=== PATIENT | male | born 1955 | race Two or more races ===

== ENCOUNTER 2023-01-18 13:40 | Outpatient (OUT) | payer BC, MEDICARE, SELFPAY ==
[2023-01-18 13:54] LABS: Bilirubin Urine NEGATIVE (NEGATIVE); Blood Urine NEGATIVE (NEGATIVE); Clarity Urine CLEAR (CLEAR); Color Urine LT. YELLOW (YELLOW); Glucose Urine UA NEGATIVE (NEGATIVE); Ketones Urine NEGATIVE (NEGATIVE); Leukocyte Esterase Urine NEGATIVE (NEGATIVE); Nitrite Urine NEGATIVE (NEGATIVE); Protein Urine NEGATIVE (NEG/TRACE)
[2023-01-18 13:56] LABS: Hematocrit 40.8 % (42.0-54.0); Hemoglobin 13.3 g/dL (14.0-18.0)
[2023-01-18 15:17] LABS: Alanine Aminotransferase 58 U/L (16-63); Albumin Globulin Ratio 0.9; Albumin Level 3.8 g/dL (3.4-5.0); Alkaline Phosphatase 94 U/L (46-116); Anion Gap 13.5; Aspartate Amino Transferase 47 U/L (15-37); BUN Creatinine Ratio 14.6; Bilirubin Total 0.5 mg/dL (0.2-1.0); Calcium 9.4 mg/dL (8.5-10.1); Carbon Dioxide 25.9 mmol/L (21.0-32.0); Chloride 105 mmol/L (98-107); Estimated GFR (African America 46 (>=60); Estimated GFR (Non-African Ame 38 (>=60); Globulin 4.2 g/dL; Glucose 106 mg/dL (74-106); Magnesium 1.9 mg/dL (1.8-2.4); Phosphorus 3.9 mg/dL (2.6-4.7); Potassium 4.4 mmol/L (3.5-5.1); Sodium 140 mmol/L (136-145); Uric Acid 5.9 mg/dL (3.5-7.2)
[2023-01-18 15:30] LABS: Creatinine Urine Random 104.64 mg/dL (20.00-300.00); Protein Creatinine Ratio Urine 0.14; Total Protein Urine Random 14.3 mg/dL (<=11.9)
[2023-01-19 11:09] LABS: PTH, Intact 29 pg/mL (15-65)
== END 2023-01-18 13:41 | disposition home or self-care (01) ==
LOC: LAB 02-05 15:02
PROVIDERS: PCP Internal Medicine; Visit Provider Internal Medicine Nephrology
DX: I12.9 Hypertensive chronic kidney disease with stage 1 through stage 4 chronic kidney disease, or unspecified chronic kidney disease (principal); N18.32 Chronic kidney disease, stage 3b; N17.9 Acute kidney failure, unspecified; I25.810 Atherosclerosis of coronary artery bypass graft(s) without angina pectoris; E78.5 Hyperlipidemia, unspecified; E87.5 Hyperkalemia
CPT/HCPCS: 36415; 80053; 81003; 82306; 82570; 83735; 83970; 84100; 84156; 84550; 85014; 85018

== ENCOUNTER 2023-02-25 13:18 | Outpatient (OUT) | payer BC, MEDICARE, SELFPAY ==
--- NOTE | 2023-02-25 14:03 | CA_ITS ---
The [facility] Test Date: 2023-02-25 Pat Name: KEL CASTILLO Department: Room: - Gender: Male [employer] Insurance Claim Examiner: Sonali Paula : 1955 Requested By: [id number] Order Number: [id number] Reading MD: LINDA FAGAN Interpretive Statements Monophasic doppler waveforms PVR waveforms with normal upstroke, delayed amplitude and loss of dicrotic notch Right: - significant gradient between the brachial and thigh cuff - abnormal HUBER Left: - significant gradient between the brachial and thigh cuff - abnormal HUBER Impression: - significant right inflow (femoral artery or above) arterial disease with moderate hemodynamic impairment of the right lower extremity at rest (right HUBER 0.64) - significant left inflow (femoral artery or above) arterial disease with moderate hemodynamic impairment of the left lower extremity at rest (left HUBER 0.71) Electronically Signed On 02-26-2023 7:18:17 EDT by LINDA FAGAN
== END 2023-02-25 13:19 | disposition home or self-care (01) ==
LOC: CARD 13:18
PROVIDERS: PCP Internal Medicine; Visit Provider Internal Medicine
DX: I73.9 Peripheral vascular disease, unspecified (principal)
CPT/HCPCS: 93923

== ENCOUNTER 2023-03-18 10:31 | Outpatient (OUT) | payer BC, MEDICARE, SELFPAY ==
[2023-03-18 12:02] LABS: Estimated Average Glucose 111 mg/dL; Glycohemoglobin A1C 5.5 % (4.5-6.2)
[2023-03-18 12:09] LABS: Chol HDL Ratio 4.7; Cholesterol 166 mg/dL (<=200); HDL Cholesterol 35 mg/dL (40-60); Triglycerides 208 mg/dL (<=150); VLDL CHOLESTEROL 41.6 mg/dL
== END 2023-03-18 10:32 | disposition home or self-care (01) ==
PROVIDERS: PCP Internal Medicine; Visit Provider Internal Medicine
DX: E78.5 Hyperlipidemia, unspecified (principal); Z13.1 Encounter for screening for diabetes mellitus
CPT/HCPCS: 36415; 80061; 83036

== ENCOUNTER 2023-07-10 15:17 | Emergency (ER) | payer BC, MEDICARE, SELFPAY ==
[2023-07-10 15:20] VITALS: BP 151/77; PULSE 71; RESP 16; TEMP 36.6; O2SAT 94; BMI 31.2
--- NOTE | 2023-07-10 15:32 | XR_ITS ---
The [address] [address] Patient Name: KEL CASTILLO MRN: [id number] date: 1955 Sex: M Assigned Patient Location: ED.MAIN Current Patient Location: ER Accession/Order Number: [id number] Exam Date: 07/10/2023 15:48 Report Date: 07/10/2023 16:08 At the request of: AGUEDA CAPUTO Procedure: XR shoulder LT min 2V EXAM: XR shoulder LT min 2V HISTORY: Shoulder pain after fall COMPARISON: None. TECHNIQUE: 3 views FINDINGS: No osseous lesion, fracture, dislocation or subluxation. Moderate degenerative changes of the acromioclavicular joint. Glenohumeral joint is unremarkable.. No visualized effusion. No visualized soft tissue edema. XR/XR shoulder LT min 2V IMPRESSION: No visualized acute abnormality Electronically authenticated by: BILL VENTURA Date: 07/10/2023 16:08
--- NOTE | 2023-07-10 15:34 | PC.NURSE ---
fell onto L shoulder 1 week ago. pain not going away and getting somewhat worse. did not have LOC. no otc meds today
--- NOTE | 2023-07-10 15:35 | ED.UPPEXIN1 ---
HPI - Extremity Injury (Upper) General Chief Complaint: Extremity Injury, Upper Stated Complaint: UPPER EXTREMITY INJURY Time Seen by Provider: 07/10/23 15:26 Source: patient History of Present Illness HPI narrative: 68 year old male presents to the ED for left shoulder pain s/p fall on 07/03/23. The pain has been increasing. Reports decreased ROM due to the pain. Denies injury to other areas. He developed bruising to the lateral upper arm and posterior shoulder within the past 1-2 days. Rates his pain 5/10 at this time. Related Data Previous Rx's Medication Instructions Recorded hydrocodone 5 mg-acetaminophen 325 1 tab PO Q8H PRN pain 4 days #12 07/10/23 mg tablet tabs Allergies Allergy/AdvReac Type Severity Reaction Status Date / Time No Known Drug Allergies Allergy Verified 07/10/23 15:24 Review of Systems ROS Constitutional Denies: fever or chills Ears, nose, mouth, and throat Denies: neck pain Cardiovascular Denies: chest pain Respiratory Denies: shortness of breath Gastrointestinal Denies: abdominal pain Musculoskeletal Reports: extremity pain and joint pain; Denies: neck pain Integumentary/Breast Reports: changes in skin color Exam Constitutional Vital Signs, click to edit/add: Last Vital Signs Temp 97.8 F 07/10/23 15:20 Pulse 71 07/10/23 15:20 Resp 16 07/10/23 15:20 BP 151/77 H 07/10/23 15:20 Pulse Ox 94 L 07/10/23 15:20 O2 Del Method Room Air 07/10/23 15:20 Common normals: oriented x3 General appearance: cooperative Eye Common normals: conjunctivae normal and no scleral icterus Neck & C-Spine Common normals: supple Cervical spine: cervical ROM normal; no pain with cervical ROM, no cervical spine tenderness, no paracervical muscle tenderness and no paracervical muscle spasm Chest Chest: symmetrical chest wall rise Respiratory Common normals: normal respiratory effort Effort & inspection: able to speak in complete sentences and symmetric chest movement Cardio Common normals: regular rate and regular rhythm Peripheral pulses: radial pulses present Extremity Left upper extremity: shoulder joint (Tenderness to anterior and posterior shoulder. No deformity. ) Left shoulder joint: ROM (Decreased due to pain.), upper arm (Purplish-yellow bruising to upper lateral arm and posterior shoulder.) and elbow joint (Full ROM. No deformity or tenderness.) Course Vital Signs Vital signs: Vital Signs Temperature 97.8 F 07/10/23 15:20 Pulse Rate 71 07/10/23 15:20 Respiratory Rate 16 07/10/23 15:20 Blood Pressure 151/77 H 07/10/23 15:20 Pulse Oximetry 94 L 07/10/23 15:20 Oxygen Delivery Method Room Air 07/10/23 15:20 Temperature 97.8 F 07/10/23 15:20 Pulse Rate 71 07/10/23 15:20 Respiratory Rate 16 07/10/23 15:20 Blood Pressure 151/77 H 07/10/23 15:20 Pulse Oximetry 94 L 07/10/23 15:20 Oxygen Delivery Method Room Air 07/10/23 15:20 MDM - Extremity Injury (Upper) MDM Narrative Medical decision making narrative: Pt has decreased ROM to the left shoulder. There is concern for rotator cuff injury. Imaging was negative for acute findings. OARRS was reviewed. A prescription was provided for [employer]. He was setup with an appointment on Saturday07/15/[address] Mcgowan. Differential Diagnosis Differential diagnosis: Likely dislocation of shoulder and other (Rotator cuff injury, shoulder sprain/strain.) Medical Records Attestation: I reviewed the patient's medical records. Imaging Data Left shoulder x-ray: Attestation: I have reviewed the pertinent imaging results. Radiologist's impression: Procedure: XR shoulder LT min 2V EXAM: XR shoulder LT min 2V HISTORY: Shoulder pain after fall COMPARISON: None. TECHNIQUE: 3 views FINDINGS: No osseous lesion, fracture, dislocation or subluxation. Moderate degenerative changes of the acromioclavicular joint. Glenohumeral joint is unremarkable.. No visualized effusion. No visualized soft tissue edema. XR/XR shoulder LT min 2V IMPRESSION: No visualized acute abnormality Electronically authenticated by: BILL VENTURA Date: 07/10/2023 16:08 Discharge Plan Discharge Chief Complaint: Extremity Injury, Upper Clinical Impression: Injury of left rotator cuff Patient Disposition: Home, Self-Care Time of Disposition Decision: 16:22 Condition: Good Mode of Transportation: Private Vehicle Prescriptions / Home Meds: New hydrocodone-acetaminophen 5-325 mg tablet 1 tab PO Q8H PRN (Reason: pain) 4 Days Qty: 12 0RF Instructions: Rotator Cuff Injury (ED) Stand Alone Forms: Portal Instructions Referrals: Carlyle Mcgowan MD [Physician] - 07/15/23 10:00 am Shaikh Grimes MD [Primary Care Provider] - 1 week Discharge Date/Time: 07/10/23 16:33
[2023-07-10] MEDS: OXYCODONE HCL/ACETAMINOPHEN 5MG/325MG 1 TAB PO (15:44)
== END 2023-07-10 16:33 | disposition home or self-care (01) ==
PROVIDERS: Emergency Provider Emergency Medicine; PCP Internal Medicine
DX: S46.002A Unspecified injury of muscle(s) and tendon(s) of the rotator cuff of left shoulder, initial encounter (principal); W19.XXXA Unspecified fall, initial encounter
CPT/HCPCS: 73030; 99283

== ENCOUNTER 2023-07-29 11:11 | Outpatient (OUT) | payer BC, MEDICARE, SELFPAY ==
--- NOTE | 2023-07-29 11:14 | XR_ITS ---
The [address] [address] Patient Name: KEL CASTILLO MRN: [id number] date: 1955 Sex: M Assigned Patient Location: [facility] Current Patient Location: [facility] Accession/Order Number: [id number] Exam Date: 07/29/2023 11:20 Report Date: 07/29/2023 16:01 At the request of: BIMAL ZHANG Procedure: XR shoulder LT min 2V EXAM: XR shoulder LT min 2V HISTORY: Closed Nondisplaced Fracture Of Proximal Left Humerus S42.29. COMPARISON: Left shoulder study dated 07/10/2023. TECHNIQUE: 3 views of the left shoulder were obtained. FINDINGS: No convincing evidence of acute fracture or dislocation. Glenohumeral relationship appears grossly unremarkable. Bwes-op-hefekgos degenerative changes about the acromioclavicular joint. Soft tissues are grossly within normal limits. Postoperative sternotomy wires and clips are present. XR/XR shoulder LT min 2V IMPRESSION: Left shoulder study fails to demonstrate definite acute fracture or dislocation. Follow-up as needed. Electronically authenticated by: FABIAN JOSHUA Date: 07/29/2023 16:01
== END 2023-07-29 11:12 | disposition home or self-care (01) ==
LOC: RAD 11:11
PROVIDERS: PCP Internal Medicine; Visit Provider Orthopaedic Surgery
DX: S42.295A Other nondisplaced fracture of upper end of left humerus, initial encounter for closed fracture (principal)
CPT/HCPCS: 73030

== ENCOUNTER 2023-08-26 11:20 | Outpatient (OUT) | payer BC, MEDICARE, SELFPAY ==
--- NOTE | 2023-08-26 | XR_ITS ---
[address] [address] Patient Name: KEL CASTILLO MRN: [id number] date: 1955 Sex: M Assigned Patient Location: [facility] Current Patient Location: [facility] Accession/Order Number: [id number] Exam Date: 08/26/2023 11:50 Report Date: 08/26/2023 15:14 At the request of: BIMAL ZHANG Procedure: XR shoulder LT min 2V 3 views of the left shoulder INDICATION: Pain COMPARISON: 07/29/2023 XR/XR shoulder LT min 2V IMPRESSION: Mild degenerative changes of the left shoulder without evidence for acute fracture or dislocation. Soft tissues are grossly unremarkable. Electronically authenticated by: VIDYA DEL VALLE Date: 08/26/2023 15:14
--- OUTSIDE RECORDS SUMMARY | 2023-08-26 11:28 | XMS_ITS | CCD ---
Author Name Unknown Address [address] [place] [address] Organization [facility] Care Team Providers Care Basketball Coach Name Role Phone AMBURN, JOMAR Unavailable Unavailable AMBURN, JOMAR Unavailable Unavailable AMBURN, JOMAR Unavailable Unavailable AMBURN, JOMAR Unavailable Unavailable AMBURN, JOMAR Unavailable Unavailable AMBURN, JOMAR Unavailable Unavailable Genesis, Thomas Unavailable Reuben Triana Unavailable Susannah Nevarez Unavailable Cristo Suazo Unavailable Cristo Suazo Unavailable Genesis, Thomas Unavailable Corona Monroe Unavailable Genesis, Thomas Unavailable MD Corona Monroe Attending Provider DO Daria Cardoza Primary Care Provider Genesis, Thomas Unavailable Nadira Choi Unavailable Lisseth Toscano Unavailable EBONY KAUFMAN Attending Unavailable EBONY KAUFMAN Referring Unavailable EBONY KAUFMAN Attending Unavailable JESSIE LAY Referring Unavailable JESSIE LAY Attending Unavailable Genesis, Thomas Unavailable SHAIKH Randolph ROCKWELL Consulting Unavailable SHAIKH Randolph R[place]LL Primary Care Unavailable SHAIKH Randolph R[place] Admitting Unavailable SHAIKH Randolph [place] Attending Unavailable SHAIKH Randolph R[place]LL Primary Care Unavailable VALERIE, DR FLORES Attending Unavailable VALERIE, DR FLORES Consulting Unavailable VALERIE, DR FLORES Admitting Unavailable LISSETH TOSCANO Admitting Unavailable LISSETH TOSCANO Attending Unavailable LISSETH TOSCANO Consulting Unavailable NON STAFF Primary Care Unavailable Lucy Cope Admitting Unavailable Lucy Cope Attending Unavailable Corona Monroe Admitting Unavailable Corona Monroe Attending Unavailable Daria Cardoza Primary Care Unavailable Medications Current Medications Medication Drug Class(es) Dates Sig (Normalized) Sig (Original) amLODIPine 5 mg oral tablet (20 sources) Dihydropyridine Calcium Channel Kelsy Start: 10-22-2019 take 5 mg by mouth once daily Amlodipine Active 5 MG PO Daily October 22, 2019 12:00am take 1 tablet by matt th every twenty-four hours amLODIPine Besylate 10 MG 1 tablet Orall y Once a day for 90 day(s) Active take 1 tablet by mouth every twe lve hours amLODIPine Besylate 5 MG 1 tablet Orally twice a day for 90 day(s) Active Comment on above: amlodipine 5 mg tabl et TAKE 1 TABLET BY MOUTH EVERY DAY aspirin 81 mg delayed release oral tablet (20 sources) Platelet Aggregation Inhibitor, Nonsteroidal Anti-inflammatory Drug Start: 10-22-2019 take 81 mg by mouth once daily Aspirin Active 81 MG PO Daily October 22, 2019 12:00am aspirin, enteric coated (ASPIRIN, ENTERIC COATED) 81 mg EC tablet q 24 HR. 0 Active take 1 tablet by mouth once shonna y Aspirin Adult Low Dose 81 MG 1 tablet Orally Once a day Active Comment on above: q 24 HR. atorvastatin 80 mg oral tablet (20 sources) HMG-CoA Reductase Inhibitor Start: 0 take 80 mg by mouth once daily Atorvastatin Active 80 MG PO Daily October 22, 2019 12:00am Comment on above: atorvastatin 80 mg t ablet TAKE 1 TABLET BY MOUTH EVERY DAY busPIRone hydrochloride 15 mg oral tablet (20 sources) Start: 0 End: 1 take 15 mg by mouth twice daily Buspirone Active 15 MG PO Twice daily September 13, 2020 1:00am Comment on above: buspirone 15 mg tabl et TAKE 1 TABLET BY MOUTH TWICE DAILY Centrum Silver 50+Men - (20 sources) Centrum Silver 5 0+Men - as directed Orally Active clopidogrel 75 mg oral tablet (20 sources) P2Y12 Platelet Inhibitor Start: 10-22-2019 take 75 mg by mouth once daily Clopidogrel Active 75 MG PO Daily October 22, 2019 12:00am Comment on above: clopidogrel 75 mg ta blet TAKE 1 TABLET BY MOUTH AT BEDTIME Fish Oils (20 sources) take 1 capsule by mouth once daily take 1 capsule by mouth once vijaya ly Fish Oil 1000 MG 1 capsule Orally Once a day Active 120 actuat fluticasone propionate 0.115 mg/actuat / salmeterol 0.021 mg/actuat metered dose inhaler (9 sources) Corticosteroid, beta2-Adrenergic Agonist take 2 puff(s) by inhalation twice daily 30 actuat fluticasone furoate 0.1 mg/actuat / umeclidinium 0.0625 mg/actuat / vilanterol 0.025 mg/actuat dry powder inhaler (8 sources) Anticholinergic, Corticosteroid, beta2-Adrenergic Agonist Start: 022 take 1 puff(s) by inhalation once daily Trelegy Ellipta 100-62.5-25 MCG/INH 1 puff Inhalation Once a day for 30 days Feb, Active 30 actuat fluticasone furoate 0.1 mg/actuat / vilanterol 0.025 mg/actuat dry powder inhaler (14 sources) Corticosteroid, beta2-Adrenergic Agonist Start: 021 Fluticasone Furoate-Vilanterol (Breo Ellipta) 100-25 mcg/dose blister with device Active 1 INH INHALATION Daily September 13, 2020 1:00am Start: 08-01-2020 End: 02-09-2022 take 1 puff(s) by mouth once daily BREO ELLIPTA 100-25 mcg/dose inhaler INHALE 1 PUFF BY MOUTH EVERY DAY 0 11/05/2021 02/09/2022 Discontinued Start: 08-01-2020 Comment on above: INHALE 1 PUFF BY MATT TH EVERY DAY 24 hr isosorbide mononitrate 60 mg extended release oral tablet (20 sources) Nitrate Vasodilator Start: 0 take 60 mg by mouth once daily Isosorbide Mononitrate Active 60 MG PO Daily October 22, 2019 12:00am Comment on above: isosorbide mononitra te ER 60 mg tablet,extended release 24 hr TAKE 1 TABLET BY MOUTH EVERY MORNING 24 hr metoprolol succinate 50 mg extended release oral tablet (20 sources) beta-Adrenergic Kelsy Start: 0 take 50 mg by mouth once daily Metoprolol Succinate Active 50 MG PO Daily October 22, 2019 12:00am take 1 tablet by matt th every twelve hours Metoprolol Succinate ER 50 MG 1 tablet Orally twice a day for 90 days Active take 1 capsule by mouth twice da aníbal Metoprolol Succinate 50 MG 1 capsule Orally twice a day Active Comment on above: metoprolol succinate ER 50 mg tablet,extended release 24 hr TAKE 1 TABLET BY MOUTH TWICE DAILY Multivitamin preparation (1 source) Start: 09-13-19 21 take 1 tablet by mouth once daily Multivitamin Active 1 TAB PO Daily September 13, 2020 1:00am Nitro Sublingual 0.4 0.4mg (20 sources) Nitro Sublingual 0.4 0.4mg 1 Sublingual Every 5min x3 PRN Active nitroglycerin 0.4 mg sublingual tablet (10 sources) Nitrate Vasodilator Start: 10-22-2019 Nitroglyce rin Active 0.4 MG SUBLINGUAL every 5 to 15 minutes October 22, 2019 12:00am nitroglycerin toscano blingual (NITROQUICK) 0.4 mg SL tablet nitroglycerin 0.4 mg sublingual tablet 0 Active Comment on above: nitroglycerin 0.4 mg sublingual tablet OLANZapine 5 mg oral tablet (20 sources) Atypical Antipsychotic Start: 0 take 5 mg by mouth once daily at bedtime Olanzapine Active 5 MG PO Daily at bedtime October 22, 2019 12:00am take 1 tablet by matt th every twenty-four hours OLANZapine 7.5 MG 1 tablet Orally Once a day for 30 days Active Comment on above: olanzapine 5 mg tabl et TAKE 1 TABLET BY MOUTH EVERY DAY AT BEDTIME Adolphus-3 Fatty Acids (1 source) Start: 09-13-2020 take 1000 mg by mouth once daily Adolphus-3 Fatty Acids Active 1000 MG PO Daily September 13, 2020 1:00am Paxlovid 10 x 150 MG & 10 x 100MG (1 source) Start: 03-07-2022 Paxlovid 10 x 150 MG & 10 x 100MG as directed Orally Twice a day for 5 days Feb, Active sertraline 100 mg oral tablet (20 sources) Serotonin Reuptake Inhibitor Start: 10-22-2019 take 100 mg by mouth once daily Sertraline Active 100 MG PO Daily October 22, 2019 12:00am take 1.5 tablets by mouth once d aily Sertraline HCl 100 MG 1.5 tablet Orally Once a day for 30 days Active Comment on above: sertraline 100 mg ta blet TAKE 1 AND 1/2 TABLETS BY MOUTH EVERY DAY tiotropium 0.018 mg inhalation powder (13 sources) Anticholinergic take 1 capsule by inhalation once daily Spiriva HandiHaler 18 MCG 1 capsule by inhaling the contents of the capsule using the HandiHaler device Inhalation Once a day Active traMADol hydrochloride 50 mg oral tablet (1 source) Opioid Agonist Start: 09-30-2020 take 0.5-1 tablets by mouth every six hours as needed for pain Tramadol (Ultram) 50 mg tablet Active 50 MG PO Q6H 30 September 30, 2020 1:00am 1/2 - 1 tab po q 6 hours prn pain traZODone hydrochloride 100 mg oral tablet (20 sources) Serotonin Reuptake Inhibitor Start: 10-22-2019 take 1 tablet by mouth every twenty-four hours traZODone HCl 100 MG 1 tablet at bedtime Orally Once a day for 30 days Jan, Active Comment on above: Take 100 mg by mouth daily at bedtime. Trelegy Ellipta 100-62.5-25 MCG/INH (3 sources) Start: 02-27-2022 take 1 puff(s) by inhalation once daily Trelegy Ellipta 100-62.5-25 MCG/INH 1 puff Inhalation Once a day for 30 days Feb, Active Start: 02-27-2022 Start: 02-27-2022 take 1 puff(s) by in halation once daily Trelegy Ellipta 100-62.5-25 MCG/INH 1 puff Inhalation Once a day for 30 days Feb, Not-Taking zolpidem tartrate 10 mg oral tablet (13 sources) gamma-Aminobutyric Acid-ergic Agonist Start: 02-08-2022 take 1 tablet by mouth every twenty-four hours Ambien 10 MG 1 tablet at bedtime Orally Once a day for 30 days g47.0 Jan, Active {10 (nirmatrelvir 150 MG Oral Tablet) / 10 (ritonavir 100 MG Oral Tablet) } Pack [Paxlovid 150 MG /100 MG Dose Pack] (3 sources) Start: 03-07-2022 Start: 03-07-2022 Paxlovid 10 x 150 MG & 10 x 100MG as directed Orally Twice a day for 5 days Feb, Active Completed/Discontinued Medications Medication Drug Class(es) Dates Sig (Normalized) Sig (Original) [id number] 200 actuat albuterol 0.09 mg/actuat metered dose inhaler (20 sources) beta2-Adrenergic Agonist Start: 12-02-2021 take 1 puff(s) by mouth every four hours as needed albuterol HFA (PROVENTIL HFA, VENTOLIN HFA) 90 mcg/actuation inhaler INHALE 1 PUFF BY MOUTH EVERY 4 HOURS NEEDED 0 12/02/2021 Active Start: 09-13-2020 take 90 ug by inhala tion every four hours Albuterol Sulfate Active 90 MCG INHALATION Q4H September 13, 2020 1:00am Start: 08-01-2020 take 1 puff(s) by in halation every four hours as needed Ventolin HFA 108 (90 Base) MCG/ACT 1 puff as needed Inhalation every 4 hrs for 30 day(s) PRN Jul, Not-Taking Start: 08-01-2020 take 1 puff(s) by mo uth every four hours as needed Albuterol Sulfate HFA 108 (90 Base) MCG/ACT INHALE 1 PUFF BY MOUTH EVERY 4 HOURS NEEDED for 30 PRN Active Comment on above: albuterol sulfate HF A 90 mcg/actuation aerosol inhaler INHALE 1 PUFF BY MOUTH EVERY 4 HOURS NEEDED INHALE 1 PUFF BY MATT TH EVERY 4 HOURS NEEDED 24 hr buPROPion hydrochloride 150 mg extended release oral tablet (20 sources) Aminoketone Start: 12-05-19 End: 04-10-20 take 1 tablet by mouth once daily in the morning buPROPion XL (WELLBUTRIN XL) 150 mg 24 hr tablet TAKE 1 TABLET BY MOUTH EVERY DAY IN THE MORNING 0 12/04/2021 04/10/2022 Discontinued Start: 10-22-2019 take 100 mg by mouth once shonna y Bupropion Hcl Active 100 MG PO Daily October 22, 2019 12:00am Start: 10-22-2019 take 200 mg by mouth once shonna y Bupropion Hcl Active 200 MG PO Daily October 22, 2019 12:00am take 1 tablet by matt th every twenty-four hours buPROPion HCl ER (XL) 300 MG 1 tablet in the morning Orally Once a day for 30 days Active Comment on above: bupropion HCl XL 300 mg 24 hr tablet, extended release TAKE 1 TABLET BY MOUTH EVERY DAY IN THE MORNING TAKE 1 TABLET BY MATT TH EVERY DAY IN THE MORNING doxepin hydrochloride 50 mg oral capsule (18 sources) Tricyclic Antidepressant Start: take 1 capsule by mouth every twenty-four hours Doxepin HCl 100 MG 1 capsule at bedtime Orally Once a day for 30 days Nov, Active Start: 12-04-2021 take 1 capsule by mo ut every twenty-four hours Doxepin HCl 25 MG 1 capsule at bedtime Orally Once a day for 30 day(s) Nov, Active Start: 12-04-2021 End: 08-15-2022 doxepin capsule 50 mg famotidine 20 mg oral tablet (20 sources) Histamine-2 Receptor Antagonist Start: 10-22-2019 End: 09-13-2020 take 20 mg by mouth once daily at bedtime Famotidine Discontinued 20 MG PO Daily at bedtime October 22, 2019 12:00am September 13, 2020 4:47pm Comment on above: famotidine 20 mg tab let TAKE 1 TABLET BY MOUTH EVERY DAY AT BEDTIME NEEDED fenofibrate 43 mg oral capsule (20 sources) Peroxisome Proliferator Receptor alpha Agonist Start: 10-22-2019 take 1 capsule by mouth twice daily Fenofibrate Micronized 43 mg capsule Take 43 mg by mouth twice daily. 0 12/15/2021 Active Comment on above: Take 43 mg by mouth twice daily. lisinopril 10 mg oral tablet (9 sources) Angiotensin Converting Enzyme Inhibitor End: 08-15-2022 lisinopril (ZESTRIL, PRINIVIL) 10 mg tablet lisinopril 10 mg tablet 0 08/15/2022 Discontinued Comment on above: lisinopril 10 mg tab let methylPREDNISolone (9 sources) Corticosteroid Start: 12-22-2021 End: 08-15-2022 methylPREDNISolone (MEDROL, TEAGAN,) 4 mg Dose-Pack Take as instructed 1 Package 0 12/22/2021 08/15/2022 Discontinued Start: 12-22-2021 methylPREDNISo lone (MEDROL, TEAGAN,) 4 mg Dose-Pack Take as instructed 1 Package 0 12/22/2021 Active Comment on above: Take as instructed Multivitamins-Minerals -Lutein (MULTIVITAMIN 50 PLUS) tab (9 sources) End: 08-15-2022 Widkfswayobou-Urlmmzja-Jmjw in (MULTIVITAMIN 50 PLUS) tab Take 1 tablet by mouth once daily. 0 08/15/2022 Discontinued Multivitamins-Mi nerals-Lutein (MULTIVITAMIN 50 PLUS) tab Take 1 tablet by mouth once daily. 0 Active Comment on above: Take 1 tablet by matt th once daily. omega 0-eqr-eso-fish oil (FISH OIL) 100-160-1,000 mg cap (9 sources) omega 3-dha-epa- fish oil (FISH OIL) 100-160-1,000 mg cap Take by mouth. 0 Active Comment on above: Take by mouth. Problems Active Problems Problem Classification Problem Date Documented Date Episodic/Chronic Abdominal hernia (1 source) Hernia of anterior abdominal wall; Translations: [Ventral hernia without obstruction or gangrene] 09-30-2020 Episodic Abdominal pain (1 source) Unspecified abdominal pain; Translations: [Unspecified abdominal pain] Onset: 04-09-2023 Episodic Acute and unspecified renal failure (2 sources) Acute kidney failure, unspecified; Translations: [KELLIE (acute kidney injury) N17.9] Onset: 05-23-2021 Resolved: 05-23-2021 Episodic Anxiety disorders (20 sources) Generalized anxiety disorder; Translations: [Generalized anxiety disorder] Chronic Cancer of bronchus; lung (20 sources) History of malignant neoplasm of thoracic cavity structure; Translations: [Personal history of other malignant neoplasm of bronchus and lung] Onset: 02-27-2022 Resolved: 02-27-2022 Episodic Chronic kidney disease (20 sources) Chronic kidney disease stage 3; Translations: [Chronic kidney disease, stage 3 (moderate)] Chronic Chronic obstructive pulmonary disease and bronchiectasis (20 sources) Simple chronic bronchitis; Translations: [Simple chronic bronchitis] Onset: 01-05-2022 Resolved: 02-27-2022 Chronic Coma; stupor; and brain damage (15 sources) Daytime somnolence; Translations: [Somnolence] Onset: 01-29-2022 Resolved: 01-29-2022 Episodic Complication of device; implant or graft (20 sources) Arteriosclerosis of coronary artery bypass graft; Translations: [Atherosclerosis of coronary artery bypass graft(s) without angina pectoris] Onset: 05-23-2021 Resolved: 08-16-2021 Chronic Coronary atherosclerosis and other heart disease (4 sources) Atherosclerotic heart disease of [place] coronary artery without angina pectoris; Translations: [ASHD [place] W/O ANGINA PECTORIS] Onset: 07-27-2022 Chronic Delirium, dementia, and amnestic and other cognitive disorders (3 sources) Dementia associated with another disease; Translations: [Dementia in other diseases classified elsewhere with behavioral disturbance] Onset: 12-22-2021 Chronic Disorders of lipid metabolism (20 sources) Hyperlipidemia; Translations: [Hyperlipidemia, unspecified] Onset: 05-23-2021 Resolved: 05-23-2021 Chronic Essential hypertension (20 sources) Essential hypertension; Translations: [Essential (primary) hypertension] Onset: 12-26-2021 Resolved: 12-26-2021 Chronic Fluid and electrolyte disorders (3 sources) Hyperkalemia; Translations: [HYPERKALEMIA] Onset: 07-11-2022 Episodic Heart valve disorders (1 source) Nonrheumatic mitral (valve) insufficiency; Translations: [NONRHEUMATIC MITRAL INSUFFICIENCY] Onset: 02-22-2022 Chronic Hypertension with complications and secondary hypertension (20 sources) Malignant hypertensive chronic kidney disease; Translations: [Hypertensive chronic kidney disease with stage 1 through stage 4 chronic kidney disease, or unspecified chronic kidney disease] Onset: 05-23-2021 Resolved: 05-23-2021 Chronic Malaise and fatigue (20 sources) Fatigue; Translations: [Chronic fatigue, unspecified] Chronic Mood disorders (20 sources) Depressive disorder; Translations: [Depression, unspecified depression type] Onset: 12-18-2021 Resolved: 03-13-2022 Chronic Mood disorders (1 source) Mood disorders; Translations: [Depression, unspecified depression type] Onset: 12-22-2021 Other hereditary and degenerative nervous system conditions (8 sources) Impaired cognition; Translations: [Mild cognitive impairment, so stated] Onset: 04-12-2022 Chronic Other hereditary and degenerative nervous system conditions (1 source) Mild cognitive impairment, so stated; Translations: [Cognitive impairment, mild, so stated] Onset: 12-22-2021 Chronic Other lower respiratory disease (15 sources) Nodule of lung; Translations: [Solitary pulmonary nodule] Episodic Other lower respiratory disease (3 sources) Solitary pulmonary nodule Onset: 01-05-2022 Resolved: 02-27-2022 Episodic Residual codes; unclassified (11 sources) Sleep apnea; Translations: [Sleep apnea, unspecified] Chronic Residual codes; unclassified (1 source) Sleep apnea, unspecified Onset: 02-27-2022 Resolved: 02-27-2022 Chronic Residual codes; unclassified (5 sources) Obstructive sleep apnea syndrome; Translations: [Obstructive sleep apnea (adult) (pediatric)] Chronic Residual codes; unclassified (1 source) Obstructive sleep apnea (adult) (pediatric) Chronic Residual codes; unclassified (1 source) Obstructive sleep apnea (adult)(pediatric); Translations: [Obstructive sleep apnea (adult) (pediatric)] Onset: 07-03-2022 Chronic Residual codes; unclassified (11 sources) History of lung lobectomy; Translations: [Acquired absence of lung [part of]] Episodic Residual codes; unclassified (2 sources) Acquired absence of lung [part of] Onset: 02-27-2022 Resolved: 02-27-2022 Episodic Unclassified (1 source) Established Patient Onset: 08-15-2022 Past or Other Problems Problem Classification Problem Date Documented Da te Episodic/Chronic Chronic kidney disease (14 sources) Chronic kidney disease; Translations: [Chronic kidney disease, stage 3b] Onset: 05-23-2021 Resolved: 05-23-2021 Other lower respiratory disease (7 sources) Shortness of breath; Translations: [SHORTNESS OF BREATH] Onset: 12-26-2021 Resolved: 01-29-2022 Episodic Other lower respiratory disease (7 sources) Dyspnea; Translations: [Shortness of breath] Onset: 02-09-2022 Episodic Other lower respiratory disease (1 source) Other forms of dyspnea Onset: 02-27-2022 Resolved: 02-27-2022 Episodic Results Test Name Value Interpretation Reference Range Facility CT abdomen pelvis wo [place] [id number] 04-09-2023 CT abdomen pelvis wo [facility] [address] [place], [place] [id number] CT Scan Report Signed Patient: Kel Castillo Jr MR#: [id number] : 1955 Acct:[id number] Age/Sex: 67 / M ADM Date: 04/09/23 Loc: ER Room: Type: [facility] ER Attending Dr: Copies to: Lucy Cope APRN Ordering Provider: Lucy Cope APRN Date of Service: 04/09/23 CT/CT abdomen pelvis wo con: abdominal pain CT Abdomen and Pelvis withoutcontrast TECHNIQUE: Axial imaging with 2-D reconstruction. . The CT exam was performed using one or more the following dose reduction techniques: Automated exposure control, adjustment of the MA and/or Kv according to patient size, or use of the iterative reconstruction technique. COMPARISON: None History: Left flank pain. Hematuria. LIMITATIONS: None LOWER THORAX sternotomy wires. Basilar linear atelectasis/scarring. LIVER: Hepatic steatosis. GALLBLADDER: No gallbladder abnormality identified. BILE DUCTS: No dilatation SPLEEN: Mild splenomegaly. PANCREAS: Unremarkable ADRENAL GLANDS: Unremarkable KIDNEYS:Unremarkable AORTA: No abdominal aortic aneurysm identified. Extensive atherosclerosis. RETROPERITONEUM: No significant retroperitoneal abnormalities identified. MESENTERY:Unremarkable SMALL BOWEL: The small bowel loops are nondistended. APPENDIX: The appendix is normal. COLON: Proximal sigmoid colon wall thickening with peridiverticular inflammation consistent with acute diverticulitis. No extraluminal air. No abscess. Diffuse colonic diverticulosis. URINARY BLADDER: Urinary bladder is unremarkable. REPRODUCTIVE SYSTEM: Mildly enlarged prostate gland PNEUMOPERITONEUM: None PERITONEAL FLUID:None BONY STRUCTURES: Extensive lumbosacral degenerative change. ABDOMINAL WALL: Unremarkable CT/CT abdomen pelvis wo con IMPRESSION: Acute uncomplicated proximal sigmoid diverticulitis. No nephrolithiasis or obstructive uropathy. Mild splenomegaly. Hepatic steatosis. Impression dictated by: Damien Negrete M.D.04/09/2023 2:28 PM Dictation Location: [place] [address] Transcribed By: [facility] 04/09/23 1428 Dictated By: Damien Negrete DO 04/09/23 142 Signed By: 04/09/23 142 Normal [facility] Complete Blood Count Auto Di ffon 04-09-2023 Basophils (Bld) [#/Vol] 0.1 10*3/uL Normal 0.0-0.2 [facility] Comment on above: Result Comment: PERF ORMED BY: [place] [address] PATHOLOGIST MAPPING ENGINEER TROY SIGALA M.D. Performed By: #### C BC #### [address] Basophils/100 WBC (Bld) 1.0 % Normal . [facility] Comment on above: Performed By: #### C BC #### [address] Eosinophils (Bld) [#/Vol] 0.2 10*3/uL Normal 0.0-0.45 [facility] Comment on above: Performed By: #### C BC #### [address] Eosinophils/100 WBC (Bld) 2.8 % Normal . [facility] Comment on above: Performed By: #### C BC #### [address] Erythrocyte distribution width (RBC) [Ratio] 14.5 % Normal 12.0-14.8 [facility] Comment on above: Performed By: #### C BC #### [address] Hematocrit (Bld) [Volume fraction] 39.2 % Normal 38.8-50.0 [facility] Comment on above: Performed By: #### C BC #### [address] Hemoglobin (Bld) [Mass/Vol] 13.0 g/dL Normal 13.0-17.0 [facility] Comment on above: Performed By: #### C BC #### [address] Lymphocytes (Bld) [#/Vol] 1.1 10*3/uL Normal 1.00-4.8 [facility] Comment on above: Performed By: #### C BC #### [facility] [address] Lymphocytes/100 WBC (Bld) 14.1 % Normal . [facility] Comment on above: Performed By: #### C BC #### [facility] [address] MCH (RBC) [Entitic mass] 30.4 pg Normal 27.5-35.2 [facility] Comment on above: Performed By: #### C BC #### [facility] [address] MCV (RBC) [Entitic vol] 91.5 fL Normal 83.5-101 [facility] Comment on above: Performed By: #### C BC #### [address] Mean Corpuscular HGB Conc 33.2 g/dL Normal 32.5-35.6 [facility] Comment on above: Performed By: #### C BC #### [place] [address] [place] Monocytes (Bld) [#/Vol] 0.5 10*3/uL Normal 0.0-0.8 [facility] Comment on above: Performed By: #### C BC #### [address] Monocytes/100 WBC (Bld) 16.97 % Normal 0.00-20.00 [facility] Comment on above: Performed By: #### C BC #### [place] [address] [place] Monocytes/100 WBC (Bld) 6.6 % Normal . [facility] Comment on above: Performed By: #### C BC #### [place] [address] [place] Neutrophils (Bld) [#/Vol] 5.9 10*3/uL Normal 1.8-7.7 [facility] Comment on above: Performed By: #### C BC #### [place] [address] [place] Neutrophils/100 WBC (Bld) 75.5 % Normal . [facility] Comment on above: Performed By: #### C BC #### [address] NRBC% 0.0 /100{WBC} Normal 0-0.5 [facility] Comment on above: Performed By: #### C BC #### [address] Platelet mean volume (Bld) [Entitic vol] 7.5 fL Normal 6.6-10.1 [facility] Comment on above: Performed By: #### C BC #### [address] Platelets (Bld) [#/Vol] 180 10*3/uL Normal 150-450 [facility] Comment on above: Performed By: #### C BC #### [address] RBC (Bld) [#/Vol] 4.29 10*6/uL Normal 3.90-5.60 [facility] Comment on above: Performed By: #### C BC #### [address] WBC (Bld) [#/Vol] 7.8 10*3/uL Normal 4.1-10.5 [facility] Comment on above: Performed By: #### C BC #### [address] Comprehensive Metabolic Pane noe 04-09-2023 Albumin [Mass/Vol] 4.3 g/dL Normal 3.5-5.7 [facility] Comment on above: Performed By: #### P TT, LIPASE, PT, CMP #### [address] Albumin/Globulin [Mass ratio] 1.2 {ratio} Normal [facility] Comment on above: Performed By: #### P TT, LIPASE, PT, CMP #### [address] ALP [Catalytic activity/Vol] 105 U/L High 34-104 [facility] Comment on above: Performed By: #### P TT, LIPASE, PT, CMP #### [address] ALT [Catalytic activity/Vol] 61 U/L High 7-52 [facility] Comment on above: Performed By: #### P TT, LIPASE, PT, CMP #### [address] Anion gap [Moles/Vol] 12.5 mmol/L Normal 6.0-15.0 [facility] Comment on above: Performed By: #### P TT, LIPASE, PT, CMP #### [address] AST [Catalytic activity/Vol] 62 U/L High 13-39 [facility] Comment on above: Performed By: #### P TT, LIPASE, PT, CMP #### [address] Bilirubin [Mass/Vol] 0.8 mg/dL Normal 0.3-1.0 [facility] Comment on above: Performed By: #### P TT, LIPASE, PT, CMP #### [address] Calcium [Mass/Vol] 9.0 mg/dL Normal 8.6-10.3 [facility] Comment on above: Performed By: #### P TT, LIPASE, PT, CMP #### [address] Chloride [Moles/Vol] 107 mmol/L Normal 98-107 [facility] Comment on above: Performed By: #### P TT, LIPASE, PT, CMP #### [address] CO2 [Moles/Vol] 25.1 mmol/L Normal 21.0-31.0 [facility] Comment on above: Performed By: #### P TT, LIPASE, PT, CMP #### [address] [place] [address] [place] Creatinine [Mass/Vol] 1.76 mg/dL High 0.70-1.30 [facility] Comment on above: Performed By: #### P TT, LIPASE, PT, CMP #### [address] Creatinine Clr Calc Pharmacy 40.17 [facility] Comment on above: Performed By: #### P TT, LIPASE, PT, CMP #### [address] GFR/1.73 sq M.predicted MDRD (S/P/Bld) [Vol rate/Area] 41.342 mL/min/{1.73_m2} [facility] Comment on above: Performed By: #### P TT, LIPASE, PT, CMP #### [address] Globulin (S) [Mass/Vol] 3.7 g/dL Normal [facility] Comment on above: Performed By: #### P TT, LIPASE, PT, CMP #### [address] Glucose [Mass/Vol] 89 mg/dL Normal 70-100 [facility] Comment on above: Result Comment: [facility] Glucose Reference Range is dependent on time and content of last meal. Glucose of more than 200 mg/dL in a nonstressed, ambulatory subject supports the diagnosis of Diabetes Mellitus. ADA recommended reference range Performed By: #### P TT, LIPASE, PT, CMP #### [address] Potassium [Moles/Vol] 4.6 mmol/L Normal 3.5-5.1 [facility] Comment on above: Performed By: #### P TT, LIPASE, PT, CMP #### [address] Protein [Mass/Vol] 8.0 g/dL Normal 6.4-8.9 [facility] Comment on above: Performed By: #### P TT, LIPASE, PT, CMP #### [address] [place] [address] [place] Sodium [Moles/Vol] 140 mmol/L Normal 136-145 [facility] Comment on above: Performed By: #### P TT, LIPASE, PT, CMP #### [facility] [address] [place] [address] [place] Urea nitrogen [Mass/Vol] 25 mg/dL Normal 7-25 [facility] Comment on above: Performed By: #### P TT, LIPASE, PT, CMP #### [place] [address] [place] Dipstick and Microscopicon 0 04-09-2023 Appearance (U) Cloudy Critically abnormal Clear [facility] Comment on above: Order Comment: Name Collection Type:: Clean-Voided Midstream Performed By: #### A DDONUAPLUS #### [address] Bacteria,Urine None Seen Normal None Seen [facility] Comment on above: Order Comment: Name Collection Type:: Clean-Voided Midstream Performed By: #### A DDONUAPLUS #### [place] [address] [place] Bilirubin,Urine Negative Normal Negative [facility] Comment on above: Order Comment: Name Collection Type:: Clean-Voided Midstream Performed By: #### A DDONUAPLUS #### [place] [address] [place] Color (U) Yellow Normal Yellow [facility] Comment on above: Order Comment: Name Collection Type:: Clean-Voided Midstream Performed By: #### A DDONUAPLUS #### [place] [address] [place] Glucose Ql (U) Normal Normal Normal [facility] Comment on above: Order Comment: Name Collection Type:: Clean-Voided Midstream Performed By: #### A DDONUAPLUS #### [place] [address] [place] Hyaline Casts,Urine None Seen Normal 0-8 [facility] Comment on above: Order Comment: Name Collection Type:: Clean-Voided Midstream Result Comment: PERF ORMED BY: [place] [address] PATHOLOGIST MAPPING ENGINEER TROY SIGALA M.D. Performed By: #### A DDONUAPLUS #### [place] [address] [place] Ketones Ql (U) Negative Normal Negative [facility] Comment on above: Order Comment: Name Collection Type:: Clean-Voided Midstream Performed By: #### A DDONUAPLUS #### [address] Leukocyte esterase Test strip Ql (U) Negative Normal Negative [facility] Comment on above: Order Comment: Name Collection Type:: Clean-Voided Midstream Performed By: #### A DDONUAPLUS #### [place] [address] [place] Nitrite,Urine Negative Normal Negative [facility] Comment on above: Order Comment: Name Collection Type:: Clean-Voided Midstream Performed By: #### A DDONUAPLUS #### [place] [address] [place] Occult Blood,Urine Negative Normal Negative [facility] Comment on above: Order Comment: Name Collection Type:: Clean-Voided Midstream Result Comment: PERF ORMED BY: [place] [address] PATHOLOGIST MAPPING ENGINEER TROY SIGALA M.D. Performed By: #### A DDONUAPLUS #### [place] [address] [place] pH (U) 5.5 [pH] Normal 5.0-9.0 [facility] Comment on above: Order Comment: Name Collection Type:: Clean-Voided Midstream Performed By: #### A DDONUAPLUS #### [place] [address] [place] Protein,Urine Negative Normal Negative [facility] Comment on above: Order Comment: Name Collection Type:: Clean-Voided Midstream Performed By: #### A DDONUAPLUS #### [address] RBC LM.HPF (Urine sed) [#/Area] 0 /[HPF] Normal 0-4 [facility] Comment on above: Order Comment: Name Collection Type:: Clean-Voided Midstream Performed By: #### A DDONUAPLUS #### [address] Specificy [place],Urine 1.014 Normal 1.001-1.030 [facility] Comment on above: Order Comment: Name Collection Type:: Clean-Voided Midstream Performed By: #### A DDONUAPLUS #### [address] Squamous Epithelial Cell,Urine None Seen Normal 0-2 [facility] Comment on above: Order Comment: Name Collection Type:: Clean-Voided Midstream Performed By: #### A DDONUAPLUS #### [address] Urobilinogen,Urine Normal Normal Normal [facility] Comment on above: Order Comment: Name Collection Type:: Clean-Voided Midstream Performed By: #### A DDONUAPLUS #### [address] WBC LM.HPF (Urine sed) [#/Area] 0 /[HPF] Normal 0-4 [facility] Comment on above: Order Comment: Name Collection Type:: Clean-Voided Midstream Performed By: #### A DDONUAPLUS #### [address] Lipaseon 04-09-2023 Lipase [Catalytic activity/Vol] 92.0 U/L High 11.0-82.0 [facility] Comment on above: Result Comment: PERF ORMED BY: [place] [address] PATHOLOGIST MAPPING ENGINEER TROY SIGALA M.D. Performed By: #### P TT, LIPASE, PT, CMP #### [address] Partial Thromboplastin Timeo n 04-09-2023 aPTT Coag (Bld) [Time] 30.9 s Normal 25.1-36.5 [facility] Comment on above: Result Comment: PERF ORMED BY: [place] [address] PATHOLOGIST MAPPING ENGINEER TROY SIGALA M.D. Performed By: #### P TT, LIPASE, PT, CMP #### [facility] [address] [place], [place] [id number] [place] Prothrombin Time INRon 04-09 INR Coag (PPP) [Relative time] 1.0 {INR} Normal [facility] Comment on above: Result Comment: INR Therapeutic Range A) Pre- and Peroperative OAT started two weeks before surgery. NOT HIP SURGERY: 1.5 - 2.5 HIP SURGERY: 2 - 3 B) Primary and secondary prevention of venous THROMBOSIS: 2 - 3 C) Active venous thrombosis, pulmonary embolism and prevention of recurrent venous thrombosis: 2 - 3 D) Prevention of arterial thromboembolism including patients with mechanical heart valves: 3 - 4.5 Performed By: #### P TT, LIPASE, PT, CMP #### [facility] [address] [place] [address] PT Coag (PPP) [Time] 11.9 s Normal 9.0-12.9 [facility] Comment on above: Performed By: #### P TT, LIPASE, PT, CMP #### [facility] [address] [place] [address] CNOVon 08-15-2022 CNOV Office Visit (DARÍO ) SAMIR CASTILLO ([id number]) 1955 M Date Time Provider Department 08/15/22 4:00 PM EBONY KAUFMAN During your visit today, we recorded the following information about you: Pulse Blood pressure Weight Height 61/minute 148/78 89.8 kg 1.676 m Ebony Kaufman DO 08/15/2022 5:31 PM Signed [facility] General Neurology Follow up/ Established patient visit Individuals who were included in, or assisted with the encounter were: Samir Castillo Ebony Kaufman DO Chief Complaint/Issues: Samir Castillo is a 67 year old male seen in the [facility] for General Neurology for: Follow-up Most Recent Neurological Assessment and Plan: Last Filed Values Date of Most Recent Assessment and Plan 04/12/22 Specialty General Neurology Assessment Mr Castillo is a 66 year old man with MCI, likely related to depression and potential sleep apnea. He sees a psychiatrist, but not psychologist Plan He was told to let me know about sleep study results Psychology referral made Follow-up 4 months HPI/Interval History: Here for follow-up with his daughter. Memory about the same, maybe a bit worse around Samson given the anniversary of his daughter's was around that time also. Since last visit was diagnosed with sleep apnea. Just started CPAP, getting used to it, not using it all night yet. Denies SI, had to start seeing a new psychiatrist since his regular one went to inpatient consults only. General Examination: BP 148/78 Pulse 61 Ht 167.6 cm (5' 6 ) Wt 89.8 kg (198 lb) SpO2 100% BMI 31.96 kg/m? General: Awake, alert, interactive, no acute distress, good nutritional status, normal development, well-kept Skin: Rash: absent Pigmentation: absent HEENT: Head: normocephalic, no dysmorphism Eyes: normal Oropharynx: normal Extremities: Edema: absent Trophic change: absent Heart: RRR, no cyanosis Lungs: Chest rise symmetrical Neurological Exam Mental Status Alert, fully oriented, attentive, speech and affect. Trouble with serial 7's and abstraction Motor Examination and Coordination Motor examination with normal bulk, strength and tone. No drift. Normal rapid alternating movements and coordination. No adventitious movements or significant tremor. Reflexes Deep tendon reflexes graded by [facility] Gait Gait normal Assessment AND Plan 08/15/2022 - General Neurology, Ebony Kaufman DO ASSESSMENT Mr. Castillo is a 67 year old man with MCI, largely attributed to severe JITENDRA and depression. PLAN He was told work with his providers for the depression and JITENDRA. We will re-evaluate things in 6 months No diagnosis found. No follow-ups on file. Data Review Objective Current Outpatient Medications Medication Sig traZODone (DESYREL) 100 mg tablet Take 100 mg by mouth daily at bedtime. albuterol HFA (PROVENTIL HFA, VENTOLIN HFA) 90 mcg/actuation inhaler albuterol sulfate HFA 90 mcg/actuation aerosol inhaler INHALE 1 PUFF BY MOUTH EVERY 4 HOURS NEEDED albuterol HFA (PROVENTIL HFA, VENTOLIN HFA) 90 mcg/actuation inhaler INHALE 1 PUFF BY MOUTH EVERY 4 HOURS NEEDED amLODIPine (NORVASC) 5 mg tablet amlodipine 5 mg tablet TAKE 1 TABLET BY MOUTH EVERY DAY aspirin, enteric coated (ASPIRIN, ENTERIC COATED) 81 mg EC tablet q 24 HR. atorvastatin (LIPITOR) 80 mg tablet atorvastatin 80 mg tablet TAKE 1 TABLET BY MOUTH EVERY DAY buPROPion XL (WELLBUTRIN XL) 300 mg 24 hr tablet bupropion HCl XL 300 mg 24 hr tablet, extended release TAKE 1 TABLET BY MOUTH EVERY DAY IN THE MORNING busPIRone (BUSPAR) 15 mg tablet buspirone 15 mg tablet TAKE 1 TABLET BY MOUTH TWICE DAILY clopidogrel (PLAVIX) 75 mg tablet clopidogrel 75 mg tablet TAKE 1 TABLET BY MOUTH AT BEDTIME doxepin capsule 50 mg (Patient not taking: No sig reported) famotidine (PEPCID) 20 mg tablet famotidine 20 mg tablet TAKE 1 TABLET BY MOUTH EVERY DAY AT BEDTIME NEEDED Fenofibrate Micronized 43 mg capsule Take 43 mg by mouth twice daily. isosorbide mononitrate ER (IMDUR) 60 mg 24 hr tablet isosorbide mononitrate ER 60 mg tablet,extended release 24 hr TAKE 1 TABLET BY MOUTH EVERY MORNING lisinopril (ZESTRIL, PRINIVIL) 10 mg tablet lisinopril 10 mg tablet (Patient not taking: Reported on 04/10/2022) metoprolol succinate ER (TOPROL XL) 50 mg 24 hr tablet metoprolol succinate ER 50 mg tablet,extended release 24 hr TAKE 1 TABLET BY MOUTH TWICE DAILY nitroglycerin sublingual (NITROQUICK) 0.4 mg SL tablet nitroglycerin 0.4 mg sublingual tablet OLANZapine (ZYPREXA) 5 mg tablet olanzapine 5 mg tablet TAKE 1 TABLET BY MOUTH EVERY DAY AT BEDTIME sertraline (ZOLOFT) 100 mg tablet sertraline 100 mg tablet TAKE 1 AND 1/2 TABLETS BY MOUTH EVERY DAY Multivitamins-Minerals -Lutein (MULTIVITAMIN 50 PLUS) tab Take 1 tablet by (more content not included)... Normal [facility] CBC AUTO DIFFon 07-27-2022 BASO # 0.1 103/ul Normal 0.0-0.1 [facility] Comment on above: Performed By: #### C BC #### [facility] [address] [place] [address] Dr. Hattie Newsome Basophils/100 WBC (Bld) 0.8 % Normal 0.2-2.0 [facility] Comment on above: Performed By: #### C BC #### [facility] [address] [place] [address] Dr. Hattie Newsome EO # 0.3 103/ul Normal 0.0-0.7 [facility] Comment on above: Performed By: #### C BC #### [facility] [address] [place] [address] Dr. Hattie Newsome Eosinophils/100 WBC (Bld) 3.2 % Normal 0.9-7.0 [facility] Comment on above: Performed By: #### C BC #### [facility] [address] [place] [address] Dr. Hattie Newsome Erythrocyte distribution width (RBC) [Ratio] 14.3 % Normal 11.0-15.0 [facility] Comment on above: Performed By: #### C BC #### [facility] [address] [place] [address] Dr. Hattie Newsome Hematocrit (Bld) [Volume fraction] 39.7 % Critically low 42.0-54.0 [facility] Comment on above: Performed By: #### C BC #### [facility] [address] [place], [place] [id number] Dr. Hattie Newsome Hemoglobin (Bld) [Mass/Vol] 13.0 g/dL Critically low 14.0-18.0 [facility] Comment on above: Performed By: #### C BC #### [facility] [address] [place] [address] Dr. Hattie Newsome IG # 0.06 10e3/ul Critically high 0.00-0.03 [facility] Comment on above: Performed By: #### C BC #### [facility] [address] [place] [address] Dr. Hattie Newsome IG % 0.8 % Critically high 0.0-0.5 [facility] Comment on above: Performed By: #### C BC #### [facility] [address] [place] [address] Dr. Hattie Newsome LYMPH # 1.3 103/ul Normal 1.2-3.8 [facility] Comment on above: Performed By: #### C BC #### [facility] [address] [place] [address] Dr. Hattie Newsome Lymphocytes/100 WBC (Bld) 16.8 % Critically low 20.5-60.0 [facility] Comment on above: Performed By: #### C BC #### [facility] [address] [place] [address] Dr. Hattie Newsome MANUAL DIFF REQ NO Normal [facility] Comment on above: Performed By: #### C BC #### [facility] [address] [place] [address] Dr. Hattie Newsome MCH (RBC) [Entitic mass] 30.5 pg Normal 25.9-34.0 [facility] Comment on above: Performed By: #### C BC #### [facility] [address] [place] [address] Dr. Hattie Newsome MCHC (RBC) [Mass/Vol] 32.7 g/dL Normal 29.9-35.2 [facility] Comment on above: Performed By: #### C BC #### [facility] [address] [place] [address] Dr. Hattie Newsome MCV (RBC) [Entitic vol] 93.2 fL Normal 80.0-94.0 [facility] Comment on above: Performed By: #### C BC #### [facility] [address] [place] [address] Dr. Hattie Newsome MONO # 0.5 103/ul Normal 0.3-0.8 [facility] Comment on above: Performed By: #### C BC #### [facility] [address] [place] [address] Dr. Hattie Newsome Monocytes/100 WBC (Bld) 7.0 % Normal 1.7-12.0 [facility] Comment on above: Performed By: #### C BC #### [facility] [address] [place] [address] Dr. Hattie Newsome NEUT # 5.5 103/ul Normal 1.4-6.5 [facility] Comment on above: Performed By: #### C BC #### [facility] [address] [place] [address] Dr. Hattie Newsome Neutrophils/100 WBC (Bld) 71.4 % Normal 43.0-75.0 [facility] Comment on above: Performed By: #### C BC #### [facility] [address] [place] [address] Dr. Hattie Newsome Platelet mean volume (Bld) [Entitic vol] 9.4 fL Critically low 9.5-13.5 [facility] Comment on above: Performed By: #### C BC #### [facility] [address] [place] [address] Dr. Hattie Newsome PLT 169 103/ul Normal 150-450 [facility] Comment on above: Performed By: #### C BC #### [facility] [address] [place] [address] Dr. Hattie Newsome RBC 4.26 106/ul Critically low 4.70-6.10 [facility] Comment on above: Performed By: #### C BC #### [facility] [address] [place] [address] Dr. Hattie Newsome WBC 7.7 103/ul Normal 4.0-11.0 [facility] Comment on above: Performed By: #### C BC #### [facility] [address] [address] [address] Hattie Newsome LIPID PROFILEon 07-27-2022 CHOL-HDL RATIO NORM SEE BELOW Normal [facility] Comment on above: Result Comment: 3.3 - 4.4 LOW RISK 4.4 - 7.1 AVERAGE RISK 7.1 - 11.0 MODERATE RISK >11.0 HIGH RISK Performed By: #### L IPID #### [facility] [address] [address] [address] Hattie Newsome Cholesterol [Mass/Vol] 131 mg/dL Normal <=200 [facility] Comment on above: Performed By: #### L IPID #### [facility] [address] [address] [address] Hattie Newsome Cholesterol in HDL [Mass/Vol] 40 mg/dL Normal 40-60 [facility] Comment on above: Performed By: #### L IPID #### [facility] [address] [address] [address] Hattie Newsome Cholesterol in LDL [Mass/Vol] 64.6 mg/dL Normal [facility] Comment on above: Performed By: #### L IPID #### [facility] [address] [address] [address] Hattie Newsome Cholesterol.total/ Cholesterol in HDL [Mass ratio] 3.3 {ratio} Normal [facility] Comment on above: Performed By: #### L IPID #### [facility] [address] [address] [address] Hattie Newsome HDL NORMAL > or = 60 mg/dl - LO W CARDIOVASCULAR RISK <40 mg/dl - HIGH CARDIOVASCULAR RISK Normal [facility] Comment on above: Performed By: #### L IPID #### [facility] [address] [address] [address] Hattie Newsome LDL CALC NORMAL SEE BELOW Normal [facility] Comment on above: Result Comment: <100 mg/dl OPTIMAL 100 - 129 mg/dl NEAR OR ABOVE OPTIMAL 130 - 159 mg/dl BORDERLINE HIGH 160 - 189 mg/dl HIGH >190 mg/dl VERY HIGH Performed By: #### L IPID #### [facility] [address] [place] [address] Dr. Hattie Newsome Triglyceride [Mass/Vol] 132 mg/dL Normal <=150 [facility] Comment on above: Performed By: #### L IPID #### [facility] [address] [place] [address] Dr. Hattie Newsome VLDL CALC 26.4 mg/dL Normal [facility] Comment on above: Performed By: #### L IPID #### [facility] [address] [place] [address] Dr. Hattie Newsome PARATHYROID HORMONE- RELATED PEPTIDEon 07-15-2022 PTHrP (PTH-Related Peptide) <2.0 Normal [facility] Comment on above: Result Comment: This test was developed and its performance characteristics determined by [employer]. It has not been cleared or approved by the Food and Drug Administration. Reference Range: All Ages: <2.0 The PTHrP assay should not be used to exclude cancer or screen tumor patients for humoral hypercalcemia of malignancy (HHM). The results should always be assessed in conjunction with the patient's medical history, clinical examination, and other findings. If test results are clinically discordant, please contact the laboratory. Performed By: #### P THP #### [facility] [address] [place] [address] Dr. Hattie Newsome CBC AUTO DIFFon 07-07-2022 BASO # 0.1 103/ul Normal 0.0-0.1 [facility] Comment on above: Performed By: #### U BLANCA, CMP, MG #### [facility] [address] [place] [address] Dr. Hattie Newsome Basophils/100 WBC (Bld) 0.9 % Normal 0.2-2.0 [facility] Comment on above: Performed By: #### U BLANCA, CMP, MG #### [facility] [address] [place] [address] Dr. Hattie Newsome EO # 0.2 103/ul Normal 0.0-0.7 [facility] Comment on above: Performed By: #### U BLANCA, CMP, MG #### [facility] [address] [address] [address] Hattie Newsome Eosinophils/100 WBC (Bld) 3.4 % Normal 0.9-7.0 [facility] Comment on above: Performed By: #### U BLANCA, CMP, MG #### [facility] [address] [place] [address] Dr. Hattie Newsome Erythrocyte distribution width (RBC) [Ratio] 14.5 % Normal 11.0-15.0 [facility] Comment on above: Performed By: #### U BLANCA, CMP, MG #### [facility] [address] [place] [address] Dr. Hattie Newsome Hematocrit (Bld) [Volume fraction] 40.1 % Critically low 42.0-54.0 [facility] Comment on above: Performed By: #### U BLANCA, CMP, MG #### [facility] [address] [place] [address] Dr. Hattie Newsome Hemoglobin (Bld) [Mass/Vol] 13.6 g/dL Critically low 14.0-18.0 [facility] Comment on above: Performed By: #### U BLANCA, CMP, MG #### [facility] [address] [place] [address] Dr. Hattie Newsome IG # 0.04 10e3/ul Critically high 0.00-0.03 [facility] Comment on above: Performed By: #### U BLANCA, CMP, MG #### [facility] [address] [place] [address] Dr. Hattie Newsome IG % 0.6 % Critically high 0.0-0.5 [facility] Comment on above: Performed By: #### U BLANCA, CMP, MG #### [facility] [address] [place] [address] Dr. Hattie Newsome LYMPH # 0.9 103/ul Critically low 1.2-3.8 [facility] Comment on above: Performed By: #### U BLANCA, CMP, MG #### [facility] [address] [place] [address] Dr. Hattie Newsome Lymphocytes/100 WBC (Bld) 13.1 % Critically low 20.5-60.0 [facility] Comment on above: Performed By: #### U BLANCA, CMP, MG #### [facility] [address] [place] [address] Dr. Hattie Newsome MANUAL DIFF REQ NO Normal [facility] Comment on above: Performed By: #### U BLANCA, CMP, MG #### [facility] [address] [place] [address] Dr. Hattie Newsome MCH (RBC) [Entitic mass] 30.9 pg Normal 25.9-34.0 [facility] Comment on above: Performed By: #### U BLANCA, CMP, MG #### [facility] [address] [place] [address] Dr. Hattie Newsome MCHC (RBC) [Mass/Vol] 33.9 g/dL Normal 29.9-35.2 [facility] Comment on above: Performed By: #### U BLANCA, CMP, MG #### [facility] [address] [place] [address] Dr. Hattie Newsome MCV (RBC) [Entitic vol] 91.1 fL Normal 80.0-94.0 [facility] Comment on above: Performed By: #### U BLANCA, CMP, MG #### [facility] [address] [place] [address] Dr. Hattie Newsome MONO # 0.3 103/ul Normal 0.3-0.8 [facility] Comment on above: Performed By: #### U BLANCA, CMP, MG #### [facility] [address] [place] [address] Dr. Hattie Newsome Monocytes/100 WBC (Bld) 5.1 % Normal 1.7-12.0 [facility] Comment on above: Performed By: #### U BLANCA, CMP, MG #### [facility] [address] [place] [address] Dr. Hattie Newsome NEUT # 5.0 103/ul Normal 1.4-6.5 [facility] Comment on above: Performed By: #### U BLANCA, CMP, MG #### [facility] [address] [address] [address] Hattie Newsome Neutrophils/100 WBC (Bld) 76.9 % Critically high 43.0-75.0 [facility] Comment on above: Performed By: #### U BLANCA, CMP, MG #### [facility] [address] [address] [address] Hattie Newsome Platelet mean volume (Bld) [Entitic vol] 9.0 fL Critically low 9.5-13.5 [facility] Comment on above: Performed By: #### U BLANCA, CMP, MG #### [facility] [address] [address] [address] Hattie Newsome PLT 160 103/ul Normal 150-450 [facility] Comment on above: Performed By: #### U BLANCA, CMP, MG #### [facility] [address] [place] [address] Dr. Hattie Newsome RBC 4.40 106/ul Critically low 4.70-6.10 [facility] Comment on above: Performed By: #### U BLANCA, CMP, MG #### [facility] [address] [address] [address] Hattie Newsmoe WBC 6.5 103/ul Normal 4.0-11.0 [facility] Comment on above: Performed By: #### U BLANCA, CMP, MG #### [facility] [address] [place] [address] Dr. Hattie Newsome MAGNESIUMon 07-07-2022 Magnesium [Mass/Vol] 1.8 mg/dL Normal 1.8-2.4 [facility] Comment on above: Performed By: #### U BLANCA, CMP, MG #### [facility] [address] [address] [address] Hattie Newsome PROF 14(COMP METB)on 022 Albumin [Mass/Vol] 3.9 g/dL Normal 3.4-5.0 [facility] Comment on above: Performed By: #### U BLANCA, CMP, MG #### [facility] [address] [place] [address] Dr. Hattie Newsome Albumin/Globulin [Mass ratio] 1.0 {ratio} Normal [facility] Comment on above: Performed By: #### U BLANCA, CMP, MG #### [facility] [address] [address] [address] Hattie Newsome ALP [Catalytic activity/Vol] 136 U/L Critically high 46-116 [facility] Comment on above: Performed By: #### U BLANCA, CMP, MG #### [facility] [address] [address] [address] Hattie Newsome ALT [Catalytic activity/Vol] 122 U/L Critically high 16-63 [facility] Comment on above: Performed By: #### U BLANCA, CMP, MG #### [facility] [address] [place] [address] Dr. Hattie Newsome Anion gap [Moles/Vol] 12.4 mmol/L Normal [facility] Comment on above: Performed By: #### U BLANCA, CMP, MG #### [facility] [address] [address] [address] Hattie Newsome AST [Catalytic activity/Vol] 72 U/L Critically high 15-37 [facility] Comment on above: Performed By: #### U BLANCA, CMP, MG #### [facility] [address] [place] [address] Dr. Hattie Newsome Bilirubin [Mass/Vol] 0.5 mg/dL Normal 0.2-1.0 [facility] Comment on above: Performed By: #### U BLANCA, CMP, MG #### [facility] [address] [address] [address] Hattie Newsome Calcium [Mass/Vol] 9.1 mg/dL Normal 8.5-10.1 [facility] Comment on above: Performed By: #### U BLANCA, CMP, MG #### [facility] [address] [place] [address] Dr. Hattie Newsome Chloride [Moles/Vol] 106 mmol/L Normal 98-107 [facility] Comment on above: Performed By: #### U BLANCA, CMP, MG #### [facility] [address] [place] [address] Dr. Hattie Newsome CO2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 *Final Report* * * DATE OF EXAM: Feb 08 2022 4:45PM [facility] 0280 - MRI 3D POST PROCESSING / PROCEDURE REASON: Cognitive impairment, mild, so stated * * * * Physician Interpretation * * * * EXAMINATION: MRI BRAIN WO IVCON, MRI 3D POST PROCESSING CLINICAL HISTORY: TECHNIQUE: Axial JESSICA FLAIR, JESSICA T2, diffusion and susceptibility weighted imaging without contrast, using the ADNI dementia protocol and 3-D post-processing using the NeuroQuant software at an independent workstation with concurrent physician supervision and images were created, reviewed and archived. MQ: [id number] COMPARISON: None RESULT: QUALITATIVE: Acute Intracranial Process: None. Chronic Intracranial Process: None. Age related white matter changes (ARWMC) rating: White matter lesions: 1 Basal ganglia lesions: 0 Prior intracranial hemorrhage: Parenchymal microhemorrhages: 0 Other (siderosis/macrohemorr hages (>10mm): Not Applicable Amyloid Related Imaging Abnormalities: ARIA-E: N/A ARIA-H Microhemorrhage: N/A ARIA-H Siderosis: N/A Qualitative brain and hippocampal volume loss for age: Cortex: Severe and generalized White Matter: Severe and generalized Hippocampi: Mild and Symmetric Ventricles: Commensurate with volume loss. Brain Parenchymal Signal and Morphology: The brain parenchyma is otherwise within normal limits of signal and morphology. There is no evidence of an intracranial mass or extraaxial fluid collection. Other Significant Findings: None. QUANTITATIVE: Exam Quality: Good for volumetric analysis. Segmentation: Accurate segmentation by visual inspection Quantitative Data: Total Hippocampal Volume: Percentile for Age: 54 Asymmetry Index: -2.67 Inferior Lateral Vent Volume: Percentile for age: 81 Asymmetry Index: 25.40 Superior Lateral Vent Volume: Percentile for age: 64 Asymmetry Index: 2.88 Temporal Lobe Volume: Temporal Lobe Percentile for Age: 8 Temporal Lobe Asymmetry Index: -4.38 Frontal Lobe Volume: Frontal Lobe Percentile for Age: 20 Frontal Lobe Asymmetry Index: -6.50 Parietal Lobe Volume: Parietal Lobe Percentile for Age:42 Occipital Lobe Volume: Occipital Lobe Percentile for Age: 42 Whole Brain Volume Brain Percentile for Age: 10 Concordance between qualitative and quantitative hippocampal volume assessment: Concordant Change in brain volumes: No previous volumetric study for comparison Brain Volume Change: N/A Hippocampal Volume Change: N/A Superior Lateral Ventricle Volume Change: N/A Inferior Lateral Ventricle Volume Change: N/A Mean hippocampal volume loss among normal elderly: 0.7% per year, (-0.3 to 1.7; Roddy 2008; also Tomy 2010). IMPRESSION: * No evidence of an acute intracranial process or intracranial mass. * Severe generalized volume loss. * Hippocampal volumes at the 54th percentile when compared to age matched normal controls by quantitative analysis. * Mild white matter disease which is nonspecific but likely reflective of chronic microvascular ischemia. * No evidence of parenchymal microhemorrhages by MRI. REFERENCES: White Matter Lesions: 0 = No lesions, including symmetrical, well-defined caps or bands 1 = Focal Lesions 2 = Beginning of [place] 3 = Diffuse Involvement of Entire Region Basal Ganglia Lesions: 0 = No Lesions 1 = 1 Focal Lesion (>5mm) 2 = >1 Focal Lesion (>5mm) 3 = Confluent Lesions Tomy Nance et al. The clinical use of structural MRI in Alzheimer disease. Nature Reviews Neurology 6;67 (2010). Roddy et al. Validation of a fully automated 3D hippocampal segmentation method using subjects with Alzheimer's disease mild cognitive impairment, and elderly controls. Neuroimage 43;59 (2008). Duc et al. A New Rating Scale for Age-Related White Matter Changes Applicable to MRI and CT. Stroke. 32:1318 (2001). * Asymmetry index defined as difference between left and right volumes divided by mean or [(L-R/Mean) x 100] (%). Age-matched reference charts measure total hippocampal volume (% of intracranial volume). See results from the analysis charts for details. [employer] Miller: TERRENCE Transcribe Date/Time: Feb 08 2022 4:54P Dictated by : TINO AUGUSTE MD This examination was interpreted and the report reviewed and electronically signed by: TINO AUGUSTE MD on Feb 08 2022 5:41PM EST [id number] Normal [facility] MRI BRAIN WO IVCONon 022 MRI BRAIN WO IVCON * * *Final Report* * * DATE OF EXAM: Feb 08 2022 4:45PM [facility] 0294 - MRI BRAIN WO IVCON / PROCEDURE REASON: multiple diagnoses * * * * Physician Interpretation * * * * EXAMINATION: MRI BRAIN WO IVCON, MRI 3D POST PROCESSING CLINICAL HISTORY: TECHNIQUE: Axial JESSICA FLAIR, JESSICA T2, diffusion and susceptibility weighted imaging without contrast, using the ADNI dementia protocol and 3-D post-processing using the NeuroQuant software at an independent workstation with concurrent physician supervision and images were created, reviewed and archived. MQ: [id number] COMPARISON: None RESULT: QUALITATIVE: Acute Intracranial Process: None. Chronic Intracranial Process: None. Age related white matter changes (ARWMC) rating: White matter lesions: 1 Basal ganglia lesions: 0 Prior intracranial hemorrhage: Parenchymal microhemorrhages: 0 Other (siderosis/macrohemorr hages (>10mm): Not Applicable Amyloid Related Imaging Abnormalities: ARIA-E: N/A ARIA-H Microhemorrhage: N/A ARIA-H Siderosis: N/A Qualitative brain and hippocampal volume loss for age: Cortex: Severe and generalized White Matter: Severe and generalized Hippocampi: Mild and Symmetric Ventricles: Commensurate with volume loss. Brain Parenchymal Signal and Morphology: The brain parenchyma is otherwise within normal limits of signal and morphology. There is no evidence of an intracranial mass or extraaxial fluid collection. Other Significant Findings: None. QUANTITATIVE: Exam Quality: Good for volumetric analysis. Segmentation: Accurate segmentation by visual inspection Quantitative Data: Total Hippocampal Volume: Percentile for Age: 54 Asymmetry Index: -2.67 Inferior Lateral Vent Volume: Percentile for age: 81 Asymmetry Index: 25.40 Superior Lateral Vent Volume: Percentile for age: 64 Asymmetry Index: 2.88 Temporal Lobe Volume: Temporal Lobe Percentile for Age: 8 Temporal Lobe Asymmetry Index: -4.38 Frontal Lobe Volume: Frontal Lobe Percentile for Age: 20 Frontal Lobe Asymmetry Index: -6.50 Parietal Lobe Volume: Parietal Lobe Percentile for Age:42 Occipital Lobe Volume: Occipital Lobe Percentile for Age: 42 Whole Brain Volume Brain Percentile for Age: 10 Concordance between qualitative and quantitative hippocampal volume assessment: Concordant Change in brain volumes: No previous volumetric study for comparison Brain Volume Change: N/A Hippocampal Volume Change: N/A Superior Lateral Ventricle Volume Change: N/A Inferior Lateral Ventricle Volume Change: N/A Mean hippocampal volume loss among normal elderly: 0.7% per year, (-0.3 to 1.7; Roddy 2008; also Tomy 2010). IMPRESSION: * No evidence of an acute intracranial process or intracranial mass. * Severe generalized volume loss. * Hippocampal volumes at the 54th percentile when compared to age matched normal controls by quantitative analysis. * Mild white matter disease which is nonspecific but likely reflective of chronic microvascular ischemia. * No evidence of parenchymal microhemorrhages by MRI. REFERENCES: White Matter Lesions: 0 = No lesions, including symmetrical, well-defined caps or bands 1 = Focal Lesions 2 = Beginning of [place] 3 = Diffuse Involvement of Entire Region Basal Ganglia Lesions: 0 = No Lesions 1 = 1 Focal Lesion (>5mm) 2 = >1 Focal Lesion (>5mm) 3 = Confluent Lesions Tomy Nance et al. The clinical use of structural MRI in Alzheimer disease. Nature Reviews Neurology 6;67 (2010). Roddy et al. Validation of a fully automated 3D hippocampal segmentation method using subjects with Alzheimer's disease mild cognitive impairment, and elderly controls. Neuroimage 43;59 (2008). Duc et al. A New Rating Scale for Age-Related White Matter Changes Applicable to MRI and CT. Stroke. 32:1318 (2001). * Asymmetry index defined as difference between left and right volumes divided by mean or [(L-R/Mean) x 100] (%). Age-matched reference charts measure total hippocampal volume (% of intracranial volume). See results from the analysis charts for details. [employer] Miller: PSCB Transcribe Date/Time: Feb 08 2022 4:54P Dictated by : TINO AUGUSTE MD This examination was interpreted and the report reviewed and electronically signed by: TINO AUGUSTE MD on Feb 08 2022 5:41PM EST [id number] Normal [facility] Panel Informationon 02-08 [facility] CNOVon 12-22-2021 CNOV Office Visit (NEADFV ) SAMIR CASTILLO ([id number]) 1955 M Date Time Provider Department 12/22/21 9:00 AM JESSIE LAY During your visit today, we recorded the following information about you: Pulse Blood pressure Weight Height 59/minute 153/70 87.7 kg 1.651 m Jessie Lay MD 12/22/2021 10:51 AM Signed [facility] New Patient Evaluation Consulting Provider: SELF Individuals who were included in, or assisted with the encounter were: ? Samir Castillo ? Jessie Lay MD Chief Complaint/Issues: Samir Castillo is a 66 year old male seen in the [facility] for: 1. Memory loss. HPI: December 22, 2021 The patient is having problem with his memory. He started having issues about few years. Problems with judgment: Yes. Reduced interest in hobbies/activities: Yes, definitely Repeats questions, stories, or statements: No Trouble recalling people's names: Yes, getting worse Trouble learning how to use a tool or appliance: Yes Forgetting the correct month or year: yes Difficulty handling financial affairs (bill-paying, taxes): he is not doing any fiances, because he feels that he is not feel he is able to do it. Difficulty remembering appointments: Yes Getting lost while driving: He reports getting lost in a familiar places but not often. Difficulty with Cooking or using the oven/kitchen appliances: No, but he does not cook. Difficulty Managing own medication: yes, his daughter manages his medication Memory: notices problems with both short term and ocean transportation intermediary memory Language: yes, word finding problems. Knows what he wants to say and cannot find it Change in personality: yes, more isolated. Admits to sadness, depression, and anxiety. Loss of empathy: no Socially inappropriate behavior: no Perseverative behaviors: No Change in eating habits: Yes, no loss of weight. Physical changes: no Depressive symptoms: yes, Apathy:no Hallucinations/Delusio ns: no Sleep: No, but frequently waking. Prior work-up: none Prior treatments: none The patient is having daily headache, that is located a the front right side, and he feels tingling in the same area. He reports no light sensitivity or but he noise sensitivity, but he reports some dizziness with the headaches at times. General Examination: BP 153/70 Pulse (!) 59 Ht 165.1 cm (5' 5 ) Wt 87.7 kg (193 lb 4.8 oz) BMI 32.17 kg/m? General Exam Neurological Exam Mental Status Alert, fully oriented, attentive, with normal cognition, memory, speech and affect. Cranial Nerves Visual wilson intact. Pupils reactive. Extraocular movements conjugate and full. No ptosis. No nystagmus. Facial sensation intact. Face symmetric and strong. Palate and tongue normal. XI normal. Motor Examination and Coordination Motor examination with normal bulk, strength and tone. No drift. Normal rapid alternating movements and coordination. No adventitious movements or significant tremor. Reflexes Deep tendon reflexes graded by MRC Deep Tendon Reflexes Right Left Biceps 2+ 2+ Triceps 2+ 2+ Brachioradialis 2+ 2+ Patellar 2+ 2+ Achilles 2+ 2+ Plantar Downgoing Downgoing Sensation Sensation intact to light touch, pinprick, proprioception and vibration. Gait Casual gait normal. Assessment AND Plan 12/22/2021 - General Neurology, Samer Lay, MD ASSESSMENT 66-year-old with memory decline, today on neuro-exam no focal findings were found. His MOCA score was 16/30. Dissuces with family possible etiologies and recommended the following. Dx: dementia on the ddx depression PLAN _MRI brain with volumetric. _Labs:TSH, B12 and RPR. _Neuropsych eval. _Return to clinic once done with work up. No diagnosis found. No follow-ups on file. Data Review Objective Current Outpatient Medications Medication Sig - albuterol HFA (PROVENTIL HFA, VENTOLIN HFA) 90 mcg/actuation inhaler albuterol sulfate HFA 90 mcg/actuation aerosol inhaler INHALE 1 PUFF BY MOUTH EVERY 4 HOURS NEEDED - albuterol HFA (PROVENTIL HFA, VENTOLIN HFA) 90 mcg/actuation inhaler INHALE 1 PUFF BY MOUTH EVERY 4 HOURS NEEDED - amLODIPine (NORVASC) 5 mg tablet amlodipine 5 mg tablet TAKE 1 TABLET BY MOUTH EVERY DAY - aspirin, enteric coated (ASPIRIN, ENTERIC COATED) 81 mg EC tablet q 24 HR. - atorvastatin (LIPITOR) 80 mg tablet atorvastatin 80 mg tablet TAKE 1 TABLET BY MOUTH EVERY DAY - buPROPion XL (WELLBUTRIN XL) 300 mg 24 hr tablet bupropion HCl XL 300 mg 24 hr tablet, extended release TAKE 1 TABLET BY MOUTH EVERY DAY IN THE MORNING - buPROPion XL (WELLBUTRIN XL) 150 mg 24 hr tablet TAKE 1 TABLET BY MOUTH EVERY DAY IN THE MORNING - busPIRone (BUSPAR) 15 mg tablet buspirone 15 mg tablet TAKE 1 TABLET BY MOUTH (more content not included)... [facility] 12-21-2021 ITZEL Telephone (NIQ) SAMIR CASTILLO ([id number]) 1955 M Date Time Provider Department 12/21/21 UNKNOWN NIQ During your visit today, we recorded the following information about you: Luna Sandoval 12/21/2021 11:49 AM Signed [facility] NI referral from Dr. Milo Hurtado, [place], [place] DX: increasing amnesia not explained as part of depression and anxiety RFV: Evaluate and treat Scheduling: Patient accepted consult with Dr. Jessie Lay on 12/22/2021 External records will be uploaded to chart in Scanned Docs. Allergies As of Date: 12/21/2021 (Not on File) Date Reviewed: Never Reviewed Reason for Visit: Received Outside Medical Records [[id number]] Cmt: External referral to Brain Health Problem List As Of Date: 12/21/2021 (None) Encounter Status:Closed by LUNA SANDOVAL on 12/21/21 Normal [facility] BASIC METABOLIC PANELon - Calcium [Mass/Vol] 9.2 mg/dL Normal 8.6-10.[address] [facility] Comment on above: Order Comment: No: D o not add to previous draw Performed By: #### 0 0071, [id number] #### [facility] [address] [place] [address], [place] Chloride [Moles/Vol] 108 mmol/L High 98-[address] [facility] Comment on above: Order Comment: No: D o not add to previous draw Performed By: #### 0 0071, [id number] #### [facility] [address] [place] [address], [place] CO2 [Moles/Vol] 26 mmol/L Normal 21-31 [facility] Comment on above: Order Comment: No: D o not add to previous draw Performed By: #### 0 0071, [id number] #### [facility] [address] [place] [address], [place] Creatinine [Mass/Vol] 1.64 mg/dL High 0.70-1.30 [facility] Comment on above: Order Comment: No: D o not add to previous draw Performed By: #### 0 0071, [id number] #### [facility] [address] [place] [address], [place] GFR/1.73 sq M predicted among blacks MDRD (S/P/Bld) [Vol rate/Area] 51 ml/min/1.73sq m Abnormal >60 [facility] Comment on above: Order Comment: No: D o not add to previous draw Performed By: #### 0 0071, [id number] #### [facility] [address] [place] [address], [place] GFR/1.73 sq M predicted among non-blacks MDRD (S/P/Bld) [Vol rate/Area] 42 ml/min/1.73sq m Abnormal >60 [facility] Comment on above: Order Comment: No: D o not add to previous draw Performed By: #### 0 0071, [id number] #### [facility] [address] [place] [address], [place] Glucose [Mass/Vol] 100 mg/dL Normal 70-100 [facility] Comment on above: Order Comment: No: D o not add to previous draw Performed By: #### 0 0071, [id number] #### [facility] [address] [place] [address], [place] Potassium [Moles/Vol] 4.5 mmol/L Normal 3.5-5.1 [facility] Comment on above: Order Comment: No: D o not add to previous draw Performed By: #### 0 0071, [id number] #### [facility] [address] [place] [address], [place] Sodium [Moles/Vol] 139 mmol/L Normal 136-[address] [facility] Comment on above: Order Comment: No: D o not add to previous draw Performed By: #### 0 0071, [id number] #### [facility] [address] [facility] [address] Urea nitrogen [Mass/Vol] 15 mg/dL Normal 7-25 [facility] Comment on above: Order Comment: No: D o not add to previous draw Performed By: #### 0 0071, [id number] #### [facility] [address] [facility] [place] [address], [facility] CBC W/DIFFon 10-08-2019 ABS BASOPHILS 0.1 10*3/uL Normal 0.0-0.2 The [facility] Comment on above: Order Comment: No: D o not add to previous draw Performed By: #### 0 0071, [id number] #### [facility] [address] [facility]. [address] ABS IMM GRANS 0.1 10*3/uL Normal 0.0-0.2 [facility] Comment on above: Order Comment: No: D o not add to previous draw Performed By: #### 0 0071, [id number] #### [facility] [address] [facility]. [address] ABS NEUTROPHILS 5.1 10*3/uL Normal 1.6-7.6 The [facility] Comment on above: Order Comment: No: D o not add to previous draw Performed By: #### 0 0071, [id number] #### [facility] [address] [facility]. [address] Basophils/100 WBC (Bld) 0.8 % Normal 0.0-1.0 [facility] Comment on above: Order Comment: No: D o not add to previous draw Performed By: #### 0 0071, [id number] #### [facility] [address] [place] [address], [facility] Eosinophils (Bld) [#/Vol] 0.3 10*3/uL Normal 0.0-0.5 [facility] Comment on above: Order Comment: No: D o not add to previous draw Performed By: #### 0 0071, [id number] #### [facility] [address] [place] [address], [facility] Eosinophils/100 WBC (Bld) 3.9 % Normal 0.0-6.0 [facility] Comment on above: Order Comment: No: D o not add to previous draw Performed By: #### 0 0071, [id number] #### [facility] [address] [place], [place] [address], [facility] Erythrocyte distribution width (RBC) [Ratio] 14.3 % Normal 11.5-15.0 [facility] Comment on above: Order Comment: No: D o not add to previous draw Performed By: #### 0 0071, 75729 #### [facility] [address] [place] [id number], [facility] Hematocrit (Bld) [Volume fraction] 39.0 % Normal 39.0-50.0 [facility] Comment on above: Order Comment: No: D o not add to previous draw Performed By: #### 0 70, 15352 #### [facility] [address] [place] [address], [facility] Hemoglobin (Bld) [Mass/Vol] 12.3 g/dL Low 13.0-17.0 [facility] Comment on above: Order Comment: No: D o not add to previous draw Performed By: #### 0 0071, [id number] #### [facility] [address] [place] [address], [facility] IMMATURE GRANS 0.8 % Normal 0.0-1.0 [facility] Comment on above: Order Comment: No: D o not add to previous draw Performed By: #### 0 007, 51852 #### [facility] [address] [place] [address], [facility] Lymphocytes (Bld) [#/Vol] 1.2 10*3/uL Normal 1.2-4.0 [facility] Comment on above: Order Comment: No: D o not add to previous draw Performed By: #### 0 0071, 44662 #### [facility] [address] [facility] [place] [address], [facility] Lymphocytes/100 WBC (Bld) 16.1 % Low 20.0-45.0 [facility] Comment on above: Order Comment: No: D o not add to previous draw Performed By: #### 0 0071, 39610 #### [facility] [address] [facility] [place] [address], [facility] MCH (RBC) [Entitic mass] 29.9 pg Normal 27.0-33.0 [facility] Comment on above: Order Comment: No: D o not add to previous draw Performed By: #### 0 0071, 91612 #### [facility] [address] [facility] [place] [address], [facility] MCHC (RBC) [Mass/Vol] 31.5 g/dL Low 32.0-35.0 [facility] Comment on above: Order Comment: No: D o not add to previous draw Performed By: #### 0 0071, 83243 #### [facility] [address] [facility] [place] [address], [facility] MCV (RBC) [Entitic vol] 94.9 fL Normal 82.0-98.0 [facility] Comment on above: Order Comment: No: D o not add to previous draw Performed By: #### 0 0071, 41980 #### [facility] [address] [facility] [place] [address], [facility] Monocytes (Bld) [#/Vol] 0.5 10*3/uL Normal 0.1-1.0 [facility] Comment on above: Order Comment: No: D o not add to previous draw Performed By: #### 0 0071, 01278 #### [facility] [address] [place] [address], [facility] MONOS 6.3 % Normal 5.0-12.0 [facility] Comment on above: Order Comment: No: D o not add to previous draw Performed By: #### 0 0071, 56929 #### [facility] [address] [place] [id number], [facility] Neutrophils/100 WBC (Bld) 72.1 % High 40.0-72.0 [facility] Comment on above: Order Comment: No: D o not add to previous draw Performed By: #### 0 0071, 16353 #### [facility] [address] [place] [address], [place] Nucleated RBC/100 WBC (Bld) [Ratio] 0 % Normal 0-0 [facility] Comment on above: Order Comment: No: D o not add to previous draw Performed By: #### 0 0071, 07758 #### [facility] [address] [place] [address], [facility] PLAT CNT 168 10*3/uL Normal 150-400 [facility] Comment on above: Order Comment: No: D o not add to previous draw Performed By: #### 0 0071, 26626 #### [facility] [address] [facility]. [place] [id number], [facility] RBC (Bld) [#/Vol] 4.11 10*6/uL Low 4.20-5.70 [facility] Comment on above: Order Comment: No: D o not add to previous draw Performed By: #### 0 0071, 78209 #### [facility] [address] [place] [address], [place] WBC (Bld) [#/Vol] 7.13 10*3/uL Normal 4.00-10.60 [facility] Comment on above: Order Comment: No: D o not add to previous draw Performed By: #### 0 0071, 20958 #### [facility] [address] US ABDOMEN LIMITED 020 US ABDOMEN LIMITED [facility] Department of Radiology [address] [place] [address] ======== Patient Name: KEL CASTILLO : 1955 Sex: M Age: Race: White Pt. Location: [id number] Patient Status: I Ordered Date: 10/08/2019 9:30:00 AM Completed Date: 10/08/2019 10:00 AM Requesting Provider: ODALYS CUETO Attending Provider: DUKE RANGEL Report Copy To: Signs & Symptoms: Other History: See Comments Comments: Other, right groin to rule out hematoma and anuerysm Exam: US ABDOMEN LIMITED ======== US ABDOMEN LIMITED 10/08/2019 10:00 AM CLINICAL INDICATIONS: Other TECHNOLOGIST COMMENTS: s/p heart cath 2 days ago. bruising. Right groin to rule out hematoma and aneurysm QUESTION FOR THE RADIOLOGIST: Other, right groin to rule out hematoma and aneurysm TECHNIQUE: Limited abdominal ultrasound. COMPARISON: None is available. FINDINGS: There is no localized pocket of fluid collection at the area of clinical concern. However, there is diffuse soft tissue stranding and mild swelling possibly related to recent procedure. The visualized segment of the femoral vessels are unremarkable. IMPRESSION: At the area of clinical concern, there is no gross aneurysmal dilatation or localized pocket of fluid collection. Electronically signed: Brandy Wilson. Transcribed by: [email or web address], User Resident: BRANDY WILSON Electronically Signed by: BRANDY WILSON @ 10/08/2019 10:13 AM I personally read this/these film(s) with this resident Normal [facility] Comment on above: Order Comment: No: D o not add to previous draw BASIC METABOLIC PANELon 09-13 Calcium [Mass/Vol] 8.7 mg/dL Normal 8.6-10.[address] [facility] Comment on above: Order Comment: No: D o not add to previous draw Performed By: #### 0 0071, 48373 #### [facility] [address] [place] [address], [place] Chloride [Moles/Vol] 111 mmol/L High 98-107 [facility] Comment on above: Order Comment: No: D o not add to previous draw Performed By: #### 0 0071, 29746 #### [facility] [address] [place] [address], [place] CO2 [Moles/Vol] 28 mmol/L Normal 21-31 [facility] Comment on above: Order Comment: No: D o not add to previous draw Performed By: #### 0 0071, 01230 #### [facility] [address] [place] [address], [place] Creatinine [Mass/Vol] 1.59 mg/dL High 0.70-1.30 [facility] Comment on above: Order Comment: No: D o not add to previous draw Performed By: #### 0 0071, 48102 #### [facility] [address] [place] [address], [place] GFR/1.73 sq M predicted among blacks MDRD (S/P/Bld) [Vol rate/Area] 53 ml/min/1.73sq m Abnormal >60 [facility] Comment on above: Order Comment: No: D o not add to previous draw Performed By: #### 0 0071, 19444 #### [facility] [address] [place] [id number], [facility] GFR/1.73 sq M predicted among non-blacks MDRD (S/P/Bld) [Vol rate/Area] 44 ml/min/1.73sq m Abnormal >60 [facility] Comment on above: Order Comment: No: D o not add to previous draw Performed By: #### 0 0071, 80639 #### [facility] [address] [place] [address], [place] Glucose [Mass/Vol] 99 mg/dL Normal 70-100 [facility] Comment on above: Order Comment: No: D o not add to previous draw Performed By: #### 0 0071, 37165 #### [facility] [address] [place] [address], [place] Potassium [Moles/Vol] 4.2 mmol/L Normal 3.5-5.[address] [facility] Comment on above: Order Comment: No: D o not add to previous draw Performed By: #### 0 0071, 38511 #### [facility] [address] [place] [address], [place] Sodium [Moles/Vol] 142 mmol/L Normal 136-145 [facility] Comment on above: Order Comment: No: D o not add to previous draw Performed By: #### 0 0071, 46377 #### [facility] [address] [place] [address], [place] Urea nitrogen [Mass/Vol] 16 mg/dL Normal 7-25 [facility] Comment on above: Order Comment: No: D o not add to previous draw Performed By: #### 0 0071, 36408 #### [facility] [address] [place] [address], [facility] Cardiovascular Lab Reporton 10-07-2019 Cardiovascular Lab Report [facility] Patient Name: Jose [facility] Kel MR #: [id number] Department of Physician: Shaji Juarez M.D. Division of Service Date: 10/07/2019 Cardiology Birthdate: 1955 Adult Cardiovascular Room #: [id number] [facility] [address] [place] [address] Cardiovascular Laboratory Report FINAL IMPRESSIONS: 1. Severe 3-vessel [place] coronary artery disease. 2. A 2/3 bypass grafts patent; the radial artery graft to the posterior descending artery is occluded. 3. Severe, heavily calcific lesion of the right common femoral artery; this is a new angiographic finding. RECOMMENDATIONS: 1. Aggressive IV hydration given the risk for contrast induced nephropathy. 2. Repeat basic metabolic panel in 72 hours. 3. Aspirin 81 mg lifelong. 4. Aggressive cardiovascular risk factor modification. 5. Optimization of medical management; high intensity statin therapy, beta kelsy, plus or minus an angiotensin-converting enzyme inhibitor are indicated. 6. The patient may proceed to upcoming surgery with no further cardiovascular testing needed at this time; recommend strict heart rate and blood pressure control and avoidance of major fluid shifts. 7. Further investigations and management for peripheral arterial disease including segmental leg pressures, ankle-brachial indices and possible repeat lower extremity angiography. If he is found to have focal calcified common femoral artery disease, we will refer to vascular surgery for a probable surgical endarterectomy. 8. Follow up with Dr. Tolliver in the next 3 to 4 weeks. 9. Follow up with Dr. Hendrickson as scheduled. PROCEDURES: Limited femoral angiography, bilateral selective coronary angiography, saphenous vein graft angiography, angiography of the left internal mammary artery graft. METHODS: After risks, benefits, and alternatives were explained, written informed consent was obtained. The patient was prepped and draped in usual sterile fashion over both groins. Using 1% lidocaine solution, local infiltration anesthesia was achieved. Using a modified Seldinger technique and a micropuncture kit, access to the right common femoral artery was obtained on the anatomic and fluoroscopic landmarks. A 6-Georgian 11 cm sheath was inserted. Limited femoral arterial angiography was performed. Bilateral selective coronary angiography was performed using JL4 and JR4 catheters. Angiography of the saphenous vein graft and radial artery graft was performed using the JL4 and JR4. This was used to cannulate the left subclavian. It was exchanged out for an IM catheter. Angiography of internal mammary artery graft was performed. After reviewing the images, it was elected to conclude the procedure. All catheters were removed. The femoral sheath was removed and manual pressure was held for hemostasis. Overall, the patient tolerated the procedure well. Of note is that the patient's distal pulses were palpable pre and post procedure. FINDINGS: Hemodynamics. AO 129/62. LEFT VENTRICULOGRAPHY: This was not performed. CORONARY ARTERIES: Left main coronary artery. This arises from the left coronary cusp. It is occluded in the distal portion of the vessel prior to the bifurcation into the left anterior descending and left circumflex coronary arteries. There is heavy calcification. Left anterior descending coronary artery. This is occluded. Distal filling is seen via a patent left internal mammary artery graft to the left anterior descending. Retrograde filling is seen into the diagonal branches with dense septal to septal collaterals supplying the occluded right coronary artery. Left circumflex coronary artery. This is occluded at its ostium. Distal filling is seen via a patent saphenous vein graft to the 3rd obtuse marginal. There is excellent retrograde flow into the main left circumflex as well as the obtuse marginal branches. It appears to be a codominant vessel supplying posterolateral branches. Right coronary artery. This is a small codominant vessel supplying the posterior descending artery. It shows a 95% stenosis in the proximal to midportion of the vessel and is subtotally occluded distally. It is less than 2 mm in size. GRAFT ANGIOGRAPHY: Left internal mammary artery graft to the left anterior descending. This is widely patent. Saphenous vein graft to the obtuse marginal. This is widely patent. Radial artery graft to the posterior descending artery. This is stump occluded. Limited femoral angiography. This shows a 70% heavily calcific irregular stenosis in the midportion of the common femoral artery. The sheath appears to be reducing flow into the superficial femoral and profunda femoral arteries. Compared to prior angiography this is a significant worsening in this area. INDICATIONS: Abnormal stress test, preoperative evaluation. Electronically Signed by: Sarah Tolliver M.D. 10/14/2019 05:30 P Sarah Tolliver M.D. Date Dict: 10/07/2019/09:10 Man/Sarah Tolliver M.D. Date Trans: 10/07/2019 02:55 P/mmo [id number] cc: Priyank Hendrickson M.D. [address] [place] [address] Nayana Bledsoe D. [address] [place] [address] Normal [facility] MAGNESIUM BLOODon 10-07-2019 Magnesium [Mass/Vol] 2.1 mg/dL Normal 1.9-2.7 [facility] Comment on above: Order Comment: No: D o not add to previous draw Performed By: #### 0 0071, 16253 #### [facility] [address] [place] [address], [facility] BASIC METABOLIC PANELon 09-13 Calcium [Mass/Vol] 8.7 mg/dL Normal 8.6-10.[address] [facility] Comment on above: Order Comment: No: D o not add to previous draw Performed By: #### 0 0071, 57841 #### [facility] [address] [place] [address], [place] Chloride [Moles/Vol] 110 mmol/L High 98-107 [facility] Comment on above: Order Comment: No: D o not add to previous draw Performed By: #### 0 0071, 30051 #### [facility] [address] [place] [address], [place] CO2 [Moles/Vol] 26 mmol/L Normal 21-31 [facility] Comment on above: Order Comment: No: D o not add to previous draw Performed By: #### 0 0071, 79513 #### [facility] [address] [place] [address], [place] Creatinine [Mass/Vol] 1.92 mg/dL High 0.70-1.30 [facility] Comment on above: Order Comment: No: D o not add to previous draw Performed By: #### 0 0071, 92773 #### [facility] [address] [place] [address], [place] GFR/1.73 sq M predicted among blacks MDRD (S/P/Bld) [Vol rate/Area] 43 ml/min/1.73sq m Abnormal >60 [facility] Comment on above: Order Comment: No: D o not add to previous draw Performed By: #### 0 0071, 69453 #### [facility] [address] [place] [address], [place] GFR/1.73 sq M predicted among non-blacks MDRD (S/P/Bld) [Vol rate/Area] 35 ml/min/1.73sq m Abnormal >60 [facility] Comment on above: Order Comment: No: D o not add to previous draw Performed By: #### 0 0071, 34061 #### [facility] [address] [place] [address], [place] Glucose [Mass/Vol] 96 mg/dL Normal 70-100 [facility] Comment on above: Order Comment: No: D o not add to previous draw Performed By: #### 0 0071, 29939 #### [facility] [address] [place] [address], [place] Potassium [Moles/Vol] 4.4 mmol/L Normal 3.5-5.1 [facility] Comment on above: Order Comment: No: D o not add to previous draw Performed By: #### 0 0071, 35078 #### [facility] [address] [place] [address], [place] Sodium [Moles/Vol] 140 mmol/L Normal 136-145 [facility] Comment on above: Order Comment: No: D o not add to previous draw Performed By: #### 0 0071, 65286 #### [facility] [address] [place] [address], [place] Urea nitrogen [Mass/Vol] 25 mg/dL Normal 7-25 [facility] Comment on above: Order Comment: No: D o not add to previous draw Performed By: #### 0 0071, 54196 #### [facility] [address] [place] [address], [place] Calcium [Mass/Vol] 8.8 mg/dL Normal 8.6-10.[address] [facility] Comment on above: Order Comment: No: D o not add to previous draw Performed By: #### 0 0071 #### [facility] [address] [place] [address], [place] Chloride [Moles/Vol] 111 mmol/L High 98-107 [facility] Comment on above: Order Comment: No: D o not add to previous draw Performed By: #### 0 0071 #### [facility] [address] [place] [address], [place] CO2 [Moles/Vol] 25 mmol/L Normal 21-31 [facility] Comment on above: Order Comment: No: D o not add to previous draw Performed By: #### 0 0071 #### [facility] [address] [place] [address], [place] Creatinine [Mass/Vol] 1.94 mg/dL High 0.70-1.30 [facility] Comment on above: Order Comment: No: D o not add to previous draw Performed By: #### 0 0071 #### [facility] [address] [place] [address], [place] GFR/1.73 sq M predicted among blacks MDRD (S/P/Bld) [Vol rate/Area] 42 ml/min/1.73sq m Abnormal >60 [facility] Comment on above: Order Comment: No: D o not add to previous draw Performed By: #### 0 0071 #### [facility] [address] [place] [address], [place] GFR/1.73 sq M predicted among non-blacks MDRD (S/P/Bld) [Vol rate/Area] 35 ml/min/1.73sq m Abnormal >60 [facility] Comment on above: Order Comment: No: D o not add to previous draw Performed By: #### 0 0071 #### [facility] [address] [place] [address], [facility] Glucose [Mass/Vol] 102 mg/dL High 70-100 [facility] Comment on above: Order Comment: No: D o not add to previous draw Performed By: #### 0 0071 #### [facility] [address] [place] [address], [facility] Potassium [Moles/Vol] 4.5 mmol/L Normal 3.5-5.1 [facility] Comment on above: Order Comment: No: D o not add to previous draw Performed By: #### 0 0071 #### [facility] [address] [place] [id number], [facility] Sodium [Moles/Vol] 140 mmol/L Normal 136-145 [facility] Comment on above: Order Comment: No: D o not add to previous draw Performed By: #### 0 0071 #### [facility] [address] [place] [id number], [facility] Urea nitrogen [Mass/Vol] 27 mg/dL High 7-25 [facility] Comment on above: Order Comment: No: D o not add to previous draw Performed By: #### 0 0071 #### [facility] [address] [place] [address], [facility] CBC W/DIFFon 10-06-2019 ABS BASOPHILS 0.1 10*3/uL Normal 0.0-0.2 [facility] Comment on above: Order Comment: No: D o not add to previous draw Performed By: #### 5 0103 #### [facility] [address] [place] [address], [facility] ABS IMM GRANS 0.1 10*3/uL Normal 0.0-0.2 [facility] Comment on above: Order Comment: No: D o not add to previous draw Performed By: #### 5 0103 #### [facility] [address] [place] [address], [facility] ABS NEUTROPHILS 4.2 10*3/uL Normal 1.6-7.6 [facility] Comment on above: Order Comment: No: D o not add to previous draw Performed By: #### 5 0103 #### [facility] [address] [place] [address], [facility] Basophils/100 WBC (Bld) 0.9 % Normal 0.0-1.0 [facility] Comment on above: Order Comment: No: D o not add to previous draw Performed By: #### 5 0103 #### [facility] [address] [place] [address], [place] Eosinophils (Bld) [#/Vol] 0.3 10*3/uL Normal 0.0-0.5 [facility] Comment on above: Order Comment: No: D o not add to previous draw Performed By: #### 5 0103 #### [facility] [address] [place] [address], [facility] Eosinophils/100 WBC (Bld) 4.8 % Normal 0.0-6.0 [facility] Comment on above: Order Comment: No: D o not add to previous draw Performed By: #### 5 0103 #### [facility] [address] [place] [address], [place] Erythrocyte distribution width (RBC) [Ratio] 14.3 % Normal 11.5-15.0 [facility] Comment on above: Order Comment: No: D o not add to previous draw Performed By: #### 5 0103 #### [facility] [address] [place] [address], [place] Hematocrit (Bld) [Volume fraction] 37.3 % Low 39.0-50.0 [facility] Comment on above: Order Comment: No: D o not add to previous draw Performed By: #### 5 0103 #### [facility] [address] [place] [id number], [facility] Hemoglobin (Bld) [Mass/Vol] 11.7 g/dL Low 13.0-17.0 [facility] Comment on above: Order Comment: No: D o not add to previous draw Performed By: #### 5 0103 #### [facility] [address] [place] [id number], [facility] IMMATURE GRANS 1.3 % High 0.0-1.0 [facility] Comment on above: Order Comment: No: D o not add to previous draw Performed By: #### 5 3 #### [facility] [address] [place] [id number], [facility] Lymphocytes (Bld) [#/Vol] 1.5 10*3/uL Normal 1.2-4.0 [facility] Comment on above: Order Comment: No: D o not add to previous draw Performed By: #### 5 0103 #### [facility] [address] [place] [address], [facility] Lymphocytes/100 WBC (Bld) 21.8 % Normal 20.0-45.0 [facility] Comment on above: Order Comment: No: D o not add to previous draw Performed By: #### 5 0103 #### [facility] [address] [place] [address], [facility] MCH (RBC) [Entitic mass] 29.5 pg Normal 27.0-33.0 [facility] Comment on above: Order Comment: No: D o not add to previous draw Performed By: #### 5 0103 #### [facility] [address] [place] [id number], [facility] MCHC (RBC) [Mass/Vol] 31.4 g/dL Low 32.0-35.0 [facility] Comment on above: Order Comment: No: D o not add to previous draw Performed By: #### 5 0103 #### [facility] [address] [facility] [place] [address], [facility] MCV (RBC) [Entitic vol] 94.0 fL Normal 82.0-98.0 [facility] Comment on above: Order Comment: No: D o not add to previous draw Performed By: #### 5 0103 #### [facility] [address] [place] [address], [facility] Monocytes (Bld) [#/Vol] 0.6 10*3/uL Normal 0.1-1.0 [facility] Comment on above: Order Comment: No: D o not add to previous draw Performed By: #### 5 0103 #### [facility] [address] [facility] [place] [address], [facility] MONOS 8.2 % Normal 5.0-12.0 [facility] Comment on above: Order Comment: No: D o not add to previous draw Performed By: #### 5 0103 #### [facility] [address] [place] [address], [facility] Neutrophils/100 WBC (Bld) 63.0 % Normal 40.0-72.0 [facility] Comment on above: Order Comment: No: D o not add to previous draw Performed By: #### 5 0103 #### [facility] [address] [place] [address], [facility] Nucleated RBC/100 WBC (Bld) [Ratio] 0 % Normal 0-0 [facility] Comment on above: Order Comment: No: D o not add to previous draw Performed By: #### 5 0103 #### [facility] [address] [place] [address], [facility] PLAT CNT 162 10*3/uL Normal 150-400 The [facility] Comment on above: Order Comment: No: D o not add to previous draw Performed By: #### 5 0103 #### [facility] [address] [place] [address], [facility] RBC (Bld) [#/Vol] 3.97 10*6/uL Low 4.20-5.70 [facility] Comment on above: Order Comment: No: D o not add to previous draw Performed By: #### 5 0103 #### [facility] [address] [place] [address], [place] WBC (Bld) [#/Vol] 6.69 10*3/uL Normal 4.00-10.60 [facility] Comment on above: Order Comment: No: D o not add to previous draw Performed By: #### 5 3 #### [facility] [address] [place] [address], [facility] BASIC METABOLIC PANELon 09-13 Calcium [Mass/Vol] 9.7 mg/dL Normal 8.6-10.[address] [facility] Comment on above: Order Comment: No: D o not add to previous draw Performed By: #### 0 0071, [id number] #### [facility] [address] [place] [address], [place] Chloride [Moles/Vol] 105 mmol/L Normal 98-107 [facility] Comment on above: Order Comment: No: D o not add to previous draw Performed By: #### 0 0071, 81369 #### [facility] [address] [place] [address], [place] CO2 [Moles/Vol] 25 mmol/L Normal 21-31 [facility] Comment on above: Order Comment: No: D o not add to previous draw Performed By: #### 0 0071, 68711 #### [facility] [address] [place] [address], [place] Creatinine [Mass/Vol] 2.13 mg/dL High 0.70-1.30 [facility] Comment on above: Order Comment: No: D o not add to previous draw Performed By: #### 0 0071, 69538 #### [facility] [address] [place] [address], [place] GFR/1.73 sq M predicted among blacks MDRD (S/P/Bld) [Vol rate/Area] 38 ml/min/1.73sq m Abnormal >60 [facility] Comment on above: Order Comment: No: D o not add to previous draw Performed By: #### 0 0071, 63756 #### [facility] [address] [place] [address], [place] GFR/1.73 sq M predicted among non-blacks MDRD (S/P/Bld) [Vol rate/Area] 31 ml/min/1.73sq m Abnormal >60 [facility] Comment on above: Order Comment: No: D o not add to previous draw Performed By: #### 0 0071, 17118 #### [facility] [address] [place] [address], [place] Glucose [Mass/Vol] 114 mg/dL High 70-100 The [facility] Comment on above: Order Comment: No: D o not add to previous draw Performed By: #### 0 0071, 85496 #### [facility] [address] [place] [address], [place] Potassium [Moles/Vol] 4.7 mmol/L Normal 3.5-5.1 [facility] Comment on above: Order Comment: No: D o not add to previous draw Performed By: #### 0 0071, 17454 #### [facility] [address] [place] [address], [place] Sodium [Moles/Vol] 140 mmol/L Normal 136-[address] [facility] Comment on above: Order Comment: No: D o not add to previous draw Performed By: #### 0 0071, 72115 #### [facility] [address] Urea nitrogen [Mass/Vol] 32 mg/dL High 7-25 [facility] Comment on above: Order Comment: No: D o not add to previous draw Performed By: #### 0 0071, 92334 #### [facility] [address] [place] [address], [facility] CBC W/DIFFon 10-05-2019 ABS BASOPHILS 0.1 10*3/uL Normal 0.0-0.2 [facility] Comment on above: Performed By: #### 5 0103 #### [facility] [address] ABS IMM GRANS 0.1 10*3/uL Normal 0.0-0.2 [facility] Comment on above: Performed By: #### 5 0103 #### [facility] [address] ABS NEUTROPHILS 6.2 10*3/uL Normal 1.6-7.6 The [facility] Comment on above: Performed By: #### 5 0103 #### [facility] [address] [place] [address], [facility] Basophils/100 WBC (Bld) 0.7 % Normal 0.0-1.0 [facility] Comment on above: Performed By: #### 5 3 #### [facility] [address] [place] [address], [facility] Eosinophils (Bld) [#/Vol] 0.3 10*3/uL Normal 0.0-0.5 [facility] Comment on above: Performed By: #### 5 102 #### [facility] [address] [facility] [place] [address], [facility] Eosinophils/100 WBC (Bld) 4.0 % Normal 0.0-6.0 [facility] Comment on above: Performed By: #### 5 0103 #### [facility] [address] Erythrocyte distribution width (RBC) [Ratio] 14.4 % Normal 11.5-15.0 [facility] Comment on above: Performed By: #### 5 0103 #### [facility] [address] [facility] [place] [address], [facility] Hematocrit (Bld) [Volume fraction] 39.3 % Normal 39.0-50.0 [facility] Comment on above: Performed By: #### 5 0103 #### [facility] [address] [facility]. [address] Hemoglobin (Bld) [Mass/Vol] 12.7 g/dL Low 13.0-17.0 [facility] Comment on above: Performed By: #### 5 0103 #### [facility] [address] [facility]. [address] IMMATURE GRANS 0.8 % Normal 0.0-1.0 [facility] Comment on above: Performed By: #### 5 0103 #### [facility] [address] [facility]. [address] Lymphocytes (Bld) [#/Vol] 1.4 10*3/uL Normal 1.2-4.0 [facility] Comment on above: Performed By: #### 5 0103 #### [facility] [address] [facility]. [address] Lymphocytes/100 WBC (Bld) 16.6 % Low 20.0-45.0 [facility] Comment on above: Performed By: #### 5 3 #### [facility] [address] [place] [address], [facility] MCH (RBC) [Entitic mass] 30.3 pg Normal 27.0-33.0 [facility] Comment on above: Performed By: #### 5 0103 #### [facility] [address] [place] [address], [facility] MCHC (RBC) [Mass/Vol] 32.3 g/dL Normal 32.0-35.0 [facility] Comment on above: Performed By: #### 5 3 #### [facility] [address] [place] [address], [facility] MCV (RBC) [Entitic vol] 93.8 fL Normal 82.0-98.0 [facility] Comment on above: Performed By: #### 5 3 #### [facility] [address] [facility] [place] [address], [facility] Monocytes (Bld) [#/Vol] 0.4 10*3/uL Normal 0.1-1.0 [facility] Comment on above: Performed By: #### 5 102 #### [facility] [address] [facility] [place] [address], [facility] MONOS 4.9 % Low 5.0-12.0 [facility] Comment on above: Performed By: #### 5 3 #### [facility] [address] [facility] [place] [address], [facility] Neutrophils/100 WBC (Bld) 73.0 % High 40.0-72.0 [facility] Comment on above: Performed By: #### 5 3 #### [facility] [address] [facility] [place] [address], [facility] Nucleated RBC/100 WBC (Bld) [Ratio] 0 % Normal 0-0 [facility] Comment on above: Performed By: #### 5 3 #### [facility] [address] [place] [id number], [facility] PLAT CNT 205 10*3/uL Normal 150-400 [facility] Comment on above: Performed By: #### 5 3 #### [facility] [address] [place] [address], [facility] RBC (Bld) [#/Vol] 4.19 10*6/uL Low 4.20-5.70 [facility] Comment on above: Performed By: #### 5 0103 #### [facility] [address] [place] [address], [facility] WBC (Bld) [#/Vol] 8.53 10*3/uL Normal 4.00-10.60 [facility] Comment on above: Performed By: #### 5 0103 #### [facility] [address] [place] [address], [facility] CREATININE URINE RANDOMon Creatinine [Mass/Vol] 62.0 mg/dL Normal [facility] Comment on above: Order Comment: No: D o not add to previous draw Result Comment: Ther e are no established reference values for random urine specimens Performed By: #### 2 5706, 85138, 55387 #### [facility] [address] [place] [address], [facility] LIVER BATTERYon 10-05-2019 Albumin [Mass/Vol] 4.6 g/dL Normal 3.5-5.[address] [facility] Comment on above: Order Comment: Yes: Add to Previous draw if able Performed By: #### 0 0071, 38433 #### [facility] [address] [place] [address], [facility] ALKALINE PHOSPH 56 IU/L Normal 34-104 [facility] Comment on above: Order Comment: Yes: Add to Previous draw if able Performed By: #### 0 0071, 22427 #### [facility] [address] [place] [address], [facility] ALT [Catalytic activity/Vol] 26 U/L Normal 7-52 [facility] Comment on above: Order Comment: Yes: Add to Previous draw if able Performed By: #### 0 0071, 57882 #### [facility] [address] [place] [address], [place] AST [Catalytic activity/Vol] 25 U/L Normal 13-39 [facility] Comment on above: Order Comment: Yes: Add to Previous draw if able Performed By: #### 0 0071, 15559 #### [facility] [address] [place] [address], [place] Bilirubin [Mass/Vol] 0.5 mg/dL Normal 0.3-1.0 [facility] Comment on above: Order Comment: Yes: Add to Previous draw if able Performed By: #### 0 0071, 25728 #### [facility] [address] [place] [address], [place] Bilirubin.direct [Mass/Vol] 0.1 mg/dL Normal 0.0-0.2 [facility] Comment on above: Order Comment: Yes: Add to Previous draw if able Performed By: #### 0 0071, 24272 #### [facility] [address] [place] [address], [place] Protein [Mass/Vol] 7.6 g/dL Normal 6.0-8.[address] [facility] Comment on above: Order Comment: Yes: Add to Previous draw if able Performed By: #### 0 0071, 79988 #### [facility] [address] [place] [address], [place] SODIUM URINE RANDOMon 2019 Sodium (U) [Moles/Vol] 111 mmol/L Normal [facility] Comment on above: Order Comment: No: D o not add to previous draw Result Comment: Ther e are no established reference values for random urine specimens Performed By: #### 2 5706, 53258, 98666 #### [facility] [address] [place] [address], [place] UA,MICROSCOPIC REQUIREDon Appearance (U) CLEAR Normal CLEAR [facility] Comment on above: Order Comment: No: D o not add to previous draw Performed By: #### 9 0150 #### [facility] [address] [place] [address], [place] Bilirubin [Mass/Vol] Negative Normal NEGATIVE [facility] Comment on above: Order Comment: No: D o not add to previous draw Performed By: #### 9 0150 #### [facility] [address] [place] [address], [place] BLOOD Negative Normal NEGATIVE [facility] Comment on above: Order Comment: No: D o not add to previous draw Performed By: #### 9 0150 #### [facility] [address] [place] [address], [place] Color (U) YELLOW Normal YELLOW [facility] Comment on above: Order Comment: No: D o not add to previous draw Performed By: #### 9 0150 #### [facility] [address] [place] [address], [place] EPIS OCC Normal FEW,OCC,NONE SEEN [facility] Comment on above: Order Comment: No: D o not add to previous draw Performed By: #### 9 0150 #### [facility] [address] [place] [address], [place] Glucose [Mass/Vol] Negative Normal NEGATIVE The [facility] Comment on above: Order Comment: No: D o not add to previous draw Performed By: #### 9 0150 #### [facility] [address] [place] [address], [place] HYALINE CASTS 1 /LPF Abnormal NONE SEEN The [facility] Comment on above: Order Comment: No: D o not add to previous draw Performed By: #### 9 0150 #### [facility] [address] [place] [address], [place] KETONE Negative Normal NEGATIVE [facility] Comment on above: Order Comment: No: D o not add to previous draw Performed By: #### 9 0150 #### [facility] [address] [place] [address], [place] LEUK BURAK Negative Normal NEGATIVE [facility] Comment on above: Order Comment: No: D o not add to previous draw Performed By: #### 9 0150 #### [facility] [address] [place] [address], [place] Nitrite Ql (U) Negative Normal NEGATIVE [facility] Comment on above: Order Comment: No: D o not add to previous draw Performed By: #### 9 0150 #### [facility] [address] [place] [address], [place] pH (Bld) 6.0 Normal 5.0-8.0 [facility] Comment on above: Order Comment: No: D o not add to previous draw Performed By: #### 9 0150 #### [facility] [address] [place] [address], [place] Protein [Mass/Vol] Negative Normal NEGATIVE [facility] Comment on above: Order Comment: No: D o not add to previous draw Performed By: #### 9 0150 #### [facility] [address] [place] [address], [place] RBC (Bld) [#/Vol] 0-2 Abnormal NONE SEEN [facility] Comment on above: Order Comment: No: D o not add to previous draw Performed By: #### 9 0150 #### [facility] [address] [place] [address], [place] SPEC GRAV 1.012 Low 1.015-1.020 [facility] Comment on above: Order Comment: No: D o not add to previous draw Performed By: #### 9 0150 #### [facility] [address] [place] [address], [place] WBC UA 0-2 Abnormal NONE SEEN [facility] Comment on above: Order Comment: No: D o not add to previous draw Performed By: #### 9 0150 #### [facility] [address] [facility] [place] [address], [facility] UREA NITROGEN URon 0 Urea nitrogen [Mass/Vol] 566 mg/dL Normal [facility] Comment on above: Order Comment: No: D o not add to previous draw Result Comment: Ther e are no established reference values for random urine specimens Performed By: #### 2 5706, 21119, 38772 #### [facility] [address] [facility] [place] [address], [facility] US RENALon 10-05-2019 RENAL [facility] Department of Radiology [address] [place] [address] [id number] ======== Patient Name: KEL CASTILLO : 1955 Sex: M Age: Race: White Pt. Location: [id number] Patient Status: I Ordered Date: 10/05/2019 10:45:00 AM Completed Date: 10/05/2019 12:43 PM Requesting Provider: LIU KRUEGER Attending Provider: DUKE RANGEL Report Copy To: Signs & Symptoms: Increased Creatinine History: See Comments Comments: Hydronephrosis Exam: US RENAL ======== US RENAL 10/05/2019 12:43 PM CLINICAL INDICATIONS: Increased Creatinine QUESTION FOR THE RADIOLOGIST: Hydronephrosis TECHNIQUE: Sonography bladder and kidneys. COMPARISON: none FINDINGS: Both kidneys are normal in size and location measuring 10.8 cm on right 11.0 cm on left. The right kidney lower pole, 8 mm cyst is present. X line no hydronephrosis or shadowing stones. Bladder shows no wall thickening. Bladder volume is 114 cc with 20 cc post void residual. IMPRESSION: No hydronephrosis. Electronically signed: Robinson Castellanos. Transcribed by: [id number], User Resident: Electronically Signed by: ROBINSON CASTELLANOS @ 10/05/2019 03:41 PM Normal [facility] Comment on above: Order Comment: Dousman nephrosis Vital Signs Date Time Vital Sign Value Performing Clinician Facility 01-25-2023 10:00-0400 Body height 167.64 cm Lisseth Toscano Other [facility] [employer] [facility] Other 01-25-2023 10:00-0400 Body mass index (BMI) [Ratio] 31.57 kg/m2 Lisseth Toscano Other [employer] [facility] Other 01-25-2023 10:00-0400 Body temperature 96.2 [degF] Lisseth Toscano Other [facility] [employer] [facility] Other 01-25-2023 10:00-0400 Body weight 88.72 kg Lisseth Toscano Other [employer] Other 01-25-2023 10:00-0400 Diastolic blood pressure 76 mm[Hg] Lisseth Toscano Other [employer] Other 01-25-2023 10:00-0400 Respiratory rate 20 /min Lisseth Toscano Other [employer] Other 01-25-2023 10:00-0400 SaO2% (BldA) [Mass fraction] 98 % Lisseth Toscano Other [employer] Other 01-25-2023 10:00-0400 Systolic blood pressure 147 mm[Hg] Lisseth Toscano Other [employer] Other 08-15-2022 15:40-0500 Body height 167.6 cm Ebony Mandeep DO Work Phone: [facility] 08-15-2022 15:40-0500 Body weight 89.81 kg Ebony Mandeep DO Work Phone: [facility] 08-15-2022 15:40-0500 Diastolic blood pressure 78 mm[Hg] Ebony Mandeep DO Work Phone: [facility] 08-15-2022 15:40-0500 Heart rate 61 /min Ebony Mandeep DO Work Phone: [facility] 08-15-2022 15:40-0500 SaO2% (BldA) [Mass fraction] 100 % Ebony Mandeep DO Work Phone: [facility] 08-15-2022 15:40-0500 Systolic blood pressure 148 mm[Hg] Ebony Mandeep DO Work Phone: [facility] 07-10-2022 14:40-0500 Body height 167.64 cm Lisseth Toscano Other [employer] Other 07-10-2022 14:40-0500 Body mass index (BMI) [Ratio] 31.95 kg/m2 Lisseth Toscano Other [employer] Other 07-10-2022 14:40-0500 Body weight 89.81 kg Lisseth Toscano Other [employer] Other 07-10-2022 14:40-0500 Diastolic blood pressure 70 mm[Hg] Lisseth Toscano Other [employer] Other 07-10-2022 14:40-0500 SaO2% (BldA) [Mass fraction] 95 % Lisseth Toscano Other [employer] Other 07-10-2022 14:40-0500 Systolic blood pressure 128 mm[Hg] Lisseth Toscano Other [employer] Other 06-05-2022 16:30-0400 Body height 167.64 cm Corona Monroe Other [employer] Other 06-05-2022 16:30-0400 Body mass index (BMI) [Ratio] 32.12 kg/m2 Corona Caseban Other [employer] Other 06-05-2022 16:30-0400 Body temperature 96.5 [degF] Corona Casesoila Other [employer] Other 06-05-2022 16:30-0400 Body weight 90.27 kg Corona Caseban Other [employer] Other 06-05-2022 16:30-0400 Diastolic blood pressure 82 mm[Hg] Corona Caseban Other [employer] Other 06-05-2022 16:30-0400 Respiratory rate 20 /min Corona Caseban Other [employer] Other 06-05-2022 16:30-0400 SaO2% (BldA) [Mass fraction] 96 % Corona Caseban Other [employer] Other 06-05-2022 16:30-0400 Systolic blood pressure 140 mm[Hg] Corona Evieban Other [employer] Other 04-10-2022 09:44-0400 Body height 165.1 cm Ebony Mandeep DO Work Phone: [facility] 04-10-2022 09:44-0400 Body weight 89.68 kg Ebony Mandeep DO Work Phone: [facility] 04-10-2022 09:44-0400 Diastolic blood pressure 69 mm[Hg] Ebony Mandeep DO Work Phone: [facility] 04-10-2022 09:44-0400 Heart rate 57 /min Ebony Mandeep DO Work Phone: [facility] 04-10-2022 09:44-0400 Systolic blood pressure 146 mm[Hg] Ebony Mandeep DO Work Phone: [facility] 02-27-2022 15:30-0400 Body height 167.64 cm Kamkaren Monroe Other [employer] Other 02-27-2022 15:30-0400 Body mass index (BMI) [Ratio] 31.95 kg/m2 Kamkaren Caseban Other [employer] Other 02-27-2022 15:30-0400 Body temperature 96.9 [degF] Kamal Chaban Other [employer] Other 02-27-2022 15:30-0400 Body weight 89.81 kg Kamal Chaban Other [employer] Other 02-27-2022 15:30-0400 Diastolic blood pressure 76 mm[Hg] Kamal Chaban Other [employer] Other 02-27-2022 15:30-0400 Respiratory rate 20 /min Kamal Chaban Other [employer] Other 02-27-2022 15:30-0400 SaO2% (BldA) [Mass fraction] 97 % Corona Monroe Other [employer] Other 02-27-2022 15:30-0400 Systolic blood pressure 142 mm[Hg] Corona Monroe Other [employer] Other 01-29-2022 12:00-0400 Body height 167.64 cm Cristo Suazo Other [employer] Other 01-29-2022 12:00-0400 Body mass index (BMI) [Ratio] 32.84 kg/m2 Cristo Suazo Other [employer] Other 01-29-2022 12:00-0400 Body weight 92.31 kg Cristo Suazo Other [employer] Other 01-29-2022 12:00-0400 Diastolic blood pressure 78 mm[Hg] Cristo Suazo Other [employer] Other 01-29-2022 12:00-0400 Respiratory rate 18 /min Cristo Suazo Other [employer] Other 01-29-2022 12:00-0400 SaO2% (BldA) [Mass fraction] 98 % Cristo Suazo Other [employer] Other 01-29-2022 12:00-0400 Systolic blood pressure 142 mm[Hg] Cristo Suazo Other [employer] Other 12-26-2021 17:00-0400 Body height 167.64 cm Cristo Suazo Other [employer] Other 12-26-2021 17:00-0400 Body mass index (BMI) [Ratio] 31.15 kg/m2 Cristo Suazo Other [employer] Other 12-26-2021 17:00-0400 Body weight 87.54 kg Cristo Suazo Other [employer] Other 12-26-2021 17:00-0400 Diastolic blood pressure 79 mm[Hg] Cristo Suazo Other [employer] Other 12-26-2021 17:00-0400 Respiratory rate 18 /min Cristo Suazo Other [employer] Other 12-26-2021 17:00-0400 SaO2% (BldA) [Mass fraction] 95 % Cristo Suazo Other [employer] Other 12-26-2021 17:00-0400 Systolic blood pressure 161 mm[Hg] Cristo Suazo Other [employer] Other 12-22-2021 08:25-0400 Body height 165.1 cm Jessie Lay MD Work Phone: [facility] 12-22-2021 08:25-0400 Body weight 87.68 kg Jessie Lay MD Work Phone: [facility] 12-22-2021 08:25-0400 Diastolic blood pressure 70 mm[Hg] Jessie Lay MD Work Phone: [facility] 12-22-2021 08:25-0400 Heart rate 59 /min Jessie Lay MD Work Phone: [facility] 12-22-2021 08:25-0400 Systolic blood pressure 153 mm[Hg] Jessie Lay MD Work Phone: [facility] 05-23-2021 15:40-0400 Body height 167.64 cm Reuben Triana Other [employer] Other 05-23-2021 15:40-0400 Body mass index (BMI) [Ratio] 30.84 kg/m2 Reuben Triana Other [employer] Other 05-23-2021 15:40-0400 Body temperature 96.3 [degF] Reuben Triana Other [employer] Other 05-23-2021 15:40-0400 Body weight 86.68 kg Reuben Triana Other [employer] Other 05-23-2021 15:40-0400 Diastolic blood pressure 62 mm[Hg] Reuben Triana Other [employer] Other 05-23-2021 15:40-0400 Respiratory rate 18 /min Reuben Triana Other [employer] Other 05-23-2021 15:40-0400 SaO2% (BldA) [Mass fraction] 94 % Reuben Triana Other [employer] Other 05-23-2021 15:40-0400 Systolic blood pressure 140 mm[Hg] Reuben Triana Other [employer] Other Encounters Encounter Date Encounter Type Care Provider Facility Start: 04-09-2023 End: 04-09-2023 Emergency department patient visit NON STAFF Facility:[facility] Start: 04-09-2023 End: 04-09-2023 ambulatory Lisseth Toscano Other [employer] Other Start: 04-09-2023 Telephone encounter Azryan Bakhous [facility] Start: 01-25-2023 End: 01-25-2023 ambulatory Aziz Bakhous Other [employer] Other Start: 01-25-2023 Office outpatient visit 25 minutes Aziz Bakhous [facility] Start: 08-15-2022 End: 08-15-2022 ambulatory EBONY R MANDEEP Facility:[facility] Start: 08-15-2022 End: 08-15-2022 Patient encounter procedure Ebony Kaufman DO Work Phone: Neurology Comment on above: MCI (mild cognitive impairment) (Primary Dx) Start: 07-27-2022 End: 07-28-2022 ambulatory MEDINA Randolph MAZAEDWIN Facility: Start: 07-10-2022 End: 07-10-2022 ambulatory Aziz Bakhous Other [employer] Other Start: 07-10-2022 Office outpatient visit 15 minutes Aziz Bakhous [facility] [place] Start: 07-07-2022 End: 07-08-2022 ambulatory AZIZ BAKHOUS Facility: Start: 07-03-2022 End: 07-03-2022 ambulatory Kamal Chaban Facility:[facility] Start: 06-26-2022 End: 06-26-2022 ambulatory Nadira Choi Other [employer] Other Start: 06-26-2022 Telephone encounter Nadira Choi [facility] [place] Start: 06-05-2022 End: 06-05-2022 ambulatory Kamal Chaban Other [employer] Other Start: 06-05-2022 Office outpatient visit 25 minutes Kamal Chaban [facility] Start: 05-29-2022 End: 05-29-2022 ambulatory Thomas Genesis Other [employer] Other Start: 05-29-2022 Telephone encounter Thomas Genesis [facility] Start: 05-01-2022 Telephone encounter Malinda garcia [facility] Comment on above: Instructor Watch [employer] - O ther (In response to order placed in EPIC) Start: 04-11-2022 End: 04-11-2022 Patient encounter procedure MD Corona Monroe Work Phone: [facility] Start: 04-10-2022 End: 04-10-2022 ambulatory EBONY KAUFMAN Facility:[facility] Start: 04-10-2022 End: 04-10-2022 Patient encounter procedure Ebony Kaufman DO Work Phone: Neurology Comment on above: 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) (Primary Dx); MCI (mild cognitive impairment) Start: 03-13-2022 End: 03-13-2022 ambulatory Thomas Genesis Other [employer] Other Start: 03-13-2022 Telephone encounter Thomas Genesis [facility] Start: 03-05-2022 End: 03-05-2022 ambulatory Thomas Genesis Other [employer] Other Start: 03-05-2022 Telephone encounter Thomas Genesis [facility] Start: 02-28-2022 End: 02-28-2022 ambulatory Corona Monroe Other [employer] Other Start: 02-28-2022 Telephone encounter Corona Monroe [facility] Start: 02-27-2022 End: 02-27-2022 ambulatory Corona Monroe Other [employer] Other Start: 02-27-2022 Office outpatient ne w 45 minutes Corona Monroe [facility] Start: 02-21-2022 Telephone encounter Cristo Bender [facility] [place] Start: 02-21-2022 End: 02-22-2022 ambulatory SHAIKH Randolph [employer] Other Start: 02-09-2022 End: 02-09-2022 ambulatory Pulm [facility] 11 Other Phone: Pulmonary Medicine Comment on above: Spirometry Question regarding Rhiannon PATTON IVCON Start: 02-09-2022 End: 02-09-2022 Patient encounter procedure [facility] Other Phone: [facility] Start: 02-08-2022 End: 02-08-2022 Orders Only Driss Nur MD Work Phone: [facility] Comment on above: Cognitive impairment , mild, so stated (Primary Dx) Shortness of breath (Primary Dx) Cognitive impairment , mild, so stated [G31.84] Start: 02-08-2022 Telephone encounter Thomas Hurtado [facility] Psychiatry Start: 01-29-2022 End: 01-29-2022 ambulatory Cristo Suazo Other [employer] Other Start: 01-29-2022 Office outpatient visit 15 minutes Cristo Suazo [facility] Start: 01-05-2022 End: 01-05-2022 ambulatory Cristo Suazo Other [employer] Other Start: 01-05-2022 Telephone encounter Cristo Bender [facility] Start: 01-01-2022 End: 01-01-2022 ambulatory Cristo Suazo Other [employer] Other Start: 01-01-2022 Telephone encounter Cristo [facility] Start: 12-26-2021 End: 12-26-2021 ambulatory Cristo Suazo Other [employer] Other Start: 12-26-2021 Office outpatient visit 25 minutes Cristo Suazo [facility] Start: 12-22-2021 End: 12-22-2021 ambulatory JESSIE LAY Facility:[facility] Start: 12-22-2021 End: 12-22-2021 Patient encounter procedure Jessie Lay MD Work Phone: Neurology Comment on above: 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); Cognitive impairment, mild, so stated; Depression, unspecified depression type Start: 12-18-2021 End: 12-18-2021 ambulatory Thomas Genesis Other [employer] Other Start: 12-18-2021 Telephone encounter Thomas Genesis [facility] Start: 12-06-2021 End: 12-06-2021 ambulatory Thomas Genesis Other [employer] Other Start: 12-06-2021 Telephone encounter Thomas Genesis [facility] Start: 12-04-2021 End: 12-04-2021 ambulatory Cristo Suazo Other [employer] Other Start: 12-04-2021 Telephone encounter Cristo Bender [facility] Start: 09-13-2021 End: 09-13-2021 ambulatory Thomas Genesis Other [employer] Other Start: 09-13-2021 Telephone encounter Thomas Genesis [facility] Start: 08-16-2021 End: 08-16-2021 ambulatory Cristo Suazo Other [employer] Other Start: 08-16-2021 Telephone encounter Cristo [facility] Start: 05-30-2021 Telephone encounter Cristo Bender [facility] Start: 05-23-2021 Office outpatient visit 25 minutes Reuben Triana [facility] [place] Start: 05-23-2021 Telephone encounter Susannah cade [facility] [place] Start: 04-03-2018 End: 04-04-2018 Patient encounter [facility] Facility[facility] Start: 03-28-2018 End: 03-29-2018 Patient encounter [facility] Facility:[facility] Procedures Date Procedure Procedure Detail Performing Clinician Start: 02-09-2022 Brncdilat rspse spmt ry pre&post-brncdilat admn Igor Lao MD Work Phone: Start: 02-08-2022 MRI 3D POST PROCESSING Driss Nur MD Work Phone: Start: 02-08-2022 Mri brain brain stem w/o contrast material Jessie Lay MD Work Phone: Start: 12-22-2021 Adult depression screening assessment Jessie Lay MD Work Phone: Plan of Treatment Date Care Activity Detail Author Start: 12-22-2022 Adult depression screening assessment DEPRESSION SCREENING [facility] Start: 08-12-2022 ADVANCE DIRECTIVE DISCUSSION ADVANCE DIRECTIVE DISCUSSION [facility] Start: 04-12-2022 Influenza vaccination INFLUENZA (#1) [facility] Start: 02-09-2022 End: 03-10-2023 SPIROMETRY WITH DILATOR IF OBSTRUCTED [facility] Work Phone: Comment on above: Expected: 02/09/2022 , Expires: 03/10/2023 Start: 12-22-2021 End: 02-21-2022 SYPHILIS TOTAL W/REFLEX SYPHILIS TOTAL W/REFLEX Lab Routine Cognitive impairment, mild, so stated 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) Depression, unspecified depression type Expected: 12/22/2021, Expires: 02/21/2022 [facility] Work Phone: Comment on above: Expected: 12/22/2021 , Expires: 02/21/2022 Start: 12-22-2021 End: 02-21-2022 Thyrotropin [Units/volume] in Serum or Plasma TSH BLD Lab Routine Cognitive impairment, mild, so stated 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) Depression, unspecified depression type Expected: 12/22/2021, Expires: 02/21/2022 [facility] Work Phone: Comment on above: Expected: 12/22/2021 , Expires: 02/21/2022 Start: 12-22-2021 End: 02-21-2022 VITAMIN B12 BLOOD VITAMIN B12 BLOOD Lab Routine Cognitive impairment, mild, so stated 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) Depression, unspecified depression type Expected: 12/22/2021, Expires: 02/21/2022 [facility] Work Phone: Comment on above: Expected: 12/22/2021 , Expires: 02/21/2022 Start: 12-05-2021 COVID-19 VACCINE (4 - Booster for Pfizer series) COVID-19 VACCINE (4 - Booster for Pfizer series) [facility] Start: 10-01-2021 COVID-19 VACCINE (4 - Booster for Pfizer series) COVID-19 VACCINE (4 - Booster for Pfizer series) [facility] Start: 08-12-2021 ADVANCE DIRECTIVE DISCUSSION ADVANCE DIRECTIVE DISCUSSION [facility] Start: 2018 PNEUMOCOCCAL: 65+ (1 - PCV) PNEUMOCOCCAL: 65+ (1 - PCV) [facility] Start: 2018 PNEUMOVAX AGE 65 AND OVER WITH 5YR LOOKBACK (#1) PNEUMOVAX AGE 65 AND OVER WITH 5YR LOOKBACK (#1) [facility] Start: 2008 PROSTATE CANCER SCREENING DISCUSSION PROSTATE CANCER SCREENING DISCUSSION [facility] Start: 2003 SHINGRIX VACCINE (1 of 2) SHINGRIX VACCINE (1 of 2) [facility] Start: 1998 COLOGUARD (FIT-DNA) COLOGUARD (FIT-D NA) [facility] Start: 1998 Colonoscopy COLONOSCOPY [facility] Start: 1998 COLORECTAL CANCER SCREENING COLORECTAL CANCER SCREENING [facility] Start: [address] COLONOGRAPHY [facility] Start: 1998 DIABETES SCREEN DIABETES SCREEN [facility] Start: 1998 FECAL OCCULT BLOOD FECAL OCCULT BLOO D [facility] Start: 1998 SIGMOIDOSCOPY SIGMOIDOSCOPY [facility] Start: 1988 LIPID SCREEN LIPID SCREEN [facility] Start: 1972 Urine microalbumin profile DTAP,TDAP,TD (1 - Tdap) [facility] Start: 1971 HEPATITIS C SCREENING HEPATITIS C KRISTOPHER DIAMOND [facility] End: 01-21-2023 Mri brain brain stem w/o contrast material MRI BRAIN WO [facility] Radiology Routine Cognitive impairment, mild, so stated 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) Depression, unspecified depression type 1 Occurrences starting 12/22/2021 until 01/21/2023 [facility] Work Phone: Comment on above: 1 Occurrences starti ng 12/22/2021 until 01/[facility]/20[facility] Immunizations Immunization Date Immunization Notes Care Provider Marina quesada 08-06-2021 COVID-19 Vaccine Pfi zer - Documentation Purposes Only Corona Monroe Other [employer] Other 05-23-2021 influenza, high dose seasonal, preservative-free Susannah Nevarez Other [employer] Other 11-08-2020 COVID-19 Pfizer Susannah montano Other [employer] Other 10-19-2020 COVID-19 Vaccine Pfi zer - Documentation Purposes Only Susannah Nevarez Other [employer] Other 08-03-2020 influenza, high dose seasonal, preservative-free Susannah Nevarez Other [employer] Other 08-03-2020 pneumococcal polysaccharide vaccine, 23 valent Susannah Nevarez Other [employer] Other 08-27-2019 pneumococcal conjuga te vaccine, 13 valent Susannah Nevarez Other [employer] Other Payers Date Payer Category Payer Self-pay [id number] 2020 Unknown [employer]IJAH [employer] PPO [id number] 2020-Present [phone] [address] [place] [address] PPO [id number] 2018 Unknown 2015 Medicare MEDICARE MEDICAR E A AND B [id number] 2015-Present [phone] [place] [address] Medicare [id number] 2015 Medicare MEDICARE MEDICAR E A AND B [id number] 2015-Present [phone] [place] [address] Medicare [id number] 1959 Blue Cross Blue [facility] [id number] 1959 Medicare [id number] 1953 Unknown [id number] 1953 Unknown [id number] 1953 Unknown [id number] Unknown [facility] [id number] Unknown [id number] Unknown [id number] Social History Date Type Detail Facility Start: 12-22-2021 End: 08-15-2022 Tobacco smoking status NHIS Never smoked tobacco [facility] Start: 12-22-2021 End: 04-10-2022 Tobacco use and exposure User of smokeless tobacco [facility] End: 07-14-2022 History of tobacco use Chews Tobacco [facility] Start: 1955 Sex Assigned At Not on file C [facility] Start: 12-12-2021 End: 04-10-2022 Exposure to SARS-CoV-2 (event) Not sure [facility] Sex Assigned At Sex Assigned At Bir th [employer] Other Start: 09-30-2020 Tobacco smoking status NHIS Ex-smoker (finding) [facility] Start: 1955 Sex Assigned At Male F [facility] Start: 08-15-2022 Tobacco use and exposure Former smokeless tobacco user [facility] Medical Equipment Procedure Code Equipment Code Equipment Origin al Text Equipment Identifier Dates Repair, hernia, umbilical Abdominal hernia surgical mesh, composite-polymer [id number] FDA Start: 09-30-2020 Clinical Notes 05-23-2021 to 08-15-2022 Patient InstructionsEbony Kaufman DO - 08/15/2022 3:47 PM EST Note Date & Type Note Facility 08-15-2022 Note HNO ID: [id number] Author: Ebony Kaufman DO Service: ? Author Type: Physician Type: Progress Notes Filed: 08/15/2022 5:31 PM Note Text: [facility] Follow up/ Established patient visit Individuals who were included in, or assisted with the encounter were: Samir Castillo Ebony Kaufman DO Chief Complaint/Issues: Samir Castillo is a 67 year old male seen in the [facility] for: Follow-up Most Recent Neurological Assessment and Plan: Last Filed Values Date of Most Recent Assessment and Plan 04/12/22 Specialty General Neurology Assessment Mr Castillo is a 66 year old man with MCI, likely related to depression and potential sleep apnea. He sees a psychiatrist, but not psychologist Plan He was told to let me know about sleep study results Psychology referral made Follow-up 4 months HPI/Interval History: Here for follow-up with his daughter. Memory about the same, maybe a bit worse around [place] given the anniversary of his daughter's was around that time also. Since last visit was diagnosed with sleep apnea. Just started CPAP, getting used to it, not using it all night yet. Denies SI, had to start seeing a new psychiatrist since his regular one went to inpatient consults only. General Examination: BP 148/78 Pulse 61 Ht 167.6 cm (5' 6 ) Wt 89.8 kg (198 lb) SpO2 100% BMI 31.96 kg/m? General: Awake, alert, interactive, no acute distress, good nutritional status, normal development, well-kept Skin: Rash: absent Pigmentation: absent HEENT: Head: normocephalic, no dysmorphism Eyes: normal Oropharynx: normal Extremities: Edema: absent Trophic change: absent Heart: RRR, no cyanosis Lungs: Chest rise symmetrical Neurological Exam Mental Status Alert, fully oriented, attentive, speech and affect. Trouble with serial 7's and abstraction Motor Examination and Coordination Motor examination with normal bulk, strength and tone. No drift. Normal rapid alternating movements and coordination. No adventitious movements or significant tremor. Reflexes Deep tendon reflexes graded by [facility] Gait Gait normal Assessment AND Plan 08/15/2022 - General Neurology, Ebony Kaufman, DO ASSESSMENT Mr. Castillo is a 67 year old man with MCI, largely attributed to severe JITENDRA and depression. PLAN He was told work with his providers for the depression and JITNEDRA. We will re-evaluate things in 6 months No diagnosis found. No follow-ups on file. Data Review Objective Current Outpatient Medications Medication Sig traZODone (DESYREL) 100 mg tablet Take 100 mg by mouth daily at bedtime. albuterol HFA (PROVENTIL HFA, VENTOLIN HFA) 90 mcg/actuation inhaler albuterol sulfate HFA 90 mcg/actuation aerosol inhaler INHALE 1 PUFF BY MOUTH EVERY 4 HOURS NEEDED albuterol HFA (PROVENTIL HFA, VENTOLIN HFA) 90 mcg/actuation inhaler INHALE 1 PUFF BY MOUTH EVERY 4 HOURS NEEDED amLODIPine (NORVASC) 5 mg tablet amlodipine 5 mg tablet TAKE 1 TABLET BY MOUTH EVERY DAY aspirin, enteric coated (ASPIRIN, ENTERIC COATED) 81 mg EC tablet q 24 HR. atorvastatin (LIPITOR) 80 mg tablet atorvastatin 80 mg tablet TAKE 1 TABLET BY MOUTH EVERY DAY buPROPion XL (WELLBUTRIN XL) 300 mg 24 hr tablet bupropion HCl XL 300 mg 24 hr tablet, extended release TAKE 1 TABLET BY MOUTH EVERY DAY IN THE MORNING busPIRone (BUSPAR) 15 mg tablet buspirone 15 mg tablet TAKE 1 TABLET BY MOUTH TWICE DAILY clopidogrel (PLAVIX) 75 mg tablet clopidogrel 75 mg tablet TAKE 1 TABLET BY MOUTH AT BEDTIME doxepin capsule 50 mg (Patient not taking: No sig reported) famotidine (PEPCID) 20 mg tablet famotidine 20 mg tablet TAKE 1 TABLET BY MOUTH EVERY DAY AT BEDTIME NEEDED Fenofibrate Micronized 43 mg capsule Take 43 mg by mouth twice daily. isosorbide mononitrate ER (IMDUR) 60 mg 24 hr tablet isosorbide mononitrate ER 60 mg tablet,extended release 24 hr TAKE 1 TABLET BY MOUTH EVERY MORNING lisinopril (ZESTRIL, PRINIVIL) 10 mg tablet lisinopril 10 mg tablet (Patient not taking: Reported on 04/10/2022) metoprolol succinate ER (TOPROL XL) 50 mg 24 hr tablet metoprolol succinate ER 50 mg tablet,extended release 24 hr TAKE 1 TABLET BY MOUTH TWICE DAILY nitroglycerin sublingual (NITROQUICK) 0.4 mg SL tablet nitroglycerin 0.4 mg sublingual tablet OLANZapine (ZYPREXA) 5 mg tablet olanzapine 5 mg tablet TAKE 1 TABLET BY MOUTH EVERY DAY AT BEDTIME sertraline (ZOLOFT) 100 mg tablet sertraline 100 mg tablet TAKE 1 AND 1/2 TABLETS BY MOUTH EVERY DAY Umtwisjmuypee-Kjibtglo-Ahzvpm (MULTIVITAMIN 50 PLUS) tab Take 1 tablet by mouth once daily. omega 6-hya-str-fish oil (FISH OIL) 100-160-1,000 mg cap Take by mouth. methylPREDNISolone (MEDROL, TEAGAN,) 4 mg Dose-Pack Take as instructed (Patient not taking: No sig reported) No current facility-administered medications for this (more content not included)... [facility] 08-15-2022 Instructions Ebony Kaufman DO - 08/15/2022 4:17 PM EST Please work with your doctor on the sleep apnea and psychiatrist for depression. Follow-up in 6 months. documented in this encounter [facility] 08-15-2022 History of Presen t illness Narrative Images from the original note were not included. [facility] General Neurology Follow up/ Established patient visit Individuals who were included in, or assisted with the encounter were: Samir Castillo Ebony Kaufman DO Chief Complaint/Issues: Samir Castillo is a 67 year old male seen in the [facility] for: Follow-up Most Recent Neurological Assessment and Plan: Last Filed Values Date of Most Recent Assessment and Plan 04/12/22 Specialty General Neurology Assessment Mr Castillo is a 66 year old man with MCI, likely related to depression and potential sleep apnea. He sees a psychiatrist, but not psychologist Plan He was told to let me know about sleep study results Psychology referral made Follow-up 4 months HPI/Interval History: Here for follow-up with his daughter. Memory about the same, maybe a bit worse around [place] given the anniversary of his daughter's was around that time also. Since last visit was diagnosed with sleep apnea. Just started CPAP, getting used to it, not using it all night yet. Denies SI, had to start seeing a new psychiatrist since his regular one went to inpatient consults only. General Examination: BP 148/78 Pulse 61 Ht 167.6 cm (5' 6 ) Wt 89.8 kg (198 lb) SpO2 100% BMI 31.96 kg/m General: Awake, alert, interactive, no acute distress, good nutritional status, normal development, well-kept Skin: Rash: absent Pigmentation: absent HEENT: Head: normocephalic, no dysmorphism Eyes: normal Oropharynx: normal Extremities: Edema: absent Trophic change: absent Heart: RRR, no cyanosis Lungs: Chest rise symmetrical Neurological Exam Mental Status Alert, fully oriented, attentive, speech and affect. Trouble with serial 7's and abstraction Motor Examination and Coordination Motor examination with normal bulk, strength and tone. No drift. Normal rapid alternating movements and coordination. No adventitious movements or significant tremor. Reflexes Deep tendon reflexes graded by [facility] Gait Gait normal Assessment & Plan 08/15/2022 - General Neurology, Ebony Kaufman, DO ASSESSMENT Mr. Castillo is a 67 year old man with MCI, largely attributed to severe JITENDRA and depression. PLAN He was told work with his providers for the depression and JITENDRA. We will re-evaluate things in 6 months No diagnosis found. No follow-ups on file. Data Review Objective Current Outpatient Medications Medication Sig traZODone (DESYREL) 100 mg tablet Take 100 mg by mouth daily at bedtime. albuterol HFA (PROVENTIL HFA, VENTOLIN HFA) 90 mcg/actuation inhaler albuterol sulfate HFA 90 mcg/actuation aerosol inhaler INHALE 1 PUFF BY MOUTH EVERY 4 HOURS NEEDED albuterol HFA (PROVENTIL HFA, VENTOLIN HFA) 90 mcg/actuation inhaler INHALE 1 PUFF BY MOUTH EVERY 4 HOURS NEEDED amLODIPine (NORVASC) 5 mg tablet amlodipine 5 mg tablet TAKE 1 TABLET BY MOUTH EVERY DAY aspirin, enteric coated (ASPIRIN, ENTERIC COATED) 81 mg EC tablet q 24 HR. atorvastatin (LIPITOR) 80 mg tablet atorvastatin 80 mg tablet TAKE 1 TABLET BY MOUTH EVERY DAY buPROPion XL (WELLBUTRIN XL) 300 mg 24 hr tablet bupropion HCl XL 300 mg 24 hr tablet, extended release TAKE 1 TABLET BY MOUTH EVERY DAY IN THE MORNING busPIRone (BUSPAR) 15 mg tablet buspirone 15 mg tablet TAKE 1 TABLET BY MOUTH TWICE DAILY clopidogrel (PLAVIX) 75 mg tablet clopidogrel 75 mg tablet TAKE 1 TABLET BY MOUTH AT BEDTIME doxepin capsule 50 mg (Patient not taking: No sig reported) famotidine (PEPCID) 20 mg tablet famotidine 20 mg tablet TAKE 1 TABLET BY MOUTH EVERY DAY AT BEDTIME NEEDED Fenofibrate Micronized 43 mg capsule Take 43 mg by mouth twice daily. isosorbide mononitrate ER (IMDUR) 60 mg 24 hr tablet isosorbide mononitrate ER 60 mg tablet,extended release 24 hr TAKE 1 TABLET BY MOUTH EVERY MORNING lisinopril (ZESTRIL, PRINIVIL) 10 mg tablet lisinopril 10 mg tablet (Patient not taking: Reported on 04/10/2022) metoprolol succinate ER (TOPROL XL) 50 mg 24 hr tablet metoprolol succinate ER 50 mg tablet,extended release 24 hr TAKE 1 TABLET BY MOUTH TWICE DAILY nitroglycerin sublingual (NITROQUICK) 0.4 mg SL tablet nitroglycerin 0.4 mg sublingual tablet OLANZapine (ZYPREXA) 5 mg tablet olanzapine 5 mg tablet TAKE 1 TABLET BY MOUTH EVERY DAY AT BEDTIME sertraline (ZOLOFT) 100 mg tablet sertraline 100 mg tablet TAKE 1 AND 1/2 TABLETS BY MOUTH EVERY DAY Sifrfszcyukpz-Ekpofxwi-Onbuhu (MULTIVITAMIN 50 PLUS) tab Take 1 tablet by mouth once daily. omega 0-mtz-yer-fish oil (FISH OIL) 100-160-1,000 mg cap Take by mouth. methylPREDNISolone (MEDROL, TEAGAN,) 4 mg Dose-Pack Take as instructed (Patient not taking: No sig reported) No current facility-administered medications for this visit. ACTIVE PROBLEM LIST Dyspnea and Respiratory Abnormalities Recurrent Major Depression in Partial Remission (Hcc) Mci (Mild Cognitive Impairment) No past medical history on file. No past surgical history on file. Social History Tobacco Use Smoking status: Never Smokeless tobacco: Former Types: Chew Quit date: 07/14/2022 No family history on file. Review of Systems All other systems reviewed and are negative. Subjective Patient-Entered Data: 08/15/22 - PHQ-2 Score: 6 PHQ-9 Score: 20 GENERAL NEUROLOGY SCORES PROMIS 10 12/22/2021 04/10/2022 08/08/2022 In general, would you say your health is: Poor Fair Fair In general, would you say your quality of life is: Poor Poor Poor In general, how would you rate your physical health? Poor Poor Poor In general, how would you rate your mental health, including your mood and your ability to think? Poor Poor Poor In general, how would you rate your satisfaction with your social activities and relationships? Poor Poor Poor To what extent are you able to carry out your everyday physical activities such as walking, climbing stairs, carrying groceries, or moving a chair? A little A little A little In general, please rate how well you carry out your usual social activities and roles. (This includes activities at home, at work and in your community, and responsibilities as a parent, child, spouse, employee, friend, etc.) Poor Poor Poor How would you rate your pain on average? 7 7 5 How would you rate your fatigue on average? Very severe Severe Very severe How often have you been bothered by emotional problems such as feeling anxious, depressed or irritable? Always Often Always PROMIS Adult Short Form-Global Health Score (Physical) 23.5 (Poor) 26.7 (Poor) 26.7 (Poor) PROMIS Adult Short Form-Global Health Score (Mental) 21.2 (Poor) 25.1 (Poor) 21.2 (Poor) Depression Screening 04/10/2022 08/08/2022 08/14/2022 PHQ-2 Score 5 - 6 PHQ-9 Score 19 - 20 EDITH-2 Total Score - 5 - EDITH-7 Total Score - 16 - SLEEP APNEA SCORE 12/22/2021 08/08/2022 Probability of moderate-severe sleep apnea (%) SAPS V2 23.61 (Sleep study not recommended) 72 (Recommend sleep study) AVERAGE SLEEP 24 HOURS 04/10/2022 Average sleep last 24 hrs 9 PROMIS CAT Sleep Disturbance 12/21/2021 PROMIS Sleep Disturbance T-Score 78 (severe) I spent a total of 25 minutes on the date of the service which included preparing to see the patient, [id number] patient care, completing clinical documentation, obtaining and/or reviewing separately obtained history, performing a medically appropriate examination, counseling and educating the patient/family/caregiver, and ordering medications, tests, or procedures. Ebony Kaufman DO documented in this encounter [facility] 07-10-2022 Evaluation note Encounter Date Diagnosis Assessment Notes Jun, Chronic kidney disease, stage 3b (ICD-10 - N18.32) Patient now has CKD stage IIIb. kidney function is at baseline SCr 1.5 mg/dl and GFR 45 ml/min Patient has no proteinuria .. Patient is not on GABY inhibitor or ARB due to hyperkalemia. Blood pressures well controlled. PTH within normal limits. Calcium and phosphorus are within normal limit too. I instructed the patient to avoid all NSAIDs and to keep himself well-hydrated. I will follow up with the patient in 6 months . Lab as above prior to next visit Jun, KELLIE (acute kidney injury) (ICD-10 - N17.9) This has resolved. Patient could have worsening kidney function from fenofibrate which is known to cause worsening kidney function. Creatinine peaked at 2.1 mg/dL jin 2020. Serum creatinine last visit1.9 mg/dL UA is benign. Jun, Hypertensive chronic kidney disease w stg 1-4/unsp chr kdny (ICD-10 - I12.9) Blood pressure is well controlled.we will continue same dose of Norvasc, metoprolol and Imdur.continue low-salt diet and monitor blood pressure at home. Jun, CAD (coronary artery disease) of artery bypass graft (ICD-10 - I25.810) Patient has a remote history of CABG. He does see cardiology on an annual basis. He denies episodes of congestive heart failure or chest pain. He is not on any diuretics. Jun, Hyperlipemia (ICD-10 - E78.5) He follow-up with his PCP Dr. Arellano for lipid profile. Jun, Hyperkalemia (ICD-10 - E87.5) last visit potassium was slightly better at 5.4 mmol/L. 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 Author Type: Physician Type: Progress Notes Filed: 04/12/2022 12:26 AM Note Text: [facility] General Neurology New Patient Evaluation Consulting Provider: Jessie Lay [id number] [facility] [id number] Individuals who were included in, or assisted with the encounter were: Samir Castillo Ebony Kaufman DO Chief Complaint/Issues: Samir Castillo is a 66 year old male seen in the [facility] for General Neurology for: Memory HPI: Here for memory loss, previously seen by Dr. Lay. The following is an excerpt from his consult note: Problems with judgment: Yes. Reduced interest in hobbies/activities: Yes, definitely Repeats questions, stories, or statements: No Trouble recalling people's names: Yes, getting worse Trouble learning how to use a tool or appliance: Yes Forgetting the correct month or year: yes Difficulty handling financial affairs (bill-paying, taxes): he is not doing any fiances, because he feels that he is not feel he is able to do it. Difficulty remembering appointments: Yes Getting lost while driving: He reports getting lost in a familiar places but not often. Difficulty with Cooking or using the oven/kitchen appliances: No, but he does not cook. Difficulty Managing own medication: yes, his daughter manages his medication Memory: notices problems with both short term and mcc memory Language: yes, word finding problems. Knows what he wants to say and cannot find it Change in personality: yes, more isolated. Admits to sadness, depression, and anxiety. Loss of empathy: no Socially inappropriate behavior: no Perseverative behaviors: No Change in eating habits: Yes, no loss of weight. Physical changes: no Depressive symptoms: yes, Apathy:no Hallucinations/Delusions: no Sleep: No, but frequently waking. Prior work-up: none Prior treatments: none Forgets names of family members. Nobody in his family had has memory problems, Distant alcohol use. He denies shaking/tremors. No dysphagia. Has a lot of depression, no SI. Sometimes he wishes he was , though. Sleep Study tomorrow He exercises very little. RLE gives out. Recently did neuropsych, which showed MCI and signs of significant depression. General Examination: BP 146/69 Pulse (!) 57 Ht 165.1 cm (5' 5 ) Wt 89.7 kg (197 lb 11.2 oz) BMI 32.90 kg/m? General: Awake, alert, interactive, no acute distress, good nutritional status, normal development, well-kept Skin: Rash: absent Pigmentation: absent HEENT: Head: normocephalic, no dysmorphism Eyes: normal Oropharynx: normal Extremities: Edema: absent Trophic change: absent Heart: RRR, no cyanosis Lungs: Chest rise symmetrical Neurological Exam Mental Status Alert, fully oriented, attentive, with normal cognition, memory, speech and affect. Cranial Nerves Visual wilson intact. Fundi with normal discs and vasculature. Pupils reactive. Extraocular movements conjugate and full. No ptosis. No nystagmus. Facial sensation intact. Face symmetric and strong. Palate and tongue normal. XI normal. Motor Examination and Coordination Motor examination with normal bulk, strength and tone. No drift. Normal rapid alternating movements and coordination. No adventitious movements or significant tremor. Reflexes Deep tendon reflexes graded by [facility] Sensation LT intact Gait Clinical foot drop R side Assessment AND Plan 04/12/2022 - General Neurology, Ebony Kaufman, DO ASSESSMENT Mr Castillo is a 66 year old man with MCI, likely related to depression and potential sleep apnea. He sees a psychiatrist, but not psychologist PLAN He was told to let me know about sleep study results Psychology referral made Follow-up 4 months No diagnosis found. No follow-ups on file. Data Review Objective Current Outpatient Medications Medication Sig albuterol HFA (PROVENTIL HFA, VENTOLIN HFA) 90 mcg/actuation inhaler albuterol sulfate HFA 90 mcg/actuation aerosol inhaler INHALE 1 PUFF BY MOUTH EVERY 4 HOURS NEEDED albuterol HFA (PROVENTIL HFA, VENTOLIN HFA) 90 mcg/actuation inhaler INHALE 1 PUFF BY MOUTH EVERY 4 HOURS NEEDED amLODIPine (NORVASC) 5 mg tablet amlodipine 5 mg tablet TAKE 1 TABLET BY MOUTH EVERY DAY aspirin, enteric coated (ASPIRIN, ENTERIC COATED) 81 mg EC tablet q 24 HR. atorvastatin (LIPITOR) 80 mg tablet atorvastatin 80 mg tablet TAKE 1 TABLET BY MOUTH EVERY DAY buPROPion XL (WELLBUTRIN XL) 300 mg 24 hr tablet bupropion HCl XL 300 mg 24 hr tablet, extended release TAKE 1 TABLET BY MOUTH EVERY DAY IN THE MORNING busPIRone (BUSPAR) 15 mg tablet buspirone 15 mg tablet TAKE 1 TABLET BY MOUTH TWICE DAILY clopidogrel (PLAVIX) 75 mg tablet clopidogrel 75 mg tablet TAKE 1 TABLET BY MOUTH AT BEDTIME famotidine (PEPCID) 20 mg ta (more content not included)...[facility] 04-10-2022 Instructions* Patient Instructions* Ebony Kaufman DO - 04/10/2022 10:43 AM EDT You were seen by Dr. Kaufman. Your memory test showed mild cognitive impairment. No signs of Alzheimer's Disease at this time. Sleep apnea can cause memory loss and fatigue. We will see how the sleep study goes. Let me know if the foot drop gets worse and we can try the nerve test. Other things to help memory are adequate sleep, regular meals, exercise, brain stimulating activities such as crosswordpuzzles or reading. Please work with psychiatrist on depression. I will also refer you to the psychologist. Follow-up in four months. [facility] History of Present illness Narrative* Ebony Kaufman DO - 04/10/2022 10:11 AM EDT Images from the original note were not included. [facility] for General Neurology New Patient Evaluation Consulting Provider: Jessie Lay [id number] [facility] [id number] Individuals who were included in, or assisted with the encounter were: Samir Kaufman DO Chief Complaint/Issues: Samir Castillo is a 66 year old male seen in the [facility] for General Neurology for: Memory HPI: Here for memory loss, previously seen by Dr. Lay. The following is an excerpt from his consult note: Problems with judgment: Yes. Reduced interest in hobbies/activities: Yes, definitely Repeats questions, stories, or statements: No Trouble recalling people's names: Yes, getting worse Trouble learning how to use a tool or appliance: Yes Forgetting the correct month or year: yes Difficulty handling financial affairs (bill-paying, taxes): he is not doing any fiances, because hefeels that he is not feel he is able to do it. Difficulty remembering appointments: Yes Getting lost while driving: He reports getting lost in a familiar places but not often. Difficulty with Cooking or using the oven/kitchen appliances: No, but he does not cook. Difficulty Managing own medication: yes, his daughter manages his medication Memory: notices problems with both short term and ocean transportation intermediary memory Language: yes, word finding problems. Knows what he wants to say and cannot find it Change in personality: yes, more isolated. Admits to sadness, depression, and anxiety. Loss of empathy: no Socially inappropriate behavior: no Perseverative behaviors: No Change in eating habits: Yes, no loss of weight. Physical changes: no Depressive symptoms: yes, Apathy:no Hallucinations/Delusions: no Sleep: No, but frequently waking. Prior work-up: none Prior treatments: none Forgets names of family members. Nobody in his family had has memory problems, Distant alcohol use. He denies shaking/tremors. No dysphagia. Has a lot of depression, no SI. Sometimes he wishes he was , though. Sleep Study tomorrow He exercises very little. RLE gives out. Recently did neuropsych, which showed MCI and signs of significant depression. General Examination: BP 146/69 Pulse (!) 57 Ht 165.1 cm (5' 5 ) Wt 89.7 kg (197 lb 11.2 oz) BMI 32.90 kg/m General: Awake, alert, interactive, no acute distress, good nutritional status, normal development,well-kept Skin: Rash: absent Pigmentation: absent HEENT: Head: normocephalic, no dysmorphism Eyes: normal Oropharynx: normal Extremities: Edema: absent Trophic change: absent Heart: RRR, no cyanosis Lungs: Chest rise symmetrical Neurological Exam Mental Status Alert, fully oriented, attentive, with normal cognition, memory, speech and affect. Cranial Nerves Visual wilson intact. Fundi with normal discs and vasculature. Pupils reactive. Extraocular movements conjugate and full. No ptosis. No nystagmus. Facial sensation intact. Face symmetric and strong. Palate and tongue normal. XI normal. Motor Examination and Coordination Motor examination with normal bulk, strength and tone. No drift. Normal rapid alternating movementsand coordination. No adventitious movements or significant tremor. Reflexes Deep tendon reflexes graded by MRC Sensation LT intact Gait Clinical foot drop R side Assessment & Plan 04/12/2022 - General Neurology, Ebony Kaufman, DO ASSESSMENT Mr Castillo is a 66 year old man with MCI, likely related to depression and potential sleep apnea. Hesees a psychiatrist, but not psychologist PLAN He was told to let me know about sleep study results Psychology referral made Follow-up 4 months No diagnosis found. No follow-ups on file. Data Review Objective Current Outpatient Medications Medication Sig albuterol HFA (PROVENTIL HFA, VENTOLIN HFA) 90 mcg/actuation inhaler albuterol sulfate HFA 90 mcg/actuation aerosol inhaler INHALE 1 PUFF BY MOUTH EVERY 4 HOURS NEEDED albuterol HFA (PROVENTIL HFA, VENTOLIN HFA) 90 mcg/actuation inhaler INHALE 1 PUFF BY MOUTH EVERY 4HOURS NEEDED amLODIPine (NORVASC) 5 mg tablet amlodipine 5 mg tablet TAKE 1 TABLET BY MOUTH EVERY DAY aspirin, enteric coated (ASPIRIN, ENTERIC COATED) 81 mg EC tablet q 24 HR. atorvastatin (LIPITOR) 80 mg tablet atorvastatin 80 mg tablet TAKE 1 TABLET BY MOUTH EVERY DAY buPROPion XL (WELLBUTRIN XL) 300 mg 24 hr tablet bupropion HCl XL 300 mg 24 hr tablet, extended release TAKE 1 TABLET BY MOUTH EVERY DAY IN THE MORNING busPIRone (BUSPAR) 15 mg tablet buspirone 15 mg tablet TAKE 1 TABLET BY MOUTH TWICE DAILY clopidogrel (PLAVIX) 75 mg tablet clopidogrel 75 mg tablet TAKE 1 TABLET BY MOUTH AT BEDTIME famotidine (PEPCID) 20 mg tablet famotidine 20 mg tablet TAKE 1 TABLET BY MOUTH EVERY DAY AT BEDTIME NEEDED Fenofibrate Micronized 43 mg capsule Take 43 mg by mouth twice daily. isosorbide mononitrate ER (IMDUR) 60 mg 24 hr tablet isosorbide mononitrate ER 60 mg tablet,extended release 24 hr TAKE 1 TABLET BY MOUTH EVERY MORNING metoprolol succinate ER (TOPROL XL) 50 mg 24 hr tablet metoprolol succinate ER 50 mg tablet,extended release 24 hr TAKE 1 TABLET BY MOUTH TWICE DAILY OLANZapine (ZYPREXA) 5 mg tablet olanzapine 5 mg tablet TAKE 1 TABLET BY MOUTH EVERY DAY AT BEDTIME sertraline (ZOLOFT) 100 mg tablet sertraline 100 mg tablet TAKE 1 AND 1/2 TABLETS BY MOUTH EVERY DAY Igonxtjzhiqli-Vijxaibg-Jwsbnj (MULTIVITAMIN 50 PLUS) tab Take 1 tablet by mouth once daily. omega 7-pln-kxt-fish oil (FISH OIL) 100-160-1,000 mg cap Take by mouth. buPROPion XL (WELLBUTRIN XL) 150 mg 24 hr tablet TAKE 1 TABLET BY MOUTH EVERY DAY IN THE MORNING (Patient not taking: No sig reported) doxepin capsule 50 mg (Patient not taking: No sig reported) lisinopril (ZESTRIL, PRINIVIL) 10 mg tablet lisinopril 10 mg tablet (Patient not taking: Reported on 04/10/2022) nitroglycerin sublingual (NITROQUICK) 0.4 mg SL tablet nitroglycerin 0.4 mg sublingual tablet methylPREDNISolone (MEDROL, TEAGAN,) 4 mg Dose-Pack Take as instructed (Patient not taking: No sig reported) No current facility-administered medications for this visit. ACTIVE PROBLEM LIST Dyspnea and Respiratory Abnormalities No past medical history on file. No past surgical history on file. Social History Tobacco Use Smoking status: Never Smokeless tobacco: Current Types: Chew No family history on file. Review of Systems All other systems reviewed and are negative. Subjective Patient-Entered Data: 04/10/22 - PHQ-2 Score: 5 PHQ-9 Score: 19 GENERAL NEUROLOGY SCORES PROMIS 10 12/22/2021 04/10/2022 In general, would you say your health is: Poor Fair In general, would you say your quality of life is: Poor Poor In general, how would you rate your physical health? Poor Poor In general, how would you rate your mental health, including your mood and your ability to think? Poor Poor In general, how would you rate your satisfaction with your social activities and relationships? Poor Poor To what extent are you able to carry out your everyday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 Language: yes, word finding problems. Knows what he wants to say and cannot find it Change in personality: yes, more isolated. Admits to sadness, depression, and anxiety. Loss of empathy: no Socially inappropriate behavior: no Perseverative behaviors: No Change in eating habits: Yes, no loss of weight. Physical changes: no Depressive symptoms: yes, Apathy:no Hallucinations/Delusions: no Sleep: No, but frequently waking. Prior work-up: none Prior treatments: none The patient is having daily headache, that is located a the front right side, and he feels tinglingin the same area. He reports no light sensitivity or but he noise sensitivity, but he reports some dizziness with the headaches at times. General Examination: BP 153/70 Pulse (!) 59 Ht 165.1 cm (5' 5 ) Wt 87.7 kg (193 lb 4.8 oz) BMI 32.17 kg/m General Exam Neurological Exam Mental Status Alert, fully oriented, attentive, with normal cognition, memory, speech and affect. Cranial Nerves Visual wilson intact. Pupils reactive. Extraocular movements conjugate and full. No ptosis. No nystagmus. Facial sensation intact. Face symmetric and strong. Palate and tongue normal. XI normal. Motor Examination and Coordination Motor examination with normal bulk, strength and tone. No drift. Normal rapid alternating movementsand coordination. No adventitious movements or significant tremor. Reflexes Deep tendon reflexes graded by [facility] Deep Tendon Reflexes Right Left Biceps 2+ 2+ Triceps 2+ 2+ Brachioradialis 2+ 2+ Patellar 2+ 2+ Achilles 2+ 2+ Plantar Downgoing Downgoing Sensation Sensation intact to light touch, pinprick, proprioception and vibration. Gait Casual gait normal. Assessment & Plan 12/22/2021 - General Neurology, Jessie Lay MD ASSESSMENT 66-year-old with memory decline, today on neuro-exam no focal findings were found. His MOCA score was 16/30. Dissuces with family possible etiologies and recommended the following. Dx: dementia on the ddx depression PLAN _MRI brain with volumetric. _Labs:TSH, B12 and RPR. _Neuropsych eval. _Return to clinic once done with work up. No diagnosis found. No follow-ups on file. Data Review Objective Current Outpatient Medications Medication Sig albuterol HFA (PROVENTIL HFA, VENTOLIN HFA) 90 mcg/actuation inhaler albuterol sulfate HFA 90 mcg/actuation aerosol inhaler INHALE 1 PUFF BY MOUTH EVERY 4 HOURS NEEDED albuterol HFA (PROVENTIL HFA, VENTOLIN HFA) 90 mcg/actuation inhaler INHALE 1 PUFF BY MOUTH EVERY 4HOURS NEEDED amLODIPine (NORVASC) 5 mg tablet amlodipine 5 mg tablet TAKE 1 TABLET BY MOUTH EVERY DAY aspirin, enteric coated (ASPIRIN, ENTERIC COATED) 81 mg EC tablet q 24 HR. atorvastatin (LIPITOR) 80 mg tablet atorvastatin 80 mg tablet TAKE 1 TABLET BY MOUTH EVERY DAY buPROPion XL (WELLBUTRIN XL) 300 mg 24 hr tablet bupropion HCl XL 300 mg 24 hr tablet, extended release TAKE 1 TABLET BY MOUTH EVERY DAY IN THE MORNING buPROPion XL (WELLBUTRIN XL) 150 mg 24 hr tablet TAKE 1 TABLET BY MOUTH EVERY DAY IN THE MORNING busPIRone (BUSPAR) 15 mg tablet buspirone 15 mg tablet TAKE 1 TABLET BY MOUTH TWICE DAILY clopidogrel (PLAVIX) 75 mg tablet clopidogrel 75 mg tablet TAKE 1 TABLET BY MOUTH AT BEDTIME doxepin capsule 50 mg famotidine (PEPCID) 20 mg tablet famotidine 20 mg tablet TAKE 1 TABLET BY MOUTH EVERY DAY AT BEDTIME NEEDED Fenofibrate Micronized 43 mg capsule Take 43 mg by mouth twice daily. BREO ELLIPTA 100-25 mcg/dose inhaler INHALE 1 PUFF BY MOUTH EVERY DAY isosorbide mononitrate ER (IMDUR) 60 mg 24 hr tablet isosorbide mononitrate ER 60 mg tablet,extended release 24 hr TAKE 1 TABLET BY MOUTH EVERY MORNING metoprolol succinate ER (TOPROL XL) 50 mg 24 hr tablet metoprolol succinate ER 50 mg tablet,extended release 24 hr TAKE 1 TABLET BY MOUTH TWICE DAILY nitroglycerin sublingual (NITROQUICK) 0.4 mg SL tablet nitroglycerin 0.4 mg sublingual tablet OLANZapine (ZYPREXA) 5 mg tablet olanzapine 5 mg tablet TAKE 1 TABLET BY MOUTH EVERY DAY AT BEDTIME sertraline (ZOLOFT) 100 mg tablet sertraline 100 mg tablet TAKE 1 AND 1/2 TABLETS BY MOUTH EVERY DAY Yzrokrsnapiqj-Leaajler-Vkgfge (MULTIVITAMIN 50 PLUS) tab Take 1 tablet by mouth once daily. omega 1-euw-kns-fish oil (FISH OIL) 100-160-1,000 mg cap Take by mouth. lisinopril (ZESTRIL, PRINIVIL) 10 mg tablet lisinopril 10 mg tablet (Patient not taking: Reported on 12/22/2021) No current facility-administered medications for this visit. There is no problem list on file for this patient. No past medical history on file. No past surgical history on file. Social History Tobacco Use Smoking status: Never Smoker Smokeless tobacco: Current User Types: Chew Substance Use Topics Alcohol use: Not on file Drug use: Not on file No family history on file. Review of Systems Constitutional: Positive for recent weight gain. Negative for fatigue and fever. Skin: Negative for foot swelling, rash and ulceration. HENT: Negative for soreness of mouth/tongue, tinnitus and trouble swallowing. Musculoskeletal: Negative for muscle weakness, neck pain and neck stiffness. Eyes: Negative for visual disturbance. Respiratory: Negative for cough, shortness of breath and wheezing. Cardiovascular: Negative for chest pain. Gastrointestinal: Negative for abdominal pain, reflux and vomiting. Endocrine: Negative for diabetic symptoms and thyroid problem. Genitourinary: Negative for urinary urgency. Hematologic/Lymphatic: Negative for adenopathy and anemia. Allergic/Immunologic: Negative for autoimmune disease. Neurological: Positive for sleep disturbance. Psychiatric: Negative for agitation. Lab and Test Review: No results found for this or any previous visit. Outside Data/Labs: Subjective Patient-Entered Data: 12/22/21 - PHQ-2 Score: 6 PHQ-9 Score: 22 GENERAL NEUROLOGY SCORES PROMIS 10 12/22/2021 In general, would you say your health is: Poor In general, would you say your quality of life is: Poor In general, how would you rate your physical health? Poor In general, how would you rate your mental health, including your mood and your ability to think? Poor In general, how would you rate your satisfaction with your social activities and relationships? Poor To what extent are you able to carry out your everyday physical activities such as walking, climbing stairs, carrying groceries, or moving a chair? A little In general, please rate how well you carry out your usual social activities and roles. (This includes activities at home, at work and in your community, and responsibilities as a parent, child, spouse, employee, friend, etc.) Poor How would you rate your pain on average? 7 How would you rate your fatigue on average? Very severe How often have you been bothered by emotional problems such as feeling anxious, depressed or irritable? Always PROMIS Adult Short Form-Global Health Score (Physical) 23.5 (Poor) PROMIS Adult Short Form-Global Health Score (Mental) 21.2 (Poor) Depression Screening 12/22/2021 PHQ-2 Score 6 PHQ-9 Score 22 SLEEP APNEA SCORE 12/22/2021 Probability of moderate-severe sleep apnea (%) SAPS V2 23.61 (Sleep study not recommended) No flowsheet data found. PROMIS CAT Sleep Disturbance 12/21/2021 PROMIS Sleep Disturbance T-Score 78 (severe) I spent a total of 60 minutes on the date of the service which included preparing to see the patient, [id number] patient care, completing clinical documentation and performing a medically appropriate examination. Jessie Lay MD [facility]* Encounter Date Diagnosis Assessment Notes Treatment Notes Treatment Clinical Notes December, Depression, major, recurrent, moderate (ICD-10 - F33.1) [employer] Other 10-12-2021 Evaluation note* Encounter Date Diagnosis Assessment Notes Treatment Notes Treatment Clinical Notes May, Chronic kidney disease, stage 3b (ICD-10 - N18.32) Patient has a mild CKD stage III possibly related to atherosclerotic renovascular disease and hypertension. Serum creatinine was 1.6 mg/dL in 2019 currently up to 2.1 mg/dL. It is not clear if he has acute component of just progression of underlying CKD. As stated above, renal panel will be rechecked in 3 months with further work-up if indicated. Most likely he has progression of CKD. May, KELLIE (acute kidney injury) (ICD-10 - N17.9) Creatinine is up to 2.1 mg/dL that could be progression of CKD versus acute component for unclear reason. He does not take diuretics or GABY inhibitors. Bilateral kidney ultrasound in August 2019 showed no evidence of hydronephrosis. He stated that no medications was added. Spot urine showed minimal proteinuria 90 mg/g of creatinine Blood pressure is mildly elevated in my office in the 140s range. He stated that blood pressure at home also around 140s to 150s. He is on amlodipine and metoprolol. He follow-up with Dr. Rubio, his author's agent in [place]. He stated that his heart looks fine. He does not know the ejection fraction. He denies chest pain or CHF. With recheck renal panel in 2 to 3-month and if creatinine continues to increase, will obtain another ultrasound since the patient has a history of cancer lung. He does not take any chemotherapy and he stated that the cancer has been cured. May, Hypertensive chronic kidney disease w stg 1-4/unsp chr kdny (ICD-10 - I12.9) Blood pressure is mildly elevated. He stated that blood pressure at home also runs between 140-150 systolic. [place] systolic blood pressure at home should be below 130s. He was advised to increase amlodipine to 10 mg daily and continue monitor home blood pressure. He has no edema. Continue low-salt diet. May, CAD (coronary artery disease) of artery bypass graft (ICD-10 - I25.810) Patient has a remote history of CABG. He does see cardiology on an annual basis. He denies episodes of congestive heart failure or chest pain. He is not on any diuretics. May, Hyperlipemia (ICD-10 - E78.5) He follow-up with his PCP Dr. Arellano for lipid profile. 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)- Primary Other persistent mental disorders due to conditions classified elsewhere Cognitive impairment, mild, so stated Mild cognitive impairment, so stated Depression, unspecified depression type documented in this encounter [facility] noteNo InformationNort [employer] Other evalukraxm noteNort [employer] Other Evfthhkjxx note* Diagnosis Cognitive impairment, mild, so stated- Primary Mild cognitive impairment, so stated documented in this encounter [facility] note* Diagnosis Shortness of breath- Primary documented in this encounter [facility] note* Diagnosis Cognitive impairment, mild, so stated Mild cognitive impairment, so stated 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) Other persistent mental disorders due to conditions classified elsewhere Depression, unspecified depression type documented in this encounter [facility] note* Diagnosis Shortness of breath documented in this encounter [facility] note* Diagnosis Recurrent major 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)- Primary Major depressive disorder, recurrent episode, in partial or unspecified remission MCI (mild cognitive impairment) Mild cognitive impairment, so stated documented in this encounter [facility] noteNo assessment information availableKettering Health [facility] Work Phone: Evaluuafdr note* Diagnosis MCI (mild cognitive impairment)- Primary Mild cognitive impairment, so stated documented in this encounter [facility]Noje[facility] [employer] Other History general Narrative - Reported* Type Description Date Medical History hypertension Medical History hypercholesterolemia Medical History lung cancer Medical History heart disease Medical History A flutter Medical History Esophageal reflux Medical History DEPRESSION AND ANXIETY Surgical History CABG Surgical History hernia Surgical History lobectomy: lung Surgical History [facility]/Dr Joshi--hernia repair 2020 Hospitalization History see above [facility] [employer] Other History general Narrative - [facility]No[facility] [employer] Other History general Narrative - ReportedNojefferson memorial hospital [employer] Other Reason for referral (narrative)* Reason * Waiting for appt pulmonology, lung nodule, progressive SOB, hx. lung cancer Diagnosis 1 Pulmonary nodule (R9 1.1) Referral Organization [facility] Referring Provider First Name Cristo Referring Provider Last Name Gabriele Referring Provider Specialty Family Medi cine Referred Organization [facility] Referred Provider Gonsalo Hawley Referred Address [address] [place] [address],[place] [address],[place], [place],[address] Referred Provider Specialty Pulmonary Di seases Referral Priority Routine General Notes Mattie Carballo 01:40:04 PM >referral received and sent p2p successful per log [facility] [employer] Other Reason for referral (narrative)* Outpatient Procedure (Routine) - Pending Review Specialty Diagnoses / Procedures Referred By Lam chacko Referred To [facility] Diagnoses Shortness of breath Procedures SPIROMETRY WITH DILATOR IF OBSTRUCTED BRNCDILAT RSPSE SPMTRY PRE&POST-BRNCDILAT ADMN Marisol Davis MD [address] [place] [address] [facility] [address] [place] [address] Referral ID Status Reason Start Date Expiration Date Visits Requested Visits Authorized [id number] Pending Review Auto-Generat ed Referral 02/09/2022 03/10/2023 1 [facility] for visit NarrativeRef by Dr. Suazo for pulmonology, lung nodule, progressive SOB, hx. lung cancerNort [employer] Other Summary Purpose Family History No Family History Records Found Relationship Condition Age at Onset Recorded Date/T yanique Not Specified Hypertension Unknown Diabetes mellitus Unknown father Medical history unknown Unknown Advance Directives No Advanced Directives Records Found Advance Directive Response Recorded Date/ Time Advance Directives No July 6:23pm Hospital Course Note MR#: [id number] [facility] Pt. Name: Kel Castillo Admitted: 10/05/2019 Discharged: 10/08/2019 Date of : 1955 Physician: Odalys Cueto MD DISCHARGE SUMMARY PRIMARY DIAGNOSES: 1. Acute kidney injury on chronic kidney disease. 2. Ischemic cardiomyopathy with significant for coronary artery disease. 3. Status post heart catheterization. SECONDARY DIAGNOSES: 1. Coronary artery disease, status post coronary artery bypass graft. 2. Essential hypertension. 3. History of lung cancer, status post chemo and radiation 15 years ago. HOSPITAL COURSE: The patient is a 64-year-old male with past medical history significant as above, presented to the hospital for elective outpatient cardiac catheterization, but was found to have acute kidney injury and heart catheterization was on hold. The patient was admitted for further workup. Nephrology Service was consulted. Recommend to continue IV normal saline and was started on N- acetylcysteine 1200 mg 3 doses evenin (more content not included)... 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) Depression, unspecified depression type Procedures MRI BRAIN WO IVCON MRI BRAIN BRAIN STEM W/[place] [address] [place] [address] Mr Imaging Referral ID Status Reason Start Date Expiration Date Visits Requested Visits Authorized [id number] Authorized Auto-Generat ed Referral 12/22/2021 01/21/2023 1 1 Specialty Diagnoses / Procedures Referred By Lam t Referred To Contact [facility] IMAG[facility] Diagnoses Cognitive impairment, mild, so stated Procedures MRI 3D POST PROCESSING 3D RENDERING W/INTERP&POSTPROC DIFF WORK STATION Alonzo Cabrera MD, [address] [place] [address] Mr Imaging Referral ID Status Reason Start Date Expiration Date Visits Requested Visits Authorized [id number] Pending Review Auto-Generat ed Referral 02/08/2022 03/10/2023 1 1 Referral ID Status Reason Start Date Expiration Date V isits Requested Visits Authorized [id number] Closed Auto-Generate d Referral 12/22/2021 01/21/2023 1 1 Specialty Diagnoses / Procedures Referred By Lam t Referred To Contact Psychology Diagnoses Recurrent major 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) Procedures CONSULT TO PSYCHOLOGY OFFICE/OUTPATIENT [facility] 60-74 MINUTES Ebony Kaufman DO [address] [place] [address] Referral ID Status Reason Start Date Expiration Date Visits Requested Visits Authorized [id number] Pending Review PCP Requested Referral 04/10/2022 04/10/2023 1 1 Chief Complaint and Reason for Visit Chief Complaint g47.30 Additional Source Comments (unrecognized sect ion and content) No Status Records FoundNo Status Records FoundNo Status Records FoundNo Status Records FoundNo Status Records FoundNo Status Records Found INFORMATION SOURCE (unrecogn ized section and content) DATE CREATED AUTHOR [facility]05[facility] DATE CREATED AUTHOR AUTHOR'S ORGANIZ ATION 01/06/2020 [facility] DATE CREATED AUTHOR AUTHOR'S ORGANIZ ATION 03/25/2022 [facility] DATE CREATED AUTHOR AUTHOR'S ORGANIZ ATION 08/15/2022 [facility] DATE CREATED AUTHOR AUTHOR'S ORGANIZ ATION 12/19/2022 [facility] DATE CREATED AUTHOR AUTHOR'S ORGANIZ ATION 04/22/2023 [facility] Source Comments (unrecognize d section and content) In the event this informatio n is protected by the Federal Confidentiality of Alcohol and Drug Abuse Patient Records regulations: The Federal rules restrict any use of the information to criminally investigate or prosecute any alcohol or drug abuse patient.[facility] Hospital[facility] the event this information is protected by the Federal Confidentiality of Alcohol and Drug Abuse Patient Records regulations: The Federal rules restrict any use of the information to criminally investigate or prosecute any alcohol or drug abuse patient.[facility] HospitalIn the event this information is protected by the Federal Confidentiality of Alcohol and Drug Abuse Patient Records regulations: The Federal rules restrict any use of the information to criminally investigate or prosecute any alcohol or drug abuse patient.[facility] HospitalIn the event this information is protected by the Federal Confidentiality of Alcohol and Drug Abuse Patient Records regulations: The Federal rules restrict any use of the information to criminally investigate or prosecute any alcohol or drug abuse patient.[facility] HospitalIn the event this information is protected by the Federal Confidentiality of Alcohol and Drug Abuse Patient Records regulations: The Federal rules restrict any use of the information to criminally investigate or prosecute any alcohol or drug abuse patient.[facility] HospitalIn the event this information is protected by the Federal Confidentiality of Alcohol and Drug Abuse Patient Records regulations: The Federal rules restrict any use of the information to criminally investigate or prosecute any alcohol or drug abuse patient.[facility] HospitalIn the event this information is protected by the Federal Confidentiality of Alcohol and Drug Abuse Patient Records regulations: The Federal rules restrict any use of the information to criminally investigate or prosecute any alcohol or drug abuse patient.[facility] HospitalIn the event this information is protected by the Federal Confidentiality of Alcohol and Drug Abuse Patient Records regulations: The Federal rules restrict any use of the information to criminally investigate or prosecute any alcohol or drug abuse patient.[facility] HospitalIn the event this information is protected by the Federal Confidentiality of Alcohol and Drug Abuse Patient Records regulations: The Federal rules restrict any use of the information to criminally investigate or prosecute any alcohol or drug abuse patient.[facility] Reason for Visit (unrecogniz ed section and content) Reason Comments New Patient Memory loss Specialty Diagnoses / Procedures Referred By Contac t Referred To Contact MR IMAGING Diagnoses Cognitive impairment, mild, so stated 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) Depression, unspecified depression type Procedures MRI BRAIN WO IVCON MRI BRAIN BRAIN STEM W/[place] [address] [place] [address] Mr Imaging Referral ID Status Reason Start Date Expiration Date V isits Requested Visits Authorized [id number] Closed Auto-Generate d Referral 12/22/2021 01/21/2023 1 1 Reason Comments Spirometry Specialty Diagnoses / Procedures Referred By Contac t Referred To Contact [facility] Diagnoses Shortness of breath Procedures SPIROMETRY WITH DILATOR IF OBSTRUCTED BRNCDILAT RSPSE SPMTRY PRE&POST-BRNCDILAT ADMN Marisol Davis MD [address] [place] [address] [facility] [address] [place] [address] Referral ID Status Reason Start Date Expiration Date V isits Requested Visits Authorized [id number] Closed Auto-Generate d Referral 02/09/2022 03/10/2023 1 1 Reason Comments New Patient 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) 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[employer] - Other In response to order placed in EPIC Reason Comments Established Patient Care Teams (unrecognized sec tion and content) Basketball Coach Relationship Specialty Start Date End Date [facility], [place] [address] [place] [address] NI Referring Team Psychiatry 12/21/21 Basketball Coach Relationship Specialty Start Date End Date [facility], [place] [address] [place] [address] NI Referring Team Psychiatry 12/21/21 Basketball Coach Relationship Specialty Start Date End Date [facility], [place] [address] [place] [address] NI Referring Team Psychiatry 12/21/21 Basketball Coach Relationship Specialty Start Date End Date [facility], [place] [address] [place] [address] NI Referring Team Psychiatry 12/21/21 Basketball Coach Relationship Specialty Start Date End Date [facility], [place] [address] [place] [address] NI Referring Team Psychiatry 12/21/21 Basketball Coach Relationship Specialty Start Date End Date [facility], [place] [address] [place] [address] NI Referring Team Psychiatry 12/21/21 Basketball Coach Relationship Specialty Start Date End Date [facility], [place] [address] [place] [address] NI Referring Team Psychiatry 12/21/21 Team Status: Inactive Member Role Status Dates Corona Monroe MD Attending Provider Active Daria Cardoza DO Primary Care Provider Active Team Status: Active Member Role Status Dates Daria Cardoza DO Primary Care Provider Active Basketball Coach Relationship Specialty Start Date End Date [facility], [place] [address] [place] [address] NI Referring Team Psychiatry 12/21/21 Goals (unrecognized section and content) Goals may be documented in a n alternate section FOR RECORDS PERTAINING TO PATIENTS WHO ARE OR HAVE BEEN ENROLLED IN A CHEMICAL DEPENDENCY/SUBSTANCEABUSE PROGRAM, SOME INFORMATION MAY BE OMITTED. This clinical summary was aggregated from multiple sources. Caution should be exercised in using it in the provision of clinical care. This summary normalizes information from multiple sources, and as a consequence, information in this document may materially change the coding, format and clinical context of patient data. In addition, data may be omitted in some cases. CLINICAL DECISIONS SHOULD BE BASED ON THE PRIMARY CLINICAL RECORDS. [facility] [employer] provides no warranty or guarantee of the accuracy or completeness of information in this document.
== END 2023-08-26 11:21 | disposition home or self-care (01) ==
LOC: RAD 11:20
PROVIDERS: PCP Internal Medicine; Visit Provider Orthopaedic Surgery
DX: S42.295D Other nondisplaced fracture of upper end of left humerus, subsequent encounter for fracture with routine healing (principal)
CPT/HCPCS: 73030

== ENCOUNTER 2023-09-05 14:37 | Outpatient (OUT) | payer BC, MEDICARE, SELFPAY ==
--- NOTE | 2023-09-05 14:40 | MR_ITS ---
[facility] [place] [id number] Patient Name: KEL CASTILLO MRN: [id number] date: 1955 Sex: M Assigned Patient Location: MRI Current Patient Location: MRI Accession/Order Number: [id number] Exam Date: 09/05/2023 14:55 Report Date: 09/05/2023 16:15 At the request of: BIMAL ZHANG Procedure: MR shoulder LT wo con MR shoulder LT wo con, 09/05/2023 2:55 PM EST INDICATION: Nondisplaced Fracture Of Upper End Of Left Humerus S42.295D COMPARISON: Prior x-ray of left shoulder dated 08/26/2023 TECHNIQUE: Multiplanar and multisequential MR images of the left shoulder were obtained without contrast. FINDINGS: There are mild hypertrophic degenerative changes of AC joint. There is no os acromiale. No Hill-Sachs is noted. No acute fracture or dislocation is noted. The quadrilateral space and supraspinous notch are unremarkable. There is complete tear of the supraspinatus and infraspinatus with retraction of the supraspinatus tendon to the level of AC joint. T2 prolongation within the supraspinatus and infraspinatus muscle bulk suggesting of muscle tear predominantly in the infraspinatus. The long head of biceps and subscapularis and teres minor are unremarkable. Moderate to severe fatty muscle atrophy of supraspinatus and infraspinatus is noted. The labrum shows significant degenerative changes anteriorly. There is increased intra articular joint effusion with extension to the subacromial subdeltoid bursa. MR/MR shoulder LT wo con IMPRESSION: Complete tear of the supraspinatus and infraspinatus with moderate to severe fatty atrophy. No definite fracture is noted. Electronically authenticated by: BAO RIVERO Date: 09/05/2023 16:15
--- OUTSIDE RECORDS SUMMARY | 2023-09-05 14:40 | XMS_ITS | CCD ---
Author Name Unknown Address [address] [place] [address] Organization [facility] Care Team Providers Care Advertising Sales Consultant Name Role Phone AMBURN, JOMAR Unavailable Unavailable AMBURN, JOMAR Unavailable Unavailable AMBURN, JOMAR Unavailable Unavailable AMBURN, JOMAR Unavailable Unavailable AMBURN, JOMAR Unavailable Unavailable AMBURN, JOMAR Unavailable Unavailable Genesis, Thomas Unavailable Reuben Triana Unavailable Susannah Nevarez Unavailable Cristo Suazo Unavailable Cristo Suazo Unavailable Genesis, Thomas Unavailable Corona Monroe Unavailable Genesis, Thomas Unavailable MD Corona Monroe Attending Provider [phone] DO Daria Cardoza Primary Care Provider [phone] Genesis, Thomas Unavailable Nadira Choi Unavailable Lisseth [...] TABLET BY MOUTH EVERY DAY AT BEDTIME [place]-3 Fatty Acids (1 source) Start: 09-13-2020 take 1000 mg by mouth once daily [place]-3 Fatty Acids Active 1000 MG PO Daily [...] Drug Class(es) Dates Sig (Normalized) Sig (Original) [id number] 200 actuat albuterol 0.09 mg/actuat metered dose [...] 50 PLUS) tab (9 sources) End: 08-15-2022 Vgsvbjrjlhgiv-Yjksqlqd-Htbk in (MULTIVITAMIN 50 PLUS) tab Take 1 tablet by mouth once daily. 0 08/15/2022 Discontinued Multivitamins-Mi nerals-Lutein (MULTIVITAMIN 50 PLUS) tab Take 1 tablet by mouth once daily. 0 Active Comment on above: Take 1 tablet by matt th once daily. 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] Onset: 07-27-2022 Chronic [...] Reference Range Facility CT abdomen pelvis [place] [address] 04-09-2023 CT abdomen pelvis wo [facility] [address] [place], [place] [id number] CT Scan Report Signed Patient: Kel Castillo Jr MR#: [id number] : 1955 Acct:[id number] Age/Sex: 67 / M ADM Date: 04/09/23 Loc: ER Room: Type: [facility] ER Attending Dr: Copies to: Lucy Cope [...] Damien Negrete M.D.04/09/2023 2:28 PM Dictation Location: [place] [address] Transcribed By: [facility] 04/09/23 1428 Dictated By: Damien Negrete DO 04/09/23 142 Signed By: 04/09/23 142 Normal [facility] Complete Blood Count Auto Di ffon 04-09-2023 Basophils (Bld) [#/Vol] 0.1 10*3/uL Normal 0.0-0.2 [facility] Comment on above: Result Comment: PERF ORMED BY: [place] [address] PATHOLOGIST SUSTAINABILITY COMMUNICATOR TROY SIGALA M.D. Performed By: #### C BC #### [address] Basophils/100 WBC (Bld) 1.0 % Normal . [facility] Comment on above: Performed By: #### C BC #### [address] Eosinophils (Bld) [#/Vol] 0.2 10*3/uL Normal 0.0-0.45 [facility] Comment on above: Performed By: #### C BC #### [address] Eosinophils/100 WBC (Bld) 2.8 % Normal . [facility] Comment on above: Performed By: #### C BC #### [address] Erythrocyte distribution width (RBC) [Ratio] 14.5 % Normal 12.0-14.8 [facility] Comment on above: Performed By: #### C BC #### [address] Hematocrit (Bld) [Volume fraction] 39.2 % Normal 38.8-50.0 [facility] Comment on above: Performed By: #### C BC #### [address] Hemoglobin (Bld) [Mass/Vol] 13.0 g/dL Normal 13.0-17.0 [facility] Comment on above: Performed By: #### C BC #### [address] Lymphocytes (Bld) [#/Vol] 1.1 10*3/uL Normal 1.00-4.8 [facility] Comment on above: Performed By: #### C BC #### [facility] [address] Lymphocytes/100 WBC (Bld) 14.1 % Normal . [facility] Comment on above: Performed By: #### C BC #### [facility] [address] MCH (RBC) [Entitic mass] 30.4 pg Normal 27.5-35.2 [facility] Comment on above: Performed By: #### C BC #### [facility] [address] MCV (RBC) [Entitic vol] 91.5 fL Normal 83.5-101 [facility] Comment on above: Performed By: #### C BC #### [address] Mean Corpuscular HGB Conc 33.2 g/dL Normal 32.5-35.6 [facility] Comment on above: Performed By: #### C BC #### [place] [address] [place] Monocytes (Bld) [#/Vol] 0.5 10*3/uL Normal 0.0-0.8 [facility] Comment on above: Performed By: #### C BC #### [address] Monocytes/100 WBC (Bld) 16.97 % Normal 0.00-20.00 [facility] Comment on above: Performed By: #### C BC #### [place] [address] [place] Monocytes/100 WBC (Bld) 6.6 % Normal . [facility] Comment on above: Performed By: #### C BC #### [place] [address] [place] Neutrophils (Bld) [#/Vol] 5.9 10*3/uL Normal 1.8-7.7 [facility] Comment on above: Performed By: #### C BC #### [place] [address] [place] Neutrophils/100 WBC (Bld) 75.5 % Normal . [facility] Comment on above: Performed By: #### C BC #### [address] NRBC% 0.0 /100{WBC} Normal 0-0.5 [facility] Comment on above: Performed By: #### C BC #### [address] Platelet mean volume (Bld) [Entitic vol] 7.5 fL Normal 6.6-10.1 [facility] Comment on above: Performed By: #### C BC #### [address] Platelets (Bld) [#/Vol] 180 10*3/uL Normal 150-450 [facility] Comment on above: Performed By: #### C BC #### [address] RBC (Bld) [#/Vol] 4.29 10*6/uL Normal 3.90-5.60 [facility] Comment on above: Performed By: #### C BC #### [address] WBC (Bld) [#/Vol] 7.8 10*3/uL Normal 4.1-10.5 [facility] Comment on above: Performed By: #### C BC #### [address] Comprehensive Metabolic Pane noe 04-09-2023 Albumin [Mass/Vol] 4.3 g/dL Normal 3.5-5.7 [facility] Comment on above: Performed By: #### P TT, LIPASE, PT, CMP #### [address] Albumin/Globulin [Mass ratio] 1.2 {ratio} Normal [facility] Comment on above: Performed By: #### P TT, LIPASE, PT, CMP #### [address] ALP [Catalytic activity/Vol] 105 U/L High 34-104 [facility] Comment on above: Performed By: #### P TT, LIPASE, PT, CMP #### [address] ALT [Catalytic activity/Vol] 61 U/L High 7-52 [facility] Comment on above: Performed By: #### P TT, LIPASE, PT, CMP #### [address] Anion gap [Moles/Vol] 12.5 mmol/L Normal 6.0-15.0 [facility] Comment on above: Performed By: #### P TT, LIPASE, PT, CMP #### [address] AST [Catalytic activity/Vol] 62 U/L High 13-39 [facility] Comment on above: Performed By: #### P TT, LIPASE, PT, CMP #### [address] Bilirubin [Mass/Vol] 0.8 mg/dL Normal 0.3-1.0 [facility] Comment on above: Performed By: #### P TT, LIPASE, PT, CMP #### [address] Calcium [Mass/Vol] 9.0 mg/dL Normal 8.6-10.3 [facility] Comment on above: Performed By: #### P TT, LIPASE, PT, CMP #### [address] Chloride [Moles/Vol] 107 mmol/L Normal 98-107 [facility] Comment on above: Performed By: #### P TT, LIPASE, PT, CMP #### [address] CO2 [Moles/Vol] 25.1 mmol/L Normal 21.0-31.0 [facility] Comment on above: Performed By: #### P TT, LIPASE, PT, CMP #### [address] [place] [address] [place] Creatinine [Mass/Vol] 1.76 mg/dL High 0.70-1.30 [facility] Comment on above: Performed By: #### P TT, LIPASE, PT, CMP #### [address] Creatinine Clr Calc Pharmacy 40.17 [facility] Comment on above: Performed By: #### P TT, LIPASE, PT, CMP #### [address] GFR/1.73 sq M.predicted MDRD (S/P/Bld) [Vol rate/Area] 41.342 mL/min/{1.73_m2} [facility] Comment on above: Performed By: #### P TT, LIPASE, PT, CMP #### [address] Globulin (S) [Mass/Vol] 3.7 g/dL Normal [facility] Comment on above: Performed By: #### P TT, LIPASE, PT, CMP #### [address] Glucose [Mass/Vol] 89 mg/dL Normal 70-100 [facility] Comment on above: Result Comment: [place] Glucose Reference Range is dependent on time and content of last meal. Glucose of more than 200 mg/dL in a nonstressed, ambulatory subject supports the diagnosis of Diabetes Mellitus. ADA recommended reference range Performed By: #### P TT, LIPASE, PT, CMP #### [address] Potassium [Moles/Vol] 4.6 mmol/L Normal 3.5-5.1 [facility] Comment on above: Performed By: #### P TT, LIPASE, PT, CMP #### [address] Protein [Mass/Vol] 8.0 g/dL Normal 6.4-8.9 [facility] Comment on above: Performed By: #### P TT, LIPASE, PT, CMP #### [address] [place] [address] [place] Sodium [Moles/Vol] 140 mmol/L Normal 136-145 [facility] Comment on above: Performed By: #### P TT, LIPASE, PT, CMP #### [facility] [address] [place] [address] [place] Urea nitrogen [Mass/Vol] 25 mg/dL Normal 7-25 [facility] Comment on above: Performed By: #### P TT, LIPASE, PT, CMP #### [place] [address] [place] Dipstick and Microscopicon 0 04-09-2023 Appearance (U) Cloudy Critically abnormal Clear [facility] Comment on above: Order Comment: Name Collection Type:: Clean-Voided Midstream Performed By: #### A DDONUAPLUS #### [address] Bacteria,Urine None Seen Normal None Seen [facility] Comment on above: Order Comment: Name Collection Type:: Clean-Voided Midstream Performed By: #### A DDONUAPLUS #### [place] [address] [place] Bilirubin,Urine Negative Normal Negative [facility] Comment on above: Order Comment: Name Collection Type:: Clean-Voided Midstream Performed By: #### A DDONUAPLUS #### [place] [address] [place] Color (U) Yellow Normal Yellow [facility] Comment on above: Order Comment: Name Collection Type:: Clean-Voided Midstream Performed By: #### A DDONUAPLUS #### [place] [address] [place] Glucose Ql (U) Normal Normal Normal [facility] Comment on above: Order Comment: Name Collection Type:: Clean-Voided Midstream Performed By: #### A DDONUAPLUS #### [place] [address] [place] Hyaline Casts,Urine None Seen Normal 0-8 [facility] Comment on above: Order Comment: Name Collection Type:: Clean-Voided Midstream Result Comment: PERF ORMED BY: [place] [address] PATHOLOGIST SUSTAINABILITY COMMUNICATOR TROY SIGALA M.D. Performed By: #### A DDONUAPLUS #### [place] [address] [place] Ketones Ql (U) Negative Normal Negative [facility] Comment on above: Order Comment: Name Collection Type:: Clean-Voided Midstream Performed By: #### A DDONUAPLUS #### [address] Leukocyte esterase Test strip Ql (U) Negative Normal Negative [facility] Comment on above: Order Comment: Name Collection Type:: Clean-Voided Midstream Performed By: #### A DDONUAPLUS #### [place] [address] [place] Nitrite,Urine Negative Normal Negative [facility] Comment on above: Order Comment: Name Collection Type:: Clean-Voided Midstream Performed By: #### A DDONUAPLUS #### [place] [address] [place] Occult Blood,Urine Negative Normal Negative [facility] Comment on above: Order Comment: Name Collection Type:: Clean-Voided Midstream Result Comment: PERF ORMED BY: [place] [address] PATHOLOGIST SUSTAINABILITY COMMUNICATOR TROY SIGALA M.D. Performed By: #### A DDONUAPLUS #### [place] [address] [place] pH (U) 5.5 [pH] Normal 5.0-9.0 [facility] Comment on above: Order Comment: Name Collection Type:: Clean-Voided Midstream Performed By: #### A DDONUAPLUS #### [place] [address] [place] Protein,Urine Negative Normal Negative [facility] Comment on above: Order Comment: Name Collection Type:: Clean-Voided Midstream Performed By: #### A DDONUAPLUS #### [address] RBC LM.HPF (Urine sed) [#/Area] 0 /[HPF] Normal 0-4 [facility] Comment on above: Order Comment: Name Collection Type:: Clean-Voided Midstream Performed By: #### A DDONUAPLUS #### [address] Specificy [place],Urine 1.014 Normal 1.001-1.030 [facility] Comment on above: Order Comment: Name Collection Type:: Clean-Voided Midstream Performed By: #### A DDONUAPLUS #### [address] Squamous Epithelial Cell,Urine None Seen Normal 0-2 [facility] Comment on above: Order Comment: Name Collection Type:: Clean-Voided Midstream Performed By: #### A DDONUAPLUS #### [address] Urobilinogen,Urine Normal Normal Normal [facility] Comment on above: Order Comment: Name Collection Type:: Clean-Voided Midstream Performed By: #### A DDONUAPLUS #### [address] WBC LM.HPF (Urine sed) [#/Area] 0 /[HPF] Normal 0-4 [facility] Comment on above: Order Comment: Name Collection Type:: Clean-Voided Midstream Performed By: #### A DDONUAPLUS #### [address] Lipaseon 04-09-2023 Lipase [Catalytic activity/Vol] 92.0 U/L High 11.0-82.0 [facility] Comment on above: Result Comment: PERF ORMED BY: [place] [address] PATHOLOGIST SUSTAINABILITY COMMUNICATOR TROY SIGALA M.D. Performed By: #### P TT, LIPASE, PT, CMP #### [address] Partial Thromboplastin Timeo n 04-09-2023 aPTT Coag (Bld) [Time] 30.9 s Normal 25.1-36.5 [facility] Comment on above: Result Comment: PERF ORMED BY: [place] [address] PATHOLOGIST SUSTAINABILITY COMMUNICATOR TROY SIGALA M.D. Performed By: #### P TT, LIPASE, PT, CMP #### [facility] [address] [place], [place] [address] [place] Prothrombin Time INRon 04-09 INR Coag (PPP) [Relative time] 1.0 {INR} Normal [facility] Comment on above: Result Comment: INR Therapeutic [...] #### P TT, LIPASE, PT, CMP #### [facility] [address] [place] [address] PT Coag (PPP) [Time] 11.9 s Normal 9.0-12.9 [facility] Comment on above: Performed By: #### P TT, LIPASE, PT, CMP #### [facility] [address] [place] [address] CNOVon 08-15-2022 CNOV Office Visit (DARÍO ) SAMIR CASTILLO ([id number]) 1955 M Date Time Provider Department 08/15/22 4:00 PM EBONY KAUFMAN During your visit today, we recorded the following information about you: Pulse Blood pressure Weight Height 61/minute 148/78 89.8 kg 1.676 m Ebony Kaufman DO 08/15/2022 5:31 PM Signed [facility] General Neurology Follow up/ Established patient visit Individuals who were included in, or assisted with the encounter were: Samir Castillo Ebony Kaufman DO Chief Complaint/Issues: Samir Castillo is a 67 year old male seen in the [facility] for General Neurology for: Follow-up Most Recent [...] tablet by (more content not included)... Normal [facility] CBC AUTO DIFFon 07-27-2022 BASO # 0.1 103/ul Normal 0.0-0.1 [facility] Comment on above: Performed By: #### C BC #### [facility] [address] [place] [address] Dr. Hattie Newsome Basophils/100 WBC (Bld) 0.8 % Normal 0.2-2.0 [facility] Comment on above: Performed By: #### C BC #### [facility] [address] [place] [address] Dr. Hattie Newsome EO # 0.3 103/ul Normal 0.0-0.7 [facility] Comment on above: Performed By: #### C BC #### [facility] [address] [place] [address] Dr. Hattie Newsome Eosinophils/100 WBC (Bld) 3.2 % Normal 0.9-7.0 [facility] Comment on above: Performed By: #### C BC #### [facility] [address] [place] [address] Dr. Hattie Newsome Erythrocyte distribution width (RBC) [Ratio] 14.3 % Normal 11.0-15.0 [facility] Comment on above: Performed By: #### C BC #### [facility] [address] [place] [address] Dr. Hattie Newsome Hematocrit (Bld) [Volume fraction] 39.7 % Critically low 42.0-54.0 [facility] Comment on above: Performed By: #### C BC #### [facility] [address] [place], [place] [id number] Dr. Hattie Newsome Hemoglobin (Bld) [Mass/Vol] 13.0 g/dL Critically low 14.0-18.0 [facility] Comment on above: Performed By: #### C BC #### [facility] [address] [place] [address] Dr. Hattie Newsome IG # 0.06 10e3/ul Critically high 0.00-0.03 [facility] Comment on above: Performed By: #### C BC #### [facility] [address] [place] [address] Dr. Hattie Newsome IG % 0.8 % Critically high 0.0-0.5 [facility] Comment on above: Performed By: #### C BC #### [facility] [address] [place] [address] Dr. Hattie Newsome LYMPH # 1.3 103/ul Normal 1.2-3.8 [facility] Comment on above: Performed By: #### C BC #### [facility] [address] [place] [address] Dr. Hattie Newsome Lymphocytes/100 WBC (Bld) 16.8 % Critically low 20.5-60.0 [facility] Comment on above: Performed By: #### C BC #### [facility] [address] [place] [address] Dr. Hattie Newsome MANUAL DIFF REQ NO Normal [facility] Comment on above: Performed By: #### C BC #### [facility] [address] [place] [address] Dr. Hattie Newsome MCH (RBC) [Entitic mass] 30.5 pg Normal 25.9-34.0 [facility] Comment on above: Performed By: #### C BC #### [facility] [address] [place] [address] Dr. Hattie Newsome MCHC (RBC) [Mass/Vol] 32.7 g/dL Normal 29.9-35.2 [facility] Comment on above: Performed By: #### C BC #### [facility] [address] [place] [address] Dr. Hattie Newsome MCV (RBC) [Entitic vol] 93.2 fL Normal 80.0-94.0 [facility] Comment on above: Performed By: #### C BC #### [facility] [address] [place] [address] Dr. Hattie Newsome MONO # 0.5 103/ul Normal 0.3-0.8 [facility] Comment on above: Performed By: #### C BC #### [facility] [address] [place] [address] Dr. Hattie Newsome Monocytes/100 WBC (Bld) 7.0 % Normal 1.7-12.0 [facility] Comment on above: Performed By: #### C BC #### [facility] [address] [place] [address] Dr. Hattie Newsome NEUT # 5.5 103/ul Normal 1.4-6.5 [facility] Comment on above: Performed By: #### C BC #### [facility] [address] [place] [address] Dr. Hattie Newsome Neutrophils/100 WBC (Bld) 71.4 % Normal 43.0-75.0 [facility] Comment on above: Performed By: #### C BC #### [facility] [address] [place] [address] Dr. Hattie Newsome Platelet mean volume (Bld) [Entitic vol] 9.4 fL Critically low 9.5-13.5 [facility] Comment on above: Performed By: #### C BC #### [facility] [address] [place] [address] Dr. Hattie Newsome PLT 169 103/ul Normal 150-450 [facility] Comment on above: Performed By: #### C BC #### [facility] [address] [place] [address] Dr. Hattie Newsome RBC 4.26 106/ul Critically low 4.70-6.10 [facility] Comment on above: Performed By: #### C BC #### [facility] [address] [place] [address] Dr. Hattie Newsome WBC 7.7 103/ul Normal 4.0-11.0 [facility] Comment on above: Performed By: #### C BC #### [facility] [address] [place] [address] [address] Hattie Newsome LIPID PROFILEon 07-27-2022 CHOL-HDL RATIO NORM SEE BELOW Normal [facility] Comment on above: Result Comment: 3.3 - 4.4 LOW RISK 4.4 - 7.1 AVERAGE RISK 7.1 - 11.0 MODERATE RISK >11.0 HIGH RISK Performed By: #### L IPID #### [facility] [address] [place] [address] [address] Hattie Newsome Cholesterol [Mass/Vol] 131 mg/dL Normal <=200 [facility] Comment on above: Performed By: #### L IPID #### [facility] [address] [place] [address] [address] Hattie Newsome Cholesterol in HDL [Mass/Vol] 40 mg/dL Normal 40-60 [facility] Comment on above: Performed By: #### L IPID #### [facility] [address] [place] [address] [address] Hattie Newsome Cholesterol in LDL [Mass/Vol] 64.6 mg/dL Normal [facility] Comment on above: Performed By: #### L IPID #### [facility] [address] [place] [address] [address] Hattie Newsome Cholesterol.total/ Cholesterol in HDL [Mass ratio] 3.3 {ratio} Normal [facility] Comment on above: Performed By: #### L IPID #### [facility] [address] [place] [address] [address] Hattie Newsome HDL NORMAL > or = 60 mg/dl - LO W CARDIOVASCULAR RISK <40 mg/dl - HIGH CARDIOVASCULAR RISK Normal [facility] Comment on above: Performed By: #### L IPID #### [facility] [address] [place] [address] [address] Hattie Newsome LDL CALC NORMAL SEE BELOW Normal [facility] Comment on above: Result Comment: <100 mg/dl OPTIMAL 100 - 129 mg/dl NEAR OR ABOVE OPTIMAL 130 - 159 mg/dl BORDERLINE HIGH 160 - 189 mg/dl HIGH >190 mg/dl VERY HIGH Performed By: #### L IPID #### [facility] [address] [place] [address] Dr. Hattie Newsome Triglyceride [Mass/Vol] 132 mg/dL Normal <=150 [facility] Comment on above: Performed By: #### L IPID #### [facility] [address] [place] [address] Dr. Hattie Newsome VLDL CALC 26.4 mg/dL Normal [facility] Comment on above: Performed By: #### L IPID #### [facility] [address] [place] [address] Dr. Hattei Newsome PARATHYROID HORMONE- RELATED PEPTIDEon 07-15-2022 PTHrP (PTH-Related Peptide) <2.0 Normal [facility] Comment on above: Result Comment: This test was developed and its performance characteristics determined by [employer]. It has not been cleared or approved [...] laboratory. Performed By: #### P THP #### [facility] [address] [place] [address] Dr. Hattie Newsome CBC AUTO DIFFon 07-07-2022 BASO # 0.1 103/ul Normal 0.0-0.1 [facility] Comment on above: Performed By: #### U BLANCA, CMP, MG #### [facility] [address] [place] [address] Dr. Hattie Newsome Basophils/100 WBC (Bld) 0.9 % Normal 0.2-2.0 [facility] Comment on above: Performed By: #### U BLANCA, CMP, MG #### [facility] [address] [place] [address] Dr. Hattie Newsome EO # 0.2 103/ul Normal 0.0-0.7 [facility] Comment on above: Performed By: #### U BLANCA, CMP, MG #### [facility] [address] [place] [address] [address] Hattie Newsome Eosinophils/100 WBC (Bld) 3.4 % Normal 0.9-7.0 [facility] Comment on above: Performed By: #### U BLANCA, CMP, MG #### [facility] [address] [place] [address] Dr. Hattie Newsome Erythrocyte distribution width (RBC) [Ratio] 14.5 % Normal 11.0-15.0 [facility] Comment on above: Performed By: #### U BLANCA, CMP, MG #### [facility] [address] [place] [address] Dr. Hattie Newsome Hematocrit (Bld) [Volume fraction] 40.1 % Critically low 42.0-54.0 [facility] Comment on above: Performed By: #### U BLANCA, CMP, MG #### [facility] [address] [place] [address] Dr. Hattie Newsome Hemoglobin (Bld) [Mass/Vol] 13.6 g/dL Critically low 14.0-18.0 [facility] Comment on above: Performed By: #### U BLANCA, CMP, MG #### [facility] [address] [place] [address] Dr. Hattie Newsome IG # 0.04 10e3/ul Critically high 0.00-0.03 [facility] Comment on above: Performed By: #### U BLANCA, CMP, MG #### [facility] [address] [place] [address] Dr. Hattie Newsome IG % 0.6 % Critically high 0.0-0.5 [facility] Comment on above: Performed By: #### U BLANCA, CMP, MG #### [facility] [address] [place] [address] Dr. Hattie Newsome LYMPH # 0.9 103/ul Critically low 1.2-3.8 [facility] Comment on above: Performed By: #### U BLANCA, CMP, MG #### [facility] [address] [place] [address] Dr. Hattie Newsome Lymphocytes/100 WBC (Bld) 13.1 % Critically low 20.5-60.0 [facility] Comment on above: Performed By: #### U BLANCA, CMP, MG #### [facility] [address] [place] [address] Dr. Hattie Newsome MANUAL DIFF REQ NO Normal [facility] Comment on above: Performed By: #### U BLANCA, CMP, MG #### [facility] [address] [place] [address] Dr. Hattie Newsome MCH (RBC) [Entitic mass] 30.9 pg Normal 25.9-34.0 [facility] Comment on above: Performed By: #### U BLANCA, CMP, MG #### [facility] [address] [place] [address] Dr. Hattie Newsome MCHC (RBC) [Mass/Vol] 33.9 g/dL Normal 29.9-35.2 [facility] Comment on above: Performed By: #### U BLANCA, CMP, MG #### [facility] [address] [place] [address] Dr. Hattie Newsome MCV (RBC) [Entitic vol] 91.1 fL Normal 80.0-94.0 [facility] Comment on above: Performed By: #### U BLANCA, CMP, MG #### [facility] [address] [place] [address] Dr. Hattie Newsome MONO # 0.3 103/ul Normal 0.3-0.8 [facility] Comment on above: Performed By: #### U BLANCA, CMP, MG #### [facility] [address] [place] [address] Dr. Hattie Newsome Monocytes/100 WBC (Bld) 5.1 % Normal 1.7-12.0 [facility] Comment on above: Performed By: #### U BLANCA, CMP, MG #### [facility] [address] [place] [address] Dr. Hattie Newsome NEUT # 5.0 103/ul Normal 1.4-6.5 [facility] Comment on above: Performed By: #### U BLANCA, CMP, MG #### [facility] [address] [address] [address] Hattie Newsome Neutrophils/100 WBC (Bld) 76.9 % Critically high 43.0-75.0 [facility] Comment on above: Performed By: #### U BLANCA, CMP, MG #### [facility] [address] [address] [address] Hattie Newsome Platelet mean volume (Bld) [Entitic vol] 9.0 fL Critically low 9.5-13.5 [facility] Comment on above: Performed By: #### U BLANCA, CMP, MG #### [facility] [address] [address] [address] Hattie Newsome PLT 160 103/ul Normal 150-450 [facility] Comment on above: Performed By: #### U BLANCA, CMP, MG #### [facility] [address] [place] [address] Dr. Hattie Newsome RBC 4.40 106/ul Critically low 4.70-6.10 [facility] Comment on above: Performed By: #### U BLANCA, CMP, MG #### [facility] [address] [address] [address] Hattie Newsome WBC 6.5 103/ul Normal 4.0-11.0 [facility] Comment on above: Performed By: #### U BLANCA, CMP, MG #### [facility] [address] [place] [address] Dr. Hattie Newsome MAGNESIUMon 07-07-2022 Magnesium [Mass/Vol] 1.8 mg/dL Normal 1.8-2.4 [facility] Comment on above: Performed By: #### U BLANCA, CMP, MG #### [facility] [address] [address] [address] Hattie Newsome PROF 14(COMP METB)on 022 Albumin [Mass/Vol] 3.9 g/dL Normal 3.4-5.0 [facility] Comment on above: Performed By: #### U BLANCA, CMP, MG #### [facility] [address] [place] [address] Dr. Hattie Newsome Albumin/Globulin [Mass ratio] 1.0 {ratio} Normal [facility] Comment on above: Performed By: #### U BLANCA, CMP, MG #### [facility] [address] [address] [address] Hattie Newsome ALP [Catalytic activity/Vol] 136 U/L Critically high 46-116 [facility] Comment on above: Performed By: #### U BLANCA, CMP, MG #### [facility] [address] [address] [address] Hattie Newsome ALT [Catalytic activity/Vol] 122 U/L Critically high 16-63 [facility] Comment on above: Performed By: #### U BLANCA, CMP, MG #### [facility] [address] [place] [address] Dr. Hattie Newsome Anion gap [Moles/Vol] 12.4 mmol/L Normal [facility] Comment on above: Performed By: #### U BLANCA, CMP, MG #### [facility] [address] [address] [address] Hattie Newsome AST [Catalytic activity/Vol] 72 U/L Critically high 15-37 [facility] Comment on above: Performed By: #### U BLANCA, CMP, MG #### [facility] [address] [place] [address] Dr. Hattie Newsome Bilirubin [Mass/Vol] 0.5 mg/dL Normal 0.2-1.0 [facility] Comment on above: Performed By: #### U BLANCA, CMP, MG #### [facility] [address] [address] [address] Hattie Newsome Calcium [Mass/Vol] 9.1 mg/dL Normal 8.5-10.1 [facility] Comment on above: Performed By: #### U BLANCA, CMP, MG #### [facility] [address] [place] [address] Dr. Hattie Newsome Chloride [Moles/Vol] 106 mmol/L Normal 98-107 [facility] Comment on above: Performed By: #### U BLANCA, CMP, MG #### [facility] [address] [place] [address] Dr. Hattie Newsome CO2 [Moles/Vol] 25.9 mmol/L Normal 21.0-32.0 [facility] Comment on above: Performed By: #### U BLANCA, CMP, MG #### [facility] [address] [address] [address] Hattie Newsome Creatinine [Mass/Vol] 1.54 mg/dL Critically high 0.70-1.30 [facility] Comment on above: Performed By: #### U BLANCA, CMP, MG #### [facility] [address] [address] [address] Hattie Newsome EGFR-AF MARTINIQUAIS 55 mL/min/1.73m2 Critically low >=60 [facility] Comment on above: Performed By: #### U BLANCA, CMP, MG #### [facility] [address] [address] [address] Hattie Newsome EGFR-NON AF MARTINIQUAIS 45 mL/min/1.73m2 Critically low >=60 [facility] Comment on above: Performed By: #### U BLANCA, CMP, MG #### [facility] [address] [address] [address] Hattie Newsome Globulin (S) [Mass/Vol] 4.0 g/dL Normal [facility] Comment on above: Performed By: #### U BLANCA, CMP, MG #### [facility] [address] [address] [address] Hattie Newsome Glucose [Mass/Vol] 104 mg/dL Normal 74-106 [facility] Comment on above: Performed By: #### U BLANCA, CMP, MG #### [facility] [address] [address] [address] Hattie Newsome Potassium [Moles/Vol] 4.3 mmol/L Normal 3.5-5.1 [facility] Comment on above: Performed By: #### U BLANCA, CMP, MG #### [facility] [address] [address] [address] Hattie Newsome Protein [Mass/Vol] 7.9 g/dL Normal 6.4-8.2 [facility] Comment on above: Performed By: #### U BLANCA, CMP, MG #### [facility] [address] [address] [address] Hattie Newsome Sodium [Moles/Vol] 140 mmol/L Normal 136-145 [facility] Comment on above: Performed By: #### U BLANCA, CMP, MG #### [facility] [address] [place] [address] Dr. Hattie Newsome Urea nitrogen [Mass/Vol] 14.0 mg/dL Normal 7.0-18.0 [facility] Comment on above: Performed By: #### U BLANCA, CMP, MG #### [facility] [address] [place] [address] Dr. Hattie Newsome Urea nitrogen/Creatinin e [Mass ratio] 9.1 mg/mg Normal [facility] Comment on above: Performed By: #### U BLANCA, CMP, MG #### [facility] [address] [place] [address] Dr. Hattie Newsome UA RANDOMon 07-07-2022 Bilirubin Ql (U) Negative Normal NEGATIVE [facility] Comment on above: Performed By: #### U A #### [facility] [address] [place] [address] Dr. Hattie Newsome Clarity (U) CLEAR Normal CLEAR [facility] Comment on above: Performed By: #### U A #### [facility] [address] [place] [address] Dr. Hattie Newsome Color (U) YELLOW Normal YELLOW [facility] Comment on above: Performed By: #### U A #### [facility] [address] [place] [address] Dr. Hattie Newsome Glucose Ql (U) Negative Normal NEGATIVE [facility] Comment on above: Performed By: #### U A #### [facility] [address] [place] [address] Dr. Hattie Newsome Hemoglobin Ql (U) Negative Normal NEGATIVE [facility] Comment on above: Performed By: #### U A #### [facility] [address] [place] [address] Dr. Hattie Newsome Ketones Ql (U) Negative Normal NEGATIVE [facility] Comment on above: Performed By: #### U A #### [facility] [address] [address] [address] Hattie Newsome LEUKOCYTES Negative Normal NEGATIVE [facility] Comment on above: Performed By: #### U A #### [facility] [address] [place] [address] Dr. Hattie Newsome Nitrite Ql (U) Negative Normal NEGATIVE [facility] Comment on above: Performed By: #### U A #### [facility] [address] [place] [address] Dr. Hattie Newsome pH (U) 5.5 [pH] Normal 5-9 [facility] Comment on above: Performed By: #### U A #### [facility] [address] [place] [address] Dr. Hattie Newsome SPEC GRAVITY >=1.030 Abnormal 1.005-<=1.025 [facility] Comment on above: Performed By: #### U A #### [facility] [address] [place] [address] Dr. Hattie Newsome UA PROTEIN Negative Normal NEGATIVE/ TRACE [facility] Comment on above: Performed By: #### U A #### [facility] [address] [place] [address] Dr. Hattie Newsome Urobilinogen Qn (U) 1.0 {Xavier'U}/dL Normal 0.2 - 1.0 [facility] Comment on above: Performed By: #### U A #### [facility] [address] [place] [address] Dr. Hattie Newsome URIC ACID SERUMon 07-07-2022 Urate [Mass/Vol] 6.8 mg/dL Normal 3.5-7.2 [facility] Comment on above: Performed By: #### U BLANCA, CMP, MG #### [facility] [address] [place] [address] Dr. Hattie Newsome URINE T PROTEIN CREAT RATIOo n 07-07-2022 Protein (U) [Mass/Vol] 27.5 mg/dL Critically high <=12.0 [facility] Comment on above: Performed By: #### U RTPCR #### [facility] [address] [address] [address] Hattie Newsome UR PROT CREAT RAT 0.15 Normal [facility] Comment on above: Performed By: #### U RTPCR #### [facility] [address] [address] [address] Hattie Newsome URINE CREAT 187.29 mg/dL Normal 20.00-300.00 [facility] Comment on above: Performed By: #### U RTPCR #### [facility] [address] [place] [address] Dr. Hattie Newsome VITAMIN D 25 OHon 07-07-2022 VIT D 25-OH 81.5 ng/mL Normal [facility] Comment on above: Performed By: #### V ITAD #### [facility] [address] [place] [address] Dr. Hattie Newsome VIT D RANGES SEE BELOW Normal [facility] Comment on above: Result Comment: <20 ng/mL Vit D deficient 20 - <30 ng/mL Vit D insufficient 30 - 100 ng/mL Vit D sufficient >100 ng/mL Potential Toxicity Performed By: #### V ITAD #### [facility] [address] [place] [address] Dr. 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 - omega 9-gvl-sib-fish oil (FISH OIL) 100-160-1,000 mg cap Take by mouth. - methylPREDNISolone (MEDROL, TEAGAN,) 4 mg Dose-Pack Take as instructed Problem List As Of Date 05/01/2022 Noted Resolved Dyspnea and respiratory abnormalities [R06.00, *02/09/2022 Recurrent major depression in partial remission*04/12/2022 MCI (mild cognitive impairment) [G31.84] 04/12/2022 Encounter Status:Closed by MALINDA BARRAGAN on 05/01/22 [facility] CNOVon 04-10-2022 CNOV Office Visit (NEADFV ) CASTILLOSAMIR FISCHER ([id number]) 1955 M Date Time Provider Department 04/10/22 10:00 AM EBONY KAUFMAN During your visit today, we recorded the following information about you: Pulse Blood pressure Weight Height 57/minute 146/69 89.7 kg 1.651 m Ebony Kaufman DO 04/12/2022 12:26 AM Signed [facility] General Neurology New Patient Evaluation Consulting Provider: Jessie Lay [id number] [facility] [address] Individuals who were included in, or assisted with the encounter were: Samir Jose Kaufman DO Chief Complaint/Issues: Samir Castillo is a 66 year old male seen in the [facility] for General Neurology for: Memory HPI: Here [...] notices problems with both short term and intermodal customer service memory Language: yes, word finding problems. Knows [...] TAKE 1 TABLET (more content not included)... 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 Brain MRI (02/08/2022) noted severe generalized volume [...] interest in transferring his psychiatric care to [facility]. 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 CURRENT MEDICATIONS, PER RECORDS (MOWER SHARPENER-relevant medications in bold): Medication albuterol HFA (PROVENTIL [...] Multivitamins-Minerals -Lutein (MULTIVITAMIN 50 PLUS) tab omega 6-gno-lmi-fish oil (FISH OIL) 100-160-1,000 mg cap methylPREDNISolone (MEDROL, TEAGAN,) 4 mg Dose-Pack FAMILY HISTORY: patient reported (more content not included)... Normal [facility] ECHOCARDIO M/2D COMPLETEon 0 02-21-2022 ECHOCARDIO M/2D COMPLETE Patient: KEL CASTILLO Exam Date: 02/21/2022 : 1955 Gender:M Ordering : DR SARAH TOLLIVER M.D. Admission #: [id number] Family : Order #: [id number] CLICK HERE TO VIEW EXAM ECHOCARDIOGRAM REPORT [...] Yepez M.D. on 02/21/2022 at 16:31 Normal [facility] CNOVon 02-09-2022 CNOV Office Visit (PMNA11 ) SAMIR CASTILLO ([id number]) 1955 M Date Time Provider Department 02/09/22 11:15 AM PRINCE ABY PMNA11 During your visit today, we recorded the following information about you: Temperature Pulse Respiration Blood pressure 97.5 degrees 65/minute 18/minute 135/64 Weight Height 89.9 kg 1.651 m Marisol Davis MD 02/15/2022 1:05 PM Signed Mr. Castillo is a 66 year old male who presents to the [facility] Respiratory [place]. Consultation requested for an opinion regarding SOB. 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 omega 7-fqy-xqt-fish oil (FISH OIL) 100-160-1,000 mg cap Take by mouth. methylPREDNISolone (MEDROL, TEAGAN,) 4 mg Dose-Pack Take as instructed PHYSICAL EXAM: Physical Exam On room air, able to complete sentences, no LE extremity edema No cervical or axillary LAD Chest: Air entry reduced in the lung bases, no wheeze (more content not included)... Normal [facility] MRI 3D POST PROCESSINGon MRI 3D POST PROCESSING * * *Final Report* * * DATE OF EXAM: Feb 08 2022 4:45PM [facility] 0280 - MRI 3D POST PROCESSING / [...] = Focal Lesions 2 = Beginning of Carpio 3 = Diffuse Involvement of Entire Region [...] results from the analysis charts for details. Pickling Solution Maker: TERRENCE Transcribe Date/Time: Feb 08 2022 4:54P Dictated by : TINO AUGUSTE MD This examination was interpreted and the report reviewed and electronically signed by: TINO AUGUSTE MD on Feb 08 2022 5:41PM EST [id number] Normal [facility] MRI BRAIN WO IVCONon 022 MRI BRAIN [...] = Focal Lesions 2 = Beginning of Carpio 3 = Diffuse Involvement of Entire Region [...] results from the analysis charts for details. Pickling Solution Maker: PSCB Transcribe Date/Time: Feb 08 2022 4:54P Dictated by : TINO AUGUSTE MD This examination was interpreted and the report reviewed and electronically signed by: TINO AUGUSTE MD on Feb 08 2022 5:41PM EST [id number] Normal [facility] Panel Informationon 02-[address] [facility] CNOVon 12-22-2021 CNOV Office Visit (NEADFV ) SAMIR CASTILLO ([id number]) 1955 M Date Time Provider Department 12/22/21 9:00 AM JESSIE LAY During your visit today, we recorded the following information about you: Pulse Blood pressure Weight Height 59/minute 153/70 87.7 kg 1.651 m Jessie Lay MD 12/22/2021 10:51 AM Signed [facility] Neurology New Patient Evaluation Consulting Provider: SELF Individuals who were included in, or assisted with the encounter were: ? Samir Castillo ? Jessie Lay MD Chief Complaint/Issues: Samir Castillo is a 66 year old male seen in the [facility] for General Neurology for: 1. Memory loss. [...] notices problems with both short term and intermodal customer service memory Language: yes, word finding problems. Knows [...] TABLET BY MOUTH (more content not included)... [facility] Donnell 12-21-2021 ITZEL Telephone (NIQ) SAMIR CASTILLO ([id number]) 1955 M Date Time Provider Department 12/21/21 UNKNOWN NIQ During your visit today, we recorded the following information about you: Luna Sandoval 12/21/2021 11:49 AM Signed [facility] referral from Dr. Milo Hurtado, [place], [place] DX: increasing amnesia not explained as part of depression and anxiety RFV: Evaluate and treat Scheduling: Patient accepted consult with Dr. Jessie Lay on 12/22/2021 External records will be uploaded to chart in Scanned Docs. Allergies As of Date: 12/21/2021 (Not on File) Date Reviewed: Never Reviewed Reason for Visit: Received Outside Medical Records [0169] Cmt: External referral to Brain [facility] Problem List As Of Date: 12/21/2021 (None) Encounter Status:Closed by LUNA SANDOVAL on 12/21/21 Normal [facility] BASIC METABOLIC PANELon - Calcium [Mass/Vol] 9.2 mg/dL Normal 8.6-10.3 [facility] Comment on above: Order Comment: No: D o not add to previous draw Performed By: #### 0 0071, [id number] #### [facility] [address] [place] [address], [place] Chloride [Moles/Vol] 108 mmol/L High 98-107 [facility] Comment on above: Order Comment: No: D o not add to previous draw Performed By: #### 0 0071, [id number] #### [facility] [address] [place] [address], [place] CO2 [Moles/Vol] 26 mmol/L Normal 21-31 [facility] Comment on above: Order Comment: No: D o not add to previous draw Performed By: #### 0 0071, [id number] #### [facility] [address] [place] [address], [place] Creatinine [Mass/Vol] 1.64 mg/dL High 0.70-1.30 [facility] Comment on above: Order Comment: No: D o not add to previous draw Performed By: #### 0 0071, 74847 #### [facility] [address] [place] [address], [place] GFR/1.73 sq M predicted among blacks MDRD (S/P/Bld) [Vol rate/Area] 51 ml/min/1.73sq m Abnormal >60 [facility] Comment on above: Order Comment: No: D o not add to previous draw Performed By: #### 0 0071, [id number] #### [facility] [address] [place] [address], [place] GFR/1.73 sq M predicted among non-blacks MDRD (S/P/Bld) [Vol rate/Area] 42 ml/min/1.73sq m Abnormal >60 [facility] Comment on above: Order Comment: No: D o not add to previous draw Performed By: #### 0 0071, [id number] #### [facility] [address] [place] [address], [place] Glucose [Mass/Vol] 100 mg/dL Normal 70-100 [facility] Comment on above: Order Comment: No: D o not add to previous draw Performed By: #### 0 0071, [id number] #### [facility] [address] [place] [address], [place] Potassium [Moles/Vol] 4.5 mmol/L Normal 3.5-5.1 [facility] Comment on above: Order Comment: No: D o not add to previous draw Performed By: #### 0 0071, [id number] #### [facility] [address] [place] [address], [place] Sodium [Moles/Vol] 139 mmol/L Normal 136-145 [facility] Comment on above: Order Comment: No: D o not add to previous draw Performed By: #### 0 0071, 26105 #### [facility] [address] Urea nitrogen [Mass/Vol] 15 mg/dL Normal 7-25 [facility] Comment on above: Order Comment: No: D o not add to previous draw Performed By: #### 0 0071, 76572 #### [facility] [address] [place] [address], [facility] CBC W/DIFFon 10-08-2019 ABS BASOPHILS 0.1 10*3/uL Normal 0.0-0.2 The [facility] Comment on above: Order Comment: No: D o not add to previous draw Performed By: #### 0 0071, 06946 #### [facility] [address] ABS IMM GRANS 0.1 10*3/uL Normal 0.0-0.2 The [facility] Comment on above: Order Comment: No: D o not add to previous draw Performed By: #### 0 0071, 38498 #### [facility] [address] [facility]. [address] ABS NEUTROPHILS 5.1 10*3/uL Normal 1.6-7.[address] [facility] Comment on above: Order Comment: No: D o not add to previous draw Performed By: #### 0 0071, 82607 #### [facility] [address] [facility]. [address] Basophils/100 WBC (Bld) 0.8 % Normal 0.0-1.0 [facility] Comment on above: Order Comment: No: D o not add to previous draw Performed By: #### 0 0071, 64558 #### [facility] [address] [place] [address], [facility] Eosinophils (Bld) [#/Vol] 0.3 10*3/uL Normal 0.0-0.5 [facility] Comment on above: Order Comment: No: D o not add to previous draw Performed By: #### 0 0071, 02412 #### [facility] [address] [place] [address], [facility] Eosinophils/100 WBC (Bld) 3.9 % Normal 0.0-6.0 [facility] Comment on above: Order Comment: No: D o not add to previous draw Performed By: #### 0 0071, [id number] #### [facility] [address] [place] [address], [facility] Erythrocyte distribution width (RBC) [Ratio] 14.3 % Normal 11.5-15.0 [facility] Comment on above: Order Comment: No: D o not add to previous draw Performed By: #### 0 0071, 68878 #### [facility] [address] [place] [id number], [facility] Hematocrit (Bld) [Volume fraction] 39.0 % Normal 39.0-50.0 [facility] [place] [facility] Comment on above: Order Comment: No: D o not add to previous draw Performed By: #### 0 70, 09585 #### [facility] [address] [place] [address], [facility] Hemoglobin (Bld) [Mass/Vol] 12.3 g/dL Low 13.0-17.0 [facility] Comment on above: Order Comment: No: D o not add to previous draw Performed By: #### 0 0071, 66431 #### [facility] [address] [place] [address], [facility] IMMATURE GRANS 0.8 % Normal 0.0-1.0 The [facility] Comment on above: Order Comment: No: D o not add to previous draw Performed By: #### 0 007, 13440 #### [facility] [address] [place] [address], [facility] Lymphocytes (Bld) [#/Vol] 1.2 10*3/uL Normal 1.2-4.0 [facility] Comment on above: Order Comment: No: D o not add to previous draw Performed By: #### 0 0071, 19857 #### [facility] [address] [facility] [place] [address], [facility] Lymphocytes/100 WBC (Bld) 16.1 % Low 20.0-45.0 [facility] Comment on above: Order Comment: No: D o not add to previous draw Performed By: #### 0 0071, 14795 #### [facility] [address] [facility] [place] [address], [facility] MCH (RBC) [Entitic mass] 29.9 pg Normal 27.0-33.0 [facility] Comment on above: Order Comment: No: D o not add to previous draw Performed By: #### 0 0071, 04659 #### [facility] [address] [address], [facility] MCHC (RBC) [Mass/Vol] 31.5 g/dL Low 32.0-35.0 [facility] Comment on above: Order Comment: No: D o not add to previous draw Performed By: #### 0 0071, 87435 #### [facility] [address] [address], [facility] MCV (RBC) [Entitic vol] 94.9 fL Normal 82.0-98.0 [facility] Comment on above: Order Comment: No: D o not add to previous draw Performed By: #### 0 0071, 12225 #### [facility] [address] [address], [facility] Monocytes (Bld) [#/Vol] 0.5 10*3/uL Normal 0.1-1.0 [facility] Comment on above: Order Comment: No: D o not add to previous draw Performed By: #### 0 0071, 00839 #### [facility] [address] [place] [address], [facility] MONOS 6.3 % Normal 5.0-12.0 [facility] Comment on above: Order Comment: No: D o not add to previous draw Performed By: #### 0 0071, 81284 #### [facility] [address] [place] [address], [facility] Neutrophils/100 WBC (Bld) 72.1 % High 40.0-72.0 [facility] Comment on above: Order Comment: No: D o not add to previous draw Performed By: #### 0 0071, 72956 #### [facility] [address] [place] [address], [place] Nucleated RBC/100 WBC (Bld) [Ratio] 0 % Normal 0-0 [facility] Comment on above: Order Comment: No: D o not add to previous draw Performed By: #### 0 0071, 41930 #### [facility] [address] [place] [address], [facility] PLAT CNT 168 10*3/uL Normal 150-400 The [facility] Comment on above: Order Comment: No: D o not add to previous draw Performed By: #### 0 0071, 91742 #### [facility] [address] [place] [address], [facility] RBC (Bld) [#/Vol] 4.11 10*6/uL Low 4.20-5.70 [facility] Comment on above: Order Comment: No: D o not add to previous draw Performed By: #### 0 0071, 91668 #### [facility] [address] [place] [address], [place] WBC (Bld) [#/Vol] 7.13 10*3/uL Normal 4.00-10.60 [facility] Comment on above: Order Comment: No: D o not add to previous draw Performed By: #### 0 0071, 93579 #### [facility] [address] US ABDOMEN LIMITED 020 US ABDOMEN LIMITED [facility] Department of Radiology [address] [place] [address] ======== Patient Name: KEL CASTILLO : 1955 Sex: M Age: Race: White Pt. Location: [id number] Patient Status: I Ordered Date: 10/08/2019 9:30:00 [...] collection. Electronically signed: Brandy Wilson. Transcribed by: [email or web address], User Resident: BRANDY WILSON Electronically Signed by: BRANDY WILSON @ 10/08/2019 10:13 AM I personally read this/these film(s) with this resident Normal [facility] Comment on above: Order Comment: No: D o not add to previous draw BASIC METABOLIC PANELon 09-13 Calcium [Mass/Vol] 8.7 mg/dL Normal 8.6-10.3 [facility] Comment on above: Order Comment: No: D o not add to previous draw Performed By: #### 0 0071, 24155 #### [facility] [address] [place] [address], [place] Chloride [Moles/Vol] 111 mmol/L High 98-107 [facility] Comment on above: Order Comment: No: D o not add to previous draw Performed By: #### 0 0071, 85186 #### [facility] [address] [place] [address], [place] CO2 [Moles/Vol] 28 mmol/L Normal 21-31 [facility] Comment on above: Order Comment: No: D o not add to previous draw Performed By: #### 0 0071, 02468 #### [facility] [address] [place] [address], [place] Creatinine [Mass/Vol] 1.59 mg/dL High 0.70-1.30 [facility] Comment on above: Order Comment: No: D o not add to previous draw Performed By: #### 0 0071, 92929 #### [facility] [address] [place] [address], [place] GFR/1.73 sq M predicted among blacks MDRD (S/P/Bld) [Vol rate/Area] 53 ml/min/1.73sq m Abnormal >60 The [facility] Comment on above: Order Comment: No: D o not add to previous draw Performed By: #### 0 0071, 70290 #### [facility] [address] [place] [address], [facility] GFR/1.73 sq M predicted among non-blacks MDRD (S/P/Bld) [Vol rate/Area] 44 ml/min/1.73sq m Abnormal >60 The [facility] Comment on above: Order Comment: No: D o not add to previous draw Performed By: #### 0 0071, 51206 #### [facility] [address] [place] [address], [place] Glucose [Mass/Vol] 99 mg/dL Normal 70-100 The [facility] Comment on above: Order Comment: No: D o not add to previous draw Performed By: #### 0 0071, 87901 #### [facility] [address] [place] [address], [place] Potassium [Moles/Vol] 4.2 mmol/L Normal 3.5-5.1 [facility] Comment on above: Order Comment: No: D o not add to previous draw Performed By: #### 0 0071, 01716 #### [facility] [address] [place] [address], [place] Sodium [Moles/Vol] 142 mmol/L Normal 136-145 [facility] Comment on above: Order Comment: No: D o not add to previous draw Performed By: #### 0 0071, 10861 #### [facility] [address] [place] [address], [place] Urea nitrogen [Mass/Vol] 16 mg/dL Normal 7-25 [facility] Comment on above: Order Comment: No: D o not add to previous draw Performed By: #### 0 0071, 35769 #### [facility] [address] [place] [address], [facility] Cardiovascular Lab Reporton 10-07-2019 Cardiovascular Lab Report [facility] Patient Name: Jose [facility] Kel MR #: [id number] Department of Physician: Shaji Juarez M.D. Division of Service Date: 10/07/2019 Cardiology Birthdate: 1955 Adult Cardiovascular Room #: [id number] [facility] [address] [place] [address] Cardiovascular Laboratory Report FINAL IMPRESSIONS: 1. Severe 3-vessel [place] coronary artery disease. 2. A 2/3 bypass [...] on the anatomic and fluoroscopic landmarks. A 6-Sinhala 11 cm sheath was inserted. Limited femoral [...] Tolliver M.D. Date Trans: 10/07/2019 02:55 P/mmo [id number] cc: Priyank Hendrickson M.D. [address] [place] [id number] Nayana Bledsoe D. [address] [place] [address] Normal [facility] MAGNESIUM BLOODon 10-07-2019 Magnesium [Mass/Vol] 2.1 mg/dL Normal 1.9-2.7 [facility] Comment on above: Order Comment: No: D o not add to previous draw Performed By: #### 0 0071, 54327 #### [facility] [address] [place] [address], [facility] BASIC METABOLIC PANELon 09-13 Calcium [Mass/Vol] 8.7 mg/dL Normal 8.6-10.3 [facility] Comment on above: Order Comment: No: D o not add to previous draw Performed By: #### 0 0071, 10230 #### [facility] [address] [place] [address], [place] Chloride [Moles/Vol] 110 mmol/L High 98-107 [facility] Comment on above: Order Comment: No: D o not add to previous draw Performed By: #### 0 0071, 50987 #### [facility] [address] [place] [address], [place] CO2 [Moles/Vol] 26 mmol/L Normal 21-31 The [facility] Comment on above: Order Comment: No: D o not add to previous draw Performed By: #### 0 0071, 62814 #### [facility] [address] [place] [address], [place] Creatinine [Mass/Vol] 1.92 mg/dL High 0.70-1.30 [facility] Comment on above: Order Comment: No: D o not add to previous draw Performed By: #### 0 0071, 52700 #### [facility] [address] [place] [address], [place] GFR/1.73 sq M predicted among blacks MDRD (S/P/Bld) [Vol rate/Area] 43 ml/min/1.73sq m Abnormal >60 The [facility] Comment on above: Order Comment: No: D o not add to previous draw Performed By: #### 0 0071, 15737 #### [facility] [address] [place] [address], [place] GFR/1.73 sq M predicted among non-blacks MDRD (S/P/Bld) [Vol rate/Area] 35 ml/min/1.73sq m Abnormal >60 [facility] Comment on above: Order Comment: No: D o not add to previous draw Performed By: #### 0 0071, 26095 #### [facility] [address] [place] [address], [place] Glucose [Mass/Vol] 96 mg/dL Normal 70-100 The [facility] Comment on above: Order Comment: No: D o not add to previous draw Performed By: #### 0 0071, 61759 #### [facility] [address] [place] [address], [place] Potassium [Moles/Vol] 4.4 mmol/L Normal 3.5-5.1 [facility] Comment on above: Order Comment: No: D o not add to previous draw Performed By: #### 0 0071, 50052 #### [facility] [address] [place] [address], [place] Sodium [Moles/Vol] 140 mmol/L Normal 136-145 The [facility] Comment on above: Order Comment: No: D o not add to previous draw Performed By: #### 0 0071, 51703 #### [facility] [address] [place] [address], [place] Urea nitrogen [Mass/Vol] 25 mg/dL Normal 7-25 [facility] Comment on above: Order Comment: No: D o not add to previous draw Performed By: #### 0 0071, 42047 #### [facility] [address] [place] [address], [place] Calcium [Mass/Vol] 8.8 mg/dL Normal 8.6-10.3 [facility] Comment on above: Order Comment: No: D o not add to previous draw Performed By: #### 0 0071 #### [facility] [address] [place] [address], [place] Chloride [Moles/Vol] 111 mmol/L High 98-107 [facility] Comment on above: Order Comment: No: D o not add to previous draw Performed By: #### 0 0071 #### [facility] [address] [place] [address], [place] CO2 [Moles/Vol] 25 mmol/L Normal 21-31 [facility] Comment on above: Order Comment: No: D o not add to previous draw Performed By: #### 0 0071 #### [facility] [address] [place] [address], [place] Creatinine [Mass/Vol] 1.94 mg/dL High 0.70-1.30 [facility] Comment on above: Order Comment: No: D o not add to previous draw Performed By: #### 0 0071 #### [facility] [address] [place] [address], [place] GFR/1.73 sq M predicted among blacks MDRD (S/P/Bld) [Vol rate/Area] 42 ml/min/1.73sq m Abnormal >60 [facility] Comment on above: Order Comment: No: D o not add to previous draw Performed By: #### 0 0071 #### [facility] [address] [place] [address], [place] GFR/1.73 sq M predicted among non-blacks MDRD (S/P/Bld) [Vol rate/Area] 35 ml/min/1.73sq m Abnormal >60 [facility] Comment on above: Order Comment: No: D o not add to previous draw Performed By: #### 0 0071 #### [facility] [address] [place] [address], [facility] Glucose [Mass/Vol] 102 mg/dL High 70-100 The [facility] Comment on above: Order Comment: No: D o not add to previous draw Performed By: #### 0 0071 #### [facility] [address] [place] [address], [facility] Potassium [Moles/Vol] 4.5 mmol/L Normal 3.5-5.1 [facility] Comment on above: Order Comment: No: D o not add to previous draw Performed By: #### 0 0071 #### [facility] [address] [place] [address], [facility] Sodium [Moles/Vol] 140 mmol/L Normal 136-145 The [facility] Comment on above: Order Comment: No: D o not add to previous draw Performed By: #### 0 0071 #### [facility] [address] [place] [address], [facility] Urea nitrogen [Mass/Vol] 27 mg/dL High 7-25 [facility] Comment on above: Order Comment: No: D o not add to previous draw Performed By: #### 0 0071 #### [facility] [address] [place] [address], [facility] CBC W/DIFFon 10-06-2019 ABS BASOPHILS 0.1 10*3/uL Normal 0.0-0.2 The [facility] Comment on above: Order Comment: No: D o not add to previous draw Performed By: #### 5 0103 #### [facility] [address] [place] [address], [facility] ABS IMM GRANS 0.1 10*3/uL Normal 0.0-0.2 The [facility] Comment on above: Order Comment: No: D o not add to previous draw Performed By: #### 5 0103 #### [facility] [address] [place] [address], [facility] ABS NEUTROPHILS 4.2 10*3/uL Normal 1.6-7.[address] [facility] Comment on above: Order Comment: No: D o not add to previous draw Performed By: #### 5 0103 #### [facility] [address] [place] [address], [facility] Basophils/100 WBC (Bld) 0.9 % Normal 0.0-1.0 [facility] Comment on above: Order Comment: No: D o not add to previous draw Performed By: #### 5 0103 #### [facility] [address] [place] [address], [place] Eosinophils (Bld) [#/Vol] 0.3 10*3/uL Normal 0.0-0.5 [facility] Comment on above: Order Comment: No: D o not add to previous draw Performed By: #### 5 0103 #### [facility] [address] [place] [address], [facility] Eosinophils/100 WBC (Bld) 4.8 % Normal 0.0-6.0 [facility] Comment on above: Order Comment: No: D o not add to previous draw Performed By: #### 5 0103 #### [facility] [address] [place] [address], [place] Erythrocyte distribution width (RBC) [Ratio] 14.3 % Normal 11.5-15.0 [facility] Comment on above: Order Comment: No: D o not add to previous draw Performed By: #### 5 0103 #### [facility] [address] [place] [address], [place] Hematocrit (Bld) [Volume fraction] 37.3 % Low 39.0-50.0 [facility] Comment on above: Order Comment: No: D o not add to previous draw Performed By: #### 5 0103 #### [facility] [address] [place] [address], [facility] Hemoglobin (Bld) [Mass/Vol] 11.7 g/dL Low 13.0-17.0 [facility] Comment on above: Order Comment: No: D o not add to previous draw Performed By: #### 5 0103 #### [facility] [address] [place] [address], [facility] IMMATURE GRANS 1.3 % High 0.0-1.0 The [facility] Comment on above: Order Comment: No: D o not add to previous draw Performed By: #### 5 3 #### [facility] [address] [place] [address], [facility] Lymphocytes (Bld) [#/Vol] 1.5 10*3/uL Normal 1.2-4.0 [facility] Comment on above: Order Comment: No: D o not add to previous draw Performed By: #### 5 0103 #### [facility] [address] [place] [address], [facility] Lymphocytes/100 WBC (Bld) 21.8 % Normal 20.0-45.0 [facility] Comment on above: Order Comment: No: D o not add to previous draw Performed By: #### 5 0103 #### [facility] [address] [place] [address], [facility] MCH (RBC) [Entitic mass] 29.5 pg Normal 27.0-33.0 [facility] Comment on above: Order Comment: No: D o not add to previous draw Performed By: #### 5 0103 #### [facility] [address] [place] [address], [facility] MCHC (RBC) [Mass/Vol] 31.4 g/dL Low 32.0-35.0 [facility] Comment on above: Order Comment: No: D o not add to previous draw Performed By: #### 5 0103 #### [facility] [address] [address], [facility] MCV (RBC) [Entitic vol] 94.0 fL Normal 82.0-98.0 [facility] Comment on above: Order Comment: No: D o not add to previous draw Performed By: #### 5 0103 #### [facility] [address] [place] [address], [facility] Monocytes (Bld) [#/Vol] 0.6 10*3/uL Normal 0.1-1.0 [facility] Comment on above: Order Comment: No: D o not add to previous draw Performed By: #### 5 0103 #### [facility] [address] [facility] [place] [address], [facility] MONOS 8.2 % Normal 5.0-12.0 [facility] Comment on above: Order Comment: No: D o not add to previous draw Performed By: #### 5 0103 #### [facility] [address] [place] [address], [facility] Neutrophils/100 WBC (Bld) 63.0 % Normal 40.0-72.0 [facility] Comment on above: Order Comment: No: D o not add to previous draw Performed By: #### 5 0103 #### [facility] [address] [place] [address], [facility] Nucleated RBC/100 WBC (Bld) [Ratio] 0 % Normal 0-0 [facility] Comment on above: Order Comment: No: D o not add to previous draw Performed By: #### 5 0103 #### [facility] [address] [place] [address], [facility] PLAT CNT 162 10*3/uL Normal 150-400 The [facility] Comment on above: Order Comment: No: D o not add to previous draw Performed By: #### 5 0103 #### [facility] [address] [place] [address], [facility] RBC (Bld) [#/Vol] 3.97 10*6/uL Low 4.20-5.70 [facility] Comment on above: Order Comment: No: D o not add to previous draw Performed By: #### 5 0103 #### [facility] [address] [place] [address], [place] WBC (Bld) [#/Vol] 6.69 10*3/uL Normal 4.00-10.60 [facility] Comment on above: Order Comment: No: D o not add to previous draw Performed By: #### 5 3 #### [facility] [address] [place] [address], [facility] BASIC METABOLIC PANELon 09-13 Calcium [Mass/Vol] 9.7 mg/dL Normal 8.6-10.3 [facility] Comment on above: Order Comment: No: D o not add to previous draw Performed By: #### 0 0071, 68494 #### [facility] [address] [place] [address], [place] Chloride [Moles/Vol] 105 mmol/L Normal 98-107 [facility] Comment on above: Order Comment: No: D o not add to previous draw Performed By: #### 0 0071, 06916 #### [facility] [address] [place] [address], [place] CO2 [Moles/Vol] 25 mmol/L Normal 21-31 The [facility] Comment on above: Order Comment: No: D o not add to previous draw Performed By: #### 0 0071, 42691 #### [facility] [address] [place] [address], [place] Creatinine [Mass/Vol] 2.13 mg/dL High 0.70-1.30 [facility] Comment on above: Order Comment: No: D o not add to previous draw Performed By: #### 0 0071, 06761 #### [facility] [address] [place] [address], [place] GFR/1.73 sq M predicted among blacks MDRD (S/P/Bld) [Vol rate/Area] 38 ml/min/1.73sq m Abnormal >60 The [facility] Comment on above: Order Comment: No: D o not add to previous draw Performed By: #### 0 0071, 29621 #### [facility] [address] [place] [address], [place] GFR/1.73 sq M predicted among non-blacks MDRD (S/P/Bld) [Vol rate/Area] 31 ml/min/1.73sq m Abnormal >60 [facility] Comment on above: Order Comment: No: D o not add to previous draw Performed By: #### 0 0071, 04512 #### [facility] [address] [place] [address], [place] Glucose [Mass/Vol] 114 mg/dL High 70-100 The [facility] Comment on above: Order Comment: No: D o not add to previous draw Performed By: #### 0 0071, 71162 #### [facility] [address] [place] [address], [place] Potassium [Moles/Vol] 4.7 mmol/L Normal 3.5-5.1 [facility] Comment on above: Order Comment: No: D o not add to previous draw Performed By: #### 0 0071, 48121 #### [facility] [address] [place] [address], [place] Sodium [Moles/Vol] 140 mmol/L Normal 136-145 [facility] Comment on above: Order Comment: No: D o not add to previous draw Performed By: #### 0 0071, 57764 #### [facility] [address] Urea nitrogen [Mass/Vol] 32 mg/dL High 7-25 [facility] Comment on above: Order Comment: No: D o not add to previous draw Performed By: #### 0 0071, 40610 #### [facility] [address] [place] [address], [facility] CBC W/DIFFon 10-05-2019 ABS BASOPHILS 0.1 10*3/uL Normal 0.0-0.2 The [facility] Comment on above: Performed By: #### 5 0103 #### [facility] [address] ABS IMM GRANS 0.1 10*3/uL Normal 0.0-0.2 The [facility] Comment on above: Performed By: #### 5 0103 #### [facility] [address] ABS NEUTROPHILS 6.2 10*3/uL Normal 1.6-7.[address] [facility] Comment on above: Performed By: #### 5 0103 #### [facility] [address] [place] [address], [facility] Basophils/100 WBC (Bld) 0.7 % Normal 0.0-1.0 The [facility] Comment on above: Performed By: #### 5 3 #### [facility] [address] [place] [address], [facility] Eosinophils (Bld) [#/Vol] 0.3 10*3/uL Normal 0.0-0.5 The [facility] Comment on above: Performed By: #### 5 102 #### [facility] [address] [place] [address], [facility] Eosinophils/100 WBC (Bld) 4.0 % Normal 0.0-6.0 The [facility] Comment on above: Performed By: #### 5 0103 #### [facility] [address] Erythrocyte distribution width (RBC) [Ratio] 14.4 % Normal 11.5-15.0 The [facility] Comment on above: Performed By: #### 5 0103 #### [facility] [address] [facility] [address], [facility] Hematocrit (Bld) [Volume fraction] 39.3 % Normal 39.0-50.0 The [facility] Comment on above: Performed By: #### 5 0103 #### [facility] 3000 [facility] [address] Hemoglobin (Bld) [Mass/Vol] 12.7 g/dL Low 13.0-17.0 The [facility] Comment on above: Performed By: #### 5 0103 #### [facility] [address] [facility] IMMATURE GRANS 0.8 % Normal 0.0-1.0 The [facility] Comment on above: Performed By: #### 5 0103 #### [facility] [address] [facility] Lymphocytes (Bld) [#/Vol] 1.4 10*3/uL Normal 1.2-4.0 The [facility] Comment on above: Performed By: #### 5 0103 #### [facility] 3000 [facility]. [address] Lymphocytes/100 WBC (Bld) 16.6 % Low 20.0-45.0 The [facility] Comment on above: Performed By: #### 5 3 #### [facility] [address] [place] [address], [facility] MCH (RBC) [Entitic mass] 30.3 pg Normal 27.0-33.0 The [facility] Comment on above: Performed By: #### 5 0103 #### [facility] [address] [place] [address], [facility] MCHC (RBC) [Mass/Vol] 32.3 g/dL Normal 32.0-35.0 The [facility] Comment on above: Performed By: #### 5 3 #### [facility] [address] [place] [address], [facility] MCV (RBC) [Entitic vol] 93.8 fL Normal 82.0-98.0 The [facility] Comment on above: Performed By: #### 5 3 #### [facility] [address] [place] [address], [facility] Monocytes (Bld) [#/Vol] 0.4 10*3/uL Normal 0.1-1.0 The [facility] Comment on above: Performed By: #### 5 102 #### [facility] [address] [place] [address], [facility] MONOS 4.9 % Low 5.0-12.0 The [facility] Comment on above: Performed By: #### 5 3 #### [facility] [address] [place] [address], [facility] Neutrophils/100 WBC (Bld) 73.0 % High 40.0-72.0 The [facility] Comment on above: Performed By: #### 5 3 #### [facility] [address] [place] [address], [facility] Nucleated RBC/100 WBC (Bld) [Ratio] 0 % Normal 0-0 The [facility] Comment on above: Performed By: #### 5 3 #### [facility] [address] [place] [id number], [facility] PLAT CNT 205 10*3/uL Normal 150-400 The [facility] Comment on above: Performed By: #### 5 3 #### [facility] [address] [place] [address], [facility] RBC (Bld) [#/Vol] 4.19 10*6/uL Low 4.20-5.70 The [facility] Comment on above: Performed By: #### 5 0103 #### [facility] [address] [place] [address], [facility] WBC (Bld) [#/Vol] 8.53 10*3/uL Normal 4.00-10.60 The [facility] Comment on above: Performed By: #### 5 0103 #### [facility] [address] [place] [address], [facility] CREATININE URINE RANDOMon Creatinine [Mass/Vol] 62.0 mg/dL Normal The [facility] Comment on above: Order Comment: No: D o not add to previous draw Result Comment: Ther e are no established reference values for random urine specimens Performed By: #### 2 5706, 25210, [id number] #### [facility] [address] [place] [address], [facility] LIVER BATTERYon 10-05-2019 Albumin [Mass/Vol] 4.6 g/dL Normal 3.5-5.7 [facility] Comment on above: Order Comment: Yes: Add to Previous draw if able Performed By: #### 0 0071, [id number] #### [facility] [address] [place] [address], [facility] ALKALINE PHOSPH 56 IU/L Normal 34-104 The [facility] Comment on above: Order Comment: Yes: Add to Previous draw if able Performed By: #### 0 0071, [id number] #### [facility] [address] [place] [address], [facility] ALT [Catalytic activity/Vol] 26 U/L Normal 7-52 The [facility] Comment on above: Order Comment: Yes: Add to Previous draw if able Performed By: #### 0 0071, 00655 #### [facility] [address] [place] [address], [place] AST [Catalytic activity/Vol] 25 U/L Normal 13-39 The [facility] Comment on above: Order Comment: Yes: Add to Previous draw if able Performed By: #### 0 0071, 42972 #### [facility] [address] [place] [address], [place] Bilirubin [Mass/Vol] 0.5 mg/dL Normal 0.3-1.0 The [facility] Comment on above: Order Comment: Yes: Add to Previous draw if able Performed By: #### 0 0071, 68749 #### [facility] [address] [place] [address], [place] Bilirubin.direct [Mass/Vol] 0.1 mg/dL Normal 0.0-0.2 The [facility] Comment on above: Order Comment: Yes: Add to Previous draw if able Performed By: #### 0 0071, 36545 #### [facility] [address] [place] [address], [place] Protein [Mass/Vol] 7.6 g/dL Normal 6.0-8.3 [facility] Comment on above: Order Comment: Yes: Add to Previous draw if able Performed By: #### 0 0071, 97144 #### [facility] [address] [place] [address], [place] SODIUM URINE RANDOMon 2019 Sodium (U) [Moles/Vol] 111 mmol/L Normal The [facility] Comment on above: Order Comment: No: D o not add to previous draw Result Comment: Ther e are no established reference values for random urine specimens Performed By: #### 2 5706, 25015, 02097 #### [facility] [address] [place] [address], [place] UA,MICROSCOPIC REQUIREDon Appearance (U) CLEAR Normal CLEAR The [facility] Comment on above: Order Comment: No: D o not add to previous draw Performed By: #### 9 0150 #### [facility] [address] [place] [address], [place] Bilirubin [Mass/Vol] Negative Normal NEGATIVE The [facility] Comment on above: Order Comment: No: D o not add to previous draw Performed By: #### 9 0150 #### [facility] [address] [place] [address], [place] BLOOD Negative Normal NEGATIVE The [facility] Comment on above: Order Comment: No: D o not add to previous draw Performed By: #### 9 0150 #### [facility] [address] [place] [address], [place] Color (U) YELLOW Normal YELLOW The [facility] Comment on above: Order Comment: No: D o not add to previous draw Performed By: #### 9 0150 #### [facility] [address] [place] [address], [place] EPIS OCC Normal FEW,OCC,NONE SEEN The [facility] Comment on above: Order Comment: No: D o not add to previous draw Performed By: #### 9 0150 #### [facility] [address] [place] [address], [place] Glucose [Mass/Vol] Negative Normal NEGATIVE The [facility] Comment on above: Order Comment: No: D o not add to previous draw Performed By: #### 9 0150 #### [facility] [address] [place] [address], [place] HYALINE CASTS 1 /LPF Abnormal NONE SEEN The [facility] Comment on above: Order Comment: No: D o not add to previous draw Performed By: #### 9 0150 #### [facility] [address] [place] [address], [place] KETONE Negative Normal NEGATIVE The [facility] Comment on above: Order Comment: No: D o not add to previous draw Performed By: #### 9 0150 #### [facility] [address] [place] [address], [place] LEUK BURAK Negative Normal NEGATIVE The [facility] Comment on above: Order Comment: No: D o not add to previous draw Performed By: #### 9 0150 #### [facility] [address] [place] [address], [place] Nitrite Ql (U) Negative Normal NEGATIVE The [facility] Comment on above: Order Comment: No: D o not add to previous draw Performed By: #### 9 0150 #### [facility] [address] [place] [address], [place] pH (Bld) 6.0 Normal 5.0-8.0 The [facility] Comment on above: Order Comment: No: D o not add to previous draw Performed By: #### 9 0150 #### [facility] [address] [place] [address], [place] Protein [Mass/Vol] Negative Normal NEGATIVE The [facility] Comment on above: Order Comment: No: D o not add to previous draw Performed By: #### 9 0150 #### [facility] [address] [place] [address], [place] RBC (Bld) [#/Vol] 0-2 Abnormal NONE SEEN The [facility] Comment on above: Order Comment: No: D o not add to previous draw Performed By: #### 9 0150 #### [facility] [address] [place] [address], [place] SPEC GRAV 1.012 Low 1.015-1.020 The [facility] Comment on above: Order Comment: No: D o not add to previous draw Performed By: #### 9 0150 #### [facility] [address] [place] [address], [place] WBC UA 0-2 Abnormal NONE SEEN The [facility] Comment on above: Order Comment: No: D o not add to previous draw Performed By: #### 9 0150 #### [facility] [address] [facility] [place] [address], [facility] UREA NITROGEN URon 0 Urea nitrogen [Mass/Vol] 566 mg/dL Normal The [facility] Comment on above: Order Comment: No: D o not add to previous draw Result Comment: Ther e are no established reference values for random urine specimens Performed By: #### 2 5706, 51138, 52121 #### [facility] [address] [place] [address], [facility] US RENALon 10-05-2019 RENAL [facility] Department of Radiology [address] [place] [address] [id number] ======== Patient Name: KEL CASTILLO : 1955 Sex: M Age: Race: White Pt. Location: [id number] Patient Status: I Ordered Date: 10/05/2019 10:45:00 AM Completed Date: 10/05/2019 12:43 PM Requesting Provider: LIU KRUEGER Attending Provider: DUKE RNAGEL Report Copy To: Signs & Symptoms: Increased [...] hydronephrosis. Electronically signed: Robinson Castellanos. Transcribed by: [email or web address], User Resident: Electronically Signed by: ROBINSON CASTELLANOS @ 10/05/2019 03:41 PM Normal The [facility] Comment on above: Order Comment: [place] nephrosis Vital Signs Date Time Vital Sign Value Performing Clinician Facility 01-25-2023 10:00-0400 Body height 167.64 cm Lisseth Toscano Other [facility] Other 01-25-2023 10:00-0400 Body mass index (BMI) [Ratio] 31.57 kg/m2 Lisseth Toscano Other [facility] Other 01-25-2023 10:00-0400 Body temperature 96.2 [degF] Lisseth Toscano Other [facility] Other 01-25-2023 10:00-0400 Body weight 88.72 kg Lisseth Toscano Other [facility] Other 01-25-2023 10:00-0400 Diastolic blood pressure 76 mm[Hg] Lisseth Toscano Other [facility] Other 01-25-2023 10:00-0400 Respiratory rate 20 /min Lisseth Toscano Other [facility] Other 01-25-2023 10:00-0400 SaO2% (BldA) [Mass fraction] 98 % Lisseth Toscano Other [facility] Other 01-25-2023 10:00-0400 Systolic blood pressure 147 mm[Hg] Lisseth Toscano Other [facility] Other 08-15-2022 15:40-0500 Body height 167.6 cm Ebony Mandeep DO Work Phone: [facility] 08-15-2022 15:40-0500 Body weight 89.81 kg Ebony Mandeep DO Work Phone: [facility] 08-15-2022 15:40-0500 Diastolic blood pressure 78 mm[Hg] Ebony Mandeep DO Work Phone: [facility] 08-15-2022 15:40-0500 Heart rate 61 /min Ebony Mandeep DO Work Phone: [facility] 08-15-2022 15:40-0500 SaO2% (BldA) [Mass fraction] 100 % Ebony Mandeep DO Work Phone: [facility] 08-15-2022 15:40-0500 Systolic blood pressure 148 mm[Hg] Ebony Mandeep DO Work Phone: [facility] 07-10-2022 14:40-0500 Body height 167.64 cm Lisseth Toscano Other [facility] Other 07-10-2022 14:40-0500 Body mass index (BMI) [Ratio] 31.95 kg/m2 Lisseth Toscano Other [facility] Other 07-10-2022 14:40-0500 Body weight 89.81 kg Lisseth Toscano Other [facility] Other 07-10-2022 14:40-0500 Diastolic blood pressure 70 mm[Hg] Lisseth Toscano Other [facility] Other 07-10-2022 14:40-0500 SaO2% (BldA) [Mass fraction] 95 % Lisseth Toscano Other [facility] Other 07-10-2022 14:40-0500 Systolic blood pressure 128 mm[Hg] Lisseth Toscano Other [facility] Other 06-05-2022 16:30-0400 Body height 167.64 cm Corona Monroe Other [facility] Other 06-05-2022 16:30-0400 Body mass index (BMI) [Ratio] 32.12 kg/m2 Corona Caseban Other [facility] Other 06-05-2022 16:30-0400 Body temperature 96.5 [degF] Corona Casesoila Other [facility] Other 06-05-2022 16:30-0400 Body weight 90.27 kg Corona Caseban Other [facility] Other 06-05-2022 16:30-0400 Diastolic blood pressure 82 mm[Hg] Corona Caseban Other [facility] Other 06-05-2022 16:30-0400 Respiratory rate 20 /min Corona Caseban Other [facility] Other 06-05-2022 16:30-0400 SaO2% (BldA) [Mass fraction] 96 % Corona Caseban Other [facility] Other 06-05-2022 16:30-0400 Systolic blood pressure 140 mm[Hg] Corona Evieban Other [facility] Other 04-10-2022 09:44-0400 Body height 165.1 cm Ebony Mandeep DO Work Phone: [facility] 04-10-2022 09:44-0400 Body weight 89.68 kg Ebony Mandeep DO Work Phone: [facility] 04-10-2022 09:44-0400 Diastolic blood pressure 69 mm[Hg] Ebony Mandeep DO Work Phone: [facility] 04-10-2022 09:44-0400 Heart rate 57 /min Ebony Mandeep DO Work Phone: [facility] 04-10-2022 09:44-0400 Systolic blood pressure 146 mm[Hg] Ebony Mandeep DO Work Phone: [facility] 02-27-2022 15:30-0400 Body height 167.64 cm Kamkaren Monroe Other [facility] Other 02-27-2022 15:30-0400 Body mass index (BMI) [Ratio] 31.95 kg/m2 Kamkaren Caseban Other [facility] Other 02-27-2022 15:30-0400 Body temperature 96.9 [degF] Kamal Chaban Other [facility] Other 02-27-2022 15:30-0400 Body weight 89.81 kg Kamal Chaban Other [facility] Other 02-27-2022 15:30-0400 Diastolic blood pressure 76 mm[Hg] Kamal Chaban Other [facility] Other 02-27-2022 15:30-0400 Respiratory rate 20 /min Kamal Chaban Other [facility] Other 02-27-2022 15:30-0400 SaO2% (BldA) [Mass fraction] 97 % Corona Monroe Other [facility] Other 02-27-2022 15:30-0400 Systolic blood pressure 142 mm[Hg] Corona Monroe Other [facility] Other 01-29-2022 12:00-0400 Body height 167.64 cm Cristo Suazo Other [facility] Other 01-29-2022 12:00-0400 Body mass index (BMI) [Ratio] 32.84 kg/m2 Cristo Suazo Other [facility] Other 01-29-2022 12:00-0400 Body weight 92.31 kg Cristo Suazo Other [facility] Other 01-29-2022 12:00-0400 Diastolic blood pressure 78 mm[Hg] Cristo Suazo Other [facility] Other 01-29-2022 12:00-0400 Respiratory rate 18 /min Cristo Suazo Other [facility] Other 01-29-2022 12:00-0400 SaO2% (BldA) [Mass fraction] 98 % Cristo Suazo Other [facility] Other 01-29-2022 12:00-0400 Systolic blood pressure 142 mm[Hg] Cristo Suazo Other [facility] Other 12-26-2021 17:00-0400 Body height 167.64 cm Cristo Suazo Other [facility] Other 12-26-2021 17:00-0400 Body mass index (BMI) [Ratio] 31.15 kg/m2 Cristo Suazo Other [facility] Other 12-26-2021 17:00-0400 Body weight 87.54 kg Cristo Suazo Other [facility] Other 12-26-2021 17:00-0400 Diastolic blood pressure 79 mm[Hg] Cristo Suazo Other [facility] Other 12-26-2021 17:00-0400 Respiratory rate 18 /min Cristo Suazo Other [facility] Other 12-26-2021 17:00-0400 SaO2% (BldA) [Mass fraction] 95 % Cristo Suazo Other [facility] Other 12-26-2021 17:00-0400 Systolic blood pressure 161 mm[Hg] Cristo Suazo Other [facility] Other 12-22-2021 08:25-0400 Body height 165.1 cm Jessie Lay MD Work Phone: [facility] 12-22-2021 08:25-0400 Body weight 87.68 kg Jessie Lay MD Work Phone: [facility] 12-22-2021 08:25-0400 Diastolic blood pressure 70 mm[Hg] Jessie Lay MD Work Phone: [facility] 12-22-2021 08:25-0400 Heart rate 59 /min Jessie Lay MD Work Phone: [facility] 12-22-2021 08:25-0400 Systolic blood pressure 153 mm[Hg] Jessie Lay MD Work Phone: [facility] 05-23-2021 15:40-0400 Body height 167.64 cm Reuben Triana Other [facility] Other 05-23-2021 15:40-0400 Body mass index (BMI) [Ratio] 30.84 kg/m2 Reuben Triana Other [facility] Other 05-23-2021 15:40-0400 Body temperature 96.3 [degF] Reuben Triana Other [facility] Other 05-23-2021 15:40-0400 Body weight 86.68 kg Reuben Triana Other [facility] Other 05-23-2021 15:40-0400 Diastolic blood pressure 62 mm[Hg] Reuben Triana Other [facility] Other 05-23-2021 15:40-0400 Respiratory rate 18 /min Reuben Triana Other [facility] Other 05-23-2021 15:40-0400 SaO2% (BldA) [Mass fraction] 94 % Reuben Triana Other [facility] Other 05-23-2021 15:40-0400 Systolic blood pressure 140 mm[Hg] Reuben Triana Other [facility] Other Encounters Encounter Date Encounter Type Care Provider Facility Start: 04-09-2023 End: 04-09-2023 Emergency department patient visit NON STAFF Facility:[facility] Start: 04-09-2023 End: 04-09-2023 ambulatory Lisseth Toscano Other [facility] Other Start: 04-09-2023 Telephone encounter Azryan Bakhous [facility] Start: 01-25-2023 End: 01-25-2023 ambulatory Aziz Bakhous Other [facility] Other Start: 01-25-2023 Office outpatient visit 25 minutes Aziz Bakhous [facility] Start: 08-15-2022 End: 08-15-2022 ambulatory EBONY R MANDEEP Facility:[facility] Start: 08-15-2022 End: 08-15-2022 Patient encounter procedure Ebony Kaufman DO Work Phone: Neurology Comment on above: MCI (mild cognitive impairment) (Primary Dx) Start: 07-27-2022 End: 07-28-2022 ambulatory MEDINA Randolph MAZAEDWIN Facility: Start: 07-10-2022 End: 07-10-2022 ambulatory Aziz Bakhous Other [facility] Other Start: 07-10-2022 Office outpatient visit 15 minutes Aziz Bakhous [facility] [place] Start: 07-07-2022 End: 07-08-2022 ambulatory AZIZ BAKHOUS Facility: Start: 07-03-2022 End: 07-03-2022 ambulatory Kamal Chaban Facility:[facility] Start: 06-26-2022 End: 06-26-2022 ambulatory Nadira Choi Other [facility] Other Start: 06-26-2022 Telephone encounter Nadira Choi [facility] [place] Start: 06-05-2022 End: 06-05-2022 ambulatory Kamal Chaban Other [facility] Other Start: 06-05-2022 Office outpatient visit 25 minutes Kamal Chaban [facility] Start: 05-29-2022 End: 05-29-2022 ambulatory Thomas Genesis Other [facility] Other Start: 05-29-2022 Telephone encounter Thomas Genesis [facility] Start: 05-01-2022 Telephone encounter Malinda garcia Personnel Clerk Cardiop[facility] Re[facility] Comment on above: Biomathematician - O ther (In response to order placed in EPIC) Start: 04-11-2022 End: 04-11-2022 Patient encounter procedure MD Corona Monroe Work Phone: [facility] Start: 04-10-2022 End: 04-10-2022 ambulatory EBONY KAUFMAN Facility:[facility] Start: 04-10-2022 End: 04-10-2022 Patient encounter procedure Ebony Kaufman DO Work Phone: Neurology Comment on above: 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) (Primary Dx); MCI (mild cognitive impairment) Start: 03-13-2022 End: 03-13-2022 ambulatory Thomas Genesis Other [facility] Other Start: 03-13-2022 Telephone encounter Thomas Genesis [facility] Start: 03-05-2022 End: 03-05-2022 ambulatory Thomas Genesis Other [facility] Other Start: 03-05-2022 Telephone encounter Thomas Genesis [facility] Start: 02-28-2022 End: 02-28-2022 ambulatory Corona Monroe Other [facility] Other Start: 02-28-2022 Telephone encounter Corona Monroe [facility] Start: 02-27-2022 End: 02-27-2022 ambulatory Corona Monroe Other [facility] Other Start: 02-27-2022 Office outpatient ne w 45 minutes Corona Monroe [facility] Start: 02-21-2022 Telephone encounter Cristo Bender [facility] [place] Start: 02-21-2022 End: 02-22-2022 ambulatory [facility] Start: 02-09-2022 End: 02-09-2022 ambulatory [facility]m [facility] 11 Other Phone: Pulmonary Medicine Comment on above: Spirometry Question regarding Rhiannon PATTON IVCON Start: 02-09-2022 End: 02-09-2022 Patient encounter procedure [facility] 11 Other Phone: [facility] Start: 02-08-2022 End: 02-08-2022 Orders Only Driss Nur MD Work Phone: [facility] Comment on above: Cognitive impairment , mild, so stated (Primary Dx) Shortness of breath (Primary Dx) Cognitive impairment , mild, so stated [G31.84] Start: 02-08-2022 Telephone encounter Thomas Hurtado [facility] Psychiat[facility] Start: 01-29-2022 End: 01-29-2022 ambulatory Cristo Suazo Other [facility] Other Start: 01-29-2022 Office outpatient visit 15 minutes Cristo Suazo [facility] Start: 01-05-2022 End: 01-05-2022 ambulatory Cristo Suazo Other [facility] Other Start: 01-05-2022 Telephone encounter Cristo Bender [facility] Start: 01-01-2022 End: 01-01-2022 ambulatory Cristo Suazo Other [facility] Other Start: 01-01-2022 Telephone encounter Cristo Bender [facility] Start: 12-26-2021 End: 12-26-2021 ambulatory Cristo Suazo Other [facility] Other Start: 12-26-2021 Office outpatient visit 25 minutes Cristo Suazo [facility] Start: 12-22-2021 End: 12-22-2021 ambulatory JESSIE LAY Facility:[facility] Start: 12-22-2021 End: 12-22-2021 Patient encounter procedure Jessie Lay MD Work Phone: Neurology Comment on above: 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); Cognitive impairment, mild, so stated; Depression, unspecified depression type Start: 12-18-2021 End: 12-18-2021 ambulatory Thomas Genesis Other [facility] Other Start: 12-18-2021 Telephone encounter [facility] Start: 12-06-2021 End: 12-06-2021 ambulatory Thomas Genesis Other [facility] Other Start: 12-06-2021 Telephone encounter [facility] Start: 12-04-2021 End: 12-04-2021 ambulatory Cristo Suazo Other [facility] Other Start: 12-04-2021 Telephone encounter [facility] Start: 09-13-2021 End: 09-13-2021 ambulatory Thomas [facility] Other [facility] Other Start: 09-13-2021 Telephone encounter [facility] Start: 08-16-2021 End: 08-16-2021 ambulatory Cristo Suazo Other [facility] Other Start: 08-16-2021 Telephone encounter [facility] Start: 05-30-2021 Telephone encounter [facility] Start: 05-23-2021 Office outpatient visit 25 minutes Reuben Triana [facility] [place] Start: 05-23-2021 Telephone encounter Susannah cade [facility] [place] Start: 04-03-2018 End: 04-04-2018 Patient encounter [facility] [place] [place]: 03-28-2018 End: 03-29-2018 Patient encounter [facility] [place] Procedures Date Procedure Procedure Detail Performing Clinician [...] 12-22-2022 Adult depression screening assessment DEPRESSION SCREENING [facility] Start: 08-12-2022 ADVANCE DIRECTIVE DISCUSSION ADVANCE DIRECTIVE DISCUSSION [facility] Start: 04-12-2022 Influenza vaccination INFLUENZA (#1) [facility] Start: 02-09-2022 End: 03-10-2023 SPIROMETRY WITH DILATOR IF OBSTRUCTED [facility] [place] Work Phone: Comment on above: Expected: 02/09/2022 , Expires: 03/10/2023 Start: 12-22-2021 End: 02-21-2022 SYPHILIS TOTAL W/REFLEX SYPHILIS TOTAL W/REFLEX Lab Routine Cognitive impairment, mild, so stated 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) Depression, unspecified depression type Expected: 12/22/2021, Expires: 02/21/2022 [facility] Work Phone: Comment on above: Expected: 12/22/2021 , Expires: 02/21/2022 Start: 12-22-2021 End: 02-21-2022 Thyrotropin [Units/volume] in Serum or Plasma TSH BLD Lab Routine Cognitive impairment, mild, so stated 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) Depression, unspecified depression type Expected: 12/22/2021, Expires: 02/21/2022 [facility] Work Phone: Comment on above: Expected: 12/22/2021 , Expires: 02/21/2022 Start: 12-22-2021 End: 02-21-2022 VITAMIN B12 BLOOD VITAMIN B12 BLOOD Lab Routine Cognitive impairment, mild, so stated 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) Depression, unspecified depression type Expected: 12/22/2021, Expires: 02/21/2022 [facility] Work Phone: Comment on above: Expected: 12/22/2021 , Expires: 02/21/2022 Start: 12-05-2021 COVID-19 VACCINE (4 - Booster for Pfizer series) COVID-19 VACCINE (4 - Booster for Pfizer series) [facility] Start: 10-01-2021 COVID-19 VACCINE (4 - Booster for Pfizer series) COVID-19 VACCINE (4 - Booster for Pfizer series) [facility] Start: 08-12-2021 ADVANCE DIRECTIVE DISCUSSION ADVANCE DIRECTIVE DISCUSSION [facility] Start: 2018 PNEUMOCOCCAL: 65+ (1 - PCV) PNEUMOCOCCAL: 65+ (1 - PCV) [facility] Start: 2018 PNEUMOVAX AGE 65 AND OVER WITH 5YR LOOKBACK (#1) PNEUMOVAX AGE 65 AND OVER WITH 5YR LOOKBACK (#1) [facility] Start: 2008 PROSTATE CANCER SCREENING DISCUSSION PROSTATE CANCER SCREENING DISCUSSION [facility] Start: 2003 SHINGRIX VACCINE (1 of 2) SHINGRIX VACCINE (1 of 2) [facility] Start: 1998 COLOGUARD (FIT-DNA) COLOGUARD (FIT-D NA) [facility] Start: 1998 Colonoscopy COLONOSCOPY [facility] Start: 1998 COLORECTAL CANCER SCREENING COLORECTAL CANCER SCREENING [facility] Start: [address] COLONOGRAPHY [facility] Start: 1998 DIABETES SCREEN DIABETES SCREEN [facility] Start: 1998 FECAL OCCULT BLOOD FECAL OCCULT BLOO D [facility] Start: 1998 SIGMOIDOSCOPY SIGMOIDOSCOPY [facility] Start: 1988 LIPID SCREEN LIPID SCREEN [facility] Start: 1972 Urine microalbumin profile DTAP,TDAP,TD (1 - Tdap) [facility] Start: 1971 HEPATITIS C SCREENING HEPATITIS C KRISTOPHER DIAMOND [facility] End: 01-21-2023 Mri brain brain stem w/o contrast material MRI BRAIN WO IVCON Radiology Routine Cognitive impairment, mild, so stated 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) Depression, unspecified depression type 1 Occurrences starting 12/22/2021 until 01/21/2023 [facility] [place] Work Phone: Comment on above: 1 Occurrences starti ng 12/22/2021 until 01/21/2023 [facility] Immunizations Immunization Date Immunization Notes Care Provider Marina quesada 08-06-2021 COVID-19 Vaccine Pfi zer - Documentation Purposes Only Corona Monroe Other [facility] Other 05-23-2021 influenza, high dose seasonal, preservative-free Susannah Nevarez Other [facility] Other 11-08-2020 COVID-19 Pfizer Susannah montano Other [facility] Other 10-19-2020 COVID-19 Vaccine Pfi zer - Documentation Purposes Only Susannah Nevarez Other [facility] Other 08-03-2020 influenza, high dose seasonal, preservative-free Susannah Nevarez Other [facility] Other 08-03-2020 pneumococcal polysaccharide vaccine, 23 valent Susannah Nevarez Other [facility] Other 08-27-2019 pneumococcal conjuga te vaccine, 13 valent Susannah Nevarez Other [facility] Other Payers Date Payer Category Payer Self-pay [id number] 2020 Unknown [employer]IJAH [employer]CHEL[employer] PPO [id number] 2020-Present [phone] [address] [place] [address] PPO [id number] 2018 Unknown 2015 Medicare MEDICARE MEDICAR E A AND B [id number] 2015-Present [phone] [place] [address] Medicare [id number] 2015 Medicare MEDICARE MEDICAR E A AND B [id number] 2015-Present [phone] [place] [address] Medicare [id number] [facility] [id number] 1959 Medicare [id number] 1953 Unknown [id number] 1953 Unknown [id number] 1953 Unknown [id number] 93 Unknown [facility] [id number] Unknown [id number] 31 Unknown [id number] Social History Date Type Detail Facility Start: 12-22-2021 End: 08-15-2022 Tobacco smoking status NHIS Never smoked tobacco [facility] Start: 12-22-2021 End: 04-10-2022 Tobacco use and exposure User of smokeless tobacco [facility] End: 07-14-2022 History of tobacco use Chews Tobacco [facility] Start: 1955 Sex Assigned At Not on file [facility] Start: 12-12-2021 End: 04-10-2022 Exposure to SARS-CoV-2 (event) Not sure [facility] Sex Assigned At Sex Assigned At Bir th [facility] Other Start: 09-30-2020 Tobacco smoking status NHIS Ex-smoker (finding) [facility] Start: 1955 Sex Assigned At Male F [facility] Start: 08-15-2022 Tobacco use and exposure Former smokeless tobacco user [facility] Medical Equipment Procedure Code Equipment Code Equipment Origin al Text Equipment Identifier Dates Repair, hernia, umbilical Abdominal hernia surgical mesh, composite-polymer [id number] FDA Start: 09-30-2020 Clinical Notes 05-23-2021 to 08-15-2022 Patient InstructionsEbony Kaufman DO - 08/15/2022 3:47 PM EST Note Date & Type Note Facility 08-15-2022 Note HNO ID: [id number] Author: Ebony Kaufman DO Service: ? Author Type: Physician Type: Progress Notes Filed: 08/15/2022 5:31 PM Note Text: [facility] Follow up/ Established patient visit Individuals who were included in, or assisted with the encounter were: Samir Castillo Ebony Kaufman DO Chief Complaint/Issues: Samir Castillo is a 67 year old male seen in the [facility] for: Follow-up Most Recent [...] AND 1/2 TABLETS BY MOUTH EVERY DAY Xlnylrnlfduwc-Rszjzzyn-Dtyomv (MULTIVITAMIN 50 PLUS) tab Take 1 tablet by mouth once daily. omega 0-yzq-ekm-fish oil (FISH OIL) 100-160-1,000 mg cap Take by mouth. methylPREDNISolone (MEDROL, TEAGAN,) 4 mg Dose-Pack Take as instructed (Patient not taking: No sig reported) No current facility-administered medications for this (more content not included)... [facility] 08-15-2022 Instructions Ebony Kaufman DO - 08/15/2022 4:17 PM EST Please work with your doctor on the sleep apnea and psychiatrist for depression. Follow-up in 6 months. documented in this encounter [facility] 08-15-2022 History of Presen t illness Narrative Images from the original note were not included. [facility] Follow up/ Established patient visit Individuals who were included in, or assisted with the encounter were: Samir Castillo Ebony Kaufman DO Chief Complaint/Issues: Samir Castillo is a 67 year old male seen in the [facility] for: Follow-up Most Recent [...] the same, maybe a bit worse around [place] given the anniversary of his daughter's was [...] AND 1/2 TABLETS BY MOUTH EVERY DAY Qbdilgitmzbpa-Niqniugx-Rvoicd (MULTIVITAMIN 50 PLUS) tab Take 1 tablet by mouth once daily. omega 3-xaa-qak-fish oil (FISH OIL) 100-160-1,000 mg cap Take [...] which included preparing to see the patient, ubhw-se-fxir patient care, completing clinical documentation, obtaining and/or reviewing separately obtained history, performing a medically appropriate examination, counseling and educating the patient/family/caregiver, and ordering medications, tests, or procedures. Ebony Kaufman DO documented in this encounter [facility] 07-10-2022 Evaluation note Encounter Date Diagnosis Assessment [...] mmol/L. 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 Author Type: Physician Type: Progress Notes Filed: 04/12/2022 12:26 AM Note Text: [facility] New Patient Evaluation Consulting Provider: Jessie Lay [address] [facility] [address] Individuals who were included in, or assisted with the encounter were: Samir Castillo Ebony Kaufman DO Chief Complaint/Issues: Samir Castillo is a 66 year old male seen in the [facility] for: Memory HPI: Here [...] notices problems with both short term and alf memory Language: yes, word finding problems. Knows [...] (PEPCID) 20 mg ta (more content not included)...[facility] 04-10-2022 Instructions* Patient Instructions* Ebony Kaufman DO [...] Follow-up in four months. [facility] History of Present illness Narrative* Ebony Kaufman DO - 04/10/2022 10:11 AM EDT Images from the original note were not included. [facility] New Patient Evaluation Consulting Provider: Jessie Lay [address] [facility] [address] Individuals who were included in, or assisted with the encounter were: Samir Kaufman DO Chief Complaint/Issues: Samir Castillo is a 66 year old male seen in the [facility] for: Memory HPI: Here [...] notices problems with both short term and intermodal customer service memory Language: yes, word finding problems. Knows [...] AND 1/2 TABLETS BY MOUTH EVERY DAY Ohvbsllyigjfq-Uqqntgzi-Rvzkke (MULTIVITAMIN 50 PLUS) tab Take 1 tablet by mouth once daily. omega 1-xmi-efh-fish oil (FISH OIL) 100-160-1,000 mg cap Take [...] which included preparing to see the patient, ymju-oe-stys patient care, completing clinical documentation, obtaining and/or reviewing separately obtained history, performing a medically appropriate examination, and counseling and educating the patient/family/caregiver. Ebony Kaufman DO [facility] NoteHNO ID: [id number] Author: Janell Polanco, PhD Service: ? 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 Brain MRI (02/08/2022) noted severe generalized volume [...] interest in transferring his psychiatric care to [facility]. 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 CURRENT MEDICATIONS, PER RECORDS (MOWER SHARPENER-relevant medications in bold): Medication albuterol HFA (PROVENTIL [...] mg tablet sertraline (ZOLOFT) 100 mg tablet Syhtnrizwvbfn-Kgcbxbnu-Rkdcbi (MULTIVITAMIN 50 PLUS) tab omega 3-qwk-eay-fish oil (FISH OIL) 100-160-1,000 mg cap methylPREDNISolone (MEDROL, TEAGAN,) 4 mg Dose-Pack FAMILY HISTORY: patient reported depression (mother, daughter) and diabetes (mother); denied family history of neurodegenerative conditions. BEHAVIORAL OBSERVATIONS: The patient presented as a casual (more content not included)...[facility]08-02-2022 Evaluation note* Encounter Date Diagnosis Assessment Notes Treatment Notes Treatment Clinical Notes Mar, Depression, major, recurrent, moderate (ICD-10 - F33.1) [facility] 07-25-2022 Evaluation note* Encounter Date Diagnosis Assessment Notes Treatment Notes Treatment Clinical Notes Feb, Depression, major, recurrent, moderate (ICD-10 - F33.1) [facility] 07-19-2022 Evaluation note* Encounter Date Diagnosis [...] Sleep apnea, unspecified type (ICD-10 - G47.30) [facility] Other 07-01-2022 Miscellaneous Notes* Telephone Encounter - [...] Dr. Roche Message text [facility] NoteHNO ID: [id number] Author: Marisol Davis MD Service: ? Author Type: Physician Type: Progress Notes Filed: 02/15/2022 1:05 PM Note Text: Mr. Castillo is a 66 year old male who presents to the [facility] [place]. Consultation requested for an opinion regarding SOB. 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 omega 3-gcq-hdu-fish oil (FISH OIL) 100-160-1,000 mg cap Take by mouth. methylPREDNISolone (MEDROL, TEAGAN,) 4 mg Dose-Pack Take as instructed PHYSICAL EXAM: Physical Exam On room air, able to complete sentences, no LE extremity edema No cervical or axillary LAD Chest: Air entry reduced in the lung bases, no wheeze or rhonchi CVS HS1/2 no crackles Abd soft, non tender MOWER SHARPENER: No focal deficits Labs / Imaging / Diagnostic Studies: All radiography listed below personally reviewed by me Data Reviewed from [facility] (in addition to that noted in HPI, and Past histories above): CMP, CBC PFT: 02/09/2022 ? (more content not included)...[facility]07-01-2022 Note HNO ID: [id number] Author: Brayan Trent CRT Service: ? Author Type: Respiratory Therapist Type: Progress Notes Filed: 02/09/2022 10:57 AM Note Text: PULM FUNCTION SMARTBLOCK: Provider: Prince Aby MD Spirometry w/BD: 1 System: MC9 - [id number] History of Present illness Narrative* Brayan Trent CRT - 02/09/2022 10:41 AM EDT PULM FUNCTION SMARTBLOCK: Provider: Prince Aby MD Spirometry w/BD: 1 System: MC9 - [id number] documented [facility] NoteHNO ID: [id number] Author: RT Ed(R) Service: Radiology Author Type: [...] BY: RT Ed(R) February 08, 2022 4:21 [facility]06-30-2022 History of Present illness Narrative* NOVA [...] 08, 2022 4:21 PM documented in [facility] Evaluation note* Encounter Date Diagnosis Assessment Notes [...] relief. 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 He did have an appointment with [facility] but has since decided to see pulmonology in [place]. Given his PFT and CT results I [...] with Dr. Hurtado at their upcoming appointment. [facility] 05-27-2022 Evaluation note* Encounter Date Diagnosis Assessment Notes Treatment Notes Treatment Clinical Notes December, Obstructive lung disease (ICD-10 - J44.9) December, Pulmonary nodule (ICD-10 - R91.1) [facility] 05-23-2022 Evaluation note* Encounter Date Diagnosis Assessment Notes Treatment Notes Treatment Clinical Notes December, Shortness of breath (ICD-10 - R06.02) [facility] 05-17-2022 Evaluation note* Encounter Date Diagnosis [...] next month or so we will recheck. [facility] Other 05-13-2022 NoteHNO ID: [id number] Author: Jessie Lay MD Service: ? Author Type: Physician Type: Progress Notes Filed: 12/22/2021 10:51 AM Note Text: [facility] New Patient Evaluation Consulting Provider: SELF Individuals who were included in, or assisted with the encounter were: ? Samir Castillo ? Jessie Lay MD Chief Complaint/Issues: Samir Castillo is a 66 year old male seen in the [facility] for: 1. Memory loss. [...] notices problems with both short term and alf memory Language: yes, word finding problems. Knows [...] AT BEDTIME NE (more content not included)... [id number] History of Present illness Narrative* Jessie Lay MD - 12/22/2021 8:41 AM EDT Images from the original note were not included. [facility] New Patient Evaluation Consulting Provider: SELF Individuals who were included in, or assisted with the encounter were: Samir Jose Lay MD Chief Complaint/Issues: Samir Castillo is a 66 year old male seen in the [facility] for: 1. Memory loss. [...] notices problems with both short term and alf memory Language: yes, word finding problems. Knows [...] AND 1/2 TABLETS BY MOUTH EVERY DAY Babtrlghcthkw-Njuijope-Yutxno (MULTIVITAMIN 50 PLUS) tab Take 1 tablet by mouth once daily. omega 5-ect-gof-fish oil (FISH OIL) 100-160-1,000 mg cap Take [...] which included preparing to see the patient, qwlp-yf-dcvl patient care, completing clinical documentation and performing a medically appropriate examination. Jessie Lay MD [facility] note* Encounter Date Diagnosis Assessment Notes Treatment Notes Treatment Clinical Notes December, Depression, major, recurrent, moderate (ICD-10 - F33.1) [facility] 10-12-2021 Evaluation note* Encounter Date Diagnosis [...] metoprolol. 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 He stated that his heart looks fine. [...] at home also runs between 140-150 systolic. [place] systolic blood pressure at home should be [...] his PCP Dr. Arellano for lipid profile. 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)- Primary Other persistent mental disorders due to conditions classified elsewhere Cognitive impairment, mild, so stated Mild cognitive impairment, so stated Depression, unspecified depression type documented in this encounter [facility] noteNo InformationNort Predictry Other evalurespk noteNort Predictry Other Evnecwukvu note* Diagnosis Cognitive impairment, mild, so stated- Primary Mild cognitive impairment, so stated documented in this encounter [facility] note* Diagnosis Shortness of breath- Primary documented in this encounter [facility] note* Diagnosis Cognitive impairment, mild, so stated Mild cognitive impairment, so stated 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) Other persistent mental disorders due to conditions classified elsewhere Depression, unspecified depression type documented in this encounter [facility] note* Diagnosis Shortness of breath documented in this encounter [facility] note* Diagnosis Recurrent major 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)- Primary Major depressive disorder, recurrent episode, in partial or unspecified remission MCI (mild cognitive impairment) Mild cognitive impairment, so stated documented in this encounter [facility] noteNo assessment information availableWooster Community [facility] Work Phone: Evaluzbgii note* Diagnosis MCI (mild cognitive impairment)- Primary Mild cognitive impairment, so stated documented in this encounter [facility] Other History general Narrative - Reported* Type Description Date Medical History hypertension Medical History hypercholesterolemia Medical History lung cancer Medical History heart disease Medical History A flutter Medical History Esophageal reflux Medical History DEPRESSION AND ANXIETY Surgical History CABG Surgical History hernia Surgical History lobectomy: lung Surgical History [facility]/Dr Joshi--hernia repair 2020 Hospitalization History see above [facility] Other History general Narrative - ReportedNost. [facility] Other History general Narrative - ReportedNost. [facility] Other Reason for referral (narrative)* Reason * Waiting for appt pulmonology, lung nodule, progressive SOB, hx. lung cancer Diagnosis 1 Pulmonary nodule (R9 1.1) Referral Organization [facility] Referring Provider First Name Cristo Referring Provider Last Name Gabriele Referring Provider Specialty Family Medi cine Referred Organization [facility] Referred Provider Gonsalo Hawley Referred Address [address] [place] [address],[place] [address],[place], [place],[address] Referred Provider Specialty Pulmonary Di seases Referral Priority Routine General Notes Mattie Carballo 01:40:04 PM >referral received and sent p2p successful per log [facility] Other Reason for referral (narrative)* Outpatient Procedure (Routine) - Pending Review Specialty Diagnoses / Procedures Referred By Lam chacko [facility] Diagnoses Shortness of breath Procedures SPIROMETRY WITH DILATOR IF OBSTRUCTED BRNCDILAT RSPSE SPMTRY PRE&POST-BRNCDILAT ADMN Marisol Davis MD [address] [place] [address] [facility] [place] [address] [place] [id number] Referral ID Status Reason Start Date Expiration Date Visits Requested Visits Authorized [id number] Pending Review Auto-Generat ed Referral 02/09/2022 03/10/2023 1 1 [facility] for visit NarrativeRef by Dr. Suazo for pulmonology, lung nodule, progressive SOB, hx. lung cancerNort Predictry Other Summary Purpose Family History No Family History Records Found Relationship Condition Age at Onset Recorded Date/T yanique Not Specified Hypertension Unknown Diabetes mellitus Unknown father Medical history unknown Unknown Advance Directives No Advanced Directives Records Found Advance Directive Response Recorded Date/ Time Advance Directives No July 6:23pm Hospital Course Note MR#: [id number] [facility] Pt. Name: Kel Castillo Admitted: 10/05/2019 [...] STEM W/[place] [address] [place] [address] Mr Imaging Referral ID Status Reason Start Date Expiration Date Visits Requested Visits Authorized [id number] Authorized Auto-Generat ed Referral 12/22/2021 01/21/2023 1 1 Specialty Diagnoses / Procedures Referred By Lam t Referred To Contact MR IMAGING Diagnoses Cognitive impairment, mild, so stated Procedures MRI 3D POST PROCESSING 3D RENDERING W/INTERP&POSTPROC DIFF WORK STATION Alonzo Cabrera MD, [address] [place] [address] Mr Imaging Referral ID Status Reason Start Date Expiration Date Visits Requested Visits Authorized [id number] Pending Review Auto-Generat ed Referral 02/08/2022 03/10/2023 1 1 Referral ID Status Reason Start Date Expiration Date V isits Requested Visits Authorized [id number] Closed Auto-Generate d Referral 12/22/2021 01/21/2023 1 1 Specialty Diagnoses / Procedures Referred By Lam t Referred To Contact Psychology Diagnoses Recurrent major 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) Procedures CONSULT TO PSYCHOLOGY OFFICE/OUTPATIENT [facility] 60-74 MINUTES Ebony Kaufman DO [address] [place] [address] Referral ID Status Reason Start Date Expiration Date Visits Requested Visits Authorized [id number] Pending Review PCP Requested Referral 04/10/2022 04/10/2023 1 1 Chief Complaint and Reason for Visit Chief Complaint g47.30 Additional Source Comments (unrecognized sect ion and content) No Status Records FoundNo Status Records FoundNo Status Records FoundNo Status Records FoundNo Status Records FoundNo Status Records Found INFORMATION SOURCE (unrecogn ized section and content) DATE CREATED AUTHOR [facility]05/2018 [facility] DATE CREATED AUTHOR AUTHOR'S ORGANIZ ATION 01/06/2020 [facility] DATE CREATED AUTHOR AUTHOR'S ORGANIZ ATION 03/25/2022 [facility] DATE CREATED AUTHOR AUTHOR'S ORGANIZ ATION 08/15/2022 [facility] DATE CREATED AUTHOR AUTHOR'S ORGANIZ ATION 12/19/2022 [facility] DATE CREATED AUTHOR AUTHOR'S ORGANIZ ATION 04/22/2023 [facility] Source Comments (unrecognize d section and content) In the event this informatio n is protected by the Federal Confidentiality of Alcohol and Drug Abuse Patient Records regulations: The Federal rules restrict any use of the information to criminally investigate or prosecute any alcohol or drug abuse patient.[facility] Center[facility] the event this information is protected by the Federal Confidentiality of Alcohol and Drug Abuse Patient Records regulations: The Federal rules restrict any use of the information to criminally investigate or prosecute any alcohol or drug abuse patient.[facility] Center[facility] the event this information is protected by the Federal Confidentiality of Alcohol and Drug Abuse Patient Records regulations: The Federal rules restrict any use of the information to criminally investigate or prosecute any alcohol or drug abuse patient.[facility] CenterIn the event this information is protected by the Federal Confidentiality of Alcohol and Drug Abuse Patient Records regulations: The Federal rules restrict any use of the information to criminally investigate or prosecute any alcohol or drug abuse patient.[facility] CenterIn the event this information is protected by the Federal Confidentiality of Alcohol and Drug Abuse Patient Records regulations: The Federal rules restrict any use of the information to criminally investigate or prosecute any alcohol or drug abuse patient.[facility] CenterIn the event this information is protected by the Federal Confidentiality of Alcohol and Drug Abuse Patient Records regulations: The Federal rules restrict any use of the information to criminally investigate or prosecute any alcohol or drug abuse patient.[facility] CenterIn the event this information is protected by the Federal Confidentiality of Alcohol and Drug Abuse Patient Records regulations: The Federal rules restrict any use of the information to criminally investigate or prosecute any alcohol or drug abuse patient.[facility] CenterIn the event this information is protected by the Federal Confidentiality of Alcohol and Drug Abuse Patient Records regulations: The Federal rules restrict any use of the information to criminally investigate or prosecute any alcohol or drug abuse patient.[facility] CenterIn the event this information is protected by the Federal Confidentiality of Alcohol and Drug Abuse Patient Records regulations: The Federal rules restrict any use of the information to criminally investigate or prosecute any alcohol or drug abuse patient.[facility] Reason for Visit (unrecogniz ed section and content) Reason Comments New Patient Memory loss Specialty Diagnoses / Procedures Referred By Contac t Referred To Contact MR IMAGING Diagnoses Cognitive impairment, mild, so stated 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) Depression, unspecified depression type Procedures MRI BRAIN WO IVCON MRI BRAIN BRAIN STEM W/[place] [address] [place] [address] Mr Imaging Referral ID Status Reason Start Date Expiration Date V isits Requested Visits Authorized [id number] Closed Auto-Generate d Referral 12/22/2021 01/21/2023 1 1 Reason Comments Spirometry Specialty Diagnoses / Procedures Referred By Contac t Referred To Contact [facility] Diagnoses Shortness of breath Procedures SPIROMETRY WITH DILATOR IF OBSTRUCTED BRNCDILAT RSPSE SPMTRY PRE&POST-BRNCDILAT ADMN Marisol Davis MD [address] [place] [address] Respiratory [place] [address] [place] [address] Referral ID Status Reason Start Date Expiration Date V isits Requested Visits Authorized [id number] Closed Auto-Generate d Referral 02/09/2022 03/10/2023 1 1 Reason Comments New Patient 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) 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 - Other In response to order placed in EPIC Reason Comments Established Patient Care Teams (unrecognized sec tion and content) Advertising Sales Consultant Relationship Specialty Start Date End Date [facility], [place] [address] [place] [address] NI Referring Team Psychiatry 12/21/21 Advertising Sales Consultant Relationship Specialty Start Date End Date [facility], [place] [address] [place] [address] NI Referring Team Psychiatry 12/21/21 Advertising Sales Consultant Relationship Specialty Start Date End Date [facility], [place] [address] [place] [address] NI Referring Team Psychiatry 12/21/21 Advertising Sales Consultant Relationship Specialty Start Date End Date [facility], [place] [address] [place] [address] NI Referring Team Psychiatry 12/21/21 Advertising Sales Consultant Relationship Specialty Start Date End Date [facility], [place] [address] [place] [address] NI Referring Team Psychiatry 12/21/21 Advertising Sales Consultant Relationship Specialty Start Date End Date [facility], [place] [address] [place] [address] NI Referring Team Psychiatry 12/21/21 Advertising Sales Consultant Relationship Specialty Start Date End Date [facility], [place] [address] [place] [address] NI Referring Team Psychiatry 12/21/21 Team Status: Inactive Member Role Status Dates Corona Monroe MD Attending Provider Active Daria Cardoza DO Primary Care Provider Active Team Status: Active Member Role Status Dates Daria Cardoza DO Primary Care Provider Active Advertising Sales Consultant Relationship Specialty Start Date End Date [facility], [place] [address] [place] [address] NI Referring Team Psychiatry 12/21/21 Goals (unrecognized [...] BE BASED ON THE PRIMARY CLINICAL RECORDS. [facility] [employer] provides no warranty or guarantee of the accuracy or completeness of information in this document.
== END 2023-09-05 14:38 | disposition home or self-care (01) ==
LOC: MRI 14:37
PROVIDERS: PCP Internal Medicine; Visit Provider Orthopaedic Surgery
DX: S42.295D Other nondisplaced fracture of upper end of left humerus, subsequent encounter for fracture with routine healing (principal); M75.122 Complete rotator cuff tear or rupture of left shoulder, not specified as traumatic
CPT/HCPCS: 73221

== ENCOUNTER 2023-09-23 08:40 | Outpatient (OUT) | payer BC, MEDICARE, SELFPAY ==
--- OUTSIDE RECORDS SUMMARY | 2023-09-23 08:46 | XMS_ITS | CCD ---
Author Name Unknown Address [address] [place] [address] Organization [facility] Care Team Providers Care Lead Electrical Engineer Name Role Phone AMBURN, JOMAR Unavailable Unavailable AMBURN, JOMAR Unavailable Unavailable AMBURN, JOMAR Unavailable Unavailable AMBURN, JOMAR Unavailable Unavailable AMBURN, JOMAR Unavailable Unavailable AMBURN, JOMAR Unavailable Unavailable Genesis, Thomas Unavailable Reuben Triana Unavailable Susannah Nevarez Unavailable Cristo Suazo Unavailable Cristo Suazo Unavailable Genesis, Thomas Unavailable Corona Monroe Unavailable Genesis, Thomas Unavailable MD Corona Monroe Attending Provider [phone] DO Daria Cardoza Primary Care Provider Genesis, Thomas Unavailable Nadira Choi Unavailable Lisseth Toscano Unavailable EBONY KAUFMAN Attending Unavailable EBONY KAUFMAN Referring Unavailable EBONY KAUFMAN Attending Unavailable JESSIE LAY Referring Unavailable JESSIE LAY Attending Unavailable Genesis, Thomas Unavailable SHAIKH Randolph GRIMES Consulting Unavailable SHAIKH Randolph GRIMES Primary Care Unavailable SHAIKH Randolph GRIMES Admitting Unavailable SHAIKH Randolph GRIMES Attending Unavailable SHAIKH Randolph GRIMES Primary Care [facility] FL[facility] Attending Unavailable [facility] FLORES Consulting Unavailable VALERIE, DR FLORES Admitting Unavailable BAKHOUS, AZIZ Admitting Unavailable BAKUSAMAS AZIZ Attending Unavailable MANDO AZIZ Consulting Unavailable NON STAFF Primary Care Unavailable Lucy Cope N Admitting Unavailable Lucy Cope Attending Unavailable Chasoila, Kamal Admitting Unavailable Chaban Kamal Attending Unavailable Daria Cardoza Primary Care Unavailable SHAIKH GRIMES Attending Unavailable Shaikh Grimes MD Primary Care Provider Medications Current Medications Medication Drug Class(es) Dates Sig (Normalized) Sig (Original) amLODIPine 5 mg oral tablet (20 sources) Dihydropyridine Calcium Channel Kelsy Start: 10-22-2019 End: 12-18-2023 take 1 tablet by mouth in the morning amLODIPine (Norvasc) 5 MG tablet Indications: Primary hypertension (CMS/HCC) Take 1 tablet (5 mg) by mouth in the morning and 1 tablet (5 mg) before bedtime. 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 90 tablet 0 09/19/2023 12/18/2023 Active aspirin, enteric coated (ASPIRIN, ENTERIC COATED) 81 mg EC tablet q 24 HR. 0 Active take 1 tablet by mouth once shonna y Aspirin Adult Low Dose 81 MG 1 tablet Orally Once a day Active Comment on above: q 24 HR. atorvastatin 80 mg oral tablet (20 sources) HMG-CoA Reductase Inhibitor Start: 10-22-19 End: 12-18-19 take 1 tablet by mouth in the morning atorvastatin (Lipitor) 80 MG tablet Indications: Other hyperlipidemia (CMS/HCC) Take 1 tablet (80 mg) by mouth in the morning. 90 tablet 0 09/19/2023 12/18/2023 Active Comment on above: atorvastatin 80 mg t ablet TAKE 1 TABLET BY MOUTH EVERY DAY 24 hr buPROPion hydrochloride 300 mg extended release oral tablet (20 sources) Aminoketone Start: 09-19-19 End: 12-18-19 take 1 tablet by mouth every twenty-four hours in the morning buPROPion XL (Wellbutrin XL) 300 MG 24 hr tablet Indications: Recurrent major 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) (CMS/HCC) Take 1 tablet (300 mg) by mouth in the morning. Do not crush, chew, or split.. 90 tablet 0 09/19/2023 12/18/2023 Active Start: 12-04-2021 End: 04-10-2022 take 1 tablet by mouth once daily [...] MATT TH EVERY DAY IN THE MORNING busPIRone hydrochloride 15 mg oral tablet (20 sources) Start: 0 End: 4 take 1 tablet by mouth in the morning busPIRone (Buspar) 15 MG tablet Indications: Recurrent major 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) (CMS/HCC) Take 1 tablet (15 mg) by mouth in the morning and 1 tablet (15 mg) before bedtime. 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 180 tablet 0 09/19/2023 12/18/2023 Active Comment on above: famotidine 20 mg tab let TAKE 1 TABLET BY MOUTH EVERY DAY AT BEDTIME NEEDED fenofibrate 43 mg oral capsule (20 sources) Peroxisome Proliferator Receptor alpha Agonist Start: 10-22-2019 End: 12-18-2023 take 1 capsule by mouth at mealtime fenofibrate micronized (Antara) 43 MG capsule Indications: Other hyperlipidemia (CMS/HCC) Take 1 capsule (43 mg) by mouth in the morning. Take with meals. 90 capsule 0 09/19/2023 12/18/2023 Active Comment on above: Take 43 mg by mouth twice daily. Fish Oils (20 sources) take 1 capsule [...] / vilanterol 0.025 mg/actuat dry powder inhaler (12 sources) Anticholinergic, Corticosteroid, beta2-Adrenergic Agonist Start: End: take 1 puff(s) by inhalation in the morning Fluticasone-Umecli din-Vilant (Trelegy Ellipta) 100-62.5-25 MCG/ACT aerosol powder Indications: Chronic obstructive pulmonary disease, unspecified COPD type ([facility]) Inhale 1 puff in the morning. 90 each 0 09/19/2023 12/18/2023 Active Start: 02-27-2022 take 1 puff(s) by in halation once daily Trelegy Ellipta 100-62.5-25 MCG/INH 1 puff Inhalation Once a day for 30 days Feb, Active End: 09-19-2023 Oononveooai-Spvpifkzl-Xdddtr (Trelegy Ellipta) 100-62.5-25 MCG/ACT aerosol powder Inhale 0 09/19/2023 Discontinued (Reorder) 30 actuat fluticasone furoate 0.1 mg/actuat / vilanterol 0.025 mg/actuat dry powder inhaler (14 sources) Corticosteroid, beta2-Adrenergic Agonist Start: 09-13-2020 Fluticasone Furoate-Vilanterol (Breo Ellipta) 100-25 mcg/dose blister [...] oral tablet (20 sources) Nitrate Vasodilator Start: End: take 1 tablet by mouth every twenty-four hours in the morning isosorbide mononitrate ER (Imdur) 60 MG 24 hr tablet Indications: 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 Do not crush or chew.. 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 180 tablet 0 09/19/2023 12/18/2023 Active Start: 10-22-2019 take 50 mg by mouth once daily Metoprolol Succinate Active 50 MG PO Daily October 22, 2019 12:00am take 1 tablet by [facility] every twelve hours Metoprolol Succinate ER 50 MG 1 tablet Orally twice a day for 90 days Active take 1 capsule by mo [facility] twice daily Metoprolol Succinate 50 MG 1 capsule Orally [...] PRN Active nitroglycerin 0.4 mg sublingual tablet (12 sources) Nitrate Vasodilator Start: 10-22-2019 Nitroglyce rin Active 0.4 MG SUBLINGUAL every 5 to 15 minutes October 22, 2019 12:00am nitroglycerin toscano blingual (NITROQUICK) 0.4 mg SL tablet nitroglycerin 0.4 mg sublingual tablet 0 Active Comment on above: nitroglycerin 0.4 mg sublingual tablet OLANZapine 7.5 mg oral tablet (20 sources) Atypical Antipsychotic Start: 4 End: 4 take 1 tablet by mouth at bedtime OLANZapine (ZyPREXA) 7.5 MG tablet Indications: Recurrent major 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) (CMS/HCC) Take 1 tablet (7.5 mg) by mouth at bedtime 90 tablet 0 09/19/2023 12/18/2023 Active Start: 10-22-2019 take 5 mg by mouth o nce daily at bedtime Olanzapine Active 5 MG PO Daily at bedtime October 22, 2019 12:00am Comment on above: olanzapine 5 mg tabl et TAKE 1 TABLET BY MOUTH EVERY DAY AT BEDTIME [place]-3 Fatty Acids (1 source) Start: 09-13-2020 take 1000 mg by mouth once daily [place]-3 Fatty Acids Active 1000 MG PO Daily September 13, 2020 1:00am Paxlovid 10 x 150 MG & 10 x 100MG (1 source) Start: 03-07-2022 Paxlovid 10 x 150 MG & 10 x 100MG as directed Orally Twice a day for 5 days Feb, Active sertraline 100 mg oral tablet (20 sources) Serotonin Reuptake Inhibitor Start: 09-19-2023 End: 12-18-2023 take 2 tablets by mouth at bedtime sertraline (Zoloft) 100 MG tablet Indications: Major Depressive Disorder Take 2 tablets (200 mg) by mouth at bedtime 180 tablet 0 09/19/2023 12/18/2023 Active Start: 10-22-2019 take 100 mg by mouth once shonna y Sertraline Active 100 MG PO Daily October 22, 2019 12:00am take 1.5 tablets by mouth once daily Sertraline HCl 100 MG 1.5 tablet Orally [...] mg tablet Active 50 MG PO Q6H 10 03September 30, 2020 1:00am 1/2 - 1 tab po q 6 hours prn pain traZODone hydrochloride 100 mg oral tablet (20 sources) Serotonin Reuptake Inhibitor Start: 10-22-2019 End: 12-18-2023 take 1 tablet by mouth at bedtime traZODone (Desyrel) 100 MG tablet Indications: Recurrent major 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) (CMS/HCC) , EDITH (generalized anxiety disorder) (CMS/HCC) Take 1 tablet (100 mg) by mouth at bedtime 90 tablet 0 09/19/2023 12/18/2023 Active Comment on above: Take 100 mg [...] Drug Class(es) Dates Sig (Normalized) Sig (Original) [id number] 200 actuat albuterol 0.09 mg/actuat metered dose [...] day(s) PRN Jul, Not-Taking Start: 08-01-2020 take 2 puff(s) by in halation every four hours for wheezing albuterol HFA 90 mcg/act inhaler Inhale 2 puffs every 4 (four) hours if needed for wheezing 0 Active take 1 puff(s) by mo uth every four hours as needed Albuterol Sulfate HFA 108 (90 Base) MCG/ACT INHALE 1 PUFF BY MOUTH EVERY 4 HOURS NEEDED for 30 PRN Active Comment on above: albuterol sulfate HF A 90 mcg/actuation aerosol inhaler INHALE 1 PUFF BY MOUTH EVERY 4 HOURS NEEDED INHALE 1 PUFF BY MATT EVERY 4 HOURS NEEDED doxepin hydrochloride 50 mg oral capsule (18 sources) Tricyclic Antidepressant Start: take 1 capsule by mouth every twenty-four hours Doxepin HCl 100 MG 1 capsule at bedtime Orally Once a day for 30 days Nov, Active Start: 12-04-2021 take 1 capsule by mo uth every twenty-four hours Doxepin HCl 25 MG 1 capsule at bedtime Orally Once a day for 30 day(s) Nov, Active Start: 12-04-2021 End: 08-15-2022 doxepin capsule 50 mg lisinopril 10 mg oral tablet (9 sources) [...] 50 PLUS) tab (9 sources) End: 08-15-2022 Gpyqyrlijmgjz-Orvzkiyz-Wgww in (MULTIVITAMIN 50 PLUS) tab Take 1 tablet by mouth once daily. 0 08/15/2022 Discontinued Multivitamins-Mi nerals-Lutein (MULTIVITAMIN 50 PLUS) tab Take 1 tablet by mouth once daily. 0 Active Comment on above: Take 1 tablet by matt th once daily. omega 0-ddj-dqt-fish oil (FISH OIL) 100-160-1,000 mg cap (9 [...] Generalized anxiety disorder; Translations: [Generalized anxiety disorder] Onset: 09-19-2023 09-19-2023 Chronic Cancer of bronchus; lung (20 sources) History of malignant neoplasm of thoracic cavity structure; Translations: [Personal history of other malignant neoplasm of bronchus and lung] Onset: 02-27-2022 Resolved: 02-27-2022 Episodic Chronic kidney disease (20 sources) Chronic kidney disease stage 3; Translations: [Chronic kidney disease, stage 3 (moderate)] Onset: 09-19-2023 09-19-2023 Chronic Chronic obstructive pulmonary disease and bronchiectasis [...] Chronic Coronary atherosclerosis and other heart disease (8 sources) 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; Translations: [Coronary arteriosclerosis] Onset: 07-27-2022 Chronic Delirium, dementia, and amnestic and other cognitive disorders (3 sources) Dementia associated with another disease; Translations: [Dementia in other diseases classified elsewhere with behavioral disturbance] Onset: 12-22-2021 Chronic Disorders of lipid metabolism (20 sources) Hyperlipidemia; Translations: [Hyperlipidemia, unspecified] Onset: 05-23-2021 Resolved: 05-23-2021 Chronic Esophageal disorders (4 sources) Gastroesophageal reflux disease without esophagitis; Translations: [Gastro-esophageal reflux disease without esophagitis] Onset: 09-19-2023 09-19-2023 Chronic Essential hypertension (20 sources) Essential hypertension; Translations: [Essential (primary) hypertension] Onset: 12-26-2021 Resolved: 12-26-2021 Chronic Fluid and electrolyte disorders (3 sources) Hyperkalemia; Translations: [HYPERKALEMIA] Onset: 07-11-2022 Episodic Fracture of upper limb (2 sources) Closed fracture proximal humerus, greater tuberosity; Translations: [Nondisplaced fracture of greater tuberosity of left humerus, subsequent encounter for fracture with routine healing] Onset: 09-19-2023 09-19-2023 Episodic Heart valve disorders (1 source) Nonrheumatic [...] Other hereditary and degenerative nervous system conditions (10 sources) Impaired cognition; Translations: [Mild cognitive impairment, [...] [part of] Onset: 02-27-2022 Resolved: 02-27-2022 Episodic Sprains and strains (4 sources) Strain of muscle(s) and tendon(s) of the rotator cuff of left shoulder, subsequent encounter; Translations: [Other specified aftercare] Onset: 09-19-2023 09-19-2023 Episodic Unclassified (1 source) Established Patient Onset: [...] Reference Range Facility CT abdomen pelvis wo conon 0 04-09-2023 CT abdomen pelvis wo [facility] [place] [address] [place] [address] CT Scan Report Signed Patient: Kel Castillo Jr MR#: [id number] : 1955 Acct:[id number] Age/Sex: 67 / M ADM Date: 04/09/23 Loc: ER Room: Type: [facility] ER Attending Dr: Copies to: Lucy [...] Damien Negrete M.D.04/09/2023 2:28 PM Dictation Location: [place] [address] Transcribed By: [facility] 04/09/23 142 Dictated By: Damien Negrete DO 04/09/23 142 Signed By: 04/09/23 1428 Normal [facility] Complete Blood Count Auto Di ffon 04-09-2023 Basophils (Bld) [#/Vol] 0.1 10*3/uL Normal 0.0-0.2 [facility] Comment on above: Result Comment: PERF ORMED BY: [place] [address] PATHOLOGIST FEED ELEVATOR WORKER TROY SIGALA M.D. Performed By: #### C BC #### [address] Basophils/100 WBC (Bld) 1.0 % Normal . [facility] Comment on above: Performed By: #### C BC #### [place] [address] [place] Eosinophils (Bld) [#/Vol] 0.2 10*3/uL Normal 0.0-0.45 [facility] Comment on above: Performed By: #### C BC #### [address] Eosinophils/100 WBC (Bld) 2.8 % Normal . [facility] Comment on above: Performed By: #### C BC #### [address] Erythrocyte distribution width (RBC) [Ratio] 14.5 % Normal 12.0-14.8 [facility] Comment on above: Performed By: #### C BC #### [address] Hematocrit (Bld) [Volume fraction] 39.2 % Normal 38.8-50.0 [facility] Comment on above: Performed By: #### C BC #### [address] Hemoglobin (Bld) [Mass/Vol] 13.0 g/dL Normal 13.0-17.0 [facility] Comment on above: Performed By: #### C BC #### [address] Lymphocytes (Bld) [#/Vol] 1.1 10*3/uL Normal 1.00-4.8 [facility] Comment on above: Performed By: #### C BC #### [address] Lymphocytes/100 WBC (Bld) 14.1 % Normal . [facility] Comment on above: Performed By: #### C BC #### [address] MCH (RBC) [Entitic mass] 30.4 pg Normal 27.5-35.2 [facility] Comment on above: Performed By: #### C BC #### [address] MCV (RBC) [Entitic vol] 91.5 fL Normal 83.5-101 [facility] Comment on above: Performed By: #### C BC #### [address] Mean Corpuscular HGB Conc 33.2 g/dL Normal 32.5-35.6 [facility] Comment on above: Performed By: #### C BC #### [address] Monocytes (Bld) [#/Vol] 0.5 10*3/uL Normal 0.0-0.8 [facility] Comment on above: Performed By: #### C BC #### [facility] [address] [place] [address] [place] Monocytes/100 WBC (Bld) 16.97 % Normal 0.00-20.00 [facility] Comment on above: Performed By: #### C BC #### [facility] [address] Monocytes/100 WBC (Bld) 6.6 % Normal . [facility] Comment on above: Performed By: #### C BC #### [facility] [address] Neutrophils (Bld) [#/Vol] 5.9 10*3/uL Normal 1.8-7.7 [facility] Comment on above: Performed By: #### C BC #### [address] Neutrophils/100 WBC (Bld) 75.5 % Normal . [facility] Comment on above: Performed By: #### C BC #### [facility] [address] NRBC% 0.0 /100{WBC} Normal 0-0.5 [facility] Comment on above: Performed By: #### C BC #### [address] Platelet mean volume (Bld) [Entitic vol] 7.5 fL Normal 6.6-10.1 [facility] Comment on above: Performed By: #### C BC #### [place] [address] [place] Platelets (Bld) [#/Vol] 180 10*3/uL Normal 150-450 [facility] Comment on above: Performed By: #### C BC #### [place] [address] [place] RBC (Bld) [#/Vol] 4.29 10*6/uL Normal 3.90-5.60 [facility] Comment on above: Performed By: #### C BC #### [facility] [address] WBC (Bld) [#/Vol] 7.8 10*3/uL Normal 4.1-10.5 [facility] Comment on above: Performed By: #### C BC #### [address] Comprehensive Metabolic Pane noe 04-09-2023 Albumin [Mass/Vol] 4.3 g/dL Normal 3.5-5.7 [facility] Comment on above: Performed By: #### P TT, LIPASE, PT, CMP #### [address] Albumin/Globulin [Mass ratio] 1.2 {ratio} Normal [facility] Comment on above: Performed By: #### P TT, LIPASE, PT, CMP #### [address] ALP [Catalytic activity/Vol] 105 U/L High 34-104 [facility] Comment on above: Performed By: #### P TT, LIPASE, PT, CMP #### [address] ALT [Catalytic activity/Vol] 61 U/L High 7-52 [facility] Comment on above: Performed By: #### P TT, LIPASE, PT, CMP #### [address] Anion gap [Moles/Vol] 12.5 mmol/L Normal 6.0-15.0 [facility] Comment on above: Performed By: #### P TT, LIPASE, PT, CMP #### [address] AST [Catalytic activity/Vol] 62 U/L High 13-39 [facility] Comment on above: Performed By: #### P TT, LIPASE, PT, CMP #### [address] Bilirubin [Mass/Vol] 0.8 mg/dL Normal 0.3-1.0 [facility] Comment on above: Performed By: #### P TT, LIPASE, PT, CMP #### [facility] [address] Calcium [Mass/Vol] 9.0 mg/dL Normal 8.6-10.3 [facility] Comment on above: Performed By: #### P TT, LIPASE, PT, CMP #### [address] Chloride [Moles/Vol] 107 mmol/L Normal 98-107 [facility] Comment on above: Performed By: #### P TT, LIPASE, PT, CMP #### [address] CO2 [Moles/Vol] 25.1 mmol/L Normal 21.0-31.0 [facility] Comment on above: Performed By: #### P TT, LIPASE, PT, CMP #### [address] Creatinine [Mass/Vol] 1.76 mg/dL High 0.70-1.30 [facility] Comment on above: Performed By: #### P TT, LIPASE, PT, CMP #### [address] Creatinine Clr Calc Pharmacy 40.17 [facility] Comment on above: Performed By: #### P TT, LIPASE, PT, CMP #### [address] GFR/1.73 sq M.predicted MDRD (S/P/Bld) [Vol rate/Area] 41.342 mL/min/{1.73_m2} [facility] Comment on above: Performed By: #### P TT, LIPASE, PT, CMP #### [address] Globulin (S) [Mass/Vol] 3.7 g/dL [facility] Comment on above: Performed By: #### P TT, LIPASE, PT, CMP #### [address] Glucose [Mass/Vol] 89 mg/dL Normal 70-100 [facility] Comment on above: Result Comment: [facility] Glucose Reference Range is dependent on time and content of last meal. Glucose of more than 200 mg/dL in a nonstressed, ambulatory subject supports the diagnosis of Diabetes Mellitus. ADA recommended reference range Performed By: #### P TT, LIPASE, PT, CMP #### [address] Potassium [Moles/Vol] 4.6 mmol/L Normal 3.5-5.1 [facility] Comment on above: Performed By: #### P TT, LIPASE, PT, CMP #### [address] Protein [Mass/Vol] 8.0 g/dL Normal 6.4-8.9 [facility] Comment on above: Performed By: #### P TT, LIPASE, PT, CMP #### [place] [address] [place] Sodium [Moles/Vol] 140 mmol/L Normal 136-145 [facility] Comment on above: Performed By: #### P TT, LIPASE, PT, CMP #### [place] [address] [place] Urea nitrogen [Mass/Vol] 25 mg/dL Normal 7-25 [facility] Comment on above: Performed By: #### P TT, LIPASE, PT, CMP #### [place] [address] [place] Dipstick and Microscopicon 0 04-09-2023 Appearance (U) Cloudy Critically abnormal Clear [facility] Comment on above: Order Comment: Name Collection Type:: Clean-Voided Midstream Performed By: #### A DDONUAPLUS #### [place] [address] [place] Bacteria,Urine None Seen Normal None Seen [facility] Comment on above: Order Comment: Name Collection Type:: Clean-Voided Midstream Performed By: #### A DDONUAPLUS #### [place] [address] [place] Bilirubin,Urine Negative Normal Negative [facility] Comment on above: Order Comment: Name Collection Type:: Clean-Voided Midstream Performed By: #### A DDONUAPLUS #### [place] [address] [place] Color (U) Yellow Normal Yellow [facility] Comment on above: Order Comment: Name Collection Type:: Clean-Voided Midstream Performed By: #### A DDONUAPLUS #### [place] [address] [place] Glucose Ql (U) Normal Normal Normal [facility] Comment on above: Order Comment: Name Collection Type:: Clean-Voided Midstream Performed By: #### A DDONUAPLUS #### [address] Hyaline Casts,Urine None Seen Normal 0-8 [facility] Comment on above: Order Comment: Name Collection Type:: Clean-Voided Midstream Result Comment: PERF ORMED BY: [place] [address] PATHOLOGIST FEED ELEVATOR WORKER TROY SIGALA M.D. Performed By: #### A DDONUAPLUS #### [place] [address] [place] Ketones Ql (U) Negative Normal Negative [facility] Comment on above: Order Comment: Name Collection Type:: Clean-Voided Midstream Performed By: #### A DDONUAPLUS #### [place] [address] [place] Leukocyte esterase Test strip Ql (U) Negative Normal Negative [facility] Comment on above: Order Comment: Name Collection Type:: Clean-Voided Midstream Performed By: #### A DDONUAPLUS #### [place] [address] [place] Nitrite,Urine Negative Normal Negative [facility] [facility] Comment [facility]: Order Comment: Name Collection Type:: Clean-Voided Midstream Performed By: #### A DDONUAPLUS #### [place] [address] [place] Occult Blood,Urine Negative Normal Negative [facility] Comment on above: Order Comment: Name Collection Type:: Clean-Voided Midstream Result Comment: PERF ORMED BY: [place] [address] PATHOLOGIST FEED ELEVATOR WORKER TROY SIGALA M.D. Performed By: #### A DDONUAPLUS #### [address] pH (U) 5.5 [pH] Normal 5.0-9.0 [facility] Comment on above: Order Comment: Name Collection Type:: Clean-Voided Midstream Performed By: #### A DDONUAPLUS #### [address] Protein,Urine Negative Normal Negative [facility] Comment on above: Order Comment: Name Collection Type:: Clean-Voided Midstream Performed By: #### A DDONUAPLUS #### [address] RBC LM.HPF (Urine sed) [#/Area] 0 /[HPF] Normal 0-4 [facility] Comment on above: Order Comment: Name Collection Type:: Clean-Voided Midstream Performed By: #### A DDONUAPLUS #### [address] Specificy Petros,Urine 1.014 Normal 1.001-1.030 [facility] Comment on above: Order Comment: Name Collection Type:: Clean-Voided Midstream Performed By: #### A DDONUAPLUS #### [address] Squamous Epithelial Cell,Urine None Seen Normal 0-2 [facility] Comment on above: Order Comment: Name Collection Type:: Clean-Voided Midstream Performed By: #### A DDONUAPLUS #### [address] Urobilinogen,Urine Normal Normal Normal [facility] Comment on above: Order Comment: Name Collection Type:: Clean-Voided Midstream Performed By: #### A DDONUAPLUS #### [address] WBC LM.HPF (Urine sed) [#/Area] 0 /[HPF] Normal 0-4 [facility] Comment on above: Order Comment: Name Collection Type:: Clean-Voided Midstream Performed By: #### A DDONUAPLUS #### [address] Lipaseon 04-09-2023 Lipase [Catalytic activity/Vol] 92.0 U/L High 11.0-82.0 [facility] Comment on above: Result Comment: PERF ORMED BY: [place] [address] PATHOLOGIST FEED ELEVATOR WORKER TROY SIGALA M.D. Performed By: #### P TT, LIPASE, PT, CMP #### [address] Partial Thromboplastin Timeo n 04-09-2023 aPTT Coag (Bld) [Time] 30.9 s Normal 25.1-36.5 [facility] Comment on above: Result Comment: PERF ORMED BY: [place] [address] PATHOLOGIST FEED ELEVATOR WORKER TROY SIGALA M.D. Performed By: #### P TT, LIPASE, PT, CMP #### [address] Prothrombin Time INRon 04-09 INR Coag (PPP) [Relative time] 1.0 {INR} Normal [facility] Comment on above: Result Comment: INR [...] #### P TT, LIPASE, PT, CMP #### [address] PT Coag (PPP) [Time] 11.9 s Normal 9.0-12.9 [facility] Comment on above: Performed By: #### P TT, LIPASE, PT, CMP #### [facility] [address] [id number] [facility] CNOVon 08-15-2022 CNOV Office Visit (NEADFV ) SAMIR CASTILLO ([id number]) 1955 M Date Time Provider Department 08/15/22 4:00 PM EBONY KAUFMAN During your visit today, we recorded the following information about you: Pulse Blood pressure Weight Height 61/minute 148/78 89.8 kg 1.676 m Ebony Kaufman DO 08/15/2022 5:31 PM Signed [facility] Follow up/ Established patient visit Individuals who were included in, or assisted with the encounter were: Samir Castillo Ebony Kaufman DO Chief Complaint/Issues: Samir Castillo is a 67 year old male seen in the [facility] for: Follow-up Most [...] tablet by (more content not included)... Normal [facility] CBC AUTO DIFFon 07-27-2022 BASO # 0.1 103/ul Normal 0.0-0.1 [facility] Comment on above: Performed By: #### C BC #### [facility] [address] [address] [address] Hattie Newsome Basophils/100 WBC (Bld) 0.8 % Normal 0.2-2.0 [facility] Comment on above: Performed By: #### C BC #### [facility] [id number] Hattie Newsome EO # 0.3 103/ul Normal 0.0-0.7 [facility] Comment on above: Performed By: #### C BC #### [facility] [address] [address] [address] Hattie Newsome Eosinophils/100 WBC (Bld) 3.2 % Normal 0.9-7.0 [facility] Comment on above: Performed By: #### C BC #### [facility] [address] [place] [address] Dr. Hattie Newsome Erythrocyte distribution width (RBC) [Ratio] 14.3 % Normal 11.0-15.0 [facility] Comment on above: Performed By: #### C BC #### [facility] [address] [place] [address] Dr. Hattie Newsome Hematocrit (Bld) [Volume fraction] 39.7 % Critically low 42.0-54.0 [facility] Comment on above: Performed By: #### C BC #### [facility] [address] [place] [address] Dr. Hattie Newsome Hemoglobin (Bld) [Mass/Vol] 13.0 g/dL Critically low 14.0-18.0 [facility] Comment on above: Performed By: #### C BC #### [facility] [address] [place] [address] Dr. Hattie Newsome IG # 0.06 10e3/ul Critically high 0.00-0.03 [facility] Comment on above: Performed By: #### C BC #### [facility] [address] [place] [address] Dr. Hattie Newsome IG % 0.8 % Critically high 0.0-0.5 [facility] Comment on above: Performed By: #### C BC #### [facility] [address] [place] [address] Dr. Hattie Newsome LYMPH # 1.3 103/ul Normal 1.2-3.8 [facility] Comment on above: Performed By: #### C BC #### [facility] [address] [place] [address] Dr. Hattie Newsome Lymphocytes/100 WBC (Bld) 16.8 % Critically low 20.5-60.0 [facility] Comment on above: Performed By: #### C BC #### [facility] [address] [place] [address] Dr. Hattie Newsome MANUAL DIFF REQ NO Normal [facility] Comment on above: Performed By: #### C BC #### [facility] [address] [place] [address] Dr. Hattie Newsome MCH (RBC) [Entitic mass] 30.5 pg Normal 25.9-34.0 [facility] Comment on above: Performed By: #### C BC #### [facility] [address] [place] [address] Dr. Hattie Newsome MCHC (RBC) [Mass/Vol] 32.7 g/dL Normal 29.9-35.2 [facility] Comment on above: Performed By: #### C BC #### [facility] [address] [place] [address] Dr. Hattie Newsome MCV (RBC) [Entitic vol] 93.2 fL Normal 80.0-94.0 [facility] Comment on above: Performed By: #### C BC #### [facility] [address] [place] [address] Dr. Hattie Newsome MONO # 0.5 103/ul Normal 0.3-0.8 [facility] Comment on above: Performed By: #### C BC #### [facility] [address] [place] [address] Dr. Hattie Newsome Monocytes/100 WBC (Bld) 7.0 % Normal 1.7-12.0 [facility] Comment on above: Performed By: #### C BC #### [facility] [address] [place] [address] Dr. Hattie Newsome NEUT # 5.5 103/ul Normal 1.4-6.5 [facility] Comment on above: Performed By: #### C BC #### [facility] [address] [place] [address] Dr. Hattie Newsome Neutrophils/100 WBC (Bld) 71.4 % Normal 43.0-75.0 [facility] Comment on above: Performed By: #### C BC #### [facility] [address] [address] [address] Hattie Newsome Platelet mean volume (Bld) [Entitic vol] 9.4 fL Critically low 9.5-13.5 [facility] Comment on above: Performed By: #### C BC #### [facility] [address] [address] [address] Hattie Newsome PLT 169 103/ul Normal 150-450 [facility] Comment on above: Performed By: #### C BC #### [facility] [address] [address] [address] Hattie Newsome RBC 4.26 106/ul Critically low 4.70-6.10 [facility] Comment on above: Performed By: #### C BC #### [facility] [address] [place] [address] Dr. Hattie Newsome WBC 7.7 103/ul Normal 4.0-11.0 [facility] Comment on above: Performed By: #### C BC #### [facility] [address] [place] [address] Dr. Hattie Newsome LIPID PROFILEon 07-27-2022 CHOL-HDL RATIO NORM SEE BELOW Normal [facility] Comment on above: Result Comment: 3.3 - 4.4 LOW RISK 4.4 - 7.1 AVERAGE RISK 7.1 - 11.0 MODERATE RISK >11.0 HIGH RISK Performed By: #### L IPID #### [facility] [address] [place] [address] Dr. Hattie Newsome Cholesterol [Mass/Vol] 131 mg/dL Normal <=200 [facility] Comment on above: Performed By: #### L IPID #### [facility] [address] [address] [address] Hattie Newsome Cholesterol in HDL [Mass/Vol] 40 mg/dL Normal 40-60 [facility] Comment on above: Performed By: #### L IPID #### [facility] [address] [address] [address] Hattie Newsome Cholesterol in LDL [Mass/Vol] 64.6 mg/dL Normal [facility] Comment on above: Performed By: #### L IPID #### [facility] [address] [address] [address] Hattie Newsome Cholesterol.total/ Cholesterol in HDL [Mass ratio] 3.3 {ratio} Normal [facility] Comment on above: Performed By: #### L IPID #### [facility] [address] [address] [address] Hattie Newsome HDL NORMAL > or = 60 mg/dl - LO W CARDIOVASCULAR RISK <40 mg/dl - HIGH CARDIOVASCULAR RISK Normal [facility] Comment on above: Performed By: #### L IPID #### [facility] [address] [place] [address] Dr. Hattie Newsome LDL CALC NORMAL SEE BELOW Normal [facility] Comment on above: Result Comment: <100 mg/dl OPTIMAL 100 - 129 mg/dl NEAR OR ABOVE OPTIMAL 130 - 159 mg/dl BORDERLINE HIGH 160 - 189 mg/dl HIGH >190 mg/dl VERY HIGH Performed By: #### L IPID #### [facility] [address] [place] [address] Dr. Hattie Newsome Triglyceride [Mass/Vol] 132 mg/dL Normal <=150 [facility] Comment on above: Performed By: #### L IPID #### [facility] [address] [place] [address] Dr. Hattie Newsome VLDL CALC 26.4 mg/dL Normal [facility] Comment on above: Performed By: #### L IPID #### [facility] [address] [place] [address] Dr. Hattie Newsome PARATHYROID HORMONE- RELATED PEPTIDEon 07-15-2022 PTHrP (PTH-Related Peptide) <2.0 Normal [facility] Comment on above: Result Comment: This test was developed and its performance characteristics determined by [employer]. It has not been cleared or approved [...] laboratory. Performed By: #### P THP #### [facility] [address] [place] [address] Dr. Hattie Newsome CBC AUTO DIFFon 07-07-2022 BASO # 0.1 103/ul Normal 0.0-0.1 [facility] Comment on above: Performed By: #### U BLANCA, CMP, MG #### [facility] [address] [place] [address] Dr. Hattie Newsome Basophils/100 WBC (Bld) 0.9 % Normal 0.2-2.0 [facility] Comment on above: Performed By: #### U BLANCA, CMP, MG #### [facility] [address] [place] [address] Dr. Hattie Newsome EO # 0.2 103/ul Normal 0.0-0.7 [facility] Comment on above: Performed By: #### U BLANCA, CMP, MG #### [facility] [address] [place] [address] Dr. Hattie Newsome Eosinophils/100 WBC (Bld) 3.4 % Normal 0.9-7.0 [facility] Comment on above: Performed By: #### U BLANCA, CMP, MG #### [facility] [address] [place] [address] Dr. Hattie Newsome Erythrocyte distribution width (RBC) [Ratio] 14.5 % Normal 11.0-15.0 [facility] Comment on above: Performed By: #### U BLANCA, CMP, MG #### [facility] [address] [place] [address] Dr. Hattie Newsome Hematocrit (Bld) [Volume fraction] 40.1 % Critically low 42.0-54.0 [facility] Comment on above: Performed By: #### U BLANCA, CMP, MG #### [facility] [address] [place] [address] Dr. Hattie Newsome Hemoglobin (Bld) [Mass/Vol] 13.6 g/dL Critically low 14.0-18.0 [facility] Comment on above: Performed By: #### U BLANCA, CMP, MG #### [facility] [address] [address] [address] Hattie Newsome IG # 0.04 10e3/ul Critically high 0.00-0.03 [facility] Comment on above: Performed By: #### U BLANCA, CMP, MG #### [facility] [address] [address] [address] Hattie Newsome IG % 0.6 % Critically high 0.0-0.5 [facility] Comment on above: Performed By: #### U BLANCA, CMP, MG #### [facility] [address] [address] [address] Hattie Newsome LYMPH # 0.9 103/ul Critically low 1.2-3.8 [facility] Comment on above: Performed By: #### U BLANCA, CMP, MG #### [facility] [address] [place] [address] Dr. Hattie Newsome Lymphocytes/100 WBC (Bld) 13.1 % Critically low 20.5-60.0 [facility] Comment on above: Performed By: #### U BLANCA, CMP, MG #### [facility] [address] [address] [address] Hattie Newsome MANUAL DIFF REQ NO Normal [facility] Comment on above: Performed By: #### U BLANCA, CMP, MG #### [facility] [address] [place] [address] Dr. Hattie Newsome MCH (RBC) [Entitic mass] 30.9 pg Normal 25.9-34.0 [facility] Comment on above: Performed By: #### U BLANCA, CMP, MG #### [facility] [address] [address] [address] Hattie Newsome MCHC (RBC) [Mass/Vol] 33.9 g/dL Normal 29.9-35.2 [facility] Comment on above: Performed By: #### U BLANCA, CMP, MG #### [facility] [address] [address] [address] Hattie Newsome MCV (RBC) [Entitic vol] 91.1 fL Normal 80.0-94.0 [facility] Comment on above: Performed By: #### U BLANCA, CMP, MG #### [facility] [address] [address] [address] Hattie Newsome MONO # 0.3 103/ul Normal 0.3-0.8 [facility] Comment on above: Performed By: #### U BLANCA, CMP, MG #### [facility] [address] [address] [address] Hattie Newsome Monocytes/100 WBC (Bld) 5.1 % Normal 1.7-12.0 [facility] Comment on above: Performed By: #### U BLANCA, CMP, MG #### [facility] [address] [place] [address] Dr. Hattie Newsome NEUT # 5.0 103/ul Normal 1.4-6.5 [facility] Comment on above: Performed By: #### U BLANCA, CMP, MG #### [facility] [address] [place] [address] Dr. Hattie Newsome Neutrophils/100 WBC (Bld) 76.9 % Critically high 43.0-75.0 [facility] Comment on above: Performed By: #### U BLANCA, CMP, MG #### [facility] [address] [place] [address] Dr. Hattie Newsome Platelet mean volume (Bld) [Entitic vol] 9.0 fL Critically low 9.5-13.5 [facility] Comment on above: Performed By: #### U BLANCA, CMP, MG #### [facility] [address] [place] [address] Dr. Hattie Newsome PLT 160 103/ul Normal 150-450 [facility] Comment on above: Performed By: #### U BLANCA, CMP, MG #### [facility] [address] [place] [address] Dr. Hattie Newsome RBC 4.40 106/ul Critically low 4.70-6.[address] [facility] Comment on above: Performed By: #### U BLANCA, CMP, MG #### [facility] [address] [place] [address] Dr. Hattie Newsome WBC 6.5 103/ul Normal 4.0-11.0 [facility] Comment on above: Performed By: #### U BLANCA, CMP, MG #### [facility] [address] [address] [address] Hattie Newsome MAGNESIUMon 07-07-2022 Magnesium [Mass/Vol] 1.8 mg/dL Normal 1.8-2.4 [facility] Comment on above: Performed By: #### U BLANCA, CMP, MG #### [facility] [address] [address] [address] Hattie Newsome PROF 14(COMP METB)on 022 Albumin [Mass/Vol] 3.9 g/dL Normal 3.4-5.0 [facility] Comment on above: Performed By: #### U BLANCA, CMP, MG #### [facility] [address] [place] [address] Dr. Hattie Newsome Albumin/Globulin [Mass ratio] 1.0 {ratio} Normal [facility] Comment on above: Performed By: #### U BLANCA, CMP, MG #### [facility] [address] [address] [address] Hattie Newsome ALP [Catalytic activity/Vol] 136 U/L Critically high 46-116 [facility] Comment on above: Performed By: #### U BLANCA, CMP, MG #### [facility] [address] [address] [address] Hattie Newsome ALT [Catalytic activity/Vol] 122 U/L Critically high 16-63 [facility] Comment on above: Performed By: #### U BLANCA, CMP, MG #### [facility] [address] [address] [address] Hattie Newsome Anion gap [Moles/Vol] 12.4 mmol/L Normal [facility] Comment on above: Performed By: #### U BLANCA, CMP, MG #### [facility] [address] [address] [address] Hattie Newsome AST [Catalytic activity/Vol] 72 U/L Critically high 15-37 [facility] Comment on above: Performed By: #### U BLANCA, CMP, MG #### [facility] [address] [place] [address] Dr. Hattie Newsome Bilirubin [Mass/Vol] 0.5 mg/dL Normal 0.2-1.0 [facility] Comment on above: Performed By: #### U BLANCA, CMP, MG #### [facility] [address] [place] [address] Dr. Hattie Newsome Calcium [Mass/Vol] 9.1 mg/dL Normal 8.5-10.1 [facility] Comment on above: Performed By: #### U BLANCA, CMP, MG #### [facility] [address] [place] [address] Dr. Hattie Newsome Chloride [Moles/Vol] 106 mmol/L Normal 98-107 [facility] Comment on above: Performed By: #### U BLANCA, CMP, MG #### [facility] [address] [place] [address] Dr. Hattie Newsome CO2 [Moles/Vol] 25.9 mmol/L Normal 21.0-32.0 [facility] Comment on above: Performed By: #### U BLANCA, CMP, MG #### [facility] [address] [place] [address] Dr. Hattie Newsome Creatinine [Mass/Vol] 1.54 mg/dL Critically high 0.70-1.30 [facility] Comment on above: Performed By: #### U BLANCA, CMP, MG #### [facility] [address] [place] [address] Dr. Hattie Newsome EGFR-AF NIUEAN 55 mL/min/1.73m2 Critically low >=60 [facility] Comment on above: Performed By: #### U BLANCA, CMP, MG #### [facility] [address] [place] [address] Dr. Hattie Newsome EGFR-NON AF NIUEAN 45 mL/min/1.73m2 Critically low >=60 [facility] Comment on above: Performed By: #### U BLANCA, CMP, MG #### [facility] [address] [place] [address] Dr. Hattie Newsome Globulin (S) [Mass/Vol] 4.0 g/dL Normal [facility] Comment on above: Performed By: #### U BLANCA, CMP, MG #### [facility] [address] [place] [address] Dr. Hattie Newsome Glucose [Mass/Vol] 104 mg/dL Normal 74-106 [facility] Comment on above: Performed By: #### U BLANCA, CMP, MG #### [facility] [address] [place] [address] Dr. Hattie Newsome Potassium [Moles/Vol] 4.3 mmol/L Normal 3.5-5.1 [facility] Comment on above: Performed By: #### U BLANCA, CMP, MG #### [facility] [address] [place] [address] Dr. Hattie Newsome Protein [Mass/Vol] 7.9 g/dL Normal 6.4-8.2 [facility] Comment on above: Performed By: #### U BLANCA, CMP, MG #### [facility] [address] [place] [address] Dr. Hattie Newsome Sodium [Moles/Vol] 140 mmol/L Normal 136-145 [facility] Comment on above: Performed By: #### U BLANCA, CMP, MG #### [facility] [address] [place] [address] Dr. Hattie Newsome Urea nitrogen [Mass/Vol] 14.0 mg/dL Normal 7.0-18.0 [facility] Comment on above: Performed By: #### U BLANCA, CMP, MG #### [facility] [address] [place] [address] Dr. Hattie Newsome Urea nitrogen/Creatinin e [Mass ratio] 9.1 mg/mg Normal [facility] Comment on above: Performed By: #### U BLANCA, CMP, MG #### [facility] [address] [place] [address] Dr. Hattie Newsome UA RANDOMon 07-07-2022 Bilirubin Ql (U) Negative Normal NEGATIVE [facility] Comment on above: Performed By: #### U A #### [facility] [address] [place] [address] Dr. Hattie Newsome Clarity (U) CLEAR Normal CLEAR [facility] Comment on above: Performed By: #### U A #### [facility] [address] [place] [address] Dr. Hattie Newsome Color (U) YELLOW Normal YELLOW [facility] Comment on above: Performed By: #### U A #### [facility] [address] [place] [address] Dr. Hattie Newsome Glucose Ql (U) Negative Normal NEGATIVE [facility] Comment on above: Performed By: #### U A #### [facility] [address] [place] [address] Dr. Hattie Newsome Hemoglobin Ql (U) Negative Normal NEGATIVE [facility] Comment on above: Performed By: #### U A #### [facility] [address] [place] [address] Dr. Hattie Newsome Ketones Ql (U) Negative Normal NEGATIVE [facility] Comment on above: Performed By: #### U A #### [facility] [address] [place] [address] Dr. Hattie Newsome LEUKOCYTES Negative Normal NEGATIVE [facility] Comment on above: Performed By: #### U A #### [facility] [address] [place] [address] Dr. Hattie Newsome Nitrite Ql (U) Negative Normal NEGATIVE [facility] Comment on above: Performed By: #### U A #### [facility] [address] [place] [address] Dr. Hattie Newsome pH (U) 5.5 [pH] Normal 5-9 [facility] Comment on above: Performed By: #### U A #### [facility] [address] [place] [address] Dr. Hattie Newsome SPEC GRAVITY >=1.030 Abnormal 1.005-<=1.025 [facility] Comment on above: Performed By: #### U A #### [facility] [address] [place] [address] Dr. Hattie Newsome UA PROTEIN Negative Normal NEGATIVE/ TRACE [facility] Comment on above: Performed By: #### U A #### [facility] [address] [address] [address] Hattie Newsome Urobilinogen Qn (U) 1.0 {Xavier'U}/dL Normal 0.2 - 1.0 [facility] Comment on above: Performed By: #### U A #### [facility] [address] [place] [address] Dr. Hattie Newsome URIC ACID SERUMon 07-07-2022 Urate [Mass/Vol] 6.8 mg/dL Normal 3.5-7.2 The [facility] Comment on above: Performed By: #### U BLANCA, CMP, MG #### [facility] [address] [place] [address] Dr. Hattie Newsome URINE T PROTEIN CREAT RATIOo n 07-07-2022 Protein (U) [Mass/Vol] 27.5 mg/dL Critically high <=12.0 [facility] Comment on above: Performed By: #### U RTPCR #### [facility] [address] [place] [address] Dr. Hattie Newsome UR PROT CREAT RAT 0.15 Normal The [facility] Comment on above: Performed By: #### U RTPCR #### [facility] [address] [place] [address] Dr. Hattie Newsome URINE CREAT 187.29 mg/dL Normal 20.00-300.[address] [facility] Comment on above: Performed By: #### U RTPCR #### [facility] [address] [place] [address] Dr. Hattie Newsome VITAMIN D 25 OHon 07-07-2022 VIT D 25-OH 81.5 ng/mL Normal [facility] Comment on above: Performed By: #### V ITAD #### [facility] [address] [place] [address] Dr. Hattie Newsome VIT D RANGES SEE BELOW Normal [facility] Comment on above: Result Comment: <20 ng/mL Vit D deficient 20 - <30 ng/mL Vit D insufficient 30 - 100 ng/mL Vit D sufficient >100 ng/mL Potential Toxicity Performed By: #### V ITAD #### [facility] [address] [place] [address] Dr. Hattie Jacobo 05-01-2022 CNPN Telephone ([facility]) SAMIR CASTILLO ([id number]) 1955 M Date Time Provider Department 05/01/22 MALINDA BARRAGAN [facility] During your visit today, we recorded the following information about you: Allergies As of Date: 05/01/2022 (No Known Allergies) Date Reviewed: 04/12/2022 Reviewed by: Ebony Kaufman DO - Fully Assessed Reason for Visit: Sign Language Interpreter - Other [1294] Cmt: In response to order placed in [...] tablet by mouth once daily. - omega 7-phu-vvh-fish oil (FISH OIL) 100-160-1,000 mg cap Take by mouth. - methylPREDNISolone (MEDROL, TEAGAN,) 4 mg Dose-Pack Take as instructed Problem List As Of Date 05/01/2022 Noted Resolved Dyspnea and respiratory abnormalities [R06.00, *02/09/2022 Recurrent major depression in partial remission*04/12/2022 MCI (mild cognitive impairment) [G31.84] 04/12/2022 Encounter Status:Closed by MALINDA BARRAGAN on 05/01/22 [facility] CNOVon 04-10-2022 CNOV Office Visit (NEADFV ) SAMIR CASTILLO ([id number]) 1955 M Date Time Provider Department 04/10/22 10:00 AM EBONY KAUFMAN NEADFV During your visit today, we recorded the following information about you: Pulse Blood pressure Weight Height 57/minute 146/69 89.7 kg 1.651 m Ebony Kaufman DO 04/12/2022 12:26 AM Signed [facility] New Patient Evaluation Consulting Provider: Jessie Lay [address] [facility] [address] Individuals who were included in, or assisted with the encounter were: Samir Castillo Ebony Kaufman DO Chief Complaint/Issues: Samir Castillo is a 66 year old male seen in the [facility] for: Memory HPI: [...] notices problems with both short term and fci memory Language: yes, word finding problems. Knows [...] TAKE 1 TABLET (more content not included)... 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 Brain MRI (02/08/2022) noted severe generalized volume [...] interest in transferring his psychiatric care to [facility]. The patient reported being sober since [...] stroke, and seizure. CURRENT MEDICATIONS, PER RECORDS (SANITATION ENGINEER-relevant medications in bold): Medication albuterol HFA (PROVENTIL [...] Multivitamins-Minerals -Lutein (MULTIVITAMIN 50 PLUS) tab omega 1-csi-pvg-fish oil (FISH OIL) 100-160-1,000 mg cap methylPREDNISolone (MEDROL, TEAGAN,) 4 mg Dose-Pack FAMILY HISTORY: patient reported (more content not included)... Normal [facility] ECHOCARDIO M/2D COMPLETEon 0 02-21-2022 ECHOCARDIO M/2D COMPLETE Patient: KEL CASTILLO Exam Date: 02/21/2022 : 1955 Gender:M Ordering : DR SARAH TOLLIVER M.D. Admission #: [id number] Family : Order #: [id number] CLICK HERE TO VIEW EXAM ECHOCARDIOGRAM REPORT [...] Yepez M.D. on 02/21/2022 at 16:31 Normal [facility] CNOVon 02-09-2022 CNOV Office Visit (PMNA11 ) CASTILLOSAMIR FISCHER ([id number]) 1955 M Date Time Provider Department 02/09/22 11:15 AM PRINCE ABY PMNA11 During your visit today, we recorded the following information about you: Temperature Pulse Respiration Blood pressure 97.5 degrees 65/minute 18/minute 135/64 Weight Height 89.9 kg 1.651 m Marisol Davis MD 02/15/2022 1:05 PM Signed Mr. Castillo is a 66 year old male who presents to the [facility] Respiratory [facility]. Consultation requested for an opinion regarding SOB. 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 omega 9-fgw-roy-fish oil (FISH OIL) 100-160-1,000 mg cap Take by mouth. methylPREDNISolone (MEDROL, TEAGAN,) 4 mg Dose-Pack Take as instructed PHYSICAL EXAM: Physical Exam On room air, able to complete sentences, no LE extremity edema No cervical or axillary LAD Chest: Air entry reduced in the lung bases, no wheeze (more content not included)... Normal [facility] MRI 3D POST PROCESSINGon MRI 3D POST PROCESSING * * *Final Report* * * DATE OF EXAM: Feb 08 2022 4:45PM QBM 0280 - MRI 3D POST PROCESSING / PROCEDURE REASON: Cognitive impairment, mild, so stated * * * * Physician Interpretation * * * * EXAMINATION: MRI BRAIN WO IVCON, MRI 3D POST PROCESSING CLINICAL HISTORY: TECHNIQUE: Axial JESSICA FLAIR, JESSICA T2, diffusion and susceptibility weighted imaging without contrast, using the ADNI dementia protocol and 3-D post-processing using the [employer] software at an independent workstation with concurrent [...] = Focal Lesions 2 = Beginning of [place] 3 = Diffuse Involvement of Entire Region Basal Ganglia Lesions: 0 = No Lesions 1 = 1 Focal Lesion (>5mm) 2 = >1 Focal Lesion (>5mm) 3 = Confluent Lesions Tomy Nance, et al. The clinical use of structural [...] results from the analysis charts for details. Quality Assurance Coordinator: PSCB Transcribe Date/Time: Feb 08 2022 4:54P Dictated by : TINO AUGUSTE MD This examination was interpreted and the report reviewed and electronically signed by: TINO AUGUSTE MD on Feb 08 2022 5:41PM EST [id number] Normal [facility] MRI BRAIN WO IVCONon 022 MRI BRAIN [...] dementia protocol and 3-D post-processing using the [employer] software at an independent workstation with concurrent [...] = Focal Lesions 2 = Beginning of [place] 3 = Diffuse Involvement of Entire Region Basal Ganglia Lesions: 0 = No Lesions 1 = 1 Focal Lesion (>5mm) 2 = >1 Focal Lesion (>5mm) 3 = Confluent Lesions Tomy Nance, et al. The clinical use of structural [...] results from the analysis charts for details. Quality Assurance Coordinator: TERRENCE Transcribe Date/Time: Feb 08 2022 4:54P Dictated by : TINO AUGUSTE MD This examination was interpreted and the report reviewed and electronically signed by: TINO AUGUSTE MD on Feb 08 2022 5:41PM EST [id number] Normal [facility] No Panel Informationon 02-08 [facility] CNOVon 12-22-2021 CNOV Office Visit (NEADFV ) SAMIR CASTILLO ([id number]) 1955 M Date Time Provider Department 12/22/21 9:00 AM JESSIE LAY During your visit today, we recorded the following information about you: Pulse Blood pressure Weight Height 59/minute 153/70 87.7 kg 1.651 m Jessie Lay MD 12/22/2021 10:51 AM Signed [facility] New Patient Evaluation Consulting Provider: SELF Individuals who were included in, or assisted with the encounter were: ? Samir Castillo ? Jessie Lay MD Chief Complaint/Issues: Samir Castillo is a 66 year old male seen in the [facility] for: 1. Memory [...] notices problems with both short term and fci memory Language: yes, word finding problems. Knows [...] TABLET BY MOUTH (more content not included)... Normal [facility] 12-21-2021 [facility] Telephone (NIQ) SAMIR CASTILLO ([id number]) 1955 M Date Time Provider Department 12/21/21 UNKNOWN NIQ During your visit today, we recorded the following information about you: Luna Sandoval 12/21/2021 11:49 AM Signed [facility] NI referral from Dr. Milo Hurtado, [place], [place] DX: increasing amnesia not explained as part of depression and anxiety RFV: Evaluate and treat Scheduling: Patient accepted consult with Dr. Jessie Lay on 12/22/2021 External records will be uploaded to chart in Scanned Docs. Allergies As of Date: 12/21/2021 (Not on File) Date Reviewed: Never Reviewed Reason for Visit: Received Outside Medical Records [9495] Cmt: External referral to Brain Health Problem List As Of Date: 12/21/2021 (None) Encounter Status:Closed by LUNA SANDOVAL on 12/21/[address] [facility] BASIC METABOLIC PANELon 02-2 Calcium [Mass/Vol] 9.2 mg/dL Normal 8.6-10.3 The [facility] Comment on above: Order Comment: No: D o not add to previous draw Performed By: #### 0 0071, 95081 #### [facility] [address] [place] [address], [place] Chloride [Moles/Vol] 108 mmol/L High 98-107 The [facility] Comment on above: Order Comment: No: D o not add to previous draw Performed By: #### 0 0071, 94122 #### [facility] [address] [place] [address], [place] CO2 [Moles/Vol] 26 mmol/L Normal 21-31 The [facility] Comment on above: Order Comment: No: D o not add to previous draw Performed By: #### 0 0071, 49078 #### [facility] [address] [place] [address], [facility] Creatinine [Mass/Vol] 1.64 mg/dL High 0.70-1.30 [facility] Comment on above: Order Comment: No: D o not add to previous draw Performed By: #### 0 0071, 65140 #### [facility] [address] [place] [address], [place] GFR/1.73 sq M predicted among blacks MDRD (S/P/Bld) [Vol rate/Area] 51 ml/min/1.73sq m Abnormal >60 [facility] Comment on above: Order Comment: No: D o not add to previous draw Performed By: #### 0 0071, 25511 #### [facility] [address] [place] [address], [place] GFR/1.73 sq M predicted among non-blacks MDRD (S/P/Bld) [Vol rate/Area] 42 ml/min/1.73sq m Abnormal >60 [facility] Comment on above: Order Comment: No: D o not add to previous draw Performed By: #### 0 0071, 87646 #### [facility] [address] [place] [address], [facility] Glucose [Mass/Vol] 100 mg/dL Normal 70-100 The [facility] Comment on above: Order Comment: No: D o not add to previous draw Performed By: #### 0 0071, 68319 #### [facility] [address] [place] [address], [facility] Potassium [Moles/Vol] 4.5 mmol/L Normal 3.5-5.1 The [facility] Comment on above: Order Comment: No: D o not add to previous draw Performed By: #### 0 0071, 35636 #### [facility] [address] [place] [address], [facility] Sodium [Moles/Vol] 139 mmol/L Normal 136-145 [facility] Comment on above: Order Comment: No: D o not add to previous draw Performed By: #### 0 0071, 50906 #### [facility] [address] [facility] [place] [place] [address], [facility] Urea nitrogen [Mass/Vol] 15 mg/dL Normal 7-25 The [facility] Comment on above: Order Comment: No: D o not add to previous draw Performed By: #### 0 0071, 56237 #### [facility] [address] [id number], [facility] CBC W/DIFFon 10-08-2019 ABS BASOPHILS 0.1 10*3/uL Normal 0.0-0.2 The [facility] Comment on above: Order Comment: No: D o not add to previous draw Performed By: #### 0 0071, 00596 #### [facility] [address] [facility]. [address] [id number], [facility] ABS IMM GRANS 0.1 10*3/uL Normal 0.0-0.2 The [facility] Comment on above: Order Comment: No: D o not add to previous draw Performed By: #### 0 0071, 04754 #### [facility] [address] [place] [address], [facility] ABS NEUTROPHILS 5.1 10*3/uL Normal 1.6-7.6 The [facility] Comment on above: Order Comment: No: D o not add to previous draw Performed By: #### 0 0071, 42714 #### [facility] [address] [place] [address], [facility] Basophils/100 WBC (Bld) 0.8 % Normal 0.0-1.0 The [facility] Comment on above: Order Comment: No: D o not add to previous draw Performed By: #### 0 0071, 96524 #### [facility] [address] [place] [address], [facility] Eosinophils (Bld) [#/Vol] 0.3 10*3/uL Normal 0.0-0.5 The [facility] Comment on above: Order Comment: No: D o not add to previous draw Performed By: #### 0 0071, 75681 #### [facility] [address] [place] [address], [facility] Eosinophils/100 WBC (Bld) 3.9 % Normal 0.0-6.0 The [facility] Comment on above: Order Comment: No: D o not add to previous draw Performed By: #### 0 0071, 62588 #### [facility] [address] [id number], [facility] Erythrocyte distribution width (RBC) [Ratio] 14.3 % Normal 11.5-15.0 The [facility] Comment on above: Order Comment: No: D o not add to previous draw Performed By: #### 0 0071, 95240 #### [facility] [address] [place] [id number], [facility] Hematocrit (Bld) [Volume fraction] 39.0 % Normal 39.0-50.0 The [facility] Comment on above: Order Comment: No: D o not add to previous draw Performed By: #### 0 0071, 29220 #### [facility] [address] [place] [address], [facility] Hemoglobin (Bld) [Mass/Vol] 12.3 g/dL Low 13.0-17.0 The [facility] Comment on above: Order Comment: No: D o not add to previous draw Performed By: #### 0 0071, 44493 #### [facility] [address] [facility] [place] [address], [facility] IMMATURE GRANS 0.8 % Normal 0.0-1.0 The [facility] Comment on above: Order Comment: No: D o not add to previous draw Performed By: #### 0 0071, 99967 #### [facility] [address] [place] [address], [facility] Lymphocytes (Bld) [#/Vol] 1.2 10*3/uL Normal 1.2-4.0 The [facility] Comment on above: Order Comment: No: D o not add to previous draw Performed By: #### 0 0071, 74540 #### [facility] [address] [facility] [place] [address], [facility] Lymphocytes/100 WBC (Bld) 16.1 % Low 20.0-45.0 The [facility] Comment on above: Order Comment: No: D o not add to previous draw Performed By: #### 0 0071, 87007 #### [facility] [address] [facility] [place] [place] [address], [facility] MCH (RBC) [Entitic mass] 29.9 pg Normal 27.0-33.0 The [facility] Comment on above: Order Comment: No: D o not add to previous draw Performed By: #### 0 0071, 91888 #### [facility] [address] [place] [address], [facility] MCHC (RBC) [Mass/Vol] 31.5 g/dL Low 32.0-35.0 The [facility] Comment on above: Order Comment: No: D o not add to previous draw Performed By: #### 0 0071, 83102 #### [facility] [address] [facility] [place] [address], [facility] MCV (RBC) [Entitic vol] 94.9 fL Normal 82.0-98.0 The [facility] Comment on above: Order Comment: No: D o not add to previous draw Performed By: #### 0 0071, 68286 #### [facility] [address] [facility] [place] [place] [address], [facility] Monocytes (Bld) [#/Vol] 0.5 10*3/uL Normal 0.1-1.0 The [facility] Comment on above: Order Comment: No: D o not add to previous draw Performed By: #### 0 0071, 98458 #### [facility] [address] [facility] [address], [facility] MONOS 6.3 % Normal 5.0-12.0 The [facility] Comment on above: Order Comment: No: D o not add to previous draw Performed By: #### 0 0071, 36728 #### [facility] [address] [facility] [place] [place] [address], [facility] Neutrophils/100 WBC (Bld) 72.1 % High 40.0-72.0 The [facility] Comment on above: Order Comment: No: D o not add to previous draw Performed By: #### 0 0071, 21475 #### [facility] [address] [facility] [place] [address], [facility] Nucleated RBC/100 WBC (Bld) [Ratio] 0 % Normal 0-0 The [facility] Comment on above: Order Comment: No: D o not add to previous draw Performed By: #### 0 0071, 39616 #### [facility] [address] [place] [address], [facility] PLAT CNT 168 10*3/uL Normal 150-400 [facility] Comment on above: Order Comment: No: D o not add to previous draw Performed By: #### 0 0071, 82820 #### [facility] [address] [place] [address], [facility] RBC (Bld) [#/Vol] 4.11 10*6/uL Low 4.20-5.70 The [facility] Comment on above: Order Comment: No: D o not add to previous draw Performed By: #### 0 0071, 63463 #### [facility] [address] [place] [address], [facility] WBC (Bld) [#/Vol] 7.13 10*3/uL Normal 4.00-10.60 The [facility] Comment on above: Order Comment: No: D o not add to previous draw Performed By: #### 0 0071, 96988 #### [facility] [address] US ABDOMEN LIMITEDon 020 US ABDOMEN LIMITED [facility] Department of Radiology [address] [place] [id number] ======== Patient Name: KEL CASTILLO : 1955 Sex: M Age: Race: White Pt. Location: [id number] Patient Status: I Ordered Date: 10/08/2019 9:30:00 AM Completed Date: 10/08/2019 10:00 AM Requesting Provider: OADLYS CUETO Attending Provider: DUKE RANGEL Report Copy [...] collection. Electronically signed: Brandy Wilson. Transcribed by: [email or web address], User Resident: BRANDY WILSON Electronically Signed by: BRANDY WILSON @ 10/08/2019 10:13 AM I personally read this/these film(s) with this resident Normal The [facility] Comment on above: Order Comment: No: D o not add to previous draw BASIC METABOLIC PANELon 09-13 Calcium [Mass/Vol] 8.7 mg/dL Normal 8.6-10.3 [facility] Comment on above: Order Comment: No: D o not add to previous draw Performed By: #### 0 0071, 17465 #### [facility] [address] [place] [address], [place] Chloride [Moles/Vol] 111 mmol/L High 98-107 The [facility] Comment on above: Order Comment: No: D o not add to previous draw Performed By: #### 0 0071, 14481 #### [facility] [address] [place] [address], [place] CO2 [Moles/Vol] 28 mmol/L Normal 21-31 The [facility] Comment on above: Order Comment: No: D o not add to previous draw Performed By: #### 0 0071, 56512 #### [facility] [address] [place] [address], [facility] Creatinine [Mass/Vol] 1.59 mg/dL High 0.70-1.30 [facility] Comment on above: Order Comment: No: D o not add to previous draw Performed By: #### 0 0071, 03323 #### [facility] [address] [place] [address], [place] GFR/1.73 sq M predicted among blacks MDRD (S/P/Bld) [Vol rate/Area] 53 ml/min/1.73sq m Abnormal >60 [facility] Comment on above: Order Comment: No: D o not add to previous draw Performed By: #### 0 0071, 31464 #### [facility] [address] [place] [address], [place] GFR/1.73 sq M predicted among non-blacks MDRD (S/P/Bld) [Vol rate/Area] 44 ml/min/1.73sq m Abnormal >60 [facility] Comment on above: Order Comment: No: D o not add to previous draw Performed By: #### 0 0071, 12227 #### [facility] [address] [place] [address], [place] Glucose [Mass/Vol] 99 mg/dL Normal 70-100 [facility] Comment on above: Order Comment: No: D o not add to previous draw Performed By: #### 0 0071, 71516 #### [facility] [address] [place] [address], [place] Potassium [Moles/Vol] 4.2 mmol/L Normal 3.5-5.1 [facility] Comment on above: Order Comment: No: D o not add to previous draw Performed By: #### 0 0071, 34905 #### [facility] [address] [place] [address], [facility] Sodium [Moles/Vol] 142 mmol/L Normal 136-145 [facility] Comment on above: Order Comment: No: D o not add to previous draw Performed By: #### 0 0071, 20325 #### [facility] [address] [place] [address], [facility] Urea nitrogen [Mass/Vol] 16 mg/dL Normal 7-25 The [facility] Comment on above: Order Comment: No: D o not add to previous draw Performed By: #### 0 0071, 08616 #### [facility] [address] [place], [place] [id number] [place] [address] Cardiovascular Lab Reporton 10-07-2019 Cardiovascular Lab Report [facility] Patient Name: Jose [facility] Kel MR #: [id number] Department of Physician: Shaji Juarez M.D. Division of Service Date: 10/07/2019 Cardiology Birthdate: 1955 Adult Cardiovascular Room #: [id number] [facility] [address] [id number] Cardiovascular Laboratory Report FINAL IMPRESSIONS: 1. Severe 3-vessel quileute coronary artery disease. 2. A 2/3 bypass [...] on the anatomic and fluoroscopic landmarks. A 6-Trinidadian 11 cm sheath was inserted. Limited femoral [...] P Sarah Tolliver M.D. Date Dict: 10/07/2019/09:10 A/Sarah Tolliver M.D. Date Trans: 10/07/2019 02:55 P/mmo [id number] cc: Priyank Hendrickson M.D. [address] [place] [address] Nayana Bledsoe D. [address] [place] [id number] Normal [facility] MAGNESIUM BLOODon 10-07-2019 Magnesium [Mass/Vol] 2.1 mg/dL Normal 1.9-2.7 [facility] Comment on above: Order Comment: No: D o not add to previous draw Performed By: #### 0 9631, [id number] #### [facility] [address] [place] [address], [facility] BASIC METABOLIC PANELon 09-13 Calcium [Mass/Vol] 8.7 mg/dL Normal 8.6-10.3 [facility] Comment on above: Order Comment: No: D o not add to previous draw Performed By: #### 0 6501, [id number] #### [facility] [address] [place] [address], [place] Chloride [Moles/Vol] 110 mmol/L High 98-107 [facility] Comment on above: Order Comment: No: D o not add to previous draw Performed By: #### 0 0071, [id number] #### [facility] [address] [place] [address], [place] CO2 [Moles/Vol] 26 mmol/L Normal 21-31 [facility] Comment on above: Order Comment: No: D o not add to previous draw Performed By: #### 0 0071, [id number] #### [facility] [address] [place] [address], [place] Creatinine [Mass/Vol] 1.92 mg/dL High 0.70-1.30 [facility] Comment on above: Order Comment: No: D o not add to previous draw Performed By: #### 0 0071, [id number] #### [facility] [address] [place] [address], [place] GFR/1.73 sq M predicted among blacks MDRD (S/P/Bld) [Vol rate/Area] 43 ml/min/1.73sq m Abnormal >60 [facility] Comment on above: Order Comment: No: D o not add to previous draw Performed By: #### 0 0071, 80320 #### [facility] [address] [place] [address], [place] GFR/1.73 sq M predicted among non-blacks MDRD (S/P/Bld) [Vol rate/Area] 35 ml/min/1.73sq m Abnormal >60 [facility] Comment on above: Order Comment: No: D o not add to previous draw Performed By: #### 0 0071, 05951 #### [facility] [address] [place] [address], [place] Glucose [Mass/Vol] 96 mg/dL Normal 70-100 [facility] Comment on above: Order Comment: No: D o not add to previous draw Performed By: #### 0 0071, 57537 #### [facility] [address] [place] [address], [place] Potassium [Moles/Vol] 4.4 mmol/L Normal 3.5-5.1 [facility] Comment on above: Order Comment: No: D o not add to previous draw Performed By: #### 0 0071, 19258 #### [facility] [address] [place] [address], [place] Sodium [Moles/Vol] 140 mmol/L Normal 136-145 [facility] Comment on above: Order Comment: No: D o not add to previous draw Performed By: #### 0 0071, [id number] #### [facility] [address] [place] [address], [place] Urea nitrogen [Mass/Vol] 25 mg/dL Normal 7-25 [facility] Comment on above: Order Comment: No: D o not add to previous draw Performed By: #### 0 0071, 17393 #### [facility] [address] [place] [address], [place] Calcium [Mass/Vol] 8.8 mg/dL Normal 8.6-10.3 [facility] Comment on above: Order Comment: No: D o not add to previous draw Performed By: #### 0 0071 #### [facility] [address] [place] [address], [place] Chloride [Moles/Vol] 111 mmol/L High 98-107 [facility] Comment on above: Order Comment: No: D o not add to previous draw Performed By: #### 0 0071 #### [facility] [address] [place] [address], [place] CO2 [Moles/Vol] 25 mmol/L Normal 21-31 [facility] Comment on above: Order Comment: No: D o not add to previous draw Performed By: #### 0 0071 #### [facility] [address] [place] [address], [place] Creatinine [Mass/Vol] 1.94 mg/dL High 0.70-1.30 [facility] Comment on above: Order Comment: No: D o not add to previous draw Performed By: #### 0 0071 #### [facility] [address] [place] [address], [place] GFR/1.73 sq M predicted among blacks MDRD (S/P/Bld) [Vol rate/Area] 42 ml/min/1.73sq m Abnormal >60 [facility] Comment on above: Order Comment: No: D o not add to previous draw Performed By: #### 0 0071 #### [facility] [address] [place] [address], [place] GFR/1.73 sq M predicted among non-blacks MDRD (S/P/Bld) [Vol rate/Area] 35 ml/min/1.73sq m Abnormal >60 [facility] Comment on above: Order Comment: No: D o not add to previous draw Performed By: #### 0 0071 #### [facility] [address] [place] [address], [place] Glucose [Mass/Vol] 102 mg/dL High 70-100 [facility] Comment on above: Order Comment: No: D o not add to previous draw Performed By: #### 0 0071 #### [facility] [address] [place] [address], [place] Potassium [Moles/Vol] 4.5 mmol/L Normal 3.5-5.1 [facility] Comment on above: Order Comment: No: D o not add to previous draw Performed By: #### 0 0071 #### [facility] [address] [place] [address], [place] Sodium [Moles/Vol] 140 mmol/L Normal 136-145 [facility] Comment on above: Order Comment: No: D o not add to previous draw Performed By: #### 0 0071 #### [facility] [address] [facility] [place] [address], [facility] Urea nitrogen [Mass/Vol] 27 mg/dL High 7-25 [facility] Comment on above: Order Comment: No: D o not add to previous draw Performed By: #### 0 0071 #### [facility] [address] [facility] [place] [place] [address], [facility] CBC W/DIFFon 10-06-2019 ABS BASOPHILS 0.1 10*3/uL Normal 0.0-0.2 [facility] Comment on above: Order Comment: No: D o not add to previous draw Performed By: #### 5 0103 #### [facility] [address] ABS IMM GRANS 0.1 10*3/uL Normal 0.0-0.2 [facility] Comment on above: Order Comment: No: D o not add to previous draw Performed By: #### 5 3 #### [facility] [address] [place] [address], [facility] ABS NEUTROPHILS 4.2 10*3/uL Normal 1.6-7.6 The [facility] Comment on above: Order Comment: No: D o not add to previous draw Performed By: #### 5 0103 #### [facility] [address] [facility] [place] [address], [facility] Basophils/100 WBC (Bld) 0.9 % Normal 0.0-1.0 [facility] Comment on above: Order Comment: No: D o not add to previous draw Performed By: #### 5 0103 #### [facility] [address] [place] [address], [facility] Eosinophils (Bld) [#/Vol] 0.3 10*3/uL Normal 0.0-0.5 [facility] Comment on above: Order Comment: No: D o not add to previous draw Performed By: #### 5 0103 #### [facility] [address] [place] [address], [facility] Eosinophils/100 WBC (Bld) 4.8 % Normal 0.0-6.0 [facility] Comment on above: Order Comment: No: D o not add to previous draw Performed By: #### 5 0103 #### [facility] [address] [place] [address], [facility] Erythrocyte distribution width (RBC) [Ratio] 14.3 % Normal 11.5-15.0 [facility] Comment on above: Order Comment: No: D o not add to previous draw Performed By: #### 5 0103 #### [facility] [address] [place] [address], [facility] Hematocrit (Bld) [Volume fraction] 37.3 % Low 39.0-50.0 [facility] Comment on above: Order Comment: No: D o not add to previous draw Performed By: #### 5 0103 #### [facility] [address] [facility] [place] [address], [facility] Hemoglobin (Bld) [Mass/Vol] 11.7 g/dL Low 13.0-17.0 [facility] Comment on above: Order Comment: No: D o not add to previous draw Performed By: #### 5 0103 #### [facility] [address] [facility] [place] [address], [facility] IMMATURE GRANS 1.3 % High 0.0-1.0 [facility] Comment on above: Order Comment: No: D o not add to previous draw Performed By: #### 5 0103 #### [facility] [address] [place] [address], [facility] Lymphocytes (Bld) [#/Vol] 1.5 10*3/uL Normal 1.2-4.0 [facility] Comment on above: Order Comment: No: D o not add to previous draw Performed By: #### 5 0103 #### [facility] [address] [place] [address], [facility] Lymphocytes/100 WBC (Bld) 21.8 % Normal 20.0-45.0 [facility] Comment on above: Order Comment: No: D o not add to previous draw Performed By: #### 5 0103 #### [facility] [address] [place] [address], [facility] MCH (RBC) [Entitic mass] 29.5 pg Normal 27.0-33.0 [facility] Comment on above: Order Comment: No: D o not add to previous draw Performed By: #### 5 0103 #### [facility] [address] MCHC (RBC) [Mass/Vol] 31.4 g/dL Low 32.0-35.0 [facility] Comment on above: Order Comment: No: D o not add to previous draw Performed By: #### 5 0103 #### [facility] [address] [facility] [place] [address], [facility] MCV (RBC) [Entitic vol] 94.0 fL Normal 82.0-98.0 [facility] Comment on above: Order Comment: No: D o not add to previous draw Performed By: #### 5 0103 #### [facility] [address] [facility] [place] [address], [facility] Monocytes (Bld) [#/Vol] 0.6 10*3/uL Normal 0.1-1.0 [facility] Comment on above: Order Comment: No: D o not add to previous draw Performed By: #### 5 0103 #### [facility] [address] [place] [address], [facility] MONOS 8.2 % Normal 5.0-12.0 [facility] Comment on above: Order Comment: No: D o not add to previous draw Performed By: #### 5 0103 #### [facility] [address] [place] [address], [facility] Neutrophils/100 WBC (Bld) 63.0 % Normal 40.0-72.0 [facility] Comment on above: Order Comment: No: D o not add to previous draw Performed By: #### 5 0103 #### [facility] [address] [place] [address], [facility] Nucleated RBC/100 WBC (Bld) [Ratio] 0 % Normal 0-0 [facility] Comment on above: Order Comment: No: D o not add to previous draw Performed By: #### 5 0103 #### [facility] [address] [place] [id number], [facility] PLAT CNT 162 10*3/uL Normal 150-400 [facility] Comment on above: Order Comment: No: D o not add to previous draw Performed By: #### 5 0103 #### [facility] [address] [place] [id number], [facility] RBC (Bld) [#/Vol] 3.97 10*6/uL Low 4.20-5.70 [facility] Comment on above: Order Comment: No: D o not add to previous draw Performed By: #### 5 0103 #### [facility] [address] [place] [id number], [facility] WBC (Bld) [#/Vol] 6.69 10*3/uL Normal 4.00-10.60 [facility] Comment on above: Order Comment: No: D o not add to previous draw Performed By: #### 5 0103 #### [facility] [address] [place] [id number], [facility] BASIC METABOLIC PANELon 02-2 Calcium [Mass/Vol] 9.7 mg/dL Normal 8.6-10.3 The [facility] Comment on above: Order Comment: No: D o not add to previous draw Performed By: #### 0 0071, 69785 #### [facility] [address] [place] [address], [place] Chloride [Moles/Vol] 105 mmol/L Normal 98-107 [facility] Comment on above: Order Comment: No: D o not add to previous draw Performed By: #### 0 0071, 15651 #### [facility] [address] [place] [address], [place] CO2 [Moles/Vol] 25 mmol/L Normal 21-31 [facility] Comment on above: Order Comment: No: D o not add to previous draw Performed By: #### 0 0071, 99077 #### [facility] [address] [place] [address], [place] Creatinine [Mass/Vol] 2.13 mg/dL High 0.70-1.30 [facility] Comment on above: Order Comment: No: D o not add to previous draw Performed By: #### 0 0071, 37160 #### [facility] [address] [place] [address], [place] GFR/1.73 sq M predicted among blacks MDRD (S/P/Bld) [Vol rate/Area] 38 ml/min/1.73sq m Abnormal >60 [facility] Comment on above: Order Comment: No: D o not add to previous draw Performed By: #### 0 0071, 76212 #### [facility] [address] [place] [address], [place] GFR/1.73 sq M predicted among non-blacks MDRD (S/P/Bld) [Vol rate/Area] 31 ml/min/1.73sq m Abnormal >60 [facility] Comment on above: Order Comment: No: D o not add to previous draw Performed By: #### 0 0071, 65055 #### [facility] [address] [place] [address], [facility] Glucose [Mass/Vol] 114 mg/dL High 70-100 [facility] Comment on above: Order Comment: No: D o not add to previous draw Performed By: #### 0 0071, 75926 #### [facility] [address] [place] [id number], [facility] Potassium [Moles/Vol] 4.7 mmol/L Normal 3.5-5.1 [facility] Comment on above: Order Comment: No: D o not add to previous draw Performed By: #### 0 0071, 88004 #### [facility] [address] [facility] [place] [address], [facility] Sodium [Moles/Vol] 140 mmol/L Normal 136-145 The [facility] Comment on above: Order Comment: No: D o not add to previous draw Performed By: #### 0 0071, 72613 #### [facility] [address] [facility] [place] [address], [facility] Urea nitrogen [Mass/Vol] 32 mg/dL High 7-25 [facility] Comment on above: Order Comment: No: D o not add to previous draw Performed By: #### 0 0071, 86873 #### [facility] [address] [facility] [place] [address], [facility] CBC W/DIFFon 10-05-2019 ABS BASOPHILS 0.1 10*3/uL Normal 0.0-0.2 [facility] Comment on above: Performed By: #### 5 0103 #### [facility] [address] [place] [address], [facility] ABS IMM GRANS 0.1 10*3/uL Normal 0.0-0.2 [facility] Comment on above: Performed By: #### 5 0103 #### [facility] [address] [place] [address], [facility] ABS NEUTROPHILS 6.2 10*3/uL Normal 1.6-7.6 The [facility] Comment on above: Performed By: #### 5 0103 #### [facility] [address] [place] [address], [facility] Basophils/100 WBC (Bld) 0.7 % Normal 0.0-1.0 [facility] Comment on above: Performed By: #### 5 0103 #### [facility] [address] [place] [address], [facility] Eosinophils (Bld) [#/Vol] 0.3 10*3/uL Normal 0.0-0.5 [facility] Comment on above: Performed By: #### 5 0103 #### [facility] [address] [place] [address], [facility] Eosinophils/100 WBC (Bld) 4.0 % Normal 0.0-6.0 [facility] Comment on above: Performed By: #### 5 0103 #### [facility] [address] [facility] [place] [address], [facility] Erythrocyte distribution width (RBC) [Ratio] 14.4 % Normal 11.5-15.0 [facility] Comment on above: Performed By: #### 5 0103 #### [facility] [address] [facility] [place] [address], [facility] Hematocrit (Bld) [Volume fraction] 39.3 % Normal 39.0-50.0 [facility] Comment on above: Performed By: #### 5 0103 #### [facility] [address] [place] [address], [facility] Hemoglobin (Bld) [Mass/Vol] 12.7 g/dL Low 13.0-17.0 [facility] Comment on above: Performed By: #### 5 0103 #### [facility] [address] [place] [address], [facility] IMMATURE GRANS 0.8 % Normal 0.0-1.0 [facility] Comment on above: Performed By: #### 5 0103 #### [facility] [address] [facility] [place] [address], [facility] Lymphocytes (Bld) [#/Vol] 1.4 10*3/uL Normal 1.2-4.0 [facility] Comment on above: Performed By: #### 5 0103 #### [facility] [address] [facility] [place] [place] [address], [facility] Lymphocytes/100 WBC (Bld) 16.6 % Low 20.0-45.0 [facility] Comment on above: Performed By: #### 5 0103 #### [facility] [address] [place] [address], [facility] MCH (RBC) [Entitic mass] 30.3 pg Normal 27.0-33.0 [facility] Comment on above: Performed By: #### 5 3 #### [facility] [address] MCHC (RBC) [Mass/Vol] 32.3 g/dL Normal 32.0-35.0 [facility] Comment on above: Performed By: #### 5 3 #### [facility] [address] [place] [address], [facility] MCV (RBC) [Entitic vol] 93.8 fL Normal 82.0-98.0 [facility] Comment on above: Performed By: #### 5 3 #### [facility] [address] [place] [address], [facility] Monocytes (Bld) [#/Vol] 0.4 10*3/uL Normal 0.1-1.0 [facility] Comment on above: Performed By: #### 5 3 #### [facility] [address] [facility] [place] [address], [facility] MONOS 4.9 % Low 5.0-12.0 [facility] Comment on above: Performed By: #### 5 0103 #### [facility] [address] [place] [id number], [facility] Neutrophils/100 WBC (Bld) 73.0 % High 40.0-72.0 [facility] Comment on above: Performed By: #### 5 0103 #### [facility] [address] [place] [address], [facility] Nucleated RBC/100 WBC (Bld) [Ratio] 0 % Normal 0-0 [facility] Comment on above: Performed By: #### 5 0103 #### [facility] [address] [place] [id number], [facility] PLAT CNT 205 10*3/uL Normal 150-400 [facility] Comment on above: Performed By: #### 5 0103 #### [facility] [address] [place] [address], [facility] RBC (Bld) [#/Vol] 4.19 10*6/uL Low 4.20-5.70 [facility] Comment on above: Performed By: #### 5 0103 #### [facility] [address] [facility] [place] [id number], [facility] WBC (Bld) [#/Vol] 8.53 10*3/uL Normal 4.00-10.60 [facility] Comment on above: Performed By: #### 5 0103 #### [facility] [address] [place] [address], [facility] CREATININE URINE RANDOMon Creatinine [Mass/Vol] 62.0 mg/dL Normal [facility] Comment on above: Order Comment: No: D o not add to previous draw Result Comment: Ther e are no established reference values for random urine specimens Performed By: #### 2 5706, 82532, 69830 #### [facility] [address] [place] [id number], [facility] LIVER BATTERYon 10-05-2019 Albumin [Mass/Vol] 4.6 g/dL Normal 3.5-5.7 [facility] Comment on above: Order Comment: Yes: Add to Previous draw if able Performed By: #### 0 0071, 49543 #### [facility] [address] [place] [address], [place] ALKALINE PHOSPH 56 IU/L Normal 34-104 The [facility] Comment on above: Order Comment: Yes: Add to Previous draw if able Performed By: #### 0 0071, 46060 #### [facility] [address] [place] [address], [place] ALT [Catalytic activity/Vol] 26 U/L Normal 7-52 [facility] Comment on above: Order Comment: Yes: Add to Previous draw if able Performed By: #### 0 0071, 27007 #### [facility] [address] [place] [address], [place] AST [Catalytic activity/Vol] 25 U/L Normal 13-39 [facility] Comment on above: Order Comment: Yes: Add to Previous draw if able Performed By: #### 0 0071, 99359 #### [facility] [address] [place] [address], [place] Bilirubin [Mass/Vol] 0.5 mg/dL Normal 0.3-1.0 [facility] Comment on above: Order Comment: Yes: Add to Previous draw if able Performed By: #### 0 0071, 86970 #### [facility] [address] [place] [address], [place] Bilirubin.direct [Mass/Vol] 0.1 mg/dL Normal 0.0-0.2 [facility] Comment on above: Order Comment: Yes: Add to Previous draw if able Performed By: #### 0 0071, 64129 #### [facility] [address] [place] [address], [place] Protein [Mass/Vol] 7.6 g/dL Normal 6.0-8.3 The [facility] Comment on above: Order Comment: Yes: Add to Previous draw if able Performed By: #### 0 0071, 25113 #### [facility] [facility] [address] [place] [address], [place] SODIUM URINE RANDOMon 2019 Sodium (U) [Moles/Vol] 111 mmol/L Normal The [facility] Comment on above: Order Comment: No: D o not add to previous draw Result Comment: Ther e are no established reference values for random urine specimens Performed By: #### 2 [id number], [id number], [id number] #### [facility] [address] [place] [address], [place] UA,MICROSCOPIC REQUIREDon Appearance (U) CLEAR Normal CLEAR The [facility] Comment on above: Order Comment: No: D o not add to previous draw Performed By: #### 9 0150 #### [facility] [address] [place] [address], [place] Bilirubin [Mass/Vol] Negative Normal NEGATIVE [facility] Comment on above: Order Comment: No: D o not add to previous draw Performed By: #### 9 0150 #### [facility] [address] [place] [address], [place] BLOOD Negative Normal NEGATIVE [facility] Comment on above: Order Comment: No: D o not add to previous draw Performed By: #### 9 0150 #### [facility] [address] [place] [address], [place] Color (U) YELLOW Normal YELLOW [facility] Comment on above: Order Comment: No: D o not add to previous draw Performed By: #### 9 0150 #### [facility] [address] [place] [address], [place] EPIS OCC Normal FEW,OCC,NONE SEEN [facility] Comment on above: Order Comment: No: D o not add to previous draw Performed By: #### 9 0150 #### [facility] [address] [place] [address], [facility] Glucose [Mass/Vol] Negative Normal NEGATIVE The [facility] Comment on above: Order Comment: No: D o not add to previous draw Performed By: #### 9 0150 #### [facility] [address] [place] [address], [place] HYALINE CASTS 1 /LPF Abnormal NONE SEEN The [facility] Comment on above: Order Comment: No: D o not add to previous draw Performed By: #### 9 0150 #### [facility] [address] [place] [address], [facility] KETONE Negative Normal NEGATIVE [facility] Comment on above: Order Comment: No: D o not add to previous draw Performed By: #### 9 0150 #### [facility] [address] [place] [address], [facility] LEUK BURAK Negative Normal NEGATIVE [facility] Comment on above: Order Comment: No: D o not add to previous draw Performed By: #### 9 0150 #### [facility] [address] [place] [address], [place] Nitrite Ql (U) Negative Normal NEGATIVE The [facility] Comment on above: Order Comment: No: D o not add to previous draw Performed By: #### 9 0150 #### [facility] [address] [place] [address], [place] pH (Bld) 6.0 Normal 5.0-8.0 [facility] Comment on above: Order Comment: No: D o not add to previous draw Performed By: #### 9 0150 #### [facility] [address] [place] [address], [place] Protein [Mass/Vol] Negative Normal NEGATIVE The [facility] Comment on above: Order Comment: No: D o not add to previous draw Performed By: #### 9 0150 #### [facility] [address] [facility] [place] [address], [facility] RBC (Bld) [#/Vol] 0-2 Abnormal NONE SEEN The [facility] Comment on above: Order Comment: No: D o not add to previous draw Performed By: #### 9 0150 #### [facility] [address] [facility] [place] [address], [facility] SPEC GRAV 1.012 Low 1.015-1.020 [facility] Comment on above: Order Comment: No: D o not add to previous draw Performed By: #### 9 0150 #### [facility] [address] [facility] [place] [address], [facility] WBC UA 0-2 Abnormal NONE SEEN [facility] Comment on above: Order Comment: No: D o not add to previous draw Performed By: #### 9 0150 #### [facility] [address] [place] [address], [facility] UREA NITROGEN URon 0 Urea nitrogen [Mass/Vol] 566 mg/dL Normal [facility] Comment on above: Order Comment: No: D o not add to previous draw Result Comment: Ther e are no established reference values for random urine specimens Performed By: #### 2 5706, 49930, [address] #### [id number] [place] [address] [place] RENALon 10-05-2019 US RENAL [facility] Department of Radiology [address] [place] [id number] ======== Patient Name: KEL CASTILLO : 1955 Sex: M Age: Race: White Pt. Location: [id number] Patient Status: I Ordered Date: 10/05/2019 10:45:00 [...] hydronephrosis. Electronically signed: Robinson Castellanos. Transcribed by: [email or web address], User Resident: Electronically Signed by: ROBINSON CASTELLANOS @ 10/05/2019 03:41 PM Normal [facility] Comment on above: Order Comment: Cedar nephrosis Vital Signs Date Time Vital Sign Value Performing Clinician Facility 09-19-2023 13:53-0500 Body height 172.7 cm Shaikh Cornelio LEMON Work Phone: [facility] 09-19-2023 13:53-0500 Body mass index (BMI) [Ratio] 28.43 kg/m2 Shaikh Cornelio LEMON Work Phone: [facility] 09-19-2023 13:53-0500 Body temperature 97.5 [degF] Shaikh Cornelio LEMON Work Phone: [facility] 09-19-2023 13:53-0500 Body weight 84.82 kg Shaikh Cornelio LEMON Work Phone: [facility] 09-19-2023 13:53-0500 Diastolic blood pressure 60 mm[Hg] Shaikh Cornelio LEMON Work Phone: [facility] 09-19-2023 13:53-0500 Heart rate 59 /min Shaikh Cornelio LEMON Work Phone: [facility] 09-19-2023 13:53-0500 SaO2% (BldA) [Mass fraction] 95 % Shaikh Cornelio LEMON Work Phone: [facility] 09-19-2023 13:53-0500 Systolic blood pressure 118 mm[Hg] Shaikh Cornelio LEMON Work Phone: [facility] 01-25-2023 10:00-0400 Body height 167.64 cm Ichibabarbara [employer] Other [facility] Other 01-25-2023 10:00-0400 Body mass index (BMI) [Ratio] 31.57 kg/m2 Ichibabarbara [employer] Other [facility] Other 01-25-2023 10:00-0400 Body temperature 96.2 [degF] Ichibabarbara [employer] Other [facility] Other 01-25-2023 10:00-0400 Body weight 88.72 kg Ichibabarbara [employer] Other [facility] Other 01-25-2023 10:00-0400 Diastolic blood pressure 76 mm[Hg] Ichibabarbara [employer] Other [facility] Other 01-25-2023 10:00-0400 Respiratory rate 20 /min Ichibabarbara [employer] Other [facility] Other 01-25-2023 10:00-0400 SaO2% (BldA) [Mass fraction] 98 % Lisseth Edmondss Other [facility] Other 01-25-2023 10:00-0400 Systolic blood pressure 147 mm[Hg] Lisseth Edmondss Other [facility] Other 08-15-2022 15:40-0500 Body height 167.6 cm Ebony Mandeep DO Work Phone: [facility] 08-15-2022 15:40-0500 Body weight 89.81 kg Ebony Mandeep DO Work Phone: [facility] 08-15-2022 15:40-0500 Diastolic blood pressure 78 mm[Hg] Ebony Mandeep DO Work Phone: [facility] 08-15-2022 15:40-0500 Heart rate 61 /min Ebony Mandeep DO Work Phone: [facility] 08-15-2022 15:40-0500 SaO2% (BldA) [Mass fraction] 100 % Ebony Mandeep DO Work Phone: [facility] 08-15-2022 15:40-0500 Systolic blood pressure 148 mm[Hg] Ebony Mandeep DO Work Phone: [facility] 07-10-2022 14:40-0500 Body height 167.64 cm Lisseth Edmondss Other [employer] Other 07-10-2022 14:40-0500 Body mass index (BMI) [Ratio] 31.95 kg/m2 Lisseth Edmondss Other [employer] Other 07-10-2022 14:40-0500 Body weight 89.81 kg Lisseth Edmondss Other [employer] Other 07-10-2022 14:40-0500 Diastolic blood pressure 70 mm[Hg] Lisseth Toscano Other [employer] Other 07-10-2022 14:40-0500 SaO2% (BldA) [Mass fraction] 95 % Lisseth Toscano Other [employer] Other 07-10-2022 14:40-0500 Systolic blood pressure 128 mm[Hg] Lisseth Toscano Other [facility] Other 06-05-2022 16:30-0400 Body height 167.64 cm Corona Casesoila Other [employer] Other 06-05-2022 16:30-0400 Body mass index (BMI) [Ratio] 32.12 kg/m2 Corona Casesoila Other [facility] Other 06-05-2022 16:30-0400 Body temperature 96.5 [degF] Corona Casesoila Other [employer] Other 06-05-2022 16:30-0400 Body weight 90.27 kg Corona Casesoila Other [facility] Other 06-05-2022 16:30-0400 Diastolic blood pressure 82 mm[Hg] Corona Casesoila Other [employer] Other 06-05-2022 16:30-0400 Respiratory rate 20 /min Corona Casesoila Other [employer] Other 06-05-2022 16:30-0400 SaO2% (BldA) [Mass fraction] 96 % Wallacekaren Monroe Other [employer] Other 06-05-2022 16:30-0400 Systolic blood pressure 140 mm[Hg] Wallacekaren Monroe Other [employer] Other 04-10-2022 09:44-0400 Body height 165.1 cm Ebony Mandeep DO Work Phone: [facility] 04-10-2022 09:44-0400 Body weight 89.68 kg Ebony Mandeep DO Work Phone: [facility] 04-10-2022 09:44-0400 Diastolic blood pressure 69 mm[Hg] Ebony Mandeep DO Work Phone: [facility] 04-10-2022 09:44-0400 Heart rate 57 /min Ebony Mandeep DO Work Phone: [facility] 04-10-2022 09:44-0400 Systolic blood pressure 146 mm[Hg] Ebony Mandeep DO Work Phone: [facility] 02-27-2022 15:30-0400 Body height 167.64 cm Wallacekaren Monroe Other [facility] Other 02-27-2022 15:30-0400 Body mass index (BMI) [Ratio] 31.95 kg/m2 Wallacekaren Monroe Other [facility] Other 02-27-2022 15:30-0400 Body temperature 96.9 [degF] Corona Monroe Other [facility] Other 02-27-2022 15:30-0400 Body weight 89.81 kg Corona Monroe Other [facility] Other 02-27-2022 15:30-0400 Diastolic blood pressure 76 mm[Hg] Kamal Chaban Other [facility] Other 02-27-2022 15:30-0400 Respiratory rate 20 /min Corona Caseban Other [facility] Other 02-27-2022 15:30-0400 SaO2% (BldA) [Mass fraction] 97 % Corona Caseban Other [facility] Other 02-27-2022 15:30-0400 Systolic blood pressure 142 mm[Hg] Wallaceal Chaban Other [facility] Other 01-29-2022 12:00-0400 Body height 167.64 cm Cristo Suazo Other [facility] Other 01-29-2022 12:00-0400 Body mass index (BMI) [Ratio] 32.84 kg/m2 Cristo Suazo Other [facility] Other 01-29-2022 12:00-0400 Body weight 92.31 kg Cristo Suazo Other [facility] Other 01-29-2022 12:00-0400 Diastolic blood pressure 78 mm[Hg] Cristo Suazo Other [facility] Other 01-29-2022 12:00-0400 Respiratory rate 18 /min Cristo Lambahan Other [facility] Other 01-29-2022 12:00-0400 SaO2% (BldA) [Mass fraction] 98 % Cristo Lambahan Other [facility] Other 01-29-2022 12:00-0400 Systolic blood pressure 142 mm[Hg] Cristo Suazo Other [facility] Other 12-26-2021 17:00-0400 Body height 167.64 cm Cristo Suazo Other [facility] Other 12-26-2021 17:00-0400 Body mass index (BMI) [Ratio] 31.15 kg/m2 Cristo Suazo Other [facility] Other 12-26-2021 17:00-0400 Body weight 87.54 kg Cristo Suazo Other [facility] Other 12-26-2021 17:00-0400 Diastolic blood pressure 79 mm[Hg] Cristo Suazo Other [facility] Other 12-26-2021 17:00-0400 Respiratory rate 18 /min Cristo Suazo Other [facility] Other 12-26-2021 17:00-0400 SaO2% (BldA) [Mass fraction] 95 % Cristo Suazo Other [facility] Other 12-26-2021 17:00-0400 Systolic blood pressure 161 mm[Hg] Cristo Suazo Other [facility] Other 12-22-2021 08:25-0400 Body height 165.1 cm Jessie Lay MD Work Phone: [facility] 12-22-2021 08:25-0400 Body weight 87.68 kg Jessie Lay MD Work Phone: [facility] 12-22-2021 08:25-0400 Diastolic blood pressure 70 mm[Hg] Jessie Lay MD Work Phone: [facility] 12-22-2021 08:25-0400 Heart rate 59 /min Jessie Lay MD Work Phone: [facility] 12-22-2021 08:25-0400 Systolic blood pressure 153 mm[Hg] Jessie Lay MD Work Phone: [facility] 05-23-2021 15:40-0400 Body height 167.64 cm Reuben Mccrarymckenzie Other [facility] Other 05-23-2021 15:40-0400 Body mass index (BMI) [Ratio] 30.84 kg/m2 Reuben Triana Other [facility] Other 05-23-2021 15:40-0400 Body temperature 96.3 [degF] Reuben Mccrarymckenzie Other [facility] Other 05-23-2021 15:40-0400 Body weight 86.68 kg Reuben Triana Other [facility] Other 05-23-2021 15:40-0400 Diastolic blood pressure 62 mm[Hg] Reuben Triana Other [facility] Other 05-23-2021 15:40-0400 Respiratory rate 18 /min Reuben Mccrarymckenzie Other [facility] Other 05-23-2021 15:40-0400 SaO2% (BldA) [Mass fraction] 94 % Reuben Triana Other [facility] Other 05-23-2021 15:40-0400 Systolic blood pressure 140 mm[Hg] Reuben Mccrarymckenzie Other [facility] Other Encounters Encounter Date Encounter Type Care Provider Facility Start: 09-19-2023 End: 09-19-2023 ambulatory SHAIKH CORNELIO Not Available Start: 09-19-2023 End: 09-19-2023 Office outpatient visit 25 minutes Shaikh Cornelio LEMON Work Phone: [facility] Comment on above: 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, subsequent encounter (Primary Dx); Recurrent major 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) ([facility]); Other hyperlipidemia ([facility]); EDITH (generalized anxiety disorder) ([facility]); CKD (chronic kidney disease) stage 4, GFR 15-29 ml/min ([facility]); Gastroesophageal reflux disease without esophagitis; 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 ([facility]); Primary hypertension ([facility]); Chronic obstructive pulmonary disease, unspecified COPD type ([facility]) Start: 04-09-2023 End: 04-09-2023 Emergency department patient visit NON STAFF Facility:[facility] Start: 04-09-2023 End: 04-09-2023 ambulatory Aziz Bakhous Other [facility] Other Start: 04-09-2023 Telephone encounter Lisseth Bakusamas [facility] Start: 01-25-2023 End: 01-25-2023 ambulatory Aziz Bakhous Other [facility] Other Start: 01-25-2023 Office outpatient vi sit 25 minutes Aziz Bakhous [facility] Start: 08-15-2022 End: 08-15-2022 ambulatory EBONY KAUFMAN Facility:[facility] Start: 08-15-2022 End: 08-15-2022 Patient encounter procedure Ebony Kaufman DO Work Phone: Neurology Comment on above: MCI (mild cognitive impairment) (Primary Dx) Start: 07-27-2022 End: 07-28-2022 ambulatory SHAIKH [place] GRIMES Facility: Start: 07-10-2022 End: 07-10-2022 ambulatory Aziz Bakhous Other [facility] Other Start: 07-10-2022 Office outpatient vi sit 15 minutes Lisseth Toscano [facility] Start: 07-07-2022 End: 07-08-2022 ambulatory AZBARBARA EDMONDSS Facility:[facility] Start: 07-03-2022 End: 07-03-2022 ambulatory Corona Monroe Facility:[facility] Start: 06-26-2022 End: 06-26-2022 ambulatory Nadira Choi Other [facility] Other Start: 06-26-2022 Telephone encounter Nadira Choi [facility] Start: 06-05-2022 End: 06-05-2022 ambulatory Corona Monroe Other [facility] Other Start: 06-05-2022 Office outpatient vi sit 25 minutes Corona Monroe [facility] Start: 05-29-2022 End: 05-29-2022 ambulatory Thomas Hurtado Other [facility] Other Start: 05-29-2022 Telephone encounter Thomsa Hurtado [facility] Start: 05-01-2022 Telephone encounter Malinda garcia [facility] Comment on above: Sign Language Interpreter - O ther (In response to order placed in [facility]) Start: 04-11-2022 End: 04-11-2022 Patient encounter procedure MD Corona Monroe Work Phone: [facility] Start: 04-10-2022 End: 04-10-2022 ambulatory EBONY KAUFMAN Facility:[facility] Start: 04-10-2022 End: 04-10-2022 Patient encounter procedure Ebony Kaufman DO Work Phone: Neurology Comment on above: 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) (Primary Dx); MCI (mild cognitive impairment) Start: 03-13-2022 End: 03-13-2022 ambulatory Thomas Genesis Other [facility] Other Start: 03-13-2022 Telephone encounter Thomas Hurtado [facility] Start: 03-05-2022 End: 03-05-2022 ambulatory Thomas Hurtado Other [facility] Other Start: 03-05-2022 Telephone encounter Thomas Hurtado [facility] Start: 02-28-2022 End: 02-28-2022 ambulatory Corona Monroe Other [facility] Other Start: 02-28-2022 Telephone encounter Corona Monroe [facility] Start: 02-27-2022 End: 02-27-2022 ambulatory Corona Monroe Other [facility] Other Start: 02-27-2022 Office outpatient ne w 45 minutes Corona Monroe [facility] Start: 02-21-2022 Telephone encounter Cristo [facility] [place] Start: 02-21-2022 End: 02-22-2022 ambulatory MEDINA [place] CORNELIO [facility] Other Start: 02-09-2022 End: 02-09-2022 ambulatory [facility] Other Phone: Pulmonary Medicine Comment on above: Spirometry Question regarding M RI BRAIN WO IVCON Start: 02-09-2022 End: 02-09-2022 Patient encounter procedure [facility] Other Phone: [facility] Start: 02-08-2022 End: 02-08-2022 Orders Only Driss Nur MD Work Phone: [facility] Comment on above: Cognitive impairment , mild, so stated (Primary Dx) Shortness of breath (Primary Dx) Cognitive impairment , mild, so stated [G31.84] Start: 02-08-2022 Telephone encounter Thomas Hurtado [facility] Start: 01-29-2022 End: 01-29-2022 ambulatory Cristo Suazo Other [facility] Other Start: 01-29-2022 Office outpatient vi sit 15 minutes Cristo Suazo [facility] [place] Start: 01-05-2022 End: 01-05-2022 ambulatory Cristo Suazo Other [facility] Other Start: 01-05-2022 Telephone encounter Cristo [facility] [place] Start: 01-01-2022 End: 01-01-2022 ambulatory Cristo Suazo Other [facility] Other Start: 01-01-2022 Telephone encounter Cristo [facility]ender [facility] [place] Start: 12-26-2021 End: 12-26-2021 ambulatory Cristo Suazo Other [facility] Other Start: 12-26-2021 Office outpatient vi sit 25 minutes Cristo Suazo [facility] Start: 12-22-2021 End: 12-22-2021 ambulatory JESSIE LAY Facility:[facility] Start: 12-22-2021 End: 12-22-2021 Patient encounter procedure Jessie Lay MD Work Phone: Neurology Comment on above: 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); Cognitive impairment, mild, so stated; Depression, unspecified depression type Start: 12-18-2021 End: 12-18-2021 ambulatory Thomas Genesis Other [facility] Other Start: 12-18-2021 Telephone encounter Thomas Genesis [facility] Start: 12-06-2021 End: 12-06-2021 ambulatory Thomas Genesis Other [facility] Other Start: 12-06-2021 Telephone encounter Thomas Genesis [facility] Start: 12-04-2021 End: 12-04-2021 ambulatory Cristo Suazo Other [facility] Other Start: 12-04-2021 Telephone encounter Cristo [facility] Start: 09-13-2021 End: 09-13-2021 ambulatory Thomas Hurtado Other [facility] Other Start: 09-13-2021 Telephone encounter Thomas Jha [facility] Start: 08-16-2021 End: 08-16-2021 ambulatory Cristo Suazo Other [facility] Other Start: 08-16-2021 Telephone encounter Cristo [facility] Start: 05-30-2021 Telephone encounter Cristo [facility] Start: 05-23-2021 Office outpatient vi sit 25 minutes Reuben Triana [facility] [place] Start: 05-23-2021 Telephone encounter Susannah salazar [facility] Start: 04-03-2018 End: 04-04-[address] [facility] [place] Start: 03-28-2018 End: 03-29-[address] [facility] [place] Procedures Date Procedure Procedure Detail Performing Clinician Start: 02-09-2022 Brncdilat rspse spmt ry pre&post-brncdilat admn Igor Lao MD Work Phone: Start: 02-08-2022 MRI 3D POST PROCESSING Driss Nur MD Work Phone: Start: 02-08-2022 Mri brain brain stem w/o contrast material Jessie Lay MD Work Phone: Start: 12-22-2021 Adult depression scr eening assessment Jessie Lay MD Work Phone: Start: 06-21-2021 Colonoscopy Shaikh Shadia silva MD Work Phone: Plan of Treatment Date Care Activity Detail Author Start: 06-21-2031 Screening for malign ant neoplasm of colon [facility] Start: 12-24-2023 End: 12-24-2023 Patient encounter procedure 12/24/2023 1:15 PM EDT Office Visit [facility] [address] [place] [address] Shaikh Grimes MD [address] [place] [address] [facility] Start: 09-19-2023 End: 09-19-2024 CBC W Auto Differential panel - Blood CBC and differential Lab Routine Recurrent major 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) (CMS/HCC) CKD (chronic kidney disease) stage 4, GFR 15-29 ml/min (CMS/HCC) 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 (CMS/HCC) Primary hypertension (CMS/HCC) Expected: 09/19/2023 (Approximate), Expires: 09/19/2024 [facility] Work Phone: Comment on above: Expected: 09/19/2023 (Approximate), Expires: 09/19/2024 Start: 09-19-2023 End: 09-19-2024 Comprehensive metabolic 2000 panel - Serum or Plasma Comprehensive metabolic panel Lab Routine Recurrent major 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) (CMS/HCC) CKD (chronic kidney disease) stage 4, GFR 15-29 ml/min (CMS/HCC) 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 (CMS/HCC) Primary hypertension (CMS/HCC) Expected: 09/19/2023 (Approximate), Expires: 09/19/2024 [facility] Comment on above: Expected: 09/19/2023 (Approximate), Expires: 09/19/2024 Start: 09-19-2023 End: 09-19-2024 Creatinine [Mass/volume] in Urine Creatinine, urine, random Lab Routine CKD (chronic kidney disease) stage 4, GFR 15-29 ml/min (CMS/HCC) Expected: 09/19/2023 (Approximate), Expires: 09/19/2024 [facility] Comment on above: Expected: 09/19/2023 (Approximate), Expires: 09/19/2024 Start: 09-19-2023 End: 09-19-2024 Lipid 1996 panel - Serum or Plasma Lipid panel Lab Routine Other hyperlipidemia ([facility]) Expected: 09/19/2023 (Approximate), Expires: 09/19/2024 [facility] Comment on above: Expected: 09/19/2023 (Approximate), Expires: 09/19/2024 Start: 09-19-2023 End: 09-19-2024 Protein, urine, random Protein, urine, random Lab Routine CKD (chronic kidney disease) stage 4, GFR 15-29 ml/min ([facility]) Expected: 09/19/2023 (Approximate), Expires: 09/19/2024 [facility] Comment on above: Expected: 09/19/2023 (Approximate), Expires: 09/19/2024 Start: 04-12-2023 Influenza vaccination Influenza Vacc ine (#1) [facility] Start: 12-22-2022 Adult depression screening assessment DEPRESSION SCREENING [facility] Start: 08-12-2022 ADVANCE DIRECTIVE DISCUSSION ADVANCE DIRECTIVE DISCUSSION [facility] Start: 04-12-2022 Influenza vaccination INFLUENZA (#1) [facility] Start: 02-09-2022 End: 03-10-2023 SPIROMETRY WITH DILATOR IF OBSTRUCTED [facility] Work Phone: Comment on above: Expected: 02/09/2022 , Expires: 03/10/2023 Start: 12-22-2021 End: 02-21-2022 SYPHILIS TOTAL W/REFLEX SYPHILIS TOTAL W/REFLEX Lab Routine Cognitive impairment, mild, so stated 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) Depression, unspecified depression type Expected: 12/22/2021, Expires: 02/21/2022 [facility] [facility] Work Phone: Comment on above: Expected: 12/22/2021 , Expires: 02/21/2022 Start: 12-22-2021 End: 02-21-2022 Thyrotropin [Units/volume] in Serum or Plasma TSH BLD Lab Routine Cognitive impairment, mild, so stated 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) Depression, unspecified depression type Expected: 12/22/2021, Expires: 02/21/2022 [facility] Work Phone: Comment on above: Expected: 12/22/2021 , Expires: 02/21/2022 Start: 12-22-2021 End: 02-21-2022 VITAMIN B12 BLOOD VITAMIN B12 BLOOD Lab Routine Cognitive impairment, mild, so stated 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) Depression, unspecified depression type Expected: 12/22/2021, Expires: 02/21/2022 [facility] Work Phone: Comment on above: Expected: 12/22/2021 , Expires: 02/21/2022 Start: 12-05-2021 COVID-19 VACCINE (4 - Booster for Pfizer series) COVID-19 VACCINE (4 - Booster for Pfizer series) [facility] Start: 10-01-2021 COVID-19 VACCINE (4 - Booster for Pfizer series) COVID-19 VACCINE (4 - Booster for Pfizer series) [facility] Start: 08-12-2021 ADVANCE DIRECTIVE DISCUSSION ADVANCE DIRECTIVE DISCUSSION [facility] Start: 2018 PNEUMOCOCCAL: 65+ (1 - PCV) PNEUMOCOCCAL: 65+ (1 - PCV) [facility] Start: 2018 PNEUMOVAX AGE 65 AND OVER WITH 5YR LOOKBACK (#1) PNEUMOVAX AGE 65 AND OVER WITH 5YR LOOKBACK (#1) [facility] Start: 2008 PROSTATE CANCER SCREENING DISCUSSION PROSTATE CANCER SCREENING DISCUSSION [facility] Start: 2003 SHINGRIX VACCINE (1 of 2) SHINGRIX VACCINE (1 of 2) [facility] Start: 1998 COLOGUARD (FIT-DNA) COLOGUARD (FIT-D NA) [facility] Start: 1998 Colonoscopy COLONOSCOPY [facility] Start: 1998 COLORECTAL CANCER SCREENING COLORECTAL CANCER SCREENING [facility] Start: [address] COLONOGRAPHY [facility] Start: 1998 DIABETES SCREEN DIABETES SCREEN [facility] Start: 1998 FECAL OCCULT BLOOD FECAL OCCULT BLOO D [facility] Start: 1998 SIGMOIDOSCOPY SIGMOIDOSCOPY [facility] Start: 1988 LIPID SCREEN LIPID SCREEN [facility] Start: 1972 Urine microalbumin profile DTAP,TDAP,TD (1 - Tdap) [facility] Start: 1971 HEPATITIS C SCREENING HEPATITIS C SC DARA [facility] Start: 1955 Screening for malign ant neoplasm of colon [facility] End: 01-21-2023 Mri brain brain stem w/o contrast material MRI BRAIN WO IVCON Radiology Routine Cognitive impairment, mild, so stated 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) Depression, unspecified depression type 1 Occurrences starting 12/22/2021 until 01/21/2023 [facility] Work Phone: Comment on above: 1 Occurrences starti ng 12/22/2021 until 01/21/2023 [facility] Immunizations Immunization Date Immunization Notes Care Provider [facility] 08-06-2021 COVID-19 Vaccine Pfi zer - Documentation Purposes Only Corona Monroe Other [facility] Other 05-23-2021 influenza, high dose seasonal, preservative-free Susannah Nevarez Other [facility] Other 05-23-2021 Influenza, High-dose Seasonal, Quadrivalent, Preservative Free Shaikh Cornelio LEMON Work Phone: [facility] 05-23-2021 influenza virus vaccine, unspecified formulation Shaikh Cornelio LEMON Work Phone: [facility] 11-08-2020 COVID-19 Pfizer Susannah montano Other [facility] Other 10-19-2020 COVID-19 Vaccine Pfi zer - Documentation Purposes Only Susannah Nevarez Other [facility] Other 08-03-2020 influenza, high dose seasonal, preservative-free Susannah Nevarez Other [facility] Other 08-03-2020 pneumococcal polysaccharide vaccine, 23 valent Susannah Nevarez Other [facility] Other 08-03-2020 Influenza, High-dose Seasonal, Quadrivalent, Preservative Free Shaikh Cornelio LEMON Work Phone: [facility] 08-27-2019 pneumococcal conjuga te vaccine, 13 valent Susannah Nevarez Other [facility] Other Payers Date Payer Category Payer Self-pay [id number] 2020 Unknown [employer] PPO [id number] 2020-Present [phone] [address] [place] [address] PPO [id number] 2018 Unknown 2015 Medicare MEDICARE MEDICAR E A AND B [id number] 2015-Present [phone] [address] [address] [place] [address] Medicare [id number] 2015 Medicare [id number] 1959 [facility] [id number] 1959 Medicare [id number] 1953 Unknown [id number] 1953 Unknown [id number] 1953 Unknown [id number] 1953 Unknown [id number] Unknown [facility] [id number] Unknown [id number] 31 Unknown [id number] Social History Date Type Detail Facility Start: 12-22-2021 End: 08-15-2022 Tobacco smoking status IAIS Never smoked tobacco [facility] Start: 12-22-2021 End: 04-10-2022 Tobacco use and exposure User of smokeless tobacco [facility] End: 07-14-2022 History of tobacco use Chews Tobacco [facility] Start: 1955 Sex Assigned At Not on file C [facility] Start: 12-12-2021 End: 04-10-2022 Exposure to SARS-CoV-2 (event) Not sure [facility] Start: 07-22-2023 End: 09-19-2023 Sex Assigned At [facility] Start: 09-30-2020 End: 07-12-2023 Tobacco smoking status [facility] Ex-smoker (finding) [facility] Start: 1955 Sex Assigned At Male F [facility] Start: 08-15-2022 Tobacco use and exposure Former smokeless tobacco user [facility] History of tobacco use Current smoker [facility] History of tobacco use Cigarette Smoker [facility] Start: 07-12-2023 Tobacco use and exposure Smokeless tobacco non-user [facility] Start: 09-19-2023 Alcohol intake Lifetime non-d kevin (finding) [facility] Start: 07-22-2023 End: 09-19-2023 History of Social function [facility] Within the last year , have you been afraid of your partner or ex-partner? No [facility] Are you now , , , , never or living with a partner? [facility] How often to you hav e a drink containing alcohol? Never [facility] How many standard drinks containing alcohol do you have on a typical day? Patient does not drink [facility] How hard is it for y ou to pay for the very basics like food, housing, medical care, and heating Somewhat hard [facility] Do you feel stress - tense, restless, nervous, or anxious, or unable to sleep at night because your mind is troubled all the time - these days [OSQ] Very much [facility] (I/We) worried whelalitha er (my/our) food would run out before (I/we) got money to buy more. Never true [facility] Start: 07-12-2023 Alcohol Comment caffeine: 1-2 cups per day [facility] Medical Equipment Procedure Code Equipment Code Equipment Origin al Text Equipment Identifier Dates Repair, hernia, umbilical Abdominal hernia surgical mesh, composite-polymer [id number] [facility] Start: 09-30-2020 Clinical Notes 05-23-2021 to 09-19-2023 Shaikh Cornelio MD - 09/19/2023 5:35 PM Brian Grimes MD - 09/19/2023 5:35 PM Brian Grimes MD - 09/19/2023 5:35 PM Brian Grimes MD - 09/19/2023 5:34 PM ESTPatient Instructions Note Date & Type Note Facility 09-19-2023 History of Presen t illness Narrative Associated Problem(s): EDITH (generalized anxiety disorder) (CMS/HCC) Improved now. C/w current regimen. Associated Problem(s): Other hyperlipidemia (CMS/HCC) Check Lipid panel. Associated Problem(s): Recurrent major 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) (CMS/HCC) Symptoms improved and well controlled since Zoloft was increased to 200 mg. C.w wellbutrin, zoloft, buspirone, trazodone and olanzapine. No SI/HI. Associated Problem(s): Traumatic complete tear of left rotator cuff Noted on MRI - following Orthopedics. Patient has a follow up appointment next week and it appears that he will likely need surgery for it. Associated Problem(s): CKD (chronic kidney disease) stage 4, GFR 15-29 ml/min ([facility]) Has an appointment with Nephrology. Avoid NSAIDS. C/w current regimen. 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 On ASA, BB, Imdur, plavix, statin Denies CP, SOB, palpitations. Following [facility] cardiology. Subjective Patient ID: Kel Castillo Jr is a 68 y.o. male who presents for Follow-up (MEDS/SHOULDER). Doing well. No active complaints to offer except for left shoulder pain. He is tolerating his medications well. His mood is better with increased dose of Zoloft. Denies CP, SOB, palpitations. He will see Dr Mcgowan next week to discuss results of MRI Current Outpatient Medications on File Prior to Visit Medication Sig Dispense Refill albuterol HFA 90 mcg/act inhaler Inhale 2 puffs every 4 (four) hours if needed for wheezing nitroglycerin (Nitrostat) 0.[address] 0.4 mg under the tongue every 5 (five) minutes if needed for chest pain [DISCONTINUED] amLODIPine (Norvasc) 5 MG tablet Take 5 mg by mouth in the morning and 5 mg before bedtime. [DISCONTINUED] aspirin 81 MG EC tablet Take 81 mg by mouth in the morning. [DISCONTINUED] atorvastatin (Lipitor) 80 MG tablet Take 80 mg by mouth in the morning. [DISCONTINUED] buPROPion XL (Wellbutrin XL) 300 MG 24 hr tablet Take 300 mg by mouth in the morning. Do not crush, chew, or split.. [DISCONTINUED] busPIRone (Buspar) 15 MG tablet Take 15 mg by mouth in the morning and 15 mg before bedtime. [DISCONTINUED] clopidogrel (Plavix) 75 MG tablet Take 75 mg by mouth at bedtime [DISCONTINUED] famotidine (Pepcid) 20 MG tablet Take 20 mg by mouth in the morning and 20 mg before bedtime. [DISCONTINUED] fenofibrate micronized (Antara) 43 MG capsule Take 43 mg by mouth in the morning. Take with meals. [DISCONTINUED] Hjfnijqwzow-Sswfdyann-Ogxdcg (Trelegy Ellipta) 100-62.5-25 MCG/ACT aerosol powder Inhale [DISCONTINUED] isosorbide mononitrate ER (Imdur) 60 MG 24 hr tablet Take 60 mg by mouth in the morning. Do not crush or chew.. [DISCONTINUED] metoprolol tartrate (Lopressor) 50 MG tablet Take 50 mg by mouth in the morning and 50 mg before bedtime. [DISCONTINUED] OLANZapine (ZyPREXA) 7.5 MG tablet Take 7.5 mg by mouth at bedtime [DISCONTINUED] sertraline (Zoloft) 100 MG tablet Take 200 mg by mouth at bedtime [DISCONTINUED] traZODone (Desyrel) 100 MG tablet Take 100 mg by mouth at bedtime No current facility-administered medications on file prior to visit. No Known Allergies Review of System All systems negative except as mentioned in HPI. Visit Vitals BP 118/60 (BP Location: Left arm, Patient Position: Sitting, BP Cuff Size: Large adult) Pulse 59 Temp 97.5 F (Tympanic) Ht 5' 8 Wt 187 lb SpO2 95% BMI 28.43 kg/m Smoking Status Former BSA 2.02 m Patient Health Questionnaire-2 Score: 0 @LABRESULTS@ No images are attached to the encounter. Objective Reports left shoulder pain, restricted ROM due to pain. Physical Exam General: Comfortable, NAD HEENT: AT/NC. Resp: Normal RR, CTA b/l CVS: Normal HR, No mumur noted. Neuro: AAOX 3, moving all extremities. Psych: Calm, co operative, no HI/SI. Assessment/Plan Problem List Items Addressed This Visit Recurrent major 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) ([facility]) Symptoms improved and well controlled since Zoloft was increased to 200 mg. C.w wellbutrin, zoloft, buspirone, trazodone and olanzapine. No SI/HI. 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 On ASA, BB, Imdur, plavix, statin Denies CP, SOB, palpitations. Following [facility] cardiology. Relevant Medications aspirin 81 MG EC tablet isosorbide mononitrate ER (Imdur) 60 MG 24 hr tablet metoprolol tartrate (Lopressor) 50 MG tablet clopidogrel (Plavix) 75 MG tablet Other Relevant Orders CBC and differential Comprehensive metabolic panel Other hyperlipidemia ([facility]) Check Lipid panel. Relevant Medications atorvastatin (Lipitor) 80 MG tablet fenofibrate micronized (Antara) 43 MG capsule Other Relevant Orders Lipid panel CKD (chronic kidney disease) stage 4, GFR 15-29 ml/min ([facility]) Has an appointment with Nephrology. Avoid NSAIDS. C/w current regimen. Relevant Orders CBC and differential Comprehensive metabolic panel Protein, urine, random Creatinine, urine, random Gastroesophageal reflux disease without esophagitis Relevant Medications famotidine (Pepcid) 20 MG tablet EDITH (generalized anxiety disorder) ([facility]) Improved now. C/w current regimen. Relevant Medications sertraline (Zoloft) 100 MG tablet traZODone (Desyrel) 100 MG tablet Traumatic complete tear of left rotator cuff - Primary Noted on MRI - following Orthopedics. Patient has a follow up appointment next week and it appears that he will likely need surgery for it. Other Visit Diagnoses Primary hypertension (CMS/HCC) Relevant Medications amLODIPine (Norvasc) 5 MG tablet isosorbide mononitrate ER (Imdur) 60 MG 24 hr tablet metoprolol tartrate (Lopressor) 50 MG tablet Other Relevant Orders CBC and differential Comprehensive metabolic panel Chronic obstructive pulmonary disease, unspecified COPD type (CMS/HCC) Relevant Medications Tzkgwiawcqx-Gthfpstlv-Rykacc (Trelegy Ellipta) 100-62.5-25 MCG/ACT aerosol powder No follow-ups on file. documented in this encounter [facility] 08-15-2022 Note HNO ID: [id number] Author: Ebony Kaufman DO Service: ? Author Type: Physician Type: Progress Notes Filed: 08/15/2022 5:31 PM Note Text: [facility] General Neurology Follow up/ Established patient visit Individuals who were included in, or assisted with the encounter were: Samir Castillo Ebony Kaufman DO Chief Complaint/Issues: Samir Castillo is a 67 year old male seen in the [facility] for: Follow-up Most [...] AND 1/2 TABLETS BY MOUTH EVERY DAY Vvwxdbguvjxdy-Yeoxwmss-Xygjnx (MULTIVITAMIN 50 PLUS) tab Take 1 tablet by mouth once daily. omega 0-omy-ctn-fish oil (FISH OIL) 100-160-1,000 mg cap Take by mouth. methylPREDNISolone (MEDROL, TEAGAN,) 4 mg Dose-Pack Take as instructed (Patient not taking: No sig reported) No current facility-administered medications for this (more content not included)... [facility] 08-15-2022 Instructions Ebony Kaufman DO - 08/15/2022 4:17 PM EST Please work with your doctor on the sleep apnea and psychiatrist for depression. Follow-up in 6 months. documented in this encounter [facility] 08-15-2022 History of Presen t illness Narrative Images from the original note were not included. [facility] Follow up/ Established patient visit Individuals who were included in, or assisted with the encounter were: Samir Castillo Ebony Kuafman DO Chief Complaint/Issues: Samir Castillo is a 67 year old male seen in the [facility] for: Follow-up Most [...] Plan 08/15/2022 - General Neurology, Ebony Kaufman, ASSESSMENT Mr. Castillo is a 67 year [...] AND 1/2 TABLETS BY MOUTH EVERY DAY Xddebzlmktibd-Ymiseein-Uvsqrj (MULTIVITAMIN 50 PLUS) tab Take 1 tablet by mouth once daily. omega 9-yvu-vzi-fish oil (FISH OIL) 100-160-1,000 mg cap Take [...] which included preparing to see the patient, fqtz-zw-pczf patient care, completing clinical documentation, obtaining and/or reviewing separately obtained history, performing a medically appropriate examination, counseling and educating the patient/family/caregiver, and ordering medications, tests, or procedures. Ebony Kaufman DO documented in this encounter [facility] 07-10-2022 Evaluation note Encounter Date Diagnosis [...] mmol/L. 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 Other 10-18-2022 Evaluation note* Encounter Date Diagnosis Assessment Notes Treatment Notes Treatment Clinical Notes May, Depression, major, recurrent, moderate (ICD-10 - F33.1) [facility] [employer] [facility] Other 08-30-2022 NoteHNO ID: [id number] Author: Ebony Kaufman DO Service: ? Author Type: Physician Type: Progress Notes Filed: 04/12/2022 12:26 AM Note Text: [facility] New Patient Evaluation Consulting Provider: Jessie Lay [address] [facility] [address] Individuals who were included in, or assisted with the encounter were: Samir Castillo Ebony Kaufman DO Chief Complaint/Issues: Samir Castillo is a 66 year old male seen in the [facility] for: Memory HPI: [...] notices problems with both short term and fci memory Language: yes, word finding problems. Knows [...] (PEPCID) 20 mg ta (more content not included)...[facility] 04-10-2022 Instructions* Patient Instructions* Ebony Kaufman DO [...] Follow-up in four months. [facility] History of Present illness Narrative* Ebony Kaufman DO - 04/10/2022 10:11 AM EDT Images from the original note were not included. [facility] New Patient Evaluation Consulting Provider: Jessie Lay [address] [facility] [address] Individuals who were included in, or assisted with the encounter were: Samir Castillo Ebony Kaufman DO Chief Complaint/Issues: Samir Castillo is a 66 year old male seen in the [facility] for: Memory HPI: [...] notices problems with both short term and lobsterman memory Language: yes, word finding problems. Knows [...] AND 1/2 TABLETS BY MOUTH EVERY DAY Prsmunhwrtlsn-Mbideryz-Agzibi (MULTIVITAMIN 50 PLUS) tab Take 1 tablet by mouth once daily. omega 3-pvm-euo-fish oil (FISH OIL) 100-160-1,000 mg cap Take [...] which included preparing to see the patient, rrae-ko-cpvj patient care, completing clinical documentation, obtaining and/or reviewing separately obtained history, performing a medically appropriate examination, and counseling and educating the patient/family/caregiver. Ebony Kaufman DO [facility] NoteHNO ID: [id number] Author: Janell Polanco, PhD Service: ? Author Type: Psychologist Type: Progress Notes Filed: 03/25/2022 12:25 PM Note Text: [facility] Department of Neurology Section of Neuropsychology Neuropsychological Evaluation Report PATIENT NAME: Samir Castillo DATE OF : 1955 DATE OF SERVICE: 03/21/2022 REFERRAL SOURCE: Jessie Lay MD RELEVANT BACKGROUND: The details of the patient's medical history are contained in the medical record and will be summarized briefly here. MrBren Castillo is a 66 year old, right-handed man who completed 10 years of formal education and a GED. He reported history of childhood difficulties in reading, spelling, mathematics, and attention/concentration without educational intervention. The patient lives with his and nephew; his daughter accompanied him today. 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 Brain MRI (02/08/2022) noted severe generalized volume [...] interest in transferring his psychiatric care to [facility]. The patient reported being sober since [...] stroke, and seizure. CURRENT MEDICATIONS, PER RECORDS (SANITATION ENGINEER-relevant medications in bold): Medication albuterol HFA (PROVENTIL [...] mg tablet sertraline (ZOLOFT) 100 mg tablet Ukoieslsgyver-Grqyjvun-Mgthtm (MULTIVITAMIN 50 PLUS) tab omega 7-qfg-hkr-fish oil (FISH OIL) 100-160-1,000 mg cap methylPREDNISolone (MEDROL, TEAGAN,) 4 mg Dose-Pack FAMILY HISTORY: patient reported depression (mother, daughter) and diabetes (mother); denied family history of neurodegenerative conditions. BEHAVIORAL OBSERVATIONS: The patient presented as a casual (more content not included)...[facility]08-02-20[facility] Evaluation note* Encounter Date Diagnosis Assessment Notes Treatment Notes Treatment Clinical Notes Mar, Depression, major, recurrent, moderate (ICD-10 - F33.1) [facility] Other 07-25-2022 Evaluation note* Encounter Date Diagnosis Assessment Notes Treatment Notes Treatment Clinical Notes Feb, Depression, major, recurrent, moderate (ICD-10 - F33.1) [facility] Other 07-19-2022 Evaluation note* Encounter Date Diagnosis [...] Sleep apnea, unspecified type (ICD-10 - G47.30) [facility] Other 07-01-2022 Miscellaneous Notes* Telephone Encounter - [...] Dr. Roche Message text documented in this encounter[facility] NoteHNO ID: [id number] Author: Marisol Davis MD Service: ? Author Type: Physician Type: Progress Notes Filed: 02/15/2022 1:05 PM Note Text: Mr. Castillo is a 66 year old male who presents to the [facility] Respiratory [facility]. Consultation requested for an opinion regarding SOB. 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 omega 6-cdn-yni-fish oil (FISH OIL) 100-160-1,000 mg cap Take by mouth. methylPREDNISolone (MEDROL, TEAGAN,) 4 mg Dose-Pack Take as instructed PHYSICAL EXAM: Physical Exam On room air, able to complete sentences, no LE extremity edema No cervical or axillary LAD Chest: Air entry reduced in the lung bases, no wheeze or rhonchi CVS HS1/2 no crackles Abd soft, non tender SANITATION ENGINEER: No focal deficits Labs / Imaging / Diagnostic Studies: All radiography listed below personally reviewed by me Data Reviewed from [facility] (in addition to that noted in HPI, and Past histories above): CMP, CBC PFT: 02/09/2022 ? (more content not included)...[facility]07-01-2022 Note HNO ID: [id number] Author: Brayan Trent CRT Service: ? Author Type: Respiratory Therapist Type: Progress Notes Filed: 02/09/2022 10:57 AM Note Text: PULM FUNCTION SMARTBLOCK: Provider: Prince Aby MD Spirometry w/BD: 1 System: [id number] History of Present illness Narrative* Brayan Trent CRT - 02/09/2022 10:41 AM EDT PULM FUNCTION SMARTBLOCK: Provider: Prince Aby MD Spirometry w/BD: 1 System: MC9 - [id number] documented in this encounterTrihealth [facility]cc[facility]2022 NoteHNO ID: [id number] Author: RT Ed(Rayo) Service: Radiology Author Type: Technologist Type: Progress [...] IV DATA: Not applicable SIGNED BY: RT Ed(Rayo) February 08, 2022 4:21 [facility] History of Present illness Narrative* [facility] Ward) [...] 08, 2022 4:21 PM documented in this encounterTrihealth Mccull[facility]06-20-2022 Evaluation note* Encounter Date Diagnosis Assessment [...] relief. Also reports that he saw his nursing home director recently who does not think that his shortness of breath is related to his heart. He did have an appointment with [facility] but has since decided to see pulmonology in [place]. Given his PFT and CT results I [...] with Dr. Hurtado at their upcoming appointment. [facility] Other 05-27-2022 Evaluation note* Encounter Date Diagnosis Assessment Notes Treatment Notes Treatment Clinical Notes December, Obstructive lung disease (ICD-10 - J44.9) December, Pulmonary nodule (ICD-10 - R91.1) [facility] Other 05-23-2022 Evaluation note* Encounter Date Diagnosis Assessment Notes Treatment Notes Treatment Clinical Notes December, Shortness of breath (ICD-10 - R06.02) [facility] Other 05-17-2022 Evaluation note* Encounter Date Diagnosis [...] that it has not been reviewed yet. December, Essential hypertension (ICD-10 - I10) Blood pressure [...] next month or so we will recheck. [facility] Other 05-13-2022 NoteHNO ID: [id number] Author: Jessie Lay MD Service: ? Author Type: Physician Type: Progress Notes Filed: 12/22/2021 10:51 AM Note Text: [facility] General Neurology New Patient Evaluation Consulting Provider: SELF Individuals who were included in, or assisted with the encounter were: ? Samir Castillo ? Jessie Lay MD Chief Complaint/Issues: Samir Castillo is a 66 year old male seen in the [facility] for General Neurology for: 1. Memory [...] notices problems with both short term and fci memory Language: yes, word finding problems. Knows [...] AT BEDTIME NE (more content not included)... [id number] History of Present illness Narrative* Jessie Lay MD - 12/22/2021 8:41 AM EDT Images from the original note were not included. [facility] General Neurology New Patient Evaluation Consulting Provider: SELF Individuals who were included in, or assisted with the encounter were: Samir Olmedokaren Lay MD Chief Complaint/Issues: Samir Castillo is a 66 year old male seen in the [facility] for General Neurology for: 1. Memory [...] notices problems with both short term and fci memory Language: yes, word finding problems. Knows [...] AND 1/2 TABLETS BY MOUTH EVERY DAY Yflhxknmicylq-Dwzbaysk-Sotsri (MULTIVITAMIN 50 PLUS) tab Take 1 tablet by mouth once daily. omega 6-llf-fow-fish oil (FISH OIL) 100-160-1,000 mg cap Take [...] which included preparing to see the patient, nfcv-gc-raym patient care, completing clinical documentation and performing a medically appropriate examination. Jessie Lay MD documented in this encounterTrihealth Mccull[facility]05-09-2022 Evaluation note* Encounter Date Diagnosis Assessment Notes Treatment Notes Treatment Clinical Notes December, Depression, major, recurrent, moderate (ICD-10 - F33.1) [facility] Other 10-12-2021 Evaluation note* Encounter Date Diagnosis [...] metoprolol. He follow-up with Dr. Rubio, his nursing home director in [place]. He stated that his heart looks fine. He does not know the ejection fraction. He denies chest pain or CHF. With recheck renal panel in 2 to 3-month and if creatinine continues to increase, will obtain another ultrasound since the patient has a history of cancer lung. He does not take any chemotherapy and he stated that the cancer has been cured. 12 May, 2021 Hypertensive chronic kidney disease w stg 1-4/unsp chr kdny (ICD-10 - I12.9) Blood pressure is mildly elevated. He stated that blood pressure at home also runs between 140-150 systolic. [place] systolic blood pressure at home should be [...] his PCP Dr. Arellano for lipid profile. 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)- Primary Other persistent mental disorders due to conditions classified elsewhere Cognitive impairment, mild, so stated Mild cognitive impairment, so stated Depression, unspecified depression type documented in this encounter [facility] noteNo InformationNortEllwood Medical Center [facility] Other Evaluation noteNocass medical center [facility] Other Evaluation note* Diagnosis Cognitive impairment, mild, so stated- Primary Mild cognitive impairment, so stated documented in this encounter [facility] note* Diagnosis Shortness of breath- Primary documented in this encounter [facility] note* Diagnosis Cognitive impairment, mild, so stated Mild cognitive impairment, so stated 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) Other persistent mental disorders due to conditions classified elsewhere Depression, unspecified depression type documented in this encounter [facility] HospitalEvalubeebe healthcare note* Diagnosis Shortness of breath documented in this encounter [facility] note* Diagnosis Recurrent major 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)- Primary Major depressive disorder, recurrent episode, in partial or unspecified remission MCI (mild cognitive impairment) Mild cognitive impairment, so stated documented in this encounter [facility] noteNo assessment information availableSumma Health Work Phone: Evaluation note* Diagnosis MCI (mild cognitive impairment)- Primary Mild cognitive impairment, so stated documented in this encounter [facility] noteNort [employer] Other Evaluation note* Diagnosis Traumatic complete tear of left rotator cuff, subsequent encounter- Primary Recurrent major 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) (CMS/HCC) Major depressive disorder, recurrent episode, in partial or unspecified remission Other hyperlipidemia (CMS/HCC) EDITH (generalized anxiety disorder) (CMS/HCC) Generalized anxiety disorder CKD (chronic kidney disease) stage 4, GFR 15-29 ml/min (CMS/HCC) Chronic kidney disease, Stage IV (severe) Gastroesophageal reflux disease without esophagitis Esophageal reflux 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 (CMS/HCC) Primary hypertension (CMS/HCC) Unspecified essential hypertension Chronic obstructive pulmonary disease, unspecified COPD type (CMS/HCC) documented in this encounter [facility] general Narrative - Reported* Type Description Date Medical History hypertension Medical History hypercholesterolemia Medical History lung cancer Medical History heart disease Medical History A flutter Medical History Esophageal reflux Medical History DEPRESSION AND ANXIETY Surgical History CABG Surgical History hernia Surgical History lobectomy: lung Surgical History [facility] [place] [facility]/Dr Joshi--hernia repair 2020 Hospitalization History see above [facility] Other History general Narrative - ReportedNocass medical center [facility] Other History general Narrative - ReportedNocass medical center [facility] Other Reason for referral (narrative)* Reason * Waiting for appt pulmonology, lung nodule, progressive SOB, hx. lung cancer Diagnosis 1 Pulmonary nodule (R9 1.1) [facility] Referring Provider First Name Cristo Referring Provider Last Name Gabriele Referring Provider Specialty Family Medi cine Referred Organization [facility] Referred Provider Gonsalo Hawley Referred Address [address] [place] [address],[place] [address],[place],[address] Referred Provider Specialty Pulmonary Di finn Referral Priority Routine General Notes Mattie Carballo 01:40:04 PM >referral received and sent p2p successful per log [facility] [facility] Other Reason for referral (narrative)* Outpatient Procedure (Routine) - Pending Review Specialty Diagnoses / Procedures Referred By Contac t Referred To Contact [facility] Diagnoses Shortness of breath Procedures SPIROMETRY WITH DILATOR IF OBSTRUCTED BRNCDILAT RSPSE SPMTRY PRE&POST-BRNCDILAT ADMN Marisol Davis MD [address] [place] [address] [facility] [address] [place] [address] Referral ID Status Reason Start Date Expiration Date Visits Requested Visits Authorized [id number] Pending Review Auto-Generat ed Referral 02/09/2022 03/10/2023 1 1 [facility] for visit NarrativeRef by Dr. Suazo for pulmonology, lung nodule, progressive SOB, hx. lung cancerNortEllwood Medical Center [facility] Other Summary Purpose Family History Relationship Condition Age at Onset Recorded Date/T yanique Not Specified Hypertension Unknown Diabetes mellitus Unknown father Medical history unknown Unknown Advance Directives Advance Directive Response Recorded Date/ Time Advance Directives No July 6:23pm Hospital Course Note MR#: [id number] [facility] Pt. Name: Kel Castillo Admitted: 10/05/2019 [...] Referral Specialty Diagnoses / Procedures Referred By Contac t Referred To Contact MR IMAGING Diagnoses Cognitive impairment, mild, so stated 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) Depression, unspecified depression type Procedures MRI BRAIN WO IVCON MRI BRAIN BRAIN STEM W/[place] [address] [place] [id number] Mr Imaging Referral ID Status Reason Start Date Expiration Date Visits Requested Visits Authorized [id number] Authorized Auto-Generat ed Referral 12/22/2021 01/21/2023 1 1 Specialty Diagnoses / Procedures Referred By Contac t Referred To Contact MR IMAGING Diagnoses Cognitive impairment, mild, so stated Procedures MRI 3D POST PROCESSING 3D RENDERING W/INTERP&POSTPROC DIFF WORK STATION Alonzo Cabrera MD, [address] [place] [address] Mr Imaging Referral ID Status Reason Start Date Expiration Date Visits Requested Visits Authorized [id number] Pending Review Auto-Generat ed Referral 02/08/2022 03/10/2023 1 1 Referral ID Status Reason Start Date Expiration Date V isits Requested Visits Authorized [id number] Closed Auto-Generate d Referral 12/22/2021 01/21/2023 1 1 Specialty Diagnoses / Procedures Referred By Contac t Referred To Contact Psychology Diagnoses Recurrent major 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) Procedures CONSULT TO PSYCHOLOGY OFFICE/OUTPATIENT [facility] 60-74 MINUTES Ebony Kaufman DO [address] [place] [address] Referral ID Status Reason Start Date Expiration Date Visits Requested Visits Authorized [id number] Pending Review PCP Requested Referral 04/10/2022 04/10/2023 1 1 Chief Complaint and Reason for Visit Chief Complaint g47.30 Additional Source Comments (unrecognized sect ion and content) No Status Records FoundNo Status Records FoundNo Status Records FoundNo Status Records FoundNo Status Records FoundNo Status Records FoundNo Status Records Found INFORMATION SOURCE (unrecogn ized section and content) DATE CREATED AUTHOR 04/05/2018 [facility] DATE CREATED AUTHOR AUTHOR'S ORGANIZ ATION 01/06/2020 [facility] DATE CREATED AUTHOR AUTHOR'S ORGANIZ ATION 03/25/2022 [facility] DATE CREATED AUTHOR AUTHOR'S ORGANIZ ATION 08/15/2022 [facility] DATE CREATED AUTHOR AUTHOR'S ORGANIZ ATION 12/19/2022 [facility] DATE CREATED AUTHOR AUTHOR'S ORGANIZ ATION 04/22/2023 [facility] DATE CREATED AUTHOR AUTHOR'S ORGANIZ ATION 09/20/[address] [facility] EPIC Source Comments (unrecognize d section and content) In the event this informatio n is protected by the Federal Confidentiality of Alcohol and Drug Abuse Patient Records regulations: The Federal rules restrict any use of the information to criminally investigate or prosecute any alcohol or drug abuse patient.[facility] HospitalIn the event this information is protected by the Federal Confidentiality of Alcohol and Drug Abuse Patient Records regulations: The Federal rules restrict any use of the information to criminally investigate or prosecute any alcohol or drug abuse patient.[facility] HospitalIn the event this information is protected by the Federal Confidentiality of Alcohol and Drug Abuse Patient Records regulations: The Federal rules restrict any use of the information to criminally investigate or prosecute any alcohol or drug abuse patient.[facility] HospitalIn the event this information is protected by the Federal Confidentiality of Alcohol and Drug Abuse Patient Records regulations: The Federal rules restrict any use of the information to criminally investigate or prosecute any alcohol or drug abuse patient.[facility] HospitalIn the event this information is protected by the Federal Confidentiality of Alcohol and Drug Abuse Patient Records regulations: The Federal rules restrict any use of the information to criminally investigate or prosecute any alcohol or drug abuse patient.[facility] HospitalIn the event this information is protected by the Federal Confidentiality of Alcohol and Drug Abuse Patient Records regulations: The Federal rules restrict any use of the information to criminally investigate or prosecute any alcohol or drug abuse patient.[facility] HospitalIn the event this information is protected by the Federal Confidentiality of Alcohol and Drug Abuse Patient Records regulations: The Federal rules restrict any use of the information to criminally investigate or prosecute any alcohol or drug abuse patient.[facility] HospitalIn the event this information is protected by the Federal Confidentiality of Alcohol and Drug Abuse Patient Records regulations: The Federal rules restrict any use of the information to criminally investigate or prosecute any alcohol or drug abuse patient.[facility] HospitalIn the event this information is protected by the Federal Confidentiality of Alcohol and Drug Abuse Patient Records regulations: The Federal rules restrict any use of the information to criminally investigate or prosecute any alcohol or drug abuse patient.[facility] Reason for Visit (unrecogniz ed section and content) Reason Comments New Patient Memory loss Specialty Diagnoses / Procedures Referred By Contximena t Referred To Contact MR IMAGING Diagnoses Cognitive impairment, mild, so stated 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) Depression, unspecified depression type Procedures MRI BRAIN WO IVCON MRI BRAIN BRAIN STEM W/[place] [address] [place] [address] Mr Imaging Referral ID Status Reason Start Date Expiration Date V isits Requested Visits Authorized [id number] Closed Auto-Generate d Referral 12/22/2021 01/21/2023 1 1 Reason Comments Spirometry Specialty Diagnoses / Procedures Referred By Contac t Referred To Contact [facility] Diagnoses Shortness of breath Procedures SPIROMETRY WITH DILATOR IF OBSTRUCTED BRNCDILAT RSPSE SPMTRY PRE&POST-BRNCDILAT ADMN Marisol Davis MD [address] [place] [address] Res[facility] [address] [place] [address] Referral ID Status Reason Start Date Expiration Date V isits Requested Visits Authorized [id number] Closed Auto-Generate d Referral 02/09/2022 03/10/2023 1 1 Reason Comments New Patient 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) Reason Comments Sign Language Interpreter - Other In response to order placed in [email or web address] Reason Comments Established Patient Reason Comments Follow-up MEDS/SHOULDER Care Teams (unrecognized sec tion and content) Lead Electrical Engineer Relationship Specialty Start Date End Date [facility], [place] [address] [place] [address] [place] Referring Team Psychiatry 12/21/21 Lead Electrical Engineer Relationship Specialty Start Date End Date [facility], [place] [address] [place] [address] NI Referring Team Psychiatry 12/21/21 Lead Electrical Engineer Relationship Specialty Start Date End Date [facility], [place] [address] [place] [address] NI Referring Team Psychiatry 12/21/21 Lead Electrical Engineer Relationship Specialty Start Date End Date [facility], [place] [address] [place] [address] NI Referring Team Psychiatry 12/21/21 Lead Electrical Engineer Relationship Specialty Start Date End Date [facility], [place] [address] [place] [address] NI Referring Team Psychiatry 12/21/21 Lead Electrical Engineer Relationship Specialty Start Date End Date [facility], [place] [address] [place] [address] NI Referring Team Psychiatry 12/21/21 Lead Electrical Engineer Relationship Specialty Start Date End Date [facility], [place] [address] [place] [address] NI Referring Team Psychiatry 12/21/21 Team Status: Inactive Member Role Status Dates Corona Monroe MD Attending Provider Active Daria Cardoza DO Primary Care Provider Active Team Status: Active Member Role Status Dates Daria Cardoza DO Primary Care Provider Active Lead Electrical Engineer Relationship Specialty Start Date End Date [facility], [place] [address] [place] [address] NI Referring Team Psychiatry 12/21/21 Lead Electrical Engineer Relationship Specialty Start Date End Date Shaikh Grimes MD PCP - General Internal Medicine 08/12/22 Goals (unrecognized section and content) Goals may [...] BE BASED ON THE PRIMARY CLINICAL RECORDS. [facility]. provides no warranty or guarantee of the accuracy or completeness of information in this document.
[2023-09-23 08:59] LABS: Basophils Absolute Auto 0.1 10^3/uL (0.0-0.1); Basophils Percent Auto 0.7 % (0.2-2.0); Eosinophils Absolute Auto 0.3 10^3/uL (0.0-0.7); Eosinophils Percent Auto 3.2 % (0.9-7.0); Hematocrit 41.1 % (42.0-54.0); Hemoglobin 12.9 g/dL (14.0-18.0); Immature Granulocytes Abs Auto 0.05 10^3/uL (0.00-0.03); Immature Granulocytes Pct Auto 0.6 % (0.0-0.5); Lymphocytes Absolute Auto 1.1 10^3/uL (1.2-3.8); Lymphocytes Percent Auto 13.4 % (20.5-60.0); Mean Corpuscular HGB Conc 31.4 g/dL (29.9-35.2); Mean Corpuscular Hemoglobin 29.8 pg (25.9-34.0); Mean Corpuscular Volume 94.9 fL (80.0-94.0); Mean Platelet Volume 9.1 fL (9.5-13.5); Monocytes Absolute Auto 0.7 10^3/uL (0.3-0.8); Monocytes Percent Auto 7.8 % (1.7-12.0); Neutrophils Absolute Auto 6.2 10^3/uL (1.4-6.5); Neutrophils Percent Auto 74.3 % (43.0-75.0); Platelet Count 175 10^3/uL (150-450); Red Blood Count 4.33 10^6/uL (4.70-6.10); Red Cell Distribution Width 14.6 % (11.0-15.0); White Blood Count 8.3 10^3/uL (4.0-11.0)
[2023-09-23 09:20] LABS: Protein Creatinine Ratio Urine 0.17; Total Protein Urine Random 27.8 mg/dL (<=11.9)
[2023-09-23 09:43] LABS: Alanine Aminotransferase 67 U/L (16-63); Albumin Globulin Ratio 0.9; Albumin Level 3.7 g/dL (3.4-5.0); Alkaline Phosphatase 133 U/L (46-116); Anion Gap 16.2; Aspartate Amino Transferase 58 U/L (15-37); BUN Creatinine Ratio 15.5; Bilirubin Total 0.5 mg/dL (0.2-1.0); Carbon Dioxide 26.1 mmol/L (21.0-32.0); Chloride 108 mmol/L (98-107); Chol HDL Ratio 2.9; Cholesterol 124 mg/dL (<=200); Estimated GFR (African America 42 (>=60); Estimated GFR (Non-African Ame 34 (>=60); Globulin 4.3 g/dL; Glucose 99 mg/dL (74-106); HDL Cholesterol 43 mg/dL (40-60); LDL Cholesterol Calculated 55.2 mg/dL; Potassium 4.3 mmol/L (3.5-5.1); Sodium 146 mmol/L (136-145); Triglycerides 129 mg/dL (<=150); VLDL CHOLESTEROL 25.8 mg/dL
== END 2023-09-23 08:41 | disposition home or self-care (01) ==
LOC: LAB 08:41
PROVIDERS: PCP Internal Medicine; Visit Provider Internal Medicine
DX: F33.41 Major depressive disorder, recurrent, in partial remission (principal); N18.4 Chronic kidney disease, stage 4 (severe); I25.10 Atherosclerotic heart disease of native coronary artery without angina pectoris; E78.49 Other hyperlipidemia; I12.9 Hypertensive chronic kidney disease with stage 1 through stage 4 chronic kidney disease, or unspecified chronic kidney disease
CPT/HCPCS: 36415; 80053; 80061; 82570; 84156; 85025

== ENCOUNTER 2023-10-10 12:21 | Outpatient (OUT) | payer BC, MEDICARE, SELFPAY ==
--- OUTSIDE RECORDS SUMMARY | 2023-10-10 12:46 | XMS_ITS | CCD ---
Author Name Unknown Address [address] [place] [address] Organization [facility] Care Team Providers Care Communications Intern Name Role Phone AMBURN, JOMAR Unavailable Unavailable [...] Unavailable SHAIKH Randolph GRIMES Primary Care [facility] Attending Unavailable [facility] FLORES Consulting Unavailable VALERIE, DR FLORES Admitting Unavailable BAKHOUS, AZIZ Admitting Unavailable BAKUSAMAS AZIZ Attending Unavailable MANDO AZIZ Consulting Unavailable NON STAFF Primary Care Unavailable Lucy Cope N Admitting Unavailable Lucy Cope Attending Unavailable Chasoila, Kamal Admitting Unavailable Chaban Kamal Attending Unavailable Daria Cardoza Primary Care Unavailable SHAIKH GRIMES Attending Unavailable Shaikh Grimes MD Primary Care Provider [phone] Medications Current Medications Medication Drug Class(es) Dates [...] EC tablet Indications: 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 180 tablet 0 09/19/2023 12/18/2023 Active Start: 10-22-2019 take 50 mg by mouth once daily Metoprolol Succinate Active 50 MG PO Daily October 22, 2019 12:00am take 1 tablet by [facility] every twelve hours Metoprolol Succinate ER 50 MG 1 tablet Orally twice a day for 90 days Active take 1 capsule by mo [facility] twice daily Metoprolol Succinate [...] TABLET BY MOUTH EVERY DAY AT BEDTIME [place]-3 Fatty Acids (1 source) Start: 09-13-2020 take 1000 mg by mouth once daily [place]-3 Fatty Acids Active 1000 MG PO Daily [...] Drug Class(es) Dates Sig (Normalized) Sig (Original) [id number] 200 actuat albuterol 0.09 mg/actuat metered dose [...] 50 PLUS) tab (9 sources) End: 08-15-2022 Deemldmgbqxgu-Hhwwcczj-Kldf in (MULTIVITAMIN 50 PLUS) tab Take 1 tablet by mouth once daily. 0 08/15/2022 Discontinued Multivitamins-Mi nerals-Lutein (MULTIVITAMIN 50 PLUS) tab Take 1 tablet by mouth once daily. 0 Active Comment on above: Take 1 tablet by matt th once daily. 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; Translations: [Coronary [...] conon 0 04-09-2023 CT abdomen pelvis wo [facility] [address] [place] [address] CT Scan Report Signed Patient: Kel Castillo Jr MR#: [id number] : 1955 Acct:[id number] Age/Sex: 67 / M ADM Date: 04/09/23 Loc: ER Room: Type: [facility] ER Attending Dr: Copies to: Lucy Cope APRN Ordering Provider: Lcuy Cope APRN Date of Service: 04/09/23 CT/CT [...] Damien Negrete M.D.04/09/2023 2:28 PM Dictation Location: [place] [address] Transcribed By: [facility] 04/09/23 142 Dictated By: Damien Negrete DO 04/09/23 142 Signed By: 04/09/23 1428 Normal [facility] Complete Blood Count Auto Di ffon 04-09-2023 Basophils (Bld) [#/Vol] 0.1 10*3/uL Normal 0.0-0.2 [facility] Comment on above: Result Comment: PERF ORMED BY: [place] [id number] PATHOLOGIST [employer] TROY SIGALA M.D. Performed By: #### C BC #### [address] Basophils/100 WBC (Bld) 1.0 % Normal . [facility] Comment on above: Performed By: #### C BC #### [place] [address] [place] Eosinophils (Bld) [#/Vol] 0.2 10*3/uL Normal 0.0-0.45 [facility] Comment on above: Performed By: #### C BC #### [address] Eosinophils/100 WBC (Bld) 2.8 % Normal . [facility] Comment on above: Performed By: #### C BC #### [address] Erythrocyte distribution width (RBC) [Ratio] 14.5 % Normal 12.0-14.8 [facility] Comment on above: Performed By: #### C BC #### [address] Hematocrit (Bld) [Volume fraction] 39.2 % Normal 38.8-50.0 [facility] Comment on above: Performed By: #### C BC #### [address] Hemoglobin (Bld) [Mass/Vol] 13.0 g/dL Normal 13.0-17.0 [facility] Comment on above: Performed By: #### C BC #### [address] Lymphocytes (Bld) [#/Vol] 1.1 10*3/uL Normal 1.00-4.8 [facility] Comment on above: Performed By: #### C BC #### [address] Lymphocytes/100 WBC (Bld) 14.1 % Normal . [facility] Comment on above: Performed By: #### C BC #### [address] MCH (RBC) [Entitic mass] 30.4 pg Normal 27.5-35.2 [facility] Comment on above: Performed By: #### C BC #### [address] MCV (RBC) [Entitic vol] 91.5 fL Normal 83.5-101 [facility] Comment on above: Performed By: #### C BC #### [address] Mean Corpuscular HGB Conc 33.2 g/dL Normal 32.5-35.6 [facility] Comment on above: Performed By: #### C BC #### [address] Monocytes (Bld) [#/Vol] 0.5 10*3/uL Normal 0.0-0.8 [facility] Comment on above: Performed By: #### C BC #### [facility] [address] [place] [address] [place] Monocytes/100 WBC (Bld) 16.97 % Normal 0.00-20.00 [facility] Comment on above: Performed By: #### C BC #### [facility] [address] Monocytes/100 WBC (Bld) 6.6 % Normal . [facility] Comment on above: Performed By: #### C BC #### [facility] [address] Neutrophils (Bld) [#/Vol] 5.9 10*3/uL Normal 1.8-7.7 [facility] Comment on above: Performed By: #### C BC #### [address] Neutrophils/100 WBC (Bld) 75.5 % Normal . [facility] Comment on above: Performed By: #### C BC #### [facility] [address] NRBC% 0.0 /100{WBC} Normal 0-0.5 [facility] Comment on above: Performed By: #### C BC #### [address] Platelet mean volume (Bld) [Entitic vol] 7.5 fL Normal 6.6-10.1 [facility] Comment on above: Performed By: #### C BC #### [place] [address] [place] Platelets (Bld) [#/Vol] 180 10*3/uL Normal 150-450 [facility] Comment on above: Performed By: #### C BC #### [place] [address] [place] RBC (Bld) [#/Vol] 4.29 10*6/uL Normal 3.90-5.60 [facility] Comment on above: Performed By: #### C BC #### [facility] [address] WBC (Bld) [#/Vol] 7.8 10*3/uL Normal 4.1-10.5 [facility] Comment on above: Performed By: #### C BC #### [address] Comprehensive Metabolic Pane noe 04-09-2023 Albumin [Mass/Vol] 4.3 g/dL Normal 3.5-5.7 [facility] Comment on above: Performed By: #### P TT, LIPASE, PT, CMP #### [address] Albumin/Globulin [Mass ratio] 1.2 {ratio} Normal [facility] Comment on above: Performed By: #### P TT, LIPASE, PT, CMP #### [address] ALP [Catalytic activity/Vol] 105 U/L High 34-104 [facility] Comment on above: Performed By: #### P TT, LIPASE, PT, CMP #### [address] ALT [Catalytic activity/Vol] 61 U/L High 7-52 [facility] Comment on above: Performed By: #### P TT, LIPASE, PT, CMP #### [address] Anion gap [Moles/Vol] 12.5 mmol/L Normal 6.0-15.0 [facility] Comment on above: Performed By: #### P TT, LIPASE, PT, CMP #### [address] AST [Catalytic activity/Vol] 62 U/L High 13-39 [facility] Comment on above: Performed By: #### P TT, LIPASE, PT, CMP #### [address] Bilirubin [Mass/Vol] 0.8 mg/dL Normal 0.3-1.0 [facility] Comment on above: Performed By: #### P TT, LIPASE, PT, CMP #### [facility] [address] Calcium [Mass/Vol] 9.0 mg/dL Normal 8.6-10.3 [facility] Comment on above: Performed By: #### P TT, LIPASE, PT, CMP #### [address] Chloride [Moles/Vol] 107 mmol/L Normal 98-107 [facility] Comment on above: Performed By: #### P TT, LIPASE, PT, CMP #### [address] CO2 [Moles/Vol] 25.1 mmol/L Normal 21.0-31.0 [facility] Comment on above: Performed By: #### P TT, LIPASE, PT, CMP #### [address] Creatinine [Mass/Vol] 1.76 mg/dL High 0.70-1.30 [facility] Comment on above: Performed By: #### P TT, LIPASE, PT, CMP #### [address] Creatinine Clr Calc Pharmacy 40.17 [facility] Comment on above: Performed By: #### P TT, LIPASE, PT, CMP #### [address] GFR/1.73 sq M.predicted MDRD (S/P/Bld) [Vol rate/Area] 41.342 mL/min/{1.73_m2} [facility] Comment on above: Performed By: #### P TT, LIPASE, PT, CMP #### [address] Globulin (S) [Mass/Vol] 3.7 g/dL [facility] Comment on above: Performed By: #### P TT, LIPASE, PT, CMP #### [address] Glucose [Mass/Vol] 89 mg/dL Normal 70-100 [facility] Comment on above: Result Comment: Roy Glucose Reference Range is dependent on time and content of last meal. Glucose of more than 200 mg/dL in a nonstressed, ambulatory subject supports the diagnosis of Diabetes Mellitus. ADA recommended reference range Performed By: #### P TT, LIPASE, PT, CMP #### [address] Potassium [Moles/Vol] 4.6 mmol/L Normal 3.5-5.1 [facility] Comment on above: Performed By: #### P TT, LIPASE, PT, CMP #### [address] Protein [Mass/Vol] 8.0 g/dL Normal 6.4-8.9 [facility] Comment on above: Performed By: #### P TT, LIPASE, PT, CMP #### [place] [address] [place] Sodium [Moles/Vol] 140 mmol/L Normal 136-145 [facility] Comment on above: Performed By: #### P TT, LIPASE, PT, CMP #### [place] [address] [place] Urea nitrogen [Mass/Vol] 25 mg/dL Normal 7-25 [facility] Comment on above: Performed By: #### P TT, LIPASE, PT, CMP #### [place] [address] [place] Dipstick and Microscopicon 0 04-09-2023 Appearance (U) Cloudy Critically abnormal Clear [facility] Comment on above: Order Comment: Name Collection Type:: Clean-Voided Midstream Performed By: #### A DDONUAPLUS #### [place] [address] [place] Bacteria,Urine None Seen Normal None Seen [facility] Comment on above: Order Comment: Name Collection Type:: Clean-Voided Midstream Performed By: #### A DDONUAPLUS #### [place] [address] [place] Bilirubin,Urine Negative Normal Negative [facility] Comment on above: Order Comment: Name Collection Type:: Clean-Voided Midstream Performed By: #### A DDONUAPLUS #### [place] [address] [place] Color (U) Yellow Normal Yellow [facility] Comment on above: Order Comment: Name Collection Type:: Clean-Voided Midstream Performed By: #### A DDONUAPLUS #### [place] [address] [place] Glucose Ql (U) Normal Normal Normal [facility] Comment on above: Order Comment: Name Collection Type:: Clean-Voided Midstream Performed By: #### A DDONUAPLUS #### [address] Hyaline Casts,Urine None Seen Normal 0-8 [facility] Comment on above: Order Comment: Name Collection Type:: Clean-Voided Midstream Result Comment: PERF ORMED BY: [place] [id number] PATHOLOGIST [employer]IC TROY SIGALA M.D. Performed By: #### A DDONUAPLUS #### [place] [address] [place] Ketones Ql (U) Negative Normal Negative [facility] Comment on above: Order Comment: Name Collection Type:: Clean-Voided Midstream Performed By: #### A DDONUAPLUS #### [place] [address] [place] Leukocyte esterase Test strip Ql (U) Negative Normal Negative [facility] Comment on above: Order Comment: Name Collection Type:: Clean-Voided Midstream Performed By: #### A DDONUAPLUS #### [place] [address] [place] Nitrite,Urine Negative Normal Negative [facility] Comment on above: Order Comment: Name Collection Type:: Clean-Voided Midstream Performed By: #### A DDONUAPLUS #### [place] [address] [place] Occult Blood,Urine Negative Normal Negative [facility] Comment on above: Order Comment: Name Collection Type:: Clean-Voided Midstream Result Comment: PERF ORMED BY: [place] [id number] PATHOLOGIST [employer] TROY SIGALA M.D. Performed By: #### A DDONUAPLUS #### [address] pH (U) 5.5 [pH] Normal 5.0-9.0 [facility] Comment on above: Order Comment: Name Collection Type:: Clean-Voided Midstream Performed By: #### A DDONUAPLUS #### [address] Protein,Urine Negative Normal Negative [facility] Comment on above: Order Comment: Name Collection Type:: Clean-Voided Midstream Performed By: #### A DDONUAPLUS #### [address] RBC LM.HPF (Urine sed) [#/Area] 0 /[HPF] Normal 0-4 [facility] Comment on above: Order Comment: Name Collection Type:: Clean-Voided Midstream Performed By: #### A DDONUAPLUS #### [address] Specificy Denio,Urine 1.014 Normal 1.001-1.030 [facility] Comment on above: Order Comment: Name Collection Type:: Clean-Voided Midstream Performed By: #### A DDONUAPLUS #### [address] Squamous Epithelial Cell,Urine None Seen Normal 0-2 [facility] Comment on above: Order Comment: Name Collection Type:: Clean-Voided Midstream Performed By: #### A DDONUAPLUS #### [address] Urobilinogen,Urine Normal Normal Normal [facility] Comment on above: Order Comment: Name Collection Type:: Clean-Voided Midstream Performed By: #### A DDONUAPLUS #### [address] WBC LM.HPF (Urine sed) [#/Area] 0 /[HPF] Normal 0-4 [facility] Comment on above: Order Comment: Name Collection Type:: Clean-Voided Midstream Performed By: #### A DDONUAPLUS #### [address] Lipaseon 04-09-2023 Lipase [Catalytic activity/Vol] 92.0 U/L High 11.0-82.0 [facility] Comment on above: Result Comment: PERF ORMED BY: [place] [id number] PATHOLOGIST [employer] TROY SIGALA M.D. Performed By: #### P TT, LIPASE, PT, CMP #### [address] Partial Thromboplastin Timeo n 04-09-2023 aPTT Coag (Bld) [Time] 30.9 s Normal 25.1-36.5 [facility] Comment on above: Result Comment: PERF ORMED BY: [place] [id number] PATHOLOGIST [employer]IC TROY SIGALA M.D. Performed By: #### P TT, LIPASE, PT, CMP #### [address] Prothrombin Time INRon 04-09 INR Coag (PPP) [Relative time] 1.0 {INR} Normal [facility] Comment on above: Result Comment: INR Therapeutic [...] #### P TT, LIPASE, PT, CMP #### [address] PT Coag (PPP) [Time] 11.9 s Normal 9.0-12.9 [facility] Comment on above: Performed By: #### P TT, LIPASE, PT, CMP #### [facility] [address] [place] [id number] [facility] CNOVon 08-15-2022 CNOV Office Visit (NEADFV ) SAMIR CASTILLO ([id number]) 1955 M Date Time Provider Department 08/15/22 4:00 PM EBONY KAUFMAN During your visit today, we recorded the following information about you: Pulse Blood pressure Weight Height 61/minute 148/78 89.8 kg 1.676 m Ebony Kaufman DO 08/15/2022 5:31 PM Signed [facility] for General Neurology Follow up/ Established patient visit Individuals who were included in, or assisted with the encounter were: Samir Castillo Ebony Kaufman DO Chief Complaint/Issues: Samir Castillo is a 67 year old male seen in the [facility] for General Neurology for: Follow-up Most Recent [...] tablet by (more content not included)... Normal [facility] CBC AUTO DIFFon 07-27-2022 BASO # 0.1 103/ul Normal 0.0-0.1 [facility] Comment on above: Performed By: #### C BC #### [facility] [address] [place] [address] [address] Hattie Newsome Basophils/100 WBC (Bld) 0.8 % Normal 0.2-2.0 [facility] Comment on above: Performed By: #### C BC #### [facility] [address] [place] [id number] Hattie Newsome EO # 0.3 103/ul Normal 0.0-0.7 [facility] Comment on above: Performed By: #### C BC #### [facility] [address] [place] [address] [address] Hattie Newsome Eosinophils/100 WBC (Bld) 3.2 % Normal 0.9-7.0 [facility] Comment on above: Performed By: #### C BC #### [facility] [address] [place] [address] Dr. Hattie Newsome Erythrocyte distribution width (RBC) [Ratio] 14.3 % Normal 11.0-15.0 [facility] Comment on above: Performed By: #### C BC #### [facility] [address] [place] [address] Dr. Hattie Newsome Hematocrit (Bld) [Volume fraction] 39.7 % Critically low 42.0-54.0 [facility] Comment on above: Performed By: #### C BC #### [facility] [address] [place] [address] Dr. Hattie Newsome Hemoglobin (Bld) [Mass/Vol] 13.0 g/dL Critically low 14.0-18.0 [facility] Comment on above: Performed By: #### C BC #### [facility] [address] [place] [address] Dr. Hattie Newsome IG # 0.06 10e3/ul Critically high 0.00-0.03 [facility] Comment on above: Performed By: #### C BC #### [facility] [address] [place] [address] Dr. Hattie Newsome IG % 0.8 % Critically high 0.0-0.5 [facility] Comment on above: Performed By: #### C BC #### [facility] [address] [place] [address] Dr. Hattie Newsome LYMPH # 1.3 103/ul Normal 1.2-3.8 [facility] Comment on above: Performed By: #### C BC #### [facility] [address] [place] [address] Dr. Hattie Newsome Lymphocytes/100 WBC (Bld) 16.8 % Critically low 20.5-60.0 [facility] Comment on above: Performed By: #### C BC #### [facility] [address] [place] [address] Dr. Hattie Newsome MANUAL DIFF REQ NO Normal [facility] Comment on above: Performed By: #### C BC #### [facility] [address] [place] [address] Dr. Hattie Newsome MCH (RBC) [Entitic mass] 30.5 pg Normal 25.9-34.0 [facility] Comment on above: Performed By: #### C BC #### [facility] [address] [place] [address] Dr. Hattie Newsome MCHC (RBC) [Mass/Vol] 32.7 g/dL Normal 29.9-35.2 [facility] Comment on above: Performed By: #### C BC #### [facility] [address] [place] [address] Dr. Hattie Newsome MCV (RBC) [Entitic vol] 93.2 fL Normal 80.0-94.0 [facility] Comment on above: Performed By: #### C BC #### [facility] [address] [place] [address] Dr. Hattie Newsome MONO # 0.5 103/ul Normal 0.3-0.8 [facility] Comment on above: Performed By: #### C BC #### [facility] [address] [place] [address] Dr. Hattie Newsome Monocytes/100 WBC (Bld) 7.0 % Normal 1.7-12.0 [facility] Comment on above: Performed By: #### C BC #### [facility] [address] [place] [address] Dr. Hattie Newsome NEUT # 5.5 103/ul Normal 1.4-6.5 [facility] Comment on above: Performed By: #### C BC #### [facility] [address] [place] [address] Dr. Hattie Newsome Neutrophils/100 WBC (Bld) 71.4 % Normal 43.0-75.0 [facility] Comment on above: Performed By: #### C BC #### [facility] [address] [place] [address] [address] Hattie Newsome Platelet mean volume (Bld) [Entitic vol] 9.4 fL Critically low 9.5-13.5 [facility] Comment on above: Performed By: #### C BC #### [facility] [address] [place] [address] [address] Hattie Newsome PLT 169 103/ul Normal 150-450 [facility] Comment on above: Performed By: #### C BC #### [facility] [address] [place] [address] [address] Hattie Newsome RBC 4.26 106/ul Critically low 4.70-6.10 [facility] Comment on above: Performed By: #### C BC #### [facility] [address] [place] [address] Dr. Hattie Newsome WBC 7.7 103/ul Normal 4.0-11.0 [facility] Comment on above: Performed By: #### C BC #### [facility] [address] [place] [address] Dr. Hattie Newsome LIPID PROFILEon 07-27-2022 CHOL-HDL RATIO NORM SEE BELOW Normal [facility] Comment on above: Result Comment: 3.3 - 4.4 LOW RISK 4.4 - 7.1 AVERAGE RISK 7.1 - 11.0 MODERATE RISK >11.0 HIGH RISK Performed By: #### L IPID #### [facility] [address] [place] [address] Dr. Hattie Newsome Cholesterol [Mass/Vol] 131 mg/dL Normal <=200 [facility] Comment on above: Performed By: #### L IPID #### [facility] [address] [place] [address] [address] Hattie Newsome Cholesterol in HDL [Mass/Vol] 40 mg/dL Normal 40-60 [facility] Comment on above: Performed By: #### L IPID #### [facility] [address] [place] [address] [address] Hattie [place] Cholesterol in LDL [Mass/Vol] 64.6 mg/dL Normal [facility] [facility] Comment on above: Performed By: #### L IPID #### [facility] [address] [address] [address] Hattie Newsome Cholesterol.total/ Cholesterol in HDL [Mass ratio] 3.3 {ratio} Normal [facility] Comment on above: Performed By: #### L IPID #### [facility] [address] [address] [address] Hattie Newsome HDL NORMAL > or = 60 mg/dl - LO W CARDIOVASCULAR RISK <40 mg/dl - HIGH CARDIOVASCULAR RISK Normal [facility] Comment on above: Performed By: #### L IPID #### [facility] [address] [place] [address] Dr. Hattie Newsome LDL CALC NORMAL SEE BELOW Normal [facility] Comment on above: Result Comment: <100 mg/dl OPTIMAL 100 - 129 mg/dl NEAR OR ABOVE OPTIMAL 130 - 159 mg/dl BORDERLINE HIGH 160 - 189 mg/dl HIGH >190 mg/dl VERY HIGH Performed By: #### L IPID #### [facility] [address] [place] [address] Dr. Hattie Newsome Triglyceride [Mass/Vol] 132 mg/dL Normal <=150 [facility] Comment on above: Performed By: #### L IPID #### [facility] [address] [place] [address] Dr. Hattie Newsome VLDL CALC 26.4 mg/dL Normal [facility] Comment on above: Performed By: #### L IPID #### [facility] [address] [place] [address] Dr. Hattie Newsome PARATHYROID HORMONE- RELATED PEPTIDEon 07-15-2022 PTHrP (PTH-Related Peptide) <2.0 Normal [facility] Comment on above: Result Comment: This test was developed and its performance characteristics determined by [employer]. It has not been cleared or approved [...] By: #### P THP #### [facility] [address] [place] [address] Dr. Hattie Newsome CBC AUTO DIFFon 07-07-2022 BASO # 0.1 103/ul Normal 0.0-0.1 [facility] Comment on above: Performed By: #### U BLANCA, CMP, MG #### [facility] [address] [place] [address] Dr. Hattie Newsome Basophils/100 WBC (Bld) 0.9 % Normal 0.2-2.0 [facility] Comment on above: Performed By: #### U BLANCA, CMP, MG #### [facility] [address] [place] [address] Dr. Hattie Newsome EO # 0.2 103/ul Normal 0.0-0.7 [facility] Comment on above: Performed By: #### U BLANCA, CMP, MG #### [facility] [address] [place] [address] Dr. Hattie Newsome Eosinophils/100 WBC (Bld) 3.4 % Normal 0.9-7.0 [facility] Comment on above: Performed By: #### U BLANCA, CMP, MG #### [facility] [address] [place] [address] Dr. Hattie Newsome Erythrocyte distribution width (RBC) [Ratio] 14.5 % Normal 11.0-15.0 [facility] Comment on above: Performed By: #### U BLANCA, CMP, MG #### [facility] [address] [place] [address] Dr. Hattie Newsome Hematocrit (Bld) [Volume fraction] 40.1 % Critically low 42.0-54.0 [facility] Comment on above: Performed By: #### U BLANCA, CMP, MG #### [facility] [address] [place] [address] Dr. Hattie Newsome Hemoglobin (Bld) [Mass/Vol] 13.6 g/dL Critically low 14.0-18.0 [facility] Comment on above: Performed By: #### U BLANCA, CMP, MG #### [facility] [address] [address] [address] Hattie Newsome IG # 0.04 10e3/ul Critically high 0.00-0.03 [facility] Comment on above: Performed By: #### U BLANCA, CMP, MG #### [facility] [address] [address] [address] Hattie Newsome IG % 0.6 % Critically high 0.0-0.5 [facility] Comment on above: Performed By: #### U BLANCA, CMP, MG #### [facility] [address] [address] [address] Hattie Newsome LYMPH # 0.9 103/ul Critically low 1.2-3.8 [facility] Comment on above: Performed By: #### U BLANCA, CMP, MG #### [facility] [address] [place] [address] Dr. Hattie Newsome Lymphocytes/100 WBC (Bld) 13.1 % Critically low 20.5-60.0 [facility] Comment on above: Performed By: #### U BLANCA, CMP, MG #### [facility] [address] [address] [address] Hattie Newsome MANUAL DIFF REQ NO Normal [facility] Comment on above: Performed By: #### U BLANCA, CMP, MG #### [facility] [address] [place] [address] Dr. Hattie Newsome MCH (RBC) [Entitic mass] 30.9 pg Normal 25.9-34.0 [facility] Comment on above: Performed By: #### U BLANCA, CMP, MG #### [facility] [address] [address] [address] Hattie Newsome MCHC (RBC) [Mass/Vol] 33.9 g/dL Normal 29.9-35.2 [facility] Comment on above: Performed By: #### U BLANCA, CMP, MG #### [facility] [address] [address] [address] Hattie Newsome MCV (RBC) [Entitic vol] 91.1 fL Normal 80.0-94.0 [facility] Comment on above: Performed By: #### U BLANCA, CMP, MG #### [facility] [address] [address] [address] Hattie Newsome MONO # 0.3 103/ul Normal 0.3-0.8 [facility] Comment on above: Performed By: #### U BLANCA, CMP, MG #### [facility] [address] [address] [address] Hattie Newsome Monocytes/100 WBC (Bld) 5.1 % Normal 1.7-12.0 [facility] Comment on above: Performed By: #### U BLANCA, CMP, MG #### [facility] [address] [place] [address] Dr. Hattie Newsome NEUT # 5.0 103/ul Normal 1.4-6.5 [facility] Comment on above: Performed By: #### U BLANCA, CMP, MG #### [facility] [address] [place] [address] Dr. Hattie Newsome Neutrophils/100 WBC (Bld) 76.9 % Critically high 43.0-75.0 [facility] Comment on above: Performed By: #### U BLANCA, CMP, MG #### [facility] [address] [place] [address] Dr. Hattie Newsome Platelet mean volume (Bld) [Entitic vol] 9.0 fL Critically low 9.5-13.5 [facility] Comment on above: Performed By: #### U BLANCA, CMP, MG #### [facility] [address] [place] [address] Dr. Hattie Newsome PLT 160 103/ul Normal 150-450 [facility] Comment on above: Performed By: #### U BLANCA, CMP, MG #### [facility] [address] [place] [address] Dr. Hattie Newsome RBC 4.40 106/ul Critically low 4.70-6.10 [facility] Comment on above: Performed By: #### U BLANCA, CMP, MG #### [facility] [address] [place] [address] Dr. Hattie Newsome WBC 6.5 103/ul Normal 4.0-11.0 [facility] Comment on above: Performed By: #### U BLANCA, CMP, MG #### [facility] [address] [address] [address] Hattie Newsome MAGNESIUMon 07-07-2022 Magnesium [Mass/Vol] 1.8 mg/dL Normal 1.8-2.4 [facility] Comment on above: Performed By: #### U BLANCA, CMP, MG #### [facility] [address] [address] [address] Hattie Newsome PROF 14(COMP METB)on 022 Albumin [Mass/Vol] 3.9 g/dL Normal 3.4-5.0 [facility] Comment on above: Performed By: #### U BLANCA, CMP, MG #### [facility] [address] [place] [address] Dr. Hattie Newsome Albumin/Globulin [Mass ratio] 1.0 {ratio} Normal [facility] Comment on above: Performed By: #### U BLANCA, CMP, MG #### [facility] [address] [address] [address] Hattie Newsome ALP [Catalytic activity/Vol] 136 U/L Critically high 46-116 [facility] Comment on above: Performed By: #### U BLANCA, CMP, MG #### [facility] [address] [address] [address] Hattie Newsome ALT [Catalytic activity/Vol] 122 U/L Critically high 16-63 [facility] Comment on above: Performed By: #### U BLANCA, CMP, MG #### [facility] [address] [address] [address] Hattie Newsome Anion gap [Moles/Vol] 12.4 mmol/L Normal [facility] Comment on above: Performed By: #### U BLANCA, CMP, MG #### [facility] [address] [address] [address] Hattie Newsome AST [Catalytic activity/Vol] 72 U/L Critically high 15-37 [facility] Comment on above: Performed By: #### U BLANCA, CMP, MG #### [facility] [address] [place] [address] Dr. Hattie Newsome Bilirubin [Mass/Vol] 0.5 mg/dL Normal 0.2-1.0 [facility] Comment on above: Performed By: #### U BLANCA, CMP, MG #### [facility] [address] [place] [address] Dr. Hattie Newsome Calcium [Mass/Vol] 9.1 mg/dL Normal 8.5-10.1 [facility] Comment on above: Performed By: #### U BLANCA, CMP, MG #### [facility] [address] [place] [address] Dr. Hattie Newsome Chloride [Moles/Vol] 106 mmol/L Normal 98-107 [facility] Comment on above: Performed By: #### U BLANCA, CMP, MG #### [facility] [address] [place] [address] Dr. Hattie Newsome CO2 [Moles/Vol] 25.9 mmol/L Normal 21.0-32.0 [facility] Comment on above: Performed By: #### U BLANCA, CMP, MG #### [facility] [address] [place] [address] Dr. Hattie Newsome Creatinine [Mass/Vol] 1.54 mg/dL Critically high 0.70-1.30 [facility] Comment on above: Performed By: #### U BLANCA, CMP, MG #### [facility] [address] [place] [address] Dr. Hattie Newsome EGFR-AF TOGOLESE 55 mL/min/1.73m2 Critically low >=60 [facility] Comment on above: Performed By: #### U BLANCA, CMP, MG #### [facility] [address] [place] [address] Dr. Hattie Newsome EGFR-NON AF TOGOLESE 45 mL/min/1.73m2 Critically low >=60 [facility] Comment on above: Performed By: #### U BLANCA, CMP, MG #### [facility] [address] [place] [address] Dr. Hattie Newsome Globulin (S) [Mass/Vol] 4.0 g/dL Normal [facility] Comment on above: Performed By: #### U BLANCA, CMP, MG #### [facility] [address] [place] [address] Dr. Hattie Newsome Glucose [Mass/Vol] 104 mg/dL Normal 74-106 [facility] Comment on above: Performed By: #### U BLANCA, CMP, MG #### [facility] [address] [place] [address] Dr. Hattie Newsome Potassium [Moles/Vol] 4.3 mmol/L Normal 3.5-5.1 [facility] Comment on above: Performed By: #### U BLANCA, CMP, MG #### [facility] [address] [place] [address] Dr. Hattie Newsome Protein [Mass/Vol] 7.9 g/dL Normal 6.4-8.2 [facility] Comment on above: Performed By: #### U BLANCA, CMP, MG #### [facility] [address] [place] [address] Dr. Hattie Newsome Sodium [Moles/Vol] 140 mmol/L Normal 136-145 [facility] Comment on above: Performed By: #### U BLANCA, CMP, MG #### [facility] [address] [place] [address] Dr. Hattie Newsome Urea nitrogen [Mass/Vol] 14.0 mg/dL Normal 7.0-18.0 [facility] Comment on above: Performed By: #### U BLANCA, CMP, MG #### [facility] [address] [place] [address] Dr. Hattie Newsome Urea nitrogen/Creatinin e [Mass ratio] 9.1 mg/mg Normal [facility] Comment on above: Performed By: #### U BLANCA, CMP, MG #### [facility] [address] [place] [address] Dr. Hattie Newsome UA RANDOMon 07-07-2022 Bilirubin Ql (U) Negative Normal NEGATIVE [facility] Comment on above: Performed By: #### U A #### [facility] [address] [place] [address] Dr. Hattie Newsome Clarity (U) CLEAR Normal CLEAR [facility] Comment on above: Performed By: #### U A #### [facility] [address] [place] [address] Dr. Hattie Newsome Color (U) YELLOW Normal YELLOW [facility] Comment on above: Performed By: #### U A #### [facility] [address] [place] [address] Dr. Hattie Newsome Glucose Ql (U) Negative Normal NEGATIVE [facility] Comment on above: Performed By: #### U A #### [facility] [address] [place] [address] Dr. Hattie Newsome Hemoglobin Ql (U) Negative Normal NEGATIVE [facility] Comment on above: Performed By: #### U A #### [facility] [address] [place] [address] Dr. Hattie Newsome Ketones Ql (U) Negative Normal NEGATIVE [facility] Comment on above: Performed By: #### U A #### [facility] [address] [place] [address] Dr. Hattie Newsome LEUKOCYTES Negative Normal NEGATIVE [facility] Comment on above: Performed By: #### U A #### [facility] [address] [place] [address] Dr. Hattie Newsome Nitrite Ql (U) Negative Normal NEGATIVE [facility] Comment on above: Performed By: #### U A #### [facility] [address] [place] [address] Dr. Hattie Newsome pH (U) 5.5 [pH] Normal 5-9 [facility] Comment on above: Performed By: #### U A #### [facility] [address] [place] [address] Dr. Hattie Newsome SPEC GRAVITY >=1.030 Abnormal 1.005-<=1.025 [facility] Comment on above: Performed By: #### U A #### [facility] [address] [place] [address] Dr. Hattie Newsome UA PROTEIN Negative Normal NEGATIVE/ TRACE [facility] Comment on above: Performed By: #### U A #### [facility] [address] [address] [address] Hattie Newsome Urobilinogen Qn (U) 1.0 {Xavier'U}/dL Normal 0.2 - 1.0 [facility] Comment on above: Performed By: #### U A #### [facility] [address] [place] [address] Dr. Hattie Newsome URIC ACID SERUMon 07-07-2022 Urate [Mass/Vol] 6.8 mg/dL Normal 3.5-7.2 [facility] Comment on above: Performed By: #### U BLANCA, CMP, MG #### [facility] [address] [place] [address] Dr. Hattie Newsome URINE T PROTEIN CREAT RATIOo n 07-07-2022 Protein (U) [Mass/Vol] 27.5 mg/dL Critically high <=12.0 [facility] Comment on above: Performed By: #### U RTPCR #### [facility] [address] [place] [address] Dr. Hattie Newsome UR PROT CREAT RAT 0.15 Normal [facility] Comment on above: Performed By: #### U RTPCR #### [facility] [address] [place] [address] Dr. Hattie Newsome URINE CREAT 187.29 mg/dL Normal 20.00-300.00 [facility] Comment on above: Performed By: #### U RTPCR #### [facility] [address] [place] [address] Dr. Hattie Newsome VITAMIN D 25 OHon 07-07-2022 VIT D 25-OH 81.5 ng/mL Normal [facility] Comment on above: Performed By: #### V ITAD #### [facility] [address] [place] [address] Dr. Hattie Newsome VIT D RANGES SEE BELOW Normal [facility] Comment on above: Result Comment: <20 ng/mL Vit D deficient 20 - <30 ng/mL Vit D insufficient 30 - 100 ng/mL Vit D sufficient >100 ng/mL Potential Toxicity Performed By: #### V ITAD #### [facility] [address] [place] [address] Dr. 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 - omega 2-ajb-mvp-fish oil (FISH OIL) 100-160-1,000 mg cap Take by mouth. - methylPREDNISolone (MEDROL, TEAGAN,) 4 mg Dose-Pack Take as instructed Problem List As Of Date 05/01/2022 Noted Resolved Dyspnea and respiratory abnormalities [R06.00, *02/09/2022 Recurrent major depression in partial remission*04/12/2022 MCI (mild cognitive impairment) [G31.84] 04/12/2022 Encounter Status:Closed by MALINDA BARRAGAN on 05/01/22 [facility] CNOVon 04-10-2022 CNOV Office Visit (NEADFV ) SAMIR CASTILLO ([id number]) 1955 M Date Time Provider Department 04/10/22 10:00 AM EBONY KAUFMAN NEADFV During your visit today, we recorded the following information about you: Pulse Blood pressure Weight Height 57/minute 146/69 89.7 kg 1.651 m Ebony Kaufman DO 04/12/2022 12:26 AM Signed [facility] for General Neurology New Patient Evaluation Consulting Provider: Jessie Lay [id number] [facility] [address] Individuals who were included in, or assisted with the encounter were: Samir Castillo Ebony Kaufman DO Chief Complaint/Issues: Samir Castillo is a 66 year old male seen in the [facility] for General Neurology for: Memory HPI: Here [...] notices problems with both short term and usp memory Language: yes, word finding problems. Knows [...] 1 TABLET (more content not included)... 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 Brain MRI (02/08/2022) noted severe generalized volume [...] interest in transferring his psychiatric care to [facility]. The patient reported being sober since [...] stroke, and seizure. CURRENT MEDICATIONS, PER RECORDS (EC TEACHER-relevant medications in bold): Medication albuterol HFA (PROVENTIL [...] Multivitamins-Minerals -Lutein (MULTIVITAMIN 50 PLUS) tab omega 6-lwn-yro-fish oil (FISH OIL) 100-160-1,000 mg cap methylPREDNISolone (MEDROL, TEAGAN,) 4 mg Dose-Pack FAMILY HISTORY: patient reported (more content not included)... Normal [facility] ECHOCARDIO M/2D COMPLETEon 0 02-21-2022 ECHOCARDIO M/2D COMPLETE Patient: KEL CASTILLO Exam Date: 02/21/2022 : 1955 Gender:M Ordering : DR SARAH TOLLIVER M.D. Admission #: [id number] Family : Order #: [id number] CLICK HERE TO VIEW EXAM ECHOCARDIOGRAM REPORT [...] Yepez M.D. on 02/21/2022 at 16:31 Normal [facility] CNOVon 02-09-2022 CNOV Office Visit (PMNA11 ) CASTILLOSAMIR FISCHER ([id number]) 1955 M Date Time Provider Department 02/09/22 11:15 AM PRINCE ABY PMNA11 During your visit today, we recorded the following information about you: Temperature Pulse Respiration Blood pressure 97.5 degrees 65/minute 18/minute 135/64 Weight Height 89.9 kg 1.651 m Marisol Davis MD 02/15/2022 1:05 PM Signed Mr. Castillo is a 66 year old male who presents to the [facility] [place]. Consultation requested for an opinion regarding SOB. 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 omega 4-lqh-yil-fish oil (FISH OIL) 100-160-1,000 mg cap Take by mouth. methylPREDNISolone (MEDROL, TEAGAN,) 4 mg Dose-Pack Take as instructed PHYSICAL EXAM: Physical Exam On room air, able to complete sentences, no LE extremity edema No cervical or axillary LAD Chest: Air entry reduced in the lung bases, no wheeze (more content not included)... Normal [facility] MRI 3D POST PROCESSINGon MRI 3D [...] dementia protocol and 3-D post-processing using the R2G software at an independent workstation with concurrent [...] = Focal Lesions 2 = Beginning of [place] 3 = Diffuse Involvement of Entire Region [...] results from the analysis charts for details. Prepleater: PSCB Transcribe Date/Time: Feb 08 2022 4:54P Dictated by : TINO AUGUSTE MD This examination was interpreted and the report reviewed and electronically signed by: TINO AUGUSTE MD on Feb 08 2022 5:41PM EST [id number] Normal [facility] MRI BRAIN WO IVCONon 022 MRI [...] dementia protocol and 3-D post-processing using the R2G software at an independent workstation with concurrent [...] = Focal Lesions 2 = Beginning of [place] 3 = Diffuse Involvement of Entire Region [...] results from the analysis charts for details. Prepleater: TERRENCE Transcribe Date/Time: Feb 08 2022 4:54P Dictated by : TINO AUGUSTE MD This examination was interpreted and the report reviewed and electronically signed by: TINO AUGUSTE MD on Feb 08 2022 5:41PM EST [id number] Normal [facility] No Panel Informationon 02-08 [facility] CNOVon 12-22-2021 CNOV Office Visit (NEADFV ) SAMIR CASTILLO ([id number]) 1955 M Date Time Provider Department 12/22/21 9:00 AM JESSIE LAY During your visit today, we recorded the following information about you: Pulse Blood pressure Weight Height 59/minute 153/70 87.7 kg 1.651 m Jessie Lay MD 12/22/2021 10:51 AM Signed [facility] for General Neurology New Patient Evaluation Consulting Provider: SELF Individuals who were included in, or assisted with the encounter were: ? Samir Castillo ? Jessie Lay MD Chief Complaint/Issues: Samir Castillo is a 66 year old male seen in the [facility] for General Neurology for: 1. Memory loss. [...] notices problems with both short term and usp memory Language: yes, word finding problems. Knows [...] BY MOUTH (more content not included)... Normal [facility] 12-21-2021 [facility] Telephone (NIQ) SAMIR CASTILLO ([id number]) 1955 M Date Time Provider Department 12/21/21 UNKNOWN NIQ During your visit today, we recorded the following information about you: Luna Sandoval 12/21/2021 11:49 AM Signed [facility] referral from Dr. Milo Hurtado, [place], [place] DX: increasing amnesia not explained as part of depression and anxiety RFV: Evaluate and treat Scheduling: Patient accepted consult with Dr. Jessie Lay on 12/22/2021 External records will be uploaded to chart in Scanned Docs. Allergies As of Date: 12/21/2021 (Not on File) Date Reviewed: Never Reviewed Reason for Visit: Received Outside Medical Records [[id number]] Cmt: External referral to Brain Health Problem List As Of Date: 12/21/2021 (None) Encounter Status:Closed by LUNA SANDOVAL on 12/21/21 Normal [facility] BASIC METABOLIC PANELon 02-2 Calcium [Mass/Vol] 9.2 mg/dL Normal 8.6-10.3 [facility] Comment on above: Order Comment: No: D o not add to previous draw Performed By: #### 0 0071, 87570 #### [facility] [address] [place] [address], [place] Chloride [Moles/Vol] 108 mmol/L High 98-107 [facility] Comment on above: Order Comment: No: D o not add to previous draw Performed By: #### 0 0071, 49722 #### [facility] [address] [place] [address], [place] CO2 [Moles/Vol] 26 mmol/L Normal 21-31 [facility] Comment on above: Order Comment: No: D o not add to previous draw Performed By: #### 0 0071, 17570 #### [facility] [address] [place] [address], [facility] Creatinine [Mass/Vol] 1.64 mg/dL High 0.70-1.[address] [facility] Comment on above: Order Comment: No: D o not add to previous draw Performed By: #### 0 0071, 95592 #### [facility] [address] [place] [address], [place] GFR/1.73 sq M predicted among blacks MDRD (S/P/Bld) [Vol rate/Area] 51 ml/min/1.73sq m Abnormal >60 [facility] Comment on above: Order Comment: No: D o not add to previous draw Performed By: #### 0 0071, 93402 #### [facility] [address] [place] [address], [place] GFR/1.73 sq M predicted among non-blacks MDRD (S/P/Bld) [Vol rate/Area] 42 ml/min/1.73sq m Abnormal >60 [facility] Comment on above: Order Comment: No: D o not add to previous draw Performed By: #### 0 0071, 43304 #### [facility] [address] [place] [address], [facility] Glucose [Mass/Vol] 100 mg/dL Normal 70-100 [facility] Comment on above: Order Comment: No: D o not add to previous draw Performed By: #### 0 0071, 60123 #### [facility] [address] [place] [address], [facility] Potassium [Moles/Vol] 4.5 mmol/L Normal 3.5-5.1 [facility] Comment on above: Order Comment: No: D o not add to previous draw Performed By: #### 0 0071, 37943 #### [facility] [address] [place] [address], [facility] Sodium [Moles/Vol] 139 mmol/L Normal 136-145 [facility] Comment on above: Order Comment: No: D o not add to previous draw Performed By: #### 0 0071, 26925 #### [facility] [address] [place] [address], [facility] Urea nitrogen [Mass/Vol] 15 mg/dL Normal 7-25 [facility] Comment on above: Order Comment: No: D o not add to previous draw Performed By: #### 0 0071, 97490 #### [facility] [address] [place] [id number], [facility] CBC W/DIFFon 10-08-2019 ABS BASOPHILS 0.1 10*3/uL Normal 0.0-0.2 The [facility] Comment on above: Order Comment: No: D o not add to previous draw Performed By: #### 0 0071, 77525 #### [facility] [address] [address] [place] [id number], [facility] ABS IMM GRANS 0.1 10*3/uL Normal 0.0-0.2 The [facility] Comment on above: Order Comment: No: D o not add to previous draw Performed By: #### 0 0071, 81295 #### [facility] [address] [place] [address], [facility] ABS NEUTROPHILS 5.1 10*3/uL Normal 1.6-7.6 The [facility] Comment on above: Order Comment: No: D o not add to previous draw Performed By: #### 0 0071, 37844 #### [facility] [address] [place] [address], [facility] Basophils/100 WBC (Bld) 0.8 % Normal 0.0-1.0 [facility] Comment on above: Order Comment: No: D o not add to previous draw Performed By: #### 0 0071, 02780 #### [facility] [address] [place] [address], [facility] Eosinophils (Bld) [#/Vol] 0.3 10*3/uL Normal 0.0-0.5 [facility] Comment on above: Order Comment: No: D o not add to previous draw Performed By: #### 0 0071, 21708 #### [facility] [address] [place] [address], [facility] Eosinophils/100 WBC (Bld) 3.9 % Normal 0.0-6.0 [facility] Comment on above: Order Comment: No: D o not add to previous draw Performed By: #### 0 0071, 71708 #### [facility] [address] [place] [id number], [facility] Erythrocyte distribution width (RBC) [Ratio] 14.3 % Normal 11.5-15.0 [facility] Comment on above: Order Comment: No: D o not add to previous draw Performed By: #### 0 0071, 43485 #### [facility] [address] [place] [id number], [facility] Hematocrit (Bld) [Volume fraction] 39.0 % Normal 39.0-50.0 [facility] Comment on above: Order Comment: No: D o not add to previous draw Performed By: #### 0 0071, 52440 #### [facility] [address] [place] [address], [facility] Hemoglobin (Bld) [Mass/Vol] 12.3 g/dL Low 13.0-17.0 [facility] Comment on above: Order Comment: No: D o not add to previous draw Performed By: #### 0 0071, 79976 #### [facility] [address] [place] [address], [facility] IMMATURE GRANS 0.8 % Normal 0.0-1.0 The [facility] Comment on above: Order Comment: No: D o not add to previous draw Performed By: #### 0 0071, 62418 #### [facility] [address] [place] [address], [facility] Lymphocytes (Bld) [#/Vol] 1.2 10*3/uL Normal 1.2-4.0 [facility] Comment on above: Order Comment: No: D o not add to previous draw Performed By: #### 0 0071, 35741 #### [facility] [address] [place] [address], [facility] Lymphocytes/100 WBC (Bld) 16.1 % Low 20.0-45.0 [facility] Comment on above: Order Comment: No: D o not add to previous draw Performed By: #### 0 0071, 04120 #### [facility] [address] [place] [address], [facility] MCH (RBC) [Entitic mass] 29.9 pg Normal 27.0-33.0 [facility] Comment on above: Order Comment: No: D o not add to previous draw Performed By: #### 0 0071, 27038 #### [facility] [address] [place] [address], [facility] MCHC (RBC) [Mass/Vol] 31.5 g/dL Low 32.0-35.0 [facility] Comment on above: Order Comment: No: D o not add to previous draw Performed By: #### 0 0071, 95416 #### [facility] [address] [address], [facility] MCV (RBC) [Entitic vol] 94.9 fL Normal 82.0-98.0 [facility] Comment on above: Order Comment: No: D o not add to previous draw Performed By: #### 0 0071, 33689 #### [facility] [address] [place] [address], [facility] Monocytes (Bld) [#/Vol] 0.5 10*3/uL Normal 0.1-1.0 [facility] Comment on above: Order Comment: No: D o not add to previous draw Performed By: #### 0 0071, 28978 #### [facility] [address] [place] [address], [facility] MONOS 6.3 % Normal 5.0-12.0 [facility] Comment on above: Order Comment: No: D o not add to previous draw Performed By: #### 0 0071, 54593 #### [facility] [address] [place] [address], [facility] Neutrophils/100 WBC (Bld) 72.1 % High 40.0-72.0 [facility] Comment on above: Order Comment: No: D o not add to previous draw Performed By: #### 0 0071, 03449 #### [facility] [address] [place] [address], [facility] Nucleated RBC/100 WBC (Bld) [Ratio] 0 % Normal 0-0 [facility] Comment on above: Order Comment: No: D o not add to previous draw Performed By: #### 0 0071, 74589 #### [facility] [address] [place] [address], [facility] PLAT CNT 168 10*3/uL Normal 150-400 [facility] Comment on above: Order Comment: No: D o not add to previous draw Performed By: #### 0 0071, 36937 #### [facility] [address] [place] [address], [facility] RBC (Bld) [#/Vol] 4.11 10*6/uL Low 4.20-5.70 The [facility] Comment on above: Order Comment: No: D o not add to previous draw Performed By: #### 0 0071, 21984 #### [facility] [address] [place] [address], [facility] WBC (Bld) [#/Vol] 7.13 10*3/uL Normal 4.00-10.60 [facility] Comment on above: Order Comment: No: D o not add to previous draw Performed By: #### 0 0071, 95993 #### [facility] [address] US ABDOMEN LIMITEDon 020 US ABDOMEN LIMITED [facility] Department of Radiology [address] [place] [id number] ======== Patient Name: KEL CASTILLO : 1955 Sex: M Age: Race: White Pt. Location: [id number] Patient Status: I Ordered Date: 10/08/2019 9:30:00 [...] collection. Electronically signed: Brandy Wilson. Transcribed by: [email or web address], User Resident: BRANDY WILSON Electronically Signed by: BRANDY WILSON @ 10/08/2019 10:13 AM I personally read this/these film(s) with this resident Normal [facility] Comment on above: Order Comment: No: D o not add to previous draw BASIC METABOLIC PANELon 09-13 Calcium [Mass/Vol] 8.7 mg/dL Normal 8.6-10.3 [facility] Comment on above: Order Comment: No: D o not add to previous draw Performed By: #### 0 0071, 67940 #### [facility] [address] [place] [address], [place] Chloride [Moles/Vol] 111 mmol/L High 98-107 [facility] Comment on above: Order Comment: No: D o not add to previous draw Performed By: #### 0 0071, 65493 #### [facility] [address] [place] [address], [place] CO2 [Moles/Vol] 28 mmol/L Normal 21-31 [facility] Comment on above: Order Comment: No: D o not add to previous draw Performed By: #### 0 0071, 56388 #### [facility] [address] [place] [address], [facility] Creatinine [Mass/Vol] 1.59 mg/dL High 0.70-1.[address] [facility] Comment on above: Order Comment: No: D o not add to previous draw Performed By: #### 0 0071, 37514 #### [facility] [address] [place] [address], [place] GFR/1.73 sq M predicted among blacks MDRD (S/P/Bld) [Vol rate/Area] 53 ml/min/1.73sq m Abnormal >60 [facility] Comment on above: Order Comment: No: D o not add to previous draw Performed By: #### 0 0071, 83502 #### [facility] [address] [place] [address], [place] GFR/1.73 sq M predicted among non-blacks MDRD (S/P/Bld) [Vol rate/Area] 44 ml/min/1.73sq m Abnormal >60 [facility] Comment on above: Order Comment: No: D o not add to previous draw Performed By: #### 0 0071, 15223 #### [facility] [address] [place] [address], [place] Glucose [Mass/Vol] 99 mg/dL Normal 70-100 [facility] Comment on above: Order Comment: No: D o not add to previous draw Performed By: #### 0 0071, 57972 #### [facility] [address] [place] [address], [place] Potassium [Moles/Vol] 4.2 mmol/L Normal 3.5-5.[address] [facility] Comment on above: Order Comment: No: D o not add to previous draw Performed By: #### 0 0071, 69785 #### [facility] [address] [place] [address], [facility] Sodium [Moles/Vol] 142 mmol/L Normal 136-145 [facility] Comment on above: Order Comment: No: D o not add to previous draw Performed By: #### 0 0071, 61997 #### [facility] [address] [place] [address], [facility] Urea nitrogen [Mass/Vol] 16 mg/dL Normal 7-25 [facility] Comment on above: Order Comment: No: D o not add to previous draw Performed By: #### 0 0071, 01392 #### [facility] [address] [place], [place] [address] [place] [address] Cardiovascular Lab Reporton 10-07-2019 Cardiovascular Lab Report [facility] Patient Name: Jose [facility] Kel MR #: [id number] Department of Physician: Shaji Juarez M.D. Division of Service Date: 10/07/2019 Cardiology Birthdate: 1955 Adult Cardiovascular Room #: [id number] [facility] [address] [place] [address] Cardiovascular Laboratory Report FINAL IMPRESSIONS: 1. Severe 3-vessel choctaw coronary artery disease. 2. A 2/3 bypass [...] on the anatomic and fluoroscopic landmarks. A 6-Fijian 11 cm sheath was inserted. Limited femoral [...] Tolliver M.D. Date Trans: 10/07/2019 02:55 P/mmo [id number] cc: Priyank Hendrickson M.D. [address] [place] [address] Nayana Bledsoe D. [address] [place] [address] Normal [facility] MAGNESIUM BLOODon 10-07-2019 Magnesium [Mass/Vol] 2.1 mg/dL Normal 1.9-2.7 [facility] Comment on above: Order Comment: No: D o not add to previous draw Performed By: #### 0 2901, 99738 #### [facility] [address] [place] [address], [facility] BASIC METABOLIC PANELon 09-13 Calcium [Mass/Vol] 8.7 mg/dL Normal 8.6-10.3 [facility] Comment on above: Order Comment: No: D o not add to previous draw Performed By: #### 0 8181, 94672 #### [facility] [address] [place] [address], [place] Chloride [Moles/Vol] 110 mmol/L High 98-107 [facility] Comment on above: Order Comment: No: D o not add to previous draw Performed By: #### 0 0071, 96589 #### [facility] [address] [place] [address], [place] CO2 [Moles/Vol] 26 mmol/L Normal 21-31 [facility] Comment on above: Order Comment: No: D o not add to previous draw Performed By: #### 0 0071, 17511 #### [facility] [address] [place] [address], [place] Creatinine [Mass/Vol] 1.92 mg/dL High 0.70-1.[address] [facility] Comment on above: Order Comment: No: D o not add to previous draw Performed By: #### 0 0071, 48128 #### [facility] [address] [place] [address], [place] GFR/1.73 sq M predicted among blacks MDRD (S/P/Bld) [Vol rate/Area] 43 ml/min/1.73sq m Abnormal >60 [facility] Comment on above: Order Comment: No: D o not add to previous draw Performed By: #### 0 0071, 03072 #### [facility] [address] [place] [address], [place] GFR/1.73 sq M predicted among non-blacks MDRD (S/P/Bld) [Vol rate/Area] 35 ml/min/1.73sq m Abnormal >60 [facility] Comment on above: Order Comment: No: D o not add to previous draw Performed By: #### 0 0071, 78681 #### [facility] [address] [place] [address], [place] Glucose [Mass/Vol] 96 mg/dL Normal 70-100 [facility] Comment on above: Order Comment: No: D o not add to previous draw Performed By: #### 0 0071, 87693 #### [facility] [address] [place] [address], [place] Potassium [Moles/Vol] 4.4 mmol/L Normal 3.5-5.1 [facility] Comment on above: Order Comment: No: D o not add to previous draw Performed By: #### 0 0071, 91252 #### [facility] [address] [place] [address], [place] Sodium [Moles/Vol] 140 mmol/L Normal 136-145 [facility] Comment on above: Order Comment: No: D o not add to previous draw Performed By: #### 0 0071, 36141 #### [facility] [address] [place] [address], [place] Urea nitrogen [Mass/Vol] 25 mg/dL Normal 7-25 [facility] Comment on above: Order Comment: No: D o not add to previous draw Performed By: #### 0 0071, 42544 #### [facility] [address] [place] [address], [place] Calcium [Mass/Vol] 8.8 mg/dL Normal 8.6-10.3 [facility] Comment on above: Order Comment: No: D o not add to previous draw Performed By: #### 0 0071 #### [facility] [address] [place] [address], [place] Chloride [Moles/Vol] 111 mmol/L High 98-107 [facility] Comment on above: Order Comment: No: D o not add to previous draw Performed By: #### 0 0071 #### [facility] [address] [place] [address], [place] CO2 [Moles/Vol] 25 mmol/L Normal 21-31 [facility] Comment on above: Order Comment: No: D o not add to previous draw Performed By: #### 0 0071 #### [facility] [address] [place] [address], [place] Creatinine [Mass/Vol] 1.94 mg/dL High 0.70-1.30 [facility] Comment on above: Order Comment: No: D o not add to previous draw Performed By: #### 0 0071 #### [facility] [address] [place] [address], [place] GFR/1.73 sq M predicted among blacks MDRD (S/P/Bld) [Vol rate/Area] 42 ml/min/1.73sq m Abnormal >60 [facility] Comment on above: Order Comment: No: D o not add to previous draw Performed By: #### 0 0071 #### [facility] [address] [place] [address], [place] GFR/1.73 sq M predicted among non-blacks MDRD (S/P/Bld) [Vol rate/Area] 35 ml/min/1.73sq m Abnormal >60 [facility] Comment on above: Order Comment: No: D o not add to previous draw Performed By: #### 0 0071 #### [facility] [address] [place] [address], [place] Glucose [Mass/Vol] 102 mg/dL High 70-100 [facility] Comment on above: Order Comment: No: D o not add to previous draw Performed By: #### 0 0071 #### [facility] [address] [place] [address], [place] Potassium [Moles/Vol] 4.5 mmol/L Normal 3.5-5.1 [facility] Comment on above: Order Comment: No: D o not add to previous draw Performed By: #### 0 0071 #### [facility] [address] [place] [address], [place] Sodium [Moles/Vol] 140 mmol/L Normal 136-145 [facility] Comment on above: Order Comment: No: D o not add to previous draw Performed By: #### 0 0071 #### [facility] [address] [facility] [address], [facility] Urea nitrogen [Mass/Vol] 27 mg/dL High 7-25 [facility] Comment on above: Order Comment: No: D o not add to previous draw Performed By: #### 0 0071 #### [facility] [address] [place] [address], [facility] CBC W/DIFFon 10-06-2019 ABS BASOPHILS 0.1 10*3/uL Normal 0.0-0.2 The [facility] Comment on above: Order Comment: No: D o not add to previous draw Performed By: #### 5 0103 #### [facility] [address] ABS IMM GRANS 0.1 10*3/uL Normal 0.0-0.2 [facility] Comment on above: Order Comment: No: D o not add to previous draw Performed By: #### 5 3 #### [facility] [address] [place] [address], [facility] ABS NEUTROPHILS 4.2 10*3/uL Normal 1.6-7.6 [facility] Comment on above: Order Comment: No: D o not add to previous draw Performed By: #### 5 0103 #### [facility] [address] [place] [address], [facility] Basophils/100 WBC (Bld) 0.9 % Normal 0.0-1.0 [facility] Comment on above: Order Comment: No: D o not add to previous draw Performed By: #### 5 0103 #### [facility] [address] [place] [address], [facility] Eosinophils (Bld) [#/Vol] 0.3 10*3/uL Normal 0.0-0.5 [facility] Comment on above: Order Comment: No: D o not add to previous draw Performed By: #### 5 0103 #### [facility] [address] [place] [address], [facility] Eosinophils/100 WBC (Bld) 4.8 % Normal 0.0-6.0 [facility] Comment on above: Order Comment: No: D o not add to previous draw Performed By: #### 5 0103 #### [facility] [address] [place] [address], [facility] Erythrocyte distribution width (RBC) [Ratio] 14.3 % Normal 11.5-15.0 [facility] Comment on above: Order Comment: No: D o not add to previous draw Performed By: #### 5 0103 #### [facility] [address] [place] [address], [facility] Hematocrit (Bld) [Volume fraction] 37.3 % Low 39.0-50.0 [facility] Comment on above: Order Comment: No: D o not add to previous draw Performed By: #### 5 0103 #### [facility] [address] [place] [address], [facility] Hemoglobin (Bld) [Mass/Vol] 11.7 g/dL Low 13.0-17.0 [facility] Comment on above: Order Comment: No: D o not add to previous draw Performed By: #### 5 0103 #### [facility] [address] [place] [address], [facility] IMMATURE GRANS 1.3 % High 0.0-1.0 [facility] Comment on above: Order Comment: No: D o not add to previous draw Performed By: #### 5 0103 #### [facility] [address] [place] [address], [facility] Lymphocytes (Bld) [#/Vol] 1.5 10*3/uL Normal 1.2-4.0 [facility] Comment on above: Order Comment: No: D o not add to previous draw Performed By: #### 5 0103 #### [facility] [address] [place] [address], [facility] Lymphocytes/100 WBC (Bld) 21.8 % Normal 20.0-45.0 [facility] Comment on above: Order Comment: No: D o not add to previous draw Performed By: #### 5 0103 #### [facility] [address] [place] [address], [facility] MCH (RBC) [Entitic mass] 29.5 pg Normal 27.0-33.0 [facility] Comment on above: Order Comment: No: D o not add to previous draw Performed By: #### 5 0103 #### [facility] [address] MCHC (RBC) [Mass/Vol] 31.4 g/dL Low 32.0-35.0 The [facility] Comment on above: Order Comment: No: D o not add to previous draw Performed By: #### 5 0103 #### [facility] [address] [place] [address], [facility] MCV (RBC) [Entitic vol] 94.0 fL Normal 82.0-98.0 [facility] Comment on above: Order Comment: No: D o not add to previous draw Performed By: #### 5 0103 #### [facility] [address] [place] [address], [facility] Monocytes (Bld) [#/Vol] 0.6 10*3/uL Normal 0.1-1.0 [facility] Comment on above: Order Comment: No: D o not add to previous draw Performed By: #### 5 0103 #### [facility] [address] [place] [address], [facility] MONOS 8.2 % Normal 5.0-12.0 [facility] Comment on above: Order Comment: No: D o not add to previous draw Performed By: #### 5 0103 #### [facility] [address] [place] [address], [facility] Neutrophils/100 WBC (Bld) 63.0 % Normal 40.0-72.0 [facility] Comment on above: Order Comment: No: D o not add to previous draw Performed By: #### 5 0103 #### [facility] [address] [place] [address], [facility] Nucleated RBC/100 WBC (Bld) [Ratio] 0 % Normal 0-0 [facility] Comment on above: Order Comment: No: D o not add to previous draw Performed By: #### 5 0103 #### [facility] [address] [place] [id number], [facility] PLAT CNT 162 10*3/uL Normal 150-400 The [facility] Comment on above: Order Comment: No: D o not add to previous draw Performed By: #### 5 0103 #### [facility] [address] [place] [id number], [facility] RBC (Bld) [#/Vol] 3.97 10*6/uL Low 4.20-5.70 The [facility] Comment on above: Order Comment: No: D o not add to previous draw Performed By: #### 5 0103 #### [facility] [address] [place] [id number], [facility] WBC (Bld) [#/Vol] 6.69 10*3/uL Normal 4.00-10.60 The [facility] Comment on above: Order Comment: No: D o not add to previous draw Performed By: #### 5 0103 #### [facility] [address] [place] [id number], [facility] BASIC METABOLIC PANELon 02-2 Calcium [Mass/Vol] 9.7 mg/dL Normal 8.6-10.3 The [facility] Comment on above: Order Comment: No: D o not add to previous draw Performed By: #### 0 0071, 67220 #### [facility] [address] [place] [address], [place] Chloride [Moles/Vol] 105 mmol/L Normal 98-107 [facility] Comment on above: Order Comment: No: D o not add to previous draw Performed By: #### 0 0071, 52838 #### [facility] [address] [place] [address], [place] CO2 [Moles/Vol] 25 mmol/L Normal 21-31 The [facility] Comment on above: Order Comment: No: D o not add to previous draw Performed By: #### 0 0071, 16252 #### [facility] [address] [place] [address], [place] Creatinine [Mass/Vol] 2.13 mg/dL High 0.70-1.30 [facility] Comment on above: Order Comment: No: D o not add to previous draw Performed By: #### 0 0071, 05696 #### [facility] [address] [place] [address], [place] GFR/1.73 sq M predicted among blacks MDRD (S/P/Bld) [Vol rate/Area] 38 ml/min/1.73sq m Abnormal >60 The [facility] Comment on above: Order Comment: No: D o not add to previous draw Performed By: #### 0 0071, 45801 #### [facility] [address] [place] [address], [place] GFR/1.73 sq M predicted among non-blacks MDRD (S/P/Bld) [Vol rate/Area] 31 ml/min/1.73sq m Abnormal >60 The [facility] Comment on above: Order Comment: No: D o not add to previous draw Performed By: #### 0 0071, 07296 #### [facility] [address] [place] [address], [facility] Glucose [Mass/Vol] 114 mg/dL High 70-100 [facility] Comment on above: Order Comment: No: D o not add to previous draw Performed By: #### 0 0071, 64694 #### [facility] [address] [place] [id number], [facility] Potassium [Moles/Vol] 4.7 mmol/L Normal 3.5-5.1 The [facility] Comment on above: Order Comment: No: D o not add to previous draw Performed By: #### 0 0071, 49805 #### [facility] [address] [place] [address], [facility] Sodium [Moles/Vol] 140 mmol/L Normal 136-145 The [facility] Comment on above: Order Comment: No: D o not add to previous draw Performed By: #### 0 0071, 95119 #### [facility] [address] [place] [address], [facility] Urea nitrogen [Mass/Vol] 32 mg/dL High 7-25 [facility] Comment on above: Order Comment: No: D o not add to previous draw Performed By: #### 0 0071, 21572 #### [facility] [address] [place] [address], [facility] CBC W/DIFFon 10-05-2019 ABS BASOPHILS 0.1 10*3/uL Normal 0.0-0.2 The [facility] Comment on above: Performed By: #### 5 0103 #### [facility] [address] [place] [address], [facility] ABS IMM GRANS 0.1 10*3/uL Normal 0.0-0.2 The [facility] Comment on above: Performed By: #### 5 0103 #### [facility] [address] [place] [address], [facility] ABS NEUTROPHILS 6.2 10*3/uL Normal 1.6-7.6 The [facility] Comment on above: Performed By: #### 5 0103 #### [facility] [address] [place] [address], [facility] Basophils/100 WBC (Bld) 0.7 % Normal 0.0-1.0 The [facility] Comment on above: Performed By: #### 5 0103 #### [facility] [address] [place] [address], [facility] Eosinophils (Bld) [#/Vol] 0.3 10*3/uL Normal 0.0-0.5 [facility] Comment on above: Performed By: #### 5 0103 #### [facility] [address] [place] [address], [facility] Eosinophils/100 WBC (Bld) 4.0 % Normal 0.0-6.0 [facility] Comment on above: Performed By: #### 5 0103 #### [facility] [address] [place] [address], [facility] Erythrocyte distribution width (RBC) [Ratio] 14.4 % Normal 11.5-15.0 [facility] Comment on above: Performed By: #### 5 0103 #### [facility] [address] [place] [address], [facility] Hematocrit (Bld) [Volume fraction] 39.3 % Normal 39.0-50.0 [facility] Comment on above: Performed By: #### 5 0103 #### [facility] [address] [place] [address], [facility] Hemoglobin (Bld) [Mass/Vol] 12.7 g/dL Low 13.0-17.0 [facility] Comment on above: Performed By: #### 5 0103 #### [facility] [address] [place] [address], [facility] IMMATURE GRANS 0.8 % Normal 0.0-1.0 [facility] Comment on above: Performed By: #### 5 0103 #### [facility] [address] [address], [facility] Lymphocytes (Bld) [#/Vol] 1.4 10*3/uL Normal 1.2-4.0 [facility] Comment on above: Performed By: #### 5 0103 #### [facility] [address] [place] [address], [facility] Lymphocytes/100 WBC (Bld) 16.6 % Low 20.0-45.0 [facility] Comment on above: Performed By: #### 5 0103 #### [facility] [address] [place] [address], [facility] MCH (RBC) [Entitic mass] 30.3 pg Normal 27.0-33.0 [facility] Comment on above: Performed By: #### 5 3 #### [facility] [address] MCHC (RBC) [Mass/Vol] 32.3 g/dL Normal 32.0-35.0 [facility] Comment on above: Performed By: #### 5 3 #### [facility] [address] [place] [address], [facility] MCV (RBC) [Entitic vol] 93.8 fL Normal 82.0-98.0 [facility] Comment on above: Performed By: #### 5 3 #### [facility] [address] [place] [address], [facility] Monocytes (Bld) [#/Vol] 0.4 10*3/uL Normal 0.1-1.0 [facility] Comment on above: Performed By: #### 5 3 #### [facility] [address] [place] [address], [facility] MONOS 4.9 % Low 5.0-12.0 [facility] Comment on above: Performed By: #### 5 0103 #### [facility] [address] [place] [id number], [facility] Neutrophils/100 WBC (Bld) 73.0 % High 40.0-72.0 [facility] Comment on above: Performed By: #### 5 0103 #### [facility] [address] [place] [address], [facility] Nucleated RBC/100 WBC (Bld) [Ratio] 0 % Normal 0-0 [facility] Comment on above: Performed By: #### 5 0103 #### [facility] [address] [place] [id number], [facility] PLAT CNT 205 10*3/uL Normal 150-400 The [facility] Comment on above: Performed By: #### 5 0103 #### [facility] [address] [place] [address], [facility] RBC (Bld) [#/Vol] 4.19 10*6/uL Low 4.20-5.70 The [facility] Comment on above: Performed By: #### 5 0103 #### [facility] [address] [place] [id number], [facility] WBC (Bld) [#/Vol] 8.53 10*3/uL Normal 4.00-10.60 The [facility] Comment on above: Performed By: #### 5 0103 #### [facility] [address] [place] [address], [facility] CREATININE URINE RANDOMon Creatinine [Mass/Vol] 62.0 mg/dL Normal The [facility] Comment on above: Order Comment: No: D o not add to previous draw Result Comment: Ther e are no established reference values for random urine specimens Performed By: #### 2 5706, 97617, 84167 #### [facility] [address] [place] [id number], [facility] LIVER BATTERYon 10-05-2019 Albumin [Mass/Vol] 4.6 g/dL Normal 3.5-5.7 [facility] Comment on above: Order Comment: Yes: Add to Previous draw if able Performed By: #### 0 0071, 03886 #### [facility] [address] [place] [address], [place] ALKALINE PHOSPH 56 IU/L Normal 34-104 The [facility] Comment on above: Order Comment: Yes: Add to Previous draw if able Performed By: #### 0 0071, 07933 #### [facility] [address] [place] [address], [place] ALT [Catalytic activity/Vol] 26 U/L Normal 7-52 [facility] Comment on above: Order Comment: Yes: Add to Previous draw if able Performed By: #### 0 0071, 41453 #### [facility] [address] [place] [address], [place] AST [Catalytic activity/Vol] 25 U/L Normal 13-39 [facility] Comment on above: Order Comment: Yes: Add to Previous draw if able Performed By: #### 0 0071, 14985 #### [facility] [address] [place] [address], [place] Bilirubin [Mass/Vol] 0.5 mg/dL Normal 0.3-1.0 [facility] Comment on above: Order Comment: Yes: Add to Previous draw if able Performed By: #### 0 0071, 03032 #### [facility] [address] [place] [address], [place] Bilirubin.direct [Mass/Vol] 0.1 mg/dL Normal 0.0-0.2 [facility] Comment on above: Order Comment: Yes: Add to Previous draw if able Performed By: #### 0 0071, 09346 #### [facility] [address] [place] [address], [place] Protein [Mass/Vol] 7.6 g/dL Normal 6.0-8.3 The [facility] Comment on above: Order Comment: Yes: Add to Previous draw if able Performed By: #### 0 0071, 22293 #### [facility] [address] [place] [address], [place] SODIUM URINE RANDOMon 2019 Sodium (U) [Moles/Vol] 111 mmol/L Normal The [facility] Comment on above: Order Comment: No: D o not add to previous draw Result Comment: Ther e are no established reference values for random urine specimens Performed By: #### 2 5706, 03368, 06530 #### [facility] [address] [place] [address], [place] UA,MICROSCOPIC REQUIREDon Appearance (U) CLEAR Normal CLEAR The [facility] Comment on above: Order Comment: No: D o not add to previous draw Performed By: #### 9 0150 #### [facility] [address] [place] [address], [place] Bilirubin [Mass/Vol] Negative Normal NEGATIVE The [facility] Comment on above: Order Comment: No: D o not add to previous draw Performed By: #### 9 0150 #### [facility] [address] [place] [address], [place] BLOOD Negative Normal NEGATIVE The [facility] Comment on above: Order Comment: No: D o not add to previous draw Performed By: #### 9 0150 #### [facility] [address] [place] [address], [place] Color (U) YELLOW Normal YELLOW The [facility] Comment on above: Order Comment: No: D o not add to previous draw Performed By: #### 9 0150 #### [facility] [address] [place] [address], [place] EPIS OCC Normal FEW,OCC,NONE SEEN [facility] Comment on above: Order Comment: No: D o not add to previous draw Performed By: #### 9 0150 #### [facility] [address] [place] [address], [facility] Glucose [Mass/Vol] Negative Normal NEGATIVE The [facility] Comment on above: Order Comment: No: D o not add to previous draw Performed By: #### 9 0150 #### [facility] [address] [place] [address], [place] HYALINE CASTS 1 /LPF Abnormal NONE SEEN The [facility] Comment on above: Order Comment: No: D o not add to previous draw Performed By: #### 9 0150 #### [facility] [address] [place] [address], [facility] KETONE Negative Normal NEGATIVE [facility] Comment on above: Order Comment: No: D o not add to previous draw Performed By: #### 9 0150 #### [facility] [address] [place] [address], [facility] LEUK BURAK Negative Normal NEGATIVE [facility] Comment on above: Order Comment: No: D o not add to previous draw Performed By: #### 9 0150 #### [facility] [address] [place] [address], [place] Nitrite Ql (U) Negative Normal NEGATIVE The [facility] Comment on above: Order Comment: No: D o not add to previous draw Performed By: #### 9 0150 #### [facility] [address] [place] [address], [place] pH (Bld) 6.0 Normal 5.0-8.0 [facility] Comment on above: Order Comment: No: D o not add to previous draw Performed By: #### 9 0150 #### [facility] [address] [place] [address], [place] Protein [Mass/Vol] Negative Normal NEGATIVE The [facility] Comment on above: Order Comment: No: D o not add to previous draw Performed By: #### 9 0150 #### [facility] [address] [place] [address], [facility] RBC (Bld) [#/Vol] 0-2 Abnormal NONE SEEN The [facility] Comment on above: Order Comment: No: D o not add to previous draw Performed By: #### 9 0150 #### [facility] [address] [place] [address], [facility] SPEC GRAV 1.012 Low 1.015-1.020 The [facility] Comment on above: Order Comment: No: D o not add to previous draw Performed By: #### 9 0150 #### [facility] [address] [place] [address], [facility] WBC UA 0-2 Abnormal NONE SEEN [facility] Comment on above: Order Comment: No: D o not add to previous draw Performed By: #### 9 0150 #### [facility] [address] [place] [address], [facility] UREA NITROGEN URon 0 Urea nitrogen [Mass/Vol] 566 mg/dL Normal The [facility] Comment on above: Order Comment: No: D o not add to previous draw Result Comment: Ther e are no established reference values for random urine specimens Performed By: #### 2 5706, 73147, 03893 #### [id number] [place] [address] US RENALon 10-05-2019 US RENAL [facility] Department of Radiology [address] [place] [id number] ======== Patient Name: KEL CASTILLO : 1955 Sex: M Age: Race: White Pt. Location: [id number] Patient Status: I Ordered Date: 10/05/2019 10:45:00 [...] hydronephrosis. Electronically signed: Robinson Castellanos. Transcribed by: [id number], User Resident: Electronically Signed by: ROBINSON CASTELLANOS @ 10/05/2019 03:41 PM Normal [facility] Comment on above: Order Comment: [place] nephrosis Vital Signs Date Time Vital Sign Value Performing Clinician Facility 09-19-2023 13:53-0500 Body height 172.7 cm Shaikh Cornelio LEMON Work Phone: [facility] 09-19-2023 13:53-0500 Body mass index (BMI) [Ratio] 28.43 kg/m2 Shaikh Cornelio LEMON Work Phone: [facility] 09-19-2023 13:53-0500 Body temperature 97.5 [degF] Shaikh Cornelio LEMON Work Phone: [facility] 09-19-2023 13:53-0500 Body weight 84.82 kg Shaikh Cornelio LEMON Work Phone: [facility] 09-19-2023 13:53-0500 Diastolic blood pressure 60 mm[Hg] Shaikh Cornelio LEMON Work Phone: [facility] 09-19-2023 13:53-0500 Heart rate 59 /min Shaikh Cornelio LEMON Work Phone: [facility] 09-19-2023 13:53-0500 SaO2% (BldA) [Mass fraction] 95 % Shaikh Cornelio LEMON Work Phone: [facility] 09-19-2023 13:53-0500 Systolic blood pressure 118 mm[Hg] Shaikh Cornelio LEMON Work Phone: [facility] 01-25-2023 10:00-0400 Body height 167.64 cm Serusbarbara [employer] Other [employer] Other 01-25-2023 10:00-0400 Body mass index (BMI) [Ratio] 31.57 kg/m2 Serusbarbara [employer] Other [employer] Other 01-25-2023 10:00-0400 Body temperature 96.2 [degF] Serusbarbara [employer] Other [employer] Other 01-25-2023 10:00-0400 Body weight 88.72 kg Serusbarbara [employer] Other [employer] Other 01-25-2023 10:00-0400 Diastolic blood pressure 76 mm[Hg] Serusbarbara [employer] Other [employer] Other 01-25-2023 10:00-0400 Respiratory rate 20 /min Serusbarbara [employer] Other [employer] Other 01-25-2023 10:00-0400 SaO2% (BldA) [Mass fraction] 98 % Lisseth Edmondss Other [employer] Other 01-25-2023 10:00-0400 Systolic blood pressure 147 mm[Hg] Lisseth Edmondss Other [employer] Other 08-15-2022 15:40-0500 Body height 167.6 cm Ebony Mandeep DO Work Phone: [facility] 08-15-2022 15:40-0500 Body weight 89.81 kg Ebony Mandeep DO Work Phone: [facility] 08-15-2022 15:40-0500 Diastolic blood pressure 78 mm[Hg] Ebony Mandeep DO Work Phone: [facility] 08-15-2022 15:40-0500 Heart rate 61 /min Ebony Mandeep DO Work Phone: [facility] 08-15-2022 15:40-0500 SaO2% (BldA) [Mass fraction] 100 % Ebony Mandeep DO Work Phone: [facility] 08-15-2022 15:40-0500 Systolic blood pressure 148 mm[Hg] Ebony Mandeep DO Work Phone: [facility] 07-10-2022 14:40-0500 Body height 167.64 cm Lisseth Edmondss Other [employer] Other 07-10-2022 14:40-0500 Body mass index (BMI) [Ratio] 31.95 kg/m2 Lisseth Edmondss Other [employer] Other 07-10-2022 14:40-0500 Body weight 89.81 kg Lisseth Edmondss Other [employer] Other 07-10-2022 14:40-0500 Diastolic blood pressure 70 mm[Hg] Lisseth Toscano Other [employer] Other 07-10-2022 14:40-0500 SaO2% (BldA) [Mass fraction] 95 % Lisseth Toscano Other [employer] Other 07-10-2022 14:40-0500 Systolic blood pressure 128 mm[Hg] Lisseth Toscano Other [employer] Other 06-05-2022 16:30-0400 Body height 167.64 cm Corona Casesoila Other [employer] Other 06-05-2022 16:30-0400 Body mass index (BMI) [Ratio] 32.12 kg/m2 Corona Casesoila Other [employer] Other 06-05-2022 16:30-0400 Body temperature 96.5 [degF] Corona Casesoila Other [employer] Other 06-05-2022 16:30-0400 Body weight 90.27 kg Corona Casesoila Other [employer] Other 06-05-2022 16:30-0400 Diastolic blood pressure 82 mm[Hg] Corona Casesoila Other [employer] Other 06-05-2022 16:30-0400 Respiratory rate 20 /min Corona Casesoila Other [employer] Other 06-05-2022 16:30-0400 SaO2% (BldA) [Mass fraction] 96 % Wallacekaren Monroe Other [employer] Other 06-05-2022 16:30-0400 Systolic blood pressure 140 mm[Hg] Wallacekaren Monroe Other [employer] Other 04-10-2022 09:44-0400 Body height 165.1 cm Ebony Mandeep DO Work Phone: [facility] 04-10-2022 09:44-0400 Body weight 89.68 kg Ebony Mandeep DO Work Phone: [facility] 04-10-2022 09:44-0400 Diastolic blood pressure 69 mm[Hg] Ebony Mandeep DO Work Phone: [facility] 04-10-2022 09:44-0400 Heart rate 57 /min Ebony Mandeep DO Work Phone: [facility] 04-10-2022 09:44-0400 Systolic blood pressure 146 mm[Hg] Ebony Mandeep DO Work Phone: [facility] 02-27-2022 15:30-0400 Body height 167.64 cm Wallacekaren Monroe Other [employer] Other 02-27-2022 15:30-0400 Body mass index (BMI) [Ratio] 31.95 kg/m2 Wallacekaren Monroe Other [employer] Other 02-27-2022 15:30-0400 Body temperature 96.9 [degF] Corona Monroe Other [employer] Other 02-27-2022 15:30-0400 Body weight 89.81 kg Corona Monroe Other [employer] Other 02-27-2022 15:30-0400 Diastolic blood pressure 76 mm[Hg] Kamal Chaban Other [employer] Other 02-27-2022 15:30-0400 Respiratory rate 20 /min Corona Caseban Other [employer] Other 02-27-2022 15:30-0400 SaO2% (BldA) [Mass fraction] 97 % Corona Caseban Other [employer] Other 02-27-2022 15:30-0400 Systolic blood pressure 142 mm[Hg] Wallaceal Chaban Other [employer] Other 01-29-2022 12:00-0400 Body height 167.64 cm Cristo Suazo Other [employer] Other 01-29-2022 12:00-0400 Body mass index (BMI) [Ratio] 32.84 kg/m2 Cristo Suazo Other [employer] Other 01-29-2022 12:00-0400 Body weight 92.31 kg Cristo Suazo Other [employer] Other 01-29-2022 12:00-0400 Diastolic blood pressure 78 mm[Hg] Cristo Suazo Other [employer] Other 01-29-2022 12:00-0400 Respiratory rate 18 /min Cristo Lambahan Other [employer] Other 01-29-2022 12:00-0400 SaO2% (BldA) [Mass fraction] 98 % Cristo Lambahan Other [employer] Other 01-29-2022 12:00-0400 Systolic blood pressure 142 mm[Hg] Cristo Suazo Other [employer] Other 12-26-2021 17:00-0400 Body height 167.64 cm Cristo Suazo Other [employer] Other 12-26-2021 17:00-0400 Body mass index (BMI) [Ratio] 31.15 kg/m2 Cristo Suazo Other [employer] Other 12-26-2021 17:00-0400 Body weight 87.54 kg Cristo Suazo Other [employer] Other 12-26-2021 17:00-0400 Diastolic blood pressure 79 mm[Hg] Cristo Suazo Other [employer] Other 12-26-2021 17:00-0400 Respiratory rate 18 /min Cristo Suazo Other [employer] Other 12-26-2021 17:00-0400 SaO2% (BldA) [Mass fraction] 95 % Cristo Suazo Other [employer] Other 12-26-2021 17:00-0400 Systolic blood pressure 161 mm[Hg] Cristo Suazo Other [employer] Other 12-22-2021 08:25-0400 Body height 165.1 cm Jessie Lay MD Work Phone: [facility] 12-22-2021 08:25-0400 Body weight 87.68 kg Jessie Lay MD Work Phone: [facility] 12-22-2021 08:25-0400 Diastolic blood pressure 70 mm[Hg] Jessie Lay MD Work Phone: [facility] 12-22-2021 08:25-0400 Heart rate 59 /min Jessie Lay MD Work Phone: [facility] 12-22-2021 08:25-0400 Systolic blood pressure 153 mm[Hg] Jessie Lay MD Work Phone: [facility] 05-23-2021 15:40-0400 Body height 167.64 cm Reuben Mccrarymckenzie Other [employer] Other 05-23-2021 15:40-0400 Body mass index (BMI) [Ratio] 30.84 kg/m2 Reuben Triana Other [employer] Other 05-23-2021 15:40-0400 Body temperature 96.3 [degF] Reuben Mccrarymckenzie Other [employer] Other 05-23-2021 15:40-0400 Body weight 86.68 kg Reuben Triana Other [employer] Other 05-23-2021 15:40-0400 Diastolic blood pressure 62 mm[Hg] Reuben Triana Other [employer] Other 05-23-2021 15:40-0400 Respiratory rate 18 /min Reuben Mccrarymckenzie Other [employer] Other 05-23-2021 15:40-0400 SaO2% (BldA) [Mass fraction] 94 % Reuben Triana Other [employer] Other 05-23-2021 15:40-0400 Systolic blood pressure 140 mm[Hg] Reuben Mccrarymckenzie Other [employer] Other Encounters Encounter Date Encounter Type Care Provider Facility Start: 09-19-2023 End: 09-19-2023 ambulatory SHAIKH CORNELIO Not Available Start: 09-19-2023 End: 09-19-2023 Office outpatient visit 25 minutes Shaikh Cornelio LEMON Work Phone: [facility] Comment on above: 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, subsequent encounter (Primary Dx); Recurrent major 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) ([facility]); Other hyperlipidemia ([facility]); EDITH (generalized anxiety disorder) ([facility]); CKD (chronic kidney disease) stage 4, GFR 15-29 ml/min ([facility]); Gastroesophageal reflux disease without esophagitis; Coronary artery disease involving choctaw coronary artery 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 pectoris ([facility]); Primary hypertension ([facility]); Chronic obstructive pulmonary disease, unspecified COPD type ([facility]) Start: 04-09-2023 End: 04-09-2023 Emergency department patient visit NON STAFF Facility:[facility] Start: 04-09-2023 End: 04-09-2023 ambulatory Aziz Bakhous Other [employer] Other Start: 04-09-2023 Telephone encounter Lisseth Bakusamas [facility] Start: 01-25-2023 End: 01-25-2023 ambulatory Aziz Bakhous Other [employer] Other Start: 01-25-2023 Office outpatient vi sit 25 minutes Aziz Bakhous [facility] Start: 08-15-2022 End: 08-15-2022 ambulatory EBONY KAUFMAN Facility:[facility] Start: 08-15-2022 End: 08-15-2022 Patient encounter procedure Ebony Kaufman DO Work Phone: Neurology Comment on above: MCI (mild cognitive impairment) (Primary Dx) Start: 07-27-2022 End: 07-28-2022 ambulatory SHAIKH Randolph GRIMES Facility: Start: 07-10-2022 End: 07-10-2022 ambulatory Aziz Bakhous Other [employer] Other Start: 07-10-2022 Office outpatient vi sit 15 minutes Lisseth Toscano [facility] Start: 07-07-2022 End: 07-08-2022 ambulatory AZBARBARA EDMONDSS Facility:[facility] Start: 07-03-2022 End: 07-03-2022 ambulatory Corona Monroe Facility:[facility] Start: 06-26-2022 End: 06-26-2022 ambulatory Nadira Choi Other [employer] Other Start: 06-26-2022 Telephone encounter Nadira Choi [facility] Start: 06-05-2022 End: 06-05-2022 ambulatory Corona Monroe Other [employer] Other Start: 06-05-2022 Office outpatient vi sit 25 minutes Corona Monroe [facility] Start: 05-29-2022 End: 05-29-2022 ambulatory Thomas Hurtado Other [employer] Other Start: 05-29-2022 Telephone encounter Thomas Hurtado [facility] Start: 05-01-2022 Telephone encounter Malinda garcia [facility] Comment on above: Mercury Cell Cleaner - O ther (In response to order placed in [facility]) Start: 04-11-2022 End: 04-11-2022 Patient encounter procedure MD Corona Monroe Work Phone: [facility] Start: 04-10-2022 End: 04-10-2022 ambulatory EBONY KAUFMAN Facility:[facility] Start: 04-10-2022 End: 04-10-2022 Patient encounter procedure Ebony Kaufman DO Work Phone: Neurology Comment on above: 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) (Primary Dx); MCI (mild cognitive impairment) Start: 03-13-2022 End: 03-13-2022 ambulatory Thomas Genesis Other [employer] Other Start: 03-13-2022 Telephone encounter Thomas Hurtado [facility] Start: 03-05-2022 End: 03-05-2022 ambulatory Thomas Hurtado Other [employer] Other Start: 03-05-2022 Telephone encounter Thomas Hurtado [facility] Start: 02-28-2022 End: 02-28-2022 ambulatory Corona Monroe Other [employer] Other Start: 02-28-2022 Telephone encounter Corona Monroe [facility] Start: 02-27-2022 End: 02-27-2022 ambulatory Corona Monroe Other [employer] Other Start: 02-27-2022 Office outpatient ne w 45 minutes Corona Monroe [facility] Start: 02-21-2022 Telephone encounter Cristo [facility] [place] Start: 02-21-2022 End: 02-22-2022 ambulatory MEDINA Randolph CORNELIO [employer] Other Start: 02-09-2022 End: 02-09-2022 ambulatory [facility] Other Phone: Pulmonary Medicine Comment on above: Spirometry Question regarding M RI BRAIN WO IVCON Start: 02-09-2022 End: 02-09-2022 Patient encounter procedure [facility] Other Phone: [facility] Start: 02-08-2022 End: 02-08-2022 Orders Only Driss Nur MD Work Phone: [facility] Comment on above: Cognitive impairment , mild, so stated (Primary Dx) Shortness of breath (Primary Dx) Cognitive impairment , mild, so stated [G31.84] Start: 02-08-2022 Telephone encounter Thomas Hurtado [facility] Start: 01-29-2022 End: 01-29-2022 ambulatory Cristo Suazo Other [employer] Other Start: 01-29-2022 Office outpatient vi sit 15 minutes Cristo Suazo [facility] [place] Start: 01-05-2022 End: 01-05-2022 ambulatory Cristo Suazo Other [employer] Other Start: 01-05-2022 Telephone encounter Cristo [facility] [place] Start: 01-01-2022 End: 01-01-2022 ambulatory Cristo Suazo Other [employer] Other Start: 01-01-2022 Telephone encounter Cristo [facility]ender [facility] [place] Start: 12-26-2021 End: 12-26-2021 ambulatory Cristo Suazo Other [employer] Other Start: 12-26-2021 Office outpatient vi sit 25 minutes Cristo Suazo [facility] Start: 12-22-2021 End: 12-22-2021 ambulatory JESSIE LAY Facility:[facility] Start: 12-22-2021 End: 12-22-2021 Patient encounter procedure Jessie Lay MD Work Phone: Neurology Comment on above: 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); Cognitive impairment, mild, so stated; Depression, unspecified depression type Start: 12-18-2021 End: 12-18-2021 ambulatory Thomas Genesis Other [employer] Other Start: 12-18-2021 Telephone encounter Thomas Genesis [facility] Start: 12-06-2021 End: 12-06-2021 ambulatory Thomas Genesis Other [employer] Other Start: 12-06-2021 Telephone encounter Thomas Genesis [facility] Start: 12-04-2021 End: 12-04-2021 ambulatory Cristo Suazo Other [employer] Other Start: 12-04-2021 Telephone encounter Cristo [facility] Start: 09-13-2021 End: 09-13-2021 ambulatory Thomas Hurtado Other [employer] Other Start: 09-13-2021 Telephone encounter Thomas Jha [facility] Start: 08-16-2021 End: 08-16-2021 ambulatory Cristo Suazo Other [employer] Other Start: 08-16-2021 Telephone encounter Cristo [facility] Start: 05-30-2021 Telephone encounter Cristo [facility] Start: 05-23-2021 Office outpatient vi sit 25 minutes Reuben Triana [facility] Start: 05-23-2021 Telephone encounter Susannah salazar [facility] Start: 04-03-2018 End: 04-04-2018 Patient encounter [facility] [place] Start: 03-28-2018 End: 03-29-2018 Patient encounter [facility] [place] [place] Procedures Date Procedure Procedure Detail Performing [...] Screening for malign ant neoplasm of colon [facility] Start: 12-24-2023 End: 12-24-2023 Patient encounter procedure 12/24/2023 1:15 PM EDT Office Visit [facility] [address] [place] [address] Shaikh Grimes MD [address] [place] [address] [facility] Start: 09-19-2023 End: 09-19-2024 CBC W Auto Differential panel - Blood CBC and differential Lab Routine Recurrent major 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) (CMS/HCC) CKD (chronic kidney disease) stage 4, GFR 15-29 ml/min (CMS/HCC) Coronary artery disease involving choctaw coronary artery 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 pectoris (CMS/HCC) Primary hypertension (CMS/HCC) Expected: 09/19/2023 (Approximate), Expires: 09/19/2024 [facility] Work Phone: Comment on above: Expected: 09/19/2023 (Approximate), Expires: 09/19/2024 Start: 09-19-2023 End: 09-19-2024 Comprehensive metabolic 2000 panel - Serum or Plasma Comprehensive metabolic panel Lab Routine Recurrent major 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) (CMS/HCC) CKD (chronic kidney disease) stage 4, GFR 15-29 ml/min (CMS/HCC) Coronary artery disease involving choctaw coronary artery 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 pectoris (CMS/HCC) Primary hypertension (CMS/HCC) Expected: 09/19/2023 (Approximate), Expires: 09/19/2024 [facility] Comment on above: Expected: 09/19/2023 (Approximate), Expires: 09/19/2024 Start: 09-19-2023 End: 09-19-2024 Creatinine [Mass/volume] in Urine Creatinine, urine, random Lab Routine CKD (chronic kidney disease) stage 4, GFR 15-29 ml/min (CMS/HCC) Expected: 09/19/2023 (Approximate), Expires: 09/19/2024 [facility] Comment on above: Expected: 09/19/2023 (Approximate), Expires: 09/19/2024 Start: 09-19-2023 End: 09-19-2024 Lipid 1996 panel - Serum or Plasma Lipid panel Lab Routine Other hyperlipidemia ([facility]) Expected: 09/19/2023 (Approximate), Expires: 09/19/2024 [facility] Comment on above: Expected: 09/19/2023 (Approximate), Expires: 09/19/2024 Start: 09-19-2023 End: 09-19-2024 Protein, urine, random Protein, urine, random Lab Routine CKD (chronic kidney disease) stage 4, GFR 15-29 ml/min ([facility]) Expected: 09/19/2023 (Approximate), Expires: 09/19/2024 [facility] Comment on above: Expected: 09/19/2023 (Approximate), Expires: 09/19/2024 Start: 04-12-2023 Influenza vaccination Influenza Vacc ine (#1) [facility] Start: 12-22-2022 Adult depression screening assessment DEPRESSION SCREENING [facility] Start: 08-12-2022 ADVANCE DIRECTIVE DISCUSSION ADVANCE DIRECTIVE DISCUSSION [facility] Start: 04-12-2022 Influenza vaccination INFLUENZA (#1) [facility] Start: 02-09-2022 End: 03-10-2023 SPIROMETRY WITH DILATOR IF OBSTRUCTED [facility] Work Phone: Comment on above: Expected: 02/09/2022 , Expires: 03/10/2023 Start: 12-22-2021 End: 02-21-2022 SYPHILIS TOTAL W/REFLEX SYPHILIS TOTAL W/REFLEX Lab Routine Cognitive impairment, mild, so stated 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) Depression, unspecified depression type Expected: 12/22/2021, Expires: 02/21/2022 [facility] Work Phone: Comment on above: Expected: 12/22/2021 , Expires: 02/21/2022 Start: 12-22-2021 End: 02-21-2022 Thyrotropin [Units/volume] in Serum or Plasma TSH BLD Lab Routine Cognitive impairment, mild, so stated 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) Depression, unspecified depression type Expected: 12/22/2021, Expires: 02/21/2022 [facility] Work Phone: Comment on above: Expected: 12/22/2021 , Expires: 02/21/2022 Start: 12-22-2021 End: 02-21-2022 VITAMIN B12 BLOOD VITAMIN B12 BLOOD Lab Routine Cognitive impairment, mild, so stated 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) Depression, unspecified depression type Expected: 12/22/2021, Expires: 02/21/2022 [facility] Work Phone: Comment on above: Expected: 12/22/2021 , Expires: 02/21/2022 Start: 12-05-2021 COVID-19 VACCINE (4 - Booster for Pfizer series) COVID-19 VACCINE (4 - Booster for Pfizer series) [facility] Start: 10-01-2021 COVID-19 VACCINE (4 - Booster for Pfizer series) COVID-19 VACCINE (4 - Booster for Pfizer series) [facility] Start: 08-12-2021 ADVANCE DIRECTIVE DISCUSSION ADVANCE DIRECTIVE DISCUSSION [facility] Start: 2018 PNEUMOCOCCAL: 65+ (1 - PCV) PNEUMOCOCCAL: 65+ (1 - PCV) [facility] Start: 2018 PNEUMOVAX AGE 65 AND OVER WITH 5YR LOOKBACK (#1) PNEUMOVAX AGE 65 AND OVER WITH 5YR LOOKBACK (#1) [facility] Start: 2008 PROSTATE CANCER SCREENING DISCUSSION PROSTATE CANCER SCREENING DISCUSSION [facility] Start: 2003 SHINGRIX VACCINE (1 of 2) SHINGRIX VACCINE (1 of 2) [facility] Start: 1998 COLOGUARD (FIT-DNA) COLOGUARD (FIT-D NA) [facility] Start: 1998 Colonoscopy COLONOSCOPY [facility] Start: 1998 COLORECTAL CANCER SCREENING COLORECTAL CANCER SCREENING [facility] Start: [address] COLONOGRAPHY [facility] Start: 1998 DIABETES SCREEN DIABETES SCREEN [facility] Start: 1998 FECAL OCCULT BLOOD FECAL OCCULT BLOO D [facility] Start: 1998 SIGMOIDOSCOPY SIGMOIDOSCOPY [facility] Start: 1988 LIPID SCREEN LIPID SCREEN [facility] Start: 1972 Urine microalbumin profile DTAP,TDAP,TD (1 - Tdap) [facility] Start: 1971 HEPATITIS C SCREENING HEPATITIS C SC DARA [facility] Start: 1953 Screening for malign ant neoplasm of colon [facility] End: 01-21-2023 Mri brain brain stem w/o contrast material MRI BRAIN WO IVCON Radiology Routine Cognitive impairment, mild, so stated 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) Depression, unspecified depression type 1 Occurrences starting 12/22/2021 until 01/21/2023 [facility] Work Phone: Comment on above: 1 Occurrences starti ng 12/22/2021 until 01/21/2023 [facility] Immunizations Immunization Date Immunization Notes Care Provider [facility] 08-06-2021 COVID-19 Vaccine Pfi zer - Documentation Purposes Only Corona Monroe Other [employer] Other 05-23-2021 influenza, high dose seasonal, preservative-free Susannah Nevarez Other [employer] Other 05-23-2021 Influenza, High-dose Seasonal, Quadrivalent, Preservative Free Shaikh Cornelio LEMON Work Phone: [facility] 05-23-2021 influenza virus vaccine, unspecified formulation Shaikh Cornelio LEMON Work Phone: [facility] 11-08-2020 COVID-19 Pfizer Susannah montano Other [employer] Other 10-19-2020 COVID-19 Vaccine Pfi zer - Documentation Purposes Only Susannah Nevarez Other [employer] Other 08-03-2020 influenza, high dose seasonal, preservative-free Susannah Nevarez Other [employer] Other 08-03-2020 pneumococcal polysaccharide vaccine, 23 valent Susannah Nevarez Other [employer] Other 08-03-2020 Influenza, High-dose Seasonal, Quadrivalent, Preservative Free Shaikh Cornelio LEMON Work Phone: [facility] 08-27-2019 pneumococcal conjuga te vaccine, 13 valent Susannah Nevarez Other [employer] Other Payers Date Payer Category Payer Self-pay [id number] 2020 Unknown [employer] PPO [id number] 2020-Present [phone] [address] [place] [address] PPO [id number] 2018 Unknown 2015 Medicare MEDICARE MEDICAR E A AND B [id number] 2015-Present [phone] [address] [address] [place] [address] Medicare [id number] 2015 Medicare [id number] 1959 [facility] [id number] 1959 Medicare [id number] 1953 Unknown [id number] 1953 Unknown [id number] 1953 Unknown [id number] 1953 Unknown [id number] Unknown [facility] [id number] Unknown [id number] 31 Unknown [id number] Social History Date Type Detail Facility Start: 12-22-2021 End: 08-15-2022 Tobacco smoking status SDIS Never smoked tobacco [facility] Start: 12-22-2021 End: 04-10-2022 Tobacco use and exposure User of smokeless tobacco [facility] End: 07-14-2022 History of tobacco use Chews Tobacco [facility] Start: 1955 Sex Assigned At Not on file C [facility] Start: 12-12-2021 End: 04-10-2022 Exposure to SARS-CoV-2 (event) Not sure [facility] Start: 07-22-2023 End: 09-19-2023 Sex Assigned At [facility] Start: 09-30-2020 End: 07-12-2023 Tobacco smoking status [facility] Ex-smoker (finding) [facility] Start: 1955 Sex Assigned At Male F [facility] Start: 08-15-2022 Tobacco use and exposure Former smokeless tobacco user [facility] History of tobacco use Current smoker [facility] History of tobacco use Cigarette Smoker [facility] Start: 07-12-2023 Tobacco use and exposure Smokeless tobacco non-user [facility] Start: 09-19-2023 Alcohol intake Lifetime non-d kevin (finding) [facility] Start: 07-22-2023 End: 09-19-2023 History of [...] hernia, umbilical Abdominal hernia surgical mesh, composite-polymer [id number] [facility] Start: 09-30-2020 Clinical Notes 05-23-2021 [...] kidney disease) stage 4, GFR 15-29 ml/min ([facility]) Has an appointment with Nephrology. Avoid NSAIDS. C/w current regimen. Associated Problem(s): Coronary artery disease involving choctaw coronary artery 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 pectoris ([facility]) S/p CABG. On ASA, BB, Imdur, plavix, statin Denies CP, SOB, palpitations. Following [facility] cardiology. Subjective Patient ID: Kel Castillo Jr [...] in the morning. Take with meals. 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 On ASA, BB, Imdur, plavix, statin Denies CP, SOB, palpitations. Following [facility] cardiology. Relevant Medications aspirin 81 MG EC tablet isosorbide mononitrate ER (Imdur) 60 MG 24 hr tablet metoprolol tartrate (Lopressor) 50 MG tablet clopidogrel (Plavix) 75 MG tablet Other Relevant Orders CBC and differential Comprehensive metabolic panel Other hyperlipidemia ([facility]) Check Lipid panel. Relevant Medications atorvastatin (Lipitor) 80 MG tablet fenofibrate micronized (Antara) 43 MG capsule Other Relevant Orders Lipid panel CKD (chronic kidney disease) stage 4, GFR 15-29 ml/min ([facility]) Has an appointment with Nephrology. Avoid NSAIDS. C/w current regimen. Relevant Orders CBC and differential Comprehensive metabolic panel Protein, urine, random Creatinine, urine, random Gastroesophageal reflux disease without esophagitis Relevant Medications famotidine (Pepcid) 20 MG tablet EDITH (generalized anxiety disorder) ([facility]) Improved now. C/w current regimen. [...] disease, unspecified COPD type (CMS/HCC) Relevant Medications Luhiryxcgxy-Heywlocus-Riruem (Trelegy Ellipta) 100-62.5-25 MCG/ACT aerosol powder No follow-ups on file. documented in this encounter [facility] 08-15-2022 Note HNO ID: [id number] Author: Ebony Kaufman DO Service: ? Author Type: Physician Type: Progress Notes Filed: 08/15/2022 5:31 PM Note Text: [facility] General Neurology Follow up/ Established patient visit Individuals who were included in, or assisted with the encounter were: Samir Castillo Ebony Kaufman DO Chief Complaint/Issues: Samir Castillo is a 67 year old male seen in the [facility] for General Neurology for: Follow-up Most Recent [...] AND Plan 08/15/2022 - General Neurology, Ebony Kafuman, DO ASSESSMENT Mr. Castillo is a 67 [...] AND 1/2 TABLETS BY MOUTH EVERY DAY Zmfxgwxutqkvm-Ywdzhega-Yenfho (MULTIVITAMIN 50 PLUS) tab Take 1 tablet by mouth once daily. omega 3-qkl-bvn-fish oil (FISH OIL) 100-160-1,000 mg cap Take by mouth. methylPREDNISolone (MEDROL, TEAGAN,) 4 mg Dose-Pack Take as instructed (Patient not taking: No sig reported) No current facility-administered medications for this (more content not included)... [facility] 08-15-2022 Instructions Ebony Kaufman DO - 08/15/2022 4:17 PM EST Please work with your doctor on the sleep apnea and psychiatrist for depression. Follow-up in 6 months. documented in this encounter [facility] 08-15-2022 History of Presen t illness Narrative Images from the original note were not included. [facility] for General Neurology Follow up/ Established patient visit Individuals who were included in, or assisted with the encounter were: Samir Castillo Ebony Kaufman DO Chief Complaint/Issues: Samir Castillo is a 67 year old male seen in the [facility] for General Neurology for: Follow-up Most Recent [...] AND 1/2 TABLETS BY MOUTH EVERY DAY Piakulyzstnqr-Gdexjrom-Xkixsn (MULTIVITAMIN 50 PLUS) tab Take 1 tablet by mouth once daily. omega 4-irh-rno-fish oil (FISH OIL) 100-160-1,000 mg cap Take [...] which included preparing to see the patient, vuae-np-yhga patient care, completing clinical documentation, obtaining and/or reviewing separately obtained history, performing a medically appropriate examination, counseling and educating the patient/family/caregiver, and ordering medications, tests, or procedures. Ebony Kaufman DO documented in this encounter [facility] 07-10-2022 Evaluation note Encounter Date Diagnosis [...] mmol/L. 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 Author Type: Physician Type: Progress Notes Filed: 04/12/2022 12:26 AM Note Text: [facility] for General Neurology New Patient Evaluation Consulting Provider: Jessie Lay [address] [facility] [address] Individuals who were included in, or assisted with the encounter were: Samir Castillo Ebony Kaufman DO Chief Complaint/Issues: Samir Castillo is a 66 year old male seen in the [facility] for General Neurology for: Memory HPI: Here [...] notices problems with both short term and usp memory Language: yes, word finding problems. Knows [...] (PEPCID) 20 mg ta (more content not included)...[facility] 04-10-2022 Instructions* Patient Instructions* Ebony Kaufman [...] Follow-up in four months. [facility] History of Present illness Narrative* Ebony Kaufman DO - 04/10/2022 10:11 AM EDT Images from the original note were not included. [facility] for General Neurology New Patient Evaluation Consulting Provider: Jessie Lay [address] [facility] [address] Individuals who were included in, or assisted with the encounter were: Samir Castillo Ebony Kaufman DO Chief Complaint/Issues: Samir Castillo is a 66 year old male seen in the [facility] for General Neurology for: Memory HPI: Here [...] notices problems with both short term and patient service rep memory Language: yes, word finding problems. Knows [...] AND 1/2 TABLETS BY MOUTH EVERY DAY Swjynntuzhwwx-Rxmhxhqi-Zjrnms (MULTIVITAMIN 50 PLUS) tab Take 1 tablet by mouth once daily. omega 2-rfn-nqa-fish oil (FISH OIL) 100-160-1,000 mg cap Take [...] which included preparing to see the patient, cmql-qw-vwaz patient care, completing clinical documentation, obtaining and/or reviewing separately obtained history, performing a medically appropriate examination, and counseling and educating the patient/family/caregiver. Ebony Kaufman DO documented [facility] NoteHNO ID: [id number] Author: Janell Polanco, PhD Service: ? 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 Brain MRI (02/08/2022) noted severe generalized volume [...] interest in transferring his psychiatric care to [facility]. The patient reported being sober since [...] stroke, and seizure. CURRENT MEDICATIONS, PER RECORDS (EC TEACHER-relevant medications in bold): Medication albuterol HFA (PROVENTIL [...] mg tablet sertraline (ZOLOFT) 100 mg tablet Vaukdowsfbwlp-Cmtmffxn-Hnwjvx (MULTIVITAMIN 50 PLUS) tab omega 2-sro-ssx-fish oil (FISH OIL) 100-160-1,000 mg cap methylPREDNISolone (MEDROL, TEAGAN,) 4 mg Dose-Pack FAMILY HISTORY: patient reported depression (mother, daughter) and diabetes (mother); denied family history of neurodegenerative conditions. BEHAVIORAL OBSERVATIONS: The patient presented as a casual (more content not included)...[facility]08-02-2022 Evaluation note* Encounter Date Diagnosis Assessment Notes Treatment Notes Treatment Clinical Notes Mar, Depression, major, recurrent, moderate (ICD-10 - F33.1) [employer] Other 07-25-2022 Evaluation note* Encounter Date Diagnosis Assessment Notes Treatment Notes Treatment Clinical Notes Feb, Depression, major, recurrent, moderate (ICD-10 - F33.1) [employer] Other 07-19-2022 Evaluation note* Encounter Date Diagnosis [...] Sleep apnea, unspecified type (ICD-10 - G47.30) [employer] Other 07-01-2022 Miscellaneous Notes* Telephone Encounter - [...] Dr. Roche Message text documented in this encounterBar[facility] NoteHNO ID: [id number] Author: Marisol Davis MD Service: ? Author Type: Physician Type: Progress Notes Filed: 02/15/2022 1:05 PM Note Text: Mr. Castillo is a 66 year old male who presents to the [facility] [place]. Consultation requested for an opinion regarding SOB. 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 omega 8-ygl-xwj-fish oil (FISH OIL) 100-160-1,000 mg cap Take by mouth. methylPREDNISolone (MEDROL, TEAGAN,) 4 mg Dose-Pack Take as instructed PHYSICAL EXAM: Physical Exam On room air, able to complete sentences, no LE extremity edema No cervical or axillary LAD Chest: Air entry reduced in the lung bases, no wheeze or rhonchi CVS HS1/2 no crackles Abd soft, non tender EC TEACHER: No focal deficits Labs / Imaging / Diagnostic Studies: All radiography listed below personally reviewed by me Data Reviewed from [facility] (in addition to that noted in HPI, and Past histories above): CMP, CBC PFT: 02/09/2022 ? (more content not included)...[facility]07-01-2022 Note HNO ID: [id number] Author: Brayan Trent CRT Service: ? Author Type: Respiratory Therapist Type: Progress Notes Filed: 02/09/2022 10:57 AM Note Text: PULM FUNCTION SMARTBLOCK: Provider: Prince Aby MD Spirometry w/BD: 1 System: MC9 - [id number] History of Present illness Narrative* Brayan Trent CRT - 02/09/2022 10:41 AM EDT PULM FUNCTION SMARTBLOCK: Provider: Prince Aby MD Spirometry w/BD: 1 System: MC9 - [id number] documented in this encounterBar[facility]06-[facility]22 NoteHNO ID: [id number] Author: RT Ed(Rayo) Service: Radiology Author Type: [...] BY: RT Ed(Rayo) February 08, 2022 4:[address] [facility]06[facility] History of Present illness Narrative* NOVA [...] 08, 2022 4:21 PM documented in this encounterBar[facility]06[facility] Evaluation note* Encounter Date Diagnosis Assessment [...] relief. Also reports that he saw his rn bone marrow transplant recently who does not think that his shortness of breath is related to his heart. He did have an appointment with [facility] but has since decided to see pulmonology in [place]. Given his PFT and CT results I [...] with Dr. Hurtado at their upcoming appointment. [employer] Other 05-27-2022 Evaluation note* Encounter Date Diagnosis Assessment Notes Treatment Notes Treatment Clinical Notes December, Obstructive lung disease (ICD-10 - J44.9) December, Pulmonary nodule (ICD-10 - R91.1) [employer] Other 05-23-2022 Evaluation note* Encounter Date Diagnosis Assessment Notes Treatment Notes Treatment Clinical Notes December, Shortness of breath (ICD-10 - R06.02) [employer] Other 05-17-2022 Evaluation note* Encounter Date Diagnosis [...] next month or so we will recheck. [employer] Other 05-13-2022 NoteHNO ID: [id number] Author: Jessie Lay MD Service: ? Author Type: Physician Type: Progress Notes Filed: 12/22/2021 10:51 AM Note Text: [facility] General Neurology New Patient Evaluation Consulting Provider: SELF Individuals who were included in, or assisted with the encounter were: ? Samir Castillo ? Jessie Lay MD Chief Complaint/Issues: Samir Castillo is a 66 year old male seen in the [facility] for General Neurology for: 1. Memory loss. [...] notices problems with both short term and usp memory Language: yes, word finding problems. Knows [...] AT BEDTIME NE (more content not included)... [id number] History of Present illness Narrative* Jessie Lay MD - 12/22/2021 8:41 AM EDT Images from the original note were not included. [facility] General Neurology New Patient Evaluation Consulting Provider: SELF Individuals who were included in, or assisted with the encounter were: Samir Olmedokaren Lay MD Chief Complaint/Issues: Samir Castillo is a 66 year old male seen in the [facility] for General Neurology for: 1. Memory loss. [...] notices problems with both short term and usp memory Language: yes, word finding problems. Knows [...] AND 1/2 TABLETS BY MOUTH EVERY DAY Varzdujiipftl-Winluinv-Xznyti (MULTIVITAMIN 50 PLUS) tab Take 1 tablet by mouth once daily. omega 2-hxj-edg-fish oil (FISH OIL) 100-160-1,000 mg cap Take [...] which included preparing to see the patient, tcow-ji-tahn patient care, completing clinical documentation and performing a medically appropriate examination. Jessie Lay MD documented in this encounterBar[facility]05-[facility] Evaluation note* Encounter Date Diagnosis Assessment Notes Treatment Notes Treatment Clinical Notes December, Depression, major, recurrent, moderate (ICD-10 - F33.1) [employer] Other 10-12-2021 Evaluation note* Encounter Date Diagnosis [...] metoprolol. He follow-up with Dr. Rubio, his rn bone marrow transplant in [place]. He stated that his heart looks fine. [...] at home also runs between 140-150 systolic. [place] systolic blood pressure at home should be [...] his PCP Dr. Arellano for lipid profile. 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)- Primary Other persistent mental disorders due to conditions classified elsewhere Cognitive impairment, mild, so stated Mild cognitive impairment, so stated Depression, unspecified depression type documented in this encounter [facility] noteNo InformationNortClarion Psychiatric Center [employer] Other Evaluation noteNosainte genevieve county [facility] [employer] Other Evaluation note* Diagnosis Cognitive impairment, mild, so stated- Primary Mild cognitive impairment, so stated documented in this encounter [facility] note* Diagnosis Shortness of breath- Primary documented in this encounter [facility] note* Diagnosis Cognitive impairment, mild, so stated Mild cognitive impairment, so stated 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) Other persistent mental disorders due to conditions classified elsewhere Depression, unspecified depression type documented in this encounter [facility]* Diagnosis Shortness of breath documented in this encounter [facility] note* Diagnosis Recurrent major 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)- Primary Major depressive disorder, recurrent episode, in partial or unspecified remission MCI (mild cognitive impairment) Mild cognitive impairment, so stated documented in this encounter [facility] noteNo assessment information availableKing'S Daughters [facility] [place] Work Phone: Evaluation note* Diagnosis MCI (mild cognitive impairment)- Primary Mild cognitive impairment, so stated documented in this encounter [facility] noteNort [employer] Other Evaluation note* Diagnosis Traumatic complete tear [...] esophagitis Esophageal reflux Coronary artery 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 lung cancer Diagnosis 1 Pulmonary nodule (R9 1.1) [facility] Referring Provider First Name Cristo Referring Provider Last Name Gabriele Referring Provider Specialty Family Medi cine Referred Organization [facility] Referred Provider Gonsalo Hawley Referred Address [address] [place] [address],[place] [address],[place],[address] Referred Provider Specialty Pulmonary Di finn Referral Priority Routine General Notes Mattie Carballo 01:40:04 PM >referral received and sent p2p successful per log [facility] [employer] Other Reason for referral (narrative)* Outpatient Procedure (Routine) - Pending Review Specialty Diagnoses / Procedures Referred By Contac t Referred To Contact [facility] Diagnoses Shortness of breath Procedures SPIROMETRY WITH DILATOR IF OBSTRUCTED BRNCDILAT RSPSE SPMTRY PRE&POST-BRNCDILAT ADMN Marisol Davis MD [address] [place] [address] [facility] [place] HospitalThe Rowing Team [facility] [place] [address] Referral ID Status Reason Start Date Expiration Date Visits Requested Visits Authorized [id number] Pending Review Auto-Generat ed Referral 02/09/2022 03/10/2023 1 1 [facility] for visit NarrativeRef by Dr. Suazo for pulmonology, lung nodule, progressive SOB, hx. lung cancerNortClarion Psychiatric Center [employer] Other Summary Purpose Family History Relationship Condition Age at Onset Recorded Date/T yanique Not Specified Hypertension Unknown Diabetes mellitus Unknown father Medical history unknown Unknown Advance Directives Advance Directive Response Recorded Date/ Time Advance Directives No July 6:23pm Hospital Course Note MR#: [id number] [facility] Pt. Name: Kel Castillo Admitted: 10/05/2019 [...] STEM W/[place] [address] [place] [id number] Mr Imaging Referral ID Status Reason Start Date Expiration Date Visits Requested Visits Authorized [id number] Authorized Auto-Generat ed Referral 12/22/2021 01/21/2023 1 1 Specialty Diagnoses / Procedures Referred By Contac t Referred To Contact MR IMAGING Diagnoses Cognitive impairment, mild, so stated Procedures MRI 3D POST PROCESSING 3D RENDERING W/INTERP&POSTPROC DIFF WORK STATION Alonzo Cabrera MD, [address] [place] [address] Mr Imaging Referral ID Status Reason Start Date Expiration Date Visits Requested Visits Authorized [id number] Pending Review Auto-Generat ed Referral 02/08/2022 03/10/2023 1 1 Referral ID Status Reason Start Date Expiration Date V isits Requested Visits Authorized [id number] Closed Auto-Generate d Referral 12/22/2021 01/21/2023 1 1 Specialty Diagnoses / Procedures Referred By Contac t Referred To Contact Psychology Diagnoses Recurrent major 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) Procedures CONSULT TO PSYCHOLOGY OFFICE/OUTPATIENT [facility] 60-74 MINUTES Ebony Kaufman DO [address] [place] [address] Referral ID Status Reason Start Date Expiration Date Visits Requested Visits Authorized [id number] Pending Review PCP Requested Referral 04/10/2022 04/10/2023 1 1 Chief Complaint and Reason for Visit Chief Complaint g47.30 Additional Source Comments (unrecognized sect ion and content) No Status Records FoundNo Status Records FoundNo Status Records FoundNo Status Records FoundNo Status Records FoundNo Status Records FoundNo Status Records Found INFORMATION SOURCE (unrecogn ized section and content) DATE CREATED AUTHOR 04/05/2018 [facility] DATE CREATED AUTHOR AUTHOR'S ORGANIZ ATION 01/06/2020 [facility] DATE CREATED AUTHOR AUTHOR'S ORGANIZ ATION 03/25/2022 [facility] DATE CREATED AUTHOR AUTHOR'S ORGANIZ ATION 08/15/2022 [facility] DATE CREATED AUTHOR AUTHOR'S ORGANIZ ATION 12/19/2022 [facility] DATE CREATED AUTHOR AUTHOR'S ORGANIZ ATION 04/22/2023 [facility] DATE CREATED AUTHOR AUTHOR'S ORGANIZ ATION 09/20/2023 [facility] Specialists EPIC Source Comments (unrecognize d section and content) In the event this informatio n is protected by the Federal Confidentiality of Alcohol and Drug Abuse Patient Records regulations: The Federal rules restrict any use of the information to criminally investigate or prosecute any alcohol or drug abuse patient.[facility] HospitalIn the event this information is protected by the Federal Confidentiality of Alcohol and Drug Abuse Patient Records regulations: The Federal rules restrict any use of the information to criminally investigate or prosecute any alcohol or drug abuse patient.[facility] HospitalIn the event this information is protected by the Federal Confidentiality of Alcohol and Drug Abuse Patient Records regulations: The Federal rules restrict any use of the information to criminally investigate or prosecute any alcohol or drug abuse patient.[facility] HospitalIn the event this information is protected by the Federal Confidentiality of Alcohol and Drug Abuse Patient Records regulations: The Federal rules restrict any use of the information to criminally investigate or prosecute any alcohol or drug abuse patient.[facility] HospitalIn the event this information is protected by the Federal Confidentiality of Alcohol and Drug Abuse Patient Records regulations: The Federal rules restrict any use of the information to criminally investigate or prosecute any alcohol or drug abuse patient.[facility] HospitalIn the event this information is protected by the Federal Confidentiality of Alcohol and Drug Abuse Patient Records regulations: The Federal rules restrict any use of the information to criminally investigate or prosecute any alcohol or drug abuse patient.[facility] HospitalIn the event this information is protected by the Federal Confidentiality of Alcohol and Drug Abuse Patient Records regulations: The Federal rules restrict any use of the information to criminally investigate or prosecute any alcohol or drug abuse patient.[facility] HospitalIn the event this information is protected by the Federal Confidentiality of Alcohol and Drug Abuse Patient Records regulations: The Federal rules restrict any use of the information to criminally investigate or prosecute any alcohol or drug abuse patient.[facility] HospitalIn the event this information is protected by the Federal Confidentiality of Alcohol and Drug Abuse Patient Records regulations: The Federal rules restrict any use of the information to criminally investigate or prosecute any alcohol or drug abuse patient.[facility] Reason for Visit (unrecogniz ed section and content) Reason Comments New Patient Memory loss Specialty Diagnoses / Procedures Referred By Contximena t Referred To Contact MR IMAGING Diagnoses Cognitive impairment, mild, so stated 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) Depression, unspecified depression type Procedures MRI BRAIN WO IVCON MRI BRAIN BRAIN STEM W/[place] [address] [place] [address] Mr Imaging Referral ID Status Reason Start Date Expiration Date V isits Requested Visits Authorized [id number] Closed Auto-Generate d Referral 12/22/2021 01/21/2023 1 1 Reason Comments Spirometry Specialty Diagnoses / Procedures Referred By Contac t Referred To Contact [facility] Diagnoses Shortness of breath Procedures SPIROMETRY WITH DILATOR IF OBSTRUCTED BRNCDILAT RSPSE SPMTRY PRE&POST-BRNCDILAT ADMN Marisol Davis MD [address] [place] [address] [facility] [place] [address] [place] [address] Referral ID Status Reason Start Date Expiration Date V isits Requested Visits Authorized [id number] Closed Auto-Generate d Referral 02/09/2022 03/10/2023 1 1 Reason Comments New Patient 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) Reason Comments [employer] - Other In response to order placed in [email or web address] Reason Comments Established Patient Reason Comments Follow-up MEDS/SHOULDER Care Teams (unrecognized sec tion and content) Communications Intern Relationship Specialty Start Date End Date [facility], [place] [address] [place] [address] [place] Referring Team Psychiatry 12/21/21 Communications Intern Relationship Specialty Start Date End Date [facility] [place] [address] [place] [address] NI Referring Team Psychiatry 12/21/21 Communications Intern Relationship Specialty Start Date End Date [facility] [place] [address] [place] [address] NI Referring Team Psychiatry 12/21/21 Communications Intern Relationship Specialty Start Date End Date [facility] [place] [address] [place] [address] NI Referring Team Psychiatry 12/21/21 Communications Intern Relationship Specialty Start Date End Date [facility], [place] [address] [place] [address] NI Referring Team Psychiatry 12/21/21 Communications Intern Relationship Specialty Start Date End Date [facility], [place] [address] [place] [address] NI Referring Team Psychiatry 12/21/21 Communications Intern Relationship Specialty Start Date End Date [facility], [place] [address] [place] [address] NI Referring Team Psychiatry 12/21/21 Team Status: Inactive Member Role Status Dates Corona Monroe MD Attending Provider Active Daria Cardoza DO Primary Care Provider Active Team Status: Active Member Role Status Dates Daria Cardoza DO Primary Care Provider Active Communications Intern Relationship Specialty Start Date End Date [facility] [place] [address] [place] [address] NI Referring Team Psychiatry 12/21/21 Communications Intern Relationship Specialty Start Date End Date Shaikh [...] BE BASED ON THE PRIMARY CLINICAL RECORDS. [facility]. provides no warranty or guarantee of the accuracy or completeness of information in this document.
[2023-10-10 12:52] LABS: Bilirubin Urine NEGATIVE (NEGATIVE); Blood Urine NEGATIVE (NEGATIVE); Clarity Urine CLEAR (CLEAR); Color Urine LT. YELLOW (YELLOW); Glucose Urine UA NEGATIVE (NEGATIVE); Ketones Urine NEGATIVE (NEGATIVE); Leukocyte Esterase Urine NEGATIVE (NEGATIVE); Nitrite Urine NEGATIVE (NEGATIVE); Protein Urine NEGATIVE (NEG/TRACE); Urobilinogen Urine 0.2 EU/dL (0.2-1.0)
[2023-10-10 12:55] LABS: Hemoglobin 13.7 g/dL (14.0-18.0); Mean Corpuscular HGB Conc 30.4 g/dL (29.9-35.2); Mean Corpuscular Hemoglobin 30.2 pg (25.9-34.0); Mean Corpuscular Volume 99.3 fL (80.0-94.0); Mean Platelet Volume 9.8 fL (9.5-13.5); Platelet Count 173 10^3/uL (150-450); Red Blood Count 4.53 10^6/uL (4.70-6.10); Red Cell Distribution Width 14.5 % (11.0-15.0); White Blood Count 10.6 10^3/uL (4.0-11.0)
[2023-10-10 13:43] LABS: Alanine Aminotransferase 74 U/L (16-63); Albumin Globulin Ratio 0.9; Albumin Level 3.8 g/dL (3.4-5.0); Alkaline Phosphatase 112 U/L (46-116); Anion Gap 13.4; Aspartate Amino Transferase 51 U/L (15-37); BUN Creatinine Ratio 14.4; Bilirubin Total 0.4 mg/dL (0.2-1.0); Calcium 9.4 mg/dL (8.5-10.1); Carbon Dioxide 28.2 mmol/L (21.0-32.0); Chloride 107 mmol/L (98-107); Estimated GFR (African America 45 (>=60); Estimated GFR (Non-African Ame 37 (>=60); Globulin 4.2 g/dL; Glucose 90 mg/dL (74-106); Phosphorus 4.4 mg/dL (2.6-4.7); Potassium 4.6 mmol/L (3.5-5.1); Sodium 144 mmol/L (136-145); Uric Acid 5.7 mg/dL (3.5-7.2)
[2023-10-10 13:55] LABS: Creatinine Urine Random 26.91 mg/dL (20.00-300.00); Protein Creatinine Ratio Urine 0.22; Total Protein Urine Random <6.0 mg/dL (<=11.9)
[2023-10-11 12:11] LABS: PTH, Intact 25 pg/mL (15-65)
== END 2023-10-10 12:22 | disposition home or self-care (01) ==
LOC: LAB 12:25
PROVIDERS: PCP Internal Medicine; Visit Provider Internal Medicine Nephrology
DX: I12.9 Hypertensive chronic kidney disease with stage 1 through stage 4 chronic kidney disease, or unspecified chronic kidney disease (principal); N18.32 Chronic kidney disease, stage 3b; I25.810 Atherosclerosis of coronary artery bypass graft(s) without angina pectoris; E78.5 Hyperlipidemia, unspecified; E87.5 Hyperkalemia
CPT/HCPCS: 36415; 80053; 81003; 82306; 82570; 83970; 84100; 84156; 84550; 85027

== ENCOUNTER 2025-02-18 07:05 | Outpatient (OUT) | payer MEDICARE, SELFPAY ==
--- OUTSIDE RECORDS SUMMARY | 2023-10-21 04:40 | XMS_ITS ---
Author Organization [facility] Address [address] [place] [address] Care Team Providers Care Radiosonde Operator Name Role Phone Carlyle Mcgowan [facility] [phone] REASON FOR VISIT LEFT SHOULDER F/U Encounters Encounter Location Date Provider Diagnosis [facility] [address] [place] [address] [place] [address] 10/21/2023 Carlyle Mcgowan Plan Of Treatment No Information Progress Notes * ANNA KEL aikenDOB:1954 (69 yo M)Acc No.[id number]:10/21/2023 Patient: KEL CHOI Provider: Holden Mcgowan MD :1955 A ge:68 Y S ex:Male Date:10/21/2023 Address:[address] [place], [place] [id number] Subjective: * Chief Complaints: * 1 . LEFT SHOULDER F/U. * Medical History: Objective: * Vitals: Assessment: Plan: * Treatment: Forms: * Images: * Electronic signature of Frandy Mcgowan MD on 02/18/2025 at 07:10 AM EDT Sign off status: Pending * Provider: Holden Mcgowan MD Date: 10/21/2023 Generated for Milo ng/Milka/eTransmitting on: 0 02/18/2025 07:10 AM EDT
--- OUTSIDE RECORDS SUMMARY | 2025-02-18 07:11 | XMS_ITS | Encounter Summary ---
Author Organization [facility] Address [address] [place] [address] Care Team Providers Care Control Panel Operator Name Role Phone Shaikh ION Grimes Primary Care Provider [phone] Shaikh ION Grimes Unavailable [phone] Jose Beckford MD Primary Care Provider [phone] Cherelle Coronado NP Unavailable [phone] Vannessa Russell MA Unavailable [phone] Encounter Details Date Type Department Care Team (Late st Contact Info) Description 12/16/2023 [facility] [address] [place] [address] Shaikh Grimes MD [address] [place] [phone] Social History Tobacco Use Types Packs/Day Years Used Date Smoking Tobacco: Former Cigarettes Smokeless Tobacco: Never Alcohol Use Standard Drinks/Week Comments Never 0 (1 standard drink = 0.6 oz pur e alcohol) caffeine: 1-2 cups per day Humiliation, Afraid, Rape, and Kick questionnair e Answer Date Recorded Within the last year, have y ou been afraid of your partner or ex-partner? No 07/22/2023 Within the last year, have y ou been humiliated or emotionally abused in other ways by your partner or ex-partner? No Within the last year, have y ou been kicked, hit, slapped, or otherwise physically hurt by your partner or ex-partner? No 07/22/2023 Within the last year, have y ou been raped or forced to have any kind of sexual activity by your partner or ex-partner? No 07/22/2023 Social Connection and Isolat ion Panel [NHANES] Answer Date Recorded In a typical week, how many times do you talk on the phone with family, friends, or neighbors? More than three times a week 07/22/2023 How often do you get togethe r with friends or relatives? Twice a week 07/22/2023 How often do you attend chur or oriental orthodox services? Never 07/22/2023 Do you belong to any clubs o r organizations such as zoroastrianism groups, unions, fraternal or athletic groups, or school groups? No 07/22/2023 How often do you attend meet ings of the clubs or organizations you belong to? Never 07/22/2023 Are you , , di vorced, , never , or living with a partner? 07/22/2023 AUDIT-C Answer Date Recorded Q1: How often do you have a drink containing alcohol? Never 07/22/2023 Q2: How many drinks containi ng alcohol do you have on a typical day when you are drinking? Patient does not drink Q3: How often do you have si x or more drinks on one occasion? Never 07/22/2023 Overall Financial Resource Strain (CARDIA) Answe r Date Recorded How hard is it for you to pa y for the very basics like food, housing, medical care, and heating? Somewhat hard 07/22/2023 PHQ-2 Answer Date Recorded Patient Health Questionnaire-2 Score 0 09/19/2023 [facility] of Occupat ional Health - Occupational Stress Questionnaire Answer Date Recorded Do you feel stress - tense, restless, nervous, or anxious, or unable to sleep at night because your mind is troubled all the time - these days? Very much 07/22/2023 Exercise Vital Sign Answer Date Recorde d On average, how many days pe r week do you engage in moderate to strenuous exercise (like a brisk walk)? 0 days 07/22/2023 On average, how many minutes do you engage in exercise at this level? 0 min 07/22/2023 Hunger Vital Sign Answer Date Recorded Within the past 12 months, y ou worried that your food would run out before you got the money to buy more. Never true 07/22/20 Within the past 12 months, t he food you bought just didn't last and you didn't have money to get more. Never true 07/22/2023 PRAPARE - Transportation Answer Date Re corded In the past 12 months, has l ack of transportation kept you from medical appointments or from getting medications? No 07/12 In the past 12 months, has l ack of transportation kept you from meetings, work, or from getting things needed for daily living? No 07/22/2023 Housing Stability Vital Sign Answer Jassi e Recorded In the last 12 months, was t here a time when you were not able to pay the mortgage or rent on time? No 07/22/2023 In the last 12 months, how many places have you lived? 1 07/22/2023 In the last 12 months, was t here a time when you did not have a steady place to sleep or slept in a long-term (including now)? No 07/22/2023 Sex and Gender Information Value Date Recorded Sex Assigned at Not on file Legal Sex Male 10:05 PM EDT Gender Identity Not on file Sexual Orientation Not on file documented as of this encounter Plan of Treatment Upcoming Encounters Date Type Department Care Team (Late st Contact Info) Description 03/01/2025 1:40 PM EDT Office Visit [facility] [address] [address] Susan Watson NP [address] [place] [address] documented as of this encounter Visit Diagnoses Not on filedocumented in this encounter Care Teams Control Panel Operator Relationship Specialty Start Date End Date Shaikh Grimes MD [address] [place] [address] PCP - General Internal Medicine 08/12/22 06/08/24 Shaikh Grimes MD [address] [place] [address] PCP - [employer] 10/11/23 08/11/24 Jose Beckford MD [address] [place] [address] PCP - General Family Medicine 06/09/24 Cherelle Corondao NP [address] [place] [address] Nurse Practitioner Family Medicine 06/09/24 Vannessa Russell, MINESH [address] [place] [address] Family Medicine 06/17/24 06/18/24 documented as of this encounter
--- OUTSIDE RECORDS SUMMARY | 2025-02-18 07:11 | XMS_ITS | Encounter Summary ---
Author Organization [facility] Address [address] [place] [address] Care Team Providers Care Chiller Technician Name Role Phone Shaikh ION Grimes Primary Care Provider [phone] Shaikh ION Grimes Unavailable [phone] Jose Beckford MD Primary Care Provider [phone] Cherelle Coronado NP Unavailable [phone] Vannessa Russell MA Unavailable [phone] Encounter Details Date Type Department Care Team (Late st Contact Info) Description 08/26/2023 Clinisync Result Encounter [facility] External Department Unsolicited Provider, Generic External Data Social History Tobacco Use Types Packs/Day Years [...] 07/22/2023 How often do you attend chur ch or jehovah's witness services? Never 07/22/2023 Do you belong to any clubs o r organizations such as jainism groups, unions, fraternal or athletic groups, or [...] medical care, and heating? Somewhat hard 07/22/2023 [facility] of Occupat ional Health - Occupational Stress [...] money to buy more. Never true 07/22/20 23 Within the past 12 months, t he [...] place to sleep or slept in a fpc (including now)? No 07/22/2023 Sex and Gender Information Value Date Recorded Sex Assigned at Not on file Legal Sex Male 10:05 PM EDT Gender Identity Not on file Sexual Orientation Not on file documented as of this encounter Plan of Treatment Upcoming Encounters Date Type Department Care Team (Late st Contact Info) Description 03/01/2025 1:40 PM EDT Office Visit [facility] [address] [place] [address] Susan Watson NP [address] [facility] [place] [address] documented as of this encounter Procedures Procedure Name Priority Date/Time Associated Diagnosis Comments XR SHOULDER 2+ VIEWS LEFT 08/26/2023 3:14 PM EST documented in this encounter Results * XR shoulder 2+ views left (08/26/2023 3:14 PM EST) Anatomical Region Laterality Modality Upper Extremities, Shoulder Left Radi ographic Imaging 08/26/2023 3:14 PM EST Narrative 08/26/2023 3:17 PM EST The [address] [address] XRay Report Signed Patient: KEL CASTILLO Jr. MR#: [id number] : 1955 Acct:[id number] Age/Sex: 68 / M ADM Date: 08/26/23 Loc: RAD Attending Dr: Carlyle Zhang M.D. Ordering Physician: Carlyle Zhang M.D. Date of Service: 08/26/23 Procedure(s): XR shoulder LT min 2V Accession Number(s): [id number] cc: Carlyle Zhang M.D.; Shaikh Krish Grimes [facility] [place] [address] Patient Name: KEL CASTILLO MRN: [id number] date: 1955 Sex: M Assigned Patient Location: RAD Current Patient Location: RAD Accession/Order Number: [id number] Exam Date: 08/26/2023 11:50 Report Date: 08/26/2023 15:14 At the request of: CARLYLE ZHANG Procedure: XR shoulder LT min 2V 3 views of the left shoulder INDICATION: Pain COMPARISON: 07/29/2023 XR/XR shoulder LT min 2V IMPRESSION: Mild degenerative changes of the left shoulder without evidence for acute fracture or dislocation. Soft tissues are grossly unremarkable. Electronically authenticated by: JOSÉ MIGUEL GONZALEZ Date: 08/26/2023 15:14 Dictated By: José Miguel Gonzalez M.D. Signed By: 08/26/23 1517 DD/ TD/TT: Headend Technician: Procedure Note Radiology, Radiologist, MD - 10/16/2023 [place] [address] XRay Report Signed Patient: KEL CASTILLO Jr.MR#: [id number] : 1955cct:[id number] Age/Sex: 68 / MADM Date: 08/26/23 Loc: RAD Attending Dr: Carlyle Zhang M.D. Ordering Physician: Carlyle Zhang M.D. Date of Service: 08/26/23 Procedure(s): XR shoulder LT min 2V Accession Number(s): [id number] cc: Carlyle Zhang M.D.; Shaikh Krish Grimes [facility] [place] [id number] Patient Name: KEL CASTILLO MRN: [id number] date: 1955 Sex: M Assigned Patient Location: RAD Current Patient Location: RAD Accession/Order Number: [id number] Exam Date: 08/26/2023 11:50 Report Date: 08/26/2023 15:14 At the request of: CARLYLE ZHANG Procedure: XR shoulder LT min 2V 3 views of the left shoulder INDICATION: Pain COMPARISON: 07/29/2023 XR/XR shoulder LT min 2V IMPRESSION: Mild degenerative changes of the left shoulder without evidence for acute fracture or dislocation. Soft tissues are grossly unremarkable. Electronically authenticated by: JOSÉ MIGUEL GONZALEZ Date: 08/26/2023 15:14 Dictated By: José Miguel Gonzalez M.D. Signed By:08/26/237 DD/ TD/TT: Headend Technician: Generic External Data Provider IMG XR PROCEDURES Final Result documented in this encounter Visit Diagnoses Not on filedocumented in this encounter Care Teams Chiller Technician Relationship Specialty Start Date End Date Shaikh Grimes MD [address] [place] [address] PCP - General Internal Medicine 08/12/22 06/08/24 Shaikh Grimes MD [address] [place] [address] PCP - [employer] 10/11/23 08/11/24 Jose Beckfrod MD [address] [place] [address] PCP - General Family Medicine 06/09/24 Cherelle Coronado NP [address] [facility] [place] [address] Nurse Practitioner Family Medicine 06/09/24 Vannessa Russell MA [address] [place] [address] Family Medicine 06/17/24 06/18/24 documented as of this encounter
--- OUTSIDE RECORDS SUMMARY | 2025-02-18 07:11 | XMS_ITS | Encounter Summary ---
Author Organization [facility] Address [address] [place] [address] Care Team Providers Care Manager Reading Name Role Phone Shaikh ION Grimes Primary Care Provider [phone] Shaikh ION Grimes Unavailable [phone] Jose Beckford MD Primary Care Provider [phone] Cherelle Coronado NP Unavailable Vannessa Russell MA Unavailable [phone] Reason for Visit * Reason Comments Med Refill Encounter Details Date Type Department Care Team (Late st Contact Info) Description 03/22/2024 [facility] [address] [place] [address] Shaikh Grimes MD [address] [place] [address] Recurrent major depression in partial remission Social History Tobacco Use Types Packs/Day Years Used Date Smoking Tobacco: Former Cigarettes Passive Smoke Exposure: Never Smokeless Tobacco: Never Alcohol Use Standard Drinks/Week [...] How often do you attend chur or zoroastrian services? Never 07/22/2023 Do you belong to any clubs o r organizations such as islam groups, unions, fraternal or athletic groups, or [...] Date Recorded Patient Health Questionnaire-2 Score 0 03/11/2024 [facility] of Occupat ionwy Health - Occupational Stress Questionnaire Answer Date [...] EDT Office Visit [facility] [address] [place] [address] Susan Watson NP [address] [place] [address] documented as of this encounter Visit Diagnoses Diagnosis Recurrent major depression in partial remission Major depressive disorder, recurrent episode, in partial or unspecified remission documented in this encounter Care Teams Manager Reading Relationship Specialty Start Date End Date Shaikh Grimes MD [address] [place] [address] PCP - General Internal Medicine 08/12/22 06/08/24 Shaikh Grimes MD [address] [place] [address] PCP - [employer] 10/11/23 08/11/24 Jose Beckford MD [address] [place] [address] PCP - General Family Medicine 06/09/24 Cherelle Coronado NP [address] [place] [address] Nurse Practitioner Family Medicine 06/09/24 Vannessa Russell MA [address] [place] [address] Family Medicine 06/17/24 06/18/24 documented as of this encounter
--- OUTSIDE RECORDS SUMMARY | 2025-02-18 07:11 | XMS_ITS | Encounter Summary ---
Author Organization [facility] Address [address] [place] [address] Care Team Providers Care Pipeline Gang Supervisor Name Role Phone Thomas Hurtado MD Unavailable Source Comments In the event this information is protected by the Federal Confidentiality of Alcohol and Drug AbusePatient Records regulations: The Federal rules restrict any use of the information to criminally investigate or prosecute any alcohol or drug abuse patient.[facility] Reason for Visit * Reason Comments PSG Check In Encounter Details Date Type Department Care Team ([facility] st Contact Info) Description 02/15/2022 Abstract Neurology [address] [place] [address] [facility] [address] [place] [address] PSG Check In Social History Tobacco Use Types Packs/Day Years Used Date Smoking Tobacco: Never Smokeless Tobacco: Current Chew PHQ-2 Answer Date Recorded PHQ-2 score 6 12/22/2021 Area Deprivation Index Answer Date Brandon rded National Score (1-100), lower number is lower ri sk 87 01/02/2022 State Score (1-10), lower number is lower risk N ot on file 01/02/2022 Data from: https://www.neighborhoodatlas.medicine.[facility].edu/. Last address used for calculation [address] 01/02/2022 Sex and Gender Information Value Date Recorded Sex Assigned at Not on file Legal Sex Male 11:57 AM EDT Gender Identity Not on file Sexual Orientation Not on file COVID-19 Exposure Response Date Recorded In the last 10 days, have yo u been in contact with someone who was confirmed or suspected to have Coronavirus/COVID-19? No / Unsure 02/08/2022 3:47 PM EDT documented as of this encounter Plan of Treatment Upcoming Encounters Date Type Department Care Team (Late st Contact Info) Description 04/16/2025 11:00 AM EDT Office Visit Neurology [address] [place] [address] Ebony Henderson DO [address] [place] [address] 6 month follow up documented as of this encounter Visit Diagnoses Not on filedocumented in this encounter Care Teams Pipeline Gang Supervisor Relationship Specialty Start Date End Date Thomas Hurtado MD [address] [place] [address] NI Referring Team Psychiatry 12/21/21 documented as of this encounter
--- OUTSIDE RECORDS SUMMARY | 2025-02-18 07:11 | XMS_ITS | Clinical Summary ---
Author Organization [facility] Address [address] [facility] [place] [address] Phone Care Team Providers Care Ritual Circumciser Name Role Phone Unavailable Primary Care Provider Unavailabl e Social History Tobacco Use Types Packs/Day Years Used Date Smoking Tobacco: Never Assessed Sex and Gender Information Value Date Recorded Sex Assigned at Not on file Legal Sex Male 9:17 AM EST Gender Identity Not on file Sexual Orientation Not on file Plan of Treatment Not on file
--- OUTSIDE RECORDS SUMMARY | 2025-02-18 07:11 | XMS_ITS | Clinical Summary ---
Author Organization [employer] ([employer])s tem Address [facility] [id number] [address] [place] [address] Care Team Providers Care Scheduler Maintenance Name Role Phone Susan Watson APRN-DELIVERY AGENT Primary Care Provider Allergies No known active allergies Medications amLODIPine (NORVASC) 5 mg tablet Take 1 tablet (5 mg total) by mouth in the morning. Active isosorbide mononitrate (IMDUR) 60 mg 24 hr tablet Take 1 tablet (60 mg total) by mouth daily. Active atorvastatin (LIPITOR) 80 mg tablet Take 1 tablet (80 mg total) by mouth in the morning. Active clopidogreL (PLAVIX) 75 mg tablet Take 1 tablet (75 mg total) by mouth in the morning. Active famotidine (PEPCID) 20 mg tablet Take 1 tablet (20 mg total) by mouth in the morning and 1 tablet (20 mg total) before bedtime. Active fenofibrate micronized (ANTARA) 43 mg capsule Take 1 capsule (43 mg total) by mouth every morning before breakfast. Active metoprolol tartrate (LOPRESSOR) 50 mg tablet Take 1 tablet (50 mg total) by mouth in the morning and 1 tablet (50 mg total) before bedtime. Active sertraline (ZOLOFT) 100 mg tablet Take 1 tablet (100 mg total) by mouth in the morning. Active buPROPion XL (WELLBUTRIN XL) 300 mg 24 hr tablet Take 1 tablet (300 mg total) by mouth in the morning. Active OLANZapine (ZyPREXA) 5 mg tablet Take 1 tablet (5 mg total) by mouth nightly. Active traZODone (DESYREL) 100 mg tablet Take 1 tablet (100 mg total) by mouth nightly. Active busPIRone (BUSPAR) 15 mg tablet Take 1 tablet (15 mg total) by mouth in the morning and 1 tablet (15 mg total) at noon and 1 tablet (15 mg total) before bedtime. Active predniSONE (DELTASONE) 20 mg tablet 60mg x3d, 40mg x3d, 20mg x3d, 10mg x4d 20 tablet 4 Active Additional Information Patient not taking.Reported on 01/27/2025 albuterol (PROVENTIL HFA;VENTOLIN HFA) 90 mcg/actuation inhalerIndicatio ns:Acute bronchitis, unspecified organism Inhale 2 puffs every 4 (four) hours as needed for wheezing. 18 g 4 Active aspirin 81 mg Take 1 tablet (81 mg total) by mouth every morning. TAKE 1 TABLET (81 MG) BY MOUTH IN THE MORNING 5 03/24/20 25 Active baclofen (LIORESAL) 10 mg tablet Take 1 tablet (10 mg total) by mouth daily as needed. 5 Active fluticasone-umec lidin-vilanter (TRELEGY ELLIPTA) 100-62.5-25 mcg blister with device Inhale 1 puff in the morning. 4 03/24/20 25 Active lisinopriL (PRINIVIL,ZESTRI L) 10 mg tablet Take 1 tablet (10 mg total) by mouth in the morning. 5 03/24/20 25 Active nitroglycerin (NITROSTAT) 0.[address] 1 tablet (0.4 mg total) under the tongue every 5 (five) minutes as needed for chest pain. 4 Active Active Problems Problem Noted Date Diagnosed Date Cervical spondylosis 01/19/2025 Neck pain 11/19/2024 Frequent falls 06/17/2024 Functional gait abnormality 06/17/2024 Chronic obstructive pulmonary disease, unspecifi ed 03/11/2024 Chronic kidney disease, stage 4 (severe) 024 Closed nondisplaced fracture of greater tuberosity of left humerus with routine healing 09/19/2023 Coronary artery disease invo lving [place] coronary artery of [place] heart without angina pectoris 09/19/2023 EDITH (generalized anxiety disorder) 09/19/2023 Traumatic complete tear of left rotator cuff 03/2024 MCI (mild cognitive impairment) 04/12/2022 Recurrent major depression in partial remission 04/12/2022 Recurrent major depressive disorder, in full rem ission 04/12/2022 Primary hypertension 05/28/2014 Abnormal results of cardiovascular function stud ies 09/30/2013 Overview (01/27/2025): MILD INFERIOR AND ANTERIOR ISCHEMIA EF 52% Chest pain 09/18/2013 Dyspnea and respiratory abnormalities 09/18/2013 Overview (01/27/2025): 66 pk/yr history of smoking. Quit in 1994, when diagnosed with NSCLC and treated with RULobectomy and XRT. Also has extensive coronary disease, with CABG. Sees cardiology at [facility]. Anxiety, HTN, CKD IIIb. PCP started albuterol for SOB, which did not help. Then Breo elipta, then advair, none of which has worked. Now on Breo and Advair and albuterol. SOB is exertional. Can only walk about 20 feet. Feels like he cannot move air in or out. Cramping in legs. Fatigued. Rests for 20-30 minutes, then can continue. Daughters say this has been gradually worsening for 2-3 years at least. Has gained 30 pounds in last year. BMI 32. Snores at night. No cough or sputum. No allergies. Used to work in [employer], but minimal exposure. No other exposures. Lungs are clear on exam. No edema. CT in December 2021 at [facility] (no images available) - report says 5 mm nodule in RLL. Radiation changes. PFT's from OSH, report says mild obstruction with no BD response. Our spirometry suggests mild obstruction without BD response. Atherosclerosis of arteries of extremities 08/25 Intermittent claudication 08/25/2012 Gastroesophageal reflux disease without esophagi tis 07/18/2012 Migraine 07/18/2012 Mixed hyperlipidemia 07/18/2012 Weakness Depression Encounters Date Type Department Care Team Description 01/27/2025 10:00 AM EDT Office Visit [facility] [address] [place] [phone] Shi Sauer PA-C Cervical spondylosis (Primary Dx) 01/27/2025 Travel 01/11/2025 7:55 AM EDT - 01/11/2025 11:59 PM EDT Hospital Encounter [facility] - Radiology [address] [place] [phone] Neck pain Discharge Disposition: Home 01/11/2025 Travel from Last 3 Months Social History Tobacco Use Types Packs/Day Years Used Date Smoking Tobacco: Former Cigarettes Smokeless Tobacco: Current Chew Tobacco Cessation:Ready to Q uit: Not Asked; Counseling Given: Not Answered Alcohol Use Standard Drinks/Week Comments Never 0 (1 standard drink = 0.6 oz pur e alcohol) Childcare Answer Date Recorded Childcare Unknown 10/02/2019 Employment Answer Date Recorded Employment Unknown 10/02/2019 Hunger Screening Answer Date Recorded Within the past 12 months we worried whether our food would run out before we got money to buy more. Never True 01/27/2025 Within the past 12 months th e food we bought just didn't last and we didn't have money to get more. Never True 01/27/2025 Purpose - Life Answer Date Recorded Purpose and direction in life Unknown Sex and Gender Information Value Date Recorded Sex Assigned at Not on file Legal Sex Male 11:04 AM EST Gender Identity Not on file Sexual Orientation Not on file Last Filed Vital Signs Vital Sign Reading Time Taken Comments Blood Pressure 129/62 01/27/2025 10:22 AM EDT Pulse 57 01/27/2025 10:22 AM EDT Temperature 36.9 C (98.4 F) 02/26/2024 1:59 PM EDT Respiratory Rate 20 01/27/2025 10:22 AM EDT Oxygen Saturation 97% 02/26/2024 1:59 PM EDT Inhaled Oxygen Concentration - - Weight 75.3 kg (166 lb) 01/27/2025 10:22 AM EDT Height 167.6 cm (5' 6 ) 01/27/2025 10:22 AM EDT Body Mass Index 26.79 01/27/2025 10:22 AM EDT Plan of Treatment Upcoming Encounters Date Type Department Care Team (Latest Contact Info) Description 02/19/2025 8:30 AM EDT Appointment [facility] - Radiology [address] [place] [address] Abiodun Cherry MD [address] [place] [address] 02/19/2025 2:58 PM EDT Hospital Encounter [facility] - Pain Procedures [address] [place] [address] Abiodun Cherry MD [address] [place] [address] 02/19/2025 2:58 PM EDT - 02/19/2025 3:05 PM EDT Surgery [facility] [address] [place] [address] Abiodun Cherry MD [address] [place] [address] INJECTION BLOCK NERVE MEDIAL BRANCH Bilat C 5/6, 6/7 [02061 (CPT )] 03/10/2025 9:45 AM EDT Office Visit [facility] [address] [place] [phone] Shi Sauer PA-C [address] [facility] [address] [place] [address] Scheduled Procedures Name Priority Associated Diagnoses Date/Ti me INJECTION BLOCK NERVE MEDIAL BRANCH Cervical spondylosis 02/19/2025 2:58 PM EDT Health Maintenance Due Date Last Done Comments Tobacco Counseling 1953 Depression Screening 1965 Adult BMI Follow Up Plan 1971 DTaP,Tdap and Td Vaccines (1 - Tdap) 1972 Zoster (Shingles) Vaccine (1 of 2) 2003 Fall Risk Screening 2018 COVID-19 Vaccine (4 - 2023-2 5 season) 2024 08/06/2021, 11/08/2020, 10/19/2020 Influenza Vaccine 04/12/2025 05/23/2021, 08/03/2020 Adult BMI Screening 01/27/2026 01/27/2025 Tobacco Screening 01/27/2026 01/27/2025 Abdominal Aortic Aneurysm (A AA) Screen Completed 10/05/2019 Medical Devices Not on file Procedures Procedure Name Priority Date/Time Associated Diagnosis Comments PROTEIN ELECTROPHORESIS, URINE Routine 01/14/2025 11:52 AM EDT Hyperlipidemia, unspecified Anemia, unspecified Chronic kidney disease, stage 3b (CMS-HCC) Atherosclerosis of coronary artery bypass graft(s) without angina pectoris Hyperkalemia Low density lipoprotein (LDL) cholesterol greater than 129 mg/dL URINALYSIS Routine 01/12/2025 9:50 AM EDT Chronic kidney disease, stage 3b (CMS-HCC) MICROALBUMIN / CREATININE URINE RATIO Routine 01/12/2025 9:50 AM EDT Chronic kidney disease, stage 3b (CMS-HCC) MAGNESIUM Routine 01/12/2025 9:39 AM EDT Chronic kidney disease, stage 3b (CMS-HCC) CBC (NO DIFF) Routine 01/12/2025 9:39 AM EDT Chronic kidney disease, stage 3b (CMS-HCC) RENAL PANEL Routine 01/12/2025 9:39 AM EDT Chronic kidney disease, stage 3b (CMS-HCC) XR SPINE CERVICAL 3 VWS OR LESS Routine 01/11/2025 8:10 AM EDT Neck pain from Last 3 Months Results * Protein electrophoresis, urine (01/14/2025 11:52 AM EDT) Urine Protein Electrophoresis Interp Unremarkable protein distribution, no monoclonal bands 01/15/2025 1:04 PM EDT [facility] Urine Collection / Unknown 01/14/2025 11:52 AM EDT 01/14/2025 11:52 AM EDT us Lisseth Toscano MD URINE ORDERABLES Final Result [facility] [address] [place] [address], * Microalbumin - Albumin: Creatinine Urine Ratio (01/12/2025 9:50 AM EDT) URINE CREATININE,RDM 132.37 mg/dL 01/12/2025 2:38 PM EDT [facility] MALB/CREAT RATIO 6.8 0.0 - 30.0 mg/g 01/12/2025 2:38 PM EDT [facility] MICROALBUMIN, URINE 0.9 0.0 - 1.9 mg/dL 01/12/2025 2:38 PM EDT [facility] Urine Urine specimen collection, clean catch / Unknown 01/12/2025 9:50 AM EDT 01/12/2025 9:50 AM EDT us Lisseth Toscano MD URINE ORDERABLES Final Result [facility] [address] [place] [address], * Urinalysis (01/12/2025 9:50 AM EDT) COLOR Yellow Yellow, Colorless 01/12/2025 2:08 PM EDT [facility] TURBIDITY Clear Clear 01/12/2025 2:08 PM EDT [facility] SPECIFIC GRAVITY 1.018 1.003 - 1.035 01/12/2025 2:08 PM EDT [facility] NITRITE Negative Negative 01/12/2025 2:08 PM EDT [facility] PH,URINE 6.0 5.0 - 8.5 01/12/2025 2:08 PM EDT [facility] LEUKOCYTE ESTERASE Negative Negative 01/12/2025 2:08 PM EDT [facility] PROTEIN Negative Negative 01/12/2025 2:08 PM EDT [facility] KETONES (URINE) Negative Negative 2:08 PM EDT [facility] UROBILINOGEN <1.1 eu/dL <1.1 eu/dL 01/12/2025 2:08 PM EDT [facility] BILIRUBIN (URINE) Negative Negative 01/12/2025 2:08 PM EDT [facility] BLOOD/HGB Negative Negative 01/12/2025 2:08 PM EDT [facility] GLUCOSE (URINE) Negative Negative 2:08 PM EDT [facility] Urine 01/12/2025 9:50 AM EDT 01/12/2025 9:50 AM EDT Lisseth Toscano MD URINE ORDERABLES Final Result [facility] [address] [place] [address], * (ABNORMAL) Renal panel (01/12/2025 9:39 AM EDT) ALBUMIN 4.1 3.2 - 5.3 g/dL 01/12/2025 2:28 PM EDT [facility] CALCIUM 9.1 8.5 - 10.5 mg/dL 01/12/2025 2:28 PM EDT [facility] PHOSPHORUS 4.0 2.4 - 4.9 mg/dL 01/12/2025 2:28 PM EDT [facility] GLUCOSE 93 65 - 99 mg/dL 01/12/2025 2:28 PM EDT [facility] BLOOD UREA NITROGEN 30(H) 5 - 27 mg/dL 01/12/2025 2:28 PM EDT [facility] CREATININE 1.87(H) 0.60 - 1.30 mg/dL 01/12/2025 2:28 PM EDT [facility] Comment:METHOD TRACEABLE TO IDMS STANDARD SODIUM 145 134 - 146 mmol/L 01/12/2025 2:28 PM EDT [facility] POTASSIUM 4.3 3.5 - 5.0 mmol/L 01/12/2025 2:28 PM EDT [facility] CHLORIDE 110(H) 98 - 109 mmol/L 01/12/2025 2:28 PM EDT [facility] CARBON DIOXIDE 26 22 - 32 mmol/L 01/12/2025 2:28 PM EDT [facility] ANION GAP 9 5 - 15 mmol/L 01/12/2025 2:28 PM EDT [facility] EGFR Non-Race Dependent 38(L) >=60 ml/min/1.7 3sq.m 01/12/2025 2:28 PM EDT [facility] Comment: Reported eGFR is based on the CKD-EPI 2020 equation that does not use a race coefficient. Blood Venous blood / Unknown Venipuncture / Unknown 01/12/2025 9:39 AM EDT 01/12/2025 9:41 AM EDT Lisseth Toscano MD LAB BLOOD ORDERABLES Final Resul t [facility] [address] [place] [address], * (ABNORMAL) CBC without diff (01/12/2025 9:39 AM EDT) WBC 5.5 4 - 11 x10E9/L 01/12/2025 2:07 PM EDT [facility] RBC Count 3.75(L) 4.1 - 5.7 X10E12/L 01/12/2025 2:07 PM EDT [facility] Hemoglobin 11.5(L) 13 - 17 g/dL 01/12/2025 2:07 PM EDT [facility] Hematocrit 34.1(L) 39 - 50 % 01/12/2025 2:07 PM EDT [facility] MCV 91 80 - 100 fL 01/12/2025 2:07 PM EDT [facility] MCH 30.6 27 - 34 pg 01/12/2025 2:07 PM EDT [facility] MCHC 33.6 32 - 36 g/dL 01/12/2025 2:07 PM EDT [facility] RDW 14.9 11.5 - 15 % 01/12/2025 2:07 PM EDT [facility] Platelet Count 122(L) 150 - 450 X10E9/L 01/12/2025 2:07 PM EDT [facility] MPV 7.5 7 - 12 fL 01/12/2025 2:07 PM EDT [facility] Blood Venous blood / Unknown Venipuncture / Unknown 01/12/2025 9:39 AM EDT 01/12/2025 9:41 AM EDT us Lisseth Toscano MD LAB BLOOD ORDERABLES Final Resul t [facility] [address] [place] [address], [place] [phone] * Magnesium (01/12/2025 9:39 AM EDT) MAGNESIUM 2.0 1.8 - 2.6 mg/dL 01/12/2025 2:28 PM EDT [facility] Blood Venous blood / Unknown Venipuncture / Unknown 01/12/2025 9:39 AM EDT 01/12/2025 9:41 AM EDT us Lisseth Toscano MD LAB BLOOD ORDERABLES Final Resul t [facility] [address] [place] [address], [place] [phone] * X-ray spine cervical 3 views or less (01/11/2025 8:10 AM EDT) Anatomical Region Laterality Modality MSK, Neuro, Spine, C-spine N/A Compu dontae Radiography 01/12/2025 12:5 6 AM EDT Narrative 01/12/2025 12:57 AM EDT XR SPINE CERVICAL 3 VWS OR LESS INDICATION: Neck pain. FINDINGS: Straightening of the normal cervical spine lordotic curvature. The vertebral body heights are preserved. There are moderate to severe degenerative changes at C5-C6 and C6-C7 with intervertebral disc space height loss, endplate sclerosis, and osteophyte formation. The atlantoaxial space is intact. Posterior elements intact. IMPRESSION: 1. No acute findings. 2. Moderate to severe degenerative changes at C5-C6 and C6-C7 as above. Finalized by Oh Wild MD on 01/12/2025 12:57 AM Procedure Note Oh Wild MD - 01/12/2025 XR SPINE CERVICAL 3 VWS OR LESS INDICATION: Neck pain. FINDINGS: Straightening of the normal cervical spine lordotic curvature. The vertebral body heights are preserved. There are moderate to severe degenerative changes at C5-C6 and C6-C7 withintervertebral disc space height loss, endplate sclerosis, and osteophyteformation. The atlantoaxial space is intact. Posterior elements intact. IMPRESSION: 1. No acute findings. 2. Moderate to severe degenerative changes at C5-C6 and C6-C7 as above. Finalized by Oh Wild MD on 01/12/2025 12:57 AM Susan Watson ANKLE PATCH MOLDER-DELIVERY AGENT IMG DIAGNOSTIC IMAGING ORDERABLES Final Result from Last 3 Months Insurance [employer] Care Teams Scheduler Maintenance Relationship Specialty Start Date End Date Susan Watson, GERARDO-DELIVERY AGENT PCP - General Nurse Practitioner 01/11/25
--- OUTSIDE RECORDS SUMMARY | 2025-02-18 07:11 | XMS_ITS | Encounter Summary ---
Author Organization [facility] Address [facility] [place] [address] Care Team Providers Care Control Officer Name Role Phone Thomas Hurtado MD Unavailable Source Comments In the event this information is protected by the Federal Confidentiality of Alcohol and Drug AbusePatient Records regulations: The Federal rules restrict any use of the information to criminally investigate or prosecute any alcohol or drug abuse patient.[facility] Encounter Details Date Type Department Care Team ([facility] st Contact Info) Description 02/06/2022 [place] [address] Provider, Ccf Questionnaire Submission Social History Tobacco Use Types Packs/Day Years Used Date Smoking Tobacco: Never Smokeless Tobacco: Current Chew PHQ-2 Answer Date Recorded PHQ-2 score 6 12/22/2021 Area Deprivation Index Answer Date Brandon rded National Score (1-100), lower number is lower ri sk 87 01/02/2022 State Score (1-10), lower number is lower risk N ot on file 01/02/2022 Data from: https://www.neighborhoodatlas.medicine.[facility].edu/. Last address used for calculation [address] 01/02/2022 Sex and Gender Information Value Date [...] 11:00 AM EDT Office Visit Neurology [address] [place] [address] Ebony Henderson DO [address] [place] [address] 6 month follow up documented as of this encounter Visit Diagnoses Not on filedocumented in this encounter Care Teams Control Officer Relationship Specialty Start Date End Date Thomas Hurtado MD [address] [place] [address] NI Referring Team Psychiatry 12/21/21 documented as of this encounter
--- OUTSIDE RECORDS SUMMARY | 2025-02-18 07:11 | XMS_ITS | Encounter Summary ---
Author Organization [facility] Address [address] [place] [address] Care Team Providers Care Car Hiker Name Role Phone Shaikh ION Grimes Primary Care Provider [phone] Shaikh ION Grimes Unavailable [phone] Jose Beckford MD Primary Care Provider [phone] Cherelle Coronado NP Unavailable Vannessa Russell MA Unavailable [phone] Encounter Details Date Type Department Care Team (Late st Contact Info) Description 03/11/2024 Orders Only [facility] [address] [place] [address] Shaikh Grimes MD [address] [place] [address] Social History Tobacco Use Types Packs/Day Years [...] How often do you attend chur or buddhist services? Never 07/22/2023 Do you belong to any clubs o r organizations such as baptism groups, unions, fraternal or athletic groups, or [...] Recorded Patient Health Questionnaire-2 Score 0 03/11/2024 [facility] - Occupational Stress [...] place to sleep or slept in a nursing home (including now)? No 07/22/2023 Sex and Gender Information Value Date Recorded Sex Assigned at Not on file Legal Sex Male 10:05 PM EDT Gender Identity Not on file Sexual Orientation Not on file documented as of this encounter Functional Status * Over the past 2 weeks, how often have you been bothered by any of the following problems? Question Answer Date of Assessment Author Little interest or pleasure in doing things Not at all 03/11/2024 2:11 PM EDT Vannessa Russell M A Feeling down, depressed, or hopeless Not at all 03/11/2024 2:11 PM EDT Vannessa Russell M A Patient Health Questionnaire -2 Score 0 03/11/2024 2:11 PM EDT Vannessa Russell M A documented as of this encounter Plan of Treatment Upcoming Encounters Date Type Department Care Team (Late st Contact Info) Description 03/01/2025 1:40 PM EDT Office Visit [facility] [address] [place] [address] Susan Watson NP [address] [place] [address] documented as of this encounter Visit Diagnoses Not on filedocumented in this encounter Care Teams Car Hiker Relationship Specialty Start Date End Date Shaikh Grimes MD [address] [place] [phone] PCP - General Internal Medicine 08/12/22 06/08/24 Shaikh Grimes MD [address] [place] [phone] PCP - [employer] 10/11/23 08/11/24 Jose Beckford MD [address] [place] [phone] PCP - General Family Medicine 06/09/24 Cherelle Coronado NP [address] [place] [phone] Nurse Practitioner Family Medicine 06/09/24 Vannessa Russell, MINESH [address] [place] [address] Family Medicine 06/17/24 06/18/24 documented as of this encounter
--- OUTSIDE RECORDS SUMMARY | 2025-02-18 07:11 | XMS_ITS | Encounter Summary ---
Author Organization [facility] Address [address] [place] [address] Care Team Providers Care Sas Architect Name Role Phone Shaikh ION Grimes Primary Care Provider [phone] Shaikh ION Grimes Unavailable [phone] Jose Beckford MD Primary Care Provider [phone] Cherelle Coronado NP Unavailable [phone] Vannessa Russell MA Unavailable [phone] Encounter Details Date Type Department Care Team (Late st Contact Info) Description 07/29/2023 Clinisync Result Encounter [facility] Unsolicited [...] often do you attend chur ch or caodaism services? Never 07/22/2023 Do you belong to any clubs o r organizations such as baptist groups, unions, fraternal or athletic groups, or [...] medical care, and heating? Somewhat hard 07/22/2023 [facility] - [...] Office Visit [facility] [address] [place] [address] Susan Watson NP [address] [place] [address] documented as of this encounter Procedures Procedure Name Priority Date/Time Associated Diagnosis Comments XR SHOULDER 2+ VIEWS LEFT 07/29/2023 4:01 PM EST documented in this encounter Results * XR shoulder 2+ views left (07/29/2023 4:01 PM EST) Anatomical Region Laterality Modality Upper Extremities, Shoulder Left Radi ographic Imaging 07/29/2023 4:01 PM EST Narrative 07/29/2023 4:04 PM EST The [address] [address] XRay Report Signed Patient: KEL CASTILLO Jr. MR#: [id number] : 1955 Acct:[id number] Age/Sex: 68 / M ADM Date: 07/29/23 Loc: RAD Attending Dr: Carlyle Zhang M.D. Ordering Physician: Carlyle Zhang M.D. Date of Service: 07/29/23 Procedure(s): XR shoulder LT min 2V Accession Number(s): [id number] cc: Carlyle Zhang M.D.; Shaikh Krish Grimes The [address] [address] Patient Name: KEL CASTILLO MRN: [id number] date: 1955 Sex: M Assigned Patient Location: [facility] Current Patient Location: [facility] Accession/Order Number: [id number] Exam Date: 07/29/2023 11:20 Report Date: 07/29/2023 16:01 At the request of: CARLYLE ZHANG Procedure: XR shoulder LT min 2V EXAM: XR shoulder LT min 2V HISTORY: Closed Nondisplaced Fracture Of Proximal Left Humerus S42.29. COMPARISON: Left shoulder study dated 07/10/2023. TECHNIQUE: 3 views of the left shoulder were obtained. FINDINGS: No convincing evidence of acute fracture or dislocation. Glenohumeral relationship appears grossly unremarkable. Sjfg-gq-moymjbom degenerative changes about the acromioclavicular joint. Soft tissues are grossly within normal limits. Postoperative sternotomy wires and clips are present. XR/XR shoulder LT min 2V IMPRESSION: Left shoulder study fails to demonstrate definite acute fracture or dislocation. Follow-up as needed. Electronically authenticated by: FABIAN JOSHUA Date: 07/29/2023 16:01 Dictated By: Fabian Joshua M.D. 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 Ordering Physician: Carlyle Zhang M.D. Date of Service: 07/29/23 Procedure(s): XR shoulder LT min 2V Accession Number(s): [id number] cc: Carlyle Zhang M.D.; Shaikh Krish Grimes [place] [id number] Patient Name: KEL CASTILLO MRN: [id number] date: 1955 Sex: M Assigned Patient Location: RAD Current Patient Location: RAD Accession/Order Number: [id number] Exam Date: 07/29/2023 11:20 Report Date: 07/29/2023 16:01 At the request of: CARLYLE ZHANG Procedure: XR shoulder LT min 2V EXAM: XR shoulder LT min 2V HISTORY: Closed Nondisplaced Fracture Of Proximal Left Humerus S42.29. COMPARISON: Left shoulder study dated 07/10/2023. TECHNIQUE: 3 views of the left shoulder were obtained. FINDINGS: No convincing evidence of acute fracture or dislocation. Glenohumeral relationship appears grossly unremarkable. Pnkh-xm-feydudsi degenerative changes about the acromioclavicular joint. Soft tissues are grossly within normal limits. Postoperative sternotomy wires and clips are present. XR/XR shoulder LT min 2V IMPRESSION: Left shoulder study fails to demonstrate definite acute fracture or dislocation. Follow-up as needed. Electronically authenticated by: FABIAN JOSHUA Date: 07/29/2023 16:01 Dictated By: Fabian Joshua M.D. Signed By:07/29/23 1604 DD/ 1601 TD/TT: Mortgage Banker: us Generic External Data Provider IMG XR PROCEDURES Final Result documented in this encounter Visit Diagnoses Not on filedocumented in this encounter Care Teams Sas Architect Relationship Specialty Start Date End Date Shaikh Grimes MD [address] [place] [address] PCP - General Internal Medicine 08/12/22 06/08/24 Shaikh Grimes MD [address] [place] [address] PCP - [employer] 10/11/23 08/11/24 Jose Beckford MD [address] [place] [address] PCP - General Family Medicine 06/09/24 Cherelle Coronado NP [address] [place] [phone] Nurse Practitioner Family Medicine 06/09/24 Vannessa Russell, MINESH [address] [place] [address] Family Medicine 06/17/24 06/18/24 documented as of this encounter
--- OUTSIDE RECORDS SUMMARY | 2025-02-18 07:11 | XMS_ITS | CCD ---
Author Organization [facility]ini[facility] Care Team Providers Care Customizer Name Role Phone AMBURN, JOMAR Unavailable Unavailable [...] Unavailable Nadira Choi Unavailable Lisseth Toscano Unavailable Genesis, Thomas Unavailable MOSES GRIMESIKH H Consulting Unavailable LINKWALa, MEDINA H Primary Care Unavailable FAWWALa, MEDINA H Admitting Unavailable MOSES GRIMESIKH H Attending Unavailable CORNELIO, MEDINA H Primary Care Unavailable VALERIE, DR FLORES Attending Unavailable VALERIE, DR FLORES Consulting Unavailable VALERIE, DR FLORES Admitting Unavailable LISSETH TOSCANO Admitting Unavailable LISSETH TOSCANO Attending Unavailable LISSETH TOSCANO Consulting Unavailable NON STAFF Primary Care Unavailable Saffle, Lucy N Admitting Unavailable Lucy Cope Attending Unavailable Corona Monroe Admitting Unavailable Corona Monroe Attending Unavailable Daria Cardoza Primary Care Unavailable Cornelio [facility] Primary Care Provider [phone] Genesis LEMON, Thomas Unavailable EBONY KAUFMAN Referring Unavailable Cornelio [facility], [facility] Unavailable Analy LEMON, Jose Primary Care Provider Ivonne HANGERSMITH, Jayy Unavailable [phone] Vannessa Russell MA Unavailable Unavailable Cornelio [facility], [facility] Primary Care Provider Ivonne HANGERSMITH, Jayy Unavailable EBONY TRENT Attending Unavailable SELF Referring Unavailable MISTY POLO Attending Unavailable EBONY TRENT Referring Unavailable EBONY TRENT Attending Unavailable SELF Referring Unavailable ELTAHAWCinda, EHAB Attending Unavailable SUSAN WATSON Attending Unavailable SUSAN WATSON Attending Unavailable SUSAN WATSON Attending Unavailable [facility] Attending Unavailable JAYY CORONADO Attending Unavaileverardo e JAYY CORONADO Attending Unavailabl e Rigobertohmichael NATUROPATHIC DOCTOR-MÓNICA, Susan Xavi Primary Care Provider AMADOU MALDONADO Attending Unavailable [facility] Primary Care Unavailable AMADOU MALDONADO Attending Unavailable AMADOU MALDONADO Referring Unavailable [facility] Primary Care Unavailable BAKKATEYS, AZIZ Referring Unavailable [facility] Primary Care Unavailable JAYY CORONADO Referring Unavaila ble [facility] Primary Care Unavailable ELLARISA, EHAB A Referring Unavailable [facility] Primary Care Unavailable SUSAN WATSON J Referring Unavailable AICRUDDY, SUSAN J Primary Care Unavailable BAKHOUS, AZIZ Referring Unavailable AICHMICHAEL, SUSAN J Primary Care Unavailable BAKHOUS, AZIZ Referring Unavailable AICHHOLKarlie, SUSAN J Primary Care Unavailable DARRICK SAUER Attending Unavailable SUSAN WATSON Referring Unavailable SUSAN WATSON Primary Care Unavailable Medications Current Medications Medication Drug Class(es) Dates Sig (Normalized) Sig (Original) [id number] 200 actuat albuterol 0.09 mg/actuat metered dose inhaler (20 sources) beta2-Adrenergic Agonist Start: 02-26-2024 take 2 puff(s) by inhalation every four hours as needed for wheezing albuterol (PROVENTIL HFA;VENTOLIN HFA) 90 mcg/actuation inhaler Indications: Acute bronchitis, unspecified organism Inhale 2 puffs every 4 (four) hours as needed for wheezing. 18 g 02/26/2024 Active Start: 12-02-2021 End: 10-12-2024 take 1 puff(s) by mouth every four hours as needed albuterol HFA (PROVENTIL HFA, VENTOLIN HFA) 90 mcg/actuation inhaler INHALE 1 PUFF BY MOUTH EVERY 4 HOURS NEEDED 12/02/2021 Active Start: 09-13-2020 Albuterol Sulf ate 90 mcg/actuation HFA aerosol inhaler Active 90 MCG INHALATION Q4H as needed for Shortness Of Breath September 13, 2020 1:00am Start: 08-01-2020 take [...] 4 (four) hours if needed for wheezing Active take 1 puff(s) by mo uth every four hours as needed Albuterol Sulfate HFA 108 (90 Base) MCG/ACT INHALE 1 PUFF BY MOUTH EVERY 4 HOURS NEEDED for 30 PRN Active Comment on above: albuterol sulfate HF A 90 mcg/actuation aerosol inhaler INHALE 1 PUFF BY MOUTH EVERY 4 HOURS NEEDED INHALE 1 PUFF BY MATT TH EVERY 4 HOURS NEEDED amLODIPine 5 mg oral tablet (20 sources) Dihydropyridine Calcium Channel Kelsy Start: 03-11-20 End: 04-06-20 take 1 tablet by mouth once amLODIPine (Norvasc) 5 MG tablet Indications: Primary hypertension (CMS/HCC) Take 1 tablet (5 mg) by mouth every 12 (twelve) hours 180 tablet 1 12/24/2024 03/24/2025 Active Start: 10-15-2023 take 1 tablet by matt th twice daily Amlodipine 5 mg tablet Active 5 MG PO Twice daily October 15, 2023 4:56pm Start: 10-22-2019 End: 12-18-2023 take 1 tablet by mouth once daily Amlodipine 5 mg Tablet Discontinued 5 MG PO Daily October 22, 2019 12:00am October 15, 2023 5:03pm take 1 tablet by matt th every twenty-four hours amLODIPine Besylate 10 MG 1 tablet Orally Once a day for 90 day(s) Active Comment on above: amlodipine 5 mg tabl et TAKE 1 TABLET BY MOUTH EVERY DAY aspirin 81 mg delayed release oral tablet (20 sources) Platelet Aggregation Inhibitor, Nonsteroidal Anti-inflammatory Drug Start: 10-22-2019 End: 03-24-2025 take 1 tablet by mouth once daily in the morning aspirin 81 mg Take 1 tablet (81 mg total) by mouth every morning. TAKE 1 TABLET (81 MG) BY MOUTH IN THE MORNING 12/24/2024 03/24/2025 Active aspirin, enteric coated (ASPIRIN, ENTERIC COATED) 81 mg EC tablet q 24 HR. Active take 1 tablet by mouth once shonna y Aspirin Adult Low Dose 81 MG 1 tablet Orally Once a day Active Comment on above: q 24 HR. atorvastatin 80 mg oral tablet (20 sources) HMG-CoA Reductase Inhibitor Start: 0 End: take 1 tablet by mouth once daily Atorvastatin 80 mg Tablet Active 80 MG PO Daily October 22, 2019 12:00am Comment on above: atorvastatin 80 mg t ablet TAKE 1 TABLET BY MOUTH EVERY DAY baclofen 10 mg oral tablet (13 sources) gamma-Aminobutyric Acid-ergic Agonist Start: take 1 tablet by mouth once daily as needed baclofen (LIORESAL) 10 mg tablet Take 1 tablet (10 mg total) by mouth daily as needed. 12/24/2024 Active Start: 11-19-2024 End: 01-08-2025 baclofen (Lioresal) 10 MG ta blet Indications: Neck pain Take 1 tablet (10 mg) by mouth as needed at bedtime for muscle spasms for up to 15 days 15 tablet 12/24/2024 Active 24 hr buPROPion hydrochloride 300 mg extended release oral tablet (20 sources) Aminoketone Start: 03-11-2024 End: 04-06-2025 take 1 tablet by mouth every twenty-four hours in the morning buPROPion XL (Wellbutrin XL) 300 MG 24 hr tablet Indications: Recurrent major 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) (CMS/HCC) Take 1 tablet (300 mg) by mouth in the morning. Do not crush, chew, or split. 90 tablet 1 12/24/2024 03/24/2025 Active Start: 10-15-2023 take 1 tablet by matt th once daily in the morning Start: 09-19-2023 End: 12-18-2023 take 1 tablet by mouth every twenty-four [...] MORNING 0 12/04/2021 04/10/2022 Discontinued Start: 10-22-2019 End: 10-15-2023 take 1 tablet by mouth once daily Bupropion Hcl 100 mg Tablet Sustained-Release 12 Hr Discontinued 100 MG PO Daily October 22, 2019 12:00am October 15, 2023 4:57pm Start: 10-22-2019 End: 10-15-2023 take 1 tablet by mouth once daily Bupropion Hcl 200 mg Tablet Sustained-Release 12 Hr Discontinued 200 MG PO Daily October 22, 2019 12:00am October 15, 2023 4:57pm Comment on above: bupropion HCl XL 300 mg 24 hr tablet, extended release TAKE 1 TABLET BY MOUTH EVERY DAY IN THE MORNING TAKE 1 TABLET BY MATT TH EVERY DAY IN THE MORNING busPIRone hydrochloride 15 mg oral tablet (20 sources) Start: 10-22-2019 End: 03-24-2025 take 1 tablet by mouth twice daily Buspirone 15 mg tablet Active 15 MG PO Twice daily September 13, 2020 1:00am Comment on above: buspirone 15 mg tabl et TAKE 1 TABLET BY MOUTH TWICE DAILY Centrum Silver 50+Men - (20 sources) Centrum Silver 5 0+Men - as directed Orally Active famotidine 20 mg oral tablet (20 sources) Histamine-2 Receptor Antagonist Start: 10-22-2019 End: 03-24-2025 take 1 tablet by mouth once daily at bedtime as needed Comment on above: famotidine 20 mg tab let TAKE 1 TABLET BY MOUTH EVERY DAY AT BEDTIME NEEDED fenofibrate 43 mg oral capsule (20 sources) Peroxisome Proliferator Receptor alpha Agonist Start: 10-22-2019 End: 04-06-2025 take 1 capsule by mouth twice daily Fenofibrate Micronized 43 mg Capsule Active 43 MG PO Twice daily October 22, 2019 12:00am take 1 capsule by [facility] once daily before breakfast fenofibrate micronized (ANTARA) 43 mg capsule Take 1 capsule (43 mg total) by mouth every morning before breakfast. Active Comment on above: Take 43 mg by mouth twice daily. ferrous sulfate 325 mg oral tablet (1 source) Start: 01-19-2025 take 1 tablet by mouth once daily Ferrous Sulfate 325 mg (65 mg iron) tablet Active 325 MG PO daily 90 January 19, 2025 12:00am Fish Oils (20 sources) take 1 capsule [...] / vilanterol 0.025 mg/actuat dry powder inhaler (20 sources) Anticholinergic, Corticosteroid, beta2-Adrenergic Agonist Start: 02-18-20 End: 03-24-20 take 1 puff(s) by inhalation in the morning fluticasone-ume clidin-vilanter (TRELEGY ELLIPTA) 100-62.5-25 mcg blister with device Inhale 1 puff in the morning. 02/18/2024 03/24/2025 Active Start: 02-18-2024 End: 03-24-2025 take 1 puff(s) by mouth once daily, then take 1 puff(s) by mouth once daily Qlgrelxptvh-Fuamqvejc-Advkou (Trelegy Ellipta) 100-62.5-25 MCG/ACT aerosol powder Indications: Chronic obstructive pulmonary disease, unspecified COPD type (CMS/HCC) Inhale 1 puff Daily Rinse mouth after use. Inhale 1 puff Daily 180 each 1 12/24/2024 03/24/2025 Active Start: 10-15-2023 Fluticasone-Um eclidin-Vilanter (Trelegy Ellipta) 100-62.5-25 mcg blister with device Active 1 INH INHALATION Daily October 15, 2023 1:00am Start: 09-19-2023 End: 12-18-2023 take 1 puff(s) by inhalation in the morning Xqvowyseckb-Vafooynlx-Ngbbvx (Trelegy Ellipta) 100-62.5-25 MCG/ACT aerosol powder Indications: Chronic obstructive pulmonary disease, unspecified COPD type (CMS/HCC) Inhale 1 puff in the morning. 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 Do not crush or chew.. 90 tablet 0 09/19/2023 12/18/2023 Active Start: 10-22-2019 End: 04-06-2025 take 1 tablet by mouth once daily, then take 1 tablet by mouth every twenty-four hours Isosorbide Mononitrate 60 mg Tablet Extended Release 24 Hr Active 60 MG PO Daily October 22, 2019 12:00am Comment on above: isosorbide mononitra te ER 60 mg tablet,extended release 24 hr TAKE 1 TABLET BY MOUTH EVERY MORNING lisinopril 10 mg oral tablet (20 sources) Angiotensin Converting Enzyme Inhibitor Start: 12-25-19 End: 03-24-20 take 1 tablet by mouth in the morning lisinopriL (PRINIVIL,ZESTRIL) 10 mg tablet Take 1 tablet (10 mg total) by mouth in the morning. 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 180 tablet 0 09/19/2023 12/18/2023 Active Start: 10-22-2019 End: 10-15-2023 take 1 tablet by mouth once daily Metoprolol Succinate 50 mg tablet extended release 24 hr Active 50 MG PO Daily October 15, 2023 1:00am take 1 tablet by matt th twice daily metoprolol succinate ER (TOPROL XL) 50 mg 24 hr tablet metoprolol succinate ER 50 mg tablet,extended release 24 hr TAKE 1 TABLET BY MOUTH TWICE DAILY Active take 1 capsule by mo kyh twice daily Metoprolol Succinate 50 MG 1 capsule Orally twice a day Active Comment on above: metoprolol succinate ER 50 mg tablet,extended release 24 hr TAKE 1 TABLET BY MOUTH TWICE DAILY Multivitamin preparation (2 sources) Start: 09-13-19 take 1 tablet by mouth once daily Multivitamin Active 1 TAB PO Daily September 13, 2020 1:00am Multivitamin Tablet (2 sources) Start: 09-13-19 take 1 tablet by mouth once daily Multivitamin Tablet Active 1 TAB PO Daily September 13, 2020 1:00am Nitro Sublingual 0.4 0.4mg (20 sources) Nitro Sublingual 0.4 0.4mg 1 Sublingual Every 5min x3 PRN Active nitroglycerin 0.4 mg subling ual tablet (20 sources) Nitrate Vasodilator Start: 10-15-2023 End: 10-15-2023 Start: 10-22-2019 End: 06-17-2024 nitroglycerin (NITROSTAT) 0. [address] 1 tablet (0.4 mg total) under the tongue every 5 (five) minutes as needed for chest pain. 06/17/2024 Active nitroglycerin toscano blingual (NITROQUICK) 0.4 mg SL tablet nitroglycerin 0.4 mg sublingual tablet Active Comment on above: nitroglycerin 0.4 mg sublingual tablet OLANZapine 5 mg oral tablet (20 sources) Atypical Antipsychotic Start: End: take 1 tablet by mouth at bedtime OLANZapine (ZyPREXA) 5 MG tablet Indications: EDITH (generalized anxiety disorder) (CMS/HCC) Take 1 tablet (5 mg) by mouth at bedtime 30 tablet 1 01/19/2025 02/18/2025 Active Start: 12-01-2024 End: 03-24-2025 take 1 tablet by mouth at bedtime OLANZapine (ZyPREXA) 2.5 MG tablet Indications: EDITH (generalized anxiety disorder) (CMS/HCC) Take 1 tablet (2.5 mg) by mouth at bedtime 90 tablet 1 12/24/2024 01/19/2025 Discontinued (Ineffective) Start: 09-19-2023 End: 10-27-2024 take 1 tablet by mouth once daily Start: 10-22-2019 End: 10-12-2024 take 1 tablet by mouth once daily at bedtime Olanzapine 5 mg Tablet Discontinued 5 MG PO Daily at bedtime October 22, 2019 12:00am October 15, 2023 5:01pm Comment on above: olanzapine 5 mg tabl et TAKE 1 TABLET BY MOUTH EVERY DAY AT BEDTIME omega 8-eom-yjy-fish oil (FISH OIL) 100-160-1,000 mg cap (13 sources) omega 3-dha-epa- fish oil (FISH OIL) 100-160-1,000 mg cap Take by mouth. Active omega 3-dha-epa- fish oil (FISH OIL) 100-160-1,000 mg cap Take by mouth. 0 Active Comment on above: Take by mouth. [place]-3 Fatty Acids (2 sources) Start: 09-13-2020 take 1000 mg by mouth once daily [place]-3 Fatty Acids Active 1000 MG PO Daily September 13, 2020 1:00am [place]-3 Fatty Acids Capsule (2 sources) Start: 09-13-2020 take 1 capsule by mouth once daily [place]-3 Fatty Acids Capsule Active 1000 MG PO Daily September 13, 2020 1:00am Paxlovid 10 x 150 MG & 10 x 100MG (1 source) Start: 03-07-2022 Paxlovid 10 x 150 MG & 10 x 100MG as directed Orally Twice a day for 5 days Feb, Active predniSONE 20 mg oral tablet (3 sources) Start: 01-19-2025 predniSONE (Deltasone) 20 MG tablet Indications: Neck pain Twice a day for 3 days, then once a day for 3 days, take with food 9 tablet 01/19/2025 Active Start: 02-26-2024 predniSONE (DE LTASONE) 20 mg tablet 60mg x3d, 40mg x3d, 20mg x3d, 10mg x4d 20 tablet 02/26/2024 Active sertraline 100 mg oral tablet (20 sources) Serotonin Reuptake Inhibitor Start: 03-11-2024 End: 04-06-2025 take 2 tablets by mouth once daily sertraline (Zoloft) 100 MG tablet Indications: Recurrent major 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) (CMS/HCC) , EDITH (generalized anxiety disorder) (CMS/HCC) Take 2 tablets (200 mg) by mouth Daily 180 tablet 1 12/24/2024 03/24/2025 Active Start: 10-15-2023 take 1.5 tablets by mouth once daily Start: 10-15-2023 take 1.5 tablets by mouth once daily Start: 09-19-2023 End: 12-18-2023 take 2 tablets by mouth at bedtime sertraline (Zoloft) 100 MG tablet Indications: Major Depressive Disorder Take 2 tablets (200 mg) by mouth at bedtime 180 tablet 0 09/19/2023 12/18/2023 Active Start: 10-22-2019 End: 10-15-2023 take 1 tablet by mouth once daily Sertraline 100 mg Tablet Discontinued 100 MG PO Daily October 22, 2019 12:00am October 15, 2023 5:02pm take 1.5 tablets by mouth once daily [...] HandiHaler device Inhalation Once a day Active traZODone hydrochloride 100 mg oral tablet (20 sources) Serotonin Reuptake Inhibitor Start: 10-22-2019 End: 05-12-2025 take 1 tablet by mouth once daily at bedtime Trazodone 100 mg tablet Active 100 MG PO Daily at bedtime March 31, 2024 12:00am Comment on above: Take 100 mg by [...] Drug Class(es) Dates Sig (Normalized) Sig (Original) amoxicillin 875 mg / clavulanate 125 mg oral tablet (3 sources) Penicillin-class Antibacterial Start: 04-09-2023 End: 10-15-2023 take 1 tablet by mouth twice daily Amoxicillin-Pot Clavulanate 875-125 mg tablet Discontinued 1 TAB PO Twice daily April 09, 2023 12:00am October 15, 2023 4:56pm clopidogrel 75 mg oral tablet (20 sources) [id number] Platelet Inhibitor Start: 10-22-2019 End: 03-24-2025 take 1 tablet by mouth once daily Clopidogrel 75 mg Tablet Discontinued 75 MG PO Daily October 22, 2019 12:00am March 31, 2024 1:03pm Comment on above: clopidogrel 75 mg ta blet TAKE 1 TABLET BY MOUTH AT BEDTIME doxepin hydrochloride 50 mg oral capsule (18 sources) Tricyclic Antidepressant Start: 12-04-2021 take 1 capsule by mouth every twenty-four hours Doxepin HCl 100 MG 1 capsule at bedtime Orally Once a day for 30 days Nov, Active Start: 12-04-2021 take 1 capsule by [facility] every twenty-four hours Doxepin HCl 25 MG 1 capsule at bedtime Orally Once a day for 30 day(s) Nov, Active Start: 12-04-2021 End: 08-15-2022 doxepin capsule 50 mg 30 actuat fluticasone furoate 0.1 mg/actuat / vilanterol 0.025 mg/actuat dry powder inhaler (17 sources) Corticosteroid, beta2-Adrenergic Agonist Start: 09-13-2020 End: 10-15-2023 Fluticasone Furoate-Vilanterol (Breo Ellipta) 100-25 mcg/dose blister with device Discontinued 1 INH INHALATION Daily September 13, 2020 1:00am October 15, 2023 5:02pm Start: 08-01-2020 End: 02-09-2022 take 1 puff(s) by mouth once daily BREO ELLIPTA 100-25 mcg/dose inhaler INHALE 1 PUFF BY MOUTH EVERY DAY 0 11/05/2021 02/09/2022 Discontinued Start: 08-01-2020 Comment on above: INHALE 1 PUFF BY MATT EVERY DAY methylPREDNISolone (9 sources) Corticosteroid Start: 12-22-2021 End: 08-15-2022 methylPREDNISolone (MEDROL, TEAGAN,) 4 mg Dose-Pack Take as instructed 1 Package 0 12/22/2021 08/15/2022 Discontinued Start: 12-22-2021 methylPREDNISo lone (MEDROL, TEAGAN,) 4 mg Dose-Pack Take as instructed 1 Package 0 12/22/2021 Active Comment on above: Take as instructed Multivitamins-Minerals -Lutein (MULTIVITAMIN 50 PLUS) tab (9 sources) End: 08-15-2022 Hgozxxoaqttys-Ykuxgcqc-Mnre in (MULTIVITAMIN 50 PLUS) tab Take 1 tablet by mouth once daily. 0 08/15/2022 Discontinued Multivitamins-Mi nerals-Lutein (MULTIVITAMIN 50 PLUS) tab Take 1 tablet by mouth once daily. 0 Active Comment on above: Take 1 tablet by matt once daily. traMADol hydrochloride 50 mg oral tablet (4 sources) Opioid Agonist Start: End: take 0.5-1 tablets by mouth every six hours as needed for pain Tramadol (Ultram) 50 mg tablet Discontinued 50 MG PO Q6H as needed for pain 30 September 30, 2020 1:00am October 15, 2023 5:00pm 1/2 - 1 tab po q 6 hours prn pain Problems Active Problems Problem Classification Problem Date Documented Date Episodic/Chronic Abdominal hernia (4 sources) Hernia of anterior abdominal wall; Translations: [Ventral hernia without obstruction or gangrene] 09-30-2020 Episodic Comment on above: Problem List clean-u p per request of Phys. STU Cmte Abdominal pain (1 source) Unspecified abdominal pain; Translations: [Unspecified abdominal pain] Onset: 04-09-2023 Episodic Acute and unspecified renal failure (2 sources) Acute kidney failure, unspecified; Translations: [KELLIE (acute kidney injury) N17.9] Onset: 05-23-2021 Resolved: 05-23-2021 Episodic Anxiety disorders (20 sources) Generalized anxiety disorder; Translations: [Generalized anxiety disorder] Onset: 03-13-2023 09-19-2023 Chronic Cancer of bronchus; lung (20 sources) History of malignant neoplasm of thoracic cavity structure; Translations: [Personal history of other malignant neoplasm of bronchus and lung] Onset: 02-27-2022 Resolved: 02-27-2022 Episodic Chronic kidney disease (20 sources) Chronic kidney disease stage 3; Translations: [Chronic kidney disease, stage 3 (moderate)] Onset: 09-19-2023 09-19-2023 Chronic Chronic kidney disease (15 sources) Chronic kidney disease; Translations: [Chronic kidney disease, stage 3b] Onset: 05-23-2021 Resolved: 05-23-2021 Chronic obstructive pulmonary disease and bronchiectasis (20 [...] Chronic Coronary atherosclerosis and other heart disease (20 sources) Atherosclerotic heart disease of [place] coronary artery without angina pectoris; Translations: [Coronary arteriosclerosis] Onset: 07-27-2022 Chronic Deficiency and other anemia (3 sources) Anemia; Translations: [Anemia, unspecified] 10-15-2023 Episodic Delirium, dementia, and amnestic and other cognitive disorders (3 sources) Dementia associated with another disease; Translations: [Dementia in other diseases classified elsewhere with behavioral disturbance] Chronic Disorders of lipid metabolism (20 sources) Hyperlipidemia; Translations: [Hyperlipidemia, unspecified] Onset: 07-18-2012 Resolved: 05-23-2021 Chronic Diverticulosis and diverticulitis (3 sources) Diverticulitis of sigmoid colon; Translations: [Diverticulitis of large intestine without perforation or abscess without bleeding] 04-17-2023 Chronic Esophageal disorders (20 sources) Gastroesophageal reflux disease without esophagitis; Translations: [Gastro-esophageal reflux disease without esophagitis] Onset: 07-18-2012 09-19-2023 Chronic Essential hypertension (20 sources) Essential hypertension; Translations: [Essential (primary) hypertension] Onset: 05-28-2014 Resolved: 12-26-2021 Chronic Headache; including migraine (11 sources) Migraine; Translations: [Migraine, unspecified, not intractable, without status migrainosus] Onset: 07-18-2012 11-19-2024 Chronic Heart valve disorders (1 source) Nonrheumatic mitral [...] sources) Fatigue; Translations: [Chronic fatigue, unspecified] Chronic Malaise and fatigue (1 source) Asthenia; Translations: [Weakness] 01-27-2025 Episodic Mood disorders (20 sources) Depressive disorder; Translations: [Depression, unspecified depression type] Onset: 12-18-2021 Resolved: 11-19-2024 Chronic Other connective tissue disease (2 sources) Repeated falls; Translations: [Repeated falls] Onset: 10-13-2024 Episodic Other hereditary and degenerative nervous system conditions (20 sources) Impaired cognition; Translations: [Mild cognitive impairment, so stated] Onset: 04-12-2022 Chronic Other lower respiratory disease (15 sources) Nodule of lung; Translations: [Solitary pulmonary nodule] Episodic Other lower respiratory disease (3 sources) Solitary pulmonary nodule Onset: 01-05-2022 Resolved: 02-27-2022 Episodic Other lower respiratory disease (2 sources) Dyspnea, unspecified; Translations: [Dyspnea, unspecified] Onset: 10-13-2024 Episodic Other nervous system disorders (3 sources) Abnormal gait; Translations: [Unspecified abnormalities of gait and mobility] 05-04-2024 Episodic Other nervous system disorders (2 sources) Other abnormalities of gait and mobility; Translations: [Other abnormalities of gait and mobility] Onset: 10-13-2024 Episodic Other nervous system disorders (2 sources) Impaired cognition 11-19-2024 Episodic Peripheral and visceral atherosclerosis (20 sources) Unspecified atherosclerosis of [place] arteries of extremities, unspecified extremity; Translations: [Atherosclerosis of arteries of the extremities] Onset: 08-25-2012 Chronic Residual codes; unclassified (11 sources) Sleep apnea; Translations: [Sleep apnea, unspecified] Chronic Residual codes; unclassified (1 source) Sleep apnea, unspecified Onset: 02-27-2022 Resolved: 02-27-2022 Chronic Residual codes; unclassified (6 sources) Obstructive sleep apnea syndrome; Translations: [Obstructive sleep apnea (adult) (pediatric)] 09-10-2024 Chronic Residual codes; unclassified (1 source) Obstructive sleep apnea (adult) (pediatric) Chronic Residual codes; unclassified (1 source) Obstructive sleep apnea (adult)(pediatric); Translations: [Obstructive sleep apnea (adult) (pediatric)] Onset: 07-03-2022 Chronic Residual codes; unclassified (11 sources) History of lung lobectomy; Translations: [Acquired absence of lung [part of]] Episodic Residual codes; unclassified (2 sources) Acquired absence of lung [part of] Onset: 02-27-2022 Resolved: 02-27-2022 Episodic Residual codes; unclassified (4 sources) Amnesia; Translations: [Other amnesia] 05-04-2024 Episodic Residual codes; unclassified (1 source) Other amnesia; Translations: [Memory loss] Onset: 05-12-2024 Episodic Residual codes; unclassified (1 source) Memory impairment; Translations: [Other amnesia] 09-10-2024 Episodic Spondylosis; intervertebral disc disorders; other back problems (10 sources) Cervical spondylosis; Translations: [Spondylosis without myelopathy or radiculopathy, cervical region] Onset: 01-19-2025 01-19-2025 Chronic Spondylosis; intervertebral disc disorders; other back problems (20 sources) Neck pain; Translations: [Cervicalgia] Onset: 11-19-2024 10-12-2024 Episodic Unclassified (1 source) Cough, Congestion Onset: 02-26-2024 Past or Other Problems Problem Classification Problem Date Documented Date Episodic/Chronic Acute bronchitis (1 source) Acute bronchitis, unspecified; Translations: [Acute bronchitis, unspecified] Onset: 02-26-2024 Episodic Deficiency and other anemia (5 sources) Anemia, unspecified; Translations: [Anemia, unspecified] Onset: 03-25-2024 03-31-2024 Episodic Fluid and electrolyte disorders (11 sources) Hyperkalemia; Translations: [Hyperkalemia] Onset: 07-11-2022 Episodic Fracture of upper limb (20 sources) Closed fracture proximal humerus, greater tuberosity; Translations: [Nondisplaced fracture of greater tuberosity of left humerus, subsequent encounter for fracture with routine healing] Onset: 09-19-2023 09-19-2023 Episodic Nonspecific chest pain (1 source) Chest pain; Translations: [Chest pain, unspecified] Onset: 09-18-2013 01-27-2025 Episodic Other connective tissue disease (20 sources) Recurrent falls ; Translations: [Repeated falls] Onset: 06-17-2024 06-23-2024 Episodic Other lower respiratory disease (7 sources) Shortness of breath; Translations: [SHORTNESS OF BREATH] Onset: 12-26-2021 Resolved: 01-29-2022 Episodic Other lower respiratory disease (12 sources) Dyspnea; Translations: [Shortness of breath] Onset: 09-18-2013 Episodic Other lower respiratory disease (1 source) Other forms of dyspnea Onset: 02-27-2022 Resolved: 02-27-2022 Episodic Other lower respiratory disease (1 source) Cough Onset: 02-26-2024 Episodic Other nervous system disorders (20 sources) Functional gait abnormality; Translations: [Other abnormalities of gait and mobility] Onset: 06-17-2024 06-23-2024 Episodic Other screening for suspected conditions (not mental disorders or infectious disease) (1 source) Abnormal results of cardiovascular function studies; Translations: [Abnormal result of cardiovascular function study, unspecified] Onset: 09-30-2013 01-27-2025 Episodic Sprains and strains (20 sources) Strain of muscle(s) and tendon(s) of the rotator cuff of left shoulder, subsequent encounter; Translations: [Other specified aftercare] Onset: 09-19-2023 09-19-2023 Episodic Results Test Name Value Interpretation Reference Range Facility CBC (NO DIFF)on 01-12-2025 Erythrocyte distribution width (RBC) [Ratio] 14.9 % Normal 11.5-15 [facility] Comment on above: Performed By: #### Ben ALVARADO, 07232-0, 3083-1, UPCR, 2731-8, 40558-5 #### [facility] ([id number]) [address] [address] [place] [address] Hematocrit (Bld) [Volume fraction] 34.1 % Low 39-50 [facility] Comment on above: Performed By: #### Ben ALVARADO, 77401-9, 3083-, UPCR, 2731-8, 50872-0 #### [facility] ([id number]) [address], [facility] [address] [place] [address] Hemoglobin (Bld) [Mass/Vol] 11.5 g/dL Low 13-17 [facility] Comment on above: Performed By: #### Ben ALVARADO, , 3083-, UPCR, 2731-8, 21441-6 #### [facility] ([id number]) [address] [address] [place] [address] MCH (RBC) [Entitic mass] 30.6 pg Normal 27-34 [facility] Comment on above: Performed By: #### Ben ALVARADO, 55432-1, 4-1, UPCR, 2731-8, 72038-3 #### [facility] ([id number]) [address] [address] [place] [address] MCHC (RBC) [Mass/Vol] 33.6 g/dL Normal 32-36 [facility] Comment on above: Performed By: #### Ben ALVARADO, 58784-0, 3083-, UPCR, 2731-8, 27109-1 #### [facility] ([id number]) [address] [place] [address] MCV (RBC) [Entitic vol] 91 fL Normal 80-100 [facility] Comment on above: Performed By: #### Ben ALVARADO, 70689-9, 3083-1, UPCR, 2731-8, 02499-6 #### [facility] ([id number]) [address], [address] [place] [address] Platelet mean volume (Bld) [Entitic vol] 7.5 fL Normal 7-12 [facility] Comment on above: Performed By: #### Ben ALVARADO, 06378-5, 3083-, UPCR, 2730-8, 51865-9 #### [facility] ([id number]) [address], [address] [place] [address] Platelets (Bld) [#/Vol] 122 10*3/uL Low 150-450 [facility] Comment on above: Performed By: #### Ben ALVARADO, 84008-5, 3083-, UPCR, 2730-, 75631-3 #### [facility] ([id number]) [address] [place] [address] RBC COUNT 3.75 X10E12/L Low 4.1-5.7 [facility] Comment on above: Performed By: #### Ben ALVARADO, 07020-4, 3083-, UPCR, 2730-8, 87070-1 #### [facility] ([id number]) [address] [place] [address] WBC (Bld) [#/Vol] 5.5 10*3/uL Normal 4-11 [facility] Comment on above: Performed By: #### Ben ALVARADO, 77890-9, 3083-, UPCR, 2731-8, 54951-8 #### [facility] ([id number]) [address], [address] [place] [address] MAGNESIUMon 01-12-2025 Magnesium [Mass/Vol] 2.0 mg/dL Normal 1.8-2.6 [facility] Comment on above: Performed By: #### Ben ALVARADO, 37447-7, 3084-1, UPCR, 2731-8, 08645-1 #### [facility] ([id number]) [address], [address] [place] [address] MICROALBUMIN / CREATININE UR INE RATIOon 01-12-2025 Albumin DL <= 20 mg/L (U) [Mass/Vol] 0.9 mg/dL Normal 0.0-1.9 [facility] Comment on above: Performed By: #### Ben ALVARADO, 00093-5, 3083-1, UPCR, 2731-8, 78759-8 #### [facility] ([id number]) [address], [address] [place] [address] MALB/CREAT RATIO 6.8 mg/g Normal 0.0-30.0 [facility] Comment on above: Performed By: #### Ben ALVARADO, 05329-8, 3083-, UPCR, 273-8, 96069-0 #### [facility] ([id number]) [address], [address] [place] [address] URINE CREATININE,RDM 132.37 mg/dL Normal [facility] Comment on above: Performed By: #### [place], 96144-1, 4-1, UPCR, 2731-8, 35113-2 #### [facility] ([id number]) [address], [address] [place] [address] RENAL PANELon 01-12-2025 Albumin [Mass/Vol] 4.1 g/dL Normal 3.2-5.3 [facility] Comment on above: Performed By: #### Ben BC, 07070-0, 4-1, UPCR, 2731-8, 64087-2 #### [facility] ([id number]) [address] [place] [address] Anion gap [Moles/Vol] 9 mmol/L Normal 5-15 [facility] Comment on above: Performed By: #### Ben ALVARADO, 08998-5, 4-1, UPCR, 2731-8, 65553-7 #### [facility] ([id number]) [address], [address] [place] [address] Calcium [Mass/Vol] 9.1 mg/dL Normal 8.5-10.5 [facility] Comment on above: Performed By: #### Ben ALVARADO, 19919-5, 3083-, UPCR, 2730-8, 07557-1 #### [facility] ([id number]) [address] [place] [address] Chloride [Moles/Vol] 110 mmol/L High 98-109 [facility] Comment on above: Performed By: #### Ben ALVARADO, 71263-4, 3083-, UPCR, 2730-8, 16899-4 #### [facility] ([id number]) [address] [place] [address] CO2 [Moles/Vol] 26 mmol/L Normal 22-32 [facility] Comment on above: Performed By: #### Ben ALVARADO, , 3083-, UPCR, 2730-8, 13437-2 #### [facility] ([id number]) [address], [address] [place] [address] Creatinine [Mass/Vol] 1.87 mg/dL High 0.60-1.30 [facility] Comment on above: Result Comment: METH OD TRACEABLE TO IDMS STANDARD Performed By: #### Ben ALVARADO, 60984-8, 3083-1, UPCR, 2731-8, 09674-3 #### [facility] ([id number]) [address], [address] [place] [address] GFR/1.73 sq M.predicted among non-blacks MDRD (S/P/Bld) [Vol rate/Area] 38 mL/min/{1.73_m2} Low >=60 [facility] Comment on above: Result Comment: Repo rted eGFR is based on the CKD-EPI 2020 equation that does not use a race coefficient. Performed By: #### Ben ALVARADO, , 3083-08, UPCR, 2731-8, 61616-4 #### [facility] ([id number]) [address] [place] [address] Glucose [Mass/Vol] 93 mg/dL Normal 65-99 [facility] Comment on above: Performed By: #### Ben ALVARADO, , 3083-08, UPCR, 2730-8, 37192-8 #### [facility] ([id number]) [address], [address] [place] [address] Phosphate [Mass/Vol] 4.0 mg/dL Normal 2.4-4.9 [facility] Comment on above: Performed By: #### Ben ALVARADO, , 3083-08, UPCR, 2731-8, 32899-4 #### [facility] ([id number]) [address] [address] [place] [address] Potassium [Moles/Vol] 4.3 mmol/L Normal 3.5-5.0 [facility] Comment on above: Performed By: #### Ben BC, , 3083-, UPCR, 2731-8, 45461-4 #### [facility] ([id number]) [address] [place] [address] Sodium [Moles/Vol] 145 mmol/L Normal 134-146 [facility] Comment on above: Performed By: #### Ben BC, , 3084-1, UPCR, 2731-8, 48475-2 #### [facility] ([id number]) [address] [place] [address] Urea nitrogen [Mass/Vol] 30 mg/dL High 5-27 [facility] Comment on above: Performed By: #### Ben ALVARADO, 25764-4, 3083-1, UPCR, 2731-8, 02844-3 #### [facility] ([id number]) [address] [place] [address] URINALYSISon 01-12-2025 Bilirubin Ql (U) Negative Normal Negative [facility] Comment on above: Performed By: #### Ben ALVARADO, 80419-9, 3083-, UPCR, 2731-8, 68123-3 #### [facility] ([id number]) [address] [place] [address] BLOOD/HGB Negative Normal Negative [facility] Comment on above: Performed By: #### Ben ALVARADO, 27130-0, 3083-, UPCR, 2731-8, 04700-5 #### [facility] ([id number]) [address] [place] [address] Color (U) Yellow Normal Yellow, Colorless [facility] Comment on above: Performed By: #### Ben ALVARADO, 92668-4, 3083-, UPCR, 2731-8, 92706-8 #### [facility] ([id number]) [address] [place] [address] Glucose Ql (U) Negative Normal Negative [facility] Comment on above: Performed By: #### Ben ALVARADO, 87425-2, 3083-1, UPCR, 2731-8, 35807-6 #### [facility] ([id number]) [address] [place] [address] Ketones Ql (U) Negative Normal Negative [facility] Comment on above: Performed By: #### Ben ALVARADO, 37517-9, 3084-1, UPCR, 2731-8, 28294-6 #### [facility] ([id number]) [address] [place] [address] Leukocyte esterase Test strip Ql (U) Negative Normal Negative [facility] Comment on above: Performed By: #### Ben ALVARADO, 49216-8, 4-1, UP, 2731-8, 40256-1 #### [facility] ([id number]) [address] [place] [address] Nitrite Ql (U) Negative Normal Negative [facility] Comment on above: Performed By: #### Ben ALVARADO, 90505-9, 4-1, UP, 2731-8, 59903-2 #### [facility] ([id number]) [address] [place] [address] PH,URINE 6.0 Normal 5.0-8.5 [facility] Comment on above: Performed By: #### Ben ALVARADO, 12165-2, 4-1, UP, 2731-8, 38852-0 #### [facility] ([id number]) [address] [place] [address] Protein Ql (U) Negative Normal Negative [facility] Comment on above: Performed By: #### Ben ALVARADO, 22506-2, 4-1, UP, 2731-8, 94078-2 #### [facility] ([id number]) [address] [place] [address] Specific gravity (U) [Rel density] 1.018 Normal 1.003-1.035 [facility] Comment on above: Performed By: #### Ben ALVARADO, 40637-6, 4-1, UPCR, 2731-8, 54418-3 #### [facility] ([id number]) [address] [place] [address] TURBIDITY Clear Normal Clear [facility] Comment on above: Performed By: #### C JENNY, 89420-5, 3084-1, UP, 2731-8, 42087-3 #### [facility] ([id number]) [address] [place] [address] UROBILINOGEN <1.1 eu/dL Normal <1.1 eu/dL [facility] Comment on above: Performed By: #### C JENNY, 06439-4, 3084-1, [facility], 2731-8, 79558-9 #### [facility] ([id number]) [address] [place] [address] XR SPINE CERVICAL 3 VWS OR L ESSon 01-12-2025 XR SPINE CERVICAL 3 VWS OR LESS XR SPINE CERVICAL 3 VWS OR LESS XR SPINE CERVICAL 3 VWS OR LESS [...] Oh Wild MD on 01/12/2025 12:57 AM Normal [facility] COMPLETE BLOOD COUNTon 10-20 Erythrocyte distribution width (RBC) [Ratio] 15.0 % Normal 11.5-15.0 [facility] Comment on above: Performed By: #### C JENNY, 93157-3, 3084-1, UP, 2731-8, 12267-9 #### [facility] ([id number]) [address] [place] [address] Hematocrit (Bld) [Volume fraction] 36.4 % Low 39-49 [facility] Comment on above: Performed By: #### Ben ALVARADO, , 3083-, UPCR, 2731-8, 17523-8 #### [facility] ([id number]) [address] [place] [address] Hemoglobin (Bld) [Mass/Vol] 12.5 g/dL Low 13.0-17.0 [facility] Comment on above: Performed By: #### Ben ALVARADO, , 3083-, UP, 2731-8, 50100-9 #### [facility] ([id number]) [address] [place] [address] MCH (RBC) [Entitic mass] 30.8 pg Normal 27-34 [facility] Comment on above: Performed By: #### Ben ALVARADO, , 3083-08, UP, 2730-8, 76655-1 #### [facility] ([id number]) [address] [place] [address] MCHC (RBC) [Mass/Vol] 34.4 g/dL Normal 32-36 [facility] Comment on above: Performed By: #### Ben ALVARADO, , 3083-08, UPCR, 2730-8, 63067-8 #### [facility] ([id number]) [address] [place] [address] MCV (RBC) [Entitic vol] 89 fL Normal 80-100 [facility] Comment on above: Performed By: #### Ben ALVARADO, , 3083-, UPCR, 2731-8, 46394-8 #### [facility] ([id number]) [address] [place] [address] Platelet mean volume (Bld) [Entitic vol] 7.4 fL Normal 7-12 [facility] Comment on above: Performed By: #### Ben ALVARADO, , 3083-, UPCR, 1-8, 89351-5 #### [facility] ([id number]) [address] [place] [address] Platelets (Bld) [#/Vol] 145 10*3/uL Low 150-450 [facility] Comment on above: Performed By: #### Ben BC, , 3083-, UPCR, 2730-8, 24100-9 #### [facility] ([id number]) [address], [address] [place] [address] RBC COUNT 4.08 X10E12/L Low 4.10-5.70 [facility] Comment on above: Performed By: #### Ben ALVARADO, , 3083-08, UPCR, 2730-8, 79208-8 #### [facility] ([id number]) [address], [facility] [address] [place] [address] WBC (Bld) [#/Vol] 5.3 10*3/uL Normal 4.0-11.0 [facility] Comment on above: Performed By: #### Ben BC, , 3083-08, UPCR, 2730-8, 28035-2 #### [facility] ([id number]) [address], [address] [place] [address] FERRITINon 10-20-2024 Ferritin [Mass/Vol] 67 ng/mL Normal 24-336 [facility] Comment on above: Performed By: #### Ben BC, , 3083-, UPCR, 2731-8, 77292-8 #### [facility] ([id number]) [address] [place] [address] Folate [Mass/Vol]on 10-21-19 25 FOLIC ACID 24.5 ng/mL Normal >5.8 [facility] Comment on above: Result Comment: NEW REFERENCE RANGE Performed By: #### Ben BC, 01468-6, 3084-1, UPCR, 2731-8, 75245-0 #### [facility] ([id number]) [address] [place] [address] IRON PROFILEon 10-20-2024 Iron [Mass/Vol] 75 ug/dL Normal 50-212 [facility] Comment on above: Performed By: #### Ben BC, 69064-0, 3084-1, UPCR, 2731-8, 86072-6 #### [facility] ([id number]) [address] [place] [address] IRON BINDING 392 ug/dL Normal 250-425 [facility] Comment on above: Performed By: #### Ben ALVARADO, 00935-4, 4-1, UPCR, 2731-8, 07782-7 #### [facility] ([id number]) [address] [place] [address] IRON SATURATION 19 % SATURATION Low 20-50 [facility] Comment on above: Performed By: #### Ben ALVARADO, 99874-8, 3084-1, UPCR, 2731-8, 63655-5 #### [facility] ([id number]) [address] [place] [address] LIVER PANELon 10-20-2024 Albumin [Mass/Vol] 4.3 g/dL Normal 3.2-5.3 [facility] Comment on above: Performed By: #### [place], 56507-3, 308-1, UPCR, 2731-8, 54143-2 #### [facility] ([id number]) [address], [address] [place] [address] ALP [Catalytic activity/Vol] 48 U/L Normal 39-130 [facility] Comment on above: Performed By: #### Ben BC, 51340-2, 3084-1, UPCR, 2731-8, 91369-3 #### [facility] ([id number]) [address] [place] [address] ALT [Catalytic activity/Vol] 28 U/L Normal 0-40 [facility] Comment on above: Performed By: #### C BC, 41652-4, 3084-1, UPCR, 2731-8, 66959-9 #### [facility] ([id number]) [address] [place] [address] AST [Catalytic activity/Vol] 33 U/L Normal 0-41 [facility] Comment on above: Performed By: #### Ben ALVARADO, 13192-1, 4-1, UPCR, 2731-8, 77394-2 #### [facility] ([id number]) [address] [place] [address] Bilirubin [Mass/Vol] 0.6 mg/dL Normal 0.3-1.2 [facility] Comment on above: Performed By: #### Ben ALVARADO, 96510-7, 4-1, UPCR, 2731-8, 31747-0 #### [facility] ([id number]) [address] [place] [address] Bilirubin.direct [Mass/Vol] 0.2 mg/dL Normal 0.0-0.4 [facility] Comment on above: Performed By: #### Ben BC, 05527-1, 4-1, UPCR, 2731-8, 66670-2 #### [facility] ([id number]) [address] [place] [address] Protein [Mass/Vol] 6.7 g/dL Normal 6.0-8.0 [facility] Comment on above: Performed By: #### Ben BC, 46521-6, 4-1, UPCR, 2731-8, 47426-5 #### [facility] ([id number]) [address] [place] [address] Lipid 1996 panelon 5 Cholesterol [Mass/Vol] 119 mg/dL Low 150-200 [facility] Comment on above: Performed By: ###Lance ALVARADO, 61101-3, 3084-1, UPCR, 2731-8, 37043-6 #### [facility] ([id number]) [address] [place] [address] Cholesterol in HDL [Mass/Vol] 42 mg/dL Normal >39 [facility] Comment on above: Result Comment: HDL <40 mg/dL - High Risk HDL > or = 40mg/dL- Desirable HDL >60 mg/dL - Negative Risk Performed By: ###Lance ALVARADO, 31230-7, 3083-1, UPCR, 2731-8, 03702-7 #### [facility] ([id number]) [address] [place] [address] Cholesterol in LDL [Mass/Vol] 52 mg/dL Normal <130 [facility] Comment on above: Result Comment: LDL <100 mg/dL - Desirable LDL >160 mg/dL - High Risk Performed By: ###Lance ALVARADO, 48605-8, 4-1, UPCR, 2731-8, 61623-4 #### [facility] ([id number]) [address] [place] [address] Cholesterol in VLDL [Mass/Vol] 25 mg/dL Normal 0-30 [facility] Comment on above: Performed By: ###Lance ALVARADO, 89186-0, 3084-1, UPCR, 2731-8, 96410-4 #### [facility] ([id number]) [address] [place] [address] CHOLESTEROL:HDL 2.8 Normal 1.0-5.0 [facility] Comment on above: Performed By: #### C BC, 47719-6, 3084-1, UPCR, 2731-8, 10639-6 #### [facility] ([id number]) [address] [place] [address] Triglyceride [Mass/Vol] 125 mg/dL Normal 27-150 [facility] Comment on above: Performed By: #### C BC, 36684-5, 3084-1, UPCR, 2731-8, 07075-4 #### [facility] ([id number]) [address] [place] [address] MAGNESIUMon 10-20-2024 Magnesium [Mass/Vol] 2.0 mg/dL Normal 1.8-2.6 [facility] Comment on above: Performed By: #### Ben BC, 68933-9, 3084-1, UPCR, 2731-8, 37358-9 #### [facility] ([id number]) [address] [place] [address] PROTEIN CREAT RATIOon 2024 RANDOM URINE PROTEIN 170 mg/L High <120 [facility] Comment on above: Performed By: #### [place], 79787-3, 3084-1, UPCR, 2731-8, 98078-7 #### [facility] ([id number]) [address], [address] [place] [address] U/PRO/CUSTOMER SECURITY CLERK RATIO CALC 0.09 Normal <0.2 [facility] Comment on above: Result Comment: Neph rotic Syndrome is associated with ratios >3.5 Performed By: #### [place], [address]-7, 3084-1, UPCR, 2731-8, 80901-0 #### [facility] ([id number]) [address], [address] [place] [address] URINE CREATININE,RDM 199.09 mg/dL Normal [facility] Comment on above: Performed By: #### Ben ALVARADO, 24441-9, 3083-1, UPCR, 2731-8, 57142-7 #### [facility] ([id number]) [address], [address] [place] [address] Parathyrin.intact [Mass/Vol] on 10-20-2024 PTH INTACT 48 pg/mL Normal 12-88 [facility] Comment on above: Performed By: #### Ben ALVARADO, 62954-3, 3083-, UPCR, 2731-8, 22554-7 #### [facility] ([id number]) [address], [address] [place] [address] RENAL PANELon 10-20-2024 Anion gap [Moles/Vol] 13 mmol/L Normal 5-15 [facility] Comment on above: Performed By: #### Ben ALVARADO, 72991-1, 3083-, UPCR, 2731-8, 63693-7 #### [facility] ([id number]) [address], [address] [place] [address] Calcium [Mass/Vol] 9.2 mg/dL Normal 8.5-10.5 [facility] Comment on above: Performed By: #### [place], [address]-9, 3083-, UPCR, 2731-8, 51838-0 #### [facility] ([id number]) [address], [address] [place] [address] Chloride [Moles/Vol] 107 mmol/L Normal 98-109 [facility] Comment on above: Performed By: #### [place], [address]-7, 3083-1, UPCR, 2731-8, 90296-0 #### [facility] ([id number]) [address], [address] [place] [address] CO2 [Moles/Vol] 21 mmol/L Low 22-32 [facility] Comment on above: Performed By: #### C BC, 58077-3, 3083-, UPCR, 2731-8, 36290-2 #### [facility] ([id number]) [address], [address] [place] [address] Creatinine [Mass/Vol] 2.23 mg/dL High 0.60-1.30 [facility] Comment on above: Result Comment: METH OD TRACEABLE TO IDMS STANDARD Performed By: #### C BC, 08134-6, 3083-, UPCR, 2731-8, 87401-0 #### [facility] ([id number]) [address], [address] [place] [address] GFR/1.73 sq M.predicted among non-blacks MDRD (S/P/Bld) [Vol rate/Area] 31 mL/min/{1.73_m2} Low >59 [facility] Comment on above: Result Comment: Reported eGFR is based on the CKD-EPI 2020 equation that does not use a race coefficient. Performed By: #### Ben BC, , 3083-, UPCR, 2731-8, 18506-1 #### [facility] ([id number]) [address], [address] [place] [address] Glucose [Mass/Vol] 96 mg/dL Normal 65-99 [facility] Comment on above: Performed By: #### C BC, , 3083-, UPCR, 2731-8, 23770-2 #### [facility] ([id number]) [address], [address] [place] [address] Phosphate [Mass/Vol] 4.7 mg/dL Normal 2.4-4.9 [facility] Comment on above: Performed By: #### C BC, 91765-9, 3083-, UPCR, 2731-8, 93117-2 #### [facility] ([id number]) [address], [address] [place] [address] Potassium [Moles/Vol] 4.4 mmol/L Normal 3.5-5.0 [facility] Comment on above: Performed By: #### [place], 12201-2, 3084-1, UPCR, 2731-8, 34003-2 #### [facility] ([id number]) [address], [address] [place] [address] Sodium [Moles/Vol] 141 mmol/L Normal 134-146 [facility] Comment on above: Performed By: #### Ben ALVARADO, 74854-6, 3084-1, UPCR, 273-8, 58005-5 #### [facility] ([id number]) [address], [address] [place] [address] Urea nitrogen [Mass/Vol] 28 mg/dL High 5-27 [facility] Comment on above: Performed By: #### Ben ALVARADO, 56793-3, 3084-1, UPCR, 2731-8, 77128-9 #### [facility] ([id number]) [address], [address] [place] [address] URIC ACIDon 10-20-2024 Urate [Mass/Vol] 6.2 mg/dL Normal 2.6-7.2 [facility] Comment on above: Performed By: #### Ben ALVARADO, 67969-9, 3084-1, UPCR, 2731-8, 06989-4 #### [facility] ([id number]) [address], [address] [place] [address] URINALYSISon 10-20-2024 Bilirubin Ql (U) Negative Normal NEG [facility] Comment on above: Performed By: #### Ben BC, 66373-1, 3084-1, UPCR, 2731-8, 28695-2 #### [facility] ([id number]) [address], [address] [place] [address] BLOOD/HGB Negative Normal NEG [facility] Comment on above: Performed By: #### Ben ALVARADO, 51669-4, 3083-, UPCR, 2731-8, 84531-2 #### [facility] ([id number]) [address], [facility] [address] [place] [address] Color (U) YELLOW Normal YELLOW [facility] Comment on above: Performed By: #### Ben ALVARADO, 76962-6, 3083-, UPCR, 2731-8, 03043-9 #### [facility] ([id number]) [address], [facility] [address] [place] [address] Glucose Ql (U) Negative Normal NEG [facility] Comment on above: Performed By: #### Ben ALVARADO, 97271-1, 3083-, UPCR, 1-8, 78064-9 #### [facility] ([id number]) [address], [address] [place] [address] Hyaline casts LM Ql (Urine sed) 4 /lpf High 0-2 [facility] Comment on above: Performed By: #### Ben ALVARADO, 58699-2, 3083-, UPCR, 2731-8, 24201-4 #### [facility] ([id number]) [address], [address] [place] [address] Ketones Ql (U) Negative Normal NEG [facility] Comment on above: Performed By: #### Ben ALVARADO, 12676-7, 3083-, UPCR, 2731-8, 26015-4 #### [facility] ([id number]) [address], [address] [place] [address] Leukocyte esterase Test strip Ql (U) Negative Normal NEG [facility] Comment on above: Performed By: #### Ben ALVARADO, 23522-8, 3083-, UPCR, 2731-8, 25718-6 #### [facility] ([id number]) [address], [address] [place] [address] MUCOUS PRESENT Abnormal NONE [facility] Comment on above: Performed By: #### Ben ALVARADO, 49702-2, 3084-1, UP, 2731-8, 22872-3 #### [facility] ([id number]) [address], [address] [place] [address] Nitrite Ql (U) Negative Normal NEG [facility] Comment on above: Performed By: #### Ben ALVARADO, 19505-6, 4-1, [facility], 2730-8, 35335-6 #### [facility] ([id number]) [address], [address] [place] [address] pH (U) 6.0 [pH] Normal 5.0-8.5 [facility] Comment on above: Performed By: #### Ben ALVARADO, 39427-1, 3083-1, [facility], 1-8, 47250-2 #### [facility] ([id number]) [address], [address] [place] [address] Protein Ql (U) Trace Abnormal NEG [facility] Comment on above: Performed By: #### Ben ALVARADO, 30640-2, 4-1, [facility], 1-8, 94741-3 #### [facility] ([id number]) [address], [address] [place] [address] R.B.CELLS 0 /hpf Normal 0-5 [facility] Comment on above: Performed By: #### Ben ALVARADO, 96872-8, 4-1, UP, 2731-8, 32602-8 #### [facility] ([id number]) [address], [address] [place] [address] Specific gravity (U) [Rel density] 1.023 Normal 1.003-1.035 [facility] Comment on above: Performed By: #### Ben ALVARADO, 30888-6, 3084-1, UPCR, 2731-8, 04945-3 #### [facility] ([id number]) [address], [address] [place] [address] TURBIDITY CLEAR Normal CLEAR [facility] Comment on above: Performed By: #### eBn ALVARADO, 61648-4, 4-1, UP, 2731-8, 30180-3 #### [facility] ([id number]) [address], [address] [place] [address] Urobilinogen (U) [Mass/Vol] mg/dL Normal <1.1 [facility] Comment on above: Performed By: #### Ben ALVARADO, 66278-0, 4-1, UPCR, 2731-8, 13206-6 #### [facility] ([id number]) [address], [address] [place] [address] W.B.CELLS 2 /hpf Normal 0-5 [facility] Comment on above: Performed By: #### Ben ALVARADO, 54457-5, 4-1, UP, 2731-8, 10781-1 #### [facility] ([id number]) [address], [address] [place] [address] VITAMIN B12on 10-20-2024 Cobalamin (Vitamin B12) [Mass/Vol] 462 pg/mL Normal 180-914 [facility] Comment on above: Performed By: #### Ben ALVARADO, 20609-9, 4-1, UPCR, 2731-8, 79310-8 #### [facility] ([id number]) [address], [address] [place] [address] Vitamin D+Metabolites [Mass/ Vol]on 10-20-2024 VITAMIN D 25 HYD TOT 72.1 ng/mL Normal 30-100 [facility] Comment on above: Result Comment: Vitamin D status 25 [place] Vitamin D Deficiency <20 ng/mL Insufficiency 20-29 ng/mL Sufficiency 30-100 ng/mL Toxicity >100 ng/mL NOTE: A pediatric reference range has not been established by the farm management agent of this kit. The [place] [employer] recommends a Vitamin D level of = or >20ng/mL in infants and children. Performed By: #### C , 15967-8, 3084-1, [facility], 2731-8, 93515-8 #### [facility] ([id number]) [address] [facility], [address] [place] [address] Office Visiton 10-13-2024 Follow-up visit [id number] Kel Castillo 1955 M Date Provider Department Center 10/13/2024 271-SARAH TOLLIVER SAMI Rasmussen Family History Problem Relation Age of Onset Diabetes Mother Family Status - Relation Status Age at Mother Level of Service:00454 [place] OFFICE/OUTPATIENT ESTABLISHED MOD MDM 30 MIN Normal [facility] CNOVon 10-12-2024 CNOV Office Visit (NEIND4 ) SAMIR CASTILLO ([id number]) 1955 M Date Time Provider Department 10/12/24 11:30 AM EBONY TRENT NEIND4 During your visit today, we recorded the following information about you: Pulse Blood pressure Weight Height 58/minute 136/61 77.1 kg 1.651 Sandra Herrera MA 10/12/2024 2:47 PM Signed 10/12/2024 [employer] Physical Health Summary Physical health: Poor Everyday physical activity, ability: A little Fatigue: Severe Pain level: 8 General health: Fair Social activities/roles, ability: Poor Physical Health T-Score 26.7 (Poor) Physical Health Percentile 1 PROMIS Global Health Mental Health Summary Quality of life: Fair Mental health (mood,thinking): Poor Social satisfaction: Poor Emotional problems (anxious,depressed): Sometimes Mental Health T-Score 31.3 (Fair) Mental Health Percentile 3 PROMIS Physical Function T-Score 31(Moderate Dysfunction) PROMIS Physical Function Percentile 3 Percentiles provide an indication of how a patient's score ranks in relation to the [place] general population. > 31st percentile is within normal limits or better *< 31st percentile is at least ? SD worse than population, which may be clinically relevant < 16th percentile is at least 1 SD worse than population and warrants attention 10/11/2024 Sleep Apnea Probability Snores loudly: No Tired, fatigued or sleepy in daytime: Yes Stops breathing or choking/gasping during sleep: Yes High blood pressure: Yes Sleep Apnea Probability Score: 70 (Recommend sleep study) Ebony Trent DO 10/12/2024 2:47 PM Signed [facility] Follow up/ Established patient visit Individuals who were included in, or assisted with the encounter were: Samir Castillo Ebony Black DO Chief Complaint/Issues: Samir Castillo is a 69 year old male seen in the [facility] for: Memory loss Most Recent Neurological Assessment and Plan: Last Filed Values Date of Most Recent Assessment and Plan 05/04/24 Specialty General Neurology Assessment Mr. Castillo is a 69 year old man with prior MCI on neuropsych previously described as largely due to depression and untreated sleep apnea. Memory worse since the last two years since the test was last done. Also some new gait imbalance of unclear etiology. Plan CT brain PT Encouraged to talk to prescriber of CPAP for additional mask options Neuropsych re-referral Follow-up after neuropsych testing HPI/Interval History: Here for follow-up to go over neurpsych results. He is accompanied by two daughters. The following is the summary of his neuropsych test results: Taken together, at this time there are significant cognitive deficits present on the exam today which are deemed to be a change from his baseline, and these difficulties are interfering with independent daily functioning. Therefore, he meets criteria for Major Neurocognitive Disorder (i.e., dementia). However, the cognitive profile reveals largely globally depressed scores, perhaps with worse performances on measures of frontal-systems (most notably processing speed and language) and non-dominant parietal functions. At this time, the cause of this dysfunction is not fully clear. There is likely some contribution from cerebrovascular change and other medical factors such as suboptimal kidney function and untreated JITENDRA. It is also suspected that, to perhaps a lesser extent, possible medication side effects and emotional distress are also contributory. These factors are seen in the context of suspected baseline academic weaknesses based on his reported developmental history. While the possibility of a neurodegenerative disease cannot be ruled out, the improvement in list memory recognition could argue against a classic Alzheimer's disease. A more frontally-mediated neurodegenerative disease is also possible, but there are limited reported changes in behavior or personality, which may make this less likely. There are also some reported motor and sensory symptoms that are currently of unclear significance with respect to cognitive changes. Continued monitoring will be helpful to track changes across time and help clarify differential. He notes balance off somewhat. He has had some falls since he was here in April. Has Improved some lately. He had some lightheadedness when the sun hit him after 1[address] is here. He gets lightheaded lately frequently. He drinks 3 bottles of water daily. He does not drink alcohol. Denies hallucinations. He has some depression, on Wellbutrin, Zoloft, buspar, Trazodone. He is off olanzapine For the last three weeks he is more awake, less tremor. He still has not found a sleep apnea mask that he likes. He may have some tremors writing a list. Holding a coffee (more content not included)... Normal [facility] CNOVon 09-08-2024 CNOV Office Visit (NPTU10 ) SAMIR CASTILLO ([id number]) 1955 M Date Time Provider Department 09/08/24 8:00 AM MISTY POLO NPTU10 During your visit today, we recorded the following information about you: Misty Polo, PhD 09/10/2024 4:35 PM Signed [facility] Department of Neurology Section of Neuropsychology Neuropsychological Evaluation Report CONFIDENTIAL Patient: Samir Castillo Date of : 1955 Referred by: Ebony Black MD (Neurology) Education: 10 Handedness: R Language(s): Turkmen Date of Evaluation: 09/08/2024 Mr. Castillo is a 69 year old, /Multicultu ral man with 10 years of formal education who was referred for a neuropsychological re-evaluation due to concerns about cognition seen in the context of a history of JITENDRA and established Mild Neurocognitive Disorder. This evaluation was conducted to determine his current cognitive functioning and inform treatment planning. This evaluation included patient interview, collateral interview, medical record review, and formal neuropsychological testing. PRESENTING PROBLEM: Pt presents with daughter. Here today because he has been having a lot of problems with memory loss. Also feeling like his brain is scrambled and feeling a lot of nerves (anxiety). Daughter agrees with this and states that he is also having a lot of falls and that is concerning to her, and stands out to her. Review of systems further reveals: word-finding for peoples' names, including his grandchildren. Stuttering while speaking because he is trying to make a sentence come out right. Dtr adds that he has said that he knows what he wants to say but sometimes cannot get it out. Bumping into things at home but not sure why. Maybe some difficulty understanding others when they speak. More withdrawn, especially noticeable at family events like a holiday gathering; does not interact as much. Onset/course: insidiously in late 2019, gradually worsening over time in general but there are some better days Pending legal/disability proceedings: none per patient IADL / ADL: Lives alone. One daughter helps with organizing medications, the other takes him to medical appointments Finances: independent, no changes. Medications: daughter organizing them and he takes individual doses; has forgotten doses in the past but this seems better recently. There has been some mixing up of AM/PM in the past. Driving: no driving for about one year; stopped because he went on an errand and forgot where he was. Also bumped into some stationary objects. Technology: sometimes the TV is a little challenging, sometimes needs help getting on the right channel (but also has a different setup) Cooking: once left the stove on but not in a while Self Care: no changes or concerns. PHYSICAL FUNCTIONING: Motor: shaking in UE (R>L), balance difficulty, multiple falls. Feels like he lists to the R Sensory: had one incident where he thought he heard a person knocking on the window in the evening while watching TV, which spooked him. On another occasion he thought he heard his granddaughter calling him - however this was in the context of sleep. Autonomic: dizziness Sleep: average hours = 6-8, last night = 6-8 Onset: no difficulty with sleep onset. Sleep efficiency: consistent throughout the night. JITENDRA: yes Consistent CPAP Use: not using it, finds it hard to sleep with Dream Enactment: no Restfulness: often tired upon waking, will take a nap every day Pain: he does not report any chronic pain. MEDICAL HISTORY: Includes: JITENDRA, Mild Neurocognitive Disorder, migraine headaches, COPD, CKD, CAD (s/p triple bypass). He denied history of seizure, stroke, concussion. See record for a full list. Cancer: lung - resected part of his lung and then treated him with radiation - late CURRENT MEDICATIONS: Includes: bupropion, olanzapine, sertraline, trazodone. See record for a full list. Anticholinergic burden score: 6 DEVELOPMENTAL AND SOCIAL HISTORY: Problems meeting milestones: no Problems with mother's /delivery: no Early HATCH BOSS infection, high fever, significant childhood illness: no SCHOOL HISTORY: Years of education completed: 10; left school early because he did not like it. 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 One day will feel worried and next day will feel okay. Has been this way for a long time. Mental health treatment: He endorsed lo (more content not included)... Normal [facility] Lipid 1996 panelon 4 Cholesterol [Mass/Vol] 142 mg/dL Low 150 - 200 mg/dL [facility] Cholesterol in HDL [Mass/Vol] 43 mg/dL 39 - PINF mg/dL [facility] Comment on above: HDL <40 mg/dL - High Risk HDL > or = 40mg/dL- Desirable HDL >60 mg/dL - Negative Risk Cholesterol in HDL/Total Cholesterol [Mass ratio] 3.3 {ratio} 1.0 - 5.0 [facility] Comment on above: PERFORMED AT [place] [id number] [address]. [address],[place] [address] Cholesterol in LDL [Mass/Vol] 75 mg/dL NINF - 130 mg/dL [facility] Comment on above: LDL <100 mg/dL - Desirable LDL >160 mg/dL - High Risk Cholesterol in VLDL [Mass/Vol] 24 mg/dL 0 - 30 mg/dL [facility] Interpretation and review of laboratory results Abnormal [facility] Triglyceride [Mass/Vol] 118 mg/dL 27 - 150 mg/dL [facility] Cholesterol [Mass/Vol] 142 mg/dL Low 150-200 [facility] Comment on above: Performed By: #### 2 4331-1 #### [facility] ([id number]) [address] [place] [address], [address] [place] [address] Cholesterol in HDL [Mass/Vol] 43 mg/dL Normal >39 [facility] Comment on above: Result Comment: HDL <40 mg/dL - High Risk HDL > or = 40mg/dL- Desirable HDL >60 mg/dL - Negative Risk Performed By: #### 2 4331-1 #### [facility] ([id number]) [address] [place] [address] [address] [place] [address] Cholesterol in LDL [Mass/Vol] 75 mg/dL Normal <130 [facility] Comment on above: Result Comment: LDL <100 mg/dL - Desirable LDL >160 mg/dL - High Risk Performed By: #### 2 4331-1 #### [facility] ([id number]) [address], [address] [place] [address] Cholesterol in VLDL [Mass/Vol] 24 mg/dL Normal 0-30 [facility] Comment on above: Performed By: #### 2 4331-1 #### [facility] ([id number]) [address], [facility] [address] [place] [address] CHOLESTEROL:HDL 3.3 Normal 1.0-5.0 [facility] Comment on above: Performed By: #### 2 4331-1 #### [facility] ([id number]) [address], [facility] [address] [place] [address] Triglyceride [Mass/Vol] 118 mg/dL Normal 27-150 [facility] Comment on above: Performed By: #### 2 4331-1 #### [facility] ([id number]) [address], [address] [address] [address] BRAIN WO IVCONon 05-12-[address] BRAIN WO IVCON * * *Final Report* * * DATE OF EXAM: May 12 2024 8:30AM FVC 0504 - CT BRAIN WO IVCON / PROCEDURE REASON: Memory loss * * * * Physician Interpretation * * * * EXAMINATION: CT BRAIN WO IVCON CLINICAL HISTORY: Memory loss TECHNIQUE: Serial axial images without IV contrast were obtained from the vertex to the foramen magnum. MQ: CTBWO_3 CT Radiation dose: Integrated Dose-Length Product (DLP) for this visit = 748 mGy*cm CT Dose Reduction Employed: Automated exposure control (AEC) COMPARISON: Brain MRI dated 02/08/2022 RESULT: Post-operative change: None. Acute change: No evidence of an acute infarct or other acute parenchymal process. Hemorrhage: No evidence of acute intracranial hemorrhage. ECASS hemorrhagic transformation score: Not Applicable Mass Lesion / Mass Effect: There is no evidence of an intracranial mass or extraaxial fluid collection. No significant mass effect. Chronic change: Scattered patchy foci of low attenuation are present within supratentorial white matter which is a nonspecific finding but likely represents mild microvascular ischemia. Parenchyma: There is moderate generalized volume loss. Ventricles: Ventricular enlargement concordant with the degree of parenchymal volume loss. Paranasal sinuses and skull base: The visualized paranasal sinuses are grossly clear. The skull base and imaged soft tissues are unremarkable. Localizer images: No additional findings. IMPRESSION: NO CT EVIDENCE OF ACUTE INTRACRANIAL PROCESS. Parts Delivery Driver: TERRENCE Transcribe Date/Time: May 12 2024 3:59P Dictated by : FIDEL DAVIDSON MD This examination was interpreted and the report reviewed and electronically signed by: FIDEL DAVIDSON MD on May 12 2024 4:07PM EST [id number] Normal [facility] CT Head WO contraston 2023 IMPRESSION: NO CT EVIDENCE OF ACUTE INTRACRANIAL PROCESS. Parts Delivery Driver: [facility] Transcribe Date/Time: May 12 2024 3:59P Dictated by : FIDEL DAVIDSON MD This examination was interpreted and the report reviewed and electronically signed by: FIDEL DAVIDSON MD on May 12 2024 4:07PM EST [facility] * * *Final Report* * * DATE OF EXAM: May 12 2024 8:30AM FVC 0504 - CT BRAIN WO IVCON / PROCEDURE REASON: Memory loss * * * * Physician Interpretation * * * * EXAMINATION: CT BRAIN WO IVCON CLINICAL HISTORY: Memory loss TECHNIQUE: Serial axial images without IV contrast were obtained from the vertex to the foramen magnum. MQ: CTBWO_3 CT Radiation dose: Integrated Dose-Length Product (DLP) for this visit = 748 mGy*cm CT Dose Reduction Employed: Automated exposure control (AEC) COMPARISON: Brain MRI dated 02/08/2022 RESULT: Post-operative change: None. Acute change: No evidence of an acute infarct or other acute parenchymal process. Hemorrhage: No evidence of acute intracranial hemorrhage. ECASS hemorrhagic transformation score: Not Applicable Mass Lesion / Mass Effect: There is no evidence of an intracranial mass or extraaxial fluid collection. No significant mass effect. Chronic change: Scattered patchy foci of low attenuation are present within supratentorial white matter which is a nonspecific finding but likely represents mild microvascular ischemia. Parenchyma: There is moderate generalized volume loss. Ventricles: Ventricular enlargement concordant with the degree of parenchymal volume loss. Paranasal sinuses and skull base: The visualized paranasal sinuses are grossly clear. The skull base and imaged soft tissues are unremarkable. Localizer images: No additional findings. [facility] Provider, [facility]/12/2024 * * *Final Report* * * DATE OF EXAM: May 12 2024 8:30AM FVC 0504 - CT BRAIN WO IVCON / PROCEDURE REASON: Memory loss * * * * Physician Interpretation * * * * EXAMINATION: CT BRAIN WO IVCON CLINICAL HISTORY: Memory loss TECHNIQUE: Serial axial images without IV contrast were obtained from the vertex to the foramen magnum. MQ: CTBWO_3 CT Radiation dose: Integrated Dose-Length Product (DLP) for this visit = 748 mGy*cm CT Dose Reduction Employed: Automated exposure control (AEC) COMPARISON: Brain MRI dated 02/08/2022 RESULT: Post-operative change: None. Acute change: No evidence of an acute infarct or other acute parenchymal process. Hemorrhage: No evidence of acute intracranial hemorrhage. ECASS hemorrhagic transformation score: Not Applicable Mass Lesion / Mass Effect: There is no evidence of an intracranial mass or extraaxial fluid collection. No significant mass effect. Chronic change: Scattered patchy foci of low attenuation are present within supratentorial white matter which is a nonspecific finding but likely represents mild microvascular ischemia. Parenchyma: There is moderate generalized volume loss. Ventricles: Ventricular enlargement concordant with the degree of parenchymal volume loss. Paranasal sinuses and skull base: The visualized paranasal sinuses are grossly clear. The skull base and imaged soft tissues are unremarkable. Localizer images: No additional findings. IMPRESSION IMPRESSION: NO CT EVIDENCE OF ACUTE INTRACRANIAL PROCESS. Parts Delivery Driver: TERRENCE Transcribe Date/Time: May 12 2024 3:59P Dictated by : FIDEL DAVIDSON MD This examination was interpreted and the report reviewed and electronically signed by: FIDEL DAVIDSON MD on May 12 2024 4:07PM EST [facility] Radiology Study observation (narrative) [facility] CT Head WO contrastOrdered B y: [facility] Provider on 05-12-2024 [facility] CNOVon 05-04-2024 CNOV Office Visit (NEIND4 ) SAMIR CASTILLO ([id number]) 1955 M Date Time Provider Department 05/04/24 9:30 AM EBONY TRENT NEIND4 During your visit today, we recorded the following information about you: Pulse Blood pressure Weight Height 57/minute 138/63 80.5 kg 1.676 m Ebony Trent DO 05/04/2024 10:17 PM Signed [facility] Follow up/ Established patient visit Individuals who were included in, or assisted with the encounter were: Samir Castillo Ebony Black DO Chief Complaint/Issues: Samir Castillo is a 69 year old male seen in the [facility] for [facility] Neurology for: Memory loss Most Recent Neurological Assessment and Plan: Last Filed Values Date of Most Recent Assessment and Plan 08/15/22 Specialty General Neurology Assessment Mr. Castillo is a 67 year old man with MCI, largely attributed to severe JITENDRA and depression. Plan He was told work with his providers for the depression and JITENDRA. We will re-evaluate things in 6 months HPI/Interval History: Here for follow-up, last seen in August. He is accompanied by two daughters. At that time he had recently been diagnosed with sleep apnea. He admits to not using CPAP mask at all. It is difficult to tolerate. He has some balance issues, cannot walk far. Has fallen about a week ago. Locked himself out of the house, fell climbing back in. Tends to lean to the right while walking, which started a few months ago. Depression not well controlled, denies SI. PCP took over medications. No adjustment in 3 Has HANGERSMITH s He denies hallucinations. MOCA December 2021 was 16. He thought someone was knocking on the door, nobody was there. Appetite is good. He lives alone. Does not have social interaction much, lives by himself. Does not want to live with his daughtes. Fell in pond, could not get out. Has not done PT lately. One fall was resulted in fractured, torna rotator cuff on the left. General Examination: There were no vitals taken for this visit. General: Awake, alert, interactive, no acute distress, good nutritional status, normal development, well-kept Skin: Rash: absent Pigmentation: absent HEENT: Head: normocephalic, no dysmorphism Eyes: normal Oropharynx: normal Extremities: Edema: absent Trophic change: absent Heart: RRR, no cyanosis Lungs: Chest rise symmetrical Neurological Exam Mental Status Alert, fully oriented, attentive Cranial Nerves Visual wilson intact. Fundi with [...] Deep tendon reflexes graded by MRC Gait Leaning to the right when walking Assessment AND Plan 05/04/2024 - General Neurology, Ebony Black, DO ASSESSMENT Mr. Castillo is a 69 year old man with prior MCI on neuropsych previously described as largely due to depression and untreated sleep apnea. Memory worse since the last two years since the test was last done. Also some new gait imbalance of unclear etiology. PLAN CT brain PT Encouraged to talk to prescriber of CPAP for additional mask options Neuropsych re-referral Follow-up after neuropsych testing No diagnosis found. No follow-ups on file. [...] Take 43 mg by mouth twice daily. isos (more content not included)... Normal [facility] COMPLETE BLOOD COUNTon 03-25 Erythrocyte distribution width (RBC) [Ratio] 14.6 % Normal 11.5-15.0 [facility] Comment on above: Performed By: #### C , 04150-2, 3084-1, [facility], 2731-8, 30588-8 #### [facility] ([id number]) [address], [address] [place] [address] Hematocrit (Bld) [Volume fraction] 36.3 % Low 39-49 [facility] Comment on above: Performed By: #### C , 10451-1, 3084-1, [facility], 2731-8, 78234-4 #### [facility] ([id number]) [address] [place] [address] Hemoglobin (Bld) [Mass/Vol] 12.1 g/dL Low 13.0-17.0 [facility] Comment on above: Performed By: #### Ben ALVARADO, , 3083-08, [facility], 2730-8, 93330-5 #### [facility] ([id number]) [address], [address] [place] [address] MCH (RBC) [Entitic mass] 29.7 pg Normal 27-34 [facility] Comment on above: Performed By: #### Ben ALVARADO, , 3083-08, UP, 2730-8, 55340-0 #### [facility] ([id number]) [address], [address] [place] [address] MCHC (RBC) [Mass/Vol] 33.2 g/dL Normal 32-36 [facility] Comment on above: Performed By: #### Ben ALVARADO, , 3083-08, [facility], 2730-, 20772-0 #### [facility] ([id number]) [address], [address] [place] [address] MCV (RBC) [Entitic vol] 90 fL Normal 80-100 [facility] Comment on above: Performed By: #### Ben ALVARADO, , 3083-08, UP, 2730-, 00781-1 #### [facility] ([id number]) [address], [address] [place] [address] Platelet mean volume (Bld) [Entitic vol] 7.6 fL Normal 7-12 [facility] Comment on above: Performed By: #### Ben ALVARADO, , 3083-08, [facility], 2730-8, 34124-5 #### [facility] ([id number]) [address], [address] [place] [address] Platelets (Bld) [#/Vol] 176 10*3/uL Normal 150-450 [facility] Comment on above: Performed By: #### Ben ALVARADO, , 3083-08, [facility], 2731-8, 66320-1 #### [facility] ([id number]) [address], [address] [place] [address] RBC COUNT 4.06 X10E12/L Low 4.10-5.70 [facility] Comment on above: Performed By: #### [place], 18182-3, 3083-, [facility], 2731-8, 17315-5 #### [facility] ([id number]) [address], [address] [place] [address] WBC (Bld) [#/Vol] 7.3 10*3/uL Normal 4.0-11.0 [facility] Comment on above: Performed By: #### Ben ALVARADO, 43973-3, 3083-, [facility], 2730-8, 83398-1 #### [facility] ([id number]) [address], [address] [place] [address] MAGNESIUMon 03-25-2024 Magnesium [Mass/Vol] 1.9 mg/dL Normal 1.8-2.6 [facility] Comment on above: Performed By: #### Ben ALVARADO, , 3083-08, [facility], 2730-8, 72746-5 #### [facility] ([id number]) [address], [address] [place] [address] PROTEIN CREAT RATIOon 2023 RANDOM URINE PROTEIN 70 mg/L Normal <120 [facility] Comment on above: Performed By: #### [place], 01273-0, 3083-, [facility], 2731-8, 24553-3 #### [facility] ([id number]) [address], [address] [place] [address] U/PRO/CUSTOMER SECURITY CLERK RATIO CALC 0.07 Normal <0.2 [facility] Comment on above: Result Comment: Neph rotic Syndrome is associated with ratios >3.5 Performed By: #### Ben ALVARADO, 08425-1, 3084-1, [facility], 2731-8, 78340-5 #### [facility] ([id number]) [address], [address] [place] [address] URINE CREATININE,RDM 96.58 mg/dL Normal [facility] Comment on above: Performed By: #### C , 08917-2, 3084-1, [facility], 2731-8, 18787-6 #### [facility] ([id number]) [address], [address] [place] [address] Parathyrin.intact [Mass/Vol] on 03-25-2024 PTH INTACT 32 pg/mL Normal 12-88 [facility] Comment on above: Performed By: #### Ben , 66618-5, 3084-1, [facility], 2731-8, 43905-4 #### [facility] ([id number]) [address], [address] [place] [address] RENAL PANELon 03-25-2024 Albumin [Mass/Vol] 4.0 g/dL Normal 3.2-5.3 [facility] Comment on above: Performed By: #### R ENAL #### [facility] ([id number]) [address] [place] [address] Anion gap [Moles/Vol] 9 mmol/L Normal 5-15 [facility] Comment on above: Performed By: #### R ENAL #### [facility] ([id number]) [address], [address] [place] [address] Calcium [Mass/Vol] 9.5 mg/dL Normal 8.5-10.5 [facility] Comment on above: Performed By: #### R ENAL #### [facility] ([id number]) [address], [address] [place] [address] Chloride [Moles/Vol] 109 mmol/L Normal 98-109 [facility] Comment on above: Performed By: #### R ENAL #### [facility] ([id number]) [address], [address] [place] [address] CO2 [Moles/Vol] 24 mmol/L Normal 22-32 [facility] Comment on above: Performed By: #### R ENAL #### [facility] ([id number]) [address], [address] [place] [address] Creatinine [Mass/Vol] 1.79 mg/dL High 0.60-1.30 [facility] Comment on above: Result Comment: METH OD TRACEABLE TO IDMS STANDARD Performed By: #### R ENAL #### [facility] ([id number]) [address], [address] [place] [address] GFR/1.73 sq M.predicted among non-blacks MDRD (S/P/Bld) [Vol rate/Area] 40 mL/min/{1.73_m2} Low >59 [facility] Comment on above: Result Comment: Reported eGFR is based on the CKD-EPI 2020 equation that does not use a race coefficient. Performed By: #### R ENAL #### [facility] ([id number]) [address] [place] [address] Glucose [Mass/Vol] 79 mg/dL Normal 65-99 [facility] Comment on above: Performed By: #### R ENAL #### [facility] ([id number]) [address], [address] [place] [address] Phosphate [Mass/Vol] 4.0 mg/dL Normal 2.4-4.9 [facility] Comment on above: Performed By: #### R ENAL #### [facility] ([id number]) [address], [address] [place] [address] Potassium [Moles/Vol] 4.8 mmol/L Normal 3.5-5.0 [facility] Comment on above: Performed By: #### R ENAL #### [facility] ([id number]) [address], [address] [place] [address] Sodium [Moles/Vol] 142 mmol/L Normal 134-146 [facility] Comment on above: Performed By: #### R ENAL #### [facility] ([id number]) [address], [address] [place] [address] Urea nitrogen [Mass/Vol] 28 mg/dL High 5-27 [facility] Comment on above: Performed By: #### R ENAL #### [facility] ([id number]) [address], [address] [place] [address] URIC ACIDon 03-25-2024 Urate [Mass/Vol] 6.6 mg/dL Normal 2.6-7.2 [facility] Comment on above: Performed By: #### C BC, 71109-7, 3084-1, [facility], 2731-8, 27974-9 #### [facility] ([id number]) [address], [address] [place] [address] URINALYSISon 03-25-2024 Bilirubin Ql (U) Negative Normal NEG [facility] Comment on above: Performed By: #### U A #### [facility] ([id number]) [address], [address] [place] [address] BLOOD/HGB Negative Normal NEG [facility] Comment on above: Performed By: #### U A #### [facility] ([id number]) [address], [address] [place] [address] Color (U) YELLOW Normal YELLOW [facility] Comment on above: Performed By: #### U A #### [facility] ([id number]) [address], [address] [place] [address] Glucose Ql (U) Negative Normal NEG [facility] Comment on above: Performed By: #### U A #### [facility] ([id number]) [address], [address] [place] [address] Ketones Ql (U) Negative Normal NEG [facility] Comment on above: Performed By: #### U A #### [facility] ([id number]) [address] [place] [address] Leukocyte esterase Test strip Ql (U) Negative Normal NEG [facility] Comment on above: Performed By: #### U A #### [facility] ([id number]) [address] [facility], [address] [place] [address] Nitrite Ql (U) Negative Normal NEG [facility] Comment on above: Performed By: #### U A #### [facility] ([id number]) [address] [place] [address] pH (U) 5.5 [pH] Normal 5.0-8.5 [facility] Comment on above: Performed By: #### U A #### [facility] ([id number]) [facility] [place] [address] Protein Ql (U) Negative Normal NEG [facility] Comment on above: Performed By: #### U A #### [facility] ([id number]) [address], [address] [place] [address] Specific gravity (U) [Rel density] 1.018 Normal 1.003-1.035 [facility] Comment on above: Performed By: #### U A #### [facility] ([id number]) [address], [address] [place] [address] TURBIDITY CLEAR Normal CLEAR [facility] Comment on above: Performed By: #### U A #### [facility] ([id number]) [address] [facility] [place] [address] Urobilinogen (U) [Mass/Vol] mg/dL Normal <1.1 [facility] Comment on above: Performed By: #### U A #### [facility] ([id number]) [address] [place] [address] Vitamin D+Metabolites [Mass/ Vol]on 03-25-2024 VITAMIN D 25 HYD TOT 74.2 ng/mL Normal 30-100 [facility] Comment on above: Result Comment: Vitamin D status 25 [place] Vitamin D Deficiency <20 ng/mL Insufficiency 20-29 ng/mL Sufficiency 30-100 ng/mL Toxicity >100 ng/mL NOTE: A pediatric reference range has not been established by the farm management agent of this kit. The [place] [employer] recommends a Vitamin D level of = or >20ng/mL in infants and children. Performed By: #### C , 12714-4, 3084-1, [facility], 2731-8, 39349-7 #### [facility] ([id number]) [address], [address] [place] [address] XR CHEST 2 VWSon 02-26-2024 XR CHEST 2 VWS XR CHEST 2 VWS XR CHEST 2 VWS HISTORY: Cough COMPARISON: None FINDINGS: PA and lateral upright films obtained. The trachea is midline. Cardiomediastinal contour within normal limits. No focal consolidation. No pleural effusion or pneumothorax. Right apical pleural thickening. Right rib cage deformity from prior surgery with metallic clips in the right hilar region and postoperative diminished volume of the right lung with elevated right hemidiaphragm likely from prior lobectomy. Sternotomy wires appear intact and unchanged. Left lung and costophrenic recess are relatively clear with vascular calcification in the descending thoracic and abdominal aorta. IMPRESSION: * Diminished volume of the right hemithorax and shift of the mediastinum to the right side with metallic clips in the right hilum likely from prior lobectomy with right apical pleural thickening. Rib cage deformity from prior resection. * No other acute pulmonary pathology appreciated. Finalized by Harsh Andrade MD on 02/26/2024 2:27 PM Normal [facility] CT abdomen pelvis wo conon 0 04-09-2023 CT abdomen pelvis wo con [facility] [place] [address] [place] [address] CT Scan Report Signed Patient: Kel Castillo Jr MR#: [id number] : 1955 Acct:[id number] Age/Sex: 67 / M ADM Date: 04/09/23 Loc: ER Room: Type: [facility] ER Attending Dr: Copies to: Lucy Cope [...] Damien Negrete M.D.04/09/2023 2:28 PM Dictation Location: [place] [address] Transcribed By: [facility] 04/09/23 1428 Dictated By: Damien Negrete DO 04/09/23 1422 Signed By: 04/09/23 1428 Normal [facility] Complete Blood Count Auto Di ffon 04-09-2023 Basophils (Bld) [#/Vol] 0.1 10*3/uL Normal 0.0-0.2 [facility] Comment on above: Result Comment: PERF ORMED BY: [place] [address] PATHOLOGIST DATA CONTROL ASSISTANT TROY SIGALA M.D. Performed By: #### C BC #### [address] Basophils/100 WBC (Bld) 1.0 % Normal . [facility] Comment on above: Performed By: #### C BC #### [address] Eosinophils (Bld) [#/Vol] 0.2 10*3/uL Normal 0.0-0.45 [facility] Comment on above: Performed By: #### C BC #### [address] Eosinophils/100 WBC (Bld) 2.8 % Normal . [facility] Comment on above: Performed By: #### C BC #### [address] Erythrocyte distribution width (RBC) [Ratio] 14.5 % Normal 12.0-14.8 [facility] Comment on above: Performed By: #### C BC #### [address] Hematocrit (Bld) [Volume fraction] 39.2 % Normal 38.8-50.0 [facility] Comment on above: Performed By: #### C BC #### [address] Hemoglobin (Bld) [Mass/Vol] 13.0 g/dL Normal 13.0-17.0 [facility] Comment on above: Performed By: #### C BC #### [facility] [address] Lymphocytes (Bld) [#/Vol] 1.1 10*3/uL Normal 1.00-4.8 [facility] Comment on above: Performed By: #### C BC #### [address] Lymphocytes/100 WBC (Bld) 14.1 % Normal . [facility] Comment on above: Performed By: #### C BC #### [address] MCH (RBC) [Entitic mass] 30.4 pg Normal 27.5-35.2 [facility] Comment on above: Performed By: #### C BC #### [address] MCV (RBC) [Entitic vol] 91.5 fL Normal 83.5-101 [facility] Comment on above: Performed By: #### C BC #### [address] Mean Corpuscular HGB Conc 33.2 g/dL Normal 32.5-35.6 [facility] Comment on above: Performed By: #### C BC #### [address] Monocytes (Bld) [#/Vol] 0.5 10*3/uL Normal 0.0-0.8 [facility] Comment on above: Performed By: #### C BC #### [place] [address] [place] Monocytes/100 WBC (Bld) 16.97 % Normal 0.00-20.00 [facility] Comment on above: Performed By: #### C BC #### [address] Monocytes/100 WBC (Bld) 6.6 % Normal . [facility] Comment on above: Performed By: #### C BC #### [address] Neutrophils (Bld) [#/Vol] 5.9 10*3/uL Normal 1.8-7.7 [facility] Comment on above: Performed By: #### C BC #### [address] Neutrophils/100 WBC (Bld) 75.5 % Normal . [facility] Comment on above: Performed By: #### C BC #### [address] NRBC% 0.0 /100{WBC} Normal 0-0.5 [facility] Comment on above: Performed By: #### C BC #### [address] Platelet mean volume (Bld) [Entitic vol] 7.5 fL Normal 6.6-10.1 [facility] Comment on above: Performed By: #### C BC #### [address] Platelets (Bld) [#/Vol] 180 10*3/uL Normal 150-450 [facility] Comment on above: Performed By: #### C BC #### [address] RBC (Bld) [#/Vol] 4.29 10*6/uL Normal 3.90-5.60 [facility] Comment on above: Performed By: #### C BC #### [address] WBC (Bld) [#/Vol] 7.8 10*3/uL Normal 4.1-10.5 [facility] Comment on above: Performed By: #### C BC #### [address] Comprehensive Metabolic Pane noe 04-09-2023 Albumin [Mass/Vol] 4.3 g/dL Normal 3.5-5.7 [facility] Comment on above: Performed By: #### P TT, LIPASE, PT, CMP #### [address] [place] [address] [place] Albumin/Globulin [Mass ratio] 1.2 {ratio} Normal [facility] Comment on above: Performed By: #### P TT, LIPASE, PT, CMP #### [facility] [address] ALP [Catalytic activity/Vol] 105 U/L High 34-104 [facility] Comment on above: Performed By: #### P TT, LIPASE, PT, CMP #### [facility] [address] ALT [Catalytic activity/Vol] 61 U/L High 7-52 [facility] Comment on above: Performed By: #### P TT, LIPASE, PT, CMP #### [address] Anion gap [Moles/Vol] 12.5 mmol/L Normal 6.0-15.0 [facility] Comment on above: Performed By: #### P TT, LIPASE, PT, CMP #### [address] AST [Catalytic activity/Vol] 62 U/L High 13-39 [facility] Comment on above: Performed By: #### P TT, LIPASE, PT, CMP #### [address] Bilirubin [Mass/Vol] 0.8 mg/dL Normal 0.3-1.0 [facility] Comment on above: Performed By: #### P TT, LIPASE, PT, CMP #### [address] Calcium [Mass/Vol] 9.0 mg/dL Normal 8.6-10.3 [facility] Comment on above: Performed By: #### P TT, LIPASE, PT, CMP #### [address] Chloride [Moles/Vol] 107 mmol/L Normal 98-107 [facility] Comment on above: Performed By: #### P TT, LIPASE, PT, CMP #### [address] CO2 [Moles/Vol] 25.1 mmol/L Normal 21.0-31.0 [facility] Comment on above: Performed By: #### P TT, LIPASE, PT, CMP #### [address] Creatinine [Mass/Vol] 1.76 mg/dL High 0.70-1.30 [facility] Comment on above: Performed By: #### P TT, LIPASE, PT, CMP #### [place] [address] [place] Creatinine Clr Calc Pharmacy 40.17 [facility] Comment on above: Performed By: #### P TT, LIPASE, PT, CMP #### [place] [address] [place] GFR/1.73 sq M.predicted MDRD (S/P/Bld) [Vol rate/Area] 41.342 mL/min/{1.73_m2} [facility] Comment on above: Performed By: #### P TT, LIPASE, PT, CMP #### [address] Globulin (S) [Mass/Vol] 3.7 g/dL [facility] Comment on above: Performed By: #### P TT, LIPASE, PT, CMP #### [address] Glucose [Mass/Vol] 89 mg/dL Normal 70-100 [facility] Comment on above: Result Comment: [place] Glucose Reference Range is dependent on time and content of last meal. Glucose of more than 200 mg/dL in a nonstressed, ambulatory subject supports the diagnosis of Diabetes Mellitus. ADA recommended reference range Performed By: #### P TT, LIPASE, PT, CMP #### [address] Potassium [Moles/Vol] 4.6 mmol/L Normal 3.5-5.1 [facility] Comment on above: Performed By: #### P TT, LIPASE, PT, CMP #### [address] [place] [address] [place] Protein [Mass/Vol] 8.0 g/dL Normal 6.4-8.9 [facility] Comment on above: Performed By: #### P TT, LIPASE, PT, CMP #### [facility] [address] [place] [address] [place] Sodium [Moles/Vol] 140 mmol/L Normal 136-145 [facility] Comment on above: Performed By: #### P TT, LIPASE, PT, CMP #### [facility] [address] [place] [address] [place] Urea nitrogen [Mass/Vol] 25 mg/dL Normal 7-25 [facility] Comment on above: Performed By: #### P TT, LIPASE, PT, CMP #### [facility] [address] [place] [address] [place] Dipstick and Microscopicon 0 04-09-2023 Appearance (U) Cloudy Critically abnormal Clear [facility] Comment on above: Order Comment: Name Collection Type:: Clean-Voided Midstream Performed By: #### A DDONUAPLUS #### [facility] [address] [place] [address] [place] Bacteria,Urine None Seen Normal None Seen [facility] Comment on above: Order Comment: Name Collection Type:: Clean-Voided Midstream Performed By: #### A DDONUAPLUS #### [facility] [address] [place] [address] [place] Bilirubin,Urine Negative Normal Negative [facility] Comment on above: Order Comment: Name Collection Type:: Clean-Voided Midstream Performed By: #### A DDONUAPLUS #### [facility] [address] [place] [address] [place] Color (U) Yellow Normal Yellow [facility] Comment on above: Order Comment: Name Collection Type:: Clean-Voided Midstream Performed By: #### A DDONUAPLUS #### [facility] [address] [place] [address] [place] Glucose Ql (U) Normal Normal Normal [facility] Comment on above: Order Comment: Name Collection Type:: Clean-Voided Midstream Performed By: #### A DDONUAPLUS #### [facility] [address] [place] [address] [place] Hyaline Casts,Urine None Seen Normal 0-8 [facility] Comment on above: Order Comment: Name Collection Type:: Clean-Voided Midstream Result Comment: PERF ORMED BY: [place] [address] PATHOLOGIST DATA CONTROL ASSISTANT TROY SIGALA M.D. Performed By: #### A DDONUAPLUS #### [place] [address] [place] Ketones Ql (U) Negative Normal Negative [facility] Comment on above: Order Comment: Name Collection Type:: Clean-Voided Midstream Performed By: #### A DDONUAPLUS #### [place] [address] [place] Leukocyte esterase Test strip Ql (U) Negative Normal Negative [facility] Comment on above: Order Comment: Name Collection Type:: Clean-Voided Midstream Performed By: #### A DDONUAPLUS #### [place] [address] [place] Nitrite,Urine Negative Normal Negative [facility] Comment on above: Order Comment: Name Collection Type:: Clean-Voided Midstream Performed By: #### A DDONUAPLUS #### [place] [address] [place] Occult Blood,Urine Negative Normal Negative [facility] Comment on above: Order Comment: Name Collection Type:: Clean-Voided Midstream Result Comment: PERF ORMED BY: [place] [address] PATHOLOGIST DATA CONTROL ASSISTANT TROY SIGALA M.D. Performed By: #### A DDONUAPLUS #### [facility] [address] [place] [address] [place] pH (U) 5.5 [pH] Normal 5.0-9.0 [facility] Comment on above: Order Comment: Name Collection Type:: Clean-Voided Midstream Performed By: #### A DDONUAPLUS #### [facility] [address] [place] [address] Protein,Urine Negative Normal Negative [facility] Comment on above: Order Comment: Name Collection Type:: Clean-Voided Midstream Performed By: #### A DDONUAPLUS #### [facility] [address] [place] [address] RBC LM.HPF (Urine sed) [#/Area] 0 /[HPF] Normal 0-4 [facility] Comment on above: Order Comment: Name Collection Type:: Clean-Voided Midstream Performed By: #### A DDONUAPLUS #### [address] Specificy [place],Urine 1.014 Normal 1.001-1.030 [facility] Comment on above: Order Comment: Name Collection Type:: Clean-Voided Midstream Performed By: #### A DDONUAPLUS #### [address] Squamous Epithelial Cell,Urine None Seen Normal 0-2 [facility] Comment on above: Order Comment: Name Collection Type:: Clean-Voided Midstream Performed By: #### A DDONUAPLUS #### [address] Urobilinogen,Urine Normal Normal Normal [facility] Comment on above: Order Comment: Name Collection Type:: Clean-Voided Midstream Performed By: #### A DDONUAPLUS #### [facility] [address] [place] [address] WBC LM.HPF (Urine sed) [#/Area] 0 /[HPF] Normal 0-4 [facility] Comment on above: Order Comment: Name Collection Type:: Clean-Voided Midstream Performed By: #### A DDONUAPLUS #### [address] Lipaseon 04-09-2023 Lipase [Catalytic activity/Vol] 92.0 U/L High 11.0-82.0 [facility] Comment on above: Result Comment: PERF ORMED BY: [place] [address] PATHOLOGIST DATA CONTROL ASSISTANT TROY SIGALA M.D. Performed By: #### P TT, LIPASE, PT, CMP #### [address] Partial Thromboplastin Timeo n 04-09-2023 aPTT Coag (Bld) [Time] 30.9 s Normal 25.1-36.5 [facility] Comment on above: Result Comment: PERF ORMED BY: [place] [address] PATHOLOGIST DATA CONTROL ASSISTANT TROY SIGALA M.D. Performed By: #### P TT, LIPASE, PT, CMP #### [address] Prothrombin Time INRon 04-09 INR Coag (PPP) [Relative time] 1.0 {INR} Normal [facility] Comment on above: Result Comment: [...] #### P TT, LIPASE, PT, CMP #### [facility] [address] [place] [address] PT Coag (PPP) [Time] 11.9 s Normal 9.0-12.9 [facility] Comment on above: Performed By: #### P TT, LIPASE, PT, CMP #### [facility] [address] [place] [address] CBC AUTO DIFFon 07-27-2022 BASO # 0.1 103/ul Normal 0.0-0.1 [facility] Comment on above: Performed By: #### C BC #### [facility] [address] [address] [address] Hattie Newsome Basophils/100 WBC (Bld) 0.8 % Normal 0.2-2.0 [facility] Comment on above: Performed By: #### C BC #### [facility] [address] [place] [address] Dr. Hattie Newsome EO # 0.3 103/ul Normal 0.0-0.7 [facility] Comment on above: Performed By: #### C BC #### [facility] [address] [place] [address] Dr. Hattie Newsome Eosinophils/100 WBC (Bld) 3.2 % Normal 0.9-7.0 [facility] Comment on above: Performed By: #### C BC #### [facility] [address] [place] [address] Dr. Hattie Newsome Erythrocyte distribution width (RBC) [Ratio] 14.3 % Normal 11.0-15.0 [facility] Comment on above: Performed By: #### C BC #### [facility] [address] [place] [address] Dr. Hattie Newsome Hematocrit (Bld) [Volume fraction] 39.7 % Critically low 42.0-54.0 [facility] Comment on above: Performed By: #### C BC #### [facility] [address] [place] [address] Dr. Hattie Newsome Hemoglobin (Bld) [Mass/Vol] 13.0 g/dL Critically low 14.0-18.0 [facility] Comment on above: Performed By: #### C BC #### [facility] [address] [place] [address] Dr. Hattie Newsome IG # 0.06 10e3/ul Critically high 0.00-0.03 [facility] Comment on above: Performed By: #### C BC #### [facility] [address] [place] [address] Dr. Hattie Newsome IG % 0.8 % Critically high 0.0-0.5 [facility] Comment on above: Performed By: #### C BC #### [facility] [address] [place] [address] Dr. Hattie Newsome LYMPH # 1.3 103/ul Normal 1.2-3.8 [facility] Comment on above: Performed By: #### C BC #### [facility] [address] [place] [address] Dr. Hattie Newsome Lymphocytes/100 WBC (Bld) 16.8 % Critically low 20.5-60.0 [facility] Comment on above: Performed By: #### C BC #### [facility] [address] [place] [address] Dr. Hattie Newsome MANUAL DIFF REQ NO Normal [facility] Comment on above: Performed By: #### C BC #### [facility] [address] [place] [address] Dr. Hattie Newsome MCH (RBC) [Entitic mass] 30.5 pg Normal 25.9-34.0 [facility] Comment on above: Performed By: #### C BC #### [facility] [address] [place] [address] Dr. Hattie Newsome MCHC (RBC) [Mass/Vol] 32.7 g/dL Normal 29.9-35.2 [facility] Comment on above: Performed By: #### C BC #### [facility] [address] [place] [address] Dr. Hattie Newsome MCV (RBC) [Entitic vol] 93.2 fL Normal 80.0-94.0 [facility] Comment on above: Performed By: #### C BC #### [facility] [address] [place] [address] Dr. Hattie Newsome MONO # 0.5 103/ul Normal 0.3-0.8 [facility] Comment on above: Performed By: #### C BC #### [facility] [address] [place] [address] Dr. Hattie Newsome Monocytes/100 WBC (Bld) 7.0 % Normal 1.7-12.0 [facility] Comment on above: Performed By: #### C BC #### [facility] [address] [place] [address] Dr. Hattie Newsome NEUT # 5.5 103/ul Normal 1.4-6.5 [facility] Comment on above: Performed By: #### C BC #### [facility] [address] [address] [address] Hattie Newsome Neutrophils/100 WBC (Bld) 71.4 % Normal 43.0-75.0 [facility] Comment on above: Performed By: #### C BC #### [facility] [address] [address] [address] Hattie Newsome Platelet mean volume (Bld) [Entitic vol] 9.4 fL Critically low 9.5-13.5 [facility] Comment on above: Performed By: #### C BC #### [facility] [address] [address] [address] Hattie Newsome PLT 169 103/ul Normal 150-450 [facility] Comment on above: Performed By: #### C BC #### [facility] [address] [place] [address] Dr. Hattie Newsome RBC 4.26 106/ul Critically low 4.70-6.10 [facility] Comment on above: Performed By: #### C BC #### [facility] [address] [place] [address] Dr. Hattie Newsome WBC 7.7 103/ul Normal 4.0-11.0 [facility] Comment on above: Performed By: #### C BC #### [facility] [address] [place] [address] Dr. Hattie Newsome LIPID PROFILEon 07-27-2022 CHOL-HDL RATIO NORM SEE BELOW Normal [facility] Comment on above: Result Comment: 3.3 - 4.4 LOW RISK 4.4 - 7.1 AVERAGE RISK 7.1 - 11.0 MODERATE RISK >11.0 HIGH RISK Performed By: #### L IPID #### [facility] [address] [place] [address] Dr. Hattie Newsome Cholesterol [Mass/Vol] 131 mg/dL Normal <=200 [facility] Comment on above: Performed By: #### L IPID #### [facility] [address] [place] [address] Dr. Hattie Newsome Cholesterol in HDL [Mass/Vol] 40 mg/dL Normal 40-60 [facility] Comment on above: Performed By: #### L IPID #### [facility] [address] [place] [address] Dr. Hattie Newsome Cholesterol in LDL [Mass/Vol] 64.6 mg/dL Normal [facility] Comment on above: Performed By: #### L IPID #### [facility] [address] [address] [address] Hattie Newsome Cholesterol.total/C holesterol in HDL [Mass ratio] 3.3 {ratio} Normal [facility] Comment on above: Performed By: #### L IPID #### [facility] [address] [place] [address] Dr. Hattie Newsome HDL NORMAL > or = 60 mg/dl - LO W CARDIOVASCULAR RISK <40 mg/dl - HIGH CARDIOVASCULAR RISK Normal [facility] Comment on above: Performed By: #### L IPID #### [facility] [address] [place] [address] Dr. Hattie Newsome LDL CALC NORMAL SEE BELOW Normal [facility] Comment on above: Result Comment: <100 mg/dl OPTIMAL 100 - 129 mg/dl NEAR OR ABOVE OPTIMAL 130 - 159 mg/dl BORDERLINE HIGH 160 - 189 mg/dl HIGH >190 mg/dl VERY HIGH Performed By: #### L IPID #### [facility] [address] [place] [address] Dr. Hattie Newsome Triglyceride [Mass/Vol] 132 mg/dL Normal <=150 [facility] Comment on above: Performed By: #### L IPID #### [facility] [address] [place] [address] Dr. Hattie Newsome VLDL CALC 26.4 mg/dL Normal [facility] Comment on above: Performed By: #### L IPID #### [facility] [address] [place] [address] Dr. Hattie Newsome PARATHYROID HORMONE- RELATED PEPTIDEon 07-15-2022 PTHrP (PTH-Related Peptide) <2.0 Normal [facility] Comment on above: Result Comment: This test was developed and its performance characteristics determined by [facility]. It has not been cleared or approved [...] laboratory. Performed By: #### P THP #### [facility] [address] [place] [address] Dr. Hattie Newsome CBC AUTO DIFFon 07-07-2022 BASO # 0.1 103/ul Normal 0.0-0.1 [facility] Comment on above: Performed By: #### U BLANCA, CMP, MG #### [facility] [address] [place] [address] Dr. Hattie Newsome Basophils/100 WBC (Bld) 0.9 % Normal 0.2-2.0 [facility] Comment on above: Performed By: #### U BLANCA, CMP, MG #### [facility] [address] [place] [address] Dr. Hattie Newsome EO # 0.2 103/ul Normal 0.0-0.7 [facility] Comment on above: Performed By: #### U BLANCA, CMP, MG #### [facility] [address] [place] [address] Dr. Hattie Newsome Eosinophils/100 WBC (Bld) 3.4 % Normal 0.9-7.0 [facility] Comment on above: Performed By: #### U BLANCA, CMP, MG #### [facility] [address] [place] [address] Dr. Hattie Newsome Erythrocyte distribution width (RBC) [Ratio] 14.5 % Normal 11.0-15.0 [facility] Comment on above: Performed By: #### U BLANCA, CMP, MG #### [facility] [address] [place] [address] Dr. Hattie Newsome Hematocrit (Bld) [Volume fraction] 40.1 % Critically low 42.0-54.0 [facility] Comment on above: Performed By: #### U BLANCA, CMP, MG #### [facility] [address] [address] [address] Hattie Newsome Hemoglobin (Bld) [Mass/Vol] 13.6 g/dL Critically low 14.0-18.0 [facility] Comment on above: Performed By: #### U BLANCA, CMP, MG #### [facility] [address] [address] [address] Hattie Newsome IG # 0.04 10e3/ul Critically high 0.00-0.03 [facility] Comment on above: Performed By: #### U BLANCA, CMP, MG #### [facility] [address] [address] [address] Hattie Newsome IG % 0.6 % Critically high 0.0-0.5 [facility] Comment on above: Performed By: #### U BLANCA, CMP, MG #### [facility] [address] [place] [address] Dr. Hattie Newsome LYMPH # 0.9 103/ul Critically low 1.2-3.8 [facility] Comment on above: Performed By: #### U BLANCA, CMP, MG #### [facility] [address] [address] [address] Hattie Newsome Lymphocytes/100 WBC (Bld) 13.1 % Critically low 20.5-60.0 [facility] Comment on above: Performed By: #### U BLANCA, CMP, MG #### [facility] [address] [address] [address] Hattie Newsome MANUAL DIFF REQ NO Normal [facility] Comment on above: Performed By: #### U BLANCA, CMP, MG #### [facility] [address] [address] [address] Hattie Newsome MCH (RBC) [Entitic mass] 30.9 pg Normal 25.9-34.0 [facility] Comment on above: Performed By: #### U BLANCA, CMP, MG #### [facility] [address] [address] [address] Hattie Newsome MCHC (RBC) [Mass/Vol] 33.9 g/dL Normal 29.9-35.2 [facility] Comment on above: Performed By: #### U BLANCA, CMP, MG #### [facility] [address] [place] [address] Dr. Hattie Newsome MCV (RBC) [Entitic vol] 91.1 fL Normal 80.0-94.0 [facility] Comment on above: Performed By: #### U BLANCA, CMP, MG #### [facility] [address] [place] [address] Dr. Hattie Newsome MONO # 0.3 103/ul Normal 0.3-0.8 [facility] Comment on above: Performed By: #### U BLANCA, CMP, MG #### [facility] [address] [place] [address] Dr. Hattie Newsome Monocytes/100 WBC (Bld) 5.1 % Normal 1.7-12.0 [facility] Comment on above: Performed By: #### U BLANCA, CMP, MG #### [facility] [address] [place] [address] Dr. Hattie Newsome NEUT # 5.0 103/ul Normal 1.4-6.5 [facility] Comment on above: Performed By: #### U BLANCA, CMP, MG #### [facility] [address] [place] [address] Dr. Hattie Newsome Neutrophils/100 WBC (Bld) 76.9 % Critically high 43.0-75.0 [facility] Comment on above: Performed By: #### U BLANCA, CMP, MG #### [facility] [address] [place] [address] Dr. Hattie Newsome Platelet mean volume (Bld) [Entitic vol] 9.0 fL Critically low 9.5-13.5 [facility] Comment on above: Performed By: #### U BLANCA, CMP, MG #### [facility] [address] [place] [address] Dr. Hattie Newsome PLT 160 103/ul Normal 150-450 [facility] Comment on above: Performed By: #### U BLANCA, CMP, MG #### [facility] [address] [place] [address] Dr. Hattie Newsome RBC 4.40 106/ul Critically low 4.70-6.10 [facility] Comment on above: Performed By: #### U BLANCA, CMP, MG #### [facility] [address] [address] [address] Hattie Newsome WBC 6.5 103/ul Normal 4.0-11.0 [facility] Comment on above: Performed By: #### U BLANCA, CMP, MG #### [facility] [address] [address] [address] Hattie Newsome MAGNESIUMon 07-07-2022 Magnesium [Mass/Vol] 1.8 mg/dL Normal 1.8-2.4 [facility] Comment on above: Performed By: #### U BLANCA, CMP, MG #### [facility] [address] [address] [address] Hattie Newsome PROF 14(COMP METB)on 022 Albumin [Mass/Vol] 3.9 g/dL Normal 3.4-5.0 [facility] Comment on above: Performed By: #### U BLANCA, CMP, MG #### [facility] [address] [address] [address] Hattie Newsome Albumin/Globulin [Mass ratio] 1.0 {ratio} Normal [facility] Comment on above: Performed By: #### U BLANCA, CMP, MG #### [facility] [address] [address] [address] Hattie Newsome ALP [Catalytic activity/Vol] 136 U/L Critically high 46-116 [facility] Comment on above: Performed By: #### U BLANCA, CMP, MG #### [facility] [address] [address] [address] Hattie Newsome ALT [Catalytic activity/Vol] 122 U/L Critically high 16-63 [facility] Comment on above: Performed By: #### U BLANCA, CMP, MG #### [facility] [address] [address] [address] Hattie Newsome Anion gap [Moles/Vol] 12.4 mmol/L Normal [facility] Comment on above: Performed By: #### U BLANCA, CMP, MG #### [facility] [address] [address] [address] Hattie Newsome AST [Catalytic activity/Vol] 72 U/L Critically high 15-37 [facility] Comment on above: Performed By: #### U BLANCA, CMP, MG #### [facility] [address] [place] [address] Dr. Hattie Newsome Bilirubin [Mass/Vol] 0.5 mg/dL Normal 0.2-1.0 [facility] Comment on above: Performed By: #### U BLANCA, CMP, MG #### [facility] [address] [address] [address] Hattie Newsome Calcium [Mass/Vol] 9.1 mg/dL Normal 8.5-10.1 [facility] Comment on above: Performed By: #### U BLANCA, CMP, MG #### [facility] [address] [place] [address] Dr. Hattie Newsome Chloride [Moles/Vol] 106 mmol/L Normal 98-107 [facility] Comment on above: Performed By: #### U BLANCA, CMP, MG #### [facility] [address] [place] [address] Dr. Hattie Newsome CO2 [Moles/Vol] 25.9 mmol/L Normal 21.0-32.0 [facility] Comment on above: Performed By: #### U BLANCA, CMP, MG #### [facility] [address] [place] [address] Dr. Hattie Newsome Creatinine [Mass/Vol] 1.54 mg/dL Critically high 0.70-1.30 [facility] Comment on above: Performed By: #### U BLANCA, CMP, MG #### [facility] [address] [place] [address] Dr. Hattie Newsome EGFR-AF [place] 55 mL/min/1.73m2 Critically low >=60 [facility] Comment on above: Performed By: #### U BLANCA, CMP, MG #### [facility] [address] [place] [address] Dr. Hattie Newsome EGFR-NON AF [place] 45 mL/min/1.73m2 Critically low >=60 [facility] Comment on above: Performed By: #### U BLANCA, CMP, MG #### [facility] [address] [address] [address] Hattie Newsome Globulin (S) [Mass/Vol] 4.0 g/dL Normal [facility] Comment on above: Performed By: #### U BLANCA, CMP, MG #### [facility] [address] [address] [address] Hattie Newsome Glucose [Mass/Vol] 104 mg/dL Normal 74-106 [facility] Comment on above: Performed By: #### U BLANCA, CMP, MG #### [facility] [address] [address] [address] Hattie Newsome Potassium [Moles/Vol] 4.3 mmol/L Normal 3.5-5.1 [facility] Comment on above: Performed By: #### U BLANCA, CMP, MG #### [facility] [address] [address] [address] Hattie Newsome Protein [Mass/Vol] 7.9 g/dL Normal 6.4-8.2 [facility] Comment on above: Performed By: #### U BLANCA, CMP, MG #### [facility] [address] [address] [address] Hattie Newsome Sodium [Moles/Vol] 140 mmol/L Normal 136-145 [facility] Comment on above: Performed By: #### U BLANCA, CMP, MG #### [facility] [address] [address] [address] Hattie Newsome Urea nitrogen [Mass/Vol] 14.0 mg/dL Normal 7.0-18.0 [facility] Comment on above: Performed By: #### U BLANCA, CMP, MG #### [facility] [address] [address] [address] Hattie Newsome Urea nitrogen/Creatinine [Mass ratio] 9.1 mg/mg Normal [facility] Comment on above: Performed By: #### U BLANCA, CMP, MG #### [facility] [address] [place] [address] Dr. Hattie Newsome UA RANDOMon 07-07-2022 Bilirubin Ql (U) Negative Normal NEGATIVE [facility] Comment on above: Performed By: #### U A #### [facility] [address] [place] [address] Dr. Hattie Newsome Clarity (U) CLEAR Normal CLEAR [facility] Comment on above: Performed By: #### U A #### [facility] [address] [place] [address] Dr. Hattie Newsome Color (U) YELLOW Normal YELLOW [facility] Comment on above: Performed By: #### U A #### [facility] [address] [place] [address] Dr. Hattie Newsome Glucose Ql (U) Negative Normal NEGATIVE [facility] Comment on above: Performed By: #### U A #### [facility] [address] [place] [address] Dr. Hattie Newsome Hemoglobin Ql (U) Negative Normal NEGATIVE [facility] Comment on above: Performed By: #### U A #### [facility] [address] [place] [address] Dr. Hattie Newsome Ketones Ql (U) Negative Normal NEGATIVE [facility] Comment on above: Performed By: #### U A #### [facility] [address] [place] [address] Dr. Hattie Newsome LEUKOCYTES Negative Normal NEGATIVE [facility] Comment on above: Performed By: #### U A #### [facility] [address] [place] [address] Dr. Hattie Newsome Nitrite Ql (U) Negative Normal NEGATIVE [facility] Comment on above: Performed By: #### U A #### [facility] [address] [place] [address] Dr. Hattie Newsome pH (U) 5.5 [pH] Normal 5-9 [facility] Comment on above: Performed By: #### U A #### [facility] [address] [place] [address] Dr. Hattie Newsome SPEC GRAVITY >=1.030 Abnormal 1.005-<=1.025 [facility] Comment on above: Performed By: #### U A #### [facility] [address] [place] [address] Dr. Hattie Newsome UA PROTEIN Negative Normal NEGATIVE/ TRACE [facility] Comment on above: Performed By: #### U A #### [facility] [address] [place] [address] Dr. Hattie Newsome Urobilinogen Qn (U) 1.0 {Xavier'U}/dL Normal 0.2 - 1. 0 [facility] Comment on above: Performed By: #### U A #### [facility] [address] [place] [address] Dr. Hattie Newsome URIC ACID SERUMon 07-07-2022 Urate [Mass/Vol] 6.8 mg/dL Normal 3.5-7.2 [facility] Comment on above: Performed By: #### U BLANCA, CMP, MG #### [facility] [address] [place] [address] Dr. Hattie Newsome URINE T PROTEIN CREAT RATIOo n 07-07-2022 Protein (U) [Mass/Vol] 27.5 mg/dL Critically high <=12.0 [facility] Comment on above: Performed By: #### U RTPCR #### [facility] [address] [place] [address] Dr. Hattie Newsome UR PROT CREAT RAT 0.15 Normal [facility] Comment on above: Performed By: #### U RTPCR #### [facility] [address] [place] [address] Dr. Hattie Newsome URINE CREAT 187.29 mg/dL Normal 20.00-300.00 [facility] Comment on above: Performed By: #### U RTPCR #### [facility] [address] [place] [address] Dr. Hattie Newsome VITAMIN D 25 OHon 07-07-2022 VIT D 25-OH 81.5 ng/mL Normal [facility] Comment on above: Performed By: #### V ITAD #### [facility] [address] [address] [address] Hattie Newsome VIT D RANGES SEE BELOW Normal [facility] Comment on above: Result Comment: <20 ng/mL Vit D deficient 20 - <30 ng/mL Vit D insufficient 30 - 100 ng/mL Vit D sufficient >100 ng/mL Potential Toxicity Performed By: #### V ITAD #### [facility] [address] [address] [address] Hattie Newsome ECHOCARDIO M/2D COMPLETEon 0 02-21-2022 ECHOCARDIO M/2D COMPLETE Patient: KEL CASTILLO Exam Date: 02/21/2022 : 1955 Gender:M Ordering : DR SARAH TOLLIVER M.D. Admission #: [id number] Family : Order #: [id number] CLICK HERE TO VIEW EXAM ECHOCARDIOGRAM REPORT [...] Yepez M.D. on 02/21/2022 at 16:31 Normal [facility] No Panel Informationon 02-08 [facility] BASIC METABOLIC PANELon 02- Calcium [Mass/Vol] 9.2 mg/dL Normal 8.6-10.3 [facility] Comment on above: Order Comment: No: D o not add to previous draw Performed By: #### 0 0071, [id number] #### [facility] [address] [place] [address], [place] Chloride [Moles/Vol] 108 mmol/L High 98-107 [facility] Comment on above: Order Comment: No: D o not add to previous draw Performed By: #### 0 0071, 17384 #### [facility] [address] [place] [address], [place] CO2 [Moles/Vol] 26 mmol/L Normal 21-31 [facility] Comment on above: Order Comment: No: D o not add to previous draw Performed By: #### 0 0071, 10681 #### [facility] [address] [place] [address], [place] Creatinine [Mass/Vol] 1.64 mg/dL High 0.70-1.30 [facility] Comment on above: Order Comment: No: D o not add to previous draw Performed By: #### 0 0071, [id number] #### [facility] [address] [place] [address], [place] GFR/1.73 sq M predicted among blacks MDRD (S/P/Bld) [Vol rate/Area] 51 ml/min/1.73sq m Abnormal >60 [facility] Comment on above: Order Comment: No: D o not add to previous draw Performed By: #### 0 0071, 03353 #### [facility] [address] [place] [address], [facility] GFR/1.73 sq M predicted among non-blacks MDRD (S/P/Bld) [Vol rate/Area] 42 ml/min/1.73sq m Abnormal >60 [facility] Comment on above: Order Comment: No: D o not add to previous draw Performed By: #### 0 0071, 28898 #### [facility] [address] [place] [id number], [facility] Glucose [Mass/Vol] 100 mg/dL Normal 70-100 [facility] Comment on above: Order Comment: No: D o not add to previous draw Performed By: #### 0 0071, 13034 #### [facility] [address] [place] [id number], [facility] Potassium [Moles/Vol] 4.5 mmol/L Normal 3.5-5.1 [facility] Comment on above: Order Comment: No: D o not add to previous draw Performed By: #### 0 0071, 56641 #### [facility] [address] [place] [address], [facility] Sodium [Moles/Vol] 139 mmol/L Normal 136-145 [facility] Comment on above: Order Comment: No: D o not add to previous draw Performed By: #### 0 0071, 07032 #### [facility] [address] [facility] [place] [address], [facility] Urea nitrogen [Mass/Vol] 15 mg/dL Normal 7-25 [facility] Comment on above: Order Comment: No: D o not add to previous draw Performed By: #### 0 0071, 41323 #### [facility] [address] [place] [id number], [facility] CBC W/DIFFon 10-08-2019 ABS BASOPHILS 0.1 10*3/uL Normal 0.0-0.2 [facility] Comment on above: Order Comment: No: D o not add to previous draw Performed By: #### 0 0071, 90435 #### [facility] [address] [place] [address], [facility] ABS IMM GRANS 0.1 10*3/uL Normal 0.0-0.2 [facility] Comment on above: Order Comment: No: D o not add to previous draw Performed By: #### 0 0071, 81191 #### [facility] [address] [facility] [place] [address], [facility] ABS NEUTROPHILS 5.1 10*3/uL Normal 1.6-7.6 [facility] Comment on above: Order Comment: No: D o not add to previous draw Performed By: #### 0 0071, 14887 #### [facility] [address] [facility] [place] [address], [facility] Basophils/100 WBC (Bld) 0.8 % Normal 0.0-1.0 [facility] Comment on above: Order Comment: No: D o not add to previous draw Performed By: #### 0 0071, 88943 #### [facility] [address] [facility] [place] [address], [facility] Eosinophils (Bld) [#/Vol] 0.3 10*3/uL Normal 0.0-0.5 [facility] Comment on above: Order Comment: No: D o not add to previous draw Performed By: #### 0 0071, 42979 #### [facility] [address] [place] [place] [address], [facility] Eosinophils/100 WBC (Bld) 3.9 % Normal 0.0-6.0 [facility] Comment on above: Order Comment: No: D o not add to previous draw Performed By: #### 0 0071, 51019 #### [facility] [address] [facility] [place] [address], [facility] Erythrocyte distribution width (RBC) [Ratio] 14.3 % Normal 11.5-15.0 [facility] Comment on above: Order Comment: No: D o not add to previous draw Performed By: #### 0 0071, 77954 #### [facility] [address] [place] [address], [facility] Hematocrit (Bld) [Volume fraction] 39.0 % Normal 39.0-50.0 [facility] Comment on above: Order Comment: No: D o not add to previous draw Performed By: #### 0 0071, 27029 #### [facility] [address] [place] [address], [facility] Hemoglobin (Bld) [Mass/Vol] 12.3 g/dL Low 13.0-17.0 [facility] Comment on above: Order Comment: No: D o not add to previous draw Performed By: #### 0 0071, 93179 #### [facility] [address] [place] [address], [facility] IMMATURE GRANS 0.8 % Normal 0.0-1.0 [facility] Comment on above: Order Comment: No: D o not add to previous draw Performed By: #### 0 0071, 30944 #### [facility] [address] [place] [address], [facility] Lymphocytes (Bld) [#/Vol] 1.2 10*3/uL Normal 1.2-4.0 [facility] Comment on above: Order Comment: No: D o not add to previous draw Performed By: #### 0 0071, 24434 #### [facility] [address] [place] [address], [facility] Lymphocytes/100 WBC (Bld) 16.1 % Low 20.0-45.0 [facility] Comment on above: Order Comment: No: D o not add to previous draw Performed By: #### 0 0071, 71289 #### [facility] [address] [place] [address], [facility] MCH (RBC) [Entitic mass] 29.9 pg Normal 27.0-33.0 [facility] Comment on above: Order Comment: No: D o not add to previous draw Performed By: #### 0 0071, 59977 #### [facility] [address] [place] [address], [facility] MCHC (RBC) [Mass/Vol] 31.5 g/dL Low 32.0-35.0 [facility] Comment on above: Order Comment: No: D o not add to previous draw Performed By: #### 0 0071, 88856 #### [facility] [address] [facility] [place] [address], [facility] MCV (RBC) [Entitic vol] 94.9 fL Normal 82.0-98.0 [facility] Comment on above: Order Comment: No: D o not add to previous draw Performed By: #### 0 0071, 70963 #### [facility] [address] [place] [place] [address], [facility] Monocytes (Bld) [#/Vol] 0.5 10*3/uL Normal 0.1-1.0 [facility] Comment on above: Order Comment: No: D o not add to previous draw Performed By: #### 0 0071, 15867 #### [facility] [address] [place] [address], [facility] MONOS 6.3 % Normal 5.0-12.0 [facility] Comment on above: Order Comment: No: D o not add to previous draw Performed By: #### 0 0071, 29296 #### [facility] [address] [place] [place] [address], [facility] Neutrophils/100 WBC (Bld) 72.1 % High 40.0-72.0 [facility] Comment on above: Order Comment: No: D o not add to previous draw Performed By: #### 0 0071, 34557 #### [facility] [address] [place] [address], [facility] Nucleated RBC/100 WBC (Bld) [Ratio] 0 % Normal 0-0 [facility] Comment on above: Order Comment: No: D o not add to previous draw Performed By: #### 0 0071, 31844 #### [facility] [address] [facility] [place] [address], [facility] PLAT CNT 168 10*3/uL Normal 150-400 [facility] Comment on above: Order Comment: No: D o not add to previous draw Performed By: #### 0 0071, 67730 #### [facility] [address] [place] [address], [facility] RBC (Bld) [#/Vol] 4.11 10*6/uL Low 4.20-5.70 [facility] Comment on above: Order Comment: No: D o not add to previous draw Performed By: #### 0 0071, 65263 #### [facility] [address] [place] [address], [facility] WBC (Bld) [#/Vol] 7.13 10*3/uL Normal 4.00-10.60 [facility] Comment on above: Order Comment: No: D o not add to previous draw Performed By: #### 0 0071, 90703 #### [facility] Marylou [address] US ABDOMEN LIMITED 020 US ABDOMEN LIMITED [facility] Department of Radiology [address] [place] [id number] ======== Patient Name: KEL CASTILLO : 1955 Sex: M Age: Race: White Pt. Location: [address] [place] [address] Patient Status: I Ordered Date: 10/08/2019 9:30:00 [...] localized pocket of fluid collection. Electronically signed: Bradny Wilson. Transcribed by: [email or web address], User Resident: BRANDY WILSON Electronically Signed by: BRANDY WILSON @ 10/08/2019 10:13 AM I personally read this/these film(s) with this resident Normal [facility] Comment on above: Order Comment: No: D o not add to previous draw BASIC METABOLIC PANELon 09-13 Calcium [Mass/Vol] 8.7 mg/dL Normal 8.6-10.3 [facility] Comment on above: Order Comment: No: D o not add to previous draw Performed By: #### 0 0071, 59205 #### [facility] [address] [place] [address], [facility] Chloride [Moles/Vol] 111 mmol/L High 98-107 [facility] Comment on above: Order Comment: No: D o not add to previous draw Performed By: #### 0 0071, 13476 #### [facility] [address] [place] [address], [place] CO2 [Moles/Vol] 28 mmol/L Normal 21-31 [facility] Comment on above: Order Comment: No: D o not add to previous draw Performed By: #### 0 0071, 42055 #### [facility] [address] [place] [address], [place] Creatinine [Mass/Vol] 1.59 mg/dL High 0.70-1.30 [facility] Comment on above: Order Comment: No: D o not add to previous draw Performed By: #### 0 0071, 64750 #### [facility] [address] [place] [address], [place] GFR/1.73 sq M predicted among blacks MDRD (S/P/Bld) [Vol rate/Area] 53 ml/min/1.73sq m Abnormal >60 [facility] Comment on above: Order Comment: No: D o not add to previous draw Performed By: #### 0 0071, 91024 #### [facility] [address] [place] [address], [place] GFR/1.73 sq M predicted among non-blacks MDRD (S/P/Bld) [Vol rate/Area] 44 ml/min/1.73sq m Abnormal >60 [facility] Comment on above: Order Comment: No: D o not add to previous draw Performed By: #### 0 0071, 37116 #### [facility] [address] [place] [address], [place] Glucose [Mass/Vol] 99 mg/dL Normal 70-100 [facility] Comment on above: Order Comment: No: D o not add to previous draw Performed By: #### 0 0071, 97174 #### [facility] [address] [place] [address], [place] Potassium [Moles/Vol] 4.2 mmol/L Normal 3.5-5.1 [facility] Comment on above: Order Comment: No: D o not add to previous draw Performed By: #### 0 0071, 79340 #### [facility] [address] Sodium [Moles/Vol] 142 mmol/L Normal 136-145 [facility] Comment on above: Order Comment: No: D o not add to previous draw Performed By: #### 0 0071, 52366 #### [facility] [address] Urea nitrogen [Mass/Vol] 16 mg/dL Normal 7-25 [facility] Comment on above: Order Comment: No: D o not add to previous draw Performed By: #### 0 0071, 21849 #### [facility] [address] Cardiovascular Lab Reporton 10-07-2019 Cardiovascular Lab Report [facility] MR #: [id number] Department of Physician: Shaji Juarez M.D. Division of Service Date: 10/07/2019 Cardiology Birthdate: 1955 Adult Cardiovascular Room #: [id number] [facility] [address] [address] Cardiovascular Laboratory Report FINAL IMPRESSIONS: 1. Severe 3-vessel wales coronary artery disease. 2. A 2/3 bypass [...] on the anatomic and fluoroscopic landmarks. A 6-Malay 11 cm sheath was inserted. Limited femoral [...] stress test, preoperative evaluation. Electronically Signed by: Sraah Tolliver M.D. 10/14/2019 05:30 P Sarah Tolliver M.D. Date Dict: 10/07/2019/09:10 Man/Sarah Tolliver M.D. Date Trans: 10/07/2019 02:55 P/mmo [id number] cc: Priyank Hendrickson M.D. [address] [place] [address] Nayana Bledsoe D[address] [place] [address] Normal [facility] MAGNESIUM BLOODon 10-07-2019 Magnesium [Mass/Vol] 2.1 mg/dL Normal 1.9-2.7 [facility] Comment on above: Order Comment: No: D o not add to previous draw Performed By: #### 0 0071, 68281 #### [facility] [address] [place] [address], [facility] BASIC METABOLIC PANELon 09-13 Calcium [Mass/Vol] 8.7 mg/dL Normal 8.6-10.3 [facility] Comment on above: Order Comment: No: D o not add to previous draw Performed By: #### 0 0071, 48632 #### [facility] [address] [place] [address], [place] Chloride [Moles/Vol] 110 mmol/L High 98-107 [facility] Comment on above: Order Comment: No: D o not add to previous draw Performed By: #### 0 0071, 96158 #### [facility] [address] [place] [address], [place] CO2 [Moles/Vol] 26 mmol/L Normal 21-31 [facility] Comment on above: Order Comment: No: D o not add to previous draw Performed By: #### 0 0071, 49480 #### [facility] [address] [place] [address], [place] Creatinine [Mass/Vol] 1.92 mg/dL High 0.70-1.30 [facility] Comment on above: Order Comment: No: D o not add to previous draw Performed By: #### 0 0071, 60165 #### [facility] [address] [place] [address], [place] GFR/1.73 sq M predicted among blacks MDRD (S/P/Bld) [Vol rate/Area] 43 ml/min/1.73sq m Abnormal >60 [facility] Comment on above: Order Comment: No: D o not add to previous draw Performed By: #### 0 0071, 75746 #### [facility] [address] [place] [address], [place] GFR/1.73 sq M predicted among non-blacks MDRD (S/P/Bld) [Vol rate/Area] 35 ml/min/1.73sq m Abnormal >60 [facility] Comment on above: Order Comment: No: D o not add to previous draw Performed By: #### 0 0071, 56343 #### [facility] [address] [place] [address], [place] Glucose [Mass/Vol] 96 mg/dL Normal 70-100 [facility] Comment on above: Order Comment: No: D o not add to previous draw Performed By: #### 0 0071, 41006 #### [facility] [address] [place] [address], [place] Potassium [Moles/Vol] 4.4 mmol/L Normal 3.5-5.1 [facility] Comment on above: Order Comment: No: D o not add to previous draw Performed By: #### 0 0071, 15642 #### [facility] [address] [place] [address], [place] Sodium [Moles/Vol] 140 mmol/L Normal 136-145 [facility] Comment on above: Order Comment: No: D o not add to previous draw Performed By: #### 0 0071, 05769 #### [facility] [address] [place] [address], [place] Urea nitrogen [Mass/Vol] 25 mg/dL Normal 7-25 [facility] Comment on above: Order Comment: No: D o not add to previous draw Performed By: #### 0 0071, 38648 #### [facility] [address] [place] [address], [place] Calcium [Mass/Vol] 8.8 mg/dL Normal 8.6-10.3 [facility] Comment on above: Order Comment: No: D o not add to previous draw Performed By: #### 0 0071 #### [facility] [address] [place] [address], [place] Chloride [Moles/Vol] 111 mmol/L High 98-107 [facility] Comment on above: Order Comment: No: D o not add to previous draw Performed By: #### 0 0071 #### [facility] [address] [place] [address], [place] CO2 [Moles/Vol] 25 mmol/L Normal 21-31 [facility] Comment on above: Order Comment: No: D o not add to previous draw Performed By: #### 0 0071 #### [facility] [address] [place] [address], [place] Creatinine [Mass/Vol] 1.94 mg/dL High 0.70-1.30 [facility] Comment on above: Order Comment: No: D o not add to previous draw Performed By: #### 0 0071 #### [facility] [address] [place] [address], [place] GFR/1.73 sq M predicted among blacks MDRD (S/P/Bld) [Vol rate/Area] 42 ml/min/1.73sq m Abnormal >60 [facility] Comment on above: Order Comment: No: D o not add to previous draw Performed By: #### 0 0071 #### [facility] [address] [place] [address], [place] GFR/1.73 sq M predicted among non-blacks MDRD (S/P/Bld) [Vol rate/Area] 35 ml/min/1.73sq m Abnormal >60 [facility] Comment on above: Order Comment: No: D o not add to previous draw Performed By: #### 0 0071 #### [facility] [address] [place] [address], [place] Glucose [Mass/Vol] 102 mg/dL High 70-100 [facility] Comment on above: Order Comment: No: D o not add to previous draw Performed By: #### 0 0071 #### [facility] [address] [place] [address], [place] Potassium [Moles/Vol] 4.5 mmol/L Normal 3.5-5.1 [facility] Comment on above: Order Comment: No: D o not add to previous draw Performed By: #### 0 0071 #### [facility] [address] [place] [address], [place] Sodium [Moles/Vol] 140 mmol/L Normal 136-145 [facility] Comment on above: Order Comment: No: D o not add to previous draw Performed By: #### 0 0071 #### [facility] [address] [place] [address], [facility] Urea nitrogen [Mass/Vol] 27 mg/dL High 7-25 [facility] Comment on above: Order Comment: No: D o not add to previous draw Performed By: #### 0 0071 #### [facility] [address] [facility] [place] [address], [facility] CBC W/DIFFon 10-06-2019 ABS BASOPHILS 0.1 10*3/uL Normal 0.0-0.2 [facility] Comment on above: Order Comment: No: D o not add to previous draw Performed By: #### 5 0103 #### [facility] [address] [facility] [place] [address], [facility] ABS IMM GRANS 0.1 10*3/uL Normal 0.0-0.2 [facility] Comment on above: Order Comment: No: D o not add to previous draw Performed By: #### 5 3 #### [facility] [address] [facility] [place] [address], [facility] ABS NEUTROPHILS 4.2 10*3/uL Normal 1.6-7.6 [facility] Comment on above: Order Comment: No: D o not add to previous draw Performed By: #### 5 3 #### [facility] [address] [facility] [place] [address], [facility] Basophils/100 WBC (Bld) 0.9 % Normal 0.0-1.0 [facility] Comment on above: Order Comment: No: D o not add to previous draw Performed By: #### 5 3 #### [facility] [address] [place] [address], [facility] Eosinophils (Bld) [#/Vol] 0.3 10*3/uL Normal 0.0-0.5 [facility] Comment on above: Order Comment: No: D o not add to previous draw Performed By: #### 5 0103 #### [facility] [address] [place] [address], [facility] Eosinophils/100 WBC (Bld) 4.8 % Normal 0.0-6.0 [facility] Comment on above: Order Comment: No: D o not add to previous draw Performed By: #### 5 0103 #### [facility] [address] Erythrocyte distribution width (RBC) [Ratio] 14.3 % Normal 11.5-15.0 [facility] Comment on above: Order Comment: No: D o not add to previous draw Performed By: #### 5 0103 #### [facility] [address] [place] [address], [facility] Hematocrit (Bld) [Volume fraction] 37.3 % Low 39.0-50.0 [facility] Comment on above: Order Comment: No: D o not add to previous draw Performed By: #### 5 0103 #### [facility] [address] [facility] [place] [address], [facility] Hemoglobin (Bld) [Mass/Vol] 11.7 g/dL Low 13.0-17.0 [facility] Comment on above: Order Comment: No: D o not add to previous draw Performed By: #### 5 0103 #### [facility] [address] [facility] [address], [facility] IMMATURE GRANS 1.3 % High 0.0-1.0 [facility] Comment on above: Order Comment: No: D o not add to previous draw Performed By: #### 5 0103 #### [facility] [address] [place] [id number], [facility] Lymphocytes (Bld) [#/Vol] 1.5 10*3/uL Normal 1.2-4.0 [facility] Comment on above: Order Comment: No: D o not add to previous draw Performed By: #### 5 0103 #### [facility] [address] [place] [address], [facility] Lymphocytes/100 WBC (Bld) 21.8 % Normal 20.0-45.0 [facility] Comment on above: Order Comment: No: D o not add to previous draw Performed By: #### 5 0103 #### [facility] [address] [place] [address], [facility] MCH (RBC) [Entitic mass] 29.5 pg Normal 27.0-33.0 [facility] Comment on above: Order Comment: No: D o not add to previous draw Performed By: #### 5 0103 #### [facility] [address] [place] [address], [facility] MCHC (RBC) [Mass/Vol] 31.4 g/dL Low 32.0-35.0 [facility] Comment on above: Order Comment: No: D o not add to previous draw Performed By: #### 5 0103 #### [facility] [address] [place] [address], [facility] MCV (RBC) [Entitic vol] 94.0 fL Normal 82.0-98.0 [facility] Comment on above: Order Comment: No: D o not add to previous draw Performed By: #### 5 0103 #### [facility] [address] [place] [address], [facility] Monocytes (Bld) [#/Vol] 0.6 10*3/uL Normal 0.1-1.0 [facility] Comment on above: Order Comment: No: D o not add to previous draw Performed By: #### 5 0103 #### [facility] [address] [place] [id number], [facility] MONOS 8.2 % Normal 5.0-12.0 [facility] Comment on above: Order Comment: No: D o not add to previous draw Performed By: #### 5 0103 #### [facility] [address] [place] [id number], [facility] Neutrophils/100 WBC (Bld) 63.0 % Normal 40.0-72.0 [facility] Comment on above: Order Comment: No: D o not add to previous draw Performed By: #### 5 0103 #### [facility] [address] [place] [id number], [facility] Nucleated RBC/100 WBC (Bld) [Ratio] 0 % Normal 0-0 [facility] Comment on above: Order Comment: No: D o not add to previous draw Performed By: #### 5 0103 #### [facility] [address] [place] [id number], [facility] PLAT CNT 162 10*3/uL Normal 150-400 [facility] Comment on above: Order Comment: No: D o not add to previous draw Performed By: #### 5 0103 #### [facility] [address] [facility] [place] [address], [facility] RBC (Bld) [#/Vol] 3.97 10*6/uL Low 4.20-5.70 [facility] Comment on above: Order Comment: No: D o not add to previous draw Performed By: #### 5 0103 #### [facility] [address] [place] [id number], [facility] WBC (Bld) [#/Vol] 6.69 10*3/uL Normal 4.00-10.60 [facility] Comment on above: Order Comment: No: D o not add to previous draw Performed By: #### 5 0103 #### [facility] [address] [place] [id number], [facility] BASIC METABOLIC PANELon - Calcium [Mass/Vol] 9.7 mg/dL Normal 8.6-10.3 [facility] Comment on above: Order Comment: No: D o not add to previous draw Performed By: #### 0 0071, [id number] #### [facility] [address] [place] [address], [place] Chloride [Moles/Vol] 105 mmol/L Normal 98-107 [facility] Comment on above: Order Comment: No: D o not add to previous draw Performed By: #### 0 0071, 93444 #### [facility] [address] [place] [address], [place] CO2 [Moles/Vol] 25 mmol/L Normal 21-31 [facility] Comment on above: Order Comment: No: D o not add to previous draw Performed By: #### 0 0071, [id number] #### [facility] [address] [place] [address], [place] Creatinine [Mass/Vol] 2.13 mg/dL High 0.70-1.30 [facility] Comment on above: Order Comment: No: D o not add to previous draw Performed By: #### 0 0071, 83532 #### [facility] [address] [place] [address], [place] GFR/1.73 sq M predicted among blacks MDRD (S/P/Bld) [Vol rate/Area] 38 ml/min/1.73sq m Abnormal >60 [facility] Comment on above: Order Comment: No: D o not add to previous draw Performed By: #### 0 0071, 54930 #### [facility] [address] [place] [address], [place] GFR/1.73 sq M predicted among non-blacks MDRD (S/P/Bld) [Vol rate/Area] 31 ml/min/1.73sq m Abnormal >60 [facility] Comment on above: Order Comment: No: D o not add to previous draw Performed By: #### 0 0071, 83571 #### [facility] [address] Glucose [Mass/Vol] 114 mg/dL High 70-100 [facility] Comment on above: Order Comment: No: D o not add to previous draw Performed By: #### 0 0071, 76497 #### [facility] [address] [facility] [place] [address], [facility] Potassium [Moles/Vol] 4.7 mmol/L Normal 3.5-5.1 [facility] Comment on above: Order Comment: No: D o not add to previous draw Performed By: #### 0 0071, 02479 #### [facility] [address] Sodium [Moles/Vol] 140 mmol/L Normal 136-145 [facility] Comment on above: Order Comment: No: D o not add to previous draw Performed By: #### 0 0071, 99574 #### [facility] [address] Urea nitrogen [Mass/Vol] 32 mg/dL High 7-25 [facility] Comment on above: Order Comment: No: D o not add to previous draw Performed By: #### 0 0071, 22835 #### [facility] [address] CBC W/DIFFon 10-05-2019 ABS BASOPHILS 0.1 10*3/uL Normal 0.0-0.2 [facility] Comment on above: Performed By: #### 5 0103 #### [facility] [address] ABS IMM GRANS 0.1 10*3/uL Normal 0.0-0.2 [facility] Comment on above: Performed By: #### 5 0103 #### [facility] [address] ABS NEUTROPHILS 6.2 10*3/uL Normal 1.6-7.6 [facility] Comment on above: Performed By: #### 5 0103 #### [facility] [address] [place] [address], [facility] Basophils/100 WBC (Bld) 0.7 % Normal 0.0-1.0 [facility] Comment on above: Performed By: #### 5 0103 #### [facility] [address] [place] [address], [facility] Eosinophils (Bld) [#/Vol] 0.3 10*3/uL Normal 0.0-0.5 [facility] Comment on above: Performed By: #### 5 0103 #### [facility] [address] [place] [address], [facility] Eosinophils/100 WBC (Bld) 4.0 % Normal 0.0-6.0 [facility] Comment on above: Performed By: #### 5 0103 #### [facility] [address] Erythrocyte distribution width (RBC) [Ratio] 14.4 % Normal 11.5-15.0 [facility] Comment on above: Performed By: #### 5 3 #### [facility] [address] [place] [address], [facility] Hematocrit (Bld) [Volume fraction] 39.3 % Normal 39.0-50.0 [facility] Comment on above: Performed By: #### 5 0103 #### [facility] [address] [place] [address], [facility] Hemoglobin (Bld) [Mass/Vol] 12.7 g/dL Low 13.0-17.0 [facility] Comment on above: Performed By: #### 5 3 #### [facility] [address] [place] [address], [facility] IMMATURE GRANS 0.8 % Normal 0.0-1.0 [facility] Comment on above: Performed By: #### 5 3 #### [facility] [address] [facility] [place] [address], [facility] Lymphocytes (Bld) [#/Vol] 1.4 10*3/uL Normal 1.2-4.0 [facility] Comment on above: Performed By: #### 3 #### [facility] [address] [facility] [place] [address], [facility] Lymphocytes/100 WBC (Bld) 16.6 % Low 20.0-45.0 [facility] Comment on above: Performed By: #### 3 #### [facility] [address] [facility] [place] [address], [facility] MCH (RBC) [Entitic mass] 30.3 pg Normal 27.0-33.0 [facility] Comment on above: Performed By: #### 102 #### [facility] [address] [facility] MCHC (RBC) [Mass/Vol] 32.3 g/dL Normal 32.0-35.0 [facility] Comment on above: Performed By: #### 102 #### [facility] [address] [facility] [place] [address], [facility] MCV (RBC) [Entitic vol] 93.8 fL Normal 82.0-98.0 [facility] Comment on above: Performed By: #### 3 #### [facility] [address] [facility] [place] [place] [address], [facility] Monocytes (Bld) [#/Vol] 0.4 10*3/uL Normal 0.1-1.0 [facility] Comment on above: Performed By: #### 3 #### [facility] [address] [facility] [place] [address], [facility] MONOS 4.9 % Low 5.0-12.0 [facility] Comment on above: Performed By: #### 102 #### [facility] [address] [place] [address], [facility] Neutrophils/100 WBC (Bld) 73.0 % High 40.0-72.0 [facility] Comment on above: Performed By: #### 5 0103 #### [facility] [address] [place] [address], [facility] Nucleated RBC/100 WBC (Bld) [Ratio] 0 % Normal 0-0 [facility] Comment on above: Performed By: #### 5 0103 #### [facility] [address] [facility] [place] [address], [facility] PLAT CNT 205 10*3/uL Normal 150-400 [facility] Comment on above: Performed By: #### 5 0103 #### [facility] [address] [facility] [address], [facility] RBC (Bld) [#/Vol] 4.19 10*6/uL Low 4.20-5.70 [facility] Comment on above: Performed By: #### 5 0103 #### [facility] [address] [facility] [address], [facility] WBC (Bld) [#/Vol] 8.53 10*3/uL Normal 4.00-10.60 [facility] Comment on above: Performed By: #### 5 0103 #### [facility] [address] [facility] [place] [address], [facility] CREATININE URINE RANDOMon Creatinine [Mass/Vol] 62.0 mg/dL Normal [facility] Comment on above: Order Comment: No: D o not add to previous draw Result Comment: Ther e are no established reference values for random urine specimens Performed By: #### 2 5706, 64026, 15940 #### [facility] [address] [facility] [place] [address], [facility] LIVER BATTERYon 10-05-2019 Albumin [Mass/Vol] 4.6 g/dL Normal 3.5-5.7 [facility] Comment on above: Order Comment: Yes: Add to Previous draw if able Performed By: #### 0 0071, 03363 #### [facility] [address] [place] [address], [facility] ALKALINE PHOSPH 56 IU/L Normal 34-104 [facility] Comment on above: Order Comment: Yes: Add to Previous draw if able Performed By: #### 0 0071, 60998 #### [facility] [address] [place] [address], [place] ALT [Catalytic activity/Vol] 26 U/L Normal 7-52 [facility] Comment on above: Order Comment: Yes: Add to Previous draw if able Performed By: #### 0 0071, 20485 #### [facility] [address] [place] [address], [place] AST [Catalytic activity/Vol] 25 U/L Normal 13-39 [facility] Comment on above: Order Comment: Yes: Add to Previous draw if able Performed By: #### 0 0071, 23756 #### [facility] [address] [place] [address], [place] Bilirubin [Mass/Vol] 0.5 mg/dL Normal 0.3-1.0 [facility] Comment on above: Order Comment: Yes: Add to Previous draw if able Performed By: #### 0 0071, 20657 #### [facility] [address] [place] [address], [place] Bilirubin.direct [Mass/Vol] 0.1 mg/dL Normal 0.0-0.2 [facility] Comment on above: Order Comment: Yes: Add to Previous draw if able Performed By: #### 0 0071, 61832 #### [facility] [address] [place] [address], [place] Protein [Mass/Vol] 7.6 g/dL Normal 6.0-8.3 [facility] Comment on above: Order Comment: Yes: Add to Previous draw if able Performed By: #### 0 0071, 27568 #### [facility] [address] [place] [address], [place] SODIUM URINE RANDOMon 2019 Sodium (U) [Moles/Vol] 111 mmol/L Normal [facility] Comment on above: Order Comment: No: D o not add to previous draw Result Comment: Ther e are no established reference values for random urine specimens Performed By: #### 2 5706, 91857, 58433 #### [facility] [address] [place] [address], [place] UA,MICROSCOPIC REQUIREDon Appearance (U) CLEAR Normal CLEAR [facility] Comment on above: Order Comment: No: D o not add to previous draw Performed By: #### 9 0150 #### [facility] [address] [place] [address], [place] Bilirubin [Mass/Vol] Negative Normal NEGATIVE [facility] Comment on above: Order Comment: No: D o not add to previous draw Performed By: #### 9 0150 #### [facility] [address] [place] [address], [place] BLOOD Negative Normal NEGATIVE [facility] Comment on above: Order Comment: No: D o not add to previous draw Performed By: #### 9 0150 #### [facility] [address] [place] [address], [place] Color (U) YELLOW Normal YELLOW [facility] Comment on above: Order Comment: No: D o not add to previous draw Performed By: #### 9 0150 #### [facility] [address] [place] [address], [place] EPIS OCC Normal FEW,OCC,NONE SEEN [facility] Comment on above: Order Comment: No: D o not add to previous draw Performed By: #### 9 0150 #### [facility] [address] [place] [address], [place] Glucose [Mass/Vol] Negative Normal NEGATIVE [facility] Comment on above: Order Comment: No: D o not add to previous draw Performed By: #### 9 0150 #### [facility] [address] [place] [address], [place] HYALINE CASTS 1 /LPF Abnormal NONE SEEN [facility] Comment on above: Order Comment: No: D o not add to previous draw Performed By: #### 9 0150 #### [facility] [address] [place] [address], [place] KETONE Negative Normal NEGATIVE [facility] Comment on above: Order Comment: No: D o not add to previous draw Performed By: #### 9 0150 #### [facility] [address] [place] [address], [place] LEUK BURAK Negative Normal NEGATIVE [facility] Comment on above: Order Comment: No: D o not add to previous draw Performed By: #### 9 0150 #### [facility] [address] [place] [address], [place] Nitrite Ql (U) Negative Normal NEGATIVE [facility] Comment on above: Order Comment: No: D o not add to previous draw Performed By: #### 9 0150 #### [facility] [address] [place] [address], [place] pH (Bld) 6.0 Normal 5.0-8.0 [facility] Comment on above: Order Comment: No: D o not add to previous draw Performed By: #### 9 0150 #### [facility] [address] [place] [address], [place] Protein [Mass/Vol] Negative Normal NEGATIVE [facility] Comment on above: Order Comment: No: D o not add to previous draw Performed By: #### 9 0150 #### [facility] [address] [place] [address], [place] RBC (Bld) [#/Vol] 0-2 Abnormal NONE SEEN [facility] Comment on above: Order Comment: No: D o not add to previous draw Performed By: #### 9 0150 #### [facility] [address] [facility]. [address] SPEC GRAV 1.012 Low 1.015-1.020 [facility] Comment on above: Order Comment: No: D o not add to previous draw Performed By: #### 9 0150 #### [facility] [address] [place] [address], [facility] WBC UA 0-2 Abnormal NONE SEEN [facility] Comment on above: Order Comment: No: D o not add to previous draw Performed By: #### 9 0150 #### [facility] [address] UREA NITROGEN URon 0 Urea nitrogen [Mass/Vol] 566 mg/dL Normal [facility] Comment on above: Order Comment: No: D o not add to previous draw Result Comment: Ther e are no established reference values for random urine specimens Performed By: #### 2 5706, 99221, 73479 #### [address] US RENALon 10-05-2019 US RENAL [facility] Department of Radiology [address] [place] [id number] ======== Patient Name: KEL CASTILLO : 1955 Sex: M Age: Race: White Pt. Location: [id number] Patient Status: I Ordered Date: 10/05/2019 10:45:00 [...] hydronephrosis. Electronically signed: Robinson Castellanos. Transcribed by: [email or web address], User Resident: Electronically Signed by: ROBINSON CASTELLANOS @ 10/05/2019 03:41 PM Normal [facility] Comment on above: Order Comment: [place] nephrosis Vital Signs Date Time Vital Sign Value Performing Clinician Facility 01-27-2025 10: Body height 167.6 cm AdvanDxff [facility]-C [facility] 01-27-2025 10:22-040 Body mass index (BMI) [Ratio] 26.79 kg/m2 Darrick Verhoff PA-C [facility] 01-27-2025 10:040 Body weight 75.3 kg Darrick Verhoff PA-C [facility] 01-27-2025 10:22-040 Diastolic blood pressure 62 mm[Hg] Darrick S B Ehoff PA-C [facility] 01-27-2025 10:22-0400 Heart rate 57 /min Darrick Verhoff PA-C Work Phone: [facility] 01-27-2025 10:22-0400 Respiratory rate 20 /min Darrick Verhoff PA-C Work Phone: [facility] 01-27-2025 10:22-0400 Systolic blood pressure 129 mm[Hg] Darrick Verhoff PA-C Work Phone: [facility] 01-19-2025 16:26-0400 Body height 165.1 cm [facility] 01-19-2025 16:26-0400 Body mass index (BMI) [Ratio] 27.8 kg/m2 [facility] 01-19-2025 16:26-0400 Body weight 75.74 kg [facility] 01-19-2025 16:26-0400 Diastolic blood pressure 53 mm[Hg] [facility] 01-19-2025 16:26-0400 Heart rate 64 /min [facility] 01-19-2025 16:26-0400 Respiratory rate 16 /min [facility] 01-19-2025 16:26-0400 SaO2% (BldA) [Mass fraction] 96 % [facility] 01-19-2025 16:26-0400 Systolic blood pressure 125 mm[Hg] [facility] 01-19-2025 13:06-0400 Body mass index (BMI) [Ratio] 25.21 kg/m2 Susan Watson [employer] Work Phone: [facility] 01-19-2025 13:06-0400 Body temperature 98.49 [degF] Susan Watson [employer] Work Phone: [facility] 01-19-2025 13:06-0400 Body weight 75.21 kg Susan Watson [employer] Work Phone: [facility] 01-19-2025 13:06-0400 Diastolic blood pressure 70 mm[Hg] Susan Watson [employer] Work Phone: [facility] 01-19-2025 13:06-0400 Heart rate 66 /min Susan Aichholz [employer] Work Phone: [facility] 01-19-2025 13:06-0400 Respiratory rate 18 /min Susan Aichholz HANGERSMITH Work Phone: [facility] 01-19-2025 13:06-0400 SaO2% (BldA) [Mass fraction] 96 % Susan Aichholz HANGERSMITH Work Phone: [facility] 01-19-2025 13:06-0400 Systolic blood pressure 130 mm[Hg] Susan Aichholz HANGERSMITH Work Phone: [facility] 11-19-2024 13:03-0400 Body mass index (BMI) [Ratio] 25.21 kg/m2 Susan Aichholz HANGERSMITH Work Phone: [facility] 11-19-2024 13:03-0400 Body temperature 98.71 [degF] Susan Aichholz HANGERSMITH Work Phone: [facility] 11-19-2024 13:03-0400 Body weight 75.21 kg Susan Aichholz HANGERSMITH Work Phone: [facility] 11-19-2024 13:03-0400 Diastolic blood pressure 70 mm[Hg] Susan Aichholz HANGERSMITH Work Phone: [facility] 11-19-2024 13:03-0400 Heart rate 67 /min Susan Aichholz HANGERSMITH Work Phone: [facility] 11-19-2024 13:03-0400 Respiratory rate 18 /min Susan Aichholz HANGERSMITH Work Phone: [facility] 11-19-2024 13:03-0400 SaO2% (BldA) [Mass fraction] 96 % Susan Aichholz HANGERSMITH Work Phone: [facility] 11-19-2024 13:03-0400 Systolic blood pressure 130 mm[Hg] Susan Aichholz HANGERSMITH Work Phone: [facility] 10-27-2024 15:59-0400 Body height 165.1 cm [facility] 10-27-2024 15:59-0400 Body mass index (BMI) [Ratio] 27.8 kg/m2 [facility] 10-27-2024 15:59-0400 Body weight 75.8 kg [facility] 10-27-2024 15:59-0400 Diastolic blood pressure 73 mm[Hg] [facility] 10-27-2024 15:59-0400 Heart rate 56 /min [facility] 10-27-2024 15:59-0400 Respiratory rate 16 /min [facility] 10-27-2024 15:59-0400 SaO2% (BldA) [Mass fraction] 95 % [facility] 10-27-2024 15:59-0400 Systolic blood pressure 145 mm[Hg] [facility] 10-12-2024 11:22-0500 Body height 165.1 cm Ebony Mandeep Sofia DO Work Phone: [facility] 10-12-2024 11:22-0500 Body mass index (BMI) [Ratio] 28.29 kg/m2 Ebony Mandeep Sofia DO Work Phone: [facility] 10-12-2024 11:22-0500 Body weight 77.1 kg Ebony Mandeep Sofia DO Work Phone: [facility] 10-12-2024 11:22-0500 Diastolic blood pressure 61 mm[Hg] Ebony Mandeep Sofia DO Work Phone: [facility] 10-12-2024 11:22-0500 Heart rate 58 /min Ebony Mandeep Sofia DO Work Phone: [facility] 10-12-2024 11:22-0500 Systolic blood pressure 136 mm[Hg] Ebony Mandeep Sofia DO Work Phone: [facility] 10-08-2024 13:45-0500 Body mass index (BMI) [Ratio] 25.82 kg/m2 Susan Aichholz HANGERSMITH Work Phone: [facility] 10-08-2024 13:45-0500 Body temperature 98.1 [degF] Susan Watson HANGERSMITH Work Phone: [facility] 10-08-2024 13:45-0500 Body weight 77.02 kg Susan Watson HANGERSMITH Work Phone: [facility] 10-08-2024 13:45-0500 Diastolic blood pressure 72 mm[Hg] Susan Manzoz HANGERSMITH Work Phone: [facility] 10-08-2024 13:45-0500 Heart rate 51 /min Susan Manzoz HANGERSMITH Work Phone: [facility] 10-08-2024 13:45-0500 Respiratory rate 18 /min Susan Watson HANGERSMITH Work Phone: [facility] 10-08-2024 13:45-0500 SaO2% (BldA) [Mass fraction] 97 % Susan Watson HANGERSMITH Work Phone: [facility] 10-08-2024 13:45-0500 Systolic blood pressure 130 mm[Hg] Susan Manzoz HANGERSMITH Work Phone: [facility] 06-17-2024 13:13-0500 Body height 172.7 cm Jayy Moyerk HANGERSMITH Work Phone: [facility] 06-17-2024 13:13-0500 Body mass index (BMI) [Ratio] 27.55 kg/m2 Jayy Shayzpatrick HANGERSMITH Work Phone: [facility] 06-17-2024 13:13-0500 Body temperature 96.6 [degF] Jayy Padillapatrick HANGERSMITH Work Phone: [facility] 06-17-2024 13:13-0500 Body weight 82.19 kg Jayy Padillapatrick HANGERSMITH Work Phone: [facility] 06-17-2024 13:13-0500 Diastolic blood pressure 78 mm[Hg] Jayy Coronado HANGERSMITH Work Phone: [facility] 06-17-2024 13:13-0500 Heart rate 57 /min Jayy Coronado HANGERSMITH Work Phone: [facility] 06-17-2024 13:13-0500 Respiratory rate 16 /min Jayy Coronado HANGERSMITH Work Phone: [facility] 06-17-2024 13:13-0500 SaO2% (BldA) [Mass fraction] 94 % Jayy Coronado HANGERSMITH Work Phone: [facility] 06-17-2024 13:13-0500 Systolic blood pressure 122 mm[Hg] Jayy Coronado HANGERSMITH Work Phone: [facility] 05-04-2024 09:36-0400 Body height 167.6 cm Ebonysotero Kaufman Sofia DO Work Phone: [facility] 05-04-2024 09:36-0400 Body mass index (BMI) [Ratio] 28.64 kg/m2 Ebony Mandeep Sofia DO Work Phone: [facility] 05-04-2024 09:36-0400 Body weight 80.5 kg Ebony Mandeep Sofia DO Work Phone: [facility] 05-04-2024 09:36-0400 Diastolic blood pressure 63 mm[Hg] Ebony Mandeep Sofia DO Work Phone: [facility] 05-04-2024 09:36-0400 Heart rate 57 /min Ebony Mandeep Sofia DO Work Phone: [facility] 05-04-2024 09:36-0400 Systolic blood pressure 138 mm[Hg] Ebony Mandeep Sofia DO Work Phone: [facility] 03-31-2024 13:00-0400 Body height 167.64 cm [facility] 03-31-2024 13:00-0400 Body mass index (BMI) [Ratio] 29.4 kg/m2 [facility] 03-31-2024 13:00-0400 Body temperature 97 [degF] [facility] 03-31-2024 13:00-0400 Body weight 82.72 kg [facility] 03-31-2024 13:00-0400 Diastolic blood pressure 63 mm[Hg] [facility] 03-31-2024 13:00-0400 Heart rate 58 /min [facility] 03-31-2024 13:00-0400 Respiratory rate 18 /min [facility] 03-31-2024 13:00-0400 SaO2% (BldA) [Mass fraction] 97 % [facility] 03-31-2024 13:00-0400 Systolic blood pressure 143 mm[Hg] [facility] 09-19-2023 13:53-0500 Body height 172.7 cm Shaikh Cornelio LEMON Work Phone: [facility] 09-19-2023 13:53-0500 Body mass index (BMI) [Ratio] 28.43 kg/m2 Shaikh Cornelio LEMON Work Phone: [facility] 09-19-2023 13:53-0500 Body temperature 97.5 [degF] Shaikh Cornelio LEMON Work Phone: [facility] 09-19-2023 13:53-0500 Body weight 84.82 kg Shaikh Cornelio LEMON Work Phone: [facility] 09-19-2023 13:53-0500 Diastolic blood pressure 60 mm[Hg] Shaikh Cornelio LEMON Work Phone: [facility] 09-19-2023 13:53-0500 Heart rate 59 /min Shaikh Cornelio LEMON Work Phone: [facility] 09-19-2023 13:53-0500 SaO2% (BldA) [Mass fraction] 95 % Shaikh Cornelio LEMON Work Phone: [facility] 09-19-2023 13:53-0500 Systolic blood pressure 118 mm[Hg] Shaikh Cornelio LEMON Work Phone: [facility] 01-25-2023 10:00-0400 Body height 167.64 cm Lisseth Harveys Other [employer] Other 01-25-2023 10:00-0400 Body mass index (BMI) [Ratio] 31.57 kg/m2 Lisseth Harveys Other [employer] Other 01-25-2023 10:00-0400 Body temperature 96.2 [degF] Lisseth Harveys Other [employer] Other 01-25-2023 10:00-0400 Body weight 88.72 kg Lisseth Harveys Other [employer] Other 01-25-2023 10:00-0400 Diastolic blood pressure 76 mm[Hg] Lisseth Harveys Other [employer] Other 01-25-2023 10:00-0400 Respiratory rate 20 /min Lisseth Harveys Other [employer] Other 01-25-2023 10:00-0400 SaO2% (BldA) [Mass fraction] 98 % Lisseth Harveys Other [employer] Other 01-25-2023 10:00-0400 Systolic blood pressure 147 mm[Hg] Lisseth Harveys Other [employer] Other 08-15-2022 15:40-0500 Body height 167.6 cm Ebony Kaufman DO Work Phone: [facility] 08-15-2022 15:40-0500 Body weight 89.81 kg Ebony Kaufman DO Work Phone: [facility] 08-15-2022 15:40-0500 Diastolic blood pressure 78 mm[Hg] Ebonysotero Kaufman DO Work Phone: [facility] 08-15-2022 15:40-0500 Heart rate 61 /min Ebony Kaufman DO Work Phone: [facility] 08-15-2022 15:40-0500 SaO2% (BldA) [Mass fraction] 100 % Ebony Kaufman DO Work Phone: [facility] 08-15-2022 15:40-0500 Systolic blood pressure 148 mm[Hg] Ebonysotero Kaufman DO Work Phone: [facility] 07-10-2022 14:40-0500 Body height 167.64 cm Lisseth Harveydiego Other [employer] Other 07-10-2022 14:40-0500 Body mass index (BMI) [Ratio] 31.95 kg/m2 Lisseth Harveys Other [employer] Other 07-10-2022 14:40-0500 Body weight 89.81 kg Lisseth Harveys Other [employer] Other 07-10-2022 14:40-0500 Diastolic blood pressure 70 mm[Hg] Azryan Harveys Other [employer] Other 07-10-2022 14:40-0500 SaO2% (BldA) [Mass fraction] 95 % Azryan Harveys Other [employer] Other 07-10-2022 14:40-0500 Systolic blood pressure 128 mm[Hg] Aziz Bakhous Other [employer] Other 06-05-2022 16:30-0400 Body height 167.64 cm Corona Caseban Other [employer] Other 06-05-2022 16:30-0400 Body mass index (BMI) [Ratio] 32.12 kg/m2 Corona Caseban Other [employer] Other 06-05-2022 16:30-0400 Body temperature 96.5 [degF] Corona Caseban Other [employer] Other 06-05-2022 16:30-0400 Body weight 90.27 kg Corona Caseban Other [employer] Other 06-05-2022 16:30-0400 Diastolic blood pressure 82 mm[Hg] Corona Caseban Other [employer] Other 06-05-2022 16:30-0400 Respiratory rate 20 /min Corona Caseban Other [employer] Other 06-05-2022 16:30-0400 SaO2% (BldA) [Mass fraction] 96 % Corona Caseban Other [employer] Other 06-05-2022 16:30-0400 Systolic blood pressure 140 mm[Hg] Corona Caseban Other [employer] Other 04-10-2022 09:44-0400 Body height 165.1 cm Ebony Mandeep DO Work Phone: [facility] 04-10-2022 09:44-0400 Body weight 89.68 kg Ebony Mandeep DO Work Phone: [facility] 04-10-2022 09:44-0400 Diastolic blood pressure 69 mm[Hg] Ebony Kaufman DO Work Phone: [facility] 04-10-2022 09:44-0400 Heart rate 57 /min Ebony Kaufman DO Work Phone: [facility] 04-10-2022 09:44-0400 Systolic blood pressure 146 mm[Hg] Ebony Kaufman DO Work Phone: [facility] 02-27-2022 15:30-0400 Body height 167.64 cm Corona Casesoila Other [employer] Other 02-27-2022 15:30-0400 Body mass index (BMI) [Ratio] 31.95 kg/m2 Wallacekaren Caseban Other [employer] Other 02-27-2022 15:30-0400 Body temperature 96.9 [degF] Wallacekaren Monroe Other [employer] Other 02-27-2022 15:30-0400 Body weight 89.81 kg Corona Caseban Other [employer] Other 02-27-2022 15:30-0400 Diastolic blood pressure 76 mm[Hg] Corona Evieban Other [employer] Other 02-27-2022 15:30-0400 Respiratory rate 20 /min Corona Evieban Other [employer] Other 02-27-2022 15:30-0400 SaO2% (BldA) [Mass fraction] 97 % Wallacekaren Caseban Other [employer] Other 02-27-2022 15:30-0400 Systolic blood pressure 142 mm[Hg] Corona Caseban Other [employer] Other 01-29-2022 12:00-0400 Body height 167.64 cm Cristo Suazo Other [employer] Other 01-29-2022 12:00-0400 Body mass index (BMI) [Ratio] 32.84 kg/m2 Cristo Suazo Other [employer] Other 01-29-2022 12:00-0400 Body weight 92.31 kg Cristo Suazo Other [employer] Other 01-29-2022 12:00-0400 Diastolic blood pressure 78 mm[Hg] Cristo Suazo Other [employer] Other 01-29-2022 12:00-0400 Respiratory rate 18 /min Cristo Suazo Other [employer] Other 01-29-2022 12:00-0400 SaO2% (BldA) [Mass fraction] 98 % Cristo Suazo Other [employer] Other 01-29-2022 12:00-0400 Systolic blood pressure 142 mm[Hg] Cristo Suazo Other [employer] Other 12-26-2021 17:00-0400 Body height 167.64 cm Cristo Suzao Other [employer] Other 12-26-2021 17:00-0400 Body mass index (BMI) [Ratio] 31.15 kg/m2 Cristo Suazo Other [employer] Other 12-26-2021 17:00-0400 Body weight 87.54 kg Cristo Lambahan Other [employer] Other 12-26-2021 17:00-0400 Diastolic blood pressure 79 mm[Hg] Cristo Suazo Other [employer] Other 12-26-2021 17:00-0400 Respiratory rate 18 /min Cristo Suazo Other [employer] Other 12-26-2021 17:00-0400 SaO2% (BldA) [Mass fraction] 95 % Cristo Suazo Other [employer] Other 12-26-2021 17:00-0400 Systolic blood pressure 161 mm[Hg] Cristo Suazo Other [employer] Other 12-22-2021 08:25-0400 Body height 165.1 cm Jessie Bright MD Work Phone: [facility] 12-22-2021 08:25-0400 Body weight 87.68 kg Jessie Bright MD Work Phone: [facility] 12-22-2021 08:25-0400 Diastolic blood pressure 70 mm[Hg] Jessie Bright MD Work Phone: [facility] 12-22-2021 08:25-0400 Heart rate 59 /min Jessie Bright MD Work Phone: [facility] 12-22-2021 08:25-0400 Systolic blood pressure 153 mm[Hg] Jessie Bright MD Work Phone: [facility] 05-23-2021 15:40-0400 Body height 167.64 cm Reuben Triana Other [employer] Other 05-23-2021 15:40-0400 Body mass index (BMI) [Ratio] 30.84 kg/m2 Reuben Triana Other [employer] Other 05-23-2021 15:40-0400 Body temperature 96.3 [degF] Reuben Triana Other [employer] Other 05-23-2021 15:40-0400 Body weight 86.68 kg Reuben Triana Other [employer] Other 05-23-2021 15:40-0400 Diastolic blood pressure 62 mm[Hg] Reuben Triana Other [employer] Other 05-23-2021 15:40-0400 Respiratory rate 18 /min Reuben Triana Other [employer] Other 05-23-2021 15:40-0400 SaO2% (BldA) [Mass fraction] 94 % Reuben Triana Other [employer] Other 05-23-2021 15:40-0400 Systolic blood pressure 140 mm[Hg] Reuben Triana Other [employer] Other Encounters Encounter Date Encounter Type Care Provider Facility Start: 01-27-2025 End: 01-27-2025 Office outpatient new 45 minutes Darrick Sauer PA-C Work Phone: [facility] Comment on above: Cervical spondylosis (Primary Dx) Start: 01-27-2025 End: 01-27-2025 ambulatory DARRICK SAUER [facility] Start: 01-19-2025 End: 01-19-2025 Patient encounter procedure [facility] Nephrology Adilson Work Phone: Start: 01-19-2025 End: 01-19-2025 Bamboo flowsheet Susan Watson NP Work Phone: [facility] Start: 01-19-2025 End: 01-19-2025 Bamboo flowsheet Susan Watson HANGERSMITH Work Phone: [facility] Start: 01-19-2025 End: 01-19-2025 ambulatory SUSAN WATSON [facility] Work Phone: Start: 01-19-2025 End: 01-19-2025 Office outpatient visit 25 minutes Susan Watson HANGERSMITH Work Phone: [facility] Comment on above: Cervical spondylosis (Primary Dx); Neck pain; Primary hypertension (CMS/HCC); Chronic kidney disease, stage 4 (severe) (CMS/HCC); EDITH (generalized anxiety disorder) ([facility]/HCC); H/O: lung cancer; MCI (mild cognitive impairment) Start: 01-14-2025 [facility] Start: 01-12-2025 [facility] Start: 01-11-2025 End: 01-11-2025 ambulatory [facility] Start: 01-07-2025 End: 01-07-2025 Orders Only Susan Watson HANGERSMITH Work Phone: [facility] Comment on above: Neck pain (Primary D x) Start: 12-24-2024 End: 12-24-2024 Refill Susan Watson HANGERSMITH Work Phone: [facility] Comment on above: Primary hypertension (CMS/HCC); Other hyperlipidemia; Neck pain; Recurrent major 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) (CMS/HCC); 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); Gastroesophageal reflux disease without esophagitis; Chronic obstructive pulmonary disease, unspecified COPD type (CMS/HCC); EDITH (generalized anxiety disorder) (CMS/HCC) Start: 12-07-2024 End: 12-07-2024 Refill Susan Watson HANGERSMITH Work Phone: [facility] Comment on above: Other hyperlipidemia ; 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); Primary hypertension (CMS/HCC); Recurrent major 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) (CMS/HCC); EDITH (generalized anxiety disorder) (CMS/HCC) Start: 12-01-2024 End: 12-01-2024 Refill Susan Anaisz HANGERSMITH Work Phone: [facility] Comment on above: EDITH (generalized anx iety disorder) (CMS/HCC) (Primary Dx) Start: 11-19-2024 End: 11-19-2024 Bamboo flowsheet Susan Watson HANGERSMITH Work Phone: [facility] Start: 11-19-2024 End: 11-19-2024 Bamboo flowsheet Susanman Watson HANGERSMITH Work Phone: [facility] Start: 11-19-2024 End: 11-19-2024 Office outpatient visit 25 minutes Susan Watson HANGERSMITH Work Phone: [facility] Comment on above: Neck pain (Primary D x); Primary hypertension (CMS/HCC); Chronic kidney disease, stage 4 (severe) (CMS/HCC); EDITH (generalized anxiety disorder) (CMS/HCC); Functional gait abnormality; MCI (mild cognitive impairment) Start: 11-19-2024 End: 11-19-2024 ambulatory SUSAN SHIRLEY Not Available Start: 11-13-2024 End: 11-13-2024 Refill Susan Shirley HANGERSMITH Work Phone: [facility] Comment on above: Primary hypertension (CMS/HCC); Other hyperlipidemia; Recurrent major 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) (CMS/HCC); 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); Gastroesophageal reflux disease without esophagitis; EDITH (generalized anxiety disorder) (CMS/HCC) Start: 11-12-2024 End: 11-12-2024 Refill Susan Anaisz HANGERSMITH Work Phone: [facility] Comment on above: Primary hypertension (CMS/HCC); Other hyperlipidemia; Recurrent major 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) (CMS/HCC); 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); Gastroesophageal reflux disease without esophagitis; EDITH (generalized anxiety disorder) (CMS/HCC) Start: 11-09-2024 End: 11-09-2024 Refill Susan Watson HANGERSMITH Work Phone: [facility] Comment on above: Other hyperlipidemia (CMS/HCC); EDITH (generalized anxiety disorder) ([facility]/HCC); Recurrent major 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) ([facility]/HCC) Start: 10-27-2024 End: 10-27-2024 ambulatory [facility] Work Phone: Start: 10-27-2024 End: 10-27-2024 Patient encounter procedure [facility] Nephrology Adilson Work Phone: Start: 10-20-2024 End: 10-20-2024 ambulatory [facility] Start: 10-13-2024 End: 10-13-2024 ambulatory [facility] Start: 10-12-2024 End: 10-12-2024 ambulatory EBONY BLACK Facility:[facility] Start: 10-12-2024 End: 10-12-2024 Patient encounter procedure Ebony Black DO Work Phone: Neurology Comment on above: Gait abnormality (Pr imary Dx); Memory loss; Neck pain Start: 10-08-2024 End: 10-08-2024 Bamboo flowsheet Susan Watson HANGERSMITH Work Phone: [facility] Start: 10-08-2024 End: 10-08-2024 Bamboo flowsheet Susan Watson HANGERSMITH Work Phone: [facility] Start: 10-08-2024 End: 10-08-2024 ambulatory SUSAN WATSON Not Available Start: 10-08-2024 End: 10-08-2024 Office outpatient visit 25 minutes Susan Watson HANGERSMITH Work Phone: [facility] Comment on above: Primary hypertension (CMS/HCC) (Primary Dx); Chronic obstructive pulmonary disease, unspecified (CMS/HCC); Chronic kidney disease, stage 4 (severe) (CMS/HCC); 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); Gastroesophageal reflux disease without esophagitis; EDITH (generalized anxiety disorder) (CMS/HCC); Recurrent major depressive disorder, in full remission (CMS/HCC); Mixed hyperlipidemia (CMS/HCC); MCI (mild cognitive impairment); Other hyperlipidemia (CMS/HCC); Recurrent major 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) (CMS/HCC); Chronic obstructive pulmonary disease, unspecified COPD type (CMS/HCC) Start: 09-08-2024 End: 09-08-2024 ambulatory MISTY POLO Facility:[facility] Start: 09-08-2024 End: 09-08-2024 Patient encounter procedure Misty Polo PhD Work Phone: Neuropyschology Comment on above: Major neurocognitive disorder (HCC) (Primary Dx); JITENDRA (obstructive sleep apnea); Chronic kidney disease, unspecified CKD stage; Coronary artery disease, unspecified vessel or lesion type, unspecified whether angina present, unspecified whether wales or transplanted heart; Complaints of memory disturbance Start: 06-27-2024 End: 06-27-2024 Orders Only Jayy Coronado HANGERSMITH Work Phone: [facility] Comment on above: 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) (CMS/HCC) Start: 06-23-2024 End: 06-23-2024 External Result Encounter Jayy Coronado NP Work Phone: [facility] Unsolicited Start: 06-23-2024 End: 06-23-2024 External Result Encounter Jayy Coronado NP Work Phone: [facility] Unsolicited Start: 06-23-2024 End: 06-23-2024 ambulatory JAYY CORONADO [facility] Start: 06-17-2024 End: 06-17-2024 Bamboo flowsheet Jayy Coronado HANGERSMITH Work Phone: [facility] Start: 06-17-2024 End: 06-17-2024 Bamboo flowsheet Jayy Coronado HANGERSMITH Work Phone: [facility] Start: 06-17-2024 End: 06-17-2024 ambulatory JAYY CORONADO Not Available Start: 06-17-2024 End: 06-17-2024 Office outpatient visit 15 minutes Jayy Coronado HANGERSMITH Work Phone: [facility] Comment on above: Primary hypertension (CMS/HCC) (Primary Dx); Other hyperlipidemia (CMS/HCC); 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); Frequent falls; Functional gait abnormality; CKD (chronic kidney disease) stage 4, GFR 15-29 ml/min (CMS/HCC) Start: 06-10-2024 End: 06-10-2024 Bamboo flowsheet Jayy Coronado HANGERSMITH Work Phone: [facility] Start: 06-10-2024 End: 06-10-2024 Bamboo flowsheet Jayy Coronado HANGERSMITH Work Phone: [facility] Start: 06-10-2024 ambulatory JAYY SHAYZPATRICK No t Available Start: 05-12-2024 ambulatory EBONY KAUFMAN Facility: [facility] Start: 05-12-2024 End: 05-12-2024 Subsequent hospital visit by physician Ct [facility] Radiology Comment on above: Memory loss [R41.3] Start: 05-04-2024 End: 05-04-2024 ambulatory EBONY BLACK Facility:[facility] Start: 05-04-2024 End: 05-04-2024 Patient encounter procedure Ebony Black DO Work Phone: Neurology Comment on above: Memory loss (Primary Dx); Abnormality of gait Start: 03-31-2024 End: 03-31-2024 ambulatory [facility] Work Phone: Start: 03-31-2024 End: 03-31-2024 Patient encounter procedure [facility] Nephrology Adilson Work Phone: Start: 03-28-2024 End: 03-30-2024 Refill Shaikh Cornelio LEMON Work Phone: [facility] Comment on above: Gastroesophageal ref lux disease without esophagitis; Recurrent major 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) (CMS/HCC) Start: 03-25-2024 End: 03-25-2024 ambulatory [facility] Start: 03-11-2024 End: 03-11-2024 ambulatory SHAIKH CORNELIO Not Available Start: 02-26-2024 End: 02-27-2024 Emergency department patient visit AMADOU Hernandez [facility] Start: 09-19-2023 End: 09-19-2023 Office outpatient visit 25 minutes Shaikh Cornelio LEMON Work Phone: [facility] Comment on above: 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, subsequent encounter (Primary Dx); Recurrent major 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) (CMS/HCC); Other hyperlipidemia (CMS/HCC); EDITH (generalized anxiety disorder) (CMS/HCC); CKD (chronic kidney disease) stage 4, GFR 15-29 ml/min (CMS/HCC); Gastroesophageal reflux disease without esophagitis; 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); Primary hypertension (CMS/HCC); Chronic obstructive pulmonary disease, unspecified COPD type (CMS/HCC) Start: 04-09-2023 End: 04-09-2023 Emergency department patient visit NON STAFF Facility:[facility] Start: 04-09-2023 End: 04-09-2023 ambulatory Lisseth Toscaon Other [email or web address] Other Start: 04-09-2023 Telephone encounter Lisseth Toscano [facility] Nephrology Start: 03-13-2023 End: 10-01-2023 ambulatory B[place] Start: 01-25-2023 End: 01-25-2023 ambulatory Aziz Bakhous Other [email or web address] Other Start: 01-25-2023 Office outpatient vi sit 25 minutes Aziz Bakhous [facility] Start: 08-15-2022 End: 08-15-2022 Patient encounter procedure Ebony Kaufman DO Work Phone: Neurology Comment on above: MCI (mild cognitive impairment) (Primary Dx) Start: 07-27-2022 End: 07-28-2022 ambulatory SHAIKH Randolph GRIMES Facility:[facility] Start: 07-10-2022 End: 07-10-2022 ambulatory Aziz Bakhous Other [email or web address] Other Start: 07-10-2022 Office outpatient vi sit 15 minutes Aziz Bakhous [facility] [place] Start: 07-07-2022 End: 07-08-2022 ambulatory AZIZ BAKHOUS Facility:[facility] Start: 07-03-2022 End: 07-03-2022 ambulatory Kamal Chaban Facility:[facility] Start: 06-26-2022 End: 06-26-2022 ambulatory Nadira Choi Other [email or web address] Other Start: 06-26-2022 Telephone encounter Nadira Choi [facility] Family Medicine [place] Start: 06-05-2022 End: 06-05-2022 ambulatory Kamal Chaban Other [email or web address] Other Start: 06-05-2022 Office outpatient vi sit 25 minutes Kamal Chaban [facility] Start: 05-29-2022 End: 05-29-2022 ambulatory Thomas Hurtado Other [email or web address] Other Start: 05-29-2022 Telephone encounter Thomas Hurtado [facility] Start: 05-01-2022 Telephone encounter Elsa garcia [employer] [facility] [employer] [facility] Comment on above: Rug Clipper - O ther (In response to order placed in EPIC) Start: 04-11-2022 End: 04-11-2022 Patient encounter procedure MD Corona Monroe Work Phone: [facility] Start: 04-10-2022 End: 04-10-2022 Patient encounter procedure Ebony Kaufman DO Work Phone: Neurology Comment on above: 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) (Primary Dx); MCI (mild cognitive impairment) Start: 03-13-2022 End: 03-13-2022 ambulatory Thomas Genesis Other [email or web address] Other Start: 03-13-2022 Telephone encounter Thomas Genesis [facility] Start: 03-05-2022 End: 03-05-2022 ambulatory Thomas Genesis Other [email or web address] Other Start: 03-05-2022 Telephone encounter Thomas Genesis [facility] Start: 02-28-2022 End: 02-28-2022 ambulatory Corona Monroe Other [email or web address] Other Start: 02-28-2022 Telephone encounter Corona Monroe [facility] Area [facility] Start: 02-27-2022 End: 02-27-2022 ambulatory Corona Monroe Other [email or web address] Other Start: 02-27-2022 Office outpatient ne w 45 minutes Corona Monroe [facility] Start: 02-21-2022 Telephone encounter Cristo Bender [facility] [place] Start: 02-21-2022 End: 02-22-2022 ambulatory SHAIKH Randolph [email or web address] [email or web address] Other Start: 02-09-2022 End: 02-09-2022 ambulatory Pulm Fct Lab Main 11 Other Phone: Pulmonary Medicine Comment on above: Spirometry Question regarding M RI BRAIN WO IVCON Start: 02-09-2022 End: 02-09-2022 Patient encounter procedure Pulm Fct Lab Main 11 Other Phone: [facility] Start: 02-08-2022 End: 02-08-2022 Orders Only Driss Nur MD Work Phone: [facility] Comment on above: Cognitive impairment , mild, so stated (Primary Dx) Shortness of breath (Primary Dx) Cognitive impairment , mild, so stated [G31.84] Start: 02-08-2022 Telephone encounter Thomas Hurtado [facility] Psychiatry Start: 01-29-2022 End: 01-29-2022 ambulatory Cristo Suazo Other [email or web address] Other Start: 01-29-2022 Office outpatient vi sit 15 minutes Cristo Suazo [facility] Medicine [place] Start: 01-05-2022 End: 01-05-2022 ambulatory Cristo Suazo Other [email or web address] Other Start: 01-05-2022 Telephone encounter Cristo Bender [facility] Medicine [place] Start: 01-01-2022 End: 01-01-2022 ambulatory Cristo Suazo Other [email or web address] Other Start: 01-01-2022 Telephone encounter Cristo Bender [facility] [place] Start: 12-26-2021 End: 12-26-2021 ambulatory Cristo Suazo Other [email or web address] Other Start: 12-26-2021 Office outpatient vi sit 25 minutes [facility] [place] Start: 12-22-2021 End: 12-22-2021 Patient encounter procedure Jessie Bright MD Work Phone: Neurology Comment on above: 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); Cognitive impairment, mild, so stated; Depression, unspecified depression type Start: 12-18-2021 End: 12-18-2021 ambulatory Thomas Genesis Other [email or web address] Other Start: 12-18-2021 Telephone encounter Thomas Genesis [facility] Start: 12-06-2021 End: 12-06-2021 ambulatory Thomas Genesis Other [email or web address] Other Start: 12-06-2021 Telephone encounter Thomas Genesis [facility] Start: 12-04-2021 End: 12-04-2021 ambulatory Cristo Suazo Other [email or web address] Other Start: 12-04-2021 Telephone encounter Cristo Gabriele Napoleon [facility] [place] Start: 09-13-2021 End: 09-13-2021 ambulatory Thomas Genesis Other [email or web address] Other Start: 09-13-2021 Telephone encounter Thomas Genesis [facility] Start: 08-16-2021 End: 08-16-2021 ambulatory Cristo Suazo Other [email or web address] Other Start: 08-16-2021 Telephone encounter Cristojuvenal LambGabriele Napoleon [facility] [place] Start: 05-30-2021 Telephone encounter Cristo Bender [facility] [place] Start: 05-23-2021 Office outpatient vi sit 25 minutes Reuben Triana [facility] [place] Start: 05-23-2021 Telephone encounter Susannah salazar [facility] [place] Start: 04-03-2018 End: 04-04-2018 Patient encounter [facility] Start: 03-28-2018 End: 03-29-2018 Patient encounter [facility] Procedures Date Procedure Procedure Detail Performing Clinician Start: 06-23-2024 Lipid panel Jayy carranza [facility] Work Phone: Start: 06-23-2024 Lipid 1996 panel - S aram or Plasma Misty Polo PhD Work Phone: Start: 05-12-2024 Ct head/brain w/o contrast material Ebony Black DO Work Phone: Start: 02-09-2022 Brncdilat rspse spmt ry pre&post-brncdilat admn Igor Lao MD Work Phone: Start: 02-08-2022 MRI 3D POST PROCESSING Driss Nur MD Work Phone: Start: 02-08-2022 Mri brain brain stem w/o contrast material Jessie Bright MD Work Phone: Start: 12-22-2021 Adult depression screening assessment Jessie Bright MD Work Phone: Start: 06-21-2021 Colonoscopy Shaikh Link silva MD Work Phone: Plan of Treatment Date Care Activity Detail Author Start: 06-21-2031 Screening for malign ant neoplasm of colon [facility] Start: 06-23-2029 Lipid panel Lipid Screening [facility] Start: 2028 RSV Vaccine (1 - 1-d ose 75+ series) RSV Vaccine (1 - 1-dose 75+ series) [facility] Start: 01-27-2026 Adult BMI Screening Adult BMI Screen [facility] Start: 01-27-2026 Tobacco Screening Tobacco Screening [facility] Start: 04-16-2025 End: 04-16-2025 Patient encounter procedure 04/16/2025 11:00 AM EDT Office Visit Neurology [address] [place] [address] Ebony Trent DO [address] [place] [address] 6 month follow up Neurology Comment on above: 6 month follow up Start: 04-12-2025 Influenza vaccination [facility] Start: 03-10-2025 End: 03-10-2025 Patient encounter procedure 03/10/2025 9:45 AM EDT Office Visit [facility] [address] [place] [phone] Darrick Sauer PA-C [address] [place], [place] [id number] [facility] Start: 03-01-2025 End: 03-01-2025 Patient encounter procedure 03/01/2025 1:40 PM EDT Office Visit [facility] [address] [place] [phone] Susan Watson NP [address] [place] [phone] [facility] Start: 02-19-2025 End: 02-19-2025 Admission to same day surgery center 02/19/2025 2:58 PM EDT - 02/19/2025 3:07 PM EDT Surgery [facility] [address] [place] [phone] Abiodun Cherry MD [address] [facility] [place] [phone] INJECTION FACET JOINT Bilateral C 5/6,6/7 [79855 (CPT )] [facility] Comment on above: INJECTION FACET JOIN T Bilateral C 5/6,6/7 [69352 (CPT )] Start: 02-19-2025 End: 02-19-2025 Njx dx/ther agt pvrt facet jt crv/thrc 1 level INJECTION FACET JOINT Cervical spondylosis 02/19/2025 2:58 PM EDT [facility] Start: 02-19-2025 Subsequent hospital visit by physician 02/19/2025 2:58 PM EDT Hospital Encounter [facility] [address] [place] [phone] Abiodun Cherry MD [address] [place] [address] [facility] Start: 01-19-2025 End: 01-19-2025 Patient encounter procedure 01/19/2025 1:00 PM EDT Office Visit [facility] [address] [place] [phone] Susan Watson NP [address] [place] [phone] [facility] Start: 01-07-2025 End: 01-07-2026 XR Cervical spine 2 or 3 Views XR cervical spine 2 or 3 views Imaging Routine Neck pain Expected: 01/07/2025 (Approximate), Expires: 01/07/2026 [facility] Work Phone: Comment on above: Expected: 01/07/2025 (Approximate), Expires: 01/07/2026 Start: 11-19-2024 End: 11-19-2024 Patient encounter procedure [facility] Comment on above: Chronic obstructive pulmonary disease, unspecified COPD type (CMS/HCC) (Primary Dx); 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); Atherosclerosis of arteries of extremities (CMS/HCC); Primary hypertension (CMS/HCC); Gastroesophageal reflux disease without esophagitis; Chronic kidney disease, stage 4 (severe) (CMS/HCC); EDITH (generalized anxiety disorder) (CMS/HCC) Start: 09-16-2024 End: 09-16-2024 Patient encounter procedure 09/16/2024 1:00 PM EST Office Visit [facility] [address] [place] [phone] Jayy Coronado NP [address] [place] [phone] [facility] Start: 08-12-2024 Advance Directive Discussion Advance Directive Discussion [facility] Start: 06-30-2024 End: 06-30-2024 ambulatory 06/30/2024 11:30 AM EST Evaluation [facility] [address] [place] [address] Babak Aquino, PT [address] [place] [address] [facility] Start: 06-17-2024 End: 06-17-2025 Lipid 1996 panel - Serum or Plasma Lipid panel Lab Routine Primary hypertension (CMS/HCC) Expected: 06/17/2024 (Approximate), Expires: 06/17/2025 [facility] Comment on above: Expected: 06/17/2024 (Approximate), Expires: 06/17/2025 Start: 06-10-2024 End: 06-10-2024 Patient encounter procedure [facility] Comment on above: Arrived Start: 05-19-2024 Diabetes Screening Diabetes Screenin g [facility] Start: 05-12-2024 End: 05-12-2024 Patient encounter procedure 05/12/2024 7:45 AM EDT Appointment Radiology [address] [place] [address] ct wo contrast Radiology Comment on above: ct wo contrast Start: 04-12-2024 Covid-19 Vaccine ( season) Covid-19 Vaccine ( season) [facility] Start: 04-12-2024 Influenza vaccination Influenza Vacc ine (#1) [facility] Start: 12-24-2023 End: 12-24-2023 Patient encounter procedure 12/24/2023 1:15 PM EDT Office Visit [facility] [address] [place] [address] Shaikh Grimes MD [address] [place] [address] [facility] Start: 09-19-2023 End: 09-19-2024 CBC W Auto Differential panel - Blood CBC and differential Lab Routine Recurrent major 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) (CMS/HCC) CKD (chronic kidney disease) stage 4, GFR 15-29 ml/min ([facility]) 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 ([facility]) Primary hypertension ([facility]/HCC) Expected: 09/19/2023 (Approximate), Expires: 09/19/2024 [facility] Work Phone: Comment on above: Expected: 09/19/2023 (Approximate), Expires: 09/19/2024 Start: 09-19-2023 End: 09-19-2024 Comprehensive metabolic 2000 panel - Serum or Plasma Comprehensive metabolic panel Lab Routine Recurrent major 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) ([facility]) CKD (chronic kidney disease) stage 4, GFR 15-29 ml/min ([facility]/HCC) 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 ([facility]) Primary hypertension ([facility]) Expected: 09/19/2023 (Approximate), Expires: 09/19/2024 [facility] Comment on above: Expected: 09/19/2023 (Approximate), Expires: 09/19/2024 Start: 09-19-2023 End: 09-19-2024 Creatinine [Mass/volume] in Urine Creatinine, urine, random Lab Routine CKD (chronic kidney disease) stage 4, GFR 15-29 ml/min ([facility]/HCC) Expected: 09/19/2023 (Approximate), Expires: 09/19/2024 [facility] Comment on above: Expected: 09/19/2023 (Approximate), Expires: 09/19/2024 Start: 09-19-2023 End: 09-19-2024 Lipid 1996 panel - Serum or Plasma Lipid panel Lab Routine Other hyperlipidemia ([facility]) Expected: 09/19/2023 (Approximate), Expires: 09/19/2024 [facility] Comment on above: Expected: 09/19/2023 (Approximate), Expires: 09/19/2024 Start: 09-19-2023 End: 09-19-2024 Protein, urine, random Protein, urine, random Lab Routine CKD (chronic kidney disease) stage 4, GFR 15-29 ml/min ([facility]/HCC) Expected: 09/19/2023 (Approximate), Expires: 09/19/2024 [facility] Comment on above: Expected: 09/19/2023 (Approximate), Expires: 09/19/2024 Start: 08-12-2023 Advance Directive Discussion Advance Directive Discussion [facility] Start: 04-12-2023 Influenza vaccination Influenza Vacc ine (#1) [facility] Start: 12-22-2022 Adult depression screening assessment DEPRESSION SCREENING [facility] Start: 08-12-2022 ADVANCE DIRECTIVE DISCUSSION ADVANCE DIRECTIVE DISCUSSION [facility] Start: 04-12-2022 Influenza vaccination INFLUENZA (#1) [facility] Start: 02-09-2022 End: 03-10-2023 SPIROMETRY WITH DILATOR IF OBSTRUCTED [facility] Work Phone: Comment on above: Expected: 02/09/2022 , Expires: 03/10/2023 Start: 12-22-2021 End: 02-21-2022 SYPHILIS TOTAL W/REFLEX SYPHILIS TOTAL W/REFLEX Lab Routine Cognitive impairment, mild, so stated 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) Depression, unspecified depression type Expected: 12/22/2021, Expires: 02/21/2022 [facility] Work Phone: Comment on above: Expected: 12/22/2021 , Expires: 02/21/2022 Start: 12-22-2021 End: 02-21-2022 Thyrotropin [Units/volume] in Serum or Plasma TSH BLD Lab Routine Cognitive impairment, mild, so stated 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) Depression, unspecified depression type Expected: 12/22/2021, Expires: 02/21/2022 [facility] Work Phone: Comment on above: Expected: 12/22/2021 , Expires: 02/21/2022 Start: 12-22-2021 End: 02-21-2022 VITAMIN B12 BLOOD VITAMIN B12 BLOOD Lab Routine Cognitive impairment, mild, so stated 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) Depression, unspecified depression type Expected: 12/22/2021, Expires: 02/21/2022 [facility] Work Phone: Comment on above: Expected: 12/22/2021 , Expires: 02/21/2022 Start: 12-05-2021 COVID-19 VACCINE (4 - Booster for Pfizer series) COVID-19 VACCINE (4 - Booster for Pfizer series) [facility] Start: 10-01-2021 COVID-19 VACCINE (4 - Booster for Pfizer series) COVID-19 VACCINE (4 - Booster for Pfizer series) [facility] Start: 08-12-2021 ADVANCE DIRECTIVE DISCUSSION ADVANCE DIRECTIVE DISCUSSION [facility] Start: 2018 Fall Risk Screening Fall Risk Screen ing [facility] Start: 2018 PNEUMOCOCCAL: 65+ (1 - PCV) PNEUMOCOCCAL: 65+ (1 - PCV) [facility] Start: 2018 PNEUMOVAX AGE 65 AND OVER WITH 5YR LOOKBACK (#1) PNEUMOVAX AGE 65 AND OVER WITH 5YR LOOKBACK (#1) [facility] Start: 2008 PROSTATE CANCER SCREENING DISCUSSION PROSTATE CANCER SCREENING DISCUSSION [facility] Start: 2003 Administration of varicella zoster vaccine Zoster (Shingles) Vaccine (1 of 2) [facility] Start: 2003 SHINGRIX VACCINE (1 of 2) SHINGRIX VACCINE (1 of 2) [facility] Start: 1998 COLOGUARD (FIT-DNA) COLOGUARD (FIT-D NA) [facility] Start: 1998 Colonoscopy COLONOSCOPY [facility] Start: 1998 COLORECTAL CANCER SCREENING COLORECTAL CANCER SCREENING [facility] Start: [address] COLONOGRAPHY [facility] Start: 1998 DIABETES SCREEN DIABETES SCREEN [facility] Start: 1998 FECAL OCCULT BLOOD FECAL OCCULT BLOO D [facility] Start: 1998 Screening for malign ant neoplasm of colon [facility] Start: 1998 SIGMOIDOSCOPY SIGMOIDOSCOPY [facility] Start: 1988 Lipid panel Lipid Screening [facility] Start: 1988 LIPID SCREEN LIPID SCREEN [facility] Start: 1972 DTaP,Tdap and Td Vaccines (1 - Tdap) DTaP,Tdap and Td Vaccines (1 - Tdap) [facility] Start: 1972 Urine microalbumin profile [facility] Start: 1971 Adult BMI Follow Up Plan Adult BMI F ollow Up Plan [facility] Start: 1971 Anxiety Screening Anxiety Screening [facility] Start: 1971 HEPATITIS C SCREENING HEPATITIS C [facility] Start: 1971 Hepatitis C screening Hepatitis C [facility] Start: 1965 Depression Screening Depression Scre ening [facility] Start: 1953 Medicare Annual Well ness (AWV) Medicare Annual Wellness (AWV) [facility] Start: 1953 Screening for malign ant neoplasm of colon [facility] Start: 1953 Tobacco Counseling Tobacco Counselin g [facility] CBC W Auto Different ial panel - Blood CBC and differential Lab Routine Primary hypertension (CMS/HCC) Ordered: 06/17/2024 [facility] Work Phone: Comment on above: Ordered: 06/17/2024 Comprehensive metabo lic 1999 panel - Serum or Plasma Comprehensive metabolic panel Lab Routine Primary hypertension (CMS/HCC) Ordered: 06/17/2024 [facility] Comment on above: Ordered: 06/17/2024 End: 06-03-2025 CT Head WO contrast CT BRAIN WO IVCON Radiology Routine Memory loss 1 Occurrences starting 05/04/2024 until 06/03/2025 [facility] Work Phone: Comment on above: 1 Occurrences starti ng 05/04/2024 until 06/03/2025 End: 01-21-2023 Mri brain brain stem w/o contrast material MRI BRAIN WO IVCON Radiology Routine Cognitive impairment, mild, so stated 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) Depression, unspecified depression type 1 Occurrences starting 12/22/2021 until 01/21/2023 [facility] Work Phone: Comment on above: 1 Occurrences starti ng 12/22/2021 until 01/21/2023 Renal function 2000 panel - Serum or Plasma [facility] Renal function 1999 panel - Serum or Plasma [facility] Renal function 2000 panel - Serum or Plasma [facility] Immunizations Immunization Date Immunization Notes Care Provider Fa ciliarlette 08-06-2021 COVID-19 Vaccine Pfi zer - Documentation Purposes Only Corona Monroe Other [facility] [employer] Other 05-23-2021 influenza, high dose seasonal, preservative-free Susannah Geri Other [email or web address] Other 05-23-2021 Influenza, High-dose Seasonal, Quadrivalent, Preservative Free Shaikh Cornelio LEMON Work Phone: [facility] 05-23-2021 influenza virus vaccine, unspecified formulation Shaikh Cornelio LEMON Work Phone: [facility] 11-08-2020 COVID-19 Pfizer Susannah montano Other [email or web address] Other 10-19-2020 COVID-19 Vaccine Pfi zer - Documentation Purposes Only Susannahcarlo Nevarez Other [email or web address] Other 08-03-2020 influenza, high dose seasonal, preservative-free Susannah Juwarkar Other [email or web address] Other 08-03-2020 pneumococcal polysaccharide vaccine, 23 valent Susannah Juhannah Other [email or web address] Other 08-03-2020 influenza virus vaccine, unspecified formulation [facility] 08-03-2020 Influenza, High-dose Seasonal, Quadrivalent, Preservative Free Shaikh Cornelio LEMON Work Phone: [facility] 08-27-2019 pneumococcal conjuga te vaccine, 13 valent Susannah Juwarashok Other [email or web address] Other Payers Date Payer Category Payer Medicare (Managed Care) 1.2. [id number] 2024 Medicare O [employer] M EDICARE [id number] 2024 Unknown [id number] 2023 Medicaid [employer] MEDICARE A DVANTAGE [id number] 2023 Private Health Insurance [id number] 2022 [place] Blue [facility] [id number] 2022 Self-pay [id number] 2020 Unknown [employer]M BLUE ACCE SS PPO [id number] 2020-Present [phone] [address] [place] [address] PPO [id number] 2018 Unknown 2015 Medicare MEDICARE MEDICAR E A AND B [id number] 2015-Present [phone] [place] [address] Medicare [id number] 2015 Medicare [id number] 1959 Blue Cross Blue Shield [id number] 1959 Medicare [id number] 2.16.840.1.944355.19 1953 Unknown [id number] 2.16.840.1.392066.3.579.2. 593 1953 Unknown [id number] 2.16.840.1.701393.3.579.2. 593 1953 Unknown [id number] 2.16.840.1.119594.3.579.2. 593 1953 Unknown [id number] 2.16.840.1.984264.3.579.2. 1259 1953 Unknown [id number] 2.16.840.1.911678.3.579.2. 1259 1953 Unknown [id number] 2.16.840.1.900912.3.579.2. 1259 1953 Unknown [id number] 2.16.840.1.675779.3.579.2. 1259 1953 Unknown [id number] 2.16.840.1.325542.3.579.2. 1259 1953 Unknown [id number] 2.16.840.1.970515.3.579.2. 1259 1953 Unknown [id number] 2.16.840.1.853116.3.579.2. 1285 1953 Unknown [id number] 2.16.840.1.566012.3.579.2. 1285 1953 Unknown [id number] 2.16.840.1.034399.3.579.2. 128 1953 Unknown [id number] 2.16.840.1.406608.3.579.2. 1286 1953 Unknown [id number] 2.16.840.1.616961.3.579.2. 1285 1953 Unknown [id number] 2.16.840.1.077170.3.579.2. 1285 1953 Unknown [id number] 2.16.840.1.739565.3.579.2. 128 1953 Unknown [id number] 2.16.840.1.070248.3.579.2. 128 1953 Unknown [id number] 2.16.840.1.716073.3.579.2. 1286 Unknown [facility] [id number] Unknown [id number] 2.16.840.1.867690.3.579.2. 531 Unknown [id number] 2.16.840.1.127522.3.579.2. 531 Social History Date Type Detail Facility Start: 12-22-2021 End: 08-15-2022 Tobacco smoking status NYIS Never smoked tobacco [facility] Start: 12-22-2021 End: 01-27-2025 Tobacco use and exposure User of smokeless tobacco [facility] End: 07-14-2022 History of tobacco use Chews Tobacco [facility] Start: 1955 Sex Assigned At Not on file [facility] Start: 12-12-2021 End: 04-10-2022 Exposure to SARS-CoV-2 (event) Not sure [facility] Start: 09-22-2020 End: 07-22-2023 Sex Assigned At [facility] Start: 09-30-2020 End: 01-27-2025 Tobacco smoking status [facility] Ex-smoker (finding) [facility] Start: 1955 Sex Assigned At Male F [facility] Start: 08-15-2022 Tobacco use and exposure Former smokeless tobacco user [facility] Health History of tobacco use Current smoker [facility] History of tobacco use Cigarette Smoker [facility] Start: 07-12-2023 End: 03-11-2024 Tobacco use and exposure Smokeless tobacco non-user [facility] Start: 09-19-2023 End: 01-27-2025 Alcohol intake Lifetime non-drinker (finding) [facility] Start: 09-22-2020 End: 07-22-2023 History of Social function [facility] Within [...] [facility] How hard is it for you to pay for the very basics like food, housing, medical care, and heating Somewhat hard [facility] Do you feel stress - tense, restless, nervous, or anxious, or unable to sleep at night because your mind is troubled all the time - these days [OSQ] Very much [facility] (I/We) worried whether (my/our) food would run out before (I/we) got money to buy more. Never true [facility] Start: 07-12-2023 Alcohol Comment caffeine: 1-2 cups per day [facility] Start: 10-02-2019 End: 10-27-2024 Sex Male (finding) [facility] NEGATED: Highlighted rowStart: BERNIEF History of tobacco use Passive smoker [facility] Medical Equipment Procedure Code Equipment Code Equipment Origin al Text Equipment Identifier Dates Repair, hernia, umbilical Abdominal hernia surgical mesh, composite-polymer [id number] [facility] Start: 09-30-2020 Clinical Notes 05-23-2021 to 01-27-2025 Darrick Sauer PA-C - 01/27/2025 10:00 AM EDTPatient ALVARO Gann - 01/19/2025 1:00 PM Teresita Watson NP - 01/19/2025 1:00 PM Teresita Watson NP - 01/19/2025 6:48 AM EDT Note Date & Type Note Facility 01-27-2025 History of Presen t illness Narrative [facility] [address] [place] [address] Patient: Kel Castillo Jr. Sex: male : 1955 Age: 69 y.o. PCP: SUSAN WATSON, NATUROPATHIC DOCTOR-ANALYTICAL RESEARCH PROGRAM MANAGER 01/27/2025 Kel Castillo Jr. is here for a(n) initial consultation for neck pain. He He reports pain is 8/10 and increases with turning head. Chief Complaint Patient presents with Neck Pain HPI: NSAIDs contraindicated due to CKD and Plavix Neck Pain This is a new problem. Episode onset: November 2024. The problem occurs constantly. The problem has been gradually worsening. The pain is associated with nothing. The pain is present in the right side and midline. The quality of the pain is described as aching, stabbing, shooting, burning and cramping. The pain is at a severity of 8/10. The pain is severe. Exacerbated by: walking, stairs, bending, lifting, twisting, pushing/pulling, cough/sneeze, transitioning. The pain is Same all the time. Stiffness is present At night. Associated symptoms include headaches (about once a week). Pertinent negatives include no fever, numbness or tingling. Treatments tried: Baclofen, prednisone oral with no relief; tylenol, heat, ice, bengay topical with minimal relief; The effect of pain on patient's ADLS: Moderate Impairment. Past Medical History: Diagnosis Date Chronic kidney disease COPD (chronic obstructive pulmonary disease) [place] Coronary artery disease Hypertension Neck pain History reviewed. No pertinent surgical history. No Known Allergies History reviewed. No pertinent family history. Social History Socioeconomic History Marital status: Spouse name: Not on file Number of children: Not on file Years of education: Not on file Highest education level: Not on file Occupational History Not on file Tobacco Use Smoking status: Former Types: Cigarettes Smokeless tobacco: Current Types: Chew Vaping Use Vaping status: Never Used Substance and Sexual Activity Alcohol use: Never Drug use: Never Sexual activity: Not on file Other Topics Concern Not on file Social History Narrative Not on file Social Drivers of Health Financial Resource Strain: Medium Risk (07/22/2023) Received from [facility] Overall Financial Resource Strain (CARDIA) Difficulty of Paying Living Expenses: Somewhat hard Food Insecurity: No Food Insecurity (01/27/2025) Hunger Screening Food Insecurity - Worry: Never True Food Insecurity - Inability: Never True Transportation Needs: No Transportation Needs (07/22/2023) Received from [facility] PRAPARE - Transportation Lack of Transportation (Medical): No Lack of Transportation (Non-Medical): No Physical Activity: Inactive (07/22/2023) Received from [facility] Exercise Vital Sign Days of Exercise per Week: 0 days Minutes of Exercise per Session: 0 min Stress: Stress Concern Present (07/22/2023) Received from [facility] [place] [facility] [employer] - Occupational Stress Questionnaire Feeling of Stress : Very much Social Connections: Moderately Isolated (07/22/2023) Received from [facility] Social Connection and Isolation Panel [NHANES] Frequency of Communication with Friends and Family: More than three times a week Frequency of Social Gatherings with Friends and Family: Twice a week Attends [employer]ism Services: Never Active Member of Clubs or Organizations: No Attends Club or Organization Meetings: Never Marital Status: Interpersonal Safety: Unknown (10/03/2023) Received from [facility] Fear of Current or Ex-Partner: Not on file Emotionally Abused: Not on file Physically Abused: Not on file Sexually Abused: Not on file Physically or Sexually Abused: Not on file Housing Instability: Low Risk (07/22/2023) Received from [facility] Housing Stability Vital Sign Unable to Pay for Housing in the Last Year: No Number of Places Lived in the Last Year: 1 Unstable Housing in the Last Year: No Review of Systems Constitutional: Negative. Negative for chills, fatigue and fever. HENT: Negative. Eyes: Negative. Respiratory: Negative. Cardiovascular: Negative. Gastrointestinal: Negative. Endocrine: Negative. Genitourinary: Negative. Musculoskeletal: Positive for neck pain. Allergic/Immunologic: Negative. Neurological: Positive for headaches (about once a week). Negative for tingling and numbness. Hematological: Negative. Psychiatric/Behavioral: Negative. Vital Signs: BP 129/62 (BP Site: Left Arm, BP Postition: Sitting) Pulse 57 Resp 20 Ht 167.6 cm (5' 6 ) Wt 75.3 kg (166 lb) BMI 26.79 kg/m Physical Exam: GENERAL - Healthy patient that appears stated age. HEENT - Normocephalic / Atraumatic, Extraoccular movements intact, trachea midline, thyroid within normal limits. CV - pulse regular, Warm extremities with appropriate color of nailbeds. RESP - No obvious wheezing, No Shortness of Breath, No overexertion response to exam maneuvers. COORDINATION - remains intact. PSYCH - Alert and Oriented x4, Attentive and appropriate, constitutionally normal, displays normal mood and affect per situation, answered questions appropriately during examination, demonstrated appropriate attention during discussion, demonstrated appropriate cognitive reasoning and understanding of the medical condition by asking appropriate questions regarding the diagnosis and risks/benefits/alternatives of treatment modalities. No obvious deficits in memory, reasoning, or intellect. Cervical: SKIN - No rashes or bruising in the area of the patient s pain. LYMPH NODES - demonstrate no obvious enlargement. EXTREMITIES - Upper extremities are warm, with minimal edema and palpable pulses. Tenderness to palpation noted in the cervical spine and paraspinal musculature. Pain is elicited with flexion, extension, and lateral rotation of the cervical spine. Range of motion is diminished with these motions due to pain. Facet palpation is noted to be painful and concordant with the patient s normal pain complaints. STRENGTH - noted to be 5 out of 5 all muscle groups bilateral upper extremities including muscles involving shoulder flexion and abduction, elbow flexion and extension, as well as wrist flexion and extension and intrinsic muscles of the hand. No notable atrophy, fasciculations or spasm. SENSORY - No notable sensory deficits in the bilateral upper extremities to touch or pinprick in all dermatomal distributions. Spurlings sign is negative. Assessment/Treatment Plan: Kel was seen today for neck pain. Diagnoses and all orders for this visit: Cervical spondylosis - Case request operating room: INJECTION FACET JOINT Bilateral C 5/6,6/7 Bilateral C5/6, 6/7 Facet Injection/Medial Branch Block - under fluoroscopy It is hopeful that the described procedure will provide symptomatic pain relief. It is felt to be medically necessary noting that the patient has tried and failed more conservative modalities of therapy and this is the next most appropriate step. The procedure was described in detail to the patient as well as the potential benefits of pain reduction alongside risks of the procedure and alternatives. Risks were described as including, but not limited to bleeding, infection, nerve damage, spinal cord injury, paralysis, stroke, dural puncture headache, and medication reaction. The patient expressed understanding regarding the risks and benefits and wishes to proceed. Diagnostic facet injections and medial branch blocks should provide information to confirm that the noted facet arthropathy is the patient s most significant pain generator. If this provides significant but only temporary pain relief, the patient may in the future be a candidate for radiofrequency denervation of the facet joints to provide pain relief for approximately 1 year. Follow up 2 weeks after procedure The medications prescribed have been reviewed for medication interactions/contraindications and/or for upcoming procedures: continue current medication regimen without any changes. DISCUSSION: Treatment options discussed with patient and all questions answered to patient's satisfaction. Discussed the rules and regulations surrounding prescription of opioids and compliance at length. Failure to follow the rules and regulation will result in tapering and discontinuation of medications if applicable. Prescribed medication that requires intensive monitoring for toxicity We do not currently prescribe any controlled substance from this practice. The spine model was demonstrated and Xray was reviewed and used to explain the condition. Chronic conditions not treated during this visit that affected my overall medical decision making: Comorbidity- Anticoagulation therapy The patient is currently being treated with an anticoagulant. For this reason, we will need to confer with the patients other physicians to determine if it is safe to discontinue this therapy for any planned procedure. If it is determined that discontinuation would be a significant risk, we will have to weigh the potential benefits to the procedure. It may be necessary to delay or defer the procedure altogether. However, if the patient feels the potential benefit outweighs the risk and is willing to assume the responsibility, we may elect to proceed while anticoagulated despite the increased risks of bleeding, hematoma formation, and possible paralysis. Comorbidity- Coronary Artery disease The patient has a known history of heart disease and is currently under medical management for this condition. This must be considered due to the possible need for a pre-anesthetic medical evaluation prior to a procedure as well as the relative contraindication of the use of NSAID therapy detailed in recent literature. This approach was discussed with the patient along with the risks and benefits and the patient requests to proceed with this treatment plan. OARRS: Reviewed. Scribe Statement: ISusan CNA, scribed for and in the presence of DARRICK SAUER PA-C who performed the above service. Susan Anderson CNA 01/27/25 [id number] Darrick Sauer PA-C 01/27/25 [id number] documented in this encounter [facility] 01-27-2025 Instructions Susan Anderson CNA - 01/27/2025 10:00 AM EDT Facet Injection / Medial Branch Block (MBB) / Sacroiliac (SI) Joint Injection / Cluneal NB A facet injection and sacroiliac joint injection are injections of local anesthetic and steroid into a joint in the spine. A medial branch block is similar, but the medication is placed outside the joint space near the nerve that supplies the joint called the medial branch (steroid may or may not be used). You may require multiple injections depending upon how many joints are involved. How Long Will This Procedure Last? The extent and duration of pain relief may depend on the amount of inflammation and how many areas are involved. Other coexisting factors may be responsible for your pain. If your pain goes away for a short time, but then returns, you may be a candidate for radiofrequency ablation (RFA). Activity Be active. Attempt activities and movements that typically cause pain to see if it feels better while doing them. We will give you a pain diary. Please fill this out as directed by your nurse in pre-op. This will help your doctor determine the effectiveness of the injection, and how to proceed. Bring the pain diary with you to your follow-up appointment. Medications You should not take your pain medications for 4-6 hours before or after the injection in order to properly diagnose if the injection provides adequate relief. Resume your routine medications after your procedure. You may resume blood thinners per your regular schedule after the procedure. If you received sedation: If you received sedation for your procedure, you may feel sleepy or not yourself for several hours today. For the next 24 hours avoid activities that requires alertness or coordination. This includes: Driving or operating heavy machinery Using power tools Consuming alcohol Do not make important or complex decisions or sign legal documents in the next 24 hours. Other Instructions: If you feel severe pain at the injection site with swelling and redness, increased leg weakness, a fever of 101 or higher, headache (or worsening headache), changes in vision or urinary retention: Please call the office at , or have someone take you to the nearest emergency room. Tell the emergency room staff that you recently had a spine injection. A doctor must evaluate you for bleeding and injection complications. If you lose control over bowel, bladder, or legs: Go to the nearest emergency room. documented in this encounter [facility] [employer] 01-19-2025 History of Presen t illness Narrative Neck pain has gotten worse- pt perform ROM however with pain Pt is using ice and tylenol otc for pain Pt states that it does not do much for pain. Images from the original note were not included. Kel Castillo Jr is a 69 y.o. male presents with chief complaint of Follow-up HPI: Anxiety: started olanzapine since last office visit, helping some less anxious/fidgety but still present. No side effects of med Neck Pain This is a chronic problem. The current episode started more than 1 month ago. The problem occurs constantly. The problem has been gradually worsening. The pain is associated with nothing. The pain is present in the right side. The quality of the pain is described as aching and stabbing (sharp). The pain is at a severity of 8/10. The pain is moderate. The symptoms are aggravated by twisting, position and bending. The pain is Same all the time. Associated symptoms include weakness (bilat arms). Pertinent negatives include no chest pain, headaches, numbness, pain with swallowing, paresis, photophobia, tingling, trouble swallowing or visual change. He has tried acetaminophen, ice, heat and muscle relaxants for the symptoms. The treatment provided no relief. SUBJECTIVE: MEDICATIONS: Current Outpatient Medications Medication Instructions albuterol HFA 90 mcg/act inhaler 2 puffs, Every 4 hours PRN amLODIPine (NORVASC) 5 mg, Oral, Every 12 hours aspirin 81 mg, Oral, Every morning atorvastatin (LIPITOR) 80 mg, Oral, Nightly baclofen (LIORESAL) 10 mg, Oral, Nightly PRN buPROPion XL (WELLBUTRIN XL) 300 mg, Oral, Every morning, Do not crush, chew, or split. busPIRone (BUSPAR) 15 mg, Oral, 2 times daily clopidogrel (PLAVIX) 75 mg, Oral, Daily famotidine (PEPCID) 20 mg, Oral, 2 times daily fenofibrate micronized (ANTARA) 43 mg, Oral, Daily with breakfast Nsrhfiheocc-Laccrzxcm-Jvbtcr (Trelegy Ellipta) 100-62.5-25 MCG/ACT aerosol powder 1 puff, Inhalation, Daily, Rinse mouth after use. Inhale 1 puff Daily isosorbide mononitrate ER (IMDUR) 60 mg, Oral, Daily, Do not crush or chew. lisinopril 10 mg, Oral, Daily metoprolol tartrate (LOPRESSOR) 50 mg, Oral, 2 times daily nitroglycerin (NITROSTAT) 0.4 mg, Sublingual, Every 5 min PRN OLANZapine (ZYPREXA) 5 mg, Oral, Nightly predniSONE (Deltasone) 20 MG tablet Twice a day for 3 days, then once a day for 3 days, take with food sertraline (ZOLOFT) 200 mg, Oral, Daily traZODone (DESYREL) 100 mg, Oral, Nightly ALLERGIES: No Known Allergies REVIEW OF SYMPTOMS: Review of Systems Constitutional: Negative for activity change, appetite change and unexpected weight change. HENT: Negative for ear pain, nosebleeds, sneezing, trouble swallowing and voice change. Eyes: Negative for photophobia, pain, discharge and visual disturbance. Respiratory: Negative for apnea, chest tightness and wheezing. Cardiovascular: Negative for chest pain and leg swelling. Gastrointestinal: Negative for abdominal distention, blood in stool, constipation and diarrhea. Genitourinary: Negative for decreased urine volume, difficulty urinating, dysuria and hematuria. Musculoskeletal: Positive for neck pain. Skin: Negative for color change. Neurological: Positive for weakness (bilat arms). Negative for dizziness, tingling, tremors, seizures, numbness and headaches. Psychiatric/Behavioral: Negative for agitation, decreased concentration, hallucinations, self-injury and suicidal ideas. The patient is nervous/anxious. Hematological: Negative for adenopathy. Does not bruise/bleed easily. Endocrine: Negative for cold intolerance, heat intolerance, polydipsia and polyuria. Allergic/Immunologic: Negative for environmental allergies and food allergies. PAST MEDICAL HISTORY Past Medical History: Diagnosis Date Alcoholism ([facility]) ( quit drinking 25 years ago) Anxiety and depression ([facility]) Bronchitis Chicken pox CKD (chronic kidney disease), symptom management only, stage 4 (severe) ([facility]) Claudication of calf muscles ([facility]) COPD (chronic obstructive pulmonary disease) ([facility]) Coronary artery disease ([facility]) Depression with anxiety GERD (gastroesophageal reflux disease) Heart disease High blood pressure ([facility]) High cholesterol ([facility]) History of medical problems Hernia History of migraine headaches History of psychiatric care Kidney disease Lung cancer ([facility]) JITENDRA (obstructive sleep apnea) Peripheral vascular disease ([facility]) Umbilical hernia URTI (infection of the upper respiratory tract) Ventral hernia Past Surgical History: Procedure Laterality Date BYPASS GRAFT triple bypass COLONOSCOPY 07/20/2021 PCL HERNIA REPAIR 09/30/2020 Umbilical and Ventral hernia repair w/ PCLaffay LUNG REMOVAL, PARTIAL with radiation, right family history includes Diabetes in his mother and sister; Heart disease in his mother; Hypertension in his mother. OBJECTIVE: Visit Vitals BP 130/70 (BP Location: Left arm, Patient Position: Sitting, BP Cuff Size: Adult long) Pulse 66 Temp 98.5 F (Temporal) Resp 18 Wt 165 lb 12.8 oz SpO2 96% BMI 25.21 kg/m Smoking Status Former BSA 1.9 m Physical Exam Vitals and nursing note reviewed. Constitutional: Appearance: Normal appearance. HENT: Head: Normocephalic. Right Ear: Tympanic membrane, ear canal and external ear normal. Left Ear: Tympanic membrane, ear canal and external ear normal. Nose: Nose normal. Mouth/Throat: Mouth: Mucous membranes are moist. Pharynx: Oropharynx is clear. Eyes: Extraocular Movements: Extraocular movements intact. Conjunctiva/sclera: Conjunctivae normal. Neck: Vascular: No carotid bruit. Cardiovascular: Rate and Rhythm: Normal rate and regular rhythm. Pulses: Normal pulses. Heart sounds: Normal heart sounds. Pulmonary: Effort: Pulmonary effort is normal. Breath sounds: Normal breath sounds. Comments: Thorax posterior scar from lung cancer surgery, atrophy of muscle right side Abdominal: General: Bowel sounds are normal. Palpations: Abdomen is soft. There is no mass. Tenderness: There is no abdominal tenderness. Musculoskeletal: Cervical back: Neck supple. Right lower leg: No edema. Left lower leg: No edema. Comments: +tenderness right paracervcial region Hand grasps =bilat MMT 5/5 bilat UE and LE DTR's 1+ bilat UE Limited ROM cervical spine No atrophy of bilat UE Lymphadenopathy: Cervical: No cervical adenopathy. Skin: General: Skin is warm and dry. Capillary Refill: Capillary refill takes 2 to 3 seconds. Neurological: General: No focal deficit present. Mental Status: He is alert. Psychiatric: Mood and Affect: Mood normal. Behavior: Behavior normal. Thought Content: Thought content normal. Judgment: Judgment normal. ASSESSMENT AND PLAN: No follow-ups on file. Problem List Items Addressed This Visit MCI (mild cognitive impairment) Cont with neurology and neuropsych testing Chronic kidney disease, stage 4 (severe) ([facility]) Continue with Nephrology Check labs yearly and prn H/O: lung cancer EDITH (generalized anxiety disorder) ([facility]) Current meds: wellbutrin, buspar, sertraline and olanzapine Relevant Medications OLANZapine (ZyPREXA) 5 MG tablet Primary hypertension (CMS/HCC) Please check blood pressure daily and record DASH diet Limit caffeine Take medication as directed Contact office if chest pain, pressure, dizziness, shortness of breath, swelling legs Recommend slow position changes Current meds; raulito, b kelsy, calcium channel kelsy, imdur Neck pain - Primary Last appt: recommended Ice to affected area 4-5 times daily, Stretching exercises given, Trial baclofen at December try 1/2 pill, No NSAID d/t renal function Had plain film xray 01/11/2025 mod-severe deg changes C5-C6 and C6-C7 Refer to pain mgmt Trial prednisone taper Relevant Medications predniSONE (Deltasone) 20 MG tablet Other Relevant Orders Ambulatory referral to Pain Medicine Cervical spondylosis Relevant Orders Ambulatory referral to Pain Medicine Associated Problem(s): MCI (mild cognitive impairment) Cont with neurology and neuropsych testing Associated Problem(s): EDITH (generalized anxiety disorder) ([facility]) Current meds: wellbutrin, buspar, sertraline and olanzapine Associated Problem(s): Chronic kidney disease, stage 4 (severe) ([facility]) Continue with Nephrology Check labs yearly and prn Associated Problem(s): Primary hypertension (CMS/HCC) Please check blood pressure daily and record DASH diet Limit caffeine Take medication as directed Contact office if chest pain, pressure, dizziness, shortness of breath, swelling legs Recommend slow position changes Current meds; raulito, b kelsy, calcium channel kelsy, imdur Associated Problem(s): Neck pain Last appt: recommended Ice to affected area 4-5 times daily, Stretching exercises given, Trial baclofen at HS, may try 1/2 pill, No NSAID d/t renal function Had plain film xray 01/11/2025 mod-severe deg changes C5-C6 and C6-C7 Refer to pain mgmt Trial prednisone taper documented in this encounter [facility] 01-19-2025 Instructions Susan Watson NP - 01/19/2025 1:00 PM EDT Pain mgmt documented in this encounter [facility] 11-19-2024 History of Presen t illness Narrative Associated Problem(s): Neck pain Ice to affected area 4-5 times daily Stretching exercises given Trial baclofen at HS, may try 1/2 pill No NSAID d/t renal function Call office in 2 weeks if not better Seems more muscle relatated Pt is having issues with possible stiff neck on the right side for the last three weeks pt takes tylenol for pain Left eye cataract surgery two days ago and right eye in two weeks Images from the original note were not included. Kel Castillo Jr is a 69 y.o. male presents with chief complaint of Hypertension HPI: Here for a recheck, since last appt has been back to neuropsych, they do feel he does have dementia, however not believed to be alzhiemers From depression/anxiety standpoint he had good days and bad days. Was on olanzapine at 7.5mg weaned down to 5mg and then off. Less drowsiness noted However does have an increase in anxiety: biting nails, fidgety as well Also c.o right sided neck pain: x3 weeks, no known injury, stiffness, no NT or weakness to bilat UE SUBJECTIVE: MEDICATIONS: Current Outpatient Medications Medication Instructions albuterol HFA 90 mcg/act inhaler 2 puffs, Every 4 hours PRN amLODIPine (NORVASC) 5 mg, Oral, Every 12 hours aspirin 81 MG EC tablet 1 tablet, Every morning atorvastatin (LIPITOR) 80 mg, Oral, Nightly baclofen (LIORESAL) 10 mg, Oral, Nightly PRN buPROPion XL (WELLBUTRIN XL) 300 mg, Oral, Every morning, Do not crush, chew, or split. busPIRone (BUSPAR) 15 mg, Oral, 2 times daily clopidogrel (PLAVIX) 75 mg, Oral, Daily famotidine (PEPCID) 20 mg, Oral, 2 times daily fenofibrate micronized (ANTARA) 43 mg, Oral, Daily with breakfast Qocmyysaiyc-Djggtrnfa-Rqlswg (Trelegy Ellipta) 100-62.5-25 MCG/ACT aerosol powder 1 puff, Inhalation, Daily isosorbide mononitrate ER (IMDUR) 60 mg, Oral, Daily, Do not crush or chew. lisinopril 10 mg, Daily RT metoprolol tartrate (LOPRESSOR) 50 mg, Oral, 2 times daily nitroglycerin (NITROSTAT) 0.4 mg, Sublingual, Every 5 min PRN sertraline (ZOLOFT) 200 mg, Oral, Daily traZODone (DESYREL) 100 mg, Oral, Nightly ALLERGIES: No Known Allergies REVIEW OF SYMPTOMS: Review of Systems Constitutional: Negative for activity change, appetite change and unexpected weight change. HENT: Negative for ear pain, nosebleeds, sneezing, trouble swallowing and voice change. Eyes: Negative for pain, discharge and visual disturbance. Respiratory: Negative for apnea, chest tightness and wheezing. Cardiovascular: Negative for leg swelling. Gastrointestinal: Negative for abdominal distention, blood in stool, constipation and diarrhea. Genitourinary: Negative for decreased urine volume, difficulty urinating, dysuria and hematuria. Musculoskeletal: Positive for neck pain. Skin: Negative for color change. Neurological: Negative for dizziness, tremors and seizures. Psychiatric/Behavioral: Positive for confusion. Negative for agitation, decreased concentration, hallucinations, self-injury and suicidal ideas. The patient is nervous/anxious. Depresssion Hematological: Negative for adenopathy. Does not bruise/bleed easily. Endocrine: Negative for cold intolerance, heat intolerance, polydipsia and polyuria. Allergic/Immunologic: Negative for environmental allergies and food allergies. PAST MEDICAL HISTORY Past Medical History: Diagnosis Date Alcoholism ([facility]) ( quit drinking 25 years ago) Anxiety and depression ([facility]) Bronchitis Chicken pox CKD (chronic kidney disease), symptom management only, stage 4 (severe) ([facility]) Claudication of calf muscles ([facility]) COPD (chronic obstructive pulmonary disease) ([facility]) Coronary artery disease ([facility]) Depression with anxiety GERD (gastroesophageal reflux disease) Heart disease High blood pressure ([facility]) High cholesterol ([facility]) History of medical problems Hernia History of migraine headaches History of psychiatric care Kidney disease Lung cancer ([facility]) JITENDRA (obstructive sleep apnea) Peripheral vascular disease ([facility]) Umbilical hernia URTI (infection of the upper respiratory tract) Ventral hernia Past Surgical History: Procedure Laterality Date BYPASS GRAFT triple bypass COLONOSCOPY 07/20/2021 PCL HERNIA REPAIR 09/30/2020 Umbilical and Ventral hernia repair w/ PCLaffay LUNG REMOVAL, PARTIAL with radiation, right family history includes Diabetes in his mother and sister; Heart disease in his mother; Hypertension in his mother. OBJECTIVE: Visit Vitals BP 130/70 (BP Location: Left arm, Patient Position: Sitting, BP Cuff Size: Adult long) Pulse 67 Temp 98.7 F (Temporal) Resp 18 Wt 165 lb 12.8 oz SpO2 96% BMI 25.21 kg/m Smoking Status Former BSA 1.9 m Physical Exam Vitals and nursing note reviewed. Constitutional: Appearance: Normal appearance. HENT: Head: Normocephalic. Right Ear: Tympanic membrane, ear canal and external ear normal. Left Ear: Tympanic membrane, ear canal and external ear normal. Ears: Comments: Cerumen dry flaky left canal Nose: Nose normal. No congestion. Mouth/Throat: Mouth: Mucous membranes are moist. Pharynx: Oropharynx is clear. No oropharyngeal exudate or posterior oropharyngeal erythema. Eyes: Extraocular Movements: Extraocular movements intact. Conjunctiva/sclera: Conjunctivae normal. Cardiovascular: Rate and Rhythm: Normal rate and regular rhythm. Pulses: Normal pulses. Heart sounds: Normal heart sounds. Pulmonary: Effort: Pulmonary effort is normal. Breath sounds: Normal breath sounds. No wheezing or rhonchi. Abdominal: General: Bowel sounds are normal. There is no distension. Palpations: Abdomen is soft. Tenderness: There is no abdominal tenderness. Musculoskeletal: Cervical back: Neck supple. Right lower leg: No edema. Left lower leg: No edema. Comments: Tightness to para cervical region, tendernss to trap Limited flex/ext and rotation to neck d/t pain MMT 5/5 bilat UE, no rash to suggest zoster Lymphadenopathy: Cervical: No cervical adenopathy. Skin: General: Skin is warm and dry. Capillary Refill: Capillary refill takes 2 to 3 seconds. Neurological: General: No focal deficit present. Mental Status: He is alert. Psychiatric: Mood and Affect: Mood normal. Behavior: Behavior normal. Thought Content: Thought content normal. Judgment: Judgment normal. ASSESSMENT AND PLAN: Follow up in about 2 months (around 01/19/2025). Problem List Items Addressed This Visit MCI (mild cognitive impairment) Relevant Orders Ambulatory referral to Speech Therapy Chronic kidney disease, stage 4 (severe) ([facility]) Continue with Nephrology Check labs yearly and prn EDITH (generalized anxiety disorder) ([facility]) Current meds: wellbutrin, buspar, sertraline Pt's daughter is a tita HANGERSMITH, I have given daughter present today options for addressing anxiety: Buspar TID, olanzapine at 2.5mg or quetiapine She will talk with sister and go from there Primary hypertension ([facility]) Please check blood pressure daily and record DASH diet Limit caffeine Take medication as directed Contact office if chest pain, pressure, dizziness, shortness of breath, swelling legs Recommend slow position changes Current meds; raulito, b kelsy, calcium channel kelsy, imdur Functional gait abnormality Relevant Orders Ambulatory referral to Physical Therapy Neck pain - Primary Ice to affected area 4-5 times daily Stretching exercises given Trial baclofen at HS, may try 1/2 pill No NSAID d/t renal function Call office in 2 weeks if not better Seems more muscle relatated Relevant Medications baclofen (Lioresal) 10 MG tablet Associated Problem(s): EDITH (generalized anxiety disorder) ([facility]) Current meds: wellbutrin, buspar, sertraline Pt's daughter is a pysch HANGERSMITH, I have given daughter present today options for addressing anxiety: Buspar TID, olanzapine at 2.5mg or quetiapine She will talk with sister and go from there Associated Problem(s): Chronic kidney disease, stage 4 (severe) (CMS/HCC) Continue with Nephrology Check labs yearly and prn Associated Problem(s): Gastroesophageal reflux disease without esophagitis Recommendations: freq small meals, nothing to eat or drink at least 2 hours prior to bed, limit caffeine, alcohol, as well as spicy foods Meds to limit or avoid if possible: NSAIDS Elevate HOB if possible Current meds: famotidine Associated Problem(s): Primary hypertension (CMS/HCC) Please check blood pressure daily and record DASH diet Limit caffeine Take medication as directed Contact office if chest pain, pressure, dizziness, shortness of breath, swelling legs Recommend slow position changes Current meds; raulito, b kelsy, calcium channel kelsy, imdur Associated Problem(s): Atherosclerosis of arteries of extremities (CMS/HCC) Asa, plavix, statin Associated Problem(s): 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) Established with [facility] Cardiology Current meds: asa, amlodipine, statin, plavix, imdur, raulito, b kelsy, and prn nitro Associated Problem(s): Chronic obstructive pulmonary disease, unspecified Is prescribed trelegy inhaler documented in this encounter [facility] 11-19-2024 Instructions Susan Watson NP - 11/19/2024 1:00 PM EDT Anxiety; we could try increase buspirone to 15mg three times daily Or consider adding olanzapine at 2.5mg at bed time ??low dose of quetiapine like 25mg at bedtime I will order PT and speech therapy at [facility] Neck: try stretching exercises, baclofen 10mg pill at bedtime as needed for muscle spasms documented in this encounter [facility] 10-27-2024 Evaluation note Diagnosis Onset Date Resolution Anemia acute October 27 3:58pm CAD (coronary artery disease) of artery bypass graft acute October 27, 2024 3:58pm Chronic kidney disease, stage 3b acute October 27, 2024 3:58pm Hyperkalemia acute October 27, 2024 3:58pm Hyperlipemia acute October 27, 2024 3:58pm Hypertensive chronic kidney disease with stage 1 through stage 4 chronic ki acute October 27, 2024 3:58pm Anemia acute January 19 4:22pm CAD (coronary artery disease) of artery bypass graft acute January 19, 2025 4:22pm Chronic kidney disease, stage 3b acute January 19, 2025 4:22pm Hyperkalemia acute January 19, 025 4:22pm Hyperlipemia acute January 19 025 4:22pm Hypertensive chronic kidney disease with stage 1 through stage 4 chronic ki acute January 19, 2025 4:22pm [facility] Work Phone: [phone] 608-430303-04-[facility] Chief Complaint: Patient here for 2.5 year follow up CAD and hypertension. No recent cardiac testing. Had lipid panel in Jun 2024. Denies chest pain, and says his ROMAN remains stable. HPI: Kel Castillo is a 69 y.o. male with a history of coronary artery disease, prior coronary artery bypass graft surgery, peripheral arterial disease, COPD, dyslipidemia, movement disorder who has not been seen for 2-1/2 years For the most part, he has been doing well; he denies chest pain, his shortness of breath is stable, he denies palpitations. He does have occasional lightheadedness. He has worsening balance issues and he is being seen by neurology and is going to undergo therapy. No orthopnea, no paroxysmal tunnel dyspnea, no lower extremity edema. He continues to have lower extremity weakness when he walks for a certain period of time. He feels that both legs just give out . He denies actual pain, fatigue, or discomfort in the thighs or calves. He has no nocturnal pain. He has no skin breakdown. Past medical history: Coronary artery disease, history of coronary artery bypass graft surgery Peripheral vascular disease Chronic kidney disease, stage IV Chronic obstructive pulmonary disease Primary hypertension Generalized anxiety disorder Chronic obstructive pulmonary disease Gastroesophageal reflux disease Recurrent major depression Cardiology ROS: Review of Systems Cardiovascular: Positive for dyspnea on exertion. Neurological: Positive for light-headedness and loss of balance. All other systems reviewed and are negative. Past Medical History He has no past medical history on file. Surgical History He has no past surgical history on file. Social History He has no history on file for tobacco use, alcohol use, and drug use. Family History No family history on file. Allergies Patient has no allergy information on record. Medications No current outpatient medications on file. Last Recorded Vitals BP 130/74 (BP Location: Left arm, Patient Position: Sitting) Pulse 56 Ht 1.676 m (5' 6 ) Wt 77.1 kg (170 lb) SpO2 95% BMI 27.44 kg/m??? Physical Examination: GENERAL: alert and oriented x3, well developed, in no acute distress. HEAD: atraumatic, normocephalic. EYES: LAYNE, EOMI. NECK: trachea midline, no JVD present, no carotid bruits present. CARDIAC: S1, S2 present. RRR. No murmur, rubs, or gallops. RESPIRATORY: CTAB, no increased effort of breathing, no rales, rhonchi, or wheezing. ABDOMEN: soft, nontender, nondistended. EXTREMITIES: no lower extremity edema, peripheral pulses are 2+ bilaterally. No rash/skin discoloration present. NEURO: strength/sensation equal and symmetric in bilateral upper and lower extremities. PSYCH: appropriate mood, affect, and judgement. INVESTIGATIONS: LE Angiogram 2012 Final Impressions: 1. No significant stenosis or aneurysms of the infrarenal abdominal aorta. 2. Mild peripheral arterial disease of the lower extremities. 3. Three-vessel runoff bilaterally. 10/07/13 Cardiovascular Laboratory Report FINAL IMPRESSIONS: 1. Unsuccessful attempt at percutaneous revascularization of a chronic, subtotally occluded right coronary artery. 2. Severe 3-vessel wales coronary artery disease. 3. Patent left internal mammary artery graft to the left anterior descending. 4. Patent radial artery graft to the obtuse marginal. 5. Occluded saphenous vein graft to the posterior descending artery Echo 2013 The left ventricle is normal in size and septal wall thickness is mildly increased. 0060 Global left ventricular systolic function is at lower normal limits. Estimated ejection fraction is 50-55%. 0061 The anterior wall is mildly hypokinetic. 0062 The inferoseptal wall is abnormal in its motion. This is not an unusual finding in the post open heart patient. 0063 Mild diastolic dysfunction is seen by Doppler echo. 0064 The left atrium is mildly enlarged. 0065 The right atrium is normal in size. 0066 The right ventricle is normal in size and systolic function. Doppler studies suggest mildly elevated right-sided pressures. 0067 The tricuspid valve is normal in mobility and thickness, trivial regurgitation is noted. 0068 The mitral valve is normal in mobility and thickness, trivial regurgitation noted. 0069 The aortic valve is normal, no regurgitation is noted. 0070 The aortic root is normal in size. 0071 The pulmonic valve is normal, trivial regurgitation is noted. 0072 No pericardial effusion is seen. CVL report 10/07/2019 Cardiovascular Laboratory Report FINAL IMPRESSIONS: 1. Severe 3-vessel wales coronary artery disease. 2. A 2/3 bypass grafts patent; the radial artery graft to the posterior descending artery is occluded. 3. Severe, heavily calcific lesion of the right common femoral artery; this is a new angiographic finding. Assessment: Coronary a (more content not included)...[facility] 10-12-2024 Instructions* Patient Instructions* Ebony Trent, - 10/12/2024 11:31 AM EST Please do physical therapy and speech therapy. Please follow-up with your sleep apnea doctor about a better mask as this can help memory. Follow-up in six months. He and his family may benefit from the following community resources: [facility] Agencies on Aging -- , https://aging.[place].gov/about-us/who-we-are/jmed-ofxmdnwd-up-aging Visit your local Senior Center to participate in stimulating activities and socialize with others -https://www.care[place].org/zbmt65_kwdf_ltmjvo_hpqyqhw.htm He can use strategies to help optimize thinking and help him feel on top of things at home: Keep a notebook, smart phone, or small voice recorder for recording to-do items, important notes, upcoming appointments, etc. This should be kept readily accessible all of the time. Keep frequently used items together, and keep them in their own location at home (a memory place ) Repeat where you are placing something, remind yourself of something you need to do, someone's name, etc. Repeat the information at least 5 times to reinforce it. Avoid multi-tasking, such has watching TV and having a conversation at the same time. Multi-taskingwill make it more difficult to take in the information and encode it for later reference. Be mindful when doing tasks you tend to forget (such as saying, I am locking the front door now when leaving home) Set timers in the kitchen or around the house as needed (such as when you are doing chores) Place sticky notes in visible spots around the house may serve as useful reminders for various tasks, such as checking the calendar for appointments. Use a dry erase board to list daily tasks. Items should be checked off following completion. In order to help him maintain his skills, he is encouraged to remain as physically, mentally, and socially active as possible, as this may be protective of brain and cardiovascular health. Check out these books: Keep Your Wits About You: The Science of Brain Maintenance as You Age, by Dr. Yenni Mckeon Keep Sharp: Build a Better Brain at Any Age by Dr. Rodney Noe The 36-Hour Day: A Family Guide to Caring for People Who Have Alzheimer Disease and Other Dementiasby Mariela Starkey & Dr. Oscar Roberts Visit https://healthybrains.org/ to get more information about how to promote good brain health Get plenty of sleep on a regular basis Stay hydrated by drinking plenty of water Stop smoking (let your providers know if you need help to quit) With your primary care provider s permission, you are encouraged to engage in aerobic physical exercises such as biking, walking, or swimming for a minimum of 30-40 minutes at a time, at least 3 daysper week; the goal is to do at least 150 minutes per week. A strength-training component should also be included. Yoga or other mind-body techniques can also be helpful as exercise and stress relief. You should strive to have an intellectually and socially engaged life. Intellectual activities including reading, solving crossword puzzles, gardening, playing cards/board games are encouraged. You could also consider auditing courses at your local college/university ortaking classes to learn something new. Social activities include talking to friends and family, attending activities together, or engagingin community activities. A diet that includes regular intake of the high antioxidant foods, omega-3 fatty acids, quan (including cinnamon, turmeric, and grace), and more generally, the Mediterranean-DASH Intervention for Neurodegenerative Delay (MIND) diet, is recommended. 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 Re-evaluation in approximately 18-24 months (or as needed). [facility] NoteHNO ID: [id number] Author: EBONY TRENT DO Service: ? Author Type: Physician Type: Progress Notes Filed: 10/12/2024 14:47 Note Text: [facility] Follow up/ Established patient visit Individuals who were included in, or assisted with the encounter were: Samir Castillo Ebony Black DO Chief Complaint/Issues: Samir Castillo is a 69 year old male seen in the [facility] for: Memory loss Most Recent Neurological Assessment and Plan: Last Filed Values Date of Most Recent Assessment and Plan 05/04/24 Specialty General Neurology Assessment Mr. Castillo is a 69 year old man with prior MCI on neuropsych previously described as largely due to depression and untreated sleep apnea. Memory worse since the last two years since the test was last done. Also some new gait imbalance of unclear etiology. Plan CT brain PT Encouraged to talk to prescriber of CPAP for additional mask options Neuropsych re-referral Follow-up after neuropsych testing HPI/Interval History: Here for follow-up to go over neurpsych results. He is accompanied by two daughters. The following is the summary of his neuropsych test results: Taken together, at this time there are significant cognitive deficits present on the exam today which are deemed to be a change from his baseline, and these difficulties are interfering with independent daily functioning. Therefore, he meets criteria for Major Neurocognitive Disorder (i.e., dementia). However, the cognitive profile reveals largely globally depressed scores, perhaps with worse performances on measures of frontal-systems (most notably processing speed and language) and non-dominant parietal functions. At this time, the cause of this dysfunction is not fully clear. There is likely some contribution from cerebrovascular change and other medical factors such as suboptimal kidney function and untreated JITENDRA. It is also suspected that, to perhaps a lesser extent, possible medication side effects and emotional distress are also contributory. These factors are seen in the context of suspected baseline academic weaknesses based on his reported developmental history. While the possibility of a neurodegenerative disease cannot be ruled out, the improvement in list memory recognition could argue against a classic Alzheimer's disease. A more frontally-mediated neurodegenerative disease is also possible, but there are limited reported changes in behavior or personality, which may make this less likely. There are also some reported motor and sensory symptoms that are currently of unclear significance with respect to cognitive changes. Continued monitoring will be helpful to track changes across time and help clarify differential. He notes balance off somewhat. He has had some falls since he was here in April. Has Improved some lately. He had some lightheadedness when the sun hit him after 1.[address] is here. He gets lightheaded lately frequently. He drinks 3 bottles of water daily. He does not drink alcohol. Denies hallucinations. He has some depression, on Wellbutrin, Zoloft, buspar, Trazodone. He is off olanzapine For the last three weeks he is more awake, less tremor. He still has not found a sleep apnea mask that he likes. He may have some tremors writing a list. Holding a coffee cup can be an issues. Tremor is with rest also. He is not driving. He gets family members out of context. He may forget what he was talking about mid conversation. No current hallucinations. Cooking is fine. Headaches every other day Tylenol helps. Taking more than 3 a week. He thinks he had headaches when his CT brain was done before. NESBITT's more frequent now. General Examination: Wt 77.1 kg (169 lb 15.6 oz) BMI 27.43 kg/m? General: Awake, alert, interactive, no acute distress, good nutritional status, normal development, well-kept Skin: Rash: absent Pigmentation: absent HEENT: Head: normocephalic, no dysmorphism Eyes: normal Oropharynx: normal Extremities: Edema: absent Trophic change: absent Heart: RRR, no cyanosis Lungs: Chest rise symmetrical Neurological Exam Mental Status Alert, no dysarthria Cranial Nerves Visual wilson intact. Fundi with normal discs and vasculature. Pupils reactive. Extraocular movements conjugate and full. No ptosis. No nystagmus. Facial sensation intact. Face symmetric and strong. Palate and tongue normal. XI normal. Motor Examination and Coordination Motor examination with normal bulk, strength and tone. No drift. Normal rapid alternating movements and coordination. No adventitious movements or significant tremor. Gait Not tested, in wheelchair from lightheadedness Assessment AND Plan 10/12/2024 - General Neurology, Ebony Black DO ASSESSMENT Mr. Jaramillo, is a 69 year old man with untreated sleep apnea here for follow-up of (more content not included)...[facility]03-03-2025 History of Present illness Narrative* Ebony Trent DO - 10/12/2024 11:28 AM EST Images from the original note were not included. [facility] General Neurology Follow up/ Established patient visit Individuals who were included in, or assisted with the encounter were: Samir Castillo Ebony Black DO Chief Complaint/Issues: Samir Castillo is a 69 year old male seen in the [facility] for General Neurology for: Memory loss Most Recent Neurological Assessment and Plan: Last Filed Values Date of Most Recent Assessment and Plan 05/04/24 Specialty General Neurology Assessment Mr. Castillo is a 69 year old man with prior MCI on neuropsych previously described as largely due to depression and untreated sleep apnea. Memory worse since the last two years since the test was last done. Also some new gait imbalance of unclear etiology. Plan CT brain PT Encouraged to talk to prescriber of CPAP for additional mask options Neuropsych re-referral Follow-up after neuropsych testing HPI/Interval History: Here for follow-up to go over neurpsych results. He is accompanied by two daughters. The following is the summary of his neuropsych test results: Taken together, at this time there are significant cognitive deficits present on the exam today which are deemed to be a change from his baseline, and these difficulties are interfering with independent daily functioning. Therefore, he meets criteria for Major Neurocognitive Disorder (i.e., dementia). However, the cognitive profile reveals largely globally depressed scores, perhaps with worse performances on measures of frontal-systems (most notably processing speed and language) and non-dominant parietal functions. At this time, the cause of this dysfunction is not fully clear. There is likely some contribution from cerebrovascular change and other medical factors such as suboptimal kidney function and untreated JITENDRA. It is also suspected that, to perhaps a lesser extent, possible medication side effects and emotional distress are also contributory. These factors are seen in the context of suspected baseline academic weaknesses based on his reported developmental history. While the po ssibility of a neurodegenerative disease cannot be ruled out, the improvement in list memory recognition could argue against a classic Alzheimer's disease. A more frontally-mediated neurodegenerativedisease is also possible, but there are limited reported changes in behavior or personality, which may make this less likely. There are also some reported motor and sensory symptoms that are currently of unclear significance with respect to cognitive changes. Continued monitoring will be helpful totrack changes across time and help clarify differential. He notes balance off somewhat. He has had some falls since he was here in April. Has Improved some lately. He had some lightheadedness when the sun hit him after 1.[address] is here[address] He gets lightheaded lately frequently. He drinks 3 bottles of water daily. He does not drink alcohol. Denies hallucinations. He has some depression, on Wellbutrin, Zoloft, buspar, Trazodone. He is off olanzapine For the last three weeks he is more awake, less tremor. He still has not found a sleep apnea mask that he likes. He may have some tremors writing a list. Holding a coffee cup can be an issues. Tremor is with rest also. He is not driving. He gets family members out of context. He may forget what he was talking about mid conversation. No current hallucinations. Cooking is fine. Headaches every other day Tylenol helps. Taking more than 3 a week. He thinks he had headaches when his CT brain was done before. NESBITT's more frequent now. General Examination: Wt 77.1 kg (169 lb 15.6 oz) BMI 27.43 kg/m General: Awake, alert, interactive, no acute distress, good nutritional status, normal development,well-kept Skin: Rash: absent Pigmentation: absent HEENT: Head: normocephalic, no dysmorphism Eyes: normal Oropharynx: normal Extremities: Edema: absent Trophic change: absent Heart: RRR, no cyanosis Lungs: Chest rise symmetrical Neurological Exam Mental Status Alert, no dysarthria Cranial Nerves Visual wilson intact. Fundi with normal discs and vasculature. Pupils reactive. Extraocular movements conjugate and full. No ptosis. No nystagmus. Facial sensation intact. Face symmetric and strong. Palate and tongue normal. XI normal. Motor Examination and Coordination Motor examination with normal bulk, strength and tone. No drift. Normal rapid alternating movementsand coordination. No adventitious movements or significant tremor. Gait Not tested, in wheelchair from lightheadedness Assessment & Plan 10/12/2024 - General Neurology, Ebony Black, DO ASSESSMENT Mr. Jaramillo, is a 69 year old man with untreated sleep apnea here for follow-up of memory loss. This was worse on repeat neuropsych testing, dementia range but no clear pattern for type. Also sleep apnea is contributing factor. Also reports headaches, may be a component of tension NESBITT and rebound NESBITT from Tylenol overuse. PLAN Speech and physical therapy Told to let me know if neck PT does not help the headaches. Told to wean Tylenol. PT also for balance Follow-up in 6 months No diagnosis found. No follow-ups on file. Data Review Objective Current Outpatient Medications Medication Sig traZODone (DESYREL) 100 mg tablet Take 100 mg by mouth daily at bedtime. albuterol HFA (PROVENTIL HFA, VENTOLIN HFA) 90 mcg/actuation inhaler albuterol sulfate HFA 90 mcg/actuation aerosol inhaler INHALE 1 PUFF BY MOUTH EVERY 4 HOURS NEEDED (Patient not taking: Reported on 05/04/2024) albuterol HFA (PROVENTIL HFA, VENTOLIN HFA) 90 mcg/actuation inhaler INHALE 1 PUFF BY MOUTH EVERY 4HOURS NEEDED (Patient not taking: Reported on 05/04/2024) amLODIPine (NORVASC) 5 mg tablet amlodipine 5 [...] AND 1/2 TABLETS BY MOUTH EVERY DAY omega 2-xmz-cnv-fish oil (FISH OIL) 100-160-1,000 mg cap Take by mouth. No current facility-administered medications for this visit. [...] reviewed and are negative. Subjective Patient-Entered Data: 10/12/24 - GENERAL NEUROLOGY SCORES 02/18/2023 05/04/2024 10/12/2024 PROMIS 10 Health, in general Poor Fair Fair Quality of life, in general Fair Fair Fair Physical health, in general Poor Poor Poor Mental health, in general Poor Poor Poor Social activities satisfaction Poor Poor Poor Performing ADL's A little Not at all A little Social role satisfaction Fair Poor Poor Pain, on average 7 6 8 Fatigue, on average Very severe Very severe Severe Emotional problems Always Always Sometimes PHYSICAL Score 23.5 (Poor) 23.5 (Poor) 26.7 (Poor) MENTAL Score 25.1 (Poor) 25.1 (Poor) 31.3 (Fair) 05/04/2024 05/04/2024 10/12/2024 Depression Screening PHQ-2 Score 6 PHQ-9 Score 23 EDITH-2 Total Score 6 2 EDITH-7 Total Score 19 3 12/22/2021 08/08/2022 10/11/2024 SLEEP APNEA SCORE Probability of moderate-severe sleep apnea (%) SAPS V2 23.61 (Sleep study not recommended) 72 (Recommend sleep study) 70 (Recommend sleep study) 04/10/2022 AVERAGE SLEEP 24 HOURS Average sleep last 24 hrs 9 12/21/2021 PROMIS CAT Sleep Disturbance PROMIS Sleep Disturbance T-Score 78 (severe) I spent a total of 30 minutes on the date of the service which included preparing to see the patient, [id number] patient care, completing clinical documentation, obtaining and/or reviewing separately obtained history, performing a medically appropriate examination, counseling and educating the pat ient/family/caregiver, and ordering medications, tests, or procedures. Ebony Black DO 10/12/2024 PROMIS Global Health Physical Health Summary Physical health: Poor Everyday physical activity, ability: A little Fatigue: Severe Pain level: 8 General health: Fair Social activities/roles, ability: Poor Physical Health T-Score 26.7 (Poor) Physical Health Percentile 1 PROMIS Global Health Mental Health Summary Quality of life: Fair Mental health (mood,thinking): Poor Social satisfaction: Poor Emotional problems (anxious,depressed): Sometimes Mental Health T-Score 31.3 (Fair) Mental Health Percentile 3 EDITH-7 Score: 3(Minimal Anxiety) NEURO-QOL Cognitive Function T-Score 37(Moderate Dysfunction) PROMIS Physical Function T-Score 31(Moderate Dysfunction) PROMIS Physical Function Percentile 3 PROMIS Pain Interference T-Score 66(Moderate) PROMIS Pain Interference Percentile 5 Percentiles provide an indication of how a patient's score ranks in relation to the [place] general population. > 31st percentile is within normal limits or better *< 31st percentile is at least SD worse than population, which may be clinically relevant < 16th percentile is at least 1 SD worse than population and warrants attention 10/11/2024 Sleep Apnea Probability Snores loudly: No Tired, fatigued or sleepy in daytime: Yes Stops breathing or choking/gasping during sleep: Yes High blood pressure: Yes Sleep Apnea Probability Score: 70 (Recommend sleep study) * Sandra Jay MA - 10/12/2024 11:21 AM EST 10/12/2024 PROMIS Global Health Physical Health Summary Physical health: Poor Everyday physical activity, ability: A little Fatigue: Severe Pain level: 8 General health: Fair Social activities/roles, ability: Poor Physical Health T-Score 26.7 (Poor) Physical Health Percentile 1 PROMIS Global Health Mental Health Summary Quality of life: Fair Mental health (mood,thinking): Poor Social satisfaction: Poor Emotional problems (anxious,depressed): Sometimes Mental Health T-Score 31.3 (Fair) Mental Health Percentile 3 PROMIS Physical Function T-Score 31(Moderate Dysfunction) PROMIS Physical Function Percentile 3 Percentiles provide an indication of how a patient's score ranks in relation to the [place] general population. > 31st percentile is within normal limits or better *< 31st percentile is at least SD worse than population, which may be clinically relevant < 16th percentile is at least 1 SD worse than population and warrants attention 10/11/2024 Sleep Apnea Probability Snores loudly: No Tired, fatigued or sleepy in daytime: Yes Stops breathing or choking/gasping during sleep: Yes High blood pressure: Yes Sleep Apnea Probability Score: 70 (Recommend sleep study) [facility] NoteHNO ID: [id number] Author: SANDRA JAY MA Service: ? Author Type: Grinder Set Up Operator Centerless Type: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 bothfrontal-executive and mesial temporal dysfunction. The precise etiology is challenging to determinewith certainty, though multiple factors are suspected. It may be that his clinically significant depression and anxiety symptoms are severely negatively impacting his cognitive and functional abilities, as he appeared to give up somewhat easily throughout aspects of today's evaluation; chronic psych iatric concerns also increase the risk of neurologically-based neurocognitive dysfunction. Additionally, some aspects of these results may reflect longstanding weaknesses per his developmental and educational history. However, there remains possibility of a neurodegenerative process, given the severe generalized volume loss described on neuroimaging in addition to impairments in expressive language and memory and family report of a progressive course of symptoms. ACCURACY OF TEST RESULTS: Engagement: Objective measures of task engagement are within expectation. The patient appeared to put forth adequate motivation and persistence on all tasks. Validity: Profile accurately reflects current neurocognitive functioning. RESULTS: Objective Cognitive Measures: Premorbid Estimate Attention & Speed Executive Functions Language Visuospatial Memory: LearningMemory: Recall Memory: Recognition Exceptionally High Superior High Average Average X X W Low Average X* X X X X F F Below Average X X X S Exceptionally Low X X X X W, F, S W S This table should not be presented separate from the Neuropsychological Evaluation Report dated 09/08/2024. Note: -*obtained in prior evaluation -W = word list, S = stories, F = figures -Performances in the shaded region fall below expectation based on normative comparison for age andsex; some tests also provide comparison based on education. Face-Valid Self-Report Measures: Depression Anxiety WNL/ Minimal Mild X Moderate Severe X This table should not be presented separate from the Neuropsychological Evaluation Report dated 09/08/2024. Note: -WNL = within normal limits -Scores in the shaded areas are higher than expectation. SUMMARY AND IMPRESSIONS: Mr. Castillo is a 69 year old, /Multicultural man with 10 years of formal education who was referred for a neuropsychological re-evaluation due to concerns about cognition seen in the context of a history of JITENDRA and established Mild Neurocognitive Disorder. He presented today for evaluation of reported ongoing decline in cognition since the time of his last evaluation, approximately 1.5 years ago. Cognitively, results of the current evaluation revealed performance that fell below expectation on most cognitive tests administered today. Notable findings included performance on measuresof memory, where new learning was below expectation and with a shallow learning curve. Recall fell below expectation but was not in a consistent amnestic pattern. For instance, on a list memory test,new learning was shallow and recall was zero, but he benefited from cues on recognition testing. Tracie non-verbal memory test, new learning was similarly shallow but he retained all that he learned and also benefited from cues on recognition testing. The added structure on a story memory test did not yield a stronger performance overall. Processing speed was significantly slowed across multiple measures, suggesting that this weakness likely influenced his performance on other tests. Performance on naming and verbal fluency to both letters and categories all fell below expectation, but comprehension fell within expectation and he was able to fluently tell a story when prompted with a picture.There were also low performances on measures of visuospatial skill; his copy of a complex figure was piecemeal and disjointed, and additionally did not approximate the target figure. He also performed well below expectation on a measure of motor-free visual organization that was not timed. However,not all performances on tasks with a strong visual component fell below expectation; non-verbal reasoning (untimed) and angle estimation (also untimed) were intact. Emotionally, his responses on these measures were suggestive of clinically significant symptoms of depression (severe) and anxiety (mild). Additionally, during the clinical interview he described having good and bad days with respect to feeling down and anxious. Comparison to his 2021 evaluation revealed a few clear declines in combination with some mostly stable or even improved performances. The clear declines were observed on measures of processing speed,increased errors on an inhibition task, verbal fluency to letters, and copy of a complex figure. Onthe whole, performance on measures of memory was somewhat stable, but notably his benefit from cueson a list memory test significantly improved to within expected limits. Additional improvement was noted on a measure of confrontation naming and non- verbal reasoning. Report of emotional distress was similar across exams, with an improvement in anxiety in the current evaluation. Taken together, at this time there are significant cognitive deficits present on the exam today which are deemed to be a change from his baseline, and these difficulties are interfering with independent daily functioning. Therefore, he meets criteria for Major Neurocognitive Disorder (i.e., dementia). However, the cognitive profile reveals largely globally depressed scores, perhaps with worse performances on measures of frontal-systems (most notably processing speed and language) and non-dominant parietal functions. At this time, the cause of this dysfunction is not fully clear. There is likely some contribution from cerebrovascular change and other medical factors such as suboptimal kidney function and untreated JITENDRA. It is also suspected that, to perhaps a lesser extent, possible medication side effects and emotional distress are also contributory. These factors are seen in the contextof suspected baseline academic weaknesses based on his reported developmental history. While the pos sibility of a neurodegenerative disease cannot be ruled out, the improvement in list memory recognition could argue against a classic Alzheimer's disease. A more frontally-mediated neurodegenerative disease is also possible, but there are limited reported changes in behavior or personality, which may make this less likely. There are also some reported motor and sensory symptoms that are currentlyof unclear significance with respect to cognitive changes. Continued monitoring will be helpful to track changes across time and help clarify differential. RECOMMENDATIONS: If deemed medically appropriate, consider: Review of medications to determine if the risk for anticholinergic burden can be reduced Referral to Speech Therapy to develop compensatory strategies that will help him manage day-to-day cognitive symptoms. Referral to Occupational Therapy for an evaluation of day-to-day functional skills, to identify areas for possible intervention Given the severity of the difficulty with visual and speeded mental multitasking skills, I am concerned about his driving ability and he should continue to refrain from driving. He will benefit from continued treatment of his psychiatric symptoms. He is encouraged to continue working with his established providers and to follow their recommendations regarding treatment or treatment changes. Continued aggressive management of his cerebrovascular risk factors is recommended to help prevent a future stroke and minimize future cognitive decline. He is encouraged to follow his physician s recommendations for diet, exercise, managing his heart health, and medication administration. He and his family may benefit from the following community resources: [facility] Agencies on Aging -- , https://aging.[place].gov/about-us/who-we-are/nila-qnrmubru-rt-aging Visit your local [facility] to participate in stimulating activities and socialize with others -https://www.[employer].org/pdns17_eryv_lmlezi_vzrhpoz.htm He can use strategies to help optimize thinking and help him feel on top of things at home: Keep a notebook, smart phone, or small voice recorder for recording to-do items, important notes, upcoming appointments, etc. This should be kept readily accessible all of the time. Keep frequently used items together, and keep them in their own location at home (a memory place ) Repeat where you are placing something, remind yourself of something you need to do, someone's name, etc. Repeat the information at least 5 times to reinforce it. Avoid multi-tasking, such has watching TV and having a conversation at the same time. Multi-taskingwill make it more difficult to take in the information and encode it for later reference. Be mindful when doing tasks you tend to forget (such as saying, I am locking the front door now when leaving home) Set timers in the kitchen or around the house as needed (such as when you are doing chores) Place sticky notes in visible spots around the house may serve as useful reminders for various tasks, such as checking the calendar for appointments. Use a dry erase board to list daily tasks. Items should be checked off following completion. In order to help him maintain his skills, he is encouraged to remain as physically, mentally, and socially active as possible, as this may be protective of brain and cardiovascular health. Check out these books: Keep Your Wits About You: The Science of Brain Maintenance as You Age, by Dr. Yenni Mckeon Keep Sharp: Build a Better Brain at Any Age by Dr. Rodney Noe The 36-Hour Day: A Family Guide to Caring for People Who Have Alzheimer Disease and Other Dementiasby Mariela Starkey & Dr. Oscar Roberts Visit https://healthybrains.org/ to get more information about how to promote good brain health Get plenty of sleep on a regular basis Stay hydrated by drinking plenty of water Stop smoking (let your providers know if you need help to quit) With your primary care provider s permission, you are encouraged to engage in aerobic physical exercises such as biking, walking, or swimming for a minimum of 30-40 minutes at a time, at least 3 daysper week; the goal is to do at least 150 minutes per week. A strength-training component should also be included. Yoga or other mind-body techniques can also be helpful as exercise and stress relief. You should strive to have an intellectually and socially engaged life. Intellectual activities including reading, solving crossword puzzles, gardening, playing cards/board games are encouraged. You could also consider auditing courses at your local college/university ortaking classes to learn something new. Social activities include talking to friends and family, attending activities together, or engagingin community activities. A diet that includes regular intake of the high antioxidant foods, omega-3 fatty acids, quan (including cinnamon, turmeric, and grace), and more generally, the Mediterranean-DASH Intervention for Neurodegenerative Delay (MIND) diet, is recommended. 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 Re-evaluation in approximately 18-24 months (or as needed). These results have not been reviewed with the patient, but he will be provided access to this note via [employer]. It has been a pleasure to participate in his care. Please feel free to contact me if you have any questions regarding this report or my recommendations. Misty Polo, PhD, ABPP-CN Board Certified Clinical Neuropsychologist [facility] [place] The purpose of this evaluation was explained to the patient at the outset of the appointment, including use of information obtained, limits to confidentiality, and voluntary nature of this visit. Thepatient expressed understanding and provided verbal consent to proceed. This report shall not be official until it has been signed by the staff psychologist. The signature certifies that the staff psychologist has personally reviewed the medical records and designed a specific neuropsychological test battery to evaluate the patient's cognitive ability. The interpretation included in this report is derived from direct supervision of testing and a review of the test data. The current evaluation was performed in the context of medical care and a clinical referral question and not for the purposeof a forensic, disability, or workers' compensation evaluation. Given the targeted nature of the referral, details of the patient s history, which are already known to the referral source, are only briefly summarized. Please see patient medical records for more detailed information. Neurobehavioral status exam/clinical interview by neuropsychologist = 1 hour Neuropsychological evaluation services by neuropsychologist = 2 hours Neuropsychological test administration/scoring by repossession agent = 4 hours TESTS ADMINISTERED: Waite Anxiety Inventory, Waite Depression Inventory-2, Mas Judgment of Line Orientation (Form H), [place] Naming Test-2, Brief Visuospatial Memory Test- Revised (Form 2), Clinical Interview, Jessie Chowdhury Executive Function System (Color-Word Interference), Castro Verbal Learning Test-Revised (Form 2), Language Screen, Performance Validity Testing, Gregory Osterrieth Complex Figure Test (Miles System, copy), [place] Making Test (Parts A & B), Verbal Fluency (CFL, Animals/Fruits/Vegetables), Veena Adult Intelligence Scale-IV (Digit Span, Coding, Matrix Reasoning), Veena Memory Scale-IV (Logical Memory), [place] Card Sorting Test - 128 documented in this encounterMadison Health11-11-2024 History of Present illness Narrative* Jayy Coronado, HANGERSMITH - 06/22/2024 11:34 AM ESTAssociated Problem(s): Functional gait abnormality Dizziness/Lightheadedness with ambulation. Reports this does NOT occur at rest. Has had multiple falls this week; Reports he has hit head in the past but denies hitting head this past week. Denies loss of consciousness with falls. Has reported this to neurology- neurology recommended physical therapy; Does not believe it is a neurological issue, but more of a balance issue. CT scan head Negative. Recommended PT referral. Pt has had difficulty getting through to [facility]. Will send referral today. * Jayy Coronado NP - 06/22/2024 11:33 AM ESTAssociated Problem(s): CKD (chronic kidney disease) stage 4, GFR 15-29 ml/min (CMS/HCC) Following with Nephrology. Avoid nephrotoxic agents. Continue to monitor. * Jayy Coronado NP - 06/22/2024 11:33 AM ESTAssociated Problem(s): Other hyperlipidemia (CMS/HCC) Currently taking Atorvastatin 80mg Denies any myalgias. Continue current regimen. * Jayy Coronado NP - 06/22/2024 11:33 AM ESTAssociated Problem(s): Primary hypertension (CMS/HCC) Currently taking amlodipine Imdur Metoprolol Checks BP at home; Averages are 130's/70's. Denies orthostatic changes, dizziness, cough, shortness of breath, swelling in extremities. Continue current regimen. Given BP log, advised pt to record BP and bring log back with them to next visit. KAH * Jayy Coronado NP - 06/17/2024 1:00 PM EST Images from the original note were not included. Subjective Patient ID: Kel Castillo Jr is a 69 y.o. male who presents for No chief complaint on file.. HPI Specialists: Cardiology: Dr. Roque Nephrology- Dr. Toscano Neurology- Dr. Kaufman Used to see psychiatry- does not any longer. HTN: Currently taking amlodipine Imdur Metoprolol Checks BP at home; Averages are 130's/70's. Denies orthostatic changes, dizziness, cough, shortness of breath, swelling in extremities. Continue current regimen. Given BP log, advised pt to record BP and bring log back with them to next visit. HLD: Currently taking Atorvastatin 80mg Denies any myalgias. Continue current regimen. CKD: Following with Nephrology Dizziness/Lightheadedness with ambulation. Reports this does NOT occur at rest. Has had multiple falls this week; Reports he has hit head in the past but denies hitting head this past week. Denies loss of consciousness with falls. Has reported this to neurology- neurology recommended physical therapy; Does not believe it is a neurological issue, but more of a balance issue. CT scan head Negative. Recommended PT referral. Pt has had difficulty getting through to [facility]. Will send referral today. Ongoing confusion, tremors; Is concerned is related to medicaitons- specifically olanzapine. Is scheduled to see Neuropsych in August for formal evaluation. Review of Systems Constitutional: Negative for activity change, appetite change, chills, diaphoresis, fatigue, fever and unexpected weight change. HENT: Negative for congestion, ear pain, rhinorrhea, sinus pressure, sinus pain, sneezing, sore throat, trouble swallowing and voice change. Eyes: Negative for visual disturbance. Respiratory: Negative for cough, chest tightness, shortness of breath and wheezing. Cardiovascular: Negative for chest pain, palpitations and leg swelling. Gastrointestinal: Negative for abdominal distention, abdominal pain, blood in stool, constipation, diarrhea and vomiting. Genitourinary: Negative for decreased urine volume, dysuria, flank pain, frequency, hematuria and urgency. Musculoskeletal: Negative for arthralgias, gait problem, joint swelling and myalgias. Skin: Negative for rash. Neurological: Positive for tremors and light-headedness. Negative for dizziness, syncope, weakness and headaches. Psychiatric/Behavioral: Positive for confusion. Negative for decreased concentration and suicidal ideas. The patient is not nervous/anxious. Hematological: Does not bruise/bleed easily. Endocrine: Negative for cold intolerance, heat intolerance, polydipsia, polyphagia and polyuria. Objective Physical Exam Vitals reviewed. Constitutional: Appearance: Normal appearance. HENT: Head: Normocephalic and atraumatic. Right Ear: Tympanic membrane normal. Left Ear: Tympanic membrane normal. Nose: Nose normal. Mouth/Throat: Mouth: Mucous membranes are moist. Pharynx: Oropharynx is clear. Eyes: Pupils: Pupils are equal, round, and reactive to light. Cardiovascular: Rate and Rhythm: Normal rate and regular rhythm. Pulses: Normal pulses. Heart sounds: Normal heart sounds. Pulmonary: Effort: Pulmonary effort is normal. Breath sounds: Normal breath sounds. Abdominal: General: Abdomen is flat. Bowel sounds are normal. Palpations: Abdomen is soft. Musculoskeletal: General: Normal range of motion. Cervical back: Normal range of motion. Skin: General: Skin is warm and dry. Capillary Refill: Capillary refill takes less than 2 seconds. Neurological: General: No focal deficit present. Mental Status: He is alert and oriented to person, place, and time. Gait: Gait abnormal. Psychiatric: Mood and Affect: Mood normal. Behavior: Behavior normal. 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 Continue current regimen. CKD (chronic kidney disease) stage 4, GFR 15-29 ml/min ([facility]) Following with Nephrology. Avoid nephrotoxic agents. Continue to monitor. Primary hypertension (CMS/HCC) - Primary Currently taking amlodipine Imdur Metoprolol Checks BP at home; Averages are 130's/70's. Denies orthostatic changes, dizziness, cough, shortness of breath, swelling in extremities. Continue current regimen. Given BP log, advised pt to record BP and bring log back with them to next visit. Relevant Orders CBC and differential Lipid panel Comprehensive metabolic panel Frequent falls Relevant Orders Ambulatory referral to Physical Therapy Functional gait abnormality Dizziness/Lightheadedness with ambulation. Reports this does NOT occur at rest. Has had multiple falls this week; Reports he has hit head in the past but denies hitting head this past week. Denies loss of consciousness with falls. Has reported this to neurology- neurology recommended physical therapy; Does not believe it is a neurological issue, but more of a balance issue. CT scan head Negative. Recommended PT referral. Pt has had difficulty getting through to [facility]. Will send referral today. Relevant Orders Ambulatory referral to Physical Therapy documented in this [facility]11-06-2024 Instructions* Patient Instructions* Jayy Coronado NP - 06/17/2024 1:00 PM EST FASTING labs ordered. Nothing to eat or drink for 12 hours prior to blood draw. Water and black coffee ok. Referral sent to Physical therapy- they will call you. If you don't hear from them in 2 weeks, call my office! If you have a fall, Especially if you hit your head, YOU MUST GO TO THE EMERGENCY ROOM!!! documented in this [facility]10-01-2024 History of Present illness Narrative* Claire Vilchis CT - 05/12/2024 7:45 AM EDT Radiology Service Progress Note PATIENT NAME: Samir Castillo DATE OF SERVICE: May 12, 2024 TIME: 8:35 AM PATIENT IDENTITY VERIFICATION COMPLETED USING TWO (2) IDENTIFIERS: Name and Date of confirmedby patient verbally and Name and Date of confirmed by identification band. FALL SCREENING: Has the patient had 2 falls in the last year or 1 fall with injury or currently using an Ambulatory Assistive Device (Walker, Cane, Wheelchair, Crutches, etc.)? No PATIENT GENDER DATA: Male PATIENT RELEVANT IMPLANT DATA REVIEWED: Not Applicable PATIENT PRESENTS WITH AN IMPLANTABLE OR ATTACHED CORPORATE VP ADVERTISING & ONLINE: No RADIOLOGY DEPARTMENT: CT; Exam(s) Completed: Brain PERIPHERAL IV DATA: Not applicable SIGNED BY: KORY Bolivar May 12, 2024 8:35 AM documented in this encounterMadison Health10-01-2024 NoteHNO ID: [id number] Author: CLAIRE VILCHIS CT Service: ? Author Type: Financial Management Analyst Type: Progress Notes Filed: 05/12/2024 08:35 Note Text: Radiology Service Progress Note PATIENT NAME: Samir Casitllo DATE OF SERVICE: May 12, 2024 TIME: 8:35 AM PATIENT IDENTITY VERIFICATION COMPLETED USING TWO (2) IDENTIFIERS: Name and Date of confirmed by patient verbally and Name and Date of confirmed by identification band. FALL SCREENING: Has the patient had 2 falls in the last year or 1 fall with injury or currently using an Ambulatory Assistive Device (Walker, Cane, Wheelchair, Crutches, etc.)? No PATIENT GENDER DATA: Male PATIENT RELEVANT IMPLANT DATA REVIEWED: Not Applicable PATIENT PRESENTS WITH AN IMPLANTABLE OR ATTACHED CORPORATE VP ADVERTISING & ONLINE: No RADIOLOGY DEPARTMENT: CT; Exam(s) Completed: Brain PERIPHERAL IV DATA: Not applicable SIGNED BY: KORY Bolivar May 12, 2024 8:35 [facility]09-23-2024 Instructions* Patient Instructions* Ebony Trent DO - 05/04/2024 10:[address] scan of brain Physical therapy Follow-up after neuropsych Please do not climb ladders or do other activities for high fall risk. documented in this encounterMadison Health09-23-2024 History of Present illness Narrative* Ebony Trent DO - 05/04/2024 9:30 AM EDT Images from the original note were not included. [facility] General Neurology Follow up/ Established patient visit Individuals who were included in, or assisted with the encounter were: Samir Castillo Ebony Black DO Chief Complaint/Issues: Samir Castillo is a 69 year old male seen in the [facility] for General Neurology for: Memory loss Most Recent Neurological Assessment and Plan: Last Filed Values Date of Most Recent Assessment and Plan 08/15/22 Specialty General Neurology Assessment Mr. Castillo is a 67 year old man with MCI, largely attributed to severe JITENDRA and depression. Plan He was told work with his providers for the depression and JITENDRA. We will re- evaluate things in 6 months HPI/Interval History: Here for follow-up, last seen in August. He is accompanied by two daughters. At that time he had recently been diagnosed with sleep apnea. He admits to not using CPAP mask at all. It is difficult to tolerate. He has some balance issues, cannot walk far. Has fallen about a week ago. Locked himself out of thehouse, fell climbing back in. Tends to lean to the right while walking, which started a few months ago. Depression not well controlled, denies SI. PCP took over medications. No adjustment in 3 Has HANGERSMITH s He denies hallucinations. MOCA December 2021 was 16. He thought someone was knocking on the door, nobody was there. Appetite is good. He lives alone. Does not have social interaction much, lives by himself. Does not want to live with his daughtes. Fell in pond, could not get out. Has not done PT lately. One fall was resulted in fractured, torna rotator cuff on the left. General Examination: There were no vitals taken for this visit. General: Awake, alert, interactive, no acute distress, good nutritional status, normal development,well-kept Skin: Rash: absent Pigmentation: absent HEENT: Head: normocephalic, no dysmorphism Eyes: normal Oropharynx: normal Extremities: Edema: absent Trophic change: absent Heart: RRR, no cyanosis Lungs: Chest rise symmetrical Neurological Exam Mental Status Alert, fully oriented, attentive Cranial Nerves Visual wilson intact. Fundi with [...] Deep tendon reflexes graded by MR[facility] Gait Leaning to the right when walking Assessment & Plan 05/04/2024 - General Neurology, Ebony Black, DO ASSESSMENT Mr. Castillo is a 69 year old man with prior MCI on neuropsych previously described as largely due todepression and untreated sleep apnea. Memory worse since the last two years since the test was lastdone. Also some new gait imbalance of unclear etiology. PLAN CT brain PT Encouraged to talk to prescriber of CPAP for additional mask options Neuropsych re-referral Follow-up after neuropsych testing No diagnosis found. No follow-ups on file. [...] AND 1/2 TABLETS BY MOUTH EVERY DAY omega 8-nou-vmn-fish oil (FISH OIL) 100-160-1,000 mg cap Take by mouth. No current facility-administered medications for this visit. [...] reviewed and are negative. Subjective Patient-Entered Data: 05/04/24 - PHQ-2 Score: 6 PHQ-9 Score: 23 GENERAL NEUROLOGY SCORES 08/08/2022 02/18/2023 05/04/2024 PROMIS 10 Health, in general Fair Poor Fair Quality of life, in general Poor Fair Fair Physical health, in general Poor Poor Poor Mental health, in general Poor Poor Poor Social activities satisfaction Poor Poor Poor Performing ADL's A little A little Not at all Social role satisfaction Poor Fair Poor Pain, on average 5 7 6 Fatigue, on average Very severe Very severe Very severe Emotional problems Always Always Always PHYSICAL Score 26.7 (Poor) 23.5 (Poor) 23.5 (Poor) MENTAL Score 21.2 (Poor) 25.1 (Poor) 25.1 (Poor) 02/18/2023 05/04/2024 05/04/2024 Depression Screening PHQ-2 Score 6 6 6 PHQ-9 Score 16 16 23 EDITH-2 Total Score 6 EDITH-7 Total Score 19 12/22/2021 08/08/2022 SLEEP APNEA SCORE Probability of moderate-severe sleep apnea (%) SAPS V2 23.61 (Sleep study not recommended) 72 (Recommend sleep study) 04/10/2022 AVERAGE SLEEP 24 HOURS Average sleep last 24 hrs 9 12/21/2021 PROMIS CAT Sleep Disturbance PROMIS Sleep Disturbance T-Score 78 (severe) I spent a total of 30 minutes on the date of the service which included preparing to see the patient, [id number] patient care, completing clinical documentation, obtaining and/or reviewing separately obtained history, performing a medically appropriate examination, counseling and educating the pat ient/family/caregiver, and ordering medications, tests, or procedures. Ebony Black DO 05/04/2024 PROMIS Global Health Physical Health Summary Physical health: Poor Everyday physical activity, ability: Not at all Fatigue: Very severe Pain level: 6 General health: Fair Social activities/roles, ability: Poor Physical Health T-Score 23.5 (Poor) Physical Health Percentile 0 PROMIS Global Health Mental Health Summary Quality of life: Fair Mental health (mood,thinking): Poor Social satisfaction: Poor Emotional problems (anxious,depressed): Always Mental Health T-Score 25.1 (Poor) Mental Health Percentile 1 PHQ-9 Score: 23(Severe Depression) PHQ-9 Self-Harm: Not at all EDITH-7 Score: 19(Severe Anxiety) NEURO-QOL Cognitive Function T-Score 22(Severe Dysfunction) Neuro-Qol Cognitive Function Percentile 0 PROMIS Physical Function T-Score 34(Moderate Dysfunction) PROMIS Physical Function Percentile 5 PROMIS Pain Interference T-Score 76(Severe) PROMIS Pain Interference Percentile 0 Percentiles provide an indication of how a patient's score ranks in relation to the [place] general population. > 31st percentile is within normal limits or better *< 31st percentile is at least SD worse than population, which may be clinically relevant < 16th percentile is at least 1 SD worse than population and warrants attention documented in this encounterMadison Health09-23-2024 NoteHNO ID: [id number] Author: EBONY TRENT DO Service: ? Author Type: Physician Type: Progress Notes Filed: 05/04/2024 22:17 Note Text: [facility] General Neurology Follow up/ Established patient visit Individuals who were included in, or assisted with the encounter were: Samir Castillo Ebony Black DO Chief Complaint/Issues: Samir Castillo is a 69 year old male seen in the [facility] for General Neurology for: Memory loss Most Recent Neurological Assessment and Plan: Last Filed Values Date of Most Recent Assessment and Plan 08/15/22 Specialty General Neurology Assessment Mr. Castillo is a 67 year old man with MCI, largely attributed to severe JITENDRA and depression. Plan He was told work with his providers for the depression and JITENDRA. We will re-evaluate things in 6 months HPI/Interval History: Here for follow-up, last seen in August. He is accompanied by two daughters. At that time he had recently been diagnosed with sleep apnea. He admits to not using CPAP mask at all. It is difficult to tolerate. He has some balance issues, cannot walk far. Has fallen about a week ago. Locked himself out of the house, fell climbing back in. Tends to lean to the right while walking, which started a few months ago. Depression not well controlled, denies SI. PCP took over medications. No adjustment in 3 Has HANGERSMITH s He denies hallucinations. MOCA December 2021 was 16. He thought someone was knocking on the door, nobody was there. Appetite is good. He lives alone. Does not have social interaction much, lives by himself. Does not want to live with his daughtes. Fell in pond, could not get out. Has not done PT lately. One fall was resulted in fractured, torna rotator cuff on the left. General Examination: There were no vitals taken for this visit. General: Awake, alert, interactive, no acute distress, good nutritional status, normal development, well-kept Skin: Rash: absent Pigmentation: absent HEENT: Head: normocephalic, no dysmorphism Eyes: normal Oropharynx: normal Extremities: Edema: absent Trophic change: absent Heart: RRR, no cyanosis Lungs: Chest rise symmetrical Neurological Exam Mental Status Alert, fully oriented, attentive Cranial Nerves Visual wilson intact. Fundi with [...] Deep tendon reflexes graded by MRC Gait Leaning to the right when walking Assessment AND Plan 05/04/2024 - General Neurology, Ebony Black, DO ASSESSMENT Mr. Castillo is a 69 year old man with prior MCI on neuropsych previously described as largely due to depression and untreated sleep apnea. Memory worse since the last two years since the test was last done. Also some new gait imbalance of unclear etiology. PLAN CT brain PT Encouraged to talk to prescriber of CPAP for additional mask options Neuropsych re-referral Follow-up after neuropsych testing No diagnosis found. No follow-ups on file. [...] metoprolol succinate ER 50 mg tablet,extended release (more content not included)...[facility]02-08-2024 History of Present illness Narrative* Shaikh Cornelio MD - 09/19/2023 5:35 PM ESTAssociated Problem(s): EDITH (generalized anxiety disorder) ([facility]) Improved now. C/w current regimen. * Shaikh Cornelio MD - 09/19/2023 5:35 PM ESTAssociated Problem(s): Other hyperlipidemia (CMS/[facility]) Check Lipid panel. * Shaikh Cornelio MD - 09/19/2023 5:35 PM ESTAssociated Problem(s): Recurrent major 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) ([facility]) Symptoms improved and well controlled since Zoloft was increased to 200 mg. C.w wellbutrin, zoloft, buspirone, trazodone and olanzapine. No SI/HI. * Shaikh Cornelio MD - 09/19/2023 5:34 PM ESTAssociated Problem(s): Traumatic complete tear of left rotator cuff Noted on MRI - following Orthopedics. Patient has a follow up appointment next week and it appears that he will likely need surgery for it. * Shaikh Cornelio MD - 09/19/2023 5:33 PM ESTAssociated Problem(s): CKD (chronic kidney disease) stage 4, GFR 15-29 ml/min ([facility]) Has an appointment with Nephrology. Avoid NSAIDS. C/w current regimen. 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 On ASA, BB, Imdur, plavix, statin Denies CP, SOB, palpitations. Following [facility] cardiology. * Shaikh Cornelio MD - 09/19/2023 1:45 PM EST Subjective Patient ID: Kel Castillo Jr is a 68 y.o. male who presents for Follow-up ([facility]S/[facility]OULDER). Doing well. No active complaints to offer except for left shoulder pain. He is tolerating his medications well. His mood is better with increased dose of Zoloft. Denies CP, SOB, palpitations. He willsee Dr Mcgowan next week to discuss results [...] mouth in the morning and 20 mg beforebedtime. [DISCONTINUED] fenofibrate micronized (Antara) 43 MG capsule Take 43 mg by mouth in the morning. Take with meals. 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 On ASA, BB, Imdur, plavix, statin Denies CP, SOB, palpitations. Following [facility] cardiology. Relevant Medications aspirin 81 MG EC tablet isosorbide mononitrate ER (Imdur) 60 MG 24 hr tablet metoprolol tartrate (Lopressor) 50 MG tablet clopidogrel (Plavix) 75 MG tablet Other Relevant Orders CBC and differential Comprehensive metabolic panel Other hyperlipidemia ([facility]) Check Lipid panel. Relevant Medications atorvastatin (Lipitor) 80 MG tablet fenofibrate micronized (Antara) 43 MG capsule Other Relevant Orders Lipid panel CKD (chronic kidney disease) stage 4, GFR 15-29 ml/min ([facility]) Has an appointment with Nephrology. Avoid NSAIDS. C/w current regimen. Relevant Orders CBC and differential Comprehensive metabolic panel Protein, urine, random Creatinine, urine, random Gastroesophageal reflux disease without esophagitis Relevant Medications famotidine (Pepcid) 20 MG tablet EDITH (generalized anxiety disorder) ([facility]) Improved now. C/w current regimen. Relevant Medications sertraline (Zoloft) 100 MG tablet traZODone (Desyrel) 100 MG tablet Traumatic complete tear of left rotator cuff - Primary Noted on MRI - following Orthopedics. Patient has a follow up appointment next week and it appears that he will likely need surgery for it. Other Visit Diagnoses Primary hypertension ([facility]) Relevant Medications amLODIPine (Norvasc) 5 MG tablet isosorbide mononitrate ER (Imdur) 60 MG 24 hr tablet metoprolol tartrate (Lopressor) 50 MG tablet Other Relevant Orders CBC and differential Comprehensive metabolic panel Chronic obstructive pulmonary disease, unspecified COPD type ([facility]) Relevant Medications Bpfutzjkxvn-Zwztgodyu-Wywnxq (Trelegy Ellipta) 100-62.5-25 MCG/ACT aerosol powder No follow-ups on file. documented in this encounterSaint Louis University Health Science [id number] Instructions* Patient Instructions* Ebony Kaufman DO - 08/15/2022 4:17 PM EST Please work with your doctor on the sleep apnea and psychiatrist for depression. Follow-up in 6 months. documented in this encounterMadison Health01-04-2023 History of Present illness Narrative* Ebony Kaufman DO - 08/15/2022 3:47 PM EST Images from the original note were not included. [facility] Follow up/ Established patient visit Individuals who were included in, or assisted with the encounter were: Samir Castillo Ebony Kaufman DO Chief Complaint/Issues: Samir Castillo is a 67 year old male seen in the [facility] for: Follow-up [...] the same, maybe a bit worse around [place] given the anniversary of his daughter's was [...] for the depression and JITENDRA. We will re- evaluate things in 6 months No diagnosis found. [...] AND 1/2 TABLETS BY MOUTH EVERY DAY Nxufcjihgauim-Bgkvbprk-Quiifk (MULTIVITAMIN 50 PLUS) tab Take 1 tablet by mouth once daily. omega 8-aug-fpl-fish oil (FISH OIL) 100-160-1,000 mg cap Take [...] which included preparing to see the patient, jnrt-ll-bkfn patient care, completing clinical documentation, obtaining and/or reviewing separately obtained history, performing a medically appropriate examination, counseling and educating the pat ient/family/caregiver, and ordering medications, tests, or procedures. Ebony Kaufman DO documented in this encounterMad[facility]11-29-2022 Evaluation note* Encounter Date Diagnosis Assessment Notes Treatment Notes Treatment Clinical Notes Jun, Chronic kidney disease, stage 3b (ICD-10 - N18.32) Patient now has CKD stage IIIb. kidney function is at baseline SCr 1.5 mg/dl and GFR 45 ml/min Patient has no proteinuria .. Patient is not on RAULITO inhibitor or ARB due to hyperkalemia. Blood [...] mmol/L. 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 documented in this encounterMadison Health08-30-2022 History of Present illness Narrative* Ebony Kaufman DO - 04/10/2022 10:11 AM EDT Images from the original note were not included. [facility] New Patient Evaluation Consulting Provider: Jessie Bright [id number] [facility] [place] [address] Individuals who were included in, or assisted with the encounter were: Samir Castillo Ebony Kaufman DO Chief Complaint/Issues: Samir Castillo is a 66 year old male seen in the [facility] for: Memory HPI: Here for memory loss, previously seen by Dr. Bright. 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 Knows [...] AND 1/2 TABLETS BY MOUTH EVERY DAY Aeuioajnufddn-Nhegxdus-Tufkto (MULTIVITAMIN 50 PLUS) tab Take 1 tablet by mouth once daily. omega 1-lxd-qqg-fish oil (FISH OIL) 100-160-1,000 mg cap Take [...] which included preparing to see the patient, yrga-bx-ibfs patient care, completing clinical documentation, obtaining and/or reviewing separately obtained history, performing a medically appropriate examination, and counseling and educating the patient/family/caregiver. Ebony Kaufman DO documented in this encounterMadison Health08-02-2022 Evaluation note* Encounter Date Diagnosis Assessment Notes Treatment Notes Treatment Clinical Notes Mar, Depression, major, recurrent, moderate (ICD-10 - F33.1) [email or web address] Other 07-25-2022 Evaluation note* Encounter Date Diagnosis Assessment Notes Treatment Notes Treatment Clinical Notes Feb, Depression, major, recurrent, moderate (ICD-10 - F33.1) [email or web address] Other 07-19-2022 Evaluation note* Encounter Date Diagnosis [...] Sleep apnea, unspecified type (ICD-10 - G47.30) [email or web address] Other 07-01-2022 Miscellaneous Notes* Telephone Encounter - [...] Dr. Roche Message text documented in this encounterMadison Health07-01-2022 History of Present illness Narrative* Brayan Trent CRT - 02/09/2022 10:41 AM EDT PULM FUNCTION SMARTBLOCK: Provider: Prince Aby MD Spirometry w/BD: 1 System: MC9 - [id number] documented in this encounterMadison Health06-30-2022 History of Present illness Narrative* RT Ed(R) - 02/08/2022 4:00 PM EDT Radiology Service [...] 08, 2022 4:21 PM documented in this encounterMadison Health06-20-2022 Evaluation note* Encounter Date Diagnosis Assessment Notes [...] relief. Also reports that he saw his logistics system engineer recently who does not think that his shortness of breath is related to his heart. He did have an appointment with [place] [facility] but has since decided to see pulmonology in [place]. Given his PFT and CT results I [...] with Dr. Hurtado at their upcoming appointment. [email or web address] Other 05-27-2022 Evaluation note* Encounter Date Diagnosis Assessment Notes Treatment Notes Treatment Clinical Notes December, Obstructive lung disease (ICD-10 - J44.9) December, Pulmonary nodule (ICD-10 - R91.1) [email or web address] Other 05-23-2022 Evaluation note* Encounter Date Diagnosis Assessment Notes Treatment Notes Treatment Clinical Notes December, Shortness of breath (ICD-10 - R06.02) [email or web address] Other 05-17-2022 Evaluation note* Encounter Date Diagnosis [...] next month or so we will recheck. [email or web address] Other 05-13-2022 History of Present illness Narrative* Jessie Bright MD - 12/22/2021 8:41 AM EDT Images from the original note were not included. [facility] New Patient Evaluation Consulting Provider: SELF Individuals who were included in, or assisted with the encounter were: Samir Jose Bright MD Chief Complaint/Issues: Samir Castillo is a 66 year old male seen in the [facility] for: 1. 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 Knows [...] & Plan 12/22/2021 - General Neurology, Jessie Bright MD ASSESSMENT 66-year-old with memory decline, today [...] AND 1/2 TABLETS BY MOUTH EVERY DAY Umjjzilazgygf-Ruchujpn-Nezzql (MULTIVITAMIN 50 PLUS) tab Take 1 tablet by mouth once daily. omega 7-jrn-bqr-fish oil (FISH OIL) 100-160-1,000 mg cap Take [...] which included preparing to see the patient, dgbu-ph-zrpv patient care, completing clinical documentation and performing a medically appropriate examination. Jessie Bright MD documented in this encounterMadison Health05-09-2022 Evaluation note* Encounter Date Diagnosis Assessment Notes Treatment Notes Treatment Clinical Notes December, Depression, major, recurrent, moderate (ICD-10 - F33.1) [email or web address] Other 10-12-2021 Evaluation note* Encounter Date Diagnosis [...] reason. He does not take diuretics or RAULITO inhibitors. Bilateral kidney ultrasound in August 2019 [...] metoprolol. He follow-up with Dr. Rubio, his logistics system engineer in [place]. He stated that his heart looks fine. [...] at home also runs between 140-150 systolic. [place] systolic blood pressure at home should be [...] his PCP Dr. Arellano for lipid profile. 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)- Primary Other persistent mental disorders due to conditions classified elsewhere Cognitive impairment, mild, so stated Mild cognitive impairment, so stated Depression, unspecified depression type documented in this encounter [facility] noteNo InformationNortWar[facility] [employer] Other Evaluation noteNossm [facility] [employer] Other Evaluation note* Diagnosis Cognitive impairment, mild, so stated- Primary Mild cognitive impairment, so stated documented in this encounter [facility] note* Diagnosis Shortness of breath- Primary documented in this encounter [facility] note* Diagnosis Cognitive impairment, mild, so stated Mild cognitive impairment, so stated 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) Other persistent mental disorders due to conditions classified elsewhere Depression, unspecified depression type documented in this encounter [facility] note* Diagnosis Shortness of breath documented in this encounter [facility] note* Diagnosis Recurrent major 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)- Primary Major depressive disorder, recurrent episode, in partial or unspecified remission MCI (mild cognitive impairment) Mild cognitive impairment, so stated documented in this encounter [facility] noteNo assessment information [place] Work Phone: [employer] note* Diagnosis MCI (mild cognitive impairment)- Primary Mild cognitive impairment, so stated documented in this encounter [facility]NoWell[facility] [employer] Other Evaluation note* Diagnosis Traumatic complete tear of left rotator cuff, subsequent encounter- Primary Recurrent major 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) ([facility]) Major depressive disorder, recurrent episode, in partial or unspecified remission Other hyperlipidemia ([facility]) EDITH (generalized anxiety disorder) ([facility]) Generalized anxiety disorder CKD (chronic kidney disease) stage 4, GFR 15-29 ml/min ([facility]) Chronic kidney disease, Stage IV (severe) Gastroesophageal reflux disease without esophagitis Esophageal reflux 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 ([facility]) Primary hypertension ([facility]) Unspecified essential hypertension Chronic obstructive pulmonary disease, unspecified COPD type ([facility]/HCC) [facility]* Diagnosis Onset Date Resolution Status Anemia acute CAD (coronary artery disease) of artery bypass graft acute Chronic kidney disease, stage 3b acute Hyperkalemia acute Hyperlipemia acute [id number] acute [facility] Work Phone: Evaluation note* Diagnosis Dyspnea and respiratory abnormalities- Primary Other dyspnea and respiratory abnormality Centrilobular emphysema (HCC) Other emphysema Class 1 obesity due to excess calories with serious comorbidity and body mass index (BMI) of 32.0 to 32.9 in adult Sleep-disordered breathing Other sleep disturbances Memory loss- Primary Abnormality of gait documented in this encounter [facility]* Diagnosis Dyspnea and respiratory abnormalities- Primary Other dyspnea and respiratory abnormality Centrilobular emphysema (HCC) Other emphysema Class 1 obesity due to excess calories with serious comorbidity and body mass index (BMI) of 32.0 to 32.9 in adult Sleep-disordered breathing Other sleep disturbances Memory loss documented in this encounter [facility]* Diagnosis Traumatic complete tear of left rotator cuff, subsequent encounter- Primary Recurrent major 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) ([facility]) Major depressive disorder, recurrent episode, in partial or unspecified remission Other hyperlipidemia ([facility]) EDITH (generalized anxiety disorder) ([facility]) Generalized anxiety disorder CKD (chronic kidney disease) stage 4, GFR 15-29 ml/min ([facility]) Chronic kidney disease, Stage IV (severe) Gastroesophageal reflux disease without esophagitis Esophageal reflux 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 ([facility]) Primary hypertension ([facility]) Unspecified essential hypertension Chronic obstructive pulmonary disease, unspecified COPD type ([facility]) Chronic obstructive pulmonary disease, unspecified COPD type ([facility])- Primary 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 ([facility]) CKD (chronic kidney disease) stage 4, GFR 15-29 ml/min ([facility]) Chronic kidney disease, Stage IV (severe) Gastroesophageal reflux disease without esophagitis Esophageal reflux Recurrent major depressive disorder, in full remission ([facility]) Other hyperlipidemia ([facility]) EDITH (generalized anxiety disorder) ([facility]) Generalized anxiety disorder Recurrent major 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) ([facility]) Major depressive disorder, recurrent episode, in partial or unspecified remission Primary hypertension ([facility]/HCC) Unspecified essential hypertension Primary hypertension ([facility])- Primary Unspecified essential hypertension Other hyperlipidemia ([facility]) 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 ([facility]) Frequent falls Functional gait abnormality CKD (chronic kidney disease) stage 4, GFR 15-29 ml/min ([facility]/HCC) Chronic kidney disease, Stage IV (severe) documented in this encounter [facility] HealthcareEvaluation note* Diagnosis Traumatic complete tear of left rotator cuff, subsequent encounter- Primary Recurrent major 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) ([facility]) Major depressive disorder, recurrent episode, in partial or unspecified remission Other hyperlipidemia ([facility]) EDITH (generalized anxiety disorder) ([facility]) Generalized anxiety disorder CKD (chronic kidney disease) stage 4, GFR 15-29 ml/min ([facility]) Chronic kidney disease, Stage IV (severe) Gastroesophageal reflux disease without esophagitis Esophageal reflux 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 ([facility]) Primary hypertension ([facility]) Unspecified essential hypertension Chronic obstructive pulmonary disease, unspecified COPD type ([facility]) Chronic obstructive pulmonary disease, unspecified COPD type ([facility])- Primary 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 ([facility]) CKD (chronic kidney disease) stage 4, GFR 15-29 ml/min ([facility]) Chronic kidney disease, Stage IV (severe) Gastroesophageal reflux disease without esophagitis Esophageal reflux Recurrent major depressive disorder, in full remission ([facility]) Other hyperlipidemia ([facility]) EDITH (generalized anxiety disorder) ([facility]) Generalized anxiety disorder Recurrent major 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) ([facility]) Major depressive disorder, recurrent episode, in partial or unspecified remission Primary hypertension ([facility]) Unspecified essential hypertension Primary hypertension ([facility])- Primary Unspecified essential hypertension Other hyperlipidemia ([facility]) 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 ([facility]) Frequent falls Functional gait abnormality CKD (chronic kidney disease) stage 4, GFR 15-29 ml/min ([facility]/HCC) Chronic kidney disease, Stage IV (severe) Recurrent major 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) ([facility]) Major depressive disorder, recurrent episode, in partial or unspecified remission documented in this encounter [facility] HealthcareEvaluation note* Diagnosis Gastroesophageal reflux disease without esophagitis Esophageal reflux Recurrent major 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) ([facility]) Major depressive disorder, recurrent episode, in partial or unspecified remission [facility]* Diagnosis Dyspnea and respiratory abnormalities- Primary Other dyspnea and respiratory abnormality Centrilobular emphysema (HCC) Other emphysema Class 1 obesity due to excess calories with serious comorbidity and body mass index (BMI) of 32.0 to 32.9 in adult Sleep-disordered breathing Other sleep disturbances Major neurocognitive disorder (HCC)- Primary Unspecified persistent mental disorders due to conditions classified elsewhere JITENDRA (obstructive sleep apnea) Obstructive sleep apnea (adult) (pediatric) Chronic kidney disease, unspecified CKD stage Coronary artery disease, unspecified vessel or lesion type, unspecified whether angina present, unspecified whether wales or transplanted heart Complaints of memory disturbance Memory loss [facility] Diagnosis Traumatic complete tear of left rotator cuff, subsequent encounter- Primary Recurrent major 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) ([facility]) Major depressive disorder, recurrent episode, in partial or unspecified remission Other hyperlipidemia ([facility]) EDITH (generalized anxiety disorder) ([facility]) Generalized anxiety disorder CKD (chronic kidney disease) stage 4, GFR 15-29 ml/min ([facility]) Chronic kidney disease, Stage IV (severe) Gastroesophageal reflux disease without esophagitis Esophageal reflux 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 ([facility]) Primary hypertension ([facility]) Unspecified essential hypertension Chronic obstructive pulmonary disease, unspecified COPD type ([facility]) Chronic obstructive pulmonary disease, unspecified COPD type ([facility])- Primary 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 ([facility]) CKD (chronic kidney disease) stage 4, GFR 15-29 ml/min ([facility]) Chronic kidney disease, Stage IV (severe) Gastroesophageal reflux disease without esophagitis Esophageal reflux Recurrent major depressive disorder, in full remission ([facility]) Other hyperlipidemia ([facility]) EDITH (generalized anxiety disorder) ([facility]) Generalized anxiety disorder Recurrent major 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) ([facility]) Major depressive disorder, recurrent episode, in partial or unspecified remission Primary hypertension ([facility]) Unspecified essential hypertension Primary hypertension ([facility])- Primary Unspecified essential hypertension Other hyperlipidemia ([facility]) 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 ([facility]) Frequent falls Functional gait abnormality CKD (chronic kidney disease) stage 4, GFR 15-29 ml/min ([facility]) Chronic kidney disease, Stage IV (severe) Primary hypertension ([facility])- Primary Unspecified essential hypertension Chronic obstructive pulmonary disease, unspecified COPD type ([facility]) Chronic kidney disease, stage 4 (severe) ([facility]) 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 ([facility]) Gastroesophageal reflux disease without esophagitis Esophageal reflux EDITH (generalized anxiety disorder) ([facility]) Generalized anxiety disorder Recurrent major depressive disorder, in full remission ([facility]) Mixed hyperlipidemia ([facility]) Mixed hyperlipidemia MCI (mild cognitive impairment) Mild cognitive impairment, so stated Other hyperlipidemia ([facility]) Recurrent major 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) ([facility]) Major depressive disorder, recurrent episode, in partial or unspecified remission documented in this encounter [facility] HealthcareEvaluation note* Diagnosis Dyspnea and respiratory abnormalities- Primary Other dyspnea and respiratory abnormality Centrilobular emphysema ([facility]) Other emphysema Class 1 obesity due to excess calories with serious comorbidity and body mass index (BMI) of 32.0 to 32.9 in adult Sleep-disordered breathing Other sleep disturbances Gait abnormality- Primary Abnormality of gait Memory loss Neck pain Cervicalgia [facility] encounter [facility]* Diagnosis Onset Date Resolution Status Admit Date Anemia acute October 27 3:58pm CAD (coronary artery disease ) of artery bypass graft acute October 27, 2024 3:58pm Chronic kidney disease, stage 3b acu te October 27, 2024 3:58pm Hyperkalemia acute October 27, 2024 3:58pm Hyperlipemia acute October 27, 2024 3:58pm Hypertensive chronic kidney disease with stage 1 through stage 4 chronic ki acute October 27, 2 025 3:58pm [facility] Work Phone: Evaluation note* Diagnosis Traumatic complete tear of left rotator cuff, subsequent encounter- Primary Recurrent major 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) ([facility]) Major depressive disorder, recurrent episode, in partial or unspecified remission Other hyperlipidemia EDITH (generalized anxiety disorder) ([facility]) Generalized anxiety disorder CKD (chronic kidney disease) stage 4, GFR 15-29 ml/min ([facility]) Chronic kidney disease, Stage IV (severe) Gastroesophageal reflux disease without esophagitis Esophageal reflux 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 ([facility]) Primary hypertension ([facility]) Unspecified essential hypertension Chronic obstructive pulmonary disease, unspecified COPD type ([facility] [facility]) Chronic obstructive pulmonary disease, unspecified COPD type ([facility])- Primary 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 ([facility]) CKD (chronic kidney disease) stage 4, GFR 15-29 ml/min ([facility]) Chronic kidney disease, Stage IV (severe) Gastroesophageal reflux disease without esophagitis Esophageal reflux Recurrent major depressive disorder, in full remission ([facility]) Other hyperlipidemia EDITH (generalized anxiety disorder) ([facility]) Generalized anxiety disorder Recurrent major 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) ([facility]) Major depressive disorder, recurrent episode, in partial or unspecified remission Primary hypertension ([facility]) Unspecified essential hypertension Primary hypertension ([facility])- Primary Unspecified essential hypertension Other hyperlipidemia 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 ([facility]) Frequent falls Functional gait abnormality CKD (chronic kidney disease) stage 4, GFR 15-29 ml/min ([facility]) Chronic kidney disease, Stage IV (severe) Primary hypertension ([facility])- Primary Unspecified essential hypertension Chronic obstructive pulmonary disease, unspecified COPD type ([facility]) Chronic kidney disease, stage 4 (severe) ([facility]) 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 ([facility]) Gastroesophageal reflux disease without esophagitis Esophageal reflux EDITH (generalized anxiety disorder) ([facility]) Generalized anxiety disorder Recurrent major depressive disorder, in full remission ([facility]) Mixed hyperlipidemia ([facility]) Mixed hyperlipidemia MCI (mild cognitive impairment) Mild cognitive impairment, so stated Other hyperlipidemia Recurrent major 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) ([facility]) Major depressive disorder, recurrent episode, in partial or unspecified remission Other hyperlipidemia EDITH (generalized anxiety disorder) ([facility]) Generalized anxiety disorder Recurrent major 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) ([facility]) Major depressive disorder, recurrent episode, in partial or unspecified remission documented in this encounter [facility]* Diagnosis Traumatic complete tear of left rotator cuff, subsequent encounter- Primary Recurrent major 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) ([facility]) Major depressive disorder, recurrent episode, in partial or unspecified remission Other hyperlipidemia EDITH (generalized anxiety disorder) ([facility]) Generalized anxiety disorder CKD (chronic kidney disease) stage 4, GFR 15-29 ml/min ([facility]) Chronic kidney disease, Stage IV (severe) Gastroesophageal reflux disease without esophagitis Esophageal reflux 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 ([facility]) Primary hypertension ([facility]) Unspecified essential hypertension Chronic obstructive pulmonary disease, unspecified COPD type ([facility]) Chronic obstructive pulmonary disease, unspecified COPD type ([facility])- Primary 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 ([facility]) CKD (chronic kidney disease) stage 4, GFR 15-29 ml/min ([facility]) Chronic kidney disease, Stage IV (severe) Gastroesophageal reflux disease without esophagitis Esophageal reflux Recurrent major depressive disorder, in full remission ([facility]) Other hyperlipidemia EDITH (generalized anxiety disorder) [place] Generalized anxiety disorder Recurrent major 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) [place] Major depressive disorder, recurrent episode, in partial or unspecified remission Primary hypertension [place] Unspecified essential hypertension Primary hypertension [place] Primary Unspecified essential hypertension Other hyperlipidemia 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 ([facility]) Frequent falls Functional gait abnormality CKD (chronic kidney disease) stage 4, GFR 15-29 ml/min ([facility]) Chronic kidney disease, Stage IV (severe) Primary hypertension ([facility])- Primary Unspecified essential hypertension Chronic obstructive pulmonary disease, unspecified COPD type ([facility]) Chronic kidney disease, stage 4 (severe) [place] 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 [place] Gastroesophageal reflux disease without esophagitis Esophageal reflux EDITH (generalized anxiety disorder) [place] Generalized anxiety disorder Recurrent major depressive disorder, in full remission ([facility]) Mixed hyperlipidemia ([facility]) Mixed hyperlipidemia MCI (mild cognitive impairment) Mild cognitive impairment, so stated Other hyperlipidemia Recurrent major 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) [place] Major depressive disorder, recurrent episode, in partial or unspecified remission Primary hypertension ([facility]) Unspecified essential hypertension Other hyperlipidemia Recurrent major 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) [place] Major depressive disorder, recurrent episode, in partial or unspecified remission 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* Diagnosis Traumatic complete tear of left rotator cuff, subsequent encounter- Primary Recurrent major 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) ([facility]) Major depressive disorder, recurrent episode, in partial or unspecified remission Other hyperlipidemia EDITH (generalized anxiety disorder) ([facility]) Generalized anxiety disorder CKD (chronic kidney disease) stage 4, GFR 15-29 ml/min ([facility]) Chronic kidney disease, Stage IV (severe) Gastroesophageal reflux disease without esophagitis Esophageal reflux 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 ([facility]) Primary hypertension ([facility]) Unspecified essential hypertension Chronic obstructive pulmonary disease, unspecified COPD type ([facility]) Chronic obstructive pulmonary disease, unspecified COPD type ([facility])- Primary 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 ([facility]) CKD (chronic kidney disease) stage 4, GFR 15-29 ml/min ([facility]) Chronic kidney disease, Stage IV (severe) Gastroesophageal reflux disease without esophagitis Esophageal reflux Recurrent major depressive disorder, in full remission ([facility]) Other hyperlipidemia EDITH (generalized anxiety disorder) ([facility]) Generalized anxiety disorder Recurrent major 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) ([facility]) Major depressive disorder, recurrent episode, in partial or unspecified remission Primary hypertension ([facility]) Unspecified essential hypertension Primary hypertension ([facility])- Primary Unspecified essential hypertension Other hyperlipidemia 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 ([facility]) Frequent falls Functional gait abnormality CKD (chronic kidney disease) stage 4, GFR 15-29 ml/min ([facility]) Chronic kidney disease, Stage IV (severe) Primary hypertension ([facility])- Primary Unspecified essential hypertension Chronic obstructive pulmonary disease, unspecified COPD type ([facility]) Chronic kidney disease, stage 4 (severe) ([facility]) 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 ([facility]) Gastroesophageal reflux disease without esophagitis Esophageal reflux EDITH (generalized anxiety disorder) ([facility]) Generalized anxiety disorder Recurrent major depressive disorder, in full remission ([facility]) Mixed hyperlipidemia ([facility]) Mixed hyperlipidemia MCI (mild cognitive impairment) Mild cognitive impairment, so stated Other hyperlipidemia Recurrent major 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) ([facility]) Major depressive disorder, recurrent episode, in partial or unspecified remission Neck pain- Primary Cervicalgia Primary hypertension ([facility]) Unspecified essential hypertension Chronic kidney disease, stage 4 (severe) ([facility]) EDITH (generalized anxiety disorder) ([facility]) Generalized anxiety disorder Functional gait abnormality MCI (mild cognitive impairment) Mild cognitive impairment, so stated documented in this encounter [facility]* Diagnosis Traumatic complete tear of left rotator cuff, subsequent encounter- Primary Recurrent major 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) ([facility]) Major depressive disorder, recurrent episode, in partial or unspecified remission Other hyperlipidemia EDITH (generalized anxiety disorder) ([facility]) Generalized anxiety disorder CKD (chronic kidney disease) stage 4, GFR 15-29 ml/min ([facility]) Chronic kidney disease, Stage IV (severe) Gastroesophageal reflux disease without esophagitis Esophageal reflux 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 ([facility]) Primary hypertension ([facility]) Unspecified essential hypertension Chronic obstructive pulmonary disease, unspecified COPD type ([facility]) Chronic obstructive pulmonary disease, unspecified COPD type ([facility])- Primary 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 ([facility]) CKD (chronic kidney disease) stage 4, GFR 15-29 ml/min ([facility]) Chronic kidney disease, Stage IV (severe) Gastroesophageal reflux disease without esophagitis Esophageal reflux Recurrent major depressive disorder, in full remission ([facility]) Other hyperlipidemia EDITH (generalized anxiety disorder) ([facility]) Generalized anxiety disorder Recurrent major 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) ([facility]) Major depressive disorder, recurrent episode, in partial or unspecified remission Primary hypertension ([facility]) Unspecified essential hypertension Primary hypertension ([facility])- Primary Unspecified essential hypertension Other hyperlipidemia 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 ([facility]) Frequent falls Functional gait abnormality CKD (chronic kidney disease) stage 4, GFR 15-29 ml/min ([facility]) Chronic kidney disease, Stage IV (severe) Primary hypertension ([facility])- Primary Unspecified essential hypertension Chronic obstructive pulmonary disease, unspecified COPD type ([facility]) Chronic kidney disease, stage 4 (severe) ([facility]) 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 ([facility]) Gastroesophageal reflux disease without esophagitis Esophageal reflux EDITH (generalized anxiety disorder) ([facility]) Generalized anxiety disorder Recurrent major depressive disorder, in full remission ([facility]) Mixed hyperlipidemia ([facility]) Mixed hyperlipidemia MCI (mild cognitive impairment) Mild cognitive impairment, so stated Other hyperlipidemia Recurrent major 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) ([facility]) Major depressive disorder, recurrent episode, in partial or unspecified remission Neck pain- Primary Cervicalgia Primary hypertension ([facility]) Unspecified essential hypertension Chronic kidney disease, stage 4 (severe) ([facility]) EDITH (generalized anxiety disorder) ([facility]) Generalized anxiety disorder Functional gait abnormality MCI (mild cognitive impairment) Mild cognitive impairment, so stated EDITH (generalized anxiety disorder) ([facility])- Primary Generalized anxiety disorder documented in this encounter [facility]* Diagnosis Traumatic complete tear of left rotator cuff, subsequent encounter- Primary Recurrent major 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) ([facility]) Major depressive disorder, recurrent episode, in partial or unspecified remission Other hyperlipidemia EDITH (generalized anxiety disorder) ([facility]) Generalized anxiety disorder CKD (chronic kidney disease) stage 4, GFR 15-29 ml/min ([facility]) Chronic kidney disease, Stage IV (severe) Gastroesophageal reflux disease without esophagitis Esophageal reflux 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 ([facility]) Primary hypertension ([facility]) Unspecified essential hypertension Chronic obstructive pulmonary disease, unspecified COPD type ([facility]) Chronic obstructive pulmonary disease, unspecified COPD type ([facility])- Primary 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 ([facility]) CKD (chronic kidney disease) stage 4, GFR 15-29 ml/min ([facility]) Chronic kidney disease, Stage IV (severe) Gastroesophageal reflux disease without esophagitis Esophageal reflux Recurrent major depressive disorder, in full remission ([facility]) Other hyperlipidemia EDITH (generalized anxiety disorder) ([facility]) Generalized anxiety disorder Recurrent major 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) ([facility]) Major depressive disorder, recurrent episode, in partial or unspecified remission Primary hypertension ([facility]) Unspecified essential hypertension Primary hypertension ([facility])- Primary Unspecified essential hypertension Other hyperlipidemia 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 ([facility]) Frequent falls Functional gait abnormality CKD (chronic kidney disease) stage 4, GFR 15-29 ml/min ([facility]) Chronic kidney disease, Stage IV (severe) Primary hypertension ([facility])- Primary Unspecified essential hypertension Chronic obstructive pulmonary disease, unspecified COPD type ([facility]) Chronic kidney disease, stage 4 (severe) ([facility]) 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 ([facility]) Gastroesophageal reflux disease without esophagitis Esophageal reflux EDITH (generalized anxiety disorder) ([facility]) Generalized anxiety disorder Recurrent major depressive disorder, in full remission ([facility]) Mixed hyperlipidemia ([facility]) Mixed hyperlipidemia MCI (mild cognitive impairment) Mild cognitive impairment, so stated Other hyperlipidemia Recurrent major 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) ([facility]) Major depressive disorder, recurrent episode, in partial or unspecified remission Neck pain- Primary Cervicalgia Primary hypertension ([facility]) Unspecified essential hypertension Chronic kidney disease, stage 4 (severe) ([facility]) EDITH (generalized anxiety disorder) ([facility]) Generalized anxiety disorder Functional gait abnormality MCI (mild cognitive impairment) Mild cognitive impairment, so stated Other hyperlipidemia 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 ([facility]) Primary hypertension ([facility]) Unspecified essential hypertension Recurrent major 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) ([facility]) Major depressive disorder, recurrent episode, in partial or unspecified remission EDITH (generalized anxiety disorder) ([facility]) Generalized anxiety disorder documented in this encounter [facility]* Diagnosis Traumatic complete tear of left rotator cuff, subsequent encounter- Primary Recurrent major 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) ([facility]) Major depressive disorder, recurrent episode, in partial or unspecified remission Other hyperlipidemia EDITH (generalized anxiety disorder) ([facility]) Generalized anxiety disorder CKD (chronic kidney disease) stage 4, GFR 15-29 ml/min ([facility]) Chronic kidney disease, Stage IV (severe) Gastroesophageal reflux disease without esophagitis Esophageal reflux 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 ([facility]) Primary hypertension ([facility]) Unspecified essential hypertension Chronic obstructive pulmonary disease, unspecified COPD type ([facility]) Chronic obstructive pulmonary disease, unspecified COPD type ([facility])- Primary 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 ([facility]) CKD (chronic kidney disease) stage 4, GFR 15-29 ml/min ([facility]) Chronic kidney disease, Stage IV (severe) Gastroesophageal reflux disease without esophagitis Esophageal reflux Recurrent major depressive disorder, in full remission ([facility]) Other hyperlipidemia EDITH (generalized anxiety disorder) ([facility]) Generalized anxiety disorder Recurrent major 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) ([facility]) Major depressive disorder, recurrent episode, in partial or unspecified remission Primary hypertension ([facility]) Unspecified essential hypertension Primary hypertension ([facility])- Primary Unspecified essential hypertension Other hyperlipidemia 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 ([facility]) Frequent falls Functional gait abnormality CKD (chronic kidney disease) stage 4, GFR 15-29 ml/min ([facility]) Chronic kidney disease, Stage IV (severe) Primary hypertension ([facility])- Primary Unspecified essential hypertension Chronic obstructive pulmonary disease, unspecified COPD type ([facility]) Chronic kidney disease, stage 4 (severe) ([facility]) 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 ([facility]) Gastroesophageal reflux disease without esophagitis Esophageal reflux EDITH (generalized anxiety disorder) ([facility]) Generalized anxiety disorder Recurrent major depressive disorder, in full remission ([facility]) Mixed hyperlipidemia ([facility]) Mixed hyperlipidemia MCI (mild cognitive impairment) Mild cognitive impairment, so stated Other hyperlipidemia Recurrent major 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) ([facility]) Major depressive disorder, recurrent episode, in partial or unspecified remission Neck pain- Primary Cervicalgia Primary hypertension ([facility]) Unspecified essential hypertension Chronic kidney disease, stage 4 (severe) ([facility]) EDITH (generalized anxiety disorder) ([facility]) Generalized anxiety disorder Functional gait abnormality MCI (mild cognitive impairment) Mild cognitive impairment, so stated Primary hypertension ([facility]) Unspecified essential hypertension Other hyperlipidemia Neck pain Cervicalgia Recurrent major 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) ([facility]) Major depressive disorder, recurrent episode, in partial or unspecified remission 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 ([facility]) Gastroesophageal reflux disease without esophagitis Esophageal reflux Chronic obstructive pulmonary disease, unspecified COPD type ([facility]) EDITH (generalized anxiety disorder) ([facility]) Generalized anxiety disorder documented in this encounter [facility]* Diagnosis Traumatic complete tear of left rotator cuff, subsequent encounter- Primary Recurrent major 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) ([facility] Major depressive disorder, recurrent episode, in partial or unspecified remission Other hyperlipidemia EDITH (generalized anxiety disorder) ([facility]) Generalized anxiety disorder CKD (chronic kidney disease) stage 4, GFR 15-29 ml/min ([facility]) Chronic kidney disease, Stage IV (severe) Gastroesophageal reflux disease without esophagitis Esophageal reflux 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 ([facility]) Primary hypertension ([facility]) Unspecified essential hypertension Chronic obstructive pulmonary disease, unspecified COPD type ([facility]) Chronic obstructive pulmonary disease, unspecified COPD type ([facility] Primary 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 ([facility]) CKD (chronic kidney disease) stage 4, GFR 15-29 ml/min ([facility]) Chronic kidney disease, Stage IV (severe) Gastroesophageal reflux disease without esophagitis Esophageal reflux Recurrent major depressive disorder, in full remission ([facility]) Other hyperlipidemia EDITH (generalized anxiety disorder) ([facility]) Generalized anxiety disorder Recurrent major 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) ([facility]) Major depressive disorder, recurrent episode, in partial or unspecified remission Primary hypertension ([facility]) Unspecified essential hypertension Primary hypertension ([facility] Primary Unspecified essential hypertension Other hyperlipidemia 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 ([facility]) Frequent falls Functional gait abnormality CKD (chronic kidney disease) stage 4, GFR 15-29 ml/min ([facility]) Chronic kidney disease, Stage IV (severe) Primary hypertension ([facility] Primary Unspecified essential hypertension Chronic obstructive pulmonary disease, unspecified COPD type ([facility]) Chronic kidney disease, stage 4 (severe) ([facility]) 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 ([facility]) Gastroesophageal reflux disease without esophagitis Esophageal reflux EDITH (generalized anxiety disorder) ([facility]) Generalized anxiety disorder Recurrent major depressive disorder, in full remission ([facility]) Mixed hyperlipidemia ([facility]) Mixed hyperlipidemia MCI (mild cognitive impairment) Mild cognitive impairment, so stated Other hyperlipidemia Recurrent major 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) ([facility]) Major depressive disorder, recurrent episode, in partial or unspecified remission Neck pain- Primary Cervicalgia Primary hypertension ([facility]) Unspecified essential hypertension Chronic kidney disease, stage 4 (severe) ([facility]) EDITH (generalized anxiety disorder) ([facility]) Generalized anxiety disorder Functional gait abnormality MCI (mild cognitive impairment) Mild cognitive impairment, so stated Neck pain- Primary Cervicalgia documented in this encounter [facility]* Diagnosis Traumatic complete tear of left rotator cuff, subsequent encounter- Primary Recurrent major 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) ([facility]) Major depressive disorder, recurrent episode, in partial or unspecified remission Other hyperlipidemia EDITH (generalized anxiety disorder) ([facility]) Generalized anxiety disorder CKD (chronic kidney disease) stage 4, GFR 15-29 ml/min ([facility]) Chronic kidney disease, Stage IV (severe) Gastroesophageal reflux disease without esophagitis Esophageal reflux 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 ([facility]) Primary hypertension ([facility]) Unspecified essential hypertension Chronic obstructive pulmonary disease, unspecified COPD type ([facility]) Chronic obstructive pulmonary disease, unspecified COPD type ([facility])- Primary 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 ([facility]) CKD (chronic kidney disease) stage 4, GFR 15-29 ml/min ([facility]) Chronic kidney disease, Stage IV (severe) Gastroesophageal reflux disease without esophagitis Esophageal reflux Recurrent major depressive disorder, in full remission ([facility]) Other hyperlipidemia EDITH (generalized anxiety disorder) ([facility]) Generalized anxiety disorder Recurrent major 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) ([facility]) Major depressive disorder, recurrent episode, in partial or unspecified remission Primary hypertension ([facility]) Unspecified essential hypertension Primary hypertension ([facility])- Primary Unspecified essential hypertension Other hyperlipidemia 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 ([facility]) Frequent falls Functional gait abnormality CKD (chronic kidney disease) stage 4, GFR 15-29 ml/min ([facility]) Chronic kidney disease, Stage IV (severe) Primary hypertension ([facility])- Primary Unspecified essential hypertension Chronic obstructive pulmonary disease, unspecified COPD type ([facility]) Chronic kidney disease, stage 4 (severe) ([facility]) 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 ([facility]) Gastroesophageal reflux disease without esophagitis Esophageal reflux EDITH (generalized anxiety disorder) ([facility]) Generalized anxiety disorder Recurrent major depressive disorder, in full remission (CMS/HCC) Mixed hyperlipidemia ([facility]) Mixed hyperlipidemia MCI (mild cognitive impairment) Mild cognitive impairment, so stated Other hyperlipidemia Recurrent major 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) ([facility]) Major depressive disorder, recurrent episode, in partial or unspecified remission Neck pain- Primary Cervicalgia Primary hypertension ([facility]) Unspecified essential hypertension Chronic kidney disease, stage 4 (severe) ([facility]) EDITH (generalized anxiety disorder) ([facility]) Generalized anxiety disorder Functional gait abnormality MCI (mild cognitive impairment) Mild cognitive impairment, so stated Cervical spondylosis- Primary Cervical spondylosis without myelopathy Neck pain Cervicalgia Primary hypertension ([facility]) Unspecified essential hypertension Chronic kidney disease, stage 4 (severe) ([facility]) EDITH (generalized anxiety disorder) ([facility]) Generalized anxiety disorder H/O: lung cancer Personal history of malignant neoplasm of bronchus and lung MCI (mild cognitive impairment) Mild cognitive impairment, so stated documented in this encounter [facility]* Diagnosis Cervical spondylosis- Primary Cervical spondylosis without myelopathy Cervical spondylosis- Primary Cervical spondylosis without myelopathy Cervical spondylosis Cervical spondylosis without myelopathy [facility] - [facility]orted* Type Description Date Medical History hypertension Medical History hypercholesterolemia Medical History lung cancer Medical History heart disease Medical History A flutter Medical History Esophageal reflux Medical History DEPRESSION AND ANXIETY Surgical History CABG Surgical History hernia Surgical History lobectomy: lung Surgical History [facility] [place]/Dr Joshi--hernia repair 2020 Hospitalization History see above [email or web address] Other History general Narrative - ReportedNoBeebrite Other HisFlavourly general Narrative - ReportedNoBeebrite Other Reason for referral (narrative)* Reason * Waiting for appt pulmonology, lung nodule, progressive SOB, hx. lung cancer Diagnosis 1 Pulmonary nodule (R9 1.1) Referral Organization [facility] Referring Provider First Name Cristo Referring Provider Last Name Gabriele Referring Provider Specialty Family [facility] cine Referred Organization [facility] Referred Provider Gonsalo Hawley Referred Address [address] [place] [address],[place] [address],[place], [place],[address] Referred Provider Specialty Pulmonary Di finn Referral Priority Routine General Notes Mattie Carballo 01:40:04 PM >referral received and sent p2p successful per log [email or web address] Other Reason for referral (narrative)* Outpatient Procedure (Routine) - Pending Review Specialty Diagnoses / Procedures Referred By Contximena t Referred To Contact [facility] Diagnoses Shortness of breath Procedures SPIROMETRY WITH DILATOR IF OBSTRUCTED BRNCDILAT RSPSE SPMTRY PRE&POST-BRNCDILAT ADMN Marisol Davis MD [address] [place] [address] [facility] [place] [address] [place] [id number] Referral ID Status Reason Start Date Expiration Date Visits Requested Visits Authorized [id number] Pending Review Auto-Generat ed Referral 02/09/2022 03/10/2023 1 1 [facility] for visit NarrativeRef by Dr. Suazo for pulmonology, lung nodule, progressive SOB, hx. lung cancerNort RentMama Other Summary Purpose Family History No Family History Records Found Relationship Condition Age at Onset Recorded Date/T yanique Not Specified Hypertension Unknown Diabetes mellitus Unknown father Medical history unknown Unknown Relationship Condition Age at Onset Recorded Date/T yanique mother Hypertension Unknown Diabetes mellitus Unknown father Medical history unknown Unknown brother Heart disease Unknown daughter Family history of mental disorder Unknown father Unknown family member Unknown Family history of mental disorder Unknown Unknown sister Diabetes mellitus Unknown Advance Directives No Advanced Directives Records Found Advance Directive Response Recorded Date/ Time Advance Directives No July 6:23pm Hospital Course Note MR#: [id number] [facility] Pt. Name: Kel Castillo Admitted: 10/05/2019 [...] BRAIN BRAIN STEM W/[place] [address] [place] [address] Mr Imaging Referral ID Status Reason Start Date Expiration Date Visits Requested Visits Authorized [id number] Authorized Auto-Generat ed Referral 12/22/2021 01/21/2023 1 1 Specialty Diagnoses / Procedures Referred By Contac t Referred To Contact MR IMAGING Diagnoses Cognitive impairment, mild, so stated Procedures MRI 3D POST PROCESSING 3D RENDERING W/INTERP&POSTPROC DIFF WORK STATION Alonzo Cabrera MD, [address] [place] [address] Mr Imaging Referral ID Status Reason Start Date Expiration Date Visits Requested Visits Authorized [id number] Pending Review Auto-Generat ed Referral 02/08/2022 03/10/2023 1 1 Referral ID Status Reason Start Date Expiration Date V isits Requested Visits Authorized [id number] Closed Auto-Generate d Referral 12/22/2021 01/21/2023 1 1 Specialty Diagnoses / Procedures Referred By Contac t Referred To Contact Psychology Diagnoses Recurrent major 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) Procedures CONSULT TO PSYCHOLOGY OFFICE/OUTPATIENT [facility] 60-74 MINUTES Ebony Kaufman DO [address] [place] [address] Referral ID Status Reason Start Date Expiration Date Visits Requested Visits Authorized [id number] Pending Review PCP Requested Referral 04/10/2022 04/10/2023 1 1 Specialty Diagnoses / Procedures Referred By Lam chacko Referred To Contact [facility] Diagnoses Abnormality of gait Procedures CONSULT TO PHYSICAL THERAPY PHYSICAL THERAPY EVALUATION HIGH COMPLEX 45 MINS Ebony Trent, [address] [place] [id number] [facility] [place] [address] Referral ID Status Reason Start Date Expiration Date Visits Requested Visits Authorized [id number] Pending Review Auto-Generat ed Referral 05/04/2024 05/04/2025 1 1 Specialty Diagnoses / Procedures Referred By Lam chacko Referred To Contact CT IMAGING Diagnoses Memory loss Procedures CT BRAIN WO IVCON CT HEAD/BRAIN W/O CONTRAST MATERIAL Ebony Trent, [address] [place] [address] Ct Imaging [place] [address] Referral ID Status Reason Start Date Expiration Date Visits Requested Visits Authorized [id number] Authorized Auto-Generat ed Referral 05/04/2024 06/03/2025 1 1 Specialty Diagnoses / Procedures Referred By Lam chacko Referred To Contact Diagnoses Memory loss Procedures NEUROPSYCHOLOGICAL TESTING CONSULT NEUROBEHAVIORAL STATUS XM PHYS/QHP 1ST HOUR NEUROPSYCHOLOGICAL TST EVAL PHYS/QHP 1ST HOUR NEUROPSYCHOLOGICAL TST EVAL PHYS/QHP EA ADDL HR PSYCL/NRPSYCL TST TECH 2+ TST 1ST 30 MIN PSYCL/NRPSYCL TST TECH 2+ TST EA ADDL 30 MIN Ebony Trent, [address] [place] [id number] Referral ID Status Reason Start Date Expiration Date Visits Requested Visits Authorized [id number] Ref Not Required PCP Requested Referral 05/04/2024 05/04/2025 1 3 Referral ID Status Reason Start Date Expiration Date V isits Requested Visits Authorized [id number] Closed Auto-Generate d Referral 05/04/2024 06/03/2025 1 1 Chief Complaint and Reason for Visit Chief Complaint g47.30 Chief Complaint RENAL 6 MONTH F/U Reason for Visit Anemia CAD (coronary artery disease) of artery bypass graft Chronic kidney disease, stage 3b Hyperkalemia Hyperlipemia [id number] Chief Complaint Admit Date RENAL 6 MONTH F/U October 27, 2024 3:5 8pm Reason for Visit Admit Date Anemia October 27, 2024 3:5 8pm CAD (coronary artery disease) of artery bypass graft October 27, 2024 3:58pm Chronic kidney disease, stage 3b October 102024 3:58pm Hyperkalemia October 27, 2024 3:5 8pm Hyperlipemia October 27, 2024 3:5 8pm Hypertensive chronic kidney disease with stage 1 through stage 4 chronic ki October 27, 2024 3:58pm Chief Complaint Admit Date RENAL 6 MONTH F/U October 27, 2024 3:5 8pm renal 3 month f/u January 19, 2025 4:22 pm Reason for Visit Admit Date Anemia October 27, 2024 3:5 8pm CAD (coronary artery disease) of artery bypass graft October 27, 2024 3:58pm Chronic kidney disease, stage 3b October 102024 3:58pm Hyperkalemia October 27, 2024 3:5 8pm Hyperlipemia October 27, 2024 3:5 8pm Hypertensive chronic kidney disease with stage 1 through stage 4 chronic ki October 27, 2024 3:58pm Anemia January 19, 2025 4:22 pm CAD (coronary artery disease) of artery bypass graft January 19, 2025 4:22pm Chronic kidney disease, stage 3b January 192024 4:22pm Hyperkalemia January 19, 2025 4:22 pm Hyperlipemia January 19, 2025 4:22 pm Hypertensive chronic kidney disease with stage 1 through stage 4 chronic ki January 19, 2025 4:22pm Additional Source Comments (unrecognized sect ion and content) No Status Records FoundNo Status Records FoundNo Status Records FoundNo Status Records FoundNo Status Records FoundNo Status Records FoundNo Status Records FoundNo Status Records FoundNo Status Records FoundNo Status Records Found INFORMATION SOURCE (unrecogn ized section and content) DATE CREATED AUTHOR 04/05/2018 [facility] DATE CREATED AUTHOR AUTHOR'S ORGANIZ ATION 01/06/2020 [facility] DATE CREATED AUTHOR AUTHOR'S ORGANIZ ATION 12/19/2022 [facility] DATE CREATED AUTHOR AUTHOR'S ORGANIZ ATION 04/22/2023 [facility] DATE CREATED AUTHOR AUTHOR'S ORGANIZ ATION 03/04/2024 [facility] DATE CREATED AUTHOR AUTHOR'S ORGANIZ ATION 05/13/2024 [facility] DATE CREATED AUTHOR AUTHOR'S ORGANIZ ATION 10/13/2024 [facility] DATE CREATED AUTHOR AUTHOR'S ORGANIZ ATION 10/15/2024 [facility] DATE CREATED AUTHOR AUTHOR'S ORGANIZ ATION 01/21/2025 [facility] DATE CREATED AUTHOR AUTHOR'S ORGANIZ ATION 01/30/2025 [facility] Source Comments (unrecognize d section and content) In the event this informatio n is protected by the Federal Confidentiality of Alcohol and Drug Abuse Patient Records regulations: The Federal rules restrict any use of the information to criminally investigate or prosecute any alcohol or drug abuse patient.[facility] HealthIn the event this information is protected by the Federal Confidentiality of Alcohol and Drug Abuse Patient Records regulations: The Federal rules restrict any use of the information to criminally investigate or prosecute any alcohol or drug abuse patient.[facility] HealthIn the event this information is protected by the Federal Confidentiality of Alcohol and Drug Abuse Patient Records regulations: The Federal rules restrict any use of the information to criminally investigate or prosecute any alcohol or drug abuse patient.[facility] HealthIn the event this information is protected by the Federal Confidentiality of Alcohol and Drug Abuse Patient Records regulations: The Federal rules restrict any use of the information to criminally investigate or prosecute any alcohol or drug abuse patient.[facility] HealthIn the event this information is protected by the Federal Confidentiality of Alcohol and Drug Abuse Patient Records regulations: The Federal rules restrict any use of the information to criminally investigate or prosecute any alcohol or drug abuse patient.[facility] HealthIn the event this information is protected by the Federal Confidentiality of Alcohol and Drug Abuse Patient Records regulations: The Federal rules restrict any use of the information to criminally investigate or prosecute any alcohol or drug abuse patient.[facility] HealthIn the event this information is protected by the Federal Confidentiality of Alcohol and Drug Abuse Patient Records regulations: The Federal rules restrict any use of the information to criminally investigate or prosecute any alcohol or drug abuse patient.[facility] HealthIn the event this information is protected by the Federal Confidentiality of Alcohol and Drug Abuse Patient Records regulations: The Federal rules restrict any use of the information to criminally investigate or prosecute any alcohol or drug abuse patient.[facility] HealthIn the event this information is protected by the Federal Confidentiality of Alcohol and Drug Abuse Patient Records regulations: The Federal rules restrict any use of the information to criminally investigate or prosecute any alcohol or drug abuse patient.[facility] HealthIn the event this information is protected by the Federal Confidentiality of Alcohol and Drug Abuse Patient Records regulations: The Federal rules restrict any use of the information to criminally investigate or prosecute any alcohol or drug abuse patient.[facility] HealthIn the event this information is protected by the Federal Confidentiality of Alcohol and Drug Abuse Patient Records regulations: The Federal rules restrict any use of the information to criminally investigate or prosecute any alcohol or drug abuse patient.[facility] HealthIn the event this information is protected by the Federal Confidentiality of Alcohol and Drug Abuse Patient Records regulations: The Federal rules restrict any use of the information to criminally investigate or prosecute any alcohol or drug abuse patient.[facility] HealthIn the event this information is protected by the Federal Confidentiality of Alcohol and Drug Abuse Patient Records regulations: The Federal rules restrict any use of the information to criminally investigate or prosecute any alcohol or drug abuse patient.[facility] Reason for Visit (unrecogniz ed section and content) Reason Comments New Patient Memory loss Specialty Diagnoses / Procedures Referred By Contac t Referred To Contact MR IMAGING Diagnoses Cognitive impairment, mild, so stated 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) Depression, unspecified depression type Procedures MRI BRAIN WO IVCON MRI BRAIN BRAIN STEM W/[place] [address] [place] [address] Mr Imaging Referral ID Status Reason Start Date Expiration Date V isits Requested Visits Authorized [id number] Closed Auto-Generate d Referral 12/22/2021 01/21/2023 1 1 Reason Comments Spirometry Specialty Diagnoses / Procedures Referred By Contac t Referred To Contact [facility] Diagnoses Shortness of breath Procedures SPIROMETRY WITH DILATOR IF OBSTRUCTED BRNCDILAT RSPSE SPMTRY PRE&POST-BRNCDILAT Marisol Olivares MD [address] [place] [address] [facility] [place] [address] [place] [address] Referral ID Status Reason Start Date Expiration Date V isits Requested Visits Authorized [id number] Closed Auto-Generate d Referral 02/09/2022 03/10/2023 1 1 Reason Comments New Patient 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) Reason Comments 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 - Other In response to order placed in EPIC Reason Comments Established Patient Reason Comments Follow-up MEDS/SHOULDER Reason Comments Established Patient Follow Up Specialty Diagnoses / Procedures Referred By Contac t Referred To Contact Neurology / NEUROLOGY Diagnoses Follow-up exam Follow up Procedures OFFICE/OUTPATIENT ESTABLISHED HIGH MDM 40 MIN EST NI PATIENT Self Ebony Trent DO [address] [place] [address] Referral ID Status Reason Start Date Expiration Date Visits Requested Visits Authorized [id number] Authorized Financial Clearance Not Required Patient Cleared - INN Insurance Found 05/01/2024 08/11/2024 99 [phone] Specialty Diagnoses / Procedures Referred By Contac t Referred To Contact CT IMAGING Diagnoses Memory loss Procedures CT BRAIN WO IVCON CT HEAD/BRAIN W/O CONTRAST MATERIAL Ebony Trent DO [address] [place] [address] [facility] [place] [address] Referral ID Status Reason Start Date Expiration Date V isits Requested Visits Authorized [id number] Closed Auto-Generate d Referral 05/04/2024 06/03/2025 1 1 Reason Comments Med Refill Specialty Diagnoses / Procedures Referred By Contac t Referred To Contact Diagnoses Memory loss Procedures NEUROPSYCHOLOGICAL TESTING CONSULT NEUROBEHAVIORAL STATUS XM PHYS/QHP 1ST HOUR NEUROPSYCHOLOGICAL TST EVAL PHYS/QHP 1ST HOUR NEUROPSYCHOLOGICAL TST EVAL PHYS/QHP EA ADDL HR PSYCL/NRPSYCL TST TECH 2+ TST 1ST 30 MIN PSYCL/NRPSYCL TST TECH 2+ TST EA ADDL 30 MIN Mandeep Ebony Black, DO [address] [place] [address] Referral ID Status Reason Start Date Expiration Date Visits Requested Visits Authorized [id number] Authorized PCP Requested Referral 05/04/2024 05/04/2025 1 3 Reason Comments Hypertension Reason Comments Follow-up Reason Comments Neck Pain Care Teams (unrecognized sec tion and content) Customizer Relationship Specialty Start Date End Date [facility] [address] [place] [address] [place] Referring Team Psychiatry 12/21/21 Customizer Relationship Specialty Start Date End Date [facility] [address] [place] [address] NI Referring Team Psychiatry 12/21/21 Customizer Relationship Specialty Start Date End Date [facility] [address] [place] [address] NI Referring Team Psychiatry 12/21/21 Customizer Relationship Specialty Start Date End Date [facility] [address] [place] [address] NI Referring Team Psychiatry 12/21/21 Customizer Relationship Specialty Start Date End Date [facility] [address] [place] [address] NI Referring Team Psychiatry 12/21/21 Customizer Relationship Specialty Start Date End Date [facility] [address] [place] [address] NI Referring Team Psychiatry 12/21/21 Customizer Relationship Specialty Start Date End Date [facility] [address] [place] [address] [place] Referring Team Psychiatry 12/21/21 Team Status: Inactive Member Role Status Dates Corona Monroe MD Attending Provider Active Daria Cardoza , Primary Care Provider Active Team Status: Active Member Role Status Dates Daria Cardoza DO Primary Care Provider Active Customizer Relationship Specialty Start Date End Date Thomas Hurtado [address] [place] [address] [place] Referring Team Psychiatry 12/21/21 Customizer Relationship Specialty Start Date End Date Shaikh Grimes MD PCP - General Internal Medicine 08/12/22 Team Status: Active Member Role Status Dates NON STAFF Primary Care Provider Active Team Status: Inactive Member Role Status Dates NON STAFF Primary Care Provider Active Start: March 31, 2024 End: March 31, 2024 Lisseth Toscano MD Attending Provider Active Star t: March 31, 2024 End: March 31, 2024 Customizer Relationship Specialty Start Date End Date Thomas Hurtado MD [address] [place] [address] NI Referring Team Psychiatry 12/21/21 Customizer Relationship Specialty Start Date End Date Thomas Hurtado MD [address] [place] [address] NI Referring Team Psychiatry 12/21/21 Customizer Relationship Specialty Start Date End Date Shaikh Grimes MD [address] [place] [address] PCP - [employer] 10/11/23 Jose Beckford MD [address] [place] [address] PCP - General Family Medicine 06/09/24 Jayy Coronado NP [address] [place] [address] Nurse Practitioner Family Medicine 06/09/24 Customizer Relationship Specialty Start Date End Date Shaikh Grimes MD [address] [place] [address] PCP - [employer] 10/11/23 Jose Beckford MD [address] [place] [address] PCP - General Family Medicine 06/09/24 Jayy Coronado NP [address] [place] [address] Nurse Practitioner Family Medicine 06/09/24 Customizer Relationship Specialty Start Date End Date Shaikh Grimes MD [address] [place] [address] PCP - [employer] 10/11/23 Jose Beckford MD [address] [place] [address] PCP - General Family Medicine 06/09/24 Jayy Coronado NP [address] [place] [address] Nurse Practitioner Family Medicine 06/09/24 Vannessa Russell MA Family Medicine 06/17/24 06/18/24 Customizer Relationship Specialty Start Date End Date Shaikh Grimes MD [address] [place] [address] PCP - [employer] 10/11/23 Jose Beckfodr MD [address] [place] [address] PCP - General Family Medicine 06/09/24 Jayy Coronado NP [address] [place] [address] Nurse Practitioner Family Medicine 06/09/24 Customizer Relationship Specialty Start Date End Date Shaikh Grimes MD [address] [place] [address] PCP - [employer] 10/11/23 Jose Beckford MD [address] [place] [address] PCP - General Family Medicine 06/09/24 Jayy Coronado NP [address] [place] [address] Nurse Practitioner Family Medicine 06/09/24 Customizer Relationship Specialty Start Date End Date Shaikh Grimes MD [address] [place] [address] PCP - General Internal Medicine 08/12/22 Shaikh Grimes MD [address] [place] [address] PCP - [employer] 10/11/23 Customizer Relationship Specialty Start Date End Date Thomas Hurtado MD [address] [place] [address] NI Referring Team Psychiatry 12/21/21 Customizer Relationship Specialty Start Date End Date Jose Beckford MD [address] [place] [address] PCP - General Family Medicine 06/09/24 Jayy Coronado NP [address] [place] [address] Nurse Practitioner Family Medicine 06/09/24 Customizer Relationship Specialty Start Date End Date Jose Beckford MD [address] [place] [address] PCP - General Family Medicine 06/09/24 Jayy Coronado NP [address] [place] [address] Nurse Practitioner Family Medicine 06/09/24 Customizer Relationship Specialty Start Date End Date Thomas Hurtado MD [address] [place] [address] NI Referring Team Psychiatry 12/21/21 Team Status: Inactive Member Role Status Dates NON STAFF Primary Care Provider Active Start: October 27, 2024 End: October 27, 2024 Lisseth Toscano MD Attending Provider Active Star t: October 27, 2024 End: October 27, 2024 Customizer Relationship Specialty Start Date End Date Jose Beckford MD [address] [place] [address] PCP - General Family Medicine 06/09/24 Jayy Coronado NP [address] [place] [address] Nurse Practitioner Family Medicine 06/09/24 Customizer Relationship Specialty Start Date End Date Jose Beckford MD [address] [place] [address] PCP - General Family Medicine 06/09/24 Jayy Coronado NP [address] [place] [address] Nurse Practitioner Family Medicine 06/09/24 Customizer Relationship Specialty Start Date End Date Jose Beckford MD [address] [place] [address] PCP - General Family Medicine 06/09/24 Jayy Coronado NP [address] [place] [address] Nurse Practitioner Family Medicine 06/09/24 Customizer Relationship Specialty Start Date End Date Jose Beckford MD [address] [place] [address] PCP - General Family Medicine 06/09/24 Jayy Coronado NP [address] [place] [address] Nurse Practitioner Family Medicine 06/09/24 Customizer Relationship Specialty Start Date End Date Jose Beckford MD [address] [place] [address] PCP - General Family Medicine 06/09/24 Jayy Coronado NP [address] [place] [address] Nurse Practitioner Family Medicine 06/09/24 Customizer Relationship Specialty Start Date End Date Jose Beckford MD [address] [place] [address] PCP - General Family Medicine 06/09/24 Jayy Coronado NP [address] [place] [address] Nurse Practitioner Family Medicine 06/09/24 Customizer Relationship Specialty Start Date End Date Jose Beckford MD [address] [place] [address] PCP - General Family Medicine 06/09/24 Jayy Coronado NP [address] [place] [address] Nurse Practitioner Family Medicine 06/09/24 Customizer Relationship Specialty Start Date End Date Jose Beckford MD [address] [place] [address] PCP - General Family Medicine 06/09/24 Jayy Coronado NP [address] [place] [address] Nurse Practitioner Family Medicine 06/09/24 Customizer Relationship Specialty Start Date End Date Jose Beckford MD [address] [place] [address] PCP - General Family Medicine 06/09/24 Jayy Coronado NP [address] [place] [address] Nurse Practitioner Family Medicine 06/09/24 Customizer Relationship Specialty Start Date End Date Jose Beckford MD [address] [place] [address] PCP - General Family Medicine 06/09/24 Jayy Coronado NP [address] [place] [address] Nurse Practitioner Family Medicine 06/09/24 Customizer Relationship Specialty Start Date End Date Jose Beckford MD [address] [place] [address] PCP - General Family Medicine 06/09/24 Jayy Coronado NP [address] [place] [address] Nurse Practitioner Family Medicine 06/09/24 Team Status: Inactive Member Role Status Dates NON STAFF Primary Care Provider Active Start: January 19, 2025 End: January 19, 2025 Lisseth Toscano MD Attending Provider Active Star t: January 19, 2025 End: January 19, 2025 Customizer Relationship Specialty Start Date End Date Susan Watson, NATUROPATHIC DOCTOR-ANALYTICAL RESEARCH PROGRAM MANAGER [address] [place] [address] PCP - General Nurse Practitioner 01/11/25 Goals (unrecognized section and content) Goals may [...] BE BASED ON THE PRIMARY CLINICAL RECORDS. [facility]. provides no warranty or guarantee of the accuracy or completeness of information in this document.
--- OUTSIDE RECORDS SUMMARY | 2025-02-18 07:11 | XMS_ITS | Encounter Summary ---
Author Organization [facility] Address [address] [place] [address] Care Team Providers Care Shearing Shed Hand Name Role Phone Thomas Hurtado MD Unavailable Source Comments In the event this information is protected by the Federal Confidentiality of Alcohol and Drug AbusePatient Records regulations: The Federal rules restrict any use of the information to criminally investigate or prosecute any alcohol or drug abuse patient.[facility] Encounter Details Date Type Department Care Team ([facility] st Contact Info) Description 03/05/2022 Patient Msg Neurology [address] [id number] Provider, [facility] Sleep Study Confirmation Social History Tobacco Use Types Packs/Day Years Used Date Smoking Tobacco: Never Smokeless Tobacco: Current Chew PHQ-2 Answer Date Recorded PHQ-2 score 6 12/22/2021 Area Deprivation Index Answer Date Brandon rded National Score (1-100), lower number is lower ri sk 87 01/02/2022 State Score (1-10), lower number is lower risk N ot on file 01/02/2022 Data from: https://www.neighborhoodatlas.medicine.[facility].edu/. Last address used for calculation [address] 01/02/2022 Sex and Gender Information Value Date Recorded Sex Assigned at Not on file Legal Sex Male 11:57 AM EDT Gender Identity Not on file Sexual Orientation Not on file COVID-19 Exposure Response Date Recorded In the last 10 days, have yo u been in contact with someone who was confirmed or suspected to have Coronavirus/COVID-19? No / Unsure 02/21/2022 9:53 AM EDT documented as of this encounter Plan of Treatment Upcoming Encounters Date Type Department Care Team (Late st Contact Info) Description 04/16/2025 11:00 AM EDT Office Visit Neurology [address] [place] [address] Ebony Henderson DO [address] [place] [address] 6 month follow up documented as of this encounter Visit Diagnoses Not on filedocumented in this encounter Care Teams Shearing Shed Hand Relationship Specialty Start Date End Date Thomas Hurtado MD [address] [place] [address] NI Referring Team Psychiatry 12/21/21 documented as of this encounter
--- OUTSIDE RECORDS SUMMARY | 2025-02-18 07:11 | XMS_ITS | Clinical Summary ---
Author Organization [facility] Healthcare Address [address] [place] [address] Care Team Providers Care Inpatient Nursing Aide Name Role Phone Jose Beckford MD Primary Care Provider [phone] Cherelle Coronado NP Unavailable [phone] Allergies No known active allergies Medications albuterol HFA 90 mcg/act inhaler Inhale 2 puffs every 4 (four) hours if needed for wheezing Active nitroglycerin (Nitrostat) 0.4 MG SL tabletIndications:C oronary artery disease involving ewiiaapaayp coronary artery of ewiiaapaayp heart without angina pectoris Place 1 tablet (0.4 mg) under the tongue every 5 (five) minutes if needed for chest pain 30 tablet 4 Active amLODIPine (Norvasc) 5 MG tabletIndications:P rimary hypertension Take 1 tablet (5 mg) by mouth every 12 (twelve) hours 180 tablet 1 5 03/24/20 25 Active aspirin 81 MG EC tabletIndications:C oronary artery disease involving ewiiaapaayp coronary artery of ewiiaapaayp heart without angina pectoris Take 1 tablet (81 mg) by mouth in the morning. 90 tablet 1 5 03/24/20 25 Active atorvastatin (Lipitor) 80 MG tabletIndications:O ther hyperlipidemia Take 1 tablet (80 mg) by mouth at bedtime 90 tablet 1 5 03/24/20 25 Active baclofen (Lioresal) 10 MG tabletIndications:N juan alberto pain Take 1 tablet (10 mg) by mouth as needed at bedtime for muscle spasms for up to 15 days 15 tablet 5 Active buPROPion XL (Wellbutrin XL) 300 MG 24 hr tabletIndications:R ecurrent major depression in partial remission Take 1 tablet (300 mg) by mouth in the morning. Do not crush, chew, or split. 90 tablet 03/24/20 25 Active busPIRone (Buspar) 15 MG tabletIndications:R ecurrent major depression in partial remission Take 1 tablet (15 mg) by mouth in the morning and 1 tablet (15 mg) before bedtime. 180 tablet 03/24/20 25 Active clopidogrel (Plavix) 75 MG tabletIndications:C oronary artery disease involving ewiiaapaayp coronary artery of ewiiaapaayp heart without angina pectoris Take 1 tablet (75 mg) by mouth Daily 90 tablet 03/24/20 25 Active famotidine (Pepcid) 20 MG tabletIndications:G astroesophageal reflux disease without esophagitis Take 1 tablet (20 mg) by mouth in the morning and 1 tablet (20 mg) before bedtime. 180 tablet 03/24/20 25 Active fenofibrate micronized (Antara) 43 MG capsuleIndications: Other hyperlipidemia Take 1 capsule (43 mg) by mouth in the morning. Take with meals. 90 capsule 03/24/20 25 Active Fluticasone-Umeclid in-Vilant (Trelegy Ellipta) 100-62.5-25 MCG/ACT aerosol powderIndications:C hronic obstructive pulmonary disease, unspecified COPD type (HCC) Inhale 1 puff Daily Rinse mouth after use. Inhale 1 puff Daily 180 each 5 03/24/20 25 Active isosorbide mononitrate ER (Imdur) 60 MG 24 hr tabletIndications:P rimary hypertension,Celeste ry artery disease involving ewiiaapaayp coronary artery of ewiiaapaayp heart without angina pectoris Take 1 tablet (60 mg) by mouth Daily Do not crush or chew. 90 tablet 03/24/20 25 Active lisinopril 10 MG tabletIndications:P rimary hypertension Take 1 tablet (10 mg) by mouth Daily 90 tablet 5 03/24/20 25 Active metoprolol tartrate (Lopressor) 50 MG tabletIndications:P rimary hypertension,Celeste ry artery disease involving ewiiaapaayp coronary artery of ewiiaapaayp heart without angina pectoris Take 1 tablet (50 mg) by mouth in the morning and 1 tablet (50 mg) before bedtime. 180 tablet 1 5 03/24/20 25 Active sertraline (Zoloft) 100 MG tabletIndications:R ecurrent major depression in partial remission,EDITH (generalized anxiety disorder) Take 2 tablets (200 mg) by mouth Daily 180 tablet 1 5 03/24/20 25 Active traZODone (Desyrel) 100 MG tabletIndications:R ecurrent major depression in partial remission,EDITH (generalized anxiety disorder) Take 1 tablet (100 mg) by mouth at bedtime 90 tablet 1 5 03/24/20 25 Active OLANZapine (ZyPREXA) 5 MG tabletIndications:G AD (generalized anxiety disorder) Take 1 tablet (5 mg) by mouth at bedtime 30 tablet 1 5 Active predniSONE (Deltasone) 20 MG tabletIndications:N juan alberto pain Twice a day for 3 days, then once a day for 3 days, take with food 9 tablet 5 Active Active Problems Problem Noted Date Diagnosed Date Cervical spondylosis 01/19/2025 Neck pain 11/19/2024 Assessment & Plan (01/19/2025 2:29 PM EDT): Last appt: recommended Ice to affected area 4-5 times daily, Stretching exercises given, Trial baclofen at HS, may try 1/2 pill, No NSAID d/t renal function Had plain film xray 01/11/2025 mod-severe deg changes C5-C6 and C6-C7 Refer to pain mgmt Trial prednisone taper Assessment & Plan (11/19/2024 2:10 PM EDT): Ice to affected area 4-5 times daily Stretching exercises given Trial baclofen at HS, may try 1/2 pill No NSAID d/t renal function Call office in 2 weeks if not better Seems more muscle relatated Frequent falls 06/17/2024 Functional gait abnormality 06/17/2024 Assessment & Plan (06/22/2024 11:34 AM EST): Dizziness/Lightheadedness with ambulation. Reports this does NOT [...] through to [facility]. Will send referral today. Chronic obstructive pulmonary disease, unspecifi ed 03/11/2024 Assessment & Plan (11/19/2024 6:59 AM EDT): Is prescribed trelegy inhaler Assessment & Plan (10/08/2024 5:49 PM EST): Current meds: albuterol, trelegy Cannot afford trelegy, but does help breathing #2 samples trelegy: 100/25, XM5N, exp 01/04 Assessment & Plan (03/11/2024 2:27 PM EDT): Well controlled on Trelegy. No recent exacerbations. Uses albuterol as needed. Primary hypertension 03/11/2024 Assessment & Plan (01/19/2025 6:47 AM EDT): Please check blood pressure daily and record DASH diet Limit caffeine Take medication as directed Contact office if chest pain, pressure, dizziness, shortness of breath, swelling legs Recommend slow position changes Current meds; raulito, b kelsy, calcium channel kelsy, imdur Assessment & Plan (11/19/2024 7:00 AM EDT): Please check blood pressure daily and record DASH diet Limit caffeine Take medication as directed Contact office if chest pain, pressure, dizziness, shortness of breath, swelling legs Recommend slow position changes Current meds; raulito, b kelsy, calcium channel kelsy, imdur Assessment & Plan (10/08/2024 7:08 AM EST): Please check blood pressure daily and record DASH diet Limit caffeine Take medication as directed Contact office if chest pain, pressure, dizziness, shortness of breath, swelling legs Recommend slow position changes Current meds: amlodipine, imdur, b kelsy Assessment & Plan (06/22/2024 11:33 AM EST): Currently taking amlodipine Imdur Metoprolol Checks BP at home; Averages are 130's/70's. Denies orthostatic changes, dizziness, cough, shortness of breath, swelling in extremities. Continue current regimen. Given BP log, advised pt to record BP and bring log back with them to next visit. Assessment & Plan (03/11/2024 2:27 PM EDT): At goal. C/w home medications. No adverse effects Closed nondisplaced fracture of greater tuberosity of left humerus with routine healing 09/19/2023 Coronary artery disease invo lving ewiiaapaayp coronary artery of ewiiaapaayp heart without angina pectoris 09/19/2023 Assessment & Plan (11/19/2024 7:00 AM EDT): Established with [facility] Cardiology Current meds: asa, amlodipine, statin, plavix, imdur, raulito, b kelsy, and prn nitro Assessment & Plan (10/08/2024 5:49 PM EST): Current meds: plavix, amlodipine, statin, b kelsy, nitroglycerin prn No acute symptoms, cont with [facility] Cardiology Assessment & Plan (03/11/2024 2:27 PM EDT): S/p CABG. On ASA, BB, Imdur, plavix, statin Denies CP, SOB, palpitations. Following [facility] cardiology. Assessment & Plan (09/19/2023 5:32 PM EST): S/p CABG. On ASA, BB, Imdur, plavix, statin Denies CP, SOB, palpitations. Following [facility] cardiology. Mixed hyperlipidemia 09/19/2023 Assessment & Plan (10/08/2024 7:11 AM EST): On statin and fenofibrate Check labs yearly and prn dose changes Assessment & Plan (06/22/2024 11:33 AM EST): Currently taking Atorvastatin 80mg Denies any myalgias. Continue current regimen. Assessment & Plan (03/11/2024 2:28 PM EDT): Check Lipid panel. Assessment & Plan (09/19/2023 5:35 PM EST): Check Lipid panel. Chronic kidney disease, stage 4 (severe) 024 Assessment & Plan (01/19/2025 6:47 AM EDT): Continue with Nephrology Check labs yearly and prn Assessment & Plan (11/19/2024 7:05 AM EDT): Continue with Nephrology Check labs yearly and prn Assessment & Plan (10/08/2024 5:50 PM EST): Continue with Nephrology Assessment & Plan (06/22/2024 11:33 AM EST): Following with Nephrology. Avoid nephrotoxic agents. Continue to monitor. Assessment & Plan (03/11/2024 2:28 PM EDT): Following nephrology now. Renal function stable Assessment & Plan (09/19/2023 5:33 PM EST): Has an appointment with Nephrology. Avoid NSAIDS. C/w current regimen. H/O: lung cancer 09/19/2023 Gastroesophageal reflux disease without esophagi tis 09/19/2023 Assessment & Plan (11/19/2024 7:01 AM EDT): Recommendations: freq small meals, nothing to eat or drink at least 2 hours prior to bed, limit caffeine, alcohol, as well as spicy foods Meds to limit or avoid if possible: NSAIDS Elevate HOB if possible Current meds: famotidine Assessment & Plan (10/08/2024 7:09 AM EST): Recommendations: freq small meals, nothing to eat or drink at least 2 hours prior to bed, limit caffeine, alcohol, as well as spicy foods Meds to limit or avoid if possible: NSAIDS Elevate HOB if possible Current med: pepcid Assessment & Plan (03/11/2024 2:27 PM EDT): Symptoms controlled with pepcid EDITH (generalized anxiety disorder) 09/19/2023 Assessment & Plan (01/19/2025 6:49 AM EDT): Current meds: wellbutrin, buspar, sertraline and olanzapine Assessment & Plan (11/19/2024 2:12 PM EDT): Current meds: wellbutrin, buspar, sertraline Pt's daughter is a sch RN LPN LVN, I have given daughter present today options for addressing anxiety: Buspar TID, olanzapine at 2.5mg or quetiapine She will talk with sister and go from there Assessment & Plan (10/08/2024 5:50 PM EST): Current meds: wellbutrin XL, buspar, sertraline, and trazodone EDITH 7=4 Had recent neuropsych testing has fu appt in a few weeks Assessment & Plan (03/11/2024 2:28 PM EDT): Stable mood. C/w current regimen. Assessment & Plan (09/19/2023 5:35 PM EST): Improved now. C/w current regimen. Traumatic complete tear of left rotator cuff 03/2024 Assessment & Plan (09/19/2023 5:34 PM EST): Noted on MRI - following Orthopedics. Patient has a follow up appointment next week and it appears that he will likely need surgery for it. MCI (mild cognitive impairment) 04/12/2022 Assessment & Plan (01/19/2025 6:48 AM EDT): Cont with neurology and neuropsych testing Assessment & Plan (10/08/2024 5:51 PM EST): Cont with neurology and neuropsych testing Atherosclerosis of arteries of extremities 08/25 Assessment & Plan (11/19/2024 7:00 AM EDT): Asa, plavix, statin Intermittent claudication 08/25/2012 Migraine 07/18/2012 Resolved Problems Problem Noted Date Diagnosed Date Resolved Date Recurrent major depression i n partial remission 03/11/2024 03/11/2024 Recurrent major depressive d isorder, in full remission 04/12/2022 11/19/2024 Assessment & Plan (10/08/2024 5:51 PM EST): Current med: wellbutrin, sertralin, and trazodone PHQ 9=9 Assessment & Plan (03/11/2024 2:28 PM EDT): Symptoms improved and well controlled since Zoloft was increased to 200 mg. C.w wellbutrin, zoloft, buspirone, trazodone and olanzapine. No SI/HI. Assessment & Plan (03/11/2024 2:21 PM EDT): >>ASSESSMENT AND PLAN FOR RECURRENT MAJOR DEPRESSION IN PARTIAL REMISSION (HCC) ([facility]/HCC) WRITTEN ON 09/19/2023 5:35 PM BY SHAIKH MOIZ MD Symptoms improved and well controlled since Zoloft was increased to 200 mg. C.w wellbutrin, zoloft, buspirone, trazodone and olanzapine. No SI/HI. Encounters Date Type Department Care Team Description 01/19/2025 1:00 PM EDT Office Visit [facility] [address] [place] [address] Susan Watson NP Cervical spondylosis (Primary Dx); Neck pain; Primary hypertension ; Chronic kidney disease, stage 4 (severe) (HCC); EDITH (generalized anxiety disorder) ; H/O: lung cancer; MCI (mild cognitive impairment) 01/19/2025 Bamboo flowsheet [facility] [address] [place] [address] Susan Watson NP 01/12/2025 External Result Encounter [facility] [address] [place] [address] Susan Watson NP 01/07/2025 Orders Only [facility] [address] [place] [address] Susan Watson NP Neck pain (Primary Dx) 01/07/2025 Telephone [facility] [address] [place] [address] Susan Watson NP Lab Orders 12/24/2024 Refill [facility] [address] [place] [address] Susan Watson NP Primary hypertension ; Other hyperlipidemia ; Neck pain; Recurrent major depression in partial remission ; Coronary artery disease involving ewiiaapaayp coronary artery of ewiiaapaayp heart without angina pectoris ; Gastroesophageal reflux disease without esophagitis; Chronic obstructive pulmonary disease, unspecified COPD type (HCC); EDITH (generalized anxiety disorder) 12/24/2024 Telephone [facility] [address] [place] [address] Susan Watson NP 12/07/2024 Refill [facility] [address] [place] [address] Susan Watson NP Other hyperlipidemia ; Coronary artery disease involving ewiiaapaayp coronary artery of ewiiaapaayp heart without angina pectoris ; Primary hypertension ; Recurrent major depression in partial remission ; EDITH (generalized anxiety disorder) 12/07/2024 Telephone [facility] [address] [place] [address] Susan Watson NP 12/01/2024 Refill [facility] [address] [place] [address] Susan Watson NP EDITH (generalized anxiety disorder) (Primary Dx) 12/01/2024 Telephone [facility] [address] [place] [id number] Susan Watson NP 11/19/2024 1:00 PM EDT Office Visit [facility] [address] [place] [address] Susan Watson NP Neck pain (Primary Dx); Primary hypertension ; Chronic kidney disease, stage 4 (severe) (HCC); EDITH (generalized anxiety disorder) ; Functional gait abnormality; MCI (mild cognitive impairment) 11/19/2024 Bamboo flowsheet [facility] [address] [place] [id number] Susan Watson NP from Last 3 Months Immunizations Immunization Administration Dates Next Due Influenza, High-dose Seasona l, Quadrivalent, Preservative Free 05/23/2021,08/03/2020 Pfizer Purple Cap SARS-CoV-2 Vaccination 021,11/08/2020,10/19/2020 Pneumococcal Conjugate PCV 13 08/27/2019 Pneumococcal Polysaccharide PPSV23 08/03/2020 Family History Medical History Relation Name Comments Diabetes Mother Heart disease Mother Hypertension Mother Diabetes Sister Relation Name Status Comments Father Mother Sister x2 Social History Tobacco Use Types Packs/Day Years Used Date Smoking Tobacco: Former Cigarettes Passive Smoke Exposure: Never Smokeless Tobacco: Never Tobacco Cessation:Counseling Given: Not Answered Alcohol Use Standard Drinks/Week [...] How often do you attend chur or mosque services? Never 07/22/2023 Do you belong to any clubs o r organizations such as nondenominational groups, unions, fraternal or athletic groups, or [...] Recorded Patient Health Questionnaire-2 Score 0 03/11/2024 [facility] Answer Date Recorded [...] Sign Reading Time Taken Comments Blood Pressure 130/70 01/19/2025 1:06 PM EDT Pulse 66 01/19/2025 1:06 PM EDT Temperature 36.9 C (98.5 F) 01/19/2025 1:06 PM EDT Respiratory Rate 18 01/19/2025 1:06 PM EDT Oxygen Saturation 96% 01/19/2025 1:06 PM EDT Inhaled Oxygen Concentration - - Weight 75.2 kg (165 lb 12.8 oz) 01/19/2025 1:06 PM EDT Height 172.7 cm (5' 8 ) 06/17/2024 1:13 PM EST Body Mass Index 25.21 06/17/2024 1:13 PM EST Plan of Treatment Upcoming Encounters Date Type Department Care Team (Late st Contact Info) Description 03/01/2025 1:40 PM EDT Office Visit [facility] [address] [place] [address] Susan Watson NP [address] [place] [address] Health Maintenance Due Date Last Done Comments CT Colonography 1953 FIT-DNA 1953 FIT 1953 FOBT 1955 Sigmoidoscopy 1955 Influenza Vaccine (#1) 2025 05/23/2021, 2019 Colonoscopy 06/21/2031 06/21/2021 Colorectal Cancer Screening 06/21/2031 Pneumococcal Vaccine: 65+ Years Completed 0, 08/27/2019 Procedures Procedure Name Priority Date/Time Associated Diagnosis Comments XR CERVICAL SPINE 2-3 VIEWS 01/12/2025 12:58 AM EDT COLONOSCOPY Routine 06/21/2021 12:00 PM EST Encounter for screening for malignant neoplasm of colon from Last 3 Months or Most Recently Relevant to Health Maintenance Results * XR cervical spine 2 or 3 views (01/12/2025 12:58 AM EDT) Anatomical Region Laterality Modality Spine, C-spine Radiographic Devika ging 01/12/2025 12:5 8 AM EDT Narrative 01/12/2025 12:57 AM EDT THIS EXAM WAS PERFORMED AT [facility] XR SPINE CERVICAL 3 VWS OR LESS [...] MD on 01/12/2025 12:57 AM Procedure Note Radiology, Radiologist, - 01/12/2025 THIS EXAM WAS PERFORMED AT [facility] XR SPINE CERVICAL 3 VWS OR LESS [...] MD on 01/12/2025 12:57 AM Susan Watson RN LPN LVN IMG XR PROCEDURES Final Result * Colonoscopy (06/21/2021 12:00 PM EST) Anatomical Region Laterality Modality Endoscopy 06/21/2021 12:0 0 PM EST Narrative 06/21/2021 12:00 PM EST PERFORMED AT [facility] LOCATION:[id number] Procedure Note CONVERSION, GENERIC - 12/26/2022 PERFORMED AT [facility] LOCATION:[id number] Pop Borrego DO ENDOSCOPY PROCEDURE ORDERABLES Final Result from Last 3 Months or Most Recently Relevant to Health Maintenance Insurance MEDICARE [facility] MEDICARE Care Teams Inpatient Nursing Aide Relationship Specialty Start Date End Date Jose Beckford MD [address] [place] [phone] PCP - General Family Medicine 06/09/24 Cherelle Coronado NP [address] [place] [address] Nurse Practitioner Family Medicine 06/09/24
--- OUTSIDE RECORDS SUMMARY | 2025-02-18 07:11 | XMS_ITS | Encounter Summary ---
Author Organization [facility] Address [address] [place] [address] Care Team Providers Care Strategic Sourcing Consultant Name Role Phone Shaikh OIN Grimes Primary Care Provider [phone] Shaikh ION Grimes Unavailable [phone] Jose Beckford MD Primary Care Provider [phone] Cherelle Coronado NP Unavailable [phone] Vannessa Russell MA Unavailable [phone] Encounter Details Date Type Department Care Team (Late st Contact Info) Description 09/02/2023 Orders Only [facility] [address] [place] [address] Carlyle Mcgowan MD [address] [place] [address] [place] [address] Social History Tobacco Use Types Packs/Day Years [...] How often do you attend chur or anabaptism services? Never 07/22/2023 Do you belong to any clubs o r organizations such as restorationist groups, unions, fraternal or athletic groups, or [...] medical care, and heating? Somewhat hard 07/22/2023 [facility] - [...] place to sleep or slept in a mcc (including now)? No 07/22/2023 Sex and Gender [...] Office Visit [facility] [address] [place] [address] Susan Watson NP [address] [place] [address] documented as of this encounter Procedures Procedure Name Priority Date/Time Associated Diagnosis Comments XR SHOULDER 2+ VIEWS LEFT Routine 08/26/2023 3:11 PM EST documented in this encounter Results * XR shoulder 2+ views left (08/26/2023 3:11 PM EST) Anatomical Region Laterality Modality Upper Extremities, Shoulder Left Radi ographic Imaging us Carlyle Mcgowan MD IMG XR PROCEDURES Final Res ult documented in this encounter Visit Diagnoses Not on filedocumented in this encounter Care Teams Strategic Sourcing Consultant Relationship Specialty Start Date End Date Shaikh Grimes MD [address] [place] [phone] PCP - General Internal Medicine 08/12/22 06/08/24 Shaikh Grimes MD [address] [place] [address] PCP - [employer] 10/11/23 08/11/24 Jose Beckford MD [address] [place] [address] PCP - General Family Medicine 06/09/24 Cherelle Coronado NP [address] [place] [address] Nurse Practitioner Family Medicine 06/09/24 Vannessa Russell MA [address] [place] [address] Family Medicine 06/17/24 06/18/24 documented as of this encounter
--- OUTSIDE RECORDS SUMMARY | 2025-02-18 07:11 | XMS_ITS | Encounter Summary ---
Author Organization [facility] Address [address] [place] [address] Care Team Providers Care Director Of Valuation Name Role Phone Shaikh ION Grimes Primary Care Provider [phone] Shaikh ION Grimes Unavailable [phone] Jose Beckford MD Primary Care Provider [phone] Cherelle Coronado NP Unavailable Vannessa Russell MA Unavailable [phone] Reason for Visit * Reason Comments Med Refill Encounter Details Date Type Department Care Team (Late st Contact Info) Description 03/14/2024 [facility] [address] [place] [address] Shaikh Grimes MD [address] [place] [address] EDITH (generalized anxiety disorder) ; Recurrent major depression in partial remission Social [...] How often do you attend chur or anabaptist services? Never 07/22/2023 Do you belong to any clubs o r organizations such as roman catholic groups, unions, fraternal or athletic groups, or [...] Recorded Patient Health Questionnaire-2 Score 0 03/11/2024 [facility] Questionnaire Answer Date [...] place to sleep or slept in a half-way (including now)? No 07/22/2023 Sex and Gender [...] Office Visit [facility] [address] [place] [address] Susan Watson NP [address] [place] [phone] documented as of this encounter Visit Diagnoses Diagnosis EDITH (generalized anxiety disorder) Generalized anxiety disorder Recurrent major depression in partial remission Major depressive disorder, recurrent episode, in partial or unspecified remission documented in this encounter Care Teams Director Of Valuation Relationship Specialty Start Date End Date Shaikh Grimes MD [address] [place] [address] PCP - General Internal Medicine 08/12/22 06/08/24 Shaikh Grimes MD [address] [place] [address] PCP - [employer] 10/11/23 08/11/24 Jose Beckford MD [address] [place] [address] PCP - General Family Medicine 06/09/24 Cherelle Coronado NP [address] [place] [address] Nurse Practitioner Family Medicine 06/09/24 Vannessa Russell MA [address] [place] [address] Family Medicine 06/17/24 06/18/24 documented as of this encounter
--- OUTSIDE RECORDS SUMMARY | 2025-02-18 07:11 | XMS_ITS | Clinical Summary ---
Author Organization [facility] Address [address] [place] [address] Care Team Providers Care Grinder Mill Operator Name Role Phone Susan Watson MD Primary Care Provider [phone] Allergies No known active allergies Medications albuterol 90 mcg/actuation inhaler INHALE 1 PUFF BY MOUTH EVERY 4 HOURS NEEDED 2 Active amLODIPine (Norvasc) 5 mg tablet Take 1 tablet by mouth in the morning. Active aspirin 81 mg EC tablet Take 1 tablet by mouth in the morning. Active atorvastatin (Lipitor) 80 mg tablet Take 80 mg by mouth at bedtime. 5 04/06/20 25 Active buPROPion XL (Wellbutrin XL) 300 mg 24 hr tablet Use 1 tablet in the mouth or throat in the morning. Active busPIRone (Buspar) 15 mg tablet Take 1 tablet by mouth in the morning and at bedtime. Active famotidine (Pepcid) 20 mg tablet Take 20 mg by mouth twice a day. 5 Active fenofibrate micronized (Antara) 43 mg capsule Take 1 capsule by mouth in the morning and at bedtime. Active fluticasone-umec lidin-vilanter (Trelegy Ellipta) 100-62.5-25 mcg blister with device Inhale 1 puff in the morning. 4 Active isosorbide mononitrate ER (Imdur) 60 mg 24 hr tablet Take 1 tablet by mouth in the morning. Active lisinopril 10 mg tablet Take 10 mg by mouth in the morning. Active metoprolol succinate XL (Toprol-XL) 50 mg 24 hr tablet Take 1 tablet by mouth in the morning and at bedtime. Active nitroglycerin (Nitrostat) 0.[address] 1 tablet by sublingual route as needed. Active sertraline (Zoloft) 100 mg tablet Take 1.5 tablets by mouth in the morning. Active traZODone (Desyrel) 150 mg tablet Take 1 tablet by mouth at bedtime. Active Active Problems Problem Noted Date Diagnosed Date Frequent falls 06/17/2024 Functional gait abnormality 06/17/2024 Chronic obstructive pulmonary disease, unspecifi ed 03/11/2024 Chronic kidney disease, stage 4 (severe) 024 Closed nondisplaced fracture of greater tuberosity of left humerus with routine healing 09/19/2023 EDITH (generalized anxiety disorder) 09/19/2023 H/O: lung cancer 09/19/2023 Traumatic complete tear of left rotator cuff 03/2024 MCI (mild cognitive impairment) 04/12/2022 Recurrent major depression in partial remission 04/12/2022 Recurrent major depressive disorder, in full rem ission 04/12/2022 Hypertensive disorder 05/28/2014 Abnormal results of cardiovascular function stud ies 09/30/2013 Overview (10/13/2024): MILD INFERIOR AND ANTERIOR ISCHEMIA EF 52% Chest pain 09/18/2013 Dyspnea and respiratory abnormalities 09/18/2013 Overview (10/13/2024): 66 pk/yr history of smoking. Quit in 1994, when diagnosed with NSCLC and treated with RULobectomy and XRT. Also has extensive coronary disease, with CABG. Sees cardiology at [facility]. Anxiety, HTN, CKD IIIb. PCP started albuterol [...] tis 07/18/2012 Migraine 07/18/2012 Mixed hyperlipidemia 07/18/2012 Family History Medical History Relation Name Comments Diabetes Mother Relation Name Status Comments Mother Social History Tobacco Use Types Packs/Day Years Used Date Smoking Tobacco: Former Cigarettes Smokeless Tobacco: Never Tobacco Cessation:Counseling Given: Not Answered Alcohol Use Standard Drinks/Week Comments Not Currently 0 (1 standard drink = 0.6 oz pur e alcohol) [place] Safety & Environment Answer Date Rec orded Fear of Current or Ex-Partner Not on file Emotionally Abused Not on file 10/03/2023 Physically Abused Not on file 10/03/2023 Sexually Abused Not on file 10/03/2023 Physically or Sexually Abused Not on file Sex and Gender Information Value Date Recorded Sex Assigned at Not on file Legal Sex Male 10:15 PM EDT Gender Identity Not on file Sexual Orientation Not on file Last Filed Vital Signs Vital Sign Reading Time Taken Comments Blood Pressure 130/74 10/13/2024 1:38 PM EST Pulse 56 10/13/2024 1:38 PM EST Temperature - - Respiratory Rate - - Oxygen Saturation 95% 10/13/2024 1:38 PM EST Inhaled Oxygen Concentration - - Weight 77.1 kg (170 lb) 10/13/2024 1:38 PM EST Height 167.6 cm (5' 6 ) 10/13/2024 1:38 PM EST Body Mass Index 27.44 10/13/2024 1:38 PM EST Plan of Treatment Health Maintenance Due Date Last Done Comments CT Colonography 1955 FIT-DNA 1955 FIT 1955 FOBT 1955 Medicare Annual Wellness (AWV) 1955 Sigmoidoscopy 1955 Depression Screening 1965 Adult Tetanus 1975 Zoster Vaccines (1 of 2) 2003 Fall Risk Screening 2018 COVID-19 Vaccine (2023-2 5 season) 2024 08/06/2021, 11/08/2020, 10/19/2020 Influenza Vaccine (#1) 2025 , 08/03/2020 Colonoscopy 06/21/2031 06/21/2021 Colorectal Cancer Screening 06/21/2031 Pneumococcal Vaccine: 50+ Years Completed 08/03/2020, 08/27/2019 HIB Vaccines Aged Out No longer eligi ble based on patient's age to complete this topic HPV Vaccines Aged Out No longer eligi ble based on patient's age to complete this topic IPV Vaccines Aged Out No longer eligi ble based on patient's age to complete this topic Meningococcal B Vaccine Aged Out No l onger eligible based on patient's age to complete this topic Meningococcal Vaccine Aged Out No noe sierra eligible based on patient's age to complete this topic Rotavirus Vaccines Aged Out No longer eligible based on patient's age to complete this topic Insurance [employer] MEDICARE Care Teams Grinder Mill Operator Relationship Specialty Start Date End Date [facility] [place] [address] PCP - General Nurse Practitioner 10/13/24
--- OUTSIDE RECORDS SUMMARY | 2025-02-18 07:11 | XMS_ITS | Encounter Summary ---
Author Organization [facility] Address [address] [place] [address] Care Team Providers Care Senior Sql Server Developer Name Role Phone Jose Beckford MD Primary Care Provider [phone] Cherelle Coronado NP Unavailable Encounter Details Date Type Department Care Team ([facility] st Contact Info) Description 01/12/2025 External [facility] [address] [place] [address] Susan Watson NP [address] [place] [address] Social History Tobacco Use Types Packs/Day Years [...] often do you attend chur ch or mosque services? Never 07/22/2023 Do you belong to any clubs o r organizations such as samaritan groups, unions, fraternal or athletic groups, or [...] Recorded Patient Health Questionnaire-2 Score 0 03/11/2024 [facility] - Occupational Stress [...] Office Visit [facility] [address] [place] [address] Susan Watson NP [address] [place] [address] documented as of this encounter Procedures Procedure Name Priority Date/Time Associated Diagnosis Comments XR CERVICAL SPINE 2-3 VIEWS 01/12/2025 12:58 AM EDT documented in this encounter Results * XR cervical spine 2 or 3 views (01/12/2025 12:58 AM EDT) Anatomical Region Laterality Modality Spine, C-spine Radiographic Edvika ging 01/12/2025 12:5 8 AM EDT Narrative 01/12/2025 12:57 AM EDT THIS EXAM WAS PERFORMED AT [facility] XR SPINE CERVICAL 3 VWS OR LESS [...] 01/12/2025 12:57 AM Procedure Note Radiology, Radiologist, MD - 01/12/2025 THIS EXAM WAS PERFORMED AT [facility] SPINE CERVICAL 3 VWS OR LESS INDICATION: [...] MD on 01/12/2025 12:57 AM Susan Watson NP IMG XR PROCEDURES Final Result documented in this encounter Visit Diagnoses Not on filedocumented in this encounter Care Teams Senior Sql Server Developer Relationship Specialty Start Date End Date Jose Beckford MD [address] [place] [id number] PCP - General Family Medicine 06/09/24 Cherelle Coronado NP [address] [place] [address] Nurse Practitioner Family Medicine 06/09/24 documented as of this encounter
--- OUTSIDE RECORDS SUMMARY | 2025-02-18 07:11 | XMS_ITS | Patient Health Record ---
Author Organization [facility] Address [address] [place] [address] Support Name Relationship Address Phone LISETH GOLDSTEIN Emergency Contact [address] [place], [place] [address] KEL CASTILLO Guarantor Unknown [phone] Allergies No Known Allergies Reason For Referral No Information Social History Tobacco Use: Social History Observation Description Date Details (start date - stop date) Never Smoker NA - NA Smoking History Question Answer Notes Smoking Status NonSmoker Problems Problem Type SNOMED Code ICD Code Onset Dates Problem Status W/U Status Risk Notes Problem 074249432 Other nondisplaced fracture of upper end of left humerus, subsequent encounter for fracture with routine healing (S42.295D) Active confirmed Problem 480302750 Closed nondisplaced fracture of greater tuberosity of left humerus, initial encounter (S42.255A) Active confirmed Problem 237910556 Closed nondisplaced fracture of greater tuberosity of left humerus with routine healing (S42.255D) Active confirmed Problem [id number] Traumatic complete tear of left rotator cuff, initial encounter (S46.012A) Active confirmed Plan Of Treatment Pending Test Test Name Order Date MRI : Shoulder W/O Contrast Left - 99688 08/26/2023 DME - Arm Sling OTS 07/15/2023 Insurance Providers Payer Name Payer Address Payer Phone Subscriber Number Group Number Insured Name Patient Relationship to Insured Coverage Start Date Coverage End Date [facility] [address] [place] [address] [id number] KEL CASTILLO Self - patient is the insured [place] [address] [phone] [id number] KEL CASTILLO Self - patient is the insured Medical (General) History Medical History History ICD Code Asthma/COPD Lung Disease Lung cancer Heart problems: High Blood Pressure Depression Mental Illness: Anxiety Kidney trouble Sleep apnea CPAP Machine: Yes Surgical History Surgery Date(Month/Year) lung-right lower lobe 1996 Triple bypass 2006
--- OUTSIDE RECORDS SUMMARY | 2025-02-18 07:11 | XMS_ITS | Encounter Summary ---
Author Organization [facility] Address [address] [place] [address] Care Team Providers Care Starch Factory Laborer Name Role Phone Shaikh ION Grimes Primary Care Provider [phone] Shaikh ION Grimes Unavailable [phone] Jose Beckford MD Primary Care Provider [phone] Cherelle Coronado NP Unavailable [phone] Vannessa Russell MA Unavailable [phone] Encounter Details Date Type Department Care Team (Late st Contact Info) Description 09/05/2023 Clinisync Result Encounter [facility] External Department Unsolicited [...] often do you attend chur ch or uatsdin services? Never 07/22/2023 Do you belong to any clubs o r organizations such as worship groups, unions, fraternal or athletic groups, or [...] medical care, and heating? Somewhat hard 07/22/2023 [facility] - [...] place to sleep or slept in a group home (including now)? No 07/22/2023 Sex and [...] Visit [facility] [address] [place] [address] Susan Watson NP [address] [place] [address] documented as of this encounter Procedures Procedure Name Priority Date/Time Associated Diagnosis Comments MR SHOULDER LEFT W/O 09/05/2023 4:15 PM EST documented in this encounter Results * MR SHOULDER LEFT W/O (09/05/2023 4:15 PM EST) Anatomical Region Laterality Modality Radiographic Devika ging 09/05/2023 4:15 PM EST Narrative 09/05/2023 4:18 PM EST The [address] [address] Magnetic Resonance Report Signed Patient: KEL CASTILLO Jr. MR#: [id number] : 1955 Acct:[id number] Age/Sex: 68 / M ADM Date: 09/05/23 Loc: MRI Attending Dr: Carlyle Zhang M.D. Ordering Physician: Carlyle Zhang M.D. Date of Service: 09/05/23 Procedure(s): MR shoulder LT wo con Accession Number(s): [id number] cc: Carlyle Zhang M.D.; Shaikh Krish Grimes [place] [id number] Patient Name: KEL CASTILLO MRN: [facility]:[id number] date: 1955 Sex: M Assigned Patient Location: MRI Current Patient Location: MRI Accession/Order Number: [id number] Exam Date: 09/05/2023 14:55 Report Date: 09/05/2023 16:15 At the request of: CARLYLE ZHANG Procedure: MR shoulder LT wo con MR shoulder LT wo con, 09/05/2023 2:55 PM EST INDICATION: Nondisplaced Fracture Of Upper End Of Left Humerus S42.295D COMPARISON: Prior x-ray of left shoulder dated 08/26/2023 TECHNIQUE: Multiplanar and multisequential MR images of the left shoulder were obtained without contrast. FINDINGS: There are mild hypertrophic degenerative changes of AC joint. There is no os acromiale. No Hill-Sachs is noted. No acute fracture or dislocation is noted. The quadrilateral space and supraspinous notch are unremarkable. There is complete tear of the supraspinatus and infraspinatus with retraction of the supraspinatus tendon to the level of AC joint. T2 prolongation within the supraspinatus and infraspinatus muscle bulk suggesting of muscle tear predominantly in the infraspinatus. The long head of biceps and subscapularis and teres minor are unremarkable. Moderate to severe fatty muscle atrophy of supraspinatus and infraspinatus is noted. The labrum shows significant degenerative changes anteriorly. There is increased intra articular joint effusion with extension to the subacromial subdeltoid bursa. MR/MR shoulder LT wo con IMPRESSION: Complete tear of the supraspinatus and infraspinatus with moderate to severe fatty atrophy. No definite fracture is noted. Electronically authenticated by: BAO JUAN Date: 09/05/2023 16:15 Dictated By: Bao Juan M.D. Signed By: 09/05/23 1618 DD/ 1615 TD/TT: Weather Forcaster: Procedure Note Radiology, Radiologist, - 09/05/2023 [place] [address] Magnetic Resonance Report Signed Patient: KEL CASTILLO Jr.MR#: [id number] : 1955cct:[id number] Age/Sex: 68 / MADM Date: 09/05/23 Loc: MRI Attending Dr: Carlyle Zhang M.D. Ordering Physician: Carlyle Zhang M.D. Date of Service: 09/05/23 Procedure(s): MR shoulder LT wo con Accession Number(s): [id number] cc: Carlyle Zhang M.D.; Shaikh Krish Grimes The [place] [address] Patient Name: KEL CASTILLO MRN: [id number] date: 1955 Sex: M Assigned Patient Location: MRI Current Patient Location: MRI Accession/Order Number: [id number] Exam Date: 09/05/2023 14:55 Report Date: 09/05/2023 16:15 At the request of: CARLYLE ZHANG Procedure: MR shoulder LT wo con MR shoulder LT wo con, 09/05/2023 2:55 PM EST INDICATION: Nondisplaced Fracture Of Upper End Of Left Humerus S42.295D COMPARISON: Prior x-ray of left shoulder dated 08/26/2023 TECHNIQUE: Multiplanar and multisequential MR images of the left shoulder wereobtained without contrast. FINDINGS: There are mild hypertrophic degenerative changes of AC joint. There is no os acromiale. No Hill-Sachs is noted. No acute fracture or dislocation is noted. The quadrilateral space and supraspinous notch are unremarkable. There is complete tear of the supraspinatus and infraspinatus withretraction of the supraspinatus tendon to the level of AC joint. T2 prolongationwithin the supraspinatus and infraspinatus muscle bulk suggesting of muscle tear predominantly in the infraspinatus. The long head of biceps and subscapularis and teres minor areunremarkable. Moderate to severe fatty muscle atrophy of supraspinatus and infraspinatusis noted. The labrum shows significant degenerative changes anteriorly. There is increased intra articular joint effusion with extension to the subacromial subdeltoid bursa. MR/MR shoulder LT wo con IMPRESSION: Complete tear of the supraspinatus and infraspinatus with moderate tosevere fatty atrophy. No definite fracture is noted. Electronically authenticated by: BAO JUAN Date: 09/05/2023 16:15 Dictated By: Bao Juan M.D. Signed By:09/05/238 DD/ 14 TD/TT: Weather Forcaster: us Generic External Data Provider IMG XR PROCEDURES Final Result documented in this encounter Visit Diagnoses Not on filedocumented in this encounter Care Teams Starch Factory Laborer Relationship Specialty Start Date End Date Shaikh Grimes MD [address] [place] [address] PCP - General Internal Medicine 08/12/22 06/08/24 Shaikh Grimes MD [address] [place] [address] PCP - [employer] 10/11/23 08/11/24 Jose Beckford MD [address] [place] [address] PCP - General Family Medicine 06/09/24 Cherelle Coronado NP [address] [place] [address] Nurse Practitioner Family Medicine 06/09/24 Vannessa Russell MA [address] [place] [address] Family Medicine 06/17/24 06/18/24 documented as of this encounter
--- OUTSIDE RECORDS SUMMARY | 2025-02-18 07:11 | XMS_ITS | Encounter Summary ---
Author Organization [facility] Address [address] [place] [address] Care Team Providers Care Tub Puller Name Role Phone Thomas Hurtado MD Unavailable Source Comments In the event this information is protected by the Federal Confidentiality of Alcohol and Drug AbusePatient Records regulations: The Federal rules restrict any use of the information to criminally investigate or prosecute any alcohol or drug abuse patient.[facility] Encounter Details Date Type Department Care Team ([facility] st Contact Info) Description 02/14/2022 Patient Msg Neurology [address] [place] [id number] Provider, [facility] Confirming Your Sleep Study Social History Tobacco Use Types Packs/Day Years Used Date Smoking Tobacco: Never Smokeless Tobacco: Current Chew PHQ-2 Answer Date Recorded PHQ-2 score 6 12/22/2021 Area Deprivation Index Answer Date Brandon rded National Score (1-100), lower number is lower ri sk 87 01/02/2022 State Score (1-10), lower number is lower risk N ot on file 01/02/2022 Data from: https://www.neighborhoodatlas.medicine.[facility].edu/. Last address used for calculation [address] [...] 11:00 AM EDT Office Visit Neurology [address] [place] [address] Ebony Henderson DO [address] [place] [address] 6 month follow up documented as of this encounter Visit Diagnoses Not on filedocumented in this encounter Care Teams Tub Puller Relationship Specialty Start Date End Date Thomas Hurtado MD [address] [place] [address] NI Referring Team Psychiatry 12/21/21 documented as of this encounter
--- NOTE | 2025-02-18 07:30 | CA_ITS ---
Patient Name: KEL CASTILLO MR#: [id number] : 1955 Exam Date: 02/18/2025 Ordering Doctor: DR MARK PADILLA M.D. ECHOCARDIOGRAM REPOR PROCEDURE: CA ECHO DOPPLER COMPLETE INDICATIONS: Dyspnea on exertion, CABGx3, hypertension COMPARISON: None. DESCRIPTION: COMPLETE ECHOCARDIOGRAM Real-time transthoracic echocardiography with 2D, M-mode, spectral and color flow Doppler performed. QUALITY: Technical quality was good. LEFT VENTRICLE: Normal chamber size. Mild concentric left ventricular hypertrophy. Calculated left ventricular ejection fraction is 56%. LV EF: Normal left ventricular ejection fraction, (>55%). DIASTOLIC: Grade III diastolic dysfunction. ATRIAL SEPTUM: Visually appears intact. LEFT ATRIUM: Severe dilatation. RIGHT ATRIUM: Mild dilatation. RIGHT VENTRICLE: Normal chamber size. Normal right ventricular systolic function. TRICUSPID VALVE: Normal mobility and thickness. No stenosis with mild regurgitation. Doppler studies reveal mildly (35-45) elevated right sided pressures.RVSP 46 mmHg MITRAL VALVE: Normal mobility and thickness. No evidence of mitral valve stenosis. There is no mitral annular calcification. Moderate mitral regurgitation. AORTIC VALVE: Normal trileaflet appearance. Thickened aortic valve. Normal leaflet mobility. No evidence of aortic valve stenosis. No aortic regurgitation. AORTIC ROOT: Normal diameter and appearance. Ascending aorta is normal in size. PULMONIC VALVE: Normal thickness and mobility. No stenosis. Trivial regurgitation. PERICARDIUM: No evidence of pericardial effusion. IVC: Collapes with inspirations. IVC is normal in size. PLEURA: CONCLUSION: Mild concentric left ventricular hypertrophy Normal left ventricle systolic function without wall motion abnormalities, ejection fraction 56% Grade 3 diastolic dysfunction Severely dilated left atrium Normal right ventricular size and systolic function Moderate pulmonary hypertension, RVSP 46 mmHg Moderate mitral regurgitation Mild tricuspid regurgitation Adult Echocardiography Procedure Report Left Ventricle LVEDD (3.7 - 5.6 cm): 5.04 cm LVESD (2.2 - 4.0 cm): 3.74 cm LVIVS thickness (0.6 - 1.2 cm): 0.98 cm LVPW thickness (0.5 - 1.0 cm): 1.20 cm e': 0.07 m/s E - e': 15.82 LVOT Max Gradient: 2.23 mm[Hg] LVOT Area (cm2): 0.75 m/s Peak Velocity (LVOT): 0.75 m/s Mean Velocity (LVOT): 0.53 m/s LVOT Diameter 2.34 cm Left Ventricular Ejection Fraction: 56.16 % Left Atrium LA Volume Index (2D A2C): 59.58 ml/m2 Left Atrium Systolic Dimension: 4.87 cm Mitral Valve MV E to A Ratio: 2.05 MV Max Gradient: MV Mean Gradient: Mitral Valve A-Wave Peak Velocity: 0.51 m/s Mitral Valve E-Wave Peak Velocity: 1.04 m/s Cardiovascular Orifice Area: Right Ventricle RV Internal Diastolic Dimension: Aorta AO Root Diam: 3.25 cm Ascending Ao Diam: 2.79 cm Aortic Valve AoV Area (Peak Andre): 2.17 cm2, 2.17 cm2 AoV Area (VTI): 2.12 cm2, 2.12 cm2 Deceleration [place]ley: Pressure Half-Time: Peak Velocity(Antegrade Flow): 1.47 m/s Peak Gradient(Antegrade Flow): 8.67 mm[Hg] Mean Velocity(Antegrade Flow): 0.98 m/s Mean Gradient(Antegrade Flow): 4.49 mm[Hg] Velocity Time Integral: 37.64 cm Tricuspid Valve Peak Velocity (Regurgitant Flow): 2.39 m/s, 3.11 m/s, 3.28 m/s Peak Velocity: Pulmonic Valve Mean Gradient: Mean Velocity: Peak Velocity: Peak Gradient: 4.26 mm[Hg], 3.82 mm[Hg] Right Atrium Right Atrium Systolic Pressure: 49.58 ml, 49.58 ml Dictated by: Shana Cerrato MD on 02/19/2025 at 18:13 Approved by: Shana Cerrato MD on 02/19/2025 at 18:22
== END 2025-02-18 07:06 | disposition home or self-care (01) ==
LOC: CARD 07:08
PROVIDERS: PCP Nurse Practitioner; Visit Provider Internal Medicine Interventional Cardiology
DX: I73.9 Peripheral vascular disease, unspecified (principal); R06.09 Other forms of dyspnea
CPT/HCPCS: 93306; 93923

== ENCOUNTER 2025-03-11 09:07 | Outpatient (OUT) | payer MEDICARE, SELFPAY ==
[2025-03-11 09:25] LABS: Estimated GFR (African America 39 (>=60 mL/min/1.73m^2); Estimated GFR (Non-African Ame 32 (>=60 mL/min/1.73m^2)
== END 2025-03-11 09:08 | disposition home or self-care (01) ==
LOC: LAB 09:07
PROVIDERS: PCP Nurse Practitioner; Visit Provider Internal Medicine Interventional Cardiology
DX: I73.9 Peripheral vascular disease, unspecified (principal)
CPT/HCPCS: 36415; 82565

== ENCOUNTER 2025-04-17 09:03 | Outpatient (OUT) | payer MEDICARE, SELFPAY ==
--- OUTSIDE RECORDS SUMMARY | 2025-04-17 09:08 | XMS_ITS | CCD ---
Author Organization [facility] Care Team Providers Care Pharmacy Data Analyst Name Role Phone AMBURN, JOMAR Unavailable Unavailable AMBURN, JOMAR Unavailable Unavailable AMBURN, JOMAR Unavailable Unavailable AMBURN, JOMAR Unavailable Unavailable AMBURN, JOMAR Unavailable Unavailable AMBURN, JOMAR Unavailable Unavailable Genesis, Thomas Unavailable Reuben Triana Unavailable Susannah Nevarez Unavailable Cristo Suazo Unavailable Cristo Suazo Unavailable Genesis, Thomas Unavailable Corona Monroe Unavailable Genesis, Thomas Unavailable MD Corona Monroe Attending Provider [phone] DO Daria Cardoza Primary Care Provider Genesis, Thomas Unavailable Nadira Choi Unavailable Lisseth Toscano Unavailable Gneesis, Thomas Unavailable SHAIKH Randolph GRIMES Consulting Unavailable SHAIKH Randolph GRIMES Primary Care Unavailable SHAIKH Randolph GRIMES Admitting Unavailable SHAIKH Randolph GRIMES Attending Unavailable SHAIKH Randolph GRIMES Primary Care Unavailable VALERIE, DR FLORES Attending Unavailable VALERIE, DR FLORES Consulting Unavailable DR SARAH TOLLIVER Admitting Unavailable BAKHOUS, AZIZ Admitting Unavailable BAKHOUS, AZIZ Attending Unavailable BAKHOUS, AZIZ Consulting Unavailable NON STAFF Primary Care Unavailable Lucy Cope Admitting Unavailable Lucy Cope Attending Unavailable Corona Monroe Admitting Unavailable Corona Monroe Attending Unavailable Daria Cardoza Primary Care Unavailable Cornelio LEMON, Medina Primary Care Provider Genesis LEMON, Thomas Unavailable EBONY KAUFMAN Referring Unavailable Cornelio LEMON, Medina Unavailable Jose Beckford MD Primary Care Provider Ivonne DIRECT CARE STAFFER, Jayy Unavailable [phone] Vannessa Russell MA Unavailable Unavailable Cornelio LEMON, [facility] Primary Care Provider Ivonne DIRECT CARE STAFFER, Jayy Unavailable [phone] EBONY TRENT Attending Unavailable SELF Referring Unavailable MISTY POLO Attending Unavailable EBONY TRENT Referring Unavailable EBONY TRENT Attending Unavailable SELF Referring Unavailable Aichholobi [employer], Susan Hurley Primary Care Provider SUSAN WATSON Attending Unavailable SUSAN WATSON Attending Unavailable SHAIKH GRIMES Attending Unavailable JAYY CORONADO Attending Unavailabl e SUSAN WATSON Attending Unavailable SUSAN WATSON Attending Unavailable JAYY CORONADO Attending Unavailabl e Aichholz [employer], Susan J Primary Care Provider AichSusan oh CNP Primary Care Provider BILL GANT Referring Unavailable SUSAN WATSON Primary Care Unavailable BILL GANT Attending Unavailable SELF Referring Unavailable SUSAN WATSON Primary Care Unavailable JAYY CORONADO Referring Unavaila ble SHAIKH GRIMES Primary Care Unavailable ELTAHAWVaishali, EHAB A Referring Unavailable MOSES GRIMESIKH Primary Care Unavailable SUSAN WATSON Referring Unavailable AICHHOLZ, SUSAN J Primary Care Unavailable BAKHOUS, AZIZ Referring Unavailable AICHHOLZ, SUSAN J Primary Care Unavailable BAKHOUS, AZIZ Referring Unavailable AICHHOLZ, SUSAN J Primary Care Unavailable DARRICK SAUER Attending Unavailable AICHHOLZ, SUSAN J Referring Unavailable AICHHOLZ, SUSAN J Primary Care Unavailable ABIODUN CHERRY Admitting Unavailable ABIODUN CHERRY Attending Unavailable AICHHOLZ, SUSAN J Referring Unavailable AICHHOLZ, SUSAN J Primary Care Unavailable ABIODUN CHERRY Attending Unavailable ABIODUN CHERRY Referring Unavailable AICHHOLZ, SUSAN J Primary Care Unavailable DARRICK SAUER Attending Unavailable AICHHOLZ, SUSAN J Referring Unavailable AICHHOLZ, SUSAN J Primary Care Unavailable DARRICK ASUER Attending Unavailable DARRICK SAUER Referring Unavailable AICHHOLZ, SUSAN J Primary Care Unavailable BILL GANT Referring Unavailable AICHHOLZ, SUSAN J Primary Care Unavailable ELTAHAWY, EHAB Admitting Unavailable ELTAHAWY, EHAB Attending Unavailable ITALO LYLES Referring Unavailable ELTAHAWY, EHAB Attending Unavailable ELTAHAWY, EHAB Referring Unavailable Allergies Allergy Classification Reported Allergen(s) Allergy Type Date of Onset Reaction(s) Facility (1 source) Penicillins; Translations: [PENICILLINS] Propensity to adverse reactions to drug (disorder) 5 [facility] Medications Current Medications Medication Drug Class(es) Dates Sig (Normalized) Sig (Original) [id number] 200 actuat albuterol 0.09 mg/actuat metered dose [...] Dihydropyridine Calcium Channel Kelsy Start: 03-11-20 End: 05-30-20 take 1 tablet by mouth once amLODIPine (Norvasc) 5 MG tablet Indications: Primary hypertension Take 1 tablet (5 mg) by mouth every 12 (twelve) hours 180 tablet 1 03/01/2025 05/30/2025 Active Start: 10-15-2023 take 1 tablet by [...] Inhibitor, Nonsteroidal Anti-inflammatory Drug Start: 10-22-2019 End: 05-30-2025 take 1 tablet by mouth in the morning aspirin 81 MG EC tablet Indications: 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 artery of [place] heart without angina pectoris Take 1 tablet (81 mg) by mouth in the morning. 90 tablet 1 03/01/2025 05/30/2025 Active aspirin, enteric coated (ASPIRIN, ENTERIC COATED) 81 mg EC tablet q 24 HR. Active take 1 tablet by mouth once shonna y Aspirin Adult Low Dose 81 MG 1 tablet Orally Once a day Active Comment on above: q 24 HR. atorvastatin 80 mg oral tablet (20 sources) HMG-CoA Reductase Inhibitor Start: 10-22-19 End: 05-30-20 take 1 tablet by mouth at bedtime atorvastatin (Lipitor) 80 MG tablet Indications: Other hyperlipidemia Take 1 tablet (80 mg) by mouth at bedtime 90 tablet 1 03/01/2025 05/30/2025 Active Comment on above: atorvastatin 80 mg t ablet TAKE 1 TABLET BY MOUTH EVERY DAY baclofen 10 mg oral tablet (20 sources) gamma-Aminobutyric Acid-ergic Agonist Start: 12-25-19 take 1 tablet by mouth once daily [...] tablet (20 sources) Aminoketone Start: 03-11-2024 End: 05-30-2025 take 1 tablet by mouth every twenty-four hours in the morning buPROPion XL (Wellbutrin XL) 300 MG 24 hr tablet Indications: Recurrent major depression in partial remission Take 1 tablet (300 mg) by mouth in the morning. Do not crush, chew, or split. 90 tablet 1 03/01/2025 05/30/2025 Active Start: 10-15-2023 take 1 tablet by [...] 15 mg oral tablet (20 sources) Start: End: take 1 tablet by mouth in the morning busPIRone (Buspar) 15 MG tablet Indications: Recurrent major depression in partial remission Take 1 tablet (15 mg) by mouth in the morning and 1 tablet (15 mg) before bedtime. 180 tablet 1 03/01/2025 05/30/2025 Active Comment on above: buspirone 15 mg tabl et TAKE 1 TABLET BY MOUTH TWICE DAILY Centrum Silver 50+Men - (20 sources) Centrum Silver 5 0+Men - as directed Orally Active clopidogrel 75 mg oral tablet (20 sources) P2Y12 Platelet Inhibitor Start: 10-22-2019 End: 05-30-2025 take 1 tablet by mouth once daily clopidogrel (Plavix) 75 MG tablet Indications: 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 artery of [place] heart without angina pectoris Take 1 tablet (75 mg) by mouth Daily 90 tablet 1 03/01/2025 05/30/2025 Active Comment on above: clopidogrel 75 mg ta blet TAKE 1 TABLET BY MOUTH AT BEDTIME empagliflozin 10 mg oral tablet (2 sources) Sodium-Glucose Cotransporter 2 Inhibitor Start: 04-02-2025 take 1 tablet by mouth once daily at breakfast empagliflozin (JARDIANCE) 10 mg tablet Take 1 tablet by mouth daily with breakfast. 30 tablet 11 04/02/2025 Active famotidine 20 mg oral tablet (20 sources) Histamine-2 Receptor Antagonist Start: 10-22-2019 End: 05-30-2025 take 1 tablet by mouth in the morning famotidine (Pepcid) 20 MG tablet Indications: Gastroesophageal reflux disease without esophagitis Take 1 tablet (20 mg) by mouth in the morning and 1 tablet (20 mg) before bedtime. 180 tablet 1 03/01/2025 05/30/2025 Active Comment on above: famotidine 20 mg tab let TAKE 1 TABLET BY MOUTH EVERY DAY AT BEDTIME NEEDED fenofibrate 43 mg oral capsule (20 sources) Peroxisome Proliferator Receptor alpha Agonist Start: 10-22-2019 End: 05-30-2025 take 1 capsule by mouth twice daily Fenofibrate Micronized 43 mg capsule Take 43 mg by mouth twice daily. 12/15/2021 Active take 1 capsule by [facility] once daily before breakfast fenofibrate micronized (ANTARA) 43 mg capsule Take 1 capsule (43 mg total) by mouth every morning before breakfast. Active Comment on above: Take 43 mg by mouth twice daily. ferrous sulfate 325 mg oral tablet (8 sources) Start: 01-19-2025 End: 05-30-2025 take 1 tablet by mouth at mealtime ferrous sulfate (FeroSul) 325 (65 Fe) MG tablet Indications: Chronic kidney disease, stage 4 (severe) ([facility]) Take 1 tablet (325 mg) by mouth in the morning. Take with meals. 90 tablet 1 03/01/2025 05/30/2025 Active Fish Oils (20 sources) take 1 capsule [...] (20 sources) Anticholinergic, Corticosteroid, beta2-Adrenergic Agonist Start: End: take 1 puff(s) by mouth once daily, then take 1 puff(s) by mouth once daily Fluticasone-Umecli din-Vilant (Trelegy Ellipta) 100-62.5-25 MCG/ACT aerosol powder Indications: Chronic obstructive pulmonary disease, unspecified COPD type (HCC) Inhale 1 puff Daily Rinse mouth after use. Inhale 1 puff Daily 180 each 1 03/01/2025 05/30/2025 Active Start: 02-18-2024 End: 03-24-2025 take 1 puff(s) by inhalation in the morning ddybiitaidu-wudfgrohw-cyrqspjt (TRELEGY ELLIPTA) 100-62.5-25 mcg blister with device Inhale 1 puff in the morning. 02/18/2024 03/24/2025 Active Start: 10-15-2023 Fluticasone-Um eclidin-Vilanter (Trelegy Ellipta) 100-62.5-25 mcg blister with device Active 1 INH INHALATION Daily October 15, 2023 1:00am Start: 09-19-2023 End: 12-18-2023 take 1 puff(s) by inhalation in the morning Pdumrvtzegr-Natxcdvvn-Awzdjv (Trelegy Ellipta) 100-62.5-25 MCG/ACT aerosol powder Indications: Chronic obstructive pulmonary disease, unspecified COPD type (CMS/HCC) Inhale 1 puff in the morning. 90 each 0 09/19/2023 12/18/2023 Active Start: 02-27-2022 take 1 puff(s) by inhalation once daily Trelegy Ellipta 100-62.5-25 MCG/INH 1 pu ff Inhalation Once a day for 30 days Feb, Active End: 09-19-2023 Eedbjqvrbar-Weostxutv-Uzpbvz (Trelegy Ellipta) 100-62.5-25 MCG/ACT aerosol powder Inhale 0 09/19/2023 Discontinued (Reorder) furosemide 20 mg oral tablet (2 sources) Loop Diuretic Start: 04-02-2025 take 1 tablet by mouth once daily in the morning furosemide (LASIX) 20 mg tablet Take 1 tablet by mouth every morning. 30 tablet 11 04/02/2025 Active 24 hr isosorbide mononitrate 60 mg extended release oral tablet (20 sources) Nitrate Vasodilator Start: 09-19-2023 End: 12-18-2023 take 1 tablet by mouth every twenty-four hours in the morning isosorbide mononitrate ER (Imdur) 60 MG 24 hr tablet Indications: 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 artery of [place] heart without angina pectoris (CMS/HCC) , Primary hypertension (CMS/HCC) Take 1 tablet (60 mg) by mouth in the morning. Do not crush or chew.. 90 tablet 0 09/19/2023 12/18/2023 Active Start: 10-22-2019 End: 05-30-2025 take 1 tablet by mouth once daily isosorbide mononitrate ER (Imdur) 60 MG 24 hr tablet Indications: Primary hypertension , 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 artery of [place] heart without angina pectoris Take 1 tablet (60 mg) by mouth Daily Do not crush or chew. 90 tablet 1 03/01/2025 05/30/2025 Active Comment on above: isosorbide mononitra te ER 60 mg tablet,extended release 24 hr TAKE 1 TABLET BY MOUTH EVERY MORNING lisinopril 10 mg oral tablet (20 sources) Angiotensin Converting Enzyme Inhibitor Start: 12-25-19 End: 05-30-20 take 1 tablet by mouth once daily lisinopril 10 MG tablet Indications: Primary hypertension Take 1 tablet (10 mg) by mouth Daily 90 tablet 1 03/01/2025 05/30/2025 Active Comment on above: lisinopril 10 mg tab let metoprolol tartrate 50 mg oral tablet (20 sources) beta-Adrenergic Kelsy Start: 03-11-20 End: 06-05-20 take 1 tablet by mouth in the morning metoprolol tartrate (Lopressor) 50 MG tablet Indications: Primary hypertension , 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 artery of [place] heart without angina pectoris Take 1 tablet (50 mg) by mouth in the morning and 1 tablet (50 mg) before bedtime. 180 tablet 1 03/01/2025 05/30/2025 Active Start: 09-19-2023 End: 12-18-2023 take 1 tablet by mouth in the morning metoprolol tartrate (Lopressor) 50 MG tablet Indications: 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 artery of [place] heart without angina pectoris (CMS/HCC) , Primary [...] 2023 1:00am take 1 tablet by matt twice daily metoprolol succinate ER (TOPROL XL) 50 mg 24 hr tablet metoprolol succinate ER 50 mg tablet,extended release 24 hr TAKE 1 TABLET BY MOUTH TWICE DAILY Active take 1 capsule by mo [facility] twice daily Metoprolol Succinate 50 MG 1 capsule Orally twice a day Active Comment on above: metoprolol succinate ER 50 mg tablet,extended release 24 hr TAKE 1 TABLET BY MOUTH TWICE DAILY Multivitamin preparation (2 sources) Start: 09-13-19 take 1 tablet by mouth once daily Multivitamin Active 1 TAB PO Daily September 13, 2020 1:00am Multivitamin Tablet (2 sources) Start: 09-13-19 21 take 1 tablet by mouth once daily Multivitamin Tablet Active 1 TAB PO Daily September 13, 2020 1:00am Nitro Sublingual 0.4 0.4mg (20 sources) Nitro Sublingual 0.4 0.4mg 1 Sublingual Every 5min x3 PRN Active nitroglycerin 0.4 mg subling ual tablet (20 sources) Nitrate Vasodilator Start: 10-15-2023 End: 10-15-2023 Start: 10-22-2019 End: 06-17-2024 nitroglycerin (Nitrostat) 0. 4 MG SL tablet Indications: 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 artery of [place] heart without angina pectoris Place 1 tablet (0.4 mg) under the tongue every 5 (five) minutes if needed for chest pain 30 tablet 06/17/2024 Active nitroglycerin toscano blingual (NITROQUICK) 0.4 mg SL tablet nitroglycerin 0.4 mg sublingual tablet Active Comment on above: nitroglycerin 0.4 mg sublingual tablet OLANZapine 5 mg oral tablet (20 sources) Atypical Antipsychotic Start: End: take 1 tablet by mouth once daily at bedtime OLANZapine (ZYPREXA) 5 mg tablet Take 5 mg by mouth daily at bedtime. 03/01/2025 05/30/2025 Active Start: 12-01-2024 End: 03-24-2025 take 1 [...] BY MOUTH EVERY DAY AT BEDTIME omega 5-yrg-vjt-fish oil (FISH OIL) 100-160-1,000 mg cap (16 sources) omega 3-dha-epa- fish oil (FISH OIL) 100-160-1,000 mg cap Take by mouth. Active omega 3-dha-epa- fish oil (FISH OIL) 100-160-1,000 mg cap Take by mouth. 0 Active Comment on above: Take by mouth. [place]-3 Fatty Acids (2 sources) Start: 09-13-2020 take 1000 mg by mouth once daily [place]-3 Fatty Acids Active 1000 MG PO Daily September 13, 2020 1:00am [place]-3 Fatty Acids Capsule (2 sources) Start: 09-13-2020 take 1 capsule by mouth once daily [place]-3 Fatty Acids Capsule Active 1000 MG PO Daily September 13, 2020 1:00am Paxlovid 10 x 150 MG & 10 x 100MG (1 source) Start: 03-07-2022 Paxlovid 10 x 150 MG & 10 x 100MG as directed Orally Twice a day for 5 days Feb, Active sertraline 100 mg oral tablet (20 sources) Serotonin Reuptake Inhibitor Start: 03-11-2024 End: 05-30-2025 take 2 tablets by mouth once daily sertraline (Zoloft) 100 MG tablet Indications: EDITH (generalized anxiety disorder) , Recurrent major depression in partial remission Take 2 tablets (200 mg) by mouth Daily 180 tablet 1 03/01/2025 05/30/2025 Active Start: 10-15-2023 take 1.5 tablets by [...] sources) Serotonin Reuptake Inhibitor Start: 10-22-2019 End: 05-30-2025 take 1 tablet by mouth once daily at bedtime traZODone (DESYREL) 100 mg tablet Take 100 mg by mouth daily at bedtime. 08/10/2022 Active Comment on above: Take 100 mg [...] 09, 2023 12:00am October 15, 2023 4:56pm doxepin hydrochloride 50 mg oral capsule (18 sources) Tricyclic Antidepressant Start: 12-04-2021 take 1 capsule by mouth every twenty-four hours Doxepin HCl 100 MG 1 capsule at bedtime Orally Once a day for 30 days Nov, Active Start: 12-04-2021 take 1 capsule by [facility] every twenty-four hours Doxepin HCl 25 MG [...] 1 PUFF BY MATT TH EVERY DAY methylPREDNISolone (9 sources) Corticosteroid Start: 12-22-2021 End: 08-15-2022 methylPREDNISolone (MEDROL, TEAGAN,) 4 mg Dose-Pack Take as instructed 1 Package 0 12/22/2021 08/15/2022 Discontinued Start: 12-22-2021 methylPREDNISo lone (MEDROL, TEAGAN,) 4 mg Dose-Pack Take as instructed 1 Package 0 12/22/2021 Active Comment on above: Take as instructed Multivitamins-Minerals -Lutein (MULTIVITAMIN 50 PLUS) tab (9 sources) End: 08-15-2022 Buxshvohwkyih-Mddjntov-Ztmo in (MULTIVITAMIN 50 PLUS) tab Take 1 tablet by mouth once daily. 0 08/15/2022 Discontinued Multivitamins-Mi nerals-Lutein (MULTIVITAMIN 50 PLUS) tab Take 1 tablet by mouth once daily. 0 Active Comment on above: Take 1 tablet by matt once daily. predniSONE 20 mg oral tablet (9 sources) Start: 01-19-2025 End: 03-01-2025 predniSONE (Deltasone) 20 MG tablet Indications: Neck pain Twice a day for 3 days, then once a day for 3 days, take with food 9 tablet 01/19/2025 03/01/2025 Discontinued (Therapy completed) Start: 02-26-2024 predniSONE (DE LTASONE) 20 mg tablet 60mg x3d, 40mg x3d, 20mg x3d, 10mg x4d 20 tablet 02/26/2024 Active traMADol hydrochloride 50 mg oral tablet (4 sources) Opioid Agonist Start: 09-30-2020 End: 10-15-2023 take 0.5-1 tablets by mouth every six hours as needed for pain Tramadol (Ultram) 50 mg tablet Discontinued 50 MG PO Q6H as needed for pain 30 7 September 30, 2020 1:00am October 15, 2023 5:00pm 1/2 - 1 tab po q 6 hours prn pain Problems Active Problems Problem Classification Problem Date Documented Date Episodic/Chronic Abdominal hernia (4 sources) Hernia of anterior abdominal wall; Translations: [Ventral hernia without obstruction or gangrene] 09-30-2020 Episodic Comment on above: Problem List clean-u p per request of Phys. EHR Cmte Abdominal pain (1 source) Unspecified abdominal pain; Translations: [Unspecified abdominal pain] Onset: 04-09-2023 Episodic Acute and unspecified renal failure (2 sources) Acute kidney failure, unspecified; Translations: [KELLIE (acute kidney injury) N17.9] Onset: 05-23-2021 Resolved: 05-23-2021 Episodic Anxiety disorders (20 sources) Generalized anxiety disorder; Translations: [Generalized anxiety disorder] Onset: 03-13-2023 09-19-2023 Chronic Chronic kidney disease (20 sources) Chronic kidney [...] angina pectoris] Onset: 05-23-2021 Resolved: 08-16-2021 Chronic Congestive heart failure; nonhypertensive (8 sources) Chronic diastolic heart failure; Translations: [Chronic diastolic (congestive) heart failure] Onset: 03-01-2025 03-01-2025 Chronic Coronary atherosclerosis and other heart disease (20 sources) Atherosclerotic heart disease of [place] coronary artery without angina pectoris; Translations: [Coronary arteriosclerosis] Onset: 07-27-2022 Chronic Coronary atherosclerosis and other heart disease (1 source) Presence of aortocoronary bypass graft; Translations: [Hx of CABG] Onset: 04-01-2025 Episodic Deficiency and other anemia (3 sources) Anemia; [...] 05-28-2014 Resolved: 12-26-2021 Chronic Headache; including migraine (19 sources) Migraine; Translations: [Migraine, unspecified, not intractable, without status migrainosus] Onset: 07-18-2012 11-19-2024 Chronic Heart valve disorders (3 sources) Nonrheumatic mitral (valve) insufficiency; Translations: [Non-rheumatic mitral regurgitation ] Onset: 02-22-2022 03-31-2025 Chronic Hypertension with complications and secondary hypertension (20 sources) Malignant hypertensive chronic kidney disease; Translations: [Hypertensive chronic kidney disease with stage 1 through stage 4 chronic kidney disease, or unspecified chronic kidney disease] Onset: 05-23-2021 Resolved: 05-23-2021 Chronic Malaise and fatigue (20 sources) Fatigue; Translations: [Chronic fatigue, unspecified] Chronic Malaise and fatigue (2 sources) Asthenia; Translations: [Weakness] 01-27-2025 Episodic Mood disorders (20 sources) Depressive disorder; Translations: [Depression, unspecified depression type] Onset: 12-18-2021 Resolved: 11-19-2024 Chronic Other connective tissue disease (2 sources) Pain in right leg; Translations: [Pain in right leg] Onset: 03-16-2025 Episodic Other connective tissue disease (2 sources) Pain in left leg; Translations: [Pain in left leg] Onset: 03-16-2025 Episodic Other hereditary and degenerative nervous system conditions (20 sources) Impaired cognition; Translations: [Mild cognitive impairment, so stated] Onset: 04-12-2022 Chronic Other hereditary and degenerative nervous system conditions (1 source) Extrapyramidal and movement disorder, unspecified; Translations: [Movement disorder] Onset: 04-01-2025 Chronic Other lower respiratory disease (15 sources) Nodule of lung; Translations: [Solitary pulmonary nodule] Episodic Other lower respiratory disease (3 sources) Solitary pulmonary nodule Onset: 01-05-2022 Resolved: 02-27-2022 Episodic Other lower respiratory disease (2 sources) Other forms of dyspnea; Translations: [ROMAN (dyspnea on exertion)] Onset: 02-27-2022 Resolved: 02-27-2022 Episodic Other lower respiratory disease (2 sources) Dyspnea on exertion; Translations: [Other forms of dyspnea] 04-01-2025 Episodic Other nervous system disorders (3 sources) Abnormal gait; Translations: [Unspecified abnormalities of gait and mobility] 05-04-2024 Episodic Other nervous system disorders (2 sources) Impaired cognition 11-19-2024 Episodic Peripheral and visceral atherosclerosis (20 sources) Atherosclerosis of arteries of the extremities; Translations: [Unspecified atherosclerosis of [place] arteries of extremities, unspecified extremity] Onset: 08-25-2012 11-19-2024 Chronic Pulmonary heart disease (7 sources) Pulmonary hypertension; Translations: [Pulmonary hypertension, unspecified] Onset: 03-01-2025 03-01-2025 Chronic Residual codes; unclassified (11 sources) Sleep [...] disc disorders; other back problems (20 sources) Cervical spondylosis; Translations: [Spondylosis without myelopathy or radiculopathy, cervical region] Onset: 01-19-2025 01-19-2025 Chronic Spondylosis; intervertebral disc disorders; other back problems (20 sources) Neck pain; Translations: [Cervicalgia] Onset: 11-19-2024 10-12-2024 Episodic Past or Other Problems Problem Classification Problem Date Documented Date Episodic/Chronic Cancer of bronchus; lung (20 sources) History of malignant neoplasm of thoracic cavity structure; Translations: [Personal history of other malignant neoplasm of bronchus and lung] Onset: 02-27-2022 Resolved: 02-27-2022 Episodic Deficiency and other anemia (5 sources) Anemia, unspecified; Translations: [Anemia, unspecified] Onset: 10-20-2024 03-31-2024 Episodic Fluid and electrolyte disorders (11 sources) Hyperkalemia; Translations: [Hyperkalemia] Onset: 07-11-2022 Episodic Fracture of upper limb (20 sources) Closed fracture proximal humerus, greater tuberosity; Translations: [Nondisplaced fracture of greater tuberosity of left humerus, subsequent encounter for fracture with routine healing] Onset: 09-19-2023 09-19-2023 Episodic Nonspecific chest pain (2 sources) Chest pain; Translations: [Chest pain, unspecified] Onset: 09-18-2013 01-27-2025 Episodic Other connective tissue disease (20 sources) Recurrent falls ; Translations: [Repeated falls] Onset: 06-17-2024 06-23-2024 Episodic Other connective tissue disease (2 sources) Repeated falls; Translations: [Repeated falls] Onset: 10-13-2024 Episodic Other lower respiratory disease (7 sources) Shortness of breath; Translations: [SHORTNESS OF BREATH] Onset: 12-26-2021 Resolved: 01-29-2022 Episodic Other lower respiratory disease (16 sources) Dyspnea; Translations: [Shortness of breath] Onset: 09-18-2013 Episodic Other lower respiratory disease (2 sources) Dyspnea, unspecified; Translations: [Dyspnea, unspecified] Onset: 10-13-2024 Episodic Other nervous system disorders (20 sources) Functional gait abnormality; Translations: [Other abnormalities of gait and mobility] Onset: 06-17-2024 06-23-2024 Episodic Other nervous system disorders (2 sources) Other abnormalities of gait and mobility; Translations: [Other abnormalities of gait and mobility] Onset: 10-13-2024 Episodic Other screening for suspected conditions (not mental disorders or infectious disease) (2 sources) Abnormal results of cardiovascular function studies; Translations: [Abnormal result of cardiovascular function study, unspecified] Onset: 09-30-2013 01-27-2025 Episodic Sprains and strains (20 sources) Strain of muscle(s) and tendon(s) of the rotator cuff of left shoulder, subsequent encounter; Translations: [Other specified aftercare] Onset: 09-19-2023 09-19-2023 Episodic Results Test Name Value Interpretation Reference Range On license of [facility] 04-08-2025 CIARA -- Attestation signed by Sarah Tolliver MD at 04/08/2025 9:29 AM Sarah Tolliver MD, MPH, FACC, [facility], FS Interventional Cardiology Pager Email: [email or web address] Patient: Kel Castillo Procedure Information Date/Time: 04/08/25929 Procedures: Aortogram - PC APPROVED AO/ RUNOFFS Lower extremity angiogram (Bilateral) Location: [facility] BRIDGES SUPERVISOR 3 / [facility] (Cath) Providers: Sarah Tolliver MD Clinical information reviewed: [facility] Meds Physical Exam Airway Mallampati: III TM distance: >3 FB Neck ROM: limited Cardiovascular Rhythm: regular Rate: normal Pulse is weak. (-) murmur, carotid bruits, peripheral edema Dental Pulmonary Breath sounds clear to auscultation Neurological Abdominal Anesthesia Plan ASA 3 (Moderate sedation) Anesthetic plan and risks discussed with patient. Use of blood products discussed with patient who consented to blood products. Plan discussed with attending. Additional Equipment Requests Normal [facility] BASIC METABOLIC PANELon 03-13 Anion gap [Moles/Vol] 10 mmol/L Normal 7-20 [facility] Comment on above: Performed By: #### L [id number] #### [facility] (BEAKER) [address] [place] [address] Calcium [Mass/Vol] 9.3 mg/dL Normal 8.6-10.3 [facility] Comment on above: Performed By: #### L [id number] #### [facility] (BEAKER) [address] [facility] [place] [address] Chloride [Moles/Vol] 106 mmol/L Normal 98-107 [facility] Comment on above: Performed By: #### L [id number] #### [facility] (BEAKER) [address] [place] [address] CO2 [Moles/Vol] 28 mmol/L Normal 21-31 [facility] Comment on above: Performed By: #### L [id number] #### [facility] ([facility] [address] [place] [address] Creatinine [Mass/Vol] 2.18 mg/dL High 0.70-1.30 [facility] Comment on above: Performed By: #### L [id number] #### [facility] ([facility]) [address] [place] [address] GLOMERULAR FILTRATION RATE ML/MIN/1.73 SQ M.PREDICTED 31.6 mL/min/1.73m*2 Low >60.0 [facility] Comment on above: Result Comment: The [facility]???s estimated glomerular filtration rate (eGFR) will no longer include consideration of race in its calculation. The National Kidney Foundation???s eGFR Task Force developed new recommendations for the estimation of the glomerular filtration rate in the [place] They recommend immediate implementation of the new equation refit without the race variable in all laboratories because the calculation does not include race. In addition to not including race in the calculation and reporting, it included diversity in its development, and has acceptable performance characteristics and potential consequences that do not disproportionately affect any one group of individuals. Performed By: #### L AB15 #### [facility] ([facility]) [address] [place] [address] Glucose [Mass/Vol] 102 mg/dL High 70-100 [facility] Comment on above: Performed By: #### L [id number] #### [facility] ([facility]) [address] [place] [address] Potassium [Moles/Vol] 4.4 mmol/L Normal 3.5-5.1 [facility] Comment on above: Performed By: #### L [id number] #### [facility] ([facility]) [address] [place] [address] Sodium [Moles/Vol] 140 mmol/L Normal 136-145 [facility] Comment on above: Performed By: #### L [id number] #### [facility] ([facility]) [address] [place] [address] Urea nitrogen [Mass/Vol] 34 mg/dL High 7-25 [facility] Comment on above: Performed By: #### L [id number] #### [facility] ([facility]) [address] [place] [address] UREA NITROGEN/CREATININE (MASS RATIO) IN SER/PLAS 15.6 Normal [facility] Comment on above: Performed By: #### L [id number] #### [facility] ([facility]) [address] [place] [address] CBCon 04-08-2025 Erythrocyte distribution width (RBC) [Ratio] 14.6 % Normal 11.5-15.0 [facility] Comment on above: Performed By: #### L [id number] ####[facility] ([facility])[address] [place] [address] ERYTHROCYTE MEAN CORPUSCULAR HEMOGLOBIN CONCENTRATION (G/DL) BY AUTOMATED 33.1 g/dL Normal 32.0-35.0 [facility] Comment on above: Performed By: #### L [id number] ####[facility] ([facility])[address] [place] [address] Hematocrit (Bld) [Volume fraction] 34.1 % Low 39.0-50.0 [facility] Comment on above: Performed By: #### L [id number] ####[facility] ([facility] [place] [address] Hemoglobin (Bld) [Mass/Vol] 11.3 g/dL Low 13.0-17.0 [facility] Comment on above: Performed By: #### L [id number] ####[facility] ([facility] [place] [address] MCH (RBC) [Entitic mass] 30.6 pg Normal 27.0-33.0 [facility] Comment on above: Performed By: #### L [id number] ####[facility] (BEAKER)[address] [place] [address] MCV (RBC) [Entitic vol] 92.4 fL Normal 82.0-98.0 [facility] Comment on above: Performed By: #### L [id number] ####[facility] (BEAKER)[address] [place] [address] PLATELETS (10*3/UL) IN BLOOD AUTOMATED COUNT 173 10*3/uL Normal 150-400 [facility] Comment on above: Performed By: #### L [id number] ####[facility] ([facility] [place] [address] RBC (Bld) [#/Vol] 3.69 10*6/uL Low 4.20-5.70 [facility] Comment on above: Performed By: #### L [id number] ####[facility] ([facility])[address] [place] [address] WBC (Bld) [#/Vol] 6.07 10*3/uL Normal 4.00-10.60 [facility] Comment on above: Performed By: #### L [id number] ####[facility] ([facility])[address] [place] [address] HPon 04-08-2025 HP -- Attestation signed by Sarah Tolliver MD at 04/08/2025 9:30 AM By using the attestations below, the signing clinician agrees that I have read and verify that the documentation has been personally reviewed by me and ensure that the documentation accurately reflects the encounter. GC: I personally saw this patient on the day of the encounter, performed the tafoya portion(s) of the service and participated in the management and confirm the resident's documentation. Please note there may be an additional personal documentation from me. Additional Comments: Mr Castillo Has been complaining of lifestyle-limiting bilateral calf claudication at predictable distance that is resolved with rest. Segmental leg pressures and ABIs were abnormal bilaterally indicating inflow disease. Initial plans for an noninvasive abdominal aortography and bilateral lower extremity angiogram was canceled due to his serum creatinine. After discussion with the patient and the family, it was elected to proceed with invasive angiography plus or minus intervention. He understands the risks including a higher than normal risk of renal failure and the need for dialysis given his baseline creatinine. Sarah Tolliver MD, MPH, [facility], [facility], [facility] Interventional Cardiology Pager Email: [email or web address] History Of Present Illness Kel Castillo is a 69 y.o. male presenting initally in clinic with leg pain. He has an extensive PMH of CAD s/p 3V CABG in 2009, CKD 4, PAD, HTN, HLD, COPD. His last cath was in 2019 which showed severe [place] CAD, patent SPRAGUE-LAD and SVG-OM but occluded radial-PDA. Aortogram at that time showed new severely calcific right REPAIRER FINISHED METAL lesion. His last TTE in 02/19/25 notes mild concentric LVH, EF 56%, grade 3 diastolic dysfunction, severe LA dilation, moderate pulmonary HTN with RVSP 46, moderate mitral regurg. He was initially planned for CTA angiogram for progressive leg pain symptoms however due to elevated creatinine (Cr 2 1 month ago) and severe symptoms, this was deferred in favor of invasive angiography. Past Medical History He has a past medical history of Cancer ([facility]), Coronary artery disease, Hyperlipidemia, and Hypertension. Surgical History He has a past surgical history that includes Cardiac catheterization and Coronary artery bypass graft. Social History He reports that he has quit smoking. His smoking use included cigarettes. He has never used smokeless tobacco. He reports that he does not currently use alcohol. No history on file for drug use. Allergies Patient has no known allergies. Medications Prescriptions Prior to Admission[1] Review of Systems Respiratory: Positive for shortness of breath. Negative for chest tightness. Cardiovascular: Negative for chest pain, palpitations and leg swelling. Musculoskeletal: Leg pain b/l Physical Exam Cardiovascular: Rate and Rhythm: Normal rate and regular rhythm. Heart sounds: Normal heart sounds. No murmur heard. Pulmonary: Effort: Pulmonary effort is normal. Breath sounds: Normal breath sounds. Musculoskeletal: Right lower leg: No edema. Left lower leg: No edema. Neurological: Mental Status: He is alert. Last Recorded Vitals Blood pressure 126/58, pulse 54, resp. rate 16, SpO2 99%. Relevant Results 01/12/25: Hb 11.5, WBC 5.5, plt 122. Na 145, K 4.3, Cl 110, CO2 26, BUN 30, Cr 1.87. 03/11/25: Cr 2.07 Assessment/Plan Principal Problem: Lower extremity pain, bilateral Plan: - IV hydration with NS @ 75 ml/h x 4 h - will proceed with aortogram w/ bilateral angiography Evgeny Arceo MD Back Order Clerk, PGY-[address] [facility] 04/08/25 9:15 AM [1] Medications Prior to Admission Medication Sig Dispense Refill Last Dose/Taking albuterol 90 mcg/actuation inhaler INHALE 1 PUFF BY MOUTH EVERY 4 HOURS NEEDED 04/08/2025 Morning amLODIPine (Norvasc) 5 mg tablet Take 1 tablet by mouth in the morning. 04/08/2025 Morning aspirin 81 mg EC tablet Take 1 tablet by mouth in the morning. 04/08/2025 Morning atorvastatin (Lipitor) 80 mg tablet Take 80 mg by mouth at bedtime. 04/07/2025 buPROPion XL (Wellbutrin XL) 300 mg 24 hr tablet Use 1 tablet in the mouth or throat in the morning. 04/08/2025 Morning busPIRone (Buspar) 15 mg tablet Take 1 tablet by mouth in the morning and at bedtime. 04/08/2025 Morning clopidogrel (Plavix) 75 mg tablet Take 75 mg by mouth in the morning. 04/08/2025 Morning famotidine (Pepcid) 20 mg tablet Take 20 mg by mouth twice a day. 04/08/2025 fenofibrate micronized (Antara) 43 mg capsule Take 1 capsule by mouth in the morning and at bedtime. 04/08/2025 Morning ferrous sulfate 325 (65 Fe) MG tablet Take 325 mg by mouth in the morning. 04/08/2025 Morning fluticasone-umeclidin- vilanter (Huy (more content not included)... [facility] NURSNOTEperri 04-08-2025 NURSNOTE RN educated pt on d/ c instructions. This included: site care, limited physical activity, resume normal diet, future appointments, medications, and moderate sedation instructions. RN educated pt on when to notify physician and when to go to the hospital. RN educated pt on importance of not overusing stairs at this time and limited weight bearing of 5lbs. RN encouraged pt to voice any questions or concerns, and answered any questions or concerns if pt verbalized. Pt was wheeled off of unit with all of belongings. [facility] Orders Onlyon 04-08-2025 Orders Only [id number] Kel Castillo 1955 M Date Provider Department Center 04/08/2025 REGINA JONES [facility] V[facility] LAB UT HeartVAS Family History Problem Relation Age of Onset Diabetes Mother Family Status - Relation Status Age at Mother [facility] CNPEmperatriz 04-05-2025 CNPN Telephone (AGCARDPOB ) SAMIR CASTILLO ([id number]) 1955 M Date Time Provider Department 04/05/25 BILL GANT AGCARDPOB During your visit today, we recorded the following information about you: Mariana Wheeler LPN 04/05/2025 4:03 PM Signed Chest x-ray results received from [employer]. Scanned in for review. 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 - empagliflozin (JARDIANCE) 10 mg tablet Take 1 tablet by mouth daily with breakfast. - OLANZapine (ZYPREXA) 5 mg tablet Take 5 mg by mouth daily at bedtime. - traZODone (DESYREL) 100 mg tablet Take 100 mg by mouth daily at bedtime. - albuterol HFA (PROVENTIL HFA, VENTOLIN HFA) [...] 1 TABLET BY MOUTH AT BEDTIME - famotidine (PEPCID) 20 mg tablet famotidine 20 mg tablet TAKE 1 TABLET BY MOUTH EVERY DAY AT BEDTIME NEEDED - Fenofibrate Micronized 43 mg capsule Take 43 mg by mouth twice daily. - isosorbide mononitrate ER (IMDUR) 60 mg 24 hr tablet isosorbide mononitrate ER 60 mg tablet,extended release 24 hr TAKE 1 TABLET BY MOUTH EVERY MORNING - metoprolol succinate ER (TOPROL XL) 50 mg 24 hr tablet metoprolol succinate ER 50 mg tablet,extended release 24 hr TAKE 1 TABLET BY MOUTH TWICE DAILY - nitroglycerin sublingual (NITROQUICK) 0.4 mg SL tablet nitroglycerin 0.4 mg sublingual tablet - sertraline (ZOLOFT) 100 mg tablet sertraline 100 mg tablet TAKE 1 AND 1/2 TABLETS BY MOUTH EVERY DAY - omega 7-vow-qyy-fish oil (FISH OIL) 100-160-1,000 mg cap Take by mouth. Problem List As Of Date 04/05/2025 Noted Resolved Dyspnea and respiratory abnormalities [R06.00, *02/09/2022 Recurrent major depression in partial remission*04/12/2022 MCI (mild cognitive impairment) [G31.84] 04/12/2022 Encounter Status:Closed by MARIANA WHEELER on 04/05/25 Normal [facility] XR CHEST 2 VWSon 04-05-2025 XR CHEST 2 VWS XR CHEST 2 VWS HISTORY: Other emphysema (CMS-HCC) COMPARISON: 02/26/2024 TECHNIQUE: PA and lateral views of the chest. FINDINGS: Unchanged cardiopericardial silhouette. Streaky opacities right lower lung potentially atelectasis or scarring. Volume loss right lung. No dense consolidation. No pneumothorax. No pleural effusion. IMPRESSION: Chronic lung disease without definite acute pulmonary process. Finalized by Roc Valverde MD on 04/05/2025 2:41 PM Normal [facility] MR CERVICAL SPINE WO CONTon 04-03-2025 MR CERVICAL SPINE WO CONT MR CERVICAL SPINE WO CONT HISTORY: A 69-year-old male with a history of the chronic neck pain. TECHNIQUE: Multiplanar and multisequence MRI examination of the cervical spine is performed. COMPARISON: Comparison is made with the plain film radiographs of the cervical spine of 01/11/2025. FINDINGS: The vertebral heights are normal. There are severe disc degenerative changes at C5-C6 and C6-C7. There is a heterogeneous marrow signal from degenerative arthritis. No acute bony pathology seen. There is loss of normal cervical lordosis but no spondylolisthesis is identified. No significant prevertebral soft tissue abnormality seen. At C2-C3, C3-C4 and C4-C5, there is no evidence of disc herniation, spinal stenosis or narrowing of the neural foramina. At C5-C6 and C6-C7, there are severe disc degenerative changes. Associated disc bulging is seen.. Moderate degree of spinal stenosis and narrowing of the neural foramina are seen at these levels. Facet arthropathy seen at these levels. At C7-T1, there is no evidence of disc herniation, spinal stenosis or narrowing of the neural foramina. Cervical spinal cord is normal in morphology and signal intensity. No evidence of cord edema or myelomalacia. IMPRESSION: * Severe disc degenerative disease and facet arthropathy at C5-C6 and C6-C7 with moderate degree of spinal stenosis and narrowing of the neural foramina. Associated minimal disc bulging is seen at these levels. * No evidence of disc herniation or spinal stenosis at other levels in the cervical region. * No evidence of cord edema or myelomalacia. Finalized by Kana Swain MD on 04/03/2025 12:02 PM Normal [facility] NT-PROBNP SERPL-MCNCon 0 04-01-2025 Natriuretic peptide B (Bld) [Mass/Vol] 4813 pg/mL High NINF - 125 pg/mL [facility] Specimen Type: BLOOD SPECIMEN Ordering Facility: [facility] Address: [address] [place] [address] Original Ordering Provider: BILL GANT CLINISYMO CNOVon 04-01-2025 CNOV Office Visit (AGCARDPOB) SAMIR CASTILLO ([id number]) 1955 M Date Time Provider Department 04/01/25 2:20 PM BILL GANT AGCARDPOB During your visit today, we recorded the following information about you: Pulse Blood pressure Weight Height 59/minute 123/58 74.8 kg 1.676 m Bill Gant MD 04/01/2025 3:11 PM Signed Chief Complaint No chief complaint on file. History of Present Illness: Samir Castillo is a 69-year-old male with a history of CAD, status post-CABG, HTN, HLD, COPD, PAD, stage 4 CKD, and mild cognitive impairment, presenting for a new patient visit. He lives in [place] and gets most of his care in [place] at [facility] but just wants a second opinion on overall management. He underwent a heart catheterization 11 years ago, revealing a chronically occluded RCA that could not be opened, a patent SPRAGUE to the LAD, a patent radial graft to the obtuse marginal artery, and an occluded saphenous vein graft to the PDA. His LVEF was 50-55% at that time. A recent echocardiogram in February showed an LVEF of 55%, grade 3 diastolic dysfunction, mild to moderate pulmonary hypertension, and moderate mitral regurgitation. He has not had a stress test in the past few years. He denies experiencing angina, chest pain, palpitations, syncope, or severe dizziness. He reports dyspnea on exertion, particularly when walking short distances or climbing stairs. He denies any history of stroke, DVT, or PE. He has not had any recent chest X-rays or CT scans. He reports significant leg weakness and pain, particularly in the ankles and calves, leading to frequent falls. He denies any tingling sensations. He has not seen a neurologist or vascular surgeon for these symptoms. He uses furniture for support when walking at home and is currently in a wheelchair. He has a scheduled procedure next week to evaluate his leg arteries. He has a history of lung cancer with partial lobectomy performed 30 years ago. He denies any current use of supplemental oxygen. 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 He denies any history of diabetes, liver disease, or excessive alcohol use. He denies any internal bleeding or significant bruising. He denies any use of NSAIDs such as Advil or Aleve. He has a history of mild cognitive impairment and is no longer driving. He relies on his family for transportation. He worked at a [employer] before retiring. He quit smoking 40 years ago. He is currently taking aspirin and Plavix. Recent lab results include a creatinine of 1.9 mg/dL and potassium of 4.3 mmol/L in January, and HDL of 42 mg/dL and LDL of 52 mg/dL in October. No past medical history on file. No past surgical history on file. No family history on file. SOCIAL HISTORY[1] ALLERGIES No Known Allergies Medications: Current Outpatient Medications Medication Sig Dispense Refill traZODone (DESYREL) 100 mg tablet Take 100 [...] SL tablet nitroglycerin 0.4 mg sublingual tablet sertraline (ZOLOFT) 100 mg tablet sertraline 100 mg tablet TAKE 1 AND 1/2 TABLETS BY MOUTH EVERY DAY omega 3-svt-znx-fish oil (FISH OIL) 100-160-1,000 mg cap Take by mouth. No current facility-administered medications for this visit. ROS Physical Examination: Vitals: BP 123/58 (BP Site: Left Arm, BP Position: Sitting, BP Cuff Size: Regular Adult) Pulse (!) 59 Ht 5' 6 (1.676 m) Wt 165 lb (74.8 kg) SpO2 99% BMI 26.63 kg/m? Last 2 Encounter Wt Readings: Date: Wt: 10/12/2024 169 (more content not included)... Normal [facility] ECG B/O W INTERP (MED OFFICE )on 04-01-2025 Normal sinus rhythm nonspecific ST-T changes septal Q waves [facility] NT PRO BNPon 04-01-2025 Natriuretic peptide.B prohormone N-Terminal [Mass/Vol] 4813 pg/mL High NINF - 125 pg/mL [facility] NT-proBNP [facility] Natriuretic peptide.B prohormone N-Terminal [Mass/Vol] 4813 pg/mL High <125 [facility] Comment on above: Order Comment: Speci men Type: BLOOD SPECIMEN Ordering Facility: [facility] Address: [address] [place] [address] Performed By: #### 3 [id number] #### [facility] CLIA [id number] [address] [place] No Panel Informationon 04-01 Interpretation and review of laboratory results Abnormal [facility] 36on 03-11-2025 36 Spoke with daughter and informed her I would put orders in and [facility] would be contacting her to set this up. I advised her her father would need lab orders about 1 week prior to scheduled procedure. She verbalized understanding. Orders entered and faxed to [facility]. [facility] 36 Spoke with his daughter Nini. She says he's having extreme leg pain . You aren't here in [place] again for another 4 weeks. Daughter would like to proceed with LE angiogram if that's ok with you? [facility] 36 I received a call fr om radiology at [facility]. This patient is here now for CTA abdomen/pelvis. Due to elevated s. creatinine (2.07, GFR 32), the test was unable to be performed. Would you like him to try again? How long should he wait to get it rescheduled? Thanks. [facility] Orders Onlyon 03-11-2025 Orders Only [id number] Kel Castillo 1955 M Date Provider Department Center 03/11/2025 Ruben-MELODY OLIVA [facility] Family History Problem Relation Age of Onset Diabetes Mother Family Status - Relation Status Age at Mother [facility] CREATININEon 03-11-2025 Creatinine [Mass/Vol] 2.07 mg/dL High 0.70 - 1.30 mg/dL [facility] Healthcare GFR/1.73 sq M.predicted CKD-EPI (S/P/Bld) [Vol rate/Area] 39 Low >=60 mL/min/1.73m 2 [facility] Interpretation and review of laboratory results Abnormal [facility] EGFR-NON AF [place] 32 Low >=60 mL/min/1.73m 2 [facility] CLINISYNC [facility] 36on 02-25-2025 36 See telephone note o n 02/24/[address] Tolliver. [facility] 36on 02-24-2025 36 Regarding HUBER's performed on 02/18/2025: MD Melody Juarez MA If the patient is having leg pain, please order an abdominal CTA with run offs (bilateral lower extremity angiography) Thanks. Spoke with patient's daughter and she states he's having lots of leg pain. Told her Dr. Tolliver would like further testing and she agreed. Order faxed to [facility]. Daughter verbalized understanding. [facility] 34 Spoke to daughter advised her of Dr. Levi ECHO findings. Daughter verbalized understanding. Daughter is requesting results of HUBER'S advised daughter as soon as Reviews them we will call her with the results. Daughter states she is very concerned with what she read on [employer] about HUBER test results [facility] SEGMENTAL BLOOD PRESSUREon 0 02-23-2025 [place] [address] Cardiology Report Signed Patient: KEL CASTILLO Jr. MR#: [id number] : 1955 Acct:[id number] Age/Sex: 69 / M ADM Date: 02/18/25 Loc: CARD Attending Dr: Sarah Tolliver M.D. Ordering Physician: Sarah Tolliver M.D. Date of Service: 02/18/25 Procedure(s): CA segmental UE or LE LEENA Accession Number(s): [id number] cc: Susan Watsno NP; Sarah Tolliver M.D. [facility] Test Date: 2025-02-18 Pat Name: KEL CASTILLO Department: Room: - Gender: Male Animal Physiologist: : 1955 Requested By: SARAH TOLLIVER Order Number: [id number] Reading MD: SARAH TOLLIVER Interpretive Statements Bilateral, moderately reduced ankle-brachial indices. 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 Recommend further imaging with CT or invasive angiography. Electronically Signed On 02-23-2025 12:52:03 EDT by SARAH TOLLIVER Dictated By: Sarah Tolliver M.D. Signed By: 02/23/25 1252 02/23/25 125 DD/ TD/TT: Product Development Chemist: [facility] Radiology, Radiologist, MD - 02/23/2025 [place] [address] Cardiology Report Signed Patient: KEL CASTILLO Jr. MR#: [id number] : 1955 Acct:[id number] Age/Sex: 69 / M ADM Date: 02/18/25 Loc: CARD Attending Dr: Sarah Tolliver M.D. Ordering Physician: Sarah Tolliver M.D. Date of Service: 02/18/25 Procedure(s): CA segmental UE or LE LEENA Accession Number(s): [id number] cc: Susan Watson NP; Sarah Tolliver M.D. [facility] Test Date: 2025-02-18 Pat Name: KEL CASTILLO Department: Room: - Gender: Male Animal Physiologist: : 1955 Requested By: SARAH TOLLIVER Order Number: [id number] Reading MD: SARAH TOLLIVER Interpretive Statements Bilateral, moderately reduced ankle-brachial indices. 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 Recommend further imaging with CT or invasive angiography. Electronically Signed On 02-23-2025 12:52:03 EDT by SARAH TOLLIVER Dictated By: Sarah Tolliver M.D. Signed By: 02/23/25 1252 02/23/25 125 DD/ 0 TD/TT: Product Development Chemist: [employer] SEGMENTAL BLOOD PRESSUREOrde red By: Radiologist Radiology on 02-23-2025 [employer] Work Phone: 36on 02-22-2025 36 Patient's daughter called asking about result of echo. It was just scanned into you about 10 minutes ago. She saw the result from [facility] portal Saturday night and was concerned when she saw the word severe in the result. Daughter told me she called the [facility] physician special education director Saturday night. I told her it was fine to wait until you reviewed result and I would call her. Thanks. Normal [facility] Telephoneon 02-22-2025 Telephone [phone] Kel Castillo 1955 M Date Provider Department [facility] Family History Problem Relation Age of Onset Diabetes Mother Family Status - Relation Status Age at Mother [facility] CA ECHO DOPPLER COMPLETEon 0 02-19-2025 [place] [address] Cardiology Report Signed Patient: KEL CASTILLO Jr. MR#: [id number] : 1955 Acct:[id number] Age/Sex: 69 / M ADM Date: 02/18/25 Loc: CARD Attending Dr: Sarah Tolliver M.D. Ordering Physician: Sarah Tolliver M.D. Date of Service: 02/18/25 Procedure(s): CA echo doppler complete Accession Number(s): [id number] cc: Susan Watson DIRECT CARE STAFFER; Sarah Tolliver M.D. Patient Name: KEL CASTILLO MR#: [id number] : 1955 Exam Date: 02/18/2025 Ordering Doctor: DR SARAH TOLLIVER M.D. ECHOCARDIOGRAM REPOR PROCEDURE: CA ECHO DOPPLER COMPLETE INDICATIONS: Dyspnea on exertion, CABGx3, hypertension COMPARISON: None. DESCRIPTION: COMPLETE ECHOCARDIOGRAM Real-time transthoracic echocardiography with 2D, M-mode, spectral and color flow Doppler performed. QUALITY: Technical quality was good. LEFT VENTRICLE: Normal chamber size. Mild concentric left ventricular hypertrophy. Calculated left ventricular ejection fraction is 56%. LV EF: Normal left ventricular ejection fraction, (>55%). DIASTOLIC: Grade III diastolic dysfunction. ATRIAL SEPTUM: Visually appears intact. LEFT ATRIUM: Severe dilatation. RIGHT ATRIUM: Mild dilatation. RIGHT VENTRICLE: Normal chamber size. Normal right ventricular systolic function. TRICUSPID VALVE: Normal mobility and thickness. No stenosis with mild regurgitation. Doppler studies reveal mildly (35-45) elevated right sided pressures.RVSP 46 mmHg MITRAL VALVE: Normal mobility and thickness. No evidence of mitral valve stenosis. There is no mitral annular calcification. Moderate mitral regurgitation. AORTIC VALVE: Normal trileaflet appearance. Thickened aortic valve. Normal leaflet mobility. No evidence of aortic valve stenosis. No aortic regurgitation. AORTIC ROOT: Normal diameter and appearance. Ascending aorta is normal in size. PULMONIC VALVE: Normal thickness and mobility. No stenosis. Trivial regurgitation. PERICARDIUM: No evidence of pericardial effusion. IVC: Collapes with inspirations. IVC is normal in size. PLEURA: CONCLUSION: Mild concentric left ventricular hypertrophy Normal left ventricle systolic function without wall motion abnormalities, ejection fraction 56% Grade 3 diastolic dysfunction Severely dilated left atrium Normal right ventricular size and systolic function Moderate pulmonary hypertension, RVSP 46 mmHg Moderate mitral regurgitation Mild tricuspid regurgitation Adult Echocardiography Procedure Report Left Ventricle LVEDD (3.7 - 5.6 cm): 5.04 cm LVESD (2.2 - 4.0 cm): 3.74 cm LVIVS thickness (0.6 - 1.2 cm): 0.98 cm LVPW thickness (0.5 - 1.0 cm): 1.20 cm e': 0.07 m/s E - e': 15.82 LVOT Max Gradient: 2.23 mm[Hg] LVOT Area (cm2): 0.75 m/s Peak Velocity (LVOT): 0.75 m/s Mean Velocity (LVOT): 0.53 m/s LVOT Diameter 2.34 cm Left Ventricular Ejection Fraction: 56.16 % Left Atrium LA Volume Index (2D A2C): 59.58 ml/m2 Left Atrium Systolic Dimension: 4.87 cm Mitral Valve MV E to A Ratio: 2.05 MV Max Gradient: MV Mean Gradient: Mitral Valve A-Wave Peak Velocity: 0.51 m/s Mitral Valve E-Wave Peak Velocity: 1.04 m/s Cardiovascular Orifice Area: Right Ventricle RV Internal Diastolic Dimension: Aorta AO Root Diam: 3.25 cm Ascending Ao Diam: 2.79 cm Aortic Valve AoV Area (Peak Andre): 2.17 cm2, 2.17 cm2 AoV Area (VTI): 2.12 cm2, 2.12 cm2 Deceleration Platte: Pressure Half-Time: Peak Velocity(Antegrade Flow): 1.47 m/s Peak Gradient(Antegrade Flow): 8.67 mm[Hg] Mean Velocity(Antegrade Flow): 0.98 m/s Mean Gradient(Antegrade Flow): 4.49 mm[Hg] Velocity Time Integral: 37.64 cm Tricuspid Valve Peak Velocity (Regurgitant Flow): 2.39 m/s, 3.11 m/s, 3.28 m/s Peak Velocity: Pulmonic Valve Mean Gradient: Mean Velocity: (more content not included)... [facility] Radiology, Radiologist, MD - 02/19/2025 [place] [address] Cardiology Report Signed Patient: KEL CASTILLO Jr. MR#: [id number] : 1955 Acct:[id number] Age/Sex: 69 / M ADM Date: 02/18/25 Loc: CARD Attending Dr: Sarah Tolliver M.D. Ordering Physician: Sarah Tolliver M.D. Date of Service: 02/18/25 Procedure(s): CA echo doppler complete Accession Number(s): [id number] cc: Susan Watson DIRECT CARE STAFFER; Sarah Tolliver M.D. Patient Name: KEL CASTILLO MR#: [id number] : 1955 Exam Date: 02/18/2025 Ordering Doctor: DR SARAH TOLLIVER M.D. ECHOCARDIOGRAM REPOR PROCEDURE: CA ECHO DOPPLER COMPLETE INDICATIONS: Dyspnea on exertion, CABGx3, hypertension COMPARISON: None. DESCRIPTION: COMPLETE ECHOCARDIOGRAM Real-time transthoracic echocardiography with 2D, M-mode, spectral and color flow Doppler performed. QUALITY: Technical quality was good. LEFT VENTRICLE: Normal chamber size. Mild concentric left ventricular hypertrophy. Calculated left ventricular ejection fraction is 56%. LV EF: Normal left ventricular ejection fraction, (>55%). DIASTOLIC: Grade III diastolic dysfunction. ATRIAL SEPTUM: Visually appears intact. LEFT ATRIUM: Severe dilatation. RIGHT ATRIUM: Mild dilatation. RIGHT VENTRICLE: Normal chamber size. Normal right ventricular systolic function. TRICUSPID VALVE: Normal mobility and thickness. No stenosis with mild regurgitation. Doppler studies reveal mildly (35-45) elevated right sided pressures.RVSP 46 mmHg MITRAL VALVE: Normal mobility and thickness. No evidence of mitral valve stenosis. There is no mitral annular calcification. Moderate mitral regurgitation. AORTIC VALVE: Normal trileaflet appearance. Thickened aortic valve. Normal leaflet mobility. No evidence of aortic valve stenosis. No aortic regurgitation. AORTIC ROOT: Normal diameter and appearance. Ascending aorta is normal in size. PULMONIC VALVE: Normal thickness and mobility. No stenosis. Trivial regurgitation. PERICARDIUM: No evidence of pericardial effusion. IVC: Collapes with inspirations. IVC is normal in size. PLEURA: CONCLUSION: Mild concentric left ventricular hypertrophy Normal left ventricle systolic function without wall motion abnormalities, ejection fraction 56% Grade 3 diastolic dysfunction Severely dilated left atrium Normal right ventricular size and systolic function Moderate pulmonary hypertension, RVSP 46 mmHg Moderate mitral regurgitation Mild tricuspid regurgitation Adult Echocardiography Procedure Report Left Ventricle LVEDD (3.7 - 5.6 cm): 5.04 cm LVESD (2.2 - 4.0 cm): 3.74 cm LVIVS thickness (0.6 - 1.2 cm): 0.98 cm LVPW thickness (0.5 - 1.0 cm): 1.20 cm e': 0.07 m/s E - e': 15.82 LVOT Max Gradient: 2.23 mm[Hg] LVOT Area (cm2): 0.75 m/s Peak Velocity (LVOT): 0.75 m/s Mean Velocity (LVOT): 0.53 m/s LVOT Diameter 2.34 cm Left Ventricular Ejection Fraction: 56.16 % Left Atrium LA Volume Index (2D A2C): 59.58 ml/m2 Left Atrium Systolic Dimension: 4.87 cm Mitral Valve MV E to A Ratio: 2.05 MV Max Gradient: MV Mean Gradient: Mitral Valve A-Wave Peak Velocity: 0.51 m/s Mitral Valve E-Wave Peak Velocity: 1.04 m/s Cardiovascular Orifice Area: Right Ventricle RV Internal Diastolic Dimension: Aorta AO Root Diam: 3.25 cm Ascending Ao Diam: 2.79 cm Aortic Valve AoV Area (Peak Andre): 2.17 cm2, 2.17 cm2 AoV Area (VTI): 2.12 cm2, 2.12 cm2 Deceleration Platte: Pressure Half-Time: Peak Velocity(Antegrade Flow): 1.47 m/s Peak Gradient(Antegrade Flow): 8.67 mm[Hg] Mean Velocity(Antegrade Flow): 0.98 m/s Mean Gradient(Antegrade Flow): 4.49 mm[Hg] Velocity Time Integral: 37.64 cm Tricuspid Valve Peak Velocity (Regurgitant Flow): 2.39 m/s, 3.11 m/s, 3.28 m/s Peak Velocity: Pulmonic Valve Mean Gradient: Mean Velocity: Peak Velocity: Peak Gradient: 4.26 mm[Hg], 3.82 mm[Hg] Right Atrium Right Atrium Systolic Pressure: 49.58 ml, 49.58 ml Dictated by: Shana Cerrato MD on 02/19/2025 at 18:13 Approved by: Shana Cerrato MD on 02/19/2025 at 18:22 Dictated By: Shana Cerrato M.D. Signed By: 02/19/251822 DD/ 21 TD/TT: Product Development Chemist: [facility] Radiology Study observation (narrative) [facility] CA ECHO DOPPLER COMPLETEOrde red By: Radiologist Radiology on 02-19-2025 [facility] Work Phone: SEGMENTAL BLOOD PRESSUREon 0 02-18-2025 Radiology Study observation (narrative) [facility] CBC (NO DIFF)on 01-12-2025 Erythrocyte distribution width (RBC) [Ratio] 14.9 % Normal 11.5-15 [facility] Comment on above: Performed By: #### U A #### [facility] ([id number]) [address], [address] [place] [address] Hematocrit (Bld) [Volume fraction] 34.1 % Low 39-50 [facility] Comment on above: Performed By: #### U A #### [facility] ([id number]) [address], [address] [place] [address] Hemoglobin (Bld) [Mass/Vol] 11.5 g/dL Low 13-17 [facility] Comment on above: Performed By: #### U A #### [facility] ([id number]) [address], [address] [place] [address] MCH (RBC) [Entitic mass] 30.6 pg Normal 27-34 [facility] Comment on above: Performed By: #### U A #### [facility] ([id number]) [address], [address] [place] [address] MCHC (RBC) [Mass/Vol] 33.6 g/dL Normal 32-36 [facility] Comment on above: Performed By: #### U A #### [facility] ([id number]) [address], [address] [place] [address] MCV (RBC) [Entitic vol] 91 fL Normal 80-100 [facility] Comment on above: Performed By: #### U A #### [facility] ([id number]) [address], [address] [place] [address] Platelet mean volume (Bld) [Entitic vol] 7.5 fL Normal 7-12 [facility] Comment on above: Performed By: #### U A #### [facility] ([id number]) [address], [address] [place] [address] Platelets (Bld) [#/Vol] 122 10*3/uL Low 150-450 [facility] Comment on above: Performed By: #### U A #### [facility] ([id number]) [address], [address] [place] [address] RBC COUNT 3.75 X10E12/L Low 4.1-5.7 [facility] Comment on above: Performed By: #### U A #### [facility] ([id number]) [address], [address] [place] [address] WBC (Bld) [#/Vol] 5.5 10*3/uL Normal 4-11 [facility] Comment on above: Performed By: #### U A #### [facility] ([id number]) [address], [address] [place] [address] MAGNESIUMon 01-12-2025 Magnesium [Mass/Vol] 2.0 mg/dL Normal 1.8-2.6 [facility] Comment on above: Performed By: #### U A #### [facility] ([id number]) [address] [place] [address], [address] [place] [address] MICROALBUMIN / CREATININE UR INE RATIOon 01-12-2025 Albumin DL <= 20 mg/L (U) [Mass/Vol] 0.9 mg/dL Normal 0.0-1.9 [facility] Comment on above: Performed By: #### C BC, 6-4, 2730-8, 2131-9, 2283-8, 17806- 6, FEPR, 24512-8, LIVR, 35461-5, RENAL, 3084-1 #### [facility] ([id number]) [address], [address] [place] [address] MALB/CREAT RATIO 6.8 mg/g Normal 0.0-30.0 [facility] Comment on above: Performed By: #### C BC, 6-4, 2730-8, 2131-9, 2283-8, 68071- 6, FEPR, 56404-5, LIVR, 58715-0, RENAL, 3084-1 #### [facility] ([id number]) [address], [address] [place] [address] URINE CREATININE,RDM 132.37 mg/dL Normal [facility] Comment on above: Performed By: #### C BC, 6-4, 1-8, 2132-9, 2284-8, 66695- 6, FEPR, 77757-6, LIVR, 67493-4, RENAL, 3084-1 #### [facility] ([id number]) [address], [address] [place] [address] RENAL PANELon 01-12-2025 Albumin [Mass/Vol] 4.1 g/dL Normal 3.2-5.3 [facility] Comment on above: Performed By: #### U A #### [facility] ([id number]) [address], [address] [place] [address] Anion gap [Moles/Vol] 9 mmol/L Normal 5-15 [facility] Comment on above: Performed By: #### U A #### [facility] ([id number]) [address], [address] [place] [address] Calcium [Mass/Vol] 9.1 mg/dL Normal 8.5-10.5 [facility] Comment on above: Performed By: #### U A #### [facility] ([id number]) [address], [address] [place] [address] Chloride [Moles/Vol] 110 mmol/L High 98-109 [facility] Comment on above: Performed By: #### U A #### [facility] ([id number]) [address], [address] [place] [address] CO2 [Moles/Vol] 26 mmol/L Normal 22-32 [facility] Comment on above: Performed By: #### U A #### [facility] ([id number]) [address] [place] [address] Creatinine [Mass/Vol] 1.87 mg/dL High 0.60-1.30 [facility] Comment on above: Result Comment: METH OD TRACEABLE TO IDMS STANDARD Performed By: #### U A #### [facility] ([id number]) [address], [address] [place] [address] GFR/1.73 sq M.predicted among non-blacks MDRD (S/P/Bld) [Vol rate/Area] 38 mL/min/{1.73_m2} Low >=60 [facility] Comment on above: Result Comment: Repo rted eGFR is based on the CKD-EPI 2020 equation that does not use a race coefficient. Performed By: #### U A #### [facility] ([id number]) [address], [address] [place] [address] Glucose [Mass/Vol] 93 mg/dL Normal 65-99 [facility] Comment on above: Performed By: #### U A #### [facility] ([id number]) [address], [address] [place] [address] Phosphate [Mass/Vol] 4.0 mg/dL Normal 2.4-4.9 [facility] Comment on above: Performed By: #### U A #### [facility] ([id number]) [address], [address] [place] [address] Potassium [Moles/Vol] 4.3 mmol/L Normal 3.5-5.0 [facility] Comment on above: Performed By: #### U A #### [facility] ([id number]) [address], [address] [place] [address] Sodium [Moles/Vol] 145 mmol/L Normal 134-146 [facility] Comment on above: Performed By: #### U A #### [facility] ([id number]) [address], [address] [place] [address] Urea nitrogen [Mass/Vol] 30 mg/dL High 5-27 [facility] Comment on above: Performed By: #### U A #### [facility] ([id number]) [address], [address] [place] [address] URINALYSISon 01-12-2025 Bilirubin Ql (U) Negative Normal Negative [facility] Comment on above: Performed By: #### U A #### [facility] ([id number]) [address], [address] [place] [address] BLOOD/HGB Negative Normal Negative [facility] Comment on above: Performed By: #### U A #### [facility] ([id number]) [address], [address] [place] [address] Color (U) Yellow Normal Yellow, Colorless [facility] Comment on above: Performed By: #### U A #### [facility] ([id number]) [address], [address] [place] [address] Glucose Ql (U) Negative Normal Negative [facility] Comment on above: Performed By: #### U A #### [facility] ([id number]) [address] [place] [address] Ketones Ql (U) Negative Normal Negative [facility] Comment on above: Performed By: #### U A #### [facility] ([id number]) [address], [address] [place] [address] Leukocyte esterase Test strip Ql (U) Negative Normal Negative [facility] Comment on above: Performed By: #### U A #### [facility] ([id number]) [address] [place] [address] Nitrite Ql (U) Negative Normal Negative [facility] Comment on above: Performed By: #### U A #### [facility] ([id number]) [address], [address] [place] [address] PH,URINE 6.0 Normal 5.0-8.5 [facility] Comment on above: Performed By: #### U A #### [facility] ([id number]) [address], [address] [place] [address] Protein Ql (U) Negative Normal Negative [facility] Comment on above: Performed By: #### U A #### [facility] ([id number]) [address], [address] [place] [address] Specific gravity (U) [Rel density] 1.018 Normal 1.003-1.035 [facility] Comment on above: Performed By: #### U A #### [facility] ([id number]) [address], [address] [place] [address] TURBIDITY Clear Normal Clear [facility] Comment on above: Performed By: #### U A #### [facility] ([id number]) [address] [place] [address] UROBILINOGEN <1.1 eu/dL Normal <1.1 eu/dL [facility] Comment on above: Performed By: #### U A #### [facility] ([id number]) [address] [place] [address] XR SPINE CERVICAL 3 VWS OR L [...] Wild MD on 01/12/2025 12:57 AM Normal [facility] COMPLETE BLOOD COUNTon 10-20 Erythrocyte distribution width (RBC) [Ratio] 15.0 % Normal 11.5-15.0 [facility] Comment on above: Performed By: #### C BC, 2276-4, 2731-8, 2132-9, 2284-8, 08374- 6, FEPR, 26880-6, LIVR, 33641-2, RENAL, 3084-1 #### [facility] ([id number]) [address], [address] [place] [address] Hematocrit (Bld) [Volume fraction] 36.4 % Low 39-49 [facility] Comment on above: Performed By: #### C BC, 6-4, 1-8, 2131-9, 2283-8, 97410- 6, FEPR, 74756-2, LIVR, 70270-3, RENAL, 3084-1 #### [facility] ([id number]) [address], [address] [place] [address] Hemoglobin (Bld) [Mass/Vol] 12.5 g/dL Low 13.0-17.0 [facility] Comment on above: Performed By: #### C BC, 2275-4, 2730-8, 2131-9, 2283-8, 53371- 6, FEPR, 37364-3, LIVR, 25134-7, RENAL, 3084-1 #### [facility] ([id number]) [address], [address] [place] [address] MCH (RBC) [Entitic mass] 30.8 pg Normal 27-34 [facility] Comment on above: Performed By: #### C BC, 6-4, 2730-8, 2131-9, 2283-8, 38841- 6, FEPR, 04697-7, LIVR, 17444-7, RENAL, 3084-1 #### [facility] ([id number]) [address], [address] [place] [address] MCHC (RBC) [Mass/Vol] 34.4 g/dL Normal 32-36 [facility] Comment on above: Performed By: #### C BC, 6-4, 1-8, 2-9, 228-8, 11384- 6, FEPR, 32684-5, LIVR, 44203-5, RENAL, 3084-1 #### [facility] ([id number]) [address] [place] [address] MCV (RBC) [Entitic vol] 89 fL Normal 80-100 [facility] Comment on above: Performed By: #### C BC, 6-4, 1-8, 2132-9, 2284-8, 00594- 6, FEPR, 40324-7, LIVR, 56895-0, RENAL, 3084-1 #### [facility] ([id number]) [address] [place] [address] Platelet mean volume (Bld) [Entitic vol] 7.4 fL Normal 7-12 [facility] Comment on above: Performed By: #### C JENNY, 6-4, 1-8, 2-9, 4-8, 22130- 6, FEPR, 64504-2, LIVR, 13423-2, RENAL, 308-1 #### [facility] ([id number]) [address] [place] [address] Platelets (Bld) [#/Vol] 145 10*3/uL Low 150-450 [facility] Comment on above: Performed By: #### C JENNY, 6-4, 1-8, 2-9, 2284-8, 07863- 6, FEPR, 50381-1, LIVR, 20086-1, RENAL, 3083-1 #### [facility] ([id number]) [address] [place] [address] RBC COUNT 4.08 X10E12/L Low 4.10-5.70 [facility] Comment on above: Performed By: #### C BC, 6-4, 1-8, 2-9, 2284-8, 12185- 6, FEPR, 02895-7, LIVR, 38735-1, RENAL, 3084-1 #### [facility] ([id number]) [address] [address], [address] [place] [address] WBC (Bld) [#/Vol] 5.3 10*3/uL Normal 4.0-11.0 [facility] Comment on above: Performed By: #### C BC, 2276-4, 2731-8, 2132-9, 2284-8, 83072- 6, FEPR, 86441-2, LIVR, 76942-7, RENAL, 3084-1 #### [facility] ([id number]) [address] [address], [address] [place] [address] FERRITINon 10-20-2024 Ferritin [Mass/Vol] 67 ng/mL Normal 24-336 [facility] Comment on above: Performed By: #### C BC, 2276-4, 2731-8, 2132-9, 2284-8, 12954- 6, FEPR, 94380-1, LIVR, 98041-8, RENAL, 3084-1 #### [facility] ([id number]) [address], [address] [place] [address] Folate [Mass/Vol]on 10-21-19 25 FOLIC ACID 24.5 ng/mL Normal >5.8 [facility] Comment on above: Result Comment: NEW REFERENCE RANGE Performed By: #### C BC, 2276-4, 2731-8, 2132-9, 2284-8, 80428-8, FEPR, 59753-9, LIVR, 17912-8, RENAL, 3084-1 #### [facility] ([id number]) [address] [facility], [address] [place] [address] IRON PROFILEon 10-20-2024 Iron [Mass/Vol] 75 ug/dL Normal 50-212 [facility] Comment on above: Performed By: #### C BC, 2276-4, 2731-8, 2132-9, 2284-8, 55215- 6, FEPR, 05830-3, LIVR, 55287-7, RENAL, 3084-1 #### [facility] ([id number]) [address] [place] [address] IRON BINDING 392 ug/dL Normal 250-425 [facility] Comment on above: Performed By: #### C BC, 2276-4, 2731-8, 2132-9, 2284-8, 12148- 6, FEPR, 52358-0, LIVR, 92692-7, RENAL, 3084-1 #### [facility] ([id number]) [address], [address] [place] [address] IRON SATURATION 19 % SATURATION Low 20-50 [facility] Comment on above: Performed By: #### C BC, 2276-4, 2731-8, 2-9, 2284-8, 24222- 6, FEPR, 61269-1, LIVR, 09842-0, RENAL, 3084-1 #### [facility] ([id number]) [address] [place] [address] LIVER PANELon 10-20-2024 Albumin [Mass/Vol] 4.3 g/dL Normal 3.2-5.3 [facility] Comment on above: Performed By: #### U A #### [facility] ([id number]) [address], [address] [place] [address] ALP [Catalytic activity/Vol] 48 U/L Normal 39-130 [facility] Comment on above: Performed By: #### U A #### [facility] ([id number]) [address], [address] [place] [address] ALT [Catalytic activity/Vol] 28 U/L Normal 0-40 [facility] Comment on above: Performed By: #### U A #### [facility] ([id number]) [address], [address] [place] [address] AST [Catalytic activity/Vol] 33 U/L Normal 0-41 [facility] Comment on above: Performed By: #### U A #### [facility] ([id number]) [address], [address] [place] [address] Bilirubin [Mass/Vol] 0.6 mg/dL Normal 0.3-1.2 [facility] Comment on above: Performed By: #### U A #### [facility] ([id number]) [address], [address] [place] [address] Bilirubin.direct [Mass/Vol] 0.2 mg/dL Normal 0.0-0.4 [facility] Comment on above: Performed By: #### U A #### [facility] ([id number]) [address], [address] [place] [address] Protein [Mass/Vol] 6.7 g/dL Normal 6.0-8.0 [facility] Comment on above: Performed By: #### U A #### [facility] ([id number]) [address], [address] [place] [address] Lipid 1996 panelon 5 Cholesterol [Mass/Vol] 119 mg/dL Low 150-200 [facility] Comment on above: Performed By: #### C BC, 2276-4, 2731-8, 2132-9, 2284-8, 87098- 6, FEPR, 74877-3, LIVR, 68023-6, RENAL, 3084-1 #### [facility] ([id number]) [address], [address] [place] [address] Cholesterol in HDL [Mass/Vol] 42 mg/dL Normal >39 [facility] Comment on above: Result Comment: HDL <40 mg/dL - High Risk HDL > or = 40mg/dL- Desirable HDL >60 mg/dL - Negative Risk Performed By: #### Ben ALVARADO, 6-4, 1-8, 2-9, 2284-8, 22072-9, FEPR, 36163-0, LIVR, 11378-9, RENAL, 3084-1 #### [facility] ([id number]) [address] [place] [address] Cholesterol in LDL [Mass/Vol] 52 mg/dL Normal <130 [facility] Comment on above: Result Comment: LDL <100 mg/dL - Desirable LDL >160 mg/dL - High Risk Performed By: #### Ben ALVARADO, 6-4, 1-8, 2-9, 2284-8, 18161-2, FEPR, 28804-0, LIVR, 53785-4, RENAL, 3084-1 #### [facility] ([id number]) [address] [place] [address] Cholesterol in VLDL [Mass/Vol] 25 mg/dL Normal 0-30 [facility] Comment on above: Performed By: #### Ben ALVARADO, 6-4, 1-8, 2-9, 2284-8, 46789- 6, FEPR, 43867-7, LIVR, 44074-5, RENAL, 3084-1 #### [facility] ([id number]) [address] [place] [address] CHOLESTEROL:HDL 2.8 Normal 1.0-5.0 [facility] Comment on above: Performed By: #### Ben ALVARADO, 6-4, 1-8, 2-9, 2284-8, 73865- 6, FEPR, 86101-7, LIVR, 38366-0, RENAL, 3084-1 #### [facility] ([id number]) [address] [place] [address] Triglyceride [Mass/Vol] 125 mg/dL Normal 27-150 [facility] Comment on above: Performed By: #### C BC, 6-4, 2730-8, 2131-9, 2283-8, 41927- 6, FEPR, 01671-9, LIVR, 35747-9, RENAL, 3084-1 #### [facility] ([id number]) [address] [address] [place] [address] MAGNESIUMon 10-20-2024 Magnesium [Mass/Vol] 2.0 mg/dL Normal 1.8-2.6 [facility] Comment on above: Performed By: #### U A #### [facility] ([id number]) [address] [address] [place] [address] PROTEIN CREAT RATIOon 2024 RANDOM URINE PROTEIN 170 mg/L High <120 [facility] Comment on above: Performed By: #### U A #### [facility] ([id number]) [address] [address] [place] [address] U/PRO/SUPERVISOR HARVESTING RATIO CALC 0.09 Normal <0.2 [facility] Comment on above: Result Comment: Neph rotic Syndrome is associated with ratios >3.5 Performed By: #### U A #### [facility] ([id number]) [address] [address] [place] [address] URINE CREATININE,RDM 199.09 mg/dL Normal [facility] Comment on above: Performed By: #### U A #### [facility] ([id number]) [address] [address] [place] [address] Parathyrin.intact [Mass/Vol] on 10-20-2024 PTH INTACT 48 pg/mL Normal 12-88 [facility] Comment on above: Performed By: #### C BC, 6-4, 1-8, 9, 2283-8, 37294- 6, FEPR, 58588-5, LIVR, 78956-7, RENAL, 3084-1 #### [facility] ([id number]) [address] [address] [place] [address] RENAL PANELon 10-20-2024 Anion gap [Moles/Vol] 13 mmol/L Normal 5-15 [facility] Comment on above: Performed By: #### U A #### [facility] ([id number]) [address] [address] [place] [address] Calcium [Mass/Vol] 9.2 mg/dL Normal 8.5-10.5 [facility] Comment on above: Performed By: #### U A #### [facility] ([id number]) [address] [place] [address] Chloride [Moles/Vol] 107 mmol/L Normal 98-109 [facility] Comment on above: Performed By: #### U A #### [facility] ([id number]) [address] [address] CO2 [Moles/Vol] 21 mmol/L Low 22-32 [facility] Comment on above: Performed By: #### U A #### [facility] ([id number]) [address] [place] [address] Creatinine [Mass/Vol] 2.23 mg/dL High 0.60-1.30 [facility] Comment on above: Result Comment: METH OD TRACEABLE TO IDMS STANDARD Performed By: #### U A #### [facility] ([id number]) [address] [address] [place] [address] GFR/1.73 sq M.predicted among non-blacks MDRD (S/P/Bld) [Vol rate/Area] 31 mL/min/{1.73_m2} Low >59 [facility] Comment on above: Result Comment: Reported eGFR is based on the CKD-EPI 2020 equation that does not use a race coefficient. Performed By: #### U A #### [facility] ([id number]) [address] [place] [address] Glucose [Mass/Vol] 96 mg/dL Normal 65-99 [facility] Comment on above: Performed By: #### U A #### [facility] ([id number]) [address] [place] [address] Phosphate [Mass/Vol] 4.7 mg/dL Normal 2.4-4.9 [facility] Comment on above: Performed By: #### U A #### [facility] ([id number]) [address] [place] [address] Potassium [Moles/Vol] 4.4 mmol/L Normal 3.5-5.0 [facility] Comment on above: Performed By: #### U A #### [facility] ([id number]) [address] [place] [address] Sodium [Moles/Vol] 141 mmol/L Normal 134-146 [facility] Comment on above: Performed By: #### U A #### [facility] ([id number]) [address] [place] [address] Urea nitrogen [Mass/Vol] 28 mg/dL High 5-27 [facility] Comment on above: Performed By: #### U A #### [facility] ([id number]) [address] [address] [place] [address] URIC ACIDon 10-20-2024 Urate [Mass/Vol] 6.2 mg/dL Normal 2.6-7.2 [facility] Comment on above: Performed By: #### U A #### [facility] ([id number]) [address] [place] [address] URINALYSISon 10-20-2024 Bilirubin Ql (U) Negative Normal NEG [facility] Comment on above: Performed By: #### U A #### [facility] ([id number]) [address] [place] [address] BLOOD/HGB Negative Normal NEG [facility] Comment on above: Performed By: #### U A #### [facility] ([id number]) [address] [place] [address] Color (U) YELLOW Normal YELLOW [facility] Comment on above: Performed By: #### U A #### [facility] ([id number]) [address] [facility] [place] [address] Glucose Ql (U) Negative Normal NEG [facility] Comment on above: Performed By: #### U A #### [facility] ([id number]) [address] [place] [address] Hyaline casts LM Ql (Urine sed) 4 /lpf High 0-2 [facility] Comment on above: Performed By: #### U A #### [facility] ([id number]) [address] [place] [address] Ketones Ql (U) Negative Normal NEG [facility] Comment on above: Performed By: #### U A #### [facility] ([id number]) [address] [place] [address] Leukocyte esterase Test strip Ql (U) Negative Normal NEG [facility] Comment on above: Performed By: #### U A #### [facility] ([id number]) [address] [place] [address] MUCOUS PRESENT Abnormal NONE [facility] Comment on above: Performed By: #### U A #### [facility] ([id number]) [address] [place] [address] Nitrite Ql (U) Negative Normal NEG [facility] Comment on above: Performed By: #### U A #### [facility] ([id number]) [address] [place] [address] pH (U) 6.0 [pH] Normal 5.0-8.5 [facility] Comment on above: Performed By: #### U A #### [facility] ([id number]) [address] [address] [place] [address] Protein Ql (U) Trace Abnormal NEG [facility] Comment on above: Performed By: #### U A #### [facility] ([id number]) [address] [facility] [address] [place] [address] R.B.CELLS 0 /hpf Normal 0-5 [facility] Comment on above: Performed By: #### U A #### [facility] ([id number]) [address] [facility] [place] [address] Specific gravity (U) [Rel density] 1.023 Normal 1.003-1.035 [facility] Comment on above: Performed By: #### U A #### [facility] ([id number]) [address] [facility] [address] [place] [address] TURBIDITY CLEAR Normal CLEAR [facility] Comment on above: Performed By: #### U A #### [facility] ([id number]) [address] [address] [place] [address] Urobilinogen (U) [Mass/Vol] mg/dL Normal <1.1 [facility] Comment on above: Performed By: #### U A #### [facility] ([id number]) [address] [place] [address] W.B.CELLS 2 /hpf Normal 0-5 [facility] Comment on above: Performed By: #### U A #### [facility] ([id number]) [address] [facility], [address] [place] [address] VITAMIN B12on 10-20-2024 Cobalamin (Vitamin B12) [Mass/Vol] 462 pg/mL Normal 180-914 [facility] Comment on above: Performed By: #### C BC, 6-4, 1-8, 2132-9, 4-8, 33339- 6, FEPR, 71887-4, LIVR, 53780-0, RENAL, 3084-1 #### [facility] ([id number]) [address] [facility] [place] [address] Vitamin D+Metabolites [Mass/ Vol]on 10-20-2024 VITAMIN D 25 HYD TOT 72.1 ng/mL Normal 30-100 [facility] Comment on above: Result Comment: Vitamin D status 25 [place] Vitamin D Deficiency <20 ng/mL Insufficiency 20-29 ng/mL Sufficiency 30-100 ng/mL Toxicity >100 ng/mL NOTE: A pediatric reference range has not been established by the field reporter of this kit. The [place] [employer] recommends a Vitamin D level of = or >20ng/mL in infants and children. Performed By: #### C BC, 6-4, 1-8, 2131-9, 2283-8, 52749-7, FEPR, 97459-3, LIVR, 12635-0, RENAL, 3084-1 #### [facility] ([id number]) [address] [facility], [address] [place] [address] Office Visiton 10-13-2024 Follow-up visit [id number] JoseKel 1955 M Date Provider Department Center 10/13/2024 Katie-SARAH [facility] Family History Problem Relation Age of Onset Diabetes Mother Family Status - Relation Status Age at Mother Level of Service:22846 UT OFFICE/OUTPATIENT ESTABLISHED MOD MDM 30 MIN Normal [facility] CNOVon 10-12-2024 CNOV Office Visit (NEIND4 ) SAMIR CASTILLO ([id number]) 1955 M Date Time Provider Department 10/12/24 11:30 AM EBONY TRENT NEIND4 During your visit today, we recorded the following information about you: Pulse Blood pressure Weight Height 58/minute 136/61 77.1 kg 1.651 m Sandra Jay MA 10/12/2024 2:47 PM Signed 10/12/2024 PR[facility] Physical Health Summary [...] Ebony Trent DO 10/12/2024 2:47 PM Signed [facility] General Neurology Follow up/ Established patient visit Individuals who were included in, or assisted with the encounter were: Samir Castillo Ebony Black DO Chief Complaint/Issues: Samir Castillo is a 69 year old male seen in the [facility] for General Neurology for: Memory loss Most [...] a coffee (more content not included)... Normal [facility] CNOVon 09-08-2024 CNOV Office Visit (NPTU10 ) SAMIR CASTILLO ([id number]) 1955 M Date Time Provider Department 09/08/24 8:00 AM MISTY POLO NPTU10 During your visit today, we recorded the following information about you: Misty Polo, PhD 09/10/2024 4:35 PM Signed [facility] Department of Neurology Section of Neuropsychology Neuropsychological Evaluation Report CONFIDENTIAL Patient: Samir Castillo Date of : 1955 Referred by: Ebony Black MD (Neurology) Education: 10 Handedness: R Language(s): Citizen Of [place] Date of Evaluation: 09/08/2024 Mr. Castillo is [...] no Problems with mother's /delivery: no Early CHEESE WRAPPER infection, high fever, significant childhood illness: no SCHOOL HISTORY: Years of education completed: 10; left school early because he did not like it. 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 One day will feel worried and next day will feel okay. Has been this way for a long time. Mental health treatment: He endorsed lo (more content not included)... Normal [facility] Lipid 1996 panelon 4 Cholesterol [Mass/Vol] 142 mg/dL Low 150 - 200 mg/dL [facility] Cholesterol in HDL [Mass/Vol] 43 mg/dL 39 - PINF mg/dL [facility] Comment on above: HDL <40 mg/dL - High Risk HDL > or = 40mg/dL- Desirable HDL >60 mg/dL - Negative Risk Cholesterol in HDL/Total Cholesterol [Mass ratio] 3.3 {ratio} 1.0 - 5.0 [facility] Comment on above: PERFORMED AT [facility] [address],[place] [address] Cholesterol in LDL [Mass/Vol] 75 mg/dL NINF - 130 mg/dL [facility] Comment on above: LDL <100 mg/dL - Desirable LDL >160 mg/dL - High Risk Cholesterol in VLDL [Mass/Vol] 24 mg/dL 0 - 30 mg/dL [facility] Interpretation and review of laboratory results Abnormal [facility] Triglyceride [Mass/Vol] 118 mg/dL 27 - 150 mg/dL [facility] Cholesterol [Mass/Vol] 142 mg/dL Low 150-200 [facility] Comment on above: Performed By: #### 2 4331-1 #### [facility] ([id number]) [address] [place] [address] Cholesterol in HDL [Mass/Vol] 43 mg/dL Normal >39 [facility] Comment on above: Result Comment: HDL <40 mg/dL - High Risk HDL > or = 40mg/dL- Desirable HDL >60 mg/dL - Negative Risk Performed By: #### 2 4331-1 #### [facility] ([id number]) [address] [place] [address] Cholesterol in LDL [Mass/Vol] 75 mg/dL Normal <130 [facility] Comment on above: Result Comment: LDL <100 mg/dL - Desirable LDL >160 mg/dL - High Risk Performed By: #### 2 4331-1 #### [facility] ([id number]) [address] [place] [address] Cholesterol in VLDL [Mass/Vol] 24 mg/dL Normal 0-30 [facility] Comment on above: Performed By: #### 2 4331-1 #### [facility] ([id number]) [address] [place] [address] CHOLESTEROL:HDL 3.3 Normal 1.0-5.0 [facility] Comment on above: Performed By: #### 2 4331-1 #### [facility] ([id number]) [address] [place] [address] Triglyceride [Mass/Vol] 118 mg/dL Normal 27-150 [facility] Comment on above: Performed By: #### 2 4331-1 #### [facility] ([id number]) [address] [place] [address] CT BRAIN WO IVCONon 05-12-[address] [...] NO CT EVIDENCE OF ACUTE INTRACRANIAL PROCESS. Product Development Chemist: TERRENCE Transcribe Date/Time: May 12 2024 3:59P Dictated by : FIDEL DAVIDSON MD This examination was interpreted and the report reviewed and electronically signed by: FIDEL DAVIDSON MD on May 12 2024 4:07PM EST [id number] Normal [facility] CT Head WO contraston 2023 IMPRESSION: NO CT EVIDENCE OF ACUTE INTRACRANIAL PROCESS. Product Development Chemist: TERRENCE Transcribe Date/Time: May 12 2024 3:59P Dictated by : FIDEL DAVIDSON MD This examination was interpreted and the report reviewed and electronically signed by: FIDEL DAVIDSON MD on May 12 2024 4:07PM EST [facility] * * *Final Report* * * [...] are unremarkable. Localizer images: No additional findings. [facility] Provider, [facility] [place] [facility] [place] - 05/12/2024 * * *Final Report* * [...] NO CT EVIDENCE OF ACUTE INTRACRANIAL PROCESS. Product Development Chemist: PSCB Transcribe Date/Time: May 12 2024 3:59P Dictated by : FIDEL DAVIDSON MD This examination was interpreted and the report reviewed and electronically signed by: FIDEL DAVIDSON MD on May 12 2024 4:07PM EST [facility] Radiology Study observation (narrative) [facility] CT Head WO contrastOrdered B y: [facility] Provider on 05-12-2024 [facility] CNOVon 05-04-2024 CNOV Office Visit (NEIND4 ) SAMIR CASTILLO ([id number]) 1955 M Date Time Provider Department 05/04/24 9:30 AM EBONY TRENT NEIND4 During your visit today, we recorded the following information about you: Pulse Blood pressure Weight Height 57/minute 138/63 80.5 kg 1.676 m Ebony Trent DO 05/04/2024 10:17 PM Signed [facility] for General Neurology Follow up/ Established patient visit Individuals who were included in, or assisted with the encounter were: Samir Castillo Ebony Black DO Chief Complaint/Issues: Samir Castillo is a 69 year old male seen in the [facility] for General Neurology for: Memory loss Most [...] over medications. 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 isos (more content not included)... Normal [facility] CT abdomen pelvis wo conon 0 04-09-2023 CT abdomen pelvis wo con [facility] Main [place] [address] [place] [address] Scan Report Signed Patient: Kel Castillo Jr MR#: [id number] : 1955 Acct:[id number] Age/Sex: 67 / M ADM Date: 04/09/23 Loc: ER Room: Type: [facility] ER Attending Dr: Copies to: Lucy [...] Damien Negrete M.D.04/09/2023 2:28 PM Dictation Location: [place] [address] Transcribed By: CANDIE 04/09/23 1428 Dictated By: Damien Negrete DO 04/09/23 1422 Signed By: 04/09/23 1428 Normal [facility] Complete Blood Count Auto Di ffon 04-09-2023 Basophils (Bld) [#/Vol] 0.1 10*3/uL Normal 0.0-0.2 [facility] Comment on above: Result Comment: PERF ORMED BY: [place] [address] PATHOLOGIST FLIGHT DECK OFFICER TROY SIGALA M.D. Performed By: #### C BC #### [address] Basophils/100 WBC (Bld) 1.0 % Normal . [facility] Comment on above: Performed By: #### C BC #### [address] Eosinophils (Bld) [#/Vol] 0.2 10*3/uL Normal 0.0-0.45 [facility] Comment on above: Performed By: #### C BC #### [address] Eosinophils/100 WBC (Bld) 2.8 % Normal . [facility] Comment on above: Performed By: #### C BC #### [address] Erythrocyte distribution width (RBC) [Ratio] 14.5 % Normal 12.0-14.8 [facility] Comment on above: Performed By: #### C BC #### [address] Hematocrit (Bld) [Volume fraction] 39.2 % Normal 38.8-50.0 [facility] Comment on above: Performed By: #### C BC #### [address] Hemoglobin (Bld) [Mass/Vol] 13.0 g/dL Normal 13.0-17.0 [facility] Comment on above: Performed By: #### C BC #### [address] Lymphocytes (Bld) [#/Vol] 1.1 10*3/uL Normal 1.00-4.8 [facility] Comment on above: Performed By: #### C BC #### [address] Lymphocytes/100 WBC (Bld) 14.1 % Normal . [facility] Comment on above: Performed By: #### C BC #### [address] MCH (RBC) [Entitic mass] 30.4 pg Normal 27.5-35.2 [facility] Comment on above: Performed By: #### C BC #### [address] MCV (RBC) [Entitic vol] 91.5 fL Normal 83.5-101 [facility] Comment on above: Performed By: #### C BC #### [address] Mean Corpuscular HGB Conc 33.2 g/dL Normal 32.5-35.6 [facility] Comment on above: Performed By: #### C BC #### [address] Monocytes (Bld) [#/Vol] 0.5 10*3/uL Normal 0.0-0.8 [facility] Comment on above: Performed By: #### C BC #### [address] Monocytes/100 WBC (Bld) 16.97 % Normal 0.00-20.00 [facility] Comment on above: Performed By: #### C BC #### [address] Monocytes/100 WBC (Bld) 6.6 % Normal . [facility] Comment on above: Performed By: #### C BC #### [address] Neutrophils (Bld) [#/Vol] 5.9 10*3/uL Normal 1.8-7.7 [facility] Comment on above: Performed By: #### C BC #### [facility] [address] Neutrophils/100 WBC (Bld) 75.5 % Normal . [facility] Comment on above: Performed By: #### C BC #### [facility] [address] NRBC% 0.0 /100{WBC} Normal 0-0.5 [facility] Comment on above: Performed By: #### C BC #### [facility] [address] Platelet mean volume (Bld) [Entitic vol] 7.5 fL Normal 6.6-10.1 [facility] Comment on above: Performed By: #### C BC #### [address] Platelets (Bld) [#/Vol] 180 10*3/uL Normal 150-450 [facility] Comment on above: Performed By: #### C BC #### [facility] [address] RBC (Bld) [#/Vol] 4.29 10*6/uL Normal 3.90-5.60 [facility] Comment on above: Performed By: #### C BC #### [address] WBC (Bld) [#/Vol] 7.8 10*3/uL Normal 4.1-10.[address] [facility] Comment on above: Performed By: #### C BC #### [facility] [address] Comprehensive Metabolic Pane noe 04-09-2023 Albumin [Mass/Vol] 4.3 g/dL Normal 3.5-5.[address] [facility] Comment on above: Performed By: #### P TT, LIPASE, PT, CMP #### [address] Albumin/Globulin [Mass ratio] 1.2 {ratio} Normal [facility] Comment on above: Performed By: #### P TT, LIPASE, PT, CMP #### [facility] [address] ALP [Catalytic activity/Vol] 105 U/L High 34-104 [facility] Comment on above: Performed By: #### P TT, LIPASE, PT, CMP #### [facility] [address] ALT [Catalytic activity/Vol] 61 U/L High 7-52 [facility] Comment on above: Performed By: #### P TT, LIPASE, PT, CMP #### [address] Anion gap [Moles/Vol] 12.5 mmol/L Normal 6.0-15.0 [facility] Comment on above: Performed By: #### P TT, LIPASE, PT, CMP #### [address] AST [Catalytic activity/Vol] 62 U/L High 13-39 [facility] Comment on above: Performed By: #### P TT, LIPASE, PT, CMP #### [address] Bilirubin [Mass/Vol] 0.8 mg/dL Normal 0.3-1.0 [facility] Comment on above: Performed By: #### P TT, LIPASE, PT, CMP #### [facility] [address] [place] [address] Calcium [Mass/Vol] 9.0 mg/dL Normal 8.6-10.[address] [facility] Comment on above: Performed By: #### P TT, LIPASE, PT, CMP #### [place] [address] [place] Chloride [Moles/Vol] 107 mmol/L Normal 98-107 [facility] Comment on above: Performed By: #### P TT, LIPASE, PT, CMP #### [address] CO2 [Moles/Vol] 25.1 mmol/L Normal 21.0-31.0 [facility] Comment on above: Performed By: #### P TT, LIPASE, PT, CMP #### [address] Creatinine [Mass/Vol] 1.76 mg/dL High 0.70-1.30 [facility] Comment on above: Performed By: #### P TT, LIPASE, PT, CMP #### [place] [address] [place] Creatinine Clr Calc Pharmacy 40.17 [facility] Comment on above: Performed By: #### P TT, LIPASE, PT, CMP #### [place] [address] [place] GFR/1.73 sq M.predicted MDRD (S/P/Bld) [Vol rate/Area] 41.342 mL/min/{1.73_m2} [facility] Comment on above: Performed By: #### P TT, LIPASE, PT, CMP #### [address] Globulin (S) [Mass/Vol] 3.7 g/dL [facility] Comment on above: Performed By: #### P TT, LIPASE, PT, CMP #### [address] Glucose [Mass/Vol] 89 mg/dL Normal 70-[address] [facility] Comment on above: Result Comment: [place] Glucose Reference Range is dependent on time and content of last meal. Glucose of more than 200 mg/dL in a nonstressed, ambulatory subject supports the diagnosis of Diabetes Mellitus. ADA recommended reference range Performed By: #### P TT, LIPASE, PT, CMP #### [place] [address] [place] Potassium [Moles/Vol] 4.6 mmol/L Normal 3.5-5.1 [facility] Comment on above: Performed By: #### P TT, LIPASE, PT, CMP #### [address] Protein [Mass/Vol] 8.0 g/dL Normal 6.4-8.[address] [facility] Comment on above: Performed By: #### P TT, LIPASE, PT, CMP #### [facility] [address] [place] [address] Sodium [Moles/Vol] 140 mmol/L Normal 136-[address] [facility] Comment on above: Performed By: #### P TT, LIPASE, PT, CMP #### [facility] [address] [place] [address] Urea nitrogen [Mass/Vol] 25 mg/dL Normal 7-25 [facility] Comment on above: Performed By: #### P TT, LIPASE, PT, CMP #### [place] [address] [place] Dipstick and Microscopicon 0 04-09-2023 Appearance (U) Cloudy Critically abnormal Clear [facility] Comment on above: Order Comment: Name Collection Type:: Clean-Voided Midstream Performed By: #### A DDONUAPLUS #### [address] Bacteria,Urine None Seen Normal None Seen [facility] Comment on above: Order Comment: Name Collection Type:: Clean-Voided Midstream Performed By: #### A DDONUAPLUS #### [address] Bilirubin,Urine Negative Normal Negative [facility] Comment on above: Order Comment: Name Collection Type:: Clean-Voided Midstream Performed By: #### A DDONUAPLUS #### [place] [address] [place] Color (U) Yellow Normal Yellow [facility] Comment on above: Order Comment: Name Collection Type:: Clean-Voided Midstream Performed By: #### A DDONUAPLUS #### [place] [address] [place] Glucose Ql (U) Normal Normal Normal [facility] Comment on above: Order Comment: Name Collection Type:: Clean-Voided Midstream Performed By: #### A DDONUAPLUS #### [address] Hyaline Casts,Urine None Seen Normal 0-8 [facility] Comment on above: Order Comment: Name Collection Type:: Clean-Voided Midstream Result Comment: PERF ORMED BY: [place] [address] PATHOLOGIST [employer]ICER TROY SIGALA M.D. Performed By: #### A DDONUAPLUS #### [address] Ketones Ql (U) Negative Normal Negative [facility] Comment on above: Order Comment: Name Collection Type:: Clean-Voided Midstream Performed By: #### A DDONUAPLUS #### [address] Leukocyte esterase Test strip Ql (U) Negative Normal Negative [facility] Comment on above: Order Comment: Name Collection Type:: Clean-Voided Midstream Performed By: #### A DDONUAPLUS #### [place] [address] [place] Nitrite,Urine Negative Normal Negative [facility] Comment on above: Order Comment: Name Collection Type:: Clean-Voided Midstream Performed By: #### A DDONUAPLUS #### [address] Occult Blood,Urine Negative Normal Negative [facility] Comment on above: Order Comment: Name Collection Type:: Clean-Voided Midstream Result Comment: PERF ORMED BY: [place] [address] PATHOLOGIST [employer] OFFICER TROY SIGALA M.D. Performed By: #### A DDONUAPLUS #### [place] [address] [place] pH (U) 5.5 [pH] Normal 5.0-9.0 [facility] Comment on above: Order Comment: Name Collection Type:: Clean-Voided Midstream Performed By: #### A DDONUAPLUS #### [address] Protein,Urine Negative Normal Negative [facility] Comment on above: Order Comment: Name Collection Type:: Clean-Voided Midstream Performed By: #### A DDONUAPLUS #### [address] RBC LM.HPF (Urine sed) [#/Area] 0 /[HPF] Normal 0-4 [facility] Comment on above: Order Comment: Name Collection Type:: Clean-Voided Midstream Performed By: #### A DDONUAPLUS #### [address] Specificy [place],Urine 1.014 Normal 1.001-1.030 [facility] Comment on above: Order Comment: Name Collection Type:: Clean-Voided Midstream Performed By: #### A DDONUAPLUS #### [address] Squamous Epithelial Cell,Urine None Seen Normal 0-2 [facility] Comment on above: Order Comment: Name Collection Type:: Clean-Voided Midstream Performed By: #### A DDONUAPLUS #### [address] Urobilinogen,Urine Normal Normal Normal [facility] Comment on above: Order Comment: Name Collection Type:: Clean-Voided Midstream Performed By: #### A DDONUAPLUS #### [facility] [address] [place] [address] WBC LM.HPF (Urine sed) [#/Area] 0 /[HPF] Normal 0-4 [facility] Comment on above: Order Comment: Name Collection Type:: Clean-Voided Midstream Performed By: #### A DDONUAPLUS #### [address] Lipaseon 04-09-2023 Lipase [Catalytic activity/Vol] 92.0 U/L High 11.0-82.0 [facility] Comment on above: Result Comment: PERF ORMED BY: [place] [address] PATHOLOGIST [employer] OFFICER TROY SIGALA M.D. Performed By: #### P TT, LIPASE, PT, CMP #### [address] Partial Thromboplastin Timeo n 04-09-2023 aPTT Coag (Bld) [Time] 30.9 s Normal 25.1-36.5 [facility] Comment on above: Result Comment: PERF ORMED BY: [place] [address] PATHOLOGIST [employer] OFFICER TROY SIGALA M.D. Performed By: #### P TT, LIPASE, PT, CMP #### [address] Prothrombin Time INRon 04-09 INR Coag (PPP) [Relative time] 1.0 {INR} Normal [facility] Comment on above: Result Comment: INR [...] #### P TT, LIPASE, PT, CMP #### [address] PT Coag (PPP) [Time] 11.9 s Normal 9.0-12.9 [facility] Comment on above: Performed By: #### P TT, LIPASE, PT, CMP #### [address] CBC AUTO DIFFon 07-27-2022 BASO # 0.1 103/ul Normal 0.0-0.[address] [facility] Comment on above: Performed By: #### C BC #### [facility] [address] [address] [address] Hattie Newsome Basophils/100 WBC (Bld) 0.8 % Normal 0.2-2.[address] [facility] Comment on above: Performed By: #### C BC #### [facility] [address] [place] [address] Dr. Hattie Newsome EO # 0.3 103/ul Normal 0.0-0.[address] [facility] Comment on above: Performed By: #### C BC #### [facility] [address] [place] [address] Dr. Hattie Newsome Eosinophils/100 WBC (Bld) 3.2 % Normal 0.9-7.[address] [facility] Comment on above: Performed By: #### C BC #### [facility] [address] [place] [address] Dr. Hattie Newsome Erythrocyte distribution width (RBC) [Ratio] 14.3 % Normal 11.0-15.[address] [facility] Comment on above: Performed By: #### C BC #### [facility] [address] [place] [address] Dr. Hattie Newsome Hematocrit (Bld) [Volume fraction] 39.7 % Critically low 42.0-54.[address] [facility] Comment on above: Performed By: #### C BC #### [facility] [address] [place] [address] Dr. Hattie Newsome Hemoglobin (Bld) [Mass/Vol] 13.0 g/dL Critically low 14.0-18.[address] [facility] Comment on above: Performed By: #### C BC #### [facility] [address] [place] [address] Dr. Hattie Newsome IG # 0.06 10e3/ul Critically high 0.00-0.03 [facility] Comment on above: Performed By: #### C BC #### [facility] [address] [place] [address] Dr. Hattie Newsome IG % 0.8 % Critically high 0.0-0.5 [facility] Comment on above: Performed By: #### C BC #### [facility] [address] [place] [address] Dr. Hattie Newsome LYMPH # 1.3 103/ul Normal 1.2-3.8 [facility] Comment on above: Performed By: #### C BC #### [facility] [address] [address] [address] Hattie Newsome Lymphocytes/100 WBC (Bld) 16.8 % Critically low 20.5-60.[address] [facility] Comment on above: Performed By: #### C BC #### [facility] [address] [address] [address] Hattie Newsome MANUAL DIFF REQ NO Normal [facility] Comment on above: Performed By: #### C BC #### [facility] [address] [place] [address] Dr. Hattie Newsome MCH (RBC) [Entitic mass] 30.5 pg Normal 25.9-34.[address] [facility] Comment on above: Performed By: #### C BC #### [facility] [address] [place] [address] Dr. Hattie Newsome MCHC (RBC) [Mass/Vol] 32.7 g/dL Normal 29.9-35.2 [facility] Comment on above: Performed By: #### C BC #### [facility] [address] [place] [address] Dr. Hattie Newsome MCV (RBC) [Entitic vol] 93.2 fL Normal 80.0-94.[address] [facility] Comment on above: Performed By: #### C BC #### [facility] [address] [place] [address] Dr. Hattie Newsome MONO # 0.5 103/ul Normal 0.3-0.8 [facility] Comment on above: Performed By: #### C BC #### [facility] [address] [place] [address] Dr. Hattie Newsome Monocytes/100 WBC (Bld) 7.0 % Normal 1.7-12.0 [facility] Comment on above: Performed By: #### C BC #### [facility] [address] [place] [address] Dr. Hattie Newsome NEUT # 5.5 103/ul Normal 1.4-6.5 [facility] Comment on above: Performed By: #### C BC #### [facility] [address] [address] [address] Hattie Newsome Neutrophils/100 WBC (Bld) 71.4 % Normal 43.0-75.[address] [facility] Comment on above: Performed By: #### C BC #### [facility] [address] [address] [address] Hattie Newsome Platelet mean volume (Bld) [Entitic vol] 9.4 fL Critically low 9.5-13.[address] [facility] Comment on above: Performed By: #### C BC #### [facility] [address] [address] [address] Hattie Newsome PLT 169 103/ul Normal 150-[address] [facility] Comment on above: Performed By: #### C BC #### [facility] [address] [place] [address] Dr. Hattie Newsome RBC 4.26 106/ul Critically low 4.70-6.10 [facility] Comment on above: Performed By: #### C BC #### [facility] [address] [place] [address] Dr. Hattie Newsome WBC 7.7 103/ul Normal 4.0-11.[address] [facility] Comment on above: Performed By: #### C BC #### [facility] [address] [place] [address] Dr. Hattie Newsome LIPID PROFILEon 07-27-2022 CHOL-HDL RATIO NORM SEE BELOW Normal [facility] Comment on above: Result Comment: 3.3 - 4.4 LOW RISK 4.4 - 7.1 AVERAGE RISK 7.1 - 11.0 MODERATE RISK >11.0 HIGH RISK Performed By: #### L IPID #### [facility] [address] [address] [address] Hattie Newsome Cholesterol [Mass/Vol] 131 mg/dL Normal <=200 [facility] Comment on above: Performed By: #### L IPID #### [facility] [address] [place] [address] Dr. Hattie Newsome Cholesterol in HDL [Mass/Vol] 40 mg/dL Normal 40-[address] [facility] Comment on above: Performed By: #### L IPID #### [facility] [address] [address] [address] Hattie Newsome Cholesterol in LDL [Mass/Vol] 64.6 mg/dL Normal [facility] Comment on above: Performed By: #### L IPID #### [facility] [address] [address] [address] Hattie Newsome Cholesterol.total/C holesterol in HDL [Mass ratio] 3.3 {ratio} Normal [facility] Comment on above: Performed By: #### L IPID #### [facility] [address] [address] [address] Hattie Newsome HDL NORMAL > or = 60 mg/dl - LO W CARDIOVASCULAR RISK <40 mg/dl - HIGH CARDIOVASCULAR RISK Normal [facility] Comment on above: Performed By: #### L IPID #### [facility] [address] [place] [address] Dr. Hattie Newsome LDL CALC NORMAL SEE BELOW Normal [facility] Comment on above: Result Comment: <100 mg/dl OPTIMAL 100 - 129 mg/dl NEAR OR ABOVE OPTIMAL 130 - 159 mg/dl BORDERLINE HIGH 160 - 189 mg/dl HIGH >190 mg/dl VERY HIGH Performed By: #### L IPID #### [facility] [address] [place] [address] Dr. Hattie Newsome Triglyceride [Mass/Vol] 132 mg/dL Normal <=[address] [facility] Comment on above: Performed By: #### L IPID #### [facility] [address] [address] [address] Hattie Newsome VLDL CALC 26.4 mg/dL Normal [facility] Comment on above: Performed By: #### L IPID #### [facility] [address] [place] [address] Dr. Hattie Newsome PARATHYROID HORMONE- RELATED PEPTIDEon 07-15-2022 PTHrP (PTH-Related Peptide) <2.0 Normal [facility] Comment on above: Result Comment: This test was developed and its performance characteristics determined by [employer]. It has not been cleared or approved [...] laboratory. Performed By: #### P THP #### [facility] [address] [place] [address] Dr. Hattie Newsome CBC AUTO DIFFon 07-07-2022 BASO # 0.1 103/ul Normal 0.0-0.[address] [facility] Comment on above: Performed By: #### U BLANCA, CMP, MG #### [facility] [address] [place] [address] Dr. Hattie Newsome Basophils/100 WBC (Bld) 0.9 % Normal 0.2-2.[address] [facility] Comment on above: Performed By: #### U BLANCA, CMP, MG #### [facility] [address] [place] [address] Dr. Hattie Newsome EO # 0.2 103/ul Normal 0.0-0.[address] [facility] Comment on above: Performed By: #### U BLANCA, CMP, MG #### [facility] [address] [place] [address] Dr. Hattie Newsome Eosinophils/100 WBC (Bld) 3.4 % Normal 0.9-7.[address] [facility] Comment on above: Performed By: #### U BLANCA, CMP, MG #### [facility] [address] [place] [address] Dr. Hattie Newsome Erythrocyte distribution width (RBC) [Ratio] 14.5 % Normal 11.0-15.[address] [facility] Comment on above: Performed By: #### U BLANCA, CMP, MG #### [facility] [address] [place] [address] Dr. Hattie Newsome Hematocrit (Bld) [Volume fraction] 40.1 % Critically low 42.0-54.[address] [facility] Comment on above: Performed By: #### U BLANCA, CMP, MG #### [facility] [address] [place] [address] Dr. Hattie Newsome Hemoglobin (Bld) [Mass/Vol] 13.6 g/dL Critically low 14.0-18.[address] [facility] Comment on above: Performed By: #### U BLANCA, CMP, MG #### [facility] [address] [place] [address] Dr. Hattie Newsome IG # 0.04 10e3/ul Critically high 0.00-0.03 [facility] Comment on above: Performed By: #### U BLANCA, CMP, MG #### [facility] [address] [place] [address] Dr. Hattie Newsome IG % 0.6 % Critically high 0.0-0.5 [facility] Comment on above: Performed By: #### U BLANCA, CMP, MG #### [facility] [address] [place] [address] Dr. Hattie Newsome LYMPH # 0.9 103/ul Critically low 1.2-3.8 [facility] Comment on above: Performed By: #### U BLANCA, CMP, MG #### [facility] [address] [place] [address] Dr. Hattie Newsome Lymphocytes/100 WBC (Bld) 13.1 % Critically low 20.5-60.[address] [facility] Comment on above: Performed By: #### U BLANCA, CMP, MG #### [facility] [address] [place] [address] Dr. Hattie Newsome MANUAL DIFF REQ NO Normal [facility] Comment on above: Performed By: #### U BLANCA, CMP, MG #### [facility] [address] [place] [address] Dr. Hattie Newsome MCH (RBC) [Entitic mass] 30.9 pg Normal 25.9-34.0 [facility] Comment on above: Performed By: #### U BLANCA, CMP, MG #### [facility] [address] [place] [address] Dr. Hattie Newsome MCHC (RBC) [Mass/Vol] 33.9 g/dL Normal 29.9-35.2 [facility] Comment on above: Performed By: #### U BLNACA, CMP, MG #### [facility] [address] [address] [address] Hattie Newsome MCV (RBC) [Entitic vol] 91.1 fL Normal 80.0-94.[address] [facility] Comment on above: Performed By: #### U BLANCA, CMP, MG #### [facility] [address] [place] [address] Dr. Hattie Newsome MONO # 0.3 103/ul Normal 0.3-0.8 [facility] Comment on above: Performed By: #### U BLANCA, CMP, MG #### [facility] [address] [place] [address] Dr. Hattie Newsome Monocytes/100 WBC (Bld) 5.1 % Normal 1.7-12.[address] [facility] Comment on above: Performed By: #### U BLANCA, CMP, MG #### [facility] [address] [place] [address] Dr. Hattie Newsome NEUT # 5.0 103/ul Normal 1.4-6.[address] [facility] Comment on above: Performed By: #### U BLANCA, CMP, MG #### [facility] [address] [place] [address] Dr. Hattie Newsome Neutrophils/100 WBC (Bld) 76.9 % Critically high 43.0-75.0 [facility] Comment on above: Performed By: #### U BLANCA, CMP, MG #### [facility] [address] [place] [address] Dr. Hattie Newsome Platelet mean volume (Bld) [Entitic vol] 9.0 fL Critically low 9.5-13.[address] [facility] Comment on above: Performed By: #### U BLANCA, CMP, MG #### [facility] [address] [place] [address] Dr. Hattie Newsome PLT 160 103/ul Normal 150-450 [facility] Comment on above: Performed By: #### U BLANCA, CMP, MG #### [facility] [address] [place] [address] Dr. Hattie Newsome RBC 4.40 106/ul Critically low 4.70-6.10 [facility] Comment on above: Performed By: #### U BLANCA, CMP, MG #### [facility] [address] [address] [address] Hattie Newsome WBC 6.5 103/ul Normal 4.0-11.[address] [facility] Comment on above: Performed By: #### U BLANCA, CMP, MG #### [facility] [address] [address] [address] Hattie Newsome MAGNESIUMon 07-07-2022 Magnesium [Mass/Vol] 1.8 mg/dL Normal 1.8-2.[address] [facility] Comment on above: Performed By: #### U BLANCA, CMP, MG #### [facility] [address] [place] [address] Dr. Hattie Newsome PROF 14(COMP METB)on 022 Albumin [Mass/Vol] 3.9 g/dL Normal 3.4-5.0 [facility] Comment on above: Performed By: #### U BLANCA, CMP, MG #### [facility] [address] [place] [address] Dr. Hattie Newsome Albumin/Globulin [Mass ratio] 1.0 {ratio} Normal [facility] Comment on above: Performed By: #### U BLANCA, CMP, MG #### [facility] [address] [place] [address] Dr. Hattie Newsome ALP [Catalytic activity/Vol] 136 U/L Critically high 46-[address] [facility] Comment on above: Performed By: #### U BLANCA, CMP, MG #### [facility] [address] [place] [address] Dr. Hattie Newsome ALT [Catalytic activity/Vol] 122 U/L Critically high 16-[address] [facility] Comment on above: Performed By: #### U BLANCA, CMP, MG #### [facility] [address] [place] [address] Dr. Hattie Newsome Anion gap [Moles/Vol] 12.4 mmol/L Normal [facility] Comment on above: Performed By: #### U BLANCA, CMP, MG #### [facility] [address] [address] [address] Hattie Newsome AST [Catalytic activity/Vol] 72 U/L Critically high 15-[address] [facility] Comment on above: Performed By: #### U BLANCA, CMP, MG #### [facility] [address] [address] [address] Hattie Newsome Bilirubin [Mass/Vol] 0.5 mg/dL Normal 0.2-1.[address] [facility] Comment on above: Performed By: #### U BLANCA, CMP, MG #### [facility] [address] [address] [address] Hattie Newsome Calcium [Mass/Vol] 9.1 mg/dL Normal 8.5-10.1 [facility] Comment on above: Performed By: #### U BLANCA, CMP, MG #### [facility] [address] [address] [address] Hattie Newsome Chloride [Moles/Vol] 106 mmol/L Normal 98-[address] [facility] Comment on above: Performed By: #### U BLANCA, CMP, MG #### [facility] [address] [address] [address] Hattie Newsome CO2 [Moles/Vol] 25.9 mmol/L Normal 21.0-32.0 [facility] Comment on above: Performed By: #### U BLANCA, CMP, MG #### [facility] [address] [address] [address] Hattie Newsome Creatinine [Mass/Vol] 1.54 mg/dL Critically high 0.70-1.[address] [facility] Comment on above: Performed By: #### U BLANCA, CMP, MG #### [facility] [address] [address] [address] Hattie Newsome EGFR-AF [place] 55 mL/min/1.73m2 Critically low >=60 [facility] Comment on above: Performed By: #### U BLANCA, CMP, MG #### [facility] [address] [address] [address] Hattie Newsome EGFR-NON AF [place] 45 mL/min/1.73m2 Critically low >=60 [facility] Comment on above: Performed By: #### U BLANCA, CMP, MG #### [facility] [address] [address] [address] Hattie [place] Globulin (S) [Mass/Vol] 4.0 g/dL Normal [facility] Comment on above: Performed By: #### U BLANCA, CMP, MG #### [facility] [address] [address] [address] Hattie [place] Glucose [Mass/Vol] 104 mg/dL Normal 74-106 [facility] Comment on above: Performed By: #### U BLANCA, CMP, MG #### [facility] [address] [place] [address] Dr. Hattie [place] Potassium [Moles/Vol] 4.3 mmol/L Normal 3.5-5.[address] [facility] Comment on above: Performed By: #### U BLANCA, CMP, MG #### [facility] [address] [place] [address] Dr. Hattie [place] Protein [Mass/Vol] 7.9 g/dL Normal 6.4-8.2 [facility] Comment on above: Performed By: #### U BLANCA, CMP, MG #### [facility] [address] [place] [address] Dr. Hattie [place] Sodium [Moles/Vol] 140 mmol/L Normal 136-145 [facility] Comment on above: Performed By: #### U BLANCA, CMP, MG #### [facility] [address] [place] [address] Dr. Hattie Newsome Urea nitrogen [Mass/Vol] 14.0 mg/dL Normal 7.0-18.[address] [facility] Comment on above: Performed By: #### U BLANCA, CMP, MG #### [facility] [address] [place] [address] Dr. Hattie Newsome Urea nitrogen/Creatinine [Mass ratio] 9.1 mg/mg Normal [facility] Comment on above: Performed By: #### U BLANCA, CMP, MG #### [facility] [address] [place] [address] Dr. Hattie Newsome UA RANDOMon 11-26-2022 Bilirubin Ql (U) Negative Normal NEGATIVE [facility] Comment on above: Performed By: #### U A #### [facility] [address] [place] [address] Dr. Hattie Newsome Clarity (U) CLEAR Normal CLEAR [facility] Comment on above: Performed By: #### U A #### [facility] [address] [place] [address] Dr. Hattie Newsome Color (U) YELLOW Normal YELLOW [facility] Comment on above: Performed By: #### U A #### [facility] [address] [place] [address] Dr. Hattie Newsome Glucose Ql (U) Negative Normal NEGATIVE [facility] Comment on above: Performed By: #### U A #### [facility] [address] [place] [address] Dr. Hattie Newsome Hemoglobin Ql (U) Negative Normal NEGATIVE [facility] Comment on above: Performed By: #### U A #### [facility] [address] [place] [address] Dr. Hattie Newsome Ketones Ql (U) Negative Normal NEGATIVE [facility] Comment on above: Performed By: #### U A #### [facility] [address] [place] [address] Dr. Hattie Newsome LEUKOCYTES Negative Normal NEGATIVE [facility] Comment on above: Performed By: #### U A #### [facility] [address] [place] [address] Dr. Hattie Newsome Nitrite Ql (U) Negative Normal NEGATIVE [facility] Comment on above: Performed By: #### U A #### [facility] [address] [place] [address] Dr. Hattie Newsome pH (U) 5.5 [pH] Normal 5-[address] [facility] Comment on above: Performed By: #### U A #### [facility] [address] [place] [address] Dr. Hattie Newsome SPEC GRAVITY >=1.030 Abnormal 1.005-<=1.025 [facility] Comment on above: Performed By: #### U A #### [facility] [address] [place] [address] Dr. Hattie Newsome UA PROTEIN Negative Normal NEGATIVE/ TRACE [facility] Comment on above: Performed By: #### U A #### [facility] [address] [place] [address] Dr. Hattie Newsome Urobilinogen Qn (U) 1.0 {Xavier'U}/dL Normal 0.2 - 1. [address] [facility] Comment on above: Performed By: #### U A #### [facility] [address] [place] [address] Dr. Hattie Newsome URIC ACID SERUMon 07-07-2022 Urate [Mass/Vol] 6.8 mg/dL Normal 3.5-7.2 [facility] Comment on above: Performed By: #### U BLANCA, CMP, MG #### [facility] [address] [place] [address] Dr. Hattie Newsome URINE T PROTEIN CREAT RATIOo n 07-07-2022 Protein (U) [Mass/Vol] 27.5 mg/dL Critically high <=12.[address] [facility] Comment on above: Performed By: #### U RTPCR #### [facility] [address] [place] [address] Dr. Hattie Newsome UR PROT CREAT RAT 0.15 Normal [facility] Comment on above: Performed By: #### U RTPCR #### [facility] [address] [place] [address] Dr. Hattie Newsome URINE CREAT 187.29 mg/dL Normal 20.00-300.00 [facility] Comment on above: Performed By: #### U RTPCR #### [facility] [address] [place] [address] Dr. Hattie Newsome VITAMIN D 25 OHon 07-07-2022 VIT D 25-OH 81.5 ng/mL Normal [facility] Comment on above: Performed By: #### V ITAD #### [facility] [address] [place] [address] Dr. Hattie Newsome VIT D RANGES SEE BELOW Normal [facility] Comment on above: Result Comment: <20 ng/mL Vit D deficient 20 - <30 ng/mL Vit D insufficient 30 - 100 ng/mL Vit D sufficient >100 ng/mL Potential Toxicity Performed By: #### V ITAD #### [facility] [address] [address] [address] Hattie Newsome ECHOCARDIO M/2D COMPLETEon 0 02-21-2022 ECHOCARDIO M/2D COMPLETE Patient: KEL CASTILLO Exam Date: 02/21/2022 : 1955 Gender:M Ordering : DR SARAH TOLLIVER M.D. Admission #: [id number] Family : Order #: [id number] CLICK HERE TO VIEW EXAM ECHOCARDIOGRAM REPORT [...] Yepez M.D. on 02/21/2022 at 16:31 Normal [facility] No Panel Informationon 02-08 [facility] BASIC METABOLIC PANELon - Calcium [Mass/Vol] 9.2 mg/dL Normal 8.6-10.3 [facility] Comment on above: Order Comment: No: D o not add to previous draw Performed By: #### 0 0071, 05943 #### [facility] [address] [place] [address], [place] Chloride [Moles/Vol] 108 mmol/L High 98-107 [facility] Comment on above: Order Comment: No: D o not add to previous draw Performed By: #### 0 0071, 22999 #### [facility] [address] [place] [address], [place] CO2 [Moles/Vol] 26 mmol/L Normal 21-31 [facility] Comment on above: Order Comment: No: D o not add to previous draw Performed By: #### 0 0071, 17232 #### [facility] [address] [place] [address], [place] Creatinine [Mass/Vol] 1.64 mg/dL High 0.70-1.30 [facility] Comment on above: Order Comment: No: D o not add to previous draw Performed By: #### 0 0071, 28144 #### [facility] [address] [place] [address], [place] GFR/1.73 sq M predicted among blacks MDRD (S/P/Bld) [Vol rate/Area] 51 ml/min/1.73sq m Abnormal >60 [facility] Comment on above: Order Comment: No: D o not add to previous draw Performed By: #### 0 0071, 03239 #### [facility] [address] [place] [address], [place] GFR/1.73 sq M predicted among non-blacks MDRD (S/P/Bld) [Vol rate/Area] 42 ml/min/1.73sq m Abnormal >60 [facility] Comment on above: Order Comment: No: D o not add to previous draw Performed By: #### 0 0071, 10093 #### [facility] [address] [place] [address], [place] Glucose [Mass/Vol] 100 mg/dL Normal 70-100 [facility] Comment on above: Order Comment: No: D o not add to previous draw Performed By: #### 0 0071, 79600 #### [facility] [address] [place] [id number], [place] Potassium [Moles/Vol] 4.5 mmol/L Normal 3.5-5.1 [facility] Comment on above: Order Comment: No: D o not add to previous draw Performed By: #### 0 0071, 92527 #### [facility] [address] [place] [address], [place] Sodium [Moles/Vol] 139 mmol/L Normal 136-145 [facility] Comment on above: Order Comment: No: D o not add to previous draw Performed By: #### 0 0071, 87296 #### [facility] [address] [place] [address], [place] Urea nitrogen [Mass/Vol] 15 mg/dL Normal 7-25 [facility] Comment on above: Order Comment: No: D o not add to previous draw Performed By: #### 0 0071, 66415 #### [facility] [address] [place] [id number], [place] CBC W/DIFFon 10-08-2019 ABS BASOPHILS 0.1 10*3/uL Normal 0.0-0.2 [facility] Comment on above: Order Comment: No: D o not add to previous draw Performed By: #### 0 0071, 49111 #### [facility] [address] [place] [address], [place] ABS IMM GRANS 0.1 10*3/uL Normal 0.0-0.2 [facility] Comment on above: Order Comment: No: D o not add to previous draw Performed By: #### 0 0071, 44176 #### [facility] [address] [place] [address], [place] ABS NEUTROPHILS 5.1 10*3/uL Normal 1.6-7.6 [facility] Comment on above: Order Comment: No: D o not add to previous draw Performed By: #### 0 0071, 89002 #### [facility] [address] [place] [address], [place] Basophils/100 WBC (Bld) 0.8 % Normal 0.0-1.0 [facility] Comment on above: Order Comment: No: D o not add to previous draw Performed By: #### 0 0071, 01545 #### [facility] [address] [place] [address], [place] Eosinophils (Bld) [#/Vol] 0.3 10*3/uL Normal 0.0-0.5 [facility] Comment on above: Order Comment: No: D o not add to previous draw Performed By: #### 0 0071, 43333 #### [facility] [address] [place] [address], [place] Eosinophils/100 WBC (Bld) 3.9 % Normal 0.0-6.0 [facility] Comment on above: Order Comment: No: D o not add to previous draw Performed By: #### 0 0071, 29852 #### [facility] [address] [facility] [place] [id number], [place] Erythrocyte distribution width (RBC) [Ratio] 14.3 % Normal 11.5-15.0 [facility] Comment on above: Order Comment: No: D o not add to previous draw Performed By: #### 0 0071, 95963 #### [facility] [address] [facility] Hematocrit (Bld) [Volume fraction] 39.0 % Normal 39.0-50.0 [facility] Comment on above: Order Comment: No: D o not add to previous draw Performed By: #### 0 0071, 31961 #### [facility] [address] [facility] [address], [place] Hemoglobin (Bld) [Mass/Vol] 12.3 g/dL Low 13.0-17.0 [facility] Comment on above: Order Comment: No: D o not add to previous draw Performed By: #### 0 0071, 80576 #### [facility] [address] IMMATURE GRANS 0.8 % Normal 0.0-1.0 [facility] Comment on above: Order Comment: No: D o not add to previous draw Performed By: #### 0 0071, 97144 #### [facility] [address] Lymphocytes (Bld) [#/Vol] 1.2 10*3/uL Normal 1.2-4.0 [facility] Comment on above: Order Comment: No: D o not add to previous draw Performed By: #### 0 70, 42249 #### [facility] [address] [place] [address], [place] Lymphocytes/100 WBC (Bld) 16.1 % Low 20.0-45.0 [facility] Comment on above: Order Comment: No: D o not add to previous draw Performed By: #### 0 0071, 26011 #### [facility] [address] [place] [address], [place] MCH (RBC) [Entitic mass] 29.9 pg Normal 27.0-33.0 [facility] Comment on above: Order Comment: No: D o not add to previous draw Performed By: #### 0 0071, 00275 #### [facility] [address] [place] [address], [place] MCHC (RBC) [Mass/Vol] 31.5 g/dL Low 32.0-35.0 [facility] Comment on above: Order Comment: No: D o not add to previous draw Performed By: #### 0 0071, 98632 #### [facility] [address] [place] [address], [place] MCV (RBC) [Entitic vol] 94.9 fL Normal 82.0-98.0 [facility] Comment on above: Order Comment: No: D o not add to previous draw Performed By: #### 0 0071, 01172 #### [facility] [address] [facility] [address], [place] Monocytes (Bld) [#/Vol] 0.5 10*3/uL Normal 0.1-1.0 [facility] Comment on above: Order Comment: No: D o not add to previous draw Performed By: #### 0 0071, 27952 #### [facility] [address] [place] [address], [place] MONOS 6.3 % Normal 5.0-12.0 [facility] Comment on above: Order Comment: No: D o not add to previous draw Performed By: #### 0 0071, 67682 #### [facility] [address] [facility] [address], [place] Neutrophils/100 WBC (Bld) 72.1 % High 40.0-72.0 [facility] Comment on above: Order Comment: No: D o not add to previous draw Performed By: #### 0 0071, 40073 #### [facility] [address] [facility] [address], [place] Nucleated RBC/100 WBC (Bld) [Ratio] 0 % Normal 0-0 [facility] Comment on above: Order Comment: No: D o not add to previous draw Performed By: #### 0 0071, 35171 #### [facility] [address] [facility] [address], [place] PLAT CNT 168 10*3/uL Normal 150-400 [facility] Comment on above: Order Comment: No: D o not add to previous draw Performed By: #### 0 0071, 47097 #### [facility] [address] [place] [address], [place] RBC (Bld) [#/Vol] 4.11 10*6/uL Low 4.20-5.70 [facility] Comment on above: Order Comment: No: D o not add to previous draw Performed By: #### 0 0071, 56650 #### [facility] [address] [place] [address], [place] WBC (Bld) [#/Vol] 7.13 10*3/uL Normal 4.00-10.60 [facility] Comment on above: Order Comment: No: D o not add to previous draw Performed By: #### 0 0071, 46378 #### [facility] [address] US ABDOMEN LIMITED 020 US ABDOMEN LIMITED [facility] Department of Radiology [address] [place] [id number] ======== Patient Name: KEL CASTILLO : 1955 Sex: M Age: Race: White Pt. Location: [id number] Patient Status: I Ordered Date: 10/08/2019 9:30:00 [...] collection. Electronically signed: Brandy Wilson. Transcribed by: [email or web address], User Resident: BRANDY WILSON Electronically Signed by: BRANDY WILSON @ 10/08/2019 10:13 AM I personally read this/these film(s) with this resident Normal [facility] Comment on above: Order Comment: No: D o not add to previous draw BASIC METABOLIC PANELon 09-13 Calcium [Mass/Vol] 8.7 mg/dL Normal 8.6-10.3 [facility] Comment on above: Order Comment: No: D o not add to previous draw Performed By: #### 0 0071, 42617 #### [facility] [address] [place] [address], [place] Chloride [Moles/Vol] 111 mmol/L High 98-107 [facility] Comment on above: Order Comment: No: D o not add to previous draw Performed By: #### 0 0071, 38824 #### [facility] [address] [place] [address], [place] CO2 [Moles/Vol] 28 mmol/L Normal 21-31 [facility] Comment on above: Order Comment: No: D o not add to previous draw Performed By: #### 0 0071, 47077 #### [facility] [address] [place] [address], [place] Creatinine [Mass/Vol] 1.59 mg/dL High 0.70-1.30 [facility] Comment on above: Order Comment: No: D o not add to previous draw Performed By: #### 0 0071, 58597 #### [facility] [address] [place] [address], [place] GFR/1.73 sq M predicted among blacks MDRD (S/P/Bld) [Vol rate/Area] 53 ml/min/1.73sq m Abnormal >60 [facility] Comment on above: Order Comment: No: D o not add to previous draw Performed By: #### 0 0071, 33146 #### [facility] [address] [place] [address], [place] GFR/1.73 sq M predicted among non-blacks MDRD (S/P/Bld) [Vol rate/Area] 44 ml/min/1.73sq m Abnormal >60 [facility] Comment on above: Order Comment: No: D o not add to previous draw Performed By: #### 0 0071, 17372 #### [facility] [address] [place] [address], [place] Glucose [Mass/Vol] 99 mg/dL Normal 70-100 [facility] Comment on above: Order Comment: No: D o not add to previous draw Performed By: #### 0 0071, 13459 #### [facility] [address] [place] [address], [place] Potassium [Moles/Vol] 4.2 mmol/L Normal 3.5-5.1 [facility] Comment on above: Order Comment: No: D o not add to previous draw Performed By: #### 0 0071, 88006 #### [facility] [address] Sodium [Moles/Vol] 142 mmol/L Normal 136-145 [facility] Comment on above: Order Comment: No: D o not add to previous draw Performed By: #### 0 0071, 72343 #### [facility] [address] Urea nitrogen [Mass/Vol] 16 mg/dL Normal 7-25 [facility] Comment on above: Order Comment: No: D o not add to previous draw Performed By: #### 0 0071, 76746 #### [facility] [address] Cardiovascular Lab Reporton 10-07-2019 Cardiovascular Lab Report [facility] #: [id number] Department of Physician: Shaji Juarez M.D. Division of Service Date: 10/07/2019 Cardiology Birthdate: 1955 Adult Cardiovascular Room #: [id number] [place] [address] Cardiovascular Laboratory Report FINAL IMPRESSIONS: 1. Severe 3-vessel [place] coronary artery disease. 2. A 2/3 bypass [...] on the anatomic and fluoroscopic landmarks. A 6-[place] 11 cm sheath was inserted. Limited femoral [...] Man/Sarah Tolliver M.D. Date Trans: 10/07/2019 02:55 P/cesaro [id number] cc: Priyank Hendrickson M.D. [address] [place] [address] Nayana Bledsoe D. [address] [place] [address] Normal [facility] MAGNESIUM BLOODon 10-07-2019 Magnesium [Mass/Vol] 2.1 mg/dL Normal 1.9-2.7 [facility] Comment on above: Order Comment: No: D o not add to previous draw Performed By: #### 0 0071, 86418 #### [facility] [address] BASIC METABOLIC PANELon 09-13 Calcium [Mass/Vol] 8.7 mg/dL Normal 8.6-10.3 [facility] Comment on above: Order Comment: No: D o not add to previous draw Performed By: #### 0 0071, 19314 #### [facility] [address] [place] [address], [place] Chloride [Moles/Vol] 110 mmol/L High 98-107 [facility] Comment on above: Order Comment: No: D o not add to previous draw Performed By: #### 0 0071, 62510 #### [facility] [address] [place] [address], [place] CO2 [Moles/Vol] 26 mmol/L Normal 21-31 [facility] Comment on above: Order Comment: No: D o not add to previous draw Performed By: #### 0 0071, 74182 #### [facility] [address] [place] [address], [place] Creatinine [Mass/Vol] 1.92 mg/dL High 0.70-1.30 [facility] Comment on above: Order Comment: No: D o not add to previous draw Performed By: #### 0 0071, 32236 #### [facility] [address] [place] [address], [place] GFR/1.73 sq M predicted among blacks MDRD (S/P/Bld) [Vol rate/Area] 43 ml/min/1.73sq m Abnormal >60 [facility] Comment on above: Order Comment: No: D o not add to previous draw Performed By: #### 0 0071, 76319 #### [facility] [address] [place] [address], [place] GFR/1.73 sq M predicted among non-blacks MDRD (S/P/Bld) [Vol rate/Area] 35 ml/min/1.73sq m Abnormal >60 [facility] Comment on above: Order Comment: No: D o not add to previous draw Performed By: #### 0 0071, 10524 #### [facility] [address] [place] [address], [place] Glucose [Mass/Vol] 96 mg/dL Normal 70-100 [facility] Comment on above: Order Comment: No: D o not add to previous draw Performed By: #### 0 0071, 04981 #### [facility] [address] [place] [address], [place] Potassium [Moles/Vol] 4.4 mmol/L Normal 3.5-5.1 [facility] Comment on above: Order Comment: No: D o not add to previous draw Performed By: #### 0 0071, 44888 #### [facility] [address] [place] [address], [place] Sodium [Moles/Vol] 140 mmol/L Normal 136-145 [facility] Comment on above: Order Comment: No: D o not add to previous draw Performed By: #### 0 0071, 90302 #### [facility] [address] [place] [address], [place] Urea nitrogen [Mass/Vol] 25 mg/dL Normal 7-25 [facility] Comment on above: Order Comment: No: D o not add to previous draw Performed By: #### 0 0071, 59050 #### [facility] [address] [place] [address], [place] Calcium [Mass/Vol] 8.8 mg/dL Normal 8.6-10.3 [facility] Comment on above: Order Comment: No: D o not add to previous draw Performed By: #### 0 0071 #### [facility] [address] [place] [address], [place] Chloride [Moles/Vol] 111 mmol/L High 98-107 [facility] Comment on above: Order Comment: No: D o not add to previous draw Performed By: #### 0 0071 #### [facility] [address] [place] [address], [place] CO2 [Moles/Vol] 25 mmol/L Normal 21-31 [facility] Comment on above: Order Comment: No: D o not add to previous draw Performed By: #### 0 0071 #### [facility] [address] [place] [address], [place] Creatinine [Mass/Vol] 1.94 mg/dL High 0.70-1.30 [facility] Comment on above: Order Comment: No: D o not add to previous draw Performed By: #### 0 0071 #### [facility] [address] [place] [address], [place] GFR/1.73 sq M predicted among blacks MDRD (S/P/Bld) [Vol rate/Area] 42 ml/min/1.73sq m Abnormal >60 [facility] Comment on above: Order Comment: No: D o not add to previous draw Performed By: #### 0 0071 #### [facility] [address] [place] [address], [place] GFR/1.73 sq M predicted among non-blacks MDRD (S/P/Bld) [Vol rate/Area] 35 ml/min/1.73sq m Abnormal >60 [facility] Comment on above: Order Comment: No: D o not add to previous draw Performed By: #### 0 0071 #### [facility] [address] [place] [address], [place] Glucose [Mass/Vol] 102 mg/dL High 70-100 [facility] Comment on above: Order Comment: No: D o not add to previous draw Performed By: #### 0 0071 #### [facility] [address] [place] [address], [place] Potassium [Moles/Vol] 4.5 mmol/L Normal 3.5-5.1 [facility] Comment on above: Order Comment: No: D o not add to previous draw Performed By: #### 0 0071 #### [facility] [address] [place] [address], [place] Sodium [Moles/Vol] 140 mmol/L Normal 136-145 [facility] Comment on above: Order Comment: No: D o not add to previous draw Performed By: #### 0 0071 #### [facility] [address] Urea nitrogen [Mass/Vol] 27 mg/dL High 7-25 [facility] Comment on above: Order Comment: No: D o not add to previous draw Performed By: #### 0 0071 #### [facility] [address] CBC W/DIFFon 10-06-2019 ABS BASOPHILS 0.1 10*3/uL Normal 0.0-0.2 [facility] Comment on above: Order Comment: No: D o not add to previous draw Performed By: #### 5 0103 #### [facility] [address] ABS IMM GRANS 0.1 10*3/uL Normal 0.0-0.2 [facility] Comment on above: Order Comment: No: D o not add to previous draw Performed By: #### 5 3 #### [facility] [address] ABS NEUTROPHILS 4.2 10*3/uL Normal 1.6-7.6 [facility] Comment on above: Order Comment: No: D o not add to previous draw Performed By: #### 5 0103 #### [facility] [address] [place] [address], [place] Basophils/100 WBC (Bld) 0.9 % Normal 0.0-1.0 [facility] Comment on above: Order Comment: No: D o not add to previous draw Performed By: #### 5 0103 #### [facility] [address] [place] [address], [place] Eosinophils (Bld) [#/Vol] 0.3 10*3/uL Normal 0.0-0.5 [facility] Comment on above: Order Comment: No: D o not add to previous draw Performed By: #### 5 0103 #### [facility] [address] [facility] [place] [address], [place] Eosinophils/100 WBC (Bld) 4.8 % Normal 0.0-6.0 [facility] Comment on above: Order Comment: No: D o not add to previous draw Performed By: #### 5 0103 #### [facility] [address] Erythrocyte distribution width (RBC) [Ratio] 14.3 % Normal 11.5-15.0 [facility] Comment on above: Order Comment: No: D o not add to previous draw Performed By: #### 5 0103 #### [facility] [address] Hematocrit (Bld) [Volume fraction] 37.3 % Low 39.0-50.0 [facility] Comment on above: Order Comment: No: D o not add to previous draw Performed By: #### 5 0103 #### [facility] [address] Hemoglobin (Bld) [Mass/Vol] 11.7 g/dL Low 13.0-17.0 [facility] Comment on above: Order Comment: No: D o not add to previous draw Performed By: #### 5 0103 #### [facility] [address] [place] [address], [place] IMMATURE GRANS 1.3 % High 0.0-1.0 [facility] Comment on above: Order Comment: No: D o not add to previous draw Performed By: #### 5 0103 #### [facility] [address] [place] [address], [place] Lymphocytes (Bld) [#/Vol] 1.5 10*3/uL Normal 1.2-4.0 [facility] Comment on above: Order Comment: No: D o not add to previous draw Performed By: #### 5 0103 #### [facility] [address] [place] [address], [place] Lymphocytes/100 WBC (Bld) 21.8 % Normal 20.0-45.0 [facility] Comment on above: Order Comment: No: D o not add to previous draw Performed By: #### 5 0103 #### [facility] [address] [place] [address], [place] MCH (RBC) [Entitic mass] 29.5 pg Normal 27.0-33.0 [facility] Comment on above: Order Comment: No: D o not add to previous draw Performed By: #### 5 0103 #### [facility] [address] [place] [address], [place] MCHC (RBC) [Mass/Vol] 31.4 g/dL Low 32.0-35.0 [facility] Comment on above: Order Comment: No: D o not add to previous draw Performed By: #### 5 0103 #### [facility] [address] [place] [address], [place] MCV (RBC) [Entitic vol] 94.0 fL Normal 82.0-98.0 [facility] Comment on above: Order Comment: No: D o not add to previous draw Performed By: #### 5 0103 #### [facility] [address] [facility] [address], [place] Monocytes (Bld) [#/Vol] 0.6 10*3/uL Normal 0.1-1.0 [facility] Comment on above: Order Comment: No: D o not add to previous draw Performed By: #### 5 0103 #### [facility] [address] [place] [address], [place] MONOS 8.2 % Normal 5.0-12.0 [facility] Comment on above: Order Comment: No: D o not add to previous draw Performed By: #### 5 0103 #### [facility] [address] [place] [address], [place] Neutrophils/100 WBC (Bld) 63.0 % Normal 40.0-72.0 [facility] Comment on above: Order Comment: No: D o not add to previous draw Performed By: #### 5 3 #### [facility] [address] [place] [address], [place] Nucleated RBC/100 WBC (Bld) [Ratio] 0 % Normal 0-0 [facility] Comment on above: Order Comment: No: D o not add to previous draw Performed By: #### 5 3 #### [facility] [address] [place] [id number], [place] PLAT CNT 162 10*3/uL Normal 150-400 [facility] Comment on above: Order Comment: No: D o not add to previous draw Performed By: #### 5 3 #### [facility] [address] [place] [address], [place] RBC (Bld) [#/Vol] 3.97 10*6/uL Low 4.20-5.70 [facility] Comment on above: Order Comment: No: D o not add to previous draw Performed By: #### 5 3 #### [facility] [address] [place] [id number], [place] WBC (Bld) [#/Vol] 6.69 10*3/uL Normal 4.00-10.60 [facility] Comment on above: Order Comment: No: D o not add to previous draw Performed By: #### 5 3 #### [facility] [address] [place] [id number], [place] BASIC METABOLIC PANELon - Calcium [Mass/Vol] 9.7 mg/dL Normal 8.6-10.3 [facility] Comment on above: Order Comment: No: D o not add to previous draw Performed By: #### 0 0071, 75553 #### [facility] [address] [place] [address], [place] Chloride [Moles/Vol] 105 mmol/L Normal 98-107 [facility] Comment on above: Order Comment: No: D o not add to previous draw Performed By: #### 0 0071, [id number] #### [facility] [address] [place] [address], [place] CO2 [Moles/Vol] 25 mmol/L Normal 21-31 [facility] Comment on above: Order Comment: No: D o not add to previous draw Performed By: #### 0 0071, 79122 #### [facility] [address] [place] [address], [place] Creatinine [Mass/Vol] 2.13 mg/dL High 0.70-1.30 [facility] Comment on above: Order Comment: No: D o not add to previous draw Performed By: #### 0 0071, 81989 #### [facility] [address] [place] [address], [place] GFR/1.73 sq M predicted among blacks MDRD (S/P/Bld) [Vol rate/Area] 38 ml/min/1.73sq m Abnormal >60 [facility] Comment on above: Order Comment: No: D o not add to previous draw Performed By: #### 0 0071, 43526 #### [facility] [address] [place] [address], [place] GFR/1.73 sq M predicted among non-blacks MDRD (S/P/Bld) [Vol rate/Area] 31 ml/min/1.73sq m Abnormal >60 [facility] Comment on above: Order Comment: No: D o not add to previous draw Performed By: #### 0 0071, 12948 #### [facility] [address] [place] [address], [place] Glucose [Mass/Vol] 114 mg/dL High 70-100 [facility] Comment on above: Order Comment: No: D o not add to previous draw Performed By: #### 0 0071, 21789 #### [facility] [address] [facility] [address] Potassium [Moles/Vol] 4.7 mmol/L Normal 3.5-5.1 [facility] Comment on above: Order Comment: No: D o not add to previous draw Performed By: #### 0 0071, 48675 #### [facility] [address] Sodium [Moles/Vol] 140 mmol/L Normal 136-145 [facility] Comment on above: Order Comment: No: D o not add to previous draw Performed By: #### 0 0071, 50305 #### [facility] [address] Urea nitrogen [Mass/Vol] 32 mg/dL High 7-25 [facility] Comment on above: Order Comment: No: D o not add to previous draw Performed By: #### 0 0071, 27591 #### [facility] [address] CBC W/DIFFon 10-05-2019 ABS BASOPHILS 0.1 10*3/uL Normal 0.0-0.2 [facility] Comment on above: Performed By: #### 5 3 #### [facility] [address] ABS IMM GRANS 0.1 10*3/uL Normal 0.0-0.2 [facility] Comment on above: Performed By: #### 5 102 #### [facility] [address] ABS NEUTROPHILS 6.2 10*3/uL Normal 1.6-7.6 [facility] Comment on above: Performed By: #### 5 3 #### [facility] [address] [place] [address], [place] Basophils/100 WBC (Bld) 0.7 % Normal 0.0-1.0 [facility] Comment on above: Performed By: #### 5 0103 #### [facility] [address] [facility] [address], [place] Eosinophils (Bld) [#/Vol] 0.3 10*3/uL Normal 0.0-0.5 [facility] Comment on above: Performed By: #### 5 0103 #### [facility] [address] [place] [address], [place] Eosinophils/100 WBC (Bld) 4.0 % Normal 0.0-6.0 [facility] Comment on above: Performed By: #### 5 0103 #### [facility] [address] Erythrocyte distribution width (RBC) [Ratio] 14.4 % Normal 11.5-15.0 [facility] Comment on above: Performed By: #### 5 3 #### [facility] [address] Hematocrit (Bld) [Volume fraction] 39.3 % Normal 39.0-50.0 [facility] Comment on above: Performed By: #### 5 0103 #### [facility] [address] Hemoglobin (Bld) [Mass/Vol] 12.7 g/dL Low 13.0-17.0 [facility] Comment on above: Performed By: #### 5 0103 #### [facility] [address] [place] [address], [place] IMMATURE GRANS 0.8 % Normal 0.0-1.0 [facility] Comment on above: Performed By: #### 5 0103 #### [facility] [address] Lymphocytes (Bld) [#/Vol] 1.4 10*3/uL Normal 1.2-4.0 [facility] Comment on above: Performed By: #### 5 0103 #### [facility] [address] Lymphocytes/100 WBC (Bld) 16.6 % Low 20.0-45.0 [facility] Comment on above: Performed By: #### 3 #### [facility] [address] MCH (RBC) [Entitic mass] 30.3 pg Normal 27.0-33.0 [facility] Comment on above: Performed By: #### 102 #### [facility] [address] MCHC (RBC) [Mass/Vol] 32.3 g/dL Normal 32.0-35.0 [facility] Comment on above: Performed By: #### 102 #### [facility] [address] MCV (RBC) [Entitic vol] 93.8 fL Normal 82.0-98.0 [facility] Comment on above: Performed By: #### 5 3 #### [facility] [address] [place] [address], [place] Monocytes (Bld) [#/Vol] 0.4 10*3/uL Normal 0.1-1.0 [facility] Comment on above: Performed By: #### 5 3 #### [facility] [address] [place] [address], [place] MONOS 4.9 % Low 5.0-12.0 [facility] Comment on above: Performed By: #### 5 3 #### [facility] [address] [place] [address], [place] Neutrophils/100 WBC (Bld) 73.0 % High 40.0-72.0 [facility] Comment on above: Performed By: #### 5 0103 #### [facility] [address] [place] [address], [place] Nucleated RBC/100 WBC (Bld) [Ratio] 0 % Normal 0-0 [facility] Comment on above: Performed By: #### 5 0103 #### [facility] [address] [place] [address], [place] PLAT CNT 205 10*3/uL Normal 150-400 [facility] Comment on above: Performed By: #### 5 0103 #### [facility] [address] [place] [address], [place] RBC (Bld) [#/Vol] 4.19 10*6/uL Low 4.20-5.70 [facility] Comment on above: Performed By: #### 5 0103 #### [facility] [address] [place] [address], [place] WBC (Bld) [#/Vol] 8.53 10*3/uL Normal 4.00-10.60 [facility] Comment on above: Performed By: #### 5 0103 #### [facility] [address] [place] [address], [place] CREATININE URINE RANDOMon Creatinine [Mass/Vol] 62.0 mg/dL Normal [facility] Comment on above: Order Comment: No: D o not add to previous draw Result Comment: Ther e are no established reference values for random urine specimens Performed By: #### 2 5706, 12359, 31415 #### [facility] [address] [place] [address], [place] LIVER BATTERYon 10-05-2019 Albumin [Mass/Vol] 4.6 g/dL Normal 3.5-5.7 [facility] Comment on above: Order Comment: Yes: Add to Previous draw if able Performed By: #### 0 0071, 16262 #### [facility] [address] [place] [address], [place] ALKALINE PHOSPH 56 IU/L Normal 34-104 [facility] Comment on above: Order Comment: Yes: Add to Previous draw if able Performed By: #### 0 0071, 78564 #### [facility] [address] [place] [address], [place] ALT [Catalytic activity/Vol] 26 U/L Normal 7-52 [facility] Comment on above: Order Comment: Yes: Add to Previous draw if able Performed By: #### 0 0071, 31683 #### [facility] [address] [place] [address], [place] AST [Catalytic activity/Vol] 25 U/L Normal 13-39 [facility] Comment on above: Order Comment: Yes: Add to Previous draw if able Performed By: #### 0 0071, 14060 #### [facility] [address] [place] [address], [place] Bilirubin [Mass/Vol] 0.5 mg/dL Normal 0.3-1.0 [facility] Comment on above: Order Comment: Yes: Add to Previous draw if able Performed By: #### 0 0071, 23904 #### [facility] [address] [place] [address], [place] Bilirubin.direct [Mass/Vol] 0.1 mg/dL Normal 0.0-0.2 [facility] Comment on above: Order Comment: Yes: Add to Previous draw if able Performed By: #### 0 0071, 10260 #### [facility] [address] [place] [address], [place] Protein [Mass/Vol] 7.6 g/dL Normal 6.0-8.3 [facility] Comment on above: Order Comment: Yes: Add to Previous draw if able Performed By: #### 0 0071, 35680 #### [facility] [address] [place] [address], [place] SODIUM URINE RANDOMon 2019 Sodium (U) [Moles/Vol] 111 mmol/L Normal [facility] Comment on above: Order Comment: No: D o not add to previous draw Result Comment: Ther e are no established reference values for random urine specimens Performed By: #### 2 5706, 84107, 51001 #### [facility] [address] [place] [address], [place] UA,MICROSCOPIC REQUIREDon Appearance (U) CLEAR Normal CLEAR [facility] Comment on above: Order Comment: No: D o not add to previous draw Performed By: #### 9 0150 #### [facility] [address] [place] [address], [place] Bilirubin [Mass/Vol] Negative Normal NEGATIVE [facility] Comment on above: Order Comment: No: D o not add to previous draw Performed By: #### 9 0150 #### [facility] [address] [place] [address], [place] BLOOD Negative Normal NEGATIVE [facility] Comment on above: Order Comment: No: D o not add to previous draw Performed By: #### 9 0150 #### [facility] [address] [place] [address], [place] Color (U) YELLOW Normal YELLOW [facility] Comment on above: Order Comment: No: D o not add to previous draw Performed By: #### 9 0150 #### [facility] [address] [place] [address], [place] EPIS OCC Normal FEW,OCC,NONE SEEN [facility] Comment on above: Order Comment: No: D o not add to previous draw Performed By: #### 9 0150 #### [facility] [address] [place] [address], [place] Glucose [Mass/Vol] Negative Normal NEGATIVE [facility] Comment on above: Order Comment: No: D o not add to previous draw Performed By: #### 9 0150 #### [facility] [address] [place] [address], [place] HYALINE CASTS 1 /LPF Abnormal NONE SEEN [facility] Comment on above: Order Comment: No: D o not add to previous draw Performed By: #### 9 0150 #### [facility] [address] [place] [address], [place] KETONE Negative Normal NEGATIVE [facility] Comment on above: Order Comment: No: D o not add to previous draw Performed By: #### 9 0150 #### [facility] [address] [place] [address], [place] LEUK BURAK Negative Normal NEGATIVE [facility] Comment on above: Order Comment: No: D o not add to previous draw Performed By: #### 9 0150 #### [facility] [address] [place] [address], [place] Nitrite Ql (U) Negative Normal NEGATIVE [facility] Comment on above: Order Comment: No: D o not add to previous draw Performed By: #### 9 0150 #### [facility] [address] [place] [address], [place] pH (Bld) 6.0 Normal 5.0-8.0 [facility] Comment on above: Order Comment: No: D o not add to previous draw Performed By: #### 9 0150 #### [facility] [address] [place] [address], [place] Protein [Mass/Vol] Negative Normal NEGATIVE [facility] Comment on above: Order Comment: No: D o not add to previous draw Performed By: #### 9 0150 #### [facility] [address] [place] [address], [place] RBC (Bld) [#/Vol] 0-2 Abnormal NONE SEEN [facility] Comment on above: Order Comment: No: D o not add to previous draw Performed By: #### 9 0150 #### [address] SPEC GRAV 1.012 Low 1.015-1.020 [facility] Comment on above: Order Comment: No: D o not add to previous draw Performed By: #### 9 0150 #### [facility] [address] [place] [address], [place] WBC UA 0-2 Abnormal NONE SEEN [facility] Comment on above: Order Comment: No: D o not add to previous draw Performed By: #### 9 0150 #### [address] UREA NITROGEN URon 0 Urea nitrogen [Mass/Vol] 566 mg/dL Normal [facility] Comment on above: Order Comment: No: D o not add to previous draw Result Comment: Ther e are no established reference values for random urine specimens Performed By: #### 2 5706, 58982, 55134 #### [address] US RENALon 10-05-2019 US RENAL [facility] Department of Radiology [address] [place] [id number] ======== Patient Name: KEL CASTILLO : 1955 Sex: M Age: Race: White Pt. Location: [id number] Patient Status: I Ordered Date: 10/05/2019 10:45:00 [...] hydronephrosis. Electronically signed: Robinson Castellanos. Transcribed by: [email or web address], User Resident: Electronically Signed by: ROBINSON CASTELLANOS @ 10/05/2019 03:41 PM Normal [facility] Comment on above: Order Comment: [place] nephrosis Vital Signs Date Time Vital Sign Value Performing Clinician Facility 04-01-2025 14:14040 Body height 167.6 cm Bill Gant MD Work Phone: [facility] 04-01-2025 14:14-0400 Body mass index (BMI) [Ratio] 26.63 kg/m2 Bill Gant MD Work Phone: [facility] 04-01-2025 14:14040 Body weight 74.84 kg Bill Gant MD Work Phone: [facility] 04-01-2025 14:14-040 Diastolic blood pressure 58 mm[Hg] Bill Gant MD Work Phone: [facility] 04-01-2025 14:14-0400 Heart rate 59 /min Bill Gant MD Work Phone: [facility] 04-01-2025 14:14-0400 SaO2% (BldA) [Mass fraction] 99 % Bill Gant MD Work Phone: [facility] 04-01-2025 14:14-0400 Systolic blood pressure 123 mm[Hg] Bill Gant MD Work Phone: [facility] 03-10-2025 09:53-0400 Body height 165.1 cm Darrick Verhoff PA-C Work Phone: [facility] [employer] [facility] 03-10-2025 09:53-0400 Body mass index (BMI) [Ratio] 27.12 kg/m2 Darrick Verhoff PA-C Work Phone: [facility] [employer] [facility] 03-10-2025 09:53-0400 Body weight 73.94 kg Darrick Verhoff PA-C Work Phone: [facility] [employer] [facility] 03-10-2025 09:53-0400 Diastolic blood pressure 54 mm[Hg] Darrick Verhoff PA-C Work Phone: [facility] 03-10-2025 09:53-0400 Heart rate 51 /min Darrick Verhoff PA-C Work Phone: [facility] [employer] 03-10-2025 09:53-0400 Respiratory rate 18 /min Darrick Verhoff PA-C Work Phone: [facility] [employer] [facility] 03-10-2025 09:53-0400 SaO2% (BldA) [Mass fraction] 100 % Darrick Verhoff PA-C Work Phone: [facility] [employer] [facility] 03-10-2025 09:53-0400 Systolic blood pressure 123 mm[Hg] Darrick Verhoff PA-C Work Phone: [facility] [employer] 03-01-2025 13:45-0400 Body mass index (BMI) [Ratio] 25.33 kg/m2 Susan Watson DIRECT CARE STAFFER Work Phone: [facility] 03-01-2025 13:45-0400 Body temperature 97.3 [degF] Susan Watson DIRECT CARE STAFFER Work Phone: [facility] 03-01-2025 13:45-0400 Body weight 75.57 kg Susan Watson DIRECT CARE STAFFER Work Phone: [facility] 03-01-2025 13:45-0400 Diastolic blood pressure 64 mm[Hg] Susan Manzoz DIRECT CARE STAFFER Work Phone: [facility] 03-01-2025 13:45-0400 Heart rate 54 /min Susanman Manzoz DIRECT CARE STAFFER Work Phone: [facility] 03-01-2025 13:45-0400 Respiratory rate 18 /min Susanman Manzoz DIRECT CARE STAFFER Work Phone: [facility] 03-01-2025 13:45-0400 SaO2% (BldA) [Mass fraction] 97 % Susan Manzoz DIRECT CARE STAFFER Work Phone: [facility] 03-01-2025 13:45-0400 Systolic blood pressure 126 mm[Hg] Susan Manzoz DIRECT CARE STAFFER Work Phone: [facility] 01-27-2025 10:22-0400 Body height 167.6 cm Darrick Verhoff PA-C Work Phone: [facility] 01-27-2025 10:22-0400 Body mass index (BMI) [Ratio] 26.79 kg/m2 Darrick Verhoff PA-C Work Phone: [facility] 01-27-2025 10:22-0400 Body weight 75.3 kg Darrick Verhoff PA-C Work Phone: [facility] 01-27-2025 10:22-0400 Diastolic blood pressure 62 mm[Hg] Darrick Verhoff PA-C Work Phone: [facility] 01-27-2025 10:22-0400 Heart rate 57 /min Darrick Verhoff PA-C Work Phone: [facility] 01-27-2025 10:22-0400 Respiratory rate 20 /min Darrick Verhoff PA-C Work Phone: [facility] 01-27-2025 10:22-0400 Systolic blood pressure 129 mm[Hg] Darrick Sauer PA-C Work Phone: [facility] 01-19-2025 16:26-0400 Body height 165.1 cm [facility] 01-19-2025 16:26-0400 Body mass index (BMI) [Ratio] 27.8 kg/m2 [facility] 01-19-2025 16:26-0400 Body weight 75.74 kg [facility] 01-19-2025 16:26-0400 Diastolic blood pressure 53 mm[Hg] [facility] 01-19-2025 16:26-0400 Heart rate 64 /min [facility] 01-19-2025 16:26-0400 Respiratory rate 16 /min [facility] 01-19-2025 16:26-0400 SaO2% (BldA) [Mass fraction] 96 % [facility] 01-19-2025 16:26-0400 Systolic blood pressure 125 mm[Hg] [facility] 01-19-2025 13:06-0400 Body mass index (BMI) [Ratio] 25.21 kg/m2 Susan Watson DIRECT CARE STAFFER Work Phone: [facility] 01-19-2025 13:06-0400 Body temperature 98.49 [degF] Susan Watson DIRECT CARE STAFFER Work Phone: [facility] 01-19-2025 13:06-0400 Body weight 75.21 kg Susan Shirley DIRECT CARE STAFFER Work Phone: [facility] 01-19-2025 13:06-0400 Diastolic blood pressure 70 mm[Hg] Susan Shirley DIRECT CARE STAFFER Work Phone: [facility] 01-19-2025 13:06-0400 Heart rate 66 /min Susan Watson DIRECT CARE STAFFER Work Phone: [facility] 01-19-2025 13:06-0400 Respiratory rate 18 /min Susan Manzoz DIRECT CARE STAFFER Work Phone: [facility] 01-19-2025 13:06-0400 SaO2% (BldA) [Mass fraction] 96 % Susan Irisholz DIRECT CARE STAFFER Work Phone: [facility] 01-19-2025 13:06-0400 Systolic blood pressure 130 mm[Hg] Susan Aichholz DIRECT CARE STAFFER Work Phone: [facility] 11-19-2024 13:03-0400 Body mass index (BMI) [Ratio] 25.21 kg/m2 Susan Aichholz DIRECT CARE STAFFER Work Phone: [facility] 11-19-2024 13:03-0400 Body temperature 98.71 [degF] Susan Rigobertohholz DIRECT CARE STAFFER Work Phone: [facility] 11-19-2024 13:03-0400 Body weight 75.21 kg Susan Irisholz DIRECT CARE STAFFER Work Phone: [facility] 11-19-2024 13:03-0400 Diastolic blood pressure 70 mm[Hg] Susan Aichholz DIRECT CARE STAFFER Work Phone: [facility] 11-19-2024 13:03-0400 Heart rate 67 /min Susan Irisholz DIRECT CARE STAFFER Work Phone: [facility] 11-19-2024 13:03-0400 Respiratory rate 18 /min Susan Irisholz DIRECT CARE STAFFER Work Phone: [facility] 11-19-2024 13:03-0400 SaO2% (BldA) [Mass fraction] 96 % Susan Rigobertohholz DIRECT CARE STAFFER Work Phone: [facility] 11-19-2024 13:03-0400 Systolic blood pressure 130 mm[Hg] Susan Aichholz DIRECT CARE STAFFER Work Phone: [facility] 10-27-2024 15:59-0400 Body height 165.1 cm [facility] 10-27-2024 15:59-0400 Body mass index (BMI) [Ratio] 27.8 kg/m2 [facility] 10-27-2024 15:59-0400 Body weight 75.8 kg [facility] 10-27-2024 15:59-0400 Diastolic blood pressure 73 mm[Hg] [facility] 10-27-2024 15:59-0400 Heart rate 56 /min [facility] 10-27-2024 15:59-0400 Respiratory rate 16 /min [facility] 10-27-2024 15:59-0400 SaO2% (BldA) [Mass fraction] 95 % [facility] 10-27-2024 15:59-0400 Systolic blood pressure 145 mm[Hg] [facility] 10-12-2024 11:22-0500 Body height 165.1 cm Ebonysotero Kaufman Sofia DO Work Phone: [facility] 10-12-2024 11:22-0500 Body mass index (BMI) [Ratio] 28.29 kg/m2 Ebonysotero Kaufman Sofia DO Work Phone: [facility] 10-12-2024 11:22-0500 Body weight 77.1 kg Ebony Mandeep Sofia DO Work Phone: [facility] 10-12-2024 11:22-0500 Diastolic blood pressure 61 mm[Hg] Ebony Mandeep Sofia DO Work Phone: [facility] 10-12-2024 11:22-0500 Heart rate 58 /min Ebonysotero Kaufman Sofia DO Work Phone: [facility] 10-12-2024 11:22-0500 Systolic blood pressure 136 mm[Hg] Ebony Mandeep Sofia DO Work Phone: [facility] 10-08-2024 13:45-0500 Body mass index (BMI) [Ratio] 25.82 kg/m2 Susan Watson DIRECT CARE STAFFER Work Phone: [facility] 10-08-2024 13:45-0500 Body temperature 98.1 [degF] Susan Watson DIRECT CARE STAFFER Work Phone: [facility] 10-08-2024 13:45-0500 Body weight 77.02 kg Susanman Simmonsholz DIRECT CARE STAFFER Work Phone: [facility] 10-08-2024 13:45-0500 Diastolic blood pressure 72 mm[Hg] Susan Rigobertohholz DIRECT CARE STAFFER Work Phone: [facility] 10-08-2024 13:45-0500 Heart rate 51 /min Susanman Simmonsholz DIRECT CARE STAFFER Work Phone: [facility] 10-08-2024 13:45-0500 Respiratory rate 18 /min Susan Rigobertohholz DIRECT CARE STAFFER Work Phone: [facility] 10-08-2024 13:45-0500 SaO2% (BldA) [Mass fraction] 97 % Susan Simmonsholz DIRECT CARE STAFFER Work Phone: [facility] 10-08-2024 13:45-0500 Systolic blood pressure 130 mm[Hg] Susan Irisholz DIRECT CARE STAFFER Work Phone: [facility] 06-17-2024 13:13-0500 Body height 172.7 cm Jayy Coronado DIRECT CARE STAFFER Work Phone: [facility] 06-17-2024 13:13-0500 Body mass index (BMI) [Ratio] 27.55 kg/m2 Jayy Coronado DIRECT CARE STAFFER Work Phone: [facility] 06-17-2024 13:13-0500 Body temperature 96.6 [degF] Jayy Coronado DIRECT CARE STAFFER Work Phone: [facility] 06-17-2024 13:13-0500 Body weight 82.19 kg Jayy Coronado DIRECT CARE STAFFER Work Phone: [facility] 06-17-2024 13:13-0500 Diastolic blood pressure 78 mm[Hg] Jayy Coronado DIRECT CARE STAFFER Work Phone: [facility] 06-17-2024 13:13-0500 Heart rate 57 /min Jayy Coronado DIRECT CARE STAFFER Work Phone: [facility] 06-17-2024 13:13-0500 Respiratory rate 16 /min Jayy Moyerk DIRECT CARE STAFFER Work Phone: [facility] 06-17-2024 13:13-0500 SaO2% (BldA) [Mass fraction] 94 % Jayy Moyerk DIRECT CARE STAFFER Work Phone: [facility] 06-17-2024 13:13-0500 Systolic blood pressure 122 mm[Hg] Jayy Moyerk DIRECT CARE STAFFER Work Phone: [facility] 05-04-2024 09:36-0400 Body height 167.6 cm Ebonysotero Kaufman Sofia DO Work Phone: [facility] 05-04-2024 09:36-0400 Body mass index (BMI) [Ratio] 28.64 kg/m2 Ebonysotero Kaufman Sofia DO Work Phone: [facility] 05-04-2024 09:36-0400 Body weight 80.5 kg Ebonysotero Kaufman Sofia DO Work Phone: [facility] 05-04-2024 09:36-0400 Diastolic blood pressure 63 mm[Hg] Ebonysotero Kaufman Sofia DO Work Phone: [facility] 05-04-2024 09:36-0400 Heart rate 57 /min Ebonysotero Kaufman Sofia DO Work Phone: [facility] 05-04-2024 09:36-0400 Systolic blood pressure 138 mm[Hg] Ebonysotero Kaufman Sofia DO Work Phone: [facility] 03-31-2024 13:00-0400 Body height 167.64 cm [facility] 03-31-2024 13:00-0400 Body mass index (BMI) [Ratio] 29.4 kg/m2 [facility] 03-31-2024 13:00-0400 Body temperature 97 [degF] [facility] 03-31-2024 13:00-0400 Body weight 82.72 kg [facility] 03-31-2024 13:00-0400 Diastolic blood pressure 63 mm[Hg] [facility] 03-31-2024 13:00-0400 Heart rate 58 /min [facility] 03-31-2024 13:00-0400 Respiratory rate 18 /min [facility] 03-31-2024 13:00-0400 SaO2% (BldA) [Mass fraction] 97 % [facility] 03-31-2024 13:00-0400 Systolic blood pressure 143 mm[Hg] [facility] 09-19-2023 13:53-0500 Body height 172.7 cm Shaikh Cornelio LEMON Work Phone: [facility] 09-19-2023 13:53-0500 Body mass index (BMI) [Ratio] 28.43 kg/m2 Shaikh Cornelio LEMON Work Phone: [facility] 09-19-2023 13:53-0500 Body temperature 97.5 [degF] Shaikh Cornelio LEMON Work Phone: [facility] 09-19-2023 13:53-0500 Body weight 84.82 kg Shaikh Cornelio LEMON Work Phone: [facility] 09-19-2023 13:53-0500 Diastolic blood pressure 60 mm[Hg] Shaikh Cornelio LEMON Work Phone: [facility] 09-19-2023 13:53-0500 Heart rate 59 /min Shaikh Cornelio LEMON Work Phone: [facility] 09-19-2023 13:53-0500 SaO2% (BldA) [Mass fraction] 95 % Shaikh Cornelio LEMON Work Phone: [facility] 09-19-2023 13:53-0500 Systolic blood pressure 118 mm[Hg] Shaikh Cornelio LEMON Work Phone: [facility] 01-25-2023 10:00-0400 Body height 167.64 cm Aziz Bakhous Other [employer] Other 01-25-2023 10:00-0400 Body mass index (BMI) [Ratio] 31.57 kg/m2 Lisseth Harveys Other [employer] Other 01-25-2023 10:00-0400 Body temperature 96.2 [degF] Lisseth Toscano Other [employer] Other 01-25-2023 10:00-0400 Body weight 88.72 kg Lisseth Harveys Other [employer] Other 01-25-2023 10:00-0400 Diastolic blood pressure 76 mm[Hg] Lisseth Harveys Other [employer] Other 01-25-2023 10:00-0400 Respiratory rate 20 /min Lisseth Toscano Other [employer] Other 01-25-2023 10:00-0400 SaO2% (BldA) [Mass fraction] 98 % Lisseth Toscano Other [employer] Other 01-25-2023 10:00-0400 Systolic blood pressure 147 mm[Hg] Lisseth Harveys Other [employer] Other 08-15-2022 15:40-0500 Body height 167.6 cm Ebony Mandeep DO Work Phone: [facility] 08-15-2022 15:40-0500 Body weight 89.81 kg Ebony Mandeep DO Work Phone: [facility] 08-15-2022 15:40-0500 Diastolic blood pressure 78 mm[Hg] Ebony Mandeep DO Work Phone: [facility] 08-15-2022 15:40-0500 Heart rate 61 /min Ebony Kaufman DO Work Phone: [facility] 08-15-2022 15:40-0500 SaO2% (BldA) [Mass fraction] 100 % Ebony Kaufman DO Work Phone: [facility] 08-15-2022 15:40-0500 Systolic blood pressure 148 mm[Hg] Ebony Kaufman DO Work Phone: [facility] 07-10-2022 14:40-0500 Body height 167.64 cm Lisseth Harveys Other [employer] Other 07-10-2022 14:40-0500 Body mass index (BMI) [Ratio] 31.95 kg/m2 Azryan Harveys Other [employer] Other 07-10-2022 14:40-0500 Body weight 89.81 kg Azryan Harveys Other [employer] Other 07-10-2022 14:40-0500 Diastolic blood pressure 70 mm[Hg] Azryan Ortizhous Other [employer] Other 07-10-2022 14:40-0500 SaO2% (BldA) [Mass fraction] 95 % Azryan Ortizhous Other [employer] Other 07-10-2022 14:40-0500 Systolic blood pressure 128 mm[Hg] Aziz Bakhous Other [employer] Other 06-05-2022 16:30-0400 Body height 167.64 cm Corona Monroe Other [employer] Other 06-05-2022 16:30-0400 Body mass index (BMI) [Ratio] 32.12 kg/m2 Corona Monroe Other [employer] Other 06-05-2022 16:30-0400 Body temperature 96.5 [degF] Corona Caseban Other [employer] Other 06-05-2022 16:30-0400 Body weight 90.27 kg Corona Caseban Other [employer] Other 06-05-2022 16:30-0400 Diastolic blood pressure 82 mm[Hg] Corona Caseban Other [employer] Other 06-05-2022 16:30-0400 Respiratory rate 20 /min Corona Caseban Other [employer] Other 06-05-2022 16:30-0400 SaO2% (BldA) [Mass fraction] 96 % Corona Monroe Other [employer] Other 06-05-2022 16:30-0400 Systolic blood pressure 140 mm[Hg] Corona Caseban Other [employer] Other 04-10-2022 09:44-0400 Body height 165.1 cm Ebony Mandeep DO Work Phone: [facility] 04-10-2022 09:44-0400 Body weight 89.68 kg Ebony Mandeep DO Work Phone: [facility] 04-10-2022 09:44-0400 Diastolic blood pressure 69 mm[Hg] Ebony Mandeep DO Work Phone: [facility] 04-10-2022 09:44-0400 Heart rate 57 /min Ebony Mandeep DO Work Phone: [facility] 04-10-2022 09:44-0400 Systolic blood pressure 146 mm[Hg] Ebony Kaufman DO Work Phone: [facility] 02-27-2022 15:30-0400 Body height 167.64 cm Corona Monroe Other [employer] Other 02-27-2022 15:30-0400 Body mass index (BMI) [Ratio] 31.95 kg/m2 Corona Caseban Other [employer] Other 02-27-2022 15:30-0400 Body temperature 96.9 [degF] Corona Monroe Other [employer] Other 02-27-2022 15:30-0400 Body weight 89.81 kg Corona Monroe Other [employer] Other 02-27-2022 15:30-0400 Diastolic blood pressure 76 mm[Hg] Corona Monroe Other [facility] [facility] Other 02-27-2022 15:30-0400 Respiratory rate 20 /min Corona Caseban Other [employer] Other 02-27-2022 15:30-0400 SaO2% (BldA) [Mass fraction] 97 % Corona Monroe Other [employer] Other 02-27-2022 15:30-0400 Systolic blood pressure 142 mm[Hg] Corona Monroe Other [employer] Other 01-29-2022 12:00-0400 Body height 167.64 cm Cristo Suazo Other [employer] Other 01-29-2022 12:00-0400 Body mass index (BMI) [Ratio] 32.84 kg/m2 Cristo Suazo Other [employer] Other 01-29-2022 12:00-0400 Body weight 92.31 kg Cristo Suazo Other [employer] Other 01-29-2022 12:00-0400 Diastolic blood pressure 78 mm[Hg] Cristo Suazo Other [employer] Other 01-29-2022 12:00-0400 Respiratory rate 18 /min Cristo Suazo Other [employer] Other 01-29-2022 12:00-0400 SaO2% (BldA) [Mass fraction] 98 % Cristo Suazo Other [employer] Other 01-29-2022 12:00-0400 Systolic blood pressure 142 mm[Hg] Cristo Suazo Other [employer] Other 12-26-2021 17:00-0400 Body height 167.64 cm Cristo Suazo Other [facility] [facility] Other 12-26-2021 17:00-0400 Body mass index (BMI) [Ratio] 31.15 kg/m2 Cristo Suazo Other [facility] Other 12-26-2021 17:00-0400 Body weight 87.54 kg Cristo Suazo Other [employer] Other 12-26-2021 17:00-0400 Diastolic blood pressure 79 mm[Hg] Cristo Suazo Other [employer] Other 12-26-2021 17:00-0400 Respiratory rate 18 /min Cristo Suazo Other [employer] Other 12-26-2021 17:00-0400 SaO2% (BldA) [Mass fraction] 95 % Cristo Suazo Other [employer] Other 12-26-2021 17:00-0400 Systolic blood pressure 161 mm[Hg] Cristo Suazo Other [employer] Other 12-22-2021 08:25-0400 Body height 165.1 cm Jessie Bright MD Work Phone: [facility] 12-22-2021 08:25-0400 Body weight 87.68 kg Jessie Bright MD Work Phone: [facility] 12-22-2021 08:25-0400 Diastolic blood pressure 70 mm[Hg] Jessie Bright MD Work Phone: [facility] 12-22-2021 08:25-0400 Heart rate 59 /min Jessie Bright MD Work Phone: [facility] 12-22-2021 08:25-0400 Systolic blood pressure 153 mm[Hg] Jessie Bright MD Work Phone: [facility] 05-23-2021 15:40-0400 Body height 167.64 cm Reuben Triana Other [employer] Other 05-23-2021 15:40-0400 Body mass index (BMI) [Ratio] 30.84 kg/m2 Reuben Triana Other [employer] Other 05-23-2021 15:40-0400 Body temperature 96.3 [degF] Reuben Triana Other [employer] Other 05-23-2021 15:40-0400 Body weight 86.68 kg Reuben Triana Other [employer] Other 05-23-2021 15:40-0400 Diastolic blood pressure 62 mm[Hg] Reuben Triana Other [employer] Other 05-23-2021 15:40-0400 Respiratory rate 18 /min Reuben Triana Other [employer] Other 05-23-2021 15:40-0400 SaO2% (BldA) [Mass fraction] 94 % Reuben Triana Other [employer] Other 05-23-2021 15:40-0400 Systolic blood pressure 140 mm[Hg] Reuben Triana Other [employer] Other Encounters Encounter Date Encounter Type Care Provider Facility Start: 04-15-2025 End: 04-15-2025 ambulatory [facility] Start: 04-08-2025 End: 04-08-2025 ambulatory [facility] Start: 04-05-2025 End: 04-05-2025 Telephone encounter Bill Gant MD Work Phone: [facility] 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 Start: 04-05-2025 End: 04-05-2025 ambulatory BILL GANT [facility] Start: 04-02-2025 End: 04-02-2025 Follow-up encounter Bill Gant MD Work Phone: [facility] Comment on above: Results Start: 04-01-2025 End: 04-01-2025 ambulatory BILL GANT Facility:[facility] Start: 04-01-2025 End: 04-01-2025 Patient encounter procedure Bill Gant MD Work Phone: [facility] Comment on above: Coronary artery dise ase involving [place] coronary artery of [place] heart without angina pectoris (Primary Dx); Hx of CABG; Primary hypertension; Mixed hyperlipidemia; CRI (chronic renal insufficiency), stage 4 (severe) (HCC); PAD (peripheral artery disease); Other emphysema (HCC); Non-rheumatic mitral regurgitation; ROMAN (dyspnea on exertion); MCI (mild cognitive impairment) Start: 04-01-2025 End: 04-01-2025 ambulatory BILL GANT Facility:[facility] Start: 04-01-2025 End: 04-01-2025 Clinisync Result Encounter Generic External Data Provider [facility] External Department Unsolicited Start: 04-01-2025 End: 04-01-2025 Clinisync Result Encounter Generic External Data Provider [facility] External Department Unsolicited Start: 04-01-2025 End: 04-01-2025 ambulatory [facility] Start: 03-11-2025 End: 03-11-2025 Clinisync Result Encounter Generic External Data Provider [facility] External Department Unsolicited Start: 03-11-2025 End: 03-11-2025 Clinisync Result Encounter Generic External Data Provider [facility] External Department Unsolicited Start: 03-10-2025 End: 03-10-2025 Office outpatient visit 25 minutes Darrick Sauer PA-C Work Phone: [facility] Comment on above: Cervical spondylosis (Primary Dx) Start: 03-10-2025 End: 03-10-2025 ambulatory [facility] Start: 03-01-2025 End: 03-01-2025 Bamboo flowsheet Susan Watson DIRECT CARE STAFFER Work Phone: [facility] Start: 03-01-2025 End: 03-01-2025 Bamboo flowsheet Susan Watson DIRECT CARE STAFFER Work Phone: [facility] Start: 03-01-2025 End: 03-01-2025 ambulatory SUSAN WATSON Not Available Start: 03-01-2025 End: 03-01-2025 Office outpatient visit 25 minutes Susan Watson NP Work Phone: [facility] Comment on above: Cervical spondylosis (Primary Dx); Chronic diastolic heart failure (HCC); Primary hypertension ; 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 artery of [place] heart without angina pectoris ; Chronic kidney disease, stage 4 (severe) (HCC); Pulmonary hypertension (HCC); EDITH (generalized anxiety disorder) ; Other hyperlipidemia ; Neck pain; Recurrent major depression in partial remission ; Gastroesophageal reflux disease without esophagitis; Chronic obstructive pulmonary disease, unspecified COPD type (HCC) Start: 02-19-2025 End: 02-19-2025 Clinisync Result Encounter Generic External Data Provider [facility] External Department Unsolicited Start: 02-19-2025 End: 02-19-2025 Clinisync Result Encounter Generic External Data Provider [facility] External Department Unsolicited Start: 02-19-2025 End: 02-19-2025 ambulatory ABIODUN Gaffney [facility] Start: 02-18-2025 End: 02-23-2025 Clinisync Result Encounter Generic External Data Provider [facility] External Department Unsolicited Start: 02-18-2025 End: 02-23-2025 Clinisync Result Encounter Generic External Data Provider [facility] External Department Unsolicited Start: 01-27-2025 End: 01-27-2025 Office outpatient new 45 minutes Darrick Sauer PA-C Work Phone: [facility] Comment on above: Cervical spondylosis (Primary Dx) Start: 01-27-2025 End: 01-27-2025 ambulatory DARRICK SAUER [facility] Start: 01-19-2025 End: 01-19-2025 Patient encounter procedure Formerly [facility], [facility] Physician [facility] Nephrology Adil[facility] Work Phone: Start: 01-19-2025 End: 01-19-2025 Bamboo flowsheet Susan Watson NP Work Phone: [facility] Start: 01-19-2025 End: 01-19-2025 Bamboo flowsheet Susan Watson NP Work Phone: [facility] Start: 01-19-2025 End: 01-19-2025 ambulatory SUSAN WATSON [facility] Work Phone: Start: 01-19-2025 End: 01-19-2025 Office outpatient visit 25 minutes Susan Watson DIRECT CARE STAFFER Work Phone: [facility] Comment on above: Cervical spondylosis (Primary Dx); Neck pain; Primary hypertension (CMS/HCC); Chronic kidney disease, stage 4 (severe) (CMS/HCC); EDITH (generalized anxiety disorder) ([facility]/HCC); H/O: lung cancer; MCI (mild cognitive impairment) Start: 01-14-2025 [facility] Start: 01-12-2025 [facility] Start: 01-11-2025 End: 01-11-2025 ambulatory [facility] Start: 01-07-2025 End: 01-07-2025 Orders Only Susan Watson DIRECT CARE STAFFER Work Phone: [facility] Comment on above: Neck pain (Primary D x) Start: 12-24-2024 End: 12-24-2024 Refill Susan Watson DIRECT CARE STAFFER Work Phone: [facility] Comment on above: Primary hypertension (CMS/HCC); Other hyperlipidemia; Neck pain; Recurrent major 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) (CMS/HCC); 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 artery of [place] heart without angina pectoris (CMS/HCC); Gastroesophageal reflux disease without esophagitis; Chronic obstructive pulmonary disease, unspecified COPD type (CMS/HCC); EDITH (generalized anxiety disorder) (CMS/HCC) Start: 12-07-2024 End: 12-07-2024 Refill Susan Watson DIRECT CARE STAFFER Work Phone: [facility] Comment on above: Other hyperlipidemia ; 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 artery of [place] heart without angina pectoris (CMS/HCC); Primary hypertension (CMS/HCC); Recurrent major 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) ([facility]/HCC); EDITH (generalized anxiety disorder) ([facility]/HCC) Start: 12-01-2024 End: 12-01-2024 Refill Susan Shirley DIRECT CARE STAFFER Work Phone: [facility] Comment on above: EDITH (generalized anx iety disorder) ([facility]/HCC) (Primary Dx) Start: 11-19-2024 End: 11-19-2024 Bamboo flowsheet Susan Watson DIRECT CARE STAFFER Work Phone: [facility] Start: 11-19-2024 End: 11-19-2024 Bamboo flowsheet Susan Watson DIRECT CARE STAFFER Work Phone: [facility] Start: 11-19-2024 End: 11-19-2024 Office outpatient visit 25 minutes Susan Watson DIRECT CARE STAFFER Work Phone: [facility] Comment on above: Neck pain (Primary D x); Primary hypertension ([facility]); Chronic kidney disease, stage 4 (severe) ([facility]); EDITH (generalized anxiety disorder) ([facility]); Functional gait abnormality; MCI (mild cognitive impairment) Start: 11-19-2024 End: 11-19-2024 ambulatory SUSAN SHIRLEY Not Available Start: 11-13-2024 End: 11-13-2024 Refill Susan Shirley DIRECT CARE STAFFER Work Phone: [facility] Comment on above: Primary hypertension ([facility]/HCC); Other hyperlipidemia; Recurrent major 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) ([facility]/HCC); 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 artery of [place] heart without angina pectoris ([facility]/HCC); Gastroesophageal reflux disease without esophagitis; EDITH (generalized anxiety disorder) ([facility]/HCC) Start: 11-12-2024 End: 11-12-2024 Refill Susan Aicvishnuz DIRECT CARE STAFFER Work Phone: [facility] Comment on above: Primary hypertension (CMS/HCC); Other hyperlipidemia; Recurrent major 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) ([facility]/HCC); 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 artery of [place] heart without angina pectoris (CMS/HCC); Gastroesophageal reflux disease without esophagitis; EDITH (generalized anxiety disorder) (CMS/HCC) Start: 11-09-2024 End: 11-09-2024 Refill Susan Watson DIRECT CARE STAFFER Work Phone: [facility] Comment on above: Other hyperlipidemia (CMS/HCC); EDITH (generalized anxiety disorder) (CMS/HCC); Recurrent major 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) (CMS/HCC) Start: 10-27-2024 End: 10-27-2024 ambulatory [facility] Work Phone: Start: 10-27-2024 End: 10-27-2024 Patient encounter procedure Formerly [facility] Physician [facility] Nephrology [facility] Work Phone: Start: 10-20-2024 End: 10-20-2024 ambulatory [facility] Start: 10-13-2024 End: 10-13-2024 ambulatory [facility] Start: 10-12-2024 End: 10-12-2024 ambulatory EBONY BLACK Facility:[facility] Start: 10-12-2024 End: 10-12-2024 Patient encounter procedure Ebony Black DO Work Phone: Neurology Comment on above: Gait abnormality (Pr imary Dx); Memory loss; Neck pain Start: 10-08-2024 End: 10-08-2024 Bamboo flowsheet Susan Watson DIRECT CARE STAFFER Work Phone: [facility] Start: 10-08-2024 End: 10-08-2024 Bamboo flowsheet Susan Watson DIRECT CARE STAFFER Work Phone: [facility] Start: 10-08-2024 End: 10-08-2024 ambulatory SUSAN WATSON Not Available Start: 10-08-2024 End: 10-08-2024 Office outpatient visit 25 minutes Susan Watson DIRECT CARE STAFFER Work Phone: [facility] Comment on above: Primary hypertension (CMS/HCC) (Primary Dx); Chronic obstructive pulmonary disease, unspecified (CMS/HCC); Chronic kidney disease, stage 4 (severe) (CMS/HCC); 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 artery of [place] heart without angina pectoris (CMS/HCC); Gastroesophageal reflux disease without esophagitis; EDITH (generalized anxiety disorder) (CMS/HCC); Recurrent major depressive disorder, in full remission (CMS/HCC); Mixed hyperlipidemia (CMS/HCC); MCI (mild cognitive impairment); Other hyperlipidemia (CMS/HCC); Recurrent major 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) (CMS/HCC); Chronic obstructive pulmonary disease, unspecified COPD type (CMS/HCC) Start: 09-08-2024 End: 09-08-2024 ambulatory MISTY POLO Facility:[facility] Start: 09-08-2024 End: 09-08-2024 Patient encounter procedure Misty Polo PhD Work Phone: Neuropyschology Comment on above: Major neurocognitive disorder (HCC) (Primary Dx); JITENDRA (obstructive sleep apnea); Chronic kidney disease, unspecified CKD stage; Coronary artery disease, unspecified vessel or lesion type, unspecified whether angina present, unspecified whether port [place] or transplanted heart; Complaints of memory disturbance Start: 06-27-2024 End: 06-27-2024 Orders Only Jayy Coronado NP Work Phone: [facility] Comment on above: 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) (CMS/HCC) Start: 06-23-2024 End: 06-23-2024 External Result Encounter Jayy Coronado DIRECT CARE STAFFER Work Phone: [facility] External Department Unsolicited Start: 06-23-2024 End: 06-23-2024 External Result Encounter Jayy Coronado NP Work Phone: [facility] External Department Unsolicited Start: 06-23-2024 End: 06-23-2024 ambulatory JAYY CORONADO [facility] Start: 06-17-2024 End: 06-17-2024 Bamboo flowsheet Jayy Coronado DIRECT CARE STAFFER Work Phone: [facility] Start: 06-17-2024 End: 06-17-2024 Bamboo flowsheet Jayy Coronado DIRECT CARE STAFFER Work Phone: [facility] Start: 06-17-2024 End: 06-17-2024 ambulatory JAYY CORONADO Not Available Start: 06-17-2024 End: 06-17-2024 Office outpatient visit 15 minutes Jayy Coronado DIRECT CARE STAFFER Work Phone: [facility] Comment on above: Primary hypertension (CMS/HCC) (Primary Dx); Other hyperlipidemia (CMS/HCC); 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 artery of port graham heart without angina pectoris (CMS/HCC); Frequent falls; Functional gait abnormality; CKD (chronic kidney disease) stage 4, GFR 15-29 ml/min (CMS/HCC) Start: 06-10-2024 End: 06-10-2024 Bamboo flowsheet Jayy Coronado DIRECT CARE STAFFER Work Phone: [facility] Start: 06-10-2024 End: 06-10-2024 Bamboo flowsheet Jayy Coronado DIRECT CARE STAFFER Work Phone: [facility] Start: 06-10-2024 ambulatory JAYY SHAYZPATRICK No t Available Start: 05-12-2024 ambulatory EBONY KAUFMAN Facility: [facility] Start: 05-12-2024 End: 05-12-2024 Subsequent hospital visit by physician Ct [facility] Radiology Comment on above: Memory loss [R41.3] Start: 05-04-2024 End: 05-04-2024 ambulatory EBONY BLACK Facility:[facility] Start: 05-04-2024 End: 05-04-2024 Patient encounter procedure Ebony Black DO Work Phone: Neurology Comment on above: Memory loss (Primary Dx); Abnormality of gait Start: 03-31-2024 End: 03-31-2024 ambulatory [facility] Work Phone: Start: 03-31-2024 End: 03-31-2024 Patient encounter procedure [facility] Nephrology Adilson Work Phone: Start: 03-28-2024 End: 03-30-2024 Refill Shaikh Cornelio LEMON Work Phone: [facility] Comment on above: Gastroesophageal ref lux disease without esophagitis; Recurrent major 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) ([facility]) Start: 03-11-2024 End: 03-11-2024 ambulatory SHAIKH CORNELIO Not Available Start: 09-19-2023 End: 09-19-2023 Office outpatient visit 25 minutes Shaikh Cornelio LEMON Work Phone: [facility] Comment on above: 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, subsequent encounter (Primary Dx); Recurrent major 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) (CMS/HCC); Other hyperlipidemia ([facility]/HCC); EDITH (generalized anxiety disorder) ([facility]); CKD (chronic kidney disease) stage 4, GFR 15-29 ml/min ([facility]/HCC); Gastroesophageal reflux disease without esophagitis; 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 artery of port [place] heart without angina pectoris ([facility]); Primary hypertension ([facility]); Chronic obstructive pulmonary disease, unspecified COPD type ([facility]) Start: 04-09-2023 End: 04-09-2023 Emergency department patient visit NON STAFF Facility:[facility] Start: 04-09-2023 End: 04-09-2023 ambulatory Lisseth Bakusamas Other [employer] Other Start: 04-09-2023 Telephone encounter Lisseth Bakusamas [facility] Start: 03-13-2023 End: 10-01-2023 ambulatory Carmet Start: 01-25-2023 End: 01-25-2023 ambulatory Aziz Bakhous Other [employer] Other Start: 01-25-2023 Office outpatient vi sit 25 minutes Azryan Harveys [facility] Start: 08-15-2022 End: 08-15-2022 Patient encounter procedure Ebony R Mandeep DO Work Phone: Neurology Comment on above: MCI (mild cognitive impairment) (Primary Dx) Start: 07-27-2022 End: 07-28-2022 ambulatory SHAIKH Randolph GRIMES Facility:[facility] Start: 07-10-2022 End: 07-10-2022 ambulatory Azryan Bakusamas Other [employer] Other Start: 07-10-2022 Office outpatient vi sit 15 minutes Aziz Bakhous [facility] [place] Start: 07-07-2022 End: 07-08-2022 ambulatory AZIZ BAKHOUS Facility:[facility] Start: 07-03-2022 End: 07-03-2022 ambulatory Kamal Chaban Facility:[facility] Start: 06-26-2022 End: 06-26-2022 ambulatory Nadirajin Choi Other [employer] Other Start: 06-26-2022 Telephone encounter Nadira Choi [facility] [place] Start: 06-05-2022 End: 06-05-2022 ambulatory Corona Monroe Other [employer] Other Start: 06-05-2022 Office outpatient vi sit 25 minutes Kamal Mabel [facility] Start: 05-29-2022 End: 05-29-2022 ambulatory Thomas Genesis Other [employer] Other Start: 05-29-2022 Telephone encounter Thomas Genesis [facility] Start: 05-01-2022 Telephone encounter Elsa garcia [facility] 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 (In 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 to 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 placed in [facility]) Start: 04-11-2022 End: 04-11-2022 Patient encounter procedure MD Corona Monroe Work Phone: [facility] Start: 04-10-2022 End: 04-10-2022 Patient encounter procedure Ebony Kaufman DO Work Phone: Neurology Comment on above: 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) (Primary Dx); MCI (mild cognitive impairment) Start: 03-13-2022 End: 03-13-2022 ambulatory Thomas Burgosa Other [employer] Other Start: 03-13-2022 Telephone encounter Thomas Genesis [facility] Start: 03-05-2022 End: 03-05-2022 ambulatory Thomas Genesis Other [employer] Other Start: 03-05-2022 Telephone encounter Thomas Genesis [facility] Start: 02-28-2022 End: 02-28-2022 ambulatory Corona Caseban Other [employer] Other Start: 02-28-2022 Telephone encounter Corona Casesoila [facility] Start: 02-27-2022 End: 02-27-2022 ambulatory Kamal Chaban Other [employer] Other Start: 02-27-2022 Office outpatient ne w 45 minutes Corona Monroe [facility] Start: 02-21-2022 Telephone encounter Cristo Bender [facility] [place] Start: 02-21-2022 End: 02-22-2022 ambulatory SHAIKH Randolph GRIMES [employer] Other Start: 02-09-2022 End: 02-09-2022 ambulatory Pulm [facility] 11 Other Phone: Pulmonary Medicine Comment on above: Spirometry Question regarding M RI BRAIN WO IVCON Start: 02-09-2022 End: 02-09-2022 Patient encounter procedure [facility]m [facility] Other Phone: [facility] Start: 02-08-2022 End: 02-08-2022 Orders Only Driss Nur MD Work Phone: [facility] Comment on above: Cognitive impairment , mild, so stated (Primary Dx) Shortness of breath (Primary Dx) Cognitive impairment , mild, so stated [G31.84] Start: 02-08-2022 Telephone encounter Thomas Genesis [facility] Start: 01-29-2022 End: 01-29-2022 ambulatory Cristo Suazo Other [employer] Other Start: 01-29-2022 Office outpatient vi sit 15 minutes Cristo Suazo [facility] [place] Start: 01-05-2022 End: 01-05-2022 ambulatory Cristo Suazo Other [employer] Other Start: 01-05-2022 Telephone encounter Cristo Bender [facility] [place] Start: 01-01-2022 End: 01-01-2022 ambulatory Cristo Suazo Other [employer] Other Start: 01-01-2022 Telephone encounter Cristo Bender [facility] [place] Start: 12-26-2021 End: 12-26-2021 ambulatory Cristo Suazo Other [employer] Other Start: 12-26-2021 Office outpatient vi sit 25 minutes Cristo Suazo [facility] [place] Start: 12-22-2021 End: 12-22-2021 Patient encounter procedure Jessie Bright MD Work Phone: Neurology Comment on above: 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); Cognitive impairment, mild, so stated; Depression, unspecified depression type Start: 12-18-2021 End: 12-18-2021 ambulatory Thomas Genesis Other [employer] Other Start: 12-18-2021 Telephone encounter Thomas Genesis [facility] Start: 12-06-2021 End: 12-06-2021 ambulatory Thomas Genesis Other [employer] Other Start: 12-06-2021 Telephone encounter Thomas Burgosa [facility] Start: 12-04-2021 End: 12-04-2021 ambulatory Cristo Suazo Other [employer] Other Start: 12-04-2021 Telephone encounter Cristo Bender [facility] [place] Start: 09-13-2021 End: 09-13-2021 ambulatory Thomas Genesis Other [employer] Other Start: 09-13-2021 Telephone encounter Thomas Genesis [facility] Start: 08-16-2021 End: 08-16-2021 ambulatory Cristo Suazo Other [employer] Other Start: 08-16-2021 Telephone encounter Cristo Bender [facility] [place] Start: 05-30-2021 Telephone encounter Cristo Bender [facility] [place] Start: 05-23-2021 Office outpatient vi sit 25 minutes Reuben Triana [facility] [place] Start: 05-23-2021 Telephone encounter Susannah salazar [facility] [place] Start: 04-03-2018 End: 04-04-[address] [facility] Start: 03-28-2018 End: 03-29-2018 Patient encounter [facility] Facility:[facility] Procedures Date Procedure Procedure Detail Performing Clinician Start: 04-01-2025 [facility] NT-PROBNP [facility] Generic External Data Provider Start: 04-01-2025 Ecg routine ecg w/le ast 12 lds w/i&r Bill Gant MD Work Phone: Start: 03-11-2025 [facility] CREATININE Generic External Data Provider Start: 02-19-2025 CA ECHO DOPPLER COMPLETE Generic External Data Provider Start: 02-18-2025 SEGMENTAL BLOOD PRESSURE Generic External Data Provider Start: 10-20-2024 Lipid 1996 panel - S aram or Plasma Bill Gant MD Work Phone: Start: 06-23-2024 Lipid panel Jayy carranza NP Work Phone: Start: 06-23-2024 Lipid 1996 panel [...] Colonoscopy Shaikh Shadia silva MD Work Phone: History of coronary artery bypass grafting Hx of CABG Bill Gant MD Work Phone: History of coronary artery bypass grafting Hx of CABG Bill Gant MD Work Phone: Plan of Treatment Date Care Activity Detail Author Start: 06-21-2031 Screening for malign ant neoplasm of colon [facility] Start: 10-20-2029 Lipid panel Lipid Screening [facility] Start: 06-23-2029 Lipid panel Lipid Screening [facility] Start: 2028 RSV Vaccine (1 - 1-d ose 75+ series) RSV Vaccine (1 - 1-dose 75+ series) [facility] Start: 03-10-2026 Adult BMI Screening Adult BMI Screen ing [facility] Start: 03-10-2026 Tobacco Screening Tobacco Screening [facility] Start: 01-27-2026 Adult BMI Screening Adult BMI Screen ing [facility] Start: 01-27-2026 Tobacco Screening Tobacco Screening [facility] Start: 01-12-2026 Creatinine measurement Serum Creatin ine [facility] Start: 05-31-2025 End: 05-31-2025 Patient encounter procedure 05/31/2025 1:20 PM EDT Office Visit [facility] [address] [place] [address] Susan Watson NP [address] [place] [address] [facility] Start: 05-02-2025 End: 05-01-2026 NM Heart Perfusion W stress and W radionuclide IV NM CARDIAC PERF STRESS/PHARM Radiology Routine 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 artery of port [place] heart without angina pectoris Hx of CABG Other emphysema (HCC) ROMAN (dyspnea on exertion) Expected: 05/02/2025 (Approximate), Expires: 05/01/2026 [facility] Work Phone: Comment on above: Expected: 05/02/2025 (Approximate), Expires: 05/01/2026 Start: 04-16-2025 End: 07-16-2025 Basic metabolic 2000 panel - Serum or Plasma BASIC METABOLIC PANEL Lab Routine Chronic heart failure with preserved ejection fraction (HCC) Expected: 04/16/2025 (Approximate), Expires: 07/16/2025 [facility] Work Phone: Comment on above: Expected: 04/16/2025 (Approximate), Expires: 07/16/2025 Start: 04-16-2025 End: 04-16-2025 Patient encounter procedure 04/16/2025 11:00 AM EDT Office Visit Neurology [address] [place] [address] Ebony Trent, DO [address] [place] [address] 6 month follow up Neurology Comment on above: 6 month follow up Start: 04-15-2025 End: 05-01-2026 LUNG DIFFUSION CAPACITY (DLCO) LUNG DIFFUSION CAPACITY (DLCO) PFT Routine Other emphysema (HCC) Expected: 04/15/2025 (Approximate), Expires: 05/01/2026 [facility] Comment on above: Expected: 04/15/2025 (Approximate), Expires: 05/01/2026 Start: 04-15-2025 End: 05-01-2026 LUNG VOLUMES LUNG VOLUMES PFT Routine Other emphysema (HCC) Expected: 04/15/2025, Expires: 05/01/2026 [facility] Comment on above: Expected: 04/15/2025 , Expires: 05/01/2026 Start: 04-15-2025 End: 05-01-2026 SPIROMETRY BASELINE ONLY SPIROMETRY BASELINE ONLY PFT Routine Other emphysema (HCC) Expected: 04/15/2025 (Approximate), Expires: 05/01/2026 [facility] Comment on above: Expected: 04/15/2025 (Approximate), Expires: 05/01/2026 Start: 04-15-2025 End: 05-01-2026 XR Chest PA and Lateral XR CHEST 2V FRONTAL/LAT Radiology Routine Other emphysema (HCC) Expected: 04/15/2025 (Approximate), Expires: 05/01/2026 [facility] Comment on above: Expected: 04/15/2025 (Approximate), Expires: 05/01/2026 Start: 04-12-2025 Influenza vaccination [facility] Start: 03-10-2025 End: 03-10-2026 MR Cervical spine WO contrast MR cervical spine without contrast Imaging Routine Cervical spondylosis Expected: 03/10/2025, Expires: 03/10/2026 [facility] Work Phone: Comment on above: Expected: 03/10/2025 , Expires: 03/10/2026 Start: 03-10-2025 End: 03-10-2025 Patient encounter procedure 03/10/2025 9:45 AM EDT Office Visit [facility] [address] [place] [phone] Darrick Sauer PAKeaganC [address] [place] [address] [facility] Start: 03-01-2025 End: 03-01-2025 Patient encounter procedure 03/01/2025 1:40 PM EDT Office Visit [facility] [address] [place] [phone] Susan Watson NP [address] [place] [phone] [facility] Start: 02-19-2025 End: 02-19-2025 Admission to same day surgery center 02/19/2025 2:58 PM EDT - 02/19/2025 3:07 PM EDT Surgery [facility] [address] [place] [phone] Abiodun Cherry MD [address] [place], [place] [id number] INJECTION FACET JOINT Bilateral C 5/6,6/7 [71777 (CPT )] [facility] Comment on above: INJECTION FACET JOIN T Bilateral C 5/6,6/7 [86034 (CPT )] Start: 02-19-2025 End: 02-19-2025 Njx dx/ther agt pvrt facet jt crv/thrc 1 level INJECTION FACET JOINT Cervical spondylosis 02/19/2025 2:58 PM EDT [facility] Start: 02-19-2025 Subsequent hospital visit by physician 02/19/2025 2:58 PM EDT Hospital Encounter [facility] [address] [place] [phone] Abiodun Cherry MD [address] [place], [place] [phone] [facility] Start: 01-19-2025 End: 01-19-2025 Patient encounter procedure 01/19/2025 1:00 PM EDT Office Visit [facility] [address] [place] [phone] Susan Watson NP [address] [place] [phone] [facility] Start: 01-07-2025 End: 01-07-2026 XR Cervical spine 2 or 3 Views XR cervical spine 2 or 3 views Imaging Routine Neck pain Expected: 01/07/2025 (Approximate), Expires: 01/07/2026 [facility] Work Phone: Comment on above: Expected: 01/07/2025 (Approximate), Expires: 01/07/2026 Start: 11-19-2024 End: 11-19-2024 Patient encounter procedure [facility] Comment on above: Chronic obstructive pulmonary disease, unspecified COPD type (CMS/HCC) (Primary Dx); 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 artery of [place] heart without angina pectoris (CMS/HCC); Atherosclerosis of arteries of extremities (CMS/HCC); Primary hypertension (CMS/HCC); Gastroesophageal reflux disease without esophagitis; Chronic kidney disease, stage 4 (severe) (CMS/HCC); EDITH (generalized anxiety disorder) (CMS/HCC) Start: 09-16-2024 End: 09-16-2024 Patient encounter procedure 09/16/2024 1:00 PM EST Office Visit [facility] [address] [place] [phone] Jayy Coronado NP [address] [place] [address] [facility] Start: 08-12-2024 Advance Directive Discussion Advance Directive Discussion [facility] Start: 08-12-2024 Medicare Advantage Annual Wellness Visit Medicare Advantage Annual Wellness Visit [facility] Start: 06-30-2024 End: 06-30-2024 ambulatory 06/30/2024 11:30 AM EST Evaluation [facility] [address] [place] [phone] Babak Aquino, PT [address] [place], [place] [phone] [facility] Start: 06-17-2024 End: 06-17-2025 Lipid 1996 panel - Serum or Plasma Lipid panel Lab Routine Primary hypertension (CMS/HCC) Expected: 06/17/2024 (Approximate), Expires: 06/17/2025 [facility] Comment on above: Expected: 06/17/2024 (Approximate), Expires: 06/17/2025 Start: 06-10-2024 End: 06-10-2024 [facility] Comment on above: Arrived Start: 05-19-2024 Diabetes Screening Diabetes Screenin g [facility] Start: 05-12-2024 End: 05-12-2024 Patient encounter procedure 05/12/2024 7:45 AM EDT Appointment Radiology [address] [place] [address] ct wo contrast Radiology Comment on above: ct wo contrast Start: 04-12-2024 Covid-19 Vaccine ( season) Covid-19 Vaccine () [facility] Start: 04-12-2024 Influenza vaccination Influenza Vacc ine (#1) [facility] Start: 12-24-2023 End: 12-24-2023 Patient encounter procedure 12/24/2023 1:15 PM EDT Office Visit [facility] [address] [place] [address] Shaikh Grimes MD [address] [place] [address] [facility] Start: 09-19-2023 End: 09-19-2024 CBC W Auto Differential panel - Blood CBC and differential Lab Routine Recurrent major 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) (CMS/HCC) CKD (chronic kidney disease) stage 4, GFR 15-29 ml/min (CMS/HCC) 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 artery of port [place] heart without angina pectoris (CMS/HCC) Primary hypertension (CMS/HCC) Expected: 09/19/2023 (Approximate), Expires: 09/19/2024 [facility] Work Phone: Comment on above: Expected: 09/19/2023 (Approximate), Expires: 09/19/2024 Start: 09-19-2023 End: 09-19-2024 Comprehensive metabolic 2000 panel - Serum or Plasma Comprehensive metabolic panel Lab Routine Recurrent major 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) ([facility]) CKD (chronic kidney disease) stage 4, GFR 15-29 ml/min ([facility]) 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 artery of [place] heart without angina pectoris ([facility]) Primary hypertension ([facility]) Expected: 09/19/2023 (Approximate), Expires: 09/19/2024 [facility] Comment on above: Expected: 09/19/2023 (Approximate), Expires: 09/19/2024 Start: 09-19-2023 End: 09-19-2024 Creatinine [Mass/volume] in Urine Creatinine, urine, random Lab Routine CKD (chronic kidney disease) stage 4, GFR 15-29 ml/min ([facility]/HCC) Expected: 09/19/2023 (Approximate), Expires: 09/19/2024 [facility] Comment on above: Expected: 09/19/2023 (Approximate), Expires: 09/19/2024 Start: 09-19-2023 End: 09-19-2024 Lipid 1996 panel - Serum or Plasma Lipid panel Lab Routine Other hyperlipidemia ([facility]) Expected: 09/19/2023 (Approximate), Expires: 09/19/2024 [facility] Comment on above: Expected: 09/19/2023 (Approximate), Expires: 09/19/2024 Start: 09-19-2023 End: 09-19-2024 Protein, urine, random Protein, urine, random Lab Routine CKD (chronic kidney disease) stage 4, GFR 15-29 ml/min ([facility]/HCC) Expected: 09/19/2023 (Approximate), Expires: 09/19/2024 [facility] Comment on above: Expected: 09/19/2023 (Approximate), Expires: 09/19/2024 Start: 08-12-2023 Advance Directive Discussion Advance Directive Discussion [facility] Start: 04-12-2023 Influenza vaccination Influenza Vacc ine (#1) [facility] Start: 12-22-2022 Adult depression screening assessment DEPRESSION SCREENING [facility] Start: 08-12-2022 ADVANCE DIRECTIVE DISCUSSION ADVANCE DIRECTIVE DISCUSSION [facility] Start: 04-12-2022 Influenza vaccination INFLUENZA (#1) [facility] Start: 02-09-2022 End: 03-10-2023 SPIROMETRY WITH DILATOR IF OBSTRUCTED [facility] Work Phone: Comment on above: Expected: 02/09/2022 , Expires: 03/10/2023 Start: 12-22-2021 End: 02-21-2022 SYPHILIS TOTAL W/REFLEX SYPHILIS TOTAL W/REFLEX Lab Routine Cognitive impairment, mild, so stated 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) Depression, unspecified depression type Expected: 12/22/2021, Expires: 02/21/2022 [facility] Work Phone: Comment on above: Expected: 12/22/2021 , Expires: 02/21/2022 Start: 12-22-2021 End: 02-21-2022 Thyrotropin [Units/volume] in Serum or Plasma TSH BLD Lab Routine Cognitive impairment, mild, so stated 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) Depression, unspecified depression type Expected: 12/22/2021, Expires: 02/21/2022 [facility] Work Phone: Comment on above: Expected: 12/22/2021 , Expires: 02/21/2022 Start: 12-22-2021 End: 02-21-2022 VITAMIN B12 BLOOD VITAMIN B12 BLOOD Lab Routine Cognitive impairment, mild, so stated 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) Depression, unspecified depression type Expected: 12/22/2021, Expires: 02/21/2022 [facility] Work Phone: Comment on above: Expected: 12/22/2021 , Expires: 02/21/2022 Start: 12-05-2021 COVID-19 VACCINE (4 - Booster for Pfizer series) COVID-19 VACCINE (4 - Booster for Pfizer series) [facility] Start: 10-01-2021 COVID-19 VACCINE (4 - Booster for Pfizer series) COVID-19 VACCINE (4 - Booster for Pfizer series) [facility] Start: 08-12-2021 ADVANCE DIRECTIVE DISCUSSION ADVANCE DIRECTIVE DISCUSSION [facility] Start: 2018 Fall Risk Screening Fall Risk Screen ing [facility] Start: 2018 PNEUMOCOCCAL: 65+ (1 - PCV) PNEUMOCOCCAL: 65+ (1 - PCV) [facility] Start: 2018 PNEUMOVAX AGE 65 AND OVER WITH 5YR LOOKBACK (#1) PNEUMOVAX AGE 65 AND OVER WITH 5YR LOOKBACK (#1) [facility] Start: 2013 RSV Vaccine (1 - Ris k 60-74 years 1-dose series) RSV Vaccine (1 - Risk 60-74 years 1-dose series) [facility] Start: 2008 PROSTATE CANCER SCREENING DISCUSSION PROSTATE CANCER SCREENING DISCUSSION [facility] Start: 2003 Administration of varicella zoster vaccine Zoster (Shingles) Vaccine (1 of 2) [facility] Start: 2003 SHINGRIX VACCINE (1 of 2) SHINGRIX VACCINE (1 of 2) [facility] Start: 1998 COLOGUARD (FIT-DNA) COLOGUARD (FIT-D NA) [facility] Start: 1998 Colonoscopy COLONOSCOPY [facility] Start: 1998 COLORECTAL CANCER SCREENING COLORECTAL CANCER SCREENING [facility] Start: [address] COLONOGRAPHY [facility] Start: 1998 DIABETES SCREEN DIABETES SCREEN [facility] Start: 1998 FECAL OCCULT BLOOD FECAL OCCULT BLOO D [facility] Start: 1998 Screening for malign ant neoplasm of colon [facility] Start: 1998 SIGMOIDOSCOPY SIGMOIDOSCOPY [facility] Start: 1988 Lipid panel Lipid Screening [facility] Start: 1988 LIPID SCREEN LIPID SCREEN [facility] Start: 1972 DTaP,Tdap and Td Vaccines (1 - Tdap) DTaP,Tdap and Td Vaccines (1 - Tdap) [facility] Start: 1972 Urine microalbumin profile [facility] Start: 1971 Adult BMI Follow Up Plan Adult BMI F ollow Up Plan [facility] Start: 1971 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 Annual PCP Team Chronic Disease Visit [facility] Start: 1971 Anxiety Screening Anxiety Screening [facility] Start: 1971 Hepatitis B surface antibody level LDL Cholesterol [facility] Start: 1971 HEPATITIS C SCREENING HEPATITIS C [facility] Start: 1971 Hepatitis C screening Hepatitis C [facility] Start: 1965 Depression Screening Depression Scre [facility]ing [facility] Start: 1953 Medicare Annual Well ness (AWV) Medicare Annual Wellness (AWV) [facility] Start: 1953 Screening for malign ant neoplasm of colon [facility] Start: 1953 Tobacco Counseling Tobacco Counselin g [facility] CBC W Auto Different ial panel - Blood CBC and differential Lab Routine Primary hypertension (CMS/HCC) Ordered: 06/17/2024 [facility] Work Phone: Comment on above: Ordered: 06/17/2024 Comprehensive metabo lic 2000 panel - Serum or Plasma Comprehensive metabolic panel Lab Routine Primary hypertension (CMS/HCC) Ordered: 06/17/2024 [facility] Comment on above: Ordered: 06/17/2024 End: 06-03-2025 CT Head WO contrast CT BRAIN WO IVCON Radiology Routine Memory loss 1 Occurrences starting 05/04/2024 until 06/03/2025 [facility] Work Phone: Comment on above: 1 Occurrences starti ng 05/04/2024 until 06/03/2025 End: 01-21-2023 Mri brain brain stem w/o contrast material MRI BRAIN WO IVCON Radiology Routine Cognitive impairment, mild, so stated 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) Depression, unspecified depression type 1 Occurrences starting 12/22/2021 until 01/21/2023 [facility] Work Phone: Comment on above: 1 Occurrences starti ng 12/22/2021 until 01/21/2023 Renal function 2000 panel - Serum or Plasma [facility] Renal function 2000 panel - Serum or Plasma [facility] Renal function 2000 panel - Serum or Plasma [facility] Immunizations Immunization Date Immunization Notes Care Provider Fa cility 08-06-2021 COVID-19 Vaccine Pfi zer - Documentation Purposes Only Corona Monroe Other [facility] [employer] Other 05-23-2021 influenza, high dose seasonal, preservative-free Susannah Geri Other [facility] Other 05-23-2021 Influenza, High-dose Seasonal, Quadrivalent, Preservative Free Shaikh Cornelio LEMON Work Phone: [facility] 05-23-2021 influenza virus vaccine, unspecified formulation Shaikh Cornelio LEMON Work Phone: [facility] 11-08-2020 COVID-19 Pfizer Susannah montano Other [employer] Other 10-19-2020 COVID-19 Vaccine Pfi zer - Documentation Purposes Only Susannah Nevarez Other [employer] [facility] Other 08-03-2020 influenza, high dose seasonal, preservative-free Susannah Juhannah Other [facility] Other 08-03-2020 pneumococcal polysaccharide vaccine, 23 valent Susannah Geri Other [employer] Other 08-03-2020 influenza virus vaccine, unspecified formulation [facility] 08-03-2020 Influenza, High-dose Seasonal, Quadrivalent, Preservative Free Shaikh Cornelio LEMON Work Phone: [facility] 08-27-2019 pneumococcal conjuga te vaccine, 13 valent Susannah Juhannah Other [facility] [employer] Other Payers Date Payer Category Payer Medicare (Managed Care) 1.2. [id number] 2024 Medicare O [employer] EDICARE [id number] 2024 Unknown [id number] 2023 Medicaid [employer] MEDICARE A DVANTAGE [id number] 2022 [facility] er [id number]. [id number] 2022 Self-pay [id number] 2020 Unknown ELIJAH PAREDES PPO [id number] 2020-Present [phone] [address] [place] [address] PPO [id number] 2018 Unknown 2015 Medicare MEDICARE MEDICAR E A AND B [id number] 2015-Present [phone] [place] [address] Medicare [id number] 2015 Medicare [id number] [id number]. [id number] 1953 Unknown [id number] 2.16.840.1.779783.3.579.2. 593 1953 Unknown [id number] 2.16.840.1.618078.3.579.2. 593 1953 Unknown [id number] 2.16.840.1.750803.3.579.2. 593 1953 Unknown [id number] 2.16.840.1.801929.3.579.2. 1259 1953 Unknown [id number] 2.16.840.1.799422.3.579.2. 1259 1953 Unknown [id number] 2.16.840.1.193719.3.579.2. 1259 1953 Unknown [id number] 2.16.840.1.306838.3.579.2. 1259 1953 Unknown [id number] 2.16.840.1.769392.3.579.2. 1259 1953 Unknown [id number] 2.16.840.1.467158.3.579.2. 9 1953 Unknown [id number] 2.16.840.1.651521.3.579.2. 1259 1953 Unknown [id number] 2.16.840.1.922723.3.579.2. 1286 1953 Unknown [id number] 2.16.840.1.803142.3.579.2. 1285 1953 Unknown [id number] 2.16.840.1.740880.3.579.2. 1285 1953 Unknown [id number] 2.16.840.1.925371.3.579.2. 1285 1953 Unknown [id number] 2.16.840.1.841549.3.579.2. 128 1953 Unknown [id number] 2.16.840.1.195091.3.579.2. 1285 1953 Unknown [id number] 2.16.840.1.580324.3.579.2. 1285 1953 Unknown [id number] 2.16.840.1.169352.3.579.2. 1285 1953 Unknown [id number] 2.16.840.1.605636.3.579.2. 128 1953 Unknown [id number] 2.16.840.1.826698.3.579.2. 1285 1953 Unknown [id number] 2.16.840.1.489934.3.579.2. 1286 Blue Cross Blue Shield [id number] 2.16.840.1.835245.19 Medicare [id number] 2.16.840.1.978094.19 Private Health Insurance [id number] Unknown [employer] [id number] Unknown [id number] 2.16.840.1.855805.3.579.2. 531 Unknown [id number] 2.16.840.1.971981.3.579.2. 531 Social History Date Type Detail Facility Start: 12-22-2021 End: 08-15-2022 Tobacco smoking status WYIS Never smoked tobacco [facility] Start: 12-22-2021 End: 01-27-2025 Tobacco use and exposure User of smokeless tobacco [facility] End: 07-14-2022 History of tobacco use Chews Tobacco [facility] Start: 1955 Sex Assigned At Not on file [facility] Start: 12-12-2021 End: 04-10-2022 Exposure to SARS-CoV-2 (event) Not sure [facility] Start: 05-16-2023 End: 07-22-2023 Sex Assigned At [facility] Start: 09-30-2020 End: 03-11-2024 Tobacco smoking status WYIS Ex-smoker (finding) [facility] Start: 1955 Sex Assigned At Male [facility] Start: 08-15-2022 Tobacco use and exposure Former smokeless tobacco user [facility] History of tobacco use Current smoker [facility] History of tobacco use Cigarette Smoker [facility] Start: 07-12-2023 End: 03-11-2024 Tobacco use and exposure Smokeless tobacco non-user [facility] Start: 09-19-2023 End: 03-01-2025 Alcohol intake Lifetime non-drinker (finding) [facility] Start: 05-16-2023 End: 07-22-2023 History of Social function [facility] Within the last year , have you been afraid of your partner or ex-partner? No [facility] Are you now , , , , never or living with a partner? [facility] How often to you hav e a drink containing alcohol? Never [facility] Start: 12-05-2021 How many standard drinks containing alcohol do [...] [OSQ] Very much [facility] (I/We) worried whether (my/our) food would run out before (I/we) got money to buy more. Never true [facility] Start: 07-12-2023 Alcohol Comment caffeine: 1-2 cups per day [facility] Start: 10-02-2019 End: 10-27-2024 Sex Male (finding) [facility] How often do you nee d to have someone help you when you read instructions, pamphlets, or other written material from your doctor or pharmacy [SILS] Sometimes [facility] Are you now , , , , never or living with a partner? [facility] How hard is it for you to pay for the very basics like food, housing, medical care, and heating Not very hard [facility] Do you feel stress - tense, restless, nervous, or anxious, or unable to sleep at night because your mind is troubled all the time - these days [OSQ] To some extent [facility] Start: 04-01-2025 Alcoholic beverage intake Ex-drinker (finding) [facility] NEGATED: Highlighted rowStart: VIVIENNE History of tobacco use Passive smoker [facility] Medical Equipment Procedure Code Equipment Code Equipment Origin al Text Equipment Identifier Dates Repair, hernia, umbilical Abdominal hernia surgical mesh, composite-polymer [id number] Start: 09-30-2020 Goals Date Patient Goal Desired Activity /State Personal health goal Clinical Notes 05-23-2021 to 04-05-2025 Telephone Encounter - Mariana Wheeler LPN - 04/05/2025 4:02 PM EDTTelephone Encounter - Mariana Wheeler LPN - 04/05/2025 4:02 PM EDTAddendum Note - Bill Gant MD - 04/02/2025 8:18 AM EDT Note Date & Type Note Facility 04-05-2025 Telephone encounter Note Chest x-ray results received from [facility]. Scanned in for review. Mariana Wheeler LPN [facility] 04-05-2025 Miscellaneous Notes Chest x-ray results received from [facility]. Scanned in for review. Mariana Wheeler LPN documented in this encounter [facility] 04-02-2025 Telephone encounter Note I spoke to Nini and informed them of 's response and recommendations. She voiced understanding and will call back with fax number for lab of choice. Brianne Butt LPN [facility] 04-02-2025 Miscellaneous Notes I spoke to Nini and informed them of 's response and recommendations. She voiced understanding and will call back with fax number for lab of choice. Brianne Butt LPN Addended by: BILL GANT on: 04/02/2025 08:18 AM Modules accepted: Orders If the Jardiance is too expensive just have them cancel that particular prescription. I will order a BMP for about 2 weeks that can be done in [facility] I spoke to Nini and informed them of 's response to lab results and recommendations. She voiced understanding and wants to go ahead and start both medications. [facility] in [place] on file is pharmacy of choice. Brianne Butt LPN ----- Message from Bill Gant MD sent at 04/02/2025 7:58 AM EDT ----- Patient's BNP is quite high at 4800 suggesting he is having a fair amount of heart failure. This would be contributing to his shortness of breath. Might be worth trying a small dose of Lasix 20 mg every morning as well as Jardiance 10 mg daily. The Jardiance is not generic so uncertain what the cost would be but it is indicated to use in diastolic heart failure. It also increases risk of genitourinary infection. Having said that it is strongly recommended. If patient prefers to wait until he has all of his testing done as well as his upcoming angiogram that is absolutely fine and he can think about it and let us know in the next month or so. If he just wants to start the diuretic and not Jardiance we can do that and he would need a BMP repeated in a couple of weeks thanks Charanjit Contreras ----- Message ----- From: Lab, Background User Sent: 04/01/2025 5:02 PM EDT To: Bill Gant MD documented in this encounter [facility] 04-02-2025 Note Addended by: BILL GANT on: 04/02/2025 08:18 AM Modules accepted: Orders [facility] 04-02-2025 Telephone encounter Note If the Jardiance is too expensive just have them cancel that particular prescription. I will order a BMP for about 2 weeks that can be done in [facility] 04-02-2025 Telephone encounter Note I spoke to Nini and informed them of 's response to lab results and recommendations. She voiced understanding and wants to go ahead and start both medications. [facility] in [place] on file is pharmacy of choice. Brianne Butt LPN [facility] 04-02-2025 Telephone encounter Note ----- Message from Bill Gant MD sent at 04/02/2025 7:58 AM EDT ----- Patient's BNP is quite high at 4800 suggesting he is having a fair amount of heart failure. This would be contributing to his shortness of breath. Might be worth trying a small dose of Lasix 20 mg every morning as well as Jardiance 10 mg daily. The Jardiance is not generic so uncertain what the cost would be but it is indicated to use in diastolic heart failure. It also increases risk of genitourinary infection. Having said that it is strongly recommended. If patient prefers to wait until he has all of his testing done as well as his upcoming angiogram that is absolutely fine and he can think about it and let us know in the next month or so. If he just wants to start the diuretic and not Jardiance we can do that and he would need a BMP repeated in a couple of weeks thanks Charanjit Contreras ----- Message ----- From: Lab, Background User Sent: 04/01/2025 5:02 PM EDT To: Bill Gant MD [facility] 04-01-2025 Instructions iBll Gant MD - 04/01/2025 3:01 PM EDT Have blood work done today: BNP downstairs to assess for heart failure, we will call you with results I ordered a chest x-ray, pulmonary function test, and a chemical nuclear stress test to be done in the next 2 to 8 weeks: I will ask your family doctor to try to get these done locally where you live and to send results to us so I can review them and get back with you. Please ask your certified detention deputy to send results of the peripheral artery imaging that is planned to look at your legs in the next few weeks. documented in this encounter [facility] 04-01-2025 History of Present illness Narrative Chief Complaint No chief complaint on file. History of Present Illness: Samir Castillo is a 69-year-old male with a history of CAD, status post-CABG, HTN, HLD, COPD, PAD, stage 4 CKD, and mild cognitive impairment, presenting for a new patient visit. He lives in [place] and gets most of his care in [place] at [facility] but just wants a second opinion on overall management. He underwent a heart catheterization 11 years ago, revealing a chronically occluded RCA that could not be opened, a patent SPRAGUE to the LAD, a patent radial graft to the obtuse marginal artery, and an occluded saphenous vein graft to the PDA. His LVEF was 50-55% at that time. A recent echocardiogram in February showed an LVEF of 55%, grade 3 diastolic dysfunction, mild to moderate pulmonary hypertension, and moderate mitral regurgitation. He has not had a stress test in the past few years. He denies experiencing angina, chest pain, palpitations, syncope, or severe dizziness. He reports dyspnea on exertion, particularly when walking short distances or climbing stairs. He denies any history of stroke, DVT, or PE. He has not had any recent chest X-rays or CT scans. He reports significant leg weakness and pain, particularly in the ankles and calves, leading to frequent falls. He denies any tingling sensations. He has not seen a neurologist or vascular surgeon for these symptoms. He uses furniture for support when walking at home and is currently in a wheelchair. He has a scheduled procedure next week to evaluate his leg arteries. He has a history of lung cancer with partial lobectomy performed 30 years ago. He denies any current use of supplemental oxygen. 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 He denies any history of diabetes, liver disease, or excessive alcohol use. He denies any internal bleeding or significant bruising. He denies any use of NSAIDs such as Advil or Aleve. He has a history of mild cognitive impairment and is no longer driving. He relies on his family for transportation. 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 He quit smoking 40 years ago. He is currently taking aspirin and Plavix. Recent lab results include a creatinine of 1.9 mg/dL and potassium of 4.3 mmol/L in January, and HDL of 42 mg/dL and LDL of 52 mg/dL in October. No past medical history on file. No past surgical history on file. No family history on file. SOCIAL HISTORY[1] ALLERGIES No Known Allergies Medications: Current Outpatient Medications Medication Sig Dispense Refill traZODone (DESYREL) 100 mg tablet Take 100 [...] SL tablet nitroglycerin 0.4 mg sublingual tablet sertraline (ZOLOFT) 100 mg tablet sertraline 100 mg tablet TAKE 1 AND 1/2 TABLETS BY MOUTH EVERY DAY omega 0-hxc-sus-fish oil (FISH OIL) 100-160-1,000 mg cap Take by mouth. No current facility-administered medications for this visit. ROS Physical Examination: Vitals: BP 123/58 (BP Site: Left Arm, BP Position: Sitting, BP Cuff Size: Regular Adult) Pulse (!) 59 Ht 5' 6 (1.676 m) Wt 165 lb (74.8 kg) SpO2 99% BMI 26.63 kg/m Last 2 Encounter Wt Readings: Date: Wt: 10/12/2024 169 lb 15.6 oz (77.1 kg) 05/04/2024 177 lb 7.5 oz (80.5 kg) Physical Exam Vitals reviewed. Constitutional: Comments: Patient sitting in wheelchair elderly chronically ill-appearing very pleasant and answers most questions pretty accurately no resting tachypnea HENT: Head: Normocephalic. Eyes: Comments: Eyelids appear normal Neck: Thyroid: No thyromegaly. Vascular: No carotid bruit or JVD. Cardiovascular: Rate and Rhythm: Regular rhythm. Pulses: Carotid pulses are 2+ on the right side and 2+ on the left side. Radial pulses are 2+ on the right side. Heart sounds: Heart sounds are distant. No murmur heard. No friction rub. No gallop. Comments: Status post left radial harvest Diminished distal pulses in both feet chronic skin changes consistent with PAD trace ankle edema bilaterally no RV lift apex nonpalpable Pulmonary: Effort: Prolonged expiration present. No accessory muscle usage or respiratory distress. Breath sounds: Decreased air movement present. No stridor. No wheezing or rales. Comments: Somewhat diminished breath sounds healed sternotomy Abdominal: Palpations: Abdomen is soft. Tenderness: There is no abdominal tenderness. There is no guarding or rebound. Comments: No obvious pulsatility on limited exam Musculoskeletal: General: No deformity. Cervical back: Normal range of motion. Right lower le+ Edema present. Left lower le+ Edema present. Comments: Some muscle wasting distally Skin: General: Skin is warm and dry. Coloration: Skin is not cyanotic. Findings: Bruising present. Comments: Moderate bruising Neurological: Mental Status: He is alert. Coordination: Coordination normal. Comments: Did not do mental status testing pretty normal speech answers questions pretty accurately able to continue sentences and really able to cognitively understand questions and answer quickly Psychiatric: Mood and Affect: Mood and affect normal. Pertinent Labs: CBC: No results found for: HB , HCT , WBC , PLT BMP: No results found for: GLUC , K , NA , CHLOR , CO2 , CREAT , BUN , ANION , CA INR: TSH: No results found for: TSHREFL Lipid Profile: No results found for: CHOL , HDL , LDL , TG Hemoglobin A1C: No results found for: HGBA1C Most Recent Cardiac Testing Assessment and Plan: 1. 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 artery of [place] heart without angina pectoris (I25.10) 2. Hx of CABG (Z95.1) 3. ROMAN (dyspnea on exertion) (R06.09) 4. Non-rheumatic mitral regurgitation (I34.0) History of triple CABG with chronic RCA occlusion and patent SPRAGUE to LAD and radiograph to obtuse marginal; saphenous graft to PDA occluded. Recent echo (February) shows EF 55%, grade 3 diastolic dysfunction, mild-moderate pulmonary hypertension, and moderate mitral insufficiency. No current angina or chest pain. Dyspnea on exertion may be multifactorial, related to diastolic dysfunction, pulmonary hypertension, and/or COPD. - Order chemical stress test to assess myocardial perfusion and rule out ischemia as a contributor to dyspnea. - Order BNP to help differentiate cardiac vs. pulmonary etiology of dyspnea. - Educated patient and family on echo findings, emphasizing strong heart muscle function and the need for annual echo surveillance. - Follow-up in 1 year. If there is suggestion of a lot of diastolic heart failure can certainly adjust medical therapy. His volume status however looks pretty good SGLT2 antagonist would be an option 5. Primary hypertension (I10) reasonable control with target blood pressure 130/80 or lower 6. Mixed hyperlipidemia (E78.2) Blood pressure and lipid levels are well controlled; most recent lipids (October): HDL 42, LDL 52. On statin - Continue current management. 7. CRI (chronic renal insufficiency), stage 4 (severe) ([facility]) (N18.4) Stage 4 renal insufficiency; most recent creatinine 1.9 (January). Unclear etiology: No diabetes does not use nonsteroidals. Could be due to PAD. - Advised caution with contrast exposure during upcoming peripheral angiogram; patient and family understand the need for pre- and post-procedure hydration. 8. PAD (peripheral artery disease) (I73.9) Significant lower extremity claudication and weakness; segmental pressure testing confirms PAD. No prior vascular interventions. Certainly recent noninvasive studies suggest significant PAD and hopefully upcoming angio can find targets for percutaneous revascularization that might help his symptoms. May also be worth having primary physician make sure there is no musculoskeletal spinal stenosis cause but will obviously defer this to her - Continue aspirin and Plavix. - Support proceeding with planned peripheral angiogram by Dr. Tolliver at [facility]. - Discussed potential interventions (balloon angioplasty, stenting, surgery) depending on angiogram findings. - Advised patient and family to ensure results are sent to our office for review. 9. Other emphysema ([facility]) (J43.8) COPD with mild baseline symptoms; no current oxygen requirement. History of remote smoking cessation (~40 years ago) and prior lung cancer with lobectomy 30 years ago. - Order chest X-ray and pulmonary function tests to assess current pulmonary status. - Discussed that mild-moderate pulmonary hypertension on echo may be related to COPD and prior lung surgery. 10. Cognitive deficit: Per family has some diagnosis of dementia. As I told him in the office all things considered his neurologic status was pretty reasonable and answer questions pretty appropriately. I certainly did not do mental status testing and he does not drive I will asked that patient's primary physician if possible order the test that I have ordered to be done locally for the patient to avoid him having to come back to [place] or [place] for all this testing. If they are done locally in the [facility] or in [place] I would then asked that results be sent to our office when available. Thank you Electronically signed by Bill Gant MD on March 31, 2025, 7:13 AM [1] Social History Tobacco Use Smoking status: Never Smokeless tobacco: Former Types: Chew Quit date: 07/14/2022 documented in this encounter [facility] 04-01-2025 Note HNO ID: [id number] Author: BILL GANT MD Service: ? Author Type: Physician Type: Progress Notes Filed: 04/01/2025 15:11 Note Text: Chief Complaint No chief complaint on file. History of Present Illness: Samir Castillo is a 69-year-old male with a history of CAD, status post-CABG, HTN, HLD, COPD, PAD, stage 4 CKD, and mild cognitive impairment, presenting for a new patient visit. He lives in [place] and gets most of his care in [place] at [facility] but just wants a second opinion on overall management. He underwent a heart catheterization 11 years ago, revealing a chronically occluded RCA that could not be opened, a patent SPRAGUE to the LAD, a patent radial graft to the obtuse marginal artery, and an occluded saphenous vein graft to the PDA. His LVEF was 50-55% at that time. A recent echocardiogram in February showed an LVEF of 55%, grade 3 diastolic dysfunction, mild to moderate pulmonary hypertension, and moderate mitral regurgitation. He has not had a stress test in the past few years. He denies experiencing angina, chest pain, palpitations, syncope, or severe dizziness. He reports dyspnea on exertion, particularly when walking short distances or climbing stairs. He denies any history of stroke, DVT, or PE. He has not had any recent chest X-rays or CT scans. He reports significant leg weakness and pain, particularly in the ankles and calves, leading to frequent falls. He denies any tingling sensations. He has not seen a neurologist or vascular surgeon for these symptoms. He uses furniture for support when walking at home and is currently in a wheelchair. He has a scheduled procedure next week to evaluate his leg arteries. He has a history of lung cancer with partial lobectomy performed 30 years ago. He denies any current use of supplemental oxygen. 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 He denies any history of diabetes, liver disease, or excessive alcohol use. He denies any internal bleeding or significant bruising. He denies any use of NSAIDs such as Advil or Aleve. He has a history of mild cognitive impairment and is no longer driving. He relies on his family for transportation. He worked at a [employer] before retiring. He quit smoking 40 years ago. He is currently taking aspirin and Plavix. Recent lab results include a creatinine of 1.9 mg/dL and potassium of 4.3 mmol/L in January, and HDL of 42 mg/dL and LDL of 52 mg/dL in October. No past medical history on file. No past surgical history on file. No family history on file. SOCIAL HISTORY[1] ALLERGIES No Known Allergies Medications: Current Outpatient Medications Medication Sig Dispense Refill traZODone (DESYREL) 100 mg tablet Take 100 [...] SL tablet nitroglycerin 0.4 mg sublingual tablet sertraline (ZOLOFT) 100 mg tablet sertraline 100 mg tablet TAKE 1 AND 1/2 TABLETS BY MOUTH EVERY DAY omega 4-gyo-edg-fish oil (FISH OIL) 100-160-1,000 mg cap Take by mouth. No current facility-administered medications for this visit. ROS Physical Examination: Vitals: BP 123/58 (BP Site: Left Arm, BP Position: Sitting, BP Cuff Size: Regular Adult) Pulse (!) 59 Ht 5' 6 (1.676 m) Wt 165 lb (74.8 kg) SpO2 99% BMI 26.63 kg/m? Last 2 Encounter Wt Readings: Date: Wt: 10/12/2024 169 lb 15.6 oz (77.1 kg) 05/04/2024 177 lb 7.5 oz (80.5 kg) Physical Exam Vitals reviewed. Constitutional: Comments: Patient sitting in wheelchair elderly chronically ill-appearing very pleasant and answers most questions pretty accurately no resting tachypnea H (more content not included)... [facility] 03-10-2025 History of Present illness Narrative [facility] [address] [place] [address] Patient: Kel Castillo Jr. Sex: male : 1955 Age: 69 y.o. PCP: SUSAN WATSON APRN-[employer]MAK[employer] [facility] 03/10/2025 Kel Castillo JrBren is here for a(n) post procedure follow up 02-19-2025 Bilateral C 5/6, 6/7 Medial Branch Block with 20% relief x 1 day and 0% relief today. Date of onset of pain: 2024 , pain has lasted greater than 3 months. Pain scale before treatment: 8/10 Pre-op pain score: 8/10 Post-op pain score: 7/10 2 hour post-op pain score: 7/10 4 hour post-op pain score: 7/10 Percentage and duration of relief after treatment: 20% relief x 1 day Pain scale after treatment: 8/10 Chief Complaint Patient presents with Neck Pain HPI: NSAIDs contraindicated due to CKD and Plavix Neck Pain This is a new problem. Episode onset: November 2024. The problem occurs constantly. The problem has been unchanged. The pain is associated with nothing. The pain is present in the right side and midline (radiates into right shoulder). The quality of the pain is described as aching, stabbing, shooting, burning and cramping. The pain is at a severity of 8/10. The pain is severe. Exacerbated by: walking, stairs, bending, lifting, twisting, pushing/pulling, cough/sneeze, transitioning. The pain is Same all the time. Stiffness is present At night. Associated symptoms include headaches (worsening headaches on right side; daily) and weakness (generalized and BLE). Pertinent negatives include no fever, numbness or tingling. Treatments tried: Baclofen, prednisone oral with no relief; tylenol, heat, ice, bengay topical with minimal relief; The effect of pain on patient's ADLS: Moderate Impairment. Past Medical History: Diagnosis Date Abnormal results of cardiovascular function studies 09/30/2013 MILD INFERIOR AND ANTERIOR ISCHEMIA EF 52% Anemia Atherosclerosis of arteries of extremities 08/25/2012 Cervical spondylosis 01/19/2025 Chest pain 09/18/2013 Chronic kidney disease Chronic kidney disease, stage 4 (severe) ([facility]) 09/19/2023 Chronic obstructive pulmonary disease, unspecified ([facility]) 03/11/2024 CKD (chronic kidney disease) stage 3 Closed nondisplaced fracture of greater tuberosity of left humerus with routine healing 09/19/2023 COPD (chronic obstructive pulmonary disease) ([facility]) Coronary artery disease 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 artery of port graham heart without angina pectoris 09/19/2023 Depression Dyspnea and respiratory abnormalities 09/18/2013 66 pk/yr history of smoking. Quit in 1994, when diagnosed with NSCLC and treated with RULobectomy and XRT. Also has extensive coronary disease, with CABG. Sees cardiology at [place]. Anxiety, HTN, CKD IIIb. PCP started albuterol for SOB, which did not help. Then Breo elipta, then advair, none of which has worked. Now on Breo and Advair and albuterol. SOB is exertional. Can only walk abou Frequent falls 06/17/2024 Functional gait abnormality 06/17/2024 EDITH (generalized anxiety disorder) 09/19/2023 Gastroesophageal reflux disease without esophagitis 07/18/2012 History of cardiovascular stress test Hx of echocardiogram Hypertension Intermittent claudication 08/25/2012 Lung cancer ([facility]) MCI (mild cognitive impairment) 04/12/2022 Migraine 07/18/2012 Mixed hyperlipidemia 07/18/2012 Neck pain Numbness JITENDRA (obstructive sleep apnea) Primary hypertension 05/28/2014 Recurrent major depression in partial remission 04/12/2022 Recurrent major depressive disorder, in full remission 04/12/2022 Traumatic complete tear of left rotator cuff 09/19/2023 Weakness Past Surgical History: Procedure Laterality Date INJECTION BLOCK NERVE MEDIAL BRANCH Bilat C 12/15, 01/16 Bilateral 02/19/2025 Performed by Abiodun Cherry MD at [facility] No Known Allergies History reviewed. No pertinent [...] Social Drivers of Health Financial Resource Strain: Low Risk (02/28/2025) Received from [facility] Overall Financial Resource Strain (CARDIA) Difficulty of Paying Living Expenses: Not very hard Food Insecurity: No Food Insecurity (03/10/2025) Hunger Screening Food Insecurity - Worry: Never True Food Insecurity - Inability: Never True Transportation Needs: No Transportation Needs (02/28/2025) Received from [facility] PRAPARE - Transportation Lack of Transportation (Medical): No Lack of Transportation (Non-Medical): No Physical Activity: Inactive (02/28/2025) Received from [facility] Exercise Vital Sign Days of Exercise per Week: 0 days Minutes of Exercise per Session: 0 min Stress: Stress Concern Present (02/28/2025) Received from [facility] [place] [employer] Occupational Health - Occupational Stress Questionnaire Feeling of Stress : To some extent Social Connections: Socially Isolated (02/28/2025) Received from [facility] Social Connection and Isolation Panel [NHANES] Frequency of Communication with Friends and Family: More than three times a week Frequency of Social Gatherings with Friends and Family: Once a week Attends Anabaptist Services: Never Active Member of Clubs or Organizations: No Attends Club or Organization Meetings: Never Marital Status: Interpersonal Safety: Not At Risk (02/28/2025) Received from [facility] Humiliation, Afraid, Rape, and Kick questionnaire Fear of Current or Ex-Partner: No Emotionally Abused: No Physically Abused: No Sexually Abused: No Housing Instability: Low Risk (02/28/2025) Received from [facility] Housing Stability Vital Sign Unable to Pay for Housing in the Last Year: No Number of Times Moved in the Last Year: 0 Homeless in the Last Year: No Review of Systems Constitutional: Negative for fever. HENT: Negative. Eyes: Negative. Respiratory: Negative. Cardiovascular: Negative. Gastrointestinal: Negative. Endocrine: Negative. Genitourinary: Negative. Musculoskeletal: Positive for arthralgias and neck pain. Neurological: Positive for weakness (generalized and BLE) and headaches (worsening headaches on right side; daily). Negative for tingling and numbness. Vital Signs: BP 123/54 (BP Site: Left Arm, BP Postition: Sitting) Pulse 51 Resp 18 Ht 165.1 cm (5' 5 ) Wt 73.9 kg (163 lb) SpO2 100% BMI 27.12 kg/m Physical Exam: GENERAL - Healthy patient [...] all dermatomal distributions. Spurlings sign is negative. Cervical: SKIN - No rashes or bruising in the area of the patient s pain. LYMPH NODES - demonstrate no obvious enlargement. EXTREMITIES - Upper extremities are warm, with minimal edema and palpable pulses. Tenderness to palpation noted in the right cervical spine and paraspinal musculature. Pain is elicited with flexion, extension, and lateral rotation of the right cervical spine. Range of motion is diminished [...] orders for this visit: Cervical spondylosis - MR cervical spine without contrast; Future Cervical spine MRI - It is felt that additional diagnostic testing is necessary to further evaluate the patients current pain pathology. For this reason, we will order additional imaging noted above. It is hopeful that this study will identify a significant pain generator that will be amenable to therapy. It is felt that this modality is necessary due to the severity and chronicity of symptoms and physical exam findings combined with the lack of recent imaging of the area. An MRI is specifically felt to be necessary due to the physical exam findings noted above and the patient s description of refractory pain in a neuropathic distribution that is not relieved by change in body position and interferes with the patient s activities of daily living Follow up after testing The medications prescribed have been reviewed for [...] The spine model was demonstrated and Xray and MRI was reviewed and used to explain the condition. Chronic conditions not treated during this visit that affected my overall medical decision making: CAD, COPD, Sleep apnea. Depression OARRS: Reviewed. Scribe Statement: I, Susan Anderson CNA, scribed for and in the presence of DARRICK SAUER PA-C who performed the above service. Susan Anderson CNA 03/10/25 1033 Susan Anderson CNA 03/10/25 1040 Darrick Sauer PA-C 03/10/25 1049 documented in this encounter [facility] 03-01-2025 History of Present illness Narrative Associated Problem(s): Gastroesophageal reflux disease without esophagitis Recommendations: freq small meals, nothing to eat or drink at least 2 hours prior to bed, limit caffeine, alcohol, as well as spicy foods Meds to limit or avoid if possible: NSAIDS Elevate HOB if possible Current meds: famotidine Associated Problem(s): Chronic obstructive pulmonary disease, unspecified (HCC) Is prescribed trelegy inhaler Associated Problem(s): Neck pain Continue with Pain Mgmt Left eye-blood shot no pain, started about 7/4 started to lighten up some-daughter states that it became red again about 2 weeks again. No complaints of blurry vision, no pain, pt is having headaches on right side, no falls, no slurred speech Pt typically looses balance and stumbles a bit- he did before stepping onto the scale. Pt does often become dizzy Pt had vascular study and echo done- notes in chart Images from the original note were not included. Kel Castillo Jr is a 69 y.o. male presents with chief complaint of Hypertension HPI: Left eye-blood shot no pain, started about 7/4 started to lighten up some-daughter states that it became red again about 2 weeks again. No complaints of blurry vision, no pain, pt is having headaches on right side, no falls, no slurred speech Pt typically looses balance and stumbles a bit- he did before stepping onto the scale. Pt does often become dizzy Pt had vascular study and echo done- notes in chart Hypertension This is a chronic problem. The current episode started more than 1 year ago. The problem is unchanged. The problem is controlled. Associated symptoms include neck pain. Pertinent negatives include no headaches, peripheral edema or shortness of breath. SUBJECTIVE: MEDICATIONS: Current Outpatient Medications Medication Instructions [...] (ANTARA) 43 mg, Oral, Daily with breakfast FeroSul 325 (65 Fe) MG tablet 1 tablet, Daily Ofeopiyucgq-Ywtpzkvro-Fjlsmi (Trelegy Ellipta) 100-62.5-25 MCG/ACT aerosol powder 1 [...] sneezing, trouble swallowing and voice change. Eyes: Positive for redness. Negative for pain, discharge and visual disturbance. Respiratory: Negative for apnea, chest tightness, shortness of breath and wheezing. Cardiovascular: Negative for leg swelling. Gastrointestinal: Negative for abdominal distention, blood in stool, constipation and diarrhea. Genitourinary: Negative for decreased urine volume, difficulty urinating, dysuria and hematuria. Musculoskeletal: Positive for neck pain. Skin: Negative for color change. Neurological: Positive for dizziness. Negative for tremors, seizures and headaches. Psychiatric/Behavioral: Negative for agitation, decreased concentration, hallucinations, self-injury and suicidal ideas. The patient is nervous/anxious. Hematological: Negative for adenopathy. Does not bruise/bleed easily. Endocrine: Negative for cold intolerance, heat intolerance, polydipsia and polyuria. Allergic/Immunologic: Negative for environmental allergies and food allergies. PAST MEDICAL HISTORY Past Medical History: Diagnosis Date Alcoholism ([facility]) ( quit drinking 25 years ago) Anxiety and depression Bronchitis Chicken pox CKD (chronic kidney disease), symptom management only, stage 4 (severe) ([facility]) Claudication of calf muscles COPD (chronic obstructive pulmonary disease) ([facility]) Coronary artery disease Depression with anxiety GERD (gastroesophageal reflux disease) Heart disease High blood pressure High cholesterol History of medical problems Hernia History of migraine headaches History of psychiatric care Kidney disease Lung cancer (HCC) JITENDRA (obstructive sleep apnea) Peripheral vascular disease Umbilical hernia URTI (infection of the upper respiratory tract) Ventral hernia Past Surgical History: Procedure Laterality Date BYPASS GRAFT triple bypass COLONOSCOPY 07/20/2021 PCL HERNIA REPAIR 09/30/2020 Umbilical and Ventral hernia repair w/ PCLaffay LUNG REMOVAL, PARTIAL with radiation, right family history includes Diabetes in his mother and sister; Heart disease in his mother; Hypertension in his mother. OBJECTIVE: Visit Vitals BP 126/64 (BP Location: Left arm, Patient Position: Sitting, BP Cuff Size: Adult long) Pulse 54 Temp 97.3 F (Temporal) Resp 18 Wt 166 lb 9.6 oz SpO2 97% BMI 25.33 kg/m Smoking Status Former BSA 1.9 m Physical Exam Vitals and nursing note reviewed. Constitutional: Appearance: Normal appearance. HENT: Head: Normocephalic. Right Ear: External ear normal. Left Ear: External ear normal. Nose: Nose normal. Mouth/Throat: Mouth: Mucous membranes are moist. Pharynx: Oropharynx is clear. Eyes: Extraocular Movements: Extraocular movements intact. Pupils: Pupils are equal, round, and reactive to light. Comments: Left eye: conjunctival hemorrhage Neck: Vascular: No carotid bruit. Cardiovascular: Rate and Rhythm: Normal rate and regular rhythm. Pulses: Normal pulses. Heart sounds: Normal heart sounds. Pulmonary: Effort: Pulmonary effort is normal. Breath sounds: Normal breath sounds. No wheezing or rhonchi. Abdominal: General: Bowel sounds are normal. Palpations: Abdomen is soft. Musculoskeletal: Cervical back: Neck supple. Right lower leg: No edema. Left lower leg: No edema. Comments: Decreased ROM cervical spine Lymphadenopathy: Cervical: No cervical adenopathy. Skin: General: Skin is warm and dry. Capillary Refill: Capillary refill takes 2 to 3 seconds. Neurological: General: No focal deficit present. Mental Status: He is alert. Psychiatric: Mood and Affect: Mood normal. Behavior: Behavior normal. Thought Content: Thought content normal. Judgment: Judgment normal. ASSESSMENT AND PLAN: Follow up in about 3 months (around 06/01/2025) for Recheck. Problem List Items Addressed This Visit 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 artery of port graham heart without angina pectoris Established with [facility] Cardiology Current meds: asa, amlodipine, statin, plavix, imdur, raulito, b kelsy, and prn nitro Relevant Medications aspirin 81 MG EC tablet clopidogrel (Plavix) 75 MG tablet isosorbide mononitrate ER (Imdur) 60 MG 24 hr tablet metoprolol tartrate (Lopressor) 50 MG tablet Chronic kidney disease, stage 4 (severe) (HCC) Continue with Nephrology Check labs yearly and prn Relevant Medications ferrous sulfate (FeroSul) 325 (65 Fe) MG tablet Gastroesophageal reflux disease without esophagitis Recommendations: freq small meals, nothing to eat or drink at least 2 hours prior to bed, limit caffeine, alcohol, as well as spicy foods Meds to limit or avoid if possible: NSAIDS Elevate HOB if possible Current meds: famotidine Relevant Medications famotidine (Pepcid) 20 MG tablet EDITH (generalized anxiety disorder) Current meds: wellbutrin, buspar, sertraline and olanzapine Relevant Medications OLANZapine (ZyPREXA) 5 MG tablet sertraline (Zoloft) 100 MG tablet traZODone (Desyrel) 100 MG tablet Chronic obstructive pulmonary disease, unspecified (HCC) Is prescribed trelegy inhaler Relevant Medications Xcguihmwbuj-Mteugzgoz-Imlzzj (Trelegy Ellipta) 100-62.5-25 MCG/ACT aerosol powder Primary hypertension Please check blood pressure daily and record DASH diet Limit caffeine Take medication as directed Contact office if chest pain, pressure, dizziness, shortness of breath, swelling legs Recommend slow position changes Current meds; raulito, b kelsy, calcium channel kelsy, imdur Relevant Medications amLODIPine (Norvasc) 5 MG tablet isosorbide mononitrate ER (Imdur) 60 MG 24 hr tablet lisinopril 10 MG tablet metoprolol tartrate (Lopressor) 50 MG tablet Neck pain Continue with Pain Mgmt Cervical spondylosis Referred to Dr Cherry pain mgmt Xr 02/08/25 DDD mod, C5-C6 and C6 C7 Chronic diastolic heart failure (HCC) - Primary Noted on ECHO: 02/18/2525 grade 3 Current meds: plavix, norvasc, imdur, raulito, b kelsy, Pulmonary hypertension (HCC) Noted on ECHO from 02/18/25 pressure 46 Other Visit Diagnoses Other hyperlipidemia Relevant Medications atorvastatin (Lipitor) 80 MG tablet fenofibrate micronized (Antara) 43 MG capsule Recurrent major depression in partial remission Relevant Medications buPROPion XL (Wellbutrin XL) 300 MG 24 hr tablet busPIRone (Buspar) 15 MG tablet sertraline (Zoloft) 100 MG tablet traZODone (Desyrel) 100 MG tablet Associated Problem(s): EDITH (generalized anxiety disorder) Current meds: wellbutrin, buspar, sertraline and olanzapine Associated Problem(s): Cervical spondylosis Referred to Dr Dilip mack Xr 02/08/25 DDD mod, C5-C6 and C6 C7 Associated Problem(s): Pulmonary hypertension (HCC) Noted on ECHO from 02/18/25 pressure 46 Associated Problem(s): Chronic kidney disease, stage 4 (severe) (HCC) Continue with Nephrology Check labs yearly and prn Associated Problem(s): 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 artery of port gra[place] heart without angina pectoris Established with [facility] Cardiology Current meds: asa, amlodipine, statin, plavix, imdur, raulito, b kelsy, and prn nitro Associated Problem(s): Primary hypertension Please check blood pressure daily and record DASH diet Limit caffeine Take medication as directed Contact office if chest pain, pressure, dizziness, shortness of breath, swelling legs Recommend slow position changes Current meds; raulito, b kelsy, calcium channel kelsy, imdur Associated Problem(s): Chronic diastolic heart failure (HCC) Noted on ECHO: 02/18/2525 grade 3 Current meds: plavix, norvasc, imdur, raulito, b kelsy, documented in this encounter [facility] 03-01-2025 Instructions Susan Watson NP - 03/01/2025 1:40 PM EDT Please call dr amezcua's office to get an appt documented in this encounter [facility] 01-27-2025 History of Present illness Narrative [facility] [address] [place] [address] Patient: Kel Castillo Jr. Sex: male : 1955 Age: 69 y.o. PCP: SUSAN WATSON APRN-[employer] 01/27/2025 Kel Castillo Jr. is here for [...] kidney disease COPD (chronic obstructive pulmonary disease) ([facility]) Coronary artery disease Hypertension Neck pain History [...] Strain: Medium Risk (07/22/2023) Received from [facility] Overall Financial Resource Strain (CARDIA) Difficulty of Paying Living Expenses: Somewhat hard Food Insecurity: No Food Insecurity (01/27/2025) Hunger Screening Food Insecurity - Worry: Never True Food Insecurity - Inability: Never True Transportation Needs: No Transportation Needs (07/22/2023) Received from [facility] PRAPARE - Transportation Lack of Transportation (Medical): No Lack of Transportation (Non-Medical): No Physical Activity: Inactive (07/22/2023) Received from [facility] Exercise Vital Sign Days of Exercise per Week: 0 days Minutes of Exercise per Session: 0 min Stress: Stress Concern Present (07/22/2023) Received from [facility] [place] of Occupational Health - Occupational Stress Questionnaire Feeling of Stress : Very much Social Connections: Moderately Isolated (07/22/2023) Received from [facility] Social Connection and Isolation Panel [NHANES] Frequency of Communication with Friends and Family: More than three times a week Frequency of Social Gatherings with Friends and Family: Twice a week Attends Anabaptist Services: Never Active Member of Clubs or Organizations: No Attends Club or Organization Meetings: Never Marital Status: Interpersonal Safety: Unknown (10/03/2023) Received from [facility] [place] Safety & Environment Fear of Current or Ex-Partner: Not on file Emotionally Abused: Not on file Physically Abused: Not on file Sexually Abused: Not on file Physically or Sexually Abused: Not on file Housing Instability: Low Risk (07/22/2023) Received from [facility] Housing Stability Vital Sign Unable to Pay [...] this treatment plan. OARRS: Reviewed. Scribe Statement: Susan Galindo CNA, scribed for and in the presence of DARRICK SAUER PA-C who performed the above service. Susan Anderson CNA 01/27/25 1109 aDrrick Sauer PA-C 01/27/25 1115 documented in this encounter [employer] 01-27-2025 Instructions Susan Anderson CNA - 01/27/2025 [...] nearest emergency room. documented in this encounter [facility] stiQRd 01-19-2025 History of Present illness Narrative Neck pain has gotten worse- [...] (ANTARA) 43 mg, Oral, Daily with breakfast Hyyndhkghil-Irbqycplq-Guetli (Trelegy Ellipta) 100-62.5-25 MCG/ACT aerosol powder 1 [...] HISTORY Past Medical History: Diagnosis Date Alcoholism ([facility]) ( quit drinking 25 years ago) Anxiety and depression ([facility]) Bronchitis Chicken pox CKD (chronic kidney disease), symptom management only, stage 4 (severe) ([facility]) Claudication of calf muscles ([facility] COPD (chronic obstructive pulmonary disease) ([facility]) Coronary artery disease ([facility]) Depression with anxiety GERD (gastroesophageal reflux disease) Heart disease High blood pressure ([facility]) High cholesterol ([facility]) History of medical problems Hernia History of migraine headaches History of psychiatric care Kidney disease Lung cancer ([facility]) JITENDRA (obstructive sleep apnea) Peripheral vascular disease ([facility]) Umbilical hernia URTI (infection of the upper [...] testing Chronic kidney disease, stage 4 (severe) (CMS/HCC) Continue with Nephrology Check labs yearly and prn H/O: lung cancer EDITH (generalized anxiety disorder) ([facility]) Current meds: wellbutrin, buspar, sertraline and olanzapine [...] Stretching exercises given, Trial baclofen at HS, december try 1/2 pill, No NSAID d/t renal [...] testing Associated Problem(s): EDITH (generalized anxiety disorder) ([facility]/HCC) Current meds: wellbutrin, buspar, sertraline and olanzapine Associated Problem(s): Chronic kidney disease, stage 4 (severe) (CMS/HCC) Continue with Nephrology Check labs yearly and prn Associated Problem(s): Primary hypertension ([facility]/HCC) Please check blood pressure daily and record DASH diet Limit caffeine Take medication as directed Contact office if chest pain, pressure, dizziness, shortness of breath, swelling legs Recommend slow position changes Current meds; raulito, b kelsy, calcium channel kelsy, imdur Associated Problem(s): Neck pain Last appt: recommended Ice to affected area 4-5 times daily, Stretching exercises given, Trial baclofen at HS, december try 1/2 pill, No NSAID d/t renal function Had plain film xray 01/11/2025 mod-severe deg changes C5-C6 and C6-C7 Refer to pain mgmt Trial prednisone taper documented in this encounter [facility] 01-19-2025 Instructions Susan Watson NP - 01/19/2025 1:00 PM EDT Pain mgmt documented in this encounter [facility] 11-19-2024 History of Present illness Narrative Associated Problem(s): Neck pain Ice [...] (ANTARA) 43 mg, Oral, Daily with breakfast Hmyizfwfxaq-Elccaredh-Zoonmy (Trelegy Ellipta) 100-62.5-25 MCG/ACT aerosol powder 1 [...] HISTORY Past Medical History: Diagnosis Date Alcoholism ([facility]) ( quit drinking 25 years ago) Anxiety and depression ([facility]) Bronchitis Chicken pox CKD (chronic kidney disease), symptom management only, stage 4 (severe) ([facility]/HCC) Claudication of calf muscles (CMS/HCC) COPD (chronic obstructive pulmonary disease) (CMS/HCC) Coronary artery disease (CMS/HCC) Depression with anxiety GERD (gastroesophageal reflux disease) Heart disease High blood pressure (CMS/HCC) High cholesterol (CMS/HCC) History of medical problems Hernia History of migraine headaches History of psychiatric care Kidney disease Lung cancer (CMS/HCC) JITENDRA (obstructive sleep apnea) Peripheral vascular disease (CMS/HCC) Umbilical hernia URTI (infection of the upper [...] Therapy Chronic kidney disease, stage 4 (severe) ([facility]) Continue with Nephrology Check labs yearly and prn EDITH (generalized anxiety disorder) ([facility]) Current meds: wellbutrin, buspar, sertraline Pt's daughter is a tita DIRECT CARE STAFFER, I have given daughter present today options for addressing anxiety: Buspar TID, olanzapine at 2.5mg or quetiapine She will talk with sister and go from there Primary hypertension ([facility]) Please check blood pressure daily and record [...] tablet Associated Problem(s): EDITH (generalized anxiety disorder) ([facility]) Current meds: wellbutrin, buspar, sertraline Pt's daughter is a tita DIRECT CARE STAFFER, I have given daughter present today options [...] Current meds: famotidine Associated Problem(s): Primary hypertension ([facility]) Please check blood pressure daily and record DASH diet Limit caffeine Take medication as directed Contact office if chest pain, pressure, dizziness, shortness of breath, swelling legs Recommend slow position changes Current meds; raulito, b kelsy, calcium channel kelsy, imdur Associated Problem(s): Atherosclerosis of arteries of extremities ([facility]) Asa, plavix, statin Associated Problem(s): 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 artery of [place] heart without angina pectoris ([facility]) Established with [facility] Cardiology Current meds: asa, amlodipine, statin, plavix, imdur, raulito, b kelsy, and prn nitro Associated Problem(s): Chronic obstructive pulmonary disease, unspecified Is prescribed trelegy inhaler documented in this encounter [facility] 11-19-2024 Instructions Susan Watson NP - 11/19/2024 1:00 PM EDT Anxiety; we could try increase buspirone to 15mg three times daily Or consider adding olanzapine at 2.5mg at bed time ??low dose of quetiapine like 25mg at bedtime I will order PT and speech therapy at [facility] Neck: try stretching exercises, baclofen 10mg pill at bedtime as needed for muscle spasms documented in this encounter [facility] 10-27-2024 Evaluation note Diagnosis Onset Date Resolution [...] 19, 025 4:22pm Hyperlipemia acute January 19 2 025 4:22pm Hypertensive chronic kidney disease with stage 1 through stage 4 chronic ki acute January 19, 2025 4:22pm [facility] Work Phone: [phone] Chief Complaint: [...] occluded right coronary artery. 2. Severe 3-vessel [place] coronary artery disease. 3. Patent left internal mammary artery graft to the left anterior descending. 4. Patent radial artery graft to the obtuse marginal. 5. Occluded saphenous vein graft to the posterior descending artery Echo 2014 The left ventricle is normal in size [...] Laboratory Report FINAL IMPRESSIONS: 1. Severe 3-vessel [place] coronary artery disease. 2. A 2/3 bypass grafts patent; the radial artery graft to the posterior descending artery is occluded. 3. Severe, heavily calcific lesion of the right common femoral artery; this is a new angiographic finding. Assessment: Coronary a (more content not included)...[facility] 10-12-2024 Instructions* Patient Instructions* Ebony Trent, DO - 10/12/2024 11:31 AM EST Please do physical therapy and speech therapy. Please follow-up with your sleep apnea doctor about a better mask as this can help memory. Follow-up in six months. He and his family may benefit from the following community resources: [facility] Agencies on Aging -- , https://aging.[place].gov/about-us/who-we-are/uehi-ratxswfd-eb-aging Visit your local Senior Center to participate in stimulating activities and socialize with others -https://www.careSwish.org/oopq97_bxqj_jacoin_iulpdln.htm He can use strategies to help optimize [...] for Neurodegenerative Delay (MIND) diet, is recommended. 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 Re-evaluation in approximately 18-24 months (or as needed). [facility] NoteHNO ID: [id number] Author: EBONY TRENT DO Service: ? Author Type: Physician Type: Progress Notes Filed: 10/12/2024 14:47 Note Text: [facility] General Neurology Follow up/ Established patient visit Individuals who were included in, or assisted with the encounter were: Samir Castillo Ebony Black DO Chief Complaint/Issues: Samir Castillo is a 69 year old male seen in the [facility] for General Neurology for: Memory loss Most [...] lightheadedness Assessment AND Plan 10/12/2024 - General NeurologyEbony DO ASSESSMENT Mr. Jaramillo, is a 69 year old man with untreated sleep apnea here for follow-up of (more content not included)...[facility]03-03-2025 History of Present illness Narrative* Ebony Trent DO - 10/12/2024 11:28 AM EST Images from the original note were not included. [facility] for General Neurology Follow up/ Established patient visit Individuals who were included in, or assisted with the encounter were: Samir Castillo Ebony Black DO Chief Complaint/Issues: Samir Castillo is a 69 year old male seen in the [facility] for General Neurology for: Memory loss Most [...] 1/2 TABLETS BY MOUTH EVERY DAY omega 0-ern-gdc-fish oil (FISH OIL) 100-160-1,000 mg cap Take [...] which included preparing to see the patient, raco-bn-zldc patient care, completing clinical documentation, obtaining and/or [...] 70 (Recommend sleep study) [facility]25 NoteHNO ID: [id number] Author: SANDRA JAY MA Service: ? Author Type: Sales Performance Manager Type: Progress Notes Filed: 10/12/2024 14:47 Note [...] Sleep Apnea Probability Score: 70 (Recommend sleep study)[facility]02-27-2025 History of Present illness Narrative* Susan Watson [...] no compliance problems. Hypertensive end-organ damage includes CAD/DE. Heart Problem This is a chronic problem. [...] (ANTARA) 43 mg, Oral, Daily with breakfast Fopsintmmar-Onvkpxsnb-Hqfxzd (Trelegy Ellipta) 100-62.5-25 MCG/ACT aerosol powder 1 [...] HISTORY Past Medical History: Diagnosis Date Alcoholism ([facility]) ( quit drinking 25 years ago) Anxiety and depression ([facility]) Bronchitis Chicken pox CKD (chronic kidney disease), symptom management only, stage 4 (severe) (CMS/HCC) Claudication of calf muscles (CMS/HCC) COPD (chronic obstructive pulmonary disease) (CMS/HCC) Coronary artery disease (CMS/HCC) Depression with anxiety GERD (gastroesophageal reflux disease) Heart disease High blood pressure (CMS/HCC) High cholesterol (CMS/HCC) History of medical problems Hernia History of migraine headaches History of psychiatric care Kidney disease Lung cancer (CMS/HCC) JITENDRA (obstructive sleep apnea) Peripheral vascular disease (CMS/HCC) Umbilical hernia URTI (infection of the upper [...] and neuropsych testing 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 artery of [place] heart without angina pectoris ([facility]) - Primary Current meds: plavix, amlodipine, statin, b kelsy, nitroglycerin prn No acute symptoms, cont with [facility] Cardiology Relevant Medications clopidogrel (Plavix) 75 MG tablet isosorbide mononitrate ER (Imdur) 60 MG 24 hr tablet metoprolol tartrate (Lopressor) 50 MG tablet Mixed hyperlipidemia ([facility]) On statin and fenofibrate Check labs yearly and prn dose changes Relevant Medications atorvastatin (Lipitor) 80 MG tablet fenofibrate micronized (Antara) 43 MG capsule Chronic kidney disease, stage 4 (severe) ([facility]) Continue with Nephrology Gastroesophageal reflux disease without esophagitis Recommendations: freq small meals, nothing to eat or drink at least 2 hours prior to bed, limit caffeine, alcohol, as well as spicy foods Meds to limit or avoid if possible: NSAIDS Elevate HOB if possible Current med: pepcid Relevant Medications famotidine (Pepcid) 20 MG tablet EDITH (generalized anxiety disorder) ([facility]) Current meds: wellbutrin XL, buspar, sertraline, and trazodone EDITH 7=4 Had recent neuropsych testing has fu appt in a few weeks Relevant Medications sertraline (Zoloft) 100 MG tablet traZODone (Desyrel) 100 MG tablet Chronic obstructive pulmonary disease, unspecified ([facility]) Current meds: albuterol, trelegy Cannot afford trelegy, but does help breathing #2 samples trelegy: 100/25, XM5N, exp 01/04 Recurrent major depressive disorder, in full remission ([facility]) Current med: wellbutrin, sertralin, and trazodone PHQ 9=9 Primary hypertension ([facility]) Please check blood pressure daily and record [...] Recurrent major 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) ([facility]) Relevant Medications buPROPion XL (Wellbutrin XL) 300 MG 24 hr tablet busPIRone (Buspar) 15 MG tablet sertraline (Zoloft) 100 MG tablet traZODone (Desyrel) 100 MG tablet * Susan Watson NP - 10/08/2024 7:12 AM ESTAssociated Problem(s): Recurrent major depressive disorder, in full remission ([facility]) Current med: wellbutrin, sertralin, and trazodone PHQ 9=9 * Susan Watson NP - 10/08/2024 7:11 AM ESTAssociated Problem(s): Mixed hyperlipidemia ([facility]) On statin and fenofibrate Check labs yearly and prn dose changes * Susan Watson NP - 10/08/2024 7:10 AM ESTAssociated Problem(s): EDITH (generalized anxiety disorder) ([facility]) Current meds: wellbutrin XL, buspar, sertraline, and [...] 10/08/2024 7:08 AM ESTAssociated Problem(s): Primary hypertension (CMS/HCC) Please check blood pressure daily and record DASH diet Limit caffeine Take medication as directed Contact office if chest pain, pressure, dizziness, shortness of breath, swelling legs Recommend slow position changes Current meds: amlodipine, imdur, b kelsy * Susan Watson NP - 10/08/2024 7:07 AM ESTAssociated Problem(s): 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 artery of [place] heart without angina pectoris (CMS/HCC) Current meds: plavix, amlodipine, statin, b kelsy, nitroglycerin prn No acute symptoms, cont with [facility] Cardiology * Susan Watson NP - 10/08/2024 7:06 AM ESTAssociated Problem(s): Chronic obstructive pulmonary disease, unspecified (CMS/HCC) Current meds: albuterol, trelegy Cannot afford trelegy, but does help breathing #2 samples trelegy: 100/25, XM5N, exp 01/04 documented in this [facility]02-27-2025 Instructions* Patient Instructions* Susan Watson NP - 10/08/2024 1:40 PM EST No med dose changes documented in this [facility]01-28-2025 NoteHNO ID: [id number] Author: MISTY POLO, PhD Service: ? Author Type: Psychologist Type: Progress Notes Filed: 09/10/2024 16:35 Note Text: [facility] Department of Neurology Section of Neuropsychology Neuropsychological Evaluation Report CONFIDENTIAL Patient: Samir Castillo Date of : 1955 Referred by: Ebony Black MD (Neurology) Education: 10 Handedness: R Language(s): Citizen Of [place] Date of Evaluation: 09/08/2024 Mr. Castillo is [...] no Problems with mother's /delivery: no Early CHEESE WRAPPER infection, high fever, significant childhood illness: no SCHOOL HISTORY: Years of education completed: 10; left school early because he did not like it. 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 Castillo is [...] no Problems with mother's /delivery: no Early CHEESE WRAPPER infection, high fever, significant childhood illness: no SCHOOL HISTORY: Years of education completed: 10; left school early because he did not like it. 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 Agencies on Aging -- , https://aging.[place].gov/about-us/who-we-are/swox-mevvlsrq-hk-aging Visit your local Senior Center to participate in stimulating activities and socialize with others -https://www.careohio.org/ictz71_mwyq_tsqqvn_ghcjguk.htm He can use strategies to help optimize [...] for Neurodegenerative Delay (MIND) diet, is recommended. 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 Re-evaluation in approximately 18-24 months (or as needed). These results have not been reviewed with the patient, but he will be provided access to this note via [employer]. It has been a pleasure to participate in his care. Please feel free to contact me if you have any questions regarding this report or my recommendations. Misty Polo, PhD, ABPP-CN Board Certified Clinical Neuropsychologist [facility] [place] The purpose of this evaluation was explained [...] = 2 hours Neuropsychological test administration/scoring by air saw operator = 4 hours TESTS ADMINISTERED: Waite Anxiety Inventory, Waite Depression Inventory-2, Mas Judgment of Line Orientation (Form H), [place] Naming Test-2, Brief Visuospatial Memory Test- Revised (Form 2), Clinical Interview, Jessie Chowdhury Executive Function System (Color-Word Interference), Castro Verbal Learning Test-Revised (Form 2), Language Screen, Performance Validity Testing, Gregory Osterrieth Complex Figure Test (Miles System, copy), [place] Making Test (Parts A & B), Verbal Fluency (CFL, Animals/Fruits/Vegetables), Veena Adult Intelligence Scale-IV (Digit Span, Coding, Matrix Reasoning), Veena Memory Scale-IV (Logical Memory), [place] Card Sorting Test - 128 documented in this [facility] History of Present illness Narrative* Jayy Coronado NP - 06/22/2024 11:34 AM ESTAssociated Problem(s): Functional [...] kidney disease) stage 4, GFR 15-29 ml/min ([facility]) Following with Nephrology. Avoid nephrotoxic agents. Continue [...] log back with them to next visit. * Jayy Coronado NP - 06/17/2024 1:00 [...] Addressed This Visit 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 artery of [place] heart without angina pectoris ([facility]) Relevant Medications nitroglycerin (Nitrostat) 0.4 MG SL tablet Other hyperlipidemia ([facility]) Currently taking Atorvastatin 80mg Denies any myalgias. Continue current regimen. CKD (chronic kidney disease) stage 4, GFR 15-29 ml/min ([facility]) Following with Nephrology. Avoid nephrotoxic agents. Continue to monitor. Primary hypertension ([facility]) - Primary Currently taking amlodipine Imdur Metoprolol [...] referral to Physical Therapy [id number] Instructions* Patient Instructions* Jayy Coronado NP - [...] TO THE EMERGENCY ROOM!!! documented in this encounterSaint [facility]'s [id number] History of Present illness Narrative* Claire Vilchis [...] PATIENT PRESENTS WITH AN IMPLANTABLE OR ATTACHED PARK RANGER: No RADIOLOGY DEPARTMENT: CT; Exam(s) Completed: Brain PERIPHERAL IV DATA: Not applicable SIGNED BY: KORY Bolivar May 12, 2024 8:35 AM documented in this encounterOhio [facility]10-[facility]-2024 NoteHNO ID: [id number] Author: CLAIRE VILCHIS CT Service: ? Author Type: Animal Physiologist Type: Progress Notes Filed: 05/12/2024 08:35 Note [...] PATIENT PRESENTS WITH AN IMPLANTABLE OR ATTACHED PARK RANGER: No RADIOLOGY DEPARTMENT: CT; Exam(s) Completed: Brain PERIPHERAL IV DATA: Not applicable SIGNED BY: KORY Bolivar May 12, 2024 8:35 [facility]09-23-2024 Instructions* Patient Instructions* Ebony Trent DO - 05/04/2024 10:[address] scan of brain Physical therapy Follow-up after neuropsych Please do not climb ladders or do other activities for high fall risk. documented in this encounterOhio [facility]09-[facility] History of Present illness Narrative* Ebony Trent DO - 05/04/2024 9:30 AM EDT Images from the original note were not included. [facility] Follow up/ Established patient visit Individuals who were included in, or assisted with the encounter were: Samir Castillo Ebony Black DO Chief Complaint/Issues: Samir Castillo is a 69 year old male seen in the [facility] for: Memory loss Most [...] over medications. 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 MOCA December 2021 [...] 1/2 TABLETS BY MOUTH EVERY DAY omega 5-vwo-qgd-fish oil (FISH OIL) 100-160-1,000 mg cap Take [...] which included preparing to see the patient, [id number]-xz-[id number] patient care, completing clinical documentation, obtaining and/or [...] population and warrants attention documented in this encounterOhio [facility] University [facility]09-23-2024 NoteHNO ID: [id number] Author: EBONY TRENT DO Service: ? Author Type: Physician Type: Progress Notes Filed: 05/04/2024 22:17 Note Text: [facility] Follow up/ Established patient visit Individuals who were included in, or assisted with the encounter were: Samir Castillo Ebony Black DO Chief Complaint/Issues: Samir Castillo is a 69 year old male seen in the [facility] for: Memory loss Most [...] over medications. 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 MOCA December 2021 [...] 50 mg tablet,extended release (more content not included)...[facility]02-08-2024 History of Present illness Narrative* Shaikh Cornelio MD - 09/19/2023 5:35 PM ESTAssociated Problem(s): EDITH (generalized anxiety disorder) (CMS/HCC) Improved now. C/w current regimen. * Shaikh Cornelio MD - 09/19/2023 5:35 PM ESTAssociated Problem(s): Other hyperlipidemia (CMS/HCC) Check Lipid panel. * Shaikh Cornelio MD - 09/19/2023 5:35 PM ESTAssociated Problem(s): Recurrent major 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) ([facility]/HCC) Symptoms improved and well controlled since Zoloft [...] kidney disease) stage 4, GFR 15-29 ml/min ([facility]) Has an appointment with Nephrology. Avoid NSAIDS. C/w current regimen. * Shaikh Cornelio MD - 09/19/2023 5:32 PM ESTAssociated Problem(s): 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 artery of [place] heart without angina pectoris ([facility]) S/p CABG. On ASA, BB, Imdur, plavix, statin Denies CP, SOB, palpitations. Following [facility] cardiology. * Shaikh Cornelio MD - 09/19/2023 1:45 PM EST Subjective Patient ID: Kel Castillo Jr is a 68 y.o. male who presents for Follow-up (MEDS/SHOULDER). Doing well. No active complaints to offer except for left shoulder pain. He is tolerating his medications well. His mood is better with increased dose of Zoloft. Denies CP, SOB, palpitations. He willsee Dr Mgcowan next week to discuss results of MRI [...] in the morning. Take with meals. [DISCONTINUED] Ctbzkehdjyq-Ombmypzzw-Djrglk (Trelegy Ellipta) 100-62.5-25 MCG/ACT aerosol powder Inhale [...] Recurrent major 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) ([facility]) Symptoms improved and well controlled since Zoloft [...] Comprehensive metabolic panel 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 artery of [place] heart without angina pectoris ([facility]) S/p CABG. On ASA, BB, Imdur, plavix, statin Denies CP, SOB, palpitations. Following [facility] cardiology. Relevant Medications aspirin 81 MG EC tablet isosorbide mononitrate ER (Imdur) 60 MG 24 hr tablet metoprolol tartrate (Lopressor) 50 MG tablet clopidogrel (Plavix) 75 MG tablet Other Relevant Orders CBC and differential Comprehensive metabolic panel Other hyperlipidemia ([facility]) Check Lipid panel. Relevant Medications atorvastatin (Lipitor) 80 MG tablet fenofibrate micronized (Antara) 43 MG capsule Other Relevant Orders Lipid panel CKD (chronic kidney disease) stage 4, GFR 15-29 ml/min ([facility]) Has an appointment with Nephrology. Avoid NSAIDS. C/w current regimen. Relevant Orders CBC and differential Comprehensive metabolic panel Protein, urine, random Creatinine, urine, random Gastroesophageal reflux disease without esophagitis Relevant Medications famotidine (Pepcid) 20 MG tablet EDITH (generalized anxiety disorder) ([facility]) Improved now. C/w current regimen. Relevant Medications sertraline (Zoloft) 100 MG tablet traZODone (Desyrel) 100 MG tablet Traumatic complete tear of left rotator cuff - Primary Noted on MRI - following Orthopedics. Patient has a follow up appointment next week and it appears that he will likely need surgery for it. Other Visit Diagnoses Primary hypertension ([facility]) Relevant Medications amLODIPine (Norvasc) 5 MG tablet isosorbide mononitrate ER (Imdur) 60 MG 24 hr tablet metoprolol tartrate (Lopressor) 50 MG tablet Other Relevant Orders CBC and differential Comprehensive metabolic panel Chronic obstructive pulmonary disease, unspecified COPD type ([facility]) Relevant Medications Tpgderwxdoi-Yvhvlqman-Exelvq (Trelegy Ellipta) 100-62.5-25 MCG/ACT aerosol powder No follow-ups on file. documented in this encounterSaint Luke's [id number] Instructions* Patient Instructions* Ebony Kaufman DO - 08/15/2022 4:17 PM EST Please work with your doctor on the sleep apnea and psychiatrist for depression. Follow-up in 6 months. documented in this encounterOhio State University [facility]01-04-2023 History of Present illness Narrative* bEony Kaufman DO - 08/15/2022 3:47 PM EST Images from the original note were not included. [facility] Follow up/ Established patient visit Individuals who were included in, or assisted with the encounter were: Samir Castillo Ebony Kaufman DO Chief Complaint/Issues: Samir Castillo is a 67 year old male seen in the [facility] for: Follow-up Most [...] the same, maybe a bit worse around [place] given the anniversary of his daughter's was [...] AND 1/2 TABLETS BY MOUTH EVERY DAY Fuekybbuwozil-Tarhqqlf-Ektdhj (MULTIVITAMIN 50 PLUS) tab Take 1 tablet by mouth once daily. omega 5-zdu-kqh-fish oil (FISH OIL) 100-160-1,000 mg cap Take [...] which included preparing to see the patient, zhiv-zz-nksg patient care, completing clinical documentation, obtaining and/or reviewing separately obtained history, performing a medically appropriate examination, counseling and educating the pat ient/family/caregiver, and ordering medications, tests, or procedures. Ebony Kaufman DO documented in this encounterOhio State University [facility]11-29-2022 Evaluation note* Encounter Date Diagnosis Assessment Notes [...] mmol/L. 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 documented in this encounterOhio State University [facility]08-30-2022 History of Present illness Narrative* Ebony Kaufman DO - 04/10/2022 10:11 AM EDT Images from the original note were not included. [facility] General Neurology New Patient Evaluation Consulting Provider: Jessie Bright [id number] [facility] [id number] Individuals who were included in, or assisted with the encounter were: Samir aCstillo Ebony Kaufman DO Chief Complaint/Issues: Samir Castillo is a 66 year old male seen in the [facility] for: Memory HPI: [...] notices problems with both short term and nursing home memory Language: yes, word finding problems. Knows [...] AND 1/2 TABLETS BY MOUTH EVERY DAY Hmomldfqvjjyn-Hsmtmczk-Dcpeaw (MULTIVITAMIN 50 PLUS) tab Take 1 tablet by mouth once daily. omega 3-xju-lsk-fish oil (FISH OIL) 100-160-1,000 mg cap Take [...] which included preparing to see the patient, bcbj-an-nfqt patient care, completing clinical documentation, obtaining and/or reviewing separately obtained history, performing a medically appropriate examination, and counseling and educating the patient/family/caregiver. Ebony Kaufman DO documented in this encounterOhio State University [facility]08-02-2022 Evaluation note* Encounter Date Diagnosis Assessment Notes Treatment Notes Treatment Clinical Notes Mar, Depression, major, recurrent, moderate (ICD-10 - F33.1) [facility] Other 07-25-2022 Evaluation note* Encounter Date Diagnosis Assessment Notes Treatment Notes Treatment Clinical Notes Feb, Depression, major, recurrent, moderate (ICD-10 - F33.1) [facility] Other 07-19-2022 Evaluation note* Encounter Date Diagnosis [...] Sleep apnea, unspecified type (ICD-10 - G47.30) [facility] Other 07-01-2022 Miscellaneous Notes* Telephone Encounter - Mariana Luriley - 02/09/2022 1:57 PM EDT Patients daughter Princess notified of message below. Voiced understanding, and was appreciative of call. Roxanne, The MRI does show generalized volume loss [...] Dr. Roche Message text documented in this encounterOhio State University [facility]07-01-2022 History of Present illness Narrative* Brayan Trent CRT - 02/09/2022 10:41 AM EDT PULM FUNCTION SMARTBLOCK: Provider: Prince Aby MD Spirometry w/BD: 1 System: MC9 - [id number] documented in this encounterOhio State University [facility]06-30-2022 History of Present illness Narrative* RT Ed(R) [...] 08, 2022 4:21 PM documented in this encounterOhio State University [facility]06-20-2022 Evaluation note* Encounter Date Diagnosis [...] relief. Also reports that he saw his certified detention deputy recently who does not think that his shortness of breath is related to his heart. He did have an appointment with [place] [facility]ology but has since decided to see pulmonology in [place]. Given his PFT and CT results I [...] with Dr. Hurtado at their upcoming appointment. [facility] Other 05-27-2022 Evaluation note* Encounter Date Diagnosis Assessment Notes Treatment Notes Treatment Clinical Notes December, Obstructive lung disease (ICD-10 - J44.9) December, Pulmonary nodule (ICD-10 - R91.1) [facility] Other 05-23-2022 Evaluation note* Encounter Date Diagnosis Assessment Notes Treatment Notes Treatment Clinical Notes December, Shortness of breath (ICD-10 - R06.02) [facility] Other 05-17-2022 Evaluation note* Encounter Date Diagnosis [...] next month or so we will recheck. [facility] Other 05-13-2022 History of Present illness Narrative* Jessie Bright MD - 12/22/2021 8:41 AM EDT Images from the original note were not included. [facility] General Neurology New Patient Evaluation Consulting Provider: SELF Individuals who were included in, or assisted with the encounter were: Samir Castillo Jessie Bright MD Chief Complaint/Issues: Samir Castillo is a 66 year old male seen in the [facility] for: 1. Memory [...] notices problems with both short term and nursing home memory Language: yes, word finding problems. Knows [...] AND 1/2 TABLETS BY MOUTH EVERY DAY Zwlpgnuzlckcf-Qwxhtlfg-Hsijow (MULTIVITAMIN 50 PLUS) tab Take 1 tablet by mouth once daily. omega 6-kzy-yxb-fish oil (FISH OIL) 100-160-1,000 mg cap Take [...] which included preparing to see the patient, rntc-cy-bvmy patient care, completing clinical documentation and performing a medically appropriate examination. Jessie Bright MD documented in this encounterOhio State University [facility]05-09-2022 Evaluation note* Encounter Date Diagnosis Assessment Notes Treatment Notes Treatment Clinical Notes December, Depression, major, recurrent, moderate (ICD-10 - F33.1) [facility] Other 10-12-2021 Evaluation note* Encounter Date Diagnosis [...] metoprolol. He follow-up with Dr. Rubio, his certified detention deputy in [place]. He stated that his heart looks fine. [...] at home also runs between 140-150 systolic. [place] systolic blood pressure at home should be [...] his PCP Dr. Arellano for lipid profile. 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) Other persistent mental disorders due to conditions classified elsewhere Depression, unspecified depression type documented in this encounter [facility] CenterEvaluwilmington hospital note* Diagnosis Shortness of breath documented [facility] this encounter [facility]* Diagnosis Recurrent major 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)- Primary Major depressive disorder, recurrent episode, in partial or unspecified remission MCI (mild cognitive impairment) Mild cognitive impairment, so stated documented in this encounter [facility] noteNo assessment information [facility] Work Phone: Evaluation note* Diagnosis MCI (mild cognitive impairment)- Primary Mild cognitive impairment, so stated documented in this encounter [facility] noteNort [employer] Other Evaluation note* Diagnosis Traumatic complete tear of left rotator cuff, subsequent encounter- Primary Recurrent major 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) ([facility]CC) Major depressive disorder, recurrent episode, in partial or unspecified remission Other hyperlipidemia ([facility]/HCC) EDITH (generalized anxiety disorder) ([facility]) Generalized anxiety disorder CKD (chronic kidney disease) stage 4, GFR 15-29 ml/min ([facility]/HCC) Chronic kidney disease, Stage IV (severe) Gastroesophageal reflux disease without esophagitis Esophageal reflux 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 artery of [place] heart without angina pectoris ([facility]) Primary hypertension ([facility]/HCC) Unspecified essential hypertension Chronic obstructive pulmonary disease, unspecified COPD type ([facility]/HCC) documented [facility] this encounter [facility]* Diagnosis Onset Date Resolution Status Anemia acute CAD (coronary artery disease) of artery bypass graft acute Chronic kidney disease, stage 3b acute Hyperkalemia acute Hyperlipemia acute [id number] [facility] Work Phone: Evaluation note* Diagnosis Dyspnea and respiratory abnormalities- Primary Other dyspnea and respiratory abnormality Centrilobular emphysema (HCC) Other emphysema Class 1 obesity due to excess calories with serious comorbidity and body mass index (BMI) of 32.0 to 32.9 in adult Sleep-disordered breathing Other sleep disturbances Memory loss- Primary Abnormality of gait documented in this encounter [facility] note* Diagnosis Dyspnea and respiratory abnormalities- Primary Other dyspnea and respiratory abnormality Centrilobular emphysema (HCC) Other emphysema Class 1 obesity due to excess calories with serious comorbidity and body mass index (BMI) of 32.0 to 32.9 in adult Sleep-disordered breathing Other sleep disturbances Memory loss documented in this encounter [facility]* Diagnosis Traumatic complete tear of left rotator cuff, subsequent encounter- Primary Recurrent major 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) ([facility]) Major depressive disorder, recurrent episode, in partial or unspecified remission Other hyperlipidemia ([facility]) EDITH (generalized anxiety disorder) ([facility]) Generalized anxiety disorder CKD (chronic kidney disease) stage 4, GFR 15-29 ml/min ([facility]/HCC) Chronic kidney disease, Stage IV (severe) Gastroesophageal reflux disease without esophagitis Esophageal reflux 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 artery of [place] heart without angina pectoris ([facility]) Primary hypertension ([facility]) Unspecified essential hypertension Chronic obstructive pulmonary disease, unspecified COPD type ([facility]) Chronic obstructive pulmonary disease, unspecified COPD type ([facility])- Primary 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 artery of [place] heart without angina pectoris ([facility]) CKD (chronic kidney disease) stage 4, GFR 15-29 ml/min ([facility]) Chronic kidney disease, Stage IV (severe) Gastroesophageal reflux disease without esophagitis Esophageal reflux Recurrent major depressive disorder, in full remission ([facility]) Other hyperlipidemia ([facility]) EDITH (generalized anxiety disorder) ([facility]) Generalized anxiety disorder Recurrent major 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) ([facility]) Major depressive disorder, recurrent episode, in partial or unspecified remission Primary hypertension ([facility]) Unspecified essential hypertension Primary hypertension ([facility])- Primary Unspecified essential hypertension Other hyperlipidemia ([facility]) 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 artery of [place] heart without angina pectoris ([facility]) Frequent falls Functional gait abnormality CKD (chronic kidney disease) stage 4, GFR 15-29 ml/min ([facility]CC) Chronic kidney disease, Stage IV (severe) [facility] this encounter [facility]* Diagnosis Traumatic complete tear of left rotator cuff, subsequent encounter- Primary Recurrent major 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) ([facility]) Major depressive disorder, recurrent episode, in partial or unspecified remission Other hyperlipidemia ([facility]) EDITH (generalized anxiety disorder) ([facility]) Generalized anxiety disorder CKD (chronic kidney disease) stage 4, GFR 15-29 ml/min ([facility]) Chronic kidney disease, Stage IV (severe) Gastroesophageal reflux disease without esophagitis Esophageal reflux 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 artery of [place] heart without angina pectoris ([facility]) Primary hypertension ([facility]) Unspecified essential hypertension Chronic obstructive pulmonary disease, unspecified COPD type ([facility]) Chronic obstructive pulmonary disease, unspecified COPD type ([facility])- Primary 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 artery of [place] heart without angina pectoris ([facility]) CKD (chronic kidney disease) stage 4, GFR 15-29 ml/min ([facility]) Chronic kidney disease, Stage IV (severe) Gastroesophageal reflux disease without esophagitis Esophageal reflux Recurrent major depressive disorder, in full remission ([facility]) Other hyperlipidemia ([facility]) EDITH (generalized anxiety disorder) ([facility]) Generalized anxiety disorder Recurrent major 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) ([facility]) Major depressive disorder, recurrent episode, in partial or unspecified remission Primary hypertension ([facility] Unspecified essential hypertension Primary hypertension ([facility])- Primary Unspecified essential hypertension Other hyperlipidemia ([facility]) 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 artery of [place] heart without angina pectoris ([facility]) Frequent falls Functional gait abnormality CKD (chronic kidney disease) stage 4, GFR 15-29 ml/min ([facility]) Chronic kidney disease, Stage IV (severe) Recurrent major 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) ([facility]) Major depressive disorder, recurrent episode, in partial or unspecified remission documented in this encounter [facility] HealthcareEvaluation note* Diagnosis Gastroesophageal reflux disease without esophagitis Esophageal reflux Recurrent major 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) ([facility]) Major depressive disorder, recurrent episode, in partial or unspecified remission documented in this encounter [facility] HealthcareEvaluation note* Diagnosis Dyspnea and respiratory abnormalities- [...] type, unspecified whether angina present, unspecified whether [place] or transplanted heart Complaints of memory disturbance Memory loss [facility] Diagnosis Traumatic complete tear of left rotator cuff, subsequent encounter- Primary Recurrent major 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) ([facility]) Major depressive disorder, recurrent episode, in partial or unspecified remission Other hyperlipidemia ([facility]) EDITH (generalized anxiety disorder) ([facility]) Generalized anxiety disorder CKD (chronic kidney disease) stage 4, GFR 15-29 ml/min ([facility]) Chronic kidney disease, Stage IV (severe) Gastroesophageal reflux disease without esophagitis Esophageal reflux 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 artery of [place] heart without angina pectoris ([facility]) Primary hypertension ([facility]) Unspecified essential hypertension Chronic obstructive pulmonary disease, unspecified COPD type ([facility]) Chronic obstructive pulmonary disease, unspecified COPD type ([facility])- Primary 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 artery of [place] heart without angina pectoris ([facility]) CKD (chronic kidney disease) stage 4, GFR 15-29 ml/min ([facility]) Chronic kidney disease, Stage IV (severe) Gastroesophageal reflux disease without esophagitis Esophageal reflux Recurrent major depressive disorder, in full remission ([facility]) Other hyperlipidemia ([facility]) EDITH (generalized anxiety disorder) ([facility] Generalized anxiety disorder Recurrent major 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) ([facility]) Major depressive disorder, recurrent episode, in partial or unspecified remission Primary hypertension ([facility]) Unspecified essential hypertension Primary hypertension ([facility])- Primary Unspecified essential hypertension Other hyperlipidemia ([facility]) 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 artery of [place] heart without angina pectoris ([facility]) Frequent falls Functional gait abnormality CKD (chronic kidney disease) stage 4, GFR 15-29 ml/min ([facility]) Chronic kidney disease, Stage IV (severe) Primary hypertension ([facility])- Primary Unspecified essential hypertension Chronic obstructive pulmonary disease, unspecified COPD type ([facility]) Chronic kidney disease, stage 4 (severe) ([facility]) 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 artery of [place] heart without angina pectoris ([facility]) Gastroesophageal reflux disease without esophagitis Esophageal reflux EDITH (generalized anxiety disorder) ([facility]) Generalized anxiety disorder Recurrent major depressive disorder, in full remission ([facility]) Mixed hyperlipidemia ([facility]) Mixed hyperlipidemia MCI (mild cognitive impairment) Mild cognitive impairment, so stated Other hyperlipidemia ([facility]) Recurrent major 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) ([facility]) Major depressive disorder, recurrent episode, in partial or unspecified remission [facility] Dyspnea and respiratory abnormalities- Primary Other dyspnea and respiratory abnormality Centrilobular emphysema (HCC) Other emphysema Class 1 obesity due to excess calories with serious comorbidity and body mass index (BMI) of 32.0 to 32.9 in adult Sleep-disordered breathing Other sleep disturbances Gait abnormality- Primary Abnormality of gait Memory loss Neck pain Cervicalgia [facility] Onset Date Resolution Status Admit [...] stage 4 chronic ki acute October 27, 025 3:58pm [facility] Work Phone: Evaluation note* Diagnosis Traumatic complete tear of left rotator cuff, subsequent encounter- Primary Recurrent major 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) ([facility]) Major depressive disorder, recurrent episode, in partial or unspecified remission Other hyperlipidemia EDITH (generalized anxiety disorder) ([facility]) Generalized anxiety disorder CKD (chronic kidney disease) stage 4, GFR 15-29 ml/min ([facility]/HCC) Chronic kidney disease, Stage IV (severe) Gastroesophageal reflux disease without esophagitis Esophageal reflux 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 artery of [place] heart without angina pectoris ([facility]) Primary hypertension ([facility]) Unspecified essential hypertension Chronic obstructive pulmonary disease, unspecified COPD type ([facility]) Chronic obstructive pulmonary disease, unspecified COPD type ([facility])- Primary 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 artery of [place] heart without angina pectoris ([facility]) CKD (chronic kidney disease) stage 4, GFR 15-29 ml/min ([facility]/HCC) Chronic kidney disease, Stage IV (severe) Gastroesophageal reflux disease without esophagitis Esophageal reflux Recurrent major depressive disorder, in full remission (CMS/HCC) Other hyperlipidemia EDITH (generalized anxiety disorder) ([facility]) Generalized anxiety disorder Recurrent major 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) ([facility]) Major depressive disorder, recurrent episode, in partial or unspecified remission Primary hypertension ([facility]) Unspecified essential hypertension Primary hypertension ([facility])- Primary Unspecified essential hypertension Other hyperlipidemia 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 artery of [place] heart without angina pectoris ([facility]) Frequent falls Functional gait abnormality CKD (chronic kidney disease) stage 4, GFR 15-29 ml/min ([facility]) Chronic kidney disease, Stage IV (severe) Primary hypertension ([facility])- Primary Unspecified essential hypertension Chronic obstructive pulmonary disease, unspecified COPD type ([facility]) Chronic kidney disease, stage 4 (severe) ([facility]) 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 artery of [place] heart without angina pectoris ([facility]) Gastroesophageal reflux disease without esophagitis Esophageal reflux EDITH (generalized anxiety disorder) ([facility]) Generalized anxiety disorder Recurrent major depressive disorder, in full remission ([facility]) Mixed hyperlipidemia ([facility]) Mixed hyperlipidemia MCI (mild cognitive impairment) Mild cognitive impairment, so stated Other hyperlipidemia Recurrent major 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) ([facility]) Major depressive disorder, recurrent episode, in partial or unspecified remission Other hyperlipidemia EDITH (generalized anxiety disorder) ([facility]) Generalized anxiety disorder Recurrent major 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) ([facility]) Major depressive disorder, recurrent episode, in partial or unspecified remission documented in this encounter [facility] HealthcareEvaluation [facility]* Diagnosis Traumatic complete tear of left rotator cuff, subsequent encounter- Primary Recurrent major 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) ([facility]) Major depressive disorder, recurrent episode, in partial or unspecified remission Other hyperlipidemia EDITH (generalized anxiety disorder) ([facility]) Generalized anxiety disorder CKD (chronic kidney disease) stage 4, GFR 15-29 ml/min ([facility]) Chronic kidney disease, Stage IV (severe) Gastroesophageal reflux disease without esophagitis Esophageal reflux 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 artery of [place] heart without angina pectoris ([facility]) Primary hypertension ([facility]) Unspecified essential hypertension Chronic obstructive pulmonary disease, unspecified COPD type ([facility]) Chronic obstructive pulmonary disease, unspecified COPD type ([facility])- Primary 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 artery of [place] heart without angina pectoris ([facility]) CKD (chronic kidney disease) stage 4, GFR 15-29 ml/min ([facility]) Chronic kidney disease, Stage IV (severe) Gastroesophageal reflux disease without esophagitis Esophageal reflux Recurrent major depressive disorder, in full remission ([facility]) Other hyperlipidemia EDITH (generalized anxiety disorder) ([facility] Generalized anxiety disorder Recurrent major 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) ([facility]) Major depressive disorder, recurrent episode, in partial or unspecified remission Primary hypertension ([facility] Unspecified essential hypertension Primary hypertension ([facility])- Primary Unspecified essential hypertension Other hyperlipidemia 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 artery of [place] heart without angina pectoris ([facility]) Frequent falls Functional gait abnormality CKD (chronic kidney disease) stage 4, GFR 15-29 ml/min ([facility]) Chronic kidney disease, Stage IV (severe) Primary hypertension ([facility])- Primary Unspecified essential hypertension Chronic obstructive pulmonary disease, unspecified COPD type ([facility]) Chronic kidney disease, stage 4 (severe) ([facility]) 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 artery of [place] heart without angina pectoris ([facility]) Gastroesophageal reflux disease without esophagitis Esophageal reflux EDITH (generalized anxiety disorder) ([facility]) Generalized anxiety disorder Recurrent major depressive disorder, in full remission ([facility]) Mixed hyperlipidemia ([facility]) Mixed hyperlipidemia MCI (mild cognitive impairment) Mild cognitive impairment, so stated Other hyperlipidemia Recurrent major 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) ([facility]) Major depressive disorder, recurrent episode, in partial or unspecified remission Primary hypertension ([facility]) Unspecified essential hypertension Other hyperlipidemia Recurrent major 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) ([facility]) Major depressive disorder, recurrent episode, in partial or unspecified remission 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 artery of [place] heart without angina pectoris ([facility]) Gastroesophageal reflux disease without esophagitis Esophageal reflux EDITH (generalized anxiety disorder) ([facility]) Generalized anxiety disorder documented in this encounter [facility] Healthcare[facility]* Diagnosis Traumatic complete tear of left rotator cuff, subsequent encounter- Primary Recurrent major 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) ([facility]) Major depressive disorder, recurrent episode, in partial or unspecified remission Other hyperlipidemia EDITH (generalized anxiety disorder) ([facility]) Generalized anxiety disorder CKD (chronic kidney disease) stage 4, GFR 15-29 ml/min ([facility]) Chronic kidney disease, Stage IV (severe) Gastroesophageal reflux disease without esophagitis Esophageal reflux 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 artery of [place] heart without angina pectoris ([facility]) Primary hypertension ([facility]) Unspecified essential hypertension Chronic obstructive pulmonary disease, unspecified COPD type ([facility]) Chronic obstructive pulmonary disease, unspecified COPD type ([facility])- Primary 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 artery of [place] heart without angina pectoris ([facility]) CKD (chronic kidney disease) stage 4, GFR 15-29 ml/min ([facility]) Chronic kidney disease, Stage IV (severe) Gastroesophageal reflux disease without esophagitis Esophageal reflux Recurrent major depressive disorder, in full remission ([facility]) Other hyperlipidemia EDITH (generalized anxiety disorder) ([facility]) Generalized anxiety disorder Recurrent major 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) ([facility]) Major depressive disorder, recurrent episode, in partial or unspecified remission Primary hypertension ([facility] Unspecified essential hypertension Primary hypertension ([facility])- Primary Unspecified essential hypertension Other hyperlipidemia 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 artery of [place] heart without angina pectoris ([facility]) Frequent falls Functional gait abnormality CKD (chronic kidney disease) stage 4, GFR 15-29 ml/min ([facility]) Chronic kidney disease, Stage IV (severe) Primary hypertension ([facility])- Primary Unspecified essential hypertension Chronic obstructive pulmonary disease, unspecified COPD type ([facility]) Chronic kidney disease, stage 4 (severe) ([facility]) 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 artery of [place] heart without angina pectoris ([facility]) Gastroesophageal reflux disease without esophagitis Esophageal reflux EDITH (generalized anxiety disorder) ([facility]) Generalized anxiety disorder Recurrent major depressive disorder, in full remission ([facility]) Mixed hyperlipidemia ([facility]) Mixed hyperlipidemia MCI (mild cognitive impairment) Mild cognitive impairment, so stated Other hyperlipidemia Recurrent major 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) ([facility] Major depressive disorder, recurrent episode, in partial or unspecified remission Neck pain- Primary Cervicalgia Primary hypertension ([facility]) Unspecified essential hypertension Chronic kidney disease, stage 4 (severe) ([facility]) EDITH (generalized anxiety disorder) ([facility]) Generalized anxiety disorder Functional gait abnormality MCI (mild cognitive impairment) Mild cognitive impairment, so stated documented in this encounter [facility]* Diagnosis Traumatic complete tear of left rotator cuff, subsequent encounter- Primary Recurrent major 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) ([facility]) Major depressive disorder, recurrent episode, in partial or unspecified remission Other hyperlipidemia EDITH (generalized anxiety disorder) ([facility]) Generalized anxiety disorder CKD (chronic kidney disease) stage 4, GFR 15-29 ml/min ([facility]) Chronic kidney disease, Stage IV (severe) Gastroesophageal reflux disease without esophagitis Esophageal reflux 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 artery of [place] heart without angina pectoris ([facility]) Primary hypertension ([facility]) Unspecified essential hypertension Chronic obstructive pulmonary disease, unspecified COPD type ([facility]) Chronic obstructive pulmonary disease, unspecified COPD type ([facility])- Primary 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 artery of [place] heart without angina pectoris ([facility]) CKD (chronic kidney disease) stage 4, GFR 15-29 ml/min ([facility]) Chronic kidney disease, Stage IV (severe) Gastroesophageal reflux disease without esophagitis Esophageal reflux Recurrent major depressive disorder, in full remission ([facility]) Other hyperlipidemia EDITH (generalized anxiety disorder) ([facility]) Generalized anxiety disorder Recurrent major 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) ([facility] Major depressive disorder, recurrent episode, in partial or unspecified remission Primary hypertension ([facility]) Unspecified essential hypertension Primary hypertension [place] [place] Primary Unspecified essential hypertension Other hyperlipidemia 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 artery of [place] heart without angina pectoris ([facility]) Frequent falls Functional gait abnormality CKD (chronic kidney disease) stage 4, GFR 15-29 ml/min ([facility]) Chronic kidney disease, Stage IV (severe) Primary hypertension ([facility])- Primary Unspecified essential hypertension Chronic obstructive pulmonary disease, unspecified COPD type ([facility]) Chronic kidney disease, stage 4 (severe) [place] [place] 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 artery of [place] heart without angina pectoris ([facility]) Gastroesophageal reflux disease without esophagitis Esophageal reflux EDITH (generalized anxiety disorder) ([facility]) Generalized anxiety disorder Recurrent major depressive disorder, in full remission ([facility]) Mixed hyperlipidemia ([facility]) Mixed hyperlipidemia MCI (mild cognitive impairment) Mild cognitive impairment, so stated Other hyperlipidemia Recurrent major 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) ([facility] [place] Major depressive disorder, recurrent episode, in partial or unspecified remission Neck pain- Primary Cervicalgia Primary hypertension ([facility]) Unspecified essential hypertension Chronic kidney disease, stage 4 (severe) ([facility]) EDITH (generalized anxiety disorder) ([facility]) Generalized anxiety disorder Functional gait abnormality MCI (mild cognitive impairment) Mild cognitive impairment, so stated EDITH (generalized anxiety disorder) ([facility])- Primary Generalized anxiety disorder documented in this encounter [facility] Diagnosis Traumatic complete tear of left rotator cuff, subsequent encounter- Primary Recurrent major 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) ([facility]) Major depressive disorder, recurrent episode, in partial or unspecified remission Other hyperlipidemia EDITH (generalized anxiety disorder) ([facility]) Generalized anxiety disorder CKD (chronic kidney disease) stage 4, GFR 15-29 ml/min ([facility]) Chronic kidney disease, Stage IV (severe) Gastroesophageal reflux disease without esophagitis Esophageal reflux 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 artery of [place] heart without angina pectoris ([facility]) Primary hypertension ([facility]) Unspecified essential hypertension Chronic obstructive pulmonary disease, unspecified COPD type ([facility]) Chronic obstructive pulmonary disease, unspecified COPD type ([facility])- Primary 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 artery of [place] heart without angina pectoris ([facility]) CKD (chronic kidney disease) stage 4, GFR 15-29 ml/min ([facility]) Chronic kidney disease, Stage IV (severe) Gastroesophageal reflux disease without esophagitis Esophageal reflux Recurrent major depressive disorder, in full remission ([facility]) Other hyperlipidemia EDITH (generalized anxiety disorder) ([facility] Generalized anxiety disorder Recurrent major 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) ([facility]) Major depressive disorder, recurrent episode, in partial or unspecified remission Primary hypertension ([facility] Unspecified essential hypertension Primary hypertension ([facility])- Primary Unspecified essential hypertension Other hyperlipidemia 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 artery of [place] heart without angina pectoris ([facility]) Frequent falls Functional gait abnormality CKD (chronic kidney disease) stage 4, GFR 15-29 ml/min ([facility]) Chronic kidney disease, Stage IV (severe) Primary hypertension ([facility])- Primary Unspecified essential hypertension Chronic obstructive pulmonary disease, unspecified COPD type ([facility]) Chronic kidney disease, stage 4 (severe) ([facility]) 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 artery of [place] heart without angina pectoris ([facility]) Gastroesophageal reflux disease without esophagitis Esophageal reflux EDITH (generalized anxiety disorder) ([facility]) Generalized anxiety disorder Recurrent major depressive disorder, in full remission ([facility]) Mixed hyperlipidemia ([facility]) Mixed hyperlipidemia MCI (mild cognitive impairment) Mild cognitive impairment, so stated Other hyperlipidemia Recurrent major 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) ([facility]) Major depressive disorder, recurrent episode, in partial or unspecified remission Neck pain- Primary Cervicalgia Primary hypertension ([facility]) Unspecified essential hypertension Chronic kidney disease, stage 4 (severe) ([facility]) EDITH (generalized anxiety disorder) ([facility]) Generalized anxiety disorder Functional gait abnormality MCI (mild cognitive impairment) Mild cognitive impairment, so stated Other hyperlipidemia 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 artery of [place] heart without angina pectoris ([facility] Primary hypertension ([facility] Unspecified essential hypertension Recurrent major 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) ([facility]) Major depressive disorder, recurrent episode, in partial or unspecified remission EDITH (generalized anxiety disorder) ([facility]) Generalized anxiety disorder documented in this encounter [facility]* Diagnosis Traumatic complete tear of left rotator cuff, subsequent encounter- Primary Recurrent major 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) ([facility]) Major depressive disorder, recurrent episode, in partial or unspecified remission Other hyperlipidemia EDITH (generalized anxiety disorder) ([facility]) Generalized anxiety disorder CKD (chronic kidney disease) stage 4, GFR 15-29 ml/min ([facility]) Chronic kidney disease, Stage IV (severe) Gastroesophageal reflux disease without esophagitis Esophageal reflux 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 artery of [place] heart without angina pectoris ([facility]) Primary hypertension ([facility]) Unspecified essential hypertension Chronic obstructive pulmonary disease, unspecified COPD type ([facility]) Chronic obstructive pulmonary disease, unspecified COPD type ([facility])- Primary 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 artery of [place] heart without angina pectoris ([facility]) CKD (chronic kidney disease) stage 4, GFR 15-29 ml/min ([facility]) Chronic kidney disease, Stage IV (severe) Gastroesophageal reflux disease without esophagitis Esophageal reflux Recurrent major depressive disorder, in full remission ([facility]) Other hyperlipidemia EDITH (generalized anxiety disorder) ([facility]) Generalized anxiety disorder Recurrent major 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) ([facility]) Major depressive disorder, recurrent episode, in partial or unspecified remission Primary hypertension ([facility] Unspecified essential hypertension Primary hypertension ([facility])- Primary Unspecified essential hypertension Other hyperlipidemia 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 artery of [place] heart without angina pectoris ([facility]) Frequent falls Functional gait abnormality CKD (chronic kidney disease) stage 4, GFR 15-29 ml/min ([facility]) Chronic kidney disease, Stage IV (severe) Primary hypertension ([facility])- Primary Unspecified essential hypertension Chronic obstructive pulmonary disease, unspecified COPD type ([facility]) Chronic kidney disease, stage 4 (severe) ([facility]) 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 artery of [place] heart without angina pectoris ([facility]) Gastroesophageal reflux disease without esophagitis Esophageal reflux EDITH (generalized anxiety disorder) ([facility]) Generalized anxiety disorder Recurrent major depressive disorder, in full remission ([facility]) Mixed hyperlipidemia ([facility]) Mixed hyperlipidemia MCI (mild cognitive impairment) Mild cognitive impairment, so stated Other hyperlipidemia Recurrent major 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) ([facility]) Major depressive disorder, recurrent episode, in partial or unspecified remission Neck pain- Primary Cervicalgia Primary hypertension ([facility] [place] Unspecified essential hypertension Chronic kidney disease, stage 4 (severe) ([facility]) EDITH (generalized anxiety disorder) ([facility]) Generalized anxiety disorder Functional gait abnormality MCI (mild cognitive impairment) Mild cognitive impairment, so stated Primary hypertension ([facility] [place] Unspecified essential hypertension Other hyperlipidemia Neck pain Cervicalgia Recurrent major 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) ([facility] [place] Major depressive disorder, recurrent episode, in partial or unspecified remission 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 artery of [place] heart without angina pectoris ([facility]) Gastroesophageal reflux disease without esophagitis Esophageal reflux Chronic obstructive pulmonary disease, unspecified COPD type ([facility]) EDITH (generalized anxiety disorder) ([facility]) Generalized anxiety disorder documented in this encounter [facility]* Diagnosis Traumatic complete tear of left rotator cuff, subsequent encounter- Primary Recurrent major 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) ([facility]) Major depressive disorder, recurrent episode, in partial or unspecified remission Other hyperlipidemia EDITH (generalized anxiety disorder) ([facility]) Generalized anxiety disorder CKD (chronic kidney disease) stage 4, GFR 15-29 ml/min ([facility]) Chronic kidney disease, Stage IV (severe) Gastroesophageal reflux disease without esophagitis Esophageal reflux 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 artery of [place] heart without angina pectoris ([facility]) Primary hypertension ([facility]) Unspecified essential hypertension Chronic obstructive pulmonary disease, unspecified COPD type ([facility]) Chronic obstructive pulmonary disease, unspecified COPD type ([facility])- Primary 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 artery of [place] heart without angina pectoris ([facility]) CKD (chronic kidney disease) stage 4, GFR 15-29 ml/min ([facility]) Chronic kidney disease, Stage IV (severe) Gastroesophageal reflux disease without esophagitis Esophageal reflux Recurrent major depressive disorder, in full remission ([facility]) Other hyperlipidemia EDITH (generalized anxiety disorder) ([facility] Generalized anxiety disorder Recurrent major 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) ([facility]) Major depressive disorder, recurrent episode, in partial or unspecified remission Primary hypertension ([facility] Unspecified essential hypertension Primary hypertension ([facility])- Primary Unspecified essential hypertension Other hyperlipidemia 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 artery of [place] heart without angina pectoris ([facility]) Frequent falls Functional gait abnormality CKD (chronic kidney disease) stage 4, GFR 15-29 ml/min ([facility]) Chronic kidney disease, Stage IV (severe) Primary hypertension ([facility])- Primary Unspecified essential hypertension Chronic obstructive pulmonary disease, unspecified COPD type ([facility]) Chronic kidney disease, stage 4 (severe) ([facility]) 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 artery of [place] heart without angina pectoris ([facility]) Gastroesophageal reflux disease without esophagitis Esophageal reflux EDITH (generalized anxiety disorder) ([facility]) Generalized anxiety disorder Recurrent major depressive disorder, in full remission ([facility]) Mixed hyperlipidemia ([facility]) Mixed hyperlipidemia MCI (mild cognitive impairment) Mild cognitive impairment, so stated Other hyperlipidemia Recurrent major 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) ([facility]) Major depressive disorder, recurrent episode, in partial or unspecified remission Neck pain- Primary Cervicalgia Primary hypertension ([facility]) Unspecified essential hypertension Chronic kidney disease, stage 4 (severe) ([facility]) EDITH (generalized anxiety disorder) ([facility]) Generalized anxiety disorder Functional gait abnormality MCI (mild cognitive impairment) Mild cognitive impairment, so stated Neck pain- Primary Cervicalgia documented in this encounter [facility]* Diagnosis Traumatic complete tear of left rotator cuff, subsequent encounter- Primary Recurrent major 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) ([facility]) Major depressive disorder, recurrent episode, in partial or unspecified remission Other hyperlipidemia EDITH (generalized anxiety disorder) ([facility]) Generalized anxiety disorder CKD (chronic kidney disease) stage 4, GFR 15-29 ml/min ([facility]) Chronic kidney disease, Stage IV (severe) Gastroesophageal reflux disease without esophagitis Esophageal reflux 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 artery of [place] heart without angina pectoris ([facility]) Primary hypertension ([facility]) Unspecified essential hypertension Chronic obstructive pulmonary disease, unspecified COPD type ([facility]) Chronic obstructive pulmonary disease, unspecified COPD type ([facility])- Primary 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 artery of [place] heart without angina pectoris ([facility]) CKD (chronic kidney disease) stage 4, GFR 15-29 ml/min ([facility]) Chronic kidney disease, Stage IV (severe) Gastroesophageal reflux disease without esophagitis Esophageal reflux Recurrent major depressive disorder, in full remission ([facility]) Other hyperlipidemia EDITH (generalized anxiety disorder) ([facility]) Generalized anxiety disorder Recurrent major 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) ([facility] [place] Major depressive disorder, recurrent episode, in partial or unspecified remission Primary hypertension ([facility]) Unspecified essential hypertension Primary hypertension ([facility])- Primary Unspecified essential hypertension Other hyperlipidemia 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 artery of [place] heart without angina pectoris ([facility]) Frequent falls Functional gait abnormality CKD (chronic kidney disease) stage 4, GFR 15-29 ml/min ([facility]) Chronic kidney disease, Stage IV (severe) Primary hypertension ([facility])- Primary Unspecified essential hypertension Chronic obstructive pulmonary disease, unspecified COPD type ([facility]) Chronic kidney disease, stage 4 (severe) ([facility] [place] 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 artery of [place] heart without angina pectoris ([facility]) Gastroesophageal reflux disease without esophagitis Esophageal reflux EDITH (generalized anxiety disorder) ([facility] [place]) Generalized anxiety disorder Recurrent major depressive disorder, in full remission ([facility]) Mixed hyperlipidemia ([facility]) Mixed hyperlipidemia MCI (mild cognitive impairment) Mild cognitive impairment, so stated Other hyperlipidemia Recurrent major 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) ([facility] [place] Major depressive disorder, recurrent episode, in partial or unspecified remission Neck pain- Primary Cervicalgia Primary hypertension ([facility]) Unspecified essential hypertension Chronic kidney disease, stage 4 (severe) ([facility]) EDITH (generalized anxiety disorder) ([facility] [place] Generalized anxiety disorder Functional gait abnormality MCI (mild cognitive impairment) Mild cognitive impairment, so stated Cervical spondylosis- Primary Cervical spondylosis without myelopathy Neck pain Cervicalgia Primary hypertension ([facility] [facility]) Unspecified essential hypertension Chronic kidney disease, stage 4 (severe) ([facility] EDITH (generalized anxiety disorder) ([facility] Generalized anxiety disorder H/O: lung cancer Personal history of malignant neoplasm of bronchus and lung MCI (mild cognitive impairment) Mild cognitive impairment, so stated [facility] Diagnosis Cervical spondylosis- Primary Cervical spondylosis without myelopathy Cervical spondylosis- Primary Cervical spondylosis without myelopathy Cervical spondylosis Cervical spondylosis without myelopathy [facility] Diagnosis Traumatic complete tear of left rotator cuff, subsequent encounter- Primary Recurrent major depression in partial remission Major depressive disorder, recurrent episode, in partial or unspecified remission Other hyperlipidemia EDITH (generalized anxiety disorder) Generalized anxiety disorder CKD (chronic kidney disease) stage 4, GFR 15-29 ml/min ([facility]) Chronic kidney disease, Stage IV (severe) Gastroesophageal reflux disease without esophagitis Esophageal reflux 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 artery of [place] heart without angina pectoris Primary hypertension Unspecified essential hypertension Chronic obstructive pulmonary disease, unspecified COPD type ([facility]) Chronic obstructive pulmonary disease, unspecified COPD type ([facility])- Primary 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 artery of [place] heart without angina pectoris CKD (chronic kidney disease) stage 4, GFR 15-29 ml/min ([facility]) Chronic kidney disease, Stage IV (severe) Gastroesophageal reflux disease without esophagitis Esophageal reflux Recurrent major depressive disorder, in full remission Other hyperlipidemia EDITH (generalized anxiety disorder) Generalized anxiety disorder Recurrent major depression in partial remission Major depressive disorder, recurrent episode, in partial or unspecified remission Primary hypertension Unspecified essential hypertension Primary hypertension- Primary Unspecified essential hypertension Other hyperlipidemia 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 artery of [place] heart without angina pectoris Frequent falls Functional gait abnormality CKD (chronic kidney disease) stage 4, GFR 15-29 ml/min ([facility]) Chronic kidney disease, Stage IV (severe) Primary hypertension- Primary Unspecified essential hypertension Chronic obstructive pulmonary disease, unspecified COPD type ([facility]) Chronic kidney disease, stage 4 (severe) ([facility]) 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 artery of [place] heart without angina pectoris Gastroesophageal reflux disease without esophagitis Esophageal reflux EDITH (generalized anxiety disorder) Generalized anxiety disorder Recurrent major depressive disorder, in full remission Mixed hyperlipidemia Mixed hyperlipidemia MCI (mild cognitive impairment) Mild cognitive impairment, so stated Other hyperlipidemia Recurrent major depression in partial remission Major depressive disorder, recurrent episode, in partial or unspecified remission Neck pain- Primary Cervicalgia Primary hypertension Unspecified essential hypertension Chronic kidney disease, stage 4 (severe) ([facility]) EDITH (generalized anxiety disorder) Generalized anxiety disorder Functional gait abnormality MCI (mild cognitive impairment) Mild cognitive impairment, so stated Cervical spondylosis- Primary Cervical spondylosis without myelopathy Neck pain Cervicalgia Primary hypertension Unspecified essential hypertension Chronic kidney disease, stage 4 (severe) (HCC) EDITH (generalized anxiety disorder) Generalized anxiety disorder H/O: lung cancer Personal history of malignant neoplasm of bronchus and lung MCI (mild cognitive impairment) Mild cognitive impairment, so stated Cervical spondylosis- Primary Cervical spondylosis without myelopathy Chronic diastolic heart failure (HCC) Chronic diastolic heart failure Primary hypertension Unspecified essential hypertension 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 artery of [place] heart without angina pectoris Chronic kidney disease, stage 4 (severe) (HCC) Pulmonary hypertension (HCC) Other chronic pulmonary heart diseases EDITH (generalized anxiety disorder) Generalized anxiety disorder Other hyperlipidemia Neck pain Cervicalgia Recurrent major depression in partial remission Major depressive disorder, recurrent episode, in partial or unspecified remission Gastroesophageal reflux disease without esophagitis Esophageal reflux Chronic obstructive pulmonary disease, unspecified COPD type (HCC) [facility] Diagnosis Cervical spondylosis- Primary Cervical spondylosis without myelopathy [facility] Diagnosis Dyspnea and respiratory abnormalities- Primary Other dyspnea and respiratory abnormality Centrilobular emphysema (HCC) Other emphysema Class 1 obesity due to excess calories with serious comorbidity and body mass index (BMI) of 32.0 to 32.9 in adult Sleep-disordered breathing Other sleep disturbances 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 artery of [place] heart without angina pectoris- Primary Hx of CABG Postsurgical aortocoronary bypass status Primary hypertension Unspecified essential hypertension Mixed hyperlipidemia CRI (chronic renal insufficiency), stage 4 (severe) (HCC) PAD (peripheral artery disease) Peripheral vascular disease, unspecified Other emphysema (HCC) Other emphysema Non-rheumatic mitral regurgitation Mitral valve disorders ROMAN (dyspnea on exertion) Other dyspnea and respiratory abnormality MCI (mild cognitive impairment) Mild cognitive impairment, so stated [facility] Diagnosis Dyspnea and respiratory abnormalities- Primary Other dyspnea and respiratory abnormality Centrilobular emphysema (HCC) Other emphysema Class 1 obesity due to excess calories with serious comorbidity and body mass index (BMI) of 32.0 to 32.9 in adult Sleep-disordered breathing Other sleep disturbances Chronic heart failure with preserved ejection fraction (HCC)- Primary documented in this encounter [facility] general Narrative - Reported* Type Description Date Medical History hypertension Medical History hypercholesterolemia Medical History lung cancer Medical History heart disease Medical History A flutter Medical History Esophageal reflux Medical History DEPRESSION AND ANXIETY Surgical History CABG Surgical History hernia Surgical History lobectomy: lung Surgical History [facility]/Dr Joshi--hernia repair 2020 Hospitalization History see above [facility] Other Hisozgs general Narrative - ReportedNort [facility] Other Hisydfj general Narrative - ReportedNort [facility]uity [facility] Other InstructionsNot on filedocumented in this encounter [facility] ([facility]ative)* Reason * Waiting for appt pulmonology, lung nodule, progressive SOB, hx. lung cancer Diagnosis 1 Pulmonary nodule (R9 1.1) Referral Organization [facility] Family Medicjuvenal e Clare Referring Provider First Name Cristo Referring Provider Last Name Gabriele Referring Provider Specialty Family Medi cine Referred Organization [facility] Referred Provider Gonsalo Hawley Referred Address [address] [place] [id number] Referred Provider Specialty Pulmonary Di seases Referral Priority Routine General Notes Mattie Carballo 01:40:04 PM >referral received and sent p2p successful per log [facility] Other Reason for referral (narrative)* Outpatient Procedure (Routine) - Pending Review Specialty Diagnoses / Procedures Referred By Lam chacko Referred To Contact [facility] Diagnoses Shortness of breath Procedures SPIROMETRY WITH DILATOR IF OBSTRUCTED BRNCDILAT RSPSE SPMTRY PRE&POST-BRNCDILAT ADMMarisol Abdul MD [address] [place] [address] [facility] [place] [address] Referral ID Status Reason Start Date Expiration Date Visits Requested Visits Authorized [id number] Pending Review Auto-Generat ed Referral 02/09/2022 03/10/2023 1 1 [facility] for visit NarrativeRef by Dr. Suazo for pulmonology, lung nodule, progressive SOB, hx. lung cancerAxtell [facility] Other Summary Purpose Family History No Family [...] July 6:23pm Hospital Course Note MR#: [id number] [facility] Pt. Name: Kel Castillo Admitted: 10/05/2019 Discharged: [...] STEM W/[place] [address] [place] [address] Mr Imaging Referral ID Status Reason Start Date Expiration Date Visits Requested Visits Authorized [id number] Authorized Auto-Generat ed Referral 12/22/2021 01/21/2023 1 1 Specialty Diagnoses / Procedures Referred By Heribertoac t Referred To Contact MR IMAGING Diagnoses Cognitive impairment, mild, so stated Procedures MRI 3D POST PROCESSING 3D RENDERING W/INTERP&POSTPROC DIFF WORK STATION Alonzo Cabrera MD, [address] [place] [address] Mr Imaging Referral ID Status Reason Start Date Expiration Date Visits Requested Visits Authorized [id number] Pending Review Auto-Generat ed Referral 02/08/2022 03/10/2023 1 1 Referral ID Status Reason Start Date Expiration Date V isits Requested Visits Authorized [id number] Closed Auto-Generate d Referral 12/22/2021 01/21/2023 1 1 Specialty Diagnoses / Procedures Referred By Lam t Referred To Contact Psychology Diagnoses Recurrent major 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) Procedures CONSULT TO PSYCHOLOGY OFFICE/OUTPATIENT NEW HIGH MDM 60-74 MINUTES Ebony Kaufman DO [address] [place] [address] Referral ID Status Reason Start Date Expiration Date Visits Requested Visits Authorized [id number] Pending Review PCP Requested Referral 04/10/2022 04/10/2023 1 1 Specialty Diagnoses / Procedures Referred By Lam t Referred To Contact [facility] Diagnoses Abnormality of gait Procedures CONSULT TO PHYSICAL THERAPY PHYSICAL THERAPY EVALUATION HIGH COMPLEX 45 MINS Ebony Trent DO [address] [place] [address] [facility] [place] [address] Referral ID Status Reason Start Date Expiration Date Visits Requested Visits Authorized [id number] Pending Review Auto-Generat ed Referral 05/04/2024 05/04/2025 1 1 Specialty Diagnoses / Procedures Referred By Lam t Referred To Contact CT IMAGING Diagnoses Memory loss Procedures CT BRAIN WO IVCON CT HEAD/BRAIN W/O CONTRAST MATERIAL Ebony Trent DO [address] [place] [address] [facility] [place] [address] Referral ID Status Reason Start Date Expiration Date Visits Requested Visits Authorized [id number] Authorized Auto-Generat ed Referral 05/04/2024 06/03/2025 1 1 Specialty Diagnoses / Procedures Referred By Contximena t Referred To Contact Diagnoses Memory loss Procedures NEUROPSYCHOLOGICAL TESTING CONSULT NEUROBEHAVIORAL STATUS XM PHYS/QHP 1ST HOUR NEUROPSYCHOLOGICAL TST EVAL PHYS/QHP 1ST HOUR NEUROPSYCHOLOGICAL TST EVAL PHYS/QHP EA ADDL HR PSYCL/NRPSYCL TST TECH 2+ TST 1ST 30 MIN PSYCL/NRPSYCL TST TECH 2+ TST EA ADDL 30 MIN Ebony Trent, [address] [place] [address] Referral ID Status Reason Start Date Expiration Date Visits Requested Visits Authorized [id number] Ref Not Required PCP Requested Referral 05/04/2024 05/04/2025 1 3 Referral ID Status Reason Start Date Expiration Date V isits Requested Visits Authorized [id number] Closed Auto-Generate d Referral 05/04/2024 06/03/2025 1 1 Chief Complaint and Reason for Visit Chief Complaint g47.30 Chief Complaint RENAL 6 MONTH F/U Reason for Visit Anemia CAD (coronary artery disease) of artery bypass graft Chronic kidney disease, stage 3b Hyperkalemia Hyperlipemia [id number] Chief Complaint Admit Date RENAL 6 MONTH [...] section and content) DATE CREATED AUTHOR 04/05/2018 [facility] DATE CREATED AUTHOR AUTHOR'S ORGANIZ ATION 01/06/2020 [facility] DATE CREATED AUTHOR AUTHOR'S ORGANIZ ATION 12/19/2022 [facility] DATE CREATED AUTHOR AUTHOR'S ORGANIZ ATION 04/22/2023 [facility] DATE CREATED AUTHOR AUTHOR'S ORGANIZ ATION 03/04/2024 [facility] DATE CREATED AUTHOR AUTHOR'S ORGANIZ ATION 05/13/2024 [facility] DATE CREATED AUTHOR AUTHOR'S ORGANIZ ATION 10/13/2024 [facility] DATE CREATED AUTHOR AUTHOR'S ORGANIZ ATION 03/03/2025 [facility] DATE CREATED AUTHOR AUTHOR'S ORGANIZ ATION 04/07/2025 [facility] DATE CREATED AUTHOR AUTHOR'S ORGANIZ ATION 04/07/2025 [facility] DATE CREATED AUTHOR AUTHOR'S ORGANIZ ATION 04/17/2025 [facility] Source Comments (unrecognize d section and content) In the event this informatio n is protected by the Federal Confidentiality of Alcohol and Drug Abuse Patient Records regulations: The Federal rules restrict any use of the information to criminally investigate or prosecute any alcohol or drug abuse patient.[facility] Center[facility] the event this information is protected by the Federal Confidentiality of Alcohol and Drug Abuse Patient Records regulations: The Federal rules restrict any use of the information to criminally investigate or prosecute any alcohol or drug abuse patient.[facility] CenterIn the event this information is protected by the Federal Confidentiality of Alcohol and Drug Abuse Patient Records regulations: The Federal rules restrict any use of the information to criminally investigate or prosecute any alcohol or drug abuse patient.[facility] CenterIn the event this information is protected by the Federal Confidentiality of Alcohol and Drug Abuse Patient Records regulations: The Federal rules restrict any use of the information to criminally investigate or prosecute any alcohol or drug abuse patient.[facility] CenterIn the event this information is protected by the Federal Confidentiality of Alcohol and Drug Abuse Patient Records regulations: The Federal rules restrict any use of the information to criminally investigate or prosecute any alcohol or drug abuse patient.[facility] CenterIn the event this information is protected by the Federal Confidentiality of Alcohol and Drug Abuse Patient Records regulations: The Federal rules restrict any use of the information to criminally investigate or prosecute any alcohol or drug abuse patient.[facility] CenterIn the event this information is protected by the Federal Confidentiality of Alcohol and Drug Abuse Patient Records regulations: The Federal rules restrict any use of the information to criminally investigate or prosecute any alcohol or drug abuse patient.[facility] CenterIn the event this information is protected by the Federal Confidentiality of Alcohol and Drug Abuse Patient Records regulations: The Federal rules restrict any use of the information to criminally investigate or prosecute any alcohol or drug abuse patient.[facility] CenterIn the event this information is protected by the Federal Confidentiality of Alcohol and Drug Abuse Patient Records regulations: The Federal rules restrict any use of the information to criminally investigate or prosecute any alcohol or drug abuse patient.[facility] CenterIn the event this information is protected by the Federal Confidentiality of Alcohol and Drug Abuse Patient Records regulations: The Federal rules restrict any use of the information to criminally investigate or prosecute any alcohol or drug abuse patient.[facility] CenterIn the event this information is protected by the Federal Confidentiality of Alcohol and Drug Abuse Patient Records regulations: The Federal rules restrict any use of the information to criminally investigate or prosecute any alcohol or drug abuse patient.[facility] CenterIn the event this information is protected by the Federal Confidentiality of Alcohol and Drug Abuse Patient Records regulations: The Federal rules restrict any use of the information to criminally investigate or prosecute any alcohol or drug abuse patient.[facility] CenterIn the event this information is protected by the Federal Confidentiality of Alcohol and Drug Abuse Patient Records regulations: The Federal rules restrict any use of the information to criminally investigate or prosecute any alcohol or drug abuse patient.[facility] CenterIn the event this information is protected by the Federal Confidentiality of Alcohol and Drug Abuse Patient Records regulations: The Federal rules restrict any use of the information to criminally investigate or prosecute any alcohol or drug abuse patient.[facility] CenterIn the event this information is protected by the Federal Confidentiality of Alcohol and Drug Abuse Patient Records regulations: The Federal rules restrict any use of the information to criminally investigate or prosecute any alcohol or drug abuse patient.[facility] CenterIn the event this information is protected by the Federal Confidentiality of Alcohol and Drug Abuse Patient Records regulations: The Federal rules restrict any use of the information to criminally investigate or prosecute any alcohol or drug abuse patient.[facility] Reason for Visit (unrecogniz ed section and content) Reason Comments New Patient Memory loss Specialty Diagnoses / Procedures Referred By Contac t Referred To Contact MR IMAGING Diagnoses Cognitive impairment, mild, so stated 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) Depression, unspecified depression type Procedures MRI BRAIN WO IVCON MRI BRAIN BRAIN STEM W/[place] [address] [address] [place] [id number] Mr Imaging Referral ID Status Reason Start Date Expiration Date V isits Requested Visits Authorized [id number] Closed Auto-Generate d Referral 12/22/2021 01/21/2023 1 1 Reason Comments Spirometry Specialty Diagnoses / Procedures Referred By Contac t Referred To Contact [facility] Diagnoses Shortness of breath Procedures SPIROMETRY WITH DILATOR IF OBSTRUCTED BRNCDILAT RSPSE SPMTRY PRE&POST-BRNCDILAT Marisol Olivares MD [address] [place] [address] [facility] [place] [address] [place] [address] Referral ID Status Reason Start Date Expiration Date V isits Requested Visits Authorized [id number] Closed Auto-Generate d Referral 02/09/2022 03/10/2023 1 1 Reason Comments New Patient 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) 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 placed in EPIC Reason Comments Established Patient Reason Comments Follow-up MEDS/SHOULDER Reason Comments Established Patient Follow Up Specialty Diagnoses / Procedures Referred By Contac t Referred To Contact Neurology / NEUROLOGY Diagnoses Follow-up exam Follow up Procedures OFFICE/OUTPATIENT ESTABLISHED HIGH MDM 40 MIN EST NI PATIENT Self Ebony Trent DO [address] [place] [address] Referral ID Status Reason Start Date Expiration Date Visits Requested Visits Authorized [id number] Authorized Financial Clearance Not Required Patient Cleared - INN Insurance Found 05/01/2024 08/11/[phone] Specialty Diagnoses / Procedures Referred By Contac t Referred To Contact CT IMAGING Diagnoses Memory loss Procedures CT BRAIN WO IVCON CT HEAD/BRAIN W/O CONTRAST MATERIAL Ebony Trent, DO [address] [place] [address] Ct Imaging [facility] Referral ID Status Reason Start Date Expiration Date V isits Requested Visits Authorized [id number] Closed Auto-Generate d Referral 05/04/2024 06/03/2025 1 1 Reason Comments Med Refill Specialty Diagnoses / Procedures Referred By Lam t Referred To Contact Diagnoses Memory loss Procedures NEUROPSYCHOLOGICAL TESTING CONSULT NEUROBEHAVIORAL STATUS XM PHYS/QHP 1ST HOUR NEUROPSYCHOLOGICAL TST EVAL PHYS/QHP 1ST HOUR NEUROPSYCHOLOGICAL TST EVAL PHYS/QHP EA ADDL HR PSYCL/NRPSYCL TST TECH 2+ TST 1ST 30 MIN PSYCL/NRPSYCL TST TECH 2+ TST EA ADDL 30 MIN Ebony Trent, DO [address] [place] [address] Referral ID Status Reason Start Date Expiration Date Visits Requested Visits Authorized [id number] Authorized PCP Requested Referral 05/04/2024 05/04/2025 1 3 Reason Comments Hypertension Reason Comments Follow-up Reason Comments Neck Pain Reason Comments Hypertension Reason Comments New Patient CAD Reason Onset Date Comments Results 04/02/2025 Reason Comments 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 [address] [address] [place] Referring Team Psychiatry 12/21/21 Pharmacy Data Analyst Relationship Specialty Start Date End Date [facility], [place] [address] [place] [address] NI Referring Team Psychiatry 12/21/21 Pharmacy Data Analyst Relationship Specialty Start Date End Date [facility], [place] [address] [place] [address] NI Referring Team Psychiatry 12/21/21 Pharmacy Data Analyst Relationship Specialty Start Date End Date [facility], [place] [address] [place] [address] NI Referring Team Psychiatry 12/21/21 Pharmacy Data Analyst Relationship Specialty Start Date End Date [facility] [address] [place] [address] NI Referring Team Psychiatry 12/21/21 Pharmacy Data Analyst Relationship Specialty Start Date End [facility] [address] [place] [address] NI Referring Team Psychiatry 12/21/21 Pharmacy Data Analyst Relationship Specialty Start Date End Date [facility] [address] [place] [address] NI Referring Team Psychiatry 12/21/21 Team Status: Inactive Member Role Status Dates Corona Monroe MD Attending Provider Active Daria Cardoza DO Primary Care Provider Active Team Status: Active Member Role Status Dates Daria Cardoza DO Primary Care Provider Active Pharmacy Data Analyst Relationship Specialty Start Date End Date [facility] sm[facility] [address] [place] [address] NI Referring Team Psychiatry 12/21/21 Pharmacy Data Analyst Relationship Specialty Start Date End Date Shaikh [...] March 31, 2024 End: March 31, 2024 Pharmacy Data Analyst Relationship Specialty Start Date End Date Thomas Hurtado MD [address] [place] [address] NI Referring Team Psychiatry 12/21/21 Pharmacy Data Analyst Relationship Specialty Start Date End Date Thomas Hurtado MD [address] [place] [address] NI Referring Team Psychiatry 12/21/21 Pharmacy Data Analyst Relationship Specialty Start Date End Date Shaikh Grimes MD [address] [place] [phone] PCP - [employer] 10/11/23 Jose Beckford MD [address] [place] [phone] PCP - General Family Medicine 06/09/24 Jayy Coronado NP [address] [place] [address] Nurse Practitioner Family Medicine 06/09/24 Pharmacy Data Analyst Relationship Specialty Start Date End Date Shaikh Grimes MD [address] [place] [phone] PCP - [employer] 10/11/23 Jose Beckford MD [address] [place] [phone] PCP - General Family Medicine 06/09/24 Jayy Coronado NP [address] [place] [address] Nurse Practitioner Family Medicine 06/09/24 Pharmacy Data Analyst Relationship Specialty Start Date End Date Fawwad, Medina, MD [address] [place] [phone] PCP - [employer] 10/11/23 Jose Beckford MD [address] [place] [address] PCP - General Family Medicine 06/09/24 Jayy Coronado NP [address] [place] [address] Nurse Practitioner Family Medicine 06/09/24 Vannessa Russell MA Family Medicine 06/17/24 06/18/24 Pharmacy Data Analyst Relationship Specialty Start Date End Date Shaikh Grimes MD [address] [place] [address] PCP - [employer] 10/11/23 Jose Beckford MD [address] [place] [address] PCP - General Family Medicine 06/09/24 Jayy Coronado, DIRECT CARE STAFFER [address] [place] [address] Nurse Practitioner Family Medicine 06/09/24 Pharmacy Data Analyst Relationship Specialty Start Date End Date Shaikh Grimes MD [address] [place] [address] PCP - [employer] 10/11/23 Jose Beckford MD [address] [place] [address] PCP - General Family Medicine 06/09/24 Jayy Coronado NP [address] [place] [address] Nurse Practitioner Family Medicine 06/09/24 Pharmacy Data Analyst Relationship Specialty Start Date End Date Shaikh Grimes MD [address] [place] [address] PCP - General Internal Medicine 08/12/22 Shaikh Grimes MD [address] [place] [address] PCP - [employer] 10/11/23 Pharmacy Data Analyst Relationship Specialty Start Date End Date Thomas Hurtado MD [address] [place] [address] [place] Referring Team Psychiatry 12/21/21 Pharmacy Data Analyst Relationship Specialty Start Date End Date Jose Beckford MD [address] [place] [address] PCP - General Family Medicine 06/09/24 Jayy Coronado NP [address] [place] [address] Nurse Practitioner Family Medicine 06/09/24 Pharmacy Data Analyst Relationship Specialty Start Date End Date Jose Beckford MD [address] [place] [address] PCP - General Family Medicine 06/09/24 Jayy Coronado NP [address] [place] [address] Nurse Practitioner Family Medicine 06/09/24 Pharmacy Data Analyst Relationship Specialty Start Date End Date Thomas Hurtado MD [address] [place] [address] [place] Referring Team Psychiatry 12/21/21 Team Status: Inactive Member Role Status Dates NON STAFF Primary Care Provider Active Start: October 27, 2024 End: October 27, 2024 Lisseth Toscano MD Attending Provider Active Star t: October 27, 2024 End: October 27, 2024 Pharmacy Data Analyst Relationship Specialty Start Date End Date Jose Beckford MD [address] [place] [address] PCP - General Family Medicine 06/09/24 Jayy Coronado NP [address] [place] [address] Nurse Practitioner Family Medicine 06/09/24 Pharmacy Data Analyst Relationship Specialty Start Date End Date Jose Beckford MD [address] [place] [address] PCP - General Family Medicine 06/09/24 Jayy Coronado NP [address] [place] [address] Nurse Practitioner Family Medicine 06/09/24 Pharmacy Data Analyst Relationship Specialty Start Date End Date Jose Beckford MD [address] [place] [address] PCP - General Family Medicine 06/09/24 Jayy Coronado NP [address] [place] [address] Nurse Practitioner Family Medicine 06/09/24 Pharmacy Data Analyst Relationship Specialty Start Date End Date Jose Beckford MD [address] [place] [address] PCP - General Family Medicine 06/09/24 Jayy Coronado NP [address] [place] [address] Nurse Practitioner Family Medicine 06/09/24 Pharmacy Data Analyst Relationship Specialty Start Date End Date Jose Beckford MD [address] [place] [address] PCP - General Family Medicine 06/09/24 Jayy Coronado NP [address] [place] [address] Nurse Practitioner Family Medicine 06/09/24 Pharmacy Data Analyst Relationship Specialty Start Date End Date Jose Beckford MD [address] [place] [address] PCP - General Family Medicine 06/09/24 Jayy Coronado NP [address] [place] [address] Nurse Practitioner Family Medicine 06/09/24 Pharmacy Data Analyst Relationship Specialty Start Date End Date Jose Beckford MD [address] [place] [address] PCP - General Family Medicine 06/09/24 Jayy Coronado NP [address] [place] [address] Nurse Practitioner Family Medicine 06/09/24 Pharmacy Data Analyst Relationship Specialty Start Date End Date Jose Beckford MD [address] [place] [address] PCP - General Family Medicine 06/09/24 Jayy Coronado NP [address] [place] [address] Nurse Practitioner Family Medicine 06/09/24 Pharmacy Data Analyst Relationship Specialty Start Date End Date Jose Beckford MD [address] [place] [address] PCP - General Family Medicine 06/09/24 Jayy Coronado NP [address] [place] [address] Nurse Practitioner Family Medicine 06/09/24 Pharmacy Data Analyst Relationship Specialty Start Date End Date Jose Beckford MD [address] [place] [address] PCP - General Family Medicine 06/09/24 Jayy Coronado NP [address] [place] [address] Nurse Practitioner Family Medicine 06/09/24 Pharmacy Data Analyst Relationship Specialty Start Date End Date Jose Beckford MD [address] [place] [address] PCP - General Family Medicine 06/09/24 Jayy Coronado NP [address] [place] [address] Nurse Practitioner Family Medicine 06/09/24 Team Status: Inactive Member Role Status Dates NON STAFF Primary Care Provider Active Start: January 19, 2025 End: January 19, 2025 Lisseth Toscano MD Attending Provider Active Star t: January 19, 2025 End: January 19, 2025 Pharmacy Data Analyst Relationship Specialty Start Date End Date Susan Watson, [employer] [address] [place] [address] PCP - General Nurse Practitioner 01/11/25 Pharmacy Data Analyst Relationship Specialty Start Date End Date Jose Beckford MD [address] [place] [address] PCP - General Family Medicine 06/09/24 Jayy Coronado NP [address] [place] [address] Nurse Practitioner Family Medicine 06/09/24 Pharmacy Data Analyst Relationship Specialty Start Date End Date Jose Beckford MD [address] [place] [address] PCP - General Family Medicine 06/09/24 Jayy Coronado NP [address] [place] [address] Nurse Practitioner Family Medicine 06/09/24 Pharmacy Data Analyst Relationship Specialty Start Date End Date Jose Beckford MD [address] [place] [address] PCP - General Family Medicine 06/09/24 Jayy Coronado NP [address] [place] [phone] Nurse Practitioner Family Medicine 06/09/24 Pharmacy Data Analyst Relationship Specialty Start Date End Date Susan Watson APRN-[employer] PCP - General Nurse Practitioner 01/11/25 Pharmacy Data Analyst Relationship Specialty Start Date End Date Jose Beckford MD [address] [place] [address] PCP - General Family Medicine 06/09/24 Jayy Coronado NP [address] [place] [address] Nurse Practitioner Family Medicine 06/09/24 Pharmacy Data Analyst Relationship Specialty Start Date End Date Susan Watson, [employer] [address] [place] [phone] PCP - General Family Medicine 04/01/25 Thomas Hurtado MD [address] [place] [address] [place] Referring Team Psychiatry 12/21/21 Pharmacy Data Analyst Relationship Specialty Start Date End Date Susan Watson, [employer] [address] [place] [address] PCP - General Family Medicine 04/01/25 Thomas Hurtado MD [address] [place] [address] [place] Referring Team Psychiatry 12/21/21 Pharmacy Data Analyst Relationship Specialty Start Date End Date Susan Watson, [employer] [address] [place] [address] PCP - General Family Medicine 04/01/25 Thomas Hurtado MD [address] [place] [address] [place] Referring Team Psychiatry 12/21/21 Goals (unrecognized [...] BE BASED ON THE PRIMARY CLINICAL RECORDS. [employer] provides no warranty or guarantee of the accuracy or completeness of information in this document.
[2025-04-17 10:01] LABS: Anion Gap 12.0; Blood Urea Nitrogen 28.0 mg/dL (7.0-18.0); Calcium 9.2 mg/dL (8.5-10.1); Carbon Dioxide 28.1 mmol/L (21.0-32.0); Chloride 108 mmol/L (98-107); Estimated GFR (African America 40 (>=60 mL/min/1.73m^2); Estimated GFR (Non-African Ame 33 (>=60 mL/min/1.73m^2); Glucose 98 mg/dL (74-106); Potassium 5.1 mmol/L (3.5-5.1); Sodium 143 mmol/L (136-145)
== END 2025-04-17 09:04 | disposition home or self-care (01) ==
PROVIDERS: PCP Nurse Practitioner; Visit Provider Internal Medicine Interventional Cardiology
DX: N18.4 Chronic kidney disease, stage 4 (severe) (principal)
CPT/HCPCS: 36415; 80048

== ENCOUNTER 2025-04-20 07:38 | Outpatient (OUT) | payer MEDICARE, SELFPAY ==
--- NOTE | 2025-04-20 07:45 | NM_ITS ---
Patient Name: KEL CASTILLO MR#: [id number] : 1955 Exam Date: 04/20/2025 Ordering Doctor: DR MARK TOLLIVER M.D. RADIOLOGY REPORT PROCEDURE: NM EDITH PERF SPECT REST STR COMPARISON: None. INDICATIONS: PRE PROCEDURE CARDIOVASCULAR EXAM, SHORTNESS OF BREATH, CAD TECHNIQUE: Exam Description: Rest/Stress one day protocol gated SPECT Rest Imagin.2 mCi Tc-99m Cardiolite IV on 04/20/2025 Stress Imaging 30.6 mCi Tc-99m Cardiolite IV on 04/20/2025 Exercise Protocol: 0.4 mg Lexiscan given IV Heart Rate (bpm): Rest: 54 Max: 66 PMHR: 44 Blood Pressure: Rest: 128/61 Max: 128/61 Symptoms: Rest and peak stress ECG findings were pending, and the exercise portion of the study was pending per attending physician [facility]. For more details, please see separate cardiac stress test report. FINDINGS: QUALITY OF STUDY: Good PERFUSION DEFECT: LOCATION: N/A SIZE: N/A SEVERITY: N/A TYPE: N/A WALL MOTION: Diffuse hypokinesis. Abnormal septal motion is seen, this is not an unusual finding in the post open operation LV SIZE: 122 mL. TID / TCD: 0.9 LVEF: Calculated EF 44%. SUMMARY: Myocardial perfusion imaging study is abnormal CONCLUSION: 1. Myocardial perfusion is normal with soft tissue attenuation 2. Global left ventricular systolic function is mildly reduced; ejection fraction is 44% 3. No significant transient ischemic dilatation Dictated by: Mark Tolliver M.D. on 04/20/2025 at 14:39 Approved by: Mark Tolliver M.D. on 04/20/2025 at 14:48
--- OUTSIDE RECORDS SUMMARY | 2025-04-20 07:47 | XMS_ITS | CCD ---
Author Organization [facility] Care Team Providers Care Reheat Furnace Operator Name Role Phone AMBURN, JOMAR Unavailable Unavailable AMBURN, JOMAR Unavailable Unavailable AMBURN, JOMAR Unavailable Unavailable AMBURN, JOMAR Unavailable Unavailable AMBURN, JOMAR Unavailable Unavailable AMBURN, JOMAR Unavailable Unavailable Genesis, Thomas Unavailable Reuben Triana Unavailable Susannah Nevarez Unavailable Cristo Suazo Unavailable Cristo Suazo Unavailable Genesis, Thomas Unavailable Corona Monroe Unavailable Genesis, Thomas Unavailable MD Corona Monroe Attending Provider DO Daria Cardoza Primary Care Provider [phone] Genesis, Thomas Unavailable Nadira Choi Unavailable Lisseth Toscano Unavailable Genesis, Thomas Unavailable SHAIKH Randolph GRIMES [...] Unavailable Cornelio LEMON, Medina Primary Care Provider [phone] Genesis LEMON, Thomas Unavailable EBONY KAUFMAN Referring Unavailable Cornelio LEMON, Medina Unavailable Jose Beckford MD Primary Care Provider Ivonne EXTRUSION DIE CORRECTOR, Jayy Unavailable [phone] Vannessa Russell MA Unavailable Unavailable Cornelio LEMON, [facility] Primary Care Provider Ivonne EXTRUSION DIE CORRECTOR, Jayy Unavailable EBONY TRENT Attending Unavailable SELF Referring Unavailable MISTY POLO Attending Unavailable EBONY TRENT Referring Unavailable EBONY TRENT Attending Unavailable SELF Referring Unavailable Aichholobi PEANUT SORTER-LEATHER SEASONER, Susan Hurley Primary Care Provider SUSAN WATSON Attending Unavailable SUSAN WATSON Attending Unavailable SHAIKH GRIMES Attending Unavailable JAYY CORONADO Attending Unavailabl e SUSAN WATSON Attending Unavailable SUSAN WATSON Attending Unavailable JAYY CORONADO Attending Unavailabl e Aichholz PEANUT SORTER-LEATHER SEASONER, Susan J Primary Care Provider AichSusan oh CNP Primary Care Provider BILL GANT Referring Unavailable SUSAN WATSON Primary Care Unavailable BILL GANT Attending Unavailable SELF Referring Unavailable SUSAN WATSON Primary Care Unavailable JAYY CORONADO Referring Unavaila ble SHAIKH GRIMES Primary Care Unavailable ELTAHAWVaishali, EHAB A Referring Unavailable MOSES GRIMESIKH Primary Care Unavailable SUSAN WATSON Referring Unavailable AICHHOLZ, SUASN J Primary Care Unavailable BAKHOUS, AZIZ Referring [...] Primary Care Unavailable DARRICK SAUER Attending Unavailable DARRICK SAUER Referring Unavailable AICHHOLZ, SUSAN J Primary Care Unavailable BILL GANT Referring Unavailable AICHHOLZ, SUSAN J Primary Care Unavailable ELTAHAWY, EHAB Attending Unavailable ITALO LYLES Referring Unavailable ELTAHAWY, EHAB Admitting Unavailable ELTAHAWY, EHAB Attending Unavailable ELTAHAWY, EHAB Referring Unavailable Allergies Allergy Classification Reported Allergen(s) Allergy Type Date of Onset Reaction(s) Facility (1 source) Penicillins; Translations: [PENICILLINS] Propensity to adverse reactions to drug (disorder) 5 [facility] Repository Medications Current Medications Medication Drug Class(es) Dates Sig (Normalized) Sig (Original) [id number] 200 actuat albuterol 0.09 mg/actuat metered dose [...] EC tablet Indications: Coronary artery disease involving ivanof bay coronary artery of ivanof [place] heart without angina pectoris Take 1 tablet [...] MG tablet Indications: Coronary artery disease involving [place]of [place] coronary artery of [place]of [place] heart without angina pectoris Take 1 tablet [...] daily. 12/15/2021 Active take 1 capsule by [facility] once daily before breakfast fenofibrate micronized (ANTARA) [...] Indications: Chronic kidney disease, stage 4 (severe) ([facility]) Take 1 tablet (325 mg) by mouth [...] 1 puff(s) by inhalation in the morning nqkprtfnoza-kbhkkirzf-jvptjioz (TRELEGY ELLIPTA) 100-62.5-25 mcg blister with device Inhale 1 puff in the morning. 02/18/2024 03/24/2025 Active Start: 10-15-2023 Fluticasone-Um eclidin-Vilanter (Trelegy Ellipta) 100-62.5-25 mcg blister with device Active 1 INH INHALATION Daily October 15, 2023 1:00am Start: 09-19-2023 End: 12-18-2023 take 1 puff(s) by inhalation in the morning Fipnhjjkqqx-Femoepvph-Doqgsy (Trelegy Ellipta) 100-62.5-25 MCG/ACT aerosol powder Indications: Chronic obstructive pulmonary disease, unspecified COPD type (CMS/HCC) Inhale 1 puff in the morning. 90 each 0 09/19/2023 12/18/2023 Active Start: 02-27-2022 take 1 puff(s) by inhalation once daily Trelegy Ellipta 100-62.5-25 MCG/INH 1 pu ff Inhalation Once a day for 30 days Feb, Active End: 09-19-2023 Okprxknxcze-Gmfwiocyi-Rtxcwo (Trelegy Ellipta) 100-62.5-25 MCG/ACT aerosol powder Inhale [...] hr tablet Indications: Coronary artery disease involving ivanof bay coronary artery of ivan[place] heart without angina pectoris (CMS/HCC) , Primary hypertension (CMS/HCC) Take 1 tablet (60 mg) by mouth in the morning. Do not crush or chew.. 90 tablet 0 09/19/2023 12/18/2023 Active Start: 10-22-2019 End: 05-30-2025 take 1 tablet by mouth once daily isosorbide mononitrate ER (Imdur) 60 MG 24 hr tablet Indications: Primary hypertension , Coronary artery disease involving ivanof bay coronary artery of [place] heart without angina pectoris Take 1 tablet [...] Primary hypertension , Coronary artery disease involving ivanof bay coronary artery of ivan[place] heart without angina pectoris Take 1 tablet (50 mg) by mouth in the morning and 1 tablet (50 mg) before bedtime. 180 tablet 1 03/01/2025 05/30/2025 Active Start: 09-19-2023 End: 12-18-2023 take 1 tablet by mouth in the morning metoprolol tartrate (Lopressor) 50 MG tablet Indications: Coronary artery disease involving ivanof bay coronary artery of ivan[place] heart without angina pectoris (CMS/HCC) , Primary [...] DAILY Active take 1 capsule by mo [facility] twice daily Metoprolol Succinate 50 MG 1 [...] SL tablet Indications: Coronary artery disease involving ivanof bay coronary artery of [place] heart without angina pectoris Place 1 tablet [...] BY MOUTH EVERY DAY AT BEDTIME omega 9-iqf-awa-fish oil (FISH OIL) 100-160-1,000 mg cap (16 sources) omega 3-dha-epa- fish oil (FISH OIL) 100-160-1,000 mg cap Take by mouth. Active omega 3-dha-epa- fish oil (FISH OIL) 100-160-1,000 mg cap Take by mouth. 0 Active Comment on above: Take by mouth. Andrews-3 Fatty Acids (2 sources) Start: 09-13-2020 take 1000 mg by mouth once daily Andrews-3 Fatty Acids Active 1000 MG PO Daily September 13, 2020 1:00am Andrews-3 Fatty Acids Capsule (2 sources) Start: 09-13-2020 take 1 capsule by mouth once daily Andrews-3 Fatty Acids Capsule Active 1000 MG PO [...] Start: 12-04-2021 take 1 capsule by [facility] every twenty-four hours Doxepin HCl 25 MG [...] 50 PLUS) tab (9 sources) End: 08-15-2022 Fyrodyoalmsgm-Lmiyaqap-Vkfh in (MULTIVITAMIN 50 PLUS) tab Take 1 [...] disease (20 sources) Atherosclerotic heart disease of ivanof bay coronary artery without angina pectoris; Translations: [Coronary [...] of the extremities; Translations: [Unspecified atherosclerosis of ivanof bay arteries of extremities, unspecified extremity] Onset: 08-25-2012 [...] Test Name Value Interpretation Reference Range Facility 36on 04-19-2025 36 Pt calling about bmp results, they are in media please advise Normal [facility] Nichelle 04-08-2025 DIANES -- Attestation signed by Sarah Tolliver MD at 04/08/2025 9:29 AM Sarah Tolliver MD, MPH, FACC, [facility], [facility] Interventional Cardiology Pager Email: [email or web address] Patient: Kel Castillo Procedure Information Date/Time: 04/08/25 0930 Procedures: Aortogram - PC APPROVED AO/ RUNOFFS Lower extremity angiogram (Bilateral) Location: [facility] DOCUMENTATION ANALYST 3 / [facility]ULAR [facility] (Cath) Providers: Sarah Tolliver MD Clinical information reviewed: [facility] Meds Physical Exam Airway Mallampati: III TM [...] discussed with attending. Additional Equipment Requests Normal [facility] BASIC METABOLIC PANELon 03-13 Anion gap [Moles/Vol] 10 mmol/L Normal 7-20 [facility] Comment on above: Performed By: #### L AB15 #### [facility] (BEAKER) [address] [place] [address] Calcium [Mass/Vol] 9.3 mg/dL Normal 8.6-10.3 [facility] Comment on above: Performed By: #### L AB15 #### [facility] (BEAKER) [address] [place] [address] Chloride [Moles/Vol] 106 mmol/L Normal 98-107 [facility] Comment on above: Performed By: #### L AB15 #### [facility] (BEAKER) [address] [place] [address] CO2 [Moles/Vol] 28 mmol/L Normal 21-31 [facility] Comment on above: Performed By: #### L AB15 #### [facility] ([facility]) [address] [place] [address] Creatinine [Mass/Vol] 2.18 mg/dL High 0.70-1.30 [facility] Comment on above: Performed By: #### L AB15 #### [facility] ([facility]) [address] [place] [address] GLOMERULAR FILTRATION RATE ML/MIN/1.73 SQ M.PREDICTED 31.6 mL/min/1.73m*2 Low >60.0 [facility] Comment on above: Result Comment: The [facility]???s estimated glomerular filtration rate (eGFR) will [...] individuals. Performed By: #### L AB15 #### [facility] ([facility]) [address] [place] [address] Glucose [Mass/Vol] 102 mg/dL High 70-100 [facility] Comment on above: Performed By: #### L AB15 #### [facility] ([facility]) [address] [place] [address] Potassium [Moles/Vol] 4.4 mmol/L Normal 3.5-5.1 [facility] Comment on above: Performed By: #### L AB15 #### [facility] ([facility]) [address] [place] [address] Sodium [Moles/Vol] 140 mmol/L Normal 136-145 [facility] Comment on above: Performed By: #### L AB15 #### [facility] (BEAKER) [address] [place] [address] Urea nitrogen [Mass/Vol] 34 mg/dL High 7-25 [facility] Comment on above: Performed By: #### L AB15 #### [facility] ([facility]) [address] [place] [address] UREA NITROGEN/CREATININE (MASS RATIO) IN SER/PLAS 15.6 Normal [facility] Comment on above: Performed By: #### L AB15 #### [facility] ([facility]) [address] [address] CBCon 04-08-2025 Erythrocyte distribution width (RBC) [Ratio] 14.6 % Normal 11.5-15.0 [facility] Comment on above: Performed By: #### L [id number] ####[facility] ([facility])[address] [place] [address] ERYTHROCYTE MEAN CORPUSCULAR HEMOGLOBIN CONCENTRATION (G/DL) BY AUTOMATED 33.1 g/dL Normal 32.0-35.0 [facility] Comment on above: Performed By: #### L [id number] ####[facility] ([facility])[address] [place] [address] Hematocrit (Bld) [Volume fraction] 34.1 % Low 39.0-50.0 [facility] Comment on above: Performed By: #### L [id number] ####[facility] ([facility])[address] [place] [address] Hemoglobin (Bld) [Mass/Vol] 11.3 g/dL Low 13.0-17.0 [facility] Comment on above: Performed By: #### L [id number] ####[facility] (BEAKER)[address] [place] [address] MCH (RBC) [Entitic mass] 30.6 pg Normal 27.0-33.0 [facility] Comment on above: Performed By: #### L [id number] ####[facility] (BEAKER)[address] [place] [address] MCV (RBC) [Entitic vol] 92.4 fL Normal 82.0-98.0 [facility] Comment on above: Performed By: #### L [id number] ####[facility] ([facility])[address] [place] [address] PLATELETS (10*3/UL) IN BLOOD AUTOMATED COUNT 173 10*3/uL Normal 150-400 [facility] Comment on above: Performed By: #### L [id number] ####[facility] ([facility])[address] [place] [address] RBC (Bld) [#/Vol] 3.69 10*6/uL Low 4.20-5.70 [facility] Comment on above: Performed By: #### L [id number] ####[facility] ([facility])[address] [place] [address] WBC (Bld) [#/Vol] 6.07 10*3/uL Normal 4.00-10.60 [facility] Comment on above: Performed By: #### L [id number] ####[facility] ([facility])[address] [place] [address] HP 04-08-2025 -- Attestation signed by Sarah Tolliver MD [...] his baseline creatinine. Sarah Tolliver MD, MPH, [facility], [facility], [facility] Interventional Cardiology Pager Email: [email or web address] History Of Present Illness Kel Castillo is a 69 y.o. male presenting initally in clinic with leg pain. He has an extensive PMH of CAD s/p 3V CABG in 2009, CKD 4, PAD, HTN, HLD, COPD. His last cath was in 2019 which showed severe ivanof bay CAD, patent SPRAGUE-LAD and SVG-OM but occluded radial-PDA. 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 His last TTE in 02/19/25 notes [...] has a past medical history of Cancer (CMS/HCC), Coronary artery disease, Hyperlipidemia, and Hypertension. Surgical [...] aortogram w/ bilateral angiography Evgeny Arceo MD Business Continuity Manager, PGY-4 [facility] 04/08/25 9:15 AM [1] Medications Prior to [...] fluticasone-umeclidin- vilanter (Huy (more content not included)... [facility] NURSNOTEon 04-08-2025 NURSNOTE RN educated pt on d/ [...] off of unit with all of belongings. [facility] Orders Onlyon 04-08-2025 Orders Only [id number] Kel Castillo 1955 M Date Provider Department Center 04/08/2025 REGINA JONES [facility] MO HeartVAS Family History Problem Relation Age of Onset Diabetes Mother Family Status - Relation Status Age at Mother [facility] CNPNon 04-05-2025 CNPN Telephone (AGCARDPOB ) SAMIR CASTILLO ([id number]) 1955 M Date Time Provider Department 04/05/25 BILL GANT AGCARDPOB During your visit today, we recorded the following information about you: Mariana Wheeler LPN 04/05/2025 4:03 PM Signed Chest x-ray results received from [email or web address]. Scanned in for review. 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 Problem List As Of Date 04/05/2025 Noted Resolved Dyspnea and respiratory abnormalities [R06.00, *02/09/2022 Recurrent major depression in partial remission*04/12/2022 MCI (mild cognitive impairment) [G31.84] 04/12/2022 Encounter Status:Closed by MARIANA WHEELER on 04/05/25 Normal [facility] XR CHEST 2 VWSon 04-05-2025 XR [...] Valverde MD on 04/05/2025 2:41 PM Normal [facility] MR CERVICAL SPINE WO CONTon [...] Swain MD on 04/03/2025 12:02 PM Normal [facility] CCF NT-PROBNP SERPL-MCNCon 0 04-01-2025 Natriuretic peptide B (Bld) [Mass/Vol] 4813 pg/mL High NINF - 125 pg/mL [facility] Specimen Type: BLOOD SPECIMEN Ordering Facility: [facility] Address: [facility] [place] [address] Original Ordering Provider: BILL GANT [facility] CNOVon 04-01-2025 CNOV Office Visit (AGCARDPOB) SAMIR CASTILLO ([id number]) 1955 M Date Time Provider Department 04/01/25 [...] a new patient visit. He lives in [place] and gets most of his care in [place] at [facility] but just wants a second opinion on [...] supplemental oxygen. He has not seen a credit and collection manager recently and has not had any pulmonary [...] family for transportation. 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 He quit smoking 40 [...] 1/2 TABLETS BY MOUTH EVERY DAY omega 4-oat-akq-fish oil (FISH OIL) 100-160-1,000 mg cap Take [...] 10/12/2024 169 (more content not included)... Normal [facility] ECG B/O W INTERP (MED OFFICE )on 04-01-2025 Normal sinus rhythm nonspecific ST-T changes septal Q waves [facility] NT PRO BNPon 08-21-2025 Natriuretic peptide.B prohormone N-Terminal [Mass/Vol] 4813 pg/mL High NINF - 125 pg/mL [facility] NT-proBNP SerPl-mCncon 04-01 Natriuretic peptide.B prohormone N-Terminal [Mass/Vol] 4813 pg/mL High <125 [facility] Comment on above: Order Comment: Speci men Type: BLOOD SPECIMEN Ordering Facility: [facility] Address: [facility] [place] [address] Performed By: #### 3 [id number] #### [facility] CLIA [id number] [address] [place] [address] [place] No Panel Informationon 04-01 Interpretation and review of laboratory results Abnormal [facility] 36on 03-11-2025 36 Spoke with daughter and informed her I would put orders in and [facility] would be contacting her to set this up. I advised her her father would need lab orders about 1 week prior to scheduled procedure. She verbalized understanding. Orders entered and faxed to [facility]. [facility] 36 Spoke with his daughter Nini. She says he's having extreme leg pain . You aren't here in [place] again for another 4 weeks. Daughter would like to proceed with LE angiogram if that's ok with you? [facility] 36 I received a call fr om radiology at [facility]. This patient is here now for CTA abdomen/pelvis. Due to elevated s. creatinine (2.07, GFR 32), the test was unable to be performed. Would you like him to try again? How long should he wait to get it rescheduled? Thanks. [facility] Orders Onlyon 03-11-2025 Orders Only [id number] Kel Castillo 1955 M Date Provider Department Center 03/11/2025 Ruben-MELODY OLIVA [facility]I [facility] Family History Problem Relation Age of Onset Diabetes Mother Family Status - Relation Status Age at Mother [facility] CREATININEon 03-11-2025 Creatinine [Mass/Vol] 2.07 mg/dL High 0.70 - 1.30 mg/dL [facility] GFR/1.73 sq M.predicted CKD-EPI (S/P/Bld) [Vol rate/Area] 39 Low >=60 mL/min/1.73m 2 [facility] Interpretation and review of laboratory results Abnormal [facility] EGFR-NON AF GUATEMALAN 32 Low >=60 mL/min/1.73m 2 [facility] CLINISYNC [facility] 36on 02-25-2025 36 See telephone note o n 02/24/[address] Tolliver. [facility] 36on 02-24-2025 36 Regarding HUBER's performed on 02/18/2025: MD Melody Juarez MA If the patient is having leg pain, please order an abdominal CTA with run offs (bilateral lower extremity angiography) Thanks. Spoke with patient's daughter and she states he's having lots of leg pain. Told her Dr. Tolliver would like further testing and she agreed. Order faxed to [facility]. Daughter verbalized understanding. [facility] 36 Spoke to daughter advised her of Dr. Levi ECHO findings. Daughter verbalized understanding. Daughter is requesting results of HUBER'S advised daughter as soon as Reviews them we will call her with the results. Daughter states she is very concerned with what she read on [email or web address] about HUBER test results [facility] SEGMENTAL BLOOD PRESSUREon 0 02-23-2025 [place] [address] Cardiology Report Signed Patient: KEL CASTILLO Jr. MR#: [id number] : 1955 Acct:[id number] Age/Sex: 69 / M ADM Date: 02/18/25 Loc: CARD Attending Dr: Sarah Tolliver M.D. Ordering Physician: Sarah Tolliver M.D. Date of Service: 02/18/25 Procedure(s): CA segmental UE or LE LEENA Accession Number(s): [id number] cc: Susan Watson NP; Sarah Tolliver M.D. [facility] Test Date: 2025-02-18 Pat Name: KEL CASTILLO Department: Room: - Gender: Male Barrel Washer Machine: : 1955 Requested By: SARAH TOLLIVER Order Number: [id number] Reading MD: SARAH TOLLIVER Interpretive Statements Bilateral, moderately reduced ankle-brachial indices. 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 Recommend further imaging with CT or invasive angiography. Electronically Signed On 02-23-2025 12:52:03 EDT by SARAH TOLLIVER Dictated By: Sarah Tolliver M.D. Signed By: 02/23/25 1252 02/23/25 1252 DD/ 0841 TD/TT: Transformer Builder: [facility] Radiology, Radiologist, MD - 02/23/2025 [place] [address] Cardiology Report Signed Patient: KEL CASTILLO Jr. MR#: [id number] : 1955 Acct:[id number] Age/Sex: 69 / M ADM Date: 02/18/25 Loc: CARD Attending Dr: Sarah Tolliver M.D. Ordering Physician: Sarah Tolliver M.D. Date of Service: 02/18/25 Procedure(s): CA segmental UE or LE LEENA Accession Number(s): [id number] cc: Susan Watson EXTRUSION DIE CORRECTOR; Sarah Tolliver M.D. [facility] Test Date: 2025-02-18 Pat Name: KEL CASTILLO Department: Room: - Gender: Male Barrel Washer Machine: : 1955 Requested By: SARAH TOLLIVER Order Number: [id number] Reading MD: SARAH TOLLIVER Interpretive Statements Bilateral, moderately reduced ankle-brachial indices. 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 Recommend further imaging with CT or invasive angiography. Electronically Signed On 02-23-2025 12:52:03 EDT by SARAH TOLLIVER Dictated By: Sarah Tolliver M.D. Signed By: 02/23/25 1252 02/23/25 1252 DD/ 0841 TD/TT: Transformer Builder: EDWIN Singer SEGMENTAL BLOOD PRESSUREOrde red By: Radiologist Radiology on 02-23-2025 [facility] [employer] Work Phone: 36on 02-22-2025 36 Patient's daughter called asking about result of echo. It was just scanned into you about 10 minutes ago. She saw the result from [facility] portal Saturday night and was concerned when she saw the word severe in the result. Daughter told me she called the [facility] physician sanitation inspector Saturday night. I told her it was fine to wait until you reviewed result and I would call her. Thanks. Normal [facility] Telephoneon 02-22-2025 Telephone [phone] Kel Castillo 1955 M Date Provider Department Center 02/22/[address] [place], [place] [address]MELODY SMITH [facility] Family History Problem Relation Age of Onset Diabetes Mother Family Status - Relation Status Age at Mother [facility] CA ECHO DOPPLER COMPLETEon 0 02-19-2025 [place] [address] Cardiology Report Signed Patient: KEL CASTILLO Jr. MR#: [id number] : 1955 Acct:[id number] Age/Sex: 69 / M ADM Date: 02/18/25 Loc: CARD Attending Dr: Sarah Tolliver M.D. Ordering Physician: Sarah Tolliver M.D. Date of Service: 02/18/25 Procedure(s): CA echo doppler complete Accession Number(s): [id number] cc: Susan Watson EXTRUSION DIE CORRECTOR; Sarah Tolliver M.D. Patient Name: KEL CASTILLO MR#: [id number] : 1955 Exam Date: 02/18/2025 Ordering Doctor: [...] Area (VTI): 2.12 cm2, 2.12 cm2 Deceleration [place]: Pressure Half-Time: Peak Velocity(Antegrade Flow): 1.47 m/s Peak Gradient(Antegrade Flow): 8.67 mm[Hg] Mean Velocity(Antegrade Flow): 0.98 m/s Mean Gradient(Antegrade Flow): 4.49 mm[Hg] Velocity Time Integral: 37.64 cm Tricuspid Valve Peak Velocity (Regurgitant Flow): 2.39 m/s, 3.11 m/s, 3.28 m/s Peak Velocity: Pulmonic Valve Mean Gradient: Mean Velocity: (more content not included)... [facility] Radiology, Radiologist, MD - 02/19/2025 [place] [address] Cardiology Report Signed Patient: KEL CASTILLO Jr. MR#: [id number] : 1955 Acct:[id number] Age/Sex: 69 / M ADM Date: 02/18/25 Loc: CARD Attending Dr: Sarah Tolliver M.D. Ordering Physician: Sarah Tolliver M.D. Date of Service: 02/18/25 Procedure(s): CA echo doppler complete Accession Number(s): [id number] cc: Susan [employer] EXTRUSION DIE CORRECTOR; Sarah Tolliver M.D. Patient Name: KEL CASTILLO MR#: [id number] : 1955 Exam Date: 02/18/2025 Ordering Doctor: [...] Area (VTI): 2.12 cm2, 2.12 cm2 Deceleration [place]: Pressure Half-Time: Peak Velocity(Antegrade Flow): 1.47 m/s [...] M.D. Signed By: 02/19/251822 DD/ 21 TD/TT: Transformer Builder: [facility] Radiology Study observation (narrative) [facility] CA ECHO DOPPLER COMPLETEOrde red By: Radiologist Radiology on 02-19-2025 [facility] Work Phone: SEGMENTAL BLOOD PRESSUREon 0 02-18-2025 Radiology Study observation (narrative) [facility] CBC (NO DIFF)on 01-12-2025 Erythrocyte distribution width (RBC) [Ratio] 14.9 % Normal 11.5-15 [facility] Comment on above: Performed By: #### U A #### [facility] ([id number]) [address] [facility], [address] [place] [address] Hematocrit (Bld) [Volume fraction] 34.1 % Low 39-50 [facility] Comment on above: Performed By: #### U A #### [facility] ([id number]) [address], [address] [place] [address] Hemoglobin (Bld) [Mass/Vol] 11.5 g/dL Low 13-17 [facility] Comment on above: Performed By: #### U A #### [facility] ([id number]) [address], [address] [place] [address] MCH (RBC) [Entitic mass] 30.6 pg Normal 27-34 [facility] Comment on above: Performed By: #### U A #### [facility] ([id number]) [address], [address] [place] [address] MCHC (RBC) [Mass/Vol] 33.6 g/dL Normal 32-36 [facility] Comment on above: Performed By: #### U A #### [facility] ([id number]) [address], [address] [place] [address] MCV (RBC) [Entitic vol] 91 fL Normal 80-100 [facility] Comment on above: Performed By: #### U A #### [facility] ([id number]) [address], [address] [place] [address] Platelet mean volume (Bld) [Entitic vol] 7.5 fL Normal 7-12 [facility] Comment on above: Performed By: #### U A #### [facility] ([id number]) [address], [address] [place] [address] Platelets (Bld) [#/Vol] 122 10*3/uL Low 150-450 [facility] Comment on above: Performed By: #### U A #### [facility] ([id number]) [address], [address] [place] [address] RBC COUNT 3.75 X10E12/L Low 4.1-5.7 [facility] Comment on above: Performed By: #### U A #### [facility] ([id number]) [address], [address] [place] [address] WBC (Bld) [#/Vol] 5.5 10*3/uL Normal 4-11 [facility] Comment on above: Performed By: #### U A #### [facility] ([id number]) [address], [address] [place] [address] MAGNESIUMon 01-12-2025 Magnesium [Mass/Vol] 2.0 mg/dL Normal 1.8-2.6 [facility] Comment on above: Performed By: #### U A #### [facility] ([id number]) [address], [address] [place] [address] MICROALBUMIN / CREATININE UR INE RATIOon 01-12-2025 Albumin DL <= 20 mg/L (U) [Mass/Vol] 0.9 mg/dL Normal 0.0-1.9 [facility] Comment on above: Performed By: #### C BC, 6-4, 2730-8, 9, 8, 26972- 6, FEPR, 87925-2, LIVR, 13702-7, RENAL, 3084-1 #### [facility] ([id number]) [address], [address] [place] [address] MALB/CREAT RATIO 6.8 mg/g Normal 0.0-30.0 [facility] Comment on above: Performed By: #### C BC, 6-4, 2730-8, 9, 8, 49304- 6, FEPR, 19337-1, LIVR, 26264-2, RENAL, 3084-1 #### [facility] ([id number]) [address], [address] [place] [address] URINE CREATININE,RDM 132.37 mg/dL Normal [facility] Comment on above: Performed By: #### C BC, 2275-4, 8, 2132-9, 2284-8, 18712- 6, FEPR, 72207-5, LIVR, 59123-2, RENAL, 3084-1 #### [facility] ([id number]) [address], [address] [place] [address] RENAL PANELon 01-12-2025 Albumin [Mass/Vol] 4.1 g/dL Normal 3.2-5.3 [facility] Comment on above: Performed By: #### U A #### [facility] ([id number]) [address], [address] [place] [address] Anion gap [Moles/Vol] 9 mmol/L Normal 5-15 [facility] Comment on above: Performed By: #### U A #### [facility] ([id number]) [address], [address] [place] [address] Calcium [Mass/Vol] 9.1 mg/dL Normal 8.5-10.5 [facility] Comment on above: Performed By: #### U A #### [facility] ([id number]) [address], [address] [place] [address] Chloride [Moles/Vol] 110 mmol/L High 98-109 [facility] Comment on above: Performed By: #### U A #### [facility] ([id number]) [address], [address] [place] [address] CO2 [Moles/Vol] 26 mmol/L Normal 22-32 [facility] Comment on above: Performed By: #### U A #### [facility] ([id number]) [address], [address] [place] [address] Creatinine [Mass/Vol] 1.87 mg/dL High 0.60-1.30 [facility] Comment on above: Result Comment: METH OD TRACEABLE TO IDMS STANDARD Performed By: #### U A #### [facility] ([id number]) [address], [address] [place] [address] GFR/1.73 sq M.predicted among non-blacks MDRD (S/P/Bld) [Vol rate/Area] 38 mL/min/{1.73_m2} Low >=60 [facility] Comment on above: Result Comment: Repo rted eGFR is based on the CKD-EPI 2020 equation that does not use a race coefficient. Performed By: #### U A #### [facility] ([id number]) [address], [address] [place] [address] Glucose [Mass/Vol] 93 mg/dL Normal 65-99 [facility] Comment on above: Performed By: #### U A #### [facility] ([id number]) [address] [address] [place] [address] Phosphate [Mass/Vol] 4.0 mg/dL Normal 2.4-4.9 [facility] Comment on above: Performed By: #### U A #### [facility] ([id number]) [address] [address] [place] [address] Potassium [Moles/Vol] 4.3 mmol/L Normal 3.5-5.0 [facility] Comment on above: Performed By: #### U A #### [facility] ([id number]) [address], [address] [place] [address] Sodium [Moles/Vol] 145 mmol/L Normal 134-146 [facility] Comment on above: Performed By: #### U A #### [facility] ([id number]) [address] [address] [place] [address] Urea nitrogen [Mass/Vol] 30 mg/dL High 5-27 [facility] Comment on above: Performed By: #### U A #### [facility] ([id number]) [address] [address] [place] [address] URINALYSISon 01-12-2025 Bilirubin Ql (U) Negative Normal Negative [facility] Comment on above: Performed By: #### U A #### [facility] ([id number]) [address] [place] [address], [address] [place] [address] BLOOD/HGB Negative Normal Negative [facility] Comment on above: Performed By: #### U A #### [facility] ([id number]) [address] [place] [address], [address] [place] [address] Color (U) Yellow Normal Yellow, Colorless [facility] Comment on above: Performed By: #### U A #### [facility] ([id number]) [address] [place] [address], [address] [place] [address] Glucose Ql (U) Negative Normal Negative [facility] Comment on above: Performed By: #### U A #### [facility] ([id number]) [address] [place] [address], [address] [place] [address] Ketones Ql (U) Negative Normal Negative [facility] Comment on above: Performed By: #### U A #### [facility] ([id number]) [address] [place] [address], [address] [place] [address] Leukocyte esterase Test strip Ql (U) Negative Normal Negative [facility] Comment on above: Performed By: #### U A #### [facility] ([id number]) [address] [place] [address], [address] [place] [address] Nitrite Ql (U) Negative Normal Negative [facility] Comment on above: Performed By: #### U A #### [facility] ([id number]) [address] [place] [address], [address] [place] [address] PH,URINE 6.0 Normal 5.0-8.5 [facility] Comment on above: Performed By: #### U A #### [facility] ([id number]) [address] [place] [address], [address] [place] [address] Protein Ql (U) Negative Normal Negative [facility] Comment on above: Performed By: #### U A #### [facility] ([id number]) [address], [address] [place] [address] Specific gravity (U) [Rel density] 1.018 Normal 1.003-1.035 [facility] Comment on above: Performed By: #### U A #### [facility] ([id number]) [address], [address] [place] [address] TURBIDITY Clear Normal Clear [facility] Comment on above: Performed By: #### U A #### [facility] ([id number]) [address], [address] [place] [address] UROBILINOGEN <1.1 eu/dL Normal <1.1 eu/dL [facility] Comment on above: Performed By: #### U A #### [facility] ([id number]) [address], [address] [place] [address] XR SPINE CERVICAL 3 VWS OR L [...] Wild MD on 01/12/2025 12:57 AM Normal [facility] COMPLETE BLOOD COUNTon 10-20 Erythrocyte distribution width (RBC) [Ratio] 15.0 % Normal 11.5-15.0 [facility] Comment on above: Performed By: #### C BC, 2276-4, 1-8, 2-9, 4-8, 94053- 6, FEPR, 99467-7, LIVR, 42374-4, RENAL, 3084-1 #### [facility] ([id number]) [address], [address] [place] [address] Hematocrit (Bld) [Volume fraction] 36.4 % Low 39-49 [facility] Comment on above: Performed By: #### C BC, 6-4, 2730-8, 2131-9, 2283-8, 52609- 6, FEPR, 52065-4, LIVR, 93926-6, RENAL, 3084-1 #### [facility] ([id number]) [address], [address] [place] [address] Hemoglobin (Bld) [Mass/Vol] 12.5 g/dL Low 13.0-17.0 [facility] Comment on above: Performed By: #### C BC, 2275-4, 2730-8, 2131-9, 2283-8, 79668- 6, FEPR, 00742-0, LIVR, 77616-3, RENAL, 3084-1 #### [facility] ([id number]) [address], [address] [place] [address] MCH (RBC) [Entitic mass] 30.8 pg Normal 27-34 [facility] Comment on above: Performed By: #### C BC, 6-4, 2730-8, 2131-9, 2283-8, 05009- 6, FEPR, 66556-3, LIVR, 23144-3, RENAL, 3084-1 #### [facility] ([id number]) [address], [address] [place] [address] MCHC (RBC) [Mass/Vol] 34.4 g/dL Normal 32-36 [facility] Comment on above: Performed By: #### C BC, 2275-4, 2730-8, 2132-9, 2284-8, 13614- 6, FEPR, 90429-2, LIVR, 60125-2, RENAL, 3084-1 #### [facility] ([id number]) [address], [address] [place] [address] MCV (RBC) [Entitic vol] 89 fL Normal 80-100 [facility] Comment on above: Performed By: #### C BC, 2275-4, 8, 2132-04, 2284-03, 15909- 6, FEPR, 19948-7, LIVR, 61354-9, RENAL, 3084-1 #### [facility] ([id number]) [address] [facility], [address] [place] [address] Platelet mean volume (Bld) [Entitic vol] 7.4 fL Normal 7-12 [facility] Comment on above: Performed By: #### C , 2275-, 2731-03, 2132-04, 2284-03, 78547- 6, FEPR, 05899-0, LIVR, 72423-9, RENAL, 3084-1 #### [facility] ([id number]) [address] [facility], [address] [place] [address] Platelets (Bld) [#/Vol] 145 10*3/uL Low 150-450 [facility] Comment on above: Performed By: #### C JENNY, 2275-, 2731-03, 2132-04, 8, 80073- 6, FEPR, 29546-8, LIVR, 41159-9, RENAL, 3084-1 #### [facility] ([id number]) [address], [address] [place] [address] RBC COUNT 4.08 X10E12/L Low 4.10-5.70 [facility] Comment on above: Performed By: #### C BC, 2275-, 2730-8, 2132-04, 8, 78177- 6, FEPR, 66875-8, LIVR, 10554-7, RENAL, 3084-1 #### [facility] ([id number]) [address] [facility], [address] [place] [address] WBC (Bld) [#/Vol] 5.3 10*3/uL Normal 4.0-11.0 [facility] Comment on above: Performed By: #### C BC, 6-4, 2730-8, 2131-9, 2283-8, 57391- 6, FEPR, 48269-0, LIVR, 19362-3, RENAL, 3084-1 #### [facility] ([id number]) [address] [facility], [address] [place] [address] FERRITINon 10-20-2024 Ferritin [Mass/Vol] 67 ng/mL Normal 24-336 [facility] Comment on above: Performed By: #### C BC, 6-4, 2730-8, 9, 2283-8, 47159- 6, FEPR, 38154-2, LIVR, 65902-6, RENAL, 3084-1 #### [facility] ([id number]) [address] [facility], [address] [place] [address] Folate [Mass/Vol]on 10-21-19 25 FOLIC ACID 24.5 ng/mL Normal >5.8 [facility] Comment on above: Result Comment: NEW REFERENCE RANGE Performed By: #### C BC, 6-4, 2730-8, 9, 2283-8, 02850-2, FEPR, 80049-6, LIVR, 01543-6, RENAL, 3084-1 #### [facility] ([id number]) [address] [facility], [address] [place] [address] IRON PROFILEon 10-20-2024 Iron [Mass/Vol] 75 ug/dL Normal 50-212 [facility] Comment on above: Performed By: #### C BC, 6-4, 2730-8, 2132-9, 2284-8, 22603- 6, FEPR, 95428-8, LIVR, 97162-7, RENAL, 3084-1 #### [facility] ([id number]) [address] [facility], [address] [place] [address] IRON BINDING 392 ug/dL Normal 250-425 [facility] Comment on above: Performed By: #### C BC, 2276-4, 2731-8, 2132-9, 2284-8, 73925- 6, FEPR, 79844-1, LIVR, 16199-0, RENAL, 3084-1 #### [facility] ([id number]) [address] [facility], [address] [place] [address] IRON SATURATION 19 % SATURATION Low 20-50 [facility] Comment on above: Performed By: #### C BC, 2276-4, 2731-8, 2-9, 2284-8, 17449- 6, FEPR, 61259-5, LIVR, 79918-9, RENAL, 3084-1 #### [facility] ([id number]) [address] [facility], [address] [place] [address] LIVER PANELon 10-20-2024 Albumin [Mass/Vol] 4.3 g/dL Normal 3.2-5.3 [facility] Comment on above: Performed By: #### U A #### [facility] ([id number]) [address] [place] [address], [address] [place] [address] ALP [Catalytic activity/Vol] 48 U/L Normal 39-130 [facility] Comment on above: Performed By: #### U A #### [facility] ([id number]) [address] [place] [address], [address] [place] [address] ALT [Catalytic activity/Vol] 28 U/L Normal 0-40 [facility] Comment on above: Performed By: #### U A #### [facility] ([id number]) [address] [place] [address], [address] [place] [address] AST [Catalytic activity/Vol] 33 U/L Normal 0-41 [facility] Comment on above: Performed By: #### U A #### [facility] ([id number]) [address] [place] [address] Bilirubin [Mass/Vol] 0.6 mg/dL Normal 0.3-1.2 [facility] Comment on above: Performed By: #### U A #### [facility] ([id number]) [address] [facility] [address] [place] [address] Bilirubin.direct [Mass/Vol] 0.2 mg/dL Normal 0.0-0.4 [facility] Comment on above: Performed By: #### U A #### [facility] ([id number]) [address] [address] Protein [Mass/Vol] 6.7 g/dL Normal 6.0-8.0 [facility] Comment on above: Performed By: #### U A #### [facility] ([id number]) [address] [address] Lipid 1996 panelon 5 Cholesterol [Mass/Vol] 119 mg/dL Low 150-200 [facility] Comment on above: Performed By: #### C BC, 2276-4, 2731-8, 2-9, 2284-8, 43021- 6, FEPR, 93950-2, LIVR, 31886-8, RENAL, 3084-1 #### [facility] ([id number]) [address] [facility] [address] [place] [address] Cholesterol in HDL [Mass/Vol] 42 mg/dL Normal >39 [facility] Comment on above: Result Comment: HDL <40 mg/dL - High Risk HDL > or = 40mg/dL- Desirable HDL >60 mg/dL - Negative Risk Performed By: #### Ben ALVARADO, 6-4, 1-8, 2131-9, 2283-8, 00541-4, FEPR, 09450-9, LIVR, 50896-7, RENAL, 3084-1 #### [facility] ([id number]) [address], [address] [place] [address] Cholesterol in LDL [Mass/Vol] 52 mg/dL Normal <130 [facility] Comment on above: Result Comment: LDL <100 mg/dL - Desirable LDL >160 mg/dL - High Risk Performed By: #### Ben ALVARADO, 6-4, 2730-8, 2131-9, 2283-8, 17092-2, FEPR, 94865-0, LIVR, 31817-0, RENAL, 3084-1 #### [facility] ([id number]) [address], [address] [place] [address] Cholesterol in VLDL [Mass/Vol] 25 mg/dL Normal 0-30 [facility] Comment on above: Performed By: #### Ben ALVARADO, 6-4, 1-8, 2131-9, 2283-8, 13470- 6, FEPR, 28651-9, LIVR, 49980-1, RENAL, 3084-1 #### [facility] ([id number]) [address], [address] [place] [address] CHOLESTEROL:HDL 2.8 Normal 1.0-5.0 [facility] Comment on above: Performed By: #### Ben ALVARADO, 6-4, 2731-8, 2132-9, 2284-8, 36035- 6, FEPR, 78069-9, LIVR, 82119-4, RENAL, 3084-1 #### [facility] ([id number]) [address], [address] [place] [address] Triglyceride [Mass/Vol] 125 mg/dL Normal 27-150 [facility] Comment on above: Performed By: #### C BC, 2276-4, 2731-8, 2132-9, 2284-8, 12338- 6, FEPR, 53858-2, LIVR, 85708-5, RENAL, 3084-1 #### [facility] ([id number]) [address], [address] [place] [address] MAGNESIUMon 10-20-2024 Magnesium [Mass/Vol] 2.0 mg/dL Normal 1.8-2.6 [facility] Comment on above: Performed By: #### U A #### [facility] ([id number]) [address], [address] [place] [address] PROTEIN CREAT RATIOon 2024 RANDOM URINE PROTEIN 170 mg/L High <120 [facility] Comment on above: Performed By: #### U A #### [facility] ([id number]) [address], [address] [place] [address] U/PRO/MEDICAL PHYSIOLOGIST RATIO CALC 0.09 Normal <0.2 [facility] Comment on above: Result Comment: Neph rotic Syndrome is associated with ratios >3.5 Performed By: #### U A #### [facility] ([id number]) [address], [address] [place] [address] URINE CREATININE,RDM 199.09 mg/dL Normal [facility] Comment on above: Performed By: #### U A #### [facility] ([id number]) [address], [address] [place] [address] Parathyrin.intact [Mass/Vol] on 10-20-2024 PTH INTACT 48 pg/mL Normal 12-88 [facility] Comment on above: Performed By: #### C BC, 2276-4, 2731-8, 2132-9, 2284-8, 41464- 6, FEPR, 58441-5, LIVR, 27153-1, RENAL, 3084-1 #### [facility] ([id number]) [address], [address] [place] [address] RENAL PANELon 10-20-2024 Anion gap [Moles/Vol] 13 mmol/L Normal 5-15 [facility] Comment on above: Performed By: #### U A #### [facility] ([id number]) [address] [address] [place] [address] Calcium [Mass/Vol] 9.2 mg/dL Normal 8.5-10.5 [facility] Comment on above: Performed By: #### U A #### [facility] ([id number]) [address] [address] [place] [address] Chloride [Moles/Vol] 107 mmol/L Normal 98-109 [facility] Comment on above: Performed By: #### U A #### [facility] ([id number]) [address] [address] [place] [address] CO2 [Moles/Vol] 21 mmol/L Low 22-32 [facility] Comment on above: Performed By: #### U A #### [facility] ([id number]) [address] [address] [place] [address] Creatinine [Mass/Vol] 2.23 mg/dL High 0.60-1.30 [facility] Comment on above: Result Comment: METH OD TRACEABLE TO IDMS STANDARD Performed By: #### U A #### [facility] ([id number]) [address] [address] [place] [address] GFR/1.73 sq M.predicted among non-blacks MDRD (S/P/Bld) [Vol rate/Area] 31 mL/min/{1.73_m2} Low >59 [facility] Comment on above: Result Comment: Reported eGFR is based on the CKD-EPI 2020 equation that does not use a race coefficient. Performed By: #### U A #### [facility] ([id number]) [address], [address] [place] [address] Glucose [Mass/Vol] 96 mg/dL Normal 65-99 [facility] Comment on above: Performed By: #### U A #### [facility] ([id number]) [address], [address] [place] [address] Phosphate [Mass/Vol] 4.7 mg/dL Normal 2.4-4.9 [facility] Comment on above: Performed By: #### U A #### [facility] ([id number]) [address], [address] [place] [address] Potassium [Moles/Vol] 4.4 mmol/L Normal 3.5-5.0 [facility] Comment on above: Performed By: #### U A #### [facility] ([id number]) [address], [address] [place] [address] Sodium [Moles/Vol] 141 mmol/L Normal 134-146 [facility] Comment on above: Performed By: #### U A #### [facility] ([id number]) [address], [address] [place] [address] Urea nitrogen [Mass/Vol] 28 mg/dL High 5-27 [facility] Comment on above: Performed By: #### U A #### [facility] ([id number]) [address] [address] [place] [address] URIC ACIDon 10-20-2024 Urate [Mass/Vol] 6.2 mg/dL Normal 2.6-7.2 [facility] Comment on above: Performed By: #### U A #### [facility] ([id number]) [address], [address] [place] [address] URINALYSISon 10-20-2024 Bilirubin Ql (U) Negative Normal NEG [facility] Comment on above: Performed By: #### U A #### [facility] ([id number]) [address], [address] [place] [address] BLOOD/HGB Negative Normal NEG [facility] Comment on above: Performed By: #### U A #### [facility] ([id number]) [address], [address] [place] [address] Color (U) YELLOW Normal YELLOW [facility] Comment on above: Performed By: #### U A #### [facility] ([id number]) [address], [address] [place] [address] Glucose Ql (U) Negative Normal NEG [facility] Comment on above: Performed By: #### U A #### [facility] ([id number]) [address], [address] [place] [address] Hyaline casts LM Ql (Urine sed) 4 /lpf High 0-2 [facility] Comment on above: Performed By: #### U A #### [facility] ([id number]) [address], [address] [place] [address] Ketones Ql (U) Negative Normal NEG [facility] Comment on above: Performed By: #### U A #### [facility] ([id number]) [address], [address] [place] [address] Leukocyte esterase Test strip Ql (U) Negative Normal NEG [facility] Comment on above: Performed By: #### U A #### [facility] ([id number]) [address], [address] [place] [address] MUCOUS PRESENT Abnormal NONE [facility] Comment on above: Performed By: #### U A #### [facility] ([id number]) [address] [address] [place] [address] Nitrite Ql (U) Negative Normal NEG [facility] Comment on above: Performed By: #### U A #### [facility] ([id number]) [address], [address] [place] [address] pH (U) 6.0 [pH] Normal 5.0-8.5 [facility] Comment on above: Performed By: #### U A #### [facility] ([id number]) [address] [facility] [address] [place] [address] Protein Ql (U) Trace Abnormal NEG [facility] Comment on above: Performed By: #### U A #### [facility] ([id number]) [address] [facility] [address] [place] [address] R.B.CELLS 0 /hpf Normal 0-5 [facility] Comment on above: Performed By: #### U A #### [facility] ([id number]) [address] [address] [place] [address] Specific gravity (U) [Rel density] 1.023 Normal 1.003-1.035 [facility] Comment on above: Performed By: #### U A #### [facility] ([id number]) [address] [address] [place] [address] TURBIDITY CLEAR Normal CLEAR [facility] Comment on above: Performed By: #### U A #### [facility] ([id number]) [address] [address] [place] [address] Urobilinogen (U) [Mass/Vol] mg/dL Normal <1.1 [facility] Comment on above: Performed By: #### U A #### [facility] ([id number]) [address], [address] [place] [address] W.B.CELLS 2 /hpf Normal 0-5 [facility] Comment on above: Performed By: #### U A #### [facility] ([id number]) [address] [place] [address], [address] [place] [address] VITAMIN B12on 10-20-2024 Cobalamin (Vitamin B12) [Mass/Vol] 462 pg/mL Normal 180-914 [facility] Comment on above: Performed By: #### C BC, 6-4, 1-8, 2131-9, 4-8, 10566- 6, FEPR, 69940-1, LIVR, 35251-9, RENAL, 3084-1 #### [facility] ([id number]) [address] [place] [address], [address] [place] [address] Vitamin D+Metabolites [Mass/ Vol]on 10-20-2024 VITAMIN D 25 HYD TOT 72.1 ng/mL Normal 30-100 [facility] Comment on above: Result Comment: Vitamin D status 25 [place] Vitamin D Deficiency <20 ng/mL Insufficiency 20-29 ng/mL Sufficiency 30-100 ng/mL Toxicity >100 ng/mL NOTE: A pediatric reference range has not been established by the certified pharmacy tech of this kit. The [place] [employer] recommends a Vitamin D level of = or >20ng/mL in infants and children. Performed By: #### C BC, 6-4, 1-8, 2-9, 4-8, 49249-0, FEPR, 45465-5, LIVR, 81291-3, RENAL, 3084-1 #### [facility] ([id number]) [address] [place] [address], [address] [place] [address] Office Visiton 10-13-2024 Follow-up visit [id number] Kel Castillo 1955 Date Provider Department Center 10/13/2024 271-SARAH TOLLIVER [facility]I [facility] Family History Problem Relation Age of Onset Diabetes Mother Family Status - Relation Status Age at Mother Level of Service:15824 [place] OFFICE/OUTPATIENT ESTABLISHED MOD MDM 30 MIN Normal [facility] CNOVon 10-12-2024 CNOV Office Visit (NEIND4 ) SAMIR CASTILLO ([id number]) 1955 M Date Time Provider Department 10/12/24 [...] Ebony Trent DO 10/12/2024 2:47 PM Signed [facility] Follow up/ Established patient visit Individuals who were included in, or assisted with the encounter were: Samir Castillo Ebony Black DO Chief Complaint/Issues: Samir Castillo is a 69 year old male seen in the [facility] for: Memory loss [...] a coffee (more content not included)... Normal [facility] CNOVon 09-08-2024 CNOV Office Visit (NPTU10 ) SAMIR CASTILLO ([id number]) 1955 M Date Time Provider Department 09/08/24 8:00 AM MISTY POLO NPTU10 During your visit today, we recorded the following information about you: Misty Polo, PhD 09/10/2024 4:35 PM Signed [facility] Department of Neurology Section of Neuropsychology Neuropsychological Evaluation Report CONFIDENTIAL Patient: Samir Castillo Date of : 1955 Referred by: Ebony Black MD (Neurology) Education: 10 Handedness: R Language(s): Gambian Date of Evaluation: 09/08/2024 Mr. 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 One day will feel worried and next day will feel okay. Has been this way for a long time. Mental health treatment: He endorsed lo (more content not included)... Normal [facility] Lipid 1996 panelon 4 Cholesterol [Mass/Vol] 142 mg/dL Low 150 - 200 mg/dL [facility] Cholesterol in HDL [Mass/Vol] 43 mg/dL 39 - PINF mg/dL [facility] Comment on above: HDL <40 mg/dL - High Risk HDL > or = 40mg/dL- Desirable HDL >60 mg/dL - Negative Risk Cholesterol in HDL/Total Cholesterol [Mass ratio] 3.3 {ratio} 1.0 - 5.0 [facility] Comment on above: PERFORMED AT [facility] [address],[place] [address] Cholesterol in LDL [Mass/Vol] 75 mg/dL NINF - 130 mg/dL [facility] Comment on above: LDL <100 mg/dL - Desirable LDL >160 mg/dL - High Risk Cholesterol in VLDL [Mass/Vol] 24 mg/dL 0 - 30 mg/dL [facility] Interpretation and review of laboratory results Abnormal [facility] Triglyceride [Mass/Vol] 118 mg/dL 27 - 150 mg/dL [facility] Cholesterol [Mass/Vol] 142 mg/dL Low 150-200 [facility] Comment on above: Performed By: #### 2 4331-1 #### [facility] ([id number]) [address], [address] [place] [address] Cholesterol in HDL [Mass/Vol] 43 mg/dL Normal >39 [facility] Comment on above: Result Comment: HDL <40 mg/dL - High Risk HDL > or = 40mg/dL- Desirable HDL >60 mg/dL - Negative Risk Performed By: #### 2 4331-1 #### [facility] ([id number]) [address], [address] [place] [address] Cholesterol in LDL [Mass/Vol] 75 mg/dL Normal <130 [facility] Comment on above: Result Comment: LDL <100 mg/dL - Desirable LDL >160 mg/dL - High Risk Performed By: #### 2 4331-1 #### [facility] ([id number]) [address], [address] [place] [address] Cholesterol in VLDL [Mass/Vol] 24 mg/dL Normal 0-30 [facility] Comment on above: Performed By: #### 2 4331-1 #### [facility] ([id number]) [address], [address] [place] [address] CHOLESTEROL:HDL 3.3 Normal 1.0-5.0 [facility] Comment on above: Performed By: #### 2 4331-1 #### [facility] ([id number]) [address] [place] [address] Triglyceride [Mass/Vol] 118 mg/dL Normal 27-150 [facility] Comment on above: Performed By: #### 2 4331-1 #### [facility] ([id number]) [address], [address] [place] [address] CT BRAIN WO IVCONon 05-12-20 CT BRAIN WO IVCON * * *Final [...] NO CT EVIDENCE OF ACUTE INTRACRANIAL PROCESS. Transformer Builder: TERRENCE Transcribe Date/Time: May 12 2024 3:59P Dictated by : FIDEL DAVIDSON MD This examination was interpreted and the report reviewed and electronically signed by: FIDEL DAVIDSON MD on May 12 2024 4:07PM EST [id number] Normal [facility] CT Head WO contraston 2023 IMPRESSION: NO CT EVIDENCE OF ACUTE INTRACRANIAL PROCESS. Transformer Builder: TERRENCE Transcribe Date/Time: May 12 2024 3:59P Dictated by : FIDEL DAVIDSON MD This examination was interpreted and the report reviewed and electronically signed by: FIDEL DAVIDSON MD on May 12 2024 4:07PM EST [facility] * * *Final Report* * * [...] are unremarkable. Localizer images: No additional findings. [facility] Provider, Galileo Le - 05/12/2024 * * *Final Report* * [...] NO CT EVIDENCE OF ACUTE INTRACRANIAL PROCESS. Transformer Builder: PSCB Transcribe Date/Time: May 12 2024 3:59P Dictated by : FIDEL DAVIDSON MD This examination was interpreted and the report reviewed and electronically signed by: FIDEL DAVIDSON MD on May 12 2024 4:07PM EST [facility] Radiology Study observation (narrative) [facility] CT Head WO contrastOrdered B y: [facility] Provider on 05-12-2024 [facility] CNOVon 05-04-2024 CNOV Office Visit (NEIND4 ) SAMIR CASTILLO ([id number]) 1955 M Date Time Provider Department 05/04/24 9:30 AM EBONY TRENT During your visit today, we recorded the following information about you: Pulse Blood pressure Weight Height 57/minute 138/63 80.5 kg 1.676 m Ebony Trent DO 05/04/2024 10:17 PM Signed [facility] Follow up/ Established patient visit Individuals who were included in, or assisted with the encounter were: Samir Beck Mandeep Black DO Chief Complaint/Issues: Samir Castillo is a 69 year old male seen in the [facility] for: Memory loss [...] over medications. 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 isos (more content not included)... Normal [facility] CT abdomen pelvis wo conon 0 04-09-2023 CT abdomen pelvis wo con [facility] [place] [address] [place] [address] CT Scan Report Signed Patient: Kel Castillo Jr MR#: [id number] : 1955 Acct:[id number] Age/Sex: 67 / M ADM Date: 04/09/23 Loc: ER Room: Type: [facility] ER Attending Dr: Copies to: [...] Damien Negrete M.D.04/09/2023 2:28 PM Dictation Location: [place] [address] Transcribed By: [facility] 04/09/23 1428 Dictated By: Damien Negrete DO 04/09/23 142 Signed By: 04/09/23 1428 Normal [facility] Complete Blood Count Auto Di ffon 04-09-2023 Basophils (Bld) [#/Vol] 0.1 10*3/uL Normal 0.0-0.2 [facility] Comment on above: Result Comment: PERF ORMED BY: [place] [address] PATHOLOGIST TRAVEL REGISTERED NURSE NICU TROY SIGALA M.D. Performed By: #### C BC #### [address] Basophils/100 WBC (Bld) 1.0 % Normal . [facility] Comment on above: Performed By: #### C BC #### [address] Eosinophils (Bld) [#/Vol] 0.2 10*3/uL Normal 0.0-0.45 [facility] Comment on above: Performed By: #### C BC #### [address] Eosinophils/100 WBC (Bld) 2.8 % Normal . [facility] Comment on above: Performed By: #### C BC #### [address] Erythrocyte distribution width (RBC) [Ratio] 14.5 % Normal 12.0-14.8 [facility] Comment on above: Performed By: #### C BC #### [address] Hematocrit (Bld) [Volume fraction] 39.2 % Normal 38.8-50.0 [facility] Comment on above: Performed By: #### C BC #### [address] Hemoglobin (Bld) [Mass/Vol] 13.0 g/dL Normal 13.0-17.0 [facility] Comment on above: Performed By: #### C BC #### [address] Lymphocytes (Bld) [#/Vol] 1.1 10*3/uL Normal 1.00-4.8 [facility] Comment on above: Performed By: #### C BC #### [address] Lymphocytes/100 WBC (Bld) 14.1 % Normal . [facility] Comment on above: Performed By: #### C BC #### [address] MCH (RBC) [Entitic mass] 30.4 pg Normal 27.5-35.2 [facility] Comment on above: Performed By: #### C BC #### [address] MCV (RBC) [Entitic vol] 91.5 fL Normal 83.5-101 [facility] Comment on above: Performed By: #### C BC #### [address] Mean Corpuscular HGB Conc 33.2 g/dL Normal 32.5-35.6 [facility] Comment on above: Performed By: #### C BC #### [address] Monocytes (Bld) [#/Vol] 0.5 10*3/uL Normal 0.0-0.8 [facility] Comment on above: Performed By: #### C BC #### [place] [address] [place] Monocytes/100 WBC (Bld) 16.97 % Normal 0.00-20.00 [facility] Comment on above: Performed By: #### C BC #### [place] [address] [place] Monocytes/100 WBC (Bld) 6.6 % Normal . [facility] Comment on above: Performed By: #### C BC #### [address] Neutrophils (Bld) [#/Vol] 5.9 10*3/uL Normal 1.8-7.7 [facility] Comment on above: Performed By: #### C BC #### [address] Neutrophils/100 WBC (Bld) 75.5 % Normal . [facility] Comment on above: Performed By: #### C BC #### [address] NRBC% 0.0 /100{WBC} Normal 0-0.5 [facility] Comment on above: Performed By: #### C BC #### [address] Platelet mean volume (Bld) [Entitic vol] 7.5 fL Normal 6.6-10.1 [facility] Comment on above: Performed By: #### C BC #### [address] Platelets (Bld) [#/Vol] 180 10*3/uL Normal 150-450 [facility] Comment on above: Performed By: #### C BC #### [address] RBC (Bld) [#/Vol] 4.29 10*6/uL Normal 3.90-5.60 [facility] Comment on above: Performed By: #### C BC #### [address] WBC (Bld) [#/Vol] 7.8 10*3/uL Normal 4.1-10.5 [facility] Comment on above: Performed By: #### C BC #### [address] Comprehensive Metabolic Pane noe 04-09-2023 Albumin [Mass/Vol] 4.3 g/dL Normal 3.5-5.7 [facility] Comment on above: Performed By: #### P TT, LIPASE, PT, CMP #### [facility] [address] Albumin/Globulin [Mass ratio] 1.2 {ratio} Normal [facility] Comment on above: Performed By: #### P TT, LIPASE, PT, CMP #### [facility] [address] ALP [Catalytic activity/Vol] 105 U/L High 34-104 [facility] Comment on above: Performed By: #### P TT, LIPASE, PT, CMP #### [facility] [address] ALT [Catalytic activity/Vol] 61 U/L High 7-52 [facility] Comment on above: Performed By: #### P TT, LIPASE, PT, CMP #### [facility] [address] Anion gap [Moles/Vol] 12.5 mmol/L Normal 6.0-15.0 [facility] Comment on above: Performed By: #### P TT, LIPASE, PT, CMP #### [facility] [address] AST [Catalytic activity/Vol] 62 U/L High 13-39 [facility] Comment on above: Performed By: #### P TT, LIPASE, PT, CMP #### [facility] [address] Bilirubin [Mass/Vol] 0.8 mg/dL Normal 0.3-1.0 [facility] Comment on above: Performed By: #### P TT, LIPASE, PT, CMP #### [facility] [address] Calcium [Mass/Vol] 9.0 mg/dL Normal 8.6-10.3 [facility] Comment on above: Performed By: #### P TT, LIPASE, PT, CMP #### [facility] [address] [place] [address] [place] Chloride [Moles/Vol] 107 mmol/L Normal 98-107 [facility] Comment on above: Performed By: #### P TT, LIPASE, PT, CMP #### [facility] [address] CO2 [Moles/Vol] 25.1 mmol/L Normal 21.0-31.0 [facility] Comment on above: Performed By: #### P TT, LIPASE, PT, CMP #### [address] Creatinine [Mass/Vol] 1.76 mg/dL High 0.70-1.30 [facility] Comment on above: Performed By: #### P TT, LIPASE, PT, CMP #### [address] Creatinine Clr Calc Pharmacy 40.17 [facility] Comment on above: Performed By: #### P TT, LIPASE, PT, CMP #### [address] GFR/1.73 sq M.predicted MDRD (S/P/Bld) [Vol rate/Area] 41.342 mL/min/{1.73_m2} [facility] Comment on above: Performed By: #### P TT, LIPASE, PT, CMP #### [address] Globulin (S) [Mass/Vol] 3.7 g/dL [facility] Comment on above: Performed By: #### P TT, LIPASE, PT, CMP #### [address] Glucose [Mass/Vol] 89 mg/dL Normal 70-100 [facility] Comment on above: Result Comment: [place] Glucose Reference Range is dependent on time and content of last meal. Glucose of more than 200 mg/dL in a nonstressed, ambulatory subject supports the diagnosis of Diabetes Mellitus. ADA recommended reference range Performed By: #### P TT, LIPASE, PT, CMP #### [address] Potassium [Moles/Vol] 4.6 mmol/L Normal 3.5-5.1 [facility] Comment on above: Performed By: #### P TT, LIPASE, PT, CMP #### [facility] [address] [place] [address] [place] Protein [Mass/Vol] 8.0 g/dL Normal 6.4-8.9 [facility] Comment on above: Performed By: #### P TT, LIPASE, PT, CMP #### [facility] [address] [place] [address] [place] Sodium [Moles/Vol] 140 mmol/L Normal 136-145 [facility] Comment on above: Performed By: #### P TT, LIPASE, PT, CMP #### [facility] [address] Urea nitrogen [Mass/Vol] 25 mg/dL Normal 7-25 [facility] Comment on above: Performed By: #### P TT, LIPASE, PT, CMP #### [facility] [address] [place] [address] [place] Dipstick and Microscopicon 0 04-09-2023 Appearance (U) Cloudy Critically abnormal Clear [facility] Comment on above: Order Comment: Name Collection Type:: Clean-Voided Midstream Performed By: #### A DDONUAPLUS #### [place] [address] [place] Bacteria,Urine None Seen Normal None Seen [facility] Comment on above: Order Comment: Name Collection Type:: Clean-Voided Midstream Performed By: #### A DDONUAPLUS #### [facility] [address] [place] [address] [place] Bilirubin,Urine Negative Normal Negative [facility] Comment on above: Order Comment: Name Collection Type:: Clean-Voided Midstream Performed By: #### A DDONUAPLUS #### [facility] [address] [place] [address] [place] Color (U) Yellow Normal Yellow [facility] Comment on above: Order Comment: Name Collection Type:: Clean-Voided Midstream Performed By: #### A DDONUAPLUS #### [facility] [address] [place] [address] [place] Glucose Ql (U) Normal Normal Normal [facility] Comment on above: Order Comment: Name Collection Type:: Clean-Voided Midstream Performed By: #### A DDONUAPLUS #### [facility] [address] [place] [address] [place] Hyaline Casts,Urine None Seen Normal 0-8 [facility] Comment on above: Order Comment: Name Collection Type:: Clean-Voided Midstream Result Comment: PERF ORMED BY: [place] [address] PATHOLOGIST TRAVEL REGISTERED NURSE NICU TROY SIGALA M.D. Performed By: #### A DDONUAPLUS #### [address] Ketones Ql (U) Negative Normal Negative [facility] Comment on above: Order Comment: Name Collection Type:: Clean-Voided Midstream Performed By: #### A DDONUAPLUS #### [address] Leukocyte esterase Test strip Ql (U) Negative Normal Negative [facility] Comment on above: Order Comment: Name Collection Type:: Clean-Voided Midstream Performed By: #### A DDONUAPLUS #### [place] [address] [place] Nitrite,Urine Negative Normal Negative [facility] Comment on above: Order Comment: Name Collection Type:: Clean-Voided Midstream Performed By: #### A DDONUAPLUS #### [place] [address] [place] Occult Blood,Urine Negative Normal Negative [facility] Comment on above: Order Comment: Name Collection Type:: Clean-Voided Midstream Result Comment: PERF ORMED BY: [place] [address] PATHOLOGIST TRAVEL REGISTERED NURSE NICU TROY SIGALA M.D. Performed By: #### A DDONUAPLUS #### [facility] [address] [place] [address] [place] pH (U) 5.5 [pH] Normal 5.0-9.0 [facility] Comment on above: Order Comment: Name Collection Type:: Clean-Voided Midstream Performed By: #### A DDONUAPLUS #### [address] Protein,Urine Negative Normal Negative [facility] Comment on above: Order Comment: Name Collection Type:: Clean-Voided Midstream Performed By: #### A DDONUAPLUS #### [address] RBC LM.HPF (Urine sed) [#/Area] 0 /[HPF] Normal 0-4 [facility] Comment on above: Order Comment: Name Collection Type:: Clean-Voided Midstream Performed By: #### A DDONUAPLUS #### [address] Specificy Carmen,Urine 1.014 Normal 1.001-1.030 [facility] Comment on above: Order Comment: Name Collection Type:: Clean-Voided Midstream Performed By: #### A DDONUAPLUS #### [address] Squamous Epithelial Cell,Urine None Seen Normal 0-2 [facility] Comment on above: Order Comment: Name Collection Type:: Clean-Voided Midstream Performed By: #### A DDONUAPLUS #### [address] Urobilinogen,Urine Normal Normal Normal [facility] Comment on above: Order Comment: Name Collection Type:: Clean-Voided Midstream Performed By: #### A DDONUAPLUS #### [address] WBC LM.HPF (Urine sed) [#/Area] 0 /[HPF] Normal 0-4 [facility] Comment on above: Order Comment: Name Collection Type:: Clean-Voided Midstream Performed By: #### A DDONUAPLUS #### [address] Lipaseon 04-09-2023 Lipase [Catalytic activity/Vol] 92.0 U/L High 11.0-82.0 [facility] Comment on above: Result Comment: PERF ORMED BY: [place] [address] PATHOLOGIST TRAVEL REGISTERED NURSE NICU TROY SIGALA M.D. Performed By: #### P TT, LIPASE, PT, CMP #### [address] Partial Thromboplastin Timeo n 04-09-2023 aPTT Coag (Bld) [Time] 30.9 s Normal 25.1-36.5 [facility] Comment on above: Result Comment: PERF ORMED BY: [place] [address] PATHOLOGIST TRAVEL REGISTERED NURSE NICU TROY SIGALA M.D. Performed By: #### P TT, LIPASE, PT, CMP #### [address] Prothrombin Time INRon 04-09 INR Coag (PPP) [Relative time] 1.0 {INR} Normal [facility] Comment on above: Result Comment: [...] #### P TT, LIPASE, PT, CMP #### [facility] [address] [place] [address] PT Coag (PPP) [Time] 11.9 s Normal 9.0-12.9 [facility] Comment on above: Performed By: #### P TT, LIPASE, PT, CMP #### [facility] [address] [place] [address] CBC AUTO DIFFon 07-27-2022 BASO # 0.1 103/ul Normal 0.0-0.1 [facility] Comment on above: Performed By: #### C BC #### [facility] [address] [place] [address] [address] Hattie Newsome Basophils/100 WBC (Bld) 0.8 % Normal 0.2-2.0 [facility] Comment on above: Performed By: #### C BC #### [facility] [address] [place] [address] Dr. Hattie Newsome EO # 0.3 103/ul Normal 0.0-0.7 [facility] Comment on above: Performed By: #### C BC #### [facility] [address] [place] [address] Dr. Hattie Newsome Eosinophils/100 WBC (Bld) 3.2 % Normal 0.9-7.0 [facility] Comment on above: Performed By: #### C BC #### [facility] [address] [place] [address] Dr. Hattie Newsome Erythrocyte distribution width (RBC) [Ratio] 14.3 % Normal 11.0-15.0 [facility] Comment on above: Performed By: #### C BC #### [facility] [address] [place] [address] Dr. Hattie Newsome Hematocrit (Bld) [Volume fraction] 39.7 % Critically low 42.0-54.0 [facility] Comment on above: Performed By: #### C BC #### [facility] [address] [place] [address] Dr. Hattie Newsome Hemoglobin (Bld) [Mass/Vol] 13.0 g/dL Critically low 14.0-18.0 [facility] Comment on above: Performed By: #### C BC #### [facility] [address] [place] [address] Dr. Hattie Newsome IG # 0.06 10e3/ul Critically high 0.00-0.03 [facility] Comment on above: Performed By: #### C BC #### [facility] [address] [place] [address] Dr. Hattie Newsome IG % 0.8 % Critically high 0.0-0.5 [facility] Comment on above: Performed By: #### C BC #### [facility] [address] [place] [address] Dr. Hattie Newsome LYMPH # 1.3 103/ul Normal 1.2-3.8 [facility] Comment on above: Performed By: #### C BC #### [facility] [address] [place] [address] Dr. Hattie Newsome Lymphocytes/100 WBC (Bld) 16.8 % Critically low 20.5-60.0 [facility] Comment on above: Performed By: #### C BC #### [facility] [address] [place] [address] Dr. Hattie Newsome MANUAL DIFF REQ NO Normal [facility] Comment on above: Performed By: #### C BC #### [facility] [address] [place] [address] Dr. Hattie Newsome MCH (RBC) [Entitic mass] 30.5 pg Normal 25.9-34.0 [facility] Comment on above: Performed By: #### C BC #### [facility] [address] [place] [address] Dr. Hattie Newsome MCHC (RBC) [Mass/Vol] 32.7 g/dL Normal 29.9-35.2 [facility] Comment on above: Performed By: #### C BC #### [facility] [address] [place] [address] Dr. Hattie Newsome MCV (RBC) [Entitic vol] 93.2 fL Normal 80.0-94.0 [facility] Comment on above: Performed By: #### C BC #### [facility] [address] [place] [address] Dr. Hattie Newsome MONO # 0.5 103/ul Normal 0.3-0.8 [facility] Comment on above: Performed By: #### C BC #### [facility] [address] [place] [address] Dr. Hattie Newsome Monocytes/100 WBC (Bld) 7.0 % Normal 1.7-12.0 [facility] Comment on above: Performed By: #### C BC #### [facility] [address] [place] [address] Dr. Hattie Newsome NEUT # 5.5 103/ul Normal 1.4-6.5 [facility] Comment on above: Performed By: #### C BC #### [facility] [address] [address] [address] Hattie Newsome Neutrophils/100 WBC (Bld) 71.4 % Normal 43.0-75.0 [facility] Comment on above: Performed By: #### C BC #### [facility] [address] [address] [address] Hattie Newsome Platelet mean volume (Bld) [Entitic vol] 9.4 fL Critically low 9.5-13.5 [facility] Comment on above: Performed By: #### C BC #### [facility] [address] [place] [address] Dr. Hattie Newsome PLT 169 103/ul Normal 150-450 [facility] Comment on above: Performed By: #### C BC #### [facility] [address] [place] [address] Dr. Hattie Newsome RBC 4.26 106/ul Critically low 4.70-6.10 [facility] Comment on above: Performed By: #### C BC #### [facility] [address] [place] [address] Dr. Hattie Newsome WBC 7.7 103/ul Normal 4.0-11.0 [facility] Comment on above: Performed By: #### C BC #### [facility] [address] [place] [address] Dr. Hattie Newsome LIPID PROFILEon 07-27-2022 CHOL-HDL RATIO NORM SEE BELOW Normal [facility] Comment on above: Result Comment: 3.3 - 4.4 LOW RISK 4.4 - 7.1 AVERAGE RISK 7.1 - 11.0 MODERATE RISK >11.0 HIGH RISK Performed By: #### L IPID #### [facility] [address] [place] [address] Dr. Hattie Newsome Cholesterol [Mass/Vol] 131 mg/dL Normal <=200 [facility] Comment on above: Performed By: #### L IPID #### [facility] [address] [place] [address] Dr. Hattie Newsome Cholesterol in HDL [Mass/Vol] 40 mg/dL Normal 40-60 [facility] Comment on above: Performed By: #### L IPID #### [facility] [address] [place] [address] Dr. Hattie Newsome Cholesterol in LDL [Mass/Vol] 64.6 mg/dL Normal [facility] Comment on above: Performed By: #### L IPID #### [facility] [address] [address] [address] Hattie Newsome Cholesterol.total/C holesterol in HDL [Mass ratio] 3.3 {ratio} Normal [facility] Comment on above: Performed By: #### L IPID #### [facility] [address] [place] [address] Dr. Hattie Newsome HDL NORMAL > or = 60 mg/dl - LO W CARDIOVASCULAR RISK <40 mg/dl - HIGH CARDIOVASCULAR RISK Normal [facility] Comment on above: Performed By: #### L IPID #### [facility] [address] [place] [address] Dr. Hattie Newsome LDL CALC NORMAL SEE BELOW Normal [facility] Comment on above: Result Comment: <100 mg/dl OPTIMAL 100 - 129 mg/dl NEAR OR ABOVE OPTIMAL 130 - 159 mg/dl BORDERLINE HIGH 160 - 189 mg/dl HIGH >190 mg/dl VERY HIGH Performed By: #### L IPID #### [facility] [address] [place] [address] Dr. Hattie Newsome Triglyceride [Mass/Vol] 132 mg/dL Normal <=150 [facility] Comment on above: Performed By: #### L IPID #### [facility] [address] [place] [address] Dr. Hattie Newsome VLDL CALC 26.4 mg/dL Normal [facility] Comment on above: Performed By: #### L IPID #### [facility] [address] [place] [address] Dr. Hattie Newsome PARATHYROID HORMONE- RELATED PEPTIDEon 07-15-2022 PTHrP (PTH-Related Peptide) <2.0 Normal [facility] Comment on above: Result Comment: This [...] laboratory. Performed By: #### P THP #### [facility] [address] [place] [address] Dr. Hattie Newsome CBC AUTO DIFFon 07-07-2022 BASO # 0.1 103/ul Normal 0.0-0.1 [facility] Comment on above: Performed By: #### U BLANCA, CMP, MG #### [facility] [address] [place] [address] Dr. Hattie Newsome Basophils/100 WBC (Bld) 0.9 % Normal 0.2-2.0 [facility] Comment on above: Performed By: #### U BLANCA, CMP, MG #### [facility] [address] [place] [address] Dr. Hattie Newsome EO # 0.2 103/ul Normal 0.0-0.7 [facility] Comment on above: Performed By: #### U BLANCA, CMP, MG #### [facility] [address] [place] [address] Dr. Hattie Newsome Eosinophils/100 WBC (Bld) 3.4 % Normal 0.9-7.0 [facility] Comment on above: Performed By: #### U BLANCA, CMP, MG #### [facility] [address] [place] [address] Dr. Hattie Newsome Erythrocyte distribution width (RBC) [Ratio] 14.5 % Normal 11.0-15.0 [facility] Comment on above: Performed By: #### U BLANCA, CMP, MG #### [facility] [address] [place] [address] Dr. Hattie Newsome Hematocrit (Bld) [Volume fraction] 40.1 % Critically low 42.0-54.0 [facility] Comment on above: Performed By: #### U BLANCA, CMP, MG #### [facility] [address] [address] [address] Hattie Newsome Hemoglobin (Bld) [Mass/Vol] 13.6 g/dL Critically low 14.0-18.0 [facility] Comment on above: Performed By: #### U BLANCA, CMP, MG #### [facility] [address] [address] [address] Hattie Newsome IG # 0.04 10e3/ul Critically high 0.00-0.03 [facility] Comment on above: Performed By: #### U BLANCA, CMP, MG #### [facility] [address] [address] [address] Hattie Newsome IG % 0.6 % Critically high 0.0-0.5 [facility] Comment on above: Performed By: #### U BLANCA, CMP, MG #### [facility] [address] [place] [address] Dr. Hattie Newsome LYMPH # 0.9 103/ul Critically low 1.2-3.8 [facility] Comment on above: Performed By: #### U BLANCA, CMP, MG #### [facility] [address] [place] [address] Dr. Hattie Newsome Lymphocytes/100 WBC (Bld) 13.1 % Critically low 20.5-60.0 [facility] Comment on above: Performed By: #### U BLANCA, CMP, MG #### [facility] [address] [place] [address] Dr. Hattie Newsome MANUAL DIFF REQ NO Normal [facility] Comment on above: Performed By: #### U BLANCA, CMP, MG #### [facility] [address] [address] [address] Hattie Newsome MCH (RBC) [Entitic mass] 30.9 pg Normal 25.9-34.0 [facility] Comment on above: Performed By: #### U BLANCA, CMP, MG #### [facility] [address] [place] [address] Dr. Hattie Newsome MCHC (RBC) [Mass/Vol] 33.9 g/dL Normal 29.9-35.2 [facility] Comment on above: Performed By: #### U BLANCA, CMP, MG #### [facility] [address] [place] [address] Dr. Hattie Newsome MCV (RBC) [Entitic vol] 91.1 fL Normal 80.0-94.0 [facility] Comment on above: Performed By: #### U BLANCA, CMP, MG #### [facility] [address] [place] [address] Dr. Hattie Newsome MONO # 0.3 103/ul Normal 0.3-0.8 [facility] Comment on above: Performed By: #### U BLANCA, CMP, MG #### [facility] [address] [place] [address] Dr. Hattie Newsome Monocytes/100 WBC (Bld) 5.1 % Normal 1.7-12.0 [facility] Comment on above: Performed By: #### U BLANCA, CMP, MG #### [facility] [address] [place] [address] Dr. Hattie Newsome NEUT # 5.0 103/ul Normal 1.4-6.5 [facility] Comment on above: Performed By: #### U BLANCA, CMP, MG #### [facility] [address] [place] [address] Dr. Hatite Newsome Neutrophils/100 WBC (Bld) 76.9 % Critically high 43.0-75.0 [facility] Comment on above: Performed By: #### U BLANCA, CMP, MG #### [facility] [address] [place] [address] Dr. Hattie Newsome Platelet mean volume (Bld) [Entitic vol] 9.0 fL Critically low 9.5-13.5 [facility] Comment on above: Performed By: #### U BLANCA, CMP, MG #### [facility] [address] [place] [address] Dr. Hattie Newsome PLT 160 103/ul Normal 150-450 [facility] Comment on above: Performed By: #### U BLANCA, CMP, MG #### [facility] [address] [address] [address] Hattie Newsome RBC 4.40 106/ul Critically low 4.70-6.10 [facility] Comment on above: Performed By: #### U BLANCA, CMP, MG #### [facility] [address] [address] [address] Hattie Newsome WBC 6.5 103/ul Normal 4.0-11.0 [facility] Comment on above: Performed By: #### U BLANCA, CMP, MG #### [facility] [address] [address] [address] Hattie Newsome MAGNESIUMon 07-07-2022 Magnesium [Mass/Vol] 1.8 mg/dL Normal 1.8-2.4 [facility] Comment on above: Performed By: #### U BLANCA, CMP, MG #### [facility] [address] [place] [address] Dr. Hattie Newsome PROF 14(COMP METB)on 022 Albumin [Mass/Vol] 3.9 g/dL Normal 3.4-5.0 [facility] Comment on above: Performed By: #### U BLANCA, CMP, MG #### [facility] [address] [address] [address] Hattie Newsome Albumin/Globulin [Mass ratio] 1.0 {ratio} Normal [facility] Comment on above: Performed By: #### U BLANCA, CMP, MG #### [facility] [address] [address] [address] Hattie Newsome ALP [Catalytic activity/Vol] 136 U/L Critically high 46-116 [facility] Comment on above: Performed By: #### U BLANCA, CMP, MG #### [facility] [address] [address] [address] Hattie Newsome ALT [Catalytic activity/Vol] 122 U/L Critically high 16-63 [facility] Comment on above: Performed By: #### U BLANCA, CMP, MG #### [facility] [address] [address] [address] Hattie Newsome Anion gap [Moles/Vol] 12.4 mmol/L Normal [facility] Comment on above: Performed By: #### U BLANCA, CMP, MG #### [facility] [address] [address] [address] Hattie Newsome AST [Catalytic activity/Vol] 72 U/L Critically high 15-37 [facility] Comment on above: Performed By: #### U BLANCA, CMP, MG #### [facility] [address] [address] [address] Hattie Newsome Bilirubin [Mass/Vol] 0.5 mg/dL Normal 0.2-1.0 [facility] Comment on above: Performed By: #### U BLANCA, CMP, MG #### [facility] [address] [place] [address] Dr. Hattie Newsome Calcium [Mass/Vol] 9.1 mg/dL Normal 8.5-10.1 [facility] Comment on above: Performed By: #### U BLANCA, CMP, MG #### [facility] [address] [address] [address] Hattie Newsome Chloride [Moles/Vol] 106 mmol/L Normal 98-107 [facility] Comment on above: Performed By: #### U BLANCA, CMP, MG #### [facility] [address] [place] [address] Dr. Hattie Newsome CO2 [Moles/Vol] 25.9 mmol/L Normal 21.0-32.0 [facility] Comment on above: Performed By: #### U BLANCA, CMP, MG #### [facility] [address] [address] [address] Hattie Newsome Creatinine [Mass/Vol] 1.54 mg/dL Critically high 0.70-1.30 [facility] Comment on above: Performed By: #### U BLANCA, CMP, MG #### [facility] [address] [place] [address] Dr. Hattie Newsome EGFR-AF GUATEMALAN 55 mL/min/1.73m2 Critically low >=60 [facility] Comment on above: Performed By: #### U BLANCA, CMP, MG #### [facility] [address] [place] [address] Dr. Hattie Newsome EGFR-NON AF GUATEMALAN 45 mL/min/1.73m2 Critically low >=60 [facility] Comment on above: Performed By: #### U BLANCA, CMP, MG #### [facility] [address] [address] [address] Hattie Newsome Globulin (S) [Mass/Vol] 4.0 g/dL Normal [facility] Comment on above: Performed By: #### U BLANCA, CMP, MG #### [facility] [address] [address] [address] Hattie Newsome Glucose [Mass/Vol] 104 mg/dL Normal 74-[address] [facility] Comment on above: Performed By: #### U BLANCA, CMP, MG #### [facility] [address] [address] [address] Hattie Newsome Potassium [Moles/Vol] 4.3 mmol/L Normal 3.5-5.1 [facility] Comment on above: Performed By: #### U BLANCA, CMP, MG #### [facility] [address] [address] [address] Hattie Newsome Protein [Mass/Vol] 7.9 g/dL Normal 6.4-8.[address] [facility] Comment on above: Performed By: #### U BLANCA, CMP, MG #### [facility] [address] [address] [address] Hattie Newsome Sodium [Moles/Vol] 140 mmol/L Normal 136-[address] [facility] Comment on above: Performed By: #### U BLANCA, CMP, MG #### [facility] [address] [address] [address] Hattie Newsome Urea nitrogen [Mass/Vol] 14.0 mg/dL Normal 7.0-18.0 [facility] Comment on above: Performed By: #### U BLANCA, CMP, MG #### [facility] [address] [address] [address] Hattie Newsome Urea nitrogen/Creatinine [Mass ratio] 9.1 mg/mg Normal [facility] Comment on above: Performed By: #### U BLANCA, CMP, MG #### [facility] [address] [place] [address] Dr. Hattie Newsome UA RANDOMon 07-07-2022 Bilirubin Ql (U) Negative Normal NEGATIVE [facility] Comment on above: Performed By: #### U A #### [facility] [address] [place] [address] Dr. Hattie Newsome Clarity (U) CLEAR Normal CLEAR [facility] Comment on above: Performed By: #### U A #### [facility] [address] [place] [address] Dr. Hattie Newsome Color (U) YELLOW Normal YELLOW [facility] Comment on above: Performed By: #### U A #### [facility] [address] [place] [address] Dr. Hattie Newsome Glucose Ql (U) Negative Normal NEGATIVE [facility] Comment on above: Performed By: #### U A #### [facility] [address] [place] [address] Dr. Hattie Newsome Hemoglobin Ql (U) Negative Normal NEGATIVE [facility] Comment on above: Performed By: #### U A #### [facility] [address] [place] [address] Dr. Hattie Newsome Ketones Ql (U) Negative Normal NEGATIVE [facility] Comment on above: Performed By: #### U A #### [facility] [address] [place] [address] Dr. Hattie Newsome LEUKOCYTES Negative Normal NEGATIVE [facility] Comment on above: Performed By: #### U A #### [facility] [address] [place] [address] Dr. Hattie Newsome Nitrite Ql (U) Negative Normal NEGATIVE [facility] Comment on above: Performed By: #### U A #### [facility] [address] [place] [address] Dr. Hattie Newsome pH (U) 5.5 [pH] Normal 5-9 [facility] Comment on above: Performed By: #### U A #### [facility] [address] [place] [address] Dr. Hattie Newsome SPEC GRAVITY >=1.030 Abnormal 1.005-<=1.025 [facility] Comment on above: Performed By: #### U A #### [facility] [address] [place] [address] Dr. Hattie Newsome UA PROTEIN Negative Normal NEGATIVE/ TRACE [facility] Comment on above: Performed By: #### U A #### [facility] [address] [place] [address] Dr. Hattie Newsome Urobilinogen Qn (U) 1.0 {Xavier'U}/dL Normal 0.2 - 1. 0 [facility] Comment on above: Performed By: #### U A #### [facility] [address] [place] [address] Dr. Hattie Newsome URIC ACID SERUMon 07-07-2022 Urate [Mass/Vol] 6.8 mg/dL Normal 3.5-7.2 [facility] Comment on above: Performed By: #### U BLANCA, CMP, MG #### [facility] [address] [place] [address] Dr. Hattie Newsome URINE T PROTEIN CREAT RATIOo n 07-07-2022 Protein (U) [Mass/Vol] 27.5 mg/dL Critically high <=12.0 [facility] Comment on above: Performed By: #### U RTPCR #### [facility] [address] [place] [address] Dr. Hattie Newsome UR PROT CREAT RAT 0.[address] [facility] Comment on above: Performed By: #### U RTPCR #### [facility] [address] [place] [address] Dr. Hattie Newsome URINE CREAT 187.29 mg/dL Normal 20.00-300.00 [facility] Comment on above: Performed By: #### U RTPCR #### [facility] [address] [place] [address] Dr. Hattie Newsome VITAMIN D 25 OHon 07-07-2022 VIT D 25-OH 81.5 ng/mL Normal [facility] Comment on above: Performed By: #### V ITAD #### [facility] [address], [place] [address] Dr. Htatie Newsome VIT D RANGES SEE BELOW Normal [facility] Comment on above: Result Comment: <20 ng/mL Vit D deficient 20 - <30 ng/mL Vit D insufficient 30 - 100 ng/mL Vit D sufficient >100 ng/mL Potential Toxicity Performed By: #### V ITAD #### [facility] [id number] Hattie Newsome ECHOCARDIO M/2D COMPLETEon 0 02-21-2022 ECHOCARDIO M/2D COMPLETE Patient: KEL CASTILLO Exam Date: 02/21/2022 : 1955 Gender:M Ordering : DR SARAH TOLLIVER M.D. Admission #: [id number] Family : Order #: [id number] CLICK HERE TO VIEW EXAM ECHOCARDIOGRAM REPORT [...] Yepez M.D. on 02/21/2022 at 16:31 Normal [facility] No Panel Informationon 02-08 [facility] BASIC METABOLIC PANELon 09-13 Calcium [Mass/Vol] 9.2 mg/dL Normal 8.6-10.3 [facility] Comment on above: Order Comment: No: D o not add to previous draw Performed By: #### 0 0071, [id number] #### [facility] [address] [place] [address], [place] Chloride [Moles/Vol] 108 mmol/L High 98-107 [facility] Comment on above: Order Comment: No: D o not add to previous draw Performed By: #### 0 0071, [id number] #### [facility] [address] [place] [address], [place] CO2 [Moles/Vol] 26 mmol/L Normal 21-31 [facility] Comment on above: Order Comment: No: D o not add to previous draw Performed By: #### 0 0071, [id number] #### [facility] [address] [place] [address], [place] Creatinine [Mass/Vol] 1.64 mg/dL High 0.70-1.30 [facility] Comment on above: Order Comment: No: D o not add to previous draw Performed By: #### 0 0071, [id number] #### [facility] [address] [place] [address], [place] GFR/1.73 sq M predicted among blacks MDRD (S/P/Bld) [Vol rate/Area] 51 ml/min/1.73sq m Abnormal >60 [facility] Comment on above: Order Comment: No: D o not add to previous draw Performed By: #### 0 0071, [id number] #### [facility] [address] [place] [address], [facility] GFR/1.73 sq M predicted among non-blacks MDRD (S/P/Bld) [Vol rate/Area] 42 ml/min/1.73sq m Abnormal >60 [facility] Comment on above: Order Comment: No: D o not add to previous draw Performed By: #### 0 0071, [id number] #### [facility] [address] [place] [address], [facility] Glucose [Mass/Vol] 100 mg/dL Normal 70-100 [facility] Comment on above: Order Comment: No: D o not add to previous draw Performed By: #### 0 0071, [id number] #### [facility] [address] [place] [address], [facility] Potassium [Moles/Vol] 4.5 mmol/L Normal 3.5-5.1 [facility] Comment on above: Order Comment: No: D o not add to previous draw Performed By: #### 0 0071, [id number] #### [facility] [address] [place] [id number], [facility] Sodium [Moles/Vol] 139 mmol/L Normal 136-145 [facility] Comment on above: Order Comment: No: D o not add to previous draw Performed By: #### 0 0071, [id number] #### [facility] [address] [facility] [place] [address], [facility] Urea nitrogen [Mass/Vol] 15 mg/dL Normal 7-25 [facility] Comment on above: Order Comment: No: D o not add to previous draw Performed By: #### 0 0071, [id number] #### [facility] [facility] [address] [facility] [place] [address], [facility] CBC W/DIFFon 10-08-2019 ABS BASOPHILS 0.1 10*3/uL Normal 0.0-0.2 [facility] Comment on above: Order Comment: No: D o not add to previous draw Performed By: #### 0 0071, [id number] #### [facility] [address] [facility] [place] [address], [facility] ABS IMM GRANS 0.1 10*3/uL Normal 0.0-0.2 [facility] Comment on above: Order Comment: No: D o not add to previous draw Performed By: #### 0 0071, 28023 #### [facility] [address] [facility] [place] [address], [facility] ABS NEUTROPHILS 5.1 10*3/uL Normal 1.6-7.6 [facility] Comment on above: Order Comment: No: D o not add to previous draw Performed By: #### 0 0071, 16194 #### [facility] [address] [facility] [place] [address], [facility] Basophils/100 WBC (Bld) 0.8 % Normal 0.0-1.0 [facility] Comment on above: Order Comment: No: D o not add to previous draw Performed By: #### 0 0071, 71600 #### [facility] [address] [facility] [place] [address], [facility] Eosinophils (Bld) [#/Vol] 0.3 10*3/uL Normal 0.0-0.5 [facility] Comment on above: Order Comment: No: D o not add to previous draw Performed By: #### 0 0071, 00349 #### [facility] [address] [facility] [place] [address], [facility] Eosinophils/100 WBC (Bld) 3.9 % Normal 0.0-6.0 [facility] Comment on above: Order Comment: No: D o not add to previous draw Performed By: #### 0 0071, 75003 #### [facility] [address] [facility] [place] [address], [facility] Erythrocyte distribution width (RBC) [Ratio] 14.3 % Normal 11.5-15.0 [facility] Comment on above: Order Comment: No: D o not add to previous draw Performed By: #### 0 0071, 39748 #### [facility] [address] [place] [address], [facility] Hematocrit (Bld) [Volume fraction] 39.0 % Normal 39.0-50.0 [facility] Comment on above: Order Comment: No: D o not add to previous draw Performed By: #### 0 0071, 18024 #### [facility] [address] [facility] [place] [address], [facility] Hemoglobin (Bld) [Mass/Vol] 12.3 g/dL Low 13.0-17.0 [facility] Comment on above: Order Comment: No: D o not add to previous draw Performed By: #### 0 0071, 90776 #### [facility] [address] [facility] [place] [address], [facility] IMMATURE GRANS 0.8 % Normal 0.0-1.0 [facility] Comment on above: Order Comment: No: D o not add to previous draw Performed By: #### 0 0071, 22356 #### [facility] [address] [facility] [place] [address], [facility] Lymphocytes (Bld) [#/Vol] 1.2 10*3/uL Normal 1.2-4.0 [facility] Comment on above: Order Comment: No: D o not add to previous draw Performed By: #### 0 0071, 52374 #### [facility] [address] [facility] [place] [address], [facility] Lymphocytes/100 WBC (Bld) 16.1 % Low 20.0-45.0 [facility] Comment on above: Order Comment: No: D o not add to previous draw Performed By: #### 0 0071, 04497 #### [facility] [address] [place] [address], [facility] MCH (RBC) [Entitic mass] 29.9 pg Normal 27.0-33.0 [facility] Comment on above: Order Comment: No: D o not add to previous draw Performed By: #### 0 0071, 83875 #### [facility] [address] [place] [address], [facility] MCHC (RBC) [Mass/Vol] 31.5 g/dL Low 32.0-35.0 [facility] Comment on above: Order Comment: No: D o not add to previous draw Performed By: #### 0 0071, 17717 #### [facility] [address] [place] [id number], [facility] MCV (RBC) [Entitic vol] 94.9 fL Normal 82.0-98.0 [facility] Comment on above: Order Comment: No: D o not add to previous draw Performed By: #### 0 0071, 12101 #### [facility] [address] [place] [address], [facility] Monocytes (Bld) [#/Vol] 0.5 10*3/uL Normal 0.1-1.0 [facility] Comment on above: Order Comment: No: D o not add to previous draw Performed By: #### 0 0071, 37759 #### [facility] [address] [facility] [place] [address], [facility] MONOS 6.3 % Normal 5.0-12.0 [facility] Comment on above: Order Comment: No: D o not add to previous draw Performed By: #### 0 0071, 85445 #### [facility] [address] [place] [id number], [facility] Neutrophils/100 WBC (Bld) 72.1 % High 40.0-72.0 [facility] Comment on above: Order Comment: No: D o not add to previous draw Performed By: #### 0 0071, 65355 #### [facility] [address] [place] [address], [facility] Nucleated RBC/100 WBC (Bld) [Ratio] 0 % Normal 0-0 [facility] Comment on above: Order Comment: No: D o not add to previous draw Performed By: #### 0 0071, 50166 #### [facility] [address] [place] [address], [facility] PLAT CNT 168 10*3/uL Normal 150-400 [facility] Comment on above: Order Comment: No: D o not add to previous draw Performed By: #### 0 0071, 56385 #### [facility] [address] [place] [address], [facility] RBC (Bld) [#/Vol] 4.11 10*6/uL Low 4.20-5.70 [facility] Comment on above: Order Comment: No: D o not add to previous draw Performed By: #### 0 0071, 74225 #### [facility] [address] [place] [address], [facility] WBC (Bld) [#/Vol] 7.13 10*3/uL Normal 4.00-10.60 [facility] Comment on above: Order Comment: No: D o not add to previous draw Performed By: #### 0 0071, 22977 #### [address] US ABDOMEN LIMITED 020 US ABDOMEN LIMITED [facility] Department of Radiology [address] [place] [id number] ======== Patient Name: KEL CASTILLO : 1955 Sex: M Age: Race: White Pt. Location: [id number] Patient Status: I Ordered Date: 10/08/2019 9:30:00 [...] collection. Electronically signed: Brandy Wilson. Transcribed by: [id number], User Resident: BRANDY WILSON Electronically Signed by: BRANDY WILSON @ 10/08/2019 10:13 AM I personally read this/these film(s) with this resident Normal [facility] Comment on above: Order Comment: No: D o not add to previous draw BASIC METABOLIC PANELon 09-13 Calcium [Mass/Vol] 8.7 mg/dL Normal 8.6-10.3 [facility] Comment on above: Order Comment: No: D o not add to previous draw Performed By: #### 0 0071, 47265 #### [facility] [address] [place] [address], [facility] Chloride [Moles/Vol] 111 mmol/L High 98-107 [facility] Comment on above: Order Comment: No: D o not add to previous draw Performed By: #### 0 0071, 03227 #### [facility] [address] [place] [address], [place] CO2 [Moles/Vol] 28 mmol/L Normal 21-31 [facility] Comment on above: Order Comment: No: D o not add to previous draw Performed By: #### 0 0071, 95397 #### [facility] [address] [place] [address], [place] Creatinine [Mass/Vol] 1.59 mg/dL High 0.70-1.30 [facility] Comment on above: Order Comment: No: D o not add to previous draw Performed By: #### 0 0071, 65034 #### [facility] [address] [place] [address], [place] GFR/1.73 sq M predicted among blacks MDRD (S/P/Bld) [Vol rate/Area] 53 ml/min/1.73sq m Abnormal >60 [facility] Comment on above: Order Comment: No: D o not add to previous draw Performed By: #### 0 0071, 66395 #### [facility] [address] [place] [address], [place] GFR/1.73 sq M predicted among non-blacks MDRD (S/P/Bld) [Vol rate/Area] 44 ml/min/1.73sq m Abnormal >60 [facility] Comment on above: Order Comment: No: D o not add to previous draw Performed By: #### 0 0071, 83494 #### [facility] [address] [place] [address], [place] Glucose [Mass/Vol] 99 mg/dL Normal 70-100 [facility] Comment on above: Order Comment: No: D o not add to previous draw Performed By: #### 0 0071, 35798 #### [facility] [address] [place] [address], [place] Potassium [Moles/Vol] 4.2 mmol/L Normal 3.5-5.1 [facility] Comment on above: Order Comment: No: D o not add to previous draw Performed By: #### 0 0071, 58874 #### [facility] [address] Sodium [Moles/Vol] 142 mmol/L Normal 136-145 [facility] Comment on above: Order Comment: No: D o not add to previous draw Performed By: #### 0 0071, 68136 #### [facility] [address] [place] [id number] Urea nitrogen [Mass/Vol] 16 mg/dL Normal 7-25 [facility] Comment on above: Order Comment: No: D o not add to previous draw Performed By: #### 0 0071, 80220 #### [facility] [address] Cardiovascular Lab Reporton 10-07-2019 Cardiovascular Lab Report [facility] #: [id number] Department of Physician: Shaji Juarez M.D. Division of Service Date: 10/07/2019 Cardiology Birthdate: 1955 Adult Cardiovascular Room #: [id number] [facility] [address] [place] [address] Cardiovascular Laboratory Report FINAL IMPRESSIONS: 1. Severe 3-vessel [place] coronary artery disease. 2. A 2/3 bypass [...] on the anatomic and fluoroscopic landmarks. A 6-Lao 11 cm sheath was inserted. Limited femoral [...] Tolliver M.D. Date Trans: 10/07/2019 02:55 P/mmo [id number] cc: Priyank Hendrickson M.D. [address] [place] [address] Nayana Bledsoe D. [address] [place] [address] Normal [facility] MAGNESIUM BLOODon 10-07-2019 Magnesium [Mass/Vol] 2.1 mg/dL Normal 1.9-2.7 [facility] Comment on above: Order Comment: No: D o not add to previous draw Performed By: #### 0 0071, 08295 #### [facility] [address] [place] [address], [facility] BASIC METABOLIC PANELon 09-13 Calcium [Mass/Vol] 8.7 mg/dL Normal 8.6-10.3 [facility] Comment on above: Order Comment: No: D o not add to previous draw Performed By: #### 0 0071, 19790 #### [facility] [address] [place] [address], [place] Chloride [Moles/Vol] 110 mmol/L High 98-107 [facility] Comment on above: Order Comment: No: D o not add to previous draw Performed By: #### 0 0071, 90016 #### [facility] [address] [place] [address], [place] CO2 [Moles/Vol] 26 mmol/L Normal 21-31 [facility] Comment on above: Order Comment: No: D o not add to previous draw Performed By: #### 0 0071, 60654 #### [facility] [address] [place] [address], [place] Creatinine [Mass/Vol] 1.92 mg/dL High 0.70-1.30 [facility] Comment on above: Order Comment: No: D o not add to previous draw Performed By: #### 0 0071, 57013 #### [facility] [address] [place] [address], [place] GFR/1.73 sq M predicted among blacks MDRD (S/P/Bld) [Vol rate/Area] 43 ml/min/1.73sq m Abnormal >60 [facility] Comment on above: Order Comment: No: D o not add to previous draw Performed By: #### 0 0071, 88291 #### [facility] [address] [place] [address], [place] GFR/1.73 sq M predicted among non-blacks MDRD (S/P/Bld) [Vol rate/Area] 35 ml/min/1.73sq m Abnormal >60 [facility] Comment on above: Order Comment: No: D o not add to previous draw Performed By: #### 0 0071, 61194 #### [facility] [address] [place] [address], [place] Glucose [Mass/Vol] 96 mg/dL Normal 70-100 [facility] Comment on above: Order Comment: No: D o not add to previous draw Performed By: #### 0 0071, 42445 #### [facility] [address] [place] [address], [place] Potassium [Moles/Vol] 4.4 mmol/L Normal 3.5-5.1 [facility] Comment on above: Order Comment: No: D o not add to previous draw Performed By: #### 0 0071, 26539 #### [facility] [address] [place] [address], [place] Sodium [Moles/Vol] 140 mmol/L Normal 136-145 [facility] Comment on above: Order Comment: No: D o not add to previous draw Performed By: #### 0 0071, 04762 #### [facility] [address] [place] [address], [place] Urea nitrogen [Mass/Vol] 25 mg/dL Normal 7-25 [facility] Comment on above: Order Comment: No: D o not add to previous draw Performed By: #### 0 0071, 78632 #### [facility] [address] [place] [address], [place] Calcium [Mass/Vol] 8.8 mg/dL Normal 8.6-10.3 [facility] Comment on above: Order Comment: No: D o not add to previous draw Performed By: #### 0 0071 #### [facility] [address] [place] [address], [place] Chloride [Moles/Vol] 111 mmol/L High 98-107 [facility] Comment on above: Order Comment: No: D o not add to previous draw Performed By: #### 0 0071 #### [facility] [address] [place] [address], [place] CO2 [Moles/Vol] 25 mmol/L Normal 21-31 [facility] Comment on above: Order Comment: No: D o not add to previous draw Performed By: #### 0 0071 #### [facility] [address] [place] [address], [facility] Creatinine [Mass/Vol] 1.94 mg/dL High 0.70-1.30 [facility] Comment on above: Order Comment: No: D o not add to previous draw Performed By: #### 0 0071 #### [facility] [address] [place] [address], [facility] GFR/1.73 sq M predicted among blacks MDRD (S/P/Bld) [Vol rate/Area] 42 ml/min/1.73sq m Abnormal >60 [facility] Comment on above: Order Comment: No: D o not add to previous draw Performed By: #### 0 0071 #### [facility] [address] [place] [address], [facility] GFR/1.73 sq M predicted among non-blacks MDRD (S/P/Bld) [Vol rate/Area] 35 ml/min/1.73sq m Abnormal >60 [facility] Comment on above: Order Comment: No: D o not add to previous draw Performed By: #### 0 0071 #### [facility] [address] [place] [address], [place] Glucose [Mass/Vol] 102 mg/dL High 70-100 [facility] Comment on above: Order Comment: No: D o not add to previous draw Performed By: #### 0 0071 #### [facility] [address] [place] [address], [place] Potassium [Moles/Vol] 4.5 mmol/L Normal 3.5-5.1 [facility] Comment on above: Order Comment: No: D o not add to previous draw Performed By: #### 0 0071 #### [facility] [address] Sodium [Moles/Vol] 140 mmol/L Normal 136-145 [facility] Comment on above: Order Comment: No: D o not add to previous draw Performed By: #### 0 0071 #### [facility] [address] [facility] [place] [address], [facility] Urea nitrogen [Mass/Vol] 27 mg/dL High 7-25 [facility] Comment on above: Order Comment: No: D o not add to previous draw Performed By: #### 0 0071 #### [facility] [address] [facility] [place] [address], [facility] CBC W/DIFFon 10-06-2019 ABS BASOPHILS 0.1 10*3/uL Normal 0.0-0.2 [facility] Comment on above: Order Comment: No: D o not add to previous draw Performed By: #### 5 3 #### [facility] [address] [facility]. [address] ABS IMM GRANS 0.1 10*3/uL Normal 0.0-0.2 [facility] Comment on above: Order Comment: No: D o not add to previous draw Performed By: #### 5 3 #### [facility] [address] [facility] [place] [address], [facility] ABS NEUTROPHILS 4.2 10*3/uL Normal 1.6-7.6 [facility] Comment on above: Order Comment: No: D o not add to previous draw Performed By: #### 5 3 #### [facility] [address] [facility] [place] [address], [facility] Basophils/100 WBC (Bld) 0.9 % Normal 0.0-1.0 [facility] Comment on above: Order Comment: No: D o not add to previous draw Performed By: #### 5 102 #### [facility] [address] [facility] [place] [address], [facility] Eosinophils (Bld) [#/Vol] 0.3 10*3/uL Normal 0.0-0.5 [facility] Comment on above: Order Comment: No: D o not add to previous draw Performed By: #### 5 0103 #### [facility] [address] [place] [address], [facility] Eosinophils/100 WBC (Bld) 4.8 % Normal 0.0-6.0 [facility] Comment on above: Order Comment: No: D o not add to previous draw Performed By: #### 5 0103 #### [facility] [address] [place] [address], [facility] Erythrocyte distribution width (RBC) [Ratio] 14.3 % Normal 11.5-15.0 [facility] Comment on above: Order Comment: No: D o not add to previous draw Performed By: #### 5 0103 #### [facility] [address] [place] [address], [facility] Hematocrit (Bld) [Volume fraction] 37.3 % Low 39.0-50.0 [facility] Comment on above: Order Comment: No: D o not add to previous draw Performed By: #### 5 0103 #### [facility] [address] [place] [address], [facility] Hemoglobin (Bld) [Mass/Vol] 11.7 g/dL Low 13.0-17.0 [facility] Comment on above: Order Comment: No: D o not add to previous draw Performed By: #### 5 0103 #### [facility] [address] [place] [address], [facility] IMMATURE GRANS 1.3 % High 0.0-1.0 [facility] Comment on above: Order Comment: No: D o not add to previous draw Performed By: #### 5 0103 #### [facility] [address] [place] [address], [facility] Lymphocytes (Bld) [#/Vol] 1.5 10*3/uL Normal 1.2-4.0 [facility] Comment on above: Order Comment: No: D o not add to previous draw Performed By: #### 5 0103 #### [facility] [address] [facility] [place] [address], [facility] Lymphocytes/100 WBC (Bld) 21.8 % Normal 20.0-45.0 [facility] Comment on above: Order Comment: No: D o not add to previous draw Performed By: #### 5 0103 #### [facility] [address] [facility] [place] [address], [facility] MCH (RBC) [Entitic mass] 29.5 pg Normal 27.0-33.0 [facility] Comment on above: Order Comment: No: D o not add to previous draw Performed By: #### 5 3 #### [facility] [address] [place] [address], [facility] MCHC (RBC) [Mass/Vol] 31.4 g/dL Low 32.0-35.0 [facility] Comment on above: Order Comment: No: D o not add to previous draw Performed By: #### 5 3 #### [facility] [address] [facility] [place] [address], [facility] MCV (RBC) [Entitic vol] 94.0 fL Normal 82.0-98.0 [facility] Comment on above: Order Comment: No: D o not add to previous draw Performed By: #### 5 0103 #### [facility] [address] [facility] [place] [address], [facility] Monocytes (Bld) [#/Vol] 0.6 10*3/uL Normal 0.1-1.0 [facility] Comment on above: Order Comment: No: D o not add to previous draw Performed By: #### 5 3 #### [facility] [address] [place] [address], [facility] MONOS 8.2 % Normal 5.0-12.0 [facility] Comment on above: Order Comment: No: D o not add to previous draw Performed By: #### 5 0103 #### [facility] [address] [place] [id number], [facility] Neutrophils/100 WBC (Bld) 63.0 % Normal 40.0-72.0 [facility] Comment on above: Order Comment: No: D o not add to previous draw Performed By: #### 5 0103 #### [facility] [address] [place] [address], [facility] Nucleated RBC/100 WBC (Bld) [Ratio] 0 % Normal 0-0 [facility] Comment on above: Order Comment: No: D o not add to previous draw Performed By: #### 5 0103 #### [facility] [address] [facility] [place] [address], [facility] PLAT CNT 162 10*3/uL Normal 150-400 [facility] Comment on above: Order Comment: No: D o not add to previous draw Performed By: #### 5 0103 #### [facility] [address] [facility] [place] [address], [facility] RBC (Bld) [#/Vol] 3.97 10*6/uL Low 4.20-5.70 [facility] Comment on above: Order Comment: No: D o not add to previous draw Performed By: #### 5 0103 #### [facility] [address] [facility] [address], [place] WBC (Bld) [#/Vol] 6.69 10*3/uL Normal 4.00-10.60 [facility] Comment on above: Order Comment: No: D o not add to previous draw Performed By: #### 5 0103 #### [facility] [address] [place] [address], [facility] BASIC METABOLIC PANELon 02- Calcium [Mass/Vol] 9.7 mg/dL Normal 8.6-10.3 [facility] Comment on above: Order Comment: No: D o not add to previous draw Performed By: #### 0 0071, 16218 #### [facility] [address] [place] [address], [place] Chloride [Moles/Vol] 105 mmol/L Normal 98-107 [facility] Comment on above: Order Comment: No: D o not add to previous draw Performed By: #### 0 0071, 33109 #### [facility] [address] [place] [address], [place] CO2 [Moles/Vol] 25 mmol/L Normal 21-31 [facility] Comment on above: Order Comment: No: D o not add to previous draw Performed By: #### 0 0071, 09147 #### [facility] [address] [place] [address], [place] Creatinine [Mass/Vol] 2.13 mg/dL High 0.70-1.30 [facility] Comment on above: Order Comment: No: D o not add to previous draw Performed By: #### 0 0071, 00828 #### [facility] [address] [place] [address], [place] GFR/1.73 sq M predicted among blacks MDRD (S/P/Bld) [Vol rate/Area] 38 ml/min/1.73sq m Abnormal >60 [facility] Comment on above: Order Comment: No: D o not add to previous draw Performed By: #### 0 0071, 93033 #### [facility] [address] [place] [address], [place] GFR/1.73 sq M predicted among non-blacks MDRD (S/P/Bld) [Vol rate/Area] 31 ml/min/1.73sq m Abnormal >60 [facility] Comment on above: Order Comment: No: D o not add to previous draw Performed By: #### 0 0071, 19144 #### [facility] [address] [place] [address], [facility] Glucose [Mass/Vol] 114 mg/dL High 70-100 [facility] Comment on above: Order Comment: No: D o not add to previous draw Performed By: #### 0 0071, 75419 #### [facility] [address] [place] [id number], [facility] Potassium [Moles/Vol] 4.7 mmol/L Normal 3.5-5.1 [facility] Comment on above: Order Comment: No: D o not add to previous draw Performed By: #### 0 0071, 18827 #### [facility] [address] [facility] [place] [address], [facility] Sodium [Moles/Vol] 140 mmol/L Normal 136-145 [facility] Comment on above: Order Comment: No: D o not add to previous draw Performed By: #### 0 0071, 36262 #### [facility] [address] [facility] [place] [address], [facility] Urea nitrogen [Mass/Vol] 32 mg/dL High 7-25 [facility] Comment on above: Order Comment: No: D o not add to previous draw Performed By: #### 0 0071, 33397 #### [facility] [address] [facility] [place] [address], [facility] CBC W/DIFFon 10-05-2019 ABS BASOPHILS 0.1 10*3/uL Normal 0.0-0.2 [facility] Comment on above: Performed By: #### 5 0103 #### [facility] [address] [facility] [place] [address], [facility] ABS IMM GRANS 0.1 10*3/uL Normal 0.0-0.2 [facility] Comment on above: Performed By: #### [id number] #### [facility] [address] [place] [address], [facility] ABS NEUTROPHILS 6.2 10*3/uL Normal 1.6-7.6 [facility] Comment on above: Performed By: #### [id number] #### [facility] [address] [place] [address], [facility] Basophils/100 WBC (Bld) 0.7 % Normal 0.0-1.0 [facility] Comment on above: Performed By: #### 5 0103 #### [facility] [address] [place] [address], [facility] Eosinophils (Bld) [#/Vol] 0.3 10*3/uL Normal 0.0-0.5 [facility] Comment on above: Performed By: #### 5 0103 #### [facility] [address] [place] [address], [facility] Eosinophils/100 WBC (Bld) 4.0 % Normal 0.0-6.0 [facility] Comment on above: Performed By: #### 5 0103 #### [facility] [address] [place] [address], [facility] Erythrocyte distribution width (RBC) [Ratio] 14.4 % Normal 11.5-15.0 [facility] Comment on above: Performed By: #### 5 0103 #### [facility] [address] [address], [facility] Hematocrit (Bld) [Volume fraction] 39.3 % Normal 39.0-50.0 [facility] Comment on above: Performed By: #### 5 0103 #### [facility] [address] [address], [facility] Hemoglobin (Bld) [Mass/Vol] 12.7 g/dL Low 13.0-17.0 [facility] Comment on above: Performed By: #### 5 0103 #### [facility] [address] [place] [address], [facility] IMMATURE GRANS 0.8 % Normal 0.0-1.0 [facility] Comment on above: Performed By: #### 5 0103 #### [facility] [address] [place] [address], [facility] Lymphocytes (Bld) [#/Vol] 1.4 10*3/uL Normal 1.2-4.0 [facility] Comment on above: Performed By: #### 5 0103 #### [facility] [address] [place] [address], [facility] Lymphocytes/100 WBC (Bld) 16.6 % Low 20.0-45.0 [facility] Comment on above: Performed By: #### 5 3 #### [facility] [address] [facility] [place] [address], [facility] MCH (RBC) [Entitic mass] 30.3 pg Normal 27.0-33.0 [facility] Comment on above: Performed By: #### 5 102 #### [facility] [address] MCHC (RBC) [Mass/Vol] 32.3 g/dL Normal 32.0-35.0 [facility] Comment on above: Performed By: #### 5 3 #### [facility] [address] [place] [address], [facility] MCV (RBC) [Entitic vol] 93.8 fL Normal 82.0-98.0 [facility] Comment on above: Performed By: #### 5 3 #### [facility] [address] [place] [address], [facility] Monocytes (Bld) [#/Vol] 0.4 10*3/uL Normal 0.1-1.0 [facility] Comment on above: Performed By: #### 5 102 #### [facility] [address] [place] [address], [facility] MONOS 4.9 % Low 5.0-12.0 [facility] Comment on above: Performed By: #### 5 0103 #### [facility] [address] [place] [address], [facility] Neutrophils/100 WBC (Bld) 73.0 % High 40.0-72.0 [facility] Comment on above: Performed By: #### 5 0103 #### [facility] [address] [place] [address], [facility] Nucleated RBC/100 WBC (Bld) [Ratio] 0 % Normal 0-0 [facility] Comment on above: Performed By: #### 5 0103 #### [facility] [address] [facility] [place] [address], [facility] PLAT CNT 205 10*3/uL Normal 150-400 [facility] Comment on above: Performed By: #### 5 0103 #### [facility] [address] [facility] [place] [address], [facility] RBC (Bld) [#/Vol] 4.19 10*6/uL Low 4.20-5.70 [facility] Comment on above: Performed By: #### 5 0103 #### [facility] [address] [facility] [place] [address], [facility] WBC (Bld) [#/Vol] 8.53 10*3/uL Normal 4.00-10.60 [facility] Comment on above: Performed By: #### 5 0103 #### [facility] [address] [facility] [place] [address], [facility] CREATININE URINE RANDOMon Creatinine [Mass/Vol] 62.0 mg/dL Normal [facility] Comment on above: Order Comment: No: D o not add to previous draw Result Comment: Ther e are no established reference values for random urine specimens Performed By: #### 2 5706, 24069, 57655 #### [facility] [address] [place] [id number], [facility] LIVER BATTERYon 10-05-2019 Albumin [Mass/Vol] 4.6 g/dL Normal 3.5-5.7 [facility] Comment on above: Order Comment: Yes: Add to Previous draw if able Performed By: #### 0 0071, [id number] #### [facility] [address] [place] [address], [place] ALKALINE PHOSPH 56 IU/L Normal 34-104 [facility] Comment on above: Order Comment: Yes: Add to Previous draw if able Performed By: #### 0 0071, 42141 #### [facility] [address] [place] [address], [place] ALT [Catalytic activity/Vol] 26 U/L Normal 7-52 [facility] Comment on above: Order Comment: Yes: Add to Previous draw if able Performed By: #### 0 0071, [id number] #### [facility] [address] [place] [address], [place] AST [Catalytic activity/Vol] 25 U/L Normal 13-39 [facility] Comment on above: Order Comment: Yes: Add to Previous draw if able Performed By: #### 0 0071, [id number] #### [facility] [address] [place] [address], [place] Bilirubin [Mass/Vol] 0.5 mg/dL Normal 0.3-1.0 [facility] Comment on above: Order Comment: Yes: Add to Previous draw if able Performed By: #### 0 0071, 84816 #### [facility] [address] [place] [address], [place] Bilirubin.direct [Mass/Vol] 0.1 mg/dL Normal 0.0-0.2 [facility] Comment on above: Order Comment: Yes: Add to Previous draw if able Performed By: #### 0 0071, [id number] #### [facility] [address] [place] [address], [place] Protein [Mass/Vol] 7.6 g/dL Normal 6.0-8.3 [facility] Comment on above: Order Comment: Yes: Add to Previous draw if able Performed By: #### 0 0071, 79312 #### [facility] [address] [place] [address], [facility] SODIUM URINE RANDOMon 2019 Sodium (U) [Moles/Vol] 111 mmol/L Normal [facility] Comment on above: Order Comment: No: D o not add to previous draw Result Comment: Ther e are no established reference values for random urine specimens Performed By: #### 2 5706, 27225, 14540 #### [facility] [address] [place] [address], [place] UA,MICROSCOPIC REQUIREDon Appearance (U) CLEAR Normal CLEAR [facility] Comment on above: Order Comment: No: D o not add to previous draw Performed By: #### 9 0150 #### [facility] [address] [place] [address], [facility] Bilirubin [Mass/Vol] Negative Normal NEGATIVE [facility] Comment on above: Order Comment: No: D o not add to previous draw Performed By: #### 9 0150 #### [facility] [address] [place] [address], [facility] BLOOD Negative Normal NEGATIVE [facility] Comment on above: Order Comment: No: D o not add to previous draw Performed By: #### 9 0150 #### [facility] [address] [place] [address], [facility] Color (U) YELLOW Normal YELLOW [facility] Comment on above: Order Comment: No: D o not add to previous draw Performed By: #### 9 0150 #### [facility] [address] [place] [address], [place] EPIS OCC Normal FEW,OCC,NONE SEEN [facility] Comment on above: Order Comment: No: D o not add to previous draw Performed By: #### 9 0150 #### [facility] [address] [place] [address], [place] Glucose [Mass/Vol] Negative Normal NEGATIVE [facility] Comment on above: Order Comment: No: D o not add to previous draw Performed By: #### 9 0150 #### [facility] [address] [place] [address], [place] HYALINE CASTS 1 /LPF Abnormal NONE SEEN [facility] Comment on above: Order Comment: No: D o not add to previous draw Performed By: #### 9 0150 #### [facility] [address] [place] [address], [place] KETONE Negative Normal NEGATIVE [facility] Comment on above: Order Comment: No: D o not add to previous draw Performed By: #### 9 0150 #### [facility] [address] [place] [address], [place] LEUK BURAK Negative Normal NEGATIVE [facility] Comment on above: Order Comment: No: D o not add to previous draw Performed By: #### 9 0150 #### [facility] [address] [place] [address], [place] Nitrite Ql (U) Negative Normal NEGATIVE [facility] Comment on above: Order Comment: No: D o not add to previous draw Performed By: #### 9 0150 #### [facility] [address] [place] [address], [place] pH (Bld) 6.0 Normal 5.0-8.0 [facility] Comment on above: Order Comment: No: D o not add to previous draw Performed By: #### 9 0150 #### [facility] [address] [place] [address], [place] Protein [Mass/Vol] Negative Normal NEGATIVE [facility] Comment on above: Order Comment: No: D o not add to previous draw Performed By: #### 9 0150 #### [facility] [address] [place] [address], [place] RBC (Bld) [#/Vol] 0-2 Abnormal NONE SEEN [facility] Comment on above: Order Comment: No: D o not add to previous draw Performed By: #### 9 0150 #### [facility] [address] [facility] [place] [address], [facility] SPEC GRAV 1.012 Low 1.015-1.020 [facility] Comment on above: Order Comment: No: D o not add to previous draw Performed By: #### 9 0150 #### [facility] [address] [facility] [place] [address], [facility] WBC UA 0-2 Abnormal NONE SEEN [facility] Comment on above: Order Comment: No: D o not add to previous draw Performed By: #### 9 0150 #### [facility] [address] [facility] [place] [address], [facility] UREA NITROGEN URon 0 Urea nitrogen [Mass/Vol] 566 mg/dL Normal [facility] Comment on above: Order Comment: No: D o not add to previous draw Result Comment: Ther e are no established reference values for random urine specimens Performed By: #### 2 5706, 44887, 91387 #### [address] [place] [address], [facility] US RENALon 10-05-2019 RENAL [facility] Department of Radiology [address] [place] [id number] ======== Patient Name: KEL CASTILLO : 1955 Sex: M Age: Race: White Pt. Location: [id number] Patient Status: I Ordered Date: 10/05/2019 10:45:00 [...] hydronephrosis. Electronically signed: Robinson Castellanos. Transcribed by: [email or web address], User Resident: Electronically Signed by: ROBINSON CASTELLANOS @ 10/05/2019 03:41 PM Normal [facility] Comment on above: Order Comment: Gardiner nephrosis Vital Signs Date Time Vital Sign Value Performing Clinician Facility 04-01-2025 14: Body height 167.6 cm Bill Gant MD Work Phone: [facility] 04-01-2025 14:14040 Body mass index (BMI) [Ratio] 26.63 kg/m2 Bill Gant MD Work Phone: [facility] 04-01-2025 14:040 Body weight 74.84 kg Bill Gant MD Work Phone: [facility] 04-01-2025 14:14040 Diastolic blood pressure 58 mm[Hg] Bill Gant MD Work Phone: [facility] 04-01-2025 14:14040 Heart rate 59 /min Bill Gant MD Work Phone: [facility] 04-01-2025 14:14-0400 SaO2% (BldA) [Mass fraction] 99 % Bill Gant MD Work Phone: [facility] 04-01-2025 14:14-0400 Systolic blood pressure 123 mm[Hg] Bill Gant MD Work Phone: [facility] 03-10-2025 09:53-0400 Body height 165.1 cm Darrick Verhoff PA-C Work Phone: [facility] 03-10-2025 09:53-0400 Body mass index (BMI) [Ratio] 27.12 kg/m2 Darrick Verhoff PA-C Work Phone: [facility] 03-10-2025 09:53-0400 Body weight 73.94 kg Darrick Verhoff PA-C Work Phone: [facility] 03-10-2025 09:53-0400 Diastolic blood pressure 54 mm[Hg] Darrick Verhoff PA-C Work Phone: [facility] 03-10-2025 09:53-0400 Heart rate 51 /min Darrick Verhoff PA-C Work Phone: [facility] 03-10-2025 09:53-0400 Respiratory rate 18 /min Darrick Verhoff PA-C Work Phone: [facility] 03-10-2025 09:53-0400 SaO2% (BldA) [Mass fraction] 100 % Darrick Verhoff PA-C Work Phone: [facility] 03-10-2025 09:53-0400 Systolic blood pressure 123 mm[Hg] Darrick Verhoff PA-C Work Phone: [facility] 03-01-2025 13:45-0400 Body mass index (BMI) [Ratio] 25.33 kg/m2 Susan Watson NP Work Phone: [facility] 03-01-2025 13:45-0400 Body temperature 97.3 [degF] Susan Watson [employer] Work Phone: [facility] 03-01-2025 13:45-0400 Body weight 75.57 kg Susan Watson [employer] Work Phone: [facility] 03-01-2025 13:45-0400 Diastolic blood pressure 64 mm[Hg] Susan Watson [employer] Work Phone: [facility] 03-01-2025 13:45-0400 Heart rate 54 /min Susan Watson [employer] Work Phone: [facility] 03-01-2025 13:45-0400 Respiratory rate 18 /min Susan Watson [employer] Work Phone: [facility] 03-01-2025 13:45-0400 SaO2% (BldA) [Mass fraction] 97 % Susan Watson [employer] Work Phone: [facility] 03-01-2025 13:45-0400 Systolic blood pressure 126 mm[Hg] Susan Watson [employer] Work Phone: [facility] 01-27-2025 10:22-0400 Body height 167.6 cm Darrick Verhoff PA-C Work Phone: [facility] 01-27-2025 10:22-0400 Body mass index (BMI) [Ratio] 26.79 kg/m2 Darrick Verhoff PA-C Work Phone: [facility] 01-27-2025 10:22-0400 Body weight 75.3 kg Darrick Verhoff PA-C Work Phone: [facility] 01-27-2025 10:22-0400 Diastolic blood pressure 62 mm[Hg] Darrick Verhoff PA-C Work Phone: [facility] 01-27-2025 10:22-0400 Heart rate 57 /min Darrick Verhoff PA-C Work Phone: [facility] 01-27-2025 10:22-0400 Respiratory rate 20 /min Darrick Garciahoff PA-C Work Phone: [facility] 01-27-2025 10:22-0400 Systolic blood pressure 129 mm[Hg] Darrick Garciahoff PA-C Work Phone: [facility] 01-19-2025 16:26-0400 Body height 165.1 cm [facility] 01-19-2025 16:26-0400 Body mass index (BMI) [Ratio] 27.8 kg/m2 [facility] 01-19-2025 16:26-0400 Body weight 75.74 kg [facility] 01-19-2025 16:26-0400 Diastolic blood pressure 53 mm[Hg] [facility] 01-19-2025 16:26-0400 Heart rate 64 /min [facility] 01-19-2025 16:26-0400 Respiratory rate 16 /min [facility] 01-19-2025 16:26-0400 SaO2% (BldA) [Mass fraction] 96 % [facility] 01-19-2025 16:26-0400 Systolic blood pressure 125 mm[Hg] [facility] 01-19-2025 13:06-0400 Body mass index (BMI) [Ratio] 25.21 kg/m2 Susan Watson [employer] Work Phone: [facility] 01-19-2025 13:06-0400 Body temperature 98.49 [degF] Susan Shirley [employer] Work Phone: [facility] 01-19-2025 13:06-0400 Body weight 75.21 kg Susan Shirley [employer] Work Phone: [facility] 01-19-2025 13:06-0400 Diastolic blood pressure 70 mm[Hg] Susan Shirley [employer] Work Phone: [facility] 01-19-2025 13:06-0400 Heart rate 66 /min Susan Aichholz [employer] Work Phone: [facility] 01-19-2025 13:06-0400 Respiratory rate 18 /min Susan Aicrandolphholz [employer] Work Phone: [facility] 01-19-2025 13:06-0400 SaO2% (BldA) [Mass fraction] 96 % Susan Aichholz [employer] Work Phone: [facility] 01-19-2025 13:06-0400 Systolic blood pressure 130 mm[Hg] Susan Aichholz [employer] Work Phone: [facility] 11-19-2024 13:03-0400 Body mass index (BMI) [Ratio] 25.21 kg/m2 Susan Aichholz [employer] Work Phone: [facility] 11-19-2024 13:03-0400 Body temperature 98.71 [degF] Susan Aichholz [employer] Work Phone: [facility] 11-19-2024 13:03-0400 Body weight 75.21 kg Susan Aichholz [employer] Work Phone: [facility] 11-19-2024 13:03-0400 Diastolic blood pressure 70 mm[Hg] Susan Aichholz [employer] Work Phone: [facility] 11-19-2024 13:03-0400 Heart rate 67 /min Susan Aichholz [employer] Work Phone: [facility] 11-19-2024 13:03-0400 Respiratory rate 18 /min Susan Aichholz [employer] Work Phone: [facility] 11-19-2024 13:03-0400 SaO2% (BldA) [Mass fraction] 96 % Susan Aichholz [employer] Work Phone: [facility] 11-19-2024 13:03-0400 Systolic blood pressure 130 mm[Hg] Susan Aichholz [employer] Work Phone: [facility] 10-27-2024 15:59-0400 Body height 165.1 cm [facility] 10-27-2024 15:59-0400 Body mass index (BMI) [Ratio] 27.8 kg/m2 [facility] 10-27-2024 15:59-0400 Body weight 75.8 kg [facility] 10-27-2024 15:59-0400 Diastolic blood pressure 73 mm[Hg] [facility] 10-27-2024 15:59-0400 Heart rate 56 /min [facility] 10-27-2024 15:59-0400 Respiratory rate 16 /min [facility] 10-27-2024 15:59-0400 SaO2% (BldA) [Mass fraction] 95 % [facility] 10-27-2024 15:59-0400 Systolic blood pressure 145 mm[Hg] [facility] 10-12-2024 11:22-0500 Body height 165.1 cm Ebonysotero Kaufman Sofia DO Work Phone: [facility] 10-12-2024 11:22-0500 Body mass index (BMI) [Ratio] 28.29 kg/m2 Ebony Mandeep Sofia DO Work Phone: [facility] 10-12-2024 11:22-0500 Body weight 77.1 kg Ebony Mandeep Sofia DO Work Phone: [facility] 10-12-2024 11:22-0500 Diastolic blood pressure 61 mm[Hg] Ebony Mandeep Sofia DO Work Phone: [facility] 10-12-2024 11:22-0500 Heart rate 58 /min Ebony Mandeep Sofia DO Work Phone: [facility] 10-12-2024 11:22-0500 Systolic blood pressure 136 mm[Hg] Ebony Mandeep Sofia DO Work Phone: [facility] 10-08-2024 13:45-0500 Body mass index (BMI) [Ratio] 25.82 kg/m2 Susan Watson NP Work Phone: [facility] 02-27-2025 13:45-0500 Body temperature 98.1 [degF] Susan Simmonsholz [employer] Work Phone: [facility] 10-08-2024 13:45-0500 Body weight 77.02 kg Susan Manzoz [employer] Work Phone: [facility] 10-08-2024 13:45-0500 Diastolic blood pressure 72 mm[Hg] Susan Irisholz [employer] Work Phone: [facility] 10-08-2024 13:45-0500 Heart rate 51 /min Susan Irisholz [employer] Work Phone: [facility] 10-08-2024 13:45-0500 Respiratory rate 18 /min Susan Anaisz [employer] Work Phone: [facility] 10-08-2024 13:45-0500 SaO2% (BldA) [Mass fraction] 97 % Susan Manzoz [employer] Work Phone: [facility] 10-08-2024 13:45-0500 Systolic blood pressure 130 mm[Hg] Susan Simmonsholz [employer] Work Phone: [facility] 06-17-2024 13:13-0500 Body height 172.7 cm Jayy Padillapatrick [employer] Work Phone: [facility] 06-17-2024 13:13-0500 Body mass index (BMI) [Ratio] 27.55 kg/m2 Jayy Coronado [employer] Work Phone: [facility] 06-17-2024 13:13-0500 Body temperature 96.6 [degF] Jayy Coronado [employer] Work Phone: [facility] 06-17-2024 13:13-0500 Body weight 82.19 kg Jayy Coronado [employer] Work Phone: [facility] 06-17-2024 13:13-0500 Diastolic blood pressure 78 mm[Hg] Jayy Coronado [employer] Work Phone: [facility] 06-17-2024 13:13-0500 Heart rate 57 /min Jayy Padillapatrick [employer] Work Phone: [facility] 06-17-2024 13:13-0500 Respiratory rate 16 /min Jayy Padillapatrick [employer] Work Phone: [facility] 06-17-2024 13:13-0500 SaO2% (BldA) [Mass fraction] 94 % Jayy Padillapatrick [employer]OR Work Phone: [facility] 06-17-2024 13:13-0500 Systolic blood pressure 122 mm[Hg] Jayy Padillapatrick [employer]OR Work Phone: [facility] 05-04-2024 09:36-0400 Body height 167.6 cm Ebonysotero Kaufman Sofia DO Work Phone: [facility] 05-04-2024 09:36-0400 Body mass index (BMI) [Ratio] 28.64 kg/m2 Ebony Mandeep Sofia DO Work Phone: [facility] 05-04-2024 09:36-0400 Body weight 80.5 kg Ebony Mandeep Sofia DO Work Phone: [facility] 05-04-2024 09:36-0400 Diastolic blood pressure 63 mm[Hg] Ebony Mandeep Sofia DO Work Phone: [facility] 05-04-2024 09:36-0400 Heart rate 57 /min Ebony Mandeep Sofia DO Work Phone: [facility] 05-04-2024 09:36-0400 Systolic blood pressure 138 mm[Hg] Ebony Mandeep Sofia DO Work Phone: [facility] 03-31-2024 13:00-0400 Body height 167.64 cm [facility] 03-31-2024 13:00-0400 Body mass index (BMI) [Ratio] 29.4 kg/m2 [facility] 03-31-2024 13:00-0400 Body temperature 97 [degF] [facility] 03-31-2024 13:00-0400 Body weight 82.72 kg [facility] 03-31-2024 13:00-0400 Diastolic blood pressure 63 mm[Hg] [facility] 03-31-2024 13:00-0400 Heart rate 58 /min [facility] 03-31-2024 13:00-0400 Respiratory rate 18 /min [facility] 03-31-2024 13:00-0400 SaO2% (BldA) [Mass fraction] 97 % [facility] 03-31-2024 13:00-0400 Systolic blood pressure 143 mm[Hg] [facility] 09-19-2023 13:53-0500 Body height 172.7 cm Shaikh Cornelio LEMON Work Phone: [facility] 09-19-2023 13:53-0500 Body mass index (BMI) [Ratio] 28.43 kg/m2 Shaikh Cornelio LEMON Work Phone: [facility] 09-19-2023 13:53-0500 Body temperature 97.5 [degF] Shaikh Cornelio LEMON Work Phone: [facility] 09-19-2023 13:53-0500 Body weight 84.82 kg Shaikh Cornelio LEMON Work Phone: [facility] 09-19-2023 13:53-0500 Diastolic blood pressure 60 mm[Hg] Shaikh Cornelio LEMON Work Phone: [facility] 09-19-2023 13:53-0500 Heart rate 59 /min Shaikh Cornelio LEMON Work Phone: [facility] 09-19-2023 13:53-0500 SaO2% (BldA) [Mass fraction] 95 % Shaikh Cornelio LEMON Work Phone: [facility] 09-19-2023 13:53-0500 Systolic blood pressure 118 mm[Hg] Shaikh Cornelio LEMON Work Phone: [facility] 01-25-2023 10:00-0400 Body height 167.64 cm Lisseth Toscano Other [employer] Other 01-25-2023 10:00-0400 Body mass index (BMI) [Ratio] 31.57 kg/m2 Lisseth Harveys Other [employer] Other 01-25-2023 10:00-0400 Body temperature 96.2 [degF] Lisseth Toscano Other [employer] Other 01-25-2023 10:00-0400 Body weight 88.72 kg Lisseth Harveys Other [employer] Other 01-25-2023 10:00-0400 Diastolic blood pressure 76 mm[Hg] Lisseth Toscano Other [employer] Other 01-25-2023 10:00-0400 Respiratory rate 20 /min Lisseth Toscano Other [employer] Other 01-25-2023 10:00-0400 SaO2% (BldA) [Mass fraction] 98 % Lisseth Toscano Other [employer] Other 01-25-2023 10:00-0400 Systolic blood pressure 147 mm[Hg] Lisseth Harveys Other [employer] Other 08-15-2022 15:40-0500 Body height 167.6 cm Ebony Kaufman DO Work Phone: [facility] 08-15-2022 15:40-0500 Body weight 89.81 kg Ebonysotero Mccrayok DO Work Phone: [facility] 08-15-2022 15:40-0500 Diastolic blood pressure 78 mm[Hg] Ebony Kaufman DO Work Phone: [facility] 08-15-2022 15:40-0500 Heart rate 61 /min Ebony Kaufman DO Work Phone: [facility] 08-15-2022 15:40-0500 SaO2% (BldA) [Mass fraction] 100 % Ebony Kaufman DO Work Phone: [facility] 08-15-2022 15:40-0500 Systolic blood pressure 148 mm[Hg] Ebony Kaufman DO Work Phone: [facility] 07-10-2022 14:40-0500 Body height 167.64 cm Lisseth Harveydiego Other [employer] Other 07-10-2022 14:40-0500 Body mass index (BMI) [Ratio] 31.95 kg/m2 Lisseth Harveys Other [employer] Other 07-10-2022 14:40-0500 Body weight 89.81 kg Lisseth OrtizLittle Birds Other [employer] Other 07-10-2022 14:40-0500 Diastolic blood pressure 70 mm[Hg] Azryan Ortizhous Other [employer] Other 07-10-2022 14:40-0500 SaO2% (BldA) [Mass fraction] 95 % Azryan OrtizLittle Birds Other [employer] Other 07-10-2022 14:40-0500 Systolic blood pressure 128 mm[Hg] Aziz Bakhous Other [employer] Other 06-05-2022 16:30-0400 Body height 167.64 cm Corona Monroe Other [employer] Other 06-05-2022 16:30-0400 Body mass index (BMI) [Ratio] 32.12 kg/m2 Corona Caseban Other [employer] Other 06-05-2022 16:30-0400 Body temperature 96.5 [degF] Corona Caseban Other [employer] Other 06-05-2022 16:30-0400 Body weight 90.27 kg Corona Monroe Other [employer] Other 06-05-2022 16:30-0400 Diastolic blood pressure 82 mm[Hg] Corona Caseban Other [employer] Other 06-05-2022 16:30-0400 Respiratory rate 20 /min Corona Monroe Other [employer] Other 06-05-2022 16:30-0400 SaO2% (BldA) [Mass fraction] 96 % Corona Monroe Other [employer] Other 06-05-2022 16:30-0400 Systolic blood pressure 140 mm[Hg] Corona Casesoila Other [employer] Other 04-10-2022 09:44-0400 Body height 165.1 cm Ebony Mandeep DO Work Phone: [facility] 04-10-2022 09:44-0400 Body weight 89.68 kg Ebony Mandeep DO Work Phone: [facility] 04-10-2022 09:44-0400 Diastolic blood pressure 69 mm[Hg] Ebony Mandeep DO Work Phone: [facility] 04-10-2022 09:44-0400 Heart rate 57 /min Ebony Kaufman DO Work Phone: [facility] 04-10-2022 09:44-0400 Systolic blood pressure 146 mm[Hg] Ebony Kaufman DO Work Phone: [facility] 02-27-2022 15:30-0400 Body height 167.64 cm Corona Monroe Other [employer] Other 02-27-2022 15:30-0400 Body mass index (BMI) [Ratio] 31.95 kg/m2 Wallaceal Evieban Other [employer] Other 02-27-2022 15:30-0400 Body temperature 96.9 [degF] Wallacekaren Caseban Other [employer] Other 02-27-2022 15:30-0400 Body weight 89.81 kg Corona Caseban Other [employer] Other 02-27-2022 15:30-0400 Diastolic blood pressure 76 mm[Hg] Wallaceal Chaban Other [employer] Other 02-27-2022 15:30-0400 Respiratory rate 20 /min Wallaceal Chaban Other [employer] Other 02-27-2022 15:30-0400 SaO2% (BldA) [Mass fraction] 97 % Kamal Chaban Other [employer] Other 02-27-2022 15:30-0400 Systolic blood pressure 142 mm[Hg] Wallaceal Chaban Other [employer] Other 01-29-2022 12:00-0400 Body height 167.64 cm Cristo Suazo Other [employer] Other 01-29-2022 12:00-0400 Body mass index (BMI) [Ratio] 32.84 kg/m2 Cristo Suazo Other [employer] Other 01-29-2022 12:00-0400 Body weight 92.31 kg Cristo Suazo Other [employer] Other 01-29-2022 12:00-0400 Diastolic blood pressure 78 mm[Hg] Cristo Suazo Other [employer] Other 01-29-2022 12:00-0400 Respiratory rate 18 /min Cristo Suazo Other [employer] Other 01-29-2022 12:00-0400 SaO2% (BldA) [Mass fraction] 98 % Cristo Suazo Other [employer] Other 01-29-2022 12:00-0400 Systolic blood pressure 142 mm[Hg] Cristo Suazo Other [employer] Other 12-26-2021 17:00-0400 Body height 167.64 cm Cristo Suazo Other [employer] Other 12-26-2021 17:00-0400 Body mass index (BMI) [Ratio] 31.15 kg/m2 Cristo Suazo Other [employer] Other 12-26-2021 17:00-0400 Body weight 87.54 kg Cristo Suazo Other [employer] Other 12-26-2021 17:00-0400 Diastolic blood pressure 79 mm[Hg] Cristo Suazo Other [employer] Other 12-26-2021 17:00-0400 Respiratory rate 18 /min Cristo Suazo Other [employer] Other 12-26-2021 17:00-0400 SaO2% (BldA) [Mass fraction] 95 % Cristo Suazo Other [employer] Other 12-26-2021 17:00-0400 Systolic blood pressure 161 mm[Hg] Cristo Suazo Other [employer] Other 12-22-2021 08:25-0400 Body height 165.1 cm Jessie Bright MD Work Phone: [facility] 12-22-2021 08:25-0400 Body weight 87.68 kg Jessie Bright MD Work Phone: [facility] 12-22-2021 08:25-0400 Diastolic blood pressure 70 mm[Hg] Jessie Bright MD Work Phone: [facility] 12-22-2021 08:25-0400 Heart rate 59 /min Jessie Bright MD Work Phone: [facility] 12-22-2021 08:25-0400 Systolic blood pressure 153 mm[Hg] Jessie Bright MD Work Phone: [facility] 05-23-2021 15:40-0400 Body height 167.64 cm Reuben Triana Other [employer] Other 05-23-2021 15:40-0400 Body mass index (BMI) [Ratio] 30.84 kg/m2 Reuben Triana Other [employer] Other 05-23-2021 15:40-0400 Body temperature 96.3 [degF] Reuben Triana Other [employer] Other 05-23-2021 15:40-0400 Body weight 86.68 kg Reuben Triana Other [employer] Other 05-23-2021 15:40-0400 Diastolic blood pressure 62 mm[Hg] Reuben Triana Other [employer] Other 05-23-2021 15:40-0400 Respiratory rate 18 /min Reuben Triana Other [employer] Other 05-23-2021 15:40-0400 SaO2% (BldA) [Mass fraction] 94 % Reuben Triana Other [employer] Other 05-23-2021 15:40-0400 Systolic blood pressure 140 mm[Hg] Reuben Triana Other [employer] Other Encounters Encounter Date Encounter Type Care Provider Facility Start: 04-15-2025 End: 04-15-2025 ambulatory [facility] Start: 04-08-2025 End: 04-08-2025 ambulatory [facility] Start: 04-05-2025 End: 04-05-2025 Telephone encounter Bill Gant MD Work Phone: [facility] 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 Start: 04-05-2025 End: 04-05-2025 ambulatory BILL GANT [facility] Start: 04-02-2025 End: 04-02-2025 Follow-up encounter Bill Gant MD Work Phone: [facility] Comment on above: Results Start: 04-01-2025 End: 04-01-2025 ambulatory BILL GANT Facility:[facility] Start: 04-01-2025 End: 04-01-2025 Patient encounter procedure Bill Gant MD Work Phone: [facility] [place] Comment on above: Coronary artery dise ase involving [place] coronary artery of [place] heart without angina pectoris (Primary Dx); Hx [...] Department Unsolicited Start: 04-01-2025 End: 04-01-2025 ambulatory [facility] Start: 03-11-2025 End: 03-11-2025 Clinisync Result Encounter Generic External Data Provider [facility] External Department Unsolicited Start: 03-11-2025 End: 03-11-2025 Clinisync Result Encounter Generic External Data Provider [facility] External Department Unsolicited Start: 03-10-2025 End: 03-10-2025 Office outpatient visit 25 minutes Darrick Sauer PA-C Work Phone: [facility] Comment on above: Cervical spondylosis (Primary Dx) Start: 03-10-2025 End: 03-10-2025 ambulatory [facility] Start: 03-01-2025 End: 03-01-2025 Bamboo flowsheet Susan Watson EXTRUSION DIE CORRECTOR Work Phone: [facility] Start: 03-01-2025 End: 03-01-2025 Bamboo flowsheet Susan Watson NP Work Phone: [facility] Start: 03-01-2025 End: 03-01-2025 ambulatory SUSAN WATSON Not Available Start: 03-01-2025 End: 03-01-2025 Office outpatient visit 25 minutes Susan Watson NP Work Phone: [facility] Comment on above: Cervical spondylosis (Primary Dx); Chronic diastolic heart failure (HCC); Primary hypertension ; Coronary artery disease involving [place] coronary artery of [place] heart without angina pectoris ; Chronic kidney [...] Department Unsolicited Start: 02-19-2025 End: 02-19-2025 ambulatory [facility] Start: 02-18-2025 End: 02-23-2025 Clinisync Result Encounter Generic External Data Provider [facility] External Department Unsolicited Start: 02-18-2025 End: 02-23-2025 Clinisync Result Encounter Generic External Data Provider [facility] External Department Unsolicited Start: 01-27-2025 End: 01-27-2025 Office outpatient new 45 minutes Darrick Sauer PA-C Work Phone: [facility] Comment on above: Cervical spondylosis (Primary Dx) Start: 01-27-2025 End: 01-27-2025 ambulatory DARRICK SAUER [facility] Start: 01-19-2025 End: 01-19-2025 Patient encounter procedure [facility] Nephrology Adilson Work Phone: Start: 01-19-2025 End: 01-19-2025 Bamboo flowsheet Susan Watson NP Work Phone: [facility] Start: 01-19-2025 End: 01-19-2025 Bamboo flowsheet Susan Watson EXTRUSION DIE CORRECTOR Work Phone: [facility] Start: 01-19-2025 End: 01-19-2025 ambulatory SUSAN WATSON [facility] Work Phone: Start: 01-19-2025 End: 01-19-2025 Office outpatient visit 25 minutes Susan Watson EXTRUSION DIE CORRECTOR Work Phone: [facility] Comment on above: Cervical spondylosis (Primary Dx); Neck pain; Primary hypertension (CMS/HCC); Chronic kidney disease, stage 4 (severe) (CMS/HCC); EDITH (generalized anxiety disorder) ([facility]/HCC); H/O: lung cancer; MCI (mild cognitive impairment) Start: 01-14-2025 [facility] Start: 01-12-2025 [facility] Start: 01-11-2025 End: 01-11-2025 ambulatory SUSAN J [facility] Start: 01-07-2025 End: 01-07-2025 Orders Only Susan Watson EXTRUSION DIE CORRECTOR Work Phone: [facility] Comment on above: Neck pain (Primary D x) Start: 12-24-2024 End: 12-24-2024 Refill Susan Watson EXTRUSION DIE CORRECTOR Work Phone: [facility] Comment on above: Primary hypertension (CMS/HCC); Other hyperlipidemia; Neck pain; Recurrent major 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) (CMS/HCC); Coronary artery disease involving [place] coronary artery of [place] heart without angina pectoris (CMS/HCC); Gastroesophageal reflux disease without esophagitis; Chronic obstructive pulmonary disease, unspecified COPD type (CMS/HCC); EDITH (generalized anxiety disorder) (CMS/HCC) Start: 12-07-2024 End: 12-07-2024 Refill Susan Watson EXTRUSION DIE CORRECTOR Work Phone: [facility] Comment on above: Other hyperlipidemia ; Coronary artery disease involving [place] coronary artery of [place] heart without angina pectoris (CMS/HCC); Primary hypertension (CMS/HCC); Recurrent major 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) (CMS/HCC); EDITH (generalized anxiety disorder) (CMS/HCC) Start: 12-01-2024 End: 12-01-2024 Refill Susan Aichholz EXTRUSION DIE CORRECTOR Work Phone: [facility] Comment on above: EDITH (generalized anx iety disorder) (CMS/HCC) (Primary Dx) Start: 11-19-2024 End: 11-19-2024 Bamboo flowsheet Susan Shirley EXTRUSION DIE CORRECTOR Work Phone: [facility] Start: 11-19-2024 End: 11-19-2024 Bamboo flowsheet Susan Shirley EXTRUSION DIE CORRECTOR Work Phone: [facility] Start: 11-19-2024 End: 11-19-2024 Office outpatient visit 25 minutes Susan Watson EXTRUSION DIE CORRECTOR Work Phone: [facility] Comment on above: Neck pain (Primary D x); Primary hypertension (CMS/HCC); Chronic kidney disease, stage 4 (severe) (CMS/HCC); EDITH (generalized anxiety disorder) (CMS/HCC); Functional gait abnormality; MCI (mild cognitive impairment) Start: 11-19-2024 End: 11-19-2024 ambulatory SUSAN AICHHOLZ Not Available Start: 11-13-2024 End: 11-13-2024 Refill Susan Anaisz EXTRUSION DIE CORRECTOR Work Phone: [facility] Comment on above: Primary hypertension (CMS/HCC); Other hyperlipidemia; Recurrent major 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) (CMS/HCC); Coronary artery disease involving [place] coronary artery of [place] heart without angina pectoris (CMS/HCC); Gastroesophageal reflux disease without esophagitis; EDITH (generalized anxiety disorder) (CMS/HCC) Start: 11-12-2024 End: 11-12-2024 Refill Susan Aicrandolphholz EXTRUSION DIE CORRECTOR Work Phone: [facility] Comment on above: Primary hypertension (CMS/HCC); Other hyperlipidemia; Recurrent major 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) (CMS/HCC); Coronary artery disease involving [place] coronary artery of [place] heart without angina pectoris (CMS/HCC); Gastroesophageal reflux disease without esophagitis; EDITH (generalized anxiety disorder) (CMS/HCC) Start: 11-09-2024 End: 11-09-2024 Refill Susan Watson EXTRUSION DIE CORRECTOR Work Phone: [facility] Comment on above: Other hyperlipidemia (CMS/HCC); EDITH (generalized anxiety disorder) (CMS/HCC); Recurrent major 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) (CMS/HCC) Start: 10-27-2024 End: 10-27-2024 ambulatory [facility] Work Phone: Start: 10-27-2024 End: 10-27-2024 Patient encounter procedure [facility] Nephrology Adilson Work Phone: Start: 10-20-2024 End: 10-20-2024 ambulatory [facility] Start: 10-13-2024 End: 10-13-2024 ambulatory [facility] Start: 10-12-2024 End: 10-12-2024 ambulatory EBONY BLACK Facility:[facility] Start: 10-12-2024 End: 10-12-2024 Patient encounter procedure Ebony Black DO Work Phone: Neurology Comment on above: Gait abnormality (Pr imary Dx); Memory loss; Neck pain Start: 10-08-2024 End: 10-08-2024 Bamboo flowsheet Susan Watson EXTRUSION DIE CORRECTOR Work Phone: [facility] Start: 10-08-2024 End: 10-08-2024 Bamboo flowsheet Susan Watson EXTRUSION DIE CORRECTOR Work Phone: [facility] Start: 10-08-2024 End: 10-08-2024 ambulatory SUSAN WATSON Not Available Start: 10-08-2024 End: 10-08-2024 Office outpatient visit 25 minutes Susan Watson EXTRUSION DIE CORRECTOR Work Phone: [facility] Comment on above: Primary hypertension (CMS/HCC) (Primary Dx); Chronic obstructive pulmonary disease, unspecified (CMS/HCC); Chronic kidney disease, stage 4 (severe) (CMS/HCC); Coronary artery disease involving [place] coronary artery of [place] heart without angina pectoris (CMS/HCC); Gastroesophageal reflux disease without esophagitis; EDITH (generalized anxiety disorder) (CMS/HCC); Recurrent major depressive disorder, in full remission (CMS/HCC); Mixed hyperlipidemia (CMS/HCC); MCI (mild cognitive impairment); Other hyperlipidemia (CMS/HCC); Recurrent major 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) (CMS/HCC); Chronic obstructive pulmonary disease, unspecified COPD type (CMS/HCC) Start: 09-08-2024 End: 09-08-2024 ambulatory MISTY POLO Facility:[facility] Start: 09-08-2024 End: 09-08-2024 Patient encounter procedure Misty Polo PhD Work Phone: Neuropyschology Comment on above: Major neurocognitive disorder (HCC) (Primary Dx); JITENDRA (obstructive sleep apnea); Chronic kidney disease, unspecified CKD stage; Coronary artery disease, unspecified vessel or lesion type, unspecified whether angina present, unspecified whether [place] or transplanted heart; Complaints of memory disturbance Start: 06-27-2024 End: 06-27-2024 Orders Only Jayy Coronado EXTRUSION DIE CORRECTOR Work Phone: [facility] Comment on above: 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) (CMS/HCC) Start: 06-23-2024 End: 06-23-2024 External Result Encounter Jayy Coronado EXTRUSION DIE CORRECTOR Work Phone: [facility] External Department Unsolicited Start: 06-23-2024 End: 06-23-2024 External Result Encounter Jayy Coronado EXTRUSION DIE CORRECTOR Work Phone: [facility] External Department Unsolicited Start: 06-23-2024 End: 06-23-2024 [facility] JAYY CORONADO [facility] Start: 06-17-2024 End: 06-17-2024 Bamboo flowsheet Jayy Coronado EXTRUSION DIE CORRECTOR Work Phone: [facility] Start: 06-17-2024 End: 06-17-2024 Bamboo flowsheet Jayy Coronado EXTRUSION DIE CORRECTOR Work Phone: [facility] Start: 06-17-2024 End: 06-17-2024 ambulatory JAYY WALSHTRICK Not Available Start: 06-17-2024 End: 06-17-2024 Office outpatient visit 15 minutes Jayy Walshtrick EXTRUSION DIE CORRECTOR Work Phone: [facility] Comment on above: Primary hypertension (CMS/HCC) (Primary Dx); Other hyperlipidemia (CMS/HCC); Coronary artery disease involving [place] coronary artery of [place] heart without angina pectoris (CMS/HCC); Frequent falls; Functional gait abnormality; CKD (chronic kidney disease) stage 4, GFR 15-29 ml/min (CMS/HCC) Start: 06-10-2024 End: 06-10-2024 Bamboo flowsheet Jayy Coronado EXTRUSION DIE CORRECTOR Work Phone: [facility] Start: 06-10-2024 End: 06-10-2024 Bamboo flowsheet Jayy Shayzpatrick EXTRUSION DIE CORRECTOR Work Phone: [facility] Start: 06-10-2024 ambulatory JAYY JIMENEZK No t Available Start: 05-12-2024 ambulatory EBONY KAUFMAN Facility: [facility] Start: 05-12-2024 End: 05-12-2024 Subsequent hospital visit by physician [facility] Radiology Comment on above: Memory loss [R41.3] Start: 05-04-2024 End: 05-04-2024 ambulatory EBONY BLACK Facility:[facility] Start: 05-04-2024 End: 05-04-2024 Patient encounter procedure Ebony Black DO Work Phone: Neurology Comment on above: Memory loss (Primary Dx); Abnormality of gait Start: 03-31-2024 End: 03-31-2024 ambulatory [facility] Work Phone: Start: 03-31-2024 End: 03-31-2024 Patient encounter procedure [facility] Nephrology Adilson Work Phone: Start: 03-28-2024 End: 03-30-2024 Refill Shaikh Cornelio LEMON Work Phone: [facility] Comment on above: Gastroesophageal ref lux disease without esophagitis; Recurrent major 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) (CMS/HCC) Start: 03-11-2024 End: 03-11-2024 ambulatory SHAIKH CORNELIO Not Available Start: 09-19-2023 End: 09-19-2023 Office outpatient visit 25 minutes Shaikh Cornelio LEMON Work Phone: [facility] Comment on above: 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/HCC); CKD (chronic kidney disease) stage 4, GFR 15-29 ml/min ([facility]/HCC); Gastroesophageal reflux disease without esophagitis; Coronary artery disease involving [place] coronary artery of [place] heart without angina pectoris ([facility]/HCC); Primary hypertension ([facility]/HCC); Chronic obstructive pulmonary disease, unspecified COPD type ([facility]/HCC) Start: 04-09-2023 End: 04-09-2023 Emergency department patient visit NON STAFF Facility:[facility] Start: 04-09-2023 End: 04-09-2023 ambulatory Lisseth Toscano Other [employer] Other Start: 04-09-2023 Telephone encounter Lisseth Toscano [facility] Start: 03-13-2023 End: 10-01-2023 ambulatory [place] Start: 01-25-2023 End: 01-25-2023 ambulatory Azryan Toscano Other [employer] Other Start: 01-25-2023 Office outpatient vi sit 25 minutes Aziz Bakhous [facility] Start: 08-15-2022 End: 08-15-2022 Patient encounter procedure Ebony Cade Mandeep DO Work Phone: Neurology Comment on above: MCI (mild cognitive impairment) (Primary Dx) Start: 07-27-2022 End: 07-28-2022 ambulatory SHAIKH Randolph GRIMES Facility:[facility] Start: 07-10-2022 End: 07-10-2022 ambulatory Aziz Bakhous Other [employer] Other Start: 07-10-2022 Office outpatient vi sit 15 minutes Aziz Bakhous [facility] [place] Start: 07-07-2022 End: 07-08-2022 ambulatory AZIZ BAKHOUS Facility:[facility] Start: 07-03-2022 End: 07-03-2022 ambulatory Corona Monroe Facility:[facility] Start: 06-26-2022 End: 06-26-2022 ambulatory Nadira Choi Other [employer] Other Start: 06-26-2022 Telephone encounter Nadira Choi [facility] [place] Start: 06-05-2022 End: 06-05-2022 ambulatory Corona Monroe Other [employer] Other Start: 06-05-2022 Office outpatient vi sit 25 minutes Kamkaren Monroe [facility] Start: 05-29-2022 End: 05-29-2022 ambulatory Thomas Hurtado Other [employer] Other Start: 05-29-2022 Telephone encounter Thomas Hurtado [facility] Start: 05-01-2022 Telephone encounter Elsa garcia [facility] 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) Start: 04-11-2022 End: 04-11-2022 Patient encounter procedure MD Corona Monroe Work Phone: [facility] Start: 04-10-2022 End: 04-10-2022 Patient encounter procedure Ebony Kaufman DO Work Phone: Neurology Comment on above: 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) (Primary Dx); MCI (mild cognitive impairment) Start: 03-13-2022 End: 03-13-2022 ambulatory Thomas Genesis Other [facility] Other Start: 03-13-2022 Telephone encounter Thomas Genesis [facility] Start: 03-05-2022 End: 03-05-2022 ambulatory Thomas Genesis Other [facility] Other Start: 03-05-2022 Telephone encounter Thomas Genesis [facility] Start: 02-28-2022 End: 02-28-2022 ambulatory Kamal Evieban Other [facility] Other Start: 02-28-2022 Telephone encounter Kamkaren Casesoila [facility] Start: 02-27-2022 End: 02-27-2022 ambulatory Kamal Chaban Other [facility] Other Start: 02-27-2022 Office outpatient ne w 45 minutes Kamkaren Caseban [facility] Start: 02-21-2022 Telephone encounter Cristo Bender [facility] [place] Start: 02-21-2022 End: 02-22-2022 ambulatory SHAIKH Randolph GRIMES [facility] Other Start: 02-09-2022 End: 02-09-2022 ambulatory [facility] Other Phone: Pulmonary Medicine Comment on above: Spirometry Question regarding M RI BRAIN WO IVCON Start: 02-09-2022 End: 02-09-2022 Patient encounter procedure [facility] Other Phone: [facility] Start: 02-08-2022 End: 02-08-2022 Orders Only Driss Nur MD Work Phone: [facility] Comment on above: Cognitive impairment , mild, so stated (Primary Dx) Shortness of breath (Primary Dx) Cognitive impairment , mild, so stated [G31.84] Start: 02-08-2022 Telephone encounter Thomas Genesis [facility] Start: 01-29-2022 End: 01-29-2022 ambulatory Cristo Suazo Other [facility] Other Start: 01-29-2022 Office outpatient vi sit 15 minutes Cristo Suazo [facility] [place] Start: 01-05-2022 End: 01-05-2022 ambulatory Cristo Suazo Other [facility] Other Start: 01-05-2022 Telephone encounter Cristo Bender [facility] [place] Start: 01-01-2022 End: 01-01-2022 ambulatory Cristo Suazo Other [facility] Other Start: 01-01-2022 Telephone encounter Cristo Bender [facility] [place] Start: 12-26-2021 End: 12-26-2021 ambulatory Cristo Suazo Other [facility] Other Start: 12-26-2021 Office [facility] [place] Start: 12-22-2021 End: 12-22-2021 Patient encounter procedure Jessie Bright MD Work Phone: Neurology Comment on above: 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); Cognitive impairment, mild, so stated; Depression, unspecified depression type Start: 12-18-2021 End: 12-18-2021 ambulatory Thomas Genesis Other [facility] Other Start: 12-18-2021 Telephone encounter Thomas Genesis [facility] Start: 12-06-2021 End: 12-06-2021 ambulatory Thomas Genesis Other [facility] Other Start: 12-06-2021 Telephone encounter Thomas Genesis [facility] Start: 12-04-2021 End: 12-04-2021 ambulatory Cristo Suazo Other [facility] Other Start: 12-04-2021 Telephone encounter Cristo Bender [facility] [place] Start: 09-13-2021 End: 09-13-2021 ambulatory Thomas Genesis Other [facility] Other Start: 09-13-2021 Telephone encounter Thomas Genesis [facility] Start: 08-16-2021 End: 08-16-2021 ambulatory Cristo Suazo Other [employer] Other Start: 08-16-2021 Telephone encounter [facility]o [facility] Start: 05-30-2021 Telephone encounter [facility] Start: 05-23-2021 Office outpatient vi sit 25 minutes Reuben Triana [facility] [place] Start: 05-23-2021 Telephone encounter Susannah cade [facility] [place] Start: 04-03-2018 End: 04-04-2018 Patient encounter [facility] Facility:[facility] Start: 03-28-2018 End: 03-29-2018 Patient encounter [facility] Facility:[facility] Procedures Date Procedure Procedure [...] Phone: Start: 06-23-2024 Lipid panel Jayy carranza [employer] Work Phone: Start: 06-23-2024 Lipid 1996 panel [...] Screening for malign ant neoplasm of colon [facility] Start: 10-20-2029 Lipid panel Lipid Screening [facility] Start: 06-23-2029 Lipid panel Lipid Screening [facility] Start: 2028 RSV Vaccine (1 - 1-d ose 75+ series) RSV Vaccine (1 - 1-dose 75+ series) [facility] Start: 03-10-2026 Adult BMI Screening Adult BMI Screen ing [facility] Start: 03-10-2026 Tobacco Screening Tobacco Screening [facility] Start: 01-27-2026 Adult BMI Screening Adult BMI Screen ing [facility] Start: 01-27-2026 Tobacco Screening Tobacco Screening [facility] Start: 01-12-2026 Creatinine measurement Serum Creatin ine [facility] Start: 05-31-2025 End: 05-31-2025 Patient encounter procedure 05/31/2025 1:20 PM EDT Office [facility] [address] [place] [address] Susan Watson NP [address] [place] [phone] [facility] Start: 05-02-2025 End: 05-01-2026 NM Heart Perfusion W stress and W radionuclide IV NM CARDIAC PERF STRESS/PHARM Radiology Routine Coronary artery disease involving ivanof bay coronary artery of ivanof bay heart without angina pectoris Hx of CABG Other emphysema (HCC) ROMAN (dyspnea on exertion) Expected: 05/02/2025 (Approximate), Expires: 05/01/2026 [facility] Work Phone: Comment on above: Expected: 05/02/2025 (Approximate), Expires: 05/01/2026 Start: 04-16-2025 End: 07-16-2025 Basic metabolic 2000 panel - Serum or Plasma BASIC METABOLIC PANEL Lab Routine Chronic heart failure with preserved ejection fraction (HCC) Expected: 04/16/2025 (Approximate), Expires: 07/16/2025 [facility] Work Phone: Comment on above: Expected: 04/16/2025 (Approximate), Expires: 07/16/2025 Start: 04-16-2025 End: 04-16-2025 Patient encounter procedure 04/16/2025 11:00 AM EDT Office Visit Neurology [address] [place] [address] Ebony Trent DO [address] [place] [address] 6 month follow up Neurology Comment on above: 6 month follow up Start: 04-15-2025 End: 05-01-2026 LUNG DIFFUSION CAPACITY (DLCO) LUNG DIFFUSION CAPACITY (DLCO) PFT Routine Other emphysema (HCC) Expected: 04/15/2025 (Approximate), Expires: 05/01/2026 [facility] Comment on above: Expected: 04/15/2025 (Approximate), Expires: 05/01/2026 Start: 04-15-2025 End: 05-01-2026 LUNG VOLUMES LUNG VOLUMES PFT Routine Other emphysema (HCC) Expected: 04/15/2025, Expires: 05/01/2026 [facility] Comment on above: Expected: 04/15/2025 , Expires: 05/01/2026 Start: 04-15-2025 End: 05-01-2026 SPIROMETRY BASELINE ONLY SPIROMETRY BASELINE ONLY PFT Routine Other emphysema (HCC) Expected: 04/15/2025 (Approximate), Expires: 05/01/2026 [facility] Comment on above: Expected: 04/15/2025 (Approximate), Expires: 05/01/2026 Start: 04-15-2025 End: 05-01-2026 XR Chest PA and Lateral XR CHEST 2V FRONTAL/LAT Radiology Routine Other emphysema (HCC) Expected: 04/15/2025 (Approximate), Expires: 05/01/2026 [facility] Comment on above: Expected: 04/15/2025 (Approximate), Expires: 05/01/2026 Start: 04-12-2025 Influenza vaccination N [facility] Start: 03-10-2025 End: 03-10-2026 MR Cervical spine WO contrast MR cervical spine without contrast Imaging Routine Cervical spondylosis Expected: 03/10/2025, Expires: 03/10/2026 [facility] Work Phone: Comment on above: Expected: 03/10/2025 , Expires: 03/10/2026 Start: 03-10-2025 End: 03-10-2025 Patient encounter procedure 03/10/2025 9:45 AM EDT Office Visit [facility] [address] [place] [phone] Darrick Sauer, PA-C [address] [place] [address] [facility] Start: 03-01-2025 End: 03-01-2025 Patient encounter procedure 03/01/2025 1:40 PM EDT Office Visit [facility] [address] [place] [address] Susan Watson, PARI [address] [place] [address] [facility] Start: 02-19-2025 End: 02-19-2025 Admission to same day surgery center 02/19/2025 2:58 PM EDT - 02/19/2025 3:07 PM EDT Surgery [facility] [address] [place] [phone] Abiodun Cherry MD [address] [place], [place] [phone] INJECTION FACET JOINT Bilateral C 5/6,6/7 [91132 (CPT )] [facility] Comment on above: INJECTION FACET JOIN T Bilateral C 5/6,6/7 [89544 (CPT )] Start: 02-19-2025 End: 02-19-2025 Njx dx/ther agt pvrt facet jt crv/thrc 1 level INJECTION FACET JOINT Cervical spondylosis 02/19/2025 2:58 PM EDT [facility] Start: 02-19-2025 Subsequent hospital visit by physician 02/19/2025 2:58 PM EDT Hospital Encounter [facility] [address] [place] [phone] Abiodun Cherry MD [address] [place], [place] [phone] [facility] Start: 01-19-2025 End: 01-19-2025 Patient encounter procedure 01/19/2025 1:00 PM EDT Office Visit [facility] [address] [place] [phone] Susan Watson NP [address] [place] [phone] [facility] Start: 01-07-2025 End: 01-07-2026 XR Cervical spine 2 or 3 Views XR cervical spine 2 or 3 views Imaging Routine Neck pain Expected: 01/07/2025 (Approximate), Expires: 01/07/2026 [facility] Work Phone: Comment on above: Expected: 01/07/2025 (Approximate), Expires: 01/07/2026 Start: 11-19-2024 End: 11-19-2024 Patient encounter procedure [facility] Comment on above: Chronic obstructive pulmonary disease, unspecified COPD type (CMS/HCC) (Primary Dx); Coronary artery disease involving ivanof bay coronary artery of ivanof bay heart without angina pectoris (CMS/HCC); Atherosclerosis of arteries of extremities (CMS/HCC); Primary hypertension (CMS/HCC); Gastroesophageal reflux disease without esophagitis; Chronic kidney disease, stage 4 (severe) (CMS/HCC); EDITH (generalized anxiety disorder) (CMS/HCC) Start: 09-16-2024 End: 09-16-2024 Patient encounter procedure 09/16/2024 1:00 PM EST Office Visit [facility] [address] [place] [phone] Jayy Coronado NP [address] [place] [phone] [facility] Start: 08-12-2024 Advance Directive Discussion Advance Directive Discussion [facility] Start: 08-12-2024 Medicare Advantage Annual Wellness Visit Medicare Advantage Annual Wellness Visit [facility] Start: 06-30-2024 End: 06-30-2024 ambulatory 06/30/2024 11:30 AM EST Evaluation [facility] [address] [place] [phone] Babak Aquino, PT [address] [place] [address] [facility] Start: 06-17-2024 End: 06-17-2025 Lipid 1996 panel - Serum or Plasma Lipid panel Lab Routine Primary hypertension (CMS/HCC) Expected: 06/17/2024 (Approximate), Expires: 06/17/2025 [facility] Comment on above: Expected: 06/17/2024 (Approximate), Expires: 06/17/2025 Start: 06-10-2024 End: 06-10-2024 Patient encounter procedure [facility] Comment on above: Arrived Start: 05-19-2024 Diabetes Screening Diabetes Screenin g [facility] Start: 05-12-2024 End: 05-12-2024 Patient encounter procedure 05/12/2024 7:45 AM EDT Appointment Radiology [address] [place] [address] ct wo contrast Radiology Comment on above: ct wo contrast Start: 04-12-2024 Covid-19 Vaccine ( season) Covid-19 Vaccine ( season) [facility] Start: 04-12-2024 Influenza vaccination Influenza Vacc ine (#1) [facility] Start: 12-24-2023 End: 12-24-2023 Patient encounter procedure 12/24/2023 1:15 PM EDT Office Visit [facility] [address] [place] [phone] Shaikh Grimes MD [address] [place] [address] [facility] Start: 09-19-2023 End: 09-19-2024 CBC W Auto Differential panel - Blood CBC and differential Lab Routine Recurrent major 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) (CMS/HCC) CKD (chronic kidney disease) stage 4, GFR 15-29 ml/min (CMS/HCC) Coronary artery disease involving ivanof bay coronary artery of ivanof bay heart without angina pectoris (CMS/HCC) Primary hypertension (CMS/HCC) Expected: 09/19/2023 (Approximate), Expires: 09/19/2024 [facility] Work Phone: Comment on above: Expected: 09/19/2023 (Approximate), Expires: 09/19/2024 Start: 09-19-2023 End: 09-19-2024 Comprehensive metabolic 2000 panel - Serum or Plasma Comprehensive metabolic panel Lab Routine Recurrent major 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) ([facility]) CKD (chronic kidney disease) stage 4, GFR 15-29 ml/min ([facility]) Coronary artery disease involving ivanof bay coronary artery of ivanof bay heart without angina pectoris ([facility]) Primary hypertension ([facility]) Expected: 09/19/2023 (Approximate), Expires: 09/19/2024 [facility] Comment on above: Expected: 09/19/2023 (Approximate), Expires: 09/19/2024 Start: 09-19-2023 End: 09-19-2024 Creatinine [Mass/volume] in Urine Creatinine, urine, random Lab Routine CKD (chronic kidney disease) stage 4, GFR 15-29 ml/min ([facility]/HCC) Expected: 09/19/2023 (Approximate), Expires: 09/19/2024 [facility] Comment on above: Expected: 09/19/2023 (Approximate), Expires: 09/19/2024 Start: 09-19-2023 End: 09-19-2024 Lipid 1996 panel - Serum or Plasma Lipid panel Lab Routine Other hyperlipidemia ([facility]) Expected: 09/19/2023 (Approximate), Expires: 09/19/2024 [facility] Comment on above: Expected: 09/19/2023 (Approximate), Expires: 09/19/2024 Start: 09-19-2023 End: 09-19-2024 Protein, urine, random Protein, urine, random Lab Routine CKD (chronic kidney disease) stage 4, GFR 15-29 ml/min ([facility]/HCC) Expected: 09/19/2023 (Approximate), Expires: 09/19/2024 [facility] Comment on above: Expected: 09/19/2023 (Approximate), Expires: 09/19/2024 Start: 08-12-2023 Advance Directive Discussion Advance Directive Discussion [facility] Start: 04-12-2023 Influenza vaccination Influenza Vacc ine (#1) [facility] Start: 12-22-2022 Adult depression screening assessment DEPRESSION SCREENING [facility] Start: 08-12-2022 ADVANCE DIRECTIVE DISCUSSION ADVANCE DIRECTIVE DISCUSSION [facility] Start: 04-12-2022 Influenza vaccination INFLUENZA (#1) 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) Depression, unspecified depression type Expected: 12/22/2021, Expires: 02/21/2022 [facility] Work Phone: Comment on above: Expected: 12/22/2021 , Expires: 02/21/2022 Start: 12-22-2021 End: 02-21-2022 Thyrotropin [Units/volume] in Serum or Plasma TSH BLD Lab Routine Cognitive impairment, mild, so stated 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) Depression, unspecified depression type Expected: 12/22/2021, Expires: 02/21/2022 [facility] Work Phone: Comment on above: Expected: 12/22/2021 , Expires: 02/21/2022 Start: 12-22-2021 End: 02-21-2022 VITAMIN B12 BLOOD VITAMIN B12 BLOOD Lab Routine Cognitive impairment, mild, so stated 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 Start: 10-01-2021 COVID-19 VACCINE (4 - Booster for Pfizer series) COVID-19 VACCINE (4 - Booster for Pfizer series) [facility] Start: 08-12-2021 ADVANCE DIRECTIVE DISCUSSION ADVANCE DIRECTIVE DISCUSSION [facility] Start: 2018 Fall Risk Screening Fall Risk Screen ing [facility] Start: 2018 PNEUMOCOCCAL: 65+ (1 - PCV) PNEUMOCOCCAL: 65+ (1 - PCV) [facility] Start: 2018 PNEUMOVAX AGE 65 AND OVER WITH 5YR LOOKBACK (#1) PNEUMOVAX AGE 65 AND OVER WITH 5YR LOOKBACK (#1) [facility] Start: 2013 RSV Vaccine (1 - Ris k 60-74 years 1-dose series) RSV Vaccine (1 - Risk 60-74 years 1-dose series) [facility] Start: 2008 PROSTATE CANCER SCREENING DISCUSSION PROSTATE CANCER SCREENING DISCUSSION [facility] Start: 2003 Administration of varicella zoster vaccine Zoster (Shingles) Vaccine (1 of 2) [facility] Start: 2003 SHINGRIX VACCINE (1 of 2) SHINGRIX VACCINE (1 of 2) [facility] Start: 1998 COLOGUARD (FIT-DNA) COLOGUARD (FIT-D NA) [facility] Start: [address] [facility] Start: 1998 COLORECTAL CANCER SCREENING COLORECTAL CANCER SCREENING [facility] Start: [address] COLONOGRAPHY [facility] Start: 1998 DIABETES SCREEN DIABETES SCREEN [facility] Start: 1998 FECAL OCCULT BLOOD FECAL OCCULT BLOO D [facility] Start: 1998 Screening for malign ant neoplasm of colon [facility] Start: 1998 SIGMOIDOSCOPY SIGMOIDOSCOPY [facility] Start: 1988 Lipid panel Lipid Screening [facility] Start: 1988 LIPID SCREEN LIPID SCREEN [facility] Start: 1972 DTaP,Tdap and Td Vaccines (1 - Tdap) DTaP,Tdap and Td Vaccines (1 - Tdap) [facility] Start: [address] [facility] Start: 1971 Adult BMI Follow Up Plan Adult BMI F ollow Up Plan 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 Start: 1971 Anxiety Screening Anxiety Screening [facility] Start: 1971 Hepatitis B surface antibody level LDL Cholesterol [facility] Start: 1971 HEPATITIS C SCREENING HEPATITIS C [facility] Start: 1971 Hepatitis C screening Hepatitis C [facility] Start: 1965 Depression Screening Depression Scre ening [facility] Start: 1953 Medicare Annual Well ness (AWV) Medicare Annual Wellness (AWV) [facility] Start: 1953 Screening for malign ant neoplasm of colon [facility] Start: 1953 Tobacco Counseling Tobacco Counselin g [facility] CBC W Auto Different ial panel - Blood CBC and differential Lab Routine Primary hypertension (CMS/HCC) Ordered: 06/17/2024 [facility] Work Phone: Comment on above: Ordered: 06/17/2024 Comprehensive metabo lic 2000 panel - Serum or Plasma Comprehensive metabolic panel Lab Routine Primary hypertension (CMS/HCC) Ordered: 06/17/2024 [facility] Comment on above: Ordered: 06/17/2024 End: 06-03-2025 CT Head WO contrast CT BRAIN WO IVCON Radiology Routine Memory loss 1 Occurrences starting 05/04/2024 until 06/03/2025 [facility] Work Phone: Comment on above: 1 Occurrences starti ng 05/04/2024 until 06/03/2025 End: 01-21-2023 Mri brain brain stem w/o contrast material MRI BRAIN WO IVCON Radiology Routine Cognitive impairment, mild, so stated 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 Immunizations Immunization Date Immunization Notes Care Provider Marina quesada 08-06-2021 COVID-19 Vaccine Pfi zer - Documentation Purposes Only Corona Monroe Other [facility] [employer] Other 05-23-2021 influenza, high dose seasonal, preservative-free Susannahmelly Nevarez Other [facility] [employer] Other 05-23-2021 Influenza, High-dose Seasonal, Quadrivalent, Preservative Free Shaikh Cornelio LEMON Work Phone: [facility] 05-23-2021 influenza virus vaccine, unspecified formulation Shaikh Cornelio LEMON Work Phone: [facility] 11-08-2020 COVID-19 Pfizer Susannah montano Other [employer] [facility] [employer] Other 10-19-2020 COVID-19 Vaccine Pfi zer - Documentation Purposes Only Susannah Nevarez Other [facility] [employer] Other 08-03-2020 influenza, high dose seasonal, preservative-free Susannahmelly Nevarez Other [facility] [employer] Other 08-03-2020 pneumococcal polysaccharide vaccine, 23 valent Susannahmelly Nevarez Other [place] [employer] Other 08-03-2020 influenza virus vaccine, unspecified formulation [facility] 08-03-2020 Influenza, High-dose Seasonal, Quadrivalent, Preservative Free Shaikh Cornelio LEMON Work Phone: [facility] 08-27-2019 pneumococcal conjuga te vaccine, 13 valent Susannahmelly Nevarez Other [employer] Other Payers Date Payer Category Payer Medicare (Managed Care) 1.2. [id number] 2024 Medicare HMO [employer] M EDICARE [id number] 2024 Unknown [id number] 2023 Medicaid [employer] MEDICARE A DVANTAGE [id number] 2022 [facility] er [id number] 2022 Self-pay [id number] 2020 Unknown ELIJAH ALEC ACCE SS PPO [id number] 2020-Present [phone] [address] [place] [address] PPO [id number] 2018 Unknown 2015 Medicare MEDICARE MEDICAR E A AND B [id number] 2015-Present [phone] [place] [address] Medicare [id number] 2015 Medicare [id number]. [id number] 1953 Unknown [id number] 2.16.840.1.544287.3.579.2. 593 1953 Unknown [id number] 2.16.840.1.267487.3.579.2. 593 1953 Unknown [id number] 2.16.840.1.408707.3.579.2. 593 1953 Unknown [id number] 2.16.840.1.900973.3.579.2. 1259 1953 Unknown [id number] 2.16.840.1.183182.3.579.2. 1259 1953 Unknown [id number] 2.16.840.1.077760.3.579.2. 1259 1953 Unknown [id number] 2.16.840.1.563227.3.579.2. 1259 1953 Unknown [id number] 2.16.840.1.408021.3.579.2. 9 1953 Unknown [id number] 2.16.840.1.265681.3.579.2. 9 1953 Unknown [id number] 2.16.840.1.367953.3.579.2. 1259 1953 Unknown [id number] 2.16.840.1.294837.3.579.2. 1285 1953 Unknown [id number] 2.16.840.1.957380.3.579.2. 1285 1953 Unknown [id number] 2.16.840.1.824423.3.579.2. 1285 1953 Unknown [id number] 2.16.840.1.485717.3.579.2. 1285 1953 Unknown [id number] 2.16.840.1.642165.3.579.2. 1285 1953 Unknown [id number] 2.16.840.1.910875.3.579.2. 1285 1953 Unknown [id number] 2.16.840.1.753530.3.579.2. 1285 1953 Unknown [id number] 2.16.840.1.069918.3.579.2. 128 1953 Unknown [id number] 2.16.840.1.585484.3.579.2. 1285 1953 Unknown [id number] 2.16.840.1.168702.3.579.2. 1285 1953 Unknown [id number] 2.16.840.1.080447.3.579.2. 1286 Blue Cross Blue Shield [id number] 2.16.840.1.989322.19 Medicare [id number] 2.16.840.1.363250.19 Private Health Insurance [id number] Unknown O [id number] Unknown [id number] 2.16.840.1.569532.3.579.2. 531 Unknown [id number] 2.16.840.1.198639.3.579.2. 531 Social History Date Type Detail Facility Start: 12-22-2021 End: 08-15-2022 Tobacco smoking status NYIS Never smoked tobacco [facility] Start: 12-22-2021 End: 01-27-2025 Tobacco use and exposure User of smokeless tobacco [facility] End: 07-14-2022 History of tobacco use Chews Tobacco [facility] Start: 1955 Sex Assigned At Not on file C [facility] Start: 12-12-2021 End: 04-10-2022 Exposure to SARS-CoV-2 (event) Not sure [facility] Start: 05-16-2023 End: 07-22-2023 Sex Assigned At [facility] Start: 09-30-2020 End: 03-11-2024 Tobacco smoking status NYIS Ex-smoker (finding) [facility] Start: 1955 Sex Assigned At Male F [facility] Start: 08-15-2022 Tobacco use and exposure Former smokeless tobacco user [facility] History of tobacco use Current smoker [facility] History of tobacco use Cigarette Smoker [facility] Start: 07-12-2023 End: 03-11-2024 Tobacco use and exposure Smokeless tobacco non-user [facility] Start: 09-19-2023 End: 03-01-2025 Alcohol intake Lifetime non-drinker (finding) [facility] Start: 05-16-2023 End: 07-22-2023 History of [...] Start: 10-02-2019 End: 10-27-2024 Sex Male (finding) [facility] How often do you nee d [...] Start: 04-01-2025 Alcoholic beverage intake Ex-drinker (finding) [facility] NEGATED: Highlighted rowStart: VIVIENNE History of tobacco use Passive smoker [facility] Medical Equipment Procedure Code Equipment Code Equipment Origin al Text Equipment Identifier Dates Repair, hernia, umbilical Abdominal hernia surgical mesh, composite-polymer ([id number] [facility] Start: 09-30-2020 Goals Date Patient Goal Desired Activity /State Personal health goal Clinical Notes 05-23-2021 to 04-05-2025 Telephone Encounter - Mariana Wheeler LPN - 04/05/2025 4:02 PM EDTTelephone Encounter - Mariana Wheeler LPN - 04/05/2025 4:02 PM EDTAddendum Note - Bill Gant MD - 04/02/2025 8:18 AM EDT Note Date & Type Note Facility 04-05-2025 Telephone encounter Note Chest x-ray results received from [email or web address]. Scanned in for review. Mariana Wheeler LPN [facility] 04-05-2025 Miscellaneous Notes Chest x-ray results received from [email or web address]. Scanned in for review. Mariana Wheeler LPN documented in this encounter [facility] 04-02-2025 Telephone encounter Note I spoke to Nini and informed them of 's response and recommendations. She voiced understanding and will call back with fax number for lab of choice. Brianne Butt LPN [facility] 04-02-2025 Miscellaneous Notes I spoke to Nini [...] 2 weeks that can be done in [facility] I spoke to Nini and informed them of 's response to lab results and recommendations. She voiced understanding and wants to go ahead and start both medications. [facility] in [place] on file is pharmacy of choice. Brianne [...] Bill Gant MD documented in this encounter [facility] 04-02-2025 Note Addended by: BILL GANT on: 04/02/2025 08:18 AM Modules accepted: Orders [facility] 04-02-2025 Telephone encounter Note If the Jardiance is too expensive just have them cancel that particular prescription. I will order a BMP for about 2 weeks that can be done in [facility] 04-02-2025 Telephone encounter Note I spoke to Nini and informed them of 's response to lab results and recommendations. She voiced understanding and wants to go ahead and start both medications. [facility] in [place] on file is pharmacy of choice. Brianne Butt LPN [facility] 04-02-2025 Telephone encounter Note ----- Message from [...] 5:02 PM EDT To: Bill Gant MD [facility] 04-01-2025 Instructions Bill Gant MD - 04/01/2025 3:01 PM EDT [...] get back with you. Please ask your individualized education plan aide to send results of the peripheral artery imaging that is planned to look at your legs in the next few weeks. documented in this encounter [facility] 04-01-2025 History of Present illness Narrative Chief Complaint No chief complaint on file. History of Present Illness: Samir Castillo is a 69-year-old male with a history of CAD, status post-CABG, HTN, HLD, COPD, PAD, stage 4 CKD, and mild cognitive impairment, presenting for a new patient visit. He lives in [place] and gets most of his care in [place] at [facility] but just wants a second opinion on [...] supplemental oxygen. He has not seen a credit and collection manager recently and has not had any pulmonary [...] family for transportation. He worked at a [employer] before retiring. He quit smoking 40 years [...] 1/2 TABLETS BY MOUTH EVERY DAY omega 2-drh-sgf-fish oil (FISH OIL) 100-160-1,000 mg cap Take [...] and Plan: 1. Coronary artery disease involving ivanof bay coronary artery of ivanof bay heart without angina pectoris (I25.10) 2. Hx [...] (chronic renal insufficiency), stage 4 (severe) (HCC) (N18.4) Stage 4 renal insufficiency; most recent [...] planned peripheral angiogram by Dr. Tolliver at [facility]. - Discussed potential interventions (balloon angioplasty, stenting, surgery) depending on angiogram findings. - Advised patient and family to ensure results are sent to our office for review. 9. Other emphysema ([facility]) (J43.8) COPD with mild baseline symptoms; no [...] avoid him having to come back to [place] or [place] for all this testing. If they are done locally in the [facility] and the [facility] or in [place] I would then asked that results be sent to our office when available. Thank you Electronically signed by Bill Gant MD on March 31, 2025, 7:13 AM [1] Social History Tobacco Use Smoking status: Never Smokeless tobacco: Former Types: Chew Quit date: 07/14/2022 documented in this encounter [facility] 04-01-2025 Note HNO ID: [id number] Author: BILL GANT MD Service: ? Author Type: Physician Type: Progress Notes Filed: 04/01/2025 15:11 Note Text: Chief Complaint No chief complaint on file. History of Present Illness: Samir Castillo is a 69-year-old male with a history of CAD, status post-CABG, HTN, HLD, COPD, PAD, stage 4 CKD, and mild cognitive impairment, presenting for a new patient visit. He lives in [place] and gets most of his care in [place] at [facility] but just wants a second opinion on [...] supplemental oxygen. He has not seen a credit and collection manager recently and has not had any pulmonary [...] family for transportation. 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 He quit smoking 40 [...] 1/2 TABLETS BY MOUTH EVERY DAY omega 2-aln-fdp-fish oil (FISH OIL) 100-160-1,000 mg cap Take [...] resting tachypnea H (more content not included)... [facility] 03-10-2025 History of Present illness Narrative [facility] [address] [place] [address] Patient: Kel Castillo Jr. Sex: male : 1955 Age: 69 y.o. PCP: SUSAN WATSON APRN-LEATHER SEASONER 03/10/2025 Kel Castillo JrBren is here for [...] disease Chronic kidney disease, stage 4 (severe) ([facility]) 09/19/2023 Chronic obstructive pulmonary disease, unspecified ([facility]) 03/11/2024 CKD (chronic kidney disease) stage 3 Closed nondisplaced fracture of greater tuberosity of left humerus with routine healing 09/19/2023 COPD (chronic obstructive pulmonary disease) ([facility]) Coronary artery disease Coronary artery disease involving ivanof bay coronary artery of ivanof bay heart without angina pectoris 09/19/2023 Depression Dyspnea and respiratory abnormalities 09/18/2013 66 pk/yr history of smoking. Quit in 1994, when diagnosed with NSCLC and treated with RULobectomy and XRT. Also has extensive coronary disease, with CABG. Sees cardiology at [facility]. Anxiety, HTN, CKD IIIb. PCP started albuterol [...] echocardiogram Hypertension Intermittent claudication 08/25/2012 Lung cancer ([facility]) MCI (mild cognitive impairment) 04/12/2022 Migraine 07/18/2012 [...] 02/19/2025 Performed by Abiodun Cherry MD at [facility] No Known Allergies History reviewed. No pertinent [...] Resource Strain: Low Risk (02/28/2025) Received from [facility] Overall Financial Resource Strain (CARDIA) Difficulty of Paying Living Expenses: Not very hard Food Insecurity: No Food Insecurity (03/10/2025) Hunger Screening Food Insecurity - Worry: Never True Food Insecurity - Inability: Never True Transportation Needs: No Transportation Needs (02/28/2025) Received from [facility] PRAPARE - Transportation Lack of Transportation (Medical): No Lack of Transportation (Non-Medical): No Physical Activity: Inactive (02/28/2025) Received from [facility] Exercise Vital Sign Days of Exercise per Week: 0 days Minutes of Exercise per Session: 0 min Stress: Stress Concern Present (02/28/2025) Received from [facility] [employer] [employer] - Occupational Stress Questionnaire Feeling of Stress : To some extent Social Connections: Socially Isolated (02/28/2025) Received from [facility] Social Connection and Isolation Panel [NHANES] Frequency of Communication with Friends and Family: More than three times a week Frequency of Social Gatherings with Friends and Family: Once a week Attends Hoahaoism Services: Never Active Member of Clubs or Organizations: No Attends Club or Organization Meetings: Never Marital Status: Interpersonal Safety: Not At Risk (02/28/2025) Received from [facility] Humiliation, Afraid, Rape, and Kick questionnaire Fear of Current or Ex-Partner: No Emotionally Abused: No Physically Abused: No Sexually Abused: No Housing Instability: Low Risk (02/28/2025) Received from [facility] Housing Stability Vital Sign Unable to [...] PA-C 03/10/25 1049 documented in this encounter [facility] 03-01-2025 History of Present illness Narrative [...] (65 Fe) MG tablet 1 tablet, Daily Zlqlztsnzzy-Azookdwmy-Lwudxe (Trelegy Ellipta) 100-62.5-25 MCG/ACT aerosol powder 1 [...] HISTORY Past Medical History: Diagnosis Date Alcoholism ([facility]) ( quit drinking 25 years ago) Anxiety and depression Bronchitis Chicken pox CKD (chronic kidney disease), symptom management only, stage 4 (severe) ([facility]) Claudication of calf muscles COPD (chronic obstructive pulmonary disease) ([facility]) Coronary artery disease Depression with anxiety GERD [...] Addressed This Visit Coronary artery disease involving ivanof bay coronary artery of ivanof bay heart without angina pectoris Established with [facility] Cardiology Current meds: asa, amlodipine, statin, [...] (HCC) Is prescribed trelegy inhaler Relevant Medications Cwsqjzncrhw-Azwbfainp-Snorgc (Trelegy Ellipta) 100-62.5-25 MCG/ACT aerosol powder Primary [...] prn Associated Problem(s): Coronary artery disease involving ivanof bay coronary artery of ivanof bay heart without angina pectoris Established with [facility] Cardiology Current meds: asa, amlodipine, statin, [...] raulito, b kelsy, documented in this encounter [facility] 03-01-2025 Instructions Susan Watson NP - 03/01/2025 1:40 PM EDT Please call dr amezcua's office to get an appt documented in this encounter [facility] 01-27-2025 History of Present illness Narrative [facility] [address] [place] [place] [address] Patient: Kel Castillo Jr. Sex: male : 1955 Age: 69 y.o. PCP: SUSAN WATSON, GERARDO-LEATHER SEASONER 01/27/2025 Kel Castillo Jr. is here for [...] kidney disease COPD (chronic obstructive pulmonary disease) ([facility]) Coronary artery disease Hypertension Neck pain History [...] Resource Strain: Medium Risk (07/22/2023) Received from [facility] Overall Financial Resource Strain (CARDIA) Difficulty of Paying Living Expenses: Somewhat hard Food Insecurity: No Food Insecurity (01/27/2025) Hunger Screening Food Insecurity - Worry: Never True Food Insecurity - Inability: Never True Transportation Needs: No Transportation Needs (07/22/2023) Received from [facility] PRAPARE - Transportation Lack of Transportation (Medical): No Lack of Transportation (Non-Medical): No Physical Activity: Inactive (07/22/2023) Received from [facility] Exercise Vital Sign Days of Exercise per Week: 0 days Minutes of Exercise per Session: 0 min Stress: Stress Concern Present (07/22/2023) Received from [facility] [employer] - Occupational Stress Questionnaire Feeling of Stress : Very much Social Connections: Moderately Isolated (07/22/2023) Received from [facility] Social Connection and Isolation Panel [NHANES] Frequency of Communication with Friends and Family: More than three times a week Frequency of Social Gatherings with Friends and Family: Twice a week Attends Hoahaoism Services: Never Active Member of Clubs or Organizations: No Attends Club or Organization Meetings: Never Marital Status: Interpersonal Safety: Unknown (10/03/2023) Received from [facility] [place] [facility] Fear of Current or Ex-Partner: Not on file Emotionally Abused: Not on file Physically Abused: Not on file Sexually Abused: Not on file Physically or Sexually Abused: Not on file Housing Instability: Low Risk (07/22/2023) Received from [facility] Housing Stability Vital Sign Unable to [...] PA-C 01/27/25 1115 [facility]25 Instructions Susan Anderson CNA - 01/27/2025 [...] nearest emergency room. [facility] History of Present illness Narrative Neck [...] (ANTARA) 43 mg, Oral, Daily with breakfast Ggeooyeuwvq-Yrlfcbdsz-Zgpahl (Trelegy Ellipta) 100-62.5-25 MCG/ACT aerosol powder 1 [...] HISTORY Past Medical History: Diagnosis Date Alcoholism ([facility]) ( quit drinking 25 years ago) Anxiety and depression ([facility]) Bronchitis Chicken pox CKD (chronic kidney disease), symptom management only, stage 4 (severe) ([facility]) Claudication of calf muscles ([facility] COPD (chronic obstructive pulmonary disease) ([facility]) Coronary artery disease ([facility]) Depression with anxiety GERD (gastroesophageal reflux disease) Heart disease High blood pressure ([facility]) High cholesterol ([facility]) History of medical problems Hernia History of migraine headaches History of psychiatric care Kidney disease Lung cancer ([facility]) JITENDRA (obstructive sleep apnea) Peripheral vascular disease ([facility]) Umbilical hernia URTI (infection of the upper [...] H/O: lung cancer EDITH (generalized anxiety disorder) (CMS/HCC) Current meds: wellbutrin, buspar, sertraline and olanzapine [...] testing Associated Problem(s): EDITH (generalized anxiety disorder) ([facility]) Current meds: wellbutrin, buspar, sertraline and olanzapine [...] Trial prednisone taper documented in this encounter [facility] 01-19-2025 Instructions Susan Watson NP - 01/19/2025 1:00 PM EDT Pain mgmt documented in this encounter [facility] 11-19-2024 History of Present illness Narrative [...] (ANTARA) 43 mg, Oral, Daily with breakfast Ylrbolcakiv-Jvnurnusv-Ijxmss (Trelegy Ellipta) 100-62.5-25 MCG/ACT aerosol powder 1 [...] HISTORY Past Medical History: Diagnosis Date Alcoholism ([facility]) ( quit drinking 25 years ago) Anxiety and depression ([facility]) Bronchitis Chicken pox CKD (chronic kidney disease), symptom management only, stage 4 (severe) ([facility]) Claudication of calf muscles ([facility]) COPD (chronic obstructive pulmonary disease) ([facility]) Coronary artery disease ([facility]) Depression with anxiety GERD (gastroesophageal reflux disease) Heart disease High blood pressure ([facility]) High cholesterol ([facility]) History of medical problems Hernia History of migraine headaches History of psychiatric care Kidney disease Lung cancer (CMS/HCC) JITENDRA (obstructive sleep apnea) Peripheral vascular disease ([facility]) Umbilical hernia URTI (infection of the upper [...] Therapy Chronic kidney disease, stage 4 (severe) ([facility]) Continue with Nephrology Check labs yearly and prn EDITH (generalized anxiety disorder) ([facility]) Current meds: wellbutrin, buspar, sertraline Pt's daughter is a [employer]ita [employer], I have given daughter present today options for addressing anxiety: Buspar TID, olanzapine at 2.5mg or quetiapine She will talk with sister and go from there Primary hypertension ([facility]) Please check blood pressure daily and record [...] tablet Associated Problem(s): EDITH (generalized anxiety disorder) ([facility]) Current meds: wellbutrin, buspar, sertraline Pt's daughter is a tita [employer], I have given daughter present today options for addressing anxiety: Buspar TID, olanzapine at 2.5mg or quetiapine She will talk with sister and go from there Associated Problem(s): Chronic kidney disease, stage 4 (severe) ([facility]) Continue with Nephrology Check labs yearly and prn Associated Problem(s): Gastroesophageal reflux disease without esophagitis Recommendations: freq small meals, nothing to eat or drink at least 2 hours prior to bed, limit caffeine, alcohol, as well as spicy foods Meds to limit or avoid if possible: NSAIDS Elevate HOB if possible Current meds: famotidine Associated Problem(s): Primary hypertension ([facility]) Please check blood pressure daily and record DASH diet Limit caffeine Take medication as directed Contact office if chest pain, pressure, dizziness, shortness of breath, swelling legs Recommend slow position changes Current meds; raulito, b kelsy, calcium channel kelsy, imdur Associated Problem(s): Atherosclerosis of arteries of extremities ([facility]) Asa, plavix, statin Associated Problem(s): Coronary artery disease involving ivanof bay coronary artery of ivanof bay heart without angina pectoris ([facility]CC) Established with [facility] Cardiology Current meds: asa, amlodipine, statin, plavix, imdur, raulito, b kelsy, and prn nitro Associated Problem(s): Chronic obstructive pulmonary disease, unspecified Is prescribed trelegy inhaler documented in this encounter [facility] 11-19-2024 Instructions Susan Watson NP - 11/19/2024 1:00 PM EDT Anxiety; we could try increase buspirone to 15mg three times daily Or consider adding olanzapine at 2.5mg at bed time ??low dose of quetiapine like 25mg at bedtime I will order PT and speech therapy at [facility] Neck: try stretching exercises, baclofen 10mg pill at bedtime as needed for muscle spasms documented in this encounter [facility] 10-27-2024 Evaluation note Diagnosis Onset Date [...] 19, 2025 4:22pm Hyperkalemia acute January 19, 2 025 4:22pm Hyperlipemia acute January 19 025 4:22pm Hypertensive chronic kidney disease with stage 1 through stage 4 chronic ki acute January 19, 2025 4:22pm [facility] Work Phone: [phone]) 932-375503-04-[facility] Chief Complaint: Patient [...] occluded right coronary artery. 2. Severe 3-vessel ivanof bay coronary artery disease. 3. Patent left internal [...] Laboratory Report FINAL IMPRESSIONS: 1. Severe 3-vessel ivanof bay coronary artery disease. 2. A 2/3 bypass grafts patent; the radial artery graft to the posterior descending artery is occluded. 3. Severe, heavily calcific lesion of the right common femoral artery; this is a new angiographic finding. Assessment: Coronary a (more content not included)...[facility] 10-12-2024 Instructions* Patient Instructions* Mandeep SofiaEbony rayo, - 10/12/2024 11:31 AM EST Please do physical therapy and speech therapy. Please follow-up with your sleep apnea doctor about a better mask as this can help memory. Follow-up in six months. He and his family may benefit from the following community resources: [facility] Agencies on Aging -- , https://aging.[place].gov/about-us/who-we-are/upnc-fcsxjrul-im-aging Visit your local Senior Center to participate in stimulating activities and socialize with others -https://www.[employer].org/lynx22_qnul_tnxmca_vdheyeb.htm He can use strategies to help optimize [...] for Neurodegenerative Delay (MIND) diet, is recommended. https://www.abhay.nih.gov/health/zgzt-ed-ze-know-ab jlt-uyia-pil-hxydvxkoel-zzzgmhvpxz-eeqjuey If he is to continue doing complex tasks such as financial aid on his own, his family members are encouraged to routinely review his work and assist as necessary. Re-evaluation in approximately 18-24 months (or as needed). [facility] NoteHNO ID: [id number] Author: EBONY TRENT DO Service: ? Author Type: Physician Type: Progress Notes Filed: 10/12/2024 14:47 Note Text: [facility] General Neurology Follow up/ Established patient visit Individuals who were included in, or assisted with the encounter were: Samir Castillo Ebony Black DO Chief Complaint/Issues: Samir Castillo is a 69 year old male seen in the [facility] for General Neurology for: Memory loss [...] AND Plan 10/12/2024 - General Neurology, Ebony Black, DO ASSESSMENT Mr. Jaramillo, is a 69 year old man with untreated sleep apnea here for follow-up of (more content not included)...[facility]03-03-2025 History of Present illness Narrative* Mandeep Black Amanda, - 10/12/2024 11:28 AM EST Images from the original note were not included. [facility] General Neurology Follow up/ Established patient visit Individuals who were included in, or assisted with the encounter were: Samir Mccarycatrachita Black DO Chief Complaint/Issues: Samir Castillo is a 69 year old male seen in the [facility] for General Neurology for: Memory loss [...] 1/2 TABLETS BY MOUTH EVERY DAY omega 5-zca-hhs-fish oil (FISH OIL) 100-160-1,000 mg cap Take [...] which included preparing to see the patient, deom-rg-acnp patient care, completing clinical documentation, obtaining and/or [...] 70 (Recommend sleep study) documented in [facility]25 NoteHNO ID: [id number] Author: SANDRA JAY MA Service: ? Author Type: Second Grade Teacher Type: Progress Notes Filed: 10/12/2024 14:47 Note [...] Sleep Apnea Probability Score: 70 (Recommend sleep study)[facility] History of Present illness Narrative* [...] no compliance problems. Hypertensive end-organ damage includes CAD/[place]. Heart Problem This is a chronic problem. [...] (ANTARA) 43 mg, Oral, Daily with breakfast Xzwguiekzzi-Nidcqczxh-Qjsegi (Trelegy Ellipta) 100-62.5-25 MCG/ACT aerosol powder 1 [...] HISTORY Past Medical History: Diagnosis Date Alcoholism ([facility]/HCC) ( quit drinking 25 years ago) Anxiety and depression ([facility]) Bronchitis Chicken pox CKD (chronic kidney disease), symptom management only, stage 4 (severe) ([facility]) Claudication of calf muscles ([facility]/HCC) COPD (chronic obstructive pulmonary disease) ([facility]CC) Coronary artery disease ([facility]) Depression with anxiety GERD (gastroesophageal reflux disease) Heart disease High blood pressure ([facility]) High cholesterol ([facility]) History of medical problems Hernia History of migraine headaches History of psychiatric care Kidney disease Lung cancer ([facility]/HCC) JITENDRA (obstructive sleep apnea) Peripheral vascular disease ([facility]CC) Umbilical hernia URTI (infection of the upper [...] and neuropsych testing Coronary artery disease involving ivanof bay coronary artery of ivanof bay heart without angina pectoris ([facility]) - Primary Current meds: plavix, amlodipine, statin, b kelsy, nitroglycerin prn No acute symptoms, cont with [facility] Cardiology Relevant Medications clopidogrel (Plavix) 75 MG tablet isosorbide mononitrate ER (Imdur) 60 MG 24 hr tablet metoprolol tartrate (Lopressor) 50 MG tablet Mixed hyperlipidemia ([facility]) On statin and fenofibrate Check labs yearly and prn dose changes Relevant Medications atorvastatin (Lipitor) 80 MG tablet fenofibrate micronized (Antara) 43 MG capsule Chronic kidney disease, stage 4 (severe) ([facility]) Continue with Nephrology Gastroesophageal reflux disease without esophagitis Recommendations: freq small meals, nothing to eat or drink at least 2 hours prior to bed, limit caffeine, alcohol, as well as spicy foods Meds to limit or avoid if possible: NSAIDS Elevate HOB if possible Current med: pepcid Relevant Medications famotidine (Pepcid) 20 MG tablet EDITH (generalized anxiety disorder) ([facility]) Current meds: wellbutrin XL, buspar, sertraline, and trazodone EDITH 7=4 Had recent neuropsych testing has fu appt in a few weeks Relevant Medications sertraline (Zoloft) 100 MG tablet traZODone (Desyrel) 100 MG tablet Chronic obstructive pulmonary disease, unspecified ([facility]) Current meds: albuterol, trelegy Cannot afford trelegy, but does help breathing #2 samples trelegy: 100/25, XM5N, exp 01/04 Recurrent major depressive disorder, in full remission ([facility]) Current med: wellbutrin, sertralin, and trazodone PHQ 9=9 Primary hypertension ([facility]) Please check blood pressure daily and record [...] MG tablet Other Visit Diagnoses Other hyperlipidemia (CMS/[facility]) Relevant Medications atorvastatin (Lipitor) 80 MG tablet fenofibrate micronized (Antara) 43 MG capsule Recurrent major 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) ([facility]) Relevant Medications buPROPion XL (Wellbutrin XL) 300 MG 24 hr tablet busPIRone (Buspar) 15 MG tablet sertraline (Zoloft) 100 MG tablet traZODone (Desyrel) 100 MG tablet * Susan Watson NP - 10/08/2024 7:12 AM ESTAssociated Problem(s): Recurrent major depressive disorder, in full remission ([facility]) Current med: wellbutrin, sertralin, and trazodone PHQ 9=9 * Susan Watson NP - 10/08/2024 7:11 AM ESTAssociated Problem(s): Mixed hyperlipidemia ([facility]) On statin and fenofibrate Check labs yearly and prn dose changes * Susan Watson NP - 10/08/2024 7:10 AM ESTAssociated Problem(s): EDITH (generalized anxiety disorder) ([facility]) Current meds: wellbutrin XL, buspar, sertraline, and [...] AM ESTAssociated Problem(s): Coronary artery disease involving ivanof bay coronary artery of ivanof bay heart without angina pectoris (CMS/HCC) Current meds: plavix, amlodipine, statin, b kelsy, nitroglycerin prn No acute symptoms, cont with [facility] Cardiology * Susan Watson NP - 10/08/2024 7:06 AM ESTAssociated Problem(s): Chronic obstructive pulmonary disease, unspecified (CMS/HCC) Current meds: albuterol, trelegy Cannot afford trelegy, but does help breathing #2 samples trelegy: 100/25, XM5N, exp 01/04 documented in this [facility]02-27-2025 Instructions* Patient Instructions* Susan Watson NP - 10/08/2024 1:40 PM EST No med dose changes documented in this [facility]01-28-2025 NoteHNO ID: [id number] Author: MISTY POLO, PhD Service: ? Author Type: Psychologist Type: Progress Notes Filed: 09/10/2024 16:35 Note Text: [facility] Department of Neurology Section of Neuropsychology Neuropsychological Evaluation Report CONFIDENTIAL Patient: Samir Castillo Date of : 1955 Referred by: Ebony Black MD (Neurology) Education: 10 Handedness: R Language(s): Gambian Date of Evaluation: 09/08/2024 Mr. 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 [place] non-verbal memory test, new learning was similarly [...] may benefit from the following community resources: [facility] Agencies on Aging -- , https://aging.[place].gov/about-us/who-we-are/fbyi-mbpfnifr-xg-aging Visit your local Senior Center to participate in stimulating activities and socialize with others -https://www.careWorld Energy Labsio.org/cepn27_prve_ptgdva_endlskd.htm He can use strategies to help optimize [...] for Neurodegenerative Delay (MIND) diet, is recommended. https://www.abhay.nih.gov/health/viyo-wc-wl-know-ab yqk-vdpi-rhi-itebxpbjkx-wcwdyjlnoo-tjavxqp If he is to continue doing complex tasks such as financial aid on his own, his family members are encouraged to routinely review his work and assist as necessary. Re-evaluation in approximately 18-24 months (or as needed). These results have not been reviewed with the patient, but he will be provided access to this note via [employer]. It has been a pleasure to participate in his care. Please feel free to contact me if you have any questions regarding this report or my recommendations. Misty Polo, PhD, ABPP-CN Board Certified Clinical Neuropsychologist [facility] The purpose of this evaluation was explained [...] = 2 hours Neuropsychological test administration/scoring by sample maker = 4 hours TESTS ADMINISTERED: Waite Anxiety Inventory, Waite Depression Inventory-2, Mas Judgment of Line Orientation (Form H), [place] Naming Test-2, Brief Visuospatial Memory Test- Revised (Form 2), Clinical Interview, Jessie Chowdhury Executive Function System (Color-Word Interference), Castro Verbal Learning Test-Revised (Form 2), Language Screen, Performance Validity Testing, Gregory Osterrieth Complex Figure Test (Miles System, copy), Clarence Making Test (Parts A & B), Verbal Fluency (CFL, Animals/Fruits/Vegetables), Veena Adult Intelligence Scale-IV (Digit Span, Coding, Matrix Reasoning), Veena Memory Scale-IV (Logical Memory), [place] Card Sorting Test - 128 documented in this encounterSt. [facility] History of Present illness Narrative* Jayy Coronado [...] 06/22/2024 11:33 AM ESTAssociated Problem(s): Primary hypertension ([facility]/HCC) Currently taking amlodipine Imdur Metoprolol Checks BP [...] Addressed This Visit Coronary artery disease involving ivanof bay coronary artery of ivanof bay heart without angina pectoris ([facility]/HCC) Relevant Medications nitroglycerin (Nitrostat) 0.4 MG SL tablet Other hyperlipidemia ([facility]) Currently taking Atorvastatin 80mg Denies any myalgias. Continue current regimen. CKD (chronic kidney disease) stage 4, GFR 15-29 ml/min ([facility]) Following with Nephrology. Avoid nephrotoxic agents. Continue to monitor. Primary hypertension ([facility]) - Primary Currently taking amlodipine Imdur Metoprolol [...] referral to Physical Therapy documented in this encounterTwo [facility] Psychiatric [id number] Instructions* Patient Instructions* Jayy Coronado NP - [...] TO THE EMERGENCY ROOM!!! documented in this encounterTwo Rivers Psychiatric [id number] History of Present illness Narrative* Claire Vilchis [...] PATIENT PRESENTS WITH AN IMPLANTABLE OR ATTACHED MACHINE STOPPAGE FREQUENCY CHECKER: No RADIOLOGY DEPARTMENT: CT; Exam(s) Completed: Brain PERIPHERAL IV DATA: Not applicable SIGNED BY: KORY Bolivar May 12, 2024 8:35 AM documented in this encounterSt. Anthony'S Hospital10-01-2024 NoteHNO ID: [id number] Author: CLAIRE VILCHIS CT Service: ? Author Type: Barrel Washer Machine Type: Progress Notes Filed: 05/12/2024 08:35 Note [...] PATIENT PRESENTS WITH AN IMPLANTABLE OR ATTACHED MACHINE STOPPAGE FREQUENCY CHECKER: No RADIOLOGY DEPARTMENT: CT; Exam(s) Completed: Brain PERIPHERAL IV DATA: Not applicable SIGNED BY: KORY Bolivar May 12, 2024 8:35 [facility]09-23-2024 Instructions* Patient Instructions* Ebony Trent DO - 05/04/2024 10:[address] scan of brain Physical therapy Follow-up after neuropsych Please do not climb ladders or do other activities for high fall risk. documented in this encounterSt. Anthony'S Hospital09-23-2024 History of Present illness Narrative* Ebony Trent DO - 05/04/2024 9:30 AM EDT Images from the original note were not included. [facility] Follow up/ Established patient visit Individuals who were included in, or assisted with the encounter were: Samir Castillo Ebony Black DO Chief Complaint/Issues: Samir Castillo is a 69 year old male seen in the [facility] for: Memory loss [...] over medications. 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 MOCA December 2021 [...] 1/2 TABLETS BY MOUTH EVERY DAY omega 8-sjw-lts-fish oil (FISH OIL) 100-160-1,000 mg cap Take [...] which included preparing to see the patient, vytx-qk-qwqv patient care, completing clinical documentation, obtaining and/or [...] population and warrants attention documented in this encounterSt. Anthony'S Hospital09-23-2024 NoteHNO ID: [id number] Author: EBONY TRENT DO Service: ? Author Type: Physician Type: Progress Notes Filed: 05/04/2024 22:17 Note Text: [facility] Follow up/ Established patient visit Individuals who were included in, or assisted with the encounter were: Samir Castillo Ebony Black DO Chief Complaint/Issues: Samir Castillo is a 69 year old male seen in the [facility] for: Memory loss [...] over medications. 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 MOCA December 2021 [...] 50 mg tablet,extended release (more content not included)...[facility]02-[facility] History of Present illness Narrative* Shaikh Cornelio MD - 09/19/2023 5:35 PM ESTAssociated Problem(s): EDITH (generalized anxiety disorder) ([facility]) Improved now. C/w current regimen. * Shaikh Cornelio MD - 09/19/2023 5:35 PM ESTAssociated Problem(s): Other hyperlipidemia (CMS/HCC) Check Lipid panel. * Shaikh Cornelio MD - 09/19/2023 5:35 PM ESTAssociated Problem(s): Recurrent major 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) ([facility]) Symptoms improved and well controlled since Zoloft [...] kidney disease) stage 4, GFR 15-29 ml/min ([facility]) Has an appointment with Nephrology. Avoid NSAIDS. C/w current regimen. * Shaikh Cornelio MD - 09/19/2023 5:32 PM ESTAssociated Problem(s): Coronary artery disease involving ivanof bay coronary artery of ivanof bay heart without angina pectoris ([facility]) S/p CABG. On ASA, BB, Imdur, plavix, statin Denies CP, SOB, palpitations. Following [facility] cardiology. * Shaikh Cornelio MD - [...] in the morning. Take with meals. [DISCONTINUED] Eepgxzpepmt-Sbuunjhlt-Rhelck (Trelegy Ellipta) 100-62.5-25 MCG/ACT aerosol powder Inhale [...] Recurrent major 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) ([facility]) Symptoms improved and well controlled since Zoloft [...] Comprehensive metabolic panel Coronary artery disease involving ivanof bay coronary artery of ivanof bay heart without angina pectoris ([facility]) S/p CABG. On ASA, BB, Imdur, plavix, statin Denies CP, SOB, palpitations. Following [facility] cardiology. Relevant Medications aspirin 81 MG EC tablet isosorbide mononitrate ER (Imdur) 60 MG 24 hr tablet metoprolol tartrate (Lopressor) 50 MG tablet clopidogrel (Plavix) 75 MG tablet Other Relevant Orders CBC and differential Comprehensive metabolic panel Other hyperlipidemia (CMS/[facility]) Check Lipid panel. Relevant Medications atorvastatin (Lipitor) 80 MG tablet fenofibrate micronized (Antara) 43 MG capsule Other Relevant Orders Lipid panel CKD (chronic kidney disease) stage 4, GFR 15-29 ml/min ([facility]) Has an appointment with Nephrology. Avoid NSAIDS. C/w current regimen. Relevant Orders CBC and differential Comprehensive metabolic panel Protein, urine, random Creatinine, urine, random Gastroesophageal reflux disease without esophagitis Relevant Medications famotidine (Pepcid) 20 MG tablet EDITH (generalized anxiety disorder) ([facility]) Improved now. C/w current regimen. Relevant Medications sertraline (Zoloft) 100 MG tablet traZODone (Desyrel) 100 MG tablet Traumatic complete tear of left rotator cuff - Primary Noted on MRI - following Orthopedics. Patient has a follow up appointment next week and it appears that he will likely need surgery for it. Other Visit Diagnoses Primary hypertension ([facility]) Relevant Medications amLODIPine (Norvasc) 5 MG tablet isosorbide mononitrate ER (Imdur) 60 MG 24 hr tablet metoprolol tartrate (Lopressor) 50 MG tablet Other Relevant Orders CBC and differential Comprehensive metabolic panel Chronic obstructive pulmonary disease, unspecified COPD type ([facility]) Relevant Medications Vbseyspukrr-Gpimutjda-Vdyhbh (Trelegy Ellipta) 100-62.5-25 MCG/ACT aerosol powder No follow-ups on file. documented in this encounterTwo Rivers Psychiatric [id number] Instructions* Patient Instructions* Ebony Kaufman DO - 08/15/2022 4:17 PM EST Please work with your doctor on the sleep apnea and psychiatrist for depression. Follow-up in 6 months. documented in this encounterSt. Anthony'S Hospital01-04-2023 History of Present illness Narrative* Ebony Kaufman DO - 08/15/2022 3:47 PM EST Images from the original note were not included. [facility] Follow up/ Established patient visit Individuals who were included in, or assisted with the encounter were: Samir Castillo Ebony Kaufman, Chief Complaint/Issues: Samir Castillo is a 67 year old male seen in the [facility] for: Follow-up Most [...] the same, maybe a bit worse around [place] given the anniversary of his daughter's was [...] AND 1/2 TABLETS BY MOUTH EVERY DAY Lvjhsrttducre-Hoyovbkf-Lqomkw (MULTIVITAMIN 50 PLUS) tab Take 1 tablet by mouth once daily. omega 1-ung-slt-fish oil (FISH OIL) 100-160-1,000 mg cap Take [...] which included preparing to see the patient, gsjw-sg-ngqf patient care, completing clinical documentation, obtaining and/or reviewing separately obtained history, performing a medically appropriate examination, counseling and educating the pat ient/family/caregiver, and ordering medications, tests, or procedures. Ebony Kaufman DO documented in this encounterSt. Anthony'S Hospital11-29-2022 Evaluation note* Encounter Date Diagnosis Assessment Notes [...] mmol/L. 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 documented in this encounterSt. Anthony'S Hospital08-30-2022 History of Present illness Narrative* Ebony Kaufman DO - 04/10/2022 10:11 AM EDT Images from the original note were not included. [facility] New Patient Evaluation Consulting Provider: Jessie Bright [id number] [facility] [address] Individuals who were included in, or assisted with the encounter were: Samir Castillo Ebony Kaufman DO Chief Complaint/Issues: Samir Castillo is a 66 year old male seen in the [facility] for: Memory HPI: [...] notices problems with both short term and residential memory Language: yes, word finding problems. Knows [...] AND 1/2 TABLETS BY MOUTH EVERY DAY Wiwegmjtpsesh-Zricnygp-Eviycp (MULTIVITAMIN 50 PLUS) tab Take 1 tablet by mouth once daily. omega 1-gxl-lgz-fish oil (FISH OIL) 100-160-1,000 mg cap Take [...] which included preparing to see the patient, qiqa-lg-wlip patient care, completing clinical documentation, obtaining and/or reviewing separately obtained history, performing a medically appropriate examination, and counseling and educating the patient/family/caregiver. Ebony Kaufman DO documented in this encounterSt. Anthony'S Hospital08-02-2022 Evaluation note* Encounter Date Diagnosis Assessment Notes Treatment Notes Treatment Clinical Notes Mar, Depression, major, recurrent, moderate (ICD-10 - F33.1) [facility] Other 07-25-2022 Evaluation note* Encounter Date Diagnosis Assessment Notes Treatment Notes Treatment Clinical Notes Feb, Depression, major, recurrent, moderate (ICD-10 - F33.1) [facility] Other 07-19-2022 Evaluation note* Encounter Date Diagnosis [...] Sleep apnea, unspecified type (ICD-10 - G47.30) [facility] Other 07-01-2022 Miscellaneous Notes* Telephone Encounter - [...] Dr. Roche Message text documented in this encounterSt. Anthony'S Hospital07-01-2022 History of Present illness Narrative* Brayan Trent CRT - 02/09/2022 10:41 AM EDT PULM FUNCTION SMARTBLOCK: Provider: Prince Aby MD Spirometry w/BD: 1 System: MC9 - [id number] documented in this encounterSt. Anthony'S Hospital06-30-2022 History of Present illness Narrative* RT Ed(R) [...] 08, 2022 4:21 PM documented in this encounterSt. Anthony'S Hospital06-20-2022 Evaluation note* Encounter Date Diagnosis Assessment [...] relief. Also reports that he saw his individualized education plan aide recently who does not think that his shortness of breath is related to his heart. He did have an appointment with [place] pulmonology but has since decided to see pulmonology in [place]. Given his PFT and CT results I [...] with Dr. Hurtado at their upcoming appointment. [facility] Other 05-27-2022 Evaluation note* Encounter Date Diagnosis Assessment Notes Treatment Notes Treatment Clinical Notes December, Obstructive lung disease (ICD-10 - J44.9) December, Pulmonary nodule (ICD-10 - R91.1) [facility] Other 05-23-2022 Evaluation note* Encounter Date Diagnosis Assessment Notes Treatment Notes Treatment Clinical Notes December, Shortness of breath (ICD-10 - R06.02) [facility] Other 05-17-2022 Evaluation note* Encounter Date Diagnosis [...] next month or so we will recheck. [facility] Other 05-13-2022 History of Present illness Narrative* Jessie Bright MD - 12/22/2021 8:41 AM EDT Images from the original note were not included. [facility] General Neurology New Patient Evaluation Consulting Provider: SELF Individuals who were included in, or assisted with the encounter were: Samir Jose Bright MD Chief Complaint/Issues: Samir Castillo is a 66 year old male seen in the [facility] for: 1. Memory [...] notices problems with both short term and residential memory Language: yes, word finding problems. Knows [...] AND 1/2 TABLETS BY MOUTH EVERY DAY Njyjwsjqmrtrr-Splshesy-Fwebto (MULTIVITAMIN 50 PLUS) tab Take 1 tablet by mouth once daily. omega 0-mwh-box-fish oil (FISH OIL) 100-160-1,000 mg cap Take [...] which included preparing to see the patient, ammm-tz-jwlq patient care, completing clinical documentation and performing a medically appropriate examination. Jessie Bright MD documented in this encounterSt. Anthony'S Hospital05-09-2022 Evaluation note* Encounter Date Diagnosis Assessment Notes Treatment Notes Treatment Clinical Notes December, Depression, major, recurrent, moderate (ICD-10 - F33.1) [place] [employer] Other 10-12-2021 Evaluation note* Encounter Date Diagnosis [...] metoprolol. He follow-up with Dr. Rubio, his individualized education plan aide in [place]. He stated that his heart looks fine. [...] at home also runs between 140-150 systolic. [place] systolic blood pressure at home should be [...] his PCP Dr. Arellano for lipid profile. 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)- Primary Other persistent mental disorders due to conditions classified elsewhere Cognitive impairment, mild, so stated Mild cognitive impairment, so stated Depression, unspecified depression type documented in this encounter [facility] noteNo InformationNortBrooke Glen [facility]al [facility] [employer] Other Evaluation noteNohawthorn [facility] [employer] Other Evaluation note* Diagnosis Cognitive impairment, mild, so stated- Primary Mild cognitive impairment, so stated [facility] Shortness of breath- Primary [facility] Diagnosis Cognitive impairment, mild, so stated Mild cognitive impairment, so stated 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) Other persistent mental disorders due to conditions classified elsewhere Depression, unspecified depression type documented in this encounter [facility]* Diagnosis Shortness of breath documented [facility] note* Diagnosis Recurrent major 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)- Primary Major depressive disorder, recurrent episode, in partial or unspecified remission MCI (mild cognitive impairment) Mild cognitive impairment, so stated [facility]No assessment information available[facility] Work Phone: Evaluation note* Diagnosis MCI (mild cognitive impairment)- Primary Mild cognitive impairment, so stated documented in this encounter [facility] noteNort [employer] Other Evaluation note* Diagnosis Traumatic complete tear of left rotator cuff, subsequent encounter- Primary Recurrent major 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) ([facility]/HCC) Major depressive disorder, recurrent episode, in partial or unspecified remission Other hyperlipidemia ([facility]/HCC) EDITH (generalized anxiety disorder) ([facility]/HCC) Generalized anxiety disorder CKD (chronic kidney disease) stage 4, GFR 15-29 ml/min (CMS/HCC) Chronic kidney disease, Stage IV (severe) Gastroesophageal reflux disease without esophagitis Esophageal reflux Coronary artery disease involving [place] coronary artery of [place] heart without angina pectoris (CMS/HCC) Primary hypertension ([facility]/HCC) Unspecified essential hypertension Chronic obstructive pulmonary disease, unspecified COPD type ([facility]) [facility] Diagnosis Onset Date Resolution Status Anemia acute CAD (coronary artery disease) of artery bypass graft acute Chronic kidney disease, stage 3b acute Hyperkalemia acute Hyperlipemia acute [id number] [facility] Work Phone: Evaluation note* Diagnosis Dyspnea and respiratory abnormalities- Primary Other dyspnea and respiratory abnormality Centrilobular emphysema (HCC) Other emphysema Class 1 obesity due to excess calories with serious comorbidity and body mass index (BMI) of 32.0 to 32.9 in adult Sleep-disordered breathing Other sleep disturbances Memory loss- Primary Abnormality of gait [facility] Dyspnea and respiratory abnormalities- Primary Other dyspnea and respiratory abnormality Centrilobular emphysema (HCC) Other emphysema Class 1 obesity due to excess calories with serious comorbidity and body mass index (BMI) of 32.0 to 32.9 in adult Sleep-disordered breathing Other sleep disturbances Memory loss [facility] Diagnosis Traumatic complete tear of left rotator cuff, subsequent encounter- Primary Recurrent major 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) ([facility]/HCC) Major depressive disorder, recurrent episode, in partial or unspecified remission Other hyperlipidemia (CMS/HCC) EDITH (generalized anxiety disorder) ([facility]/HCC) Generalized anxiety disorder CKD (chronic kidney disease) stage 4, GFR 15-29 ml/min ([facility]/HCC) Chronic kidney disease, Stage IV (severe) Gastroesophageal reflux disease without esophagitis Esophageal reflux Coronary artery disease involving [place] coronary artery of [place] heart without angina pectoris ([facility]) Primary hypertension ([facility]) Unspecified essential hypertension Chronic obstructive pulmonary disease, unspecified COPD type ([facility]) Chronic obstructive pulmonary disease, unspecified COPD type ([facility])- Primary Coronary artery disease involving [place] coronary artery of [place] heart without angina pectoris ([facility]/HCC) CKD (chronic kidney disease) stage 4, GFR 15-29 ml/min ([facility]/HCC) Chronic kidney disease, Stage IV (severe) Gastroesophageal reflux disease without esophagitis Esophageal reflux Recurrent major depressive disorder, in full remission ([facility]/HCC) Other hyperlipidemia (CMS/HCC) EDITH (generalized anxiety disorder) ([facility]/HCC) Generalized anxiety disorder Recurrent major 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) ([facility]) Major depressive disorder, recurrent episode, in partial or unspecified remission Primary hypertension ([facility]/HCC) Unspecified essential hypertension Primary hypertension ([facility]/HCC)- Primary Unspecified essential hypertension Other hyperlipidemia ([facility]/HCC) Coronary artery disease involving [place] coronary artery of [place] heart without angina pectoris ([facility]/HCC) Frequent falls Functional gait abnormality CKD (chronic kidney disease) stage 4, GFR 15-29 ml/min ([facility]/HCC) Chronic kidney disease, Stage IV (severe) [facility] Diagnosis Traumatic complete tear of left rotator cuff, subsequent encounter- Primary Recurrent major 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) ([facility]) Major depressive disorder, recurrent episode, in partial or unspecified remission Other hyperlipidemia (CMS/HCC) EDITH (generalized anxiety disorder) ([facility]) Generalized anxiety disorder CKD (chronic kidney disease) stage 4, GFR 15-29 ml/min ([facility]) Chronic kidney disease, Stage IV (severe) Gastroesophageal reflux disease without esophagitis Esophageal reflux Coronary artery disease involving [place] coronary artery of [place] heart without angina pectoris ([facility]) Primary hypertension ([facility]) Unspecified essential hypertension Chronic obstructive pulmonary disease, unspecified COPD type ([facility]) Chronic obstructive pulmonary disease, unspecified COPD type ([facility])- Primary Coronary artery disease involving [place] coronary artery of [place] heart without angina pectoris ([facility]) CKD (chronic kidney disease) stage 4, GFR 15-29 ml/min ([facility]) Chronic kidney disease, Stage IV (severe) Gastroesophageal reflux disease without esophagitis Esophageal reflux Recurrent major depressive disorder, in full remission ([facility]) Other hyperlipidemia ([facility]) EDITH (generalized anxiety disorder) ([facility]) Generalized anxiety disorder Recurrent major 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) ([facility]) Major depressive disorder, recurrent episode, in partial or unspecified remission Primary hypertension ([facility]) Unspecified essential hypertension Primary hypertension ([facility])- Primary Unspecified essential hypertension Other hyperlipidemia ([facility]) Coronary artery disease involving [place] coronary artery of [place] heart without angina pectoris ([facility]) Frequent falls Functional gait abnormality CKD (chronic kidney disease) stage 4, GFR 15-29 ml/min ([facility]) Chronic kidney disease, Stage IV (severe) Recurrent major 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) ([facility]) Major depressive disorder, recurrent episode, in partial or unspecified remission documented in this encounter [facility]* Diagnosis Gastroesophageal reflux disease without esophagitis Esophageal reflux Recurrent major 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) ([facility]) Major depressive disorder, recurrent episode, in partial or unspecified remission documented in this encounter [facility] HealthcareEvaluation note* Diagnosis Dyspnea and respiratory abnormalities- [...] type, unspecified whether angina present, unspecified whether [place] or transplanted heart Complaints of memory disturbance Memory loss [facility] this [facility]* Diagnosis Traumatic complete tear of left rotator cuff, subsequent encounter- Primary Recurrent major 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) ([facility]) Major depressive disorder, recurrent episode, in partial or unspecified remission Other hyperlipidemia ([facility]) EDITH (generalized anxiety disorder) ([facility]) Generalized anxiety disorder CKD (chronic kidney disease) stage 4, GFR 15-29 ml/min ([facility]) Chronic kidney disease, Stage IV (severe) Gastroesophageal reflux disease without esophagitis Esophageal reflux Coronary artery disease involving [place] coronary artery of [place] heart without angina pectoris ([facility]) Primary hypertension ([facility]) Unspecified essential hypertension Chronic obstructive pulmonary disease, unspecified COPD type ([facility]) Chronic obstructive pulmonary disease, unspecified COPD type ([facility])- Primary Coronary artery disease involving [place] coronary artery of [place] heart without angina pectoris ([facility]) CKD (chronic kidney disease) stage 4, GFR 15-29 ml/min ([facility]) Chronic kidney disease, Stage IV (severe) Gastroesophageal reflux disease without esophagitis Esophageal reflux Recurrent major depressive disorder, in full remission ([facility]) Other hyperlipidemia ([facility]) EDITH (generalized anxiety disorder) ([facility]) Generalized anxiety disorder Recurrent major 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) ([facility]) Major depressive disorder, recurrent episode, in partial or unspecified remission Primary hypertension ([facility]) Unspecified essential hypertension Primary hypertension ([facility])- Primary Unspecified essential hypertension Other hyperlipidemia ([facility]) Coronary artery disease involving [place] coronary artery of [place] heart without angina pectoris ([facility]) Frequent falls Functional gait abnormality CKD (chronic kidney disease) stage 4, GFR 15-29 ml/min ([facility]) Chronic kidney disease, Stage IV (severe) Primary hypertension ([facility])- Primary Unspecified essential hypertension Chronic obstructive pulmonary disease, unspecified COPD type ([facility]) Chronic kidney disease, stage 4 (severe) ([facility]) Coronary artery disease involving [place] coronary artery of [place] heart without angina pectoris ([facility]) Gastroesophageal reflux disease without esophagitis Esophageal reflux EDITH (generalized anxiety disorder) ([facility]) Generalized anxiety disorder Recurrent major depressive disorder, in full remission ([facility]/HCC) Mixed hyperlipidemia ([facility]/HCC) Mixed hyperlipidemia MCI (mild cognitive impairment) Mild cognitive impairment, so stated Other hyperlipidemia (CMS/[facility]) Recurrent major 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) ([facility]) Major depressive disorder, recurrent episode, in partial or unspecified remission [facility] Diagnosis Dyspnea and respiratory abnormalities- Primary Other dyspnea and respiratory abnormality Centrilobular emphysema (HCC) Other emphysema Class 1 obesity due to excess calories with serious comorbidity and body mass index (BMI) of 32.0 to 32.9 in adult Sleep-disordered breathing Other sleep disturbances Gait abnormality- Primary Abnormality of gait Memory loss Neck pain Cervicalgia [facility] Diagnosis Onset Date Resolution Status Admit [...] ki acute October 27, 2 025 3:58pm [facility] Work Phone: Evaluation note* Diagnosis Traumatic complete tear of left rotator cuff, subsequent encounter- Primary Recurrent major 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) ([facility]) Major depressive disorder, recurrent episode, in partial or unspecified remission Other hyperlipidemia EDITH (generalized anxiety disorder) ([facility]) Generalized anxiety disorder CKD (chronic kidney disease) stage 4, GFR 15-29 ml/min ([facility]/HCC) Chronic kidney disease, Stage IV (severe) Gastroesophageal reflux disease without esophagitis Esophageal reflux Coronary artery disease involving [place] coronary artery of [place] heart without angina pectoris ([facility]) Primary hypertension ([facility]) Unspecified essential hypertension Chronic obstructive pulmonary disease, unspecified COPD type ([facility]) Chronic obstructive pulmonary disease, unspecified COPD type ([facility])- Primary Coronary artery disease involving [place] coronary artery of [place] heart without angina pectoris ([facility]) CKD (chronic kidney disease) stage 4, GFR 15-29 ml/min ([facility]/HCC) Chronic kidney disease, Stage IV (severe) Gastroesophageal reflux disease without esophagitis Esophageal reflux Recurrent major depressive disorder, in full remission ([facility]) Other hyperlipidemia EDITH (generalized anxiety disorder) ([facility]) Generalized anxiety disorder Recurrent major 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) ([facility]) Major depressive disorder, recurrent episode, in partial or unspecified remission Primary hypertension ([facility] Unspecified essential hypertension Primary hypertension ([facility])- Primary Unspecified essential hypertension Other hyperlipidemia Coronary artery disease involving [place] coronary artery of [place] heart without angina pectoris ([facility]) Frequent falls Functional gait abnormality CKD (chronic kidney disease) stage 4, GFR 15-29 ml/min ([facility]) Chronic kidney disease, Stage IV (severe) Primary hypertension ([facility])- Primary Unspecified essential hypertension Chronic obstructive pulmonary disease, unspecified COPD type ([facility]) Chronic kidney disease, stage 4 (severe) ([facility]) Coronary artery disease involving [place] coronary artery of [place] heart without angina pectoris ([facility]) Gastroesophageal reflux disease without esophagitis Esophageal reflux EDITH (generalized anxiety disorder) ([facility]) Generalized anxiety disorder Recurrent major depressive disorder, in full remission ([facility]) Mixed hyperlipidemia ([facility]) Mixed hyperlipidemia MCI (mild cognitive impairment) Mild cognitive impairment, so stated Other hyperlipidemia Recurrent major 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) ([facility]) Major depressive disorder, recurrent episode, in partial or unspecified remission Other hyperlipidemia EDITH (generalized anxiety disorder) ([facility]) Generalized anxiety disorder Recurrent major 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) ([facility]) Major depressive disorder, recurrent episode, in partial or unspecified remission documented [facility] encounter [facility]* Diagnosis Traumatic complete tear of left rotator cuff, subsequent encounter- Primary Recurrent major 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) ([facility]) Major depressive disorder, recurrent episode, in partial or unspecified remission Other hyperlipidemia EDITH (generalized anxiety disorder) ([facility]) Generalized anxiety disorder CKD (chronic kidney disease) stage 4, GFR 15-29 ml/min ([facility]) Chronic kidney disease, Stage IV (severe) Gastroesophageal reflux disease without esophagitis Esophageal reflux Coronary artery disease involving [place] coronary artery of [place] heart without angina pectoris ([facility]) Primary hypertension ([facility]) Unspecified essential hypertension Chronic obstructive pulmonary disease, unspecified COPD type ([facility]) Chronic obstructive pulmonary disease, unspecified COPD type ([facility])- Primary Coronary artery disease involving [place] coronary artery of [place] heart without angina pectoris ([facility]) CKD (chronic kidney disease) stage 4, GFR 15-29 ml/min ([facility]) Chronic kidney disease, Stage IV (severe) Gastroesophageal reflux disease without esophagitis Esophageal reflux Recurrent major depressive disorder, in full remission ([facility]) Other hyperlipidemia EDITH (generalized anxiety disorder) ([facility]) Generalized anxiety disorder Recurrent major 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) ([facility]) Major depressive disorder, recurrent episode, in partial or unspecified remission Primary hypertension ([facility] Unspecified essential hypertension Primary hypertension ([facility])- Primary Unspecified essential hypertension Other hyperlipidemia Coronary artery disease involving [place] coronary artery of [place] heart without angina pectoris ([facility]) Frequent falls Functional gait abnormality CKD (chronic kidney disease) stage 4, GFR 15-29 ml/min ([facility]) Chronic kidney disease, Stage IV (severe) Primary hypertension ([facility])- Primary Unspecified essential hypertension Chronic obstructive pulmonary disease, unspecified COPD type ([facility]) Chronic kidney disease, stage 4 (severe) ([facility]) Coronary artery disease involving [place] coronary artery of [place] heart without angina pectoris ([facility]) Gastroesophageal reflux disease without esophagitis Esophageal reflux EDITH (generalized anxiety disorder) ([facility]) Generalized anxiety disorder Recurrent major depressive disorder, in full remission ([facility] [facility]) Mixed hyperlipidemia ([facility]) Mixed hyperlipidemia MCI (mild cognitive impairment) Mild cognitive impairment, so stated Other hyperlipidemia Recurrent major 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) ([facility]) Major depressive disorder, recurrent episode, in partial or unspecified remission Primary hypertension ([facility]) Unspecified essential hypertension Other hyperlipidemia Recurrent major 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) ([facility]) Major depressive disorder, recurrent episode, in partial or unspecified remission Coronary artery disease involving [place] coronary artery of [place] heart without angina pectoris ([facility]) Gastroesophageal reflux disease without esophagitis Esophageal reflux EDITH (generalized anxiety disorder) ([facility]) Generalized anxiety disorder documented in this encounter [facility]* Diagnosis Traumatic complete tear of left rotator cuff, subsequent encounter- Primary Recurrent major 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) ([facility]) Major depressive disorder, recurrent episode, in partial or unspecified remission Other hyperlipidemia EDITH (generalized anxiety disorder) ([facility]) Generalized anxiety disorder CKD (chronic kidney disease) stage 4, GFR 15-29 ml/min ([facility]) Chronic kidney disease, Stage IV (severe) Gastroesophageal reflux disease without esophagitis Esophageal reflux Coronary artery disease involving [place] coronary artery of [place] heart without angina pectoris ([facility]) Primary hypertension ([facility]) Unspecified essential hypertension Chronic obstructive pulmonary disease, unspecified COPD type ([facility]) Chronic obstructive pulmonary disease, unspecified COPD type ([facility])- Primary Coronary artery disease involving [place] coronary artery of [place] heart without angina pectoris ([facility]) CKD (chronic kidney disease) stage 4, GFR 15-29 ml/min ([facility]) Chronic kidney disease, Stage IV (severe) Gastroesophageal reflux disease without esophagitis Esophageal reflux Recurrent major depressive disorder, in full remission ([facility]) Other hyperlipidemia EDITH (generalized anxiety disorder) ([facility] Generalized anxiety disorder Recurrent major 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) ([facility]) Major depressive disorder, recurrent episode, in partial or unspecified remission Primary hypertension ([facility]) Unspecified essential hypertension Primary hypertension ([facility])- Primary Unspecified essential hypertension Other hyperlipidemia Coronary artery disease involving [place] coronary artery of [place] heart without angina pectoris ([facility]) Frequent falls Functional gait abnormality CKD (chronic kidney disease) stage 4, GFR 15-29 ml/min ([facility]) Chronic kidney disease, Stage IV (severe) Primary hypertension ([facility])- Primary Unspecified essential hypertension Chronic obstructive pulmonary disease, unspecified COPD type ([facility]) Chronic kidney disease, stage 4 (severe) ([facility]) Coronary artery disease involving [place] coronary artery of [place] heart without angina pectoris ([facility] Gastroesophageal reflux disease without esophagitis Esophageal reflux EDITH (generalized anxiety disorder) ([facility]) Generalized anxiety disorder Recurrent major depressive disorder, in full remission ([facility]) Mixed hyperlipidemia ([facility]) Mixed hyperlipidemia MCI (mild cognitive impairment) Mild cognitive impairment, so stated Other hyperlipidemia Recurrent major 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) ([facility]) Major depressive disorder, recurrent episode, in partial or unspecified remission Neck pain- Primary Cervicalgia Primary hypertension ([facility]) Unspecified essential hypertension Chronic kidney disease, stage 4 (severe) ([facility]) EDITH (generalized anxiety disorder) ([facility]) Generalized anxiety disorder Functional gait abnormality MCI (mild cognitive impairment) Mild cognitive impairment, so stated documented in this encounter [facility]* Diagnosis Traumatic complete tear of left rotator cuff, subsequent encounter- Primary Recurrent major 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) ([facility]) Major depressive disorder, recurrent episode, in partial or unspecified remission Other hyperlipidemia EDITH (generalized anxiety disorder) ([facility]) Generalized anxiety disorder CKD (chronic kidney disease) stage 4, GFR 15-29 ml/min ([facility]) Chronic kidney disease, Stage IV (severe) Gastroesophageal reflux disease without esophagitis Esophageal reflux Coronary artery disease involving [place] coronary artery of [place] heart without angina pectoris ([facility]) Primary hypertension ([facility]) Unspecified essential hypertension Chronic obstructive pulmonary disease, unspecified COPD type ([facility]) Chronic obstructive pulmonary disease, unspecified COPD type ([facility])- Primary Coronary artery disease involving [place] coronary artery of [place] heart without angina pectoris ([facility]) CKD (chronic kidney disease) stage 4, GFR 15-29 ml/min ([facility]) Chronic kidney disease, Stage IV (severe) Gastroesophageal reflux disease without esophagitis Esophageal reflux Recurrent major depressive disorder, in full remission ([facility]) Other hyperlipidemia EDITH (generalized anxiety disorder) ([facility]) Generalized anxiety disorder Recurrent major 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) ([facility]) Major depressive disorder, recurrent episode, in partial or unspecified remission Primary hypertension ([facility]) Unspecified essential hypertension Primary hypertension ([facility])- Primary Unspecified essential hypertension Other hyperlipidemia Coronary artery disease involving [place] coronary artery of [place] heart without angina pectoris ([facility]) Frequent falls Functional gait abnormality CKD (chronic kidney disease) stage 4, GFR 15-29 ml/min ([facility]) Chronic kidney disease, Stage IV (severe) Primary hypertension ([facility])- Primary Unspecified essential hypertension Chronic obstructive pulmonary disease, unspecified COPD type ([facility]) Chronic kidney disease, stage 4 (severe) ([facility]) Coronary artery disease involving [place] coronary artery of [place] heart without angina pectoris ([facility]) Gastroesophageal reflux disease without esophagitis Esophageal reflux EDITH (generalized anxiety disorder) ([facility]) Generalized anxiety disorder Recurrent major depressive disorder, in full remission ([facility]) Mixed hyperlipidemia ([facility]) Mixed hyperlipidemia MCI (mild cognitive impairment) Mild cognitive impairment, so stated Other hyperlipidemia Recurrent major 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) ([facility]) Major depressive disorder, recurrent episode, in partial or unspecified remission Neck pain- Primary Cervicalgia Primary hypertension ([facility]) Unspecified essential hypertension Chronic kidney disease, stage 4 (severe) ([facility]) EDITH (generalized anxiety disorder) ([facility]) Generalized anxiety disorder Functional gait abnormality MCI (mild cognitive impairment) Mild cognitive impairment, so stated EDITH (generalized anxiety disorder) ([facility])- Primary Generalized anxiety disorder documented in this encounter [facility]* Diagnosis Traumatic complete tear of left rotator cuff, subsequent encounter- Primary Recurrent major 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) ([facility]) Major depressive disorder, recurrent episode, in partial or unspecified remission Other hyperlipidemia EDITH (generalized anxiety disorder) ([facility]) Generalized anxiety disorder CKD (chronic kidney disease) stage 4, GFR 15-29 ml/min ([facility]) Chronic kidney disease, Stage IV (severe) Gastroesophageal reflux disease without esophagitis Esophageal reflux Coronary artery disease involving [place] coronary artery of [place] heart without angina pectoris ([facility]) Primary hypertension ([facility]) Unspecified essential hypertension Chronic obstructive pulmonary disease, unspecified COPD type ([facility]) Chronic obstructive pulmonary disease, unspecified COPD type ([facility])- Primary Coronary artery disease involving [place] coronary artery of [place] heart without angina pectoris ([facility]) CKD (chronic kidney disease) stage 4, GFR 15-29 ml/min ([facility]) Chronic kidney disease, Stage IV (severe) Gastroesophageal reflux disease without esophagitis Esophageal reflux Recurrent major depressive disorder, in full remission ([facility]) Other hyperlipidemia EDITH (generalized anxiety disorder) ([facility]) Generalized anxiety disorder Recurrent major 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) ([facility]) Major depressive disorder, recurrent episode, in partial or unspecified remission Primary hypertension ([facility] Unspecified essential hypertension Primary hypertension ([facility])- Primary Unspecified essential hypertension Other hyperlipidemia Coronary artery disease involving [place] coronary artery of [place] heart without angina pectoris ([facility]) Frequent falls Functional gait abnormality CKD (chronic kidney disease) stage 4, GFR 15-29 ml/min ([facility]) Chronic kidney disease, Stage IV (severe) Primary hypertension ([facility])- Primary Unspecified essential hypertension Chronic obstructive pulmonary disease, unspecified COPD type ([facility]) Chronic kidney disease, stage 4 (severe) ([facility]) Coronary artery disease involving [place] coronary artery of [place] heart without angina pectoris ([facility]) Gastroesophageal reflux disease without esophagitis Esophageal reflux EDITH (generalized anxiety disorder) ([facility]) Generalized anxiety disorder Recurrent major depressive disorder, in full remission ([facility]) Mixed hyperlipidemia ([facility]) Mixed hyperlipidemia MCI (mild cognitive impairment) Mild cognitive impairment, so stated Other hyperlipidemia Recurrent major 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) ([facility]) Major depressive disorder, recurrent episode, in partial or unspecified remission Neck pain- Primary Cervicalgia Primary hypertension ([facility]) Unspecified essential hypertension Chronic kidney disease, stage 4 (severe) ([facility]) EDITH (generalized anxiety disorder) ([facility]) Generalized anxiety disorder Functional gait abnormality MCI (mild cognitive impairment) Mild cognitive impairment, so stated Other hyperlipidemia Coronary artery disease involving [place] coronary artery of [place] heart without angina pectoris ([facility]) Primary hypertension ([facility] Unspecified essential hypertension Recurrent major 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) ([facility]) Major depressive disorder, recurrent episode, in partial or unspecified remission EDITH (generalized anxiety disorder) ([facility]) Generalized anxiety disorder documented in this encounter [facility]* Diagnosis Traumatic complete tear of left rotator cuff, subsequent encounter- Primary Recurrent major 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) ([facility]) Major depressive disorder, recurrent episode, in partial or unspecified remission Other hyperlipidemia EDITH (generalized anxiety disorder) ([facility]) Generalized anxiety disorder CKD (chronic kidney disease) stage 4, GFR 15-29 ml/min ([facility]) Chronic kidney disease, Stage IV (severe) Gastroesophageal reflux disease without esophagitis Esophageal reflux Coronary artery disease involving [place] coronary artery of [place] heart without angina pectoris ([facility]) Primary hypertension ([facility]) Unspecified essential hypertension Chronic obstructive pulmonary disease, unspecified COPD type ([facility]) Chronic obstructive pulmonary disease, unspecified COPD type ([facility])- Primary Coronary artery disease involving [place] coronary artery of [place] heart without angina pectoris ([facility]) CKD (chronic kidney disease) stage 4, GFR 15-29 ml/min ([facility]) Chronic kidney disease, Stage IV (severe) Gastroesophageal reflux disease without esophagitis Esophageal reflux Recurrent major depressive disorder, in full remission ([facility]) Other hyperlipidemia EDITH (generalized anxiety disorder) ([facility]) Generalized anxiety disorder Recurrent major 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) ([facility]) Major depressive disorder, recurrent episode, in partial or unspecified remission Primary hypertension ([facility] Unspecified essential hypertension Primary hypertension ([facility])- Primary Unspecified essential hypertension Other hyperlipidemia Coronary artery disease involving [place] coronary artery of [place] heart without angina pectoris ([facility]) Frequent falls Functional gait abnormality CKD (chronic kidney disease) stage 4, GFR 15-29 ml/min ([facility]) Chronic kidney disease, Stage IV (severe) Primary hypertension ([facility])- Primary Unspecified essential hypertension Chronic obstructive pulmonary disease, unspecified COPD type ([facility]) Chronic kidney disease, stage 4 (severe) ([facility]) Coronary artery disease involving [place] coronary artery of [place] heart without angina pectoris ([facility] Gastroesophageal reflux disease without esophagitis Esophageal reflux EDITH (generalized anxiety disorder) ([facility]) Generalized anxiety disorder Recurrent major depressive disorder, in full remission ([facility]) Mixed hyperlipidemia ([facility]) Mixed hyperlipidemia MCI (mild cognitive impairment) Mild cognitive impairment, so stated Other hyperlipidemia Recurrent major 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) ([facility]) Major depressive disorder, recurrent episode, in partial or unspecified remission Neck pain- Primary Cervicalgia Primary hypertension ([facility]) Unspecified essential hypertension Chronic kidney disease, stage 4 (severe) ([facility]) EDITH (generalized anxiety disorder) ([facility]) Generalized anxiety disorder Functional gait abnormality MCI (mild cognitive impairment) Mild cognitive impairment, so stated Primary hypertension ([facility]) Unspecified essential hypertension Other hyperlipidemia Neck pain Cervicalgia Recurrent major 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) ([facility]) Major depressive disorder, recurrent episode, in partial or unspecified remission Coronary artery disease involving [place] coronary artery of [place] heart without angina pectoris ([facility]) Gastroesophageal reflux disease without esophagitis Esophageal reflux Chronic obstructive pulmonary disease, unspecified COPD type ([facility]) EDITH (generalized anxiety disorder) ([facility]) Generalized anxiety disorder documented in this encounter [facility]* Diagnosis Traumatic complete tear of left rotator cuff, subsequent encounter- Primary Recurrent major 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) ([facility]) Major depressive disorder, recurrent episode, in partial or unspecified remission Other hyperlipidemia EDITH (generalized anxiety disorder) ([facility]) Generalized anxiety disorder CKD (chronic kidney disease) stage 4, GFR 15-29 ml/min ([facility]) Chronic kidney disease, Stage IV (severe) Gastroesophageal reflux disease without esophagitis Esophageal reflux Coronary artery disease involving [place] coronary artery of [place] heart without angina pectoris ([facility]) Primary hypertension ([facility]) Unspecified essential hypertension Chronic obstructive pulmonary disease, unspecified COPD type ([facility]) Chronic obstructive pulmonary disease, unspecified COPD type ([facility])- Primary Coronary artery disease involving [place] coronary artery of [place] heart without angina pectoris ([facility]) CKD (chronic kidney disease) stage 4, GFR 15-29 ml/min ([facility]) Chronic kidney disease, Stage IV (severe) Gastroesophageal reflux disease without esophagitis Esophageal reflux Recurrent major depressive disorder, in full remission ([facility]) Other hyperlipidemia EDITH (generalized anxiety disorder) ([facility]) Generalized anxiety disorder Recurrent major 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) ([facility]) Major depressive disorder, recurrent episode, in partial or unspecified remission Primary hypertension ([facility]) Unspecified essential hypertension Primary hypertension ([facility])- Primary Unspecified essential hypertension Other hyperlipidemia Coronary artery disease involving [place] coronary artery of [place] heart without angina pectoris ([facility]) Frequent falls Functional gait abnormality CKD (chronic kidney disease) stage 4, GFR 15-29 ml/min ([facility]) Chronic kidney disease, Stage IV (severe) Primary hypertension ([facility])- Primary Unspecified essential hypertension Chronic obstructive pulmonary disease, unspecified COPD type ([facility]) Chronic kidney disease, stage 4 (severe) ([facility]) Coronary artery disease involving [place] coronary artery of [place] heart without angina pectoris ([facility]) Gastroesophageal reflux disease without esophagitis Esophageal reflux EDITH (generalized anxiety disorder) ([facility]) Generalized anxiety disorder Recurrent major depressive disorder, in full remission ([facility]) Mixed hyperlipidemia ([facility]) Mixed hyperlipidemia MCI (mild cognitive impairment) Mild cognitive impairment, so stated Other hyperlipidemia Recurrent major 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) ([facility]) Major depressive disorder, recurrent episode, in partial or unspecified remission Neck pain- Primary Cervicalgia Primary hypertension ([facility]) Unspecified essential hypertension Chronic kidney disease, stage 4 (severe) ([facility]) EDITH (generalized anxiety disorder) ([facility]) Generalized anxiety disorder Functional gait abnormality MCI (mild cognitive impairment) Mild cognitive impairment, so stated Neck pain- Primary Cervicalgia [facility] Diagnosis Traumatic complete tear of left rotator cuff, subsequent encounter- Primary Recurrent major 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) ([facility]) Major depressive disorder, recurrent episode, in partial or unspecified remission Other hyperlipidemia EDITH (generalized anxiety disorder) ([facility]) Generalized anxiety disorder CKD (chronic kidney disease) stage 4, GFR 15-29 ml/min ([facility]) Chronic kidney disease, Stage IV (severe) Gastroesophageal reflux disease without esophagitis Esophageal reflux Coronary artery disease involving [place] coronary artery of [place] heart without angina pectoris ([facility]) Primary hypertension ([facility]) Unspecified essential hypertension Chronic obstructive pulmonary disease, unspecified COPD type ([facility]) Chronic obstructive pulmonary disease, unspecified COPD type ([facility])- Primary Coronary artery disease involving [place] coronary artery of [place] heart without angina pectoris ([facility]) CKD (chronic kidney disease) stage 4, GFR 15-29 ml/min ([facility]) Chronic kidney disease, Stage IV (severe) Gastroesophageal reflux disease without esophagitis Esophageal reflux Recurrent major depressive disorder, in full remission ([facility]) Other hyperlipidemia EDITH (generalized anxiety disorder) ([facility]) Generalized anxiety disorder Recurrent major 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) ([facility]) Major depressive disorder, recurrent episode, in partial or unspecified remission Primary hypertension ([facility]) Unspecified essential hypertension Primary hypertension ([facility])- Primary Unspecified essential hypertension Other hyperlipidemia Coronary artery disease involving [place] coronary artery of [place] heart without angina pectoris ([facility]) Frequent falls Functional gait abnormality CKD (chronic kidney disease) stage 4, GFR 15-29 ml/min ([facility]) Chronic kidney disease, Stage IV (severe) Primary hypertension ([facility])- Primary Unspecified essential hypertension Chronic obstructive pulmonary disease, unspecified COPD type ([facility]) Chronic kidney disease, stage 4 (severe) ([facility]) Coronary artery disease involving [place] coronary artery of [place] heart without angina pectoris ([facility]) Gastroesophageal reflux disease without esophagitis Esophageal reflux EDITH (generalized anxiety disorder) ([facility]) Generalized anxiety disorder Recurrent major depressive disorder, in full remission ([facility]) Mixed hyperlipidemia ([facility]) Mixed hyperlipidemia MCI (mild cognitive impairment) Mild cognitive impairment, so stated Other hyperlipidemia Recurrent major 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) ([facility]) Major depressive disorder, recurrent episode, in partial or unspecified remission Neck pain- Primary Cervicalgia Primary hypertension ([facility]) Unspecified essential hypertension Chronic kidney disease, stage 4 (severe) ([facility]) EDITH (generalized anxiety disorder) ([facility]) Generalized anxiety disorder Functional gait abnormality MCI (mild cognitive impairment) Mild cognitive impairment, so stated Cervical spondylosis- Primary Cervical spondylosis without myelopathy Neck pain Cervicalgia Primary hypertension ([facility]) Unspecified essential hypertension Chronic kidney disease, stage 4 (severe) ([facility]) EDITH (generalized anxiety disorder) ([facility]) Generalized anxiety disorder H/O: lung cancer Personal [...] kidney disease) stage 4, GFR 15-29 ml/min ([facility]) Chronic kidney disease, Stage IV (severe) Gastroesophageal reflux disease without esophagitis Esophageal reflux Coronary artery disease involving [place] coronary artery of [place] heart without angina pectoris Primary hypertension Unspecified essential hypertension Chronic obstructive pulmonary disease, unspecified COPD type ([facility]) Chronic obstructive pulmonary disease, unspecified COPD type ([facility])- Primary Coronary artery disease involving [place] coronary artery of [place] heart without angina pectoris CKD (chronic kidney disease) stage 4, GFR 15-29 ml/min ([facility]) Chronic kidney disease, Stage IV (severe) Gastroesophageal reflux disease without esophagitis Esophageal reflux Recurrent major depressive disorder, in full remission Other hyperlipidemia EDITH (generalized anxiety disorder) Generalized anxiety disorder Recurrent major depression in partial remission Major depressive disorder, recurrent episode, in partial or unspecified remission Primary hypertension Unspecified essential hypertension Primary hypertension- Primary Unspecified essential hypertension Other hyperlipidemia Coronary artery disease involving [place] coronary artery of [place] heart without angina pectoris Frequent falls Functional gait abnormality CKD (chronic kidney disease) stage 4, GFR 15-29 ml/min ([facility]) Chronic kidney disease, Stage IV (severe) Primary hypertension- Primary Unspecified essential hypertension Chronic obstructive pulmonary disease, unspecified COPD type ([facility]) Chronic kidney disease, stage 4 (severe) ([facility]) Coronary artery disease involving [place] coronary artery of [place] heart without angina pectoris Gastroesophageal reflux disease [...] Unspecified essential hypertension Coronary artery disease involving [place] coronary artery of [place] heart without angina pectoris Chronic kidney disease, stage 4 (severe) (HCC) Pulmonary hypertension (HCC) Other chronic pulmonary heart diseases EDITH (generalized anxiety disorder) Generalized anxiety disorder Other hyperlipidemia Neck pain Cervicalgia Recurrent major depression in partial remission Major depressive disorder, recurrent episode, in partial or unspecified remission Gastroesophageal reflux disease without esophagitis Esophageal reflux Chronic obstructive pulmonary disease, unspecified COPD type ([facility]) [facility] Cervical spondylosis- Primary Cervical spondylosis without myelopathy [facility] Diagnosis Dyspnea and respiratory abnormalities- Primary Other dyspnea and respiratory abnormality Centrilobular emphysema (HCC) Other emphysema Class 1 obesity due to excess calories with serious comorbidity and body mass index (BMI) of 32.0 to 32.9 in adult Sleep-disordered breathing Other sleep disturbances Coronary artery disease involving [place] coronary artery of [place] heart without angina pectoris- Primary Hx of [...] impairment, so stated [facility] Diagnosis Dyspnea and respiratory abnormalities- Primary Other dyspnea and respiratory abnormality Centrilobular emphysema (HCC) Other emphysema Class 1 obesity due to excess calories with serious comorbidity and body mass index (BMI) of 32.0 to 32.9 in adult Sleep-disordered breathing Other sleep disturbances Chronic heart failure with preserved ejection fraction (HCC)- Primary documented in this encounter [facility] general Narrative - Reported* Type Description Date Medical History hypertension Medical History hypercholesterolemia Medical History lung cancer Medical History heart disease Medical History A flutter Medical History Esophageal reflux Medical History DEPRESSION AND ANXIETY Surgical History CABG Surgical History hernia Surgical History lobectomy: lung Surgical [place] [facility] [place] 2020 Hospitalization History see above [employer] Other Hisjxke general Narrative - ReportedNort [employer] Other Hisekgz general Narrative - ReportedNort [employer] Other InstructionsNot on filedocumented in this encounter [facility] SystemReason for referral (narrative)* Reason * Waiting for appt pulmonology, lung nodule, progressive SOB, hx. lung cancer Diagnosis 1 Pulmonary nodule (R9 1.1) Referral Organization [facility] germaine Sparks Referring Provider First Name Cristo Referring Provider Last Name Gabriele Referring Provider Specialty Family Medi cine Referred Organization [facility] Referred Provider Gonsalo Hawley Referred Address [address] [place] [id number] Referred Provider Specialty Pulmonary Marium briseno Referral Priority Routine General Notes Mattie Carballo 01:40:04 PM >referral received and sent p2p successful per log [employer] Other Reason for referral (narrative)* Outpatient Procedure (Routine) - Pending Review Specialty Diagnoses / Procedures Referred By Lam chacko Ref[facility] To [facility] Diagnoses Shortness of breath Procedures SPIROMETRY WITH DILATOR IF OBSTRUCTED BRNCDILAT RSPSE SPMTRY PRE&POST-BRNCDILAT ADMN Marisol Davis MD [address] [place] [address] [facility] [place] [address] Referral ID Status Reason Start Date Expiration Date Visits Requested Visits Authorized [id number] Pending Review Auto-Generat ed Referral 02/09/2022 03/10/2023 1 1 [facility] for visit NarrativeRef by Dr. Suazo for pulmonology, lung nodule, progressive SOB, [place]x. [place] [employer] Other Summary Purpose Family History No Family [...] July 6:23pm Hospital Course Note MR#: [id number] I [facility] Pt. Name: Kel Castillo Admitted: [...] STEM W/[place] [address] [place] [address] Mr Imaging Referral ID Status Reason Start Date Expiration Date Visits Requested Visits Authorized [id number] Authorized Auto-Generat ed Referral 12/22/2021 01/21/2023 1 1 Specialty Diagnoses / Procedures Referred By Contac t Referred To Contact MR IMAGING Diagnoses Cognitive impairment, mild, so stated Procedures MRI 3D POST PROCESSING 3D RENDERING W/INTERP&POSTPROC DIFF WORK STATION Alonzo Cabrera MD, [address] [place] [address] Mr Imaging Referral ID Status Reason Start Date Expiration Date Visits Requested Visits Authorized [id number] Pending Review Auto-Generat ed Referral 02/08/2022 03/10/2023 1 1 Referral ID Status Reason Start Date Expiration Date V isits Requested Visits Authorized [id number] Closed Auto-Generate d Referral 12/22/2021 01/21/2023 1 1 Specialty Diagnoses / Procedures Referred By Heribertoac t Referred To Contact Psychology Diagnoses Recurrent major 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) Procedures CONSULT TO PSYCHOLOGY OFFICE/OUTPATIENT [facility] MDM 60-74 MINUTES Ebony Kaufman DO [address] [place] [address] Referral ID Status Reason Start Date Expiration Date Visits Requested Visits Authorized [id number] Pending Review PCP Requested Referral 04/10/2022 04/10/2023 1 1 Specialty Diagnoses / Procedures Referred By Heribertoac t Referred To Contact [facility] Diagnoses Abnormality of gait Procedures CONSULT TO PHYSICAL THERAPY PHYSICAL THERAPY EVALUATION HIGH COMPLEX 45 MINS Ebony Trent DO [address] [place] [address] [facility] [id number] [place] [address] Referral ID Status Reason Start Date Expiration Date Visits Requested Visits Authorized [id number] Pending Review Auto-Generat ed Referral 05/04/2024 05/04/2025 1 1 Specialty Diagnoses / Procedures Referred By Heribertoac t Referred To Contact CT IMAGING Diagnoses Memory loss Procedures CT BRAIN WO IVCON CT HEAD/BRAIN W/O CONTRAST MATERIAL Ebony Trent DO [address] [place] [address] [place] [address] Referral ID Status Reason Start Date Expiration Date Visits Requested Visits Authorized [id number] Authorized Auto-Generat ed Referral 05/04/2024 06/03/2025 1 1 Specialty Diagnoses / Procedures Referred By Lam chacko Referred To Contact Diagnoses Memory loss Procedures NEUROPSYCHOLOGICAL TESTING CONSULT NEUROBEHAVIORAL STATUS XM PHYS/QHP 1ST HOUR NEUROPSYCHOLOGICAL TST EVAL PHYS/QHP 1ST HOUR NEUROPSYCHOLOGICAL TST EVAL PHYS/QHP EA ADDL HR PSYCL/NRPSYCL TST TECH 2+ TST 1ST 30 MIN PSYCL/NRPSYCL TST TECH 2+ TST EA ADDL 30 MIN Mandeep SofiaEbony rayo, DO [address] [place] [address] Referral ID Status Reason Start Date Expiration Date Visits Requested Visits Authorized [id number] Ref Not Required PCP Requested Referral 05/04/2024 05/04/2025 1 3 Referral ID Status Reason Start Date Expiration Date V isits Requested Visits Authorized [id number] Closed Auto-Generate d Referral 05/04/2024 06/03/2025 1 1 Chief Complaint and Reason for Visit Chief Complaint g47.30 Chief Complaint RENAL 6 MONTH F/U Reason for Visit Anemia CAD (coronary artery disease) of artery bypass graft Chronic kidney disease, stage 3b Hyperkalemia Hyperlipemia [id number] Chief Complaint Admit Date RENAL 6 MONTH [...] section and content) DATE CREATED AUTHOR 04/05/2018 [facility] DATE CREATED AUTHOR AUTHOR'S ORGANIZ ATION 01/06/2020 [facility] DATE CREATED AUTHOR AUTHOR'S ORGANIZ ATION 12/19/2022 [facility] DATE CREATED AUTHOR AUTHOR'S ORGANIZ ATION 04/22/2023 [facility] DATE CREATED AUTHOR AUTHOR'S ORGANIZ ATION 03/04/2024 [place] DATE CREATED AUTHOR AUTHOR'S ORGANIZ ATION 05/13/2024 [facility] DATE CREATED AUTHOR AUTHOR'S ORGANIZ ATION 10/13/2024 [facility] DATE CREATED AUTHOR AUTHOR'S ORGANIZ ATION 03/03/2025 [facility] DATE CREATED AUTHOR AUTHOR'S ORGANIZ ATION 04/07/2025 [facility] DATE CREATED AUTHOR AUTHOR'S ORGANIZ ATION 04/07/2025 [facility] DATE CREATED AUTHOR AUTHOR'S ORGANIZ ATION 04/19/2025 [facility] Source Comments (unrecognize d section and content) In the event this informatio n is protected by the Federal Confidentiality of Alcohol and Drug Abuse Patient Records regulations: The Federal rules restrict any use of the information to criminally investigate or prosecute any alcohol or drug abuse patient.[facility] the event this information is protected by the Federal Confidentiality of Alcohol and Drug Abuse Patient Records regulations: The Federal rules restrict any use of the information to criminally investigate or prosecute any alcohol or drug abuse patient.[facility] Hospital[facility] the event this information is protected by the Federal Confidentiality of Alcohol and Drug Abuse Patient Records regulations: The Federal rules restrict any use of the information to criminally investigate or prosecute any alcohol or drug abuse patient.[facility] Hospital[facility] the event this information is protected by the Federal Confidentiality of Alcohol and Drug Abuse Patient Records regulations: The Federal rules restrict any use of the information to criminally investigate or prosecute any alcohol or drug abuse patient.[facility] Hospital[facility] the event this information is protected by the Federal Confidentiality of Alcohol and Drug Abuse Patient Records regulations: The Federal rules restrict any use of the information to criminally investigate or prosecute any alcohol or drug abuse patient.[facility] Hospital[facility] the event this information is protected by the Federal Confidentiality of Alcohol and Drug Abuse Patient Records regulations: The Federal rules restrict any use of the information to criminally investigate or prosecute any alcohol or drug abuse patient.[facility] Hospital[facility] the event this information is protected by the Federal Confidentiality of Alcohol and Drug Abuse Patient Records regulations: The Federal rules restrict any use of the information to criminally investigate or prosecute any alcohol or drug abuse patient.[facility] HospitalIn the event this information is protected by the Federal Confidentiality of Alcohol and Drug Abuse Patient Records regulations: The Federal rules restrict any use of the information to criminally investigate or prosecute any alcohol or drug abuse patient.[facility] Hospital[facility] the event this information is protected by the Federal Confidentiality of Alcohol and Drug Abuse Patient Records regulations: The Federal rules restrict any use of the information to criminally investigate or prosecute any alcohol or drug abuse patient.[facility] Hospital[facility] the event this information is protected by the Federal Confidentiality of Alcohol and Drug Abuse Patient Records regulations: The Federal rules restrict any use of the information to criminally investigate or prosecute any alcohol or drug abuse patient.[facility] Hospital[facility] the event this information is protected by the Federal Confidentiality of Alcohol and Drug Abuse Patient Records regulations: The Federal rules restrict any use of the information to criminally investigate or prosecute any alcohol or drug abuse patient.[facility] HospitalIn the event this information is protected by the Federal Confidentiality of Alcohol and Drug Abuse Patient Records regulations: The Federal rules restrict any use of the information to criminally investigate or prosecute any alcohol or drug abuse patient.[facility] HospitalIn the event this information is protected by the Federal Confidentiality of Alcohol and Drug Abuse Patient Records regulations: The Federal rules restrict any use of the information to criminally investigate or prosecute any alcohol or drug abuse patient.[facility] HospitalIn the event this information is protected by the Federal Confidentiality of Alcohol and Drug Abuse Patient Records regulations: The Federal rules restrict any use of the information to criminally investigate or prosecute any alcohol or drug abuse patient.[facility] HospitalIn the event this information is protected by the Federal Confidentiality of Alcohol and Drug Abuse Patient Records regulations: The Federal rules restrict any use of the information to criminally investigate or prosecute any alcohol or drug abuse patient.[facility] the event this information is protected by the Federal Confidentiality of Alcohol and Drug Abuse Patient Records regulations: The Federal rules restrict any use of the information to criminally investigate or prosecute any alcohol or drug abuse patient.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) Depression, unspecified depression type Procedures MRI BRAIN WO IVCON MRI BRAIN BRAIN STEM W/[place] [address] [address] [place] [id number] Mr Imaging Referral ID Status Reason Start Date Expiration Date V isits Requested Visits Authorized [id number] Closed Auto-Generate d Referral 12/22/2021 01/21/2023 1 1 Reason Comments Spirometry Specialty Diagnoses / Procedures Referred By Contac t Referred To Contact [facility] Diagnoses Shortness of breath Procedures SPIROMETRY WITH DILATOR IF OBSTRUCTED BRNCDILAT RSPSE SPMTRY PRE&POST-BRNCDILAT ADMN Marisol Davis MD [address] [place] [address] [facility] [address] [place] [address] Referral ID Status Reason Start Date Expiration Date V isits Requested Visits Authorized [id number] Closed Auto-Generate d Referral 02/09/2022 03/10/2023 1 1 Reason Comments New Patient 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) 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 Reason Comments Established Patient Reason Comments Follow-up MEDS/SHOULDER Reason Comments Established Patient Follow Up Specialty Diagnoses / Procedures Referred By Contac t Referred To Contact Neurology / NEUROLOGY Diagnoses Follow-up exam Follow up Procedures OFFICE/OUTPATIENT ESTABLISHED HIGH MDM 40 MIN EST NI PATIENT Self Ebony Trent DO [address] [place] [address] Referral ID Status Reason Start Date Expiration Date Visits Requested Visits Authorized [id number] Authorized Financial Clearance Not Required Patient Cleared - INN Insurance Found 05/01/2024 08/11/2024 99 [phone] Specialty Diagnoses / Procedures Referred By Lam t Referred To Contact CT IMAGING Diagnoses Memory loss Procedures CT BRAIN WO IVCON CT HEAD/BRAIN W/O CONTRAST MATERIAL Ebony Trent DO [address] [place] [address] Ct Imaging [place] [address] Referral ID Status Reason Start Date Expiration Date V isits Requested Visits Authorized [id number] Closed Auto-Generate d Referral 05/04/2024 06/03/2025 1 [...] TST EA ADDL 30 MIN Ebony Trent, [address] [place] [address] Referral ID Status Reason Start Date Expiration Date Visits Requested Visits Authorized [id number] Authorized PCP Requested Referral 05/04/2024 05/04/2025 1 3 Reason Comments Hypertension Reason Comments Follow-up Reason Comments Neck Pain Reason Comments Hypertension Reason Comments New Patient CAD Reason Onset Date Comments Results 04/02/2025 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 Comments 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 Care Teams (unrecognized sec tion and content) Reheat Furnace Operator Relationship Specialty Start Date [facility] [address] [place] [address] NI Referring Team Psychiatry 12/21/21 Reheat Furnace Operator Relationship Specialty Start Date End Date [facility] [address] [place] [address] NI Referring Team Psychiatry 12/21/21 Reheat Furnace Operator Relationship Specialty Start Date End Date [facility] [address] [place] [address] NI Referring Team Psychiatry 12/21/21 Reheat Furnace Operator Relationship Specialty Start Date End Date [facility], Thomas [address] [place] [address] NI Referring Team Psychiatry 12/21/21 Reheat Furnace Operator Relationship Specialty Start Date End Date [facility], Thomas [address] [place] [address] NI Referring Team Psychiatry 12/21/21 Reheat Furnace Operator Relationship Specialty Start Date End Date [facility], Thomas [address] [place] [address] NI Referring Team Psychiatry 12/21/21 Reheat Furnace Operator Relationship Specialty Start Date End Date [facility], Thomas [address] [place] [address] NI Referring Team Psychiatry 12/21/21 Team Status: Inactive Member Role Status Dates Corona Monreo MD Attending Provider Active Daria Cardoza DO Primary Care Provider Active Team Status: Active Member Role Status Dates Daria Cardoza DO Primary Care Provider Active Reheat Furnace Operator Relationship Specialty Start Date End Date [facility], Thomas [address] [place] [address] NI Referring Team Psychiatry 12/21/21 Reheat Furnace Operator Relationship Specialty Start Date End Date [...] March 31, 2024 End: March 31, 2024 Reheat Furnace Operator Relationship Specialty Start Date End Date Thomas Hurtado MD [address] [place] [address] NI Referring Team Psychiatry 12/21/21 Reheat Furnace Operator Relationship Specialty Start Date End Date Thomas Hurtado MD [address] [place] [address] NI Referring Team Psychiatry 12/21/21 Reheat Furnace Operator Relationship Specialty Start Date End Date Shaikh Grimes MD [address] [place] [address] PCP - [employer] 10/11/23 Jose Beckford MD [address] [place] [address] PCP - General Family Medicine 06/09/24 Jayy Coronado NP [address] [place] [address] Nurse Practitioner Family Medicine 06/09/24 Reheat Furnace Operator Relationship Specialty Start Date End Date Shaikh Grimes MD [address] [place] [address] PCP - [employer] 10/11/23 Jose Beckford MD [address] [place] [address] PCP - General Family Medicine 06/09/24 Jayy Coronado NP [address] [place] [address] Nurse Practitioner Family Medicine 06/09/24 Reheat Furnace Operator Relationship Specialty Start Date End Date Shaikh Grimes MD [address] [place] [address] PCP - [employer] 10/11/23 Jose Beckford MD [address] [place] [address] PCP - General Family Medicine 06/09/24 Jayy Coronado NP [address] [place] [phone] Nurse Practitioner Family Medicine 06/09/24 Vannessa Russell MA Family Medicine 06/17/24 06/18/24 Reheat Furnace Operator Relationship Specialty Start Date End Date Shaikh Grimes MD [address] [place] [address] PCP - [employer] 10/11/23 Jose Beckford MD [address] [place] [address] PCP - General Family Medicine 06/09/24 Jayy Coronado NP [address] [place] [address] Nurse Practitioner Family Medicine 06/09/24 Reheat Furnace Operator Relationship Specialty Start Date End Date Shaikh Grimes MD [address] [place] [address] PCP - [employer] 10/11/23 Jose Beckford MD [address] [place] [phone] PCP - General Family Medicine 06/09/24 Jayy Coronado NP [address] [place] [phone] Nurse Practitioner Family Medicine 06/09/24 Reheat Furnace Operator Relationship Specialty Start Date End Date Shaikh Grimes MD [address] [place] [phone] PCP - General Internal Medicine 08/12/22 Shaikh Grimes MD [address] [place] [phone] PCP - [employer] 10/11/23 Reheat Furnace Operator Relationship Specialty Start Date End Date Thomas Hurtado MD [address] [place] [address] [place] [address] NI Referring Team Psychiatry 12/21/21 Reheat Furnace Operator Relationship Specialty Start Date End Date Jose Beckford MD [address] [place] [phone] PCP - General Family Medicine 06/09/24 Jayy Coronado NP [address] [place] [address] Nurse Practitioner Family Medicine 06/09/24 Reheat Furnace Operator Relationship Specialty Start Date End Date Jose Beckford MD [address] [place] [address] PCP - General Family Medicine 06/09/24 Jayy Coronado NP [address] [place] [address] Nurse Practitioner Family Medicine 06/09/24 Reheat Furnace Operator Relationship Specialty Start Date End Date Thomas Hurtado MD [address] [place] [address] NI Referring Team Psychiatry 12/21/21 Team Status: Inactive Member Role Status Dates NON STAFF Primary Care Provider Active Start: October 27, 2024 End: October 27, 2024 Lisseth Toscano MD Attending Provider Active Star t: October 27, 2024 End: October 27, 2024 Reheat Furnace Operator Relationship Specialty Start Date End Date Jose Beckford MD [address] [place] [address] PCP - General Family Medicine 06/09/24 Jayy Coronado NP [address] [place] [address] Nurse Practitioner Family Medicine 06/09/24 Reheat Furnace Operator Relationship Specialty Start Date End Date Jose Beckford MD [address] [place] [phone] PCP - General Family Medicine 06/09/24 Jayy Coronado NP [address] [place] [address] Nurse Practitioner Family Medicine 06/09/24 Reheat Furnace Operator Relationship Specialty Start Date End Date Jose Beckford MD [address] [place] [address] PCP - General Family Medicine 06/09/24 Jayy Coronado NP [address] [place] [phone] Nurse Practitioner Family Medicine 06/09/24 Reheat Furnace Operator Relationship Specialty Start Date End Date Jose Beckford MD [address] [place] [phone] PCP - General Family Medicine 06/09/24 Jayy Coronado NP [address] [place] [phone] Nurse Practitioner Family Medicine 06/09/24 Reheat Furnace Operator Relationship Specialty Start Date End Date Jose Beckford MD [address] [place] [phone] PCP - General Family Medicine 06/09/24 Jayy Coronado NP [address] [place] [address] Nurse Practitioner Family Medicine 06/09/24 Reheat Furnace Operator Relationship Specialty Start Date End Date Jose Beckford MD [address] [place] [phone] PCP - General Family Medicine 06/09/24 Jayy Coronado NP [address] [place] [address] Nurse Practitioner Family Medicine 06/09/24 Reheat Furnace Operator Relationship Specialty Start Date End Date Jose Beckford MD [address] [place] [phone] PCP - General Family Medicine 06/09/24 Jayy Coronado NP [address] [place] [phone] Nurse Practitioner Family Medicine 06/09/24 Reheat Furnace Operator Relationship Specialty Start Date End Date Jose Beckford MD [address] [place] [phone] PCP - General Family Medicine 06/09/24 Jayy Coronado NP [address] [place] [phone] Nurse Practitioner Family Medicine 06/09/24 Reheat Furnace Operator Relationship Specialty Start Date End Date Jose Beckford MD [address] [place] [phone] PCP - General Family Medicine 06/09/24 Jayy Coronado NP [address] [place] [phone] Nurse Practitioner Family Medicine 06/09/24 Reheat Furnace Operator Relationship Specialty Start Date End Date Jose Beckford MD [address] [place] [phone] PCP - General Family Medicine 06/09/24 Jayy Coronado NP [address] [place] [phone] Nurse Practitioner Family Medicine 06/09/24 Reheat Furnace Operator Relationship Specialty Start Date End Date Jose Beckford MD [address] [place] [phone] PCP - General Family Medicine 06/09/24 Jayy Coronado NP [address] [place] [phone] Nurse Practitioner Family Medicine 06/09/24 Team Status: Inactive Member Role Status Dates NON STAFF Primary Care Provider Active Start: January 19, 2025 End: January 19, 2025 Lisseth Toscano MD Attending Provider Active Star t: January 19, 2025 End: January 19, 2025 Reheat Furnace Operator Relationship Specialty Start Date End Date RigobertorandolphSusan [place], PEANUT SORTER-LEATHER SEASONER [address] [place] [phone] PCP - General Nurse Practitioner 01/11/25 Reheat Furnace Operator Relationship Specialty Start Date End Date Jose Beckford MD [address] [place] [phone] PCP - General Family Medicine 06/09/24 Jayy Coronado NP [address] [place] [address] Nurse Practitioner Family Medicine 06/09/24 Reheat Furnace Operator Relationship Specialty Start Date End Date Jose Beckford MD [address] [place] [phone] PCP - General Family Medicine 06/09/24 Jayy Coronado NP [address] [place] [phone] Nurse Practitioner Family Medicine 06/09/24 Reheat Furnace Operator Relationship Specialty Start Date End Date Jose Beckford MD [address] [place] [phone] PCP - General Family Medicine 06/09/24 Jayy Coronado, EXTRUSION DIE CORRECTOR [address] [place] [phone] Nurse Practitioner Family Medicine 06/09/24 Reheat Furnace Operator Relationship Specialty Start Date End Date Susan Watson APRN-LEATHER SEASONER PCP - General Nurse Practitioner 01/11/25 Reheat Furnace Operator Relationship Specialty Start Date End Date Jose Beckford MD [address] [place] [phone] PCP - General Family Medicine 06/09/24 Jayy Coronado NP [address] [place] [phone] Nurse Practitioner Family Medicine 06/09/24 Reheat Furnace Operator Relationship Specialty Start Date End Date Susan Watson, LEATHER SEASONER [address] [place] [phone] PCP - General Family Medicine 04/01/25 Thomas Hurtado MD [address] [place] [address] NI Referring Team Psychiatry 12/21/21 Reheat Furnace Operator Relationship Specialty Start Date End Date Susan Watson, LEATHER SEASONER [address] [place] [address] PCP - General Family Medicine 04/01/25 Thomas Hurtado MD [address] [place] [address] NI Referring Team Psychiatry 12/21/21 Reheat Furnace Operator Relationship Specialty Start Date End Date RigobertoSusan pruitt Julieth, LEATHER SEASONER [address] [place] [address] PCP - General Family Medicine 04/01/25 Thomas Hurtado MD [address] [place] [address] NI Referring Team Psychiatry 12/21/21 Goals (unrecognized [...] BE BASED ON THE PRIMARY CLINICAL RECORDS. [facility] [employer] [facility]. provides no warranty or guarantee of the accuracy or completeness of information in this document.
[2025-04-20] MEDS: REGADENOSON 0.4 MG/5 ML SYRINGE IV (09:46)
--- NOTE | 2025-04-20 09:47 | PC.NURSE ---
Nursing Note Cardiac Stress Test Reviewed: Medication, allergies and patient history reviewed. Stress Test: [x ]? Patient tolerated stress test well. [ ]? Patient unable to tolerate walking on treadmill. Switched to Lexiscan stress test. [x]? No chest pain noted per patient [ ]? Chest pain that resolved prior to leaving stress lab. [ ]? No dyspnea noted. [ x]? Dyspnea that resolved prior to leaving stress lab. [x ]? Patient left stress lab asymptomatic and hemodynamically stable. [ ]? Patient taken to the Emergency Room due to non-resolving symptoms following stress test. [ ]? Patient achieved target heart rate. [ ]? Patient unable to achieve target heart rate. [ ]? Aminophylline administered as reversal agent to Lexiscan (Regadenoson). [ ]? Nitro administered. Nursing Comments: Procedure explained, consent signed, pt declined any questions or concerns prior to starting test. Pt declined chest pain but verbalized mild shortness of breath post Lexiscan injection that resolved within 2 minutes. Pt taken to cafeteria for breakfast.
--- NOTE | 2025-04-20 14:20 | PM.STRESS ---
Stress Test Stress Test Allergies Allergy/AdvReac Type Severity Reaction Status Date / Time No Known Drug Allergies Allergy Verified 07/10/23 15:24 Requesting physician: Sarah Tolliver Procedure: Lexiscan stress test General Information: Reason for Stress Test: [CAD, PAD, preoperative evaluation] Cardiac History and Risk Factors: [CAD, CABG, lung cancer] Resting 12 - Lead Electrocardiogram: Sinus bradycardia with PVS Non specific ST T wave changes Intraventricular conduction delay Abnormal EKG Stress Test: Protocol: [Lexiscan stress test] Exercise Capacity: [N/A] Blood Pressure Response: [N/A] Rhythm: [Sinus,PVCs] ST - Response: [No ischemic ST T wave changes] Patient Response: [No chest pain] Interpretation: 1. No ischemic EKG changes on Lexiscan stress test 2. Nuclear images are to be read, interpreted and reported separately
== END 2025-04-20 07:39 | disposition home or self-care (01) ==
PROVIDERS: PCP Nurse Practitioner; Visit Provider Internal Medicine Interventional Cardiology
DX: Z01.818 Encounter for other preprocedural examination (principal); I25.10 Atherosclerotic heart disease of native coronary artery without angina pectoris; I25.83 Coronary atherosclerosis due to lipid rich plaque
CPT/HCPCS: 78452; 93017; A9500; J2785

== ENCOUNTER 2025-04-27 07:43 | Outpatient (OUT) | payer MEDICARE, SELFPAY ==
--- OUTSIDE RECORDS SUMMARY | 2025-04-15 | XMS_ITS | Encounter Summary ---
Author Organization [facility] Address [address] [place] [address] Care Team Providers Care Taker [employer] Name Role Phone Susan Watson MD Primary Care Provider [phone] Reason for Referral * Imaging (Routine) - Pending Review Specialty Diagnoses / Procedures Referred By Lam t Referred To Contact Radiology Procedures CT transfer of outside films Chris Andre MD [address] [place] [address] Phone: tel: fax: Referral ID Status Reason Start Date Expiration Date V isits Requested Visits Authorized [id number] Pending Review 04/15/2025 04/15/2026 1 1 Reason for Visit * Imaging (Routine) - Pending Review Specialty Diagnoses / Procedures Referred By Lam chacko Referred To Contact Radiology Procedures CT transfer of outside films Chris Andre MD [address] [place] [address] Phone: tel: fax: Referral ID Status Reason Start Date Expiration Date V isits Requested Visits Authorized [id number] Pending Review 04/15/2025 04/15/2026 1 1 Encounter Details Date Type Department Care Team (Latest Contact Info) Description 04/15/2025 - 04/15/2025 11:59 PM EDT Hospital Encounter [facility] Radiology External Films [address] [place] [address] Discharge Disposition: Home or Self Care () Social History Tobacco Use Types Packs/Day Years Used Date Smoking Tobacco: Former Cigarettes Smokeless Tobacco: Never Alcohol Use Standard Drinks/Week Comments Not Currently [...] Information Value Date Recorded Sex Assigned at Male 04/08/2025 7:15 AM EDT Legal Sex Male 10:15 PM EDT Gender Identity Male 04/08/2025 7:15 AM EDT Sexual Orientation Heterosexual or Straight 03/13 7:15 AM EDT documented as of this encounter Medications at Time of Discharge albuterol 90 mcg/actuation inhaler INHALE 1 PUFF BY MOUTH EVERY 4 HOURS NEEDED 12/02/2021 amLODIPine (Norvasc) 5 mg tablet Take 1 tablet by mouth in the morning. aspirin 81 mg EC tablet Take 1 tablet by mouth in the morning. atorvastatin (Lipitor) 80 mg tablet Take 80 mg by mouth at bedtime. 10/08/2024 buPROPion XL (Wellbutrin XL) 300 mg 24 hr tablet Use 1 tablet in the mouth or throat in the morning. busPIRone (Buspar) 15 mg tablet Take 1 tablet by mouth in the morning and at bedtime. clopidogrel (Plavix) 75 mg tablet Take 75 mg by mouth in the morning. 03/01/2025 5 famotidine (Pepcid) 20 mg tablet Take 20 mg by mouth twice a day. 10/08/2024 fenofibrate micronized (Antara) 43 mg capsule Take 1 capsule by mouth in the morning and at bedtime. ferrous sulfate 325 (65 Fe) MG tablet Take 325 mg by mouth in the morning. 03/01/2025 5 fluticasone-umecl idin-vilanter (Trelegy Ellipta) 100-62.5-25 mcg blister with device Inhale 1 puff in the morning. 02/18/2024 isosorbide mononitrate ER (Imdur) 60 mg 24 hr tablet Take 1 tablet by mouth in the morning. lisinopril 10 mg tablet Take 10 mg by mouth in the morning. metoprolol succinate XL (Toprol-XL) 50 mg 24 hr tablet Take 1 tablet by mouth in the morning and at bedtime. metoprolol tartrate (Lopressor) 50 mg tablet Take 50 mg by mouth two times daily. nitroglycerin (Nitrostat) 0.[address] 1 tablet by sublingual route as needed. 06/17/2024 OLANZapine (ZyPREXA) 5 mg tablet Take 5 mg by mouth at bedtime. sertraline (Zoloft) 100 mg tablet Take 2 tablets by mouth in the morning. traZODone (Desyrel) 100 mg tablet Take 1 tablet by mouth at bedtime. documented as of this encounter Plan of Treatment Upcoming Encounters Date Type Department Care Team (Late st Contact Info) Description 05/10/2025 2:45 PM EDT Office Visit [facility] Heart [facility] [address] [place] [phone] Sarah Tolliver MD [address] [facility] [place] [phone] 05/24/2025 1:30 PM EDT Pre-Admission Testing [facility] Pre-Anesthesia Clinic [address] [place] [phone] 06/07/2025 11:00 AM EDT Hospital Encounter [facility] Main Operating Room [address] [place] [phone] Chris Andre MD [address] [facility] [place] [address] Lower extremity pain, bilateral; Severe claudication; Encounter for pre-operative examination 06/07/2025 11:00 AM EDT - 06/07/2025 2:00 PM EDT Surgery [facility] Main Operating Room [address] [place] [phone] Chris Andre MD [address] [place] [address] CREATION, BYPASS, ARTERIAL, FEMORAL TO POPLITEAL, USING GRAFT [[id number] (CPT )] Scheduled Procedures Name Priority Associated Diagnoses Date/Ti me CREATION, BYPASS, ARTERIAL, FEMORAL TO POPLITEAL, USING GRAFT Lower extremity pain, bilateral Severe claudication Encounter for pre-operative examination 06/07/2025 11:00 AM EDT LOWER EXTREMITY INTERVENTION Lower extremity pain, bilateral Severe claudication Encounter for pre-operative examination 06/07/2025 11:00 AM EDT documented as of this encounter Procedures Procedure Name Priority Date/Time Associated Diagnosis Comments CT TRANSFER OF OUTSIDE FILMS Routine 04/15/2025 12:00 AM EDT documented in this encounter Results * CT transfer of outside films (04/15/2025 12:00 AM EDT) Narrative IMAGING - 04/15/2025 9:57 AM EDT This order has been auto-finalized and does not contain a result. Chris Andre MD IMG CT PROCEDURES Final Result IMAGING documented in this encounter Visit Diagnoses Not on filedocumented in this encounter Care Teams Taker [employer] Relationship Specialty Start Date End Date Susan Watson MD [facility] [place] [address] PCP - General Nurse Practitioner 10/13/24 documented as of this encounter
--- OUTSIDE RECORDS SUMMARY | 2025-04-21 15:15 | XMS_ITS | Encounter Summary ---
Author Organization [facility] Address [address] [place] [address] Care Team Providers Care Suction Drum Drier Operator Name Role Phone Susan Watson MD Primary Care Provider [phone] Reason for Referral * Imaging (Routine) - Pending Review Specialty Diagnoses / Procedures Referred By Lam t Referred To Contact Radiology Procedures CT transfer of outside films Chris Andre MD [address] [place] [phone] Phone: tel: fax: Referral ID Status Reason Start Date Expiration Date V isits Requested Visits Authorized [id number] Pending Review 04/15/2025 04/15/2026 1 1 Reason for Visit * Reason Comments Consult PAD, leg pain Encounter Details Date Type Department Care Team (Late st Contact Info) Description 04/21/2025 3:15 PM EDT Office Visit [facility] Vascular and Endovascular Surgery [address] [place] [phone] Chris Andre MD [address] [place] [phone] Social History Tobacco Use Types Packs/Day Years Used Date Smoking Tobacco: Former Cigarettes Smokeless Tobacco: Never Alcohol Use Standard Drinks/Week Comments Not Currently 0 (1 standard drink = 0.6 oz pur e alcohol) PHQ-2 Answer Date Recorded Patient Health Questionnaire-2 Score 3 04/21/2025 IN Safety & Environment Answer Date Rec orded [...] AM EDT documented as of this encounter Last Filed Vital Signs Vital Sign Reading Time Taken Comments Blood Pressure 117/61 04/21/2025 3:09 PM EDT Pulse 53 04/21/2025 3:09 PM EDT Temperature 36.6 C (97.8 F) 04/21/2025 3:09 PM EDT Respiratory Rate - - Oxygen Saturation 98% 04/21/2025 3:09 PM EDT Inhaled Oxygen Concentration - - Weight 72.6 kg (160 lb) 04/21/2025 3:09 PM EDT Height 167.6 cm (5' 6 ) 04/21/2025 3:09 PM EDT Body Mass Index 25.82 04/21/2025 3:09 PM EDT documented in this encounter Functional Status documented as of this encounter Progress Notes * Lamont James MA - 04/21/2025 3:15 PM EDT Images from the original note were not included. DIVISION OF VASCULAR SURGERY HPI You Garcia is a 69 y.o. male who presents today for No chief complaint on file. Patient referred to us for PAD. HE has had a HUBER study done at [facility] on 02/23/25. Patientwith a history of history of coronary artery disease, prior coronary artery bypass graft surgery, peripheral arterial disease, COPD, dyslipidemia, and movement disorder. He had a aortogram done by Dr. Tolliver on 04/08/25. Patient is taking aspirin, atorvastatin and plavix daily. ROS Past Medical History: Medical History[1] Objective Visit Vitals Smoking Status Former Vascular Physical Exam Imaging Reviewed: Assessment and Plan: [1] Past Medical History: Diagnosis Date Cancer (CMS/HCC) Coronary artery disease Hyperlipidemia Hypertension documented in this encounter Plan of Treatment Upcoming Encounters Date Type Department Care Team (Late st Contact Info) Description 05/10/2025 2:45 PM EDT Office Visit [facility] [address] [place] [address] Sarah Tolliver MD [address] [place] [address] [facility] [place] [address] 05/24/2025 1:30 PM EDT Pre-Admission Testing [facility] Pre-Anesthesia Clinic [address] [place] [address] 06/07/2025 11:00 AM EDT Hospital Encounter [facility] Main Operating Room [address] [facility] [facility] [place] [address] Chris Andre MD [address] [facility] [facility] [place] [address] Lower extremity pain, bilateral; Severe claudication; Encounter for pre-operative examination 06/07/2025 11:00 AM EDT - 06/07/2025 2:00 PM EDT Surgery [facility] Main Operating Room [address] [place] [address] Chris Andre MD [address] [facility] [facility] [place] [address] CREATION, BYPASS, ARTERIAL, FEMORAL TO POPLITEAL, USING GRAFT [[id number] (CPT )] Scheduled Procedures Name Priority Associated Diagnoses Date/Ti me CREATION, BYPASS, ARTERIAL, FEMORAL TO POPLITEAL, USING GRAFT Lower extremity pain, bilateral Severe claudication Encounter for pre-operative examination 06/07/2025 11:00 AM EDT LOWER EXTREMITY INTERVENTION Lower extremity pain, bilateral Severe claudication Encounter for pre-operative examination 06/07/2025 11:00 AM EDT documented as of this encounter Results * CT transfer of outside films (04/15/2025 12:00 AM EDT) Narrative IMAGING - 04/15/2025 9:57 AM EDT This order has been auto-finalized and does not contain a result. Chris Andre MD IMG CT PROCEDURES Final Result Performing Organization Address City/State/[facility] Co de Phone Number IMAGING documented in this encounter Visit Diagnoses Not on filedocumented in this encounter Care Teams Suction Drum Drier Operator Relationship Specialty Start Date End Date Susan Watson MD [facility] [place] [address] PCP - General Nurse Practitioner 10/13/24 documented as of this encounter
--- OUTSIDE RECORDS SUMMARY | 2025-04-27 07:45 | XMS_ITS | Clinical Summary ---
Author Organization [facility] Healthcare Address [address] [place] [address] Care Team Providers Care Contact Lens Manufacturer Name Role Phone Jose Beckford MD Primary Care Provider [phone] Cherelle Coronado NP Unavailable [phone] Allergies No known active allergies Medications albuterol HFA 90 mcg/act inhaler Inhale 2 puffs every 4 (four) hours if needed for wheezing Active nitroglycerin (Nitrostat) 0.4 MG SL tabletIndications:C oronary artery disease involving mary's igloo coronary artery of mary's igloo heart without angina pectoris Place 1 tablet (0.4 mg) under the tongue every 5 (five) minutes if needed for chest pain 30 tablet 4 Active baclofen (Lioresal) 10 MG tabletIndications:N juan alberto pain Take 1 tablet (10 mg) by mouth as needed at bedtime for muscle spasms for up to 15 days 15 tablet 5 Active amLODIPine (Norvasc) 5 MG tabletIndications:P rimary hypertension Take 1 tablet (5 mg) by mouth every 12 (twelve) hours 180 tablet 1 5 05/30/20 25 Active aspirin 81 MG EC tabletIndications:C oronary artery disease involving mary's igloo coronary artery of 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 90 tablet 1 5 05/30/20 25 Active atorvastatin (Lipitor) 80 MG tabletIndications:O ther hyperlipidemia Take 1 tablet (80 mg) by mouth at bedtime 90 tablet 1 5 05/30/20 25 Active buPROPion XL (Wellbutrin XL) 300 MG 24 hr tabletIndications:R ecurrent major depression in partial remission Take 1 tablet (300 mg) by mouth in the morning. Do not crush, chew, or split. 90 tablet 05/30/20 25 Active busPIRone (Buspar) 15 MG tabletIndications:R ecurrent major depression in partial remission Take 1 tablet (15 mg) by mouth in the morning and 1 tablet (15 mg) before bedtime. 180 tablet 05/30/20 25 Active clopidogrel (Plavix) 75 MG tabletIndications:C oronary artery disease involving mary's igloo coronary artery of mary's igloo heart without angina pectoris Take 1 tablet (75 mg) by mouth Daily 90 tablet 05/30/20 25 Active famotidine (Pepcid) 20 MG tabletIndications:G astroesophageal reflux disease without esophagitis Take 1 tablet (20 mg) by mouth in the morning and 1 tablet (20 mg) before bedtime. 180 tablet 05/30/20 25 Active fenofibrate micronized (Antara) 43 MG capsuleIndications: Other hyperlipidemia Take 1 capsule (43 mg) by mouth in the morning. Take with meals. 90 capsule 05/30/20 25 Active ferrous sulfate (FeroSul) 325 (65 Fe) MG tabletIndications:C hronic kidney disease, stage 4 (severe) ([facility]) Take 1 tablet (325 mg) by mouth in the morning. Take with meals. 90 tablet 05/30/20 25 Active Fluticasone-Umeclid in-Vilant (Trelegy Ellipta) 100-62.5-25 MCG/ACT aerosol powderIndications:C hronic obstructive pulmonary disease, unspecified COPD type (HCC) Inhale 1 puff Daily Rinse mouth after use. Inhale 1 puff Daily 180 each 05/30/20 25 Active isosorbide mononitrate ER (Imdur) 60 MG 24 hr tabletIndications:P rimary hypertension,Celeste ry artery disease involving mary's igloo coronary artery of mary's igloo heart without angina pectoris Take 1 tablet (60 mg) by mouth Daily Do not crush or chew. 90 tablet 05/30/20 25 Active lisinopril 10 MG tabletIndications:P rimary hypertension Take 1 tablet (10 mg) by mouth Daily 90 tablet 1 5 05/30/20 Active metoprolol tartrate (Lopressor) 50 MG tabletIndications:P rimary hypertension,Celeste ry artery disease involving mary's igloo coronary artery of mary's igloo heart without angina pectoris Take 1 tablet (50 mg) by mouth in the morning and 1 tablet (50 mg) before bedtime. 180 tablet 1 5 05/30/20 Active OLANZapine (ZyPREXA) 5 MG tabletIndications:G AD (generalized anxiety disorder) Take 1 tablet (5 mg) by mouth at bedtime 90 tablet 1 5 05/30/20 25 Active sertraline (Zoloft) 100 MG tabletIndications:G AD (generalized anxiety disorder),Recurrent major depression in partial remission Take 2 tablets (200 mg) by mouth Daily 180 tablet 1 5 05/30/20 Active traZODone (Desyrel) 100 MG tabletIndications:G AD (generalized anxiety disorder),Recurrent major depression in partial remission Take 1 tablet (100 mg) by mouth at bedtime 90 tablet 1 5 05/30/20 Active Active Problems Problem Noted Date Diagnosed Date Chronic diastolic heart failure 03/01/2025 Assessment & Plan (03/01/2025 7:08 AM EDT): Noted on ECHO: 02/18/2525 grade 3 Current meds: plavix, norvasc, imdur, raulito, b kelsy, Pulmonary hypertension 03/01/2025 Assessment & Plan (03/01/2025 7:09 AM EDT): Noted on ECHO from 02/18/25 pressure 46 Cervical spondylosis 01/19/2025 Assessment & Plan (03/01/2025 7:10 AM EDT): Referred to Dr Cherry pain mgmt Xr 02/08/25 DDD mod, C5-C6 and C6 C7 Neck pain 11/19/2024 Assessment & Plan (03/01/2025 3:16 PM EDT): Continue with Pain Mgmt Assessment & Plan (01/19/2025 2:29 PM EDT): [...] disease, unspecifi ed 03/11/2024 Assessment & Plan (03/01/2025 3:16 PM EDT): Is prescribed trelegy inhaler Assessment & Plan (11/19/2024 6:59 AM EDT): Is prescribed trelegy inhaler Assessment & Plan (10/08/2024 5:49 PM EST): Current meds: albuterol, trelegy Cannot afford trelegy, but does help breathing #2 samples trelegy: 100/25, XM5N, exp 01/04 Assessment & Plan (03/11/2024 2:27 PM EDT): Well controlled on Trelegy. No recent exacerbations. Uses albuterol as needed. 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 angina pectoris 09/19/2023 Assessment & Plan (03/01/2025 7:08 AM EDT): Established with [facility] Cardiology Current meds: asa, amlodipine, statin, plavix, imdur, raulito, b kelsy, and prn nitro Assessment & Plan (11/19/2024 7:00 AM EDT): Established with [facility] Cardiology Current meds: asa, amlodipine, statin, plavix, imdur, raulito, b kelsy, and prn nitro Assessment & Plan (10/08/2024 5:49 PM EST): Current meds: plavix, amlodipine, statin, b kelsy, nitroglycerin prn No acute symptoms, cont with [facility] Cardiology Assessment & Plan (03/11/2024 2:27 PM EDT): S/p CABG. On ASA, BB, Imdur, plavix, statin Denies CP, SOB, palpitations. Following [facility] cardiology. Assessment & Plan (09/19/2023 5:32 PM EST): S/p CABG. On ASA, BB, Imdur, plavix, statin Denies CP, SOB, palpitations. Following [facility] cardiology. Mixed hyperlipidemia 09/19/2023 Assessment & Plan [...] stage 4 (severe) 024 Assessment & Plan (03/01/2025 7:08 AM EDT): Continue with Nephrology Check labs yearly and prn Assessment & Plan (01/19/2025 6:47 AM EDT): [...] without esophagi tis 09/19/2023 Assessment & Plan (03/01/2025 3:16 PM EDT): Recommendations: freq small meals, nothing to eat or drink at least 2 hours prior to bed, limit caffeine, alcohol, as well as spicy foods Meds to limit or avoid if possible: NSAIDS Elevate HOB if possible Current meds: famotidine Assessment & Plan (11/19/2024 7:01 AM EDT): [...] (generalized anxiety disorder) 09/19/2023 Assessment & Plan (03/01/2025 7:11 AM EDT): Current meds: wellbutrin, buspar, sertraline and olanzapine Assessment & Plan (01/19/2025 6:49 AM EDT): Current meds: wellbutrin, buspar, sertraline and olanzapine Assessment & Plan (11/19/2024 2:12 PM EDT): Current meds: wellbutrin, buspar, sertraline Pt's daughter is a pysch ASSISTED LIVING MANAGER, I have given daughter present today options [...] RECURRENT MAJOR DEPRESSION IN PARTIAL REMISSION (HCC) ([facility]) WRITTEN ON 09/19/2023 5:35 PM BY SHAIKH MOIZ MD Symptoms improved and well controlled since Zoloft was increased to 200 mg. C.w wellbutrin, zoloft, buspirone, trazodone and olanzapine. No SI/HI. 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 ; Chronic kidney disease, stage 4 (severe) (HCC); Pulmonary hypertension (HCC); EDITH (generalized anxiety disorder) ; Other hyperlipidemia ; Neck pain; Recurrent major depression in partial remission ; Gastroesophageal reflux disease without esophagitis; Chronic obstructive pulmonary disease, unspecified COPD type (HCC) 03/01/2025 Bamboo flowsheet [facility] [address] [place] [address] Susan Watson NP 02/28/2025 Travel 02/24/2025 Abstract [facility] [address] [place] [address] Susan Watson NP 02/19/2025 Clinisync Result Encounter [facility] External Department Unsolicited Provider, Generic External Data 02/18/2025 Clinisync Result Encounter [facility] External Department Unsolicited Provider, Generic External Data from Last 3 Months Immunizations Immunization Administration [...] e alcohol) caffeine: 1-2 cups per day B1300 Health Literacy Answer Date Recor ded How often do you need to hav e someone help you when you read instructions, pamphlets, or other written material from your doctor or pharmacy? Sometimes 02/28/2025 Humiliation, Afraid, Rape, and Kick questionnair e Answer Date Recorded Within the last year, have y ou been afraid of your partner or ex-partner? No 02/28/2025 Within the last year, have y ou been humiliated or emotionally abused in other ways by your partner or ex-partner? No Within the last year, have y ou been kicked, hit, slapped, or otherwise physically hurt by your partner or ex-partner? No 02/28/2025 Within the last year, have y ou been raped or forced to have any kind of sexual activity by your partner or ex-partner? No 02/28/2025 Social Connection and Isolat ion Panel [NHANES] Answer Date Recorded In a typical week, how many times do you talk on the phone with family, friends, or neighbors? More than three times a week 02/28/2025 How often do you get togethe r with friends or relatives? Once a week 02/28/2025 How often do you attend chur ch or jainism services? Never 02/28/2025 Do you belong to any clubs o r organizations such as sabianism groups, unions, fraternal or athletic groups, or school groups? No 02/28/2025 How often do you attend meet ings of the clubs or organizations you belong to? Never 02/28/2025 Are you , , di vorced, , never , or living with a partner? 02/28/2025 AUDIT-C Answer Date Recorded Q1: How often do you have a drink containing alcohol? Never 02/28/2025 Q2: How many drinks containi ng alcohol do you have on a typical day when you are drinking? Patient does not drink Frequency of Binge Drinking Not on file 02/10 Overall Financial Resource Strain (CARDIA) Answe r Date Recorded How hard is it for you to pa y for the very basics like food, housing, medical care, and heating? Not very hard 02/28/2025 PHQ-2 Answer Date Recorded Patient Health Questionnaire-2 Score 0 03/11/2024 [place] [employer] [facility] - Occupational Stress Questionnaire Answer Date Recorded Do you feel stress - tense, restless, nervous, or anxious, or unable to sleep at night because your mind is troubled all the time - these days? To some extent 02/28/2025 Exercise Vital Sign Answer Date Recorde d On average, how many days pe r week do you engage in moderate to strenuous exercise (like a brisk walk)? 0 days 02/28/2025 On average, how many minutes do you engage in exercise at this level? 0 min 02/28/2025 Hunger Vital Sign Answer Date Recorded Within the past 12 months, y ou worried that your food would run out before you got the money to buy more. Never true 02/29/20 Within the past 12 months, t he food you bought just didn't last and you didn't have money to get more. Never true 02/28/2025 PRAPARE - Transportation Answer Date Re corded In the past 12 months, has l ack of transportation kept you from medical appointments or from getting medications? No 02/10 In the past 12 months, has l ack of transportation kept you from meetings, work, or from getting things needed for daily living? No 02/28/2025 Housing Stability Vital Sign Answer Jassi e [...] place to sleep or slept in a custodial (including now)? No 07/22/2023 Housing Stability Vital Sign Answer Jassi e Recorded In the last 12 months, was t here a time when you were not able to pay the mortgage or rent on time? No 02/28/2025 In the past 12 months, how m any times have you moved where you were living? 0 02/28/2025 At any time in the past 12 m [facility], were you homeless or living in a custodial (including now)? No 02/28/2025 Sex and Gender Information Value Date Recorded Sex Assigned at Not on file Legal Sex Male 10:05 PM EDT Gender Identity Not on file Sexual Orientation Not on file Last Filed Vital Signs Vital Sign Reading Time Taken Comments Blood Pressure 126/64 03/01/2025 1:45 PM EDT Pulse 54 03/01/2025 1:45 PM EDT Temperature 36.3 C (97.3 F) 03/01/2025 1:45 PM EDT Respiratory Rate 18 03/01/2025 1:45 PM EDT Oxygen Saturation 97% 03/01/2025 1:45 PM EDT Inhaled Oxygen Concentration - - Weight 75.6 kg (166 lb 9.6 oz) 03/01/2025 1:45 P M EDT Height 172.7 cm (5' 8 ) 06/17/2024 1:13 PM EST Body Mass Index 25.33 06/17/2024 1:13 PM EST Plan of Treatment Health Maintenance Due Date Last Done Comments CT Colonography 1955 FIT-DNA 1955 FIT 1955 FOBT 1955 Sigmoidoscopy 1955 Influenza Vaccine (#1) 2025 05/23/2021, 2019 Colonoscopy 06/21/2031 06/21/2021 Colorectal Cancer Screening 06/21/2031 Pneumococcal Vaccine: 65+ Years Completed , 08/27/2019 Procedures Procedure Name Priority Date/Time Associated Diagnosis Comments [facility] NT-PROBNP SERPL-MCNC Routine 04/01/2025 3:19 PM EDT [facility] CREATININE Routine 03/11/2025 9:12 AM EDT CA ECHO DOPPLER COMPLETE 02/19/2025 6:22 PM EDT SEGMENTAL BLOOD PRESSURE 02/18/2025 8:41 AM EDT COLONOSCOPY Routine 06/21/2021 12:00 PM EST Encounter for screening for malignant neoplasm of colon from Last 3 Months or Most Recently Relevant to Health Maintenance Results * (ABNORMAL) [facility] NT-PROBNP SERPL-MCNC (04/01/2025 3:19 PM EDT) [facility] NT-PROBNP SERPL-NC 4,813(H) <125 pg/mL [facility] 04/01/2025 3:19 PM EDT 04/01/2025 4:22 PM EDT Narrative CLINISYNC - 04/01/2025 5:02 PM EDT Specimen Type: BLOOD SPECIMEN Ordering Facility: [facility] Address: [address] [place] [address] Original Ordering Provider: BILL WAGNER Generic External Data Provider [facility] F inal Result Performing Organization Address [facility] Co de Phone Number [facility] [address] [phone] * (ABNORMAL) [facility] CREATININE (03/11/2025 9:12 AM EDT) Pathologist [facility] CREATININE 2.07(H) 0.70 - 1.30 mg/dL [facility]H EGFR-AF MOZAMBICAN 39(L) >=60 mL/min/1.7 3m 2 TBH [facility] EGFR-NON AF [place] 32(L) >=60 mL/min/1.7 3m 2 [facility] 03/11/2025 9:12 AM EDT 03/11/2025 9:13 AM EDT Narrative [facility] - 03/11/2025 9:27 AM EDT Generic External Data Provider [facility] F inal Result Performing Organization Address City/[facility]/ZIP Co de Phone Number [facility] * CA ECHO DOPPLER COMPLETE (02/19/2025 6:22 PM EDT) Anatomical Region Laterality Modality Other 02/19/2025 6:22 PM EDT Narrative 02/19/2025 6:23 PM EDT The [address] [address] Cardiology Report Signed Patient: KEL CASTILLO Jr. MR#: [id number] : 1955 Acct:[id number] Age/Sex: 69 / M ADM Date: 02/18/25 Loc: CARD Attending Dr: Sarah Padilla M.D. Ordering Physician: Sarah Padilla M.D. Date of Service: 02/18/25 Procedure(s): CA echo doppler complete Accession Number(s): [id number] cc: Susan Watson NP; Sarah Padilla M.D. Patient Name: KEL CASTILLO MR#: [id number] : 1955 Exam Date: 02/18/2025 Ordering Doctor: DR SARAH PADILLA M.D. ECHOCARDIOGRAM REPOR PROCEDURE: CA ECHO DOPPLER [...] Area (VTI): 2.12 cm2, 2.12 cm2 Deceleration Highland: Pressure Half-Time: Peak Velocity(Antegrade Flow): 1.47 m/s [...] M.D. Signed By: 02/19/251822 DD/ 21 TD/TT: Furnace Firer: Procedure Note Radiology, Radiologist, - 02/19/2025 [place] [address] Cardiology Report Signed Patient: KEL CASTILLO Jr.MR#: [id number] : 1955cct:[id number] Age/Sex: 69 / MADM Date: 02/18/25 Loc: CARD Attending Dr: Sarah Padilla M.D. Ordering Physician: Sarah Padilla M.D. Date of Service: 02/18/25 Procedure(s): CA echo doppler complete Accession Number(s): [id number] cc: Susan Watson NP; Sarah Padilla M.D. Patient Name: KEL CASTILLO MR#: [id number] : 1955 Exam Date: 02/18/2025 Ordering Doctor: DR SARAH PADILLA M.D. ECHOCARDIOGRAM REPOR PROCEDURE: CA ECHO DOPPLER COMPLETE INDICATIONS: Dyspnea on exertion, CABGx3, hypertension COMPARISON: None. DESCRIPTION: COMPLETE ECHOCARDIOGRAM Real-time transthoracic echocardiography with 2D, M-mode, spectral and color flow Dopplerperformed. QUALITY: Technical quality was good. LEFT VENTRICLE: Normal chamber size. Mild concentric left ventricular hypertrophy. Calculated left ventricular ejection fraction is 56%. LV EF: Normal left ventricular ejection fraction, (>55%). DIASTOLIC: Grade III diastolic dysfunction. ATRIAL SEPTUM: Visually appears intact. LEFT ATRIUM: Severe dilatation. RIGHT ATRIUM: Mild dilatation. RIGHT VENTRICLE: Normal chamber size. Normal right ventricularsystolic function. TRICUSPID VALVE: Normal mobility and thickness. No stenosis with mild regurgitation. Doppler studies reveal mildly (35-45) elevated right sided pressures.RVSP 46 mmHg MITRAL VALVE: Normal mobility and thickness. No evidence of mitralvalve stenosis. There is no mitral annular calcification. [...] Area (VTI): 2.12 cm2, 2.12 cm2 Deceleration Highland: Pressure Half-Time: Peak Velocity(Antegrade Flow): 1.47 m/s [...] 18:22 Dictated By: Shana Cerrato M.D. Signed By:02/19/251822 DD/ 21 TD/TT: Furnace Firer: us Generic External Data Provider [facility] IMAGING Final Result * SEGMENTAL BLOOD PRESSURE (02/18/2025 8:41 AM EDT) Anatomical Region Laterality Modality Radiographic Devika ging 02/18/2025 8:41 AM EDT Narrative 02/23/2025 12:52 [place] [address] Cardiology Report Signed Patient: KEL CASTILLO Jr. MR#: [id number] : 1955 Acct:[id number] Age/Sex: 69 / M ADM Date: 02/18/25 Loc: CARD Attending Dr: Sarah Padilla M.D. Ordering Physician: Sarah Padilla M.D. Date of Service: 02/18/25 Procedure(s): CA segmental UE or LE LEENA Accession Number(s): [id number] cc: Susan Watson ASSISTED LIVING MANAGER; Sarah Padilla M.D. 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 Recommend further imaging with CT or invasive angiography. Electronically Signed On 02-23-2025 12:52:03 EDT by SARAH PADILLA Dictated By: Sarah Padilla M.D. Signed By: 02/23/25 1252 02/23/25 1252 DD/ 0841 TD/TT: Furnace Firer: Procedure Note Radiology, Radiologist, - 02/23/2025 [place] [address] Cardiology Report Signed Patient: KLE CASTILLO Jr.MR#: [id number] : 1955cct:[id number] Age/Sex: 69 / MADM Date: 02/18/25 Loc: CARD Attending Dr: Sarah Padilla M.D. Ordering Physician: Sarah Padilla M.D. Date of Service: 02/18/25 Procedure(s): CA segmental UE or LE LEENA Accession Number(s): [id number] cc: Susan Watson ASSISTED LIVING MANAGER; Sarah Padilla M.D. 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 Recommend further imaging with CT or invasive angiography. Electronically Signed On 02-23-2025 12:52:03 EDT by SARAH PADILLA Dictated By: Sarah Padilla M.D. Signed By:02/23/25 1252 02/23/25 1252 DD/ 0841 TD/TT: Furnace Firer: Generic External Data Provider IMG XR PROCEDURES Final Result * Colonoscopy (06/21/2021 12:00 PM EST) Anatomical Region Laterality Modality Endoscopy 06/21/2021 12:0 0 PM EST Narrative 06/21/2021 12:00 PM EST PERFORMED AT [facility] LOCATION:[id number] Procedure Note CONVERSION, GENERIC - 12/26/2022 PERFORMED AT [facility] LOCATION:[id number] Pop Borrego DO ENDOSCOPY PROCEDURE ORDERABLES Final Result from Last 3 Months or Most Recently Relevant to Health Maintenance Insurance [employer] Care Teams Contact Lens Manufacturer Relationship Specialty Start Date End Date Jose Beckford MD PCP - General Family Medicine 06/09/24 Cherelle Coronado NP Nurse Practitioner Family Medicine 06/09/24
--- OUTSIDE RECORDS SUMMARY | 2025-04-27 07:45 | XMS_ITS | Encounter Summary ---
Author Organization [facility] Address [address] [place] [address] Care Team Providers Care Die Sinker Name Role Phone Shaikh ION Grimes Primary Care Provider [phone] Shaikh ION Grimes Unavailable [phone] Jose Beckford MD Primary Care Provider [phone] Cherelle Coronado NP Unavailable [phone] Vannessa Russell MA Unavailable [phone] Reason for Visit * Reason Comments Med Refill Encounter Details Date Type Department Care Team (Late st Contact Info) Description 03/22/2024 Refill [facility] [address] [place] [address] Shaikh Grimes MD [address] [place] [address] Recurrent major depression in partial remission Social [...] How often do you attend chur or advent services? Never 07/22/2023 Do you belong to [...] Recorded Patient Health Questionnaire-2 Score 0 03/11/2024 [facility] - Occupational Stress Questionnaire Answer Date [...] place to sleep or slept in a [place] health [place] facility (including now)? No 07/22/2023 Sex and Gender Information Value Date Recorded Sex Assigned at Not on file Legal Sex Male 10:05 PM EDT Gender Identity Not on file Sexual Orientation Not on file documented as of this encounter Plan of Treatment Not on file documented as of this encounter Visit Diagnoses Diagnosis Recurrent major depression in partial remission Major depressive disorder, recurrent episode, in partial or unspecified remission documented in this encounter Care Teams Die Sinker Relationship Specialty Start Date End Date Shaikh Grimes MD [address] [place] [address] PCP - General Internal Medicine 08/12/22 06/08/24 Shaikh Grimes MD [address] [place] [address] PCP - [employer] 10/11/23 08/11/24 Jose Beckford MD [address] [place] [address] PCP - General Family Medicine 06/09/24 Cherelle Coronado NP [address] [place] [address] Nurse Practitioner Family Medicine 06/09/24 Vannessa Russell, MINESH [address] [place] [address] Family Medicine 06/17/24 06/18/24 documented as of this encounter
--- OUTSIDE RECORDS SUMMARY | 2025-04-27 07:45 | XMS_ITS | Encounter Summary ---
Author Organization [facility] Address [address] [place] [address] Care Team Providers Care Last Sawyer Name Role Phone Susan Watson MD Primary Care Provider [phone] Reason for Referral * Imaging (Routine) - Pending Review Specialty Diagnoses / Procedures Referred By Contac t Referred To Contact Cardiology Diagnoses Acute HFrEF (heart failure with reduced ejection fraction) ([facility]) Procedures Transthoracic echo (TTE) limited Sarah Tolliver MD [address] [facility] [address] [facility] [place] [address] Phone: tel: fax: Referral ID Status Reason Start Date Expiration Date Visits Requested Visits Authorized [id number] Pending Review Perform Procedure 04/21/2025 04/21/2026 1 1 Encounter Details Date Type Department Care Team (Late st Contact Info) Description 04/21/2025 Telephone [facility] Heart at [facility] [address] [place] [address] Jonatan, MINESH Oliver Social History Tobacco Use Types Packs/Day Years Used Date Smoking Tobacco: Former Cigarettes Smokeless Tobacco: Never Alcohol Use Standard Drinks/Week Comments Not Currently 0 (1 standard drink = 0.6 oz pur e alcohol) PHQ-2 Answer Date Recorded Patient Health Questionnaire-2 Score 3 04/21/2025 [facility] Safety & Environment Answer Date Rec orded Fear of Current or Ex-Partner Not on file 02 / Emotionally Abused Not on file 10/03/2023 Physically [...] AM EDT documented as of this encounter Miscellaneous Notes * Telephone Encounter - Melody Cheung MA - 04/21/2025 1:27 PM EDT Images from the original note were not included. Regarding stress test result from 04/20/2025: Sarah Tolliver MD to Me (Selected Message) EE 04/20/25 5:25 PM Please let the patient and her family know that her stress test shows no ischemia; however his ejection fraction is slightly less than it was on echo. Please repeat a limited echocardiogram diagnosisreduced EF by stress test. Has he been seen by vascular surgery yet? Thank you Spoke with patient's daughter and informed her of message per Dr. Tolliver. He has an apt today at [facility] with vascular surgery. Order for limited echo faxed to [facility]. documented in this encounter Plan of Treatment Upcoming Encounters Date Type Department Care Team (Late st Contact Info) Description 05/10/2025 2:45 PM EDT Office Visit [facility] Heart at [facility] [address] [place] [address] Sarah Tolliver MD [address] [facility] [address] [facility] [place] [phone] 05/24/2025 1:30 PM EDT Pre-Admission Testing [facility] Pre-Anesthesia Clinic [address] [place] [phone] 06/07/2025 11:00 AM EDT Hospital Encounter [facility] Main Operating Room [address] [place] [phone] Chris Andre MD [address] [place] [phone] Lower extremity pain, bilateral; Severe claudication; Encounter for pre-operative examination 06/07/2025 11:00 AM EDT - 06/07/2025 2:00 PM EDT Surgery [facility] Main Operating Room [address] [place] [phone] Chris Andre MD [address] [place] [phone] CREATION, BYPASS, ARTERIAL, FEMORAL TO POPLITEAL, USING GRAFT [39595 (CPT )] Scheduled Orders Name Type Priority Associated Diagnoses Order Schedule Transthoracic echo (TTE) limited Echocardiography Routine Acute HFrEF (heart failure with reduced ejection fraction) (CMS/HCC) Expected: 04/21/2025 (Approximate), Expires: 04/21/2027 Scheduled Procedures Name Priority Associated Diagnoses Date/Ti me CREATION, BYPASS, ARTERIAL, FEMORAL TO POPLITEAL, USING GRAFT Lower extremity pain, bilateral Severe claudication Encounter for pre-operative examination 06/07/2025 11:00 AM EDT LOWER EXTREMITY INTERVENTION Lower extremity pain, bilateral Severe claudication Encounter for pre-operative examination 06/07/2025 11:00 AM EDT documented as of this encounter Visit Diagnoses Diagnosis Acute HFrEF (heart failure with reduced ejection fraction) (CMS/HCC)- Primary Lower extremity pain, bilateral Severe claudication Encounter for pre-operative examination Lower extremity pain, bilateral Severe claudication Encounter for pre-operative examination documented in this encounter Care Teams Last Sawyer Relationship Specialty Start Date End Date Susan Watson MD [address] [place] [address] PCP - General Nurse Practitioner 10/13/24 documented as of this encounter
--- OUTSIDE RECORDS SUMMARY | 2025-04-27 07:45 | XMS_ITS | Clinical Summary ---
Author Organization [employer] tem Address [id number] [address] [place] [address] Care Team Providers Care Child Development Consultant Name Role Phone Susan Watson APRN-CHILD AND ADOLESCENT PSYCHOLOGIST Primary Care Provider Allergies No known active [...] x3d, 10mg x4d 20 tablet 02/26/2024 Active albuterol (PROVENTIL HFA;VENTOLIN HFA) 90 mcg/actuation inhalerIndicatio ns:Acute bronchitis, unspecified organism Inhale 2 puffs every 4 (four) hours as needed for wheezing. 18 g 02/26/2024 Active baclofen (LIORESAL) 10 mg tablet Take 1 tablet (10 mg total) by mouth daily as needed. 12/24/2024 Active nitroglycerin (NITROSTAT) 0.[address] 1 tablet (0.4 mg total) under the tongue every 5 (five) minutes as needed for chest pain. 06/17/2024 Active Active Problems Problem Noted Date Diagnosed Date Cervical spondylosis 01/19/2025 Neck pain 11/19/2024 Frequent falls 06/17/2024 Functional gait abnormality 06/17/2024 Chronic obstructive pulmonary disease, unspecifi ed 03/11/2024 Chronic kidney disease, stage 4 (severe) 024 Closed nondisplaced fracture of greater tuberosity of left humerus with routine healing 09/19/2023 Coronary artery disease invo lving [place] coronary artery of [place] heart without angina pectoris 09/19/2023 EDITH (generalized [...] coronary disease, with CABG. Sees cardiology at [place]. Anxiety, HTN, CKD IIIb. PCP started albuterol [...] No allergies. Used to work in [employer], but minimal exposure. No other exposures. Lungs [...] Encounters Date Type Department Care Team Description 04/05/2025 1:20 PM EDT - 04/05/2025 11:59 PM EDT Hospital Encounter [facility] - Radiology [address] [place] [address] Other emphysema ([facility]) Discharge Disposition: Home 04/05/2025 Travel 04/01/2025 9:45 AM EDT - 04/01/2025 11:59 PM EDT Hospital Encounter [facility] - MRI Imaging [address] [place] [address] Shi Sauer PA-C Cervical spondylosis Discharge Disposition: Home 04/01/2025 Travel 03/10/2025 9:45 AM EDT Office Visit [facility] - Pain Management Clinic [address] [place] [address] Shi Sauer PA-C Cervical spondylosis (Primary Dx) 03/10/2025 Travel 02/19/2025 2:43 PM EDT - 02/19/2025 2:50 PM EDT Surgery [facility] - Pain Procedures [address] [place] [address] Abiodun Cherry MD INJECTION BLOCK NERVE MEDIAL BRANCH Bilat C 12/15, 01/16 [21724 (CPT )] 02/19/2025 1:47 PM EDT - 02/19/2025 11:59 PM EDT Hospital Encounter [facility] - Pain Procedures [address] [place] [address] Abiodun Cherry MD Discharge Disposition: Home 02/19/2025 8:30 AM EDT - 02/19/2025 1:46 PM EDT Hospital Encounter [facility] - Radiology [address] [place] [address] Abiodun Cherry MD Cervical spondylosis Discharge Disposition: Home 01/27/2025 10:00 AM EDT Office Visit [facility] - Pain Management Clinic [address] [place] [address] Shi Sauer PA-C Cervical spondylosis (Primary Dx) 01/27/2025 Travel from Last 3 Months Social History [...] got money to buy more. Never True 03/10/2025 Within the past 12 months th e food we bought just didn't last and we didn't have money to get more. Never True 03/10/2025 Purpose - Life Answer Date Recorded Purpose and direction in life Unknown Sex and Gender Information Value Date Recorded Sex Assigned at Not on file Legal Sex Male 11:04 AM EST Gender Identity Not on file Sexual Orientation Not on file Last Filed Vital Signs Vital Sign Reading Time Taken Comments Blood Pressure 123/54 03/10/2025 9:53 AM EDT Pulse 51 03/10/2025 9:53 AM EDT Temperature 36.2 C (97.2 F) 02/19/2025 1:56 PM EDT Respiratory Rate 18 03/10/2025 9:53 AM EDT Oxygen Saturation 100% 03/10/2025 9:53 AM EDT Inhaled Oxygen Concentration - - Weight 73.9 kg (163 lb) 03/10/2025 9:53 AM EDT Height 165.1 cm (5' 5 ) 03/10/2025 9:53 AM EDT Body Mass Index 27.12 03/10/2025 9:53 AM EDT Plan of Treatment Health Maintenance Due Date Last Done Comments Tobacco Counseling 1955 Depression Screening 1965 Adult BMI Follow Up Plan 1971 DTaP,Tdap and Td Vaccines (1 - Tdap) 1972 Zoster (Shingles) Vaccine (1 of 2) 2003 Fall Risk Screening 2018 COVID-19 Vaccine ( season) 2025 08/06/2021, 11/08/2020, 10/19/2020 Influenza Vaccine 04/12/2025 05/23/2021, 08/03/2020 Statin Use: Cardiovascular 03/01/2026 Adult BMI Screening 03/10/2026 03/10/2025 Tobacco Screening 03/10/2026 03/10/2025 Abdominal Aortic Aneurysm (AAA) Screen Completed Medical Devices Not on file Procedures Procedure Name Priority Date/Time Associated Diagnosis Comments XR CHEST 2 VWS Routine 04/05/2025 1:35 PM EDT Other emphysema (CMS-HCC) MR CERVICAL SPINE WO CONT Routine 04/01/2025 10:20 AM EDT Cervical spondylosis FL FLUOROSCOPY UP TO 1 HOUR Routine 02/19/2025 2:29 PM EDT Cervical spondylosis GA INJ DX/THER AGNT PARAVERT FACET JOINT,IMG GUIDE,CERV/THORAC, 1ST LEVEL 02/19/2025 2:23 PM EDT Cervical spondylosis Special Needs Plavix - [facility] from Last 3 Months Results * X-ray chest 2 views (04/05/2025 1:35 PM EDT) Anatomical Region Laterality Modality Body, Chest N/A Computed Radiogr aphy 04/05/2025 2:39 PM EDT Narrative 04/05/2025 2:41 PM EDT HISTORY: Other emphysema (CMS-HCC) COMPARISON: 02/26/2024 TECHNIQUE: PA and lateral views of the chest. FINDINGS: Unchanged cardiopericardial silhouette. Streaky opacities right lower lung potentially atelectasis or scarring. Volume loss right lung. No dense consolidation. No pneumothorax. No pleural effusion. IMPRESSION: Chronic lung disease without definite acute pulmonary process. Finalized by Roc Valverde MD on 04/05/2025 2:41 PM Procedure Note Roc Valverde MD - 04/05/2025 HISTORY: Other emphysema (CMS-HCC) COMPARISON: 02/26/2024 TECHNIQUE: PA and lateral views of the chest. FINDINGS: Unchanged cardiopericardial silhouette. Streaky opacities right lower lungpotentially atelectasis or scarring. Volume loss right lung. No denseconsolidation. No pneumothorax. No pleural effusion. IMPRESSION: Chronic lung disease without definite acute pulmonary process. Finalized by Roc Valverde MD on 04/05/2025 2:41 PM us Michael Gant MD IMG DIAGNOSTIC IMAGING ORDERAB LES Final Result * MR cervical spine without contrast (04/01/2025 10:20 AM EDT) Anatomical Region Laterality Modality MSK, Neuro, Spine, C-spine, Spine Covera N/A Magnetic Resonance 04/03/2025 11:5 9 AM EDT Narrative 04/03/2025 12:02 PM EDT HISTORY: A 69-year-old male with a history [...] Kana Swain MD on 04/03/2025 12:02 PM Procedure Note Kana Swain MD - 04/03/2025 HISTORY: A 69-year-old male with a history of the chronic neck pain. TECHNIQUE: Multiplanar and multisequence MRI examination of the cervicalspine is performed. COMPARISON: Comparison is made with the plain film radiographs of thecervical spine of 01/11/2025. FINDINGS: The vertebral heights are normal. There are severe discdegenerative changes at C5-C6 and C6-C7. There is a heterogeneous marrowsignal from degenerative arthritis. No acute bony pathology seen. There isloss of normal cervical lordosis but no spondylolisthesis is identified.No significant prevertebral soft tissue abnormality seen. At C2-C3, C3-C4 and C4-C5, there is no evidence of disc herniation, spinalstenosis or narrowing of the neural foramina. At C5-C6 and C6-C7, there are severe disc degenerative changes. Associateddisc bulging is seen.. Moderate degree of spinal stenosis and narrowing ofthe neural foramina are seen at these levels. Facet arthropathy seen atthese levels. At C7-T1, there is no evidence of disc herniation, spinal stenosis ornarrowing of the neural foramina. Cervical spinal cord is normal in morphology and signal intensity. Noevidence of cord edema or myelomalacia. IMPRESSION: * Severe disc degenerative disease and facet arthropathy at C5-C6 andC6-C7 with moderate degree of spinal stenosis and narrowing of the neuralforamina. Associated minimal disc bulging is seen at these levels. * No evidence of disc herniation or spinal stenosis at other levels inthe cervical region. * No evidence of cord edema or myelomalacia. Finalized by Kana Swain MD on 04/03/2025 12:02 PM Shi Sauer PA-C IMG MRI ORDERABLES Final Re sult * Fluoroscopy less than one hour (02/19/2025 2:29 PM EDT) Narrative SYSTEMGENERATED, DOCUMENTATION - 02/19/2025 2:29 PM EDT No Reading Required. This procedure does not require a formal dictation. Non-Radiologist provider performed procedures can be reviewed under Post-Op, Procedure or Progress notes. For full report details, please reach out to your physician. Effective 12/27/2020 this image will be visible to you in MyChart. Abiodun Cehrry MD IMG FLUOROSCOPY ORDERABLES Fi nal Result from Last 3 Months Insurance [employer] Care Teams Child Development Consultant Relationship Specialty Start Date End Date Susan Watson, X RAY EQUIPMENT SERVICER-CHILD AND ADOLESCENT PSYCHOLOGIST PCP - General Nurse Practitioner 01/11/25
--- OUTSIDE RECORDS SUMMARY | 2025-04-27 07:45 | XMS_ITS | Clinical Summary ---
Author Organization [facility] Address [address] [place] [address] Care Team Providers Care Restaurant Line Server Name Role Phone Susan Watson MD Primary Care Provider Allergies Active Allergy Reactions Criticality Noted Date Comments Penicillins Diarrhea 04/08/2025 Medications albuterol 90 mcg/actuation inhaler INHALE 1 PUFF BY MOUTH EVERY 4 HOURS NEEDED 2 Active amLODIPine (Norvasc) 5 mg tablet Take 1 tablet by mouth in the morning. Active aspirin 81 mg EC tablet Take 1 tablet by mouth in the morning. Active atorvastatin (Lipitor) 80 mg tablet Take 80 mg by mouth at bedtime. 5 Active buPROPion XL (Wellbutrin XL) 300 mg [...] 1 tablet by sublingual route as needed. 4 Active sertraline (Zoloft) 100 mg tablet Take 2 tablets by mouth in the morning. Active traZODone (Desyrel) 100 mg tablet Take 1 tablet by mouth at bedtime. Active OLANZapine (ZyPREXA) 5 mg tablet Take 5 mg by mouth at bedtime. Active clopidogrel (Plavix) 75 mg tablet Take 75 mg by mouth in the morning. 5 05/30/20 25 Active ferrous sulfate 325 (65 Fe) MG tablet Take 325 mg by mouth in the morning. 5 05/30/20 25 Active metoprolol tartrate (Lopressor) 50 mg tablet Take 50 mg by mouth two times daily. Active Active Problems Problem Noted Date Diagnosed Date Severe claudication 04/23/2025 Encounter for pre-operative examination 04/23/20 25 Lower extremity pain, bilateral 03/11/2025 Frequent falls 06/17/2024 Functional gait abnormality 06/17/2024 [...] coronary disease, with CABG. Sees cardiology at [place]. Anxiety, HTN, CKD IIIb. PCP started albuterol [...] tis 07/18/2012 Migraine 07/18/2012 Mixed hyperlipidemia 07/18/2012 Encounters Date Type Department Care Team Description 04/23/2025 Orders Only [facility] [address] [place] [address] Jessica Fatima, [place] Severe claudication (Primary Dx); Encounter for pre-operative examination 04/23/2025 Orders Only [facility] Vascular and Endovascular Surgery [address] [place] [address] Jessica Fatima, MINESH Severe claudication (Primary Dx); Lower extremity pain, bilateral; Encounter for pre-operative examination 04/21/2025 3:15 PM EDT Office Visit [facility] Vascular and Endovascular Surgery [address] [place] [address] Chris Andre MD 04/21/2025 Telephone [facility] [address] [place] [address] Melody Cheung MA 04/20/2025 Orders Only [facility] [address] [place] [address] Elza Butt MA 04/19/2025 Telephone [facility] [address] [place] [address] Kya Sheppard MA 04/15/2025 - 04/15/2025 11:59 PM EDT Hospital Encounter [facility] Radiology External Films [address] [place] [address] Discharge Disposition: Home or Self Care () 04/08/2025 9:30 AM EDT - 04/08/2025 12:30 PM EDT Surgery [facility] Heart [facility] [place] [facility] [address] [place] [address] Sarah Tolliver MD Aortogram [[id number]] 04/08/2025 7:16 AM EDT - 04/08/2025 6:22 PM EDT Hospital Encounter [facility] [address] [place] [address] Sarah Tolliver MD Lower extremity pain, bilateral Discharge Disposition: Home or Self Care () 04/08/2025 Orders Only [facility] [address] [place] [address] Val Burch RN Chronic kidney disease, stage 4 (severe) (CMS/[facility]) (Primary Dx) 04/08/2025 Orders Only [facility] [address] [place] [address] Kya Sheppard MA Preop examination (Primary Dx); Coronary artery disease due to lipid rich plaque 04/08/2025 Travel 04/01/2025 Travel 03/11/2025 Orders Only [facility] [address] [place] [address] Melody Cheung MA Lower extremity pain, bilateral (Primary Dx) 03/11/2025 Telephone [facility] [address] [place] [address] Melody Cheung MA 03/08/2025 Orders Only [facility] [address] [place] [address] Kya Sheppard MA 02/24/2025 Telephone [facility] [address] [place] [address] Melody Cheung MA 02/22/2025 Telephone [facility] [address] [place] [facility] [place] [address] Melody Cheung MA from Last 3 Months Family History Medical History Relation Name Comments Diabetes Mother Relation Name Status Comments Mother Social History Tobacco Use Types Packs/Day Years Used Date Smoking Tobacco: Former Cigarettes Smokeless Tobacco: Never Tobacco Cessation:Counseling Given: Not Answered Alcohol Use Standard Drinks/Week Comments Not Currently 0 (1 standard drink = 0.6 oz pur e alcohol) PHQ-2 Answer Date Recorded Patient Health Questionnaire-2 Score 3 04/21/2025 OR Safety & Environment Answer Date Rec orded [...] Heterosexual or Straight 03/13 7:15 AM EDT Last Filed Vital Signs Vital Sign Reading Time Taken Comments Blood Pressure 117/61 04/21/2025 3:09 PM EDT Pulse 53 04/21/2025 3:09 PM EDT Temperature 36.6 C (97.8 F) 04/21/2025 3:09 PM EDT Respiratory Rate 18 04/08/2025 6:00 PM EDT Oxygen Saturation 98% 04/21/2025 3:09 PM EDT Inhaled Oxygen Concentration - - Weight 72.6 kg (160 lb) 04/21/2025 3:09 PM EDT Height 167.6 cm (5' 6 ) 04/21/2025 3:09 PM EDT Body Mass Index 25.82 04/21/2025 3:09 PM EDT Plan of Treatment Upcoming Encounters Date Type Department Care Team (Late st Contact Info) Description 05/10/2025 2:45 PM EDT Office Visit [facility] Heart [facility] [address] [place] [address] Sarah Tolliver MD [address] [facility] [place] [address] 05/24/2025 1:30 PM EDT Pre-Admission Testing [facility] Pre-Anesthesia Clinic [address] [place] [address] 06/07/2025 11:00 AM EDT Hospital Encounter [facility] Main Operating Room [address] [place] [address] Chris Andre MD [address] [place], [place] [address] [address] Lower extremity pain, bilateral; Severe claudication; Encounter for pre-operative examination 06/07/2025 11:00 AM EDT - 06/07/2025 2:00 PM EDT Surgery [facility] Main Operating Room [address] [place] [address] Chris Andre MD [address] [place] [phone] CREATION, BYPASS, ARTERIAL, FEMORAL TO POPLITEAL, USING GRAFT [03572 (CPT )] Scheduled Procedures Name Priority Associated Diagnoses Date/Ti me CREATION, BYPASS, ARTERIAL, FEMORAL TO POPLITEAL, USING GRAFT Lower extremity pain, bilateral Severe claudication Encounter for pre-operative examination 06/07/2025 11:00 AM EDT LOWER EXTREMITY INTERVENTION Lower extremity pain, bilateral Severe claudication Encounter for pre-operative examination 06/07/2025 11:00 AM EDT Health Maintenance Due Date Last Done Comments CT Colonography 1953 FIT-DNA 1953 FIT 1953 FOBT 1955 Medicare Annual Wellness (AWV) 1955 Sigmoidoscopy 1955 Adult Tetanus 1975 Zoster Vaccines (1 of 2) 2003 COVID-19 Vaccine (4 - 2024-2 6 season) 2025 08/06/2021, 11/08/2020, 10/19/2020 Influenza Vaccine (#1) 2025 , 08/03/2020 Depression Screening 04/21/2026 04/21/2025 Fall Risk Screening 04/21/2026 04/21/2025 Colonoscopy 06/21/2031 06/21/2021 Colorectal Cancer Screening 06/21/2031 [...] on patient's age to complete this topic Procedures Procedure Name Priority Date/Time Associated Diagnosis Comments LEXISCAN STRESS MYOCARDIAL PERFUSION IMAGING Routine 04/20/2025 3:[address] TRANSFER OF OUTSIDE FILMS Routine 04/15/2025 12:00 AM EDT LOWER EXTREMITY ANGIOGRAM Routine 04/08/2025 12:52 PM EDT Lower extremity pain, bilateral AORTOGRAM Routine 04/08/2025 12:52 PM EDT Lower extremity pain, bilateral BASIC METABOLIC PANEL STAT 04/08/2025 8:14 AM EDT CBC STAT 04/08/2025 8:14 AM EDT ECG 12-LEAD Routine 04/08/2025 7:51 AM EDT from Last 3 Months Results * Lexiscan Stress Myocardial Perfusion Imaging (04/20/2025 3:22 PM EDT) Anatomical Region Laterality Modality Other Historical Provider CV STRESS PROCEDURES Hailey l Result * CT transfer of outside films (04/15/2025 12:00 AM EDT) Narrative IMAGING - 04/15/2025 9:57 AM EDT This order has been auto-finalized and does not contain a result. Chris Andre MD IMG CT PROCEDURES Final Result IMAGING * AORTOGRAM, LOWER EXTREMITY ANGIOGRAM (04/08/2025 12:52 PM EDT) Anatomical Region Laterality Modality Other Addenda Addendum by Sarah Tolliver MD on 04/08/2025 6:28 PM EDT Cardiovascular Laboratory Report FINAL IMPRESSIONS: Severe, heavily calcific, multilevel peripheral arterial disease involving both lower extremities Severe, heavily calcific disease of the common, external, and internal iliac arteries bilaterally Long segment occlusion of the right superficial femoral artery and short segment occlusion of the left superficial femoral artery Heavily calcific severe disease of the right common femoral artery Heavily calcific plaque disease of the infrarenal aorta There is three-vessel runoff bilaterally with diffuse disease of the posterior tibial and peroneal arteries proximal RECOMMENDATIONS: Given the severity, diffuse nature, and complexity of the peripheral arterial disease will refer the patient to our vascular surgical colleagues for potential aorto-bifemoral bypass +/- common femoral artery endarterectomy He will need a stress test for preoperative risk stratification prior to any vascular surgery Close monitoring for development of contrast-induced nephropathy given the patient's baseline serum creatinine; he will receive adequate IV fluid hydration and a basic metabolic panel will be checked in 48-72 hours Aggressive cardiovascular is factor modification Optimal medical therapy for vascular disease should include antiplatelet therapy, moderate high intensity statin therapy, and consideration for low-dose Xarelto based on the COMPASS and VOYAGER PAD trials Follow-up with Dr. Tolliver in the next 2 to 4 weeks PROCEDURES: Ultrasound-guided access to the right common femoral artery, limited femoral angiography, angiography of the right lower extremity, placement in the abdominal aorta, abdominal aortography, catheter placement in the left external iliac artery, angiography of the left lower extremity METHODS: After risks, benefits, and alternatives were explained, written informed consent was obtained. The patient was prepped and draped in usual sterile fashion over both groins. Using 1% lidocaine solution, local infiltration anesthesia was achieved. Using a modified Seldinger technique, a micropuncture kit, and under ultrasound guidance, access to the right common femoral artery was obtained. A 6 [place]i 11 cm sheath was exchanged and without difficulty. Angiography via the 6 [place] sheath was performed. Angiography via the SideArm of the sheath was performed of the right lower extremity. Angiography of the right iliac system was performed under digital subtraction. A 5 [place] Uniflush catheter was advanced in and placed in the abdominal aorta.The aortic bifurcation was crossed using combination of the Uniflush catheter and a straight stiff Glidewire. The catheter was placed at the level of the left femoral head. Angiography of the left lower extremity was performed. The urine flush was retracted to the level of the left common iliac artery. Angiography under digital subtraction was performed. The catheter was then retracted into the abdominal aorta; angiography of the abdominal aorta was performed in the left lateral position. After reviewing the images, it was elected to conclude the procedure. All catheters were removed. The femoral sheath was to be removed with application of manual pressure to achieve hemostasis. Overall the patient tolerated the procedure well. There were no indications. He was to be transferred to the holding area in stable condition. FINDINGS: Hemodynamics: AO 125/75 [89] ABDOMINAL AORTOGRAPHY: This reveals heavily calcific plaque in the infrarenal portion of the abdominal aorta. RIGHT LOWER EXTREMITY ANGIOGRAPHY: Common iliac artery: This shows a heavily calcific 80% stenosis in the midportion of the vessel. External iliac artery: This shows a 90% heavily calcific stenosis at the bifurcation with anterior iliac artery. Internal iliac artery:This shows subtotal occlusion of the proximal to midportion of the vessel Common femoral artery: This reveals a 90% heavily calcific stenosis involving the mid to distal third of the common femoral artery. Superficial femoral artery: This is occluded from the proximal portion to the adductor canal. There is heavy calcification throughout the length of the vessel. There is evidence of collateralization from the profunda femoral artery. Profunda femoral artery: This is patent and provides collaterals to the occluded superficial femoral artery. Popliteal artery: This is patent Below-knee vessels: There is three-vessel runoff below the knee.The proximal portions of the procedure tibial and peroneal artery show diffuse disease. LEFT LOWER EXTREMITY ANGIOGRAPHY: Common iliac artery: This shows sequential 80% heavily calcific focal stenoses in the proximal to midportion of the vessel. External iliac artery: This shows a 50 to 60% heavily calcific stenosis in the distal third. Internal iliac artery: This appears to be subtotally occluded. Common femoral artery: This shows a 60% heavily calcific eccentric stenosis in the Midportion of the vessel. Superficial femoral artery: This shows heavily calcific plaque throughout. There is an ostial 70 to 80% stenosis.There is a short segment occlusion in the midportion of the vessel. There is reconstitution at the level of the adductor canal via collaterals from the profunda femoral artery Profundofemoral artery: This is patent Popliteal artery: This is patent. Below-knee vessels: There is three-vessel runoff. There appears to be diffuse disease within the proximal portion of the peroneal artery. INDICATIONS: Lifestyle limiting claudication, abnormal ankle-brachial indices and segmental leg pressures, history of peripheral artery disease Non Coronary Arteries Findings Diagnostic Left Common Iliac: Prox L [place] lesion is 80% stenosed. Mid L [place] to Dist L [place] lesion is 70% stenosed. Left Superficial Femoral: Dist L SFA filled by collaterals from Mid L PFA. Prox L SFA to Mid L SFA lesion is 100% stenosed. Left Peroneal: Prox L Peroneal lesion is 50% stenosed. Right Common Iliac: Prox R [place] to Mid R [place] lesion is 80% stenosed. Dist R [place] lesion is 90% stenosed. Right Internal Iliac: Prox R IIA to Mid R IIA lesion is 99% stenosed. Right Common Femoral: Mid R PEARL TECHNICIAN lesion is 95% stenosed. Right Superficial Femoral: Dist R SFA filled by collaterals from Dist R PFA. Prox R SFA to Mid R SFA lesion is 100% stenosed. Right Posterior Tibial: Prox R VOLCANOLOGIST lesion is 50% stenosed. Right Peroneal: Prox R Peroneal lesion is 50% stenosed. Intervention No interventions have been documented. Sarah Tolliver MD CV INVASIVE VASCULAR PROCEDURES Edited Result - Final * (ABNORMAL) CBC (04/08/2025 8:14 AM EDT) Auto WBC 6.07 4.00 - 10.60 10*3/uL 04/08/2025 8:28 AM EDT [facility] ([facility]) RBC 3.69(L) 4.20 - 5.70 10*6/uL 04/08/2025 8:28 AM EDT [facility] ([facility]) Hemoglobin 11.3(L) 13.0 - 17.0 g/dL 04/08/2025 8:28 AM EDT [facility] ([facility]) Hematocrit 34.1(L) 39.0 - 50.0 % 04/08/2025 8:28 AM EDT [facility] ([facility]) MCV 92.4 82.0 - 98.0 fL 04/08/2025 8:28 AM EDT [facility] ([facility]) MCH 30.6 27.0 - 33.0 pg 04/08/2025 8:28 AM EDT [facility] ([facility]) MCHC 33.1 32.0 - 35.0 g/dL 04/08/2025 8:28 AM EDT [facility] ([facility]) RDW 14.6 11.5 - 15.0 % 04/08/2025 8:28 AM EDT [facility] ([facility]) Platelets 173 150 - 400 10*3/uL 04/08/2025 8:28 AM T [facility] ([facility]) Blood Venous blood specimen / Unknown Venipuncture / Unknown 04/08/2025 8:14 AM EDT 04/08/2025 8:14 AM EDT Sarah Tolliver MD LAB BLOOD ORDERABLES Final Resu lt [facility] ([facility]) [address] [place] [address] * (ABNORMAL) Basic metabolic panel (04/08/2025 8:14 AM EDT) Sodium 140 136 - 145 mmol/L 04/08/2025 8:44 AM EDT [facility] ([facility]) Potassium 4.4 3.5 - 5.1 mmol/L 04/08/2025 8:44 AM EDT [facility] ([facility]) Chloride 106 98 - 107 mmol/L 04/08/2025 8:44 AM EDT [facility] ([facility]) CO2 28 21 - 31 mmol/L 04/08/2025 8:44 AM EDT [facility] ([facility]) BUN 34(H) 7 - 25 mg/dL 04/08/2025 8:44 AM EDT [facility] ([facility]) Creatinine 2.18(H) 0.70 - 1.30 mg/dL 04/08/2025 8:44 AM EDT [facility] ([facility]) Glucose 102(H) 70 - 100 mg/dL 04/08/2025 8:44 AM EDT [facility] ([facility]) Calcium 9.3 8.6 - 10.3 mg/dL 04/08/2025 8:44 AM EDT [facility] ([facility]) Anion Gap 10 7 - 20 mmol/L 04/08/2025 8:44 AM EDT [facility] ([facility]) eGFR 31.6(L) >60.0 mL/min/1. 73m*2 04/08/2025 8:44 AM EDT [facility] ([facility]) Comment:The [facility] s estimated glomerular filtration rate (eGFR) will no longer include consideration of race in its calculation. The [employer] s eGFR Task Force developed new recommendations for [...] disproportionately affect any one group of individuals. BUN/Creatinine Ratio 15.6 03/13 8:44 AM EDT [facility] ([place]) Blood Venous blood specimen / Unknown Venipuncture / Unknown 04/08/2025 8:14 AM EDT 04/08/2025 8:14 AM EDT Sarah Tolliver MD LAB BLOOD ORDERABLES Final Resu lt [facility] ([facility]) [address] [place] [address] * ECG 12 lead (04/08/2025 7:51 AM EDT) Ventricular Rate 60 BPM GE MUSE Atrial Rate 60 BPM GE MUSE SD Interval 180 ms GE MUSE QRS DURATION 116 ms GE MUSE QT Interval 502 ms GE MUSE QTC CALCULATION(BAZE TT) 502 ms GE MUSE P [place] 28 degrees GE MUSE R-[place] -26 degrees GE MUSE T Wave [place] 79 degrees GE MUSE 04/08/2025 7:50 AM EDT 04/08/2025 10:41 AM EDT Impressions GE MUSE - 04/08/2025 10:41 AM EDT Sinus bradycardia with occasional Premature ventricular complexes Nonspecific ST and T wave abnormality Prolonged QT Abnormal ECG Confirmed by Saqib Saldana ([id number]) on 04/08/2025 10:41:34 AM Narrative Procedure Note Jessie Cope MD - 04/08/2025 IMPRESSION: Sinus bradycardia with occasional Premature ventricular complexes Nonspecific ST and T wave abnormality Prolonged QT Abnormal ECG Confirmed by Saqib Saldana ([id number]) on 04/08/2025 10:41:34 AM Sarah Tolliver MD ECG ORDERABLES Final Result GE MUSE from Last 3 Months Insurance [employer] Care Teams Restaurant Line Server Relationship Specialty Start Date End Date Susan Watson MD [facility] [place] [address] PCP - General Nurse Practitioner 10/13/24
--- OUTSIDE RECORDS SUMMARY | 2025-04-27 07:45 | XMS_ITS | Encounter Summary ---
Author Organization [facility] Address [address] [place] [address] Care Team Providers Care Size Worker Name Role Phone Susan Watson MD Primary Care Provider Encounter Details Date Type Department Care Team ([facility] st Contact Info) Description 04/19/2025 Telephone [facility] [address] [place] [address] Kya Sheppard MA Social History Tobacco Use Types Packs/Day Years [...] encounter Miscellaneous Notes * Telephone Encounter - Kya Sheppard MA - 04/19/2025 2:04 PM EDT Pt calling about bmp results, they are in media please advise documented in this encounter Plan of Treatment Upcoming Encounters Date Type Department Care Team (Late st Contact Info) Description 05/10/2025 2:45 PM EDT Office Visit [facility] [address] [place] [address] Sarah Tolliver MD [address] [facility] [place] [address] 05/24/2025 1:30 PM EDT Pre-Admission Testing [facility] Pre-Anesthesia Clinic [address] [place] [address] 06/07/2025 11:00 AM EDT Hospital Encounter [facility] Main Operating Room [address] [place] [address] Chris Andre MD [address] [place] [address] Lower extremity pain, bilateral; Severe claudication; Encounter for pre-operative examination 06/07/2025 11:00 AM EDT - 06/07/2025 2:00 PM EDT Surgery [facility] Main Operating Room [address] [place] [address] Chris Andre MD [address] [facility] [place] [address] CREATION, BYPASS, ARTERIAL, FEMORAL TO POPLITEAL, USING GRAFT [[id number] (CPT )] Scheduled Procedures Name Priority Associated [...] on filedocumented in this encounter Care Teams Size Worker Relationship Specialty Start Date End Date Susan Watson MD [address] [place] [address] PCP - General Nurse Practitioner 10/13/24 documented as of this encounter
--- OUTSIDE RECORDS SUMMARY | 2025-04-27 07:45 | XMS_ITS | Patient Health Record ---
Author Organization [facility] Address [address] [place] [address] Support Name Relationship Address Phone LISETH GOLDSTEIN Emergency Contact [address] [place], [place] [id number] KEL CASTILLO Guarantor Unknown [phone] Allergies No Known Allergies Reason For Referral No Information Social History Tobacco Use: Social History Observation Description Date Details (start date - stop date) Never Smoker NA - NA Smoking History Question Answer Notes Smoking Status NonSmoker Problems Problem Type SNOMED Code ICD Code Onset Dates Problem Status W/U Status Risk Notes Problem 119498179 Other nondisplaced fracture of upper end of left humerus, subsequent encounter for fracture with routine healing (S42.295D) Active confirmed Problem 761905795 Closed nondisplaced fracture of greater tuberosity of left humerus, initial encounter (S42.255A) Active confirmed Problem 660434102 Closed nondisplaced fracture of greater tuberosity of left humerus with routine healing (S42.255D) Active confirmed Problem [id number] Traumatic complete tear of left rotator cuff, initial encounter (S46.012A) Active confirmed Plan Of Treatment Pending Test Test Name Order Date MRI : Shoulder W/O Contrast Left - 08406 08/26/2023 DME - Arm Sling OTS 07/15/2023 Insurance Providers Payer Name Payer Address Payer Phone Subscriber Number Group Number Insured Name Patient Relationship to Insured Coverage Start Date Coverage End Date [facility] [address] [place] [phone] [id number] KEL CASTILLO Self - patient is the insured [place] [place] [address] [id number] KEL CASTILLO Self - patient is the insured Medical (General) History Medical History History ICD Code Asthma/COPD Lung Disease Lung cancer Heart problems: High Blood Pressure Depression Mental Illness: Anxiety Kidney trouble Sleep apnea CPAP Machine: Yes Surgical History Surgery Date(Month/Year) lung-right lower lobe 1996 Triple bypass 2006
--- OUTSIDE RECORDS SUMMARY | 2025-04-27 07:45 | XMS_ITS | Encounter Summary ---
Author Organization [facility] Address [address] [place] [address] Care Team Providers Care Marine Electrician Name Role Phone Shaikh ION Grimes Primary Care Provider [phone] Shaikh ION Grimes Unavailable [phone] Jose Beckford MD Primary Care Provider [phone] Cherelle Coronado NP Unavailable [phone] Vannessa Russell MA Unavailable [phone] Encounter Details Date Type Department Care Team (Late st Contact Info) Description 03/11/2024 Orders Only [facility] [address] [place] [address] Shaikh Grimes MD [address] [place] [address] Social History Tobacco Use Types Packs/Day Years [...] How often do you attend chur or druze services? Never 07/22/2023 Do you belong to [...] Recorded Patient Health Questionnaire-2 Score 0 03/11/2024 [facility] - Occupational [...] place to sleep or slept in a alf (including now)? No 07/22/2023 Sex and Gender [...] on filedocumented in this encounter Care Teams Marine Electrician Relationship Specialty Start Date End Date Shaikh Grimes MD [address] [place] [address] PCP - General Internal Medicine 08/12/22 06/08/24 Shaikh Grimes MD [address] [place] [address] PCP - [employer]et[employer] 10/11/23 08/11/24 Jose Beckford MD [address] [place] [address] PCP - General Family Medicine 06/09/24 Cherelle Coronado NP [address] [place] [address] Nurse Practitioner Family Medicine 06/09/24 Vannessa Russell MA [address] [place] [address] Family Medicine 06/17/24 06/18/24 documented as of this encounter
--- OUTSIDE RECORDS SUMMARY | 2025-04-27 07:45 | XMS_ITS | Encounter Summary ---
Author Organization [facility] Address [address] [place] [address] Care Team Providers Care Blankbook Stitching Machine Operator Name Role Phone Jose Beckford MD Primary Care Provider [phone] Cherelle Coronado NP Unavailable [phone] Encounter Details Date Type Department Care Team ([facility] st Contact Info) Description 02/24/2025 Abstract [facility] [place] [facility] [address] [facility] [address] Susan Watson NP [address] [facility] [place] [address] Social History Tobacco Use Types Packs/Day Years [...] 02/28/2025 How often do you attend chur or orthodox services? Never 02/28/2025 Do you belong to any clubs o r organizations such as sikhism groups, unions, fraternal or athletic groups, or [...] Recorded Patient Health Questionnaire-2 Score 0 03/11/2024 [facility] Occupat ional Health - Occupational [...] money to buy more. Never true 02/29/20 25 Within the past 12 months, t he [...] place to sleep or slept in a intermediate (including now)? No 07/22/2023 Housing Stability Vital Sign Answer Jassi e Recorded In the last 12 months, was t here a time when you were not able to pay the mortgage or rent on time? No 02/28/2025 In the past 12 months, how m any times have you moved where you were living? 0 02/28/2025 At any time in the past 12 m [facility], were you homeless or living in a intermediate (including now)? No 02/28/2025 Sex and Gender Information Value Date Recorded Sex Assigned at Not on file Legal Sex Male 10:05 PM EDT Gender Identity Not on file Sexual Orientation Not on file documented as of this encounter Plan of Treatment Not on file documented as of this encounter Visit Diagnoses Not on filedocumented in this encounter Care Teams Blankbook Stitching Machine Operator Relationship Specialty Start Date End Date Jose Beckford MD PCP - General Family Medicine 06/09/24 Cherelle Coronado NP Nurse Practitioner Family Medicine 06/09/24 documented as of this encounter
--- OUTSIDE RECORDS SUMMARY | 2025-04-27 07:45 | XMS_ITS | Encounter Summary ---
Author Organization [facility] Address [address] [place] [address] Care Team Providers Care Custom Shoe Designer And Maker Name Role Phone Thomas Hurtado MD Unavailable Susan Watson CNP Primary Care Provider [phone] Source Comments In the event this information is protected by the Federal Confidentiality of Alcohol and Drug AbusePatient Records regulations: The Federal rules restrict any use of the information to criminally investigate or prosecute any alcohol or drug abuse patient.[facility] Encounter Details Date Type Department Care Team (Late st Contact Info) Description 02/14/2022 Patient Msg Neurology [address] [place] [id number] Provider, Ccf Confirming Your Sleep Study Social History Tobacco Use Types Packs/Day Years Used Date Smoking Tobacco: Never Smokeless Tobacco: Current Chew PHQ-2 Answer Date Recorded PHQ-2 score 6 12/22/2021 Area Deprivation Index Answer Date Brandon rded National Score (1-100), lower number is lower ri sk 87 01/02/2022 State Score (1-10), lower number is lower risk N ot on file 01/02/2022 Data from: https://www.neighborhoodatlas.medicine.[facility].edu/. Last address used for calculation [address] [...] Care Team (Late st Contact Info) Description 04/29/2025 11:00 AM EDT Office Visit Neurology [address] [place] [address] Ebony Henderson [address] [place] [address] 6 month follow up documented as of this encounter Visit Diagnoses Not on filedocumented in this encounter Care Teams Custom Shoe Designer And Maker Relationship Specialty Start Date End Date Susan Watson, CHILDBIRTH AND INFANT CARE TEACHER [address] [place] [address] PCP - General Family Medicine 04/01/25 Thomas Hurtado MD [address] [facility] [place] [address] NI Referring Team Psychiatry 12/21/21 documented as of this encounter
--- OUTSIDE RECORDS SUMMARY | 2025-04-27 07:45 | XMS_ITS | Encounter Summary ---
Author Organization [facility] Address [address] [place] [address] Care Team Providers Care Oil Gas And Pipe Tester Name Role Phone Shaikh ION Grimes Primary Care Provider [phone] Shaikh ION Grimes Unavailable [phone] Jose Beckford MD Primary Care Provider [phone] Cherelle Coronado NP Unavailable Vannessa Russell MA Unavailable [phone] Reason for Visit * Reason Comments Med Refill Encounter Details Date Type Department Care Team (Late st Contact Info) Description 03/14/2024 Refill [facility] [place] [facility] [address] [place] [address] Shaikh Grimes MD [address] [place] [address] EDITH (generalized anxiety disorder) ; Recurrent major [...] often do you attend chur ch or evangelical services? Never 07/22/2023 Do you belong to [...] Recorded Patient Health Questionnaire-2 Score 0 03/11/2024 [facility] Occupat ional Health - Occupational Stress [...] in a custodial (including now)? No 07/22/2023 Sex and Gender [...] remission documented in this encounter Care Teams Oil Gas And Pipe Tester Relationship Specialty Start Date End Date Shaikh Grimes MD [address] [place] [address] PCP - General Internal Medicine 08/12/22 06/08/24 Shaikh Grimes MD [address] [place] [address] PCP - [employer]et[employer] 10/11/23 08/11/24 Jose Beckford MD [address] [place] [address] PCP - General Family Medicine 06/09/24 Cherelle Coronado NP [address] [place] [address] Nurse Practitioner Family Medicine 06/09/24 Vannessa Russell MA [address] [place] [address] Family Medicine 06/17/24 06/18/24 documented as of this encounter
--- OUTSIDE RECORDS SUMMARY | 2025-04-27 07:45 | XMS_ITS | Encounter Summary ---
Author Organization [facility] Address [address] [place] [address] Care Team Providers Care Sales Vendor Name Role Phone Jose Beckford MD Primary Care Provider [phone] Cherelle Coronado JEWEL STAKER Unavailable [phone] Encounter Details Date Type Department Care Team ([facility] st Contact Info) Description 01/12/2025 External Result Encounter [facility] [place] [facility] [address] [facility] [place] [address] Susan Watson NP [address] [place] [address] Social History Tobacco Use Types Packs/Day Years [...] often do you attend chur ch or pentecostal services? Never 07/22/2023 Do you belong to any clubs o r organizations such as religious groups, unions, fraternal or athletic groups, or [...] Recorded Patient Health Questionnaire-2 Score 0 03/11/2024 [facility] Answer Date Recorded [...] place to sleep or slept in a mcfp (including now)? No 07/22/2023 Sex and Gender Information Value Date Recorded Sex Assigned at Not on file Legal Sex Male 10:05 PM EDT Gender Identity Not on file Sexual Orientation Not on file documented as of this encounter Plan of Treatment Not on file documented as of this encounter Procedures Procedure Name Priority Date/Time Associated Diagnosis Comments XR CERVICAL SPINE 2-3 VIEWS 01/12/2025 12:58 AM EDT documented in this encounter Results * XR cervical spine 2 or 3 views (01/12/2025 12:58 AM EDT) Anatomical Region Laterality Modality Spine, C-spine Radiographic Devika ging 01/12/2025 12:5 8 AM EDT Narrative 01/12/2025 12:57 AM EDT THIS EXAM WAS PERFORMED AT [facility] XR SPINE CERVICAL 3 VWS OR LESS [...] - 01/12/2025 [facility] SPINE CERVICAL 3 VWS OR LESS [...] MD on 01/12/2025 12:57 AM Susan Watson JEWEL STAKER IMG XR PROCEDURES Final Result documented in this encounter Visit Diagnoses Not on filedocumented in this encounter Care Teams Sales Vendor Relationship Specialty Start Date End Date Jose Beckford MD PCP - General Family Medicine 06/09/24 Cherelle Coronado NP Nurse Practitioner Family Medicine 06/09/24 documented as of this encounter
--- OUTSIDE RECORDS SUMMARY | 2025-04-27 07:45 | XMS_ITS | Encounter Summary ---
Author Organization [facility] Address [address] [place] [address] Care Team Providers Care Commutator Tester Name Role Phone Thomas Hurtado MD Unavailable Susan Watson CNP Primary Care Provider [phone] Source Comments In the event this information is protected by the Federal Confidentiality of Alcohol and Drug AbusePatient Records regulations: The Federal rules restrict any use of the information to criminally investigate or prosecute any alcohol or drug abuse patient.[facility] Reason for Visit * Reason Comments PSG Check In Encounter Details Date Type Department Care Team (Late st Contact Info) Description 02/15/2022 Abstract Neurology [address] [place] [address] Main, Sleep Center [address] [place] [address] PSG Check In Social History Tobacco Use Types Packs/Day Years Used Date Smoking Tobacco: Never Smokeless Tobacco: Current Chew PHQ-2 Answer Date Recorded PHQ-2 score 6 12/22/2021 Area Deprivation Index Answer Date Brandon rded National Score (1-100), lower number is lower ri sk 87 01/02/2022 State Score (1-10), lower number is lower risk N ot on file 01/02/2022 Data from: https://www.neighborhoodatlas.medicine.[facility].edu/. Last address used for calculation [address] 01/02/2022 Sex and Gender Information Value [...] 11:00 AM EDT Office Visit Neurology [address] [place], [place] [address] Ebony Henderson [address] [place], [place] [address] 6 month follow up documented as of this encounter Visit Diagnoses Not on filedocumented in this encounter Care Teams Commutator Tester Relationship Specialty Start Date End Date Susan Watson, TROUBLE LOCATER [address] [place] [address] PCP - General Family Medicine 04/01/25 Thomas Hurtado MD [address] [place] [address] [place] [address] NI Referring Team Psychiatry 12/21/21 documented as of this encounter
--- OUTSIDE RECORDS SUMMARY | 2025-04-27 07:45 | XMS_ITS | Encounter Summary ---
Author Organization [facility] Address [address] [place] [address] Care Team Providers Care Enterostomal Therapy Nurse Name Role Phone Thomas Hurtado MD Unavailable Susan Watson CNP Primary Care Provider [phone] Source Comments In the event this information is protected by the Federal Confidentiality of Alcohol and Drug AbusePatient Records regulations: The Federal rules restrict any use of the information to criminally investigate or prosecute any alcohol or drug abuse patient.[facility] Encounter Details Date Type Department Care Team (Late st Contact Info) Description 02/06/2022 [place] [address] Provider, [facility] Questionnaire Submission Social History Tobacco Use Types Packs/Day Years Used Date Smoking Tobacco: Never Smokeless Tobacco: Current Chew PHQ-2 Answer Date Recorded PHQ-2 score 6 12/22/2021 Area Deprivation Index Answer Date Brandon rded National Score (1-100), lower number is lower ri sk 87 01/02/2022 State Score (1-10), lower number is lower risk N ot on file 01/02/2022 Data from: https://www.neighborhoodatlas.medicine.[facility].edu/. Last address used for calculation [...] 11:00 AM EDT Office Visit Neurology [address] [place] [address] Ebony Henderson DO [address] [place] [address] 6 month follow up documented as of this encounter Visit Diagnoses Not on filedocumented in this encounter Care Teams Enterostomal Therapy Nurse Relationship Specialty Start Date End Date Susan Watson, GAMING INVESTIGATOR [address] [place] [address] PCP - General Family Medicine 04/01/25 Thomas Hurtado MD [address] [place] [address] NI Referring Team Psychiatry 12/21/21 documented as of this encounter
--- OUTSIDE RECORDS SUMMARY | 2025-04-27 07:45 | XMS_ITS | Encounter Summary ---
Author Organization [facility] Address [address] [place] [address] Care Team Providers Care Switchman Name Role Phone Thomas Hurtado MD Unavailable Susan Watson CNP Primary Care Provider [phone] Source Comments In the event this information is protected by the Federal Confidentiality of Alcohol and Drug AbusePatient Records regulations: The Federal rules restrict any use of the information to criminally investigate or prosecute any alcohol or drug abuse patient.[facility] Encounter Details Date Type Department Care Team (Late st Contact Info) Description 03/05/2022 Patient Msg Neurology [address] [id number] Provider, Ccf Sleep Study Confirmation Social History Tobacco Use Types Packs/Day Years Used Date Smoking Tobacco: Never Smokeless Tobacco: Current Chew PHQ-2 Answer Date Recorded PHQ-2 score 6 12/22/2021 Area Deprivation Index Answer Date Brandon rded National Score (1-100), lower number is lower ri sk 87 01/02/2022 State Score (1-10), lower number is lower risk N ot on file 01/02/2022 Data from: https://www.neighborhoodatlas.medicine.[facility]/. Last address used for calculation [address] [...] 11:00 AM EDT Office Visit Neurology [address] [place] [address] Ebony Henderson [address] [place] [address] 6 month follow up documented as of this encounter Visit Diagnoses Not on filedocumented in this encounter Care Teams Switchman Relationship Specialty Start Date End Date Susan Watson, SHEET METAL SHOP FOREMAN [address] [place] [address] PCP - General Family Medicine 04/01/25 Thomas Hurtado MD [address] [facility] [place] [place] [address] NI Referring Team Psychiatry 12/21/21 documented as of this encounter
--- OUTSIDE RECORDS SUMMARY | 2025-04-27 07:45 | XMS_ITS | Encounter Summary ---
Author Organization [facility] Address [address] [place] [address] Care Team Providers Care Commercial Housekeeper Name Role Phone Shaikh ION Grimes Primary Care Provider [phone] Shaikh ION Grimes Unavailable [phone] Jose Beckford MD Primary Care Provider [phone] Cherelle Coronado NP Unavailable [phone] Vannessa Russell MA Unavailable [phone] Encounter Details Date Type Department Care Team (Late st Contact Info) Description 12/16/2023 [facility] [address] [place] [address] Shaikh Grimes MD [address] [place] [address] Social History Tobacco Use Types Packs/Day Years [...] How often do you attend chur or hindu services? Never 07/22/2023 Do you belong to any clubs o r organizations such as synagogue groups, unions, fraternal or athletic groups, or [...] Recorded Patient Health Questionnaire-2 Score 0 09/19/2023 [facility] of Occupat ional Health - [...] place to sleep or slept in a assisted (including now)? No 07/22/2023 Sex and Gender Information Value Date Recorded Sex Assigned at Not on file Legal Sex Male 10:05 PM EDT Gender Identity Not on file Sexual Orientation Not on file documented as of this encounter Plan of Treatment Not on file documented as of this encounter Visit Diagnoses Not on filedocumented in this encounter Care Teams Commercial Housekeeper Relationship Specialty Start Date End Date Shaikh Grimes MD [address] [place] [address] PCP - General Internal Medicine 08/12/22 06/08/24 Shaikh Grimes MD [address] [place] [address] PCP - Aet[employer] 10/11/23 08/11/24 Jose Beckford MD [address] [place] [address] PCP - General Family Medicine 06/09/24 Cherelle Coronado NP [address] [place] [address] Nurse Practitioner Family Medicine 06/09/24 Vannessa Russell, [place] [address] [place], [place] [address] Family Medicine 06/17/24 06/18/24 documented as of this encounter
--- OUTSIDE RECORDS SUMMARY | 2025-04-27 07:45 | XMS_ITS | Encounter Summary ---
Author Organization [facility] Address [facility] [place] [address] Care Team Providers Care Supervisor Word Processing Name Role Phone Thomas Hurtado MD Unavailable Susan Watson CNP Primary Care Provider [phone] Source Comments In the event this information is protected by the Federal Confidentiality of Alcohol and Drug AbusePatient Records regulations: The Federal rules restrict any use of the information to criminally investigate or prosecute any alcohol or drug abuse patient.[facility] Encounter Details Date Type Department Care Team (Late st Contact Info) Description 03/24/2025 Patient [facility] [address] [place] [address] Mariella Padgett RPh At your next appointment, choose [facility]. Social History Tobacco Use Types Packs/Day Years Used Date Smoking Tobacco: Never Smokeless Tobacco: Former Chew Quit: 07/14/2022 PHQ-2 Answer Date Recorded PHQ-2 score 2 10/12/2024 Area Deprivation Index Answer Date Brandon rded National Score (1-100), lower number is lower ri 87 05/16/2023 State Score (1-10), lower number is lower risk 8 05/16/2023 Data from: https://www.neighborhoodatlas.medicine.[facility].edu/. Last address used for calculation [address] 05/16/2023 Sex and Gender Information Value Date Recorded Sex Assigned at Not on file Legal Sex Male 11:57 AM EDT Gender Identity Not on file Sexual Orientation Not on file documented as of this encounter Plan of Treatment Upcoming Encounters Date Type Department Care Team (Late st Contact Info) Description 04/29/2025 11:00 AM EDT Office Visit Neurology [address] [place] [address] Ebony Henderson DO [address] [place] [address] 6 month follow up documented as of this encounter Visit Diagnoses Not on filedocumented in this encounter Care Teams Supervisor Word Processing Relationship Specialty Start Date End Date Susan Watson, WALLPAPER HANGER HELPER [address] [place] [address] PCP - General Family Medicine 04/01/25 Thomas Hurtado MD [address] [place] [address] NI Referring Team Psychiatry 12/21/21 documented as of this encounter
--- OUTSIDE RECORDS SUMMARY | 2025-04-27 07:45 | XMS_ITS | Encounter Summary ---
Author Organization [facility] Address [address] [place] [address] Care Team Providers Care Marine Fuel Dock Attendant Name Role Phone Susan Watson MD Primary Care Provider [phone] Encounter Details Date Type Department Care Team (Late st Contact Info) Description 04/23/2025 Orders Only [facility] Vascular and Endovascular Surgery [address] [place] [phone] Jessica Fatima, [place] Severe claudication (Primary Dx); Lower extremity pain, bilateral; Encounter for pre-operative examination Social History Tobacco Use Types Packs/Day Years [...] Description 05/10/2025 2:45 PM EDT Office Visit [facility] [address] [place] [address] Sarah Tolliver MD [address] [facility] [place] [address] 05/24/2025 1:30 PM EDT Pre-Admission Testing [facility] Pre-Anesthesia Clinic [address] [place] [address] 06/07/2025 11:00 AM EDT Hospital Encounter [facility] Main Operating Room [address] [place] [place] [address] [phone] Chris Andre MD [address] [place] [address] Lower extremity pain, bilateral; Severe claudication; Encounter for pre-operative examination 06/07/2025 11:00 AM EDT - 06/07/2025 2:00 PM EDT Surgery [facility] Main Operating Room [address] [place] [address] [phone] Chris Andre MD [address] [place] [address] CREATION, BYPASS, ARTERIAL, FEMORAL TO POPLITEAL, USING GRAFT [50998 (CPT )] Scheduled Orders Name Type Priority Associated Diagnoses Orde r Schedule CBC Lab Routine Lower extremity pain, bilateral Severe claudication Encounter for pre-operative examination Expected: 04/23/2025 (Approximate), Expires: 04/23/2026 Basic metabolic panel Lab Routine Lower extremity pain, bilateral Severe claudication Encounter for pre-operative examination Expected: 04/23/2025 (Approximate), Expires: 04/23/2026 Protime-INR Lab Routine Lower extremity pain, bilateral Severe claudication Encounter for pre-operative examination Expected: 04/23/2025 (Approximate), Expires: 04/23/2026 APTT Lab Routine Lower extremity pain, bilateral Severe claudication Encounter for pre-operative examination Expected: 04/23/2025 (Approximate), Expires: 04/23/2026 MRSA/MSSA DNA Nasal Microbiology Routine Lower extremity pain, bilateral Severe claudication Encounter for pre-operative examination Expected: 04/23/2025 (Approximate), Expires: 04/23/2026 Scheduled Procedures Name Priority Associated Diagnoses Date/Ti me CREATION, BYPASS, ARTERIAL, FEMORAL TO POPLITEAL, USING GRAFT Lower extremity pain, bilateral Severe claudication Encounter for pre-operative examination 06/07/2025 11:00 AM EDT LOWER EXTREMITY INTERVENTION Lower extremity pain, bilateral Severe claudication Encounter for pre-operative examination 06/07/2025 11:00 AM EDT documented as of this encounter Visit Diagnoses Diagnosis Severe claudication- Primary Lower extremity pain, bilateral Encounter for pre-operative examination Lower extremity pain, bilateral Severe claudication Encounter for pre-operative examination Lower extremity pain, bilateral Severe claudication Encounter for pre-operative examination documented in this encounter Care Teams Marine Fuel Dock Attendant Relationship Specialty Start Date End Date Susan Watson MD [facility] [place] [address] PCP - General Nurse Practitioner 10/13/24 documented as of this encounter
--- OUTSIDE RECORDS SUMMARY | 2025-04-27 07:45 | XMS_ITS | Encounter Summary ---
Author Organization [facility] Address [address] [place] [address] Care Team Providers Care Geological Drafter Name Role Phone Susan Watson MD Primary Care Provider [phone] Encounter Details Date Type Department Care Team (Late Contact Info) Description 04/23/2025 Orders Only [facility] Vascular and Endovascular Surgery [address] [place] [phone] Jessica Fatima, MINESH Severe claudication (Primary Dx); Encounter for pre-operative examination Social History Tobacco Use Types Packs/Day Years Used Date Smoking Tobacco: Former Cigarettes Smokeless Tobacco: Never Alcohol Use Standard Drinks/Week Comments Not Currently 0 (1 standard drink = 0.6 oz pur e alcohol) PHQ-2 Answer Date Recorded Patient Health Questionnaire-2 Score 3 04/21/2025 [place] Safety & Environment Answer Date Rec orded [...] Encounters Date Type Department Care Team (Late Contact Info) Description 05/10/2025 2:45 PM EDT Office Visit [facility] Heart at [facility] [address] [place] [address] Sarah Tolliver MD [address] [facility] [address] [facility] [place] [address] 05/24/2025 1:30 PM EDT Pre-Admission Testing [facility] Pre-Anesthesia Clinic [address] [place] [address] 06/07/2025 11:00 AM EDT Hospital Encounter [facility] Main Operating Room [address] [place] [address] [place] [address] Lower extremity pain, bilateral; Severe claudication; Encounter for pre-operative examination 06/07/2025 11:00 AM EDT - 06/07/2025 2:00 PM EDT Surgery [facility] Main Operating Room [address] [place] [address] Chris Andre MD [address] [place] [address] CREATION, BYPASS, ARTERIAL, FEMORAL TO POPLITEAL, USING GRAFT [09783 (CPT )] Scheduled Orders Name Type Priority Associated Diagnoses Orde r Schedule Type and screen Lab Routine Severe claudication Encounter for pre-operative examination Expected: [...] as of this encounter Visit Diagnoses Diagnosis Lower extremity pain, bilateral Severe claudication Encounter for pre-operative examination Severe claudication- Primary Encounter for pre-operative examination Lower extremity pain, bilateral Severe claudication Encounter for pre-operative examination documented in this encounter Care Teams Geological Drafter Relationship Specialty Start Date End Date Susan Watson MD [address] [place] [address] PCP - General Nurse Practitioner 10/13/24 documented as of this encounter
--- OUTSIDE RECORDS SUMMARY | 2025-04-27 07:45 | XMS_ITS | Encounter Summary ---
Author Organization [facility] Address [address] [place] [address] Care Team Providers Care Tungsten Refiner Name Role Phone Shaikh ION Grimes Primary Care Provider [phone] Shaikh ION Grimes Unavailable [phone] Jose Beckford MD Primary Care Provider [phone] Cherelle Coronado NP Unavailable [phone] Vannessa Russell MA Unavailable [phone] Encounter Details Date Type Department Care [...] often do you attend chur ch or taoist services? Never 07/22/2023 Do you belong to any clubs o r organizations such as sabianist groups, unions, fraternal or athletic groups, or [...] medical care, and heating? Somewhat hard 07/22/2023 [facility] of Occupat ional Health - Occupational [...] place to sleep or slept in a detention (including now)? No 07/22/2023 Sex and Gender [...] PM EST Narrative 09/05/2023 4:18 [place] [address] Magnetic Resonance Report Signed Patient: KEL CASTILLO Jr. MR#: [id number] : 1955 Acct:[id number] Age/Sex: 68 / M ADM Date: 09/05/23 Loc: MRI Attending Dr: Carlyle Zhang M.D. Ordering Physician: Carlyle Zhang M.D. Date of Service: 09/05/23 Procedure(s): MR shoulder LT wo con Accession Number(s): [id number] cc: Carlyle Zhang M.D.; Shaikh Krish Grimes [place] [id number] Patient Name: KEL CASTILLO MRN: [id number] date: 1955 Sex: M Assigned Patient Location: MRI Current Patient Location: MRI Accession/Order Number: [id number] Exam Date: 09/05/2023 14:55 Report Date: 09/05/2023 [...] definite fracture is noted. Electronically authenticated by: JOSEPH JUAN Date: 09/05/2023 16:15 Dictated By: Joseph Juan M.D. Signed By: 09/05/23 1618 DD/ 14 TD/TT: Founder Chairman And Chief Creative Officer: Procedure Note Radiology, Radiologist, - 09/05/2023 [place] [address] Magnetic Resonance Report Signed Patient: KEL CASTILLO Jr.MR#: [id number] : 1955cct:[id number] Age/Sex: 68 / MADM Date: 09/05/23 Loc: MRI Attending Dr: Carlyle Zhang M.D. Ordering Physician: Carlyle Zhang M.D. Date of Service: 09/05/23 Procedure(s): MR shoulder LT wo con Accession Number(s): [id number] cc: Carlyle Zhang M.D.; Shaikh Krish Grimes [place] [address] Patient Name: KEL CASTILLO MRN: [id number] date: 1955 Sex: M Assigned Patient Location: MRI Current Patient Location: MRI Accession/Order Number: [id number] Exam Date: 09/05/2023 14:55 Report Date: 09/05/2023 [...] definite fracture is noted. Electronically authenticated by: JOSEPH JUAN Date: 09/05/2023 16:15 Dictated By: Joseph Juan M.D. Signed By:09/05/23 1618 DD/ 1615 TD/TT: Founder Chairman And Chief Creative Officer: us Generic External Data Provider IMG XR PROCEDURES Final Result documented in this encounter Visit Diagnoses Not on filedocumented in this encounter Care Teams Tungsten Refiner Relationship Specialty Start Date End Date Shaikh Grimes MD [address] [place] [address] PCP - General Internal Medicine 08/12/22 06/08/24 Shaikh Grimes MD [address] [place] [address] PCP - [employer] 10/11/23 08/11/24 Jose Beckford MD [address] [place] [address] PCP - General Family Medicine 06/09/24 Cherelle Coronado NP [address] [place] [address] Nurse Practitioner Family Medicine 06/09/24 Vannessa Russell MA [address] [place] [address] Family Medicine 06/17/24 06/18/24 documented as of this encounter
--- OUTSIDE RECORDS SUMMARY | 2025-04-27 07:45 | XMS_ITS | Encounter Summary ---
Author Organization [facility] Address [address] [place] [address] Care Team Providers Care Scarifier Operator Name Role Phone Shaikh ION Grimes Primary Care Provider [phone] Shaikh ION Grimes Unavailable [phone] Jose Beckford MD Primary Care Provider [phone] Cherelle Coronado NP Unavailable [phone] Vannessa Russell MA Unavailable [phone] Encounter Details Date Type Department Care [...] often do you attend chur ch or congregational services? Never 07/22/2023 Do you belong to any clubs o r organizations such as episcopal groups, unions, fraternal or athletic groups, or [...] medical care, and heating? Somewhat hard 07/22/2023 [facility] of Occupat ional [...] PM EST Narrative 08/26/2023 3:17 PM EST [address] [address] XRay Report Signed Patient: KEL CASTILLO Jr. MR#: [id number] : 1955 Acct:[id number] Age/Sex: 68 / M ADM Date: 08/26/23 Loc: RAD Attending Dr: Carlyle Zhang M.D. Ordering Physician: Carlyle Zhang M.D. Date of Service: 08/26/23 Procedure(s): XR shoulder LT min 2V Accession Number(s): [id number] cc: Carlyle Zhang M.D.; Shaikh Krish Grimes [address] [address] Patient Name: KEL CASTILLO MRN: [id number] date: 1955 Sex: M Assigned Patient Location: [facility] Current Patient Location: RAD Accession/Order Number: [id number] Exam Date: 08/26/2023 11:50 Report Date: 08/26/2023 [...] By: José Miguel Gonzalez M.D. Signed By: 08/26/237 DD/ 13 TD/TT: White Sugar Pan Tank Operator: Procedure Note Radiology, Radiologist, MD - 10/16/2023 [place] [address] XRay Report Signed Patient: KEL CASTILLO Jr.MR#: [id number] : 1955cct:[id number] Age/Sex: 68 / MADM Date: 08/26/23 Loc: RAD Attending Dr: Carlyle Zhang M.D. Ordering Physician: Carlyle Zhang M.D. Date of Service: 08/26/23 Procedure(s): XR shoulder LT min 2V Accession Number(s): [id number] cc: Carlyle Zhang M.D.; Shaikh Krish Grimes [place] [address] Patient Name: KEL CASTILLO MRN: [id number] date: 1955 Sex: M Assigned Patient Location: [facility] Current Patient Location: RAD Accession/Order Number: [id number] Exam Date: 08/26/2023 11:50 Report Date: 08/26/2023 [...] Dictated By: José Miguel Gonzalez M.D. Signed By:08/26/23 1517 DD/ 1514 TD/TT: White Sugar Pan Tank Operator: us Generic External Data Provider IMG XR PROCEDURES Final Result documented in this encounter Visit Diagnoses Not on filedocumented in this encounter Care Teams Scarifier Operator Relationship Specialty Start Date End Date Shaikh Grimes MD [address] [place] [address] PCP - General Internal Medicine 08/12/22 06/08/24 Shaikh Grimes MD [address] [place] [address] PCP - [employer] 10/11/23 08/11/24 Jose Beckford MD [address] [place] [address] PCP - General Family Medicine 06/09/24 Cherelle Coronado NP [address] [place] [address] Nurse Practitioner Family Medicine 06/09/24 Vannessa Russell MA [address] [place] [address] Family Medicine 06/17/24 06/18/24 documented as of this encounter
--- OUTSIDE RECORDS SUMMARY | 2025-04-27 07:45 | XMS_ITS | Clinical Summary ---
Author Organization [facility] Address [address] [place] [address] Care Team Providers Care Top Cleaner Name Role Phone Thomas Hurtado MD Unavailable Susan Watson CNP Primary Care Provider [phone] Allergies No known active allergies Medications * This document contains information received from the source organization and may not represent a complete record from that organization. albuterol HFA (PROVENTIL HFA, VENTOLIN HFA) 90 mcg/actuation inhaler INHALE 1 PUFF BY MOUTH EVERY 4 HOURS NEEDED 2 Active amLODIPine (NORVASC) 5 mg tablet amlodipine 5 mg tablet TAKE 1 TABLET BY MOUTH EVERY DAY Active aspirin, enteric coated (ASPIRIN, ENTERIC COATED) 81 mg EC tablet q 24 HR. Acti ve atorvastatin (LIPITOR) 80 mg tablet atorvastatin 80 mg tablet TAKE 1 TABLET BY MOUTH EVERY DAY Active buPROPion XL (WELLBUTRIN XL) 300 mg 24 hr tablet bupropion HCl XL 300 mg 24 hr tablet, extended release TAKE 1 TABLET BY MOUTH EVERY DAY IN THE MORNING Active busPIRone (BUSPAR) 15 mg tablet buspirone 15 mg tablet TAKE 1 TABLET BY MOUTH TWICE DAILY Active clopidogrel (PLAVIX) 75 mg tablet clopidogrel 75 mg tablet TAKE 1 TABLET BY MOUTH AT BEDTIME Active famotidine (PEPCID) 20 mg tablet famotidine 20 mg tablet TAKE 1 TABLET BY MOUTH EVERY DAY AT BEDTIME NEEDED Active Fenofibrate Micronized 43 mg capsule Take 43 mg by mouth twice daily. 2 Active isosorbide mononitrate ER (IMDUR) 60 mg 24 hr tablet isosorbide mononitrate ER 60 mg tablet,extended release 24 hr TAKE 1 TABLET BY MOUTH EVERY MORNING Active metoprolol succinate ER (TOPROL XL) 50 mg 24 hr tablet metoprolol succinate ER 50 mg tablet,extended release 24 hr TAKE 1 TABLET BY MOUTH TWICE DAILY Active nitroglycerin sublingual (NITROQUICK) 0.4 mg SL tablet nitroglycerin 0.4 mg sublingual tablet Active sertraline (ZOLOFT) 100 mg tablet sertraline 100 mg tablet TAKE 1 AND 1/2 TABLETS BY MOUTH EVERY DAY Active omega 7-yrr-gho-fish oil (FISH OIL) 100-160-1,000 mg cap Take by mouth. Activ e traZODone (DESYREL) 100 mg tablet Take 100 mg by mouth daily at bedtime. 2 Active OLANZapine (ZYPREXA) 5 mg tablet Take 5 mg by mouth daily at bedtime. 5 025 Active furosemide (LASIX) 20 mg tablet Take 1 tablet by mouth every morning. 30 tablet 11 5 Active empagliflozin (JARDIANCE) 10 mg tablet Take 1 tablet by mouth daily with breakfast. 30 tablet 11 5 Active Active Problems Problem Noted Date Diagnosed Date Recurrent major depression in partial remission 04/12/2022 MCI (mild cognitive impairment) 04/12/2022 Dyspnea and respiratory abnormalities 02/09/2022 Overview (02/09/2022): 66 pk/yr history of smoking. Quit in 1994, when diagnosed with NSCLC and treated with RULobectomy and XRT. Also has extensive coronary disease, with CABG. Sees cardiology at [place]. Anxiety, HTN, CKD IIIb. PCP started albuterol [...] spirometry suggests mild obstruction without BD response. Assessment & Plan (02/09/2022 12:26 PM EDT): Assessment: shortness of breath due to multiple factors. Deconditioning. Likely JITENDRA. Limiited pulmonary reserve. Cardiac disease. PLAN: PSG in lab to diagnose JITENDRA if present. Pulmonary rehabilitation. Referral to telecommunications project manager here, at his request. Echocardiogram. Stop advair and breo today and start spiriva. His COPD classification would indicate a LAMA only for most patients. Encounters Date Type Department Care Team Description 04/05/[address] [facility] Cardiology Ware [address] [place] [address] Michael Gant MD Cushion Former - Other 04/02/2025 Results Follow-Up [facility] Cardiology [place] [address] [place] [address] Michael Gant MD Results 04/01/2025 2:20 PM EDT Office Visit [facility] Cardiology [place] [address] [place] [address] Michael Gant MD Coronary artery disease involving alturas coronary artery of alturas heart without angina pectoris (Primary Dx); Hx of CABG; Primary hypertension; Mixed hyperlipidemia; CRI (chronic renal insufficiency), stage 4 (severe) (HCC); PAD (peripheral artery disease); Other emphysema (HCC); Non-rheumatic mitral regurgitation; ROMAN (dyspnea on exertion); MCI (mild cognitive impairment) 04/01/2025 Travel 03/24/2025 Patient [facility] HB[facility] [address] [place] [address] Mariella Padgett RPh At your next appointment, choose [facility]. from Last 3 Months Social History Tobacco Use Types Packs/Day Years Used Date Smoking Tobacco: Never Smokeless Tobacco: Former Chew Quit: 07/14/2022 Tobacco Cessation:Counseling Given: Not Answered Alcohol Use Standard Drinks/Week Comments Not Currently 0 (1 standard drink = 0.6 oz pur e alcohol) PHQ-2 Answer Date Recorded PHQ-2 score 5 04/15/2025 Area Deprivation Index Answer Date Brandon rded National Score (1-100), lower number is lower ri sk 87 05/16/2023 State Score (1-10), lower number is lower risk 8 05/16/2023 Data from: https://www.neighborhoodatlas.medicine.[facility]/. Last address used for calculation [address] 05/16/2023 Sex and Gender Information Value Date Recorded Sex Assigned at Not on file Legal Sex Male 11:57 AM EDT Gender Identity Not on file Sexual Orientation Not on file Last Filed Vital Signs Vital Sign Reading Time Taken Comments Blood Pressure 123/58 04/01/2025 2:14 PM EDT Pulse 59 04/01/2025 2:14 PM EDT Temperature 36.4 C (97.5 F) 02/09/2022 11:04 AM EDT Respiratory Rate 18 02/09/2022 11:04 AM EDT Oxygen Saturation 99% 04/01/2025 2:14 PM EDT Inhaled Oxygen Concentration - - Weight 74.8 kg (165 lb) 04/01/2025 2:14 PM EDT Height 167.6 cm (5' 6 ) 04/01/2025 2:14 PM EDT Body Mass Index 26.63 04/01/2025 2:14 PM EDT Plan of Treatment Upcoming Encounters Date Type Department Care Team (Late st Contact Info) Description 04/29/2025 11:00 AM EDT Office Visit Neurology [address] [place] [address] Ebony Henderson DO [address] [place] [address] 6 month follow up Health Maintenance Due Date Last Done Comments Annual PCP Team Chronic Dise ase Visit 1971 Anxiety Screening 1971 Hepatitis C Screening 1971 LDL Cholesterol 1971 DTaP,Tdap,Td Vaccine (1 - Tdap) 1972 CT Colonography 1998 Cologuard (FIT-DNA) 1998 Colonoscopy 1998 Colorectal Cancer Screening 1998 Fecal Occult Blood 1998 Sigmoidoscopy 1998 Shingrix Vaccine (1 of 2) 2003 RSV Vaccine (1 - Risk 60-74 years 1-dose series) 2013 Diabetes Screening 05/19/2024 05/19/2021, 10/02/2019 Advance Directive Discussion 08/12/2024 Medicare Advantage Annual We llness Visit 08/12/2024 Influenza Vaccine (#1) 2025 05/23/2021, 2019 Serum Creatinine 01/12/2026 01/12/2025, 06/2025, 03/25/2024, Additional history exists Lipid Screening 10/20/2029 10/20/2024, 06/23/2024 Pneumococcal Vaccine: 50+ Completed 08/03/2020, Goals Goal Patient Goal Type Associated Problems Recent Progress Patient-Stated? Author Blood Pressure < 130/80 Blood Pressure 123/58( 025 2:14 PM EDT) Michael Gomez MD Procedures Procedure Name Priority Date/Time Associated Diagnosis Comments CARDIAC 04/08/2025 11:15 AM EDT EXTERNAL IMAGING 04/05/2025 3:55 PM EDT NT PRO BNP Routine 04/01/2025 3:19 PM EDT ROMAN (dyspnea on exertion) ECG B/O W INTERP (MED OFFICE) Routine 04/01/2025 Coronary artery disease involving alturas coronary artery of alturas heart without angina pectoris from Last 3 Months Results * CARDIAC (04/08/2025 11:15 AM EDT) Narrative 04/08/2025 11:15 AM EDT Ordered by an unspecified provider. [facility] Provider CARDIOLOGY Final Result * EXTERNAL IMAGING (04/05/2025 3:55 PM EDT) Anatomical Region Laterality Modality Other us External Provider PA-C RADIOLOGY Final Res ult * (ABNORMAL) NT PRO BNP (04/01/2025 3:19 PM EDT) NT Pro BNP 4,813(H) <125 pg/mL 04/01/2025 5:02 PM EDT [facility] Blood BLOOD SPECIMEN / Unknown Venipuncture / Unknown 04/01/2025 3:19 PM EDT 04/01/2025 3:19 PM EDT us Michael Gant MD LABORATORY Final Result [facility] [address] [place] [address], * ECG B/O W INTERP (MED OFFICE) (04/01/2025) Narrative Michael Gant MD - 04/01/2025 Normal sinus rhythm nonspecific ST-T changes septal Q waves Michael Gant MD EKG Final Result from Last 3 Months Insurance [facility] [place] O Care Teams Top Cleaner Relationship Specialty Start Date End Date Susan Watson, PLATFORM OPERATIONS DIRECTOR [address] [place] [address] PCP - General Family Medicine 04/01/25 Thomas Hurtado MD [address] [place] [address] Referring Team Psychiatry 12/21/21
--- OUTSIDE RECORDS SUMMARY | 2025-04-27 07:45 | XMS_ITS | Encounter Summary ---
Author Organization [facility] Address [address] [place] [address] Care Team Providers Care Hard Rock Miner Name Role Phone Shaikh ION Grimes Primary Care Provider [phone] Shaikh ION Grimes Unavailable [phone] Jose Beckford MD Primary Care Provider [phone] Cherelle Coronado NP Unavailable [phone] Vannessa Russell MA Unavailable [phone] Encounter Details Date Type Department Care Team (Late st Contact Info) Description 09/02/2023 Orders Only [facility] [address] [place] [address] Carlyle Mcgowan MD [address] [place] [address] [place] [address] Social History Tobacco Use Types [...] How often do you attend chur or worship services? Never 07/22/2023 Do you belong to any clubs o r organizations such as muslim groups, unions, fraternal or athletic groups, or [...] medical care, and heating? Somewhat hard 07/22/2023 [facility] of Occupat ionmo Health - Occupational Stress Questionnaire Answer Date [...] place to sleep or slept in a jail (including now)? No 07/22/2023 Sex and Gender [...] Upper Extremities, Shoulder Left Radi ographic Imaging Carlyle Mcgowan MD IMG XR PROCEDURES Final Res ult documented in this encounter Visit Diagnoses Not on filedocumented in this encounter Care Teams Hard Rock Miner Relationship Specialty Start Date End Date Shaikh Grimes MD [address] [place] [address] PCP - General Internal Medicine 08/12/22 06/08/24 Shaikh Grimes MD [address] [place] [address] PCP - [employer] 10/11/23 08/11/24 Jose Beckford MD [address] [place] [address] PCP - General Family Medicine 06/09/24 Cherelle Coronado NP [address] [place] [address] Nurse Practitioner Family Medicine 06/09/24 Vannessa Russell, MINESH [address] [place] [address] Family Medicine 06/17/24 06/18/24 documented as of this encounter
--- OUTSIDE RECORDS SUMMARY | 2025-04-27 07:46 | XMS_ITS | Clinical Summary ---
Author Organization [facility] Address [address] [place] [address] Phone Care Team Providers Care Hoop Cutter Name Role Phone Unavailable Primary Care Provider [...]
--- OUTSIDE RECORDS SUMMARY | 2025-04-27 07:46 | XMS_ITS | Encounter Summary ---
Author Organization [facility] Address [address] [place] [address] Care Team Providers Care Caisson Worker Name Role Phone Shaikh ION Grimes Primary Care Provider [phone] Shaikh ION Grimes Unavailable [phone] Jose Beckford MD Primary Care Provider [phone] Cherelle Coronado NP Unavailable [phone] Vannessa Russell MA Unavailable [phone] Encounter Details Date Type Department Care [...] often do you attend chur ch or gnosticist services? Never 07/22/2023 Do you belong to any clubs o r organizations such as taoism groups, unions, fraternal or athletic groups, or [...] medical care, and heating? Somewhat hard 07/22/2023 [facility] - Occupational [...] place to sleep or slept in a halfway (including now)? No 07/22/2023 Sex and Gender [...] PM EST Narrative 07/29/2023 4:04 [place] [address] XRay Report Signed Patient: KEL CASTILLO Jr. MR#: [id number] : 1955 Acct:[id number] Age/Sex: 68 / M ADM Date: 07/29/23 Loc: RAD Attending Dr: Carlyle Zhang M.D. Ordering Physician: Carlyle Zhang M.D. Date of Service: 07/29/23 Procedure(s): XR shoulder LT min 2V Accession Number(s): [id number] cc: Carlyle Zhang M.D.; Shaikh Krish Grimes [place] [id number] Patient Name: KEL CASTILLO MRN: [id number] date: 1955 Sex: M Assigned Patient Location: [facility] Current Patient Location: [facility] Accession/Order Number: [id number] Exam Date: 07/29/2023 11:20 Report Date: 07/29/2023 [...] or dislocation. Glenohumeral relationship appears grossly unremarkable. Jjbi-je-txnrbwag degenerative changes about the acromioclavicular joint. Soft tissues are grossly within normal limits. Postoperative sternotomy wires and clips are present. XR/XR shoulder LT min 2V IMPRESSION: Left shoulder study fails to demonstrate definite acute fracture or dislocation. Follow-up as needed. Electronically authenticated by: FABIAN JOSHUA Date: 07/29/2023 16:01 Dictated By: Fabian Joshua M.D. Signed By: 07/29/23 1604 DD/ 1601 TD/TT: Briquetting Machine Operator: Procedure Note Radiology, Radiologist, MD - 07/29/2023 [place] [address] XRay Report Signed Patient: KEL CASTILLO Jr.MR#: [id number] : 1955cct:[id number] Age/Sex: 68 / MADM Date: 07/29/23 Loc: RAD Attending Dr: Carlyle Zhang M.D. Ordering Physician: Carlyle Zhang M.D. Date of Service: 07/29/23 Procedure(s): XR shoulder LT min 2V Accession Number(s): [id number] cc: Carlyle Zhang M.D.; Shaikh Krish Grimes [facility] [place] [address] Patient Name: KEL CASTILLO MRN: [id number] date: 1955 Sex: M Assigned Patient Location: RAD Current Patient Location: RAD Accession/Order Number: [id number] Exam Date: 07/29/2023 11:20 Report Date: 07/29/2023 [...] or dislocation. Glenohumeral relationship appears grossly unremarkable. Tufi-rh-uqrscuwo degenerative changes about the acromioclavicular joint. Soft tissues are grossly within normal limits. Postoperative sternotomy wires and clips are present. XR/XR shoulder LT min 2V IMPRESSION: Left shoulder study fails to demonstrate definite acute fracture or dislocation. Follow-up as needed. Electronically authenticated by: FABIAN JOSHUA Date: 07/29/2023 16:01 Dictated By: Fabian Joshua M.D. Signed By:07/29/23 1604 DD/ 1601 TD/TT: Briquetting Machine Operator: Generic External Data Provider IMG XR PROCEDURES Final Result documented in this encounter Visit Diagnoses Not on filedocumented in this encounter Care Teams Caisson Worker Relationship Specialty Start Date End Date Shaikh Grimes [place] [address] [place] [address] PCP - General Internal Medicine 08/12/22 06/08/24 Shaikh Grimes MD [address] [place] [address] PCP - [employer] 10/11/23 08/11/24 Jose Beckford MD [address] [place] [address] PCP - General Family Medicine 06/09/24 Cherelle Coronado NP [address] [place] [address] Nurse Practitioner Family Medicine 06/09/24 Vannessa Russell MA [address] [place] [address] Family Medicine 06/17/24 06/18/24 documented as of this encounter
--- OUTSIDE RECORDS SUMMARY | 2025-04-27 07:47 | XMS_ITS | CCD ---
Author Organization [facility] Care Team Providers Care Stiff Neck Loader Name Role Phone AMBURN, JOMAR Unavailable Unavailable [...] Jose Beckford MD Primary Care Provider Ivonne JACKHAMMER SPLITTER OPERATOR, Jayy Unavailable Vannessa Russell MA Unavailable Unavailable Cornelio LEMON, [facility] Primary Care Provider [phone] Ivonne JACKHAMMER SPLITTER OPERATOR, Jayy Unavailable EBONY TRENT Attending Unavailable SELF Referring Unavailable MISTY POLO Attending Unavailable EBONY TRENT Referring Unavailable EBONY TRENT Attending Unavailable SELF Referring Unavailable Aichholobi TUGBOAT DISPATCHER-LABORER DRIVER, Susan Hurley Primary Care Provider SUSAN WATSON Attending Unavailable SUSAN WATSON Attending Unavailable SHAIKH GRIMES Attending Unavailable JAYY CORONADO Attending Unavailabl e SUSAN WATSON Attending Unavailable SUSAN WATSON Attending Unavailable JAYY CORONADO Attending Unavailabl e Aichholz TUGBOAT DISPATCHER-LABORER DRIVER, Susan J Primary Care Provider AichSusan oh [...] Primary Care Unavailable ELTAHAWY, EHAB Attending Unavailable NAZZAL, MUNIER Referring Unavailable ELTAHAWY, EHAB Admitting Unavailable ELTAHAWY, EHAB Attending Unavailable ELTAHAWY, EHAB Referring Unavailable NAZZAL, MUNIER Attending Unavailable ELTAHAWY, EHAB Referring Unavailable Allergies Allergy Classification Reported Allergen(s) Allergy Type Date of Onset Reaction(s) Facility (1 source) Penicillins; Translations: [PENICILLINS] Propensity to adverse reactions to drug (disorder) [facility] Repository Medications Current Medications Medication Drug Class(es) Dates Sig (Normalized) Sig (Original) [id number] 200 actuat albuterol 0.09 mg/actuat metered dose [...] EC tablet Indications: Coronary artery disease involving skokomish coronary artery of skokomish heart without angina pectoris Take 1 tablet [...] Start: 10-15-2023 take 1 tablet by matt once daily in the morning Start: 09-19-2023 [...] MG tablet Indications: Coronary artery disease involving skokomish coronary artery of skokomish heart without angina pectoris Take 1 tablet [...] daily. 12/15/2021 Active take [facility] capsule by [facility] once daily before breakfast fenofibrate [...] Indications: Chronic kidney disease, stage 4 (severe) ([facility]) Take 1 tablet (325 mg) by mouth [...] 1 puff(s) by inhalation in the morning mpecqtenltz-czoupnykt-htgoekry (TRELEGY ELLIPTA) 100-62.5-25 mcg blister with device Inhale 1 puff in the morning. 02/18/2024 03/24/2025 Active Start: 10-15-2023 Fluticasone-Um eclidin-Vilanter (Trelegy Ellipta) 100-62.5-25 mcg blister with device Active 1 INH INHALATION Daily October 15, 2023 1:00am Start: 09-19-2023 End: 12-18-2023 take 1 puff(s) by inhalation in the morning Bliwhzjdppq-Jdaawjmaf-Gpmksy (Trelegy Ellipta) 100-62.5-25 MCG/ACT aerosol powder Indications: Chronic obstructive pulmonary disease, unspecified COPD type (CMS/HCC) Inhale 1 puff in the morning. 90 each 0 09/19/2023 12/18/2023 Active Start: 02-27-2022 take 1 puff(s) by inhalation once daily Trelegy Ellipta 100-62.5-25 MCG/INH 1 pu ff Inhalation Once a day for 30 days Feb, Active End: 09-19-2023 Rrzvzffulsp-Tdlaylswl-Onawun (Trelegy Ellipta) 100-62.5-25 MCG/ACT aerosol powder Inhale [...] hr tablet Indications: Coronary artery disease involving skokomish coronary artery of skokomish heart without angina pectoris (CMS/HCC) , Primary hypertension (CMS/HCC) Take 1 tablet (60 mg) by mouth in the morning. Do not crush or chew.. 90 tablet 0 09/19/2023 12/18/2023 Active Start: 10-22-2019 End: 05-30-2025 take 1 tablet by mouth once daily isosorbide mononitrate ER (Imdur) 60 MG 24 hr tablet Indications: Primary hypertension , Coronary artery disease involving skokomish coronary artery of skokomish heart without angina pectoris Take 1 tablet [...] Primary hypertension , Coronary artery disease involving skokomish coronary artery of skokomish heart without angina pectoris Take 1 tablet (50 mg) by mouth in the morning and 1 tablet (50 mg) before bedtime. 180 tablet 1 03/01/2025 05/30/2025 Active Start: 09-19-2023 End: 12-18-2023 take 1 tablet by mouth in the morning metoprolol tartrate (Lopressor) 50 MG tablet Indications: Coronary artery disease involving skokomish coronary artery of skokomish heart without angina pectoris (CMS/HCC) , Primary [...] DAILY Active take 1 capsule by [facility] twice daily Metoprolol Succinate 50 [...] SL tablet Indications: Coronary artery disease involving skokomish coronary artery of skokomish heart without angina pectoris Place 1 tablet [...] BY MOUTH EVERY DAY AT BEDTIME omega 6-uqc-bxb-fish oil (FISH OIL) 100-160-1,000 mg cap (16 sources) omega 3-dha-epa- fish oil (FISH OIL) 100-160-1,000 mg cap Take by mouth. Active omega 3-dha-epa- fish oil (FISH OIL) 100-160-1,000 mg cap Take by mouth. 0 Active Comment on above: Take by mouth. Hanna-3 Fatty Acids (2 sources) Start: 09-13-2020 take 1000 mg by mouth once daily Hanna-3 Fatty Acids Active 1000 MG PO Daily September 13, 2020 1:00am Hanna-3 Fatty Acids Capsule (2 sources) Start: 09-13-2020 take 1 capsule by mouth once daily Hanna-3 Fatty Acids Capsule Active 1000 MG PO [...] Active Start: 12-04-2021 take [address] [facility] every twenty-four hours Doxepin HCl 25 [...] 50 PLUS) tab (9 sources) End: 08-15-2022 Fjzwwmrkqpgjr-Lbkiwnfs-Jskh in (MULTIVITAMIN 50 PLUS) tab Take 1 [...] disease (20 sources) Atherosclerotic heart disease of skokomish coronary artery without angina pectoris; Translations: [Coronary [...] of the extremities; Translations: [Unspecified atherosclerosis of skokomish arteries of extremities, unspecified extremity] Onset: 08-25-2012 [...] Translations: [Cervicalgia] Onset: 11-19-2024 10-12-2024 Episodic Unclassified (2 sources) Consult; Translations: [Consult] Onset: 04-21-2025 Past or Other Problems Problem Classification Problem [...] Name Value Interpretation Reference Range Facility 36on 04-21-2025 36 Regarding stress lamont t result from 04/20/2025: Sarah Tolliver MD to Me (Selected Message) EE 04/20/25 5:25 PM Please let the patient and her family know that her stress test shows no ischemia; however his ejection fraction is slightly less than it was on echo. Please repeat a limited echocardiogram diagnosis reduced EF by stress test. Has he been seen by vascular surgery yet? Thank you Spoke with patient's daughter and informed her of message per Dr. Tolliver. He has an apt today at [facility] with vascular surgery. Order for limited echo faxed to [facility]. Normal [facility] Orders Onlyon 04-20-2025 Orders Only [id number] Kel Castillo 1955 M Date Provider Department Center 04/20/2025 [id number] PATTERSON CARD [facility] Family History Problem Relation Age of Onset Diabetes Mother Family Status - Relation Status Age at Mother Normal [facility] 36on 04-19-2025 36 Pt calling about bmp results, they are in media please advise Normal [facility] ANESon 04-08-2025 ANES -- Attestation signed by Sarah Tolliver MD at 04/08/2025 9:29 AM Sarah Tolliver MD, MPH, [facility], [facility], [facility] Interventional Cardiology Pager Email: [email or web address] Patient: Kel Castillo Procedure Information Date/Time: 04/08/2530 Procedures: Aortogram - PC APPROVED AO/ RUNOFFS Lower extremity angiogram (Bilateral) Location: [facility] FRANCHISE SALES DIRECTOR 3 / [facility] (Cath) Providers: Sarah Tolliver MD Clinical information reviewed: Allergies Meds Physical Exam Airway Mallampati: III TM [...] discussed with attending. Additional Equipment Requests Normal [facility] BASIC METABOLIC PANELon 03-13 Anion gap [Moles/Vol] 10 mmol/L Normal 7-20 [facility] Comment on above: Performed By: #### L AB15 #### [facility] (BEAKER) [address] [place] [address] Calcium [Mass/Vol] 9.3 mg/dL Normal 8.6-10.3 [facility] Comment on above: Performed By: #### L AB15 #### [facility] (BEAKER) [address] [place] [address] Chloride [Moles/Vol] 106 mmol/L Normal 98-107 [facility] Comment on above: Performed By: #### L AB15 #### [facility] (BEAKER) [address] [place] [address] CO2 [Moles/Vol] 28 mmol/L Normal 21-31 [facility] Comment on above: Performed By: #### L AB15 #### [facility] (BEAKER) [address] [place] [address] Creatinine [Mass/Vol] 2.18 mg/dL High 0.70-1.30 [facility] Comment on above: Performed By: #### L AB15 #### [facility] (BEAKER) [address] [place] [address] GLOMERULAR FILTRATION RATE ML/MIN/1.73 SQ M.PREDICTED 31.6 mL/min/1.73m*2 Low >60.0 [facility] Comment on above: Result Comment: The [facility]???s estimated glomerular filtration rate (eGFR) will [...] individuals. Performed By: #### L AB15 #### [facility] ([facility]) [address] [place] [address] Glucose [Mass/Vol] 102 mg/dL High 70-100 [facility] Comment on above: Performed By: #### L AB15 #### [facility] ([facility]) [address] [place] [address] Potassium [Moles/Vol] 4.4 mmol/L Normal 3.5-5.1 [facility] Comment on above: Performed By: #### L AB15 #### [facility] ([facility]) [address] [place] [address] Sodium [Moles/Vol] 140 mmol/L Normal 136-145 [facility] Comment on above: Performed By: #### L AB15 #### [facility] ([facility]) [address] [place] [address] Urea nitrogen [Mass/Vol] 34 mg/dL High 7-25 [facility] Comment on above: Performed By: #### L AB15 #### [facility] ([facility]) [address] [place] [address] UREA NITROGEN/CREATININE (MASS RATIO) IN SER/PLAS 15.6 Normal [facility] Comment on above: Performed By: #### L AB15 #### [facility] ([facility]) [address] [place] [address] CBCon 04-08-2025 Erythrocyte distribution width (RBC) [Ratio] 14.6 % Normal 11.5-15.0 [facility] Comment on above: Performed By: #### L [id number] ####[facility] ([facility])[address] [place] [address] ERYTHROCYTE MEAN CORPUSCULAR HEMOGLOBIN CONCENTRATION (G/DL) BY AUTOMATED 33.1 g/dL Normal 32.0-35.0 [facility] Comment on above: Performed By: #### L [id number] ####[facility] ([facility])[address] [place] [address] Hematocrit (Bld) [Volume fraction] 34.1 % Low 39.0-50.0 [facility] Comment on above: Performed By: #### L [id number] ####[facility] ([facility])[address] [place] [address] Hemoglobin (Bld) [Mass/Vol] 11.3 g/dL Low 13.0-17.0 [facility] Comment on above: Performed By: #### L [id number] ####[facility] ([facility])[address] [place] [address] MCH (RBC) [Entitic mass] 30.6 pg Normal 27.0-33.0 [facility] Comment on above: Performed By: #### L [id number] ####[facility] ([facility])[address] [place] [address] MCV (RBC) [Entitic vol] 92.4 fL Normal 82.0-98.0 [facility] Comment on above: Performed By: #### L [id number] ####[facility] ([facility])[address] [place] [address] PLATELETS (10*3/UL) IN BLOOD AUTOMATED COUNT 173 10*3/uL Normal 150-400 [facility] Comment on above: Performed By: #### L [id number] ####[facility] ([facility])[address] [place] [address] RBC (Bld) [#/Vol] 3.69 10*6/uL Low 4.20-5.70 [facility] Comment on above: Performed By: #### L [id number] ####[facility] ([facility])[address] [place] [address] WBC (Bld) [#/Vol] 6.07 10*3/uL Normal 4.00-10.60 [facility] Comment on above: Performed By: #### L [id number] ####[facility] ([place])[address] [place] [address] HPon 04-08-2025 HP -- Attestation signed by [...] his baseline creatinine. Sarah Tolliver MD, MPH, [facility], [facility], [facility] Interventional Cardiology Pager Email: [email or web address] History Of Present Illness Kel Castillo is a 69 y.o. male presenting initally in clinic with leg pain. He has an extensive PMH of CAD s/p 3V CABG in 2009, CKD 4, PAD, HTN, HLD, COPD. His last cath was in 2019 which showed severe skokomish CAD, patent SPRAGUE-LAD and SVG-OM but occluded radial-PDA. 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 His last TTE in 02/19/25 notes [...] aortogram w/ bilateral angiography Evgeny Arceo MD Ic Design Engineer, PGY-4 [facility] 04/08/25 9:15 AM [1] Medications Prior [...] fluticasone-umeclidin- vilanter (Huy (more content not included)... [facility] Conrado 04-08-2025 MABELNOTYeimy RN educated pt on d/ c instructions. [...] off of unit with all of belongings. [facility] Orders Onlyon 04-08-2025 Orders Only [id number] Kel Castillo 1955 M Date Provider Department Center 04/08/2025 REGINA JONES [facility] HeartVAS Family History Problem Relation Age of Onset Diabetes Mother Family Status - Relation Status Age at Mother Normal [facility] Donnell 04-05-2025 CNPN Telephone (AGCARDPOB ) SAMIR CASTILLO ([id number]) 1955 M Date Time Provider Department 04/05/25 BILL GANT AGCARDPOB During your visit today, we recorded the following information about you: Mariana Wheeler LPN 04/05/2025 4:03 PM Signed Chest x-ray results received from [facility]. Scanned in for review. Mariana Wheeler LPN Allergies As of Date: 04/05/2025 (No Known Allergies) Date Reviewed: 04/01/2025 Reviewed by: Neha Orozco MA - Fully Assessed Reason for Visit: 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 Manager - Other [[id number]] Prescriptions as of 04/05/2025 - furosemide (LASIX) [...] TABLETS BY MOUTH EVERY DAY - omega 8-epg-kpq-fish oil (FISH OIL) 100-160-1,000 mg cap Take by mouth. Problem List As Of Date 04/05/2025 Noted Resolved Dyspnea and respiratory abnormalities [R06.00, *02/09/2022 Recurrent major depression in partial remission*04/12/2022 MCI (mild cognitive impairment) [G31.84] 04/12/2022 Encounter Status:Closed by MARIANA WHEELER on 04/05/25 Normal [facility] XR CHEST 2 VWSon 04-05-2025 XR CHEST 2 VWS XR CHEST 2 VWS HISTORY: Other emphysema ([facility]) COMPARISON: 02/26/2024 TECHNIQUE: PA and lateral views of the chest. FINDINGS: Unchanged cardiopericardial silhouette. Streaky opacities right lower lung potentially atelectasis or scarring. Volume loss right lung. No dense consolidation. No pneumothorax. No pleural effusion. IMPRESSION: Chronic lung disease without definite acute pulmonary process. Finalized by Roc Valverde MD on 04/05/2025 2:41 PM [facility] MR CERVICAL SPINE WO CONTon [...] Swain MD on 04/03/2025 12:02 PM Normal [facility] NT-PROBNP SERPL-MCNCon 0 04-01-2025 Natriuretic peptide B (Bld) [Mass/Vol] 4813 pg/mL High NINF - 125 pg/mL [facility] Healthcare Specimen Type: BLOOD SPECIMEN Ordering Facility: [facility] Address: [address] [place] [id number] Original Ordering Provider: BILL GANT CLINIS[facility] CNOVon 04-01-2025 CNOV Office Visit (AGCARDPOB) SAMIR CASTILLO ([id number]) 1955 M Date Time Provider Department 04/01/25 2:20 PM BILL GANT AGCARDB During your visit today, we recorded the [...] a new patient visit. He lives in [place] and gets most of his care in [place] at [facility] but just wants a second opinion [...] supplemental oxygen. He has not seen a dye jig operator recently and has not had any [...] family for transportation. 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 He quit smoking 40 [...] 1/2 TABLETS BY MOUTH EVERY DAY omega 3-hdl-nhr-fish oil (FISH OIL) 100-160-1,000 mg cap Take [...] (more content not included)... Normal [facility] ECG B/O W INTERP (MED OFFICE )on 04-01-2025 Normal sinus rhythm nonspecific ST-T changes septal Q waves [facility] NT PRO BNPon 04-01-2025 Natriuretic peptide.B prohormone N-Terminal [Mass/Vol] 4813 pg/mL High NINF - 125 pg/mL [facility] NT-proBNP SerPl-mCncon 04-01 Natriuretic peptide.B prohormone N-Terminal [Mass/Vol] 4813 pg/mL High <125 [facility] Comment on above: Order Comment: Speci men Type: BLOOD SPECIMEN Ordering Facility: [facility] Address: [address] [place] [address] [place] [address] Performed By: #### 3 [id number] #### [facility] CLIA [id number] [address] [place] [address] [place] No Panel Informationon 04-01 Interpretation and review of laboratory results Abnormal [facility] 36on 03-11-2025 36 Spoke with daughter and informed her I would put orders in and [facility] would be contacting her to set this up. I advised her her father would need lab orders about 1 week prior to scheduled procedure. She verbalized understanding. Orders entered and faxed to [facility]. [facility] 36 Spoke with his daughter Nini. She says he's having extreme leg pain . You aren't here in [place] again for another 4 weeks. Daughter would like to proceed with LE angiogram if that's ok with you? [facility] 36 I received a call fr om radiology at [facility]. This patient is here now for CTA abdomen/pelvis. Due to elevated s. creatinine (2.07, GFR 32), the test was unable to be performed. Would you like him to try again? How long should he wait to get it rescheduled? Thanks. [facility] Orders Onlyon 03-11-2025 Orders Only [id number] Kel Castillo 1955 M Date Provider Department Center 03/11/2025 MELODY HORNE [facility] Family History Problem Relation Age of Onset Diabetes Mother Family Status - Relation Status Age at Mother [facility] CREATININEon 03-11-2025 Creatinine [Mass/Vol] 2.07 mg/dL High 0.70 - 1.30 mg/dL [facility] GFR/1.73 sq M.predicted CKD-EPI (S/P/Bld) [Vol rate/Area] 39 Low >=60 mL/min/1.73m 2 [facility] Interpretation and review of laboratory results Abnormal [facility] EGFR-NON AF SPANISH 32 Low >=60 mL/min/1.73m 2 [facility]IN[facility] 36on 02-25-2025 36 See telephone note o n 02/24/[address] Tolliver. [facility] 36on 02-24-2025 36 Regarding HUBER's performed on 02/18/2025: MD Melody Juarez MA If the patient is having leg pain, please order an abdominal CTA with run offs (bilateral lower extremity angiography) Thanks. Spoke with patient's daughter and she states he's having lots of leg pain. Told her Dr. Tolliver would like further testing and she agreed. Order faxed to [facility]. Daughter verbalized understanding. [facility] 36 Spoke to daughter advised her of Dr. Levi ECHO findings. Daughter verbalized understanding. Daughter is requesting results of HUBER'S advised daughter as soon as Reviews them we will call her with the results. Daughter states she is very concerned with what she read on mychart about HUBER test results Normal [facility] SEGMENTAL BLOOD PRESSUREon 0 02-23-2025 The [place] [id number] Cardiology Report Signed Patient: KEL CASTILLO Jr. MR#: [id number] : 1955 Acct:[id number] Age/Sex: 69 / M ADM Date: 02/18/25 Loc: CARD Attending Dr: Sarah Tolliver M.D. Ordering Physician: Sarah Tolliver M.D. Date of Service: 02/18/25 Procedure(s): CA segmental UE or LE LEENA Accession Number(s): [id number] cc: Susan Watson JACKHAMMER SPLITTER OPERATOR; Sarah Tolliver M.D. [facility] Test Date: 2025-02-18 Pat Name: KEL CASTILLO Department: Room: - Gender: Male Sign Poster: : 1955 Requested By: SARAH TOLLIVER Order Number: [id number] Reading MD: SARAH TOLLIVER Interpretive Statements Bilateral, moderately reduced ankle-brachial indices. 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 Recommend further imaging with CT or invasive angiography. Electronically Signed On 02-23-2025 12:52:03 EDT by SARAH TOLLIVER Dictated By: Sarah Tolliver M.D. Signed By: 02/23/25 1252 02/23/25 1252 DD/ 0841 TD/TT: Media Relations Director: [facility] Radiology, Radiologist, MD - 02/23/[address] [address] Cardiology Report Signed Patient: KEL CASTILLO Jr. MR#: [id number] : 1955 Acct:[id number] Age/Sex: 69 / M ADM Date: 02/18/25 Loc: CARD Attending Dr: Sarah Tolliver M.D. Ordering Physician: Sarah Tolliver M.D. Date of Service: 02/18/25 Procedure(s): CA segmental UE or LE LEENA Accession Number(s): [id number] cc: Susan Watson NP; Sarah Tolliver M.D. [facility] Test Date: 2025-02-18 Pat Name: KEL CASTILLO Department: Room: - Gender: Male Sign Poster: : 1955 Requested By: SARAH TOLLIVER Order Number: [id number] Reading MD: SARAH TOLLIVER Interpretive Statements Bilateral, moderately reduced ankle-brachial indices. 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 Recommend further imaging with CT or invasive angiography. Electronically Signed On 02-23-2025 12:52:03 EDT by SARAH TOLLIVER Dictated By: Sarah Tolliver M.D. Signed By: 02/23/25 1252 02/23/25 1252 DD/ 0841 TD/TT: Media Relations Director: EDWIN Singer SEGMENTAL BLOOD PRESSUREOrde red By: Radiologist Radiology on 02-23-2025 [employer] Work Phone: 36on 02-22-2025 36 Patient's daughter called asking about result of echo. It was just scanned into you about 10 minutes ago. She saw the result from [facility] portal Saturday night and was concerned when she saw the word severe in the result. Daughter told me she called the [facility] physician language and literature division chair Saturday night. I told her it was fine to wait until you reviewed result and I would call her. Thanks. [facility] Telephoneon 02-22-2025 Telephone [id number] Kel Castillo 1955 M Date Provider Department Center 02/22/2025 Ruben-MELODY OLIVA SAMI [facility] Family History Problem Relation Age of Onset Diabetes Mother Family Status - Relation Status Age at Mother [facility] CA ECHO DOPPLER COMPLETEon 0 02-19-2025 [place] [address] Cardiology Report Signed Patient: KEL CASTILLO Jr. MR#: [id number] : 1955 Acct:[id number] Age/Sex: 69 / M ADM Date: 02/18/25 Loc: CARD Attending Dr: Sarah Tolliver M.D. Ordering Physician: Sarah Tolliver M.D. Date of Service: 02/18/25 Procedure(s): CA echo doppler complete Accession Number(s): [id number] cc: Susan Watson NP; Sarah Tolliver M.D. Patient Name: KEL CASTILLO MR#: [id number] : 1955 Exam Date: 02/18/2025 Ordering Doctor: [...] Area (VTI): 2.12 cm2, 2.12 cm2 Deceleration Gilliam: Pressure Half-Time: Peak Velocity(Antegrade Flow): 1.47 m/s Peak Gradient(Antegrade Flow): 8.67 mm[Hg] Mean Velocity(Antegrade Flow): 0.98 m/s Mean Gradient(Antegrade Flow): 4.49 mm[Hg] Velocity Time Integral: 37.64 cm Tricuspid Valve Peak Velocity (Regurgitant Flow): 2.39 m/s, 3.11 m/s, 3.28 m/s Peak Velocity: Pulmonic Valve Mean Gradient: Mean Velocity: (more content not included)... [facility] Radiology, Radiologist, - 02/19/[address] [address] Cardiology Report Signed Patient: KEL CASTILLO Jr. MR#: [id number] : 1955 Acct:[id number] Age/Sex: 69 / M ADM Date: 02/18/25 Loc: CARD Attending Dr: Sarah Tolliver M.D. Ordering Physician: Sarah Tolliver M.D. Date of Service: 02/18/25 Procedure(s): CA echo doppler complete Accession Number(s): [id number] cc: Susan Watson NP; Sarah Tolliver M.D. Patient Name: KEL CASTILLO MR#: [id number] : 1955 Exam Date: 02/18/2025 Ordering Doctor: [...] Area (VTI): 2.12 cm2, 2.12 cm2 Deceleration Gilliam: Pressure Half-Time: Peak Velocity(Antegrade Flow): 1.47 m/s [...] M.D. Signed By: 02/19/251822 DD/ 21 TD/TT: Media Relations Director: [facility] Radiology Study observation (narrative) [facility] CA ECHO DOPPLER COMPLETEOrde red By: Radiologist Radiology on 02-19-2025 [facility] Work Phone: SEGMENTAL BLOOD PRESSUREon 0 02-18-2025 Radiology Study observation (narrative) [facility] CBC (NO DIFF)on 01-12-2025 Erythrocyte distribution width (RBC) [Ratio] 14.9 % Normal 11.5-15 [facility] Comment on above: Performed By: #### U A #### [facility] ([id number]) [address], [address] [place] [address] Hematocrit (Bld) [Volume fraction] 34.1 % Low 39-50 [facility] Comment on above: Performed By: #### U A #### [facility] ([id number]) [address], [address] [place] [address] Hemoglobin (Bld) [Mass/Vol] 11.5 g/dL Low 13-17 [facility] Comment on above: Performed By: #### U A #### [facility] ([id number]) [address], [address] [place] [address] MCH (RBC) [Entitic mass] 30.6 pg Normal 27-34 [facility] Comment on above: Performed By: #### U A #### [facility] ([id number]) [address], [address] [place] [address] MCHC (RBC) [Mass/Vol] 33.6 g/dL Normal 32-36 [facility] Comment on above: Performed By: #### U A #### [facility] ([id number]) [address], [address] [place] [address] MCV (RBC) [Entitic vol] 91 fL Normal 80-100 [facility] Comment on above: Performed By: #### U A #### [facility] ([id number]) [address], [facility] [address] [place] [address] Platelet mean volume (Bld) [Entitic vol] 7.5 fL Normal 7-12 [facility] Comment on above: Performed By: #### U A #### [facility] ([id number]) [address] [address] Platelets (Bld) [#/Vol] 122 10*3/uL Low 150-450 [facility] Comment on above: Performed By: #### U A #### [facility] ([id number]) [address] [address] RBC COUNT 3.75 X10E12/L Low 4.1-5.7 [facility] Comment on above: Performed By: #### U A #### [facility] ([id number]) [address], [address] [address] WBC (Bld) [#/Vol] 5.5 10*3/uL Normal 4-11 [facility] Comment on above: Performed By: #### U A #### [facility] ([id number]) [address] [address] MAGNESIUMon 01-12-2025 Magnesium [Mass/Vol] 2.0 mg/dL Normal 1.8-2.6 [facility] Comment on above: Performed By: #### U A #### [facility] ([id number]) [address] [address] MICROALBUMIN / CREATININE UR INE RATIOon 01-12-2025 Albumin DL <= 20 mg/L (U) [Mass/Vol] 0.9 mg/dL Normal 0.0-1.9 [facility] Comment on above: Performed By: #### C BC, 2276-4, 2731-8, 2132-9, 2284-8, 37722- 6, FEPR, 57951-8, LIVR, 81821-4, RENAL, 3084-1 #### [facility] ([id number]) [address], [address] [place] [address] MALB/CREAT RATIO 6.8 mg/g Normal 0.0-30.0 [facility] Comment on above: Performed By: #### C BC, 2276-4, 2731-8, 2132-9, 2284-8, 33386- 6, FEPR, 82506-4, LIVR, 52751-6, RENAL, 3084-1 #### [facility] ([id number]) [address], [address] [place] [address] URINE CREATININE,RDM 132.37 mg/dL Normal [facility] Comment on above: Performed By: #### C BC, 2276-4, 2731-8, 2-9, 2283-8, 72813- 6, FEPR, 83019-2, LIVR, 11865-6, RENAL, 3084-1 #### [facility] ([id number]) [address], [address] [place] [address] RENAL PANELon 01-12-2025 Albumin [Mass/Vol] 4.1 g/dL Normal 3.2-5.3 [facility] Comment on above: Performed By: #### U A #### [facility] ([id number]) [address], [address] [place] [address] Anion gap [Moles/Vol] 9 mmol/L Normal 5-15 [facility] Comment on above: Performed By: #### U A #### [facility] ([id number]) [address], [address] [place] [address] Calcium [Mass/Vol] 9.1 mg/dL Normal 8.5-10.5 [facility] Comment on above: Performed By: #### U A #### [facility] ([id number]) [address], [address] [place] [address] Chloride [Moles/Vol] 110 mmol/L High 98-109 [facility] Comment on above: Performed By: #### U A #### [facility] ([id number]) [address], [address] [place] [address] CO2 [Moles/Vol] 26 mmol/L Normal 22-32 [facility] Comment on above: Performed By: #### U A #### [facility] ([id number]) [address], [address] [place] [address] Creatinine [Mass/Vol] 1.87 mg/dL High 0.60-1.30 [facility] Comment on above: Result Comment: METH OD TRACEABLE TO IDMS STANDARD Performed By: #### U A #### [facility] ([id number]) [address], [address] [place] [address] GFR/1.73 sq M.predicted among non-blacks MDRD (S/P/Bld) [Vol rate/Area] 38 mL/min/{1.73_m2} Low >=60 [facility] Comment on above: Result Comment: Repo rted eGFR is based on the CKD-EPI 2020 equation that does not use a race coefficient. Performed By: #### U A #### [facility] ([id number]) [address], [address] [place] [address] Glucose [Mass/Vol] 93 mg/dL Normal 65-99 [facility] Comment on above: Performed By: #### U A #### [facility] ([id number]) [address], [address] [place] [address] Phosphate [Mass/Vol] 4.0 mg/dL Normal 2.4-4.9 [facility] Comment on above: Performed By: #### U A #### [facility] ([id number]) [address], [address] [place] [address] Potassium [Moles/Vol] 4.3 mmol/L Normal 3.5-5.0 [facility] Comment on above: Performed By: #### U A #### [facility] ([id number]) [address], [address] [place] [address] Sodium [Moles/Vol] 145 mmol/L Normal 134-146 [facility] Comment on above: Performed By: #### U A #### [facility] ([id number]) [address], [address] [place] [address] Urea nitrogen [Mass/Vol] 30 mg/dL High 5-27 [facility] Comment on above: Performed By: #### U A #### [facility] ([id number]) [address], [address] [place] [address] URINALYSISon 01-12-2025 Bilirubin Ql (U) Negative Normal Negative [facility] Comment on above: Performed By: #### U A #### [facility] ([id number]) [address], [address] [place] [address] BLOOD/HGB Negative Normal Negative [facility] Comment on above: Performed By: #### U A #### [facility] ([id number]) [address], [address] [place] [address] Color (U) Yellow Normal Yellow, Colorless [facility] Comment on above: Performed By: #### U A #### [facility] ([id number]) [address], [address] [place] [address] Glucose Ql (U) Negative Normal Negative [facility] Comment on above: Performed By: #### U A #### [facility] ([id number]) [address], [address] [place] [address] Ketones Ql (U) Negative Normal Negative [facility] Comment on above: Performed By: #### U A #### [facility] ([id number]) [address], [address] [place] [address] Leukocyte esterase Test strip Ql (U) Negative Normal Negative [facility] Comment on above: Performed By: #### U A #### [facility] ([id number]) [address], [address] [place] [address] Nitrite Ql (U) Negative Normal Negative [facility] Comment on above: Performed By: #### U A #### [facility] ([id number]) [address], [address] [place] [address] PH,URINE 6.0 Normal 5.0-8.5 [facility] Comment on above: Performed By: #### U A #### [facility] ([id number]) [address], [address] [place] [address] Protein Ql (U) Negative Normal Negative [facility] Comment on above: Performed By: #### U A #### [facility] ([id number]) [address], [address] [place] [address] Specific gravity (U) [Rel density] 1.018 Normal 1.003-1.035 [facility] Comment on above: Performed By: #### U A #### [facility] ([id number]) [address], [address] [place] [address] TURBIDITY Clear Normal Clear [facility] Comment on above: Performed By: #### U A #### [facility] ([id number]) [address], [address] [place] [address] UROBILINOGEN <1.1 eu/dL Normal <1.1 eu/dL [facility] Comment on above: Performed By: #### U A #### [facility] ([id number]) [address], [address] [place] [address] XR SPINE CERVICAL 3 VWS OR L [...] Wild MD on 01/12/2025 12:57 AM Normal [facility] COMPLETE BLOOD COUNTon 10-20 Erythrocyte distribution width (RBC) [Ratio] 15.0 % Normal 11.5-15.0 [facility] Comment on above: Performed By: #### C BC, 2276-4, 2731-8, 2131-9, 4-8, 84988- 6, FEPR, 17893-9, LIVR, 24287-8, RENAL, 3084-1 #### [facility] ([id number]) [address], [address] [place] [address] Hematocrit (Bld) [Volume fraction] 36.4 % Low 39-49 [facility] Comment on above: Performed By: #### C BC, 2276-4, 2731-8, 2132-9, 2284-8, 70505- 6, FEPR, 99725-3, LIVR, 22652-3, RENAL, 3084-1 #### [facility] ([id number]) [address], [address] [place] [address] Hemoglobin (Bld) [Mass/Vol] 12.5 g/dL Low 13.0-17.0 [facility] Comment on above: Performed By: #### C BC, 6-4, 1-8, 2131-9, 2283-8, 31304- 6, FEPR, 82716-3, LIVR, 77636-0, RENAL, 3084-1 #### [facility] ([id number]) [address], [address] [place] [address] MCH (RBC) [Entitic mass] 30.8 pg Normal 27-34 [facility] Comment on above: Performed By: #### C BC, 6-4, 2730-8, 2131-9, 2283-8, 79758- 6, FEPR, 18903-0, LIVR, 56176-8, RENAL, 308-1 #### [facility] ([id number]) [address], [address] [place] [address] MCHC (RBC) [Mass/Vol] 34.4 g/dL Normal 32-36 [facility] Comment on above: Performed By: #### C BC, 6-4, 2730-8, 2131-9, 2283-8, 23228- 6, FEPR, 31061-2, LIVR, 07696-2, RENAL, 3084-1 #### [facility] ([id number]) [address], [address] [place] [address] MCV (RBC) [Entitic vol] 89 fL Normal 80-100 [facility] Comment on above: Performed By: #### C BC, 6-4, 2730-8, 2131-9, 2283-8, 51385- 6, FEPR, 67799-0, LIVR, 67872-5, RENAL, 3084-1 #### [facility] ([id number]) [address], [address] [place] [address] Platelet mean volume (Bld) [Entitic vol] 7.4 fL Normal 7-12 [facility] Comment on above: Performed By: #### Ben BC, 6-4, 2730-8, 2131-9, 2283-8, 83676- 6, FEPR, 24900-3, LIVR, 55609-0, RENAL, 3084-1 #### [facility] ([id number]) [address] [place] [address], [address] [place] [address] Platelets (Bld) [#/Vol] 145 10*3/uL Low 150-450 [facility] Comment on above: Performed By: #### C BC, 2275-4, 2730-8, 9, 2283-8, 71543- 6, FEPR, 00731-9, LIVR, 43290-1, RENAL, 3084-1 #### [facility] ([id number]) [address] [place] [address], [address] [place] [address] RBC COUNT 4.08 X10E12/L Low 4.10-5.70 [facility] Comment on above: Performed By: #### C BC, 2275-4, 2730-8, 2132-04, 2283-8, 75277- 6, FEPR, 87556-2, LIVR, 18824-0, RENAL, 3084-1 #### [facility] ([id number]) [address] [place] [address], [address] [place] [address] WBC (Bld) [#/Vol] 5.3 10*3/uL Normal 4.0-11.0 [facility] Comment on above: Performed By: #### C BC, 2275-4, 2730-8, 9, 2283-8, 01499- 6, FEPR, 30680-1, LIVR, 10378-2, RENAL, 3084-1 #### [facility] ([id number]) [address] [place] [address], [address] [place] [address] FERRITINon 10-20-2024 Ferritin [Mass/Vol] 67 ng/mL Normal 24-336 [facility] Comment on above: Performed By: #### C BC, 2275-4, 2731-8, 2132-9, 2284-8, 67087- 6, FEPR, 28935-9, LIVR, 60057-9, RENAL, 3084-1 #### [facility] ([id number]) [address], [address] [place] [address] Folate [Mass/Vol]on 10-21-19 25 FOLIC ACID 24.5 ng/mL Normal >5.8 [facility] Comment on above: Result Comment: NEW REFERENCE RANGE Performed By: #### C BC, 2276-4, 1-8, 2132-9, 2284-8, 62238-7, FEPR, 41029-3, LIVR, 61409-5, RENAL, 3084-1 #### [facility] ([id number]) [address], [address] [place] [address] IRON PROFILEon 10-20-2024 Iron [Mass/Vol] 75 ug/dL Normal 50-212 [facility] Comment on above: Performed By: #### C BC, 6-4, 1-8, 2132-9, 2284-8, 62285- 6, FEPR, 24206-3, LIVR, 56551-2, RENAL, 3084-1 #### [facility] ([id number]) [address], [address] [place] [address] IRON BINDING 392 ug/dL Normal 250-425 [facility] Comment on above: Performed By: #### C BC, 2276-4, 1-8, 2-9, 2284-8, 45464- 6, FEPR, 65956-7, LIVR, 75450-2, RENAL, 3084-1 #### [facility] ([id number]) [address], [address] [place] [address] IRON SATURATION 19 % SATURATION Low 20-50 [facility] Comment on above: Performed By: #### C BC, 2276-4, 2731-8, 2132-9, 2284-8, 27720- 6, FEPR, 60543-2, LIVR, 50487-8, RENAL, 3084-1 #### [facility] ([id number]) [address], [address] [place] [address] LIVER PANELon 10-20-2024 Albumin [Mass/Vol] 4.3 g/dL Normal 3.2-5.3 [facility] Comment on above: Performed By: #### U A #### [facility] ([id number]) [address], [address] [place] [address] ALP [Catalytic activity/Vol] 48 U/L Normal 39-130 [facility] Comment on above: Performed By: #### U A #### [facility] ([id number]) [address], [address] [place] [address] ALT [Catalytic activity/Vol] 28 U/L Normal 0-40 [facility] Comment on above: Performed By: #### U A #### [facility] ([id number]) [address], [address] [place] [address] AST [Catalytic activity/Vol] 33 U/L Normal 0-41 [facility] Comment on above: Performed By: #### U A #### [facility] ([id number]) [address], [address] [place] [address] Bilirubin [Mass/Vol] 0.6 mg/dL Normal 0.3-1.2 [facility] Comment on above: Performed By: #### U A #### [facility] ([id number]) [address], [address] [place] [address] Bilirubin.direct [Mass/Vol] 0.2 mg/dL Normal 0.0-0.4 [facility] Comment on above: Performed By: #### U A #### [facility] ([id number]) [address], [address] [place] [address] Protein [Mass/Vol] 6.7 g/dL Normal 6.0-8.0 [facility] Comment on above: Performed By: #### U A #### [facility] ([id number]) [address], [address] [place] [address] Lipid 1996 panelon 5 Cholesterol [Mass/Vol] 119 mg/dL Low 150-200 [facility] Comment on above: Performed By: #### Ben BC, 6-4, 1-8, 2131-9, 2283-8, 88383- 6, FEPR, 68838-8, LIVR, 45176-8, RENAL, 3084-1 #### [facility] ([id number]) [address], [address] [place] [address] Cholesterol in HDL [Mass/Vol] 42 mg/dL Normal >39 [facility] Comment on above: Result Comment: HDL <40 mg/dL - High Risk HDL > or = 40mg/dL- Desirable HDL >60 mg/dL - Negative Risk Performed By: #### Ben BC, 6-4, 1-8, 2131-9, 2283-8, 96004-6, FEPR, 45165-2, LIVR, 90796-6, RENAL, 3084-1 #### [facility] ([id number]) [address], [address] [place] [address] Cholesterol in LDL [Mass/Vol] 52 mg/dL Normal <130 [facility] Comment on above: Result Comment: LDL <100 mg/dL - Desirable LDL >160 mg/dL - High Risk Performed By: #### Ben BC, 6-4, 1-8, 2131-9, 2283-8, 93483-2, FEPR, 28448-5, LIVR, 07001-5, RENAL, 3084-1 #### [facility] ([id number]) [address], [address] [place] [address] Cholesterol in VLDL [Mass/Vol] 25 mg/dL Normal 0-30 [facility] Comment on above: Performed By: #### C BC, 6-4, 2730-8, 2131-9, 2283-8, 51043- 6, FEPR, 11604-9, LIVR, 49900-4, RENAL, 3084-1 #### [facility] ([id number]) [address], [address] [place] [address] CHOLESTEROL:HDL 2.8 Normal 1.0-5.0 [facility] Comment on above: Performed By: #### C BC, 6-4, 2730-8, 2131-9, 2283-8, 75044- 6, FEPR, 32868-8, LIVR, 70478-3, RENAL, 3084-1 #### [facility] ([id number]) [address], [address] [place] [address] Triglyceride [Mass/Vol] 125 mg/dL Normal 27-150 [facility] Comment on above: Performed By: #### C BC, 6-4, 2730-8, 2131-9, 2283-8, 40227- 6, FEPR, 69790-9, LIVR, 40403-7, RENAL, 3084-1 #### [facility] ([id number]) [address], [address] [place] [address] MAGNESIUMon 10-20-2024 Magnesium [Mass/Vol] 2.0 mg/dL Normal 1.8-2.6 [facility] Comment on above: Performed By: #### U A #### [facility] ([id number]) [address], [address] [place] [address] PROTEIN CREAT RATIOon 2024 RANDOM URINE PROTEIN 170 mg/L High <120 [facility] Comment on above: Performed By: #### U A #### [facility] ([id number]) [address], [address] [place] [address] U/PRO/ROOFING CONTRACTOR RATIO CALC 0.09 Normal <0.2 [facility] Comment on above: Result Comment: Neph rotic Syndrome is associated with ratios >3.5 Performed By: #### U A #### [facility] ([id number]) [address], [address] [place] [address] URINE CREATININE,RDM 199.09 mg/dL Normal [facility] Comment on above: Performed By: #### U A #### [facility] ([id number]) [address], [address] [place] [address] Parathyrin.intact [Mass/Vol] on 10-20-2024 PTH INTACT 48 pg/mL Normal 12-88 [facility] Comment on above: Performed By: #### C BC, 2276-4, 2731-8, 2132-9, 2284-8, 71459- 6, FEPR, 71586-3, LIVR, 25303-2, RENAL, 3084-1 #### [facility] ([id number]) [address], [address] [place] [address] RENAL PANELon 10-20-2024 Anion gap [Moles/Vol] 13 mmol/L Normal 5-15 [facility] Comment on above: Performed By: #### U A #### [facility] ([id number]) [address], [address] [place] [address] Calcium [Mass/Vol] 9.2 mg/dL Normal 8.5-10.5 [facility] Comment on above: Performed By: #### U A #### [facility] ([id number]) [address], [address] [place] [address] Chloride [Moles/Vol] 107 mmol/L Normal 98-109 [facility] Comment on above: Performed By: #### U A #### [facility] ([id number]) [address] [address] [place] [address] CO2 [Moles/Vol] 21 mmol/L Low 22-32 [facility] Comment on above: Performed By: #### U A #### [facility] ([id number]) [address] [address] Creatinine [Mass/Vol] 2.23 mg/dL High 0.60-1.30 [facility] Comment on above: Result Comment: METH OD TRACEABLE TO IDMS STANDARD Performed By: #### U A #### [facility] ([id number]) [address] [address] GFR/1.73 sq M.predicted among non-blacks MDRD (S/P/Bld) [Vol rate/Area] 31 mL/min/{1.73_m2} Low >59 [facility] Comment on above: Result Comment: Reported eGFR is based on the CKD-EPI 2020 equation that does not use a race coefficient. Performed By: #### U A #### [facility] ([id number]) [address] [place] [address] Glucose [Mass/Vol] 96 mg/dL Normal 65-99 [facility] Comment on above: Performed By: #### U A #### [facility] ([id number]) [address] [address] [place] [address] Phosphate [Mass/Vol] 4.7 mg/dL Normal 2.4-4.9 [facility] Comment on above: Performed By: #### U A #### [facility] ([id number]) [address] [address] [place] [address] Potassium [Moles/Vol] 4.4 mmol/L Normal 3.5-5.0 [facility] Comment on above: Performed By: #### U A #### [facility] ([id number]) [address], [address] [place] [address] Sodium [Moles/Vol] 141 mmol/L Normal 134-146 [facility] Comment on above: Performed By: #### U A #### [facility] ([id number]) [address], [address] [place] [address] Urea nitrogen [Mass/Vol] 28 mg/dL High 5-27 [facility] Comment on above: Performed By: #### U A #### [facility] ([id number]) [address], [address] [place] [address] URIC ACIDon 10-20-2024 Urate [Mass/Vol] 6.2 mg/dL Normal 2.6-7.2 [facility] Comment on above: Performed By: #### U A #### [facility] ([id number]) [address], [address] [place] [address] URINALYSISon 10-20-2024 Bilirubin Ql (U) Negative Normal NEG [facility] Comment on above: Performed By: #### U A #### [facility] ([id number]) [address], [address] [place] [address] BLOOD/HGB Negative Normal NEG [facility] Comment on above: Performed By: #### U A #### [facility] [facility] ([id number]) [address], [address] [place] [address] Color (U) YELLOW Normal YELLOW [facility] Comment on above: Performed By: #### U A #### [facility] ([id number]) [address], [address] [place] [address] Glucose Ql (U) Negative Normal NEG [facility] Comment on above: Performed By: #### U A #### [facility] ([id number]) [address], [address] [place] [address] Hyaline casts LM Ql (Urine sed) 4 /lpf High 0-2 [facility] Comment on above: Performed By: #### U A #### [facility] ([id number]) [address], [address] [place] [address] Ketones Ql (U) Negative Normal NEG [facility] Comment on above: Performed By: #### U A #### [facility] ([id number]) [address], [address] [place] [address] Leukocyte esterase Test strip Ql (U) Negative Normal NEG [facility] Comment on above: Performed By: #### U A #### [facility] ([id number]) [address], [address] [place] [address] MUCOUS PRESENT Abnormal NONE [facility] Comment on above: Performed By: #### U A #### [facility] ([id number]) [address], [address] [place] [address] Nitrite Ql (U) Negative Normal NEG [facility] Comment on above: Performed By: #### U A #### [facility] ([id number]) [address], [address] [place] [address] pH (U) 6.0 [pH] Normal 5.0-8.5 [facility] Comment on above: Performed By: #### U A #### [facility] ([id number]) [address], [address] [place] [address] Protein Ql (U) Trace Abnormal NEG [facility] Comment on above: Performed By: #### U A #### [facility] ([id number]) [address], [address] [place] [address] R.B.CELLS 0 /hpf Normal 0-5 [facility] Comment on above: Performed By: #### U A #### [facility] ([id number]) [address], [address] [place] [address] Specific gravity (U) [Rel density] 1.023 Normal 1.003-1.035 [facility] Comment on above: Performed By: #### U A #### [facility] ([id number]) [address], [address] [place] [address] TURBIDITY CLEAR Normal CLEAR [facility] Comment on above: Performed By: #### U A #### [facility] ([id number]) [address], [address] [place] [address] Urobilinogen (U) [Mass/Vol] mg/dL Normal <1.1 [facility] Comment on above: Performed By: #### U A #### [facility] ([id number]) [address], [address] [place] [address] W.B.CELLS 2 /hpf Normal 0-5 [facility] Comment on above: Performed By: #### U A #### [facility] ([id number]) [address], [address] [place] [address] VITAMIN B12on 10-20-2024 Cobalamin (Vitamin B12) [Mass/Vol] 462 pg/mL Normal 180-914 [facility] Comment on above: Performed By: #### C BC, 2276-4, 2731-8, 2132-9, 2284-8, 30723- 6, FEPR, 73010-8, LIVR, 68085-7, RENAL, 3084-1 #### [facility] ([id number]) [address], [address] [place] [address] Vitamin D+Metabolites [Mass/ Vol]on 10-20-2024 VITAMIN D 25 HYD TOT 72.1 ng/mL Normal 30-100 [facility] Comment on above: Result Comment: Vitamin D status 25 [place] Vitamin D Deficiency <20 ng/mL Insufficiency 20-29 ng/mL Sufficiency 30-100 ng/mL Toxicity >100 ng/mL NOTE: A pediatric reference range has not been established by the tripoler of this kit. The [place] [employer] recommends a Vitamin D level of = or >20ng/mL in infants and children. Performed By: #### C BC, 2276-4, 2731-8, 2132-9, 2284-8, 40917-3, FEPR, 14552-5, LIVR, 78826-7, RENAL, 3084-1 #### [facility] ([id number]) [address] [place] [address] Office Visiton 10-13-2024 Follow-up visit [id number] Kel Castillo 1955 M Date Provider Department Center 10/13/2024 271-SARAH TOLLIVER SAMI Rasmussen Family History Problem Relation Age of Onset Diabetes Mother Family Status - Relation Status Age at Mother Level of Service:[address] [place] OFFICE/OUTPATIENT ESTABLISHED MOD MDM 30 MIN Normal [facility] CNOVon 10-12-2024 CNOV Office Visit (NEIND4 ) SAMIR CASTILLO ([id number]) 1955 M Date Time Provider Department 10/12/24 11:30 AM EBONY TRENT4 During your visit today, we recorded the [...] Ebony Trent DO 10/12/2024 2:47 PM Signed [facility] General Neurology Follow up/ Established patient visit Individuals who were included in, or assisted with the encounter were: Samir Castillo Ebony Black DO Chief Complaint/Issues: Samir Castillo is a 69 year old male seen in the [facility] for General Neurology for: Memory loss Most [...] a coffee (more content not included)... Normal [facility] CNOVon 09-08-2024 CNOV Office Visit (NPTU10 ) SAMIR CASTILLO ([id number]) 1955 M Date Time Provider Department 09/08/24 8:00 AM MISTY POLO NPTU10 During your visit today, we recorded the following information about you: Misty Polo, PhD 09/10/2024 4:35 PM Signed [facility] Department of Neurology Section of Neuropsychology Neuropsychological Evaluation Report CONFIDENTIAL Patient: Samir Castillo Date of : 1955 Referred by: Ebony Black MD (Neurology) Education: 10 Handedness: R Language(s): Ukrainian Date of Evaluation: 09/08/2024 Mr. Castillo is [...] no Problems with mother's /delivery: no Early PURCHASING/RECEIVING infection, high fever, significant childhood illness: no SCHOOL HISTORY: Years of education completed: 10; left school early because he did not like it. 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 One day will feel worried and next day will feel okay. Has been this way for a long time. Mental health treatment: He endorsed lo (more content not included)... Normal [facility] Lipid 1996 panelon 4 Cholesterol [Mass/Vol] 142 mg/dL Low 150 - 200 mg/dL [facility] Cholesterol in HDL [Mass/Vol] 43 mg/dL 39 - PINF mg/dL [facility] Comment on above: HDL <40 mg/dL - High Risk HDL > or = 40mg/dL- Desirable HDL >60 mg/dL - Negative Risk Cholesterol in HDL/Total Cholesterol [Mass ratio] 3.3 {ratio} 1.0 - 5.0 [facility] Comment on above: PERFORMED AT [facility] [address],[place] [address] Cholesterol in LDL [Mass/Vol] 75 mg/dL NINF - 130 mg/dL [facility] Comment on above: LDL <100 mg/dL - Desirable LDL >160 mg/dL - High Risk Cholesterol in VLDL [Mass/Vol] 24 mg/dL 0 - 30 mg/dL [facility] Interpretation and review of laboratory results Abnormal [facility] Triglyceride [Mass/Vol] 118 mg/dL 27 - 150 mg/dL [facility] Cholesterol [Mass/Vol] 142 mg/dL Low 150-200 [facility] Comment on above: Performed By: #### 2 4331-1 #### [facility] ([id number]) [address], [address] [place] [address] Cholesterol in HDL [Mass/Vol] 43 mg/dL Normal >39 [facility] Comment on above: Result Comment: HDL <40 mg/dL - High Risk HDL > or = 40mg/dL- Desirable HDL >60 mg/dL - Negative Risk Performed By: #### 2 4331-1 #### [facility] ([id number]) [address], [address] [place] [address] Cholesterol in LDL [Mass/Vol] 75 mg/dL Normal <130 [facility] Comment on above: Result Comment: LDL <100 mg/dL - Desirable LDL >160 mg/dL - High Risk Performed By: #### 2 4331-1 #### [facility] ([id number]) [address], [address] [place] [address] Cholesterol in VLDL [Mass/Vol] 24 mg/dL Normal 0-30 [facility] Comment on above: Performed By: #### 2 4331-1 #### [facility] ([id number]) [address], [address] [place] [address] CHOLESTEROL:HDL 3.3 Normal 1.0-5.0 [facility] Comment on above: Performed By: #### 2 4331-1 #### [facility] ([id number]) [address], [address] [place] [address] Triglyceride [Mass/Vol] 118 mg/dL Normal 27-150 [facility] Comment on above: Performed By: #### 2 4331-1 #### [facility] ([id number]) [address], [address] [place] [address] CT BRAIN WO IVCONon 05-12-[address] [...] NO CT EVIDENCE OF ACUTE INTRACRANIAL PROCESS. Media Relations Director: TERRENCE Transcribe Date/Time: May 12 2024 3:59P Dictated by : FIDEL DAVIDSON MD This examination was interpreted and the report reviewed and electronically signed by: FIDEL DAVIDSON MD on May 12 2024 4:07PM EST [id number] Normal [facility] CT Head WO contraston 2023 IMPRESSION: NO CT EVIDENCE OF ACUTE INTRACRANIAL PROCESS. Media Relations Director: [facility] Transcribe Date/Time: May 12 2024 3:59P Dictated by : FIDEL DAVIDSON MD This examination was interpreted and the report reviewed and electronically signed by: FIDEL DAVIDSON MD on May 12 2024 4:07PM EST [facility] * * *Final Report* * * [...] are unremarkable. Localizer images: No additional findings. [facility] Provider, [facility] - 05/12/2024 * * *Final Report* * * DATE OF EXAM: May 12 2024 8:30AM [facility] 0504 - CT BRAIN WO IVCON / [...] NO CT EVIDENCE OF ACUTE INTRACRANIAL PROCESS. Media Relations Director: TERRENCE Transcribe Date/Time: May 12 2024 3:59P Dictated by : FIDEL DAVIDSON MD This examination was interpreted and the report reviewed and electronically signed by: FIDEL DAVIDSON MD on May 12 2024 4:07PM EST [facility] Radiology Study observation (narrative) [facility] CT Head WO contrastOrdered B y: [facility] Provider on 05-12-2024 [facility] CNOVon 05-04-2024 CNOV Office Visit (NEIND4 ) SAMIR CASTILLO ([id number]) 1955 M Date Time Provider Department 05/04/24 9:30 AM EBONY TRENTIND4 During your visit today, we recorded the following information about you: Pulse Blood pressure Weight Height 57/minute 138/63 80.5 kg 1.676 m Ebony Trent DO 05/04/2024 10:17 PM Signed [facility] Neurology Follow up/ Established patient visit Individuals who were included in, or assisted with the encounter were: Samir Castillo Ebony Black DO Chief Complaint/Issues: Samir Castillo is a 69 year old male seen in the [facility] for General Neurology for: Memory loss Most [...] over medications. 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 isos (more content not included)... Normal [facility] CT abdomen pelvis wo conon 0 04-09-2023 CT abdomen pelvis wo con [facility] [place] [address] CT Scan Report Signed Patient: Kel Castillo Jr MR#: [id number] : 1955 Acct:[id number] Age/Sex: 67 / M ADM Date: 04/09/23 Loc: ER Room: Type: [facility] ER Attending Dr: Copies to: Lucy Cope [...] Damien Negrete M.D.04/09/2023 2:28 PM Dictation Location: [place] [address] Transcribed By: [facility] 04/09/23 142 Dictated By: Damien Negrete DO 04/09/23 1422 Signed By: 04/09/23 1428 Normal [facility] Complete Blood Count Auto Di ffon 04-09-2023 Basophils (Bld) [#/Vol] 0.1 10*3/uL Normal 0.0-0.2 [facility] Comment on above: Result Comment: PERF ORMED BY: [place] [address] PATHOLOGIST DETENTION DEPUTY TROY SIGALA M.D. Performed By: #### C BC #### [address] Basophils/100 WBC (Bld) 1.0 % Normal . [facility] Comment on above: Performed By: #### C BC #### [place] [id number] [place] Eosinophils (Bld) [#/Vol] 0.2 10*3/uL Normal 0.0-0.45 [facility] Comment on above: Performed By: #### C BC #### [address] Eosinophils/100 WBC (Bld) 2.8 % Normal . [facility] Comment on above: Performed By: #### C BC #### [address] Erythrocyte distribution width (RBC) [Ratio] 14.5 % Normal 12.0-14.8 [facility] Comment on above: Performed By: #### C BC #### [address] Hematocrit (Bld) [Volume fraction] 39.2 % Normal 38.8-50.0 [facility] Comment on above: Performed By: #### C BC #### [address] Hemoglobin (Bld) [Mass/Vol] 13.0 g/dL Normal 13.0-17.0 [facility] Comment on above: Performed By: #### C BC #### [address] Lymphocytes (Bld) [#/Vol] 1.1 10*3/uL Normal 1.00-4.8 [facility] Comment on above: Performed By: #### C BC #### [address] Lymphocytes/100 WBC (Bld) 14.1 % Normal . [facility] Comment on above: Performed By: #### C BC #### [address] MCH (RBC) [Entitic mass] 30.4 pg Normal 27.5-35.2 [facility] Comment on above: Performed By: #### C BC #### [address] MCV (RBC) [Entitic vol] 91.5 fL Normal 83.5-101 [facility] Comment on above: Performed By: #### C BC #### [facility] [address] Mean Corpuscular HGB Conc 33.2 g/dL Normal 32.5-35.6 [facility] Comment on above: Performed By: #### C BC #### [facility] [address] Monocytes (Bld) [#/Vol] 0.5 10*3/uL Normal 0.0-0.8 [facility] Comment on above: Performed By: #### C BC #### [facility] [address] [place] [address] [place] Monocytes/100 WBC (Bld) 16.97 % Normal 0.00-20.00 [facility] Comment on above: Performed By: #### C BC #### [facility] [address] [place] [address] [place] Monocytes/100 WBC (Bld) 6.6 % Normal . [facility] Comment on above: Performed By: #### C BC #### [facility] [address] [place] [address] [place] Neutrophils (Bld) [#/Vol] 5.9 10*3/uL Normal 1.8-7.7 [facility] Comment on above: Performed By: #### C BC #### [facility] [address] [place] [address] [place] Neutrophils/100 WBC (Bld) 75.5 % Normal . [facility] Comment on above: Performed By: #### C BC #### [facility] [address] [place] [address] [place] NRBC% 0.0 /100{WBC} Normal 0-0.5 [facility] Comment on above: Performed By: #### C BC #### [facility] [address] Platelet mean volume (Bld) [Entitic vol] 7.5 fL Normal 6.6-10.1 [facility] Comment on above: Performed By: #### C BC #### [address] Platelets (Bld) [#/Vol] 180 10*3/uL Normal 150-450 [facility] Comment on above: Performed By: #### C BC #### [address] RBC (Bld) [#/Vol] 4.29 10*6/uL Normal 3.90-5.60 [facility] Comment on above: Performed By: #### C BC #### [address] WBC (Bld) [#/Vol] 7.8 10*3/uL Normal 4.1-10.5 [facility] Comment on above: Performed By: #### C BC #### [address] Comprehensive Metabolic Pane noe 04-09-2023 Albumin [Mass/Vol] 4.3 g/dL Normal 3.5-5.7 [facility] Comment on above: Performed By: #### P TT, LIPASE, PT, CMP #### [address] Albumin/Globulin [Mass ratio] 1.2 {ratio} Normal [facility] Comment on above: Performed By: #### P TT, LIPASE, PT, CMP #### [address] ALP [Catalytic activity/Vol] 105 U/L High 34-104 [facility] Comment on above: Performed By: #### P TT, LIPASE, PT, CMP #### [address] ALT [Catalytic activity/Vol] 61 U/L High 7-52 [facility] Comment on above: Performed By: #### P TT, LIPASE, PT, CMP #### [address] Anion gap [Moles/Vol] 12.5 mmol/L Normal 6.0-15.0 [facility] Comment on above: Performed By: #### P TT, LIPASE, PT, CMP #### [facility] [address] AST [Catalytic activity/Vol] 62 U/L High 13-39 [facility] Comment on above: Performed By: #### P TT, LIPASE, PT, CMP #### [facility] [address] Bilirubin [Mass/Vol] 0.8 mg/dL Normal 0.3-1.0 [facility] Comment on above: Performed By: #### P TT, LIPASE, PT, CMP #### [facility] [address] [place] [address] Calcium [Mass/Vol] 9.0 mg/dL Normal 8.6-10.3 [facility] Comment on above: Performed By: #### P TT, LIPASE, PT, CMP #### [address] Chloride [Moles/Vol] 107 mmol/L Normal 98-107 [facility] Comment on above: Performed By: #### P TT, LIPASE, PT, CMP #### [address] CO2 [Moles/Vol] 25.1 mmol/L Normal 21.0-31.0 [facility] Comment on above: Performed By: #### P TT, LIPASE, PT, CMP #### [facility] [address] [place] [address] [place] Creatinine [Mass/Vol] 1.76 mg/dL High 0.70-1.30 [facility] Comment on above: Performed By: #### P TT, LIPASE, PT, CMP #### [facility] [address] [place] [address] [place] Creatinine Clr Calc Pharmacy 40.17 Normal [facility] Comment on above: Performed By: #### P TT, LIPASE, PT, CMP #### [facility] [address] [place] [address] [place] GFR/1.73 sq M.predicted MDRD (S/P/Bld) [Vol rate/Area] 41.342 mL/min/{1.73_m2} Normal [facility] Comment on above: Performed By: #### P TT, LIPASE, PT, CMP #### [address] Globulin (S) [Mass/Vol] 3.7 g/dL Normal [facility] Comment on above: Performed By: #### P TT, LIPASE, PT, CMP #### [address] Glucose [Mass/Vol] 89 mg/dL Normal 70-100 [facility] Comment on above: Result Comment: [facility] Glucose Reference Range is dependent on time and content of last meal. Glucose of more than 200 mg/dL in a nonstressed, ambulatory subject supports the diagnosis of Diabetes Mellitus. ADA recommended reference range Performed By: #### P TT, LIPASE, PT, CMP #### [address] Potassium [Moles/Vol] 4.6 mmol/L Normal 3.5-5.1 [facility] Comment on above: Performed By: #### P TT, LIPASE, PT, CMP #### [address] Protein [Mass/Vol] 8.0 g/dL Normal 6.4-8.9 [facility] Comment on above: Performed By: #### P TT, LIPASE, PT, CMP #### [place] [address] [place] Sodium [Moles/Vol] 140 mmol/L Normal 136-145 [facility] Comment on above: Performed By: #### P TT, LIPASE, PT, CMP #### [address] Urea nitrogen [Mass/Vol] 25 mg/dL Normal 7-25 [facility] Comment on above: Performed By: #### P TT, LIPASE, PT, CMP #### [place] [address] [place] Dipstick and Microscopicon 0 04-09-2023 Appearance (U) Cloudy Critically abnormal Clear [facility] Comment on above: Order Comment: Name Collection Type:: Clean-Voided Midstream Performed By: #### A DDONUAPLUS #### [facility] [address] [place] [address] [place] Bacteria,Urine None Seen Normal None Seen [facility] Comment on above: Order Comment: Name Collection Type:: Clean-Voided Midstream Performed By: #### A DDONUAPLUS #### [facility] [address] [place] [address] [place] Bilirubin,Urine Negative Normal Negative [facility] Comment on above: Order Comment: Name Collection Type:: Clean-Voided Midstream Performed By: #### A DDONUAPLUS #### [place] [address] [place] Color (U) Yellow Normal Yellow [facility] Comment on above: Order Comment: Name Collection Type:: Clean-Voided Midstream Performed By: #### A DDONUAPLUS #### [facility] [address] [place] [address] [place] Glucose Ql (U) Normal Normal Normal [facility] Comment on above: Order Comment: Name Collection Type:: Clean-Voided Midstream Performed By: #### A DDONUAPLUS #### [place] [address] [place] Hyaline Casts,Urine None Seen Normal 0-8 [facility] Comment on above: Order Comment: Name Collection Type:: Clean-Voided Midstream Result Comment: PERF ORMED BY: [place] [address] PATHOLOGIST DETENTION DEPUTY TROY SIGALA M.D. Performed By: #### A DDONUAPLUS #### [facility] [address] [place] [address] [place] Ketones Ql (U) Negative Normal Negative [facility] Comment on above: Order Comment: Name Collection Type:: Clean-Voided Midstream Performed By: #### A DDONUAPLUS #### [facility] [address] [place] [address] [place] Leukocyte esterase Test strip Ql (U) Negative Normal Negative [facility] Comment on above: Order Comment: Name Collection Type:: Clean-Voided Midstream Performed By: #### A DDONUAPLUS #### [place] [address] [place] Nitrite,Urine Negative Normal Negative [facility] Comment on above: Order Comment: Name Collection Type:: Clean-Voided Midstream Performed By: #### A DDONUAPLUS #### [address] Occult Blood,Urine Negative Normal Negative [facility] Comment on above: Order Comment: Name Collection Type:: Clean-Voided Midstream Result Comment: PERF ORMED BY: [place] [address] PATHOLOGIST DETENTION DEPUTY TROY SIGALA M.D. Performed By: #### A DDONUAPLUS #### [address] pH (U) 5.5 [pH] Normal 5.0-9.0 [facility] Comment on above: Order Comment: Name Collection Type:: Clean-Voided Midstream Performed By: #### A DDONUAPLUS #### [place] [address] [place] Protein,Urine Negative Normal Negative [facility] Comment on above: Order Comment: Name Collection Type:: Clean-Voided Midstream Performed By: #### A DDONUAPLUS #### [place] [address] [place] RBC LM.HPF (Urine sed) [#/Area] 0 /[HPF] Normal 0-4 [facility] Comment on above: Order Comment: Name Collection Type:: Clean-Voided Midstream Performed By: #### A DDONUAPLUS #### [place] [address] [place] Specificy [place],Urine 1.014 Normal 1.001-1.030 [facility] Comment on above: Order Comment: Name Collection Type:: Clean-Voided Midstream Performed By: #### A DDONUAPLUS #### [address] [place] [address] [place] Squamous Epithelial Cell,Urine None Seen Normal 0-2 [facility] Comment on above: Order Comment: Name Collection Type:: Clean-Voided Midstream Performed By: #### A DDONUAPLUS #### [address] Urobilinogen,Urine Normal Normal Normal [facility] Comment on above: Order Comment: Name Collection Type:: Clean-Voided Midstream Performed By: #### A DDONUAPLUS #### [address] WBC LM.HPF (Urine sed) [#/Area] 0 /[HPF] Normal 0-4 [facility] Comment on above: Order Comment: Name Collection Type:: Clean-Voided Midstream Performed By: #### A DDONUAPLUS #### [address] Lipaseon 04-09-2023 Lipase [Catalytic activity/Vol] 92.0 U/L High 11.0-82.0 [facility] Comment on above: Result Comment: PERF ORMED BY: [place] [address] PATHOLOGIST DETENTION DEPUTY TROY SIGALA M.D. Performed By: #### P TT, LIPASE, PT, CMP #### [address] Partial Thromboplastin Timeo n 04-09-2023 aPTT Coag (Bld) [Time] 30.9 s Normal 25.1-36.5 [facility] Comment on above: Result Comment: PERF ORMED BY: [place] [address] PATHOLOGIST DETENTION DEPUTY TROY SIGALA M.D. Performed By: #### P TT, LIPASE, PT, CMP #### [address] Prothrombin Time INRon 04-09 INR Coag (PPP) [Relative time] 1.0 {INR} Normal [facility] Comment on above: Result Comment: INR Therapeutic [...] #### P TT, LIPASE, PT, CMP #### [facility] [address] PT Coag (PPP) [Time] 11.9 s Normal 9.0-12.9 [facility] Comment on above: Performed By: #### P TT, LIPASE, PT, CMP #### [facility] [address] [place] [address] CBC AUTO DIFFon 07-27-2022 BASO # 0.1 103/ul Normal 0.0-0.1 [facility] Comment on above: Performed By: #### C BC #### [facility] [address] [place] [address] Dr. Hattie Newsome Basophils/100 WBC (Bld) 0.8 % Normal 0.2-2.0 [facility] Comment on above: Performed By: #### C BC #### [facility] [address] [place] [address] Dr. Hattie Newsome EO # 0.3 103/ul Normal 0.0-0.7 [facility] Comment on above: Performed By: #### C BC #### [facility] [address] [place] [address] Dr. Hattie Newsome Eosinophils/100 WBC (Bld) 3.2 % Normal 0.9-7.0 [facility] Comment on above: Performed By: #### C BC #### [facility] [address] [place] [address] Dr. Hattie Newsome Erythrocyte distribution width (RBC) [Ratio] 14.3 % Normal 11.0-15.0 [facility] Comment on above: Performed By: #### C BC #### [facility] [address] [place] [address] Dr. Hattie Newsome Hematocrit (Bld) [Volume fraction] 39.7 % Critically low 42.0-54.0 [facility] Comment on above: Performed By: #### C BC #### [facility] [address] [place] [address] Dr. Hattie Newsome Hemoglobin (Bld) [Mass/Vol] 13.0 g/dL Critically low 14.0-18.0 [facility] Comment on above: Performed By: #### C BC #### [facility] [address] [place] [address] Dr. Hattie Newsome IG # 0.06 10e3/ul Critically high 0.00-0.03 [facility] Comment on above: Performed By: #### C BC #### [facility] [address] [place] [address] Dr. Hattie Newsome IG % 0.8 % Critically high 0.0-0.5 [facility] Comment on above: Performed By: #### C BC #### [facility] [address] [place] [address] Dr. Hattie Newsome LYMPH # 1.3 103/ul Normal 1.2-3.8 [facility] Comment on above: Performed By: #### C BC #### [facility] [address] [place] [address] Dr. Hattie Newsome Lymphocytes/100 WBC (Bld) 16.8 % Critically low 20.5-60.0 [facility] Comment on above: Performed By: #### C BC #### [facility] [address] [place] [address] Dr. Hattie Newsome MANUAL DIFF REQ NO Normal [facility] Comment on above: Performed By: #### C BC #### [facility] [address] [place] [address] Dr. Hattie Newsome MCH (RBC) [Entitic mass] 30.5 pg Normal 25.9-34.0 [facility] Comment on above: Performed By: #### C BC #### [facility] [address] [place] [address] Dr. Hattie Newsome MCHC (RBC) [Mass/Vol] 32.7 g/dL Normal 29.9-35.2 [facility] Comment on above: Performed By: #### C BC #### [facility] [address] [place] [address] Dr. Hattie Newsome MCV (RBC) [Entitic vol] 93.2 fL Normal 80.0-94.0 [facility] Comment on above: Performed By: #### C BC #### [facility] [address] [place] [address] Dr. Hattie Newsome MONO # 0.5 103/ul Normal 0.3-0.8 [facility] Comment on above: Performed By: #### C BC #### [facility] [address] [place] [address] Dr. Hattie Newsome Monocytes/100 WBC (Bld) 7.0 % Normal 1.7-12.0 [facility] Comment on above: Performed By: #### C BC #### [facility] [address] [place] [address] Dr. Hattie Newsome NEUT # 5.5 103/ul Normal 1.4-6.5 [facility] Comment on above: Performed By: #### C BC #### [facility] [address] [place] [address] Dr. Hattie Newsome Neutrophils/100 WBC (Bld) 71.4 % Normal 43.0-75.0 [facility] Comment on above: Performed By: #### C BC #### [facility] [address] [place] [address] Dr. Hattie Newsome Platelet mean volume (Bld) [Entitic vol] 9.4 fL Critically low 9.5-13.5 [facility] Comment on above: Performed By: #### C BC #### [facility] [address] [place] [address] Dr. Hattie Newsome PLT 169 103/ul Normal 150-450 [facility] Comment on above: Performed By: #### C BC #### [facility] [address] [place] [address] Dr. Hattie Newsome RBC 4.26 106/ul Critically low 4.70-6.10 [facility] Comment on above: Performed By: #### C BC #### [facility] [address] [address] [address] Hattie Newsome WBC 7.7 103/ul Normal 4.0-11.0 [facility] Comment on above: Performed By: #### C BC #### [facility] [address] [address] [address] Hattie Newsome LIPID PROFILEon 07-27-2022 CHOL-HDL RATIO NORM SEE BELOW Normal [facility] Comment on above: Result Comment: 3.3 - 4.4 LOW RISK 4.4 - 7.1 AVERAGE RISK 7.1 - 11.0 MODERATE RISK >11.0 HIGH RISK Performed By: #### L IPID #### [facility] [address] [place] [address] Dr. Hattie Newsome Cholesterol [Mass/Vol] 131 mg/dL Normal <=200 [facility] Comment on above: Performed By: #### L IPID #### [facility] [address] [address] [address] Hattie Newsome Cholesterol in HDL [Mass/Vol] 40 mg/dL Normal 40-60 [facility] Comment on above: Performed By: #### L IPID #### [facility] [address] [place] [address] Dr. Hattie Newsome Cholesterol in LDL [Mass/Vol] 64.6 mg/dL Normal [facility] Comment on above: Performed By: #### L IPID #### [facility] [address] [place] [address] Dr. Hattie Newsome Cholesterol.total/C holesterol in HDL [Mass ratio] 3.3 {ratio} Normal [facility] Comment on above: Performed By: #### L IPID #### [facility] [address] [place] [address] Dr. Hattie Newsome HDL NORMAL > or = 60 mg/dl - LO W CARDIOVASCULAR RISK <40 mg/dl - HIGH CARDIOVASCULAR RISK Normal [facility] Comment on above: Performed By: #### L IPID #### [facility] [address] [place] [address] Dr. Hattie Newsome LDL CALC NORMAL SEE BELOW Normal [facility] Comment on above: Result Comment: <100 mg/dl OPTIMAL 100 - 129 mg/dl NEAR OR ABOVE OPTIMAL 130 - 159 mg/dl BORDERLINE HIGH 160 - 189 mg/dl HIGH >190 mg/dl VERY HIGH Performed By: #### L IPID #### [facility] [address] [place] [address] Dr. Hattie Newsome Triglyceride [Mass/Vol] 132 mg/dL Normal <=150 [facility] Comment on above: Performed By: #### L IPID #### [facility] [address] [place] [address] Dr. Hattie Newsome VLDL CALC 26.4 mg/dL Normal [facility] Comment on above: Performed By: #### L IPID #### [facility] [address] [place] [address] Dr. Hattie Newsome PARATHYROID HORMONE- RELATED PEPTIDEon 07-15-2022 PTHrP (PTH-Related Peptide) <2.0 Normal [facility] Comment on above: Result Comment: This test was developed and its performance characteristics determined by [facility]. It has not been cleared or approved [...] laboratory. Performed By: #### P THP #### [facility] [address] [place] [address] Dr. Hattie Newsome CBC AUTO DIFFon 07-07-2022 BASO # 0.1 103/ul Normal 0.0-0.1 [facility] Comment on above: Performed By: #### U BLANCA, CMP, MG #### [facility] [address] [place] [address] Dr. Hattie Newsome Basophils/100 WBC (Bld) 0.9 % Normal 0.2-2.0 [facility] Comment on above: Performed By: #### U BLANCA, CMP, MG #### [facility] [address] [place] [address] Dr. Hattie Newsome EO # 0.2 103/ul Normal 0.0-0.7 [facility] Comment on above: Performed By: #### U BLANAC, CMP, MG #### [facility] [address] [place] [address] Dr. Hattie Newsome Eosinophils/100 WBC (Bld) 3.4 % Normal 0.9-7.0 [facility] Comment on above: Performed By: #### U BLANCA, CMP, MG #### [facility] [address] [place] [address] Dr. Hattie Newsome Erythrocyte distribution width (RBC) [Ratio] 14.5 % Normal 11.0-15.0 [facility] Comment on above: Performed By: #### U BLANCA, CMP, MG #### [facility] [address] [place] [address] Dr. Hattie Newsome Hematocrit (Bld) [Volume fraction] 40.1 % Critically low 42.0-54.0 [facility] Comment on above: Performed By: #### U BLANCA, CMP, MG #### [facility] [address] [place] [address] Dr. Hattie Newsome Hemoglobin (Bld) [Mass/Vol] 13.6 g/dL Critically low 14.0-18.0 [facility] Comment on above: Performed By: #### U BLANCA, CMP, MG #### [facility] [address] [place] [address] Dr. Hattie Newsome IG # 0.04 10e3/ul Critically high 0.00-0.03 [facility] Comment on above: Performed By: #### U BLANCA, CMP, MG #### [facility] [address] [place] [address] Dr. Hattie Newsome IG % 0.6 % Critically high 0.0-0.5 [facility] Comment on above: Performed By: #### U BLANCA, CMP, MG #### [facility] [address] [place] [address] Dr. Hattie Newsome LYMPH # 0.9 103/ul Critically low 1.2-3.8 [facility] Comment on above: Performed By: #### U BLANCA, CMP, MG #### [facility] [address] [place] [address] Dr. Hattie Newsome Lymphocytes/100 WBC (Bld) 13.1 % Critically low 20.5-60.0 [facility] Comment on above: Performed By: #### U BLANCA, CMP, MG #### [facility] [address] [place] [address] Dr. Hattie Newsome MANUAL DIFF REQ NO Normal [facility] Comment on above: Performed By: #### U BLANCA, CMP, MG #### [facility] [address] [place] [address] Dr. Hattie Newsome MCH (RBC) [Entitic mass] 30.9 pg Normal 25.9-34.0 [facility] Comment on above: Performed By: #### U BLANCA, CMP, MG #### [facility] [address] [place] [address] Dr. Hattie Newsome MCHC (RBC) [Mass/Vol] 33.9 g/dL Normal 29.9-35.2 [facility] Comment on above: Performed By: #### U BLANCA, CMP, MG #### [facility] [address] [place] [address] Dr. Hattie Newsome MCV (RBC) [Entitic vol] 91.1 fL Normal 80.0-94.0 [facility] Comment on above: Performed By: #### U BLANCA, CMP, MG #### [facility] [address] [place] [address] Dr. Hattie Newsome MONO # 0.3 103/ul Normal 0.3-0.8 [facility] Comment on above: Performed By: #### U BLANCA, CMP, MG #### [facility] [address] [place] [address] Dr. Hattie Newsome Monocytes/100 WBC (Bld) 5.1 % Normal 1.7-12.0 [facility] Comment on above: Performed By: #### U BLANCA, CMP, MG #### [facility] [address] [address] [address] Hattie Newsome NEUT # 5.0 103/ul Normal 1.4-6.5 [facility] Comment on above: Performed By: #### U BLANCA, CMP, MG #### [facility] [address] [address] [address] Hattie Newsome Neutrophils/100 WBC (Bld) 76.9 % Critically high 43.0-75.0 [facility] Comment on above: Performed By: #### U BLANCA, CMP, MG #### [facility] [address] [address] [address] Hattie Newsome Platelet mean volume (Bld) [Entitic vol] 9.0 fL Critically low 9.5-13.5 [facility] Comment on above: Performed By: #### U BLANCA, CMP, MG #### [facility] [address] [address] [address] Hattie Newsome PLT 160 103/ul Normal 150-450 [facility] Comment on above: Performed By: #### U BLANCA, CMP, MG #### [facility] [address] [address] [address] Hattie Newsome RBC 4.40 106/ul Critically low 4.70-6.10 [facility] Comment on above: Performed By: #### U BLANCA, CMP, MG #### [facility] [address] [address] [address] Hattie Newsome WBC 6.5 103/ul Normal 4.0-11.0 [facility] Comment on above: Performed By: #### U BLANCA, CMP, MG #### [facility] [address] [address] [address] Hattie Newsome MAGNESIUMon 07-07-2022 Magnesium [Mass/Vol] 1.8 mg/dL Normal 1.8-2.4 [facility] Comment on above: Performed By: #### U BLANCA, CMP, MG #### [facility] [address] [address] [address] Hattie Newsome PROF 14(COMP METB)on 11-26-2 022 Albumin [Mass/Vol] 3.9 g/dL Normal 3.4-5.0 [facility] Comment on above: Performed By: #### U BLANCA, CMP, MG #### [facility] [address] [address] [address] Hattie Newsome Albumin/Globulin [Mass ratio] 1.0 {ratio} Normal [facility] Comment on above: Performed By: #### U BLANCA, CMP, MG #### [facility] [address] [address] [address] Hattie Newsome ALP [Catalytic activity/Vol] 136 U/L Critically high 46-116 [facility] Comment on above: Performed By: #### U BLANCA, CMP, MG #### [facility] [address] [address] [address] Hattie Newsome ALT [Catalytic activity/Vol] 122 U/L Critically high 16-63 [facility] Comment on above: Performed By: #### U BLANCA, CMP, MG #### [facility] [address] [address] [address] Hattie Newsome Anion gap [Moles/Vol] 12.4 mmol/L Normal [facility] Comment on above: Performed By: #### U BLANCA, CMP, MG #### [facility] [address] [address] [address] Hattie Newsome AST [Catalytic activity/Vol] 72 U/L Critically high 15-37 [facility] Comment on above: Performed By: #### U BLANCA, CMP, MG #### [facility] [address] [address] [address] Hattie Newsome Bilirubin [Mass/Vol] 0.5 mg/dL Normal 0.2-1.0 [facility] Comment on above: Performed By: #### U BLANCA, CMP, MG #### [facility] [address] [address] [address] Hattie Newsome Calcium [Mass/Vol] 9.1 mg/dL Normal 8.5-10.1 [facility] Comment on above: Performed By: #### U BLANCA, CMP, MG #### [facility] [address] [address] [address] Hattie Newsome Chloride [Moles/Vol] 106 mmol/L Normal 98-107 [facility] Comment on above: Performed By: #### U BLANCA, CMP, MG #### [facility] [address] [place] [address] Dr. Hattie Newsome CO2 [Moles/Vol] 25.9 mmol/L Normal 21.0-32.0 [facility] Comment on above: Performed By: #### U BLANCA, CMP, MG #### [facility] [address] [place] [address] Dr. Hattie Newsome Creatinine [Mass/Vol] 1.54 mg/dL Critically high 0.70-1.30 [facility] Comment on above: Performed By: #### U BLANCA, CMP, MG #### [facility] [address] [place] [address] Dr. Hattie Newsome EGFR-AF SPANISH 55 mL/min/1.73m2 Critically low >=60 [facility] Comment on above: Performed By: #### U BLANCA, CMP, MG #### [facility] [address] [place] [address] Dr. Hattie Newsome EGFR-NON AF SPANISH 45 mL/min/1.73m2 Critically low >=60 [facility] Comment on above: Performed By: #### U BLANCA, CMP, MG #### [facility] [address] [place] [address] Dr. Hattie Newsome Globulin (S) [Mass/Vol] 4.0 g/dL Normal [facility] Comment on above: Performed By: #### U BLANCA, CMP, MG #### [facility] [address] [place] [address] Dr. Hattie Newsome Glucose [Mass/Vol] 104 mg/dL Normal 74-106 [facility] Comment on above: Performed By: #### U BLANCA, CMP, MG #### [facility] [address] [place] [address] Dr. Hattie Newsome Potassium [Moles/Vol] 4.3 mmol/L Normal 3.5-5.1 [facility] Comment on above: Performed By: #### U BLANCA, CMP, MG #### [facility] [address] [address] [address] Hattie Newsome Protein [Mass/Vol] 7.9 g/dL Normal 6.4-8.2 [facility] Comment on above: Performed By: #### U BLANCA, CMP, MG #### [facility] [address] [address] [address] Hattie Newsome Sodium [Moles/Vol] 140 mmol/L Normal 136-145 [facility] Comment on above: Performed By: #### U BLANCA, CMP, MG #### [facility] [address] [address] [address] Hattie Newsome Urea nitrogen [Mass/Vol] 14.0 mg/dL Normal 7.0-18.0 [facility] Comment on above: Performed By: #### U BLANCA, CMP, MG #### [facility] [address] [place] [address] Dr. Hattie Newsome Urea nitrogen/Creatinine [Mass ratio] 9.1 mg/mg Normal [facility] Comment on above: Performed By: #### U BLANCA, CMP, MG #### [facility] [address] [place] [address] Dr. Hattie Newsome UA RANDOMon 07-07-2022 Bilirubin Ql (U) Negative Normal NEGATIVE [facility] Comment on above: Performed By: #### U A #### [facility] [address] [place] [address] Dr. Hattie Newsome Clarity (U) CLEAR Normal CLEAR [facility] Comment on above: Performed By: #### U A #### [facility] [address] [place] [address] Dr. Hattie Newsome Color (U) YELLOW Normal YELLOW [facility] Comment on above: Performed By: #### U A #### [facility] [address] [place] [address] Dr. Hattie Newsome Glucose Ql (U) Negative Normal NEGATIVE [facility] Comment on above: Performed By: #### U A #### [facility] [address] [place] [address] Dr. Hattie Newsome Hemoglobin Ql (U) Negative Normal NEGATIVE [facility] Comment on above: Performed By: #### U A #### [facility] [address] [place] [address] Dr. Hattie Newsome Ketones Ql (U) Negative Normal NEGATIVE [facility] Comment on above: Performed By: #### U A #### [facility] [address] [place] [address] Dr. Hattie Newsome LEUKOCYTES Negative Normal NEGATIVE [facility] Comment on above: Performed By: #### U A #### [facility] [address] [place] [address] Dr. Hattie Newsome Nitrite Ql (U) Negative Normal NEGATIVE [facility] Comment on above: Performed By: #### U A #### [facility] [address] [place] [address] Dr. Hattie Newsome pH (U) 5.5 [pH] Normal 5-9 [facility] Comment on above: Performed By: #### U A #### [facility] [address] [place] [address] Dr. Hattie Newsome SPEC GRAVITY >=1.030 Abnormal 1.005-<=1.025 [facility] Comment on above: Performed By: #### U A #### [facility] [address] [place] [address] Dr. Hattie Newsome UA PROTEIN Negative Normal NEGATIVE/ TRACE [facility] Comment on above: Performed By: #### U A #### [facility] [address] [place] [address] Dr. Hattie Newsome Urobilinogen Qn (U) 1.0 {Xavier'U}/dL Normal 0.2 - 1. 0 [facility] Comment on above: Performed By: #### U A #### [facility] [address] [place] [address] Dr. Hattie Newsome URIC ACID SERUMon 07-07-2022 Urate [Mass/Vol] 6.8 mg/dL Normal 3.5-7.2 [facility] Comment on above: Performed By: #### U BLANCA, CMP, MG #### [facility] [address] [address] [address] Hattie Newsome URINE T PROTEIN CREAT RATIOo n 07-07-2022 Protein (U) [Mass/Vol] 27.5 mg/dL Critically high <=12.0 [facility] Comment on above: Performed By: #### U RTPCR #### [facility] [address] [address] [address] Hattie Newsome UR PROT CREAT RAT 0.15 Normal [facility] Comment on above: Performed By: #### U RTPCR #### [facility] [address] [address] [address] Hattie Newsome URINE CREAT 187.29 mg/dL Normal 20.00-300.00 [facility] Comment on above: Performed By: #### U RTPCR #### [facility] [address] [place] [address] Dr. Hattie Newsome VITAMIN D 25 OHon 07-07-2022 VIT D 25-OH 81.5 ng/mL Normal [facility] Comment on above: Performed By: #### V ITAD #### [facility] [address] [place] [address] Dr. Hattie Newsome VIT D RANGES SEE BELOW Normal [facility] Comment on above: Result Comment: <20 ng/mL Vit D deficient 20 - <30 ng/mL Vit D insufficient 30 - 100 ng/mL Vit D sufficient >100 ng/mL Potential Toxicity Performed By: #### V ITAD #### [facility] [address] [place] [address] Dr. Hattie Newsome ECHOCARDIO M/2D COMPLETEon 0 02-21-2022 ECHOCARDIO M/2D COMPLETE Patient: KEL CASTILLO Exam Date: 02/21/2022 : 1955 Gender:M Ordering : DR SARAH TOLLIVER M.D. Admission #: [id number] Family : Order #: [id number] CLICK HERE TO VIEW EXAM ECHOCARDIOGRAM REPORT [...] Yepez M.D. on 02/21/2022 at 16:31 Normal [facility] No Panel Informationon 02-08 [facility] BASIC METABOLIC PANELon 09-13 Calcium [Mass/Vol] 9.2 mg/dL Normal 8.6-10.3 [facility] Comment on above: Order Comment: No: D o not add to previous draw Performed By: #### 0 [id number], [id number] #### [facility] [address] [place] [address], [facility] Chloride [Moles/Vol] 108 mmol/L High 98-107 [facility] Comment on above: Order Comment: No: D o not add to previous draw Performed By: #### 0 0071, [id number] #### [facility] [address] [place] [address], [place] CO2 [Moles/Vol] 26 mmol/L Normal 21-31 [facility] Comment on above: Order Comment: No: D o not add to previous draw Performed By: #### 0 0071, 10991 #### [facility] [address] [place] [address], [place] Creatinine [Mass/Vol] 1.64 mg/dL High 0.70-1.30 [facility] Comment on above: Order Comment: No: D o not add to previous draw Performed By: #### 0 0071, 54743 #### [facility] [address] [place] [address], [place] GFR/1.73 sq M predicted among blacks MDRD (S/P/Bld) [Vol rate/Area] 51 ml/min/1.73sq m Abnormal >60 [facility] Comment on above: Order Comment: No: D o not add to previous draw Performed By: #### 0 0071, 05642 #### [facility] [address] [place] [address], [place] GFR/1.73 sq M predicted among non-blacks MDRD (S/P/Bld) [Vol rate/Area] 42 ml/min/1.73sq m Abnormal >60 [facility] Comment on above: Order Comment: No: D o not add to previous draw Performed By: #### 0 0071, 27725 #### [facility] [address] [place] [address], [place] Glucose [Mass/Vol] 100 mg/dL Normal 70-100 [facility] Comment on above: Order Comment: No: D o not add to previous draw Performed By: #### 0 0071, 35264 #### [facility] [address] [place] [address], [place] Potassium [Moles/Vol] 4.5 mmol/L Normal 3.5-5.1 [facility] Comment on above: Order Comment: No: D o not add to previous draw Performed By: #### 0 0071, 46709 #### [facility] [address] [facility]. [address] Sodium [Moles/Vol] 139 mmol/L Normal 136-145 [facility] Comment on above: Order Comment: No: D o not add to previous draw Performed By: #### 0 0071, 40974 #### [facility] [address] Urea nitrogen [Mass/Vol] 15 mg/dL Normal 7-25 [facility] Comment on above: Order Comment: No: D o not add to previous draw Performed By: #### 0 0071, 20200 #### [facility] [address] CBC W/DIFFon 10-08-2019 ABS BASOPHILS 0.1 10*3/uL Normal 0.0-0.2 [facility] Comment on above: Order Comment: No: D o not add to previous draw Performed By: #### 0 0071, 11919 #### [facility] [address] ABS IMM GRANS 0.1 10*3/uL Normal 0.0-0.2 [facility] Comment on above: Order Comment: No: D o not add to previous draw Performed By: #### 0 0071, 89124 #### [facility] [address] ABS NEUTROPHILS 5.1 10*3/uL Normal 1.6-7.6 [facility] Comment on above: Order Comment: No: D o not add to previous draw Performed By: #### 0 0071, 91931 #### [facility] [address] Basophils/100 WBC (Bld) 0.8 % Normal 0.0-1.0 [facility] Comment on above: Order Comment: No: D o not add to previous draw Performed By: #### 0 0071, 72922 #### [facility] [address] [place] [address], [facility] Eosinophils (Bld) [#/Vol] 0.3 10*3/uL Normal 0.0-0.5 [facility] Comment on above: Order Comment: No: D o not add to previous draw Performed By: #### 0 0071, 03162 #### [facility] [address] [place] [address], [facility] Eosinophils/100 WBC (Bld) 3.9 % Normal 0.0-6.0 [facility] Comment on above: Order Comment: No: D o not add to previous draw Performed By: #### 0 0071, 93653 #### [facility] [address] Erythrocyte distribution width (RBC) [Ratio] 14.3 % Normal 11.5-15.0 [facility] Comment on above: Order Comment: No: D o not add to previous draw Performed By: #### 0 0071, 24127 #### [facility] [address] [place] [address], [facility] Hematocrit (Bld) [Volume fraction] 39.0 % Normal 39.0-50.0 [facility] Comment on above: Order Comment: No: D o not add to previous draw Performed By: #### 0 0071, 93239 #### [facility] [address] [place] [address], [facility] Hemoglobin (Bld) [Mass/Vol] 12.3 g/dL Low 13.0-17.0 [facility] Comment on above: Order Comment: No: D o not add to previous draw Performed By: #### 0 0071, 42691 #### [facility] [address] [place] [id number], [facility] IMMATURE GRANS 0.8 % Normal 0.0-1.0 [facility] Comment on above: Order Comment: No: D o not add to previous draw Performed By: #### 0 0071, 89932 #### [facility] [address] [place] [address], [facility] Lymphocytes (Bld) [#/Vol] 1.2 10*3/uL Normal 1.2-4.0 [facility] Comment on above: Order Comment: No: D o not add to previous draw Performed By: #### 0 0071, 85821 #### [facility] [address] [facility] [place] [address], [facility] Lymphocytes/100 WBC (Bld) 16.1 % Low 20.0-45.0 [facility] Comment on above: Order Comment: No: D o not add to previous draw Performed By: #### 0 0071, 75553 #### [facility] [address] [facility] [place] [address], [facility] MCH (RBC) [Entitic mass] 29.9 pg Normal 27.0-33.0 [facility] Comment on above: Order Comment: No: D o not add to previous draw Performed By: #### 0 0071, 08327 #### [facility] [address] [facility] [place] [id number], [facility] MCHC (RBC) [Mass/Vol] 31.5 g/dL Low 32.0-35.0 [facility] Comment on above: Order Comment: No: D o not add to previous draw Performed By: #### 0 0071, 90901 #### [facility] [address] [place] [address], [facility] MCV (RBC) [Entitic vol] 94.9 fL Normal 82.0-98.0 [facility] Comment on above: Order Comment: No: D o not add to previous draw Performed By: #### 0 0071, 88350 #### [facility] [address] [place] [id number], [facility] Monocytes (Bld) [#/Vol] 0.5 10*3/uL Normal 0.1-1.0 [facility] Comment on above: Order Comment: No: D o not add to previous draw Performed By: #### 0 0071, 14273 #### [facility] [address] [place] [address], [place] MONOS 6.3 % Normal 5.0-12.0 [facility] Comment on above: Order Comment: No: D o not add to previous draw Performed By: #### 0 0071, 34090 #### [facility] [address] [place] [address], [place] Neutrophils/100 WBC (Bld) 72.1 % High 40.0-72.0 [facility] Comment on above: Order Comment: No: D o not add to previous draw Performed By: #### 0 0071, 02012 #### [facility] [address] [place] [address], [place] Nucleated RBC/100 WBC (Bld) [Ratio] 0 % Normal 0-0 [facility] Comment on above: Order Comment: No: D o not add to previous draw Performed By: #### 0 0071, 15635 #### [facility] [address] [place] [address], [place] PLAT CNT 168 10*3/uL Normal 150-400 [facility] Comment on above: Order Comment: No: D o not add to previous draw Performed By: #### 0 0071, 42463 #### [facility] [address] [place] [address], [place] RBC (Bld) [#/Vol] 4.11 10*6/uL Low 4.20-5.70 [facility] Comment on above: Order Comment: No: D o not add to previous draw Performed By: #### 0 0071, 72359 #### [facility] [address] [place] [address], [place] WBC (Bld) [#/Vol] 7.13 10*3/uL Normal 4.00-10.60 [facility] Comment on above: Order Comment: No: D o not add to previous draw Performed By: #### 0 0071, 36299 #### [address] US ABDOMEN LIMITED 020 US ABDOMEN LIMITED [facility] Department of Radiology [address] [place] [id number] ======== Patient Name: KEL CASTILLO : 1955 Sex: M Age: Race: White Pt. Location: [id number] Patient Status: I Ordered Date: 10/08/2019 9:30:00 [...] collection. Electronically signed: Brandy Wilson. Transcribed by: [email or web address], User Resident: BRANDY WILSON Electronically Signed by: BRANDY WILSON @ 10/08/2019 10:13 AM I personally read this/these film(s) with this resident Normal [facility] Comment on above: Order Comment: No: D o not add to previous draw BASIC METABOLIC PANELon 09-13 Calcium [Mass/Vol] 8.7 mg/dL Normal 8.6-10.3 [facility] Comment on above: Order Comment: No: D o not add to previous draw Performed By: #### 0 0071, 70594 #### [facility] [address] [place] [address], [place] Chloride [Moles/Vol] 111 mmol/L High 98-107 [facility] Comment on above: Order Comment: No: D o not add to previous draw Performed By: #### 0 0071, 38209 #### [facility] [address] [place] [address], [place] CO2 [Moles/Vol] 28 mmol/L Normal 21-31 [facility] Comment on above: Order Comment: No: D o not add to previous draw Performed By: #### 0 0071, 44215 #### [facility] [address] [place] [address], [place] Creatinine [Mass/Vol] 1.59 mg/dL High 0.70-1.30 [facility] Comment on above: Order Comment: No: D o not add to previous draw Performed By: #### 0 0071, 62634 #### [facility] [address] [place] [address], [place] GFR/1.73 sq M predicted among blacks MDRD (S/P/Bld) [Vol rate/Area] 53 ml/min/1.73sq m Abnormal >60 [facility] Comment on above: Order Comment: No: D o not add to previous draw Performed By: #### 0 0071, 61029 #### [facility] [address] [place] [address], [place] GFR/1.73 sq M predicted among non-blacks MDRD (S/P/Bld) [Vol rate/Area] 44 ml/min/1.73sq m Abnormal >60 [facility] Comment on above: Order Comment: No: D o not add to previous draw Performed By: #### 0 0071, 06389 #### [facility] [address] [place] [address], [place] Glucose [Mass/Vol] 99 mg/dL Normal 70-100 [facility] Comment on above: Order Comment: No: D o not add to previous draw Performed By: #### 0 0071, 30437 #### [facility] [address] [place] [address], [place] Potassium [Moles/Vol] 4.2 mmol/L Normal 3.5-5.1 [facility] Comment on above: Order Comment: No: D o not add to previous draw Performed By: #### 0 0071, 09629 #### [facility] [address] [place] [address], [place] Sodium [Moles/Vol] 142 mmol/L Normal 136-145 [facility] Comment on above: Order Comment: No: D o not add to previous draw Performed By: #### 0 0071, 38638 #### [facility] [address] [place] [address], [place] Urea nitrogen [Mass/Vol] 16 mg/dL Normal 7-25 [facility] Comment on above: Order Comment: No: D o not add to previous draw Performed By: #### 0 0071, 60260 #### [facility] [address] Cardiovascular Lab Reporton 10-07-2019 Cardiovascular Lab Report [facility] Patient Name: Jose [facility] Ashlee Orta MR #: [id number] Department of Physician: Sarah Tolliver [facility] Division of Service Date: 10/07/2019 Cardiology Birthdate: 1955 Adult Cardiovascular Room #: [id number] Services [facility] [address] [place], [place] [address] Cardiovascular Laboratory Report FINAL IMPRESSIONS: 1. Severe 3-vessel [place] coronary artery disease. 2. A 2/3 bypass [...] on the anatomic and fluoroscopic landmarks. A 6-Yak[place] 11 cm sheath was inserted. Limited femoral [...] P Sarah Tolliver M.D. Date Dict: 10/07/2019/09:10 Elsa Tolliver M.D. Date Trans: 10/07/2019 02:55 P/mmo [id number] cc: Priyank Hendrickson M.D. [address] [place] [id number] Nayana Bledsoe D. [address] [place] [address] Normal [facility] MAGNESIUM BLOODon 10-07-2019 Magnesium [Mass/Vol] 2.1 mg/dL Normal 1.9-2.7 [facility] Comment on above: Order Comment: No: D o not add to previous draw Performed By: #### 0 0071, 19438 #### [facility] [address] [place] [address], [facility] BASIC METABOLIC PANELon 09-13 Calcium [Mass/Vol] 8.7 mg/dL Normal 8.6-10.3 [facility] Comment on above: Order Comment: No: D o not add to previous draw Performed By: #### 0 0071, 04440 #### [facility] [address] [place] [address], [place] Chloride [Moles/Vol] 110 mmol/L High 98-107 [facility] Comment on above: Order Comment: No: D o not add to previous draw Performed By: #### 0 0071, 05142 #### [facility] [address] [place] [address], [place] CO2 [Moles/Vol] 26 mmol/L Normal 21-31 [facility] Comment on above: Order Comment: No: D o not add to previous draw Performed By: #### 0 0071, 28138 #### [facility] [address] [place] [address], [place] Creatinine [Mass/Vol] 1.92 mg/dL High 0.70-1.30 [facility] Comment on above: Order Comment: No: D o not add to previous draw Performed By: #### 0 0071, 56824 #### [facility] [address] [place] [address], [place] GFR/1.73 sq M predicted among blacks MDRD (S/P/Bld) [Vol rate/Area] 43 ml/min/1.73sq m Abnormal >60 [facility] Comment on above: Order Comment: No: D o not add to previous draw Performed By: #### 0 0071, 69105 #### [facility] [address] [place] [address], [place] GFR/1.73 sq M predicted among non-blacks MDRD (S/P/Bld) [Vol rate/Area] 35 ml/min/1.73sq m Abnormal >60 [facility] Comment on above: Order Comment: No: D o not add to previous draw Performed By: #### 0 0071, 10860 #### [facility] [address] [place] [address], [place] Glucose [Mass/Vol] 96 mg/dL Normal 70-100 [facility] Comment on above: Order Comment: No: D o not add to previous draw Performed By: #### 0 0071, 62881 #### [facility] [address] [place] [address], [place] Potassium [Moles/Vol] 4.4 mmol/L Normal 3.5-5.1 [facility] Comment on above: Order Comment: No: D o not add to previous draw Performed By: #### 0 0071, 41190 #### [facility] [address] [place] [address], [place] Sodium [Moles/Vol] 140 mmol/L Normal 136-145 [facility] Comment on above: Order Comment: No: D o not add to previous draw Performed By: #### 0 0071, 05416 #### [facility] [address] [place] [address], [place] Urea nitrogen [Mass/Vol] 25 mg/dL Normal 7-25 [facility] Comment on above: Order Comment: No: D o not add to previous draw Performed By: #### 0 0071, 42619 #### [facility] [address] [place] [address], [place] Calcium [Mass/Vol] 8.8 mg/dL Normal 8.6-10.3 [facility] Comment on above: Order Comment: No: D o not add to previous draw Performed By: #### 0 0071 #### [facility] [address] [place] [address], [place] Chloride [Moles/Vol] 111 mmol/L High 98-107 [facility] Comment on above: Order Comment: No: D o not add to previous draw Performed By: #### 0 0071 #### [facility] [address] [place] [address], [place] CO2 [Moles/Vol] 25 mmol/L Normal 21-31 [facility] Comment on above: Order Comment: No: D o not add to previous draw Performed By: #### 0 0071 #### [facility] [address] [place] [address], [place] Creatinine [Mass/Vol] 1.94 mg/dL High 0.70-1.30 [facility] Comment on above: Order Comment: No: D o not add to previous draw Performed By: #### 0 0071 #### [facility] [address] [place] [address], [place] GFR/1.73 sq M predicted among blacks MDRD (S/P/Bld) [Vol rate/Area] 42 ml/min/1.73sq m Abnormal >60 [facility] Comment on above: Order Comment: No: D o not add to previous draw Performed By: #### 0 0071 #### [facility] [address] [place] [address], [facility] GFR/1.73 sq M predicted among non-blacks MDRD (S/P/Bld) [Vol rate/Area] 35 ml/min/1.73sq m Abnormal >60 [facility] Comment on above: Order Comment: No: D o not add to previous draw Performed By: #### 0 0071 #### [facility] [address] [place] [address], [facility] Glucose [Mass/Vol] 102 mg/dL High 70-100 [facility] Comment on above: Order Comment: No: D o not add to previous draw Performed By: #### 0 0071 #### [facility] [address] [place] [address], [facility] Potassium [Moles/Vol] 4.5 mmol/L Normal 3.5-5.1 [facility] Comment on above: Order Comment: No: D o not add to previous draw Performed By: #### 0 0071 #### [facility] [address] [place] [address], [facility] Sodium [Moles/Vol] 140 mmol/L Normal 136-145 [facility] Comment on above: Order Comment: No: D o not add to previous draw Performed By: #### 0 0071 #### [facility] [address] [place] [address], [facility] Urea nitrogen [Mass/Vol] 27 mg/dL High 7-25 [facility] Comment on above: Order Comment: No: D o not add to previous draw Performed By: #### 0 0071 #### [facility] [address] [facility] [place] [id number], [facility] CBC W/DIFFon 10-06-2019 ABS BASOPHILS 0.1 10*3/uL Normal 0.0-0.2 [facility] Comment on above: Order Comment: No: D o not add to previous draw Performed By: #### 5 0103 #### [facility] [address] [place] [address], [facility] ABS IMM GRANS 0.1 10*3/uL Normal 0.0-0.2 [facility] Comment on above: Order Comment: No: D o not add to previous draw Performed By: #### 5 0103 #### [facility] [address] [place] [address], [facility] ABS NEUTROPHILS 4.2 10*3/uL Normal 1.6-7.6 [facility] Comment on above: Order Comment: No: D o not add to previous draw Performed By: #### 5 0103 #### [facility] [address] [facility] [place] [address], [facility] Basophils/100 WBC (Bld) 0.9 % Normal 0.0-1.0 [facility] Comment on above: Order Comment: No: D o not add to previous draw Performed By: #### 5 0103 #### [facility] [address] [facility] [place] [address], [facility] Eosinophils (Bld) [#/Vol] 0.3 10*3/uL Normal 0.0-0.5 [facility] Comment on above: Order Comment: No: D o not add to previous draw Performed By: #### 5 0103 #### [facility] [address] [facility] [place] [address], [facility] Eosinophils/100 WBC (Bld) 4.8 % Normal 0.0-6.0 [facility] Comment on above: Order Comment: No: D o not add to previous draw Performed By: #### 5 0103 #### [facility] [address] [facility] [place] [address], [facility] Erythrocyte distribution width (RBC) [Ratio] 14.3 % Normal 11.5-15.0 [facility] Comment on above: Order Comment: No: D o not add to previous draw Performed By: #### 5 0103 #### [facility] [address] [facility] [place] [address], [facility] Hematocrit (Bld) [Volume fraction] 37.3 % Low 39.0-50.0 [facility] Comment on above: Order Comment: No: D o not add to previous draw Performed By: #### 5 0103 #### [facility] [address] [place] [address], [facility] Hemoglobin (Bld) [Mass/Vol] 11.7 g/dL Low 13.0-17.0 [facility] Comment on above: Order Comment: No: D o not add to previous draw Performed By: #### 5 3 #### [facility] [address] [facility] [place] [address], [facility] IMMATURE GRANS 1.3 % High 0.0-1.0 [facility] Comment on above: Order Comment: No: D o not add to previous draw Performed By: #### 5 3 #### [facility] [address] [facility] [place] [address], [facility] Lymphocytes (Bld) [#/Vol] 1.5 10*3/uL Normal 1.2-4.0 [facility] Comment on above: Order Comment: No: D o not add to previous draw Performed By: #### 5 3 #### [facility] [address] [facility] [place] [id number], [facility] Lymphocytes/100 WBC (Bld) 21.8 % Normal 20.0-45.0 [facility] Comment on above: Order Comment: No: D o not add to previous draw Performed By: #### 5 3 #### [facility] [address] [facility] [place] [id number], [facility] MCH (RBC) [Entitic mass] 29.5 pg Normal 27.0-33.0 [facility] Comment on above: Order Comment: No: D o not add to previous draw Performed By: #### 5 3 #### [facility] [address] MCHC (RBC) [Mass/Vol] 31.4 g/dL Low 32.0-35.0 [facility] Comment on above: Order Comment: No: D o not add to previous draw Performed By: #### 5 0103 #### [facility] [address] [place] [id number], [facility] MCV (RBC) [Entitic vol] 94.0 fL Normal 82.0-98.0 [facility] Comment on above: Order Comment: No: D o not add to previous draw Performed By: #### 5 0103 #### [facility] [address] [place] [address], [facility] Monocytes (Bld) [#/Vol] 0.6 10*3/uL Normal 0.1-1.0 [facility] Comment on above: Order Comment: No: D o not add to previous draw Performed By: #### 5 0103 #### [facility] [address] [place] [address], [facility] MONOS 8.2 % Normal 5.0-12.0 [facility] Comment on above: Order Comment: No: D o not add to previous draw Performed By: #### 5 0103 #### [facility] [address] [place] [address], [facility] Neutrophils/100 WBC (Bld) 63.0 % Normal 40.0-72.0 [facility] Comment on above: Order Comment: No: D o not add to previous draw Performed By: #### 5 0103 #### [facility] [address] [place] [address], [facility] Nucleated RBC/100 WBC (Bld) [Ratio] 0 % Normal 0-0 [facility] Comment on above: Order Comment: No: D o not add to previous draw Performed By: #### 5 0103 #### [facility] [address] [place] [id number], [facility] PLAT CNT 162 10*3/uL Normal 150-400 [facility] Comment on above: Order Comment: No: D o not add to previous draw Performed By: #### 5 0103 #### [facility] [address] [place] [address], [place] RBC (Bld) [#/Vol] 3.97 10*6/uL Low 4.20-5.70 [facility] Comment on above: Order Comment: No: D o not add to previous draw Performed By: #### 5 0103 #### [facility] [address] [place] [address], [place] WBC (Bld) [#/Vol] 6.69 10*3/uL Normal 4.00-10.60 [facility] Comment on above: Order Comment: No: D o not add to previous draw Performed By: #### 5 0103 #### [facility] [address] [place] [address], [place] BASIC METABOLIC PANELon - Calcium [Mass/Vol] 9.7 mg/dL Normal 8.6-10.3 [facility] Comment on above: Order Comment: No: D o not add to previous draw Performed By: #### 0 0071, 02050 #### [facility] [address] [place] [address], [place] Chloride [Moles/Vol] 105 mmol/L Normal 98-107 [facility] Comment on above: Order Comment: No: D o not add to previous draw Performed By: #### 0 0071, [id number] #### [facility] [address] [place] [address], [place] CO2 [Moles/Vol] 25 mmol/L Normal 21-31 [facility] Comment on above: Order Comment: No: D o not add to previous draw Performed By: #### 0 0071, 06734 #### [facility] [address] [place] [address], [place] Creatinine [Mass/Vol] 2.13 mg/dL High 0.70-1.30 [facility] Comment on above: Order Comment: No: D o not add to previous draw Performed By: #### 0 0071, 47209 #### [facility] [address] [place] [address], [place] GFR/1.73 sq M predicted among blacks MDRD (S/P/Bld) [Vol rate/Area] 38 ml/min/1.73sq m Abnormal >60 [facility] Comment on above: Order Comment: No: D o not add to previous draw Performed By: #### 0 0071, [id number] #### [facility] [address] [place] [address], [place] GFR/1.73 sq M predicted among non-blacks MDRD (S/P/Bld) [Vol rate/Area] 31 ml/min/1.73sq m Abnormal >60 [facility] Comment on above: Order Comment: No: D o not add to previous draw Performed By: #### 0 0071, 16756 #### [facility] [address] [place] [address], [place] Glucose [Mass/Vol] 114 mg/dL High 70-100 [facility] Comment on above: Order Comment: No: D o not add to previous draw Performed By: #### 0 0071, 23332 #### [facility] [address] [place] [address], [place] Potassium [Moles/Vol] 4.7 mmol/L Normal 3.5-5.1 [facility] Comment on above: Order Comment: No: D o not add to previous draw Performed By: #### 0 0071, 11048 #### [facility] [address] [place] [address], [place] Sodium [Moles/Vol] 140 mmol/L Normal 136-145 [facility] Comment on above: Order Comment: No: D o not add to previous draw Performed By: #### 0 0071, 18506 #### [facility] [address] Urea nitrogen [Mass/Vol] 32 mg/dL High 7-25 [facility] Comment on above: Order Comment: No: D o not add to previous draw Performed By: #### 0 0071, 63909 #### [facility] [address] CBC W/DIFFon 10-05-2019 ABS BASOPHILS 0.1 10*3/uL Normal 0.0-0.2 [facility] Comment on above: Performed By: #### 5 0103 #### [facility] [address] ABS IMM GRANS 0.1 10*3/uL Normal 0.0-0.2 [facility] Comment on above: Performed By: #### 5 3 #### [facility] [address] ABS NEUTROPHILS 6.2 10*3/uL Normal 1.6-7.6 [facility] Comment on above: Performed By: #### 5 3 #### [facility] [address] Basophils/100 WBC (Bld) 0.7 % Normal 0.0-1.0 [facility] Comment on above: Performed By: #### 5 0103 #### [facility] [address] [place] [address], [facility] Eosinophils (Bld) [#/Vol] 0.3 10*3/uL Normal 0.0-0.5 [facility] Comment on above: Performed By: #### 5 3 #### [facility] [address] [place] [address], [facility] Eosinophils/100 WBC (Bld) 4.0 % Normal 0.0-6.0 [facility] Comment on above: Performed By: #### 5 102 #### [facility] [address] [facility] Erythrocyte distribution width (RBC) [Ratio] 14.4 % Normal 11.5-15.0 [facility] Comment on above: Performed By: #### 3 #### [facility] [address] [facility] [address] Hematocrit (Bld) [Volume fraction] 39.3 % Normal 39.0-50.0 [facility] Comment on above: Performed By: #### 3 #### [facility] [address] Hemoglobin (Bld) [Mass/Vol] 12.7 g/dL Low 13.0-17.0 [facility] Comment on above: Performed By: #### 102 #### [facility] [address] IMMATURE GRANS 0.8 % Normal 0.0-1.0 [facility] Comment on above: Performed By: #### 3 #### [facility] [address] Lymphocytes (Bld) [#/Vol] 1.4 10*3/uL Normal 1.2-4.0 [facility] Comment on above: Performed By: #### 5 3 #### [facility] [address] [facility]. [address] Lymphocytes/100 WBC (Bld) 16.6 % Low 20.0-45.0 [facility] Comment on above: Performed By: #### 5 3 #### [facility] [address] [place] [address], [facility] MCH (RBC) [Entitic mass] 30.3 pg Normal 27.0-33.0 [facility] Comment on above: Performed By: #### 5 0103 #### [facility] [address] [facility] [address] MCHC (RBC) [Mass/Vol] 32.3 g/dL Normal 32.0-35.0 [facility] Comment on above: Performed By: #### 5 3 #### [facility] [address] [facility] [place] [address], [facility] MCV (RBC) [Entitic vol] 93.8 fL Normal 82.0-98.0 [facility] Comment on above: Performed By: #### 3 #### [facility] [address] [place] [address], [facility] Monocytes (Bld) [#/Vol] 0.4 10*3/uL Normal 0.1-1.0 [facility] Comment on above: Performed By: #### 102 #### [facility] [address] [facility]. [address] MONOS 4.9 % Low 5.0-12.0 [facility] Comment on above: Performed By: #### 5 3 #### [facility] [address] [facility] [place] [address], [facility] Neutrophils/100 WBC (Bld) 73.0 % High 40.0-72.0 [facility] Comment on above: Performed By: #### 3 #### [facility] [address] [facility] [place] [address], [facility] Nucleated RBC/100 WBC (Bld) [Ratio] 0 % Normal 0-0 [facility] Comment on above: Performed By: #### 5 3 #### [facility] [address] [facility] [place] [address], [facility] PLAT CNT 205 10*3/uL Normal 150-400 [facility] Comment on above: Performed By: #### 3 #### [facility] [address] [facility] [place] [address], [facility] RBC (Bld) [#/Vol] 4.19 10*6/uL Low 4.20-5.70 [facility] Comment on above: Performed By: #### 5 0103 #### [facility] [address] [place] [address], [place] WBC (Bld) [#/Vol] 8.53 10*3/uL Normal 4.00-10.60 [facility] Comment on above: Performed By: #### 5 0103 #### [facility] [address] [place] [address], [place] CREATININE URINE RANDOMon Creatinine [Mass/Vol] 62.0 mg/dL Normal [facility] Comment on above: Order Comment: No: D o not add to previous draw Result Comment: Ther e are no established reference values for random urine specimens Performed By: #### 2 5706, 41187, 10212 #### [facility] [address] [place] [address], [place] LIVER BATTERYon 10-05-2019 Albumin [Mass/Vol] 4.6 g/dL Normal 3.5-5.7 [facility] Comment on above: Order Comment: Yes: Add to Previous draw if able Performed By: #### 0 0071, 03412 #### [facility] [address] [place] [address], [facility] ALKALINE PHOSPH 56 IU/L Normal 34-104 [facility] Comment on above: Order Comment: Yes: Add to Previous draw if able Performed By: #### 0 0071, 13804 #### [facility] [address] [place] [address], [place] ALT [Catalytic activity/Vol] 26 U/L Normal 7-52 [facility] Comment on above: Order Comment: Yes: Add to Previous draw if able Performed By: #### 0 0071, 06839 #### [facility] [address] [place] [address], [place] AST [Catalytic activity/Vol] 25 U/L Normal 13-39 [facility] Comment on above: Order Comment: Yes: Add to Previous draw if able Performed By: #### 0 0071, 96584 #### [facility] [address] [place] [address], [facility] Bilirubin [Mass/Vol] 0.5 mg/dL Normal 0.3-1.0 [facility] Comment on above: Order Comment: Yes: Add to Previous draw if able Performed By: #### 0 0071, 17725 #### [facility] [address] [place] [address], [facility] Bilirubin.direct [Mass/Vol] 0.1 mg/dL Normal 0.0-0.2 [facility] Comment on above: Order Comment: Yes: Add to Previous draw if able Performed By: #### 0 0071, 56248 #### [facility] [address] [place] [address], [facility] Protein [Mass/Vol] 7.6 g/dL Normal 6.0-8.3 [facility] Comment on above: Order Comment: Yes: Add to Previous draw if able Performed By: #### 0 0071, 16519 #### [facility] [address] [facility] [place] [address], [facility] SODIUM URINE RANDOMon 2019 Sodium (U) [Moles/Vol] 111 mmol/L Normal [facility] Comment on above: Order Comment: No: D o not add to previous draw Result Comment: Ther e are no established reference values for random urine specimens Performed By: #### 2 5706, 55131, 78532 #### [facility] [address] [facility] [place] [address], [facility] UA,MICROSCOPIC REQUIREDon Appearance (U) CLEAR Normal CLEAR [facility] Comment on above: Order Comment: No: D o not add to previous draw Performed By: #### 9 0150 #### [facility] [address] [place] [address], [place] Bilirubin [Mass/Vol] Negative Normal NEGATIVE [facility] Comment on above: Order Comment: No: D o not add to previous draw Performed By: #### 9 0150 #### [facility] [address] [place] [address], [place] BLOOD Negative Normal NEGATIVE [facility] Comment on above: Order Comment: No: D o not add to previous draw Performed By: #### 9 0150 #### [facility] [address] [place] [address], [place] Color (U) YELLOW Normal YELLOW [facility] Comment on above: Order Comment: No: D o not add to previous draw Performed By: #### 9 0150 #### [facility] [address] [place] [address], [place] EPIS OCC Normal FEW,OCC,NONE SEEN [facility] Comment on above: Order Comment: No: D o not add to previous draw Performed By: #### 9 0150 #### [facility] [address] [place] [address], [place] Glucose [Mass/Vol] Negative Normal NEGATIVE [facility] Comment on above: Order Comment: No: D o not add to previous draw Performed By: #### 9 0150 #### [facility] [address] [place] [address], [place] HYALINE CASTS 1 /LPF Abnormal NONE SEEN [facility] Comment on above: Order Comment: No: D o not add to previous draw Performed By: #### 9 0150 #### [facility] [address] [place] [address], [place] KETONE Negative Normal NEGATIVE [facility] Comment on above: Order Comment: No: D o not add to previous draw Performed By: #### 9 0150 #### [facility] [address] [place] [address], [place] LEUK BURAK Negative Normal NEGATIVE [facility] Comment on above: Order Comment: No: D o not add to previous draw Performed By: #### 9 0150 #### [facility] [address] [place] [address], [place] Nitrite Ql (U) Negative Normal NEGATIVE [facility] Comment on above: Order Comment: No: D o not add to previous draw Performed By: #### 9 0150 #### [facility] [address] [place] [address], [facility] pH (Bld) 6.0 Normal 5.0-8.0 [facility] Comment on above: Order Comment: No: D o not add to previous draw Performed By: #### 9 0150 #### [facility] [address] [place] [address], [place] Protein [Mass/Vol] Negative Normal NEGATIVE [facility] Comment on above: Order Comment: No: D o not add to previous draw Performed By: #### 9 0150 #### [facility] [address] [place] [address], [place] RBC (Bld) [#/Vol] 0-2 Abnormal NONE SEEN [facility] Comment on above: Order Comment: No: D o not add to previous draw Performed By: #### 9 0150 #### [facility] [address] [place] [address], [place] SPEC GRAV 1.012 Low 1.015-1.020 [facility] Comment on above: Order Comment: No: D o not add to previous draw Performed By: #### 9 0150 #### [facility] [address] [place] [address], [place] WBC UA 0-2 Abnormal NONE SEEN [facility] Comment on above: Order Comment: No: D o not add to previous draw Performed By: #### 9 0150 #### [facility] [address] [place] [address], [place] UREA NITROGEN URon 02-24-202 0 Urea nitrogen [Mass/Vol] 566 mg/dL Normal [facility] Comment on above: Order Comment: No: D o not add to previous draw Result Comment: Ther e are no established reference values for random urine specimens Performed By: #### 2 5706, 45894, 98094 #### [address] [address], [facility] US RENALon 10-05-2019 RENAL [facility] Department of Radiology [address] [place] [id number] ======== Patient Name: KEL CASTILLO : 1955 Sex: M Age: Race: White Pt. Location: [id number] Patient Status: I Ordered Date: 10/05/2019 10:45:00 [...] hydronephrosis. Electronically signed: Robinson Castellanos. Transcribed by: [email or web address], User Resident: Electronically Signed by: ROBINSON CASTELLANOS @ 10/05/2019 03:41 PM Normal [facility] Comment on above: Order Comment: [place] nephrosis Vital Signs Date Time Vital Sign Value Performing Clinician Facility 04-01-2025 14:140400 Body height 167.6 cm Bill Gant MD Work Phone: [facility] 04-01-2025 14:14-0400 Body mass index (BMI) [Ratio] 26.63 kg/m2 Bill Gant MD Work Phone: [facility] 04-01-2025 14:14-0400 Body weight 74.84 kg Bill Gant MD Work Phone: [facility] 04-01-2025 14:14-0400 Diastolic blood pressure 58 mm[Hg] Bill Gant MD Work Phone: [facility] 04-01-2025 14:14-0400 Heart rate 59 /min Bill Gant MD Work Phone: [facility] 04-01-2025 14:14-0400 SaO2% (BldA) [Mass fraction] 99 % Bill Gant MD Work Phone: [facility] 04-01-2025 14:14-0400 Systolic blood pressure 123 mm[Hg] Bill Gant MD Work Phone: [facility] 03-10-2025 09:53-0400 Body height 165.1 cm Darrick Verhoff PA-C Work Phone: [employer] [facility] 03-10-2025 09:53-0400 Body mass index (BMI) [Ratio] 27.12 kg/m2 Darrick Verhoff PA-C Work Phone: [employer] [facility] 03-10-2025 09:53-0400 Body weight 73.94 kg Darrick Verhoff PA-C [facility] 03-10-2025 09:53-0400 Diastolic blood pressure 54 mm[Hg] Darrick Verhoff PA-C Work Phone: [facility] [employer] [facility] 03-10-2025 09:53-0400 Heart rate 51 /min Darrick Verhoff PA-C Work Phone: [facility] 03-10-2025 09:53-0400 Respiratory rate 18 /min Darrick Verhoff PA-C Work Phone: [facility] 03-10-2025 09:53-0400 SaO2% (BldA) [Mass fraction] 100 % Darrick Verhoff PA-C Work Phone: [facility] 03-10-2025 09:53-0400 Systolic blood pressure 123 mm[Hg] Darrick Verhoff PA-C Work Phone: [facility] 03-01-2025 13:45-0400 Body mass index (BMI) [Ratio] 25.33 kg/m2 Susan Shirley [employer]ATOR Work Phone: [facility] 03-01-2025 13:45-0400 Body temperature 97.3 [degF] Susan Watson [employer] OPERATOR Work Phone: [facility] 03-01-2025 13:45-0400 Body weight 75.57 kg Susan Shirley [employer] OPERATOR Work Phone: [facility] 03-01-2025 13:45-0400 Diastolic blood pressure 64 mm[Hg] Susan Shirley [employer] SPLITTER OPERATOR Work Phone: [facility] 03-01-2025 13:45-0400 Heart rate 54 /min Susanman Watson [employer] S[employer]ITTER OPERATOR Work Phone: [facility] 03-01-2025 13:45-0400 Respiratory rate 18 /min Susan Watson [employer]ITTER OPERATOR Work Phone: [facility] 03-01-2025 13:45-0400 SaO2% (BldA) [Mass fraction] 97 % Susan Watson [employer] S[employer]ITTER OPERATOR Work Phone: [facility] 03-01-2025 13:45-0400 Systolic blood pressure 126 mm[Hg] Susan Simmonsadriano [employer]HAMMER SPLITTER OPERATOR Work Phone: [facility] 01-27-2025 10:22-0400 Body height 167.6 cm Darrick Verhoff PA-C Work Phone: [facility] 01-27-2025 10:22-0400 Body mass index (BMI) [Ratio] 26.79 kg/m2 Darrick Verhoff PA-C Work Phone: [facility] 01-27-2025 10:22-0400 Body weight 75.3 kg Darrick Verhoff PA-C Work Phone: [facility] 01-27-2025 10:22-0400 Diastolic blood pressure 62 mm[Hg] Darrick Verhoff PA-C Work Phone: [facility] 01-27-2025 10:22-0400 Heart rate 57 /min Darrick Verhoff PA-C Work Phone: [facility] 01-27-2025 10:22-0400 Respiratory rate 20 /min Darrick Verhoff PA-C Work Phone: [facility] 01-27-2025 10:22-0400 Systolic blood pressure 129 mm[Hg] Darrick Verhoff PA-C Work Phone: [facility] 01-19-2025 16:26-0400 Body height 165.1 cm [facility] 01-19-2025 16:26-0400 Body mass index (BMI) [Ratio] 27.8 kg/m2 [facility] 01-19-2025 16:26-0400 Body weight 75.74 kg [facility] 01-19-2025 16:26-0400 Diastolic blood pressure 53 mm[Hg] [facility] 01-19-2025 16:26-0400 Heart rate 64 /min [facility] 01-19-2025 16:26-0400 Respiratory rate 16 /min [facility] 01-19-2025 16:26-0400 SaO2% (BldA) [Mass fraction] 96 % [facility] 01-19-2025 16:26-0400 Systolic blood pressure 125 mm[Hg] [facility] 01-19-2025 13:06-0400 Body mass index (BMI) [Ratio] 25.21 kg/m2 Susan Rigobertorandolphholz [employer] S[employer]ITTER OPERATOR Work Phone: [facility] 01-19-2025 13:06-0400 Body temperature 98.49 [degF] Susan Aichholz [employer] S[employer]ITTER OPERATOR Work Phone: [facility] 01-19-2025 13:06-0400 Body weight 75.21 kg Susan Irisholz [employer] SPLITTER OPERATOR Work Phone: [facility] 01-19-2025 13:06-0400 Diastolic blood pressure 70 mm[Hg] Susan Aichholz [employer] SPLITTER OPERATOR Work Phone: [facility] 01-19-2025 13:06-0400 Heart rate 66 /min Susan Aichholz [employer] SPLITTER OPERATOR Work Phone: [facility] 01-19-2025 13:06-0400 Respiratory rate 18 /min Susan Aichholz [employer] SPLITTER OPERATOR Work Phone: [facility] 01-19-2025 13:06-0400 SaO2% (BldA) [Mass fraction] 96 % Susan Rigobertohholz J[employer]HAMMER SPLITTER OPERATOR Work Phone: [facility] 01-19-2025 13:06-0400 Systolic blood pressure 130 mm[Hg] Susan Aichholz J[employer] SPLITTER OPERATOR Work Phone: [facility] 11-19-2024 13:03-0400 Body mass index (BMI) [Ratio] 25.21 kg/m2 Susan Aichholz [employer]ITTER OPERATOR Work Phone: [facility] 11-19-2024 13:03-0400 Body temperature 98.71 [degF] Susan Aichholz [employer] SPLITTER OPERATOR Work Phone: [facility] 11-19-2024 13:03-0400 Body weight 75.21 kg Susan Watson [employer] S[employer]ITTER OPERATOR Work Phone: [facility] 11-19-2024 13:03-0400 Diastolic blood pressure 70 mm[Hg] Susan Simmonsholz J[employer] SPLITTER OPERATOR Work Phone: [facility] 11-19-2024 13:03-0400 Heart rate 67 /min Susanman Simmonsholz J[employer] SPLITTER OPERATOR Work Phone: [facility] 11-19-2024 13:03-0400 Respiratory rate 18 /min Susanman Simmonsholz J[employer]HAMMER SPLITTER OPERATOR Work Phone: [facility] 11-19-2024 13:03-0400 SaO2% (BldA) [Mass fraction] 96 % Susan Manzoz JACKHAMMER SPLITTER OPERATOR Work Phone: [facility] 11-19-2024 13:03-0400 Systolic blood pressure 130 mm[Hg] Susan Simmonsholz JACKHAMMER SPLITTER OPERATOR Work Phone: [facility] 10-27-2024 15:59-0400 Body height 165.1 cm [facility] 10-27-2024 15:59-0400 Body mass index (BMI) [Ratio] 27.8 kg/m2 [facility] 10-27-2024 15:59-0400 Body weight 75.8 kg [facility] 10-27-2024 15:59-0400 Diastolic blood pressure 73 mm[Hg] [facility] 10-27-2024 15:59-0400 Heart rate 56 /min [facility] 10-27-2024 15:59-0400 Respiratory rate 16 /min [facility] 10-27-2024 15:59-0400 SaO2% (BldA) [Mass fraction] 95 % [facility] 10-27-2024 15:59-0400 Systolic blood pressure 145 mm[Hg] [facility] 10-12-2024 11:22-0500 Body height 165.1 cm Ebony Black DO Work Phone: [facility] 10-12-2024 11:22-0500 Body mass index (BMI) [Ratio] 28.29 kg/m2 Ebony Black DO Work Phone: [facility] 10-12-2024 11:22-0500 Body weight 77.1 kg Ebony Black DO Work Phone: [facility] 10-12-2024 11:22-0500 Diastolic blood pressure 61 mm[Hg] Ebony Black DO Work Phone: [facility] 10-12-2024 11:22-0500 Heart rate 58 /min Ebony Black DO Work Phone: [facility] 10-12-2024 11:22-0500 Systolic blood pressure 136 mm[Hg] Ebony Black DO Work Phone: [facility] 10-08-2024 13:45-0500 Body mass index (BMI) [Ratio] 25.82 kg/m2 Susan Watson JACKHAMMER SPLITTER OPERATOR Work Phone: [facility] 10-08-2024 13:45-0500 Body temperature 98.1 [degF] Susan Watson JACKHAMMER SPLITTER OPERATOR Work Phone: [facility] 10-08-2024 13:45-0500 Body weight 77.02 kg Susan Watson JACKHAMMER SPLITTER OPERATOR Work Phone: [facility] 10-08-2024 13:45-0500 Diastolic blood pressure 72 mm[Hg] Susan Watson JACKHAMMER SPLITTER OPERATOR Work Phone: [facility] 10-08-2024 13:45-0500 Heart rate 51 /min Susan Watson JACKHAMMER SPLITTER OPERATOR Work Phone: [facility] 10-08-2024 13:45-0500 Respiratory rate 18 /min Susan Watson JACKHAMMER SPLITTER OPERATOR Work Phone: [facility] 10-08-2024 13:45-0500 SaO2% (BldA) [Mass fraction] 97 % Susan Watson JACKHAMMER SPLITTER OPERATOR Work Phone: [facility] 10-08-2024 13:45-0500 Systolic blood pressure 130 mm[Hg] Susan Watson JACKHAMMER SPLITTER OPERATOR Work Phone: [facility] 06-17-2024 13:13-0500 Body height 172.7 cm Jayy Coronado JACKHAMMER SPLITTER OPERATOR Work Phone: [facility] 06-17-2024 13:13-0500 Body mass index (BMI) [Ratio] 27.55 kg/m2 Jayy Coronado JACKHAMMER SPLITTER OPERATOR Work Phone: [facility] 06-17-2024 13:13-0500 Body temperature 96.6 [degF] Jayy Coronado JACKHAMMER SPLITTER OPERATOR Work Phone: [facility] 06-17-2024 13:13-0500 Body weight 82.19 kg Jayy Coronado JACKHAMMER SPLITTER OPERATOR Work Phone: [facility] 06-17-2024 13:13-0500 Diastolic blood pressure 78 mm[Hg] Jayy Coronado JACKHAMMER SPLITTER OPERATOR Work Phone: [facility] 06-17-2024 13:13-0500 Heart rate 57 /min Jayy Coronado JACKHAMMER SPLITTER OPERATOR Work Phone: [facility] 06-17-2024 13:13-0500 Respiratory rate 16 /min Jayy Coronado JACKHAMMER SPLITTER OPERATOR Work Phone: [facility] 06-17-2024 13:13-0500 SaO2% (BldA) [Mass fraction] 94 % Jayy Coronado JACKHAMMER SPLITTER OPERATOR Work Phone: [facility] 06-17-2024 13:13-0500 Systolic blood pressure 122 mm[Hg] Jayy Coronado JACKHAMMER SPLITTER OPERATOR Work Phone: [facility] 05-04-2024 09:36-0400 Body height 167.6 cm Ebony Black DO Work Phone: [facility] 05-04-2024 09:36-0400 Body mass index (BMI) [Ratio] 28.64 kg/m2 Ebony Black DO Work Phone: [facility] 05-04-2024 09:36-0400 Body weight 80.5 kg Ebony Black DO Work Phone: [facility] 05-04-2024 09:36-0400 Diastolic blood pressure 63 mm[Hg] Ebony Black DO Work Phone: [facility] 05-04-2024 09:36-0400 Heart rate 57 /min Ebony Black DO Work Phone: [facility] 05-04-2024 09:36-0400 Systolic blood pressure 138 mm[Hg] Ebony Black DO Work Phone: [facility] 03-31-2024 13:00-0400 Body height 167.64 cm [facility] 03-31-2024 13:00-0400 Body mass index (BMI) [Ratio] 29.4 kg/m2 [facility] 03-31-2024 13:00-0400 Body temperature 97 [degF] [facility] 03-31-2024 13:00-0400 Body weight 82.72 kg [facility] 03-31-2024 13:00-0400 Diastolic blood pressure 63 mm[Hg] [facility] 03-31-2024 13:00-0400 Heart rate 58 /min [facility] 03-31-2024 13:00-0400 Respiratory rate 18 /min [facility] 03-31-2024 13:00-0400 SaO2% (BldA) [Mass fraction] 97 % [facility] 03-31-2024 13:00-0400 Systolic blood pressure 143 mm[Hg] [facility] 09-19-2023 13:53-0500 Body height 172.7 cm Shaikh Cornelio LEMON Work Phone: [facility] 09-19-2023 13:53-0500 Body mass index (BMI) [Ratio] 28.43 kg/m2 Shaikh Cornelio LEMON Work Phone: [facility] 09-19-2023 13:53-0500 Body temperature 97.5 [degF] Shaikh Cornelio LEMON Work Phone: [facility] 09-19-2023 13:53-0500 Body weight 84.82 kg Shaikh Cornelio LEMON Work Phone: [facility] 09-19-2023 13:53-0500 Diastolic blood pressure 60 mm[Hg] Shaikh Cornelio LEMON Work Phone: [facility] 09-19-2023 13:53-0500 Heart rate 59 /min Shaikh Cornelio LEMON Work Phone: [facility] 09-19-2023 13:53-0500 SaO2% (BldA) [Mass fraction] 95 % Shaikh Cornelio LEMON Work Phone: [facility] 09-19-2023 13:53-0500 Systolic blood pressure 118 mm[Hg] Shaikh Cornelio LEMON Work Phone: [facility] 01-25-2023 10:00-0400 Body height 167.64 cm Lisseth Wesdiego Other [facility] Other 01-25-2023 10:00-0400 Body mass index (BMI) [Ratio] 31.57 kg/m2 Lisseth Wesdiego Other [facility] Other 01-25-2023 10:00-0400 Body temperature 96.2 [degF] Lisseth Wesdiego Other [facility] Other 01-25-2023 10:00-0400 Body weight 88.72 kg Lisseth Angelcatarina Other [facility] Other 01-25-2023 10:00-0400 Diastolic blood pressure 76 mm[Hg] Lisseth Harveys Other [facility] Other 01-25-2023 10:00-0400 Respiratory rate 20 /min Lisseth Harveys Other [facility] Other 01-25-2023 10:00-0400 SaO2% (BldA) [Mass fraction] 98 % Lisseth Toscano Other [facility] Other 01-25-2023 10:00-0400 Systolic blood pressure 147 mm[Hg] Lisseth Harveys Other [facility] Other 08-15-2022 15:40-0500 Body height 167.6 cm Ebony Mandeep DO Work Phone: [facility] 08-15-2022 15:40-0500 Body weight 89.81 kg Ebony Mandeep DO Work Phone: [facility] 08-15-2022 15:40-0500 Diastolic blood pressure 78 mm[Hg] Ebony Mandeep DO Work Phone: [facility] 08-15-2022 15:40-0500 Heart rate 61 /min Ebony Mandeep DO Work Phone: [facility] 08-15-2022 15:40-0500 SaO2% (BldA) [Mass fraction] 100 % Ebony Mandeep DO Work Phone: [facility] 08-15-2022 15:40-0500 Systolic blood pressure 148 mm[Hg] Ebony Mandeep DO Work Phone: [facility] 07-10-2022 14:40-0500 Body height 167.64 cm Lisseth Toscano Other [facility] Other 07-10-2022 14:40-0500 Body mass index (BMI) [Ratio] 31.95 kg/m2 Lisseth Toscano Other [facility] Other 07-10-2022 14:40-0500 Body weight 89.81 kg Lisseth Toscano Other [facility] Other 07-10-2022 14:40-0500 Diastolic blood pressure 70 mm[Hg] Lisseth Toscano Other [facility] Other 07-10-2022 14:40-0500 SaO2% (BldA) [Mass fraction] 95 % Lisseth Toscano Other [facility] Other 07-10-2022 14:40-0500 Systolic blood pressure 128 mm[Hg] Lisseth Toscano Other [facility] Other 06-05-2022 16:30-0400 Body height 167.64 cm Corona Monroe Other [facility] Other 06-05-2022 16:30-0400 Body mass index (BMI) [Ratio] 32.12 kg/m2 Corona Caseban Other [facility] Other 06-05-2022 16:30-0400 Body temperature 96.5 [degF] Corona Chaban Other [facility] Other 06-05-2022 16:30-0400 Body weight 90.27 kg Corona Chaban Other [facility] Other 06-05-2022 16:30-0400 Diastolic blood pressure 82 mm[Hg] Wallaceal Chaban Other [facility] Other 06-05-2022 16:30-0400 Respiratory rate 20 /min Corona Casesoila Other [facility] Other 06-05-2022 16:30-0400 SaO2% (BldA) [Mass fraction] 96 % Corona Casesoila Other [facility] Other 06-05-2022 16:30-0400 Systolic blood pressure 140 mm[Hg] Corona Mabel Other [facility] Other 04-10-2022 09:44-0400 Body height 165.1 cm Ebony Mandeep DO Work Phone: [facility] 04-10-2022 09:44-0400 Body weight 89.68 kg Ebony Mandeep DO Work Phone: [facility] 04-10-2022 09:44-0400 Diastolic blood pressure 69 mm[Hg] Ebony Mandeep DO Work Phone: [facility] 04-10-2022 09:44-0400 Heart rate 57 /min Ebony Mandeep DO Work Phone: [facility] 04-10-2022 09:44-0400 Systolic blood pressure 146 mm[Hg] Ebony Mandeep DO Work Phone: [facility] 02-27-2022 15:30-0400 Body height 167.64 cm Corona Casesoila Other [facility] Other 02-27-2022 15:30-0400 Body mass index (BMI) [Ratio] 31.95 kg/m2 Corona Mabel Other [facility] Other 02-27-2022 15:30-0400 Body temperature 96.9 [degF] Corona Monroe Other [facility] Other 02-27-2022 15:30-0400 Body weight 89.81 kg Corona Monroe Other [facility] Other 02-27-2022 15:30-0400 Diastolic blood pressure 76 mm[Hg] Corona Caseban Other [facility] Other 02-27-2022 15:30-0400 Respiratory rate 20 /min Corona Casesoila Other [facility] Other 02-27-2022 15:30-0400 SaO2% (BldA) [Mass fraction] 97 % Corona Casesoila Other [facility] Other 02-27-2022 15:30-0400 Systolic blood pressure 142 mm[Hg] Corona Casesoila Other [facility] Other 01-29-2022 12:00-0400 Body height 167.64 cm Cristojuvenal LambGabriele Other [facility] Other 01-29-2022 12:00-0400 Body mass index (BMI) [Ratio] 32.84 kg/m2 Cristo Suazo Other [facility] Other 01-29-2022 12:00-0400 Body weight 92.31 kg Cristo Suazo Other [facility] Other 01-29-2022 12:00-0400 Diastolic blood pressure 78 mm[Hg] Cristo Suazo Other [facility] Other 01-29-2022 12:00-0400 Respiratory rate 18 /min Cristo Suazo Other [facility] Other 01-29-2022 12:00-0400 SaO2% (BldA) [Mass fraction] 98 % Cristo Suazo Other [facility] Other 01-29-2022 12:00-0400 Systolic blood pressure 142 mm[Hg] Cristo Suazo Other [facility] Other 12-26-2021 17:00-0400 Body height 167.64 cm Cristo Suazo Other [facility] Other 12-26-2021 17:00-0400 Body mass index (BMI) [Ratio] 31.15 kg/m2 Cristo Suazo Other [facility] Other 12-26-2021 17:00-0400 Body weight 87.54 kg Cristo Suazo Other [facility] Other 12-26-2021 17:00-0400 Diastolic blood pressure 79 mm[Hg] Cristo Suazo Other [facility] Other 12-26-2021 17:00-0400 Respiratory rate 18 /min Cristo Suazo Other [facility] Other 12-26-2021 17:00-0400 SaO2% (BldA) [Mass fraction] 95 % Cristo Suazo Other [facility] Other 12-26-2021 17:00-0400 Systolic blood pressure 161 mm[Hg] Cristo Suazo Other [facility] Other 12-22-2021 08:25-0400 Body height 165.1 cm Jessie Bright MD Work Phone: [facility] 12-22-2021 08:25-0400 Body weight 87.68 kg Jessie Bright MD Work Phone: [facility] 12-22-2021 08:25-0400 Diastolic blood pressure 70 mm[Hg] Jessie Bright MD Work Phone: [facility] 12-22-2021 08:25-0400 Heart rate 59 /min Jessie Bright MD Work Phone: [facility] 12-22-2021 08:25-0400 Systolic blood pressure 153 mm[Hg] Jessie Bright MD Work Phone: [facility] 05-23-2021 15:40-0400 Body height 167.64 cm Reuben Mccrarymckenzie Other [facility] Other 05-23-2021 15:40-0400 Body mass index (BMI) [Ratio] 30.84 kg/m2 Reuben Mccrarymckenzie Other [facility] Other 05-23-2021 15:40-0400 Body temperature 96.3 [degF] Reuben Kong Other [facility] Other 05-23-2021 15:40-0400 Body weight 86.68 kg Reuben Kong Other [facility] Other 05-23-2021 15:40-0400 Diastolic blood pressure 62 mm[Hg] Reuben Kong Other [facility] Other 05-23-2021 15:40-0400 Respiratory rate 18 /min Reuben Kong Other [facility] Other 05-23-2021 15:40-0400 SaO2% (BldA) [Mass fraction] 94 % Reuben Kong Other [facility] Other 05-23-2021 15:40-0400 Systolic blood pressure 140 mm[Hg] Reuben Triana Other [facility] Other Encounters Encounter Date Encounter Type Care Provider Facility Start: 04-21-2025 End: 04-21-2025 ambulatory [facility] Start: 04-15-2025 End: 04-15-2025 ambulatory [facility] Start: 04-08-2025 End: 04-08-2025 ambulatory [facility] Start: 04-05-2025 End: 04-05-2025 Telephone encounter Bill Gatn MD Work Phone: [facility] Comment on above: 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 - [employer] the[employer] Start: 04-05-2025 End: 04-05-2025 ambulatory BILL GANT [facility] Start: 04-02-2025 End: 04-02-2025 Follow-up encounter Bill Gant MD Work Phone: [facility] Comment on above: Results Start: 04-01-2025 End: 04-01-2025 ambulatory BILL GANT Facility:[facility] Start: 04-01-2025 End: 04-01-2025 Patient encounter procedure Bill Gant MD Work Phone: [facility] Comment on above: Coronary artery dise ase involving [place] coronary artery of [place] heart without angina pectoris (Primary Dx); Hx [...] Department Unsolicited Start: 04-01-2025 End: 04-01-2025 ambulatory [facility] Start: 03-11-2025 End: 03-11-2025 Clinisync Result Encounter Generic External Data Provider [facility] External Department Unsolicited Start: 03-11-2025 End: 03-11-2025 Clinisync Result Encounter Generic External Data Provider [facility] External Department Unsolicited Start: 03-10-2025 End: 03-10-2025 [facility] [address] [facility]: [facility] Comment on above: Cervical spondylosis (Primary Dx) Start: 03-10-2025 End: 03-10-2025 [facility] Start: 03-01-2025 End: 03-01-2025 Bamboo flowsheet Susan Shirley JACKHAMMER SPLITTER OPERATOR Work Phone: [facility] Start: 03-01-2025 End: 03-01-2025 Bamboo flowsheet Susan Shirley JACKHAMMER SPLITTER OPERATOR Work Phone: [facility] Start: 03-01-2025 End: 03-01-2025 ambulatory SUSAN AICHHOLZ Not Available Start: 03-01-2025 End: 03-01-2025 Office outpatient visit 25 minutes Susan Shirley JACKHAMMER SPLITTER OPERATOR Work Phone: [facility] Comment on above: Cervical spondylosis (Primary Dx); Chronic diastolic heart failure (HCC); Primary hypertension ; Coronary artery disease involving [place] coronary artery of [place] heart without angina pectoris ; Chronic kidney [...] Unsolicited Start: 02-19-2025 End: 02-19-2025 ambulatory ABIODUN CHERRY [facility] Start: 02-18-2025 End: 02-23-2025 Clinisync Result Encounter Generic External Data Provider [facility] External Department Unsolicited Start: 02-18-2025 End: 02-23-2025 Clinisync Result Encounter Generic External Data Provider [facility] External Department Unsolicited Start: 01-27-2025 End: 01-27-2025 Office outpatient new 45 minutes Darrick Sauer PA-C Work Phone: [facility] Comment on above: Cervical spondylosis (Primary Dx) Start: 01-27-2025 End: 01-27-2025 ambulatory DARRICK HENRYELYSSA [facility] Start: 01-19-2025 End: 01-19-2025 Patient encounter procedure [facility] Adilson Work Phone: Start: 01-19-2025 End: 01-19-2025 Bamboo flowsheet Susan Watson JACKHAMMER SPLITTER OPERATOR Work Phone: [facility] Start: 01-19-2025 End: 01-19-2025 Bamboo flowsheet Susan Watson JACKHAMMER SPLITTER OPERATOR Work Phone: [facility] Start: 01-19-2025 End: 01-19-2025 ambulatory SUSAN WATSON [facility] Work Phone: Start: 01-19-2025 End: 01-19-2025 Office outpatient visit 25 minutes Susan Watson JACKHAMMER SPLITTER OPERATOR Work Phone: [facility] Comment on above: Cervical spondylosis (Primary Dx); Neck pain; Primary hypertension (CMS/HCC); Chronic kidney disease, stage 4 (severe) (CMS/HCC); EDITH (generalized anxiety disorder) (CMS/HCC); H/O: lung cancer; MCI (mild cognitive impairment) Start: 01-14-2025 ambulatory [facility] Start: 01-12-2025 ambulatory [facility] Start: 01-11-2025 End: 01-11-2025 ambulatory SUSAN Xavi [facility] Start: 01-07-2025 End: 01-07-2025 Orders Only Susan Watson JACKHAMMER SPLITTER OPERATOR Work Phone: [facility] Comment on above: Neck pain (Primary D x) Start: 12-24-2024 End: 12-24-2024 Refill Susan Watson JACKHAMMER SPLITTER OPERATOR Work Phone: [facility] Comment on above: Primary hypertension (CMS/HCC); Other hyperlipidemia; Neck pain; Recurrent major 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) (CMS/HCC); Coronary artery disease involving [place] coronary artery of [place] heart without angina pectoris ([facility]/HCC); Gastroesophageal reflux disease without esophagitis; Chronic obstructive pulmonary disease, unspecified COPD type ([facility]/HCC); EDITH (generalized anxiety disorder) (CMS/HCC) Start: 12-07-2024 End: 12-07-2024 Refill Susan Watson JACKHAMMER SPLITTER OPERATOR Work Phone: [facility] Comment on above: Other hyperlipidemia ; Coronary artery disease involving [place] coronary artery of sk[place] heart without angina pectoris (CMS/HCC); Primary hypertension (CMS/HCC); Recurrent major 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) ([facility]/HCC); EDITH (generalized anxiety disorder) (CMS/HCC) Start: 12-01-2024 End: 12-01-2024 Refill Susan Watson JACKHAMMER SPLITTER OPERATOR Work Phone: [facility] Comment on above: EDITH (generalized anx iety disorder) (CMS/HCC) (Primary Dx) Start: 11-19-2024 End: 11-19-2024 Bamboo flowsheet Susan Watson JACKHAMMER SPLITTER OPERATOR Work Phone: [facility] Start: 11-19-2024 End: 11-19-2024 Bamboo flowsheet Susan Watson JACKHAMMER SPLITTER OPERATOR Work Phone: [facility] Start: 11-19-2024 End: 11-19-2024 Office outpatient visit 25 minutes Susan Watson JACKHAMMER SPLITTER OPERATOR Work Phone: [facility] Comment on above: Neck pain (Primary D x); Primary hypertension (CMS/HCC); Chronic kidney disease, stage 4 (severe) (CMS/HCC); EDITH (generalized anxiety disorder) (CMS/HCC); Functional gait abnormality; MCI (mild cognitive impairment) Start: 11-19-2024 End: 11-19-2024 ambulatory SUSANMan WATSON Not Available Start: 11-13-2024 End: 11-13-2024 Refill Susan Watson JACKHAMMER SPLITTER OPERATOR Work Phone: [facility] Comment on above: Primary hypertension (CMS/HCC); Other hyperlipidemia; Recurrent major 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) (CMS/HCC); Coronary artery disease involving [place] coronary artery of sk[place] heart without angina pectoris (CMS/HCC); Gastroesophageal reflux disease without esophagitis; EDITH (generalized anxiety disorder) (CMS/HCC) Start: 11-12-2024 End: 11-12-2024 Refill Susan Watson JACKHAMMER SPLITTER OPERATOR Work Phone: [facility] Comment on above: Primary hypertension (CMS/HCC); Other hyperlipidemia; Recurrent major 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) (CMS/HCC); Coronary artery disease involving sk[place] coronary artery of sk[place] heart without angina pectoris (CMS/HCC); Gastroesophageal reflux disease without esophagitis; EDITH (generalized anxiety disorder) (CMS/HCC) Start: 11-09-2024 End: 11-09-2024 Refill Susan Watson JACKHAMMER SPLITTER OPERATOR Work Phone: [facility] Comment on above: Other hyperlipidemia (CMS/HCC); EDITH (generalized anxiety disorder) (CMS/HCC); Recurrent major 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) (CMS/HCC) Start: 10-27-2024 End: 10-27-2024 ambulatory [facility] Work Phone: Start: 10-27-2024 End: 10-27-2024 Patient encounter procedure [facility] Nephrology Adilson Work Phone: Start: 10-20-2024 End: 10-20-2024 ambulatory [facility] Start: 10-13-2024 End: 10-13-2024 ambulatory [facility] Start: 10-12-2024 End: 10-12-2024 ambulatory EBONY BLACK Facility:[facility] Start: 10-12-2024 End: 10-12-2024 Patient encounter procedure Ebony Black DO Work Phone: Neurology Comment on above: Gait abnormality (Pr imary Dx); Memory loss; Neck pain Start: 10-08-2024 End: 10-08-2024 Bamboo flowsheet Susan Watson JACKHAMMER SPLITTER OPERATOR Work Phone: [facility] Start: 10-08-2024 End: 10-08-2024 Bamboo flowsheet Susan Watson JACKHAMMER SPLITTER OPERATOR Work Phone: [facility] Start: 10-08-2024 End: 10-08-2024 ambulatory SUSAN WATSON Not Available Start: 10-08-2024 End: 10-08-2024 Office outpatient visit 25 minutes Susan Watson JACKHAMMER SPLITTER OPERATOR Work Phone: [facility] Comment on above: Primary hypertension (CMS/HCC) (Primary Dx); Chronic obstructive pulmonary disease, unspecified (CMS/HCC); Chronic kidney disease, stage 4 (severe) (CMS/HCC); Coronary artery disease involving sk[place] coronary artery of sk[place] heart without angina pectoris (CMS/HCC); Gastroesophageal reflux disease without esophagitis; EDITH (generalized anxiety disorder) (CMS/HCC); Recurrent major depressive disorder, in full remission (CMS/HCC); Mixed hyperlipidemia (CMS/HCC); MCI (mild cognitive impairment); Other hyperlipidemia (CMS/HCC); Recurrent major 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) (CMS/HCC); Chronic obstructive pulmonary disease, unspecified COPD type (CMS/HCC) Start: 09-08-2024 End: 09-08-2024 ambulatory MISTY POLO Facility:[facility] Start: 09-08-2024 End: 09-08-2024 Patient encounter procedure Misty Polo PhD Work Phone: Neuropyschology Comment on above: Major neurocognitive disorder (HCC) (Primary Dx); JITENDRA (obstructive sleep apnea); Chronic kidney disease, unspecified CKD stage; Coronary artery disease, unspecified vessel or lesion type, unspecified whether angina present, unspecified whether sk[place] or transplanted heart; Complaints of memory disturbance Start: 06-27-2024 End: 06-27-2024 Orders Only Jayy Coronado JACKHAMMER SPLITTER OPERATOR Work Phone: [facility] Comment on above: 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) (CMS/HCC) Start: 06-23-2024 End: 06-23-2024 External Result Encounter Jayy Coronado JACKHAMMER SPLITTER OPERATOR Work Phone: [facility] External Department Unsolicited Start: 06-23-2024 End: 06-23-2024 External Result Encounter Jayy Coronado JACKHAMMER SPLITTER OPERATOR Work Phone: [facility] External Department Unsolicited Start: 06-23-2024 End: 06-23-2024 ambulatory JAYY CORONADO [facility] Start: 06-17-2024 End: 06-17-2024 Bamboo flowsheet Jayy Coronado JACKHAMMER SPLITTER OPERATOR Work Phone: [facility] Start: 06-17-2024 End: 06-17-2024 Bamboo flowsheet Jayy Coronado JACKHAMMER SPLITTER OPERATOR Work Phone: [facility] Start: 06-17-2024 End: 06-17-2024 ambulatory JAYY CORONADO Not Available Start: 06-17-2024 End: 06-17-2024 Office outpatient visit 15 minutes Jayy Coronado JACKHAMMER SPLITTER OPERATOR Work Phone: [facility] Comment on above: Primary hypertension (CMS/HCC) (Primary Dx); Other hyperlipidemia (CMS/HCC); Coronary artery disease involving sk[place] coronary artery of skok[place]ish heart without angina pectoris (CMS/HCC); Frequent falls; Functional gait abnormality; CKD (chronic kidney disease) stage 4, GFR 15-29 ml/min ([facility]) Start: 06-10-2024 End: 06-10-2024 Bamboo flowsheet Jayy Walshtrick JACKHAMMER SPLITTER OPERATOR Work Phone: [facility] Start: 06-10-2024 End: 06-10-2024 Bamboo flowsheet Jayy Walshtrick JACKHAMMER SPLITTER OPERATOR Work Phone: [facility] Start: 06-10-2024 ambulatory JAYY WALSHTRICK No t Available Start: 05-12-2024 ambulatory EBONY KAUFMAN Facility: [facility] Start: 05-12-2024 End: 05-12-2024 Subsequent hospital visit by physician [facility] Radiology Comment on above: Memory loss [R41.3] Start: 05-04-2024 End: 05-04-2024 ambulatory EBONY BLACK Facility:[facility] Start: 05-04-2024 End: 05-04-2024 Patient encounter procedure Ebony Mandeep Sofia DO Work Phone: Neurology Comment on above: Memory loss (Primary Dx); Abnormality of gait Start: 03-31-2024 End: 03-31-2024 ambulatory [facility] Work Phone: Start: 03-31-2024 End: 03-31-2024 Patient encounter procedure [facility] Nephrology Adilson Work Phone: Start: 03-28-2024 End: 03-30-2024 Refill Shaikh Cornelio LEMON Work Phone: [facility] Comment on above: Gastroesophageal ref lux disease without esophagitis; Recurrent major 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) ([facility]) Start: 03-11-2024 End: 03-11-2024 ambulatory SHAIKH CORNELIO Not Available Start: 09-19-2023 End: 09-19-2023 Office outpatient visit 25 minutes Shaikh Cornelio LEMON Work Phone: [facility] Comment on above: 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, subsequent encounter (Primary Dx); Recurrent major 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) ([facility]); Other hyperlipidemia ([facility]); EDITH (generalized anxiety disorder) ([facility]); CKD (chronic kidney disease) stage 4, GFR 15-29 ml/min ([facility]); Gastroesophageal reflux disease without esophagitis; Coronary artery disease involving skokomish coronary artery of skokomish heart without angina pectoris ([facility]); Primary hypertension ([facility]); Chronic obstructive pulmonary disease, unspecified COPD type ([facility]) Start: 04-09-2023 End: 04-09-2023 Emergency department patient visit NON STAFF Facility:[facility] Start: 04-09-2023 End: 04-09-2023 ambulatory Aziz Bakhous Other [facility] Other Start: 04-09-2023 Telephone encounter Aziz Bakhous [facility] Start: 03-13-2023 End: 10-01-2023 ambulatory [place] Start: 01-25-2023 End: 01-25-2023 ambulatory Aziz Bakhous Other [facility] Other Start: 01-25-2023 Office outpatient vi sit 25 minutes Aziz Bakhous [facility] Start: 08-15-2022 End: 08-15-2022 Patient encounter procedure Ebony R Mandeep DO Work Phone: Neurology Comment on above: MCI (mild cognitive impairment) (Primary Dx) Start: 07-27-2022 End: 07-28-2022 ambulatory SHAIKH Randolph GRIMES Facility:[facility] Start: 07-10-2022 End: 07-10-2022 ambulatory Aziz Bakhous Other [facility] Other Start: 07-10-2022 Office outpatient vi sit 15 minutes Aziz Bakhous [facility] [place] Start: 07-07-2022 End: 07-08-2022 ambulatory AZIZ BAKHOUS Facility:[facility] Start: 07-03-2022 End: 07-03-2022 ambulatory Corona Monroe Facility:[facility] Start: 06-26-2022 End: 06-26-2022 ambulatory Nadira Choi Other [facility] Other Start: 06-26-2022 Telephone encounter Nadira Choi [facility] [place] Start: 06-05-2022 End: 06-05-2022 ambulatory Corona Casesoila Other [facility] Other Start: 06-05-2022 Office outpatient vi sit 25 minutes Corona Monroe [facility] Start: 05-29-2022 End: 05-29-2022 ambulatory Thomas Genesis Other [facility] Other Start: 05-29-2022 Telephone encounter Thomas Genesis [facility] Start: 05-01-2022 Telephone encounter Elsa garcia Oral And Maxillofacial Surgery Resident Cardiopulmonary & Vascular Rehab Comment on above: 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 - O ther (In response to order placed in [employer]) Start: 04-11-2022 End: 04-11-2022 Patient encounter procedure MD Corona Monroe Work Phone: [facility] Start: 04-10-2022 End: 04-10-2022 Patient encounter procedure Ebony Kaufman DO Work Phone: Neurology Comment on above: 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) (Primary Dx); MCI (mild cognitive impairment) Start: 03-13-2022 End: 03-13-2022 ambulatory Thomas Genesis Other [facility] Other Start: 03-13-2022 Telephone encounter Thomas Genesis [facility] Start: 03-05-2022 End: 03-05-2022 ambulatory Thomas Genesis Other [facility] Other Start: 03-05-2022 Telephone encounter Thomas Genesis [facility] Start: 02-28-2022 End: 02-28-2022 ambulatory Corona Monroe Other [facility] Other Start: 02-28-2022 Telephone encounter Corona Monroe [facility] Member Service Specialist Start: 02-27-2022 End: 02-27-2022 ambulatory Corona Monroe Other [facility] Other Start: 02-27-2022 Office outpatient ne w 45 minutes Corona Monroe [facility] Start: 02-21-2022 Telephone encounter Cristo Bender [facility] [place] Start: 02-21-2022 End: 02-22-2022 ambulatory SHAIKH Randolph GRIMES [facility] Other Start: 02-09-2022 End: 02-09-2022 ambulatory Pulm [facility] 11 Other Phone: Pulmonary Medicine Comment on above: Spirometry Question regarding M RI BRAIN WO IVCON Start: 02-09-2022 End: 02-09-2022 Patient encounter procedure [facility]m [facility] 11 Other Phone: [facility] Start: 02-08-2022 End: 02-08-2022 Orders Only Driss Nur MD Work Phone: [facility] Comment on above: Cognitive impairment , mild, so stated (Primary Dx) Shortness of breath (Primary Dx) Cognitive impairment , mild, so stated [G31.84] Start: 02-08-2022 Telephone encounter Thomas SANCHE[facility] Psychiat[facility] Start: 01-29-2022 End: 01-29-2022 ambulatory Cristo Suazo Other [facility] Other Start: 01-29-2022 Office outpatient vi sit 15 minutes Cristo SANCHEZ [facility] [place] Start: 01-05-2022 End: 01-05-2022 ambulatory Cristo Suazo Other [facility] Other Start: 01-05-2022 Telephone encounter Cristo Bender [facility] [place] Start: 01-01-2022 End: 01-01-2022 ambulatory Cristo Suazo Other [facility] Other Start: 01-01-2022 Telephone encounter Cristo Bender [facility] [place] Start: 12-26-2021 End: 12-26-2021 ambulatory Cristo Suazo Other [facility] Other Start: 12-26-2021 Office outpatient vi sit 25 minutes Cristo Suazo [facility] [place] Start: 12-22-2021 End: 12-22-2021 Patient encounter procedure Jessie Bright MD Work Phone: Neurology Comment on above: 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); Cognitive impairment, mild, so stated; Depression, unspecified depression type Start: 12-18-2021 End: 12-18-2021 ambulatory Thomas Genesis Other [facility] Other Start: 12-18-2021 Telephone encounter Thomas Genesis [facility] Start: 12-06-2021 End: 12-06-2021 ambulatory Thomas Genesis Other [facility] Other Start: 12-06-2021 Telephone encounter Thomas Genesis [facility] Start: 12-04-2021 End: 12-04-2021 ambulatory Cristo Suazo Other [facility] Other Start: 12-04-2021 Telephone encounter Cristo Bender [facility] [place] Start: 09-13-2021 End: 09-13-2021 ambulatory Thomas Genesis Other [facility] Other Start: 09-13-2021 Telephone encounter Thomas Genesis [facility] Start: 08-16-2021 End: 08-16-2021 ambulatory Cristo Suazo Other [facility] Other Start: 08-16-2021 Telephone encounter Cristo Bender [facility] [place] Start: 05-30-2021 Telephone encounter Cristo Bender [facility] [place] Start: 05-23-2021 Office outpatient vi sit 25 minutes Reuben Triana [facility] [place] Start: 05-23-2021 Telephone encounter Susannah Nganabel cade [facility] [place] Start: 04-03-2018 End: 04-04-2018 Patient encounter [facility] Facility:[facility] Start: 03-28-2018 End: 03-29-2018 Patient encounter [facility] Facility:[facility] Procedures Date Procedure Procedure Detail Performing Clinician [...] Screening for malign ant neoplasm of colon [facility] Start: 10-20-2029 Lipid panel Lipid Screening [facility] Start: 06-23-2029 Lipid panel Lipid Screening [facility] Start: 2028 RSV Vaccine (1 - 1-d ose 75+ series) RSV Vaccine (1 - 1-dose 75+ series) [facility] Start: 03-10-2026 Adult BMI Screening Adult BMI Screen ing [facility] Start: 03-10-2026 Tobacco Screening Tobacco Screening [facility] Start: 01-27-2026 Adult BMI Screening Adult BMI Screen ing [facility] Start: 01-27-2026 Tobacco Screening Tobacco Screening [facility] Start: 01-12-2026 Creatinine measurement Serum Creatin ine [facility] Start: 05-31-2025 End: 05-31-2025 Patient encounter procedure 05/31/2025 1:20 PM EDT Office Visit [facility] [address] [place] [address] Susan Watson NP [address] [place] [phone] [facility] Start: 05-02-2025 End: 05-01-2026 NM Heart Perfusion W stress and W radionuclide IV NM CARDIAC PERF STRESS/PHARM Radiology Routine Coronary artery disease involving skokomish coronary artery of skokomish heart without angina pectoris Hx of CABG Other emphysema (HCC) ROMAN (dyspnea on exertion) Expected: 05/02/2025 (Approximate), Expires: 05/01/2026 [facility] Work Phone: Comment on above: Expected: 05/02/2025 (Approximate), Expires: 05/01/2026 Start: 04-16-2025 End: 07-16-2025 Basic metabolic 2000 panel - Serum or Plasma BASIC METABOLIC PANEL Lab Routine Chronic heart failure with preserved ejection fraction (HCC) Expected: 04/16/2025 (Approximate), Expires: 07/16/2025 [facility] Work Phone: Comment on above: Expected: 04/16/2025 (Approximate), Expires: 07/16/2025 Start: 04-16-2025 End: 04-16-2025 Patient encounter procedure 04/16/2025 11:00 AM EDT Office Visit Neurology [address] [place] [address] Ebony Trent DO [address] [place] [address] 6 month follow up Neurology Comment on above: 6 month follow up Start: 04-15-2025 End: 05-01-2026 LUNG DIFFUSION CAPACITY (DLCO) LUNG DIFFUSION CAPACITY (DLCO) PFT Routine Other emphysema (HCC) Expected: 04/15/2025 (Approximate), Expires: 05/01/2026 [facility] Comment on above: Expected: 04/15/2025 (Approximate), Expires: 05/01/2026 Start: 04-15-2025 End: 05-01-2026 LUNG VOLUMES LUNG VOLUMES PFT Routine Other emphysema (HCC) Expected: 04/15/2025, Expires: 05/01/2026 [facility] Comment on above: Expected: 04/15/2025 , Expires: 05/01/2026 Start: 04-15-2025 End: 05-01-2026 SPIROMETRY BASELINE ONLY SPIROMETRY BASELINE ONLY PFT Routine Other emphysema (HCC) Expected: 04/15/2025 (Approximate), Expires: 05/01/2026 [facility] Comment on above: Expected: 04/15/2025 (Approximate), Expires: 05/01/2026 Start: 04-15-2025 End: 05-01-2026 XR Chest PA and Lateral XR CHEST 2V FRONTAL/LAT Radiology Routine Other emphysema (HCC) Expected: 04/15/2025 (Approximate), Expires: 05/01/2026 [facility] Comment on above: Expected: 04/15/2025 (Approximate), Expires: 05/01/2026 Start: 04-12-2025 Influenza vaccination N [facility] Start: 03-10-2025 End: 03-10-2026 MR Cervical spine WO contrast MR cervical spine without contrast Imaging Routine Cervical spondylosis Expected: 03/10/2025, Expires: 03/10/2026 [facility] Work Phone: Comment on above: Expected: 03/10/2025 , Expires: 03/10/2026 Start: 03-10-2025 End: 03-10-2025 Patient encounter procedure 03/10/2025 9:45 AM EDT Office Visit [facility] [address] [place] [phone] Darrick Sauer PA-C [address] [place], [place] [id number] [facility] Start: 03-01-2025 End: 03-01-2025 Patient encounter procedure 03/01/2025 1:40 PM EDT Office Visit [facility] [address] [place] [address] Susan Watson NP [address] [place] [address] [facility] Start: 02-19-2025 End: 02-19-2025 Admission to same day surgery center 02/19/2025 2:58 PM EDT - 02/19/2025 3:07 PM EDT Surgery [facility] [address] [place] [phone] Abiodun Cherry MD [address] [place], [place] [id number] INJECTION FACET JOINT Bilateral C 5/6,6/7 [62542 (CPT )] [facility] Comment on above: INJECTION FACET JOIN T Bilateral C 5/6,6/7 [52472 (CPT )] Start: 02-19-2025 End: 02-19-2025 Njx dx/ther agt pvrt facet jt crv/thrc 1 level INJECTION FACET JOINT Cervical spondylosis 02/19/2025 2:58 PM EDT [facility] Start: 02-19-2025 Subsequent hospital visit by physician 02/19/2025 2:58 PM EDT Hospital Encounter [facility] [address] [place] [phone] Abiodun Cherry MD [address] [place] [address] [facility] Start: 01-19-2025 End: 01-19-2025 Patient encounter procedure 01/19/2025 1:00 PM EDT Office Visit [facility] [address] [place] [phone] Susan Watson, PARI [address] [place] [phone] [facility] Start: 01-07-2025 End: 01-07-2026 XR Cervical spine 2 or 3 Views XR cervical spine 2 or 3 views Imaging Routine Neck pain Expected: 01/07/2025 (Approximate), Expires: 01/07/2026 [facility] Work Phone: Comment on above: Expected: 01/07/2025 (Approximate), Expires: 01/07/2026 Start: 11-19-2024 End: 11-19-2024 Patient encounter procedure [facility] Comment on above: Chronic obstructive pulmonary disease, unspecified COPD type ([facility]HCC) (Primary Dx); Coronary artery disease involving skokomish coronary artery of skokomish heart without angina pectoris ([facility]/HCC); Atherosclerosis of arteries of extremities (CMS/HCC); Primary hypertension (CMS/HCC); Gastroesophageal reflux disease without esophagitis; Chronic kidney disease, stage 4 (severe) (CMS/HCC); EDITH (generalized anxiety disorder) ([facility]) Start: 09-16-2024 End: 09-16-2024 Patient encounter procedure 09/16/2024 1:00 PM EST Office Visit [facility] [address] [place] [address] Jayy Coronado NP [address] [place] [address] [facility] Start: 08-12-2024 Advance Directive Discussion Advance Directive Discussion [facility] Start: 08-12-2024 Medicare Advantage Annual Wellness Visit Medicare Advantage Annual Wellness Visit [facility] Start: 06-30-2024 End: 06-30-2024 ambulatory 06/30/2024 11:30 AM EST Evaluation [facility] [address] [place] [phone] Babak Aquino, PT [address] [place] [address] [facility] Start: 06-17-2024 End: 06-17-2025 Lipid 1996 panel - Serum or Plasma Lipid panel Lab Routine Primary hypertension ([facility]) Expected: 06/17/2024 (Approximate), Expires: 06/17/2025 [facility] Comment on above: Expected: 06/17/2024 (Approximate), Expires: 06/17/2025 Start: 06-10-2024 End: 06-10-2024 Patient encounter procedure [facility] Comment on above: Arrived Start: 05-19-2024 Diabetes Screening Diabetes Michael gonzalez [facility] Start: 05-12-2024 End: 05-12-2024 Patient encounter procedure 05/12/2024 7:45 AM EDT Appointment Radiology [address] [place] [address] ct wo contrast Radiology Comment on above: ct wo contrast Start: 04-12-2024 Covid-19 Vaccine ( season) Covid-19 Vaccine ( season) [facility] Start: 04-12-2024 Influenza vaccination Influenza Vacc ine (#1) [facility] Start: 12-24-2023 End: 12-24-2023 Patient encounter procedure 12/24/2023 1:15 PM EDT Office Visit [facility] [address] [place] [phone] Shaikh Grimes MD [address] [place] [address] [facility] Start: 09-19-2023 End: 09-19-2024 CBC W Auto Differential panel - Blood CBC and differential Lab Routine Recurrent major 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) (CMS/HCC) CKD (chronic kidney disease) stage 4, GFR 15-29 ml/min (CMS/HCC) Coronary artery disease involving skokomish coronary artery of skokomish heart without angina pectoris (CMS/HCC) Primary hypertension (CMS/HCC) Expected: 09/19/2023 (Approximate), Expires: 09/19/2024 [facility] Work Phone: Comment on above: Expected: 09/19/2023 (Approximate), Expires: 09/19/2024 Start: 09-19-2023 End: 09-19-2024 Comprehensive metabolic 2000 panel - Serum or Plasma Comprehensive metabolic panel Lab Routine Recurrent major 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) (CMS/HCC) CKD (chronic kidney disease) stage 4, GFR 15-29 ml/min (CMS/HCC) Coronary artery disease involving skokomish coronary artery of skokomish heart without angina pectoris (CMS/HCC) Primary hypertension (CMS/HCC) Expected: 09/19/2023 (Approximate), Expires: 09/19/2024 [facility] Comment on above: Expected: 09/19/2023 (Approximate), Expires: 09/19/2024 Start: 09-19-2023 End: 09-19-2024 Creatinine [Mass/volume] in Urine Creatinine, urine, random Lab Routine CKD (chronic kidney disease) stage 4, GFR 15-29 ml/min ([facility]) Expected: 09/19/2023 (Approximate), Expires: 09/19/2024 [facility] Comment on above: Expected: 09/19/2023 (Approximate), Expires: 09/19/2024 Start: 09-19-2023 End: 09-19-2024 Lipid 1996 panel - Serum or Plasma Lipid panel Lab Routine Other hyperlipidemia ([facility]) Expected: 09/19/2023 (Approximate), Expires: 09/19/2024 [facility] Comment on above: Expected: 09/19/2023 (Approximate), Expires: 09/19/2024 Start: 09-19-2023 End: 09-19-2024 Protein, urine, random Protein, urine, random Lab Routine CKD (chronic kidney disease) stage 4, GFR 15-29 ml/min ([facility]) Expected: 09/19/2023 (Approximate), Expires: 09/19/2024 [facility] Comment on above: Expected: 09/19/2023 (Approximate), Expires: 09/19/2024 Start: 08-12-2023 Advance Directive Discussion Advance Directive Discussion [facility] Start: 04-12-2023 Influenza vaccination Influenza Vacc ine (#1) [facility] Start: 12-22-2022 Adult depression screening assessment DEPRESSION SCREENING [facility] Start: 08-12-2022 ADVANCE DIRECTIVE DISCUSSION ADVANCE DIRECTIVE DISCUSSION [facility] Start: 04-12-2022 Influenza vaccination INFLUENZA (#1) [facility] Start: 02-09-2022 End: 03-10-2023 SPIROMETRY WITH DILATOR IF OBSTRUCTED [facility] Work Phone: Comment on above: Expected: 02/09/2022 , Expires: 03/10/2023 Start: 12-22-2021 End: 02-21-2022 SYPHILIS TOTAL W/REFLEX SYPHILIS TOTAL W/REFLEX Lab Routine Cognitive impairment, mild, so stated 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) Depression, unspecified depression type Expected: 12/22/2021, Expires: 02/21/2022 [facility] Work Phone: Comment on above: Expected: 12/22/2021 , Expires: 02/21/2022 Start: 12-22-2021 End: 02-21-2022 Thyrotropin [Units/volume] in Serum or Plasma TSH BLD Lab Routine Cognitive impairment, mild, so stated 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) Depression, unspecified depression type Expected: 12/22/2021, Expires: 02/21/2022 [facility] Work Phone: Comment on above: Expected: 12/22/2021 , Expires: 02/21/2022 Start: 12-22-2021 End: 02-21-2022 VITAMIN B12 BLOOD VITAMIN B12 BLOOD Lab Routine Cognitive impairment, mild, so stated 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) Depression, unspecified depression type Expected: 12/22/2021, Expires: 02/21/2022 [facility] Work Phone: Comment on above: Expected: 12/22/2021 , Expires: 02/21/2022 Start: 12-05-2021 COVID-19 VACCINE (4 - Booster for Pfizer series) COVID-19 VACCINE (4 - Booster for Pfizer series) [facility] Start: 10-01-2021 COVID-19 VACCINE (4 - Booster for Pfizer series) COVID-19 VACCINE (4 - Booster for Pfizer series) [facility] Start: 08-12-2021 ADVANCE DIRECTIVE DISCUSSION ADVANCE DIRECTIVE DISCUSSION [facility] Start: 2018 Fall Risk Screening Fall Risk Screen [facility] Start: 2018 PNEUMOCOCCAL: 65+ (1 - PCV) PNEUMOCOCCAL: 65+ (1 - PCV) [facility] Start: 2018 PNEUMOVAX AGE 65 AND OVER WITH 5YR LOOKBACK (#1) PNEUMOVAX AGE 65 AND OVER WITH 5YR LOOKBACK (#1) [facility] Start: 2013 RSV Vaccine (1 - Ris k 60-74 years 1-dose series) RSV Vaccine (1 - Risk 60-74 years 1-dose series) [facility] Start: 2008 PROSTATE CANCER SCREENING DISCUSSION PROSTATE CANCER SCREENING DISCUSSION [facility] Start: 2003 Administration of varicella zoster vaccine Zoster (Shingles) Vaccine (1 of 2) [facility] Start: 2003 SHINGRIX VACCINE (1 of 2) SHINGRIX VACCINE (1 of 2) [facility] Start: 1998 COLOGUARD (FIT-DNA) COLOGUARD (FIT-D NA) [facility] Start: 1998 Colonoscopy COLONOSCOPY [facility] Start: 1998 COLORECTAL CANCER SCREENING COLORECTAL CANCER SCREENING [facility] Start: [address] COLONOGRAPHY [facility] Start: 1998 DIABETES SCREEN DIABETES SCREEN [facility] Start: 1998 FECAL OCCULT BLOOD FECAL OCCULT BLOO D [facility] Start: 1998 Screening for malign ant neoplasm of colon [facility] Start: 1998 SIGMOIDOSCOPY SIGMOIDOSCOPY [facility] Start: 1988 Lipid panel Lipid Screening [facility] Start: 1988 LIPID SCREEN LIPID SCREEN [facility] Start: 1972 DTaP,Tdap and Td Vaccines (1 - Tdap) DTaP,Tdap and Td Vaccines (1 - Tdap) [facility] Start: 1972 Urine microalbumin profile [facility] Start: 1971 Adult BMI Follow Up Plan Adult BMI F ollow Up Plan [facility] Start: 1971 Annual PCP Team Business Analyst Project Manager cuong Disease Visit Annual PCP Team Chronic Disease Visit [facility] Start: 1971 Anxiety Screening Anxiety Screening [facility] Start: 1971 Hepatitis B surface antibody level LDL Cholesterol [facility] Start: 1971 HEPATITIS C SCREENING HEPATITIS C [facility] Start: 1971 Hepatitis C screening Hepatitis C [facility] Start: 1965 [facility] Start: 1953 Medicare Annual Well ness (AWV) Medicare Annual Wellness (AWV) [facility] Start: 1953 Screening for malign ant neoplasm of colon [facility] Start: 1953 Tobacco Counseling Tobacco Counselin g [facility] CBC W Auto Different ial panel - Blood CBC and differential Lab Routine Primary hypertension (CMS/HCC) Ordered: 06/17/2024 [facility] Work Phone: Comment on above: Ordered: 06/17/2024 Comprehensive metabo lic 2000 panel - Serum or Plasma Comprehensive metabolic panel Lab Routine Primary hypertension (CMS/HCC) Ordered: 06/17/2024 [facility] Comment on above: Ordered: 06/17/2024 End: 06-03-2025 CT Head WO contrast CT BRAIN WO IVCON Radiology Routine Memory loss 1 Occurrences starting 05/04/2024 until 06/03/2025 [facility] Work Phone: Comment on above: 1 Occurrences starti ng 05/04/2024 until 06/03/2025 End: 01-21-2023 Mri brain brain stem w/o contrast material MRI BRAIN WO IVCON Radiology Routine Cognitive impairment, mild, so stated 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 Immunizations Immunization Date Immunization Notes Care Provider Fa [facility] 08-06-2021 COVID-19 Vaccine Pfi zer - Documentation Purposes Only Corona Monroe Other [facility] Other 05-23-2021 influenza, high dose seasonal, preservative-free Susannah Nevarez Other [facility] Other 05-23-2021 Influenza, High-dose Seasonal, Quadrivalent, Preservative Free Shaikh Cornelio LEMON Work Phone: [facility] [place] 05-23-2021 influenza virus vaccine, unspecified formulation Shaikh Cornelio LEMON Work Phone: [facility] 11-08-2020 COVID-19 Pfizer Susannah Tate montano Other [facility] Other 10-19-2020 COVID-19 Vaccine Pfi zer - Documentation Purposes Only Susannah Nevarez Other [facility] Other 08-03-2020 influenza, high dose seasonal, preservative-free Susannah Nevarez Other [facility] Other 08-03-2020 pneumococcal polysaccharide vaccine, 23 valent Susannah Nevarez Other [facility] Other 08-03-2020 influenza virus vaccine, unspecified formulation [facility] 08-03-2020 Influenza, High-dose Seasonal, Quadrivalent, Preservative Free Shaikh Cornelio LEMON Work Phone: [facility] 08-27-2019 pneumococcal conjuga te vaccine, 13 valent Susannah Nevarez Other [facility] Other Payers Date Payer Category Payer Medicare (Managed Care) 1.2. [id number] 2024 Medicare [place] [facility] [place] [facility] [id number] 2024 Unknown [id number] 2023 Medicaid [employer] MEDICARE A DVANTAGE [id number] [facility] BCMid [facility] er [id number]. [id number] 2022 Self-pay [id number] 2020 Unknown ANTHEM BLUE ACCE SS PPO [id number] 2020-Present [phone] [address] [place] [address] [facility] [id number] 2018 Unknown 2015 Medicare MEDICARE MEDICAR E A AND B [id number] 2015-Present [phone] [address] [address] [place] [address] Medicare [id number] 2015 Medicare [id number] [id number]. [id number] 1953 Unknown [id number] 2.16.840.1.047719.3.579.2. 593 1953 Unknown [id number] 2.16.840.1.917123.3.579.2. 593 1953 Unknown [id number] 2.16.840.1.600410.3.579.2. 593 1953 Unknown [id number] 2.16.840.1.735116.3.579.2. 1259 1953 Unknown [id number] 2.16.840.1.186310.3.579.2. 1259 1953 Unknown [id number] 2.16.840.1.540259.3.579.2. 1259 1953 Unknown [id number] 2.16.840.1.304078.3.579.2. 1259 1953 Unknown [id number] 2.16.840.1.603254.3.579.2. 1259 1953 Unknown [id number] 2.16.840.1.674726.3.579.2. 1259 1953 Unknown [id number] 2.16.840.1.122157.3.579.2. 1259 1953 Unknown [id number] 2.16.840.1.391696.3.579.2. 1286 1953 Unknown [id number] 2.16.840.1.167764.3.579.2. 1286 1953 Unknown [id number] 2.16.840.1.253408.3.579.2. 1286 1953 Unknown [id number] 2.16.840.1.240493.3.579.2. 1286 1953 Unknown [id number] 2.16.840.1.484410.3.579.2. 1285 1953 Unknown [id number] 2.16.840.1.978134.3.579.2. 128 1953 Unknown [id number] 2.16.840.1.402020.3.579.2. 1285 1953 Unknown [id number] 2.16.840.1.237014.3.579.2. 1286 1953 Unknown [id number] 2.16.840.1.687636.3.579.2. 1285 1953 Unknown [id number] 2.16.840.1.023092.3.579.2. 1285 1953 Unknown [id number] 2.16.840.1.631461.3.579.2. 1286 Blue Cross Blue Shield [id number] 2.16.840.1.174846.08-12-1899 Medicare [id number] 2.16.840.1.898139.08-12-1899 Private Health Insurance [id number] Unknown [facility] [id number] Unknown [id number] 2.16.840.1.849406.3.579.2. 531 Unknown [id number] 2.16.840.1.693168.3.579.2. 531 Social History Date Type Detail Facility Start: 12-22-2021 End: 08-15-2022 Tobacco smoking status [facility] Never smoked tobacco [facility] Start: 12-22-2021 End: 01-27-2025 Tobacco use and exposure User of smokeless tobacco [facility] End: 07-14-2022 History of tobacco use Chews Tobacco [facility] Start: 1955 Sex Assigned At Not on file [facility] Start: 12-12-2021 End: 04-10-2022 Exposure to SARS-CoV-2 (event) Not sure [facility] Start: 05-16-2023 End: 07-22-2023 Sex Assigned At [facility] Start: 09-30-2020 End: 03-11-2024 Tobacco smoking status NHIS Ex-smoker (finding) [facility] Start: 1955 Sex Assigned At Male F [facility] Start: 08-15-2022 Tobacco use and exposure Former smokeless tobacco user [facility] History of tobacco use Current smoker [facility] History of tobacco use Cigarette Smoker [facility] Start: 07-12-2023 End: 03-11-2024 Tobacco use and exposure Smokeless tobacco non-user [facility] Start: 09-19-2023 End: 03-01-2025 Alcohol intake Lifetime non-drinker (finding) [facility] Start: 05-16-2023 End: 07-22-2023 History of Social function [facility] Within the last year , have you been afraid of your partner or ex-partner? No [facility] Are you now , , , , never or living with a partner? [facility] How often to you hav e [...] Start: 10-02-2019 End: 10-27-2024 Sex Male (finding) [facility] How often do you nee d to [...] Start: 04-01-2025 Alcoholic beverage intake Ex-drinker (finding) [facility] NEGATED: Highlighted rowStart: BERNIEF History of tobacco use Passive smoker [facility] Medical Equipment Procedure Code Equipment Code Equipment Origin al Text Equipment Identifier Dates Repair, hernia, umbilical Abdominal hernia surgical mesh, composite-polymer ([id number] [facility] Start: 09-30-2020 Goals Date Patient Goal Desired Activity /State Personal health goal Clinical Notes 05-23-2021 to 04-21-2025 Telephone Encounter - Mariana Wheeler LPN - 04/05/2025 4:02 PM EDTTelephone Encounter - Mariana Wheeler LPN - 04/05/2025 4:02 PM EDTAddendum Note - Bill Gant MD - 04/02/2025 8:18 AM EDT Note Date & Type Note Facility 04-21-2025 Note DIVISION OF VASCULAR SURGERY HPI Kel Castillo is a 69 y.o. male who presents today for No chief complaint on file. Patient referred to us for PAD. HE has had a HUBER study done at [facility] on 02/23/25. Patient with a history of history of coronary artery [...] Cancer (CMS/HCC) Coronary artery disease Hyperlipidemia Hypertension [facility] 04-05-2025 Telephone encounter Note Chest x-ray results received from [facility]. Scanned in for review. Mariana Wheeler LPN [facility] 04-05-2025 Miscellaneous Notes Chest x-ray results received from [facility]. Scanned in for review. Mariana Wheeler LPN documented in this encounter [facility] 04-02-2025 Telephone encounter Note I spoke to Nini and informed them of 's response and recommendations. She voiced understanding and will call back with fax number for lab of choice. Brianne Patterson LPN [facility] 04-02-2025 Miscellaneous Notes I spoke to Nini and informed them of 's response and recommendations. She voiced understanding and will call back with fax number for lab of choice. Brianne Patterson LPN Addended by: BILL GANT on: 04/02/2025 08:18 AM Modules accepted: Orders If the Jardiance is too expensive just have them cancel that particular prescription. I will order a BMP for about 2 weeks that can be done in [place] I spoke to Nini and informed them of 's response to lab results and recommendations. She voiced understanding and wants to go ahead and start both medications. [facility] in [place] on file is pharmacy of choice. Brianne Patterson LPN ----- Message from Bill Gant MD [...] Bill Gant MD documented in this encounter [facility] 04-02-2025 Note Addended by: BILL GANT on: 04/02/2025 08:18 AM Modules accepted: Orders [facility] 04-02-2025 Telephone encounter Note If the Jardiance is too expensive just have them cancel that particular prescription. I will order a BMP for about 2 weeks that can be done in [place] [facility] 04-02-2025 Telephone encounter Note I spoke to Nini and informed them of 's response to lab results and recommendations. She voiced understanding and wants to go ahead and start both medications. [facility] in [place] on file is pharmacy of choice. Brianne Patterson LPN [facility] 04-02-2025 Telephone encounter Note ----- Message [...] 5:02 PM EDT To: Bill Gant MD [facility] 04-01-2025 Instructions Bill Gant MD - [...] get back with you. Please ask your religious studies professor to send results of the peripheral artery imaging that is planned to look at your legs in the next few weeks. documented in this encounter [facility] 04-01-2025 History of Present illness Narrative Chief Complaint No chief complaint on file. History of Present Illness: Samir Castillo is a 69-year-old male with a history of CAD, status post-CABG, HTN, HLD, COPD, PAD, stage 4 CKD, and mild cognitive impairment, presenting for a new patient visit. He lives in [place] and gets most of his care in [place] at [facility] but just wants a second opinion [...] supplemental oxygen. He has not seen a dye jig operator recently and has not had any [...] family for transportation. He worked at a [employer] before retiring. He quit smoking 40 years [...] 1/2 TABLETS BY MOUTH EVERY DAY omega 3-buk-sjt-fish oil (FISH OIL) 100-160-1,000 mg cap Take [...] and Plan: 1. Coronary artery disease involving skokomish coronary artery of skokomish heart without angina pectoris (I25.10) 2. Hx [...] CRI (chronic renal insufficiency), stage 4 (severe) ([facility]) (N18.4) Stage 4 renal insufficiency; most recent [...] planned peripheral angiogram by Dr. Tolliver at [facility]. - Discussed potential interventions (balloon angioplasty, stenting, surgery) depending on angiogram findings. - Advised patient and family to ensure results are sent to our office for review. 9. Other emphysema ([facility]) (J43.8) COPD with mild baseline symptoms; no [...] avoid him having to come back to [place] or [place] for all this testing. If they are done locally in the [facility] or in [place] I would then asked that results be sent to our office when available. Thank you Electronically signed by Bill Gant MD on March 31, 2025, 7:13 AM [1] Social History Tobacco Use Smoking status: Never Smokeless tobacco: Former Types: Chew Quit date: 07/14/2022 documented in this encounter [facility] 04-01-2025 Note HNO ID: [id number] Author: BILL GANT MD Service: ? Author Type: Physician Type: Progress Notes Filed: 04/01/2025 15:11 Note Text: Chief Complaint No chief complaint on file. History of Present Illness: Samir Castillo is a 69-year-old male with a history of CAD, status post-CABG, HTN, HLD, COPD, PAD, stage 4 CKD, and mild cognitive impairment, presenting for a new patient visit. He lives in [place] and gets most of his care in [place] at [facility] but just wants a second opinion [...] supplemental oxygen. He has not seen a dye jig operator recently and has not had any [...] family for transportation. He worked at a [employer] before retiring. He quit smoking 40 years [...] 1/2 TABLETS BY MOUTH EVERY DAY omega 8-gmx-cwf-fish oil (FISH OIL) 100-160-1,000 mg cap Take [...] H (more content not included)... [facility] 03-10-2025 History of Present illness Narrative [facility] [address] [place] [address] Patient: Kel Castillo Jr. Sex: male : 1955 Age: 69 y.o. PCP: SUSAN WATSON APRN-LABORER DRIVER 03/10/2025 Kel Castillo JrBren is here for [...] disease Chronic kidney disease, stage 4 (severe) ([facility] 09/19/2023 Chronic obstructive pulmonary disease, unspecified ([facility] 03/11/2024 CKD (chronic kidney disease) stage 3 Closed nondisplaced fracture of greater tuberosity of left humerus with routine healing 09/19/2023 COPD (chronic obstructive pulmonary disease) ([facility]) Coronary artery disease Coronary artery disease involving skokomish coronary artery of skokomish heart without angina pectoris 09/19/2023 Depression Dyspnea and respiratory abnormalities 09/18/2013 66 pk/yr history of smoking. Quit in 1994, when diagnosed with NSCLC and treated with RULobectomy and XRT. Also has extensive coronary disease, with CABG. Sees cardiology at [place]. Anxiety, HTN, CKD IIIb. PCP started albuterol [...] echocardiogram Hypertension Intermittent claudication 08/25/2012 Lung cancer ([facility]) MCI (mild cognitive impairment) 04/12/2022 Migraine 07/18/2012 [...] 02/19/2025 Performed by Abiodun Cherry MD at [facility] No Known Allergies History reviewed. [...] Resource Strain: Low Risk (02/28/2025) Received from [facility] Overall Financial Resource Strain (CARDIA) Difficulty of Paying Living Expenses: Not very hard Food Insecurity: No Food Insecurity (03/10/2025) Hunger Screening Food Insecurity - Worry: Never True Food Insecurity - Inability: Never True Transportation Needs: No Transportation Needs (02/28/2025) Received from [facility] PRAPARE - Transportation Lack of Transportation (Medical): No Lack of Transportation (Non-Medical): No Physical Activity: Inactive (02/28/2025) Received from [facility] Exercise Vital Sign Days of Exercise per Week: 0 days Minutes of Exercise per Session: 0 min Stress: Stress Concern Present (02/28/2025) Received from [facility] [place] of Occupational Health - Occupational Stress Questionnaire Feeling of Stress : To some extent Social Connections: Socially Isolated (02/28/2025) Received from [facility] Social Connection and Isolation Panel [NHANES] Frequency of Communication with Friends and Family: More than three times a week Frequency of Social Gatherings with Friends and Family: Once a week Attends Christianity Services: Never Active Member of Clubs or Organizations: No Attends Club or Organization Meetings: Never Marital Status: Interpersonal Safety: Not At Risk (02/28/2025) Received from [facility] Humiliation, Afraid, Rape, and Kick questionnaire Fear of Current or Ex-Partner: No Emotionally Abused: No Physically Abused: No Sexually Abused: No Housing Instability: Low Risk (02/28/2025) Received from [facility] Housing Stability Vital Sign Unable to Pay [...] PA-C 03/10/25 1049 documented in this encounter [facility] 03-01-2025 History of Present illness Narrative Associated [...] (65 Fe) MG tablet 1 tablet, Daily Druhhrkyssc-Annxzxdzx-Ktfzqj (Trelegy Ellipta) 100-62.5-25 MCG/ACT aerosol powder 1 [...] HISTORY Past Medical History: Diagnosis Date Alcoholism ([facility]) ( quit drinking 25 years ago) Anxiety and depression Bronchitis Chicken pox CKD (chronic kidney disease), symptom management only, stage 4 (severe) ([facility]) Claudication of calf muscles COPD (chronic obstructive pulmonary disease) ([facility]) Coronary artery disease Depression with anxiety GERD [...] Addressed This Visit Coronary artery disease involving skokomish coronary artery of skokomish heart without angina pectoris Established with [facility] [...] (HCC) Is prescribed trelegy inhaler Relevant Medications Dwdbgtuxlcf-Bwemtbdvk-Xdempd (Trelegy Ellipta) 100-62.5-25 MCG/ACT aerosol powder Primary [...] prn Associated Problem(s): Coronary artery disease involving skokomish coronary artery of skokomish heart without angina pectoris Established with [facility] [...] raulito, b kelsy, documented in this encounter [facility] 03-01-2025 Instructions Susan Watson NP - 03/01/2025 1:40 PM EDT Please call dr amezcua's office to get an appt documented in this encounter [facility] 01-27-2025 History of Present illness Narrative [facility] [address] [place] [address] Patient: Kel Castillo Jr. Sex: male : 1955 Age: 69 y.o. 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 is here for [...] kidney disease COPD (chronic obstructive pulmonary disease) ([facility]) Coronary artery disease Hypertension Neck pain History [...] Resource Strain: Medium Risk (07/22/2023) Received from [facility] Overall Financial Resource Strain (CARDIA) Difficulty of Paying Living Expenses: Somewhat hard Food Insecurity: No Food Insecurity (01/27/2025) Hunger Screening Food Insecurity - Worry: Never True Food Insecurity - Inability: Never True Transportation Needs: No Transportation Needs (07/22/2023) Received from [facility] PRAPARE - Transportation Lack of Transportation (Medical): No Lack of Transportation (Non-Medical): No Physical Activity: Inactive (07/22/2023) Received from [facility] Exercise Vital Sign Days of Exercise per Week: 0 days Minutes of Exercise per Session: 0 min Stress: Stress Concern Present (07/22/2023) Received from [facility] [place] [facility] - Occupational Stress Questionnaire Feeling of Stress : Very much Social Connections: Moderately Isolated (07/22/2023) Received from [facility] Social Connection and Isolation Panel [NHANES] Frequency of Communication with Friends and Family: More than three times a week Frequency of Social Gatherings with Friends and Family: Twice a week Attends Christianity Services: Never Active Member of Clubs or Organizations: No Attends Club or Organization Meetings: Never Marital Status: Interpersonal Safety: Unknown (10/03/2023) Received from [facility] [place] [facility] Fear of Current or Ex-Partner: Not on file Emotionally Abused: Not on file Physically Abused: Not on file Sexually Abused: Not on file Physically or Sexually Abused: Not on file Housing Instability: Low Risk (07/22/2023) Received from [facility] Housing Stability Vital Sign Unable to Pay [...] PA-C 01/27/25 1115 documented in this encounter [facility] 01-27-2025 Instructions Susan Anderson CNA - 01/27/2025 [...] nearest emergency room. documented in this encounter [facility] 01-19-2025 History of Present illness Narrative Neck [...] (ANTARA) 43 mg, Oral, Daily with breakfast Cmstxzgakkq-Lkuqytajq-Ieliwc (Trelegy Ellipta) 100-62.5-25 MCG/ACT aerosol powder 1 [...] HISTORY Past Medical History: Diagnosis Date Alcoholism ([facility]) ( quit drinking 25 years ago) Anxiety and depression ([facility]) Bronchitis Chicken pox CKD (chronic kidney disease), symptom management only, stage 4 (severe) ([facility]) Claudication of calf muscles ([facility] COPD (chronic obstructive pulmonary disease) ([facility]) Coronary artery disease ([facility]) Depression with anxiety GERD (gastroesophageal reflux disease) Heart disease High blood pressure ([facility]) High cholesterol ([facility]) History of medical problems Hernia History of migraine headaches History of psychiatric care Kidney disease Lung cancer ([facility]) JITENDRA (obstructive sleep apnea) Peripheral vascular disease ([facility]) Umbilical hernia URTI (infection of [...] H/O: lung cancer EDITH (generalized anxiety disorder) ([facility]) Current meds: wellbutrin, buspar, sertraline [...] testing Associated Problem(s): EDITH (generalized anxiety disorder) (CMS/HCC) Current meds: [...] Trial prednisone taper documented in this encounter [facility] 01-19-2025 Instructions Susan Watson NP - 01/19/2025 1:00 PM EDT Pain mgmt documented in this encounter [facility] 11-19-2024 History of Present illness Narrative Associated [...] (ANTARA) 43 mg, Oral, Daily with breakfast Wfgcvdplbwx-Qqolxqaeg-Icoglw (Trelegy Ellipta) 100-62.5-25 MCG/ACT aerosol powder 1 [...] HISTORY Past Medical History: Diagnosis Date Alcoholism ([facility]) ( quit drinking 25 years ago) Anxiety and depression ([facility]) Bronchitis Chicken pox CKD (chronic [...] Therapy Chronic kidney disease, stage 4 (severe) ([facility]) Continue with Nephrology Check labs yearly and prn EDITH (generalized anxiety disorder) ([facility]) Current meds: wellbutrin, buspar, sertraline Pt's daughter is a tita [employer]ITTER OPERATOR, I have given daughter present today options for addressing anxiety: Buspar TID, olanzapine at 2.5mg or quetiapine She will talk with sister and go from there Primary hypertension ([facility]) Please check blood pressure daily [...] tablet Associated Problem(s): EDITH (generalized anxiety disorder) ([facility]) Current meds: wellbutrin, buspar, sertraline Pt's daughter is a tita [employer] OPERATOR, I have given daughter present today options [...] Current meds: famotidine Associated Problem(s): Primary hypertension ([facility]) Please check blood pressure daily and record DASH diet Limit caffeine Take medication as directed Contact office if chest pain, pressure, dizziness, shortness of breath, swelling legs Recommend slow position changes Current meds; raulito, b kelsy, calcium channel kelsy, imdur Associated Problem(s): Atherosclerosis of arteries of extremities ([facility]) Asa, plavix, statin Associated Problem(s): Coronary artery disease involving skokomish coronary artery of skokomish heart without angina pectoris ([facility]) Established with [facility] Cardiology Current meds: asa, amlodipine, statin, plavix, imdur, raulito, b kelsy, and prn nitro Associated Problem(s): Chronic obstructive pulmonary disease, unspecified Is prescribed trelegy inhaler documented in this encounter [facility] 11-19-2024 Instructions Susan Watson NP - 11/19/2024 1:00 PM EDT Anxiety; we could try increase buspirone to 15mg three times daily Or consider adding olanzapine at 2.5mg at bed time ??low dose of quetiapine like 25mg at bedtime I will order PT and speech therapy at [facility] Neck: try stretching exercises, baclofen 10mg pill at bedtime as needed for muscle spasms documented in this encounter [facility] 10-27-2024 Evaluation note Diagnosis Onset Date Resolution [...] January 19, 2025 4:22pm Hyperkalemia acute January 19 025 4:22pm Hyperlipemia acute January 19 2 025 4:22pm Hypertensive chronic kidney disease with stage 1 through stage 4 chronic ki acute January 19, 2025 4:22pm [facility] Work Phone: [phone]) 320-442303-04-20[facility] Chief Complaint: [...] occluded right coronary artery. 2. Severe 3-vessel skokomish coronary artery disease. 3. Patent left internal [...] Laboratory Report FINAL IMPRESSIONS: 1. Severe 3-vessel skokomish coronary artery disease. 2. A 2/3 bypass grafts patent; the radial artery graft to the posterior descending artery is occluded. 3. Severe, heavily calcific lesion of the right common femoral artery; this is a new angiographic finding. Assessment: Coronary a (more content not included)...[facility] 10-12-2024 Instructions* Patient Instructions* Ebony Trent, - 10/12/2024 11:31 AM EST Please do physical therapy and speech therapy. Please follow-up with your sleep apnea doctor about a better mask as this can help memory. Follow-up in six months. He and his family may benefit from the following community resources: [facility] Agencies on Aging -- , https://aging.[place].gov/about-us/who-we-are/hyde-jxkjhhza-xk-aging Visit your local Senior Center to participate in stimulating activities and socialize with others -https://www.care51hejia.com.org/bppe08_jwuw_aehswm_vmhbaxm.htm He can use strategies to help optimize [...] for Neurodegenerative Delay (MIND) diet, is recommended. 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 Re-evaluation in approximately 18-24 months (or as needed). documented in this encounterProm[facility]25 NoteHNO ID: [id number] Author: EBONY TRENT DO Service: ? Author Type: Physician Type: Progress Notes Filed: 10/12/2024 14:47 Note Text: [facility] General Neurology Follow up/ Established patient visit Individuals who were included in, or assisted with the encounter were: Samir Castillo Ebony Black DO Chief Complaint/Issues: Samir Castillo is a 69 year old male seen in the [facility] for General Neurology for: Memory loss Most [...] here for follow-up of (more content not included)...[facility]03-03-2025 History of Present illness Narrative* Ebony Trent DO - 10/12/2024 11:28 AM EST Images from the original note were not included. [facility] Follow up/ Established patient visit Individuals who were included in, or assisted with the encounter were: Samir Castillo Ebony Black DO Chief Complaint/Issues: Samir Castillo is a 69 year old male seen in the [facility] for General Neurology for: Memory loss Most [...] 1/2 TABLETS BY MOUTH EVERY DAY omega 5-nry-udv-fish oil (FISH OIL) 100-160-1,000 mg cap Take [...] which included preparing to see the patient, rdre-be-vehm patient care, completing clinical documentation, obtaining and/or [...] 70 (Recommend sleep study) documented in this encounterPromedica [facility]iance [facility]03-03-2025 NoteHNO ID: [id number] Author: SANDRA JAY MA Service: ? Author Type: Sawmill Worker Type: Progress Notes Filed: 10/12/2024 14:47 Note [...] Sleep Apnea Probability Score: 70 (Recommend sleep study)[facility]02-27-2025 History of Present illness Narrative* Susan Watson [...] no compliance problems. Hypertensive end-organ damage includes CAD/MO. Heart Problem This is a chronic problem. [...] (ANTARA) 43 mg, Oral, Daily with breakfast Zprrjwmzafr-Enxdgflqr-Qiotei (Trelegy Ellipta) 100-62.5-25 MCG/ACT aerosol powder 1 [...] HISTORY Past Medical History: Diagnosis Date Alcoholism ([facility]) ( quit drinking 25 years ago) Anxiety and depression (CMS/[facility]) Bronchitis Chicken pox CKD (chronic [...] and neuropsych testing Coronary artery disease involving skokomish coronary artery of skokomish heart without angina pectoris ([facility]) - Primary Current meds: plavix, amlodipine, statin, b kelsy, nitroglycerin prn No acute symptoms, cont with [facility] Cardiology Relevant Medications clopidogrel (Plavix) 75 MG tablet isosorbide mononitrate ER (Imdur) 60 MG 24 hr tablet metoprolol tartrate (Lopressor) 50 MG tablet Mixed hyperlipidemia ([facility]) On statin and fenofibrate Check labs yearly and prn dose changes Relevant Medications atorvastatin (Lipitor) 80 MG tablet fenofibrate micronized (Antara) 43 MG capsule Chronic kidney disease, stage 4 (severe) ([facility]) Continue with Nephrology Gastroesophageal reflux disease without esophagitis Recommendations: freq small meals, nothing to eat or drink at least 2 hours prior to bed, limit caffeine, alcohol, as well as spicy foods Meds to limit or avoid if possible: NSAIDS Elevate HOB if possible Current med: pepcid Relevant Medications famotidine (Pepcid) 20 MG tablet EDITH (generalized anxiety disorder) ([facility]) Current meds: wellbutrin XL, buspar, sertraline, and trazodone EDITH 7=4 Had recent neuropsych testing has fu appt in a few weeks Relevant Medications sertraline (Zoloft) 100 MG tablet traZODone (Desyrel) 100 MG tablet Chronic obstructive pulmonary disease, unspecified ([facility]) Current meds: albuterol, trelegy Cannot afford trelegy, but does help breathing #2 samples trelegy: 100/25, XM5N, exp 01/04 Recurrent major depressive disorder, in full remission ([facility]) Current med: wellbutrin, sertralin, and trazodone PHQ 9=9 Primary hypertension ([facility]) Please check blood pressure daily [...] Recurrent major 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) (CMS/[facility]) Relevant Medications buPROPion XL (Wellbutrin XL) 300 MG 24 hr tablet busPIRone (Buspar) 15 MG tablet sertraline (Zoloft) 100 MG tablet traZODone (Desyrel) 100 MG tablet * Susan Watson NP - 10/08/2024 7:12 AM ESTAssociated Problem(s): Recurrent major depressive disorder, in full remission ([facility]) Current med: wellbutrin, sertralin, and trazodone PHQ 9=9 * Susan Watson NP - 10/08/2024 7:11 AM ESTAssociated Problem(s): Mixed hyperlipidemia (CMS/[facility]) On statin and fenofibrate Check labs yearly and prn dose changes * Susan Watson NP - 10/08/2024 7:10 AM ESTAssociated Problem(s): EDITH (generalized anxiety disorder) ([facility]) Current meds: wellbutrin XL, buspar, [...] AM ESTAssociated Problem(s): Coronary artery disease involving skokomish coronary artery of skokomish heart without angina pectoris (CMS/HCC) Current meds: plavix, amlodipine, statin, b kelsy, nitroglycerin prn No acute symptoms, cont with [facility] Cardiology * Susan Watson NP - 10/08/2024 7:06 AM ESTAssociated Problem(s): Chronic obstructive pulmonary disease, unspecified (CMS/HCC) Current meds: albuterol, trelegy Cannot afford trelegy, but does help breathing #2 samples trelegy: 100/25, XM5N, exp 01/04 documented in this [facility]02-27-2025 Instructions* Patient Instructions* Susan Watson NP - 10/08/2024 1:40 PM EST No med dose changes documented in this [facility]01-28-2025 NoteHNO ID: [id number] Author: MISTY POLO, PhD Service: ? Author Type: Psychologist Type: Progress Notes Filed: 09/10/2024 16:35 Note Text: [facility] Department of Neurology Section of Neuropsychology Neuropsychological Evaluation Report CONFIDENTIAL Patient: Samir Castillo Date of : 1955 Referred by: Ebony Black MD (Neurology) Education: 10 Handedness: R Language(s): Ukrainian Date of Evaluation: 09/08/2024 Mr. Castillo is [...] no Problems with mother's /delivery: no Early PURCHASING/RECEIVING infection, high fever, significant childhood illness: no SCHOOL HISTORY: Years of education completed: 10; left school early because he did not like it. 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 Castillo is [...] no Problems with mother's /delivery: no Early PURCHASING/RECEIVING infection, high fever, significant childhood illness: no SCHOOL HISTORY: Years of education completed: 10; left school early because he did not like it. 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 [place] non-verbal memory test, new learning was similarly [...] may benefit from the following community resources: [facility] Agencies on Aging -- , https://aging.[place].gov/about-us/who-we-are/mget-pwosplai-ch-aging Visit your local Senior Center to participate in stimulating activities and socialize with others -https://www.care[place].org/mzlu93_xbgx_hxsudk_qzflwrf.htm He can use strategies to help optimize [...] for Neurodegenerative Delay (MIND) diet, is recommended. 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 Re-evaluation in approximately 18-24 months (or as needed). These results have not been reviewed with the patient, but he will be provided access to this note via [employer]. It has been a pleasure to participate in his care. Please feel free to contact me if you have any questions regarding this report or my recommendations. Misty Polo, PhD, ABPP-CN Board Certified Clinical Neuropsychologist Neurological [place] The purpose of this evaluation was explained [...] = 2 hours Neuropsychological test administration/scoring by field technical specialist = 4 hours TESTS ADMINISTERED: Waite Anxiety Inventory, Waite Depression Inventory-2, Mas Judgment of Line Orientation (Form H), Durand Naming Test-2, Brief Visuospatial Memory Test- Revised (Form 2), Clinical Interview, Jessie Chowdhury Executive Function System (Color-Word Interference), Castro Verbal Learning Test-Revised (Form 2), Language Screen, Performance Validity Testing, Gregory Osterrieth Complex Figure Test (Miles System, copy), [place] Making Test (Parts A & B), Verbal Fluency (CFL, Animals/Fruits/Vegetables), Veena Adult Intelligence Scale-IV (Digit Span, Coding, Matrix Reasoning), Veena Memory Scale-IV (Logical Memory), [place] Card Sorting Test - 128 documented in this encounterPromedica [facility]11-11-2024 History of Present illness Narrative* Jayy [...] kidney disease) stage 4, GFR 15-29 ml/min ([facility]) Following with Nephrology. Avoid nephrotoxic [...] Addressed This Visit Coronary artery disease involving skokomish coronary artery of skokomish heart without angina pectoris ([facility]) Relevant Medications nitroglycerin (Nitrostat) 0.4 MG SL tablet Other hyperlipidemia ([facility]) Currently taking Atorvastatin 80mg Denies any myalgias. Continue current regimen. CKD (chronic kidney disease) stage 4, GFR 15-29 ml/min ([facility]) Following with Nephrology. Avoid nephrotoxic agents. Continue to monitor. Primary hypertension ([facility]) - Primary Currently taking amlodipine Imdur Metoprolol [...] referral to Physical Therapy documented in this encounterSSM Health [id number] Instructions* Patient Instructions* Jayy Coronado NP - [...] TO THE EMERGENCY ROOM!!! documented in this encounterSSM Health [id number] History of Present illness Narrative* Claire Vilchis [...] PATIENT PRESENTS WITH AN IMPLANTABLE OR ATTACHED RIM FIRE PRIMING OPERATOR: No RADIOLOGY DEPARTMENT: CT; Exam(s) Completed: Brain PERIPHERAL IV DATA: Not applicable SIGNED BY: KORY Bolivar May 12, 2024 8:35 AM documented in this encounterPromedica [facility]iance [facility]10-01-2024 NoteHNO ID: [id number] Author: CLAIRE VILCHIS CT Service: ? Author Type: Sign Poster Type: Progress Notes Filed: 05/12/2024 08:35 Note [...] PATIENT PRESENTS WITH AN IMPLANTABLE OR ATTACHED RIM FIRE PRIMING OPERATOR: No RADIOLOGY DEPARTMENT: CT; Exam(s) Completed: Brain PERIPHERAL IV DATA: Not applicable SIGNED BY: KORY Bolivar May 12, 2024 8:35 [facility]09-23-2024 Instructions* Patient Instructions* Ebony Trent DO - 05/04/2024 10:[address] scan of brain Physical therapy Follow-up after neuropsych Please do not climb ladders or do other activities for high fall risk. documented in this encounterPromedica Defiance [facility] Hospital09-23-2024 History of Present illness Narrative* Ebony Trent DO - 05/04/2024 9:30 AM EDT Images from the original note were not included. [facility] Follow up/ Established patient visit Individuals who were included in, or assisted with the encounter were: Samir Castillo Ebony Black DO Chief Complaint/Issues: Samir Castillo is a 69 year old male seen in the [facility] for General Neurology for: Memory loss Most [...] over medications. 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 MOCA December 2021 [...] 1/2 TABLETS BY MOUTH EVERY DAY omega 6-hqm-whs-fish oil (FISH OIL) 100-160-1,000 mg cap Take [...] which included preparing to see the patient, zqei-iy-nmxa patient care, completing clinical documentation, obtaining and/or [...] population and warrants attention documented in this encounterPromedica Defiance [facility] Hospital09-23-2024 NoteHNO ID: [id number] Author: EBONY TRENT DO Service: ? Author Type: Physician Type: Progress Notes Filed: 05/04/2024 22:17 Note Text: [facility] Follow up/ Established patient visit Individuals who were included in, or assisted with the encounter were: Samir Castillo Ebony Black DO Chief Complaint/Issues: Samir Castillo is a 69 year old male seen in the [facility] for General Neurology for: Memory loss Most [...] over medications. 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 GARETHCA December 2021 was 16. He thought someone [...] 50 mg tablet,extended release (more content not included)...[facility]02-08-2024 History of Present illness Narrative* Shaikh Cornelio MD - 09/19/2023 5:35 PM ESTAssociated Problem(s): EDITH (generalized anxiety disorder) (CMS/HCC) Improved now. C/w current regimen. * Shaikh Cornelio MD - 09/19/2023 5:35 PM ESTAssociated Problem(s): Other hyperlipidemia (CMS/HCC) Check Lipid panel. * Shaikh Cornelio MD - 09/19/2023 5:35 PM ESTAssociated Problem(s): Recurrent major 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) ([facility]) Symptoms improved and well controlled [...] kidney disease) stage 4, GFR 15-29 ml/min ([facility]) Has an appointment with Nephrology. Avoid NSAIDS. C/w current regimen. * Shaikh Cornelio MD - 09/19/2023 5:32 PM ESTAssociated Problem(s): Coronary artery disease involving skokomish coronary artery of skokomish heart without angina pectoris ([facility]) S/p CABG. On ASA, BB, Imdur, plavix, statin Denies CP, SOB, palpitations. Following [facility] cardiology. * Shaikh Cornelio MD [...] in the morning. Take with meals. [DISCONTINUED] Lzfchvfspvv-Ibfzobduj-Aquuer (Trelegy Ellipta) 100-62.5-25 MCG/ACT aerosol powder Inhale [...] Recurrent major 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) ([facility]) Symptoms improved and well controlled [...] Comprehensive metabolic panel Coronary artery disease involving skokomish coronary artery of skokomish heart without angina pectoris ([facility]) S/p CABG. On ASA, BB, Imdur, plavix, statin Denies CP, SOB, palpitations. Following [facility] cardiology. Relevant Medications aspirin 81 MG EC tablet isosorbide mononitrate ER (Imdur) 60 MG 24 hr tablet metoprolol tartrate (Lopressor) 50 MG tablet clopidogrel (Plavix) 75 MG tablet Other Relevant Orders CBC and differential Comprehensive metabolic panel Other hyperlipidemia ([facility]) Check Lipid panel. Relevant Medications atorvastatin (Lipitor) 80 MG tablet fenofibrate micronized (Antara) 43 MG capsule Other Relevant Orders Lipid panel CKD (chronic kidney disease) stage 4, GFR 15-29 ml/min ([facility]) Has an appointment with Nephrology. Avoid NSAIDS. C/w current regimen. Relevant Orders CBC and differential Comprehensive metabolic panel Protein, urine, random Creatinine, urine, random Gastroesophageal reflux disease without esophagitis Relevant Medications famotidine (Pepcid) 20 MG tablet EDITH (generalized anxiety disorder) ([facility]) Improved now. C/w current regimen. Relevant Medications sertraline (Zoloft) 100 MG tablet traZODone (Desyrel) 100 MG tablet Traumatic complete tear of left rotator cuff - Primary Noted on MRI - following Orthopedics. Patient has a follow up appointment next week and it appears that he will likely need surgery for it. Other Visit Diagnoses Primary hypertension ([facility]) Relevant Medications amLODIPine (Norvasc) 5 MG tablet isosorbide mononitrate ER (Imdur) 60 MG 24 hr tablet metoprolol tartrate (Lopressor) 50 MG tablet Other Relevant Orders CBC and differential Comprehensive metabolic panel Chronic obstructive pulmonary disease, unspecified COPD type ([facility]) Relevant Medications Usvofibkjen-Vgsgdpkyf-Slbtql (Trelegy Ellipta) 100-62.5-25 MCG/ACT aerosol powder No follow-ups on file. documented in this encounterSSM Health [id number] Instructions* Patient Instructions* Ebony Kaufman DO - 08/15/2022 4:17 PM EST Please work with your doctor on the sleep apnea and psychiatrist for depression. Follow-up in 6 months. documented in this encounterPromedica Defiance [facility]01-04-2023 History of Present illness Narrative* Ebony Kaufman DO - 08/15/2022 3:47 PM EST Images from the original note were not included. [facility] Follow up/ Established patient visit Individuals who were included in, or assisted with the encounter were: Samir Castillo Ebony Kaufman DO Chief Complaint/Issues: Samir Castillo is a 67 year old male seen in the [facility] for General Neurology for: Follow-up Most Recent [...] & Plan 08/15/2022 - General Neurology, Ebony Kaumfan, DO ASSESSMENT Mr. Castillo is a 67 [...] AND 1/2 TABLETS BY MOUTH EVERY DAY Iamwjjrofrtou-Tzkdcvnz-Cvrhfx (MULTIVITAMIN 50 PLUS) tab Take 1 tablet by mouth once daily. omega 8-qui-qgc-fish oil (FISH OIL) 100-160-1,000 mg cap Take [...] which included preparing to see the patient, tnbc-zs-pllu patient care, completing clinical documentation, obtaining and/or reviewing separately obtained history, performing a medically appropriate examination, counseling and educating the pat ient/family/caregiver, and ordering medications, tests, or procedures. Ebony Kaufman DO documented in this encounterPromedica Defiance [facility] Hospital11-29-2022 Evaluation note* Encounter Date Diagnosis Assessment [...] mmol/L. 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 documented in this encounterPromedica Defiance [facility] Hospital08-30-2022 History of Present illness Narrative* Ebony Kaufman DO - 04/10/2022 10:11 AM EDT Images from the original note were not included. [facility] General Neurology New Patient Evaluation Consulting Provider: Jessie Bright [id number] [facility] [address] Individuals who were included in, or assisted with the encounter were: Samir Castillo Ebony Kaufman DO Chief Complaint/Issues: Samir Castillo is a 66 year old male seen in the [facility] for General Neurology for: Memory HPI: Here [...] notices problems with both short term and retirement memory Language: yes, word finding problems. Knows [...] AND 1/2 TABLETS BY MOUTH EVERY DAY Lzsflxkisjjlh-Clrttqxa-Jdsghf (MULTIVITAMIN 50 PLUS) tab Take 1 tablet by mouth once daily. omega 2-bek-tgb-fish oil (FISH OIL) 100-160-1,000 mg cap Take [...] which included preparing to see the patient, jxxw-cs-nwtg patient care, completing clinical documentation, obtaining and/or reviewing separately obtained history, performing a medically appropriate examination, and counseling and educating the patient/family/caregiver. Ebony Kaufman DO documented in this encounterProm[facility]* Encounter Date Diagnosis Assessment Notes Treatment Notes Treatment Clinical Notes Mar, Depression, major, recurrent, moderate (ICD-10 - F33.1) [facility] Other 07-25-2022 Evaluation note* Encounter Date Diagnosis Assessment Notes Treatment Notes Treatment Clinical Notes Feb, Depression, major, recurrent, moderate (ICD-10 - F33.1) [facility] Other 07-19-2022 Evaluation note* Encounter Date Diagnosis [...] Sleep apnea, unspecified type (ICD-10 - G47.30) [facility] Other 07-01-2022 Miscellaneous Notes* Telephone Encounter - Mariana Hartmann - 02/09/2022 1:57 PM EDT Patients daughter Princess notified of message below. Voiced understanding, and was appreciative of call. [place], The MRI does show generalized volume loss [...] Dr. Roche Message text documented in this encounterProm[facility] History of Present illness Narrative* Brayan Trent CRT - 02/09/2022 10:41 AM EDT PULM FUNCTION SMARTBLOCK: Provider: Prince Aby MD Spirometry w/BD: 1 System: MC9 - [id number] documented in this encounterPromed[facility]06-30-[facility] History of Present illness Narrative* RT [...] 08, 2022 4:21 PM documented in this encounterPromedica [facility]06-20-[facility]22 Evaluation note* Encounter Date Diagnosis Assessment [...] relief. 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 He did have an appointment with [place] [facility] but has since decided to see pulmonology in [place]. Given his PFT and CT results I [...] with Dr. Hurtado at their upcoming appointment. [facility] Other 05-27-2022 Evaluation note* Encounter Date Diagnosis Assessment Notes Treatment Notes Treatment Clinical Notes December, Obstructive lung disease (ICD-10 - J44.9) December, Pulmonary nodule (ICD-10 - R91.1) [facility] Other 05-23-2022 Evaluation note* Encounter Date Diagnosis Assessment Notes Treatment Notes Treatment Clinical Notes December, Shortness of breath (ICD-10 - R06.02) [facility] Other 05-17-2022 Evaluation note* Encounter Date Diagnosis [...] next month or so we will recheck. [facility] Other 05-13-2022 History of Present illness Narrative* Jessie Bright MD - 12/22/2021 8:41 AM EDT Images from the original note were not included. [facility] General Neurology New Patient Evaluation Consulting Provider: SELF Individuals who were included in, or assisted with the encounter were: Samir Castillo Jessie Bright MD Chief Complaint/Issues: Samir Castillo is a 66 year old male seen in the [facility] for General Neurology for: 1. Memory loss. [...] notices problems with both short term and retirement memory Language: yes, word finding problems. Knows [...] AND 1/2 TABLETS BY MOUTH EVERY DAY Jylszjfceezls-Rekvjsgj-Uiwosh (MULTIVITAMIN 50 PLUS) tab Take 1 tablet by mouth once daily. omega 1-kdf-tvo-fish oil (FISH OIL) 100-160-1,000 mg cap Take [...] which included preparing to see the patient, [id number] patient care, completing clinical documentation and performing a medically appropriate examination. Jessie Bright MD documented in this encounterProm[facility]05-09-2022 Evaluation note* Encounter Date Diagnosis Assessment Notes Treatment Notes Treatment Clinical Notes December, Depression, major, recurrent, moderate (ICD-10 - F33.1) [facility] Other 10-12-2021 Evaluation note* Encounter Date Diagnosis [...] metoprolol. He follow-up with Dr. Rubio, his religious studies professor in [place]. He stated that his heart looks fine. [...] at home also runs between 140-150 systolic. [place] systolic blood pressure at home should be [...] his PCP Dr. Arellano for lipid profile. 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)- Primary Other persistent mental disorders due to conditions classified elsewhere Cognitive impairment, mild, so stated Mild cognitive impairment, so stated Depression, unspecified depression type documented in this encounter [facility] noteNo InformationNortMer[facility] Other [facility] noteNophelps health [facility] Other Evaluation note* Diagnosis Cognitive impairment, mild, so stated- Primary Mild cognitive impairment, so stated documented in this encounter [facility] note* Diagnosis Shortness of breath- Primary documented in this encounter [facility] note* Diagnosis Cognitive impairment, mild, so stated Mild cognitive impairment, so stated 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* Diagnosis Recurrent major 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)- Primary Major depressive disorder, recurrent episode, in partial or unspecified remission MCI (mild cognitive impairment) Mild cognitive impairment, so stated documented in this encounter [facility] noteNo assessment information [facility] Work Phone: Evaluation note* Diagnosis MCI (mild cognitive impairment)- Primary Mild cognitive impairment, so stated documented in this encounter [facility] noteNophelps health [facility] Other Evaluation note* Diagnosis Traumatic complete tear of left rotator cuff, subsequent encounter- Primary Recurrent major 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) (CMS/HCC) Major depressive disorder, recurrent episode, in partial or unspecified remission Other hyperlipidemia (CMS/HCC) EDITH (generalized anxiety disorder) ([facility]/HCC) Generalized anxiety disorder CKD (chronic kidney disease) stage 4, GFR 15-29 ml/min ([facility]/HCC) Chronic kidney disease, Stage IV (severe) Gastroesophageal reflux disease without esophagitis Esophageal reflux Coronary artery disease involving sk[place] coronary artery of skokomish heart without angina pectoris (CMS/HCC) Primary hypertension ([facility]/HCC) Unspecified essential hypertension Chronic obstructive pulmonary disease, unspecified COPD type (CMS/HCC) [facility] Diagnosis Onset Date Resolution Status Anemia acute CAD (coronary artery disease) of artery bypass graft acute Chronic kidney disease, stage 3b acute Hyperkalemia acute Hyperlipemia acute [id number] [facility] Work Phone: Evaluation note* Diagnosis Dyspnea and respiratory abnormalities- Primary Other dyspnea and respiratory abnormality Centrilobular emphysema (HCC) Other emphysema Class 1 obesity due to excess calories with serious comorbidity and body mass index (BMI) of 32.0 to 32.9 in adult Sleep-disordered breathing Other sleep disturbances Memory loss- Primary Abnormality of gait documented in this encounter [facility] note* Diagnosis Dyspnea and respiratory abnormalities- Primary Other dyspnea and respiratory abnormality Centrilobular emphysema (HCC) Other emphysema Class 1 obesity due to excess calories with serious comorbidity and body mass index (BMI) of 32.0 to 32.9 in adult Sleep-disordered breathing Other sleep disturbances Memory loss documented in this encounter [facility]* Diagnosis Traumatic complete tear of left rotator cuff, subsequent encounter- Primary Recurrent major 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) ([facility]) Major depressive disorder, recurrent episode, in partial or unspecified remission Other hyperlipidemia ([facility]) EDITH (generalized anxiety disorder) ([facility]) Generalized anxiety disorder CKD (chronic kidney disease) stage 4, GFR 15-29 ml/min ([facility]) Chronic kidney disease, Stage IV (severe) Gastroesophageal reflux disease without esophagitis Esophageal reflux Coronary artery disease involving sk[place] coronary artery of sk[place] heart without angina pectoris ([facility]) Primary hypertension ([facility]) Unspecified essential hypertension Chronic obstructive pulmonary disease, unspecified COPD type ([facility]) Chronic obstructive pulmonary disease, unspecified COPD type ([facility])- Primary Coronary artery disease involving [place] coronary artery of sk[place] heart without angina pectoris ([facility]) CKD (chronic kidney disease) stage 4, GFR 15-29 ml/min ([facility]) Chronic kidney disease, Stage IV (severe) Gastroesophageal reflux disease without esophagitis Esophageal reflux Recurrent major depressive disorder, in full remission ([facility]) Other hyperlipidemia ([facility]) EDITH (generalized anxiety disorder) ([facility]) Generalized anxiety disorder Recurrent major 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) ([facility]) Major depressive disorder, recurrent episode, in partial or unspecified remission Primary hypertension ([facility] Unspecified essential hypertension Primary hypertension ([facility])- Primary Unspecified essential hypertension Other hyperlipidemia ([facility]) Coronary artery disease involving sk[place] coronary artery of sk[place]omish heart without angina pectoris ([facility]) Frequent falls Functional gait abnormality CKD (chronic kidney disease) stage 4, GFR 15-29 ml/min ([facility]/HCC) Chronic kidney disease, Stage IV (severe) [facility] Diagnosis Traumatic complete tear of left rotator cuff, subsequent encounter- Primary Recurrent major 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) ([facility]) Major depressive disorder, recurrent episode, in partial or unspecified remission Other hyperlipidemia ([facility]) EDITH (generalized anxiety disorder) ([facility]) Generalized anxiety disorder CKD (chronic kidney disease) stage 4, GFR 15-29 ml/min ([facility]) Chronic kidney disease, Stage IV (severe) Gastroesophageal reflux disease without esophagitis Esophageal reflux Coronary artery disease involving [place] coronary artery of sk[place] heart without angina pectoris ([facility]) Primary hypertension ([facility]) Unspecified essential hypertension Chronic obstructive pulmonary disease, unspecified COPD type ([facility]) Chronic obstructive pulmonary disease, unspecified COPD type ([facility])- Primary Coronary artery disease involving [place] coronary artery of sk[place] heart without angina pectoris ([facility]) CKD (chronic kidney disease) stage 4, GFR 15-29 ml/min ([facility]) Chronic kidney disease, Stage IV (severe) Gastroesophageal reflux disease without esophagitis Esophageal reflux Recurrent major depressive disorder, in full remission ([facility]) Other hyperlipidemia ([facility]) EDITH (generalized anxiety disorder) ([facility] Generalized anxiety disorder Recurrent major depression in partial remission (HCC) ([facility]) Major depressive disorder, recurrent episode, in partial or unspecified remission Primary hypertension ([facility] Unspecified essential hypertension Primary hypertension ([facility])- Primary Unspecified essential hypertension Other hyperlipidemia ([facility]) Coronary artery disease involving [place] coronary artery of sk[place] heart without angina pectoris ([facility]) Frequent falls Functional gait abnormality CKD (chronic kidney disease) stage 4, GFR 15-29 ml/min ([facility]) Chronic kidney disease, Stage IV (severe) Recurrent major depression in partial remission (HCC) ([facility]) Major depressive disorder, recurrent episode, in partial or unspecified remission documented in this encounter [facility]* Diagnosis Gastroesophageal reflux disease without esophagitis Esophageal reflux Recurrent major depression in partial remission (HCC) ([facility]) Major depressive disorder, recurrent episode, in partial or unspecified remission documented in this encounter [facility]* Diagnosis Dyspnea [...] type, unspecified whether angina present, unspecified whether sk[place]omish or transplanted heart Complaints of memory disturbance Memory loss [facility] Traumatic complete tear of left rotator cuff, subsequent encounter- Primary Recurrent major depression in partial remission (HCC) ([facility]) Major depressive disorder, recurrent episode, in partial or unspecified remission Other hyperlipidemia ([facility]) EDITH (generalized anxiety disorder) ([facility]) Generalized anxiety disorder CKD (chronic kidney disease) stage 4, GFR 15-29 ml/min ([facility]) Chronic kidney disease, Stage IV (severe) Gastroesophageal reflux disease without esophagitis Esophageal reflux Coronary artery disease involving [place] coronary artery of sk[place] heart without angina pectoris ([facility]) Primary hypertension ([facility]) Unspecified essential hypertension Chronic obstructive pulmonary disease, unspecified COPD type ([facility]) Chronic obstructive pulmonary disease, unspecified COPD type ([facility])- Primary Coronary artery disease involving [place] coronary artery of sk[place] heart without angina pectoris ([facility]) CKD (chronic kidney disease) stage 4, GFR 15-29 ml/min ([facility]) Chronic kidney disease, Stage IV (severe) Gastroesophageal reflux disease without esophagitis Esophageal reflux Recurrent major depressive disorder, in full remission ([facility]) Other hyperlipidemia ([facility]) EDITH (generalized anxiety disorder) ([facility]) Generalized anxiety disorder Recurrent major depression in partial remission ([facility]) ([facility]) Major depressive disorder, recurrent episode, in partial or unspecified remission Primary hypertension ([facility] Unspecified essential hypertension Primary hypertension ([facility])- Primary Unspecified essential hypertension Other hyperlipidemia ([facility]) Coronary artery disease involving sk[place] coronary artery of sk[place]omish heart without angina pectoris ([facility]) Frequent falls Functional gait abnormality CKD (chronic kidney disease) stage 4, GFR 15-29 ml/min ([facility]) Chronic kidney disease, Stage IV (severe) Primary hypertension ([facility])- Primary Unspecified essential hypertension Chronic obstructive pulmonary disease, unspecified COPD type ([facility]) Chronic kidney disease, stage 4 (severe) ([facility]) Coronary artery disease involving [place] coronary artery of sk[place] heart without angina pectoris ([facility]) Gastroesophageal reflux disease without esophagitis Esophageal reflux EDITH (generalized anxiety disorder) ([facility]) Generalized anxiety disorder Recurrent major depressive disorder, in full remission ([facility]) Mixed hyperlipidemia ([facility]) Mixed hyperlipidemia MCI (mild cognitive impairment) Mild cognitive impairment, so stated Other hyperlipidemia ([facility]/HCC) Recurrent major depression in partial remission (HCC) ([facility]/HCC) Major depressive disorder, recurrent episode, in partial or unspecified remission [facility] Diagnosis Dyspnea and respiratory abnormalities- Primary Other dyspnea and respiratory abnormality Centrilobular emphysema (HCC) Other emphysema Class 1 obesity due to excess calories with serious comorbidity and body mass index (BMI) of 32.0 to 32.9 in adult Sleep-disordered breathing Other sleep disturbances Gait abnormality- Primary Abnormality of gait Memory loss Neck pain Cervicalgia documented in this [facility] Diagnosis Onset Date Resolution Status [...] ki acute October 27, 2 025 3:58pm [facility] Work Phone: Evaluation note* Diagnosis Traumatic complete tear of left rotator cuff, subsequent encounter- Primary Recurrent major depression in partial remission (HCC) ([facility]) Major depressive disorder, recurrent episode, in partial or unspecified remission Other hyperlipidemia EDITH (generalized anxiety disorder) ([facility]) Generalized anxiety disorder CKD (chronic kidney disease) stage 4, GFR 15-29 ml/min ([facility]/HCC) Chronic kidney disease, Stage IV (severe) Gastroesophageal reflux disease without esophagitis Esophageal reflux Coronary artery disease involving [place] coronary artery of sk[place] heart without angina pectoris ([facility]) Primary hypertension ([facility]) Unspecified essential hypertension Chronic obstructive pulmonary disease, unspecified COPD type ([facility]) Chronic obstructive pulmonary disease, unspecified COPD type ([facility])- Primary Coronary artery disease involving [place] coronary artery of sk[place] heart without angina pectoris ([facility]) CKD (chronic kidney disease) stage 4, GFR 15-29 ml/min ([facility]/HCC) Chronic kidney disease, Stage IV (severe) Gastroesophageal reflux disease without esophagitis Esophageal reflux Recurrent major depressive disorder, in full remission (CMS/HCC) Other hyperlipidemia EDITH (generalized anxiety disorder) ([facility]) Generalized anxiety disorder Recurrent major depression in partial remission (HCC) ([facility]) Major depressive disorder, recurrent episode, in partial or unspecified remission Primary hypertension ([facility]) Unspecified essential hypertension Primary hypertension ([facility])- Primary Unspecified essential hypertension Other hyperlipidemia Coronary artery disease involving [place] coronary artery of sk[place] heart without angina pectoris ([facility]) Frequent falls Functional gait abnormality CKD (chronic kidney disease) stage 4, GFR 15-29 ml/min ([facility]) Chronic kidney disease, Stage IV (severe) Primary hypertension ([facility])- Primary Unspecified essential hypertension Chronic obstructive pulmonary disease, unspecified COPD type ([facility]) Chronic kidney disease, stage 4 (severe) ([facility]) Coronary artery disease involving [place] coronary artery of sk[place] heart without angina pectoris ([facility]) Gastroesophageal reflux disease without esophagitis Esophageal reflux EDITH (generalized anxiety disorder) ([facility]) Generalized anxiety disorder Recurrent major depressive disorder, in full remission ([facility]) Mixed hyperlipidemia ([facility]) Mixed hyperlipidemia MCI (mild cognitive impairment) Mild cognitive impairment, so stated Other hyperlipidemia Recurrent major depression in partial remission (HCC) ([facility]) Major depressive disorder, recurrent episode, in partial or unspecified remission Other hyperlipidemia EDITH (generalized anxiety disorder) ([facility]) Generalized anxiety disorder Recurrent major depression in partial remission (HCC) ([facility]) Major depressive disorder, recurrent episode, in partial or unspecified remission documented in this encounter [facility]* Diagnosis Traumatic complete tear of left rotator cuff, subsequent encounter- Primary Recurrent major depression in partial remission (HCC) ([facility]) Major depressive disorder, recurrent episode, in partial or unspecified remission Other hyperlipidemia EDITH (generalized anxiety disorder) ([facility]) Generalized anxiety disorder CKD (chronic kidney disease) stage 4, GFR 15-29 ml/min ([facility]) Chronic kidney disease, Stage IV (severe) Gastroesophageal reflux disease without esophagitis Esophageal reflux Coronary artery disease involving [place] coronary artery of [place] heart without angina pectoris ([facility]) Primary hypertension ([facility]) Unspecified essential hypertension Chronic obstructive pulmonary disease, unspecified COPD type ([facility]) Chronic obstructive pulmonary disease, unspecified COPD type ([facility])- Primary Coronary artery disease involving [place] coronary artery of [place] heart without angina pectoris ([facility]) CKD (chronic kidney disease) stage 4, GFR 15-29 ml/min ([facility]) Chronic kidney disease, Stage IV (severe) Gastroesophageal reflux disease without esophagitis Esophageal reflux Recurrent major depressive disorder, in full remission ([facility]) Other hyperlipidemia EDITH (generalized anxiety disorder) ([facility] Generalized anxiety disorder Recurrent major depression in partial remission (HCC) ([facility]) Major depressive disorder, recurrent episode, in partial or unspecified remission Primary hypertension ([facility] Unspecified essential hypertension Primary hypertension ([facility])- Primary Unspecified essential hypertension Other hyperlipidemia Coronary artery disease involving [place] coronary artery of [place] heart without angina pectoris ([facility]) Frequent falls Functional gait abnormality CKD (chronic kidney disease) stage 4, GFR 15-29 ml/min ([facility]) Chronic kidney disease, Stage IV (severe) Primary hypertension ([facility])- Primary Unspecified essential hypertension Chronic obstructive pulmonary disease, unspecified COPD type ([facility]) Chronic kidney disease, stage 4 (severe) ([facility]) Coronary artery disease involving [place] coronary artery of [place] heart without angina pectoris ([facility]) Gastroesophageal reflux disease without esophagitis Esophageal reflux EDITH (generalized anxiety disorder) ([facility]) Generalized anxiety disorder Recurrent major depressive disorder, in full remission ([facility]) Mixed hyperlipidemia ([facility]) Mixed hyperlipidemia MCI (mild cognitive impairment) Mild cognitive impairment, so stated Other hyperlipidemia Recurrent major depression in partial remission (HCC) ([facility]) Major depressive disorder, recurrent episode, in partial or unspecified remission Primary hypertension ([facility]) Unspecified essential hypertension Other hyperlipidemia Recurrent major depression in partial remission (HCC) ([facility]) Major depressive disorder, recurrent episode, in partial or unspecified remission Coronary artery disease involving [place] coronary artery of [place] heart without angina pectoris ([facility]) Gastroesophageal reflux disease without esophagitis Esophageal reflux EDITH (generalized anxiety disorder) ([facility]) Generalized anxiety disorder documented in this encounter [facility]* Diagnosis Traumatic complete tear of left rotator cuff, subsequent encounter- Primary Recurrent major depression in partial remission (HCC) ([facility]) Major depressive disorder, recurrent episode, in partial or unspecified remission Other hyperlipidemia EDITH (generalized anxiety disorder) ([facility]) Generalized anxiety disorder CKD (chronic kidney disease) stage 4, GFR 15-29 ml/min ([facility]) Chronic kidney disease, Stage IV (severe) Gastroesophageal reflux disease without esophagitis Esophageal reflux Coronary artery disease involving [place] coronary artery of [place] heart without angina pectoris ([facility]) Primary hypertension ([facility]) Unspecified essential hypertension Chronic obstructive pulmonary disease, unspecified COPD type ([facility]) Chronic obstructive pulmonary disease, unspecified COPD type ([facility])- Primary Coronary artery disease involving [place] coronary artery of [place] heart without angina pectoris ([facility]) CKD (chronic kidney disease) stage 4, GFR 15-29 ml/min ([facility]) Chronic kidney disease, Stage IV (severe) Gastroesophageal reflux disease without esophagitis Esophageal reflux Recurrent major depressive disorder, in full remission ([facility]) Other hyperlipidemia EDITH (generalized anxiety disorder) ([facility]) Generalized anxiety disorder Recurrent major depression in partial remission (HCC) ([facility]) Major depressive disorder, recurrent episode, in partial or unspecified remission Primary hypertension ([facility] Unspecified essential hypertension Primary hypertension ([facility])- Primary Unspecified essential hypertension Other hyperlipidemia Coronary artery disease involving [place] coronary artery of [place] heart without angina pectoris ([facility]) Frequent falls Functional gait abnormality CKD (chronic kidney disease) stage 4, GFR 15-29 ml/min ([facility]) Chronic kidney disease, Stage IV (severe) Primary hypertension ([facility])- Primary Unspecified essential hypertension Chronic obstructive pulmonary disease, unspecified COPD type ([facility]) Chronic kidney disease, stage 4 (severe) ([facility]) Coronary artery disease involving [place] coronary artery of [place] heart without angina pectoris ([facility]) Gastroesophageal reflux disease without esophagitis Esophageal reflux EDITH (generalized anxiety disorder) ([facility]) Generalized anxiety disorder Recurrent major depressive disorder, in full remission ([facility]) Mixed hyperlipidemia ([facility]) Mixed hyperlipidemia MCI (mild cognitive impairment) Mild cognitive impairment, so stated Other hyperlipidemia Recurrent major depression in partial remission (HCC) ([facility]) Major depressive disorder, recurrent episode, in partial or unspecified remission Neck pain- Primary Cervicalgia Primary hypertension ([facility]) Unspecified essential hypertension Chronic kidney disease, stage 4 (severe) ([facility]) EDITH (generalized anxiety disorder) ([facility]) Generalized anxiety disorder Functional gait abnormality MCI (mild cognitive impairment) Mild cognitive impairment, so stated documented in this encounter [facility]* Diagnosis Traumatic complete tear of left rotator cuff, subsequent encounter- Primary Recurrent major depression in partial remission (HCC) ([facility]) Major depressive disorder, recurrent episode, in partial or unspecified remission Other hyperlipidemia EDITH (generalized anxiety disorder) ([facility]) Generalized anxiety disorder CKD (chronic kidney disease) stage 4, GFR 15-29 ml/min ([facility]) Chronic kidney disease, Stage IV (severe) Gastroesophageal reflux disease without esophagitis Esophageal reflux Coronary artery disease involving [place] coronary artery of [place] heart without angina pectoris ([facility]) Primary hypertension ([facility]) Unspecified essential hypertension Chronic obstructive pulmonary disease, unspecified COPD type ([facility]) Chronic obstructive pulmonary disease, unspecified COPD type ([facility])- Primary Coronary artery disease involving [place] coronary artery of [place] heart without angina pectoris ([facility]) CKD (chronic kidney disease) stage 4, GFR 15-29 ml/min ([facility]) Chronic kidney disease, Stage IV (severe) Gastroesophageal reflux disease without esophagitis Esophageal reflux Recurrent major depressive disorder, in full remission ([facility]) Other hyperlipidemia EDITH (generalized anxiety disorder) ([facility]) Generalized anxiety disorder Recurrent major depression in partial remission (HCC) ([facility]) Major depressive disorder, recurrent episode, in partial or unspecified remission Primary hypertension ([facility]) Unspecified essential hypertension Primary hypertension ([facility])- Primary Unspecified essential hypertension Other hyperlipidemia Coronary artery disease involving [place] coronary artery of [place] heart without angina pectoris ([facility]) Frequent falls Functional gait abnormality CKD (chronic kidney disease) stage 4, GFR 15-29 ml/min ([facility]) Chronic kidney disease, Stage IV (severe) Primary hypertension ([facility])- Primary Unspecified essential hypertension Chronic obstructive pulmonary disease, unspecified COPD type ([facility]) Chronic kidney disease, stage 4 (severe) ([facility]) Coronary artery disease involving [place] coronary artery of [place] heart without angina pectoris ([facility]) Gastroesophageal reflux disease without esophagitis Esophageal reflux EDITH (generalized anxiety disorder) ([facility]) Generalized anxiety disorder Recurrent major depressive disorder, in full remission ([facility]) Mixed hyperlipidemia ([facility]) Mixed hyperlipidemia MCI (mild cognitive impairment) Mild cognitive impairment, so stated Other hyperlipidemia Recurrent major depression in partial remission (HCC) ([facility]) Major depressive disorder, recurrent episode, in partial or unspecified remission Neck pain- Primary Cervicalgia Primary hypertension ([facility]) Unspecified essential hypertension Chronic kidney disease, stage 4 (severe) ([facility]) EDITH (generalized anxiety disorder) ([facility]) Generalized anxiety disorder Functional gait abnormality MCI (mild cognitive impairment) Mild cognitive impairment, so stated EDITH (generalized anxiety disorder) ([facility])- Primary Generalized anxiety disorder documented in this encounter [facility]* Diagnosis Traumatic complete tear of left rotator cuff, subsequent encounter- Primary Recurrent major depression in partial remission (HCC) ([facility]) Major depressive disorder, recurrent episode, in partial or unspecified remission Other hyperlipidemia EDITH (generalized anxiety disorder) ([facility]) Generalized anxiety disorder CKD (chronic kidney disease) stage 4, GFR 15-29 ml/min ([facility]) Chronic kidney disease, Stage IV (severe) Gastroesophageal reflux disease without esophagitis Esophageal reflux Coronary artery disease involving [place] coronary artery of [place] heart without angina pectoris ([facility]) Primary hypertension ([facility]) Unspecified essential hypertension Chronic obstructive pulmonary disease, unspecified COPD type ([facility]) Chronic obstructive pulmonary disease, unspecified COPD type ([facility])- Primary Coronary artery disease involving [place] coronary artery of [place] heart without angina pectoris ([facility]) CKD (chronic kidney disease) stage 4, GFR 15-29 ml/min ([facility]) Chronic kidney disease, Stage IV (severe) Gastroesophageal reflux disease without esophagitis Esophageal reflux Recurrent major depressive disorder, in full remission ([facility]) Other hyperlipidemia EDITH (generalized anxiety disorder) ([facility]) Generalized anxiety disorder Recurrent major depression in partial remission (HCC) ([facility]) Major depressive disorder, recurrent episode, in partial or unspecified remission Primary hypertension ([facility]) Unspecified essential hypertension Primary hypertension ([facility])- Primary Unspecified essential hypertension Other hyperlipidemia Coronary artery disease involving [place] coronary artery of [place] heart without angina pectoris ([facility]) Frequent falls Functional gait abnormality CKD (chronic kidney disease) stage 4, GFR 15-29 ml/min ([facility]) Chronic kidney disease, Stage IV (severe) Primary hypertension ([facility])- Primary Unspecified essential hypertension Chronic obstructive pulmonary disease, unspecified COPD type ([facility]) Chronic kidney disease, stage 4 (severe) ([facility]) Coronary artery disease involving [place] coronary artery of [place] heart without angina pectoris ([facility]) Gastroesophageal reflux disease without esophagitis Esophageal reflux EDITH (generalized anxiety disorder) ([facility]) Generalized anxiety disorder Recurrent major depressive disorder, in full remission ([facility]) Mixed hyperlipidemia ([facility]) Mixed hyperlipidemia MCI (mild cognitive impairment) Mild cognitive impairment, so stated Other hyperlipidemia Recurrent major depression in partial remission (HCC) ([facility]) Major depressive disorder, recurrent episode, in partial or unspecified remission Neck pain- Primary Cervicalgia Primary hypertension ([facility]) Unspecified essential hypertension Chronic kidney disease, stage 4 (severe) ([facility]) EDITH (generalized anxiety disorder) ([facility]) Generalized anxiety disorder Functional gait abnormality MCI (mild cognitive impairment) Mild cognitive impairment, so stated Other hyperlipidemia Coronary artery disease involving [place] coronary artery of [place] heart without angina pectoris ([facility]) Primary hypertension ([facility]) Unspecified essential hypertension Recurrent major depression in partial remission (HCC) ([facility]) Major depressive disorder, recurrent episode, in partial or unspecified remission EDITH (generalized anxiety disorder) ([facility]) Generalized anxiety disorder documented in this encounter [facility]* Diagnosis Traumatic complete tear of left rotator cuff, subsequent encounter- Primary Recurrent major depression in partial remission (HCC) ([facility]) Major depressive disorder, recurrent episode, in partial or unspecified remission Other hyperlipidemia EDITH (generalized anxiety disorder) ([facility]) Generalized anxiety disorder CKD (chronic kidney disease) stage 4, GFR 15-29 ml/min ([facility]) Chronic kidney disease, Stage IV (severe) Gastroesophageal reflux disease without esophagitis Esophageal reflux Coronary artery disease involving [place] coronary artery of [place] heart without angina pectoris ([facility]) Primary hypertension ([facility]) Unspecified essential hypertension Chronic obstructive pulmonary disease, unspecified COPD type ([facility]) Chronic obstructive pulmonary disease, unspecified COPD type ([facility])- Primary Coronary artery disease involving [place] coronary artery of [place] heart without angina pectoris ([facility]) CKD (chronic kidney disease) stage 4, GFR 15-29 ml/min ([facility]) Chronic kidney disease, Stage IV (severe) Gastroesophageal reflux disease without esophagitis Esophageal reflux Recurrent major depressive disorder, in full remission ([facility]) Other hyperlipidemia EDITH (generalized anxiety disorder) ([facility]) Generalized anxiety disorder Recurrent major depression in partial remission (HCC) ([facility]) Major depressive disorder, recurrent episode, in partial or unspecified remission Primary hypertension ([facility]) Unspecified essential hypertension Primary hypertension ([facility])- Primary Unspecified essential hypertension Other hyperlipidemia Coronary artery disease involving [place] coronary artery of [place] heart without angina pectoris ([facility]) Frequent falls Functional gait abnormality CKD (chronic kidney disease) stage 4, GFR 15-29 ml/min ([facility]) Chronic kidney disease, Stage IV (severe) Primary hypertension ([facility])- Primary Unspecified essential hypertension Chronic obstructive pulmonary disease, unspecified COPD type ([facility]) Chronic kidney disease, stage 4 (severe) ([facility]) Coronary artery disease involving [place] coronary artery of [place] heart without angina pectoris ([facility] Gastroesophageal reflux disease without esophagitis Esophageal reflux EDITH (generalized anxiety disorder) ([facility]) Generalized anxiety disorder Recurrent major depressive disorder, in full remission ([facility]) Mixed hyperlipidemia ([facility]) Mixed hyperlipidemia MCI (mild cognitive impairment) Mild cognitive impairment, so stated Other hyperlipidemia Recurrent major depression in partial remission (HCC) ([facility]) Major depressive disorder, recurrent episode, in partial or unspecified remission Neck pain- Primary Cervicalgia Primary hypertension ([facility]) Unspecified essential hypertension Chronic kidney disease, stage 4 (severe) ([facility]) EDITH (generalized anxiety disorder) ([facility]) Generalized anxiety disorder Functional gait abnormality MCI (mild cognitive impairment) Mild cognitive impairment, so stated Primary hypertension ([facility]) Unspecified essential hypertension Other hyperlipidemia Neck pain Cervicalgia Recurrent major depression in partial remission (HCC) ([facility]) Major depressive disorder, recurrent episode, in partial or unspecified remission Coronary artery disease involving [place] coronary artery of sk[place] heart without angina pectoris ([facility]) Gastroesophageal reflux disease without esophagitis Esophageal reflux Chronic obstructive pulmonary disease, unspecified COPD type ([facility]) EDITH (generalized anxiety disorder) ([facility]) Generalized anxiety disorder [facility] Diagnosis Traumatic complete tear of left rotator cuff, subsequent encounter- Primary Recurrent major depression in partial remission (HCC) ([facility]) Major depressive disorder, recurrent episode, in partial or unspecified remission Other hyperlipidemia EDITH (generalized anxiety disorder) ([facility]) Generalized anxiety disorder CKD (chronic kidney disease) stage 4, GFR 15-29 ml/min ([facility]) Chronic kidney disease, Stage IV (severe) Gastroesophageal reflux disease without esophagitis Esophageal reflux Coronary artery disease involving [place] coronary artery of [place] heart without angina pectoris ([facility]) Primary hypertension ([facility]) Unspecified essential hypertension Chronic obstructive pulmonary disease, unspecified COPD type ([facility]) Chronic obstructive pulmonary disease, unspecified COPD type ([facility])- Primary Coronary artery disease involving [place] coronary artery of [place] heart without angina pectoris ([facility]) CKD (chronic kidney disease) stage 4, GFR 15-29 ml/min ([facility]) Chronic kidney disease, Stage IV (severe) Gastroesophageal reflux disease without esophagitis Esophageal reflux Recurrent major depressive disorder, in full remission ([facility]) Other hyperlipidemia EDITH (generalized anxiety disorder) ([facility] Generalized anxiety disorder Recurrent major depression in partial remission (HCC) ([facility]) Major depressive disorder, recurrent episode, in partial or unspecified remission Primary hypertension ([facility]) Unspecified essential hypertension Primary hypertension ([facility])- Primary Unspecified essential hypertension Other hyperlipidemia Coronary artery disease involving [place] coronary artery of [place] heart without angina pectoris ([facility]) Frequent falls Functional gait abnormality CKD (chronic kidney disease) stage 4, GFR 15-29 ml/min ([facility]) Chronic kidney disease, Stage IV (severe) Primary hypertension ([facility])- Primary Unspecified essential hypertension Chronic obstructive pulmonary disease, unspecified COPD type ([facility]) Chronic kidney disease, stage 4 (severe) ([facility]) Coronary artery disease involving [place] coronary artery of [place] heart without angina pectoris ([facility]) Gastroesophageal reflux disease without esophagitis Esophageal reflux EDITH (generalized anxiety disorder) ([facility]) Generalized anxiety disorder Recurrent major depressive disorder, in full remission ([facility]) Mixed hyperlipidemia ([facility]) Mixed hyperlipidemia MCI (mild cognitive impairment) Mild cognitive impairment, so stated Other hyperlipidemia Recurrent major depression in partial remission (HCC) ([facility]) Major depressive disorder, recurrent episode, in partial or unspecified remission Neck pain- Primary Cervicalgia Primary hypertension ([facility]) Unspecified essential hypertension Chronic kidney disease, stage 4 (severe) ([facility]) EDITH (generalized anxiety disorder) ([facility]) Generalized anxiety disorder Functional gait abnormality MCI (mild cognitive impairment) Mild cognitive impairment, so stated Neck pain- Primary Cervicalgia documented in [facility] Diagnosis Traumatic complete tear of left rotator cuff, subsequent encounter- Primary Recurrent major depression in partial remission (HCC) ([facility]) Major depressive disorder, recurrent episode, in partial or unspecified remission Other hyperlipidemia EDITH (generalized anxiety disorder) ([facility]) Generalized anxiety disorder CKD (chronic kidney disease) stage 4, GFR 15-29 ml/min ([facility]) Chronic kidney disease, Stage IV (severe) Gastroesophageal reflux disease without esophagitis Esophageal reflux Coronary artery disease involving [place] coronary artery of [place] heart without angina pectoris ([facility]) Primary hypertension ([facility]) Unspecified essential hypertension Chronic obstructive pulmonary disease, unspecified COPD type ([facility]) Chronic obstructive pulmonary disease, unspecified COPD type ([facility])- Primary Coronary artery disease involving [place] coronary artery of [place] heart without angina pectoris ([facility]) CKD (chronic kidney disease) stage 4, GFR 15-29 ml/min ([facility]) Chronic kidney disease, Stage IV (severe) Gastroesophageal reflux disease without esophagitis Esophageal reflux Recurrent major depressive disorder, in full remission ([facility]) Other hyperlipidemia EDITH (generalized anxiety disorder) ([facility]) Generalized anxiety disorder Recurrent major depression in partial remission (HCC) ([facility]) Major depressive disorder, recurrent episode, in partial or unspecified remission Primary hypertension ([facility]) Unspecified essential hypertension Primary hypertension ([facility])- Primary Unspecified essential hypertension Other hyperlipidemia Coronary artery disease involving [place] coronary artery of [place] heart without angina pectoris ([facility]) Frequent falls Functional gait abnormality CKD (chronic kidney disease) stage 4, GFR 15-29 ml/min ([facility]) Chronic kidney disease, Stage IV (severe) Primary hypertension ([facility])- Primary Unspecified essential hypertension Chronic obstructive pulmonary disease, unspecified COPD type ([facility]) Chronic kidney disease, stage 4 (severe) ([facility]) Coronary artery disease involving [place] coronary artery of [place] heart without angina pectoris ([facility]) Gastroesophageal reflux disease without esophagitis Esophageal reflux EDITH (generalized anxiety disorder) ([facility]) Generalized anxiety disorder Recurrent major depressive disorder, in full remission ([facility]) Mixed hyperlipidemia ([facility]) Mixed hyperlipidemia MCI (mild cognitive impairment) Mild cognitive impairment, so stated Other hyperlipidemia Recurrent major depression in partial remission (HCC) ([facility]) Major depressive disorder, recurrent episode, in partial or unspecified remission Neck pain- Primary Cervicalgia Primary hypertension ([facility]) Unspecified essential hypertension Chronic kidney disease, stage 4 (severe) ([facility]) EDITH (generalized anxiety disorder) ([facility]) Generalized anxiety disorder Functional gait abnormality MCI (mild cognitive impairment) Mild cognitive impairment, so stated Cervical spondylosis- Primary Cervical spondylosis without myelopathy Neck pain Cervicalgia Primary hypertension ([facility]) Unspecified essential hypertension Chronic kidney disease, stage 4 (severe) ([facility]) EDITH (generalized anxiety disorder) ([facility]) Generalized anxiety disorder H/O: lung cancer Personal history of malignant neoplasm of bronchus and lung MCI (mild cognitive impairment) Mild cognitive impairment, so stated documented in [facility] encounter [facility]* Diagnosis Cervical spondylosis- Primary Cervical [...] kidney disease) stage 4, GFR 15-29 ml/min ([facility]) Chronic kidney disease, Stage IV (severe) Gastroesophageal reflux disease without esophagitis Esophageal reflux Coronary artery disease involving [place] coronary artery of [place] heart without angina pectoris Primary hypertension Unspecified essential hypertension Chronic obstructive pulmonary disease, unspecified COPD type ([facility]) Chronic obstructive pulmonary disease, unspecified COPD type ([facility])- Primary Coronary artery disease involving [place] coronary artery of [place] heart without angina pectoris CKD (chronic kidney disease) stage 4, GFR 15-29 ml/min ([facility]) Chronic kidney disease, Stage IV [...] hypertension Other hyperlipidemia Coronary artery disease involving [place] coronary artery of [place] heart without angina pectoris Frequent falls Functional gait abnormality CKD (chronic kidney disease) stage 4, GFR 15-29 ml/min ([facility]) Chronic kidney disease, Stage IV (severe) Primary hypertension- Primary Unspecified essential hypertension Chronic obstructive pulmonary disease, unspecified COPD type ([facility]) Chronic kidney disease, stage 4 (severe) ([facility]) Coronary artery disease involving [place] coronary artery of [place] heart without angina pectoris Gastroesophageal reflux disease [...] Unspecified essential hypertension Coronary artery disease involving [place] coronary artery of [place] heart without angina pectoris Chronic kidney disease, [...] COPD type (HCC) [facility] Diagnosis Cervical spondylosis- Primary Cervical spondylosis without myelopathy [facility] Diagnosis Dyspnea and respiratory abnormalities- Primary Other dyspnea and respiratory abnormality Centrilobular emphysema (HCC) Other emphysema Class 1 obesity due to excess calories with serious comorbidity and body mass index (BMI) of 32.0 to 32.9 in adult Sleep-disordered breathing Other sleep disturbances Coronary artery disease involving [place] coronary artery of sk[place] heart without angina pectoris- Primary Hx of [...] impairment, so stated [facility] Diagnosis Dyspnea and respiratory abnormalities- Primary Other dyspnea and respiratory abnormality Centrilobular emphysema (HCC) Other emphysema Class 1 obesity due to excess calories with serious comorbidity and body mass index (BMI) of 32.0 to 32.9 in adult Sleep-disordered breathing Other sleep disturbances Chronic heart failure with preserved ejection fraction (HCC)- Primary [facility] - [facility]orted* Type Description Date Medical History hypertension Medical History hypercholesterolemia Medical History lung cancer Medical History heart disease Medical History A flutter Medical History Esophageal reflux Medical History DEPRESSION AND ANXIETY Surgical History CABG Surgical History hernia Surgical History lobectomy: lung [place] [facility] [place] 2020 Hospitalization History see above [facility] Other History general Narrative - ReportedNortGuestCentric Systems Other History general Narrative - ReportedNoGuestCentric Systems Other InstructionsNot on filedocumented in this encounter [facility] (n[facility]ative)* Reason * Waiting for appt pulmonology, lung nodule, progressive SOB, hx. lung cancer Diagnosis 1 Pulmonary nodule (R9 1.1) Referral Organization [facility] Referring Provider First Name Cristo Referring Provider Last Name Gabriele Referring Provider [facility] Referred Organization [facility] Referred Provider Gonsalo Hawley Referred Address [address] [place] [id number] Referred Provider Specialty Pulmonary Di lindaes Referral Priority Routine General Notes Mattie Carballo 01:40:04 PM >referral received and sent p2p successful per log [facility] Other Reason for referral (narrative)* Outpatient Procedure (Routine) - Pending Review Specialty Diagnoses / Procedures Referred By Lam chacko Referred To [facility] Diagnoses Shortness of breath Procedures SPIROMETRY WITH DILATOR IF OBSTRUCTED BRNCDILAT RSPSE SPMTRY PRE&POST-BRNCDILAT ADMN Marisol Davis MD [address] [place] [address] Respiratory [facility] [place] [address] Referral ID Status Reason Start Date Expiration Date Visits Requested Visits Authorized [id number] Pending Review Auto-Generat ed Referral 02/09/2022 03/10/2023 1 1 [facility] for visit NarrativeRef by Dr. Suazo for pulmonology, lung nodule, progressive SOB[facility] Other Summary Purpose Family History No Family [...] July 6:23pm Hospital Course Note MR#: [id number] [facility] Pt. Name: Kel Castillo Admitted: 10/05/2019 [...] STEM W/[place] [address] [place] [address] Mr Imaging Referral ID Status Reason Start Date Expiration Date Visits Requested Visits Authorized [id number] Authorized Auto-Generat ed Referral 12/22/2021 01/21/2023 1 1 Specialty Diagnoses / Procedures Referred By Lam t Referred To Contact [facility] Diagnoses Cognitive impairment, mild, so stated Procedures MRI 3D POST PROCESSING 3D RENDERING W/INTERP&POSTPROC DIFF WORK STATION Alonzo Cabrera MD, [address] [place] [address] Mr Imaging Referral ID Status Reason Start Date Expiration Date Visits Requested Visits Authorized [id number] Pending Review Auto-Generat ed Referral 02/08/2022 03/10/2023 1 1 Referral ID Status Reason Start Date Expiration Date V isits Requested Visits Authorized [id number] Closed Auto-Generate d Referral 12/22/2021 01/21/2023 1 1 Specialty Diagnoses / Procedures Referred By Lam t Referred To Contact Psychology Diagnoses Recurrent major depression in partial remission (HCC) Procedures CONSULT TO PSYCHOLOGY OFFICE/OUTPATIENT NEW HIGH MDM 60-74 MINUTES bEony Kaufman DO [address] [place] [address] Referral ID Status Reason Start Date Expiration Date Visits Requested Visits Authorized [id number] Pending Review PCP Requested Referral 04/10/2022 04/10/2023 1 1 Specialty Diagnoses / Procedures Referred By Lam t Referred To Contact [facility] Diagnoses Abnormality of gait Procedures CONSULT TO PHYSICAL THERAPY PHYSICAL THERAPY EVALUATION HIGH COMPLEX 45 MINS Ebony Trent DO [address] [place] [address] [facility] [place] [address] Referral ID Status Reason Start Date Expiration Date Visits Requested Visits Authorized [id number] Pending Review Auto-Generat ed Referral 05/04/2024 05/04/2025 1 1 Specialty Diagnoses / Procedures Referred By Lam t Referred To Contact CT IMAGING Diagnoses Memory loss Procedures CT BRAIN WO IVCON CT HEAD/BRAIN W/O CONTRAST MATERIAL Ebony Trent DO [address] [place] [address] [facility] [place] [address] Referral ID Status Reason Start Date Expiration Date Visits Requested Visits Authorized [id number] Authorized Auto-Generat ed Referral 05/04/2024 06/03/2025 1 [...] TST EA ADDL 30 MIN Ebony Trent, [address] [place] [address] Referral ID Status Reason Start Date Expiration Date Visits Requested Visits Authorized [id number] Ref Not Required PCP Requested Referral 05/04/2024 05/04/2025 1 3 Referral ID Status Reason Start Date Expiration Date V isits Requested Visits Authorized [id number] Closed Auto-Generate d Referral 05/04/2024 06/03/2025 1 1 Chief Complaint and Reason for Visit Chief Complaint g47.30 Chief Complaint RENAL 6 MONTH F/U Reason for Visit Anemia CAD (coronary artery disease) of artery bypass graft Chronic kidney disease, stage 3b Hyperkalemia Hyperlipemia [id number] Chief Complaint Admit Date RENAL 6 MONTH [...] section and content) DATE CREATED AUTHOR 04/05/2018 [facility] DATE CREATED AUTHOR AUTHOR'S ORGANIZ ATION 01/06/2020 [facility] DATE CREATED AUTHOR AUTHOR'S ORGANIZ ATION 12/19/2022 [facility] DATE CREATED AUTHOR AUTHOR'S ORGANIZ ATION 04/22/2023 [facility] DATE CREATED AUTHOR AUTHOR'S ORGANIZ ATION 03/04/2024 [place] DATE CREATED AUTHOR AUTHOR'S ORGANIZ ATION 05/13/2024 [facility] DATE CREATED AUTHOR AUTHOR'S ORGANIZ ATION 10/13/2024 [facility] DATE CREATED AUTHOR AUTHOR'S ORGANIZ ATION 03/03/2025 [facility] DATE CREATED AUTHOR AUTHOR'S ORGANIZ ATION 04/07/2025 [facility] DATE CREATED AUTHOR AUTHOR'S ORGANIZ ATION 04/07/2025 [facility] DATE CREATED AUTHOR AUTHOR'S ORGANIZ ATION 04/23/2025 [facility] Source Comments (unrecognize d section and content) In the event this informatio n is protected by the Federal Confidentiality of Alcohol and Drug Abuse Patient Records regulations: The Federal rules restrict any use of the information to criminally investigate or prosecute any alcohol or drug abuse patient.[facility] the event this information is protected by the Federal Confidentiality of Alcohol and Drug Abuse Patient Records regulations: The Federal rules restrict any use of the information to criminally investigate or prosecute any alcohol or drug abuse patient.[facility] HospitalIn the event this information is protected by the Federal Confidentiality of Alcohol and Drug Abuse Patient Records regulations: The Federal rules restrict any use of the information to criminally investigate or prosecute any alcohol or drug abuse patient.[facility] the event this information is protected by the Federal Confidentiality of Alcohol and Drug Abuse Patient Records regulations: The Federal rules restrict any use of the information to criminally investigate or prosecute any alcohol or drug abuse patient.[facility] the event this information is protected by the Federal Confidentiality of Alcohol and Drug Abuse Patient Records regulations: The Federal rules restrict any use of the information to criminally investigate or prosecute any alcohol or drug abuse patient.[facility] HospitalIn the event this information is protected by the Federal Confidentiality of Alcohol and Drug Abuse Patient Records regulations: The Federal rules restrict any use of the information to criminally investigate or prosecute any alcohol or drug abuse patient.[facility] HospitalIn the event this information is protected by the Federal Confidentiality of Alcohol and Drug Abuse Patient Records regulations: The Federal rules restrict any use of the information to criminally investigate or prosecute any alcohol or drug abuse patient.[facility] HospitalIn the event this information is protected by the Federal Confidentiality of Alcohol and Drug Abuse Patient Records regulations: The Federal rules restrict any use of the information to criminally investigate or prosecute any alcohol or drug abuse patient.[facility] HospitalIn the event this information is protected by the Federal Confidentiality of Alcohol and Drug Abuse Patient Records regulations: The Federal rules restrict any use of the information to criminally investigate or prosecute any alcohol or drug abuse patient.[facility] HospitalIn the event this information is protected by the Federal Confidentiality of Alcohol and Drug Abuse Patient Records regulations: The Federal rules restrict any use of the information to criminally investigate or prosecute any alcohol or drug abuse patient.[facility] HospitalIn the event this information is protected by the Federal Confidentiality of Alcohol and Drug Abuse Patient Records regulations: The Federal rules restrict any use of the information to criminally investigate or prosecute any alcohol or drug abuse patient.[facility] Hospital[facility] the event this information is protected by the Federal Confidentiality of Alcohol and Drug Abuse Patient Records regulations: The Federal rules restrict any use of the information to criminally investigate or prosecute any alcohol or drug abuse patient.[facility] the event this information is protected by the Federal Confidentiality of Alcohol and Drug Abuse Patient Records regulations: The Federal rules restrict any use of the information to criminally investigate or prosecute any alcohol or drug abuse patient.[facility] the event this information is protected by the Federal Confidentiality of Alcohol and Drug Abuse Patient Records regulations: The Federal rules restrict any use of the information to criminally investigate or prosecute any alcohol or drug abuse patient.[facility] HospitalIn the event this information is protected by the Federal Confidentiality of Alcohol and Drug Abuse Patient Records regulations: The Federal rules restrict any use of the information to criminally investigate or prosecute any alcohol or drug abuse patient.[facility] HospitalIn the event this information is protected by the Federal Confidentiality of Alcohol and Drug Abuse Patient Records regulations: The Federal rules restrict any use of the information to criminally investigate or prosecute any alcohol or drug abuse patient.[facility] Reason for Visit (unrecogniz ed section and content) Reason Comments New Patient Memory loss Specialty Diagnoses / Procedures Referred By Contac t Referred To Contact MR IMAGING Diagnoses Cognitive impairment, mild, so stated 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) Depression, unspecified depression type Procedures MRI BRAIN WO IVCON MRI BRAIN BRAIN STEM W/[place] [address] [place] [address] Mr Imaging Referral ID Status Reason Start Date Expiration Date V isits Requested Visits Authorized [id number] Closed Auto-Generate d Referral 12/22/2021 01/21/2023 1 1 Reason Comments Spirometry Specialty Diagnoses / Procedures Referred By Contac t Referred To Contact [facility] Diagnoses Shortness of breath Procedures SPIROMETRY WITH DILATOR IF OBSTRUCTED BRNCDILAT RSPSE SPMTRY PRE&POST-BRNCDILAT Marisol Olivares MD [address] [place] [address] Respiratory [facility] [address] [place] [address] Referral ID Status Reason Start Date Expiration Date V isits Requested Visits Authorized [id number] Closed Auto-Generate d Referral 02/09/2022 03/10/2023 1 1 Reason Comments New Patient 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) Reason Comments 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 Manager - Other In response to order placed in [facility] Reason Comments Established Patient Reason Comments Follow-up MEDS/SHOULDER Reason Comments Established Patient Follow Up Specialty Diagnoses / Procedures Referred By Contac t Referred To Contact Neurology / NEUROLOGY Diagnoses Follow-up exam Follow up Procedures OFFICE/OUTPATIENT ESTABLISHED HIGH MDM 40 MIN EST NI PATIENT Self Ebony Trent DO [address] [place] [address] Referral ID Status Reason Start Date Expiration Date Visits Requested Visits Authorized [id number] Authorized Financial Clearance Not Required Patient Cleared - INN Insurance Found 05/01/2024 08/11/2024 [id number] [phone] Specialty Diagnoses / Procedures Referred By Contac t Referred To Contact CT IMAGING Diagnoses Memory loss Procedures CT BRAIN WO IVCON CT HEAD/BRAIN W/O CONTRAST MATERIAL Ebony Trent, DO [address] [place] [address] Ct Imaging [id number] Referral ID Status Reason Start Date Expiration Date V isits Requested Visits Authorized [id number] Closed Auto-Generate d Referral 05/04/2024 06/03/2025 1 [...] EA ADDL 30 MIN Ebony Trent, DO [address] [place] [address] Referral ID Status Reason Start Date Expiration Date Visits Requested Visits Authorized [id number] Authorized PCP Requested Referral 05/04/2024 05/04/2025 1 3 Reason Comments Hypertension Reason Comments Follow-up Reason Comments Neck Pain Reason Comments Hypertension Reason Comments New Patient CAD Reason Onset Date Comments Results 04/02/2025 Reason Comments 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 Manager - Other Care Teams (unrecognized sec tion and content) Stiff Neck Loader Relationship Specialty Start Date End Date [facility] [address] [place] [address] NI Referring Team Psychiatry 12/21/21 Stiff Neck Loader Relationship Specialty Start Date End Date [facility] [address] [place] [address] NI Referring Team Psychiatry 12/21/21 Stiff Neck Loader Relationship Specialty Start Date End Date [facility] [address] [place] [address] NI Referring Team Psychiatry 12/21/21 Stiff Neck Loader Relationship Specialty Start Date End Date [facility] [address] [place] [address] NI Referring Team Psychiatry 12/21/21 Stiff Neck Loader Relationship Specialty Start Date End [facility] [address] [place] [address] NI Referring Team Psychiatry 12/21/21 Stiff Neck Loader Relationship Specialty Start Date End Date [facility] [address] [place] [address] NI Referring Team Psychiatry 12/21/21 Stiff Neck Loader Relationship Specialty Start Date End Date [facility] smithThoms[facility] [address] [place] [address] NI Referring Team Psychiatry 12/21/21 Team Status: Inactive Member Role Status Dates Corona Monroe MD Attending Provider Active Daria Cardoza DO Primary Care Provider Active Team Status: Active Member Role Status Dates Daria Cardoza DO Primary Care Provider Active Stiff Neck Loader Relationship Specialty Start Date End Date GenesisFranky smitham [address] [place] [address] NI Referring Team Psychiatry 12/21/21 Stiff Neck Loader Relationship Specialty Start Date End Date Shaikh [...] March 31, 2024 End: March 31, 2024 Stiff Neck Loader Relationship Specialty Start Date End Date Thomas Hurtado MD [address] [place] [address] NI Referring Team Psychiatry 12/21/21 Stiff Neck Loader Relationship Specialty Start Date End Date Thomas Hurtado MD [address] [place] [address] NI Referring Team Psychiatry 12/21/21 Stiff Neck Loader Relationship Specialty Start Date End Date Shaikh Grimes MD [address] [place] [address] PCP - [employer] 10/11/23 Jose Beckford MD [address] [place] [address] PCP - General Family Medicine 06/09/24 Jayy Coronado NP [address] [place] [address] Nurse Practitioner Family Medicine 06/09/24 Stiff Neck Loader Relationship Specialty Start Date End Date Shaikh Grimes MD [address] [place] [address] PCP - [employer] 10/11/23 Jose Beckford MD [address] [place] [address] PCP - General Family Medicine 06/09/24 Jayy Coronado NP [address] [place] [address] Nurse Practitioner Family Medicine 06/09/24 Stiff Neck Loader Relationship Specialty Start Date End Date Shaikh Grimes MD [address] [place] [address] PCP - [employer] 10/11/23 Jose Beckford MD [address] [place] [address] PCP - General Family Medicine 06/09/24 Jayy Coronado NP [address] [place] [address] Nurse Practitioner Family Medicine 06/09/24 Vannessa Russell MA Family Medicine 06/17/24 06/18/24 Stiff Neck Loader Relationship Specialty Start Date End Date Shaikh Grimes MD [address] [place] [address] PCP - [employer] 10/11/23 Jose Beckford MD [address] [place] [address] PCP - General Family Medicine 06/09/24 Jayy Coronado, JACKHAMMER SPLITTER OPERATOR [address] [place] [address] Nurse Practitioner Family Medicine 06/09/24 Stiff Neck Loader Relationship Specialty Start Date End Date Shaikh Grimes MD [address] [place] [address] PCP - [employer] 10/11/23 Jose Beckford MD [address] [place] [address] PCP - General Family Medicine 06/09/24 Jayy Coronado NP [address] [place] [address] Nurse Practitioner Family Medicine 06/09/24 Stiff Neck Loader Relationship Specialty Start Date End Date Shaikh Grimes MD [address] [place] [address] PCP - General Internal Medicine 08/12/22 Shaikh Grimes MD [address] [place] [address] PCP - [employer] 10/11/23 Stiff Neck Loader Relationship Specialty Start Date End Date Thomas Hurtado MD [address] [facility] [place] [address] NI Referring Team Psychiatry 12/21/21 Stiff Neck Loader Relationship Specialty Start Date End Date Jose Beckford MD [address] [place] [address] PCP - General Family Medicine 06/09/24 Jayy Coronado NP [address] [place] [address] Nurse Practitioner Family Medicine 06/09/24 Stiff Neck Loader Relationship Specialty Start Date End Date Jose Beckford MD [address] [place] [address] PCP - General Family Medicine 06/09/24 Jayy Coronado NP [address] [place] [address] Nurse Practitioner Family Medicine 06/09/24 Stiff Neck Loader Relationship Specialty Start Date End Date Thomas Hurtado MD [address] [place] [address] NI Referring Team Psychiatry 12/21/21 Team Status: Inactive Member Role Status Dates NON STAFF Primary Care Provider Active Start: October 27, 2024 End: October 27, 2024 Lisseth Toscano MD Attending Provider Active Star t: October 27, 2024 End: October 27, 2024 Stiff Neck Loader Relationship Specialty Start Date End Date Jose Beckford MD [address] [place] [address] PCP - General Family Medicine 06/09/24 Jayy Coronado NP [address] [place] [address] Nurse Practitioner Family Medicine 06/09/24 Stiff Neck Loader Relationship Specialty Start Date End Date Jose Beckford MD [address] [place] [address] PCP - General Family Medicine 06/09/24 Jayy Coronado NP [address] [place] [address] Nurse Practitioner Family Medicine 06/09/24 Stiff Neck Loader Relationship Specialty Start Date End Date Jose Beckford MD [address] [place] [address] PCP - General Family Medicine 06/09/24 Jayy Coronado NP [address] [place] [address] Nurse Practitioner Family Medicine 06/09/24 Stiff Neck Loader Relationship Specialty Start Date End Date Jose Beckford MD [address] [place] [address] PCP - General Family Medicine 06/09/24 Jayy Coronado NP [address] [place] [address] Nurse Practitioner Family Medicine 06/09/24 Stiff Neck Loader Relationship Specialty Start Date End Date Jose Beckford MD [address] [place] [address] PCP - General Family Medicine 06/09/24 Jayy Coronado NP [address] [place] [address] Nurse Practitioner Family Medicine 06/09/24 Stiff Neck Loader Relationship Specialty Start Date End Date Jose Beckford MD [address] [place] [address] PCP - General Family Medicine 06/09/24 Jayy Coronado NP [address] [place] [address] Nurse Practitioner Family Medicine 06/09/24 Stiff Neck Loader Relationship Specialty Start Date End Date Jose Beckford MD [address] [place] [address] PCP - General Family Medicine 06/09/24 Jayy Coronado NP [address] [place] [address] Nurse Practitioner Family Medicine 06/09/24 Stiff Neck Loader Relationship Specialty Start Date End Date Jose Beckford MD [address] [place] [address] PCP - General Family Medicine 06/09/24 Jayy Coronado NP [address] [place] [address] Nurse Practitioner Family Medicine 06/09/24 Stiff Neck Loader Relationship Specialty Start Date End Date Jose Beckford MD [address] [place] [address] PCP - General Family Medicine 06/09/24 Jayy Coronado NP [address] [place] [address] Nurse Practitioner Family Medicine 06/09/24 Stiff Neck Loader Relationship Specialty Start Date End Date Jose Beckford MD [address] [place] [address] PCP - General Family Medicine 06/09/24 Jayy Coronado NP [address] [place] [address] Nurse Practitioner Family Medicine 06/09/24 Stiff Neck Loader Relationship Specialty Start Date End Date Jose Beckford MD [address] [place] [address] PCP - General Family Medicine 06/09/24 Jayy Coronado NP [address] [place] [address] Nurse Practitioner Family Medicine 06/09/24 Team Status: Inactive Member Role Status Dates NON STAFF Primary Care Provider Active Start: January 19, 2025 End: January 19, 2025 Lisseth Toscano MD Attending Provider Active Star t: January 19, 2025 End: January 19, 2025 Stiff Neck Loader Relationship Specialty Start Date End Date Susan Watson, TUGBOAT DISPATCHER-LABORER DRIVER [address] [place] [address] PCP - General Nurse Practitioner 01/11/25 Stiff Neck Loader Relationship Specialty Start Date End Date Jose Beckford MD [address] [place] [address] PCP - General Family Medicine 06/09/24 Jayy Coronado NP [address] [place] [address] Nurse Practitioner Family Medicine 06/09/24 Stiff Neck Loader Relationship Specialty Start Date End Date Jose Beckford MD [address] [place] [address] PCP - General Family Medicine 06/09/24 Jayy Coronado NP [address] [place] [address] Nurse Practitioner Family Medicine 06/09/24 Stiff Neck Loader Relationship Specialty Start Date End Date Jose Beckford MD [address] [place] [address] PCP - General Family Medicine 06/09/24 Jayy Coronado NP [address] [place] [address] Nurse Practitioner Family Medicine 06/09/24 Stiff Neck Loader Relationship Specialty Start Date End Date Susan Watson APRN-LABORER DRIVER PCP - General Nurse Practitioner 01/11/25 Stiff Neck Loader Relationship Specialty Start Date End Date Jose Beckford MD [address] [place] [address] PCP - General Family Medicine 06/09/24 Jayy Coronado NP [address] [place] [address] Nurse Practitioner Family Medicine 06/09/24 Stiff Neck Loader Relationship Specialty Start Date End Date Susan Watson, LABORER DRIVER [address] [place] [phone] PCP - General Family Medicine 04/01/25 Thomas Hurtado MD [address] [place] [address] NI Referring Team Psychiatry 12/21/21 Stiff Neck Loader Relationship Specialty Start Date End Date Susan Watson, LABORER DRIVER [address] [place] [address] PCP - General Family Medicine 04/01/25 Thomas Hurtado MD [address] [place] [address] NI Referring Team Psychiatry 12/21/21 Stiff Neck Loader Relationship Specialty Start Date End Date Susan Watson, LABORER DRIVER [address] [place] [address] PCP - General Family Medicine 04/01/25 Thomas Hurtado MD [address] [place] [address] NI Referring Team Psychiatry 12/21/21 Goals (unrecognized [...] BE BASED ON THE PRIMARY CLINICAL RECORDS. [email or web address] provides no warranty or guarantee of the accuracy or completeness of information in this document.
--- NOTE | 2025-04-27 07:48 | CA_ITS ---
Patient Name: KEL CASTILLO MR#: [id number] : 1955 Exam Date: 04/27/2025 Ordering Doctor: DR MARK TOLLIVER M.D. ECHOCARDIOGRAM REPORT PROCEDURE: CA ECHO LIMITED INDICATIONS: Heart failure with reduced ejection fraction, CABGx3, hypertension COMPARISON: None. DESCRIPTION: Limited ECHOCARDIOGRAM Real-time transthoracic echocardiography with 2D and M-mode performed. QUALITY: Technical quality was good. Limited echocardiogram per physician order. LEFT VENTRICLE: Normal chamber size. Normal left ventricular wall thickness. LV EF: Global left ventricular systolic function is mildly reduced; visually estimated ejection fraction is 40 to 45%. Diffuse hypokinesis. Calculated left ventricular ejection fraction is 48 to 52% (decreased from 56% on echo done 02/18/2025). LEFT ATRIUM: Severe dilatation. RIGHT ATRIUM: Moderate dilation. RIGHT VENTRICLE: Normal chamber size. TRICUSPID VALVE: Normal mobility and thickness. MITRAL VALVE: Normal mobility and thickness. There is no mitral annular calcification. AORTIC VALVE: Normal trileaflet appearance. No visible sclerosis. Normal leaflet mobility. AORTIC ROOT: Normal diameter and appearance. PULMONIC VALVE: Normal thickness and mobility. PERICARDIUM: No evidence of pericardial effusion. IVC: Collapses with inspiration. IVC is normal in size. CONCLUSION: 1. Global left ventricular systolic function is mildly reduced; visually estimated ejection fraction is 40 to 45% 2. Normal right ventricular size and systolic function 3. Biatrial dilatation A limited echocardiogram was performed Adult Echocardiography Procedure Report Left Ventricle LVEDD (3.7 - 5.6 cm): 4.86 cm LVESD (2.2 - 4.0 cm): 4.50 cm LVIVS thickness (0.6 - 1.2 cm): 1.13 cm LVPW thickness (0.5 - 1.0 cm): 1.00 cm LVOT Diameter 2.33 cm Left Ventricular Ejection Fraction: 51.94 % Left Atrium LA Volume Index (2D A2C): 50.11 ml/m2 Left Atrium Systolic Dimension: 5.04 cm Mitral Valve Right Ventricle Aorta AO Root Diam: 3.10 cm Aortic Valve Tricuspid Valve Pulmonic Valve Right Atrium Right Atrium Systolic Pressure: 55.47 ml, 55.47 ml Dictated by: Mark Tolliver M.D. on 04/27/2025 at 16:32 Approved by: Mark Tolliver M.D. on 04/27/2025 at 16:37
== END 2025-04-27 07:44 | disposition home or self-care (01) ==
LOC: CARD 07:43
PROVIDERS: PCP Nurse Practitioner; Visit Provider Internal Medicine Interventional Cardiology
DX: I50.21 Acute systolic (congestive) heart failure (principal)
CPT/HCPCS: 93308; 93356

== ENCOUNTER 2025-05-04 15:08 | Outpatient (OUT) | payer MEDICARE, SELFPAY ==
--- OUTSIDE RECORDS SUMMARY | 2025-04-29 11:00 | XMS_ITS | Encounter Summary ---
Author Organization [facility] Address [facility] [place] [address] Care Team Providers Care Archivist Economic History Name Role Phone Thomas Hurtado MD Unavailable Susan Watson CNP Primary Care Provider [phone] Source Comments In the event this information is protected by the Federal Confidentiality of Alcohol and Drug AbusePatient Records regulations: The Federal rules restrict any use of the information to criminally investigate or prosecute any alcohol or drug abuse patient.[facility] Reason for Visit * Reason Comments Established Patient Encounter Details Date Type Department Care Team (Late st Contact Info) Description 04/29/2025 11:00 AM EDT Office Visit Neurology [address] [place] [address] Ebony Henderson DO [address] [place] [address] Memory loss (Primary Dx); Tension headache Social History Tobacco Use Types Packs/Day Years Used Date Smoking Tobacco: Never Smokeless Tobacco: Former Chew Quit: 07/14/2022 Alcohol Use Standard Drinks/Week Comments Not Currently 0 (1 standard drink = 0.6 oz pur e alcohol) PHQ-2 Answer Date Recorded PHQ-2 score 5 04/15/2025 Area Deprivation Index Answer Date Brandon rded National Score (1-100), lower number is lower ri sk 87 05/16/2023 State Score (1-10), lower number is lower risk 8 05/16/2023 Data from: https://www.neighborhoodatlas.medicine.[facility]/. Last address used for calculation [address] 05/16/2023 Sex and Gender Information Value Date Recorded Sex Assigned at Not on file Legal Sex Male 11:57 AM EDT Gender Identity Not on file Sexual Orientation Not on file documented as of this encounter Last Filed Vital Signs Vital Sign Reading Time Taken Comments Blood Pressure 107/62 04/29/2025 11:06 AM EDT Pulse 60 04/29/2025 11:06 AM EDT Temperature - - Respiratory Rate - - Oxygen Saturation - - Inhaled Oxygen Concentration - - Weight 72.6 kg (160 lb) 04/29/2025 11:06 AM EDT per patient Height - - Body Mass Index 25.82 04/01/2025 2:14 PM EDT documented in this encounter Patient Instructions * Patient Instructions* Ebony Henderson DO - 04/29/2025 11:38 AM EDT The memory is stable and headaches have resolved. Follow-up in December after maternity leave or as needed. Call us if you decide on a [facility] neurosurgery referral. documented in this encounter Progress Notes * Ebony Henderson DO - 04/29/2025 11:02 AM EDT Images from the original note were not included. [facility] General Neurology Follow up/ Established patient visit Individuals who were included in, or assisted with the encounter were: Samir Garcia Ebony Black DO Chief Complaint/Issues: Samir Garcia is a 70 year old male seen in the [facility] for: Memory loss Most Recent Neurological Assessment and Plan: Last Filed Values Date of Most Recent Assessment and Plan 10/12/24 Specialty General Neurology Assessment Mr. Jaramillo, is a 69 year old man with untreated sleep apnea here for follow-up of memory loss. This was worse on repeat neuropsych testing, dementia range but no clear pattern for type. Also sleep apnea is contributing factor. Also reports headaches, may be a component of tension NESBITT and rebound NESBITT from Tylenol overuse. Plan Speech and physical therapy Told to let me know if neck PT does not help the headaches. Told to wean Tylenol. PT also for balance Follow-up in 6 months HPI/Interval History: Here for follow-up, last seen in October. Headaches are improved. He notes his memory is better somewhat. Gets foggier in depression states. Mood got worse off olanzapine, had to go back on it. He still has not been able to find a sleep apnea mask that he likes. Memory is not impacting daily activities. He may forget who is great grandaughter is. He may mix up who his daughter is. He fell two weeks ago, scraped up his knee. Gets pain from newly diagnosed peripheral vascular disease. He can get dizzy spells while walking, calls to the right. He drinks five bottles daily, increased from 5 fles. He gets lightheaded occasionally. He was having neck pain, went to pain management, injection did not work, MRI was then done. General Examination: There were no vitals taken [...] Deep tendon reflexes graded by [facility] Gait No ataxia Assessment & Plan 04/29/2025 - General Neurology, Ebony Black, DO ASSESSMENT Mr. Garcia is a 70 year old man with memory issues and tension headache which have all improved. PLAN Follow-up in December when I am back from maternity leave, or a needed No diagnosis found. No follow-ups on file. Data Review Objective Current Outpatient Medications Medication Sig furosemide (LASIX) 20 mg tablet Take 1 tablet by mouth every morning. empagliflozin (JARDIANCE) 10 mg tablet Take 1 tablet by mouth daily with breakfast. OLANZapine (ZYPREXA) 5 mg tablet Take 5 mg by mouth daily at bedtime. traZODone (DESYREL) 100 mg tablet Take 100 [...] 1/2 TABLETS BY MOUTH EVERY DAY omega 5-dkg-yyn-fish oil (FISH OIL) 100-160-1,000 mg cap Take by mouth. No current facility-administered medications for this visit. ACTIVE PROBLEM LIST Dyspnea and Respiratory Abnormalities Recurrent Major Depression in Partial Remission Mci (Mild Cognitive Impairment) PAST MEDICAL HISTORY Diagnosis Date CAD (coronary artery disease) PAD (peripheral artery disease) No past surgical history on file. SOCIAL HISTORY[1] No family history on file. Review of Systems All other systems reviewed and are negative. Subjective Patient-Entered Data: 04/29/25 - GENERAL NEUROLOGY SCORES 10/12/2024 04/15/2025 04/22/2025 PROMIS 10 Health, in general Fair Poor Poor Quality of life, in general Fair Fair Fair Physical health, in general Poor Poor Poor Mental health, in general Poor Fair Fair Social activities satisfaction Poor Poor Fair Performing ADL's A little A little A little Social role satisfaction Poor Poor Fair Pain, on average 8 9 8 Fatigue, on average Severe Very severe Very severe Emotional problems Sometimes Sometimes Often PHYSICAL Score 26.7 (Poor) 23.5 (Poor) 23.5 (Poor) MENTAL Score 31.3 (Fair) 33.8 (Fair) 33.8 (Fair) 10/12/2024 04/15/2025 04/15/2025 Depression Screening PHQ-2 Score 2 5 PHQ-9 Score 11 EDITH-2 Total Score 5 EDITH-7 Total Score 13 12/22/2021 08/08/2022 10/11/2024 SLEEP APNEA SCORE Probability [...] which included preparing to see the patient, [id number] patient care, completing clinical documentation, obtaining and/or reviewing separately obtained history, performing a medically appropriate examination, and counseling and educating the patient/family/caregiver. Ebony Black DO 04/22/2025 PROMIS Global Health Physical Health Summary Physical health: Poor Everyday physical activity, ability: A little Fatigue: Very severe Pain level: 8 General health: Poor Social activities/roles, ability: Fair Physical Health T-Score 23.5 (Poor) Physical Health Percentile 0 PROMIS Global Health Mental Health Summary Quality of life: Fair Mental health (mood,thinking): Fair Social satisfaction: Fair Emotional problems (anxious,depressed): Often Mental Health T-Score 33.8 (Fair) Mental Health Percentile 5 PHQ-9 Score: (Moderately Severe Depression) PHQ-9 Self-Harm: EDITH-7 Score: (Moderate Anxiety) NEURO-QOL Cognitive Function T-Score 38(Moderate Dysfunction) PROMIS Physical Function T-Score 33(Moderate Dysfunction) PROMIS Physical Function Percentile 4 PROMIS Pain Interference T-Score 72(Severe) PROMIS Pain Interference Percentile 1 Percentiles provide an indication of how a patient's score ranks in relation to the [place] general population. > 31st percentile is within normal limits or better *< 31st percentile is at least SD worse than population, which may be clinically relevant < 16th percentile is at least 1 SD worse than population and warrants attention [1] Social History Tobacco Use Smoking status: Never Smokeless tobacco: Former Types: Chew Quit date: 07/14/2022 Substance Use Topics Alcohol use: Not Currently Drug use: Never * China Childers MA - 04/29/2025 11:00 AM EDT 04/22/2025 PROMIS Global Health Physical Health Summary Physical health: Poor Everyday physical activity, ability: A little Fatigue: Very severe Pain level: 8 General health: Poor Social activities/roles, ability: Fair Physical Health T-Score 23.5 (Poor) Physical Health Percentile 0 PROMIS Global Health Mental Health Summary Quality of life: Fair Mental health (mood,thinking): Fair Social satisfaction: Fair Emotional problems (anxious,depressed): Often Mental Health T-Score 33.8 (Fair) Mental Health Percentile 5 PHQ-9 Score: (Moderately Severe Depression) PHQ-9 Self-Harm: EDITH-7 Score: (Moderate Anxiety) NEURO-QOL Cognitive Function T-Score 38(Moderate Dysfunction) PROMIS Physical Function T-Score 33(Moderate Dysfunction) PROMIS Physical Function Percentile 4 PROMIS Pain Interference T-Score 72(Severe) PROMIS Pain Interference Percentile 1 Percentiles provide an indication of how a patient's score ranks in relation to the [place] general population. > 31st percentile is within normal limits or better *< 31st percentile is at least SD worse than population, which may be clinically relevant < 16th percentile is at least 1 SD worse than population and warrants attention documented in this encounter Plan of Treatment Not on file documented as of this encounter Goals Goal Patient Goal Type Associated Problems Recent Progress Patient-Stated? Author Blood Pressure < 130/80 Blood Pressure 107/62( 025 11:06 AM EDT) Michael Gomez MD documented as of this encounter Visit Diagnoses Diagnosis Memory loss- Primary Tension headache documented in this encounter Care Teams Archivist Economic History Relationship Specialty Start Date End Date Susan Watson, ACADEMIC SUPPORT ASSISTANT [address] [place] [address] PCP - General Family Medicine 04/01/25 Thomas Hurtado MD [address] [place] [address] Referring Team Psychiatry 12/21/21 documented as of this encounter
--- OUTSIDE RECORDS SUMMARY | 2025-05-04 15:12 | XMS_ITS | Clinical Summary ---
Author Organization [facility] Address [address] [place] [address] Care Team Providers Care Guest Relations Executive Name Role Phone Jose Beckford MD Primary Care Provider [phone] Cherelle Coronado NP Unavailable [phone] Allergies No known active allergies Medications albuterol HFA 90 mcg/act inhaler Inhale 2 puffs every 4 (four) hours if needed for wheezing Active nitroglycerin (Nitrostat) 0.4 MG SL tabletIndications:C oronary artery disease involving lumbee coronary artery of lumbee heart without angina pectoris Place 1 tablet [...] MG EC tabletIndications:C oronary artery disease involving lumbee coronary artery of lumbee heart without angina pectoris Take 1 tablet [...] 75 MG tabletIndications:C oronary artery disease involving lumbee coronary artery of lumbee heart without angina pectoris Take 1 tablet [...] kidney disease, stage 4 (severe) ([facility]) Take 1 tablet (325 mg) by [...] tabletIndications:P rimary hypertension,Celeste ry artery disease involving lumbee coronary artery of lumbee heart without angina pectoris Take 1 tablet (60 mg) by mouth Daily Do not crush or chew. 90 tablet 05/30/20 25 Active lisinopril 10 MG tabletIndications:P rimary hypertension Take 1 tablet (10 mg) by mouth Daily 90 tablet 1 5 05/30/20 Active metoprolol tartrate (Lopressor) 50 MG tabletIndications:P rimary hypertension,Celeste ry artery disease involving lumbee coronary artery of lumbee heart without angina pectoris Take 1 tablet [...] healing 09/19/2023 Coronary artery disease invo lving lumbee coronary artery of lumbee heart without angina pectoris 09/19/2023 Assessment & Plan (03/01/2025 7:08 AM EDT): Established with [facility] Cardiology Current meds: asa, amlodipine, statin, plavix, imdur, raulito, b kelsy, and prn nitro Assessment & Plan (11/19/2024 7:00 AM EDT): Established with [facility] Cardiology Current meds: asa, amlodipine, statin, plavix, imdur, raulito, b kelsy, and prn nitro Assessment & Plan (10/08/2024 5:49 PM EST): Current meds: plavix, amlodipine, statin, b kelsy, nitroglycerin prn No acute symptoms, cont with [facility] Cardiology Assessment & Plan (03/11/2024 2:27 PM EDT): S/p CABG. On ASA, BB, Imdur, plavix, statin Denies CP, SOB, palpitations. Following [facility] cardiology. Assessment & Plan (09/19/2023 5:32 PM EST): S/p CABG. On ASA, BB, Imdur, plavix, statin Denies CP, SOB, palpitations. Following [facility] cardiology. Mixed hyperlipidemia 09/19/2023 Assessment & [...] buspar, sertraline Pt's daughter is a pysch RANGE MECHANIC, I have given daughter present today options [...] RECURRENT MAJOR DEPRESSION IN PARTIAL REMISSION (HCC) ([facility]) WRITTEN ON 09/19/2023 5:35 PM BY [...] 1:40 PM EDT Office Visit [facility] [address] [place] [address] Susan Watson NP Cervical spondylosis (Primary Dx); Chronic diastolic heart failure (HCC); Primary hypertension ; Coronary artery disease involving lumbee coronary artery of lumbee heart without angina pectoris ; Chronic kidney disease, stage 4 (severe) (HCC); Pulmonary hypertension (HCC); EDITH (generalized anxiety disorder) ; Other hyperlipidemia ; Neck pain; Recurrent major depression in partial remission ; Gastroesophageal reflux disease without esophagitis; Chronic obstructive pulmonary disease, unspecified COPD type (HCC) 03/01/2025 Bamboo flowsheet [facility] [address] [place] [address] Susan Watson NP 02/28/2025 Travel 02/24/2025 [facility] [address] [place] [address] Susan Watson NP 02/19/2025 Clinisync Result Encounter [...] often do you attend chur ch or yazidism services? Never 02/28/2025 Do you belong to [...] Recorded Patient Health Questionnaire-2 Score 0 03/11/2024 [facility] [place] [facility] - Occupational Stress [...] place to sleep or slept in a longterm (including now)? No 07/22/2023 Housing Stability Vital Sign Answer Jassi e Recorded In the last 12 months, was t here a time when you were not able to pay the mortgage or rent on time? No 02/28/2025 In the past 12 months, how m any times have you moved where you were living? 0 02/28/2025 At any time in the past 12 m [facility], were you homeless or living in a longterm (including now)? No 02/28/2025 Sex and Gender [...] EDT Specimen Type: BLOOD SPECIMEN Ordering Facility: [facility] Address: [address] [place] [address] Original Ordering Provider: BILL WAGNER Generic External Data Provider [facility] F inal Result Performing Organization Address [facility] Co de Phone Number [facility] [address] [place] [phone] * (ABNORMAL) [facility] CREATININE (03/11/2025 9:12 AM EDT) Pathologist [facility] CREATININE 2.07(H) 0.70 - 1.30 mg/dL [facility] EGFR-AF PERUVIAN 39(L) >=60 mL/min/1.7 3m 2 [facility] EGFR-NON AF PERUVIAN 32(L) >=60 mL/min/1.7 3m 2 [facility] 03/11/2025 9:12 AM EDT 03/11/2025 9:13 AM EDT Narrative [facility] - 03/11/2025 9:27 AM EDT Generic External Data Provider [facility] F inal Result Performing Organization Address City/[facility]/ZIP Co de Phone Number [facility] * CA ECHO DOPPLER COMPLETE (02/19/2025 6:22 PM EDT) Anatomical Region Laterality Modality Other 02/19/2025 6:22 PM EDT Narrative 02/19/2025 6:23 PM EDT The [address] [address] Cardiology Report Signed Patient: KEL CASTILLO Jr. MR#: [id number] : 1955 Acct:[id number] Age/Sex: 69 / M ADM Date: 02/18/25 Loc: CARD Attending Dr: Sarah Padilla M.D. Ordering Physician: Sarah Padilla M.D. Date of Service: 02/18/25 Procedure(s): CA echo doppler complete Accession Number(s): [id number] cc: Susan Watson NP; Sarah Padilla M.D. Patient Name: KEL CASTILLO MR#: [id number] : 1955 Exam Date: 02/18/2025 Ordering Doctor: [...] Area (VTI): 2.12 cm2, 2.12 cm2 Deceleration [place]: Pressure Half-Time: Peak Velocity(Antegrade Flow): 1.47 m/s [...] M.D. Signed By: 02/19/251822 DD/ 21 TD/TT: Professional Bass Fisherman: Procedure Note Radiology, Radiologist, - 02/19/2025 [place] [address] Cardiology Report Signed Patient: KEL CASTILLO Jr.MR#: [id number] : 1955cct:[id number] Age/Sex: 69 / MADM Date: 02/18/25 Loc: CARD Attending Dr: Sarah Padilla M.D. Ordering Physician: Sarah Padilla M.D. Date of Service: 02/18/25 Procedure(s): CA echo doppler complete Accession Number(s): [id number] cc: Susan Watson NP; Sarah Padilla M.D. Patient Name: KEL CASTILLO MR#: [id number] : 1955 Exam Date: 02/18/2025 Ordering Doctor: [...] Area (VTI): 2.12 cm2, 2.12 cm2 Deceleration [place]: Pressure Half-Time: Peak Velocity(Antegrade Flow): 1.47 m/s [...] Cerrato M.D. Signed By:02/19/251822 DD/ 21 TD/TT: Professional Bass Fisherman: us Generic External Data Provider [facility] IMAGING Final Result * SEGMENTAL BLOOD PRESSURE (02/18/2025 8:41 AM EDT) Anatomical Region Laterality Modality Radiographic Devika ging 02/18/2025 8:41 AM EDT Narrative 02/23/2025 12:52 [place] [address] Cardiology Report Signed Patient: KEL CASTILLO Jr. MR#: [id number] : 1955 Acct:[id number] Age/Sex: 69 / M ADM Date: 02/18/25 Loc: CARD Attending Dr: Sarah Padilla M.D. Ordering Physician: Sarah Padilla M.D. Date of Service: 02/18/25 Procedure(s): CA segmental UE or LE LEENA Accession Number(s): [id number] cc: Susan Watson RANGE MECHANIC; Sarah Padilla M.D. The [facility] Test Date: 2025-02-18 Pat Name: KEL CASTILLO Department: Room: - Gender: Male Any Commodity Sales Deliverer: : 1955 Requested By: SARAH PADILLA Order Number: [id number] Reading MD: SARAH PADILLA Interpretive Statements Bilateral, moderately reduced ankle-brachial indices. 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 Recommend further imaging with CT or invasive angiography. Electronically Signed On 02-23-2025 12:52:03 EDT by SARAH PADILLA Dictated By: Sarah Padilla M.D. Signed By: 02/23/25 1252 02/23/25 1252 DD/ 0841 TD/TT: Professional Bass Fisherman: Procedure Note Radiology, Radiologist, - 02/23/2025 [place] [address] Cardiology Report Signed Patient: KEL CASTILLO Jr.MR#: [id number] : 1955cct:[id number] Age/Sex: 69 / MADM Date: 02/18/25 Loc: CARD Attending Dr: Sarah Padilla M.D. Ordering Physician: Sarah Padilla M.D. Date of Service: 02/18/25 Procedure(s): CA segmental UE or LE LEENA Accession Number(s): [id number] cc: Susan Watson RANGE MECHANIC; Sarah Padilla M.D. The [facility] Test Date: 2025-02-18 Pat Name: KEL CASTILLO Department: Room: - Gender: Male Any Commodity Sales Deliverer: : 1955 Requested By: SARAH PADILLA Order Number: [id number] Reading MD: SARAH PADILLA Interpretive Statements Bilateral, moderately reduced ankle-brachial indices. 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 Recommend further imaging with CT or invasive angiography. Electronically Signed On 02-23-2025 12:52:03 EDT by SARAH PADILLA Dictated By: Sarah Padilla M.D. Signed By:02/23/25 1252 02/23/25 1252 DD/ 0841 TD/TT: Professional Bass Fisherman: Generic External Data Provider IMG XR PROCEDURES Final Result * Colonoscopy (06/21/2021 12:00 PM EST) Anatomical Region Laterality Modality Endoscopy 06/21/2021 12:0 0 PM EST Narrative 06/21/2021 12:00 PM EST PERFORMED AT [facility] LOCATION:[id number] Procedure Note CONVERSION, GENERIC - 12/26/2022 PERFORMED AT [facility] LOCATION:[id number] Pop Borrego DO ENDOSCOPY PROCEDURE ORDERABLES Final Result from Last 3 Months or Most Recently Relevant to Health Maintenance Insurance [employer] Care Teams Guest Relations Executive Relationship Specialty Start Date End Date Jose Beckford MD PCP - General Family Medicine 06/09/24 Cherelle Coronado NP Nurse Practitioner Family Medicine 06/09/24
--- OUTSIDE RECORDS SUMMARY | 2025-05-04 15:12 | XMS_ITS | Encounter Summary ---
Author Organization [facility] Address [address] [place] [address] Care Team Providers Care Hide Examiner Name Role Phone Shaikh ION Grimes Primary Care Provider [phone] Shaikh ION Grimes Unavailable [phone] Jose Beckford MD Primary Care Provider [phone] Cherelle Coronado NP Unavailable [phone] Vannessa Russell MA Unavailable [phone] Reason for Visit * Reason Comments Med Refill Encounter Details Date Type Department Care Team (Late st Contact Info) Description 03/14/2024 Refill [facility] [address] [place] [address] Shaikh Grimes MD [address] [place] [address] EDITH (generalized anxiety disorder) ; Recurrent major [...] often do you attend chur ch or hoahaoism services? Never 07/22/2023 Do you belong to [...] Recorded Patient Health Questionnaire-2 Score 0 03/11/2024 [facility] [place] of Occupat ional Health - Occupational Stress [...] remission documented in this encounter Care Teams Hide Examiner Relationship Specialty Start Date End Date Shaikh Grimes MD [address] [place] [address] PCP - General Internal Medicine 08/12/22 06/08/24 Shaikh Grimes MD [address] [place] [id number] PCP - [employer] 10/11/23 08/11/24 Jose Beckford MD [address] [place] [id number] PCP - General Family Medicine 06/09/24 Cherelle Coronado NP [address] [place] [address] Nurse Practitioner Family Medicine 06/09/24 Vannessa Russell MA [address] [place] [address] Family Medicine 06/17/24 06/18/24 documented as of this encounter
--- OUTSIDE RECORDS SUMMARY | 2025-05-04 15:12 | XMS_ITS | Encounter Summary ---
Author Organization [facility] Address [address] [place] [address] Care Team Providers Care Personal Lines Sales Rep Name Role Phone Jose Beckford MD Primary Care Provider [phone] Cherelle Coronado COMMAND CENTER OFFICER Unavailable [phone] Encounter Details Date Type Department Care Team ([facility] st Contact Info) Description 01/12/2025 External Result Encounter [facility] [address] [facility] [place] [address] Susan Watson NP [address] [place] [address] Social History Tobacco Use Types Packs/Day Years [...] often do you attend chur ch or religion services? Never 07/22/2023 Do you belong to any clubs o r organizations such as denominational groups, unions, fraternal or athletic groups, or [...] Recorded Patient Health Questionnaire-2 Score 0 03/11/2024 [facility] Questionnaire Answer Date [...] AM EDT THIS EXAM WAS PERFORMED AT [facility] XR SPINE CERVICAL 3 VWS OR LESS [...] - 01/12/2025 [facility] SPINE CERVICAL 3 VWS OR [...] MD on 01/12/2025 12:57 AM Susan Watson COMMAND CENTER OFFICER IMG XR PROCEDURES Final Result documented in this encounter Visit Diagnoses Not on filedocumented in this encounter Care Teams Personal Lines Sales Rep Relationship Specialty Start Date End Date Jose Beckford MD PCP - General Family Medicine 06/09/24 Cherelle Coronado NP Nurse Practitioner Family Medicine 06/09/24 documented as of this encounter
--- OUTSIDE RECORDS SUMMARY | 2025-05-04 15:12 | XMS_ITS | Encounter Summary ---
Author Organization [facility] Address [address] [place] [address] Care Team Providers Care Hot Repairman Name Role Phone Shaikh ION Grimes Primary Care Provider [phone] Shaikh ION Grimes Unavailable [phone] Jose Beckford MD Primary Care Provider [phone] Cherelle Coronado NP Unavailable [phone] Vannessa Rusesll MA Unavailable [phone] Reason for Visit * Reason Comments Med Refill Encounter Details Date Type Department Care Team (Late st Contact Info) Description 03/22/2024 Refill [facility] [place] [facility] [address] [place] [address] Shaikh Grimes MD [address] [place] [address] Recurrent major depression in partial remission Social [...] any clubs o r organizations such as rastafari groups, unions, fraternal or athletic groups, or [...] Recorded Patient Health Questionnaire-2 Score 0 03/11/2024 [facility] - Occupational Stress Questionnaire Answer Date [...] place to sleep or slept in a fdc (including now)? No 07/22/2023 Sex and Gender [...] remission documented in this encounter Care Teams Hot Repairman Relationship Specialty Start Date End Date Shaikh Grimes MD [address] [place] [address] PCP - General Internal Medicine 08/12/22 06/08/24 Shaikh Grimes MD [address] [place] [address] PCP - Aet[employer] 10/11/23 08/11/24 Jose Beckford MD [address] [place] [address] PCP - General Family Medicine 06/09/24 Cherelle Coronado NP [address] [place] [address] Nurse Practitioner Family Medicine 06/09/24 Vannessa Russell, MINESH [address] [place] [address] Family Medicine 06/17/24 06/18/24 documented as of this encounter
--- OUTSIDE RECORDS SUMMARY | 2025-05-04 15:12 | XMS_ITS | Clinical Summary ---
Author Organization [facility] Address [address] [place] [address] Phone Care Team Providers Care Sharepoint Engineer Name Role Phone Unavailable Primary Care Provider [...]
--- OUTSIDE RECORDS SUMMARY | 2025-05-04 15:12 | XMS_ITS | Encounter Summary ---
Author Organization [facility] Address [address] [place] [address] Care Team Providers Care Computer Lab Para Professional Name Role Phone Shaikh ION Grimes Primary Care Provider [phone] Shaikh ION Grimes Unavailable [phone] Jose Beckford MD Primary Care Provider [phone] Cherelle Coronado NP Unavailable Vannessa Russell MA Unavailable [phone] Encounter Details Date Type Department Care Team (Late st Contact Info) Description 03/11/2024 [facility] [address] [place] [address] Shaikh Grimes MD [address] [place] [address] Social History Tobacco Use Types Packs/Day Years [...] How often do you attend chur or rastafarian services? Never 07/22/2023 Do you belong to any clubs o r organizations such as temple groups, unions, fraternal or athletic groups, or [...] Recorded Patient Health Questionnaire-2 Score 0 03/11/2024 [facility] Occupat ional Health - [...] on filedocumented in this encounter Care Teams Computer Lab Para Professional Relationship Specialty Start Date End Date Shaikh Grimes MD [address] [place] [address] PCP - General Internal Medicine 08/12/22 06/08/24 Shaikh Grimes MD [address] [place] [address] PCP - [employer]et[employer] 10/11/23 08/11/24 Jose Beckford MD [address] [place] [address] PCP - General Family Medicine 06/09/24 Cherelle Coronado NP [address] [place] [address] Nurse Practitioner Family Medicine 06/09/24 Vannessa Russell MA [address] [place] [address] Family Medicine 06/17/24 06/18/24 documented as of this encounter
--- OUTSIDE RECORDS SUMMARY | 2025-05-04 15:12 | XMS_ITS | Patient Health Record ---
Author Organization [facility] Address [address] [place] [address] Support Name Relationship Address Phone LISETH GOLDSTEIN Emergency Contact [address] [place], [place] [address] KEL CASTILLO Guarantor Unknown [phone] Allergies No Known Allergies Reason For Referral No Information Social History Tobacco Use: Social History Observation Description Date Details (start date - stop date) Never Smoker NA - NA Smoking History Question Answer Notes Smoking Status NonSmoker Problems Problem Type SNOMED Code ICD Code Onset Dates Problem Status W/U Status Risk Notes Problem 390909538 Other nondisplaced fracture of upper end of left humerus, subsequent encounter for fracture with routine healing (S42.295D) Active confirmed Problem 234844175 Closed nondisplaced fracture of greater tuberosity of left humerus, initial encounter (S42.255A) Active confirmed Problem 577554490 Closed nondisplaced fracture of greater tuberosity of left humerus with routine healing (S42.255D) Active confirmed Problem [id number] Traumatic complete tear of left rotator cuff, initial encounter (S46.012A) Active confirmed Plan Of Treatment Pending Test Test Name Order Date MRI : Shoulder W/O Contrast Left - 03623 08/26/2023 DME - Arm Sling OTS 07/15/2023 Insurance Providers Payer Name Payer Address Payer Phone Subscriber Number Group Number Insured Name Patient Relationship to Insured Coverage Start Date Coverage End Date [facility] [address] [place] [address] [id number] KEL CASTILLO Self - patient is the insured [place] [address] [id number] KEL CASTILLO Self - patient is the insured Medical (General) History Medical History History ICD Code Asthma/COPD Lung Disease Lung cancer Heart problems: High Blood Pressure Depression Mental Illness: Anxiety Kidney trouble Sleep apnea CPAP Machine: Yes Surgical History Surgery Date(Month/Year) lung-right lower lobe 1996 Triple bypass 2006
--- OUTSIDE RECORDS SUMMARY | 2025-05-04 15:12 | XMS_ITS | Encounter Summary ---
Author Organization [facility] Address [address] [place] [address] Care Team Providers Care Java Software Architect Name Role Phone Shaikh ION Grimes Primary Care Provider [phone] Shaikh ION Grimes Unavailable [phone] Jose Beckford MD Primary Care Provider [phone] Cherelle Coronado NP Unavailable [phone] Vannessa Russell MA Unavailable [phone] Encounter Details Date Type Department Care [...] often do you attend chur ch or moravian services? Never 07/22/2023 Do you belong to any clubs o r organizations such as buddhism groups, unions, fraternal or athletic groups, or [...] PM EST Narrative 09/05/2023 4:18 [place] [address] Magnetic Resonance Report Signed Patient: KEL CASTILLO Jr. MR#: [id number] : 1955 Acct:[id number] Age/Sex: 68 / M ADM Date: 09/05/23 Loc: MRI Attending Dr: Carlyle Zhang M.D. Ordering Physician: Carlyle Zhang M.D. Date of Service: 09/05/23 Procedure(s): MR shoulder LT wo con Accession Number(s): [id number] cc: Carlyle Zhang M.D.; Shaikh Krish Grimes [place] [id number] Patient Name: KEL CASTILLO MRN: [id number] date: 1955 Sex: M Assigned Patient Location: MRI Current Patient Location: MRI Accession/Order Number: [id number] Exam Date: 09/05/2023 14:55 Report Date: 09/05/2023 [...] Signed By: 09/05/23 1618 DD/ 14 TD/TT: Mat Packer: Procedure Note Radiology, Radiologist, - 09/05/2023 [place] [address] Magnetic Resonance Report Signed Patient: KEL CASTILLO Jr.MR#: [id number] : 1955cct:[id number] Age/Sex: 68 / MADM Date: 09/05/23 Loc: MRI Attending Dr: Carlyle Zhang M.D. Ordering Physician: Carlyle Zhang M.D. Date of Service: 09/05/23 Procedure(s): MR shoulder LT wo con Accession Number(s): [id number] cc: Carlyle Zhang M.D.; Shaikh Krish Grimes [place] [address] Patient Name: KEL CASTILLO MRN: [id number] date: 1955 Sex: M Assigned Patient Location: MRI Current Patient Location: MRI Accession/Order Number: [id number] Exam Date: 09/05/2023 14:55 Report Date: 09/05/2023 [...] M.D. Signed By:09/05/23 1618 DD/ 1615 TD/TT: Mat Packer: us Generic External Data Provider IMG XR PROCEDURES Final Result documented in this encounter Visit Diagnoses Not on filedocumented in this encounter Care Teams Java Software Architect Relationship Specialty Start Date End Date Shaikh Grimes MD [address] [place] [address] PCP - General Internal Medicine 08/12/22 06/08/24 Shaikh Grimes MD [address] [place] [address] PCP - Aet[employer] 10/11/23 08/11/24 Jose Beckford MD [address] [place] [address] PCP - General Family Medicine 06/09/24 Cherelle Coronado NP [address] [place] [address] Nurse Practitioner Family Medicine 06/09/24 Vannessa Russell MA [address] [place] [address] Family Medicine 06/17/24 06/18/24 documented as of this encounter
--- OUTSIDE RECORDS SUMMARY | 2025-05-04 15:12 | XMS_ITS | Encounter Summary ---
Author Organization [facility] Address [address] [place] [address] Care Team Providers Care Temperature Inspector Name Role Phone Shaikh ION Grimes Primary Care Provider [phone] Shaikh ION Grimes Unavailable [phone] Jose Beckford MD Primary Care Provider [phone] Cherelle Coronado NP Unavailable [phone] Vannessa Russell MA Unavailable [phone] Encounter Details Date Type Department Care [...] often do you attend chur ch or buddhism services? Never 07/22/2023 Do you belong to any clubs o r organizations such as mu-ism groups, unions, fraternal or athletic groups, or [...] care, and heating? Somewhat hard 07/22/2023 [facility] of Occupat ional Health - [...] PM EST Narrative 08/26/2023 3:17 PM EST [address] [address] XRay Report Signed Patient: KEL CASTILLO Jr. MR#: [id number] : 1955 Acct:[id number] Age/Sex: 68 / M ADM Date: 08/26/23 Loc: RAD Attending Dr: Carlyle Zhang M.D. Ordering Physician: Carlyle Zhang M.D. Date of Service: 08/26/23 Procedure(s): XR shoulder LT min 2V Accession Number(s): [id number] cc: Carlyle Zhang M.D.; Shaikh Krish Grimes [address] [address] Patient Name: KEL CASTILLO MRN: [id number] date: 1955 Sex: M Assigned Patient Location: [facility] Current Patient Location: RAD Accession/Order Number: [id number] Exam Date: 08/26/2023 11:50 Report Date: 08/26/2023 [...] M.D. Signed By: 08/26/237 DD/ 13 TD/TT: Analysis Lead: Procedure Note Radiology, Radiologist, MD - 10/16/2023 [place] [address] XRay Report Signed Patient: KEL CASTILLO Jr.MR#: [id number] : 1955cct:[id number] Age/Sex: 68 / MADM Date: 08/26/23 Loc: RAD Attending Dr: Carlyel Zhang M.D. Ordering Physician: Carlyle Zhang M.D. Date of Service: 08/26/23 Procedure(s): XR shoulder LT min 2V Accession Number(s): [id number] cc: Carlyle Zhang M.D.; Shaikh Krish Grimes [address] [place] [address] Patient Name: KEL CASTILLO MRN: [id number] date: 1955 Sex: M Assigned Patient Location: [facility] Current Patient Location: RAD Accession/Order Number: [id number] Exam Date: 08/26/2023 11:50 Report Date: 08/26/2023 [...] M.D. Signed By:08/26/23 1517 DD/ 1514 TD/TT: Analysis Lead: us Generic External Data Provider IMG XR PROCEDURES Final Result documented in this encounter Visit Diagnoses Not on filedocumented in this encounter Care Teams Temperature Inspector Relationship Specialty Start Date End Date Shaikh Grimes MD [address] [place] [address] PCP - General Internal Medicine 08/12/22 06/08/24 Shaikh Grimes MD [address] [place] [address] PCP - Aetna 10/11/23 08/11/24 Jose Beckford MD [address] [place] [address] PCP - General Family Medicine 06/09/24 Cherelle Coronado NP [address] [place] [address] Nurse Practitioner Family Medicine 06/09/24 Vannessa Russell MA [address] [place] [address] Family Medicine 06/17/24 06/18/24 documented as of this encounter
--- OUTSIDE RECORDS SUMMARY | 2025-05-04 15:12 | XMS_ITS | Encounter Summary ---
Author Organization [facility] Address [address] [place] [address] Care Team Providers Care Water Pollution Control Inspector Name Role Phone Shaikh ION Grimes Primary Care Provider [phone] Shaikh ION Grimes Unavailable [phone] Jose Beckford MD Primary Care Provider [phone] Cherelle Coronado NP Unavailable Vannessa Russell MA Unavailable [phone] Encounter Details Date Type Department Care Team (Late st Contact Info) Description 12/16/2023 [facility] [address] [place] [address] Shaikh Grimes MD [address] [place] [address] Social History Tobacco Use Types Packs/Day Years [...] How often do you attend chur or uatsdin services? Never 07/22/2023 Do you belong to any clubs o r organizations such as voodoo groups, unions, fraternal or athletic groups, or [...] Recorded Patient Health Questionnaire-2 Score 0 09/19/2023 [facility] Occupat ional Health - Occupational Stress [...] place to sleep or slept in a long term (including now)? No 07/22/2023 Sex and Gender Information Value Date Recorded Sex Assigned at Not on file Legal Sex Male 10:05 PM EDT Gender Identity Not on file Sexual Orientation Not on file documented as of this encounter Plan of Treatment Not on file documented as of this encounter Visit Diagnoses Not on filedocumented in this encounter Care Teams Water Pollution Control Inspector Relationship Specialty Start Date End Date Shaikh Grimes MD [address] [place] [address] PCP - General Internal Medicine 08/12/22 06/08/24 Shaikh Grimes MD [address] [place] [address] PCP - Aetna 10/11/23 08/11/24 Jose Beckford MD [address] [place] [address] PCP - General Family Medicine 06/09/24 Cherelle Coronado NP [address] [place] [address] Nurse Practitioner Family Medicine 06/09/24 Vannessa Russell, [place] [address] [place], [place] [address] Family Medicine 06/17/24 06/18/24 documented as of this encounter
--- OUTSIDE RECORDS SUMMARY | 2025-05-04 15:12 | XMS_ITS | Encounter Summary ---
Author Organization [facility] Address [facility] [place] [address] Care Team Providers Care Television Tube Inspector Name Role Phone Thomas Hurtado MD Unavailable Susan Watson CNP Primary Care Provider [phone] Source Comments In the event this information is protected by the Federal Confidentiality of Alcohol and Drug AbusePatient Records regulations: The Federal rules restrict any use of the information to criminally investigate or prosecute any alcohol or drug abuse patient.[facility] Encounter Details Date Type Department Care Team (Late st Contact Info) Description 03/24/[address] [facility] [place] [address] Mariella Padgett RPh At your next appointment, choose [facility]. Social History Tobacco Use Types Packs/Day Years Used Date Smoking Tobacco: Never Smokeless Tobacco: Former Chew Quit: 07/14/2022 PHQ-2 Answer Date Recorded PHQ-2 score 2 10/12/2024 Area Deprivation Index Answer Date Brandon rded National Score (1-100), lower number is lower ri 87 05/16/2023 State Score (1-10), lower number is lower risk 8 05/16/2023 Data from: https://www.neighborhoodatlas.medicine.[facility].edu/. Last address used for calculation [address] [...] on filedocumented in this encounter Care Teams Television Tube Inspector Relationship Specialty Start Date End Date Susan Watson, INSPECTOR RADAR AND ELECTRONICS [address] [place] [address] PCP - General Family Medicine 04/01/25 Thomas Hurtado MD [address] [place] [address] NI Referring Team Psychiatry 12/21/21 documented as of this encounter
--- OUTSIDE RECORDS SUMMARY | 2025-05-04 15:12 | XMS_ITS | Encounter Summary ---
Author Organization [facility] Address [address] [place] [address] Care Team Providers Care Team Assembler Name Role Phone Shaikh ION Grimes Primary Care Provider [phone] Shaikh ION Grimes Unavailable [phone] Jose Beckford MD Primary Care Provider [phone] Cherelle Coronado NP Unavailable [phone] Vannessa Russell MA Unavailable [phone] Encounter Details Date Type Department Care [...] often do you attend chur ch or rastafari services? Never 07/22/2023 Do you belong to any clubs o r organizations such as quaker groups, unions, fraternal or athletic groups, or [...] medical care, and heating? Somewhat hard 07/22/2023 [facility] of Occupat ional Health - Occupational [...] PM EST Narrative 07/29/2023 4:04 [place] [address] XRay Report Signed Patient: KEL CASTILLO Jr. MR#: [id number] : 1955 Acct:[id number] Age/Sex: 68 / M ADM Date: 07/29/23 Loc: RAD Attending Dr: Carlyle Zhang M.D. Ordering Physician: Carlyle Zhang M.D. Date of Service: 07/29/23 Procedure(s): XR shoulder LT min 2V Accession Number(s): [id number] cc: Carlyle Zhang M.D.; Shaikh Krish Grimes [place] [id number] Patient Name: KEL CASTILLO MRN: [id number] date: 1955 Sex: M Assigned Patient Location: [facility] Current Patient Location: [facility] Accession/Order Number: [id number] Exam Date: 07/29/2023 11:20 Report Date: 07/29/2023 [...] or dislocation. Glenohumeral relationship appears grossly unremarkable. Znks-dk-emanaxac degenerative changes about the acromioclavicular joint. Soft tissues are grossly within normal limits. Postoperative sternotomy wires and clips are present. XR/XR shoulder LT min 2V IMPRESSION: Left shoulder study fails to demonstrate definite acute fracture or dislocation. Follow-up as needed. Electronically authenticated by: FABIAN JOSHUA Date: 07/29/2023 16:01 Dictated By: Fabian Joshua M.D. Signed By: 07/29/23 1604 DD/ 1601 TD/TT: Business Banking Sales Assistant: Procedure Note Radiology, Radiologist, MD - 07/29/2023 [place] [address] XRay Report Signed Patient: KEL CATSILLO Jr.MR#: [id number] : 1955cct:[id number] Age/Sex: 68 / MADM Date: 07/29/23 Loc: RAD Attending Dr: Carlyle Zhang M.D. Ordering Physician: Carlyle Zhang M.D. Date of Service: 07/29/23 Procedure(s): XR shoulder LT min 2V Accession Number(s): [id number] cc: Carlyle Zhang M.D.; Shaikh Krish Grimes [address] [place] [address] Patient Name: KEL CASTILLO MRN: [id number] date: 1955 Sex: M Assigned Patient Location: RAD Current Patient Location: RAD Accession/Order Number: [id number] Exam Date: 07/29/2023 11:20 Report Date: 07/29/2023 [...] or dislocation. Glenohumeral relationship appears grossly unremarkable. Ovyf-aw-qzkvfqix degenerative changes about the acromioclavicular joint. Soft tissues are grossly within normal limits. Postoperative sternotomy wires and clips are present. XR/XR shoulder LT min 2V IMPRESSION: Left shoulder study fails to demonstrate definite acute fracture or dislocation. Follow-up as needed. Electronically authenticated by: FABIAN JOSHUA Date: 07/29/2023 16:01 Dictated By: Fabian Joshua M.D. Signed By:07/29/23 1604 DD/ 1601 TD/TT: Business Banking Sales Assistant: Generic External Data Provider IMG XR PROCEDURES Final Result documented in this encounter Visit Diagnoses Not on filedocumented in this encounter Care Teams Team Assembler Relationship Specialty Start Date End Date Shaikh Grimes MD [address] [place] [address] PCP - General Internal Medicine 08/12/22 06/08/24 Shaikh Grimes MD [address] [place] [address] PCP - Aetna 10/11/23 08/11/24 Jose Beckford MD [address] [place] [address] PCP - General Family Medicine 06/09/24 Cherelle Coronado NP [address] [place] [address] Nurse Practitioner Family Medicine 06/09/24 Vannessa Russell MA [address] [place] [address] Family Medicine 06/17/24 06/18/24 documented as of this encounter
--- OUTSIDE RECORDS SUMMARY | 2025-05-04 15:12 | XMS_ITS | Encounter Summary ---
Author Organization [facility] Address [address] [place] [address] Care Team Providers Care Database Administration Project Manager Name Role Phone Jose Beckford MD Primary Care Provider [phone] Cherelle Coronado NP Unavailable [phone] Encounter Details Date Type Department Care Team ([facility] st Contact Info) Description 02/24/2025 Abstract [facility] [place] [facility] [address] [facility] [address] Susan Watson NP [address] [facility] [place] [address] Social History Tobacco Use Types Packs/Day Years [...] How often do you attend chur or confucianist services? Never 02/28/2025 Do you belong to [...] Recorded Patient Health Questionnaire-2 Score 0 03/11/2024 [facility] of Occupat ional Health - [...] any time in the past 12 [address] [place], were you homeless or living in a [...] on filedocumented in this encounter Care Teams Database Administration Project Manager Relationship Specialty Start Date End Date Jose Beckford MD PCP - General Family Medicine 06/09/24 Cherelle Coronado NP Nurse Practitioner Family Medicine 06/09/24 documented as of this encounter
--- OUTSIDE RECORDS SUMMARY | 2025-05-04 15:12 | XMS_ITS | Encounter Summary ---
Author Organization [facility] Address [address] [place] [address] Care Team Providers Care Hvac Residential Service Technician Name Role Phone Shaikh ION Grimes Primary Care Provider [phone] Shaikh ION Grimes Unavailable [phone] Jose Beckford MD Primary Care Provider [phone] Cherelle Coronado NP Unavailable [phone] Vannessa Russell MA Unavailable [phone] Encounter Details Date Type Department Care Team (Late st Contact Info) Description 09/02/2023 Orders Only [facility] [place] [facility] [address] [facility] [address] Carlyle Mcgowan MD [address] [place] [address] [place] [address] Social History Tobacco Use Types [...] any clubs o r organizations such as pentecostal groups, unions, fraternal or athletic groups, or [...] [facility] of Occupat iontn Health - Occupational Stress Questionnaire Answer Date [...] place to sleep or slept in a senior living (including now)? No 07/22/2023 Sex and Gender [...] on filedocumented in this encounter Care Teams Hvac Residential Service Technician Relationship Specialty Start Date End Date Shaikh Grimes MD [address] [place] [address] PCP - General Internal Medicine 08/12/22 06/08/24 Shaikh Grimes MD [address] [place] [address] PCP - [employer]et[employer] 10/11/23 08/11/24 Jose Beckford MD [address] [place] [address] PCP - General Family Medicine 06/09/24 Cherelle Coronado NP [address] [place] [address] Nurse Practitioner Family Medicine 06/09/24 Vannessa Russell, MINESH [address] [place] [address] Family Medicine 06/17/24 06/18/24 documented as of this encounter
--- OUTSIDE RECORDS SUMMARY | 2025-05-04 15:12 | XMS_ITS | Clinical Summary ---
Author Organization [facility] Address [facility] [id number] [address] [place] [address] Care Team Providers Care Airplane Pilot Crop Dusting Name Role Phone Susan Watson APRN-MANAGER SUPPLY Primary Care Provider Allergies No known active [...] healing 09/19/2023 Coronary artery disease invo [place]ving [place] coronary artery of [place] heart without angina pectoris 09/19/2023 EDITH (generalized [...] coronary disease, with CABG. Sees cardiology at [facility]. Anxiety, HTN, CKD IIIb. PCP started albuterol [...] No allergies. Used to work in [employer], but minimal exposure. No other exposures. Lungs [...] - 04/05/2025 11:59 PM EDT Hospital Encounter [facility] - Radiology [address] [place] [address] Other emphysema ([facility]) Discharge Disposition: Home 04/05/2025 Travel 04/01/2025 9:45 AM EDT - 04/01/2025 11:59 PM EDT Hospital Encounter [facility] - MRI Imaging [address] [facility] [place] [address] Shi Sauer PA-C Cervical spondylosis Discharge Disposition: Home 04/01/2025 Travel 03/10/2025 9:45 AM EDT Office Visit [facility] [address] [place] [address] Shi Sauer PA-C Cervical spondylosis (Primary Dx) 03/10/2025 Travel 02/19/2025 2:43 PM EDT - 02/19/2025 2:50 PM EDT Surgery [facility] - Pain Procedures [address] [place] [address] Abiodun Cherry MD INJECTION BLOCK NERVE MEDIAL BRANCH Bilat C 12/15, 01/16 [98149 (CPT )] 02/19/2025 1:47 PM EDT - 02/19/2025 11:59 PM EDT Hospital Encounter [facility] - Pain Procedures [address] [place] [address] Abiodun Cherry MD Discharge Disposition: Home 02/19/2025 8:30 AM EDT - 02/19/2025 1:46 PM EDT Hospital Encounter [facility] - Radiology [address] [place] [address] Abiodun Cherry MD Cervical spondylosis Discharge Disposition: Home from Last 3 Months Social History Tobacco [...] Health Maintenance Due Date Last Done Comments Statin Use: Cardiovascular 1953 Tobacco Counseling 1953 Depression Screening 1965 Adult BMI Follow Up Plan 1971 DTaP,Tdap and Td Vaccines (1 - Tdap) 1972 Zoster (Shingles) Vaccine (1 of 2) 2003 Fall Risk Screening 2018 COVID-19 Vaccine ( season) 2025 08/06/2021, 11/08/2020, 10/19/2020 Influenza Vaccine 04/12/2025 05/23/2021, 08/03/2020 Adult BMI Screening 03/10/2026 03/10/2025 Tobacco Screening 03/10/2026 03/10/2025 Abdominal Aortic Aneurysm (AAA) Screen Completed Medical Devices Not on file Procedures Procedure Name Priority Date/Time Associated Diagnosis Comments XR CHEST 2 VWS Routine 04/05/2025 1:35 PM EDT Other emphysema ([facility]) MR CERVICAL SPINE WO CONT Routine 04/01/2025 10:20 AM EDT Cervical spondylosis FL FLUOROSCOPY UP TO 1 HOUR Routine 02/19/2025 2:29 PM EDT Cervical spondylosis CA INJ DX/THER AGNT PARAVERT FACET JOINT,IMG GUIDE,CERV/THORAC, [...] Roc Valverde MD on 04/05/2025 2:41 PM Michael Gant MD IMG DIAGNOSTIC IMAGING ORDERAB [...] be visible to you in MyChart. Abiodun Cherry MD IMG FLUOROSCOPY ORDERABLES Fi nal Result from Last 3 Months Insurance [employer] Care Teams Airplane Pilot Crop Dusting Relationship Specialty Start Date End Date Susan Watson APRN-MANAGER SUPPLY PCP - General Nurse Practitioner 01/11/25
--- OUTSIDE RECORDS SUMMARY | 2025-05-04 15:12 | XMS_ITS | Encounter Summary ---
Author Organization [facility] Address [address] [place] [address] Care Team Providers Care Equipment Sales Specialist Name Role Phone Thomas Hurtado MD Unavailable Susan Watson CNP Primary Care Provider [phone] Source Comments In the event this information is protected by the Federal Confidentiality of Alcohol and Drug AbusePatient Records regulations: The Federal rules restrict any use of the information to criminally investigate or prosecute any alcohol or drug abuse patient.[facility] Encounter Details Date Type Department Care Team (Late st Contact Info) Description 03/05/2022 Patient Msg Neurology [address] [id number] Provider, [facility] Sleep Study Confirmation Social History Tobacco Use Types Packs/Day Years Used Date Smoking Tobacco: Never Smokeless Tobacco: Current Chew PHQ-2 Answer Date Recorded PHQ-2 score 6 12/22/2021 Area Deprivation Index Answer Date Brandon rded National Score (1-100), lower number is lower ri sk 87 01/02/2022 State Score (1-10), lower number is lower risk N ot on file 01/02/2022 Data from: https://www.neighborhoodatlas.medicine.[facility].edu/. Last address used for calculation [address] [...] on filedocumented in this encounter Care Teams Equipment Sales Specialist Relationship Specialty Start Date End Date Susan Watson, LIQUEFIER [address] [place] [address] PCP - General Family Medicine 04/01/25 Thomas Hurtado MD [address] [place] [address] NI Referring Team Psychiatry 12/21/21 documented as of this encounter
--- OUTSIDE RECORDS SUMMARY | 2025-05-04 15:12 | XMS_ITS | Encounter Summary ---
Author Organization [facility] Address [address] [place] [address] Care Team Providers Care Acetylene Cylinder Packing Mixer Name Role Phone Thomas Hurtado MD Unavailable Susan Watson CNP Primary Care Provider [phone] Source Comments In the event this information is protected by the Federal Confidentiality of Alcohol and Drug AbusePatient Records regulations: The Federal rules restrict any use of the information to criminally investigate or prosecute any alcohol or drug abuse patient.[facility] Reason for Visit * Reason Comments PSG Check In Encounter Details Date Type Department Care Team (Late st Contact Info) Description 02/15/2022 Abstract Neurology [address] [place] [address] Main, Sleep Center [address] [place] [address] PSG Check In Social History [...] Data from: https://www.neighborhoodatlas.medicine.[facility].edu/. Last address used for calculation [address] [...] on filedocumented in this encounter Care Teams Acetylene Cylinder Packing Mixer Relationship Specialty Start Date End Date Susan Watson, ASSISTANT PLANT CONTROLLER [address] [place] [address] PCP - General Family Medicine 04/01/25 Thomas Hurtado MD [address] [place] [address] [place] Referring Team Psychiatry 12/21/21 documented as of this encounter
--- OUTSIDE RECORDS SUMMARY | 2025-05-04 15:12 | XMS_ITS | Encounter Summary ---
Author Organization [facility] Address [address] [place] [address] Care Team Providers Care Massage Operator Name Role Phone Thomas Hurtado MD Unavailable Susan Watson CNP Primary Care Provider [phone] Source Comments In the event this information is protected by the Federal Confidentiality of Alcohol and Drug AbusePatient Records regulations: The Federal rules restrict any use of the information to criminally investigate or prosecute any alcohol or drug abuse patient.[facility] Encounter Details Date Type Department Care Team (Late st Contact Info) Description 02/14/2022 Patient Msg Neurology [address] [phone] Provider, [facility]cf Confirming Your Sleep Study Social History Tobacco Use Types Packs/Day Years Used Date Smoking Tobacco: Never Smokeless Tobacco: Current Chew PHQ-2 Answer Date Recorded PHQ-2 score 6 12/22/2021 Area Deprivation Index Answer Date Brandon rded National Score (1-100), lower number is lower ri sk 87 01/02/2022 State Score (1-10), lower number is lower risk N ot on file 01/02/2022 Data from: https://www.neighborhoodatlas.medicine.[facility].edu/. Last address used for calculation [address] [...] on filedocumented in this encounter Care Teams Massage Operator Relationship Specialty Start Date End Date Susan Watson, HEAD OF IN[employer]GR[employer]IA [address] [place] [address] PCP - General Family Medicine 04/01/25 Thomas Hurtado MD [address] [place] [address] NI Referring Team Psychiatry 12/21/21 documented as of this encounter
--- OUTSIDE RECORDS SUMMARY | 2025-05-04 15:12 | XMS_ITS | Encounter Summary ---
Author Organization [facility] Address [address] [place] [address] Care Team Providers Care Photographic Editor Name Role Phone Thomas Hurtado MD Unavailable Susan Watson CNP Primary Care Provider [phone] Source Comments In the event this information is protected by the Federal Confidentiality of Alcohol and Drug AbusePatient Records regulations: The Federal rules restrict any use of the information to criminally investigate or prosecute any alcohol or drug abuse patient.[facility] Encounter Details Date Type Department Care Team (Late st Contact Info) Description 02/06/2022 [place] [address] Provider, [facility] Questionnaire Submission Social History Tobacco Use Types Packs/Day Years Used Date Smoking Tobacco: Never Smokeless Tobacco: Current Chew PHQ-2 Answer Date Recorded PHQ-2 score 6 12/22/2021 Area Deprivation Index Answer Date Brandon rded National Score (1-100), lower number is lower ri sk 87 01/02/2022 State Score (1-10), lower number is lower risk N ot on file 01/02/2022 Data from: https://www.neighborhoodatlas.medicine.[facility].edu/. Last address used for calculation [address] [...] on filedocumented in this encounter Care Teams Photographic Editor Relationship Specialty Start Date End Date Susan Watson, STORE PROMOTER [address] [place] [address] PCP - General Family Medicine 04/01/25 Thomas Hurtado MD [address] [place] [address] [place] Referring Team Psychiatry 12/21/21 documented as of this encounter
--- OUTSIDE RECORDS SUMMARY | 2025-05-04 15:16 | XMS_ITS | CCD ---
Author Organization [facility] Care Team Providers Care Relay Shop Tester Name Role Phone AMBURN, JOMAR Unavailable Unavailable [...] AZIZ Admitting Unavailable BAKHOUS, AZIZ Attending Unavailable BAKKATEYS, AZIZ Consulting Unavailable NON STAFF Primary Care Unavailable Lucy Cope Admitting Unavailable Lucy Cope Attending Unavailable Corona Monroe Admitting Unavailable Corona Monroe Attending Unavailable Daria Cardoza Primary Care Unavailable Cornelio LEMON, Primary Care Provider Genesis LEMON, Thomas Unavailable EBONY KAUFMAN Referring Unavailable Christian Grimes MDikh Unavailable Analy LEMON, Jose Primary Care Provider Ivonne 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, Jayy Unavailable [phone] Vannessa Russell MA Unavailable Unavailable Cornelio LEMON, [facility] Primary Care Provider [phone] Ivonne 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, Jayy Unavailable Shirley SALES REPRESENTATIVE HEALTH INSURANCE-MÓNICA, Susan Hurley Primary Care Provider SUSAN WATSON Attending Unavailable SUSAN WATSON Attending Unavailable SHAIKH GRIMES Attending Unavailable JAYY CORONADO Attending Unavailabl e SUSAN WATSON Attending Unavailable SUSAN WATSON Attending Unavailable JAYY CORONADO Attending Unavailabl e Aichholz SALES REPRESENTATIVE HEALTH INSURANCE-MÓNICA, Susan J Primary Care Provider Susan Watson CNP Primary Care Provider [phone] BILL GANT Referring Unavailable SUSAN WATSON Primary Care Unavailable BILL GANT Attending Unavailable SELF Referring Unavailable SUSAN WATSON Primary Care Unavailable JAYY CORONADO Referring Unavaila ble CORNELIO MEDINA Primary Care Unavailable ELSARAH PERES A Referring Unavailable CORNELIO [facility] Primary Care Unavailable SUSAN WATSON Referring Unavailable AICHHOLKarlie, SUSAN J Primary Care Unavailable BAKKATEYS, AZIZ Referring Unavailable AICHHOLZ, SUSAN J Primary Care Unavailable BAKHOUS, AZIZ Referring Unavailable AICRandolphHOLZ, SUSAN J Primary Care Unavailable VERHOFF, DARRICK N Attending Unavailable AICHHOLZ, SUSAN J Referring Unavailable AICHHOLZ, SUSAN J Primary Care Unavailable ABIODUN CHERRY Admitting Unavailable ABIODUN CHERRY Attending Unavailable AICHHOLZ, SUSAN J Referring Unavailable AICHHOLZ, SUSAN J Primary Care Unavailable ABIODUN CHERRY E Attending Unavailable ABIODUN CHERRY E Referring Unavailable AICHHOLZ, SUSAN J Primary Care Unavailable DARRICK SAUER Attending Unavailable AICHHOLZ, SUSAN J Referring Unavailable AICHHOLZ, SUSAN J Primary Care Unavailable VERHODARRICK BERGERON N Attending Unavailable DARRICK SAUER Referring Unavailable AICHHOLZ, SUSAN J Primary Care Unavailable BILL GANT Referring Unavailable AICHHOLZ, SUSAN J Primary Care Unavailable EBONY TRENT Attending Unavailable SELF Referring Unavailable MISTY POLO Attending Unavailable EBONY TRENT Referring Unavailable MANDEEP BLACK, EBONY Attending Unavailable SELF Referring Unavailable EBONY TRENT Attending Unavailable AICHHOLKarlie, SUSAN JULIETH Primary Care Unavailable ELTAHAWY, EHAB Attending Unavailable ELTAHAWY, EHAB Admitting Unavailable NAZZAL, MUNIER Referring Unavailable ELTAHAWY, EHAB Attending Unavailable NAZZAL, MUNIER Attending Unavailable ELTAHAWY, EHAB Referring Unavailable ELTAHAWY, EHAB Referring Unavailable Allergies Allergy Classification Reported Allergen(s) Allergy Type Date of Onset Reaction(s) Facility (1 source) Penicillins; Translations: [PENICILLINS] Propensity to adverse reactions to drug (disorder) [facility] Repository Medications Current Medications Medication Drug Class(es) Dates Sig (Normalized) Sig (Original) [id number] 200 actuat albuterol 0.09 mg/actuat metered dose [...] EC tablet Indications: 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 Take 1 tablet [...] MG tablet Indications: 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 Take 1 tablet [...] daily. 12/15/2021 Active take 1 capsule by [facility] once daily before breakfast fenofibrate micronized [...] Indications: Chronic kidney disease, stage 4 (severe) (HCC) Take 1 tablet (325 mg) by mouth [...] (20 sources) Anticholinergic, Corticosteroid, beta2-Adrenergic Agonist Start: 024 End: 025 take 1 puff(s) by mouth once daily, then take 1 puff(s) by mouth once daily Fluticasone-Umecli din-Vilant (Trelegy Ellipta) 100-62.5-25 MCG/ACT aerosol powder Indications: Chronic obstructive pulmonary disease, unspecified COPD type (HCC) Inhale 1 puff Daily Rinse mouth after use. Inhale 1 puff Daily 180 each 1 03/01/2025 05/30/2025 Active Start: 02-18-2024 End: 03-24-2025 take 1 puff(s) by inhalation in the morning fprembtipdy-mmahtzano-dzwvjxnp (TRELEGY ELLIPTA) 100-62.5-25 mcg blister with device Inhale 1 puff in the morning. 02/18/2024 03/24/2025 Active Start: 10-15-2023 Fluticasone-Um eclidin-Vilanter (Trelegy Ellipta) 100-62.5-25 mcg blister with device Active 1 INH INHALATION Daily October 15, 2023 1:00am Start: 09-19-2023 End: 12-18-2023 take 1 puff(s) by inhalation in the morning Fiyafdbdpbr-Zuxiwnzmn-Jbywai (Trelegy Ellipta) 100-62.5-25 MCG/ACT aerosol powder Indications: Chronic obstructive pulmonary disease, unspecified COPD type (CMS/HCC) Inhale 1 puff in the morning. 90 each 0 09/19/2023 12/18/2023 Active Start: 02-27-2022 take 1 puff(s) by inhalation once daily Trelegy Ellipta 100-62.5-25 MCG/INH 1 pu ff Inhalation Once a day for 30 days Feb, Active End: 09-19-2023 Mddokclhaxf-Pkxfsmdzz-Llepda (Trelegy Ellipta) 100-62.5-25 MCG/ACT aerosol powder Inhale [...] hr tablet Indications: 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 (CMS/HCC) , Primary hypertension (CMS/HCC) Take 1 tablet (60 mg) by mouth in the morning. Do not crush or chew.. 90 tablet 0 09/19/2023 12/18/2023 Active Start: 10-22-2019 End: 05-30-2025 take 1 tablet by mouth once daily isosorbide mononitrate ER (Imdur) 60 MG 24 hr tablet Indications: Primary hypertension , 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 Take 1 tablet [...] Primary hypertension , 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 Take 1 tablet (50 mg) by mouth in the morning and 1 tablet (50 mg) before bedtime. 180 tablet 1 03/01/2025 05/30/2025 Active Start: 09-19-2023 End: 12-18-2023 take 1 tablet by mouth in the morning metoprolol tartrate (Lopressor) 50 MG tablet Indications: 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 (CMS/HCC) , Primary [...] DAILY Active take 1 capsule by mo [facility] twice daily Metoprolol Succinate 50 [...] SL tablet Indications: 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 Place 1 tablet [...] MG tablet Indications: EDITH (generalized anxiety disorder) (CMS/[facility]) Take 1 tablet (2.5 mg) by mouth [...] BY MOUTH EVERY DAY AT BEDTIME omega 5-cpf-kcn-fish oil (FISH OIL) 100-160-1,000 mg cap (16 sources) omega 3-dha-epa- fish oil (FISH OIL) 100-160-1,000 mg cap Take by mouth. Active omega 3-dha-epa- fish oil (FISH OIL) 100-160-1,000 mg cap Take by mouth. 0 Active Comment on above: Take by mouth. [place]-3 Fatty Acids (2 sources) Start: 09-13-2020 take 1000 mg by mouth once daily [place]-3 Fatty Acids Active 1000 MG PO Daily September 13, 2020 1:00am [place]-3 Fatty Acids Capsule (2 sources) Start: 09-13-2020 take 1 capsule by mouth once daily [place]-3 Fatty Acids Capsule Active 1000 MG PO [...] Comment on above: INHALE 1 PUFF BY [facility] EVERY DAY methylPREDNISolone (9 sources) Corticosteroid Start: 12-22-2021 End: 08-15-2022 methylPREDNISolone (MEDROL, TEAGAN,) 4 mg Dose-Pack Take as instructed 1 Package 0 12/22/2021 08/15/2022 Discontinued Start: 12-22-2021 methylPREDNISo lone (MEDROL, TEAGAN,) 4 mg Dose-Pack Take as instructed 1 Package 0 12/22/2021 Active Comment on above: Take as instructed Multivitamins-Minerals -Lutein (MULTIVITAMIN 50 PLUS) tab (9 sources) End: 08-15-2022 Groxtbhpsevyr-Nilqfide-Yjri in (MULTIVITAMIN 50 PLUS) tab Take 1 [...] MG PO Q6H as needed for pain 10 03September 30, 2020 1:00am October 15, 2023 5:00pm [...] disease (20 sources) Atherosclerotic heart disease of mechoopda coronary artery without angina pectoris; Translations: [Coronary [...] of the extremities; Translations: [Unspecified atherosclerosis of mechoopda arteries of extremities, unspecified extremity] Onset: 08-25-2012 [...] Test Name Value Interpretation Reference Range Facility [facility] 04-29-2025 [facility] Office Visit (NEIND4 ) SAMIR CASTILLO ([id number]) 1955 M Date Time Provider Department 04/29/25 11:00 AM EBONY TRENT NEIND4 During your visit today, we recorded the following information about you: Pulse Blood pressure Weight 60/minute 107/62 72.6 kg EmmaCielo tomMINESH 04/29/2025 4:05 PM Signed 04/22/2025 PROMIS [facility] Physical Health Summary [...] SD worse than population and warrants attention Ebony Trent DO 04/29/2025 4:05 PM Signed [facility] General Neurology Follow up/ Established patient visit Individuals who were included in, or assisted with the encounter were: Samir Castillo Ebony Black DO Chief Complaint/Issues: Samir Castillo is a 70 year old male seen in the [facility] for General Neurology for: Memory loss Most [...] graded by MRC Gait No ataxia Assessment AND Plan 04/29/2025 - General Neurology, Ebony Black, DO ASSESSMENT Mr. Castillo is a 70 year old man with memory issues and tension headache which have all improved. PLAN Follow-up in December when I am back from maternity leave, or a needed No diagnosis found. No follow-ups on file. Data Review Objective Current Outpatient Medications Medicati (more content not included)... Normal [facility] 36on 2025 36 I asked Jacki in the lab if this could be done with Dr. Tolliver prior to his vascular surgery scheduled for 06/07/2025. He has no openings as of right now. Dr. Tolliver, would you be ok with Dr. Silvestre doing the cath? (Not even sure if that would be ok with the patient and his daughter but I thought I'd start with you.) [facility] 36 Please let the patie nt and his daughter know that his ejection fraction has indeed decreased; from a prior echo that was 56%, it is currently between 40-45%. While his stress test did not show any ischemia , if vascular surgery are planning an open vascular bypass, I would recommend cardiac catheterization via radial approach to assess his coronary and graft anatomy before surgery. If they are not planning vascular surgery, and the patient has no chest pain or shortness of breath, the risks of a cardiac cath would outweigh the benefits at this point. I hope this makes sense for them. Happy to answer any questions. Thank you Phone call from daughter states she is not happy with [facility] Nephrology and would like a recommendation. I did advise her I would send a referral to [facility] Nephrology and she stated that would be great. I did advise her of her fathers Echo results and she said the vascular surgery is scheduled for May. She stated the right leg is going to be done first then the left leg later on. She stated it will be 2 small incisions one in the groin area and one in the lower leg area. She would like to know if they are using that approach does her father need the heart cath prior. Please advise. [facility] Telephoneon 2025 Telephone [id number] Kel Castillo 1955 Date Provider Department Center 2025 FINN ROJAS [facility] CARD [facility] Family History Problem Relation Age of Onset Diabetes Mother Family Status - Relation Status Age at Mother [facility] Orders Onlyon 04-27-2025 Orders Only [id number] Kel Castillo 1955 M Date Provider Department [place] 04/27/2025 [id number], HISTORICAL SAMI Rasmussen Family History Problem Relation Age of Onset Diabetes Mother Family Status - Relation Status Age at Mother [facility] 3604-21-2025 34 Regarding stress lamont t result from [...] Tolliver. He has an apt today at [facility] with vascular surgery. Order for limited echo faxed to [facility]. [facility] Orders Onlyon 04-20-2025 Orders Only [id number] Kel Castillo 1955 M [facility] Department [place] 04/20/2025 [id number] [place] SAMI Rasmussen Family History Problem Relation Age of Onset Diabetes Mother Family Status - Relation Status Age at Mother [facility] 04-19-2025 36 Pt calling about bmp results, they are in media please advise [facility] Nichelle 04-08-2025 ANES -- Attestation signed by Sarah Tolliver MD at 04/08/2025 9:29 AM Sarah Tolliver MD, MPH, FACC, [facility], [place] Interventional Cardiology Pager Email: [email or web address] Patient: Kel Castillo Procedure Information Date/Time: 04/08/25929 Procedures: Aortogram - PC APPROVED AO/ RUNOFFS Lower extremity angiogram (Bilateral) Location: [facility] BUDGET DIRECTOR 3 / [facility] VASCULAR LAB (Cath) Providers: Sarah Tolliver MD Clinical information reviewed: [facility] Physical Exam Airway Mallampati: III TM distance: [...] discussed with attending. Additional Equipment Requests Normal [facility] BASIC METABOLIC PANELon 08 Anion gap [Moles/Vol] 10 mmol/L Normal 7-20 [facility] Comment on above: Performed By: #### L AB15 #### [facility] (BEAKER) [address] [place] [address] Calcium [Mass/Vol] 9.3 mg/dL Normal 8.6-10.3 [facility] Comment on above: Performed By: #### L AB15 #### [facility] (BEAKER) [address] [place] [address] Chloride [Moles/Vol] 106 mmol/L Normal 98-107 [facility] Comment on above: Performed By: #### L AB15 #### [facility] (BEAKER) [address] [place] [address] CO2 [Moles/Vol] 28 mmol/L Normal 21-31 [facility] Comment on above: Performed By: #### L AB15 #### [facility] ([facility]) [address] [place] [address] Creatinine [Mass/Vol] 2.18 mg/dL High 0.70-1.30 [facility] Comment on above: Performed By: #### L AB15 #### [facility] ([facility]) [address] [place] [address] GLOMERULAR FILTRATION RATE ML/MIN/1.73 SQ M.PREDICTED 31.6 mL/min/1.73m*2 Low >60.0 [facility] Comment on above: Result Comment: The [facility]???s estimated glomerular filtration rate (eGFR) will [...] individuals. Performed By: #### L AB15 #### [facility] ([facility]) [address] [place] [address] Glucose [Mass/Vol] 102 mg/dL High 70-100 [facility] Comment on above: Performed By: #### L AB15 #### [facility] ([facility]) [address] [place] [address] Potassium [Moles/Vol] 4.4 mmol/L Normal 3.5-5.1 [facility] Comment on above: Performed By: #### L AB15 #### [facility] ([facility]) [address] [place] [address] Sodium [Moles/Vol] 140 mmol/L Normal 136-145 [facility] Comment on above: Performed By: #### L AB15 #### [facility] ([facility]) [address] [place] [address] Urea nitrogen [Mass/Vol] 34 mg/dL High 7-25 [facility] Comment on above: Performed By: #### L AB15 #### [facility] ([facility]) [address] [place] [address] UREA NITROGEN/CREATININE (MASS RATIO) IN SER/PLAS 15.6 Normal [facility] Comment on above: Performed By: #### L AB15 #### [facility] [address] [place] [address] CBCon 04-08-2025 Erythrocyte distribution width (RBC) [Ratio] 14.6 % Normal 11.5-15.0 [facility] Comment on above: Performed By: #### L [id number] ####[facility] ([facility])[address] [place] [address] ERYTHROCYTE MEAN CORPUSCULAR HEMOGLOBIN CONCENTRATION (G/DL) BY AUTOMATED 33.1 g/dL Normal 32.0-35.0 [facility] Comment on above: Performed By: #### L [id number] ####[facility] ([facility])[address] [place] [address] Hematocrit (Bld) [Volume fraction] 34.1 % Low 39.0-50.0 [facility] Comment on above: Performed By: #### L [id number] ####[facility] ([facility] [place] [address] Hemoglobin (Bld) [Mass/Vol] 11.3 g/dL Low 13.0-17.0 [facility] Comment on above: Performed By: #### L [id number] ####[facility] ([facility] [place] [address] MCH (RBC) [Entitic mass] 30.6 pg Normal 27.0-33.0 [facility] Comment on above: Performed By: #### L [id number] ####[facility] (BEAKER)[address] [place] [address] MCV (RBC) [Entitic vol] 92.4 fL Normal 82.0-98.0 [facility] Comment on above: Performed By: #### L [id number] ####[facility] ([facility])[address] [place] [address] PLATELETS (10*3/UL) IN BLOOD AUTOMATED COUNT 173 10*3/uL Normal 150-400 [facility] Comment on above: Performed By: #### L [id number] ####[facility] ([facility])[address] [place] [address] RBC (Bld) [#/Vol] 3.69 10*6/uL Low 4.20-5.70 [facility] Comment on above: Performed By: #### L [id number] ####[facility] ([facility])[address] [place] [address] WBC (Bld) [#/Vol] 6.07 10*3/uL Normal 4.00-10.60 [facility] Comment on above: Performed By: #### L [id number] ####[facility] ([facility])[address] [place] [address] HPon 04-08-2025 HP -- Attestation signed by [...] his baseline creatinine. Sarah Tolliver MD, MPH, [facility], [facility], [facility] Interventional Cardiology Pager Email: [email or web address] History Of Present Illness Kel Castillo is a 69 y.o. male presenting initally in clinic with leg pain. He has an extensive PMH of CAD s/p 3V CABG in 2009, CKD 4, PAD, HTN, HLD, COPD. His last cath was in 2019 which showed severe mechoopda CAD, patent SPRAGUE-LAD and SVG-OM but occluded radial-PDA. Aortogram at that time showed new severely calcific right MANAGER PMO lesion. His last TTE in 02/19/25 notes [...] has a past medical history of Cancer (CMS/[facility]), Coronary artery disease, Hyperlipidemia, and Hypertension. Surgical [...] aortogram w/ bilateral angiography Evgeny Arceo MD Lavatory Attendant, PGY-4 [facility] 04/08/25 9:15 AM [1] Medications [...] fluticasone-umeclidin- vilanter (Huy (more content not included)... [facility] NURSNOTEon 04-08-2025 NURSNOTE RN educated pt on [...] off of unit with all of belongings. [facility] Orders Onlyon 04-08-2025 Orders Only [id number] Kel Castillo 1955 M Date Provider Department Center 04/08/2025 REGINA JONES [facility] VAS LAB [facility] Family History Problem Relation Age of Onset Diabetes Mother Family Status - Relation Status Age at Mother [facility] CNPNon 04-05-2025 CNPN Telephone (AGCARDPOB ) SAMIR CASTILLO ([id number]) 1955 M Date Time Provider Department 04/05/25 BILL GANT AGCARDPOB During your visit today, we recorded the following information about you: Mariana Wheeler LPN 04/05/2025 4:03 PM Signed Chest x-ray results received from [employer]. Scanned in for review. 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 Problem List As Of Date 04/05/2025 Noted Resolved Dyspnea and respiratory abnormalities [R06.00, *02/09/2022 Recurrent major depression in partial remission*04/12/2022 MCI (mild cognitive impairment) [G31.84] 04/12/2022 Encounter Status:Closed by MARIANA WHEELER on 04/05/25 Normal [facility] XR CHEST 2 VWSon 04-05-2025 XR CHEST [...] Valverde MD on 04/05/2025 2:41 PM Normal [facility] MR CERVICAL SPINE WO CONTon 04-03-2025 MR [...] Swain MD on 04/03/2025 12:02 PM Normal [facility] CCF NT-PROBNP SERPL-MCNCon 0 04-01-2025 Natriuretic peptide B (Bld) [Mass/Vol] 4813 pg/mL High NINF - 125 pg/mL [facility] Specimen Type: BLOOD SPECIMEN [facility]ing Facility[facility] Address: [address] [place] [address] Original Ordering Provider: BILL GANT [facility] CNOVon 04-01-2025 CNOV Office Visit (AGCARDPOB) SAMIR CASTILLO ([id number]) 1955 M Date Time Provider Department 04/01/25 [...] a new patient visit. He lives in [place] and gets most of his care in [place] at [facility] but just wants a second [...] supplemental oxygen. He has not seen a senior security analyst recently and has not had any pulmonary [...] family for transportation. 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 He quit smoking 40 [...] 1/2 TABLETS BY MOUTH EVERY DAY omega 8-vus-gqg-fish oil (FISH OIL) 100-160-1,000 mg cap Take [...] (more content not included)... Normal [facility] ECG B/O W INTERP (MED OFFICE )on 04-01-2025 Normal sinus rhythm nonspecific ST-T changes septal Q waves [facility] NT PRO BNPon 04-01-2025 Natriuretic peptide.B prohormone N-Terminal [Mass/Vol] 4813 pg/mL High NINF - 125 pg/mL [facility] NT-proBNP SerPl-mCncon 04-01 Natriuretic peptide.B prohormone N-Terminal [Mass/Vol] 4813 pg/mL High <125 [facility] Comment on above: Order Comment: Speci men Type: BLOOD SPECIMEN Ordering Facility: [facility] Address: [facility] [place] [address] Performed By: #### 3 [id number] #### [facility] CLIA [id number] [address] [place] [id number] [place] No Panel Informationon 04-01 Interpretation and review of laboratory results Abnormal [facility] 36on 03-11-2025 36 Spoke with daughter and informed her I would put orders in and [facility] would be contacting her to set this up. I advised her her father would need lab orders about 1 week prior to scheduled procedure. She verbalized understanding. Orders entered and faxed to [facility]. [facility] 36 Spoke with his daughter Nini. She says he's having extreme leg pain . You aren't here in [place] again for another 4 weeks. Daughter would like to proceed with LE angiogram if that's ok with you? [facility] 36 I received a call fr om radiology at [facility]. This patient is here now for CTA abdomen/pelvis. Due to elevated s. creatinine (2.07, GFR 32), the test was unable to be performed. Would you like him to try again? How long should he wait to get it rescheduled? Thanks. [facility] Orders Onlyon 03-11-2025 Orders Only [id number] Kel Castillo 1955 M Date Provider Department Center 03/11/2025 Ruben-MELODY OLIVA [facility] Family History Problem Relation Age of Onset Diabetes Mother Family Status - Relation Status Age at Mother [facility] CREATININEon 03-11-2025 Creatinine [Mass/Vol] 2.07 mg/dL High 0.70 - 1.30 mg/dL [facility] GFR/1.73 sq M.predicted CKD-EPI (S/P/Bld) [Vol rate/Area] 39 Low >=60 mL/min/1.73m 2 [facility] Healthcare Interpretation and review of laboratory results Abnormal [facility] EGFR-NON AF LIBYAN 32 Low >=60 mL/min/1.73m 2 [facility] Healthcare 36on 02-25-2025 36 See telephone note o n 02/24/[address] Tolliver. [facility] 36on 02-24-2025 36 Regarding HUBER's performed on 02/18/2025: MD Melody Juarez MA If the patient is having leg pain, please order an abdominal CTA with run offs (bilateral lower extremity angiography) Thanks. Spoke with patient's daughter and she states he's having lots of leg pain. Told her Dr. Tolliver would like further testing and she agreed. Order faxed to [facility]. Daughter verbalized understanding. [facility] 36 Spoke to daughter advised her of Dr. Levi ECHO findings. Daughter verbalized understanding. Daughter is requesting results of HUBER'S advised daughter as soon as Reviews them we will call her with the results. Daughter states she is very concerned with what she read on mychart about HUBER test results [facility] SEGMENTAL BLOOD PRESSUREon 0 02-23-2025 [place] [address] Cardiology Report Signed Patient: KEL CASTILLO Jr. MR#: [id number] : 1955 Acct:[id number] Age/Sex: 69 / M ADM Date: 02/18/25 Loc: CARD Attending Dr: Sarah Tolliver M.D. Ordering Physician: Sarah Tolliver M.D. Date of Service: 02/18/25 Procedure(s): CA segmental UE or LE LEENA Accession Number(s): [id number] cc: Susan Watson NP; Sarah Tolliver M.D. [facility] Test Date: 2025-02-18 Pat Name: KEL CASTILLO Department: Room: - Gender: Male Gas Load Dispatcher: : 1955 Requested By: SARAH TOLLIVER Order Number: [id number] Reading MD: SARAH TOLLIVER Interpretive Statements Bilateral, moderately reduced ankle-brachial indices. 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 Recommend further imaging with CT or invasive angiography. Electronically Signed On 02-23-2025 12:52:03 EDT by SARAH TOLLIVER Dictated By: Sarah Tolliver M.D. Signed By: 02/23/25 1252 02/23/25 1252 DD/ 0841 TD/TT: Martial Arts Instructor: [facility] Radiology, Radiologist, MD - 02/23/2025 [place] [address] Cardiology Report Signed Patient: KEL CASTILLO Jr. MR#: [id number] : 1955 Acct:[id number] Age/Sex: 69 / M ADM Date: 02/18/25 Loc: CARD Attending Dr: Sarah Tolliver M.D. Ordering Physician: Sarah Tolliver M.D. Date of Service: 02/18/25 Procedure(s): CA segmental UE or LE LEENA Accession Number(s): [id number] cc: Susan Watson 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; Sarah Tolliver M.D. [facility] Date: 2025-02-18 Pat Name: KEL CASTILLO Department: Room: - Gender: Male Gas Load Dispatcher: : 1955 Requested By: SARAH TOLLIVER Order Number: [id number] Reading MD: SARAH TOLLIVER Interpretive Statements Bilateral, moderately reduced ankle-brachial indices. 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 Recommend further imaging with CT or invasive angiography. Electronically Signed On 02-23-2025 12:52:03 EDT by SARAH TOLLIVER Dictated By: Sarah Tolliver M.D. Signed By: 02/23/25 1252 02/23/25 1252 DD/ 0841 TD/TT: Martial Arts Instructor: EDWIN Singer SEGMENTAL BLOOD PRESSUREOrde red By: Radiologist Radiology on 02-23-2025 [employer] Work Phone: 36on 02-22-2025 36 Patient's daughter called asking about result of echo. It was just scanned into you about 10 minutes ago. She saw the result from [facility] portal Saturday night and was concerned when she saw the word severe in the result. Daughter told me she called the [facility] physician bill recapitulation clerk Saturday night. I told her it was fine to wait until you reviewed result and I would call her. Thanks. Normal [facility] Telephoneon 02-22-2025 Telephone [phone] Kel Castillo 1955 M [facility] Provider Department [place] 02/22/2025 FranciaMELODY OLIVA [facility] Family History Problem Relation Age of Onset Diabetes Mother Family Status - Relation Status Age at Mother [facility] CA ECHO DOPPLER COMPLETEon 0 02-19-2025 [place] [address] Cardiology Report Signed Patient: KEL CASTILLO Jr. MR#: [id number] : 1955 Acct:[id number] Age/Sex: 69 / M ADM Date: 02/18/25 Loc: CARD Attending Dr: Sarah Tolliver M.D. Ordering Physician: Sarah Tolliver M.D. Date of Service: 02/18/25 Procedure(s): CA echo doppler complete Accession Number(s): [id number] cc: Susan Watson 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; Sarah Tolliver M.D. Patient Name: KEL CASTILLO MR#: [id number] : 1955 Exam Date: 02/18/2025 Ordering Doctor: [...] Area (VTI): 2.12 cm2, 2.12 cm2 Deceleration Boundary: Pressure Half-Time: Peak Velocity(Antegrade Flow): 1.47 m/s Peak Gradient(Antegrade Flow): 8.67 mm[Hg] Mean Velocity(Antegrade Flow): 0.98 m/s Mean Gradient(Antegrade Flow): 4.49 mm[Hg] Velocity Time Integral: 37.64 cm Tricuspid Valve Peak Velocity (Regurgitant Flow): 2.39 m/s, 3.11 m/s, 3.28 m/s Peak Velocity: Pulmonic Valve Mean Gradient: Mean Velocity: (more content not included)... [facility] Radiology, Radiologist, MD - 02/19/2025 [place] [address] Cardiology Report Signed Patient: KEL CASTILLO Jr. MR#: [id number] : 1955 Acct:[id number] Age/Sex: 69 / M ADM Date: 02/18/25 Loc: CARD Attending Dr: Sarah Tolliver M.D. Ordering Physician: Sarah Tolliver M.D. Date of Service: 02/18/25 Procedure(s): CA echo doppler complete Accession Number(s): [id number] cc: Susan Watson 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; Sarah Tolliver M.D. Patient Name: KEL CASTILLO MR#: [id number] : 1955 Exam Date: 02/18/2025 Ordering Doctor: [...] Area (VTI): 2.12 cm2, 2.12 cm2 Deceleration Boundary: Pressure Half-Time: Peak Velocity(Antegrade Flow): 1.47 m/s [...] M.D. Signed By: 02/19/251822 DD/ 21 TD/TT: Martial Arts Instructor: [facility] Radiology Study observation (narrative) [facility] CA ECHO DOPPLER COMPLETEOrde red By: Radiologist Radiology on 02-19-2025 [facility] Work Phone: SEGMENTAL BLOOD PRESSUREon 0 02-18-2025 Radiology Study observation (narrative) [facility] CBC (NO DIFF)on 01-12-2025 Erythrocyte distribution width (RBC) [Ratio] 14.9 % Normal 11.5-15 [facility] Comment on above: Performed By: #### U A #### [facility] ([id number]) [address] [place] [address], [address] [place] [address] Hematocrit (Bld) [Volume fraction] 34.1 % Low 39-50 [facility] Comment on above: Performed By: #### U A #### [facility] ([id number]) [address] [place] [address], [address] [place] [address] Hemoglobin (Bld) [Mass/Vol] 11.5 g/dL Low 13-17 [facility] Comment on above: Performed By: #### U A #### [facility] ([id number]) [address], [facility] [address] [place] [address] MCH (RBC) [Entitic mass] 30.6 pg Normal 27-34 [facility] Comment on above: Performed By: #### U A #### [facility] ([id number]) [address], [address] [place] [address] MCHC (RBC) [Mass/Vol] 33.6 g/dL Normal 32-36 [facility] Comment on above: Performed By: #### U A #### [facility] ([id number]) [address], [facility] [address] [place] [address] MCV (RBC) [Entitic vol] 91 fL Normal 80-100 [facility] Comment on above: Performed By: #### U A #### [facility] ([id number]) [address], [facility] [address] [place] [address] Platelet mean volume (Bld) [Entitic vol] 7.5 fL Normal 7-12 [facility] Comment on above: Performed By: #### U A #### [facility] ([id number]) [address], [address] [place] [address] Platelets (Bld) [#/Vol] 122 10*3/uL Low 150-450 [facility] Comment on above: Performed By: #### U A #### [facility] ([id number]) [address], [address] [place] [address] RBC COUNT 3.75 X10E12/L Low 4.1-5.7 [facility] Comment on above: Performed By: #### U A #### [facility] ([id number]) [address], [address] [place] [address] WBC (Bld) [#/Vol] 5.5 10*3/uL Normal 4-[address] [facility] Comment on above: Performed By: #### U A #### [facility] ([id number]) [address], [address] [place] [address] MAGNESIUMon 01-12-2025 Magnesium [Mass/Vol] 2.0 mg/dL Normal 1.8-2.6 [facility] Comment on above: Performed By: #### U A #### [facility] ([id number]) [address] [facility], [address] [place] [address] MICROALBUMIN / CREATININE UR INE RATIOon 01-12-2025 Albumin DL <= 20 mg/L (U) [Mass/Vol] 0.9 mg/dL Normal 0.0-1.9 [facility] Comment on above: Performed By: #### C BC, 6-4, 1-8, 2131-9, 2283-8, 21149- 6, FEPR, 90657-1, LIVR, 28049-3, RENAL, 3084-1 #### [facility] ([id number]) [address], [address] [place] [address] MALB/CREAT RATIO 6.8 mg/g Normal 0.0-30.0 [facility] Comment on above: Performed By: #### C BC, 6-4, 1-8, 2131-9, 2283-8, 98793- 6, FEPR, 41409-6, LIVR, 71224-6, RENAL, 3084-1 #### [facility] ([id number]) [address], [address] [place] [address] URINE CREATININE,RDM 132.37 mg/dL Normal [facility] Comment on above: Performed By: #### C BC, 6-4, 1-8, 2131-9, 2283-8, 98042- 6, FEPR, 08205-8, LIVR, 22183-1, RENAL, 3084-1 #### [facility] ([id number]) [address], [address] [place] [address] RENAL PANELon 01-12-2025 Albumin [Mass/Vol] 4.1 g/dL Normal 3.2-5.[address] [facility] Comment on above: Performed By: #### U A #### [facility] ([id number]) [address], [address] [place] [address] Anion gap [Moles/Vol] 9 mmol/L Normal 5-15 [facility] Comment on above: Performed By: #### U A #### [facility] ([id number]) [address], [address] [place] [address] Calcium [Mass/Vol] 9.1 mg/dL Normal 8.5-10.[address] [facility] Comment on above: Performed By: #### U A #### [facility] ([id number]) [address], [address] [place] [address] Chloride [Moles/Vol] 110 mmol/L High 98-109 [facility] Comment on above: Performed By: #### U A #### [facility] ([id number]) [address], [address] [place] [address] CO2 [Moles/Vol] 26 mmol/L Normal 22-32 [facility] Comment on above: Performed By: #### U A #### [facility] ([id number]) [address], [address] [place] [address] Creatinine [Mass/Vol] 1.87 mg/dL High 0.60-1.30 [facility] Comment on above: Result Comment: METH OD TRACEABLE TO IDMS STANDARD Performed By: #### U A #### [facility] ([id number]) [address], [address] [place] [address] GFR/1.73 sq M.predicted among non-blacks MDRD (S/P/Bld) [Vol rate/Area] 38 mL/min/{1.73_m2} Low >=60 [facility] Comment on above: Result Comment: Repo rted eGFR is based on the CKD-EPI 2020 equation that does not use a race coefficient. Performed By: #### U A #### [facility] ([id number]) [address], [address] [place] [address] Glucose [Mass/Vol] 93 mg/dL Normal 65-[address] [facility] Comment on above: Performed By: #### U A #### [facility] ([id number]) [address], [address] [place] [address] Phosphate [Mass/Vol] 4.0 mg/dL Normal 2.4-4.9 [facility] Comment on above: Performed By: #### U A #### [facility] ([id number]) [address], [address] [place] [address] Potassium [Moles/Vol] 4.3 mmol/L Normal 3.5-5.0 [facility] Comment on above: Performed By: #### U A #### [facility] ([id number]) [address], [address] [place] [address] Sodium [Moles/Vol] 145 mmol/L Normal 134-[address] [facility] Comment on above: Performed By: #### U A #### [facility] ([id number]) [address], [address] [place] [address] Urea nitrogen [Mass/Vol] 30 mg/dL High 5-27 [facility] Comment on above: Performed By: #### U A #### [facility] ([id number]) [address], [address] [place] [address] URINALYSISon 01-12-2025 Bilirubin Ql (U) Negative Normal Negative [facility] Comment on above: Performed By: #### U A #### [facility] ([id number]) [address] [facility], [address] [place] [address] BLOOD/HGB Negative Normal Negative [facility] Comment on above: Performed By: #### U A #### [facility] ([id number]) [address] [facility] [facility], [address] [place] [address] Color (U) Yellow Normal Yellow, Colorless [facility] Comment on above: Performed By: #### U A #### [facility] ([id number]) [address] [facility], [address] [place] [address] Glucose Ql (U) Negative Normal Negative [facility] Comment on above: Performed By: #### U A #### [facility] ([id number]) [address] [facility], [address] [place] [address] Ketones Ql (U) Negative Normal Negative [facility] Comment on above: Performed By: #### U A #### [facility] ([id number]) [address] [facility], [address] [place] [address] Leukocyte esterase Test strip Ql (U) Negative Normal Negative [facility] Comment on above: Performed By: #### U A #### [facility] ([id number]) [address], [address] [place] [address] Nitrite Ql (U) Negative Normal Negative [facility] Comment on above: Performed By: #### U A #### [facility] ([id number]) [address] [facility], [address] [place] [address] PH,URINE 6.0 Normal 5.0-8.5 [facility] Comment on above: Performed By: #### U A #### [facility] ([id number]) [address] [facility], [address] [place] [address] Protein Ql (U) Negative Normal Negative [facility] Comment on above: Performed By: #### U A #### [facility] ([id number]) [address], [address] [place] [address] Specific gravity (U) [Rel density] 1.018 Normal 1.003-1.035 [facility] Comment on above: Performed By: #### U A #### [facility] ([id number]) [address], [address] [place] [address] TURBIDITY Clear Normal Clear [facility] Comment on above: Performed By: #### U A #### [facility] ([id number]) [address], [address] [place] [address] UROBILINOGEN <1.1 eu/dL Normal <1.1 eu/dL [facility] Comment on above: Performed By: #### U A #### [facility] ([id number]) [address], [address] [place] [address] XR SPINE CERVICAL 3 VWS OR L [...] Wild MD on 01/12/2025 12:57 AM Normal [facility] COMPLETE BLOOD COUNTon 10-20 Erythrocyte distribution width (RBC) [Ratio] 15.0 % Normal 11.5-15.0 [facility] Comment on above: Performed By: #### C BC, 2276-4, 2730-8, 9, 2283-8, 96369- 6, FEPR, 06419-8, LIVR, 80708-3, RENAL, 3084-1 #### [facility] ([id number]) [address], [address] [place] [address] Hematocrit (Bld) [Volume fraction] 36.4 % Low 39-49 [facility] Comment on above: Performed By: #### C BC, 2275-4, 2730-8, 2132-04, 8, 21156- 6, FEPR, 25790-2, LIVR, 92095-0, RENAL, 3084-1 #### [facility] ([id number]) [address] [facility], [address] [place] [address] Hemoglobin (Bld) [Mass/Vol] 12.5 g/dL Low 13.0-17.0 [facility] Comment on above: Performed By: #### C BC, 2275-4, 2730-8, 2132-04, 2283-8, 89145- 6, FEPR, 10785-1, LIVR, 56349-8, RENAL, 3084-1 #### [facility] ([id number]) [address], [address] [place] [address] MCH (RBC) [Entitic mass] 30.8 pg Normal 27-34 [facility] Comment on above: Performed By: #### C BC, 2275-4, 2730-8, 2132-04, 8, 01225- 6, FEPR, 45651-4, LIVR, 63392-0, RENAL, 3084-1 #### [facility] ([id number]) [address], [address] [place] [address] MCHC (RBC) [Mass/Vol] 34.4 g/dL Normal 32-36 [facility] Comment on above: Performed By: #### C BC, 2275-4, 2730-8, 2131-9, 2283-8, 54285- 6, FEPR, 59105-4, LIVR, 57237-7, RENAL, 3084-1 #### [facility] ([id number]) [address], [address] [place] [address] MCV (RBC) [Entitic vol] 89 fL Normal 80-100 [facility] Comment on above: Performed By: #### C BC, 6-4, 2730-8, 2131-9, 2283-8, 86598- 6, FEPR, 57944-1, LIVR, 81334-0, RENAL, 3084-1 #### [facility] ([id number]) [address], [address] [place] [address] Platelet mean volume (Bld) [Entitic vol] 7.4 fL Normal 7-12 [facility] Comment on above: Performed By: #### Ben BC, 2275-4, 2730-8, 2131-9, 2283-8, 79965- 6, FEPR, 52427-3, LIVR, 31434-6, RENAL, 3084-1 #### [facility] ([id number]) [address], [address] [place] [address] Platelets (Bld) [#/Vol] 145 10*3/uL Low 150-450 [facility] Comment on above: Performed By: #### Ben BC, 2275-4, 2730-8, 2131-9, 2283-8, 60645- 6, FEPR, 53230-1, LIVR, 84331-4, RENAL, 3084-1 #### [facility] ([id number]) [address], [address] [place] [address] RBC COUNT 4.08 X10E12/L Low 4.10-5.70 [facility] Comment on above: Performed By: #### C BC, 6-4, 2730-8, 2131-9, 2283-8, 62665- 6, FEPR, 42529-3, LIVR, 56525-5, RENAL, 3084-1 #### [facility] ([id number]) [address] [facility], [address] [place] [address] WBC (Bld) [#/Vol] 5.3 10*3/uL Normal 4.0-11.[address] [facility] Comment on above: Performed By: #### C BC, 6-4, 1-8, 2131-9, 2283-8, 63072- 6, FEPR, 15214-7, LIVR, 12898-8, RENAL, 3084-1 #### [facility] ([id number]) [address] [facility], [address] [place] [address] FERRITINon 10-20-2024 Ferritin [Mass/Vol] 67 ng/mL Normal 24-336 [facility] Comment on above: Performed By: #### C BC, 6-4, 2730-8, 2131-9, 2283-8, 80732- 6, FEPR, 07407-4, LIVR, 13302-4, RENAL, 3084-1 #### [facility] ([id number]) [address] [facility], [address] [place] [address] Folate [Mass/Vol]on 10-21-19 25 FOLIC ACID 24.5 ng/mL Normal >5.8 [facility] Comment on above: Result Comment: NEW REFERENCE RANGE Performed By: #### C BC, 6-4, 2730-8, 2131-9, 2283-8, 97943-7, FEPR, 00598-1, LIVR, 07325-5, RENAL, 3084-1 #### [facility] ([id number]) [address] [facility], [address] [place] [address] IRON PROFILEon 10-20-2024 Iron [Mass/Vol] 75 ug/dL Normal 50-212 [facility] Comment on above: Performed By: #### C BC, 6-4, 1-8, 2131-9, 2283-8, 31440- 6, FEPR, 79013-7, LIVR, 56517-5, RENAL, 3084-1 #### [facility] ([id number]) [address], [address] [place] [address] IRON BINDING 392 ug/dL Normal 250-425 [facility] Comment on above: Performed By: #### C BC, 2276-4, 2731-8, 2132-9, 2284-8, 86073- 6, FEPR, 31821-4, LIVR, 72803-5, RENAL, 3084-1 #### [facility] ([id number]) [address] [facility], [address] [place] [address] IRON SATURATION 19 % SATURATION Low 20-50 [facility] Comment on above: Performed By: #### C BC, 2276-4, 2731-8, 2132-9, 2284-8, 35022- 6, FEPR, 60208-6, LIVR, 65110-5, RENAL, 3084-1 #### [facility] ([id number]) [address] [facility], [address] [place] [address] LIVER PANELon 10-20-2024 Albumin [Mass/Vol] 4.3 g/dL Normal 3.2-5.[address] [facility] Comment on above: Performed By: #### U A #### [facility] ([id number]) [address] [facility], [address] [place] [address] ALP [Catalytic activity/Vol] 48 U/L Normal 39-130 [facility] Comment on above: Performed By: #### U A #### [facility] ([id number]) [address] [facility], [address] [place] [address] ALT [Catalytic activity/Vol] 28 U/L Normal 0-40 [facility] Comment on above: Performed By: #### U A #### [facility] ([id number]) [address] [facility], [address] [place] [address] AST [Catalytic activity/Vol] 33 U/L Normal 0-41 [facility] Comment on above: Performed By: #### U A #### [facility] ([id number]) [address], [address] [place] [address] Bilirubin [Mass/Vol] 0.6 mg/dL Normal 0.3-1.2 [facility] Comment on above: Performed By: #### U A #### [facility] ([id number]) [address], [address] [place] [address] Bilirubin.direct [Mass/Vol] 0.2 mg/dL Normal 0.0-0.4 [facility] Comment on above: Performed By: #### U A #### [facility] ([id number]) [address], [address] [place] [address] Protein [Mass/Vol] 6.7 g/dL Normal 6.0-8.[address] [facility] Comment on above: Performed By: #### U A #### [facility] ([id number]) [address], [address] [place] [address] Lipid 1996 panelon 5 Cholesterol [Mass/Vol] 119 mg/dL Low 150-200 [facility] Comment on above: Performed By: #### C BC, 2276-4, 2731-8, 2132-9, 2284-8, 87267- 6, FEPR, 81744-5, LIVR, 49621-5, RENAL, 3084-1 #### [facility] ([id number]) [address], [address] [place] [address] Cholesterol in HDL [Mass/Vol] 42 mg/dL Normal >39 [facility] Comment on above: Result Comment: HDL <40 mg/dL - High Risk HDL > or = 40mg/dL- Desirable HDL >60 mg/dL - Negative Risk Performed By: #### Ben ALVARADO, 2276-4, 1-8, 2-9, 2283-8, 96397-3, FEPR, 10222-1, LIVR, 99271-5, RENAL, 3084-1 #### [facility] ([id number]) [address], [address] [place] [address] Cholesterol in LDL [Mass/Vol] 52 mg/dL Normal <130 [facility] Comment on above: Result Comment: LDL <100 mg/dL - Desirable LDL >160 mg/dL - High Risk Performed By: #### Ben ALVARADO, 6-4, 1-8, 2131-9, 2283-8, 40679-7, FEPR, 56077-1, LIVR, 07385-8, RENAL, 3084-1 #### [facility] ([id number]) [address], [address] [place] [address] Cholesterol in VLDL [Mass/Vol] 25 mg/dL Normal 0-30 [facility] Comment on above: Performed By: #### Ben ALVARADO, 6-4, 1-8, 2-9, 2283-8, 76623- 6, FEPR, 44929-8, LIVR, 50994-0, RENAL, 3084-1 #### [facility] ([id number]) [address], [address] [place] [address] CHOLESTEROL:HDL 2.8 Normal 1.0-5.0 [facility] Comment on above: Performed By: #### Ben ALVARADO, 2276-4, 2731-8, 2132-9, 2284-8, 54174- 6, FEPR, 03670-4, LIVR, 81540-6, RENAL, 3084-1 #### [facility] ([id number]) [address], [address] [place] [address] Triglyceride [Mass/Vol] 125 mg/dL Normal 27-150 [facility] [facility] Comment on above: Performed By: #### C BC, 6-4, 8, 2132-04, 4-8, 41669- 6, FEPR, 04781-8, LIVR, 70641-8, RENAL, 3084-1 #### [facility] ([id number]) [address], [address] [place] [address] MAGNESIUMon 10-20-2024 Magnesium [Mass/Vol] 2.0 mg/dL Normal 1.8-2.6 [facility] Comment on above: Performed By: #### U A #### [facility] ([id number]) [address], [address] [place] [address] PROTEIN CREAT RATIOon 2024 RANDOM URINE PROTEIN 170 mg/L High <120 [facility] Comment on above: Performed By: #### U A #### [facility] ([id number]) [address], [address] [place] [address] U/PRO/BUILDING CUSTODIAN RATIO CALC 0.09 Normal <0.2 [facility] Comment on above: Result Comment: Neph rotic Syndrome is associated with ratios >3.5 Performed By: #### U A #### [facility] ([id number]) [address], [address] [place] [address] URINE CREATININE,RDM 199.09 mg/dL Normal [facility] Comment on above: Performed By: #### U A #### [facility] ([id number]) [address], [address] [place] [address] Parathyrin.intact [Mass/Vol] on 10-20-2024 PTH INTACT 48 pg/mL Normal 12-88 [facility] Comment on above: Performed By: #### C BC, 2275-4, 2731-8, 2132-9, 2284-8, 31890- 6, FEPR, 22538-8, LIVR, 39233-5, RENAL, 3084-1 #### [facility] ([id number]) [address] [place] [address] RENAL PANELon 10-20-2024 Anion gap [Moles/Vol] 13 mmol/L Normal 5-15 [facility] Comment on above: Performed By: #### U A #### [facility] ([id number]) [address] [address] [place] [address] Calcium [Mass/Vol] 9.2 mg/dL Normal 8.5-10.[address] [facility] Comment on above: Performed By: #### U A #### [facility] ([id number]) [address] [address] [place] [address] Chloride [Moles/Vol] 107 mmol/L Normal 98-109 [facility] Comment on above: Performed By: #### U A #### [facility] ([id number]) [address] [address] [place] [address] CO2 [Moles/Vol] 21 mmol/L Low 22-32 [facility] Comment on above: Performed By: #### U A #### [facility] ([id number]) [address] [address] [place] [address] Creatinine [Mass/Vol] 2.23 mg/dL High 0.60-1.30 [facility] Comment on above: Result Comment: METH OD TRACEABLE TO IDMS STANDARD Performed By: #### U A #### [facility] ([id number]) [address] [address] [place] [address] GFR/1.73 sq M.predicted among non-blacks MDRD (S/P/Bld) [Vol rate/Area] 31 mL/min/{1.73_m2} Low >59 [facility] Comment on above: Result Comment: Reported eGFR is based on the CKD-EPI 2020 equation that does not use a race coefficient. Performed By: #### U A #### [facility] ([id number]) [address], [address] [place] [address] Glucose [Mass/Vol] 96 mg/dL Normal 65-[address] [facility] Comment on above: Performed By: #### U A #### [facility] ([id number]) [address] [address] [place] [address] Phosphate [Mass/Vol] 4.7 mg/dL Normal 2.4-4.9 [facility] Comment on above: Performed By: #### U A #### [facility] ([id number]) [address] [place] [address] Potassium [Moles/Vol] 4.4 mmol/L Normal 3.5-5.0 [facility] Comment on above: Performed By: #### U A #### [facility] ([id number]) [address] [place] [address] Sodium [Moles/Vol] 141 mmol/L Normal 134-[address] [facility] Comment on above: Performed By: #### U A #### [facility] ([id number]) [address] [address] [place] [address] Urea nitrogen [Mass/Vol] 28 mg/dL High 5-27 [facility] Comment on above: Performed By: #### U A #### [facility] ([id number]) [address] [address] [place] [address] URIC ACIDon 10-20-2024 Urate [Mass/Vol] 6.2 mg/dL Normal 2.6-7.2 [facility] Comment on above: Performed By: #### U A #### [facility] ([id number]) [address] [place] [address] URINALYSISon 10-20-2024 Bilirubin Ql (U) Negative Normal NEG [facility] Comment on above: Performed By: #### U A #### [facility] ([id number]) [address] [place] [address] BLOOD/HGB Negative Normal NEG [facility] Comment on above: Performed By: #### U A #### [facility] ([id number]) [address] [place] [address] Color (U) YELLOW Normal YELLOW [facility] Comment on above: Performed By: #### U A #### [facility] ([id number]) [address] [place] [address] Glucose Ql (U) Negative Normal NEG [facility] Comment on above: Performed By: #### U A #### [facility] ([id number]) [address] [place] [address] Hyaline casts LM Ql (Urine sed) 4 /lpf High 0-2 [facility] Comment on above: Performed By: #### U A #### [facility] ([id number]) [address] [place] [address] Ketones Ql (U) Negative Normal NEG [facility] Comment on above: Performed By: #### U A #### [facility] ([id number]) [address] [place] [address] Leukocyte esterase Test strip Ql (U) Negative Normal NEG [facility] Comment on above: Performed By: #### U A #### [facility] ([id number]) [address] [place] [address] MUCOUS PRESENT Abnormal NONE [facility] Comment on above: Performed By: #### U A #### [facility] ([id number]) [address] [place] [address] Nitrite Ql (U) Negative Normal NEG [facility] Comment on above: Performed By: #### U A #### [facility] ([id number]) [address] [place] [address] pH (U) 6.0 [pH] Normal 5.0-8.5 [facility] Comment on above: Performed By: #### U A #### [facility] ([id number]) [address] [place] [address] Protein Ql (U) Trace Abnormal NEG [facility] Comment on above: Performed By: #### U A #### [facility] ([id number]) [address] [place] [address] R.B.CELLS 0 /hpf Normal 0-5 [facility] Comment on above: Performed By: #### U A #### [facility] ([id number]) [address] [place] [address] Specific gravity (U) [Rel density] 1.023 Normal 1.003-1.035 [facility] Comment on above: Performed By: #### U A #### [facility] ([id number]) [address] [place] [address] TURBIDITY CLEAR Normal CLEAR [facility] Comment on above: Performed By: #### U A #### [facility] ([id number]) [address] [place] [address] Urobilinogen (U) [Mass/Vol] mg/dL Normal <1.1 [facility] Comment on above: Performed By: #### U A #### [facility] ([id number]) [address] [place] [address] W.B.CELLS 2 /hpf Normal 0-5 [facility] Comment on above: Performed By: #### U A #### [facility] ([id number]) [address] [place] [address], [address] [place] [address] VITAMIN B12on 10-20-2024 Cobalamin (Vitamin B12) [Mass/Vol] 462 pg/mL Normal 180-914 [facility] Comment on above: Performed By: #### C BC, 6-4, 1-8, 2131-9, 2283-8, 25181- 6, FEPR, 76507-6, LIVR, 46768-4, RENAL, 3084-1 #### [facility] ([id number]) [address] [place] [address], [address] [place] [address] Vitamin D+Metabolites [Mass/ Vol]on 10-20-2024 VITAMIN D 25 HYD TOT 72.1 ng/mL Normal 30-100 [facility] Comment on above: Result Comment: Vitamin D status 25 [place] Vitamin D Deficiency <20 ng/mL Insufficiency 20-29 ng/mL Sufficiency 30-100 ng/mL Toxicity >100 ng/mL NOTE: A pediatric reference range has not been established by the cigarette machines mechanic of this kit. The [place] [employer] recommends a Vitamin D level of = or >20ng/mL in infants and children. Performed By: #### C BC, 6-4, 2730-8, 2131-9, 2283-8, 50299-9, FEPR, 28081-2, LIVR, 84166-9, RENAL, 3084-1 #### [facility] ([id number]) [address] [place] [address], [address] [place] [address] Office Visiton 10-13-2024 Follow-up visit [id number] Kel Castillo 1955 M Date Provider Department Center 10/13/2024 Katie-SARAH TOLLIVER SAMI Rasmussen Family History Problem Relation Age of Onset Diabetes Mother Family Status - Relation Status Age at Mother Level of Service:34638 NM OFFICE/OUTPATIENT ESTABLISHED MOD MDM 30 MIN Normal [facility] CNOVon 10-12-2024 CNOV Office Visit (NEIND4 ) SAMIR CASTILLO ([id number]) 1955 M Date Time Provider Department 10/12/24 [...] Ebony Trent DO 10/12/2024 2:47 PM Signed [facility] Follow up/ Established patient visit Individuals who were included in, or assisted with the encounter were: Samir Castillo Ebony Black DO Chief Complaint/Issues: Samir Castillo is a 69 year old male seen in the [facility] for: Memory loss Most [...] a coffee (more content not included)... Normal [facility] CNOVon 09-08-2024 CNOV Office Visit (NPTU10 ) SAMIR CASTILLO ([id number]) 1955 M Date Time Provider Department 09/08/24 8:00 AM MISTY POLO NPTU10 During your visit today, we recorded the following information about you: Misty Polo, PhD 09/10/2024 4:35 PM Signed [facility] Department of Neurology Section of Neuropsychology Neuropsychological Evaluation Report CONFIDENTIAL Patient: Samir Castillo Date of : 1955 Referred by: Ebony Black MD (Neurology) Education: 10 Handedness: R Language(s): Brazilian Date of Evaluation: 09/08/2024 Mr. Castillo is [...] no Problems with mother's /delivery: no Early SALES REPRESENTATIVE [employer] infection, high fever, significant childhood illness: no SCHOOL HISTORY: Years of education completed: 10; left school early because he did not like it. 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 One day will feel worried and next day will feel okay. Has been this way for a long time. Mental health treatment: He endorsed lo (more content not included)... Normal [facility] Lipid 1996 panelon 4 Cholesterol [Mass/Vol] 142 mg/dL Low 150 - 200 mg/dL [facility] Cholesterol in HDL [Mass/Vol] 43 mg/dL 39 - PINF mg/dL [facility] Comment on above: HDL <40 mg/dL - High Risk HDL > or = 40mg/dL- Desirable HDL >60 mg/dL - Negative Risk Cholesterol in HDL/Total Cholesterol [Mass ratio] 3.3 {ratio} 1.0 - 5.0 [facility] Comment on above: PERFORMED AT [facility] [address],[place] [address] Cholesterol in LDL [Mass/Vol] 75 mg/dL NINF - 130 mg/dL [facility] Comment on above: LDL <100 mg/dL - Desirable LDL >160 mg/dL - High Risk Cholesterol in VLDL [Mass/Vol] 24 mg/dL 0 - 30 mg/dL [facility] Interpretation and review of laboratory results Abnormal [facility] Triglyceride [Mass/Vol] 118 mg/dL 27 - 150 mg/dL [facility] Cholesterol [Mass/Vol] 142 mg/dL Low 150-200 [facility] Comment on above: Performed By: #### 2 4331-1 #### [facility] ([id number]) [address] [place] [address] Cholesterol in HDL [Mass/Vol] 43 mg/dL Normal >39 [facility] Comment on above: Result Comment: HDL <40 mg/dL - High Risk HDL > or = 40mg/dL- Desirable HDL >60 mg/dL - Negative Risk Performed By: #### 2 4331-1 #### [facility] ([id number]) [address] [place] [address] Cholesterol in LDL [Mass/Vol] 75 mg/dL Normal <130 [facility] Comment on above: Result Comment: LDL <100 mg/dL - Desirable LDL >160 mg/dL - High Risk Performed By: #### 2 4331-1 #### [facility] ([id number]) [address] [place] [address] Cholesterol in VLDL [Mass/Vol] 24 mg/dL Normal 0-30 [facility] Comment on above: Performed By: #### 2 4331-1 #### [facility] ([id number]) [address] [place] [address] CHOLESTEROL:HDL 3.3 Normal 1.0-5.0 [facility] Comment on above: Performed By: #### 2 4331-1 #### [facility] ([id number]) [address] [place] [address] Triglyceride [Mass/Vol] 118 mg/dL Normal 27-150 [facility] Comment on above: Performed By: #### 2 4331-1 #### [facility] ([id number]) [address] [place] [address] CT BRAIN WO IVCONon 05-12-[address] [...] NO CT EVIDENCE OF ACUTE INTRACRANIAL PROCESS. Martial Arts Instructor: TERRENCE Transcribe Date/Time: May 12 2024 3:59P Dictated by : FIDEL DAVIDSON MD This examination was interpreted and the report reviewed and electronically signed by: FIDEL DAVIDSON MD on May 12 2024 4:07PM EST [id number] Normal [facility] CT Head WO contraston 2023 IMPRESSION: NO CT EVIDENCE OF ACUTE INTRACRANIAL PROCESS. Martial Arts Instructor: TERRENCE Transcribe Date/Time: May 12 2024 3:59P Dictated by : FIDEL DAVIDSON MD This examination was interpreted and the report reviewed and electronically signed by: FIDEL DAVIDSON MD on May 12 2024 4:07PM EST [facility] * * *Final Report* * * [...] are unremarkable. Localizer images: No additional findings. [facility] Provider, Galileo Le - 05/12/2024 * [...] NO CT EVIDENCE OF ACUTE INTRACRANIAL PROCESS. Martial Arts Instructor: PSCB Transcribe Date/Time: May 12 2024 3:59P Dictated by : FIDEL DAVIDSON MD This examination was interpreted and the report reviewed and electronically signed by: FIDEL DAIVDSON MD on May 12 2024 4:07PM EST [facility] Radiology Study observation (narrative) [facility] CT Head WO contrastOrdered B y: [facility] Provider on 05-12-2024 [facility] CNOVon 05-04-2024 CNOV Office Visit (NEIND4 ) SAMIR CASTILLO ([id number]) 1955 M Date Time Provider Department 05/04/24 9:30 AM EBONY TRENT4 During your visit today, we recorded the following information about you: Pulse Blood pressure Weight Height 57/minute 138/63 80.5 kg 1.676 m Ebony Trent DO 05/04/2024 10:17 PM Signed [facility] Follow up/ Established patient visit Individuals who were included in, or assisted with the encounter were: Samir Castillo Ebony Black DO Chief Complaint/Issues: Samir Castillo is a 69 year old male seen in the [facility] for: Memory loss Most [...] over medications. 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 isos (more content not included)... Normal [facility] CT abdomen pelvis wo conon 0 04-09-2023 CT abdomen pelvis wo con [facility] [place] [address] [place] [address] Scan Report Signed Patient: Kel Castillo Jr MR#: [id number] : 1955 Acct:[id number] Age/Sex: 67 / M ADM Date: 04/09/23 Loc: ER Room: Type: [facility] ER Attending Dr: Copies to: Lucy [...] Damien Negrete M.D.04/09/2023 2:28 PM Dictation Location: [place] [address] Transcribed By: [facility] 04/09/23 1428 Dictated By: Damien Negrete DO 04/09/23 1422 Signed By: 04/09/23 1428 Normal [facility] Complete Blood Count Auto Di ffon 04-09-2023 Basophils (Bld) [#/Vol] 0.1 10*3/uL Normal 0.0-0.2 [facility] Comment on above: Result Comment: PERF ORMED BY: [place] [address] PATHOLOGIST RADIO INTERFERENCE TROUBLE SHOOTER TROY SIGALA M.D. Performed By: #### C BC #### [address] Basophils/100 WBC (Bld) 1.0 % Normal . [facility] Comment on above: Performed By: #### C BC #### [address] Eosinophils (Bld) [#/Vol] 0.2 10*3/uL Normal 0.0-0.45 [facility] Comment on above: Performed By: #### C BC #### [address] Eosinophils/100 WBC (Bld) 2.8 % Normal . [facility] Comment on above: Performed By: #### C BC #### [address] Erythrocyte distribution width (RBC) [Ratio] 14.5 % Normal 12.0-14.8 [facility] Comment on above: Performed By: #### C BC #### [address] Hematocrit (Bld) [Volume fraction] 39.2 % Normal 38.8-50.0 [facility] Comment on above: Performed By: #### C BC #### [address] Hemoglobin (Bld) [Mass/Vol] 13.0 g/dL Normal 13.0-17.0 [facility] Comment on above: Performed By: #### C BC #### [facility] [address] Lymphocytes (Bld) [#/Vol] 1.1 10*3/uL Normal 1.00-4.8 [facility] Comment on above: Performed By: #### C BC #### [address] Lymphocytes/100 WBC (Bld) 14.1 % Normal . [facility] Comment on above: Performed By: #### C BC #### [address] MCH (RBC) [Entitic mass] 30.4 pg Normal 27.5-35.2 [facility] Comment on above: Performed By: #### C BC #### [address] MCV (RBC) [Entitic vol] 91.5 fL Normal 83.5-101 [facility] Comment on above: Performed By: #### C BC #### [address] Mean Corpuscular HGB Conc 33.2 g/dL Normal 32.5-35.6 [facility] Comment on above: Performed By: #### C BC #### [address] Monocytes (Bld) [#/Vol] 0.5 10*3/uL Normal 0.0-0.8 [facility] Comment on above: Performed By: #### C BC #### [place] [address] [place] Monocytes/100 WBC (Bld) 16.97 % Normal 0.00-20.00 [facility] Comment on above: Performed By: #### C BC #### [address] Monocytes/100 WBC (Bld) 6.6 % Normal . [facility] Comment on above: Performed By: #### C BC #### [place] [address] [place] Neutrophils (Bld) [#/Vol] 5.9 10*3/uL Normal 1.8-7.7 [facility] Comment on above: Performed By: #### C BC #### [address] Neutrophils/100 WBC (Bld) 75.5 % Normal . [facility] Comment on above: Performed By: #### C BC #### [address] NRBC% 0.0 /100{WBC} Normal 0-0.5 [facility] Comment on above: Performed By: #### C BC #### [address] Platelet mean volume (Bld) [Entitic vol] 7.5 fL Normal 6.6-10.1 [facility] Comment on above: Performed By: #### C BC #### [address] Platelets (Bld) [#/Vol] 180 10*3/uL Normal 150-450 [facility] Comment on above: Performed By: #### C BC #### [address] RBC (Bld) [#/Vol] 4.29 10*6/uL Normal 3.90-5.60 [facility] Comment on above: Performed By: #### C BC #### [address] WBC (Bld) [#/Vol] 7.8 10*3/uL Normal 4.1-10.5 [facility] Comment on above: Performed By: #### C BC #### [address] Comprehensive Metabolic Pane noe 04-09-2023 Albumin [Mass/Vol] 4.3 g/dL Normal 3.5-5.7 [facility] Comment on above: Performed By: #### P TT, LIPASE, PT, CMP #### [place] [address] Albumin/Globulin [Mass ratio] 1.2 {ratio} Normal [facility] Comment on above: Performed By: #### P TT, LIPASE, PT, CMP #### [facility] [address] ALP [Catalytic activity/Vol] 105 U/L High 34-104 [facility] Comment on above: Performed By: #### P TT, LIPASE, PT, CMP #### [facility] [address] ALT [Catalytic activity/Vol] 61 U/L High 7-52 [facility] Comment on above: Performed By: #### P TT, LIPASE, PT, CMP #### [address] Anion gap [Moles/Vol] 12.5 mmol/L Normal 6.0-15.0 [facility] Comment on above: Performed By: #### P TT, LIPASE, PT, CMP #### [address] AST [Catalytic activity/Vol] 62 U/L High 13-39 [facility] Comment on above: Performed By: #### P TT, LIPASE, PT, CMP #### [address] Bilirubin [Mass/Vol] 0.8 mg/dL Normal 0.3-1.0 [facility] Comment on above: Performed By: #### P TT, LIPASE, PT, CMP #### [address] Calcium [Mass/Vol] 9.0 mg/dL Normal 8.6-10.3 [facility] Comment on above: Performed By: #### P TT, LIPASE, PT, CMP #### [address] Chloride [Moles/Vol] 107 mmol/L Normal 98-107 [facility] Comment on above: Performed By: #### P TT, LIPASE, PT, CMP #### [address] [address] [place] CO2 [Moles/Vol] 25.1 mmol/L Normal 21.0-31.0 [facility] Comment on above: Performed By: #### P TT, LIPASE, PT, CMP #### [address] Creatinine [Mass/Vol] 1.76 mg/dL High 0.70-1.30 [facility] Comment on above: Performed By: #### P TT, LIPASE, PT, CMP #### [place] [address] [place] Creatinine Clr Calc Pharmacy 40.17 [facility] Comment on above: Performed By: #### P TT, LIPASE, PT, CMP #### [place] [address] [place] GFR/1.73 sq M.predicted MDRD (S/P/Bld) [Vol rate/Area] 41.342 mL/min/{1.73_m2} [facility] Comment on above: Performed By: #### P TT, LIPASE, PT, CMP #### [address] Globulin (S) [Mass/Vol] 3.7 g/dL [facility] Comment on above: Performed By: #### P TT, LIPASE, PT, CMP #### [address] Glucose [Mass/Vol] 89 mg/dL Normal 70-100 [facility] Comment on above: Result Comment: [place] Glucose Reference Range is dependent on time and content of last meal. Glucose of more than 200 mg/dL in a nonstressed, ambulatory subject supports the diagnosis of Diabetes Mellitus. ADA recommended reference range Performed By: #### P TT, LIPASE, PT, CMP #### [address] Potassium [Moles/Vol] 4.6 mmol/L Normal 3.5-5.1 [facility] Comment on above: Performed By: #### P TT, LIPASE, PT, CMP #### [address] [place] [address] [place] Protein [Mass/Vol] 8.0 g/dL Normal 6.4-8.9 [facility] Comment on above: Performed By: #### P TT, LIPASE, PT, CMP #### [facility] [address] [place] [address] [place] Sodium [Moles/Vol] 140 mmol/L Normal 136-145 [facility] Comment on above: Performed By: #### P TT, LIPASE, PT, CMP #### [facility] [address] [place] [address] [place] Urea nitrogen [Mass/Vol] 25 mg/dL Normal 7-25 [facility] Comment on above: Performed By: #### P TT, LIPASE, PT, CMP #### [place] [address] [place] Dipstick and Microscopicon 0 04-09-2023 Appearance (U) Cloudy Critically abnormal Clear [facility] Comment on above: Order Comment: Name Collection Type:: Clean-Voided Midstream Performed By: #### A DDONUAPLUS #### [place] [address] [place] Bacteria,Urine None Seen Normal None Seen [facility] Comment on above: Order Comment: Name Collection Type:: Clean-Voided Midstream Performed By: #### A DDONUAPLUS #### [place] [address] [place] Bilirubin,Urine Negative Normal Negative [facility] Comment on above: Order Comment: Name Collection Type:: Clean-Voided Midstream Performed By: #### A DDONUAPLUS #### [place] [address] [place] Color (U) Yellow Normal Yellow [facility] Comment on above: Order Comment: Name Collection Type:: Clean-Voided Midstream Performed By: #### A DDONUAPLUS #### [facility] [address] [place] [address] [place] Glucose Ql (U) Normal Normal Normal [facility] Comment on above: Order Comment: Name Collection Type:: Clean-Voided Midstream Performed By: #### A DDONUAPLUS #### [place] [address] [place] Hyaline Casts,Urine None Seen Normal 0-8 [facility] Comment on above: Order Comment: Name Collection Type:: Clean-Voided Midstream Result Comment: PERF ORMED BY: [place] [address] PATHOLOGIST [employer]ENCE [employer]ER TROY SIGALA M.D. Performed By: #### A DDONUAPLUS #### [address] Ketones Ql (U) Negative Normal Negative [facility] Comment on above: Order Comment: Name Collection Type:: Clean-Voided Midstream Performed By: #### A DDONUAPLUS #### [address] Leukocyte esterase Test strip Ql (U) Negative Normal Negative [facility] Comment on above: Order Comment: Name Collection Type:: Clean-Voided Midstream Performed By: #### A DDONUAPLUS #### [place] [address] [place] Nitrite,Urine Negative Normal Negative [facility] Comment on above: Order Comment: Name Collection Type:: Clean-Voided Midstream Performed By: #### A DDONUAPLUS #### [place] [address] [place] Occult Blood,Urine Negative Normal Negative [facility] Comment on above: Order Comment: Name Collection Type:: Clean-Voided Midstream Result Comment: PERF ORMED BY: [place] [address] PATHOLOGIST RADIO INTERFERENCE TR[employer] SHO[employer]ER TROY SIGALA M.D. Performed By: #### A DDONUAPLUS #### [place] [address] [place] pH (U) 5.5 [pH] Normal 5.0-9.0 [facility] Comment on above: Order Comment: Name Collection Type:: Clean-Voided Midstream Performed By: #### A DDONUAPLUS #### [address] Protein,Urine Negative Normal Negative [facility] Comment on above: Order Comment: Name Collection Type:: Clean-Voided Midstream Performed By: #### A DDONUAPLUS #### [address] RBC LM.HPF (Urine sed) [#/Area] 0 /[HPF] Normal 0-4 [facility] Comment on above: Order Comment: Name Collection Type:: Clean-Voided Midstream Performed By: #### A DDONUAPLUS #### [address] Specificy [place],Urine 1.014 Normal 1.001-1.030 [facility] Comment on above: Order Comment: Name Collection Type:: Clean-Voided Midstream Performed By: #### A DDONUAPLUS #### [address] Squamous Epithelial Cell,Urine None Seen Normal 0-2 [facility] Comment on above: Order Comment: Name Collection Type:: Clean-Voided Midstream Performed By: #### A DDONUAPLUS #### [address] Urobilinogen,Urine Normal Normal Normal [facility] Comment on above: Order Comment: Name Collection Type:: Clean-Voided Midstream Performed By: #### A DDONUAPLUS #### [facility] [address] [place] [address] WBC LM.HPF (Urine sed) [#/Area] 0 /[HPF] Normal 0-4 [facility] Comment on above: Order Comment: Name Collection Type:: Clean-Voided Midstream Performed By: #### A DDONUAPLUS #### [address] Lipaseon 04-09-2023 Lipase [Catalytic activity/Vol] 92.0 U/L High 11.0-82.0 [facility] Comment on above: Result Comment: PERF ORMED BY: [address] [place] [address] PATHOLOGIST [employer] INTER[employer]ENCE [employer] SHOOTER TROY SIGALA M.D. Performed By: #### P TT, LIPASE, PT, CMP #### [address] Partial Thromboplastin Timeo n 04-09-2023 aPTT Coag (Bld) [Time] 30.9 s Normal 25.1-36.5 [facility] Comment on above: Result Comment: PERF ORMED BY: [place] [address] PATHOLOGIST [employer]IO INTERFERENCE TR[employer] SHOOTER TROY SIGALA M.D. Performed By: #### P TT, LIPASE, PT, CMP #### [address] Prothrombin Time INRon 04-09 INR Coag [...] #### P TT, LIPASE, PT, CMP #### [address] PT Coag (PPP) [Time] 11.9 s Normal 9.0-12.9 [facility] Comment on above: Performed By: #### P TT, LIPASE, PT, CMP #### [facility] [address] [place] [address] CBC AUTO DIFFon 07-27-2022 BASO # 0.1 103/ul Normal 0.0-0.1 [facility] Comment on above: Performed By: #### C BC #### [facility] [address] [address] [address] Hattie Newsome Basophils/100 WBC (Bld) 0.8 % Normal 0.2-2.0 [facility] Comment on above: Performed By: #### C BC #### [facility] [address] [address] [address] Hattie Newsome EO # 0.3 103/ul Normal 0.0-0.7 [facility] Comment on above: Performed By: #### C BC #### [facility] [address] [place] [address] Dr. Hattie Newsome Eosinophils/100 WBC (Bld) 3.2 % Normal 0.9-7.0 [facility] Comment on above: Performed By: #### C BC #### [facility] [address] [place] [address] Dr. Hattie Newsome Erythrocyte distribution width (RBC) [Ratio] 14.3 % Normal 11.0-15.0 [facility] Comment on above: Performed By: #### C BC #### [facility] [address] [place] [address] Dr. Hattie Newsome Hematocrit (Bld) [Volume fraction] 39.7 % Critically low 42.0-54.0 [facility] Comment on above: Performed By: #### C BC #### [facility] [address] [place] [address] Dr. Hattie Newsome Hemoglobin (Bld) [Mass/Vol] 13.0 g/dL Critically low 14.0-18.0 [facility] Comment on above: Performed By: #### C BC #### [facility] [address] [place] [address] Dr. Hattie Newsome IG # 0.06 10e3/ul Critically high 0.00-0.03 [facility] Comment on above: Performed By: #### C BC #### [facility] [address] [place] [address] Dr. Hattie Newsome IG % 0.8 % Critically high 0.0-0.5 [facility] Comment on above: Performed By: #### C BC #### [facility] [address] [place] [address] Dr. Hattie Newsome LYMPH # 1.3 103/ul Normal 1.2-3.8 [facility] Comment on above: Performed By: #### C BC #### [facility] [address] [place] [address] Dr. Hattie Newsome Lymphocytes/100 WBC (Bld) 16.8 % Critically low 20.5-60.0 [facility] Comment on above: Performed By: #### C BC #### [facility] [address] [place] [address] Dr. Hattie Newsome MANUAL DIFF REQ NO Normal [facility] Comment on above: Performed By: #### C BC #### [facility] [address] [place] [address] Dr. Hattie Newsome MCH (RBC) [Entitic mass] 30.5 pg Normal 25.9-34.0 [facility] Comment on above: Performed By: #### C BC #### [facility] [address] [place] [address] Dr. Hattie Newsome MCHC (RBC) [Mass/Vol] 32.7 g/dL Normal 29.9-35.2 [facility] Comment on above: Performed By: #### C BC #### [facility] [address] [place] [address] Dr. Hattie Newsome MCV (RBC) [Entitic vol] 93.2 fL Normal 80.0-94.0 [facility] Comment on above: Performed By: #### C BC #### [facility] [address] [place] [address] Dr. Hattie Newsome MONO # 0.5 103/ul Normal 0.3-0.8 [facility] Comment on above: Performed By: #### C BC #### [facility] [address] [place] [address] Dr. Hattie Newsome Monocytes/100 WBC (Bld) 7.0 % Normal 1.7-12.0 [facility] Comment on above: Performed By: #### C BC #### [facility] [address] [place] [address] Dr. Hattie Newsome NEUT # 5.5 103/ul Normal 1.4-6.5 [facility] Comment on above: Performed By: #### C BC #### [facility] [address] [address] [address] Hattie Newsome Neutrophils/100 WBC (Bld) 71.4 % Normal 43.0-75.0 [facility] Comment on above: Performed By: #### C BC #### [facility] [address] [address] [address] Hattie Newsome Platelet mean volume (Bld) [Entitic vol] 9.4 fL Critically low 9.5-13.5 [facility] Comment on above: Performed By: #### C BC #### [facility] [address] [address] [address] Hattie Newsome PLT 169 103/ul Normal 150-450 [facility] Comment on above: Performed By: #### C BC #### [facility] [address] [place] [address] Dr. Hattie Newsome RBC 4.26 106/ul Critically low 4.70-6.10 [facility] Comment on above: Performed By: #### C BC #### [facility] [address] [place] [address] Dr. Hattie Newsome WBC 7.7 103/ul Normal 4.0-11.0 [facility] Comment on above: Performed By: #### C BC #### [facility] [address] [place] [address] Dr. Hattie Newsome LIPID PROFILEon 07-27-2022 CHOL-HDL RATIO NORM SEE BELOW Normal [facility] Comment on above: Result Comment: 3.3 - 4.4 LOW RISK 4.4 - 7.1 AVERAGE RISK 7.1 - 11.0 MODERATE RISK >11.0 HIGH RISK Performed By: #### L IPID #### [facility] [address] [place] [address] Dr. Hattie Newsome Cholesterol [Mass/Vol] 131 mg/dL Normal <=200 [facility] Comment on above: Performed By: #### L IPID #### [facility] [address] [place] [address] Dr. Hattie Newsome Cholesterol in HDL [Mass/Vol] 40 mg/dL Normal 40-60 [facility] Comment on above: Performed By: #### L IPID #### [facility] [address] [address] [address] Hattie Newsome Cholesterol in LDL [Mass/Vol] 64.6 mg/dL Normal [facility] Comment on above: Performed By: #### L IPID #### [facility] [address] [address] [address] Hattie Newsome Cholesterol.total/C holesterol in HDL [Mass ratio] 3.3 {ratio} Normal [facility] Comment on above: Performed By: #### L IPID #### [facility] [address] [address] [address] Hattie Newsome HDL NORMAL > or = 60 mg/dl - LO W CARDIOVASCULAR RISK <40 mg/dl - HIGH CARDIOVASCULAR RISK Normal [facility] Comment on above: Performed By: #### L IPID #### [facility] [address] [place] [address] Dr. Hattie Newsome LDL CALC NORMAL SEE BELOW Normal [facility] Comment on above: Result Comment: <100 mg/dl OPTIMAL 100 - 129 mg/dl NEAR OR ABOVE OPTIMAL 130 - 159 mg/dl BORDERLINE HIGH 160 - 189 mg/dl HIGH >190 mg/dl VERY HIGH Performed By: #### L IPID #### [facility] [address] [place] [address] Dr. Hattie Newsome Triglyceride [Mass/Vol] 132 mg/dL Normal <=150 [facility] Comment on above: Performed By: #### L IPID #### [facility] [address] [address] [address] Hattie Newsome VLDL CALC 26.4 mg/dL Normal [facility] Comment on above: Performed By: #### L IPID #### [facility] [address] [place] [address] Dr. Hattie Newsome PARATHYROID HORMONE- RELATED PEPTIDEon 07-15-2022 PTHrP (PTH-Related Peptide) <2.0 Normal [facility] Comment on above: Result Comment: This test was developed and its performance characteristics determined by [employer]. It has not been cleared or approved [...] laboratory. Performed By: #### P THP #### [facility] [address] [place] [address] Dr. Hattie Newsome CBC AUTO DIFFon 07-07-2022 BASO # 0.1 103/ul Normal 0.0-0.1 [facility] Comment on above: Performed By: #### U BLANCA, CMP, MG #### [facility] [address] [place] [address] Dr. Hattie Newsome Basophils/100 WBC (Bld) 0.9 % Normal 0.2-2.0 [facility] Comment on above: Performed By: #### U BLANCA, CMP, MG #### [facility] [address] [place] [address] Dr. Hattie Newsome EO # 0.2 103/ul Normal 0.0-0.7 [facility] Comment on above: Performed By: #### U BLANCA, CMP, MG #### [facility] [address] [place] [address] Dr. Hattie Newsome Eosinophils/100 WBC (Bld) 3.4 % Normal 0.9-7.0 [facility] Comment on above: Performed By: #### U BLANCA, CMP, MG #### [facility] [address] [place] [address] Dr. Hattie Newsome Erythrocyte distribution width (RBC) [Ratio] 14.5 % Normal 11.0-15.0 [facility] Comment on above: Performed By: #### U BLANCA, CMP, MG #### [facility] [address] [place] [address] Dr. Hattie Newsome Hematocrit (Bld) [Volume fraction] 40.1 % Critically low 42.0-54.0 [facility] Comment on above: Performed By: #### U BLANCA, CMP, MG #### [facility] [address] [address] [address] Hattie Newsome Hemoglobin (Bld) [Mass/Vol] 13.6 g/dL Critically low 14.0-18.0 [facility] Comment on above: Performed By: #### U BLANCA, CMP, MG #### [facility] [address] [address] [address] Hattie Newsome IG # 0.04 10e3/ul Critically high 0.00-0.03 [facility] Comment on above: Performed By: #### U BLANCA, CMP, MG #### [facility] [address] [address] [address] Hattie Newsome IG % 0.6 % Critically high 0.0-0.5 [facility] Comment on above: Performed By: #### U BLANCA, CMP, MG #### [facility] [address] [place] [address] Dr. Hattie Newsome LYMPH # 0.9 103/ul Critically low 1.2-3.[address] [facility] Comment on above: Performed By: #### U BLANCA, CMP, MG #### [facility] [address] [address] [address] Hattie Newsome Lymphocytes/100 WBC (Bld) 13.1 % Critically low 20.5-60.0 [facility] Comment on above: Performed By: #### U BLANCA, CMP, MG #### [facility] [address] [address] [address] Hattie Newsome MANUAL DIFF REQ NO Normal [facility] Comment on above: Performed By: #### U BLANCA, CMP, MG #### [facility] [address] [address] [address] Hattie Newsome MCH (RBC) [Entitic mass] 30.9 pg Normal 25.9-34.0 [facility] Comment on above: Performed By: #### U BLANCA, CMP, MG #### [facility] [address] [address] [address] Hattie Newsome MCHC (RBC) [Mass/Vol] 33.9 g/dL Normal 29.9-35.2 [facility] Comment on above: Performed By: #### U BLANCA, CMP, MG #### [facility] [address] [place] [address] Dr. Hattie Newsome MCV (RBC) [Entitic vol] 91.1 fL Normal 80.0-94.0 [facility] Comment on above: Performed By: #### U BLANCA, CMP, MG #### [facility] [address] [place] [address] Dr. Hattie Newsome MONO # 0.3 103/ul Normal 0.3-0.8 [facility] Comment on above: Performed By: #### U BLANCA, CMP, MG #### [facility] [address] [place] [address] Dr. Hattie Newsome Monocytes/100 WBC (Bld) 5.1 % Normal 1.7-12.0 [facility] Comment on above: Performed By: #### U BLANCA, CMP, MG #### [facility] [address] [place] [address] Dr. Hattie Newsome NEUT # 5.0 103/ul Normal 1.4-6.5 [facility] Comment on above: Performed By: #### U BLANCA, CMP, MG #### [facility] [address] [place] [address] Dr. Htatie Newsome Neutrophils/100 WBC (Bld) 76.9 % Critically high 43.0-75.0 [facility] Comment on above: Performed By: #### U BLANCA, CMP, MG #### [facility] [address] [place] [address] Dr. Hattie Newsome Platelet mean volume (Bld) [Entitic vol] 9.0 fL Critically low 9.5-13.5 [facility] Comment on above: Performed By: #### U BLANCA, CMP, MG #### [facility] [address] [place] [address] Dr. Hattie Newsome PLT 160 103/ul Normal 150-450 [facility] Comment on above: Performed By: #### U BLANCA, CMP, MG #### [facility] [address] [place] [address] Dr. Hattie Newsome RBC 4.40 106/ul Critically low 4.70-6.10 [facility] Comment on above: Performed By: #### U BLANCA, CMP, MG #### [facility] [address] [address] [address] Hattie Newsome WBC 6.5 103/ul Normal 4.0-11.0 [facility] Comment on above: Performed By: #### U BLANCA, CMP, MG #### [facility] [address] [address] [address] Hattie Newsome MAGNESIUMon 07-07-2022 Magnesium [Mass/Vol] 1.8 mg/dL Normal 1.8-2.4 [facility] Comment on above: Performed By: #### U BLANCA, CMP, MG #### [facility] [address] [place] [address] Dr. Hattie Newsome PROF 14(COMP METB)on 022 Albumin [Mass/Vol] 3.9 g/dL Normal 3.4-5.0 [facility] Comment on above: Performed By: #### U BLANCA, CMP, MG #### [facility] [address] [address] [address] Hattie Newsome Albumin/Globulin [Mass ratio] 1.0 {ratio} Normal [facility] Comment on above: Performed By: #### U BLANCA, CMP, MG #### [facility] [address] [place] [address] Dr. Hattie Newsome ALP [Catalytic activity/Vol] 136 U/L Critically high 46-116 [facility] Comment on above: Performed By: #### U BLANCA, CMP, MG #### [facility] [address] [address] [address] Hattie Newsome ALT [Catalytic activity/Vol] 122 U/L Critically high 16-63 [facility] Comment on above: Performed By: #### U BLANCA, CMP, MG #### [facility] [address] [address] [address] Hattie Newsome Anion gap [Moles/Vol] 12.4 mmol/L Normal [facility] Comment on above: Performed By: #### U BLANCA, CMP, MG #### [facility] [address] [address] [address] Hattie Newsome AST [Catalytic activity/Vol] 72 U/L Critically high 15-37 [facility] Comment on above: Performed By: #### U BLANCA, CMP, MG #### [facility] [address] [place] [address] Dr. Hattie Newsome Bilirubin [Mass/Vol] 0.5 mg/dL Normal 0.2-1.0 [facility] Comment on above: Performed By: #### U BLANCA, CMP, MG #### [facility] [address] [place] [address] Dr. Hattie Newsome Calcium [Mass/Vol] 9.1 mg/dL Normal 8.5-10.1 [facility] Comment on above: Performed By: #### U BLANCA, CMP, MG #### [facility] [address] [place] [address] Dr. Hattie Newsome Chloride [Moles/Vol] 106 mmol/L Normal 98-107 [facility] Comment on above: Performed By: #### U BLANCA, CMP, MG #### [facility] [address] [place] [address] Dr. Hattie Newsome CO2 [Moles/Vol] 25.9 mmol/L Normal 21.0-32.0 [facility] Comment on above: Performed By: #### U BLANCA, CMP, MG #### [facility] [address] [place] [address] Dr. Hattie Newsome Creatinine [Mass/Vol] 1.54 mg/dL Critically high 0.70-1.30 [facility] Comment on above: Performed By: #### U BLANCA, CMP, MG #### [facility] [address] [place] [address] Dr. Hattie Newsome EGFR-AF LIBYAN 55 mL/min/1.73m2 Critically low >=60 [facility] Comment on above: Performed By: #### U BLANCA, CMP, MG #### [facility] [address] [place] [address] Dr. Hattie Newsome EGFR-NON AF LIBYAN 45 mL/min/1.73m2 Critically low >=60 [facility] Comment on above: Performed By: #### U BLANCA, CMP, MG #### [facility] [address] [address] [address] Hattie Newsome Globulin (S) [Mass/Vol] 4.0 g/dL Normal [facility] Comment on above: Performed By: #### U BLANCA, CMP, MG #### [facility] [address] [address] [address] Hattie Newsome Glucose [Mass/Vol] 104 mg/dL Normal 74-106 [facility] Comment on above: Performed By: #### U BLANCA, CMP, MG #### [facility] [address] [place] [address] Dr. Hattie Newsome Potassium [Moles/Vol] 4.3 mmol/L Normal 3.5-5.1 [facility] Comment on above: Performed By: #### U BLANCA, CMP, MG #### [facility] [address] [place] [address] Dr. Hattie Newsome Protein [Mass/Vol] 7.9 g/dL Normal 6.4-8.2 [facility] Comment on above: Performed By: #### U BLANCA, CMP, MG #### [facility] [address] [place] [address] Dr. Hattie Newsome Sodium [Moles/Vol] 140 mmol/L Normal 136-145 [facility] Comment on above: Performed By: #### U BLANCA, CMP, MG #### [facility] [address] [place] [address] Dr. Hattie Newsome Urea nitrogen [Mass/Vol] 14.0 mg/dL Normal 7.0-18.0 [facility] Comment on above: Performed By: #### U BLANCA, CMP, MG #### [facility] [address] [place] [address] Dr. Hattie Newsome Urea nitrogen/Creatinine [Mass ratio] 9.1 mg/mg Normal [facility] Comment on above: Performed By: #### U BLANCA, CMP, MG #### [facility] [address] [place] [address] Dr. Hattie Newsome UA RANDOMon 07-07-2022 Bilirubin Ql (U) Negative Normal NEGATIVE [facility] Comment on above: Performed By: #### U A #### [facility] [address] [place] [address] Dr. Hattie Newsome Clarity (U) CLEAR Normal CLEAR [facility] Comment on above: Performed By: #### U A #### [facility] [address] [place] [address] Dr. Hattie Newsome Color (U) YELLOW Normal YELLOW [facility] Comment on above: Performed By: #### U A #### [facility] [address] [place] [address] Dr. Hattie Newsome Glucose Ql (U) Negative Normal NEGATIVE [facility] Comment on above: Performed By: #### U A #### [facility] [address] [place] [address] Dr. Hattie Newsome Hemoglobin Ql (U) Negative Normal NEGATIVE [facility] Comment on above: Performed By: #### U A #### [facility] [address] [place] [address] Dr. Hattie Newsome Ketones Ql (U) Negative Normal NEGATIVE [facility] Comment on above: Performed By: #### U A #### [facility] [address] [place] [address] Dr. Hattie Newsome LEUKOCYTES Negative Normal NEGATIVE [facility] Comment on above: Performed By: #### U A #### [facility] [address] [place] [address] Dr. Hattie Newsome Nitrite Ql (U) Negative Normal NEGATIVE [facility] Comment on above: Performed By: #### U A #### [facility] [address] [place] [address] Dr. Hattie Newsome pH (U) 5.5 [pH] Normal 5-9 [facility] Comment on above: Performed By: #### U A #### [facility] [address] [place] [address] Dr. Hattie Newsome SPEC GRAVITY >=1.030 Abnormal 1.005-<=1.025 [facility] Comment on above: Performed By: #### U A #### [facility] [address] [place] [address] Dr. Hattie Newsome UA PROTEIN Negative Normal NEGATIVE/ TRACE [facility] Comment on above: Performed By: #### U A #### [facility] [address] [place] [address] Dr. Hattie Newsome Urobilinogen Qn (U) 1.0 {Xavier'U}/dL Normal 0.2 - 1. 0 [facility] Comment on above: Performed By: #### U A #### [facility] [address] [place] [address] Dr. Hattie Newsome URIC ACID SERUMon 07-07-2022 Urate [Mass/Vol] 6.8 mg/dL Normal 3.5-7.2 [facility] Comment on above: Performed By: #### U BLANCA, CMP, MG #### [facility] [address] [place] [address] Dr. Hattie Newsome URINE T PROTEIN CREAT RATIOo n 07-07-2022 Protein (U) [Mass/Vol] 27.5 mg/dL Critically high <=12.0 [facility] Comment on above: Performed By: #### U RTPCR #### [facility] [address] [place] [address] Dr. Hattie Newsome UR PROT CREAT RAT 0.15 Normal The [facility] Comment on above: Performed By: #### U RTPCR #### [facility] [address] [place] [address] Dr. Hattie Newsome URINE CREAT 187.29 mg/dL Normal 20.00-300.00 [facility] Comment on above: Performed By: #### U RTPCR #### [facility] [address] [place] [address] Dr. Hattie Newsome VITAMIN D 25 OHon 07-07-2022 VIT D 25-OH 81.5 ng/mL Normal [facility] Comment on above: Performed By: #### V ITAD #### [facility] [address] [place], [place] [id number] Dr. Hattie Newsome VIT D RANGES SEE BELOW Normal [facility] Comment on above: Result Comment: <20 ng/mL Vit D deficient 20 - <30 ng/mL Vit D insufficient 30 - 100 ng/mL Vit D sufficient >100 ng/mL Potential Toxicity Performed By: #### V ITAD #### [facility] [address] [place] [address] Dr. Hattie Newsome ECHOCARDIO M/2D COMPLETEon 0 02-21-2022 ECHOCARDIO M/2D COMPLETE Patient: KEL CASTILLO Exam Date: 02/21/2022 : 1955 Gender:M Ordering : DR SARAH TOLLIVER M.D. Admission #: [id number] Family : Order #: [id number] CLICK HERE TO VIEW EXAM ECHOCARDIOGRAM REPORT [...] Yepez M.D. on 02/21/2022 at 16:31 Normal [facility] No Panel Informationon 02-08 [facility] BASIC METABOLIC PANELon - Calcium [Mass/Vol] 9.2 mg/dL Normal 8.6-10.3 [facility] Comment on above: Order Comment: No: D o not add to previous draw Performed By: #### 0 0071, 84650 #### [facility] [address] [place] [address], [place] Chloride [Moles/Vol] 108 mmol/L High 98-107 [facility] Comment on above: Order Comment: No: D o not add to previous draw Performed By: #### 0 0071, 57005 #### [facility] [address] [place] [address], [place] CO2 [Moles/Vol] 26 mmol/L Normal 21-31 [facility] Comment on above: Order Comment: No: D o not add to previous draw Performed By: #### 0 0071, 47919 #### [facility] [address] [place] [address], [place] Creatinine [Mass/Vol] 1.64 mg/dL High 0.70-1.30 [facility] Comment on above: Order Comment: No: D o not add to previous draw Performed By: #### 0 0071, 08102 #### [facility] [address] [place] [address], [place] GFR/1.73 sq M predicted among blacks MDRD (S/P/Bld) [Vol rate/Area] 51 ml/min/1.73sq m Abnormal >60 [facility] Comment on above: Order Comment: No: D o not add to previous draw Performed By: #### 0 0071, 54078 #### [facility] [address] [place] [address], [place] GFR/1.73 sq M predicted among non-blacks MDRD (S/P/Bld) [Vol rate/Area] 42 ml/min/1.73sq m Abnormal >60 [facility] Comment on above: Order Comment: No: D o not add to previous draw Performed By: #### 0 0071, 70195 #### [facility] [address] [place] [id number], [facility] Glucose [Mass/Vol] 100 mg/dL Normal 70-100 [facility] Comment on above: Order Comment: No: D o not add to previous draw Performed By: #### 0 0071, 82261 #### [facility] [address] [place] [id number], [facility] Potassium [Moles/Vol] 4.5 mmol/L Normal 3.5-5.1 [facility] Comment on above: Order Comment: No: D o not add to previous draw Performed By: #### 0 0071, 22091 #### [facility] [address] [place] [address], [facility] Sodium [Moles/Vol] 139 mmol/L Normal 136-145 [facility] Comment on above: Order Comment: No: D o not add to previous draw Performed By: #### 0 0071, 35043 #### [facility] [address] [place] [id number], [facility] Urea nitrogen [Mass/Vol] 15 mg/dL Normal 7-25 [facility] Comment on above: Order Comment: No: D o not add to previous draw Performed By: #### 0 0071, 34655 #### [facility] [address] [place] [id number], [facility] CBC W/DIFFon 10-08-2019 ABS BASOPHILS 0.1 10*3/uL Normal 0.0-0.2 [facility] Comment on above: Order Comment: No: D o not add to previous draw Performed By: #### 0 0071, 85315 #### [facility] [address] [place] [address], [facility] ABS IMM GRANS 0.1 10*3/uL Normal 0.0-0.2 [facility] Comment on above: Order Comment: No: D o not add to previous draw Performed By: #### 0 0071, 08954 #### [facility] [address] [facility] [place] [address], [facility] ABS NEUTROPHILS 5.1 10*3/uL Normal 1.6-7.6 [facility] Comment on above: Order Comment: No: D o not add to previous draw Performed By: #### 0 0071, 94008 #### [facility] [address] [facility] [place] [address], [facility] Basophils/100 WBC (Bld) 0.8 % Normal 0.0-1.0 [facility] Comment on above: Order Comment: No: D o not add to previous draw Performed By: #### 0 0071, 81156 #### [facility] [address] [place] [address], [facility] Eosinophils (Bld) [#/Vol] 0.3 10*3/uL Normal 0.0-0.5 [facility] Comment on above: Order Comment: No: D o not add to previous draw Performed By: #### 0 0071, 77956 #### [facility] [address] [facility] [place] [address], [facility] Eosinophils/100 WBC (Bld) 3.9 % Normal 0.0-6.0 [facility] Comment on above: Order Comment: No: D o not add to previous draw Performed By: #### 0 0071, 92004 #### [facility] [address] [place] [address], [facility] Erythrocyte distribution width (RBC) [Ratio] 14.3 % Normal 11.5-15.0 [facility] Comment on above: Order Comment: No: D o not add to previous draw Performed By: #### 0 0071, 62360 #### [facility] [address] [place] [id number], [facility] Hematocrit (Bld) [Volume fraction] 39.0 % Normal 39.0-50.0 [facility] Comment on above: Order Comment: No: D o not add to previous draw Performed By: #### 0 0071, 09057 #### [facility] [address] [place] [address], [facility] Hemoglobin (Bld) [Mass/Vol] 12.3 g/dL Low 13.0-17.0 [facility] Comment on above: Order Comment: No: D o not add to previous draw Performed By: #### 0 0071, 18059 #### [facility] [address] [place] [id number], [facility] IMMATURE GRANS 0.8 % Normal 0.0-1.0 [facility] Comment on above: Order Comment: No: D o not add to previous draw Performed By: #### 0 0071, 32969 #### [facility] [address] [facility] [place] [address], [facility] Lymphocytes (Bld) [#/Vol] 1.2 10*3/uL Normal 1.2-4.0 [facility] Comment on above: Order Comment: No: D o not add to previous draw Performed By: #### 0 0071, 76434 #### [facility] [address] [facility] [place] [address], [facility] Lymphocytes/100 WBC (Bld) 16.1 % Low 20.0-45.0 [facility] Comment on above: Order Comment: No: D o not add to previous draw Performed By: #### 0 0071, 60539 #### [facility] [address] [place] [id number], [facility] MCH (RBC) [Entitic mass] 29.9 pg Normal 27.0-33.0 [facility] Comment on above: Order Comment: No: D o not add to previous draw Performed By: #### 0 0071, 72224 #### [facility] [address] [place] [address], [facility] MCHC (RBC) [Mass/Vol] 31.5 g/dL Low 32.0-35.0 [facility] Comment on above: Order Comment: No: D o not add to previous draw Performed By: #### 0 0071, 57210 #### [facility] [address] MCV (RBC) [Entitic vol] 94.9 fL Normal 82.0-98.0 [facility] Comment on above: Order Comment: No: D o not add to previous draw Performed By: #### 0 0071, 00889 #### [facility] [address] [facility] [place] [address], [facility] Monocytes (Bld) [#/Vol] 0.5 10*3/uL Normal 0.1-1.0 [facility] Comment on above: Order Comment: No: D o not add to previous draw Performed By: #### 0 0071, 73815 #### [facility] [address] [place] [address], [facility] MONOS 6.3 % Normal 5.0-12.0 [facility] Comment on above: Order Comment: No: D o not add to previous draw Performed By: #### 0 0071, 90949 #### [facility] [address] [place] [address], [facility] Neutrophils/100 WBC (Bld) 72.1 % High 40.0-72.0 [facility] Comment on above: Order Comment: No: D o not add to previous draw Performed By: #### 0 0071, 85001 #### [facility] [address] [place] [address], [facility] Nucleated RBC/100 WBC (Bld) [Ratio] 0 % Normal 0-0 [facility] Comment on above: Order Comment: No: D o not add to previous draw Performed By: #### 0 0071, 28930 #### [facility] [address] [place] [address], [facility] PLAT CNT 168 10*3/uL Normal 150-400 [facility] Comment on above: Order Comment: No: D o not add to previous draw Performed By: #### 0 0071, 91128 #### [facility] [address] [place] [address], [facility] RBC (Bld) [#/Vol] 4.11 10*6/uL Low 4.20-5.70 [facility] Comment on above: Order Comment: No: D o not add to previous draw Performed By: #### 0 0071, 92912 #### [facility] [address] [place] [address], [facility] WBC (Bld) [#/Vol] 7.13 10*3/uL Normal 4.00-10.60 [facility] Comment on above: Order Comment: No: D o not add to previous draw Performed By: #### 0 0071, 18176 #### [facility] [address] [place] [address], [facility] US ABDOMEN LIMITED 020 US ABDOMEN LIMITED [facility] Department of Radiology [address] [place] [id number] ======== Patient Name: KEL CASTILLO : 1955 Sex: M Age: Race: White Pt. Location: [id number] Patient Status: I Ordered Date: 10/08/2019 9:30:00 [...] collection. Electronically signed: Brandy Wilson. Transcribed by: [email or web address], User Resident: BRANDY WILSON Electronically Signed by: BRANDY WILSON @ 10/08/2019 10:13 AM I personally read this/these film(s) with this resident Normal [facility] Comment on above: Order Comment: No: D o not add to previous draw BASIC METABOLIC PANELon 09-13 Calcium [Mass/Vol] 8.7 mg/dL Normal 8.6-10.3 [facility] Comment on above: Order Comment: No: D o not add to previous draw Performed By: #### 0 0071, 81045 #### [facility] [address] [place] [address], [facility] Chloride [Moles/Vol] 111 mmol/L High 98-107 [facility] Comment on above: Order Comment: No: D o not add to previous draw Performed By: #### 0 0071, 43319 #### [facility] [address] [place] [address], [place] CO2 [Moles/Vol] 28 mmol/L Normal 21-31 [facility] Comment on above: Order Comment: No: D o not add to previous draw Performed By: #### 0 0071, 13297 #### [facility] [address] [place] [address], [place] Creatinine [Mass/Vol] 1.59 mg/dL High 0.70-1.30 [facility] Comment on above: Order Comment: No: D o not add to previous draw Performed By: #### 0 0071, 54033 #### [facility] [address] [place] [address], [place] GFR/1.73 sq M predicted among blacks MDRD (S/P/Bld) [Vol rate/Area] 53 ml/min/1.73sq m Abnormal >60 [facility] Comment on above: Order Comment: No: D o not add to previous draw Performed By: #### 0 0071, 16556 #### [facility] [address] [place] [address], [place] GFR/1.73 sq M predicted among non-blacks MDRD (S/P/Bld) [Vol rate/Area] 44 ml/min/1.73sq m Abnormal >60 [facility] Comment on above: Order Comment: No: D o not add to previous draw Performed By: #### 0 0071, 70524 #### [facility] [address] [place] [address], [place] Glucose [Mass/Vol] 99 mg/dL Normal 70-100 [facility] Comment on above: Order Comment: No: D o not add to previous draw Performed By: #### 0 0071, 10345 #### [facility] [address] [place] [address], [place] Potassium [Moles/Vol] 4.2 mmol/L Normal 3.5-5.1 [facility] Comment on above: Order Comment: No: D o not add to previous draw Performed By: #### 0 0071, 07396 #### [facility] [address] Sodium [Moles/Vol] 142 mmol/L Normal 136-145 [facility] Comment on above: Order Comment: No: D o not add to previous draw Performed By: #### 0 0071, 42655 #### [facility] [address] Urea nitrogen [Mass/Vol] 16 mg/dL Normal 7-25 [facility] Comment on above: Order Comment: No: D o not add to previous draw Performed By: #### 0 0071, 35050 #### [facility] [address] Cardiovascular Lab Reporton 10-07-2019 Cardiovascular Lab Report [facility] #: [id number] Department of Physician: Shaji Juarez M.D. Division of Service Date: 10/07/2019 Cardiology Birthdate: 1955 Adult Cardiovascular Room #: [id number] [facility] [address] [place] [address] Cardiovascular Laboratory Report FINAL IMPRESSIONS: 1. Severe 3-vessel mechoopda coronary artery disease. 2. A 2/3 bypass [...] on the anatomic and fluoroscopic landmarks. A 6-Urdu 11 cm sheath was inserted. Limited femoral [...] Tolliver M.D. Date Trans: 10/07/2019 02:55 P/mmo [id number] cc: Priyank Hendrickson M.D. [address] [place] [address] Nayana Bledsoe D. [address] [place], [place] [id number] Normal [facility] MAGNESIUM BLOODon 10-07-2019 Magnesium [Mass/Vol] 2.1 mg/dL Normal 1.9-2.7 [facility] Comment on above: Order Comment: No: D o not add to previous draw Performed By: #### 0 0071, 45806 #### [address] BASIC METABOLIC PANELon 09-13 Calcium [Mass/Vol] 8.7 mg/dL Normal 8.6-10.3 [facility] Comment on above: Order Comment: No: D o not add to previous draw Performed By: #### 0 0071, 31598 #### [facility] [address] [place] [address], [place] Chloride [Moles/Vol] 110 mmol/L High 98-107 [facility] Comment on above: Order Comment: No: D o not add to previous draw Performed By: #### 0 0071, 08027 #### [facility] [address] [place] [address], [place] CO2 [Moles/Vol] 26 mmol/L Normal 21-31 [facility] Comment on above: Order Comment: No: D o not add to previous draw Performed By: #### 0 0071, 16258 #### [facility] [address] [place] [address], [place] Creatinine [Mass/Vol] 1.92 mg/dL High 0.70-1.30 [facility] Comment on above: Order Comment: No: D o not add to previous draw Performed By: #### 0 0071, 14407 #### [facility] [address] [place] [address], [place] GFR/1.73 sq M predicted among blacks MDRD (S/P/Bld) [Vol rate/Area] 43 ml/min/1.73sq m Abnormal >60 [facility] Comment on above: Order Comment: No: D o not add to previous draw Performed By: #### 0 0071, 80579 #### [facility] [address] [place] [address], [place] GFR/1.73 sq M predicted among non-blacks MDRD (S/P/Bld) [Vol rate/Area] 35 ml/min/1.73sq m Abnormal >60 [facility] Comment on above: Order Comment: No: D o not add to previous draw Performed By: #### 0 0071, 01685 #### [facility] [address] [place] [address], [place] Glucose [Mass/Vol] 96 mg/dL Normal 70-100 [facility] Comment on above: Order Comment: No: D o not add to previous draw Performed By: #### 0 0071, 36446 #### [facility] [address] [place] [address], [place] Potassium [Moles/Vol] 4.4 mmol/L Normal 3.5-5.1 [facility] Comment on above: Order Comment: No: D o not add to previous draw Performed By: #### 0 0071, 44726 #### [facility] [address] [place] [address], [place] Sodium [Moles/Vol] 140 mmol/L Normal 136-145 [facility] Comment on above: Order Comment: No: D o not add to previous draw Performed By: #### 0 0071, 65715 #### [facility] [address] [address], [place] Urea nitrogen [Mass/Vol] 25 mg/dL Normal 7-25 [facility] Comment on above: Order Comment: No: D o not add to previous draw Performed By: #### 0 0071, 23588 #### [facility] [address] [place] [address], [place] Calcium [Mass/Vol] 8.8 mg/dL Normal 8.6-10.3 [facility] Comment on above: Order Comment: No: D o not add to previous draw Performed By: #### 0 0071 #### [facility] [address] [place] [address], [place] Chloride [Moles/Vol] 111 mmol/L High 98-107 [facility] Comment on above: Order Comment: No: D o not add to previous draw Performed By: #### 0 0071 #### [facility] [address] [address], [place] CO2 [Moles/Vol] 25 mmol/L Normal 21-31 [facility] Comment on above: Order Comment: No: D o not add to previous draw Performed By: #### 0 0071 #### [facility] [address] [place] [address], [place] Creatinine [Mass/Vol] 1.94 mg/dL High 0.70-1.30 [facility] Comment on above: Order Comment: No: D o not add to previous draw Performed By: #### 0 0071 #### [facility] [address] [place] [address], [place] GFR/1.73 sq M predicted among blacks MDRD (S/P/Bld) [Vol rate/Area] 42 ml/min/1.73sq m Abnormal >60 [facility] Comment on above: Order Comment: No: D o not add to previous draw Performed By: #### 0 0071 #### [facility] [address] [place] [address], [place] GFR/1.73 sq M predicted among non-blacks MDRD (S/P/Bld) [Vol rate/Area] 35 ml/min/1.73sq m Abnormal >60 [facility] Comment on above: Order Comment: No: D o not add to previous draw Performed By: #### 0 0071 #### [facility] [address] [place] [address], [place] Glucose [Mass/Vol] 102 mg/dL High 70-100 [facility] Comment on above: Order Comment: No: D o not add to previous draw Performed By: #### 0 0071 #### [facility] [address] [place] [address], [place] Potassium [Moles/Vol] 4.5 mmol/L Normal 3.5-5.1 [facility] Comment on above: Order Comment: No: D o not add to previous draw Performed By: #### 0 0071 #### [facility] [address] [place] [address], [place] Sodium [Moles/Vol] 140 mmol/L Normal 136-145 [facility] Comment on above: Order Comment: No: D o not add to previous draw Performed By: #### 0 0071 #### [facility] [address] [facility] [place] [address], [facility] Urea nitrogen [Mass/Vol] 27 mg/dL High 7-25 [facility] Comment on above: Order Comment: No: D o not add to previous draw Performed By: #### 0 0071 #### [facility] [address] [place] [address], [facility] CBC W/DIFFon 10-06-2019 ABS BASOPHILS 0.1 10*3/uL Normal 0.0-0.2 [facility] Comment on above: Order Comment: No: D o not add to previous draw Performed By: #### 5 0103 #### [facility] [address] [place] [address], [facility] ABS IMM GRANS 0.1 10*3/uL Normal 0.0-0.2 [facility] Comment on above: Order Comment: No: D o not add to previous draw Performed By: #### 5 3 #### [facility] [address] [place] [address], [facility] ABS NEUTROPHILS 4.2 10*3/uL Normal 1.6-7.6 [facility] Comment on above: Order Comment: No: D o not add to previous draw Performed By: #### 5 0103 #### [facility] [address] [place] [address], [facility] Basophils/100 WBC (Bld) 0.9 % Normal 0.0-1.0 [facility] Comment on above: Order Comment: No: D o not add to previous draw Performed By: #### 5 3 #### [facility] [address] [place] [address], [facility] Eosinophils (Bld) [#/Vol] 0.3 10*3/uL Normal 0.0-0.5 [facility] Comment on above: Order Comment: No: D o not add to previous draw Performed By: #### 5 0103 #### [facility] [address] [place] [address], [facility] Eosinophils/100 WBC (Bld) 4.8 % Normal 0.0-6.0 [facility] Comment on above: Order Comment: No: D o not add to previous draw Performed By: #### 5 0103 #### [facility] [address] [address] Erythrocyte distribution width (RBC) [Ratio] 14.3 % Normal 11.5-15.0 [facility] Comment on above: Order Comment: No: D o not add to previous draw Performed By: #### 5 0103 #### [facility] [address] Hematocrit (Bld) [Volume fraction] 37.3 % Low 39.0-50.0 [facility] Comment on above: Order Comment: No: D o not add to previous draw Performed By: #### 5 0103 #### [facility] [address] [facility] Hemoglobin (Bld) [Mass/Vol] 11.7 g/dL Low 13.0-17.0 [facility] Comment on above: Order Comment: No: D o not add to previous draw Performed By: #### 5 0103 #### [facility] [address] [facility] [place] [address], [facility] IMMATURE GRANS 1.3 % High 0.0-1.0 [facility] Comment on above: Order Comment: No: D o not add to previous draw Performed By: #### 5 0103 #### [facility] [address] [place] [address], [facility] Lymphocytes (Bld) [#/Vol] 1.5 10*3/uL Normal 1.2-4.0 [facility] Comment on above: Order Comment: No: D o not add to previous draw Performed By: #### [id number] #### [facility] [address] [place] [address], [facility] Lymphocytes/100 WBC (Bld) 21.8 % Normal 20.0-45.0 [facility] Comment on above: Order Comment: No: D o not add to previous draw Performed By: #### [id number] #### [facility] [address] [place] [address], [facility] MCH (RBC) [Entitic mass] 29.5 pg Normal 27.0-33.0 [facility] Comment on above: Order Comment: No: D o not add to previous draw Performed By: #### 5 0103 #### [facility] [address] [place] [address], [facility] MCHC (RBC) [Mass/Vol] 31.4 g/dL Low 32.0-35.0 [facility] Comment on above: Order Comment: No: D o not add to previous draw Performed By: #### 5 0103 #### [facility] [address] [facility] [place] [id number], [facility] MCV (RBC) [Entitic vol] 94.0 fL Normal 82.0-98.0 [facility] Comment on above: Order Comment: No: D o not add to previous draw Performed By: #### 5 0103 #### [facility] [address] [place] [id number], [facility] Monocytes (Bld) [#/Vol] 0.6 10*3/uL Normal 0.1-1.0 [facility] Comment on above: Order Comment: No: D o not add to previous draw Performed By: #### 5 0103 #### [facility] [address] [place] [address], [facility] MONOS 8.2 % Normal 5.0-12.0 [facility] Comment on above: Order Comment: No: D o not add to previous draw Performed By: #### 5 0103 #### [facility] [address] [place] [place] [address], [facility] Neutrophils/100 WBC (Bld) 63.0 % Normal 40.0-72.0 [facility] Comment on above: Order Comment: No: D o not add to previous draw Performed By: #### 5 0103 #### [facility] [address] [place] [id number], [facility] Nucleated RBC/100 WBC (Bld) [Ratio] 0 % Normal 0-0 [facility] Comment on above: Order Comment: No: D o not add to previous draw Performed By: #### 5 0103 #### [facility] [address] [place] [id number], [facility] PLAT CNT 162 10*3/uL Normal 150-400 [facility] Comment on above: Order Comment: No: D o not add to previous draw Performed By: #### 5 0103 #### [facility] [address] [facility] [place] [address], [facility] RBC (Bld) [#/Vol] 3.97 10*6/uL Low 4.20-5.70 [facility] Comment on above: Order Comment: No: D o not add to previous draw Performed By: #### 5 0103 #### [facility] [address] [place] [id number], [facility] WBC (Bld) [#/Vol] 6.69 10*3/uL Normal 4.00-10.60 [facility] Comment on above: Order Comment: No: D o not add to previous draw Performed By: #### 5 0103 #### [facility] [address] [place] [id number], [facility] BASIC METABOLIC PANELon 02-2 Calcium [Mass/Vol] 9.7 mg/dL Normal 8.6-10.3 [facility] Comment on above: Order Comment: No: D o not add to previous draw Performed By: #### 0 0071, 68459 #### [facility] [address] [place] [address], [place] Chloride [Moles/Vol] 105 mmol/L Normal 98-107 [facility] Comment on above: Order Comment: No: D o not add to previous draw Performed By: #### 0 0071, 94563 #### [facility] [address] [place] [address], [place] CO2 [Moles/Vol] 25 mmol/L Normal 21-31 [facility] Comment on above: Order Comment: No: D o not add to previous draw Performed By: #### 0 0071, 51806 #### [facility] [address] [place] [address], [place] Creatinine [Mass/Vol] 2.13 mg/dL High 0.70-1.30 [facility] Comment on above: Order Comment: No: D o not add to previous draw Performed By: #### 0 0071, 54136 #### [facility] [address] [place] [address], [place] GFR/1.73 sq M predicted among blacks MDRD (S/P/Bld) [Vol rate/Area] 38 ml/min/1.73sq m Abnormal >60 [facility] Comment on above: Order Comment: No: D o not add to previous draw Performed By: #### 0 0071, 68409 #### [facility] [address] [place] [address], [place] GFR/1.73 sq M predicted among non-blacks MDRD (S/P/Bld) [Vol rate/Area] 31 ml/min/1.73sq m Abnormal >60 [facility] Comment on above: Order Comment: No: D o not add to previous draw Performed By: #### 0 0071, 25454 #### [facility] [address] Glucose [Mass/Vol] 114 mg/dL High 70-100 [facility] Comment on above: Order Comment: No: D o not add to previous draw Performed By: #### 0 0071, 75045 #### [facility] [address] [place] [address], [facility] Potassium [Moles/Vol] 4.7 mmol/L Normal 3.5-5.1 [facility] Comment on above: Order Comment: No: D o not add to previous draw Performed By: #### 0 0071, 51388 #### [facility] [address] [facility] [place] [address], [facility] Sodium [Moles/Vol] 140 mmol/L Normal 136-145 [facility] Comment on above: Order Comment: No: D o not add to previous draw Performed By: #### 0 0071, 34039 #### [facility] [address] [facility] Urea nitrogen [Mass/Vol] 32 mg/dL High 7-25 [facility] Comment on above: Order Comment: No: D o not add to previous draw Performed By: #### 0 0071, 14833 #### [facility] [address] [facility] [place] [address], [facility] CBC W/DIFFon 10-05-2019 ABS BASOPHILS 0.1 10*3/uL Normal 0.0-0.2 [facility] Comment on above: Performed By: #### 5 102 #### [facility] [address] [place] [address], [facility] ABS IMM GRANS 0.1 10*3/uL Normal 0.0-0.2 [facility] Comment on above: Performed By: #### 5 010 #### [facility] [address] [facility] [place] [address], [facility] ABS NEUTROPHILS 6.2 10*3/uL Normal 1.6-7.6 [facility] Comment on above: Performed By: #### 5 0103 #### [facility] [address] [place] [address], [facility] Basophils/100 WBC (Bld) 0.7 % Normal 0.0-1.0 [facility] Comment on above: Performed By: #### 5 0103 #### [facility] [address] [place] [address], [facility] Eosinophils (Bld) [#/Vol] 0.3 10*3/uL Normal 0.0-0.5 [facility] Comment on above: Performed By: #### 5 0103 #### [facility] [address] [facility] [place] [address], [facility] Eosinophils/100 WBC (Bld) 4.0 % Normal 0.0-6.0 [facility] Comment on above: Performed By: #### 5 3 #### [facility] [address] [facility]. [address] Erythrocyte distribution width (RBC) [Ratio] 14.4 % Normal 11.5-15.0 [facility] Comment on above: Performed By: #### 5 3 #### [facility] [address] [facility] [place] [address], [facility] Hematocrit (Bld) [Volume fraction] 39.3 % Normal 39.0-50.0 [facility] Comment on above: Performed By: #### 5 0103 #### [facility] [address] [facility] [place] [address], [facility] Hemoglobin (Bld) [Mass/Vol] 12.7 g/dL Low 13.0-17.0 [facility] Comment on above: Performed By: #### 5 0103 #### [facility] [address] [place] [id number], [facility] IMMATURE GRANS 0.8 % Normal 0.0-1.0 [facility] Comment on above: Performed By: #### 5 3 #### [facility] [address] [facility] [place] [address], [facility] Lymphocytes (Bld) [#/Vol] 1.4 10*3/uL Normal 1.2-4.0 [facility] Comment on above: Performed By: #### 5 3 #### [facility] [address] [place] [address], [facility] Lymphocytes/100 WBC (Bld) 16.6 % Low 20.0-45.0 [facility] Comment on above: Performed By: #### 102 #### [facility] [address] MCH (RBC) [Entitic mass] 30.3 pg Normal 27.0-33.0 [facility] Comment on above: Performed By: #### 102 #### [facility] [address] [facility]. [address] MCHC (RBC) [Mass/Vol] 32.3 g/dL Normal 32.0-35.0 [facility] Comment on above: Performed By: #### 102 #### [facility] [address] [place] [address], [facility] MCV (RBC) [Entitic vol] 93.8 fL Normal 82.0-98.0 [facility] Comment on above: Performed By: #### 5 3 #### [facility] [address] [place] [address], [facility] Monocytes (Bld) [#/Vol] 0.4 10*3/uL Normal 0.1-1.0 [facility] Comment on above: Performed By: #### 3 #### [facility] [address] [place] [address], [facility] MONOS 4.9 % Low 5.0-12.0 [facility] Comment on above: Performed By: #### 5 0103 #### [facility] [address] [facility] [place] [address], [facility] Neutrophils/100 WBC (Bld) 73.0 % High 40.0-72.0 [facility] Comment on above: Performed By: #### 5 0103 #### [facility] [address] [place] [place] [address], [facility] Nucleated RBC/100 WBC (Bld) [Ratio] 0 % Normal 0-0 [facility] Comment on above: Performed By: #### 5 0103 #### [facility] [address] [place] [address], [facility] PLAT CNT 205 10*3/uL Normal 150-400 [facility] Comment on above: Performed By: #### 5 0103 #### [facility] [address] [place] [address], [facility] RBC (Bld) [#/Vol] 4.19 10*6/uL Low 4.20-5.70 [facility] Comment on above: Performed By: #### 5 0103 #### [facility] [address] [place] [address], [facility] WBC (Bld) [#/Vol] 8.53 10*3/uL Normal 4.00-10.60 [facility] Comment on above: Performed By: #### 5 0103 #### [facility] [address] [place] [address], [facility] CREATININE URINE RANDOMon Creatinine [Mass/Vol] 62.0 mg/dL Normal [facility] Comment on above: Order Comment: No: D o not add to previous draw Result Comment: Ther e are no established reference values for random urine specimens Performed By: #### 2 5706, 60276, 68088 #### [facility] [address] [place] [address], [facility] LIVER BATTERYon 10-05-2019 Albumin [Mass/Vol] 4.6 g/dL Normal 3.5-5.7 [facility] Comment on above: Order Comment: Yes: Add to Previous draw if able Performed By: #### 0 0071, 82067 #### [facility] [address] [place] [address], [facility] ALKALINE PHOSPH 56 IU/L Normal 34-104 [facility] Comment on above: Order Comment: Yes: Add to Previous draw if able Performed By: #### 0 0071, 77478 #### [facility] [address] [place] [address], [place] ALT [Catalytic activity/Vol] 26 U/L Normal 7-52 [facility] Comment on above: Order Comment: Yes: Add to Previous draw if able Performed By: #### 0 0071, 28189 #### [facility] [address] [place] [address], [place] AST [Catalytic activity/Vol] 25 U/L Normal 13-39 [facility] Comment on above: Order Comment: Yes: Add to Previous draw if able Performed By: #### 0 0071, 14074 #### [facility] [address] [place] [address], [place] Bilirubin [Mass/Vol] 0.5 mg/dL Normal 0.3-1.0 [facility] Comment on above: Order Comment: Yes: Add to Previous draw if able Performed By: #### 0 0071, 17186 #### [facility] [address] [place] [address], [place] Bilirubin.direct [Mass/Vol] 0.1 mg/dL Normal 0.0-0.2 [facility] Comment on above: Order Comment: Yes: Add to Previous draw if able Performed By: #### 0 0071, 99632 #### [facility] [address] [place] [address], [place] Protein [Mass/Vol] 7.6 g/dL Normal 6.0-8.3 [facility] Comment on above: Order Comment: Yes: Add to Previous draw if able Performed By: #### 0 0071, 25671 #### [facility] [address] [place] [address], [place] SODIUM URINE RANDOMon 2019 Sodium (U) [Moles/Vol] 111 mmol/L Normal [facility] Comment on above: Order Comment: No: D o not add to previous draw Result Comment: Ther e are no established reference values for random urine specimens Performed By: #### 2 5706, 00764, 42854 #### [facility] [address] [place] [address], [place] UA,MICROSCOPIC REQUIREDon Appearance (U) CLEAR Normal CLEAR [facility] Comment on above: Order Comment: No: D o not add to previous draw Performed By: #### 9 0150 #### [facility] [address] [place] [address], [place] Bilirubin [Mass/Vol] Negative Normal NEGATIVE [facility] Comment on above: Order Comment: No: D o not add to previous draw Performed By: #### 9 0150 #### [facility] [address] [place] [address], [place] BLOOD Negative Normal NEGATIVE [facility] Comment on above: Order Comment: No: D o not add to previous draw Performed By: #### 9 0150 #### [facility] [address] [place] [address], [place] Color (U) YELLOW Normal YELLOW [facility] Comment on above: Order Comment: No: D o not add to previous draw Performed By: #### 9 0150 #### [facility] [address] [place] [address], [place] EPIS OCC Normal FEW,OCC,NONE SEEN [facility] Comment on above: Order Comment: No: D o not add to previous draw Performed By: #### 9 0150 #### [facility] [address] [place] [address], [place] Glucose [Mass/Vol] Negative Normal NEGATIVE [facility] Comment on above: Order Comment: No: D o not add to previous draw Performed By: #### 9 0150 #### [facility] [address] [place] [address], [place] HYALINE CASTS 1 /LPF Abnormal NONE SEEN [facility] Comment on above: Order Comment: No: D o not add to previous draw Performed By: #### 9 0150 #### [facility] [address] [place] [address], [place] KETONE Negative Normal NEGATIVE [facility] Comment on above: Order Comment: No: D o not add to previous draw Performed By: #### 9 0150 #### [facility] [address] [place] [address], [place] LEUK BURAK Negative Normal NEGATIVE [facility] Comment on above: Order Comment: No: D o not add to previous draw Performed By: #### 9 0150 #### [facility] [address] [place] [address], [place] Nitrite Ql (U) Negative Normal NEGATIVE [facility] Comment on above: Order Comment: No: D o not add to previous draw Performed By: #### 9 0150 #### [facility] [address] [place] [address], [place] pH (Bld) 6.0 Normal 5.0-8.0 [facility] Comment on above: Order Comment: No: D o not add to previous draw Performed By: #### 9 0150 #### [facility] [address] [place] [address], [place] Protein [Mass/Vol] Negative Normal NEGATIVE [facility] Comment on above: Order Comment: No: D o not add to previous draw Performed By: #### 9 0150 #### [facility] [address] [place] [address], [place] RBC (Bld) [#/Vol] 0-2 Abnormal NONE SEEN [facility] Comment on above: Order Comment: No: D o not add to previous draw Performed By: #### 9 0150 #### [facility] [address] SPEC GRAV 1.012 Low 1.015-1.020 [facility] Comment on above: Order Comment: No: D o not add to previous draw Performed By: #### 9 0150 #### [facility] [address] [place] [address], [facility] WBC UA 0-2 Abnormal NONE SEEN [facility] Comment on above: Order Comment: No: D o not add to previous draw Performed By: #### 9 0150 #### [facility] [address] UREA NITROGEN URon 0 Urea nitrogen [Mass/Vol] 566 mg/dL Normal [facility] Comment on above: Order Comment: No: D o not add to previous draw Result Comment: Ther e are no established reference values for random urine specimens Performed By: #### 2 5706, 98941, 65751 #### [address] US RENALon 10-05-2019 US RENAL [facility] Department of Radiology [address] [place] [id number] ======== Patient Name: KEL CASTILLO : 1955 Sex: M Age: Race: White Pt. Location: [id number] Patient Status: I Ordered Date: 10/05/2019 10:45:00 [...] hydronephrosis. Electronically signed: Robinson Castellanos. Transcribed by: [email or web address], User Resident: Electronically Signed by: ROBINSON CASTELLANOS @ 10/05/2019 03:41 PM Normal [facility] Comment on above: Order Comment: Otley nephrosis Vital Signs Date Time Vital Sign Value Performing Clinician Facility 04-01-2025 14:14040 Body height 167.6 cm Bill Gant MD Work Phone: [facility] 04-01-2025 14:14-040 Body mass index (BMI) [Ratio] 26.63 kg/m2 Bill Gant MD Work Phone: [facility] 04-01-2025 14:14040 Body weight 74.84 kg Bill Gant MD Work Phone: [facility] 04-01-2025 14:14-040 Diastolic blood pressure 58 mm[Hg] Bill Gant MD Work Phone: [facility] 04-01-2025 14:14-0400 Heart rate 59 /min Bill Gant MD Work Phone: [facility] 04-01-2025 14:14-0400 SaO2% (BldA) [Mass fraction] 99 % Bill Gant MD Work Phone: [facility] 04-01-2025 14:14-0400 Systolic blood pressure 123 mm[Hg] Bill Gant MD Work Phone: [facility] 03-10-2025 09:53-0400 Body height 165.1 cm Darrick Verhoff PA-C Work Phone: [facility] 03-10-2025 09:53-0400 Body mass index (BMI) [Ratio] 27.12 kg/m2 Darrick Verhoff PA-C Work Phone: [facility] 03-10-2025 09:53-0400 Body weight 73.94 kg Darrick Verhoff PA-C Work Phone: [facility] [place] [facility] 03-10-2025 09:53-0400 Diastolic blood pressure 54 mm[Hg] Darrick Verhoff PA-C Work Phone: [facility] [place] [facility] 03-10-2025 09:53-0400 Heart rate 51 /min Darrick Verhoff PA-C Work Phone: [facility] [place] [facility] 03-10-2025 09:53-0400 Respiratory rate 18 /min Darrick Verhoff PA-C Work Phone: [facility] [place] [facility] 03-10-2025 09:53-0400 SaO2% (BldA) [Mass fraction] 100 % Darrick Verhoff PA-C Work Phone: [facility] [place] [facility] 03-10-2025 09:53-0400 Systolic blood pressure 123 mm[Hg] Darrick Verhoff PA-C Work Phone: [facility] [place] [facility] 03-01-2025 13:45-0400 Body mass index (BMI) [Ratio] 25.33 kg/m2 Susan Watson NP Work Phone: [facility] 03-01-2025 13:45-0400 Body temperature 97.3 [degF] Susan Watson 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 Work Phone: [facility] 03-01-2025 13:45-0400 Body weight 75.57 kg Susan Watson 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 Work Phone: [facility] 03-01-2025 13:45-0400 Diastolic blood pressure 64 mm[Hg] Susan Watson 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 Work Phone: [facility] 03-01-2025 13:45-0400 Heart rate 54 /min Susan Watson 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 Work Phone: [facility] 03-01-2025 13:45-0400 Respiratory rate 18 /min Susan Watson 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 Work Phone: [facility] 03-01-2025 13:45-0400 SaO2% (BldA) [Mass fraction] 97 % Susan Watson 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 Work Phone: [facility] 03-01-2025 13:45-0400 Systolic blood pressure 126 mm[Hg] Susan Watson 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 Work Phone: [facility] 01-27-2025 10:220400 Body height 167.6 cm Darrick Verhoff PA-C Work Phone: [facility] 01-27-2025 10:220400 Body mass index (BMI) [Ratio] 26.79 kg/m2 Darrick Verhoff PA-C Work Phone: [facility] 01-27-2025 10:22-0400 Body weight 75.3 kg Darrick Verhoff PA-C Work Phone: [facility] 01-27-2025 10:220400 Diastolic blood pressure 62 mm[Hg] Darrick Verhoff PA-C Work Phone: [facility] 01-27-2025 10:22-0400 Heart rate 57 /min Darrick Verhoff PA-C Work Phone: [facility] 01-27-2025 10:22-0400 Respiratory rate 20 /min Darrick Ayalaff PA-C Work Phone: [facility] 01-27-2025 10:22-0400 Systolic blood pressure 129 mm[Hg] Darrick Ayalaff PA-C Work Phone: [facility] 01-19-2025 16:26-0400 Body height 165.1 cm [facility] 01-19-2025 16:26-0400 Body mass index (BMI) [Ratio] 27.8 kg/m2 [facility] 01-19-2025 16:26-0400 Body weight 75.74 kg [facility] 01-19-2025 16:26-0400 Diastolic blood pressure 53 mm[Hg] [facility] 01-19-2025 16:26-0400 Heart rate 64 /min [facility] 01-19-2025 16:26-0400 Respiratory rate 16 /min [facility] 01-19-2025 16:26-0400 SaO2% (BldA) [Mass fraction] 96 % [facility] 01-19-2025 16:26-0400 Systolic blood pressure 125 mm[Hg] [facility] 01-19-2025 13:06-0400 Body mass index (BMI) [Ratio] 25.21 kg/m2 Susan Watson 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 Work Phone: [facility] 01-19-2025 13:06-0400 Body temperature 98.49 [degF] Susan Watson 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 Work Phone: [facility] 01-19-2025 13:06-0400 Body weight 75.21 kg Susan Shirley 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 Work Phone: [facility] 01-19-2025 13:06-0400 Diastolic blood pressure 70 mm[Hg] Susan Shirley 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 Work Phone: [facility] 01-19-2025 13:06-0400 Heart rate 66 /min Susan Shirley 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 Work Phone: [facility] 01-19-2025 13:06-0400 Respiratory rate 18 /min Susan Aichholz 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 Work Phone: [facility] 01-19-2025 13:06-0400 SaO2% (BldA) [Mass fraction] 96 % Susan Aichholz 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 Work Phone: [facility] 01-19-2025 13:06-0400 Systolic blood pressure 130 mm[Hg] Susan Aichholz 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 Work Phone: [facility] 11-19-2024 13:03-0400 Body mass index (BMI) [Ratio] 25.21 kg/m2 Susan Aichholz 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 Work Phone: [facility] 11-19-2024 13:03-0400 Body temperature 98.71 [degF] Susan Aichholz 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 Work Phone: [facility] 11-19-2024 13:03-0400 Body weight 75.21 kg Susan Aichholz 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 Work Phone: [facility] 11-19-2024 13:03-0400 Diastolic blood pressure 70 mm[Hg] Susan Aichholz 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 Work Phone: [facility] 11-19-2024 13:03-0400 Heart rate 67 /min Susan Aichholz 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 Work Phone: [facility] 11-19-2024 13:03-0400 Respiratory rate 18 /min Susan Aichholz 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 Work Phone: [facility] 11-19-2024 13:03-0400 SaO2% (BldA) [Mass fraction] 96 % Susan Aichholz 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 Work Phone: [facility] 11-19-2024 13:03-0400 Systolic blood pressure 130 mm[Hg] Susan Aichholz 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 Work Phone: [facility] 10-27-2024 15:59-0400 Body height 165.1 cm [facility] 10-27-2024 15:59-0400 Body mass index (BMI) [Ratio] 27.8 kg/m2 [facility] 10-27-2024 15:59-0400 Body weight 75.8 kg [facility] 10-27-2024 15:59-0400 Diastolic blood pressure 73 mm[Hg] [facility] 10-27-2024 15:59-0400 Heart rate 56 /min [facility] 10-27-2024 15:59-0400 Respiratory rate 16 /min [facility] 10-27-2024 15:59-0400 SaO2% (BldA) [Mass fraction] 95 % [facility] 10-27-2024 15:59-0400 Systolic blood pressure 145 mm[Hg] [facility] 10-12-2024 11:22-0500 Body height 165.1 cm Ebony Davilaon DO Work Phone: [facility] 10-12-2024 11:22-0500 Body mass index (BMI) [Ratio] 28.29 kg/m2 Ebonysotero Kaufman Sofia DO Work Phone: [facility] 10-12-2024 11:22-0500 Body weight 77.1 kg Ebonysotero Kaufman Sofia DO Work Phone: [facility] 10-12-2024 11:22-0500 Diastolic blood pressure 61 mm[Hg] Ebony Kaufman Sofia DO Work Phone: [facility] 10-12-2024 11:22-0500 Heart rate 58 /min Ebonysotero Kaufman Sofia DO Work Phone: [facility] 10-12-2024 11:22-0500 Systolic blood pressure 136 mm[Hg] Ebonysotero Kaufman Sofia DO Work Phone: [facility] 10-08-2024 13:45-0500 Body mass index (BMI) [Ratio] 25.82 kg/m2 Susan Watson NP Work Phone: [facility] 10-08-2024 13:45-0500 Body temperature 98.1 [degF] Susan Aichholz 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 Work Phone: [facility] 10-08-2024 13:45-0500 Body weight 77.02 kg Susan Watson 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 Work Phone: [facility] 10-08-2024 13:45-0500 Diastolic blood pressure 72 mm[Hg] Susan Manzoz 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 Work Phone: [facility] 10-08-2024 13:45-0500 Heart rate 51 /min Susan Manzoz 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 Work Phone: [facility] 10-08-2024 13:45-0500 Respiratory rate 18 /min Susan Watson 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 Work Phone: [facility] 10-08-2024 13:45-0500 SaO2% (BldA) [Mass fraction] 97 % Susan Watson 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 Work Phone: [facility] 10-08-2024 13:45-0500 Systolic blood pressure 130 mm[Hg] Susan Watson 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 Work Phone: [facility] 06-17-2024 13:13-0500 Body height 172.7 cm Jayyjessy PadillaCoronado 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 Work Phone: [facility] 06-17-2024 13:13-0500 Body mass index (BMI) [Ratio] 27.55 kg/m2 Jayy Coronado 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 Work Phone: [facility] 06-17-2024 13:13-0500 Body temperature 96.6 [degF] Jayy Coronado 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 Work Phone: [facility] 06-17-2024 13:13-0500 Body weight 82.19 kg Jayy Coronado 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 Work Phone: [facility] 06-17-2024 13:13-0500 Diastolic blood pressure 78 mm[Hg] Jayy Coronado 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 Work Phone: [facility] 06-17-2024 13:13-0500 Heart rate 57 /min Jayy Walshtrick 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 Work Phone: [facility] 06-17-2024 13:13-0500 Respiratory rate 16 /min Jayy Walshtrick 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 Work Phone: [facility] 06-17-2024 13:13-0500 SaO2% (BldA) [Mass fraction] 94 % Jayy Walshtrick 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 Work Phone: [facility] 06-17-2024 13:13-0500 Systolic blood pressure 122 mm[Hg] Jayy Walshtrick 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 Work Phone: [facility] 05-04-2024 09:36-0400 Body height 167.6 cm Ebonysotero Kaufman Sofia DO Work Phone: [facility] 05-04-2024 09:36-0400 Body mass index (BMI) [Ratio] 28.64 kg/m2 Ebonysotero Kaufman Sofia DO Work Phone: [facility] 05-04-2024 09:36-0400 Body weight 80.5 kg Ebony Mandeep Sofia DO Work Phone: [facility] 05-04-2024 09:36-0400 Diastolic blood pressure 63 mm[Hg] Ebony Mandeep Sofia DO Work Phone: [facility] 05-04-2024 09:36-0400 Heart rate 57 /min Ebonysotero Kaufman Sofia DO Work Phone: [facility] 05-04-2024 09:36-0400 Systolic blood pressure 138 mm[Hg] Ebony Mandeep Sofia DO Work Phone: [facility] 03-31-2024 13:00-0400 Body height 167.64 cm [facility] 03-31-2024 13:00-0400 Body mass index (BMI) [Ratio] 29.4 kg/m2 [facility] 03-31-2024 13:00-0400 Body temperature 97 [degF] [facility] 03-31-2024 13:00-0400 Body weight 82.72 kg [facility] 03-31-2024 13:00-0400 Diastolic blood pressure 63 mm[Hg] [facility] 03-31-2024 13:00-0400 Heart rate 58 /min [facility] 03-31-2024 13:00-0400 Respiratory rate 18 /min [facility] 03-31-2024 13:00-0400 SaO2% (BldA) [Mass fraction] 97 % [facility] 03-31-2024 13:00-0400 Systolic blood pressure 143 mm[Hg] [facility] 09-19-2023 13:53-0500 Body height 172.7 cm Shaikh Cornelio LEMON Work Phone: [facility] 09-19-2023 13:53-0500 Body mass index (BMI) [Ratio] 28.43 kg/m2 Shaikh Cornelio LEMON Work Phone: [facility] 09-19-2023 13:53-0500 Body temperature 97.5 [degF] Shaikh Cornelio LEMON Work Phone: [facility] 09-19-2023 13:53-0500 Body weight 84.82 kg Shaikh Cornelio LEMON Work Phone: [facility] 09-19-2023 13:53-0500 Diastolic blood pressure 60 mm[Hg] Shaikh Cornelio LEMON Work Phone: [facility] 09-19-2023 13:53-0500 Heart rate 59 /min Shaikh Cornelio LEMON Work Phone: [facility] 09-19-2023 13:53-0500 SaO2% (BldA) [Mass fraction] 95 % Shaikh Cornelio LEMON Work Phone: [facility] 09-19-2023 13:53-0500 Systolic blood pressure 118 mm[Hg] Shaikh Cornelio LEMON Work Phone: [facility] 01-25-2023 10:00-0400 Body height 167.64 cm Lisseth Harveys Other [facility] Other 01-25-2023 10:00-0400 Body mass index (BMI) [Ratio] 31.57 kg/m2 Lisseth Harveys Other [facility] Other 01-25-2023 10:00-0400 Body temperature 96.2 [degF] Lisseth Harveys Other [facility] Other 01-25-2023 10:00-0400 Body weight 88.72 kg Lisseth Harveys Other [facility] Other 01-25-2023 10:00-0400 Diastolic blood pressure 76 mm[Hg] Lisseth Harveys Other [facility] Other 01-25-2023 10:00-0400 Respiratory rate 20 /min Lisseth Harveys Other [facility] Other 01-25-2023 10:00-0400 SaO2% (BldA) [Mass fraction] 98 % Lisseth Harveys Other [facility] Other 01-25-2023 10:00-0400 Systolic blood pressure 147 mm[Hg] Lisseth Harveys Other [facility] Other 08-15-2022 15:40-0500 Body height 167.6 cm Ebony Kaufman DO Work Phone: [facility] 08-15-2022 15:40-0500 Body weight 89.81 kg Ebonysotero Kaufman DO Work Phone: [facility] 08-15-2022 15:40-0500 Diastolic blood pressure 78 mm[Hg] Ebony Kaufman DO Work Phone: [facility] 08-15-2022 15:40-0500 Heart rate 61 /min Ebony Kaufman DO Work Phone: [facility] 08-15-2022 15:40-0500 SaO2% (BldA) [Mass fraction] 100 % Ebony Kaufman DO Work Phone: [facility] 08-15-2022 15:40-0500 Systolic blood pressure 148 mm[Hg] Ebony Kaufman DO Work Phone: [facility] 07-10-2022 14:40-0500 Body height 167.64 cm Lisseth Harveydiego Other [facility] Other 07-10-2022 14:40-0500 Body mass index (BMI) [Ratio] 31.95 kg/m2 Lisseth Harveys Other [facility] Other 07-10-2022 14:40-0500 Body weight 89.81 kg Lisseth Harveys Other [facility] Other 07-10-2022 14:40-0500 Diastolic blood pressure 70 mm[Hg] Azryan Harveys Other [facility] Other 07-10-2022 14:40-0500 SaO2% (BldA) [Mass fraction] 95 % Azryan Harveys Other [facility] Other 07-10-2022 14:40-0500 Systolic blood pressure 128 mm[Hg] Aziz Angelhous Other [facility] Other 06-05-2022 16:30-0400 Body height 167.64 cm Corona Monroe Other [facility] Other 06-05-2022 16:30-0400 Body mass index (BMI) [Ratio] 32.12 kg/m2 Corona Caseban Other [facility] Other 06-05-2022 16:30-0400 Body temperature 96.5 [degF] Corona Caseban Other [facility] Other 06-05-2022 16:30-0400 Body weight 90.27 kg Corona Caseban Other [facility] Other 06-05-2022 16:30-0400 Diastolic blood pressure 82 mm[Hg] Corona Caseban Other [facility] Other 06-05-2022 16:30-0400 Respiratory rate 20 /min Corona Caseban Other [facility] Other 06-05-2022 16:30-0400 SaO2% (BldA) [Mass fraction] 96 % Corona Monroe Other [facility] Other 06-05-2022 16:30-0400 Systolic blood pressure 140 mm[Hg] Corona Caseban Other [facility] Other 04-10-2022 09:44-0400 Body height 165.1 cm Ebony Mandeep DO Work Phone: [facility] 04-10-2022 09:44-0400 Body weight 89.68 kg Ebony Mandeep DO Work Phone: [facility] 04-10-2022 09:44-0400 Diastolic blood pressure 69 mm[Hg] Ebony Mandeep DO Work Phone: [facility] 04-10-2022 09:44-0400 Heart rate 57 /min Ebony Kaufman DO Work Phone: [facility] 04-10-2022 09:44-0400 Systolic blood pressure 146 mm[Hg] Ebony Kaufman DO Work Phone: [facility] 02-27-2022 15:30-0400 Body height 167.64 cm Kamkaren Monroe Other [facility] Other 02-27-2022 15:30-0400 Body mass index (BMI) [Ratio] 31.95 kg/m2 Corona Evieban Other [facility] Other 02-27-2022 15:30-0400 Body temperature 96.9 [degF] Kamkaren Caseban Other [facility] Other 02-27-2022 15:30-0400 Body weight 89.81 kg Wallaceal Evieban Other [facility] Other 02-27-2022 15:30-0400 Diastolic blood pressure 76 mm[Hg] Kamal Chaban Other [facility] Other 02-27-2022 15:30-0400 Respiratory rate 20 /min Kamal Evieban Other [facility] Other 02-27-2022 15:30-0400 SaO2% (BldA) [Mass fraction] 97 % Kamal Chaban Other [facility] Other 02-27-2022 15:30-0400 Systolic blood pressure 142 mm[Hg] Wallaceal Chaban Other [facility] Other 01-29-2022 12:00-0400 Body height 167.64 cm Cristo Suazo Other [facility] Other 01-29-2022 12:00-0400 Body mass index (BMI) [Ratio] 32.84 kg/m2 Cristo Suazo Other [facility] Other 01-29-2022 12:00-0400 Body weight 92.31 kg Cristo Lambahan Other [facility] Other 01-29-2022 12:00-0400 Diastolic blood pressure 78 mm[Hg] Cristo Suazo Other [facility] Other 01-29-2022 12:00-0400 Respiratory rate 18 /min Cristo Lambahan Other [facility] Other 01-29-2022 12:00-0400 SaO2% (BldA) [Mass fraction] 98 % Cristo Suazo Other [facility] Other 01-29-2022 12:00-0400 Systolic blood pressure 142 mm[Hg] Cristo Lambahan Other [facility] Other 12-26-2021 17:00-0400 Body height 167.64 cm Cristo Lambahan Other [facility] Other 12-26-2021 17:00-0400 Body mass index (BMI) [Ratio] 31.15 kg/m2 Cristojuvenal LambGabriele Other [facility] Other 12-26-2021 17:00-0400 Body weight 87.54 kg Cristojuvenal LambGabriele Other [facility] Other 12-26-2021 17:00-0400 Diastolic blood pressure 79 mm[Hg] Cristo Suazo Other [facility] Other 12-26-2021 17:00-0400 Respiratory rate 18 /min Cristo Suazo Other [facility] Other 12-26-2021 17:00-0400 SaO2% (BldA) [Mass fraction] 95 % Cristo Suazo Other [facility] Other 12-26-2021 17:00-0400 Systolic blood pressure 161 mm[Hg] Cristo Suazo Other [facility] Other 12-22-2021 08:25-0400 Body height 165.1 cm Jessie Bright MD Work Phone: [facility] 12-22-2021 08:25-0400 Body weight 87.68 kg Jessie Bright MD Work Phone: [facility] 12-22-2021 08:25-0400 Diastolic blood pressure 70 mm[Hg] Jessie Bright MD Work Phone: [facility] 12-22-2021 08:25-0400 Heart rate 59 /min Jessie Bright MD Work Phone: [facility] 12-22-2021 08:25-0400 Systolic blood pressure 153 mm[Hg] Jessie Bright MD Work Phone: [facility] 05-23-2021 15:40-0400 Body height 167.64 cm Januszalexandro Kong Other [facility] Other 05-23-2021 15:40-0400 Body mass index (BMI) [Ratio] 30.84 kg/m2 Reuben Triana Other [facility] Other 05-23-2021 15:40-0400 Body temperature 96.3 [degF] Reuben Triana Other [facility] Other 05-23-2021 15:40-0400 Body weight 86.68 kg Reuben Triana Other [facility] Other 05-23-2021 15:40-0400 Diastolic blood pressure 62 mm[Hg] Reuben Triana Other [facility] Other 05-23-2021 15:40-0400 Respiratory rate 18 /min Reuben Triana Other [facility] Other 05-23-2021 15:40-0400 SaO2% (BldA) [Mass fraction] 94 % Reuben Triana Other [facility] Other 05-23-2021 15:40-0400 Systolic blood pressure 140 mm[Hg] Reuben Triana Other [facility] Other Encounters Encounter Date Encounter Type Care Provider Facility Start: 04-29-2025 End: 04-29-2025 ambulatory EBONY SERVINOK SOFIA Facility:[facility] Start: 04-21-2025 End: 04-21-2025 ambulatory [place] Start: 04-15-2025 End: 04-15-2025 ambulatory [place] Start: 04-08-2025 End: 04-08-2025 ambulatory [facility] Start: 04-05-2025 End: 04-05-2025 Telephone encounter Bill Gant MD Work Phone: [facility] Comment on above: 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 Start: 04-05-2025 End: 04-05-2025 ambulatory BILL GANT [facility] Start: 04-02-2025 End: 04-02-2025 Follow-up encounter Bill Gant MD Work Phone: [facility] Comment on above: Results Start: 04-01-2025 End: 04-01-2025 ambulatory BILL GANT Facility:[facility] Start: 04-01-2025 End: 04-01-2025 Patient encounter procedure Bill Gant MD Work Phone: [facility] Comment on above: 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 (Primary Dx); Hx of CABG; Primary hypertension; Mixed hyperlipidemia; CRI (chronic renal insufficiency), stage 4 (severe) (HCC); PAD (peripheral artery disease); Other emphysema (HCC); Non-rheumatic mitral regurgitation; ROMAN (dyspnea on exertion); MCI (mild cognitive impairment) Start: 04-01-2025 End: 04-01-2025 ambulatory BILL GANT Facility:[facility] Start: 04-01-2025 End: 04-01-2025 Clinisync Result Encounter Generic External Data Provider [facility] External Department Unsolicited Start: 04-01-2025 End: 04-01-2025 Clinisync Result Encounter Generic External Data Provider [facility] External Department Unsolicited Start: 04-01-2025 End: 04-01-2025 ambulatory [facility] Start: 03-11-2025 End: 03-11-2025 Clinisync Result Encounter Generic External Data Provider [facility] External Department Unsolicited Start: 03-11-2025 End: 03-11-2025 Clinisync Result Encounter Generic External Data Provider [facility] External Department Unsolicited Start: 03-10-2025 End: 03-10-2025 Office outpatient visit 25 minutes Darrick Sauer PA-C Work Phone: [facility] Comment on above: Cervical spondylosis (Primary Dx) Start: 03-10-2025 End: 03-10-2025 ambulatory [facility] Start: 03-01-2025 End: 03-01-2025 Bamboo flowsheet Susan Watson NP Work Phone: [facility] Start: 03-01-2025 End: 03-01-2025 Bamboo flowsheet Susanman Watson 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 Work Phone: [facility] Start: 03-01-2025 End: 03-01-2025 ambulatory SUSAN VARNERMICHAEL Not Available Start: 03-01-2025 End: 03-01-2025 Office outpatient visit 25 minutes Susan Watson 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 Work Phone: [facility] Comment on above: Cervical spondylosis (Primary Dx); Chronic diastolic heart failure (HCC); Primary hypertension ; 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 ; Chronic kidney [...] Start: 02-19-2025 End: 02-19-2025 ambulatory ABIODUN Gaffney [facility] Start: 02-18-2025 End: 02-23-2025 Clinisync Result Encounter Generic External Data Provider [facility] External Department Unsolicited Start: 02-18-2025 End: 02-23-2025 Clinisync Result Encounter Generic External Data Provider [facility] External Department Unsolicited Start: 01-27-2025 End: 01-27-2025 Office outpatient new 45 minutes Darrick Sauer PA-C Work Phone: [facility] Comment on above: Cervical spondylosis (Primary Dx) Start: 01-27-2025 End: 01-27-2025 ambulatory DARRICK SAUER [facility] Start: 01-19-2025 End: 01-19-2025 Patient encounter procedure [facility] [address] Nephrology Adilson Work Phone: Start: 01-19-2025 End: 01-19-2025 Bamboo flowsheet Susan Watson 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 Work Phone: [facility] Start: 01-19-2025 End: 01-19-2025 Bamboo flowsheet Susan Watson 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 Work Phone: [facility] Start: 01-19-2025 End: 01-19-2025 ambulatory SUSAN WATSON [facility] Work Phone: Start: 01-19-2025 End: 01-19-2025 Office outpatient visit 25 minutes Susan Watson 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 Work Phone: [facility] Comment on above: Cervical spondylosis (Primary Dx); Neck pain; Primary hypertension (CMS/HCC); Chronic kidney disease, stage 4 (severe) (CMS/HCC); EDITH (generalized anxiety disorder) ([facility]); H/O: lung cancer; MCI (mild cognitive impairment) Start: 01-14-2025 [facility] Start: 01-12-2025 [facility] Start: 01-11-2025 End: 01-11-2025 ambulatory [facility] Start: 01-07-2025 End: 01-07-2025 Orders Only Susan Watson 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 Work Phone: [facility] Comment on above: Neck pain (Primary D x) Start: 12-24-2024 End: 12-24-2024 Refill Susan Watson 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 Work Phone: [facility] Comment on above: Primary hypertension (CMS/HCC); Other hyperlipidemia; Neck pain; Recurrent major depression in partial remission (HCC) (CMS/HCC); 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 (CMS/HCC); Gastroesophageal reflux disease without esophagitis; Chronic obstructive pulmonary disease, unspecified COPD type (CMS/HCC); EDITH (generalized anxiety disorder) ([facility]/HCC) Start: 12-07-2024 End: 12-07-2024 Refill Susan Watson 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 Work Phone: [facility] Comment on above: Other hyperlipidemia ; 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 (CMS/HCC); Primary hypertension (CMS/HCC); Recurrent major depression in partial remission (HCC) (CMS/HCC); EDITH (generalized anxiety disorder) (CMS/HCC) Start: 12-01-2024 End: 12-01-2024 Refill Susanman Watson 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 Work Phone: [facility] Comment on above: EDITH (generalized anx iety disorder) (CMS/HCC) (Primary Dx) Start: 11-19-2024 End: 11-19-2024 Bamboo flowsheet Susan Watson 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 Work Phone: [facility] Start: 11-19-2024 End: 11-19-2024 Bamboo flowsheet Susanman Watson 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 Work Phone: [facility] Start: 11-19-2024 End: 11-19-2024 Office outpatient visit 25 minutes Susan Watson 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 Work Phone: [facility] Comment on above: Neck pain (Primary D x); Primary hypertension (CMS/HCC); Chronic kidney disease, stage 4 (severe) ([facility]); EDITH (generalized anxiety disorder) ([facility]); Functional gait abnormality; MCI (mild cognitive impairment) Start: 11-19-2024 End: 11-19-2024 ambulatory SUSAN SHIRLEY Not Available Start: 11-13-2024 End: 11-13-2024 Refill Susan Shirley 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 Work Phone: [facility] Comment on above: Primary hypertension (CMS/HCC); Other hyperlipidemia; Recurrent major depression in partial remission (HCC) (CMS/HCC); 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 (CMS/HCC); Gastroesophageal reflux disease without esophagitis; EDITH (generalized anxiety disorder) (CMS/HCC) Start: 11-12-2024 End: 11-12-2024 Refill Susan Watson NP Work Phone: [facility] Comment on above: Primary hypertension (CMS/HCC); Other hyperlipidemia; Recurrent major depression in partial remission (HCC) (CMS/HCC); 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 (CMS/HCC); Gastroesophageal reflux disease without esophagitis; EDITH (generalized anxiety disorder) (CMS/HCC) Start: 11-09-2024 End: 11-09-2024 Refill Susan Watson 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 Work Phone: [facility] Comment on above: Other hyperlipidemia (CMS/HCC); EDITH (generalized anxiety disorder) (CMS/HCC); Recurrent major depression in partial remission (HCC) (CMS/HCC) Start: 10-27-2024 End: 10-27-2024 ambulatory [facility] Work Phone: Start: 10-27-2024 End: 10-27-2024 Patient encounter procedure [facility] Physician [facility] Nephrology Adilson Work Phone: Start: 10-20-2024 End: 10-20-2024 ambulatory [facility] Start: 10-13-2024 End: 10-13-2024 ambulatory [facility] Start: 10-12-2024 End: 10-12-2024 ambulatory EBONY BLACK Facility:[facility] Start: 10-12-2024 End: 10-12-2024 Patient encounter procedure Ebony Black DO Work Phone: Neurology Comment on above: Gait abnormality (Pr imary Dx); Memory loss; Neck pain Start: 10-08-2024 End: 10-08-2024 Bamboo flowsheet Susan Watson 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 Work Phone: [facility] Start: 10-08-2024 End: 10-08-2024 Bamboo flowsheet Susan Watson 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 Work Phone: [facility] Start: 10-08-2024 End: 10-08-2024 ambulatory SUSAN WATSON Not Available Start: 10-08-2024 End: 10-08-2024 Office outpatient visit 25 minutes Susan Watson 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 Work Phone: [facility] Comment on above: Primary hypertension (CMS/HCC) (Primary Dx); Chronic obstructive pulmonary disease, unspecified (CMS/HCC); Chronic kidney disease, stage 4 (severe) (CMS/HCC); 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 (CMS/HCC); Gastroesophageal reflux disease without esophagitis; EDITH (generalized anxiety disorder) (CMS/HCC); Recurrent major depressive disorder, in full remission (CMS/HCC); Mixed hyperlipidemia (CMS/HCC); MCI (mild cognitive impairment); Other hyperlipidemia (CMS/HCC); Recurrent major depression in partial remission (HCC) (CMS/HCC); Chronic obstructive pulmonary disease, unspecified COPD type (CMS/HCC) Start: 09-08-2024 End: 09-08-2024 ambulatory MISTY POLO Facility:[facility] Start: 09-08-2024 End: 09-08-2024 Patient encounter procedure Misty Polo PhD Work Phone: Neuropyschology Comment on above: Major neurocognitive disorder (HCC) (Primary Dx); JITENDRA (obstructive sleep apnea); Chronic kidney disease, unspecified CKD stage; Coronary artery disease, unspecified vessel or lesion type, unspecified whether angina present, unspecified whether mechoopda or transplanted heart; Complaints of memory disturbance Start: 06-27-2024 End: 06-27-2024 Orders Only Jayy Coronado 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 Work Phone: [facility] Comment on above: 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) (CMS/HCC) Start: 06-23-2024 End: 06-23-2024 External Result Encounter Jayy Coronado NP Work Phone: [facility] External Department Unsolicited Start: 06-23-2024 End: 06-23-2024 External Result Encounter Jayy Coronado NP Work Phone: [facility] External Department Unsolicited Start: 06-23-2024 End: 06-23-2024 ambulatory JAYY Nayana WALSHCORONADO [facility] Start: 06-17-2024 End: 06-17-2024 Bamboo flowsheet Jayy Shayzpatrick 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 Work Phone: [facility] Start: 06-17-2024 End: 06-17-2024 Bamboo flowsheet Jayy Coronado 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 Work Phone: [facility] Start: 06-17-2024 End: 06-17-2024 ambulatory JAYY CORONADO Not Available Start: 06-17-2024 End: 06-17-2024 Office outpatient visit 15 minutes Jayy Moyerk 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 Work Phone: [facility] Comment on above: Primary hypertension (CMS/HCC) (Primary Dx); Other hyperlipidemia (CMS/HCC); 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 (CMS/HCC); Frequent falls; Functional gait abnormality; CKD (chronic kidney disease) stage 4, GFR 15-29 ml/min (CMS/HCC) Start: 06-10-2024 End: 06-10-2024 Bamboo flowsheet Jayy Shayzpatrick 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 Work Phone: [facility] Start: 06-10-2024 End: 06-10-2024 Bamboo flowsheet Jayy Shayzpatrick 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 Work Phone: [facility] Start: 06-10-2024 ambulatory JAYY CORONADO No t Available Start: 05-12-2024 ambulatory EBONY KAUFMAN Facility: [facility] Start: 05-12-2024 End: 05-12-2024 Subsequent hospital visit by physician Ct [facility] Radiology Comment on above: Memory loss [R41.3] Start: 05-04-2024 End: 05-04-2024 ambulatory EBONY BLACK Facility:[facility] Start: 05-04-2024 End: 05-04-2024 Patient encounter procedure Ebony Black DO Work Phone: Neurology Comment on above: Memory loss (Primary Dx); Abnormality of gait Start: 03-31-2024 End: 03-31-2024 ambulatory [facility] Work Phone: Start: 03-31-2024 End: 03-31-2024 Patient encounter procedure [facility] Physician [facility] Nephrology Adilson Work Phone: Start: 03-28-2024 [...] disease without esophagitis; 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 (CMS/HCC); Primary hypertension (CMS/HCC); Chronic obstructive pulmonary disease, unspecified COPD type (CMS/HCC) Start: 04-09-2023 End: 04-09-2023 Emergency department patient visit NON STAFF Facility:[facility] Start: 04-09-2023 End: 04-09-2023 ambulatory Lisseth Toscano Other [facility] Other Start: 04-09-2023 Telephone encounter Lisseth SANCHEZ Nephrology Start: 03-13-2023 End: 10-01-2023 ambulatory [place] Start: 01-25-2023 End: 01-25-2023 ambulatory Aziz Bakhous Other [facility] Other Start: 01-25-2023 Office outpatient vi sit 25 minutes Aziz Bakhous [facility] Start: 08-15-2022 End: 08-15-2022 Patient encounter procedure Ebony Kaufman DO Work Phone: Neurology Comment on above: MCI (mild cognitive impairment) (Primary Dx) Start: 07-27-2022 End: 07-28-2022 ambulatory SHAIKH Randolph GRIMES Facility:[facility] Start: 07-10-2022 End: 07-10-2022 ambulatory Aziz Bakhous Other [facility] Other Start: 07-10-2022 Office outpatient vi sit 15 minutes Aziz Bakhous [facility] [place] Start: 07-07-2022 End: 07-08-2022 ambulatory AZIZ BAKHOUS Facility:[facility] Start: 07-03-2022 End: 07-03-2022 ambulatory Kamal Chaban Facility:[facility] Start: 06-26-2022 End: 06-26-2022 ambulatory Nadira hCoi Other [facility] Other Start: 06-26-2022 Telephone encounter Nadira Choi [facility] [place] Start: 06-05-2022 End: 06-05-2022 ambulatory Kamal Chaban Other [facility] Other Start: 06-05-2022 Office outpatient vi sit 25 minutes Kamal Chaban [facility] Start: 05-29-2022 End: 05-29-2022 ambulatory Thomas Genesis Other [facility] Other Start: 05-29-2022 Telephone encounter Thomas Hurtado [facility] Start: 05-01-2022 Telephone encounter Elsa garcia Drop Machine Operator [facility]iop[facility] Comment on above: 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 (In response to order placed in [facility]) Start: 04-11-2022 End: 04-11-2022 Patient encounter procedure MD Corona Monroe Work Phone: [facility] Start: 04-10-2022 End: 04-10-2022 Patient encounter procedure Ebony Kaufman DO Work Phone: Neurology Comment on above: 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) (Primary Dx); MCI (mild cognitive impairment) Start: 03-13-2022 End: 03-13-2022 ambulatory Thomas Genesis Other [facility] Other Start: 03-13-2022 Telephone encounter Thomas Genesis [facility] Start: 03-05-2022 End: 03-05-2022 ambulatory Thomas Genesis Other [facility] Other Start: 03-05-2022 Telephone encounter Thomas Genesis [facility] Start: 02-28-2022 End: 02-28-2022 ambulatory Corona Casesoila Other [facility] Other Start: 02-28-2022 Telephone encounter Corona Monroe [facility] 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 Start: 02-27-2022 End: 02-27-2022 ambulatory Wallacekaren Casesoila Other [facility] Other Start: 02-27-2022 Office outpatient ne w 45 minutes Corona Monroe [facility] Start: 02-21-2022 Telephone encounter Cristo Bender [facility] [place] Start: 02-21-2022 End: 02-22-2022 ambulatory SHAIKH Randolph GRIMES [facility] Other Start: 02-09-2022 End: 02-09-2022 ambulatory Pulm [facility] 11 Other Phone: Pulmonary Medicine Comment on above: Spirometry Question regarding M RI BRAIN WO IVCON Start: 02-09-2022 End: 02-09-2022 Patient encounter procedure Pulm [facility] 11 Other Phone: [facility] Start: 02-08-2022 End: 02-08-2022 Orders Only Driss Nur MD Work Phone: [facility] Comment on above: Cognitive impairment , mild, so stated (Primary Dx) Shortness of breath (Primary Dx) Cognitive impairment , mild, so stated [G31.84] Start: 02-08-2022 Telephone encounter Thomas Hurtado [facility] Psychiatry Start: 01-29-2022 End: 01-29-2022 ambulatory Cristo Suazo Other [facility] Other Start: 01-29-2022 Office outpatient vi sit 15 minutes Cristo Suazo [facility] [place] Start: 01-05-2022 End: 01-05-2022 ambulatory Cristo Suazo Other [facility] Other Start: 01-05-2022 Telephone encounter Cristo B[facility] [place] Start: 01-01-2022 End: 01-01-2022 ambulatory Cristo Suazo Other [facility] Other Start: 01-01-2022 Telephone encounter Cristo Bender [facility] [place] Start: 12-26-2021 End: 12-26-2021 ambulatory Cristo Suazo Other [facility] Other Start: 12-26-2021 Office outpatient vi sit 25 minutes Cristo Suazo [facility] [place] Start: 12-22-2021 End: 12-22-2021 Patient encounter procedure Jessie Bright MD Work Phone: Neurology Comment on above: 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); Cognitive impairment, mild, so stated; Depression, unspecified depression type Start: 12-18-2021 End: 12-18-2021 ambulatory Thomas Hurtado Other [facility] Other Start: 12-18-2021 Telephone encounter Thomas Genesis [facility] Start: 12-06-2021 End: 12-06-2021 ambulatory Thomas Genesis Other [facility] Other Start: 12-06-2021 Telephone encounter Thomas Genesis [facility] Start: 12-04-2021 End: 12-04-2021 ambulatory Cristo Suazo Other [facility] Other Start: 12-04-2021 Telephone encounter Cristo Bender [facility] [place] Start: 09-13-2021 End: 09-13-2021 ambulatory Thomas Genesis Other [facility] Other Start: 09-13-2021 Telephone encounter Thomas Genesis [facility] Start: 08-16-2021 End: 08-16-2021 ambulatory Cristo Suazo Other [facility] Other Start: 08-16-2021 Telephone encounter Cristo Bender [facility] [place] Start: 05-30-2021 Telephone encounter Cristo Bender [facility] [place] Start: 05-23-2021 Office outpatient vi sit 25 minutes Reuben Triana [facility] Start: 05-23-2021 Telephone encounter Susannah salazar [facility] [place] [facility] Start: 04-03-2018 End: 04-04-2018 Patient encounter [facility] Facility[facility] Start: 03-28-2018 End: 03-29-2018 Patient encounter [facility] Facility:[facility] Procedures Date Procedure Procedure Detail Performing [...] Work Phone: Start: 06-23-2024 Lipid panel Jayy F tere 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 Work Phone: Start: 06-23-2024 Lipid 1996 panel [...] Screening for malign ant neoplasm of colon [facility] Start: 10-20-2029 Lipid panel Lipid Screening [facility] Start: 06-23-2029 Lipid panel Lipid Screening [facility] Start: 2028 RSV Vaccine (1 - 1-d ose 75+ series) RSV Vaccine (1 - 1-dose 75+ series) [facility] Start: 03-10-2026 Adult BMI Screening Adult BMI Screen [facility] Start: 03-10-2026 Tobacco Screening Tobacco Screening [facility] Start: 01-27-2026 Adult BMI Screening Adult BMI Screen ing [facility] Start: 01-27-2026 Tobacco Screening Tobacco Screening [facility] Start: 01-12-2026 Creatinine measurement Serum Creatin ine [facility] Start: 05-31-2025 End: 05-31-2025 Patient encounter procedure 05/31/2025 1:20 PM EDT Office Visit [facility] [address] [place] [address] Susan Watson NP [address] [place] [phone] [facility] Start: 05-02-2025 End: 05-01-2026 NM Heart Perfusion W stress and W radionuclide IV NM CARDIAC PERF STRESS/PHARM Radiology Routine 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 Hx of CABG Other emphysema (HCC) ROMAN (dyspnea on exertion) Expected: 05/02/2025 (Approximate), Expires: 05/01/2026 [facility] Work Phone: Comment on above: Expected: 05/02/2025 (Approximate), Expires: 05/01/2026 Start: 04-16-2025 End: 07-16-2025 Basic metabolic 2000 panel - Serum or Plasma BASIC METABOLIC PANEL Lab Routine Chronic heart failure with preserved ejection fraction (HCC) Expected: 04/16/2025 (Approximate), Expires: 07/16/2025 [facility] Work Phone: Comment on above: Expected: 04/16/2025 (Approximate), Expires: 07/16/2025 Start: 04-16-2025 End: 04-16-2025 Patient encounter procedure 04/16/2025 11:00 AM EDT Office Visit Neurology [address] [place] [address] Ebony Trent DO [address] [place] [address] 6 month follow up Neurology Comment on above: 6 month follow up Start: 04-15-2025 End: 05-01-2026 LUNG DIFFUSION CAPACITY (DLCO) LUNG DIFFUSION CAPACITY (DLCO) PFT Routine Other emphysema (HCC) Expected: 04/15/2025 (Approximate), Expires: 05/01/2026 [facility] Comment on above: Expected: 04/15/2025 (Approximate), Expires: 05/01/2026 Start: 04-15-2025 End: 05-01-2026 LUNG VOLUMES LUNG VOLUMES PFT Routine Other emphysema (HCC) Expected: 04/15/2025, Expires: 05/01/2026 [facility] Comment on above: Expected: 04/15/2025 , Expires: 05/01/2026 Start: 04-15-2025 End: 05-01-2026 SPIROMETRY BASELINE ONLY SPIROMETRY BASELINE ONLY PFT Routine Other emphysema (HCC) Expected: 04/15/2025 (Approximate), Expires: 05/01/2026 [facility] Comment on above: Expected: 04/15/2025 (Approximate), Expires: 05/01/2026 Start: 04-15-2025 End: 05-01-2026 XR Chest PA and Lateral XR CHEST 2V FRONTAL/LAT Radiology Routine Other emphysema (HCC) Expected: 04/15/2025 (Approximate), Expires: 05/01/2026 [facility] Comment on above: Expected: 04/15/2025 (Approximate), Expires: 05/01/2026 Start: 04-12-2025 Influenza vaccination N [facility] Start: 03-10-2025 End: 03-10-2026 MR Cervical spine WO contrast MR cervical spine without contrast Imaging Routine Cervical spondylosis Expected: 03/10/2025, Expires: 03/10/2026 [facility] Work Phone: Comment on above: Expected: 03/10/2025 , Expires: 03/10/2026 Start: 03-10-2025 End: 03-10-2025 Patient encounter procedure 03/10/2025 9:45 AM EDT Office Visit [facility] [address] [place] [phone] VerDarrick darnell PA-C [address] [place] [address] [facility] Start: 03-01-2025 End: 03-01-2025 Patient encounter procedure 03/01/2025 1:40 PM EDT Office Visit [facility] [address] [place] [address] Susan Watson, PARI [address] [place] [address] [facility] Start: 02-19-2025 End: 02-19-2025 Admission to same day surgery center 02/19/2025 2:58 PM EDT - 02/19/2025 3:07 PM EDT Surgery [facility] [address] [place] [phone] Abiodun Cherry MD [address] [id number] INJECTION FACET JOINT Bilateral C 5/6,6/7 [57101 (CPT )] [facility] Comment on above: INJECTION FACET JOIN T Bilateral C 5/6,6/7 [11612 (CPT )] Start: 02-19-2025 End: 02-19-2025 Njx dx/ther agt pvrt facet jt crv/thrc 1 level INJECTION FACET JOINT Cervical spondylosis 02/19/2025 2:58 PM EDT [facility] Start: 02-19-2025 Subsequent hospital visit by physician 02/19/2025 2:58 PM EDT Hospital Encounter [facility] [address] [place] [phone] Abiodun Cherry MD [address] [facility], [place] [id number] [facility] Start: 01-19-2025 End: 01-19-2025 Patient encounter procedure 01/19/2025 1:00 PM EDT Office Visit [facility] [address] [place] [phone] Susan Watson NP [address] [place] [address] [facility] Start: 01-07-2025 End: 01-07-2026 XR Cervical spine 2 or 3 Views XR cervical spine 2 or 3 views Imaging Routine Neck pain Expected: 01/07/2025 (Approximate), Expires: 01/07/2026 [facility] Work Phone: Comment on above: Expected: 01/07/2025 (Approximate), Expires: 01/07/2026 Start: 11-19-2024 End: 11-19-2024 Patient encounter procedure [facility] Comment on above: Chronic obstructive pulmonary disease, unspecified COPD type (CMS/HCC) (Primary Dx); 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 (CMS/HCC); Atherosclerosis of arteries of extremities (CMS/HCC); Primary hypertension (CMS/HCC); Gastroesophageal reflux disease without esophagitis; Chronic kidney disease, stage 4 (severe) (CMS/HCC); EDITH (generalized anxiety disorder) (CMS/HCC) Start: 09-16-2024 End: 09-16-2024 Patient encounter procedure 09/16/2024 1:00 PM EST Office Visit [facility] [address] [place] [phone] Jayy Coronado NP [address] [place] [phone] [facility] Start: 08-12-2024 Advance Directive Discussion Advance Directive Discussion [facility] Start: 08-12-2024 Medicare Advantage Annual Wellness Visit Medicare Advantage Annual Wellness Visit [facility] Start: 06-30-2024 End: 06-30-2024 ambulatory 06/30/2024 11:30 AM EST Evaluation [facility] [address] [place] [address] Babak Aquino, PT [address] [address] [facility] Start: 06-17-2024 End: 06-17-2025 Lipid 1996 panel - Serum or Plasma Lipid panel Lab Routine Primary hypertension (CMS/HCC) Expected: 06/17/2024 (Approximate), Expires: 06/17/2025 [facility] Comment on above: Expected: 06/17/2024 (Approximate), Expires: 06/17/2025 Start: 06-10-2024 End: 06-10-2024 Patient encounter procedure [facility] Comment on above: Arrived Start: 05-19-2024 Diabetes Screening Diabetes Screenin g [facility] Start: 05-12-2024 End: 05-12-2024 Patient encounter procedure 05/12/2024 7:45 AM EDT Appointment Radiology [address] [place] [address] ct wo contrast Radiology Comment on above: ct wo contrast Start: 04-12-2024 Covid-19 Vaccine ( season) Covid-19 Vaccine ( season) [facility] Start: 04-12-2024 Influenza vaccination Influenza Vacc ine (#1) [facility] Start: 12-24-2023 End: 12-24-2023 Patient encounter procedure 12/24/2023 1:15 PM EDT Office Visit [facility] [address] [place] [address] Shaikh Grimes MD [address] [place] [phone] [facility] Start: 09-19-2023 End: 09-19-2024 CBC W Auto Differential panel - Blood CBC and differential Lab Routine Recurrent major depression in partial remission (HCC) (CMS/HCC) CKD (chronic kidney disease) stage 4, GFR 15-29 ml/min ([facility]) 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 ([facility]) Primary hypertension ([facility]/HCC) Expected: 09/19/2023 (Approximate), Expires: 09/19/2024 [facility] Work Phone: Comment on above: Expected: 09/19/2023 (Approximate), Expires: 09/19/2024 Start: 09-19-2023 End: 09-19-2024 Comprehensive metabolic 2000 panel - Serum or Plasma Comprehensive metabolic panel Lab Routine Recurrent major depression in partial remission (HCC) ([facility]) CKD (chronic kidney disease) stage 4, GFR 15-29 ml/min ([facility]/HCC) 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 ([facility]) Primary hypertension ([facility]) Expected: 09/19/2023 (Approximate), Expires: 09/19/2024 [facility] Comment on above: Expected: 09/19/2023 (Approximate), Expires: 09/19/2024 Start: 09-19-2023 End: 09-19-2024 Creatinine [Mass/volume] in Urine Creatinine, urine, random Lab Routine CKD (chronic kidney disease) stage 4, GFR 15-29 ml/min ([facility]/HCC) Expected: 09/19/2023 (Approximate), Expires: 09/19/2024 [facility] Comment on above: Expected: 09/19/2023 (Approximate), Expires: 09/19/2024 Start: 09-19-2023 End: 09-19-2024 Lipid 1996 panel - Serum or Plasma Lipid panel Lab Routine Other hyperlipidemia ([facility]) Expected: 09/19/2023 (Approximate), Expires: 09/19/2024 [facility] Comment on above: Expected: 09/19/2023 (Approximate), Expires: 09/19/2024 Start: 09-19-2023 End: 09-19-2024 Protein, urine, random Protein, urine, random Lab Routine CKD (chronic kidney disease) stage 4, GFR 15-29 ml/min ([facility]/HCC) Expected: 09/19/2023 (Approximate), Expires: 09/19/2024 [facility] Comment on above: Expected: 09/19/2023 (Approximate), Expires: 09/19/2024 Start: 08-12-2023 Advance Directive Discussion Advance Directive Discussion [facility] Start: 04-12-2023 Influenza vaccination Influenza Vacc ine (#1) [facility] Start: 12-22-2022 Adult depression screening assessment DEPRESSION SCREENING [facility] Start: 08-12-2022 ADVANCE DIRECTIVE DISCUSSION ADVANCE DIRECTIVE DISCUSSION [facility] Start: 04-12-2022 Influenza vaccination INFLUENZA (#1) [facility] Start: 02-09-2022 End: 03-10-2023 SPIROMETRY WITH DILATOR IF OBSTRUCTED [facility] Work Phone: Comment on above: Expected: 02/09/2022 , Expires: 03/10/2023 Start: 12-22-2021 End: 02-21-2022 SYPHILIS TOTAL W/REFLEX SYPHILIS TOTAL W/REFLEX Lab Routine Cognitive impairment, mild, so stated 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) Depression, unspecified depression type Expected: 12/22/2021, Expires: 02/21/2022 [facility] Work Phone: Comment on above: Expected: 12/22/2021 , Expires: 02/21/2022 Start: 12-22-2021 End: 02-21-2022 Thyrotropin [Units/volume] in Serum or Plasma TSH BLD Lab Routine Cognitive impairment, mild, so stated 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) Depression, unspecified depression type Expected: 12/22/2021, Expires: 02/21/2022 [facility] Work Phone: Comment on above: Expected: 12/22/2021 , Expires: 02/21/2022 Start: 12-22-2021 End: 02-21-2022 VITAMIN B12 BLOOD VITAMIN B12 BLOOD Lab Routine Cognitive impairment, mild, so stated 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) Depression, unspecified depression type Expected: 12/22/2021, Expires: 02/21/2022 [facility] Work Phone: Comment on above: Expected: 12/22/2021 , Expires: 02/21/2022 Start: 12-05-2021 COVID-19 VACCINE (4 - Booster for Pfizer series) COVID-19 VACCINE (4 - Booster for Pfizer series) [facility] Start: 10-01-2021 COVID-19 VACCINE (4 - Booster for Pfizer series) COVID-19 VACCINE (4 - Booster for Pfizer series) [facility] Start: 08-12-2021 ADVANCE DIRECTIVE DISCUSSION ADVANCE DIRECTIVE DISCUSSION [facility] Start: 2018 Fall Risk Screening Fall Risk Screen ing [facility] Start: 2018 PNEUMOCOCCAL: 65+ (1 - PCV) PNEUMOCOCCAL: 65+ (1 - PCV) [facility] Start: 2018 PNEUMOVAX AGE 65 AND OVER WITH 5YR LOOKBACK (#1) PNEUMOVAX AGE 65 AND OVER WITH 5YR LOOKBACK (#1) [facility] Start: 2013 RSV Vaccine (1 - Ris k 60-74 years 1-dose series) RSV Vaccine (1 - Risk 60-74 years 1-dose series) [facility] Start: 2008 PROSTATE CANCER SCREENING DISCUSSION PROSTATE CANCER SCREENING DISCUSSION [facility] Start: 2003 Administration of varicella zoster vaccine Zoster (Shingles) Vaccine (1 of 2) [facility] Start: 2003 SHINGRIX VACCINE (1 of 2) SHINGRIX VACCINE (1 of 2) [facility] Start: 1998 COLOGUARD (FIT-DNA) COLOGUARD (FIT-D NA) [facility] Start: 1998 Colonoscopy COLONOSCOPY [facility] Start: 1998 COLORECTAL CANCER SCREENING COLORECTAL CANCER SCREENING [facility] Start: [address] COLONOGRAPHY [facility] Start: 1998 DIABETES SCREEN DIABETES SCREEN [facility] Start: 1998 FECAL OCCULT BLOOD FECAL OCCULT BLOO D [facility] Start: 1998 Screening for malign ant neoplasm of colon [facility] Start: 1998 SIGMOIDOSCOPY SIGMOIDOSCOPY [facility] Start: 1988 Lipid panel Lipid Screening [facility] Start: 1988 LIPID SCREEN LIPID SCREEN [facility] Start: 1972 DTaP,Tdap and Td Vaccines (1 - Tdap) DTaP,Tdap and Td Vaccines (1 - Tdap) [facility] Start: 1972 Urine microalbumin profile [facility] Start: 1971 Adult BMI Follow Up Plan Adult BMI F ollow Up Plan [facility] Start: 1971 Annual 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 cuong Disease Visit Annual PCP Team Chronic Disease Visit [facility] Start: 1971 Anxiety Screening Anxiety Screening [facility] Start: 1971 Hepatitis B surface antibody level LDL Cholesterol [facility] Start: 1971 HEPATITIS C SCREENING HEPATITIS C SC [facility] Start: 1971 Hepatitis C screening Hepatitis C Sc [facility] Start: 1965 Depression Screening Depression Scre ening [facility] Start: 1953 Medicare Annual Well ness (AWV) Medicare Annual Wellness (AWV) [facility] Start: 1953 Screening for malign ant neoplasm of colon [facility] Start: 1953 Tobacco Counseling Tobacco Counselin g [facility] CBC W Auto Different ial panel - Blood CBC and differential Lab Routine Primary hypertension (CMS/HCC) Ordered: 06/17/2024 [facility] Work Phone: Comment on above: Ordered: 06/17/2024 Comprehensive metabo lic 2000 panel - Serum or Plasma Comprehensive metabolic panel Lab Routine Primary hypertension (CMS/HCC) Ordered: 06/17/2024 [facility] Comment on above: Ordered: 06/17/2024 End: 06-03-2025 CT Head WO contrast CT BRAIN WO IVCON Radiology Routine Memory loss 1 Occurrences starting 05/04/2024 until 06/03/2025 [facility] Work Phone: Comment on above: 1 Occurrences starti ng 05/04/2024 until 06/03/2025 End: 01-21-2023 Mri brain brain stem w/o contrast material MRI BRAIN WO IVCON Radiology Routine Cognitive impairment, mild, so stated 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) Depression, unspecified depression type 1 Occurrences starting 12/22/2021 until 01/21/2023 [facility] Work Phone: Comment on above: 1 Occurrences starti ng 12/22/2021 until 01/21/2023 Renal function 2000 panel - Serum or Plasma [facility] Renal function 1999 panel - Serum or Plasma [facility] Renal function 1999 panel - Serum or Plasma [facility] [facility] [place] Immunizations Immunization Date Immunization Notes Care Provider [facility] 08-06-2021 COVID-19 Vaccine Pfi zer - Documentation Purposes Only Corona Monroe Other [employer] [facility] [employer] Other 05-23-2021 influenza, high dose seasonal, preservative-free Susannahmelly Nevarez Other [employer] Other 05-23-2021 Influenza, High-dose Seasonal, Quadrivalent, Preservative Free Shaikh Cornelio LEMON Work Phone: [facility] 05-23-2021 influenza virus vaccine, unspecified formulation Shaikh Cornelio LEMON Work Phone: [facility] 11-08-2020 COVID-19 Pfizer Susannah montano Other [employer] Other 10-19-2020 COVID-19 Vaccine Pfi zer - Documentation Purposes Only Susannah Nevarez Other [employer] Other 08-03-2020 influenza, high dose seasonal, preservative-free Susannah Nevarez Other [employer] Other 08-03-2020 pneumococcal polysaccharide vaccine, 23 valent Susannah Nevarez Other [employer] Other 08-03-2020 influenza virus vaccine, unspecified formulation [facility] 08-03-2020 Influenza, High-dose Seasonal, Quadrivalent, Preservative Free Shaikh Cornelio LEMON Work Phone: [facility] 08-27-2019 pneumococcal conjuga te vaccine, 13 valent Susannah Nevarez Other [employer] Other Payers Date Payer Category Payer Medicare (Managed Care) 1.2. [id number] 2024 Medicare O [facility] EDICARE [id number] 2024 Unknown [id number] 2023 Medicaid [employer] MEDICARE A DVANTAGE [id number] 2022 [facility] Shield [facility] [id number] 2022 Self-pay [id number] 2020 Unknown JENIFEREAGLE PAREDES PPO [id number] 2020-Present [phone] [address] [place] [address] PPO [id number] 2018 Unknown 2015 Medicare MEDICARE MEDICAR E A AND B [id number] 2015-Present [phone] [place] [address] Medicare [id number] 2015 Medicare [id number]. [id number] 1953 Unknown [id number] 2.16.840.1.212544.3.579.2. 593 1953 Unknown [id number] 2.16.840.1.244444.3.579.2. 593 1953 Unknown [id number] 2.16.840.1.204424.3.579.2. 593 1953 Unknown [id number] 2.16.840.1.627045.3.579.2. 1259 1953 Unknown [id number] 2.16.840.1.108143.3.579.2. 1259 1953 Unknown [id number] 2.16.840.1.288587.3.579.2. 1259 1953 Unknown [id number] 2.16.840.1.355908.3.579.2. 125 1953 Unknown [id number] 2.16.840.1.980307.3.579.2. 125 1953 Unknown [id number] 2.16.840.1.983253.3.579.2. 1258 1953 Unknown [id number] 2.16.840.1.104227.3.579.2. 1258 1953 Unknown [id number] 2.840.1.422860.3.579.2. 1285 1953 Unknown [id number] 2.16.840.1.120287.3.579.2. 1285 1953 Unknown [id number] 2.16.840.1.236046.3.579.2. 1285 1953 Unknown [id number] 2.16.840.1.465333.3.579.2. 1285 1953 Unknown [id number] 2.840.1.050556.3.579.2. 1285 1953 Unknown [id number] 2.16.840.1.633765.3.579.2. 128 1953 Unknown [id number] 2.16.840.1.766726.3.579.2. 1285 1953 Unknown [id number] 2.16.840.1.191351.3.579.2. 1285 1953 Unknown [id number] 2.16.840.1.226149.3.579.2. 1285 1953 Unknown [id number] 2.16.840.1.826178.3.579.2. 1286 1953 Unknown [id number] 2.16.840.1.013130.3.579.2. 1286 [facility] [id number] 2.16.840.1.474943.19 Medicare [id number] 2.16.840.1.022220.08-12-1899 Private Health Insurance [id number] Unknown [facility] [id number] Unknown [id number] 2.16.840.1.269158.3.579.2. 531 Unknown [id number] 2.16.840.1.904985.3.579.2. 531 Social History Date Type Detail Facility Start: 12-22-2021 End: 08-15-2022 Tobacco smoking status LAIS Never smoked tobacco [facility] Start: 12-22-2021 End: 01-27-2025 Tobacco use and exposure User of smokeless tobacco [facility] End: 07-14-2022 History of tobacco use Chews Tobacco [facility] Start: 1955 Sex Assigned At Not on file [facility] Start: 12-12-2021 End: 04-10-2022 Exposure to SARS-CoV-2 (event) Not sure [facility] Start: 05-16-2023 End: 07-22-2023 Sex Assigned At [facility] Start: 09-30-2020 End: 03-11-2024 Tobacco smoking status LAIS Ex-smoker (finding) [facility] Start: 1955 Sex Assigned At Male F [facility] Start: 08-15-2022 Tobacco use and exposure Former smokeless tobacco user [facility] History of tobacco use Current smoker [facility] History of tobacco use Cigarette Smoker [facility] Start: 07-12-2023 End: 03-11-2024 Tobacco use and exposure Smokeless tobacco non-user [facility] Start: 09-19-2023 End: 03-01-2025 Alcohol intake Lifetime non-drinker (finding) [facility] Start: 05-16-2023 End: 07-22-2023 History of [...] Alcohol Comment caffeine: 1-2 cups per day [facility] Start: 10-02-2019 End: 10-27-2024 Sex Male (finding) [facility] How often do you nee d [...] - these days [OSQ] To some extent [facility] Start: 04-01-2025 Alcoholic beverage intake Ex-drinker (finding) [facility] NEGATED: Highlighted rowStart: NINF History of tobacco use Passive smoker [facility] Medical Equipment Procedure Code Equipment Code Equipment Origin al Text Equipment Identifier Dates Repair, hernia, umbilical Abdominal hernia surgical mesh, composite-polymer [id number] FDA Start: 09-30-2020 Goals Date Patient Goal Desired Activity /State Personal health goal Clinical Notes 05-23-2021 to 04-29-2025 Telephone Encounter - Misha Mariana, LPN - 04/05/2025 4:02 PM EDTTelephone Encounter - Misha Mariana, LPN - 04/05/2025 4:02 PM EDTAddendum Note - Bill Gant MD - 04/02/2025 8:18 AM EDT Note Date & Type Note Facility 04-29-2025 Note Spoke to daughter Cristela abarca in reference to cardiac cath per Dr. Tolliver. Daughter verbalized understanding and agreed with plan of care. Labs faxed to [facility], cath ordered sent to [facility] 04-29-2025 Note HNO ID: [id number] Author: EBONY TRENT DO Service: ? Author Type: Physician Type: Progress Notes Filed: 04/29/2025 16:05 Note Text: [facility] Follow up/ Established patient visit Individuals who were included in, or assisted with the encounter were: Samir Castillo Ebony Black DO Chief Complaint/Issues: Samir Castillo is a 70 year old male seen in the [facility] for: Memory loss Most [...] graded by [facility] Gait No ataxia Assessment AND Plan 04/29/2025 - General Neurology, Ebony Black, DO ASSESSMENT Mr. Castillo is a 70 year old man with memory issues and tension headache which have all improved. PLAN Follow-up in December when I am back from maternity leave, or a needed No diagnosis found. No follow-ups on file. = Data Review Objective Current Outpatient Medications Medication [...] 24 hr TAKE 1 TABLET BY MOUTH TWIC (more content not included)... [facility] 04-29-2025 Note HNO ID: [id number] Author: CIELO MARROQUIN MA Service: ? Author Type: Test Engineer Nuclear Equipment Type: Progress Notes Filed: 04/29/2025 16:05 Note Text: 04/22/2025 PROMIS Global Health Physical Health Summary [...] SD worse than population and warrants attention [facility] 04-21-2025 Note DIVISION OF VASCULAR SURGERY HPI Kel Castillo is a 69 y.o. male who presents today for No chief complaint on file. Patient referred to us for PAD. HE has had a HUBER study done at [facility] on 02/23/25. Patient with a history of [...] Cancer (CMS/HCC) Coronary artery disease Hyperlipidemia Hypertension [facility] 04-05-2025 Telephone encounter Note Chest x-ray results received from [facility]. Scanned in for review. Marinaa Wheeler LPN [facility] 04-05-2025 Miscellaneous Notes Chest x-ray results received from [facility]. Scanned in for review. Mariana Wheeler LPN documented in this encounter [facility] 04-02-2025 Telephone encounter Note I spoke to Nini and informed them of 's response and recommendations. She voiced understanding and will call back with fax number for lab of choice. Brianne Patterson LPN [facility] 04-02-2025 Miscellaneous Notes I spoke to [...] 2 weeks that can be done in [facility] I spoke to Nini and informed them of 's response to lab results and recommendations. She voiced understanding and wants to go ahead and start both medications. [facility] in [place] on file is pharmacy of choice. Brianne [...] Gant MD documented in this encounter [facility] 04-02-2025 Note Addended by: BILL GANT on: 04/02/2025 08:18 AM Modules accepted: Orders [facility] 04-02-2025 Telephone encounter Note If the Jardiance is too expensive just have them cancel that particular prescription. I will order a BMP for about 2 weeks that can be done in [facility] 04-02-2025 Telephone encounter Note I spoke to Nini and informed them of 's response to lab results and recommendations. She voiced understanding and wants to go ahead and start both medications. [facility] in [place] on file is pharmacy of choice. Brianne Patterson LPN [facility] 04-02-2025 Telephone encounter Note ----- Message [...] PM EDT To: Bill Gant MD [facility] 04-01-2025 Instructions Bill Gant MD - [...] get back with you. Please ask your machining supervisor to send results of the peripheral artery imaging that is planned to look at your legs in the next few weeks. documented in this encounter [facility] 04-01-2025 History of Present illness Narrative Chief Complaint No chief complaint on file. History of Present Illness: Samir Castillo is a 69-year-old male with a history of CAD, status post-CABG, HTN, HLD, COPD, PAD, stage 4 CKD, and mild cognitive impairment, presenting for a new patient visit. He lives in [place] and gets most of his care in [place] at [facility] but just wants a second [...] supplemental oxygen. He has not seen a senior security analyst recently and has not had any pulmonary [...] family for transportation. He worked at a [employer] before retiring. He quit smoking 40 years [...] 1/2 TABLETS BY MOUTH EVERY DAY omega 3-lod-ziz-fish oil (FISH OIL) 100-160-1,000 mg cap Take [...] and Plan: 1. 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 (I25.10) 2. Hx [...] planned peripheral angiogram by Dr. Tolliver at [facility]. - Discussed potential interventions (balloon angioplasty, stenting, surgery) depending on angiogram findings. - Advised patient and family to ensure results are sent to our office for review. 9. Other emphysema (HCC) (J43.8) COPD with mild baseline symptoms; no [...] avoid him having to come back to [place] or [place] for all this testing. If they are done locally in the [facility] or in [place] I would then asked that results be sent to our office when available. Thank you Electronically signed by Bill Gant MD on March 31, 2025, 7:13 AM [1] Social History Tobacco Use Smoking status: Never Smokeless tobacco: Former Types: Chew Quit date: 07/14/2022 documented in this encounter [facility] 04-01-2025 Note HNO ID: [id number] Author: BILL GANT MD Service: ? Author Type: Physician Type: Progress Notes Filed: 04/01/2025 15:11 Note Text: Chief Complaint No chief complaint on file. History of Present Illness: Smair Castillo is a 69-year-old male with a history of CAD, status post-CABG, HTN, HLD, COPD, PAD, stage 4 CKD, and mild cognitive impairment, presenting for a new patient visit. He lives in [place] and gets most of his care in [place] at [facility] but just wants a second [...] supplemental oxygen. He has not seen a senior security analyst recently and has not had any pulmonary [...] family for transportation. 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 He quit smoking 40 [...] 1/2 TABLETS BY MOUTH EVERY DAY omega 2-fqk-luu-fish oil (FISH OIL) 100-160-1,000 mg cap Take [...] H (more content not included)... [facility] 03-10-2025 History of Present illness Narrative [facility] [address] [place] [address] Patient: Kel Castillo Jr. Sex: male : 1955 Age: 69 y.o. PCP: SUSAN WATSON, SALES REPRESENTATIVE HEALTH INSURANCE-VP PUBLISHER DEVELOPMENT 03/10/2025 Kel Castillo Jr. is here for a(n) post procedure follow [...] kidney disease, stage 4 (severe) ([facility]) 09/19/2023 Chronic obstructive pulmonary disease, unspecified ([facility]) 03/11/2024 CKD (chronic kidney disease) stage 3 Closed nondisplaced fracture of greater tuberosity of left humerus with routine healing 09/19/2023 COPD (chronic obstructive pulmonary disease) ([facility]) Coronary artery disease 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 09/19/2023 Depression Dyspnea and respiratory abnormalities 09/18/2013 66 pk/yr history of smoking. Quit in 1994, when diagnosed with NSCLC and treated with RULobectomy and XRT. Also has extensive coronary disease, with CABG. Sees cardiology at [place]. Anxiety, HTN, CKD IIIb. PCP started albuterol [...] echocardiogram Hypertension Intermittent claudication 08/25/2012 Lung cancer ([facility]) MCI (mild cognitive impairment) 04/12/2022 Migraine 07/18/2012 [...] 02/19/2025 Performed by Abiodun Cherry MD at [facility] No Known Allergies History reviewed. No [...] Resource Strain: Low Risk (02/28/2025) Received from [facility] Overall Financial Resource Strain (CARDIA) Difficulty of Paying Living Expenses: Not very hard Food Insecurity: No Food Insecurity (03/10/2025) Hunger Screening Food Insecurity - Worry: Never True Food Insecurity - Inability: Never True Transportation Needs: No Transportation Needs (02/28/2025) Received from [facility] PRAPARE - Transportation Lack of Transportation (Medical): No Lack of Transportation (Non-Medical): No Physical Activity: Inactive (02/28/2025) Received from [facility] Exercise Vital Sign Days of Exercise per Week: 0 days Minutes of Exercise per Session: 0 min Stress: Stress Concern Present (02/28/2025) Received from [facility] [place] [employer] - Occupational Stress Questionnaire Feeling of Stress : To some extent Social Connections: Socially Isolated (02/28/2025) Received from [facility] Social Connection and Isolation Panel [NHANES] Frequency of Communication with Friends and Family: More than three times a week Frequency of Social Gatherings with Friends and Family: Once a week Attends Lutheran Services: Never Active Member of Clubs or Organizations: No Attends Club or Organization Meetings: Never Marital Status: Interpersonal Safety: Not At Risk (02/28/2025) Received from [facility] Humiliation, Afraid, Rape, and Kick questionnaire Fear of Current or Ex-Partner: No Emotionally Abused: No Physically Abused: No Sexually Abused: No Housing Instability: Low Risk (02/28/2025) Received from [facility] Housing Stability Vital Sign Unable to Pay [...] Sleep apnea. Depression OARRS: Reviewed. Scribe Statement: Susan Galindo CNA, scribed for and in the presence of DARRICK SAUER PA-C who performed the above service. Susan Anderson CNA 03/10/25 1033 Susan Anderson CNA 03/10/25 1040 Darrick Sauer PA-C 03/10/25 1049 documented in this encounter [facility] 03-01-2025 History of Present illness Narrative Associated [...] (65 Fe) MG tablet 1 tablet, Daily Uhqfcwkkixk-Aktjifnde-Zqfhjf (Trelegy Ellipta) 100-62.5-25 MCG/ACT aerosol powder 1 [...] HISTORY Past Medical History: Diagnosis Date Alcoholism ([facility]) ( quit drinking 25 years ago) Anxiety and depression Bronchitis Chicken pox CKD (chronic kidney disease), symptom management only, stage 4 (severe) ([facility]) Claudication of calf muscles COPD (chronic obstructive pulmonary disease) ([facility]) Coronary artery disease Depression with anxiety GERD (gastroesophageal reflux disease) Heart disease High blood pressure High cholesterol History of medical problems Hernia History of migraine headaches History of psychiatric care Kidney disease Lung cancer ([facility]) JITENDRA (obstructive sleep apnea) Peripheral [...] Addressed This Visit 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 Established with [facility] Cardiology Current meds: asa, amlodipine, statin, [...] (HCC) Is prescribed trelegy inhaler Relevant Medications Xroxxkrgcgp-Fxezmcico-Dnzexp (Trelegy Ellipta) 100-62.5-25 MCG/ACT aerosol powder Primary [...] Pain Mgmt Cervical spondylosis Referred to Dr Dilip dobson mgmt Xr 02/08/25 DDD mod, C5-C6 and [...] Problem(s): Cervical spondylosis Referred to Dr Dilip dobson mgmt Xr 02/08/25 DDD mod, C5-C6 and C6 C7 Associated Problem(s): Pulmonary hypertension (HCC) Noted on ECHO from 02/18/25 pressure 46 Associated Problem(s): Chronic kidney disease, stage 4 (severe) (HCC) Continue with Nephrology Check labs yearly and prn Associated Problem(s): 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 Established with [facility] Cardiology Current meds: asa, amlodipine, statin, [...] raulito, b kelsy, documented in this encounter [facility] 03-01-2025 Instructions Susan Watson NP - 03/01/2025 1:40 PM EDT Please call dr amezcua's office to get an appt documented in this encounter [facility] 01-27-2025 History of Present illness Narrative [facility] [address] [place] [address] Patient: Kel Castillo JrBren Sex: male : 1955 Age: 69 y.o. PCP: SUSAN WATSON, SALES REPRESENTATIVE HEALTH INSURANCE-VP PUBLISHER DEVELOPMENT 01/27/2025 Kel Castillo Jr. is here for [...] kidney disease COPD (chronic obstructive pulmonary disease) ([facility]) Coronary artery disease Hypertension Neck pain History [...] Resource Strain: Medium Risk (07/22/2023) Received from [facility] Overall Financial Resource Strain (CARDIA) Difficulty of Paying Living Expenses: Somewhat hard Food Insecurity: No Food Insecurity (01/27/2025) Hunger Screening Food Insecurity - Worry: Never True Food Insecurity - Inability: Never True Transportation Needs: No Transportation Needs (07/22/2023) Received from [facility] PRAPARE - Transportation Lack of Transportation (Medical): No Lack of Transportation (Non-Medical): No Physical Activity: Inactive (07/22/2023) Received from [facility] Exercise Vital Sign Days of Exercise per Week: 0 days Minutes of Exercise per Session: 0 min Stress: Stress Concern Present (07/22/2023) Received from [facility] [place] [employer] - Occupational Stress Questionnaire Feeling of Stress : Very much Social Connections: Moderately Isolated (07/22/2023) Received from [facility] Social Connection and Isolation Panel [NHANES] Frequency of Communication with Friends and Family: More than three times a week Frequency of Social Gatherings with Friends and Family: Twice a week Attends Lutheran Services: Never Active Member of Clubs or Organizations: No Attends Club or Organization Meetings: Never Marital Status: Interpersonal Safety: Unknown (10/03/2023) Received from [facility] Safety & Environment Fear of Current or Ex-Partner: Not on file Emotionally Abused: Not on file Physically Abused: Not on file Sexually Abused: Not on file Physically or Sexually Abused: Not on file Housing Instability: Low Risk (07/22/2023) Received from [facility] Housing Stability Vital Sign Unable to Pay [...] PA-C 01/27/25 1115 documented in this encounter [facility] [employer] [facility] 01-27-2025 Instructions Susan Anderson CNA - 01/27/2025 [...] nearest emergency room. documented in this encounter [facility] 01-19-2025 History of Present illness Narrative Neck [...] (ANTARA) 43 mg, Oral, Daily with breakfast Lgxmhjhqxgu-Pnvoeadmc-Zdreaw (Trelegy Ellipta) 100-62.5-25 MCG/ACT aerosol powder 1 [...] HISTORY Past Medical History: Diagnosis Date Alcoholism ([facility]) ( quit drinking 25 years ago) Anxiety and depression ([facility]) Bronchitis Chicken pox CKD (chronic kidney disease), symptom management only, stage 4 (severe) ([facility]) Claudication of calf muscles ([facility]) COPD (chronic obstructive pulmonary disease) ([facility]) Coronary artery disease (CMS/HCC) Depression with anxiety [...] OLANZapine (ZyPREXA) 5 MG tablet Primary hypertension (CMS/[facility]) Please check blood pressure daily and record DASH diet Limit caffeine Take medication as directed Contact office if chest pain, pressure, dizziness, shortness of breath, swelling legs Recommend slow position changes Current meds; raulito, b kelsy, calcium channel kelsy, imdur Neck pain - Primary Last appt: recommended Ice to affected area 4-5 times daily, Stretching exercises given, Trial baclofen at , december try 1/2 pill, No NSAID d/t [...] Trial prednisone taper documented in this encounter [facility] 01-19-2025 Instructions Susan Watson NP - 01/19/2025 1:00 PM EDT Pain mgmt documented in this encounter [facility] 11-19-2024 History of Present illness Narrative Associated [...] (ANTARA) 43 mg, Oral, Daily with breakfast Viifeeryajc-Tdiqucnuk-Rnehir (Trelegy Ellipta) 100-62.5-25 MCG/ACT aerosol powder 1 [...] HISTORY Past Medical History: Diagnosis Date Alcoholism ([facility]) ( quit drinking 25 years ago) Anxiety and depression ([facility]) Bronchitis Chicken pox CKD (chronic kidney disease), symptom management only, stage 4 (severe) ([facility]) Claudication of calf muscles ([facility]) COPD (chronic obstructive pulmonary disease) ([facility]) Coronary artery disease ([facility]) Depression with anxiety GERD (gastroesophageal reflux disease) Heart disease High blood pressure ([facility]) High cholesterol ([facility]) History of medical problems Hernia History of migraine headaches History of psychiatric care Kidney disease Lung cancer ([facility]) JITENDRA (obstructive sleep apnea) Peripheral vascular disease ([facility]) Umbilical hernia URTI (infection of [...] Therapy Chronic kidney disease, stage 4 (severe) ([facility]) Continue with Nephrology Check labs yearly and prn EDITH (generalized anxiety disorder) ([facility]) Current meds: wellbutrin, buspar, sertraline Pt's daughter is a pysch 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, I have given daughter present today options for addressing anxiety: Buspar TID, olanzapine at 2.5mg or quetiapine She will talk with sister and go from there Primary hypertension ([facility]) Please check blood pressure daily [...] tablet Associated Problem(s): EDITH (generalized anxiety disorder) ([facility]) Current meds: wellbutrin, buspar, sertraline Pt's daughter is a tita 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, I have given daughter present today options for addressing anxiety: Buspar TID, olanzapine at 2.5mg or quetiapine She will talk with sister and go from there Associated Problem(s): Chronic kidney disease, stage 4 (severe) ([facility]) Continue with Nephrology Check labs [...] statin Associated Problem(s): 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 (CMS/HCC) Established with [facility] Cardiology Current meds: asa, amlodipine, statin, plavix, imdur, raulito, b kelsy, and prn nitro Associated Problem(s): Chronic obstructive pulmonary disease, unspecified Is prescribed trelegy inhaler documented in this encounter [facility] 11-19-2024 Instructions Susan Watson NP - 11/19/2024 1:00 PM EDT Anxiety; we could try increase buspirone to 15mg three times daily Or consider adding olanzapine at 2.5mg at bed time ??low dose of quetiapine like 25mg at bedtime I will order PT and speech therapy at [facility] [place]: try stretching exercises, baclofen 10mg pill at bedtime as needed for muscle spasms documented in this encounter [facility] 10-27-2024 Evaluation note Diagnosis Onset Date Resolution [...] January 19, 025 4:22pm Hyperlipemia acute January 19, 2 025 4:22pm Hypertensive chronic kidney disease with stage 1 through stage 4 chronic ki acute January 19, 2025 4:22pm [facility] Work Phone: [phone]) 572-459703[facility]04-[facility] Chief Complaint: [...] occluded right coronary artery. 2. Severe 3-vessel mechoopda coronary artery disease. 3. Patent left internal [...] Laboratory Report FINAL IMPRESSIONS: 1. Severe 3-vessel mechoopda coronary artery disease. 2. A 2/3 bypass grafts patent; the radial artery graft to the posterior descending artery is occluded. 3. Severe, heavily calcific lesion of the right common femoral artery; this is a new angiographic finding. Assessment: Coronary a (more content not included)...[facility] 10-12-2024 Instructions* Patient Instructions* Ebony Trent DO - 10/12/2024 11:31 AM EST Please do physical therapy and speech therapy. Please follow-up with your sleep apnea doctor about a better mask as this can help memory. Follow-up in six months. He and his family may benefit from the following community resources: [facility] [employer]gencies on Aging -- , https://aging.[place].gov/about-us/who-we-are/cnvj-xqfgaikh-mp-aging Visit your local Senior Center to participate in stimulating activities and socialize with others -https://www.careEzFlop - A First of Its Kind Flip Flopio.org/rxst38_gzca_jtxvxb_fkzsgaj.htm He can use strategies to help optimize [...] for Neurodegenerative Delay (MIND) diet, is recommended. 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 Re-evaluation in approximately 18-24 months (or as needed). [facility]25 NoteHNO ID: [id number] Author: EBONY TRENT DO Service: ? Author Type: Physician Type: Progress Notes Filed: 10/12/2024 14:47 Note Text: [facility] Follow up/ Established patient visit Individuals who were included in, or assisted with the encounter were: Samir Castillo Ebony Black DO Chief Complaint/Issues: Samir Castillo is a 69 year old male seen in the [facility] for: Memory loss Most [...] here for follow-up of (more content not included)...[facility]03-03-2025 History of Present illness Narrative* Ebony Trent DO - 10/12/2024 11:28 AM EST Images from the original note were not included. [facility] General Neurology Follow up/ Established patient visit Individuals who were included in, or assisted with the encounter were: Samir Castillo Ebony Black DO Chief Complaint/Issues: Samir Castillo is a 69 year old male seen in the [facility] for: Memory loss Most [...] 1/2 TABLETS BY MOUTH EVERY DAY omega 9-jyq-fjx-fish oil (FISH OIL) 100-160-1,000 mg cap Take [...] which included preparing to see the patient, sitb-lo-zvni patient care, completing clinical documentation, obtaining and/or [...] (Recommend sleep study) documented in this encounterOhio [facility]03-03-2025 NoteHNO ID: [id number] Author: SANDRA JAY MA Service: ? Author Type: Test Engineer Nuclear Equipment Type: Progress Notes Filed: 10/12/2024 14:47 Note [...] Sleep Apnea Probability Score: 70 (Recommend sleep study)[facility]02-27-[facility] History of Present illness Narrative* Susan [...] no compliance problems. Hypertensive end-organ damage includes CAD/IA. Heart Problem This is a chronic problem. [...] (ANTARA) 43 mg, Oral, Daily with breakfast Xepjffgudgb-Smitvapyr-Tokfoe (Trelegy Ellipta) 100-62.5-25 MCG/ACT aerosol powder 1 [...] HISTORY Past Medical History: Diagnosis Date Alcoholism ([facility]) ( quit drinking 25 years ago) Anxiety and depression ([facility]) Bronchitis Chicken pox CKD (chronic kidney disease), symptom management only, stage 4 (severe) ([facility]) Claudication of calf muscles ([facility]) COPD (chronic obstructive pulmonary disease) ([facility]) Coronary artery disease ([facility]) Depression with anxiety GERD (gastroesophageal reflux disease) Heart disease High blood pressure ([facility]) High cholesterol ([facility]) History of medical problems Hernia History of migraine headaches History of psychiatric care Kidney disease Lung cancer ([facility]) JITENDRA (obstructive sleep apnea) Peripheral vascular disease ([facility]) Umbilical hernia URTI (infection of [...] and neuropsych testing 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 (CMS/HCC) - Primary Current meds: plavix, amlodipine, statin, b kelsy, nitroglycerin prn No acute symptoms, cont with [facility] Cardiology Relevant Medications clopidogrel (Plavix) 75 MG tablet isosorbide mononitrate ER (Imdur) 60 MG 24 hr tablet metoprolol tartrate (Lopressor) 50 MG tablet Mixed hyperlipidemia (CMS/HCC) On statin and fenofibrate Check labs yearly and prn dose changes Relevant Medications atorvastatin (Lipitor) 80 MG tablet fenofibrate micronized (Antara) 43 MG capsule Chronic kidney disease, stage 4 (severe) ([facility]) Continue with Nephrology Gastroesophageal reflux disease without esophagitis Recommendations: freq small meals, nothing to eat or drink at least 2 hours prior to bed, limit caffeine, alcohol, as well as spicy foods Meds to limit or avoid if possible: NSAIDS Elevate HOB if possible Current med: pepcid Relevant Medications famotidine (Pepcid) 20 MG tablet EDITH (generalized anxiety disorder) ([facility]) Current meds: wellbutrin XL, buspar, sertraline, and trazodone EDITH 7=4 Had recent neuropsych testing has fu appt in a few weeks Relevant Medications sertraline (Zoloft) 100 MG tablet traZODone (Desyrel) 100 MG tablet Chronic obstructive pulmonary disease, unspecified ([facility]) Current meds: albuterol, trelegy Cannot afford trelegy, but does help breathing #2 samples trelegy: /, XM5N, exp 01/04 Recurrent major depressive disorder, in full remission ([facility]) Current med: wellbutrin, sertralin, and trazodone PHQ 9=9 Primary hypertension ([facility]) Please check blood pressure daily [...] MG tablet Other Visit Diagnoses Other hyperlipidemia ([facility]) Relevant Medications atorvastatin (Lipitor) 80 MG tablet fenofibrate micronized (Antara) 43 MG capsule Recurrent major depression in partial remission (HCC) ([facility]) Relevant Medications buPROPion XL (Wellbutrin XL) 300 MG 24 hr tablet busPIRone (Buspar) 15 MG tablet sertraline (Zoloft) 100 MG tablet traZODone (Desyrel) 100 MG tablet * Susan Watson NP - 10/08/2024 7:12 AM ESTAssociated Problem(s): Recurrent major depressive disorder, in full remission ([facility]) Current med: wellbutrin, sertralin, and trazodone PHQ 9=9 * Susan Watson NP - 10/08/2024 7:11 AM ESTAssociated Problem(s): Mixed hyperlipidemia ([facility]) On statin and fenofibrate Check labs yearly and prn dose changes * Susan Watson NP - 10/08/2024 7:10 AM ESTAssociated Problem(s): EDITH (generalized anxiety disorder) ([facility]) Current meds: wellbutrin XL, buspar, [...] AM ESTAssociated Problem(s): 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 (CMS/HCC) Current meds: plavix, amlodipine, statin, b kelsy, nitroglycerin prn No acute symptoms, cont with [facility] Cardiology * Susan Watson NP - 10/08/2024 7:06 AM ESTAssociated Problem(s): Chronic obstructive pulmonary disease, unspecified (CMS/HCC) Current meds: albuterol, trelegy Cannot afford trelegy, but does help breathing #2 samples trelegy: 100/25, XM5N, exp 01/[address] [facility]02-27-2025 Instructions* Patient Instructions* Susan Watson NP - 10/08/2024 1:40 PM EST No med dose changes documented in this [facility]01-28-2025 NoteHNO ID: [id number] Author: MISYT POLO, PhD Service: ? Author Type: Psychologist Type: Progress Notes Filed: 09/10/2024 16:35 Note Text: [facility] Department of Neurology Section of Neuropsychology Neuropsychological Evaluation Report CONFIDENTIAL Patient: Samir Castillo Date of : 1955 Referred by: Ebony Black MD (Neurology) Education: 10 Handedness: R Language(s): Brazilian Date of Evaluation: 09/08/2024 Mr. Castillo is [...] no Problems with mother's /delivery: no Early SALES REPRESENTATIVE [employer] infection, high fever, significant childhood illness: no SCHOOL HISTORY: Years of education completed: 10; left school early because he did not like it. 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 Castillo is [...] no Problems with mother's /delivery: no Early SALES REPRESENTATIVE RURAL POWER infection, high fever, significant childhood illness: no SCHOOL HISTORY: Years of education completed: 10; left school early because he did not like it. 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 [place] non-verbal memory test, new learning was similarly [...] may benefit from the following community resources: [facility] [employer]gencies on Aging -- , https://aging.[place].gov/about-us/who-we-are/lvtj-bxhqwobl-qq-aging Visit your local Senior Center to participate in stimulating activities and socialize with others -https://www.careokio.org/inie92_xbps_ckjafv_isjgaof.htm He can use strategies to help optimize [...] for Neurodegenerative Delay (MIND) diet, is recommended. https://www.abhay.nih.gov/health/dfet-kc-ue-know-ab rps-vcof-dgn-yyvgqsfsef-jscraftlmg-hldnphy If he is to continue doing complex tasks such as financial market dealer on his own, his family members are encouraged to routinely review his work and assist as necessary. Re-evaluation in approximately 18-24 months (or as needed). These results have not been reviewed with the patient, but he will be provided access to this note via [employer]. It has been a pleasure to participate in his care. Please feel free to contact me if you have any questions regarding this report or my recommendations. Misty Polo, PhD, ABPP-CN Board Certified Clinical Neuropsychologist Neurological [place] The purpose of this evaluation was explained [...] = 2 hours Neuropsychological test administration/scoring by hydrate control tender = 4 hours TESTS ADMINISTERED: Waite Anxiety Inventory, Waite Depression Inventory-2, Mas Judgment of Line Orientation (Form H), [place] Naming Test-2, Brief Visuospatial Memory Test- Revised (Form 2), Clinical Interview, Jessie Chowdhruy Executive Function System (Color-Word Interference), Castro Verbal Learning Test-Revised (Form 2), Language Screen, Performance Validity Testing, Gregory Osterrieth Complex Figure Test (Miles System, copy), [place] Making Test (Parts A & B), Verbal Fluency (CFL, Animals/Fruits/Vegetables), Veena Adult Intelligence Scale-IV (Digit Span, Coding, Matrix Reasoning), Veena Memory Scale-IV (Logical Memory), [place] Card Sorting Test - 128 documented in this encounterOhio [facility]11-11-[facility] History of Present illness Narrative* Jayy [...] Addressed This Visit 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 Continue current regimen. CKD (chronic kidney disease) stage 4, GFR 15-29 ml/min ([facility]) Following with Nephrology. Avoid nephrotoxic agents. Continue to monitor. Primary hypertension ([facility]/HCC) - Primary Currently taking amlodipine Imdur Metoprolol [...] referral to Physical Therapy documented in this [facility]11-06-2024 Instructions* Patient Instructions* Jayy Coronado NP - [...] TO THE EMERGENCY ROOM!!! documented in this [facility]10-01-2024 History of Present illness Narrative* Claire Vilchis [...] PATIENT PRESENTS WITH AN IMPLANTABLE OR ATTACHED SHIPS EQUIPMENT ENGINEER: No RADIOLOGY DEPARTMENT: CT; Exam(s) Completed: Brain PERIPHERAL IV DATA: Not applicable SIGNED BY: KORY Bolivar May 12, 2024 8:35 AM documented in this encounterOhio [facility]10-01-2024 NoteHNO ID: [id number] Author: CLAIRE VILCHIS CT Service: ? Author Type: Gas Load Dispatcher Type: Progress Notes Filed: 05/12/2024 08:35 Note [...] PATIENT PRESENTS WITH AN IMPLANTABLE OR ATTACHED SHIPS EQUIPMENT ENGINEER: No RADIOLOGY DEPARTMENT: CT; Exam(s) Completed: Brain PERIPHERAL IV DATA: Not applicable SIGNED BY: KORY Bolivar May 12, 2024 8:35 [facility]09-23-2024 Instructions* Patient Instructions* Ebony Trent DO - 05/04/2024 10:[address] scan of brain Physical therapy Follow-up after neuropsych Please do not climb ladders or do other activities for high fall risk. documented in this encounterOhio [facility] Hospital09-23-2024 History of Present illness Narrative* Ebony Trent DO - 05/04/2024 9:30 AM EDT Images from the original note were not included. [facility] Follow up/ Established patient visit Individuals who were included in, or assisted with the encounter were: Samir Castillo Ebony Black DO Chief Complaint/Issues: Samir Castillo is a 69 year old male seen in the [facility] for: Memory loss Most [...] over medications. 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 MOCA December 2021 [...] 1/2 TABLETS BY MOUTH EVERY DAY omega 8-hqf-cjb-fish oil (FISH OIL) 100-160-1,000 mg cap Take [...] which included preparing to see the patient, ufhv-ip-whgh patient care, completing clinical documentation, obtaining and/or [...] and warrants attention documented in this encounterOhio Valley [facility] Hospital09-23-2024 NoteHNO ID: [id number] Author: EBONY TRENT DO Service: ? Author Type: Physician Type: Progress Notes Filed: 05/04/2024 22:17 Note Text: [facility] General Neurology Follow up/ Established patient visit Individuals who were included in, or assisted with the encounter were: Samir Castillo Ebony Black DO Chief Complaint/Issues: Samir Castillo is a 69 year old male seen in the [facility] for: Memory loss Most [...] over medications. 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 MOCA December 2021 [...] 50 mg tablet,extended release (more content not included)...[facility]02-08-2024 History of Present illness Narrative* Shaikh [...] kidney disease) stage 4, GFR 15-29 ml/min ([facility]) Has an appointment with Nephrology. Avoid NSAIDS. C/w current regimen. 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 On ASA, BB, Imdur, plavix, statin Denies CP, SOB, palpitations. Following [facility] cardiology. * Shaikh Cornelio MD - [...] in the morning. Take with meals. 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 On ASA, BB, Imdur, plavix, statin Denies CP, SOB, palpitations. Following [facility] cardiology. Relevant Medications aspirin 81 MG EC tablet isosorbide mononitrate ER (Imdur) 60 MG 24 hr tablet metoprolol tartrate (Lopressor) 50 MG tablet clopidogrel (Plavix) 75 MG tablet Other Relevant Orders CBC and differential Comprehensive metabolic panel Other hyperlipidemia ([facility]) Check Lipid panel. Relevant Medications atorvastatin (Lipitor) 80 MG tablet fenofibrate micronized (Antara) 43 MG capsule Other Relevant Orders Lipid panel CKD (chronic kidney disease) stage 4, GFR 15-29 ml/min ([facility]) Has an appointment with Nephrology. Avoid NSAIDS. C/w current regimen. Relevant Orders CBC and differential Comprehensive metabolic panel Protein, urine, random Creatinine, urine, random Gastroesophageal reflux disease without esophagitis Relevant Medications famotidine (Pepcid) 20 MG tablet EDITH (generalized anxiety disorder) ([facility]) Improved now. C/w current regimen. [...] disease, unspecified COPD type (CMS/HCC) Relevant Medications Ucunlbkpxpj-Zxjvxfayy-Rvmyjv (Trelegy Ellipta) 100-62.5-25 MCG/ACT aerosol powder No follow-ups on file. documented in this encounterC[id number] Instructions* Patient Instructions* Ebony Kaufman DO - 08/15/2022 4:17 PM EST Please work with your doctor on the sleep apnea and psychiatrist for depression. Follow-up in 6 months. documented in this encounterOhio [facility]01-04-2023 History of Present illness Narrative* Ebony Kaufman DO - 08/15/2022 3:47 PM EST Images from the original note were not included. [facility] Follow up/ Established patient visit Individuals who were included in, or assisted with the encounter were: Samir Castillo Ebony Kaufman DO Chief Complaint/Issues: Samir Castillo is a 67 year old male seen in the [facility] for: Follow-up Most Recent [...] AND 1/2 TABLETS BY MOUTH EVERY DAY Rzytqfosfhabz-Vwnggpdf-Pkqisd (MULTIVITAMIN 50 PLUS) tab Take 1 tablet by mouth once daily. omega 1-fbh-ihv-fish oil (FISH OIL) 100-160-1,000 mg cap Take [...] which included preparing to see the patient, jkbk-hm-encj patient care, completing clinical documentation, obtaining and/or reviewing separately obtained history, performing a medically appropriate examination, counseling and educating the pat ient/family/caregiver, and ordering medications, tests, or procedures. Ebony Kaufman DO documented in this encounterOhio Valley [facility] Hospital11-29-2022 Evaluation note* Encounter Date Diagnosis Assessment [...] mmol/L. 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 documented in this encounterOhio Valley [facility] Hospital08-30-2022 History of Present illness Narrative* Ebony Kaufman DO - 04/10/2022 10:11 AM EDT Images from the original note were not included. [facility] New Patient Evaluation Consulting Provider: Jessie Bright [id number] [facility] [id number] Individuals who were included in, or assisted with the encounter were: Samir Castillo Ebony Kaufman DO Chief Complaint/Issues: Samir Castillo is a 66 year old male seen in the [facility] for: Memory HPI: Here [...] notices problems with both short term and group home memory Language: yes, word finding problems. [...] AND 1/2 TABLETS BY MOUTH EVERY DAY Tuqffuiyrbzss-Twaxegsk-Bfcdkj (MULTIVITAMIN 50 PLUS) tab Take 1 tablet by mouth once daily. omega 9-ewb-ufg-fish oil (FISH OIL) 100-160-1,000 mg cap Take [...] which included preparing to see the patient, wcth-hs-quuy patient care, completing clinical documentation, obtaining and/or reviewing separately obtained history, performing a medically appropriate examination, and counseling and educating the patient/family/caregiver. Ebony Kaufman DO documented in this encounter[facility]* Encounter Date Diagnosis Assessment Notes Treatment Notes Treatment Clinical Notes Mar, Depression, major, recurrent, moderate (ICD-10 - F33.1) [facility] Other 07-25-2022 Evaluation note* Encounter Date Diagnosis Assessment Notes Treatment Notes Treatment Clinical Notes Feb, Depression, major, recurrent, moderate (ICD-10 - F33.1) [facility] Other 07-19-2022 Evaluation note* Encounter Date Diagnosis [...] Sleep apnea, unspecified type (ICD-10 - G47.30) [facility] Other 07-01-2022 Miscellaneous Notes* Telephone Encounter - [...] Roche Message text documented in this encounterOhio [facility]07[facility]22 History of Present illness Narrative* Brayan Trent CRT - 02/09/2022 10:41 AM EDT PULM FUNCTION SMARTBLOCK: Provider: Prince Aby MD Spirometry w/BD: 1 System: MC9 - [id number] documented in this encounterOhio [facility] Hospital06-30-2022 History of Present illness Narrative* RT [...] 2022 4:21 PM documented in this encounterOhio [facility] Hospital06-20-2022 Evaluation note* Encounter Date Diagnosis Assessment [...] relief. Also reports that he saw his machining supervisor recently who does not think that his shortness of breath is related to his heart. He did have an appointment with [place] [facility] but has since decided to see pulmonology in [place]. Given his PFT and CT results I [...] with Dr. Hurtado at their upcoming appointment. [facility] Other 05-27-2022 Evaluation note* Encounter Date Diagnosis Assessment Notes Treatment Notes Treatment Clinical Notes December, Obstructive lung disease (ICD-10 - J44.9) December, Pulmonary nodule (ICD-10 - R91.1) [facility] Other 05-23-2022 Evaluation note* Encounter Date Diagnosis Assessment Notes Treatment Notes Treatment Clinical Notes December, Shortness of breath (ICD-10 - R06.02) [facility] Other 05-17-2022 Evaluation note* Encounter Date Diagnosis [...] next month or so we will recheck. [facility] Other 05-13-2022 History of Present illness Narrative* Jessie Bright MD - 12/22/2021 8:41 AM EDT Images from the original note were not included. [facility] New Patient Evaluation Consulting Provider: SELF Individuals who were included in, or assisted with the encounter were: Samir Castillo Jessie Bright MD Chief Complaint/Issues: aSmir Castillo is a 66 year old male seen in the [facility] for: 1. Memory loss. [...] notices problems with both short term and terminal makeup operator memory Language: yes, word finding problems. Knows [...] AND 1/2 TABLETS BY MOUTH EVERY DAY Ngriintcwdvuu-Zaswagkx-Bljbae (MULTIVITAMIN 50 PLUS) tab Take 1 tablet by mouth once daily. omega 3-rhj-mbs-fish oil (FISH OIL) 100-160-1,000 mg cap Take [...] which included preparing to see the patient, jqha-yg-lumd patient care, completing clinical documentation and performing a medically appropriate examination. Jessie rBight MD documented in this encounterOhio [facility] Hospital05-09-2022 Evaluation note* Encounter Date Diagnosis Assessment Notes Treatment Notes Treatment Clinical Notes December, Depression, major, recurrent, moderate (ICD-10 - F33.1) [facility] Other 10-12-2021 Evaluation note* Encounter Date Diagnosis [...] metoprolol. He follow-up with Dr. Rubio, his machining supervisor in [place]. He stated that his heart looks fine. [...] at home also runs between 140-150 systolic. [place] systolic blood pressure at home should be below 130s. He was advised to increase amlodipine to 10 mg daily and continue monitor home blood pressure. He has no edema. Continue low-salt diet. 12 May, 2021 CAD (coronary artery disease) of artery bypass graft (ICD-10 - I25.810) Patient has a remote history of CABG. He does see cardiology on an annual basis. He denies episodes of congestive heart failure or chest pain. He is not on any diuretics. 12 May, 2021 Hyperlipemia (ICD-10 - E78.5) He follow-up with his PCP Dr. Arellano for lipid profile. 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 [facility] [employer] Other evalubdjgy noteNouniversity of [facility] Ze[facility] Other Evheksgole note* Diagnosis Cognitive impairment, mild, so stated- Primary Mild cognitive impairment, so stated 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) Other persistent mental disorders due to conditions classified elsewhere Depression, unspecified depression type documented in this encounter [facility] note* Diagnosis Shortness of breath documented in this encounter [facility] note* Diagnosis Recurrent major depression in partial remission (HCC)- Primary Major depressive disorder, recurrent episode, in partial or unspecified remission MCI (mild cognitive impairment) Mild cognitive impairment, so stated documented in this encounter [facility] noteNo assessment information availablePremier Health Ctr Work Phone: Evaluckycr note* Diagnosis MCI (mild cognitive impairment)- Primary Mild cognitive impairment, so stated documented in this encounter [facility] noteNort Zeus Other Evaluhrcwh note* Diagnosis Traumatic complete tear of left rotator cuff, subsequent encounter- Primary Recurrent major depression in partial remission (HCC) ([facility]/HCC) Major depressive disorder, recurrent episode, in partial or unspecified remission Other hyperlipidemia (CMS/HCC) EDITH (generalized anxiety disorder) (CMS/HCC) Generalized anxiety disorder CKD (chronic kidney disease) stage 4, GFR 15-29 ml/min (CMS/HCC) Chronic kidney disease, Stage IV (severe) Gastroesophageal reflux disease without esophagitis Esophageal reflux 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 (CMS/HCC) Primary hypertension (CMS/HCC) Unspecified essential hypertension Chronic obstructive pulmonary disease, unspecified COPD type (CMS/HCC) [facility] Diagnosis Onset Date Resolution Status Anemia acute CAD (coronary artery disease) of artery bypass graft acute Chronic kidney disease, stage 3b acute Hyperkalemia acute Hyperlipemia acute [id number] acute [facility] Work Phone: Evaluation note* Diagnosis Dyspnea and respiratory abnormalities- Primary Other dyspnea and respiratory abnormality Centrilobular emphysema (HCC) Other emphysema Class 1 obesity due to excess calories with serious comorbidity and body mass index (BMI) of 32.0 to 32.9 in adult Sleep-disordered breathing Other sleep disturbances Memory loss- Primary Abnormality of gait documented in this encounter [facility]* Diagnosis Dyspnea and respiratory abnormalities- Primary Other dyspnea and respiratory abnormality Centrilobular emphysema (HCC) Other emphysema Class 1 obesity due to excess calories with serious comorbidity and body mass index (BMI) of 32.0 to 32.9 in adult Sleep-disordered breathing Other sleep disturbances Memory loss documented in this encounter [facility]* Diagnosis Traumatic complete tear of [...] esophagitis Esophageal reflux 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 (CMS/HCC) Primary hypertension (CMS/HCC) Unspecified essential hypertension Chronic obstructive pulmonary disease, unspecified COPD type (CMS/HCC) Chronic obstructive pulmonary disease, unspecified COPD type (CMS/HCC)- Primary 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 ([facility]/HCC) CKD (chronic kidney disease) stage 4, GFR 15-29 ml/min ([facility]/HCC) Chronic kidney disease, Stage IV (severe) Gastroesophageal reflux disease without esophagitis Esophageal reflux Recurrent major depressive disorder, in full remission ([facility]) Other hyperlipidemia ([facility]) EDITH (generalized anxiety disorder) ([facility]) Generalized anxiety disorder Recurrent major depression in partial remission (HCC) ([facility]) Major depressive disorder, recurrent episode, in partial or unspecified remission Primary hypertension ([facility]) Unspecified essential hypertension Primary hypertension ([facility])- Primary Unspecified essential hypertension Other hyperlipidemia ([facility]) 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 ([facility]) Frequent falls Functional gait abnormality CKD (chronic kidney disease) stage 4, GFR 15-29 ml/min ([facility]/HCC) Chronic kidney disease, Stage IV (severe) documented in this encounter [facility]Evaluation [facility]* Diagnosis Traumatic complete tear of left rotator cuff, subsequent encounter- Primary Recurrent major depression in partial remission (HCC) ([facility]) Major depressive disorder, recurrent episode, in partial or unspecified remission Other hyperlipidemia ([facility]) EDITH (generalized anxiety disorder) ([facility]) Generalized anxiety disorder CKD (chronic kidney disease) stage 4, GFR 15-29 ml/min ([facility]/HCC) Chronic kidney disease, Stage IV (severe) Gastroesophageal reflux disease without esophagitis Esophageal reflux 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 ([facility]) Primary hypertension ([facility]) Unspecified essential hypertension Chronic obstructive pulmonary disease, unspecified COPD type ([facility]) Chronic obstructive pulmonary disease, unspecified COPD type ([facility])- Primary 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 ([facility]) CKD (chronic kidney disease) stage 4, GFR 15-29 ml/min ([facility]/HCC) Chronic kidney disease, Stage IV (severe) Gastroesophageal reflux disease without esophagitis Esophageal reflux Recurrent major depressive disorder, in full remission ([facility]) Other hyperlipidemia ([facility]) EDITH (generalized anxiety disorder) ([facility]) Generalized anxiety disorder Recurrent major depression in partial remission (HCC) ([facility]) Major depressive disorder, recurrent episode, in partial or unspecified remission Primary hypertension ([facility] Unspecified essential hypertension Primary hypertension ([facility])- Primary Unspecified essential hypertension Other hyperlipidemia ([facility]) 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 ([facility]) Frequent falls Functional gait abnormality CKD (chronic kidney disease) stage 4, GFR 15-29 ml/min ([facility]/HCC) Chronic kidney disease, Stage IV (severe) Recurrent major depression in partial remission (HCC) ([facility]) Major depressive disorder, recurrent episode, in partial or unspecified remission documented in this encounter [facility] HealthcareEvaluation note* Diagnosis Gastroesophageal reflux disease without esophagitis Esophageal reflux Recurrent major depression in partial remission (HCC) ([facility]) Major depressive disorder, recurrent episode, in partial or unspecified remission documented in this encounter [facility] HealthcareEvaluation note* Diagnosis Dyspnea and respiratory abnormalities- Primary Other dyspnea and respiratory abnormality Centrilobular emphysema ([facility]) Other emphysema Class 1 obesity due to excess calories with serious comorbidity and body mass index (BMI) of 32.0 to 32.9 in adult Sleep-disordered breathing Other sleep disturbances Major neurocognitive disorder ([facility])- Primary Unspecified persistent mental disorders due to conditions classified elsewhere JITENDRA (obstructive sleep apnea) Obstructive sleep apnea (adult) (pediatric) Chronic kidney disease, unspecified CKD stage Coronary artery disease, unspecified vessel or lesion type, unspecified whether angina present, unspecified whether mechoopda or transplanted heart Complaints of memory disturbance Memory loss [facility] Diagnosis Traumatic complete tear of left rotator cuff, subsequent encounter- Primary Recurrent major depression in partial remission (HCC) ([facility]) Major depressive disorder, recurrent episode, in partial or unspecified remission Other hyperlipidemia ([facility]) EDITH (generalized anxiety disorder) ([facility]) Generalized anxiety disorder CKD (chronic kidney disease) stage 4, GFR 15-29 ml/min ([facility]) Chronic kidney disease, Stage IV (severe) Gastroesophageal reflux disease without esophagitis Esophageal reflux 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 ([facility]) Primary hypertension ([facility]) Unspecified essential hypertension Chronic obstructive pulmonary disease, unspecified COPD type ([facility]) Chronic obstructive pulmonary disease, unspecified COPD type ([facility])- Primary 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 ([facility]) CKD (chronic kidney disease) stage 4, GFR 15-29 ml/min ([facility]/HCC) Chronic kidney disease, Stage IV (severe) Gastroesophageal reflux disease without esophagitis Esophageal reflux Recurrent major depressive disorder, in full remission ([facility]/HCC) Other hyperlipidemia ([facility]/HCC) EDITH (generalized anxiety disorder) ([facility]/HCC) Generalized anxiety disorder Recurrent major depression in partial remission (HCC) ([facility]/HCC) Major depressive disorder, recurrent episode, in partial or unspecified remission Primary hypertension ([facility]) Unspecified essential hypertension Primary hypertension ([facility])- Primary Unspecified essential hypertension Other hyperlipidemia ([facility]/HCC) 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 (CMS/HCC) Frequent falls Functional gait abnormality CKD (chronic kidney disease) stage 4, GFR 15-29 ml/min ([facility]/HCC) Chronic kidney disease, Stage IV (severe) Primary hypertension ([facility])- Primary Unspecified essential hypertension Chronic obstructive pulmonary disease, unspecified COPD type ([facility]) Chronic kidney disease, stage 4 (severe) ([facility]) 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 ([facility]) Gastroesophageal reflux disease without esophagitis Esophageal reflux EDITH (generalized anxiety disorder) ([facility]) Generalized anxiety disorder Recurrent major depressive disorder, in full remission ([facility]/HCC) Mixed hyperlipidemia ([facility]) Mixed hyperlipidemia MCI (mild cognitive impairment) Mild cognitive impairment, so stated Other hyperlipidemia ([facility]) Recurrent major depression in partial remission (HCC) ([facility]) Major depressive disorder, recurrent episode, in partial or unspecified remission [facility] Diagnosis Dyspnea and respiratory abnormalities- Primary Other dyspnea and respiratory abnormality Centrilobular emphysema (HCC) Other emphysema Class 1 obesity due to excess calories with serious comorbidity and body mass index (BMI) of 32.0 to 32.9 in adult Sleep-disordered breathing Other sleep disturbances Gait abnormality- Primary Abnormality of gait Memory loss Neck pain Cervicalgia [facility] Diagnosis Onset Date Resolution Status [...] acute October 27, 2 025 3:58pm [facility] Work Phone: Evaluation note* Diagnosis Traumatic complete tear of left rotator cuff, subsequent encounter- Primary Recurrent major depression in partial remission (HCC) ([facility]) Major depressive disorder, recurrent episode, in partial or unspecified remission Other hyperlipidemia EDITH (generalized anxiety disorder) ([facility]) Generalized anxiety disorder CKD (chronic kidney disease) stage 4, GFR 15-29 ml/min ([facility]/HCC) Chronic kidney disease, Stage IV (severe) Gastroesophageal reflux disease without esophagitis Esophageal reflux 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 ([facility]) Primary hypertension ([facility]) Unspecified essential hypertension Chronic obstructive pulmonary disease, unspecified COPD type ([facility]/HCC) Chronic obstructive pulmonary disease, unspecified COPD type ([facility])- Primary 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 ([facility]) CKD (chronic kidney disease) stage 4, GFR 15-29 ml/min ([facility]/HCC) Chronic kidney disease, Stage IV (severe) Gastroesophageal reflux disease without esophagitis Esophageal reflux Recurrent major depressive disorder, in full remission ([facility]) Other hyperlipidemia EDITH (generalized anxiety disorder) ([facility]) Generalized anxiety disorder Recurrent major depression in partial remission (HCC) ([facility]) Major depressive disorder, recurrent episode, in partial or unspecified remission Primary hypertension ([facility]) Unspecified essential hypertension Primary hypertension ([facility])- Primary Unspecified essential hypertension Other hyperlipidemia 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 ([facility]) Frequent falls Functional gait abnormality CKD (chronic kidney disease) stage 4, GFR 15-29 ml/min ([facility]/HCC) Chronic kidney disease, Stage IV (severe) Primary hypertension ([facility])- Primary Unspecified essential hypertension Chronic obstructive pulmonary disease, unspecified COPD type ([facility]/HCC) Chronic kidney disease, stage 4 (severe) ([facility]) 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 ([facility]) Gastroesophageal reflux disease without esophagitis Esophageal reflux EDITH (generalized anxiety disorder) ([facility]) Generalized anxiety disorder Recurrent major depressive disorder, in full remission ([facility]) Mixed hyperlipidemia ([facility]) Mixed hyperlipidemia MCI (mild cognitive impairment) Mild cognitive impairment, so stated Other hyperlipidemia Recurrent major depression in partial remission (HCC) ([facility]/HCC) Major depressive disorder, recurrent episode, in partial or unspecified remission Other hyperlipidemia EDITH (generalized anxiety disorder) ([facility] [facility]) Generalized anxiety disorder Recurrent major depression in partial remission (HCC) ([facility]) Major depressive disorder, recurrent episode, in partial or unspecified remission documented in this encounter [facility]* Diagnosis Traumatic complete tear of left rotator cuff, subsequent encounter- Primary Recurrent major depression in partial remission (HCC) ([facility]) Major depressive disorder, recurrent episode, in partial or unspecified remission Other hyperlipidemia EDITH (generalized anxiety disorder) ([facility]) Generalized anxiety disorder CKD (chronic kidney disease) stage 4, GFR 15-29 ml/min ([facility]) Chronic kidney disease, Stage IV (severe) Gastroesophageal reflux disease without esophagitis Esophageal reflux 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 ([facility]) Primary hypertension ([facility]) Unspecified essential hypertension Chronic obstructive pulmonary disease, unspecified COPD type ([facility]) Chronic obstructive pulmonary disease, unspecified COPD type ([facility])- Primary 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 ([facility]) CKD (chronic kidney disease) stage 4, GFR 15-29 ml/min ([facility]) Chronic kidney disease, Stage IV (severe) Gastroesophageal reflux disease without esophagitis Esophageal reflux Recurrent major depressive disorder, in full remission ([facility]) Other hyperlipidemia EDITH (generalized anxiety disorder) ([facility] [place]) Generalized anxiety disorder Recurrent major depression in partial remission (HCC) ([facility]) Major depressive disorder, recurrent episode, in partial or unspecified remission Primary hypertension ([facility] Unspecified essential hypertension Primary hypertension ([facility])- Primary Unspecified essential hypertension Other hyperlipidemia 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 ([facility]) Frequent falls Functional gait abnormality CKD (chronic kidney disease) stage 4, GFR 15-29 ml/min ([facility]HCC) Chronic kidney disease, Stage IV (severe) Primary hypertension ([facility])- Primary Unspecified essential hypertension Chronic obstructive pulmonary disease, unspecified COPD type ([facility]) Chronic kidney disease, stage 4 (severe) ([facility]) 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 ([facility]) Gastroesophageal reflux disease without esophagitis Esophageal reflux EDITH (generalized anxiety disorder) ([facility]) Generalized anxiety disorder Recurrent major depressive disorder, in full remission ([facility]) Mixed hyperlipidemia ([facility]) Mixed hyperlipidemia MCI (mild cognitive impairment) Mild cognitive impairment, so stated Other hyperlipidemia Recurrent major depression in partial remission (HCC) ([facility]) Major depressive disorder, recurrent episode, in partial or unspecified remission Primary hypertension ([facility]) Unspecified essential hypertension Other hyperlipidemia Recurrent major depression in partial remission (HCC) ([facility]) Major depressive disorder, recurrent episode, in partial or unspecified remission 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 ([facility]) Gastroesophageal reflux disease without esophagitis Esophageal reflux EDITH (generalized anxiety disorder) ([facility]) Generalized anxiety disorder documented in this encounter [facility]* Diagnosis Traumatic complete tear of left rotator cuff, subsequent encounter- Primary Recurrent major depression in partial remission (HCC) ([facility]) Major depressive disorder, recurrent episode, in partial or unspecified remission Other hyperlipidemia EDITH (generalized anxiety disorder) ([facility]) Generalized anxiety disorder CKD (chronic kidney disease) stage 4, GFR 15-29 ml/min ([facility]) Chronic kidney disease, Stage IV (severe) Gastroesophageal reflux disease without esophagitis Esophageal reflux 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 ([facility]) Primary hypertension ([facility]) Unspecified essential hypertension Chronic obstructive pulmonary disease, unspecified COPD type ([facility]) Chronic obstructive pulmonary disease, unspecified COPD type ([facility])- Primary 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 ([facility]) CKD (chronic kidney disease) stage 4, GFR 15-29 ml/min ([facility]) Chronic kidney disease, Stage IV (severe) Gastroesophageal reflux disease without esophagitis Esophageal reflux Recurrent major depressive disorder, in full remission ([facility]) Other hyperlipidemia EDITH (generalized anxiety disorder) ([facility]) Generalized anxiety disorder Recurrent major depression in partial remission (HCC) ([facility]) Major depressive disorder, recurrent episode, in partial or unspecified remission Primary hypertension ([facility] Unspecified essential hypertension Primary hypertension ([facility])- Primary Unspecified essential hypertension Other hyperlipidemia 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 ([facility]) Frequent falls Functional gait abnormality CKD (chronic kidney disease) stage 4, GFR 15-29 ml/min ([facility]) Chronic kidney disease, Stage IV (severe) Primary hypertension ([facility])- Primary Unspecified essential hypertension Chronic obstructive pulmonary disease, unspecified COPD type ([facility]) Chronic kidney disease, stage 4 (severe) ([facility]) 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 ([facility]) Gastroesophageal reflux disease without esophagitis Esophageal reflux EDITH (generalized anxiety disorder) ([facility]) Generalized anxiety disorder Recurrent major depressive disorder, in full remission ([facility]) Mixed hyperlipidemia ([facility]) Mixed hyperlipidemia MCI (mild cognitive impairment) Mild cognitive impairment, so stated Other hyperlipidemia Recurrent major depression in partial remission (HCC) ([facility]) Major depressive disorder, recurrent episode, in partial or unspecified remission Neck pain- Primary Cervicalgia Primary hypertension ([facility]) Unspecified essential hypertension Chronic kidney disease, stage 4 (severe) ([facility]) EDITH (generalized anxiety disorder) ([facility]) Generalized anxiety disorder Functional gait abnormality MCI (mild cognitive impairment) Mild cognitive impairment, so stated documented in this encounter [facility]* Diagnosis Traumatic complete tear of left rotator cuff, subsequent encounter- Primary Recurrent major depression in partial remission (HCC) ([facility]) Major depressive disorder, recurrent episode, in partial or unspecified remission Other hyperlipidemia EDITH (generalized anxiety disorder) ([facility]) Generalized anxiety disorder CKD (chronic kidney disease) stage 4, GFR 15-29 ml/min ([facility]) Chronic kidney disease, Stage IV (severe) Gastroesophageal reflux disease without esophagitis Esophageal reflux 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 ([facility]) Primary hypertension ([facility]) Unspecified essential hypertension Chronic obstructive pulmonary disease, unspecified COPD type ([facility]) Chronic obstructive pulmonary disease, unspecified COPD type ([facility])- Primary 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 ([facility]) CKD (chronic kidney disease) stage 4, GFR 15-29 ml/min ([facility]) Chronic kidney disease, Stage IV (severe) Gastroesophageal reflux disease without esophagitis Esophageal reflux Recurrent major depressive disorder, in full remission ([facility]) Other hyperlipidemia EDITH (generalized anxiety disorder) ([facility]) Generalized anxiety disorder Recurrent major depression in partial remission (HCC) ([facility]) Major depressive disorder, recurrent episode, in partial or unspecified remission Primary hypertension ([facility] Unspecified essential hypertension Primary hypertension ([facility])- Primary Unspecified essential hypertension Other hyperlipidemia 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 ([facility]) Frequent falls Functional gait abnormality CKD (chronic kidney disease) stage 4, GFR 15-29 ml/min ([facility]) Chronic kidney disease, Stage IV (severe) Primary hypertension ([facility])- Primary Unspecified essential hypertension Chronic obstructive pulmonary disease, unspecified COPD type ([facility]) Chronic kidney disease, stage 4 (severe) ([facility]) 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 ([facility]) Gastroesophageal reflux disease without esophagitis Esophageal reflux EDITH (generalized anxiety disorder) ([facility]) Generalized anxiety disorder Recurrent major depressive disorder, in full remission ([facility]) Mixed hyperlipidemia ([facility]) Mixed hyperlipidemia MCI (mild cognitive impairment) Mild cognitive impairment, so stated Other hyperlipidemia Recurrent major depression in partial remission (HCC) ([facility]) Major depressive disorder, recurrent episode, in partial or unspecified remission Neck pain- Primary Cervicalgia Primary hypertension ([facility]) Unspecified essential hypertension Chronic kidney disease, stage 4 (severe) ([facility]) EDITH (generalized anxiety disorder) ([facility]) Generalized anxiety disorder Functional gait abnormality MCI (mild cognitive impairment) Mild cognitive impairment, so stated EDITH (generalized anxiety disorder) ([facility])- Primary Generalized anxiety disorder documented in this encounter [facility]* Diagnosis Traumatic complete tear of left rotator cuff, subsequent encounter- Primary Recurrent major depression in partial remission (HCC) ([facility]) Major depressive disorder, recurrent episode, in partial or unspecified remission Other hyperlipidemia EDITH (generalized anxiety disorder) ([facility]) Generalized anxiety disorder CKD (chronic kidney disease) stage 4, GFR 15-29 ml/min ([facility]) Chronic kidney disease, Stage IV (severe) Gastroesophageal reflux disease without esophagitis Esophageal reflux 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 ([facility]) Primary hypertension ([facility]) Unspecified essential hypertension Chronic obstructive pulmonary disease, unspecified COPD type ([facility]) Chronic obstructive pulmonary disease, unspecified COPD type ([facility])- Primary 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 ([facility]) CKD (chronic kidney disease) stage 4, GFR 15-29 ml/min ([facility]) Chronic kidney disease, Stage IV (severe) Gastroesophageal reflux disease without esophagitis Esophageal reflux Recurrent major depressive disorder, in full remission ([facility]) Other hyperlipidemia EDITH (generalized anxiety disorder) ([facility]) Generalized anxiety disorder Recurrent major depression in partial remission (HCC) ([facility]) Major depressive disorder, recurrent episode, in partial or unspecified remission Primary hypertension ([facility] Unspecified essential hypertension Primary hypertension ([facility])- Primary Unspecified essential hypertension Other hyperlipidemia 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 ([facility]) Frequent falls Functional gait abnormality CKD (chronic kidney disease) stage 4, GFR 15-29 ml/min ([facility]) Chronic kidney disease, Stage IV (severe) Primary hypertension ([facility])- Primary Unspecified essential hypertension Chronic obstructive pulmonary disease, unspecified COPD type ([facility]) Chronic kidney disease, stage 4 (severe) ([facility]) 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 ([facility]) Gastroesophageal reflux disease without esophagitis Esophageal reflux EDITH (generalized anxiety disorder) ([facility]) Generalized anxiety disorder Recurrent major depressive disorder, in full remission ([facility]) Mixed hyperlipidemia ([facility]) Mixed hyperlipidemia MCI (mild cognitive impairment) Mild cognitive impairment, so stated Other hyperlipidemia Recurrent major depression in partial remission (HCC) ([facility]) Major depressive disorder, recurrent episode, in partial or unspecified remission Neck pain- Primary Cervicalgia Primary hypertension ([facility]) Unspecified essential hypertension Chronic kidney disease, stage 4 (severe) ([facility]) EDITH (generalized anxiety disorder) ([facility]) Generalized anxiety disorder Functional gait abnormality MCI (mild cognitive impairment) Mild cognitive impairment, so stated Other hyperlipidemia 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 ([facility] Primary hypertension ([facility] Unspecified essential hypertension Recurrent major depression in partial remission (HCC) ([facility]) Major depressive disorder, recurrent episode, in partial or unspecified remission EDITH (generalized anxiety disorder) ([facility]) Generalized anxiety disorder documented in this encounter [facility]* Diagnosis Traumatic complete tear of left rotator cuff, subsequent encounter- Primary Recurrent major depression in partial remission (HCC) ([facility]) Major depressive disorder, recurrent episode, in partial or unspecified remission Other hyperlipidemia EDITH (generalized anxiety disorder) ([facility]) Generalized anxiety disorder CKD (chronic kidney disease) stage 4, GFR 15-29 ml/min ([facility]) Chronic kidney disease, Stage IV (severe) Gastroesophageal reflux disease without esophagitis Esophageal reflux 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 ([facility]) Primary hypertension ([facility]) Unspecified essential hypertension Chronic obstructive pulmonary disease, unspecified COPD type ([facility]) Chronic obstructive pulmonary disease, unspecified COPD type ([facility])- Primary 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 ([facility]) CKD (chronic kidney disease) stage 4, GFR 15-29 ml/min ([facility]) Chronic kidney disease, Stage IV (severe) Gastroesophageal reflux disease without esophagitis Esophageal reflux Recurrent major depressive disorder, in full remission ([facility]) Other hyperlipidemia EDITH (generalized anxiety disorder) ([facility]) Generalized anxiety disorder Recurrent major depression in partial remission (HCC) ([facility]) Major depressive disorder, recurrent episode, in partial or unspecified remission Primary hypertension ([facility]) Unspecified essential hypertension Primary hypertension ([facility])- Primary Unspecified essential hypertension Other hyperlipidemia 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 ([facility]) Frequent falls Functional gait abnormality CKD (chronic kidney disease) stage 4, GFR 15-29 ml/min ([facility]) Chronic kidney disease, Stage IV (severe) Primary hypertension ([facility])- Primary Unspecified essential hypertension Chronic obstructive pulmonary disease, unspecified COPD type ([facility]) Chronic kidney disease, stage 4 (severe) ([facility]) 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 ([facility]) Gastroesophageal reflux disease without esophagitis Esophageal reflux EDITH (generalized anxiety disorder) ([facility]) Generalized anxiety disorder Recurrent major depressive disorder, in full remission ([facility]) Mixed hyperlipidemia ([facility]) Mixed hyperlipidemia MCI (mild cognitive impairment) Mild cognitive impairment, so stated Other hyperlipidemia Recurrent major depression in partial remission (HCC) ([facility]) Major depressive disorder, recurrent episode, in partial or unspecified remission Neck pain- Primary Cervicalgia Primary hypertension ([facility]) Unspecified essential hypertension Chronic kidney disease, stage 4 (severe) ([facility]) EDITH (generalized anxiety disorder) ([facility]) Generalized anxiety disorder Functional gait abnormality MCI (mild cognitive impairment) Mild cognitive impairment, so stated Primary hypertension ([facility]) Unspecified essential hypertension Other hyperlipidemia Neck pain Cervicalgia Recurrent major depression in partial remission (HCC) ([facility]) Major depressive disorder, recurrent episode, in partial or unspecified remission 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 ([facility]) Gastroesophageal reflux disease without esophagitis Esophageal reflux Chronic obstructive pulmonary disease, unspecified COPD type ([facility]) EDITH (generalized anxiety disorder) ([facility]) Generalized anxiety disorder documented in this encounter [facility] HealthcareEvaluation note* Diagnosis Traumatic complete tear of left rotator cuff, subsequent encounter- Primary Recurrent major depression in partial remission (HCC) ([facility]) Major depressive disorder, recurrent episode, in partial or unspecified remission Other hyperlipidemia EDITH (generalized anxiety disorder) ([facility]) Generalized anxiety disorder CKD (chronic kidney disease) stage 4, GFR 15-29 ml/min ([facility]) Chronic kidney disease, Stage IV (severe) Gastroesophageal reflux disease without esophagitis Esophageal reflux 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 ([facility]) Primary hypertension ([facility]) Unspecified essential hypertension Chronic obstructive pulmonary disease, unspecified COPD type ([facility]) Chronic obstructive pulmonary disease, unspecified COPD type ([facility])- Primary 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 ([facility]) CKD (chronic kidney disease) stage 4, GFR 15-29 ml/min ([facility]) Chronic kidney disease, Stage IV (severe) Gastroesophageal reflux disease without esophagitis Esophageal reflux Recurrent major depressive disorder, in full remission ([facility]) Other hyperlipidemia EDITH (generalized anxiety disorder) ([facility]) Generalized anxiety disorder Recurrent major depression in partial remission (HCC) ([facility]) Major depressive disorder, recurrent episode, in partial or unspecified remission Primary hypertension ([facility]) Unspecified essential hypertension Primary hypertension ([facility])- Primary Unspecified essential hypertension Other hyperlipidemia 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 ([facility]) Frequent falls Functional gait abnormality CKD (chronic kidney disease) stage 4, GFR 15-29 ml/min ([facility]/HCC) Chronic kidney disease, Stage IV (severe) Primary hypertension ([facility])- Primary Unspecified essential hypertension Chronic obstructive pulmonary disease, unspecified COPD type ([facility]) Chronic kidney disease, stage 4 (severe) ([facility]) 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 ([facility]/HCC) Gastroesophageal reflux disease without esophagitis Esophageal reflux EDITH (generalized anxiety disorder) ([facility]) Generalized anxiety disorder Recurrent major depressive disorder, in full remission ([facility]) Mixed hyperlipidemia ([facility]) Mixed hyperlipidemia MCI (mild cognitive impairment) Mild cognitive impairment, so stated Other hyperlipidemia Recurrent major depression in partial remission (HCC) ([facility]) Major depressive disorder, recurrent episode, in partial or unspecified remission Neck pain- Primary Cervicalgia Primary hypertension ([facility]) Unspecified essential hypertension Chronic kidney disease, stage 4 (severe) ([facility]) EDITH (generalized anxiety disorder) ([facility]) Generalized anxiety disorder Functional gait abnormality MCI (mild cognitive impairment) Mild cognitive impairment, so stated Neck pain- Primary Cervicalgia documented in this encounter [facility] HealthcareEvaluation note* Diagnosis Traumatic complete tear of left rotator cuff, subsequent encounter- Primary Recurrent major depression in partial remission (HCC) ([facility]) Major depressive disorder, recurrent episode, in partial or unspecified remission Other hyperlipidemia EDITH (generalized anxiety disorder) ([facility]) Generalized anxiety disorder CKD (chronic kidney disease) stage 4, GFR 15-29 ml/min ([facility]) Chronic kidney disease, Stage IV (severe) Gastroesophageal reflux disease without esophagitis Esophageal reflux 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 ([facility]) Primary hypertension ([facility]) Unspecified essential hypertension Chronic obstructive pulmonary disease, unspecified COPD type ([facility]) Chronic obstructive pulmonary disease, unspecified COPD type ([facility])- Primary 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 ([facility]) CKD (chronic kidney disease) stage 4, GFR 15-29 ml/min ([facility]) Chronic kidney disease, Stage IV (severe) Gastroesophageal reflux disease without esophagitis Esophageal reflux Recurrent major depressive disorder, in full remission ([facility]) Other hyperlipidemia EDITH (generalized anxiety disorder) ([facility] Generalized anxiety disorder Recurrent major depression in partial remission (HCC) ([facility]) Major depressive disorder, recurrent episode, in partial or unspecified remission Primary hypertension ([facility]) Unspecified essential hypertension Primary hypertension ([facility])- Primary Unspecified essential hypertension Other hyperlipidemia 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 ([facility]) Frequent falls Functional gait abnormality CKD (chronic kidney disease) stage 4, GFR 15-29 ml/min ([facility]) Chronic kidney disease, Stage IV (severe) Primary hypertension ([facility])- Primary Unspecified essential hypertension Chronic obstructive pulmonary disease, unspecified COPD type ([facility]) Chronic kidney disease, stage 4 (severe) ([facility]) 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 ([facility]) Gastroesophageal reflux disease without esophagitis Esophageal reflux EDITH (generalized anxiety disorder) ([facility]) Generalized anxiety disorder Recurrent major depressive disorder, in full remission ([facility]) Mixed hyperlipidemia ([facility]) Mixed hyperlipidemia MCI (mild cognitive impairment) Mild cognitive impairment, so stated Other hyperlipidemia Recurrent major depression in partial remission ([facility]) ([facility]) Major depressive disorder, recurrent episode, in partial or unspecified remission Neck pain- Primary Cervicalgia Primary hypertension ([facility]) Unspecified essential hypertension Chronic kidney disease, stage 4 (severe) ([facility]) EDITH (generalized anxiety disorder) ([facility]) Generalized anxiety disorder Functional gait abnormality MCI (mild cognitive impairment) Mild cognitive impairment, so stated Cervical spondylosis- Primary Cervical spondylosis without myelopathy Neck pain Cervicalgia Primary hypertension ([facility]) Unspecified essential hypertension Chronic kidney disease, stage 4 (severe) ([facility]) EDITH (generalized anxiety disorder) ([facility]) Generalized anxiety disorder H/O: lung [...] kidney disease) stage 4, GFR 15-29 ml/min ([facility]) Chronic kidney disease, Stage IV (severe) Gastroesophageal reflux disease without esophagitis Esophageal reflux 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 Primary hypertension Unspecified essential hypertension Chronic obstructive pulmonary disease, unspecified COPD type ([facility]) Chronic obstructive pulmonary disease, unspecified COPD type (HCC)- Primary 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 CKD (chronic kidney disease) stage 4, GFR 15-29 ml/min (HCC) Chronic kidney disease, Stage IV (severe) Gastroesophageal reflux disease without esophagitis Esophageal reflux Recurrent major depressive disorder, in full remission Other hyperlipidemia EDITH (generalized anxiety disorder) Generalized anxiety disorder Recurrent major depression in partial remission Major depressive disorder, recurrent episode, in partial or unspecified remission Primary hypertension Unspecified essential hypertension Primary hypertension- Primary Unspecified essential hypertension Other hyperlipidemia 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 Frequent falls Functional gait abnormality CKD (chronic kidney disease) stage 4, GFR 15-29 ml/min (HCC) Chronic kidney disease, Stage IV (severe) Primary hypertension- Primary Unspecified essential hypertension Chronic obstructive pulmonary disease, unspecified COPD type (HCC) Chronic kidney disease, stage 4 (severe) (HCC) 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 Gastroesophageal reflux disease [...] hypertension Chronic kidney disease, stage 4 (severe) ([facility]) EDITH (generalized anxiety disorder) Generalized anxiety disorder H/O: lung cancer Personal history of malignant neoplasm of bronchus and lung MCI (mild cognitive impairment) Mild cognitive impairment, so stated Cervical spondylosis- Primary Cervical spondylosis without myelopathy Chronic diastolic heart failure (HCC) Chronic diastolic heart failure Primary hypertension Unspecified essential hypertension 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 Chronic kidney disease, [...] COPD type (HCC) documented in this encounter [facility]* Diagnosis Cervical spondylosis- Primary Cervical spondylosis without myelopathy documented in this encounter [facility] SystemEvaluation note* Diagnosis Dyspnea and respiratory abnormalities- Primary Other dyspnea and respiratory abnormality Centrilobular emphysema (HCC) Other emphysema Class 1 obesity due to excess calories with serious comorbidity and body mass index (BMI) of 32.0 to 32.9 in adult Sleep-disordered breathing Other sleep disturbances 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- Primary Hx of [...] impairment, so stated documented in this encounter [facility] note* Diagnosis Dyspnea and respiratory abnormalities- Primary Other dyspnea and respiratory abnormality Centrilobular emphysema (HCC) Other emphysema Class 1 obesity due to excess calories with serious comorbidity and body mass index (BMI) of 32.0 to 32.9 in adult Sleep-disordered breathing Other sleep disturbances Chronic heart failure with preserved ejection fraction (HCC)- Primary documented in this encounter [facility] general Narrative - Reported* Type Description Date Medical History hypertension Medical History hypercholesterolemia Medical History lung cancer Medical History heart disease Medical History A flutter Medical History Esophageal reflux Medical History DEPRESSION AND ANXIETY Surgical History CABG Surgical History hernia Surgical History lobectomy: lung Surgical History [facility]/Dr Joshi--hernia repair 2020 Hospitalization History see above [facility] Other History general Narrative - ReportedNoKE[employer] Other History general Narrative - ReportedNoKE2 [employer] Other InstructionsNot on filedocumented in this encounter [facility] [place] SystemReason for referral (narrative)* Reason * Waiting for appt pulmonology, lung nodule, progressive SOB, hx. lung cancer Diagnosis 1 Pulmonary nodule (R9 1.1) Referral Organization [facility] Family Corine Sparks Referring Provider First Name Cristo Referring Provider Last Name Gabriele Referring Provider Specialty Family Medi cine Referred Organization [facility] Referred Provider Gonsalo Hawley Referred Address [address] [place] [address],[address],[id number] Referred Provider Specialty Pulmonary Marium briseno Referral Priority Routine General Notes Mattie Carballo 01:40:04 PM >referral received and sent p2p successful per log [facility] Other Reason for referral (narrative)* Outpatient Procedure (Routine) - Pending Review Specialty Diagnoses / Procedures Referred By Contximena t Referred To Contact [facility] Diagnoses Shortness of breath Procedures SPIROMETRY WITH DILATOR IF OBSTRUCTED BRNCDILAT RSPSE SPMTRY PRE&POST-BRNCDILAT ADMN Marisol Davis MD [address] [place] [address] [facility] [place] [address] [place] [id number] Referral ID Status Reason Start Date Expiration Date Visits Requested Visits Authorized [id number] Pending Review Auto-Generat ed Referral 02/09/2022 03/10/2023 1 1 [facility] for visit NarrativeRef by Dr. Suazo for pulmonology, lung nodule, progressive SOB, hx. lung cancerNorth [facility] Other Summary Purpose Family History No Family [...] July 6:23pm Hospital Course Note MR#: [id number] [facility] Pt. 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) Depression, unspecified depression type Procedures MRI BRAIN WO IVCON MRI BRAIN BRAIN STEM W/[place] [address] [place] [id number] Mr Imaging Referral ID Status Reason Start Date Expiration Date Visits Requested Visits Authorized [id number] Authorized Auto-Generat ed Referral 12/22/2021 01/21/2023 1 1 Specialty Diagnoses / Procedures Referred By Heribertoac t Referred To Contact MR IMAGING Diagnoses Cognitive impairment, mild, so stated Procedures MRI 3D POST PROCESSING 3D RENDERING W/INTERP&POSTPROC DIFF WORK STATION Alonzo Cabrera MD, [address] [place] [address] Mr Imaging Referral ID Status Reason Start Date Expiration Date Visits Requested Visits Authorized [id number] Pending Review Auto-Generat ed Referral 02/08/2022 03/10/2023 1 1 Referral ID Status Reason Start Date Expiration Date V isits Requested Visits Authorized [id number] Closed Auto-Generate d Referral 12/22/2021 01/21/2023 1 1 Specialty Diagnoses / Procedures Referred By Contac t Referred To Contact Psychology Diagnoses Recurrent major depression in partial remission (HCC) Procedures CONSULT TO PSYCHOLOGY OFFICE/OUTPATIENT [facility] 60-74 MINUTES Ebony Kaufman DO [address] [place] [address] Referral ID Status Reason Start Date Expiration Date Visits Requested Visits Authorized [id number] Pending Review PCP Requested Referral 04/10/2022 04/10/2023 1 1 Specialty Diagnoses / Procedures Referred By Contac t Referred To Contact [facility] Diagnoses Abnormality of gait Procedures CONSULT TO PHYSICAL THERAPY PHYSICAL THERAPY EVALUATION HIGH COMPLEX 45 MINS Ebony Trent DO [address] [place] [id number] [facility] [place] [id number] Referral ID Status Reason Start Date Expiration Date Visits Requested Visits Authorized [id number] Pending Review Auto-Generat ed Referral 05/04/2024 05/04/2025 1 1 Specialty Diagnoses / Procedures Referred By Contac t Referred To Contact CT IMAGING Diagnoses Memory loss Procedures CT BRAIN WO IVCON CT HEAD/BRAIN W/O CONTRAST MATERIAL Ebony Trent, [address] [id number] [facility] [place] [address] Referral ID Status Reason Start Date Expiration Date Visits Requested Visits Authorized [id number] Authorized Auto-Generat ed Referral 05/04/2024 06/03/2025 1 [...] TST EA ADDL 30 MIN Ebony Trent, [address] [place] [address] Referral ID Status Reason Start Date Expiration Date Visits Requested Visits Authorized [id number] Ref Not Required PCP Requested Referral 05/04/2024 05/04/2025 1 3 Referral ID Status Reason Start Date Expiration Date V isits Requested Visits Authorized [id number] Closed Auto-Generate d Referral 05/04/2024 06/03/2025 1 1 Chief Complaint and Reason for Visit Chief Complaint g47.30 Chief Complaint RENAL 6 MONTH F/U Reason for Visit Anemia CAD (coronary artery disease) of artery bypass graft Chronic kidney disease, stage 3b Hyperkalemia Hyperlipemia [id number] Chief Complaint Admit Date RENAL 6 MONTH [...] section and content) DATE CREATED AUTHOR 04/05/2018 Jose Hugous [facility] DATE CREATED AUTHOR AUTHOR'S ORGANIZ ATION 01/06/2020 [facility] DATE CREATED AUTHOR AUTHOR'S ORGANIZ ATION 12/19/2022 [facility] DATE CREATED AUTHOR AUTHOR'S ORGANIZ ATION 04/22/2023 [facility] DATE CREATED AUTHOR AUTHOR'S ORGANIZ ATION 03/04/2024 [place] DATE CREATED AUTHOR AUTHOR'S ORGANIZ ATION 05/13/2024 [facility] DATE CREATED AUTHOR AUTHOR'S ORGANIZ ATION 03/03/2025 [facility] EP[facility] DATE CREATED AUTHOR AUTHOR'S ORGANIZ ATION 04/07/2025 [facility] DATE CREATED AUTHOR AUTHOR'S ORGANIZ ATION 04/07/2025 [facility] DATE CREATED AUTHOR AUTHOR'S ORGANIZ ATION 04/30/2025 [facility] DATE CREATED AUTHOR AUTHOR'S ORGANIZ ATION 05/01/2025 [facility] Comments (unrecognize d section and content) In the event this informatio n is protected by the Federal Confidentiality of Alcohol and Drug Abuse Patient Records regulations: The Federal rules restrict any use of the information to criminally investigate or prosecute any alcohol or drug abuse patient.[facility] the event this information is protected by the Federal Confidentiality of Alcohol and Drug Abuse Patient Records regulations: The Federal rules restrict any use of the information to criminally investigate or prosecute any alcohol or drug abuse patient.[facility] HospitalIn the event this information is protected by the Federal Confidentiality of Alcohol and Drug Abuse Patient Records regulations: The Federal rules restrict any use of the information to criminally investigate or prosecute any alcohol or drug abuse patient.[facility] the event this information is protected by the Federal Confidentiality of Alcohol and Drug Abuse Patient Records regulations: The Federal rules restrict any use of the information to criminally investigate or prosecute any alcohol or drug abuse patient.[facility] Hospital[facility] the event this information is protected by the Federal Confidentiality of Alcohol and Drug Abuse Patient Records regulations: The Federal rules restrict any use of the information to criminally investigate or prosecute any alcohol or drug abuse patient.[facility] HospitalIn the event this information is protected by the Federal Confidentiality of Alcohol and Drug Abuse Patient Records regulations: The Federal rules restrict any use of the information to criminally investigate or prosecute any alcohol or drug abuse patient.[facility] [facility] HospitalIn the event this information is protected by the Federal Confidentiality of Alcohol and Drug Abuse Patient Records regulations: The Federal rules restrict any use of the information to criminally investigate or prosecute any alcohol or drug abuse patient.[facility] the event this information is protected by the Federal Confidentiality of Alcohol and Drug Abuse Patient Records regulations: The Federal rules restrict any use of the information to criminally investigate or prosecute any alcohol or drug abuse patient.[facility] the event this information is protected by the Federal Confidentiality of Alcohol and Drug Abuse Patient Records regulations: The Federal rules restrict any use of the information to criminally investigate or prosecute any alcohol or drug abuse patient.[facility] the event this information is protected by the Federal Confidentiality of Alcohol and Drug Abuse Patient Records regulations: The Federal rules restrict any use of the information to criminally investigate or prosecute any alcohol or drug abuse patient.[facility] Hospital[facility] the event this information is protected by the Federal Confidentiality of Alcohol and Drug Abuse Patient Records regulations: The Federal rules restrict any use of the information to criminally investigate or prosecute any alcohol or drug abuse patient.[facility] HospitalIn the event this information is protected by the Federal Confidentiality of Alcohol and Drug Abuse Patient Records regulations: The Federal rules restrict any use of the information to criminally investigate or prosecute any alcohol or drug abuse patient.[facility] Hospital[facility] the event this information is protected by the Federal Confidentiality of Alcohol and Drug Abuse Patient Records regulations: The Federal rules restrict any use of the information to criminally investigate or prosecute any alcohol or drug abuse patient.[facility] HospitalIn the event this information is protected by the Federal Confidentiality of Alcohol and Drug Abuse Patient Records regulations: The Federal rules restrict any use of the information to criminally investigate or prosecute any alcohol or drug abuse patient.[facility]In the event this information is protected by the Federal Confidentiality of Alcohol and Drug Abuse Patient Records regulations: The Federal rules restrict any use of the information to criminally investigate or prosecute any alcohol or drug abuse patient.[facility] HospitalIn the event this information is protected by the Federal Confidentiality of Alcohol and Drug Abuse Patient Records regulations: The Federal rules restrict any use of the information to criminally investigate or prosecute any alcohol or drug abuse patient.[facility] Reason for Visit (unrecogniz ed section and content) Reason Comments New Patient Memory loss Specialty Diagnoses / Procedures Referred By Lam t Referred To Contact MR IMAGING Diagnoses Cognitive impairment, mild, so stated 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) Depression, unspecified depression type Procedures MRI BRAIN WO IVCON MRI BRAIN BRAIN STEM W/[place] [address] [place] [address] Mr Imaging Referral ID Status Reason Start Date Expiration Date V isits Requested Visits Authorized [id number] Closed Auto-Generate d Referral 12/22/2021 01/21/2023 1 1 Reason Comments Spirometry Specialty Diagnoses / Procedures Referred By Lam t Referred To Contact [facility] Diagnoses Shortness of breath Procedures SPIROMETRY WITH DILATOR IF OBSTRUCTED BRNCDILAT RSPSE SPMTRY PRE&POST-BRNCDILAT Marisol Olivares MD [address] [place] [address] [facility] [place] [address] [place] [address] Referral ID Status Reason Start Date Expiration Date V isits Requested Visits Authorized [id number] Closed Auto-Generate d Referral 02/09/2022 03/10/2023 1 1 Reason Comments New Patient 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) 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 Reason Comments Established Patient Reason Comments Follow-up MEDS/SHOULDER Reason Comments Established Patient Follow Up Specialty Diagnoses / Procedures Referred By Lam t Referred To Contact Neurology / NEUROLOGY Diagnoses Follow-up exam Follow up Procedures OFFICE/OUTPATIENT ESTABLISHED HIGH MDM 40 MIN EST NI PATIENT Self Ebony Trent DO [address] [place] [address] Referral ID Status Reason Start Date Expiration Date Visits Requested Visits Authorized [id number] Authorized Financial Clearance Not Required Patient Cleared - INN Insurance Found 05/01/2024 08/11/2024 [id number] [phone] Specialty Diagnoses / Procedures Referred By Lam t Referred To Contact CT IMAGING Diagnoses Memory loss Procedures CT BRAIN WO IVCON CT HEAD/BRAIN W/O CONTRAST MATERIAL Ebony Trent DO [address] [place] [address] Ct [facility] [place] [address] Referral ID Status Reason Start Date Expiration Date V isits Requested Visits Authorized [id number] Closed Auto-Generate d Referral 05/04/2024 06/03/2025 1 [...] 2+ TST EA ADDL 30 MIN Ebony Trent DO [address] [place] [address] Referral ID Status Reason Start Date Expiration Date Visits Requested Visits Authorized [id number] Authorized PCP Requested Referral 05/04/2024 05/04/2025 1 3 Reason Comments Hypertension Reason Comments Follow-up Reason Comments Neck Pain Reason Comments Hypertension Reason Comments New Patient CAD Reason Onset Date Comments Results 04/02/2025 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 Teams (unrecognized sec tion and content) Relay Shop Tester Relationship Specialty Start Date End Date [facility], Thomas [address] [place] [address] NI Referring Team Psychiatry 12/21/21 Relay Shop Tester Relationship Specialty Start Date End Date [facility] [address] [place] [address] NI Referring Team Psychiatry 12/21/21 Relay Shop Tester Relationship Specialty Start Date End Date [facility] [address] [place] [address] NI Referring Team Psychiatry 12/21/21 Relay Shop Tester Relationship Specialty Start Date End Date [facility] [address] [place] [address] NI Referring Team Psychiatry 12/21/21 Relay Shop Tester Relationship Specialty Start Date End Date [facility] [address] [place] [address] NI Referring Team Psychiatry 12/21/21 Relay Shop Tester Relationship Specialty Start Date End Date [facility] [address] [place] [address] NI Referring Team Psychiatry 12/21/21 Relay Shop Tester Relationship Specialty Start Date End Date [facility] [address] [place] [address] NI Referring Team Psychiatry 12/21/21 Team Status: Inactive Member Role Status Dates Corona Monroe MD Attending Provider Active Daria Cardoza DO Primary Care Provider Active Team Status: Active Member Role Status Dates Daria Cardoza DO Primary Care Provider Active Relay Shop Tester Relationship Specialty Start Date End Date Thomas Hurtado [address] [place] [address] NI Referring Team Psychiatry 12/21/21 Relay Shop Tester Relationship Specialty Start Date End Date [...] March 31, 2024 End: March 31, 2024 Relay Shop Tester Relationship Specialty Start Date End Date Thomas Hurtado MD [address] [place] [address] NI Referring Team Psychiatry 12/21/21 Relay Shop Tester Relationship Specialty Start Date End Date Thomas Hurtado MD [address] [place] [address] NI Referring Team Psychiatry 12/21/21 Relay Shop Tester Relationship Specialty Start Date End Date Shaikh Grimes MD [address] [place] [address] PCP - [employer] 10/11/23 Jose Beckford MD [address] [place] [address] PCP - General Family Medicine 06/09/24 Jayy Coronado NP [address] [place] [address] Nurse Practitioner Family Medicine 06/09/24 Relay Shop Tester Relationship Specialty Start Date End Date Shaikh Grimes MD [address] [place] [address] PCP - [employer] 10/11/23 Jose Beckford MD [address] [place] [address] PCP - General Family Medicine 06/09/24 Jayy Coronado NP [address] [place] [address] Nurse Practitioner Family Medicine 06/09/24 Relay Shop Tester Relationship Specialty Start Date End Date Shaikh Grimes MD [address] [place] [address] PCP - [employer] 10/11/23 Jose Beckford MD [address] [place] [address] PCP - General Family Medicine 06/09/24 Jayy Coronado NP [address] [place] [address] Nurse Practitioner Family Medicine 06/09/24 Vannessa Russell MA Family Medicine 06/17/24 06/18/24 Relay Shop Tester Relationship Specialty Start Date End Date Shaikh Grimes MD [address] [place] [address] PCP - [employer] 10/11/23 Jose Beckford MD [address] [place] [address] PCP - General Family Medicine 06/09/24 Jayy Coronado NP [address] [place] [address] Nurse Practitioner Family Medicine 06/09/24 Relay Shop Tester Relationship Specialty Start Date End Date Shaikh Grimes MD [address] [place] [address] PCP - [employer] 10/11/23 Jose Beckford MD [address] [place] [address] PCP - General Family Medicine 06/09/24 Jayy Coronado NP [address] [place] [address] Nurse Practitioner Family Medicine 06/09/24 Relay Shop Tester Relationship Specialty Start Date End Date Shaikh Grimes MD [address] [place] [address] PCP - General Internal Medicine 08/12/22 Shaikh Grimes MD [address] [place] [address] PCP - [employer] 10/11/23 Relay Shop Tester Relationship Specialty Start Date End Date Thomas Hurtado MD [address] [place] [address] NI Referring Team Psychiatry 12/21/21 Relay Shop Tester Relationship Specialty Start Date End Date Jose Beckford MD [address] [place] [address] PCP - General Family Medicine 06/09/24 Jayy Coronado NP [address] [place] [address] Nurse Practitioner Family Medicine 06/09/24 Relay Shop Tester Relationship Specialty Start Date End Date Jose Beckford MD [address] [place] [phone] PCP - General Family Medicine 06/09/24 Jayy Coronado NP [address] [place] [address] Nurse Practitioner Family Medicine 06/09/24 Relay Shop Tester Relationship Specialty Start Date End Date Thomas Hurtado MD [address] [place] [address] NI Referring Team Psychiatry 12/21/21 Team Status: Inactive Member Role Status Dates NON STAFF Primary Care Provider Active Start: October 27, 2024 End: October 27, 2024 Lisseth Toscano MD Attending Provider Active Star t: October 27, 2024 End: October 27, 2024 Relay Shop Tester Relationship Specialty Start Date End Date Jose Beckford MD [address] [place] [address] PCP - General Family Medicine 06/09/24 Jayy Coronado NP [address] [place] [address] Nurse Practitioner Family Medicine 06/09/24 Relay Shop Tester Relationship Specialty Start Date End Date Jose Beckford MD [address] [place] [address] PCP - General Family Medicine 06/09/24 Jayy Coronado NP [address] [place] [address] Nurse Practitioner Family Medicine 06/09/24 Relay Shop Tester Relationship Specialty Start Date End Date Jose Beckford MD [address] [place] [address] PCP - General Family Medicine 06/09/24 Jayy Coronado NP [address] [place] [address] Nurse Practitioner Family Medicine 06/09/24 Relay Shop Tester Relationship Specialty Start Date End Date Jose Beckford MD [address] [place] [address] PCP - General Family Medicine 06/09/24 Jayy Coronado NP [address] [place] [address] Nurse Practitioner Family Medicine 06/09/24 Relay Shop Tester Relationship Specialty Start Date End Date Jose Beckford MD [address] [place] [address] PCP - General Family Medicine 06/09/24 Jayy Coronado NP [address] [place] [address] Nurse Practitioner Family Medicine 06/09/24 Relay Shop Tester Relationship Specialty Start Date End Date Jose Beckford MD [address] [place] [address] PCP - General Family Medicine 06/09/24 Jayy Coronado NP [address] [place] [address] Nurse Practitioner Family Medicine 06/09/24 Relay Shop Tester Relationship Specialty Start Date End Date Jose Beckford MD [address] [place] [address] PCP - General Family Medicine 06/09/24 Jayy Coronado NP [address] [place] [address] Nurse Practitioner Family Medicine 06/09/24 Relay Shop Tester Relationship Specialty Start Date End Date Jose Beckford MD [address] [place] [address] PCP - General Family Medicine 06/09/24 Jayy Coronado NP [address] [place] [address] Nurse Practitioner Family Medicine 06/09/24 Relay Shop Tester Relationship Specialty Start Date End Date Jose Beckford MD [address] [place] [address] PCP - General Family Medicine 06/09/24 Jayy Coronado NP [address] [place] [address] Nurse Practitioner Family Medicine 06/09/24 Relay Shop Tester Relationship Specialty Start Date End Date Jose Beckford MD [address] [place] [address] PCP - General Family Medicine 06/09/24 Jayy Coronado NP [address] [place] [address] Nurse Practitioner Family Medicine 06/09/24 Relay Shop Tester Relationship Specialty Start Date End Date Jose Beckford MD [address] [place] [address] PCP - General Family Medicine 06/09/24 Jayy Coronado NP [address] [place] [address] Nurse Practitioner Family Medicine 06/09/24 Team Status: Inactive Member Role Status Dates NON STAFF Primary Care Provider Active Start: January 19, 2025 End: January 19, 2025 Lisseth Toscano MD Attending Provider Active Star t: January 19, 2025 End: January 19, 2025 Relay Shop Tester Relationship Specialty Start Date End Date Susan Watson, SALES REPRESENTATIVE HE[employer] INSURANCE-VP PUBLISHER DEVELOPMENT [address] [place] [address] PCP - General Nurse Practitioner 01/11/25 Relay Shop Tester Relationship Specialty Start Date End Date Jose Beckford MD [address] [place] [address] PCP - General Family Medicine 06/09/24 Jayy Coronado NP [address] [place] [address] Nurse Practitioner Family Medicine 06/09/24 Relay Shop Tester Relationship Specialty Start Date End Date Jose Beckford MD [address] [place] [address] PCP - General Family Medicine 06/09/24 Jayy Coronado NP [address] [place] [address] Nurse Practitioner Family Medicine 06/09/24 Relay Shop Tester Relationship Specialty Start Date End Date Jose Beckford MD [address] [place] [address] PCP - General Family Medicine 06/09/24 Jayy Coronado NP [address] [place] [address] Nurse Practitioner Family Medicine 06/09/24 Relay Shop Tester Relationship Specialty Start Date End Date Susan Watson, SALES REPRESENTATIVE HEALTH INSURANCE-VP PUBLISHER DEVELOPMENT PCP - General Nurse Practitioner 01/11/25 Relay Shop Tester Relationship Specialty Start Date End Date Jose Beckford MD [address] [place] [address] PCP - General Family Medicine 06/09/24 Jayy Coronado NP [address] [place] [address] Nurse Practitioner Family Medicine 06/09/24 Relay Shop Tester Relationship Specialty Start Date End Date Aichholz, Susan Julieth, VP PUBLISHER DEVELOPMENT [address] [place] [address] PCP - General Family Medicine 04/01/25 Thomas Hurtado MD [address] [place] [address] NI Referring Team Psychiatry 12/21/21 Relay Shop Tester Relationship Specialty Start Date End Date Rigobertorandolphmichael Susanman Clancy CNP [address] [place] [address] PCP - General Family Medicine 04/01/25 Thomas Hurtado MD [address] [place] [address] NI Referring Team Psychiatry 12/21/21 Relay Shop Tester Relationship Specialty Start Date End Date RigobertorandolphSusan [place] CNP [address] [place] [address] PCP - General Family Medicine 04/01/25 Thomas Hurtado MD [address] [address] NI Referring Team Psychiatry 12/21/21 Goals (unrecognized [...] BE BASED ON THE PRIMARY CLINICAL RECORDS. [facility] [facility]. provides no warranty or guarantee of the accuracy or completeness of information in this document.
[2025-05-04 15:41] LABS: Hematocrit 33.7 % (42.0-54.0); Hemoglobin 11.0 g/dL (14.0-18.0); Immature Granulocytes Abs Auto 0.02 10^3/uL (0.00-0.03); Immature Granulocytes Pct Auto 0.3 % (0.0-0.5); Lymphocytes Absolute Auto 1.0 10^3/uL (1.2-3.8); Mean Corpuscular HGB Conc 32.6 g/dL (29.9-35.2); Mean Corpuscular Hemoglobin 31.1 pg (25.9-34.0); Mean Corpuscular Volume 95.2 fL (80.0-94.0); Platelet Count 132 10^3/uL (150-450); Red Blood Count 3.54 10^6/uL (4.70-6.10); White Blood Count 6.0 10^3/uL (4.0-11.0)
[2025-05-04 15:47] LABS: Anion Gap 11.5; Blood Urea Nitrogen 41.0 mg/dL (7.0-18.0); Calcium 9.0 mg/dL (8.5-10.1); Carbon Dioxide 23.5 mmol/L (21.0-32.0); Chloride 106 mmol/L (98-107); Estimated GFR (African America 33 (>=60 mL/min/1.73m^2); Estimated GFR (Non-African Ame 27 (>=60 mL/min/1.73m^2); Glucose 81 mg/dL (74-106); Potassium 5.0 mmol/L (3.5-5.1); Sodium 136 mmol/L (136-145)
[2025-05-04 15:49] LABS: INR 1.08; Partial Thromboplastin Time 26.7 sec (22.3-36.2); Prothrombin Time 11.4 sec (9.0-11.6)
== END 2025-05-04 15:09 | disposition home or self-care (01) ==
LOC: LAB 15:10
PROVIDERS: PCP Nurse Practitioner
DX: Z01.818 Encounter for other preprocedural examination (principal); I73.9 Peripheral vascular disease, unspecified; M79.604 Pain in right leg; M79.605 Pain in left leg
CPT/HCPCS: 36415; 80048; 85025; 85610; 85730; 87081

== ENCOUNTER 2025-07-12 12:52 | Outpatient (OUT) | payer MEDICARE, SELFPAY ==
--- OUTSIDE RECORDS SUMMARY | 2025-06-28 17:59 | XMS_ITS | Encounter Summary ---
Author Organization [facility] [place] [address] Care Team Providers Care Movement Education Specialist Name Role Phone Susan Watson MD Primary Care Provider [phone] Reason for Visit * ReasonCommentsRectal BleedingSTATES HE STARTED TO PASS BRIGHT RED BLOOD AND THE CLOTS WERE DARKER. * Auth/Cert (Routine)SpecialtyDiagnoses / ProceduresReferred By ContactReferred To Contact Diagnoses Rectal bleeding Procedures NO CODED SERVICE German Cabral MD [address] [place] [address] Phone: tel: fax: [facility] Emergency [address] [place] [address] Phone: tel: fax: Referral IDStatusReasonStart DateExpiration DateVisits RequestedVisits [id number] Encounter Details DateTypeDepartmentCare Team (Latest Contact Info)Ejkqimxxudy54/17/2025 5:59 PM EST - 07/01/2025 6:53 PM ESTHospital Encounter [facility] HVCU [address] [place] [address] Cleopatra Curiel MD [place] [address] German Cabral MD [address] [place] [address] French Newsome MD [address] [place] [address] Lower GI bleed (Primary Dx); Diverticular hemorrhage; Metabolic acidosis Discharge Disposition: Home or Self Care () Social History Tobacco UseTypesPacks/DayYears UsedDateSmoking Tobacco: FormerCigarettes Smokeless Tobacco: CurrentChewAlcohol UseStandard Drinks/WeekCommentsNot Currently0 (1 standard drink = 0.6 oz pure alcohol)PHQ-2AnswerDate Recorded Patient Health Questionnaire-2 Ackqn93208/14/2024Humiliation, Afraid, Rape, and Kick questionnaireAnswerDate RecordedWithin the [...] times a week06/15/2025How often do you attend jainism or orthodox services?Never06/15/2025Do you belong to any clubs or organizations such as jainism groups, unions, fraternal or athletic groups, or school groups?No06/15/2025How often do you attend meetings of the clubs or organizations you belong to?Never06/15/2025re you , , , , never , or living with a partner?Ffqotgjpv25/04/2025UDIT-C AnswerDate RecordedQ1: How often do you have [...] medical care, and heating?Not hard at all06/29/2025 [place] [facility] [employer] - Occupational Stress Questionnaire AnswerDate RecordedDo you feel stress - tense, restless, nervous, or anxious, or unable to sleep at night because yourmind is troubled all the time - these days? Only a odbpbm9006/15/2025HC UtilitiesAnswerDate RecordedIn the past 12 months has the [employer], gas, oil, or water Cuciniale threatened to shut off services in your [...] were you homeless or living in a correction (including now)?No06/29/2025Hunger Vital SignAnswerDate Recorded Within the past 12 months, you worried that your food would run out before you got the money to buymore.Never true06/29/2025Within the past 12 months, the food you bought just didn't last and you didn't have money to get more.Never true 06/29/2025Sex and Gender InformationValueDate RecordedSex Assigned at BirthMale 04/08/2025 7:15 AM EDTLegal HkvSokb3002/07/2022 10:15 PM EDTGender IdentityMale 04/08/2025 7:15 AM EDTSexual OrientationHeterosexual or Tycdldwg31/28/2025 7:15 AM EDTdocumented as of this encounter Last Filed Vital Signs Vital SignReadingTime TakenCommentsBlood Ufmtclcb399/5707/01/2025 4:16 PM EST Nakos132707/01/2025 4:16 PM KCPTljmzwkixgg37.9 ??C (96.6 ??F)07/01/2025 4:16 PM ESTRespiratory Cqtc704008/31/2024 4:16 PM ESTOxygen Gehtdidsve85%07/01/2025 4:16 PM ESTInhaled Oxygen Concentration--Sovmir74.3 kg (152 lb 12.8 oz)07/01/2025 5:59 AM NMRJklehj992.3 cm (5' 9 )06/30/2025 1:22 PM ESTBody [...] be sent through Care Everywhere. * Diverticulosis (German) * Heart Failure Diagnosis Yfgf-gq-Xiby (German) documented in this encounter Medications at Time of Discharge MedicationSigDispense QuantityRefillsLast FilledStart DateEnd Date acetaminophen (Tylenol Extra Strength) 500 mg tablet Indications:Lower extremity pain, bilateralTake 2 tablets (1,000 mg) by mouth every 6 (six) hours if needed for moderate pain (4-7 pain score). 30 tablet albuterol 90 mcg/actuation inhaler INHALE 1 PUFF BY MOUTH EVERY 4 HOURS KMNUDR0112/02/2021 aspirin 81 mg EC tablet Take 1 [...] mouth in the morning and at bedtime. drgmklvsnpp-ljsoranlz-fjzltxkw (Trelegy Ellipta) 100-62.5-25 mcg blister with device [...] from the original note were not included. 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 [facility] Medicine Daily Progress Note - 06/30/2025 2:11 PM; Room: [address] [place] [address] Admission: 06/28/2025 5:59 PM; Length of stay: 0 days THE HOSPITALIST TEAM PREFERS TO USE [employer] CHAT FOR NON-URGENT COMMUNICATION 7AM- 7PM. IF I DO NOT RESPOND WITHIN 20 MINUTES OR URGENT MATTERS, PLEASE CALL THROUGH THE CHEMICAL RESEARCH TECHNICIAN. FROM 7PM-7AM, PLEASE PAGE [phone](COVR). 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 Celiac artery: Patent. Atherosclerotic disease causing wahz-vd-yqufavnv ostial stenosis. Superior mesenteric artery: Patent. Atherosclerotic [...] Grant. Discharge Planning Signed French Newsome MD [facility] 06/30/2025 2:11 PM documented in this encounter [...] of hematochezia. Source Note - Maria Eugenia oDdd MD - 06/29/2025 7:10 AM EST Initial Gastroenterology/Hepatology Consultation Note IDENTIFYING DATA PATIENT: You Garcia ADMIT DATE: 06/28/2025 TIME OF EVALUATION: 06/29/2025 7:10 AM Reason for Consult: GI bleed GI bleed Admitting Physician: French Neswome MD HISTORY OF PRESENT ILLNESS You Garcia [...] the morning and at bedtime. Historical Provider, fvaefdnttac-elmbmkmag-dhtpnqim (Trelegy Ellipta) 100-62.5-25 mcg blister with device [...] 7.1 B12/Folate/Iron studies: No results found for: JIIBRCZG90 , FOLATE , IRON , TIBC , UIBC , IRONSAT , FERRITIN Viral Hepatitis No results found for: HEPAIGM , HAV , HEPBSAG , HEPBSAB , HEPBEAB , HEPBIGM , HEPBCAB , HEPBCOREAB , HBVNAT , HCVSCR , HEPCAB , HCVNAT , HCVPCR , HCVTMA Liver workup No results found for: MILENA , SMOOTHMUSCAB , CERULOPLSM , D2YPMQYVTNC , TTGA , IGA , TSH , [...] am to 4 pm weekdays in house: [phone] 4 pm to 6 am or weekends: Please contact the embossing unit operator to page the fellow closer on [1] Past Medical History: Diagnosis Date Anxiety [...] the morning and at bedtime. Historical Provider, wibwzphkqil-twtdmipex-wistogut (Trelegy Ellipta) 100-62.5-25 mcg blister with device [...] 7.1 B12/Folate/Iron studies: No results found for: GCCEEMQV03 , FOLATE , IRON , TIBC , UIBC , IRONSAT , FERRITIN Viral Hepatitis No results found for: HEPAIGM , HAV , HEPBSAG , HEPBSAB , HEPBEAB , HEPBIGM , HEPBCAB , HEPBCOREAB , HBVNAT , HCVSCR , HEPCAB , HCVNAT , HCVPCR , HCVTMA Liver workup No results found for: MILENA , SMOOTHMUSCAB , CERULOPLSM , G7WBNTJIUEA , TTGA , IGA , TSH , [...] am to 4 pm weekdays in house: [phone] 4 pm to 6 am or weekends: Please contact the embossing unit operator to page the fellow closer on [1] Past Medical History: Diagnosis Date Anxiety [...] AM THE HOSPITALIST TEAM PREFERS TO USE [employer] CHAT FOR NON-URGENT COMMUNICATION 7AM- 7PM. IF I DO NOT RESPOND WITHIN 20 MINUTES OR URGENT MATTERS, PLEASE CALL THROUGH THE CHEMICAL RESEARCH TECHNICIAN. FROM 7PM-7AM, PLEASE PAGE [phone](COVR). 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 Past Medical History Medical History[1] Past [...] No Physical Activity: Inactive (02/28/2025) Received from [facility] Exercise Vital Sign On average, how many days per week do you engage in moderate to strenuous exercise (like a brisk walk)?: 0 days On average, how many minutes do you engage in exercise at this level?: 0 min Stress: No Stress Concern Present (06/15/2025) [place] [employer] [facility] [employer] - Occupational Stress Questionnaire Feeling of Stress: Only a little Social Connections: Socially Isolated (06/15/2025) Social Connection and Isolation Panel Frequency of Communication with Friends and Family: More than three times a week Frequency of Social Gatherings with Friends and Family: More than three times a week Attends Hoahaoism Services: Never Active [...] Procedure Abnormality Status --------- ------ CBC auto differential[[id number]] Abnormal Final result Please view results for [...] disease. Celiac artery: Patent. Atherosclerotic disease causing xxva-zq-ivfuungd ostial stenosis. Superior mesenteric artery: Patent. Atherosclerotic [...] signed: Bryson Grant. Signed Obi Doyle MD [facility] 06/29/2025 12:36 AM [1] Past [...] from the original note were not included. [facility] Vascular Surgery CONSULT Inpatient consult to [...] No Physical Activity: Inactive (02/28/2025) Received from [facility] Exercise Vital Sign On average, how many days per week do you engage in moderate to strenuous exercise (like a brisk walk)?: 0 days On average, how many minutes do you engage in exercise at this level?: 0 min Stress: No Stress Concern Present (06/15/2025) [place] [employer] [facility] [employer] [facility] - Occupational Stress Questionnaire Feeling of Stress: Only a little Social Connections: Socially Isolated (06/15/2025) Social Connection and Isolation Panel Frequency of Communication with Friends and Family: More than three times a week Frequency of Social Gatherings with Friends and Family: More than three times a week Attends Hoahaoism Services: Never Active [...] disease. Celiac artery: Patent. Atherosclerotic disease causing kuim-yn-xplanwku ostial stenosis. Superior mesenteric artery: Patent. Atherosclerotic [...] morning and at bedtime., Disp: , Rfl: cmkzqdibedf-gvqkncpzk-gwszmsag (Trelegy Ellipta) 100-62.5-25 mcg blister with device, [...] the morning and at bedtime. Historical Provider, mmdithnimec-pceztjsiz-asjtitpk (Trelegy Ellipta) 100-62.5-25 mcg blister with device [...] 7.1 B12/Folate/Iron studies: No results found for: EWQUFHZH74 , FOLATE , IRON , TIBC , UIBC , IRONSAT , FERRITIN Viral Hepatitis No results found for: HEPAIGM , HAV , HEPBSAG , HEPBSAB , HEPBEAB , HEPBIGM , HEPBCAB , HEPBCOREAB , HBVNAT , HCVSCR , HEPCAB , HCVNAT , HCVPCR , HCVTMA Liver workup No results found for: MILENA , SMOOTHMUSCAB , CERULOPLSM , J9PHRHMQUHS , TTGA , IGA , TSH , [...] am to 4 pm weekdays in house: [phone] 4 pm to 6 am or weekends: Please contact the embossing unit operator to page the fellow closer on [1] Past Medical History: Diagnosis Date Anxiety [...] Curiel MD - 06/28/2025 6:37 PM EST [facility] [address] [facility] [address] EMERGENCY DEPARTMENT ENCOUNTER ED Room: 11/13 CHIEF [...] mouth in the morning and at bedtime. AECLZZKXBXP-CPIWXLBKQ-WMIIEODX (TRELEGY ELLIPTA) 100-62.5-25 MCG BLISTER WITH DEVICE [...] this chart in the absence of a group supervisor yard. Encounter Date: 05/11/25 Electrocardiogram, 12-lead Result Value Ventricular Rate 54 Atrial Rate 54 DC Interval 190 QRS DURATION 120 QT Interval 492 QTC CALCULATION(BAZETT) 466 P Houston 36 R-Houston -22 T Wave Houston 95 Impression Sinus bradycardia Intra-ventricular conduction delay [...] Procedure Abnormality Status --------- ------ CBC auto differential[[id number]] Please view results for these tests on [...] is performed under the ED CLIA certificate #[id number]. POCT GLUCOSE METER UNSOLICITED RESULTS - Abnormal Glucose POC 55 (*) Narrative: Waived Testing in the ED is performed under the ED CLIA certificate #[id number]. POCT GLUCOSE METER UNSOLICITED RESULTS - Abnormal Glucose POC 55 (*) Narrative: Waived Testing in the ED is performed under the ED CLIA certificate #[id number]. POCT GLUCOSE METER UNSOLICITED RESULTS - Abnormal Glucose POC 59 (*) Narrative: Waived Testing in the ED is performed under the ED CLIA certificate #[id number]. HEMOGLOBIN AND HEMATOCRIT, BLOOD - Abnormal Hemoglobin 11.3 (*) Hematocrit 35.8 (*) POCT GLUCOSE METER UNSOLICITED RESULTS - Abnormal Glucose POC 49 (*) Narrative: Waived Testing in the ED is performed under the ED CLIA certificate #[id number]. BASIC METABOLIC PANEL - Abnormal Sodium 136 [...] is performed under the ED CLIA certificate #[id number]. POCT GLUCOSE METER UNSOLICITED RESULTS - Normal Glucose POC 74 Narrative: Waived Testing in the ED is performed under the ED CLIA certificate #[id number]. CBC AND DIFFERENTIAL Narrative: The following orders were created for panel order CBC and differential. Procedure Abnormality Status --------- ------ CBC auto differential[[id number]] Abnormal Final result Please view results for these tests on the individual orders. TYPE AND SCREEN ABO Grouping B Rh Type POS Ab Scrn NEG CBC AND DIFFERENTIAL Narrative: The following orders were created for panel order CBC and differential. Procedure Abnormality Status --------- ------ CBC auto differential[[id number]] Abnormal Final result Please view results for [...] Procedure Summary Date: 07/01/25 Room / Location: [facility] Endoscopy Anesthesia Start: 1344 Anesthesia Stop: Procedure: DIAGNOSTIC COLONOSCOPY Diagnosis: Scheduled Providers: Melody Cortes MD; MATHIEU Rosales; Christie Horton MD Responsible Provider: Melody Cortes MD Anesthesia Type: MAC ASA Status: 3 Anesthesia Post [facility] O[facility] Flow [...] Procedure Summary Date: 06/30/25 Room / Location: [facility] [place] [facility] Anesthesia Start: 1408 Anesthesia Stop: 1426 [...] PM ESTAssociated Problem(s): 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 OP Specialty stopper setter received complex care referral via [employer]. 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 [address] [place] [facility] [place] [address] Sarah Tolliver MD [address] [facility] [place] [address] 07/29/2025 2:30 PM ESTFollow-Up [facility] [address] [place] [address] Ebony Estevez CNP [address] [place] [address] 08/23/2025 7:30 AM ESTHospital Encounter [facility] Main Operating Room [address] [place] [address] Chris Andre MD [address] [place] [address] 08/23/2025 7:30 AM EST - 08/23/2025 11:00 AM ESTSurgery [facility] Main Operating Room [address] [place] [address] Chris Andre MD [address] [place] [address] ENDARTERECTOMY, FEMORAL WITH POSSIBLE FEM TO POP WOBPNF0909/21/2025 11:00 AM EST Follow-Up [facility] Nephrology [address] [place] [address] Batsheva Beckwith MD [address] [facility] [address] [facility] [place] [address] (work) NamePriorityAssociated DiagnosesDate/TimeENDARTERECTOMY, FEMORAL Peripheral arterial occlusive disease Encounter for pre-operative examination 08/23/2025 7:30 AM ESTdocumented as of this encounter Goals GoalPatient Goal TypeAssociated ProblemsRecent ProgressPatient-Stated?Author Blood Pressure < 140/90 Blood Fepdhbpe681/78(07/06/2025 12:48 PM EST)Cy Child, RNdocumented as of this encounter Procedures Procedure NamePriorityDate/TimeAssociated DiagnosisCommentsBASIC METABOLIC PANEL STAT108/31/2024 4:17 PM EST DIAGNOSTIC JZMDNJYZWXLXmisopz58/20/2025 2:36 PM EST BLOOD GAS, VENOUSPending Zidqtnfgb44/20/2025 11:28 AM EST POCT GLUCOSE METER UNSOLICITED PGKQENBCvaasdl87/20/2025 9:23 AM EST HEMOGLOBIN AND HEMATOCRIT, BLOODPending Vnqlpeeww87/20/2025 6:51 AM EST EXTRA ESUBQVqmppfv43/20/2025 6:00 AM EST LIGHT GREEN HBAXrejtbg42/20/2025 6:00 AM EST BASIC METABOLIC PANELSTAT Add-on07/01/2025 6:00 AM EST POCT GLUCOSE METER UNSOLICITED NGTKGCFFoccisn39/19/2025 8:10 PM EST POCT GLUCOSE METER UNSOLICITED PJEIWULGsxngjo93/19/2025 4:08 PM EST POCT GLUCOSE METER UNSOLICITED AUUCOVNMcqbaer69/19/2025 3:46 PM EST POCT GLUCOSE METER UNSOLICITED MKUPMYTVcmwtmo29/19/2025 3:24 PM EST POCT GLUCOSE METER UNSOLICITED ZGBUZFDKlwvetu53/19/2025 3:01 PM EST DIAGNOSTIC AXFWKJMPPUFHjofnsk56/19/2025 2:25 PM EST POCT GLUCOSE METER UNSOLICITED JCZSZFEGkztzgz92/19/2025 1:23 PM EST JYIWJMNMVBTWCF42/18/2025 11:10 PM EST UOOLLXWTVURIZL24/18/2025 5:47 PM EST HEMOGLOBIN AND HEMATOCRIT, PALRDCJIJ81/18/2025 9:18 AM EST TRANSFUSE RED BLOOD CLETVQpcyeio81/18/2025 5:50 AM ESTCBC WITH AUTO DIFFERENTIAL STAT108/29/2024 5:45 AM EST CBC AND BHWUWYEPFKFZUhjfqsm09/18/2025 5:45 AM EST COMPREHENSIVE METABOLIC NHDRWRfzlqjl95/18/2025 5:45 AM EST TRANSFUSE RED BLOOD JSKAIPobsduk80/18/2025 3:00 AM ESTPREPARE RBCRoutine 06/29/2025 1:40 AM EST HEMOGLOBIN AND HEMATOCRIT, NQNNGSJLX82/18/2025 12:33 AM EST TYPE AND DUAREHZXLD43/18/2025 12:33 AM EST CTA ABDOMEN PELVIS W IV BUPDWFINLOWV35/17/2025 9:14 PM EST POCT OCCULT BLOOD PANEUBUOX45/17/2025 7:15 PM EST CBC WITH AUTO WZSJSXWJHHSNFTSB98/17/2025 6:39 PM EST CBC AND SMIWIQRAHSGEHLXK17/17/2025 6:39 PM EST COMPREHENSIVE METABOLIC TLZKMEEZF76/17/2025 6:39 PM EST documented in this encounter Results * (ABNORMAL) CBC (07/05/2025 1:47 PM EST)ComponentValueRef RangeTest Method Analysis TimePerformed AtPathologist SignatureAuto WBC4.414.00 - 10.60 10*3/uL 07/05/2025 2:05 PM [facility] ([facility])RBC3.46(L)4.20 - 5.70 10*6/uL 07/05/2025 2:05 PM [facility] ([facility])Jtpdmmwaez59.1(L)13.0 - 17.0 g/dL07/05/2025 2:05 PM [facility] ([facility])Nsyzipnnlw33.3(L)39.0 - 50.0 %07/05/2025 2:05 PM [facility] ([facility])MCV93.482.0 - 98.0 fL 07/05/2025 2:05 PM [facility] ([facility])MCH29.227.0 - 33.0 pg 07/05/2025 2:05 PM [facility] ([facility])MCHC31.3(L)32.0 - 35.0 g/dL 07/05/2025 2:05 PM [facility] ([facility])RDW15.1(H)11.5 - 15.0 % 07/05/2025 2:05 PM [facility] ([facility])Eifmzeyvz540(L)150 - 400 10*3/uL07/05/2025 2:05 PM [facility] ([facility])Specimen (Source) Anatomical Location / LateralityCollection Method / VolumeCollection Time Received TimeBloodVenous blood specimen / UnknownVenipuncture / Unknown 07/05/2025 1:47 PM EST07/05/2025 1:54 PM EST Narrative Authorizing ProviderResult TypeResult StatusSukumaru Sammy Newsome MDLAB BLOOD ORDERABLESFinal ResultPerforming OrganizationAddressCity/State/ZIP CodePhone Number [facility] ([facility] [address] [place] [address] * (ABNORMAL) Basic metabolic panel (07/05/2025 1:47 PM EST)ComponentValueRef RangeTest MethodAnalysis TimePerformed AtPathologist DlgvnjmdqAtpetj959659 - 145 mmol/L109/04/2024 2:18 PM [facility] ([facility])Potassium4.83.5 - 5.1 mmol/L109/04/2024 2:18 PM [facility] ([facility])Jisllual975(H)98 - 107 mmol/L109/04/2024 2:18 PM [facility] ([facility])SG15347 - 31 mmol/L 07/05/2025 2:18 PM [facility] ([facility])LVH856 - 25 mg/dL07/05/2025 2:18 PM [facility] ([facility])Creatinine1.45(H)0.70 - 1.30 mg/dL 07/05/2025 2:18 PM [facility] ([facility])Dgzvqds0216 - 100 mg/dL 07/05/2025 2:18 PM [facility] ([facility])Calcium8.68.6 - 10.3 mg/dL 07/05/2025 2:18 PM [facility] ([facility])Anion Gap97 - 20 mmol/L 07/05/2025 2:18 PM [facility] ([facility])eGFR51.2(L)>60.0 mL/min/1.73m* 2:18 PM [facility] ([facility])Comment:The [facility]???s estimated glomerular filtration rate (eGFR) will no [...] one group of individuals.BUN/Creatinine Ratio15. 2:18 PM [facility] ([facility])Specimen (Source)Anatomical Location / LateralityCollection Method / VolumeCollection TimeReceived TimeBloodVenous blood specimen / Unknown Venipuncture / Ydjcwsa5807/05/2025 1:47 PM EST07/05/2025 1:53 PM EST Narrative Authorizing ProviderResult TypeResult StatusSukumaru Sammy Newsome MDLAB BLOOD ORDERABLESFinal ResultPerforming OrganizationAddressCity/State/ZIP CodePhone Number [facility] ([facility]) [address] [place] [address] * (ABNORMAL) Basic metabolic panel (07/01/2025 4:17 PM EST)ComponentValueRef RangeTest MethodAnalysis TimePerformed AtPathologist MkrnzuxwuRmulcp161(L)136 - 145 mmol/L108/31/2024 4:48 PM [facility] [facility])Potassium4.63.5 - 5.1 mmol/L108/31/2024 4:48 PM [facility] ([facility])Tkpiuzhr746(H)98 - 107 mmol/L108/31/2024 4:48 PM [facility] ([facility])CO216(L)21 - 31 mmol/L108/31/2024 4:48 PM [facility] ([facility])XQN973 - 25 mg/dL 07/01/2025 4:48 PM [facility] ([facility])Creatinine1.62(H)0.70 - 1.30 mg/dL07/01/2025 4:48 PM [facility] ([facility])Hgikzqe20(L)70 - 100 mg/dL07/01/2025 4:48 PM [facility] ([facility])Calcium8.98.6 - 10.3 mg/dL07/01/2025 4:48 PM [facility] ([facility])Anion Pvf732 - 20 mmol/L 07/01/2025 4:48 PM [facility] ([facility])eGFR44.8(L)>60.0 mL/min/1.73m* 4:48 PM [facility] ([facility])Comment:[facility]???s estimated glomerular filtration rate (eGFR) will no [...] one group of individuals.BUN/Creatinine Ratio15. 4:48 PM [facility]Specimen (Source)Anatomical Location / LateralityCollection Method / VolumeCollection TimeReceived TimeBloodVenous blood specimen / Unknown Venipuncture / Wndiopv0807/01/2025 4:17 PM EST07/01/2025 4:26 PM EST Narrative Authorizing ProviderResult TypeResult StatusSukumaru Sammy Newsome MDLAB BLOOD ORDERABLESFinal ResultPerforming OrganizationAddressCity/State/ZIP CodePhone Number [facility] ([place]) [address] [place] [address] * Diagnostic Colonoscopy (07/01/2025 2:36 PM EST)Anatomical [...] on 07/01/25 Attending Physician: ??Christie Horton MD Turf Sales Person: ??Maria Eugenia Dodd MD Procedure Details Informed [...] AtPathologist SignaturepH, Ven7.28(L)7.31 - 7.41108/31/2024 11:42 AM [facility] RESPIRATORY THERAPYpCO2, Peg4914 - 50 mmHg 07/01/2025 11:42 AM [facility] RESPIRATORY THERAPYpO2, Ven26(L)35 - 45 mmHg 07/01/2025 11:42 AM [facility] RESPIRATORY THERAPYO2 Sat, Ven34.0(LL)65.0 - 75.0 %07/01/2025 11:42 AM [facility] RESPIRATORY THERAPYHCO3, Gbrspu11.2mmol/L 07/01/2025 11:42 AM [facility] RESPIRATORY THERAPYOxyhemoglobin, Arbmxv49.3% 07/01/2025 11:42 AM [facility] RESPIRATORY THERAPYpH Venous Temp Adjusted7.28(L) 7.31 - 7.41108/31/2024 11:42 AM [facility] RESPIRATORY THERAPYpCO2 Venous Temp Iockccmr7387 - 50 mmHg07/01/2025 11:42 AM [facility] RESPIRATORY THERAPYpO2 Venous Temp Dqimgpvf77(L)35 - 45 mmHg07/01/2025 11:42 AM [facility] RESPIRATORY FDAOSRTTkqpghekonm84.0??07/01/2025 11:42 AM [facility] RESPIRATORY THERAPY Specimen (Source)Anatomical Location / LateralityCollection Method / Volume Collection TimeReceived TimeBloodVenous blood specimen / UnknownVenipuncture / Rirklxb7007/01/2025 11:28 AM EST07/01/2025 11:38 AM EST Narrative Authorizing ProviderResult TypeResult StatusFrench CEE BLOOD ORDERABLESFinal ResultPerforming OrganizationAddressCity/State/ZIP CodePhone Number [facility] RESPIRATORY THERAPY [address] [place] [address], * POCT glucose meter (07/01/2025 9:23 AM EST)ComponentValueRef RangeTest Method Analysis TimePerformed AtPathologist SignatureGlucose PPK5887 - 105 mg/dL 07/01/2025 9:34 AM [facility] ([facility])Comment:jdlugolSpecimen (Source)Anatomical Location / LateralityCollection Method / VolumeCollection TimeReceived TimeBloodCapillary blood specimen / Grphxqn0907/01/2025 9:23 AM EST 07/01/2025 9:34 AM EST Narrative [facility] ([facility]) - 07/01/2025 9:34 AM EST Waived Testing in the ED is performed under the ED CLIA certificate #[id number]. Authorizing ProviderResult TypeResult StatusFrench CEE BLOOD ORDERABLESFinal ResultPerforming OrganizationAddressCity/State/ZIP CodePhone Number [facility] ([facility]) [address] [place] [address] * (ABNORMAL) Hemoglobin and hematocrit, blood (07/01/2025 6:51 AM EST)Component ValueRef RangeTest MethodAnalysis TimePerformed AtPathologist Signature Mrzudpmvlw42.3(L)13.0 - 17.0 g/dL07/01/2025 7:16 AM [facility] ([facility])Mcjjecttsh69.8(L)39.0 - 50.0 %07/01/2025 7:16 AM [facility] ([facility])Specimen (Source)Anatomical Location / LateralityCollection Method / VolumeCollection TimeReceived TimeBloodVenous blood specimen / Unknown Venipuncture / Ccpwjwk6807/01/2025 6:51 AM EST07/01/2025 6:56 AM EST Narrative Authorizing ProviderResult TypeResult StatusChris CEE BLOOD ORDERABLES Final ResultPerforming OrganizationAddressCity/State/ZIP CodePhone Number [facility] ([facility]) [address] [place] [address] * (ABNORMAL) Basic metabolic panel (07/01/2025 6:00 AM EST)ComponentValueRef RangeTest MethodAnalysis TimePerformed AtPathologist UnnescxypYmibuu583310 - 145 mmol/L108/31/2024 8:36 AM [facility] ([facility])Potassium4.63.5 - 5.1 mmol/L108/31/2024 8:36 AM [facility] ([facility])Ofwnryfj609(H)98 - 107 mmol/L108/31/2024 8:36 AM [facility] ([facility])CO216(L)21 - 31 mmol/L108/31/2024 8:36 AM [facility] ([facility])BUN26(H)7 - 25 mg/dL 07/01/2025 8:36 AM [facility] ([facility])Creatinine1.60(H)0.70 - 1.30 mg/dL07/01/2025 8:36 AM [facility] ([facility])Apezudm0777 - 100 mg/dL 07/01/2025 8:36 AM [facility] ([facility])Calcium9.38.6 - 10.3 mg/dL 07/01/2025 8:36 AM [facility] ([facility])Anion Ijm036 - 20 mmol/L 07/01/2025 8:36 AM [facility] ([facility])eGFR45.5(L)>60.0 mL/min/1.73m* 8:36 AM [facility] ([facility])Comment:[facility]???s estimated glomerular filtration rate (eGFR) will no [...] one group of individuals.BUN/Creatinine Ratio16. 8:36 AM [facility] ([facility])Specimen (Source)Anatomical Location / LateralityCollection Method / VolumeCollection TimeReceived TimeBloodVenous blood specimen / Unknown 07/01/2025 6:00 AM EST07/01/2025 6:57 AM EST Narrative Authorizing ProviderResult TypeResult StatusKyu Sammy Newsome MDLAB BLOOD ORDERABLESFinal ResultPerforming OrganizationAddressCity/State/ZIP CodePhone Number [facility] ([facility]) [address] [place] [address] * Light Green Top (07/01/2025 6:00 AM EST)ComponentValueRef RangeTest Method Analysis TimePerformed AtPathologist SignatureExtra TubeHold for add-ons. 07/01/2025 8:01 AM [facility] ([facility])Comment:Auto resulted.Specimen (Source)Anatomical Location / LateralityCollection Method / VolumeCollection TimeReceived TimeBloodVenous blood specimen / Vmdsfjj7607/01/2025 6:00 AM EST 07/01/2025 6:57 AM EST Narrative Authorizing ProviderResult TypeResult StatusFrench Newsome MDLAB BLOOD ORDERABLESFinal ResultPerforming OrganizationAddressCity/State/ZIP CodePhone Number [facility] ([facility]) [address] [place] [address] * (ABNORMAL) POCT glucose meter (06/30/2025 8:10 PM EST)ComponentValueRef Range Test MethodAnalysis TimePerformed AtPathologist SignatureGlucose POC49(LL)70 - 105 mg/dL07/01/2025 6:31 AM [facility] ([facility])Comment:twimyhk92 Specimen (Source)Anatomical Location / LateralityCollection Method / Volume Collection TimeReceived TimeBloodCapillary blood specimen / Mpliiaf1206/30/2025 8:10 PM EST07/01/2025 6:31 AM EST Narrative [facility] ([facility]) - 07/01/2025 6:31 AM EST Waived Testing in the ED is performed under the ED CLIA certificate #[id number]. Authorizing ProviderResult TypeResult StatusFrench Newsome [facility] BLOOD ORDERABLESFinal ResultPerforming OrganizationAddressCity/State/ZIP CodePhone Number [facility] [address] [place] [address] * POCT glucose meter (06/30/2025 4:08 PM EST)ComponentValueRef RangeTest Method Analysis TimePerformed AtPathologist SignatureGlucose BEW2885 - 105 mg/dL 06/30/2025 4:19 PM [facility] ([facility])Comment:ebeginSpecimen (Source)Anatomical Location / LateralityCollection Method / VolumeCollection TimeReceived TimeBloodCapillary blood specimen / Hscsgay5206/30/2025 4:08 PM EST 06/30/2025 4:19 PM EST Narrative [facility] ([facility]) - 06/30/2025 4:19 PM EST Waived Testing in the ED is performed under the ED CLIA certificate #[id number]. Authorizing ProviderResult TypeResult StatusFrench Newsome [facility] BLOOD ORDERABLESFinal ResultPerforming OrganizationAddressCity/State/ZIP CodePhone Number [facility] ([facility]) [address] [facility] [place] [address] * (ABNORMAL) POCT glucose meter (06/30/2025 3:46 PM EST)ComponentValueRef Range Test MethodAnalysis TimePerformed AtPathologist SignatureGlucose POC59(L)70 - 105 mg/dL06/30/2025 3:57 PM [facility] ([facility])Comment:ebegin Specimen (Source)Anatomical Location / LateralityCollection Method / Volume Collection TimeReceived TimeBloodCapillary blood specimen / Pbatrwd2006/30/2025 3:46 PM EST06/30/2025 3:57 PM EST Narrative [facility] ([facility]) - 06/30/2025 3:57 PM EST Waived Testing in the ED is performed under the ED CLIA certificate #[id number]. Authorizing ProviderResult TypeResult StatusFrench CEE BLOOD ORDERABLESFinal ResultPerforming OrganizationAddressCity/State/ZIP CodePhone Number [facility] ([facility]) [address] [place] [address] * (ABNORMAL) POCT glucose meter (06/30/2025 3:24 PM EST)ComponentValueRef Range Test MethodAnalysis TimePerformed AtPathologist SignatureGlucose POC55(L)70 - 105 mg/dL06/30/2025 3:34 PM [facility] ([facility])Comment:ebegin Specimen (Source)Anatomical Location / LateralityCollection Method / Volume Collection TimeReceived TimeBloodCapillary blood specimen / Uepzgnp4506/30/2025 3:24 PM EST06/30/2025 3:34 PM EST Narrative [facility] ([facility]) - 06/30/2025 3:34 PM EST Waived Testing in the ED is performed under the ED CLIA certificate #[id number]. Authorizing ProviderResult TypeResult StatusFrench CEE BLOOD ORDERABLESFinal ResultPerforming OrganizationAddressCity/State/ZIP CodePhone Number [facility] ([facility]) [address] [facility] [place] [address] * (ABNORMAL) POCT glucose meter (06/30/2025 3:01 PM EST)ComponentValueRef Range Test MethodAnalysis TimePerformed AtPathologist SignatureGlucose POC55(L)70 - 105 mg/dL06/30/2025 3:11 PM [facility] ([facility])Comment:[email or web address] Specimen (Source)Anatomical Location / LateralityCollection Method / Volume Collection TimeReceived TimeBloodCapillary blood specimen / Mbfeeiv0806/30/2025 3:01 PM EST06/30/2025 3:11 PM EST Narrative [facility] ([facility]) - 06/30/2025 3:11 PM EST Waived Testing in the ED is performed under the ED CLIA certificate #[id number]. Authorizing ProviderResult TypeResult StatusSukumaru Sammy Newsome MDLAB BLOOD ORDERABLESFinal ResultPerforming OrganizationAddressCity/State/ZIP CodePhone Number [facility] ([place]) [address] [place] [address] * Diagnostic Colonoscopy (06/30/2025 2:25 PM EST)Anatomical [...] on 06/30/25 Attending Physician: ??Kortney Gandhi MD Turf Sales Person: ??None Procedure Details Informed consent was obtained [...] SignatureGlucose POC53(L)70 - 105 mg/dL06/30/2025 1:34 PM [facility] ([facility])Comment:dspears Specimen (Source)Anatomical Location / LateralityCollection Method / Volume Collection TimeReceived TimeBloodCapillary blood specimen / Gnncedd3406/30/2025 1:23 PM EST06/30/2025 1:34 PM EST Narrative [facility] ([facility]) - 06/30/2025 1:34 PM EST Waived Testing in the ED is performed under the ED CLIA certificate #[id number]. Authorizing ProviderResult TypeResult Lilian Newsome MDLAB BLOOD ORDERABLESFinal ResultPerforming OrganizationAddressCity/State/ZIP CodePhone Number [facility] ([facility]) [address] [place] [address] * (ABNORMAL) Hemoglobin (06/29/2025 11:10 PM EST)ComponentValueRef RangeTest MethodAnalysis TimePerformed AtPathologist BwjnotlesFpzixfozsp56.5(L)13.0 - 17.0 g/dL06/30/2025 12:47 AM [facility] ([facility])Specimen (Source) Anatomical Location / LateralityCollection Method / VolumeCollection Time Received TimeBloodVenous blood specimen / UnknownVenipuncture / Unknown 06/29/2025 11:10 PM EST06/30/2025 12:13 AM EST Narrative Authorizing ProviderResult TypeResult StatusOmamartin CEE BLOOD ORDERABLES Final ResultPerforming OrganizationAddressCity/State/ZIP CodePhone Number [facility]) [address] [place] [address] * (ABNORMAL) Hemoglobin (06/29/2025 5:47 PM EST)ComponentValueRef RangeTest MethodAnalysis TimePerformed AtPathologist IkqunvfuyLtltozlexk34.4(L)13.0 - 17.0 g/dL06/29/2025 6:23 PM [facility] ([facility])Specimen (Source) Anatomical Location / LateralityCollection Method / VolumeCollection Time Received TimeBloodVenous blood specimen / UnknownVenipuncture / Unknown 06/29/2025 5:47 PM EST06/29/2025 6:17 PM EST Narrative Authorizing ProviderResult TypeResult StatusOmamartin CEE BLOOD ORDERABLES Final ResultPerforming OrganizationAddressCity/State/ZIP CodePhone Number [facility]) [address] [place] [address] * (ABNORMAL) Hemoglobin and hematocrit, blood (06/29/2025 9:18 AM EST)Component ValueRef RangeTest MethodAnalysis TimePerformed AtPathologist Signature Evaxufgerd14.9(L)13.0 - 17.0 g/dL06/29/2025 10:19 AM [facility] ([facility])Eubmimkzir75.8(L)39.0 - 50.0 %06/29/2025 10:[address] [facility])Specimen (Source)Anatomical Location / LateralityCollection Method / VolumeCollection TimeReceived TimeBloodVenous blood specimen / Unknown Venipuncture / Ieaubmi6706/29/2025 9:18 AM EST06/29/2025 9:54 AM EST Narrative Authorizing ProviderResult TypeResult StatusObi CEE BLOOD ORDERABLESFinal ResultPerforming OrganizationAddressCity/State/ZIP CodePhone Number [facility]) [address] [place] [address] * Transfuse RBC (06/29/2025 8:09 AM EST) Narrative Authorizing ProviderResult TypeResult StatusIdrees Vivek WOODARD TRANSFUSION ORDERABLESFinal Result * Transfuse RBC: 2 Units (06/29/2025 8:09 AM EST) Narrative Authorizing ProviderResult TypeResult StatusIdrees Vivek WOODARD TRANSFUSION ORDERABLESFinal Result * (ABNORMAL) CBC auto differential (06/29/2025 5:45 AM EST)ComponentValueRef RangeTest MethodAnalysis TimePerformed AtPathologist SignatureAuto WBC4.904.00 - 10.60 10*3/uL06/29/2025 6:07 AM [facility] ([facility])RBC3.01(L)4.20 - 5.70 10*6/uL06/29/2025 6:07 AM [facility] ([facility])Hemoglobin8.9 (L)13.0 - 17.0 g/dL06/29/2025 6:07 AM [facility] ([facility])Hematocrit 28.6(L)39.0 - 50.0 %06/29/2025 6:07 AM [facility] ([facility])MCV95.0 82.0 - 98.0 fL06/29/2025 6:07 AM [facility] ([facility])MCH29.627.0 - 33.0 pg06/29/2025 6:07 AM [facility] ([facility])MCHC31.1(L)32.0 - 35.0 g/dL06/29/2025 6:07 AM [facility] ([facility])RDW15.3(H)11.5 - 15.0 % 06/29/2025 6:07 AM [facility] ([facility])Neutrophils %75.1(H)40.0 - 72.0 %06/29/2025 6:07 AM [facility] ([facility])Lymphocytes %12.7(L)20.0 - 45.0 %06/29/2025 6:07 AM [facility] ([facility])Monocytes %7.35.0 - 12.0 %06/29/2025 6:07 AM [facility] ([facility])Eosinophils %3.30.0 - 6.0 %06/29/2025 6:07 AM [facility] ([facility])Basophils %0.80.0 - 1.0 % 06/29/2025 6:07 AM [facility] ([facility])Neutrophils Absolute3.681.60 - 7.60 10*3/uL06/29/2025 6:07 AM [facility] ([facility])Lymphocytes Absolute0.62(L)1.20 - 4.00 10*3/uL06/29/2025 6:07 AM [facility] ([facility])Monocytes Absolute0.360.10 - 1.00 10*3/uL06/29/2025 6:07 AM [facility] ([facility])Eosinophils Absolute0.160.00 - 0.50 10*3/uL06/29/2025 6:07 AM [facility] ([facility])Basophils Absolute0.040.00 - 0.20 10*3/uL 06/29/2025 6:07 AM [facility] ([facility])Zdzjuxmlb991(L)150 - 400 10*3/uL06/29/2025 6:07 AM [facility] ([facility])nRBC %0.00 %06/29/2025 6:07 AM [facility] ([facility])Immature Granulocytes %0.80.0 - 1.0 % 06/29/2025 6:07 AM [facility] ([facility])Immature Granulocytes Absolute 0.040.00 - 0.20 10*3/uL06/29/2025 6:07 AM [facility] ([facility]) Specimen (Source)Anatomical Location / LateralityCollection Method / Volume Collection TimeReceived TimeBloodVenous blood specimen / UnknownVenipuncture / Anhayqv6506/29/2025 5:45 AM EST06/29/2025 5:59 AM EST Narrative Authorizing ProviderResult TypeResult StatusIdrees Vivek CEE BLOOD ORDERABLESFinal ResultPerforming OrganizationAddressCity/State/ZIP CodePhone Number [facility] ([facility]) [address] [place] [address] * (ABNORMAL) Comprehensive metabolic panel (06/29/2025 5:45 AM EST)Component ValueRef RangeTest MethodAnalysis TimePerformed AtPathologist SignatureSodium 022673 - 145 mmol/L108/29/2024 6:30 AM [facility] ([facility])Potassium 5.13.5 - 5.1 mmol/L108/29/2024 6:30 AM [facility] ([facility])Pigvspgo889 (H)98 - 107 mmol/L108/29/2024 6:30 AM [facility] ([facility])YG39548 - 31 mmol/L108/29/2024 6:30 AM [facility] ([facility])Anion Off777 - 20 mmol/L108/29/2024 6:30 AM [facility] ([facility])PVK150 - 25 mg/dL 06/29/2025 6:30 AM [facility] ([facility])Creatinine1.63(H)0.70 - 1.30 mg/dL06/29/2025 6:30 AM [facility] ([facility])BUN/Creatinine Ratio14.1 06/29/2025 6:30 AM [facility] ([facility])Zkjmuhi5016 - 100 mg/dL 06/29/2025 6:30 AM [facility] ([facility])Calcium8.68.6 - 10.3 mg/dL 06/29/2025 6:30 AM [facility] ([facility])AST49(H)13 - 39 U/L108/29/2024 6:30 AM [facility] ([facility])ALT (SGPT)457 - 52 U/08/29/2024 6:30 AM [facility] ([facility])Alkaline Fvbtximvbss569(H)34 - 104 U/08/29/2024 6:30 AM [facility] ([facility])Total Protein5.9(L)6.0 - 8.3 g/dL 06/29/2025 6:30 AM [facility] ([facility])Albumin3.53.5 - 5.7 g/dL 06/29/2025 6:30 AM [facility] ([facility])Total Bilirubin1.1(H)0.3 - 1.0 mg/dL06/29/2025 6:30 AM [facility] ([facility])eGFR44.5(L)>60.0 mL/min/1.73m*211/ 6:30 AM [facility] ([place])Comment:[facility]???s estimated glomerular filtration rate (eGFR) will no [...] TimeReceived TimeBloodVenous blood specimen / UnknownVenipuncture / Hkclvbu7006/29/2025 5:45 AM EST06/29/2025 5:59 AM EST Narrative Authorizing ProviderResult TypeResult StatusIdrees Vivek CEE BLOOD ORDERABLESFinal ResultPerforming OrganizationAddressCity/State/ZIP CodePhone Number [facility] ([place]) [address] [place] [address] * Transfuse RBC (06/29/2025 5:05 AM EST) Narrative Authorizing ProviderResult TypeResult StatusIdrees Vivek WOODARD TRANSFUSION ORDERABLESFinal Result * Prepare RBC: 2 Units (06/29/2025 1:40 AM EST)ComponentValueRef RangeTest MethodAnalysis TimePerformed AtPathologist SignaturePRODUCT [id number] BLOOD BANKUnit [id number] BLOOD BANKUnit [facility] BLOOD BANK Unit RUST BLOOD BANKCrossmatch InterpretationCOMRUST BLOOD BANKDispense StatusTRMIMBRES [facility]IAL [facility] BLOOD BANKBlood Expiration [id number] BLOOD BANKProduct Blood Zbzm0290OYPW BLOOD BANKUnit Ikrftq166ZFZEAY BLOOD BANKPRODUCT CODE [id number] BLOOD BANKUnit [id number]-TTYRE BLOOD BANKUnit [facility] BLOOD BANKUnit RhPOSMIMBRES MEMORIAL [facility]OSPITAL BLOOD BANKCrossmatch InterpretationCOMRUST BLOOD BANKDispense StatusTRMIMBRES MEMORIAL [facility]OSPITAL BLOOD BANKBlood Expiration [id number] BLOOD BANKProduct Blood Jiwc1850CTMX BLOOD BANKSpecimen (Source)Anatomical Location / LateralityCollection Method / VolumeCollection TimeReceived Time Other06/29/2025 1:40 AM EST Narrative Authorizing ProviderResult TypeResult StatusIdrees Vivek LEMONOOD BANK PRODUCT ORDERABLESFinal ResultPerforming OrganizationAddressCity/State/ZIP Code Phone Number [facility] BLOOD BANK * Type and screen (06/29/2025 12:33 AM EST)ComponentValueRef RangeTest Method Analysis TimePerformed AtPathologist SignatureABO MuuwzaskX67/18/2025 2:08 AM [facility] BLOOD BANKRh KiryRUC5506/29/2025 2:08 AM [facility] BLOOD BANKAb ScrnNEG 06/29/2025 2:08 AM [facility] BLOOD BANKSpecimen (Source)Anatomical Location / LateralityCollection Method / VolumeCollection TimeReceived TimeBloodVenous blood specimen / UnknownVenipuncture / Femlfvb5206/29/2025 12:33 AM EST 06/29/2025 12:58 AM EST Narrative Authorizing ProviderResult TypeResult StatusNasheed Moisés [facility] BLOOD BANK TEST ORDERABLESFinal ResultPerforming OrganizationAddressCity/State/ZIP Code Phone Number [facility] BLOOD BANK * (ABNORMAL) Hemoglobin and hematocrit, blood (06/29/2025 12:33 AM EST)Component ValueRef RangeTest MethodAnalysis TimePerformed AtPathologist Signature Hemoglobin7.6(L)13.0 - 17.0 g/dL06/29/2025 1:28 AM [facility] ([facility])Qwzbrwsqdm94.3(L)39.0 - 50.0 %06/29/2025 1:28 AM [facility] ([facility])Specimen (Source)Anatomical Location / LateralityCollection Method / VolumeCollection TimeReceived TimeBloodVenous blood specimen / Unknown Venipuncture / Opgsuot1306/29/2025 12:33 AM EST06/29/2025 1:00 AM EST Narrative Authorizing ProviderResult TypeResult StatusNasheed Moisés [facility] BLOOD ORDERABLESFinal ResultPerforming OrganizationAddressCity/State/ZIP CodePhone Number [facility] [address] [place] [address] * CTA Abdomen Pelvis W IV Contrast [...] disease. Celiac artery: ??Patent. 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 Superior mesenteric artery: ??Patent. Atherosclerotic [...] disease. Celiac artery: Patent. Atherosclerotic disease causing gjux-ds-kqoirpeihdwpvp stenosis. Superior mesenteric artery: Patent. Atherosclerotic disease [...] signed: Bryson Grant. Authorizing ProviderResult TypeResult [facility]ED[facility] Final Result * (ABNORMAL) POCT occult blood stool manually resulted (06/28/2025 7:15 PM EST) ComponentValueRef RangeTest MethodAnalysis TimePerformed AtPathologist SignatureFecal Occult BloodPositiveQC Pass/FailPassedQC LOT #[id number] Expiration Date04/07Specimen (Source)Anatomical Location / LateralityCollection Method / VolumeCollection TimeReceived BibiWeahr81/17/2025 7:15 PM EST Narrative Authorizing ProviderResult TypeResult StatusNasheed Moisés MDPOINT OF CARE TEST ENTER/EDIT ORDERABLESFinal Result * (ABNORMAL) CBC auto differential (06/28/2025 6:39 PM EST)ComponentValueRef RangeTest MethodAnalysis TimePerformed AtPathologist SignatureAuto WBC5.724.00 - 10.60 10*3/uL06/28/2025 6:52 PM [facility] ([facility]ER)RBC3.24(L)4.20 - 5.70 10*6/uL06/28/2025 6:52 PM [facility] ([facility])Hemoglobin9.7(L) 13.0 - 17.0 g/dL06/28/2025 6:52 PM [facility] ([facility])Snyxmsfpqj70.8 (L)39.0 - 50.0 %06/28/2025 6:52 PM [facility] ([facility])MCV95.182.0 - 98.0 fL06/28/2025 6:52 PM [facility] ([facility])MCH29.927.0 - 33.0 pg 06/28/2025 6:52 PM [facility] ([facility])MCHC31.5(L)32.0 - 35.0 g/dL 06/28/2025 6:52 PM [facility] ([facility])RDW15.1(H)11.5 - 15.0 % 06/28/2025 6:52 PM [facility] ([facility])Neutrophils %76.5(H)40.0 - 72.0 %06/28/2025 6:52 PM [facility] ([facility])Lymphocytes %12.9(L)20.0 - 45.0 %06/28/2025 6:52 PM [facility] ([facility])Monocytes %6.35.0 - 12.0 %06/28/2025 6:52 PM [facility] ([facility])Eosinophils %3.30.0 - 6.0 %06/28/2025 6:52 PM [facility] ([facility])Basophils %0.70.0 - 1.0 % 06/28/2025 6:52 PM [facility] ([facility])Neutrophils Absolute4.371.60 - 7.60 10*3/uL06/28/2025 6:52 PM [facility] ([facility])Lymphocytes Absolute0.74(L)1.20 - 4.00 10*3/uL06/28/2025 6:52 PM [facility] ([facility])Monocytes Absolute0.360.10 - 1.00 10*3/uL06/28/2025 6:52 PM [facility] ([facility])Eosinophils Absolute0.190.00 - 0.50 10*3/uL06/28/2025 6:52 PM [facility] ([facility])Basophils Absolute0.040.00 - 0.20 10*3/uL 06/28/2025 6:52 PM [facility] ([facility])Ymurhparr277692 - 400 10*3/uL 06/28/2025 6:52 PM [facility] ([facility])nRBC %0.00 %06/28/2025 6:52 PM [facility] ([facility])Immature Granulocytes %0.30.0 - 1.0 %06/28/2025 6:52 PM [facility] ([facility])Immature Granulocytes Absolute0.020.00 - 0.20 10*3/uL06/28/2025 6:52 PM [facility] ([facility])Specimen (Source) Anatomical Location / LateralityCollection Method / VolumeCollection Time Received TimeBloodVenous blood specimen / UnknownVenipuncture / Unknown 06/28/2025 6:39 PM EST06/28/2025 6:43 PM EST Narrative Authorizing ProviderResult TypeResult StatusNasheed Moisés CEE BLOOD ORDERABLESFinal ResultPerforming OrganizationAddressCity/State/ZIP CodePhone Number [facility] ([facility]) [address] [place] [address] * (ABNORMAL) Comprehensive metabolic panel (06/28/2025 6:39 PM EST)Component ValueRef RangeTest MethodAnalysis TimePerformed AtPathologist SignatureSodium 135(L)136 - 145 mmol/L108/28/2024 7:09 PM [facility] ([facility]) Potassium5.13.5 - 5.1 mmol/L108/28/2024 7:09 PM [facility] ([facility]) Mdzodusz448(H)98 - 107 mmol/L108/28/2024 7:09 PM [facility] ([facility]) CO219(L)21 - 31 mmol/L108/28/2024 7:09 PM [facility] ([facility])Anion Hxz139 - 20 mmol/L108/28/2024 7:09 PM [facility] ([facility])BUN27(H)7 - 25 mg/dL06/28/2025 7:09 PM [facility] ([facility])Creatinine1.88(H)0.70 - 1.30 mg/dL06/28/2025 7:09 PM [facility] ([facility])BUN/Creatinine Ratio14. 7:09 PM [facility] ([facility])Yhejpee0660 - 100 mg/dL06/28/2025 7:09 PM [facility] ([facility])Calcium9.28.6 - 10.3 mg/dL06/28/2025 7:09 PM [facility] ([facility])AST75(H)13 - 39 U/L 06/28/2025 7:09 PM [facility] ([facility])ALT (SGPT)62(H)7 - 52 U/L 06/28/2025 7:09 PM [facility] ([facility])Alkaline Dbpebfllemc333(H)34 - 104 U/L108/28/2024 7:09 PM [facility] ([facility])Total Protein7.36.0 - 8.3 g/dL06/28/2025 7:09 PM [facility] ([facility])Albumin4.23.5 - 5.7 g/dL06/28/2025 7:09 PM [facility] ([facility])Total Bilirubin0.90.3 - 1.0 mg/dL06/28/2025 7:09 PM [facility] ([facility])eGFR37.5(L)>60.0 mL/min/1.73m* 7:09 PM [facility] ADAN)Comment:[facility]???s estimated glomerular filtration rate (eGFR) will no [...] TimeReceived TimeBloodVenous blood specimen / UnknownVenipuncture / Mbrxlmg0906/28/2025 6:39 PM EST06/28/2025 6:43 PM EST Narrative Authorizing ProviderResult TypeResult StatusNasheed Moisés CEE BLOOD ORDERABLESFinal ResultPerforming OrganizationAddressCity/State/ZIP CodePhone Number [facility] ([place]) [address] [place] [address] documented in this encounter Visit Diagnoses Diagnosis [...] (CMS/HCC) Renal lesion 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 Do not crush, chew, or split. Given06/29/2025 9:57 PM EST10 nsYekbi6506/29/2025 1:42 PM EST10 mg bisacodyl (Dulcolax) EC tablet 10 mg 10 mg, oral, 2 times daily, First dose on Sat06/30/25 at 1430, For 3 doses, Phase II/On Unit, Do not give within 1 hour of antacids, milk, or dairy products. Do not crush, chew, or split. Given07/01/2025 6:00 AM EST10 vmOlyyr9006/30/2025 3:31 PM EST10 mg buPROPion XL (Wellbutrin XL) 24 hr tablet 300 mg 300 mg, oral, Every morning, First dose on Sat06/29/25 at 1400, For 99 days, Do not crush, chew, or split. Given07/01/2025 9:53 AM FHT124 koLdbqe8906/30/2025 9:27 AM IHR936 mgGiven 06/29/2025 1:43 PM UUE613 mg busPIRone (Buspar) tablet 15 mg 15 mg, oral, 2 times daily RT, First dose on Sat06/29/25 at 1400, For 99 days Given07/01/2025 8:17 AM EST15 rsQwnnt0006/30/2025 10:26 PM EST15 bkJjqdd2706/30/2025 9:27 AM EST15 mg clopidogrel (Plavix) tablet 75 mg 75 mg, oral, Daily, First dose on Sat06/29/25 at 1000, For 99 days Given07/01/2025 4:26 PM EST75 qwByluy7806/30/2025 9:27 AM EST75 faLhilq4406/29/2025 1:42 PM EST75 mg furosemide (Lasix) injection 20 mg 20 mg, intravenous, Once, On Sat06/29/25 at 0820, For 1 dose, Administer undiluted IV push at a rate no greater than 20 mg/minute. Given06/29/2025 1:42 PM EST20 mg iohexol (OMNIPaque) 350 mg iodine/mL injection 100 mL 100 mL, intravenous, Once in imaging, Starting on Sat06/28/25 at 2114, For 1 dose Given06/28/2025 9:14 PM FLU369 mL melatonin tablet 5 mg 5 mg, oral, Nightly PRN, sleep, Starting on Sat06/29/25 at 0423, For 99 days Given06/30/2025 10:26 PM EST5 mg metoprolol tartrate (Lopressor) tablet 50 mg 50 mg, oral, 2 times daily, First dose on Sat06/29/25 at 1400, For 99 days Given07/01/2025 9:53 AM EST50 fqQqurp3406/30/2025 10:27 PM EST50 shRdizx6706/30/2025 9:27 AM EST50 mg ondansetron HCl (PF) [...] in 2 divided doses Given06/29/2025 3:36 PM VUP556 g polyethylene glycol-electrolytes (Nulytely) solution 4,000 mL 4,000 mL, oral, Once, On Sat06/30/25 at 1430, For 1 dose, Phase II/On Unit Given06/30/2025 3:30 PM EST4,000 mL sodium chloride 0.9 % bolus 1,000 mL 1,000 mL, intravenous, at 2,000 mL/hr, Administer over 30 Minutes, Once, On Sat06/28/25 at 2000, For 1 dose New 06/28/2025 8:02 PM EST1,000 iM4760 mL/hr sodium chloride 0.9 % infusion 20 mL/hr, intravenous, Continuous, Starting on Sat06/29/25 at 0235, For 12 hours, With Blood Transfusion New 06/29/2025 5:01 AM EST20 mL/hr20 mL/hr traZODone (Desyrel) tablet 100 mg 100 mg, oral, Nightly, First dose on Sat06/29/25 at 2200, For 99 days Given06/30/2025 10:25 PM YMC066 hjOvluj4006/29/2025 9:57 PM ATM752 mgdocumented in this encounter Active and Recently [...] Date Susan Watson MD [address] [place] [address] PCP - GeneralNurse Practitioner10/13/24documented as of this encounter
--- OUTSIDE RECORDS SUMMARY | 2025-06-30 14:08 | XMS_ITS | Encounter Summary ---
Author Organization [facility] Address [address] [place] [address] Care Team Providers Care Supervisor Uranium Processing Name Role Phone Susan Watson MD Primary Care Provider [phone] Reason for Visit * Auth/Cert (Routine)SpecialtyDiagnoses / ProceduresReferred By ContactReferred To Contact Diagnoses Rectal bleeding Procedures NO CODED SERVICE German Cabral MD [address] [place] [address] Phone: tel: fax: [facility] Emergency [address] [place] [address] Phone: tel: fax: Referral IDStatusReasonStart DateExpiration DateVisits RequestedVisits [id number] Encounter Details DateTypeDepartmentCare Team (Latest Contact Info)Lbzvylmdihn71/19/2025 2:08 PM ESTAnesthesia Event [facility] [address] [place] [address] Melody Cortes MD [address] [facility] [address] [place] [address] Cyril Figueroa MD [address] [place] [address] Anesthesia Record Procedure NameResponsible AnesthesiologistAnesthesia Start TimeAnesthesia Stop TimeDIAGNOSTIC COLONOSCOPYMelody Cortes MD06/30/25 24459308/30/24 1427DateTime MgnbxMidrglj88/19/235954899721Ln Syopp1982If Start Nuti3882Wk InductionThe patient was reevaluated immediately before moderate or deep sedation use and before anesthesia induction.1414Anesthesia Qleba0925Gsie OutTime out completed (confirmed patient ID, surgeon, procedure, and operative site).1422an stop data 1427Handoff to ReceivingI completed my handoff to the receiving clinician during which we: 1. Identified the patient 2. Identified the responsible provider 3. Reviewed the pertinent medical history 4. Discussed the surgicalcourse 5. Reviewed intra-op anesthesia management and issues during anesthesia 6. Set expectations for post-procedure period 7. Allowed opportunity for questions and acknowledgement of understanding.1427An Stop* NameTotallidocaine (Xylocaine) 20 mg/ml injection 2 %50 mgpropofol 10 mg/mL80.16 doDC906.32 mL * Agents Name O2 N2O Air N2O Inspired N2O Inspired O2 Setting * Blood No blood administrations on file. TypeDetailsPlacementRemovalOpen Wound (Any Pressure Injuries included)06/07/25; 1535; N (surgical site); Surgical; Groin; Right, Upper, Mid; incisional wound on the right groin1 1535 by Maria M Almendarez Wound (Any Pressure Injuries included)06/07/25; 1556; N (surgical site); Surgical; Leg; Distal, Right, Upper, Other (Comment) (lateral upper right leg)06/07/25 1556 by Meme Almendarez IVPlacement Date: 06/28/25; Placement Time: 1855; Catheter Size: 20 G; Orientation: Anterior, Left; Location: Forearm; Technique: Anatomical landmarks; Inserted by: JOHANA Greenberg; Insertion Attempts: 1; Difficult Venous Access? No; Patient Tolerance: Tolerated well; Removal Date: 07/01/25; Removal Time:175; Removal Reason: Pt shlfigapar53/17/251855 by Yari Mccollum RN07/01/251749 by Meme Hickey IVPlacement Date: 06/29/25; Placement Time: 020; Catheter Size: 20 G; Orientation: Anterior, Right; Location: Forearm; Site Prep: Chlorhexidine ; Local Anesth: None; Technique: Ultrasound guidance; Inserted by: Daniel VAUGHN; Insertion Attempts: 1; Difficult Venous Access? Yes; Patient Tolerance: Tolerated well; Removal Date: 07/01/25; Removal Time: 175; Removal Reason: Pt lxfurgknec55/18/25 0201 by Daniel Thomson RN07/01/25 1750 by Catherine Ludwig RNClosed Skin Issue (NOT pressure injury)06/29/25; 1040; Y; Abrasion; Pretibial; Distal, Left, Anterior; 07/01/25; 81517708/29/24 1040 by Carmen Box RN07/01/25 2253 by Automatic Discharge Providerdocumented in this encounter Social History Tobacco UseTypesPacks/DayYears UsedDateSmoking Tobacco: FormerCigarettes Smokeless Tobacco: CurrentChewAlcohol UseStandard Drinks/WeekCommentsNot Currently0 (1 standard drink = 0.6 oz pure alcohol)PHQ-2AnswerDate Recorded Patient Health Questionnaire-2 Qkwod41408/14/2024Humiliation, Afraid, Rape, and Kick questionnaireAnswerDate RecordedWithin the [...] times a week06/15/2025How often do you attend gnosticist or islam services?Never06/15/2025Do you belong to any clubs or organizations such as gnosticist groups, unions, fraternal or athletic groups, or school groups?No06/15/2025How often do you attend meetings of the clubs or organizations you belong to?Never06/15/2025re you , , , , never , or living with a partner?Cccqkgmly48/04/2025UDIT-C AnswerDate RecordedQ1: How often do you have [...] medical care, and heating?Not hard at all06/29/2025 German [place] [employer] Occupational Health - Occupational Stress Questionnaire AnswerDate RecordedDo you feel stress - tense, restless, nervous, or anxious, or unable to sleep at night because yourmind is troubled all the time - these days? Only a vplpwx0506/15/2025HC UtilitiesAnswerDate RecordedIn the past 12 months has the [place], gas, oil, or water company threatened to shut off services in your [...] were you homeless or living in a nursing home (including now)?No06/29/2025Hunger Vital SignAnswerDate Recorded Within the past 12 months, you worried that your food would run out before you got the money to buymore.Never true06/29/2025Within the past 12 months, the food you bought just didn't last and you didn't have money to get more.Never true 06/29/2025Sex and Gender InformationValueDate RecordedSex Assigned at [facility] 04/08/2025 7:15 AM EDTLegal LjlWzym5002/07/2022 10:15 PM EDTGender IdentityMale 04/08/2025 7:15 AM EDTSexual OrientationHeterosexual or Fapvsblq02/28/2025 7:15 AM EDTdocumented as of this encounter Plan of Treatment DateTypeDepartmentCare Team (Latest Contact Info)Uvojcniyzsd27/08/2025 1:45 PM ESTFollow-[place] [facility] [address] [place] [phone] Nadia Sheppard PA-C [address] [facility] [place] [phone] 07/22/2025 9:30 AM ESTFollow-[place] [facility] [address] [place] [address] Sarah Tolliver MD [address] [facility] [address] [place] [phone] 07/29/2025 2:30 PM ESTFollow-Up [facility] [address] [place] [phone] [place], [place], [address] [place], [place] [phone] 08/23/2025 7:30 AM ESTHospital Encounter [facility] Main Operating Room [address] [place] [phone] Chris Andre MD [address] [place] [phone] 08/23/2025 7:30 AM EST - 08/23/2025 11:00 AM ESTSurgery [facility] Main Operating Room [address] [place] [phone] Chris Andre MD [address] [place] [phone] ENDARTERECTOMY, FEMORAL WITH POSSIBLE FEM TO POP QXZCII9109/21/2025 11:00 AM EST Follow-Up [facility] Nephrology [address] [place] [address] Batsheva Beckwith MD [address] [facility] 2 [facility] [place] [place] [address] NamePriorityAssociated DiagnosesDate/TimeENDARTERECTOMY, FEMORAL Peripheral arterial occlusive disease Encounter for pre-operative examination 08/23/2025 7:30 AM ESTdocumented as of this encounter Goals GoalPatient Goal TypeAssociated ProblemsRecent ProgressPatient-Stated?Author Blood Pressure < 140/90 Blood Haaptcyx780/78(07/06/2025 12:48 PM EST)Cy Child, JOHANAdocumented as of this encounter Visit Diagnoses Diagnosis Encounter for pre-operative examination- Primary Peripheral arterial occlusive disease Unspecified peripheral vascular disease Peripheral arterial occlusive disease Unspecified peripheral vascular disease Encounter for pre-operative examination * Anesthesia Postprocedure Evaluation - Melody Cortes MD - 06/30/2025 3:00 PM EST Patient: You Garcia Procedure Summary Date: 06/30/25 Room / Location: [facility] [place] [facility] Anesthesia Start: 1408 Anesthesia Stop: 1426 Procedure: DIAGNOSTIC COLONOSCOPY Diagnosis: Scheduled Providers: Kortney Gandhi MD Responsible Provider: Melody Cortes MD Anesthesia Type: MAC ASA Status: 3 Anesthesia Type: MAC Vitals Value Taken Time BP 128/48 06/30/25 14:45 Temp 36.3 ??C (97.3 ??F) 06/30/25 14:27 Pulse 61 06/30/25 14:45 Resp 21 06/30/25 14:45 SpO2 100 % 06/30/25 14:45 Anesthesia Post Evaluation Patient location during evaluation: PACU Patient participation: complete - patient participated Level of consciousness: awake Pain score: 0 Pain management: adequate Airway patency: patent Cardiovascular status: acceptable Respiratory status: acceptable Patient is hemodynamically stable and is able to be discharged from PACU per anesthesia protocol. No notable events documented. * Anesthesia Preprocedure Evaluation - Melody Cortes MD - 06/29/2025 7:19 PM EST Patient: You Garcia Procedure Information Date/Time: 06/30/25 1345 Scheduled providers: Melody Cortes MD; MATHIEU Cruz; Kortney Gandhi MD Procedure: DIAGNOSTIC COLONOSCOPY Location: [facility] [place] [facility] Relevant Problems Cardio (+) Atherosclerosis of arteries of extremities (+) CAD (coronary artery disease) of artery bypass graft (+) Coronary artery disease involving [place] coronary artery of [place] heart without angina pectoris (+) Coronary atherosclerosis (+) Hypertensive disorder (+) Migraine (+) Peripheral arterial occlusive disease (+) Primary hypertension (+) Pulmonary hypertension (CMS/HCC) GI (+) Gastroesophageal reflux disease without esophagitis /Renal (+) Chronic kidney disease, stage 3b (CMS/HCC) (+) Chronic kidney disease, stage 4 (severe) (CMS/HCC) (+) Hypertensive chronic kidney disease with stage 1 through stage 4 chronic kidney disease, or unspecified chronic kidney disease (+) Renal lesion Neuro/Psych (+) Migraine Pulmonary (+) Chronic obstructive pulmonary disease, unspecified (CMS/HCC) Underwent right femoral to popliteal bypass on 06/07/2025 and was started on Xarelto (vascular planning left fem end art as well). On Xarelto and Plavix. Patient presented to ED with bloody bowel movements on 06/28/2025. CTA showed possible bleeding sigmoid diverticula. HGB 9.7 in ED which dropped to 7.6 after several hours. Transfused 2 units and improved to 8.9. GI consulted and planning colonoscopy. Also presented to ED on 06/26/2025 for fall and was discharged, CTA showed patent right bypass graft from recent surgery. Clinical information reviewed: TTE 04/27/2025 LVEF 40-45% Normal RV size and function Biatrial enlargement Left heart catheterization 05/11/2025 FINAL IMPRESSIONS: Severe, three-vessel [place] coronary artery disease There are 2 out of 3 bypass graft patent; the saphenous vein graft to the posterior descending branch is known to be occluded Mildly reduced global left ventricular systolic function by noninvasive imaging Results from last 7 days Lab Units 06/29/25 1747 06/29/25 0918 06/29/25 0545 WBC AUTO 10*3/uL -- -- 4.90 HEMOGLOBIN g/dL 12.4* 10.9* 8.9* HEMATOCRIT % -- 33.8* 28.6* PLATELETS AUTO 10*3/uL -- -- 146* Results from last 7 days Lab Units 06/29/25 0545 SODIUM mmol/L 137 POTASSIUM mmol/L 5.1 CHLORIDE mmol/L 111* CO2 mmol/L 21 BUN mg/dL 23 CREATININE mg/dL 1.63* CALCIUM mg/dL 8.6 TOTAL PROTEIN g/dL 5.9* BILIRUBIN TOTAL mg/dL 1.1* ALK PHOS U/L 187* ALT U/L 45 AST U/L 49* GLUCOSE mg/dL 80 Physical Exam Airway Mallampati: II TM distance: >3 FB Neck ROM: full Cardiovascular - normal exam Rhythm: regular Rate: normal Dental (+) lower dentures, upper dentures, edentulous Pulmonary - normal examComments: Respirations are: Non-labored in effort, Regular in pattern, and Normal in rate. There is visible chest wall excursion that is: Bilateral & Symmetrical. Neurological Abdominal Anesthesia Plan ASA 3 MAC (Plan for MAC sedation with standard ASA monitors. GETA as a backup.) The patient is not a current smoker. intravenous induction Anesthetic plan and risks discussed with patient. Use of blood products discussed with patient who consented to blood products. Plan discussed with CAA. Additional Equipment Requests documented in this encounter Administered Medications Medication OrderMAR ActionAction DateDoseRateSite lactated Ringer's infusion intravenous, As needed, Starting on Sat06/30/25 at 1418, Anesthesia Intraprocedure Given06/30/2025 2:18 PM XMF115 mLNew Bag06/30/2025 2:08 PM EST1 mL/hr1 mL/hr lidocaine HCl (Xylocaine) 20 mg/mL (2 %) injection intravenous, As needed, Starting on Sat06/30/25 at 1412, Anesthesia Intraprocedure Given06/30/2025 2:12 PM EST50 mg propofol (Diprivan) 10 mg/mL infusion intravenous, Continuous PRN, Starting on Sat06/30/25 at 1412, Anesthesia Intraprocedure Rate/Dose Cgtpss2106/30/2025 2:14 PM GPE050 mcg/kg/min70.92 mL/voZovdu7806/30/2025 2:13 PM EST25 mgNew Bag06/30/2025 2:12 PM IWJ654 mcg/kg/min59.1 mL/hrdocumented in this encounter Care Teams Team MemberRelationshipSpecialtyStart DateEnd Date Susan Watson MD [address] [place] [address] PCP - GeneralNurse Practitioner10/13/24documented as of this encounter
--- OUTSIDE RECORDS SUMMARY | 2025-07-01 13:44 | XMS_ITS | Encounter Summary ---
Author Organization [facility] Address [address] [address] Care Team Providers Care Spark Plug Tester Name Role Phone Susan Watson MD Primary Care Provider [phone] Reason for Visit * Auth/Cert (Routine)SpecialtyDiagnoses / ProceduresReferred By ContactReferred To Contact Diagnoses Rectal bleeding Procedures NO CODED SERVICE German Cabral MD [address] [place] [address] Phone: tel: fax: [facility] Emergency [address] [place] [address] Phone: tel: fax: Referral IDStatusReasonStart DateExpiration DateVisits RequestedVisits [id number] Encounter Details DateTypeDepartmentCare Team (Latest Contact Info)Ssqbpfejvdy04/20/2025 1:44 PM ESTAnesthesia Event [facility] Endoscopy [address] [place] [address] Melody Cortes MD [address] [facility] 2 [place] [address] Bebe Livingston MD [address] [place] [address] Anesthesia Record Procedure NameResponsible AnesthesiologistAnesthesia Start TimeAnesthesia Stop TimeDIAGNOSTIC COLONOSCOPYeMlody Cortes MD07/01/25 65299408/31/24 1443DateTime KmnusUzvieaw44/20/083162158662Hh Ddmft3091Tb Start Ouqr7590To InductionThe patient was reevaluated immediately before moderate or deep sedation use and before anesthesia induction.1349Anesthesia Lxatr7354Abpx OutTime out completed (confirmed patient ID, surgeon, procedure, and operative site).1436an stop data 1441Handoff to ReceivingI completed my handoff to the receiving clinician during which we: 1. Identified the patient 2. Identified the responsible provider 3. Reviewed the pertinent medical history 4. Discussed the surgicalcourse 5. Reviewed intra-op anesthesia management and issues during anesthesia 6. Set expectations for post-procedure period 7. Allowed opportunity for questions and acknowledgement of understanding.1443An Stop* NameTotalfentaNYL (Sublimaze) injection 50 mcg/mL100 mcglidocaine (Xylocaine) 20 mg/ml injection 2 %50 mg propofol 10 mg/mL291.06 mgondansetron 2 mg/mL4 mgLR1.47 mLPHENYLEPHRINE 1 MG/10 ML (100 MCG/ML) IN 0.9 % SOD.CHLORIDE IV KHTYQQP913 mcg * Agents Name O2 N2O Air Desflurane Inspired Desflurane N2O Inspired N2O Inspired O2 Setting * Blood No blood administrations on file. TypeDetailsPlacementRemovalOpen Wound (Any Pressure Injuries included)06/07/25; 1535; N (surgical site); Surgical; Groin; Right, Upper, Mid; incisional wound on the right groin1 1535 by Maria M Almendarez Wound (Any Pressure Injuries included)06/07/25; 1556; N (surgical site); Surgical; Leg; Distal, Right, Upper, Other (Comment) (lateral upper right leg)06/07/25 1556 by Kartik Almendarezpheral IVPlacement Date: 06/28/25; Placement Time: 185; Catheter Size: 20 G; Orientation: Anterior, Left; Location: Forearm; Technique: Anatomical landmarks; Inserted by: JOHANA Greenberg; Insertion Attempts: 1; Difficult Venous Access? No; Patient Tolerance: Tolerated well; Removal Date: 07/01/25; Removal Time:1750; Removal Reason: Pt oyngjdwnlu19/17/251855 by Yari Mccollum RN07/01/251749 by CHAMP Hickeyeripheral IVPlacement Date: 06/29/25; Placement Time: 200; Catheter Size: 20 G; Orientation: Anterior, Right; Location: Forearm; Site Prep: Chlorhexidine ; Local Anesth: None; Technique: Ultrasound guidance; Inserted by: Daniel VAUGHN; Insertion Attempts: 1; Difficult Venous Access? Yes; Patient Tolerance: Tolerated well; Removal Date: 07/01/25; Removal Time: 1749; Removal Reason: Pt fuwmyvrcxc37/18/25 020 by Daniel Thomson RN07/01/25 1750 by Catherine Ludwig RNClosed Skin Issue (NOT pressure injury)06/29/25; 1040; Y; Abrasion; Pretibial; Distal, Left, Anterior; 07/01/25; 14446608/29/24 1040 by Carmen Box RN07/01/25 2253 by Automatic Discharge Providerdocumented in this encounter Social History Tobacco UseTypesPacks/DayYears UsedDateSmoking Tobacco: FormerCigarettes Smokeless Tobacco: CurrentChewAlcohol UseStandard Drinks/WeekCommentsNot Currently0 (1 standard drink = 0.6 oz pure alcohol)PHQ-2AnswerDate Recorded Patient Health Questionnaire-2 Ildqy53508/14/2024Humiliation, Afraid, Rape, and Kick questionnaireAnswerDate RecordedWithin the [...] times a week06/15/2025How often do you attend druze or faith services?Never06/15/2025Do you belong to any clubs or organizations such as druze groups, unions, fraternal or athletic groups, or school groups?No06/15/2025How often do you attend meetings of the clubs or organizations you belong to?Never06/15/2025re you , , , , never , or living with a partner?Mlegvuskn94/04/2025UDIT-C AnswerDate RecordedQ1: How often do you have [...] medical care, and heating?Not hard at all06/29/2025 [facility] [place] of Occupational Health - Occupational Stress Questionnaire AnswerDate RecordedDo you feel stress - tense, restless, nervous, or anxious, or unable to sleep at night because yourmind is troubled all the time - these days? Only a afgyso9106/15/2025HC UtilitiesAnswerDate RecordedIn the past 12 months has the electric, gas, oil, or water company threatened to [...] were you homeless or living in a skilled nursing (including now)?No06/29/2025Hunger Vital SignAnswerDate Recorded Within the past 12 months, you worried that your food would run out before you got the money to buymore.Never true06/29/2025Within the past 12 months, the food you bought just didn't last and you didn't have money to get more.Never true 06/29/2025Sex and Gender InformationValueDate RecordedSex Assigned at BirthMale 04/08/2025 7:15 AM EDTLegal FpcDywz5402/07/2022 10:15 PM EDTGender IdentityMale 04/08/2025 7:15 AM EDTSexual OrientationHeterosexual or Wftwfpcq81/28/2025 7:15 AM EDTdocumented as of this encounter Plan of Treatment DateTypeDepartmentCare Team (Latest Contact Info)Ptucwdopvng41/08/2025 1:45 PM ESTFollow[facility] [address] [facility] [place] [address] Nadia Sheppard PA-C [address] [facility], [address] [place] [phone] 07/22/2025 9:30 AM ESTFollow-Up [facility] [address] [place] [address] Sarah Tolliver MD [address] [facility] 1 [facility] [place] [address] 07/29/2025 2:30 PM ESTFollow-Up [facility] Medical [facility] Gastroenterology [address] [facility] [place] [phone] Enix, Ebony, FAMILY CONSUMER SCIENTIST [address] [place], [place] [phone] 08/23/2025 7:30 AM ESTHospital Encounter [facility] Main Operating Room [address] [place] [address] Chris Andre MD [address] [facility] [place] [address] 08/23/2025 7:30 AM EST - 08/23/2025 11:00 AM ESTSurgery [facility] Main Operating Room [address] [place] [address] Chris Andre MD [address] [place] [address] ENDARTERECTOMY, FEMORAL WITH POSSIBLE FEM TO POP KEEMCV4609/21/2025 11:00 AM EST Follow-Up [facility] at [facility] Nephrology [address] [place] [address] Batsheva Beckwith MD [address] [facility] 2 [facility] [place] [phone] NamePriorityAssociated DiagnosesDate/TimeENDARTERECTOMY, FEMORAL Peripheral arterial occlusive disease Encounter for pre-operative examination 08/23/2025 7:30 AM ESTdocumented as of this encounter Goals GoalPatient Goal TypeAssociated ProblemsRecent ProgressPatient-Stated?Author Blood Pressure < 140/90 Blood Ukvgchrb525/78(07/06/2025 12:48 PM EST)Cy Child, JOHANAdocumented as of this encounter Visit Diagnoses Diagnosis Encounter for pre-operative examination- Primary Peripheral arterial occlusive disease Unspecified peripheral vascular disease Peripheral arterial occlusive disease Unspecified peripheral vascular disease Encounter for pre-operative examination * Anesthesia Postprocedure Evaluation - Melody Cortes MD - 07/01/2025 3:22 PM EST Patient: You Garcia Procedure Summary Date: 07/01/25 Room / Location: [facility] Anesthesia Start: 1344 Anesthesia Stop: 1443 Procedure: DIAGNOSTIC COLONOSCOPY Diagnosis: Scheduled Providers: Melody Cortes MD; MATHIEU Rosales; Christie Horton MD Responsible Provider: Melody Cortes MD Anesthesia Type: MAC ASA Status: 3 Anesthesia Type: MAC Vitals Value Taken Time BP 126/57 07/01/25 15:15 Temp 36 ??C (96.8 ??F) 07/01/25 15:15 Pulse 58 07/01/25 15:22 Resp 15 07/01/25 15:22 SpO2 95 % 07/01/25 15:22 Vitals shown include unfiled device data. Anesthesia Post Evaluation Patient location during evaluation: PACU Patient participation: complete - patient participated Level of consciousness: awake Pain score: 0 Pain management: adequate Airway patency: patent Cardiovascular status: acceptable Respiratory status: acceptable Patient is hemodynamically stable and is able to be discharged from PACU per anesthesia protocol. No notable events documented. * Anesthesia Preprocedure Evaluation - Melody Cortes MD - 06/30/2025 4:44 PM EST Patient: You Garcia Procedure Information Date/Time: 07/01/25 1330 Scheduled providers: Melody Cortes MD; MATHIEU Rosales; Christie Horton MD Procedure: DIAGNOSTIC COLONOSCOPY Location: [facility] Relevant Problems Cardio (+) Atherosclerosis of arteries of extremities (+) CAD (coronary artery disease) of artery bypass graft (+) Coronary artery disease involving [place] coronary artery of [place] heart without angina pectoris (+) Coronary atherosclerosis (+) Hypertensive disorder (On amlodipine, metoprolol) (+) Migraine (+) Peripheral arterial occlusive disease (S/P femoropopliteal bypass surgery) (+) Primary hypertension (+) Pulmonary hypertension (CMS/HCC) GI (+) Gastroesophageal reflux disease without esophagitis /Renal (+) Chronic kidney disease, stage 3b (CMS/HCC) (+) Chronic kidney disease, stage 4 (severe) (CMS/HCC) (+) Hypertensive chronic kidney disease with stage 1 through stage 4 chronic kidney disease, or unspecified chronic kidney disease (+) Renal lesion Neuro/Psych (+) Migraine Pulmonary (+) Chronic obstructive pulmonary disease, unspecified (CMS/HCC) (Uses Trelegy, Ellipta) Circulatory (+) Chronic heart failure with mildly reduced ejection fraction (HFmrEF) (CMS/HCC) (+) Reduced ejection fraction concurrent with and due to acute heart failure (CMS/HCC) (LVEF 40-45%04/27/25) Other (+) H/O: lung cancer Underwent right femoral to popliteal bypass on [...] heart catheterization 05/11/2025 FINAL IMPRESSIONS: Severe, three-vessel [place] coronary artery disease There are 2 out of 3 bypass graft patent; the saphenous vein graft to the posterior descending branch is known to be occluded Mildly reduced global left ventricular systolic function by noninvasive imaging Encounter Date: 05/11/25 Electrocardiogram, 12-lead Result Value Ventricular Rate 54 Atrial Rate 54 NV Interval 190 QRS DURATION 120 QT Interval 492 QTC CALCULATION(BAZETT) 466 P Wright 36 R-Wright -22 T Wave Wright 95 Impression Sinus bradycardia Intra-ventricular conduction delay Nonspecific ST and T wave abnormality Abnormal ECG When compared with ECG of 08-APR-2025 07:50, no significant changes was noted Confirmed by Saqib Saldana (102) on 05/11/2025 11:35:47 PM Results from last 7 days Lab Units 06/29/25 2310 06/29/25 1747 06/29/25 0918 06/29/25 0545 WBC AUTO 10*3/uL -- -- -- 4.90 HEMOGLOBIN g/dL 10.5* < > 10.9* 8.9* HEMATOCRIT % -- -- 33.8* 28.6* PLATELETS AUTO 10*3/uL -- -- -- 146* < > = values in this interval not displayed. Results from last 7 days Lab Units [...] Neck ROM: full Cardiovascular - normal exam Dental (+) lower dentures, edentulous, upper dentures Pulmonary - normal exam Neurological Abdominal - normal exam Anesthesia Plan ASA 3 MAC (Plan Monitored Anesthesia Care (MAC) with backup general anesthesia if needed ) The patient is not a current smoker. Patient was previously instructed to abstain from smoking on day of procedure. Patient did not smoke on day of procedure. Education provided regarding risk of obstructive sleep apnea. intravenous induction Anesthetic plan and risks discussed with patient. Use of blood products discussed with patient who consented to blood products. Plan discussed with attending and resident. Additional Equipment Requests documented in this encounter Administered Medications Medication OrderMAR ActionAction DateDoseRateSite fentaNYL (Sublimaze) injection intravenous, As needed, Starting on Lauren 07/01/25 at 1344, Anesthesia Intraprocedure Given07/01/2025 1:55 PM EST25 fgpRozso57/20/2025 1:52 PM EST50 mcgGiven 07/01/2025 1:44 PM EST25 mcg lactated Ringer's infusion intravenous, Continuous PRN, Starting on Lauren 07/01/25 at 1315, Anesthesia Intraprocedure New Bag07/01/2025 1:15 PM EST1 mL/hr1 mL/hr lidocaine HCl (Xylocaine) 20 mg/mL (2 %) injection intravenous, As needed, Starting on Lauren 07/01/25 at 1350, Anesthesia Intraprocedure Given07/01/2025 1:50 PM EST50 mg ondansetron (Zofran) injection intravenous, As needed, Starting on Lauren 07/01/25 at 1357, Anesthesia Intraprocedure Given07/01/2025 1:57 PM EST4 mg phenylephrine in NS (Chava-Synephrine) 100 mcg/mL syringe intravenous, As needed, Starting on Lauren 07/01/25 at 1408, Anesthesia Intraprocedure Given07/01/2025 2:23 PM WVP203 lwcBizmd36/20/2025 2:15 PM WNX556 mcgGiven 07/01/2025 2:08 PM PHB853 mcg propofol (Diprivan) 10 mg/mL infusion intravenous, Continuous PRN, Starting on Lauren 07/01/25 at 1349, Anesthesia Intraprocedure Rate/Dose Mptofl6707/01/2025 2:23 PM EST80 mcg/kg/min33.264 mL/hrNew Bag07/01/2025 1:49 PM FJY407 mcg/kg/min41.58 mL/hrdocumented in this encounter Care Teams Team MemberRelationshipSpecialtyStart DateEnd Date Susan Watson MD [address] [place] [address] PCP - GeneralNurse Practitioner10/13/24documented as of this encounter
--- OUTSIDE RECORDS SUMMARY | 2025-07-05 14:15 | XMS_ITS | Encounter Summary ---
Author Organization [facility] Address [address] [place] [address] Care Team Providers Care Hospice Volunteer Name Role Phone Susan Watson MD Primary Care Provider [phone] Reason for Visit * ReasonCommentsFollow-up Encounter Details DateTypeDepartmentCare Team (Latest Contact Info)Tpteikzsogb78/24/2025 2:[address] [facility] Vascular and Endovascular Surgery [address] [place] [phone] Nadia Sheppard PA-C [address] [facility], [address] [place] [address] Postoperative wound dehiscence, subsequent encounter (Primary Dx); PAOD (peripheral arterial occlusive disease) Social History Tobacco UseTypesPacks/DayYears UsedDateSmoking Tobacco: FormerCigarettes Smokeless Tobacco: CurrentChew Tobacco Cessation:Ready to Q uit: Not Asked; Counseling Given: Not Answered Alcohol UseStandard Drinks/WeekCommentsNot Currently0 (1 standard drink = 0.6 oz pure alcohol)PHQ-2AnswerDate RecordedPatient Health Questionnaire-2 Score6 06/14/2025Humiliation, Afraid, Rape, and Kick questionnaireAnswerDate Recorded Within the last year, have you been afraid of your partner or ex-partner?No 06/29/2025Emotionally AbusedNot on file06/29/2025Physically AbusedNot on file 11/18/2025Sexually AbusedNot on file06/29/2025Social Connection and Isolation PanelAnswerDate RecordedIn a typical week, how many times do you talk on the phone with family, friends, or neighbors?More than three times a week06/15/2025 How often do you get together with friends or relatives?More than three times a week06/15/2025How often do you attend buddhist or yazdanism services?Never 06/15/2025Do you belong to any clubs or organizations such as buddhist groups, unions, fraGloNav or athletic groups, or school groups?No06/15/2025How often do you attend meetings of the clubs or organizations you belong to?Never06/15/2025 Are you , , , , never , or living with a partner?Jwsyqbhna66/04/2025UDIT-CAnswerDate RecordedQ1: How often do you have a drink containing alcohol?Never06/15/2025Q2: How many drinks containing alcohol do you have on a typical day when you are drinking?Patient does not drink 06/15/2025Q3: How often do you have six or more drinks on one occasion?Never 06/15/2025Overall Financial Resource Strain (CARDIA)AnswerDate RecordedHow hard is it for you to pay for the very basics like food, housing, medical care, and heating?Not hard at all06/29/2025[facility] [place] [facility] - Occupational Stress QuestionnaireAnswerDate RecordedDo you feel stress - tense, restless, nervous, or anxious, or unable to sleep at night because yourmind is troubled all the time - these days?Only a fzdkmp5106/15/2025HC UtilitiesAnswer Date RecordedIn the past 12 months has the [employer], gas, oil, or water company threatened to shut off services in your home?No06/29/2025TransportationAnswer Date RecordedIn the past 12 months, has lack of transportation kept you from medical appointments or from getting medications?No06/29/2025In the past 12 months, has lack of transportation kept you from meetings, work, or from getting things needed for daily living?No06/29/2025Housing Stability Vital SignAnswer Date RecordedIn the last 12 months, was there a time when you were not able to pay the mortgage or rent on time?No06/29/2025In the past 12 months, how many times have you moved where you were living?t any time in the past 12 months, were you homeless or living in a longterm (including now)?No06/29/2025 Hunger Vital SignAnswerDate RecordedWithin the past 12 months, you worried that your food would run out before you got the money to buymore.Never true06/29/2025 Within the past 12 months, the food you bought just didn't last and you didn't have money to get more.Never true06/29/2025Sex and Gender InformationValueDate RecordedSex Assigned at AjcncFnyk97/28/2025 7:15 AM EDTLegal AsaQwzz2502/07/2022 10:15 PM EDTGender QtqxphveTqth2025 7:15 AM EDTSexual Orientation Heterosexual or Hklybyeg54/28/2025 7:15 AM EDTdocumented as of this encounter Last Filed Vital Signs Vital SignReadingTime TakenCommentsBlood Qmzjrfab148/7007/05/2025 2:07 PM EST Ktsxz373607/05/2025 2:07 PM ESTTemperature--Respiratory Dpwx346409/04/2024 2:07 PM ESTOxygen Llrtzclzlr94%07/05/2025 2:07 PM ESTInhaled Oxygen Concentration-- Diexws23.9 kg (152 lb)07/05/2025 2:07 PM AGMZtsunf615.3 cm (5' 9 )07/05/2025 2:07 PM ESTBody Mass Index22.45109/04/2024 2:07 PM ESTdocumented in this encounter Progress Notes * Nadia Sheppard PA-C - 07/05/2025 2:15 PM EST Images from the original note were not included. DIVISION OF VASCULAR SURGERY HPI You Garcia is a 70 y.o. male who presents today for follow-up for groin check and for hospital follow-up after being admitted for lower GI bleed. He is status post RLE endarterectomy and femoropopliteal bypass which was done on 06/07/2025. Patient's wound dehisced and he remained was subsequently admitted for IV antibiotics from 06/15 to 06/19. Patient was not noted to have significant infection however given the dehiscence and drainage from the site he was continued on IV antibiotics to protect underlying graft. He was discharged on Bactrim for prophylaxis which he finished 06/27/25. He jace triple therapy and unfortunately developed GI bleeding and was admitted to [facility] from 06/28 through 07/01 for this- xarelto and aspirin were held but plavix remained due to high risk of occlusion this close to sx. He was noted to have diverticula and a polyp. Polyp was not removed due to antiplatelets/anticoagulation. He is doing better since discharge from the hospital. He denies any ongoing GI bleeding since discharge- no bright red or bloody stools. He was cleared to restart xarelto by GI and has been compliant. His leg incision is now fully healed and right groin incision is improving. Patient denies any foul odor, purulent drainage, increase in pain in the wound. Denies any fevers, chills, nausea, vomiting. Patient also had severe claudication to the left leg and was originally scheduled for endarterectomy possible bypass on the left on 07/05. Given the significant difficulty with recovery from the surgery he rescheduled for August. He does have significant short distance claudication however denies any lower extremity wounds or rest pain other than his baseline neuropathy.. Review of Systems Constitutional: Negative for chills, decreased appetite, diaphoresis, fever, malaise/fatigue, nightsweats, weight gain and weight loss. HENT: Negative for congestion, ear discharge, ear pain, hearing loss, hoarse voice, nosebleeds, odynophagia, sore throat, stridor and tinnitus. Eyes: Negative for blurred vision, discharge, double vision, pain, photophobia, redness, vision loss in left eye, vision loss in right eye, visual disturbance and visual halos. Cardiovascular: Negative for chest pain, claudication, cyanosis, dyspnea on exertion, irregular heartbeat, leg swelling, near-syncope, orthopnea, palpitations, paroxysmal nocturnal dyspnea and syncope. Respiratory: Negative for cough, hemoptysis, shortness of breath, sleep disturbances due to breathing, snoring, sputum production and wheezing. Endocrine: Negative for cold intolerance, heat intolerance, polydipsia, polyphagia and polyuria. Hematologic/Lymphatic: Negative for adenopathy and bleeding problem. Bruises/bleeds easily. Skin: Positive for color change. Negative for dry skin, flushing, itching, nail changes, poor woundhealing, rash, skin cancer, suspicious lesions and unusual hair distribution. Musculoskeletal: Negative for arthritis, back pain, falls, gout, joint pain, joint swelling, musclecramps, muscle weakness, myalgias, neck pain and stiffness. Gastrointestinal: Negative for bloating, abdominal pain, anorexia, change in bowel habit, bowel incontinence, constipation, diarrhea, dysphagia, excessive appetite, flatus, heartburn, hematemesis, hematochezia, hemorrhoids, jaundice, melena, nausea and vomiting. Genitourinary: Negative for bladder incontinence, decreased libido, dysuria, flank pain, frequency,genital sores, hematuria, hesitancy, incomplete emptying, menorrhagia, missed menses, nocturia, non-menstrual bleeding, pelvic pain and urgency. Neurological: Positive for light-headedness and loss of balance. Negative for aphonia, brief paralysis, difficulty with concentration, disturbances in coordination, excessive daytime sleepiness, dizziness, focal weakness, headaches, numbness, paresthesias, seizures, sensory change, tremors, vertigoand weakness. Psychiatric/Behavioral: Negative for altered mental status, depression, hallucinations, hypervigilance, memory loss, substance abuse, suicidal ideas and thoughts of violence. The patient does not have insomnia and is not nervous/anxious. Allergic/Immunologic: Negative for environmental allergies, HIV exposure, hives and persistent infections. Past Medical History: Medical History[1] Objective Visit Vitals Smoking Status Former Vascular Physical Exam Vitals reviewed. Constitutional: General: He is awake. Appearance: Normal appearance. He is well-developed. He is not ill-appearing or toxic-appearing. HENT: Head: Normocephalic and atraumatic. Nose: Nose normal. Mouth/Throat: Mouth: Mucous membranes are moist. Eyes: General: No scleral icterus. Cardiovascular: Rate and Rhythm: Normal rate. Pulses: Dorsalis pedis pulses are 2+ on the right side and non-palpable on the left side. Posterior tibial pulses are 2+ on the right side and non-palpable on the left side. Pulmonary: Effort: Pulmonary effort is normal. Musculoskeletal: Neck: Neck supple. Feet: Right foot: Skin integrity: No ulcer. Left foot: Skin integrity: No ulcer. Skin: General: Skin is warm and dry. Right Leg: Skin is warm, dry and intact. Left Leg: Skin is warm, dry and intact. Comments: Right groin incision with minimal to no swelling. There is a small area of wound dehiscence about 0.4 x0.3 x0.1. Tissue with subcutaneous fatty tissue and granulation. The medial thigh incision is healing well healed. Neurological: Mental Status: He is alert and oriented to person, place, and time. Psychiatric: Attention and Perception: Attention normal. Mood and Affect: Mood and affect normal. Behavior: Behavior normal. Assessment and Plan: Diagnoses and all orders for this visit: Postoperative wound dehiscence, subsequent encounter PAOD (peripheral arterial occlusive disease) Completed antibiotic prophylaxis after dehiscence. NO need for further antibiotics GDMT: triple therapy Xarelto, asa, plavix, statin. Monitor for recurrent signs of bleeding- had been cleared by GI to continue regimen Patient has good palpable pulses in the right foot. Patient had postoperative bypass ultrasound on 06/09 which was patent. Plan for repeat scan in a 6 months or if symptoms change Discussed lifting restrictions-no pulling twisting pushing greater than 5 pounds. Contnue topical therapy to Right groin- Vashe soak for 5 minutes, pack wound with Mesalt, cover with island dressing. Change daily Scheduled for left leg in August. They have follow up with GI in July- discussed at minimum would require 3 months ac/apt therapy without interruptions before holding for any invasive surgeries.He will discuss with them the level of urgency for the polypectomy. If more urgent and he continuesto have no tissue loss or rest pain, he may postone left leg to get this done We will see him in 2 weeks for incision check. Call with any concerns Electronically signed by: Nadia Sheppard PA-C Physician Videogame Tester Vascular and Wound Surgery 07/05/2025 This note was created with the assistance of a speech-recognition program. While intending to generate a document that accurately reflects the content of the encounter, no guarantee can be provided that every mistake has been identified and corrected by editing [1] Past Medical History: Diagnosis Date Anxiety Atherosclerosis of arteries of extremities Cancer (CMS/HCC) LUNG Chronic kidney disease, stage 4 (severe) (CMS/HCC) Coronary artery disease Depression Dyspnea on exertion Emphysema lung (CMS/HCC) Frequent falls GERD (gastroesophageal reflux disease) Hyperlipidemia Hypertension Intermittent claudication MCI (mild cognitive impairment) Migraine Mitral regurgitation PAD (peripheral artery disease) Peripheral arterial occlusive disease Pulmonary hyperinflation Sleep apnea documented in this encounter Plan of Treatment DateTypeDepartmentCare Team (Latest Contact Info)Solwmkeagbu77/08/2025 1:[address] [facility] Vascular and Endovascular Surgery [address] [facility] [address] Nadia Sheppard PA-C [address] [facility], [address] [place] [address] 07/22/2025 9:30 AM [address] [facility] Heart at [facility] [address] [place] [address] Sarah Tolliver MD [address] [facility] [address] [facility] [place] [address] 07/29/2025 2:30 PM ESTFollow-Up [facility] Medical Pav[facility] Gastroenterology [address] [place] [phone] Ebony Estevez, REQUIREMENTS ENGINEER [address] [facility] [place], [place] [id number] 08/23/2025 7:30 AM ESTHospital Encounter [facility] Main Operating Room [address] [place] [address] Chris Andre MD [address] [facility] [place] [address] 08/23/2025 7:30 AM EST - 08/23/2025 11:00 AM ESTSurgery [facility] Main Operating Room [address] [facility] [place] [address] Chris Andre MD [address] [facility] [place] [address] ENDARTERECTOMY, FEMORAL WITH POSSIBLE FEM TO POP IDSVBX4109/21/2025 11:00 AM EST Follow-Up [facility] at [facility] Nephrology [address] [place] [address] Batsheva Beckwith MD [address] [facility] [place] 2 [facility] [place] [address] NamePriorityAssociated DiagnosesDate/TimeENDARTERECTOMY, FEMORAL Peripheral arterial occlusive disease Encounter for pre-operative examination 08/23/2025 7:30 AM ESTdocumented as of this encounter Goals GoalPatient Goal TypeAssociated ProblemsRecent ProgressPatient-Stated?Author Blood Pressure < 140/90 Blood Fxuqicsp496/78(07/06/2025 12:48 PM EST)Cy Child, RNdocumented as of this encounter Visit Diagnoses Diagnosis Encounter for pre-operative examination- Primary Peripheral arterial occlusive disease Unspecified peripheral vascular disease Postoperative wound dehiscence, subsequent encounter- Primary PAOD (peripheral arterial occlusive disease) Unspecified peripheral vascular disease Peripheral arterial occlusive disease Unspecified peripheral vascular disease Encounter for pre-operative examination documented in this encounter Care Teams Team MemberRelationshipSpecialtyStart DateEnd Date Susan Watson MD [address] [place] [address] PCP - GeneralNurse Practitioner10/13/24documented as of this encounter
--- OUTSIDE RECORDS SUMMARY | 2025-07-05 14:35 | XMS_ITS | Encounter Summary ---
Author Organization [facility] Address [address] [place] [address] Care Team Providers Care Salvage Supervisor Name Role Phone Susan Watson MD Primary Care Provider [phone] Encounter Details DateTypeDepartmentCare Team (Latest Contact Info)Paftrwiwkrz80/24/2025 2:35 PM ESTLab [facility] Outpatient Draw Station [address] [place] [phone] Lower GI bleed Social History Tobacco UseTypesPacks/DayYears UsedDateSmoking Tobacco: FormerCigarettes Smokeless Tobacco: CurrentChewAlcohol UseStandard Drinks/WeekCommentsNot Currently0 (1 standard drink = 0.6 oz pure alcohol)PHQ-2AnswerDate Recorded Patient Health Questionnaire-2 Oaqpu23708/14/2024Humiliation, Afraid, Rape, and Kick questionnaireAnswerDate RecordedWithin the [...] times a week06/15/2025How often do you attend latter-day or taoist services?Never06/15/2025Do you belong to any clubs or organizations such as latter-day groups, unions, fraternal or athletic groups, or school groups?No06/15/2025How often do you attend meetings of the clubs or organizations you belong to?Never06/15/2025re you , , , , never , or living with a partner?Exynubvkv71/04/2025UDIT-C AnswerDate RecordedQ1: How often do you have [...] medical care, and heating?Not hard at all06/29/2025 [place] of Occupational Health - Occupational Stress Questionnaire AnswerDate RecordedDo you feel stress - tense, restless, nervous, or anxious, or unable to sleep at night because yourmind is troubled all the time - these days? Only a xhywzr4606/15/2025HC UtilitiesAnswerDate RecordedIn the past 12 months has the [employer], gas, oil, or water company threatened to [...] homeless or living in a longterm (including now)?No06/29/2025Hunger Vital SignAnswerDate Recorded Within the past 12 months, you worried that your food would run out before you got the money to buymore.Never true06/29/2025Within the past 12 months, the food you bought just didn't last and you didn't have money to get more.Never true 06/29/2025Sex and Gender InformationValueDate RecordedSex Assigned at BirthMale 04/08/2025 7:15 AM EDTLegal FzqTfqo7002/07/2022 10:15 PM EDTGender IdentityMale 04/08/2025 7:15 AM EDTSexual OrientationHeterosexual or Gypdaxgn66/28/2025 7:15 AM EDTdocumented as of this encounter Plan of Treatment DateTypeDepartmentCare Team (Latest Contact Info)Epmhltgjfpu43/08/2025 1:45 PM ESTFollow-Up [facility] Heart and Vascular Center Vascular and Endovascular Surgery [address] [place] [address] Nadia Sheppard PA-C [address] [facility], [address] [place] [phone] 07/22/2025 9:30 AM ESTFollow-Up [facility] Heart at [facility] [address] [place] [address] Sarah Tolliver MD [address] [facility] [address] [facility] [place] [address] 07/29/2025 2:30 PM ESTFollow-Up [facility] Medical Pavilion Gastroenterology [address] [facility] [place] [phone] Enix, Ebony, TUBE DISPATCHER [address] [facility] [place], [place] [phone] 08/23/2025 7:30 AM ESTHospital Encounter [facility] Main Operating Room [address] [place] [address] Chris Andre MD [address] [facility] [place] [address] 08/23/2025 7:30 AM EST - 08/23/2025 11:00 AM ESTSurgery [facility] Main Operating Room [address] [place] [address] Chris Andre MD [address] [facility] [place] [address] ENDARTERECTOMY, FEMORAL WITH POSSIBLE FEM TO POP PIRGMU9309/21/2025 11:00 AM EST Follow-Up [facility] at [facility] Nephrology [address] [place] [address] Batsheva Beckwith MD [address] [facility] 2 [facility] [place] [address] NamePriorityAssociated DiagnosesDate/TimeENDARTERECTOMY, FEMORAL Peripheral arterial occlusive disease Encounter for pre-operative examination 08/23/2025 7:30 AM ESTdocumented as of this encounter Goals GoalPatient Goal TypeAssociated ProblemsRecent ProgressPatient-Stated?Author Blood Pressure < 140/90 Blood Ikyztwdc522/78(07/06/2025 12:48 PM EST)Cy Child, RNdocumented as of this encounter Procedures Procedure NamePriorityDate/TimeAssociated EzmobysheXxuwkijeTYKFokhfdb36/24/2025 1:47 PM EST Lower GI bleed BASIC METABOLIC SZOJTDagixqv84/24/2025 1:47 PM EST Lower GI bleed documented in this encounter Results * (ABNORMAL) CBC (07/05/2025 1:47 PM EST)ComponentValueRef RangeTest Method Analysis TimePerformed AtPathologist SignatureAuto WBC4.414.00 - 10.60 10*3/uL 07/05/2025 2:05 PM [facility] ([facility])RBC3.46(L)4.20 - 5.70 10*6/uL 07/05/2025 2:05 PM [facility] ([facility])Opcrbscsfm92.1(L)13.0 - 17.0 g/dL07/05/2025 2:05 PM [facility] ([facility])Ncsfsfepgj24.3(L)39.0 - 50.0 %07/05/2025 2:05 PM [facility] ([facility])MCV93.482.0 - 98.0 fL 07/05/2025 2:05 PM [facility] ([facility])MCH29.227.0 - 33.0 pg 07/05/2025 2:05 PM [facility] ([facility])MCHC31.3(L)32.0 - 35.0 g/dL 07/05/2025 2:05 PM [facility] ([facility])RDW15.1(H)11.5 - 15.0 % 07/05/2025 2:05 PM [facility] ([facility])Tyucsxggl777(L)150 - 400 10*3/uL07/05/2025 2:05 PM [facility] ([facility])Specimen (Source) Anatomical Location / LateralityCollection Method / VolumeCollection Time Received TimeBloodVenous blood specimen / UnknownVenipuncture / Unknown 07/05/2025 1:47 PM EST07/05/2025 1:54 PM EST Narrative Authorizing ProviderResult TypeResult StatusSukumaru Sammy Newsome MDLAB BLOOD ORDERABLESFinal ResultPerforming OrganizationAddressCity/State/ZIP CodePhone Number [facility] ([facility]) [address] [place] [address] * (ABNORMAL) Basic metabolic panel (07/05/2025 1:47 PM EST)ComponentValueRef RangeTest MethodAnalysis TimePerformed AtPathologist XbsgvcjteXvfpdm540011 - 145 mmol/L109/04/2024 2:18 PM [facility] ([facility])Potassium4.83.5 - 5.1 mmol/L109/04/2024 2:18 PM [facility] ([facility])Mgnlbitm419(H)98 - 107 mmol/L109/04/2024 2:18 PM [facility] ([facility])PE31767 - 31 mmol/L 07/05/2025 2:18 PM [facility] ([facility])OAB656 - 25 mg/dL07/05/2025 2:18 PM [facility] ([facility])Creatinine1.45(H)0.70 - 1.30 mg/dL 07/05/2025 2:18 PM [facility] ([facility])Wuvfuia6498 - 100 mg/dL 07/05/2025 2:18 PM [facility] ([facility])Calcium8.68.6 - 10.3 mg/dL 07/05/2025 2:18 PM [facility] ([facility])Anion Gap97 - 20 mmol/L 07/05/2025 2:18 PM [facility] ([facility])eGFR51.2(L)>60.0 mL/min/1.73m* 2:18 PM [facility] ([facility])Comment:[facility]???s estimated glomerular filtration rate (eGFR) [...] one group of individuals.BUN/Creatinine Ratio15. 2:18 PM [facility] ([facility])Specimen (Source)Anatomical Location / LateralityCollection Method / VolumeCollection TimeReceived TimeBloodVenous blood specimen / Unknown Venipuncture / Qvrqfvc8707/05/2025 1:47 PM EST07/05/2025 1:53 PM EST Narrative Authorizing ProviderResult TypeResult StatusFrench Newsome MDLAB BLOOD ORDERABLESFinal ResultPerforming OrganizationAddressCity/State/ZIP CodePhone Number [facility] ([facility]) [address] [place] [address] documented in this encounter Visit Diagnoses Diagnosis Encounter for pre-operative examination- Primary Peripheral arterial occlusive disease Unspecified peripheral vascular disease Lower GI bleed Unspecified, hemorrhage of gastrointestinal tract Peripheral arterial occlusive disease Unspecified peripheral vascular disease Encounter for pre-operative examination documented in this encounter Care Teams Team MemberRelationshipSpecialtyStart DateEnd Date Susan Watson MD [address] [place] [address] PCP - GeneralNurse Practitioner10/13/24documented as of this encounter
--- OUTSIDE RECORDS SUMMARY | 2025-07-06 13:00 | XMS_ITS | Encounter Summary ---
Author Organization [facility] Address [address] [place] [address] Care Team Providers Care Stripping Cutter And Winder Name Role Phone Susan Watson MD Primary Care Provider [phone] Reason for Visit * ReasonCommentsFollow-up1 Month Follow Up Encounter Details DateTypeDepartmentCare Team (Latest Contact Info)Grrpgyyiupp73/25/2025 1:00 PM ESTFollow-Up [facility] Nephrology [address] [place] [phone] Batsheva Beckwith MD [address] [facility] 2 [facility] [place] [address] Chronic kidney disease, stage 3b [...] oz pure alcohol)PHQ-2AnswerDate Recorded Patient Health Questionnaire-2 Qjnfh50608/14/2024Humiliation, Afraid, Rape, and Kick questionnaireAnswerDate RecordedWithin the [...] times a week06/15/2025How often do you attend hoahaoism or taoist services?Never06/15/2025Do you belong to any clubs or organizations such as hoahaoism groups, unions, fraNutricate or athletic groups, or school groups?No06/15/2025How often do you attend meetings of the clubs or organizations you belong to?Never06/15/2025re you , , , , never , or living with a partner?Drcnoveij44/04/2025UDIT-C AnswerDate RecordedQ1: How often do you have [...] medical care, and heating?Not hard at all06/29/2025 [employer] - Occupational Stress Questionnaire AnswerDate RecordedDo you feel stress - tense, restless, nervous, or anxious, or unable to sleep at night because yourmind is troubled all the time - these days? Only a deqwgq8106/15/2025HC UtilitiesAnswerDate RecordedIn the past 12 months has [...] were you homeless or living in a assisted (including now)?No06/29/2025Hunger Vital SignAnswerDate Recorded Within the past 12 months, you worried that your food would run out before you got the money to buymore.Never true06/29/2025Within the past 12 months, the food you bought just didn't last and you didn't have money to get more.Never true 06/29/2025Sex and Gender InformationValueDate RecordedSex Assigned at BirthMale 04/08/2025 7:15 AM EDTLegal CirSgwx5002/07/2022 10:15 PM EDTGender IdentityMale 04/08/2025 7:15 AM EDTSexual OrientationHeterosexual or Xrmrrzzt44/28/2025 7:15 AM EDTdocumented as of this encounter Last Filed Vital Signs Vital SignReadingTime TakenCommentsBlood Yimqbfuz302/7807/06/2025 12:48 PM EST Qhnnh687007/06/2025 12:48 PM ESTTemperature--Respiratory Rate--Oxygen Saturation 97%07/06/2025 12:48 PM ESTInhaled Oxygen Concentration--Pqibob50 kg (165 lb 4.8 oz)07/06/2025 12:48 PM RMNFhkssj931.3 cm (5' 9 )07/06/2025 12:48 PM ESTBody [...] His diet is high in potatoes / khmer fries. We discussed low potassium diet in [...] Anxiety, Atherosclerosis of arteries of extremities, Cancer ([facility]), Chronic kidney disease, stage 4 (severe) ([facility]), Coronary artery disease, Depression, Dyspnea on exertion, Emphysema lung ([facility]), Frequent falls, GERD (gastroesophageal reflux disease), Hyperli [...] DIAGNOSES: 1. Chronic kidney disease, stage 3b ([facility]) 2. Electrolyte imbalance 3. Anemia due to stage 3b chronic kidney disease ([facility]) 4. Essential hypertension 5. HFrEF (heart failure with reduced ejection fraction) ([facility]) 6. Peripheral arterial occlusive disease 7. Kidney disease, chronic, stage IV (GFR 15-29 ml/min) ([facility]) 8. Hyperkalemia PLAN & DISCUSSION He has [...] Faculty, Division of Nephrology, Department of Medicine [facility]. [1] Outpatient Encounter Medications [...] mouth in the morning and at bedtime. nxcpinupbgo-husirubsk-jbspgatw (Trelegy Ellipta) 100-62.5-25 mcg blister with device [...] Plan of Treatment DateTypeDepartmentCare Team (Latest Contact Info)Avmwwcrpnin19/08/2025 1:45 PM ESTFollow-Up [facility] Vascular and Endovascular Surgery [address] [place] [phone] Nadia Sheppard PA-C [address], [address] [place] [phone] 07/22/2025 9:30 AM ESTFollow-Up [facility] [address] [place] [address] Sarah Tolliver MD [address] [facility] [address] [facility] [place] [address] 07/29/2025 2:30 PM ESTFollow-Up [facility] [address] [place] [phone] Ebony Estevez CNP [address] [place] [address] 08/23/2025 7:30 AM ESTHospital Encounter [facility] Main Operating Room [address] [place] [address] Chris Andre MD [address] [place] [phone] 08/23/2025 7:30 AM EST - 08/23/2025 11:00 AM ESTSurgery [facility] Main Operating Room [address] [place] [address] Chris Andre MD [address] [place] [phone] ENDARTERECTOMY, FEMORAL WITH POSSIBLE FEM TO POP KZMBUK8509/21/2025 11:00 AM EST Follow-Up [facility] Nephrology [address] [place] [phone] Batsheva Beckwith MD [address] [facility] 2 [facility] [place] [address] NameTypePriorityAssociated DiagnosesOrder SchedulePTH, intactLabRoutine Chronic [...] ProblemsRecent ProgressPatient-Stated?Author Blood Pressure < 140/90 Blood Mildzrur495/78(07/06/2025 12:48 PM EST)Cy Child, RNdocumented as of this encounter Visit Diagnoses Diagnosis Encounter for pre-operative examination- Primary Peripheral arterial occlusive disease Unspecified peripheral vascular disease Chronic kidney disease, stage 3b ([facility])- Primary Electrolyte imbalance Electrolyte and fluid disorders not elsewhere classified Anemia due to stage 3b chronic kidney disease ([facility]) Essential hypertension Unspecified essential hypertension HFrEF (heart failure with reduced ejection fraction) ([facility]) Peripheral arterial occlusive disease Unspecified peripheral vascular disease Kidney disease, chronic, stage IV (GFR 15-29 ml/min) ([facility]) Hyperkalemia Hyperpotassemia Peripheral arterial occlusive disease Unspecified peripheral vascular disease Encounter for pre-operative examination documented in this encounter Care Teams Team MemberRelationshipSpecialtyStart DateEnd Date Susan Watson MD [address] [place] [address] PCP - GeneralNurse Practitioner10/13/24documented as of this encounter
--- OUTSIDE RECORDS SUMMARY | 2025-07-12 13:05 | XMS_ITS | Clinical Summary ---
Author Organization [facility] Address [address] [place] [address] Care Team Providers Care Electrophysiology Tech Name Role Phone Susan Watson MD Primary Care Provider [phone] Allergies No known active allergies Medications MedicationSigDispense QuantityRefillsLast FilledStart DateEnd DateStatus albuterol 90 mcg/actuation inhaler INHALE 1 PUFF BY MOUTH EVERY 4 HOURS GXFQFT8812/02/2021ctive aspirin 81 mg EC tablet Take 1 tablet by mouth in the morning.Active buPROPion XL (Wellbutrin XL) 300 mg 24 hr tablet Use 1 tablet in the mouth or throat in the morning.Active busPIRone (Buspar) 15 mg tablet Take 1 tablet by mouth in the morning and at bedtime.Active famotidine (Pepcid) 20 mg tablet Take 20 mg by mouth twice a day.5Active fenofibrate micronized (Antara) 43 mg capsule Take 1 capsule by mouth in the morning and at bedtime.Active sbypmaobkpb-clxgylxij-ligrcbqh (Trelegy Ellipta) 100-62.5-25 mcg blister with device Inhale 1 puff in the morning.02/18/2024ctive nitroglycerin (Nitrostat) 0.4 mg SL tablet 06/17/2024ctive sertraline (Zoloft) 100 mg tablet Take 2 tablets by mouth in the morning.Active traZODone (Desyrel) 100 mg tablet Take 1 tablet by mouth at bedtime.Active OLANZapine (ZyPREXA) 5 mg tablet Take 5 mg by mouth at bedtime.Active metoprolol tartrate (Lopressor) 50 mg tablet Take 50 mg by mouth two times daily.Active clopidogrel (Plavix) 75 mg tablet Take 75 mg by mouth in the morning.Active rivaroxaban (Xarelto) 2.5 mg tablet Indications:Peripheral arterial occlusive disease,Atherosclerosis of arteries of extremitiesTake 1 tablet (2.5 mg) by mouth two times daily for 197 doses. 90 tablet 2/6Active acetaminophen (Tylenol Extra Strength) 500 mg tablet Indications:Lower extremity pain, bilateralTake 2 tablets (1,000 mg) by mouth every 6 (six) hours if needed for moderate pain (4-7 pain score). 30 tablet /5Active atorvastatin (Lipitor) 80 mg tablet Take 80 mg by mouth at bedtime.Active sodium zirconium cyclosilicate (Lokelma) 10 gram packet Indications:Essential hypertension,Kidney disease, chronic, stage IV (GFR 15-29 ml/min) (CMS/HCC),HyperkalemiaTake 10 g by mouth 3 (three) times a week. 120 g 5Active amLODIPine (Norvasc) 5 mg tablet Take 1 tablet by mouth two times daily.07/06/2025Discontinued atorvastatin (Lipitor) 80 mg tablet Take 80 mg by mouth at bedtime.Discontinued(Stop Taking at Discharge) sodium zirconium cyclosilicate (Lokelma) 10 gram packet Indications:Kidney disease, chronic, stage IV (GFR 15-29 ml/min) (CMS/HCC), Essential hypertension,HyperkalemiaTake 10 g by mouth 3 (three) times a week. 120 g /Discontinued(Reorder) doxycycline (Vibramycin) 100 mg capsule Indications:Wound infection after surgeryTake 1 capsule (100 mg) by mouth two times daily for 14 doses. Take with at least 8 ounces (large glass) of water, do not lie down for 30 minutes after 14 capsule Discontinued(Stop Taking at Discharge) sulfamethoxazole-trimethoprim (Bactrim DS) 800-160 mg tablet Indications:Wound infection after surgeryTake 1 tablet by mouth every 12 (twelve) hours for 7 days. 14 tablet 11/Discontinued(Stop Taking at Discharge) famotidine (Pepcid) 20 mg tablet Take 20 mg by mouth two times daily.07/01/2025Discontinued(Stop Taking at Discharge) sodium bicarbonate 650 mg tablet Indications:Metabolic acidosisTake 1 tablet (650 mg) by mouth in the morning for 5 days. 5 tablet Discontinued sodium bicarbonate 650 mg tablet Indications:Metabolic acidosisTake 2 tablets (1,300 mg) by mouth two times daily for 2 days, THEN 1 tablet (650 mg) two times daily for 5 days. 18 tablet Discontinued Active Problems ProblemNoted DateDiagnosed DfttXqylpy42/18/2025hronic kidney disease, stage 3b 06/29/20255137Sqebqluojn53/18/2566Ubsjqwbnlosn86/18/2025Other nondisplaced fracture of upper end of left humerus, subsequent encounter for fracture with routine pjstofe3506/29/2025Sigmoid zntndqbxbvudds35/18/2025Ventral rgsuqv8106/29/2025 Overview (06/29/2025): Problem List clean-up per request of Phys. EHR Cmte Qcfqbxhn36/18/2025AD (coronary artery disease) of artery bypass graft06/29/2025 Hypertensive chronic kidney disease with stage 1 through stage 4 chronic kidney disease, or unspecified chronic kidney yfaagmb8306/29/2025losed fracture of greater tuberosity of left lraoldy9306/29/20255815Anuhpkastldh92/18/2025Rectal /18/2025 Assessment & Plan (06/30/2025 2:16 PM EST): - Likely is having an active diverticular bleed - Currently is hemodynamically stable - Received 2 units of packed RBCs and monitor hemoglobin closely - GI following, undergoing colonoscopy today - Holding Lexa, will await results of colonoscopy Assessment & Plan (06/29/2025 3:05 AM EST): Likely is having an active diverticular bleed Currently is hemodynamically stable Will transfuse 2 units of packed RBCs and monitor hemoglobin closely Keep n.p.o. GI consult Holding Xarelto Elevated LFTs06/29/2025 Assessment & Plan (06/30/2025 2:16 PM EST): - monitor clinically Assessment & Plan (06/29/2025 3:05 AM EST): monitor clinically Chronic heart failure with mildly reduced ejection fraction (HFmrEF)06/29/2025 Assessment & Plan (06/30/2025 2:16 PM EST): - Difficult to determine NYHA class - EF 40-45% - currently is euvolemic Assessment & Plan (06/29/2025 3:11 AM EST): EF 40-45% currently is euvolemic Renal ncmwkq6206/29/2025 Assessment & Plan (06/30/2025 2:16 PM EST): - Outpatient MRI Assessment & Plan (06/29/2025 3:05 AM EST): Outpatient MRI S/P CABG (coronary artery bypass graft)06/29/2025 Assessment & Plan (06/30/2025 2:16 PM EST): - No active chest pain or shortness of breath, has nitro as needed - Previous home medication list shows he is on aspirin, Plavix, metoprolol, atorvastatin and fenofibrate - Plavix continued Assessment & Plan (06/29/2025 3:05 AM EST): No active chest pain or shortness of breath, has nitro as needed Previous home medication list shows he is on aspirin, Plavix, metoprolol, atorvastatin and fenofibrate Acjdmgfbmx36/04/2025Other specified symptoms and signs involving the circulatory and respiratory euautzk2606/14/2025S/P femoropopliteal bypass xllihgh3506/14/2025 Assessment & Plan (06/30/2025 2:16 PM EST): - was on dual antiplatelet therapy plus Xarelto - vascular surgery following and recommending to continue plavix at this time Assessment & Plan (06/29/2025 3:05 AM EST): was on dual antiplatelet therapy plus Xarelto Consult vascular surgery for input regarding anticoagulation Encounter for pre-operative xfgxtqumeef61/28/2025Peripheral arterial occlusive zzcwhyd0306/07/2025Reduced ejection fraction concurrent with and due to acute heart silodcl1304/29/20255854Bstziducibrf41/12/2025 Assessment & Plan (06/07/2025 2:40 PM EDT): Relevant Hx: Can walk only 10 steps prior to stopping due to pain Course: Previous stenting of the right SFA, continues to be symptomatic Today's Plan: OR today for right fem-pop bypass with graft, 2g Ancef given for surgical prophylaxis Lower extremity pain, fifynftnx27/31/2025 Assessment & Plan (06/07/2025 2:40 PM EDT): Plan same as below Chronic diastolic heart otqzhub6503/01/2025Pulmonary pffacosjfnjb46/21/2025 Cervical qdzpfivblnh15/10/2025Neck pain11/19/2024Frequent falls06/17/2024 Functional gait aoaxqdpefyy48/06/2024hronic obstructive pulmonary disease, pprteucafnv50/31/2024 Assessment & Plan (06/30/2025 2:16 PM EST): - respiratory status is stable, albuterol as needed and continue Trelegy Ellipta Assessment & Plan (06/29/2025 3:05 AM EST): respiratory status is stable, albuterol as needed and continue Trelegy Ellipta Chronic kidney disease, stage 4 (severe)09/19/2023 Assessment & Plan (06/30/2025 2:16 PM EST): - renal function at baseline - Monitor with daily BMP Assessment & Plan (06/29/2025 3:05 AM EST): renal function at baseline Closed nondisplaced fracture of greater tuberosity of left humerus with routine wodheuz0909/19/2023GAD (generalized anxiety disorder)09/19/2023H/O: lung cancer 09/19/2023Traumatic complete tear of left rotator cuff09/19/2023oronary artery disease involving [place] coronary artery of [place] heart without angina pectoris 09/19/2023 Assessment & Plan (06/30/2025 2:16 PM EST): - No active chest pain or shortness of breath, has nitro as needed - Previous home medication list shows he is on aspirin, Plavix, metoprolol, atorvastatin and fenofibrate - Plavix continued Assessment & Plan (06/29/2025 3:05 AM EST): No active chest pain or shortness of breath, has nitro as needed Previous home medication list shows he is on aspirin, Plavix, metoprolol, atorvastatin and fenofibrate MCI (mild cognitive impairment)2Recurrent major depression in partial wjquweacu88/01/2022Recurrent major depressive disorder, in full remission 04/12/2022Hypertensive ammwspvw10/17/2014 Assessment & Plan (06/30/2025 2:16 PM EST): - continue amlodipine, metoprolol - Blood pressure within acceptable range on 06/30 Assessment & Plan (06/29/2025 3:05 AM EST): continue amlodipine, metoprolol Abnormal results of cardiovascular function btfiewe5309/30/2013 Overview (10/13/2024): MILD INFERIOR AND ANTERIOR ISCHEMIA EF 52% Chest pain09/18/2013Dyspnea and respiratory aeztxhoqrknei61/07/2014 Overview (10/13/2024): 66 pk/yr history of smoking. Quit in 1994, when diagnosed with NSCLC and treated with RULobectomy and XRT. Also has extensive coronary disease, with CABG. Sees cardiology at [place]. Anxiety, HTN, CKD IIIb. PCP started albuterol for SOB, which did not help. Then Breo elipta, then advair, none of which hasworked. Now on Breo and Advair and albuterol. [...] without BD response. Atherosclerosis of arteries of uwdabjutxnl29/14/2013Intermittent claudication 08/25/2012Peripheral vascular ermeymv0908/25/2012 Assessment & Plan (06/30/2025 2:16 PM EST): - was on dual antiplatelet therapy plus Xarelto - vascular surgery following and recommending to continue plavix at this time Assessment & Plan (06/29/2025 3:05 AM EST): was on dual antiplatelet therapy plus Xarelto Consult vascular surgery for input regarding anticoagulation Gastroesophageal reflux disease without yluhdgpwhvg90/07/1689Ngdftvqz50/07/2012 Mixed bwuhoocxdphzzx59/07/2012 Assessment & Plan (06/30/2025 2:16 PM EST): - continue atorvastatin and fenofibrate Assessment & Plan (06/29/2025 3:05 AM EST): continue atorvastatin and fenofibrate Coronary fzcyjwipenxcizl95/07/2012Primary orjvlkvrqdpl20/07/2012 Resolved Problems ProblemNoted DateDiagnosed DateResolved DateEncounter for pre-operative azoisiticdu61 Encounters DateTypeDepartmentCare LeojRhhdbxjlaqo61/25/2025 1:00 PM ESTFollow-Up [facility] [address] [address] Batsheva Beckwith MD Chronic kidney disease, stage 3b ([facility]/HCC) (Primary Dx); Electrolyte imbalance; Anemia due to stage 3b chronic kidney disease ([facility]/HCC); Essential hypertension; HFrEF (heart failure with reduced ejection fraction) ([facility]); Peripheral arterial occlusive disease; Kidney disease, chronic, stage IV (GFR 15-29 ml/min) ([facility]); Bbkydicbnlrg97/24/2025 2:35 PM ESTLab [facility] Outpatient Draw Station [address] [place] [phone] Lower GI bleed07/05/2025 2:15 PM ESTFollow-Up [facility] Vascular and Endovascular Surgery [address] [place] [address] Nadia Sheppard PA-C Postoperative wound dehiscence, subsequent encounter (Primary Dx); PAOD (peripheral arterial occlusive disease)07/02/2025Telephone [facility] [address] [place] [phone] Brianne Morales, RN Hospital Follow-up07/02/2025Telephone [facility] Heart at [address] [address] Elza Butt MA 07/01/2025 1:44 PM ESTAnesthesia Event [facility] Invasive Surgery [facility] [address] [place] [address] Melody Cortes MD Kwak, Eun Seo, MD 07/01/20254889Heolez59/19/2025 2:08 PM ESTAnesthesia Event [facility] Surgery [facility] [address] [place] [address] Melody Cortes MD Stimes, Nicholas, MD 06/30/20257306Jfmynw85/17/2025 5:59 PM EST - 07/01/2025 6:53 PM ESTHospital Encounter [facility] [address] [place] [address] Cleopatra Curiel MD Horani, Omar, MD Chang, Kyu Chul, MD Lower GI bleed (Primary Dx); Diverticular hemorrhage; Metabolic acidosis Discharge Disposition: Home or Self Care ()06/28/20257342Jmrbjk82/17/2025Orders Only [facility] Infectious Disease [address], [address] [place] [address] Carolyn Romo MA 06/28/2025Results Follow-Up [facility] [address], [address] [place] [address] Carolyn Romo MA Basic metabolic panel, Magnesium, Phosphorus, CBC06/26/2025 1:20 PM EST - 06/26/2025 8:38 PM ESTEmergency [facility] Emergency [address] [place] [address] Brayan Gutierrez MD Dislocation of finger, initial encounter (Primary Dx); Peripheral arterial disease; Fall, initial encounter Discharge Disposition: Home or Self Care ()06/26/20250610Juuxns46/14/2025 3:05 PM ESTLab [facility] Outpatient Draw Station [address] [place] [address] Chronic kidney disease, unspecified CKD stage; Peripheral arterial occlusive disease; Encounter for pre-operative tpxbjsyhfkp27/14/2025 2:00 PM ESTFollow-Up [facility] Vascular and Endovascular Surgery [address] [place] [address] Nadia Sheppard PA-C Postoperative wound dehiscence, subsequent encounter (Primary Dx); PAOD (peripheral arterial occlusive disease); Dehiscence of operative wound, subsequent lpouuthmv43/10/2025Orders Only [facility] Pre-Anesthesia Clinic [address] [facility] [place] [phone] Chasity Bryant RN 06/15/2025 6:56 PM EST - 06/19/2025 6:55 PM ESTHospital Encounter [facility] 4CD [address] [place] [address] Damaris Gee PA-C Nazzal, Munier, MD Cellulitis (Primary Dx); Wound infection after surgery Discharge Disposition: Home or Self Care ()06/15/20256054Etbphi28/03/2025 2:00 PM ESTFollow-Up [facility] Vascular and Endovascular Surgery [address] [place] [address] Mala Cooper NP Other specified symptoms and signs involving the circulatory and respiratory systems (Primary Dx); Claudication; S/P femoropopliteal bypass epvozkx7406/12/2025 1:37 AM EDT - 06/12/2025 2:29 AM EDTEmergency [facility] Emergency [address] [place] [address] Karan Fuller MD Encounter for postoperative wound check (Primary Dx) Discharge Disposition: Home or Self Care ()06/12/20252882Oiffxl28/28/2025Orders Only [facility] Vascular and Endovascular Surgery [address] [place] [address] Jessica Fatima MA Peripheral arterial occlusive disease (Primary Dx); Encounter for pre-operative bzrikyhbaab2025Orders Only [facility] [address] [facility] [place] [address] Carolyn Romo MA 06/07/2025 2:51 PM EDTAnesthesia Event [facility] Main Operating Room [address] [place] [address] Trang Chen MD Meisler, Adam, MD 06/07/2025 11:00 AM EDT - 06/07/2025 2:00 PM EDTSurgery [facility] Main Operating Room [address] [place] [address] Chris Andre MD Right Femoral- Popliteal Bypass with 8mm Propaten Graft above the knee [71780 (CPT??)]06/07/2025 9:26 AM EDT - 06/09/2025 7:30 PM EDTHospital Encounter [facility] 4AB Urology [address] [place] [address] Chris Andre MD Peripheral arterial occlusive disease (Primary Dx); Lower extremity pain, bilateral; Severe claudication; Encounter for pre-operative examination; Lower limb ischemia; Atherosclerosis of arteries of extremities Discharge Disposition: Home or Self Care (01)06/07/20252427Oxhibt33/24/2025Telephone [facility] at [address] [phone] Batsheva Beckwith MD 06/02/2025Results Follow-Up [facility] [address] [address] Carolyn Romo MA Basic metabolic panel05/31/2025 11:55 AM EDTLab [facility] Outpatient Draw Station [address] [place] [address] Ymjesxdqsmrk31/16/2025Results Follow-Up [facility] [address] [address] Batsheva Beckwith MD Urinalysis with microscopic, Microalbumin, urine, random, Creatinine, urine, random, Additional followed-up results: 2:55 PM EDTLab [facility] Outpatient Draw Station [address] [place] [address] Kidney disease, chronic, stage IV (GFR 15-29 ml/min) (CMS/HCC); Essential hypertension; Cspvqhhloxnp65/15/2025 1:00 PM EDTOffice Visit [facility] [address] [address] Batsheva Beckwith MD Kidney disease, chronic, stage IV (GFR 15-29 ml/min) (CMS/HCC) (Primary Dx); Essential hypertension; Hyperkalemia; HFrEF (heart failure with reduced ejection fraction) (CMS/HCC); Peripheral arterial mlxcyks7705/25/2025Telephone [facility] Pre-Anesthesia Clinic [address] [place] [address] [place] [address] Christopher Gongora CNP 05/24/2025 2:35 PM EDTLab [facility] Medical Pavilion Draw Station [address] [place] [address] [place] [phone] Lower extremity pain, bilateral; Severe claudication; Encounter for pre-operative whkwplonbpd15/13/2025 1:30 PM EDTPre-Admission Testing [facility] Pre-Anesthesia Clinic [address] [place] [address] [place] [phone] 05/24/20251678Dzlana41/06/2025Telephone [facility]phrology [address] [address] [place] [address] Batsheva Beckwith MD 05/14/2025bstract [facility] AUTHORIZATION DEPARTMENT [address] [place] [address] Chris Andre MD 05/11/2025 10:30 AM EDT - 05/11/2025 11:30 AM EDTSurgery [facility] Heart and Vascular Center Vascular Lab [address] [place] [address] Sarah Tolliver MD Coronary tpzwmdhgaij19/30/2025 7:13 AM EDT - 05/11/2025 6:03 PM EDTHospital Encounter [facility] V[facility] [address] [place] [address] Sarah Tolliver MD Reduced ejection fraction concurrent with and due to acute heart failure (CMS/HCC) Discharge Disposition: Home or Self Care ()05/11/20257016Nbggof37/23/2025Travel 04/29/2025Telephone [place] [address] [place] [address] Elza Butt MA 04/29/2025Orders Only [facility] [address] [place] [address] Elza Butt MA Reduced ejection fraction concurrent with and due to acute heart failure (CMS/HCC) (Primary Dx)2025Orders Only [facility] [address] [place] [address] Elza Butt MA Kidney disease, chronic, stage IV (GFR 15-29 ml/min) (CMS/HCC) (Primary Dx) 2025Telephone [facility] [address] [place] [address] Elza Butt MA 04/27/2025Orders Only [facility] [address] [place] [address] Ele Iraheta MD 04/23/2025Orders Only [facility] Vascular and Endovascular Surgery [address] [place] [address] Jessica Fatima MA Severe claudication (Primary Dx); Encounter for pre-operative ezzjhcrqvun99/12/2025Orders Only [facility] Vascular and Endovascular Surgery [address] [place] [address] Jessica Fatima MA Severe claudication (Primary Dx); Lower extremity pain, bilateral; Encounter for pre-operative xxorvtlxbcx00/10/2025 3:15 PM EDTOffice Visit [facility] Vascular and Endovascular Surgery [address] [place] [address] Chris Andre MD Claudication (Primary Dx)04/21/2025Telephone [facility] [address] [place] [address] Melody Cheung MA 04/20/2025Orders Only [facility] [address] [place] [address] Elza Butt MA 04/19/2025Telephone [facility] [address] [place] [address] Kya Sheppard MA 04/15/2025 - 04/15/2025 11:59 PM EDTHospital Encounter [facility] Radiology External Films [address] [place] [address] Discharge Disposition: Home or Self Care (01)from Last 3 Months Immunizations ImmunizationAdministration DatesNext DueInfluenza, High Dose Seasonal, Preservative Free06/19/2025 Family History Medical HistoryRelationNameCommentsDiabetesMotherMarionRelationNameStatus CommentsMotherMarion Social History Tobacco UseTypesPacks/DayYears UsedDateSmoking Tobacco: FormerCigarettes [...] 06/29/2025Emotionally AbusedNot on file06/29/2025Physically AbusedNot on file 06/29/2025Sexually AbusedNot on file06/29/2025Social Connection and Isolation PanelAnswerDate RecordedIn a typical week, how many times do you talk on the phone with family, friends, or neighbors?More than three times a week06/15/2025 How often do you get together with friends or relatives?More than three times a week06/15/2025How often do you attend buddhist or cheondoism services?Never 06/15/2025Do you belong to any clubs or organizations such as buddhist groups, unions, fraternal or athletic groups, or school groups?No06/15/2025How often do you attend meetings of the clubs or organizations you belong to?Never06/15/2025 Are you , , , , never , or living with a partner?Vkjilndeh61/04/2025UDIT-CAnswerDate RecordedQ1: How often do you have a [...] housing, medical care, and heating?Not hard at all06/29/2025[facility] [place] [facility] [employer] - Occupational Stress QuestionnaireAnswerDate RecordedDo you feel stress - tense, restless, nervous, or anxious, or unable to sleep at night because yourmind is troubled all the time - these days?Only a jujuwg8906/15/2025HC UtilitiesAnswer Date RecordedIn the past 12 months has the [employer], gas, oil, or water [employer] threatened to shut off services in your [...] were you homeless or living in a alf (including now)?No06/29/2025 Hunger Vital SignAnswerDate RecordedWithin the past 12 months, you worried that your food would run out before you got the money to buymore.Never true06/29/2025 Within the past 12 months, the food you bought just didn't last and you didn't have money to get more.Never true06/29/2025Sex and Gender InformationValueDate RecordedSex Assigned at ZjysaNnvh19/28/2025 7:15 AM EDTLegal CsoNldq6102/07/2022 10:15 PM EDTGender MdfkyruzBaxo05/28/2025 7:15 AM EDTSexual Orientation Heterosexual or Sirbptoq22/28/2025 7:15 AM EDT Last Filed Vital Signs Vital SignReadingTime TakenCommentsBlood Yiuhmmcd201/7807/06/2025 12:48 PM EST Pbsbw758807/06/2025 12:48 PM KIRZxfbnxvvdvs39.9 ??C (96.6 ??F)07/01/2025 4:16 PM ESTRespiratory Lepc609309/04/2024 2:07 PM ESTOxygen Gamkmxojtn91%07/06/2025 12:48 PM ESTInhaled Oxygen Concentration--Mrccct56 kg (165 lb 4.8 oz)07/06/2025 12:48 PM FYQPdncsb309.3 cm (5' 9 )07/06/2025 12:48 PM ESTBody Mass Index24.41 07/06/2025 12:48 PM EST Plan of Treatment DateTypeDepartmentCare Team (Latest Contact Info)Ldzekwulree92/08/2025 1:45 PM ESTFollow-Up [facility] Vascular and Endovascular Surgery [address] [place] [address] Nadia Sheppard PA-C [address], [address] [place] [address] 07/22/2025 9:30 AM ESTFollow-Up [facility] Heart at [facility] [address] [place] [address] Sarah Tolliver MD [address] [facility] [address] [place] [address] 07/29/2025 2:30 PM ESTFollow-Up [facility] [address] [place] [phone] Ebony Estevez, MÓNICA [address] [place], [place] [id number] 08/23/2025 7:30 AM ESTHospital Encounter [facility] Main Operating Room [address] [place] [address] Chris Andre MD [address] [place] [address] 08/23/2025 7:30 AM EST - 08/23/2025 11:00 AM ESTSurgery [facility] Main Operating Room [address] [place] [phone] Chris Andre MD [address] [place] [phone] ENDARTERECTOMY, FEMORAL WITH POSSIBLE FEM TO POP KLBJOI1009/21/2025 11:00 AM EST Follow-Up [facility] Nephrology [address] [place] [address] Batsheva Beckwith MD [address] [facility] 2 [facility] [place] [address] NamePriorityAssociated DiagnosesDate/TimeENDARTERECTOMY, FEMORAL Peripheral arterial occlusive disease Encounter for pre-operative examination 08/23/2025 7:30 AM ESTHealth MaintenanceDue DateLast DoneCommentsCT Colonography 1953FIT-DNA1953FIT1953Medicare Annual Wellness (AWV)1955 Lvyadpfhhetcu1953dult Jlhhkbf8404/28/1975Zoster Vaccines (1 of 2)2003 COVID-19 Vaccine ( season), 11/08/2020, 10/19/2020epression Bpqwbuhlg14/10/20248465DQEK86Fall Risk Iqtbexsct94/4522Mvfcspsmdlj37, 06/30/2025, 1Colorectal Cancer Aaksirnyc11/20/2035Pneumococcal Vaccine: 50+ Years Vhvekwqbc02/23/2020, 08/27/2019Influenza VdfytvvBmpxgorta37/08/2025, 05/23/2021, 08/03/2020HIB VaccinesAged OutNo longer eligible based on patient's age to complete this topicHPV VaccinesAged OutNo longer eligible based on patient's age to complete this topicIPV VaccinesAged OutNo longer eligible based on patient's age to complete this topicMeningococcal B VaccineAged OutNo longer eligible based on patient's age to complete this topicMeningococcal VaccineAged OutNo longer eligible based on patient's age to complete this topicRotavirus Vaccines Aged OutNo longer eligible based on patient's age to complete this topic Goals GoalPatient Goal TypeAssociated ProblemsRecent ProgressPatient-Stated?Author Blood Pressure < 140/90 Blood Gqqlrihu402/78(07/06/2025 12:48 PM EST)Cy Child RN Medical Devices ImplantedTypeAreaManufacturerDevice IdentifierShelf Expiration DateModel / Serial / LotGraft,Thin-Wall,8x80cm,70cm - [id number] - [id number] Implanted:Qty: 1 on 06/07/2025 by Chris [facility]agen[facility]: Desirae [id number] / [id number] / N/A Procedures Procedure NamePriorityDate/TimeAssociated DoaefdapeFovolvunRZWSnxwvet12/24/2025 1:47 PM EST Lower GI bleed BASIC METABOLIC CZPWVUoebrfa22/24/2025 1:47 PM EST Lower GI bleed BASIC METABOLIC UUWVWPNOG83/20/2025 4:17 PM EST DIAGNOSTIC ERMISLHTLQVXtfhihb27/20/2025 2:36 PM EST BLOOD GAS, VENOUSPending Kmlznnwlx77/20/2025 11:28 AM EST POCT GLUCOSE METER UNSOLICITED WYACKVJSgvfmfl61/20/2025 9:23 AM EST HEMOGLOBIN AND HEMATOCRIT, BLOODPending Knjhbvmxa48/20/2025 6:51 AM EST BASIC METABOLIC PANELSTAT Add-on07/01/2025 6:00 AM EST LIGHT GREEN JIBBrxunre40/20/2025 6:00 AM EST EXTRA WBYIGTagknpj40/20/2025 6:00 AM EST POCT GLUCOSE METER UNSOLICITED YDNYMDPErzwrzb46/19/2025 8:10 PM EST POCT GLUCOSE METER UNSOLICITED DNASJDGIeojqxi26/19/2025 4:08 PM EST POCT GLUCOSE METER UNSOLICITED TYKYFZFAbwptqn39/19/2025 3:46 PM EST POCT GLUCOSE METER UNSOLICITED NHUUTIWNhdyesx64/19/2025 3:24 PM EST POCT GLUCOSE METER UNSOLICITED EPWZNVLLpmmeus30/19/2025 3:01 PM EST DIAGNOSTIC USIWGILOMNPSjlvqrn63/19/2025 2:25 PM EST POCT GLUCOSE METER UNSOLICITED GWTSBXWYiuquue75/19/2025 1:23 PM EST IRFOWLBOALQNUP38/18/2025 11:10 PM EST NQFOYIYWJZEXVU92/18/2025 5:47 PM EST HEMOGLOBIN AND HEMATOCRIT, MILXCHZNW82/18/2025 9:18 AM EST TRANSFUSE RED BLOOD KSFGVCshlzfp90/18/2025 5:50 AM ESTCBC WITH AUTO DIFFERENTIAL STAT108/29/2024 5:45 AM EST CBC AND WXBXMJZIUENVLymjgfu61/18/2025 5:45 AM EST COMPREHENSIVE METABOLIC YVKHXGxxlowb99/18/2025 5:45 AM EST TRANSFUSE RED BLOOD DOLUIFznmkag70/18/2025 3:00 AM ESTPREPARE RBCRoutine 06/29/2025 1:40 AM EST TYPE AND RSRTQJKOCG88/18/2025 12:33 AM EST HEMOGLOBIN AND HEMATOCRIT, EJQEIPKID22/18/2025 12:33 AM EST CTA ABDOMEN PELVIS W IV MONYQZZGCPHB39/17/2025 9:14 PM EST POCT OCCULT BLOOD OSIRAFRLW11/17/2025 7:15 PM EST CBC WITH AUTO ONQNOEYIWOHKUYBP31/17/2025 6:39 PM EST COMPREHENSIVE METABOLIC SVGZWCIOZ25/17/2025 6:39 PM EST CBC AND ZJVEEFIDBZQYGEUR93/17/2025 6:39 PM EST HIGH SENSITIVITY TROPONIN ISTAT108/26/2024 4:40 PM EST CTA AORTA AND BILATERAL ILIOFEMORAL RUNOFF W IV BUFECVBXOLKU20/15/2025 4:[address] CERVICAL SPINE WO IV UHJCFVJLVXGD89/15/2025 4:[address] HEAD WO IV IDZCRUWKJOKB43/15/2025 4:39 PM EST XR HAND 3+ VIEWS RRTXSBNX49/15/2025 3:45 PM EST CBC WITH AUTO HRYZEJWTLPJMLTRC64/15/2025 2:45 PM EST CK TOTAL AND CKMBSTAT Add-on06/26/2025 2:45 PM EST BRUJZRGT45/15/2025 2:45 PM EST PROTIME-ANBLJFW8006/26/2025 2:45 PM EST HIGH SENSITIVITY TROPONIN ISTAT108/26/2024 2:45 PM EST COMPREHENSIVE METABOLIC GJBTPKCCB71/15/2025 2:45 PM EST CBC AND DKSUNBOQVNQJSSTQ10/15/2025 2:45 PM EST XR CHEST 1 GZOJAOIA63/15/2025 2:20 PM EST XR PELVIS 1-2 EWQJEFJZE30/15/2025 2:20 PM EST XR HAND 3+ VIEWS LVENNYPZ19/15/2025 2:03 PM EST PROTIME-NFYVsokajt89/14/2025 3:29 PM EST Peripheral arterial occlusive disease Encounter for pre-operative examination ZVYUPdltxhp85/14/2025 3:29 PM EST Peripheral arterial occlusive disease Encounter for pre-operative examination NGJAsptuow31/14/2025 3:29 PM EST Chronic kidney disease, unspecified CKD stage HULRZCDXUSAigeseu22/14/2025 3:29 PM EST Chronic kidney disease, unspecified CKD stage GKMSAGDZXNbnynwz57/14/2025 3:29 PM EST Chronic kidney disease, unspecified CKD stage BASIC METABOLIC PQYERSaxrsba74/14/2025 3:29 PM EST Chronic kidney disease, unspecified CKD stage MAGNESIUMPending Qawnhhafj49/08/2025 4:47 AM EST POCT GLUCOSE METER UNSOLICITED SYMJOTMUpxsacl92/07/2025 10:12 PM EST MAGNESIUMPending Kgpntvwqy17/07/2025 5:07 AM EST BASIC METABOLIC PANELPending Touysbirw12/07/2025 5:07 AM EST CBCPending Dtaxonefx66/07/2025 5:07 AM EST VANCOMYCIN TIMEDPending Gmjzafzjc80/06/2025 4:31 AM EST MAGNESIUMPending Xdldrvjic60/06/2025 4:31 AM EST BASIC METABOLIC PANELPending Hvxzkyjgp51/06/2025 4:31 AM EST CBCPending Dvjmkzell31/06/2025 4:31 AM EST VANCOMYCIN BRQSUKjtfy05/05/2025 9:11 PM EST GATTCXJWRDxmuyky07/05/2025 5:08 AM EST BASIC METABOLIC CFCMPIelvxua47/05/2025 5:08 AM EST UNKIpgbzaq67/05/2025 5:[address] HEAD WO IV LOJBMPELUOTJ98/04/2025 7:57 PM EST CBC WITH AUTO WCPXGVFBABSNFBEX37/04/2025 7:37 PM EST LACTIC ACID WITH 4 HOUR MRBHPJHHOE47/04/2025 7:37 PM EST BASIC METABOLIC OUDGCYOHD77/04/2025 7:37 PM EST CBC AND YOBUSYFPVHPHKGBA97/04/2025 7:37 PM EST BLOOD LWDFCFMTDSJ94/04/2025 7:37 PM EST BLOOD DRIFSTUPTUC77/04/2025 7:37 PM EST WOUND MLKMAMHHITP90/04/2025 5:59 PM EST PREPARE OECErucpja23/30/2025 7:53 AM EDT VASC LOWER EXTREMITY ARTERIAL DUPLEX BYPASS GRAFT LHSXPQriwnuk43/29/2025 9:51 AM EDT LIGHT GREEN GVUXggsygg81/29/2025 3:56 AM EDT EXTRA APVQNLebpkhx94/29/2025 3:56 AM EDT CBCPending Lpjlexzfx49/29/2025 3:56 AM EDT SYJMzigktz23/28/2025 4:11 AM EDT RGAGSPNBWAAfexcqu95/28/2025 4:11 AM EDT HJMBVKCMJTcslkmy60/28/2025 4:11 AM EDT BASIC METABOLIC VCWMQZcgegwy71/28/2025 4:11 AM EDT HDQCHFAHWAVSRD87/27/2025 8:18 PM EDT LVWGYBPXZPMYC81/27/2025 8:18 PM EDT BASIC METABOLIC ABVXHIRDH03/27/2025 8:18 PM EDT VAOOSHB0706/07/2025 8:18 PM EDT INVASIVE VASCULAR LVUWVFECSVshxzul95/27/2025 6:16 PM EDT Lower extremity pain, bilateral Severe claudication Encounter for pre-operative examination POCT ACTIVATED CLOTTING TIME UNSOLICITED CVQSCYNEtucfwc21/27/2025 5:44 PM EDT HISTOLOGY - TISSUE JMEFYovbdqy39/27/2025 5:44 PM EDT Lower extremity pain, bilateral Severe claudication Encounter for pre-operative examination ABG COMPLETE UNSOLICITED YUGVRMXTnnjjqn18/27/2025 5:43 PM EDT NM AN ELECTIVE ENDOTRACHEAL QPMPTECibgacf78/27/2025 3:09 PM EDT ENDARTERECTOMY, COZHNEY7306/07/2025 2:51 PM EDT Lower extremity pain, bilateral Severe claudication Encounter for pre-operative examination NM BYPASS W/VEIN FEMORAL-AXQCZEQVA98/27/2025 2:51 PM EDT Lower extremity pain, bilateral Severe claudication Encounter for pre-operative examination ANESTHESIA ARTERIAL LINE FWHNYQACEBbcbgaj45/27/2025 12:38 PM EDT POCT GLUCOSE METER UNSOLICITED VAMBDCVGlrsbed04/27/2025 9:57 AM EDT BASIC METABOLIC KPZHIHswqngr01/20/2025 11:59 AM EDT Hyperkalemia PTH, ROQTBBRijfqfo41/15/2025 2:54 PM EDT Kidney disease, chronic, stage IV (GFR 15-29 ml/min) ([facility]/HCC) Essential hypertension Hyperkalemia VITAMIN D 25 URLIDAOPzthkrj31/15/2025 2:54 PM EDT Kidney disease, chronic, stage IV (GFR 15-29 ml/min) (CMS/HCC) Essential hypertension Hyperkalemia KHIKARCSXCLhppdji14/15/2025 2:54 PM EDT Kidney disease, chronic, stage IV (GFR 15-29 ml/min) ([facility]) Essential hypertension Hyperkalemia PJYLZVNQVLdjdlbh63/15/2025 2:54 PM EDT Kidney disease, chronic, stage IV (GFR 15-29 ml/min) ([facility]) Essential hypertension Hyperkalemia BBPUdgacmc20/15/2025 2:54 PM EDT Kidney disease, chronic, stage IV (GFR 15-29 ml/min) ([facility]) Essential hypertension Hyperkalemia BASIC METABOLIC RZDXKVqciihf51/15/2025 2:54 PM EDT Kidney disease, chronic, stage IV (GFR 15-29 ml/min) ([facility]) Essential hypertension Hyperkalemia CREATININE, URINE, GQKCVCEzjsclf79/15/2025 2:54 PM EDT Kidney disease, chronic, stage IV (GFR 15-29 ml/min) ([facility]) Essential hypertension Hyperkalemia MICROALBUMIN, URINE, SSAKXYUvbpoyp70/15/2025 2:54 PM EDT Kidney disease, chronic, stage IV (GFR 15-29 ml/min) ([facility]) Essential hypertension Hyperkalemia URINALYSIS WITH XDAYIPPJRNDBrtkziz72/15/2025 2:54 PM EDT Kidney disease, chronic, stage IV (GFR 15-29 ml/min) ([facility]) Essential hypertension Hyperkalemia PREPARE TLYGPQY82/13/2025 4:02 PM EDT TYPE AND WVTHIGJhzqeot80/13/2025 2:48 PM EDT Severe claudication Encounter for pre-operative examination VNDKWjnekjj15/13/2025 2:48 PM EDT Lower extremity pain, bilateral Severe claudication Encounter for pre-operative examination PROTIME-WUVIjtlfnx47/13/2025 2:48 PM EDT Lower extremity pain, bilateral Severe claudication Encounter for pre-operative examination BASIC METABOLIC CAHGNPdjzbkn65/13/2025 2:48 PM EDT Lower extremity pain, bilateral Severe claudication Encounter for pre-operative examination VVJDuoughe78/13/2025 2:48 PM EDT Lower extremity pain, bilateral Severe claudication Encounter for pre-operative examination MRSA/MSSA DNA HTUPXYaqfgwo08/13/2025 2:48 PM EDT Lower extremity pain, bilateral Severe claudication Encounter for pre-operative examination CORONARY BYPASS GRAFT ZIBBKEedrqih11/30/2025 12:47 PM EDT Reduced ejection fraction concurrent with and due to acute heart failure (CMS/HCC) CORONARY JZSSFQYGJTJBtqctml58/30/2025 12:47 PM EDT Reduced ejection fraction concurrent with and due to acute heart failure (CMS/HCC) ECG 12-ZMDOFxwnxdy98/30/2025 8:08 AM EDT COMPLETE TRANSTHORACIC ECHO (TTE) W/WO IMAGING AGENT, STRAIN, 3D, BUBBLE STUDY Xoyxwgx0604/27/2025 5:03 PM EDTLEXISCAN STRESS MYOCARDIAL PERFUSION IMAGINGRoutine 04/20/2025 3:22 PM EDTCT TRANSFER OF OUTSIDE LNYRXQspexrt73/04/2025 12:00 AM EDT from Last 3 Months Results * (ABNORMAL) CBC (07/05/2025 1:47 PM EST) Only the most recent of10 resultswithin the time period is included. ComponentValueRef RangeTest MethodAnalysis TimePerformed AtPathologist Signature Auto WBC4.414.00 - 10.60 10*3/uL07/05/2025 2:05 PM [facility] ([facility]) RBC3.46(L)4.20 - 5.70 10*6/uL07/05/2025 2:05 PM [facility] ([facility]) Ypxjtfcsgz73.1(L)13.0 - 17.0 g/dL07/05/2025 2:05 PM [facility] ([facility])Dzekgufyzu12.3(L)39.0 - 50.0 %07/05/2025 2:05 PM [facility] ([facility])MCV93.482.0 - 98.0 fL07/05/2025 2:05 PM [facility] ([facility])MCH 29.227.0 - 33.0 pg07/05/2025 2:05 PM [facility] ([facility])MCHC31.3(L) 32.0 - 35.0 g/dL07/05/2025 2:05 PM [facility] ([facility])RDW15.1(H)11.5 - 15.0 %07/05/2025 2:05 PM [facility] ([facility])Hfekmpxuc459(L)150 - 400 10*3/uL07/05/2025 2:05 PM [facility] ([facility])Specimen (Source) Anatomical Location / LateralityCollection Method / VolumeCollection Time Received TimeBloodVenous blood specimen / UnknownVenipuncture / Unknown 07/05/2025 1:47 PM EST07/05/2025 1:54 PM EST Narrative Authorizing ProviderResult TypeResult StatusKyu Sammy Newsome MDLAB BLOOD ORDERABLESFinal ResultPerforming OrganizationAddressCity/State/ZIP CodePhone Number [facility] ([facility]) [address] [place] [address] * (ABNORMAL) Basic metabolic panel (07/05/2025 1:47 PM EST) Only the most recent of13 resultswithin the time period is included. ComponentValueRef RangeTest MethodAnalysis TimePerformed AtPathologist Signature Yenzck782746 - 145 mmol/L109/04/2024 2:18 PM [facility] ([facility]) Potassium4.83.5 - 5.1 mmol/L109/04/2024 2:18 PM [facility] ([facility]) Uscpposb804(H)98 - 107 mmol/L109/04/2024 2:18 PM [facility] ([facility])CO2 2421 - 31 mmol/L109/04/2024 2:18 PM [facility] ([facility])ONX839 - 25 mg/dL07/05/2025 2:18 PM [facility] ([facility])Creatinine1.45(H)0.70 - 1.30 mg/dL07/05/2025 2:18 PM [facility] ([facility])Cjfwzvc3953 - 100 mg/dL07/05/2025 2:18 PM [facility] ([facility])Calcium8.68.6 - 10.3 mg/dL 07/05/2025 2:18 PM [facility] ([facility])Anion Gap97 - 20 mmol/L 07/05/2025 2:18 PM [facility] ([facility])eGFR51.2(L)>60.0 mL/min/1.73m*2 07/05/2025 2:18 PM [facility] ([facility])Comment:[facility]???s estimated glomerular filtration rate (eGFR) will no longer include consideration of race in its calculation. The National Kidney Foundation???s eGFR Task Force developed new recommendations for the estimation of the glomerular filtration rate in the [place] They recommend immediate implementation of the new equation refit without the race variable in all la boratories because the calculation does not include race. In addition to not including race in the calculation and reporting, it included diversity in its development, and has acceptable performance characteristics and potential consequences that do not disproportionately affect any one group of individuals. BUN/Creatinine Ratio15. 2:18 PM [facility] ([facility])Specimen (Source)Anatomical Location / LateralityCollection Method / VolumeCollection TimeReceived TimeBloodVenous blood specimen / UnknownVenipuncture / Unknown 07/05/2025 1:47 PM EST07/05/2025 1:53 PM EST Narrative Authorizing ProviderResult TypeResult StatusKyu Sammy Newsome MDLAB BLOOD ORDERABLESFinal ResultPerforming OrganizationAddressCity/State/ZIP CodePhone Number [facility] ([facility]) [address] [place] [address] * Diagnostic Colonoscopy (07/01/2025 2:36 PM EST)Anatomical [...] on 07/01/25 Attending Physician: ??Christie Horton MD Lime Spreader: ??Maria Eugenia Dodd MD Procedure Details Informed [...] AtPathologist SignaturepH, Ven7.28(L)7.31 - 7.41108/31/2024 11:42 AM [facility] RESPIRATORY THERAPYpCO2, Dcj8636 - 50 mmHg 07/01/2025 11:42 AM [facility] RESPIRATORY THERAPYpO2, Ven26(L)35 - 45 mmHg 07/01/2025 11:42 AM [facility] RESPIRATORY THERAPYO2 Sat, Ven34.0(LL)65.0 - 75.0 %07/01/2025 11:42 AM [facility] RESPIRATORY THERAPYHCO3, Lomxgp29.2mmol/L 07/01/2025 11:42 AM [facility] RESPIRATORY THERAPYOxyhemoglobin, Vlvhee27.3% 07/01/2025 11:42 AM [facility] RESPIRATORY THERAPYpH Venous Temp Adjusted7.28(L) 7.31 - 7.41108/31/2024 11:42 AM [facility] RESPIRATORY THERAPYpCO2 Venous Temp Dqaoeume8751 - 50 mmHg07/01/2025 11:42 AM [facility] RESPIRATORY THERAPYpO2 Venous Temp Ezwsvnag68(L)35 - 45 mmHg07/01/2025 11:42 AM [facility] RESPIRATORY CAFUZFJCobbwueipoy76.0??07/01/2025 11:42 AM [facility] RESPIRATORY THERAPY Specimen (Source)Anatomical Location / LateralityCollection Method / Volume Collection TimeReceived TimeBloodVenous blood specimen / UnknownVenipuncture / Pgtkflb7907/01/2025 11:28 AM EST07/01/2025 11:38 AM EST Narrative Authorizing ProviderResult TypeResult StatusFrench CEE BLOOD ORDERABLESFinal ResultPerforming OrganizationAddressCity/State/ZIP CodePhone Number [facility] RESPIRATORY THERAPY [address] [place] [address], [place] * POCT glucose meter (07/01/2025 9:23 AM EST) Only the most recent of9 resultswithin the time period is included. ComponentValueRef RangeTest MethodAnalysis TimePerformed AtPathologist Signature Glucose EHF7029 - 105 mg/dL07/01/2025 9:34 AM [facility] ([facility]) Comment:jdlugolSpecimen (Source)Anatomical Location / LateralityCollection Method / VolumeCollection TimeReceived TimeBloodCapillary blood specimen / Dylbfyr9607/01/2025 9:23 AM EST07/01/2025 9:34 AM EST Narrative [facility] ([facility]) - 07/01/2025 9:34 AM EST Waived Testing in the ED is performed under the ED CLIA certificate #[id number]. Authorizing ProviderResult TypeResult StatusFrench CEE BLOOD ORDERABLESFinal ResultPerforming OrganizationAddressCity/State/ZIP CodePhone Number [facility] ([facility]) [address] [place] [address] * (ABNORMAL) Hemoglobin and hematocrit, blood (07/01/2025 6:51 AM EST) Only the most recent of3 resultswithin the time period is included. ComponentValueRef RangeTest MethodAnalysis TimePerformed AtPathologist Signature Bbzvusrdtm97.3(L)13.0 - 17.0 g/dL07/01/2025 7:16 AM [facility] ([facility])Mbddnsrufc00.8(L)39.0 - 50.0 %07/01/2025 7:16 AM [facility] ([facility])Specimen (Source)Anatomical Location / LateralityCollection Method / VolumeCollection TimeReceived TimeBloodVenous blood specimen / Unknown Venipuncture / Aeeegqw2207/01/2025 6:51 AM EST07/01/2025 6:56 AM EST Narrative Authorizing ProviderResult TypeResult StatusMunier Nazzal MDLAB BLOOD ORDERABLES Final ResultPerforming OrganizationAddressCity/State/ZIP CodePhone Number [facility] ([facility]) [address] [place] [address] * Light Green Top (07/01/2025 6:00 AM EST) Only the most recent of2 resultswithin the time period is included. ComponentValueRef RangeTest MethodAnalysis TimePerformed AtPathologist Signature Extra TubeHold for add-ons.07/01/2025 8:01 AM [facility] ([facility]) Comment:Auto resulted.Specimen (Source)Anatomical Location / Laterality Collection Method / VolumeCollection TimeReceived TimeBloodVenous blood specimen / Oqxdwec3207/01/2025 6:00 AM EST07/01/2025 6:57 AM EST Narrative Authorizing ProviderResult TypeResult StatusFrench Newsome NCLAB BLOOD ORDERABLESFinal ResultPerforming OrganizationAddressCity/State/ZIP CodePhone Number [facility] ([facility]) [address] [place] [address] * Diagnostic Colonoscopy (06/30/2025 2:25 PM EST)Anatomical [...] on 06/30/25 Attending Physician: ??Kortney Gandhi MD Lime Spreader: ??None Procedure Details Informed consent was obtained [...] Gandhi MDENDOSCOPY PROCEDURE ORDERABLESFinal Result * (ABNORMAL) Hemoglobin (06/29/2025 11:10 PM EST) Only the most recent of2 resultswithin the time period is included. ComponentValueRef RangeTest MethodAnalysis TimePerformed AtPathologist Signature Gwwjqpknfk01.5(L)13.0 - 17.0 g/dL06/30/2025 12:47 AM [facility] ([facility])Specimen (Source)Anatomical Location / LateralityCollection Method / VolumeCollection TimeReceived TimeBloodVenous blood specimen / Unknown Venipuncture / Pjrevli5706/29/2025 11:10 PM EST06/30/2025 12:13 AM EST Narrative Authorizing ProviderResult TypeResult StatusGerman CEE BLOOD ORDERABLES Final ResultPerforming OrganizationAddressCity/State/ZIP CodePhone Number [facility] ([facility]) [address] [place] [address] * Transfuse RBC (06/29/2025 8:09 AM EST) Only the most recent of2 resultswithin the time period is included. Narrative Authorizing ProviderResult TypeResult StatusIdwilfredo VELAOOD TRANSFUSION ORDERABLESFinal Result * (ABNORMAL) CBC auto differential (06/29/2025 5:45 AM EST) Only the most recent of4 resultswithin the time period is included. ComponentValueRef RangeTest MethodAnalysis TimePerformed AtPathologist Signature Auto WBC4.904.00 - 10.60 10*3/uL06/29/2025 6:07 AM [facility] ([facility]) RBC3.01(L)4.20 - 5.70 10*6/uL06/29/2025 6:07 AM [facility] ([facility]) Hemoglobin8.9(L)13.0 - 17.0 g/dL06/29/2025 6:07 AM [facility] ([facility]) Rvbrrovzlm87.6(L)39.0 - 50.0 %06/29/2025 6:07 AM [facility] ([facility]) MCV95.082.0 - 98.0 fL06/29/2025 6:07 AM [facility] ([facility])MCH29.627.0 - 33.0 pg06/29/2025 6:07 AM [facility] ([facility])MCHC31.1(L)32.0 - 35.0 g/dL06/29/2025 6:07 AM [facility] ([facility])RDW15.3(H)11.5 - 15.0 % 06/29/2025 6:07 AM [facility] ([facility])Neutrophils %75.1(H)40.0 - 72.0 %06/29/2025 6:07 AM [facility] ([facility])Lymphocytes %12.7(L)20.0 - 45.0 %06/29/2025 6:07 AM [facility] ([facility])Monocytes %7.35.0 - 12.0 % 06/29/2025 6:07 AM [facility] ([facility])Eosinophils %3.30.0 - 6.0 % 06/29/2025 6:07 AM [facility] ([facility])Basophils %0.80.0 - 1.0 % 06/29/2025 6:07 AM [facility] ([facility])Neutrophils Absolute3.681.60 - 7.60 10*3/uL06/29/2025 6:07 AM [facility] ([facility])Lymphocytes Absolute 0.62(L)1.20 - 4.00 10*3/uL06/29/2025 6:07 AM [facility] ([facility]) Monocytes Absolute0.360.10 - 1.00 10*3/uL06/29/2025 6:07 AM [facility] ([facility])Eosinophils Absolute0.160.00 - 0.50 10*3/uL06/29/2025 6:07 AM [facility] ([facility])Basophils Absolute0.040.00 - 0.20 10*3/uL06/29/2025 6:07 AM [facility] ([facility])Pviptxjmm025(L)150 - 400 10*3/uL06/29/2025 6:07 AM [facility] ([facility])nRBC %0.00 %06/29/2025 6:07 AM [facility] ([facility])Immature Granulocytes %0.80.0 - 1.0 %06/29/2025 6:07 AM [facility] ([facility])Immature Granulocytes Absolute0.040.00 - 0.20 10*3/uL06/29/2025 6:07 AM [facility] ([facility])Specimen (Source)Anatomical Location / LateralityCollection Method / VolumeCollection TimeReceived TimeBloodVenous blood specimen / UnknownVenipuncture / Mgetbdh5206/29/2025 5:45 AM EST06/29/2025 5:59 AM EST Narrative Authorizing ProviderResult TypeResult StatusIdrees Vivek NCTAMMIE BLOOD ORDERABLESFinal ResultPerforming OrganizationAddressCity/State/ZIP CodePhone Number [facility] ([facility]) [address] [place] [address] * (ABNORMAL) Comprehensive metabolic panel (06/29/2025 5:45 AM EST) Only the most recent of3 resultswithin the time period is included. ComponentValueRef RangeTest MethodAnalysis TimePerformed AtPathologist Signature [id number] - 145 mmol/L108/29/2024 6:30 AM [facility] ([facility]) Potassium5.13.5 - 5.1 mmol/L108/29/2024 6:30 AM [facility] ([facility]) Xzenykdp473(H)98 - 107 mmol/L108/29/2024 6:30 AM [facility] ([facility])CO2 2121 - 31 mmol/L108/29/2024 6:30 AM [facility] ([facility])Anion Ldh894 - 20 mmol/L108/29/2024 6:30 AM [facility] ([facility])NSS420 - 25 mg/dL 06/29/2025 6:30 AM [facility] ([facility])Creatinine1.63(H)0.70 - 1.30 mg/dL06/29/2025 6:30 AM [facility] ([facility])BUN/Creatinine Ratio14.1 06/29/2025 6:30 AM [facility] ([facility])Picyddj7242 - 100 mg/dL 06/29/2025 6:30 AM [facility] ([facility])Calcium8.68.6 - 10.3 mg/dL 06/29/2025 6:30 AM [facility] ([facility])AST49(H)13 - 39 U/L108/29/2024 6:30 AM [facility] ([facility])ALT (SGPT)457 - 52 U/L108/29/2024 6:30 AM [facility] ([facility])Alkaline Rchqxgjmdme842(H)34 - 104 U/L108/29/2024 6:30 AM [facility] ([facility])Total Protein5.9(L)6.0 - 8.3 g/dL06/29/2025 6:30 AM [facility] ([facility])Albumin3.53.5 - 5.7 g/dL06/29/2025 6:30 AM [facility] ([facility])Total Bilirubin1.1(H)0.3 - 1.0 mg/dL06/29/2025 6:30 AM [facility] ([facility])eGFR44.5(L)>60.0 mL/min/1.73m* 6:30 AM [facility] ([facility])Comment:[facility]???s estimated glomerular filtration rate (eGFR) will [...] disproportionately affect any one group of individuals.Specimen (Source) Anatomical Location / LateralityCollection Method / VolumeCollection Time Received TimeBloodVenous blood specimen / UnknownVenipuncture / Unknown 06/29/2025 5:45 AM EST06/29/2025 5:59 AM EST Narrative Authorizing ProviderResult TypeResult StatusIdrees Vivek CEE BLOOD ORDERABLESFinal ResultPerforming OrganizationAddressCity/State/ZIP CodePhone Number [facility] ([place]) [address] [place] [address] * Prepare RBC: 2 Units (06/29/2025 1:40 AM EST) Only the most recent of3 resultswithin the time period is included. ComponentValueRef RangeTest MethodAnalysis TimePerformed AtPathologist Signature PRODUCT [id number] BLOOD BANKUnit [id number] BLOOD BANKUnit [facility] BLOOD BANKUnit [facility] BLOOD BANKCrossmatch InterpretationCOMNORTHERN NAVAJO [facility] BLOOD BANKDispense [facility] BLOOD BANKBlood Expiration [id number] BLOOD BANKProduct Blood [id number] BLOOD BANKUnit [id number] BLOOD BANK PRODUCT [id number] BLOOD BANKUnit [id number] BLOOD BANKUnit [facility] BLOOD BANKUnit [facility] BLOOD BANKCrossmatch InterpretationCOMNORTHERN NAVAJO [facility] BLOOD BANKDispense [facility] BLOOD BANKBlood Expiration [id number] BLOOD BANKProduct Blood [id number] BLOOD BANKSpecimen (Source)Anatomical Location / LateralityCollection Method / VolumeCollection TimeReceived TimeOther 06/29/2025 1:40 AM EST Narrative Authorizing ProviderResult TypeResult StatusIdrees Vivek VELAOOD BANK PRODUCT ORDERABLESFinal ResultPerforming OrganizationAddressCity/State/ZIP Code Phone Number [facility] BLOOD BANK * Type and screen (06/29/2025 12:33 AM EST) Only the most recent of2 resultswithin the time period is included. ComponentValueRef RangeTest MethodAnalysis TimePerformed AtPathologist Signature ABO VptnacowA82/18/2025 2:08 AM [facility] BLOOD BANKRh ShlnAMJ1406/29/2025 2:08 AM [facility] BLOOD BANKAb AvgfNNJ8006/29/2025 2:08 AM [facility] BLOOD BANKSpecimen (Source)Anatomical Location / LateralityCollection Method / VolumeCollection TimeReceived TimeBloodVenous blood specimen / UnknownVenipuncture / Unknown 06/29/2025 12:33 AM EST06/29/2025 12:58 AM EST Narrative Authorizing ProviderResult TypeResult StatusNasheed Moisés CEE BLOOD BANK TEST ORDERABLESFinal ResultPerforming OrganizationAddressCity/State/ZIP Code Phone Number [facility] * CTA Abdomen Pelvis W IV Contrast [...] disease. Celiac artery: ??Patent. 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 Superior mesenteric artery: ??Patent. Atherosclerotic [...] disease. Celiac artery: Patent. Atherosclerotic disease causing afig-io-tugqfygrmrsbzv stenosis. Superior mesenteric artery: Patent. Atherosclerotic disease [...] signed: Bryson Grant. Authorizing ProviderResult TypeResult StatusNasheed Moisés MDIMG CT PROCEDURES Final Result * (ABNORMAL) POCT occult blood stool manually resulted (06/28/2025 7:15 PM EST) ComponentValueRef RangeTest MethodAnalysis TimePerformed AtPathologist SignatureFecal Occult BloodPositiveQC Pass/FailPassedQC LOT #[id number] Expiration Date04/07Specimen (Source)Anatomical Location / LateralityCollection Method / VolumeCollection TimeReceived FnnzAyzij02/17/2025 7:15 PM EST Narrative Authorizing ProviderResult TypeResult StatusNasheed Moisés MDPOINT OF CARE TEST ENTER/EDIT ORDERABLESFinal Result * High Sensitivity Troponin I (06/26/2025 4:40 PM EST) Only the most recent of2 resultswithin the time period is included. ComponentValueRef RangeTest MethodAnalysis TimePerformed AtPathologist Signature High Sensitivity Troponin I8<20 ng/L108/26/2024 5:13 PM [facility])Specimen (Source)Anatomical Location / LateralityCollection Method / VolumeCollection TimeReceived TimeBloodVenous blood specimen / Unknown Venipuncture / Medoxki8806/26/2025 4:40 PM EST06/26/2025 4:43 PM EST Narrative Authorizing ProviderResult TypeResult StatusBrayan CEE BLOOD ORDERABLESFinal ResultPerforming OrganizationAddressCity/State/ZIP CodePhone Number [facility] ([place]) [address], [place] [id number] * CTA Aorta And Bilateral Iliofemoral Runoff W IV Contrast (06/26/2025 4:39 PM EST)Anatomical RegionLateralityModalityBodyComputed TomographySpecimen (Source)Anatomical Location / LateralityCollection Method / VolumeCollection TimeReceived Time06/26/2025 5:25 PM EST Impressions 06/26/2025 7:25 PM EST * Patent inflow bilaterally. * Patent SFA bypass graft extending from the right common femoral artery to the right popliteal artery with fluid collections at both the proximal and distal ends as detailed above. Small focus of gas within the proximal collection, correlate for recent instrumentation. Infection cannot be excluded. * Scattered moderate to severe atherosclerotic disease with complete or near complete occlusion of the distal left SFA with distal reconstitution at the left popliteal artery. * Patent three-vessel runoff bilaterally. * Indeterminant 2.3 cm right renal lesion which does not meet criteria for simple cyst. Further characterization may be performed with renal protocol MRI with and without contrast on a nonemergent basis. Approved by:Manohar Ríos08/26/2024 6:13 PM. I, Misha Ferrara,have reviewed the image(s) and agree with the findings in this report. Electronically signed: Misha Ferrara. Narrative 06/26/2025 7:25 PM EST History: Leg weakness and numbness, history of peripheral vascular disease. Technique: CT angiography of the abdominal aorta and bilateral ilio-femoral run off was performed. Arterial phase CTA was performed from the dome of the diaphragm through the feet. Contrast: Omnipaque 350, 130 mL IV. Comparison: None. POST PROCESSIND advanced post-processing was performed by the interpreting physician using an independent workstation utilizing a combination of MIP and MPR techniques to better evaluate anatomy and disease process. 3D rendering was performed with physician participation and supervision. The abdominal and pelvic vessels are as follows: Aorta: Patent. Moderate to severe atherosclerotic calcification. No evidence of aneurysm or dissection. 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 Superior mesenteric artery: Moderate to Severe stenosis secondary to heavy atherosclerotic calcification, however appears remains patent throughout its course. Inferior mesenteric artery: Patent. Mild atherosclerotic calcification at the origin. Renal arteries: Dual right and left renal arteries are patent, with mild atherosclerotic calcification at the origins. LEFT: LEFT Common iliac artery: Moderate to severe stenosis secondary to diffuse atherosclerotic plaque. LEFT External iliac artery: Moderate stenosis secondary to atherosclerotic plaque proximally. LEFT Internal iliac artery: Severe stenosis secondary to atherosclerotic plaque at the origin. LEFT Common femoral artery: Moderate stenosis secondary to diffuse atherosclerotic plaque. LEFT Profunda femoris: Patent, with mild scattered atherosclerotic plaque. LEFT Superficial femoral artery: Patent proximally with moderate to severe scattered atherosclerotic plaque. Focal areas of complete or near complete occlusion distally (for example series 6, image 900) with distal reconstitution at the left popliteal artery. LEFT Popliteal artery: Patent with mild scattered atherosclerotic plaque. More severe stenosis distally, just proximal to the bifurcation. LEFT Anterior tibial artery: Patent, mild to moderate scattered atherosclerotic plaque. LEFT Tibioperoneal trunk: Patent, moderate scattered atherosclerotic plaque. LEFT Peroneal artery: patent LEFT Posterior tibial artery: patent LEFT Dorsalis pedis: patent LEFT Plantar arch: patent RIGHT: RIGHT Common iliac artery: Moderate to severe stenosis secondary to scattered atherosclerotic plaque. RIGHT External iliac artery: Patent with mild atherosclerotic plaque. RIGHT Internal iliac artery: Severe stenosis secondary to atherosclerotic plaque. RIGHT Common femoral artery: Postoperative changes compatible with SFA bypass graft extending from the right common femoral artery to the right popliteal artery, which appears patent. Fluid collection overlying the proximal portion of the bypass graft at the right groin measures 3.4 x 3.4 cm (6, 596). Fluid collection also overlies the distal end of the graft measuring 2.0 x 2.7 cm (6, 946). RIGHT Profunda femoris: patent with mild atherosclerotic calcification. RIGHT Superficial femoral artery: Occluded. RIGHT Popliteal artery: Patent with mild scattered atherosclerotic calcification. RIGHT Anterior tibial artery: Patent with moderate atherosclerotic calcification at the origin. RIGHT Tibioperoneal trunk: Patent with mild scattered atherosclerotic calcification. RIGHT Peroneal artery: patent RIGHT Posterior tibial artery: patent RIGHT Dorsalis pedis: patent RIGHT Plantar arch: patent Additional findings: * Cardiomegaly, severe coronary artery calcifications. Mosaic attenuation of the pulmonary parenchyma, nonspecific but can be seen in setting of pulmonary edema. * The liver, gallbladder, spleen, pancreas, and adrenal glands, demonstrate no acute abnormality. * 2.3 cm right renal lesion (4, 43) does not meet criteria for simple cyst. Additional subcentimeter hypoattenuating renal lesions are too small to characterize and statistically likely to represent cysts. Left renal atrophy. * Normal caliber large and small bowel. No free intraperitoneal air or fluid. The appendix appears unremarkable. No enlarged retroperitoneal mesenteric lymph nodes by CT size criteria. Prostate appears unremarkable. No acute osseous abnormality. Multilevel degenerative changes of the thoracolumbar spine with approximately 7 mm retrolisthesis L5 on S1. Fat-containing right inguinal hernia. Procedure Note Misha Ferrara MD - 06/26/2025 History: Leg weakness and numbness, history of peripheral vasculardisease. Technique: CT angiography of the abdominal aorta and bilateralilio-femoral run off was performed. Arterial phase CTA was performed from the dome of the diaphragm through the feet. Contrast: Omnipaque 350, 130 mL IV. Comparison: None. POST PROCESSIND advanced post-processing was performed by theinterpreting physician using an independent workstation utilizing a combination of MIPand MPR techniques to better evaluate anatomy and disease process. 3Drendering was performed with physician participation and supervision. The abdominal and pelvic vessels are as follows: Aorta: Patent. Moderate to severe atherosclerotic calcification. Noevidence of aneurysm or dissection. Celiac artery: Severe ostial narrowing due to arcuate ligamentcompression. Superior mesenteric artery: Moderate to Severe stenosis secondary toheavy atherosclerotic calcification, however appears remains patent throughoutits course. Inferior mesenteric artery: Patent. Mild atherosclerotic calcification atthe origin. Renal arteries: Dual right and left renal arteries are patent, with mild atherosclerotic calcification at the origins. LEFT: LEFT Common iliac artery: Moderate to severe stenosis secondary todiffuse atherosclerotic plaque. LEFT External iliac artery: Moderate stenosis secondary toatherosclerotic plaque proximally. LEFT Internal iliac artery: Severe stenosis secondary to atheroscleroticplaque at the origin. LEFT Common femoral artery: Moderate stenosis secondary to diffuse atherosclerotic plaque. LEFT Profunda femoris: Patent, with mild scattered atheroscleroticplaque. LEFT Superficial femoral artery: Patent proximally with moderate tosevere scattered atherosclerotic plaque. Focal areas of complete or nearcomplete occlusion distally (for example series 6, image 900) with distalreconstitution at the left popliteal artery. LEFT Popliteal artery: Patent with mild scattered atherosclerotic plaque.More severe stenosis distally, just proximal to the bifurcation. LEFT Anterior tibial artery: Patent, mild to moderate scatteredatherosclerotic plaque. LEFT Tibioperoneal trunk: Patent, moderate scattered atheroscleroticplaque. LEFT Peroneal artery: patent LEFT Posterior tibial artery: patent LEFT Dorsalis pedis: patent LEFT Plantar arch: patent RIGHT: RIGHT Common iliac artery: Moderate to severe stenosis secondary toscattered atherosclerotic plaque. RIGHT External iliac artery: Patent with mild atherosclerotic plaque. RIGHT Internal iliac artery: Severe stenosis secondary toatherosclerotic plaque. RIGHT Common femoral artery: Postoperative changes compatible with SFAbypass graft extending from the right common femoral artery to the rightpopliteal artery, which appears patent. Fluid collection overlying the proximalportion of the bypass graft at the right groin measures 3.4 x 3.4 cm (6, 596).Fluid collection also overlies the distal end of the graft measuring 2.0 x 2.7cm (6, 946). RIGHT Profunda femoris: patent with mild atherosclerotic calcification. RIGHT Superficial femoral artery: Occluded. RIGHT Popliteal artery: Patent with mild scattered atherosclerotic calcification. RIGHT Anterior tibial artery: Patent with moderate atheroscleroticcalcification at the origin. RIGHT Tibioperoneal trunk: Patent with mild scattered atherosclerotic calcification. RIGHT Peroneal artery: patent RIGHT Posterior tibial artery: patent RIGHT Dorsalis pedis: patent RIGHT Plantar arch: patent Additional findings: *Cardiomegaly, severe coronary artery calcifications. Mosaic attenuationof the pulmonary parenchyma, nonspecific but can be seen in setting ofpulmonary edema. *The liver, gallbladder, spleen, pancreas, and adrenal glands,demonstrate no acute abnormality. *2.3 cm right renal lesion (4, 43) does not meet criteria for simplecyst. Additional subcentimeter hypoattenuating renal lesions are too small to characterize and statistically likely to represent cysts. Left renalatrophy. *Normal caliber large and small bowel. No free intraperitoneal air or fluid. The appendix appears unremarkable. No enlarged retroperitonealmesenteric lymph nodes by CT size criteria. Prostate appears unremarkable. No acuteosseous abnormality. Multilevel degenerative changes of the thoracolumbar spinewith approximately 7 mm retrolisthesis L5 on S1. Fat-containing rightinguinal hernia. IMPRESSION: *Patent inflow bilaterally. *Patent SFA bypass graft extending from the right common femoral arteryto the right popliteal artery with fluid collections at both the proximaland distal ends as detailed above. Small focus of gas within the proximal collection, correlate for recent instrumentation. Infection cannot beexcluded. *Scattered moderate to severe atherosclerotic disease with complete ornear complete occlusion of the distal left SFA with distal reconstitution atthe left popliteal artery. *Patent three-vessel runoff bilaterally. *Indeterminant 2.3 cm right renal lesion which does not meet criteriafor simple cyst. Further characterization may be performed with renal protocolMRI with and without contrast on a nonemergent basis. Approved by:Manohar Ríos08/26/2024 6:13 PM. I, Misha Win,have reviewed the image(s) and agree with the findings inthis report. Electronically signed: Misha Ferrara. Authorizing ProviderResult TypeResult StatusBrayan Gutierrez MDDavid CT PROCEDURES Final Result * CT cervical spine wo IV contrast (06/26/2025 4:39 PM EST)Anatomical Region LateralityModalitySpine, C-spineComputed TomographySpecimen (Source)Anatomical Location / LateralityCollection Method / VolumeCollection TimeReceived Time 06/26/2025 5:12 PM EST Impressions 06/26/2025 5:28 PM EST No evidence of acute fracture or traumatic malalignment involving the cervical spine. Approved by:Manohar Ríos08/26/2024 5:21 PM. Misha Galindo,have reviewed the image(s) and agree with the findings in this report. Electronically signed: Misha Ferrara. Narrative 06/26/2025 5:[address] CERVICAL SPINE WO IV CONTRAST HISTORY: Fall, on anticoagulation. COMPARISON: Chest radiograph 09/09/2009. TECHNIQUE: Multi detector CT slices of the cervical spine were obtained without IV contrast. All CT scans at this facility use dose modulation, iterative reconstruction, and/or weight based dosing when appropriate to reduce radiation dose to as low as reasonably achievable. FINDINGS: Straightening of the normal cervical lordosis. ??The vertebral body heights are preserved. ??Multilevel degenerative disc disease with disc space height most prominently at C5-C6 and C6-C7. There is at least moderate bony neural foraminal stenosis at C5-C6 on the right and C6-C7 on the left. ??Multilevel facet degenerative changes most prominently at C3-C4 on the right. C6 Schmorl's node. No acute fracture is identified. ??The craniocervical junction and atlantoaxial joint are intact. ??No destructive osseous lesion. The prevertebral soft tissues are within normal limits. The paraspinous soft tissues are within normal limits. ??Right apical pleural thickening, which appears to have been present since at least 2009. ??Reflux. Procedure Note Misha Ferrara MD - 06/26/2025 CT CERVICAL SPINE WO IV CONTRAST HISTORY: Fall, on anticoagulation. COMPARISON: Chest radiograph 09/09/2009. TECHNIQUE: Multi detector CT slices of the cervical spine were obtainedwithout IV contrast. All CT scans at this facility use dose modulation,iterative reconstruction, and/or weight based dosing when appropriate to reduceradiation dose to as low as reasonably achievable. FINDINGS: Straightening of the normal cervical lordosis. The vertebral body heightsare preserved. Multilevel degenerative disc disease with disc space heightmost prominently at C5-C6 and C6-C7. There is at least moderate bony neuralforaminal stenosis at C5-C6 on the right and C6-C7 on the left. Multilevel facet degenerative changes most prominently at C3-C4 on the right. C6 Schmorl'snode. No acute fracture is identified. The craniocervical junction andatlantoaxial joint are intact. No destructive osseous lesion. The prevertebral soft tissues are within normal limits. The paraspinoussoft tissues are within normal limits. Right apical pleural thickening,which appears to have been present since at least 2009. Reflux. IMPRESSION: No evidence of acute fracture or traumatic malalignment involving thecervical spine. Approved by:Manohar Ríos08/26/2024 5:21 PM. I, Misha Ferrara,have reviewed the image(s) and agree with the findings inthis report. Electronically signed: Misha Ferrara. Authorizing ProviderResult TypeResult StatusAndresarah Gutierrez MDMCBRIDE [facility] [place] PROCEDURES Final Result * CT head wo IV contrast (06/26/2025 4:39 PM EST) Only the most recent of2 resultswithin the time period is included. Anatomical RegionLateralityModalityHead, NeckComputed TomographySpecimen (Source)Anatomical Location / LateralityCollection Method / VolumeCollection TimeReceived Time06/26/2025 4:53 PM EST Impressions 06/26/2025 4:57 PM EST Impression: * Unremarkable unenhanced CT brain * Electronically signed: Misha Ferrara. Narrative 06/26/2025 4:57 PM EST Clinical History and Information: Fall on anticoagulation Findings: Contrast: None Multidetector helical CT was performed of the brain. ??Axial sagittal coronal images were reviewed. ??Automated exposure control was utilized. ??All CT scans at this facility use dose modulation, iterative reconstruction, and/or weight based dosing when appropriate to reduce radiation dose to as low as reasonably achievable. Comparison:06/15/2025 No acute hemorrhage midline shift nor mass effect. Ventricles and cisterns are stable. Bone images the calvarium are normal. Procedure Note Misha Ferrara MD - 06/26/2025 Clinical History and Information: Fall on anticoagulation Findings: Contrast: None Multidetector helical CT was performed of the brain. Axial sagittalcoronal images were reviewed. Automated exposure control was utilized. All CTscans at this facility use dose modulation, iterative reconstruction, and/or weightbased dosing when appropriate to reduce radiation dose to as low as reasonably achievable. Comparison:06/15/2025 No acute hemorrhage midline shift nor mass effect. Ventricles and cisternsare stable. Bone images the calvarium are normal. IMPRESSION: Impression: *Unremarkable unenhanced CT brain * Electronically signed: Misha Ferrara. Authorizing ProviderResult TypeResult StatusAndresarah Gutierrez MDMCBRIDE [facility] [place] PROCEDURES Final Result * XR hand 3+ views left (06/26/2025 3:45 PM EST) Only the most recent of2 resultswithin the time period is included. Anatomical RegionLateralityModalityUpper Extremities, HandLeftComputed RadiographySpecimen (Source)Anatomical Location / LateralityCollection Method / VolumeCollection TimeReceived Time06/26/2025 4:09 PM EST Impressions 06/26/2025 4:13 PM EST * Interval reduction and splinting of the fifth PIP joint. Approved by:Manohar Ríos08/26/2024 4:12 PM. I, Misha Ferrara,have reviewed the image(s) and agree with the findings in this report. Electronically signed: Misha Ferrara. Narrative 06/26/2025 4:13 PM EST XR HAND 3+ VIEWS LEFT HISTORY: Fifth PIP joint dislocation, status post reduction. COMPARISON: Left hand radiograph 06/26/2025. FINDINGS: Interval reduction of previously dislocated fifth PIP joint with splint in place. ?? Redemonstration of linear radiopaque object projecting over the soft tissues ventral to the distal radius, correlate for foreign body. ?? Procedure Note Misha Ferrara MD - 06/26/2025 XR HAND 3+ VIEWS LEFT HISTORY: Fifth PIP joint dislocation, status post reduction. COMPARISON: Left hand radiograph 06/26/2025. FINDINGS: Interval reduction of previously dislocated fifth PIP joint with splintin place. Redemonstration of linear radiopaque object projecting over the softtissues ventral to the distal radius, correlate for foreign body. IMPRESSION: *Interval reduction and splinting of the fifth PIP joint. Approved by:Manohar Ríos08/26/2024 4:12 PM. I, Misha Ferrara,have reviewed the image(s) and agree with the findings inthis report. Electronically signed: Misha Ferrara. Authorizing ProviderResult TypeResult StatusBrayan PEREZG XR PROCEDURES Final Result * APTT (06/26/2025 2:45 PM EST) Only the most recent of3 resultswithin the time period is included. ComponentValueRef RangeTest MethodAnalysis TimePerformed AtPathologist Signature aPTT28.725.0 - 35.0 Huqdyuj1606/26/2025 3:15 PM [facility] ([facility]) Comment:Clinical significance of the APTT is questionable in the presence of heparin.Specimen (Source)Anatomical Location / LateralityCollection Method / VolumeCollection TimeReceived TimeBloodVenous blood specimen / Unknown Venipuncture / Fduawfr3106/26/2025 2:45 PM EST06/26/2025 2:53 PM EST Narrative Authorizing ProviderResult TypeResult StatusBrayan CEE BLOOD ORDERABLESFinal ResultPerforming OrganizationAddressCity/State/ZIP CodePhone Number [facility] ([facility]) [address], [place] [id number] * (ABNORMAL) Protime-INR (06/26/2025 2:45 PM EST) Only the most recent of3 resultswithin the time period is included. ComponentValueRef RangeTest MethodAnalysis TimePerformed AtPathologist Signature Nwqbmja99.412.3 - 14.8 Vzgiyiw6806/26/2025 3:15 PM [facility] ([facility]) INR1.12(H)0.90 - 1.10108/26/2024 3:15 PM [facility] ([facility])Comment: [facility] RECOMMENDED INR FOR WARFARIN THERAPY CONDITION ?INR PROPHYLAXIS OF VENOUS THROMBOSIS ? 2-3 (HIGH-RISK SURGERY) TREATMENT OF VENOUS THROMBOSIS ? 2-3 TREATMENT OF PULMONARY EMBOLISM ?2-3 PREVENTION OF SYSTEMIC EMBOLISM: ? 2-3 ?ACUTE MYOCARDIAL INFARCTION ?TISSUE HEART VALVES ?VALVULAR HEART DISEASE ?ATRIAL FIBRILLATION ?RECURRENT SYSTEMIC EMBOLISM MECHANICAL HEART VALVE ? 2.5-3.5 FROM: ORAL ANTICOAGULANTS. ??MECHANISM OF ACTION, CLINICAL EFFECTIVENESS, AND OPTIMAL THERAPEUTIC RANGE. ??CHEST 1995;108:231S-246S. Specimen (Source)Anatomical Location / LateralityCollection Method / Volume Collection TimeReceived TimeBloodVenous blood specimen / UnknownVenipuncture / Eczrlqo2106/26/2025 2:45 PM EST06/26/2025 2:53 PM EST Narrative Authorizing ProviderResult TypeResult StatusAndsunshine CEE BLOOD ORDERABLESFinal ResultPerforming OrganizationAddressCity/State/ZIP CodePhone Number [facility] ([facility]) [address] [place] [address] * (ABNORMAL) CK total and CKMB (06/26/2025 2:45 PM EST)ComponentValueRef Range Test MethodAnalysis TimePerformed AtPathologist SignatureTotal CK158.030.0 - 223.0 U/L108/26/2024 4:02 PM [facility] ([facility])CK-MB Index2.2(H)0.0 - 1.9108/26/2024 4:02 PM [facility] ([facility])CK-MB3.50.0 - 5.0 ng/mL 06/26/2025 4:02 PM [facility] ([facility])Specimen (Source)Anatomical Location / LateralityCollection Method / VolumeCollection TimeReceived Time BloodVenous blood specimen / UnknownVenipuncture / Jwelgfh2406/26/2025 2:45 PM EST06/26/2025 2:54 PM EST Narrative Authorizing ProviderResult TypeResult StatusBrayan CEE BLOOD ORDERABLESFinal ResultPerforming OrganizationAddressCity/State/ZIP CodePhone Number [facility] ([facility]) [address] [place] [address] * XR chest 1 view (06/26/2025 2:20 PM EST)Anatomical RegionLateralityModality ChestComputed RadiographySpecimen (Source)Anatomical Location / Laterality Collection Method / VolumeCollection TimeReceived Time06/26/2025 2:44 PM EST Impressions 06/26/2025 2:45 PM EST Impression: * No consolidation or pleural fluid. No acute findings. * Electronically signed: Jose Avila. Narrative 06/26/2025 2:45 PM EST Single view chest History: fall Chest trauma Comparison: 09/09/2009 Procedure Note Jose Avila MD - 06/26/2025 Single view chest History: fall Chest trauma Comparison: 09/09/2009 IMPRESSION: Impression: *No consolidation or pleural fluid. No acute findings. * Electronically signed: Jose Avila. Authorizing ProviderResult TypeResult StatusBrayan PEREZG XR PROCEDURES Final Result * XR pelvis 1 or 2 views (06/26/2025 2:20 PM EST)Anatomical RegionLaterality ModalityBody, PelvisComputed RadiographySpecimen (Source)Anatomical Location / LateralityCollection Method / VolumeCollection TimeReceived Time06/26/2025 2:43 PM EST Impressions 06/26/2025 2:44 PM EST Impression: 1. No acute findings. Consider MRI if you suspect occult process Electronically signed: Jose Avila. Narrative 06/26/2025 2:44 PM EST XR PELVIS 1-2 VIEWS History: fall Pelvic trauma There is no fracture or destructive lesion. Procedure Note Jose Avila MD - 06/26/2025 XR PELVIS 1-2 VIEWS History: fall Pelvic trauma There is no fracture or destructive lesion. IMPRESSION: Impression: 1. No acute findings. Consider MRI if you suspect occult process Electronically signed: Jose Avila. Authorizing ProviderResult TypeResult StatusBrayan Gutierrez MDIMG XR PROCEDURES Final Result * Phosphorus (06/25/2025 3:29 PM EST) Only the most recent of4 resultswithin the time period is included. ComponentValueRef RangeTest MethodAnalysis TimePerformed AtPathologist Signature Phosphorus3.02.5 - 5.0 mg/dL06/25/2025 4:43 PM [facility] ([facility]) Specimen (Source)Anatomical Location / LateralityCollection Method / Volume Collection TimeReceived TimeBloodVenous blood specimen / UnknownVenipuncture / Kfnzzlw1206/25/2025 3:29 PM EST06/25/2025 3:49 PM EST Narrative Authorizing ProviderResult TypeResult StatusBatsheva CEE BLOOD ORDERABLES Final ResultPerforming OrganizationAddressCity/State/ZIP CodePhone Number [facility] ([facility]) [address] [place] [address] * Magnesium (06/25/2025 3:29 PM EST) Only the most recent of8 resultswithin the time period is included. ComponentValueRef RangeTest MethodAnalysis TimePerformed AtPathologist Signature Magnesium1.91.9 - 2.7 mg/dL06/25/2025 4:43 PM [facility] ([facility]) Specimen (Source)Anatomical Location / LateralityCollection Method / Volume Collection TimeReceived TimeBloodVenous blood specimen / UnknownVenipuncture / Ncfpqkj4806/25/2025 3:29 PM EST06/25/2025 3:49 PM EST Narrative Authorizing ProviderResult TypeResult StatusBatsheva CEE BLOOD ORDERABLES Final ResultPerforming OrganizationAddressCity/State/ZIP CodePhone Number [facility] ([facility]) [address] [place] [address] * (ABNORMAL) Vancomycin Timed (06/17/2025 4:31 AM EST) Only the most recent of2 resultswithin the time period is included. ComponentValueRef RangeTest MethodAnalysis TimePerformed AtPathologist Signature Vancomycin Timed16.7(L)20.0 - 40.011 5:31 AM [facility] ([facility])Specimen (Source)Anatomical Location / LateralityCollection Method / VolumeCollection TimeReceived TimeBloodVenous blood specimen / Unknown Venipuncture / Ucqrhrv8206/17/2025 4:31 AM EST06/17/2025 4:56 AM EST Narrative Authorizing ProviderResult TypeResult StatusChris CEE BLOOD ORDERABLES Final ResultPerforming OrganizationAddressCity/State/ZIP CodePhone Number [facility]) [place] [address] * Lactic acid with 4 hour reflex (06/15/2025 7:37 PM EST)ComponentValueRef Range Test MethodAnalysis TimePerformed AtPathologist SignatureLactate0.80.5 - 2.2 mmol/L108/15/2024 8:09 PM [facility])Specimen (Source) Anatomical Location / LateralityCollection Method / VolumeCollection Time Received TimeBloodVenous blood specimen / UnknownVenipuncture / Unknown 06/15/2025 7:37 PM EST06/15/2025 7:44 PM EST Narrative Authorizing ProviderResult TypeResult StatusDamaris STEPHENS-CLAB BLOOD ORDERABLESFinal ResultPerforming OrganizationAddressCity/State/ZIP CodePhone Number [facility]) [address] [place] [address] * Blood culture (06/15/2025 7:37 PM EST) Only the most recent of2 resultswithin the time period is included. ComponentValueRef RangeTest MethodAnalysis TimePerformed AtPathologist Signature Blood CultureNo growth at 5 days JOSE 06/20/2025 8:01 PM [facility] ([facility])Specimen (Source)Anatomical Location / LateralityCollection Method / VolumeCollection TimeReceived TimeBlood Venous blood specimen / UnknownVenipuncture / Wqghuxo1206/15/2025 7:37 PM EST 06/15/2025 7:44 PM EST Narrative Authorizing ProviderResult TypeResult StatusBelivory Gerard PA-CLAB MICROBIOLOGY - GENERAL ORDERABLESFinal ResultPerforming OrganizationAddressCity/State/ZIP CodePhone Number [facility] ([facility]) [address] [place] [address] * (ABNORMAL) Wound culture (06/15/2025 5:59 PM EST)ComponentValueRef RangeTest MethodAnalysis TimePerformed AtPathologist SignatureWound CultureLight Growth Enterobacter cloacae complex(A) JOSE 06/17/2025 10:36 AM [facility] ([facility])Comment:Gram Stain ResultNo polymorphonuclear leukocytes seen06/17/2025 10:36 AM [facility] ([facility])Gram Stain ResultModerate Gram negative hbcaplj6006/17/2025 10:36 AM EST [facility] ([facility])Specimen (Source)Anatomical Location / Laterality Collection Method / VolumeCollection TimeReceived TimeSwab (Leg)06/15/2025 5:59 PM EST06/15/2025 7:44 PM EST Narrative [facility] ([facility]) - 06/17/2025 10:36 AM EST With light growth consistent with skin michaela. OrganismAntibioticMethodSusceptibilityEnterobacter cloacae complexCefazolin (Non-Urine)JOSE Resistant Enterobacter cloacae complexCefepimeMIC <=1 ug/ml: Susceptible Enterobacter cloacae complexCiprofloxacinMIC <=0.25 ug/ml: Susceptible Enterobacter cloacae complexLevofloxacinMIC <=0.5 ug/ml: Susceptible Enterobacter cloacae complexMeropenemMIC <=0.5 ug/ml: Susceptible Enterobacter cloacae complexTrimethoprim + SulfamethoxazoleMIC <=0.5/9.5 ug/ml: Susceptible Enterobacter cloacae complexSusceptibility CommentMIC CEFE ug/ml Comment: Cefepime (when cefepime JOSE value is <=2 ug/ml) and meropenem (when cefepime is JOSE >=4 ug/[place] meropenem JOSE value is susceptible) are the preferred therapies for this organism due to moderate-high risk of AmpC beta-lactam production. Fluoroquinolones and trimethoprim-sulfamethoxazole may be considered as alternative intravenous or oral therapy options. Authorizing ProviderResult TypeResult StatusDamaris CIFUENTES MICROBIOLOGY - GENERAL ORDERABLESFinal ResultPerforming OrganizationAddressCity/State/ZIP CodePhone Number [facility] ([facility]) [address] [place] [address] * [facility] Lower Extremity Arterial Duplex Bypass Graft Right (06/09/2025 9:51 AM EDT)Anatomical RegionLateralityModalityLower ExtremitiesUltrasoundSpecimen (Source)Anatomical Location / LateralityCollection Method / VolumeCollection TimeReceived Time06/09/2025 9:50 AM EDT Impressions 06/10/2025 8:39 PM EDT Right: Nonvisualization of proximal and distal anastomosis due to bandage material. Inflow Common Femoral 190/27 cm/sec; multiphasic Doppler signals. Proximal bypass graft 0.72 cm; 53/11 cm/sec; multiphasic Doppler signals. Mid bypass graft 0.84 cm; 50/9 cm/sec; multiphasic Doppler signals. Distal bypass graft 0.84 cm; 47/7cm/sec; multiphasic Doppler signals. Outflow Popliteal 81/9 cm/sec; multiphasic Doppler signals. Calcified plaque with monophasic Doppler signals and no significant spectral Doppler or color flow disturbances noted in distal posterior tibial and dorsalis pedis arteries. Right: Nonvisualization of proximal and distal anastomosis due to bandage material. Inflow Common Femoral 190/27 cm/sec; multiphasic Doppler signals. ??Proximal bypass graft 0.72 cm; 53/11 cm/sec; multiphasic Doppler signals. Mid bypass graft 0.84 cm; 50/9 cm/sec; multiphasic Doppler signals. Distal bypass graft 0.84 cm; 47/7cm/sec; multiphasic Doppler signals. ??Outflow Popliteal 81/9 cm/sec; multiphasic Doppler signals. Calcified plaque with monophasic Doppler signals and no significant spectral Doppler or color flow disturbances noted in distal posterior tibial and dorsalis pedis arteries. Conclusions: Right leg: Nonvisualization of proximal and distal anastomosis due to bandage material. Patent bypass with no significant stenosis Narrative 06/10/2025 8:39 PM EDT Procedure: The lower extremity arteries evaluated using Doppler flow, color Doppler, spectral analysis and real-time arterial ultrasound. Velocities were evaluated in the adjacent arteries as well as in the graft. In the graft the areas of anastomosis proximally and distally as well as proximal, middle and distal part of the graft were evaluated using the same technique. Procedure: The lower extremity arteries evaluated using Doppler flow, color Doppler, spectral analysis and real-time arterial ultrasound. ??Velocities were evaluated in the adjacent arteries as well as in the graft. ??In the graft the areas of anastomosis proximally and distally as well as proximal, middle and distal part of the graft were evaluated using the same technique. Procedure Note Chris Andre MD - 06/10/2025 Procedure: The lower extremity arteries evaluated using Doppler flow,color Doppler, spectral analysis and real-time arterial ultrasound.Velocities were evaluated in the adjacent arteries as well as in thegraft. In the graft the areas of anastomosis proximally and distally aswell as proximal, middle and distal part of the graft were evaluated usingthe same technique. Procedure: The lower extremity arteries evaluated using Doppler flow,color Doppler, spectral analysis and real-time arterial ultrasound.Velocities were evaluated in the adjacent arteries as well as in thegraft. In the graft the areas of anastomosis proximally and distally aswell as proximal, middle and distal part of the graft were evaluated usingthe same technique. IMPRESSION: Right: Nonvisualization of proximal and distal anastomosis due to bandage material. Inflow Common Femoral 190/27 cm/sec; multiphasic Dopplersignals. Proximal bypass graft 0.72 cm; 53/11 cm/sec; multiphasic Dopplersignals. Mid bypass graft 0.84 cm; 50/9 cm/sec; multiphasic Dopplersignals. Distal bypass graft 0.84 cm; 47/7cm/sec; multiphasic Dopplersignals. Outflow Popliteal 81/9 cm/sec; multiphasic Doppler signals.Calcified plaque with monophasic Doppler signals and no significantspectral Doppler or color flow disturbances noted in distal posteriortibial and dorsalis pedis arteries. Right: Nonvisualization of proximal and distal anastomosis due to bandage material. Inflow Common Femoral 190/27 cm/sec; multiphasic Dopplersignals. Proximal bypass graft 0.72 cm; 53/11 cm/sec; multiphasic Dopplersignals. Mid bypass graft 0.84 cm; 50/9 cm/sec; multiphasic Dopplersignals. Distal bypass graft 0.84 cm; 47/7cm/sec; multiphasic Dopplersignals. Outflow Popliteal 81/9 cm/sec; multiphasic Doppler signals.Calcified plaque with monophasic Doppler signals and no significantspectral Doppler or color flow disturbances noted in distal posteriortibial and dorsalis pedis arteries. Conclusions: Right leg: Nonvisualization of proximal and distal anastomosis due to bandagematerial. Patent bypass with no significant stenosis Authorizing ProviderResult TypeResult Heri DAVIS CV VASCULAR PROCEDURESFinal Result * Invasive vascular procedure (06/07/2025 6:16 PM EDT)Anatomical Region LateralityModalityOtherSpecimen (Source)Anatomical Location / Laterality Collection Method / VolumeCollection TimeReceived Time Narrative 06/07/2025 7:49 PM EDT This order was resulted via OpNote or Post Procedure Note. If those notes are not displayed in this report, please refer to the Notes tab. Authorizing ProviderResult TypeResult Barron Andre MDCV INVASIVE VASCULAR PROCEDURESFinal Result * (ABNORMAL) POCT activated clotting time (06/07/2025 5:44 PM EDT)ComponentValue Ref RangeTest MethodAnalysis TimePerformed AtPathologist SignatureActivated Clotting Time DEQ550(H)82 - 152 sec06/10/2025 12:10 AM [facility] ([place])Specimen (Source)Anatomical Location / LateralityCollection Method / VolumeCollection TimeReceived TimeBloodVenous blood specimen / Unknown 06/07/2025 5:44 PM EDT1 12:10 AM EDT Narrative Authorizing ProviderResult TypeResult Barron Andre MDLAB POINT OF CARE TEST DOCKED DEVICE UNSOLICITED RESULTSFinal ResultPerforming OrganizationAddress City/State/ZIP CodePhone Number [facility] ([place]) [address] [place] [address] * Histology - tissue exam (06/07/2025 5:44 PM EDT)ComponentValueRef RangeTest MethodAnalysis TimePerformed AtPathologist SignatureCase ReportSurgical Pathology ?Case: [id number] ? Authorizing Provider: ??Chris Andre MD ?Collected: ? 06/07/2025 1744 ? Ordering Location: ? [facility] Main Operating Room ?? Received: ?06/08/2025 0806 ? Pathologist: ? Pop Salinas MD ? Specimen: ?Groin, Right ??Common femoral artery , Profunda Artery Plaque and others ? 06/11/2025 8:24 AM [facility] ([place])Final DiagnosisA. Right common femoral artery and profunda artery plaque, endarterectomy: - Calcified atherosclerotic plaque with osteoid metaplasia.06/11/2025 8:24 AM [facility] ([place]) at 0824 EDTClinical InformationPost-Op Diagnoses M79.604, M79.605 - Lower extremity pain, bilateral [ICD-10-CM] I73.9 - Severe claudication [ICD-10-CM] Z01.818 - Encounter for pre-operative examination [ICD-10-CM] 06/11/2025 8:24 AM [facility] ([facility])Gross DescriptionA. Groin. Received in formalin labeled You Garcia, Groin, Tissue, Right Common femoral artery, Profunda Artery Plaque and others, 5 wells-white, soft to partially calcified fragments of soft tissue measuring 3.7 x 2.4 x 1.3 cm in aggregate. One of the fragments is tubular, measuring 2.2 cm in length and up to 0.9 cm in diameter with 40-50% luminal narrowing. Manager Of Disaster Recovery sections have been submitted in one cassette following decalcification. The remainder of the specimen is contained within its formalin container. Rom Iglesias, PGY-210 8:24 AM [facility] ([facility])Microscopic DescriptionMicroscopic examination performed.06/11/2025 8:24 AM [facility] ([facility])Specimen (Source)Anatomical Location / LateralityCollection Method / VolumeCollection TimeReceived TimeTissue (Groin)06/07/2025 5:44 PM EDT 06/08/2025 8:06 AM EDTComment:Pre-op diagnosis: Lower extremity pain, bilateral [M79.604, M79.605] Severe claudication [I73.9] Encounter for pre-operative examination [Z01.818] Narrative Authorizing ProviderResult TypeResult StatusMunier Jes CEE PATHOLOGY ORDERABLESFinal ResultPerforming OrganizationAddressCity/State/ZIP CodePhone Number [facility] ([facility]) [address] [place] [address] * (ABNORMAL) Arterial Blood Gas Complete (06/07/2025 5:43 PM EDT)ComponentValue Ref RangeTest MethodAnalysis TimePerformed AtPathologist SignaturepH, Arterial 7.417.35 - 7.451 5:43 PM EDTUT RESPIRATORY THERAPYpCO2, Hfjfnavv09 35 - 45 mmHg06/07/2025 5:43 PM EDTUT RESPIRATORY THERAPYpO2, Qpwmrjga61(L)83 - 108 mmHg06/07/2025 5:43 PM EDTUT RESPIRATORY THERAPYHCO3, Jhnqvxco35.5 21.0 - 28.0 mmol/L10 5:43 PM [facility] RESPIR[facility] THERAPYO2 Sat, Ytogblfj09.594.0 - 100.0 %06/07/2025 5:43 PM [facility] RESPIRATORY THERAPYBase Excess, Arterial-0.9-2.0 - 3.0 mmol/L1 5:43 PM [facility] RESPIRATORY THERAPYCalcium Ionized, Arterial1.49(H)1.13 - 1.32 mmol/L1 5:43 PM [facility] RESPIRATORY THERAPYSodium, Tcwohhtm646861 - 146 mmol/L1 5:43 PM [facility] RESPIRATORY THERAPYPotassium, Arterial4.43.4 - 5.2 mmol/L1 5:43 PM [facility] RESPIRATORY THERAPYChloride, Smcdtnae617(H)98 - 107 mmol/L 06/07/2025 5:43 PM [facility] RESPIRATORY THERAPYGlucose, Jlivjivj007(H)65 - 95 mg/dL06/07/2025 5:43 PM [facility] RESPIRATORY THERAPYLactate, Arterial1.100.36 - 1.39 mmol/L1 5:43 PM [facility] RESPIRATORY THERAPYHematocrit, Arterial 31(L)37 - 50 %06/07/2025 5:43 PM [facility] RESPIRATORY THERAPYHemoglobin, Jcejzzdl32.4g/dL06/07/2025 5:43 PM [facility] RESPIRATORY THERAPYOxyhemoglobin, Dezwhhsp80.694.0 - 97.0 %06/07/2025 5:43 PM [facility] RESPIRATORY THERAPY Methemoglobin, Arterial0.80.0 - 1.5 %06/07/2025 5:43 PM [facility] RESPIRATORY THERAPYCarboxyhemoglobin, Arterial2.1%06/07/2025 5:43 PM [facility] RESPIRATORY THERAPYDeoxyhemoglobin, Arterial2.4%06/07/2025 5:43 PM [facility] RES[facility]ORY DYQBKFVFifaplwjmnp70.0??06/07/2025 5:43 PM [facility] RESPIR[facility]ORY THERAPYPF Ratio06/07/2025 5:43 PM [facility] RESPIRATORY THERAPYComment:C^Incalculable A-uIs21806/07/2025 5:43 PM [facility] RESPIRATORY THERAPYComment:C^Incalculable paO2/rOX96406/07/2025 5:43 PM [facility] RESPIRATORY THERAPYComment:C^Incalculable Specimen (Source)Anatomical Location / LateralityCollection Method / Volume Collection TimeReceived TimeBloodArterial blood specimen / Ljaxhhu1806/07/2025 5:43 PM EDT1 5:43 PM EDT Narrative Authorizing ProviderResult TypeResult StatusChris CEE BLOOD ORDERABLES Final ResultPerforming OrganizationAddressCity/State/ZIP CodePhone Number [facility] RESPIRATORY THERAPY [address] [place] [address], * NM AN ELECTIVE ENDOTRACHEAL AIRWAY (06/07/2025 3:09 PM EDT) Narrative Judith Malloy MD - 06/07/2025 3:09 PM EDT Judith Malloy MD 06/07/2025 3:49 PM Airway Date/Time: 06/07/2025 3:09 PM Reason: elective Airway not difficult General Information and Staff Patient location during procedure: OR Anesthesiologist: Judith Malloy MD Resident/NEEDLE POLISHER/CAA: Young Carcamo MD Performed: resident/NEEDLE POLISHER/MATHIEU Patient Condition Indications for airway management: anesthesia Patient position: sniffing Sedation level: deep Final Airway Details Preoxygenated: yes Final airway type: endotracheal airway Successful airway: ETT Cuffed: yes Successful intubation technique: video laryngoscopy Endotracheal tube insertion site: oral Blade: Lopez Blade size: #3 ETT size (mm): 7.5 Cormack-Lehane Classification: grade I - full view of glottis Placement verified by: chest auscultation and capnometry Measured from: lips ETT to lips (cm): 22 Number of attempts at approach: 1 Number of other approaches attempted: 0 Authorizing ProviderResult TypeResult StatusJudith Malloy MDANESTHESIA ORDERABLESFinal Result * ANESTHESIA ARTERIAL LINE PLACEMENT (06/07/2025 12:38 PM EDT) Narrative Judith Malloy MD - 06/07/2025 12:38 PM EDT Judith Malloy MD 06/07/2025 3:59 PM Arterial Line: Date/Time: 06/07/2025 12:38 PM An arterial line was placed Procedure performed using surface landmarks.in the pre-op for the following indication(s): continuous blood pressure monitoring and blood sampling needed. A 20 G (size) (length), Angiocath (type) catheter was placed, Seldinger technique used , into the Right radial artery, secured by Tegaderm and tape. Events: patient tolerated procedure well with no complications. Additional notes: Sterile precautions used, including: Gloves, Hat, Mask, Skin prep, Sterile drape, VSS. Staffing Performed: resident/NEEDLE POLISHER/CAA Anesthesiologist: Judith Malloy MD Resident/NEEDLE POLISHER: Young Carcamo MD Performed by: Young Carcamo MD Authorized by: Judith Malloy MD ?? Authorizing ProviderResult TypeResult StatusRavindersarah Malloy MDANESTHESIA ORDERABLESEdited Result - Final * (ABNORMAL) Urinalysis with microscopic (05/26/2025 2:54 PM EDT)ComponentValue Ref RangeTest MethodAnalysis TimePerformed AtPathologist SignatureColor, Urine Light-YellowColorless, Yellow, Light-Nflyge2605/26/2025 4:25 PM [facility] ([facility])Clarity, ZjmrrBqwuxKhdrt72/15/2025 4:25 PM [facility] ([facility])Specific [place], Urine1.004(L)1.010 - 1.8178405/26/2025 4:25 PM [facility] ([facility])pH, Urine5.55.0 - 8.0 pH05/26/2025 4:25 PM [facility] ([facility])Leukocytes, KtmiiNbztnsxhAmdsfbvk06/15/2025 4:25 PM EDT [facility] ([facility])Nitrite, FoildEzhyiactHbttxzlb62/15/2025 4:25 PM EDT [facility] ([facility])Protein, UrineNegativeNegative mg/dL05/26/2025 4:25 PM [facility] ([facility])Glucose, UrineNormalNormal mg/dL05/26/2025 4:25 PM [facility] ([facility])Bilirubin, UrineNegativeNegative 05/26/2025 4:25 PM [facility] ([facility])Ketones, UrineNegativeNegative mg/dL05/26/2025 4:25 PM [facility] ([facility])Urobilinogen, Urine NormalNormal mg/dL05/26/2025 4:25 PM [facility] ([facility])Blood, Urine RlaigzliTfbfucyz57/15/2025 4:25 PM [facility] ([facility])RBC, UrineNone SeenNone Seen, 0-2 /HPF05/26/2025 4:25 PM [facility] ([facility])WBC, UrineNone SeenNone Seen, 0-2 /HPF05/26/2025 4:25 PM [facility] ([facility])Squamous Epithelial, UrineOccasionalNone Seen, Occasional, Few /LPF 05/26/2025 4:25 PM [facility] ([facility])Specimen (Source)Anatomical Location / LateralityCollection Method / VolumeCollection TimeReceived Time UrineUrine specimen obtained by clean catch procedure / UnknownNon-blood Collection / Iylwbkx4905/26/2025 2:54 PM EDT1 3:48 PM EDT Narrative Authorizing ProviderResult TypeResult StatusZujaimie CEE URINE ORDERABLES Final ResultPerforming OrganizationAddressCity/State/ZIP CodePhone Number [facility] ([facility]) [address] [place] [address] * (ABNORMAL) Microalbumin, urine, random (05/26/2025 2:54 PM EDT)ComponentValue Ref RangeTest MethodAnalysis TimePerformed AtPathologist SignatureMicroalb, Ur <1mg/dL05/26/2025 4:34 PM [facility] ([facility])Microalb/Creat Ratio 05/26/2025 4:34 PM [facility] ([facility])Comment:Unable to calculate Creatinine, Ur24.0(L)26 - 299 mg/dL05/26/2025 4:34 PM [facility] ([facility])Specimen (Source)Anatomical Location / LateralityCollection Method / VolumeCollection TimeReceived TimeUrineUrine specimen obtained by clean catch procedure / UnknownNon-blood Collection / Nwwaocs3905/26/2025 2:54 PM EDT 05/26/2025 3:48 PM EDT Narrative Authorizing ProviderResult TypeResult StatusBatsheva CEE URINE ORDERABLES Final ResultPerforming OrganizationAddressCity/State/ZIP CodePhone Number [facility] ([facility]) [address] [place] [address] * (ABNORMAL) Creatinine, urine, random (05/26/2025 2:54 PM EDT)ComponentValueRef RangeTest MethodAnalysis TimePerformed AtPathologist SignatureCreatinine, Ur 24.0(L)26 - 299 mg/dL05/26/2025 4:34 PM [facility] ([facility])Specimen (Source)Anatomical Location / LateralityCollection Method / VolumeCollection TimeReceived TimeUrineUrine specimen obtained by clean catch procedure / UnknownNon-blood Collection / Qhjyyxq3305/26/2025 2:54 PM EDT1 3:48 PM EDT Narrative Authorizing ProviderResult TypeResult StatusBatsheva CEE URINE ORDERABLES Final ResultPerforming OrganizationAddressCity/State/ZIP CodePhone Number [facility] ([facility]) [address] [place] [address] * Vitamin D 25 hydroxy (05/26/2025 2:54 PM EDT)ComponentValueRef RangeTest MethodAnalysis TimePerformed AtPathologist SignatureVit D, 25-Lfafiho71.030.0 - 80.0 ng/mL05/26/2025 4:48 PM [facility] ([facility])Comment:>80.0 Toxicity possibleSpecimen (Source)Anatomical Location / LateralityCollection Method / VolumeCollection TimeReceived TimeBloodVenous blood specimen / UnknownVenipuncture / Yfbnxox3705/26/2025 2:54 PM EDT1 3:52 PM EDT Narrative Authorizing ProviderResult TypeResult StatusBatsheva CEE BLOOD ORDERABLES Final ResultPerforming OrganizationAddressCity/State/ZIP CodePhone Number [facility] ([facility]) [address] [place] [address] * PTH, intact (05/26/2025 2:54 PM EDT)ComponentValueRef RangeTest MethodAnalysis TimePerformed AtPathologist XwieqggfkIVK6854 - 88 pg/mL05/26/2025 7:13 PM EDT [facility] ([facility])Specimen (Source)Anatomical Location / Laterality Collection Method / VolumeCollection TimeReceived TimeBloodVenous blood specimen / UnknownVenipuncture / Iidprub8405/26/2025 2:54 PM EDT1 3:52 PM EDT Narrative Authorizing ProviderResult TypeResult StatusZujaimie CEE BLOOD ORDERABLES Final ResultPerforming OrganizationAddressCity/State/ZIP CodePhone Number [facility]) [address] [place] [address] * MRSA/MSSA DNA Nasal (05/24/2025 2:48 PM EDT)ComponentValueRef RangeTest Method Analysis TimePerformed AtPathologist SignatureMSSA DNANegativeNegative 05/25/2025 1:50 PM [facility])MRSA DNANegativeNegative 05/25/2025 1:50 PM [facility] ([facility])Specimen (Source)Anatomical Location / LateralityCollection Method / VolumeCollection TimeReceived Time SwabNasal structure / UnknownNon-blood Collection / Ytzmxgi2105/24/2025 2:48 PM EDT1 3:24 PM EDT Narrative [facility] ([facility]) - 05/25/2025 1:50 PM EDT Testing methodology is an automated qualitative in vitro diagnostic test for the direct detection and differentiation of Staphylococcus aureus (SA) DNA and methicillin- resistant Staphylococcus aureus (MRSA) DNA from nasal swabs in patients at risk for nasal colonization. The test utilizes real-time polymerase chain reaction (PCR) for the amplification of MRSA/SA DNA and fluorogenic target-specific hybridization probes for the detection of the amplified DNA. A negative result does not preclude nasal colonization. Authorizing ProviderResult TypeResult StatusChris CEE MICROBIOLOGY - GENERAL ORDERABLESFinal ResultPerforming OrganizationAddressCity/State/ZIP Code Phone Number [facility] ([facility]) [address] [facility] [place] [place] [address] * CORONARY ANGIOGRAPHY, CORONARY BYPASS GRAFT STUDY (05/11/2025 12:47 PM EDT) Anatomical RegionLateralityModalityOtherSpecimen (Source)Anatomical Location / LateralityCollection Method / VolumeCollection TimeReceived Time Narrative 05/11/2025 1:11 PM EDT Cardiovascular Laboratory Report FINAL IMPRESSIONS: ?? Severe, three-vessel [place] coronary artery disease There are 2 out of 3 bypass graft patent; the saphenous vein graft to the posterior descending branch is known to be occluded Mildly reduced global left ventricular systolic function by noninvasive imaging RECOMMENDATIONS: ?? The patient is at acceptable moderate risk to proceed with vascular bypass surgery as scheduled; recommend strict heart rate and blood pressure control and avoidance of major fluid shifts perioperatively Aggressive cardiovascular is factor modification Optimal medical therapy for coronary artery disease should include dual antiplatelet therapy, moderate intensity statin therapy, a beta-kelsy and a RAAS inhibitor if feasible Guideline directed medical therapy for heart failure with midrange ejection fraction should include a beta-kelsy, RAAS inhibitor/Entresto, and SGLT2 inhibitor and spironolactone; his chronic kidney disease is prohibitive-we will stop hydralazine/nitrate combination and lieu of a RAAS inhibitor Follow-up with Dr. Tolliver in the next 2-3 months PROCEDURES: ??Ultrasound-guided access to the left common femoral artery, limited femoral angiography, bilateral selective coronary angiography, radial artery graft angiography, angiography of the left internal mammary artery graft, angiography of the left subclavian artery METHODS: After risks, benefits, and alternatives were explained, written informed consent was obtained. ??The patient was prepped and draped in usual sterile fashion over both groins. Using 1% lidocaine solution, local infiltration anesthesia was achieved. ?? Using a modified Seldinger technique, a micropuncture kit, and under ultrasound guidance, access to the left common femoral artery was obtained. Angiography via the inner cannula of the micropuncture kit was performed.The micropuncture kit was upsized to a 6 Persian 11 cm sheath. Bilateral selective coronary angiography was performed using JL4 and JR4 catheters. ??The JR4 was used in attempts to cannulate and image the saphenous vein graft. ??It was used to cannulate the left subclavian and exchanged out for an IM catheter. ??Angiography of internal mammary artery graft was performed. Angiography of the left subclavian artery was performed. After reviewing the images, it was elected to conclude the procedure. All catheters were removed. The femoral sheath was removed with application of manual pressure to achieve optimal hemostasis. Overall the patient tolerated the procedure well. ??There were no overt complications. ??He was to be transferred to his hospital room in stable condition. FINDINGS: ?? Hemodynamics: AO 145/82 [87] LEFT VENTRICULOGRAPHY: This was not performed; ejection fraction is 45% by noninvasive imaging CORONARY ARTERIES: ?? Left main coronary artery: This arises from the left coronary cusp and is occluded in the distal portion. Left anterior descending coronary artery: ??This is seen via filling from the left internal mammary artery graft; the distal vessel shows mild diffuse plaque. Left circumflex coronary artery:This is a codominant vessel giving rise to posterolateral branches. ??It is seen via retrograde filling via a patent radial artery graft. There are luminal irregularities in the obtuse marginal and the true circumflex. ??Retrograde filling extends almost to the left main. Right coronary artery: This appears to be a small caliber codominant vessel giving rise to the posterior descending branch. ??It is diffusely diseased with calcific 70 to 80% stenosis in the proximal and midportion followed by what appears to be occlusion distally. GRAFT ANGIOGRAPHY: ?? Left internal mammary artery graft to the left anterior descending: This is widely patent. Radial artery graft to the obtuse marginal: ??This is widely patent. Saphenous vein graft to the posterior descending artery: This is known to be occluded. Left subclavian artery: ??This shows no significant stenotic or aneurysmal segments. Limited femoral angiography: This shows calcific plaque. ??Manual pressure was held for hemostasis INDICATIONS: ??Abnormal stress test, reduced ejection fraction, preoperative evaluation Coronary Findings Diagnostic Dominance: Co-dominant No diagnostic findings have been documented. Intervention No interventions have been documented. Authorizing ProviderResult TypeResult StatusEhab EltaNortheast Kansas Center for [facility] CARDIAC CATH PROCEDURESFinal Result * Electrocardiogram, 12-lead (05/11/2025 8:08 AM EDT)ComponentValueRef RangeTest MethodAnalysis TimePerformed AtPathologist SignatureVentricular Ovld17JVURR MUSEAtrial Ewqn66JXPPO MUSEPR Ecgxzymn350ngRG MUSEQRS FCCMTPQV803ptHT MUSEQT Kshnizeu837vbCQ MUSEQTC CALCULATION(BAZETT)466msGE MUSEP Qoup97tlugbmhKS MUSE O-Tiaf-63etjidanTN MUSET Wave Vjsb25zzhfojqIK MUSESpecimen (Source)Anatomical Location / LateralityCollection Method / VolumeCollection TimeReceived Time 05/11/2025 7:45 AM EDT05/11/2025 11:35 PM EDT Impressions GE MUSE - 05/11/2025 11:35 PM EDT Sinus bradycardia Intra-ventricular conduction delay Nonspecific ST and T wave abnormality Abnormal ECG When compared with ECG of 08-APR-2025 07:50, no significant changes was noted Confirmed by Saqib Saldana ([id number]) on 05/11/2025 11:35:47 PM Narrative Procedure Note Jessie Cope MD - 05/11/2025 IMPRESSION: Sinus bradycardia Intra-ventricular conduction delay Nonspecific ST and T wave abnormality Abnormal ECG When compared with ECG of 08-APR-2025 07:50, no significant changes was noted Confirmed by Saqib Saldana ([id number]) on 05/11/2025 11:35:47 PM Authorizing ProviderResult TypeResult StatusEhab Sharee LOWE ORDERABLESFinal ResultPerforming OrganizationAddressCity/State/ZIP CodePhone Number GE MUSE * Complete Echo (TTE) w/wo Imaging Agent, Strain, 3D, Bubble Study (04/27/2025 5:03 PM EDT)Anatomical RegionLateralityModalityUltrasound Narrative Authorizing ProviderResult TypeResult StatusHistorical Provider [facility] ECHO PROCEDURESFinal Result * Lexiscan Stress Myocardial Perfusion Imaging (04/20/2025 3:22 PM EDT) Anatomical RegionLateralityModalityOther Narrative Authorizing ProviderResult TypeResult StatusHistorical Provider [facility] STRESS PROCEDURESFinal Result * CT transfer of outside films (04/15/2025 12:00 AM EDT)Specimen (Source) Anatomical Location / LateralityCollection Method / VolumeCollection Time Received Time Narrative IMAGING - 04/15/2025 9:57 AM EDT This order has been auto-finalized and does not contain a result. Authorizing ProviderResult TypeResult StatusMunier Jes LEMONIMDavid CT PROCEDURES Final ResultPerforming OrganizationAddressCity/State/ZIP CodePhone Number IMAGING from Last 3 Months Insurance Advance Directives * Full Code (Latest Code Status on File) Date ActivatedDate OldljrfkemoXeirgxpu21/18/2025 4:23 AM07/01/2025 8:53 PM * Full Code Date ActivatedDate RkyxohlsxkyCxhxyrgx86/4/2025 9:45 PM06/19/2025 9:53 PM * Full Code Date ActivatedDate GuksorckmoxSpsgfuyo35/27/2025 5:10 PM10 9:30 PM * Full Code Date ActivatedDate InactivatedComments05/11/2025 12:48 PM05/11/2025 8:03 PM Care Teams Team MemberRelationshipSpecialtyStart DateEnd Date Susan Watson MD [facility] [place] [address] PCP - GeneralNurse Practitioner10/13/24
--- OUTSIDE RECORDS SUMMARY | 2025-07-12 13:05 | XMS_ITS | Clinical Summary ---
Author Organization [facility] Address [address] [place] [id number] Care Team Providers Care Director Educational Radio Name Role Phone Thomas Hurtado MD Unavailable Susan Watson CNP Primary Care Provider [phone] Allergies No known active allergies Medications * This document contains information received from the source organization and may not represent a complete record from that organization. MedicationSigDispense QuantityRefillsLast FilledStart DateEnd DateStatus albuterol HFA (PROVENTIL HFA, VENTOLIN HFA) 90 mcg/actuation inhaler INHALE 1 PUFF BY MOUTH EVERY 4 HOURS FCYJED3512/02/2021ctive amLODIPine (NORVASC) 5 mg tablet amlodipine 5 mg tablet TAKE 1 TABLET BY MOUTH EVERY DAYActive aspirin, enteric coated (ASPIRIN, ENTERIC COATED) 81 mg EC tablet q 24 HR.Active atorvastatin (LIPITOR) 80 mg tablet atorvastatin 80 mg tablet TAKE 1 TABLET BY MOUTH EVERY DAYActive buPROPion XL (WELLBUTRIN XL) 300 mg 24 hr tablet bupropion HCl XL 300 mg 24 hr tablet, extended release TAKE 1 TABLET BY MOUTH EVERY DAY IN THE MORNINGActive busPIRone (BUSPAR) 15 mg tablet buspirone 15 mg tablet TAKE 1 TABLET BY MOUTH TWICE DAILYActive clopidogrel (PLAVIX) 75 mg tablet clopidogrel 75 mg tablet TAKE 1 TABLET BY MOUTH AT BEDTIMEActive famotidine (PEPCID) 20 mg tablet famotidine 20 mg tablet TAKE 1 TABLET BY MOUTH EVERY DAY AT BEDTIME NEEDEDActive Fenofibrate Micronized 43 mg capsule Take 43 mg by mouth twice daily.12/15/2021ctive isosorbide mononitrate ER (IMDUR) 60 mg 24 hr tablet isosorbide mononitrate ER 60 mg tablet,extended release 24 hr TAKE 1 TABLET BY MOUTH EVERY MORNINGActive metoprolol succinate ER (TOPROL XL) 50 mg 24 hr tablet metoprolol succinate ER 50 mg tablet,extended release 24 hr TAKE 1 TABLET BY MOUTH TWICE DAILYActive nitroglycerin sublingual (NITROQUICK) 0.4 mg SL tablet nitroglycerin 0.4 mg sublingual tabletActive sertraline (ZOLOFT) 100 mg tablet sertraline 100 mg tablet TAKE 1 AND 1/2 TABLETS BY MOUTH EVERY DAYActive omega 8-oxt-bbd-fish oil (FISH OIL) 100-160-1,000 mg cap Take by mouth.Active traZODone (DESYREL) 100 mg tablet Take 100 mg by mouth daily at bedtime.08/10/2022ctive furosemide (LASIX) 20 mg tablet Take 1 tablet by mouth every morning. 30 tablet 1105Active empagliflozin (JARDIANCE) 10 mg tablet Take 1 tablet by mouth daily with breakfast. 30 tablet 1105Active Active Problems ProblemNoted DateDiagnosed DateRecurrent major depression in partial remission 04/12/2022MCI (mild cognitive impairment)2Dyspnea and respiratory vldeimnwdgvif97/01/2022 Overview (02/09/2022): 66 pk/yr history of smoking. Quit in 1994, when diagnosed with NSCLC and treated with RULobectomy and XRT. Also has extensive coronary disease, with CABG. Sees cardiology at [facility]. Anxiety, HTN, CKD IIIb. PCP started albuterol [...] JITENDRA. Limiited pulmonary reserve. Cardiac disease. PLAN: ?? PSG in lab to diagnose JITENDRA if present. ?? Pulmonary rehabilitation. ?? Referral to folder and notcher here, at his request. ?? Echocardiogram. ?? Stop advair and breo today and start spiriva. His COPD classification would indicate a LAMA onlyfor most patients. Encounters DateTypeDepartmentCare WcukDhtzdecymku74/18/2025 11:00 AM EDTOffice Visit Neurology [address] [id number] Ebony Henderson, Memory loss (Primary Dx); Tension headachefrom Last 3 Months Social History Tobacco UseTypesPacks/DayYears UsedDateSmoking Tobacco: NeverSmokeless Tobacco: FormerChewQuit: 07/14/2022 Tobacco Cessation:Counseling Given: Not Answered Alcohol UseStandard Drinks/WeekCommentsNot Currently0 (1 standard drink = 0.6 oz pure alcohol)PHQ-2AnswerDate RecordedPHQ-2 /04/2025Area Deprivation IndexAnswerDate RecordedNational Score (1-100), lower number is lower risk87 05/16/2023State Score (1-10), lower number is lower nomn9413Data from: https://www.neighborhoodatlas.medicine.[facility].edu/. Last address used for wr[address]sp[address]05/16/2023Sex and Gender InformationValueDate Recorded Sex Assigned at BirthNot on fileLegal WaeXndz7312/05/2021 11:57 AM EDTGender IdentityNot on fileSexual OrientationNot on file Last Filed Vital Signs Vital SignReadingTime TakenCommentsBlood Byhgabia017/6209 11:06 AM EDT Sdewu9493/18/2025 11:06 AM LNYAccecanmqsk43.4 ??C (97.5 ??F)02/09/2022 11:04 AM EDTRespiratory Iadb461302/09/2022 11:04 AM EDTOxygen Uzkmhneqsx75%04/01/2025 2:14 PM EDTInhaled Oxygen Concentration--Pkluih50.6 kg (160 lb)04/29/2025 11:06 AM EDTper hganttkSdqhlt801.6 cm (5' 6 )04/01/2025 2:14 PM EDTBody Mass Index25.82 04/01/2025 2:14 PM EDT Plan of Treatment Health MaintenanceDue DateLast DoneCommentsAnnual PCP Team Chronic Disease Visit 1971Anxiety Ancdirizr72/17/1971Hepatitis C Cpdjfyzsl42/17/1971LDL Oxqlkpxselp11/17/1971DTaP,Tdap,Td Vaccine (1 - Tdap)1972CT Colonography 1998Cologuard (FIT-DNA)04/28/19986975Ywgcfuvkpoe64/17/1998Colorectal Cancer Zehncmgve39/17/1998Fecal Occult Blood04/28/19980428Vmederhswxkvf92/17/1998Shingrix Vaccine (1 of 2)2003RSV Vaccine (1 - Risk 60-74 years 1-dose series) 2013dvance Directive Oiwwpvnslj37/01/2025Medicare Advantage Annual Wellness Visit5Covid-19 Vaccine ( season)2025 08/06/2021, 11/08/2020, 10/19/2020Influenza Vaccine (#1), 08/03/2020Serum Teumchbtbw30/28/10063104/08/2025, 01/12/2025, 10/20/2024, Additional history existsDiabetes Dirjmnbxr81, 05/19/2021, 10/02/2019Lipid Xreevddww94, 4Pneumococcal Vaccine: 50+Lqbowzmwn12/23/2020, 08/27/2019 Goals GoalPatient Goal TypeAssociated ProblemsRecent ProgressPatient-Stated?Author Blood Pressure < 130/80 Blood Veadewir559/62(04/29/2025 11:06 AM EDT)Michael Garcia MD Insurance Care Teams Team MemberRelationshipSpecialtyStart DateEnd Date Susan Watson CNP [address] [place] [address] PCP - GeneralFamily Medicine04/01/25 Thomas Hurtado MD [address] [place] [address] NI Referring TeamPsychiatry12/21/21
--- OUTSIDE RECORDS SUMMARY | 2025-07-12 13:05 | XMS_ITS | Encounter Summary ---
Author Organization [facility] Address [address] [place] [address] Care Team Providers Care Investigator Internal Revenue Name Role Phone Susan Watson MD Primary Care Provider [phone] Encounter Details DateTypeDepartmentCare Team (Latest Contact Info)Xhalbbsyjpz33/19/2025Travel Social History Tobacco UseTypesPacks/DayYears UsedDateSmoking Tobacco: FormerCigarettes Smokeless Tobacco: CurrentChewAlcohol UseStandard Drinks/WeekCommentsNot Currently0 (1 standard drink = 0.6 oz pure alcohol)PHQ-2AnswerDate Recorded Patient Health Questionnaire-2 Kbzlz19908/14/2024Humiliation, Afraid, Rape, and Kick questionnaireAnswerDate RecordedWithin the [...] times a week06/15/2025How often do you attend mandaeism or moravian services?Never06/15/2025Do you belong to any clubs or organizations such as mandaeism groups, unions, fraternal or athletic groups, or school groups?No06/15/2025How often do you attend meetings of the clubs or organizations you belong to?Never06/15/2025re you , , , , never , or living with a partner?Huyawrvxz03/04/2025UDIT-C AnswerDate RecordedQ1: How often do you have [...] medical care, and heating?Not hard at all06/29/2025 [place] of Occupational Health - Occupational Stress Questionnaire AnswerDate RecordedDo you feel stress - tense, restless, nervous, or anxious, or unable to sleep at night because yourmind is troubled all the time - these days? Only a skwxqf4006/15/2025HC UtilitiesAnswerDate RecordedIn the past 12 months has the [employer], gas, oil, or water J[employer] threatened to shut off services in your [...] were you homeless or living in a chcf (including now)?No06/29/2025Hunger Vital SignAnswerDate Recorded Within the past 12 months, you worried that your food would run out before you got the money to buymore.Never true06/29/2025Within the past 12 months, the food you bought just didn't last and you didn't have money to get more.Never true 06/29/2025Sex and Gender InformationValueDate RecordedSex Assigned at BirthMale 04/08/2025 7:15 AM EDTLegal AxyAoff2702/07/2022 10:15 PM EDTGender IdentityMale 04/08/2025 7:15 AM EDTSexual OrientationHeterosexual or Ralmgruy57/28/2025 7:15 AM EDTdocumented as of this encounter Plan of Treatment DateTypeDepartmentCare Team (Latest Contact Info)Rqhxosdcxgs71/08/2025 1:45 PM ESTFollow-Up [facility] Vascular and Endovascular Surgery [address] [place] [address] Nadia Sheppard PA-C [address] [facility], [address] [place] [address] 07/22/2025 9:30 AM ESTFollow-Up [facility] [address] [place] [address] Sarah Tolliver MD [address] [facility] [address] [facility] [place] [address] 07/29/2025 2:30 PM ESTFollow-Up [facility] Medical [facility] Gastroenterology [address] [place] [address] Ebony Estevez, TOUR COORDINATOR [address] [place], [place] [phone] 08/23/2025 7:30 AM ESTHospital Encounter [facility] Main Operating Room [address] [facility] [place] [address] Chris Andre MD [address] [place] [address] 08/23/2025 7:30 AM EST - 08/23/2025 11:00 AM ESTSurgery [facility] Main Operating Room [address] [place] [address] Chris Andre MD [address] [place] [address] ENDARTERECTOMY, FEMORAL WITH POSSIBLE FEM TO POP OENGGF5609/21/2025 11:00 AM EST Follow-Up [facility] Nephrology [address] [facility] [place] [address] Batsheva Beckwith MD [address] [facility] 2 [facility] [place] [address] NamePriorityAssociated DiagnosesDate/TimeENDARTERECTOMY, FEMORAL Peripheral arterial occlusive disease Encounter for pre-operative examination 08/23/2025 7:30 AM ESTdocumented as of this encounter Goals GoalPatient Goal TypeAssociated ProblemsRecent ProgressPatient-Stated?Author Blood Pressure < 140/90 Blood Kdkrtpqk126/78(07/06/2025 12:48 PM EST)Cy Child, JOHANAdocumented as of this encounter Visit Diagnoses Not on filedocumented in this encounter Care Teams Team MemberRelationshipSpecialtyStart DateEnd Date Susan Watson MD [address] [place] [address] PCP - GeneralNurse Practitioner10/13/24documented as of this encounter
--- OUTSIDE RECORDS SUMMARY | 2025-07-12 13:06 | XMS_ITS | Encounter Summary ---
Author Organization [facility] Address [address] [place] [address] Care Team Providers Care Jig Builder Name Role Phone Susan Watson MD Primary Care Provider [phone] Reason for Visit * ReasonOnset DateCommentsHospital Follow-up07/02/2025 Encounter Details DateTypeDepartmentCare Team (Latest Contact Info)Jvphmoeijic39/21/2025Telephone [facility] [address] [place] [phone] Brianne Morales, JOHANA Hospital Follow-up Social History Tobacco UseTypesPacks/DayYears UsedDateSmoking Tobacco: FormerCigarettes Smokeless Tobacco: CurrentChewAlcohol UseStandard Drinks/WeekCommentsNot Currently0 (1 standard drink = 0.6 oz pure alcohol)PHQ-2AnswerDate Recorded Patient Health Questionnaire-2 Yhbah74608/14/2024Humiliation, Afraid, Rape, and Kick questionnaireAnswerDate RecordedWithin the [...] times a week06/15/2025How often do you attend religious or sabianism services?Never06/15/2025Do you belong to any clubs or organizations such as religious groups, unions, fraternal or athletic groups, or school groups?No06/15/2025How often do you attend meetings of the clubs or organizations you belong to?Never06/15/2025re you , , , , never , or living with a partner?Ppcybpnvu69/04/2025UDIT-C AnswerDate RecordedQ1: How often do you have [...] medical care, and heating?Not hard at all06/29/2025 [facility] of Occupational Health - Occupational Stress Questionnaire AnswerDate RecordedDo you feel stress - tense, restless, nervous, or anxious, or unable to sleep at night because yourmind is troubled all the time - these days? Only a ikpriw8506/15/2025HC UtilitiesAnswerDate RecordedIn the past 12 months has the [employer], gas, oil, or water aihuishou threatened to shut off services in your [...] Assigned at BirthMale 04/08/2025 7:15 AM EDTLegal ZvnKlfs6202/07/2022 10:15 PM EDTGender IdentityMale 04/08/2025 7:15 AM EDTSexual OrientationHeterosexual or Ibbaiodz12/28/2025 7:15 AM EDTdocumented as of this encounter Miscellaneous Notes * Telephone Encounter - Brianne Morales RN - 07/02/2025 11:04 AM EST Images from the original note were not included. Post Discharge Call Good morning, I am Brianne Morales RN a lead nurse from [facility].I am calling you to follow up on your stay with us and make sure all of your questions have been answered. You will be receiving a survey either electronic or via mail and we always aim to receive 9???s and 10???s. If there is any reason you feel as though you cannot give us these scores please indicate that now. 1. How have you been feeling since being discharged from the hospital? He is feeling pretty good. Tired, but eating better. 2. Did you understand your discharge instructions when they were given to prior to leaving? Yes. Were you given an opportunity to ask questions? Yes 3. While a patient in the hospital, was your call light answered in a timely manner? Yes. 4. Do have access to all medications that were prescribed to you at discharge? Yes 5. How would you rate your overall stay on a scale of 0-10, 10 being the best experience you have ever had. 10 6. Do you have any further questions you would like to discuss? Carmen on day shift was amazing. She made us feel as comfortable as she could. She was there for us. My dad made the comment that he would not feel comfortable with anyone else. She made it as light as it could be. She was wonderful. We appreciated her so much. Patient Name You Garcia Date 07/02/25 documented in this encounter Plan of Treatment DateTypeDepartmentCare Team (Latest Contact Info)Ipjcmmdedhl51/08/2025 1:45 PM ESTFollow-Up [facility] Vascular and Endovascular Surgery [address] [place] [place] [address] Nadia Sheppard PA-C [address] [facility], [address] [place] [address] 07/22/2025 9:30 AM ESTFollow-Up [facility] Heart at [facility] [address] [place] [address] Sarah Tolliver MD [address] [facility] [address] [facility] [place] [address] 07/29/2025 2:30 PM ESTFollow-Up [facility] Medical Pavilion Gastroenterology [address] [facility] [place] [address] Ebony Estevez CNP [address] [facility] [place], [place] [address] 08/23/2025 7:30 AM ESTHospital Encounter [facility] Main Operating Room [address] [place] [place] [address] Chris Andre MD [address] [facility] [place] [address] 08/23/2025 7:30 AM EST - 08/23/2025 11:00 AM ESTSurgery [facility] Main Operating Room [address] [place] [address] Chris Andre MD [address] [place] [address] ENDARTERECTOMY, FEMORAL WITH POSSIBLE FEM TO POP GFHYOF0309/21/2025 11:00 AM EST Follow-Up [facility] at [facility] Nephrology [address] [place] [address] Batsheva Beckwith MD [address] [facility] 2 [facility] [place] [address] NamePriorityAssociated DiagnosesDate/TimeENDARTERECTOMY, FEMORAL Peripheral arterial occlusive disease Encounter for pre-operative examination 08/23/2025 7:30 AM ESTdocumented as of this encounter Goals GoalPatient Goal TypeAssociated ProblemsRecent ProgressPatient-Stated?Author Blood Pressure < 140/90 Blood Umqrtskr449/78(07/06/2025 12:48 PM EST)Cy Child, RNdocumented as of this encounter Visit Diagnoses Not on filedocumented in this encounter Care Teams Team MemberRelationshipSpecialtyStart DateEnd Date Susan Watson MD [address] [place] [address] PCP - GeneralNurse Practitioner10/13/24documented as of this encounter
--- OUTSIDE RECORDS SUMMARY | 2025-07-12 13:06 | XMS_ITS | Encounter Summary ---
Author Organization [facility] Address [address] [place] [address] Care Team Providers Care Canvas Cutter Name Role Phone Susan Watson MD Primary Care Provider [phone] Encounter Details DateTypeDepartmentCare Team (Latest Contact Info)Ddftadkxcaq30/21/2025Telephone [facility] Heart at [facility] [address] [place] [address] Elza Butt MA Social History Tobacco UseTypesPacks/DayYears UsedDateSmoking Tobacco: FormerCigarettes Smokeless Tobacco: CurrentChewAlcohol UseStandard Drinks/WeekCommentsNot Currently0 (1 standard drink = 0.6 oz pure alcohol)PHQ-2AnswerDate Recorded Patient Health Questionnaire-2 Lfhvi82908/14/2024Humiliation, Afraid, Rape, and Kick questionnaireAnswerDate RecordedWithin the [...] times a week06/15/2025How often do you attend jew or amish services?Never06/15/2025Do you belong to any clubs or organizations such as jew groups, unions, fraternal or athletic groups, or school groups?No06/15/2025How often do you attend meetings of the clubs or organizations you belong to?Never06/15/2025re you , , , , never , or living with a partner?Dpwxpayue84/04/2025UDIT-C AnswerDate RecordedQ1: How often do you have [...] care, and heating?Not hard at all06/29/2025 [place] of Occupational Health - Occupational Stress Questionnaire AnswerDate RecordedDo you feel stress - tense, restless, nervous, or anxious, or unable to sleep at night because yourmind is troubled all the time - these days? Only a wzdwpk3806/15/2025HC UtilitiesAnswerDate RecordedIn the past 12 months has the [employer], gas, oil, or water [employer] threatened to shut off services in your [...] were you homeless or living in a jail (including now)?No06/29/2025Hunger Vital SignAnswerDate Recorded Within the past 12 months, you worried that your food would run out before you got the money to buymore.Never true06/29/2025Within the past 12 months, the food you bought just didn't last and you didn't have money to get more.Never true 06/29/2025Sex and Gender InformationValueDate RecordedSex Assigned at BirthMale 04/08/2025 7:15 AM EDTLegal KfuZkhj1202/07/2022 10:15 PM EDTGender IdentityMale 04/08/2025 7:15 AM EDTSexual OrientationHeterosexual or Ritjfcge98/28/2025 7:15 AM EDTdocumented as of this encounter Miscellaneous Notes * Telephone Encounter - Elza Butt MA - 07/02/2025 8:53 AM EST Phone call from patient daughter Nini. Per daughter You had a colonoscopy yesterday and the GI DrBren Advised him to see you within the next week due to abnormal labs. I advised the daughter I could schedule him with an PUBLIC POLICY MEDIATOR and she next week and she states he is scheduled with you on 07/22 and would like to keep that appointment with you and not see an PUBLIC POLICY MEDIATOR. Patients blood work is in the patientlook up under the lab tab. Please advise LVM for patient daughter to call in reference to You's labs. Spoke to daughter to advise her of Dr. Tolliver's a advise, daughter verbalized understanding and agreed with plan of care. documented in this encounter Plan of Treatment DateTypeDepartmentCare Team (Latest Contact Info)Atstvzcfkap98/08/2025 1:45 PM ESTFollow-Up [facility] Vascular and Endovascular Surgery [address] [place] [address] Nadia Sheppard PA-C [address], [address] [place] [address] 07/22/2025 9:30 AM ESTFollow-Up [facility] Heart at [facility] [address] [place] [address] Sarah Tolliver MD [address] [place] [address] 07/29/2025 2:30 PM ESTFollow-Up [facility] Medical Pavilion Gastroenterology [facility] [place] [address] Ebony Estevez, MÓNICA [address] [place] [address] 08/23/2025 7:30 AM ESTHospital Encounter [facility] Main Operating Room [address] [place] [address] Chris Andre MD [address] [place] [address] 08/23/2025 7:30 AM EST - 08/23/2025 11:00 AM ESTSurgery [facility] Main Operating Room [address] [place] [address] Chris Andre MD [address] [facility] [place] [address] ENDARTERECTOMY, FEMORAL WITH POSSIBLE FEM TO POP YLUIQC4609/21/2025 11:00 AM EST Follow-Up [facility] Nephrology [address] [facility] [place] [address] Batsheva Beckwith MD [address] [facility] 2 [facility] [place] [address] NamePriorityAssociated DiagnosesDate/TimeENDARTERECTOMY, FEMORAL Peripheral arterial occlusive disease Encounter for pre-operative examination 08/23/2025 7:30 AM ESTdocumented as of this encounter Goals GoalPatient Goal TypeAssociated ProblemsRecent ProgressPatient-Stated?Author Blood Pressure < 140/90 Blood Pqoixrey033/78(07/06/2025 12:48 PM EST)Cy Child, JOHANAdocumented as of this encounter Visit Diagnoses Not on filedocumented in this encounter Care Teams Team MemberRelationshipSpecialtyStart DateEnd Date Susan Watson MD [address] [place] [place] [address] PCP - GeneralNurse Practitioner10/13/24documented as of this encounter
--- OUTSIDE RECORDS SUMMARY | 2025-07-12 13:06 | XMS_ITS | Encounter Summary ---
Author Organization [facility] Address [address] [place] [address] Care Team Providers Care Host/Hostess Restaurant Name Role Phone Susan Watson MD Primary Care Provider [phone] Encounter Details DateTypeDepartmentCare Team (Latest Contact Info)Ypvpftumlfa62/20/2025Travel Social History Tobacco UseTypesPacks/DayYears UsedDateSmoking Tobacco: FormerCigarettes Smokeless Tobacco: CurrentChewAlcohol UseStandard Drinks/WeekCommentsNot Currently0 (1 standard drink = 0.6 oz pure alcohol)PHQ-2AnswerDate Recorded Patient Health Questionnaire-2 Wtlcm00208/14/2024Humiliation, Afraid, Rape, and Kick questionnaireAnswerDate RecordedWithin the [...] times a week06/15/2025How often do you attend mandaen or shinto services?Never06/15/2025Do you belong to any clubs or organizations such as mandaen groups, unions, fraternal or athletic groups, or school groups?No06/15/2025How often do you attend meetings of the clubs or organizations you belong to?Never06/15/2025re you , , , , never , or living with a partner?Usvkcanyv50/04/2025UDIT-C AnswerDate RecordedQ1: How often do you have [...] medical care, and heating?Not hard at all06/29/2025 [place] of Occupational Health - Occupational Stress Questionnaire AnswerDate RecordedDo you feel stress - tense, restless, nervous, or anxious, or unable to sleep at night because yourmind is troubled all the time - these days? Only a dezsde7906/15/2025HC UtilitiesAnswerDate RecordedIn the past 12 months has the [employer], gas, oil, or water [employer] threatened to shut off services in your [...] Assigned at BirthMale 04/08/2025 7:15 AM EDTLegal LqqUgwn5802/07/2022 10:15 PM EDTGender IdentityMale 04/08/2025 7:15 AM EDTSexual OrientationHeterosexual or Ktwacahq54/28/2025 7:15 AM EDTdocumented as of this encounter Plan of Treatment DateTypeDepartmentCare Team (Latest Contact Info)Zcczylzcaqf64/08/2025 1:45 PM ESTFollow-Up [facility] Vascular and Endovascular Surgery [address] [place] [address] Nadia Sheppard PA-C [address] [facility], [address] [place] [address] 07/22/2025 9:30 AM ESTFollow-Up [facility] Heart at [facility] [address] [place] [address] Sarah Tolliver MD [address] [facility] [address] [facility] [place] [address] 07/29/2025 2:30 PM ESTFollow-Up [facility] Medical Pavilion Gastroenterology [address] [place] [address] Ebony Estevez, LIBRARY AIDE [address] [place], [place] [address] 08/23/2025 7:30 AM ESTHospital Encounter [facility] Main Operating Room [address] [facility] [place] [address] Chris Andre MD [address] [place] [address] 08/23/2025 7:30 AM EST - 08/23/2025 11:00 AM ESTSurgery [facility] Main Operating Room [address] [place] [address] Chris Andre MD [address] [place] [address] ENDARTERECTOMY, FEMORAL WITH POSSIBLE FEM TO POP DAAAGR9409/21/2025 11:00 AM EST Follow-Up [facility] at [facility] Nephrology [address] [facility] [place] [address] Batsheva Beckwith MD [address] [facility] 2 [facility] [address] NamePriorityAssociated DiagnosesDate/TimeENDARTERECTOMY, FEMORAL Peripheral arterial occlusive disease Encounter for pre-operative examination 08/23/2025 7:30 AM ESTdocumented as of this encounter Goals GoalPatient Goal TypeAssociated ProblemsRecent ProgressPatient-Stated?Author Blood Pressure < 140/90 Blood Rxnyqvqs685/78(07/06/2025 12:48 PM EST)Cy Child, JOHANAdocumented as of this encounter Visit Diagnoses Not on filedocumented in this encounter Care Teams Team MemberRelationshipSpecialtyStart DateEnd Date Susan Watson MD [address] [place] [address] PCP - GeneralNurse Practitioner10/13/24documented as of this encounter
--- OUTSIDE RECORDS SUMMARY | 2025-07-12 13:06 | XMS_ITS | Clinical Summary ---
Author Organization [facility] Address [address] [place] [place] [address] Phone Care Team Providers Care Life Claims Examiner Name Role Phone Unavailable Primary Care Provider Unavailabl e Social History Tobacco UseTypesPacks/DayYears UsedDateSmoking Tobacco: Never AssessedSex and Gender InformationValueDate RecordedSex Assigned at BirthNot on fileLegal Sex Male07/07/2022 9:17 AM ESTGender IdentityNot on fileSexual OrientationNot on file Plan of Treatment Not on file
--- OUTSIDE RECORDS SUMMARY | 2025-07-12 13:06 | XMS_ITS | Encounter Summary ---
Author Organization [facility] Address [address] [place] [address] Care Team Providers Care Fire Control Technician Name Role Phone Susan Watson MD Primary Care Provider [phone] Encounter Details DateTypeDepartmentCare Team (Latest Contact Info)Ojpqxhnuryj65/17/2025Orders Only [facility] Infectious Disease [address], [address] [place] [address] Carolyn Romo MA Social History Tobacco UseTypesPacks/DayYears UsedDateSmoking Tobacco: FormerCigarettes Smokeless Tobacco: CurrentChewAlcohol UseStandard Drinks/WeekCommentsNot Currently0 (1 standard drink = 0.6 oz pure alcohol)PHQ-2AnswerDate Recorded Patient Health Questionnaire-2 Dzxgt12608/14/2024Humiliation, Afraid, Rape, and Kick questionnaireAnswerDate RecordedWithin the [...] week06/15/2025How often do you attend mandaeism or sikh services?Never06/15/2025Do you belong to any clubs or organizations such as mandaeism groups, unions, fraternal or athletic groups, or school groups?No06/15/2025How often do you attend meetings of the clubs or organizations you belong to?Never06/15/2025re you , , , , never , or living with a partner?Rubujcjir28/04/2025UDIT-C AnswerDate RecordedQ1: How often do you have [...] medical care, and heating?Not hard at all06/29/[address] [facility] [place] of Occupational Health - Occupational Stress Questionnaire AnswerDate RecordedDo you feel stress - tense, restless, nervous, or anxious, or unable to sleep at night because yourmind is troubled all the time - these days? Only a nutane3606/15/2025HC UtilitiesAnswerDate RecordedIn the past 12 months has the [employer], gas, oil, or water [employer] threatened to shut off services in your [...] were you homeless or living in a prison (including now)?No06/29/2025Hunger Vital SignAnswerDate Recorded Within the past 12 months, you worried that your food would run out before you got the money to buymore.Never true06/29/2025Within the past 12 months, the food you bought just didn't last and you didn't have money to get more.Never true 06/29/2025Sex and Gender InformationValueDate RecordedSex Assigned at BirthMale 04/08/2025 7:15 AM EDTLegal VusDmci0502/07/2022 10:15 PM EDTGender IdentityMale 04/08/2025 7:15 AM EDTSexual OrientationHeterosexual or Bghbziqa01/28/2025 7:15 AM EDTdocumented as of this encounter Functional Status * Suicidal IdeationQuestionAnswerDate of AssessmentAuthor1. Wish to be (Lifetime)No06/29/2025 11:38 AM Brianne Dacosta RN2. Non-Specific Active Suicidal Thoughts (Lifetime)No06/29/2025 11:38 AM Brianne Dacosta RN documented as of this encounter Plan of Treatment DateTypeDepartmentCare Team (Latest Contact Info)Aaaijuubdrs44/08/2025 1:45 PM ESTFollow-[facility] Surgery [address] [place] [phone] Nadia Sheppard PA-C [address] [facility], [place] [address] [place] [address] 07/22/2025 9:30 AM ESTFollow-[facility] at [facility] [address] [place] [address] Sarah Tolliver MD [address] [place] [address] [facility] [place] [address] 07/29/2025 2:30 PM ESTFollow-Up [facility] G[facility] [address] [place] [address] [place] [phone] Ebony Estevez, WATCH BAND ASSEMBLER [address] [place] [address] 08/23/2025 7:30 AM ESTHospital Encounter [facility] Main Operating Room [address] [place] [phone] Chris Andre MD [address] [place] [phone] 08/23/2025 7:30 AM EST - 08/23/2025 11:00 AM ESTSurgery [facility] Main Operating Room [address] [place] [phone] Chris Andre MD [address] [place] [phone] ENDARTERECTOMY, FEMORAL WITH POSSIBLE FEM TO POP VJEGAZ0409/21/2025 11:00 AM EST Follow-Up [facility] Nephrology [address] [place] [address] Batsheva Beckwith MD [address] [facility] 2 [facility] [place] [address] NamePriorityAssociated DiagnosesDate/TimeENDARTERECTOMY, FEMORAL Peripheral arterial occlusive disease Encounter for pre-operative examination 08/23/2025 7:30 AM ESTdocumented as of this encounter Goals GoalPatient Goal TypeAssociated ProblemsRecent ProgressPatient-Stated?Author Blood Pressure < 140/90 Blood Qedcpvhh190/78(07/06/2025 12:48 PM EST)Cy Child, JOHANAdocumented as of this encounter Visit Diagnoses Not on filedocumented in this encounter Care Teams Team MemberRelationshipSpecialtyStart DateEnd Date Susan Watson MD [address] [place] [address] PCP - GeneralNurse Practitioner10/13/24documented as of this encounter
--- OUTSIDE RECORDS SUMMARY | 2025-07-12 13:06 | XMS_ITS | Encounter Summary ---
Author Organization [facility] Address [address] [place] [address] Care Team Providers Care Tire Worker Name Role Phone Susan Watson MD Primary Care Provider [phone] Encounter Details DateTypeDepartmentCare Team (Latest Contact Info)Xqjpftqiwwl67/17/2025Results Follow-Up [facility] Infectious Disease [address] [facility], [address] [place] [address] Carolyn Romo MA Basic metabolic panel, Magnesium, Phosphorus, CBC Social History Tobacco UseTypesPacks/DayYears UsedDateSmoking Tobacco: FormerCigarettes Smokeless Tobacco: CurrentChewAlcohol UseStandard Drinks/WeekCommentsNot Currently0 (1 standard drink = 0.6 oz pure alcohol)PHQ-2AnswerDate Recorded Patient Health Questionnaire-2 Mbxqx23208/14/2024Humiliation, Afraid, Rape, and Kick questionnaireAnswerDate RecordedWithin the [...] friends or relatives?More than three times a week11/04/2025How often do you attend taoism or shinto services?Never06/15/2025Do you belong to any clubs or organizations such as taoism groups, unions, fraternal or athletic groups, or school groups?No06/15/2025How often do you attend meetings of the clubs or organizations you belong to?Never06/15/2025re you , , , , never , or living with a partner?Uumffkufv26/04/2025UDIT-C AnswerDate RecordedQ1: How often do you have [...] medical care, and heating?Not hard at all06/29/2025 [facility] [place] of Occupational Health - Occupational Stress Questionnaire AnswerDate RecordedDo you feel stress - tense, restless, nervous, or anxious, or unable to sleep at night because yourmind is troubled all the time - these days? Only a uwesxb7606/15/2025HC UtilitiesAnswerDate RecordedIn the past 12 months has the [employer], gas, oil, or water [employer] threatened to shut off services in your [...] Assigned at BirthMale 04/08/2025 7:15 AM EDTLegal AmkIiil7602/07/2022 10:15 PM EDTGender IdentityMale 04/08/2025 7:15 AM EDTSexual OrientationHeterosexual or Dvbjgaaj07/28/2025 7:15 AM EDTdocumented as of this encounter Plan of Treatment DateTypeDepartmentCare Team (Latest Contact Info)Hbdxikqewec02/08/2025 1:45 PM ESTFollow-Up [facility] Vascular and Endovascular Surgery [address] [place] [address] Nadia Sheppard PA-C [address] [facility], [place] [place] [phone] 07/22/2025 9:30 AM ESTFollow-Up [facility] Heart at [facility] [address] [place] [address] Sarah Tolliver MD [address] [facility] [place] [address] [facility] [place] [address] 07/29/2025 2:30 PM ESTFollow-Up [facility] Medical [facility] Gastro[facility]ology [address] [place] [address] [place] [address] Ebony Estevez, ECHO VASC TECH [address] [facility] [place], [place] [phone] 08/23/2025 7:30 AM ESTHospital Encounter [facility] Main Operating Room [address] [place] [address] Chris Andre MD [address] [place] [phone] 08/23/2025 7:30 AM EST - 08/23/2025 11:00 AM ESTSurgery [facility] Main Operating Room [address] [place] [address] Chris Andre MD [address] [place] [phone] ENDARTERECTOMY, FEMORAL WITH POSSIBLE FEM TO POP QQOHGR0309/21/2025 11:00 AM EST Follow-Up [facility] Nephrology [address] [facility] [place] [address] Batsheva Beckwith MD [address] [facility] 2 [facility] [place] [address] NamePriorityAssociated DiagnosesDate/TimeENDARTERECTOMY, FEMORAL Peripheral arterial occlusive disease Encounter for pre-operative examination 08/23/2025 7:30 AM ESTdocumented as of this encounter Goals GoalPatient Goal TypeAssociated ProblemsRecent ProgressPatient-Stated?Author Blood Pressure < 140/90 Blood Ocaeaamz714/78(07/06/2025 12:48 PM EST)Cy Child, JOHANAdocumented as of this encounter Visit Diagnoses Not on filedocumented in this encounter Care Teams Team MemberRelationshipSpecialtyStart DateEnd Date Susan Watson MD [address] [place] [address] PCP - GeneralNurse Practitioner10/13/24documented as of this encounter
--- OUTSIDE RECORDS SUMMARY | 2025-07-12 13:06 | XMS_ITS | Clinical Summary ---
Author Organization [employer] Address [id number] [address] [place] [address] Care Team Providers Care Pilling Machine Operator Name Role Phone Susan Watson APRN-NATURAL GAS TECHNICIAN Primary Care Provider Allergies No known active allergies Medications MedicationSigDispense QuantityRefillsLast FilledStart DateEnd DateStatus amLODIPine (NORVASC) 5 mg tablet Take 1 tablet (5 mg total) by mouth in the morning.Active isosorbide mononitrate (IMDUR) 60 mg 24 hr tablet Take 1 tablet (60 mg total) by mouth daily.Active atorvastatin (LIPITOR) 80 mg tablet Take 1 tablet (80 mg total) by mouth in the morning.Active clopidogreL (PLAVIX) 75 mg tablet Take 1 tablet (75 mg total) by mouth in the morning.Active famotidine (PEPCID) 20 mg tablet Take 1 tablet (20 mg total) by mouth in the morning and 1 tablet (20 mg total) before bedtime.Active fenofibrate micronized (ANTARA) 43 mg capsule Take 1 capsule (43 mg total) by mouth every morning before breakfast.Active metoprolol tartrate (LOPRESSOR) 50 mg tablet Take 1 tablet (50 mg total) by mouth in the morning and 1 tablet (50 mg total) before bedtime.Active sertraline (ZOLOFT) 100 mg tablet Take 1 tablet (100 mg total) by mouth in the morning.Active buPROPion XL (WELLBUTRIN XL) 300 mg 24 hr tablet Take 1 tablet (300 mg total) by mouth in the morning.Active OLANZapine (ZyPREXA) 5 mg tablet Take 1 tablet (5 mg total) by mouth nightly.Active traZODone (DESYREL) 100 mg tablet Take 1 tablet (100 mg total) by mouth nightly.Active busPIRone (BUSPAR) 15 mg tablet Take 1 tablet (15 mg total) by mouth in the morning and 1 tablet (15 mg total) at noon and 1 tablet(15 mg total) before bedtime.Active predniSONE (DELTASONE) 20 mg tablet 60mg x3d, 40mg x3d, 20mg x3d, 10mg x4d 20 tablet 4Active albuterol (PROVENTIL HFA;VENTOLIN HFA) 90 mcg/actuation inhaler Indications:Acute bronchitis, unspecified organismInhale 2 puffs every 4 (four) hours as needed for wheezing. 18 g 02/26/2024ctive baclofen (LIORESAL) 10 mg tablet Take 1 tablet (10 mg total) by mouth daily as needed.5Active nitroglycerin (NITROSTAT) 0.[address] 1 tablet (0.4 mg total) under the tongue every 5 (five) minutes as needed for chest pain.4Active Active Problems ProblemNoted DateDiagnosed DateCervical jsksrcwhssu04/10/2025Neck pain11/19/2024 Frequent falls06/17/2024Functional gait qqiurhjyijt38/06/2024hronic obstructive pulmonary disease, lqdclalounb83/31/2024Chronic kidney disease, stage 4 (severe) 4Closed nondisplaced fracture of greater tuberosity of left humerus with routine qgdaktw7009/19/2023oronary artery disease involving quileute coronary artery of quileute heart without angina /08/2024GAD (generalized anxiety disorder)09/19/2023Traumatic complete tear of left rotator cuff09/19/2023MCI (mild cognitive impairment)2Recurrent major depression in partial wkiekvveg27/01/2022Recurrent major depressive disorder, in full remission 2Primary mzxfucqrnopd40/17/2014bnormal results of cardiovascular function sfyukfn8009/30/2013 Overview (01/27/2025): MILD INFERIOR AND ANTERIOR ISCHEMIA EF 52% Chest pain09/18/2013Dyspnea and respiratory eipbrwgvqvxdu20/07/2014 Overview (01/27/2025): 66 pk/yr history of smoking. Quit in 1994, when diagnosed with NSCLC and treated with RULobectomy and XRT. Also has extensive coronary disease, with CABG. Sees cardiology at [facility]. Anxiety, HTN, CKD IIIb. PCP started albuterol [...] without BD response. Atherosclerosis of arteries of netxzcsbxeh63/14/2013Intermittent claudication 08/25/2012Gastroesophageal reflux disease without kjozbgrbcbu92/07/2012Migraine 07/18/2012Mixed rdhvjimlexhmgf14/07/2012WeaknessDepression Social History Tobacco UseTypesPacks/DayYears UsedDateSmoking Tobacco: FormerCigarettes Smokeless Tobacco: CurrentChew Tobacco Cessation:Ready to Q uit: Not Asked; Counseling Given: Not Answered Alcohol UseStandard Drinks/WeekCommentsNever0 (1 standard drink = 0.6 oz pure alcohol)ChildcareAnswerDate VabypmcrWjivbvygaKehaysm33/21/2020EmploymentAnswer Date KfzglactYqpqlnkcdaPjbnwgd12/21/2020Hunger ScreeningAnswerDate Recorded Within the past 12 months we worried whether our food would run out before we got money to buy more.Never True03/10/2025Within the past 12 months the food we bought just didn't last and we didn't have money to get more.Never True 03/10/2025Purpose - LifeAnswerDate RecordedPurpose and direction in lifeUnknown 09/22/2020ex and Gender InformationValueDate RecordedSex Assigned at BirthNot on fileLegal LskOsot1610/02/2019 11:04 AM ESTGender IdentityNot on fileSexual OrientationNot on file Last Filed Vital Signs Vital SignReadingTime TakenCommentsBlood Lshtwuwn169/54003/10/2025 9:53 AM EDT Igpho576203/10/2025 9:53 AM IODAqvahzpvblr65.2 ??C (97.2 ??F)02/19/2025 1:56 PM EDTRespiratory Uhcl087003/10/2025 9:53 AM EDTOxygen Fcwrsfapri871%03/10/2025 9:53 AM EDTInhaled Oxygen Concentration--Djdfdw11.9 kg (163 lb)03/10/2025 9:53 AM EDT Qkuhlm670.1 cm (5' 5 )03/10/2025 9:53 AM EDTBody Mass Index27.12003/10/2025 9:53 AM EDT Plan of Treatment Health MaintenanceDue DateLast DoneCommentsTobacco Ktgazslecj1953 Depression Gywcyeymt01/17/1965Adult BMI Follow Up Plan1971DTaP,Tdap and Td Vaccines (1 - Tdap)1972Zoster (Shingles) Vaccine (1 of 2)2003RSV ( or age 60+ yrs) (1 - Risk 60-74 years 1-dose series)2013Fall Risk Uamlaimen02/17/2018COVID-19 Vaccine ( - season)2025 08/06/2021, 11/08/2020, 10/19/2020Influenza Fxficym12/07/2021, 08/03/2020Statin Use: Qdgcctwrlkvstr19dult BMI Screening Tobacco Rkgnatklq08bdominal Aortic Aneurysm (AAA) RwrfpmMptmywiiz02/24/2020 Medical Devices Not on file Insurance Care Teams Team MemberRelationshipSpecialtyStart DateEnd Date Susan Watson, GERARDO-NATURAL GAS TECHNICIAN PCP - GeneralNurse Practitioner01/11/25
--- OUTSIDE RECORDS SUMMARY | 2025-07-12 13:06 | XMS_ITS | Encounter Summary ---
Author Organization [facility] Address [address] [place] [address] Care Team Providers Care Molding Manager Name Role Phone Susan Watson MD Primary Care Provider [phone] Encounter Details DateTypeDepartmentCare Team (Latest Contact Info)Yrkmhkezryt59/17/2025Travel Social History Tobacco UseTypesPacks/DayYears UsedDateSmoking Tobacco: FormerCigarettes Smokeless Tobacco: CurrentChewAlcohol UseStandard Drinks/WeekCommentsNot Currently0 (1 standard drink = 0.6 oz pure alcohol)PHQ-2AnswerDate Recorded Patient Health Questionnaire-2 Arrjs94008/14/2024Humiliation, Afraid, Rape, and Kick questionnaireAnswerDate RecordedWithin the [...] times a week06/15/2025How often do you attend christian or nondenominational services?Never06/15/2025Do you belong to any clubs or organizations such as christian groups, unions, fraternal or athletic groups, or school groups?No06/15/2025How often do you attend meetings of the clubs or organizations you belong to?Never06/15/2025re you , , , , never , or living with a partner?Omcyofgxt02/04/2025UDIT-C AnswerDate RecordedQ1: How often do you have [...] medical care, and heating?Not hard at all06/29/2025 [place] of Occupational Health - Occupational Stress Questionnaire AnswerDate RecordedDo you feel stress - tense, restless, nervous, or anxious, or unable to sleep at night because yourmind is troubled all the time - these days? Only a hprxov8006/15/2025HC UtilitiesAnswerDate RecordedIn the past 12 months has the [employer], gas, oil, or water [employer] threatened to shut off services in your [...] Assigned at BirthMale 04/08/2025 7:15 AM EDTLegal TxoOgdf0302/07/2022 10:15 PM EDTGender IdentityMale 04/08/2025 7:15 AM EDTSexual OrientationHeterosexual or Dnjhdmmk20/28/2025 7:15 AM EDTdocumented as of this encounter Plan of Treatment DateTypeDepartmentCare Team (Latest Contact Info)Neumagqjcry98/08/2025 1:45 PM ESTFollow-Up [facility] Vascular and Endovascular Surgery [address] [place] [phone] Nadia Sheppard PA-C [address] [facility], [place] [place] [address] 07/22/2025 9:30 AM ESTFollow-Up [facility] Heart at [facility] [address] [place] [address] Sarah Tolliver MD [address] [facility] [place] [address] [facility] [place] [address] 07/29/2025 2:30 PM ESTFollow-Up [facility] Medical [facility] Gastroenterology [address] [place] [address] Ebony Estevez, PHOTO TUBE ASSEMBLER [address] [place], [place] [phone] 08/23/2025 7:30 AM ESTHospital Encounter [facility] Main Operating Room [address] [facility] [place] [address] Chris Andre MD [address] [place] [address] 08/23/2025 7:30 AM EST - 08/23/2025 11:00 AM ESTSurgery [facility] Main Operating Room [address] [place] [address] Chris Andre MD [address] [place] [address] ENDARTERECTOMY, FEMORAL WITH POSSIBLE FEM TO POP IPLDED7909/21/2025 11:00 AM EST Follow-Up [facility] Nephrology [address] [facility] [place] [phone] Batsheva Beckwith MD [address] [facility] 2 [facility] [address] NamePriorityAssociated DiagnosesDate/TimeENDARTERECTOMY, FEMORAL Peripheral arterial occlusive disease Encounter for pre-operative examination 08/23/2025 7:30 AM ESTdocumented as of this encounter Goals GoalPatient Goal TypeAssociated ProblemsRecent ProgressPatient-Stated?Author Blood Pressure < 140/90 Blood Ivuwjrnd968/78(07/06/2025 12:48 PM EST)Cy Child, JOHANAdocumented as of this encounter Visit Diagnoses Not on filedocumented in this encounter Care Teams Team MemberRelationshipSpecialtyStart DateEnd Date Susan Watson MD [address] [place] [address] PCP - GeneralNurse Practitioner10/13/24documented as of this encounter
--- OUTSIDE RECORDS SUMMARY | 2025-07-12 13:11 | XMS_ITS | CCD ---
Author Organization [facility] Care Team Providers Care [employer] Name Role Phone AMBURN, JOMAR Unavailable Unavailable [...] Provider Genesis, Thomas Unavailable Nadira Choi Unavailable Hanna Toscano Unavailable Genesis, Thomas Unavailable SHAIKH Randolph GRIMES Consulting Unavailable SHAIKH Randolph GRIMES Primary Care Unavailable SHAIKH Randolph GRIMES Admitting Unavailable SHAIKH Randolph GRIMES Attending Unavailable SHAIKH Randolph GRIMES Primary Care Unavailable VALERIE, DR FLORES Attending Unavailable VALERIE, DR FLORES Consulting Unavailable DR SARAH TOLLIVER Admitting Unavailable HANNA TOSCANO Admitting Unavailable BAKHOUS, AZIZ Attending Unavailable BAKUSAMAS, AZIZ Consulting Unavailable NON STAFF Primary Care Unavailable Lucy Cope Admitting Unavailable Lucy Cope Attending Unavailable Corona Monroe Admitting Unavailable Corona Monroe Attending Unavailable Daria Cardoza Primary Care Unavailable Cornelio LEMON, Awad Primary Care Provider [phone] Genesis LEMON, Thomas Unavailable EUN KAUFMAN Referring Unavailable Cornelio LEMON [facility] Unavailable Jose Beckford MD Primary Care Provider Ivonne CERTIFIED RETINAL ANGIOGRAPHER, Jayy Unavailable Vannessa Russell MA Unavailable Unavailable Cornelio LEMON, [facility] Primary Care Provider Ivonne CERTIFIED RETINAL ANGIOGRAPHER, Jayy Unavailable Shirley PHYTOPATHOLOGIST-MÓNICA, Noa Hurley Primary Care Provider NOA WATSON Attending Unavailable NOA WATSON Attending Unavailable SHAIKH GRIMES Attending Unavailable JAYY CORONADO Attending Unavailabl e NOA WATSON Attending Unavailable NOA WATSON Attending Unavailable JAYY CORONADO Attending Unavailabl e Aichholz PHYTOPATHOLOGIST-MULTIFOCAL BUTTON GRINDER, Noa J Primary Care Provider Noa Watson CNP Primary Care Provider BILL GANT Referring Unavailable NOA WATSON Primary Care Unavailable BILL GANT Attending Unavailable SELF Referring Unavailable NOA WATSON Primary Care Unavailable JAYY CORONADO Referring Unavaila ble CORNELIO [facility] Primary Care Unavailable SARAH TOLLIVER Referring Unavailable CORNELIO [facility] Primary Care Unavailable NOA WATSON J Referring Unavailable AICHHOLZ, NOA J Primary Care Unavailable BAKUSAMAS, AZIZ Referring Unavailable AICHHOLZ, NOA J Primary Care Unavailable BAKHOUS, AZIZ Referring Unavailable AICHHOLZ, NOA J Primary Care Unavailable DARRICK CANNON Attending Unavailable AICHHOLZ, NOA J Referring Unavailable AICHHOLZ, NOA J Primary Care Unavailable JUSTO CHERRY E Admitting Unavailable CHERRYJUSTO LEMUS E Attending Unavailable AICHHOLZ, NOA J Referring Unavailable AICHHOLZ, NOA J Primary Care Unavailable CHERRY, JUSTO E Attending Unavailable CHERRY, JUSTO E Referring Unavailable AICHHOLZ, NOA J Primary Care Unavailable VERDARRICK CHILDS N Attending Unavailable AICHHOLZ, NOA J Referring Unavailable AICHHOLZ, NOA J Primary Care Unavailable VERDARRICK CHILDS N Attending Unavailable DARRICK CANNON Referring Unavailable AICHHOLZ, NOA J Primary Care Unavailable BILL GANT Referring Unavailable AICHHOLZ, NOA J Primary Care Unavailable EUN TRENT Attending Unavailable SELF Referring Unavailable MISTY POLO Attending Unavailable EUN TRENT Referring Unavailable EUN TRENT Attending Unavailable SELF Referring Unavailable EUN TRENT Attending Unavailable AICHHOLZ, NOA PREET Primary Care Unavailable Cornelio LEMON, Primary Care Provider [phone] Cornelio LEMON, Unavailable Jose Beckford MD Primary Care Provider Ivonne YAÑEZ, Jayy Unavailable [phone] Vannessa Russell MA [facility] Referring Unavailable WILL KEYS Referring Unavailable NAZZAL, MUNIER Admitting Unavailable NAZZAL, MUNIER Attending Unavailable KARAN HAWKINS Attending Unavailable ELTAHAWY, EHAB Admitting Unavailable ELTAHAWY, EHAB Attending Unavailable ELTAHAWY, EHAB Admitting Unavailable ELTAHAWY, EHAB Attending Unavailable NAZZAL, MUNIER Admitting Unavailable NAZZAL, MUNIER Attending Unavailable IRAIS ARRINGTON Attending Unavailable NAZZAL, MUNIER Attending Unavailable ELTAHAWY, EHAB Referring Unavailable NAZZAL, MUNIER Referring Unavailable DEBBIE MRIANDA Attending Unavailable ELTAHAWY, EHAB Referring Unavailable ELTAHAWY, EHAB Attending Unavailable ELTAHAWY, EHAB Referring Unavailable ELTAHAWY, EHAB Referring Unavailable Allergies Allergy ClassificationReported Allergen(s)Allergy TypeDate of OnsetReaction(s) Facility (1 source)Penicillins; Translations: [PENICILLINS]Propensity to adverse reactions to drug (disorder)41-84-8074[facility] source)NO ACTIVE ALLERGIES; Translations: [NO ACTIVE ALLERGIES]Propensity to adverse reactions (disorder)[facility] Repository Medications Current Medications MedicationDrug Class(es)DatesSig (Normalized)Sig (Original)[id number] 200 actuat albuterol 0.09 mg/actuat metered dose inhaler (20 sources)beta2-Adrenergic AgonistStart: 57-28-4029rmat 2 puff(s) by inhalation every four hours as needed for wheezingalbuterol (PROVENTIL HFA;VENTOLIN HFA) 90 mcg/actuation inhaler Indications: Acute bronchitis, unspe cified organism Inhale 2 puffs every 4 (four) hours as needed for wheezing. 18 g 02/26/2024 ActiveStart: 12-02-2021 End: 87-60-6909utfy 1 puff(s) by mouth every four hours as neededalbuterol HFA (PROVENTIL HFA, VENTOLIN HFA) 90 mcg/actuation inhaler INHALE 1 PUFF BY MOUTH EVERY 4HOURS NEEDED 12/02/2021 ActiveStart: 67-80-1371Uovpibygz Sulfate 90 mcg/actuation HFA aerosol inhaler Active 90 MCG INHALATION Q4H as needed for Sh ortness Of Breath September 13, 2020 1:00amStart: 70-94-0641fbix 1 puff(s) by inhalation every four hours as neededVentolin HFA 108 (90 Base) MCG/ACT 1 puff as needed Inhalation every 4 hrs for 30 day(s) PRN Jul, Not-TakingStart: 62-82-1445nkbx 2 puff(s) by inhalation every four hours for wheezingalbuterol HFA 90 mcg/act inhaler Inhale 2 puffs every 4 (four) hours if needed for wheezing Activetake 1 puff(s) by mouth every four hours as neededAlbuterol Sulfate HFA 108 (90 Base) MCG/ACT INHALE 1 PUFF BY MOUTH EVERY 4 HOURS NEEDED for 30 PRN ActiveComment on above:albuterol sulfate HFA 90 mcg/actuation aerosol inhaler INHALE 1 PUFF BY MOUTH EVERY 4 HOURS NEEDEDINHALE 1 PUFF BY MOUTH EVERY 4 HOURS NEEDEDamLODIPine 5 mg oral tablet (20 sources)Dihydropyridine Calcium Channel BlockerStart: 03-11-2024 End: 07-78-1033mqyg 1 tablet by mouth onceamLODIPine (Norvasc) 5 MG tablet Indications: Primary hypertension Take 1 tablet (5 mg) by mouth every 12 (twelve) hours 180 tablet 1 03/01/2025 05/30/2025 ActiveStart: 13-51-5193yglo 1 tablet by mouth twice dailyAmlodipine 5 mg tablet Active 5 MG PO Twice daily October 15, 2023 4:56pmStart: 10-22-2019 End: 64-62-9097yhuq 1 tablet by mouth once dailyAmlodipine 5 mg Tablet Discontinued 5 MG PO Daily October 22, 2019 12:00am October 15, 2023 5:03pmtake 1 tablet by mouth every twenty-four hoursamLODIPine Besylate 10 MG 1 tablet Orally Once a day for 90 day(s) ActiveComment on above:amlodipine 5 mg tablet TAKE 1 TABLET BY MOUTH EVERY DAYaspirin 81 mg delayed release oral tablet (20 sources)Platelet Aggregation Inhibitor, Nonsteroidal Anti-inflammatory Drug Start: 10-22-2019 End: 85-90-2055glzo 1 tablet by mouth in the morningaspirin 81 MG EC tablet Indications: Coronary artery disease involving [place] coronary artery of [place] heart without angina pectoris Take 1 tablet (81 mg) by mouth in the morning. 90 tablet 1 03/01/2025 05/30/2025 Activeaspirin, enteric coated (ASPIRIN, ENTERIC COATED) 81 mg EC tablet q 24 HR. Activetake 1 tablet by mouth once dailyAspirin Adult Low Dose 81 MG 1 tablet Orally Once a day ActiveComment on above:q 24 HR. atorvastatin 80 mg oral tablet (20 sources)HMG-CoA Reductase InhibitorStart: 10-22-2019 End: 33-28-0816gysr 1 tablet by mouth at bedtimeatorvastatin (Lipitor) 80 MG tablet Indications: Other hyperlipidemia Take 1 tablet (80 mg) by mouth at bedtime 90 tablet 1 03/01/2025 05/30/2025 ActiveComment on above:atorvastatin 80 mg tablet TAKE 1 TABLET BY MOUTH EVERY DAYbaclofen 10 mg oral tablet (20 sources)gamma-Aminobutyric Acid-ergic AgonistStart: 65-31-9940xwyd 1 tablet by mouth once daily as neededbaclofen (LIORESAL) 10 mg tablet Take 1 tablet (10 mg total) by mouth daily as needed. 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 Do not crush, chew, or split. 90 tablet 05/30/2025 ActiveStart: 07-86-3205eaaq 1 tablet by mouth once daily in the morningStart: 09-19-2023 End: 85-37-4099fpgf 1 tablet by mouth every twenty-four hours in the morning buPROPion XL (Wellbutrin XL) 300 MG 24 hr tablet Indications: Recurrent major depression in partialremission (HCC) (CMS/HCC) Take 1 tablet (300 mg) by mouth in the morning. Do not crush, chew, or split.. 90 tablet 0 09/19/2023 12/18/2023 ActiveStart: 12-04-2021 End: 60-52-2586qwod 1 tablet by mouth once daily in the morningbuPROPion XL (WELLBUTRIN XL) 150 mg 24 hr tablet TAKE 1 TABLET BY MOUTH EVERY DAY IN THE MORNING 0 12/04/2021 04/10/2022 DiscontinuedStart: 10-22-2019 End: 59-59-6757pcid 1 tablet by mouth once dailyBupropion Hcl 100 mg Tablet Sustained-Release 12 Hr Discontinued 100 MG PO Daily October 22, 2019 12:00am October 15, 2023 4:57pmStart: 10-22-2019 End: 11-34-5927guva 1 tablet by mouth once dailyBupropion Hcl 200 mg Tablet Sustained-Release 12 Hr Discontinued 200 MG PO Daily October 22, 2019 12:00am October 15, 2023 4:57pmComment on above:bupropion HCl XL 300 mg 24 hr tablet, extended release TAKE 1 TABLET BY MOUTH EVERY DAY IN THE MORNINGTAKE 1 TABLET BY MOUTH EVERY DAY IN THE MORNINGbusPIRone hydrochloride 15 mg oral tablet (20 sources)Start: 10-22-2019 End: 87-89-5832icxw 1 tablet by mouth in the morningbusPIRone (Buspar) 15 MG tablet Indications: Recurrent major depression in partial remission Take 1tablet (15 mg) by mouth in the morning and 1 tablet (15 mg) before bedtime. 180 tablet 1 ActiveComment on above:buspirone 15 mg tablet TAKE 1 TABLET BY MOUTH TWICE DAILYCentrum Silver 50+Men - (20 sources)Centrum Silver 50+Men - as directed Orally Activeclopidogrel 75 mg oral tablet (20 sources)P2Y12 Platelet InhibitorStart: 10-22-2019 End: 64-43-6073bzix 1 tablet by mouth once dailyclopidogrel (Plavix) 75 MG tablet Indications: Coronary artery disease involving [place] coronary artery of [place] heart without angina pectoris Take 1 tablet (75 mg) by mouth Daily 90 tablet 1 03/01/2025 05/30/2025 ActiveComment on above:clopidogrel 75 mg tablet TAKE 1 TABLET BY MOUTH AT BEDTIMEempagliflozin 10 mg oral tablet (2 sources)Sodium-Glucose Cotransporter 2 InhibitorStart: 44-94-9780wweu 1 tablet by mouth once daily at breakfastempagliflozin (JARDIANCE) 10 mg tablet Take 1 tablet by mouth daily with breakfast. 30 tablet 11 04/02/2025 Active famotidine 20 mg oral tablet (20 sources)Histamine-2 Receptor AntagonistStart: 10-22-2019 End: 37-26-5731nlgp 1 tablet by mouth in the morningfamotidine (Pepcid) 20 MG tablet Indications: Gastroesophageal reflux disease without esophagitis Take 1 tablet (20 mg) by mouth in the morning and 1 tablet (20 mg) before bedtime. 180 tablet 1 03/01/2025 05/30/2025 ActiveComment on above:famotidine 20 mg tablet TAKE 1 TABLET BY MOUTH EVERY DAY AT BEDTIME NEEDEDfenofibrate 43 mg oral capsule (20 sources)Peroxisome Proliferator Receptor alpha AgonistStart: 10-22-2019 End: 47-34-1302xcca 1 capsule by mouth twice dailyFenofibrate Micronized 43 mg capsule Take 43 mg by mouth twice daily. 12/15/2021 Activetake 1 capsule by mouth once daily before breakfastfenofibrate micronized (ANTARA) 43 mg capsule Take 1 capsule (43 mg total) by mouth every morning before breakfast. Active Comment on above:Take 43 mg by mouth twice daily.ferrous sulfate 325 mg oral tablet (8 sources)Start: 01-19-2025 End: 45-99-2952bcdw 1 tablet by mouth at mealtimeferrous sulfate (FeroSul) 325 (65 Fe) MG tablet Indications: Chronic kidney disease, stage 4 (severe) ([facility]) Take 1 tablet (325 mg) by mouth in the morning. Take with meals. 90 tablet 1 03/01/2025 05/30/2025 ActiveFish Oils (20 sources)take 1 capsule by mouth once dailytake 1 capsule by mouth once daily Fish Oil 1000 MG 1 capsule Orally Once a day Rydtfp944 actuat fluticasone propionate 0.115 mg/actuat / salmeterol 0.021 mg/actuat metered dose inhaler (9 sources)Corticosteroid, beta2-Adrenergic Agonisttake 2 puff(s) by inhalation twice daily30 actuat fluticasone furoate 0.1 mg/actuat / umeclidinium 0.0625 mg/actuat / vilanterol 0.025 mg/actuat dry powder inhaler (20 sources)Anticholinergic, Corticosteroid, beta2-Adrenergic AgonistStart: 02-18-2024 End: 46-11-8641lund 1 puff(s) by mouth once daily, then take 1 puff(s) by mouth once qxpgfZewbcxqerzf-Cnkxggdca-Rykckn (Trelegy Ellipta) 100-62.5-25 MCG/ACT aerosol powder Indications: Chronic obstructive pulmonary disease, unspecified COPD type (HCC) Inhale 1 puff Daily Rinse mouth afteruse. Inhale 1 puff Daily 180 each 1 03/01/2025 05/30/2025 ActiveStart: 02-18-2024 End: 65-94-5882ywak 1 puff(s) by inhalation in the morning gahsxnuesoy-fkvqhvnxq-qsmplzxt (TRELEGY ELLIPTA) 100-62.5-25 mcg blister with device Inhale 1 puff in the morning. 02/18/2024 03/24/2025 ActiveStart: 91-77-4691Zppdudllbls-Umeclidin-Vilanter (Trelegy Ellipta) 100-62.5-25 mcg blister with device Active 1 INH INHALATION Daily October 15, 2023 1:00amStart: 09-19-2023 End: 44-77-3850leus 1 puff(s) by inhalation in the morning Fbbzvstfmep-Mguiuxqea-Bbxoao (Trelegy Ellipta) 100-62.5-25 MCG/ACT aerosol powder Indications: Chronic obstructive pulmonary disease, unspecified COPD type (CMS/HCC) Inhale 1 puff in the morning. 90 each 0 09/19/2023 12/18/2023 Active Start: 97-89-5132dmwv 1 puff(s) by inhalation once dailyTrelegy Ellipta 100-62.5-25 MCG/INH 1 puff Inhalation Once a day for 30 days Feb, Active End: 52-75-8660Bcolgvmkqef-Umeclidin-Vilant (Trelegy Ellipta) 100-62.5-25 MCG/ACT aerosol powder Inhale 0 09/19/2023 Discontinued (Reorder)furosemide 20 mg oral tablet (2 sources)Loop DiureticStart: 96-68-1661xiqa 1 tablet by mouth once daily in the morningfurosemide (LASIX) 20 mg tablet Take 1 tablet by mouth every morning. 30 tablet 11 04/02/2025 Gvlwgr84 hr isosorbide mononitrate 60 mg extended release oral tablet (20 sources)Nitrate VasodilatorStart: 09-19-2023 End: 78-36-2855lkqd 1 tablet by mouth every twenty-four hours in the morning isosorbide mononitrate ER (Imdur) 60 MG 24 hr tablet Indications: Coronary artery disease involvingnative coronary artery of [place] heart without angina pectoris (CMS/HCC) , Primary hypertension (CMS/HCC) Take 1 tablet (60 mg) by mouth in the morning. Do not crush or chew.. 90 tablet 0 09/19/2023 12/18/2023 ActiveStart: 10-22-2019 End: 12-20-1789duhg 1 tablet by mouth once dailyisosorbide mononitrate ER (Imdur) 60 MG 24 hr tablet Indications: Primary hypertension , Coronary artery disease involving [place] coronary artery of [place] heart without angina pectoris Take 1 tablet(60 mg) by mouth Daily Do not crush or chew. 90 tablet 1 03/01/2025 05/30/2025 ActiveComment on above:isosorbide mononitrate ER 60 mg tablet,extended release 24 hr TAKE 1 TABLET BY MOUTH EVERY MORNINGlisinopril 10 mg oral tablet (20 sources)Angiotensin Converting Enzyme InhibitorStart: 12-24-2024 End: 69-48-6986qxiu 1 tablet by mouth once dailylisinopril 10 MG tablet Indications: Primary hypertension Take 1 tablet (10 mg) by mouth Daily 90 tablet 1 03/01/2025 05/30/2025 ActiveComment on above:lisinopril 10 mg tabletmetoprolol tartrate 50 mg oral tablet (20 sources)beta-Adrenergic BlockerStart: 03-11-2024 End: 32-17-1764fgiu 1 tablet by mouth in the morningmetoprolol tartrate (Lopressor) 50 MG tablet Indications: Primary hypertension , Coronary artery dis ease involving [place] coronary artery of [place] heart without angina pectoris Take 1 tablet (50 mg)by mouth in the morning and 1 tablet (50 mg) before bedtime. 180 tablet 1 03/01/2025 05/30/2025 ActiveStart: 09-19-2023 End: 86-14-5280hxex 1 tablet by mouth in the morningmetoprolol tartrate (Lopressor) 50 MG tablet Indications: Coronary artery disease involving [place] c oronary artery of [place] heart without angina pectoris (CMS/HCC) , Primary hypertension (CMS/HCC) Take 1 tablet (50 mg) by mouth in the morning and 1 tablet (50 mg) before bedtime. 180 tablet 0 09/19/2023 12/18/2023 ActiveStart: 10-22-2019 End: 85-97-4963edyz 1 tablet by mouth once dailyMetoprolol Succinate 50 mg tablet extended release 24 hr Active 50 MG PO Daily October 15, 2023 1:00amtake 1 tablet by mouth twice dailymetoprolol succinate ER (TOPROL XL) 50 mg 24 hr tablet metoprolol succinate ER 50 mg tablet,extended release 24 hr TAKE 1 TABLET BY MOUTH TWICE DAILY Activetake 1 capsule by mouth twice dailyMetoprolol Succinate 50 MG 1 capsule Orally twice a day ActiveComment on above:metoprolol succinate ER 50 mg tablet,extended release 24 hr TAKE 1 TABLET BY MOUTH TWICE DAILYMultivitamin preparation (2 sources)Start: 78-29-0416zvtd 1 tablet by mouth once dailyMultivitamin Active 1 TAB PO Daily September 13, 2020 1:00amMultivitamin Tablet (2 sources)Start: 93-95-8757ltgh 1 tablet by mouth once dailyMultivitamin Tablet Active 1 TAB PO Daily September 13, 2020 1:00amNitro Sublingual 0.4 0.4mg (20 sources)Nitro Sublingual 0.4 0.4mg 1 Sublingual Every 5min x3 PRN Active nitroglycerin 0.4 mg sublingual tablet (20 sources)Nitrate VasodilatorStart: 10-15-2023 End: 57-95-9948Tmnps: 10-22-2019 End: 68-81-8508lbgnsjtdjhykc (Nitrostat) 0.4 MG SL tablet Indications: Coronary artery disease involving [place] coronary artery of [place] heart without angina pectoris Place 1 tablet (0.4 mg) under the tongue every5 (five) minutes if needed for chest pain 30 tablet 06/17/2024 Activenitroglycerin sublingual (NITROQUICK) 0.4 mg SL tablet nitroglycerin 0.4 mg sublingual tablet Active Comment on above:nitroglycerin 0.4 mg sublingual tabletOLANZapine 5 mg oral tablet (20 sources)Atypical AntipsychoticStart: 01-19-2025 End: 30-89-6549olfb 1 tablet by mouth once daily at bedtimeOLANZapine (ZYPREXA) 5 mg tablet Take 5 mg by mouth daily at bedtime. 03/01/2025 05/30/2025 Active Start: 12-01-2024 End: 72-38-0908rtcy 1 tablet by mouth at bedtimeOLANZapine (ZyPREXA) 2.5 MG tablet Indications: EDITH (generalized anxiety disorder) (CMS/HCC) Take 1tablet (2.5 mg) by mouth at bedtime 90 tablet 1 12/24/2024 01/19/2025 Discontinued (Ineffective)Start: 09-19-2023 End: 96-22-6026vqft 1 tablet by mouth once dailyStart: 10-22-2019 End: 45-86-5434lybk 1 tablet by mouth once daily at bedtimeOlanzapine 5 mg Tablet Discontinued 5 MG PO Daily at bedtime October 22, 2019 12:00am October 15, 2023 5:01pmComment on above:olanzapine 5 mg tablet TAKE 1 TABLET BY MOUTH EVERY DAY AT BEDTIMEomega 0-xkg-xdf-fish oil (FISH OIL) 100-160-1,000 mg cap (16 sources)omega 2-dgp-bni-fish oil (FISH OIL) 100-160-1,000 mg cap Take by mouth. Activeomega 5-gjb-xop-fish oil (FISH OIL) 100-160-1,000 mg cap Take by mouth. 0 ActiveComment on above:Take by mouth.[place]-3 Fatty Acids (2 sources)Start: 64-56-8073fuci 1000 mg by mouth once dailyOmega-3 Fatty Acids Active 1000 MG PO Daily September 13, 2020 1:00amOmega-3 Fatty Acids Capsule (2 sources)Start: 97-23-6546hzqt 1 capsule by mouth once dailyOmega-3 Fatty Acids Capsule Active 1000 MG PO Daily September 13, 2020 1:00amPaxlovid 10 x 150 MG & 10 x 100MG (1 source)Start: 75-45-8814Ijifchlx 10 x 150 MG & 10 x 100MG as directed Orally Twice a day for 5 days Feb, Activesertraline 100 mg oral tablet (20 sources)Serotonin Reuptake InhibitorStart: 03-11-2024 End: 62-21-3434mdjd 2 tablets by mouth once dailysertraline (Zoloft) 100 MG tablet Indications: EDITH (generalized anxiety disorder) , Recurrent major depression in partial remission Take 2 tablets (200 mg) by mouth Daily 180 tablet 1 03/01/2025 05/30/2025 ActiveStart: 26-90-1883ypzr 1.5 tablets by mouth once dailyStart: 74-51-9682cbdg 1.5 tablets by mouth once dailyStart: 09-19-2023 End: 52-97-2393shtf 2 tablets by mouth at bedtimesertraline (Zoloft) 100 MG tablet Indications: Major Depressive Disorder Take 2 tablets (200 mg) bymouth at bedtime 180 tablet 0 09/19/2023 12/18/2023 ActiveStart: 10-22-2019 End: 93-17-0376qngl 1 tablet by mouth once dailySertraline 100 mg Tablet Discontinued 100 MG PO Daily October 22, 2019 12:00am October 15, 2023 5:02pmtake 1.5 tablets by mouth once dailySertraline HCl 100 MG 1.5 tablet Orally Once a day for 30 days ActiveComment on above:sertraline 100 mg tablet TAKE 1 AND 1/2 TABLETS BY MOUTH EVERY DAYtiotropium 0.018 mg inhalation powder (13 sources)Anticholinergictake 1 capsule by inhalation once dailySpiriva HandiHaler 18 MCG 1 capsule by inhaling the contents of the capsule using the HandiHaler device Inhalation Once a day ActivetraZODone hydrochloride 100 mg oral tablet (20 sources)Serotonin Reuptake InhibitorStart: 10-22-2019 End: 98-09-8430cmax 1 tablet by mouth once daily at bedtimetraZODone (DESYREL) 100 mg tablet Take 100 mg by mouth daily at bedtime. 08/10/2022 ActiveComment on above:Take 100 mg by mouth daily at bedtime.Trelegy Ellipta 100-62.5-25 MCG/INH (3 sources)Start: 28-31-8880wqma 1 puff(s) by inhalation once dailyTrelegy Ellipta 100-62.5-25 MCG/INH 1 puff Inhalation Once a day for 30 days Feb, ActiveStart: 64-39-9553Qzjgl: 22-60-5001tiup 1 puff(s) by inhalation once dailyTrelegy Ellipta 100-62.5-25 MCG/INH 1 puff Inhalation Once a day for 30 days Feb, Not-Takingzolpidem tartrate 10 mg oral tablet (13 sources)gamma-Aminobutyric Acid-ergic AgonistStart: 45-14-7760xefy 1 tablet by mouth every twenty-four hoursAmbien 10 MG 1 tablet at bedtime Orally Once a day for 30 days g47.0 Jan, Active{10 (nirmatrelvir 150 MG Oral Tablet) / 10 (ritonavir 100 MG Oral Tablet) } Pack [Paxlovid 150 MG /100 MG Dose Pack] (3 sources)Start: 54-01-5683Vncrw: 51-04-0923Zxehrohz 10 x 150 MG & 10 x 100MG as directed Orally Twice a day for 5 days Feb, Active Completed/Discontinued Medications MedicationDrug Class(es)DatesSig (Normalized)Sig (Original)amoxicillin 875 mg / clavulanate 125 mg oral tablet (3 sources)Penicillin-class AntibacterialStart: 04-09-2023 End: 61-54-7643frxv 1 tablet by mouth twice dailyAmoxicillin-Pot Clavulanate 875-125 mg tablet Discontinued 1 TAB PO Twice daily April 09, 2023 12:00am October 15, 2023 4:56pmdoxepin hydrochloride 50 mg oral capsule (18 sources)Tricyclic AntidepressantStart: 23-05-1182gdws 1 capsule by mouth every twenty-four hoursDoxepin HCl 100 MG 1 capsule at bedtime Orally Once a day for 30 days Nov, ActiveStart: 44-23-6993hdmh 1 capsule by mouth every twenty-four hoursDoxepin HCl 25 MG 1 capsule at bedtime Orally Once a day for 30 day(s) Nov, ActiveStart: 12-04-2021 End: 96-11-3907wzanque capsule 50 mg30 actuat fluticasone furoate 0.1 mg/actuat / vilanterol 0.025 mg/actuat dry powder inhaler (17 sources)Corticosteroid, beta2-Adrenergic AgonistStart: 09-13-2020 End: 61-78-1052Swoyayfhqae Furoate-Vilanterol (Breo Ellipta) 100-25 mcg/dose blister with device Discontinued 1 INH INHALATION Daily September 13, 2020 1:00am October 15, 2023 5:02pmStart: 08-01-2020 End: 92-49-7688isaj 1 puff(s) by mouth once dailyBREO ELLIPTA 100-25 mcg/dose inhaler INHALE 1 PUFF BY MOUTH EVERY DAY 0 11/05/2021 02/09/2022 Discontinued Start: 10-84-5509Aiekacs on above:INHALE 1 PUFF BY MOUTH EVERY DAY methylPREDNISolone (9 sources)CorticosteroidStart: 12-22-2021 End: 41-20-6585nitxdqUGRFKZTrfagm (MEDROL, TEAGAN,) 4 mg Dose-Pack Take as instructed 1 Package 0 12/22/2021 08/15/2022 DiscontinuedStart: 12-22-2021 methylPREDNISolone (MEDROL, TEAGAN,) 4 mg Dose-Pack Take as instructed 1 Package 0 12/22/2021 ActiveComment on above:Take as instructed Iqderhkosamsj-Whceuhya-Kvyzce (MULTIVITAMIN 50 PLUS) tab (9 sources) End: 09-93-4446Mclynjkwsxtei-Minerals-Lutein (MULTIVITAMIN 50 PLUS) tab Take 1 tablet by mouth once daily. 0 08/15/2022 Discontinued Srcawqkxwxtxu-Vuyjflub-Diycbc (MULTIVITAMIN 50 PLUS) tab Take 1 tablet by mouth once daily. 0 ActiveComment on above:Take 1 tablet by mouth once daily. predniSONE 20 mg oral tablet (9 sources)Start: 01-19-2025 End: 48-64-6739mksgiaADVE (Deltasone) 20 MG tablet Indications: Neck pain Twice a day for 3 days, then once a day for 3 days, take with food 9 tablet 01/19/2025 03/01/2025 Discontinued (Therapy completed)Start: 26-02-5570alwmxbNXVE (DELTASONE) 20 mg tablet 60mg x3d, 40mg x3d, 20mg x3d, 10mg x4d 20 tablet 02/26/2024 ActivetraMADol hydrochloride 50 mg oral tablet (4 sources)Opioid AgonistStart: 09-30-2020 End: 19-06-5402ciuv 0.5-1 tablets by mouth every six hours as needed for pain Tramadol (Ultram) 50 mg tablet Discontinued 50 MG PO Q6H as needed for pain 10 03September 30, 2020 1:00am October 15, 2023 5:00pm 1/2 - 1 tab po q 6 hours prn pain Problems Active Problems Problem ClassificationProblemDateDocumented DateEpisodic/ChronicAbdominal hernia (4 sources)Hernia of anterior abdominal wall; Translations: [Ventral hernia without obstruction or gangrene]04-25-6149ZbkvsvbcLxrgckq on above:Problem List clean-up per request of Phys. EHR CmteAbdominal pain (1 source)Unspecified abdominal pain; Translations: [Unspecified abdominal pain] Onset: 64-00-9992XcgypgynAzaiu and unspecified renal failure (2 sources)Acute kidney failure, unspecified; Translations: [KELLIE (acute kidney injury) N17.9]Onset: 05-23-2021 Resolved: 86-37-7987PzknfuebUactnvb disorders (20 sources)Generalized anxiety disorder; Translations: [Generalized anxiety disorder]Onset: 694769-88-8888SuglogiMnwqsgd kidney disease (20 sources)Chronic kidney disease stage 3; Translations: [Chronic kidney disease, stage 3 (moderate)]Onset: 316536-50-4154MeyeljzQghxjct kidney disease (15 sources)Chronic kidney disease; Translations: [Chronic kidney disease, stage 3b]Onset: 05-23-2021 Resolved: 63-85-8642Iwxvvuu obstructive pulmonary disease and bronchiectasis (20 sources)Simple chronic bronchitis; Translations: [Simple chronic bronchitis] Onset: 01-05-2022 Resolved: 48-09-2386RfljprgYkfn; stupor; and brain damage (15 sources)Daytime somnolence; Translations: [Somnolence]Onset: 01-29-2022 Resolved: 80-25-5424GatzklngBvaumqrlyewz of device; implant or graft (20 sources)Arteriosclerosis of coronary artery bypass graft; Translations: [Atherosclerosis of coronary arterybypass graft(s) without angina pectoris] Onset: 05-23-2021 Resolved: 90-94-0059ZzvmzqwGdtxhkzvddork of surgical procedures or medical care (2 sources)Infection following a procedure, other surgical site, initial encounter; Translations: [Infection following a procedure, other surgical site, initial encounter]Onset: 77-62-3009NipiwcgnEqhghdotcw heart failure; nonhypertensive (13 sources)Chronic diastolic heart failure; Translations: [Chronic diastolic (congestive) heart failure]Onset: 976834-44-7386YbkchciQslhnzso atherosclerosis and other heart disease (20 sources)Atherosclerotic heart disease of [place] coronary artery without angina pectoris; Translations: [Coronary arteriosclerosis]Onset: 07-27-2022 ChronicCoronary atherosclerosis and other heart disease (1 source)Presence of aortocoronary bypass graft; Translations: [Hx of CABG] Onset: 02-72-1424AaafohzgTijgpbfumz and other anemia (3 sources)Anemia; Translations: [Anemia, unspecified]23-70-2064Sxbowntj Delirium, dementia, and amnestic and other cognitive disorders (3 sources)Dementia associated with another disease; Translations: [Dementia in other diseases classified elsewhere with behavioral disturbance]ChronicDisorders of lipid metabolism (20 sources)Hyperlipidemia; Translations: [Hyperlipidemia, unspecified]Onset: 07-18-2012 Resolved: 68-92-3759ZhkzippZlvbhwybwpcbgj and diverticulitis (3 sources)Diverticulitis of sigmoid colon; Translations: [Diverticulitis of large intestine without perforation or abscess without bleeding]04-17-2023 ChronicEsophageal disorders (20 sources)Gastroesophageal reflux disease without esophagitis; Translations: [Gastro-esophageal reflux disease without esophagitis]Onset: 07-18-2012 95-45-6145VgqracbUkeooafov hypertension (20 sources)Essential hypertension; Translations: [Essential (primary) hypertension]Onset: 05-28-2014 Resolved: 86-57-9912GgbjbphWmadc and electrolyte disorders (13 sources)Hyperkalemia; Translations: [Hyperkalemia]Onset: 53-57-8719Ayupkegv Headache; including migraine (20 sources)Migraine; Translations: [Migraine, unspecified, not intractable, without status migrainosus]Onset: 653831-52-6480BtojksbWrqer valve disorders (3 sources)Nonrheumatic mitral (valve) insufficiency; Translations: [Non- rheumatic mitral regurgitation ]Onset: 183276-39-5585VlggiafCfyrradqrenb with complications and secondary hypertension (20 sources)Malignant hypertensive chronic kidney disease; Translations: [Hypertensive chronic kidney disease with stage 1 through stage 4 chronic kidney disease, or unspecified chronic kidney disease]Onset: 05-23-2021 Resolved: 24-83-9772BqqoathYsnkoyn and fatigue (20 sources)Fatigue; Translations: [Chronic fatigue, unspecified]ChronicMalaise and fatigue (2 sources)Asthenia; Translations: [Weakness]73-59-1999RusevrqeIyzsq aftercare (2 sources)Encounter for other specified surgical aftercare; Translations: [Encounter for other specified surgical aftercare]Onset: 06-53-7840XxfvfageMrrmi circulatory disease (2 sources)Presence of other vascular implants and grafts; Translations: [Presence of other vascular implants and grafts]Onset: 61-16-9028GtmcnmrJjdhk circulatory disease (2 sources)Disorder of arteries and arterioles, unspecified; Translations: [Disorder of arteries and arterioles, unspecified]Onset: 31-19-1980SokglhhYkqlm circulatory disease (2 sources)Other specified symptoms and signs involving the circulatory and respiratory systems; Translations:[Other specified symptoms and signs involving the circulatory and respiratory systems]Onset: 48-38-9189IncyqlafMeedz circulatory disease (2 sources)Other disorder of circulatory system; Translations: [Other disorder of circulatory system]Onset: 29-93-5059MqwktyiyGbmpt connective tissue disease (2 sources)Pain in right leg; Translations: [Pain in right leg]Onset: 04-23-2025 EpisodicOther connective tissue disease (2 sources)Pain in left leg; Translations: [Pain in left leg]Onset: 04-23-2025 EpisodicOther hereditary and degenerative nervous system conditions (20 sources)Impaired cognition; Translations: [Mild cognitive impairment, so stated]Onset: 88-75-7984CfswfcjLxmri hereditary and degenerative nervous system conditions (1 source)Extrapyramidal and movement disorder, unspecified; Translations: [Movement disorder]Onset: 73-29-8046NplypvkCafrx lower respiratory disease (15 sources)Nodule of lung; Translations: [Solitary pulmonary nodule]Episodic Other lower respiratory disease (3 sources)Solitary pulmonary noduleOnset: 01-05-2022 Resolved: 29-60-7693SaqkzbtoUtjmo lower respiratory disease (2 sources)Other forms of dyspnea; Translations: [ROMAN (dyspnea on exertion)] Onset: 02-27-2022 Resolved: 09-10-6563JllrpopyUhnxt lower respiratory disease (2 sources)Dyspnea on exertion; Translations: [Other forms of dyspnea]04-01-2025 EpisodicOther nervous system disorders (3 sources)Abnormal gait; Translations: [Unspecified abnormalities of gait and mobility]37-45-3326UvkmlzdrLmarz nervous system disorders (2 sources)Impaired mabmcqbyt82-00-2622FplysjakJvcjyqccsf and visceral atherosclerosis (20 sources)Atherosclerosis of arteries of the extremities; Translations: [Unspecified atherosclerosis of [place] arteries of extremities, unspecified extremity]Onset: 616149-30-6654GivphuvXoynwycma heart disease (10 sources)Pulmonary hypertension; Translations: [Pulmonary hypertension, unspecified]Onset: 433756-84-7685VvhwnegDmdwszil codes; unclassified (11 sources)Sleep apnea; Translations: [Sleep apnea, unspecified]ChronicResidual codes; unclassified (1 source)Sleep apnea, unspecifiedOnset: 02-27-2022 Resolved: 67-09-0021HpehcreNhwbnehb codes; unclassified (6 sources)Obstructive sleep apnea syndrome; Translations: [Obstructive sleep apnea (adult) (pediatric)]80-16-1517ReetbtsLnnnhynk codes; unclassified (1 source)Obstructive sleep apnea (adult) (pediatric)ChronicResidual codes; unclassified (1 source)Obstructive sleep apnea (adult)(pediatric); Translations: [Obstructive sleep apnea (adult) (pediatric)]Onset: 86-27-8057ZhzaunfKogptvxr codes; unclassified (11 sources)History of lung lobectomy; Translations: [Acquired absence of lung [part of]]EpisodicResidual codes; unclassified (2 sources)Acquired absence of lung [part of]Onset: 02-27-2022 Resolved: 00-96-3716WssymherJimdbowo codes; unclassified (4 sources)Amnesia; Translations: [Other amnesia]67-54-3192DzpwevglJxxiygms codes; unclassified (1 source)Other amnesia; Translations: [Memory loss]Onset: 22-19-2750Amwhqbjf Residual codes; unclassified (1 source)Memory impairment; Translations: [Other amnesia]26-31-6299NyfxvfapCmbw and subcutaneous tissue infections (2 sources)Cellulitis, unspecified; Translations: [Cellulitis, unspecified] Onset: 58-38-7140NonjtxaeRthmzzuuxbp; intervertebral disc disorders; other back problems (20 sources)Cervical spondylosis; Translations: [Spondylosis without myelopathy or radiculopathy, cervical region]Onset: 881770-81-2683ZjqwggbEhprbpadjcve (2 sources)Consult; Translations: [Consult]Onset: 04-21-2025 Past or Other Problems Problem ClassificationProblemDateDocumented DateEpisodic/ChronicCancer of bronchus; lung (20 sources)History of malignant neoplasm of thoracic cavity structure; Translations: [Personal history of other malignant neoplasm of bronchus and lung]Onset: 02-27-2022 Resolved: 19-62-7864KjsxvyebRpfnxgaokj and other anemia (5 sources)Anemia, unspecified; Translations: [Anemia, unspecified]Onset: 631718-24-5135DopxenekTuvupegs of upper limb (20 sources)Closed fracture proximal humerus, greater tuberosity; Translations: [Nondisplaced fracture of greater tuberosity of left humerus, subsequent encounter for fracture with routine healing]Onset: 268526-64-7024Fjlgvsrb Mood disorders (20 sources)Depressive disorder; Translations: [Depression, unspecified depression type]Onset: 12-18-2021 Resolved: 12-32-1785NyjzmuyNubbyyviiij chest pain (2 sources)Chest pain; Translations: [Chest pain, unspecified]Onset: 09-18-2013 26-23-2333MjvtuqlhOpyai connective tissue disease (20 sources)Recurrent falls ; Translations: [Repeated falls]Onset: 06-17-2024 29-56-6792AhsklbprLsgtp connective tissue disease (2 sources)Repeated falls; Translations: [Repeated falls]Onset: 10-13-2024 EpisodicOther lower respiratory disease (7 sources)Shortness of breath; Translations: [SHORTNESS OF BREATH]Onset: 12-26-2021 Resolved: 78-67-3516JbonycfvEkryr lower respiratory disease (16 sources)Dyspnea; Translations: [Shortness of breath]Onset: 09-18-2013 EpisodicOther lower respiratory disease (2 sources)Dyspnea, unspecified; Translations: [Dyspnea, unspecified]Onset: 06-38-9207StpmnlwhVopia nervous system disorders (20 sources)Functional gait abnormality; Translations: [Other abnormalities of gait and mobility]Onset: 654221-80-4114WydubvhuAijbj nervous system disorders (2 sources)Other abnormalities of gait and mobility; Translations: [Other abnormalities of gait and mobility]Onset: 26-00-0238HbovxisbOszlw screening for suspected conditions (not mental disorders or infectious disease) (2 sources)Abnormal results of cardiovascular function studies; Translations: [Abnormal result of cardiovascular function study, unspecified]Onset: 09-30-2013 65-39-1251MsmsuoqlBscybwaucrm; intervertebral disc disorders; other back problems (20 sources)Neck pain; Translations: [Cervicalgia]Onset: EpisodicSprains and strains (20 sources)Strain of muscle(s) and tendon(s) of the rotator cuff of left shoulder, subsequent encounter; Translations: [Other specified aftercare]Onset: 020217-68-0099Alntxpgu Results Test NameValueInterpretationReference AjdhkNroxxmtc09ec 63-09-342307Sed patient is Moderately Stable - Low risk of patient condition declining or worsening Problem: Pain - Adult Goal: Verbalizes/displays adequate comfort level or baseline comfort level Outcome: Progressing Flowsheets (Taken 06/19/2025 0500) Verbalizes/displays adequate comfort level or baseline comfort level: Encourage patient to monitor pain and request assistance Administer analgesics based on type and severity of pain and evaluate response Assess pain using appropriate pain scale Problem: Safety - Adult Goal: Free from fall injury Outcome: Progressing Flowsheets (Taken 06/19/2025 0500) Free from fall injury: Assess patient frequently for physical needs [place] fall precautions as indicated by assessment Instruct patient to call for assistance with activity based on assessment Modify environment to reduce risk of injury Problem: Discharge Planning Goal: Discharge to home or other facility with appropriate resources Outcome: Progressing Flowsheets (Taken 06/19/2025 0500) Discharge to home or other facility with appropriate resources: Identify barriers to discharge with patient and caregiver Identify discharge learning needs (meds, wound care, etc) Problem: Chronic Conditions and Co-morbidities Goal: Patient's chronic conditions and co-morbidity symptoms are monitored and maintained or improved Outcome: Progressing Flowsheets (Taken 06/19/2025 0500) Care Plan - Patient's Chronic Conditions and Co-Morbidity Symptoms are Monitored and Maintained or Improved: Monitor and assess patient's chronic conditions and comorbid symptoms for stability, deterioration, or improvement Collaborate with multidisciplinary team to address chronic and comorbid conditions and prevent exacerbation or deterioration The patient's goals for the shift include rest and comfort The clinical goals for the shift include vss, safety, and comfortNormal [facility] CenterMAGNESIUMon 96-13-2963Qeabpgvdy [Mass/Vol]1.7 mg/dLLow1.9-2.7UnCincinnati Children's Hospital Medical CenterComment on above:Performed By: #### [id number] ####[facility] ([facility])[address] [place] [address] 30on [id number] Case Management Update Multidisciplinary rounds have been completed. Barriers to Discharge: Patient is medically ready for hospital discharge at this time. AVS has been completed, and primary RN has been notified of patients discharge readiness. Vascular Surgery has ordered a home wound vac for patient. [facility] has hand faxed necessary documentation for home wound vac approval, and will await confirmation. [facility] will continue to follow and provide any updates on discharge. 1749: [facility] able to access [employer] online system to check status of patients ready. Currently system is not showing an approved home vac. [facility] is currently in communication with [facility] patient it support analyst to clarify. [facility] will provide updates as able. Diet: Dietary Orders (From admission, onward) Start Ordered 06/15/252142 Regular Diet Diet effective now Question: Room Service? Answer: Yes 06/15/252144 Physician Expected Discharge Date: 06/18/2025 Discharge Delays: PT Six Click Score: OT Six Click Score: PT Recommendations: OT Recommendations: Does patient understand post acute plan of care? Yes Is expected discharge disposition appropriate for patient?: Yes New Consults:NormalUnCincinnati Children's Hospital Medical Center30The patient is Moderately Stable - Low risk of patient condition declining or worsening The patient's goals for the shift include comfort The clinical goals for the shift include comfortNormalUniversLutheran HospitalBASIC METABOLIC PANELon 80-81-8111Hivst gap [Moles/Vol]13 mmol/L Normal7-20UnCincinnati Children's Hospital Medical CenterComment on above:Performed By: #### [id number] #### [facility] ([facility]) [address] [place] [address]Dnikhlq [Mass/Vol]8.6 mg/dLNormal8.6-10.3UnCincinnati Children's Hospital Medical CenterComment on above:Performed By: #### [id number] #### [facility] ([facility]) [address] [place] [address]Dyydadcz [Moles/Vol]111 mmol/RTipg35-288ZzakroturaCincinnati Children's Hospital Medical CenterComment on above:Performed By: #### [id number] #### [facility] ([facility]) [address] [place] [address]IJ5 [Moles/Vol]21 mmol/FSszgvs32-37YdzjjhwpxzCincinnati Children's Hospital Medical CenterComment on above:Performed By: #### [id number] #### [facility] ([facility]) [address] [place], [place] [address]Wumsystnng [Mass/Vol]1.57 mg/dLHigh0.70-1.30UnCincinnati Children's Hospital Medical CenterComment on above:Performed By: #### [id number] #### [facility] ([facility]) [address] [place] [address]UOJJGISNWT FILTRATION RATE ML/MIN/1.73 SQ M.INDPFRBRT93.5 mL/min/1.73m*2Low>60.0UnCincinnati Children's Hospital Medical CenterComment on above:Result Comment: [facility]???s estimated glomerular filtration rate (eGFR) [...] potential consequences that do not disproportionately affect anyone group of individuals.Performed By: #### [id number] #### [facility] ([facility]) [address] [place], [place] [address]Mgpztet [Mass/Vol]102 mg/cCHnrr70-757LcnspgqxgaCincinnati Children's Hospital Medical CenterComment on above:Performed By: #### [id number] #### [facility] ([facility]) [address] [place] [place], [place] [address]Dahcfujfp [Moles/Vol]4.5 mmol/LNormal3.5-5.1UnCincinnati Children's Hospital Medical CenterComment on above:Performed By: #### [id number] #### [facility] ([facility]) [address] [place] [place], [place] [address]Cikyll [Moles/Vol]140 mmol/GCnwuki335-203FuutgtltksCincinnati Children's Hospital Medical CenterComment on above:Performed By: #### [id number] #### [facility] ([facility]) [address] [place] [place], [place] [address]Gwnl nitrogen [Mass/Vol]26 mg/dLHigh7-25UnCincinnati Children's Hospital Medical CenterComment on above:Performed By: #### [id number] #### [facility] ([facility]) [address], [place] [address]RTKD NITROGEN/CREATININE (MASS RATIO) IN SER/PLAS16.6Normal [facility] Medical CenterComment on above:Performed By: #### [id number] #### [facility] ([facility]) [address] [place] [place], [place] [address]ELPfn 65-58-9454Bskomwmmuhe distribution width (RBC) [Ratio]15.2 %High11.5-15.0UnCincinnati Children's Hospital Medical CenterComment on above:Performed By: #### [id number] #### [facility] ([facility]) [address] [facility] [place], [place] [address]FNCLJASDMVV MEAN CORPUSCULAR HEMOGLOBIN CONCENTRATION (G/DL) BY GBYRMHPXX97.9 g/dLLow32.0-35.0UnCincinnati Children's Hospital Medical CenterComment on above:Performed By: #### [id number] #### [facility] ([facility]) [address] [place], [place] [address]Kuusupwfsi (Bld) [Volume fraction]26.0 %Low39.0-50.0UnCincinnati Children's Hospital Medical CenterComment on above:Performed By: #### [id number] #### [facility] ([facility]) [address] [place] [address]Wdwoppixns (Bld) [Mass/Vol]8.3 g/dLLow13.0-17.0UnCincinnati Children's Hospital Medical CenterComment on above:Performed By: #### [id number] #### [facility] ([facility]) [address] [place] [address]DKG (RBC) [Entitic mass]30.6 diSulmuw92.0-33.0UnCincinnati Children's Hospital Medical CenterComment on above:Performed By: #### [id number] #### [facility] ([facility]) [address] [place] [address]BKR (RBC) [Entitic vol]95.9 sIFyqmpf66.0-98.0UnCincinnati Children's Hospital Medical CenterComment on above:Performed By: #### [id number] #### [facility] ([facility]) [address] [place] [address]FRURTPTEI (10*3/UL) IN BLOOD AUTOMATED [id number] 10*3/uLNormal 150-400UnCincinnati Children's Hospital Medical CenterComment on above:Performed By: #### [id number] #### [facility] ([facility]) [address] [place] [address]OIQ (Bld) [#/Vol]2.71 10*6/uLLow4.20-5.70UnCincinnati Children's Hospital Medical CenterComment on above:Performed By: #### [id number] #### [facility] ([facility]) [address] [place] [address]RVA (Bld) [#/Vol]4.32 10*3/uLNormal4.00-10.60UnCincinnati Children's Hospital Medical CenterComment on above:Performed By: #### [id number] #### [facility] ([facility]) [address] [place] [address]VCoj 29-13-4070BQGkuxmijsh Admitted 06/15/2025 for Cellulitis Discharge Diagnosis Cellulitis Discharge Disposition Home or Self Care (01) Home with Home health care for wound VAC dressing changes weekly Discharge Medications Your medication list CONTINUE taking these medications Instructions Last Dose Given Next Dose Due acetaminophen 500 mg tablet Commonly known as: Tylenol Extra Strength Take 2 tablets (1,000 mg) by mouth every 6 (six) hours if needed for moderate pain (4-7 pain score). albuterol 90 mcg/actuation inhaler amLODIPine 5 mg tablet Commonly known as: Norvasc aspirin 81 mg EC tablet atorvastatin 80 mg tablet Commonly known as: Lipitor buPROPion XL 300 mg 24 hr tablet Commonly known as: Wellbutrin XL busPIRone 15 mg tablet Commonly known as: Buspar clopidogrel 75 mg tablet Commonly known as: Plavix famotidine 20 mg tablet Commonly known as: Pepcid fenofibrate micronized 43 mg capsule Commonly known as: Antara metoprolol tartrate 50 mg tablet Commonly known as: Lopressor nitroglycerin 0.4 mg SL tablet Commonly known as: Nitrostat OLANZapine 5 mg tablet Commonly known as: ZyPREXA rivaroxaban 2.5 mg tablet Commonly known as: Xarelto Take 1 tablet (2.5 mg) by mouth two times daily for 197 doses. sertraline 100 mg tablet Commonly known as: Zoloft sodium zirconium cyclosilicate 10 gram packet Commonly known as: Lokelma Take 10 g by mouth 3 (three) times a week. traZODone 100 mg tablet Commonly known as: Desyrel Trelegy Ellipta 100-62.5-25 mcg blister with device Generic drug: nahcnpywtxq-ycaxlhqcq-iisfdjwi Activity May shower day of wound vac dressing change Diet Continue on the same type of diet and foods as you were eating before your admission. Drink plenty of water. Allergies Patient has no known allergies. Hospital Course Kel Castillo is a 70 year old male that initially presented to the emergency department on 06/12/2025 after a wound check in the clinic, 4 days after a right femoral-popliteal bypass for peripheral artery disease. At that time, the wound was erythematous and bloody with serosanguinous drainage and edema of the right leg. The patient was admitted to the hospital under the vascular team for monitoring. Cefepime was started for broad spectrum antibiotic coverage, and Xarelto, Aspirin, and Plavix were continued for anticoagulation. The patient also received a short course of vancomycin. His surgical wounds were examined daily with dressing changes, and there was wound dehiscence noted on 06/16/2025 without expressible drainage. Over the course of his hospital stay, the wound appeared to improve with decreased erythema, bleeding, and drainage. The patient will be discharged to home on oral antibiotics and anticoagulation. This is a summarization of the hospital course. More information can be found within the patient's chart.Kel Castillo is a 70 y.o. White male with PMH of PAD, CAD, COPD, dyslipidemia and recent right fem to above knee pop bypass with graft on 06/07. He reports he initially was having some serosanguinous drainage from the incision and was seen in wound clinic for this. Today, he reports more purulent drainage as well as erythema surrounding the incision, prompting presentation to ER. He otherwise endorses decreased appetite and RLE swelling. Denies fevers, chills. Denies increased pain. He is currently on ASA, plavix and xarelto. He has been taking these. Was not receiving any antibiotics. Pertinent Physical Exam At Time of Discharge Physical Exam Constitutional: Appearance: Normal appearance. HENT: Head: Normocephalic and atraumatic. Cardiovascular: Rate and Rhythm: Normal rate and regular rhythm. Pulses: Carotid pulses are 2+ on the right side and 2+ on the left side. Femoral pulses are 2+ on the right side and 2+ on the left side. Dorsalis pedis pulses are 2+ on the right side and 2+ on the left side. Pulmonary: Effort: Pulmonary effort is normal. No respiratory distress. Abdominal: General: There is no distension. Palpations: Abdomen is soft. Tenderness: There is no abdominal tenderness. Musculoskeletal: Right lower le+ Edema present. Skin: General: Skin is warm and dry. Comments: Right groin and right thigh surgical site dehiscence. Mild erythema noted but no malodor, purulent drainage or flucutance or bogginess Neurological: General: No focal deficit present. Mental Status: He is alert and oriented to person, place, and time. Mental status is at baseline. Psychiatric: Mood and Affect: Mood normal. Behavior: Behavior normal. Thought Content: Thought content normal. Lab Results Labs Reviewed WOUND CULTURE - Abnormal Result Value Wound Culture Light Growth Enterobacter cloacae complex (*) Gram Stain Result No polymorphonuclear leukocytes seen Gram Stain Result Moderate Gram negative bacilli Narrative: With light growth consistent with sk (more content not included)...Normal [facility] CenterMAGNESIUMon 07-05-7058Nmqumbcuv [Mass/Vol]1.9 mg/dLNormal1.9-2.7UnCincinnati Children's Hospital Medical CenterComment on above:Performed By: #### [id number] ####[facility] ([facility])[address] [place], [place] [address]VAVZ GLUCOSE METER UNSOLICITED RESULTSon 70-09-3934Fsjzmiw [Mass/Vol]128 mg/sFRjrg85-362ApkpqxkvapCincinnati Children's Hospital Medical CenterComment on above:Order Comment: Waived Testing in the ED is performed under the ED CLIA certificate #[id number].Result Comment: [id number] By: #### [id number] ####[facility] ([facility])[address], [place] [address]dj [phone] Case Management Update Multidisciplinary rounds have been completed. Barriers to Discharge: Per vascular daily dressing with betadine guaze and adaptic. Wound cultures pending. Continue IV Cefipime and Flagyl. From home alone. Diet: Dietary Orders (From admission, onward) Start Ordered 06/15/252142 Regular Diet Diet effective now Question: Room Service? Answer: Yes 06/15/252144 Physician Expected Discharge Date: 06/17/2025 Discharge Delays: PT Six Click Score: OT Six Click Score: PT Recommendations: OT Recommendations: Is expected discharge disposition appropriate for patient?: Yes New Consults:NormalTogus VA Medical CenterBASIC METABOLIC PANELon 61-57-2516Yzmfz gap [Moles/Vol]12 mmol/LNormal7-20UnCincinnati Children's Hospital Medical CenterComment on above:Performed By: #### [id number] #### [facility] ([facility]) [address] [place], [place] [address]Qcetbjy [Mass/Vol]8.1 mg/dLLow8.6-10.3UnCincinnati Children's Hospital Medical CenterComment on above:Performed By: #### [id number] #### [facility] ([facility] [address] [place] [address]Hhjojsbz [Moles/Vol]110 mmol/YWthi42-024YihqfzsdrhCincinnati Children's Hospital Medical CenterComment on above:Performed By: #### [id number] #### [facility] ([facility]) [address] [place] [address]CP0 [Moles/Vol]21 mmol/CCooihr33-58OkkfwjnfckCincinnati Children's Hospital Medical CenterComment on above:Performed By: #### [id number] #### [facility] ([facility]) [address] [place] [address]Dsowkxbage [Mass/Vol]1.76 mg/dLHigh0.70-1.30UnCincinnati Children's Hospital Medical CenterComment on above:Performed By: #### [id number] #### [facility] ([facility]) [address] [place], [place] [address]FNVTUCNWGQ FILTRATION RATE ML/MIN/1.73 SQ M.BPFIYHZCC67.6 mL/min/1.73m*2Low>60.0UnCincinnati Children's Hospital Medical CenterComment on above:Result Comment: [facility]???s estimated glomerular filtration rate (eGFR) [...] potential consequences that do not disproportionately affect anyone group of individuals.Performed By: #### [id number] #### [facility] ([facility]) [address] [place] [address]Fhmijwx [Mass/Vol]153 mg/oGPnmw27-882PkqibsoywqCincinnati Children's Hospital Medical CenterComment on above:Performed By: #### [id number] #### [facility] ([facility]) [address] [place], [place] [address]Jtvreucsi [Moles/Vol]4.1 mmol/LNormal3.5-5.1UnCincinnati Children's Hospital Medical CenterComment on above:Performed By: #### [id number] #### [facility] ([facility]) [address] [place], [place] [address]Ypuhkv [Moles/Vol]139 mmol/NCelksx160-916YhxcucbuhrCincinnati Children's Hospital Medical CenterComment on above:Performed By: #### [id number] #### [facility] ([facility]) [address] [place] [place], [place] [address]Oogr nitrogen [Mass/Vol]26 mg/dLHigh7-25UnCincinnati Children's Hospital Medical CenterComment on above:Performed By: #### [id number] #### [facility] ([facility]) [address] [place], [place] [address]ZAMC NITROGEN/CREATININE (MASS RATIO) IN SER/PLAS14.8Normal [facility] Medical CenterComment on above:Performed By: #### [id number] #### [facility] ([facility]) [address] [place], [place] [address]QSNls 52-96-4017Vfkqsrbiuvp distribution width (RBC) [Ratio]15.1 %High11.5-15.0UnCincinnati Children's Hospital Medical CenterComment on above:Performed By: #### [id number] #### [facility] ([facility]) [address] [place], [place] [address]IRRDLBPANWQ MEAN CORPUSCULAR HEMOGLOBIN CONCENTRATION (G/DL) BY CCGDSVAJW44.2 g/dLLow32.0-35.0UnCincinnati Children's Hospital Medical CenterComment on above:Performed By: #### [id number] #### [facility] ([facility]) [address] [place], [place] [address]Idursbepve (Bld) [Volume fraction]26.3 %Low39.0-50.0UnCincinnati Children's Hospital Medical CenterComment on above:Performed By: #### [id number] #### [facility] ([facility]) [address] [place], [place] [address]Giypkvbewt (Bld) [Mass/Vol]8.2 g/dLLow13.0-17.0UnCincinnati Children's Hospital Medical CenterComment on above:Performed By: #### [id number] #### [facility] ([facility]) [address] [place] [address]KYN (RBC) [Entitic mass]30.3 xkGeogko09.0-33.0UnCincinnati Children's Hospital Medical CenterComment on above:Performed By: #### [id number] #### [facility] ([facility]) [address] [place], [place] [address]OYZ (RBC) [Entitic vol]97.0 cWUytrmw73.0-98.0UnCincinnati Children's Hospital Medical CenterComment on above:Performed By: #### [id number] #### [facility] ([facility]) [address] [place] [place] [address]QFPPZRZEM (10*3/UL) IN BLOOD AUTOMATED [id number] 10*3/uLNormal 150-400UnCincinnati Children's Hospital Medical CenterComment on above:Performed By: #### [id number] #### [facility] ([facility]) [address] [place], [place] [address]FNJ (Bld) [#/Vol]2.71 10*6/uLLow4.20-5.70UnCincinnati Children's Hospital Medical CenterComment on above:Performed By: #### [id number] #### [facility] ([facility]) [address] [place], [place] [address]RVR (Bld) [#/Vol]3.91 10*3/uLLow4.00-10.60UnCincinnati Children's Hospital Medical CenterComment on above:Performed By: #### [id number] #### [facility] ([facility]) [address] [place] [place] [address]BVDMGSLDPlg 62-06-2023Spgqmzbzc [Mass/Vol]2.0 mg/dLNormal1.9-2.7 [facility] CenterComment on above:Performed By: #### [id number] #### [facility] ([facility]) [address] [place], [place] [address]DAVEPHQGNJ TIMEDon 21-65-3413YEREPVOIRY IN SER/PLAS - TIMED16.7 Low20.0-40.0UnCincinnati Children's Hospital Medical CenterComment on above:Performed By: #### [id number] #### [facility] ,30on [id number] patient is Moderately Stable - Low risk of patient condition declining or worsening The patient's goals for the shift include comfort The clinical goals for the shift include vss, comfort Over the shift, the patient did not make progress toward the following goals. Barriers to progression include need to identify appropriate antibiotic for discharge. Recommendations to address these barriers include continued monitoring and treatment until appropriate for discharge.NormalUnCincinnati Children's Hospital Medical Center30Daily Case Management Update Multidisciplinary rounds have been completed. Barriers to Discharge: READMIT. Patient was recently admitted for a fem pop bypass on 06/07. Patient reports the incision purulent drainage and erythema. IV Cefipime and Flagyl started. Cultures pending. From home alone. Diet: Dietary Orders (From admission, onward) Start Ordered 06/15/252142 Regular Diet Diet effective now Question: Room Service? Answer: Yes 06/15/252144 Physician Expected Discharge Date: 06/17/2025 Discharge Delays: PT Six Click Score: OT Six Click Score: PT Recommendations: OT Recommendations: Is expected discharge disposition appropriate for patient?: Yes New Consults: Consult Orders (From admission, onward) Start Ordered 06/15/252034 Inpatient consult to Vascular Surgery Once Specialty: Vascular Surgery Provider: (Not yet assigned) Question Answer Comment [employer] VASCULAR SURGERY TEAM Reason for Consult? wound infection Level of Consultation Consultation and Management 06/15/252033[facility]The patient is Moderately Stable - Low risk of patient condition declining or worsening The patient's goals for the shift include rest The clinical goals for the shift include vss comfortNormalUniAshtabula County Medical CenterBASIC METABOLIC PANELon 77-05-6194Lbcar gap [Moles/Vol]10 mmol/L Normal7-20UnCincinnati Children's Hospital Medical CenterComment on above:Performed By: #### [id number] #### [facility]) [address] [place], [place] [address]Hjguidy [Mass/Vol]8.3 mg/dLLow8.6-10.3UnCincinnati Children's Hospital Medical CenterComment on above:Performed By: #### [id number] #### [facility] ([facility]) [address] [place] [address]Dpffzagu [Moles/Vol]109 mmol/CYhgw30-016GdupqmxpbdCincinnati Children's Hospital Medical CenterComment on above:Performed By: #### [id number] #### [facility] ([facility]) [address] [place] [address]RT4 [Moles/Vol]24 mmol/PZuuxpd77-45FrsqjymbqgCincinnati Children's Hospital Medical CenterComment on above:Performed By: #### [id number] #### [facility] ([facility]) [address] [place] [address]Pphmszzgpg [Mass/Vol]1.70 mg/dLHigh0.70-1.30UnCincinnati Children's Hospital Medical CenterComment on above:Performed By: #### [id number] #### [facility] ([facility]) [address] [place] [address]WBZWUYVKMT FILTRATION RATE ML/MIN/1.73 SQ M.YUPEIAIUD13.3 mL/min/1.73m*2Low>60.0UnCincinnati Children's Hospital Medical CenterComment on above:Result Comment: [facility]???s estimated glomerular filtration rate (eGFR) [...] potential consequences that do not disproportionately affect anyone group of individuals.Performed By: #### [id number] #### [facility] ([facility]) [address] [place] [address]Mrppaem [Mass/Vol]92 mg/xHLvmadq49-059ZhwxhmpljjCincinnati Children's Hospital Medical CenterComment on above:Performed By: #### [id number] #### [facility] ([facility]) [address] [place], [place] [address]Lsyytmcwu [Moles/Vol]4.1 mmol/LNormal3.5-5.1UnCincinnati Children's Hospital Medical CenterComment on above:Performed By: #### [id number] #### [facility] ([facility]) [address] [place], [place] [address]Hfgaoo [Moles/Vol]139 mmol/QBosycx879-569EpsjfhojnqCincinnati Children's Hospital Medical CenterComment on above:Performed By: #### [id number] #### [facility] ([facility]) [address] [place], [place] [address]Gmez nitrogen [Mass/Vol]27 mg/dLHigh7-25UnCincinnati Children's Hospital Medical CenterComment on above:Performed By: #### [id number] #### [facility] ([facility]) [address] [place], [place] [address]NURB NITROGEN/CREATININE (MASS RATIO) IN SER/PLAS15.9Normal [facility] Medical CenterComment on above:Performed By: #### [id number] #### [facility] ([facility]) [address] [place] [address]CQJml 59-74-8268Aszrshupzam distribution width (RBC) [Ratio]15.1 %High11.5-15.0UnCincinnati Children's Hospital Medical CenterComment on above:Performed By: #### [id number] #### [facility] ([facility]) [address] [place], [place] [address]QLTASNWQRTC MEAN CORPUSCULAR HEMOGLOBIN CONCENTRATION (G/DL) BY QWZOYXAPW96.9 g/dLLow32.0-35.0UnCincinnati Children's Hospital Medical CenterComment on above:Performed By: #### [id number] #### [facility] ([facility]) [address] [place] [place], [place] [address]Uaiznhzhxe (Bld) [Volume fraction]26.5 %Low39.0-50.0UnCincinnati Children's Hospital Medical CenterComment on above:Performed By: #### [id number] #### [facility] ([facility]) [address] [place] [address]Rqjlwivvad (Bld) [Mass/Vol]8.2 g/dLLow13.0-17.0UnCincinnati Children's Hospital Medical CenterComment on above:Performed By: #### [id number] #### [facility] ([facility]) [address] [place] [address]XLG (RBC) [Entitic mass]30.3 xzMrhlrc89.0-33.0UnCincinnati Children's Hospital Medical CenterComment on above:Performed By: #### [id number] #### [facility] ([facility]) [address] [place] [address]PGB (RBC) [Entitic vol]97.8 nIWtmail16.0-98.0[facility] Medical CenterComment on above:Performed By: #### [id number] #### [facility] ([facility]) [address] [place], [place] [address]FENERLFIC (10*3/UL) IN BLOOD AUTOMATED [id number] 10*3/uLLow 150-400UnCincinnati Children's Hospital Medical CenterComment on above:Performed By: #### [id number] #### [facility] ([facility]) [address] [place] [address]XDR (Bld) [#/Vol]2.71 10*6/uLLow4.20-5.70UnCincinnati Children's Hospital Medical CenterComment on above:Performed By: #### [id number] #### [facility] ([facility]) [address] [place] [address]RQS (Bld) [#/Vol]3.85 10*3/uLLow4.00-10.60UnCincinnati Children's Hospital Medical CenterComment on above:Performed By: #### [id number] #### [facility] ([facility]) [address] [place] [address]WFTJPSCFUgh 03-79-4444Chcfgtemz [Mass/Vol]1.9 mg/dLNormal1.9-2.7 [facility] CenterComment on above:Performed By: #### [id number] ####[facility] ([facility])[address] [place], [place] [address]LQTXQYJMZB TIMED on 28-95-9718KPICOSUWKX IN SER/PLAS - TIMED8.7Low20.0-40.0UnCincinnati Children's Hospital Medical CenterComment on above:Performed By: #### [id number] ####[facility] ([facility])[address] [place], [place] [address]YDYMG METABOLIC PANELon 06-15-2025 Anion gap [Moles/Vol]9 mmol/LNormal7-20UnCincinnati Children's Hospital Medical Center Comment on above:Performed By: #### [id number] #### [facility] ([facility]) [address] [place], [place] [address]Kcqytzk [Mass/Vol]8.2 mg/dLLow8.6-10.3UnCincinnati Children's Hospital Medical CenterComment on above:Performed By: #### [id number] #### [facility] ([facility]) [address] [place], [place] [address]Fhssqlig [Moles/Vol]106 mmol/NLqoygz86-280JwglwyxghzCincinnati Children's Hospital Medical CenterComment on above:Performed By: #### [id number] #### [facility] ([facility]) [address] [place], [place] [address]LR5 [Moles/Vol]24 mmol/SWpqxkp51-37AdxsygoncqCincinnati Children's Hospital Medical CenterComment on above:Performed By: #### [id number] #### [facility] ([facility]) [address] [place], [place] [address]Ppjeonfidk [Mass/Vol]1.99 mg/dLHigh0.70-1.30UnCincinnati Children's Hospital Medical CenterComment on above:Performed By: #### [id number] #### [facility] ([facility]) [address] [place], [place] [address]BOSCJTULLO FILTRATION RATE ML/MIN/1.73 SQ M.QPRBGWIRS33.0 mL/min/1.73m*2Low>60.0UnCincinnati Children's Hospital Medical CenterComment on above:Result Comment: [facility]???s estimated glomerular filtration rate (eGFR) [...] potential consequences that do not disproportionately affect anyone group of individuals.Performed By: #### [id number] #### [facility] ([facility]) [address] [place], [place] [address]Zghpobx [Mass/Vol]121 mg/kFBjiz77-368RldarqmpphCincinnati Children's Hospital Medical CenterComment on above:Performed By: #### [id number] #### [facility] ([facility]) [address] [place], [place] [address]Ncyriueur [Moles/Vol]3.9 mmol/LNormal3.5-5.1UnCincinnati Children's Hospital Medical CenterComment on above:Performed By: #### [id number] #### [facility] ([facility]) [address] [place], [place] [address]Evgdxh [Moles/Vol]135 mmol/KSkw600-837DexpleasjwCincinnati Children's Hospital Medical CenterComment on above:Performed By: #### [id number] #### [facility] ([facility]) [address] [place], [place] [address]Ljnr nitrogen [Mass/Vol]29 mg/dLHigh7-25UnCincinnati Children's Hospital Medical CenterComment on above:Performed By: #### [id number] #### [facility] ([facility]) [address] [place] [place], [place] [address]NVHA NITROGEN/CREATININE (MASS RATIO) IN SER/PLAS14.6Normal [facility] CenterComment on above:Performed By: #### [id number] #### [facility] ([facility]) [address] [place], [place] [address]XLLPC CULTUREon 11-27-1007Bkjqdiol identified Cx Nom (Bld)No growth at 5 daysNormalUniAshtabula County Medical CenterComment on above:Order Comment: Prior to antibiotic administrationPerformed By: #### [id number] ####[facility] ([facility])[address] [place] [address]HPQ WITH AUTO DIFFERENTIALon 05-79-9537Fuiydblyh (Bld) [#/Vol]0.03 10*3/uLNormal0.00-0.20 [facility] CenterComment on above:Performed By: #### [id number] ####[facility] ([facility])[address] [facility] [place] [address]Hhftexeci/100 WBC (Bld)0.8 %Normal0.0-1.0UnCincinnati Children's Hospital Medical CenterComment on above: Performed By: #### [id number] ####[facility] ([facility])[address] [facility] [place], [place] [address]Uwtnrkyrine (Bld) [#/Vol]0.16 10*3/uLNormal0.00-0.50 [facility] CenterComment on above:Performed By: #### [id number] ####[facility] ([facility])[address] [place], [place] [address]Kfyqcpffowv/100 WBC (Bld)4.1 %Normal0.0-6.0UnCincinnati Children's Hospital Medical CenterComment on above: Performed By: #### [id number] ####[facility] ([facility])[address] [place], [place] [address]Waakvnahodz distribution width (RBC) [Ratio]14.9 %Normal 11.5-15.0UnCincinnati Children's Hospital Medical CenterComment on above:Performed By: #### [id number] ####[facility] ([facility])[address] [place] [address] ERYTHROCYTE MEAN CORPUSCULAR HEMOGLOBIN CONCENTRATION (G/DL) BY XXVSPZJBV94.7 g/pVBdmnau64.0-35.0UnCincinnati Children's Hospital Medical CenterComment on above:Performed By: #### [id number] ####[facility] [facility] [place], [place] [address]Pipblhnsio (Bld) [Volume fraction]26.0 %Low39.0-50.0UnCincinnati Children's Hospital Medical CenterComment on above:Performed By: #### [id number] ####[facility] ([facility])[address] [place], [place] [address]Tiduvsfubf (Bld) [Mass/Vol]8.5 g/dLLow 13.0-17.0UnCincinnati Children's Hospital Medical CenterComment on above:Performed By: #### [id number] ####[facility] ([facility])[address] [facility] [place] [address]Rrbjsrls granulocytes (Bld) [#/Vol]0.11 10*3/uLNormal0.00-0.20UnCincinnati Children's Hospital Medical CenterComment on above:Performed By: #### [id number] ####[facility] ([facility])[address] [facility] [place] [address]Dhqucmtx granulocytes/100 WBC (Bld)2.8 %High0.0-1.0UnCincinnati Children's Hospital Medical CenterComment on above:Performed By: #### [id number] ####[facility] ([facility])[address] [facility] [place] [place] [address] Lymphocytes (Bld) [#/Vol]0.68 10*3/uLLow1.20-4.00UnCincinnati Children's Hospital Medical CenterComment on above:Performed By: #### [id number] ####[facility] ([facility])[address] [facility] [place] [address]Ooeaiulpjxn/100 WBC (Bld)17.2 %Low 20.0-45.0UnCincinnati Children's Hospital Medical CenterComment on above:Performed By: #### [id number] ####[facility] ([facility])[address] [place], [place] [address]HLD (RBC) [Entitic mass]30.7 ibDracwb60.0-33.0UnCincinnati Children's Hospital Medical Center Comment on above:Performed By: #### [id number] ####[facility] ([facility])[address] [place] [address]DTF (RBC) [Entitic vol]93.9 oEFrawzd42.0-98.0 [facility] CenterComment on above:Performed By: #### [id number] ####[facility] ([facility])[address] [place] [address]Xnekffolf (Bld) [#/Vol]0.31 10*3/uLNormal0.10-1.00UnCincinnati Children's Hospital Medical CenterComment on above:Performed By: #### [id number] ####[facility] ([facility])[address] [place] [address]Mxdbsanih/100 WBC (Bld)7.8 %Normal5.0-12.0UnCincinnati Children's Hospital Medical CenterComment on above:Performed By: #### [id number] ####[facility] ([facility])[address] [place] [address]Qcscckoruyk (Bld) [#/Vol] 2.66 10*3/uLNormal1.60-7.60UnCincinnati Children's Hospital Medical CenterComment on above: Performed By: #### [id number] ####[facility] ([facility])[address] [place] [address]Fenpjtdbdjf/100 WBC (Bld)67.3 %Wbihjt16.0-72.0UnCincinnati Children's Hospital Medical CenterComment on above:Performed By: #### [id number] ####[facility] ([facility])[address] [place] [address]KKBM (PER 100 WBCS) BY AUTOMATED COUNT0.0 %Mgseba9QgdzxfxhbuCincinnati Children's Hospital Medical CenterComment on above: Performed By: #### [id number] ####[facility] ([facility])[address] [place] [address]MJTDLDJWE (10*3/UL) IN BLOOD AUTOMATED [id number] 10*3/uLLow 150-400UnCincinnati Children's Hospital Medical CenterComment on above:Performed By: #### [id number] ####[facility] [place] [address]PKX (Bld) [#/Vol]2.77 10*6/uLLow4.20-5.70UnCincinnati Children's Hospital Medical CenterComment on above:Performed By: #### [id number] ####[facility] ([facility])[address] [place] [address]SGP (Bld) [#/Vol]3.95 10*3/uLLow4.00-10.60UnCincinnati Children's Hospital Medical CenterComment on above:Performed By: #### [id number] ####[facility] ([facility])[address] [place] [id number] HEAD WO IV CONTRASTon [id number] HEAD WO IV CONTRASTCT HEAD WO IV CONTRAST HISTORY: Head injury, pain, fall COMPARISON: None TECHNIQUE: * CT brain without intravenous contrast. Automated exposure control was utilized. * All CT scans at this facility use dose modulation, iterative reconstruction, and/or weight based dosing when appropriate to reduce radiation dose to as low as reasonably achievable. FINDINGS: No shift of midline structures, mass effect, acute intracranial hemorrhage, or evidence of acute large vessel ischemia/infarct. The cerebral volume, ventricles, cisterns, and sulci are normal for patient age. Visualized intraorbital contents and the infratemporal soft tissues show no acute abnormality. The visualized paranasal sinuses and mastoid air cells are clear. Vascular calcifications are visualized. IMPRESSION: * No acute intracranial findings by CT. Approved by:Eliud Klnie06/15/2025 8:13 PM. I, Harsh Andrade MD,have reviewed the image(s) and agree with the findings in this report. Electronically signed: Harsh Andrade MD.NormalUnOhio State Health System CenterEDNURSon [id number] surgeon from prior fem-pop. Sent in a picture of wound starting to have puss drainage and redness. Had a fall prior to coming in as well fell onto right side and hit the right shoulder. Denies loc or hitting headNormalUniversity of [facility] EDPROVon [id number] VA Medical Center [address] [facility] [id number] EMERGENCY DEPARTMENT ENCOUNTER ED Room: 4172/4172- CHIEF COMPLAINT Chief Complaint Patient presents with Wound Infection HISTORY OF PRESENT ILLNESS HPI patient is a 70-year-old male status with past medical history of CAD, PAD, hyperlipidemia who is post right femoropopliteal bypass on June 07 who presents emergency room with complaint of redness around the wound with pus draining and low-grade fever since yesterday. Patient initially had serosanguineous drainage from the incision and was seen in the emergency room and follow-up with surgeon. Symptoms worsened yesterday. He has had decreased appetite and generalized fatigue as well as swelling to the right lower extremity and drainage from the incision. He denies any fevers, chills, worsening pain. REVIEW OF SYSTEMS Review of Systems Constitutional: Negative for appetite change, chills, diaphoresis, fatigue and fever. Respiratory: Negative for chest tightness, shortness of breath and wheezing. Cardiovascular: Positive for leg swelling (RLE). Negative for chest pain and palpitations. Musculoskeletal: Negative for arthralgias and myalgias. Skin: Positive for color change and wound. PAST MEDICAL HISTORY has a past medical history of Cancer (CMS/[facility]ER[facility]), Chronic kidney disease, Coronary artery disease, Dyspnea on exertion, Emphysema lung (CMS/HCC), Hyperlipidemia, Hypertension, MCI (mild cognitive impairment), Mitral regurgitation, PAD (peripheral artery disease), and Pulmonary hyperinflation. SURGICAL HISTORY has a past surgical history that includes Cardiac catheterization; Coronary artery bypass graft; Colonoscopy; Cataract extraction; Lung biopsy; and Lung removal, partial. CURRENT MEDICATIONS Current Discharge Medication List CONTINUE these medications which have NOT CHANGED Details acetaminophen (Tylenol Extra Strength) 500 mg tablet Take 2 tablets (1,000 mg) by mouth every 6 (six) hours if needed for moderate pain (4-7 pain score). Qty: 30 tablet, Refills: 0 Associated Diagnoses: Lower extremity pain, bilateral albuterol 90 mcg/actuation inhaler INHALE 1 PUFF BY MOUTH EVERY 4 HOURS NEEDED amLODIPine (Norvasc) 5 mg tablet Take 1 tablet by mouth two times daily. aspirin 81 mg EC tablet Take 1 tablet by mouth in the morning. buPROPion XL (Wellbutrin XL) 300 mg 24 hr tablet Use 1 tablet in the mouth or throat in the morning. atorvastatin (Lipitor) 80 mg tablet Take 80 mg by mouth at bedtime. busPIRone (Buspar) 15 mg tablet Take 1 tablet by mouth in the morning and at bedtime. clopidogrel (Plavix) 75 mg tablet Take 75 mg by mouth in the morning. famotidine (Pepcid) 20 mg tablet Take 20 mg by mouth twice a day. fenofibrate micronized (Antara) 43 mg capsule Take 1 capsule by mouth in the morning and at bedtime. tcmxbflnbbt-vfvjpbrep-adbyrxct (Trelegy Ellipta) 100-62.5-25 mcg blister with device Inhale 1 puff in the morning. metoprolol tartrate (Lopressor) 50 mg tablet Take 50 mg by mouth two times daily. nitroglycerin (Nitrostat) 0.4 mg SL tablet OLANZapine (ZyPREXA) 5 mg tablet Take 5 mg by mouth at bedtime. rivaroxaban (Xarelto) 2.5 mg tablet Take 1 tablet (2.5 mg) by mouth two times daily for 197 doses. Qty: 90 tablet, Refills: 1 Associated Diagnoses: Peripheral arterial occlusive disease; Atherosclerosis of arteries of extremities sertraline (Zoloft) 100 mg tablet Take 2 tablets by mouth in the morning. sodium zirconium cyclosilicate (Lokelma) 10 gram packet Take 10 g by mouth 3 (three) times a week. Qty: 120 g, Refills: 3 Associated Diagnoses: Kidney disease, chronic, stage IV (GFR 15-29 ml/min) ([facility]); Essential hypertension; Hyperkalemia traZODone (Desyrel) 100 mg tablet Take 1 [...] drugs. PHYSICIAL EXAM INITIAL VITALS: height is 1.676 m (5' 6 ) and weight is 76.8 kg (169 lb 5 oz). His temperature is 36.8 ???C (98.2 ???F). His blood pressure is 115/55 and his pulse is 62. His respiration is 16 and oxygen saturation is 92%. Physical Exam Vitals and nursing note reviewed. Constitutional: General: He is not in acute distress. Appearance: Normal appearance. He is normal weight. He is not ill-appearing, toxic-appearing or diaphoretic. Cardiovascular: Rate and Rhythm: Normal rate and regular rhythm. Pulmonary: Effort: Pulmonary effort is normal. Breath sounds: Normal breath sounds. Abdominal: General: Abdomen is flat. Bowel sounds are normal. Palpations: Abdomen is soft. Musculo (more content not included)...NormalBarberton Citizens Hospital [id number] Attestation signed by Italo Lyles MD at 06/20/2025 8:47 PM I discussed the patient with the resident who was admitted the night. There is apparently possible infection or possible dehiscence in the right groin. This will be evaluated in the morning. Patient admitted. Started on IV antibiotics. 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 White male with PMH of PAD, CAD, COPD, dyslipidemia and recent right fem to above knee pop bypass with graft on 06/07. He reports he initially was having some serosanguinous drainage from the incision and was seen in wound clinic for this. Today, he reports more purulent drainage as well as erythema surrounding the incision, prompting presentation to ER. He otherwise endorses decreased appetite and RLE swelling. Denies fevers, chills. Denies increased pain. He is currently on ASA, plavix and xarelto. He has been taking these. Was not receiving any antibiotics. Past Medical History Medical History[1] Past Surgical History Surgical History[2] Allergies Allergies[3] Current Medications [START ON 06/16/2025] cefepime, 1 g, intravenous, q8h cefepime, 2 g, intravenous, Once vancomycin, 1.5 g, intravenous, Once Home Medications Prescriptions Prior to Admission[4] Social History Social History Socioeconomic History Marital status: Legally Spouse name: Not on file Number of children: Not on file Years of education: Not on file Highest education level: Not on file Occupational History Not on file Tobacco Use Smoking status: Former Types: Cigarettes Smokeless tobacco: Never Vaping Use Vaping status: Never Used Substance and Sexual Activity Alcohol use: Not Currently Drug use: Never Sexual activity: Defer Other Topics Concern Not on file Social History Narrative Not on file Social Drivers of Health Financial Resource Strain: Low Risk (06/08/2025) Overall Financial Resource Strain (CARDIA) Difficulty of Paying Living Expenses: Not hard at all Food Insecurity: No Food Insecurity (06/08/2025) Hunger Vital Sign Worried About Running Out of Food in the Last Year: Never true Ran Out of Food in the Last Year: Not on file Transportation Needs: No Transportation Needs (06/08/2025) Transportation Lack of Transportation (Medical): No Lack of Transportation (Non-Medical): Not on file Physical Activity: Inactive (02/28/2025) Received from [facility] Exercise Vital Sign Days of Exercise per Week: 0 days Minutes of Exercise per Session: 0 min Stress: Stress Concern Present (02/28/2025) Received from [facility] [place] [facility] [employer] [facility] - Occupational Stress Questionnaire Feeling of Stress : To some extent Social Connections: Socially Isolated (02/28/2025) Received from [facility] Social Connection and Isolation Panel Frequency of Communication with Friends and Family: More than three times a week Frequency of Social Gatherings with Friends and Family: Once a week Attends Muslim Services: Never Active Member of Clubs or Organizations: No Attends Club or Organization Meetings: Never Marital Status: Intimate Partner Violence: Unknown (06/08/2025) Humiliation, Afraid, Rape, and Kick questionnaire Fear of Current or Ex-Partner: No Emotionally Abused: Not on file Physically Abused: Not on file Sexually Abused: Not on file Housing Stability: Low Risk (06/08/2025) Housing Stability Vital Sign Unable to Pay for Housing in the Last Year: No Number of Times Moved in the Last Year: Not on file Homeless in the Last Year: No Primary Care Physician Noa Watson MD Family Histroy Family History[5] Review Of Systems All 14 points were reviewed and were negative except for what mentioned in the history of presenting illness. Objective Vital signs: Vitals: 06/15/25 1853 06/15/25 1931 06/15/25 1940 BP: (!) 122/43 (!) 108/45 (!) 114/49 BP Location: Left arm Patient Position: Sitting Pulse: 66 63 64 Resp: 18 19 24 Temp: 37.1 ???C (98.8 ???F) TempSrc: Oral SpO2: 97% 99% 98% Weight: 79.4 kg (175 lb) Height: 1.676 m (5' 6 ) Temperature Range Last 24 Hours : Temp: 37.1 ???C (98.8 ???F) Temp Av.1 ???C (98.8 ???F) Min: 37.1 ???C (98.8 ???F) Max: 37.1 ???C (98.8 ???F) Admit Weight: 79.4 kg (175 lb) Body mass index is 28.25 kg/m???. Last Weights: Wt Readings from Last 3 Encounters: 06/15/25 79.4 kg (175 lb) 06/14/25 79.4 kg (175 lb) 06/12/25 81.2 kg (179 lb) I/O's:No intake or output data in the 24 hours ending 06/15/253 Physical Exam Physical Exam Constitutional: Appearance: Normal appearance. HENT: Head: Normocephalic and atraumatic. Eyes: Extra (more content not included)...NormalUnCincinnati Children's Hospital Medical Center LACTIC ACID WITH 4 HOUR REFLEXon [id number] (MMOL/L) IN SER/PLAS0.8 mmol/LNormal0.5-2.2UnCincinnati Children's Hospital Medical CenterComment on above:Performed By: #### [id number] #### [facility] ([facility]) [address], [place] [address]BCPKK CULTUREon [id number] [Susc]ResistantUnCincinnati Children's Hospital Medical CenterComment on above:Order Comment: Cefepime (when cefepime JOSE value is <=2 ug/ml) and meropenem (when cefepime is JOSE >=4 ug/ml and meropenem JOSE value is susceptible) are the preferred therapies for this organism due to moderate-high risk of AmpC beta-lactam production. Fluoroquinolones and trimethoprim-sulfamethoxazole may be considered as alternative intravenous or oral therapy options.Performed By: #### [id number] ####[facility] ([facility])[address] [place], [place] [address]Tgdnlrxy [Susc] <=1SusceptibleUnCincinnati Children's Hospital Medical CenterComment on above:Order Comment: Cefepime (when cefepime JOSE value is <=2 ug/ml) and meropenem (when cefepime is JOSE >=4 ug/ml and meropenem JOSE value is susceptible) are the preferred therapies for this organism due to moderate-high risk of AmpC beta-lactam production. Fluoroquinolones and trimethoprim-sulfamethoxazole may be considered as alternative intravenous or oral therapy options.Performed By: #### [id number] ####[facility] ([facility])[address], [place] [address]Wbjzrdrjmsybz [Susc]<=0.25SusceptibleUnCincinnati Children's Hospital Medical CenterComment on above:Order Comment: Cefepime (when cefepime JOSE value is <=2 ug/ml) and meropenem (when cefepime is JOSE >=4 ug/ml and meropenem JOSE value is susceptible) are the preferred therapies for this organism due to moderate-high risk of AmpC beta- lactam production. Fluoroquinolones and trimethoprim-sulfamethoxazole may be considered as alternative intravenous or oral therapy options.Performed By: #### [id number] ####[facility] ([facility])[address] [place] [address] levoFLOXacin [Susc]<=0.5SusceptibleUndelta community medical center [facility] Medical CenterComment on above:Order Comment: Cefepime (when cefepime JOSE value is <=2 ug/ml) and meropenem (when cefepime is JOSE >=4 ug/ml and meropenem JOSE value is susceptible) are the preferred therapies for this organism due to moderate-high risk of AmpC beta-lactam production. Fluoroquinolones and trimethoprim-sulfame thoxazole may be considered as alternative intravenous or oral therapy options. Performed By: #### [id number] ####[facility] ([facility])[address], [place] [address]Cwghszxoi [Susc]<=0.5SusceptibleUnCincinnati Children's Hospital Medical CenterComment on above:Order Comment: Cefepime (when cefepime JOSE value is <=2 ug/ml) and meropenem (when cefepime is JOSE >=4 ug/ml and meropenem JOSE value is susceptible) are the preferred therapies for this organism due to moderate-high risk of AmpC beta-lactam production. Fluoroquinolones and trimethoprim-sulfame thoxazole may be considered as alternative intravenous or oral therapy options. Performed By: #### [id number] ####[facility] ([facility])[address] [place], [place] [address]Jqbrjbh comment (Unsp spec) [Interp]CEFENormalUniAshtabula County Medical CenterComment on above:Order Comment: Cefepime (when cefepime JOSE value is <=2 ug/ml) and meropenem (when cefepime is JOSE >=4 ug/ml and meropenem JOSE value is susceptible) are the preferred therapies for this organism due to moderate-high risk of AmpC beta-lactam production. Fluoroquinolones and trimethoprim-sulfamethoxazole may be considered as alternative intravenous or oral therapy options.Performed By: #### [id number] ####[facility] ([facility])[address], [place] [address]Fnskymxkhzqw+Sulfamethoxazole [Susc] <=0.5/9.5SusceptibleTogus VA Medical CenterComment on above:Order Comment: Cefepime (when cefepime JOSE value is <=2 ug/ml) and meropenem (when cefepime is JOSE >=4 ug/ml and meropenem JOSE value is susceptible) are the preferred therapies for this organism due to moderate-high risk of AmpC beta- lactam production. Fluoroquinolones and trimethoprim-sulfamethoxazole may be considered as alternative intravenous or oral therapy options.Performed By: #### [id number] ####[facility] ([facility])[address] [place] [address] Follow-Upon [id number] JoseKel 1955 M Date Provider Department Center 06/14/2025 [id number]-CPAKMIRAIS ARRINGTON HVCVASENDO [place] [facility] Family History Problem Relation Age of Onset Diabetes Mother Family Status - Relation Status Age at Mother Level of Service:31488 [place] POSTOP FOLLOW UP VISIT RELATED TO ORIGINAL PX Reason for Visit and Comments: Post-op Problem [868124]NormalMetroHealth Parma Medical CenterPROVon [id number] of Present Illness Chief Complaint Patient presents with Wound Check Had a fem pop bypass on 06/07, discharged to home on the . Here now for possible wound dehiscence of the right inner thigh.Steri strips intact but there is some bleeding noted at several spots. 70-year-old male 4 days status post right femoral-popliteal bypass for peripheral arterial disease presents with family for evaluation of the wound. He noted that the wound was very bloody and there is drainage on his leg. His leg also has a little more swollen. Denies chest pain shortness of breath. He is on his medications including Xarelto. He has done well overall since the operation. History provided by: Patient and relative Ashely Coma Scale Score: 15 History Medical History[1] Surgical History[2] Family History[3] Social History[4] Review of Systems Review of Systems Constitutional: Negative for chills and fever. Skin: Positive for wound. All other systems reviewed and are negative. Physical Exam ED Triage Vitals [06/12/25 0142] Temp Heart Rate Resp BP 36.8 ???C (98.2 ???F) 63 20 (!) 119/98 SpO2 Temp Source Heart Rate Source Patient Position 99 % Oral Monitor Sitting BP Location FiO2 (%) Right arm -- Physical Exam Vitals and nursing note reviewed. Constitutional: General: He is not in acute distress. Appearance: Normal appearance. He is not ill-appearing, toxic-appearing or diaphoretic. HENT: Head: Normocephalic and atraumatic. Cardiovascular: Rate and Rhythm: Normal rate and regular rhythm. Heart sounds: Normal heart sounds. Pulmonary: Effort: Pulmonary effort is normal. Breath sounds: Normal breath sounds. Abdominal: Palpations: Abdomen is soft. Musculoskeletal: Comments: Right lower extremity with some mild swelling and bruising over the medial aspect of the thigh and lower leg region. No calf pain. Negative Homans' sign. Neurovascular appropriate. Wound described in skin section. Skin: General: Skin is warm and dry. Capillary Refill: Capillary refill takes less than 2 seconds. Comments: Right medial thigh surgical wound is intact. There is some dried blood over some of it. There is a few spots where the Steri-Strips have fallen off. Overall the wound is held together excellently. No signs of any overlying infection. Neurological: General: No focal deficit present. Mental Status: He is alert and oriented to person, place, and time. Sensory: No sensory deficit. Motor: No weakness. Procedures ED Course & MDM Diagnoses as of 06/12/25 0151 Encounter for postoperative wound check Medical Decision Making Discussed case with on-call surgery resident. I do believe patient is doing well. He had a little bit of serosanguineous drainage and dried blood. We will clean his wound and apply some fresh Steri-Strips on the spots where they have fallen off. Patient understands that the swelling is expected from the area of operation and him being on a blood thinner. Will continue his medications and postop instructions. To come back for new concerns or symptoms. Amount and/or Complexity of Data Reviewed Discussion of management or test interpretation with external provider(s): General Surgery Attestion [1] Past Medical History: Diagnosis Date Cancer (CMS/HCC) LUNG Chronic kidney disease STAGE 4 Coronary artery disease Dyspnea on exertion Emphysema lung (CMS/HCC) Hyperlipidemia Hypertension MCI (mild cognitive impairment) Mitral regurgitation PAD (peripheral artery disease) Pulmonary hyperinflation [2] Past Surgical History: Procedure Laterality Date CARDIAC CATHETERIZATION CATARACT EXTRACTION COLONOSCOPY CORONARY ARTERY BYPASS GRAFT LUNG BIOPSY LUNG REMOVAL, PARTIAL [3] Family History Problem Relation Name Age of Onset Diabetes Mother Elizabeth [4] Social History Tobacco Use Smoking status: Former Types: Cigarettes Smokeless tobacco: Never Vaping Use Vaping status: Never Used Substance Use Topics Alcohol use: Not Currently Drug use: Defer Karan Hawkins MD 06/12/25 0231NormalUniversLutheran HospitalCBCon 06-09-2025 Erythrocyte distribution width (RBC) [Ratio]14.3 %Jeaoqx85.5-15.0UnCincinnati Children's Hospital Medical CenterComment on above:Performed By: #### [id number] #### [facility] ,ERYTHROCYTE MEAN CORPUSCULAR HEMOGLOBIN CONCENTRATION (G/DL) BY UXCUVNZRR31.0 g/zTXhyxlv87.0-35.0UnCincinnati Children's Hospital Medical CenterComment on above:Performed By: #### [id number] #### [facility] ,Hematocrit (Bld) [Volume fraction]31.6 %Low39.0-50.0UnCincinnati Children's Hospital Medical CenterComment on above:Performed By: #### [id number] #### [facility] ,Hemoglobin (Bld) [Mass/Vol]10.1 g/dLLow13.0-17.0UnCincinnati Children's Hospital Medical CenterComment on above:Performed By: #### [id number] #### [facility] ,MCH (RBC) [Entitic mass]30.4 wlDgxzfq25.0-33.0UnCincinnati Children's Hospital Medical CenterComment on above:Performed By: #### [id number] #### [facility] ,MCV (RBC) [Entitic vol]95.2 pSMwfxzv70.0-98.0UnCincinnati Children's Hospital Medical CenterComment on above:Performed By: #### [id number] #### [facility] ,PLATELETS (10*3/UL) IN BLOOD AUTOMATED SCDCV040 10*3/kQZgr125-795VoytmczgfpCincinnati Children's Hospital Medical CenterComment on above:Performed By: #### [id number] #### [facility] ,RBC (Bld) [#/Vol]3.32 10*6/uLLow4.20-5.70UnCincinnati Children's Hospital Medical Center Comment on above:Performed By: #### [id number] #### [facility] ,WBC (Bld) [#/Vol]8.42 10*3/uLNormal4.00-10.60UnCincinnati Children's Hospital Medical CenterComment on above:Performed By: #### [id number] #### [facility] ,DSon 24-82-2665IHUwvidvmxc Provider: Italo Lyels MD Discharge Provider: No att. providers found Admission Date: 06/07/2025 Discharge Date: 06/09/2025 7:30 PM Primary Discharge Diagnosis Peripheral Artery Occlusive Disease Secondary Discharge Diagnosis Coronary Artery Disease- History of CABG COPD Dyslipidemia Discharge Disposition Home or Self Care () Code Status at Discharge: Kenyatta Castillo is a 70 y.o. male with PMHx of PAOD, CAD s/p CABG, COPD, dyslipidemia, and movement disorder. Patient presented for right femoral to popliteal bypass with graft. Patient underwent the procedure on 06/07/2025. Overall, he tolerated the procedure quite well, he was extubated in the OR, and transferred to the PACU in stable condition. His postoperative recovery was uneventful. He tolerated dietary advancement without abdominal pain, nausea or vomiting. Bowel function returned on POD#1 with passage of flatus. During his time in the hospital he had no difficulty ambulating, and his pain was adequately controlled. By POD#2 he was deemed stable for discharge with close follow up and baseline imaging for future interventions. Vitals: 06/09/25 1201 BP: Pulse: Resp: Temp: 37 ???C (98.6 ???F) SpO2: The patient was seen and examined on day of discharge and this discharge summary is in conjunction with any daily progress note from day of discharge. Consults: SICU For post-op care Significant Diagnostic Studies: 06/09 BLE Arterial Vascular Ultrasound Right: Nonvisualization of proximal and distal anastomosis [...] material. Patent bypass with no significant stenosis Discharge Medications: Your medication list START taking these medications Instructions Last Dose Given Next Dose Due acetaminophen 500 mg tablet Commonly known as: Tylenol Extra Strength Take 2 tablets (1,000 mg) by mouth every 6 (six) hours if needed for moderate pain (4-7 pain score). rivaroxaban 2.5 mg tablet Commonly known as: Xarelto Take 1 tablet (2.5 mg) by mouth two times daily for 197 doses. CONTINUE taking these medications Instructions Last Dose Given Next Dose Due albuterol 90 mcg/actuation inhaler amLODIPine 5 mg tablet Commonly known as: Norvasc aspirin 81 mg EC tablet atorvastatin 80 mg tablet Commonly known as: Lipitor buPROPion XL 300 mg 24 hr tablet Commonly known as: Wellbutrin XL busPIRone 15 mg tablet Commonly known as: Buspar clopidogrel 75 mg tablet Commonly known as: Plavix famotidine 20 mg tablet Commonly known as: Pepcid fenofibrate micronized 43 mg capsule Commonly known as: Antara metoprolol tartrate 50 mg tablet Commonly known as: Lopressor OLANZapine 5 mg tablet Commonly known as: ZyPREXA sertraline 100 mg tablet Commonly known as: Zoloft sodium zirconium cyclosilicate 10 gram packet Commonly known as: Lokelma Take 10 g by mouth 3 (three) times a week. traZODone 100 mg tablet Commonly known as: Desyrel Trelegy Ellipta 100-62.5-25 mcg blister with device Generic drug: hlfhycxvouh-zhzirjrat-dthobjxo ASK your doctor about these medications Instructions Last Dose Given Next Dose Due nitroglycerin 0.4 mg SL tablet Commonly known as: Nitrostat Where to Get Your Medications These medications were sent to [facility] - [place], [place] - [address] [place] [address] [place] [address], [facility] [address] acetaminophen 500 mg tablet rivaroxaban 2.5 mg tablet Activity: activity as tolerated Diet: regular diet Time spent on discharge: >[address] Noa Watson MD for the opportunity to be involved in this patient's care.[facility] PrebleURSNOTPhoenix Indian Medical Center 06-09-2025 NURSNOTEPatient Name: Kel Castillo : 1955 Primary Care Physician: Noa Watson MD Admission Date: 06/07/2025 RAPID RESPONSE TEAM ICU TRANSFER FOLLOW-UP NOTE SUBJECTIVE / OBJECTIVE: Follow-up for previous transfer out of the ICU notification for 06/08 at 1814. ASSESSMENT / INTERVENTIONS: Recent Vital Signs: Vitals: 06/09/25 0007 06/09/25 0300 06/09/25 0411 06/09/25 0800 BP: (!) 110/46 136/54 126/59 BP Location: Left arm Left arm Left arm Patient Position: Lying Lying Lying Pulse: 73 71 Resp: (!) 30 26 Temp: 36.7 ???C (98.1 ???F) 36.8 ???C (98.2 ???F) 36.6 ???C (97.9 ???F) TempSrc: Temporal Temporal Temporal SpO2: 91% 91% Weight: 81.2 kg (179 lb 0.2 oz) Height: Latest Labs: Results from last 7 days Lab Units 06/07/25 1743 PH ART 7.41 PCO2 ART mmHg 37 PO2 ART mmHg 76* HCO3 ART mmol/L 23.5 O2 SAT ART % 97.5 BASE EXC ART mmol/L -0.9 Lab Results Component Value Date WBC 8.42 06/09/2025 WBC 9.13 06/08/2025 HGB 10.1 (L) 06/09/2025 HGB 9.3 (L) 06/08/2025 HCT 31.6 (L) 06/09/2025 HCT 27.6 (L) 06/08/2025 MCV 95.2 06/09/2025 MCV 89.9 06/08/2025 PLT 129 (L) 06/09/2025 PLT 113 (L) 06/08/2025 Lab Results Component Value Date GLUCOSE 117 (H) 06/08/2025 GLUCOSE 127 (H) 06/07/2025 CALCIUM 9.2 06/08/2025 CALCIUM 9.3 06/07/2025 NA 136 06/08/2025 NA 138 06/07/2025 K 4.8 06/08/2025 K 4.1 06/07/2025 CO2 24 06/08/2025 CO2 23 06/07/2025 CL 105 06/08/2025 CL 107 06/07/2025 BUN 23 06/08/2025 BUN 23 06/07/2025 CREATININE 1.78 (H) 06/08/2025 CREATININE 1.74 (H) 06/07/2025 EGFR 40.0 (L) 06/08/2025 EGFR 41.1 (L) 06/07/2025 BCR 12.9 06/08/2025 BCR 13.2 06/07/2025 Lab Results Component Value Date MG 2.2 06/08/2025 MG 1.5 (L) 06/07/2025 Lab Results Component Value Date PHOS 4.8 06/08/2025 PHOS 4.1 06/07/2025 Lab Results Component Value Date ALT 26 10/05/2019 AST 25 10/05/2019 ALKPHOS 56 10/05/2019 BILITOT 0.5 10/05/2019 Lab Results Component Value Date INR 1.01 05/24/2025 Follow-up: Spoke with primary RN. Patient is resting comfortably in bed. Vitals and labs are stable. Plan for possible discharge today. No concerns at this time. Encouraged to reach out with any changes. Babak Garcia RN Rapid Response Team Nurse [phone] 06/09/2025 12:12 [facility]Patient Name[facility]illo : 1955 Primary Care Physician: Noa Watson MD Admission Date: 06/07/2025 RAPID RESPONSE TEAM ICU TRANSFER FOLLOW-UP NOTE SUBJECTIVE / OBJECTIVE: Follow-up for previous transfer out of the ICU notification for 06/08 at 1814. ASSESSMENT / INTERVENTIONS: Recent Vital Signs: Vitals: 06/08/25201406/08/25220206/08/25220306/09/25 0007 BP: 121/51 122/63 122/63 (!) 110/46 BP Location: Left arm Left arm Left arm Patient Position: Lying Lying Lying Pulse: 71 69 73 Resp: 23 16 (!) 30 Temp: 36.5 ???C (97.7 ???F) 36.7 ???C (98.1 ???F) TempSrc: Temporal Temporal SpO2: 93% 93% 91% Weight: Height: Latest Labs: Results from last 7 days Lab Units 06/07/25 1743 PH ART 7.41 PCO2 ART mmHg 37 PO2 ART mmHg 76* HCO3 ART mmol/L 23.5 O2 SAT ART % 97.5 BASE EXC ART mmol/L -0.9 Lab Results Component Value Date WBC 9.13 06/08/2025 WBC 8.07 06/07/2025 HGB 9.3 (L) 06/08/2025 HGB 9.7 (L) 06/07/2025 HCT 27.6 (L) 06/08/2025 HCT 29.2 (L) 06/07/2025 MCV 89.9 06/08/2025 MCV 91.5 06/07/2025 PLT 113 (L) 06/08/2025 PLT 131 (L) 06/07/2025 Lab Results Component Value Date GLUCOSE 117 (H) 06/08/2025 GLUCOSE 127 (H) 06/07/2025 CALCIUM 9.2 06/08/2025 CALCIUM 9.3 06/07/2025 NA 136 06/08/2025 NA 138 06/07/2025 K 4.8 06/08/2025 K 4.1 06/07/2025 CO2 24 06/08/2025 CO2 23 06/07/2025 CL 105 06/08/2025 CL 107 06/07/2025 BUN 23 06/08/2025 BUN 23 06/07/2025 CREATININE 1.78 (H) 06/08/2025 CREATININE 1.74 (H) 06/07/2025 EGFR 40.0 (L) 06/08/2025 EGFR 41.1 (L) 06/07/2025 BCR 12.9 06/08/2025 BCR 13.2 06/07/2025 Lab Results Component Value Date MG 2.2 06/08/2025 MG 1.5 (L) 06/07/2025 Lab Results Component Value Date PHOS 4.8 06/08/2025 PHOS 4.1 06/07/2025 Lab Results Component Value Date ALT 26 10/05/2019 AST 25 10/05/2019 ALKPHOS 56 10/05/2019 BILITOT 0.5 10/05/2019 Lab Results Component Value Date INR 1.01 05/24/2025 Follow-up: Vital signs have remained stable since transfer out of SICU. Recent lab work is largely unchanged from previous. No questions or concerns reported by the primary nurse, but encouraged to reach out to RECRUITMENT CONSULTANT if anything changes over night. Justo Cabrera RN Rapid Response Team Nurse [phone] 06/09/2025 12:47 [facility]30on [id number] patient is Moderately Stable - Low risk of patient condition declining or worsening The patient's goals for the shift include sleep The clinical goals for the shift include VSS, hemodynamically stable, safety, comfort Problem: Activity Intolerance/Impaired Mobility Goal: Mobility/activity is maintained at optimum level for patient Outcome: Progressing Problem: Musculoskeletal - Adult Goal: Return mobility to safest level of function Outcome: Progressing Goal: Maintain proper alignment of affected body part Outcome: Progressing Goal: Return ADL status to a safe level of function Outcome: Progressing Problem: Infection Goal: LTG-No signs/symptoms of infection Outcome: Progressing Goal: LTG-Pt free of complications from infection Outcome: Progressing Goal: STG-Will allow for vitals check two times daily Outcome: Progressing Problem: Metabolic/Fluid and Electrolytes - Adult Goal: Electrolytes maintained within normal limits Outcome: Progressing Goal: Hemodynamic stability and optimal renal function maintained Outcome: Progressing Goal: Glucose maintained within prescribed range Outcome: Progressing Problem: Hematologic - Adult Goal: Maintains hematologic stability Outcome: ProgressingNormalUniAshtabula County Medical Center30Problem: Musculoskeletal - Adult Goal: Return mobility to safest level of function Outcome: Progressing Problem: Metabolic/Fluid and Electrolytes - Adult Goal: Electrolytes maintained within normal limits Outcome: Progressing Goal: Hemodynamic stability and optimal renal function maintained Outcome: Progressing Goal: Glucose maintained within prescribed range Outcome: Progressing Problem: Hematologic - Adult Goal: Maintains hematologic stability Outcome: ProgressingNormalUniAshtabula County Medical Center30Problem: Activity Intolerance/Impaired Mobility Goal: Mobility/activity is maintained at optimum level for patient Outcome: Progressing Problem: Infection Goal: LTG-No signs/symptoms of infection Outcome: Progressing Goal: LTG-Pt free of complications from infection Outcome: Progressing Goal: STG-Will allow for vitals check two times daily Outcome: Progressing Problem: Musculoskeletal - Adult Goal: Return mobility to safest level of function Outcome: Progressing Goal: Maintain proper alignment of affected body part Outcome: Progressing Goal: Return ADL status to a safe level of function Outcome: Progressing Problem: Infection - Adult Goal: Absence of infection at discharge Outcome: Progressing Goal: Absence of infection during hospitalization Outcome: Progressing Goal: Absence of fever/infection during anticipated neutropenic period Outcome: Progressing Problem: Metabolic/Fluid and Electrolytes - Adult Goal: Electrolytes maintained within normal limits Outcome: Progressing Goal: Hemodynamic stability and optimal renal function maintained Outcome: Progressing Goal: Glucose maintained within prescribed range Outcome: Progressing Problem: Hematologic - Adult Goal: Maintains hematologic stability Outcome: ProgressingNormalUniversLutheran Hospital36on Tree Surgeon Helper spoke with patient's daughter and daughter verbally understood.Normal [facility] CenterBASIC METABOLIC PANELon 94-51-4913Wmkft gap [Moles/Vol]12 mmol/LNormal7-20UnCincinnati Children's Hospital Medical CenterComment on above:Performed By: #### [id number] ####[facility] ([facility])[address] [place], [place] [address]Nafwfkx [Mass/Vol]9.2 mg/dLNormal8.6-10.3UnCincinnati Children's Hospital Medical CenterComment on above:Performed By: #### [id number] ####[facility] ([facility])[address] [place], [place] [address]Cnqfoiuz [Moles/Vol]105 mmol/LNormal 98-107UnCincinnati Children's Hospital Medical CenterComment on above:Performed By: #### [id number] ####[facility] ([facility])[address] [place], [place] [address]RT7 [Moles/Vol]24 mmol/UMtsvvo50-07KjeebimduiCincinnati Children's Hospital Medical CenterComment on above:Performed By: #### [id number] ####[facility] ([facility])[address] [place], [place] [address]Mtuaaozzjm [Mass/Vol]1.78 mg/dLHigh0.70-1.30UnCincinnati Children's Hospital Medical CenterComment on above:Performed By: #### [id number] ####[facility] ([facility])[address] [place] [address]IAMMZNAROO FILTRATION RATE ML/MIN/1.73 SQ M.GGLIJGTWO05.0 mL/min/1.73m*2Low>60.0UnCincinnati Children's Hospital Medical CenterComment on above:Result Comment: [facility]???s estimated glomerular filtration rate (eGFR) [...] potential consequences that do not disproportionately affect anyone group of individuals.Performed By: #### [id number] ####[facility] ([facility])[address] [place], [place] [address]Koimmbr [Mass/Vol]117 mg/gITzfa91-096HhrxkklyhfCincinnati Children's Hospital Medical CenterComment on above:Performed By: #### [id number] ####[facility] ([facility])[address] [place] [address]Nuljzishr [Moles/Vol]4.8 mmol/LNormal3.5-5.1UnCincinnati Children's Hospital Medical CenterComment on above:Performed By: #### [id number] ####[facility] ([facility])[address] [place] [address]Dqysqr [Moles/Vol]136 mmol/L Cbpcay452-930GtvemtxifgCincinnati Children's Hospital Medical CenterComment on above:Performed By: #### [id number] ####[facility] ([facility])[address] [place], [place] [address]Ivkx nitrogen [Mass/Vol]23 mg/dLNormal7-25UnCincinnati Children's Hospital Medical CenterComment on above:Performed By: #### [id number] ####[facility] ([facility])[address] [place] [address]DJLD NITROGEN/CREATININE (MASS RATIO) IN SER/PLAS12.9Normal [facility] Medical CenterComment on above:Performed By: #### [id number] ####[facility] ([facility])[address] [place] [address]EOGgs 06-08-2025 Erythrocyte distribution width (RBC) [Ratio]14.0 %Hnbpcv55.5-15.0UnCincinnati Children's Hospital Medical CenterComment on above:Performed By: #### [id number] ####[facility] ([facility])[address] [place] [address]GAZMSXGMYOG MEAN CORPUSCULAR HEMOGLOBIN CONCENTRATION (G/DL) BY MQMJSGEAN41.7 g/nRShrzct79.0-35.0 [facility] CenterComment on above:Performed By: #### [id number] ####[facility] ([facility])[address] [place], [place] [address]Fsathrxult (Bld) [Volume fraction]27.6 %Low39.0-50.0UnCincinnati Children's Hospital Medical CenterComment on above:Performed By: #### [id number] ####[facility] ([facility])[address] [place], [place] [address]Wglplsatbx (Bld) [Mass/Vol]9.3 g/dLLow13.0-17.0UnCincinnati Children's Hospital Medical CenterComment on above:Performed By: #### [id number] ####[facility] ([facility])[address] [place], [place] [address]PHK (RBC) [Entitic mass] 30.3 dnGajimk50.0-33.0UnCincinnati Children's Hospital Medical CenterComment on above: Performed By: #### [id number] ####[facility] ([facility])[address] [place] [address]GDL (RBC) [Entitic vol]89.9 cEFqicha68.0-98.0UnCincinnati Children's Hospital Medical CenterComment on above:Performed By: #### [id number] ####[facility] ([facility])[address] [place] [address]BUFDJBJMW (10*3/UL) IN BLOOD AUTOMATED AIFQA126 10*3/xXZid618-275QttfgeispxCincinnati Children's Hospital Medical Center Comment on above:Performed By: #### [id number] ####[facility] ([facility])[address] [place] [address]EYT (Bld) [#/Vol]3.07 10*6/uLLow4.20-5.70UnCincinnati Children's Hospital Medical CenterComment on above:Performed By: #### [id number] ####[facility] ([facility])[address] [place] [address]HJT (Bld) [#/Vol]9.13 10*3/uLNormal4.00-10.60UnCincinnati Children's Hospital Medical CenterComment on above: Performed By: #### [id number] ####[facility] ([facility])[address] [place] [address]PHPIQOJGFat 54-22-4398Hsuljatfu [Mass/Vol]2.2 mg/dLNormal 1.9-2.7UnCincinnati Children's Hospital Medical CenterComment on above:Performed By: #### [id number] ####[facility] ([facility])[address] [place] [address] PHOSPHORUSon 11-77-0906Ttzxidsci [Mass/Vol]4.8 mg/dLNormal2.5-5.0UnCincinnati Children's Hospital Medical CenterComment on above:Performed By: #### [id number] #### [facility] ([facility]) [address] [place] [address]oh [phone] patient is Moderately Stable - Low risk of patient condition declining or worsening The patient's goals for the shift include: pain management, comfort The clinical goals for the shift include: hemodynamically stable, pain managementNormalUniversity St. Rita's HospitalABG COMPLETE UNSOLICITED RESULTSon 14-26-3068S-KPJ9PdsqdlYumbccoovn St. Rita's HospitalComment on above:Result Comment: C^IncalculablePerformed By: #### [id number] #### [facility] ,Base excess Calc (Bld) [Moles/Vol]-0.9000 mmol/LNormal-2.0-3.0UnCincinnati Children's Hospital Medical CenterComment on above:Performed By: #### [id number] #### [facility] ,CALCIUM IONIZED, ARTERIAL1.49 mmol/LHigh1.13-1.32UnCincinnati Children's Hospital Medical CenterComment on above:Performed By: #### [id number] #### [facility] ,CARBOXYHEMOGLOBIN, ARTERIAL2.1 %NormalUnCincinnati Children's Hospital Medical Center Comment on above:Performed By: #### [id number] #### [facility] ,Chloride [Moles/Vol]109 mmol/HRgrz83-890VelqnpdpxsTogus VA Medical Center Comment on above:Performed By: #### [id number] #### [facility] ,CO2 (Bld) [Partial pressure]37 mm[Hg]Nmhsie24-67SjvgvzverzCincinnati Children's Hospital Medical CenterComment on above:Performed By: #### [id number] #### [facility] ,DEOXYGENATED HEMOGLOBIN, ARTERIAL2.4 %NormalTogus VA Medical Center Comment on above:Performed By: #### [id number] #### [facility] ,Glucose [Mass/Vol]137 mg/jAZfgh12-46EelggmkteiTogus VA Medical CenterComment on above:Performed By: #### [id number] #### [facility] ,HCO3 (Bld) [Moles/Vol]23.5 mmol/ZJdiavr24.0-28.0UnCincinnati Children's Hospital Medical CenterComment on above:Performed By: #### [id number] #### [facility] ,Hematocrit (Bld) [Volume fraction]31 %Zll33-42HgeatznftvTogus VA Medical CenterComment on above:Performed By: #### [id number] #### [facility] ,Hemoglobin (Bld) [Mass/Vol]10.4 g/dLNormalUniAshtabula County Medical Center Comment on above:Performed By: #### [id number] #### [facility] ,LACTATE, ARTERIAL1.10 mmol/LNormal0.36-1.39[facility] Comment on above:Performed By: #### [id number] #### [facility] ,METHEMOGLOBIN, ARTERIAL0.8 %Normal0.0-1.5UnCincinnati Children's Hospital Medical Center Comment on above:Performed By: #### [id number] #### [facility] ,Oxygen (Bld) [Partial pressure]76 mm[Hg]Kcp25-707PdadmicjvlCincinnati Children's Hospital Medical CenterComment on above:Performed By: #### [id number] #### [facility] ,OXYGEN SATURATION (%) IN ARTERIAL BLOOD97.5 %Lxhijv31.0-100.0[facility] Medical CenterComment on above:Performed By: #### [id number] #### [facility] ,OXYGENATED HEMOGLOBIN IN ARTERIAL BLOOD94.6 %Gzmdzv35.0-97.0UnCincinnati Children's Hospital Medical CenterComment on above:Performed By: #### [id number] #### [facility] ,PAO2/ZAQ3NqafhfFgmlgnrqua St. Rita's HospitalComment on above:Result Comment: C^IncalculablePerformed By: #### [id number] #### [facility] ,PF RATIONormalTogus VA Medical CenterComment on above:Result Comment: C^IncalculablePerformed By: #### [id number] #### [facility] ,PH OF ARTERIAL BLOOD7.71Fzyojs7.35-7.45UnCincinnati Children's Hospital Medical Center Comment on above:Performed By: #### [id number] #### [facility] ,Potassium [Moles/Vol]4.4 mmol/LNormal3.4-5.2[facility] Comment on above:Performed By: #### [id number] #### [facility] ,Sodium [Moles/Vol]137 mmol/ZWyfasn378-370PefkwugllxCincinnati Children's Hospital Medical Center Comment on above:Performed By: #### [id number] #### [facility] ,PQTTEUOSYXL11.0 ???CNormalTogus VA Medical CenterComment on above: Performed By: #### [id number] #### [facility] ,BASIC METABOLIC PANELon 35-66-6967Ooyty gap [Moles/Vol]12 mmol/LNormal7-20 [facility] CenterComment on above:Performed By: #### [id number] ####[facility] ([facility])[address] [place], [place] [address]Efignrm [Mass/Vol]9.3 mg/dLNormal8.6-10.3UnCincinnati Children's Hospital Medical CenterComment on above:Performed By: #### [id number] ####[facility] ([facility])[address] [place], [place] [address]Xncpjbew [Moles/Vol]107 mmol/VTexetv23-757OzaresckkwCincinnati Children's Hospital Medical CenterComment on above:Performed By: #### [id number] ####[facility] ([facility])[address] [place], [place] [address]UE5 [Moles/Vol]23 mmol/LNormal 21-31UnCincinnati Children's Hospital Medical CenterComment on above:Performed By: #### [id number] ####[facility] ([facility])[address] [place], [place] [address]Wegqikdvuj [Mass/Vol]1.74 mg/dLHigh0.70-1.30UnCincinnati Children's Hospital Medical CenterComment on above:Performed By: #### [id number] ####[facility] ([facility])[address] [place], [place] [address]ZYOTDIMWMH FILTRATION RATE ML/MIN/1.73 SQ M.JGVAKMEUU97.1 mL/min/1.73m*2Low>60.0UnCincinnati Children's Hospital Medical CenterComment on above:Result Comment: The [facility]???s estimated glomerular filtration rate (eGFR) [...] potential consequences that do not disproportionately affect anyone group of individuals.Performed By: #### [id number] ####[facility] ([facility])[address] [place] [address]Wttmvie [Mass/Vol]127 mg/vSUkre55-554VxzewybnsoCincinnati Children's Hospital Medical CenterComment on above:Performed By: #### [id number] ####[facility] ([facility])[address] [place], [place] [address]Azojhtsyd [Moles/Vol]4.1 mmol/L Normal3.5-5.1UnCincinnati Children's Hospital Medical CenterComment on above:Performed By: #### [id number] ####[facility] ([facility])[address] [place] [address] Sodium [Moles/Vol]138 mmol/RQabzwg733-602OloszvxtrnCincinnati Children's Hospital Medical Center Comment on above:Performed By: #### [id number] ####[facility] ([facility])[address] [place], [place] [address]Bytu nitrogen [Mass/Vol]23 mg/dLNormal7-25 [facility] CenterComment on above:Performed By: #### [id number] ####[facility] ([facility])[address] [place], [place] [address]ZMFM NITROGEN/CREATININE (MASS RATIO) IN SER/PLAS13.2NormalUnCincinnati Children's Hospital Medical CenterComment on above:Performed By: #### [id number] ####[facility] ([facility])[address] [place], [place] [address]ZDWup 63-67-2181Ghlyxsimvdx distribution width (RBC) [Ratio]14.0 %Wwudrx58.5-15.0UnCincinnati Children's Hospital Medical CenterComment on above:Performed By: #### [id number] #### [facility] ([facility]) [address] [place], [place] [address]KHPOUIRYABG MEAN CORPUSCULAR HEMOGLOBIN CONCENTRATION (G/DL) BY DSTAKPDKF67.2 g/lYVlgtdz86.0-35.0UnCincinnati Children's Hospital Medical CenterComment on above:Performed By: #### [id number] #### [facility] ([facility]) [address] [place] [place], [place] [address]Zxjyrwazxr (Bld) [Volume fraction]29.2 %Low39.0-50.0UnCincinnati Children's Hospital Medical CenterComment on above:Performed By: #### [id number] #### [facility] ([facility]) [address] [place], [place] [address]Qrqqqddnqg (Bld) [Mass/Vol]9.7 g/dLLow13.0-17.0UnCincinnati Children's Hospital Medical CenterComment on above:Performed By: #### [id number] #### [facility] ([facility]) [address] [place], [place] [address]EELNIHJD PLATELET FRACTION %0.7 %Low0.8-6.3UnCincinnati Children's Hospital Medical CenterComment on above:Performed By: #### [id number] #### [facility] ([facility]) [address] [place], [place] [address]YCR (RBC) [Entitic mass]30.4 yrOogpcs26.0-33.0UnCincinnati Children's Hospital Medical CenterComment on above:Performed By: #### [id number] #### [facility] ([facility]) [address] [place], [place] [address]FFO (RBC) [Entitic vol]91.5 zGNjvdvy28.0-98.0UnCincinnati Children's Hospital Medical CenterComment on above:Performed By: #### [id number] #### [facility] ([facility]) [address] [place], [place] [address]OOZWIBRXI (10*3/UL) IN BLOOD AUTOMATED QURDD208 10*3/uLLow 150-400UnCincinnati Children's Hospital Medical CenterComment on above:Performed By: #### [id number] #### [facility] ([facility]) [address] [place], [place] [address]CQG (Bld) [#/Vol]3.19 10*6/uLLow4.20-5.70UnCincinnati Children's Hospital Medical CenterComment on above:Performed By: #### [id number] #### [facility] ([facility]) [address] [place], [place] [address]GID (Bld) [#/Vol]8.07 10*3/uLNormal4.00-10.60UnCincinnati Children's Hospital Medical CenterComment on above:Performed By: #### [id number] #### [facility] ([facility]) [address] [place], [place] [address]EDQAUITCG - TISSUE EXAMon [id number] AP CASE REPORTNormal [facility] CenterComment on above:Order Comment: Pre-op diagnosis: Lower extremity pain, bilateral [M79.604, M79.605] Severe claudication [I73.9] Encounter for pre-operative examination [Z01.818]Result Comment: Surgical Pathology Case: [id number] Authorizing Provider: Italo Lyles MD Collected: 06/07/2025 174 Ordering Location: [facility] Main Operating Room Received: 06/08/2025 0806 Pathologist: Pop Salinas MD Specimen: Groin, Right Common femoral artery , Profunda Artery Plaque and others Performed By: #### [id number] #### [facility] ([facility]) [address] [place], [place] [address]YDX AP CLINICAL INFORMATIONNormalUniversLutheran HospitalComment on above:Order Comment: Pre-op diagnosis: Lower extremity pain, bilateral [M79.604, M79.605] Severe claudication [I73.9] Encounter for pre-operative examination [Z01.818]Result Comment: Post-Op Diagnoses M79.604, M79.605 - Lower extremity pain, bilateral [ICD-10-CM] I73.9 - Severe claudication [ICD-10-CM] Z01.818 - Encounter for pre-operative examination [ICD-10-CM]Performed By: #### [id number] #### [facility] ([facility]) [address] [facility] [place], [place] [address]TGK AP GROSS DESCRIPTIONA. Groin.NormalUnCincinnati Children's Hospital Medical CenterComment on above:Order Comment: Pre-op diagnosis: Lower extremity pain, bilateral [M79.604, M79.605] Severe claudication [I73.9] Encounter for pre-operative examination [Z01.818]Result Comment: Received in formalin labeled Kel Castillo, Groin, Tissue, Right Common femoral artery, Profunda Artery Plaque and others, 5 wells-white, soft to partially calcified fragments of soft tissue measuring 3.7 x 2.4 x 1.3 cm in aggregate. One of the fragments is tubular, measuring 2.2 cm in length and up to 0.9 cm in diameter with 40-50% luminal narrowing. Geographic Information Scientist sections havebeen submitted in one cassette following decalcification. The remainder of the specimen is contained within its formalin container. Rom Iglesias, PGY-2Performed By: #### [id number] #### [facility] ([facility]) [address] [place], [place] [address]UMQ AP MICROSCOPIC DESCRIPTIONMicroscopic examination performed. [facility]ruder HospitalComment on above:Order Comment: Pre-op diagnosis: Lower extremity pain, bilateral [M79.604, M79.605] Severe claudication [I73.9] Encounter for pre-operative examination [Z01.818]Performed By: #### [id number] #### [facility] [address], [place] [id number] AP REPORT FINAL DIAGNOSIS NARRATIVENormalUniAshtabula County Medical CenterComment on above:Order Comment: Pre-op diagnosis: Lower extremity pain, bilateral [M79.604, M79.605] Severe claudication [I73.9] Encounter for pre-operative examination [Z01.818]Result Comment: A. Right common femoral artery and profunda artery plaque, endarterectomy: - Calcified atherosclerotic plaque with osteoid metaplasia. at 0824 EDTPerformed By: #### [id number] #### [facility] ([facility] [address] [place], [place] [address]LDxs 78-96-2099OCDjlvfrz Of Present Illness Kel Castillo is a 69 y.o. male who presents today for PAD. Patient with a history of history of coronary artery disease, prior coronary artery bypass graft surgery, peripheral arterial disease, COPD, dyslipidemia, and movement disorder. He reports claudication symptoms in bilateral calves after walking short distances for a long period of time. He has had an HUBER study done at [facility] on 02/23/25 where right PT was, 0.55. right DP 0.53, right TBI 0.32, left PT 0.6, left DP 0.63, left TBI 0.51. He had a aortogram done by Dr. 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 Patient is taking aspirin, atorvastatin and plavix daily. Patient presents today for right-femoral to popliteal bypass with graft. We anticipate patient will be admitted after the procedure to the SICU for close monitoring. Of note today patient states he can only make it 10 steps before he has to stop due to pain, endorses pain in the bilateral lower extremities, that is worse on the right. Denies any recent illnesses, denies CP,SOB, fever, chills, nausea of vomiting. Past Medical History Medical History[1] Surgical History Surgical History[2] Social History Social History Socioeconomic History Marital status: Legally Spouse name: None Number of children: None Years of education: None Highest education level: None Occupational History None Tobacco Use Smoking status: Former Types: Cigarettes Smokeless tobacco: Never Vaping Use Vaping status: Never Used Substance and Sexual Activity Alcohol use: Not Currently Drug use: Defer Sexual activity: Defer Other Topics Concern None Social History Narrative None Social Drivers of Health Financial Resource Strain: Low Risk (02/28/2025) Received from [facility] [employer] Overall Financial Resource Strain (CARDIA) Difficulty of Paying Living Expenses: Not very hard Food Insecurity: No Food Insecurity (03/10/2025) [email or web address] Hunger Screening Within the past 12 months we worried whether our food would run out before we got money to buy more.: Never True Within the past 12 months the food we bought just didn't last and we didn't have money to get more.: Never True Transportation Needs: No Transportation Needs (02/28/2025) Received from [facility] - Transportation Lack of Transportation (Medical): No Lack of Transportation (Non-Medical): No Physical Activity: Inactive (02/28/2025) Received from [facility] Exercise Vital Sign Days of Exercise per Week: 0 days Minutes of Exercise per Session: 0 min Stress: Stress Concern Present (02/28/2025) Received from [facility] [place] [facility] - Occupational Stress Questionnaire Feeling of Stress : To some extent Social Connections: Socially Isolated (02/28/2025) Received from [facility] Social Connection and Isolation Panel [NHANES] Frequency of Communication with Friends and Family: More than three times a week Frequency of Social Gatherings with Friends and Family: Once a week Attends Muslim Services: Never Active Member of Clubs or Organizations: No Attends Club or Organization Meetings: Never Marital Status: Intimate Partner Violence: Not At Risk (02/28/2025) Received from [facility] Humiliation, Afraid, Rape, and Kick questionnaire Fear of Current or Ex-Partner: No Emotionally Abused: No Physically Abused: No Sexually Abused: No Housing Stability: Low Risk (02/28/2025) Received from [facility] Housing Stability Vital Sign Unable to Pay for Housing in the Last Year: No Number of Times Moved in the Last Year: 0 Homeless in the Last Year: No Family History Family History[3] Allergies Allergies[4] Medications Prescriptions Prior to Admission[5] Last Recorded Vitals Visit Vitals BP 142/62 Pulse 59 Temp 35.8 ???C (96.4 ???F) (temporal artery) Resp 16 Ht 1.651 m (5' 5 ) Wt 75.1 kg (165 lb 9.1 oz) SpO2 98% BMI 27.55 kg/m??? Smoking Status Former BSA 1.86 m??? Physical Exam Constitutional: Appearance: Normal appearance. Cardiovascular: Rate and Rhythm: Normal rate. Pulmonary: Effort: Pulmonary effort is normal. No respiratory distress. Musculoskeletal: Right lower leg: No edema. Left lower leg: No edema. Skin: General: Skin is warm and dry. Neurological: General: No focal deficit present. Mental Status: He is alert and oriented to person, place, and time. Relevant Lab Results Lab Results Component Value Date NA 140 05/31/2025 K 5.1 05/31/2025 CL 108 (H) 05/31/2025 CO2 25 05/31/2025 BUN 36 (H) 05/31/2025 CREATININE 1.97 (H) 05/31/2025 GLUCOSE 99 05/31/2025 CALCIUM 8.9 05/31/2025 ANIONGAP 12 05/31/2025 EGFR 35.4 (L) 05/31/2025 BCR 18.3 (more content not included)...NormalUnCincinnati Children's Hospital Medical Center MAGNESIUMon 62-69-5963Fydyqxovn [Mass/Vol]1.5 mg/dLLow1.9-2.7UnCincinnati Children's Hospital Medical CenterComment on above:Performed By: #### [id number] ####[facility] ([facility])[address], [place] [address]UUHPIQUEct 06-07-2025 NURSNOTEPrior to surgery bilateral posterior tibial and dorsalis pedis pulses assessed with positive pulses detected via doppler @1520 Post surgery bilateral posterior tibial and dorsalis pedis pulses assessed with positive pulses detected via doppler @1815NormalUniversLutheran HospitalOPNOTEon 35-06-6757EENUTKBujge Femoral- Popliteal Bypass with 8mm Propaten Graft above the knee (R), ENDARTERECTOMY, COMMON FEMORAL ARTERY, PROFUNDA , AND (R) Operative Note Date: 06/07/2025 Location: [facility] OR Name: Kel Castillo, : 1955, Diagnosis Pre-op Diagnosis * Lower extremity pain, bilateral [M79.604, M79.605] * Severe claudication [I73.9] * Encounter for pre-operative examination [Z01.818] Post-op Diagnosis * Lower extremity pain, bilateral [M79.604, M79.605] * Severe claudication [I73.9] * Encounter for pre-operative examination [Z01.818] Procedures Right Femoral- Popliteal Bypass with 8mm Propaten Graft above the knee [address] - TX BYPASS W/VEIN FEMORAL-POPLITEAL ENDARTERECTOMY, COMMON FEMORAL ARTERY, PROFUNDA , AND Surgeons Primary: Italo Lyles MD Procedure Summary Anesthesia: General ASA: III Estimated Blood Loss: 50 mL Total IV Fluids: see anesthesia records Drains: Urethral Catheter Non-latex 16 Fr. (Active) Site Assessment Clean;Skin intact 06/07/251801 Collection Container Leg bag 06/07/251801 Securement Method Securing device (Describe) 06/07/251801 Output (mL) 400 mL 06/07/251801 Specimens ID Source Type Tests Collected By Collected At Frozen? Priority Lab ID A Groin Tissue HISTOLOGY - TISSUE EXAM tIalo Lyles MD 06/07/25 1256 Description: Right Common femoral artery , Profunda Artery Plaque and others Implants Type Name Action Serial No. Collagen GRAFT,THIN-WALL,8X80CM,70CM - [id number] - [id number] Implanted [id number] Staff: Grain Elevator Superintendent: Carlos Rivera RN Relief Grain Elevator Superintendent: Michelle Snow RN Relief Scrub: Brina Sanchez CST Scrub Person: Mariana Peralta CST; Ana Irizarry Rail Bonder: Maria Ines Gilmore RN Orientee Grain Elevator Superintendent: Becca Maldonado RN Indications: Kel Castillo is an 70 y.o. male who is having surgery for Lower extremity pain, bilateral [M79.604, M79.605] Severe claudication [I73.9] Encounter for pre-operative examination [Z01.818]. Procedure Details: The patient was seen in the preoperative area. The risks, benefits, complications, treatment options, non-operative alternatives, expected recovery and outcomes were discussed with the patient. The possibilities of reaction to medication, pulmonary aspiration, injury to surrounding structures, bleeding, recurrent infection, the need for additional procedures, failure to diagnose a condition, and creating a complication requiring transfusion or operation were discussed with the patient. The patient concurred with the proposed plan, giving informed consent. The site of surgery was properly noted/marked if necessary per policy. The patient has been actively warmed in preoperative area. Preoperative antibiotics have been ordered and given within 1 hours of incision. Venous thrombosis prophylaxis have been ordered including unilateral sequential compression device. General endotracheal anesthesia was established by anesthesia team. Patient was prepped and draped in the usual sterile fashion. Appropriate time out performed prior to starting procedure. Incision was made over right groin a longitudinal fashion using 15 blade scalpel. Incision was deepened with electrocautery device trying to avoid lymphatic tissue, common femoral artery was identified, vessels loops were placed around BILINGUAL SALES REPRESENTATIVE, SFA and PFA, heparin was administered and BILINGUAL SALES REPRESENTATIVE was clamped higher just below inguinal ligament were the artery was soft and free of plaque. Distal BILINGUAL SALES REPRESENTATIVE was then opened up with 11 blade scalpel in longitudinal fashion and arteriotomy was extended caudally with potz scissors to the level of the bifurcation. Extensive amount of plaque was noted in this area, endarterectomy of BILINGUAL SALES REPRESENTATIVE, profunda and ostium of SFA was performed. We then proceeded to expose our distal target vessel for the bypass; a longitudinal incision was performed on the medial distal thigh, incision was deepened using electrocautery and blunt dissection and above knee popliteal artery was successfully identified and dissected circumferentially, vessel loops were applied proximally and distally and arteriotomy was performed in a longitudinal fashion. A tunnel was created for our bypass graft from thigh incision to groin, this was tunneled under the sartorius muscle, we then passed the 8mm Propaten Graft through the tunnel, proximal and distal ends of graft were spatulated and proximal and distal ends anastomosed in an endo to side fashion using 6-0 Gortex suture in a running fashion. Hemostasis was achieved. Good palpable pulses were noted distally on the PT and DP on the right foot. Both incisions were then closed in multiple layers using vicryl and then monocryl for skin. Clean dressings applied. Complications: None; patient tolerated the procedure well. Disposition: PACU - hemodynamically stable. Condition: stable Omer Nathan MDNormalUniversity St. Rita's HospitalPHOSPHORUS on 60-47-3483Raeltiwqp [Mass/Vol]4.1 mg/dLNormal2.5-5.0UnCincinnati Children's Hospital Medical CenterComment on above:Performed By: #### [id number] #### [facility] ([facility]) [address], [place] [address]DGDC ACTIVATED CLOTTING TIME UNSOLICITED RESULTSon 46-25-7124DIA ACTIVATED CLOTTING EAIZ191 tilDxzf93-014IpxxqbwqzxCincinnati Children's Hospital Medical Center Comment on above:Performed By: #### [id number] #### [facility] ([facility]) [address], [place] [address]ZYYG GLUCOSE METER UNSOLICITED RESULTSon 58-78-3837Nnmmuaj [Mass/Vol]87 mg/dLJlwipu18-171XnvxqbhtqxCincinnati Children's Hospital Medical CenterComment on above:Order Comment: Pre-op diagnosis: Lower extremity pain, bilateral [M79.604, M79.605] Severe claudication [I73.9] Encounter for pre-operative examination [Z01.818]Result Comment: [email or web address] Performed By: #### [id number] #### [facility] ([facility]) [address] [place], [place] [address]jj [id number], daughter needs to know if patient is cleared for surgery by Dr. WestUnCincinnati Children's Hospital Medical CenterBASIC METABOLIC PANELon 15-25-1073Eteop gap [Moles/Vol]12 mmol/LNormal7-20UnCincinnati Children's Hospital Medical CenterComment on above:Performed By: #### [id number] #### [facility] ,Calcium [Mass/Vol]8.9 mg/dLNormal8.6-10.3UnCincinnati Children's Hospital Medical Center Comment on above:Performed By: #### [id number] #### [facility] ,Chloride [Moles/Vol]108 mmol/MVedx33-862TfwbavwkmnCincinnati Children's Hospital Medical Center Comment on above:Performed By: #### [id number] #### [facility] ,CO2 [Moles/Vol]25 mmol/PTwjbvh97-58KsfhgqovegCincinnati Children's Hospital Medical CenterComment on above:Performed By: #### [id number] #### [facility] ,Creatinine [Mass/Vol]1.97 mg/dLHigh0.70-1.30UnCincinnati Children's Hospital Medical Center Comment on above:Performed By: #### [id number] #### [facility] ,GLOMERULAR FILTRATION RATE ML/MIN/1.73 SQ M.UDSVLBAEK67.4 mL/min/1.73m*2Low >60.0UnCincinnati Children's Hospital Medical CenterComment on above:Result Comment: The [facility]???s estimated glomerular filtration rate (eG FR) will no longer include consideration of race [...] potential consequences that do not disproportionately affect anyone group of individuals. Performed By: #### [id number] #### [facility] ,Glucose [Mass/Vol]99 mg/pJHouoou03-476EisenkdlcvTogus VA Medical Center Comment on above:Performed By: #### [id number] #### [facility] ,Potassium [Moles/Vol]5.1 mmol/LNormal3.5-5.1UnCincinnati Children's Hospital Medical Center Comment on above:Performed By: #### [id number] #### [facility] ,Sodium [Moles/Vol]140 mmol/GRadcye763-831WkmjzdwbmnCincinnati Children's Hospital Medical Center Comment on above:Performed By: #### [id number] #### [facility] ,Urea nitrogen [Mass/Vol]36 mg/dLHigh7-25[facility] Comment on above:Performed By: #### [id number] #### [facility] ,UREA NITROGEN/CREATININE (MASS RATIO) IN SER/PLAS18.3NormalUniAshtabula County Medical CenterComment on above:Performed By: #### [id number] #### [facility] ,Labon [id number] JoseKel 1955 M Date Provider Department Echo 05/31/2025 2245-[facility] LAB RESOURCE [facility] C Family History Problem Relation Age of Onset Diabetes Mother Family Status - Relation Status Age at MotherNoalUniAshtabula County Medical CenterBASIC METABOLIC PANELon 45-39-1077Gaptl gap [Moles/Vol]12 mmol/LNormal7-20UnCincinnati Children's Hospital Medical CenterComment on above:Performed By: #### [id number] ####[facility] ([facility])[address], [place] [address]Svfyxhp [Mass/Vol]9.5 mg/dLNormal 8.6-10.3UnCincinnati Children's Hospital Medical CenterComment on above:Performed By: #### [id number] ####[facility] ([facility])[address] [place] [address]Oxgeefwh [Moles/Vol]100 mmol/CFmwjxe14-348HypbipyplsCincinnati Children's Hospital Medical CenterComment on above:Performed By: #### [id number] ####[facility] ([facility])[address] [place], [place] [address]MY5 [Moles/Vol]26 mmol/QFoouvd77-85EnluzejtykCincinnati Children's Hospital Medical CenterComment on above:Performed By: #### [id number] ####[facility] ([facility])[address] [place], [place] [address]Hhopdujljm [Mass/Vol]1.92 mg/dLHigh 0.70-1.30UnCincinnati Children's Hospital Medical CenterComment on above:Performed By: #### [id number] ####[facility] ([facility])[address] [place], [place] [address]UKMXGEIUDK FILTRATION RATE ML/MIN/1.73 SQ M.BYNUFVUUA83.6 mL/min/1.73m*2Low>60.0UnCincinnati Children's Hospital Medical CenterComment on above:Result Comment: The [facility]???s estimated glomerular filtration rate (eGFR) [...] potential consequences that do not disproportionately affect anyone group of individuals. Performed By: #### [id number] ####[facility] ([facility])[address] [place], [place] [address]Kszhigq [Mass/Vol]81 mg/gFNvmcul91-106HicqzrobllCincinnati Children's Hospital Medical CenterComment on above:Performed By: #### [id number] ####[facility] ([facility])[address] [place], [place] [address]Cerkawenq [Moles/Vol]5.7 mmol/LHigh 3.5-5.1UnCincinnati Children's Hospital Medical CenterComment on above:Performed By: #### [id number] ####[facility] ([facility])[address] [place] [address]Vwsias [Moles/Vol]132 mmol/MDhd317-019KjkchupxvgCincinnati Children's Hospital Medical CenterComment on above:Performed By: #### [id number] ####[facility] ([facility])[address] [place] [address]Irdn nitrogen [Mass/Vol]26 mg/dLHigh7-25UnCincinnati Children's Hospital Medical CenterComment on above:Performed By: #### [id number] ####[facility] ([facility])[address] [place] [address]WHET NITROGEN/CREATININE (MASS RATIO) IN SER/PLAS13.5NormalUniversLutheran HospitalComment on above: Performed By: #### [id number] ####[facility] ([facility])[address] [place] [address]ELUgy 11-27-3882Tpvbntmzsuf distribution width (RBC) [Ratio]14.5 % Nurxxv93.5-15.0UnCincinnati Children's Hospital Medical CenterComment on above:Performed By: #### [id number] #### [facility] ([facility]) [address] [place] [address]QCRFZNPDKBA MEAN CORPUSCULAR HEMOGLOBIN CONCENTRATION (G/DL) BY EONKPBSLC62.1 g/yRMqdvtl35.0-35.0UnCincinnati Children's Hospital Medical CenterComment on above:Performed By: #### [id number] #### [facility] ([facility]) [address] [place] [address]Eluyfwells (Bld) [Volume fraction]36.6 %Low39.0-50.0UnCincinnati Children's Hospital Medical CenterComment on above:Performed By: #### [id number] #### [facility] ([facility]) [address] [place] [address]Gycyiknzsa (Bld) [Mass/Vol]12.1 g/dLLow13.0-17.0UnCincinnati Children's Hospital Medical CenterComment on above:Performed By: #### [id number] #### [facility] ([facility]) [address] [place] [address]EAFJPSVX PLATELET FRACTION %0.9 %Normal0.8-6.3UnCincinnati Children's Hospital Medical CenterComment on above:Performed By: #### [id number] #### [facility] ([facility]) [address] [place] [address]QAB (RBC) [Entitic mass]30.6 wzJhuymh76.0-33.0UnCincinnati Children's Hospital Medical CenterComment on above:Performed By: #### [id number] #### [facility] ([facility]) [address] [place] [address]XNW (RBC) [Entitic vol]92.4 xUBafcun97.0-98.0UnCincinnati Children's Hospital Medical CenterComment on above:Performed By: #### [id number] #### [facility] ([facility]) [address] [place], [place] [address]WMRJYQCTV (10*3/UL) IN BLOOD AUTOMATED DDMNE846 10*3/uLLow 150-400UnCincinnati Children's Hospital Medical CenterComment on above:Performed By: #### [id number] #### [facility] ([facility]) [address] [place] [address]HUD (Bld) [#/Vol]3.96 10*6/uLLow4.20-5.70UnCincinnati Children's Hospital Medical CenterComment on above:Performed By: #### [id number] #### [facility] ([facility]) [address] [place] [address]TPP (Bld) [#/Vol]7.48 10*3/uLNormal4.00-10.60UnCincinnati Children's Hospital Medical CenterComment on above:Performed By: #### [id number] #### [facility] ([facility]) [address] [place] [address]Ujqsi [id number] Kel Castillo 1955 M Date Provider Department Center 05/26/2025 2245-[facility]PD LAB RESOURCE [facility] Family History Problem Relation Age of Onset Diabetes Mother Family Status - Relation Status Age at MotherNormalUniversLutheran HospitalMAGNESIUMon 24-34-6771Nqczfbcnm [Mass/Vol]1.8 mg/dLLow1.9-2.7UnCincinnati Children's Hospital Medical CenterComment on above:Performed By: #### [id number] ####[facility] ([facility])[address] [place], [place] [address]ENLLQXSTKTRU, URINE, RANDOMon 79-92-9675Ttzgoam DL <= 20 mg/L (U) [Mass/Vol]mg/dLNormalUniAshtabula County Medical CenterComment on above: Performed By: #### [id number] #### [facility] ([facility]) [address] [place], [place] [address]Ebfmgmjipv (U) [Mass/Vol]24.0 mg/zDHzr81-902XvkgujfqnpCincinnati Children's Hospital Medical CenterComment on above:Performed By: #### [id number] #### [facility] ([facility]) [address] [place], [place] [address]UAVEUTLEJVLG/CREATININE (MG/G) IN URINENormalUniAshtabula County Medical CenterComment on above:Result Comment: Unable to calculate Performed By: #### [id number] #### [facility] ([facility]) [address] [facility] [place], [place] [address]Smjqrl Visiton 39-99-0321Wqvpxf-up [id number] Kel Castillo 1955 M Date Provider Department Center 05/26/2025 207-[facility]BBIE [facility]IRANDA [facility] NEPH [facility] Family History Problem Relation Age of Onset Diabetes Mother Family Status - Relation Status Age at Mother Level of Service:72110 TX OFFICE/OUTPATIENT NEW HIGH MDM 60 MINUTES Reason for Visit and Comments: Chronic Kidney Disease [176] - New patientNormalUniversity St. Rita's HospitalPHOSPHORUSon 76-02-6929Mbfdccrvr [Mass/Vol]3.8 mg/dLNormal2.5-5.0 [facility] CenterComment on above:Performed By: #### [id number] ####[facility] ([facility])[address] [place], [place] [address]SMV, INTACTon 83-03-9369IPZOMCOKYE INTACT (PG/ML) IN SER/PLAS39 pg/eNKiejqf45-40JiugcywwklCincinnati Children's Hospital Medical CenterComment on above:Performed By: #### [id number] #### [facility] ,URINALYSIS WITH MICROSCOPICon 78-43-2014SOXQEQHFK, TOTAL PRESENCE IN URINE NegativeNormalNegativeUnCincinnati Children's Hospital Medical CenterComment on above: Performed By: #### [id number] ####[facility] ([facility])[address] [place], [place] [address]Dspfbmd (U)ClearNormalClearUnCincinnati Children's Hospital Medical CenterComment on above:Performed By: #### [id number] ####[facility] ([facility])[address] [place], [place] [address]Mneam (U)Light-YellowNormalColorless, Yellow, Light-YellowUnCincinnati Children's Hospital Medical CenterComment on above: Performed By: #### [id number] ####[facility] ([facility])[address] [place], [place] [address]VRARSWV (MG/DL) IN URINENormalNormalNormalUniversLutheran HospitalComment on above:Performed By: #### [id number] ####[facility] ([facility])[address] [place], [place] [address]DJONYHHIZH PRESENCE IN URINENegativeNormalNegativeUnCincinnati Children's Hospital Medical CenterComment on above: Performed By: #### [id number] ####[facility] ([facility])[address] [place], [place] [address]Hezvnwr Ql (U)NegativeNormalNegativeUnCincinnati Children's Hospital Medical CenterComment on above:Performed By: #### [id number] ####[facility] ([facility])[address] [place], [place] [address]JXJSBBMSH ESTERASE PRESENCE IN URINE BY TEST STRIPNegativeNormalNegativeUnCincinnati Children's Hospital Medical CenterComment on above:Performed By: #### [id number] ####[facility] ([facility])[address] [place], [place] [address]ADNWQVA PRESENCE IN URINENegativeNormalNegativeUnCincinnati Children's Hospital Medical CenterComment on above:Performed By: #### [id number] ####[facility] ([facility])[address] [place], [place] [address]zM (U)5.5 [pH]Normal 5.0-8.0UnCincinnati Children's Hospital Medical CenterComment on above:Performed By: #### [id number] ####[facility] ([facility])[address] [place], [place] [address]Kdcvpzn (U) [Mass/Vol]NegativeNormalNegativeUnCincinnati Children's Hospital Medical CenterComment on above:Performed By: #### [id number] ####[facility] ([facility])[address] [place], [place] [address]QDJ (#/HPF) IN URINE SEDIMENTNone SeenNormalNone Seen, 0-2 [facility] CenterComment on above:Performed By: #### [id number] ####[facility] ([facility])[address] [place], [place] [address]Jrrxqqpa gravity (U) [Rel density]1.273Gzl7.010-1.030UnCincinnati Children's Hospital Medical CenterComment on above:Performed By: #### [id number] ####[facility] ([facility])[address] [place], [place] [address]METHBRBT EPITHELIAL CELLS (#/LPF) IN URINE SEDIMENTOccasional NormalNone Seen, Occasional, FewUnCincinnati Children's Hospital Medical CenterComment on above:Performed By: #### [id number] ####[facility] ([facility])[address], [place] [address]SRYOCMSSVMGW (MG/DL) IN URINENormalNormalNormalUniversLutheran HospitalComment on above:Performed By: #### [id number] ####[facility] ([facility])[address] [place], [place] [address]UUB (LEUKOCYTE) (#/HPF) IN URINE SEDIMENTNone SeenNormalNone Seen, 0-2UnCincinnati Children's Hospital Medical CenterComment on above:Performed By: #### [id number] ####[facility] ([facility])[address] [place], [place] [address]SZDVMSZ D 25 HYDROXYon 05-26-2025 CALCIDIOL (25 [place] VITAMIN D3) (NG/ML) IN SER/PLAS39.0 ng/rDOjkcnx79.0-80.0 [facility] CenterComment on above:Result Comment: >80.0 Toxicity possiblePerformed By: #### [id number] #### [facility] ([facility]) [address] [facility] [place], [place] [address]qm [id number] daughter Nini called, notified of patient abnormal labs including K 5.5, BUN 30 and creatinine 2.24. Patient has appointment with [facility] nephrology tomorrow (05/26). Instructed to increase hydration and reduce potassium dietary. Also, advised if patient develops chest pain, palpitations, SOB, decreased urine output, or altered mental status; he is to seek medical attention immediately. Nini verbalized understanding of plan. Patient will need to replete labs prior to procedure.NormalUnCincinnati Children's Hospital Medical CenterTelephoneon [id number] Kel Castillo 1955 M Date Provider Department Center 05/25/2025 [address]-QMSUVSPENCER [facility] [place] Medical C Family History Problem Relation Age of Onset Diabetes Mother Family Status - Relation Status Age at MotherNormalUniMain Campus Medical [facility] 24-79-1050DRDECGNUM PARTIAL THROMBOPLASTIN TIME IN PPP BY COAGULATION ASSAY27.5 SecondsNormal 25.0-35.0UnCincinnati Children's Hospital Medical CenterComment on above:Result Comment: Clinical significance of the APTT is questionable in the presence of heparin. Performed By: #### [id number] ####[facility] ([facility])[address] [place], [place] [address]ZIMVB METABOLIC PANELon 24-63-6702Ckhkk gap [Moles/Vol]12 mmol/LNormal7-20UnCincinnati Children's Hospital Medical CenterComment on above:Performed By: #### [id number] ####[facility] ([facility])[address] [place] [address] Calcium [Mass/Vol]8.8 mg/dLNormal8.6-10.3UnCincinnati Children's Hospital Medical Center Comment on above:Performed By: #### [id number] ####[facility] ([facility])[address] [place], [place] [address]Qeoivsma [Moles/Vol]105 mmol/SSsdnrh39-652 [facility] CenterComment on above:Performed By: #### [id number] ####[facility] ([facility])[address] [place], [place] [address]VL2 [Moles/Vol] 25 mmol/TMadoyk46-99YxrmmoqehlCincinnati Children's Hospital Medical CenterComment on above: Performed By: #### [id number] ####[facility] ([facility])[address] [place], [place] [address]Tlfelksamk [Mass/Vol]2.24 mg/dLHigh0.70-1.30UnCincinnati Children's Hospital Medical CenterComment on above:Performed By: #### [id number] ####[facility] ([facility])[address] [place], [place] [address]SPNSTTGNPV FILTRATION RATE ML/MIN/1.73 SQ M.CMHHJFALA87.4 mL/min/1.73m*2Low>60.0UnCincinnati Children's Hospital Medical Center Comment on above:Result Comment: The [facility]???s estimated glomerular filtration rate (eGFR) will no longer include consideration of race in its calculation. The National Kidney Foundation???s eGFR Task Force developed new recommendations for the estimation of the glomerular filtration ra te in the [place] They recommend immediate implementation of the new equation refit without the race variable in all laboratories because the calculation does not include race. In addition to not including race in the calculation and reporting, it included diversity in its development, and has acceptable performance characteristics and potential consequences that do not disproportionately affect anyone group of individuals.Performed By: #### [id number] ####[facility] ([facility])[address] [place] [address]Pxcuqsa [Mass/Vol]81 mg/dHHophyq05-398AqtxxhmywnCincinnati Children's Hospital Medical CenterComment on above:Performed By: #### [id number] ####[facility] ([facility])[address] [place] [address]Soawkmtun [Moles/Vol]5.5 mmol/LHigh3.5-5.1UnCincinnati Children's Hospital Medical CenterComment on above:Performed By: #### [id number] ####[facility] ([facility])[address] [place] [address]Exvxbk [Moles/Vol]136 mmol/L Zddcjl194-675AmxihdrfymCincinnati Children's Hospital Medical CenterComment on above:Performed By: #### [id number] ####[facility] ([facility])[address] [place], [place] [address]Aidt nitrogen [Mass/Vol]30 mg/dLHigh7-25UnCincinnati Children's Hospital Medical CenterComment on above:Performed By: #### [id number] ####[facility] ([facility])[address] [place] [address]PLIP NITROGEN/CREATININE (MASS RATIO) IN SER/PLAS13.4Normal [facility] Medical CenterComment on above:Performed By: #### [id number] ####[facility] ([facility])[address] [place] [address]DWBwm 05-24-2025 Erythrocyte distribution width (RBC) [Ratio]14.5 %Gnrzff17.5-15.0UnCincinnati Children's Hospital Medical CenterComment on above:Performed By: #### [id number] ####[facility] ([facility])[address] [place] [address]OMAQKDLNUYV MEAN CORPUSCULAR HEMOGLOBIN CONCENTRATION (G/DL) BY OUVTDXIUS11.5 g/dLLow32.0-35.0 [facility] CenterComment on above:Performed By: #### [id number] ####[facility] ([facility])[address] [place] [address]Cedtsrkent (Bld) [Volume fraction]36.8 %Low39.0-50.0UnCincinnati Children's Hospital Medical CenterComment on above:Performed By: #### [id number] ####[facility] ([facility])[address] [place] [address]Wfweggxfhe (Bld) [Mass/Vol]11.6 g/dLLow13.0-17.0UnCincinnati Children's Hospital Medical CenterComment on above:Performed By: #### [id number] ####[facility] ([facility])[address] [place] [address]DLU (RBC) [Entitic mass] 30.3 vsLzvtbo64.0-33.0UnCincinnati Children's Hospital Medical CenterComment on above: Performed By: #### [id number] ####[facility] ([facility])[address] [place] [address]PVF (RBC) [Entitic vol]96.1 rNSlnayb66.0-98.0UnCincinnati Children's Hospital Medical CenterComment on above:Performed By: #### [id number] ####[facility] ([facility])[address] [place] [address]MVMMLRZVV (10*3/UL) IN BLOOD AUTOMATED DYAKG374 10*3/zIPnw667-123KryefjafypCincinnati Children's Hospital Medical Center Comment on above:Performed By: #### [id number] ####[facility] ([facility])[address] [place] [address]LHJ (Bld) [#/Vol]3.83 10*6/uLLow4.20-5.70UnCincinnati Children's Hospital Medical CenterComment on above:Performed By: #### [id number] ####[facility] ([facility])[address] [place] [address]GWE (Bld) [#/Vol]5.58 10*3/uLNormal4.00-10.60UnCincinnati Children's Hospital Medical CenterComment on above: Performed By: #### [id number] ####[facility] AD[facility])[address] [place], [place] [address]GGvj 69-97-8068ITQho-Anesthesia Clinic Service Date: 05/24/25 Chief Complaint: PAC visit prior to upcoming procedure: right fem to above knee popliteal bypass with graft as well as left lower extremity angiogram with possible intervention for SFA disease under general anesthesia. OLVE Castillo is a pleasant 70 y.o. male who presents to Pre-Anesthesia Clinic today prior to upcoming right fem to above knee popliteal bypass with graft as well as left lower extremity angiogram with possible intervention for SFA disease with Dr. Lyles under general anesthesia on 06/07/25. Patient has a past medical history of CAD s/p 3V CABG in 2009, CKD stage 4, PAD, HTN, HLD, and COPD. Patient is accompanied today with daughter. Overall, patient reports feeling generally well today aside from ongoing BLE pain, rates pain 9/10 in severity. He admits to balance issues and becomes dizzy at times. He currently denies SOB, fever, chest pain, chest pressure, palpitations, dizziness or syncope. He underwent an aortogram performed by Dr. 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 Initial plans for an noninvasive abdominal aortography and bilateral lower extremity angiogram was made due to progressive lower extremity pain/symptoms. However, the procedure was subsequently canceled due to patients elevated serum creatinine level of 2.18. Patient's daughter states, patient follows with Director Software Dr. Toscano at [facility]; however does have appointment with [facility] nephrology on 05/1525 for a second opinion. Patient denies history of anesthesia complications including malignant hyperthermia, serotonin syndrome, pseudocholinesterase deficiency, PONV, or difficult intubation. No family history of anesthesia complications. His left eye is blood shot, no pain. No complaints of blurry vision or diplopia. BP is well controlled today. ECHO on 04/27/2025 revealed mildly reduced left ventricular systolic function, EF 40-45%. Normal right ventricular size and systolic function. Biatrial dilation. EKG on 05/11/2025: SB, intra ventricular conduction delay, nonspecific ST and T wave abnormality. Cardiac cath on 05/11/2025 revealed severe three-vessel [place] CAD. There are 2 out of 3 bypass grafts patent, the saphenous vein graft to the posterior descending branch is known to be occluded; Mildly reduced global left ventricular systolic function by noninvasive imaging Cardiac clearance received on 05/11/2025 : moderate risk to proceed with vascular bypass surgery as scheduled; recommend strict heart rate and blood pressure control and avoidance of major fluid shifts perioperatively . Preoperative labs remains outstanding, pt is to complete today after visit. Subjective Allergies[1] Medication Documentation Review Audit Reviewed by Benedict Gonzalez RN (Registered Nurse) on 05/24/25 at 1348 Medication Order Taking? Sig Documenting Provider Last Dose Status albuterol 90 mcg/actuation inhaler [id number] Yes INHALE 1 PUFF BY MOUTH EVERY 4 HOURS NEEDED Ele ProviderMD 05/24/2025 Active amLODIPine (Norvasc) 5 mg tablet [id number] Yes Take 1 tablet by mouth two times daily. Historical ProviderMD 05/24/2025 Active aspirin 81 mg EC tablet [id number] Yes Take 1 tablet by mouth in the morning. Historical ProviderMD 05/24/2025 Active atorvastatin (Lipitor) 80 mg tablet [id number] Yes Take 80 mg by mouth at bedtime. Ele ProviderMD 05/24/2025 Active buPROPion XL (Wellbutrin XL) 300 mg 24 hr tablet [id number] Yes Use 1 tablet in the mouth or throat in the morning. Ele ProviderMD 05/24/2025 Active busPIRone (Buspar) 15 mg tablet [id number] Yes Take 1 tablet by mouth in the morning and at bedtime. Ele ProviderMD 05/24/2025 Active clopidogrel (Plavix) 75 mg tablet [id number] Yes Take 75 mg by mouth in the morning. Ele ProviderMD 05/24/2025 Active famotidine (Pepcid) 20 mg tablet [id number] Yes Take 20 mg by mouth twice a day. Ele ProviderMD 05/24/2025 Active fenofibrate micronized (Antara) 43 mg capsule [id number] Yes Take 1 capsule by mouth in the morning and at bedtime. Historical ProviderMD 05/24/2025 Active ferrous sulfate 325 (65 Fe) MG tablet [id number] No Take 325 mg by mouth in the morning. Patient not taking: Reported on 05/24/2025 Historical Provider, Not Taking Active kfbsepbwsyg-gshtadzax-mnizdlnx (Trelegy Ellipta) 100-62.5-25 mcg blister with device [id number] Yes Inhale 1 puff in the morning. Historical Provider, 05/24/2025 Active lisinopril 10 mg tablet [id number] Yes Take 10 mg by mouth in the morning. Historical Provider, 05/24/2025 Active metoprolol tartrate (Lopressor) 50 mg tablet [id number] Yes Take 50 mg by mouth two times daily. Historical Provider, 05/24/2025 Active nitroglycerin (Nitrostat) 0.4 mg SL tablet [id number] Yes Historica (more content not included)...NormalUnCincinnati Children's Hospital Medical CenterLabon 82-30-3237Tic [id number] Kel Castillo 1955 M Date Provider Department Center 05/24/2025 2244-[facility] MP LAB RESOURCE MP DRAW Medical Pavi Family History Problem Relation Age of Onset Diabetes Mother Family Status - Relation Status Age at MotherNormalUniversLutheran HospitalMRSA/MSSA DNA NASALon 05-24-2025 MRSA DNANegativeNormalNegativeUnCincinnati Children's Hospital Medical CenterComment on above:Order Comment: Testing methodology is an automated qualitative in vitro diagnostic test for the directdetection and differentiation of Staphylococcus aureus (SA) DNA and methicillin-resistant Staphylococcus aureus (MRSA) DNA from nasal swabs in patients at risk for nasal colonization. The test utilizes real- time polymerase chain reaction (PCR) for the amplification of MRSA/SA DNA and fluorogenic target-specific hybridization probes for the detection of the amplified DNA. A negative result does not preclude nasal colonization.Performed By: #### [id number] ####[facility] ([place])[address], [place] [address]ZNUP DNANegativeNormalNegativeUnCincinnati Children's Hospital Medical CenterComment on above:Order Comment: Testing methodology is an automated qualitative in vitro diagnostic test for the directdetection and differentiation of Staphylococcus aureus (SA) DNA and methicillin-resistant Staphylococcus aureus (MRSA) DNA from nasal swabs in patients at risk for nasal colonization. The test utilizes real- time polymerase chain reaction (PCR) for the amplification of MRSA/SA DNA and fluorogenic target-specific hybridization probes for the detection of the amplified DNA. A negative result does not preclude nasal colonization.Performed By: #### [id number] ####[facility] ([place])[address], [place] [address]VIGDLBW-SGFio 13-48-1166BSZ IN PPP BY COAGULATION ASSAY1.89Xwrbhc9.90-1.10 [facility] Medical CenterComment on above:Result Comment: [facility] RECOMMENDED INR FOR WARFARIN THERAPY CONDITION INR PROPHYLAXIS OF VENOUS THROMBOSIS 2-3 (HIGH-RISK SURGERY) TREATMENT OF VENOUS THROMBOSIS 2-3 TREATMENT OF PULMONARY EMBOLISM 2-3 PREVENTION OF SYSTEMIC EMBOLISM: 2-3 ACUTE MYOCARDIAL INFARCTION TISSUE HEART VALVES VALVULAR HEART DISEASE ATRIAL FIBRILLATION RECURRENT SYSTEMIC EMBOLISM MECHANICAL HEART VALVE 2.5-3.5 FROM: ORAL ANTICOAGULANTS. MECHANISM OF ACTION, CLINICAL EFFECTIVENESS, AND OPTIMAL THERAPEUTIC RANGE. CHEST 1995;108:231S-246S.Performed By: #### [id number] #### [facility] ([place]) [address] [place], [place] [address]CRCPCXKKWZG TIME (PT) IN PPP BY COAGULATION ASSAY13.3 Seconds Hffusa98.3-14.8UnCincinnati Children's Hospital Medical CenterComment on above:Performed By: #### [id number] #### [facility] ([place]) [address] [place], [place] [address]Qkw-Adczjwthn Testingon 46-00-5574Gso-Admission [id number] Kel Castillo 1955 Date Provider Department Echo 05/24/202511942-PCV-BBBNUWXURY CLINI*[facility] PAC [place] Medical C Family History Problem Relation Age of Onset Diabetes Mother Family Status - Relation Status Age at MotherNormalUniversity of Parkview Regional HospitalTYPE AND SCREENon 48-04-5591PP SCREENNegativeNormalUniversLutheran HospitalComment on above: Performed By: #### [id number] #### [facility] ,ABO group Nom (Bld)BNormalTogus VA Medical CenterComment on above: Performed By: #### [id number] #### [facility] ,RH TYPE IN BLOODPositiveNormalUniversLutheran HospitalComment on above:Performed By: #### [id number] #### [facility] ,Telephoneon [id number] Kel Castillo 1955 M Date Provider Department Center 05/17/[address] [facility] NEPH [facility] Family History Problem Relation Age of Onset Diabetes Mother Family Status - Relation Status Age at MotherNormalUniversity of Parkview Regional HospitalAbstracton [id number] [id number] Kel Castillo 1955 M Date Provider Department Center 05/14/2025 ITALO [facility] AUTH [facility] C Family History Problem Relation Age of Onset Diabetes Mother Family Status - Relation Status Age at MotherNormalUniversity of Parkview Regional HospitalANESon 97-47-8256HZBI Attestation signed by Sarah Tolliver MD at 05/11/2025 8:18 AM Sarah Tolliver MD, MPH, FACC, [facility], FS Interventional Cardiology Pager Email: [email or web address] Patient: Kel Castillo Procedure Information Date/Time: 05/11/25 1030 Procedure: Coronary angiography (Left) - call daughter glenda [phone] with instructions Location: [facility] DIVIDEND DEPOSIT VOUCHER CLERK 3 / [facility] (Cath) Providers: Sarah Tolliver MD Clinical information reviewed: Allergies Meds Physical Exam Airway Mallampati: III TM distance: >3 FB Neck ROM: full Cardiovascular Rhythm: regular Dental Pulmonary Neurological Abdominal Anesthesia Plan ASA 3 other (Conscious sedation) intravenous induction Anesthetic plan and risks discussed with patient. Use of blood products discussed with patient who consented to blood products. Plan discussed with attending and fellow. Additional Equipment RequestsNormalUniversity of Parkview Regional HospitalHPon [id number] Attestation signed by Sarah Tolliver MD at 05/11/2025 8:18 AM By using the attestations below, the [...] additional personal documentation from me. Additional Comments: Sarah Tolliver MD, MPH, [facility], [facility], [facility] Interventional Cardiology Pager Email: [email or web address] History Of Present Illness Kel Castillo is a 70 y.o. male presenting with new drop in ejection fraction, he presents today for coronary angiography. Past Medical History Medical History[1] Surgical History Surgical History[2] Social History Social History Socioeconomic History Marital status: Legally Spouse name: Not on file Number of children: Not on file Years of education: Not on file Highest education level: Not on file Occupational History Not on file Tobacco Use Smoking status: Former Types: Cigarettes Smokeless tobacco: Never Substance and Sexual Activity Alcohol use: Not Currently Drug use: Not on file Sexual activity: Not on file Other Topics Concern Not on file Social History Narrative Not on file Social Drivers of Health Financial Resource Strain: Low Risk (02/28/2025) Received from [facility] Overall Financial Resource Strain (CARDIA) Difficulty of Paying Living Expenses: Not very hard Food Insecurity: No Food Insecurity (03/10/2025) [facility] Hunger Scre[facility] Within the past 12 months we worried whether our food would run out before we got money to buy more.: Never True Within the past 12 months the food we bought just didn't last and we didn't have money to get more.: Never True Transportation Needs: No Transportation Needs (02/28/2025) Received from [facility] PRAPARE - Transportation Lack of Transportation (Medical): No Lack of Transportation (Non-Medical): No Physical Activity: Inactive (02/28/2025) Received from [facility] Exercise Vital Sign Days of Exercise per Week: 0 days Minutes of Exercise per Session: 0 min Stress: Stress Concern Present (02/28/2025) Received from [facility] [employer] [place] [employer] - Occupational Stress Questionnaire Feeling of Stress : To some extent Social Connections: Socially Isolated (02/28/2025) Received from [facility] Social Connection and Isolation Panel [NHANES] Frequency of Communication with Friends and Family: More than three times a week Frequency of Social Gatherings with Friends and Family: Once a week Attends Muslim Services: Never Active Member of Clubs or Organizations: No Attends Club or Organization Meetings: Never Marital Status: Intimate Partner Violence: Not At Risk (02/28/2025) Received from [facility] Humiliation, Afraid, Rape, and Kick questionnaire Fear of Current or Ex-Partner: No Emotionally Abused: No Physically Abused: No Sexually Abused: No Housing Stability: Low Risk (02/28/2025) Received from [facility] Housing Stability Vital Sign Unable to Pay for Housing in the Last Year: No Number of Times Moved in the Last Year: 0 Homeless in the Last Year: No Family History Family History[3] Allergies Allergies[4] Medications Prescriptions Prior to Admission[5] Review of Systems Constitutional: Negative for activity change and appetite change. HENT: Negative for congestion, facial swelling and hearing loss. Eyes: Negative for pain and discharge. Respiratory: Negative for apnea, cough, choking, chest tightness, shortness of breath, wheezing and stridor. Cardiovascular: Negative for chest pain and leg swelling. Gastrointestinal: Negative for abdominal distention, abdominal pain, blood in stool and diarrhea. Endocrine: Negative for cold intolerance and heat intolerance. Genitourinary: Negative for dysuria, flank pain and frequency. Musculoskeletal: Negative for arthralgias, back pain and gait problem. Skin: Negative for color change and pallor. Allergic/Immunologic: Negative. Neurological: Negative for dizziness and facial asymmetry. Hematological: Negative. Negative for adenopathy. Does not bruise/bleed easily. Psychiatric/Behavioral: Negative for agitation and behavioral problems. Last Recorded Vitals Visit Vitals BP 127/59 Pulse 55 Resp 16 Ht 1.651 m (5' 5 ) Wt 72.6 kg (160 lb) SpO2 99% BMI 26.63 kg/m??? Smoking Status Former BSA 1.82 m??? Physical Exam Vitals reviewed. (more content not included)...Magruder HospitalNURSNOTEon 83-63-1326WPYABTBBUA educated pt on d/c instructions. This included: site care, limited physical [...] wheeled off of unit with all of belongings.Magruder HospitalCNOVon 50-62-0396XVKVOjmaol Visit (NEIND4) SAMIR CASTILLO ([id number]) 1955 M Date Time Provider Department 04/29/25 11:00 AM EUN TRENT NEIND4 During your visit today, we recorded the following information about you: Pulse Blood pressure Weight 60/minute 107/62 72.6 kg Cielo Childers MA 04/29/2025 4:05 PM Signed 04/22/2025 PROMIS Global [...] SD worse than population and warrants attention Eun Trent DO 04/29/2025 4:05 PM Signed [facility] General Neurology Follow up/ Established patient visit Individuals who were included in, or assisted with the encounter were: Samir Castillo Eun Black DO Chief Complaint/Issues: Samir Castillo is a 70 year old male seen in the [facility] for General Neurology for: Memory [...] Assessment AND Plan 04/29/2025 - General Neurology, Eun Black, DO ASSESSMENT Mr. Castillo is a 70 year old man with memory issues and tension headache which have all improved. PLAN Follow-up in December when I am back from maternity leave, or a needed No diagnosis found. No follow-ups on file. Data Review Objective Current Outpatient Medications Medicati (more content not included)...NormalSuburban Community Hospital & Brentwood HospitalvelandOrders Onlyon 04-13-9830Vxkpbm [id number] Kel Castillo 1955 Date Provider Department Center 04/29/2025 [address]-SYZSYZPNFTFINN [facility] [facility] Family History Problem Relation Age of Onset Diabetes Mother Family Status - Relation Status Age at [facility] CenterNormalUniAshtabula County Medical Center36on [id number] asked Jacki in the lab if this could be done with Dr. Tolliver prior to his vascular surgery scheduled for 06/07/2025. He has no openings as of right now. Dr. Tolliver, would you be ok with Dr. Silvestre doing the cath? (Not even sure if that would be ok with the patient and his daughter but I thought I'd start with you.)NormalTogus VA Medical Center36Please let the patient and his daughter know that his ejection [...] daughter states she is not happy with [facility] and would like a recommendation. I did advise her I would send a referral to [facility] and she stated that would [...] father need the heart cath prior. Please advise.Magruder HospitalTelephoneon [id number] JoseKel 1955 M Date Provider Department Center 2025 [id number] PATTERSON SAMI Rasmussen Family History Problem Relation Age of Onset Diabetes Mother Family Status - Relation [facility] HospitalOrders Onlyon 89-63-6415Tszywa [id number] Demetri Castilloardo 1955 M Date Provider Department Center 04/27/2025 [id number], HISTORICAL SAMI [facility] Family History Problem Relation Age of Onset Diabetes Mother Family Status - Relation Status Age at [facility]36on 91-40-833971Ezjzhtqbl stress test result from 04/20/2025: Sarah Tolliver [...] Tolliver. He has an apt today at [facility] with vascular surgery. Order for limited echo faxed to [facility].Magruder HospitalOffice Visiton 95-21-3901Ivasbw-up [id number] Kel Castillo 1955 M Date Provider Department Center 04/21/2025 Twila-ITALO LYLES HVCVASENDO [place] [facility] Family History Problem Relation Age of Onset Diabetes Mother Family Status - Relation Status Age at Mother Level of Service:65202 [place] OFFICE/OUTPATIENT NEW MODERATE MDM 45 MINUTES Reason for Visit and Comments: Consult [484] - PAD, leg painNormalUniversity of Parkview Regional HospitalOrders Onlyon 73-04-5272Ryvcgv [id number] Kel Castillo 1955 M Date Provider Department Center 04/20/2025 [id number]-GTHQXYAVYCFINN PATTERSON CARD [place] [facility] Family History Problem Relation Age of Onset Diabetes Mother Family Status - Relation Status Age at MotherNormalUniversity St. [facility]36on 12-82-944710Gz calling about bmp results, they are in media please adviseNormalUniversity St. Rita's HospitalANESon 57-08-6007NLOE Attestation signed by Sarah Tolliver MD at 04/08/2025 9:29 AM Sarah Tolliver MD, MPH, [facility], [facility], [facility] Interventional Cardiology Pager Email: [email or web address] Patient: Kel Castillo Procedure Information Date/Time: 04/08/2530 Procedures: Aortogram - PC APPROVED AO/ RUNOFFS Lower extremity angiogram (Bilateral) Location: [facility] DIVIDEND DEPOSIT VOUCHER CLERK 3 / [facility] (Cath) Providers: Sarah Tolliver MD [...] products. Plan discussed with attending. Additional Equipment RequestsNormalUniversLutheran HospitalBASIC METABOLIC PANELon 32-74-9055Rynho gap [Moles/Vol]10 mmol/LNormal7-20UnCincinnati Children's Hospital Medical CenterComment on above:Performed By: #### LAB15 ####[facility] (AKER)[address] [place], [place] [address]Ocqweoe [Mass/Vol]9.3 mg/dLNormal8.6-10.3UnCincinnati Children's Hospital Medical CenterComment on above:Performed By: #### LAB15 ####[facility] (BEAKER)[address] [place] [address] Chloride [Moles/Vol]106 mmol/WMcgcax30-175ArazocejysCincinnati Children's Hospital Medical Center Comment on above:Performed By: #### LAB15 ####[facility] (BEAKER)[address], [place] [address]QL7 [Moles/Vol]28 mmol/BVpmzme28-15BvenxgduujCincinnati Children's Hospital Medical CenterComment on above:Performed By: #### LAB15 ####[facility] ([facility])[address], [place] [address]Yblnhydiau [Mass/Vol]2.18 mg/dL High0.70-1.30UnCincinnati Children's Hospital Medical CenterComment on above:Performed By: #### LAB15 ####[facility] ([facility])[address] [place] [address] GLOMERULAR FILTRATION RATE ML/MIN/1.73 SQ M.CPGFPQAIS39.6 mL/min/1.73m*2Low>60.0 [facility] Medical CenterComment on above:Result Comment: The [facility]???s estimated glomerular filtration rate (eG FR) will no longer include consideration of race [...] potential consequences that do not disproportionately affect anyone group of individuals. Performed By: #### LAB15 ####[facility] ([facility])[address] [place], [place] [address]Cmroggc [Mass/Vol]102 mg/bFVfxw74-215NubwggrwroCincinnati Children's Hospital Medical CenterComment on above:Performed By: #### LAB15 ####[facility] ([facility])[address] [place], [place] [address]Tsjyprwre [Moles/Vol]4.4 mmol/LNormal 3.5-5.1UnCincinnati Children's Hospital Medical CenterComment on above:Performed By: #### LAB15 ####[facility] ([facility])[address] [place], [place] [address]Hnzycu [Moles/Vol]140 mmol/DPtqbgp656-330BisowoypgoCincinnati Children's Hospital Medical CenterComment on above:Performed By: #### LAB15 ####[facility] ([facility])[address] [place], [place] [address]Azvv nitrogen [Mass/Vol]34 mg/dLHigh7-25UnCincinnati Children's Hospital Medical CenterComment on above:Performed By: #### LAB15 ####[facility] ([facility])[address] [place], [place] [address]IFWG NITROGEN/CREATININE (MASS RATIO) IN SER/PLAS15.6NormalUniAshtabula County Medical CenterComment on above: Performed By: #### LAB15 ####[facility] ([facility])[address] [place], [place] [address]XLWar 06-04-7977Wayrqjxtrum distribution width (RBC) [Ratio]14.6 % Rdglsg86.5-15.0UnCincinnati Children's Hospital Medical CenterComment on above:Performed By: #### KHR929 ####[facility] (BEAKER)[address] [place] [address] ERYTHROCYTE MEAN CORPUSCULAR HEMOGLOBIN CONCENTRATION (G/DL) BY IVJBKZGBJ50.1 g/gBZegfix26.0-35.0UnCincinnati Children's Hospital Medical CenterComment on above:Performed By: #### [id number] ####[facility] (BEAKER)[address] [place], [place] [address]Tjeajymtqx (Bld) [Volume fraction]34.1 %Low39.0-50.0UnCincinnati Children's Hospital Medical CenterComment on above:Performed By: #### [id number] ####[facility] (BEAKER)[address] [place], [place] [address]Lyuwjowcin (Bld) [Mass/Vol]11.3 g/dL Low13.0-17.0UnCincinnati Children's Hospital Medical CenterComment on above:Performed By: #### [id number] ####[facility] (BEAKER)[address] [place], [place] [address]AIQ (RBC) [Entitic mass]30.6 elAxrdvj34.0-33.0UnCincinnati Children's Hospital Medical Center Comment on above:Performed By: #### LPR007 ####[facility] (BEAKER)[address] [place], [place] [address]UDV (RBC) [Entitic vol]92.4 hDBhfwgf06.0-98.0 [facility] VA Medical CenterComment on above:Performed By: #### [id number] ####[facility] (BE[facility]ER)[address] [place], [place] [address]ZUSSNQFFP (10*3/UL) IN BLOOD AUTOMATED TCLLP012 10*3/oOCqsyly034-749MflqpmddmvCincinnati Children's Hospital Medical CenterComment on above:Performed By: #### [id number] ####[facility] (BE[facility]ER)[address] [place], [place] [address]TRN (Bld) [#/Vol]3.69 10*6/uLLow 4.20-5.70UnCincinnati Children's Hospital Medical CenterComment on above:Performed By: #### AVD354 ####[facility] ([place])[address] [place] [address]LMR (Bld) [#/Vol]6.07 10*3/uLNormal4.00-10.60UnCincinnati Children's Hospital Medical CenterComment on above:Performed By: #### IAL904 ####[facility] ([place])[address] [place] [address]OOuk 34-92-5385IT Attestation signed by Sarah Tolliver MD at [...] his baseline creatinine. Sarah Tolliver MD, MPH, [facility], [facility], [facility] Interventional Cardiology Pager Email: [email or web address] History Of Present Illness Kel Castillo is a 69 y.o. male presenting initally in clinic with leg pain. He has an extensive PMH of CAD s/p 3V CABG in 2009, CKD 4, PAD, HTN, HLD, COPD. His last cath was in 2019 which showed severe [place] CAD, patent SPRAGUE-LAD and SVG-OM but occluded radial-PDA. 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 His last TTE in 02/19/25 notes [...] aortogram w/ bilateral angiography Evgeny Arceo MD Ivf Embryologist, PGY-4 [facility] 04/08/25 9:15 AM [1] Medications Prior [...] by mouth in the morning. 04/08/2025 Morning dmoqjlotcvz-jllrvmdsa-ltpvxudc (Huy (more content not included)...Normal [facility] VA Medical CenterNURSNOTEon 55-61-1081FQLXOBYIRI educated pt on d/c instructions. This included: site care, limited physical [...] wheeled off of unit with all of belongings.NormalTogus VA Medical CenterOrders Onlyon 99-46-8166Lfmrku [id number] Kel Castillo 1955 M Date Provider Department Center 04/08/2025 Estrellita7-VALERIEREGINA [facility] [place] HeartVAS Family History Problem Relation Age of Onset Diabetes Mother Family Status - Relation Status Age at MotherNormalUniversLutheran HospitalCNPNon 33-99-9355ACUZPflmqcnvv (AGCARDPOB) CASTILLOSAMIR FISCHER ([id number]) 1955 M Date Time Provider Department 04/05/25 BILL GANT AGCARDPOB During your visit today, we recorded the following information about you: Mariana Wheeler LPN 04/05/2025 4:03 PM Signed Chest x-ray results received from [facility]. Scanned in for review. 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 Problem List As Of Date 04/05/2025 Noted Resolved Dyspnea and respiratory abnormalities [R06.00, *02/09/2022 Recurrent major depression in partial remission*04/12/2022 MCI (mild cognitive impairment) [G31.84] 04/12/2022 Encounter Status:Closed by MARIANA WHEELER on 04/05/25[facility]XR [facility] 2 VWSon 79-84-5511VN CHEST 2 VWSXR CHEST 2 VWS HISTORY: Other emphysema (CMS-HCC) COMPARISON: 02/26/2024 TECHNIQUE: PA and lateral views of the chest. FINDINGS: Unchanged cardiopericardial silhouette. Streaky opacities right lower lung potentially atelectasis or scarring. Volume loss right lung. No dense consolidation. No pneumothorax. No pleural effusion. IMPRESSION: Chronic lung disease without definite acute pulmonary process. Finalized by Roc Valverde MD on 04/05/2025 2:41 [facility] CERVICAL SPINE WO CONTon 89-72-9220VI CERVICAL SPINE WO CONTMR CERVICAL SPINE WO CONT HISTORY: A 69-year-old male with a history of the chronic neck pain. TECHNIQUE: Multiplanar and multisequence MRI examination of the cervical spine is performed. COMPARISON: Comparison is made with the plain film radiographs of the cervical spine of 01/11/2025. FINDINGS: The vertebral heights are normal. There are severe disc degenerative changes at C5-C6 andC6-C7. There is a heterogeneous marrow signal from degenerative arthritis. No acute bony pathology seen. There is loss of normal cervical lordosis but no spondylolisthesis is identified. No significant prevertebral soft tissue abnormality seen. At C2-C3, C3-C4 and C4-C5, there is no evidence of disc herniation, spinal stenosis or narrowing ofthe neural foramina. At C5-C6 and C6-C7, there [...] at C5-C6 and C6-C7 with moderate degree ofspinal stenosis and narrowing of the neural foramina. Associated minimal disc bulging is seen at these levels. * No evidence of disc herniation or spinal stenosis at other levels in the cervical region. * No evidence of cord edema or myelomalacia. Finalized by Kana Swain MD on 04/03/2025 12:02 [facility] NT-PROBNP SERPL-MCNCon 60-78-9708Dpkiwwioklv peptide B (Bld) [Mass/Vol]4813 pg/mLHighNINF - 125 pg/mLNOMS HealthcareSpecimen Type: BLOOD SPECIMEN Ordering Facility: [facility] Address: [address], [place] [address] Original Ordering Provider: BILL Morrison 99-32-6543VKLWGfyigm Visit (AGCARDPOB) SAMIR CASTILLO ([id number]) 1955 M Date Time Provider Department 04/01/25 [...] a new patient visit. He lives in [place] and gets most of his care in [place] at [facility] but just wants a second opinion [...] supplemental oxygen. 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 He quit smoking 40 [...] 1/2 TABLETS BY MOUTH EVERY DAY omega 6-mhx-vzl-fish oil (FISH OIL) 100-160-1,000 mg cap Take [...] Date: Wt: 10/12/2024 169 (more content not included)...NormalMainegeneral Medical Center ECG B/O W INTERP (MED OFFICE)on 83-68-5266Gbspmq sinus rhythm nonspecific ST-T changes septal Q wavesOhioHealth Van Wert HospitalNT PRO BNPon 04-01-2025 Natriuretic peptide.B prohormone N-Terminal [Mass/Vol]4813 pg/mLHighNINF - 125 pg/mLCleveland ClinicNT-proBNP SerPl-mCncon 28-11-5900Wbontugyhsy peptide.B prohormone N-Terminal [Mass/Vol]4813 pg/mLHigh<125Mainegeneral [facility] Center Comment on above:Order Comment: Specimen Type: BLOOD SPECIMEN Ordering Facility: [facility] Address: [address] [place] [address] [place], [place] [address]Performed By: #### [id number] #### [facility] CLIA [id number] [address] Panel Informationon 04-01-2025 Interpretation and review of laboratory resultsAbCone Health Moses Cone Hospital36on 82-39-371905Etmgx with daughter and informed her I would put orders in and [facility] would be contacting her to set this up. I advised her her father would need lab orders about 1 week prior to scheduled procedure. She verbalized understanding. Orders entered and faxed to [facility]36Spoke with his daughter Nini. She says he's having extreme leg pain . You aren't here in [place] again for another 4 weeks. Daughter would like to proceed with LE angiogram if that's ok with you?[place] [address]I received a call from radiology at [facility]. This patient is here now for CTA abdomen/pelvis. Due to elevated s. creatinine (2.07, GFR 32), the test was unable to be performed. Would you like him to try again? How long should he wait to get it rescheduled? Thanks.[facility]uder HospitalOrders Onlyon 17-96-0514Rpuazm [id number] Kel Castillo 1955 M Date Provider Department Center 03/11/2025 IAN HORNE [facility] Family History Problem Relation Age of Onset Diabetes Mother Family Status - Relation Status Age at MotherNormalUniversGerman Hospital CREATININEon 03-11-2025 Creatinine [Mass/Vol]2.07 mg/dLHigh0.70 - 1.30 mg/dLNOVA HealthcareGFR/1.73 sq M.predicted CKD-EPI (S/P/Bld) [Vol rate/Area]39Low>=60 mL/min/1.73m 2NOMS HealthcareInterpretation and review of laboratory resultsAbMyMichigan Medical Center Clare EGFR-NON AF FWDWVRYA27Avz>=60 mL/min/1.73m 2NOMS HealthcareCLINISYNCNOMS Whcbfhzmpq69xi 34-76-973707Kae telephone note on 02/24/[address] Tolliver. [place] [address]on 96-78-959776Qtonrzwbn HUBER's performed on 02/18/2025: MD Ian Juarez MA If the patient is having leg pain, please order an abdominal CTA with run offs (bilateral lower extremity angiography) Thanks. Spoke with patient's daughter and she states he's having lots of leg pain. Told her Dr. Tolliver would like further testing and she agreed. Order faxed to [facility]. Daughter verbalized understanding.[facility]36 Spoke to daughter advised her of Dr. Levi ECHO findings. Daughter verbalized understanding. Daughter is requesting results of HUBER'S advised daughter as soon as Reviews them we will call her with the results. Daughter states she is very concerned with what she read on Offers.comhart about HUBER test resultsNormalUniAdams County Regional Medical CenterEGMENTAL BLOOD PRESSUREon 04-19-3556TfhMount [place] [address] Cardiology Report Signed Patient: KEL CASTILLO Jr. MR#: [id number] : 1955 Acct:[id number] Age/Sex: 69 / M ADM Date: 02/18/25 Loc: CARD Attending Dr: Sarah Tolliver M.D. Ordering Physician: Sarah Tolliver M.D. Date of Service: 02/18/25 Procedure(s): CA segmental UE or LE LEENA Accession Number(s): [id number] cc: Noa Watson CERTIFIED RETINAL ANGIOGRAPHER; Sarah Tolliver M.D. [facility] Test Date: 2025-02-18 Pat Name: KEL CASTILLO Department: Room: - Gender: Male Grades 9 Thru 12 Visiting Teacher: : 1955 Requested By: SARAH TOLLIVER Order Number: [id number] Reading MD: SARAH TOLLIVER Interpretive Statements Bilateral, moderately reduced ankle-brachial indices. 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 Recommend further imaging with CT or invasive angiography. Electronically Signed On 02-23-2025 12:52:03 EDT by SARAH TOLLIVER Dictated By: Sarah Tolliver M.D. Signed By: 02/23/25 1252 02/23/25 1252 DD/ 0841 TD/TT: Manager Manufacturing:Daniel Ramirez MD - 02/23/2025 [place] [address] Cardiology Report Signed Patient: KEL CASTILLO Jr. MR#: [id number] : 1955 Acct:[id number] Age/Sex: 69 / M ADM Date: 02/18/25 Loc: CARD Attending Dr: Sarah Tolliver M.D. Ordering Physician: Sarah Tolliver M.D. Date of Service: 02/18/25 Procedure(s): CA segmental UE or LE LEENA Accession Number(s): [id number] cc: Noa Watson CERTIFIED RETINAL ANGIOGRAPHER; Sarah Tolliver M.D. [facility] Test Date: 2025-02-18 Pat Name: KEL CASTILLO Department: Room: - Gender: Male Grades 9 Thru 12 Visiting Teacher: : 1955 Requested By: SARAH TOLLIVER Order Number: [id number] Reading MD: SARAH TOLLIVER Interpretive Statements Bilateral, moderately reduced ankle-brachial indices. 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 Recommend further imaging with CT or invasive angiography. Electronically Signed On 02-23-2025 12:52:03 EDT by SARAH TOLLIVER Dictated By: Sarah Tolliver M.D. Signed By: 02/23/25 1252 02/23/25 1252 DD/ 0841 TD/TT: Manager Manufacturing: EDWIN [facility] Shriners HospitalSEENTAL BLOOD PRESSUREOrdered By: Radiologist Radiology on 90-17-3218KKIZ [employer] Work Phone: [phone] 62-19-362864Jodslir's daughter called asking about result of echo. It was just scanned into you about 10 minutes ago. She saw the result from [facility] portal Saturday night and was concerned when she saw the word severe in the result. Daughter told me she called the [facility] physician intelligence consultant Saturday night. I told her it was fine to wait until you reviewed result and I would call her. Thanks.[facility]uder HospitalTelephoneon [id number] Kel Castillo 1955 M Date Provider Department Center 02/22/2025 RubenIAN OLIVA [facility] Family History Problem Relation Age of Onset Diabetes Mother Family Status - Relation Status Age at MotherNormalUniAshtabula County Medical CenterCA ECHO DOPPLER COMPLETEon 17-32-1700Hbj[place] [address] Cardiology Report Signed Patient: KEL CASTILLO Jr. MR#: [id number] : 1955 Acct:[id number] Age/Sex: 69 / M ADM Date: 02/18/25 Loc: CARD Attending Dr: Sarah Tolliver M.D. Ordering Physician: Sarah Tolliver M.D. Date of Service: 02/18/25 Procedure(s): CA echo doppler complete Accession Number(s): [id number] cc: Noa Watson NP; Sarah Tolliver M.D. Patient Name: KEL CASTILLO MR#: [id number] : 1955 Exam Date: 02/18/2025 Ordering Doctor: [...] Area (VTI): 2.12 cm2, 2.12 cm2 Deceleration [place]: Pressure Half-Time: Peak Velocity(Antegrade Flow): 1.47 m/s Peak Gradient(Antegrade Flow): 8.67 mm[Hg] Mean Velocity(Antegrade Flow): 0.98 m/s Mean Gradient(Antegrade Flow): 4.49 mm[Hg] Velocity Time Integral: 37.64 cm Tricuspid Valve Peak Velocity (Regurgitant Flow): 2.39 m/s, 3.11 m/s, 3.28 m/s Peak Velocity: Pulmonic Valve Mean Gradient: Mean Velocity: (more content not included)...TBHRadiology, Radiologist, MD - 02/19/2025 [place] [address] Cardiology Report Signed Patient: KEL CASTILLO Jr. MR#: [id number] : 1955 Acct:[id number] Age/Sex: 69 / M ADM Date: 02/18/25 Loc: CARD Attending Dr: Sarah Tolliver M.D. Ordering Physician: Sarah Tolliver M.D. Date of Service: 02/18/25 Procedure(s): CA echo doppler complete Accession Number(s): [id number] cc: Noa Watson CERTIFIED RETINAL ANGIOGRAPHER; Sarah Tolliver M.D. Patient Name: KEL CASTILLO MR#: [id number] : 1955 Exam Date: 02/18/2025 Ordering Doctor: [...] Area (VTI): 2.12 cm2, 2.12 cm2 Deceleration [place]: Pressure Half-Time: Peak Velocity(Antegrade Flow): 1.47 m/s [...] M.D. Signed By: 02/19/251822 DD/ 21 TD/TT: Manager Manufacturing: [facility] HospitalRadiology Study observation (narrative)[facility] ECHO DOPPLER COMPLETEOrdered By: Radiologist Radiology on 81-81-1837YGCP [employer] Work Phone: SEGMENTAL BLOOD PRESSUREon 08-39-7470Gtlxxyhhr Study observation (narrative)[facility] HospitalCBC (NO DIFF)on 33-58-7598Wqsifdibkay distribution width (RBC) [Ratio]14.9 %Vwjqxd34.5-15[facility] Comment on above:Performed By: #### UA #### [facility] ([id number]) [address], [address] [place], [place] [address]Dbfchhbxjs (Bld) [Volume fraction]34.1 %Xdx20-85UqzKywxicGerman HospitalComment on above:Performed By: #### UA #### [facility] ([id number]) [address], [address] [place], [place] [address]Zfwpyqcoer (Bld) [Mass/Vol]11.5 g/kHAec74-41XigMupdbjNortheast Baptist HospitalComment on above:Performed By: #### UA #### [facility] ([id number]) [address], [address] [place], [place] [address]IQT (RBC) [Entitic mass]30.6 spGrxzmr06-69ScbZqxuxbGerman HospitalComment on above:Performed By: #### UA #### [facility] ([id number]) [address], [address] [place] [address]ZDHE (RBC) [Mass/Vol]33.6 g/mAQkkxmk41-28KqmRszfzaNortheast Baptist HospitalComment on above:Performed By: #### UA #### [facility] ([id number]) [address], [address] [place], [place] [address]JEC (RBC) [Entitic vol]91 cFWcgcfg31-003UbxIssnggGerman HospitalComment on above:Performed By: #### UA #### [facility] ([id number]) [address], [address] [place], [place] [address]Ynkewerp mean volume (Bld) [Entitic vol]7.5 fLNormal7-12 German HospitalComment on above:Performed By: #### UA #### [facility] ([id number]) [address], [address] [place], [place] [address]Rfrglprls (Bld) [#/Vol]122 10*3/fNUmo786-886NusYmhsczNortheast Baptist HospitalComment on above:Performed By: #### UA #### [facility] ([id number]) [address], [address] [place], [place] [address]LOS COUNT3.75 X10E12/LLow4.1-5.7[facility] Comment on above:Performed By: #### UA #### [facility] ([id number]) [address], [address] [place], [place] [address]PBI (Bld) [#/Vol]5.5 10*3/uLNormal4-11[facility] Comment on above:Performed By: #### UA #### [facility] ([id number]) [address] [place], [place] [address]CPCICQBQLtj 78-78-5412Rdfgwxjol [Mass/Vol]2.0 mg/dLNormal1.8-2.6 German HospitalComment on above:Performed By: #### UA #### [facility] ([id number]) [address], [address] [place], [place] [address]DITSTHGQGDUT / CREATININE URINE RATIOon 17-65-6207Sbntcfc DL <= 20 mg/L (U) [Mass/Vol]0.9 mg/dLNormal0.0-1.9German HospitalComment on above:Performed By: #### CBC, 2276-4, 1-8, 2131-9, 2283-8, 48707-5, FEPR, 62550-9, LIVR, 93936-6, RENAL, 3084-1 #### [facility] ([id number]) [address], [address] [place], [place] [address]SFFC/CREAT RATIO6.8 mg/gNormal0.0-30.0[facility] Comment on above:Performed By: #### CBC, 2276-4, 1-8, 2131-9, 4-8, 15079- 6, FEPR, 98186-7, LIVR, 67099-1, RENAL, 3084-1 #### [facility] ([id number]) [address] [place], [place] [address]KYXGP CREATININE,KTI313.37 mg/dLNormalProNortheast Baptist Hospital Comment on above:Performed By: #### CBC, 2276-4, 1-8, 2131-9, 2283-8, 69124- 6, FEPR, 05143-2, LIVR, 73028-8, RENAL, 3084-1 #### [facility] ([id number]) [address] [place], [place] [address]AKKAQ PANELon 69-85-5580Xgpenkr [Mass/Vol]4.1 g/dLNormal3.2-5.3 German HospitalComment on above:Performed By: #### UA #### [facility] ([id number]) [address], [address] [place] [address]Gpuav gap [Moles/Vol]9 mmol/LNormal5-15German HospitalComment on above:Performed By: #### UA #### [facility] ([id number]) [address], [address] [place], [place] [address]Pqvqoja [Mass/Vol]9.1 mg/dLNormal8.5-10.5PSalem City HospitalComment on above:Performed By: #### UA #### [facility] ([id number]) [address], [address] [place], [place] [address]Rnasxhjo [Moles/Vol]110 mmol/XSixz36-112DbcInkmqaGerman HospitalComment on above:Performed By: #### UA #### [facility] ([id number]) [address], [address] [place] [address]BO2 [Moles/Vol]26 mmol/DVbpedy95-59JisVugwexSalem City Hospital Comment on above:Performed By: #### UA #### [facility] ([id number]) [address], [address] [place] [address]Wdraskbgpm [Mass/Vol]1.87 mg/dLHigh0.60-1.30German HospitalComment on above:Result Comment: METHOD TRACEABLE TO IDMS STANDARD Performed By: #### UA #### [facility] ([id number]) [address], [address] [place] [address]FZQ/1.73 sq M.predicted among non-blacks MDRD (S/P/Bld) [Vol rate/Area]38 mL/min/{1.73_m2}Low>=60ProNortheast Baptist HospitalComment on above: Result Comment: Reported eGFR is based on the CKD-EPI 2020 equation that does not use a race coefficient.Performed By: #### UA #### [facility] ([id number]) [address], [address] [place] [address]Oojdugo [Mass/Vol]93 mg/qEAeolcz26-27IyuCbfpmnGerman Hospital Comment on above:Performed By: #### UA #### [facility] ([id number]) [address], [address] [place], [place] [address]Xcoriatoy [Mass/Vol]4.0 mg/dLNormal2.4-4.9ProNortheast Baptist HospitalComment on above:Performed By: #### UA #### [facility] ([id number]) [address], [address] [place], [place] [address]Oylyexzok [Moles/Vol]4.3 mmol/LNormal3.5-5.0ProNortheast Baptist HospitalComment on above:Performed By: #### UA #### [facility] ([id number]) [address], [address] [place], [place] [address]Deixnp [Moles/Vol]145 mmol/IBigklu572-343JsyGixszl [facility]remont HospitalComment on above:Performed By: #### UA #### [facility] ([id number]) [address], [address] [place], [place] [address]Cyrf nitrogen [Mass/Vol]30 mg/dLHigh5-27ProNortheast Baptist HospitalComment on above:Performed By: #### UA #### [facility] ([id number]) [address], [address] [place], [place] [address]QBZNLCRAUSpz 23-84-4873Vruytbwey Ql (U)NegativeNormalNegative [facility] Medical CenterComment on above:Performed By: #### UA #### [facility] ([id number]) [address], [address] [place], [place] [address]HMRHO/HGBNegativeNormalNegativeGerman HospitalComment on above:Performed By: #### UA #### [facility] ([id number]) [address], [address] [place], [place] [address]Kmmpp (U)YellowNormalYellow, ColorlessGerman Hospital Comment on above:Performed By: #### UA #### [facility] ([id number]) [address], [address] [place], [place] [address]Xalivwg Ql (U)NegativeNormalNegSelect Medical [facility] [place] Comment on above:Performed By: #### UA #### [facility] ([id number]) [address], [address] [place], [place] [address]Hhdahon Ql (U)NegativeNormalNegativeGerman Hospital Comment on above:Performed By: #### UA #### [facility] ([id number]) [address], [address] [place], [place] [address]Fqtyoticm esterase Test strip Ql (U)NegativeNormalNegative ProMw. d. partlow developmental centera Marinhealth Medical CenterComment on above:Performed By: #### UA #### [facility] ([id number]) [address], [address] [place], [place] [address]Jpzsspg Ql (U)NegativeNormalNegSelect Medical [facility] [place] Comment on above:Performed By: #### UA #### [facility] ([id number]) [address], [address] [place], [place] [address]US,URINE6.5Xnqzoz3.0-8.5Pro[facility] Marinhealth Medical CenterComment on above:Performed By: #### UA #### [facility] ([id number]) [address], [address] [place], [place] [address]Spdjdfw Ql (U)NegativeNormalNegativeGerman Hospital Comment on above:Performed By: #### UA #### [facility] ([id number]) [address], [address] [place], [place] [address]Xpkcggiz gravity (U) [Rel density]1.285Fcexky2.003-1.035 [facility] Medical CenterComment on above:Performed By: #### UA #### [facility] ([id number]) [address], [address] [place], [place] [address]VINHUBKRWFeahuPfgajxCewytBweFdsuun Fremont HospitalComment on above:Performed By: #### UA #### [facility] ([id number]) [address], [address] [place], [place] [address]COPATBKLLMGV<1.1 eu/dLNormal<1.1 eu/dLGerman Hospital Comment on above:Performed By: #### UA #### [facility] ([id number]) [address], [address] [place], [place] [address]KG SPINE CERVICAL 3 VWS OR LESSon 24-36-1877ZE SPINE CERVICAL 3 VWS OR LESSXR SPINE CERVICAL 3 VWS OR LESS XR SPINE CERVICAL 3 VWS OR LESS INDICATION: Neck pain. FINDINGS: Straightening of the normal cervical spine lordotic curvature. The vertebral body heights are preserved. There are moderate to severe degenerative changes at C5-C6 and C6-C7 with intervertebral disc spaceheight loss, endplate sclerosis, and osteophyte formation. The atlantoaxial space is intact. Posterior elements intact. IMPRESSION: 1. No acute findings. 2. Moderate to severe degenerative changes at C5-C6 and C6-C7 as above. Finalized by Oh Wild MD on 01/12/2025 12:57 AMNormalProNortheast Baptist HospitalCOMPLETE BLOOD COUNTon 31-28-4563Nzihnnyaoux distribution width (RBC) [Ratio]15.0 %Vqpiif76.5-15.0German HospitalComment on above:Performed By: #### CBC, 2276-4, 2731-8, 2132-9, 2284-8, 55228-2, FEPR, 30756-1, LIVR, 54134-5, RENAL, 3084-1 #### [facility] ([id number]) [address], [address] [place], [place] [address]Saegqkzjkn (Bld) [Volume fraction]36.4 %Yep72-39SrnGfcqnuNortheast Baptist HospitalComment on above:Performed By: #### CBC, 6-4, 2730-8, 9, 2283-8, 34234-0, FEPR, 49434-4, LIVR, 72014-0, RENAL, 3084-1 #### [facility] ([id number]) [address] [facility] [place], [place] [address]Eytmhxkusm (Bld) [Mass/Vol]12.5 g/dLLow13.0-17.0German HospitalComment on above:Performed By: #### CBC, 2275-4, 2730-8, 9, 8, 90143-5, FEPR, 77037-3, LIVR, 98848-3, RENAL, 3084-1 #### [facility] ([id number]) [address], [address] [place], [place] [address]OBS (RBC) [Entitic mass]30.8 aoPnhawk80-97VrbAjkocrNortheast Baptist HospitalComment on above:Performed By: #### CBC, 6-4, 2730-8, 9, 8, 63333-7, FEPR, 64612-8, LIVR, 57240-7, RENAL, 3084-1 #### [facility] ([id number]) [address], [address] [place], [place] [address]ITRL (RBC) [Mass/Vol]34.4 g/qYGtxlfk40-82PxmCfwrbnNortheast Baptist HospitalComment on above:Performed By: #### CBC, 6-4, 2730-8, 9, 2283-8, 74101-4, FEPR, 96014-1, LIVR, 88446-3, RENAL, 3084-1 #### [facility] ([id number]) [address], [address] [place], [place] [address]WCE (RBC) [Entitic vol]89 nFOpqxgo27-985HydJweyur [facility]remont HospitalComment on above:Performed By: #### CBC, 6-4, 1-8, 2131-9, 2283-8, 69146-3, FEPR, 24103-2, LIVR, 21948-2, RENAL, 3084-1 #### [facility] ([id number]) [address] [facility] [place], [place] [address]Bthhokei mean volume (Bld) [Entitic vol]7.4 fLNormal7-12 German HospitalComment on above:Performed By: #### CBC, 6-4, 2730- 8, 2131-9, 2283-8, 37740-7, FEPR, 55403-8, LIVR, 70440-5, RENAL, 3084-1 #### [facility] ([id number]) [address], [address] [place], [place] [address]Gfoovmrzg (Bld) [#/Vol]145 10*3/eEXtb859-853HvvDbpowdNortheast Baptist HospitalComment on above:Performed By: #### CBC, 6-4, 2730-8, 2131-9, 2283-8, 51076-2, FEPR, 19587-2, LIVR, 09895-3, RENAL, 3084-1 #### [facility] ([id number]) [address], [address] [place], [place] [address]JFE COUNT4.08 X10E12/LLow4.10-5.70[facility] Hospital Comment on above:Performed By: #### CBC, 6-4, 1-8, 2131-9, 228-8, 81505- 6, FEPR, 95520-7, LIVR, 71647-4, RENAL, 3084-1 #### [facility] ([id number]) [address] [place] [address], [address] [place], [place] [address]PMA (Bld) [#/Vol]5.3 10*3/uLNormal4.0-11.0German HospitalComment on above:Performed By: #### CBC, 6-4, 2730-8, 9, 2283-8, 14355-4, FEPR, 33011-4, LIVR, 77753-4, RENAL, 3084-1 #### [facility] ([id number]) [address] [place] [address], [address] [place], [place] [address]IOHGVAYQru 16-08-0119Zfclknkj [Mass/Vol]67 ng/oOEtesys61-823 German HospitalComment on above:Performed By: #### CBC, 6-4, 2730- 8, 9, 2283-8, 87172-5, FEPR, 73654-8, LIVR, 47869-3, RENAL, 3084-1 #### [facility] ([id number]) [address] [place] [address], [address] [place], [place] [address]Tdjpbj [Mass/Vol]on 41-72-2199SANLR ACID24.5 ng/mLNormal>5.8 German HospitalComment on above:Result Comment: NEW REFERENCE RANGE Performed By: #### CBC, 6-4, 2730-8, 9, 2283-8, 26090-2, FEPR, 48618-3, LIVR, 81741-3, RENAL, 3084-1 #### [facility] ([id number]) [address] [place] [address], [address] [place], [place] [address]OJVX PROFILEon 00-71-8918Umbe [Mass/Vol]75 ug/kXSjajdd56-098 German HospitalComment on above:Performed By: #### CBC, 6-4, 2730- 8, 2132-04, 2283-8, 75937-3, FEPR, 86938-2, LIVR, 05531-9, RENAL, 3084-1 #### [facility] ([id number]) [address] [place] [address], [address] [place], [place] [address]NYYW AEZSLIH361 ug/bYAtfdog382-566MwoYbteieGerman Hospital Comment on above:Performed By: #### CBC, 6-4, 2730-8, 2131-9, 2283-8, 39676- 6, FEPR, 90846-5, LIVR, 76564-0, RENAL, 3084-1 #### [facility] ([id number]) [address] [place] [address], [address] [place], [place] [address]TNTA LFAAMIRQRE94 % MYSMNLIOEIRrg84-59MhbDagnum [facility] Comment on above:Performed By: #### CBC, 6-4, 2730-8, 2131-9, 2283-8, 03936- 6, FEPR, 18059-3, LIVR, 45920-1, RENAL, 3084-1 #### [facility] ([id number]) [address] [place] [address], [address] [place], [place] [address]QLUKT PANELon 76-34-8207Vurcsbf [Mass/Vol]4.3 g/dLNormal3.2-5.3 [facility] Hospitaledica Marinhealth Medical CenterComment on above:Performed By: #### UA #### [facility] ([id number]) [address] [place] [address], [address] [place], [place] [address]DON [Catalytic activity/Vol]48 U/LFaewoh83-019FsyRfjosuNortheast Baptist HospitalComment on above:Performed By: #### UA #### [facility] ([id number]) [address] [place] [address], [address] [place], [place] [address]FBT [Catalytic activity/Vol]28 U/LNormal0-40ProNortheast Baptist HospitalComment on above:Performed By: #### UA #### [facility] ([id number]) [address] [address], [address] [place], [place] [address]ZQQ [Catalytic activity/Vol]33 U/LNormal0-41ProNortheast Baptist HospitalComment on above:Performed By: #### UA #### [facility] ([id number]) [address] [place] [address], [address] [place], [place] [address]Gyquzywnf [Mass/Vol]0.6 mg/dLNormal0.3-1.2PSalem City HospitalComment on above:Performed By: #### UA #### [facility] ([id number]) [address] [facility] [address], [address] [place], [place] [address]Zipcxewiz.direct [Mass/Vol]0.2 mg/dLNormal0.0-0.4German HospitalComment on above:Performed By: #### UA #### [facility] ([id number]) [address] [place] [address], [address] [place], [place] [address]Wxragyo [Mass/Vol]6.7 g/dLNormal6.0-8.0ProNortheast Baptist HospitalComment on above:Performed By: #### UA #### [facility] ([id number]) [address] [place] [address], [address] [place], [place] [address]Ddqgb 1996 panelon 20-68-6478Csxvaqgtooj [Mass/Vol]119 mg/dLLow 150-200ProNortheast Baptist HospitalComment on above:Performed By: #### CBC, 2276- 4, 2731-8, 2132-9, 2284-8, 39101-0, FEPR, 30646-1, LIVR, 03708-9, RENAL, 3084-1 #### [facility] ([id number]) [address] [address], [address] [place], [place] [address]Tefczcnzqyl in HDL [Mass/Vol]42 mg/dLNormal>39ProNortheast Baptist HospitalComment on above:Result Comment: HDL <40 mg/dL - High Risk HDL > or = 40mg/dL- Desirable HDL >60 mg/dL - Negative Risk Performed By: #### RUY, 2276-4, 2731-8, 2132-9, 2284-8, 10883-1, FEPR, 71077-7, LIVR, 92349-9, RENAL, 3084-1 #### [facility] ([id number]) [address], [address] [place], [place] [address]Dldginoheie in LDL [Mass/Vol]52 mg/dLNormal<130ProNortheast Baptist HospitalComment on above:Result Comment: LDL <100 mg/dL - Desirable LDL >160 mg/dL - High Risk Performed By: #### RUY, 2276-4, 2731-8, 2132-9, 4-8, 92154-8, FEPR, 08915-3, LIVR, 45679-8, RENAL, 3084-1 #### [facility] ([id number]) [address], [address] [place], [place] [address]Aamlyncyjyk in VLDL [Mass/Vol]25 mg/dLNormal0-30ProNortheast Baptist HospitalComment on above:Performed By: #### RUY, 2276-4, 2731-8, 2132-9, 2284-8, 19844-4, FEPR, 15837-7, LIVR, 88897-3, RENAL, 3084-1 #### [facility] ([id number]) [address], [address] [place], [place] [address]PIWASZUPPJQ:HDL2.0Dfrzfh3.0-5.0ProNortheast Baptist HospitalComment on above:Performed By: ###Lance REDMOND, 2276-4, 2731-8, 2131-9, 2283-8, 51610-7, FEPR, 96202-6, LIVR, 61379-6, RENAL, 3084-1 #### [facility] ([id number]) [address], [address] [place], [place] [address]Frqkdkafdyhd [Mass/Vol]125 mg/iRFjigpy11-571EbhLdfrdu [facility] HospitalComment on above:Performed By: #### CBC, 6-4, 2730-8, 9, 2283-8, 03107-2, FEPR, 06859-7, LIVR, 29192-2, RENAL, 3084-1 #### [facility] ([id number]) [address], [facility] [address] [place], [place] [address]UQEFPQEWCjn 05-64-5346Kcfhowfkb [Mass/Vol]2.0 mg/dLNormal1.8-2.6 [facility] Medical CenterComment on above:Performed By: #### UA #### [facility] ([id number]) [address], [address] [place], [place] [address]XZQPYIO CREAT RATIOon 62-94-7894SGVMKW URINE SPFJIGG824 mg/LHigh <120ProNortheast Baptist HospitalComment on above:Performed By: #### UA #### [facility] ([id number]) [address], [address] [place], [place] [address]R/PRO/RESERVOIR ENGINEERING MANAGER RATIO CALC0.09Normal<0.2PSalem City Hospital Comment on above:Result Comment: Nephrotic Syndrome is associated with ratios >3.5Performed By: #### UA #### [facility] ([id number]) [address], [address] [place], [place] [address]LVFNW CREATININE,RTY451.09 mg/dLNoalGerman Hospital Comment on above:Performed By: #### UA #### [facility] ([id number]) [address], [address] [place] [address]Cvnjdsgneb.intact [Mass/Vol]on 20-37-3210HAD JIYNGJ15 pg/mL Zabpzn63-41MmkYqmcmqGerman HospitalComment on above:Performed By: #### CBC, 2276-4, 2731-8, 2132-9, 2284-8, 44296-9, FEPR, 50555-5, LIVR, 21275-8, RENAL, 3084-1 #### [facility] ([id number]) [address], [address] [place] [address]JMDYO PANELon 81-37-8996Ublmj gap [Moles/Vol]13 mmol/LNormal5-15 German HospitalComment on above:Performed By: #### UA #### [facility] ([id number]) [address] [address] [place] [address]Mvbxkyb [Mass/Vol]9.2 mg/dLNormal8.5-10.5PSalem City HospitalComment on above:Performed By: #### UA #### [facility] ([id number]) [address], [address] [place] [address]Fniqhipx [Moles/Vol]107 mmol/GDppgfk15-398BcqBcznzpNortheast Baptist HospitalComment on above:Performed By: #### UA #### [facility] ([id number]) [address] [address] [place] [address]FX3 [Moles/Vol]21 mmol/UUhc03-83NhjQtdrtdSalem City Hospital Comment on above:Performed By: #### UA #### [facility] ([id number]) [address] [address] [place] [address]Nrhobheckr [Mass/Vol]2.23 mg/dLHigh0.60-1.30German HospitalComment on above:Result Comment: METHOD TRACEABLE TO IDMS STANDARD Performed By: #### UA #### [facility] ([id number]) [address], [address] [place], [place] [address]YXE/1.73 sq M.predicted among non-blacks MDRD (S/P/Bld) [Vol rate/Area]31 mL/min/{1.73_m2}Low>59ProNortheast Baptist HospitalComment on above: Result Comment: Reported eGFR is based on the CKD-EPI 2020 equation that does not use a race coefficient.Performed By: #### UA #### [facility] ([id number]) [address], [address] [place], [place] [address]Laqpxbo [Mass/Vol]96 mg/wPIhoonq55-10AelAxychoGerman Hospital Comment on above:Performed By: #### UA #### [facility] ([id number]) [address] [address] [place], [place] [address]Nlmncuwpm [Mass/Vol]4.7 mg/dLNormal2.4-4.9ProNortheast Baptist HospitalComment on above:Performed By: #### UA #### [facility] ([id number]) [address] [address] [place], [place] [address]Ngjxjvxpd [Moles/Vol]4.4 mmol/LNormal3.5-5.0ProNortheast Baptist HospitalComment on above:Performed By: #### UA #### [facility] ([id number]) [address] [address] [place], [place] [address]Qhctxv [Moles/Vol]141 mmol/XTpcyub454-931SrbFtaalw [facility] HospitalComment on above:Performed By: #### UA #### [facility] ([id number]) [address] [address] [place], [place] [address]Gamk nitrogen [Mass/Vol]28 mg/dLHigh5-27ProNortheast Baptist HospitalComment on above:Performed By: #### UA #### [facility] ([id number]) [address] [address] [place], [place] [address]OMKI ACIDon 47-92-9071Kzoes [Mass/Vol]6.2 mg/dLNormal2.6-7.2 German HospitalComment on above:Performed By: #### UA #### [facility] ([id number]) [address], [address] [place], [place] [address]ODKXHQRQEVqp 66-36-0036Hkxfpxsuv Ql (U)NegativeNormalNEG German HospitalComment on above:Performed By: #### UA #### [facility] ([id number]) [address], [address] [place], [place] [address]SVFEC/HGBNegativeNormalNEGGerman HospitalComment on above:Performed By: #### UA #### [facility] ([id number]) [address], [address] [place], [place] [address]Vhwgh (U)YELLOWNormalYELLOWGerman HospitalComment on above:Performed By: #### UA #### [facility] ([id number]) [address], [address] [place], [place] [address]Snpoiqc Ql (U)NegativeNormalNEGGerman HospitalComment on above:Performed By: #### UA #### [facility] ([id number]) [address], [address] [place], [place] [address]Nkopixt casts LM Ql (Urine sed)4 /lpfHigh0-2PSalem City HospitalComment on above:Performed By: #### UA #### [facility] ([id number]) [address], [address] [place], [place] [address]Tulielt Ql (U)NegativeNormalNEGGerman HospitalComment on above:Performed By: #### UA #### [facility] ([id number]) [address], [address] [place], [place] [address]Vjjgecyyp esterase Test strip Ql (U)NegativeNormalNEGProNortheast Baptist HospitalComment on above:Performed By: #### UA #### [facility] ([id number]) [address] [place] [address], [address] [place], [place] [address]LVJBIBSCXWIFHWkzxadsfZBDIPgzXeqizt [place] HospitalComment on above:Performed By: #### UA #### [facility] ([id number]) [address] [place] [address], [address] [place], [place] [address]Zvvhaql Ql (U)NegativeNormalNEGGerman HospitalComment on above:Performed By: #### UA #### [facility] ([id number]) [address] [place] [address], [address] [place], [place] [address]xE (U)6.0 [pH]Normal5.0-8.5PSalem City HospitalComment on above:Performed By: #### UA #### [facility] ([id number]) [address] [place] [address], [address] [place], [place] [address]Uvikoaf Ql (U)TraceAbnormalNEGGerman HospitalComment on above:Performed By: #### UA #### [facility] ([id number]) [address] [place] [address], [address] [place], [place] [address]D.B.CELLS0 /hpfNormal0-5PSalem City HospitalComment on above:Performed By: #### UA #### [facility] ([id number]) [address], [address] [place], [place] [address]Dclpuirp gravity (U) [Rel density]1.955Fdqlzh6.003-1.035 [facility] Marinhealth Medical CenterComment on above:Performed By: #### UA #### [facility] ([id number]) [address] [place], [place] [address]GHBSRKMSLIZNKTKsxqpoBWYHOSdnZwchnq [facility] HospitalComment on above:Performed By: #### UA #### [facility] ([id number]) [address], [address] [place], [place] [address]Ighchobsdshx (U) [Mass/Vol]mg/dLNormal<1.1PSalem City HospitalComment on above:Performed By: #### UA #### [facility] ([id number]) [address], [address] [place], [place] [address]G.B.CELLS2 /hpfNormal0-5PSalem City HospitalComment on above:Performed By: #### UA #### [facility] ([id number]) [address], [address] [place], [place] [address]ARWPOIY B12on 14-12-3023Nabzpsmln (Vitamin B12) [Mass/Vol]462 pg/vMMeesff484-453TmoFgfbicSalem City HospitalComment on above:Performed By: #### CBC, 2276-4, 1-8, 9, 2283-8, 20117-5, FEPR, 89369-0, LIVR, 69050-8, RENAL, 3084-1 #### [facility] ([id number]) [address], [address] [place], [place] [address]Quoyrav D+Metabolites [Mass/Vol]on 04-05-6838DJNTDSV D 25 HYD TOT72.1 ng/dOIrglfh39-679HheQzujiu [facility]ont HospitalComment on above:Result Comment: Vitamin D status 25 [place] Vitamin D Deficiency <20 ng/mL Insufficiency 20-29 ng/mL Sufficiency 30-100 ng/mL Toxicity >100 ng/mL NOTE: A pediatric reference range has not been established by the green chain marker of this kit. The [place] [employer] recommends a Vitamin D level of = or >20ng/mL in infants and children.Performed By: #### CBC, 2276-4, 2731-8, 2131-9, 2283-8, 83029-3, FEPR, 99382-7, LIVR, 22761-4, RENAL, 3084-1 #### [facility] ([id number]) [address] [facility] [address], [address] [place], [place] [address]Vidmuh Visiton 38-45-3356Wtnden-up [id number] CastilloKel 1955 M Date Provider Department Center 10/13/2024 271-SARAH TOLLIVER Family History Problem Relation Age of Onset Diabetes Mother Family Status - Relation Status Age at Mother Level of Service:[address] [place] OFFICE/OUTPATIENT ESTABLISHED MOD MDM 30 [id number] Visit (NEIND4) SAMIR CASTILLO ([id number]) 1955 M Date Time Provider Department 10/12/24 11:30 AM EUN [place] During your visit today, we recorded the following information about you: Pulse Blood pressure Weight Height 58/minute 136/61 77.1 kg 1.651 m Santiago Jay MA 10/12/2024 2:47 PM Signed 10/12/2024 [...] Apnea Probability Score: 70 (Recommend sleep study) Eun Trent DO 10/12/2024 2:47 PM Signed [facility] General Neurology Follow up/ Established patient visit Individuals who were included in, or assisted with the encounter were: Samir Castillo Eun Black DO Chief Complaint/Issues: Samir Castillo is a 69 year old male seen in the [facility] for General Neurology for: Memory [...] list. Holding a coffee (more content not included)...NormalSt. [facility] CNOVon 84-27-8051KBTAChdqqy Visit (NPTU10) SAMIR CASTILLO ([id number]) 1955 M Date Time Provider Department 09/08/24 8:00 AM MISTY POLO NPTU10 During your visit today, we recorded the following information about you: Misty Polo, PhD 09/10/2024 4:35 PM Signed [facility] Department of Neurology Section of Neuropsychology Neuropsychological Evaluation Report CONFIDENTIAL Patient: Samir Castillo Date of : 1955 Referred by: Eun Black MD (Neurology) Education: 10 Handedness: R Language(s): Pakistani Date of Evaluation: 09/08/2024 Mr. Castillo is [...] no Problems with mother's /delivery: no Early QUALITY ASSOCIATE infection, high fever, significant childhood illness: no SCHOOL HISTORY: Years of education completed: 10; left school early because he did not like it. 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 One day will feel worried and next day will feel okay. Has been this way for a long time. Mental health treatment: He endorsed lo (more content not included)...Normal [facility] ClevelandLipid 1996 panelon 68-42-8234Hzffxiabiap [Mass/Vol]142 mg/iLXra630 - 200 mg/dLNOMS HealthcareCholesterol in HDL [Mass/Vol]43 mg/dL39 - PINF mg/dLNOMS HealthcareComment on above: HDL <40 mg/dL - High Risk HDL > or = 40mg/dL- Desirable HDL >60 mg/dL - Negative Risk Cholesterol in HDL/Total Cholesterol [Mass ratio]3.3 {ratio}1.0 - 5.0[facility] HealthcareComment on above:PERFORMED AT [address],[place], [place] [address]Uoomzgbszdm in LDL [Mass/Vol]75 mg/dLNINF - 130 mg/dL [facility] HealthcareComment on above: LDL <100 mg/dL - Desirable LDL >160 mg/dL - High Risk Cholesterol in VLDL [Mass/Vol]24 mg/dL0 - 30 mg/dLALTA VIEW HOSPITAL HealthcareInterpretation and review of laboratory resultsAbnormalSamaritan HospitalTriglyceride [Mass/Vol] 118 mg/dL27 - 150 mg/dLNODepartment of Veterans Affairs Tomah Veterans' Affairs Medical CenterCholesterol [Mass/Vol]142 mg/zOGes625-336DbwRfjxpqNortheast Baptist HospitalComment on above:Performed By: #### 47995-0 #### [facility] ([id number]) [address] [place] [address], [address] [place], [place] [address]Gigxezxnjyf in HDL [Mass/Vol]43 mg/dLNormal>39German HospitalComment on above:Result Comment: HDL <40 mg/dL - High Risk HDL > or = 40mg/dL- Desirable HDL >60 mg/dL - Negative Risk Performed By: #### 77069-8 #### [facility] ([id number]) [address] [place] [address], [address] [place], [place] [address]Dxtuykgxkjz in LDL [Mass/Vol]75 mg/dLNormal<130ProNortheast Baptist HospitalComment on above:Result Comment: LDL <100 mg/dL - Desirable LDL >160 mg/dL - High Risk Performed By: #### 13930-7 #### [facility] ([id number]) [address], [address] [place], [place] [address]Qoepqmnhgty in VLDL [Mass/Vol]24 mg/dLNormal0-30ProNortheast Baptist HospitalComment on above:Performed By: #### 51505-8 #### [facility] ([id number]) [address], [address] [place], [place] [address]PRXKSQCQKRA:HDL3.5Gaxppl6.0-5.0ProNortheast Baptist HospitalComment on above:Performed By: #### 61346-6 #### [facility] ([id number]) [address], [address] [place], [place] [address]Xalkpupfbovs [Mass/Vol]118 mg/kCGegwlw96-077DeyCpfptu Fremont HospitalComment on above:Performed By: #### 08938-3 #### [facility] ([id number]) [address], [address] [place], [place] [address]CZ BRAIN WO IVCONon 70-64-9591LS BRAIN WO IVCON* * *Final Report* * * DATE OF [...] NO CT EVIDENCE OF ACUTE INTRACRANIAL PROCESS. Manager Manufacturing: [facility] Transcribe Date/Time: May 12 2024 3:59P Dictated by : FIDEL DAVIDSON MD This examination was interpreted and the report reviewed and electronically signed by: FIDEL DAVIDSON MD on May 12 2024 4:07PM [facility] [id number]_IDCSIACNNCommunity Memorial HospitalCT Head WO contraston 05-12-2024 IMPRESSION: NO CT EVIDENCE OF ACUTE INTRACRANIAL PROCESS. Manager Manufacturing: [facility] Transcribe Date/Time: May 12 2024 3:59P Dictated by : FIDEL DAVIDSON MD This examination was interpreted and the report reviewed and electronically signed by: FIDEL DAVIDSON MD on May 12 2024 4:07PM [facility]* * *Final Report* * * DATE OF [...] are unremarkable. Localizer images: No additional findings. [facility] RADIOLOGYProvider, [facility] [place] - 05/12/2024 * * *Final Report* * [...] NO CT EVIDENCE OF ACUTE INTRACRANIAL PROCESS. Manager Manufacturing: [employer] Transcribe Date/Time: May 12 2024 3:59P Dictated by : FIDEL DAVIDSON MD This examination was interpreted and the report reviewed and electronically signed by: FIDEL DAVIDSON MD on May 12 2024 4:07PM EST [facility] CenterRadiology Study observation (narrative)[facility] Head WO contrastOrdered By: [facility] Provider on 12-32-0604Qajvohoiy ClinicCNOVon 51-17-9746TJGWOsnwws Visit (NEIND4) SAMIR CASTILLO ([id number]) 1955 M Date Time Provider Department 05/04/24 9:30 AM EUN TRENT NEIND4 During your visit today, we recorded the following information about you: Pulse Blood pressure Weight Height 57/minute 138/63 80.5 kg 1.676 m Eun Trent DO 05/04/2024 10:17 PM Signed [facility] General Neurology Follow up/ Established patient visit Individuals who were included in, or assisted with the encounter were: Samir Castillo Eun Black DO Chief Complaint/Issues: Samir Castillo is a 69 year old male seen in the [facility] for General Neurology for: Memory [...] over medications. 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 MOCA December 2021 [...] Assessment AND Plan 05/04/2024 - General Neurology, Eun Black, DO ASSESSMENT Mr. Castillo is a [...] mouth twice daily. isos (more content not included)...[facility] SHOULD[facility] LEFT W/Oon 91-48-4629[place]jk[place] [address] Magnetic Resonance Report Signed Patient: KEL CASTILLO Jr. MR#: [id number] : 1955 Acct:[id number] Age/Sex: 68 / M ADM Date: 09/05/23 Loc: MRI Attending Dr: Bimal Mcgowan M.D. Ordering Physician: Bimal Mcgowan M.D. Date of Service: 09/05/23 Procedure(s): MR shoulder LT wo con Accession Number(s): [id number] cc: Bimal Mcgowan M.D.; Shaikh Krish Grimes [place] [id number] Patient Name: KEL CASTILLO MRN: [id number] date: 1955 Sex: M Assigned Patient Location: MRI Current Patient Location: MRI Accession/Order Number: [id number] Exam Date: 09/05/2023 14:55 Report Date: 09/05/2023 16:15 At the request of: BIMAL MCGOWAN Procedure: MR shoulder LT wo con MR [...] fracture is noted. Electronically authenticated by: JOSEPH RIVERO Date: 09/05/2023 16:15 Dictated By: Joseph Rivero M.D. Signed By: 09/05/238 DD/ TD/TT: Manager Manufacturing:TBHRadiology, Radiologist, - 09/05/2023 [place] [address] Magnetic Resonance Report Signed Patient: KEL CASTILLO Jr. MR#: [id number] : 1955 Acct:[id number] Age/Sex: 68 / M ADM Date: 09/05/23 Loc: MRI Attending Dr: Bimal Mcgowan M.D. Ordering Physician: Bimal Mcgowan M.D. Date of Service: 09/05/23 Procedure(s): MR shoulder LT wo con Accession Number(s): [id number] cc: Bimal Mcgowan M.D.; Shaikh Krish Grimes [place] [address] Patient Name: KEL CASTILLO MRN: [id number] date: 1955 Sex: M Assigned Patient Location: MRI Current Patient Location: MRI Accession/Order Number: [id number] Exam Date: 09/05/2023 14:55 Report Date: 09/05/2023 16:15 At the request of: BIMAL MCGOWAN Procedure: MR shoulder LT wo con MR [...] fracture is noted. Electronically authenticated by: JOSEPH RIVERO Date: 09/05/2023 16:15 Dictated By: Joseph Rivero M.D. Signed By: 09/05/23 1618 DD/ 14 TD/TT: Manager Manufacturing: [facility] HealthcareRadiology Study observation (narrative)[facility] SHOULDER LEFT W/OOrdered By: Radiologist Radiology on 90-94-4361OBNA [employer] Work Phone: XR Shoulder - left 2 Viewson 55-39-9297Jrn [place] [address] XRay Report Signed Patient: KEL CASTILLO Jr. MR#: [id number] : 1955 Acct:[id number] Age/Sex: 68 / M ADM Date: 08/26/23 Loc: RAD Attending Dr: Bimal Mcgowan M.D. Ordering Physician: Bimal Mcgowan M.D. Date of Service: 08/26/23 Procedure(s): XR shoulder LT min 2V Accession Number(s): [id number] cc: Bimal Mcgowan M.D.; Shaikh Krish Grimes [address] [address] Patient Name: KEL CASTILLO MRN: [facility]:[id number] date: 1955 Sex: M Assigned Patient Location: [facility] Current Patient Location: [facility] Accession/Order Number: [id number] Exam Date: 08/26/2023 11:50 Report Date: 08/26/2023 15:14 At the request of: BIMAL MCGOWAN Procedure: XR shoulder LT min 2V 3 views of the left shoulder INDICATION: Pain COMPARISON: 07/29/2023 XR/XR shoulder LT min 2V IMPRESSION: Mild degenerative changes of the left shoulder without evidence for acute fracture or dislocation. Soft tissues are grossly unremarkable. Electronically authenticated by: JOSÉ MIGUEL GONZALEZ Date: 08/26/2023 15:14 Dictated By: José Miguel Gonzalez M.D. Signed By: 08/26/23 1517 DD/ 13 TD/TT: Manager Manufacturing:REJIHRadiology, Radiologist, MD - 10/16/2023 The [place] [id number] XRay Report Signed Patient: KEL CASTILLO Jr. MR#: [id number] : 1955 Acct:[id number] Age/Sex: 68 / M ADM Date: 08/26/23 Loc: RAD Attending Dr: Bimal Mcgowan M.D. Ordering Physician: Bimal Mcgowan M.D. Date of Service: 08/26/23 Procedure(s): XR shoulder LT min 2V Accession Number(s): [id number] cc: Bimal Mcgowan M.D.; Shaikh Krish Grimes [place] [id number] Patient Name: KEL CASTILLO MRN: [id number] date: 1955 Sex: M Assigned Patient Location: RAD Current Patient Location: [facility] Accession/Order Number: [id number] Exam Date: 08/26/2023 11:50 Report Date: 08/26/2023 15:14 At the request of: BIMAL MCGOWAN Procedure: XR shoulder LT min 2V 3 views of the left shoulder INDICATION: Pain COMPARISON: 07/29/2023 XR/XR shoulder LT min 2V IMPRESSION: Mild degenerative changes of the left shoulder without evidence for acute fracture or dislocation. Soft tissues are grossly unremarkable. Electronically authenticated by: JOSÉ MIGUEL GONZALEZ Date: 08/26/2023 15:14 Dictated By: José Miguel Gonzalez M.D. Signed By: 08/26/23 1517 DD/ 13 TD/TT: Manager Manufacturing: [facility] CAREHolden HealthcareRadiology Study observation (narrative)[facility] HealthcareXR Shoulder - left 2 ViewsOrdered By: Radiologist Radiology on 76-82-2109[facility] Work Phone: XR Shoulder - left 2 View[address] 14-38-3807[place]wl[place] [address] XRay Report Signed Patient: KEL CASTILLO Jr. MR#: [id number] : 1955 Acct:[id number] Age/Sex: 68 / M ADM Date: 07/29/23 Loc: RAD Attending Dr: Bimal Mcgowan M.D. Ordering Physician: Bimal Mcgowan M.D. Date of Service: 07/29/23 Procedure(s): XR shoulder LT min 2V Accession Number(s): [id number] cc: Bimal Mcgowan M.D.; Shaikh Krish Grimes The [address] [address] Patient Name: KEL CASTILLO MRN: [facility]:[id number] date: 1955 Sex: M Assigned Patient Location: RAD Current Patient Location: RAD Accession/Order Number: [id number] Exam Date: 07/29/2023 11:20 Report Date: 07/29/2023 16:01 At the request of: BIMAL MCGOWAN Procedure: XR shoulder LT min 2V EXAM: XR shoulder LT min 2V HISTORY: Closed Nondisplaced Fracture Of Proximal Left Humerus S42.29. COMPARISON: Left shoulder study dated 07/10/2023. TECHNIQUE: 3 views of the left shoulder were obtained. FINDINGS: No convincing evidence of acute fracture or dislocation. Glenohumeral relationship appears grossly unremarkable. Wxrc-kp-jtpgadhh degenerative changes about the acromioclavicular joint. Soft tissues are grossly within normal limits. Postoperative sternotomy wires and clips are present. XR/XR shoulder LT min 2V IMPRESSION: Left shoulder study fails to demonstrate definite acute fracture or dislocation. Follow-up as needed. Electronically authenticated by: KEL JOSHUA Date: 07/29/2023 16:01 Dictated By: Kel Joshua M.D. Signed By: 07/29/23 1604 DD/ 1601 TD/TT: Manager Manufacturing:TBHRadiology, Radiologist, MD - 07/29/2023 [place] [address] XRay Report Signed Patient: KEL CASTILLO Jr. MR#: [id number] : 1955 Acct:[id number] Age/Sex: 68 / M ADM Date: 07/29/23 Loc: RAD Attending Dr: Bimal Mcgowan M.D. Ordering Physician: Bimal Mcgowan M.D. Date of Service: 07/29/23 Procedure(s): XR shoulder LT min 2V Accession Number(s): [id number] cc: Bimal Mcgowan M.D.; Shaikh Krish Grimes [place] [address] Patient Name: KEL CASTILLO MRN: [facility]:[id number] date: 1955 Sex: M Assigned Patient Location: [facility] Current Patient Location: RAD Accession/Order Number: [id number] Exam Date: 07/29/2023 11:20 Report Date: 07/29/2023 16:01 At the request of: BIMAL MCGOWAN Procedure: XR shoulder LT min 2V EXAM: XR shoulder LT min 2V HISTORY: Closed Nondisplaced Fracture Of Proximal Left Humerus S42.29. COMPARISON: Left shoulder study dated 07/10/2023. TECHNIQUE: 3 views of the left shoulder were obtained. FINDINGS: No convincing evidence of acute fracture or dislocation. Glenohumeral relationship appears grossly unremarkable. Hfxg-wn-kajdgepl degenerative changes about the acromioclavicular joint. Soft tissues are grossly within normal limits. Postoperative sternotomy wires and clips are present. XR/XR shoulder LT min 2V IMPRESSION: Left shoulder study fails to demonstrate definite acute fracture or dislocation. Follow-up as needed. Electronically authenticated by: KEL JOSHUA Date: 07/29/2023 16:01 Dictated By: Kel Joshua M.D. Signed By: 07/29/23 1604 DD/ 1601 TD/TT: Manager Manufacturing: NOMHolden HealthcareRadiology Study observation (narrative)NOMS HealthcareXR Shoulder - left 2 ViewsOrdered By: Radiologist Radiology on 15-76-2464QOJI [facility] Work Phone: ct abdomen pelvis wo conon 02-06-0698TQ abdomen pelvis wo [facility] [place] [address] CT Scan Report Signed Patient: Kel Castillo Jr MR#: [id number] : 1955 Acct:[id number] Age/Sex: 67 / M ADM Date: 04/09/23 Loc: ER Room: Type: [facility] ER Attending Dr: Copies to: Lucy [...] Damien Negrete M.D.04/09/2023 2:28 PM Dictation Location: [place] [address] Transcribed By: [facility] 04/09/23 1428 Dictated By: Damien Negrete DO 04/09/23 1422 Signed By: 04/09/23 1428[facility] CenterComplete Blood Count Auto Diffon 74-73-6765Hhmdxubbc (Bld) [#/Vol]0.1 10*3/uLNormal0.0-0.2FFayette County Memorial HospitalComment on above:Result Comment: PERFORMED BY: [place] [address] PATHOLOGIST EMBEDDED SOFTWARE DEVELOPMENT ENGINEER TROY SIGALA M.D.Performed By: #### CBC #### [place] [address] USABasophils/100 WBC (Bld)1.0 %Normal.Uc Medical CenterComment on above:Performed By: #### CBC #### [place] [address] USAEosinophils (Bld) [#/Vol]0.2 10*3/uLNormal0.0-0.45 [facility] Medical CenterComment on above:Performed By: #### CBC #### [place] [address] USAEosinophils/100 WBC (Bld)2.8 %Normal.[facility]c Medical CenterComment on above:Performed By: #### CBC #### [place] [address] USAErythrocyte distribution width (RBC) [Ratio]14.5 %Normal 12.0-14.8Uc Medical CenterComment on above:Performed By: #### CBC #### [place] [address] USAHematocrit (Bld) [Volume fraction]39.2 %Anoylr24.8-50.0 [facility] Medical CenterComment on above:Performed By: #### CBC #### [place] [address] USAHemoglobin (Bld) [Mass/Vol]13.0 g/sYLpjceo13.0-17.0 [facility] Medical CenterComment on above:Performed By: #### CBC #### [place] [address] USALymphocytes (Bld) [#/Vol]1.1 10*3/uLNormal1.00-4.8 [facility] Medical CenterComment on above:Performed By: #### CBC #### [place] [address] USALymphocytes/100 WBC (Bld)14.1 %Normal.[facility]c Medical CenterComment on above:Performed By: #### CBC #### [facility] [address] [place], [place] [address]H (RBC) [Entitic mass]30.4 urXtajim47.5-35.2FFayette County Memorial HospitalComment on above:Performed By: #### CBC #### [address]V (RBC) [Entitic vol]91.5 nDXynzne30.5-101Uc Medical CenterComment on above:Performed By: #### CBC #### [place] [address] USAMean Corpuscular HGB Conc33.2 g/uZPbxbhc48.5-35.6FFayette County Memorial HospitalComment on above:Performed By: #### CBC #### [place] [address] USAMonocytes (Bld) [#/Vol]0.5 10*3/uLNormal0.0-0.8[facility] Medical CenterComment on above:Performed By: #### CBC #### [place] [address] USAMonocytes/100 WBC (Bld)16.97 %Normal0.00-20.00Uc Medical CenterComment on above:Performed By: #### CBC #### [place] [address] USAMonocytes/100 WBC (Bld)6.6 %Normal.Uc Medical CenterComment on above:Performed By: #### CBC #### [place] [address] USANeutrophils (Bld) [#/Vol]5.9 10*3/uLNormal1.8-7.7FFayette County Memorial HospitalComment on above:Performed By: #### CBC #### [place] [address] USANeutrophils/100 WBC (Bld)75.5 %Normal.[facility]c Medical CenterComment on above:Performed By: #### CBC #### [place] [address] USANRBC%0.0 /100{WBC}Normal0-0.5FFayette County Memorial HospitalComment on above:Performed By: #### CBC #### [place] [address] USAPlatelet mean volume (Bld) [Entitic vol]7.5 fLNormal 6.6-10.1FFayette County Memorial HospitalComment on above:Performed By: #### CBC #### [place] [address] USAPlatelets (Bld) [#/Vol]180 10*3/bGWhcdzc116-088QiqoetoqgUc Medical CenterComment on above:Performed By: #### CBC #### [place] [address] USARBC (Bld) [#/Vol]4.29 10*6/uLNormal3.90-5.60Uc Medical CenterComment on above:Performed By: #### CBC #### [place] [address] USAWBC (Bld) [#/Vol]7.8 10*3/uLNormal4.1-10.5FFayette County Memorial HospitalComment on above:Performed By: #### CBC #### [place] [address] USAComprehensive Metabolic Panelon 92-02-3258Osjboyp [Mass/Vol]4.3 g/dLNormal3.5-5.7FFayette County Memorial HospitalComment on above:Performed By: #### PTT, LIPASE, PT, CMP #### [place] [address] USAAlbumin/Globulin [Mass ratio]1.2 {ratio}NormalUc Medical CenterComment on above:Performed By: #### PTT, LIPASE, PT, CMP #### [facility] [address] [place] [address] USAALP [Catalytic activity/Vol]105 U/OGrpg41-546XsinxutarUc Medical CenterComment on above:Performed By: #### PTT, LIPASE, PT, CMP #### [facility] [address] [place] [address] USAALT [Catalytic activity/Vol]61 U/LHigh7-52Uc Medical CenterComment on above:Performed By: #### PTT, LIPASE, PT, CMP #### [facility] [address] [place] [address] USAAnion gap [Moles/Vol]12.5 mmol/LNormal6.0-15.0Uc Medical CenterCombronson battle creek hospital on above:Performed By: #### PTT, LIPASE, PT, CMP #### [facility] [address] [place] [address] USAAST [Catalytic activity/Vol]62 U/RMfkp90-35UmnjtotfwUc Medical CenterComment on above:Performed By: #### PTT, LIPASE, PT, CMP #### [facility] [address] [place] [id number] USABilirubin [Mass/Vol]0.8 mg/dLNormal0.3-1.0[facility] Medical CenterCombronson battle creek hospital on above:Performed By: #### PTT, LIPASE, PT, CMP #### [facility] [address] [place] [address] USACalcium [Mass/Vol]9.0 mg/dLNormal8.6-10.3FFayette County Memorial HospitalComment on above:Performed By: #### PTT, LIPASE, PT, CMP #### [facility] [address] [place] [id number] USAChloride [Moles/Vol]107 mmol/TCxbfet30-858KlhyocdgiUc Medical CenterComment on above:Performed By: #### PTT, LIPASE, PT, CMP #### [facility] [address] [place] [address] USACO2 [Moles/Vol]25.1 mmol/QBltrtr07.0-31.0Uc Medical CenterComment on above:Performed By: #### PTT, LIPASE, PT, CMP #### [facility] [address] [place] [address] USACreatinine [Mass/Vol]1.76 mg/dLHigh0.70-1.30Uc Medical CenterComment on above:Performed By: #### PTT, LIPASE, PT, CMP #### [facility] [address] [place] [address] USACreatinine Clr Calc Ymxnnjnc09.17NoWVUMedicine Harrison Community HospitalComment on above:Performed By: #### PTT, LIPASE, PT, CMP #### [facility] [address] [place] [address] USAGFR/1.73 sq M.predicted MDRD (S/P/Bld) [Vol rate/Area] 41.342 mL/min/{1.73_m2}[facility] Medical CenterComment on above: Performed By: #### PTT, LIPASE, PT, CMP #### [facility] [address] [place] [address] USAGlobulin (S) [Mass/Vol]3.7 g/dLNoWVUMedicine Harrison Community HospitalComment on above:Performed By: #### PTT, LIPASE, PT, CMP #### [facility] [address] [place] [address] USAGlucose [Mass/Vol]89 mg/sIPhuzpl15-642XsnpzxzcwUc Medical CenterComment on above:Result Comment: Random Glucose Reference Range is dependent on time and content of last meal. Glucose of more than 200 mg/dL in a nonstressed, ambulatory subject supports the diagnosis of Diabetes Mellitus. ADA recommended reference rangePerformed By: #### PTT, LIPASE, PT, CMP #### [facility] [address] [place] [address] USAPotassium [Moles/Vol]4.6 mmol/LNormal3.5-5.1FFayette County Memorial HospitalComment on above:Performed By: #### PTT, LIPASE, PT, CMP #### [facility] [address] [place] [address] USAProtein [Mass/Vol]8.0 g/dLNormal6.4-8.9Uc Medical CenterComment on above:Performed By: #### PTT, LIPASE, PT, CMP #### [facility] [address] [place] [address] USASodium [Moles/Vol]140 mmol/TDuuzsk463-408SvxtgnkktUc Medical CenterComment on above:Performed By: #### PTT, LIPASE, PT, CMP #### [facility] [address] [place] [address] USAUrea nitrogen [Mass/Vol]25 mg/dLNormal7-25Uc Medical CenterComment on above:Performed By: #### PTT, LIPASE, PT, CMP #### [facility] [address] [place] [address] USADipstick and Microscopicon 65-99-5602Pmfkkfunih (U)Cloudy Critically abnormalCleCommunity Regional Medical CenterComment on above:Order Comment: Name Collection Type:: Clean-Voided MidstreamPerformed By: #### ADDONUAPLUS #### [facility] [address] [place] [address] USABacteria,UrineNone SeenNormalNone SeenUc Medical CenterComment on above:Order Comment: Name Collection Type:: Clean- Voided MidstreamPerformed By: #### ADDONUAPLUS #### [facility] [address] [place] [address] USABilirubin,UrineNegativeNormalNegativeUc Medical CenterComment on above:Order Comment: Name Collection Type:: Clean- Voided MidstreamPerformed By: #### ADDONUAPLUS #### [facility] [address] [place], [place] [address] USAColor (U)YellowNormalYellowUc Medical CenterComment on above:Order Comment: Name Collection Type:: Clean-Voided MidstreamPerformed By: #### ADDONUAPLUS #### [facility] [address] [place] [address] USAGlucose Ql (U)NormalNormalNormalUc Medical CenterComment on above:Order Comment: Name Collection Type:: Clean-Voided MidstreamPerformed By: #### ADDONUAPLUS #### [place] [address] USAHyaline Casts,UrineNone SeenNormal0-8Uc Medical CenterComment on above:Order Comment: Name Collection Type:: Clean- Voided MidstreamResult Comment: PERFORMED BY: [place] [address] PATHOLOGIST EMBEDDED SOFTWARE DEVELOPMENT ENGINEER TROY SIGALA M.D.Performed By: #### ADDONUAPLUS #### [place] [address] USAKetones Ql (U)NegativeNormalNegAdena Regional Medical CenterComment on above:Order Comment: Name Collection Type:: Clean- Voided MidstreamPerformed By: #### ADDONUAPLUS #### [place] [address] USALeukocyte esterase Test strip Ql (U)NegativeNormalNegative Uc Medical CenterComment on above:Order Comment: Name Collection Type:: Clean-Voided MidstreamPerformed By: #### ADDONUAPLUS #### [place] [address] USANitrite,UrineNegativeNormmeNegAdena Regional Medical CenterComment on above:Order Comment: Name Collection Type:: Clean- Voided MidstreamPerformed By: #### ADDONUAPLUS #### [place] [id number] USAOccult Blood,UrineNegativeNormalNegAdena Regional Medical CenterComment on above:Order Comment: Name Collection Type:: Clean- Voided MidstreamResult Comment: PERFORMED BY: [place] [address] PATHOLOGIST [employer] SOFTWARE DEVELOPMENT ENGINEER TROY SIGALA M.D.Performed By: #### ADDONUAPLUS #### [facility] [address] [place] [address] USApH (U)5.5 [pH]Normal5.0-9.0Uc Medical CenterComment on above:Order Comment: Name Collection Type:: Clean-Voided MidstreamPerformed By: #### ADDONUAPLUS #### [place] [address] USAProtein,UrineNegativeNormalNegativeUc Medical CenterComment on above:Order Comment: Name Collection Type:: Clean- Voided MidstreamPerformed By: #### ADDONUAPLUS #### [place] [address] USARBC LM.HPF (Urine sed) [#/Area]0 /[HPF]Normal0-[address] [place], [place] [address]Comment on above:Order Comment: Name Collection Type:: Clean-Voided MidstreamPerformed By: #### ADDONUAPLUS #### [place] [address] USASpecificy [place],Urine1.320Nqdwar2.001-1.030Uc Medical CenterComment on above:Order Comment: Name Collection Type:: Clean-Voided MidstreamPerformed By: #### ADDONUAPLUS #### [place] [address] USASquamous Epithelial Cell,UrineNone SeenNormal[address] [place], [place] [address]Comment on above:Order Comment: Name Collection Type:: Clean-Voided MidstreamPerformed By: #### ADDONUAPLUS #### [place] [address] USAUrobilinogen,UrineNormalNormalNormalUc Medical CenterComment on above:Order Comment: Name Collection Type:: Clean- Voided MidstreamPerformed By: #### ADDONUAPLUS #### [place] [address] USAWBC LM.HPF (Urine sed) [#/Area]0 /[HPF]Normal0-4FFayette County Memorial HospitalComment on above:Order Comment: Name Collection Type:: Clean-Voided MidstreamPerformed By: #### ADDONUAPLUS #### [address] [address] USALipaseon [id number] [Catalytic activity/Vol]92.0 U/L High11.0-82.0Uc Medical CenterComment on above:Result Comment: PERFORMED BY: [place] [address] PATHOLOGIST EMB[employer] SOFTWARE DEVELOPMENT ENGINEER TROY SIGALA M.D.Performed By: #### PTT, LIPASE, PT, CMP #### [place] [id number] USAPartial Thromboplastin Timeon [id number] Coag (Bld) [Time]30.9 xNnhfhc19.1-36.5FFayette County Memorial HospitalComment on above: Result Comment: PERFORMED BY: [place] [address] PATHOLOGIST E[employer] SOFTWARE DEVELOPMENT ENGINEER TROY SIGALA M.D.Performed By: #### PTT, LIPASE, PT, CMP #### [place] [id number] USAProthrombin Time INRon [id number] Coag (PPP) [Relative time]1.0 {INR}NormalUc Medical CenterComment on above:Result Comment: INR Therapeutic Range A) Pre- and [...] patients with mechanical heart valves: 3 - 4.5Performed By: #### PTT, LIPASE, PT, CMP #### [place] [id number] USAPT Coag (PPP) [Time]11.9 sNormal9.0-12.9Uc Medical CenterComment on above:Performed By: #### PTT, LIPASE, PT, CMP #### [place] [id number] USACBC AUTO DIFFon [id number] #0.1 103/ulNormal0.0-0.1The [facility] Medical CenterComment on above:Performed By: #### CBC #### [facility] [address] [place] [address] Dr. Hattie NewsomeBasophils/100 WBC (Bld)0.8 %Normal0.2-2.0[facility] Comment on above:Performed By: #### CBC #### [facility] [address] [place] [address] Dr. Hattie Duarte #0.3 103/ulNormal0.0-0.7The [facility] CenterComment on above: Performed By: #### CBC #### [facility] [address] [place] [address] Dr. Hattie Dongosinophils/100 WBC (Bld)3.2 %Normal0.9-7.0[facility] Comment on above:Performed By: #### CBC #### [facility] [address] [place] [address] Dr. Hattie Funezthrocyte distribution width (RBC) [Ratio]14.3 %Tcnmok92.0-15.0 [facility] HospitalComment on above:Performed By: #### CBC #### [facility] [address] [place] [address] Dr. Hattie NewsomeHematocrit (Bld) [Volume fraction]39.7 %Critically low42.0-54.0 The [facility] CenterComment on above:Performed By: #### CBC #### [facility] [address] [place] [address] Dr. Hattie NewsomeHemoglobin (Bld) [Mass/Vol]13.0 g/dLCritically low14.0-18.0The [facility] CenterComment on above:Performed By: #### CBC #### [facility] [address] [place] [address] Dr. Hattie Max #0.06 10e3/ulCritically high0.00-0.03The [facility] Comment on above:Performed By: #### CBC #### [facility] [address] [address] [address] Hattie Max %0.8 %Critically high0.0-0.5The [facility] CenterComment on above:Performed By: #### CBC #### [facility] [address] [place] [address] Dr. Hattie Priest #1.3 103/ulNormal1.2-3.8The [facility] CenterComment on above:Performed By: #### CBC #### [facility] [address] [place] [address] Dr. Hattie Daleyhocytes/100 WBC (Bld)16.8 %Critically low20.5-60.0The [facility] CenterComment on above:Performed By: #### CBC #### [facility] [address] [place] [address] Dr. Hattie BorreroUAL DIFF REQNONormalThe [facility] CenterComment on above: Performed By: #### CBC #### [facility] [address] [place] [address] Dr. Hattie Jessica (RBC) [Entitic mass]30.5 dmDpieak40.9-34.0The [facility] CenterComment on above:Performed By: #### CBC #### [facility] [address] [place] [address] Dr. Hattie Jessica (RBC) [Mass/Vol]32.7 g/cKIlpsdl84.9-35.2The [facility] CenterComment on above:Performed By: #### CBC #### [facility] [address] [place] [address] Dr. Hattie Jessica (RBC) [Entitic vol]93.2 uUAwbqzv65.0-94.0The [facility] CenterComment on above:Performed By: #### CBC #### [facility] [address] [place] [address] Dr. Hattie Jeff #0.5 103/ulNormal0.3-0.8The [facility] CenterComment on above:Performed By: #### CBC #### [facility] [address] [address] [address] Hattie Learyocytes/100 WBC (Bld)7.0 %Normal1.7-12.0The [facility] Comment on above:Performed By: #### CBC #### [facility] [address] [address] [address] Hattie SalgadoUT #5.5 103/ulNormal1.4-6.5The [facility] CenterComment on above:Performed By: #### CBC #### [facility] [address] [place] [address] Dr. Hattie Salgadoutrophils/100 WBC (Bld)71.4 %Cfglzz21.0-75.0The [facility] CenterComment on above:Performed By: #### CBC #### [facility] [address] [place] [address] Dr. Hattie NewsomePlatelet mean volume (Bld) [Entitic vol]9.4 fLCritically low 9.5-13.5The [facility] CenterComment on above:Performed By: #### CBC #### [facility] [address] [place] [address] Dr. Hattie NewsomePLT169 103/bkUpoaio001-849Gru [facility] CenterComment on above: Performed By: #### CBC #### [facility] [address] [place] [address] Dr. Hattie NewsomeRBC4.26 106/ulCritically low4.70-6.10The [facility] CenterComment on above:Performed By: #### CBC #### [facility] [address] [place] [address] Dr. Hattie NewsomeWBC7.7 103/ulNormal4.0-11.0The [facility] CenterComment on above: Performed By: #### CBC #### [facility] [address] [place] [address] Dr. Hattie NewsomeLIPID PROFILEon 89-75-6717OITC-HDL RATIO NORMSEE BELOWOhioHealth Arthur G.H. Bing, MD, Cancer CenterComment on above:Result Comment: 3.3 - 4.4 LOW RISK 4.4 - 7.1 AVERAGE RISK 7.1 - 11.0 MODERATE RISK >11.0 HIGH RISKPerformed By: #### LIPID #### [facility] [address] [place] [address] Dr. Hattie NewsomeCholesterol [Mass/Vol]131 mg/dLNormal<=200[facility] Comment on above:Performed By: #### LIPID #### [facility] [address] [place] [address] Dr. Hattie NewsomeCholesterol in HDL [Mass/Vol]40 mg/bWGwxorj33-50DxfRiverside Methodist HospitalComment on above:Performed By: #### LIPID #### [facility] [address] [place] [address] Dr. Hattie NewsomeCholesterol in LDL [Mass/Vol]64.6 mg/dLOhioHealth Arthur G.H. Bing, MD, Cancer CenterComment on above:Performed By: #### LIPID #### [facility] [address] [place] [address] Dr. Hattie Dodgeesterthai.total/Cholesterol in HDL [Mass ratio]3.3 {ratio} NormalRiverside Methodist HospitalComment on above:Performed By: #### LIPID #### [facility] [address] [place] [address] Dr. Hattie Hemphill NORMAL> or = 60 mg/dl - LOW CARDIOVASCULAR RISK <40 mg/dl - HIGH CARDIOVASCULAR RISKOhioHealth Arthur G.H. Bing, MD, Cancer CenterComment on above:Performed By: #### LIPID #### [facility] [address] [place] [address] Dr. Hattie NewsomeLDL CALC NORMALSEE BELOWOhioHealth Arthur G.H. Bing, MD, Cancer CenterComment on above:Result Comment: <100 mg/dl OPTIMAL 100 - 129 mg/dl NEAR OR ABOVE OPTIMAL 130 - 159 mg/dl BORDERLINE HIGH 160 - 189 mg/dl HIGH >190 mg/dl VERY HIGH Performed By: #### LIPID #### [facility] [address] [place] [address] Dr. Hattie NewsomeTriglyceride [Mass/Vol]132 mg/dLNormal<=150[facility] Comment on above:Performed By: #### LIPID #### [facility] [address] [place] [address] Dr. Hattie NewsomeVLDL CALC26.4 mg/dLNoMercy HospitalComment on above: Performed By: #### LIPID #### [facility] [address] [place] [address] Dr. Hattie NewsomePARATHYROID HORMONE- RELATED PEPTIDEon [id number] (PTH- Related Peptide)<2.0NoMercy HospitalComment on above:Result Comment: This test was developed and its performance characteristics determined by [employer]. It has not been cleared or approved [...] results are clinically discordant, please contact the laboratory.Performed By: #### PTHP #### [facility] [address] [place] [address] Dr. Hattie NewsomeCBC AUTO DIFFon [id number] #0.1 103/ulNormal0.0-0.1[facility] HospitalComment on above:Performed By: #### URIC, CMP, MG #### [facility] [address] [place] [address] Dr. Hattie NewsomeBasophils/100 WBC (Bld)0.9 %Normal0.2-2.0[facility] Comment on above:Performed By: #### URIC, CMP, MG #### [facility] [address] [place] [address] Dr. Hattie Duarte #0.2 103/ulNormal0.0-0.7The [facility] CenterComment on above: Performed By: #### URIC, CMP, MG #### [facility] [address] [place] [address] Dr. Hattie Dongosinophils/100 WBC (Bld)3.4 %Normal0.9-7.0The [facility] Comment on above:Performed By: #### URIC, CMP, MG #### [facility] [address] [place] [address] Dr. Hattie Dongrythrocyte distribution width (RBC) [Ratio]14.5 %Ycsjop12.0-15.0 [facility] HospitalComment on above:Performed By: #### URIC, CMP, MG #### [facility] [address] [place] [address] Dr. Hattie NewsomeHematocrit (Bld) [Volume fraction]40.1 %Critically low42.0-54.0 The [facility] CenterComment on above:Performed By: #### URIC, CMP, MG #### [facility] [address] [place] [address] Dr. Hattie NewsomeHemoglobin (Bld) [Mass/Vol]13.6 g/dLCritically low14.0-18.0The [facility] CenterComment on above:Performed By: #### URIC, CMP, MG #### [facility] [address] [place] [address] Dr. Hattie Max #0.04 10e3/ulCritically high0.00-0.03[facility] Comment on above:Performed By: #### URIC, CMP, MG #### [facility] [address] [place] [address] Dr. Hattie Max %0.6 %Critically high0.0-0.5The [facility] CenterComment on above:Performed By: #### URIC, CMP, MG #### [facility] [address] [place] [address] Dr. Hattie Priest #0.9 103/ulCritically low1.2-3.8The [facility] Comment on above:Performed By: #### URIC, CMP, MG #### [facility] [address] [place] [address] Dr. Hattie Mendiolamphocytes/100 WBC (Bld)13.1 %Critically low20.5-60.0[facility] HospitalComment on above:Performed By: #### URIC, CMP, MG #### [facility] [address] [address] [address] Hattie Chanel DIFF REQNONormalThe [facility] CenterComment on above: Performed By: #### URIC, CMP, MG #### [facility] [address] [place] [address] Dr. Hattie Jessica (RBC) [Entitic mass]30.9 msQocasy91.9-34.0The [facility] CenterComment on above:Performed By: #### URIC, CMP, MG #### [facility] [address] [place] [address] Dr. Hattie Jessica (RBC) [Mass/Vol]33.9 g/cCFgrdgb75.9-35.2The [facility] CenterComment on above:Performed By: #### URIC, CMP, MG #### [facility] [address] [place] [address] Dr. Hattie Jessica (RBC) [Entitic vol]91.1 yTQiqilp62.0-94.0The [facility] CenterComment on above:Performed By: #### URIC, CMP, MG #### [facility] [address] [place] [address] Dr. Hattie Jeff #0.3 103/ulNormal0.3-0.8The [facility] CenterComment on above:Performed By: #### URIC, CMP, MG #### [facility] [address] [place] [address] Dr. Hattie Learyocytes/100 WBC (Bld)5.1 %Normal1.7-12.0The [facility] Comment on above:Performed By: #### URIC, CMP, MG #### [facility] [address] [place] [address] Dr. Hattie Choe #5.0 103/ulNormal1.4-6.5The [facility] CenterComment on above:Performed By: #### URIC, CMP, MG #### [facility] [address] [place] [address] Dr. Hattie Salgadoutrophils/100 WBC (Bld)76.9 %Critically high43.0-75.0The [facility] CenterComment on above:Performed By: #### URIC, CMP, MG #### [facility] [address] [place] [address] Dr. Hattie Walker mean volume (Bld) [Entitic vol]9.0 fLCritically low 9.5-13.5The [facility] CenterComment on above:Performed By: #### URIC, CMP, MG #### [facility] [address] [place] [address] Dr. Hattie NewsomePLT160 103/veSgifbr198-789Cfq [facility] CenterComment on above: Performed By: #### URIC, CMP, MG #### [facility] [address] [place] [address] Dr. Hattie NewsomeRBC4.40 106/ulCritically low4.70-6.10The [facility] on above:Performed By: #### URIC, CMP, MG #### [facility] [address] [place] [address] Dr. Hattie NewsomeWBC6.5 103/ulNormal4.0-11.0The [facility] on above: Performed By: #### URIC, CMP, MG #### [facility] [address] [place] [address] Dr. Hattie NewsomeMAGNESIUMon 98-97-0355Vkadfogxn [Mass/Vol]1.8 mg/dLNormal1.8-2.4 The [facility] CenterCombronson battle [facility] on above:Performed By: #### URIC, CMP, MG #### [facility] [address] [place] [address] Dr. Hattie NewsomePROF 14(COMP METB)on 86-35-2060Qvsavdl [Mass/Vol]3.9 g/dLNormal 3.4-5.0The [facility] CenterComment on above:Performed By: #### URIC, CMP, MG #### [facility] [address] [place] [address] Dr. Hattie NewsomeAlbumin/Globulin [Mass ratio]1.0 {ratio}NormalThe Cara HospitalComment on above:Performed By: #### URIC, CMP, MG #### [facility] [address] [address] [address] Hattie Govea [Catalytic activity/Vol]136 U/LCritically gvsr55-197Rpr [facility] CenterComment on above:Performed By: #### URIC, CMP, MG #### [facility] [address] [place] [address] Dr. Hattie Mejia [Catalytic activity/Vol]122 U/LCritically ogcm73-39Wis [facility] CenterComment on above:Performed By: #### URIC, CMP, MG #### [facility] [address] [place] [address] Dr. Hattie Lugoon gap [Moles/Vol]12.4 mmol/LNormalThe [facility] Comment on above:Performed By: #### URIC, CMP, MG #### [facility] [address] [place] [address] Dr. Hattie He [Catalytic activity/Vol]72 U/LCritically jemc60-24Bbm [facility] on above:Performed By: #### URIC, CMP, MG #### [facility] [address] [place] [address] Dr. Hattie NewsomeBilirubin [Mass/Vol]0.5 mg/dLNormal0.2-1.0[facility] Comment on above:Performed By: #### URIC, CMP, MG #### [facility] [address] [place] [address] Dr. Hattie NewsomeCalcium [Mass/Vol]9.1 mg/dLNormal8.5-10.1[facility] Comment on above:Performed By: #### URIC, CMP, MG #### [facility] [address] [place] [address] Dr. Hattie NewsomeChloride [Moles/Vol]106 mmol/FZdjnrr79-628BwtRiverside Methodist Hospital Comment on above:Performed By: #### URIC, CMP, MG #### [facility] [address] [place] [address] Dr. Yilan ChangCO2 [Moles/Vol]25.9 mmol/MTshdzx43.0-32.0The [facility] Comment on above:Performed By: #### URIC, CMP, MG #### [facility] [address] [place] [address] Dr. Hattie NewsomeCreatinine [Mass/Vol]1.54 mg/dLCritically high0.70-1.30The [facility] CenterComment on above:Performed By: #### URIC, CMP, MG #### [facility] [address] [place] [address] Dr. Kuhn ChangEGFR-AF PNOWEQPC31 mL/min/1.82b8Yfgugbelwg low>=60The [facility] CenterComment on above:Performed By: #### URIC, CMP, MG #### [facility] [address] [place] [address] Dr. Hattie DongGFR-NON AF AREWHCDV80 mL/min/1.25g6Mwvsfpmpya low>=60The [facility] CenterComment on above:Performed By: #### URIC, CMP, MG #### [facility] [address] [place] [address] Dr. Hattie NewsomeGlobulin (S) [Mass/Vol]4.0 g/dLNormalThe [facility] CenterComment on above:Performed By: #### URIC, CMP, MG #### [facility] [address] [place] [address] Dr. Hattie NewsomeGlucose [Mass/Vol]104 mg/rAAjjufa72-377UrzRiverside Methodist Hospital Comment on above:Performed By: #### URIC, CMP, MG #### [facility] [address] [place] [address] Dr. Hattie NewsomePotassium [Moles/Vol]4.3 mmol/LNormal3.5-5.1The [facility] Comment on above:Performed By: #### URIC, CMP, MG #### [facility] [address] [place] [address] Dr. Hattie NewsomeProtein [Mass/Vol]7.9 g/dLNormal6.4-8.2The [facility] Comment on above:Performed By: #### URIC, CMP, MG #### [facility] [address] [address] [address] Hattie Galeanaum [Moles/Vol]140 mmol/UQdrktz581-509Rft [facility] Comment on above:Performed By: #### URIC, CMP, MG #### [facility] [address] [address] [address] Hattie Murguia nitrogen [Mass/Vol]14.0 mg/dLNormal7.0-18.0The [facility] CenterComment on above:Performed By: #### URIC, CMP, MG #### [facility] [address] [address] [address] Hattie Murguia nitrogen/Creatinine [Mass ratio]9.1 mg/mgNormalThe [facility] CenterComment on above:Performed By: #### URIC, CMP, MG #### [facility] [address] [place] [address] Dr. Hattie DONATOon 58-12-8382Udxjbxldr Ql (U)NegativeNormalNEGATIVERiverside Methodist HospitalComment on above:Performed By: #### UA #### [facility] [address] [place] [address] Dr. Hattie Shah (U)CLEARNormalCLEARThe [facility] CenterComment on above: Performed By: #### UA #### [facility] [address] [place] [address] Dr. Hattie Valera (U)YELLOWNormalYELLOWRiverside Methodist HospitalComment on above: Performed By: #### UA #### [facility] [address] [place] [address] Dr. Hattie NewsomeGlucose Ql (U)NegativeNormalNEGATIVERiverside Methodist HospitalComment on above:Performed By: #### UA #### [facility] [address] [place] [address] Dr. Hattie NewsomeHemoglobin Ql (U)NegativeNormalNEGCherrington Hospital Comment on above:Performed By: #### UA #### [facility] [address] [place] [address] Dr. Hattie Goodwin Ql (U)NegativeNormalNEGATIVEThe [facility] CenterComment on above:Performed By: #### UA #### [facility] Laboratory [address] [place] [address] Dr. Hattie NewsomeLEUKOCYTESNegativeNormalNEGATIVEThe [facility] Medical CenterComment on above:Performed By: #### UA #### [facility] Laboratory [address] [place] [address] Dr. Hattie Kincaidtrprem Ql (U)NegativeNormalNEGATIVEThe [facility] CenterComment on above:Performed By: #### UA #### [facility] Laboratory [address] [place] [address] Dr. Hattie NewsomepH (U)5.5 [pH]Normal5-9The [facility] CenterComment on above: Performed By: #### UA #### [facility] Laboratory [address] [place] [address] Dr. Hattie NewsomeSPEC GRAVITY>=1.502Rdfbivvf3.005-<=1.025The [facility] Comment on above:Performed By: #### UA #### [facility] Laboratory [address] [place] [address] Dr. Hattie Prado PROTEINNegativeNormalNEGATIVE/ TRACEThe [facility] Comment on above:Performed By: #### UA #### [facility] Laboratory [address] [place] [address] Dr. Hattie Phillipbilinogen Qn (U)1.0 {Xavier'U}/dLNormal0.2 - 1.0The [facility] CenterComment on above:Performed By: #### UA #### [facility] Laboratory [address] [place] [address] Dr. Hattie NewsomeURIC ACID SERUMon 36-58-3870Xqbaj [Mass/Vol]6.8 mg/dLNormal 3.5-7.2The [facility] CenterComment on above:Performed By: #### URIC, CMP, MG #### [facility] Laboratory [address] [place] [address] Dr. Hattie Lauren T PROTEIN CREAT RATIOon 48-61-7922Hanwbbj (U) [Mass/Vol] 27.5 mg/dLCritically high<=12.0[facility] HospitalComment on above:Performed By: #### URTPCR #### [facility] Laboratory [address] [place] [address] Dr. Hattie Waldrop PROT CREAT RAT0.15NormalRiverside Methodist HospitalComment on above: Performed By: #### URTPCR #### [facility] Laboratory [address] [place] [address] Dr. Hattie Lauren TWFDF903.29 mg/xIHlepny15.00-300.00[facility] Comment on above:Performed By: #### URTPCR #### [facility] Laboratory [address] [place] [address] Dr. Hattie NewsomeVITAMIN D 25 OHon 63-47-4516ZER D 25-OH81.5 ng/mLNormalRiverside Methodist HospitalComment on above:Performed By: #### VITAD #### [facility] Laboratory [address] [place] [address] Dr. Hattie Beaulieu D RANGESSEE BELOWOhioHealth Arthur G.H. Bing, MD, Cancer CenterComment on above: Result Comment: <20 ng/mL Vit D deficient 20 - <30 ng/mL Vit D insufficient 30 - 100 ng/mL Vit D sufficient >100 ng/mL Potential ToxicityPerformed By: #### VITAD #### [facility] Laboratory [address] [place] [address] Dr. Hattie DongCHOCARDIJamie M/2D COMPLETEon 87-55-6158KNGMIFWSFD M/2D COMPLETE Patient: KEL CASTILLO Exam Date: 02/21/2022 : 1955 Gender:M Ordering : DR SARAH TOLLIVER M.D. Admission #: [id number] Family : Order #: [id number] CLICK HERE TO VIEW EXAM ECHOCARDIOGRAM REPORT [...] by: Tio Yepez M.D. on 02/21/2022 at 16:31[facility], MD, Cancer CenterNo Panel Informationon 66-24-9304Dgpabavck ClinicBASIC METABOLIC PANELon 22-50-3354Dolfars [Mass/Vol]9.2 mg/dLNormal8.6-10.3The [facility] CenterComment on above:Order Comment: No: Do not add to previous draw Performed By: #### 16068, 89793 #### [facility] [address] [place] [address], USAChloride [Moles/Vol]108 mmol/YIlxq35-212Nnk [facility] Medical CenterComment on above:Order Comment: No: Do not add to previous drawPerformed By: #### 04944, 57444 #### [facility] [address] [place] [address], USACO2 [Moles/Vol]26 mmol/PKiwewk22-98Sto [facility] Medical CenterComment on above:Order Comment: No: Do not add to previous draw Performed By: #### 62900, 06911 #### [facility] [address] [place] [address], USACreatinine [Mass/Vol]1.64 mg/dLHigh0.70-1.30The [facility] CenterComment on above:Order Comment: No: Do not add to previous drawPerformed By: #### 80281, 25192 #### [facility] [address] [place] [address], USAGFR/1.73 sq M predicted among blacks MDRD (S/P/Bld) [Vol rate/Area]51 ml/min/1.73sq mAbnormal>60The [facility] Comment on above:Order Comment: No: Do not add to previous drawPerformed By: #### 23117, 39400 #### [facility] [address] [place] [address], USAGFR/1.73 sq M predicted among non-blacks MDRD (S/P/Bld) [Vol rate/Area]42 ml/min/1.73sq mAbnormal>60The [facility] Medical CenterComment on above:Order Comment: No: Do not add to previous drawPerformed By: #### 81491, 60070 #### [facility] [address] [place] [address], USAGlucose [Mass/Vol]100 mg/aFEqbeeh69-334Mci [facility] Medical CenterComment on above:Order Comment: No: Do not add to previous drawPerformed By: #### 36206, 04989 #### [facility] [address] [place] [address], USAPotassium [Moles/Vol]4.5 mmol/LNormal3.5-5.1The [facility] Medical CenterComment on above:Order Comment: No: Do not add to previous drawPerformed By: #### 94254, 24308 #### [facility] [address] [address], USASodium [Moles/Vol]139 mmol/XPhxoyz615-917Nil [facility] CenterComment on above:Order Comment: No: Do not add to previous drawPerformed By: #### 05197, 45002 #### [facility] [address] [address], USAUrea nitrogen [Mass/Vol]15 mg/dLNormal7-25The [facility] CenterComment on above:Order Comment: No: Do not add to previous drawPerformed By: #### 66961, 19764 #### [facility] [address] [place] [address], USACBC W/DIFFon 21-53-8812ZRJ BASOPHILS0.1 10*3/uLNormal 0.0-0.2The [facility] Medical CenterComment on above:Order Comment: No: Do not add to previous drawPerformed By: #### 29970, 74606 #### [facility] [address] [place] [address], USAABS IMM GRANS0.1 10*3/uLNormal0.0-0.2The [facility] Medical CenterComment on above:Order Comment: No: Do not add to previous drawPerformed By: #### 99001, 85356 #### [facility] [address] [facility] [place] [address], USAABS NEUTROPHILS5.1 10*3/uLNormal1.6-7.6The [facility] Medical CenterComment on above:Order Comment: No: Do not add to previous drawPerformed By: #### 31600, 98648 #### [facility] [address] [facility] [place] [address], USABasophils/100 WBC (Bld)0.8 %Normal0.0-1.0The [facility] Medical CenterComment on above:Order Comment: No: Do not add to previous drawPerformed By: #### 69614, 68503 #### [facility] [address] [place] [address], USAEosinophils (Bld) [#/Vol]0.3 10*3/uLNormal0.0-0.5The [facility] CenterComment on above:Order Comment: No: Do not add to previous drawPerformed By: #### 36376, 36048 #### [facility] [address] [place] [address], USAEosinophils/100 WBC (Bld)3.9 %Normal0.0-6.0The [facility] Medical CenterComment on above:Order Comment: No: Do not add to previous drawPerformed By: #### 01533, 21119 #### [facility] [address] [place] [address], USAErythrocyte distribution width (RBC) [Ratio]14.3 %Normal 11.5-15.0The [facility] Medical CenterComment on above:Order Comment: No: Do not add to previous drawPerformed By: #### 04712, 86135 #### [facility] [address] [place] [address], USAHematocrit (Bld) [Volume fraction]39.0 %Pwxspn48.0-50.0The [facility] Medical CenterComment on above:Order Comment: No: Do not add to previous drawPerformed By: #### 39872, 83209 #### [facility] [address] [place] [address], USAHemoglobin (Bld) [Mass/Vol]12.3 g/dLLow13.0-17.0The [facility] CenterComment on above:Order Comment: No: Do not add to previous drawPerformed By: #### 71537, 04128 #### [facility] [address] [place] [address], USAIMMATURE GRANS0.8 %Normal0.0-1.0The [facility] Medical CenterComment on above:Order Comment: No: Do not add to previous draw Performed By: #### 29909, 37845 #### [facility] [address] [place] [address], USALymphocytes (Bld) [#/Vol]1.2 10*3/uLNormal1.2-4.0The [facility] Medical CenterComment on above:Order Comment: No: Do not add to previous drawPerformed By: #### 55504, 60664 #### [facility] [place] [address] [place] [id number], USALymphocytes/100 WBC (Bld)16.1 %Low20.0-45.0The [facility] Medical CenterComment on above:Order Comment: No: Do not add to previous drawPerformed By: #### 75378, 86051 #### [facility] [place] [address] [place] [address], [facility]H (RBC) [Entitic mass]29.9 aiVodnyl42.0-33.0The [facility] Medical CenterComment on above:Order Comment: No: Do not add to previous drawPerformed By: #### 15040, 11669 #### [facility] [address] [place] [address], [facility]HC (RBC) [Mass/Vol]31.5 g/dLLow32.0-35.0The [facility] Medical CenterComment on above:Order Comment: No: Do not add to previous drawPerformed By: #### 68294, 72504 #### [facility] [address] [place] [address], [facility]V (RBC) [Entitic vol]94.9 jTXxippo38.0-98.0The [facility] Medical CenterComment on above:Order Comment: No: Do not add to previous drawPerformed By: #### 42868, 13475 #### [facility] [address] [place] [address], USAMonocytes (Bld) [#/Vol]0.5 10*3/uLNormal0.1-1.0The [facility] CenterComment on above:Order Comment: No: Do not add to previous drawPerformed By: #### 03156, 72841 #### [facility] [address] [place] [address], USAMONOS6.3 %Normal5.0-12.0The [facility] Medical CenterComment on above:Order Comment: No: Do not add to previous drawPerformed By: #### 27415, 93511 #### [facility] [address] [place] [address], USANeutrophils/100 WBC (Bld)72.1 %High40.0-72.0The [facility] CenterComment on above:Order Comment: No: Do not add to previous drawPerformed By: #### 74796, 12892 #### [facility] [address] [place] [address], USANucleated RBC/100 WBC (Bld) [Ratio]0 %Normal0-0The [facility] Medical CenterComment on above:Order Comment: No: Do not add to previous drawPerformed By: #### 91540, 09077 #### [facility] [address] [place] [address], USAPLAT [id number] 10*3/pIUdieem609-463Hux [facility] CenterComment on above:Order Comment: No: Do not add to previous draw Performed By: #### 59351, 49766 #### [facility] [address] [place] [address], USARBC (Bld) [#/Vol]4.11 10*6/uLLow4.20-5.70The [facility] Medical CenterComment on above:Order Comment: No: Do not add to previous drawPerformed By: #### 36535, 44512 #### [facility] [address] [facility] [place] [address], USAWBC (Bld) [#/Vol]7.13 10*3/uLNormal4.00-10.60The [facility] Medical CenterComment on above:Order Comment: No: Do not add to previous drawPerformed By: #### 64699, 68634 #### [facility] [address] [place] [address], USAUS ABDOMEN LIMITEDon [id number] ABDOMEN LIMITEDUnCincinnati Children's Hospital Medical [facility] Department of Radiology [address] [place] [id number] Patient Name: KEL CASTILLO : 1955 Sex: M Age: Race: White Pt. Location: [id number] Patient Status: I Ordered Date: 10/08/2019 9:30:00 AM Completed Date: 10/08/2019 10:00 AM Requesting Provider: ODALYS CUETO Attending Provider: DUKE RANGEL Report Copy To: Signs & Symptoms: Other History: See Comments Comments: Other, right groin to rule out hematoma and anuerysm Exam: US ABDOMEN LIMITED US ABDOMEN LIMITED 10/08/2019 10:00 AM CLINICAL [...] collection. Electronically signed: Brandy Wilson. Transcribed by: [id number], User Resident: BRANDY WILSON Electronically Signed by: BRANDY WILSON @ 10/08/2019 10:13 AM I personally read this/these film(s) with this [facility] HospitalComment on above:Order Comment: No: Do not add to previous drawBASIC METABOLIC PANELon [id number] [Mass/Vol]8.7 mg/dLNormal8.6-10.3 The [facility] Medical CenterComment on above:Order Comment: No: Do not add to previous drawPerformed By: #### 09907, 99551 #### [facility] [address] [place] [address], USAChloride [Moles/Vol]111 mmol/TUfwu14-436Zva [facility] CenterComment on above:Order Comment: No: Do not add to previous drawPerformed By: #### 28441, 30156 #### [facility] [address] [place] [address], USACO2 [Moles/Vol]28 mmol/HBetcql52-84Eev [facility] CenterComment on above:Order Comment: No: Do not add to previous draw Performed By: #### 46432, 59901 #### [facility] [address] [place] [address], USACreatinine [Mass/Vol]1.59 mg/dLHigh0.70-1.30The [facility] CenterComment on above:Order Comment: No: Do not add to previous drawPerformed By: #### 09565, 40713 #### [facility] [address] [place] [address], USAGFR/1.73 sq M predicted among blacks MDRD (S/P/Bld) [Vol rate/Area]53 ml/min/1.73sq mAbnormal>60The [facility] Comment on above:Order Comment: No: Do not add to previous drawPerformed By: #### 73427, 01031 #### [facility] [address] [place] [address], USAGFR/1.73 sq M predicted among non-blacks MDRD (S/P/Bld) [Vol rate/Area]44 ml/min/1.73sq mAbnormal>60The [facility] Medical CenterComment on above:Order Comment: No: Do not add to previous drawPerformed By: #### 34927, 68967 #### [facility] [address] [place] [address], USAGlucose [Mass/Vol]99 mg/iDLroddb60-909Jkh [facility] CenterComment on above:Order Comment: No: Do not add to previous drawPerformed By: #### 93019, 43084 #### [facility] [address] [place] [address], USAPotassium [Moles/Vol]4.2 mmol/LNormal3.5-5.1The [facility] CenterComment on above:Order Comment: No: Do not add to previous drawPerformed By: #### 24723, 67660 #### [facility] [address] [place] [address], USASodium [Moles/Vol]142 mmol/XYmqwsf742-672Mwf [facility] CenterComment on above:Order Comment: No: Do not add to previous drawPerformed By: #### 06559, 70632 #### [facility] [address] [place] [address], USAUrea nitrogen [Mass/Vol]16 mg/dLNormal7-25The [facility] CenterComment on above:Order Comment: No: Do not add to previous drawPerformed By: #### 71045, 51806 #### [facility] [address] [place] [address], [facility] CENTERCardiovascular Lab Reporton [id number] Lab ReportUnSumma Health [facility] Patient Name: Jose [facility] Kel MR #: [id number] Department of Physician: Sarah Tolliver Medicine MKristen Division of Service Date: 10/07/2019 Cardiology Birthdate: 1955 Adult Cardiovascular Room #: [id number] [facility] [address] [place], [place] [address] Cardiovascular Laboratory Report FINAL IMPRESSIONS: 1. Severe 3-vessel s[place]ovia coronary artery disease. 2. A 2/3 bypass [...] on the anatomic and fluoroscopic landmarks. A 6-Luxembourgish 11 cm sheath was inserted. Limited femoral [...] Tolliver M.D. Date Trans: 10/07/2019 02:55 P/mmo DN_JN:[id number] cc: Priyank Hendrickson M.D. [address] [place], [place] [id number] Nayana Bledsoe D. [address] [place] [address]LrzrjaOrzACMC Healthcare System GlenbeighMAGNESIUM BLOODon [id number] [Mass/Vol]2.1 mg/dLNormal1.9-2.7The [facility] CenterComment on above:Order Comment: No: Do not add to previous draw Performed By: #### 83473, 91584 #### [facility] [address] [place] [address], USABASIC METABOLIC PANELon [id number] [Mass/Vol]8.7 mg/dLNormal8.6-10.3The [facility] CenterComment on above:Order Comment: No: Do not add to previous drawPerformed By: #### 63762, 49043 #### [facility] [address] [place] [address], USAChloride [Moles/Vol]110 mmol/AUsqd16-014Fei [facility] CenterComment on above:Order Comment: No: Do not add to previous drawPerformed By: #### 59151, 08464 #### [facility] [address] [place] [address], USACO2 [Moles/Vol]26 mmol/SBryekl14-77Llw [facility] CenterComment on above:Order Comment: No: Do not add to previous draw Performed By: #### 24467, 80466 #### [facility] [address] [place] [address], USACreatinine [Mass/Vol]1.92 mg/dLHigh0.70-1.30The [facility] CenterComment on above:Order Comment: No: Do not add to previous drawPerformed By: #### 40566, 77027 #### [facility] [address] [place] [address], USAGFR/1.73 sq M predicted among blacks MDRD (S/P/Bld) [Vol rate/Area]43 ml/min/1.73sq mAbnormal>60The [facility] Comment on above:Order Comment: No: Do not add to previous drawPerformed By: #### 36741, 11772 #### [facility] [address] [place] [address], USAGFR/1.73 sq M predicted among non-blacks MDRD (S/P/Bld) [Vol rate/Area]35 ml/min/1.73sq mAbnormal>60The [facility] CenterComment on above:Order Comment: No: Do not add to previous drawPerformed By: #### 08569, 29440 #### [facility] [address] [place] [address], USAGlucose [Mass/Vol]96 mg/rNHuyeph14-323Gzc [facility] CenterComment on above:Order Comment: No: Do not add to previous drawPerformed By: #### 29541, 69544 #### [facility] [address] [place] [address], USAPotassium [Moles/Vol]4.4 mmol/LNormal3.5-5.1The [facility] CenterComment on above:Order Comment: No: Do not add to previous drawPerformed By: #### 94936, 87824 #### [facility] [address] [place] [address], USASodium [Moles/Vol]140 mmol/ZPrdkfi921-695Xrg [facility] CenterComment on above:Order Comment: No: Do not add to previous drawPerformed By: #### 03167, 83382 #### [facility] [address] [place] [address], USAUrea nitrogen [Mass/Vol]25 mg/dLNormal7-25The [facility] CenterComment on above:Order Comment: No: Do not add to previous drawPerformed By: #### 51223, 08245 #### [facility] [address] [place] [address], USACalcium [Mass/Vol]8.8 mg/dLNormal8.6-10.3The [facility] CenterComment on above:Order Comment: No: Do not add to previous drawPerformed By: #### 13568 #### [facility] [address] [place] [address], USAChloride [Moles/Vol]111 mmol/ZOgcx97-770Ifa [facility] CenterComment on above:Order Comment: No: Do not add to previous drawPerformed By: #### 37079 #### [facility] [address] [place] [address], USACO2 [Moles/Vol]25 mmol/AIwrjvm18-37Tva [facility] CenterComment on above:Order Comment: No: Do not add to previous draw Performed By: #### 78984 #### [facility] [address] [place] [address], USACreatinine [Mass/Vol]1.94 mg/dLHigh0.70-1.30The [facility] CenterComment on above:Order Comment: No: Do not add to previous drawPerformed By: #### 75947 #### [facility] [address] [place] [address], USAGFR/1.73 sq M predicted among blacks MDRD (S/P/Bld) [Vol rate/Area]42 ml/min/1.73sq mAbnormal>60The [facility] Comment on above:Order Comment: No: Do not add to previous drawPerformed By: #### 90782 #### [facility] [address] [place] [address], USAGFR/1.73 sq M predicted among non-blacks MDRD (S/P/Bld) [Vol rate/Area]35 ml/min/1.73sq mAbnormal>60The [facility] CenterComment on above:Order Comment: No: Do not add to previous drawPerformed By: #### 20768 #### [facility] [address] [address], USAGlucose [Mass/Vol]102 mg/pQFiuj46-803Lbh [facility] CenterComment on above:Order Comment: No: Do not add to previous drawPerformed By: #### 02278 #### [facility] [address] [address], USAPotassium [Moles/Vol]4.5 mmol/LNormal3.5-5.1The [facility] CenterComment on above:Order Comment: No: Do not add to previous drawPerformed By: #### 95851 #### [facility] [address] [address], USASodium [Moles/Vol]140 mmol/GRkdbcg945-040Ujz [facility] CenterComment on above:Order Comment: No: Do not add to previous drawPerformed By: #### 97295 #### [facility] [address] [address], USAUrea nitrogen [Mass/Vol]27 mg/dLHigh7-25The [facility] CenterComment on above:Order Comment: No: Do not add to previous drawPerformed By: #### 70718 #### [facility] [address] [place] [id number], [facility] CENTERCBC W/DIFFon [id number] BASOPHILS0.1 10*3/uLNormal 0.0-0.2The [facility] CenterComment on above:Order Comment: No: Do not add to previous drawPerformed By: #### 10223 #### [facility] [address] [place] [address], USAABS IMM GRANS0.1 10*3/uLNormal0.0-0.2The [facility] CenterComment on above:Order Comment: No: Do not add to previous drawPerformed By: #### 29088 #### [facility] [address] [place] [address], USAABS NEUTROPHILS4.2 10*3/uLNormal1.6-7.6The [facility] Medical CenterComment on above:Order Comment: No: Do not add to previous drawPerformed By: #### [id number] #### [facility] [place] [address] [place] [address], USABasophils/100 WBC (Bld)0.9 %Normal0.0-1.0The [facility] Medical CenterComment on above:Order Comment: No: Do not add to previous drawPerformed By: #### [id number] #### [facility] [place] [address] [place] [address], USAEosinophils (Bld) [#/Vol]0.3 10*3/uLNormal0.0-0.5The [facility] Medical CenterComment on above:Order Comment: No: Do not add to previous drawPerformed By: #### [id number] #### [facility] [place] [address] [place] [address], USAEosinophils/100 WBC (Bld)4.8 %Normal0.0-6.0The [facility] Medical CenterComment on above:Order Comment: No: Do not add to previous drawPerformed By: #### 91242 #### [facility] [place] [address] [place] [address], USAErythrocyte distribution width (RBC) [Ratio]14.3 %Normal 11.5-15.0The [facility] Medical CenterComment on above:Order Comment: No: Do not add to previous drawPerformed By: #### [id number] #### [facility] [place] [address] [place] [address], USAHematocrit (Bld) [Volume fraction]37.3 %Low39.0-50.0The [facility] Medical CenterComment on above:Order Comment: No: Do not add to previous drawPerformed By: #### 26098 #### [facility] [place] [address] [place] [address], USAHemoglobin (Bld) [Mass/Vol]11.7 g/dLLow13.0-17.0The [facility] Medical CenterComment on above:Order Comment: No: Do not add to previous drawPerformed By: #### 11516 #### [facility] [place] [address] [place] [address], USAIMMATURE GRANS1.3 %High0.0-1.0The [facility] Medical CenterComment on above:Order Comment: No: Do not add to previous draw Performed By: #### 93761 #### [facility] [place] [address] [place] [address], USALymphocytes (Bld) [#/Vol]1.5 10*3/uLNormal1.2-4.0The [facility] Medical CenterComment on above:Order Comment: No: Do not add to previous drawPerformed By: #### 02882 #### [facility] [place] [address] [place] [address], USALymphocytes/100 WBC (Bld)21.8 %Dopyln27.0-45.0The [facility] Medical CenterComment on above:Order Comment: No: Do not add to previous drawPerformed By: #### [id number] #### [facility] [place] [address] [place] [address], [facility]H (RBC) [Entitic mass]29.5 uxOxehsk15.0-33.0The [facility] Medical CenterComment on above:Order Comment: No: Do not add to previous drawPerformed By: #### [id number] #### [facility] [place] [address] [place] [address], [facility] CENTERMCHC (RBC) [Mass/Vol]31.4 g/dLLow32.0-35.0The [facility] Medical CenterComment on above:Order Comment: No: Do not add to previous drawPerformed By: #### [id number] #### [facility] [place] [address] [place] [address], [facility]ONV (RBC) [Entitic vol]94.0 eXKjetxn47.0-98.0The [facility] Medical CenterComment on above:Order Comment: No: Do not add to previous drawPerformed By: #### [id number] #### [facility] [place] [address] [place] [address], USAMonocytes (Bld) [#/Vol]0.6 10*3/uLNormal0.1-1.0The [facility] Medical CenterComment on above:Order Comment: No: Do not add to previous drawPerformed By: #### 25529 #### [facility] [place] [address] [place] [address], USAMONOS8.2 %Normal5.0-12.0The [facility] Medical CenterComment on above:Order Comment: No: Do not add to previous drawPerformed By: #### 80851 #### [facility] [place] [address] [place] [address], USANeutrophils/100 WBC (Bld)63.0 %Acieqh12.0-72.0The [facility] Medical CenterComment on above:Order Comment: No: Do not add to previous drawPerformed By: #### 47688 #### [facility] [place] [address] [place] [address], USANucleated RBC/100 WBC (Bld) [Ratio]0 %Normal0-0The [facility] Medical CenterComment on above:Order Comment: No: Do not add to previous drawPerformed By: #### 65064 #### [facility] [place] [address] [place] [address], USAPLAT BTI284 10*3/kXYvksck320-959Yzm [facility] Medical CenterComment on above:Order Comment: No: Do not add to previous draw Performed By: #### 98349 #### [facility] [place] [address] [place] [address], USARBC (Bld) [#/Vol]3.97 10*6/uLLow4.20-5.70The [facility] Medical CenterComment on above:Order Comment: No: Do not add to previous drawPerformed By: #### 84745 #### [facility] [place] [address] [place] [address], USAWBC (Bld) [#/Vol]6.69 10*3/uLNormal4.00-10.60The [facility] Medical CenterComment on above:Order Comment: No: Do not add to previous drawPerformed By: #### 18737 #### [facility] [place] [address] [place] [address], USABASIC METABOLIC PANELon 11-04-8332Gkorjio [Mass/Vol]9.7 mg/dLNormal8.6-10.3The [facility] Medical CenterComment on above:Order Comment: No: Do not add to previous drawPerformed By: #### 73885, 94319 #### [facility] [place] [address] [place] [address], USAChloride [Moles/Vol]105 mmol/YCgpola43-017Jqy [facility] CenterComment on above:Order Comment: No: Do not add to previous drawPerformed By: #### 33825, 05341 #### [facility] [place] [address] [place] [address], USACO2 [Moles/Vol]25 mmol/UChdwqo51-28Tad [facility] Medical CenterComment on above:Order Comment: No: Do not add to previous draw Performed By: #### 33798, 89497 #### [facility] [place] [address] [place] [address], USACreatinine [Mass/Vol]2.13 mg/dLHigh0.70-1.30The [facility] Medical CenterComment on above:Order Comment: No: Do not add to previous drawPerformed By: #### 16243, 24196 #### [facility] [place] [address] [place] [address], USAGFR/1.73 sq M predicted among blacks MDRD (S/P/Bld) [Vol rate/Area]38 ml/min/1.73sq mAbnormal>60The [facility] Comment on above:Order Comment: No: Do not add to previous drawPerformed By: #### 76859, 67975 #### [facility] [place] [address] [place] [address], USAGFR/1.73 sq M predicted among non-blacks MDRD (S/P/Bld) [Vol rate/Area]31 ml/min/1.73sq mAbnormal>60The [facility] Medical CenterComment on above:Order Comment: No: Do not add to previous drawPerformed By: #### 72438, 41049 #### [facility] [place] [address] [place] [address], USAGlucose [Mass/Vol]114 mg/lAZftw55-201Hxb [facility] CenterComment on above:Order Comment: No: Do not add to previous drawPerformed By: #### 66280, 53391 #### [facility] [place] [address] [place] [address], USAPotassium [Moles/Vol]4.7 mmol/LNormal3.5-5.1The [facility] Medical CenterComment on above:Order Comment: No: Do not add to previous drawPerformed By: #### 92345, 49457 #### [facility] [place] [address] [place] [address], USASodium [Moles/Vol]140 mmol/PXdoqlp449-193Ydj [facility] CenterComment on above:Order Comment: No: Do not add to previous drawPerformed By: #### 67676, 99046 #### [facility] [place] [address] [address], USAUrea nitrogen [Mass/Vol]32 mg/dLHigh7-25The [facility] Medical CenterComment on above:Order Comment: No: Do not add to previous drawPerformed By: #### 31012, 74999 #### [facility] [place] [address] [place] [address], [facility] CENTERCBC W/DIFFon 68-00-1194NPP BASOPHILS0.1 10*3/uLNormal 0.0-0.2The [facility] Medical CenterComment on above:Performed By: #### 43831 #### [facility] [place] [address] [address], USAABS IMM GRANS0.1 10*3/uLNormal0.0-0.2The [facility] Medical CenterComment on above:Performed By: #### 94149 #### [facility] [place] [address] [place] [address], USAABS NEUTROPHILS6.2 10*3/uLNormal1.6-7.6The [facility] Medical CenterComment on above:Performed By: #### 79120 #### [facility] [place] [address] [address], USABasophils/100 WBC (Bld)0.7 %Normal0.0-1.0The [facility] Medical CenterComment on above:Performed By: #### 74249 #### [facility] [place] [address] [place] [address], USAEosinophils (Bld) [#/Vol]0.3 10*3/uLNormal0.0-0.5The [facility] Medical CenterComment on above:Performed By: #### 50926 #### [facility] [place] [address] [address], USAEosinophils/100 WBC (Bld)4.0 %Normal0.0-6.0The [facility] Medical CenterComment on above:Performed By: #### 69605 #### [facility] [place] [address] [facility] [place] [address], USAErythrocyte distribution width (RBC) [Ratio]14.4 %Normal 11.5-15.0The [facility] Medical CenterComment on above:Performed By: #### 65774 #### [facility] [place] [address] [place] [address], USAHematocrit (Bld) [Volume fraction]39.3 %Soemje51.0-50.0The [facility] Medical CenterComment on above:Performed By: #### 97612 #### [facility] [place] [address] [facility] [place] [address], USAHemoglobin (Bld) [Mass/Vol]12.7 g/dLLow13.0-17.0The [facility] Medical CenterComment on above:Performed By: #### 87609 #### [facility] [place] [address] [place] [address], USAIMMATURE GRANS0.8 %Normal0.0-1.0The [facility] Medical CenterComment on above:Performed By: #### 93350 #### [facility] [place] [address] [facility] [place] [address], USALymphocytes (Bld) [#/Vol]1.4 10*3/uLNormal1.2-4.0The [facility] Medical CenterComment on above:Performed By: #### 62216 #### [facility] [place] [address] [place] [address], [facility] MEDICAL CENTERLymphocytes/100 WBC (Bld)16.6 %Low20.0-45.0The [facility] Medical CenterComment on above:Performed By: #### 92631 #### [facility] [place] [address] [place] [address], [facility]ONH (RBC) [Entitic mass]30.3 rnNogmgb07.0-33.0The [facility] Medical CenterComment on above:Performed By: #### 94671 #### [facility] [place] [address] [place] [address], [facility] CENTERMCHC (RBC) [Mass/Vol]32.3 g/oVQjxpgh77.0-35.0The [facility] Medical CenterComment on above:Performed By: #### 39461 #### [facility] [place] [address] [place] [id number], [facility] CENTERMCV (RBC) [Entitic vol]93.8 xDVerofb05.0-98.0The [facility] Medical CenterComment on above:Performed By: #### 76527 #### [facility] [place] [address] [place] [address], USAMonocytes (Bld) [#/Vol]0.4 10*3/uLNormal0.1-1.0The [facility] Medical CenterComment on above:Performed By: #### 43874 #### [facility] [place] [address] [place] [address], USAMONOS4.9 %Low5.0-12.0The [facility] Medical CenterComment on above:Performed By: #### 11164 #### [facility] [place] [address] [place] [address], USANeutrophils/100 WBC (Bld)73.0 %High40.0-72.0The [facility] Medical CenterComment on above:Performed By: #### 17398 #### [facility] [place] [address] [place] [address], USANucleated RBC/100 WBC (Bld) [Ratio]0 %Normal0-0The [facility] Medical CenterComment on above:Performed By: #### 58087 #### [facility] [place] [address] [place] [address], USAPLAT RXG833 10*3/aEQayqfd432-250Lgu [facility] Medical CenterComment on above:Performed By: #### 50076 #### [facility] [place] [address] [place] [address], USARBC (Bld) [#/Vol]4.19 10*6/uLLow4.20-5.70The [facility] Medical CenterComment on above:Performed By: #### 57508 #### [facility] [place] [address] [place] [address], USAWBC (Bld) [#/Vol]8.53 10*3/uLNormal4.00-10.60The [facility] Medical CenterComment on above:Performed By: #### 40309 #### [facility] [place] [address] [place] [address], USACREATININE URINE RANDOMon 37-15-5480Tsjbpkbhlb [Mass/Vol] 62.0 mg/dLNoACMC Healthcare System GlenbeighComment on above:Order Comment: No: Do not add to previous drawResult Comment: There are no established reference values for random urine specimensPerformed By: #### 48798, 96924, 08450 #### [facility] [place] [address] [place] [address], USALIVER BATTERYon 18-18-9923Txmhjjy [Mass/Vol]4.6 g/dLNormal 3.5-5.7The [facility] Medical CenterComment on above:Order Comment: Yes: Add to Previous draw if ablePerformed By: #### 30032, 38980 #### [facility] [place] [address] [place] [address], USAALKALINE IIKGUC63 IU/BGqmkvl63-330Cnl [facility] Medical CenterComment on above:Order Comment: Yes: Add to Previous draw if able Performed By: #### 99041, 58931 #### [facility] [place] [address] [place] [address], USAALT [Catalytic activity/Vol]26 U/LNormal7-52The [facility] Medical CenterComment on above:Order Comment: Yes: Add to Previous draw if ablePerformed By: #### 02756, 85026 #### [facility] [place] [address] [place] [address], USAAST [Catalytic activity/Vol]25 U/YRkxjhl96-07Iux [facility] CenterComment on above:Order Comment: Yes: Add to Previous draw if ablePerformed By: #### 78244, 22546 #### [facility] [place] [address] [place] [address], USABilirubin [Mass/Vol]0.5 mg/dLNormal0.3-1.0The [facility] Medical CenterComment on above:Order Comment: Yes: Add to Previous draw if ablePerformed By: #### 68855, 75534 #### [facility] [place] [address] [place] [address], USABilirubin.direct [Mass/Vol]0.1 mg/dLNormal0.0-0.2The [facility] Medical CenterComment on above:Order Comment: Yes: Add to Previous draw if ablePerformed By: #### 73019, 29294 #### [facility] [place] [address] [place] [address], USAProtein [Mass/Vol]7.6 g/dLNormal6.0-8.3The [facility] Medical CenterComment on above:Order Comment: Yes: Add to Previous draw if ablePerformed By: #### 95772, 21107 #### [facility] [place] [address] [place] [address], USASODIUM URINE RANDOMon 36-52-5699Egedli (U) [Moles/Vol]111 mmol/LNormalThe [facility] Medical CenterComment on above:Order Comment: No: Do not add to previous drawResult Comment: There are no established reference values for random urine specimensPerformed By: #### 55922, 06046, 55349 #### [facility] [place] [address] [place] [address], USAUA,MICROSCOPIC REQUIREDon 72-89-0057Frlrmwmusd (U)CLEAR NormalCLEARThe [facility] Medical CenterComment on above:Order Comment: No: Do not add to previous drawPerformed By: #### 46903 #### [facility] [place] [address] [place] [address], USABilirubin [Mass/Vol]NegativeNormalNEGATIVEThe [facility] Medical CenterComment on above:Order Comment: No: Do not add to previous drawPerformed By: #### 83021 #### [facility] [place] [address] [place] [address], USABLOODNegativeNormalNEGATIVEThe [facility] Medical CenterComment on above:Order Comment: No: Do not add to previous drawPerformed By: #### 37696 #### [facility] [place] [address] [place] [address], USAColor (U)YELLOWNormalYELLOWThe [facility] Medical CenterComment on above:Order Comment: No: Do not add to previous drawPerformed By: #### 72704 #### [facility] [place] [address] [place] [address], USAEPISOCCNormalFEW,OCC,NONE SEENThe [facility] Medical CenterComment on above:Order Comment: No: Do not add to previous draw Performed By: #### 09992 #### [facility] [place] [address] [place] [address], USAGlucose [Mass/Vol]NegativeNormalNEGATIVEThe [facility] Medical CenterComment on above:Order Comment: No: Do not add to previous drawPerformed By: #### 72875 #### [facility] [place] [address] [place] [address], USAHYALINE CASTS1 /LPFAbnormalNONE SEENThe [facility] Medical CenterComment on above:Order Comment: No: Do not add to previous drawPerformed By: #### 10048 #### [facility] [place] [address] [place] [address], USAKETONENegativeNormalNEGATIVEThe [facility] Medical CenterComment on above:Order Comment: No: Do not add to previous draw Performed By: #### 44261 #### [facility] [place] [address] [place] [address], USALEUK ESTERNegativeNormalNEGATIVEThe [facility] Medical CenterComment on above:Order Comment: No: Do not add to previous draw Performed By: #### 24359 #### [facility] [place] [address] [place] [address], USANitrite Ql (U)NegativeNormalNEGATIVEThe [facility] Medical CenterComment on above:Order Comment: No: Do not add to previous drawPerformed By: #### 66020 #### [facility] [place] [address] [place] [address], USApH (Bld)6.1Lbdcuf4.0-8.0The [facility] Medical CenterComment on above:Order Comment: No: Do not add to previous drawPerformed By: #### 49917 #### [facility] [place] [address] [place] [address], USAProtein [Mass/Vol]NegativeNormalNEGATIVEThe [facility] Medical CenterComment on above:Order Comment: No: Do not add to previous drawPerformed By: #### 37975 #### [facility] [place] [address] [place] [address], USARBC (Bld) [#/Vol]0-2AbnormalNONE SEENThe [facility] Medical CenterComment on above:Order Comment: No: Do not add to previous drawPerformed By: #### 04150 #### [facility] [place] [address] [place] [address], USASPEC GRAV1.701Pup5.015-1.020The [facility] Medical CenterComment on above:Order Comment: No: Do not add to previous draw Performed By: #### 91338 #### [facility] [place] [address] [facility] [place] [address], USAWBC UA0-2AbnormalNONE SEENThe [facility] Medical CenterComment on above:Order Comment: No: Do not add to previous drawPerformed By: #### 05081 #### [facility] [place] [address] [address], USAUREA NITROGEN URon 70-12-7248Fofe nitrogen [Mass/Vol]566 mg/dLNormalThe [facility] Medical CenterComment on above:Order Comment: No: Do not add to previous drawResult Comment: There are no established reference values for random urine specimensPerformed By: #### 79535, 33262, 59165 #### [facility] [place] [address] [facility] [place] [address], USAUS RENALon [id number] RENALUnCincinnati Children's [facility] Department of Radiology [address] [place] [address] Patient Name: KEL CASTILLO : 1955 Sex: M Age: Race: White Pt. Location: [id number] Patient Status: I Ordered Date: 10/05/2019 10:45:00 AM Completed Date: 10/05/2019 12:43 PM Requesting Provider: LIU KRUEGER Attending Provider: DUKE RANGEL Report Copy To: Signs & Symptoms: Increased Creatinine History: See Comments Comments: Hydronephrosis Exam: US RENAL US RENAL 10/05/2019 12:43 PM CLINICAL INDICATIONS: [...] void residual. IMPRESSION: No hydronephrosis. Electronically signed: Madison Castellanos. Transcribed by: [email or web address], User Resident: Electronically Signed by: MADISON CASTELLANOS @ 10/05/2019 03:41 PMNHocking Valley Community HospitalComment on above:Order Comment: Hydronephrosis Vital Signs Date TimeVital SignValuePerforming CqhhfozbhLieidflm88-49-9259 14:14-0400Body .6 cmDainez Gant MD Work Phone: [facility]08-21-2025 14:14-0400Body mass index (BMI) [Ratio]26.63 kg/s7XkqeoBill Gant MD Work Phone: [facility]08-21-2025 14:140400Body .84 kgDainez Gant MD Work Phone: [facility]08-21-2025 14:14-0400Diastolic blood vmgxhypd18 mm[Hg]Bill Gant MD Work Phone: [facility]08-21-2025 14:14-0400Heart rate59 /min Bill Gant MD Work Phone: [facility]08-21-2025 14:14-9067TaK7% (BldA) [Mass fraction]99 %Bill Gant MD Work Phone: [facility]08-21-2025 14:14-0400Systolic blood azmzjuzw376 mm[Hg]Bill Gant MD Work Phone: [facility]07-30-2025 09:53-0400Body .1 cmMegan Verhoff PA-C Work Phone: [facility] Gather [phone] 09:53-0400Body mass index (BMI) [Ratio]27.12 kg/z4Rmnxp Verhoff PA-C Work Phone: [facility] Gather [id number] 09:53-0400Body .94 kgMegan Verhoff PA-C Work Phone: [facility] Gather [id number] 09:53-0400Diastolic blood opvhtbjv95 mm[Hg]Darrick Verhoff PA-C Work Phone: [facility]07-30-2025 09:53-0400Heart rate 51 /minMegan Verhoff PA-C Work Phone: [facility] Gather [id number] 09:53-0400 Respiratory rate18 /minMegan Verhoff PA-C Work Phone: [facility] Gather [id number] 09:53-8533KdR0% (BldA) [Mass fraction]100 %Darrick Verhoff PA-C Work Phone: [facility]07-30-2025 09:53-0400Systolic blood wmezepda398 mm[Hg]Darrick Verhoff PA-C Work Phone: [facility]07-21-2025 13:45-0400Body mass index (BMI) [Ratio]25.33 kg/m2Noa Watson CERTIFIED RETINAL ANGIOGRAPHER Work [id number] 13:45-0400Body temperature 97.3 [degF]Noa Manzoobi CERTIFIED RETINAL ANGIOGRAPHER Work Phone: [id number] 13:45-0400Body .57 kgLisa Simmonsadriano CERTIFIED RETINAL ANGIOGRAPHER Work Phone: [id number] 13:45-0400Diastolic blood uhearjob53 mm[Hg]Noa Manzoobi CERTIFIED RETINAL ANGIOGRAPHER Work Phone: [id number] 13:45-0400Heart rate54 /min Noa Watson CERTIFIED RETINAL ANGIOGRAPHER Work Phone: [facility] [id number] 13:45-0400Respiratory rate18 /minLisa Watson CERTIFIED RETINAL ANGIOGRAPHER Work Phone: [facility] HospitalEgmzsalkwx89-15-6233 13:45-8760ZoS8% (BldA) [Mass fraction]97 %Noa Manzoz CERTIFIED RETINAL ANGIOGRAPHER Work Phone: [facility] HospitalDlfjvxmmyp43-19-8446 13:45-0400Systolic blood tdeobbyo180 mm[Hg]Noa Manzoz CERTIFIED RETINAL ANGIOGRAPHER Work Phone: [facility] HospitalZbplfotnuo74-41-6398 10:22-0400Body iwthzo234.6 cmMegan Verhoff PA-C Work Phone: [facility]06-18-2025 10:22-0400Body mass index (BMI) [Ratio]26.79 kg/g4Ovuyd Verhoff PA-C Work Phone: [facility]06-18-2025 10:22-0400Body krkinc02.3 kgMegan Verhoff PA-C Work Phone: [facility] Gather Lagisn13-66-2940 10:22-0400Diastolic blood judrzhac65 mm[Hg]Darrick Verhoff PA-C Work Phone: [facility] Gather Vrrduc21-44-7710 10:22-0400Heart rate 57 /minMegan Verhoff PA-C Work Phone: [facility]06-18-2025 10:22-0400 Respiratory rate20 /minMegan Verhoff PA-C Work Phone: [facility] Gather Fvfgii97-85-3956 10:22-0400Systolic blood mgpbzumc244 mm[Hg]Darrick Verhoff PA-C Work Phone: [facility]06-10-2025 16:26-0400Body isygrv327.1 [facility] 16:26-0400Body mass index (BMI) [Ratio]27.8 kg/u3FrtakmuidU[facility] Medical Center06-10-2025 16:26-0400Body bcunhx71.74 kg[facility]06-10-2025 16:26-0400Diastolic blood mm[Hg][facility] 01-19-2025 16:26-0400Heart rate64 /[facility] 01-19-2025 16:26-0400Respiratory rate16 /[facility] 01-19-2025 16:26-8427RcU3% (BldA) [Mass fraction]96 %[facility]06-10-2025 16:26-0400Systolic blood drsotyzd592 mm[Hg][facility]06-10-2025 13:06-0400Body mass index (BMI) [Ratio]25.21 kg/m2Noa Watson CERTIFIED RETINAL ANGIOGRAPHER Work Phone: [facility] 8 GamesCrittenton Behavioral HealthPqkrhtjuwy31-40-2317 13:06-0400Body temperature 98.49 [degF]Noa Watson CERTIFIED RETINAL ANGIOGRAPHER Work Phone: [phone] [place], [place] [address]Uheglepuem62-93-6447 13:06-0400Body .21 kgLisa Rigobertohholz CERTIFIED RETINAL ANGIOGRAPHER Work Phone: [facility] HospitalAddelluwmq72-28-8555 13:06-0400Diastolic blood nmkdttte64 mm[Hg]Noa Aichholz CERTIFIED RETINAL ANGIOGRAPHER Work Phone: [facility] HospitalSgyyfmbsja21-16-6834 13:06-0400Heart rate66 /min Noa Aichholz CERTIFIED RETINAL ANGIOGRAPHER Work Phone: [facility] HospitalPrzyvhbxse45-22-0741 13:06-0400Respiratory rate18 /minLisa Aichholz CERTIFIED RETINAL ANGIOGRAPHER Work Phone: [facility] HospitalSdstbtiodk77-33-6110 13:06-2465SpP9% (BldA) [Mass fraction]96 %Noa Aichholz CERTIFIED RETINAL ANGIOGRAPHER Work Phone: [facility] HospitalOaiohtaqpp36-64-9452 13:06-0400Systolic blood rsimpbjh292 mm[Hg]Noa Aichholz CERTIFIED RETINAL ANGIOGRAPHER Work Phone: [facility] HospitalNockfxriyy35-29-8314 13:03-0400Body mass index (BMI) [Ratio]25.21 kg/m2Lisa Aichholz CERTIFIED RETINAL ANGIOGRAPHER Work Phone: [facility] HospitalXgkjswrcfh60-81-6329 13:03-0400Body temperature 98.71 [degF]Noa Rigobertohholz CERTIFIED RETINAL ANGIOGRAPHER Work Phone: [facility] HospitalFzffbazkky82-31-2403 13:03-0400Body ljmsbi08.21 kgLisa Aichholz CERTIFIED RETINAL ANGIOGRAPHER Work Phone: [place] [address]Erpfqlqgqx32-77-8221 13:03-0400Diastolic blood fwipxxle13 mm[Hg]Noa Aichholz CERTIFIED RETINAL ANGIOGRAPHER Work Phone: [place] [address]Maemihdpxv03-82-9892 13:03-0400Heart rate67 /min Noa Aichholz CERTIFIED RETINAL ANGIOGRAPHER Work Phone: [place] [address]Avjpgnqfol44-50-5031 13:03-0400Respiratory rate18 /minLisa Aichholz CERTIFIED RETINAL ANGIOGRAPHER Work Phone: [facility] HospitalMrcluzlesb14-65-0107 13:03-0252TdN0% (BldA) [Mass fraction]96 %Noa Shirley CERTIFIED RETINAL ANGIOGRAPHER Work Phone: [facility] HospitalHuxwmmhskz41-08-1294 13:03-0400Systolic blood fmwqhohu872 mm[Hg]Noa Simmonsadriano CERTIFIED RETINAL ANGIOGRAPHER Work Phone: [facility] HospitalTzbgsugwzj08-78-8633 15:59-0400Body wsgnwo500.1 cm[facility]03[facility] 15:59-0400Body mass index (BMI) [Ratio]27.8 kg/y8SwbxyhldnU[facility] Medical Center03-18-2025 15:59-0400Body ygcnym74.8 kg[facility]03-18-2025 15:59-0400Diastolic blood nusmapdp09 mm[Hg][facility]03-18-2025 15:59-0400 Heart rate56 /[facility]03-18-2025 15:59-0400 Respiratory rate16 /[facility]03-18-2025 15:59-0400 SaO2% (BldA) [Mass fraction]95 %[facility]03-18-2025 15:59-0400Systolic blood eqcbvkcx213 mm[Hg][facility] 10-12-2024 11:22-0500Body awobcp588.1 cmAmanda Mandeep Latasha DO Work Phone: [facility]03-03-2025 11:22-0500Body mass index (BMI) [Ratio]28.29 kg/m2Qucvkf Mandeep Latasha DO Work Phone: [facility]03-03-2025 11:22-0500Body ucrgro46.1 kgAmanda Mandeep Latasha DO Work Phone: [facility]03-03-2025 11:22-0500Diastolic blood ewngrvdk47 mm[Hg]Eun Mandeep Latasha DO Work Phone: [facility]03-03-2025 11:22-0500Heart rate58 /min Eun Mandeep Latasha DO Work Phone: [facility]03-03-2025 11:22-0500Systolic blood psxlhhni524 mm[Hg]Eun Black DO Work Phone: [facility]02-27-2025 13:45-0500Body mass index (BMI) [Ratio]25.82 kg/m2Noa Watson CERTIFIED RETINAL ANGIOGRAPHER Work Phone: [facility] HospitalCiwzlpalde82-38-1327 13:45-0500Body temperature 98.1 [degF]Noa Shirley CERTIFIED RETINAL ANGIOGRAPHER Work Phone: [facility] HospitalAqmhxcsvak80-64-5629 13:45-0500Body .02 kgNelly Shirley CERTIFIED RETINAL ANGIOGRAPHER Work Phone: [facility] HospitalPngpyzlhfy43-38-5845 13:45-0500Diastolic blood wagbkqny05 mm[Hg]Noa Shirley CERTIFIED RETINAL ANGIOGRAPHER Work Phone: [facility] HospitalIoqpmvcfeh24-21-7512 13:45-0500Heart rate51 /min Noa Shirley CERTIFIED RETINAL ANGIOGRAPHER Work Phone: [facility] HospitalAbmxflshod91-03-4311 13:45-0500Respiratory rate18 /minLi Rigobertorandolphadriano CERTIFIED RETINAL ANGIOGRAPHER Work Phone: [facility] HospitalTnhqheezwm62-53-6191 13:45-9804McR2% (BldA) [Mass fraction]97 %Noa Shirley CERTIFIED RETINAL ANGIOGRAPHER Work Phone: [facility] HospitalWzvammvqxw08-99-1954 13:45-0500Systolic blood zcrnykyq647 mm[Hg]Noa Shirley CERTIFIED RETINAL ANGIOGRAPHER Work Phone: [facility] HospitalXmfofjzqqj83-18-9397 13:13-0500Body .7 cmBrharmeet Coronado CERTIFIED RETINAL ANGIOGRAPHER Work Phone: [facility] HospitalVteoavpgwb05-02-6703 13:13-0500Body mass index (BMI) [Ratio]27.55 kg/i4UotmyzbkJayy Pollocktrick CERTIFIED RETINAL ANGIOGRAPHER Work Phone: [facility] HospitalQejnlubfpi21-11-4203 13:13-0500Body temperature 96.6 [degF]Jayy Pollocktrick CERTIFIED RETINAL ANGIOGRAPHER Work Phone: [facility] HospitalAwufgusxkl44-68-0087 13:13050Body ygvpsi61.19 kgJayy Padillapatrick CERTIFIED RETINAL ANGIOGRAPHER Work Phone: [facility] HospitalIobsewrcpa93-26-6483 13:13-0500Diastolic blood nuvcmwre28 mm[Hg]Jayy Padillapatrick CERTIFIED RETINAL ANGIOGRAPHER Work Phone: [place] [address]Bjvtdparsg61-74-8920 13:13-0500Heart rate57 /min Jayy Pollocktrick CERTIFIED RETINAL ANGIOGRAPHER Work Phone: [facility] HospitalUlwmcbszpr24-73-9110 13:130500Respiratory rate16 /minJayy Padillapatrick CERTIFIED RETINAL ANGIOGRAPHER Work Phone: [place] [address]Lzuakshozg46-03-8445 13:139901PzD4% (BldA) [Mass fraction]94 %Jayy Padillapatrick CERTIFIED RETINAL ANGIOGRAPHER Work Phone: [facility] HospitalDqfffwjiwp52-17-0475 13:13050Systolic blood xckuqcfr305 mm[Hg]Jayy Pollocktrick CERTIFIED RETINAL ANGIOGRAPHER Work Phone: [facility] HospitalBpczljspeb21-70-4506 09:36-0400Body .6 cmAmanda Mandeep Davilaon DO Work Phone: [facility]09-23-2024 09:36-0400Body mass index (BMI) [Ratio]28.64 kg/p9Qrokuj Mandeep Latasha DO Work Phone: [facility]09-23-2024 09:36-0400Body .5 kgAmanchevy Mandeep Latasha DO Work Phone: [place] [address]-23-2024 09:36-0400Diastolic blood vnwuzwpi26 mm[Hg]Eun Mandeep Latasha DO Work Phone: [place] [address]-23-2024 09:36-0400Heart rate57 /min Eun Black DO Work Phone: [facility]09-23-2024 09:36-0400Systolic blood izjqvhbn609 mm[Hg]Eun Black DO Work Phone: [facility]08-20-2024 13:00-0400Body ebshbu251.64 cm[facility]08-[facility]-20[facility] 13:00-0400Body mass index (BMI) [Ratio]29.4 kg/y7XirzsefqhUc Medical Center08-20-2024 13:00-0400Body bewnfqojlvj23 [degF][facility]08-20-2024 13:00-0400Body vqckao53.72 kg[facility]08-20-2024 13:00-0400Diastolic blood mm[Hg][facility]08-20-2024 13:00-0400 Heart rate58 /[facility]08-20-2024 13:00-0400 Respiratory rate18 /[facility]08-20-2024 13:00-0400 SaO2% (BldA) [Mass fraction]97 %[facility]08-20-2024 13:00-0400Systolic blood mm[Hg][facility] 09-19-2023 13:53-0500Body .7 Waldemar Grimes MD Work Phone: [facility] HospitalSnamcttime02-57-9856 13:53-0500Body mass index (BMI) [Ratio]28.43 kg/o2IwqtteShaikh Cornelio LEMON Work Phone: [facility] HospitalDfodyisgdb78-43-9381 13:53-0500Body temperature 97.5 [degF]Shaikh Cornelio LEMON Work Phone: [facility] HospitalElvjugymti83-36-8909 13:53-0500Body pqqhee61.82 kgShaikh Cornelio LEMON Work Phone: [facility] HospitalQqiulyburo94-88-0087 13:53-0500Diastolic blood wpraorrl91 mm[Hg]Shaikh Cornelio LEMON Work Phone: watAgameGdjeyluzhu50-49-6301 13:53-0500Heart rate59 /min Shaikh Cornelio LEMON Work Phone: noHelp ScoutHgicfmabrr06-97-7364 13:53-5420AiG2% (BldA) [Mass fraction]95 %Shaikh Cornelio LEMON Work Phone: noHelp ScoutIdutffjusl53-33-6060 13:53-0500Systolic blood tnwafcgr661 mm[Hg]Shaikh Cornelio LEMON Work Phone: watAgameIsmqpktdyn51-41-5926 10:00-0400Body .64 cmAalisonobi Toscano Other [place] Other 06-16-2023 10:00-0400Body mass index (BMI) [Ratio] 31.57 kg/m2Hanna Mando Other [place] Other 06-16-2023 10:00-0400Body hchdfzzhpog58.2 [degF]Hanna Ortizcatarina Other [place] Other 06-16-2023 10:00-0400Body omrrng10.72 kgHanna Wesholden Other [place] Other 06-16-2023 10:00-0400Diastolic blood ifhopvcu39 mm[Hg] Hanna Wesholden Other [place] Other 06-16-2023 10:00-0400Respiratory rate20 /minHanna Mando Other [place] Other 06-16-2023 10:00-4349VlK8% (BldA) [Mass fraction]98 % Hanna Toscano Other [facility] [employer] Other 453160-71-7237 10:00-0400Systolic blood tbubxwnt605 mm[Hg] Hanna Toscano Other [place] [employer] Other 007694-05-4420 15:40-0500Body xromhw239.6 cmAmanda Mandeep DO Work Phone: [facility]01-04-2023 15:40-0500Body aatpal67.81 kgAmanda Mandeep DO Work Phone: [facility]01-04-2023 15:40-0500Diastolic blood zycpjwqh65 mm[Hg]Eun Mandeep DO Work Phone: [facility]01-04-2023 15:40-0500Heart rate61 /min Eun Mandeep DO Work Phone: [facility]01-04-2023 15:40-7214NqS7% (BldA) [Mass fraction]100 %Eun Mandeep DO Work Phone: [facility]01-04-2023 15:40-0500Systolic blood mm[Hg]Eun Mandeep DO Work Phone: [facility]11-29-2022 14:40-0500Body lddsaf390.64 Jean Paul Mando Other [facility] [employer] Other 11-29-2022 14:40-0500Body mass index (BMI) [Ratio] 31.95 kg/m2Hanna Wesholden Other [place] [employer] Other 11-29-2022 14:40-0500Body .81 kgHanna Mando Other [place] [employer] Other 11-29-2022 14:40-0500Diastolic blood gtejmdup21 mm[Hg] Hanna Toscano Other [place] Other 11-29-2022 14:40-7329NyC8% (BldA) [Mass fraction]95 % Hanna Toscano Other [place] Other 11-29-2022 14:40-0500Systolic blood gfskrfin471 mm[Hg] Hanna Toscano Other [place] Other 10-25-2022 16:30-0400Body ppzoas189.64 cmFormerly [facility] Mabel Other [place] Other 10-25-2022 16:30-0400Body mass index (BMI) [Ratio] 32.12 kg/v7Lbtpa [facility] Other [place] Other 10-25-2022 16:30-0400Body ogvhtsmmtzl75.5 [degF][facility] Other [place] Other 10-25-2022 16:30-0400Body .[facility] Other [place] Other 10-25-2022 16:30-0400Diastolic blood xhyvgngt15 mm[Hg] [facility] Other [place] Other 10-25-2022 16:30-0400Respiratory rate20 /minFormerly [facility] Other [place] Other 10-25-2022 16:30-0585PmT1% (BldA) [Mass fraction]96 % Corona Monroe Other [employer] Other 10-25-2022 16:30-0400Systolic blood mm[Hg] Corona Monroe Other [place] Other 08-30-2022 09:44-0400Body hansvw693.1 cmAmanda Mandeep DO Work Phone: [facility]08-30-2022 09:44-0400Body suoldc95.68 kgAmancehvy Mandeep DO Work Phone: [facility]08-30-2022 09:44-0400Diastolic blood muvmdmcj52 mm[Hg]Eunsotero Mccrayok DO Work Phone: [facility]08-30-2022 09:44-0400Heart rate57 /min Eunsotero Mccrayok DO Work Phone: [facility]08-30-2022 09:44-0400Systolic blood mninepvp321 mm[Hg]Eun Kaufman DO Work Phone: [facility]07-19-2022 15:30-0400Body vvfxyt246.64 cmCorona Monroe Other [place] Other 07-19-2022 15:30-0400Body mass index (BMI) [Ratio] 31.95 kg/s9LtcjxCorona Monroe Other [place] Other 07-19-2022 15:30-0400Body pppszrlxupq87.9 [degF]Corona Monroe Other [place] Other 07-19-2022 15:30-0400Body yyevun99.81 kgCorona Casesoila Other [place] Other 07-19-2022 15:30-0400Diastolic blood rqbeeefm80 mm[Hg] Corona Monroe Other [place] Other 07-19-2022 15:30-0400Respiratory rate20 /minCorona Monroe Other [place] Other 07-19-2022 15:30-7858LoP4% (BldA) [Mass fraction]97 % Corona Monroe Other [place] Other 07-19-2022 15:30-0400Systolic blood hotbchrq004 mm[Hg] Corona Monroe Other [place] Other 06-20-2022 12:00-0400Body edgnuh446.64 cmLuis Fernandotiburcio Suazo Other [place] Other 06-20-2022 12:00-0400Body mass index (BMI) [Ratio] 32.84 kg/j6BccwhCristo Suazo Other [place] Other 06-20-2022 12:00-0400Body ghwyqx75.31 kgCristo Lambahan Other [place] Other 06-20-2022 12:00-0400Diastolic blood knvbpixj64 mm[Hg] Cristo Suazo Other [place] Other 06-20-2022 12:00-0400Respiratory rate18 /minCristo Lambahan Other [place] Other 06-20-2022 12:00-7837DwM5% (BldA) [Mass fraction]98 % Cristo Suazo Other [employer] Other 06-20-2022 12:00-0400Systolic blood sjbwujda436 mm[Hg] Cristo Suazo Other [employer] Other 05-17-2022 17:00-0400Body xigkma895.64 cmCristo Suazo Other [place] Other 05-17-2022 17:00-0400Body mass index (BMI) [Ratio] 31.15 kg/q6TqqokCristo Suazo Other [place] Other 05-17-2022 17:00-0400Body .54 kgCristo Suazo Other [place] Other 05-17-2022 17:00-0400Diastolic blood eoqzgpvh97 mm[Hg] Cristo Suazo Other [place] Other 05-17-2022 17:00-0400Respiratory rate18 /minCristo Suazo Other [place] Other 05-17-2022 17:00-7563BjX7% (BldA) [Mass fraction]95 % Cristo Suazo Other [place] Other 05-17-2022 17:00-0400Systolic blood rbwshfos124 mm[Hg] Cristo Suazo Other [place] Other 05-13-2022 08:25-0400Body kszoac121.1 Justin Bright MD Work Phone: [place] [address]-13-2022 08:25-0400Body zujjse31.68 kgJessie Bright MD Work Phone: cL[facility] HospitalYuouuc01-61-0709 08:25-0400Diastolic blood ogmpvzwj47 mm[Hg]Jessie Bright MD Work Phone: cL[facility] HospitalVpcrkd27-65-1486 08:25-0400Heart rate59 /min Jessie Bright MD Work Phone: cL[facility] HospitalHgtfiy93-97-3017 08:25-0400Systolic blood mm[Hg]Jessie Bright MD Work Phone: cL[facility] HospitalXbqryd70-95-4485 15:40-0400Body rprnxi993.64 cmEricky Triana Other [employer] Other 10-12-2021 15:40-0400Body mass index (BMI) [Ratio] 30.84 kg/u0GhdtvReuben Triana Other [place] Other 10-12-2021 15:40-0400Body .3 [degF]Reuben Triana Other [place] Other 10-12-2021 15:40-0400Body fumwmr99.68 kgReuben Triana Other [employer] Other 10-12-2021 15:40-0400Diastolic blood ithmeiwi49 mm[Hg] Reuben Triana Other [place] Other 10-12-2021 15:40-0400Respiratory rate18 /minEricky Triana Other [place] Other 10-12-2021 15:40-8200LgT0% (BldA) [Mass fraction]94 % Reuben Triana Other [facility] [employer] Other [id number] 15:40-0400Systolic blood ssoblywc269 mm[Hg] Reuben Triana Other [facility] [employer] Other Encounters Encounter DateEncounter TypeCare ProviderFacilityStart: 14-64-6725Cajakknrf department patient visitBELGreen Cross Hospitaltart: 06-15-2025 End: 86-46-6803Sfoqexshkk and management of inpatientMUNIER NAZZALUniversOhioHealth Doctors Hospitaltart: 53-49-9514zeiiizcdklVPRFJTWSelect Medical Specialty Hospital - Cantontart: 06-12-2025 End: 84-73-8894Qclwveeve department patient visitNAEL [facility] Hospitaltart: 12-91-7331Dqscmjlewc and management of inpatientKELLILYN RUSniversOhioHealth Doctors Hospitaltart: 29-10-0254Ttdeqhdtj for other preprocedural examinationMUNIER NAAdams County Hospitaltart: 06-07-2025 End: 04-97-3270Wrogcbhce for other preprocedural examinationMUNIER [facility] Campustart: 06-07-2025 End: 14-14-7639Vzlqiqpwup and management of inpatientMUNIER NAZZALUniversOhioHealth Doctors Hospitaltart: 65-38-9348aigvbmybpkSCNNNVGEast Ohio Regional Hospitaltart: 95-06-0439kaiwuzygosLEOGSFHEast [place] Regional Hospitaltart: 05-26-2025 End: 08-00-9747snpffzajixORSGM ALAOhioHealth Riverside Methodist Hospitaltart: 93-60-9991mhohggemdeRRLGEHDEast Ohio Regional Hospitaltart: 05-24-2025 End: 13-92-8401ghzfvxyxswKXUGHKXSamaritan Hospital Start: 05-11-2025 End: 40-61-6761iutyejmjxxKOBFCleveland Clinic [facility]ron Generaltart: 04-29-2025 End: 17-46-1796csfzhxollmKYJSJT MOOK ROLONFacility:[facility] Start: 04-21-2025 End: 01-74-8189uhgarclxjnICJZXGWadsworth-Rittman Hospitaltart: 04-15-2025 End: 66-21-4621ysmjebhueuYLJZWJWadsworth-Rittman Hospitaltart: 04-08-2025 End: 54-74-1663sgrrqcapdmLLNNCleveland Clinic Akron Generaltart: 04-05-2025 End: 03-31-5624Hvnkmfuna encounterDainez Gant MD Work Phone: ppg Cardiology AkronComment on above:Router Operator Radial - OtherStart: 04-05-2025 End: 65-43-2491gfylbpmswaQJPHZ A CUTLERSelect Medical Specialty Hospital - Trumbulltart: 04-02-2025 End: 65-02-7514Qfwvjg-up encounterDainez Gant MD Work Phone: [facility] AkronComment on above:ResultsStart: 04-01-2025 End: 67-74-5174lcepjvaxhjKHTUF A CUTLERFacility:[place] GeneralStart: 04-01-2025 End: 91-87-5043Anrxrup encounter procedureBill Gant MD Work Phone: ppg Cardiology AkronComment on above:Coronary artery disease involving s[place] coronary artery of [place] heart without angina pectoris (Primary Dx); Hx of CABG; Primary hypertension; Mixed hyperlipidemia; CRI (chronic renal insufficiency), stage 4 (severe) (HCC); PAD (peripheral artery disease); Other emphysema (HCC); Non-rheumatic mitral regurgitation; ROMAN (dyspnea on exertion); MCI (mild cognitive impairment)Start: 04-01-2025 End: 90-64-1811qhsbvrpktfBSMAV A CUTLERFacility:[place] GeneralStart: 04-01-2025 End: 93-00-3639Jzgqudnft Result EncounterGeneric External Data ProviderNOMS External Department UnsolicitedStart: 04-01-2025 End: 37-81-7901Gfxkepgmq Result EncounterGeneric External Data ProviderNOMS External Department UnsolicitedStart: 04-01-2025 End: 68-24-2795ufrnhfpaltGJONESt. Joseph Hospital HospitalStart: 03-11-2025 End: 56-60-4495Cjaqjlstw Result EncounterGeneric External Data ProviderNOMS External Department UnsolicitedStart: 03-11-2025 End: 44-24-6627Yadeaaygn Result EncounterGeneric External Data ProviderNOMS External Department UnsolicitedStart: 03-10-2025 End: 32-25-8401Zynkau outpatient visit 25 minutesDarrick Cannon PA-C Work Phone: [facility] ClinicComment on above:Cervical spondylosis (Primary Dx)Start: 03-10-2025 End: 36-85-6396krtqxifvsmTOAAPSt. Joseph Hospital HospitalStart: 03-01-2025 End: 25-26-0305Tosesb flowsheetNellysa Anaisz CERTIFIED RETINAL ANGIOGRAPHER Work Phone: noMS CWM FMStart: 03-01-2025 End: 64-82-9016Itodyo flowsheetLisa Aichholz CERTIFIED RETINAL ANGIOGRAPHER Work Phone: noMS CWM FMStart: 03-01-2025 End: 80-04-6675nldqjlvobrZIYO AICHHOLDAVONot AvailableStart: 03-01-2025 End: 29-54-1799Ueootf outpatient visit 25 minutesLisa Shirley CERTIFIED RETINAL ANGIOGRAPHER Work Phone: noms CW FMComment on above:Cervical spondylosis (Primary Dx); Chronic diastolic heart failure (HCC); Primary hypertension ; Coronary artery disease involving [place] coronary artery of [place] heart without angina pectoris ; Chronic kidney disease, stage 4 (severe) (HCC); Pulmonary hypertension (HCC); EDITH (generalized anxiety disorder) ; Other hyperlipidemia ; Neck pain; Recurrent major depression in partial remission ; Gastroesophageal reflux disease without esophagitis; Chronic obstructive pulmonary disease, unspecified COPD type (HCC)Start: 02-19-2025 End: 82-53-9730Pnuoxceek Result EncounterGeneric External Data ProviderNOMS External Department UnsolicitedStart: 02-19-2025 End: 90-82-1300Pcgmxwwuv Result EncounterGeneric External Data ProviderNOMS External Department UnsolicitedStart: 02-19-2025 End: 75-73-2767nimujilpqcOQIVUHD Yeimy [facility]RISTOWMIRTHAMercy [facility] HospitalStart: 02-18-2025 End: 06-16-2192Ppswkodpe Result EncounterGeneric External Data ProviderNOMS External Department UnsolicitedStart: 02-18-2025 End: 55-43-2952Bghtgprmi Result EncounterGeneric External Data ProviderNOMS External Department UnsolicitedStart: 01-27-2025 End: 02-05-1653Cajcrd outpatient new 45 minutesDarrick Cannon PA-C Work Phone: [facility] ClinicComment on above:Cervical spondylosis (Primary Dx)Start: 01-27-2025 End: 73-12-0927lwljovayvnSUAHS N VERHOFFMercy Health St[facility] HospitalStart: 01-19-2025 End: 64-29-0445Noxwoco encounter procedureUnc Health Pard[facility] Nephrology Adilson Work Phone: Start: 01-19-2025 End: 37-17-6691Ctzvsc flowsHemant Watson CERTIFIED RETINAL ANGIOGRAPHER Work Phone: noms CWM FMStart: 01-19-2025 End: 10-87-8727Tpsbvp flowsheetNoa Watson CERTIFIED RETINAL ANGIOGRAPHER Work Phone: noms CWM FMStart: 01-19-2025 End: 23-33-6182wvspbnylluKKKB AICHHOLZCherrington Hospital Work Phone: Start: 01-19-2025 End: 48-27-4011Jtmmco outpatient visit 25 minutesLisa Watson CERTIFIED RETINAL ANGIOGRAPHER Work Phone: noms CWM FMComment on above:Cervical spondylosis (Primary Dx); Neck pain; Primary hypertension (CMS/HCC); Chronic kidney disease, stage 4 (severe) (CMS/HCC); EDITH (generalized anxiety disorder) (CMS/HCC); H/O: lung cancer; MCI (mild cognitive impairment)Start: 84-82-4522aehakutzmcSNBUMyMichigan Medical Center Saulttart: 78-15-1407bevapcoatiHGVHMyMichigan Medical Center Saulttart: 01-11-2025 End: 47-54-2923bxtvgtqxeaNQAZ Xavi WATSONPremier Health At[facility] Centerca [facility] Hospitaltart: 01-07-2025 End: 15-89-8514Iknbgo OnlyNoa Watson CERTIFIED RETINAL ANGIOGRAPHER Work Phone: noms CWM FMComment on above:Neck pain (Primary Dx) Start: 12-24-2024 End: 09-98-8093GawsowPcxd Aichholz CERTIFIED RETINAL ANGIOGRAPHER Work Phone: noms CWM FMComment on above:Primary hypertension (CMS/HCC); Other hyperlipidemia; Neck pain; Recurrent major depression in partial remission (HCC) (CMS/HCC); Coronary artery disease involving [place] coronary artery of [place] heart without angina pectoris (CMS/HCC); Gastroesophageal reflux disease without esophagitis; Chronic obstructive pulmonary disease, unspecified COPD type (CMS/HCC); EDITH (generalized anxiety disorder) (CMS/HCC)Start: 12-07-2024 End: 30-16-8911AhxfziVrex Aichholz CERTIFIED RETINAL ANGIOGRAPHER Work Phone: noms CWM FMComment on above:Other hyperlipidemia; Coronary artery disease involving [place] coronary artery of [place] heart without angina pectoris (CMS/HCC); Primary hypertension (CMS/HCC); Recurrent major depression in partial remission (HCC) (CMS/HCC); EDITH (generalized anxiety disorder) (CMS/HCC)Start: 12-01-2024 End: 09-30-5554EtuygvEixd Aichholz CERTIFIED RETINAL ANGIOGRAPHER Work Phone: noms CWM FMComment on above:EDITH (generalized anxiety disorder) (CMS/HCC) (Primary Dx)Start: 11-19-2024 End: 40-73-9530Eoolki flowsheetLisa Simmonsholz CERTIFIED RETINAL ANGIOGRAPHER Work Phone: NOM[facility] CWM FMStart: 11-19-2024 End: 19-35-9996Jwnnso flowsheetLisa Aichholz CERTIFIED RETINAL ANGIOGRAPHER Work Phone: noms CWM FMStart: 11-19-2024 End: 86-14-3123Ybeuih outpatient visit 25 minutesLisa Irisholz CERTIFIED RETINAL ANGIOGRAPHER Work Phone: NOMS CWM FMComment on above:Neck pain (Primary Dx); Primary hypertension (CMS/HCC); Chronic kidney disease, stage 4 (severe) (CMS/HCC); EDITH (generalized anxiety disorder) (CMS/HCC); Functional gait abnormality; MCI (mild cognitive impairment)Start: 11-19-2024 End: 18-12-7067beyiroqnapRAED JULIANAot AvailableStart: 11-13-2024 End: 07-31-3136AmdqajLsgx Aichholz CERTIFIED RETINAL ANGIOGRAPHER Work Phone: noMS CWM FMComment on above:Primary hypertension (CMS/HCC); Other hyperlipidemia; Recurrent major depression in partial remission (HCC) (CMS/HCC); Coronary artery disease involving s[place]ia coronary artery of seld[place]ia heart without angina pectoris (CMS/HCC); Gastroesophageal reflux disease without esophagitis; EDITH (generalized anxiety disorder) (CMS/HCC)Start: 11-12-2024 End: 98-67-6557RmxzvkZwru Rigobertohholz CERTIFIED RETINAL ANGIOGRAPHER Work Phone: NOMS CWM FMComment on above:Primary hypertension (CMS/HCC); Other hyperlipidemia; Recurrent major depression in partial remission (HCC) (CMS/HCC); Coronary artery disease involving seldovia coronary artery of seld[place]ia heart without angina pectoris (CMS/HCC); Gastroesophageal reflux disease without esophagitis; EDITH (generalized anxiety disorder) (CMS/HCC)Start: 11-09-2024 End: 07-61-9392YtxyvwWqrq Aichholz CERTIFIED RETINAL ANGIOGRAPHER Work Phone: NOMS CWM FMComment on above:Other hyperlipidemia (CMS/HCC); EDITH (generalized anxiety disorder) (CMS/HCC); Recurrent major depression in partial remission (HCC) (CMS/HCC)Start: 10-27-2024 End: 09-44-3486kyjhimpknsFhnhtzqemSelect Medical Specialty [facility] Work Phone: Start: 10-27-2024 End: 99-33-0586Qlgjzur encounter procedureUn[facility] Nephrology Adilson Work Phone: Start: 10-20-2024 End: 94-10-0931hftknqydspCNJBMercer County Community Hospitaltart: 10-13-2024 End: 74-31-2239dveblqkckwOXMWPremier Healthtart: 10-12-2024 End: 34-01-0903biweahqzfvSYIKER MOOK ROLONFacility:[facility] Start: 10-12-2024 End: 29-37-2469Mzysnyv encounter procedureEun Black DO Work Phone: NeurologyComment on above:Gait abnormality (Primary Dx); Memory loss; Neck painStart: 10-08-2024 End: 74-57-5144Bsbhyw flowsheetLisa Aichholz CERTIFIED RETINAL ANGIOGRAPHER Work Phone: NOMS CWM FMStart: 10-08-2024 End: 17-85-4265Itnzrl flowsheetLisa Aichholz CERTIFIED RETINAL ANGIOGRAPHER Work Phone: noMS CWM FMStart: 10-08-2024 End: 51-10-8451gnuyjkjosrQMIY AICHHOLZNot AvailableStart: 10-08-2024 End: 35-12-6631Udbgrp outpatient visit 25 minutesLisa Anaisz CERTIFIED RETINAL ANGIOGRAPHER Work Phone: noMS CWM FMComment on above:Primary hypertension (CMS/HCC) (Primary Dx); Chronic obstructive pulmonary disease, unspecified (CMS/HCC); Chronic kidney disease, stage 4 (severe) (CMS/HCC); Coronary artery disease involving seldovia coronary artery of seld[place]ia heart without angina pectoris (CMS/HCC); Gastroesophageal reflux disease without esophagitis; EDITH (generalized anxiety disorder) (CMS/HCC); Recurrent major depressive disorder, in full remission (CMS/HCC); Mixed hyperlipidemia (CMS/HCC); MCI (mild cognitive impairment); Other hyperlipidemia (CMS/HCC); Recurrent major depression in partial remission (HCC) (CMS/HCC); Chronic obstructive pulmonary disease, unspecified COPD type (CMS/HCC)Start: 09-08-2024 End: 16-26-1415qjljtamolpGQPUZ HANCOCKFacility:[facility] Hospitaltart: 09-08-2024 End: 51-15-6105Mjxionz encounter Lewis Polo PhD Work Phone: NeuropyschologyComment on above:Major neurocognitive disorder (HCC) (Primary Dx); JITENDRA (obstructive sleep apnea); Chronic kidney disease, unspecified CKD stage; Coronary artery disease, unspecified vessel or lesion type, unspecified whether angina present, unspecified whether seldovia or transplanted heart; Complaints of memory disturbanceStart: 06-27-2024 End: 03-45-5587Tjmgmw OnlyJayy Pollocktrick CERTIFIED RETINAL ANGIOGRAPHER Work Phone: noms CW FMComment on above:Recurrent major depression in partial remission (HCC) (CMS/HCC)Start: 06-23-2024 End: 08-39-3503Fsbsecdf Result EncounterBrittany Coronado CERTIFIED RETINAL ANGIOGRAPHER Work Phone: noms External Department UnsolicitedStart: 06-23-2024 End: 83-79-8180Pjkdqgsp Result EncounterBrittany Coronado CERTIFIED RETINAL ANGIOGRAPHER Work Phone: noms External Department UnsolicitedStart: 06-23-2024 End: 70-12-6019dcwqidjvtxRUFEENFAHARMEET [facility] Hospitaltart: 06-17-2024 End: 73-79-5781Znfymd flowsheetBrittany Coronado CERTIFIED RETINAL ANGIOGRAPHER Work Phone: NOIV CWM FMStart: 06-17-2024 End: 81-36-6220Uauale flowsheetBrittany Coronado CERTIFIED RETINAL ANGIOGRAPHER Work Phone: NOZK CWM FMStart: 06-17-2024 End: 65-75-0215bexsynmeutPDMVOJYO FITMILLICENTTRICKNot AvailableStart: 06-17-2024 End: 68-78-0375Ejxiaf outpatient visit 15 minutesJayy Coronado CERTIFIED RETINAL ANGIOGRAPHER Work Phone: noms CWM FMComment on above:Primary hypertension (CMS/HCC) (Primary Dx); Other hyperlipidemia (CMS/HCC); Coronary artery disease involving seldovia coronary artery of seldovia heart without angina pectoris (CMS/HCC); Frequent falls; Functional gait abnormality; CKD (chronic kidney disease) stage 4, GFR 15-29 ml/min (CMS/HCC)Start: 06-10-2024 End: 42-93-7554Huaggj flowsheetJayy Moyerk CERTIFIED RETINAL ANGIOGRAPHER Work Phone: noms CWM FMStart: 06-10-2024 End: 28-27-1554Vboobw flowsheetJayy Coronado CERTIFIED RETINAL ANGIOGRAPHER Work Phone: noms CWM FMStart: 36-65-7239gmfufnbfbhSQOMXKOH FITZPATRICKNot AvailableStart: 55-96-1664xbehzlffvvAVQBLZ R MOOK [facility]: 05-12-2024 End: 91-79-9207Kuizfxuxun hospital visit by physicianCt [facility] RadiologyComment on above:Memory loss [R41.3]Start: 05-04-2024 End: 74-59-6629tikmcvlfwfLLVBDU MOOK ROLONFacility:[facility] Start: 05-04-2024 End: 55-45-4347Kepthqu encounter Matt Black DO Work Phone: NeurologyComment on above:Memory loss (Primary Dx); Abnormality of gaitStart: 03-31-2024 End: 94-17-5895pfvgwkilprLmnkarvytSelect Medical Specialty Hospital - [facility] Work Phone: Start: 03-31-2024 End: 93-78-7139Trxzmzr encounter procedureUnc Health [facility] Nephrology Adilson Work Phone: Start: 03-28-2024 End: 63-33-9197KgfmgiNtuzwp Fawwad MD Work Phone: noms CW FMComment on above:Gastroesophageal reflux disease without esophagitis; Recurrent major depression in partial remission (HCC) ([facility]/HCC)Start: 03-11-2024 End: 26-34-3553dlafyrhpgfHWXSMB FAWWADNot AvailableStart: 09-19-2023 End: 90-03-0329Afmclh outpatient visit 25 minutesShaikh Cornelio LEMON Work Phone: noms CW IMComment on above:Traumatic complete tear of left rotator cuff, subsequent encounter (Primary Dx); Recurrent major depression in partial remission (HCC) ([facility]); Other hyperlipidemia ([facility]); EDITH (generalized anxiety disorder) ([facility]); CKD (chronic kidney disease) stage 4, GFR 15-29 ml/min ([facility]); Gastroesophageal reflux disease without esophagitis; Coronary artery disease involving seld[place] coronary artery of s[place] heart without angina pectoris ([facility]); Primary hypertension ([facility]); Chronic obstructive pulmonary disease, unspecified COPD type ([facility])Start: 09-05-2023 End: 88-94-1759Uiokefyrg Result EncounterGeneric External Data ProviderNOMS External Department UnsolicitedStart: 09-05-2023 End: 52-90-0075Wqzhxtgom Result EncounterGeneric External Data ProviderNOMS External Department UnsolicitedStart: 08-26-2023 End: 58-50-0389Jkrztzoti Result EncounterGeneric External Data ProviderNOMS External Department UnsolicitedStart: 08-26-2023 End: 56-27-1300Damsblgww Result EncounterGeneric External Data ProviderNOMS External Department UnsolicitedStart: 07-29-2023 End: 20-39-1145Vfurbrmdm Result EncounterGeneric External Data ProviderNOMS External Department UnsolicitedStart: 07-29-2023 End: 62-80-2002Nakeztqrk Result EncounterGeneric External Data ProviderNOMS External Department UnsolicitedStart: 04-09-2023 End: 05-63-5389Coyfrnbtu department patient visitNON STAFFFacility:[facility] Centertart: 04-09-2023 End: 84-91-3740xpkitlrupvJrye Bakusamas Other [employer] Other Start: 84-21-8552Sjpagfuly encounterAzryan Pisano NephrologyStart: 03-13-2023 End: 12-15-8885txjcxaicapJaiwoxNikyy: 01-25-2023 End: 39-61-9335bxyepgaipfYhoh Bakusamas Other [facility] [employer] Other Start: 04-69-8419Ahnxup outpatient visit 25 minutes Aziz Norris NephrologyStart: 08-15-2022 End: 51-36-5944Wgspglb encounter procedureJanchevy Kaufman DO Work Phone: NeurologyComment on above:MCI (mild cognitive impairment) (Primary Dx)Start: 07-27-2022 End: 44-83-8321rpbhyqxrolQSAZNH H FAWWADFacility:Z0Mhntr: 07-10-2022 End: 26-46-2128oynoircijmUpjj Bakusamas Other [facility] [employer] Other Start: 60-63-0309Audslz outpatient visit 15 minutes Hanna Pisano Nephrology ClydeStart: 07-07-2022 End: 68-57-1946msbppyaqtuQWBN MANDOFacility:M8Nqcgd: 07-03-2022 End: 22-33-6493pzxbgxmltiXiukh ChabanFacility:[facility] Start: 06-26-2022 End: 28-24-7930jiavzemtuzQtdehv Johns Other [facility] [employer] Other Start: 06-41-9575Kkolxspad encounterGleliseo ChoiSUMMIT HEALTHCARE REGIONAL [facility]ENTER Family Medicine [place]Start: 06-05-2022 End: 58-43-2133imctyviqmkYyjok Chaban Other [employer] Other Start: 56-19-0871Hhdcjj outpatient visit 25 minutes Wallacekaren Ira Pulmonary DiseaseStart: 05-29-2022 End: 72-21-9365ykjoifemsvSpcfnr [facility] Other [employer] Other Start: 10-25-3201Qnkzmhehh encounterAnupam [facility] PsychiatryStart: 77-65-9520Xentisifd encounterElsa Prescott Exercise PhysiologistCardiopulmonary & Vascular RehabComment on above:Router Operator Radial - Other (In response to order placed in EPIC)Start: 04-11-2022 End: 70-69-1280Xkkcsca encounter procedureMD Corona Monroe Work Phone: [facility]-Sleep LabStart: 04-10-2022 End: 94-07-2259Xluenai encounter procedureAmanchevy Kaufman DO Work Phone: NeurologyComment on above:Recurrent major depression in partial remission (HCC) (Primary Dx); MCI (mild cognitive impairment)Start: 03-13-2022 End: 61-31-7416icbwcfutoiGyqrts Jha Other [employer] Other Start: 79-90-6583Ircvaecri encounterAnupam [facility] PsychiatryStart: 03-05-2022 End: 64-70-4894fzlmktdomqEefteo Jha Other [employer] Other Start: 25-40-1572Kwnfkvddq encounterAnupam [facility] PsychiatryStart: 02-28-2022 End: 99-05-0864squfciymrzRoqpm Chaban Other [employer] Other Start: 85-55-0196Erpnhndgv encounterCarolynbreanna ChaBanner Referral CoordinatorStart: 02-27-2022 End: 16-68-1844afxokrycrzKlpih Mabel Other noITDatabase [employer] Other Start: 10-03-3004Dkqahh outpatient new 45 minutesCorona CasesoilaSUMMIT HEALTHCARE REGIONAL [facility]ENTER Pulmonary DiseaseStart: 93-42-6381Auhnercab encounterKetiburcio Suazo [facility] [place]kyStart: 02-21-2022 End: 45-66-4960ncnpiwjccmXDPESQ H FAWWADNorth [employer] Other Start: 02-09-2022 End: 68-74-0500otkbyaehklPhfa Fct Lab Main 11 Other Phone: pulmonary MedicineComment on above:SpirometryQuestion regarding MRI BRAIN WO IVCONStart: 02-09-2022 End: 79-84-7996Vqzsdtr encounter procedurePulm Fct Lab Main 11 Other Phone: ccf [facility] MAINStart: 02-08-2022 End: 14-15-7903Doxzjl Flakito Nur MD Work Phone: RADNI HOSPComment on above:Cognitive impairment, mild, so stated (Primary Dx)Shortness of breath (Primary Dx)Cognitive impairment, mild, so stated [G31.84]Start: 60-97-5575Ezquahqsp encounterAnupalexandro JhaFPG PsychiatryStart: 01-29-2022 End: 64-00-3214xnywqhpnjjIrkpv Carnahan Other [employer] Other Start: 96-56-9180Xalsks outpatient visit 15 minutes Cristo SuazoKaiser Permanente Medical CenteryStart: 01-05-2022 End: 54-42-3773mzzdzybxwgKblig Carnahan Other [employer] Other Start: 32-49-3181Gvdmjqzow encounterKetiburcio LambLos Angeles County Los Amigos Medical CenteryStart: 01-01-2022 End: 62-22-1662qtsnhetmuaByzlz Gabriele Other [place] Other Start: 66-99-6360Ohkgdqweh encounterKetiburcio [facility] HospitalyStart: 12-26-2021 End: 86-67-1961lrdgbheggrWxmor Gabriele Other [employer] Other Start: 95-46-6973Vjbpax outpatient visit 25 minutes Cristo Venc[facility] HospitalyStart: 12-22-2021 End: 79-94-5400Svgavoj encounter Lucio Bright MD Work Phone: NeurologyComment on above: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) (Primary Dx); Cognitive impairment, mild, so stated; Depression, unspecified depression typeStart: 12-18-2021 End: 56-34-3768fxrxfwyopwPvuhyl [employer] Other [place] Other Start: 78-94-8671Xjqjkjilr encounterAnupam [facility] PsychiatryStart: 12-06-2021 End: 90-86-6320sfwkvsefqgShqpjg [employer] Other [place] Other Start: 96-21-1284Wmrxibdnb encounterAnupam aF PsychiatryStart: 12-04-2021 End: 19-52-5151uqvuxkqznmKcncv [facility] Other [employer] Other Start: 24-96-7443Srlvdfxqy encounterKetiburcio [facility]encor HospitalyStart: 09-13-2021 End: 72-87-3639qzfsktzwyoRhejyi [employer] Other [place] Other Start: 38-13-2988Dfowwyfnu encounterAnupam [facility] PsychiatryStart: 08-16-2021 End: 58-30-7759vgglhycldkJbram Carnahan Other [employer] Other Start: 29-98-5525Pwnqzmynr encounterCristo SuazoFPG Family Medicine [place]Start: 01-22-9624Mreeyeavv encounterCristo SuazoSUMMIT HEALTHCARE REG[facility]AL [facility] Family Medicine [facility] CenteryStart: 38-03-9764Tcgsvi outpatient visit 25 minutesEssam HermannashiFPG Nephrology Clinic BartonStart: 56-37-5484Otharkpcs encounter Susannah PaulinokarFPG Family Medicine BartonStart: 04-03-2018 End: 43-34-9885Bnjykre encounterORVILLE AMBURNFacility:FTGARDENS [facility] HAWAIIAN GARDENStart: 03-28-2018 End: 79-42-5977Fqunllv encounterORVILLE AMBURNFacility:[facility] Procedures DateProcedureProcedure DetailPerforming ClinicianStart: 75-50-1264WUK NT-PROBNP SERPL-MCNCGeneric External Data ProviderStart: 58-03-8993Ptd routine ecg w/least 12 lds w/i&rDavilee Gant MD Work Phone: Start: 49-08-5984ULB CREATININEGeneric External Data ProviderStart: 48-69-4588[place] ECHO DOPPLER COMPLETEGeneric External Data Provider Start: 60-79-5063XPLWPCTKD BLOOD PRESSUREGeneric External Data ProviderStart: 72-90-0067Atzsq 1995 panel - Serum or PlasmaBill Gant MD Work Phone: Start: 98-32-9781Pakvw panelBrharmeet Coronado CERTIFIED RETINAL ANGIOGRAPHER Work Phone: Start: 19-89-4397Nmbrw 1995 panel - Serum or Plasma Misty Polo PhD Work Phone: Start: 22-08-1149Qs head/brain w/o contrast material uEn Black DO Work Phone: Start: 53-61-2117LA SHOULDER LEFT W/OGeneric External Data ProviderStart: 45-49-1436Uxaex shoulder complete minimum 2 viewsGeneric External Data ProviderStart: 06-78-7354Tmypq shoulder complete minimum 2 views Generic External Data ProviderStart: 24-70-2945Zgrxsmjyq rspse spmtry pre&post- brncdilat Hua Lao MD Work Phone: Start: 78-96-4982DGL 3D POST PROCESSINGDriss Nur MD Work Phone: Start: 36-72-9537Ktk brain brain stem w/o contrast materialSjoslyn Bright MD Work Phone: Start: 29-00-8754Odfpd depression screening assessment Jessie Bright MD Work Phone: Start: 93-63-5347QyvbxyjohkjAtyqqw Fawwad MD Work Phone: History of coronary artery bypass graftingHx of CABG Bill Gant MD Work Phone: History of coronary artery bypass graftingHx of CABG Bill Gant MD Work Phone: Plan of Treatment DateCare ActivityDetailAuthorStart: 99-24-1307Ocvqjalbj for malignant neoplasm of colonNOMS HealthcareStart: 35-05-2092Pfeuu panelLipid ScreeningLouis Stokes Cleveland VA Medical Centertart: 76-18-8103Yqikh panelLipid ScreeningLouis Stokes [facility] VA Medical Centertart: 06-13-5128QKL Vaccine (1 - 1-dose 75+ series)RSV Vaccine (1 - 1-dose 75+ series) [facility] Centertart: 09-72-9343Nmwby BMI ScreeningAdult BMI ScreeningProDiley Ridge Medical Center SystemStart: 89-04-4842Vsrrsoy ScreeningTobacco ScreeningProDiley Ridge Medical Center SystemStart: 64-88-0284Auqwd BMI ScreeningAdult BMI ScreeningProDiley Ridge Medical Center SystemStart: 93-32-6359Jhnkiqi ScreeningTobacco ScreeningProDiley Ridge Medical Center SystemStart: 19-53-2594Aykxlsihuu measurementSerum CreatinineDiley Ridge Medical Center Start: 05-31-2025 End: 90-36-8714Mhrpwni encounter rcjijupze75/20/2025 1:20 PM EDT Office Visit [facility] FM [address] [place] [address] Noa Watson NP [address] [place] [address] NOMS CWM FMStart: 05-02-2025 End: 47-96-4015MR Heart Perfusion W stress and W radionuclide IVNM CARDIAC PERF STRESS/PHARM Radiology Routine Coronary artery disease involving seldovia coronary artery of seld[place]ia heart without angina pectoris Hx of CABG Other emphysema (HCC) ROMAN (dyspnea on exertion) Expected: 05/02/2025 (Approximate), Expires: 05/01/2026[facility] Work Phone: Comment on above:Expected: 05/02/2025 (Approximate), Expires: 05/01/2026Start: 04-16-2025 End: 47-29-7284Brabf metabolic 2000 panel - Serum or PlasmaBASIC METABOLIC PANEL Lab Routine Chronic heart failure with preserved ejection fraction (HCC) Expec dontae: 04/16/2025 (Approximate), Expires: 07/16/2025[facility] Work Phone: Comment on above:Expected: 04/16/2025 (Approximate), Expires: 07/16/2025Start: 04-16-2025 End: 65-26-5718Raurjgq encounter hakwncksi95/05/2025 11:00 AM EDT Office Visit Neurology [address] [place] [address] Nowu Eun Black DO [address] [place], [place] [id number] 6month follow upNeurologyComment on above:6 month follow upStart: 04-15-2025 End: 71-75-2872FTLX DIFFUSION CAPACITY (DLCO)LUNG DIFFUSION CAPACITY (DLCO) PFT Routine Other emphysema (HCC) Expected: 04/15/2025 (Approximate), Expires: 05/01/2026[facility] HospitalComment on above:Expected: 04/15/2025 (Approximate), Expires: 05/01/2026Start: 04-15-2025 End: 86-35-7001QIRK VOLUMESLUNG VOLUMES PFT Routine Other emphysema (HCC) Expected: 04/15/2025, Expires: 05/01/2026[facility] ClinicComment on above: Expected: 04/15/2025, Expires: 05/01/2026Start: 04-15-2025 End: 56-30-1937SEMTHSGJOQ BASELINE ONLYSPIROMETRY BASELINE ONLY PFT Routine Other emphysema (HCC) Expected: 04/15/2025 (Approximate), Expires: 05/01/2026 [facility] CenterComment on above:Expected: 04/15/2025 (Approximate), Expires: 05/01/2026Start: 04-15-2025 End: 32-69-0896LV Chest PA and LateralXR CHEST 2V FRONTAL/LAT Radiology Routine Other emphysema (HCC) Expected: 04/15/2025 (Approximate),Expires: 05/01/2026 [facility] ClinicComment on above:Expected: 04/15/2025 (Approximate), Expires: 05/01/2026Start: 27-70-6654Ehswinpxr [facility] InstituteStart: 03-10-2025 End: 62-40-0631CR Cervical spine WO contrastMR cervical spine without contrast Imaging Routine Cervical spondylosis Expected: 03/10/2025, Expires: 03/10/2026 [facility] Work Phone: Comment on above:Expected: 03/10/2025, Expires: 03/10/2026Start: 03-10-2025 End: 56-56-1400Qquzzhh encounter yxfuwcbbh69/30/2025 9:45 AM EDT Office Visit [facility] [address] [place] [address] Darrick Cannon, PA-C [address] [place] [address] [facility] ClinicStart: 03-01-2025 End: 20-20-0718Bpinivw encounter zyvbzvtkl42/21/2025 1:40 PM EDT Office Visit [facility] [address] [place] [address] Noa Watson, PARI [address] [place] [address] NOMS CWM FMStart: 02-19-2025 End: 24-77-3601Fvnfuvuvj to same day surgery svgsea6002/19/2025 2:58 PM EDT - 02/19/2025 3:07 PM EDT Surgery [facility] [address] [place] [address] Justo Cherry MD [address] [place], [place] [phone] INJECTION FACET JOINT Bilateral C 5/6,6/7 [94494 (CPT )][facility] ProceduresComment on above:INJECTION FACET JOINT Bilateral C 5/6,6/7 [41003 (CPT )]Start: 02-19-2025 End: 88-99-7851Lay dx/ther agt pvrt facet jt crv/thrc 1 levelINJECTION FACET JOINT Cervical spondylosis 02/19/2025 2:58 PM EDTFREMONT PAINStart: 02-19-2025 Subsequent hospital visit by jmnbmekip75/11/2025 2:58 PM EDT Hospital Encounter [facility] [address] [place] [address] Justo Cherry MD [address], [place] [phone] [facility] ProceduresStart: 01-19-2025 End: 11-19-6309Jseqjnd encounter sexamqkqc71/10/2025 1:00 PM EDT Office Visit [facility] [address] [place] [address] Noa Watson NP [address] [place] [address] [facility] FMStart: 01-07-2025 End: 66-82-0694WT Cervical spine 2 or 3 ViewsXR cervical spine 2 or 3 views Imaging Routine Neck pain Expected: 01/07/2025 (Approximate), Expires: 01/07/2026[facility] Work Phone: Comment on above:Expected: 01/07/2025 (Approximate), Expires: 01/07/2026Start: 11-19-2024 End: 06-04-4568Tqofctb encounter procedureNOMS [facility] FMComment on above:Chronic obstructive pulmonary disease, unspecified COPD type (CMS/HCC) (Primary Dx); Coronary artery disease involving seld[place]ia coronary artery of [place] heart without angina pectoris (CMS/HCC); Atherosclerosis of arteries of extremities (CMS/HCC); Primary hypertension (CMS/HCC); Gastroesophageal reflux disease without esophagitis; Chronic kidney disease, stage 4 (severe) (CMS/HCC); EDITH (generalized anxiety disorder) (CMS/HCC)Start: 09-16-2024 End: 51-89-4353Jljvlyq encounter tegrnvlqg49/05/2025 1:00 PM EST Office Visit [facility] [address] [place] [phone] Jayy Coronado NP [address] [place] [address] [facility] FMStart: 53-06-7088Moezgvp Directive Discussion Advance Directive DiscussionLouis Stokes Cleveland VA Medical Centertart: 01-01-2025Medicare Advantage Annual Wellness VisitMedicare Advantage Annual Wellness VisitDiley Ridge Medical Center Start: 06-30-2024 End: 16-75-6737twtnxuioxm55/19/2024 11:30 AM EST Evaluation [facility] PT [address] [place] [address] Babak Aquino, PT [address] [place] [address] [facility] FB PTStart: 06-17-2024 End: 14-85-6188Ihyei 1996 panel - Serum or PlasmaLipid panel Lab Routine Primary hypertension (CMS/HCC) Expected: 06/17/2024 (Approximate), Expires:06/17/2025 [facility] HealthcareComment on above:Expected: 06/17/2024 (Approximate), Expires: 06/17/2025Start: 06-10-2024 End: 15-29-0358Wwbaqah encounter procedureNOMS CW FMComment on above:Arrived Start: 81-78-6235Azmvlxvx ScreeningDiabetes ScreeningLouis Stokes Cleveland VA Medical Centertart: 05-12-2024 End: 54-92-4296Fxoshyc encounter sawbqrpgl51/01/2024 7:45 AM EDT Appointment Radiology [address] [place] [address] ct wo contrast RadiologyComment on above:ct wo contrastStart: 81-92-8512Hfznv-19 Vaccine ( season)Covid-19 Vaccine ( season)[facility] Centertart: 60-99-7872Refecnuhc vaccinationInfluenza Vaccine (#1)[facility] Centertart: 12-24-2023 End: 57-05-4710Uitbahk encounter cjuqhhrfa95/14/2024 1:15 PM EDT Office Visit [facility] [address] [place] [address] Shaikh Grimes MD [address] [place] [address] [facility] CWM IMStart: 09-19-2023 End: 62-87-2229CWJ W Auto Differential panel - BloodCBC and differential Lab Routine Recurrent major depression in partial remission (HCC) [place] [facility]/HCC) CKD (chronic kidney disease) stage 4, GFR 15-29 ml/min (CMS/[facility]) Coronary artery disease involving s[place] coronary artery of s[place]ovia heart without angina pectoris ([facility]) Primary hypertension ([facility])Expected: 09/19/2023 (Approximate), Expires: 09/19/2024[facility] Work Phone: Comment on above:Expected: 09/19/2023 (Approximate), Expires: 09/19/2024Start: 09-19-2023 End: 12-18-6497Tojweqiohudhk metabolic 2000 panel - Serum or PlasmaComprehensive metabolic panel Lab Routine Recurrent major depression in partial remission (HCC) ([facility]) CKD (chronic kidney disease) stage 4, GFR 15-29 ml/min ([facility]) Coronary artery disease involving seldovia coronary artery of seld[place]ia heart without angina pectoris ([facility]) Primary hypertension ([facility]) Expected: 09/19/2023 (Approximate), Expires: 09/19/2024[facility] HealthcareComment on above:Expected: 09/19/2023 (Approximate), Expires: 09/19/2024Start: 09-19-2023 End: 22-54-2386Exhtwenmfz [Mass/volume] in UrineCreatinine, urine, random Lab Routine CKD (chronic kidney disease) stage 4, GFR 15-29 ml/min ([facility]) Expected: 09/19/2023 (Approximate), Expires: 09/19/2024[facility] HealthcareComment on above:Expected: 09/19/2023 (Approximate), Expires: 09/19/2024Start: 09-19-2023 End: 33-21-5163Xcgld 1996 panel - Serum or PlasmaLipid panel Lab Routine Other hyperlipidemia ([facility]) Expected: 09/19/2023 (Approximate), Expires:09/19/2024 [facility] HealthcareComment on above:Expected: 09/19/2023 (Approximate), Expires: 09/19/2024Start: 09-19-2023 End: 95-35-5490Ahpzavv, urine, randomProtein, urine, random Lab Routine CKD (chronic kidney disease) stage 4, GFR 15-29 ml/min ([facility]/HCC)Expected: 09/19/2023 (Approximate), Expires: 09/19/2024[facility] HealthcareComment on above:Expected: 09/19/2023 (Approximate), Expires: 09/19/2024Start: 48-09-0090Bsffzcb Directive DiscussionAdvance Directive DiscussionLouis Stokes Cleveland VA Medical Centertart: 96-31-2196Mjiyehqzn vaccinationInfluenza Vaccine (#1)[facility] HealthcareStart: 91-36-4232Rkqew depression screening assessmentDEPRESSION SCREENINGLouis Stokes [facility] Medical Centertart: 85-97-6100GAMRPQP DIRECTIVE DISCUSSIONADVANCE DIRECTIVE DISCUSSIONLouis Stokes [facility] Medical Centertart: 57-64-7221Fcgicmgen vaccinationINFLUENZA (#1)[facility] Centertart: 02-09-2022 End: 44-68-8493QOKSYNTAPZ WITH DILATOR IF OBSTRUCTEDMercy Health St. [facility] Work Phone: comment on above:Expected: 02/09/2022, Expires: 03/10/2023Start: 12-22-2021 End: 71-36-1443TZUIZQIP TOTAL W/REFLEXSYPHILIS TOTAL W/REFLEX Lab Routine Cognitive impairment, mild, so stated 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) Depression, unspecified depression type Expected: 12/22/2021, Expires: 02/21/2022[facility] Work Phone: comment on above:Expected: 12/22/2021, Expires: 02/21/2022tart: 12-22-2021 End: 20-85-5451Gcwilpvrimc [Units/volume] in Serum or PlasmaTSH BLD Lab Routine Cognitive impairment, mild, so stated Dementia due to medical condition with beh avioral disturbance (HCC) Depression, unspecified depression type Expected: 12/22/2021, Expires: 02/21/2022[facility] Work Phone: comment on above:Expected: 12/22/2021, Expires: 02/21/2022tart: 12-22-2021 End: 16-87-1068MCGIDAO B12 BLOODVITAMIN B12 BLOOD Lab Routine Cognitive impairment, mild, so stated 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) Depression, unspecified depression type Expected: 12/22/2021, Ex[facility]: [facility] Work Phone: comment on above:Expected: 12/22/2021, Expires: 02/21/2022tart: 29-16-3412RHNZR-19 VACCINE (4 - Booster for Pfizer series) COVID-19 VACCINE (4 - Booster for Pfizer series)[facility]art: 99-71-2195SVCZS-19 VACCINE (4 - Booster for Pfizer series)COVID-19 VACCINE (4 - Booster for Pfizer series)[facility] Centertart: 23-85-9607UOINVCJ DIRECTIVE DISCUSSIONADVANCE DIRECTIVE DISCUSSIONCleParma Community General Hospitaltart: 23-29-6129Ufve Risk ScreeningFall Risk ScreeningProDiley Ridge Medical Center SystemStart: 2018 PNEUMOCOCCAL: 65+ (1 - PCV)PNEUMOCOCCAL: 65+ (1 - PCV)[facility]ertart: 63-06-7276RYYTDHOFN AGE 65 AND OVER WITH 5YR LOOKBACK (#1)PNEUMOVAX AGE 65 AND OVER WITH 5YR LOOKBACK (#1)[facility] Centertart: 93-00-7658CHR Vaccine (1 - Risk 60-74 years 1-dose series)RSV Vaccine (1 - Risk 60-74 years 1-dose series) [facility]ertart: 54-36-8457QXPYLEBA CANCER SCREENING DISCUSSIONPROSTATE CANCER SCREENING DISCUSSIONCleParma Community General Hospitaltart: 50-67-9974Yvogickodzjfsy of varicella zoster vaccineZoster (Shingles) Vaccine (1 of 2)[facility] SystemStart: 81-77-2418OFUTAABB VACCINE (1 of 2)SHINGRIX VACCINE (1 of 2) [facility] Centertart: 01-34-9042LXWCOSRHD (FIT-DNA)COLOGUARD (FIT-DNA)[facility] Centertart: 87-07-1077NdwtlastpxwJKKKAMXJRBTOtiswrxyu ClinicStart: 1998 COLORECTAL CANCER SCREENINGCOLORECTAL CANCER SCREENINGLouis Stokes [facility] Centertart: 33-84-3658JO COLONOGRAPHYCT COLONOGRAPHYCleParma Community General Hospitaltart: 1998 DIABETES SCREENDIABETES SCREENCleParma Community General Hospitaltart: 79-39-1141GUFSB OCCULT BLOODFECAL OCCULT BLOODLouis Stokes Cleveland VA Medical Centertart: 75-38-0826Rxlzrndkj for malignant neoplasm of colonLouis Stokes Cleveland VA Medical Centertart: 75-19-0982YKFARJOIOHSUAAAPPHNWMNDFII [facility]ertart: 28-03-7939Jmboy panelLipid ScreeningDiley Ridge Medical Center Start: 77-52-5205YSZZB SCREENLIPID SCREENLouis Stokes Cleveland [facility] Medical Centertart: 1972 DTaP,Tdap and Td Vaccines (1 - Tdap)DTaP,Tdap and Td Vaccines (1 - Tdap) [facility] Pinevilletart: 70-36-3691Hukbg microalbumin profileLouis Stokes Cleveland VA Medical Centertart: 82-16-3044Mdhlf BMI Follow Up PlanAdult BMI Follow Up PlanAtrium Health Pinevilletart: 84-33-7545Kwninn PCP Team Chronic Disease VisitAnnual PCP Team Chronic Disease VisitLouis Stokes Cleveland VA Medical Centertart: 84-10-4027Okotxkx Screening Anxiety ScreeningLouis Stokes Cleveland VA Medical Centertart: 85-74-4579Svqksiibj B surface antibody levelLDL CholesterolLouis Stokes Cleveland VA Medical Centertart: 48-56-5859VEVMDINCX C SCREENING HEPATITIS C SCREENINGLouis Stokes Cleveland VA Medical Centertart: 97-03-5285Gbhoarujd C screening Hepatitis C ScreeningLouis Stokes Cleveland VA Medical Centertart: 14-00-9882Fkidkenuac Screening Depression ScreeningAtrium Health Pinevilletart: 1953Medicare Annual Wellness (AWV)Medicare Annual Wellness (AWV)[facility] HealthcareStart: 1955 Screening for malignant neoplasm of colonAL[facility] VIEW [facility]ITAL HealthcareStart: 27-40-0701Wfxtmsk CounselingTobacco CounselingCommunity Memorial HospitalCBC W Auto Differential panel - BloodCBC and differential Lab Routine Primary hypertension (CMS/HCC) Ordered: 06/17/2024[facility] Work Phone: Comment on above:Ordered: 06/17/2024omprehensive metabolic 2000 panel - Serum or PlasmaComprehensive metabolic panel Lab Routine Primary hypertension (CMS/HCC) Ordered: 06/17/2024[facility] HospitalComment on above:Ordered: 06/17/2024 End: 53-73-6610PL Head WO contrastCT BRAIN WO IVCON Radiology Routine Memory loss 1 Occurrences starting 05/04/2024 until [facility] Work Phone: Comment on above:1 Occurrences starting 05/04/2024 until 06/03/2025 End: 23-00-4963Auc brain brain stem w/o contrast materialMRI BRAIN WO IVCON Radiology Routine Cognitive impairment, mild, so stated 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) Depression, unspecified depression type 1 Occurrences starting 12/22/2021 until 01/21/2023[facility] Work Phone: comment on above:1 Occurrences starting 12/22/2021 until 01/21/2023Renal function 2000 panel - Serum or PlasmaUc Medical CenterRenal function 1999 panel - Serum or [facility] CenterRenal function 1999 panel - Serum or [facility] Immunizations Immunization DateImmunizationNotesCare MswjosxlOahjybze45-11-5628SVBZT-77 Vaccine Pfizer - Documentation Purposes OnlyCorona Monroe Other [place] Other 10-580461-61-1260uvhyixtfl, high dose seasonal, preservative-freeSusannah Nevarez Other [place] Other 10-433622-95-0107Zpzlowqhf, High-dose Seasonal, Quadrivalent, Preservative FreeShaikh Cornelio LEMON Work Phone: [facility]itan HospitalGrlwzqojxd88-28-9305kajijzjhb virus vaccine, unspecified formulationSselene Grimes MD Work Phone: [facility]03-30-2021COVID-19 PfizerSusannah Nevarez Other [place] Other 03-588912-78-7585QFETC-22 Vaccine Pfizer - Documentation Purposes OnlySusannah Nevarez Other [place] Other 12966026-79-9801ymrtxxofq, high dose seasonal, preservative-freeSusannah Nevarez Other no[employer] Other 1759666-58-4497jsawewpazusk polysaccharide vaccine, 23 valentSusannah Nevarez Other noITDatabase [employer] Other 12-462916-11-5979dqozfwcak virus vaccine, unspecified formulationUc Medical Center12-23-2020Influenza, High-dose Seasonal, Quadrivalent, Preservative Kofi Grimes MD Work Phone: [facility] HospitalIfwuyxlijq73-00-8747oorbaldjbrnh conjugate vaccine, 13 valentSusannah Nevarez Other noSocialite Other Payers DatePayer CategoryPayerPolicy [id number] (Managed Care) [id number] 2025Medicare [place] [id number] 2024MedicaidAETNA MEDICARE ADVANTAGE [id number] Health [facility] [id number]-qse [id number] BLUE ACCESS PPO [id number] 2020-Present [phone] [address] [place] [address] PPO [id number] MedicareMEDICARE MEDICARE A AND B [id number] 2015-Present [phone] [place] [address] [id number] [id number] 2016Medicare 1.2.840.180571.1.13.159.2.7.3.[id number] 2.16.840.1.633752.3.57[id number] 2.16.840.1.202398.3.57[id number] 2.16.840.1.325152.3.57[id number] 2.16.840.1.097116.3.579.[id number] 2..840.1.088081.3.57[id number] 2..840.1.165904.3.57[id number] 2.840.1.430069.3.579.2.[id number] 2..840.1.356818.3.57[id number] 2..840.1.775062.3.57[id number] 2..840.1.841170.3.579.[id number] 2..840.1.080460.3.579.2.7[id number] 2..840.1.405819.3.57[id number] 2.16.840.1.567329.3.57[id number] 2.16.840.1.010041.3.579.[id number] 2..840.1.900708.3.57[id number] 2.16.840.1.571462.3.57[id number] 2..840.1.339886.3.57[id number] 2..840.1.501656.3.57[id number] 2..840.1.674101.3.579.2.2[id number] 2.840.1.186741.3.579.2.7[id number] 2.0.1.154951.3.579.2.657291-08-5362Oqew Cross Blue [id number] 2..9.139934.[id number] 2..2.406459.8387-01-1900 Private Health [id number]-[id number] [id number] 8n5kd194-p1a7-3312-82vw-[id number] 2.0.1.398[id number] 2..1.751325.3.579.2.531 Social History DateTypeDetailFacilityStart: 12-22-2021 End: 43-44-3028Gnlnqsp smoking status NHISNever smoked tobaccoDiley Ridge Medical Center Start: 12-22-2021 End: 67-20-9755Cysuobx use and exposureUser of smokeless tobaccoDiley Ridge Medical Center End: 67-10-4869Abyrrup of tobacco useChews TobaccoLouis Stokes Cleveland VA Medical Centertart: 61-01-8653Fox Assigned At BirthNot on fileLouis Stokes Cleveland VA Medical Centertart: 12-12-2021 End: 11-11-4977Qsvuyorc to SARS-CoV-2 (event)Not sureLouis Stokes Cleveland VA Medical Centertart: 07-22-2023 End: 14-73-9429Cmm Assigned At [facility] HealthcareStart: 09-30-2020 End: 19-99-0448Alztccn smoking status NHISEx-smoker (finding)[facility]ertart: 11-99-3396Kwa [facility]igned [facility] Hospitaltart: 67-50-6944Eluaysc use and exposureFormer smokeless tobacco userDiley Ridge Medical CenterHistory of tobacco useCurrent smokerNOVA HealthcareHistory of tobacco useCigarette SmokerAL[facility] HealthcareStart: 07-12-2023 End: 46-09-7277Hoxbqww use and exposureSmokeless tobacco non-userNOVA Healthcare Start: 07-12-2023 End: 58-85-4818Karfuzj intakeLifetime non-drinker (finding)[facility] HealthcareStart: 07-22-2023 End: 73-44-6926Utyelwd of Social functionNOMS HealthcareWithin the last year, have you been afraid of your partner or ex-partner?NoNOMS HealthcareAre you now , , , , never or living with a partner? MarriedNOMS HealthcareHow often to you have a drink containing alcohol?NeverNOMS HealthcareStart: 12-05-2021 End: 68-51-5765Fpg many standard drinks containing alcohol do you have on a typical day?Patient does not drinkNOMS HealthcareHow hard is it for you to pay for the very basics like food, housing, medical care, and heatingSomewhat hard [facility] HealthcareDo you feel stress - tense, restless, nervous, or anxious, or unable to sleep at night because yourmind is troubled all the time - these days [OSQ]Very muchNOMS Healthcare(I/We) worried whether (my/our) food would run out before (I/we) got money to buy more.Never trueNOVA HealthcareStart: 07-12-2023 Alcohol Commentcaffeine: 1-2 cups per daySamaritan HospitalStart: 10-02-2019 End: 45-71-2196WbjMmel (finding)[facility] CenterHow often do you need to have someone help you when you read instructions, pamphlets, or other written material from your doctor or pharmacy [SILS]SometimesNOMS HealthcareAre you now , , , , never or living with a partner?SeparatedAL[facility]IEW [facility]OSPITAL HealthcareHow hard is it for you to pay for the very basics like food, housing, medical care, and heatingNot very hardNOVA HealthcareDo you feel stress - tense, restless, nervous, or anxious, or unable to sleep at night because yourmind is troubled all the time - these days [OSQ]To some extentSamaritan HospitalStart: 90-95-0764Eslamowqt beverage intakeEx-drinker (finding)[facility] Medical CenterNEGATED: Highlighted rowStart: NINFHistory of tobacco usePassive smokerSamaritan Hospital Medical Equipment Procedure CodeEquipment CodeEquipment Original TextEquipment IdentifierDates Repair, hernia, umbilicalAbdominal hernia surgical mesh, composite-polymer ()[id number] FDAStart: 09-30-2020 Goals DatePatient GoalDesired Activity/StatePersonal health goal Functional Status VvasKuxhrusbqrFehykdYgjwwqry62-34-3279Yrm often do you have a drink containing alcohol?Never 02/28/2025 4:11 PM EDT Mychart, Generic NeverSamaritan Hospital 31-89-3395Rkwyyiaigi statusPatient does not drink 02/28/2025 4:11 PM EDT NeurogesXhart, Generic Patient does not drinkSamaritan HospitalUciyzmligp41-40-1803Lvdwbkm Health Questionnaire 2 item (PHQ-2) [Reported][facility] Clinical Notes 05-23-2021 to 06-19-2025 Note Date & CvtzKofqRkqyxpvs51-39-1016 Note Attestation signed by Italo Lyles MD at 06/20/2025 8:50 PM I saw the patient with the resident. I agree with the above findings. No evidence of cellulitis. No evidence of infection. We are applying peel and place negative for pressure. Will discharge the patient on antibiotics see him in 1 week as follow-up. [facility] Vascular and Wound Surgery DAILY PROGRESS NOTE Subjective No acute events overnight. Objective Vitals: Vitals: 06/19/25 1022 BP: 109/57 Pulse: 72 Resp: Temp: SpO2: I/O last 3 completed shifts: In: 50 (0.7 mL/kg) [IV Piggyback:50] Out: - (0 mL/kg) Weight: 74.7 kg No intake/output data recorded. Physical Exam Physical Exam Constitutional: Appearance: Normal appearance. HENT: Head: Normocephalic and atraumatic. Cardiovascular: Rate and Rhythm: Normal rate and regular rhythm. Abdominal: General: There is no distension. Palpations: Abdomen is soft. Tenderness: There is no abdominal tenderness. Skin: General: Skin is warm and dry. Comments: Wound vac in place over incisions Neurological: General: No focal deficit present. Mental Status: He is alert and oriented to person, place, and time. Mental status is at baseline. Psychiatric: Mood and Affect: Mood normal. Behavior: Behavior normal. Thought Content: Thought content normal. Labs: Results from last 7 days Lab Units 06/18/25 0507 06/17/25 0431 06/16/25 0508 06/15/25 1937 WBC AUTO 10*3/uL 4.32 3.91* 3.85* 3.95* HEMOGLOBIN g/dL 8.3* 8.2* 8.2* 8.5* HEMATOCRIT % 26.0* 26.3* 26.5* 26.0* PLATELETS AUTO 10*3/uL 159 152 146* 149* Results from last 7 days Lab Units 06/18/25 0507 06/17/25 0431 06/16/25 0508 06/15/25 1937 SODIUM mmol/L 140 139 139 135* POTASSIUM mmol/L 4.5 4.1 4.1 3.9 CO2 mmol/L 21 21 24 24 BUN mg/dL 26* 26* 27* 29* CREATININE mg/dL 1.57* 1.76* 1.70* 1.99* Medications: amLODIPine, 5 mg, oral, BID aspirin, 81 mg, oral, q AM atorvastatin, 80 mg, oral, Nightly buPROPion XL, 300 mg, oral, q AM busPIRone, 15 mg, oral, BID clopidogrel, 75 mg, oral, Daily doxycycline, 100 mg, oral, BID influenza, 0.5 mL, intramuscular, During hospitalization metoprolol tartrate, 50 mg, oral, BID OLANZapine, 5 mg, oral, Nightly rivaroxaban, 2.5 mg, oral, BID sertraline, 200 mg, oral, Daily sodium zirconium cyclosilicate, 10 g, oral, Once per day on Saturday sulfamethoxazole-trimethoprim, 160 mg of trimethoprim, oral, q12h traZODone, 100 mg, oral, Nightly Imaging: CT head wo IV contrast Narrative: CT HEAD WO IV CONTRAST HISTORY: Head injury, pain, fall COMPARISON: None TECHNIQUE: * CT brain without intravenous contrast. Automated exposure control was utilized. * All CT scans at this facility use dose modulation, iterative reconstruction, and/or weight based dosing when appropriate to reduce radiation dose to as low as reasonably achievable. FINDINGS: No shift of midline structures, mass effect, acute intracranial hemorrhage, or evidence of acute large vessel ischemia/infarct. The cerebral volume, ventricles, cisterns, and sulci are normal for patient age. Visualized intraorbital contents and the infratemporal soft tissues show no acute abnormality. The visualized paranasal sinuses and mastoid air cells are clear. Vascular calcifications are visualized. Impression: * No acute intracranial findings by CT. Approved by:Eliud Kline06/15/2025 8:13 PM. I, Harsh Andrade MD,have reviewed the image(s) and agree with the findings in this report. Electronically signed: Harsh Andrade MD. Active Inpatient Problems Principal Problem: Cellulitis Vascular/Wound Care Assessment/Plan Kel Castillo is a 70 y.o. White male with PMH of PAD, CAD, COPD, dyslipidemia and recent right fem to above knee pop bypass with graft on 06/07 who presents with erythema and drainage from surgical incision. There is surgical wound dehiscence but no infection. Patient was seen and examined today at bedside by Dr. Lyles after reviewing the patient's lab results and imaging. Plan was discussed with Dr. Lyles, and current plan is as follows: Continue wound vac, will DC with wound vac Regular diet Bactrim at discharge Patient medically ready for discharge, awaiting wound vac delivery Paradise Freeman MD General Surgery Resident, PGY-3 Vascular/Wound Service Please direct primary wound calls to: [phone] Please direct primary vascular calls to: [phone] This note was created with the assistance of a speech-recognition program. While intending to generate a document that accurately reflects the content of the encounter, no guarantee can be provided that every mistake has been identified and corrected by editing '[facility]11-08-2025 Note [facility] checked [employer] portal for Ready Care vac approval, however, no updates have been made to patients account. [facility] had emailed back and forth with [employer] it support analyst 06/18/25 regarding Ready Care vac approval as patient is medically ready for hospital discharge. Last email sent to [employer] it support analyst has gone unanswered. [facility] has re-ordered Ready Care Vac, and re-uploaded necessary documentation to assist in approval. [facility] will continue to check [employer] portal for approval, and provide updates as able. 1230: Primary RN requested update on Ready Vac approval. [facility] attempted to call [place] [employer] Rep, Breanne, but did not receive answer. [facility] called [employer] directly to inquire about Ready Care Vac approval. [employer] rep, Guillermo, stated that he sees that everything has been uploaded, and that someone will be working on the case as soon as possible. Guillermo stated that on the weekends when staffing is system support administrator, their computerized system does not automatically assign cases for review/approval. Guillermo stated that he will push this case to a rubber tubing backer for review and approval, and will have the rubber tubing backer contact [facility] once updates are available. Guillermo also stated that this process can take up to 3 hours. [facility] reiterated that all necessary documentation was submitted both via fax, and via online portal on 06/18/25, and that the patient has been medically ready for hospital discharge since 06/18/25. Guillermo stated that he would do his best to get this taken care of as soon as possible. Update provided to Primary RN. [facility] will continue to follow. 1258: Received call from [employer] Rep Ian regarding Ready Vac approval. Ian has stated that Ready Vac has been approved, and she will order patients home supplies for shipment. [facility] ordered Ready Care Vac from [employer] based on available Ready Care Vac listed on [employer] website. Primary RN notified. [facility]11-07-2025 NotePt selected [facility] for [facility] and AVS was sent. Family was notified of discharge today. Awaiting wound vac placement for discharge.[facility]11-06-2025 Note Attestation signed by Italo Lyles MD at 06/20/2025 8:49 PM I saw the patient with the resident. There is dehiscence of the right groin wound. No evidence of infection. The discharge is yellow discharge serous clear. No cellulitis present around the groin. No infection identified. Patient has good pulses distally. No dehiscence in the lower wound. No significant swelling of either leg. Will continue the patient on IV antibiotics. And will cover the wound with Betadine and a dressing. [facility] Vascular and Wound Surgery DAILY PROGRESS NOTE Subjective Patient seen and examined at bedside by the vascular surgery team. No acute events overnight. Vital signs stable. Currently on Cefepime and Vanco. Objective Vitals: Vitals: 06/17/251949 BP: 114/71 Pulse: 76 Resp: 14 Temp: 35.7 ???C (96.3 ???F) SpO2: 98% I/O last 3 completed shifts: In: 410 (5.3 mL/kg) [P.O.:360; IV Piggyback:50] Out: 125 (1.6 mL/kg) [Urine:125 (0 mL/kg/hr)] Weight: 76.8 kg No intake/output data recorded. Physical Exam Physical Exam Constitutional: Appearance: Normal appearance. HENT: Head: Normocephalic and atraumatic. Cardiovascular: Rate and Rhythm: Normal rate and regular rhythm. Abdominal: General: There is no distension. Palpations: Abdomen is soft. Tenderness: There is no abdominal tenderness. Skin: General: Skin is warm and dry. Comments: Right groin and right thigh surgical site dehiscence. Mild erythema Neurological: General: No focal deficit present. Mental Status: He is alert and oriented to person, place, and time. Mental status is at baseline. Psychiatric: Mood and Affect: Mood normal. Behavior: Behavior normal. Thought Content: Thought content normal. Labs: Results from last 7 days Lab Units 06/17/2543006/16/2550706/15/251936 WBC AUTO 10*3/uL 3.91* 3.85* 3.95* HEMOGLOBIN g/dL 8.2* 8.2* 8.5* HEMATOCRIT % 26.3* 26.5* 26.0* PLATELETS AUTO 10*3/uL 152 146* 149* Results from last 7 days Lab Units 06/17/2543006/16/25 05006/15/251936 SODIUM mmol/L 139 139 135* POTASSIUM mmol/L 4.1 4.1 3.9 CO2 mmol/L 21 24 24 BUN mg/dL 26* 27* 29* CREATININE mg/dL 1.76* 1.70* 1.99* Medications: amLODIPine, 5 mg, oral, BID aspirin, 81 mg, oral, q AM atorvastatin, 80 mg, oral, Nightly buPROPion XL, 300 mg, oral, q AM busPIRone, 15 mg, oral, BID cefepime, 1 g, intravenous, q8h clopidogrel, 75 mg, oral, Daily influenza, 0.5 mL, intramuscular, During hospitalization metoprolol tartrate, 50 mg, oral, BID OLANZapine, 5 mg, oral, Nightly rivaroxaban, 2.5 mg, oral, BID sertraline, 200 mg, oral, Daily sodium zirconium cyclosilicate, 10 g, oral, Once per day on Saturday traZODone, 100 mg, oral, Nightly Imaging: CT head wo IV contrast Narrative: CT HEAD WO IV CONTRAST HISTORY: Head injury, pain, fall COMPARISON: None TECHNIQUE: * CT brain without intravenous contrast. Automated exposure control was utilized. * All CT scans at this facility use dose modulation, iterative reconstruction, and/or weight based dosing when appropriate to reduce radiation dose to as low as reasonably achievable. FINDINGS: No shift of midline structures, mass effect, acute intracranial hemorrhage, or evidence of acute large vessel ischemia/infarct. The cerebral volume, ventricles, cisterns, and sulci are normal for patient age. Visualized intraorbital contents and the infratemporal soft tissues show no acute abnormality. The visualized paranasal sinuses and mastoid air cells are clear. Vascular calcifications are visualized. Impression: * No acute intracranial findings by CT. Approved by:Eliud Kline06/15/2025 8:13 PM. I, Harsh Andrade MD,have reviewed the image(s) and agree with the findings in this report. Electronically signed: Harsh Andrade MD. Active Inpatient Problems Principal Problem: Cellulitis Vascular/Wound Care Assessment/Plan Kel Castillo is a 70 y.o. White male with PMH of PAD, CAD, COPD, dyslipidemia and recent right fem to above knee pop bypass with graft on 06/07 who presents with erythema and drainage from surgical incision. Patient's case, imaging, and labs were reviewed by and discussed with Dr. Lyles, and after thorough discussion, the plan for the patient is as follows: There is surgical wound dehiscence. There is no expressible drainage from these sites today. Topical therapy Over right thigh and right groin: Adaptic, betadine soaked gauze, dry dressing daily Regular diet Follow up wound cultures Home meds resumed Will return home at [place] Oziel Calixto MD General Surgery Resident, PGY-1 Vascular/Wound Service Please direct primary wound calls to: [phone] Please direct primary vascular calls to: [phone] (more content not included)... [facility]11-05-2025 NoteVancomycin Timed Date/Time Value Ref Range Status 06/16/2025 09:11 PM 8.7 (L) 20.0 - 40.0 Final Level 24 hours s/p LD is 8.7. This is most likely d/t distribution phase after the first dose. Today Scr 1.7. Will plan to give 750 mg now and check level in the AM 10/ @ 0500. Expect it to be around 13-16 mcg/mL. Wound cx swap growing E cloaecae. BCX NGTD. Cefepime should cover E cloaecae. Please follow up to de-escalate once BCX negative for 48 hours and no gram positive growing.[facility]11[facility] DAILY PROGRESS NOTE Subjective Patient seen and examined at bedside. No acute events overnight. Vital signs stable. Currently on Cefepime and Vanco. Objective Vitals: Vitals: 06/16/25 1546 BP: 109/59 Pulse: 62 Resp: Temp: 36.8 ???C (98.2 ???F) SpO2: 97% I/O last 3 completed shifts: In: 350 (4.6 mL/kg) [IV Piggyback:350] Out: 600 (7.9 mL/kg) [Urine:600 (0.2 mL/kg/hr)] Weight: 76.2 kg I/O this shift: In: 50 [IV Piggyback:50] Out: 125 [Urine:125] Physical Exam Physical Exam Constitutional: Appearance: Normal appearance. HENT: Head: Normocephalic and atraumatic. Cardiovascular: Rate and Rhythm: Normal rate and regular rhythm. Abdominal: General: There is no distension. Palpations: Abdomen is soft. Tenderness: There is no abdominal tenderness. Skin: General: Skin is warm and dry. Comments: Right groin and right thigh surgical site dehiscence. Mild erythema Neurological: General: No focal deficit present. Mental Status: He is alert and oriented to person, place, and time. Mental status is at baseline. Psychiatric: Mood and Affect: Mood normal. Behavior: Behavior normal. Thought Content: Thought content normal. Labs: Results from last 7 days Lab Units 06/16/25 0508 06/15/25 1937 WBC AUTO 10*3/uL 3.85* 3.95* HEMOGLOBIN g/dL 8.2* 8.5* HEMATOCRIT % 26.5* 26.0* PLATELETS AUTO 10*3/uL 146* 149* Results from last 7 days Lab Units 06/16/25 0508 06/15/25 1937 SODIUM mmol/L 139 135* POTASSIUM mmol/L 4.1 3.9 CO2 mmol/L 24 24 BUN mg/dL 27* 29* CREATININE mg/dL 1.70* 1.99* Medications: amLODIPine, 5 mg, oral, BID aspirin, 81 mg, oral, q AM atorvastatin, 80 mg, oral, Nightly buPROPion XL, 300 mg, oral, q AM busPIRone, 15 mg, oral, BID cefepime, 1 g, intravenous, q8h clopidogrel, 75 mg, oral, Daily influenza, 0.5 mL, intramuscular, During hospitalization metoprolol tartrate, 50 mg, oral, BID OLANZapine, 5 mg, oral, Nightly rivaroxaban, 2.5 mg, oral, BID sertraline, 200 mg, oral, Daily sodium zirconium cyclosilicate, 10 g, oral, Once per day on Saturday traZODone, 100 mg, oral, Nightly vancomycin intermittent dosing, 1 each, Does not apply, RX Placeholder Imaging: CT head wo IV contrast Narrative: CT HEAD WO IV CONTRAST HISTORY: Head injury, pain, fall COMPARISON: None TECHNIQUE: * CT brain without intravenous contrast. Automated exposure control was utilized. * All CT scans at this facility use dose modulation, iterative reconstruction, and/or weight based dosing when appropriate to reduce radiation dose to as low as reasonably achievable. FINDINGS: No shift of midline structures, mass effect, acute intracranial hemorrhage, or evidence of acute large vessel ischemia/infarct. The cerebral volume, ventricles, cisterns, and sulci are normal for patient age. Visualized intraorbital contents and the infratemporal soft tissues show no acute abnormality. The visualized paranasal sinuses and mastoid air cells are clear. Vascular calcifications are visualized. Impression: * No acute intracranial findings by CT. Approved by:Eliud Kline06/15/2025 8:13 PM. I, Harsh Andrade MD,have reviewed the image(s) and agree with the findings in this report. Electronically signed: Harsh Andrade MD. Active Inpatient Problems Principal Problem: Cellulitis Vascular/Wound Care Assessment/Plan Kel Castillo is a 70 y.o. White male with PMH of PAD, CAD, COPD, dyslipidemia and recent right fem to above knee pop bypass with graft on 06/07 who presents with erythema and drainage from surgical incision. There is surgical wound dehiscence. There is no expressible drainage from these sites today. Topical therapy Over right thigh and right groin: Adaptic, betadine soaked gauze, dry dressing daily Regular diet Follow up wound cultures Home meds resumed Will return home at [place] Will Keys PA-C Vascular/Wound Service Please direct primary wound calls to: [phone] Please direct primary vascular calls to: [phone] This note was created with the assistance of a speech-recognition program. While intending to generate a document that accurately reflects the content of the encounter, no guarantee can be provided that every mistake has been identified and corrected by editing ' Inpatient consult to Vascular Surgery Consult performed by: Will Keys PA-C Consult ordered by: KAT [facility] 06-16-2025 Note06/16/25 6467 Admission Assessment Questions Verify insurance with patient Yes Do you understand medical disease or what brought you into the hospital? Yes Who is your current PCP? Noa Watson Can I schedule a follow up appointment for you at the time of discharge? No Does patient qualify for Complex Care Management Enrollment? No Do you understand why you are taking your current medications? Yes Are you taking your medications as prescribed? Yes Did patient provide teach back? No Pharmacy Bedside Delivery Status Interested Does the patient have a immigration case manager assigned to them through their insurance? No Living Arrangement (Current/Prior to Hospitalization) Home self care (From home alone) Does the patient have history of HHC or SNF? No Assistive Device Not applicable Patient's goal for discharge Goal is to discharge home Was patient reminded that goal for discharge is 11am? Yes Does the patient have transportation at discharge? Yes Type of Residence Private residence Is PT/OT appropriate? No Is PT/OT ordered? No Is SW consult appropriate? No Is SW consult ordered? No Do you understand the benefits of MyChart? Yes Were you able to send link and activate MyChart? [facility]11-05-2025 NotePharmacy Dosing Service - Vancomycin Progress Note Pharmacy is consulted for the dosing and evaluation of: Drug: Vancomycin Duration: Day 1 of empiric therapy Indication: complicated skin and soft tissue infection [id number] Other Antimicrobial Regimens: cefepime 1g q8h for crcl of 33 Labs and Renal Function Lab Results Component Value Date WBC 3.95 (L) 06/15/2025 WBC 8.42 06/09/2025 WBC 9.13 06/08/2025 Lab Results Component Value Date BUN 29 (H) 06/15/2025 BUN 23 06/08/2025 BUN 23 06/07/2025 CREATININE 1.99 (H) 06/15/2025 CREATININE 1.78 (H) 06/08/2025 CREATININE 1.74 (H) 06/07/2025 Pharmacokinetic Parameters: Total body weight: 79.4 kg (175 lb) [place] body weight: 63.8 kg (140 lb 10.5 oz) Adjusted ideal body weight: 70 kg (154 lb 6.3 oz) Estimated Creatinine Clearance: 33.2 mL/min (A) (by C-G formula based on SCr of 1.99 mg/dL (H)). CrCl as estimated by Cockroft-Gault used to calculate parameters Weight used to calculate CrCl and Ke: ideal body weight Last Dose: 1500 mg Date: 06/15 Time: 2100 No results found for: VANCOTIMED , VANCOPEAK , VANCOTROUGH , VANCORANDOM Pharmacokinetic Parameters: Vd: 52 L Ke: 0.03 hr -1 T1/2: 24 hr Microbiology: - Results for orders placed or performed during the hospital encounter of 06/15/25 Wound culture Specimen: Leg; Swab Result Value Ref Range Gram Stain Result No polymorphonuclear leukocytes seen Gram Stain Result Moderate Gram negative bacilli MRSA DNA Date/Time Value Ref Range Status 05/24/2025 02:48 PM Negative Negative Final MSSA DNA Date/Time Value Ref Range Status 05/24/2025 02:48 PM Negative Negative Final Assessment / Comments: -70 y.o. White male with recent right fem to above knee pop bypass with graft on 06/07. He reports he initially was having some serosanguinous drainage from the incision and was seen in wound clinic for this. Today, he reports more purulent drainage as well as erythema surrounding the incision, prompting presentation to ER -Patient is afebrile (Tmax 24h: 98.8), Leukocytosis: stable -Antimicrobial agents have appropriate automatic stop dates? yes -Current risk factors for nephrotoxicity: Advanced age -Comments on renal function / baseline serum creatinine: unknown and unpredictable baseline due to unlimited data. I found 1 Scr in 10/2024 was 2.2 and 1 back in 2023 was ~ 1.7 - will DBL for now Plan: -Will start dosing per level. Pt already received LD on 06/15 @ 2100 -Continue to dose by levels -Plan to check vancomycin level on 06/16 at 2200 -Check BUN/SCr daily -Pharmacy will follow up daily on culture and sensitivity results and renal function -Please do not hesitate to contact us with comments or questions Thank you, Khalida Ivan, PharmD, 06/16/25[facility] 06-15-2025 Note06/15/25 5651 Financial Resource Strain How hard is it for you to pay for the very basics like food, housing, medical care, and heating? Not hard Housing Stability In the last 12 months, was there a time when you were not able to pay the mortgage or rent on time? N In the past 12 months, how many times have you moved where you were living? 0 (Lives at home by himself) At any time in the past 12 months, were you homeless or living in a half-way (including now)? N Transportation Needs In the past 12 months, has lack of transportation kept you from medical appointments or from getting medications? no In the past 12 months, has lack of transportation kept you from meetings, work, or from getting things needed for daily living? No Food Insecurity Within the past 12 months, you worried that your food would run out before you got the money to buy more. Never true Within the past 12 months, the food you bought just didn't last and you didn't have money to get more. Never true Stress Do you feel stress - tense, restless, nervous, or anxious, or unable to sleep at night because your mind is troubled all the time - these days? Only a littl Social Connections In a typical week, how many times do you talk on the phone with family, friends, or neighbors? More than 3 How often do you get together with friends or relatives? More than 3 How often do you attend latter-day or adventism services? Never Do you belong to any clubs or organizations such as latter-day groups, unions, fraternal or athletic groups, or school groups? No How often do you attend meetings of the clubs or organizations you belong to? Never Are you , , , , never , or living with a partner? Intimate Partner Violence Within the last year, have you been afraid of your partner or ex-partner? No Within the last year, have you been humiliated or emotionally abused in other ways by your partner or ex-partner? No Within the last year, have you been kicked, hit, slapped, or otherwise physically hurt by your partner or ex-partner? No Within the last year, have you been raped or forced to have any kind of sexual activity by your partner or ex-partner? No Alcohol Use Q1: How often do you have a drink containing alcohol? Never Q2: How many drinks containing alcohol do you have on a typical day when you are drinking? None Q3: How often do you have six or more drinks on one occasion? Never Utilities In the past 12 months has the [employer], gas, oil, or water [employer] threatened to shut off services in your home? 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 No Completed social work assessment and SDoH screening. Patient was A&Ox4 at this time. Patient's ex-, Alyse, and patient's daughter, Nini, were currently present at bedside. Patient reported that he lives at home by himself, though noted that his daughter is often over at his house. Patient identified his whole family as his support system and he endorsed that he is moderately socially socially active. Patient reported that he is independent with ADLs without the use of any DME. Patient reported that he is retired from employment and he denied the need for assistance with obtaining basic needs. Patient also denied the need for assistance with transportation for medical appointments and he denied that he will need assistance with transportation to return home from the hospital upon discharge. Patient denied experiencing a significant amount of stress in his everyday life, denied experiencing any form of IPV within the past year, and denied any alcohol consumption or recreational drug use.[facility] 06-14-2025 NoteDIVISION OF VASCULAR SURGERY HPI Kel Castillo is a 70 y.o. male who presents today for issues s/p left fem-pop bypass on 06/[address] Lyles. Patient and daughter have noted drainage/bleeding getting worse from the steri strips on right medial thigh. He reports 7/10 pain. Patient went to ED on 06/12/25 after noticing leg swelling, still is swollen, however, not as bad. He stated there is also still drainage from the incision, clear and bloody at times. He denies fever and diaphoresis but reports occasional chills. He has been elevating his leg which has improved edema and continues taking acetaminophen for pain. Patient takes atorvastatin, aspirin and plavix. Review of Systems Constitutional: Positive for chills. Negative for decreased appetite, diaphoresis, fever, malaise/fatigue, night sweats, weight gain and weight loss. HENT: Negative for congestion, ear discharge, ear pain, hearing loss, hoarse voice, nosebleeds, odynophagia, sore throat, stridor and tinnitus. Eyes: Negative for blurred vision, discharge, double vision, pain, photophobia, redness, vision loss in left eye, vision loss in right eye, visual disturbance and visual halos. Cardiovascular: Positive for leg swelling. Negative for chest pain, claudication, cyanosis, dyspnea on exertion, irregular heartbeat, near-syncope, orthopnea, palpitations, paroxysmal nocturnal dyspnea and syncope. Respiratory: Negative for cough, hemoptysis, shortness of breath, sleep disturbances due to breathing, snoring, sputum production and wheezing. Endocrine: Negative for cold intolerance, heat intolerance, polydipsia, polyphagia and polyuria. Hematologic/Lymphatic: Negative for adenopathy and bleeding problem. Bruises/bleeds easily. Skin: Negative for color change, dry skin, flushing, itching, nail changes, poor wound healing, rash, skin cancer, suspicious lesions and unusual hair distribution. Musculoskeletal: Negative for arthritis, back pain, falls, gout, joint pain, joint swelling, muscle cramps, muscle weakness, myalgias, neck pain and stiffness. Gastrointestinal: Negative for bloating, abdominal pain, anorexia, change in bowel habit, bowel incontinence, constipation, diarrhea, dysphagia, excessive appetite, flatus, heartburn, hematemesis, hematochezia, hemorrhoids, jaundice, melena, nausea and vomiting. Genitourinary: Negative for bladder incontinence, decreased libido, dysuria, flank pain, frequency, genital sores, hematuria, hesitancy, incomplete emptying, menorrhagia, missed menses, nocturia, non-menstrual bleeding, pelvic pain and urgency. Neurological: Positive for dizziness and loss of balance. Negative for aphonia, brief paralysis, difficulty with concentration, disturbances in coordination, excessive daytime sleepiness, focal weakness, headaches, light-headedness, numbness, paresthesias, seizures, sensory change, tremors, vertigo and weakness. Psychiatric/Behavioral: Negative for altered mental status, depression, hallucinations, hypervigilance, memory loss, substance abuse, suicidal ideas and thoughts of violence. The patient does not have insomnia and is not nervous/anxious. Allergic/Immunologic: Negative for environmental allergies, HIV exposure, hives and persistent infections. Past Medical History: Medical History[1] Objective Visit Vitals Smoking Status Former Vascular Physical Exam Constitutional: General: He is awake. Appearance: Normal appearance. He is not ill-appearing. HENT: Head: Normocephalic and atraumatic. Eyes: General: No scleral icterus. Conjunctiva/sclera: Conjunctivae normal. Cardiovascular: Rate and Rhythm: Normal rate and regular rhythm. Pulses: Radial pulses are 2+ on the right side and 2+ on the left side. Dorsalis pedis pulses are detected w/ Doppler on the right side. Posterior tibial pulses are detected w/ Doppler on the right side. Comments: R popliteal with strong doppler signal Pulmonary: Effort: Pulmonary effort is normal. Breath sounds: Normal breath sounds. No wheezing, rhonchi or rales. Abdominal: General: Bowel sounds are normal. Palpations: Abdomen is soft. Musculoskeletal: Neck: Normal range of motion and neck supple. Right lower le+ Pitting Edema present. Comments: Arrived in a wheelchair. Right groin with intact steri strips. RLE with 2+ pitting edema pedal to thigh. Compartments are soft and nontender. Right medial thigh incision with 3 small areas of superficial dehiscence and scant serosang drainage. No malodor or surrounding erythema or warmth noted. Skin: General: Skin is warm and dry. Neurological: General: No focal deficit present. Mental Status: He is alert and oriented to person, place, and time. Psychiatric: Mood and Affect: Mood normal. Behavior: Behavior normal. Thought Content: Thought content normal. Judgment: Judgment normal. Imaging Reviewed: Assessment and Plan: Diagnoses and all orders for this (more content not included)...[facility]10-29-2025 Note06/09/25 1058 Admission Assessment Questions Verify insurance with patient Yes Do you understand medical disease or what brought you into the hospital? Yes Who is your current PCP? Noa Watson MD Can I schedule a follow up appointment for you at the time of discharge? No Does patient qualify for Complex Care Management Enrollment? No Do you understand why you are taking your current medications? Yes Are you taking your medications as prescribed? Yes Did patient provide teach back? Yes Pharmacy Bedside Delivery Status Not Interested Does the patient have a immigration case manager assigned to them through their insurance? No Living Arrangement (Current/Prior to Hospitalization) Private residence (from home with daughter) Does the patient have history of HHC or SNF? No Assistive Device Not applicable (pt reports he is independent) Patient's goal for discharge home Was patient reminded that goal for discharge is 11am? No Does the patient have transportation at discharge? Yes Type of Residence Private residence Is PT/OT appropriate? No Is PT/OT ordered? No Is SW consult appropriate? No Is SW consult ordered? No Do you understand the benefits of MyChart? Yes Were you able to send link and activate MyChart? MyChart already active 06/09 Admitted for PAD. Underwent planned right femoral popliteal bypass with graft 06/07/25 for occlusion of right SFA. Will remove dressing today per vascular. From home. Rx/F2F provided for RW; SW consulted for DME referral. [facility]10[facility]29[facility] DAILY PROGRESS NOTE Subjective Patient seen and examined at bedside. No acute events overnight. Vital signs stable. Denies RLE pain. Has been able to tolerate a diet. No BM post op but has passed gas. Miminal ambulation post op. Post op arterial imaging to be completed today. Denies chest pain, shortness of breath, fever, chills, abdominal pain Objective Vitals: Vitals: 06/09/25410 BP: 136/54 Pulse: 71 Resp: 26 Temp: 36.8 ???C (98.2 ???F) SpO2: 91% I/O last 3 completed shifts: In: 733.3 (9 mL/kg) [P.O.:540; I.V.:193.3 (2.4 mL/kg)] Out: 2650 (32.6 mL/kg) [Urine:2650 (0.9 mL/kg/hr)] Weight: 81.2 kg No intake/output data recorded. Physical Exam Physical Exam Constitutional: Appearance: Normal appearance. HENT: Head: Normocephalic and atraumatic. Cardiovascular: Rate and Rhythm: Normal rate and regular rhythm. Comments: RLE palpable DP and PT Abdominal: General: There is no distension. Palpations: Abdomen is soft. Tenderness: There is no abdominal tenderness. Skin: General: Skin is warm and dry. Comments: RLE warm and well perfused Surgical sites clean, edges well approximated, no drainage Neurological: General: No focal deficit present. Mental Status: He is alert and oriented to person, place, and time. Mental status is at baseline. Psychiatric: Mood and Affect: Mood normal. Behavior: Behavior normal. Thought Content: Thought content normal. Labs: Results from last 7 days Lab Units 06/09/25 0356 06/08/25 0411 06/07/252017 WBC AUTO 10*3/uL 8.42 9.13 8.07 HEMOGLOBIN g/dL 10.1* 9.3* 9.7* HEMATOCRIT % 31.6* 27.6* 29.2* PLATELETS AUTO 10*3/uL 129* 113* 131* Results from last 7 days Lab Units 06/08/25 0411 06/07/252017 SODIUM mmol/L 136 138 POTASSIUM mmol/L 4.8 4.1 CO2 mmol/L 24 23 BUN mg/dL 23 23 CREATININE mg/dL 1.78* 1.74* Medications: amLODIPine, 5 mg, oral, BID aspirin, 81 mg, oral, q AM atorvastatin, 80 mg, oral, Nightly buPROPion XL, 300 mg, oral, q AM busPIRone, 15 mg, oral, BID clopidogrel, 75 mg, oral, Daily heparin (porcine), 5,000 Units, subcutaneous, BID metoprolol tartrate, 50 mg, oral, BID mometasone-formoterol, 2 puff, inhalation, BID And umeclidinium, 1 puff, inhalation, Daily OLANZapine, 5 mg, oral, Nightly Oxygen Therapy, , inhalation, Continuous pantoprazole, 40 mg, intravenous, Daily before breakfast Or pantoprazole, 40 mg, oral, Daily before breakfast sertraline, 200 mg, oral, Daily traZODone, 100 mg, oral, Nightly Imaging: Invasive vascular procedure This order was resulted via OpNote or Post Procedure Note. If those notes are not displayed in this report, please refer to the Notes tab. Active Inpatient Problems Principal Problem: Peripheral arterial occlusive disease Active Problems: Lower extremity pain, bilateral Severe claudication Vascular/Wound Care Assessment/Plan Kel Castillo is a 70 y.o. male with PAD status post right fem to above knee popliteal bypass on 06/07/25. No immediate complications. No plans for further intervention this admission LLE endarterectomy possible bypass on 07/05/25 Post op arterial imaging to be completed today Continue aspirin and plavix Regular diet Pain control Replace electrolytes as needed The findings from this face to face encounter indicate the reason this patient requires a rolling walker. Due to gait instability, I have ordered a walker. The patient???s medical condition limits his/her mobility and impairs his/her ability to participate in MRADLS. The patient???s mobility limitation cannot be sufficiently resoled by the use of a cane and can be with the use of a walker. The patient can safely use the walker. It will significantly improve the patient???s ability to participate in MRADLS and he/she will use it on a regular basis. It is apparent the patient would benefit from obtaining a walker and the benefits and need have been discussed with the patient Duration: 99 months Height: 165 cm Weight: 179 lb Possible DC home today if he is able to ambulate and arterial imaging looks okay Will Keys PA-C Vascular/Wound Service Please direct primary wound calls to: [phone] Please direct primary vascular calls to: [phone] This note was created with the assistance of a speech-recognition program. While intending to generate a document that accurately reflects the content of the encounter, no guarantee can be provided that every mistake has been identified and corrected by editing '[facility]10-28-2025 Note [facility] Surgical Intensive Care Unit Progress Note Chief Complaint: Critical Care Management Primary Service: Vascular surgery Today's Progress Note: NAEON. Patient is alert and oriented. Pain well controlled. Hemodynamically stable. HPI: 70 y.o. year old male with a PMH coronary artery disease s/p 3V CABG (2009), HFrEF EF 48%, PAD, HTN, HLD, COPD, CKD stage 4. Underwent planned right femoral-popliteal bypass with graft 06/07/25 for occlusion of right SFA. Procedure was uncomplicated. Transferred to SICU for close post-operative monitoring. Patient presents to SICU extubated and in stable condition. Groin soft, tender to palpation. Patient's pain in the leg is well controlled, but does endorse pain to the right radial a-line site. Discussed needing A-line for continuous BP monitoring. Patient verbalized understanding. Interval History: Objective Vitals: BP: (134-142)/(50-62) 134/50 (06/07 2159) Girls Systolic BP Percentile: -- Girls Diastolic BP Percentile: -- Boys Systolic BP Percentile: -- Boys Diastolic BP Percentile: -- Temp: [35.8 ???C (96.4 ???F)-36.7 ???C (98.1 ???F)] 36.5 ???C (97.7 ???F) (06/08 400) Temp Source: Temporal (06/08 400) Heart Rate: [55-63] 58 (06/08 500) Resp: [12-22] 19 (06/08 500) SpO2: [85 %-100 %] 96 % (06/08 500) Height: [165.1 cm (5' 5 )] 165.1 cm (5' 5 ) (06/07 100) Weight: [75.1 kg (165 lb 9.1 oz)] 75.1 kg (165 lb 9.1 oz) (06/07 100) No data recorded I/O last 3 completed shifts: In: 2210.5 (29.4 mL/kg) [I.V.:2157 (28.7 mL/kg); IV Piggyback:53.5] Out: 850 (11.3 mL/kg) [Urine:800 (0.3 mL/kg/hr); Blood:50] Weight: 75.1 kg Physical Exam: General: Awake, alert, no acute distress. Head: Normocephalic and atraumatic. Eyes: PERRL, EOMI. Neurologic: Alert and oriented x4. Moving extremities and following commands. Lungs: CTAB. Normal work of breathing on RA. Cardiovascular: Regular rate and rhythm. No audible murmurs. Abdomen: Soft, nontender, and nondistended. No guarding. Extremities: No gross deformities. Right groin soft, tender to palpation. Skin: Warm and dry. Normal for ethnicity. Psych: Friendly and cooperative. Labs: Recent Results (from the past 12 hours) CBC Collection Time: 06/07/25 8:18 PM Result Value Ref Range Auto WBC 8.07 4.00 - 10.60 10*3/uL RBC 3.19 (L) 4.20 - 5.70 10*6/uL Hemoglobin 9.7 (L) 13.0 - 17.0 g/dL Hematocrit 29.2 (L) 39.0 - 50.0 % MCV 91.5 82.0 - 98.0 fL MCH 30.4 27.0 - 33.0 pg MCHC 33.2 32.0 - 35.0 g/dL RDW 14.0 11.5 - 15.0 % Platelets 131 (L) 150 - 400 10*3/uL Immature Platelet Fraction % 0.7 (L) 0.8 - 6.3 % Basic metabolic panel Collection Time: 06/07/25 8:18 PM Result Value Ref Range Sodium 138 136 - 145 mmol/L Potassium 4.1 3.5 - 5.1 mmol/L Chloride 107 98 - 107 mmol/L CO2 23 21 - 31 mmol/L BUN 23 7 - 25 mg/dL Creatinine 1.74 (H) 0.70 - 1.30 mg/dL Glucose 127 (H) 70 - 100 mg/dL Calcium 9.3 8.6 - 10.3 mg/dL Anion Gap 12 7 - 20 mmol/L eGFR 41.1 (L) >60.0 mL/min/1.73m*2 BUN/Creatinine Ratio 13.2 Magnesium Collection Time: 06/07/25 8:18 PM Result Value Ref Range Magnesium 1.5 (L) 1.9 - 2.7 mg/dL Phosphorus Collection Time: 06/07/25 8:18 PM Result Value Ref Range Phosphorus 4.1 2.5 - 5.0 mg/dL Basic metabolic panel Collection Time: 06/08/25 4:11 AM Result Value Ref Range Sodium 136 136 - 145 mmol/L Potassium 4.8 3.5 - 5.1 mmol/L Chloride 105 98 - 107 mmol/L CO2 24 21 - 31 mmol/L BUN 23 7 - 25 mg/dL Creatinine 1.78 (H) 0.70 - 1.30 mg/dL Glucose 117 (H) 70 - 100 mg/dL Calcium 9.2 8.6 - 10.3 mg/dL Anion Gap 12 7 - 20 mmol/L eGFR 40.0 (L) >60.0 mL/min/1.73m*2 BUN/Creatinine Ratio 12.9 Magnesium Collection Time: 06/08/25 4:11 AM Result Value Ref Range Magnesium 2.2 1.9 - 2.7 mg/dL Phosphorus Collection Time: 06/08/25 4:11 AM Result Value Ref Range Phosphorus 4.8 2.5 - 5.0 mg/dL CBC Collection Time: 06/08/25 4:11 AM Result Value Ref Range Auto WBC 9.13 4.00 - 10.60 10*3/uL RBC 3.07 (L) 4.20 - 5.70 10*6/uL Hemoglobin 9.3 (L) 13.0 - 17.0 g/dL Hematocrit 27.6 (L) 39.0 - 50.0 % MCV 89.9 82.0 - 98.0 fL MCH 30.3 27.0 - 33.0 pg MCHC 33.7 32.0 - 35.0 g/dL RDW 14.0 11.5 - 15.0 % Platelets 113 (L) 150 - 400 10*3/uL Radiologic studies: No X-ray results found for the past [address] results found for the past 24 hours No MRI results found for the past 24 hours EKG: Encounter Date: 05/11/25 Electrocardiogram, 12-lead Result Value Ventricular Rate 54 Atrial Rate 54 TX Interval 190 QRS DURATION 120 QT Interval 492 QTC CALCULATION(BAZETT) 466 P Monroe 36 R-Monroe -22 T Wave Monroe 95 Impression Sinus bradycardia Intra-ventricular conduction delay Nonspecific ST and T wave abnormality Abnormal ECG When compared with ECG of 08-APR-2025 07:50, no significant changes was noted Confirmed by Saqib Saldana ([id number]) on 05/11/2025 11:35:47 PM Assessment The patient is a 70 y.o. year old (more content not included)...[facility]10-28-2025 NoteThis report has been cancelled.[facility]10-28-2025 [facility]UnSum[facility] DAILY PROGRESS NOTE Subjective/Interval History No acute events overnight, feels pretty good this, chronic tingling and burning pain on right foot has completely resolved after bypass, right DP/PT pulses are palpable. Objective Vitals: Vitals: 06/08/25 0935 BP: 119/54 Pulse: 57 Resp: 23 Temp: SpO2: 97% I/O last 3 completed shifts: In: 2403.8 (32 mL/kg) [I.V.:2350.3 (31.3 mL/kg); IV Piggyback:53.5] Out: 1740 (23.2 mL/kg) [Urine:1690 (0.6 mL/kg/hr); Blood:50] Weight: 75.1 kg I/O this shift: In: - Out: 760 [Urine:760] Physical Exam Constitutional: Appearance: Normal appearance. Cardiovascular: Pulses: Normal pulses. Heart sounds: Normal heart sounds. Pulmonary: Effort: Pulmonary effort is normal. Breath sounds: Normal breath sounds. Abdominal: General: Abdomen is flat. Bowel sounds are normal. There is no distension. Palpations: Abdomen is soft. There is no mass. Tenderness: There is no abdominal tenderness. Skin: Comments: Right groin and right thigh incision clean, dry. No evidence of hematoma. Neurological: Mental Status: He is alert. Vascular Exam Vascular: RLE Pulses: Femoral: +2 DP: 2+ PT: 2+ Edema: none LLE Pulses: Femoral: +2 DP: 2+ PT: 2+ Edema: none RUE Pulses: Radial: 2+ Edema: none LUE Pulses: Radial: 2+ Edema: none Labs: Results from last 7 days Lab Units 06/08/251 06/07/252017 WBC AUTO 10*3/uL 9.13 8.07 HEMOGLOBIN g/dL 9.3* 9.7* HEMATOCRIT % 27.6* 29.2* PLATELETS AUTO 10*3/uL 113* 131* Results from last 7 days Lab Units 06/08/2541006/07/252017 SODIUM mmol/L 136 138 POTASSIUM mmol/L 4.8 4.1 CO2 mmol/L 24 23 BUN mg/dL 23 23 CREATININE mg/dL 1.78* 1.74* Medications: amLODIPine, 5 mg, oral, BID aspirin, 81 mg, oral, q AM atorvastatin, 80 mg, oral, Nightly buPROPion XL, 300 mg, oral, q AM busPIRone, 15 mg, oral, BID clopidogrel, 75 mg, oral, Daily heparin (porcine), 5,000 Units, subcutaneous, BID metoprolol tartrate, 50 mg, oral, BID mometasone-formoterol, 2 puff, inhalation, BID And umeclidinium, 1 puff, inhalation, Daily OLANZapine, 5 mg, oral, Nightly Oxygen Therapy, , inhalation, Continuous pantoprazole, 40 mg, intravenous, Daily before breakfast Or pantoprazole, 40 mg, oral, Daily before breakfast sertraline, 200 mg, oral, Daily traZODone, 100 mg, oral, Nightly Imaging: Invasive vascular procedure This order was resulted via OpNote or Post Procedure Note. If those notes are not displayed in this report, please refer to the Notes tab. Assessment/Plan Kel Castillo is a 70 y.o. male with PAD status post right fem to above knee popliteal bypass on 06/07/25. No immediate complications. Ok to advance diet to reg Discontinue IVFs Pain and nausea meds as needed. Ok to get up and sit in chair today Continue ASA and plavix DVT ppx with SQH Remove lines and cortez Ok to transfer to floor Will remove dressing tomorrow Omer Nathan MD General Surgery, PGY-4 Vascular Surgery Service For non-urgent questions, Gather Chat may be used [phone], M-F. For urgent concerns, please call [phone], or ask the press operator automatic to connect you to the on-scallop binder. For after-hours concerns, please page [phone], or ask the press operator automatic to connect you to the on-scallop binder. This note was created with the assistance of a speech-recognition program. While intending to generate a document that accurately reflects the content of the encounter, no guarantee can be provided that every mistake has been identified and corrected by editingTogus [facility]10-27-20[facility] Note Patient: Kel Castillo Procedure Summary Date: 06/07/25 Room / Location: [address] / [facility] Operating Room Anesthesia Start: 1450 Anesthesia Stop: 1822 Procedures: Right Femoral- Popliteal Bypass with 8mm Propaten Graft above the knee (Right: Thigh - Leg Upper) ENDARTERECTOMY, COMMON FEMORAL ARTERY, PROFUNDA , AND (Right: Groin) Diagnosis: Lower extremity pain, bilateral Severe claudication Encounter for pre-operative examination (Lower extremity pain, bilateral [M79.604, M79.605]) (Severe claudication [I73.9]) (Encounter for pre-operative examination [Z01.818]) Surgeons: Italo Lyles MD Responsible Provider: Trang Chen MD Anesthesia Type: general ASA Status: 3 Anesthesia Type: No value filed. Vitals Value Taken Time BP 123/42 06/07/25 19:03 Temp 36 ???C (96.8 ???F) 06/07/25 18:20 Pulse 60 06/07/25 19:02 Resp 16 06/07/25 19:02 SpO2 96 % 06/07/25 19:02 Vitals shown include unfiled device data. Anesthesia Post Evaluation Patient location during evaluation: PACU Patient participation: complete - patient participated Level of consciousness: awake and alert and lethargic Pain score: 5 Pain management: adequate Airway patency: patent Cardiovascular status: acceptable and blood pressure returned to baseline Respiratory status: acceptable, unassisted and nasal cannula (SpO2 in high 90s on 4L NC) Hydration status: acceptable Patient is hemodynamically stable and is able to be discharged from PACU per anesthesia protocol. There were no known notable events for this encounter.[facility]10-27-2025 NoteAirway Date/Time: 06/07/2025 3:09 PM Reason: elective Airway not difficult General Information and Staff Patient location during procedure: OR Anesthesiologist: Judith Malloy MD Resident/SAILOR/CAA: Young Carcamo MD Performed: resident/SAILOR/MATHIEU Patient Condition Indications for airway management: anesthesia [...] approach: 1 Number of other approaches attempted: 0UnCincinnati [facility] 06-07-2025 NoteArterial Line: Date/Time: 06/07/2025 12:38 PM An arterial [...] Skin prep, Sterile drape, VSS. Staffing Performed: resident/NABILA/MATHIEU Anesthesiologist: Judith Malloy MD Resident/SAILOR: Young Carcamo MD Performed by: Young Carcamo MD Authorized by: Judith Malloy MDTogus [facility] Center10-27-2025 NotePlan same as belowUnCincinnati [facility]10-27-2025 Note Relevant Hx: Can walk only 10 steps prior to stopping due to pain Course: Previous stenting of the right SFA, continues to be symptomatic Today's Plan: OR today for right fem-pop bypass with graft, 2g Ancef given for surgical prophylaxisTogus [facility] Center10-26-2025 NotePatient: Kel Castillo Procedure Information Date/Time: 06/07/25 1100 Procedures: CREATION, BYPASS, ARTERIAL, FEMORAL TO POPLITEAL, USING GRAFT (Right) LOWER EXTREMITY ANGIOGRAM WITH POSSIBLE INTERVENTION (Left) LOWER EXTREMITY INTERVENTION Location: [facility] OR [address] [place] [address] / [facility] Operating Room Surgeons: Italo Lyles MD Relevant Problems Cardio (+) Atherosclerosis of arteries of extremities (+) Hypertensive disorder (+) Migraine GI (+) Gastroesophageal reflux disease without esophagitis /Renal (+) Chronic kidney disease, stage 4 (severe) ([facility]/HCC) Neuro/Psych (+) Migraine Pulmonary (+) Chronic obstructive pulmonary disease, unspecified ([facility]/HCC) Clinical information reviewed: TTE 04/27/2025 LVEF 40-45% Normal RV size and function Biatrial enlargement Left heart catheterization 05/11/2025 FINAL IMPRESSIONS: Severe, three-vessel [place] coronary artery disease There are 2 out of 3 bypass graft patent; the saphenous vein graft to the posterior descending branch is known to be occluded Mildly reduced global left ventricular systolic function by noninvasive imaging Physical Exam Airway Mallampati: II TM distance: >3 FB Neck ROM: full Cardiovascular - normal exam Rhythm: regular Rate: normal Dental (+) lower dentures, upper dentures Pulmonary - normal examComments: Respirations are: Non-labored in effort, Regular in pattern, and Normal in rate. There is visible chest wall excursion that is: Bilateral & Symmetrical. Neurological Abdominal Anesthesia Plan ASA 3 general (IAC) The patient is not a current smoker. intravenous induction Postoperative pain plan includes opioids. Anesthetic plan and risks discussed with patient. Use of blood products discussed with patient who consented to blood products. Plan discussed with attending. Additional Equipment RequestsTogus [facility] Medical Center10-15-2025 Note Nephrology Clinic Patient: Kel Castillo; 70 y.o. Visit date: 05/26/25 Reason for today's visit: New patient SUBJECTIVE: History Of Present Illness: Kel Castillo is a 70 y.o. male Here to [...] His diet is high in potatoes / romansh fries. We discussed low potassium diet in detail today. We discussed Lokelma to be used as directed for a potassium of > 5.5. Will repeat potassium/ BMP today. He has CHF with reduced EF 40-45% s.p left heart cath , CAD s/p CABG, PAD, COPD, HLD, follows with Cardiology (Dr. Garcia) and Vascular (Dr. Lyles). He has ongoing LE pain in both legs and is planned for right femoral to above knee popliteal bypass with graft and Left LE angiogram with possible intervention on June 07 2025. He is on aspirin, plavix, statin, and gaby inhibitor. He is not on Entresto, Aldactone, or [...] day of surgery and 2 days after due to risk of KELLIE and hyperkalemia. BP today is 122/70, he takes Lisinopril 10mg daily, Amlodipine 5mg daily and Metoprolol 12.5mg BID. Depending on repeat potassium we may have to [...] given history of tobacco use and peripheral arterial disease. Blood pressure well controlled, no hypervolemic on exam. Reviewed medications and labs. Review of Systems Cardiovascular: Bilateral leg pains All other systems reviewed and are negative. OBJECTIVE: Visit Vitals BP 122/70 (BP Location: Right arm, Patient Position: Sitting, BP Cuff Size: Adult) Pulse 50 Ht 1.651 m (5' 5 ) Wt 75.8 kg (167 lb) SpO2 99% BMI 27.79 kg/m??? Smoking Status Former BSA 1.86 m??? Physical Exam Vitals reviewed. Constitutional: General: He [...] sounds: No murmur heard. Pulmonary: Breath sounds: Normal breath sounds. No wheezing or rales. Abdominal: Palpations: Abdomen is soft. [...] Chemistry: Lab Results Component Value Date/Time NA 136 05/24/2025 1448 K 5.5 (H) 05/24/2025 1448 CL 105 05/24/2025 1448 CO2 25 05/24/2025 1448 CO2 26 10/08/2019 0720 BUN 30 (H) 05/24/2025 1448 CREATININE 2.24 (H) 05/24/2025 1448 EGFR 30.4 (L) 05/24/2025 1448 GLU 100 10/08/2019 0720 CALCIUM 8.8 05/24/2025 1448 MG 2 10/20/2024 1005 ALBUMIN 4.6 10/05/2019 1131 PROT 7.6 10/05/2019 1131 AST 25 10/05/2019 1131 ALT 26 10/05/2019 1131 BILITOT 0.5 10/05/2019 1131 ALKPHOS 56 10/05/2019 1131 Hematology: Lab Results Component Value Date WBC 5.58 05/24/2025 HGB 11.6 (L) 05/24/2025 HCT 36.8 (L) 05/24/2025 MCV 96.1 05/24/2025 PLT 131 (L) 05/24/2025 Urine studies: Lab Results Component Value Date PROTUR NEGATIVE 10/05/2019 COLORU YELLOW 10/05/2019 SPECGRAVU 1.012 (L) 10/05/2019 BLOODU NEGATIVE 10/05/2019 WBCU 0-2 (A) 10/05/2019 LEUKOCYTESU NEGATIVE 10/05/2019 NITRITEU NEGATIVE 10/05/2019 HOME (more content not included)...[facility]10-06-2025 NoteLeft voicemail to schedule nephrology referralTogus [facility] Center09-18-2025 NoteSpoke to daughter Glenda in reference to cardiac cath per Dr. Tolliver. Daughter verbalized understanding and agreed with plan of care. Labs [facility] to [facility], [facility]09-18-2025 NoteHNO ID: [id number] Author: EUN TRENT DO Service: ? Author Type: Physician Type: Progress Notes Filed: 04/29/2025 16:05 Note Text: [facility] Follow up/ Established patient visit Individuals who were included in, or assisted with the encounter were: Samir Castillo Eun Black DO Chief Complaint/Issues: Samir Castillo is a 70 year old male seen in the [facility] for: Memory [...] Assessment AND Plan 04/29/2025 - General Neurology, Eun Black, DO ASSESSMENT Mr. Castillo is a [...] TABLET BY MOUTH TWIC (more content not included)...[facility]09-18-2025 NoteHNO ID: [id number] Author: CIELO CHILDERS MA Service: ? Author Type: Manager Digital Ad Operations Type: Progress Notes Filed: 04/29/2025 16:05 Note [...] 1 SD worse than population and warrants attentionSt. Mary'S Medical Center09-10-2025 NoteDIVISION OF VASCULAR SURGERY HPI Kel Castillo is a 69 y.o. male who presents today for PAD. Patient with a history of history of coronary artery disease, prior coronary artery bypass graft surgery, peripheral arterial disease, COPD, dyslipidemia, and movement disorder. He reports claudication symptoms in bilateral calves after walking short distances for a long period of time. He has had an HUBER study done at [facility] on 02/23/25 where right PT was, 0.55. right DP 0.53, right TBI 0.32, left PT 0.6, left DP 0.63, left TBI 0.51. He had a aortogram done by Dr. 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 Patient is taking aspirin, atorvastatin and plavix daily. Review of Systems Constitutional: Negative for chills, decreased appetite, diaphoresis, fever, malaise/fatigue, night sweats, weight gain and weight loss. HENT: Negative [...] palpitations, paroxysmal nocturnal dyspnea and syncope. Respiratory: Positive for shortness of breath. Negative for cough, hemoptysis, sleep disturbances due to breathing, snoring, sputum production and wheezing. Endocrine: Negative for cold intolerance, heat intolerance, polydipsia, polyphagia and polyuria. Hematologic/Lymphatic: Negative for adenopathy and bleeding problem. Does not bruise/bleed easily. Skin: Negative for color change, dry skin, flushing, itching, nail changes, poor wound healing, rash, skin cancer, suspicious lesions and unusual hair distribution. Musculoskeletal: Positive for neck pain. Negative for arthritis, back pain, falls, gout, joint pain, joint swelling, muscle cramps, muscle weakness, myalgias and stiffness. Gastrointestinal: Negative for bloating, abdominal pain, anorexia, change in bowel habit, bowel incontinence, constipation, diarrhea, dysphagia, excessive appetite, flatus, heartburn, hematemesis, hematochezia, hemorrhoids, jaundice, melena, nausea and vomiting. Genitourinary: Negative for bladder incontinence, decreased libido, dysuria, flank pain, frequency, genital sores, hematuria, hesitancy, incomplete emptying, menorrhagia, missed menses, nocturia, non-menstrual bleeding, pelvic pain and urgency. Neurological: Positive for dizziness, light-headedness and loss of balance. Negative for aphonia, brief paralysis, difficulty with concentration, disturbances in coordination, excessive daytime sleepiness, focal weakness, headaches, numbness, paresthesias, seizures, sensory change, tremors, vertigo and weakness. Psychiatric/Behavioral: Negative for altered mental status, depression, hallucinations, hypervigilance, memory loss, substance abuse, suicidal ideas and thoughts of violence. The patient does not have insomnia and is not nervous/anxious. Allergic/Immunologic: Negative for environmental allergies, HIV exposure, hives and persistent infections. Past Medical History: Medical History[1] Objective Visit Vitals Ht 1.676 m (5' 6 ) Wt 72.6 kg (160 lb) BMI 25.82 kg/m??? Smoking Status Former BSA 1.84 m??? Vascular Physical Exam Constitutional: General: He is awake. Cardiovascular: Rate and Rhythm: Normal rate and regular rhythm. Abdominal: General: Abdomen is flat. Feet: Right foot: Skin integrity: No skin breakdown. Left foot: Skin integrity: No skin breakdown. Neurological: Mental Status: He is alert. Plan: - Plan for right fem to above knee popliteal bypass with graft as well as left lower extremity angiogram with possible intervention for SFA disease. - Continue taking asa/plavix - Will review recent stress test with cardiology prior to surgery - showed normal myocardial perfusion with reduced systolic function (EF 44%) Dianne Ceballos MD Vascular Surgery PGY-4 Imaging Reviewed: Assessment and Plan: Femo p opl right side Left leg intervention. [1] Past Medical History: Diagnosis Date Cancer (CMS/HCC) Coronary artery disease [facility] NoteDIVISION OF VASCULAR SURGERY HPI Kel Castillo is a 69 y.o. male who presents today for No chief complaint on file. Patient referred to us for PAD. HE has had a HUBER study done at [facility] on 02/23/25. Patient with a history [...] Date Cancer (CMS/HCC) Coronary artery disease [facility] Telephone encounter Note* Telephone Encounter - Mariana Wheeler LPN - 04/05/2025 4:02 PM EDT Chest x-ray results received from [facility]. Scanned in for review. Mariana Wheeler LPN [facility]08-25-2025 Miscellaneous Notes* Telephone Encounter - Mariana Wheeler LPN - 04/05/2025 4:02 PM EDT Chest x-ray results received from [facility]. Scanned in for review. Mariana Wheeler LPN documented in this encounterDiley [facility] Center08-22-2025 Telephone encounter Note * Telephone Encounter - Brianne Patterson LPN - 04/02/2025 8:21 AM EDT I spoke to Nini and informed them of 's response and recommendations. She voiced understanding and will call back with fax number for lab of choice. Brianne Patterson LPN [facility]08-22-2025 Miscellaneous Notes* Telephone Encounter - Brianne Patterson LPN - 04/02/2025 8:21 AM EDT I spoke to Nini and informed them of 's response and recommendations. She voiced understanding and will call back with fax number for lab of choice. Brianne Patterson LPN * Addendum Note - Bill Gant MD - 04/02/2025 8:18 AM EDTAddended by: BILL GANT on: 04/02/2025 08:18 AM Modules accepted: Orders * Telephone Encounter - Bill Gant MD - 04/02/2025 8:17 AM EDT If the Jardiance is too expensive just have them cancel that particular prescription. I will order a BMP for about 2 weeks that can be done in [facility] * Telephone Encounter - Brianne Patterson LPN - 04/02/2025 8:05 AM EDT I spoke to Nini and informed them of 's response to lab results and recommendations. She voiced understanding and wants to go ahead and start both medications. [facility] in [place] on file is pharmacy of choice. Brianne Patterson LPN * Telephone Encounter - Brianne Patterson LPN - 04/02/2025 8:02 AM EDT ----- Message from Bill Gant MD sent [...] thanks Charanjit Contreras ----- Message ----- From: Danny, Background User Sent: 04/01/2025 5:02 PM EDT To: Bill Gant MD documented in this encounterDiley [facility] Center08-22-2025 Note* Addendum Note - Bill Gant MD - 04/02/2025 8:18 AM EDTAddended by: BILL GANT on: 04/02/2025 08:18 AM Modules accepted: Orders [facility]08-22-2025 Telephone encounter Note* Telephone Encounter - Bill Gant MD - 04/02/2025 8:17 AM EDT If the Jardiance is too expensive just have them cancel that particular prescription. I will order a BMP for about 2 weeks that can be done in [place] [facility]08-22-2025 Telephone encounter Note* Telephone Encounter - Brianne Patterson LPN - 04/02/2025 8:05 AM EDT I spoke to Nini and informed them of 's response to lab results and recommendations. She voiced understanding and wants to go ahead and start both medications. [facility] in [place] on file is pharmacy of choice. Brianne Patterson LPN [facility]08-22-2025 Telephone encounter Note* Telephone Encounter - Brianne Patterson LPN - 04/02/2025 8:02 AM EDT ----- Message from Bill Gant MD sent [...] 5:02 PM EDT To: Bill Gant MD [facility]08-21-2025 Instructions* Patient Instructions* Bill Gant MD - 04/01/2025 3:01 PM [...] to get these done locally where you liveand to send results to us so I can review them and get back with you. Please ask your android programmer to send results of the peripheral artery imaging that is planned to look at your legs in the next few weeks. documented in this encounterDiley Ridge Medical Center08-21-2025 History of Present illness Narrative* Bill Gant MD - 04/01/2025 2:20 PM EDT Chief Complaint No chief complaint on file. History of Present Illness: Samir Castillo is a 69-year-old male with a history of CAD, status post-CABG, HTN, HLD, COPD, PAD, stage 4 CKD, and mild cognitive impairment, presenting for a new patient visit. He lives in [place] and[place] most of [place] in [place] at [facility] but just wants a second opinion on overallmanagement. He underwent a heart catheterization 11 years ago, revealing a chronically occluded RCA that could not be opened, a patent SPRAGUE to the LAD, a patent radial graft to the obtuse marginal artery, and anoccluded saphenous vein graft to the PDA. His LVEF was 50-55% at that time. A recent echocardiogramin February showed an LVEF of 55%, grade [...] supplemental oxygen. He has not seen a carbon paste mixer operator recently and has not had any pulmonaryfunction tests. He denies any history of diabetes, liver disease, or excessive alcohol use. He denies any internal bleeding or significant bruising. He denies any use of NSAIDs such as Advil or Aleve. He has a history of mild cognitive impairment and is no longer driving. He relies on his family fortransportation. 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 He quit smoking 40 years ago. He is currently taking aspirin and Plavix. Recent lab results includea creatinine of 1.9 mg/dL and potassium of [...] 1/2 TABLETS BY MOUTH EVERY DAY omega 8-evr-otw-fish oil (FISH OIL) 100-160-1,000 mg cap Take [...] wheelchair elderly chronically ill-appearing very pleasant and answersmost questions pretty accurately no resting tachypnea HENT: [...] testing pretty normal speech answers questions pretty accuratelyable to continue sentences and really able to [...] and Plan: 1. Coronary artery disease involving seldovia coronary artery of seldovia heart without angina pectoris(I25.10) 2. Hx of CABG (Z95.1) 3. ROMAN [...] recent lipids (October): HDL 42, LDL 52. Onstatin - Continue current management. 7. CRI (chronic renal insufficiency), stage 4 (severe) ([facility]) (N18.4) Stage 4 renal insufficiency; most recent [...] planned peripheral angiogram by Dr. Tolliver at [facility]. - Discussed potential interventions (balloon angioplasty, stenting, surgery) depending on angiogramfindings. - Advised patient and family to ensure results are sent to our office for review. 9. Other emphysema ([facility]) (J43.8) COPD with mild baseline symptoms; no current oxygen requirement. History of remote smoking cessation (~40 years ago) and prior lung cancer with lobectomy 30 years ago. - Order chest X-ray and pulmonary function tests to assess current pulmonary status. - Discussed that mild-moderate pulmonary hypertension on echo may be related to COPD and prior lungsurgery. 10. Cognitive deficit: Per family has some [...] avoid him having to come back to [place] or [place] for all this testing. If they are done locally in the [facility] or in [place] I would then asked that results be sent to our office when available. Thank you Electronically signed by Bill Gant MD on March 31, 2025, 7:13 AM [1] Social History Tobacco Use Smoking status: Never Smokeless tobacco: Former Types: Chew Quit date: 07/14/2022 documented in this encounterDiley Ridge Medical Center08-21-2025 NoteHNO ID: [id number] Author: BILL GANT MD Service: ? Author Type: Physician Type: Progress Notes Filed: 04/01/2025 15:11 Note Text: Chief Complaint No chief complaint on file. History of Present Illness: Samir Castillo is a 69-year-old male with a history of CAD, status post-CABG, HTN, HLD, COPD, PAD, stage 4 CKD, and mild cognitive impairment, presenting for a new patient visit. He lives in [place] and gets most of his care in [place] at [facility] but just wants a second opinion [...] supplemental oxygen. 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 He worked at a [employer] before retiring. He quit smoking 40 years [...] 1/2 TABLETS BY MOUTH EVERY DAY omega 0-njy-wya-fish oil (FISH OIL) 100-160-1,000 mg cap Take [...] no resting tachypnea H (more content not included)...[facility] History of Present illness Narrative* Darrick Cannon PA-C - 03/10/2025 9:45 AM EDT [facility] [address] [place] [address] Patient: Kel Castillo Jr. Sex: male : 1955 Age: 69 y.o. PCP: NOA WATSON, PHYTOPATHOLOGIST-MULTIFOCAL BUTTON GRINDER 03/10/2025 Kel Castillo Jr. is here for [...] is present in the right side and midline(radiates into right shoulder). The quality of the pain is described as aching, stabbing, shooting,burning and cramping. The pain is at a [...] disease Chronic kidney disease, stage 4 (severe) ([facility]) 09/19/2023 Chronic obstructive pulmonary disease, unspecified ([facility]) 03/11/2024 CKD (chronic kidney disease) stage 3 Closed nondisplaced fracture of greater tuberosity of left humerus with routine healing 09/19/2023 COPD (chronic obstructive pulmonary disease) ([facility]) Coronary artery disease Coronary artery disease involving seldovia coronary artery of seldovia heart without angina pectoris 09/19/2023 Depression Dyspnea and respiratory abnormalities 09/18/2013 66 pk/yr history of smoking. Quit in 1994, when diagnosed with NSCLC and treated with RULobectomy and XRT. Also has extensive coronary disease, with CABG. Sees cardiology at [facility]. Anxiety, HTN, CKD IIIb. PCP started albuterol [...] echocardiogram Hypertension Intermittent claudication 08/25/2012 Lung cancer ([facility]) MCI (mild cognitive impairment) 04/12/2022 Migraine 07/18/2012 Mixed hyperlipidemia 07/18/2012 Neck pain Numbness JITENDRA (obstructive sleep apnea) Primary hypertension 05/28/2014 Recurrent major depression in partial remission 04/12/2022 Recurrent major depressive disorder, in full remission 04/12/2022 Traumatic complete tear of left rotator cuff 09/19/2023 Weakness Past Surgical History: Procedure Laterality Date INJECTION BLOCK NERVE MEDIAL BRANCH Bilat C 12/15, 01/16 Bilateral 02/19/2025 Performed by Justo Cherry MD at [facility] No Known Allergies History reviewed. No [...] Resource Strain: Low Risk (02/28/2025) Received from [facility] Overall Financial Resource Strain (CARDIA) Difficulty of Paying Living Expenses: Not very hard Food Insecurity: No Food Insecurity (03/10/2025) Hunger Screening Food Insecurity - Worry: Never True Food Insecurity - Inability: Never True Transportation Needs: No Transportation Needs (02/28/2025) Received from [facility] PRAPARE - Transportation Lack of Transportation (Medical): No Lack of Transportation (Non-Medical): No Physical Activity: Inactive (02/28/2025) Received from [facility] Exercise Vital Sign Days of Exercise per Week: 0 days Minutes of Exercise per Session: 0 min Stress: Stress Concern Present (02/28/2025) Received from [facility] [employer] - Occupational Stress Questionnaire Feeling of Stress : To some extent Social Connections: Socially Isolated (02/28/2025) Received from [facility] Social Connection and Isolation Panel [NHANES] Frequency of Communication with Friends and Family: More than three times a week Frequency of Social Gatherings with Friends and Family: Once a week Attends Muslim Services: Never Active Member of Clubs or Organizations: No Attends Club or Organization Meetings: Never Marital Status: Interpersonal Safety: Not At Risk (02/28/2025) Received from [facility] Humiliation, Afraid, Rape, and Kick questionnaire Fear of Current or Ex-Partner: No Emotionally Abused: No Physically Abused: No Sexually Abused: No Housing Instability: Low Risk (02/28/2025) Received from [facility] Housing Stability Vital Sign Unable to [...] during discussion, demonstrated appropriate cognitive reasoning and understandingof the medical condition by asking appropriate questions [...] is necessary to further evaluate the patients currentpain pathology. For this reason, we will order [...] monitoring for toxicity We do not currently prescribeany controlled substance from this practice. The spine model was demonstrated and Xray and MRI was reviewed and used to explain the condition. Chronic conditions not treated during this visit that affected my overall medical decision making: CAD, COPD, Sleep apnea. Depression OARRS: Reviewed. Scribe Statement: INoa CNA, scribed for and in the presence of DARRICK CANNON PA-C who performed the above service. Noa Anderson CNA 03/10/25 1033 Noa Anderson CNA 03/10/25 1040 Darrick Cannon PA-C 03/10/25 1049 documented in this encounterCommunity [facility]07-21-2025 History of Present illness Narrative* Noa Watson NP - 03/01/2025 3:16 PM EDTAssociated Problem(s): Gastroesophageal reflux disease without esophagitis Recommendations: freq small meals, nothing to eat or drink at least 2 hours prior to bed, limit caffeine, alcohol, as well as spicy foods Meds to limit or avoid if possible: NSAIDS Elevate HOB if possible Current meds: famotidine * Noa Watson NP - 03/01/2025 3:16 PM EDTAssociated Problem(s): Chronic obstructive pulmonary disease, unspecified (HCC) Is prescribed trelegy inhaler * Noa Watson NP - 03/01/2025 3:16 PM EDTAssociated Problem(s): Neck pain Continue with Pain Mgmt * ALVARO DE LOS SANTOS - 03/01/2025 1:40 PM EDT Left eye-blood shot no pain, started about 7/4 started to lighten up some- daughter states that it became red again about 2 weeks again. No complaints of blurry vision, no pain, pt is having headacheson right side, no falls, no slurred speech Pt typically looses balance and stumbles a bit- he did before stepping onto the scale. Pt does often become dizzy Pt had vascular study and echo done- notes in chart * Noa Watson NP - 03/01/2025 1:40 PM EDT Images from the original note were not included. Kel Castillo Jr is a 69 y.o. male presents with chief complaint of Hypertension HPI: Left eye-blood shot no pain, started about 7/4 started to lighten up some- daughter states that it became red again about 2 weeks again. No complaints of blurry vision, no pain, pt is having headacheson right side, no falls, no slurred speech [...] symptoms include neck pain. Pertinent negatives include noheadaches, peripheral edema or shortness of breath. SUBJECTIVE: [...] (65 Fe) MG tablet 1 tablet, Daily Kfgdklkmptv-Tcktmxnly-Zmznra (Trelegy Ellipta) 100-62.5-25 MCG/ACT aerosol powder 1 [...] HISTORY Past Medical History: Diagnosis Date Alcoholism ([facility]) ( quit drinking 25 years ago) Anxiety and depression Bronchitis Chicken pox CKD (chronic kidney disease), symptom management only, stage 4 (severe) ([facility]) Claudication of calf muscles COPD (chronic obstructive pulmonary disease) ([facility]) Coronary artery disease Depression with anxiety GERD [...] Addressed This Visit Coronary artery disease involving seldovia coronary artery of seld[place]ia heart without angina pectoris Established with [facility] Cardiology Current meds: asa, amlodipine, statin, plavix, imdur, gaby, b kelsy, and prn nitro Relevant Medications [...] (HCC) Is prescribed trelegy inhaler Relevant Medications Jtpehbrtxcq-Dcuepkxpv-Gjmybh (Trelegy Ellipta) 100-62.5-25 MCG/ACT aerosol powder Primary hypertension Please check blood pressure daily and record DASH diet Limit caffeine Take medication as directed Contact office if chest pain, pressure, dizziness, shortness of breath, swelling legs Recommend slow position changes Current meds; gaby, b kelsy, calcium channel kelsy, imdur Relevant [...] grade 3 Current meds: plavix, norvasc, imdur, gaby, b kelsy, Pulmonary hypertension (HCC) Noted on ECHO from 02/18/25 pressure 46 Other Visit Diagnoses Other hyperlipidemia Relevant Medications atorvastatin (Lipitor) 80 MG tablet fenofibrate micronized (Antara) 43 MG capsule Recurrent major depression in partial remission Relevant Medications buPROPion XL (Wellbutrin XL) 300 MG 24 hr tablet busPIRone (Buspar) 15 MG tablet sertraline (Zoloft) 100 MG tablet traZODone (Desyrel) 100 MG tablet * Noa Watson NP - 03/01/2025 7:11 AM EDTAssociated Problem(s): EDITH (generalized anxiety disorder) Current meds: wellbutrin, buspar, sertraline and olanzapine * Noa Watson NP - 03/01/2025 7:10 AM EDTAssociated Problem(s): Cervical spondylosis Referred to Dr Dilip mack Xr 02/08/25 DDD mod, C5-C6 and C6 C7 * Noa Watson NP - 03/01/2025 7:09 AM EDTAssociated Problem(s): Pulmonary hypertension (HCC) Noted on ECHO from 02/18/25 pressure 46 * Noa Watson NP - 03/01/2025 7:08 AM EDTAssociated Problem(s): Chronic kidney disease, stage 4 (severe) (HCC) Continue with Nephrology Check labs yearly and prn * Noa Watson NP - 03/01/2025 7:08 AM EDTAssociated Problem(s): Coronary artery disease involving seldovia coronary artery of seld[place]ia heart without angina pectoris Established with [facility] Cardiology Current meds: asa, amlodipine, statin, plavix, imdur, gaby, b kelsy, and prn nitro * Noa Watson NP - 03/01/2025 7:08 AM EDTAssociated Problem(s): Primary hypertension Please check blood pressure daily and record DASH diet Limit caffeine Take medication as directed Contact office if chest pain, pressure, dizziness, shortness of breath, swelling legs Recommend slow position changes Current meds; gaby, b kelsy, calcium channel kelsy, imdur * Noa Watson NP - 03/01/2025 7:08 AM EDTAssociated Problem(s): Chronic diastolic heart failure (HCC) Noted on ECHO: 02/18/2525 grade 3 Current meds: plavix, norvasc, imdur, gaby, b kelys, documented in this encounterSamaritan [id number] Instructions* Patient Instructions* Noa Watson NP - 03/01/2025 1:40 PM EDT Please call dr amezcua's office to get an appt documented in this encounterSamaritan [id number] History of Present illness Narrative* Darrick Cannon PA-C - 01/27/2025 10:00 AM EDT [facility] [address] [place] [address] Patient: Kel Castillo Jr. Sex: male : 1955 Age: 69 y.o. PCP: NOA WATSON, GERARDO-MULTIFOCAL BUTTON GRINDER 01/27/2025 Kel Castillo Jr. is here for [...] kidney disease COPD (chronic obstructive pulmonary disease) ([facility]) Coronary artery disease Hypertension Neck pain History [...] Resource Strain: Medium Risk (07/22/2023) Received from [facility] Overall Financial Resource Strain (CARDIA) Difficulty of Paying Living Expenses: Somewhat hard Food Insecurity: No Food Insecurity (01/27/2025) Hunger Screening Food Insecurity - Worry: Never True Food Insecurity - Inability: Never True Transportation Needs: No Transportation Needs (07/22/2023) Received from [facility] PRAPARE - Transportation Lack of Transportation (Medical): No Lack of Transportation (Non-Medical): No Physical Activity: Inactive (07/22/2023) Received from [facility] Exercise Vital Sign Days of Exercise per Week: 0 days Minutes of Exercise per Session: 0 min Stress: Stress Concern Present (07/22/2023) Received from [facility] [employer] - Occupational Stress Questionnaire Feeling of Stress : Very much Social Connections: Moderately Isolated (07/22/2023) Received from [facility] Social Connection and Isolation Panel [NHANES] Frequency of Communication with Friends and Family: More than three times a week Frequency of Social Gatherings with Friends and Family: Twice a week Attends Muslim Services: Never Active Member of Clubs or Organizations: No Attends Club or Organization Meetings: Never Marital Status: Interpersonal Safety: Unknown (10/03/2023) Received from [facility] [place] [facility] [employer] [facility] Fear of Current or Ex-Partner: Not on file Emotionally Abused: Not on file Physically Abused: Not on file Sexually Abused: Not on file Physically or Sexually Abused: Not on file Housing Instability: Low Risk (07/22/2023) Received from [facility] Housing Stability Vital Sign Unable to [...] during discussion, demonstrated appropriate cognitive reasoning and understandingof the medical condition by asking appropriate questions [...] procedure was described in detail to the patientas well as the potential benefits of pain [...] blocks should provide information to confirm that thenoted facet arthropathy is the patient s most [...] monitoring for toxicity We do not currently prescribeany controlled substance from this practice. The spine [...] is safe to discontinue this therapy for anyplanned procedure. If it is determined that discontinuation [...] and is currently under medical management for thiscondition. This must be considered due to the possible need for a pre-anesthetic medical evaluationprior to a procedure as well as the relative contraindication of the use of NSAID therapy detailed in recent literature. This approach was discussed with the patient along with the risks and benefitsand the patient requests to proceed with this treatment plan. OARRS: Reviewed. Scribe Statement: Noa Galindo CNA, scribed for and in the presence of DARRICK CANNON PA-C who performed the above service. Noa Anderson CNA 01/27/25 1109 Darrick Cannon PA-C 01/27/25 1115 documented in this encounterPremier Health Atrium Medical CenterFundersClub [id number] Instructions* Patient Instructions* Noa Anderson CNA - 01/27/2025 10:00 AM EDT [...] take you to the nearest emergency room. Tellthe emergency room staff that you recently had a spine injection. A doctor must evaluate you for bleeding and injection complications. If you lose control over bowel, bladder, or legs: Go to the nearest emergency room. documented in this encounterCommunity [facility]06-[facility]-2025 History of Present illness Narrative* ALVARO DE LOS SANTOS - 01/19/2025 1:00 PM EDT Neck pain has gotten worse- pt perform ROM however with pain Pt is using ice and tylenol otc for pain Pt states that it does not do much for pain. * Noa Watson NP - 01/19/2025 1:00 PM EDT Images from the original note [...] pain is associated with nothing. The pain ispresent in the right side. The quality of the pain is described as aching and stabbing (sharp). Thepain is at a severity of 8/10. The [...] (ANTARA) 43 mg, Oral, Daily with breakfast Rderojysggs-Beoenwasr-Duvsuf (Trelegy Ellipta) 100-62.5-25 MCG/ACT aerosol powder 1 [...] HISTORY Past Medical History: Diagnosis Date Alcoholism ([facility]) ( quit drinking 25 years ago) Anxiety and depression ([facility]) Bronchitis Chicken pox CKD (chronic kidney disease), symptom management only, stage 4 (severe) ([facility]) Claudication of calf muscles ([facility] COPD (chronic obstructive pulmonary disease) ([facility]) Coronary artery disease ([facility]) Depression with anxiety GERD (gastroesophageal reflux disease) Heart disease High blood pressure ([facility]) High cholesterol ([facility]) History of medical problems Hernia History of migraine headaches History of psychiatric care Kidney disease Lung cancer ([facility]) JITENDRA (obstructive sleep apnea) Peripheral vascular disease ([facility]) Umbilical hernia URTI (infection of the upper [...] H/O: lung cancer EDITH (generalized anxiety disorder) ([facility]) Current meds: wellbutrin, buspar, sertraline and olanzapine Relevant Medications OLANZapine (ZyPREXA) 5 MG tablet Primary hypertension (CMS/HCC) Please check blood pressure daily and record DASH diet Limit caffeine Take medication as directed Contact office if chest pain, pressure, dizziness, shortness of breath, swelling legs Recommend slow position changes Current meds; gaby, b kelsy, calcium channel kelsy, imdur Neck [...] Relevant Orders Ambulatory referral to Pain Medicine * Noa Watson NP - 01/19/2025 6:48 AM EDTAssociated Problem(s): MCI (mild cognitive impairment) Cont with neurology and neuropsych testing * Noa Watson NP - 01/19/2025 6:48 AM EDTAssociated Problem(s): EDITH (generalized anxiety disorder) (CMS/HCC) Current meds: wellbutrin, buspar, sertraline and olanzapine * Noa Watson NP - 01/19/2025 6:47 AM EDTAssociated Problem(s): Chronic kidney disease, stage 4 (severe) (CMS/HCC) Continue with Nephrology Check labs yearly and prn * Noa Watson NP - 01/19/2025 6:47 AM EDTAssociated Problem(s): Primary hypertension (CMS/HCC) Please check blood pressure daily and record DASH diet Limit caffeine Take medication as directed Contact office if chest pain, pressure, dizziness, shortness of breath, swelling legs Recommend slow position changes Current meds; gaby, b kelsy, calcium channel kelsy, imdur * Noa Watson NP - 01/19/2025 6:47 AM EDTAssociated Problem(s): Neck pain Last appt: recommended Ice to affected area 4-5 times daily, Stretching exercises given, Trial baclofen at HS, december try 1/2 pill, No NSAID d/t renal function Had plain film xray 01/11/2025 mod-severe deg changes C5-C6 and C6-C7 Refer to pain mgmt Trial prednisone taper documented in this [facility]06-10-2025 Instructions* Patient Instructions* Noa Watson NP - 01/19/2025 1:00 PM EDT Pain mgmt documented in this [facility]04-10-2025 History of Present illness Narrative* Noa Watson NP - 11/19/2024 2:10 PM EDTAssociated Problem(s): Neck pain Ice to affected area 4-5 times daily Stretching exercises given Trial baclofen at HS, may try 1/2 pill No NSAID d/t renal function Call office in 2 weeks if not better Seems more muscle relatated * ALVARO DE LOS SANTOS - 11/19/2024 1:00 PM EDT Pt is having issues with possible stiff neck on the right side for the last three weeks pt takes tylenol for pain Left eye cataract surgery two days ago and right eye in two weeks * oNa Watson NP - 11/19/2024 1:00 PM EDT Images from the original note [...] bad days. Was on olanzapine at 7.5mg weaneddown to 5mg and then off. Less drowsiness [...] (ANTARA) 43 mg, Oral, Daily with breakfast Hmfeyutqcjg-Miqtauyik-Jrpquq (Trelegy Ellipta) 100-62.5-25 MCG/ACT aerosol powder 1 [...] HISTORY Past Medical History: Diagnosis Date Alcoholism ([facility]) ( quit drinking 25 years ago) Anxiety and depression ([facility]) Bronchitis Chicken pox CKD (chronic kidney disease), symptom management only, stage 4 (severe) ([facility]) Claudication of calf muscles ([facility]) COPD (chronic obstructive pulmonary disease) ([facility]) Coronary artery disease ([facility]) Depression with anxiety GERD (gastroesophageal reflux disease) Heart disease High blood pressure ([facility]) High cholesterol ([facility]) History of medical problems Hernia History of migraine headaches History of psychiatric care Kidney disease Lung cancer ([facility]) JITENDRA (obstructive sleep apnea) Peripheral vascular disease ([facility]) Umbilical hernia URTI (infection of the upper [...] Therapy Chronic kidney disease, stage 4 (severe) ([facility]/H[facility]) Continue with Nephrology Check labs yearly and prn EDITH (generalized anxiety disorder) ([facility]) Current meds: wellbutrin, buspar, sertraline Pt's daughter is a [employer] CERTIFIED RETINAL ANGIOGRAPHER, I have given daughter present today options for addressing anxiety: Buspar TID, olanzapine at 2.5mg or quetiapine She will talk with sister and go from there Primary hypertension ([facility]) Please check blood pressure daily and record DASH diet Limit caffeine Take medication as directed Contact office if chest pain, pressure, dizziness, shortness of breath, swelling legs Recommend slow position changes Current meds; gaby, b kelsy, calcium channel kelsy, imdur Functional gait abnormality Relevant Orders Ambulatory referral to Physical Therapy Neck pain - Primary Ice to affected area 4-5 times daily Stretching exercises given Trial baclofen at HS, may try 1/2 pill No NSAID d/t renal function Call office in 2 weeks if not better Seems more muscle relatated Relevant Medications baclofen (Lioresal) 10 MG tablet * Noa Watson NP - 11/19/2024 7:02 AM EDTAssociated Problem(s): EDITH (generalized anxiety disorder) ([facility]) Current meds: wellbutrin, buspar, sertraline Pt's daughter is a [employer] CERTIFIED RETINAL ANGIOGRAPHER, I have given daughter present today options for addressing anxiety: Buspar TID, olanzapine at 2.5mg or quetiapine She will talk with sister and go from there * Noa Watson NP - 11/19/2024 7:01 AM EDTAssociated Problem(s): Chronic kidney disease, stage 4 (severe) ([facility]) Continue with Nephrology Check labs yearly and prn * Noa Watson NP - 11/19/2024 7:01 AM EDTAssociated Problem(s): Gastroesophageal reflux disease without esophagitis Recommendations: freq small meals, nothing to eat or drink at least 2 hours prior to bed, limit caffeine, alcohol, as well as spicy foods Meds to limit or avoid if possible: NSAIDS Elevate HOB if possible Current meds: famotidine * Noa Watson NP - 11/19/2024 7:00 AM EDTAssociated Problem(s): Primary hypertension (CMS/HCC) Please check blood pressure daily and record DASH diet Limit caffeine Take medication as directed Contact office if chest pain, pressure, dizziness, shortness of breath, swelling legs Recommend slow position changes Current meds; gaby, b kelsy, calcium channel kelsy, imdur * Noa Watson NP - 11/19/2024 7:00 AM EDTAssociated Problem(s): Atherosclerosis of arteries of extremities (CMS/HCC) Asa, plavix, statin * Noa Watson NP - 11/19/2024 7:00 AM EDTAssociated Problem(s): Coronary artery disease involving [place] coronary artery of [place] heart without angina pectoris (CMS/HCC) Established with [facility] Cardiology Current meds: asa, amlodipine, statin, plavix, imdur, gaby, b kelsy, and prn nitro * Noa Watson NP - 11/19/2024 6:59 AM EDTAssociated Problem(s): Chronic obstructive pulmonary disease, unspecified Is prescribed trelegy inhaler documented in this [facility]04-10-2025 Instructions* Patient Instructions* Noa Watson NP - 11/19/2024 1:00 PM EDT Anxiety; we could try increase buspirone to 15mg three times daily Or consider adding olanzapine at 2.5mg at bed time ??low dose of quetiapine like 25mg at bedtime I will order PT and speech therapy at [facility] Neck: try stretching exercises, baclofen 10mg pill at bedtime as needed for muscle spasms documented in this [facility]03-18-2025 Evaluation note* Diagnosis Onset Date Resolution Status Admit Date Anemia acuteMarch 2024 3:58pmCAD (coronary artery disease) of artery bypass graft acuteMarch 2024 3:58pmChronic kidney disease, stage 3bacuteMarch 2024 3:58pmHyperkalemiaacuteMarch 2024 3:58pmHyperlipemiaacuteMarch 2024 3:58pmHypertensive chronic kidney disease with stage 1 through stage 4 chronic kiacuteMarch 2024 3:58pmAnemiaacuteJune 2024 4:22pmCAD (coronary artery disease) of artery bypass graftacuteJune 2024 4:22pm Chronic kidney disease, stage 3bacuteJune 2024 4:22pmHyperkalemiaacuteJune 2024 4:22pmHyperlipemiaacuteJune 2024 4:22pmHypertensive chronic kidney disease with stage 1 through stage 4 chronic kiacuteJune 2024 4:22pm [facility] Work Phone: [phone]) 853-715103-04-2025 [facility]iology [facility] Note Chief Complaint: Patient here [...] occluded right coronary artery. 2. Severe 3-vessel seldovia coronary artery disease. 3. Patent left internal [...] Laboratory Report FINAL IMPRESSIONS: 1. Severe 3-vessel s[place] coronary artery disease. 2. A 2/3 bypass grafts patent; the radial artery graft to the posterior descending artery is occluded. 3. Severe, heavily calcific lesion of the right common femoral artery; this is a new angiographic finding. Assessment: Coronary a (more content not included)...[facility] 10-12-2024 Instructions* Patient Instructions* Eun Trent, - 10/12/2024 11:31 AM EST Please do physical therapy and speech therapy. Please follow-up with your sleep apnea doctor about a better mask as this can help memory. Follow-up in six months. He and his family may benefit from the following community resources: [facility] Agencies on Aging -- , https://aging.[place].gov/about-us/who-we-are/yykc-grfzabnz-xt-aging Visit your local Senior Center to participate in stimulating activities and socialize with others -https://www.careMedine.org/kywd18_nzxx_gdmeyw_yxpgllw.htm He can use strategies to help optimize [...] for Neurodegenerative Delay (MIND) diet, is recommended. 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 Re-evaluation in approximately 18-24 months (or as needed). documented [facility]25 NoteHNO ID: [id number] Author: MANDEEP LATASHA, EUN, DO Service: ? Author Type: Physician Type: Progress Notes Filed: 10/12/2024 14:47 Note Text: [facility] General Neurology Follow up/ Established patient visit Individuals who were included in, or assisted with the encounter were: Samir Castillo Eun Black, Chief Complaint/Issues: Samir Castillo is a 69 year old male seen in the [facility] for General Neurology for: Memory [...] from lightheadedness Assessment AND Plan 10/12/2024 - NeurologyEun DO ASSESSMENT Mr. Jaramillo, is a 69 year old man with untreated sleep apnea here for follow-up of (more content not included)...[facility]03-03-2025 History of Present illness Narrative* Eun Trent DO - 10/12/2024 11:28 AM EST Images from the original note were not included. [facility] General Neurology Follow up/ Established patient visit Individuals who were included in, or assisted with the encounter were: Samir Castillo Eun Black DO Chief Complaint/Issues: Samir Castillo is a 69 year old male seen in the [facility] for General Neurology for: Memory [...] Assessment & Plan 10/12/2024 - General Neurology, Eun Black, DO ASSESSMENT Mr. Jaramillo, is a [...] 1/2 TABLETS BY MOUTH EVERY DAY omega 8-kuz-liw-fish oil (FISH OIL) 100-160-1,000 mg cap Take [...] which included preparing to see the patient, himf-gy-hjrg patient care, completing clinical documentation, obtaining and/or reviewing separately obtained history, performing a medically appropriate examination, counseling and educating the pat ient/family/caregiver, and ordering medications, tests, or procedures. Eun Black DO 10/12/2024 PROMIS [employer] Physical [...] Probability Score: 70 (Recommend sleep study) * Santiago Jay MA - 10/12/2024 11:21 AM EST [...] 70 (Recommend sleep study) documented in this [facility]-2025 NoteHNO ID: [id number] Author: SANTIAGO JAY MA Service: ? Author Type: Manager Digital Ad Operations Type: Progress Notes Filed: 10/12/2024 14:47 Note [...] Sleep Apnea Probability Score: 70 (Recommend sleep study)[facility]02-27-2025 History of Present illness Narrative* Noa Watson NP - 10/08/2024 5:51 PM ESTAssociated Problem(s): MCI (mild cognitive impairment) Cont with neurology and neuropsych testing * Noa Watson NP - 10/08/2024 5:50 PM ESTAssociated Problem(s): Chronic kidney disease, stage 4 (severe) (CMS/HCC) Continue with Nephrology * Noa Watson NP - 10/08/2024 1:40 PM EST [...] no compliance problems. Hypertensive end-organ damage includes CAD/NV. Heart Problem This is a chronic problem. [...] (ANTARA) 43 mg, Oral, Daily with breakfast Vqahnqfamxw-Tjzzqdkum-Lgqkez (Trelegy Ellipta) 100-62.5-25 MCG/ACT aerosol powder 1 [...] HISTORY Past Medical History: Diagnosis Date Alcoholism ([facility]) ( quit drinking 25 years ago) Anxiety and depression ([facility]) Bronchitis Chicken pox CKD (chronic kidney disease), symptom management only, stage 4 (severe) ([facility]/HCC) Claudication of calf muscles ([facility]/HCC) COPD (chronic obstructive pulmonary disease) (CMS/HCC) Coronary artery disease ([facility]/HCC) Depression with anxiety GERD (gastroesophageal reflux disease) Heart disease High blood pressure (CMS/HCC) High cholesterol ([facility]/HCC) History of medical problems Hernia History of migraine headaches History of psychiatric care Kidney disease Lung cancer (CMS/HCC) JITENDRA (obstructive sleep apnea) Peripheral vascular disease ([facility]/HCC) Umbilical hernia URTI (infection of the upper [...] and neuropsych testing Coronary artery disease involving s[place] coronary artery of [place] heart without angina pectoris ([facility]) - Primary Current meds: plavix, amlodipine, statin, b kelsy, nitroglycerin prn No acute symptoms, cont with [facility] Cardiology Relevant Medications clopidogrel (Plavix) 75 MG tablet isosorbide mononitrate ER (Imdur) 60 MG 24 hr tablet metoprolol tartrate (Lopressor) 50 MG tablet Mixed hyperlipidemia ([facility]) On statin and fenofibrate Check labs yearly and prn dose changes Relevant Medications atorvastatin (Lipitor) 80 MG tablet fenofibrate micronized (Antara) 43 MG capsule Chronic kidney disease, stage 4 (severe) ([facility]) Continue with Nephrology Gastroesophageal reflux disease without esophagitis Recommendations: freq small meals, nothing to eat or drink at least 2 hours prior to bed, limit caffeine, alcohol, as well as spicy foods Meds to limit or avoid if possible: NSAIDS Elevate HOB if possible Current med: pepcid Relevant Medications famotidine (Pepcid) 20 MG tablet EDITH (generalized anxiety disorder) ([facility]) Current meds: wellbutrin XL, buspar, sertraline, and trazodone EDITH 7=4 Had recent neuropsych testing has fu appt in a few weeks Relevant Medications sertraline (Zoloft) 100 MG tablet traZODone (Desyrel) 100 MG tablet Chronic obstructive pulmonary disease, unspecified ([facility]) Current meds: albuterol, trelegy Cannot afford trelegy, but does help breathing #2 samples trelegy: 100/25, XM5N, exp 01/04 Recurrent major depressive disorder, in full remission ([facility]) Current med: wellbutrin, sertralin, and trazodone PHQ 9=9 Primary hypertension ([facility]) Please check blood pressure daily and record [...] Recurrent major depression in partial remission (HCC) ([facility]) Relevant Medications buPROPion XL (Wellbutrin XL) 300 MG 24 hr tablet busPIRone (Buspar) 15 MG tablet sertraline (Zoloft) 100 MG tablet traZODone (Desyrel) 100 MG tablet * Noa Watson NP - 10/08/2024 7:12 AM ESTAssociated Problem(s): Recurrent major depressive disorder, in full remission ([facility]) Current med: wellbutrin, sertralin, and trazodone PHQ 9=9 * Noa Watson NP - 10/08/2024 7:11 AM ESTAssociated Problem(s): Mixed hyperlipidemia ([facility]) On statin and fenofibrate Check labs yearly and prn dose changes * Noa Watson NP - 10/08/2024 7:10 AM ESTAssociated Problem(s): EDITH (generalized anxiety disorder) ([facility]) Current meds: wellbutrin XL, buspar, sertraline, and trazodone EDITH 7=4 Had recent neuropsych testing has fu appt in a few weeks * Noa Watson NP - 10/08/2024 7:09 AM ESTAssociated Problem(s): Gastroesophageal reflux disease without esophagitis Recommendations: freq small meals, nothing to eat or drink at least 2 hours prior to bed, limit caffeine, alcohol, as well as spicy foods Meds to limit or avoid if possible: NSAIDS Elevate HOB if possible Current med: pepcid * Noa Watson NP - 10/08/2024 7:08 AM ESTAssociated Problem(s): Primary hypertension (CMS/HCC) Please check blood pressure daily and record DASH diet Limit caffeine Take medication as directed Contact office if chest pain, pressure, dizziness, shortness of breath, swelling legs Recommend slow position changes Current meds: amlodipine, imdur, b kelsy * Noa Watson NP - 10/08/2024 7:07 AM ESTAssociated Problem(s): Coronary artery disease involving s[place] coronary artery of s[place] heart without angina pectoris (CMS/HCC) Current meds: plavix, amlodipine, statin, b kelsy, nitroglycerin prn No acute symptoms, cont with [facility] Cardiology * Noa Watson NP - 10/08/2024 7:06 AM ESTAssociated Problem(s): Chronic obstructive pulmonary disease, unspecified (CMS/HCC) Current meds: albuterol, trelegy Cannot afford trelegy, but does help breathing #2 samples trelegy: 100/25, XM5N, exp 01/04 documented in this [facility]02-27-2025 Instructions* Patient Instructions* Noa Watson NP - 10/08/2024 1:40 PM EST No med dose changes documented in this [facility]01-28-2025 NoteHNO ID: [id number] Author: MISTY POLO, PhD Service: ? Author Type: Psychologist Type: Progress Notes Filed: 09/10/2024 16:35 Note Text: [facility] Department of Neurology Section of Neuropsychology Neuropsychological Evaluation Report CONFIDENTIAL Patient: Samir Castillo Date of : 1955 Referred by: Eun Black MD (Neurology) Education: 10 Handedness: R Language(s): Pakistani Date of Evaluation: 09/08/2024 Mr. Castillo is [...] no Problems with mother's /delivery: no Early QUALITY ASSOCIATE infection, high fever, significant childhood illness: no SCHOOL HISTORY: Years of education completed: 10; left school early because he did not like it. 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01-28-2025 History of Present illness Narrative* Misty Polo, PhD - 09/08/2024 9:58 AM EST [facility] Department of Neurology Section of Neuropsychology Neuropsychological Evaluation Report CONFIDENTIAL Patient: Samir Castillo Date of : 1955 Referred by: Eun Black MD (Neurology) Education: 10 Handedness: R Language(s): Pakistani Date of Evaluation: 09/08/2024 Mr. Castillo is [...] no Problems with mother's /delivery: no Early QUALITY ASSOCIATE infection, high fever, significant childhood illness: no SCHOOL HISTORY: Years of education completed: 10; left school early because he did not like it. 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 Ivins non-verbal memory test, new learning was similarly [...] may benefit from the following community resources: [facility] Agencies on Aging -- , https://aging.[place].gov/about-us/who-we-are/syia-iykqpeai-vv-aging Visit your local Senior Center to participate in stimulating activities and socialize with others -https://www.careoh[place].org/hlxq37_iesu_agjkuc_fpristp.htm He can use strategies to help optimize [...] for Neurodegenerative Delay (MIND) diet, is recommended. https://www.abhay.nih.gov/health/uylq-ql-xi-know-ab kwi-lbai-ssj-eqwomhtarn-zsqjfktnow-wreouxh If he is to continue doing complex tasks such as patient financial services manager on his own, his family members are encouraged to routinely review his work and assist as necessary. Re-evaluation in approximately 18-24 months (or as needed). These results have not been reviewed with the patient, but he will be provided access to this note via [employer]. It has been a pleasure to participate in his care. Please feel free to contact me if you have any questions regarding this report or my recommendations. Misty Polo, PhD, ABPP-CN Board Certified Clinical Neuropsychologist [facility] [place] The purpose of this evaluation was explained [...] = 2 hours Neuropsychological test administration/scoring by management professor = 4 hours TESTS ADMINISTERED: Waite Anxiety Inventory, Waite Depression Inventory-2, Mas Judgment of Line Orientation (Form H), [place] Naming Test-2, Brief Visuospatial Memory Test- Revised (Form 2), Clinical Interview, Jessie Chowdhury Executive Function System (Color-Word Interference), Castro Verbal Learning Test-Revised (Form 2), Language Screen, Performance Validity Testing, Gregory Osterrieth Complex Figure Test (Miles System, copy), [place] Making Test (Parts A & B), Verbal Fluency (CFL, Animals/Fruits/Vegetables), Veena Adult Intelligence Scale-IV (Digit Span, Coding, Matrix Reasoning), Veena Memory Scale-IV (Logical Memory), [place] Card Sorting Test - 128 documented [facility] History of Present illness Narrative* [...] kidney disease) stage 4, GFR 15-29 ml/min ([facility]) Following with Nephrology. Avoid nephrotoxic agents. Continue [...] Addressed This Visit Coronary artery disease involving s[place]ia coronary artery of [place] heart without angina pectoris ([facility]) Relevant Medications nitroglycerin (Nitrostat) 0.4 MG SL tablet Other hyperlipidemia ([facility]) Currently taking Atorvastatin 80mg Denies any myalgias. Continue current regimen. CKD (chronic kidney disease) stage 4, GFR 15-29 ml/min ([facility]) Following with Nephrology. Avoid nephrotoxic agents. Continue to monitor. Primary hypertension ([facility]) - Primary Currently taking amlodipine Imdur Metoprolol [...] referral to Physical Therapy documented in this encounterSamaritan [id number] Instructions* Patient Instructions* Jayy Coronado NP - [...] TO THE EMERGENCY ROOM!!! documented in this encounterSamaritan [id number] History of Present illness Narrative* Claire Vilchis [...] PATIENT PRESENTS WITH AN IMPLANTABLE OR ATTACHED ULTRASOUND SONOGRAPHER: No RADIOLOGY DEPARTMENT: CT; Exam(s) Completed: Brain PERIPHERAL IV DATA: Not applicable SIGNED BY: KORY Bolivar May 12, 2024 8:35 AM documented in this encounterDiley [facility] Medical Center10-01-2024 NoteHNO ID: [id number] Author: CLAIRE VILCHIS CT Service: ? Author Type: Gr[employer] 9 Thru 12 Visiting Teacher Type: Progress Notes Filed: 05/12/2024 08:35 Note [...] PATIENT PRESENTS WITH AN IMPLANTABLE OR ATTACHED ULTRASOUND SONOGRAPHER: No RADIOLOGY DEPARTMENT: CT; Exam(s) Completed: Brain PERIPHERAL IV DATA: Not applicable SIGNED BY: KORY Bolivar May 12, 2024 8:35 [facility]09-23-2024 Instructions* Patient Instructions* Eun Trent DO - 05/04/2024 10:[address] scan of brain Physical therapy Follow-up after neuropsych Please do not climb ladders or do other activities for high fall risk. documented in this encounterDiley Ridge Medical Center09-23-2024 History of Present illness Narrative* Eun Trent DO - 05/04/2024 9:30 AM EDT Images from the original note were not included. [facility] Follow up/ Established patient visit Individuals who were included in, or assisted with the encounter were: Samir Castillo Eun Black DO Chief Complaint/Issues: Samir Castillo is a 69 year old male seen in the [facility] for: Memory [...] over medications. 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 MOCA December 2021 [...] Assessment & Plan 05/04/2024 - General Neurology, Eun Black, DO ASSESSMENT Mr. Castillo is a [...] 1/2 TABLETS BY MOUTH EVERY DAY omega 6-tpm-tuw-fish oil (FISH OIL) 100-160-1,000 mg cap Take [...] which included preparing to see the patient, qbrl-iw-fsnw patient care, completing clinical documentation, obtaining and/or reviewing separately obtained history, performing a medically appropriate examination, counseling and educating the pat ient/family/caregiver, and ordering medications, tests, or procedures. Eun Black DO 05/04/2024 PROMIS Global Health Physical [...] population and warrants attention documented in this encounterDiley Ridge Medical Center09-23-2024 NoteHNO ID: [id number] Author: EUN TRENT DO Service: ? Author Type: Physician Type: Progress Notes Filed: 05/04/2024 22:17 Note Text: [facility] Follow up/ Established patient visit Individuals who were included in, or assisted with the encounter were: Samir Castillo Eun Black DO Chief Complaint/Issues: Samir Castillo is a 69 year old male seen in the [facility] for: Memory [...] over medications. 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 MOCA December 2021 [...] Assessment AND Plan 05/04/2024 - General Neurology, Eun Black, DO ASSESSMENT Mr. Castillo is a [...] 50 mg tablet,extended release (more content not included)...[facility]02-08-2024 History of Present illness Narrative* Shaikh Cornelio MD - 09/19/2023 5:35 PM ESTAssociated Problem(s): EDITH (generalized anxiety disorder) ([facility]) Improved now. C/w current regimen. * Shaikh Cornelio MD - 09/19/2023 5:35 PM ESTAssociated Problem(s): Other hyperlipidemia (CMS/HCC) Check Lipid panel. * Shaikh Cornelio MD - 09/19/2023 5:35 PM ESTAssociated Problem(s): Recurrent major depression in partial remission (HCC) ([facility]) Symptoms improved and well controlled since Zoloft [...] kidney disease) stage 4, GFR 15-29 ml/min ([facility]) Has an appointment with Nephrology. Avoid NSAIDS. C/w current regimen. * Shaikh Cornelio MD - 09/19/2023 5:32 PM ESTAssociated Problem(s): Coronary artery disease involving [place] coronary artery of [place] heart without angina pectoris ([facility]) S/p CABG. On ASA, BB, Imdur, plavix, statin Denies CP, SOB, palpitations. Following [facility] cardiology. * Shaikh Cornelio MD [...] in the morning. Take with meals. [DISCONTINUED] Gsrtzcbpitu-Jltejwxmh-Yudfvf (Trelegy Ellipta) 100-62.5-25 MCG/ACT aerosol powder Inhale [...] Recurrent major depression in partial remission (HCC) ([facility]) Symptoms improved and well controlled since Zoloft [...] Comprehensive metabolic panel Coronary artery disease involving [place] coronary artery of [place] heart without angina pectoris ([facility]) S/p CABG. On ASA, BB, Imdur, plavix, statin Denies CP, SOB, palpitations. Following [facility] cardiology. Relevant Medications aspirin 81 MG EC tablet isosorbide mononitrate ER (Imdur) 60 MG 24 hr tablet metoprolol tartrate (Lopressor) 50 MG tablet clopidogrel (Plavix) 75 MG tablet Other Relevant Orders CBC and differential Comprehensive metabolic panel Other hyperlipidemia ([facility]) Check Lipid panel. Relevant Medications atorvastatin (Lipitor) 80 MG tablet fenofibrate micronized (Antara) 43 MG capsule Other Relevant Orders Lipid panel CKD (chronic kidney disease) stage 4, GFR 15-29 ml/min ([facility]) Has an appointment with Nephrology. Avoid NSAIDS. C/w current regimen. Relevant Orders CBC and differential Comprehensive metabolic panel Protein, urine, random Creatinine, urine, random Gastroesophageal reflux disease without esophagitis Relevant Medications famotidine (Pepcid) 20 MG tablet EDITH (generalized anxiety disorder) ([facility]) Improved now. C/w current regimen. Relevant Medications sertraline (Zoloft) 100 MG tablet traZODone (Desyrel) 100 MG tablet Traumatic complete tear of left rotator cuff - Primary Noted on MRI - following Orthopedics. Patient has a follow up appointment next week and it appears that he will likely need surgery for it. Other Visit Diagnoses Primary hypertension ([facility]) Relevant Medications amLODIPine (Norvasc) 5 MG tablet isosorbide mononitrate ER (Imdur) 60 MG 24 hr tablet metoprolol tartrate (Lopressor) 50 MG tablet Other Relevant Orders CBC and differential Comprehensive metabolic panel Chronic obstructive pulmonary disease, unspecified COPD type ([facility]) Relevant Medications Frqizujhnrz-Fzdejpzbv-Jeamdo (Trelegy Ellipta) 100-62.5-25 MCG/ACT aerosol powder No follow-ups on file. documented in this encounterSamaritan [id number] Instructions* Patient Instructions* Eun Kaufman DO - 08/15/2022 4:17 PM EST Please work with your doctor on the sleep apnea and psychiatrist for depression. Follow-up in 6 months. documented in this encounterDiley [facility] Center01-04-2023 History of Present illness Narrative* Eun Kaufman DO - 08/15/2022 3:47 PM EST Images from the original note were not included. [facility] Follow up/ Established patient visit Individuals who were included in, or assisted with the encounter were: Samir Castillo Eun Kaufman DO Chief Complaint/Issues: Samir Castillo is a 67 year old male seen in the [facility] for: Follow-up [...] Assessment & Plan 08/15/2022 - General Neurology, Eun Kaufman, DO ASSESSMENT Mr. Castillo is a [...] AND 1/2 TABLETS BY MOUTH EVERY DAY Wterlivarkajo-Omvnmpot-Gitqhe (MULTIVITAMIN 50 PLUS) tab Take 1 tablet by mouth once daily. omega 8-kno-uil-fish oil (FISH OIL) 100-160-1,000 mg cap Take [...] which included preparing to see the patient, uipb-eu-xzbx patient care, completing clinical documentation, obtaining and/or reviewing separately obtained history, performing a medically appropriate examination, counseling and educating the pat ient/family/caregiver, and ordering medications, tests, or procedures. Eun Kaufman DO documented in this encounterDiley Ridge Medical Center11-29-2022 Evaluation note* Encounter Date Diagnosis [...] Lab as above prior to next visit Jun,KI (acute kidney injury) (ICD-10 - N17.9)This has resolved. Patient could have worsening kidney function from fenofibrate which is known to cause worsening kidney function. Creatinine peaked at 2.1 mg/dL jin 2020. Serum creatinine last visit1.9 mg/dL UA is benign. Jun,Hypertensive chronic kidney disease w stg 1-4/unsp chr kdny (ICD-10 - I12.9)Blood pressure is well controlled.we will continue same dose of Norvasc, metoprolol and Imdur.continue low-salt diet and monitor blood pressure at home. Jun,AD (coronary artery disease) of artery bypass graft (ICD-10 - I25.810)Patient has a remote history of CABG. He does see cardiology on an annual basis. He denies episodesof congestive heart failure or chest pain. He is not on any diuretics. Jun,Hyperlipemia (ICD-10 - E78.5)He follow-up with his PCP Dr. Arellano for lipid profile. Jun,Hyperkalemia (ICD-10 - E87.5)last visit potassium was slightly better at 5.4 mmol/L. K is 4.3 mg/dl this visit [facility] 10-25-2022 Evaluation note* Encounter Date Diagnosis Assessment Notes Treatment Notes Treatment Clinical Notes May, Chronic obstructive pulmonary disease, unspecified COPD type (ICD- 10 - J44.9) May,History of lung cancer (ICD-10 - Z85.118) May,tatus post lobectomy of lung (ICD-10 - Z90.2) May,Lung nodule (ICD-10 - R91.1) May,bstructive sleep apnea (ICD-10 - G47.33) [facility] 10-18-2022 Evaluation note* Encounter Date Diagnosis Assessment Notes Treatment Notes Treatment Clinical Notes May, Depression, major, recurrent, mo derate (ICD-10 - F33.1) [facility] 08-30-2022 Instructions* Patient Instructions* Eun Kaufman DO - 04/10/2022 10:43 AM EDT [...] Follow-up in four months. documented in this encounterDiley [facility] Medical Center08-30-2022 History of Present illness Narrative* Eun Kaufman DO - 04/10/2022 10:11 AM EDT Images from the original note were not included. [facility] New Patient Evaluation Consulting Provider: Jessie Bright [id number] [facility] [id number] Individuals who were included in, or assisted with the encounter were: Samir Castillo Eun Kaufman DO Chief Complaint/Issues: Samir Castillo is a 66 year old male seen in the [facility] for: Memory [...] notices problems with both short term and computer terminal operator memory Language: yes, word finding problems. [...] Assessment & Plan 04/12/2022 - General Neurology, Eun Kaufman, DO ASSESSMENT Mr Castillo is a [...] AND 1/2 TABLETS BY MOUTH EVERY DAY Qyhkrjqcqmlll-Lyqppyao-Ujqdja (MULTIVITAMIN 50 PLUS) tab Take 1 tablet by mouth once daily. omega 7-fhk-lsc-fish oil (FISH OIL) 100-160-1,000 mg cap Take [...] which included preparing to see the patient, kjgt-gw-yhda patient care, completing clinical documentation, obtaining and/or reviewing separately obtained history, performing a medically appropriate examination, and counseling and educating the patient/family/caregiver. Eun Kaufman DO documented in this encounterDiley [facility] Medical Center08-02-2022 Evaluation note* Encounter Date Diagnosis Assessment Notes Treatment Notes Treatment Clinical Notes Mar, Depression, major, recurrent, mo derate (ICD-10 - F33.1) [facility] 07-25-2022 Evaluation note* Encounter Date Diagnosis Assessment Notes Treatment Notes Treatment Clinical Notes Feb, Depression, major, recurrent, mo derate (ICD-10 - F33.1) [facility] 07-19-2022 Evaluation note* Encounter Date Diagnosis Assessment Notes Treatment Notes Treatment Clinical Notes Feb, Chronic obstructive pulmonary disease, unspecified COPD type (ICD- 10 - J44.9) Samples of Trelegy and education please Feb,tatus post lobectomy of lung (ICD-10 - Z90.2) Feb,History of lung cancer (ICD-10 - Z85.118) Feb,Lung nodule (ICD-10 - R91.1) Feb,yspnea on exertion (ICD-10 - R06.09) Feb,leep apnea, unspecified type (ICD-10 - G47.30) [facility] 07-01-2022 Miscellaneous Notes* Telephone Encounter - Mariana Mary Kate - 02/09/2022 1:57 PM EDT Patients daughter [...] Dr. Roche Message text documented in this encounterDiley Ridge Medical Center07-01-2022 History of Present illness Narrative* Brayan Trent CRT - 02/09/2022 10:41 AM EDT PULM FUNCTION SMARTBLOCK: Provider: Prince Aby MD Spirometry w/BD: 1 System: MC9 - [id number] documented in this encounterDiley Ridge Medical Center06-30-2022 History of Present illness Narrative* [...] 08, 2022 4:21 PM documented in this encounterDiley Ridge Medical Center06-20-2022 Evaluation note* Encounter Date Diagnosis Assessment Notes Treatment Notes Treatment Clinical Notes Jan, Shortness of breath (ICD-10 - R0 6.02) Patient had CT scan done which showed no acute processes. Also had recent PFTs which showed mild evidence of COPD. He was started on Spiriva and is using an albuterol inhaler. States that overall he has had very little relief. Also reports that he saw his android programmer recently who does not think that his shortness of breath is related to his heart. He did have an appointment with [facility] but has since decided to see pulmonology in [place]. Given his PFT and CT results I do not think he is going to have dramatic improvement with an inhaler regimen but we will go ahead and add dual ICS LABA at this time. I feel most likely this is related to his history of lung cancer and resection. We will defer further management to pulmonology. Jan, aytime sleepiness (ICD-10 - R40.0)Patient and his are asking about his doxepin as they received a letter stating that it can cause side effects of drowsiness, cognitive deficit, etc. I did explain that this is true however I am uncertain if it is causing his current symptoms of daytime drowsiness and memory deficit. I do recommend he discuss with Dr. Hurtado at their upcoming appointment. [facility] 05-27-2022 Evaluation note* Encounter Date Diagnosis Assessment Notes Treatment Notes Treatment Clinical Notes December, Obstructive lung disease (ICD-10 - J44.9) December,ulmonary nodule (ICD-10 - R91.1) [facility] 05-23-2022 Evaluation note* Encounter Date Diagnosis Assessment Notes Treatment Notes Treatment Clinical Notes December, Shortness of breath (ICD-10 - R0 6.02) [facility] 05-17-2022 Evaluation note* Encounter Date Diagnosis Assessment Notes Treatment Notes Treatment Clinical Notes December, Shortness of breath (ICD-10 - R0 6.02) Patient does have history of lung cancer. In the past I tried to get a low-dose CT for monitoring but given the fact that he quit smoking a number of years ago it has been denied. Given the fact thathe has had some worsening shortness of breath [...] has not been reviewed yet. 17 Dec, 2021Essential hypertension (ICD-10 - I10)Blood pressure elevated in office today. Per chart review this is a somewhat isolated event. Statesthat he has been checking his pressure periodically at home and typically gets readings in the 130sover 80s. Given this information I will hold off on adjusting blood pressure medication. He will follow-up within the next month or so we will recheck. [facility] 05-13-2022 History of Present illness Narrative* Jessie Bright MD - 12/22/2021 8:41 AM EDT Images from the original note were not included. [facility] New Patient Evaluation Consulting Provider: SELF Individuals who were included in, or assisted with the encounter were: Samir Olmedokaren Bright MD Chief Complaint/Issues: Samir Castillo is a 66 year old male seen in the [facility] for: 1. [...] notices problems with both short term and computer terminal operator memory Language: yes, word finding problems. [...] AND 1/2 TABLETS BY MOUTH EVERY DAY Bxygywuaszirw-Kwrqfgro-Pgiywr (MULTIVITAMIN 50 PLUS) tab Take 1 tablet by mouth once daily. omega 2-nkt-lfd-fish oil (FISH OIL) 100-160-1,000 mg cap Take [...] which included preparing to see the patient, ojxv-da-ffdi patient care, completing clinical documentation and performing a medically appropriate examination. Jessie Bright MD documented in this encounterDiley Ridge Medical Center05-09-2022 Evaluation note* Encounter Date Diagnosis Assessment Notes Treatment Notes Treatment Clinical Notes December, Depression, major, recurrent, mo derate (ICD-10 - F33.1) [facility] 10-12-2021 Evaluation note* Encounter Date Diagnosis Assessment Notes Treatment Notes Treatment Clinical Notes May, Chronic kidney disease, stage 3b (ICD-10 - N18.32) Patient has a mild CKD stage III possibly related to atherosclerotic renovascular disease and hypertension. Serum creatinine was 1.6 mg/dL in 2019 currently up to 2.1 mg/dL. It is not clear if he hasacute component of just progression of underlying CKD. As stated above, renal panel will be rechecked in 3 months with further work-up if indicated. Most likely he has progression of CKD. May,KI (acute kidney injury) (ICD-10 - N17.9) Creatinine [...] metoprolol. He follow-up with Dr. Rubio, his android programmer in [place]. He stated that his heart looks fine. He does not know the ejection fraction. He denies chest pain or CHF. With recheck renal panel in 2 to 3-month and if creatinine continues to increase, will obtain another ultrasound since the patient has a history of cancer lung. He does not take any chemotherapy and he stated that the cancer has been cured. May,Hypertensive chronic kidney disease w stg 1-4/unsp chr kdny (ICD-10 - I12.9) Blood pressure is mildly elevated. He stated that blood pressure at home also runs between 140-150 systolic. [place] systolic blood pressure at home should be below 130s. He was advised to increase amlodipine to 10 mg daily and continue monitor home blood pressure. He has no edema. Continue low-salt diet. 12 May,AD (coronary artery disease) of artery bypass graft (ICD-10 - I25.810) Patient has a remote history of CABG. He does see cardiology on an annual basis. He denies episodesof congestive heart failure or chest pain. He is not on any diuretics. May,Hyperlipemia (ICD-10 - E78.5) He follow-up with his PCP Dr. Arellano for lipid profile. 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)- Primary Other persistent mental disorders due to conditions classified elsewhere Cognitive impairment, mild, so stated Mild cognitive impairment, so stated Depression, unspecified depression type documented in this encounter [facility] noteNo InformationNortMercy Philadelphia Hospital [employer] Other Evaluation noteNoLehigh Valley [facility] [employer] Other Evaluation note* Diagnosis Cognitive impairment, mild, so stated- Primary Mild cognitive impairment, so stated documented in this encounter [facility] note* Diagnosis Shortness of breath- Primary [facility]* Diagnosis Cognitive impairment, mild, so stated Mild cognitive impairment, so stated 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) Other persistent mental disorders due to conditions classified elsewhere Depression, unspecified depression type documented in this encounter [facility]* Diagnosis Shortness of breath documented in this encounter [facility]* Diagnosis Recurrent major depression in partial remission (HCC)- Primary Major depressive disorder, recurrent episode, in partial or unspecified remission MCI (mild cognitive impairment) Mild cognitive impairment, so stated documented in this encounter [facility] noteNo assessment information availableBethesda North Hospital Work Phone: Evaluation note* Diagnosis MCI (mild cognitive impairment)- Primary Mild cognitive impairment, so stated documented in this encounter [facility] noteNort [employer] Other Evaluation note* Diagnosis Traumatic complete tear of left rotator cuff, subsequent encounter- Primary Recurrent major depression in partial remission (HCC) ([facility]) Major depressive disorder, recurrent episode, in partial or unspecified remission Other hyperlipidemia ([facility]) EDITH (generalized anxiety disorder) ([facility]) Generalized anxiety disorder CKD (chronic kidney disease) stage 4, GFR 15-29 ml/min ([facility]) Chronic kidney disease, Stage IV (severe) Gastroesophageal reflux disease without esophagitis Esophageal reflux Coronary artery disease involving [place] coronary artery of [place] heart without angina pectoris ([facility]) Primary hypertension ([facility]) Unspecified essential hypertension Chronic obstructive pulmonary disease, unspecified COPD type ([facility]) documented in this encounter [facility]* Diagnosis Onset Date Resolution Status Anemia acuteCAD (coronary artery disease) of artery bypass graftacuteChronic kidney disease, stage 2sezfvgRjuskxgsclfyj[id number] [facility] Work Phone: Evaluation note* Diagnosis Dyspnea and respiratory abnormalities- Primary Other dyspnea and respiratory abnormality Centrilobular emphysema (HCC) Other emphysema Class 1 obesity due to excess calories with serious comorbidity and body mass index (BMI) of 32.0 to 32.9 in adult Sleep-disordered breathing Other sleep disturbances Memory loss- Primary Abnormality of gait documented in this encounter [facility]* Diagnosis Dyspnea and respiratory abnormalities- Primary Other dyspnea and respiratory abnormality Centrilobular emphysema (HCC) Other emphysema Class 1 obesity due to excess calories with serious comorbidity and body mass index (BMI) of 32.0 to 32.9 in adult Sleep-disordered breathing Other sleep disturbances Memory loss documented in this encounter [facility]* Diagnosis Traumatic complete tear of left rotator cuff, subsequent encounter- Primary Recurrent major depression in partial remission (HCC) ([facility]) Major depressive disorder, recurrent episode, in partial or unspecified remission Other hyperlipidemia ([facility]) EDITH (generalized anxiety disorder) ([facility]) Generalized anxiety disorder CKD (chronic kidney disease) stage 4, GFR 15-29 ml/min ([facility]) Chronic kidney disease, Stage IV (severe) Gastroesophageal reflux disease without esophagitis Esophageal reflux Coronary artery disease involving [place] coronary artery of [place] heart without angina pectoris ([facility]) Primary hypertension ([facility]) Unspecified essential hypertension Chronic obstructive pulmonary disease, unspecified COPD type ([facility]) Chronic obstructive pulmonary disease, unspecified COPD type ([facility])- Primary Coronary artery disease involving [place] coronary artery of [place] heart without angina pectoris ([facility]) CKD (chronic kidney disease) stage 4, GFR 15-29 ml/min ([facility]) Chronic kidney disease, Stage IV (severe) Gastroesophageal reflux disease without esophagitis Esophageal reflux Recurrent major depressive disorder, in full remission ([facility]) Other hyperlipidemia ([facility]/HCC) EDITH (generalized anxiety disorder) ([facility]) Generalized anxiety disorder Recurrent major depression in partial remission (HCC) ([facility]) Major depressive disorder, recurrent episode, in partial or unspecified remission Primary hypertension ([facility]/HCC) Unspecified essential hypertension Primary hypertension ([facility] Primary Unspecified essential hypertension Other hyperlipidemia ([facility]/HCC) Coronary artery disease involving [place] coronary artery of [place] heart without angina pectoris ([facility]/HCC) Frequent falls Functional gait abnormality CKD (chronic kidney disease) stage 4, GFR 15-29 ml/min ([facility]/HCC) Chronic kidney disease, Stage IV (severe) [facility] Traumatic complete tear of left rotator cuff, subsequent encounter- Primary Recurrent major depression in partial remission (HCC) ([facility]) Major depressive disorder, recurrent episode, in partial or unspecified remission Other hyperlipidemia ([facility]) EDITH (generalized anxiety disorder) ([facility]) Generalized anxiety disorder CKD (chronic kidney disease) stage 4, GFR 15-29 ml/min ([facility]) Chronic kidney disease, Stage IV (severe) Gastroesophageal reflux disease without esophagitis Esophageal reflux Coronary artery disease involving [place] coronary artery of [place] heart without angina pectoris ([facility]) Primary hypertension ([facility]) Unspecified essential hypertension Chronic obstructive pulmonary disease, unspecified COPD type ([facility]) Chronic obstructive pulmonary disease, unspecified COPD type ([facility] Primary Coronary artery disease involving [place] coronary artery of [place] heart without angina pectoris ([facility]) CKD (chronic kidney disease) stage 4, GFR 15-29 ml/min ([facility]) Chronic kidney disease, Stage IV (severe) Gastroesophageal reflux disease without esophagitis Esophageal reflux Recurrent major depressive disorder, in full remission ([facility]) Other hyperlipidemia ([facility]) EDITH (general[facility] anxiety disorder) ([facility]) Generalized anxiety disorder Recurrent major depression in partial remission (HCC) ([facility]) Major depressive disorder, recurrent episode, in partial or unspecified remission Primary hypertension ([facility] Unspecified essential hypertension Primary hypertension ([facility] Primary Unspecified essential hypertension Other hyperlipidemia ([facility]) Coronary artery disease involving [place] coronary artery of [place] heart without angina pectoris ([facility]) Frequent falls Functional gait abnormality CKD (chronic kidney disease) stage 4, GFR 15-29 ml/min ([facility]) Chronic kidney disease, Stage IV (severe) Recurrent major depression in partial remission (HCC) ([facility]) Major depressive disorder, recurrent episode, in partial or unspecified remission documented in this encounter [facility]* Diagnosis Gastroesophageal reflux disease without esophagitis Esophageal reflux Recurrent major depression in partial remission (HCC) ([facility]) Major depressive disorder, recurrent episode, in partial or unspecified remission documented in this encounter [facility]* Diagnosis Dyspnea and respiratory abnormalities- [...] type, unspecified whether angina present, unspecified whether [place] or transplanted heart Complaints of memory disturbance [facility] loss [facility] Traumatic complete tear of left rotator cuff, subsequent encounter- Primary Recurrent major depression in partial remission (HCC) ([facility]) Major depressive disorder, recurrent episode, in partial or unspecified remission Other hyperlipidemia ([facility]) EDITH (generalized anxiety disorder) ([facility]) Generalized anxiety disorder CKD (chronic kidney disease) stage 4, GFR 15-29 ml/min ([facility]) Chronic kidney disease, Stage IV (severe) Gastroesophageal reflux disease without esophagitis Esophageal reflux Coronary artery disease involving [place] coronary artery of [place] heart without angina pectoris ([facility]) Primary hypertension ([facility]) Unspecified essential hypertension Chronic obstructive pulmonary disease, unspecified COPD type ([facility]) Chronic obstructive pulmonary disease, unspecified COPD type ([facility] Primary Coronary artery disease involving [place] coronary artery of [place] heart without angina pectoris ([facility]) CKD (chronic kidney disease) stage 4, GFR 15-29 ml/min ([facility]) Chronic kidney disease, Stage IV (severe) Gastroesophageal reflux disease without esophagitis Esophageal reflux Recurrent major depressive disorder, in full remission ([facility]) Other hyperlipidemia ([facility]) EDITH (generalized anxiety disorder) ([facility] Generalized anxiety disorder Recurrent major depression in partial remission (HCC) ([facility]) Major depressive disorder, recurrent episode, in partial or unspecified remission Primary hypertension ([facility]) Unspecified essential hypertension Primary hypertension ([facility])- Primary Unspecified essential hypertension Other hyperlipidemia ([facility]) Coronary artery disease involving [place] coronary artery of [place] heart without angina pectoris ([facility]) Frequent falls Functional gait abnormality CKD (chronic kidney disease) stage 4, GFR 15-29 ml/min ([facility]) Chronic kidney disease, Stage IV (severe) Primary hypertension ([facility] Primary Unspecified essential hypertension Chronic obstructive pulmonary disease, unspecified COPD type ([facility]) Chronic kidney disease, stage 4 (severe) ([facility]) Coronary artery disease involving [place] coronary artery of [place] heart without angina pectoris ([facility]) Gastroesophageal reflux disease without esophagitis Esophageal reflux EDITH (generalized anxiety disorder) ([facility]) Generalized anxiety disorder Recurrent major depressive disorder, in full remission (CMS/HCC) Mixed hyperlipidemia ([facility]/HCC) Mixed hyperlipidemia MCI (mild cognitive impairment) Mild cognitive impairment, so stated Other hyperlipidemia ([facility]) Recurrent major depression in partial remission (HCC) ([facility]) Major depressive disorder, recurrent episode, in partial or unspecified remission documented in this encounter [facility]* Diagnosis Dyspnea and respiratory abnormalities- Primary Other dyspnea and respiratory abnormality Centrilobular emphysema (HCC) Other emphysema Class 1 obesity due to excess calories with serious comorbidity and body mass index (BMI) of 32.0 to 32.9 in adult Sleep-disordered breathing Other sleep disturbances Gait abnormality- Primary Abnormality of gait Memory loss Neck pain Cervicalgia [facility] Diagnosis Onset Date Resolution Status Admit Date Anemia acuteMarch 2024 3:58pmCAD (coronary artery disease) of artery bypass graft acuteMarch 2024 3:58pmChronic kidney disease, stage 3bacuteMar 2024 3:58pm[facility]pm[facility] 3:58pmHypertensive chronic kidney disease with stage 1 through stage 4 [facility]:58pm [facility] Work Phone: Evaluation note* Diagnosis Traumatic complete tear of left rotator cuff, subsequent encounter- Primary Recurrent major depression in partial remission (HCC) ([facility]) Major depressive disorder, recurrent episode, in partial or unspecified remission Other hyperlipidemia EDITH (generalized anxiety disorder) ([facility]) Generalized anxiety disorder CKD (chronic kidney disease) stage 4, GFR 15-29 ml/min ([facility]) Chronic kidney disease, Stage IV (severe) Gastroesophageal reflux disease without esophagitis Esophageal reflux Coronary artery disease involving [place] coronary artery of [place] heart without angina pectoris ([facility]) Primary hypertension ([facility]) Unspecified essential hypertension Chronic obstructive pulmonary disease, unspecified COPD type ([facility]) Chronic obstructive pulmonary disease, unspecified COPD type ([facility] Primary Coronary artery disease involving [place] coronary artery of [place] heart without angina pectoris ([facility]) CKD (chronic kidney disease) stage 4, GFR 15-29 ml/min ([facility]) Chronic kidney disease, Stage IV (severe) Gastroesophageal reflux disease without esophagitis Esophageal reflux Recurrent major depressive disorder, in full remission ([facility]) Other hyperlipidemia EDITH (generalized anxiety disorder) ([facility] Generalized anxiety disorder Recurrent major depression in partial remission (HCC) ([facility]) Major depressive disorder, recurrent episode, in partial or unspecified remission Primary hypertension ([facility]) Unspecified essential hypertension Primary hypertension ([facility] Primary Unspecified essential hypertension Other hyperlipidemia Coronary artery disease involving [place] coronary artery of [place] heart without angina pectoris ([facility]) Frequent falls Functional gait abnormality CKD (chronic kidney disease) stage 4, GFR 15-29 ml/min ([facility]) Chronic kidney disease, Stage IV (severe) Primary hypertension ([facility] Primary Unspecified essential hypertension Chronic obstructive pulmonary disease, unspecified COPD type ([facility]) Chronic kidney disease, stage 4 (severe) ([facility]) Coronary artery disease involving [place] coronary artery of [place] heart without angina pectoris ([facility]) Gastroesophageal reflux disease without esophagitis Esophageal reflux EDITH (generalized anxiety disorder) ([facility]) Generalized anxiety disorder Recurrent major depressive disorder, in full remission ([facility]) Mixed hyperlipidemia ([facility]) Mixed hyperlipidemia MCI (mild cognitive impairment) Mild cognitive impairment, so stated Other hyperlipidemia Recurrent major depression in partial remission (HCC) ([facility]) Major depressive disorder, recurrent episode, in partial or unspecified remission Other hyperlipidemia EDITH (generalized anxiety disorder) ([facility]) Generalized anxiety disorder Recurrent major depression in partial remission (HCC) ([facility]) Major depressive disorder, recurrent episode, in partial or unspecified remission documented in this encounter [facility]* Diagnosis Traumatic complete tear of left rotator cuff, subsequent encounter- Primary Recurrent major depression in partial remission (HCC) ([facility]) Major depressive disorder, recurrent episode, in partial or unspecified remission Other hyperlipidemia EDITH (generalized anxiety disorder) ([facility]) Generalized anxiety disorder CKD (chronic kidney disease) stage 4, GFR 15-29 ml/min ([facility]) Chronic kidney disease, Stage IV (severe) Gastroesophageal reflux disease without esophagitis Esophageal reflux Coronary artery disease involving [place] coronary artery of [place] heart without angina pectoris ([facility]) Primary hypertension ([facility]) Unspecified essential hypertension Chronic obstructive pulmonary disease, unspecified COPD type ([facility]) Chronic obstructive pulmonary disease, unspecified COPD type ([facility] Primary Coronary artery disease involving [place] coronary artery of [place] heart without angina pectoris ([facility]) CKD (chronic kidney disease) stage 4, GFR 15-29 ml/min ([facility]) Chronic kidney disease, Stage IV (severe) Gastroesophageal reflux disease without esophagitis Esophageal reflux Recurrent major depressive disorder, in full remission ([facility]) Other hyperlipidemia EDITH (generalized anxiety disorder) ([facility] Generalized anxiety disorder Recurrent major depression in partial remission (HCC) ([facility]) Major depressive disorder, recurrent episode, in partial or unspecified remission Primary hypertension ([facility]) Unspecified essential hypertension Primary hypertension ([facility] Primary Unspecified essential hypertension Other hyperlipidemia Coronary artery disease involving [place] coronary artery of [place] heart without angina pectoris ([facility]) Frequent falls Functional gait abnormality CKD (chronic kidney disease) stage 4, GFR 15-29 ml/min ([facility]) Chronic kidney disease, Stage IV (severe) Primary hypertension ([facility] Primary Unspecified essential hypertension Chronic obstructive pulmonary disease, unspecified COPD type ([facility]) Chronic kidney disease, stage 4 (severe) ([facility]) Coronary artery disease involving [place] coronary artery of [place] heart without angina pectoris ([facility] Gastroesophageal reflux disease without esophagitis Esophageal reflux EDITH (generalized anxiety disorder) ([facility]) Generalized anxiety disorder Recurrent major depressive disorder, in full remission ([facility]) Mixed hyperlipidemia ([facility]) Mixed hyperlipidemia MCI (mild cognitive impairment) Mild cognitive impairment, so stated Other hyperlipidemia Recurrent major depression in partial remission (HCC) ([facility]) Major depressive disorder, recurrent episode, in partial or unspecified remission Primary hypertension ([facility]) Unspecified essential hypertension Other hyperlipidemia Recurrent major depression in partial remission (HCC) ([facility]) Major depressive disorder, recurrent episode, in partial or unspecified remission Coronary artery disease involving [place] coronary artery of [place] heart without angina pectoris ([facility] Gastroesophageal reflux disease without esophagitis Esophageal reflux EDITH (generalized anxiety disorder) ([facility]) Generalized anxiety disorder documented in this encounter [facility]* Diagnosis Traumatic complete tear of left rotator cuff, subsequent encounter- Primary Recurrent major depression in partial remission (HCC) ([facility]) Major depressive disorder, recurrent episode, in partial or unspecified remission Other hyperlipidemia EDITH (generalized anxiety disorder) ([facility]) Generalized anxiety disorder CKD (chronic kidney disease) stage 4, GFR 15-29 ml/min ([facility]) Chronic kidney disease, Stage IV (severe) Gastroesophageal reflux disease without esophagitis Esophageal reflux Coronary artery disease involving [place] coronary artery of [place] heart without angina pectoris ([facility] Primary hypertension ([facility]) Unspecified essential hypertension Chronic obstructive pulmonary disease, unspecified COPD type ([facility]) Chronic obstructive pulmonary disease, unspecified COPD type ([facility] Primary Coronary artery disease involving [place] coronary artery of [place] heart without angina pectoris ([facility]) CKD (chronic kidney disease) stage 4, GFR 15-29 ml/min ([facility]) Chronic kidney disease, Stage IV (severe) Gastroesophageal reflux disease without esophagitis Esophageal reflux Recurrent major depressive disorder, in full remission ([facility]) Other hyperlipidemia EDITH (generalized anxiety disorder) ([facility] Generalized anxiety disorder Recurrent major depression in partial remission (HCC) ([facility]) Major depressive disorder, recurrent episode, in partial or unspecified remission Primary hypertension ([facility]) Unspecified essential hypertension Primary hypertension ([facility] Primary Unspecified essential hypertension Other hyperlipidemia Coronary artery disease involving [place] coronary artery of [place] heart without angina pectoris ([facility]) Frequent falls Functional gait abnormality CKD (chronic kidney disease) stage 4, GFR 15-29 ml/min ([facility]) Chronic kidney disease, Stage IV (severe) Primary hypertension ([facility] Primary Unspecified essential hypertension Chronic obstructive pulmonary disease, unspecified COPD type ([facility]) Chronic kidney disease, stage 4 (severe) ([facility]) Coronary artery disease involving [place] coronary artery of [place] heart without angina pectoris ([facility] Gastroesophageal reflux disease without esophagitis Esophageal reflux EDITH (generalized anxiety disorder) ([facility]) Generalized anxiety disorder Recurrent major depressive disorder, in full remission ([facility]) Mixed hyperlipidemia ([facility]) Mixed hyperlipidemia MCI (mild cognitive impairment) Mild cognitive impairment, so stated Other hyperlipidemia Recurrent major depression in partial remission (HCC) ([facility]) Major depressive disorder, recurrent episode, in partial or unspecified remission Neck pain- Primary Cervicalgia Primary hypertension ([facility]) Unspecified essential hypertension Chronic kidney disease, stage 4 (severe) ([facility]) EDITH (generalized anxiety disorder) ([facility] Generalized anxiety disorder Functional gait abnormality MCI (mild cognitive impairment) Mild cognitive impairment, so stated documented in this encounter [facility]* Diagnosis Traumatic complete tear of left rotator cuff, subsequent encounter- Primary Recurrent major depression in partial remission (HCC) ([facility]) Major depressive disorder, recurrent episode, in partial or unspecified remission Other hyperlipidemia EDITH (generalized anxiety disorder) ([facility]) Generalized anxiety disorder CKD (chronic kidney disease) stage 4, GFR 15-29 ml/min ([facility]) Chronic kidney disease, Stage IV (severe) Gastroesophageal reflux disease without esophagitis Esophageal reflux Coronary artery disease involving [place] coronary artery of [place] heart without angina pectoris ([facility]) Primary hypertension ([facility]) Unspecified essential hypertension Chronic obstructive pulmonary disease, unspecified COPD type ([facility]) Chronic obstructive pulmonary disease, unspecified COPD type ([facility] Primary Coronary artery disease involving [place] coronary artery of [place] heart without angina pectoris ([facility] CKD (chronic kidney disease) stage 4, GFR 15-29 ml/min ([facility]) Chronic kidney disease, Stage IV (severe) Gastroesophageal reflux disease without esophagitis Esophageal reflux Recurrent major depressive disorder, in full remission ([facility]) Other hyperlipidemia EDITH (generalized anxiety disorder) ([facility]) Generalized anxiety disorder Recurrent major depression in partial remission (HCC) ([facility]) Major depressive disorder, recurrent episode, in partial or unspecified remission Primary hypertension ([facility]) Unspecified essential hypertension Primary hypertension ([facility] [place])- Primary Unspecified essential hypertension Other hyperlipidemia Coronary artery disease involving [place] coronary artery of [place] heart without angina pectoris ([facility]) Frequent falls Functional gait abnormality CKD (chronic kidney disease) stage 4, GFR 15-29 ml/min ([facility]) Chronic kidney disease, Stage IV (severe) Primary hypertension ([facility] [place])- Primary Unspecified essential hypertension Chronic obstructive pulmonary disease, unspecified COPD type ([facility]) Chronic kidney disease, stage 4 (severe) ([facility] [place]) Coronary artery disease involving [place] coronary artery of [place] heart without angina pectoris ([facility]) Gastroesophageal reflux disease without esophagitis Esophageal reflux EDITH (generalized anxiety disorder) ([facility] [place]) Generalized anxiety disorder Recurrent major depressive disorder, in full remission ([facility]) Mixed hyperlipidemia ([facility]) Mixed hyperlipidemia MCI (mild cognitive impairment) Mild cognitive impairment, so stated Other hyperlipidemia Recurrent major depression in partial remission (HCC) ([facility] [place]) Major depressive disorder, recurrent episode, in partial or unspecified remission Neck pain- Primary Cervicalgia Primary hypertension ([facility]) Unspecified essential hypertension Chronic kidney disease, stage 4 (severe) ([facility]) EDITH (generalized anxiety disorder) ([facility]) Generalized anxiety disorder Functional gait abnormality MCI (mild cognitive impairment) Mild cognitive impairment, so stated EDITH (generalized anxiety disorder) ([facility] [place] Primary Generalized anxiety disorder documented in this encounter [facility]* Diagnosis Traumatic complete tear of left rotator cuff, subsequent encounter- Primary Recurrent major depression in partial remission (HCC) ([facility]) Major depressive disorder, recurrent episode, in partial or unspecified remission Other hyperlipidemia EDITH (generalized anxiety disorder) ([facility] Generalized anxiety disorder CKD (chronic kidney disease) stage 4, GFR 15-29 ml/min ([facility] Chronic kidney disease, Stage IV (severe) Gastroesophageal reflux disease without esophagitis Esophageal reflux Coronary artery disease involving [place] coronary artery of [place] heart without angina pectoris ([facility] [place] Primary hypertension ([facility]) Unspecified essential hypertension Chronic obstructive pulmonary disease, unspecified COPD type ([facility] [place]) Chronic obstructive pulmonary disease, unspecified COPD type ([facility] [place] Primary Coronary artery disease involving [place] coronary artery of [place] heart without angina pectoris ([facility] [place]) CKD (chronic kidney disease) stage 4, GFR 15-29 ml/min ([facility]) Chronic kidney disease, Stage IV (severe) Gastroesophageal reflux disease without esophagitis Esophageal reflux Recurrent major depressive disorder, in full remission ([facility] [place]) Other hyperlipidemia EDITH (generalized anxiety disorder) ([facility] [place] Generalized anxiety disorder Recurrent major depression in partial remission (HCC) ([facility]) Major depressive disorder, recurrent episode, in partial or unspecified remission Primary hypertension ([facility] [place]) Unspecified essential hypertension Primary hypertension ([facility] [place] Primary Unspecified essential hypertension Other hyperlipidemia Coronary artery disease involving [place] coronary artery of [place] heart without angina pectoris ([facility] [place]) Frequent falls Functional gait abnormality CKD (chronic kidney disease) stage 4, GFR 15-29 ml/min ([facility]) Chronic kidney disease, Stage IV (severe) Primary hypertension ([facility] [place] Primary Unspecified essential hypertension Chronic obstructive pulmonary disease, unspecified COPD type ([facility] [place]) Chronic kidney disease, stage 4 (severe) ([facility]) Coronary artery disease involving [place] coronary artery of [place] heart without angina pectoris ([facility] [place]) Gastroesophageal reflux disease without esophagitis Esophageal reflux EDITH (generalized anxiety disorder) ([facility] [place]) Generalized anxiety disorder Recurrent major depressive disorder, in full remission ([facility] [place]) Mixed hyperlipidemia ([facility] [place]) Mixed hyperlipidemia MCI (mild cognitive impairment) Mild cognitive impairment, so stated Other hyperlipidemia Recurrent major depression in partial remission (HCC) ([facility]) Major depressive disorder, recurrent episode, in partial or unspecified remission Neck pain- Primary Cervicalgia Primary hypertension ([facility] [place]) Unspecified essential hypertension Chronic kidney disease, stage 4 (severe) ([facility]) EDITH (generalized anxiety disorder) ([facility]) Generalized anxiety disorder Functional gait abnormality MCI (mild cognitive impairment) Mild cognitive impairment, so stated Other hyperlipidemia Coronary artery disease involving [place] coronary artery of [place] heart without angina pectoris ([facility] Primary hypertension ([facility]) Unspecified essential hypertension Recurrent major depression in partial remission (HCC) ([facility]) Major depressive disorder, recurrent episode, in partial or unspecified remission EDITH (generalized anxiety disorder) ([facility] [place]) Generalized anxiety disorder documented in this encounter [facility]* Diagnosis Traumatic complete tear of left rotator cuff, subsequent encounter- Primary Recurrent major depression in partial remission (HCC) ([facility]) Major depressive disorder, recurrent episode, in partial or unspecified remission Other hyperlipidemia EDITH (generalized anxiety disorder) ([facility]) Generalized anxiety disorder CKD (chronic kidney disease) stage 4, GFR 15-29 ml/min ([facility]) Chronic kidney disease, Stage IV (severe) Gastroesophageal reflux disease without esophagitis Esophageal reflux Coronary artery disease involving [place] coronary artery of [place] heart without angina pectoris ([facility] Primary hypertension ([facility]) Unspecified essential hypertension Chronic obstructive pulmonary disease, unspecified COPD type ([facility]) Chronic obstructive pulmonary disease, unspecified COPD type ([facility] Primary Coronary artery disease involving [place] coronary artery of [place] heart without angina pectoris ([facility] [place]) CKD (chronic kidney disease) stage 4, GFR 15-29 ml/min ([facility] [place]) Chronic kidney disease, Stage IV (severe) Gastroesophageal reflux disease without esophagitis Esophageal reflux Recurrent major depressive disorder, in full remission ([facility] [place]) Other hyperlipidemia EDITH (generalized anxiety disorder) ([facility] [place]) Generalized anxiety disorder Recurrent major depression in partial remission (HCC) ([facility]) Major depressive disorder, recurrent episode, in partial or unspecified remission Primary hypertension ([facility]) Unspecified essential hypertension Primary hypertension ([facility] [place] Primary Unspecified essential hypertension Other hyperlipidemia Coronary artery disease involving [place] coronary artery of [place] heart without angina pectoris ([facility] [place]) Frequent falls Functional gait abnormality CKD (chronic kidney disease) stage 4, GFR 15-29 ml/min ([facility] [place]) Chronic kidney disease, Stage IV (severe) Primary hypertension ([facility] Primary Unspecified essential hypertension Chronic obstructive pulmonary disease, unspecified COPD type ([facility]) Chronic kidney disease, stage 4 (severe) ([facility]) Coronary artery disease involving [place] coronary artery of [place] heart without angina pectoris ([facility] [place]) Gastroesophageal reflux disease without esophagitis Esophageal reflux EDITH (generalized anxiety disorder) ([facility] [place]) Generalized anxiety disorder Recurrent major depressive disorder, in full remission ([facility]) Mixed hyperlipidemia ([facility]) Mixed hyperlipidemia MCI (mild cognitive impairment) Mild cognitive impairment, so stated Other hyperlipidemia Recurrent major depression in partial remission (HCC) ([facility]) Major depressive disorder, recurrent episode, in partial or unspecified remission Neck pain- Primary Cervicalgia Primary hypertension ([facility]) Unspecified essential hypertension Chronic kidney disease, stage 4 (severe) ([facility]) EDITH (generalized anxiety disorder) ([facility]) Generalized anxiety disorder Functional gait abnormality MCI (mild cognitive impairment) Mild cognitive impairment, so stated Primary hypertension ([facility] [place]) Unspecified essential hypertension Other hyperlipidemia Neck pain Cervicalgia Recurrent major depression in partial remission (HCC) ([facility]) Major depressive disorder, recurrent episode, in partial or unspecified remission Coronary artery disease involving [place] coronary artery of [place] heart without angina pectoris ([facility]) Gastroesophageal reflux disease without esophagitis Esophageal reflux Chronic obstructive pulmonary disease, unspecified COPD type ([facility] EDITH (generalized anxiety disorder) ([facility] [place]) Generalized anxiety disorder documented in this encounter [facility]* Diagnosis Traumatic complete tear of left rotator cuff, subsequent encounter- Primary Recurrent major depression in partial remission (HCC) ([facility]) Major depressive disorder, recurrent episode, in partial or unspecified remission Other hyperlipidemia EDITH (generalized anxiety disorder) ([facility] [place] Generalized anxiety disorder CKD (chronic kidney disease) stage 4, GFR 15-29 ml/min ([facility] [place] Chronic kidney disease, Stage IV (severe) Gastroesophageal reflux disease without esophagitis Esophageal reflux Coronary artery disease involving [place] coronary artery of [place] heart without angina pectoris ([facility] [place] Primary hypertension ([facility]) Unspecified essential hypertension Chronic obstructive pulmonary disease, unspecified COPD type ([facility] [place]) Chronic obstructive pulmonary disease, unspecified COPD type ([facility] [place] Primary Coronary artery disease involving [place] coronary artery of [place] heart without angina pectoris ([facility] [place] CKD (chronic kidney disease) stage 4, GFR 15-29 ml/min ([facility] [place] Chronic kidney disease, Stage IV (severe) Gastroesophageal reflux disease without esophagitis Esophageal reflux Recurrent major depressive disorder, in full remission ([facility] [place] Other hyperlipidemia EDITH (generalized anxiety disorder) ([facility] [place] Generalized anxiety disorder Recurrent major depression in partial remission (HCC) ([facility] [place]) Major depressive disorder, recurrent episode, in partial or unspecified remission Primary hypertension ([facility]) Unspecified essential hypertension Primary hypertension ([facility] [place] Primary Unspecified essential hypertension Other hyperlipidemia Coronary artery disease involving [place] coronary artery of [place] heart without angina pectoris ([facility] [place]) Frequent falls Functional gait abnormality CKD (chronic kidney disease) stage 4, GFR 15-29 ml/min ([facility] [place] Chronic kidney disease, Stage IV (severe) Primary hypertension ([facility] Primary Unspecified essential hypertension Chronic obstructive pulmonary disease, unspecified COPD type ([facility]) Chronic kidney disease, stage 4 (severe) ([facility]) Coronary artery disease involving [place] coronary artery of [place] heart without angina pectoris ([facility] [place]) Gastroesophageal reflux disease without esophagitis Esophageal reflux EDITH (generalized anxiety disorder) ([facility]) Generalized anxiety disorder Recurrent major depressive disorder, in full remission ([facility]) Mixed hyperlipidemia ([facility] Mixed hyperlipidemia MCI (mild cognitive impairment) Mild cognitive impairment, so stated Other hyperlipidemia Recurrent major depression in partial remission (HCC) ([facility]) Major depressive disorder, recurrent episode, in partial or unspecified remission Neck pain- Primary Cervicalgia Primary hypertension ([facility]) Unspecified essential hypertension Chronic kidney disease, stage 4 (severe) ([facility]) EDITH (generalized anxiety disorder) ([facility] Generalized anxiety disorder Functional gait abnormality MCI (mild cognitive impairment) Mild cognitive impairment, so stated Neck pain- Primary Cervicalgia documented in this encounter [facility]* Diagnosis Traumatic complete tear of left rotator cuff, subsequent encounter- Primary Recurrent major depression in partial remission (HCC) ([facility] Major depressive disorder, recurrent episode, in partial or unspecified remission Other hyperlipidemia EDITH (generalized anxiety disorder) ([facility] Generalized anxiety disorder CKD (chronic kidney disease) stage 4, GFR 15-29 ml/min ([facility] Chronic kidney disease, Stage IV (severe) Gastroesophageal reflux disease without esophagitis Esophageal reflux Coronary artery disease involving [place] coronary artery of [place] heart without angina pectoris ([facility] Primary hypertension ([facility]) Unspecified essential hypertension Chronic obstructive pulmonary disease, unspecified COPD type ([facility]) Chronic obstructive pulmonary disease, unspecified COPD type ([facility] Primary Coronary artery disease involving [place] coronary artery of [place] heart without angina pectoris ([facility] CKD (chronic kidney disease) stage 4, GFR 15-29 ml/min ([facility] Chronic kidney disease, Stage IV (severe) Gastroesophageal reflux disease without esophagitis Esophageal reflux Recurrent major depressive disorder, in full remission ([facility]) Other hyperlipidemia EDITH (generalized anxiety disorder) ([facility]) Generalized anxiety disorder Recurrent major depression in partial remission (HCC) ([facility]) Major depressive disorder, recurrent episode, in partial or unspecified remission Primary hypertension ([facility]) Unspecified essential hypertension Primary hypertension ([facility])- Primary Unspecified essential hypertension Other hyperlipidemia Coronary artery disease involving [place] coronary artery of [place] heart without angina pectoris ([facility]) Frequent falls Functional gait abnormality CKD (chronic kidney disease) stage 4, GFR 15-29 ml/min ([facility] Chronic kidney disease, Stage IV (severe) Primary hypertension ([facility] [place])- Primary Unspecified essential hypertension Chronic obstructive pulmonary disease, unspecified COPD type ([facility] Chronic kidney disease, stage 4 (severe) ([facility] [place]) Coronary artery disease involving [place] coronary artery of [place] heart without angina pectoris ([facility] Gastroesophageal reflux disease without esophagitis Esophageal reflux EDITH (generalized anxiety disorder) ([facility]) Generalized anxiety disorder Recurrent major depressive disorder, in full remission ([facility] Mixed hyperlipidemia ([facility] Mixed hyperlipidemia MCI (mild cognitive impairment) Mild cognitive impairment, so stated Other hyperlipidemia Recurrent major depression in partial remission (HCC) ([facility] [place]) Major depressive disorder, recurrent episode, in partial or unspecified remission Neck pain- Primary Cervicalgia Primary hypertension [place] [facility] Unspecified essential hypertension Chronic kidney disease, stage 4 (severe) ([facility]) EDITH (generalized anxiety disorder) ([facility]) Generalized anxiety disorder Functional gait abnormality MCI (mild cognitive impairment) Mild cognitive impairment, so stated Cervical spondylosis- Primary Cervical spondylosis without myelopathy Neck pain Cervicalgia Primary hypertension ([facility] Unspecified essential hypertension Chronic kidney disease, stage 4 (severe) ([facility] EDITH (generalized anxiety disorder) ([facility] Generalized anxiety disorder H/O: lung cancer Personal history of malignant neoplasm of bronchus and lung MCI (mild cognitive impairment) Mild cognitive impairment, so stated [facility] Diagnosis Cervical spondylosis- Primary Cervical spondylosis without myelopathy Cervical spondylosis- Primary Cervical spondylosis without myelopathy Cervical spondylosis Cervical spondylosis without myelopathy [facility] Diagnosis Traumatic complete tear of left rotator cuff, subsequent encounter- Primary Recurrent major depression in partial remission Major depressive disorder, recurrent episode, in partial or unspecified remission Other hyperlipidemia EDITH (generalized anxiety disorder) Generalized anxiety disorder CKD (chronic kidney disease) stage 4, GFR 15-29 ml/min ([facility] Chronic kidney disease, Stage IV (severe) Gastroesophageal reflux disease without esophagitis Esophageal reflux Coronary artery disease involving [place] coronary artery of [place] heart without angina pectoris Primary hypertension Unspecified essential hypertension Chronic obstructive pulmonary disease, unspecified COPD type ([facility] Chronic obstructive pulmonary disease, unspecified COPD type (HCC)- Primary Coronary artery disease involving [place] coronary artery of [place] heart without angina pectoris CKD (chronic kidney disease) stage 4, GFR 15-29 ml/min ([facility] Chronic kidney disease, Stage IV (severe) Gastroesophageal reflux disease without esophagitis Esophageal reflux Recurrent major depressive disorder, in full remission Other hyperlipidemia EDITH (generalized anxiety disorder) Generalized anxiety disorder Recurrent major depression in partial remission Major depressive disorder, recurrent episode, in partial or unspecified remission Primary hypertension Unspecified essential hypertension Primary hypertension- Primary Unspecified essential hypertension Other hyperlipidemia Coronary artery disease involving [place] coronary artery of [place] heart without angina pectoris Frequent falls Functional gait abnormality CKD (chronic kidney disease) stage 4, GFR 15-29 ml/min ([facility] Chronic kidney disease, Stage IV (severe) Primary hypertension- Primary Unspecified essential hypertension Chronic obstructive pulmonary disease, unspecified COPD type (HCC) Chronic kidney disease, stage 4 (severe) ([facility]) Coronary artery disease involving s[place] coronary artery of [place] heart without angina pectoris Gastroesophageal reflux disease [...] Unspecified essential hypertension Coronary artery disease involving [place] coronary artery of [place] heart without angina pectoris Chronic kidney disease, stage 4 (severe) (HCC) Pulmonary hypertension (HCC) Other chronic pulmonary heart diseases EDITH (generalized anxiety disorder) Generalized anxiety disorder Other hyperlipidemia Neck pain Cervicalgia Recurrent major depression in partial remission Major depressive disorder, recurrent episode, in partial or unspecified remission Gastroesophageal reflux disease without esophagitis Esophageal reflux Chronic obstructive pulmonary disease, unspecified COPD type ([facility]) [facility] Cervical spondylosis- Primary Cervical spondylosis without myelopathy documented [facility]* Diagnosis Dyspnea and respiratory abnormalities- Primary Other dyspnea and respiratory abnormality Centrilobular emphysema (HCC) Other emphysema Class 1 obesity due to excess calories with serious comorbidity and body mass index (BMI) of 32.0 to 32.9 in adult Sleep-disordered breathing Other sleep disturbances Coronary artery disease involving [place] coronary artery of [place] heart without angina pectoris- Primary Hx of [...] [facility] Dyspnea and respiratory abnormalities- Primary Other dyspnea and respiratory abnormality Centrilobular emphysema (HCC) Other emphysema Class 1 obesity due to excess calories with serious comorbidity and body mass index (BMI) of 32.0 to 32.9 in adult Sleep-disordered breathing Other sleep disturbances Chronic heart failure with preserved ejection fraction (HCC)- Primary documented in this encounter [facility] general Narrative - Reported* Type Description Date Medical History hypertension Medical HistoryhypercholesterolemiaMedical Historylung cancerMedical History heart diseaseMedical HistoryA flutterMedical HistoryEsophageal refluxMedical HistoryDEPRESSION AND ANXIETYSurgical HistoryCABGSurgical HistoryherniaSurgical Historylobectomy: lungSurgical HistoryFR/Dr Joshi--hernia repair10/2020 Hospitalization Historysee above [place] Other History general Narrative - ReportedNort [employer] Other His[facility] medic general Narrative - ReportedNost. [facility] [employer] Other InstructionsNot on filedocumented in this encounter [facility] SystemReason for referral (narrative)* Reason * Waiting for appt pulmonology, lung nodule, progressive SOB, hx. lung cancer Diagnosis 1 Pulmonary nodule (R9 1.1) Referral Organization [facility] yeimy Sparks Referring Provider First Name Cristo Referring Provider Last Name Gabriele Referring Provider Specialty Family Medi cine Referred Organization [facility] Referred Provider Gonsalo Hawley Referred Address [address] [place] [phone] Referred Provider Specialty Pulmonary Marium briseno Referral Priority Routine General Notes Mattie Carballo 01:40:04 PM >referral received and sent p2p successful per log [place] Other Reason for referral (narrative)* Outpatient Procedure (Routine) - Pending ReviewSpecialtyDiagnoses / ProceduresReferred By Contact Referred To ContactRESPIRATORY INSTITUTE Diagnoses Shortness of breath Procedures SPIROMETRY WITH DILATOR IF OBSTRUCTED BRNCDILAT RSPSE SPMTRY PRE&POST-BRNCDILAT ADMMarisol Abdul MD [address] [place] [address] [facility] [place] [address] [address] Referral IDStatusReasonStart DateExpiration DateVisits RequestedVisits [id number] Review Auto-Generated Referral / [facility] for visit NarrativeRef by Dr. Suazo for pulmonology, lung nodule, progressive SOB, hx. lung cancerManitou Beach [employer] Other Summary Purpose Family History No Family History Records Found Relationship Condition Age at Onset Recorded Date/T yanique Not Specified Hypertension Unknown Diabetes mellitusUnknownfatherMedical history unknownUnknown Relationship Condition Age at Onset Recorded Date/T yanique mother Hypertension Unknown Diabetes mellitusUnknownfatherMedical history unknownUnknownbrotherHeart disease UnknowndaughterFamily history of mental disorderUnknownfatherDeceasedUnknown family memberDeceasedUnknownFamily history of mental disorderUnknownDeceased UnknownsisterDiabetes mellitusUnknown Advance Directives No Advanced Directives Records Found Advance Directive Response Recorded Date/ Time Advance Directives No July 6:23pm Hospital Course Note MR#: [id number] [facility] Pt. Name: Kel Castillo Admitted: 10/05/2019 [...] (more content not included)... 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) Depression, unspecified depression type Procedures MRI BRAIN WO IVCON MRI BRAIN BRAIN STEM W/[place] [address] [place] [address] Mr Imaging Referral IDStatusReasonStart DateExpiration DateVisits RequestedVisits [id number] Auto-Generated Referral /[id number] / ProceduresReferred By ContactReferred To ContactMR IMAGING Diagnoses Cognitive impairment, mild, so stated Procedures MRI 3D POST PROCESSING 3D RENDERING W/INTERP&POSTPROC DIFF WORK STATION Alonzo Cabrera MD, [address] [place] [address] Mr Imaging Referral IDStatusReasonStart DateExpiration DateVisits RequestedVisits [id number] Review Auto-Generated Referral 1Referral IDStatusReasonStart DateExpiration DateVisits RequestedVisits [id number] Auto-Generated Referral /[id number] / ProceduresReferred By ContactReferred To ContactPsychology Diagnoses Recurrent major depression in partial remission (HCC) Procedures CONSULT TO PSYCHOLOGY OFFICE/OUTPATIENT [facility] MDM 60-74 MINUTES Eun Kaufman DO [address] [place] [address] Referral IDStatusReasonStart DateExpiration DateVisits RequestedVisits [id number] Review PCP Requested Referral [id number] / ProceduresReferred By ContactReferred To ContactREHAB AND SPORTS THERAPY INS Diagnoses Abnormality of gait Procedures CONSULT TO PHYSICAL THERAPY PHYSICAL THERAPY EVALUATION HIGH COMPLEX 45 MINS Eun Trent DO [address] [place] [address] [facility] [place] [address] Referral IDStatusReasonFairview DateExpiration DateVisits RequestedVisits [id number] Review Auto-Generated Referral [id number] / ProceduresReferred By ContactReferred To ContactCT IMAGING Diagnoses Memory loss Procedures CT BRAIN WO IVCON CT HEAD/BRAIN W/O CONTRAST MATERIAL Mandeep LatashaEun, [place] [address] Ct [facility] [place] [address] Referral IDStatusReasonStart DateExpiration DateVisits RequestedVisits [id number] Auto-Generated Referral [id number] / ProceduresReferred By ContactReferred To Contact Diagnoses Memory loss Procedures NEUROPSYCHOLOGICAL TESTING CONSULT NEUROBEHAVIORAL STATUS XM PHYS/QHP 1ST HOUR NEUROPSYCHOLOGICAL TST EVAL PHYS/QHP 1ST HOUR NEUROPSYCHOLOGICAL TST EVAL PHYS/QHP EA ADDL HR PSYCL/NRPSYCL TST TECH 2+ TST 1ST 30 MIN PSYCL/NRPSYCL TST TECH 2+ TST EA ADDL 30 MIN Mandeep Latasha Eun, [address] [id number] Referral IDStatusReasonStart DateExpiration DateVisits RequestedVisits [id number] Not Required PCP Requested Referral Referral IDStatusReasonStart DateExpiration DateVisits RequestedVisits [id number] Auto-Generated Referral Chief Complaint and Reason for Visit Chief Complaint g47.30 Chief Complaint RENAL 6 MONTH F/U Reason for Visit Anemia CAD (coronary artery disease) of artery bypass graft Chronic kidney disease, stage 3b Hyperkalemia Hyperlipemia [id number] Chief Complaint Admit Date RENAL 6 MONTH [...] section and content) DATE CREATED AUTHOR 04/05/2018 [facility] DATE CREATED AUTHOR AUTHOR'S ORGANIZ ATION 01/06/2020 [facility] DATE CREATED AUTHOR AUTHOR'S ORGANIZ ATION 12/19/2022 [facility] DATE CREATED AUTHOR AUTHOR'S ORGANIZ ATION 04/22/2023 [facility] DATE CREATED AUTHOR AUTHOR'S ORGANIZ ATION 03/04/2024 [facility] DATE CREATED AUTHOR AUTHOR'S ORGANIZ ATION 05/13/2024 [facility] DATE CREATED AUTHOR AUTHOR'S ORGANIZ ATION 03/03/2025 [facility] DATE CREATED AUTHOR AUTHOR'S ORGANIZ ATION 04/07/2025 [facility] DATE CREATED AUTHOR AUTHOR'S ORGANIZ ATION 04/07/2025 [facility] DATE CREATED AUTHOR AUTHOR'S ORGANIZ ATION 04/30/2025 [facility] DATE CREATED AUTHOR AUTHOR'S ORGANIZ ATION 06/21/2025 [facility] Source Comments (unrecognize d section and content) In the event this informatio n is protected by the Federal Confidentiality of Alcohol and Drug Abuse Patient Records regulations: The Federal rules restrict any use of the information to criminally investigate or prosecute any alcohol or drug abuse patient.[facility] CenterIn the event this information is protected by the Federal Confidentiality of Alcohol and Drug Abuse Patient Records regulations: The Federal rules restrict any use of the information to criminally investigate or prosecute any alcohol or drug abuse patient.[facility] CenterIn the event this information is protected by the Federal Confidentiality of Alcohol and Drug Abuse Patient Records regulations: The Federal rules restrict any use of the information to criminally investigate or prosecute any alcohol or drug abuse patient.[facility] CenterIn the event this information is protected by the Federal Confidentiality of Alcohol and Drug Abuse Patient Records regulations: The Federal rules restrict any use of the information to criminally investigate or prosecute any alcohol or drug abuse patient.[facility] CenterIn the event this information is protected by the Federal Confidentiality of Alcohol and Drug Abuse Patient Records regulations: The Federal rules restrict any use of the information to criminally investigate or prosecute any alcohol or drug abuse patient.[facility] CenterIn the event this information is protected by the Federal Confidentiality of Alcohol and Drug Abuse Patient Records regulations: The Federal rules restrict any use of the information to criminally investigate or prosecute any alcohol or drug abuse patient.[facility] CenterIn the event this information is protected by the Federal Confidentiality of Alcohol and Drug Abuse Patient Records regulations: The Federal rules restrict any use of the information to criminally investigate or prosecute any alcohol or drug abuse patient.[facility] CenterIn the event this information is protected by the Federal Confidentiality of Alcohol and Drug Abuse Patient Records regulations: The Federal rules restrict any use of the information to criminally investigate or prosecute any alcohol or drug abuse patient.[facility] CenterIn the event this information is protected by the Federal Confidentiality of Alcohol and Drug Abuse Patient Records regulations: The Federal rules restrict any use of the information to criminally investigate or prosecute any alcohol or drug abuse patient.[facility] CenterIn the event this information is protected by the Federal Confidentiality of Alcohol and Drug Abuse Patient Records regulations: The Federal rules restrict any use of the information to criminally investigate or prosecute any alcohol or drug abuse patient.[facility] CenterIn the event this information is protected by the Federal Confidentiality of Alcohol and Drug Abuse Patient Records regulations: The Federal rules restrict any use of the information to criminally investigate or prosecute any alcohol or drug abuse patient.[facility] CenterIn the event this information is protected by the Federal Confidentiality of Alcohol and Drug Abuse Patient Records regulations: The Federal rules restrict any use of the information to criminally investigate or prosecute any alcohol or drug abuse patient.[facility] CenterIn the event this information is protected by the Federal Confidentiality of Alcohol and Drug Abuse Patient Records regulations: The Federal rules restrict any use of the information to criminally investigate or prosecute any alcohol or drug abuse patient.[facility] CenterIn the event this information is protected by the Federal Confidentiality of Alcohol and Drug Abuse Patient Records regulations: The Federal rules restrict any use of the information to criminally investigate or prosecute any alcohol or drug abuse patient.[facility] CenterIn the event this information is protected by the Federal Confidentiality of Alcohol and Drug Abuse Patient Records regulations: The Federal rules restrict any use of the information to criminally investigate or prosecute any alcohol or drug abuse patient.[facility] CenterIn the event this information is protected by the Federal Confidentiality of Alcohol and Drug Abuse Patient Records regulations: The Federal rules restrict any use of the information to criminally investigate or prosecute any alcohol or drug abuse patient.[facility] Reason for Visit (unrecogniz ed section and content) ReasonCommentsNew PatientMemory lossSpecialtyDiagnoses / ProceduresReferred By ContactReferred To ContactMR IMAGING Diagnoses Cognitive impairment, mild, so stated 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) Depression, unspecified depression type Procedures MRI BRAIN WO IVCON MRI BRAIN BRAIN STEM W/[place] [address] [place] [address] Mr Imaging Referral IDStatusReasonStart DateExpiration DateVisits RequestedVisits [id number] Auto-Generated Referral /[id number]UorsafztpQqdaeerhw / Procedures Referred By ContactReferred To ContactCARRIE TINGLEY HOSPITALIRATORY INSTITUTE Diagnoses Shortness of breath Procedures SPIROMETRY WITH DILATOR IF OBSTRUCTED BRNCDILAT RSPSE SPMTRY PRE&POST-BRNCDILAT Marisol Olivares MD [address] [place] [place] [id number] [address] [place] [address] [place] [address] Referral IDStatusReasonStart DateExpiration DateVisits RequestedVisits [id number] Auto-Generated Referral /[id number] Patient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)ReasonCommentsCare Coordinator - OtherIn response to order placed in EPICReasonCommentsEstablished PatientReasonComments Follow-upMEDS/SHOULDERReasonCommentsEstablished PatientFollow UpSpecialty Diagnoses / ProceduresReferred By ContactReferred To ContactNeurology / NEUROLOGY Diagnoses Follow-up exam Follow up Procedures OFFICE/OUTPATIENT ESTABLISHED HIGH MDM 40 MIN EST NI PATIENT Self Eun Trent, DO [address] [place] [address] Referral IDStatusReasonStart DateExpiration DateVisits RequestedVisits [id number] Financial Clearance Not Required Patient Cleared - INN Insurance Found [id number] / ProceduresReferred By Contact Referred To ContactCT IMAGING Diagnoses Memory loss Procedures CT BRAIN WO IVCON CT HEAD/BRAIN W/O CONTRAST MATERIAL Eun Trent, DO [address] [place] [address] [address] [facility] [place] [address] Referral IDStatusReasonSthiland DateExpiration DateVisits RequestedVisits [id number] Auto-Generated Referral [id number] RefillSpecialtyDiagnoses / Procedures Referred By ContactReferred To Contact Diagnoses Memory loss Procedures NEUROPSYCHOLOGICAL TESTING CONSULT NEUROBEHAVIORAL STATUS XM PHYS/QHP 1ST HOUR NEUROPSYCHOLOGICAL TST EVAL PHYS/QHP 1ST HOUR NEUROPSYCHOLOGICAL TST EVAL PHYS/QHP EA ADDL HR PSYCL/NRPSYCL TST TECH 2+ TST 1ST 30 MIN PSYCL/NRPSYCL TST TECH 2+ TST EA ADDL 30 MIN Eun Trent, DO [address] [place] [address] Referral IDStatusReasonStart DateExpiration DateVisits RequestedVisits [id number] PCP Requested Referral [id number]jbDdvpclSinyqgnjMzuytv-hcZorfmo CommentsNeck PainReasonCommentsHypertensionReasonCommentsNew PatientCADReason Onset ZgnsAlgnvvbhRhgcuyn41/22/2025ReasonCommentsCare Coordinator - Other Care Teams (unrecognized sec tion and content) Team MemberRelationshipSpecialtyStart DateEnd Date [facility]Mirtha smithThomas [address] [place] [address] NI Referring TeamPsychiatry12/21/21Team MemberRelationshipSpecialtyStart DateEnd Date [facility] [address] [place] [address] NI Referring TeamPsychiatry12/21/21Team MemberRelationshipSpecialtyStart DateEnd Date [facility]Thomas [address] [place] [address] NI Referring TeamPsychiatry12/21/21Team MemberRelationshipSpecialtyStart DateEnd Date [facility]Mirth[facility] smithThomas [address] [place] [address] NI Referring TeamPsychiatry12/21/21Team MemberRelationshipSpecialtyStart DateEnd Date [facility]and[facility]irthaThomas [address] [place] [address] NI Referring TeamPsychiatry12/21/21Team MemberRelationshipSpecialtyStart DateEnd Date [facility]andMirthaThomas [address] [place] [address] NI Referring TeamPsychiatry12/21/21Team MemberRelationshipSpecialtyStart DateEnd Date [facility]andMirthaThomas [address] [place] [address] NI Referring TeamPsychiatry12/21/21 Team Status: Inactive Member Role Status Dates Corona Monroe MD Attending Provider Active Casper Cooper Care ProviderActive Team Status: Active Member Role Status Dates Daria Cardoza DO Primary Care Provider Active Team MemberRelationshipSpecialtyStart DateEnd Date Franky Hurtadoam [address] [place] [address] [place] Referring TeamPsychiatry12/21/21Team MemberRelationshipSpecialtyStart DateEnd Date Shaikh Grimes MD PCP - GeneralInternal Medicine08/12/22 Team Status: Active Member Role Status Dates NON STAFF Primary Care Provider Active Team Status: Inactive Member Role Status Dates NON STAFF Primary Care Provider Active Start: March 31, 2024 End: March 31ashish Toscano MDAttending ProviderActiveStart: March 31, 2024 End: March 31, 2024Team MemberRelationshipSpecialtyStart DateEnd Date Thomas Hurtado MD [address] [place] [address] NI Referring TeamPsychiatry12/21/21Team MemberRelationshipSpecialtyStart DateEnd Date Thomas Hurtado MD [address] [place] [address] NI Referring TeamPsychiatry12/21/21Team MemberRelationshipSpecialtyStart DateEnd Date Shaikh Grimes MD [facility] [address] [facility] [place] [address] PCP - Aet10/11/23 Jose Beckford MD [address] [place] [address] PCP - [facility]06/09/24 Jayy Coronado, PARI [address] [place] [address] Nurse PractitionerSouth [facility]06/09/24Team MemberRelationshipSpecialtyStart DateEnd Date Shaikh Grimes MD [address] [place] [address] PCP - [facility]10/11/23 Jose Beckford MD [address] [place] [address] PCP - [facility]06/09/24 Jayy Coronado, PARI [address] [place] [address] Nurse PractitionerSouth [facility]06/09/24Team MemberRelationshipSpecialtyStart DateEnd Date Shaikh Grimes MD [address] [place] [address] [facility]10/11/23 Jose Beckford MD [address] [place] [address] PCP - [facility]06/09/24 Jayy Coronado NP [address] [place] [address] Nurse PractitionerFanmly Ryjkabot43/29/24 Vannessa Russell MA Family Ulwlqitc26/01/2411Team MemberRelationshipSpecialtyStart DateEnd Date Shaikh Grimes MD [address] [place] [address] PCP - [employer]10/11/23 Jose Beckford MD [address] [place] [address] PCP - Generalmily Swkippfj21/29/24 Jayy Coronado NP [address] [place] [address] Nurse PractitionerSouth [facility]06/09/24Team MemberRelationshipSpecialtyStart DateEnd Date Shaikh Grimes MD [address] [place] [address] PCP - [employer]10/11/23 Jose Beckford MD [address] [place] [address] PCP - GeneralFamily Ctcfsojs37/29/24 Jayy Coronado NP [address] [place] [address] Nurse PractitionerFamily Phsqrmur08/29/24Team MemberRelationshipSpecialtyStart DateEnd Date Shaikh Grimes MD [address] [place] [address] PCP - GeneralInternal Medicine08/12/22 Shaikh Grimes MD [address] [place] [address] PCP - [employer]etna10/11/23Team MemberRelationshipSpecialtyStart DateEnd Date Thomas Hurtado MD [address] [place] [address] [facility] TeamPsychiatry12/21/21Team MemberRelationshipSpecialtyStart DateEnd Date Jose Beckford MD [address] [place] [address] PCP - Generalmily Qpmhhrnb71/29/24 Jayy Coronado NP [address] [place] [address] Nurse Practitionermily Fmrfrwui50/29/24Team MemberRelationshipSpecialtyStart DateEnd Date Jose Beckford MD [address] [place] [address] PCP - Generalmily Pbgsbnms67/29/24 Jayy Coronado NP [address] [place] [address] Nurse Practitionermily Wpvkikui36/29/24Team MemberRelationshipSpecialtyStart DateEnd Date Thomas Hurtado MD [address] [place] [address] [place] Referring TeamPsychiatry12/21/21 Team Status: Inactive Member Role Status Dates NON STAFF Primary Care Provider Active Start: October 27, 2024 End: October 27ashish Toscano MDAttending ProviderActiveStart: October 27, 2024 End: October 27, 2024Team MemberRelationshipSpecialtyStart DateEnd Date Jose Beckford MD [address] [place] [address] PCP - GeneralC[facility] Ghdqlcwo67/29/24 Jayy Coronado NP [address] Nurse PractitionerBuena Vista Regional Medical Centerly Ucfxtjfi09/29/24Team MemberRelationshipSpecialtyStart DateEnd Date Jose Beckford MD [address] [place] [phone] PCP - GeneralFami Fkqaedox24/29/24 Jayy Coronado NP [address] [place] [address] Nurse PractitionerBuena Vista Regional Medical Centerly Ftmghakr41/29/24Team MemberRelationshipSpecialtyStart DateEnd Date Jose Beckford MD [address] [place] [address] PCP - GeneralC[facility] Hfylkiwo34/29/24 Jayy Coronado NP [address] [place] [address] Nurse PractitionerFamily Kiaecaff30/29/24Team MemberRelationshipSpecialtyStart DateEnd Date Jose Beckford MD [address] [place] [address] PCP - Generalmi Koevkxhd81/29/24 Jayy Coronado NP [address] [place] [address] Nurse Pract[facility]erSouth [facility]06/09/24Team MemberRelationshipSpecialtyStart DateEnd Date Jose Beckford MD [address] [place] [address] PCP - GeneralSouth [facility]06/09/24 Jayy Coronado NP [address] [place] [address] Nurse PractitionerSouth [facility] Medical Center06/09/24Team MemberRelationshipSpecialtyStart DateEnd Date Jose Beckford MD [address] [place] [address] PCP - Generalmi Qgwkqigk12/29/24 Jayy Coronado, PARI [address] [place] [address] Nurse PractitionerSouth [facility] Center06/09/24Team MemberRelationshipSpecialtyStart DateEnd Date Jose Beckford MD [address] [place] [address] PCP - Generalmi Jezirmkx98/29/24 Jayy Coronado NP [address] [place] [address] Nurse Practitionermily Ltwhbrpj43/29/24Team MemberRelationshipSpecialtyStart DateEnd Date Jose Beckford MD [address] [place] [address] PCP - GeneralFamily Bncebnfn22/29/24 Jayy Coronado NP [address] [place] [address] Nurse PractitionerCape [facility] Nldqtwob20/29/24Team MemberRelationshipSpecialtyStart DateEnd Date Jose Beckford MD [address] [place] [address] PCP - Generalmily Vcmfklhp80/29/24 Jayy Coronado NP [address] [place] [address] Nurse PractitionerCape Cod [facility] Dhvsteof77/29/24Team MemberRelationshipSpecialtyStart DateEnd Date Jose Beckford MD [address] [place] [address] PCP - GeneralFamily Yyxbflzp40/29/24 Jayy Coronado, PARI [address] [place] [address] Nurse PractitionerCape Cod [facility] Cabwkthy93/29/24Team MemberRelationshipSpecialtyStart DateEnd Date Jose Beckford MD [address] [place] [address] PCP - Generalmily Vbyguhgi97/29/24 Jayy Coronado NP [address] [place] [address] Nurse PractitionerSouth [facility] Center06/09/24 Team Status: Inactive Member Role Status Dates NON STAFF Primary Care Provider Active Start: January 19, 2025 End: January 19Nette Gudinoending ProviderActiveStart: January 19, 2025 End: January 19, 2025Team MemberRelationshipSpecialtyStart DateEnd Date Noa Watson, PHYTOPATHOLOGIST-MULTIFOCAL BUTTON GRINDER [address] [place] [address] PCP - GeneralNemours Foundation01/11/25Team MemberRelationshipSpecialtyStart Date End Date Jose Beckford MD [address] [place] [address] PCP - [facility]06/09/24 Jayy Coronado NP [address] [place] [address] Nurse PractitionerSouth [facility] Center06/09/24Team MemberRelationshipSpecialtyStart DateEnd Date Jose Beckford MD [address] [place] [address] PCP - GeneralSouth [facility] Medical Center06/09/24 Jayy Coronado NP [address] [place] [address] Nurse PractitionerSouth [facility] Medical Center06/09/24Team MemberRelationshipSpecialtyStart DateEnd Date Jose Beckford MD [address] [place] [address] PCP - GeneralFamily Jwcsxusd84/29/24 Jayy Coronado NP [address] [place] [address] Nurse PractitionerFamily Qydxhavo45/29/24Team MemberRelationshipSpecialtyStart DateEnd Date Noa Watson, PHYTOPATHOLOGIST-MULTIFOCAL BUTTON GRINDER PCP - [facility] [place] Practitioner01/11/25Team MemberRelationshipSpecialtyStart Date End Date Jose Beckford MD [address] [place] [address] PCP - Generalmily Dawiaxhs48/29/24 Jayy Coronado NP [address] [place] [address] Nurse PractitionerBuena Vista Regional Medical Centerly Mzsiuoqk71/29/24Team MemberRelationshipSpecialtyStart DateEnd Date Noa Watson, MULTIFOCAL BUTTON GRINDER [address] [place] [address] PCP - GeneralFamily Medicine04/01/25 Thomas Hurtado MD [address] [place] [address] [place] Referring TeamPsychiatry12/21/21Team MemberRelationshipSpecialtyStart DateEnd Date Noa Watson, MULTIFOCAL BUTTON GRINDER [address] [place] [address] PCP - GeneralFamily Medicine04/01/25 Thomas Hurtado MD [address] [place] [address] NI Referring TeamPsychiatry12/21/21Team MemberRelationshipSpecialtyStart DateEnd Date Noa Watson MÓNICA Clancy [address] [place] [address] PCP - GeneralFamily Medicine04/01/25 Thomas Hurtado MD [address] [place] [address] NI Referring TeamPsychiatry12/21/21Team MemberRelationshipSpecialtyStart DateEnd Date Shaikh Grimes MD PCP - GeneralInternal Medicine08/12/2309 Shaikh Grimes MD [address] [place] [address] PCP - [employer]/ Jose Beckford MD [address] [place] [address] PCP - GeneralFamily Tyrhoaku25/29/24 Jayy Coronado NP [address] [place] [address] Nurse Practitionermily Mkfwydpw64/29/24 Vannessa Russell, MINESH [address] [place] [address] Family Ocqdorhj28/6/2411 Goals (unrecognized section and content) Goals may [...] BE BASED ON THE PRIMARY CLINICAL RECORDS. [facility]. provides no warranty or guarantee of the accuracy or completeness of information in this document.
--- NOTE | 2025-07-12 13:17 | XR_ITS ---
The [place] [id number] Patient Name: KEL CASTILLO MRN: [id number] date: 1955 Sex: M Assigned Patient Location: LAB Current Patient Location: LAB Accession/Order Number: [id number] Exam Date: 07/12/2025 13:20 Report Date: 07/12/2025 13:32 At the request of: NOA CHRIS NP Procedure: XR chest 2V XR chest 2V 07/12/2025 1:30 PM SIGNS AND SYMPTOMS: ^Dyspnea PROTOCOL: Frontal and lateral radiographs of the chest COMPARISON: None FINDINGS: The trachea is midline. Sternotomy wires overlie the mediastinum. Atherosclerotic changes are noted thoracic aorta. There is mild cardiomegaly. There is scarring in the right lung apex and at the right lung base. Airspace opacities are present bilaterally along with interstitial prominence. The bony thorax is intact. XR/XR chest 2V IMPRESSION: Bilateral airspace opacities are noted with scarring at the right lung apex and along the right hemidiaphragm. There is mild cardiomegaly. Impression dictated by: Obdulio Mar M.D. 07/12/2025 1:32 PM Dictation Location: [place] [address] Electronically authenticated by: [id number] Y Date: 07/12/2025 13:32
[2025-07-12 13:20] LABS: Hematocrit 32.1 % (42.0-54.0); Hemoglobin 10.0 g/dL (14.0-18.0); Immature Granulocytes Abs Auto 0.10 10^3/uL (0.00-0.03); Immature Granulocytes Pct Auto 1.0 % (0.0-0.5); Lymphocytes Absolute Auto 0.8 10^3/uL (1.2-3.8); Mean Corpuscular HGB Conc 31.2 g/dL (29.9-35.2); Mean Corpuscular Hemoglobin 29.4 pg (25.9-34.0); Mean Corpuscular Volume 94.4 fL (80.0-94.0); Platelet Count 185 10^3/uL (150-450); Red Blood Count 3.40 10^6/uL (4.70-6.10); White Blood Count 10.3 10^3/uL (4.0-11.0)
[2025-07-12 13:45] LABS: Iron 53.0 ug/dL (65.0-175.0)
[2025-07-12 13:54] LABS: Alanine Aminotransferase 117 U/L (16-63); Albumin Globulin Ratio 0.8; Albumin Level 3.0 g/dL (3.4-5.0); Alkaline Phosphatase 241 U/L (46-116); Anion Gap 13.3; Aspartate Amino Transferase 102 U/L (15-37); Blood Urea Nitrogen 19.0 mg/dL (7.0-18.0); Calcium 8.8 mg/dL (8.5-10.1); Carbon Dioxide 27.1 mmol/L (21.0-32.0); Chloride 105 mmol/L (98-107); Estimated GFR (African America 51 (>=60 mL/min/1.73m^2); Estimated GFR (Non-African Ame 42 (>=60 mL/min/1.73m^2); Globulin 4.0 g/dL; Glucose 95 mg/dL (74-106); Potassium 4.4 mmol/L (3.5-5.1); Sodium 141 mmol/L (136-145); Total Protein 7.0 g/dL (6.4-8.2)
[2025-07-12 13:58] LABS: Ferritin 175.0 ng/mL (26.0-388.0)
[2025-07-12 14:33] LABS: NT Pro B Type Natriuretic Pept 11068.0 pg/mL (<=900.0)
== END 2025-07-12 12:53 | disposition home or self-care (01) ==
PROVIDERS: PCP Nurse Practitioner; Visit Provider Nurse Practitioner
DX: N18.4 Chronic kidney disease, stage 4 (severe) (principal); R06.00 Dyspnea, unspecified; K92.2 Gastrointestinal hemorrhage, unspecified; I50.9 Heart failure, unspecified
CPT/HCPCS: 36415; 71046; 80053; 82728; 83540; 83880; 85025

== ENCOUNTER 2025-07-12 22:09 | Inpatient (IN) | payer MEDICARE, SELFPAY ==
--- OUTSIDE RECORDS SUMMARY | 2025-06-28 17:59 | XMS_ITS | Encounter Summary ---
Author Organization [facility] [place] [address] Care Team Providers Care Watchmaking Teacher Name Role Phone Susan Watson MD Primary Care Provider [phone] Reason for Visit * ReasonCommentsRectal BleedingSTATES HE STARTED TO PASS BRIGHT RED BLOOD AND THE CLOTS WERE DARKER. * Auth/Cert (Routine)SpecialtyDiagnoses / ProceduresReferred By ContactReferred To Contact Diagnoses Rectal bleeding Procedures NO CODED SERVICE German Cabral MD [address] [place] [address] Phone: tel: fax: [facility] Emergency [address] [place] [address] Phone: tel: fax: Referral IDStatusReasonStart DateExpiration DateVisits RequestedVisits [id number] Encounter Details DateTypeDepartmentCare Team (Latest Contact Info)Lmqahzuyfxx33/17/2025 5:59 PM EST - 07/01/2025 6:53 PM ESTHospital Encounter [facility] [address] [place] [address] Cleopatra Curiel MD [address] [address] German Cabral MD [address] [place] [address] French Newsome MD [address] [place] [address] Lower GI bleed (Primary Dx); Diverticular hemorrhage; Metabolic acidosis Discharge Disposition: Home or Self Care () Social History Tobacco UseTypesPacks/DayYears UsedDateSmoking Tobacco: FormerCigarettes Smokeless Tobacco: CurrentChewAlcohol UseStandard Drinks/WeekCommentsNot Currently0 (1 standard drink = 0.6 oz pure alcohol)PHQ-2AnswerDate Recorded Patient Health Questionnaire-2 Staey82508/14/2024Humiliation, Afraid, Rape, and Kick questionnaireAnswerDate RecordedWithin the last year, have you been afraid of your partner or ex-partner?No06/29/2025Emotionally AbusedNot on file 06/29/2025Physically AbusedNot on file06/29/2025Sexually AbusedNot on file 06/29/2025Social Connection and Isolation PanelAnswerDate RecordedIn a typical week, how many times do you talk on the phone with family, friends, or neighbors?More than three times a week06/15/2025How often do you get together with friends or relatives?More than three times a week06/15/2025How often do you attend synagogue or christianity services?Never06/15/2025Do you belong to any clubs or organizations such as synagogue groups, unions, fraternal or athletic groups, or school groups?No06/15/2025How often do you attend meetings of the clubs or organizations you belong to?Never06/15/2025re you , , , , never , or living with a partner?Esyaermzh01/04/2025UDIT-C AnswerDate RecordedQ1: How often do you have a drink containing alcohol?Never 06/15/2025Q2: How many drinks containing alcohol do you have on a typical day when you are drinking?Patient does not drink06/15/2025Q3: How often do you have six or more drinks on one occasion?Never06/15/2025Overall Financial Resource Strain (CARDIA)AnswerDate RecordedHow hard is it for you to pay for the very basics like food, housing, medical care, and heating?Not hard at all06/29/2025 [place] - Occupational Stress Questionnaire AnswerDate RecordedDo you feel stress - tense, restless, nervous, or anxious, or unable to sleep at night because yourmind is troubled all the time - these days? Only a xvwfqx0706/15/2025HC UtilitiesAnswerDate RecordedIn the past 12 months has the [employer] gas, oil, or water [employer] threatened to shut off services in your home?No06/29/2025TransportationAnswerDate RecordedIn the past 12 months, has lack of transportation kept you from medical appointments or from getting medications?No06/29/2025In the past 12 months, has lack of transportation kept you from meetings, work, or from getting things needed for daily living?No 06/29/2025Housing Stability Vital SignAnswerDate RecordedIn the last 12 months, was there a time when you were not able to pay the mortgage or rent on time?No 06/29/2025In the past 12 months, how many times have you moved where you were living?t any time in the past 12 months, were you homeless or living in a [place] (including now)?No06/29/2025Hunger Vital SignAnswerDate Recorded Within the past 12 months, you worried that your food would run out before you got the money to buymore.Never true06/29/2025Within the past 12 months, the food you bought just didn't last and you didn't have money to get more.Never true 06/29/2025Sex and Gender InformationValueDate RecordedSex Assigned at BirthMale 04/08/2025 7:15 AM EDTLegal EykLexq5302/07/2022 10:15 PM EDTGender IdentityMale 04/08/2025 7:15 AM EDTSexual OrientationHeterosexual or Wsqqbgeb08/28/2025 7:15 AM EDTdocumented as of this encounter Last Filed Vital Signs Vital SignReadingTime TakenCommentsBlood Hsdxbtqx441/5707/01/2025 4:16 PM EST Etqeq251707/01/2025 4:16 PM GCFQkcfmkyrqut03.9 ??C (96.6 ??F)07/01/2025 4:16 PM ESTRespiratory Mjcs816908/31/2024 4:16 PM ESTOxygen Mdowkuklxd06%07/01/2025 4:16 PM ESTInhaled Oxygen Concentration--Eolerr30.3 kg (152 lb 12.8 oz)07/01/2025 5:59 AM HBPOrnnxk731.3 cm (5' 9 )06/30/2025 1:22 PM ESTBody Mass Index22.56 06/30/2025 1:22 PM ESTdocumented in this encounter Functional Status * Suicidal IdeationQuestionAnswerDate of AssessmentAuthor1. Wish to be (Lifetime)No06/29/2025 11:38 AM Brianne Dacosta RN2. Non-Specific Active Suicidal Thoughts (Lifetime)No06/29/2025 11:38 AM Brianne Dacosta RN documented as of this encounter Discharge Instructions * Discharge Instructions* French Newsome MD - 07/01/2025 3:58 PM EST Please follow up with primary care physician within 1 week. - On CT abd/pelvis, you had multiple indeterminate right renal lesions. Further characterization with renal mass protocol MRI recommended. - There were groundglass opacities that were appreciated on CT abd/pelvis. You may need repeat imaging study to ensure resolution of the groundglass opacities. Please follow up with vascular surgery within 1 week. Please follow up with gastroenterology within 1 week. Please take medications as prescribed. - Please take bicarb 1300mg two times per day for 2 days followed by 650mg two times per day for 5 days. Then have your lab work (BMP) completed. Please have lab work (BMP) completed on 07/08/2025. Please have lab work (CBC) completed on 07/05/2025. Please do not hesitate to return to the hospital if you have any concerning symptoms. * Discharge Instr - Activity* Pina Coronado RN - 07/01/2025 4:38 PM EST Resume activity as tolerated. * Discharge Instr - Diet* Pina Coronado RN - 07/01/2025 4:37 PM EST Regular Diet Heart Healthy/HTN, CABG,Stroke, (2gNA, low fat, low cholesterol) * Discharge Instr - Other Orders* Pina Coronado RN - 07/01/2025 4:43 PM EST WOUNDS: Cover wounds with dry dressing. Change every other day and as needed. * Attachments The following attachments cannot be sent through Care Everywhere. * Diverticulosis ([place]atem[place]) * Heart Failure Diagnosis Wbac-vs-Qnzc ([place]atem[place]) documented in this encounter Medications at Time of Discharge MedicationSigDispense QuantityRefillsLast FilledStart DateEnd Date acetaminophen (Tylenol Extra Strength) 500 mg tablet Indications:Lower extremity pain, bilateralTake 2 tablets (1,000 mg) by mouth every 6 (six) hours if needed for moderate pain (4-7 pain score). 30 tablet albuterol 90 mcg/actuation inhaler INHALE 1 PUFF BY MOUTH EVERY 4 HOURS GKXKNZ2012/02/2021 aspirin 81 mg EC tablet Take 1 tablet by mouth in the morning. atorvastatin (Lipitor) 80 mg tablet Take 80 mg by mouth at bedtime. buPROPion XL (Wellbutrin XL) 300 mg 24 hr tablet Use 1 tablet in the mouth or throat in the morning. busPIRone (Buspar) 15 mg tablet Take 1 tablet by mouth in the morning and at bedtime. clopidogrel (Plavix) 75 mg tablet Take 75 mg by mouth in the morning. famotidine (Pepcid) 20 mg tablet Take 20 mg by mouth twice a day.10/08/2024 fenofibrate micronized (Antara) 43 mg capsule Take 1 capsule by mouth in the morning and at bedtime. wrygjezsylc-otlgvghkg-dcdsskmn (Trelegy Ellipta) 100-62.5-25 mcg blister with device Inhale 1 puff in the morning.02/18/2024 metoprolol tartrate (Lopressor) 50 mg tablet Take 50 mg by mouth two times daily. nitroglycerin (Nitrostat) 0.4 mg SL tablet 06/17/2024 OLANZapine (ZyPREXA) 5 mg tablet Take 5 mg by mouth at bedtime. rivaroxaban (Xarelto) 2.5 mg tablet Indications:Peripheral arterial occlusive disease,Atherosclerosis of arteries of extremitiesTake 1 tablet (2.5 mg) by mouth two times daily for 197 doses. 90 tablet sertraline (Zoloft) 100 mg tablet Take 2 tablets by mouth in the morning. traZODone (Desyrel) 100 mg tablet Take 1 tablet by mouth at bedtime. amLODIPine (Norvasc) 5 mg tablet Take 1 tablet by mouth two times daily.07/06/2025 sodium bicarbonate 650 mg tablet Indications:Metabolic acidosisTake 2 tablets (1,300 mg) by mouth two times daily for 2 days, THEN 1 tablet (650 mg) two times daily for 5 days. 18 tablet sodium zirconium cyclosilicate (Lokelma) 10 gram packet Indications:Kidney disease, chronic, stage IV (GFR 15-29 ml/min) (CMS/HCC), Essential hypertension,HyperkalemiaTake 10 g by mouth 3 (three) times a week. 120 g documented as of this encounter Progress Notes * Paradise Freeman MD - 07/01/2025 8:11 AM EST Images from the original note were not included. [facility] Vascular and Wound Surgery DAILY PROGRESS NOTE Subjective No acute events overnight. Colonoscopy rescheduled to today due to poor prep. Hemoglobin stable. Objective Vitals: Vitals: 07/01/25 0400 BP: (!) 128/48 Pulse: 62 Resp: 17 Temp: SpO2: 99% I/O last 3 completed shifts: In: 568.3 (8.2 mL/kg) [P.O.:360; I.V.:208.3 (3 mL/kg)] Out: 200 (2.9 mL/kg) [Urine:200 (0.1 mL/kg/hr)] Weight: 69.3 kg No intake/output data recorded. Physical Exam Physical Exam Constitutional: Appearance: Normal appearance. HENT: Head: Normocephalic and atraumatic. Cardiovascular: Rate and Rhythm: Normal rate and regular rhythm. Abdominal: General: There is no distension. Palpations: Abdomen is soft. Tenderness: There is no abdominal tenderness. Skin: General: Skin is warm and dry. Comments: Dehiscence of right groin and right thigh sites. Right thigh closed, right thigh with small open area. Dry scabs. No drainage Neurological: General: No focal deficit present. Mental Status: He is alert and oriented to person, place, and time. Mental status is at baseline. Psychiatric: Mood and Affect: Mood normal. Behavior: Behavior normal. Thought Content: Thought content normal. Labs: Results from last 7 days Lab Units 07/01/25 0651 06/29/25 2310 06/29/25 1747 06/29/25 0918 06/29/25 0545 06/29/25 0033 06/28/25 1839 06/26/25 1445 06/25/25 1529 WBC AUTO 10*3/uL -- -- -- -- 4.90 -- 5.72 5.25 5.31 HEMOGLOBIN g/dL 11.3* 10.5* 12.4* 10.9* 8.9* 7.6* 9.7* 10.0* 8.4* HEMATOCRIT % 35.8* -- -- 33.8* 28.6* 24.3* 30.8* 31.6* 26.6* PLATELETS AUTO 10*3/uL -- -- -- -- 146* -- 164 179 173 Results from last 7 days Lab Units 06/29/25 0545 06/28/25 1839 06/26/25 1445 06/25/25 1529 SODIUM mmol/L 137 135* 136 136 POTASSIUM mmol/L 5.1 5.1 5.2* 5.5* CO2 mmol/L 21 19* 18* 21 BUN mg/dL 23 27* 30* 33* CREATININE mg/dL 1.63* 1.88* 2.03* 1.97* Results from last 7 days Lab Units 06/26/25 1445 06/25/25 1529 INR 1.12* 1.22* Medications: atorvastatin, 80 mg, oral, Nightly bisacodyl, 10 mg, oral, BID BETA buPROPion XL, 300 mg, oral, q AM busPIRone, 15 mg, oral, BID clopidogrel, 75 mg, oral, Daily metoprolol tartrate, 50 mg, oral, BID traZODone, 100 mg, oral, Nightly Imaging: Diagnostic Colonoscopy Table formatting from the original result was not included. Colonoscopy Procedure Note Procedure: Colonoscopy with anesthesia Indications: 70 y.o. male presenting for colonoscopy for evaluation of hematochezia and anemia Sedation: MAC Medications: No administrations occurring from 1358 to 1420 on 06/30/25 Attending Physician: Kortney Gandhi MD Infection Control Nurse: None Procedure Details Informed consent was obtained for the procedure, including sedation. Risks of perforation, hemorrhage, adverse drug reaction and aspiration were discussed. The patient was placed in the left lateral decubitus position. The patient was monitored continuously with ECG tracing, pulse oximetry, blood pressure monitoring, and direct observations. A rectal examination was performed. The pediatric colonoscope was inserted into the rectum and advanced under direct vision to the sigmoid colon. A careful inspection was made as the colonoscope was withdrawn, including a retroflexed view of the rectum; findings and interventions are described below. Appropriate photodocumentation was obtained. Findings: Thick liquid stool and solid stool preventing advancement of the scope and obscuring views, therefore, the colonoscope was withdrawn. Quality of colonic prep: Poor Withdrawal time: 1 minute Specimens: No specimens collected Complications: None Estimated blood loss: None Disposition: Home Condition: stable Impression: Thick liquid stool and solid stool preventing advancement of the scope and obscuring views, therefore, the colonoscope was withdrawn. Recommendations: Continue bowel pre and plan for colonoscopy tomorrow Attending Attestation: I performed the procedure. Active Inpatient Problems Principal Problem: Rectal bleeding Active Problems: Chronic kidney disease, stage 4 (severe) (CMS/HCC) Chronic obstructive pulmonary disease, unspecified (CMS/HCC) Mixed hyperlipidemia Hypertensive disorder S/P femoropopliteal bypass surgery Coronary artery disease involving [place] coronary artery of [place] heart without angina pectoris Peripheral vascular disease Elevated LFTs Chronic heart failure with mildly reduced ejection fraction (HFmrEF) (CMS/HCC) Renal lesion S/P CABG (coronary artery bypass graft) Vascular/Wound Care Assessment/Plan You Garcia is a 70 y.o.male s/p right femoropopliteal bypass with graft currently on Xarelto and Plavix who presents with GI bleeding likely from sigmoid diverticula. Hemoglobin currently stable. Patient's case, imaging, and labs were reviewed by and discussed with Dr. Andre, and after thorough discussion, the plan for the patient is as follows: Will follow up colonoscopy findings Okay to hold Xarelto, but continue Plavix as patient is high risk of graft occlusion. Discussed with GI Cover wounds with dry dressing. Change every other day and PRN Monitor hemoglobin and transfuse prn Rest of care per primary Paradise Freeman MD General Surgery Resident PGY3 Cosigned by Chris Andre MD at 07/01/2025 9:38 PM EST * Mary Keys PA-C - 06/30/2025 2:40 PM EST Images from the original note were not included. [facility] Vascular and Wound Surgery DAILY PROGRESS NOTE Subjective Patient seen and examined at bedside. Denies significant pain to RLE surgical sites. Continues to have bloody bowel movements. Will go with GI for scope today. Xarelto held, remains on plavix due occlusion risk. Objective Vitals: Vitals: 06/30/25 1430 BP: (!) 119/44 Pulse: 61 Resp: 22 Temp: SpO2: 100% I/O last 3 completed shifts: In: 3053.4 (38.8 mL/kg) [P.O.:1120; I.V.:114.7 (1.5 mL/kg); Blood:818.8; IV Piggyback:1000] Out: 1351 (17.1 mL/kg) [Urine:1350 (0.5 mL/kg/hr); Stool:1] Weight: 78.8 kg I/O this shift: In: 208.3 [I.V.:208.3] Out: 100 [Urine:100] Physical Exam Physical Exam Constitutional: Appearance: Normal appearance. HENT: Head: Normocephalic and atraumatic. Cardiovascular: Rate and Rhythm: Normal rate and regular rhythm. Abdominal: General: There is no distension. Palpations: Abdomen is soft. Tenderness: There is no abdominal tenderness. Skin: General: Skin is warm and dry. Comments: Dehiscence of right groin and right thigh sites. Right thigh closed, right thigh with small open area. Dry scabs. No drainage Neurological: General: No focal deficit present. Mental Status: He is alert and oriented to person, place, and time. Mental status is at baseline. Psychiatric: Mood and Affect: Mood normal. Behavior: Behavior normal. Thought Content: Thought content normal. Labs: Results from last 7 days Lab Units 06/29/25 2310 06/29/25 1747 06/29/25 0918 06/29/25 0545 06/29/25 0033 06/28/25183806/26/25 1445 06/25/25 1529 WBC AUTO 10*3/uL -- -- -- 4.90 -- 5.72 5.25 5.31 HEMOGLOBIN g/dL 10.5* 12.4* 10.9* 8.9* 7.6* 9.7* 10.0* 8.4* HEMATOCRIT % -- -- 33.8* 28.6* 24.3* 30.8* 31.6* 26.6* PLATELETS AUTO 10*3/uL -- -- -- 146* -- 164 179 173 Results from last 7 days Lab Units 06/29/25 0545 06/28/25 1839 06/26/25 1445 06/25/25 1529 SODIUM mmol/L 137 135* 136 136 POTASSIUM mmol/L 5.1 5.1 5.2* 5.5* CO2 mmol/L 21 19* 18* 21 BUN mg/dL 23 27* 30* 33* CREATININE mg/dL 1.63* 1.88* 2.03* 1.97* Results from last 7 days Lab Units 06/26/25 1445 06/25/25 1529 INR 1.12* 1.22* Medications: atorvastatin, 80 mg, oral, Nightly bisacodyl, 10 mg, oral, BID bisacodyl, 10 mg, oral, BID BETA buPROPion XL, 300 mg, oral, q AM busPIRone, 15 mg, oral, BID clopidogrel, 75 mg, oral, Daily metoprolol tartrate, 50 mg, oral, BID polyethylene glycol-electrolytes, 4,000 mL, oral, Once traZODone, 100 mg, oral, Nightly Imaging: Diagnostic Colonoscopy Table formatting from the original result was not included. Colonoscopy Procedure Note Procedure: Colonoscopy with anesthesia Indications: 70 y.o. male presenting for colonoscopy for evaluation of hematochezia and anemia Sedation: MAC Medications: No administrations occurring from 1358 to 1420 on 06/30/25 Attending Physician: Kortney Gandhi MD Infection Control Nurse: None Procedure Details Informed consent was obtained for the procedure, including sedation. Risks of perforation, hemorrhage, adverse drug reaction and aspiration were discussed. The patient was placed in the left lateral decubitus position. The patient was monitored continuously with ECG tracing, pulse oximetry, blood pressure monitoring, and direct observations. A rectal examination was performed. The pediatric colonoscope was inserted into the rectum and advanced under direct vision to the sigmoid colon. A careful inspection was made as the colonoscope was withdrawn, including a retroflexed view of the rectum; findings and interventions are described below. Appropriate photodocumentation was obtained. Findings: Thick liquid stool and solid stool preventing advancement of the scope and obscuring views, therefore, the colonoscope was withdrawn. Quality of colonic prep: Poor Withdrawal time: 1 minute Specimens: No specimens collected Complications: None Estimated blood loss: None Disposition: Home Condition: stable Impression: Thick liquid stool and solid stool preventing advancement of the scope and obscuring views, therefore, the colonoscope was withdrawn. Recommendations: Continue bowel pre and plan for colonoscopy tomorrow Attending Attestation: I performed the procedure. Active Inpatient Problems Principal Problem: Rectal bleeding Active Problems: Chronic kidney disease, stage 4 (severe) (CMS/HCC) Chronic obstructive pulmonary disease, unspecified (CMS/HCC) Mixed hyperlipidemia Hypertensive disorder S/P femoropopliteal bypass surgery Coronary artery disease involving [place] coronary artery of [place] heart without angina pectoris Peripheral vascular disease Elevated LFTs Chronic heart failure with mildly reduced ejection fraction (HFmrEF) (CMS/HCC) Renal lesion S/P CABG (coronary artery bypass graft) Vascular/Wound Care Assessment/Plan You Garcia is a 70 y.o.male s/p right femoropopliteal bypass with graft currently on Xarelto and Plavix who presents with GI bleeding likely from sigmoid diverticula Will follow up colonoscopy findings and plan intervention as needed Okay to hold Xarelto, but continue Plavix as patient is high risk of graft occlusion. Discussed with GI Cover wounds with dry dressing. Change every other day and PRN Monitor hemoglobin and transfuse prn Rest of care per primary Mary Keys PA-C Vascular/Wound Service Please direct primary wound calls to: [phone] Please direct primary vascular calls to: [phone] This note was created with the assistance of a speech-recognition program. While intending to generate a document that accurately reflects the content of the encounter, no guarantee can be provided that every mistake has been identified and corrected by editing ' * French Newsome MD - 06/30/2025 2:11 PM EST Images from the original note were not included. [facility] Medicine Daily Progress Note - 06/30/2025 2:11 PM; Room: [address] [place] [address] Admission: 06/28/2025 5:59 PM; Length of stay: 0 days THE HOSPITALIST TEAM PREFERS TO USE [employer] CHAT FOR NON-URGENT COMMUNICATION 7AM- 7PM. IF I DO NOT RESPOND WITHIN 20 MINUTES OR URGENT MATTERS, PLEASE CALL THROUGH THE BRIDGE WORKER. FROM 7PM-7AM, PLEASE PAGE [phone](COVR). Code Status: Full Code Barriers to Discharge: colonoscopy Expected Discharge Date: 07/01 Discharge Destination: home Overview Patient is seen for evaluation and management of rectal bleed. Subjective Patient seen and examined in the morning. He was resting in bed. He was doing fine this morning. Heunderwent bowel prep and stated that he did not see any blood in bowel movement overnight. Physical Exam Visit Vitals BP (!) 127/44 Pulse 63 Temp 35.9 ??C (96.6 ??F) (Temporal) Resp 16 Intake/Output Summary (Last 24 hours) at 06/30/2025 1411 Last data filed at 06/30/2025 0815 Gross per 24 hour Intake 1120 ml Output 400 ml Net 720 ml Physical Exam Vitals reviewed. Constitutional: General: He is not in acute distress. Appearance: He is not ill-appearing or toxic-appearing. HENT: Head: Normocephalic and atraumatic. Mouth/Throat: Mouth: Mucous membranes are moist. Eyes: General: No scleral icterus. Extraocular Movements: Extraocular movements intact. Pupils: Pupils are equal, round, and reactive to light. Cardiovascular: Rate and Rhythm: Normal rate. Pulmonary: Effort: Pulmonary effort is normal. No respiratory distress. Breath sounds: No stridor. Abdominal: General: There is no distension. Palpations: Abdomen is soft. There is no mass. Tenderness: There is no abdominal tenderness. There is no guarding. Neurological: Mental Status: He is alert. Mental status is at baseline. Cranial Nerves: No cranial nerve deficit. Psychiatric: Mood and Affect: Mood normal. Behavior: Behavior normal. Thought Content: Thought content normal. Judgment: Judgment normal. Estimated body mass index is 25.65 kg/m?? as calculated from the following: Height as of this encounter: 1.753 m (5' 9 ). Weight as of this encounter: 78.8 kg (173 lb 11.6 oz). Assessment and Plan Assessment & Plan Rectal bleeding - Likely is having an active diverticular bleed - Currently is hemodynamically stable - Received 2 units of packed RBCs and monitor hemoglobin closely - GI following, undergoing colonoscopy today - Holding Xarelto, will await results of colonoscopy Coronary artery disease involving [place] coronary artery of [place] heart without angina pectoris S/P CABG (coronary artery bypass graft) - No active chest pain or shortness of breath, has nitro as needed - Previous home medication list shows he is on aspirin, Plavix, metoprolol, atorvastatin and fenofibrate - Plavix continued Peripheral vascular disease S/P femoropopliteal bypass surgery - was on dual antiplatelet therapy plus Xarelto - vascular surgery following and recommending to continue plavix at this time Chronic heart failure with mildly reduced ejection fraction (HFmrEF) [place] - Difficult to determine NYHA class - EF 40-45% - currently is euvolemic Chronic kidney disease, stage 4 (severe) [place] [place] - renal function at baseline - Monitor with daily BMP Chronic obstructive pulmonary disease, unspecified ([facility] [place] - respiratory status is stable, albuterol as needed and continue Trelegy Ellipta Mixed hyperlipidemia - continue atorvastatin and fenofibrate Hypertensive disorder - continue amlodipine, metoprolol - Blood pressure within acceptable range on 06/30 Elevated LFTs - monitor clinically Renal lesion - Outpatient MRI VTE Prophylaxis: Contraindicated due to GI bleed Scheduled Meds atorvastatin, 80 mg, oral, Nightly bisacodyl, 10 mg, oral, BID buPROPion XL, 300 mg, oral, q AM busPIRone, 15 mg, oral, BID clopidogrel, 75 mg, oral, Daily metoprolol tartrate, 50 mg, oral, BID traZODone, 100 mg, oral, Nightly Pertinent Investigations Hematology: Results from last 7 days Lab Units 06/29/25 2310 06/29/25 1747 06/29/25 0918 06/29/25 0545 06/29/25 0033 06/28/25 1839 06/26/25 1445 06/25/25 1529 WBC AUTO 10*3/uL -- -- -- 4.90 -- 5.72 5.25 5.31 HEMOGLOBIN g/dL 10.5* 12.4* 10.9* 8.9* < > 9.7* 10.0* 8.4* HEMATOCRIT % -- -- 33.8* 28.6* < > 30.8* 31.6* 26.6* MCV fL -- -- -- 95.0 -- 95.1 96.3 95.3 PLATELETS AUTO 10*3/uL -- -- -- 146* -- 164 179 173 INR -- -- -- -- -- -- 1.12* 1.22* < > = values in this interval not displayed. Chemistry: Results from last 7 days Lab Units 06/29/25 0545 06/28/25 1839 06/26/25 1445 06/25/25 1529 SODIUM mmol/L 137 135* 136 136 POTASSIUM mmol/L 5.1 5.1 5.2* 5.5* CHLORIDE mmol/L 111* 108* 109* 109* CO2 mmol/L 21 19* 18* 21 BUN mg/dL 23 27* 30* 33* CREATININE mg/dL 1.63* 1.88* 2.03* 1.97* GLUCOSE mg/dL 80 73 84 73 MAGNESIUM mg/dL -- -- -- 1.9 CALCIUM mg/dL 8.6 9.2 9.3 9.1 PHOSPHORUS mg/dL -- -- -- 3.0 Results from last 7 days Lab Units 06/29/25 0545 06/28/25 1839 06/26/25 1445 AST U/L 49* 75* 59* ALT U/L 45 62* 46 ALK PHOS U/L 187* 247* 220* BILIRUBIN TOTAL mg/dL 1.1* 0.9 0.7 Results from last 7 days Lab Units 06/30/25 1323 POCT GLUCOSE mg/dL 53* Historical Values: (Includes values prior to this admission) No results found for: PREALBUMIN , TSH , T3FREE , FREET4 , CORTISOL , FEV1 , [id number] , DLCO , RVSP , HDL , LDL No results found for: [id number] , IRON , TIBC , C3 , C4 , MILENA , CANCA , ASO , PSA , CEA , CA125 , CA199 , AFP , CA153 Imaging CTA Abdomen Pelvis W IV Contrast Narrative: CT ANGIOGRAM ABDOMEN/PELVIS CLINICAL INFORMATION: ] Bleeding per rectum COMPARISON: 06/26/2025 TECHNIQUE: Multidetector CT Angiogram performed with IV contrast through the abdomen and pelvis including 3-D Maximum intensity projection reconstructions constructed under concurrent physician supervision on a independent workstation. 3 D images obtained to improve visualization of vascular detail. Automated exposure control was utilized. All CT scans at this facility use dose modulation, iterative reconstruction, and/or weight based dosing when appropriate to reduce radiation dose to as low as reasonably achievable. FINDINGS: VASCULAR FINDINGS: Aorta: Patent without significant stenosis. Nonaneurysmal.Severe atherosclerotic disease. Celiac artery: Patent. Atherosclerotic disease causing [id number]-njdsozed ostial stenosis. Superior mesenteric artery: Patent. Atherosclerotic disease causing mild proximal stenosis. Renal arteries: Patent. Atherosclerotic disease causing moderate stenosis. Inferior mesenteric artery: Patent. Right iliac arterial system: Patent. Atherosclerotic disease. Moderate stenosis of the internal iliac. Left iliac arterial system: Patent. Moderate atherosclerotic disease. Moderate stenosis of the internal iliac. NONVASCULAR FINDINGS: LOWER CHEST: Bibasilar atelectasis and scarring. Groundglass opacities of the right lung base could be infectious/inflammatory or atelectasis. Cardiomegaly. Coronary artery calcifications. Prominent bilateral hilar lymph nodes. No pleural or pericardial effusion. LIVER AND BILIARY: Noncirrhotic liver morphology. No suspicious hepatic lesion. Gallbladder is unremarkable. No biliary ductal dilatation. The pancreas and adrenal glands demonstrate no acute abnormality. Enlarged spleen measures 14.8 cm craniocaudal. KIDNEYS, URETERS, AND BLADDER: Symmetric renal enhancement. Redemonstrated indeterminate 2.3 cm right renal lesion does not meet criteria for simple cyst. There are additional 1.0 cm right renal lesions that are also technically indeterminate. Further characterization with renal protocol MRI recommended. No collecting system dilatation. Urinary bladder is unremarkable. GI TRACT AND PERITONEUM: No significant free fluid. No free air. Colonic diverticulosis without diverticulitis. Appendix is unremarkable. Evolving intraluminal blood products within the sigmoid colon, likely related to diverticular disease. LYMPH NODES: No lymphadenopathy. REPRODUCTIVE ORGANS: Unremarkable MUSCULOSKELETAL/soft tissues: Similar-appearing fluid collection overlying the proximal portion of the bypass graft in the right groin measuring approximately 3.4 x 2.8 cm. Multilevel degenerative changes spine. Impression: * Possible bleeding diverticula within the sigmoid colon with evidence of evolving intraluminal blood products on the arterial and delayed phases. * Groundglass opacities of the right lung base could be infectious/inflammatory or atelectasis. Correlate clinically. * Multiple indeterminate right renal lesions. Further characterization with renal mass protocol MRI recommended. * Similar-appearing fluid collection overlying the proximal portion of the bypass graft in the right groin measuring approximately 3.4 x 2.8 cm Approved by:Michael Lee06/28/2025 10:03 PM. I, Bryson Grant,have reviewed the image(s) and agree with the findings in this report. Electronically signed: Bryson Grant. Discharge Planning Signed French Newsome MD [facility] 06/30/2025 2:11 PM documented in this encounter H&P Notes * Christie Horton MD - 07/01/2025 1:27 PM EST H&P reviewed. The patient was examined and there are no changes to the H&P. The patient had 1 episode of hematochezia with 2 g drop in his hemoglobin. He is scheduled to have a colonoscopy to assess the colon for etiology of hematochezia. Source Note - Maria Eugenia Dodd MD - 06/29/2025 7:10 AM EST Initial Gastroenterology/Hepatology Consultation Note IDENTIFYING DATA PATIENT: You Garcia ADMIT DATE: 06/28/2025 TIME OF EVALUATION: 06/29/2025 7:10 AM Reason for Consult: GI bleed GI bleed Admitting Physician: French Newsome MD HISTORY OF PRESENT ILLNESS You Garcia is a 70 y.o. male with past medical history of CAD s/p CABG, COPD, hyperlipidemia, essential hypertension, CKD stage IV, heart failure with mildly reduced ejection fraction and movement disorder, presented from home with chief complaint of bloody bowel movement. Patient reported that he had 1 episode of bright red blood per rectum on the morning of 06/28. Thiswas reported as bright red blood, patient also had a small bowel movement with it, small amount of clots noted. Patient denies any previous similar episodes. Denies NSAID use, denies abdominal pain, fever/chills, weight loss. On presentation, patient was hemodynamically stable. Significant labs on presentation included hemoglobin 9.7, sodium 135, bicarb 19, creatinine 1.88, AST 75, ALT 62, total bilirubin 0.9, alk phos 247. Hemoglobin then dropped to 7.6, 1 PRBC unit transfused repeat hemoglobin was 8.9. CTA with contrast showed possible bleeding diverticula within the sigmoid colon with evidence of evolving intraluminal blood products on the arterial and delayed phases. Ground glass opacities of right lung base, multiple indeterminate right renal lesions. GI consulted for GI bleed. GI HISTORY SUMMARY TABLE Last EGD Last colonoscopy Last colonoscopy in 2020, no records available. Patient unsure of results. Primary GI physician PAST MEDICAL, SURGICAL, FAMILY, and SOCIAL HISTORY Past Medical History: Medical History[1] Past Surgical History: Surgical History[2] Family History: Family History[3] Social History: Social History[4] Allergies: Allergies[5] MEDICATIONS Home Medications: Prior to Admission medications Medication Sig Start Date End Date Taking? Authorizing Provider acetaminophen (Tylenol Extra Strength) 500 mg tablet Take 2 tablets (1,000 mg) by mouth every 6 (six) hours if needed for moderate pain (4-7 pain score). 06/09/25 08/08/25 Lisa Levy MD albuterol 90 mcg/actuation inhaler INHALE 1 PUFF BY MOUTH EVERY 4 HOURS NEEDED 12/02/21 Historical Provider, amLODIPine (Norvasc) 5 mg tablet Take 1 tablet by mouth two times daily. Historical Provider, aspirin 81 mg EC tablet Take 1 tablet by mouth in the morning. Historical Provider, atorvastatin (Lipitor) 80 mg tablet Take 80 mg by mouth at bedtime. 10/08/24 06/25/25 Historical Provider, buPROPion XL (Wellbutrin XL) 300 mg 24 hr tablet Use 1 tablet in the mouth or throat in the morning. Historical Provider, busPIRone (Buspar) 15 mg tablet Take 1 tablet by mouth in the morning and at bedtime. Historical Provider, clopidogrel (Plavix) 75 mg tablet Take 75 mg by mouth in the morning. Historical Provider, famotidine (Pepcid) 20 mg tablet Take 20 mg by mouth twice a day. 10/08/24 06/25/25 Historical Provider, fenofibrate micronized (Antara) 43 mg capsule Take 1 capsule by mouth in the morning and at bedtime. Historical Provider, kpypxjhcaow-pjwznrotm-qhzeraax (Trelegy Ellipta) 100-62.5-25 mcg blister with device Inhale 1 puff in the morning. 02/18/24 Historical Provider, metoprolol tartrate (Lopressor) 50 mg tablet Take 50 mg by mouth two times daily. Historical Provider, nitroglycerin (Nitrostat) 0.4 mg SL tablet 06/17/24 Historical Provider, OLANZapine (ZyPREXA) 5 mg tablet Take 5 mg by mouth at bedtime. Historical Provider, rivaroxaban (Xarelto) 2.5 mg tablet Take 1 tablet (2.5 mg) by mouth two times daily for 197 doses. 06/09/25 09/16/25 Lisa Levy MD sertraline (Zoloft) 100 mg tablet Take 2 tablets by mouth in the morning. Historical Provider, sodium zirconium cyclosilicate (Lokelma) 10 gram packet Take 10 g by mouth 3 (three) times a week. 05/26/25 Batsheva Beckwith MD sulfamethoxazole-trimethoprim (Bactrim DS) 800-160 mg tablet Take 1 tablet by mouth every 12 (twelve) hours for 7 days. 06/19/25 06/26/25 Demetris Swain MD traZODone (Desyrel) 100 mg tablet Take 1 tablet by mouth at bedtime. Historical Provider, Current Medications: PRNs: acetaminophen, 650 mg, q6h PRN melatonin, 5 mg, Nightly PRN ondansetron ODT, 4 mg, q8h PRN Or ondansetron, 4 mg, q6h PRN REVIEW OF SYSTEMS See HPI, otherwise ROS negative as below CONSTITUTIONAL: negative HEENT: negative RESPIRATORY: negative CARDIOVASCULAR: negative GASTROINTESTINAL: as in HPI GENITOURINARY: negative OBJECTIVE DATA Vitals: BP (!) 126/93 (BP Location: Left arm, Patient Position: Lying) Pulse 84 Temp 36.7 ??C (98.1 ??F) (Oral) Resp 26 Ht 1.651 m (5' 5 ) Wt 77.1 kg (170 lb) SpO2 97% BMI 28.29 kg/m?? GEN: Alert and oriented x3, NAD HEENT: Atraumatic, normocephalic CV: Regular rate and rhythm PULM: Breathing comfortably ABD: Soft, non-tender, non-distended NEURO: Moves all 4 extremities spontaneously LABS AND IMAGING CBC: Results from last 7 days Lab Units 06/29/25 0545 06/29/25 0033 06/28/25 1839 06/26/25 1445 WBC AUTO 10*3/uL 4.90 -- 5.72 5.25 RBC AUTO 10*6/uL 3.01* -- 3.24* 3.28* HEMOGLOBIN g/dL 8.9* 7.6* 9.7* 10.0* HEMATOCRIT % 28.6* 24.3* 30.8* 31.6* MCV fL 95.0 -- 95.1 96.3 RDW % 15.3* -- 15.1* 15.4* PLATELETS AUTO 10*3/uL 146* -- 164 179 PT/INR Results from last 7 days Lab Units 06/26/25 1445 06/25/25 1529 PROTIME Seconds 14.4 15.5* INR 1.12* 1.22* BMP: Results from last 7 days Lab Units 06/29/25 0545 06/28/25 1839 06/26/25 1445 SODIUM mmol/L 137 135* 136 POTASSIUM mmol/L 5.1 5.1 5.2* CHLORIDE mmol/L 111* 108* 109* BUN mg/dL 23 27* 30* CREATININE mg/dL 1.63* 1.88* 2.03* EGFR mL/min/1.73m*2 44.5* 37.5* 34.2* GLUCOSE mg/dL 80 73 84 LFTs: Results from last 7 days Lab Units 06/29/25 0545 06/28/25 1839 06/26/25 1445 BILIRUBIN TOTAL mg/dL 1.1* 0.9 0.7 ALK PHOS U/L 187* 247* 220* AST U/L 49* 75* 59* ALT U/L 45 62* 46 ALBUMIN g/dL 3.5 4.2 4.1 TOTAL PROTEIN g/dL 5.9* 7.3 7.1 B12/Folate/Iron studies: No results found for: [id number] , FOLATE , IRON , TIBC , UIBC , IRONSAT , FERRITIN Viral Hepatitis No results found for: HEPAIGM , HAV , HEPBSAG , HEPBSAB , HEPBEAB , HEPBIGM , HEPBCAB , HEPBCOREAB , HBVNAT , HCVSCR , HEPCAB , HCVNAT , HCVPCR , HCVTMA Liver workup No results found for: MILENA , SMOOTHMUSCAB , CERULOPLSM , [id number] , TTGA , IGA , TSH , FREET4 , AFP Pancreatitis Lab Results Component Value Date CALCIUM 8.6 06/29/2025 IMAGING: ASSESSMENT AND PLAN You Garcia is a 70 y.o. male with past medical history of CAD s/p CABG, COPD, hyperlipidemia, essential hypertension, CKD stage IV, heart failure with mildly reduced ejection fraction and movement disorder, presented from home with chief complaint of bloody bowel movements. GI consulted for GI bleed. Assessment Hematochezia Patient reports 1 episode of bright red blood per rectum on 06/28 and morning Reports passing small amounts of clots CTA abdomen and pelvis 06/28 showed possible bleeding diverticula within the sigmoid colon with evidence of evolving intraluminal blood products. Acute blood loss anemia Patient presented with hemoglobin of 9.7, baseline around 9-10 Hemoglobin dropped to 7.6 on repeat check, 1 PRBC unit transfused, repeat hemoglobin 8.9. Recent right femoral endarterectomy with femoropopliteal bypass 06/07/2025 Severe triple-vessel coronary artery disease, 2 out of 3 bypass grafts patent on recent cardiac cath 05/11/2025 Patient is on medical therapy for CAD including aspirin, Plavix, statin Chronic heart failure with reduced ejection fraction Peripheral arterial disease Patient remains on triple therapy with aspirin, Plavix, Xarelto COPD Dyslipidemia, on statin CKD stage IV Plan Continue to monitor for overt GI bleeding Monitor hemoglobin, transfuse as clinically indicated Continue aspirin and Plavix as per vascular surgery recommendation. Hold Xarelto if okay with primary team and vascular surgery in the setting of GI bleeding Keep patient on clear liquid diet. Start patient on bowel prep Plan for colonoscopy 06/30 GI will continue to follow. This consult will be discussed with attending physician. If you have any questions please feel freeto contact the GI Service. Thank you for allowing us to participate in the care of You Garcia. Gastroenterology 6 am to 4 pm weekdays in house: [phone] 4 pm to 6 am or weekends: Please contact the body press operator to page the fellow institutional nutrition consultant [1] Past Medical History: Diagnosis Date Anxiety Atherosclerosis of arteries of extremities Cancer (CMS/HCC) LUNG Chronic kidney disease, stage 4 (severe) (CMS/HCC) Coronary artery disease Depression Dyspnea on exertion Emphysema lung (CMS/HCC) Frequent falls GERD (gastroesophageal reflux disease) Hyperlipidemia Hypertension Intermittent claudication MCI (mild cognitive impairment) Migraine Mitral regurgitation PAD (peripheral artery disease) Peripheral arterial occlusive disease Pulmonary hyperinflation [2] Past Surgical History: Procedure Laterality Date CARDIAC CATHETERIZATION CATARACT EXTRACTION COLONOSCOPY CORONARY ARTERY BYPASS GRAFT FEMORAL BYPASS Right LUNG BIOPSY LUNG REMOVAL, PARTIAL [3] Family History Problem Relation Name Age of Onset Diabetes Mother Elizabeth [4] Social History Tobacco Use Smoking status: Former Types: Cigarettes Smokeless tobacco: Current Types: Chew Vaping Use Vaping status: Never Used Substance Use Topics Alcohol use: Not Currently Drug use: Never [5] No Known Allergies Cosigned by Kortney Gandhi MD at 06/29/2025 3:00 PM EST * Kortney Gandhi MD - 06/30/2025 1:20 PM EST H&P reviewed. The patient was examined and there are no changes to the H&P. Source Note - Maria Eugenia Dodd MD - 06/29/2025 7:10 AM EST Initial Gastroenterology/Hepatology Consultation Note IDENTIFYING DATA PATIENT: You Garcia ADMIT DATE: 06/28/2025 TIME OF EVALUATION: 06/29/2025 7:10 AM Reason for Consult: GI bleed GI bleed Admitting Physician: French Newsome MD HISTORY OF PRESENT ILLNESS You Garcia is a 70 y.o. male with past medical history of CAD s/p CABG, COPD, hyperlipidemia, essential hypertension, CKD stage IV, heart failure with mildly reduced ejection fraction and movement disorder, presented from home with chief complaint of bloody bowel movement. Patient reported that he had 1 episode of bright red blood per rectum on the morning of 06/28. Thiswas reported as bright red blood, patient also had a small bowel movement with it, small amount of clots noted. Patient denies any previous similar episodes. Denies NSAID use, denies abdominal pain, f ever/chills, weight loss. On presentation, patient was hemodynamically stable. Significant labs on presentation included hemoglobin 9.7, sodium 135, bicarb 19, creatinine 1.88, AST 75, ALT 62, total bilirubin 0.9, alk phos 247. Hemoglobin then dropped to 7.6, 1 PRBC unit transfused repeat hemoglobin was 8.9. CTA with contrast showed possible bleeding diverticula within the sigmoid colon with evidence of evolving intraluminal blood products on the arterial and delayed phases. Ground glass opacities of right lung base, multiple indeterminate right renal lesions. GI consulted for GI bleed. GI HISTORY SUMMARY TABLE Last EGD Last colonoscopy Last colonoscopy in 2021, no records available. Patient unsure of results. Primary GI physician PAST MEDICAL, SURGICAL, FAMILY, and SOCIAL HISTORY Past Medical History: Medical History[1] Past Surgical History: Surgical History[2] Family History: Family History[3] Social History: Social History[4] Allergies: Allergies[5] MEDICATIONS Home Medications: Prior to Admission medications Medication Sig Start Date End Date Taking? Authorizing Provider acetaminophen (Tylenol Extra Strength) 500 mg tablet Take 2 tablets (1,000 mg) by mouth every 6 (six) hours if needed for moderate pain (4-7 pain score). 06/09/25 08/08/25 Lisa Levy MD albuterol 90 mcg/actuation inhaler INHALE 1 PUFF BY MOUTH EVERY 4 HOURS NEEDED 12/02/21 Historical Provider, amLODIPine (Norvasc) 5 mg tablet Take 1 tablet by mouth two times daily. Historical Provider, aspirin 81 mg EC tablet Take 1 tablet by mouth in the morning. Historical Provider, atorvastatin (Lipitor) 80 mg tablet Take 80 mg by mouth at bedtime. 10/08/24 06/25/25 Historical Provider, buPROPion XL (Wellbutrin XL) 300 mg 24 hr tablet Use 1 tablet in the mouth or throat in the morning. Historical Provider, busPIRone (Buspar) 15 mg tablet Take 1 tablet by mouth in the morning and at bedtime. Historical Provider, clopidogrel (Plavix) 75 mg tablet Take 75 mg by mouth in the morning. Historical Provider, famotidine (Pepcid) 20 mg tablet Take 20 mg by mouth twice a day. 10/08/24 06/25/25 Historical Provider, fenofibrate micronized (Antara) 43 mg capsule Take 1 capsule by mouth in the morning and at bedtime. Historical Provider, visqouwtwrp-ntmxamrlk-iwxpctma (Trelegy Ellipta) 100-62.5-25 mcg blister with device Inhale 1 puff in the morning. 02/18/24 Historical Provider, metoprolol tartrate (Lopressor) 50 mg tablet Take 50 mg by mouth two times daily. Historical Provider, nitroglycerin (Nitrostat) 0.4 mg SL tablet 06/17/24 Historical Provider, OLANZapine (ZyPREXA) 5 mg tablet Take 5 mg by mouth at bedtime. Historical Provider, rivaroxaban (Xarelto) 2.5 mg tablet Take 1 tablet (2.5 mg) by mouth two times daily for 197 doses. 06/09/25 09/16/25 Lisa Levy MD sertraline (Zoloft) 100 mg tablet Take 2 tablets by mouth in the morning. Historical Provider, sodium zirconium cyclosilicate (Lokelma) 10 gram packet Take 10 g by mouth 3 (three) times a week. 05/26/25 Batsheva Beckwith MD sulfamethoxazole-trimethoprim (Bactrim DS) 800-160 mg tablet Take 1 tablet by mouth every 12 (twelve) hours for 7 days. 06/19/25 06/26/25 Demetris Swain MD traZODone (Desyrel) 100 mg tablet Take 1 tablet by mouth at bedtime. Historical Provider, Current Medications: PRNs: acetaminophen, 650 mg, q6h PRN melatonin, 5 mg, Nightly PRN ondansetron ODT, 4 mg, q8h PRN Or ondansetron, 4 mg, q6h PRN REVIEW OF SYSTEMS See HPI, otherwise ROS negative as below CONSTITUTIONAL: negative HEENT: negative RESPIRATORY: negative CARDIOVASCULAR: negative GASTROINTESTINAL: as in HPI GENITOURINARY: negative OBJECTIVE DATA Vitals: BP (!) 126/93 (BP Location: Left arm, Patient Position: Lying) Pulse 84 Temp 36.7 ??C (98.1 ??F) (Oral) Resp 26 Ht 1.651 m (5' 5 ) Wt 77.1 kg (170 lb) SpO2 97% BMI 28.29 kg/m?? GEN: Alert and oriented x3, NAD HEENT: Atraumatic, normocephalic CV: Regular rate and rhythm PULM: Breathing comfortably ABD: Soft, non-tender, non-distended NEURO: Moves all 4 extremities spontaneously LABS AND IMAGING CBC: Results from last 7 days Lab Units 06/29/25 0545 06/29/25 0033 06/28/25 1839 06/26/25 1445 WBC AUTO 10*3/uL 4.90 -- 5.72 5.25 RBC AUTO 10*6/uL 3.01* -- 3.24* 3.28* HEMOGLOBIN g/dL 8.9* 7.6* 9.7* 10.0* HEMATOCRIT % 28.6* 24.3* 30.8* 31.6* MCV fL 95.0 -- 95.1 96.3 RDW % 15.3* -- 15.1* 15.4* PLATELETS AUTO 10*3/uL 146* -- 164 179 PT/INR Results from last 7 days Lab Units 06/26/25 1445 06/25/25 1529 PROTIME Seconds 14.4 15.5* INR 1.12* 1.22* BMP: Results from last 7 days Lab Units 06/29/25 0545 06/28/25 1839 06/26/25 1445 SODIUM mmol/L 137 135* 136 POTASSIUM mmol/L 5.1 5.1 5.2* CHLORIDE mmol/L 111* 108* 109* BUN mg/dL 23 27* 30* CREATININE mg/dL 1.63* 1.88* 2.03* EGFR mL/min/1.73m*2 44.5* 37.5* 34.2* GLUCOSE mg/dL 80 73 84 LFTs: Results from last 7 days Lab Units 06/29/25 0545 06/28/25 1839 06/26/25 1445 BILIRUBIN TOTAL mg/dL 1.1* 0.9 0.7 ALK PHOS U/L 187* 247* 220* AST U/L 49* 75* 59* ALT U/L 45 62* 46 ALBUMIN g/dL 3.5 4.2 4.1 TOTAL PROTEIN g/dL 5.9* 7.3 7.1 B12/Folate/Iron studies: No results found for: [id number] , FOLATE , IRON , TIBC , UIBC , IRONSAT , FERRITIN Viral Hepatitis No results found for: HEPAIGM , HAV , HEPBSAG , HEPBSAB , HEPBEAB , HEPBIGM , HEPBCAB , HEPBCOREAB , HBVNAT , HCVSCR , HEPCAB , HCVNAT , HCVPCR , HCVTMA Liver workup No results found for: MILENA , SMOOTHMUSCAB , CERULOPLSM , [id number] , TTGA , IGA , TSH , FREET4 , AFP Pancreatitis Lab Results Component Value Date CALCIUM 8.6 06/29/2025 IMAGING: ASSESSMENT AND PLAN You Garcia is a 70 y.o. male with past medical history of CAD s/p CABG, COPD, hyperlipidemia, essential hypertension, CKD stage IV, heart failure with mildly reduced ejection fraction and movement disorder, presented from home with chief complaint of bloody bowel movements. GI consulted for GI bleed. Assessment Hematochezia Patient reports 1 episode of bright red blood per rectum on 06/28 and morning Reports passing small amounts of clots CTA abdomen and pelvis 06/28 showed possible bleeding diverticula within the sigmoid colon with evidence of evolving intraluminal blood products. Acute blood loss anemia Patient presented with hemoglobin of 9.7, baseline around 9-10 Hemoglobin dropped to 7.6 on repeat check, 1 PRBC unit transfused, repeat hemoglobin 8.9. Recent right femoral endarterectomy with femoropopliteal bypass 06/07/2025 Severe triple-vessel coronary artery disease, 2 out of 3 bypass grafts patent on recent cardiac cath 05/11/2025 Patient is on medical therapy for CAD including aspirin, Plavix, statin Chronic heart failure with reduced ejection fraction Peripheral arterial disease Patient remains on triple therapy with aspirin, Plavix, Xarelto COPD Dyslipidemia, on statin CKD stage IV Plan Continue to monitor for overt GI bleeding Monitor hemoglobin, transfuse as clinically indicated Continue aspirin and Plavix as per vascular surgery recommendation. Hold Xarelto if okay with primary team and vascular surgery in the setting of GI bleeding Keep patient on clear liquid diet. Start patient on bowel prep Plan for colonoscopy 06/30 GI will continue to follow. This consult will be discussed with attending physician. If you have any questions please feel freeto contact the GI Service. Thank you for allowing us to participate in the care of You Garcia. Gastroenterology 6 am to 4 pm weekdays in house: [phone] 4 pm to 6 am or weekends: Please contact the body press operator to page the fellow institutional nutrition consultant [1] Past Medical History: Diagnosis Date Anxiety Atherosclerosis of arteries of extremities Cancer (CMS/HCC) LUNG Chronic kidney disease, stage 4 (severe) (CMS/HCC) Coronary artery disease Depression Dyspnea on exertion Emphysema lung (CMS/HCC) Frequent falls GERD (gastroesophageal reflux disease) Hyperlipidemia Hypertension Intermittent claudication MCI (mild cognitive impairment) Migraine Mitral regurgitation PAD (peripheral artery disease) Peripheral arterial occlusive disease Pulmonary hyperinflation [2] Past Surgical History: Procedure Laterality Date CARDIAC CATHETERIZATION CATARACT EXTRACTION COLONOSCOPY CORONARY ARTERY BYPASS GRAFT FEMORAL BYPASS Right LUNG BIOPSY LUNG REMOVAL, PARTIAL [3] Family History Problem Relation Name Age of Onset Diabetes Mother Elizabeth [4] Social History Tobacco Use Smoking status: Former Types: Cigarettes Smokeless tobacco: Current Types: Chew Vaping Use Vaping status: Never Used Substance Use Topics Alcohol use: Not Currently Drug use: Never [5] No Known Allergies Cosigned by Kortney Gandhi MD at 06/29/2025 3:00 PM EST * Obi Doyle MD - 06/29/2025 12:36 AM EST Images from the original note were not included. Hospital Medicine History and Physical 06/29/2025 12:36 AM THE HOSPITALIST TEAM PREFERS TO USE [employer] FOR NON-URGENT COMMUNICATION 7AM- 7PM. IF I DO NOT RESPOND WITHIN 20 MINUTES OR URGENT MATTERS, PLEASE CALL THROUGH THE [facility]. FROM 7PM-7AM, PLEASE PAGE [phone](COVR). Chief Complaint Chief Complaint Patient presents with Rectal Bleeding STATES HE STARTED TO PASS BRIGHT RED BLOOD AND THE CLOTS WERE DARKER. History of Present Illness You Garcia is an 70 y.o. male who came from home with bloody bowel movement prior to coming to the hospital. He has a past medical history of peripheral arterial disease with recent right femoralto popliteal bypass on June 07 and was started on Xarelto. Additional medical history includes CAD status post CABG, COPD, hyperlipidemia, hypertension, CKD stage IV, heart failure with mild reduced ejection fraction, and movement disorder. His vitals have been stable in the ED. He denies abdominal pain, nausea, vomiting. Initial hemoglobin was 9.7 which is around his baseline. Hemoccult was positive. A follow-up hemoglobin was 7.6. CT of the abdomen pelvis with IV contrast showed possible bleeding diverticula within the sigmoid colon, ground glass opacities in the right lung base , multiple right renal lesions, and fluid collection overlying the proximal portion of the bypass graft in the right groin measuring approximately 3.4 x 2.8 cm . Review of System and Physical Exam Temp: [36.1 ??C (97 ??F)] 36.1 ??C (97 ??F) Heart Rate: [60-79] 65 Resp: [15-25] 20 BP: (111-137)/(44-99) 137/58 Physical Exam Vitals reviewed. Constitutional: General: He is not in acute distress. Appearance: Normal appearance. He is normal weight. He is not ill-appearing, toxic-appearing or diaphoretic. HENT: Head: Normocephalic and atraumatic. Right Ear: External ear normal. Left Ear: [...] sounds are normal. Palpations: Abdomen is soft. Tenderness: There is no abdominal tenderness. There is no guarding or rebound. Hernia: No hernia is present. Musculoskeletal: Cervical back: Normal range of motion. Right lower leg: No edema. Left lower leg: No edema. Skin: General: Skin is warm and dry. Capillary Refill: Capillary refill takes less than 2 seconds. Coloration: Skin is pale. Neurological: General: No focal deficit present. Mental Status: He is alert and oriented to person, place, and time. Mental status is at baseline. Psychiatric: Mood and Affect: Mood normal. Behavior: Behavior normal. Review of Systems Constitutional: Negative. HENT: Negative. Eyes: Negative. Respiratory: Negative. Cardiovascular: Negative. Gastrointestinal: Positive for blood in stool. Negative for abdominal distention, abdominal pain, anal bleeding, constipation, diarrhea, nausea, rectal pain and vomiting. Endocrine: Negative. Genitourinary: Negative. Musculoskeletal: Negative. Skin: Negative. Allergic/Immunologic: Negative. Neurological: Negative. Hematological: Negative. Psychiatric/Behavioral: Negative. All other systems reviewed and are negative. Assessment and Plan Assessment & Plan Rectal bleeding Likely is having an active diverticular bleed Currently is hemodynamically stable Will transfuse 2 units of packed RBCs and monitor hemoglobin closely Keep n.p.o. GI consult Holding Xarelto Coronary artery disease involving [place] coronary artery of [place] heart without angina pectoris S/P CABG (coronary artery bypass graft) No active chest pain or shortness of breath, has nitro as needed Previous home medication list shows he is on aspirin, Plavix, metoprolol, atorvastatin and fenofibrate Peripheral vascular disease S/P femoropopliteal bypass surgery was on dual antiplatelet therapy plus Xarelto Consult vascular surgery for input regarding anticoagulation Chronic heart failure with mildly reduced ejection fraction (HFmrEF) ([facility]) EF 40-45% currently is euvolemic Chronic kidney disease, stage 4 (severe) [place] [place] renal function at baseline Chronic obstructive pulmonary disease, unspecified ([facility] [place] respiratory status is stable, albuterol as needed and continue Trelegy Ellipta Mixed hyperlipidemia continue atorvastatin and fenofibrate Hypertensive disorder continue amlodipine, metoprolol Elevated LFTs monitor clinically Renal lesion Outpatient MRI VTE Prophylaxis: Contraindicated due to GI bleed ----- Focus of this inpatient stay will remain on problems that need acute care setting for care. We will review available studies and will order additional labs, imaging and other studies as appropriate. As needed medicines are ordered as appropriate. VTE Prophylaxis will be ordered as appropriate. Please see above for management plan for individual hospital problems. Home medications are reviewed and will be continued as appropriate. Patient will be continued to be followed during this hospital stay by a member of [facility]. Past Medical History Medical History[1] Past Surgical History Surgical History[2] Social History Social History Socioeconomic History Marital status: Legally Spouse name: Not on file Number of children: Not on file Years of education: Not on file Highest education level: Not on file Occupational History Not on file Tobacco Use Smoking status: Former Types: Cigarettes Smokeless tobacco: Current Types: Chew Vaping Use Vaping status: Never Used Substance and Sexual Activity Alcohol use: Not Currently Drug use: Never Sexual activity: Defer Other Topics Concern Not on file Social History Narrative Not on file Social Drivers of Health Financial Resource Strain: Low Risk (06/16/2025) Overall Financial Resource Strain (CARDIA) Difficulty of Paying Living Expenses: Not very hard Food Insecurity: No Food Insecurity (06/16/2025) Hunger Vital Sign Worried About Running Out of Food in the Last Year: Never true Ran Out of Food in the Last Year: Never true Transportation Needs: No Transportation Needs (06/16/2025) Transportation Lack of Transportation (Medical): No Lack of Transportation (Non-Medical): No Physical Activity: Inactive (02/28/2025) Received from [facility] Exercise Vital Sign On average, how many days per week do you engage in moderate to strenuous exercise (like a brisk walk)?: 0 days On average, how many minutes do you engage in exercise at this level?: 0 min Stress: No Stress Concern Present (06/15/2025) [employer] - Occupational Stress Questionnaire Feeling of Stress: Only a little Social Connections: Socially Isolated (06/15/2025) Social Connection and Isolation Panel Frequency of Communication with Friends and Family: More than three times a week Frequency of Social Gatherings with Friends and Family: More than three times a week Attends Yarsani Services: Never Active Member of Clubs or Organizations: No Attends Club or Organization Meetings: Never Marital Status: Intimate Partner Violence: Unknown (06/16/2025) Humiliation, Afraid, Rape, and Kick questionnaire Fear of Current or Ex-Partner: No Emotionally Abused: Not on file Physically Abused: Not on file Sexually Abused: Not on file Housing Stability: Low Risk (06/16/2025) Housing Stability Vital Sign Unable to Pay for Housing in the Last Year: No Number of Times Moved in the Last Year: 0 Homeless in the Last Year: No Family History family history includes Diabetes in his mother. Allergies has no known allergies. Prior to Admission Medications Prescriptions Prior to Admission[3] Labs Labs Reviewed COMPREHENSIVE METABOLIC PANEL - Abnormal Result Value Sodium 135 (*) Potassium 5.1 Chloride 108 (*) CO2 19 (*) Anion Gap 13 BUN 27 (*) Creatinine 1.88 (*) BUN/Creatinine Ratio 14.4 Glucose 73 Calcium 9.2 AST 75 (*) ALT (SGPT) 62 (*) Alkaline Phosphatase 247 (*) Total Protein 7.3 Albumin 4.2 Total Bilirubin 0.9 eGFR 37.5 (*) CBC WITH AUTO DIFFERENTIAL - Abnormal Auto WBC 5.72 RBC 3.24 (*) Hemoglobin 9.7 (*) Hematocrit 30.8 (*) MCV 95.1 MCH 29.9 MCHC 31.5 (*) RDW 15.1 (*) Neutrophils % 76.5 (*) Lymphocytes % 12.9 (*) Monocytes % 6.3 Eosinophils % 3.3 Basophils % 0.7 Neutrophils Absolute 4.37 Lymphocytes Absolute 0.74 (*) Monocytes Absolute 0.36 Eosinophils Absolute 0.19 Basophils Absolute 0.04 Platelets 164 nRBC % 0.0 Immature Granulocytes % 0.3 Immature Granulocytes Absolute 0.02 POCT OCCULT BLOOD STOOL - Abnormal Fecal Occult Blood Positive QC Pass/Fail Passed QC LOT # [id number] QC Expiration Date 04/07 CBC AND DIFFERENTIAL Narrative: The following orders were created for panel order CBC and differential. Procedure Abnormality Status --------- ------ CBC auto differential[[id number]] Abnormal Final result Please view results for these tests on the individual orders. HEMOGLOBIN AND HEMATOCRIT, BLOOD TYPE AND SCREEN HEMOGLOBIN Imaging CTA Abdomen Pelvis W IV Contrast Narrative: CT ANGIOGRAM ABDOMEN/PELVIS CLINICAL INFORMATION: ] Bleeding per rectum COMPARISON: 06/26/2025 TECHNIQUE: Multidetector CT Angiogram performed with IV contrast through the abdomen and pelvis including 3-D Maximum intensity projection reconstructions constructed under concurrent physician supervision on a independent workstation. 3 D images obtained to improve visualization of vascular detail. Automated exposure control was utilized. All CT scans at this facility use dose modulation, iterative reconstruction, and/or weight based dosing when appropriate to reduce radiation dose to as low as reasonably achievable. FINDINGS: VASCULAR FINDINGS: Aorta: Patent without significant stenosis. Nonaneurysmal.Severe atherosclerotic disease. Celiac artery: Patent. Atherosclerotic disease causing [id number] ostial stenosis. Superior mesenteric artery: Patent. Atherosclerotic disease causing mild proximal stenosis. Renal arteries: Patent. Atherosclerotic disease causing moderate stenosis. Inferior mesenteric artery: Patent. Right iliac arterial system: Patent. Atherosclerotic disease. Moderate stenosis of the internal iliac. Left iliac arterial system: Patent. Moderate atherosclerotic disease. Moderate stenosis of the internal iliac. NONVASCULAR FINDINGS: LOWER CHEST: Bibasilar atelectasis and scarring. Groundglass opacities of the right lung base could be infectious/inflammatory or atelectasis. Cardiomegaly. Coronary artery calcifications. Prominent bilateral hilar lymph nodes. No pleural or pericardial effusion. LIVER AND BILIARY: Noncirrhotic liver morphology. No suspicious hepatic lesion. Gallbladder is unremarkable. No biliary ductal dilatation. The pancreas and adrenal glands demonstrate no acute abnormality. Enlarged spleen measures 14.8 cm craniocaudal. KIDNEYS, URETERS, AND BLADDER: Symmetric renal enhancement. Redemonstrated indeterminate 2.3 cm right renal lesion does not meet criteria for simple cyst. There are additional 1.0 cm right renal lesions that are also technically indeterminate. Further characterization with renal protocol MRI recommended. No collecting system dilatation. Urinary bladder is unremarkable. GI TRACT AND PERITONEUM: No significant free fluid. No free air. Colonic diverticulosis without diverticulitis. Appendix is unremarkable. Evolving intraluminal blood products within the sigmoid colon, likely related to diverticular disease. LYMPH NODES: No lymphadenopathy. REPRODUCTIVE ORGANS: Unremarkable MUSCULOSKELETAL/soft tissues: Similar-appearing fluid collection overlying the proximal portion of the bypass graft in the right groin measuring approximately 3.4 x 2.8 cm. Multilevel degenerative changes spine. Impression: * Possible bleeding diverticula within the sigmoid colon with evidence of evolving intraluminal blood products on the arterial and delayed phases. * Groundglass opacities of the right lung base could be infectious/inflammatory or atelectasis. Correlate clinically. * Multiple indeterminate right renal lesions. Further characterization with renal mass protocol MRI recommended. * Similar-appearing fluid collection overlying the proximal portion of the bypass graft in the right groin measuring approximately 3.4 x 2.8 cm Approved by:Michael Lee06/28/2025 10:03 PM. I, Bryson Grant,have reviewed the image(s) and agree with the findings in this report. Electronically signed: Bryson Grant. Signed Obi Doyle MD [facility] 06/29/2025 12:36 AM [1] Past Medical History: Diagnosis Date Anxiety Atherosclerosis of arteries of extremities Cancer (CMS/HCC) LUNG Chronic kidney disease, stage 4 (severe) (CMS/HCC) Coronary artery disease Depression Dyspnea on exertion Emphysema lung (CMS/HCC) Frequent falls GERD (gastroesophageal reflux disease) Hyperlipidemia Hypertension Intermittent claudication MCI (mild cognitive impairment) Migraine Mitral regurgitation PAD (peripheral artery disease) Peripheral arterial occlusive disease Pulmonary hyperinflation [2] Past Surgical History: Procedure Laterality Date CARDIAC CATHETERIZATION CATARACT EXTRACTION COLONOSCOPY CORONARY ARTERY BYPASS GRAFT FEMORAL BYPASS Right LUNG BIOPSY LUNG REMOVAL, PARTIAL [3] (Not in a hospital admission) documented in this encounter Consult Notes * Paradise Freeman MD - 06/29/2025 7:44 AM ESTAssociated Order(s): Inpatient consult to Vascular Surgery Images from the original note were not included. [facility] Vascular Surgery CONSULT Inpatient consult to Vascular Surgery Consult performed by: Paradise Freeman MD Consult ordered by: Obi Doyle MD History of Present Illness: You Garcia is a 70 y.o. male with extensive medical history who recently underwent right femoral to above knee popliteal bypass with graft on 06/07/25 for chronic limb ischemia and claudication. He presented a few days ago after fall and with wound dehiscence. Patient re-presented to the ED overnight due to rectal bleeding. Patient currently on Xarelto and Plavix. CTA demonstrated possible bleeding sigmoid diverticula. Hemodynamically stable and received 2 units pRBC. Most recent hemoglobin8.9. GI consulted for possible colonoscopy. Patient has stable left calf claudication. Review of Systems Constitutional: Negative. HENT: Negative. Respiratory: Negative. Cardiovascular: Negative. Gastrointestinal: Positive for blood in stool. Musculoskeletal: Negative. Skin: Positive for wound. Neurological: Negative. Psychiatric/Behavioral: Negative. Medical History[1] Surgical History[2] Allergies[3] Current Medications[4] Social History Socioeconomic History Marital status: Legally Spouse name: Not on file Number of children: Not on file Years of education: Not on file Highest education level: Not on file Occupational History Not on file Tobacco Use Smoking status: Former Types: Cigarettes Smokeless tobacco: Current Types: Chew Vaping Use Vaping status: Never Used Substance and Sexual Activity Alcohol use: Not Currently Drug use: Never Sexual activity: Defer Other Topics Concern Not on file Social History Narrative Not on file Social Drivers of Health Financial Resource Strain: Low Risk (06/16/2025) Overall Financial Resource Strain (CARDIA) Difficulty of Paying Living Expenses: Not very hard Food Insecurity: No Food Insecurity (06/16/2025) Hunger Vital Sign Worried About Running Out of Food in the Last Year: Never true Ran Out of Food in the Last Year: Never true Transportation Needs: No Transportation Needs (06/16/2025) Transportation Lack of Transportation (Medical): No Lack of Transportation (Non-Medical): No Physical Activity: Inactive (02/28/2025) Received from [facility] Exercise Vital Sign On average, how many days per week do you engage in moderate to strenuous exercise (like a brisk walk)?: 0 days On average, how many minutes do you engage in exercise at this level?: 0 min Stress: No Stress Concern Present (06/15/2025) [employer] - Occupational Stress Questionnaire Feeling of Stress: Only a little Social Connections: Socially Isolated (06/15/2025) Social Connection and Isolation Panel Frequency of Communication with Friends and Family: More than three times a week Frequency of Social Gatherings with Friends and Family: More than three times a week Attends Yarsani Services: Never Active Member of Clubs or Organizations: No Attends Club or Organization Meetings: Never Marital Status: Intimate Partner Violence: Unknown (06/16/2025) Humiliation, Afraid, Rape, and Kick questionnaire Fear of Current or Ex-Partner: No Emotionally Abused: Not on file Physically Abused: Not on file Sexually Abused: Not on file Housing Stability: Low Risk (06/16/2025) Housing Stability Vital Sign Unable to Pay for Housing in the Last Year: No Number of Times Moved in the Last Year: 0 Homeless in the Last Year: No Family History[5] Physical Exam: Vital Signs: Blood pressure (!) 126/93, pulse 84, temperature 36.7 ??C (98.1 ??F), temperature source Oral, resp. rate 26, height 1.651 m (5' 5 ), weight 77.1 kg (170 lb), SpO2 97%. Admission Weight: Weight: 77.1 kg (170 lb) Physical Exam Constitutional: General: He is not in acute distress. HENT: Head: Normocephalic and atraumatic. Eyes: General: No scleral icterus. Cardiovascular: Rate and Rhythm: Normal rate. Pulmonary: Effort: Pulmonary effort is normal. No respiratory distress. Abdominal: General: There is no distension. Palpations: Abdomen is soft. Tenderness: There is no abdominal tenderness. Musculoskeletal: Cervical back: Neck supple. Right lower leg: No edema. Left lower leg: No edema. Skin: General: Skin is warm and dry. Neurological: Mental Status: He is alert. Mental status is at baseline. Psychiatric: Thought Content: Thought content normal. Labs: Lab Results Component Value Date WBC 4.90 06/29/2025 HGB 8.9 (L) 06/29/2025 HCT 28.6 (L) 06/29/2025 MCV 95.0 06/29/2025 PLT 146 (L) 06/29/2025 Lab Results Component Value Date GLU 100 10/08/2019 CALCIUM 8.6 06/29/2025 NA 137 06/29/2025 K 5.1 06/29/2025 CO2 21 06/29/2025 CL 111 (H) 06/29/2025 BUN 23 06/29/2025 CREATININE 1.63 (H) 06/29/2025 No results found for: AMYLASE No results found for: LIPASE Lab Results Component Value Date ALT 45 06/29/2025 AST 49 (H) 06/29/2025 ALKPHOS 187 (H) 06/29/2025 Lab Results Component Value Date INR 1.12 (H) 06/26/2025 INR 1.22 (H) 06/25/2025 INR 1.01 05/24/2025 Imaging: CTA Abdomen Pelvis W IV Contrast Narrative: CT ANGIOGRAM ABDOMEN/PELVIS CLINICAL INFORMATION: ] Bleeding per rectum COMPARISON: 06/26/2025 TECHNIQUE: Multidetector CT Angiogram performed with IV contrast through the abdomen and pelvis including 3-D Maximum intensity projection reconstructions constructed under concurrent physician supervision on a independent workstation. 3 D images obtained to improve visualization of vascular detail. Automated exposure control was utilized. All CT scans at this facility use dose modulation, iterative reconstruction, and/or weight based dosing when appropriate to reduce radiation dose to as low as reasonably achievable. FINDINGS: VASCULAR FINDINGS: Aorta: Patent without significant stenosis. Nonaneurysmal.Severe atherosclerotic disease. Celiac artery: Patent. Atherosclerotic disease causing [id number] ostial stenosis. Superior mesenteric artery: Patent. Atherosclerotic disease causing mild proximal stenosis. Renal arteries: Patent. Atherosclerotic disease causing moderate stenosis. Inferior mesenteric artery: Patent. Right iliac arterial system: Patent. Atherosclerotic disease. Moderate stenosis of the internal iliac. Left iliac arterial system: Patent. Moderate atherosclerotic disease. Moderate stenosis of the internal iliac. NONVASCULAR FINDINGS: LOWER CHEST: Bibasilar atelectasis and scarring. Groundglass opacities of the right lung base could be infectious/inflammatory or atelectasis. Cardiomegaly. Coronary artery calcifications. Prominent bilateral hilar lymph nodes. No pleural or pericardial effusion. LIVER AND BILIARY: Noncirrhotic liver morphology. No suspicious hepatic lesion. Gallbladder is unremarkable. No biliary ductal dilatation. The pancreas and adrenal glands demonstrate no acute abnormality. Enlarged spleen measures 14.8 cm craniocaudal. KIDNEYS, URETERS, AND BLADDER: Symmetric renal enhancement. Redemonstrated indeterminate 2.3 cm right renal lesion does not meet criteria for simple cyst. There are additional 1.0 cm right renal lesions that are also technically indeterminate. Further characterization with renal protocol MRI recommended. No collecting system dilatation. Urinary bladder is unremarkable. GI TRACT AND PERITONEUM: No significant free fluid. No free air. Colonic diverticulosis without diverticulitis. Appendix is unremarkable. Evolving intraluminal blood products within the sigmoid colon, likely related to diverticular disease. LYMPH NODES: No lymphadenopathy. REPRODUCTIVE ORGANS: Unremarkable MUSCULOSKELETAL/soft tissues: Similar-appearing fluid collection overlying the proximal portion of the bypass graft in the right groin measuring approximately 3.4 x 2.8 cm. Multilevel degenerative changes spine. Impression: * Possible bleeding diverticula within the sigmoid colon with evidence of evolving intraluminal blood products on the arterial and delayed phases. * Groundglass opacities of the right lung base could be infectious/inflammatory or atelectasis. Correlate clinically. * Multiple indeterminate right renal lesions. Further characterization with renal mass protocol MRI recommended. * Similar-appearing fluid collection overlying the proximal portion of the bypass graft in the right groin measuring approximately 3.4 x 2.8 cm Approved by:Michael Lee06/28/2025 10:03 PM. I, Bryson Grant,have reviewed the image(s) and agree with the findings in this report. Electronically signed: Bryson Grant. Assessment: You Garcia is a 70 y.o.male s/p right femoropopliteal bypass with graft currently on Xarelto and Plavix who presents with GI bleeding likely from sigmoid diverticula. Patient's case, imaging, and labs were reviewed by and discussed with Dr. Andre, and after thorough discussion, the plan for the patient is as follows: Plan: GI consulted for colonoscopy Okay to hold Xarelto, but continue Plavix as patient is high risk of graft occlusion. Discussed with GI. Monitor hemoglobin and transfuse prn Rest of care per primary Paradise Freeman MD General Surgery Resident, PGY-3 Vascular Surgery Service 06/29/25 [1] Past Medical History: Diagnosis Date Anxiety Atherosclerosis of arteries of extremities Cancer (CMS/HCC) LUNG Chronic kidney disease, stage 4 (severe) (CMS/HCC) Coronary artery disease Depression Dyspnea on exertion Emphysema lung (CMS/HCC) Frequent falls GERD (gastroesophageal reflux disease) Hyperlipidemia Hypertension Intermittent claudication MCI (mild cognitive impairment) Migraine Mitral regurgitation PAD (peripheral artery disease) Peripheral arterial occlusive disease Pulmonary hyperinflation [2] Past Surgical History: Procedure Laterality Date CARDIAC CATHETERIZATION CATARACT EXTRACTION COLONOSCOPY CORONARY ARTERY BYPASS GRAFT FEMORAL BYPASS Right LUNG BIOPSY LUNG REMOVAL, PARTIAL [3] No Known Allergies [4] Current Facility-Administered Medications: acetaminophen (Tylenol) tablet 650 mg, 650 mg, oral, q6h PRN, Obi Doyle MD melatonin tablet 5 mg, 5 mg, oral, Nightly PRN, Obi Doyle MD ondansetron ODT (Zofran-ODT) disintegrating tablet 4 mg, 4 mg, oral, q8h PRN OR ondansetron HCl(PF) (Zofran) injection 4 mg, 4 mg, intravenous, q6h PRN, Obi Doyle MD sodium chloride 0.9 % infusion, 20 mL/hr, intravenous, Continuous, Obi Doyle MD, Last Rate:20 mL/hr at 06/29/25 0501, 20 mL/hr at 06/29/25 0501 Current Outpatient Medications: acetaminophen (Tylenol Extra Strength) 500 mg tablet, Take 2 tablets (1,000 mg) by mouth every 6 (six) hours if needed for moderate pain (4-7 pain score)., Disp: 30 tablet, Rfl: 0 albuterol 90 mcg/actuation inhaler, INHALE 1 PUFF BY MOUTH EVERY 4 HOURS NEEDED, Disp: , Rfl: amLODIPine (Norvasc) 5 mg tablet, Take 1 tablet by mouth two times daily., Disp: , Rfl: aspirin 81 mg EC tablet, Take 1 tablet by mouth in the morning., Disp: , Rfl: atorvastatin (Lipitor) 80 mg tablet, Take 80 mg by mouth at bedtime., Disp: , Rfl: buPROPion XL (Wellbutrin XL) 300 mg 24 hr tablet, Use 1 tablet in the mouth or throat in the morning., Disp: , Rfl: busPIRone (Buspar) 15 mg tablet, Take 1 tablet by mouth in the morning and at bedtime., Disp: , Rfl: clopidogrel (Plavix) 75 mg tablet, Take 75 mg by mouth in the morning., Disp: , Rfl: famotidine (Pepcid) 20 mg tablet, Take 20 mg by mouth twice a day., Disp: , Rfl: fenofibrate micronized (Antara) 43 mg capsule, Take 1 capsule by mouth in the morning and at bedtime., Disp: , Rfl: nlgqjyguswn-hndhsacnb-beghjona (Trelegy Ellipta) 100-62.5-25 mcg blister with device, Inhale 1 puffin the morning., Disp: , Rfl: metoprolol tartrate (Lopressor) 50 mg tablet, Take 50 mg by mouth two times daily., Disp: , Rfl: nitroglycerin (Nitrostat) 0.4 mg SL tablet, , Disp: , Rfl: OLANZapine (ZyPREXA) 5 mg tablet, Take 5 mg by mouth at bedtime., Disp: , Rfl: rivaroxaban (Xarelto) 2.5 mg tablet, Take 1 tablet (2.5 mg) by mouth two times daily for 197 doses., Disp: 90 tablet, Rfl: 1 sertraline (Zoloft) 100 mg tablet, Take 2 tablets by mouth in the morning., Disp: , Rfl: sodium zirconium cyclosilicate (Lokelma) 10 gram packet, Take 10 g by mouth 3 (three) times a week., Disp: 120 g, Rfl: 3 traZODone (Desyrel) 100 mg tablet, Take 1 tablet by mouth at bedtime., Disp: , Rfl: [5] Family History Problem Relation Name Age of Onset Diabetes Mother Elizabeth Cosigned by Chris Andre MD at 06/29/2025 9:20 PM EST * Maria Eugenia Dodd MD - 06/29/2025 7:10 AM ESTAssociated Order(s): IP CONSULT TO GASTROENTEROLOGY Initial Gastroenterology/Hepatology Consultation Note IDENTIFYING DATA PATIENT: You Garcia ADMIT DATE: 06/28/2025 TIME OF EVALUATION: 06/29/2025 7:10 AM Reason for Consult: GI bleed GI bleed Admitting Physician: French Newsome MD HISTORY OF PRESENT ILLNESS You Garcia is a 70 y.o. male with past medical history of CAD s/p CABG, COPD, hyperlipidemia, essential hypertension, CKD stage IV, heart failure with mildly reduced ejection fraction and movement disorder, presented from home with chief complaint of bloody bowel movement. Patient reported that he had 1 episode of bright red blood per rectum on the morning of 06/28. Thiswas reported as bright red blood, patient also had a small bowel movement with it, small amount of clots noted. Patient denies any previous similar episodes. Denies NSAID use, denies abdominal pain, f ever/chills, weight loss. On presentation, patient was hemodynamically stable. Significant labs on presentation included hemoglobin 9.7, sodium 135, bicarb 19, creatinine 1.88, AST 75, ALT 62, total bilirubin 0.9, alk phos 247. Hemoglobin then dropped to 7.6, 1 PRBC unit transfused repeat hemoglobin was 8.9. CTA with contrast showed possible bleeding diverticula within the sigmoid colon with evidence of evolving intraluminal blood products on the arterial and delayed phases. Ground glass opacities of right lung base, multiple indeterminate right renal lesions. GI consulted for GI bleed. GI HISTORY SUMMARY TABLE Last EGD Last colonoscopy Last colonoscopy in 2020, no records available. Patient unsure of results. Primary GI physician PAST MEDICAL, SURGICAL, FAMILY, and SOCIAL HISTORY Past Medical History: Medical History[1] Past Surgical History: Surgical History[2] Family History: Family History[3] Social History: Social History[4] Allergies: Allergies[5] MEDICATIONS Home Medications: Prior to Admission medications Medication Sig Start Date End Date Taking? Authorizing Provider acetaminophen (Tylenol Extra Strength) 500 mg tablet Take 2 tablets (1,000 mg) by mouth every 6 (six) hours if needed for moderate pain (4-7 pain score). 06/09/25 08/08/25 Lisa Levy MD albuterol 90 mcg/actuation inhaler INHALE 1 PUFF BY MOUTH EVERY 4 HOURS NEEDED 12/02/21 Historical Provider, amLODIPine (Norvasc) 5 mg tablet Take 1 tablet by mouth two times daily. Historical Provider, aspirin 81 mg EC tablet Take 1 tablet by mouth in the morning. Historical Provider, atorvastatin (Lipitor) 80 mg tablet Take 80 mg by mouth at bedtime. 10/08/24 06/25/25 Historical Provider, buPROPion XL (Wellbutrin XL) 300 mg 24 hr tablet Use 1 tablet in the mouth or throat in the morning. Historical ProviderMD busPIRone (Buspar) 15 mg tablet Take 1 tablet by mouth in the morning and at bedtime. Historical Provider, clopidogrel (Plavix) 75 mg tablet Take 75 mg by mouth in the morning. Historical ProviderMD famotidine (Pepcid) 20 mg tablet Take 20 mg by mouth twice a day. 10/08/24 06/25/25 Historical ProviderMD fenofibrate micronized (Antara) 43 mg capsule Take 1 capsule by mouth in the morning and at bedtime. Historical Provider, vguajzgzoya-nmeztyflg-tcsbvxzd (Trelegy Ellipta) 100-62.5-25 mcg blister with device Inhale 1 puff in the morning. 02/18/24 Historical ProviderMD metoprolol tartrate (Lopressor) 50 mg tablet Take 50 mg by mouth two times daily. Historical ProviderMD nitroglycerin (Nitrostat) 0.4 mg SL tablet 06/17/24 Historical ProviderMD OLANZapine (ZyPREXA) 5 mg tablet Take 5 mg by mouth at bedtime. Historical Provider, rivaroxaban (Xarelto) 2.5 mg tablet Take 1 tablet (2.5 mg) by mouth two times daily for 197 doses. 06/09/25 09/16/25 Lisa Leyv MD sertraline (Zoloft) 100 mg tablet Take 2 tablets by mouth in the morning. Historical Provider, sodium zirconium cyclosilicate (Lokelma) 10 gram packet Take 10 g by mouth 3 (three) times a week. 05/26/25 Batsheva Beckwith MD sulfamethoxazole-trimethoprim (Bactrim DS) 800-160 mg tablet Take 1 tablet by mouth every 12 (twelve) hours for 7 days. 06/19/25 06/26/25 Demetris Swain MD traZODone (Desyrel) 100 mg tablet Take 1 tablet by mouth at bedtime. Historical Provider, Current Medications: PRNs: acetaminophen, 650 mg, q6h PRN melatonin, 5 mg, Nightly PRN ondansetron ODT, 4 mg, q8h PRN Or ondansetron, 4 mg, q6h PRN REVIEW OF SYSTEMS See HPI, otherwise ROS negative as below CONSTITUTIONAL: negative HEENT: negative RESPIRATORY: negative CARDIOVASCULAR: negative GASTROINTESTINAL: as in HPI GENITOURINARY: negative OBJECTIVE DATA Vitals: BP (!) 126/93 (BP Location: Left arm, Patient Position: Lying) Pulse 84 Temp 36.7 ??C (98.1 ??F) (Oral) Resp 26 Ht 1.651 m (5' 5 ) Wt 77.1 kg (170 lb) SpO2 97% BMI 28.29 kg/m?? GEN: Alert and oriented x3, NAD HEENT: Atraumatic, normocephalic CV: Regular rate and rhythm PULM: Breathing comfortably ABD: Soft, non-tender, non-distended NEURO: Moves all 4 extremities spontaneously LABS AND IMAGING CBC: Results from last 7 days Lab Units 06/29/2554406/29/253 06/28/25183806/26/25 1445 WBC AUTO 10*3/uL 4.90 -- 5.72 5.25 RBC AUTO 10*6/uL 3.01* -- 3.24* 3.28* HEMOGLOBIN g/dL 8.9* 7.6* 9.7* 10.0* HEMATOCRIT % 28.6* 24.3* 30.8* 31.6* MCV fL 95.0 -- 95.1 96.3 RDW % 15.3* -- 15.1* 15.4* PLATELETS AUTO 10*3/uL 146* -- 164 179 PT/INR Results from last 7 days Lab Units 06/26/25 1445 06/25/25 1529 PROTIME Seconds 14.4 15.5* INR 1.12* 1.22* BMP: Results from last 7 days Lab Units 06/29/25 0545 06/28/25 18306/26/25 1445 SODIUM mmol/L 137 135* 136 POTASSIUM mmol/L 5.1 5.1 5.2* CHLORIDE mmol/L 111* 108* 109* BUN mg/dL 23 27* 30* CREATININE mg/dL 1.63* 1.88* 2.03* EGFR mL/min/1.73m*2 44.5* 37.5* 34.2* GLUCOSE mg/dL 80 73 84 LFTs: Results from last 7 days Lab Units 06/29/25 0545 06/28/25183806/26/25 1445 BILIRUBIN TOTAL mg/dL 1.1* 0.9 0.7 ALK PHOS U/L 187* 247* 220* AST U/L 49* 75* 59* ALT U/L 45 62* 46 ALBUMIN g/dL 3.5 4.2 4.1 TOTAL PROTEIN g/dL 5.9* 7.3 7.1 B12/Folate/Iron studies: No results found for: OPSGIXXC97 , FOLATE , IRON , TIBC , UIBC , IRONSAT , FERRITIN Viral Hepatitis No results found for: HEPAIGM , HAV , HEPBSAG , HEPBSAB , HEPBEAB , HEPBIGM , HEPBCAB , HEPBCOREAB , HBVNAT , HCVSCR , HEPCAB , HCVNAT , HCVPCR , HCVTMA Liver workup No results found for: MILENA , SMOOTHMUSCAB , CERULOPLSM , [id number] , TTGA , IGA , TSH , FREET4 , AFP Pancreatitis Lab Results Component Value Date CALCIUM 8.6 06/29/2025 IMAGING: ASSESSMENT AND PLAN You Garcia is a 70 y.o. male with past medical history of CAD s/p CABG, COPD, hyperlipidemia, essential hypertension, CKD stage IV, heart failure with mildly reduced ejection fraction and movement disorder, presented from home with chief complaint of bloody bowel movements. GI consulted for GI bleed. Assessment Hematochezia Patient reports 1 episode of bright red blood per rectum on 06/28 and morning Reports passing small amounts of clots CTA abdomen and pelvis 06/28 showed possible bleeding diverticula within the sigmoid colon with evidence of evolving intraluminal blood products. Acute blood loss anemia Patient presented with hemoglobin of 9.7, baseline around 9-10 Hemoglobin dropped to 7.6 on repeat check, 1 PRBC unit transfused, repeat hemoglobin 8.9. Recent right femoral endarterectomy with femoropopliteal bypass 06/07/2025 Severe triple-vessel coronary artery disease, 2 out of 3 bypass grafts patent on recent cardiac cath 05/11/2025 Patient is on medical therapy for CAD including aspirin, Plavix, statin Chronic heart failure with reduced ejection fraction Peripheral arterial disease Patient remains on triple therapy with aspirin, Plavix, Xarelto COPD Dyslipidemia, on statin CKD stage IV Plan Continue to monitor for overt GI bleeding Monitor hemoglobin, transfuse as clinically indicated Continue aspirin and Plavix as per vascular surgery recommendation. Hold Xarelto if okay with primary team and vascular surgery in the setting of GI bleeding Keep patient on clear liquid diet. Start patient on bowel prep Plan for colonoscopy 06/30 GI will continue to follow. This consult will be discussed with attending physician. If you have any questions please feel freeto contact the GI Service. Thank you for allowing us to participate in the care of You Garcia. Gastroenterology 6 am to 4 pm weekdays in house: [phone] 4 pm to 6 am or weekends: Please contact the body press operator to page the fellow institutional nutrition consultant [1] Past Medical History: Diagnosis Date Anxiety Atherosclerosis of arteries of extremities Cancer (CMS/HCC) LUNG Chronic kidney disease, stage 4 (severe) (CMS/HCC) Coronary artery disease Depression Dyspnea on exertion Emphysema lung (CMS/HCC) Frequent falls GERD (gastroesophageal reflux disease) Hyperlipidemia Hypertension Intermittent claudication MCI (mild cognitive impairment) Migraine Mitral regurgitation PAD (peripheral artery disease) Peripheral arterial occlusive disease Pulmonary hyperinflation [2] Past Surgical History: Procedure Laterality Date CARDIAC CATHETERIZATION CATARACT EXTRACTION COLONOSCOPY CORONARY ARTERY BYPASS GRAFT FEMORAL BYPASS Right LUNG BIOPSY LUNG REMOVAL, PARTIAL [3] Family History Problem Relation Name Age of Onset Diabetes Mother Elizabeth [4] Social History Tobacco Use Smoking status: Former Types: Cigarettes Smokeless tobacco: Current Types: Chew Vaping Use Vaping status: Never Used Substance Use Topics Alcohol use: Not Currently Drug use: Never [5] No Known Allergies Cosigned by Kortney Gandhi MD at 06/29/2025 3:00 PM EST Associated attestation - Kortney Gandhi MD - 06/29/2025 3:00 PM EST I personally saw and examined the patient on the same date of service as fellow. I discussed the findings and therapeutic plan with the fellow. I agree with the documentation, except for any edits/updates below. Teaching Physician's Revisions: Plan for diagnostic colonoscopy once prepped documented in this encounter Nursing Notes * Zac Gunderson RN - 07/01/2025 3:[address] Sebastian okay for pt to return to unit * Zac Gunderson RN - 07/01/2025 2:[address] Horton is at bedside updating pt and family documented in this encounter ED Notes * Cleopatra Curiel MD - 06/28/2025 6:37 PM EST [facility] [address] [facility] [id number] EMERGENCY DEPARTMENT ENCOUNTER ED Room: 11/13 CHIEF COMPLAINT Chief Complaint Patient presents with Rectal Bleeding STATES HE STARTED TO PASS BRIGHT RED BLOOD AND THE CLOTS WERE DARKER. HISTORY OF PRESENT ILLNESS Patient is a 70-year-old male with past medical history of PAD status post femoropopliteal bypass last May complicated by infection presents to the ED for single episode of moderate amount of bright red blood per rectum with associated blood clots. Episode occurred for a few hours prior to arrival while patient was having bowel movement. Pictures provided by daughter at bedside which showed multiple large clots in the toilet bowl with blood-tinged toilet water. On exam no active bleeding however grossly positive Hemoccult. Patient does report some associated lightheadedness. Denies any new chest pain, shortness breath, nausea, vomiting, abdominal pain, fevers, chills, constipation or diarrhea. No recent colonoscopy. Patient was recently started on Xarelto in addition to Plavix due to severe peripheral vascular disease. Patient otherwise hemodynamically stable at this time. REVIEW OF SYSTEMS Review of Systems Gastrointestinal: Positive for anal bleeding and blood in stool. Negative for abdominal pain, diarrhea, nausea and rectal pain. Neurological: Positive for light-headedness. All other systems reviewed and are negative. PAST MEDICAL HISTORY has a past medical history of Anxiety, Atherosclerosis of arteries of extremities, Cancer (CMS/HCC), Chronic kidney disease, stage 4 (severe) (CMS/HCC), Coronary artery disease, Depression, Dyspnea on exertion, Emphysema lung (CMS/HCC), Frequent falls, GERD (gastroesophageal reflux disease), Hyperli pidemia, Hypertension, Intermittent claudication, MCI (mild cognitive impairment), Migraine, Mitralregurgitation, PAD (peripheral artery disease), Peripheral arterial occlusive disease, and Pulmonary hyperinflation. SURGICAL HISTORY has a past surgical history that includes Cardiac catheterization; Coronary artery bypass graft; Colonoscopy; Cataract extraction; Lung biopsy; Lung removal, partial; and Femoral bypass (Right). CURRENT MEDICATIONS Previous Medications ACETAMINOPHEN (TYLENOL EXTRA STRENGTH) 500 MG TABLET Take 2 tablets (1,000 mg) by mouth every 6 (six) hours if needed for moderate pain (4-7 pain score). ALBUTEROL 90 MCG/ACTUATION INHALER INHALE 1 PUFF BY MOUTH EVERY 4 HOURS NEEDED AMLODIPINE (NORVASC) 5 MG TABLET Take 1 tablet by mouth two times daily. ASPIRIN 81 MG EC TABLET Take 1 tablet by mouth in the morning. ATORVASTATIN (LIPITOR) 80 MG TABLET Take 80 mg by mouth at bedtime. BUPROPION XL (WELLBUTRIN XL) 300 MG 24 HR TABLET Use 1 tablet in the mouth or throat in the morning. BUSPIRONE (BUSPAR) 15 MG TABLET Take 1 tablet by mouth in the morning and at bedtime. CLOPIDOGREL (PLAVIX) 75 MG TABLET Take 75 mg by mouth in the morning. FAMOTIDINE (PEPCID) 20 MG TABLET Take 20 mg by mouth twice a day. FENOFIBRATE MICRONIZED (ANTARA) 43 MG CAPSULE Take 1 capsule by mouth in the morning and at bedtime. SMNWHIHIUHT-UHRNXNKST-YUZQDQRM (TRELEGY ELLIPTA) 100-62.5-25 MCG BLISTER WITH DEVICE Inhale 1 puff in the morning. METOPROLOL TARTRATE (LOPRESSOR) 50 MG TABLET Take 50 mg by mouth two times daily. NITROGLYCERIN (NITROSTAT) 0.4 MG SL TABLET OLANZAPINE (ZYPREXA) 5 MG TABLET Take 5 mg by mouth at bedtime. RIVAROXABAN (XARELTO) 2.5 MG TABLET Take 1 tablet (2.5 mg) by mouth two times daily for 197 doses. SERTRALINE (ZOLOFT) 100 MG TABLET Take 2 tablets by mouth in the morning. SODIUM ZIRCONIUM CYCLOSILICATE (LOKELMA) 10 GRAM PACKET Take 10 g by mouth 3 (three) times a week. TRAZODONE (DESYREL) 100 MG TABLET Take 1 tablet by mouth at bedtime. ALLERGIES has no known allergies. FAMILY HISTORY He indicated that the status of his mother is unknown. family history includes Diabetes in his mother. SOCIAL HISTORY reports that he has quit smoking. His smoking use included cigarettes. His smokeless tobacco use includes chew. He reports that he does not currently use alcohol. He reports that he does not use drugs. PHYSICIAL EXAM INITIAL VITALS: height is 1.651 m (5' 5 ) and weight is 77.1 kg (170 lb). His temperature is 36.1 ??C (97 ??F). His blood pressure is 123/44 (abnormal) and his pulse is 60. His respiration is 18 and oxygen saturation is 100%. Physical Exam Vitals and nursing note reviewed. Constitutional: General: He is not in acute distress. Appearance: Normal appearance. He is well-developed. Comments: Abrasion across nasal ridge and old bruising on right hip due to previous history of falls for which patient was evaluated. HENT: Head: Normocephalic and atraumatic. Eyes: Conjunctiva/sclera: Conjunctivae normal. Cardiovascular: Rate and Rhythm: Normal rate and regular rhythm. Heart sounds: No murmur heard. Pulmonary: Effort: Pulmonary effort is normal. No respiratory distress. Breath sounds: Normal breath sounds. Abdominal: Palpations: Abdomen is soft. Tenderness: There is no abdominal tenderness. Musculoskeletal: General: No swelling. Cervical back: Neck supple. Skin: General: Skin is warm and dry. Capillary Refill: Capillary refill takes less than 2 seconds. Neurological: Mental Status: He is alert. Psychiatric: Mood and Affect: Mood normal. DIAGNOSTIC RESULTS EKG: All EKG's are interpreted by the Emergency Department Physician who either signs or co-signs this chart in the absence of a industrial conveyor belt repairer. Encounter Date: 05/11/25 Electrocardiogram, 12-lead Result Value Ventricular Rate 54 Atrial Rate 54 NV Interval 190 QRS DURATION 120 QT Interval 492 QTC CALCULATION(BAZETT) 466 P [place] 36 R-[place] -22 T Wave [place] 95 Impression Sinus bradycardia Intra-ventricular conduction delay Nonspecific ST and T wave abnormality Abnormal ECG When compared with ECG of 08-APR-2025 07:50, no significant changes was noted Confirmed by Saqib Saldana ([id number]) on 05/11/2025 11:35:47 PM RADIOLOGY: Radiologist interpretation of the radiologic studies: No orders to display LABS: Labs Reviewed CBC AND DIFFERENTIAL Narrative: The following orders were created for panel order CBC and differential. Procedure Abnormality Status --------- ------ CBC auto differential[[id number]] Please view results for these tests on the individual orders. COMPREHENSIVE METABOLIC PANEL CBC WITH AUTO DIFFERENTIAL EMERGENCY DEPARMENT COURSE Vitals: Vitals: 06/28/25 1717 BP: (!) 123/44 BP Location: Right wrist Patient Position: Sitting Pulse: 60 Resp: 18 Temp: 36.1 ??C (97 ??F) SpO2: 100% Weight: 77.1 kg (170 lb) Height: 1.651 m (5' 5 ) BP: (!) 123/44, Temp: 36.1 ??C (97 ??F), , Heart Rate: 60, Resp: 18 DIFFERENTIAL DIAGNOSIS / MDM / EMERGENCY COURSE / DISPOSITION / PLAN Medical Decision Making Differential diagnoses include but not limited to lower GI bleed, no evidence of hemorrhagic shock,diverticulitis, no prior history of aortic aneurysm repair. Amount and/or Complexity of Data Reviewed Labs: ordered. Details: Labs Reviewed COMPREHENSIVE METABOLIC PANEL - Abnormal Sodium 135 (*) Potassium 5.1 Chloride 108 (*) CO2 19 (*) Anion Gap 13 BUN 27 (*) Creatinine 1.88 (*) BUN/Creatinine Ratio 14.4 Glucose 73 Calcium 9.2 AST 75 (*) ALT (SGPT) 62 (*) Alkaline Phosphatase 247 (*) Total Protein 7.3 Albumin 4.2 Total Bilirubin 0.9 eGFR 37.5 (*) CBC WITH AUTO DIFFERENTIAL - Abnormal Auto WBC 5.72 RBC 3.24 (*) Hemoglobin 9.7 (*) Hematocrit 30.8 (*) MCV 95.1 MCH 29.9 MCHC 31.5 (*) RDW 15.1 (*) Neutrophils % 76.5 (*) Lymphocytes % 12.9 (*) Monocytes % 6.3 Eosinophils % 3.3 Basophils % 0.7 Neutrophils Absolute 4.37 Lymphocytes Absolute 0.74 (*) Monocytes Absolute 0.36 Eosinophils Absolute 0.19 Basophils Absolute 0.04 Platelets 164 nRBC % 0.0 Immature Granulocytes % 0.3 Immature Granulocytes Absolute 0.02 HEMOGLOBIN AND HEMATOCRIT, BLOOD - Abnormal Hemoglobin 7.6 (*) Hematocrit 24.3 (*) COMPREHENSIVE METABOLIC PANEL - Abnormal Sodium 137 Potassium 5.1 Chloride 111 (*) CO2 21 Anion Gap 10 BUN 23 Creatinine 1.63 (*) BUN/Creatinine Ratio 14.1 Glucose 80 Calcium 8.6 AST 49 (*) ALT (SGPT) 45 Alkaline Phosphatase 187 (*) Total Protein 5.9 (*) Albumin 3.5 Total Bilirubin 1.1 (*) eGFR 44.5 (*) CBC WITH AUTO DIFFERENTIAL - Abnormal Auto WBC 4.90 RBC 3.01 (*) Hemoglobin 8.9 (*) Hematocrit 28.6 (*) MCV 95.0 MCH 29.6 MCHC 31.1 (*) RDW 15.3 (*) Neutrophils % 75.1 (*) Lymphocytes % 12.7 (*) Monocytes % 7.3 Eosinophils % 3.3 Basophils % 0.8 Neutrophils Absolute 3.68 Lymphocytes Absolute 0.62 (*) Monocytes Absolute 0.36 Eosinophils Absolute 0.16 Basophils Absolute 0.04 Platelets 146 (*) nRBC % 0.0 Immature Granulocytes % 0.8 Immature Granulocytes Absolute 0.04 HEMOGLOBIN AND HEMATOCRIT, BLOOD - Abnormal Hemoglobin 10.9 (*) Hematocrit 33.8 (*) HEMOGLOBIN - Abnormal Hemoglobin 12.4 (*) HEMOGLOBIN - Abnormal Hemoglobin 10.5 (*) POCT GLUCOSE METER UNSOLICITED RESULTS - Abnormal Glucose POC 53 (*) Narrative: Waived Testing in the ED is performed under the ED CLIA certificate #[id number]. POCT GLUCOSE METER UNSOLICITED RESULTS - Abnormal Glucose POC 55 (*) Narrative: Waived Testing in the ED is performed under the ED CLIA certificate #[id number]. POCT GLUCOSE METER UNSOLICITED RESULTS - Abnormal Glucose POC 55 (*) Narrative: Waived Testing in the ED is performed under the ED CLIA certificate #[id number]. POCT GLUCOSE METER UNSOLICITED RESULTS - Abnormal Glucose POC 59 (*) Narrative: Waived Testing in the ED is performed under the ED CLIA certificate #[id number]. HEMOGLOBIN AND HEMATOCRIT, BLOOD - Abnormal Hemoglobin 11.3 (*) Hematocrit 35.8 (*) POCT GLUCOSE METER UNSOLICITED RESULTS - Abnormal Glucose POC 49 (*) Narrative: Waived Testing in the ED is performed under the ED CLIA certificate #[id number]. BASIC METABOLIC PANEL - Abnormal Sodium 136 Potassium 4.6 Chloride 108 (*) CO2 16 (*) BUN 26 (*) Creatinine 1.60 (*) Glucose 77 Calcium 9.3 Anion Gap 17 eGFR 45.5 (*) BUN/Creatinine Ratio 16.3 BLOOD GAS, VENOUS - Abnormal pH, Artem 7.28 (*) pCO2, Artem 43 pO2, Artem 26 (*) O2 Sat, Artem 34.0 (*) HCO3, Venous 20.2 Oxyhemoglobin, Venous 33.3 pH Venous Temp Adjusted 7.28 (*) pCO2 Venous Temp Adjusted 43 pO2 Venous Temp Adjusted 26 (*) Temperature 37.0 BASIC METABOLIC PANEL - Abnormal Sodium 135 (*) Potassium 4.6 Chloride 109 (*) CO2 16 (*) BUN 25 Creatinine 1.62 (*) Glucose 65 (*) Calcium 8.9 Anion Gap 15 eGFR 44.8 (*) BUN/Creatinine Ratio 15.4 POCT OCCULT BLOOD STOOL - Abnormal Fecal Occult Blood Positive QC Pass/Fail Passed QC LOT # [id number] QC Expiration Date 04/07 POCT GLUCOSE METER UNSOLICITED RESULTS - Normal Glucose POC 79 Narrative: Waived Testing in the ED is performed under the ED CLIA certificate #[id number]. POCT GLUCOSE METER UNSOLICITED RESULTS - Normal Glucose POC 74 Narrative: Waived Testing in the ED is performed under the ED CLIA certificate #[id number]. CBC AND DIFFERENTIAL Narrative: The following orders were created for panel order CBC and differential. Procedure Abnormality Status --------- ------ CBC auto differential[[id number]] Abnormal Final result Please view results for these tests on the individual orders. TYPE AND SCREEN ABO Grouping B Rh Type POS Ab Scrn NEG CBC AND DIFFERENTIAL Narrative: The following orders were created for panel order CBC and differential. Procedure Abnormality Status --------- ------ CBC auto differential[[id number]] Abnormal Final result Please view results for these tests on the individual orders. PREPARE RBC Radiology: ordered. Details: CTA Abdomen Pelvis W IV Contrast Final Result * Possible bleeding diverticula within the sigmoid colon with evidence of evolving intraluminal blood products on the arterial and delayed phases. * Groundglass opacities of the right lung base could be infectious/inflammatory or atelectasis. Correlate clinically. * Multiple indeterminate right renal lesions. Further characterization with renal mass protocol MRI recommended. * Similar-appearing fluid collection overlying the proximal portion of the bypass graft in the right groin measuring approximately 3.4 x 2.8 cm Approved by:Michael Lee06/28/2025 10:03 PM. I, Bryson Grant,have reviewed the image(s) and agree with the findings in this report. Electronically signed: Bryson Grant. ECG/medicine tests: ordered. Diagnoses as of 07/04/25 1518 Lower GI bleed Diverticular hemorrhage I have reviewed the disposition diagnosis with the patient and/or their family/guardian. I have answered their questions and given discharge instructions. They voiced understanding of these instructions and did not have any further questions or complaints. CONSULTS: Consults PROCEDURE: @PROCEDURENOTES@ FINAL IMPRESSION No diagnosis found. PATIENT REFERRED TO: No follow-up provider specified. DISCHARGE MEDICATIONS: New Prescriptions No medications on file (Please note that portions of this note were completed with a voice recognition program. Efforts were made to edit the dictions but occasionally words are mis-transcribed.) MD Cleopatra Roberts MD 07/04/25 1522 documented in this encounter Miscellaneous Notes * Care Plan - Catherine Ludwig RN - 07/01/2025 5:50 PM EST The patient is Moderately Stable - Low risk of patient condition declining or worsening The patient's goals for the shift include comfort The clinical goals for the shift include stable vitals, safety Problem: Pain - Adult Goal: Verbalizes/displays adequate comfort level or baseline comfort level Outcome: Adequate for Discharge Problem: Safety - Adult Goal: Free from fall injury Outcome: Adequate for Discharge Problem: Discharge Planning Goal: Discharge to home or other facility with appropriate resources Outcome: Adequate for Discharge Problem: Chronic Conditions and Co-morbidities Goal: Patient's chronic conditions and co-morbidity symptoms are monitored and maintained or improved Outcome: Adequate for Discharge Problem: Skin Integrity Goal: STG-Wounds display improvment (i.e Smaller in size, healthy granulation tissue) Outcome: Adequate for Discharge * Anesthesia Transport Note - MATHIEU Rosales - 07/01/2025 2:43 PM EST Patient: You Garcia Procedure Summary Date: 07/01/25 Room / Location: [facility] Endoscopy Anesthesia Start: 1344 Anesthesia Stop: Procedure: DIAGNOSTIC COLONOSCOPY Diagnosis: Scheduled Providers: Melody Cortes MD; MATHIEU Rosales; Christie Horton MD Responsible Provider: Melody Cortes MD Anesthesia Type: MAC ASA Status: 3 Anesthesia Post [facility] Oxygen Flow (L/min): 8 Patient Monitor: direct observation Transport: uneventful Patient condition is: stable * Care Plan - Pina Coronado RN - 07/01/2025 12:52 PM EST Daily Case Management Update Barriers to Discharge et per Progress Note/s: OBV Day#3. Colonoscopy rescheduled to today due to poor prep. From Home. Diet: Dietary Orders (From admission, onward) Start Ordered 06/30/25 1521 Special Kitchen Request Once Comments: Lemon ice x 2 Apple juice Jello (not red) 06/30/25 1520 06/30/25 1427 Clear Liquid Diet Diet effective now Question: Room Service? Answer: No 06/30/25 1427 06/29/25 1640 Special Kitchen Request Once Comments: Regular sprite x2 NOT sprite zero please 06/29/25 1639 Physician Expected Discharge Date: 07/02/2025 Discharge Delays: PT Six Click Score: OT Six Click Score: PT Recommendations: OT Recommendations: New Consults: Consult Orders (From admission, onward) Start Ordered 06/29/25 0309 Inpatient consult to Gastroenterology Once Specialty: Gastroenterology Provider: (Not yet assigned) Question Answer Comment [facility] GASTROENTEROLOGY TEAM Reason for Consult? GI bleed Level of Consultation Consultation and Management 06/29/25 0309 * Care Plan - Carly Dinero RN - 06/30/2025 7:54 PM EST The patient is Moderately Stable - Low risk of patient condition declining or worsening The patient's goals for the shift include colonoscopy, comfort The clinical goals for the shift include stable hemodynamics, testing Over the shift, the patient did not make progress toward the following goals. Problem: Pain - Adult Goal: Verbalizes/displays adequate comfort level or baseline comfort level Outcome: Progressing Problem: Safety - Adult Goal: Free from fall injury Outcome: Progressing Flowsheets (Taken 06/30/20251950) Free from fall injury: Identify cognitive and physical deficits and behaviors that affect risk of falls Modify environment to reduce risk of injury Problem: Discharge Planning Goal: Discharge to home or other facility with appropriate resources Outcome: Progressing Flowsheets (Taken 06/30/20251945) Discharge to home or other facility with appropriate resources: Identify barriers to discharge with patient and caregiver Identify discharge learning needs (meds, wound care, etc) Problem: Chronic Conditions and Co-morbidities Goal: Patient's chronic conditions and co-morbidity symptoms are monitored and maintained or improved Outcome: Progressing Flowsheets (Taken 06/30/20251945) Care Plan - Patient's Chronic Conditions and Co-Morbidity Symptoms are Monitored and Maintained or Improved: Monitor and assess patient's chronic conditions and comorbid symptoms for stability, deterioration,or improvement Collaborate with multidisciplinary team to address chronic and comorbid conditions and prevent exacerbation or deterioration Update acute care plan with appropriate goals if chronic or comorbid symptoms are exacerbated and prevent overall improvement and discharge Problem: Skin Integrity Goal: STG-Wounds display improvment (i.e Smaller in size, healthy granulation tissue) Outcome: Progressing * Anesthesia Transport Note - MATHIEU Cruz - 06/30/2025 2:32 PM EST Patient: You Garcia Procedure Summary Date: 06/30/25 Room / Location: [facility] Invasive Surgery [place] [facility] Anesthesia Start: 1408 Anesthesia Stop: 1426 Procedure: DIAGNOSTIC COLONOSCOPY Diagnosis: Scheduled Providers: Kortney Gandhi MD Responsible Provider: Melody Cortes MD Anesthesia Type: MAC ASA Status: 3 Anesthesia Post Transport Note Transport to: PACU O2 Route: face mask Oxygen Flow (L/min): 4 Patient Monitor: direct observation Transport: uneventful Patient condition is: stable * Assessment & Plan Note - French Newsome MD - 06/30/2025 2:16 PM ESTAssociated Problem(s): Rectal bleeding - Likely is having an active diverticular bleed - Currently is hemodynamically stable - Received 2 units of packed RBCs and monitor hemoglobin closely - GI following, undergoing colonoscopy today - Holding Lexa, will await results of colonoscopy * Assessment & Plan Note - French Newsome MD - 06/30/2025 2:16 PM ESTAssociated Problem(s): Coronary artery disease involving [place] coronary artery of [place] heart without angina pectoris - No active chest pain or shortness of breath, has nitro as needed - Previous home medication list shows he is on aspirin, Plavix, metoprolol, atorvastatin and fenofibrate - Plavix continued * Assessment & Plan Note - French Newsome MD - 06/30/2025 2:16 PM ESTAssociated Problem(s): S/P CABG (coronary artery bypass graft) - No active chest pain or shortness of breath, has nitro as needed - Previous home medication list shows he is on aspirin, Plavix, metoprolol, atorvastatin and fenofibrate - Plavix continued * Assessment & Plan Note - French Newsome MD - 06/30/2025 2:16 PM ESTAssociated Problem(s): Peripheral vascular disease - was on dual antiplatelet therapy plus Xarelto - vascular surgery following and recommending to continue plavix at this time * Assessment & Plan Note - French Newsome MD - 06/30/2025 2:16 PM ESTAssociated Problem(s): S/P femoropopliteal bypass surgery - was on dual antiplatelet therapy plus Xarelto - vascular surgery following and recommending to continue plavix at this time * Assessment & Plan Note - French Newsome MD - 06/30/2025 2:16 PM ESTAssociated Problem(s): Chronic heart failure with mildly reduced ejection fraction (HFmrEF) (CMS/HCC) - Difficult to determine NYHA class - EF 40-45% - currently is euvolemic * Assessment & Plan Note - French Newsome MD - 06/30/2025 2:16 PM ESTAssociated Problem(s): Chronic kidney disease, stage 4 (severe) (CMS/HCC) - renal function at baseline - Monitor with daily BMP * Assessment & Plan Note - French Newsome MD - 06/30/2025 2:16 PM ESTAssociated Problem(s): Chronic obstructive pulmonary disease, unspecified (CMS/HCC) - respiratory status is stable, albuterol as needed and continue Trelegy Ellipta * Assessment & Plan Note - French Newsome MD - 06/30/2025 2:16 PM ESTAssociated Problem(s): Mixed hyperlipidemia - continue atorvastatin and fenofibrate * Assessment & Plan Note - French Newsome MD - 06/30/2025 2:16 PM ESTAssociated Problem(s): Hypertensive disorder - continue amlodipine, metoprolol - Blood pressure within acceptable range on 06/30 * Assessment & Plan Note - French Newsome MD - 06/30/2025 2:16 PM ESTAssociated Problem(s): Elevated LFTs - monitor clinically * Assessment & Plan Note - French Newsome MD - 06/30/2025 2:16 PM ESTAssociated Problem(s): Renal lesion - Outpatient MRI * Care Plan - Carmen Box RN - 06/30/2025 10:27 AM EST The patient is Moderately Stable - Low risk of patient condition declining or worsening The patient's goals for the shift include colonoscopy, comfort The clinical goals for the shift include stable hemodynamics, testing Problem: Pain - Adult Goal: Verbalizes/displays adequate comfort level or baseline comfort level Outcome: Progressing Problem: Safety - Adult Goal: Free from fall injury Outcome: Progressing Problem: Discharge Planning Goal: Discharge to home or other facility with appropriate resources Outcome: Progressing * Significant Event - Yuli Bardales RN - 06/30/2025 9:56 AM EST Readmission Risk Score unavailable. Zero ED/Inpt admits in the past 6 months. OP Specialty environmental technical officer received complex care referral via [employer]. This casualty underwriter reviewed the chart and pt does not meetcriteria for Outpatient Specialty/Complex information systems specialist program criteria at this time * Care Plan - Pat Best RN - 06/29/2025 7:47 PM EST The patient is Moderately Stable - Low risk of patient condition declining or worsening The patient's goals for the shift include comfort, rest. The clinical goals for the shift include stable vitals, bowel prep, safety. Problem: Pain - Adult Goal: Verbalizes/displays adequate comfort level or baseline comfort level Outcome: Progressing Problem: Safety - Adult Goal: Free from fall injury Outcome: Progressing Problem: Discharge Planning Goal: Discharge to home or other facility with appropriate resources Outcome: Progressing Problem: Chronic Conditions and Co-morbidities Goal: Patient's chronic conditions and co-morbidity symptoms are monitored and maintained or improved Outcome: Progressing Problem: Skin Integrity Goal: STG-Wounds display improvment (i.e Smaller in size, healthy granulation tissue) Outcome: Progressing * Care Plan - Carmen Box RN - 06/29/2025 11:05 AM EST The patient is Moderately Stable - Low risk of patient condition declining or worsening The patient's goals for the shift include The clinical goals for the shift include Problem: Pain - Adult Goal: Verbalizes/displays adequate comfort level or baseline comfort level Outcome: Progressing Problem: Safety - Adult Goal: Free from fall injury Outcome: Progressing Problem: Discharge Planning Goal: Discharge to home or other facility with appropriate resources Outcome: Progressing * Assessment & Plan Note - Obi Doyle MD - 06/29/2025 3:11 AM EST Associated Problem(s): Chronic heart failure with mildly reduced ejection fraction (HFmrEF) ([facility]) EF 40-45% currently is euvolemic * Assessment & Plan Note - Obi Doyle MD - 06/29/2025 3:05 AM EST Associated Problem(s): Rectal bleeding Likely is having an active diverticular bleed Currently is hemodynamically stable Will transfuse 2 units of packed RBCs and monitor hemoglobin closely Keep n.p.o. GI consult Holding Xarelto * Assessment & Plan Note - Obi Doyle MD - 06/29/2025 3:05 AM EST Associated Problem(s): Chronic kidney disease, stage 4 (severe) ([facility]) renal function at baseline * Assessment & Plan Note - Obi Doyle MD - 06/29/2025 3:05 AM EST Associated Problem(s): Chronic obstructive pulmonary disease, unspecified (CMS/HCC) respiratory status is stable, albuterol as needed and continue Trelegy Ellipta * Assessment & Plan Note - Obi Doyle MD - 06/29/2025 3:05 AM EST Associated Problem(s): Mixed hyperlipidemia continue atorvastatin and fenofibrate * Assessment & Plan Note - Obi Doyle MD - 06/29/2025 3:05 AM EST Associated Problem(s): Hypertensive disorder continue amlodipine, metoprolol * Assessment & Plan Note - Obi Doyle MD - 06/29/2025 3:05 AM EST Associated Problem(s): S/P femoropopliteal bypass surgery was on dual antiplatelet therapy plus Xarelto Consult vascular surgery for input regarding anticoagulation * Assessment & Plan Note - Obi Doyle MD - 06/29/2025 3:05 AM EST Associated Problem(s): Peripheral vascular disease was on dual antiplatelet therapy plus Xarelto Consult vascular surgery for input regarding anticoagulation * Assessment & Plan Note - Obi Doyle MD - 06/29/2025 3:05 AM EST Associated Problem(s): Elevated LFTs monitor clinically * Assessment & Plan Note - Obi Doyle MD - 06/29/2025 3:05 AM EST Associated Problem(s): Renal lesion Outpatient MRI * Assessment & Plan Note - Obi Doyle MD - 06/29/2025 3:05 AM EST Associated Problem(s): Coronary artery disease involving [place] coronary artery of [place] heart without angina pectoris No active chest pain or shortness of breath, has nitro as needed Previous home medication list shows he is on aspirin, Plavix, metoprolol, atorvastatin and fenofibrate * Assessment & Plan Note - Obi Doyle MD - 06/29/2025 3:05 AM EST Associated Problem(s): S/P CABG (coronary artery bypass graft) No active chest pain or shortness of breath, has nitro as needed Previous home medication list shows he is on aspirin, Plavix, metoprolol, atorvastatin and fenofibrate documented in this encounter Plan of Treatment DateTypeDepartmentCare Team (Latest Contact Info)Sfyuzqugrev37/08/2025 1:45 PM ESTFollow-Up [facility] Vascular and Endovascular Surgery [address] [place] [address] Nadia Sheppard PA-C [address] [place], [address] [place] [address] 07/22/2025 9:30 AM ESTFollow-Up [facility] Heart at [facility] [address] [place] [facility] [place] [address] Sarah Tolliver MD [address] [place] [phone] 07/29/2025 2:30 PM ESTFollow-Up [facility] Gastro[facility]ology [address] [place] [phone] Ebony Estevez CNP [address] [place] [address] 08/23/2025 7:30 AM ESTHospital Encounter [facility] Main Operating Room [address] [place] [address] Chris Andre MD [address] [place] [phone] 08/23/2025 7:30 AM EST - 08/23/2025 11:00 AM ESTSurgery [facility] Main Operating Room [address] [place] [address] Chris Andre MD [address] [place] [address] ENDARTERECTOMY, FEMORAL WITH POSSIBLE FEM TO POP KCABTX8109/21/2025 11:00 AM EST Follow-Up [facility] Nephrology [address] [place] [address] Batsheva Beckwith MD [address] [facility] [address] [facility] [place] [address] (work) NamePriorityAssociated DiagnosesDate/TimeENDARTERECTOMY, FEMORAL Peripheral arterial occlusive disease Encounter for pre-operative examination 08/23/2025 7:30 AM ESTdocumented as of this encounter Goals GoalPatient Goal TypeAssociated ProblemsRecent ProgressPatient-Stated?Author Blood Pressure < 140/90 Blood Ayhvlyyo316/78(07/06/2025 12:48 PM EST)Cy Child, RNdocumented as of this encounter Procedures Procedure NamePriorityDate/TimeAssociated DiagnosisCommentsBASIC METABOLIC PANEL STAT108/31/2024 4:17 PM EST DIAGNOSTIC FXDYZVULUIYRrsqqvb92/20/2025 2:36 PM EST BLOOD GAS, VENOUSPending Jyzsexwyt82/20/2025 11:28 AM EST POCT GLUCOSE METER UNSOLICITED MUAJSVJBbljdgj00/20/2025 9:23 AM EST HEMOGLOBIN AND HEMATOCRIT, BLOODPending Arinahini44/20/2025 6:51 AM EST EXTRA GRDLQLuxmqry03/20/2025 6:00 AM EST LIGHT GREEN NHJJovynxs54/20/2025 6:00 AM EST BASIC METABOLIC PANELSTAT Add-on07/01/2025 6:00 AM EST POCT GLUCOSE METER UNSOLICITED BRQKIIIDrcbsaa22/19/2025 8:10 PM EST POCT GLUCOSE METER UNSOLICITED BJUTAAGZjzfwgi23/19/2025 4:08 PM EST POCT GLUCOSE METER UNSOLICITED HEPHJIBBvvetnv03/19/2025 3:46 PM EST POCT GLUCOSE METER UNSOLICITED CPHHBLJQqoipbn45/19/2025 3:24 PM EST POCT GLUCOSE METER UNSOLICITED LARTJJVMcgamsk11/19/2025 3:01 PM EST DIAGNOSTIC MFDRXMMUDISRacvkos47/19/2025 2:25 PM EST POCT GLUCOSE METER UNSOLICITED HNHIZQLMinfkyc77/19/2025 1:23 PM EST FNGZPCIMQWDHMH54/18/2025 11:10 PM EST JHCUEGRVPIJVQB72/18/2025 5:47 PM EST HEMOGLOBIN AND HEMATOCRIT, HTENQZWRK48/18/2025 9:18 AM EST TRANSFUSE RED BLOOD LKBZIQrkvmxf95/18/2025 5:50 AM ESTCBC WITH AUTO DIFFERENTIAL STAT108/29/2024 5:45 AM EST CBC AND ARLVUPEJMURIByuwdyz83/18/2025 5:45 AM EST COMPREHENSIVE METABOLIC LZVESKuvfgwm04/18/2025 5:45 AM EST TRANSFUSE RED BLOOD OUDSVJyjngge86/18/2025 3:00 AM ESTPREPARE RBCRoutine 06/29/2025 1:40 AM EST HEMOGLOBIN AND HEMATOCRIT, QTWUOCAGU34/18/2025 12:33 AM EST TYPE AND ELQMBKETEV91/18/2025 12:33 AM EST CTA ABDOMEN PELVIS W IV GAQYJWFLAAKO68/17/2025 9:14 PM EST POCT OCCULT BLOOD RWTGGDFRU08/17/2025 7:15 PM EST CBC WITH AUTO DJLZKPPCXXFGVBQH96/17/2025 6:39 PM EST CBC AND WOGMGAQMJLOETSTB79/17/2025 6:39 PM EST COMPREHENSIVE METABOLIC RLVXNJOKX71/17/2025 6:39 PM EST documented in this encounter Results * (ABNORMAL) CBC (07/05/2025 1:47 PM EST)ComponentValueRef RangeTest Method Analysis TimePerformed AtPathologist SignatureAuto WBC4.414.00 - 10.60 10*3/uL 07/05/2025 2:05 PM [facility] ([facility])RBC3.46(L)4.20 - 5.70 10*6/uL 07/05/2025 2:05 PM [facility] ([facility])Bmzcpwuegv88.1(L)13.0 - 17.0 g/dL07/05/2025 2:05 PM [facility] ([facility])Epskdndncg80.3(L)39.0 - 50.0 %07/05/2025 2:05 PM [facility] ([facility])MCV93.482.0 - 98.0 fL 07/05/2025 2:05 PM [facility] ([facility])MCH29.227.0 - 33.0 pg 07/05/2025 2:05 PM [facility] ([facility])MCHC31.3(L)32.0 - 35.0 g/dL 07/05/2025 2:05 PM [facility] ([facility])RDW15.1(H)11.5 - 15.0 % 07/05/2025 2:05 PM [facility] ([facility])Hxwmriaxi968(L)150 - 400 10*3/uL07/05/2025 2:05 PM [facility] ([facility])Specimen (Source) Anatomical Location / LateralityCollection Method / VolumeCollection Time Received TimeBloodVenous blood specimen / UnknownVenipuncture / Unknown 07/05/2025 1:47 PM EST07/05/2025 1:54 PM EST Narrative Authorizing ProviderResult TypeResult StatusSukumaru Sammy Newsome MDLAB BLOOD ORDERABLESFinal ResultPerforming OrganizationAddressCity/State/ZIP CodePhone Number [facility] [address] [place] [address] * (ABNORMAL) Basic metabolic panel (07/05/2025 1:47 PM EST)ComponentValueRef RangeTest MethodAnalysis TimePerformed AtPathologist UmkffwwxhIxmaqd037555 - 145 mmol/L109/04/2024 2:18 PM [facility] ([facility])Potassium4.83.5 - 5.1 mmol/L109/04/2024 2:18 PM [facility] ([facility])Lcddkrqd889(H)98 - 107 mmol/L109/04/2024 2:18 PM [facility] ([facility])YF45152 - 31 mmol/L 07/05/2025 2:18 PM [facility] ([facility])IQD022 - 25 mg/dL07/05/2025 2:18 PM [facility] ([facility])Creatinine1.45(H)0.70 - 1.30 mg/dL 07/05/2025 2:18 PM [facility] ([facility])Drgtaxu1607 - 100 mg/dL 07/05/2025 2:18 PM [facility] ([facility])Calcium8.68.6 - 10.3 mg/dL 07/05/2025 2:18 PM [facility] ([facility])Anion Gap97 - 20 mmol/L 07/05/2025 2:18 PM [facility] ([facility])eGFR51.2(L)>60.0 mL/min/1.73m* 2:18 PM [facility] ([facility])Comment:[facility]???s estimated glomerular filtration rate (eGFR) will [...] not disproportionately affect any one group of individuals.BUN/Creatinine Ratio15. 2:18 PM [facility] ([facility])Specimen (Source)Anatomical Location / LateralityCollection Method / VolumeCollection TimeReceived TimeBloodVenous blood specimen / Unknown Venipuncture / Vevmast4007/05/2025 1:47 PM EST07/05/2025 1:53 PM EST Narrative Authorizing ProviderResult TypeResult StatusSukumaru Sammy Newsome MDLAB BLOOD ORDERABLESFinal ResultPerforming OrganizationAddressCity/State/ZIP CodePhone Number [facility] [address] [place] [address] * (ABNORMAL) Basic metabolic panel (07/01/2025 4:17 PM EST)ComponentValueRef RangeTest MethodAnalysis TimePerformed AtPathologist QrglcwmoiLrvsbp066(L)136 - 145 mmol/L108/31/2024 4:48 PM [facility] ([facility])Potassium4.63.5 - 5.1 mmol/L108/31/2024 4:48 PM [facility] ([facility])Jkeeqxgj305(H)98 - 107 mmol/L108/31/2024 4:48 PM [facility] ([facility])CO216(L)21 - 31 mmol/L108/31/2024 4:48 PM [facility] ([facility])GEW290 - 25 mg/dL 07/01/2025 4:48 PM [facility] ([facility])Creatinine1.62(H)0.70 - 1.30 mg/dL07/01/2025 4:48 PM [facility] ([facility])Yjyrnqh64(L)70 - 100 mg/dL07/01/2025 4:48 PM [facility] ([facility])Calcium8.98.6 - 10.3 mg/dL07/01/2025 4:48 PM [facility] ([facility])Anion Uiq083 - 20 mmol/L 07/01/2025 4:48 PM [facility] ([facility])eGFR44.8(L)>60.0 mL/min/1.73m* 4:48 PM [facility] ([facility])Comment:[facility]???s estimated glomerular filtration rate (eGFR) will [...] not disproportionately affect any one group of individuals.BUN/Creatinine Ratio15. 4:48 PM ESTUNM [facility] ([facility])Specimen (Source)Anatomical Location / LateralityCollection Method / VolumeCollection TimeReceived TimeBloodVenous blood specimen / Unknown Venipuncture / Snkduff3707/01/2025 4:17 PM EST07/01/2025 4:26 PM EST Narrative Authorizing ProviderResult TypeResult StatusSukumaru Sammy Newsome MDLAB BLOOD ORDERABLESFinal ResultPerforming OrganizationAddressCity/State/ZIP CodePhone Number [facility] [address] [place] [address] * Diagnostic Colonoscopy (07/01/2025 2:36 PM EST)Anatomical RegionLaterality ModalityEndoscopySpecimen (Source)Anatomical Location / LateralityCollection Method / VolumeCollection TimeReceived Time Narrative 07/01/2025 2:58 PM EST Table formatting from the original result was not included. Colonoscopy Procedure Note Procedure: ??Colonoscopy Indications: ??70 y.o. male who had 1 episode of hematochezia with 2 g drop in his hemoglobin. ??CT angio revealed signs of bleeding in the sigmoid colon. ??The patient is scheduled to have a colonoscopy to assess the colon for etiology of hematochezia. Sedation: ??MAC Medications: No administrations occurring from 1341 to 1436 on 07/01/25 Attending Physician: ??Christie Horton MD Infection Control Nurse: ??Maria Eugenia Dodd MD Procedure Details Informed consent was obtained for the procedure, including sedation. ?? Risks of perforation, hemorrhage, adverse drug reaction and aspiration were discussed. The patient was placed in the left lateral decubitus position. ??The patient was monitored continuously with ECG tracing, pulse oximetry, blood pressure monitoring, and direct observations. ?? A rectal examination was performed. ??The colonoscope was inserted into the rectum and advanced under direct vision to the terminal ileum. ??A careful inspection was made as the colonoscope was withdrawn, including a retroflexed view of the rectum; findings and interventions are described below. ??Appropriate photodocumentation was obtained. Findings: Digital rectal examination was unremarkable. ??Colonoscopy to the terminal ileum revealed normal mucosa with no ulcerations or erosions or inflammations. ??Small diverticula noted throughout the colon, more in the sigmoid colon. ??A single large pedunculated sigmoid colon polyp measured 2 cm in size noted at the level of 25 cm from the anal verge. ??The polyp had a long stalk. ??The polyp was not bleeding and was noted removed due to the treatment with anticoagulation. ??Retroflexion in the rectum revealed moderate size external hemorrhoids. Quality of colonic prep: ??Fair Withdrawal time: 15 minutes Procedure Events Event Event Time CLN SCOPE IN 07/01/2025 ??1:59 PM CLN CECUM REACHED 07/01/2025 ??2:17 PM CLN SCOPE OUT 07/01/2025 ??2:32 PM Specimens: No specimens collected Complications: ??None Estimated blood loss: ??Minimal ? Disposition: ??Inpatient gregorio ? Condition: stable Impression: ?? Pandiverticulosis disease. ??Small nonbleeding diverticula noted throughout the colon, more in the sigmoid colon. Large pedunculated nonbleeding sigmoid colon polyp measured 1.8 to 2 cm in size noted at 25 cm proximal to the anal verge. ??The polyp had a long stalk. ??The polyp was not biopsied or resected due to the treatment of anticoagulation. Moderate size external hemorrhoids. Recommendations: Follow-up H&H. Consider polypectomy if anticoagulation can be stopped. Attending Attestation: I was present and scrubbed for the entire procedure. Authorizing ProviderResult TypeResult StatusAli Sol MDENDOSCOPY PROCEDURE ORDERABLESFinal Result * (ABNORMAL) Blood Gas, Venous (07/01/2025 11:28 AM EST)ComponentValueRef Range Test MethodAnalysis TimePerformed AtPathologist SignaturepH, Ven7.28(L)7.31 - 7.41108/31/2024 11:42 AM [facility] RESPIRATORY THERAPYpCO2, Grg6947 - 50 mmHg 07/01/2025 11:42 AM [facility] RESPIRATORY THERAPYpO2, Ven26(L)35 - 45 mmHg 07/01/2025 11:42 AM [facility] RESPIRATORY THERAPYO2 Sat, Ven34.0(LL)65.0 - 75.0 %07/01/2025 11:42 AM [facility] RESPIRATORY THERAPYHCO3, Czrgse81.2mmol/L 07/01/2025 11:42 AM [facility] RESPIRATORY THERAPYOxyhemoglobin, Jxkwbo97.3% 07/01/2025 11:42 AM [facility] RESPIRATORY THERAPYpH Venous Temp Adjusted7.28(L) 7.31 - 7.41108/31/2024 11:42 AM [facility] RESPIRATORY THERAPYpCO2 Venous Temp Mowpjxul7375 - 50 mmHg07/01/2025 11:42 AM [facility] RESPIRATORY THERAPYpO2 Venous Temp Mywvnutk80(L)35 - 45 mmHg07/01/2025 11:42 AM [facility] RESPIRATORY BVUQBCEUnbdhmrxsaz26.0??07/01/2025 11:42 AM [facility] RESPIRATORY THERAPY Specimen (Source)Anatomical Location / LateralityCollection Method / Volume Collection TimeReceived TimeBloodVenous blood specimen / UnknownVenipuncture / Ipklmmz2107/01/2025 11:28 AM EST07/01/2025 11:38 AM EST Narrative Authorizing ProviderResult TypeResult StatusFrench CEE BLOOD ORDERABLESFinal ResultPerforming OrganizationAddressCity/State/ZIP CodePhone Number [facility] RESPIRATORY THERAPY [address] [place] [address], * POCT glucose meter (07/01/2025 9:23 AM EST)ComponentValueRef RangeTest Method Analysis TimePerformed AtPathologist SignatureGlucose FJK7695 - 105 mg/dL 07/01/2025 9:34 AM [facility] ([facility])Comment:jdlugolSpecimen (Source)Anatomical Location / LateralityCollection Method / VolumeCollection TimeReceived TimeBloodCapillary blood specimen / Brrptgc4507/01/2025 9:23 AM EST 07/01/2025 9:34 AM EST Narrative [facility] ([facility]) - 07/01/2025 9:34 AM EST Waived Testing in the ED is performed under the ED CLIA certificate #[id number]. Authorizing ProviderResult TypeResult StatusFrench CEE BLOOD ORDERABLESFinal ResultPerforming OrganizationAddressCity/State/ZIP CodePhone Number [facility] ([facility]) [address] [place] [address] * (ABNORMAL) Hemoglobin and hematocrit, blood (07/01/2025 6:51 AM EST)Component ValueRef RangeTest MethodAnalysis TimePerformed AtPathologist Signature Xcnmfrfasp24.3(L)13.0 - 17.0 g/dL07/01/2025 7:16 AM [facility] ([facility])Avvxheccql16.8(L)39.0 - 50.0 %07/01/2025 7:16 AM [facility] ([facility])Specimen (Source)Anatomical Location / LateralityCollection Method / VolumeCollection TimeReceived TimeBloodVenous blood specimen / Unknown Venipuncture / Tiblexh5907/01/2025 6:51 AM EST07/01/2025 6:56 AM EST Narrative Authorizing ProviderResult TypeResult StatusChris CEE BLOOD ORDERABLES Final ResultPerforming OrganizationAddressCity/State/ZIP CodePhone Number [facility] ([facility]) [address] [place] [address] * (ABNORMAL) Basic metabolic panel (07/01/2025 6:00 AM EST)ComponentValueRef RangeTest MethodAnalysis TimePerformed AtPathologist FeynhapjdMkalux482884 - 145 mmol/L108/31/2024 8:36 AM [facility] ([facility])Potassium4.63.5 - 5.1 mmol/L108/31/2024 8:36 AM [facility] ([facility])Axqjlwka508(H)98 - 107 mmol/L108/31/2024 8:36 AM [facility] ([facility])CO216(L)21 - 31 mmol/L108/31/2024 8:36 AM [facility] ([facility])BUN26(H)7 - 25 mg/dL 07/01/2025 8:36 AM [facility] ([facility])Creatinine1.60(H)0.70 - 1.30 mg/dL07/01/2025 8:36 AM [facility] ([facility])Ehzvujt2719 - 100 mg/dL 07/01/2025 8:36 AM [facility] ([facility])Calcium9.38.6 - 10.3 mg/dL 07/01/2025 8:36 AM [facility] ([facility])Anion Fzs880 - 20 mmol/L 07/01/2025 8:36 AM [facility] ([facility])eGFR45.5(L)>60.0 mL/min/1.73m* 8:36 AM [facility] ([facility])Comment:[facility]???s estimated glomerular filtration rate (eGFR) will [...] not disproportionately affect any one group of individuals.BUN/Creatinine Ratio16. 8:36 AM [facility] ([facility])Specimen (Source)Anatomical Location / LateralityCollection Method / VolumeCollection TimeReceived TimeBloodVenous blood specimen / Unknown 07/01/2025 6:00 AM EST07/01/2025 6:57 AM EST Narrative Authorizing ProviderResult TypeResult StatusKyu Sammy Newsome MDLAB BLOOD ORDERABLESFinal ResultPerforming OrganizationAddressCity/State/ZIP CodePhone Number [facility] ([facility]) [address] [place] [address] * Light Green Top (07/01/2025 6:00 AM EST)ComponentValueRef RangeTest Method Analysis TimePerformed AtPathologist SignatureExtra TubeHold for add-ons. 07/01/2025 8:01 AM [facility] ([facility])Comment:Auto resulted.Specimen (Source)Anatomical Location / LateralityCollection Method / VolumeCollection TimeReceived TimeBloodVenous blood specimen / Wpnqdog1007/01/2025 6:00 AM EST 07/01/2025 6:57 AM EST Narrative Authorizing ProviderResult TypeResult StatusFrench Newsome MDLAB BLOOD ORDERABLESFinal ResultPerforming OrganizationAddressCity/State/ZIP CodePhone Number [facility] ([facility]) [address] [place] [address] * (ABNORMAL) POCT glucose meter (06/30/2025 8:10 PM EST)ComponentValueRef Range Test MethodAnalysis TimePerformed AtPathologist SignatureGlucose POC49(LL)70 - 105 mg/dL07/01/2025 6:31 AM [facility] ([facility])Comment:ixmdtdf89 Specimen (Source)Anatomical Location / LateralityCollection Method / Volume Collection TimeReceived TimeBloodCapillary blood specimen / Skthcra7506/30/2025 8:10 PM EST07/01/2025 6:31 AM EST Narrative [facility] ([facility]) - 07/01/2025 6:31 AM EST Waived Testing in the ED is performed under the ED CLIA certificate #[id number]. Authorizing ProviderResult TypeResult StatusFrench Newsome [facility] BLOOD ORDERABLESFinal ResultPerforming OrganizationAddressCity/State/ZIP CodePhone Number [facility] [address] [place] [address] * POCT glucose meter (06/30/2025 4:08 PM EST)ComponentValueRef RangeTest Method Analysis TimePerformed AtPathologist SignatureGlucose FOG3738 - 105 mg/dL 06/30/2025 4:19 PM [facility] ([facility])Comment:ebeginSpecimen (Source)Anatomical Location / LateralityCollection Method / VolumeCollection TimeReceived TimeBloodCapillary blood specimen / Ndpaund8206/30/2025 4:08 PM EST 06/30/2025 4:19 PM EST Narrative [facility] ([facility]) - 06/30/2025 4:19 PM EST Waived Testing in the ED is performed under the ED CLIA certificate #[id number]. Authorizing ProviderResult TypeResult StatusFrench Newsome [facility] BLOOD ORDERABLESFinal ResultPerforming OrganizationAddressCity/State/ZIP CodePhone Number [facility] ([facility]) [address] [facility] [place] [address] * (ABNORMAL) POCT glucose meter (06/30/2025 3:46 PM EST)ComponentValueRef Range Test MethodAnalysis TimePerformed AtPathologist SignatureGlucose POC59(L)70 - 105 mg/dL06/30/2025 3:57 PM [facility] ([facility])Comment:ebegin Specimen (Source)Anatomical Location / LateralityCollection Method / Volume Collection TimeReceived TimeBloodCapillary blood specimen / Jnktvmn2106/30/2025 3:46 PM EST06/30/2025 3:57 PM EST Narrative [facility] ([facility]) - 06/30/2025 3:57 PM EST Waived Testing in the ED is performed under the ED CLIA certificate #[id number]. Authorizing ProviderResult TypeResult StatusFrench CEE BLOOD ORDERABLESFinal ResultPerforming OrganizationAddressCity/State/ZIP CodePhone Number [facility] ([facility]) [address] [place] [address] * (ABNORMAL) POCT glucose meter (06/30/2025 3:24 PM EST)ComponentValueRef Range Test MethodAnalysis TimePerformed AtPathologist SignatureGlucose POC55(L)70 - 105 mg/dL06/30/2025 3:34 PM [facility] ([facility])Comment:ebegin Specimen (Source)Anatomical Location / LateralityCollection Method / Volume Collection TimeReceived TimeBloodCapillary blood specimen / Dydlxxm8406/30/2025 3:24 PM EST06/30/2025 3:34 PM EST Narrative [facility] ([facility]) - 06/30/2025 3:34 PM EST Waived Testing in the ED is performed under the ED CLIA certificate #[id number]. Authorizing ProviderResult TypeResult StatusFrench CEE BLOOD ORDERABLESFinal ResultPerforming OrganizationAddressCity/State/ZIP CodePhone Number [facility] ([facility]) [address] [facility] [place] [address] * (ABNORMAL) POCT glucose meter (06/30/2025 3:01 PM EST)ComponentValueRef Range Test MethodAnalysis TimePerformed AtPathologist SignatureGlucose POC55(L)70 - 105 mg/dL06/30/2025 3:11 PM [facility] ([facility]Comment:kroddy2 Specimen (Source)Anatomical Location / LateralityCollection Method / Volume Collection TimeReceived TimeBloodCapillary blood specimen / Syhjjep7106/30/2025 3:01 PM EST06/30/2025 3:11 PM EST Narrative [facility] ([facility]) - 06/30/2025 3:11 PM EST Waived Testing in the ED is performed under the ED CLIA certificate #[id number]. Authorizing ProviderResult TypeResult StatusSukumaru Sammy Newsome MDLAB BLOOD ORDERABLESFinal ResultPerforming OrganizationAddressCity/State/ZIP CodePhone Number [facility] ([place]) [address] [place] [address] * Diagnostic Colonoscopy (06/30/2025 2:25 PM EST)Anatomical RegionLaterality ModalityEndoscopySpecimen (Source)Anatomical Location / LateralityCollection Method / VolumeCollection TimeReceived Time Narrative 06/30/2025 2:25 PM EST Table formatting from the original result was not included. Colonoscopy Procedure Note Procedure: ??Colonoscopy with anesthesia Indications: ??70 y.o. male presenting for colonoscopy for evaluation of hematochezia and anemia Sedation: ??MAC Medications: No administrations occurring from 1358 to 1420 on 06/30/25 Attending Physician: ??Kortney Gandhi MD Infection Control Nurse: ??None Procedure Details Informed consent was obtained for the procedure, including sedation. ?? Risks of perforation, hemorrhage, adverse drug reaction and aspiration were discussed. The patient was placed in the left lateral decubitus position. ??The patient was monitored continuously with ECG tracing, pulse oximetry, blood pressure monitoring, and direct observations. ?? A rectal examination was performed. ??The pediatric colonoscope was inserted into the rectum and advanced under direct vision to the sigmoid colon. ??A careful inspection was made as the colonoscope was withdrawn, including a retroflexed view of the rectum; findings and interventions are described below. ??Appropriate photodocumentation was obtained. Findings: Thick liquid stool and solid stool preventing advancement of the scope and obscuring views, therefore, the colonoscope was withdrawn. Quality of colonic prep: ??Poor Withdrawal time: ??1 minute Specimens: No specimens collected Complications: ??None Estimated blood loss: ??None ? Disposition: ??Home ? Condition: stable Impression: ?? Thick liquid stool and solid stool preventing advancement of the scope and obscuring views, therefore, the colonoscope was withdrawn. Recommendations: Continue bowel pre and plan for colonoscopy tomorrow Attending Attestation: I performed the procedure. Authorizing ProviderResult TypeResult Cecil Gandhi MDENDOSCOPY PROCEDURE ORDERABLESFinal Result * (ABNORMAL) POCT glucose meter (06/30/2025 1:23 PM EST)ComponentValueRef Range Test MethodAnalysis TimePerformed AtPathologist SignatureGlucose POC53(L)70 - 105 mg/dL06/30/2025 1:34 PM [facility] ([facility])Comment:dspears Specimen (Source)Anatomical Location / LateralityCollection Method / Volume Collection TimeReceived TimeBloodCapillary blood specimen / Unrjima2306/30/2025 1:23 PM EST06/30/2025 1:34 PM EST Narrative [facility] ([facility]) - 06/30/2025 1:34 PM EST Waived Testing in the ED is performed under the ED CLIA certificate #[id number]. Authorizing ProviderResult TypeResult Lilian Newsome MDLAB BLOOD ORDERABLESFinal ResultPerforming OrganizationAddressCity/State/ZIP CodePhone Number [facility] ([facility]) [address] [place] [address] * (ABNORMAL) Hemoglobin (06/29/2025 11:10 PM EST)ComponentValueRef RangeTest MethodAnalysis TimePerformed AtPathologist KmcpscumuObkmfnhikv51.5(L)13.0 - 17.0 g/dL06/30/2025 12:47 AM [facility] ([facility])Specimen (Source) Anatomical Location / LateralityCollection Method / VolumeCollection Time Received TimeBloodVenous blood specimen / UnknownVenipuncture / Unknown 06/29/2025 11:10 PM EST06/30/2025 12:13 AM EST Narrative Authorizing ProviderResult TypeResult StatusOmamartin CEE BLOOD ORDERABLES Final ResultPerforming OrganizationAddressCity/State/ZIP CodePhone Number [facility]) [address] [place] [address] * (ABNORMAL) Hemoglobin (06/29/2025 5:47 PM EST)ComponentValueRef RangeTest MethodAnalysis TimePerformed AtPathologist KcasjyuhuGxptvlgzmf22.4(L)13.0 - 17.0 g/dL06/29/2025 6:23 PM [facility] ([facility])Specimen (Source) Anatomical Location / LateralityCollection Method / VolumeCollection Time Received TimeBloodVenous blood specimen / UnknownVenipuncture / Unknown 06/29/2025 5:47 PM EST06/29/2025 6:17 PM EST Narrative Authorizing ProviderResult TypeResult StatusOmamartin CEE BLOOD ORDERABLES Final ResultPerforming OrganizationAddressCity/State/ZIP CodePhone Number [facility]) [address] [place] [address] * (ABNORMAL) Hemoglobin and hematocrit, blood (06/29/2025 9:18 AM EST)Component ValueRef RangeTest MethodAnalysis TimePerformed AtPathologist Signature Bunikqtenz22.9(L)13.0 - 17.0 g/dL06/29/2025 10:19 AM [facility] ([facility])Salzvnahfi48.8(L)39.0 - 50.0 %06/29/2025 10:19 AM [facility])Specimen (Source)Anatomical Location / LateralityCollection Method / VolumeCollection TimeReceived TimeBloodVenous blood specimen / Unknown Venipuncture / Kvethsz6306/29/2025 9:18 AM EST06/29/2025 9:54 AM EST Narrative Authorizing ProviderResult TypeResult StatusObi CEE BLOOD ORDERABLESFinal ResultPerforming OrganizationAddressCity/State/ZIP CodePhone Number [facility]) [address] [place] [address] * Transfuse RBC (06/29/2025 8:09 AM EST) Narrative Authorizing ProviderResult TypeResult StatusIdrees Vivek WOODARD TRANSFUSION ORDERABLESFinal Result * Transfuse RBC: 2 Units (06/29/2025 8:09 AM EST) Narrative Authorizing ProviderResult TypeResult StatusIdrees Vivek WOODARD TRANSFUSION ORDERABLESFinal Result * (ABNORMAL) CBC auto differential (06/29/2025 5:45 AM EST)ComponentValueRef RangeTest MethodAnalysis TimePerformed AtPathologist SignatureAuto WBC4.904.00 - 10.60 10*3/uL06/29/2025 6:07 AM [facility] ([facility])RBC3.01(L)4.20 - 5.70 10*6/uL06/29/2025 6:07 AM [facility] ([facility])Hemoglobin8.9 (L)13.0 - 17.0 g/dL06/29/2025 6:07 AM [facility] ([facility])Hematocrit 28.6(L)39.0 - 50.0 %06/29/2025 6:07 AM [facility] ([facility])MCV95.0 82.0 - 98.0 fL06/29/2025 6:07 AM [facility] ([facility])MCH29.627.0 - 33.0 pg06/29/2025 6:07 AM [facility] ([facility])MCHC31.1(L)32.0 - 35.0 g/dL06/29/2025 6:07 AM [facility] ([facility])RDW15.3(H)11.5 - 15.0 % 06/29/2025 6:07 AM [facility] ([facility])Neutrophils %75.1(H)40.0 - 72.0 %06/29/2025 6:07 AM [facility] ([facility])Lymphocytes %12.7(L)20.0 - 45.0 %06/29/2025 6:07 AM [facility] ([facility])Monocytes %7.35.0 - 12.0 %06/29/2025 6:07 AM [facility] ([facility])Eosinophils %3.30.0 - 6.0 %06/29/2025 6:07 AM [facility] ([facility])Basophils %0.80.0 - 1.0 % 06/29/2025 6:07 AM [facility] ([facility])Neutrophils Absolute3.681.60 - 7.60 10*3/uL06/29/2025 6:07 AM [facility] ([facility])Lymphocytes Absolute0.62(L)1.20 - 4.00 10*3/uL06/29/2025 6:07 AM [facility] ([facility])Monocytes Absolute0.360.10 - 1.00 10*3/uL06/29/2025 6:07 AM [facility] ([facility])Eosinophils Absolute0.160.00 - 0.50 10*3/uL06/29/2025 6:07 AM [facility] ([facility])Basophils Absolute0.040.00 - 0.20 10*3/uL 06/29/2025 6:07 AM [facility] ([facility])Rzqntcwao946(L)150 - 400 10*3/uL06/29/2025 6:07 AM [facility] ([facility])nRBC %0.00 %06/29/2025 6:07 AM [facility] ([facility])Immature Granulocytes %0.80.0 - 1.0 % 06/29/2025 6:07 AM [facility] ([facility])Immature Granulocytes Absolute 0.040.00 - 0.20 10*3/uL06/29/2025 6:07 AM [facility] ([facility]) Specimen (Source)Anatomical Location / LateralityCollection Method / Volume Collection TimeReceived TimeBloodVenous blood specimen / UnknownVenipuncture / Hqpwuqs9206/29/2025 5:45 AM EST06/29/2025 5:59 AM EST Narrative Authorizing ProviderResult TypeResult StatusIdrees Vivek CEE BLOOD ORDERABLESFinal ResultPerforming OrganizationAddressCity/State/ZIP CodePhone Number [facility] ([facility]) [address] [place] [address] * (ABNORMAL) Comprehensive metabolic panel (06/29/2025 5:45 AM EST)Component ValueRef RangeTest MethodAnalysis TimePerformed AtPathologist SignatureSodium 212213 - 145 mmol/L108/29/2024 6:30 AM [facility] ([facility])Potassium 5.13.5 - 5.1 mmol/L108/29/2024 6:30 AM [facility] ([facility])Kcznwiuk569 (H)98 - 107 mmol/L108/29/2024 6:30 AM [facility] ([facility])RD84478 - 31 mmol/L108/29/2024 6:30 AM [facility] ([facility])Anion Fjf550 - 20 mmol/L108/29/2024 6:30 AM [facility] ([facility])IJM843 - 25 mg/dL 06/29/2025 6:30 AM [facility] ([facility])Creatinine1.63(H)0.70 - 1.30 mg/dL06/29/2025 6:30 AM [facility] ([facility])BUN/Creatinine Ratio14.1 06/29/2025 6:30 AM [facility] ([facility])Mofdcnb6352 - 100 mg/dL 06/29/2025 6:30 AM [facility] ([facility])Calcium8.68.6 - 10.3 mg/dL 06/29/2025 6:30 AM [facility] ([facility])AST49(H)13 - 39 U/L108/29/2024 6:30 AM [facility] ([facility])ALT (SGPT)457 - 52 U/08/29/2024 6:30 AM [facility] ([facility])Alkaline Ptbjzcxetnx654(H)34 - 104 U/08/29/2024 6:30 AM [facility] ([facility])Total Protein5.9(L)6.0 - 8.3 g/dL 06/29/2025 6:30 AM [facility] ([facility])Albumin3.53.5 - 5.7 g/dL 06/29/2025 6:30 AM [facility] ([facility])Total Bilirubin1.1(H)0.3 - 1.0 mg/dL06/29/2025 6:30 AM [facility] ([facility])eGFR44.5(L)>60.0 mL/min/1.73m*211/ 6:30 AM [facility] ([place])Comment:[facility]???s estimated glomerular filtration rate (eGFR) will [...] not disproportionately affect any one group of individuals.Specimen (Source)Anatomical Location / LateralityCollection Method / VolumeCollection TimeReceived TimeBloodVenous blood specimen / UnknownVenipuncture / Xlxntqb9106/29/2025 5:45 AM EST06/29/2025 5:59 AM EST Narrative Authorizing ProviderResult TypeResult StatusIdrees Vivek CEE BLOOD ORDERABLESFinal ResultPerforming OrganizationAddressCity/State/ZIP CodePhone Number [facility] ([place]) [address] [place] [address] * Transfuse RBC (06/29/2025 5:05 AM EST) Narrative Authorizing ProviderResult TypeResult StatusIdrees Vivek WOODARD TRANSFUSION ORDERABLESFinal Result * Prepare RBC: 2 Units (06/29/2025 1:40 AM EST)ComponentValueRef RangeTest MethodAnalysis TimePerformed AtPathologist SignaturePRODUCT [id number] BLOOD BANKUnit [id number] BLOOD BANKUnit [facility] BLOOD BANK Unit [facility] BLOOD BANKCrossmatch InterpretationCOMROOSEVELT GENERAL [facility]PITAL BLOOD BANKDispense StatusTRGERALD [facility]ION [facility] BLOOD BANKBlood Expiration [id number] BLOOD BANKProduct Blood [id number] BLOOD BANKUnit [id number] BLOOD BANKPRODUCT CODE [id number] BLOOD BANKUnit [id number] BLOOD BANKUnit [facility] BLOOD BANKUnit RhPOSGERALD CHAMPION REGIONAL [facility] BLOOD BANKCrossmatch InterpretationCOMROOSEVELT GENERAL [facility]OSPITAL BLOOD BANKDispense StatusTRGERALD [facility]ION [facility] BLOOD BANKBlood Expiration [id number] BLOOD BANKProduct Blood Ncmy2412ABTM BLOOD BANKSpecimen (Source)Anatomical Location / LateralityCollection Method / VolumeCollection TimeReceived Time Other06/29/2025 1:40 AM EST Narrative Authorizing ProviderResult TypeResult StatusIdrees Vivek LEMONOOD BANK PRODUCT ORDERABLESFinal ResultPerforming OrganizationAddressCity/State/ZIP Code Phone Number [facility] BLOOD BANK * Type and screen (06/29/2025 12:33 AM EST)ComponentValueRef RangeTest Method Analysis TimePerformed AtPathologist SignatureABO KqfolnnnC39/18/2025 2:08 AM [facility] BLOOD BANKRh RdtxWHL3206/29/2025 2:08 AM [facility] BLOOD BANKAb ScrnNEG 06/29/2025 2:08 AM [facility] BLOOD BANKSpecimen (Source)Anatomical Location / LateralityCollection Method / VolumeCollection TimeReceived TimeBloodVenous blood specimen / UnknownVenipuncture / Ktbijen5506/29/2025 12:33 AM EST 06/29/2025 12:58 AM EST Narrative Authorizing ProviderResult TypeResult StatusNasheed Moisés [facility] BLOOD BANK TEST ORDERABLESFinal ResultPerforming OrganizationAddressCity/State/ZIP Code Phone Number [facility] BLOOD BANK * (ABNORMAL) Hemoglobin and hematocrit, blood (06/29/2025 12:33 AM EST)Component ValueRef RangeTest MethodAnalysis TimePerformed AtPathologist Signature Hemoglobin7.6(L)13.0 - 17.0 g/dL06/29/2025 1:28 AM [facility] ([facility])Qushwbfszj22.3(L)39.0 - 50.0 %06/29/2025 1:28 AM [facility] ([facility]Specimen (Source)Anatomical Location / LateralityCollection Method / VolumeCollection TimeReceived TimeBloodVenous blood specimen / Unknown Venipuncture / Sbqmipi2506/29/2025 12:33 AM EST06/29/2025 1:00 AM EST Narrative Authorizing ProviderResult TypeResult StatusNasheed Moisés MDLAB BLOOD ORDERABLESFinal ResultPerforming OrganizationAddressCity/State/ZIP CodePhone Number [facility] ([place]) [address] [place] [address] * CTA Abdomen Pelvis W IV Contrast (06/28/2025 9:14 PM EST)Anatomical Region LateralityModalityBody, Pelvis, AbdomenComputed TomographySpecimen (Source) Anatomical Location / LateralityCollection Method / VolumeCollection Time Received Time06/28/2025 9:48 PM EST Impressions 06/28/2025 10:37 PM EST * Possible bleeding diverticula within the sigmoid colon with evidence of evolving intraluminal blood products on the arterial and delayed phases. * Groundglass opacities of the right lung base could be infectious/inflammatory or atelectasis. Correlate clinically. * Multiple indeterminate right renal lesions. Further characterization with renal mass protocol MRI recommended. * Similar-appearing fluid collection overlying the proximal portion of the bypass graft in the right groin measuring approximately 3.4 x 2.8 cm Approved by:Michael Lee06/28/2025 10:03 PM. I, Bryson Grant,have reviewed the image(s) and agree with the findings in this report. Electronically signed: Bryson Grant. Narrative 06/28/2025 10:[address] ANGIOGRAM ABDOMEN/PELVIS CLINICAL INFORMATION: ] Bleeding per rectum COMPARISON: ??06/26/2025 TECHNIQUE: Multidetector CT Angiogram performed with IV contrast through the abdomen and pelvis including 3-D Maximum intensity projection reconstructions constructed under concurrent physician supervision on a independent workstation. 3 D images obtained to improve visualization of vascular detail. Automated exposure control was utilized. All CT scans at this facility use dose modulation, iterative reconstruction, and/or weight based dosing when appropriate to reduce radiation dose to as low as reasonably achievable. FINDINGS: VASCULAR FINDINGS: Aorta: Patent without significant stenosis. Nonaneurysmal.Severe atherosclerotic disease. Celiac artery: ??Patent. Atherosclerotic disease causing zwnh-vl-izhxfbup ostial stenosis. Superior mesenteric artery: ??Patent. Atherosclerotic disease causing mild proximal stenosis. Renal arteries: ??Patent. Atherosclerotic disease causing moderate stenosis. Inferior mesenteric artery: Patent. Right iliac arterial system: ??Patent. Atherosclerotic disease. Moderate stenosis of the internal iliac. Left iliac arterial system: ??Patent. Moderate atherosclerotic disease. Moderate stenosis of the internal iliac. NONVASCULAR FINDINGS: LOWER CHEST: Bibasilar atelectasis and scarring. Groundglass opacities of the right lung base could be infectious/inflammatory or atelectasis. Cardiomegaly. Coronary artery calcifications. Prominent bilateral hilar lymph nodes. No pleural or pericardial effusion. LIVER AND BILIARY: Noncirrhotic liver morphology. No suspicious hepatic lesion. Gallbladder is unremarkable. No biliary ductal dilatation. The pancreas and adrenal glands demonstrate no acute abnormality. Enlarged spleen measures 14.8 cm craniocaudal. KIDNEYS, URETERS, AND BLADDER: Symmetric renal enhancement. Redemonstrated indeterminate 2.3 cm right renal lesion does not meet criteria for simple cyst. There are additional 1.0 cm right renal lesions that are also technically indeterminate. Further characterization with renal protocol MRI recommended. No collecting system dilatation. Urinary bladder is unremarkable. GI TRACT AND PERITONEUM: No significant free fluid. No free air. Colonic diverticulosis without diverticulitis. Appendix is unremarkable. Evolving intraluminal blood products within the sigmoid colon, likely related to diverticular disease. LYMPH NODES: No lymphadenopathy. REPRODUCTIVE ORGANS: Unremarkable MUSCULOSKELETAL/soft tissues: Similar-appearing fluid collection overlying the proximal portion of the bypass graft in the right groin measuring approximately 3.4 x 2.8 cm. Multilevel degenerative changes spine. Procedure Note Bryson Grant MD - 06/28/2025 CT ANGIOGRAM ABDOMEN/PELVIS CLINICAL INFORMATION: ] Bleeding per rectum COMPARISON: 06/26/2025 TECHNIQUE: Multidetector CT Angiogram performed with IV contrast through the abdomenand pelvis including 3-D Maximum intensity projection reconstructionsconstructed under concurrent physician supervision on a independent workstation. 3 Dimages obtained to improve visualization of vascular detail. Automated exposurecontrol was utilized. All CT scans at this facility use dose modulation, iterativereconstruction, and/or weight based dosing when appropriate to reduce radiation dose to aslow as reasonably achievable. FINDINGS: VASCULAR FINDINGS: Aorta: Patent without significant stenosis. Nonaneurysmal.Severeatherosclerotic disease. Celiac artery: Patent. Atherosclerotic disease causing wmqv-si-cxkstjwitivtjw stenosis. Superior mesenteric artery: Patent. Atherosclerotic disease causingmild proximal stenosis. Renal arteries: Patent. Atherosclerotic disease causing moderatestenosis. Inferior mesenteric artery: Patent. Right iliac arterial system: Patent. Atherosclerotic disease. Moderatestenosis of the internal iliac. Left iliac arterial system: Patent. Moderate atherosclerotic disease.Moderate stenosis of the internal iliac. NONVASCULAR FINDINGS: LOWER CHEST: Bibasilar atelectasis and scarring. Groundglass opacities ofthe right lung base could be infectious/inflammatory or atelectasis.Cardiomegaly. Coronary artery calcifications. Prominent bilateral hilar lymph nodes.No pleural or pericardial effusion. LIVER AND BILIARY: Noncirrhotic liver morphology. No suspicious hepaticlesion. Gallbladder is unremarkable. No biliary ductal dilatation. The pancreas and adrenal glands demonstrate no acute abnormality.Enlarged spleen measures 14.8 cm craniocaudal. KIDNEYS, URETERS, AND BLADDER: Symmetric renal enhancement.Redemonstrated indeterminate 2.3 cm right renal lesion does not meet criteria for simplecyst. There are additional 1.0 cm right renal lesions that are alsotechnically indeterminate. Further characterization with renal protocol MRIrecommended. No collecting system dilatation. Urinary bladder is unremarkable. GI TRACT AND PERITONEUM: No significant free fluid. No free air. Colonic diverticulosis without diverticulitis. Appendix is unremarkable.Evolving intraluminal blood products within the sigmoid colon, likely related to diverticular disease. LYMPH NODES: No lymphadenopathy. REPRODUCTIVE ORGANS: Unremarkable MUSCULOSKELETAL/soft tissues: Similar-appearing fluid collection overlyingthe proximal portion of the bypass graft in the right groin measuringapproximately 3.4 x 2.8 cm. Multilevel degenerative changes spine. IMPRESSION: *Possible bleeding diverticula within the sigmoid colon with evidenceof evolving intraluminal blood products on the arterial and delayed phases. *Groundglass opacities of the right lung base could be infectious/inflammatory or atelectasis. Correlate clinically. *Multiple indeterminate right renal lesions. Further characterizationwith renal mass protocol MRI recommended. *Similar-appearing fluid collection overlying the proximal portion ofthe bypass graft in the right groin measuring approximately 3.4 x 2.8 cm Approved by:Michael Lee06/28/2025 10:03 PM. I, Bryson Grant,have reviewed the image(s) and agree with the findingsin this report. Electronically signed: Bryson Grant. Authorizing ProviderResult TypeResult StatusNasheed [facility] CT PROCEDURES Final Result * (ABNORMAL) POCT occult blood stool manually resulted (06/28/2025 7:15 PM EST) ComponentValueRef RangeTest MethodAnalysis TimePerformed AtPathologist SignatureFecal Occult BloodPositiveQC Pass/FailPassedQC LOT #[id number] Expiration Date04/07Specimen (Source)Anatomical Location / LateralityCollection Method / VolumeCollection TimeReceived UkrgWhrtp40/17/2025 7:15 PM EST Narrative Authorizing ProviderResult TypeResult StatusNasheed Moisés MDPOINT OF CARE TEST ENTER/EDIT ORDERABLESFinal Result * (ABNORMAL) CBC auto differential (06/28/2025 6:39 PM EST)ComponentValueRef RangeTest MethodAnalysis TimePerformed AtPathologist SignatureAuto WBC5.724.00 - 10.60 10*3/uL06/28/2025 6:52 PM [facility] ([place])RBC3.24(L)4.20 - 5.70 10*6/uL06/28/2025 6:52 PM [facility] ([place])Hemoglobin9.7(L) 13.0 - 17.0 g/dL06/28/2025 6:52 PM [facility] ([place])Yngotcucso69.8 (L)39.0 - 50.0 %06/28/2025 6:52 PM [facility] ([place])MCV95.182.0 - 98.0 fL06/28/2025 6:52 PM [facility] ([place])MCH29.927.0 - 33.0 pg 06/28/2025 6:52 PM [facility] ([place])MCHC31.5(L)32.0 - 35.0 g/dL 06/28/2025 6:52 PM [facility] ([place])RDW15.1(H)11.5 - 15.0 % 06/28/2025 6:52 PM [facility] ([place])Neutrophils %76.5(H)40.0 - 72.0 %06/28/2025 6:52 PM [facility] ([place])Lymphocytes %12.9(L)20.0 - 45.0 %06/28/2025 6:52 PM [facility] ([place])Monocytes %6.35.0 - 12.0 %06/28/2025 6:52 PM [facility] ([place])Eosinophils %3.30.0 - 6.0 %06/28/2025 6:52 PM [facility] ([facility])Basophils %0.70.0 - 1.0 % 06/28/2025 6:52 PM [facility] ([facility])Neutrophils Absolute4.371.60 - 7.60 10*3/uL06/28/2025 6:52 PM [facility] ([facility])Lymphocytes Absolute0.74(L)1.20 - 4.00 10*3/uL06/28/2025 6:52 PM [facility] ([facility])Monocytes Absolute0.360.10 - 1.00 10*3/uL06/28/2025 6:52 PM [facility] ([facility])Eosinophils Absolute0.190.00 - 0.50 10*3/uL06/28/2025 6:52 PM [facility] ([facility])Basophils Absolute0.040.00 - 0.20 10*3/uL 06/28/2025 6:52 PM [facility] ([facility])Vbxqxnvvo264760 - 400 10*3/uL 06/28/2025 6:52 PM [facility] ([facility])nRBC %0.00 %06/28/2025 6:52 PM [facility] ([facility])Immature Granulocytes %0.30.0 - 1.0 %06/28/2025 6:52 PM [facility] ([facility])Immature Granulocytes Absolute0.020.00 - 0.20 10*3/uL06/28/2025 6:52 PM [facility] ([facility])Specimen (Source) Anatomical Location / LateralityCollection Method / VolumeCollection Time Received TimeBloodVenous blood specimen / UnknownVenipuncture / Unknown 06/28/2025 6:39 PM EST06/28/2025 6:43 PM EST Narrative Authorizing ProviderResult TypeResult StatusNasheed Moisés CEE BLOOD ORDERABLESFinal ResultPerforming OrganizationAddressCity/State/ZIP CodePhone Number [facility] ([facility]) [address] [place] [address] * (ABNORMAL) Comprehensive metabolic panel (06/28/2025 6:39 PM EST)Component ValueRef RangeTest MethodAnalysis TimePerformed AtPathologist SignatureSodium 135(L)136 - 145 mmol/L108/28/2024 7:09 PM [facility] ([facility]) Potassium5.13.5 - 5.1 mmol/L108/28/2024 7:09 PM [facility] ([facility]) Hcpoatxu856(H)98 - 107 mmol/L108/28/2024 7:09 PM [facility] ([facility]) CO219(L)21 - 31 mmol/L108/28/2024 7:09 PM [facility] ([facility])Anion Bfu103 - 20 mmol/L108/28/2024 7:09 PM [facility] ([facility])BUN27(H)7 - 25 mg/dL06/28/2025 7:09 PM [facility] ([facility])Creatinine1.88(H)0.70 - 1.30 mg/dL06/28/2025 7:09 PM [facility] ([facility])BUN/Creatinine Ratio14. 7:09 PM [facility] ([facility])Evtcasu8181 - 100 mg/dL06/28/2025 7:09 PM [facility] ([facility])Calcium9.28.6 - 10.3 mg/dL06/28/2025 7:09 PM [facility] ([facility])AST75(H)13 - 39 U/L 06/28/2025 7:09 PM [facility] ([facility])ALT (SGPT)62(H)7 - 52 U/L 06/28/2025 7:09 PM [facility] ([facility])Alkaline Nugpnuhugzx845(H)34 - 104 U/L108/28/2024 7:09 PM [facility] ([facility])Total Protein7.36.0 - 8.3 g/dL06/28/2025 7:09 PM [facility] ([facility])Albumin4.23.5 - 5.7 g/dL06/28/2025 7:09 PM [facility] ([facility])Total Bilirubin0.90.3 - 1.0 mg/dL06/28/2025 7:09 PM [facility] ([facility])eGFR37.5(L)>60.0 mL/min/1.73m* 7:09 PM [facility] [place])Comment:[facility]???s estimated glomerular filtration rate (eGFR) will [...] not disproportionately affect any one group of individuals.Specimen (Source)Anatomical Location / LateralityCollection Method / VolumeCollection TimeReceived TimeBloodVenous blood specimen / UnknownVenipuncture / Ikjlkhf7706/28/2025 6:39 PM EST06/28/2025 6:43 PM EST Narrative Authorizing ProviderResult TypeResult StatusNasheed Moisés CEE BLOOD ORDERABLESFinal ResultPerforming OrganizationAddressCity/State/ZIP CodePhone Number [facility] ([place]) [address] [place] [address] documented in this encounter Visit Diagnoses Diagnosis Encounter for pre-operative examination- Primary Peripheral arterial occlusive disease Unspecified peripheral vascular disease Rectal bleeding- Primary Hemorrhage of rectum and anus Lower GI bleed Unspecified, hemorrhage of gastrointestinal tract Diverticular hemorrhage Diverticulosis of colon with hemorrhage Metabolic acidosis Acidosis Chronic kidney disease, stage 4 (severe) (CMS/HCC) Chronic obstructive pulmonary disease, unspecified (CMS/HCC) Hypertensive disorder Unspecified essential hypertension Mixed hyperlipidemia Peripheral vascular disease Unspecified peripheral vascular disease S/P femoropopliteal bypass surgery Elevated LFTs Other abnormal blood chemistry Chronic heart failure with mildly reduced ejection fraction (HFmrEF) (CMS/HCC) Renal lesion Coronary artery disease involving [place] coronary artery of [place] heart without angina pectoris S/P CABG (coronary artery bypass graft) Postsurgical aortocoronary bypass status Peripheral arterial occlusive disease Unspecified peripheral vascular disease Encounter for pre-operative examination documented in this encounter Admitting Diagnoses Diagnosis Rectal bleeding Hemorrhage of rectum and anus documented in this encounter Administered Medications Medication OrderMAR ActionAction DateDoseRateSite atorvastatin (Lipitor) tablet 80 mg 80 mg, oral, Nightly, First dose on Sat06/29/25 at 2200, For 99 days Given06/30/2025 10:26 PM EST80 aiZklyg5706/29/2025 9:57 PM EST80 mg bisacodyl (Dulcolax) EC tablet 10 mg 10 mg, oral, 2 times daily, First dose on Sat06/29/25 at 1000, For 3 doses, Do not give within 1 hour of antacids, milk, or dairy products. Do not crush, chew, or split. Given06/29/2025 9:57 PM EST10 jhXyhvd0306/29/2025 1:42 PM EST10 mg bisacodyl (Dulcolax) EC tablet 10 mg 10 mg, oral, 2 times daily, First dose on Sat06/30/25 at 1430, For 3 doses, Phase II/On Unit, Do not give within 1 hour of antacids, milk, or dairy products. Do not crush, chew, or split. Given07/01/2025 6:00 AM EST10 oaRikfu4006/30/2025 3:31 PM EST10 mg buPROPion XL (Wellbutrin XL) 24 hr tablet 300 mg 300 mg, oral, Every morning, First dose on Sat06/29/25 at 1400, For 99 days, Do not crush, chew, or split. Given07/01/2025 9:53 AM JQR448 cfZywvx5206/30/2025 9:27 AM GNN757 mgGiven 06/29/2025 1:43 PM HFV329 mg busPIRone (Buspar) tablet 15 mg 15 mg, oral, 2 times daily RT, First dose on Sat06/29/25 at 1400, For 99 days Given07/01/2025 8:17 AM EST15 yjEldhf5306/30/2025 10:26 PM EST15 eoLlskq6406/30/2025 9:27 AM EST15 mg clopidogrel (Plavix) tablet 75 mg 75 mg, oral, Daily, First dose on Sat06/29/25 at 1000, For 99 days Given07/01/2025 4:26 PM EST75 obWtppk9306/30/2025 9:27 AM EST75 jnWxudc8606/29/2025 1:42 PM EST75 mg furosemide (Lasix) injection 20 mg 20 mg, intravenous, Once, On Sat06/29/25 at 0820, For 1 dose, Administer undiluted IV push at a rate no greater than 20 mg/minute. Given06/29/2025 1:42 PM EST20 mg iohexol (OMNIPaque) 350 mg iodine/mL injection 100 mL 100 mL, intravenous, Once in imaging, Starting on Sat06/28/25 at 2114, For 1 dose Given06/28/2025 9:14 PM HYN507 mL melatonin tablet 5 mg 5 mg, oral, Nightly PRN, sleep, Starting on Sat06/29/25 at 0423, For 99 days Given06/30/2025 10:26 PM EST5 mg metoprolol tartrate (Lopressor) tablet 50 mg 50 mg, oral, 2 times daily, First dose on Sat06/29/25 at 1400, For 99 days Given07/01/2025 9:53 AM EST50 rwYubbd8106/30/2025 10:27 PM EST50 lrPvdec5106/30/2025 9:27 AM EST50 mg ondansetron HCl (PF) (Zofran) injection 4 mg 4 mg, intravenous, Every 6 hours PRN, nausea, vomiting, Starting on Sat06/29/25 at 0423, For 99 days, Give IV if patient is unable to take orally. Administer as an IV push over 2 to 5 minutes. ondansetron ODT (Zofran-ODT) disintegrating tablet 4 mg 4 mg, oral, Every 8 hours PRN, nausea, vomiting, Starting on Sat06/29/25 at 0423, For 99 days polyethylene glycol (Glycolax) powder 238 g 238 g, oral, Once, On Sat06/29/25 at 0810, For 1 dose, Mix in 64 oz of clear liquid, give in 2 divided doses Given06/29/2025 3:36 PM GZU696 g polyethylene glycol-electrolytes (Nulytely) solution 4,000 mL 4,000 mL, oral, Once, On Sat06/30/25 at 1430, For 1 dose, Phase II/On Unit Given06/30/2025 3:30 PM EST4,000 mL sodium chloride 0.9 % bolus 1,000 mL 1,000 mL, intravenous, at 2,000 mL/hr, Administer over 30 Minutes, Once, On Sat06/28/25 at 2000, For 1 dose New 06/28/2025 8:02 PM EST1,000 aG6254 mL/hr sodium chloride 0.9 % infusion 20 mL/hr, intravenous, Continuous, Starting on Sat06/29/25 at 0235, For 12 hours, With Blood Transfusion New 06/29/2025 5:01 AM EST20 mL/hr20 mL/hr traZODone (Desyrel) tablet 100 mg 100 mg, oral, Nightly, First dose on Sat06/29/25 at 2200, For 99 days Given06/30/2025 10:25 PM QIM426 pgSlasf9006/29/2025 9:57 PM URE030 mgdocumented in this encounter Active and Recently Administered Medications Times are shown in EST.Medication Order/ atorvastatin (Lipitor) tablet 80 mg 80 mg, oral, Nightly, First dose on Sat06/29/25 at 2200, For 99 days * 2157 (Given - Provider: Pat Best RN) * 2226 (Given - Provider: Carly Dinero, JOHANA) bisacodyl (Dulcolax) EC tablet 10 mg () 10 mg, oral, 2 times daily, First dose on Sat06/29/25 at 1000, For 3 doses, Do not give within 1 hour of antacids, milk, or dairy products. Do not crush, chew, or split. * 1342 (Given - Provider: Carmen Box RN) * 2157 (Given - Provider: Pat Best RN) * 1000 (Not Given - Provider: Carmen Box RN - Reason: Other) bisacodyl (Dulcolax) EC tablet 10 mg 10 mg, oral, 2 times daily, First dose on Sat06/30/25 at 1430, For 3 doses, Phase II/On Unit, Do not give within 1 hour of antacids, milk, or dairy products. Do not crush, chew, or split. * 1531 (Given - Provider: Carmen Box RN) * 0600 (Given - Provider: Carly Dinero RN) * 1800 (Canceled Entry - Provider: Automatic Discharge Provider - Comment: Automatically canceled at discontinue of medication order) buPROPion XL (Wellbutrin XL) 24 hr tablet 300 mg 300 mg, oral, Every morning, First dose on Sat06/29/25 at 1400, For 99 days, Do not crush, chew, or split. * 1343 (Given - Provider: Carmen Box RN) * 0927 (Given - Provider: Carmen Box RN) * 0953 (Given - Provider: Catherine Ludwig RN) busPIRone (Buspar) tablet 15 mg 15 mg, oral, 2 times daily RT, First dose on Sat06/29/25 at 1400, For 99 days * 1343 (Given - Provider: Carmen Box RN) * 0927 (Given - Provider: Carmen Box RN) * 2226 (Given - Provider: Carly Dinero RN) * 0817 (Given - Provider: Catherine Ludwig RN) * 2000 (Canceled Entry - Provider: Automatic Discharge Provider - Comment: Automatically canceled at discontinue of medication order) clopidogrel (Plavix) tablet 75 mg 75 mg, oral, Daily, First dose on Sat06/29/25 at 1000, For 99 days * 1342 (Given - Provider: Carmen Box RN) * 0927 (Given - Provider: Carmen Box RN) * 1626 (Given - Provider: Catherine Ludwig RN - Comment: held for procedure) furosemide (Lasix) injection 20 mg (COMPLETED) 20 mg, intravenous, Once, On Sat06/29/25 at 0820, For 1 dose, Administer undiluted IV push at a rate no greater than 20 mg/minute. * 1342 (Given - Provider: Carmen Box RN) metoprolol tartrate (Lopressor) tablet 50 mg 50 mg, oral, 2 times daily, First dose on Sat06/29/25 at 1400, For 99 days * 1342 (Given - Provider: Carmen Box RN) * 2157 (Given - Provider: Pat Best RN) * 0927 (Given - Provider: Carmen Box RN) * 2227 (Given - Provider: Carly Dinero RN) * 0953 (Given - Provider: Catherine Ludwig, JOHANA) polyethylene glycol (Glycolax) powder 238 g (COMPLETED) 238 g, oral, Once, On Sat06/29/25 at 0810, For 1 dose, Mix in 64 oz of clear liquid, give in 2 divided doses * 1536 (Given - Provider: Carmen Box, RN) polyethylene glycol-electrolytes (Nulytely) solution 4,000 mL (COMPLETED) 4,000 mL, oral, Once, On Sat06/30/25 at 1430, For 1 dose, Phase II/On Unit * 1530 (Given - Provider: Carmen Box, RN) traZODone (Desyrel) tablet 100 mg 100 mg, oral, Nightly, First dose on Sat06/29/25 at 2200, For 99 days * 2157 (Given - Provider: Pat Best RN) * 2225 (Given - Provider: Carly Dinero, JOHANA) Medication Order// sodium chloride 0.9 % infusion () 20 mL/hr, intravenous, Continuous, Starting on Sat06/29/25 at 0235, For 12 hours, With Blood Transfusion * 0501 (New Bag - Provider: Daniel Thomson RN) * 1045 (Stopped - Provider: Carmen Box RN - Comment: not present upon arrival to unit) Medication Order// acetaminophen (Tylenol) tablet 650 mg 650 mg, oral, Every 6 hours PRN, mild pain (1-3 pain score), (1-3), Starting on Sat06/29/25 at 0423, For 99 days albuterol 90 mcg/actuation inhaler 1 puff 1 puff, inhalation, Every 6 hours PRN, shortness of breath, wheezing, Starting on Sat06/29/25 at 1332 melatonin tablet 5 mg 5 mg, oral, Nightly PRN, sleep, Starting on Sat06/29/25 at 0423, For 99 days * 2226 (Given - Provider: Carly Dinero, JOHANA) ondansetron HCl (PF) (Zofran) injection 4 mg(Linked Group 1) 4 mg, intravenous, Every 6 hours PRN, nausea, vomiting, Starting on Sat06/29/25 at 0423, For 99 days, Give IV if patient is unable to take orally. Administer as an IV push over 2 to 5 minutes. ondansetron ODT (Zofran-ODT) disintegrating tablet 4 mg(Linked Group 1) 4 mg, oral, Every 8 hours PRN, nausea, vomiting, Starting on Sat06/29/25 at 0423, For 99 days Order Group 1: ondansetron ODT (Zofran-ODT) disintegrating tablet 4 mgJump to med 4 mg, oral, Every 8 hours PRN, nausea, vomiting, Starting on Sat06/29/25 at 0423, For 99 days Or ondansetron HCl (PF) (Zofran) injection 4 mgJump to med 4 mg, intravenous, Every 6 hours PRN, nausea, vomiting, Starting on Sat06/29/25 at 0423, For 99 days, Give IV if patient is unable to take orally. Administer as an IV push over 2 to 5 minutes. documented in this encounter Care Teams Team MemberRelationshipSpecialtyStart DateEnd Date Susan Watson MD [address] [place] [address] PCP - GeneralNurse Practitioner10/13/24documented as of this encounter
--- OUTSIDE RECORDS SUMMARY | 2025-06-30 14:08 | XMS_ITS | Encounter Summary ---
Author Organization [facility] Address [address] [place] [address] Care Team Providers Care [employer] Guidance Counselor Name Role Phone Susan Watson MD Primary Care Provider [phone] Reason for Visit * Auth/Cert (Routine)SpecialtyDiagnoses / ProceduresReferred By ContactReferred To Contact Diagnoses Rectal bleeding Procedures NO CODED SERVICE German Cabral MD [address] [place] [address] Phone: tel: fax: [facility] [[email or web address] Emergency [address] [place] [address] Phone: tel: fax: Referral IDStatusReasonStart DateExpiration DateVisits RequestedVisits [id number] Encounter Details DateTypeDepartmentCare Team (Latest Contact Info)Aarrldjtoeo10/19/2025 2:08 PM ESTAnesthesia Event [facility] Endoscopy [address] [place] [address] Melody Cortes MD [address] [facility] 2 [place] [address] Cyril Figueroa MD [address] [place] [address] Anesthesia Record Procedure NameResponsible AnesthesiologistAnesthesia Start TimeAnesthesia Stop TimeDIAGNOSTIC COLONOSCOPYMelody Cortes MD06/30/25 39851508/30/24 1427DateTime BlshfYdhqtte60/19/593484365272Xq Etlam3203Lr Start Ljiw8523Lp InductionThe patient was reevaluated immediately before moderate or deep sedation use and before anesthesia induction.1414Anesthesia Kyunn6986Ptub OutTime out completed (confirmed patient ID, surgeon, [...] mg/ml injection 2 %50 mgpropofol 10 mg/mL80.16 noNG059.32 mL * Agents Name O2 N2O Air [...] Date: 07/01/25; Removal Time:175; Removal Reason: Pt bthyuqpwad42/17/251855 by Yari Mccollum RN07/01/251749 by Meme Hickey IVPlacement Date: 06/29/25; Placement Time: 020; Catheter Size: 20 G; Orientation: Anterior, Right; Location: Forearm; Site Prep: Chlorhexidine ; Local Anesth: None; Technique: Ultrasound guidance; Inserted by: Daniel VAUGHN; Insertion Attempts: 1; Difficult Venous Access? Yes; Patient Tolerance: Tolerated well; Removal Date: 07/01/25; Removal Time: 175; Removal Reason: Pt qhzuzakdqz93/18/25 0201 by Daniel Thomson RN07/01/25 1750 by Catherine Ludwig RNClosed Skin Issue (NOT pressure injury)06/29/25; 1040; Y; Abrasion; Pretibial; Distal, Left, Anterior; 07/01/25; 48050508/29/24 1040 by Carmen Box RN07/01/25 2253 by Automatic Discharge Providerdocumented in this encounter Social History Tobacco UseTypesPacks/DayYears UsedDateSmoking Tobacco: FormerCigarettes Smokeless Tobacco: CurrentChewAlcohol UseStandard Drinks/WeekCommentsNot Currently0 (1 standard drink = 0.6 oz pure alcohol)PHQ-2AnswerDate Recorded Patient Health Questionnaire-2 Dcpbu15008/14/2024Humiliation, Afraid, Rape, and Kick questionnaireAnswerDate RecordedWithin the [...] times a week06/15/2025How often do you attend rastafari or roman catholic services?Never06/15/2025Do you belong to any clubs or organizations such as rastafari groups, unions, fraternal or athletic groups, or school groups?No06/15/2025How often do you attend meetings of the clubs or organizations you belong to?Never06/15/2025re you , , , , never , or living with a partner?Ipumspskr46/04/2025UDIT-C AnswerDate RecordedQ1: How often do you have [...] medical care, and heating?Not hard at all06/29/2025 [employer] - Occupational Stress Questionnaire AnswerDate RecordedDo you feel stress - tense, restless, nervous, or anxious, or unable to sleep at night because yourmind is troubled all the time - these days? Only a jsjvpt6306/15/2025HC UtilitiesAnswerDate RecordedIn the past 12 months has the [employer], gas, oil, or water company threatened to [...] were you homeless or living in a group home (including now)?No06/29/2025Hunger Vital SignAnswerDate Recorded Within the past 12 months, you worried that your food would run out before you got the money to buymore.Never true06/29/2025Within the past 12 months, the food you bought just didn't last and you didn't have money to get more.Never true 06/29/2025Sex and Gender InformationValueDate RecordedSex [facility] 04/08/20[facility] 7:15 AM EDTLegal LctEmyh6702/07/2022 10:15 PM EDTGender IdentityMale 04/08/2025 7:15 AM EDTSexual OrientationHeterosexual or Eycivpwv85/28/2025 7:15 AM EDTdocumented as of this encounter Plan of Treatment DateTypeDepartmentCare Team (Latest Contact Info)Hlosyfarylx93/08/2025 1:45 PM ESTFollow-[facility] [address] [place] [address] Nadia Sheppard PA-C [address] [facility], [address] [place] [phone] 07/22/2025 9:30 AM ESTFollow-[facility] [address] [place] [address] Sarah Tolliver MD [address] [facility] 1 [facility] [place] [phone] 07/29/2025 2:30 PM ESTFollow-Up [facility] [[email or web address]] [facility] Gastro[facility]ology [address] [facility] [place] [phone] Enantonia, Ebony, CAR FRAMER [address] [place], [place] [address] 08/23/2025 7:30 AM ESTHospital Encounter [facility] [[email or web address]] Main Operating Room [address] [place] [address] Chris Andre MD [address] [place] [address] 08/23/2025 7:30 AM EST - 08/23/2025 11:00 AM ESTSurgery [facility] [[email or web address]] Main Operating Room [address] [place] [address] Chris Andre MD [address] [place] [address] ENDARTERECTOMY, FEMORAL WITH POSSIBLE FEM TO POP XXDDLQ5509/21/2025 11:00 AM EST Follow-Up [facility] at [facility] Nephrology [address] [place] [address] Batsheva Beckwith MD [address] [facility] 2 [facility] [place] [address] NamePriorityAssociated DiagnosesDate/TimeENDARTERECTOMY, FEMORAL Peripheral arterial occlusive disease Encounter for pre-operative examination 08/23/2025 7:30 AM ESTdocumented as of this encounter Goals GoalPatient Goal TypeAssociated ProblemsRecent ProgressPatient-Stated?Author Blood Pressure < 140/90 Blood Blotvhjl752/78(07/06/2025 12:48 PM EST)Cy Child, JOHANAdocumented as of this encounter Visit Diagnoses Diagnosis Encounter for pre-operative examination- Primary Peripheral arterial occlusive disease Unspecified peripheral vascular disease Peripheral arterial occlusive disease Unspecified peripheral vascular disease Encounter for pre-operative examination * Anesthesia Postprocedure Evaluation - Melody Cortes MD - 06/30/2025 3:00 PM EST Patient: You Garcia Procedure Summary Date: 06/30/25 Room / Location: [facility] Anesthesia Start: 1408 Anesthesia Stop: 1426 [...] Kortney Gandhi MD Procedure: DIAGNOSTIC COLONOSCOPY Location: [facility] Relevant Problems Cardio (+) Atherosclerosis of arteries of extremities (+) CAD (coronary artery disease) of artery bypass graft (+) Coronary artery disease involving [place] coronary artery of [place] heart without angina pectoris (+) Coronary atherosclerosis [...] heart catheterization 05/11/2025 FINAL IMPRESSIONS: Severe, three-vessel [place] coronary artery disease There are 2 out [...] at 1418, Anesthesia Intraprocedure Given06/30/2025 2:18 PM YTB429 mLNew Bag06/30/2025 2:08 PM EST1 mL/hr1 mL/hr lidocaine HCl (Xylocaine) 20 mg/mL (2 %) injection intravenous, As needed, Starting on Sat06/30/25 at 1412, Anesthesia Intraprocedure Given06/30/2025 2:12 PM EST50 mg propofol (Diprivan) 10 mg/mL infusion intravenous, Continuous PRN, Starting on Sat06/30/25 at 1412, Anesthesia Intraprocedure Rate/Dose Pztsyh8106/30/2025 2:14 PM ITG397 mcg/kg/min70.92 mL/ceAkvpb3706/30/2025 2:13 PM EST25 mgNew Bag06/30/2025 2:12 PM AMO346 mcg/kg/min59.1 mL/hrdocumented in this encounter Care Teams Team MemberRelationshipSpecialtyStart DateEnd Date Susan Watson MD [address] [place] [address] PCP - GeneralNurse Practitioner10/13/24documented as of this encounter
--- OUTSIDE RECORDS SUMMARY | 2025-07-01 13:44 | XMS_ITS | Encounter Summary ---
Author Organization [facility] Address [address] [place] [address] Care Team Providers Care Food Order Expediter Name Role Phone Susan Watson MD Primary Care Provider [phone] Reason for Visit * Auth/Cert (Routine)SpecialtyDiagnoses / ProceduresReferred By ContactReferred To Contact Diagnoses Rectal bleeding Procedures NO CODED SERVICE German Cabral MD [address] [place] [address] Phone: tel: fax: [facility] Emergency [address] [place] [address] Phone: tel: fax: Referral IDStatusReasonStart DateExpiration DateVisits RequestedVisits [id number] Encounter Details DateTypeDepartmentCare Team (Latest Contact Info)Ezetlnfxwwo77/20/2025 1:44 PM ESTAnesthesia Event [facility] Endoscopy [address] [place] [address] Melody Cortes MD [address] [facility] [address] [place] [address] Bebe Livingston MD [address] [place] [address] Anesthesia Record Procedure NameResponsible AnesthesiologistAnesthesia Start TimeAnesthesia Stop TimeDIAGNOSTIC COLONOSCOPYMelody Cortes MD07/01/25 02872008/31/24 1443DateTime GfmmdCieieey91/20/884440311340Wc Iorug0885Do Start Jrju7717Gl InductionThe patient was reevaluated immediately before moderate or deep sedation use and before anesthesia induction.1349Anesthesia [id number] OutTime out completed (confirmed patient ID, surgeon, [...] (100 MCG/ML) IN 0.9 % SOD.CHLORIDE IV [id number] mcg * Agents Name O2 N2O Air [...] Date: 07/01/25; Removal Time:1750; Removal Reason: Pt vcsyqvecbm96/17/251855 by Yari Mccollum RN07/01/251749 by CHAMP Hickeyeripheral IVPlacement Date: 06/29/25; Placement Time: 200; Catheter Size: 20 G; Orientation: Anterior, Right; Location: Forearm; Site Prep: Chlorhexidine ; Local Anesth: None; Technique: Ultrasound guidance; Inserted by: Daniel VAUGHN; Insertion Attempts: 1; Difficult Venous Access? Yes; Patient Tolerance: Tolerated well; Removal Date: 07/01/25; Removal Time: 1749; Removal Reason: Pt jlpvxmqebz58/18/25 020 by Daniel Thomson RN07/01/25 1750 by Catherine Ludwig RNClosed Skin Issue (NOT pressure injury)06/29/25; 1040; Y; Abrasion; Pretibial; Distal, Left, Anterior; 07/01/25; 45167208/29/24 1040 by Carmen Box RN07/01/25 2253 by Automatic Discharge Providerdocumented in this encounter Social History Tobacco UseTypesPacks/DayYears UsedDateSmoking Tobacco: FormerCigarettes Smokeless Tobacco: CurrentChewAlcohol UseStandard Drinks/WeekCommentsNot Currently0 (1 standard drink = 0.6 oz pure alcohol)PHQ-2AnswerDate Recorded Patient Health Questionnaire-2 Gtxng30908/14/2024Humiliation, Afraid, Rape, and Kick questionnaireAnswerDate RecordedWithin the [...] week06/15/2025How often do you attend synagogue or baptist services?Never06/15/2025Do you belong to any clubs or organizations such as synagogue groups, unions, fraternal or athletic groups, or school groups?No06/15/2025How often do you attend meetings of the clubs or organizations you belong to?Never06/15/2025re you , , , , never , or living with a partner?Mbllfnhlq98/04/2025UDIT-C AnswerDate RecordedQ1: How often do you have [...] medical care, and heating?Not hard at all06/29/2025 [facility] [place] of Occupational Health - Occupational Stress Questionnaire AnswerDate RecordedDo you feel stress - tense, restless, nervous, or anxious, or unable to sleep at night because yourmind is troubled all the time - these days? Only a foxngr5906/15/2025HC UtilitiesAnswerDate RecordedIn the past 12 months has [...] Assigned at BirthMale 04/08/2025 7:15 AM EDTLegal YqvHzqf7502/07/2022 10:15 PM EDTGender IdentityMale 04/08/2025 7:15 AM EDTSexual OrientationHeterosexual or Wizozgnk89/28/2025 7:15 AM EDTdocumented as of this encounter Plan of Treatment DateTypeDepartmentCare Team (Latest Contact Info)Enltapodfly02/08/2025 1:45 PM ESTFollow-Up [facility] Vascular and Endovascular Surgery [address] [facility] [place] [address] Nadia Sheppard PA-C [address] [facility] [place] [address] 07/22/2025 9:30 AM ESTFollow-Up [facility] Heart at [facility] [address] [place] [address] Sarah Tolliver MD [address] [facility] [address] [facility] [place] [address] 07/29/2025 2:30 PM ESTFollow-Up [facility] Medical [facility]ilion Gastroenterology [address] [place] [phone] Enix, Ebony, RN RESEARCH [address] [place], [place] [id number] 08/23/2025 7:30 AM ESTHospital Encounter [facility] Main Operating Room [address] [place] [address] Chris Andre MD [address] [facility] [place] [address] 08/23/2025 7:30 AM EST - 08/23/2025 11:00 AM ESTSurgery [facility] Main Operating Room [address] [place] [address] Chris Andre MD [address] [place] [address] ENDARTERECTOMY, FEMORAL WITH POSSIBLE FEM TO POP NKJHUI2309/21/2025 11:00 AM EST Follow-Up [facility] at [facility] Nephrology [address] [place] [address] Batsheva Beckwith MD [address] [facility] 2 [facility] [place] [address] NamePriorityAssociated DiagnosesDate/TimeENDARTERECTOMY, FEMORAL Peripheral arterial occlusive disease Encounter for pre-operative examination 08/23/2025 7:30 AM ESTdocumented as of this encounter Goals GoalPatient Goal TypeAssociated ProblemsRecent ProgressPatient-Stated?Author Blood Pressure < 140/90 Blood Whxcjont059/78(07/06/2025 12:48 PM EST)Cy Child, JOHANAdocumented as of this encounter Visit Diagnoses Diagnosis Encounter for pre-operative examination- Primary Peripheral arterial occlusive disease Unspecified peripheral vascular disease Peripheral arterial occlusive disease Unspecified peripheral vascular disease Encounter for pre-operative examination * Anesthesia Postprocedure Evaluation - Melody Cortes MD - 07/01/2025 3:22 PM EST Patient: You Garcia Procedure Summary Date: 07/01/25 Room / Location: [facility] Invasive Surgery [place] [facility] Anesthesia Start: 1344 Anesthesia Stop: 1443 [...] Christie Horton MD Procedure: DIAGNOSTIC COLONOSCOPY Location: [facility] Surgery [place] [facility] Relevant Problems Cardio (+) Atherosclerosis of arteries of extremities (+) CAD (coronary artery disease) of artery bypass graft (+) Coronary artery disease involving [place] coronary artery of [place] heart without angina pectoris (+) Coronary atherosclerosis [...] heart catheterization 05/11/2025 FINAL IMPRESSIONS: Severe, three-vessel [place] coronary artery disease There are 2 out of 3 bypass graft patent; the saphenous vein graft to the posterior descending branch is known to be occluded Mildly reduced global left ventricular systolic function by noninvasive imaging Encounter Date: 05/11/25 Electrocardiogram, 12-lead Result Value Ventricular Rate 54 Atrial Rate 54 ID Interval 190 QRS DURATION 120 QT Interval 492 QTC CALCULATION(BAZETT) 466 P Wendell 36 R-Wendell -22 T Wave Wendell 95 Impression Sinus bradycardia Intra-ventricular conduction delay [...] 1344, Anesthesia Intraprocedure Given07/01/2025 1:55 PM EST25 poaTainq26/20/2025 1:52 PM EST50 mcgGiven 07/01/2025 1:44 PM [...] at 1408, Anesthesia Intraprocedure Given07/01/2025 2:23 PM GLG506 wmkDqhrb94/20/2025 2:15 PM JRX967 mcgGiven 07/01/2025 2:08 PM SJE324 mcg propofol (Diprivan) 10 mg/mL infusion intravenous, Continuous PRN, Starting on Lauren 07/01/25 at 1349, Anesthesia Intraprocedure Rate/Dose Wnkocv9507/01/2025 2:23 PM EST80 mcg/kg/min33.264 mL/hrNew Bag07/01/2025 1:49 PM FCF767 mcg/kg/min41.58 mL/hrdocumented in this encounter Care Teams Team MemberRelationshipSpecialtyStart DateEnd Date Susan Watson MD [address] [place] [address] PCP - GeneralNurse Practitioner10/13/24documented as of this encounter
--- OUTSIDE RECORDS SUMMARY | 2025-07-05 14:15 | XMS_ITS | Encounter Summary ---
Author Organization [facility] Address [address] [place] [address] Care Team Providers Care Mid Level Developer Name Role Phone Susan Watson MD Primary Care Provider [phone] Reason for Visit * ReasonCommentsFollow-up Encounter Details DateTypeDepartmentCare Team (Latest Contact Info)Xjmnklleujz45/24/2025 2:15 PM ESTFollow-Up [facility] Heart and Vascular Center Vascular and Endovascular Surgery [address] [place] [phone] Nadia Sheppard PA-C [address] [facility], [address] [place] [address] Postoperative wound dehiscence, subsequent encounter [...] times a week06/15/2025How often do you attend restorationist or taoism services?Never 06/15/2025Do you belong to any clubs or organizations such as restorationist groups, unions, [employer]Z Sports or athletic groups, or school groups?No06/15/2025How often do you attend meetings of the clubs or organizations you belong to?Never06/15/2025 Are you , , , , never , or living with a partner?Mszseeufu28/04/2025UDIT-CAnswerDate RecordedQ1: How often do you have a [...] housing, medical care, and heating?Not hard at all06/29/2025[facility] [place] of Occupational Health - Occupational Stress QuestionnaireAnswerDate RecordedDo you feel stress - tense, restless, nervous, or anxious, or unable to sleep at night because yourmind is troubled all the time - these days?Only a mpmhwb1606/15/2025HC UtilitiesAnswer Date RecordedIn the past 12 months has the [employer], gas, oil, or water company threatened to [...] were you homeless or living in a halfway (including now)?No06/29/2025 Hunger Vital SignAnswerDate RecordedWithin the past 12 months, you worried that your food would run out before you got the money to buymore.Never true06/29/2025 Within the past 12 months, the food you bought just didn't last and you didn't have money to get more.Never true06/29/2025Sex and Gender InformationValueDate RecordedSex Assigned at OqnikYyrr63/28/2025 7:15 AM EDTLegal JvhFkol4902/07/2022 10:15 PM EDTGender SdvfphcxSaxb51/28/2025 7:15 AM EDTSexual Orientation Heterosexual or Plhplocj80/28/2025 7:15 AM EDTdocumented as of this encounter Last Filed Vital Signs Vital SignReadingTime TakenCommentsBlood Vjuoqzmv124/7007/05/2025 2:07 PM EST Yxdci145607/05/2025 2:07 PM ESTTemperature--Respiratory Gsel910009/04/2024 2:07 PM ESTOxygen Hutoxmvzyy67%07/05/2025 2:07 PM ESTInhaled Oxygen Concentration-- Hupltm07.9 kg (152 lb)07/05/2025 2:07 PM SYNXipahj401.3 cm (5' 9 )07/05/2025 2:07 PM ESTBody [...] developed GI bleeding and was admitted to [facility] from 06/28 through 07/01 [...] Electronically signed by: Nadia Sheppard PA-C Physician Football Pad Repairer Vascular and Wound Surgery 07/05/2025 This note [...] Plan of Treatment DateTypeDepartmentCare Team (Latest Contact Info)Mxeutxblztw91/08/2025 1:45 PM ESTFollow-Up [facility] Heart and Vascular Center Vascular and Endovascular Surgery [address] [facility] [phone] Nadia Sheppard PA-C [address] [facility], [address] [place] [phone] 07/22/2025 9:30 AM ESTFollow-Up [facility] Heart at [facility] [address] [place] [address] Sarah Tolliver MD [address] [facility] [address] [facility] [place] [address] 07/29/2025 2:30 PM ESTFollow-Up [facility] Medical Pavilion Gastroenterology [address] [facility] [place] [phone] Ebony Estevez, VETERINARY LIVESTOCK INSPECTOR [address] [facility] [place], [place] [address] 08/23/2025 7:30 AM ESTHospital Encounter [facility] Main Operating Room [address] [place] [address] Chris Andre MD [address] [facility] [place] [address] 08/23/2025 7:30 AM EST - 08/23/2025 11:00 AM ESTSurgery [facility] Main Operating Room [address] [facility] [place] [phone] Chris Andre MD [address] [facility] [place] [address] ENDARTERECTOMY, FEMORAL WITH POSSIBLE FEM TO POP JETPYM5109/21/2025 11:00 AM EST Follow-Up [facility] at [facility] Nephrology [address] [place] [phone] Batsheva Beckwith MD [address] [facility] 2 [facility] [place] [address] NamePriorityAssociated DiagnosesDate/TimeENDARTERECTOMY, FEMORAL Peripheral arterial occlusive disease Encounter for pre-operative examination 08/23/2025 7:30 AM ESTdocumented as of this encounter Goals GoalPatient Goal TypeAssociated ProblemsRecent ProgressPatient-Stated?Author Blood Pressure < 140/90 Blood Iuwfdzvv870/78(07/06/2025 12:48 PM EST)Cy Child, RNdocumented as of [...] Susan Watson MD [address] [place] [address] PCP - GeneralNurse Practitioner10/13/24documented as of this encounter
--- OUTSIDE RECORDS SUMMARY | 2025-07-05 14:35 | XMS_ITS | Encounter Summary ---
Author Organization [facility] Address [address] [place] [address] Care Team Providers Care Children[employer] Zoo Caretaker Name Role Phone Susan Watson MD Primary Care Provider [phone] Encounter Details DateTypeDepartmentCare Team (Latest Contact Info)Unqxzbyyzbz94/24/2025 2:35 PM ESTLab [facility] Outpatient Draw Station [address] [place] [phone] Lower GI bleed Social History Tobacco UseTypesPacks/DayYears UsedDateSmoking Tobacco: FormerCigarettes Smokeless Tobacco: CurrentChewAlcohol UseStandard Drinks/WeekCommentsNot Currently0 (1 standard drink = 0.6 oz pure alcohol)PHQ-2AnswerDate Recorded Patient Health Questionnaire-2 Joake73408/14/2024Humiliation, Afraid, Rape, and Kick questionnaireAnswerDate RecordedWithin the [...] times a week06/15/2025How often do you attend judaism or baptist services?Never06/15/2025Do you belong to any clubs or organizations such as judaism groups, unions, fraternal or athletic groups, or school groups?No06/15/2025How often do you attend meetings of the clubs or organizations you belong to?Never06/15/2025re you , , , , never , or living with a partner?Syqotthjz42/04/2025UDIT-C AnswerDate RecordedQ1: How often do you have [...] medical care, and heating?Not hard at all06/29/2025 [place] of Occupational Health - Occupational Stress Questionnaire AnswerDate RecordedDo you feel stress - tense, restless, nervous, or anxious, or unable to sleep at night because yourmind is troubled all the time - these days? Only a tunypy8406/15/2025HC UtilitiesAnswerDate RecordedIn the past 12 months has the [employer], gas, oil, or water company threatened to [...] were you homeless or living in a mcc (including now)?No06/29/2025Hunger Vital SignAnswerDate Recorded Within the past 12 months, you worried that your food would run out before you got the money to buymore.Never true06/29/2025Within the past 12 months, the food you bought just didn't last and you didn't have money to get more.Never true 06/29/2025Sex and Gender InformationValueDate RecordedSex Assigned at BirthMale 04/08/2025 7:15 AM EDTLegal FssAhuc2802/07/2022 10:15 PM EDTGender IdentityMale 04/08/2025 7:15 AM EDTSexual OrientationHeterosexual or Celmfgnx48/28/2025 7:15 AM EDTdocumented as of this encounter Plan of Treatment DateTypeDepartmentCare Team (Latest Contact Info)Codhuwuhlyf33/08/2025 1:45 PM ESTFollow-Up [facility] Heart and Vascular Center Vascular and Endovascular Surgery [address] [place] [address] Nadia Sheppard PA-C [address] [facility], [address] [place] [phone] 07/22/2025 9:30 AM ESTFollow-Up [facility] Heart at [facility] [address] [place] [address] Sarah Tolliver MD [address] [facility] 1 [place] [phone] 07/29/2025 2:30 PM ESTFollow-Up [facility] Medical Pavilion Gastroenterology [address] [place] [phone] Enix, Ebony, ELECTRONIC COURT RECORDER [address] [facility] [place], [place] [address] 08/23/2025 7:30 AM ESTHospital Encounter [facility] Main Operating Room [address] [place] [address] Chris Andre MD [address] [facility] [place] [address] 08/23/2025 7:30 AM EST - 08/23/2025 11:00 AM ESTSurgery [facility] Main Operating Room [address] [place] [address] Chris Andre MD [address] [facility] [place] [address] ENDARTERECTOMY, FEMORAL WITH POSSIBLE FEM TO POP QKFQIC1509/21/2025 11:00 AM EST Follow-Up [facility] Nephrology [address] [place] [address] Batsheva Beckwith MD [address] [facility] 2 [facility] [place] [address] NamePriorityAssociated DiagnosesDate/TimeENDARTERECTOMY, FEMORAL Peripheral arterial occlusive disease Encounter for pre-operative examination 08/23/2025 7:30 AM ESTdocumented as of this encounter Goals GoalPatient Goal TypeAssociated ProblemsRecent ProgressPatient-Stated?Author Blood Pressure < 140/90 Blood Fvljigkj364/78(07/06/2025 12:48 PM EST)Cy Child, RNdocumented as of this encounter Procedures Procedure NamePriorityDate/TimeAssociated AhckuvcsrCtzvqnvsYHVGfdprse83/24/2025 1:47 PM EST Lower GI bleed BASIC METABOLIC SSZFUNmfwqtz75/24/2025 1:47 PM EST Lower GI bleed documented in this encounter Results * (ABNORMAL) CBC (07/05/2025 1:47 PM EST)ComponentValueRef RangeTest Method Analysis TimePerformed AtPathologist SignatureAuto WBC4.414.00 - 10.60 10*3/uL 07/05/2025 2:05 PM [facility] (BEAKER)RBC3.46(L)4.20 - 5.70 10*6/uL 07/05/2025 2:05 PM [facility] ([facility])Hxgpgywmod54.1(L)13.0 - 17.0 g/dL07/05/2025 2:05 PM [facility] ([facility])Dqlshrwrwt48.3(L)39.0 - 50.0 %07/05/2025 2:05 PM [facility] ([facility])MCV93.482.0 - 98.0 fL 07/05/2025 2:05 PM [facility] ([facility])MCH29.227.0 - 33.0 pg 07/05/2025 2:05 PM [facility] ([facility])MCHC31.3(L)32.0 - 35.0 g/dL 07/05/2025 2:05 PM [facility] ([facility])RDW15.1(H)11.5 - 15.0 % 07/05/2025 2:05 PM [facility] ([facility])Zhrbgrgmz122(L)150 - 400 10*3/uL07/05/2025 2:05 PM [facility] ([facility])Specimen (Source) Anatomical Location / LateralityCollection Method / VolumeCollection Time Received TimeBloodVenous blood specimen / UnknownVenipuncture / Unknown 07/05/2025 1:47 PM EST07/05/2025 1:54 PM EST Narrative Authorizing ProviderResult TypeResult StatusSukumaru Sammy Newsome MDLAB BLOOD ORDERABLESFinal ResultPerforming OrganizationAddressCity/State/ZIP CodePhone Number [facility] ([facility]) [address] [place] [address] * (ABNORMAL) Basic metabolic panel (07/05/2025 1:47 PM EST)ComponentValueRef RangeTest MethodAnalysis TimePerformed AtPathologist HyuvqrygaNijhge773437 - 145 mmol/L109/04/2024 2:18 PM [facility] ([facility])Potassium4.83.5 - 5.1 mmol/L109/04/2024 2:18 PM [facility] ([facility])Ojkocelg148(H)98 - 107 mmol/L109/04/2024 2:18 PM [facility] ([facility])II03186 - 31 mmol/L 07/05/2025 2:18 PM [facility] ([facility])OJW357 - 25 mg/dL07/05/2025 2:18 PM [facility] ([facility])Creatinine1.45(H)0.70 - 1.30 mg/dL 07/05/2025 2:18 PM [facility] ([facility])Lspbnwl4668 - 100 mg/dL 07/05/2025 2:18 PM [facility] ([facility])Calcium8.68.6 - 10.3 mg/dL 07/05/2025 2:18 PM [facility] ([facility])Anion Gap97 - 20 mmol/L 07/05/2025 2:18 PM [facility] ([facility])eGFR51.2(L)>60.0 mL/min/1.73m* 2:18 PM [facility] ([facility])Comment:[facility]???s estimated glomerular filtration rate (eGFR) will no [...] one group of individuals.BUN/Creatinine Ratio15. 2:18 PM [facility] ([facility])Specimen (Source)Anatomical Location / LateralityCollection Method / VolumeCollection TimeReceived TimeBloodVenous blood specimen / Unknown Venipuncture / Ofgqcxe6707/05/2025 1:47 PM EST07/05/2025 1:53 PM EST Narrative Authorizing ProviderResult TypeResult StatusFrench Newsome MDLAB BLOOD ORDERABLESFinal ResultPerforming OrganizationAddressCity/State/ZIP CodePhone Number [facility] ([facility]) [address] [place] [address] documented in this encounter Visit Diagnoses Diagnosis Encounter for pre-operative examination- Primary Peripheral arterial occlusive disease Unspecified peripheral vascular disease Lower GI bleed Unspecified, hemorrhage of gastrointestinal tract Peripheral arterial occlusive disease Unspecified peripheral vascular disease Encounter for pre-operative examination documented in this encounter Care Teams Team MemberRelationshipSpecialtyStart DateEnd Date Susan Watson MD [address] [place] [address] PCP - GeneralNurse Practitioner10/13/24documented as of this encounter
--- OUTSIDE RECORDS SUMMARY | 2025-07-06 13:00 | XMS_ITS | Encounter Summary ---
Author Organization [facility] Address [address] [place] [address] Care Team Providers Care Recreation Therapy Teacher Name Role Phone Susan Watson MD Primary Care Provider [phone] Reason for Visit * ReasonCommentsFollow-up1 Month Follow Up Encounter Details DateTypeDepartmentCare Team (Latest Contact Info)Xdqydqnawks54/25/2025 1:00 PM ESTFollow-Up [facility] Nephrology [address] [place] [phone] Batsheva Beckwith MD [address] [facility] 2 [facility] [place] [address] Chronic kidney disease, stage 3b (CMS/HCC) (Primary Dx); Electrolyte imbalance; Anemia due to stage 3b chronic kidney disease (CMS/HCC); Essential hypertension; HFrEF (heart failure with reduced ejection fraction) (CMS/HCC); Peripheral arterial occlusive disease; Kidney disease, chronic, stage IV (GFR 15-29 ml/min) (CMS/HCC); Hyperkalemia Social History Tobacco UseTypesPacks/DayYears UsedDateSmoking Tobacco: FormerCigarettes Smokeless Tobacco: CurrentChewAlcohol UseStandard Drinks/WeekCommentsNot Currently0 (1 standard drink = 0.6 oz pure alcohol)PHQ-2AnswerDate Recorded Patient Health Questionnaire-2 Igztw57408/14/2024Humiliation, Afraid, Rape, and Kick questionnaireAnswerDate RecordedWithin the [...] times a week06/15/2025How often do you attend gnosticism or worship services?Never06/15/2025Do you belong to any clubs or organizations such as gnosticism groups, unions, fraBrickTrends or athletic groups, or school groups?No06/15/2025How often do you attend meetings of the clubs or organizations you belong to?Never06/15/2025re you , , , , never , or living with a partner?Mvvknzwqf17/04/2025UDIT-C AnswerDate RecordedQ1: How often do you have [...] medical care, and heating?Not hard at all06/29/2025 Citizen Of [place] of Occupational Health - Occupational Stress Questionnaire AnswerDate RecordedDo you feel stress - tense, restless, nervous, or anxious, or unable to sleep at night because yourmind is troubled all the time - these days? Only a nmramu2506/15/2025HC UtilitiesAnswerDate RecordedIn the past 12 months has [...] were you homeless or living in a senior care (including now)?No06/29/2025Hunger Vital SignAnswerDate Recorded Within the past 12 months, you worried that your food would run out before you got the money to buymore.Never true06/29/2025Within the past 12 months, the food you bought just didn't last and you didn't have money to get more.Never true 06/29/2025Sex and Gender InformationValueDate RecordedSex Assigned at BirthMale 04/08/2025 7:15 AM EDTLegal PyxKqrh5302/07/2022 10:15 PM EDTGender IdentityMale 04/08/2025 7:15 AM EDTSexual OrientationHeterosexual or Aohxmvhj11/28/2025 7:15 AM EDTdocumented as of this encounter Last Filed Vital Signs Vital SignReadingTime TakenCommentsBlood Qgoeumoz487/7807/06/2025 12:48 PM EST Kzbst371907/06/2025 12:48 PM ESTTemperature--Respiratory Rate--Oxygen Saturation 97%07/06/2025 12:48 PM ESTInhaled Oxygen Concentration--Gqhbby28 kg (165 lb 4.8 oz)07/06/2025 12:48 PM WTPLhcpxk974.3 cm (5' 9 )07/06/2025 12:48 PM ESTBody Mass Index24.41109/05/2024 12:48 PM ESTdocumented in this encounter Progress Notes * Batsheva Beckwith MD - 07/06/2025 1:00 PM EST Images from the original note were not included. Nephrology Clinic Patient: You Garcia; 70 y.o. Visit date: 07/06/25 Reason for today's visit: Follow up CKD Stage IV SUBJECTIVE: History Of Present Illness: You Garcia is a 70 y.o. male Here to establish care for Stage IV CKD. He has Stage 3B/ 4 CKD noted 5 years ago for the first time, and since then Cr has been 1.9 and now to 2.2 range. He has no proteinuria/ microalbuminuria in urine check in October 2024. And, he has no hematuria on urine tests in October 2024. Most recently 2 days ago, Cr is 2.2 with a potassium of 5.5. His diet is high in potatoes / spanish fries. We discussed low potassium diet in detail today. We discussed Lokelma to be used as directed for a potassium of > 5.5. Will repeat potassium/ BMP today. He has CHF with reduced EF 40-45% s.p left heart cath , CAD s/p CABG, PAD, COPD, HLD, follows with Cardiology (Dr. Garcia) and Vascular (Dr. Andre). He has ongoing LE pain in both legs and is planned for right femoral to above knee popliteal bypass with graft and Left LE angiogram with possible intervention on June 07 2025. He is on aspirin, plavix, statin, and raulito inhibitor. He is not onEntresto, Aldactone, or SGLT2i. We discussed risks of contrast dye that inevitably will be used forvascular procedures. He is at moderate to high risk of contrast induced kidney injury due to HFrEF,peripheral arterial disease, and longstanding CKD. He is not volume overloaded now so he can be given some fluids pre contrast ~500ml NS but would avoid giving more than 1L given reduced EF and diastolic dysfunction on ECHO. I have asked him to hold Lisinopril on day of surgery and 2 days after dueto risk of KELLIE and hyperkalemia. BP today is 122/70, he takes Lisinopril 10mg daily, Amlodipine 5mg daily and Metoprolol 12.5mg BID.Depending on repeat potassium we may have to hold Lisinopril until potassium returns to normal range. Once potassium is normalized it is acceptable to start Entresto and SGLT2i for CHF, his GFR is > 25. No recent renal imaging is done, in 2019 renal US showed normal sized kidneys and a simple cyst on the right kidney. Repeat Renal US with dopplers given history of tobacco use and peripheral arterialdisease. Blood pressure well controlled, no hypervolemic on exam. 07/06/25 He is here for follow up for Stage III/IV CKD. He also has CHF with reduced EF, CAD and peripheral arterial disease s/p RLE endarterectomy and fem-popliteal bypass on 06/07/25. After there were complications of wound dehiscence for which he received IV antiobiotics from 06/15-06/19 and then discharged on Bactrim till 06/27/25. He then developed a GI bleed and was admitted from 06/28-07/01. He restarted Xarelto and is also on Plavix. He continues to have pain in the left leg and is scheduled for vascular intervention in August 2024. He did labs on 07/05/25: Cr 1.45 stable, GFR 51.1 consistent with Stage III CKD and better than Cr of 2.03 earlier in June. K 4/8. CO2 24, Na 141, Ca 8.6, BUN 22. HGB 11.3. Reviewed medications and labs. Review of Systems Cardiovascular: Negative for leg swelling. Left leg claudication All other systems reviewed and are negative. OBJECTIVE: Visit Vitals BP 128/78 (BP Location: Left arm, Patient Position: Sitting, BP Cuff Size: Adult) Pulse 68 Ht 1.753 m (5' 9 ) Wt 75 kg (165 lb 4.8 oz) SpO2 97% BMI 24.41 kg/m?? Smoking Status Former BSA 1.91 m?? Physical Exam Vitals reviewed. Constitutional: General: He is not in acute distress. Appearance: Normal appearance. He is not ill-appearing. HENT: Head: Normocephalic and atraumatic. Right Ear: External ear normal. Left Ear: External ear normal. Nose: Nose normal. Mouth/Throat: Mouth: Mucous membranes are moist. Eyes: General: No scleral icterus. Extraocular Movements: Extraocular movements intact. Conjunctiva/sclera: Conjunctivae normal. Cardiovascular: Rate and Rhythm: Normal rate and regular rhythm. Heart sounds: No murmur heard. Pulmonary: Breath sounds: No wheezing, rhonchi or rales. Abdominal: Palpations: Abdomen is soft. Tenderness: There is no abdominal tenderness. There is no right CVA tenderness or left CVA tenderness. Musculoskeletal: Right lower leg: No edema. Left lower leg: No edema. Skin: Coloration: Skin is not jaundiced or pale. Findings: No lesion. Neurological: General: No focal deficit present. Mental Status: He is alert and oriented to person, place, and time. Motor: No weakness. Gait: Gait normal. Psychiatric: Mood and Affect: Mood normal. Behavior: Behavior normal. Thought Content: Thought content normal. Judgment: Judgment normal. Recent Labs I have reviewed the patient's most recent labs as listed below: Chemistry: Lab Results Component Value Date/Time NA 141 07/05/2025 1347 K 4.8 07/05/2025 1347 CL 113 (H) 07/05/2025 1347 CO2 24 07/05/2025 1347 CO2 26 10/08/2019 0720 BUN 22 07/05/2025 1347 CREATININE 1.45 (H) 07/05/2025 1347 EGFR 51.2 (L) 07/05/2025 1347 GLU 100 10/08/2019 0720 CALCIUM 8.6 07/05/2025 1347 MG 1.9 06/25/2025 1529 PHOS 3.0 06/25/2025 1529 PTH 39 05/26/2025 1454 ALBUMIN 3.5 06/29/2025 0545 PROT 5.9 (L) 06/29/2025 0545 AST 49 (H) 06/29/2025 0545 ALT 45 06/29/2025 0545 BILITOT 1.1 (H) 06/29/2025 0545 ALKPHOS 187 (H) 06/29/2025 0545 Hematology: Lab Results Component Value Date WBC 4.41 07/05/2025 HGB 10.1 (L) 07/05/2025 HCT 32.3 (L) 07/05/2025 MCV 93.4 07/05/2025 PLT 125 (L) 07/05/2025 Urine studies: Lab Results Component Value Date PROTUR Negative 05/26/2025 CREATUR 24.0 (L) 05/26/2025 CREATUR 24.0 (L) 05/26/2025 MICROALBCREA 05/26/2025 Comment: Unable to calculate MICROALBUR <1 05/26/2025 COLORU Light-Yellow 05/26/2025 SPECGRAVU 1.004 (L) 05/26/2025 BLOODU Negative 05/26/2025 WBCU None Seen 05/26/2025 LEUKOCYTESU Negative 05/26/2025 NITRITEU Negative 05/26/2025 HOME MEDICATIONS & PAST MEDICAL/SOCIAL/FAMILY HISTORY: Home medications Encounter Medications[1] Allergies Patient has no known allergies. Past Medical History has a past medical history of Anxiety, Atherosclerosis of arteries of extremities, Cancer ([facility]), Chronic kidney disease, stage 4 (severe) ([facility]), Coronary artery disease, Depression, Dyspnea on exertion, Emphysema lung ([facility]), Frequent falls, GERD (gastroesophageal reflux disease), Hyperli pidemia, Hypertension, Intermittent claudication, MCI (mild cognitive impairment), Migraine, Mitralregurgitation, PAD (peripheral artery disease), Peripheral arterial occlusive disease, Pulmonary hyperinflation, and Sleep apnea. Surgical History has a past surgical history that includes Cardiac catheterization; Coronary artery bypass graft; Colonoscopy; Cataract extraction; Lung biopsy; Lung removal, partial; and Femoral bypass (Right). Social History reports that he has quit smoking. His smoking use included cigarettes. His smokeless tobacco use includes chew. He reports that he does not currently use alcohol. He reports that he does not use drugs. Family History Family History[2] ASSESSMENT & DIAGNOSES: 1. Chronic kidney disease, stage 3b ([facility]) 2. Electrolyte imbalance 3. Anemia due to stage 3b chronic kidney disease ([facility]) 4. Essential hypertension 5. HFrEF (heart failure with reduced ejection fraction) ([facility]) 6. Peripheral arterial occlusive disease 7. Kidney disease, chronic, stage IV (GFR 15-29 ml/min) ([facility]) 8. Hyperkalemia PLAN & DISCUSSION He has Stage 3B/ 4 CKD noted 5 years ago for the first time, Cr currently is in 1.4-1.8 range. He has CHF with reduced EF 40-45% s.p left heart cath , CAD s/p CABG, PAD s/p RLE fem-pop bypass and planned for left LE intervention, COPD, HLD, follows with Cardiology (Dr. Garcia) and Vascular (Dr. Andre). He is not on Entresto, Aldactone, or SGLT2i. We discussed risks of contrast dye that inevitably will be used for vascular procedures. He is at moderate to high risk of contrast induced kidney injury due to HFrEF, peripheral arterial disease, and longstanding CKD. He is not volume overloaded now so he can be given some fluids pre contrast ~500ml NS but would avoid giving more than 1L given reducedEF and diastolic dysfunction on ECHO. BP today is 128/78, he is taking Metoprolol 50mg BID. Not currently on Lisinopril (held in hospital) and not currently on Amlodipine. It is OK to start SGLT2i and Entresto for GDMT if K 4-4.5. Recommend to start after procedures are completed. Lokelma 10g PO three times a week given and will direct him to take it if repeat labs show K > 5.5. Discussed low K diet. Mild anemia, HGB 11.3 range. Will continue to monitor. Orders Placed This Encounter Procedures PTH, intact Uric acid Protein, urine, random Creatinine, urine, random Urinalysis with microscopic CBC Phosphorus Magnesium Basic metabolic panel Requested Prescriptions Signed Prescriptions Disp Refills sodium zirconium cyclosilicate (Lokelma) 10 gram packet 120 g 0 Sig: Take 10 g by mouth 3 (three) times a week. No images are attached to the encounter or orders placed in the encounter. FOLLOW UP: 3 months Batsheva Beckwith MD Faculty, Division of Nephrology, Department of Medicine [facility]. [1] Outpatient Encounter Medications as of 07/06/2025 Medication Sig Dispense Refill acetaminophen (Tylenol Extra Strength) 500 mg tablet Take 2 tablets (1,000 mg) by mouth every 6 (six) hours if needed for moderate pain (4-7 pain score). 30 tablet 0 albuterol 90 mcg/actuation inhaler INHALE 1 PUFF BY MOUTH EVERY 4 HOURS NEEDED [Paused] amLODIPine (Norvasc) 5 mg tablet Take 1 tablet by mouth two times daily. (Patient not taking: Reported on 07/05/2025) aspirin 81 mg EC tablet Take 1 [...] 20 mg by mouth twice a day. fenofibrate micronized (Antara) 43 mg capsule Take 1 capsule by mouth in the morning and at bedtime. adxbgvzoxzg-kppajbyxk-yzdpkbbk (Trelegy Ellipta) 100-62.5-25 mcg blister with device Inhale 1 puff in the morning. metoprolol tartrate (Lopressor) 50 mg tablet Take 50 mg by mouth two times daily. nitroglycerin (Nitrostat) 0.4 mg SL tablet OLANZapine (ZyPREXA) 5 mg tablet Take 5 mg by mouth at bedtime. rivaroxaban (Xarelto) 2.5 mg tablet Take 1 tablet (2.5 mg) by mouth two times daily for 197 doses. 90 tablet 1 sertraline (Zoloft) 100 mg tablet Take 2 tablets by mouth in the morning. [START ON 07/07/2025] sodium zirconium cyclosilicate (Lokelma) 10 gram packet Take 10 g by mouth 3 (three) times a week. 120 g 0 traZODone (Desyrel) 100 mg tablet Take 1 tablet by mouth at bedtime. [DISCONTINUED] atorvastatin (Lipitor) 80 mg tablet Take 80 mg by mouth at bedtime. [DISCONTINUED] famotidine (Pepcid) 20 mg tablet Take 20 mg by mouth two times daily. [DISCONTINUED] sodium bicarbonate 650 mg tablet Take 1 tablet (650 mg) by mouth in the morning for 5 days. 5 tablet 0 [DISCONTINUED] sodium bicarbonate 650 mg tablet Take 2 tablets (1,300 mg) by mouth two times daily for 2 days, THEN 1 tablet (650 mg) two times daily for 5 days. 18 tablet 0 [DISCONTINUED] sodium zirconium cyclosilicate (Lokelma) 10 gram packet Take 10 g by mouth 3 (three)times a week. (Patient taking differently: Take 10 g by mouth every other day.) 120 g 3 [DISCONTINUED] sulfamethoxazole-trimethoprim (Bactrim DS) 800-160 mg tablet Take 1 tablet by mouth every 12 (twelve) hours for 7 days. 14 tablet 0 No facility-administered encounter medications on file as of 07/06/2025. [2] Family History Problem Relation Name Age of Onset Diabetes Mother Elizabeth documented in this encounter Plan of Treatment DateTypeDepartmentCare Team (Latest Contact Info)Hcqxumrxfzq71/08/2025 1:45 PM ESTFollow-Up [facility] Vascular and Endovascular Surgery [address] [place] [phone] Nadia Sheppard PA-C [address] [place], [address] [facility] [place] [phone] 07/22/2025 9:30 AM ESTFollow-Up [facility] at [facility] [address] [place] [address] Sarah Tolliver MD [address] [facility] [address] [facility] [place] [address] 07/29/2025 2:30 PM ESTFollow-Up [facility] [address] [facility] [address] [place] [phone] Ebony Estevez CNP [address] [place] [address] 08/23/2025 7:30 AM ESTHospital Encounter [facility] Main Operating Room [address] [address] Chris Andre MD [address] [phone] 08/23/2025 7:30 AM EST - 08/23/2025 11:00 AM ESTSurgery [facility] Main Operating Room [address] [place] [address] Chris Andre MD [address] [place] [phone] ENDARTERECTOMY, FEMORAL WITH POSSIBLE FEM TO POP ZURAJW3509/21/2025 11:00 AM EST Follow-Up [facility] Nephrology [address] [place] [phone] Batsheva Beckwith MD [address] [facility] 2 [facility] [place] [address] NameTypePriorityAssociated DiagnosesOrder SchedulePTH, intactLabRoutine Chronic kidney disease, stage 3b (CMS/HCC) Expected: 07/06/2025 (Approximate), Expires: 07/06/2026Uric acidLabRoutine Chronic kidney disease, stage 3b (CMS/HCC) Expected: 07/06/2025 (Approximate), Expires: 07/06/2026Protein, urine, randomLab Routine Chronic kidney disease, stage 3b (CMS/HCC) Expected: 07/06/2025 (Approximate), Expires: 07/06/2026reatinine, urine, random LabRoutine Chronic kidney disease, stage 3b (CMS/HCC) Expected: 07/06/2025 (Approximate), Expires: 07/06/2026Urinalysis with microscopicLabRoutine Chronic kidney disease, stage 3b (CMS/HCC) Expected: 07/06/2025 (Approximate), Expires: 07/06/2026BCLabRoutine Chronic kidney disease, stage 3b (CMS/HCC) Expected: 07/06/2025 (Approximate), Expires: 07/06/2026PhosphorusLabRoutine Chronic kidney disease, stage 3b (CMS/HCC) Expected: 07/06/2025 (Approximate), Expires: 07/06/2026MagnesiumLabRoutine Chronic kidney disease, stage 3b (CMS/HCC) Expected: 07/06/2025 (Approximate), Expires: 07/06/2026asic metabolic panelLab Routine Chronic kidney disease, stage 3b (CMS/HCC) Expected: 07/06/2025 (Approximate), Expires: 07/06/2026NamePriorityAssociated DiagnosesDate/TimeENDARTERECTOMY, FEMORAL Peripheral arterial occlusive disease Encounter for pre-operative examination 08/23/2025 7:30 AM ESTdocumented as of this encounter Goals GoalPatient Goal TypeAssociated ProblemsRecent ProgressPatient-Stated?Author Blood Pressure < 140/90 Blood Ewwonqlp975/78(07/06/2025 12:48 PM EST)Cy Child, RNdocumented as of this encounter Visit Diagnoses Diagnosis Encounter for pre-operative examination- Primary Peripheral arterial occlusive disease Unspecified peripheral vascular disease Chronic kidney disease, stage 3b ([facility])- Primary Electrolyte imbalance Electrolyte and fluid disorders not elsewhere classified Anemia due to stage 3b chronic kidney disease ([facility]) Essential hypertension Unspecified essential hypertension HFrEF (heart failure with reduced ejection fraction) ([facility]) Peripheral arterial occlusive disease Unspecified peripheral vascular disease Kidney disease, chronic, stage IV (GFR 15-29 ml/min) ([facility]) Hyperkalemia Hyperpotassemia Peripheral arterial occlusive disease Unspecified peripheral vascular disease Encounter for pre-operative examination documented in this encounter Care Teams Team MemberRelationshipSpecialtyStart DateEnd Date Susan Watson MD [address] [place] [address] PCP - GeneralNurse Practitioner10/13/24documented as of this encounter
[2025-07-12] VITALS (14 sets, daily range): BP systolic 116–138; BP diastolic 68–90; PULSE 66–89; TEMP 36.9; O2SAT 93–96; BMI 26.1
--- OUTSIDE RECORDS SUMMARY | 2025-07-12 07:43 | XMS_ITS | Continuity of Care Document ---
Author Organization [facility] Address [address] [place] [address] Phone Care Team Providers Care Insurance Commissioner Name Role Phone NON STAFF Primary Care Provider UnavailSarah Montiel A Attending Provider Susan Watson NP-C Primary Care Provider Provider, Outside Attending Provider Unavailable Susan Watson NP-C Attending Provider Care Teams Patient Care Team Team Status: Active Member Role/Relationship Status Dates Susan Watson NP-Ben Primary Care Provider Active Visit Care Team Team Status: Active Member Role/Relationship Status Dates NON STAFF Primary Care Provider Active Start: April 17, 2025 Sarah Beckerttending ProviderActiveStart: April 17, 2025 Visit Care Team Team Status: Active Member Role/Relationship Status Dates ROGE Morales Primary Care Provider Active Start: May 04, 2025 Outside ProviderAttending ProviderActiveStart: May 04, 2025 Visit Care Team Team Status: Inactive Member Role/Relationship Status Dates ROGE Morales Primary Care Provider Active Start: July 12, 2025 End: July 12, 2025Alvin Morales ProviderActiveStart: July 12, 2025 End: July 12, 2025 Chief Complaint and Reason for Visit Chief Complaint Admit Date GO OVER MEDS July 12, 2025 1 1:36am Reason for Visit Admit Date CAD (coronary artery disease) of artery bypass graft July 12, 2025 11:36am Cervical spondylosis July 12, 2025 11:36am Chronic diastolic heart failure July 12, 2025 11:36am Chronic kidney disease, stage 4 (severe) July 12, 2025 11:36am COPD (chronic obstructive pulmonary dise ase) July 12, 2025 11:36am Dyspnea July 12, 2025 1 1:36am EDITH (generalized anxiety disorder) Decem 2024 11:36am GERD without esophagitis July 12, 025 11:36am Hypertensive chronic kidney disease with stage 1 through stage 4 chronic ki July 12, 2025 11:36am MCI (mild cognitive impairment) July 12, 2025 11:36am Mixed hyperlipidemia July 12, 2025 11:36am Allergies, Adverse Reactions, Alerts Allergen Type Severity Reaction Last Updated Verified Status No Known Allergies Allergy Unknown January 19, 2025 10:58amYesActive Social History Smoking Status Status Start Date End Date Date of Observa tion Ex-smoker (finding) October 27, 2024 4:02pm Observation Status Observation Response Date of Response Legal Sex Male (finding) Sex Assigned At BirthMaleSeptember 1954 Family History Relationship Condition Age at Onset Recorded Date/T yanique mother Hypertension Unknown Diabetes mellitusUnknownfatherMedical history unknownUnknownbrotherHeart disease UnknowndaughterFamily history of mental disorderUnknownfatherDeceasedUnknown family memberDeceasedUnknownmotherHypertensionUnknownFamily history of mental disorderUnknownDiabetes mellitusUnknownDeceasedUnknownsisterDiabetes mellitus Unknown Problems Active Problems Problem Diagnosis/Recorded Date Onset Date Status C omments Frequent falls May 25, 2025 4:34pm Unknown Active Chronic kidney disease, stage 3bMarch 2023 2:30pmUnknownActiveGAD (generalized anxiety disorder)May 25, 2025 4:35pmUnknownActiveGI bleeding July 12, 2025 12:20pmUnknownActiveAtherosclerosis of arteries of extremitiesOctober 2024 4:32pmUnknownActiveChronic kidney disease, stage 4 (severe)May 25, 2025 4:33pmUnknownActiveHistory of lung cancerOctober 2024 4:35pmUnknownActiveAnemiaMarch 2023 3:49pmUnknownActivePulmonary HTNOctober 2024 4:36pmUnknownActiveClosed nondisplaced fracture of greater tuberosity of left humerus with routine healingOctober 2024 4:33pmUnknown ActiveHypertensive chronic kidney disease with stage 1 through stage 4 chronic kidney disease, or unspecified chronic kidney diseaseMarch 2023 2:30pm UnknownActiveDyspneaMarch 2019 2:06pmUnknownActiveProblem List clean-up per request of Phys. EHR CmteHyperlipemiaMar 2023 2:35pmUnknownActive Mixed hyperlipidemiaOctober 2024 4:36pmUnknownActiveChronic diastolic heart failureOctober 2024 4:32pmUnknownActiveCAD (coronary artery disease) of artery bypass graftMar 2023 2:30pmUnknownActiveFunctional gait abnormalityOctober 2024 4:35pmUnknownActiveCervical spondylosisOctober 2024 4:32pmUnknownActiveMCI (mild cognitive impairment)May 25, 2025 4:35pmUnknownActiveGERD without esophagitisOctober 2024 4:35pmUnknown ActiveCOPD (chronic obstructive pulmonary disease)May 25, 2025 4:33pm UnknownActiveNeck painOctober 2024 4:36pmUnknownActiveTraumatic complete tear of left rotator cuffOctober 2024 4:37pmUnknownActiveHyperkalemiaMarch 2023 2:30pmUnknownActiveInactive/Resolved Problems Problem Diagnosis/Recorded Date Onset Date Status C omments Ventral hernia September 30, 2020 1:21pm Unknown Resol nadiya Problem List clean-up per request of Phys. EHR Cmte Sigmoid diverticulitis April 09, 2023 1:51pm Unknown Resolved Medications Medication Status Dose Units Route Directions Qty Days Refills S tart Date Stop Date End Date Reason(s) Instructions Adherence Fenofibrate Micronized 43 mg capsule Discontinued 43 MG PO Daily June 23, 2025 12:57pmNov2024 12:58pmMixed hyperlipidemia Mixed hyperlipidemia hyperlipidemiaFenofibrate Micronized 43 mg yybdptdKduqar22SOCZXgkyl973Dycupfbi 2024 12:57pmMixed hyperlipidemia Mixed hyperlipidemia hyperlipidemiaComplies with drug therapyMultivitamin VfwfnhIcsqsv5NHQLEIhcpy September 13, 2020 12:00amComplies with drug therapyAlbuterol Sulfate 90 mcg/actuation HFA aerosol ssqljfqMjwnfj08LDORNSPRVDQUHF4P as needed for Shortness Of BreathFebruary 2020 12:00amComplies with drug therapyBuspirone 15 mg dtrojzNmjgev11GWQWEqwom dailyFebruary 2020 12:00amanxietyComplies with drug therapyOmega-3 Fatty Acids SwufnmsCjzywq8282NMMRRuzipLvolnbsw 2020 12:00amComplies with drug therapyFluticasone Furoate-Vilanterol (Breo Ellipta) 100-25 mcg/dose blister with vixpevSdclzdxjasyj3PAVYPBMPBKHAIYbfnq September 13, 2020 12:00amMarch 2023 4:02pmshortness of breathTramadol (Ultram) 50 mg zfigwxZcuxqjwgrllu95HSXBR3J as needed for tzaj1373Zseqsogg 2020 12:00amMarch 2023 4:00pmVentral hernia Ventral hernia without obstruction or gangrene1/2 - 1 tab po q 6 hours prn pain Atorvastatin 80 mg XgtvugXbsttd13GPTLGxhnbPpjcf 2019 11:00pmhyperlipidemia Complies with drug therapyMetoprolol Succinate 50 mg Tablet Extended Release 24 NhXosoczkkshct91ESLSSpslnOlfry 2019 11:00pm[facility] 2023 3:59pm Sertraline 100 mg VlblpoXeprezfauzqk498CSGQYoxjbHbqjb 2019 11:00pm[facility] 2023 4:02pmdepressionOlanzapine 5 mg OnwrvnJstpmoayyeyw9FPURLcqrw at bedtimeOhiohealth [facility] 2019 11:00pm[facility] 2023 4:01pmdepressionClopidogrel 75 mg NrfobvOxjfketvzqqu21CAYUGjnfkYxwjw 2019 11:00pmAuunm [facility]2023 12:03pm anticoagulationAmlodipine 5 mg XqhkbbEjlbcfwtywuw0MKRXTlxtkCijfd 2019 11:00pmMar 2023 4:03pmhtnAspirin 81 mg Tablet,Delayed Release (Dr/Ec) Fmkqib87XFZOXeubpLqesh 2019 11:00pmMI preventionComplies with drug therapy Bupropion Hcl 100 mg Tablet Sustained-Release 12 PaIjehyocdnaja492GJPRLzipePnefs 2019 11:00pmOhio[facility] 2023 3:57pmdepressionIsosorbide Mononitrate 60 mg Tablet Extended Release 24 XqCwvixk06QUPPXngzsJlnqm 2019 11:00pmComplies with drug therapyFamotidine 20 mg MfkaiyOirvapvpcqbw85WTMWXhran at bedtime as needed for Gastric RefluxMar 2019 11:00pmFebruary 2020 3:47pm Trazodone 100 mg CwvefuSlhrurbgcmgg730JRFYYqjdj at bedtimeOhiohealth [facility] 2019 11:00pmV[facility]ch 2023 10:36amNitroglycerin 0.4 mg Tablet, SublingualActive0.4 MGSUBLINGUALevery 5 to 15 minutes as needed for Chest PainMar 2019 11:00pmComplies with drug therapyBuspirone 15 mg YlhzayUrmwigblwbsc45KRHPFzmrl dailyOhiohealth [facility] 2019 11:00pmFebruary 2020 3:49pmdepressionBupropion Hcl 200 mg Tablet Sustained-Release 12 ThPchfucdjefjk357AXIIEbizsMmyfq 2019 11:00pmOhio[facility] 2023 3:57pmdepressionFenofibrate Micronized 43 mg Capsule Vvcklmfppvyy52CSONFezoy dailyOhiohealth [facility] 2019 11:00pmNovember 2024 12:57pm hyperlipidemiaAmlodipine 5 mg klfagbUiyutlqxugwj4GGRAGvgpl dailyOhiohealth [facility] 2023 3:56pmDeceer 2024 12:07pmhtnAmoxicillin-Pot Clavulanate 875-125 mg tablet Kdpeqgmuqvlk5IDISVTgmxo fhfvs620Qmdeis 2022 11:00pmOhio[facility] 2023 3:56pm Famotidine 20 mg adtiuvNwgqin28ZFLNSfiyb as neededOhiohealth Nelsonville [facility] Center 2023 12:00am FreeTextSig: TAKE 1 TABLET BY MOUTH EVERY DAY AT BEDTIME NEEDED; Note: Source Status: Unknown; Refills: 1; Qty: 90 delayed release tablet; Provider: Mabel Ashley with drug therapyBupropion Hcl 300 mg tablet extended release 24 hdOugqfk250XVSVLbjtgJxwul 2023 12:00amFreeTextSi tablet in the morning Orally Once a day; Note: Source Status: Unknown; Refills: 0; Provider: Genesis GuzmanComplies with drug therapyNitroglycerin 0.4 mg tablet, sublingual Zlrbogcolaff1RUHOQNIVCWVWJIPBG 5 MINUTESVirtua [facility]2023 12:00amMarch 2023 4:14pmFreeTextSi Sublingual Every 5min x3; Note: Source Status: UnknownPRN; Provider: Guy MelissaSertraline 100 mg ybkfscDulijzuxsinh228HJZTNkovlHfzeg 2023 12:00amOctmiddlesboro arh hospital 2024 6:51amFreeTextSi.5 tablet Orally Once a day; Note: Source Status: Unknown; Refills: 0; Provider: Genesis WilkinsamOlanzapine 7.5 mg tabletDiscontinued7.5MGPODailyOhiohealth Nelsonville [facility] Center 2023 12:00amMarc 2024 3:01pm FreeTextSi tablet Orally Once a day; Note: Source Status: Unknown; Refills: 0; Provider: Genesis GuzmanYxcgocUvytuhdlnhg-Lelrpfzsy-Soqhwofc (Trelegy Ellipta) 100-62.5-25 mcg blister with pfqobfEtfuan8DYYKRZRKZBCBTTqnetNckwr 2023 12:00amComplies with drug therapyMetoprolol Succinate 50 mg tablet extended release 24 goLdakshuldwpn52IWVJAeztbCecaf 2023 12:00amOctmiddlesboro arh hospital 2024 6:47amSertraline 100 mg dvhhgwKusvbu319GEDFFdemiRjxsqdb 2024 6:48am Complies with drug therapyClopidogrel 75 mg eirhjzHtozpf07ICFGCwzbtGpxmtra 2024 11:00pmComplies with drug therapyMetoprolol Tartrate 50 mg zlskqpKsfxlf32BM POTwice dailyOctober 2024 11:00pmComplies with drug therapyTrazodone 100 mg pnwneiUvvhjf700RPSJZjdbn at bedtimeAugust 2023 11:00pmComplies with drug therapyFerrous Sulfate 325 mg (65 mg iron) cftxsfXdbnes356YBMUaeuvk457Ykhd 2024 11:00pmUnknownOlanzapine 5 mg lclvaiWkstej5RQPTJclmePgyi 2024 11:00pmComplies with drug therapy Immunizations Immunization Event Date Not Given Reason Dose Number [employer] Lot Number Reason(s) Given Vaccine Information Statement (VIS) Detail Administration Location COVID-19 mRNA, Comirnaty (ClearFit) October 19 COVID-19 mRNA, Comirnaty (ClearFit)November 08OVID-19 mRNA, ComirAudiosocket (ClearFit)August 06, 2021influenza, unspecified formulationDecember 2019 influenza, unspecified formulationOctober neumococcal Conjugate Vaccine, 13 valentJanuary 2019Pneumococcal Polysacc. Vaccine, 23 valent August 03, 2020 Medical Equipment Device Date Implanted Device Details Abdominal hernia surgical me sh, composite-polymer September 30, 2020 ERMA: [id number] Issuing Agency: [facility] Device Id: [id number] Expiration Date: 2022-01-06 Lot Number: [id number] Relevant Diagnostic Tests and/or Laboratory Data Laboratory Results Test Collection Date/Time Result Date/Time Result Interpretation Reference Range Result Comment Performing Site Anion Gap April 17, 2025 8:30am April 17, 2025 8:30am 12.0 Basophils # (Auto)May 04, 2025 2:27pmSeptember 2024 2:27pm0.0 10 3/uL0.0-0.1Anion GapSeptember 2024 2:27pmSeptember 2024 2:27pm11.5 Activated Partial Thromboplast TimeSeptember 2024 2:27pmSeptember 2024 2:27pm26.7 sec22.3-36.2Prothromb Time International RatioSeptember 2024 2:27pmSeptember 2024 2:27pm1.08DESIRED INR:2.0-3.0 CONDITIONS NOT LISTED BELOW2.5-3.5 FOR PROSTHETIC HEART VALVE REPLACEMENT2.5-3.5 RECURRENT THROMBOSISBUN/Creatinine RatioSeptember 2024 8:30amSeptember 2024 8:30am14.1Basophils (%) (Auto)May 04, 2025 2:27pmSeptember 2024 2:27pm0.5 %0.2-2.0BUN/Creatinine RatioSeptember 2024 2:27pmSept2024 2:27pm17.4Prothrombin TimeSeptember 2024 2:27pmSeptember 2024 2:27pm11.4 sec9.0-11.6Blood Urea NitrogenSeptember 2024 8:30amSeptember 2024 8:30am28.0 mg/dLAbove high normal7.0-18.0Eosinophils # (Auto)May 04, 2025 2:27pmSeptember 2024 2:27pm0.2 10 3/uL0.0-0.7Blood Urea NitrogenSeptember 2024 2:27pmSeptember 2024 2:27pm41.0 mg/dLAbove high normal7.0-18.0Calcium LevelSeptember 2024 8:30amSeptember 2024 8:30am9.2 mg/dL8.5-10.1Eosinophils (%) (Auto)May 04, 2025 2:27pm May 04, 2025 2:27pm3.4 %0.9-7.0Calcium LevelSeptember 2024 2:27pm May 04, 2025 2:27pm9.0 mg/dL8.5-10.1Chloride LevelSeptember 2024 8:30amSeptember 2024 8:20co435 mmol/LAbove high ujlwmb12-071Nbszdhryys May 04, 2025 2:27pmSeptember 2024 2:27pm33.7 %Below low normal 42.0-54.0Chloride LevelSeptember 2024 2:27pmSeptember 2024 2:90wl490 mmol/X77-905Bodrnq Dioxide LevelSeptember 2024 8:30amSeptember 2024 8:30am28.1 mmol/L21.0-32.0HemoglobinSeptember 2024 2:27pmSeptember 2024 2:27pm11.0 g/dLBelow low gxkawk97.0-18.0Carbon Dioxide LevelSeptember 2024 2:27pmSeptember 2024 2:27pm23.5 mmol/L21.0-32.0CreatinineSeptember 2024 8:30amSeptember 2024 8:30am1.99 mg/dLAbove high normal0.70-1.30 Immature Granulocyte # (Auto)May 04, 2025 2:27pmSeptember 2024 2:27pm0.02 10 3/uL0.00-0.03CreatinineSeptember 2024 2:27pmSeptember 2024 2:27pm2.35 mg/dLAbove high normal0.70-1.30Estimated GFR () April 17, 2025 8:30amSeptember 2024 8:08im58Iiykc low normal>=60 mL/min/1.73m 2Immature Granulocyte % (Auto)May 04, 2025 2:27pmSeptember 2024 2:27pm0.3 %0.0-0.5Estimated GFR ()May 04, 2025 2:27pmSeptember 2024 2:73co27Thhss low normal>=60 mL/min/1.73m 2 Estimated GFR (Non- AmericanSeptember 2024 8:30amSeptember 2024 8:22nw21Nnwyu low normal>=60 mL/min/1.73m 2Lymphocytes # (Auto)May 04, 2025 2:27pmSeptember 2024 2:27pm1.0 10 3/uLBelow low normal1.2-3.8 Estimated GFR (Non- AmericanSeptember 2024 2:27pmSeptember 2024 2:51ml82Stnwy low normal>=60 mL/min/1.73m 2Glucose LevelSeptember 2024 8:30amSeptember 2024 8:30am98 mg/zB48-329Fdmztqdnlam (%) (Auto)May 04, 2025 2:27pmSeptember 2024 2:27pm16.1 %Below low eagull05.5-60.0 Glucose LevelSeptember 2024 2:27pmSeptember 2024 2:27pm81 mg/dL 74-106Potassium LevelSeptember 2024 8:30amSeptember 2024 8:30am5.1 mmol/L3.5-5.1Mean Corpuscular HemoglobinSeptember 2024 2:27pmSeptember 2024 2:27pm31.1 pg25.9-34.0Potassium LevelSeptember 2024 2:27pm May 04, 2025 2:27pm5.0 mmol/L3.5-5.1Sodium LevelSeptember 2024 8:30amSeptember 2024 8:49wp725 mmol/Q647-295Ebfh Corpuscular Hemoglobin ConcentSeptember 2024 2:27pmSeptember 2024 2:27pm32.6 g/dL29.9-35.2 Sodium LevelSeptember 2024 2:27pmSeptember 2024 2:96wa642 mmol/L 136-145Mean Corpuscular VolumeSeptember 2024 2:pmSept2024 2:27pm95.2 fLAbove high ehapzn22.0-94.0Monocytes # (Auto)May 04, 2025 2:pmSept2024 2:27pm0.5 10 3/uL0.3-0.8Monocytes (%) (Auto)May 04, 2025 2:27pmSept2024 2:27pm8.1 %1.7-12.0Mean Platelet Volume May 04, 2025 2:27pmSept2024 2:27pm9.2 fLBelow low normal 9.5-13.5Neutrophils # (Auto)May 04, 2025 2:27pmSept2024 2:27pm4.3 10 3/uL1.4-6.5Neutrophils (%) (Auto)May 04, 2025 2:27pm May 04, 2025 2:27pm71.6 %43.0-75.0Platelet CountSept2024 2:27pmSept2024 2:89ck760 10 3/uLBelow low yyloeb491-195Suc Blood CountSept2024 2:27pmSept2024 2:27pm3.54 10 6/uLBelow low normal4.70-6.10Red Cell Distribution WidthSept2024 2:pmSept2024 2:27pm14.6 %11.0-15.0Corrected White Blood CountSeptember 2024 2:27pmSept2024 2:27pm6.0 10 3/uL4.0-11.0 Vital Signs Vital Reading Result Reference Range Collection Date/Time Height 65 [in_i] July 12, 2025 11:95qnRbvsgl52.59 kgDecember 2024 11:39amBody Rmgjpawcfte38.3 [degF]97.6-99.0Decemb2024 11:39amHeart Rate75 /yor93-589 July 12, 2025 11:39amRespiratory rate16 /yva54-41Efndowyl 1st, 2025 11:39am Oxygen saturation by Pulse cixotwet94 %95-100Dece2024 11:39amBP Hvhkpyao030 mm[Hg]100-140Decemb2024 11:39amBP Mleywmrpv46 mm[Hg]60-100 July 12, 2025 11:39amBMI (Body Mass Index)27.0 kg/g6Yqfiytwk 2024 11:39am Advance Directives Advance Directive Response Recorded Date/ Time Advance Directives No July 5:23pm Insurance Providers Guarantor You Garcia Jr Address [address] [address]Cqblgew Info.Home Phone: Coverage Status Update:October 27, 2024 Payer Group Member ID Coverage Type Subscriber Relationship to Subscriber Effective Date Expiration Date MMO Id: [id number] A Bernal Id: [id number] [address] [address] Home Phone: [employer]/BS Id: [id number] A Bernal Id: [id number] [address] [address] Home Phone: Medicare [id number] Bernal , Jr Id: [id number] [address] [address] Home Phone: Email: Lily FLOR [facility] [id number] Bernal , Jr Id: [id number] [address] [address] Home Phone: Email: Marci FLOR [facility] [id number] Garcia Jr Id: [id number] [address] [address] Home Phone: Email: Sebastian Lock Encounter Location(s) Arrival/Admit Date Discharge/Departure Date Discharge/Departure Disposition Provider(s) Non-patient / Non-visit -[facility] S eptember 2024 9:30am Ehab A EltahawyNon-patient / W[facility] [place] [facility] CoSeptember 2024 3:27pmOutside ProviderDeparted Physician/Provider Office Visit-[facility] 2024 11:36amDecember 2024 12:21pm Discharged to home care or self care (routine discharge)Susan Watson , HOBBERKeaganC Recent Diagnosis Onset Date Admit Date CAD (coronary artery disease ) of artery bypass graft Unknown July 12, 2025 11:36am Cervical spondylosis Unknown July 11:36am Chronic diastolic heart failure Unknown July 12, 2025 11:36am Chronic kidney disease, stage 4 (severe) Unknown July 12, 2025 11:36am COPD (chronic obstructive pulmonary disease) Unk nown July 12, 2025 11:36am Dyspnea Unknown July 12 11:36am EDITH (generalized anxiety disorder) Unknown July 12, 2025 11:36am GERD without esophagitis Unknown Decembe r 2024 11:36am Hypertensive chronic kidney disease with stage 1 through stage 4 chronic ki Unknown July 12, 2025 11:36a m MCI (mild cognitive impairment) Unknown July 12, 2025 11:36am Mixed hyperlipidemia Unknown July 11:36am Assessments Diagnosis Onset Date Resolution Status Admit Date CAD (coronary artery disease) of artery bypass graft acuteDece2024 11:36amCervical spondylosisacuteJuly 12, 2025 11:36amChronic diastolic heart failureacuteJuly 12, 2025 11:36amChronic kidney disease, stage 4 (severe)acuteJuly 12, 2025 11:36amCOPD (chronic obstructive pulmonary disease)acuteJuly 12, 2025 11:36amDyspneaacute July 12, 2025 11:36amGAD (generalized anxiety disorder)acutece2024 11:36amGERD without esophagitisacutece2024 11:36amHypertensive chronic kidney disease with stage 1 through stage 4 chronic kiacuteDece2024 11:36amMCI (mild cognitive impairment)acuteJuly 12, 2025 11:36amMixed hyperlipidemiaacutece2024 11:36am Plan of Treatment [facility] 6:49amrecommend diet low in fat, and processed foods sees cardiology: current meds: asa, statin, plavix, imdur, b kelsy was referred to pain mgmt: current meds: asa, statin, imdur, amlodipine, b kelsy cardiology: ECHO: follows with nephrology regularly reviewed their notes lab: per their protocol current meds: trelegy, and prn albuterol recommend keeping UTD on immunizations: flu, covid, pneuomonia, RSV current meds: buproprion, buspar, olanzapine, sertraline, trazodone Recommendations: freq small meals, nothing to eat or drink at least 2 hours prior to bed, limit caffeine, alcohol, as well as spicy foods. Meds to limit or avoid if possible: NSAIDS Elevate the HOB if possible current meds: prn famotidine on statin therapy recommend diet low in fat and processed foods check labs yealry and prn dose changes Please check blood pressure daily and record DASH diet Limit caffeine Take medication as directed Contact office if chest pain, pressures, dizziness, shortness of breath, swelling in the legs Recommend slow position changes if you develop dizziness with position changes current meds: amlodipine, b kelsy, imdur Future Tests Future scheduled test information is unavailable Pending Tests Test Name Ordered Date Scheduled Date Comprehensive Metabolic Panel July 12, 2025 12:19pm XR chest 2V*July 12, 2025 12:18pm Future Visits Future appointment information is unavailable Future Procedures Procedure Name Ordered Date Scheduled Date Complete Blood Count Auto Diff July 12 12[facility] 12:19pmFerritinDece2024 12:19pm Future Medications Future medication information is unavailable Patient Instructions Patient instructions are unavailable
--- NOTE | 2025-07-12 22:18 | ECG_ITS ---
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
--- NOTE | 2025-07-12 22:37 | ED.GENADUL1 ---
HPI HPI - General Adult General Chief complaint: Recheck/Abnormal Lab/Rx Stated complaint: abnormal labs Time Seen by Provider: 07/12/25 22:17 Source: family Mode of arrival: walk-in History of Present Illness HPI narrative: past history of CHF, CKD stage IV. Lung CA right side 30 years ago s/p surgical treatment. Recent hospitalization for lower GI bleed requiring transfusion. Colonoscopy with finding of polyps and diverticulosis. Now presents complaining of nose bleed for the past couple of weeks on and off and increased shortness of breath with exertion over the past 2-3 days. Dyspnea just trying to get out of bed. Occ hemoptysis. Mild abdominal pain. Neg recurrence of rectal bleed Related Data Home Medications ?Medication ?Instructions ?Recorded ?Confirmed aspirin 81 mg tablet,delayed mg 07/12/25 release bupropion HCl 300 mg 24 hr tablet, mg PO 07/12/25 extended release buspirone 15 mg tablet mg 07/12/25 clopidogrel 75 mg tablet mg 07/12/25 famotidine 20 mg tablet mg 07/12/25 fenofibrate micronized 43 mg mg PO 07/12/25 capsule isosorbide mononitrate 60 mg mg PO 07/12/25 tablet,extended release 24 hr metoprolol tartrate 50 mg tablet mg 07/12/25 olanzapine 5 mg tablet mg 07/12/25 rivaroxaban 2.5 mg tablet (Xarelto) mg 07/12/25 sertraline 100 mg tablet mg 07/12/25 sodium zirconium cyclosilicate 10 g PO 07/12/25 gram oral powder packet (Lokelma) trazodone 100 mg tablet mg 07/12/25 Allergies Allergy/AdvReac Type Severity Reaction Status Date / Time No Known Drug Allergies Allergy Verified 07/10/23 15:24 Opioid HPI Opioid Management Most Recent Opioid Data: Last Pain Scale 8 07/10/23, 15:44 Review of Systems ROS Status of ROS 10 or more systems reviewed and unremarkable except as noted in history and below PFSH PFSH Social History Little interest or pleasure in doing things: not at all Feeling down, depressed, or hopeless: not at all Exam Constitutional Vital Signs, click to edit/add: Last Vital Signs Temp 98.4 F 07/12/25 22:14 Pulse 66 07/12/25 22:40 Resp 22 H 07/12/25 22:40 BP 116/90 07/12/25 22:30 Pulse Ox 94 L 07/12/25 22:40 O2 Del Method Room Air 07/12/25 22:14 Common normals: no apparent distress, average body habitus, oriented x3, no limitations, healthy appearing, alert and well nourished [facility] Common normals: normocephalic and head/scalp atraumatic Mouth: oral and palatal mucosa normal Eye Common normals: PERRL, EOMs intact bilaterally and conjunctivae normal Respiratory Common normals: normal respiratory effort, no retractions and no use of accessory muscles Auscultation: crackles Laterality: right Cardio Common normals: regular rate, regular rhythm, S1 normal heart sound and S2 normal heart sound GI Common normals: Normal to inspection, nondistended, normoactive bowel sounds present, soft to palpation and non-tender Extremity Common normals: normal to inspection and full ROM Neuro Common normals: oriented x3, CN's II-XII intact bilaterally and moves all extremities Psych Appearance: grossly normal Course Vital Signs Vital signs: Vital Signs Temperature 98.4 F 07/12/25 22:14 Pulse Rate 81 07/12/25 22:14 Respiratory Rate 20 07/12/25 22:14 Blood Pressure 119/68 07/12/25 22:14 Pulse Oximetry 94 L 07/12/25 22:14 Oxygen Delivery Method Room Air 07/12/25 22:14 Temperature 98.4 F 07/12/25 22:14 Pulse Rate 66 07/12/25 22:40 Respiratory Rate 22 H 07/12/25 22:40 Blood Pressure 116/90 07/12/25 22:30 Pulse Oximetry 94 L 07/12/25 22:40 Oxygen Delivery Method Room Air 07/12/25 22:14 Medical Decision Making [facility] Narrative Medical decision making narrative: patient past history of right sided lung CA treated surgically over 30 years ago and no known recurrence. history of CHF. Increasing dyspnea the past 3 days. has nose bleed on and off the past 2-3 weeks and did cough up blood. no chest pain or pleurisy. Seen by PCP today and sent to the ER. cxray earlier today ordered by PCP with findings of bilateral airspace opacties and mild [place]. [place] [address]. Trop normal at 20. Blood cultures ordered along with treatment for CAP. Hospitalist paged for admission. Discussed with the hospitalist and he would like brittaney 40 also given Lab Data Labs: Lab Results 07/12/25 Range/Units 22:30 WBC 9.1 (4.0-11.0) 10^3/uL RBC 3.05 L (4.70-6.10) 10^6/uL Hgb 9.1 L (14.0-18.0) g/dL Hct 28.4 L (42.0-54.0) % MCV 93.1 (80.0-94.0) fL MCH 29.8 (25.9-34.0) pg MCHC 32.0 (29.9-35.2) g/dL RDW 15.8 H (11.0-15.0) % Plt Count 156 (150-450) 10^3/uL MPV 9.1 L (9.5-13.5) fL Neut % (Auto) 77.0 H (43.0-75.0) % Lymph % (Auto) 9.9 L (20.5-60.0) % [place] % (Auto) 9.0 (1.7-12.0) % Eos % (Auto) 2.8 (0.9-7.0) % Baso % (Auto) 0.3 (0.2-2.0) % Neut # (Auto) 7.0 H (1.4-6.5) 10^3/uL Lymph # (Auto) 0.9 L (1.2-3.8) 10^3/uL [place] # (Auto) 0.8 (0.3-0.8) 10^3/uL Eos # (Auto) 0.3 (0.0-0.7) 10^3/uL Baso # (Auto) 0.0 (0.0-0.1) 10^3/uL Abs Immat Gran (auto) 0.09 H (0.00-0.03) 10^3/uL Imm/Tot Granulo (auto) 1.0 H (0.0-0.5) % Sodium 142 (136-145) mmol/L Potassium 4.2 (3.5-5.1) mmol/L Chloride 107 (98-107) mmol/L Carbon Dioxide 27.9 (21.0-32.0) mmol/L Anion Gap 11.3 BUN 20.0 H (7.0-18.0) mg/dL Creatinine 1.58 H (0.70-1.30) mg/dL Est GFR ( Amer) 53 L (>=60 mL/min/1.73m^2) Est GFR (Non-Af Amer) 43 L (>=60 mL/min/1.73m^2) BUN/Creatinine Ratio 12.7 Glucose 96 (74-106) mg/dL Lactate 0.9 (0.4-2.0) mmol/L Calcium 9.0 (8.5-10.1) mg/dL Total Bilirubin 0.9 (0.2-1.0) mg/dL AST 73 H (15-37) U/L ALT 95 H (16-63) U/L Alkaline Phosphatase 196 H (46-116) U/L Troponin I High Sens 20.2 (4.0-76.1) pg/mL NT-Pro-B Natriuret Pep 73286.0 H* (<=900.0) pg/mL Total Protein 6.5 (6.4-8.2) g/dL Albumin 2.9 L (3.4-5.0) g/dL Globulin 3.6 g/dL Albumin/Globulin Ratio 0.8 Discharge Plan Discharge Chief Complaint: Recheck/Abnormal Lab/Rx Clinical Impression: CHF (congestive heart failure), Pneumonia Patient Disposition: Admitted As Inpatient
--- OUTSIDE RECORDS SUMMARY | 2025-07-12 22:42 | XMS_ITS | Encounter Summary ---
Author Organization [facility] Address [address] [place] [address] Care Team Providers Care Ordnance Artificer Name Role Phone Susan Watson MD Primary Care Provider [phone] Encounter Details DateTypeDepartmentCare Team (Latest Contact Info)Tqijkmqerkw45/19/2025Travel Social History Tobacco UseTypesPacks/DayYears UsedDateSmoking Tobacco: FormerCigarettes Smokeless Tobacco: CurrentChewAlcohol UseStandard Drinks/WeekCommentsNot Currently0 (1 standard drink = 0.6 oz pure alcohol)PHQ-2AnswerDate Recorded Patient Health Questionnaire-2 Moeka82708/14/2024Humiliation, Afraid, Rape, and Kick questionnaireAnswerDate RecordedWithin the [...] times a week06/15/2025How often do you attend sikhism or restorationist services?Never06/15/2025Do you belong to any clubs or organizations such as sikhism groups, unions, fraternal or athletic groups, or school groups?No06/15/2025How often do you attend meetings of the clubs or organizations you belong to?Never06/15/2025re you , , , , never , or living with a partner?Dpkjoafwk80/04/2025UDIT-C AnswerDate RecordedQ1: How often do you have [...] medical care, and heating?Not hard at all06/29/2025 [place] [employer] - Occupational Stress Questionnaire AnswerDate RecordedDo you feel stress - tense, restless, nervous, or anxious, or unable to sleep at night because yourmind is troubled all the time - these days? Only a qysoqu0306/15/2025HC UtilitiesAnswerDate RecordedIn the past 12 months has the [employer], gas, oil, or water Upd[employer] threatened to shut off services in your [...] were you homeless or living in a retirement (including now)?No06/29/2025Hunger Vital SignAnswerDate Recorded Within the past 12 months, you worried that your food would run out before you got the money to buymore.Never true06/29/2025Within the past 12 months, the food you bought just didn't last and you didn't have money to get more.Never true 06/29/2025Sex and Gender InformationValueDate RecordedSex Assigned at BirthMale 04/08/2025 7:15 AM EDTLegal FivTmtk0302/07/2022 10:15 PM EDTGender IdentityMale 04/08/2025 7:15 AM EDTSexual OrientationHeterosexual or Laoponzl82/28/2025 7:15 AM EDTdocumented as of this encounter Plan of Treatment DateTypeDepartmentCare Team (Latest Contact Info)Dqouyfiiwpr15/08/2025 1:45 PM ESTFollow-Up [facility] V[facility] [address] [place] [address] Nadia Sheppard PA-C [address] [facility], [address] [place] [address] 07/22/2025 9:30 AM ESTFollow-Up [facility] [address] [place] [address] Sarah Tolliver MD [address] [facility] [address] [facility] [place] [address] 07/29/2025 2:30 PM ESTFollow-Up [facility] Gastro[facility]ology [address] [place] [address] Ebony Estevez, SUPERVISOR REFINING [address] [place], [place] [address] 08/23/2025 7:30 AM ESTHospital Encounter [facility] Main Operating Room [address] [facility] [place] [address] Chris Andre MD [address] [place] [address] 08/23/2025 7:30 AM EST - 08/23/2025 11:00 AM ESTSurgery [facility] Main Operating Room [address] [place] [address] Chris Andre MD [address] [place] [address] ENDARTERECTOMY, FEMORAL WITH POSSIBLE FEM TO POP RWDWAS1109/21/2025 11:00 AM EST Follow-Up [facility] Nephrology [address] [place] [address] Batsheva Beckwith MD [address] [facility] [address] [place] [address] NamePriorityAssociated DiagnosesDate/TimeENDARTERECTOMY, FEMORAL Peripheral arterial occlusive disease Encounter for pre-operative examination 08/23/2025 7:30 AM ESTdocumented as of this encounter Goals GoalPatient Goal TypeAssociated ProblemsRecent ProgressPatient-Stated?Author Blood Pressure < 140/90 Blood Qknpepkr994/78(07/06/2025 12:48 PM EST)Cy Child, JOHANAdocumented as of this encounter Visit Diagnoses Not on filedocumented in this encounter Care Teams Team MemberRelationshipSpecialtyStart DateEnd Date Susan Watson MD [address] [place] [address] PCP - GeneralNurse Practitioner10/13/24documented as of this encounter
--- OUTSIDE RECORDS SUMMARY | 2025-07-12 22:42 | XMS_ITS | Clinical Summary ---
Author Organization [facility] Address [address] [place] [address] Care Team Providers Care Extruder Operator Vertical Name Role Phone Thomas Hurtado MD Unavailable Susan Watson CNP Primary Care Provider [phone] Allergies No known active allergies Medications * This document contains information received from the source organization and may not represent a complete record from that organization. MedicationSigDispense QuantityRefillsLast FilledStart DateEnd DateStatus albuterol HFA (PROVENTIL HFA, VENTOLIN HFA) 90 mcg/actuation inhaler INHALE 1 PUFF BY MOUTH EVERY 4 HOURS SWAGXL2512/02/2021ctive amLODIPine (NORVASC) 5 mg tablet amlodipine 5 [...] 1/2 TABLETS BY MOUTH EVERY DAYActive omega 6-ojv-uwf-fish oil (FISH OIL) 100-160-1,000 mg cap Take [...] remission 04/12/2022MCI (mild cognitive impairment)2Dyspnea and respiratory eqamzcqauhdxo92/01/2022 Overview (02/09/2022): 66 pk/yr history of smoking. Quit in 1994, when diagnosed with NSCLC and treated with RULobectomy and XRT. Also has extensive coronary disease, with CABG. Sees cardiology at [facility] [place]. Anxiety, HTN, CKD IIIb. PCP started albuterol [...] present. ?? Pulmonary rehabilitation. ?? Referral to resaw operator here, at his request. ?? Echocardiogram. ?? Stop advair and breo today and start spiriva. His COPD classification would indicate a LAMA onlyfor most patients. Encounters DateTypeDepartmentCare RfjcFwhpapsccte68/18/2025 11:00 AM EDTOffice Visit Neurology [address] [place] [id number] Ebony Henderson, Memory loss (Primary Dx); Tension headachefrom Last 3 Months Social History Tobacco UseTypesPacks/DayYears UsedDateSmoking Tobacco: NeverSmokeless Tobacco: FormerChewQuit: 07/14/2022 Tobacco Cessation:Counseling Given: Not Answered Alcohol UseStandard Drinks/WeekCommentsNot Currently0 (1 standard drink = 0.6 oz pure alcohol)PHQ-2AnswerDate RecordedPHQ-2 /04/2025Area Deprivation IndexAnswerDate RecordedNational Score (1-100), lower number is lower risk87 05/16/2023State Score (1-10), lower number is lower tbub2213Data from: https://www.neighborhoodatlas.medicine.[facility].edu/. Last address used for gcdvsxchgam[address]/16/2023Sex and Gender InformationValueDate Recorded Sex Assigned at BirthNot on fileLegal ZuwYwyd8312/05/2021 11:57 AM EDTGender IdentityNot on fileSexual OrientationNot on file Last Filed Vital Signs Vital SignReadingTime TakenCommentsBlood Fsfvzutg660/6209 11:06 AM EDT Iojrf7018/18/2025 11:06 AM QJHIbygfukovqr27.4 ??C (97.5 ??F)02/09/2022 11:04 AM EDTRespiratory Xqbd647102/09/2022 11:04 AM EDTOxygen Mwemeuwgxs98%04/01/2025 2:14 PM EDTInhaled Oxygen Concentration--Lddsag50.6 kg (160 lb)04/29/2025 11:06 AM EDTper qpnedkfJbfwby203.6 cm (5' 6 )04/01/2025 2:14 PM EDTBody Mass Index25.82 04/01/2025 2:14 PM EDT Plan of Treatment Health MaintenanceDue DateLast DoneCommentsAnnual PCP Team Chronic Disease Visit 1971Anxiety Aagiouwph89/17/1971Hepatitis C Fqpkeupom40/17/1971LDL Doapwvnguci27/17/1971DTaP,Tdap,Td Vaccine (1 - Tdap)1972CT Colonography 1998Cologuard (FIT-DNA)04/28/19982450Tlmatljmlqv33/17/1998Colorectal Cancer Wliattkax02/17/1998Fecal Occult Blood04/28/19988947Qzwhewglsparg53/17/1998Shingrix Vaccine (1 of 2)2003RSV Vaccine (1 - Risk 60-74 years 1-dose series) 2013dvance Directive Vjsdbxaftw03/01/2025Medicare Advantage Annual Wellness Visit5Covid-19 Vaccine ( season)2025 08/06/2021, 11/08/2020, 10/19/2020Influenza Vaccine (#1), 08/03/2020Serum Epchoejvut36/28/15707604/08/2025, 01/12/2025, 10/20/2024, Additional history existsDiabetes Bdvgblokl02, 05/19/2021, 10/02/2019Lipid Nykotbpfb84, 4Pneumococcal Vaccine: 50+Gmzklozvo03/23/2020, 08/27/2019 Goals GoalPatient Goal TypeAssociated ProblemsRecent ProgressPatient-Stated?Author Blood Pressure < 130/80 Blood Vfmhkktg622/62(04/29/2025 11:06 AM EDT)Michael Garcia MD Insurance Care Teams Team MemberRelationshipSpecialtyStart DateEnd Date Susan Watson CNP [address] [place] [address] PCP - GeneralFamily Medicine04/01/25 Thomas Hurtado MD [address] [place] [address] [place] Referring TeamPsychiatry12/21/21
--- OUTSIDE RECORDS SUMMARY | 2025-07-12 22:43 | XMS_ITS | Clinical Summary ---
Author Organization [facility] Healthcare Address [address] [place] [address] Care Team Providers Care Loans Consultant Name Role Phone oJse Beckford MD Primary Care Provider [phone] Cherelle Coronado NP Unavailable [phone] Allergies No known active allergies Medications MedicationSigDispense QuantityRefillsLast FilledStart DateEnd DateStatus albuterol HFA 90 mcg/act inhaler Inhale 2 puffs every 4 (four) hours if needed for wheezingActive nitroglycerin (Nitrostat) 0.4 MG SL tablet Indications:Coronary artery disease involving pechanga coronary artery of pechanga heart without angina pectorisPlace 1 tablet (0.4 mg) under the tongue every 5 (five) minutes if needed for chest pain 30 tablet 4Active baclofen (Lioresal) 10 MG tablet Indications:Neck painTake 1 tablet (10 mg) by mouth as needed at bedtime for muscle spasms for up to 15 days 15 tablet 5Active amLODIPine (Norvasc) 5 MG tablet Indications:Primary hypertensionTake 1 tablet (5 mg) by mouth every 12 (twelve) hours 180 tablet 5Active atorvastatin (Lipitor) 80 MG tablet Indications:Other hyperlipidemiaTake 1 tablet (80 mg) by mouth at bedtime 90 tablet 5Active buPROPion XL (Wellbutrin XL) 300 MG 24 hr tablet Indications:Recurrent major depression in partial remissionTake 1 tablet (300 mg) by mouth in the morning. Do not crush, chew, or split. 90 tablet 5Active busPIRone (Buspar) 15 MG tablet Indications:Recurrent major depression in partial remissionTake 1 tablet (15 mg) by mouth in the morning and 1 tablet (15 mg) before bedtime. 180 tablet 5Active famotidine (Pepcid) 20 MG tablet Indications:Gastroesophageal reflux disease without esophagitisTake 1 tablet (20 mg) by mouth in the morning and 1 tablet (20 mg) before bedtime. 180 tablet 5Active fenofibrate micronized (Antara) 43 MG capsule Indications:Other hyperlipidemiaTake 1 capsule (43 mg) by mouth in the morning. Take with meals. 90 capsule tive Luskzrtkugr-Lttifkseq-Waogbz (Trelegy Ellipta) 100-62.5-25 MCG/ACT aerosol powder Indications:Chronic obstructive pulmonary disease, unspecified COPD type (HCC) Inhale 1 puff Daily Rinse mouth after use. Inhale 1 puff Daily 180 each tive isosorbide mononitrate ER (Imdur) 60 MG 24 hr tablet Indications:Primary hypertension,Coronary artery disease involving pechanga coronary artery of pechanga heart without angina pectorisTake 1 tablet (60 mg) by mouth Daily Do not crush or chew. 90 tablet 5Active lisinopril 10 MG tablet Indications:Primary hypertensionTake 1 tablet (10 mg) by mouth Daily 90 tablet tive metoprolol tartrate (Lopressor) 50 MG tablet Indications:Primary hypertension,Coronary artery disease involving pechanga coronary artery of pechanga heart without angina pectorisTake 1 tablet (50 mg) by mouth in the morning and 1 tablet (50 mg) before bedtime. 180 tablet 5Active OLANZapine (ZyPREXA) 5 MG tablet Indications:EDITH (generalized anxiety disorder)Take 1 tablet (5 mg) by mouth at bedtime 90 tablet 5Active sertraline (Zoloft) 100 MG tablet Indications:EDITH (generalized anxiety disorder),Recurrent major depression in partial remissionTake 2 tablets (200 mg) by mouth Daily 180 tablet 5Active traZODone (Desyrel) 100 MG tablet Indications:EDITH (generalized anxiety disorder),Recurrent major depression in partial remissionTake 1 tablet (100 mg) by mouth at bedtime 90 tablet 5Active Active Problems ProblemNoted DateDiagnosed DateChronic diastolic heart jmkbxur3503/01/2025 Assessment & Plan (03/01/2025 7:08 AM EDT): Noted on ECHO: 02/18/2525 grade 3 Current meds: plavix, norvasc, imdur, raulito, b kelsy, Pulmonary qspxhewfglbb22/21/2025 Assessment & Plan (03/01/2025 7:09 AM EDT): Noted on ECHO from 02/18/25 pressure 46 Cervical gaewsmqtawo67/10/2025 Assessment & Plan (03/01/2025 7:10 AM EDT): Referred to Dr Cherry pain mgmt Xr 02/08/25 DDD mod, C5-C6 and C6 C7 Neck pain11/19/2024 Assessment & Plan (03/01/2025 3:16 PM EDT): [...] not better Seems more muscle relatated Frequent falls06/17/2024Functional gait vnphshbuhqc11/06/2024 Assessment & Plan (06/22/2024 11:34 AM EST): [...] send referral today. Chronic obstructive pulmonary disease, aqbhiixcfvt77/31/2024 Assessment & Plan (03/01/2025 3:16 PM EDT): [...] recent exacerbations. Uses albuterol as needed. Primary xsvmzgadhjig49/31/2024 Assessment & Plan (03/01/2025 7:08 AM EDT): [...] greater tuberosity of left humerus with routine iuaxvup0209/19/2023oronary artery disease involving pechanga coronary artery of pechanga heart without angina lbmfeusw12/08/2024 Assessment & Plan (03/01/2025 7:08 AM EDT): Established with [facility] Cardiology Current meds: asa, amlodipine, statin, plavix, imdur, raulito, b kelsy, and prn nitro Assessment & Plan (11/19/2024 7:00 AM EDT): Established with [facility] Cardiology Current meds: asa, amlodipine, statin, plavix, imdur, raulito, b kelsy, and prn nitro Assessment & Plan (10/08/2024 5:49 PM EST): Current meds: plavix, amlodipine, statin, b kelsy, nitroglycerin prn No acute symptoms, cont with [facility] Cardiology Assessment & Plan (03/11/2024 2:27 PM EDT): S/p CABG. On ASA, BB, Imdur, plavix, statin Denies CP, SOB, palpitations. Following [facility] cardiology. Assessment & Plan (09/19/2023 5:32 PM EST): S/p CABG. On ASA, BB, Imdur, plavix, statin Denies CP, SOB, palpitations. Following [facility] cardiology. Mixed arqldbbjsrtjhx36/08/2024 Assessment & Plan (10/08/2024 7:11 AM EST): On statin and fenofibrate Check labs yearly and prn dose changes Assessment & Plan (06/22/2024 11:33 AM EST): Currently taking Atorvastatin 80mg Denies any myalgias. Continue current regimen. Assessment & Plan (03/11/2024 2:28 PM EDT): Check Lipid panel. Assessment & Plan (09/19/2023 5:35 PM EST): Check Lipid panel. Chronic kidney disease, stage 4 (severe)09/19/2023 Assessment & Plan (03/01/2025 7:08 AM EDT): [...] Avoid NSAIDS. C/w current regimen. H/O: lung luzmiu9209/19/2023Gastroesophageal reflux disease without esophagitis 09/19/2023 Assessment & Plan (03/01/2025 3:16 PM [...] Symptoms controlled with pepcid EDITH (generalized anxiety disorder)09/19/2023 Assessment & Plan (03/01/2025 7:11 AM EDT): Current meds: wellbutrin, buspar, sertraline and olanzapine Assessment & Plan (01/19/2025 6:49 AM EDT): Current meds: wellbutrin, buspar, sertraline and olanzapine Assessment & Plan (11/19/2024 2:12 PM EDT): Current meds: wellbutrin, buspar, sertraline Pt's daughter is a pysch DRUG SAFETY SPECIALIST, I have given daughter present today options [...] regimen. Traumatic complete tear of left rotator cuff09/19/2023 Assessment & Plan (09/19/2023 5:34 PM EST): Noted on MRI - following Orthopedics. Patient has a follow up appointment next week and it appears that he will likely need surgery for it. MCI (mild cognitive impairment)04/12/2022 Assessment & Plan (01/19/2025 6:48 AM EDT): Cont with neurology and neuropsych testing Assessment & Plan (10/08/2024 5:51 PM EST): Cont with neurology and neuropsych testing Atherosclerosis of arteries of qbcirwfxhkn38/14/2013 Assessment & Plan (11/19/2024 7:00 AM EDT): Asa, plavix, statin Intermittent nvmzeribxxhi61/14/3226Hhatajii84/07/2012 Resolved Problems ProblemNoted DateDiagnosed DateResolved DateRecurrent major depression in partial cvjeuywac14/4Recurrent major depressive disorder, in full paysvpobj81 Assessment & Plan (10/08/2024 5:51 PM EST): Current med: wellbutrin, sertralin, and trazodone PHQ 9=9 Assessment & Plan (03/11/2024 2:28 PM EDT): Symptoms improved and well controlled since Zoloft was increased to 200 mg. C.w wellbutrin, zoloft, buspirone, trazodone and olanzapine. No SI/HI. Assessment & Plan (03/11/2024 2:21 PM EDT): >>ASSESSMENT AND PLAN FOR RECURRENT MAJOR DEPRESSION IN PARTIAL REMISSION (HCC) (CMS/HCC) WRITTEN ON 09/19/2023 5:35 PM BY SHAIKH MOIZ MD Symptoms improved and well controlled since Zoloft was increased to 200 mg. C.w wellbutrin, zoloft, buspirone, trazodone and olanzapine. No SI/HI. Immunizations ImmunizationAdministration DatesNext DueInfluenza, High-dose Seasonal, Quadrivalent, Preservative Free05/23/2021,08/03/2020Pfizer Purple Cap SARS-CoV-2 Efkvnitylgm28/26/2021,11/08/2020,1Pneumococcal Conjugate PCV 13 08/27/2019Pneumococcal Polysaccharide JVLY363610/04/2019 Family History Medical HistoryRelationNameCommentsDiabetesMotherHeart diseaseMotherHypertension MotherDiabetesSisterRelationNameStatusCommentsFatherDeceasedMotherDeceasedSister x2 Social History Tobacco UseTypesPacks/DayYears UsedDateSmoking Tobacco: FormerCigarettesPassive Smoke Exposure: NeverSmokeless Tobacco: Never Tobacco Cessation:Counseling Given: Not Answered Alcohol UseStandard Drinks/WeekCommentsNever0 (1 standard drink = 0.6 oz pure alcohol)caffeine: 1-2 cups per hyqV1526 Health LiteracyAnswerDate RecordedHow often do you need to have someone help you when you read instructions, pamphlets, or other written material from your doctor or pharmacy?Sometimes 02/28/2025Humiliation, Afraid, Rape, and Kick questionnaireAnswerDate Recorded Within the last year, have you been afraid of your partner or ex-partner?No 02/28/2025Within the last year, have you been humiliated or emotionally abused in other ways by your partner or ex-partner?No02/28/2025Within the last year, have you been kicked, hit, slapped, or otherwise physically hurt by your partner or ex-partner?No02/28/2025Within the last year, have you been raped or forced to have any kind of sexual activity by your partner or ex-partner?No02/28/2025 Social Connection and Isolation PanelAnswerDate RecordedIn a typical week, how many times do you talk on the phone with family, friends, or neighbors?More than three times a week02/28/2025How often do you get together with friends or relatives?Once a week02/28/2025How often do you attend jainism or jehovah's witness services?Never02/28/2025Do you belong to any clubs or organizations such as jainism groups, unions, fraSecond Half Playbook or athletic groups, or school groups?No 02/28/2025How often do you attend meetings of the clubs or organizations you belong to?Never02/28/2025re you , , , , never , or living with a partner?Xxhixqdso35/20/2025UDIT-CAnswerDate Recorded Q1: How often do you have a drink containing alcohol?Never02/28/2025Q2: How many drinks containing alcohol do you have on a typical day when you are drinking? Patient does not drink02/28/2025Frequency of Binge DrinkingNot on file02/28/2025 Overall Financial Resource Strain (CARDIA)AnswerDate RecordedHow hard is it for you to pay for the very basics like food, housing, medical care, and heating?Not very hard02/28/2025PHQ-2AnswerDate RecordedPatient Health Questionnaire-2 Score0 03/11/2024[facility] [place] of Occupational Health - Occupational Stress QuestionnaireAnswerDate RecordedDo you feel stress - tense, restless, nervous, or anxious, or unable to sleep at night because yourmind is troubled all the time - these days?To some pgqqgf6502/28/2025Exercise Vital SignAnswerDate Recorded On average, how many days per week do you engage in moderate to strenuous exercise (like a brisk walk)?0 days02/28/2025On average, how many minutes do you engage in exercise at this level?0 min02/28/2025Hunger Vital SignAnswerDate RecordedWithin the past 12 months, you worried that your food would run out before you got the money to buymore.Never true02/28/2025Within the past 12 months, the food you bought just didn't last and you didn't have money to get more.Never true02/28/2025PRAPARE - TransportationAnswerDate RecordedIn the past 12 months, has lack of transportation kept you from medical appointments or from getting medications?No02/28/2025In the past 12 months, has lack of transportation kept you from meetings, work, or from getting things needed for daily living?No02/28/2025Housing Stability Vital SignAnswerDate RecordedIn the last 12 months, was there a time when you were not able to pay the mortgage or rent on time?No07/22/2023In the last 12 months, how many places have you lived?1 07/22/2023In the last 12 months, was there a time when you did not have a steady place to sleep or slept in [facility] (including now)?No07/22/2023Housing Stability Vital SignAnswerDate RecordedIn the last 12 months, was there a time when you were not able to pay the mortgage or rent on time?No02/28/2025In the past 12 months, how many times have you moved where you were living? At any time in the past 12 months, were you homeless or living in a alf (including now)?02/28/2025Sex and Gender InformationValueDate RecordedSex Assigned at BirthNot on fileLegal PmwGlei3710/24/2022 10:05 PM EDTGender Identity Not on fileSexual OrientationNot on file Last Filed Vital Signs Vital SignReadingTime TakenCommentsBlood Qbvdurps345/6407 1:45 PM EDT Gglss589603/01/2025 1:45 PM HIJMwpjickkeaz12.3 ??C (97.3 ??F)03/01/2025 1:45 PM EDTRespiratory Qezt813903/01/2025 1:45 PM EDTOxygen Aszvfoximu09%03/01/2025 1:45 PM EDTInhaled Oxygen Concentration--Bxtxby73.6 kg (166 lb 9.6 oz)03/01/2025 1:45 PM CCIZkzdic465.7 cm (5' 8 )06/17/2024 1:13 PM ESTBody Mass Index25.33108/17/2023 1:13 PM EST Plan of Treatment Not on file Insurance Care Teams Team MemberRelationshipSpecialtyStart DateEnd Jose Beckford MD [address] [place] [address] PCP - GeneralFamily Nqbuldvl21/29/24 Cherelle Coronado NP Nurse PractitionerFamily Arrrbcjn22/29/24
--- OUTSIDE RECORDS SUMMARY | 2025-07-12 22:43 | XMS_ITS | Encounter Summary ---
Author Organization [facility] Address [address] [place] [address] Care Team Providers Care Account Leader Name Role Phone Susan Watson MD Primary Care Provider [phone] Encounter Details DateTypeDepartmentCare Team (Latest Contact Info)Dkzehitvumo39/17/2025Results Follow-Up [facility] Infectious Disease [address] [facility], [address] [place] [address] Carolyn Romo MA Basic metabolic panel, Magnesium, Phosphorus, CBC Social History Tobacco UseTypesPacks/DayYears UsedDateSmoking Tobacco: FormerCigarettes Smokeless Tobacco: CurrentChewAlcohol UseStandard Drinks/WeekCommentsNot Currently0 (1 standard drink = 0.6 oz pure alcohol)PHQ-2AnswerDate Recorded Patient Health Questionnaire-2 Jvnas11408/14/2024Humiliation, Afraid, Rape, and Kick questionnaireAnswerDate RecordedWithin the [...] times a week11/04/2025How often do you attend christianity or congregation services?Never06/15/2025Do you belong to any clubs or organizations such as christianity groups, unions, fraternal or athletic groups, or school groups?No06/15/2025How often do you attend meetings of the clubs or organizations you belong to?Never06/15/2025re you , , , , never , or living with a partner?Cucqqawaq63/04/2025UDIT-C AnswerDate RecordedQ1: How often do you have [...] medical care, and heating?Not hard at all06/29/2025 [facility] [place] of Occupational Health - Occupational Stress Questionnaire AnswerDate RecordedDo you feel stress - tense, restless, nervous, or anxious, or unable to sleep at night because yourmind is troubled all the time - these days? Only a rehjco2506/15/2025HC UtilitiesAnswerDate RecordedIn the past 12 months has the [employer], gas, oil, or water [employer] threatened to shut off services in your [...] Assigned at BirthMale 04/08/2025 7:15 AM EDTLegal UtcEgad3702/07/2022 10:15 PM EDTGender IdentityMale 04/08/2025 7:15 AM EDTSexual OrientationHeterosexual or Bdhbfvml32/28/2025 7:15 AM EDTdocumented as of this encounter Plan of Treatment DateTypeDepartmentCare Team (Latest Contact Info)Bthnjhpkope90/08/2025 1:45 PM ESTFollow-Up [facility] Vascular [facility] End[facility] Surgery [address] [place] [address] Nadia Sheppard PA-C [address] [facility], [place] [address] [facility] [place] [address] 07/22/2025 9:30 AM ESTFollow-Up [facility] [address] [place] [address] Sarah Tolliver MD [address] [facility] [place] [address] [facility] [place] [address] 07/29/2025 2:30 PM ESTFollow-Up [facility] [address] [place] [address] [place] [address] Ebony Estevez, STRAP MAKING MACHINE OPERATOR [address] [facility] [place], [place] [phone] 08/23/2025 7:30 AM ESTHospital Encounter [facility] Main Operating Room [address] [place] [address] Chris Andre MD [address] [place] [phone] 08/23/2025 7:30 AM EST - 08/23/2025 11:00 AM ESTSurgery [facility] Main Operating Room [address] [place] [address] Chris Andre MD [address] [place] [phone] ENDARTERECTOMY, FEMORAL WITH POSSIBLE FEM TO POP YAUQPA4109/21/2025 11:00 AM EST Follow-Up [facility] Nephrology [address] [facility] [place] [address] Batsheva Beckwith MD [address] [facility] 2 [facility] [place] [address] NamePriorityAssociated DiagnosesDate/TimeENDARTERECTOMY, FEMORAL Peripheral arterial occlusive disease Encounter for pre-operative examination 08/23/2025 7:30 AM ESTdocumented as of this encounter Goals GoalPatient Goal TypeAssociated ProblemsRecent ProgressPatient-Stated?Author Blood Pressure < 140/90 Blood Sdyfbdyb697/78(07/06/2025 12:48 PM EST)Cy Child, JOHANAdocumented as of this encounter Visit Diagnoses Not on filedocumented in this encounter Care Teams Team MemberRelationshipSpecialtyStart DateEnd Date Susan Watson MD [address] [place] [address] PCP - GeneralNurse Practitioner10/13/24documented as of this encounter
--- OUTSIDE RECORDS SUMMARY | 2025-07-12 22:43 | XMS_ITS | Encounter Summary ---
Author Organization [facility] Address [address] [place] [address] Care Team Providers Care Decorating Machine Operator Name Role Phone Susan Watson MD Primary Care Provider [phone] Encounter Details DateTypeDepartmentCare Team (Latest Contact Info)Ddfrgfhmmsj98/20/2025Travel Social History Tobacco UseTypesPacks/DayYears UsedDateSmoking Tobacco: FormerCigarettes Smokeless Tobacco: CurrentChewAlcohol UseStandard Drinks/WeekCommentsNot Currently0 (1 standard drink = 0.6 oz pure alcohol)PHQ-2AnswerDate Recorded Patient Health Questionnaire-2 Jsatk82208/14/2024Humiliation, Afraid, Rape, and Kick questionnaireAnswerDate RecordedWithin the [...] times a week06/15/2025How often do you attend bahai or holiness services?Never06/15/2025Do you belong to any clubs or organizations such as bahai groups, unions, fraternal or athletic groups, or school groups?No06/15/2025How often do you attend meetings of the clubs or organizations you belong to?Never06/15/2025re you , , , , never , or living with a partner?Upxngzltc59/04/2025UDIT-C AnswerDate RecordedQ1: How often do you have [...] care, and heating?Not hard at all06/29/2025 [place] of Occupational Health - Occupational Stress Questionnaire AnswerDate RecordedDo you feel stress - tense, restless, nervous, or anxious, or unable to sleep at night because yourmind is troubled all the time - these days? Only a wuksna2706/15/2025HC UtilitiesAnswerDate RecordedIn the past 12 months has the [employer], gas, oil, or water [employer] threatened to shut off services in your [...] homeless or living in a halfway (including now)?No06/29/2025Hunger Vital SignAnswerDate Recorded Within the past 12 months, you worried that your food would run out before you got the money to buymore.Never true06/29/2025Within the past 12 months, the food you bought just didn't last and you didn't have money to get more.Never true 06/29/2025Sex and Gender InformationValueDate RecordedSex Assigned at BirthMale 04/08/2025 7:15 AM EDTLegal VsjAkqz5802/07/2022 10:15 PM EDTGender IdentityMale 04/08/2025 7:15 AM EDTSexual OrientationHeterosexual or Tcaiwcts27/28/2025 7:15 AM EDTdocumented as of this encounter Plan of Treatment DateTypeDepartmentCare Team (Latest Contact Info)Zqqbnxwnesj64/08/2025 1:45 PM ESTFollow-Up [facility] Vascular and Endovascular Surgery [address] [place] [phone] Nadia Sheppard PA-C [address] [facility], [place] [address] [place] [address] 07/22/2025 9:30 AM ESTFollow-Up [facility] Heart at [facility] [address] [place] [address] Sarah Tolliver MD [address] [facility] [place] [address] [facility] [place] [address] 07/29/2025 2:30 PM ESTFollow-Up [facility] Gastro[facility]ology [address] [facility] [place] [address] Ebony Estevez, CREPING MACHINE OPERATOR HELPER [address] [place], [place] [phone] 08/23/2025 7:30 AM ESTHospital Encounter [facility] Main Operating Room [address] [facility] [place] [address] Chris Andre MD [address] [place] [address] 08/23/2025 7:30 AM EST - 08/23/2025 11:00 AM ESTSurgery [facility] Main Operating Room [address] [place] [address] Chris Andre MD [address] [place] [address] ENDARTERECTOMY, FEMORAL WITH POSSIBLE FEM TO POP FBJTQX5109/21/2025 11:00 AM EST Follow-Up [facility] Nephrology [address] [facility] [place] [phone] Batsheva Beckwith MD [address] [facility] [address] [facility] [place] [address] NamePriorityAssociated DiagnosesDate/TimeENDARTERECTOMY, FEMORAL Peripheral arterial occlusive disease Encounter for pre-operative examination 08/23/2025 7:30 AM ESTdocumented as of this encounter Goals GoalPatient Goal TypeAssociated ProblemsRecent ProgressPatient-Stated?Author Blood Pressure < 140/90 Blood Uolrknqt798/78(07/06/2025 12:48 PM EST)Cy Child, JOHANAdocumented as of this encounter Visit Diagnoses Not on filedocumented in this encounter Care Teams Team MemberRelationshipSpecialtyStart DateEnd Date Susan Watson MD [address] [place] [address] PCP - GeneralNurse Practitioner10/13/24documented as of this encounter
--- OUTSIDE RECORDS SUMMARY | 2025-07-12 22:43 | XMS_ITS | Encounter Summary ---
Author Organization [facility] Address [address] [place] [address] Care Team Providers Care Purchasing Clerk Name Role Phone Susan Watson MD Primary Care Provider [phone] Encounter Details DateTypeDepartmentCare Team (Latest Contact Info)Ogfglrtlxtj99/21/2025Telephone [facility] [address] [place] [address] Elza Butt MA Social History Tobacco UseTypesPacks/DayYears UsedDateSmoking Tobacco: FormerCigarettes Smokeless Tobacco: CurrentChewAlcohol UseStandard Drinks/WeekCommentsNot Currently0 (1 standard drink = 0.6 oz pure alcohol)PHQ-2AnswerDate Recorded Patient Health Questionnaire-2 Rjhqq20108/14/2024Humiliation, Afraid, Rape, and Kick questionnaireAnswerDate RecordedWithin the [...] times a week06/15/2025How often do you attend yazidism or jain services?Never06/15/2025Do you belong to any clubs or organizations such as yazidism groups, unions, fraternal or athletic groups, or school groups?No06/15/2025How often do you attend meetings of the clubs or organizations you belong to?Never06/15/2025re you , , , , never , or living with a partner?Ybezlgbhe82/04/2025UDIT-C AnswerDate RecordedQ1: How often do you have [...] medical care, and heating?Not hard at all06/29/2025 [employer] [place] [employer] - Occupational Stress Questionnaire AnswerDate RecordedDo you feel stress - tense, restless, nervous, or anxious, or unable to sleep at night because yourmind is troubled all the time - these days? Only a yonteh1806/15/2025HC UtilitiesAnswerDate RecordedIn the past 12 months has the [employer] gas, oil, or water [employer] threatened to shut off services in your [...] you homeless or living in a senior living (including now)?No06/29/2025Hunger Vital SignAnswerDate Recorded Within the past 12 months, you worried that your food would run out before you got the money to buymore.Never true06/29/2025Within the past 12 months, the food you bought just didn't last and you didn't have money to get more.Never true 06/29/2025Sex and Gender InformationValueDate RecordedSex Assigned at BirthMale 04/08/2025 7:15 AM EDTLegal NwaPrvo3602/07/2022 10:15 PM EDTGender IdentityMale 04/08/2025 7:15 AM EDTSexual OrientationHeterosexual or Jbjuayha41/28/2025 7:15 AM EDTdocumented as of this encounter Miscellaneous Notes * Telephone Encounter - Elza Butt MA - 07/02/2025 8:53 AM EST Phone call from patient daughter Nini. Per daughter You had a colonoscopy yesterday and the GI DrBren Advised him to see you within the next week due to abnormal labs. I advised the daughter I could schedule him with an BUTTERMAKER HELPER and she next week and she states he is scheduled with you on 07/22 and would like to keep that appointment with you and not see an BUTTERMAKER HELPER. Patients blood work is in the patientlook up under the lab tab. Please advise LVM for patient daughter to call in reference to You's labs. Spoke to daughter to advise her of Dr. Tolliver's a advise, daughter verbalized understanding and agreed with plan of care. documented in this encounter Plan of Treatment DateTypeDepartmentCare Team (Latest Contact Info)Seneertsqhz93/08/2025 1:45 PM ESTFollow-Up [facility] Vascular and Endovascular Surgery [address] [place] [phone] Nadia Sheppard PA-C [address], [address] [place] [phone] 07/22/2025 9:30 AM ESTFollow-Up [facility] [address] [place] [address] Sarah Tolliver MD [address] [place] [phone] 07/29/2025 2:30 PM ESTFollow-Up [facility] [place] [phone] Ebony Estevez, MÓNICA [address] [place] [address] 08/23/2025 7:30 AM ESTHospital Encounter [facility] Main Operating Room [address] [place] [address] Chris Andre MD [address] [place] [address] 08/23/2025 7:30 AM EST - 08/23/2025 11:00 AM ESTSurgery [facility] Main Operating Room [address] [place] [address] Chris Andre MD [address] [facility] [place] [address] ENDARTERECTOMY, FEMORAL WITH POSSIBLE FEM TO POP RCSBWS7309/21/2025 11:00 AM EST Follow-Up [facility] [address] [facility] [place] [address] Batsheva Beckwith MD [address] [facility] [address] [facility] [place] [address] NamePriorityAssociated DiagnosesDate/TimeENDARTERECTOMY, FEMORAL Peripheral arterial occlusive disease Encounter for pre-operative examination 08/23/2025 7:30 AM ESTdocumented as of this encounter Goals GoalPatient Goal TypeAssociated ProblemsRecent ProgressPatient-Stated?Author Blood Pressure < 140/90 Blood Txlidrrg522/78(07/06/2025 12:48 PM EST)Cy Child, JOHANAdocumented as of this encounter Visit Diagnoses Not on filedocumented in this encounter Care Teams Team MemberRelationshipSpecialtyStart DateEnd Date Susan Watson MD [address] [place] [address] PCP - GeneralNurse Practitioner10/13/24documented as of this encounter
--- OUTSIDE RECORDS SUMMARY | 2025-07-12 22:43 | XMS_ITS | Clinical Summary ---
Author Organization [facility] Address [id number] [address] [place] [address] Care Team Providers Care Cage Operator Name Role Phone Susan Watson APRN-MANAGING JEWELER Primary Care Provider Allergies No known active [...] chest pain.4Active Active Problems ProblemNoted DateDiagnosed DateCervical evcwaromwph72/10/2025Neck pain11/19/2024 Frequent falls06/17/2024Functional gait eyfgimvhgqt77/06/2024hronic obstructive pulmonary disease, tgywetqdyug06/31/2024Chronic kidney disease, stage 4 (severe) 4Closed nondisplaced fracture of greater tuberosity of left humerus with routine hmipftn5909/19/2023oronary artery disease involving minto coronary artery of minto heart without angina tuuuxvog23/08/2024GAD (generalized anxiety disorder)09/19/2023Traumatic complete tear of left rotator cuff09/19/2023MCI (mild cognitive impairment)2Recurrent major depression in partial uyoadoayj10/01/2022Recurrent major depressive disorder, in full remission 2Primary nxcrvuasgvzb41/17/2014bnormal results of cardiovascular function pwrqccm2609/30/2013 Overview (01/27/2025): MILD INFERIOR AND ANTERIOR ISCHEMIA EF 52% Chest pain09/18/2013Dyspnea and respiratory dtnttyarozymk04/07/2014 Overview (01/27/2025): 66 pk/yr history of smoking. Quit in 1994, when diagnosed with NSCLC and treated with RULobectomy and XRT. Also has extensive coronary disease, with CABG. Sees cardiology at [facility]. Anxiety, HTN, CKD IIIb. PCP started albuterol [...] without BD response. Atherosclerosis of arteries of xptcbrzxkog37/14/2013Intermittent claudication 08/25/2012Gastroesophageal reflux disease without mpbopruqdpa57/07/2012Migraine 07/18/2012Mixed oqzkvmhgejkpkg83/07/2012WeaknessDepression Social History Tobacco UseTypesPacks/DayYears UsedDateSmoking Tobacco: FormerCigarettes Smokeless Tobacco: CurrentChew Tobacco Cessation:Ready to Q uit: Not Asked; Counseling Given: Not Answered Alcohol UseStandard Drinks/WeekCommentsNever0 (1 standard drink = 0.6 oz pure alcohol)ChildcareAnswerDate DbyrtubxEoclqjupsJfgbnsz19/21/2020EmploymentAnswer Date QtppgjiuWjdzzlgrdkLcqsscp02/21/2020Hunger ScreeningAnswerDate Recorded Within the past 12 months we worried whether our food would run out before we got money to buy more.Never True03/10/2025Within the past 12 months the food we bought just didn't last and we didn't have money to get more.Never True 03/10/2025Purpose - LifeAnswerDate RecordedPurpose and direction in lifeUnknown 09/22/2020ex and Gender InformationValueDate RecordedSex Assigned at BirthNot on fileLegal TafTmwk6510/02/2019 11:04 AM ESTGender IdentityNot on fileSexual OrientationNot on file Last Filed Vital Signs Vital SignReadingTime TakenCommentsBlood Kauhxsnl021/54003/10/2025 9:53 AM EDT Gvhzs060403/10/2025 9:53 AM XTCNzgsghovjsq70.2 ??C (97.2 ??F)02/19/2025 1:56 PM EDTRespiratory Dgwi455003/10/2025 9:53 AM EDTOxygen Ybwwwgygjr240%03/10/2025 9:53 AM EDTInhaled Oxygen Concentration--Onvzup07.9 kg (163 lb)03/10/2025 9:53 AM EDT Tlbtkm648.1 cm (5' 5 )03/10/2025 9:53 AM EDTBody Mass Index27.12003/10/2025 9:53 AM EDT Plan of Treatment Health MaintenanceDue DateLast DoneCommentsTobacco Novrvwflsf1953 Depression Qmmxftppp11/17/1965Adult BMI Follow Up Plan1971DTaP,Tdap and Td Vaccines (1 - Tdap)1972Zoster (Shingles) Vaccine (1 of 2)2003RSV ( or age 60+ yrs) (1 - Risk 60-74 years 1-dose series)2013Fall Risk Ddnyyzvau09/17/2018COVID-19 Vaccine ( - season)2025 08/06/2021, 11/08/2020, 10/19/2020Influenza Cebyoec83/07/2021, 08/03/2020Statin Use: Svyeswntkpwwnx36dult BMI Screening Tobacco Qnvforzvc44bdominal Aortic Aneurysm (AAA) BiytdqNwuzufkgq61/24/2020 Medical Devices Not on file Insurance Care Teams Team MemberRelationshipSpecialtyStart DateEnd Date Susan Watson, GERARDO-MANAGING JEWELER PCP - GeneralNurse Practitioner01/11/25
--- OUTSIDE RECORDS SUMMARY | 2025-07-12 22:43 | XMS_ITS | CCD ---
Author Organization [facility] Care Team Providers Care Technical Services Consultant Name Role Phone AMBURN, JOMAR Unavailable [...] Cardoza Primary Care Provider Genesis, Thomas Unavailable Nadria Choi Unavailable Hanna Toscano Unavailable Genesis, Thomas [...] Unavailable Cornelio LEMON, Awad Primary Care Provider Genesis LEMON, Thomas Unavailable EUN KAUFMAN Referring Unavailable Cornelio LEMON [facility] Unavailable Jose Beckford MD Primary Care Provider Ivonne RESIST COATER DEVELOPER, Jayy Unavailable Vannessa Russell MA Unavailable Unavailable Cornelio LEMON, [facility] Primary Care Provider Ivonne RESIST COATER DEVELOPER, Jayy Unavailable [phone] Shirley SALES SERVICE REPRESENTATIVE-MÓNICA, Noa Hurley Primary Care Provider NOA WATSON Attending Unavailable NOA WATSON Attending Unavailable SHAIKH GRIMES Attending Unavailable JAYY CORONADO Attending Unavailabl e NOA WATSON Attending Unavailable NOA WATSON Attending Unavailable JAYY CORONADO Attending Unavailabl e Aichholz SALES SERVICE REPRESENTATIVE-DENTAL TECHNICIAN, Noa J Primary Care Provider Noa Watson CNP Primary Care Provider [phone] BILL GANT Referring Unavailable NOA WATSON Primary Care Unavailable BILL GANT Attending Unavailable SELF Referring Unavailable NOA WATSON Primary Care Unavailable JAYY CORONADO Referring Unavaila ble CORNELIO [facility] Primary Care Unavailable SARAH TOLLIVER Referring Unavailable CORNELIO [facility] Primary Care Unavailable NOA WATSON J Referring [...] Care Unavailable Cornelio LEMON, Primary Care Provider [phone] Cornelio LEMON, Unavailable Jose Beckford MD Primary Care Provider [phone] Ivonne YAÑEZ, Jayy Unavailable Vannessa Russell MA Unavailable [facility] Referring Unavailable WILL KEYS Referring Unavailable NAZZAL, MUNIER Admitting Unavailable NAZZAL, MUNIER Attending Unavailable KARAN HAWKINS Attending Unavailable [facility] Admitting Unavailable [facility], [facility] Attending Unavailable [facility] Admitting Unavailable [facility] Attending Unavailable NAZZAL, MUNIER Admitting Unavailable NAZZAL, MUNIER Attending Unavailable IRAIS ARRINGTON Attending Unavailable NAZZAL, MUNIER Attending Unavailable [facility] Referring Unavailable NAZZAL, MUNIER Referring Unavailable DEBBIE MIRANDA Attending Unavailable [facility] Referring Unavailable [facility], [facility] Attending Unavailable [facility] Referring Unavailable [facility] Referring Unavailable Allergies Allergy ClassificationReported Allergen(s)Allergy TypeDate of OnsetReaction(s) Facility (1 source)Penicillins; Translations: [PENICILLINS]Propensity to adverse reactions to drug (disorder)[facility])NO ACTIVE ALLERGIES; Translations: [NO ACTIVE ALLERGIES]Propensity to adverse reactions (disorder)[facility] Medications Current Medications MedicationDrug Class(es)DatesSig (Normalized)Sig (Original)[id number] 200 actuat albuterol 0.09 mg/actuat metered dose inhaler (20 sources)beta2-Adrenergic AgonistStart: 33-76-1307wxwq 2 puff(s) by inhalation every four hours as needed for wheezingalbuterol (PROVENTIL HFA;VENTOLIN HFA) 90 mcg/actuation inhaler Indications: Acute bronchitis, unspe cified organism Inhale 2 puffs every 4 (four) hours as needed for wheezing. 18 g 02/26/2024 ActiveStart: 12-02-2021 End: 77-98-3302qjsc 1 puff(s) by mouth every four hours as neededalbuterol HFA (PROVENTIL HFA, VENTOLIN HFA) 90 mcg/actuation inhaler INHALE 1 PUFF BY MOUTH EVERY 4HOURS NEEDED 12/02/2021 ActiveStart: 58-90-2891Axsyzxzqz Sulfate 90 mcg/actuation HFA aerosol inhaler Active 90 MCG INHALATION Q4H as needed for Sh ortness Of Breath September 13, 2020 1:00amStart: 59-72-5034ppvy 1 puff(s) by inhalation every four hours as neededVentolin HFA 108 (90 Base) MCG/ACT 1 puff as needed Inhalation every 4 hrs for 30 day(s) PRN Jul, Not-TakingStart: 95-66-8107lrle 2 puff(s) by inhalation every four hours [...] (20 sources)Dihydropyridine Calcium Channel BlockerStart: 03-11-2024 End: 22-90-5340zbzp 1 tablet by mouth onceamLODIPine (Norvasc) 5 MG tablet Indications: Primary hypertension Take 1 tablet (5 mg) by mouth every 12 (twelve) hours 180 tablet 1 03/01/2025 05/30/2025 ActiveStart: 19-15-1134kwvm 1 tablet by mouth twice dailyAmlodipine 5 mg tablet Active 5 MG PO Twice daily October 15, 2023 4:56pmStart: 10-22-2019 End: 37-34-6538qixh 1 tablet by mouth once dailyAmlodipine 5 [...] Inhibitor, Nonsteroidal Anti-inflammatory Drug Start: 10-22-2019 End: 10-70-8978hgnv 1 tablet by mouth in the morningaspirin 81 MG EC tablet Indications: Coronary artery disease involving [place] coronary artery 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 pectoris Take 1 tablet [...] tablet (20 sources)HMG-CoA Reductase InhibitorStart: 10-22-2019 End: 42-27-1549bltm 1 tablet by mouth at bedtimeatorvastatin (Lipitor) 80 MG tablet Indications: Other hyperlipidemia Take 1 tablet (80 mg) by mouth at bedtime 90 tablet 1 03/01/2025 05/30/2025 ActiveComment on above:atorvastatin 80 mg tablet TAKE 1 TABLET BY MOUTH EVERY DAYbaclofen 10 mg oral tablet (20 sources)gamma-Aminobutyric Acid-ergic AgonistStart: 04-79-1150ngqm 1 tablet by mouth once daily as neededbaclofen (LIORESAL) 10 mg tablet Take 1 tablet (10 mg total) by mouth daily as needed. 12/24/2024 ActiveStart: 11-19-2024 End: 92-32-5512vupityac (Lioresal) 10 MG tablet Indications: Neck pain Take 1 tablet (10 mg) by mouth as needed atbedtime for muscle spasms for up to 15 days 15 tablet 12/24/2024 Zybtnx08 hr buPROPion hydrochloride 300 mg extended release oral tablet (20 sources)AminoketoneStart: 03-11-2024 End: 70-13-2941fiik 1 tablet by mouth every twenty-four hours in the morning buPROPion XL (Wellbutrin XL) 300 MG 24 hr tablet Indications: Recurrent major depression in partialremission Take 1 tablet (300 mg) by mouth in the morning. Do not crush, chew, or split. 90 tablet 05/30/2025 ActiveStart: 46-56-4239gvdo 1 tablet by mouth once daily in the morningStart: 09-19-2023 End: 91-00-1667eeoz 1 tablet by mouth every twenty-four hours in the morning buPROPion XL (Wellbutrin XL) 300 MG 24 hr tablet Indications: Recurrent major depression in partialremission (HCC) (CMS/HCC) Take 1 tablet (300 mg) by mouth in the morning. Do not crush, chew, or split.. 90 tablet 0 09/19/2023 12/18/2023 ActiveStart: 12-04-2021 End: 91-36-1184jtdc 1 tablet by mouth once daily in the morningbuPROPion XL (WELLBUTRIN XL) 150 mg 24 hr tablet TAKE 1 TABLET BY MOUTH EVERY DAY IN THE MORNING 0 12/04/2021 04/10/2022 DiscontinuedStart: 10-22-2019 End: 10-46-2864iqkl 1 tablet by mouth once dailyBupropion Hcl 100 mg Tablet Sustained-Release 12 Hr Discontinued 100 MG PO Daily October 22, 2019 12:00am October 15, 2023 4:57pmStart: 10-22-2019 End: 66-33-7409ddkf 1 tablet by mouth once dailyBupropion Hcl [...] mg oral tablet (20 sources)Start: 10-22-2019 End: 23-03-8769sdkl 1 tablet by mouth in the morningbusPIRone [...] tablet (20 sources)P2Y12 Platelet InhibitorStart: 10-22-2019 End: 88-50-4902nxiw 1 tablet by mouth once dailyclopidogrel (Plavix) 75 MG tablet Indications: Coronary 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 30 tablet 11 04/02/2025 Active famotidine 20 mg oral tablet (20 sources)Histamine-2 Receptor AntagonistStart: 10-22-2019 End: 44-25-8930wqra 1 tablet by mouth in the morningfamotidine [...] sources)Peroxisome Proliferator Receptor alpha AgonistStart: 10-22-2019 End: 98-25-3395aneb 1 capsule by mouth twice dailyFenofibrate Micronized 43 mg capsule Take 43 mg by mouth twice daily. 12/15/2021 Activetake 1 capsule by mouth once daily before breakfastfenofibrate micronized (ANTARA) 43 mg capsule Take 1 capsule (43 mg total) by mouth every morning before breakfast. Active Comment on above:Take 43 mg by mouth twice daily.ferrous sulfate 325 mg oral tablet (8 sources)Start: 01-19-2025 End: 67-72-1494zxku 1 tablet by mouth at mealtimeferrous sulfate (FeroSul) 325 (65 Fe) MG tablet Indications: Chronic kidney disease, stage 4 (severe) ([facility]) Take 1 tablet (325 mg) by mouth in the morning. Take with meals. 90 tablet 1 03/01/2025 05/30/2025 ActiveFish Oils (20 sources)take 1 capsule by mouth once dailytake 1 capsule by mouth once daily Fish Oil 1000 MG 1 capsule Orally Once a day Quiuzm876 actuat fluticasone propionate 0.115 mg/actuat / salmeterol 0.021 mg/actuat metered dose inhaler (9 sources)Corticosteroid, beta2-Adrenergic Agonisttake 2 puff(s) by inhalation twice daily30 actuat fluticasone furoate 0.1 mg/actuat / umeclidinium 0.0625 mg/actuat / vilanterol 0.025 mg/actuat dry powder inhaler (20 sources)Anticholinergic, Corticosteroid, beta2-Adrenergic AgonistStart: 02-18-2024 End: 01-58-1907cusw 1 puff(s) by mouth once daily, then take 1 puff(s) by mouth once cjxekQbwejwotrot-Foqtcxfbi-Tggmks (Trelegy Ellipta) 100-62.5-25 MCG/ACT aerosol powder Indications: Chronic obstructive pulmonary disease, unspecified COPD type (HCC) Inhale 1 puff Daily Rinse mouth afteruse. Inhale 1 puff Daily 180 each 1 03/01/2025 05/30/2025 ActiveStart: 02-18-2024 End: 48-84-9627ukxn 1 puff(s) by inhalation in the morning penoqllantu-euitfbhzk-wmvcfayy (TRELEGY ELLIPTA) 100-62.5-25 mcg blister with device Inhale 1 puff in the morning. 02/18/2024 03/24/2025 ActiveStart: 22-12-6850Krqhtibwrfa-Umeclidin-Vilanter (Trelegy Ellipta) 100-62.5-25 mcg blister with device Active 1 INH INHALATION Daily October 15, 2023 1:00amStart: 09-19-2023 End: 64-74-1208szjx 1 puff(s) by inhalation in the morning Atwriyeubbm-Fogqoealn-Mlqleq (Trelegy Ellipta) 100-62.5-25 MCG/ACT aerosol powder Indications: Chronic obstructive pulmonary disease, unspecified COPD type (CMS/HCC) Inhale 1 puff in the morning. 90 each 0 09/19/2023 12/18/2023 Active Start: 91-70-9358inxd 1 puff(s) by inhalation once dailyTrelegy Ellipta 100-62.5-25 MCG/INH 1 puff Inhalation Once a day for 30 days Feb, Active End: 83-47-3353Uvpmpzxdodr-Umeclidin-Vilant (Trelegy Ellipta) 100-62.5-25 MCG/ACT aerosol powder Inhale 0 09/19/2023 Discontinued (Reorder)furosemide 20 mg oral tablet (2 sources)Loop DiureticStart: 02-22-7566zvwd 1 tablet by mouth once daily in the morningfurosemide (LASIX) 20 mg tablet Take 1 tablet by mouth every morning. 30 tablet 11 04/02/2025 Cqdlgx07 hr isosorbide mononitrate 60 mg extended release oral tablet (20 sources)Nitrate VasodilatorStart: 09-19-2023 End: 67-77-8918lfjc 1 tablet by mouth every twenty-four hours in the morning isosorbide mononitrate ER (Imdur) 60 MG 24 hr tablet Indications: Coronary artery disease involvingnative coronary artery 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 pectoris (CMS/HCC) , Primary hypertension (CMS/HCC) Take 1 tablet (60 mg) by mouth in the morning. Do not crush or chew.. 90 tablet 0 09/19/2023 12/18/2023 ActiveStart: 10-22-2019 End: 06-92-4113qjlz 1 tablet by mouth once dailyisosorbide mononitrate ER (Imdur) 60 MG 24 hr tablet Indications: Primary hypertension , Coronary artery disease involving [place] coronary artery 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 pectoris Take 1 tablet(60 mg) by mouth Daily Do not crush or chew. 90 tablet 1 03/01/2025 05/30/2025 ActiveComment on above:isosorbide mononitrate ER 60 mg tablet,extended release 24 hr TAKE 1 TABLET BY MOUTH EVERY MORNINGlisinopril 10 mg oral tablet (20 sources)Angiotensin Converting Enzyme InhibitorStart: 12-24-2024 End: 79-08-0141tvbv 1 tablet by mouth once dailylisinopril 10 MG tablet Indications: Primary hypertension Take 1 tablet (10 mg) by mouth Daily 90 tablet 1 03/01/2025 05/30/2025 ActiveComment on above:lisinopril 10 mg tabletmetoprolol tartrate 50 mg oral tablet (20 sources)beta-Adrenergic BlockerStart: 03-11-2024 End: 59-73-7280mmtl 1 tablet by mouth in the morningmetoprolol tartrate (Lopressor) 50 MG tablet Indications: Primary hypertension , Coronary artery dis ease involving buck[place] coronary artery 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 pectoris Take 1 tablet (50 mg)by mouth in the morning and 1 tablet (50 mg) before bedtime. 180 tablet 1 03/01/2025 05/30/2025 ActiveStart: 09-19-2023 End: 95-42-6735jcne 1 tablet by mouth in the morningmetoprolol tartrate (Lopressor) 50 MG tablet Indications: Coronary artery disease involving [place] c oronary artery 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 pectoris (CMS/HCC) , Primary hypertension (CMS/HCC) Take 1 tablet (50 mg) by mouth in the morning and 1 tablet (50 mg) before bedtime. 180 tablet 0 09/19/2023 12/18/2023 ActiveStart: 10-22-2019 End: 72-62-8705hlql 1 tablet by mouth once dailyMetoprolol Succinate [...] BY MOUTH TWICE DAILYMultivitamin preparation (2 sources)Start: 63-11-1874mkli 1 tablet by mouth once dailyMultivitamin Active 1 TAB PO Daily September 13, 2020 1:00amMultivitamin Tablet (2 sources)Start: 49-38-7855nqjk 1 tablet by mouth once dailyMultivitamin Tablet Active 1 TAB PO Daily September 13, 2020 1:00amNitro Sublingual 0.4 0.4mg (20 sources)Nitro Sublingual 0.4 0.4mg 1 Sublingual Every 5min x3 PRN Active nitroglycerin 0.4 mg sublingual tablet (20 sources)Nitrate VasodilatorStart: 10-15-2023 End: 74-59-9025Fxurx: 10-22-2019 End: 77-49-9214fezsqjjvhysba (Nitrostat) 0.4 MG SL tablet Indications: Coronary artery disease involving [place] coronary artery 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 pectoris Place 1 tablet (0.4 mg) under the tongue every5 (five) minutes if needed for chest pain 30 tablet 06/17/2024 Activenitroglycerin sublingual (NITROQUICK) 0.4 mg SL tablet nitroglycerin 0.4 mg sublingual tablet Active Comment on above:nitroglycerin 0.4 mg sublingual tabletOLANZapine 5 mg oral tablet (20 sources)Atypical AntipsychoticStart: 01-19-2025 End: 44-94-6836nzlo 1 tablet by mouth once daily at bedtimeOLANZapine (ZYPREXA) 5 mg tablet Take 5 mg by mouth daily at bedtime. 03/01/2025 05/30/2025 Active Start: 12-01-2024 End: 02-15-2887vvvr 1 tablet by mouth at bedtimeOLANZapine (ZyPREXA) 2.5 MG tablet Indications: EDITH (generalized anxiety disorder) (CMS/HCC) Take 1tablet (2.5 mg) by mouth at bedtime 90 tablet 1 12/24/2024 01/19/2025 Discontinued (Ineffective)Start: 09-19-2023 End: 72-66-0078nhpm 1 tablet by mouth once dailyStart: 10-22-2019 End: 17-47-2514qhez 1 tablet by mouth once daily at bedtimeOlanzapine 5 mg Tablet Discontinued 5 MG PO Daily at bedtime October 22, 2019 12:00am October 15, 2023 5:01pmComment on above:olanzapine 5 mg tablet TAKE 1 TABLET BY MOUTH EVERY DAY AT BEDTIMEomega 4-ghl-hps-fish oil (FISH OIL) 100-160-1,000 mg cap (16 sources)omega 4-xcd-mzx-fish oil (FISH OIL) 100-160-1,000 mg cap Take by mouth. Activeomega 1-frz-kqd-fish oil (FISH OIL) 100-160-1,000 mg cap Take by mouth. 0 ActiveComment on above:Take by mouth.[place]-3 Fatty Acids (2 sources)Start: 76-72-1728tvfa 1000 mg by mouth once dailyOmega-3 Fatty Acids Active 1000 MG PO Daily September 13, 2020 1:00amOmega-3 Fatty Acids Capsule (2 sources)Start: 67-91-6125vpif 1 capsule by mouth once dailyOmega-3 Fatty Acids Capsule Active 1000 MG PO Daily September 13, 2020 1:00amPaxlovid 10 x 150 MG & 10 x 100MG (1 source)Start: 40-99-8413Tztecfxh 10 x 150 MG & 10 x 100MG as directed Orally Twice a day for 5 days Feb, Activesertraline 100 mg oral tablet (20 sources)Serotonin Reuptake InhibitorStart: 03-11-2024 End: 84-18-6340unce 2 tablets by mouth once dailysertraline (Zoloft) 100 MG tablet Indications: EDITH (generalized anxiety disorder) , Recurrent major depression in partial remission Take 2 tablets (200 mg) by mouth Daily 180 tablet 1 03/01/2025 05/30/2025 ActiveStart: 73-38-2056npeq 1.5 tablets by mouth once dailyStart: 46-54-4551fdah 1.5 tablets by mouth once dailyStart: 09-19-2023 End: 60-05-0301neps 2 tablets by mouth at bedtimesertraline (Zoloft) 100 MG tablet Indications: Major Depressive Disorder Take 2 tablets (200 mg) bymouth at bedtime 180 tablet 0 09/19/2023 12/18/2023 ActiveStart: 10-22-2019 End: 42-67-8602baba 1 tablet by mouth once dailySertraline 100 [...] tablet (20 sources)Serotonin Reuptake InhibitorStart: 10-22-2019 End: 21-97-1976nwui 1 tablet by mouth once daily at bedtimetraZODone (DESYREL) 100 mg tablet Take 100 mg by mouth daily at bedtime. 08/10/2022 ActiveComment on above:Take 100 mg by mouth daily at bedtime.Trelegy Ellipta 100-62.5-25 MCG/INH (3 sources)Start: 15-63-6096poyw 1 puff(s) by inhalation once dailyTrelegy Ellipta 100-62.5-25 MCG/INH 1 puff Inhalation Once a day for 30 days Feb, ActiveStart: 50-17-8339Rvjwt: 79-02-9443dgyx 1 puff(s) by inhalation once dailyTrelegy Ellipta 100-62.5-25 MCG/INH 1 puff Inhalation Once a day for 30 days Feb, Not-Takingzolpidem tartrate 10 mg oral tablet (13 sources)gamma-Aminobutyric Acid-ergic AgonistStart: 11-80-2058kjot 1 tablet by mouth every twenty-four hoursAmbien 10 MG 1 tablet at bedtime Orally Once a day for 30 days g47.0 Jan, Active{10 (nirmatrelvir 150 MG Oral Tablet) / 10 (ritonavir 100 MG Oral Tablet) } Pack [Paxlovid 150 MG /100 MG Dose Pack] (3 sources)Start: 30-75-6600Osdcn: 18-78-1744Uhmdcank 10 x 150 MG & 10 x 100MG as directed Orally Twice a day for 5 days Feb, Active Completed/Discontinued Medications MedicationDrug Class(es)DatesSig (Normalized)Sig (Original)amoxicillin 875 mg / clavulanate 125 mg oral tablet (3 sources)Penicillin-class AntibacterialStart: 04-09-2023 End: 08-90-8476wcxl 1 tablet by mouth twice dailyAmoxicillin-Pot Clavulanate 875-125 mg tablet Discontinued 1 TAB PO Twice daily April 09, 2023 12:00am October 15, 2023 4:56pmdoxepin hydrochloride 50 mg oral capsule (18 sources)Tricyclic AntidepressantStart: 13-13-4239jrbk 1 capsule by mouth every twenty-four hoursDoxepin HCl 100 MG 1 capsule at bedtime Orally Once a day for 30 days Nov, ActiveStart: 93-63-4767vvlo 1 capsule by mouth every twenty-four hoursDoxepin HCl 25 MG 1 capsule at bedtime Orally Once a day for 30 day(s) Nov, ActiveStart: 12-04-2021 End: 98-13-5790ifpwnxp capsule 50 mg30 actuat fluticasone furoate 0.1 mg/actuat / vilanterol 0.025 mg/actuat dry powder inhaler (17 sources)Corticosteroid, beta2-Adrenergic AgonistStart: 09-13-2020 End: 30-18-3304Joebajdkglf Furoate-Vilanterol (Breo Ellipta) 100-25 mcg/dose blister with device Discontinued 1 INH INHALATION Daily September 13, 2020 1:00am October 15, 2023 5:02pmStart: 08-01-2020 End: 44-55-5456xjjq 1 puff(s) by mouth once dailyBREO ELLIPTA 100-25 mcg/dose inhaler INHALE 1 PUFF BY MOUTH EVERY DAY 0 11/05/2021 02/09/2022 Discontinued Start: 30-41-3299Khqjclb on above:INHALE 1 PUFF BY MOUTH EVERY DAY methylPREDNISolone (9 sources)CorticosteroidStart: 12-22-2021 End: 64-90-0355nnykduQRVJUCWawkha (MEDROL, TEAGAN,) 4 mg Dose-Pack Take as instructed 1 Package 0 12/22/2021 08/15/2022 DiscontinuedStart: 12-22-2021 methylPREDNISolone (MEDROL, TEAGAN,) 4 mg Dose-Pack Take as instructed 1 Package 0 12/22/2021 ActiveComment on above:Take as instructed Mhvsechargkto-Qihdlvvz-Yxtywj (MULTIVITAMIN 50 PLUS) tab (9 sources) End: 11-38-9741Tnphgjxzsccey-Minerals-Lutein (MULTIVITAMIN 50 PLUS) tab Take 1 tablet by mouth once daily. 0 08/15/2022 Discontinued Hvjmjrcovsdrt-Pfmlrnsl-Mxkvoj (MULTIVITAMIN 50 PLUS) tab Take 1 tablet by mouth once daily. 0 ActiveComment on above:Take 1 tablet by mouth once daily. predniSONE 20 mg oral tablet (9 sources)Start: 01-19-2025 End: 43-36-6244kglnxiNUEF (Deltasone) 20 MG tablet Indications: Neck pain Twice a day for 3 days, then once a day for 3 days, take with food 9 tablet 01/19/2025 03/01/2025 Discontinued (Therapy completed)Start: 67-37-2272ezlatxHRGG (DELTASONE) 20 mg tablet 60mg x3d, 40mg x3d, 20mg x3d, 10mg x4d 20 tablet 02/26/2024 ActivetraMADol hydrochloride 50 mg oral tablet (4 sources)Opioid AgonistStart: 09-30-2020 End: 45-38-5085zsds 0.5-1 tablets by mouth every six hours as needed for pain Tramadol (Ultram) 50 mg tablet Discontinued 50 MG PO Q6H as needed for pain 10 03September 30, 2020 1:00am October 15, 2023 5:00pm 1/2 - 1 tab po q 6 hours prn pain Problems Active Problems Problem ClassificationProblemDateDocumented DateEpisodic/ChronicAbdominal hernia (4 sources)Hernia of anterior abdominal wall; Translations: [Ventral hernia without obstruction or gangrene]05-24-6095ElggnuvsFsbdycm on above:Problem List clean-up per request of Phys. EHR CmteAbdominal pain (1 source)Unspecified abdominal pain; Translations: [Unspecified abdominal pain] Onset: 77-55-6647XepbigbhIgqhh and unspecified renal failure (2 sources)Acute kidney failure, unspecified; Translations: [KELLIE (acute kidney injury) N17.9]Onset: 05-23-2021 Resolved: 54-17-1430TazkhyigDvaciuo disorders (20 sources)Generalized anxiety disorder; Translations: [Generalized anxiety disorder]Onset: 930289-51-7115VdtmkbkJcixneu kidney disease (20 sources)Chronic kidney disease stage 3; Translations: [Chronic kidney disease, stage 3 (moderate)]Onset: 720532-00-5979MyputwjWkchuwy kidney disease (15 sources)Chronic kidney disease; Translations: [Chronic kidney disease, stage 3b]Onset: 05-23-2021 Resolved: 70-77-0103Fpywmfp obstructive pulmonary disease and bronchiectasis (20 sources)Simple chronic bronchitis; Translations: [Simple chronic bronchitis] Onset: 01-05-2022 Resolved: 28-29-3935AwazmpaOfhu; stupor; and brain damage (15 sources)Daytime somnolence; Translations: [Somnolence]Onset: 01-29-2022 Resolved: 67-02-1584TkkvgwjzSerbzjitfjqa of device; implant or graft (20 sources)Arteriosclerosis of coronary artery bypass graft; Translations: [Atherosclerosis of coronary arterybypass graft(s) without angina pectoris] Onset: 05-23-2021 Resolved: 91-40-4242RyanmjuIpbzjskfqxxbe of surgical procedures or medical care (2 sources)Infection following a procedure, other surgical site, initial encounter; Translations: [Infection following a procedure, other surgical site, initial encounter]Onset: 73-94-7723NdwoovybImbiemkqim heart failure; nonhypertensive (13 sources)Chronic diastolic heart failure; Translations: [Chronic diastolic (congestive) heart failure]Onset: 186706-22-0722ZqpmtinUoocjnni atherosclerosis and other heart disease (20 sources)Atherosclerotic heart disease of [place] coronary artery without angina pectoris; Translations: [Coronary arteriosclerosis]Onset: 07-27-2022 ChronicCoronary atherosclerosis and other heart disease (1 source)Presence of aortocoronary bypass graft; Translations: [Hx of CABG] Onset: 73-34-5708ZxljhsfkSksctvjcxt and other anemia (3 sources)Anemia; Translations: [Anemia, unspecified]30-51-4262Rxlpijsb Delirium, dementia, and amnestic and other cognitive disorders (3 sources)Dementia associated with another disease; Translations: [Dementia in other diseases classified elsewhere with behavioral disturbance]ChronicDisorders of lipid metabolism (20 sources)Hyperlipidemia; Translations: [Hyperlipidemia, unspecified]Onset: 07-18-2012 Resolved: 71-18-3128NdsraqfMpycprslmzbfbo and diverticulitis (3 sources)Diverticulitis of sigmoid colon; Translations: [Diverticulitis of large intestine without perforation or abscess without bleeding]04-17-2023 ChronicEsophageal disorders (20 sources)Gastroesophageal reflux disease without esophagitis; Translations: [Gastro-esophageal reflux disease without esophagitis]Onset: 07-18-2012 21-16-6985DzhxjlhDouptgtvo hypertension (20 sources)Essential hypertension; Translations: [Essential (primary) hypertension]Onset: 05-28-2014 Resolved: 81-52-8045MovyjirXwjyn and electrolyte disorders (13 sources)Hyperkalemia; Translations: [Hyperkalemia]Onset: 33-76-7632Goyohiuw Headache; including migraine (20 sources)Migraine; Translations: [Migraine, unspecified, not intractable, without status migrainosus]Onset: 113243-92-4626FcejlinWelez valve disorders (3 sources)Nonrheumatic mitral (valve) insufficiency; Translations: [Non- rheumatic mitral regurgitation ]Onset: 166693-41-8387PnxyryaIcggtqovcmke with complications and secondary hypertension (20 sources)Malignant hypertensive chronic kidney disease; Translations: [Hypertensive chronic kidney disease with stage 1 through stage 4 chronic kidney disease, or unspecified chronic kidney disease]Onset: 05-23-2021 Resolved: 57-73-9195UnbeknrEmezmix and fatigue (20 sources)Fatigue; Translations: [Chronic fatigue, unspecified]ChronicMalaise and fatigue (2 sources)Asthenia; Translations: [Weakness]02-64-8042HyatkzvySvvrm aftercare (2 sources)Encounter for other specified surgical aftercare; Translations: [Encounter for other specified surgical aftercare]Onset: 34-31-6068IeexyyetDpzsz circulatory disease (2 sources)Presence of other vascular implants and grafts; Translations: [Presence of other vascular implants and grafts]Onset: 82-42-9778BezkgmsTfpoe circulatory disease (2 sources)Disorder of arteries and arterioles, unspecified; Translations: [Disorder of arteries and arterioles, unspecified]Onset: 48-67-6076KwxndocBuloh circulatory disease (2 sources)Other specified symptoms and signs involving the circulatory and respiratory systems; Translations:[Other specified symptoms and signs involving the circulatory and respiratory systems]Onset: 32-19-9801LkzfkofgUywje circulatory disease (2 sources)Other disorder of circulatory system; Translations: [Other disorder of circulatory system]Onset: 96-59-8263MoavtiqxAmcok connective tissue disease (2 sources)Pain in right leg; Translations: [Pain in right leg]Onset: 04-23-2025 EpisodicOther connective tissue disease (2 sources)Pain in left leg; Translations: [Pain in left leg]Onset: 04-23-2025 EpisodicOther hereditary and degenerative nervous system conditions (20 sources)Impaired cognition; Translations: [Mild cognitive impairment, so stated]Onset: 96-18-0044FuwdyeqQvubw hereditary and degenerative nervous system conditions (1 source)Extrapyramidal and movement disorder, unspecified; Translations: [Movement disorder]Onset: 67-41-1129AtobplwHnxyh lower respiratory disease (15 sources)Nodule of lung; Translations: [Solitary pulmonary nodule]Episodic Other lower respiratory disease (3 sources)Solitary pulmonary noduleOnset: 01-05-2022 Resolved: 40-94-7394HgogvrbkQxxst lower respiratory disease (2 sources)Other forms of dyspnea; Translations: [ROMAN (dyspnea on exertion)] Onset: 02-27-2022 Resolved: 92-43-9649UudonhtjRhoxd lower respiratory disease (2 sources)Dyspnea on exertion; Translations: [Other forms of dyspnea]04-01-2025 EpisodicOther nervous system disorders (3 sources)Abnormal gait; Translations: [Unspecified abnormalities of gait and mobility]94-90-8437KsdzpvvqJcauu nervous system disorders (2 sources)Impaired aaagibetx68-86-0201DzlsjdkxLiieilwwox and visceral atherosclerosis (20 sources)Atherosclerosis of arteries of the extremities; Translations: [Unspecified atherosclerosis of buck[place] arteries of extremities, unspecified extremity]Onset: 826927-50-1324QjdrgdmBclikblah heart disease (10 sources)Pulmonary hypertension; Translations: [Pulmonary hypertension, unspecified]Onset: 211278-14-7960GgpxmxzQvczidqf codes; unclassified (11 sources)Sleep apnea; Translations: [Sleep apnea, unspecified]ChronicResidual codes; unclassified (1 source)Sleep apnea, unspecifiedOnset: 02-27-2022 Resolved: 39-91-2785RwsnpwnNzcohsab codes; unclassified (6 sources)Obstructive sleep apnea syndrome; Translations: [Obstructive sleep apnea (adult) (pediatric)]98-36-3819TviqwprJshzhirs codes; unclassified (1 source)Obstructive sleep apnea (adult) (pediatric)ChronicResidual codes; unclassified (1 source)Obstructive sleep apnea (adult)(pediatric); Translations: [Obstructive sleep apnea (adult) (pediatric)]Onset: 16-33-3391SagjwcwBqvlzqpm codes; unclassified (11 sources)History of lung lobectomy; Translations: [Acquired absence of lung [part of]]EpisodicResidual codes; unclassified (2 sources)Acquired absence of lung [part of]Onset: 02-27-2022 Resolved: 58-88-7222ByvedsgcMmglxxcb codes; unclassified (4 sources)Amnesia; Translations: [Other amnesia]96-09-4884IkjulzqbBxzlffra codes; unclassified (1 source)Other amnesia; Translations: [Memory loss]Onset: 48-72-0989Rrqglrpg Residual codes; unclassified (1 source)Memory impairment; Translations: [Other amnesia]01-90-4043XscctwigIkcz and subcutaneous tissue infections (2 sources)Cellulitis, unspecified; Translations: [Cellulitis, unspecified] Onset: 06-26-7527JtpijvccRpxrnmuoxio; intervertebral disc disorders; other back problems (20 sources)Cervical spondylosis; Translations: [Spondylosis without myelopathy or radiculopathy, cervical region]Onset: 219342-06-6550YhzkqqgTeqkoaxdozip (2 sources)Consult; Translations: [Consult]Onset: 04-21-2025 Past or Other Problems Problem ClassificationProblemDateDocumented DateEpisodic/ChronicCancer of bronchus; lung (20 sources)History of malignant neoplasm of thoracic cavity structure; Translations: [Personal history of other malignant neoplasm of bronchus and lung]Onset: 02-27-2022 Resolved: 16-86-2291KmkqgzmpSjzatxidvt and other anemia (5 sources)Anemia, unspecified; Translations: [Anemia, unspecified]Onset: 901538-27-3085QefjfffzRyfxuomz of upper limb (20 sources)Closed fracture proximal humerus, greater tuberosity; Translations: [Nondisplaced fracture of greater tuberosity of left humerus, subsequent encounter for fracture with routine healing]Onset: 765885-56-7743Mmobwtku Mood disorders (20 sources)Depressive disorder; Translations: [Depression, unspecified depression type]Onset: 12-18-2021 Resolved: 21-28-9542ItibifdFwbnjeiuttk chest pain (2 sources)Chest pain; Translations: [Chest pain, unspecified]Onset: 09-18-2013 97-40-1670GsypebucWgoum connective tissue disease (20 sources)Recurrent falls ; Translations: [Repeated falls]Onset: 06-17-2024 67-59-0583UolocltuNjxmw connective tissue disease (2 sources)Repeated falls; Translations: [Repeated falls]Onset: 10-13-2024 EpisodicOther lower respiratory disease (7 sources)Shortness of breath; Translations: [SHORTNESS OF BREATH]Onset: 12-26-2021 Resolved: 14-35-4928AzkrpvnjHrieq lower respiratory disease (16 sources)Dyspnea; Translations: [Shortness of breath]Onset: 09-18-2013 EpisodicOther lower respiratory disease (2 sources)Dyspnea, unspecified; Translations: [Dyspnea, unspecified]Onset: 05-84-1610KvlgsqgtQasis nervous system disorders (20 sources)Functional gait abnormality; Translations: [Other abnormalities of gait and mobility]Onset: 704132-85-1159BdcpvtagDigco nervous system disorders (2 sources)Other abnormalities of gait and mobility; Translations: [Other abnormalities of gait and mobility]Onset: 94-31-9215YtkekeqoZrnku screening for suspected conditions (not mental disorders or infectious disease) (2 sources)Abnormal results of cardiovascular function studies; Translations: [Abnormal result of cardiovascular function study, unspecified]Onset: 09-30-2013 18-10-0608QptnljpoRktdibodxea; intervertebral disc disorders; other back problems (20 sources)Neck pain; Translations: [Cervicalgia]Onset: EpisodicSprains and strains (20 sources)Strain of muscle(s) and tendon(s) of the rotator cuff of left shoulder, subsequent encounter; Translations: [Other specified aftercare]Onset: 851833-62-1601Chcugrnk Results Test NameValueInterpretationReference EeaucRhkcjtaa00wo 10-05-172524Fgb patient is Moderately Stable - Low risk [...] injury: Assess patient frequently for physical needs Haddock fall precautions as indicated by assessment Instruct [...] the shift include vss, safety, and comfortNormal [facility] Hospital DaytonMAGNESIUMon 40-07-8989Gjxcfgrjk [Mass/Vol]1.7 mg/dLLow1.9-2.7UnElyria Memorial HospitalComment on above:Performed By: #### [id number] ####[facility] ([facility])[address] [place] [address] 30on 17-27-161553Bjcqf Case Management Update Multidisciplinary rounds have been completed. Barriers to Discharge: Patient is medically ready for hospital discharge at this time. AVS has been completed, and primary RN has been notified of patients discharge readiness. Vascular Surgery has ordered a home wound vac for patient. [facility] has hand faxed necessary documentation for home wound vac approval, and will await confirmation. [facility] will continue to follow and provide any updates on discharge. 1749: [facility] able to access [employer] online system to check status of patients ready. Currently system is not showing an approved home vac. [facility] is currently in communication with [facility]/OR patient software support specialist to clarify. [facility] will provide updates as able. [...] discharge disposition appropriate for patient?: Yes New Consults:NormalUnElyria Memorial Hospital30The patient is Moderately Stable - Low risk of patient condition declining or worsening The patient's goals for the shift include comfort The clinical goals for the shift include comfortNormalUniversUC Medical CenterBASIC METABOLIC PANELon 17-15-5489Hrefj gap [Moles/Vol]13 mmol/L Normal7-20UnElyria Memorial HospitalComment on above:Performed By: #### [id number] #### [facility] ([facility]) [address] [place] [place] [address]Edwlqlp [Mass/Vol]8.6 mg/dLNormal8.6-10.3UnElyria Memorial HospitalComment on above:Performed By: #### [id number] #### [facility] ([facility]) [address] [place] [address]Ihohiybx [Moles/Vol]111 mmol/BZkyj02-409OvjkazjhynElyria Memorial HospitalComment on above:Performed By: #### [id number] #### [facility] ([facility]) [address] [address]KX2 [Moles/Vol]21 mmol/GTvyrjb86-11NuejhltkmcElyria Memorial HospitalComment on above:Performed By: #### [id number] #### [facility] ([facility]) [address] [place], [place] [address]Cpdtgksljw [Mass/Vol]1.57 mg/dLHigh0.70-1.30UnElyria Memorial HospitalComment on above:Performed By: #### [id number] #### [facility] ([facility]) [address] [place] [address]ZXWFRYZLRD FILTRATION RATE ML/MIN/1.73 SQ M.HJZZZCVQR13.5 mL/min/1.73m*2Low>60.0UnElyria Memorial HospitalComment on above:Result Comment: [facility]???s estimated glomerular filtration rate (eGFR) will no [...] affect anyone group of individuals.Performed By: #### [id number] #### [facility] ([facility]) [address] [place], [place] [address]Uhbvfvu [Mass/Vol]102 mg/uUVipx88-754UzevvrcmyjElyria Memorial HospitalComment on above:Performed By: #### [id number] #### [facility] ([facility]) [address] [place], [place] [address]Riygfbppb [Moles/Vol]4.5 mmol/LNormal3.5-5.1UnElyria Memorial HospitalComment on above:Performed By: #### [id number] #### [facility] ([facility]) [address] [place], [place] [address]Tbfhts [Moles/Vol]140 mmol/YYiutys501-958ZuvdewjhqhElyria Memorial HospitalComment on above:Performed By: #### [id number] #### [facility] ([facility]) [address] [place], [place] [address]Qzgm nitrogen [Mass/Vol]26 mg/dLHigh7-25UnElyria Memorial HospitalComment on above:Performed By: #### [id number] #### [facility] ([facility]) [address] [place] [place], [place] [address]MPXB NITROGEN/CREATININE (MASS RATIO) IN SER/PLAS16.6Normal Access Hospital DaytonComment on above:Performed By: #### [id number] #### [facility] ([facility]) [address] [place], [place] [address]SGJta 93-93-6689Efhcsavankk distribution width (RBC) [Ratio]15.2 %High11.5-15.0UnElyria Memorial HospitalComment on above:Performed By: #### [id number] #### [facility] ([facility]) [address] [facility] [place] [address]KLVDHTCPBIL MEAN CORPUSCULAR HEMOGLOBIN CONCENTRATION (G/DL) BY NVRKMKTRZ88.9 g/dLLow32.0-35.0UnElyria Memorial HospitalComment on above:Performed By: #### [id number] #### [facility] ([facility]) [address] [facility] [place], [place] [address]Hnixujiiwt (Bld) [Volume fraction]26.0 %Low39.0-50.0UnElyria Memorial HospitalComment on above:Performed By: #### [id number] #### [facility] ([facility]) [address] [place] [address]Kmehjxaivt (Bld) [Mass/Vol]8.3 g/dLLow13.0-17.0UnElyria Memorial HospitalComment on above:Performed By: #### [id number] #### [facility] ([facility]) [address] [place] [address]AVA (RBC) [Entitic mass]30.6 edGfbcrz28.0-33.0UnElyria Memorial HospitalComment on above:Performed By: #### [id number] #### [facility] ([facility]) [address] [place] [address]MND (RBC) [Entitic vol]95.9 hBWaxbph68.0-98.0UnElyria Memorial HospitalComment on above:Performed By: #### [id number] #### [facility] ([facility]) [address] [place] [address]QQVTXIGEX (10*3/UL) IN BLOOD AUTOMATED GGORV019 10*3/uLNormal 150-400UnElyria Memorial HospitalComment on above:Performed By: #### [id number] #### [facility] ([facility]) [address] [place] [address]RCB (Bld) [#/Vol]2.71 10*6/uLLow4.20-5.70UnElyria Memorial HospitalComment on above:Performed By: #### [id number] #### [facility] ([facility]) [address] [place] [address]RBX (Bld) [#/Vol]4.32 10*3/uLNormal4.00-10.60UnElyria Memorial HospitalComment on above:Performed By: #### [id number] #### [facility] ([facility]) [address] [place] [address]MBji 31-12-7791MDGolavtrun Admitted 06/15/2025 for Cellulitis Discharge Diagnosis Cellulitis [...] 100-62.5-25 mcg blister with device Generic drug: imqzqayfuqp-qysyfwscv-bmfhnkml Activity May shower day of wound vac dressing change Diet Continue on the same type of diet and foods as you were eating before your admission. Drink plenty of water. Allergies Patient has no known allergies. Hospital Course eKl Castillo is a 70 year old male [...] consistent with sk (more content not included)...Normal [facility] DaytonMAGNESIUMon 82-15-2731Naqlpzaha [Mass/Vol]1.9 mg/dLNormal1.9-2.7UnElyria Memorial HospitalComment on above:Performed By: #### [id number] ####[facility] ([facility])[address] [place], [place] [address]KGTH GLUCOSE METER UNSOLICITED RESULTSon 58-85-4348Yqzfoow [Mass/Vol]128 mg/cFVhxr83-295JumovdloiiElyria Memorial HospitalComment on above:Order Comment: Waived Testing in the ED is performed under the ED CLIA certificate #[id number].Result Comment: bfiqyqp63Mgxeutdsv By: #### [id number] ####[facility] ([facility])[address] [place], [place] [address]dy 22-14-123421Vigtu Case Management Update Multidisciplinary rounds have been [...] discharge disposition appropriate for patient?: Yes New Consults:NormalAccess Hospital DaytonBASIC METABOLIC PANELon 86-60-0326Iuzjb gap [Moles/Vol]12 mmol/LNormal7-20UnElyria Memorial HospitalComment on above:Performed By: #### [id number] #### [facility] ([facility]) [address] [place], [place] [address]Rnawxmx [Mass/Vol]8.1 mg/dLLow8.6-10.3UnElyria Memorial HospitalComment on above:Performed By: #### [id number] #### [facility] ([facility] [address] [place] [address]Sthrghtu [Moles/Vol]110 mmol/DCicb74-667AwnhyyygjbElyria Memorial HospitalComment on above:Performed By: #### [id number] #### [facility] ([facility]) [address] [address]DY6 [Moles/Vol]21 mmol/AQhrted09-05MpybmonaenElyria Memorial HospitalComment on above:Performed By: #### [id number] #### [facility] ([facility]) [address] [place] [address]Damfxfbzgq [Mass/Vol]1.76 mg/dLHigh0.70-1.30UnElyria Memorial HospitalComment on above:Performed By: #### [id number] #### [facility] ([facility]) [address] [place], [place] [address]GERAOQFCPQ FILTRATION RATE ML/MIN/1.73 SQ M.WUYDQINQS39.6 mL/min/1.73m*2Low>60.0UnElyria Memorial HospitalComment on above:Result Comment: [facility]???s estimated glomerular filtration rate (eGFR) will no [...] affect anyone group of individuals.Performed By: #### [id number] #### [facility] ([facility]) [address] [place] [address]Pusxycw [Mass/Vol]153 mg/oWPntt19-089DiedaggozeElyria Memorial HospitalComment on above:Performed By: #### [id number] #### [facility] ([facility]) [address] [place], [place] [address]Khmosbrkr [Moles/Vol]4.1 mmol/LNormal3.5-5.1UnElyria Memorial HospitalComment on above:Performed By: #### [id number] #### [facility] ([facility]) [address] [place], [place] [address]Asmlgt [Moles/Vol]139 mmol/KOauwwz889-007UproyvapdhElyria Memorial HospitalComment on above:Performed By: #### [id number] #### [facility] ([facility]) [address] [place], [place] [address]Cosm nitrogen [Mass/Vol]26 mg/dLHigh7-25UnElyria Memorial HospitalComment on above:Performed By: #### [id number] #### [facility] ([facility]) [address] [place], [place] [address]UJOO NITROGEN/CREATININE (MASS RATIO) IN SER/PLAS14.8Normal Access Hospital DaytonComment on above:Performed By: #### [id number] #### [facility] ([facility]) [address] [place], [place] [address]KXDdd 07-25-5493Yciqkupneir distribution width (RBC) [Ratio]15.1 %High11.5-15.0UnElyria Memorial HospitalComment on above:Performed By: #### [id number] #### [facility] ([facility]) [address] [place], [place] [address]KWPQOVBSAHS MEAN CORPUSCULAR HEMOGLOBIN CONCENTRATION (G/DL) BY RPITSJVVB33.2 g/dLLow32.0-35.0UnElyria Memorial HospitalComment on above:Performed By: #### [id number] #### [facility] ([facility]) [address] [place], [place] [address]Ocpotqgmlh (Bld) [Volume fraction]26.3 %Low39.0-50.0UnElyria Memorial HospitalComment on above:Performed By: #### [id number] #### [facility] ([facility]) [address] [place], [place] [address]Rnjhtoyavo (Bld) [Mass/Vol]8.2 g/dLLow13.0-17.0UnElyria Memorial HospitalComment on above:Performed By: #### [id number] #### [facility] ([facility]) [address] [place] [address]BQH (RBC) [Entitic mass]30.3 snTegahe74.0-33.0UnElyria Memorial HospitalComment on above:Performed By: #### [id number] #### [facility] ([facility]) [address] [place], [place] [address]MPS (RBC) [Entitic vol]97.0 aWQkhepr58.0-98.0UnElyria Memorial HospitalComment on above:Performed By: #### [id number] #### [facility] ([facility]) [address] [place] [address]LWKWODCXV (10*3/UL) IN BLOOD AUTOMATED EWATW253 10*3/uLNormal 150-400UnElyria Memorial HospitalComment on above:Performed By: #### [id number] #### [facility] ([facility]) [address] [place], [place] [address]HEL (Bld) [#/Vol]2.71 10*6/uLLow4.20-5.70UnElyria Memorial HospitalComment on above:Performed By: #### [id number] #### [facility] ([facility]) [address] [place], [place] [address]HZC (Bld) [#/Vol]3.91 10*3/uLLow4.00-10.60UnElyria Memorial HospitalComment on above:Performed By: #### [id number] #### [facility] ([facility]) [address] [place], [place] [address]WGXBZMMYTtu 06-03-0010Vbyzzglan [Mass/Vol]2.0 mg/dLNormal1.9-2.7 Access Hospital DaytonComment on above:Performed By: #### [id number] #### [facility] ([facility]) [address] [place], [place] [address]EIYCLUIILN TIMEDon 81-46-9426DRYROOFCEB IN SER/PLAS - TIMED16.7 Low20.0-40.0UnElyria Memorial HospitalComment on above:Performed By: #### [id number] #### [facility] ,30on 87-64-744567Txm patient is Moderately Stable - Low risk [...] continued monitoring and treatment until appropriate for discharge.NormalUnElyria Memorial Hospital30Daily Case Management Update Multidisciplinary rounds have been [...] infection Level of Consultation Consultation and Management 06/15/252033NormalUniversUC Medical Center30The patient is Moderately Stable - Low risk of patient condition declining or worsening The patient's goals for the shift include rest The clinical goals for the shift include vss comfortNormalUniMiddletown HospitalBASIC METABOLIC PANELon 94-93-8652Uhhlu gap [Moles/Vol]10 mmol/L Normal7-20UnElyria Memorial HospitalComment on above:Performed By: #### [id number] #### [facility] ([facility]) [address] [place], [place] [address]Zatdagx [Mass/Vol]8.3 mg/dLLow8.6-10.3UnElyria Memorial HospitalComment on above:Performed By: #### [id number] #### [facility] ([facility]) [address] [place] [address]Hhahtpnr [Moles/Vol]109 mmol/VOtir49-382PrixfazaylElyria Memorial HospitalComment on above:Performed By: #### [id number] #### [facility] ([facility]) [address] [place] [address]AC0 [Moles/Vol]24 mmol/VHvnfqe66-42YgjqiqpscuElyria Memorial HospitalComment on above:Performed By: #### [id number] #### [facility] ([facility]) [address] [place] [address]Osxdrbstwl [Mass/Vol]1.70 mg/dLHigh0.70-1.30UnElyria Memorial HospitalComment on above:Performed By: #### [id number] #### [facility] ([facility]) [address] [place] [address]SRPDYJOAJV FILTRATION RATE ML/MIN/1.73 SQ M.CKBBBBLGD19.3 mL/min/1.73m*2Low>60.0UnElyria Memorial HospitalComment on above:Result Comment: [facility]???s estimated glomerular filtration rate (eGFR) will no [...] affect anyone group of individuals.Performed By: #### [id number] #### [facility] ([facility]) [address] [place] [address]Wubinis [Mass/Vol]92 mg/lOMosabd85-242SgidzzgigjElyria Memorial HospitalComment on above:Performed By: #### [id number] #### [facility] ([facility]) [address] [place], [place] [address]Jiqealpzy [Moles/Vol]4.1 mmol/LNormal3.5-5.1UnElyria Memorial HospitalComment on above:Performed By: #### [id number] #### [facility] ([facility]) [address] [place], [place] [address]Nfgwxe [Moles/Vol]139 mmol/NAolvin115-632ThaqftwfdpElyria Memorial HospitalComment on above:Performed By: #### [id number] #### [facility] ([facility]) [address] [place] [address]Pywm nitrogen [Mass/Vol]27 mg/dLHigh7-25UnElyria Memorial HospitalComment on above:Performed By: #### [id number] #### [facility] ([facility]) [address] [place], [place] [address]DAYB NITROGEN/CREATININE (MASS RATIO) IN SER/PLAS15.9Normal Access Hospital DaytonComment on above:Performed By: #### [id number] #### [facility] ([facility]) [address] [place] [address]MVMyo 70-02-0084Ompblichmqp distribution width (RBC) [Ratio]15.1 %High11.5-15.0UnElyria Memorial HospitalComment on above:Performed By: #### [id number] #### [facility] ([facility]) [address] [place], [place] [address]CBITHUJLKLN MEAN CORPUSCULAR HEMOGLOBIN CONCENTRATION (G/DL) BY GEHTRACGY84.9 g/dLLow32.0-35.0UnElyria Memorial HospitalComment on above:Performed By: #### [id number] #### [facility] ([facility]) [address] [facility] [place] [address]Puboibmjil (Bld) [Volume fraction]26.5 %Low39.0-50.0UnElyria Memorial HospitalComment on above:Performed By: #### [id number] #### [facility] ([facility]) [address] [place] [place] [address]Riwuxcprla (Bld) [Mass/Vol]8.2 g/dLLow13.0-17.0UnElyria Memorial HospitalComment on above:Performed By: #### [id number] #### [facility] [facility] ([facility]) [address] [place] [address]PAU (RBC) [Entitic mass]30.3 imZhlxkj07.0-33.0UnElyria Memorial HospitalComment on above:Performed By: #### [id number] #### [facility] ([facility]) [address] [place] [address]RSN (RBC) [Entitic vol]97.8 lXKkjdjb25.0-98.0Access Hospital DaytonComment on above:Performed By: #### [id number] #### [facility] ([facility]) [address] [place], [place] [address]MHSVHUXUC (10*3/UL) IN BLOOD AUTOMATED QQBCL004 10*3/uLLow 150-400UnElyria Memorial HospitalComment on above:Performed By: #### [id number] #### [facility] ([facility]) [address] [place] [address]KYH (Bld) [#/Vol]2.71 10*6/uLLow4.20-5.70UnElyria Memorial HospitalComment on above:Performed By: #### [id number] #### [facility] ([facility]) [address] [place] [address]RCO (Bld) [#/Vol]3.85 10*3/uLLow4.00-10.60UnElyria Memorial HospitalComment on above:Performed By: #### [id number] #### [facility] ([facility]) [address] [place] [address]NHYPMIQAHft 54-78-7709Zuujrzilk [Mass/Vol]1.9 mg/dLNormal1.9-2.7 Access Hospital DaytonComment on above:Performed By: #### [id number] ####[facility] ([facility])[address] [place], [place] [address]YPDZQWYCBZ TIMED on 56-86-2411RIMLDIZTSS IN SER/PLAS - TIMED8.7Low20.0-40.0UnElyria Memorial HospitalComment on above:Performed By: #### [id number] ####[facility] ([facility])[address] [place], [place] [address]LMPPU METABOLIC PANELon 06-15-2025 Anion gap [Moles/Vol]9 mmol/LNormal7-20UnElyria Memorial Hospital Comment on above:Performed By: #### [id number] #### [facility] ([facility]) [address] [place], [place] [address]Dfdegcf [Mass/Vol]8.2 mg/dLLow8.6-10.3UnElyria Memorial HospitalComment on above:Performed By: #### [id number] #### [facility] ([facility]) [address] [place], [place] [address]Bnhrwhgb [Moles/Vol]106 mmol/AUqrtwu82-366KfzwksfanfElyria Memorial HospitalComment on above:Performed By: #### [id number] #### [facility] ([facility]) [address] [place], [place] [address]FO3 [Moles/Vol]24 mmol/RWjpmlw89-75OzqgbtetejElyria Memorial HospitalComment on above:Performed By: #### [id number] #### [facility] ([facility]) [address] [place], [place] [address]Clydpsdsjm [Mass/Vol]1.99 mg/dLHigh0.70-1.30UnElyria Memorial HospitalComment on above:Performed By: #### [id number] #### [facility] ([facility]) [address] [place], [place] [address]AMTYNTOYFL FILTRATION RATE ML/MIN/1.73 SQ M.CWOZJEXCU23.0 mL/min/1.73m*2Low>60.0UnElyria Memorial HospitalComment on above:Result Comment: [facility]???s estimated glomerular filtration rate (eGFR) will no [...] group of individuals.Performed By: #### [id number] #### [facility] ([facility]) [address] [place], [place] [address]Mrxozrh [Mass/Vol]121 mg/rJKsjg01-717SgvupjdcwnElyria Memorial HospitalComment on above:Performed By: #### [id number] #### [facility] ([facility]) [address] [place], [place] [address]Msesvkggu [Moles/Vol]3.9 mmol/LNormal3.5-5.1UnElyria Memorial HospitalComment on above:Performed By: #### [id number] #### [facility] ([facility]) [address] [place], [place] [address]Pfxhtt [Moles/Vol]135 mmol/YOlh462-262NnzbqdhvytElyria Memorial HospitalComment on above:Performed By: #### [id number] #### [facility] ([facility]) [address] [place], [place] [address]Lfaz nitrogen [Mass/Vol]29 mg/dLHigh7-25UnElyria Memorial HospitalComment on above:Performed By: #### [id number] #### [facility] ([facility]) [address] [place] [place], [place] [address]TBWY NITROGEN/CREATININE (MASS RATIO) IN SER/PLAS14.6Normal Access Hospital DaytonComment on above:Performed By: #### [id number] #### [facility] ([facility]) [address] [place], [place] [address]YXCAK CULTUREon 96-87-8972Cihikhyg identified Cx Nom (Bld)No growth at 5 daysNormalUniMiddletown HospitalComment on above:Order Comment: Prior to antibiotic administrationPerformed By: #### [id number] ####[facility] ([facility])[address] [place] [address]RWM WITH AUTO DIFFERENTIALon 53-76-5095Eeasggdzs (Bld) [#/Vol]0.03 10*3/uLNormal0.00-0.20 Access Hospital DaytonComment on above:Performed By: #### [id number] ####[facility] ([facility])[address] [facility] [place], [place] [address]Vfsfuqbfo/100 WBC (Bld)0.8 %Normal0.0-1.0UnElyria Memorial HospitalComment on above: Performed By: #### [id number] ####[facility] ([facility])[address] [facility] [place]ENTERJam[place], [place] [address]Rdnburuiilx (Bld) [#/Vol]0.16 10*3/uLNormal0.00-0.50 Access Hospital DaytonComment on above:Performed By: #### [id number] ####[facility] ([facility])[address] [place], [place] [address]Uhvbajawvxz/100 WBC (Bld)4.1 %Normal0.0-6.0UnElyria Memorial HospitalComment on above: Performed By: #### [id number] ####[facility] ([facility])[address] [place], [place] [address]Ihbdnvnebph distribution width (RBC) [Ratio]14.9 %Normal 11.5-15.0UnElyria Memorial HospitalComment on above:Performed By: #### [id number] ####[facility] ([facility])[address] [place] [address] ERYTHROCYTE MEAN CORPUSCULAR HEMOGLOBIN CONCENTRATION (G/DL) BY DVZSPFWRX68.7 g/bRFrtgtd45.0-35.0UnElyria Memorial HospitalComment on above:Performed By: #### [id number] ####[facility] ([facility])[address] [facility] [place], [place] [address]Xjkmnpufhj (Bld) [Volume fraction]26.0 %Low39.0-50.0UnElyria Memorial HospitalComment on above:Performed By: #### [id number] ####[facility] ([facility])[address] [place], [place] [address]Lckkmujuod (Bld) [Mass/Vol]8.5 g/dLLow 13.0-17.0UnElyria Memorial HospitalComment on above:Performed By: #### [id number] ####[facility] ([facility])[address] [facility] [place] [place], [place] [address]Bibyznap granulocytes (Bld) [#/Vol]0.11 10*3/uLNormal0.00-0.20UnElyria Memorial HospitalComment on above:Performed By: #### [id number] ####[facility] ([facility])[address] [place] [place] [address]Cguuosjl granulocytes/100 WBC (Bld)2.8 %High0.0-1.0UnElyria Memorial HospitalComment on above:Performed By: #### [id number] ####[facility] ([facility])[address] [facility] [place] [address] Lymphocytes (Bld) [#/Vol]0.68 10*3/uLLow1.20-4.00UnElyria Memorial HospitalComment on above:Performed By: #### [id number] ####[facility] ([facility])[address] [place] [address]Mmyysgoearl/100 WBC (Bld)17.2 %Low 20.0-45.0UnElyria Memorial HospitalComment on above:Performed By: #### [id number] ####[facility] ([facility])[address] [place], [place] [address]ANL (RBC) [Entitic mass]30.7 qmJmldfo46.0-33.0UnElyria Memorial Hospital Comment on above:Performed By: #### [id number] ####[facility] ([facility])[address] [place] [address]BYG (RBC) [Entitic vol]93.9 yFTtqjos59.0-98.0 Access Hospital DaytonComment on above:Performed By: #### [id number] ####[facility] ([facility])[address] [place] [address]Qmrwpblgu (Bld) [#/Vol]0.31 10*3/uLNormal0.10-1.00UnElyria Memorial HospitalComment on above:Performed By: #### [id number] ####[facility] ([facility])[address] [address]Xxyklidei/100 WBC (Bld)7.8 %Normal5.0-12.0UnElyria Memorial HospitalComment on above:Performed By: #### [id number] ####[facility] ([facility])[address] [place] [address]Zqdmtoqmmmt (Bld) [#/Vol] 2.66 10*3/uLNormal1.60-7.60UnElyria Memorial HospitalComment on above: Performed By: #### [id number] ####[facility] ([facility])[address] [address]Gshwghqoxvu/100 WBC (Bld)67.3 %Lredur75.0-72.0UnElyria Memorial HospitalComment on above:Performed By: #### [id number] ####[facility] ([facility])[address] [place] [address]WYAP (PER 100 WBCS) BY AUTOMATED COUNT0.0 %Lposgg5YdexqlwmftElyria Memorial HospitalComment on above: Performed By: #### [id number] ####[facility] ([facility])[address] [place] [address]VXIOFUBCR (10*3/UL) IN BLOOD AUTOMATED VTTQU083 10*3/uLLow 150-400UnElyria Memorial HospitalComment on above:Performed By: #### [id number] ####[facility] ([facility])[address] [place] [address]MRJ (Bld) [#/Vol]2.77 10*6/uLLow4.20-5.70UnElyria Memorial HospitalComment on above:Performed By: #### [id number] ####[facility] ([facility])[address] [place] [address]OBD (Bld) [#/Vol]3.95 10*3/uLLow4.00-10.60UnElyria Memorial HospitalComment on above:Performed By: #### [id number] ####[facility] ([facility])[address] [place] [address]DP HEAD WO IV CONTRASTon 10-75-7112ZF HEAD WO IV CONTRASTCT HEAD WO IV [...] in this report. Electronically signed: Harsh Andrade MD.NormalUnBarnesville Hospital CenterEDNURSon 98-44-5369HSPOORBbhhmq surgeon from prior fem-pop. Sent in a picture of wound starting to have puss drainage and redness. Had a fall prior to coming in as well fell onto right side and hit the right shoulder. Denies loc or hitting headNormalUniversity of [facility] EDPROVon 72-51-3248CBUMZBOgcdqzvodwAccess Hospital Dayton Marylou LI [facility] [id number] EMERGENCY DEPARTMENT ENCOUNTER ED Room: 4172/4172- CHIEF [...] has a past medical history of Cancer (CMS/[facility]), Chronic kidney disease, Coronary artery disease, Dyspnea [...] mouth in the morning and at bedtime. ibkhufdiafd-omqwezkza-apcxjwyv (Trelegy Ellipta) 100-62.5-25 mcg blister with device [...] disease, chronic, stage IV (GFR 15-29 ml/min) ([facility]); Essential hypertension; Hyperkalemia traZODone (Desyrel) 100 mg [...] Abdomen is soft. Musculo (more content not included)...NormalMagruder Memorial Hospital [id number] Attestation signed by Italo Lyles MD at 06/20/2025 8:47 PM I discussed the patient with the resident who was admitted the night. There is apparently possible infection or possible dehiscence in the right groin. This will be evaluated in the morning. Patient admitted. Started on IV antibiotics. [facility] Vascular/Endovascular Surgery Roentgenologist Complaint cellulitis History and Present Illness Kel [...] file Physical Activity: Inactive (02/28/2025) Received from [facility] Exercise Vital Sign Days of Exercise per Week: 0 days Minutes of Exercise per Session: 0 min Stress: Stress Concern Present (02/28/2025) Received from [facility] of Occupational Health - Occupational Stress Questionnaire Feeling of Stress : To some extent Social Connections: Socially Isolated (02/28/2025) Received from [facility] Social Connection and Isolation Panel Frequency of Communication with Friends and Family: More than three times a week Frequency of Social Gatherings with Friends and Family: Once a week Attends [employer] Services: Never Active [...] and atraumatic. Eyes: Extra (more content not included)...NormalUnElyria Memorial Hospital LACTIC ACID WITH 4 HOUR REFLEXon 54-50-3510CYPBUMG (MMOL/L) IN SER/PLAS0.8 mmol/LNormal0.5-2.2UnElyria Memorial HospitalComment on above:Performed By: #### [id number] #### [facility] ([facility]) [address] [place], [place] [address]ZQFEW CULTUREon 89-97-9165qjIWIdozn [Susc]ResistantUnElyria Memorial HospitalComment on above:Order Comment: Cefepime (when cefepime JOSE value is <=2 ug/ml) and meropenem (when cefepime is JOSE >=4 ug/ml and meropenem JOSE value is susceptible) are the preferred therapies for this organism due to moderate-high risk of AmpC beta-lactam production. Fluoroquinolones and trimethoprim-sulfamethoxazole may be considered as alternative intravenous or oral therapy options.Performed By: #### [id number] ####[facility] ([facility])[address] [place], [place] [address]Huekbpct [Susc] <=1SusceptibleUnElyria Memorial HospitalComment on above:Order Comment: Cefepime (when cefepime JOSE value is <=2 ug/ml) and meropenem (when cefepime is JOSE >=4 ug/ml and meropenem JOSE value is susceptible) are the preferred therapies for this organism due to moderate-high risk of AmpC beta-lactam production. Fluoroquinolones and trimethoprim-sulfamethoxazole may be considered as alternative intravenous or oral therapy options.Performed By: #### [id number] ####[facility] ([facility])[address] [place], [place] [address]Uixvzicbmmikc [Susc]<=0.25SusceptibleUnElyria Memorial HospitalComment on above:Order Comment: Cefepime (when cefepime JOSE value is <=2 ug/ml) and meropenem (when cefepime is JOSE >=4 ug/ml and meropenem JOSE value is susceptible) are the preferred therapies for this organism due to moderate-high risk of AmpC beta- lactam production. Fluoroquinolones and trimethoprim-sulfamethoxazole may be considered as alternative intravenous or oral therapy options.Performed By: #### [id number] ####[facility] ([facility])[address] [place] [address] levoFLOXacin [Susc]<=0.5SusceptibleUnthe orthopedic specialty hospital Hampton Medical CenterComment on above:Order Comment: Cefepime (when cefepime JOSE value is <=2 ug/ml) and meropenem (when cefepime is JOSE >=4 ug/ml and meropenem JOSE value is susceptible) are the preferred therapies for this organism due to moderate-high risk of AmpC beta-lactam production. Fluoroquinolones and trimethoprim-sulfame thoxazole may be considered as alternative intravenous or oral therapy options. Performed By: #### [id number] ####[facility] ([facility])[address] [place], [place] [address]Xbqminwje [Susc]<=0.5SusceptibleUnElyria Memorial HospitalComment on above:Order Comment: Cefepime (when cefepime JOSE value is <=2 ug/ml) and meropenem (when cefepime is JOSE >=4 ug/ml and meropenem JOSE value is susceptible) are the preferred therapies for this organism due to moderate-high risk of AmpC beta-lactam production. Fluoroquinolones and trimethoprim-sulfame thoxazole may be considered as alternative intravenous or oral therapy options. Performed By: #### [id number] ####[facility] ([facility])[address] [place], [place] [address]Fzkruwx comment (Unsp spec) [Interp]CEFENormalUniMiddletown HospitalComment on above:Order Comment: Cefepime (when cefepime JOSE value is <=2 ug/ml) and meropenem (when cefepime is JOSE >=4 ug/ml and meropenem JOSE value is susceptible) are the preferred therapies for this organism due to moderate-high risk of AmpC beta-lactam production. Fluoroquinolones and trimethoprim-sulfamethoxazole may be considered as alternative intravenous or oral therapy options.Performed By: #### [id number] ####[facility] ([facility])[address] [place], [place] [address]Lhbptsaqkvns+Sulfamethoxazole [Susc] <=0.5/9.5SusceptibleAccess Hospital DaytonComment on above:Order Comment: Cefepime (when cefepime JOSE value is <=2 ug/ml) and meropenem (when cefepime is JOSE >=4 ug/ml and meropenem JOSE value is susceptible) are the preferred therapies for this organism due to moderate-high risk of AmpC beta- lactam production. Fluoroquinolones and trimethoprim-sulfamethoxazole may be considered as alternative intravenous or oral therapy options.Performed By: #### [id number] ####[facility] ([facility])[address] [place] [address] Follow-Upon [id number]-[id number] JoseKel 1955 M Date Provider Department Center 06/14/2025 [id number]-PRGKSIRAIS ARRINGTON HVCVASENDO OR [facility] Family History Problem Relation Age of Onset Diabetes Mother Family Status - Relation Status Age at Mother Level of Service:[address] [place] POSTOP FOLLOW UP VISIT RELATED TO ORIGINAL PX Reason for Visit and Comments: Post-op Problem [295018]NormalSouthview Medical CenterPROVon 20-21-7049ZZEQTXCqmxdbc of Present Illness Chief Complaint Patient presents [...] Drug use: Defer Karan Hawkins MD 06/12/25 0231NormalUniversUC Medical CenterCBCon 06-09-2025 Erythrocyte distribution width (RBC) [Ratio]14.3 %Umzrgm94.5-15.0UnElyria Memorial HospitalComment on above:Performed By: #### [id number] #### [facility] ,ERYTHROCYTE MEAN CORPUSCULAR HEMOGLOBIN CONCENTRATION (G/DL) BY HZRRSMQTF32.0 g/oGHqgkil49.0-35.0UnElyria Memorial HospitalComment on above:Performed By: #### [id number] #### [facility] ,Hematocrit (Bld) [Volume fraction]31.6 %Low39.0-50.0UnElyria Memorial HospitalComment on above:Performed By: #### [id number] #### [facility] ,Hemoglobin (Bld) [Mass/Vol]10.1 g/dLLow13.0-17.0UnElyria Memorial HospitalComment on above:Performed By: #### [id number] #### [facility] ,MCH (RBC) [Entitic mass]30.4 qdBqcnrw77.0-33.0UnElyria Memorial HospitalComment on above:Performed By: #### [id number] #### [facility] ,MCV (RBC) [Entitic vol]95.2 tCQnjovg60.0-98.0UnElyria Memorial HospitalComment on above:Performed By: #### [id number] #### [facility] ,PLATELETS (10*3/UL) IN BLOOD AUTOMATED [id number] 10*3/rQSrx329-898WdicjyunfgElyria Memorial HospitalComment on above:Performed By: #### [id number] #### [facility] ,RBC (Bld) [#/Vol]3.32 10*6/uLLow4.20-5.70UnElyria Memorial Hospital Comment on above:Performed By: #### [id number] #### [facility] ,WBC (Bld) [#/Vol]8.42 10*3/uLNormal4.00-10.60UnElyria Memorial HospitalComment on above:Performed By: #### [id number] #### [facility] ,DSon 72-84-6083WDKrvdslbhk Provider: Italo Lyles MD Discharge Provider: No att. providers found [...] 100-62.5-25 mcg blister with device Generic drug: afnvwxthfgk-jlcewexit-bjlctamr ASK your doctor about these medications Instructions Last Dose Given Next Dose Due nitroglycerin 0.4 mg SL tablet Commonly known as: Nitrostat Where to Get Your Medications These medications were sent to [facility] - [place], [place] - [address] [place] [address] [place] [address], [facility] [address] acetaminophen 500 mg tablet rivaroxaban 2.5 mg tablet Activity: activity as tolerated Diet: regular diet Time spent on discharge: >[address] Noa Watson MD for the opportunity to be involved in this patient's care.[facility] CenterURSNOTArizona State Hospital 06-09-2025 NURSNOTEPatient Name: Kel Castillo : 1955 [...] Babak Garcia RN Rapid Response Team Nurse [phone] 06/09/2025 12:12 [facility] HospitalNURSNOTEPatient Name: Kel Castillo : 1955 Primary Care [...] nurse, but encouraged to reach out to [facility] if anything changes over night. Justo Cabrera RN Rapid Response Team Nurse [phone] 06/09/2025 12:47 [facility]30on 25-47-832707Paa patient is Moderately Stable - Low risk [...] - Adult Goal: Maintains hematologic stability Outcome: ProgressingNormalUniMiddletown Hospital30Problem: Musculoskeletal - Adult Goal: Return mobility to safest level of function Outcome: Progressing Problem: Metabolic/Fluid and Electrolytes - Adult Goal: Electrolytes maintained within normal limits Outcome: Progressing Goal: Hemodynamic stability and optimal renal function maintained Outcome: Progressing Goal: Glucose maintained within prescribed range Outcome: Progressing Problem: Hematologic - Adult Goal: Maintains hematologic stability Outcome: ProgressingNormalUniMiddletown Hospital30Problem: Activity Intolerance/Impaired Mobility Goal: Mobility/activity is maintained [...] - Adult Goal: Maintains hematologic stability Outcome: ProgressingNormalUniversUC Medical Center36on Engine Wiper spoke with patient's daughter and daughter verbally understood.Normal [facility] Hospital DaytonBASIC METABOLIC PANELon 09-44-7614Wsbnb gap [Moles/Vol]12 mmol/LNormal7-20UnElyria Memorial HospitalComment on above:Performed By: #### [id number] ####[facility] ([facility])[address] [place], [place] [address]Mgjlygj [Mass/Vol]9.2 mg/dLNormal8.6-10.3UnElyria Memorial HospitalComment on above:Performed By: #### [id number] ####[facility] ([facility])[address] [place], [place] [address]Gtmwfcpp [Moles/Vol]105 mmol/LNormal 98-107UnElyria Memorial HospitalComment on above:Performed By: #### [id number] ####[facility] ([facility])[address] [place], [place] [address]CN3 [Moles/Vol]24 mmol/OValxjl59-18LnxuluivjrElyria Memorial HospitalComment on above:Performed By: #### [id number] ####[facility] ([facility])[address] [place], [place] [address]Reuqrtdvho [Mass/Vol]1.78 mg/dLHigh0.70-1.30UnElyria Memorial HospitalComment on above:Performed By: #### [id number] ####[facility] ([facility])[address] [place] [address]MBTQBKUDWT FILTRATION RATE ML/MIN/1.73 SQ M.MRYXKEQVQ27.0 mL/min/1.73m*2Low>60.0UnElyria Memorial HospitalComment on above:Result Comment: [facility]???s estimated glomerular filtration rate (eGFR) will no [...] anyone group of individuals.Performed By: #### [id number] ####[facility] ([facility])[address], [place] [address]Pibagfn [Mass/Vol]117 mg/iZFvll52-379IzomewyjwmElyria Memorial HospitalComment on above:Performed By: #### [id number] ####[facility] ([facility])[address] [place] [address]Nsrzxoovz [Moles/Vol]4.8 mmol/LNormal3.5-5.1UnElyria Memorial HospitalComment on above:Performed By: #### [id number] ####[facility] ([facility])[address] [place] [address]Krpblk [Moles/Vol]136 mmol/L Rnxblc819-334EnpgckkmteElyria Memorial HospitalComment on above:Performed By: #### [id number] ####[facility] ([facility])[address], [place] [address]Nqaw nitrogen [Mass/Vol]23 mg/dLNormal7-25UnElyria Memorial HospitalComment on above:Performed By: #### [id number] ####[facility] ([facility])[address] [place] [address]DPMA NITROGEN/CREATININE (MASS RATIO) IN SER/PLAS12.9Normal Access Hospital DaytonComment on above:Performed By: #### [id number] ####[facility] ([facility])[address] [place] [address]ERJjo 06-08-2025 Erythrocyte distribution width (RBC) [Ratio]14.0 %Pwqjsx98.5-15.0UnElyria Memorial HospitalComment on above:Performed By: #### [id number] ####[facility] ([facility])[address] [place] [address]HYYMPCXMPNO MEAN CORPUSCULAR HEMOGLOBIN CONCENTRATION (G/DL) BY CCNLKROQN22.7 g/cAOinjtt35.0-35.0 Access Hospital DaytonComment on above:Performed By: #### [id number] ####[facility] ([facility])[address] [place], [place] [address]Zsgxdaighc (Bld) [Volume fraction]27.6 %Low39.0-50.0UnElyria Memorial HospitalComment on above:Performed By: #### [id number] ####[facility] ([facility])[address], [place] [address]Uqvvomifen (Bld) [Mass/Vol]9.3 g/dLLow13.0-17.0UnElyria Memorial HospitalComment on above:Performed By: #### [id number] ####[facility] ([facility])[address] [place], [place] [address]XDF (RBC) [Entitic mass] 30.3 kxYqtmdt12.0-33.0UnElyria Memorial HospitalComment on above: Performed By: #### [id number] ####[facility] ([facility])[address] [place] [address]NCP (RBC) [Entitic vol]89.9 xFHvupqf60.0-98.0UnElyria Memorial HospitalComment on above:Performed By: #### [id number] ####[facility] ([facility])[address] [place] [address]FENVXLFZE (10*3/UL) IN BLOOD AUTOMATED [id number] 10*3/rJFcs567-487GhwrbwyninElyria Memorial Hospital Comment on above:Performed By: #### [id number] ####[facility] ([facility])[address] [place] [address]NNZ (Bld) [#/Vol]3.07 10*6/uLLow4.20-5.70UnElyria Memorial HospitalComment on above:Performed By: #### [id number] ####[facility] ([facility])[address] [place] [address]GCS (Bld) [#/Vol]9.13 10*3/uLNormal4.00-10.60UnElyria Memorial HospitalComment on above: Performed By: #### [id number] ####[facility] ([facility])[address] [place] [address]IOVQGXXWGeu 58-12-4501Iinkpywnk [Mass/Vol]2.2 mg/dLNormal 1.9-2.7UnElyria Memorial HospitalComment on above:Performed By: #### [id number] ####[facility] ([facility])[address] [place] [address] PHOSPHORUSon 34-66-4991Gyqkglqlx [Mass/Vol]4.8 mg/dLNormal2.5-5.0UnElyria Memorial HospitalComment on above:Performed By: #### [id number] #### [facility] ([facility]) [address] [place] [address]xb 12-90-218829Dfw patient is Moderately Stable - Low risk of patient condition declining or worsening The patient's goals for the shift include: pain management, comfort The clinical goals for the shift include: hemodynamically stable, pain managementNormalUniversity Green Cross HospitalABG COMPLETE UNSOLICITED RESULTSon 21-88-6217G-ONJ5PmtajjJxuapngmdp Green Cross HospitalComment on above:Result Comment: C^IncalculablePerformed By: #### [id number] #### [facility] BLOOD BANK ,Base excess Calc (Bld) [Moles/Vol]-0.9000 mmol/LNormal-2.0-3.0UnElyria Memorial HospitalComment on above:Performed By: #### [id number] #### [facility] B[facility]OD [facility] ,CALCIUM IONIZED, ARTERIAL1.49 mmol/LHigh1.13-1.32UnElyria Memorial HospitalComment on above:Performed By: #### [id number] #### [facility] BLOOD B[facility] ,CARBOXYHEMOGLOBIN, ARTERIAL2.1 %NormalUnElyria Memorial Hospital Comment on above:Performed By: #### [id number] #### [facility] BLOOD B[facility] ,Chloride [Moles/Vol]109 mmol/MQuul73-276VfokgbyudfAccess Hospital [place] Comment on above:Performed By: #### [id number] #### [facility] BLOOD B[facility] ,CO2 (Bld) [Partial pressure]37 mm[Hg]Vighah54-03AdqgzixxdmElyria Memorial HospitalComment on above:Performed By: #### [id number] #### [facility] BLOOD B[facility] ,DEOXYGENATED HEMOGLOBIN, ARTERIAL2.4 %NormalAccess Hospital Dayton Comment on above:Performed By: #### [id number] #### [facility] B[facility]OD [facility] ,Glucose [Mass/Vol]137 mg/cUGrgu86-56MftjdfdsswAccess Hospital DaytonComment on above:Performed By: #### [id number] #### [facility] BLOOD [facility] ,HCO3 (Bld) [Moles/Vol]23.5 mmol/CPzvdhw42.0-28.0UnElyria Memorial HospitalComment on above:Performed By: #### [id number] #### [facility] B[facility]OD [facility] ,Hematocrit (Bld) [Volume fraction]31 %Ppg66-82VuyeqnjjzxAccess Hospital DaytonComment on above:Performed By: #### [id number] #### [facility] BLOOD [facility] ,Hemoglobin (Bld) [Mass/Vol]10.4 g/dLNormalUniMiddletown Hospital Comment on above:Performed By: #### [id number] #### [facility] B[facility]OD [facility] ,LACTATE, ARTERIAL1.10 mmol/LNormal0.36-1.39[facility] [place] Comment on above:Performed By: #### [id number] #### [facility] B[facility]OD [facility] ,METHEMOGLOBIN, ARTERIAL0.8 %Normal0.0-1.5UnElyria Memorial Hospital Comment on above:Performed By: #### [id number] #### [facility] BLOOD [facility] ,Oxygen (Bld) [Partial pressure]76 mm[Hg]Dug11-800WvavtsxstdElyria Memorial HospitalComment on above:Performed By: #### [id number] #### [facility] B[facility]OD [facility] ,OXYGEN SATURATION (%) IN ARTERIAL BLOOD97.5 %Iufycw31.0-100.0Access Hospital DaytonComment on above:Performed By: #### [id number] #### [facility] BLOOD [facility] ,OXYGENATED HEMOGLOBIN IN ARTERIAL BLOOD94.6 %Uttzjq45.0-97.0UnElyria Memorial HospitalComment on above:Performed By: #### [id number] #### [facility] B[facility]OD [facility] ,PAO2/GGS9GrbmfiUyswmugrdx Green Cross HospitalComment on above:Result Comment: C^IncalculablePerformed By: #### [id number] #### [facility] BLOOD [facility] ,PF RATIONormalAccess Hospital DaytonComment on above:Result Comment: C^IncalculablePerformed By: #### [id number] #### [facility] B[facility]OD [facility] ,PH OF ARTERIAL BLOOD7.82Rzwdbi7.35-7.45UnElyria Memorial Hospital Comment on above:Performed By: #### [id number] #### [facility]OD [facility] ,Potassium [Moles/Vol]4.4 mmol/LNormal3.4-5.2[facility] Comment on above:Performed By: #### [id number] #### [facility]OD [facility] ,Sodium [Moles/Vol]137 mmol/ZGuurgv984-652YbfrbgqqoaElyria Memorial Hospital Comment on above:Performed By: #### [id number] #### [facility] BLOOD [facility] ,VHGENWTNJBC80.0 ???CNormalAccess Hospital DaytonComment on above: Performed By: #### [id number] #### [facility]OD [facility] ,BASIC METABOLIC PANELon 12-14-0002Wlkay gap [Moles/Vol]12 mmol/LNormal7-20 Access Hospital DaytonComment on above:Performed By: #### [id number] ####[facility] ([facility])[address], [place] [address]Rcgread [Mass/Vol]9.3 mg/dLNormal8.6-10.3UnElyria Memorial HospitalComment on above:Performed By: #### [id number] ####[facility] ([facility])[address] [place], [place] [address]Azwksbnb [Moles/Vol]107 mmol/IQvagvy67-651WetsrncsyjElyria Memorial HospitalComment on above:Performed By: #### [id number] ####[facility] ([facility])[address], [place] [address]EV8 [Moles/Vol]23 mmol/LNormal 21-31UnElyria Memorial HospitalComment on above:Performed By: #### [id number] ####[facility] ([facility])[address] [place], [place] [address]Cqaoialzsp [Mass/Vol]1.74 mg/dLHigh0.70-1.30UnElyria Memorial HospitalComment on above:Performed By: #### [id number] ####[facility] ([facility])[address], [place] [address]OQLFFSMXKP FILTRATION RATE ML/MIN/1.73 SQ M.AATPKNUVJ75.1 mL/min/1.73m*2Low>60.0UnElyria Memorial HospitalComment on above:Result Comment: [facility]???s estimated glomerular filtration rate (eGFR) will no [...] anyone group of individuals.Performed By: #### [id number] ####[facility] ([facility])[address] [place] [address]Qfppbwr [Mass/Vol]127 mg/xVBxqt68-093QgminfqdlvElyria Memorial HospitalComment on above:Performed By: #### [id number] ####[facility] ([facility])[address] [place], [place] [address]Kabgftgli [Moles/Vol]4.1 mmol/L Normal3.5-5.1UnElyria Memorial HospitalComment on above:Performed By: #### [id number] ####[facility] ([facility])[address] [place] [address] Sodium [Moles/Vol]138 mmol/ZKsxegm396-759KtojhrelamElyria Memorial Hospital Comment on above:Performed By: #### [id number] ####[facility] ([facility])[address] [place], [place] [address]Fsfx nitrogen [Mass/Vol]23 mg/dLNormal7-25 Access Hospital DaytonComment on above:Performed By: #### [id number] ####[facility] ([facility])[address] [place], [place] [address]DNUL NITROGEN/CREATININE (MASS RATIO) IN SER/PLAS13.2NormalUnElyria Memorial HospitalComment on above:Performed By: #### [id number] ####[facility] ([facility])[address] [place], [place] [address]HWLqd 90-09-9330Ciaandchbpz distribution width (RBC) [Ratio]14.0 %Hkkymu31.5-15.0UnElyria Memorial HospitalComment on above:Performed By: #### [id number] #### [facility] ([facility]) [address] [place], [place] [address]HHULFRJRBVH MEAN CORPUSCULAR HEMOGLOBIN CONCENTRATION (G/DL) BY BHMSLJZYR55.2 g/uSWllski24.0-35.0UnElyria Memorial HospitalComment on above:Performed By: #### [id number] #### [facility] ([facility]) [address] [place] [place], [place] [address]Jqdpfhgnas (Bld) [Volume fraction]29.2 %Low39.0-50.0UnElyria Memorial HospitalComment on above:Performed By: #### [id number] #### [facility] ([facility]) [address] [place], [place] [address]Gpceiutube (Bld) [Mass/Vol]9.7 g/dLLow13.0-17.0UnElyria Memorial HospitalComment on above:Performed By: #### [id number] #### [facility] ([facility]) [address] [place], [place] [address]HZBMHFIL PLATELET FRACTION %0.7 %Low0.8-6.3UnElyria Memorial HospitalComment on above:Performed By: #### [id number] #### [facility] ([facility]) [address] [place], [place] [address]NIB (RBC) [Entitic mass]30.4 gyDpgfvx24.0-33.0UnElyria Memorial HospitalComment on above:Performed By: #### [id number] #### [facility] ([facility]) [address] [place] [place], [place] [address]YMY (RBC) [Entitic vol]91.5 bHHofzsh38.0-98.0UnElyria Memorial HospitalComment on above:Performed By: #### [id number] #### [facility] ([facility]) [address] [place], [place] [address]LPZTNEDPD (10*3/UL) IN BLOOD AUTOMATED [id number] 10*3/uLLow 150-400UnElyria Memorial HospitalComment on above:Performed By: #### [id number] #### [facility] ([facility]) [address] [place] [place], [place] [address]QSC (Bld) [#/Vol]3.19 10*6/uLLow4.20-5.70UnElyria Memorial HospitalComment on above:Performed By: #### [id number] #### [facility] ([facility]) [address] [place], [place] [address]GFU (Bld) [#/Vol]8.07 10*3/uLNormal4.00-10.60UnElyria Memorial HospitalComment on above:Performed By: #### [id number] #### [facility] ([facility]) [address] [place], [place] [address]TTEORRVHL - TISSUE EXAMon [id number] AP CASE REPORTNormal Access Hospital DaytonComment on above:Order Comment: Pre-op diagnosis: Lower extremity pain, bilateral [M79.604, M79.605] Severe claudication [I73.9] Encounter for pre-operative examination [Z01.818]Result Comment: Surgical Pathology Case: [id number] Authorizing Provider: Italo Lyles MD Collected: 06/07/2025 174 Ordering Location: [facility] Main Operating Room Received: 06/08/2025 0806 Pathologist: Pop Salinas MD Specimen: Groin, Right Common femoral artery , Profunda Artery Plaque and others Performed By: #### [id number] #### [facility] ([facility]) [address] [place], [place] [address]ZYY AP CLINICAL INFORMATIONNormalUniversUC Medical CenterComment on above:Order Comment: Pre-op diagnosis: Lower extremity pain, bilateral [M79.604, M79.605] Severe claudication [I73.9] Encounter for pre-operative examination [Z01.818]Result Comment: Post-Op Diagnoses M79.604, M79.605 - Lower extremity pain, bilateral [ICD-10-CM] I73.9 - Severe claudication [ICD-10-CM] Z01.818 - Encounter for pre-operative examination [ICD-10-CM]Performed By: #### [id number] #### [facility] ([facility]) [address] [place], [place] [address]EFK AP GROSS DESCRIPTIONA. Groin.NormalUnElyria Memorial HospitalComment on above:Order Comment: Pre-op diagnosis: Lower [...] cm in diameter with 40-50% luminal narrowing. University Manager sections havebeen submitted in one cassette following decalcification. The remainder of the specimen is contained within its formalin container. Rom Iglesias, PGY-2Performed By: #### [id number] #### [facility] ([facility]) [address] [place], [place] [address]VQO AP MICROSCOPIC DESCRIPTIONMicroscopic examination performed. [facility]rville HospitalComment on above:Order Comment: Pre-op diagnosis: Lower extremity pain, bilateral [M79.604, M79.605] Severe claudication [I73.9] Encounter for pre-operative examination [Z01.818]Performed By: #### [id number] #### [facility] ([facility]) [address], [place] [address]CZQ AP REPORT FINAL DIAGNOSIS NARRATIVENormalUniMiddletown HospitalComment on above:Order Comment: Pre-op diagnosis: Lower extremity pain, bilateral [M79.604, M79.605] Severe claudication [I73.9] Encounter for pre-operative examination [Z01.818]Result Comment: A. Right common femoral artery and profunda artery plaque, endarterectomy: - Calcified atherosclerotic plaque with osteoid metaplasia. at 0824 EDTPerformed By: #### [id number] #### [facility] ([facility]) [address] [place], [place] [address]WPxy 05-39-3114UOAzehthu Of Present Illness Kel Castillo is a [...] has had an HUBER study done at [facility] on 02/23/25 where right PT was, 0.55. right DP 0.53, right TBI 0.32, left PT 0.6, left DP 0.63, left TBI 0.51. He had a aortogram done by Dr. 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 Patient is taking [...] Resource Strain: Low Risk (02/28/2025) Received from [facility] Tower59 Overall Financial Resource Strain (CARDIA) Difficulty of Paying Living Expenses: Not very hard Food Insecurity: No Food Insecurity (03/10/2025) [facility] Hunger Scre[facility] Within the past 12 months we worried whether our food would run out before we got money to buy more.: Never True Within the past 12 months the food we bought just didn't last and we didn't have money to get more.: Never True Transportation Needs: No Transportation Needs (02/28/2025) Received from [facility] PRAPARE - Transportation Lack of Transportation (Medical): No Lack of Transportation (Non-Medical): No Physical Activity: Inactive (02/28/2025) Received from [facility] Exercise Vital Sign Days of Exercise per Week: 0 days Minutes of Exercise per Session: 0 min Stress: Stress Concern Present (02/28/2025) Received from [facility] Occupational Health - Occupational Stress Questionnaire Feeling of Stress : To some extent Social Connections: Socially Isolated (02/28/2025) Received from [facility] Social Connection and Isolation Panel [NHANES] Frequency of Communication with Friends and Family: More than three times a week Frequency of Social Gatherings with Friends and Family: Once a week Attends Yarsani Services: Never Active Member of Clubs or Organizations: No Attends Club or Organization Meetings: Never Marital Status: Intimate Partner Violence: Not At Risk (02/28/2025) Received from [facility] Humiliation, Afraid, Rape, and Kick questionnaire Fear of Current or Ex-Partner: No Emotionally Abused: No Physically Abused: No Sexually Abused: No Housing Stability: Low Risk (02/28/2025) Received from [facility] Housing Stability Vital Sign Unable to [...] (L) 05/31/2025 BCR 18.3 (more content not included)...NormalUnElyria Memorial Hospital MAGNESIUMon 94-29-7774Djgekdisv [Mass/Vol]1.5 mg/dLLow1.9-2.7UnElyria Memorial HospitalComment on above:Performed By: #### [id number] ####[facility] ([facility])[address] [place], [place] [address]YJJMQZTJpw 06-07-2025 NURSNOTEPrior to surgery bilateral posterior tibial and dorsalis pedis pulses assessed with positive pulses detected via doppler @1520 Post surgery bilateral posterior tibial and dorsalis pedis pulses assessed with positive pulses detected via doppler @1815NormalUniversUC Medical CenterOPNOTEon 13-54-0734HYBHCAJhnnl Femoral- Popliteal Bypass with 8mm Propaten Graft above the knee (R), ENDARTERECTOMY, COMMON FEMORAL ARTERY, PROFUNDA , AND (R) Operative Note Date: 06/07/2025 Location: [facility] OR Name: Kel Castillo, : 1955, Diagnosis Pre-op Diagnosis * Lower extremity pain, bilateral [M79.604, M79.605] * Severe claudication [I73.9] * Encounter for pre-operative examination [Z01.818] Post-op Diagnosis * Lower extremity pain, bilateral [M79.604, M79.605] * Severe claudication [I73.9] * Encounter for pre-operative examination [Z01.818] Procedures Right Femoral- Popliteal Bypass with 8mm Propaten [place] above [place] [address] - [place] BYPASS W/VEIN FEMORAL-POPLITEAL ENDARTERECTOMY, COMMON FEMORAL ARTERY, [...] A Groin Tissue HISTOLOGY - TISSUE EXAM Italo Lyles MD 06/07/25 5533 Description: Right Common femoral artery , Profunda Artery Plaque and others Implants Type Name Action Serial No. Collagen GRAFT,THIN-WALL,8X80CM,70CM - [id number] - [id number] Implanted [id number] Staff: Dog Trainer: Carlos Rivera RN Relief Dog Trainer: Michelle Snow RN Relief Scrub: Brina Sanchez CST Scrub Person: Mariana Peralta CST; Ana Irizarry [employer] Supervisor: Maria Ines Gilmore RN Orientee Dog Trainer: eBcca Maldonado RN Indications: Kel Castillo is an [...] was identified, vessels loops were placed around [facility], SFA and PFA, heparin was administered and [facility] was clamped higher just below inguinal ligament were the artery was soft and free of plaque. Distal [facility] was then opened up with 11 blade scalpel in longitudinal fashion and arteriotomy was extended caudally with potz scissors to the level of the bifurcation. Extensive amount of plaque was noted in this area, endarterectomy of [facility], profunda and ostium of SFA was performed. [...] hemodynamically stable. Condition: stable Omer Nathan MDNormalUniversity Green Cross HospitalPHOSPHORUS on 46-26-2739Tcwulwhqo [Mass/Vol]4.1 mg/dLNormal2.5-5.0UnElyria Memorial HospitalComment on above:Performed By: #### [id number] #### [facility] ([facility]) [address] [place], [place] [address]DPRU ACTIVATED CLOTTING TIME UNSOLICITED RESULTSon 08-46-4329HWQ ACTIVATED CLOTTING [id number] bykDtih67-957ArlozutclvElyria Memorial Hospital Comment on above:Performed By: #### [id number] #### [facility] ([facility]) [address] [place], [place] [address]LFGC GLUCOSE METER UNSOLICITED RESULTSon 06-18-4567Shlenix [Mass/Vol]87 mg/yNGyhpmg56-220CtubcomzwmElyria Memorial HospitalComment on above:Order Comment: Pre-op diagnosis: Lower extremity pain, bilateral [M79.604, M79.605] Severe claudication [I73.9] Encounter for pre-operative examination [Z01.818]Result Comment: acastil5 Performed By: #### [id number] #### [facility] ([facility]) [address] [place], [place] [address]97ql [id number], daughter needs to know if patient is cleared for surgery by Dr. WestUnElyria Memorial HospitalBASIC METABOLIC PANELon 29-19-7088Ftudk gap [Moles/Vol]12 mmol/LNormal7-20UnElyria Memorial HospitalComment on above:Performed By: #### [id number] #### [facility] BLOOD BANK ,Calcium [Mass/Vol]8.9 mg/dLNormal8.6-10.3UnElyria Memorial Hospital Comment on above:Performed By: #### [id number] #### [facility] BLOOD BANK ,Chloride [Moles/Vol]108 mmol/VZnsp02-995RoaemuecejElyria Memorial Hospital Comment on above:Performed By: #### [id number] #### [facility] BLOOD BANK ,CO2 [Moles/Vol]25 mmol/ZCvxvqm55-60AnzfowdhtcElyria Memorial HospitalComment on above:Performed By: #### [id number] #### [facility] BLOOD BANK ,Creatinine [Mass/Vol]1.97 mg/dLHigh0.70-1.30UnElyria Memorial Hospital Comment on above:Performed By: #### [id number] #### [facility] BLOOD B[facility] ,GLOMERULAR FILTRATION RATE ML/MIN/1.73 SQ M.WEBIOJBKG62.4 mL/min/1.73m*2Low >60.0UnElyria Memorial HospitalComment on above:Result Comment: [facility]???s estimated glomerular filtration rate (eG FR) will [...] anyone group of individuals. Performed By: #### [id number] #### [facility] BLOOD BANK ,Glucose [Mass/Vol]99 mg/tUMiexko03-084UtdxohpcajAccess Hospital Dayton Comment on above:Performed By: #### [id number] #### [facility] BLOOD BANK ,Potassium [Moles/Vol]5.1 mmol/LNormal3.5-5.1UnElyria Memorial Hospital Comment on above:Performed By: #### [id number] #### [facility] BLOOD BANK ,Sodium [Moles/Vol]140 mmol/LKbwqmx468-131JtrnwtotfnElyria Memorial Hospital Comment on above:Performed By: #### [id number] #### [facility] BLOOD BANK ,Urea nitrogen [Mass/Vol]36 mg/dLHigh7-25[facility] Comment on above:Performed By: #### [id number] #### [facility] BLOOD BANK ,UREA NITROGEN/CREATININE (MASS RATIO) IN SER/PLAS18.3NormalUniMiddletown HospitalComment on above:Performed By: #### [id number] #### [facility] BLOOD BANK ,Labon 45-75-6199Lec44886993 JoseKel 1955 M Date Provider Department [place] 05/31/2025 2245-[facility] OPD LAB RESOURCE [facility] OPD [facility] C Family History Problem Relation Age of Onset Diabetes Mother Family Status - Relation Status Age at MotherNoalUniMiddletown HospitalBASIC METABOLIC PANELon 05-54-4971Qtjkw gap [Moles/Vol]12 mmol/LNormal7-20UnElyria Memorial HospitalComment on above:Performed By: #### [id number] ####[facility] ([facility])[address] [place], [place] [address]Vddjzot [Mass/Vol]9.5 mg/dLNormal 8.6-10.3UnElyria Memorial HospitalComment on above:Performed By: #### [id number] ####[facility] ([facility])[address] [place] [address]Ytgidpnb [Moles/Vol]100 mmol/KPnlgvw74-558WmnkyrkkgkElyria Memorial HospitalComment on above:Performed By: #### [id number] ####[facility] ([facility])[address] [place], [place] [address]YI2 [Moles/Vol]26 mmol/OTcdkfp87-05QtwejbdspuElyria Memorial HospitalComment on above:Performed By: #### [id number] ####[facility] ([facility])[address] [place], [place] [address]Tffrjazhgh [Mass/Vol]1.92 mg/dLHigh 0.70-1.30UnElyria Memorial HospitalComment on above:Performed By: #### [id number] ####[facility] ([facility])[address] [place], [place] [address]XEDCWZOGXY FILTRATION RATE ML/MIN/1.73 SQ M.GKPEOTREI00.6 mL/min/1.73m*2Low>60.0UnElyria Memorial HospitalComment on above:Result Comment: [facility]???s estimated glomerular filtration rate (eGFR) will no [...] group of individuals. Performed By: #### [id number] ####[facility] ([facility])[address] [place], [place] [address]Vbhadai [Mass/Vol]81 mg/yUQcgrph19-589WppgyqcqmrElyria Memorial HospitalComment on above:Performed By: #### LAB15 ####[facility] ([facility])[address] [place], [place] [address]Adiwmrlnm [Moles/Vol]5.7 mmol/LHigh 3.5-5.1UnElyria Memorial HospitalComment on above:Performed By: #### LAB15 ####[facility] ([facility])[address] [place] [address]Lntafh [Moles/Vol]132 mmol/RDgs325-495QxoprqxofvElyria Memorial HospitalComment on above:Performed By: #### LAB15 ####[facility] ([facility])[address] [place] [address]Eouw nitrogen [Mass/Vol]26 mg/dLHigh7-25UnElyria Memorial HospitalComment on above:Performed By: #### [id number] ####[facility] ([facility])[address] [place] [address]FMBX NITROGEN/CREATININE (MASS RATIO) IN SER/PLAS13.5NormalUniversUC Medical CenterComment on above: Performed By: #### [id number] ####[facility] ([facility])[address] [place] [address]NDVzv 91-59-2873Ehvkoplzhkw distribution width (RBC) [Ratio]14.5 % Etqdhh20.5-15.0UnElyria Memorial HospitalComment on above:Performed By: #### [id number] #### [facility] ([facility]) [address] [place] [address]EHWBGXJVSBP MEAN CORPUSCULAR HEMOGLOBIN CONCENTRATION (G/DL) BY IBAJTUFFK32.1 g/hYHkzkpv47.0-35.0UnElyria Memorial HospitalComment on above:Performed By: #### [id number] #### [facility] ([facility]) [address] [place] [address]Yuzenlmqlb (Bld) [Volume fraction]36.6 %Low39.0-50.0UnElyria Memorial HospitalComment on above:Performed By: #### [id number] #### [facility] ([facility]) [address] [place] [address]Imamrjffyt (Bld) [Mass/Vol]12.1 g/dLLow13.0-17.0UnElyria Memorial HospitalComment on above:Performed By: #### [id number] #### [facility] ([facility]) [address] [place] [address]REXNKHWW PLATELET FRACTION %0.9 %Normal0.8-6.3UnElyria Memorial HospitalComment on above:Performed By: #### [id number] #### [facility] ([facility]) [address] [place] [address]VUG (RBC) [Entitic mass]30.6 niBxmwhf30.0-33.0UnElyria Memorial HospitalComment on above:Performed By: #### [id number] #### [facility] ([facility]) [address] [place] [place] [address]SSA (RBC) [Entitic vol]92.4 cJPhtufy40.0-98.0UnElyria Memorial HospitalComment on above:Performed By: #### [id number] #### [facility] ([facility]) [address] [place], [place] [address]FGUZNRKUA (10*3/UL) IN BLOOD AUTOMATED [id number] 10*3/uLLow 150-400UnElyria Memorial HospitalComment on above:Performed By: #### [id number] #### [facility] ([facility]) [address] [place] [address]AAP (Bld) [#/Vol]3.96 10*6/uLLow4.20-5.70UnElyria Memorial HospitalComment on above:Performed By: #### [id number] #### [facility] ([facility]) [address] [place] [address]QQC (Bld) [#/Vol]7.48 10*3/uLNormal4.00-10.60UnElyria Memorial HospitalComment on above:Performed By: #### [id number] #### [facility] ([facility]) [address] [place] [address]Vkziz [id number] Kel Castillo 1955 M Date Provider Department Center 05/26/2025 2245-[facility] OPD LAB RESOURCE [facility] OPD [facility] Family History Problem Relation Age of Onset Diabetes Mother Family Status - Relation Status Age at MotherNormalUniversUC Medical CenterMAGNESIUMon 64-25-5403Bzvlbcgaq [Mass/Vol]1.8 mg/dLLow1.9-2.7UnElyria Memorial HospitalComment on above:Performed By: #### [id number] ####[facility] ([facility])[address] [place], [place] [address]FCONMUIWQDJZ, URINE, RANDOMon 16-20-5843Tqexand DL <= 20 mg/L (U) [Mass/Vol]mg/dLNormalUniMiddletown HospitalComment on above: Performed By: #### [id number] #### [facility] ([facility]) [address] [place], [place] [address]Yjgiccljnb (U) [Mass/Vol]24.0 mg/wGBsy80-931QqzfxnqkgxElyria Memorial HospitalComment on above:Performed By: #### [id number] #### [facility] ([facility]) [address] [place], [place] [address]IVGQZKKCLGBN/CREATININE (MG/G) IN URINENormalUniMiddletown HospitalComment on above:Result Comment: Unable to calculate Performed By: #### [id number] #### [facility] ([facility]) [address] [place], [place] [address]Tyivfy Visiton 19-74-1033Zjxrfp-up [id number] Kel Castillo 1955 M Date Provider Department Center 05/26/2025 207-DEBBIE MIRANDA [facility] NEPH [facility] Family History Problem Relation Age of Onset Diabetes Mother Family Status - Relation Status Age at Mother Level of Service:[address] [place] OFFICE/OUTPATIENT NEW HIGH MDM 60 MINUTES Reason for Visit and Comments: Chronic Kidney Disease [176] - New patientNormalUniversity Green Cross HospitalPHOSPHORUSon 75-89-2380Kloapijuo [Mass/Vol]3.8 mg/dLNormal2.5-5.0 [facility] Hospital DaytonComment on above:Performed By: #### [id number] ####[facility] ([facility])[address] [place], [place] [address]ZDR, INTACTon 84-53-9032BDPKWKRBGS INTACT (PG/ML) IN SER/PLAS39 pg/mAQnglek45-83ThyeebausbElyria Memorial HospitalComment on above:Performed By: #### [id number] #### [facility] BLOOD BANK ,URINALYSIS WITH MICROSCOPICon 29-11-9136XFZUMJIBK, TOTAL PRESENCE IN URINE NegativeNormalNegativeUnElyria Memorial HospitalComment on above: Performed By: #### [id number] ####[facility] ([facility])[address] [place], [place] [address]Leeltvf (U)ClearNormalClearUnElyria Memorial HospitalComment on above:Performed By: #### [id number] ####[facility] ([facility])[address] [place], [place] [address]Ndgou (U)Light-YellowNormalColorless, Yellow, Light-YellowUnElyria Memorial HospitalComment on above: Performed By: #### [id number] ####[facility] ([facility])[address] [place], [place] [address]YVLWJQK (MG/DL) IN URINENormalNormalNormalUniversUC Medical CenterComment on above:Performed By: #### [id number] ####[facility] ([facility])[address] [place], [place] [address]LAFQUKKGXQ PRESENCE IN URINENegativeNormalNegativeUnElyria Memorial HospitalComment on above: Performed By: #### [id number] ####[facility] ([facility])[address] [place], [place] [address]Svtjovy Ql (U)NegativeNormalNegativeUnElyria Memorial HospitalComment on above:Performed By: #### [id number] ####[facility] ([facility])[address] [place], [place] [address]IYGSYMEOS ESTERASE PRESENCE IN URINE BY TEST STRIPNegativeNormalNegativeUnElyria Memorial HospitalComment on above:Performed By: #### [id number] ####[facility] ([facility])[address] [place], [place] [address]KDGOVEH PRESENCE IN URINENegativeNormalNegativeUnElyria Memorial HospitalComment on above:Performed By: #### [id number] ####[facility] ([facility])[address] [place], [place] [address]pQ (U)5.5 [pH]Normal 5.0-8.0UnElyria Memorial HospitalComment on above:Performed By: #### [id number] ####[facility] ([facility])[address] [place], [place] [address]Dziuhtn (U) [Mass/Vol]NegativeNormalNegativeUnElyria Memorial HospitalComment on above:Performed By: #### [id number] ####[facility] ([facility])[address], [place] [address]FMH (#/HPF) IN URINE SEDIMENTNone SeenNormalNone Seen, 0-2 Access Hospital DaytonComment on above:Performed By: #### [id number] ####[facility] ([facility])[address] [place], [place] [address]Rzeffvox gravity (U) [Rel density]1.108Kqv9.010-1.030UnElyria Memorial HospitalComment on above:Performed By: #### [id number] ####[facility] ([facility])[address], [place] [address]RZTXBHRO EPITHELIAL CELLS (#/LPF) IN URINE SEDIMENTOccasional NormalNone Seen, Occasional, FewUnElyria Memorial HospitalComment on above:Performed By: #### [id number] ####[facility] ([facility])[address] [place], [place] [address]AJAQFTSCWMQR (MG/DL) IN URINENormalNormalNormalUniversUC Medical CenterComment on above:Performed By: #### [id number] ####[facility] ([facility])[address] [place], [place] [address]FLR (LEUKOCYTE) (#/HPF) IN URINE SEDIMENTNone SeenNormalNone Seen, 0-2UnElyria Memorial HospitalComment on above:Performed By: #### [id number] ####[facility] ([facility])[address] [place], [place] [address]NODKOSW D 25 HYDROXYon 05-26-2025 CALCIDIOL (25 [place] VITAMIN D3) (NG/ML) IN SER/PLAS39.0 ng/vOSkgitb93.0-80.0 Access Hospital DaytonComment on above:Result Comment: >80.0 Toxicity possiblePerformed By: #### [id number] #### [facility] ([facility]) [address] [facility] [place], [place] [address]iz [id number] daughter Nini called, notified of patient abnormal labs including K 5.5, BUN 30 and creatinine 2.24. Patient has appointment with [facility] nephrology tomorrow (05/26). Instructed to increase hydration and reduce potassium dietary. Also, advised if patient develops chest pain, palpitations, SOB, decreased urine output, or altered mental status; he is to seek medical attention immediately. Nini verbalized understanding of plan. Patient will need to replete labs prior to procedure.NormalUnElyria Memorial HospitalTelephoneon [id number] Kel Castillo 1955 M Date Provider Department Center 05/25/2025 [address]-YOZYDSPENCER GILMAN [facility] PAC OR Medical C Family History Problem Relation Age of Onset Diabetes Mother Family Status - Relation Status Age at MotherNormalUniSelect Medical Specialty Hospital [facility] 92-43-0603NUYVFRFHD PARTIAL THROMBOPLASTIN TIME IN PPP BY COAGULATION ASSAY27.5 SecondsNormal 25.0-35.0UnElyria Memorial HospitalComment on above:Result Comment: Clinical significance of the APTT is questionable in the presence of heparin. Performed By: #### [id number] ####[facility] ([facility])[address], [place] [address]CQMSG METABOLIC PANELon 44-16-9663Huoyl gap [Moles/Vol]12 mmol/LNormal7-20UnElyria Memorial HospitalComment on above:Performed By: #### [id number] ####[facility] ([facility])[address] [place] [address] Calcium [Mass/Vol]8.8 mg/dLNormal8.6-10.3UnElyria Memorial Hospital Comment on above:Performed By: #### [id number] ####[facility] ([facility])[address] [place], [place] [address]Laduqvta [Moles/Vol]105 mmol/RFcawjq31-432 Access Hospital DaytonComment on above:Performed By: #### [id number] ####[facility] ([facility])[address], [place] [address]SM5 [Moles/Vol] 25 mmol/BHuzdme46-94LnfdoryqrtElyria Memorial HospitalComment on above: Performed By: #### [id number] ####[facility] ([facility])[address], [place] [address]Sqfafbyrsu [Mass/Vol]2.24 mg/dLHigh0.70-1.30UnElyria Memorial HospitalComment on above:Performed By: #### [id number] ####[facility] ([facility])[address], [place] [address]OTGGIYANTI FILTRATION RATE ML/MIN/1.73 SQ M.KPKXDGSSD97.4 mL/min/1.73m*2Low>60.0UnElyria Memorial Hospital Comment on above:Result Comment: [facility]???s estimated glomerular filtration rate (eGFR) will no [...] anyone group of individuals.Performed By: #### [id number] ####[facility] ([facility])[address] [place] [address]Zgwjdgp [Mass/Vol]81 mg/oZXbzena99-537VqbzqcnbalElyria Memorial HospitalComment on above:Performed By: #### [id number] ####[facility] ([facility])[address] [place] [address]Ssciwrskl [Moles/Vol]5.5 mmol/LHigh3.5-5.1UnElyria Memorial HospitalComment on above:Performed By: #### [id number] ####[facility] ([facility])[address] [place] [address]Tnncyu [Moles/Vol]136 mmol/L Liarhm458-019EobzpucvsoElyria Memorial HospitalComment on above:Performed By: #### [id number] ####[facility] ([facility])[address], [place] [address]Onmx nitrogen [Mass/Vol]30 mg/dLHigh7-25UnElyria Memorial HospitalComment on above:Performed By: #### [id number] ####[facility] ([facility])[address] [place] [address]WLQA NITROGEN/CREATININE (MASS RATIO) IN SER/PLAS13.4Normal Access Hospital DaytonComment on above:Performed By: #### [id number] ####[facility] ([facility])[address] [place] [address]ULIwv 05-24-2025 Erythrocyte distribution width (RBC) [Ratio]14.5 %Wrxapx28.5-15.0UnElyria Memorial HospitalComment on above:Performed By: #### [id number] ####[facility] ([facility])[address] [place] [address]BGZMQLZYRMG MEAN CORPUSCULAR HEMOGLOBIN CONCENTRATION (G/DL) BY THFEBRISH52.5 g/dLLow32.0-35.0 Access Hospital DaytonComment on above:Performed By: #### [id number] ####[facility] ([facility])[address] [place] [address]Bfflohmttb (Bld) [Volume fraction]36.8 %Low39.0-50.0UnElyria Memorial HospitalComment on above:Performed By: #### [id number] ####[facility] ([facility])[address] [place] [address]Wevefrszwt (Bld) [Mass/Vol]11.6 g/dLLow13.0-17.0UnElyria Memorial HospitalComment on above:Performed By: #### [id number] ####[facility] ([facility])[address] [place] [address]TBW (RBC) [Entitic mass] 30.3 qyWauuji33.0-33.0UnElyria Memorial HospitalComment on above: Performed By: #### [id number] ####[facility] ([facility])[address] [place] [address]SVC (RBC) [Entitic vol]96.1 kKUnuyfr43.0-98.0UnElyria Memorial HospitalComment on above:Performed By: #### [id number] ####[facility] ([facility])[address] [place] [address]ORLQXHGFE (10*3/UL) IN BLOOD AUTOMATED CJEBZ397 10*3/cAOab557-416RonfcutjoyElyria Memorial Hospital Comment on above:Performed By: #### [id number] ####[facility] ([facility])[address] [place] [address]UKR (Bld) [#/Vol]3.83 10*6/uLLow4.20-5.70UnElyria Memorial HospitalComment on above:Performed By: #### [id number] ####[facility] ([facility])[address] [place] [address]NRT (Bld) [#/Vol]5.58 10*3/uLNormal4.00-10.60UnElyria Memorial HospitalComment on above: Performed By: #### [id number] ####[facility] ADAN)[address] [place], [place] [address]LYly 25-77-3045VSMpp-Anesthesia Clinic Service Date: 05/24/25 Chief Complaint: PAC visit prior to upcoming procedure: right fem to above knee popliteal bypass with graft as well as left lower extremity angiogram with possible intervention for SFA disease under general anesthesia. LOVE Castillo is a pleasant 70 y.o. male [...] well as calcified plaque of the right [facility], infrarenal aorta, bilateral iliacs. Initial plans for an noninvasive abdominal aortography and bilateral lower extremity angiogram was made due to progressive lower extremity pain/symptoms. However, the procedure was subsequently canceled due to patients elevated serum creatinine level of 2.18. Patient's daughter states, patient follows with Public Information Relations Manager Dr. Toscano at [facility]; however does have appointment with [facility] nephrology on 05/1525 for a [...] Cardiac cath on 05/11/2025 revealed severe three-vessel buckland CAD. There are 2 out of 3 [...] Last Dose Status albuterol 90 mcg/actuation inhaler [id number] Yes INHALE 1 PUFF BY MOUTH EVERY 4 HOURS NEEDED Ele ProviderMD 05/24/2025 Active amLODIPine (Norvasc) 5 mg tablet [id number] Yes Take 1 tablet by mouth two times daily. Historical ProviderMD 05/24/2025 Active aspirin 81 mg EC tablet [id number] Yes Take 1 tablet by mouth in the morning. Historical ProviderMD 05/24/2025 Active atorvastatin (Lipitor) 80 mg tablet [id number] Yes Take 80 mg by mouth at bedtime. Ele ProviderMD 05/24/2025 Active buPROPion XL (Wellbutrin XL) 300 mg 24 hr tablet [id number] Yes Use 1 tablet in the mouth or throat in the morning. Ele ProviderMD 05/24/2025 Active busPIRone (Buspar) 15 mg tablet [id number] Yes Take 1 tablet by mouth in the morning and at bedtime. Ele ProviderMD 05/24/2025 Active clopidogrel (Plavix) 75 mg tablet [id number] Yes Take 75 mg by mouth in the morning. Ele ProviderMD 05/24/2025 Active famotidine (Pepcid) 20 mg tablet [id number] Yes Take 20 mg by mouth twice a day. Ele ProviderMD 05/24/2025 Active fenofibrate micronized (Antara) 43 mg capsule [id number] Yes Take 1 capsule by mouth in the morning and at bedtime. Historical ProviderMD 05/24/2025 Active ferrous sulfate 325 (65 Fe) MG tablet [id number] No Take 325 mg by mouth in the morning. Patient not taking: Reported on 05/24/2025 Historical Provider, Not Taking Active ivszjkoooyu-pjjajgpfs-dgfqumsd (Trelegy Ellipta) 100-62.5-25 mcg blister with device [id number] Yes Inhale 1 puff in the morning. Historical Provider, 05/24/2025 Active lisinopril 10 mg tablet [id number] Yes Take 10 mg by mouth in the morning. Historical Provider, 05/24/2025 Active metoprolol tartrate (Lopressor) 50 mg tablet [id number] Yes Take 50 mg by mouth two times daily. Historical Provider, 05/24/2025 Active nitroglycerin (Nitrostat) 0.4 mg SL tablet [id number] Yes Historica (more content not included)...NormalUnElyria Memorial HospitalLabon 91-48-1116Hzo [id number] Kel Castillo 1955 M Date Provider Department Center 05/24/2025 2244-[facility] MP LAB RESOURCE MP DRAW Medical Pavi Family History Problem Relation Age of Onset Diabetes Mother Family Status - Relation Status Age at MotherNormalUniversUC Medical CenterMRSA/MSSA DNA NASALon 05-24-2025 MRSA DNANegativeNormalNegativeUnElyria Memorial HospitalComment on above:Order Comment: Testing methodology is an [...] does not preclude nasal colonization.Performed By: #### [id number] ####[facility] ([place])[address] [place], [place] [address]VJIZ DNANegativeNormalNegativeUnElyria Memorial HospitalComment on above:Order Comment: Testing methodology is an [...] does not preclude nasal colonization.Performed By: #### [id number] ####[facility] ([place])[address] [place], [place] [address]UIXAZYY-CAXwe 89-20-6759NML IN PPP BY COAGULATION ASSAY1.33Dvautd8.90-1.10 Access Hospital DaytonComment on above:Result Comment: ACC[facility] RECOMMENDED INR FOR [...] OPTIMAL THERAPEUTIC RANGE. CHEST 1995;108:231S-246S.Performed By: #### [id number] #### [facility] ([place]) [address] [place], [place] [address]UIFOKCGXQOS TIME (PT) IN PPP BY COAGULATION ASSAY13.3 Seconds Sjlsky16.3-14.8UnElyria Memorial HospitalComment on above:Performed By: #### [id number] #### [facility] ([place]) [address] [place], [place] [address]Ano-Rsjtachzd Testingon 89-46-6967Mts-Admission [id number] Kel Castillo 1955 Date Provider Department [place] 05/24/202516768-DZR-XCBKMEHTAU CLINI*[facility] PAC OR Medical C Family History Problem Relation Age of Onset Diabetes Mother Family Status - Relation Status Age at MotherNormalUniversity of Childress Regional Medical CenterTYPE AND SCREENon 32-12-2365OO SCREENNegativeNormalUniversUC Medical CenterComment on above: Performed By: #### [id number] #### [facility] BLOOD BANK ,ABO group Nom (Bld)BNormalAccess Hospital DaytonComment on above: Performed By: #### [id number] #### [facility] BLOOD BANK ,RH TYPE IN BLOODPositiveNormalUniversUC Medical CenterComment on above:Performed By: #### [id number] #### [facility] BLOOD BANK ,Telephoneon [id number] Kel Castillo 1955 M Date Provider Department Center 05/17/2025 DEBBIE RICH [facility] NEPH [facility] Family History Problem Relation Age of Onset Diabetes Mother Family Status - Relation Status Age at MotherNormalUniversity of Childress Regional Medical CenterAbstracton 71-26-6735Yrfvbbuq [id number] Kel Castillo 1955 M Date Provider Department Center 05/14/2025 ITALO ROMERO [facility] AUTH [facility] C Family History Problem Relation Age of Onset Diabetes Mother Family Status - Relation Status Age at MotherNormalUniversity of Childress Regional Medical CenterANESon 73-09-9037XBWY Attestation signed by Sarah Tolliver MD at 05/11/2025 8:18 AM Sarah Tolliver MD, MPH, FACC, [facility], FS Interventional Cardiology Pager Email: [email or web address] Patient: Kel Castillo Procedure Information Date/Time: 05/11/25 1030 Procedure: Coronary angiography (Left) - call daughter glenda [phone] with instructions Location: [facility] PUT IN BEAT ADJUSTER 3 / [facility]ULAR [facility] (Cath) Providers: Sarah Tolliver MD [...] attending and fellow. Additional Equipment RequestsNormalUniversity of Childress Regional Medical CenterHPon 94-87-1578KD Attestation signed by Sarah Tolliver MD at [...] me. Additional Comments: Sarah Tolliver MD, MPH, [facility], [facility], [facility] Interventional Cardiology Pager Email: [email or web address] History Of Present Illness Kel Castillo [...] Resource Strain: Low Risk (02/28/2025) Received from [facility] Overall Financial Resource Strain (CARDIA) Difficulty of Paying Living Expenses: Not very hard Food Insecurity: No Food Insecurity (03/10/2025) [facility] Hunger [facility] Within the past 12 months we worried whether our food would run out before we got money to buy more.: Never True Within the past 12 months the food we bought just didn't last and we didn't have money to get more.: Never True Transportation Needs: No Transportation Needs (02/28/2025) Received from [facility] PRAPARE - Transportation Lack of Transportation (Medical): No Lack of Transportation (Non-Medical): No Physical Activity: Inactive (02/28/2025) Received from [facility] Exercise Vital Sign Days of Exercise per Week: 0 days Minutes of Exercise per Session: 0 min Stress: Stress Concern Present (02/28/2025) Received from [facility] [employer] Occupational Health - Occupational Stress Questionnaire Feeling of Stress : To some extent Social Connections: Socially Isolated (02/28/2025) Received from [facility] Social Connection and Isolation Panel [NHANES] Frequency of Communication with Friends and Family: More than three times a week Frequency of Social Gatherings with Friends and Family: Once a week Attends Yarsani Services: Never Active Member of Clubs or Organizations: No Attends Club or Organization Meetings: Never Marital Status: Intimate Partner Violence: Not At Risk (02/28/2025) Received from [facility] Humiliation, Afraid, Rape, and Kick questionnaire Fear of Current or Ex-Partner: No Emotionally Abused: No Physically Abused: No Sexually Abused: No Housing Stability: Low Risk (02/28/2025) Received from [facility] Housing Stability Vital Sign Unable to [...] Physical Exam Vitals reviewed. (more content not included)...[facility] HospitalNURSNOTEon 03-70-1399SRUQIXRFXX educated pt on d/c instructions. This included: [...] wheeled off of unit with all of belongings.[facility]rville HospitalCNOVon 95-11-5334EPPKNaxnec Visit (NEIND4) SAMIR CASTILLO ([id number]) 1955 M Date Time Provider Department 04/29/25 [...] Eun Trent DO 04/29/2025 4:05 PM Signed [facility] General Neurology Follow up/ Established patient visit Individuals who were included in, or assisted with the encounter were: Samir Castillo Eun Black DO Chief Complaint/Issues: Samir Castillo is a 70 year old male seen in the [facility] for General Neurology for: Memory loss [...] Current Outpatient Medications Medicati (more content not included)...NormalMercy Health St. Rita'S Medical CentervelandOrders Onlyon 29-72-0750Shzjnk [id number] Kel Castillo 1955 Date Provider Department Center 04/29/2025 22924-IEWVUZBYPUFINN PATTERSON [facility] Family History Problem Relation Age of Onset Diabetes Mother Family Status - Relation Status [facility] at [facility] CenterNormalUniMiddletown Hospital36on 23-75-168541C asked Jacki in the lab if this could be done with Dr. Tolliver prior to his vascular surgery scheduled for 06/07/2025. He has no openings as of right now. Dr. Tolliver, would you be ok with Dr. Silvestre doing the cath? (Not even sure if that would be ok with the patient and his daughter but I thought I'd start with you.)NormalAccess Hospital [facility]36Please let the patient and his daughter know [...] daughter states she is not happy with [facility] and would like a recommendation. I did advise her I would send a referral to [facility] Neph[facility] and she stated that [...] father need the heart cath prior. Please advise.[facility] HospitalTelephoneon [id number] JoseKel 1955 M Date Provider Department Center 2025 [id number]-VAAJRGPDXLFINN PATTERSON SAMI Rasmussen Family History Problem Relation Age of Onset Diabetes Mother Family Status - Relation Status [facility] HospitalOr[facility] Onlyon 92-65-1035Yobpdk [id number] Demetri Castilloardo 1955 M Date Provider Department Center 04/27/2025 [id number], HISTORICAL SAMI [facility] Family History Problem Relation Age of Onset Diabetes Mother Family Status - Relation Status Age at [facility]36on 57-55-800642Mquadtrfi stress test result from 04/20/2025: Sarah Tolliver [...] Tolliver. He has an apt today at [facility] with vascular surgery. Order for limited echo faxed to [facility] HospitalOffice Visiton 47-64-2737Eolact-up [id number] Kel Castillo 1955 M Date Provider Department Center 04/21/2025 Twila-ITALO LYLES HVCVASENDO [facility] Family History Problem Relation Age of Onset Diabetes Mother Family Status - Relation Status Age at Mother Level of Service:87249 [place] OFFICE/OUTPATIENT NEW MODERATE MDM 45 MINUTES Reason for Visit and Comments: Consult [484] - PAD, leg painNormalUniversity of Childress Regional Medical CenterOrders Onlyon 13-93-2417Eqsews [id number] Kel Castillo 1955 M Date Provider Department Center 04/20/2025 [id number]-GBZYXUYFQIFINN PATTERSON CARD [place] [facility] Family History Problem Relation Age of Onset Diabetes Mother Family Status - Relation Status Age at MotherNormalUniversity [facility] Cross Hospital36on 96-83-642734Hf calling about bmp results, they are in media please adviseNormalUniversity Green Cross HospitalANESon 65-47-4582DXEH Attestation signed by Sarah Tolliver MD at 04/08/2025 9:29 AM Sarah Tolliver MD, MPH, [facility], [facility], [facility] Interventional Cardiology Pager Email: [email or web address] Patient: Kel Castillo Procedure Information Date/Time: 04/08/2530 Procedures: Aortogram - PC APPROVED AO/ RUNOFFS Lower extremity angiogram (Bilateral) Location: [facility] PUT IN BEAT ADJUSTER 3 / [facility] (Cath) Providers: Sarah Tolliver MD [...] products. Plan discussed with attending. Additional Equipment RequestsNormalUniversUC Medical CenterBASIC METABOLIC PANELon 02-58-4727Behld gap [Moles/Vol]10 mmol/LNormal7-20UnElyria Memorial HospitalComment on above:Performed By: #### LAB15 ####[facility] (AKER)[address] [place], [place] [address]Mayqteb [Mass/Vol]9.3 mg/dLNormal8.6-10.3UnElyria Memorial HospitalComment on above:Performed By: #### LAB15 ####[facility] (BEAKER)[address] [place] [address] Chloride [Moles/Vol]106 mmol/NOdvrpe50-713BbtostunzxElyria Memorial Hospital Comment on above:Performed By: #### LAB15 ####[facility] (BEAKER)[address], [place] [address]VV6 [Moles/Vol]28 mmol/XZqfzul69-08RwjtphbzvoElyria Memorial HospitalComment on above:Performed By: #### LAB15 ####[facility] (AKER)[address], [place] [address]Kqgjowtakc [Mass/Vol]2.18 mg/dL High0.70-1.30UnElyria Memorial HospitalComment on above:Performed By: #### LAB15 ####[facility] (AKER)[address] [place] [address] GLOMERULAR FILTRATION RATE ML/MIN/1.73 SQ M.OMRHEIPJD81.6 mL/min/1.73m*2Low>60.0 Access Hospital DaytonComment on above:Result Comment: [facility]???s estimated glomerular filtration rate (eG FR) will [...] group of individuals. Performed By: #### LAB15 ####[facility] ([facility])[address] [place], [place] [address]Eruegpp [Mass/Vol]102 mg/aHGnrk16-843BpljteslfkElyria Memorial HospitalComment on above:Performed By: #### LAB15 ####[facility] ([facility])[address] [place], [place] [address]Wnwjdwzno [Moles/Vol]4.4 mmol/LNormal 3.5-5.1UnElyria Memorial HospitalComment on above:Performed By: #### LAB15 ####[facility] ([facility])[address] [place], [place] [address]Ocywow [Moles/Vol]140 mmol/ORawxiq590-521PjwcddmuxfElyria Memorial HospitalComment on above:Performed By: #### LAB15 ####[facility] ([facility])[address] [place], [place] [address]Sxts nitrogen [Mass/Vol]34 mg/dLHigh7-25UnElyria Memorial HospitalComment on above:Performed By: #### LAB15 ####[facility] ([facility])[address] [place], [place] [address]NPBT NITROGEN/CREATININE (MASS RATIO) IN SER/PLAS15.6NormalUniMiddletown HospitalComment on above: Performed By: #### LAB15 ####[facility] ([facility])[address] [place], [place] [address]WIDpa 20-18-1573Rpowndztyqd distribution width (RBC) [Ratio]14.6 % Mizabx03.5-15.0UnElyria Memorial HospitalComment on above:Performed By: #### TOX659 ####[facility] (BEAKER)[address] [place] [address] ERYTHROCYTE MEAN CORPUSCULAR HEMOGLOBIN CONCENTRATION (G/DL) BY VWZGXPINK91.1 g/iDDwawhy97.0-35.0UnElyria Memorial HospitalComment on above:Performed By: #### YDP745 ####[facility] (BEAKER)[address] [place], [place] [address]Pwpzdzwjqx (Bld) [Volume fraction]34.1 %Low39.0-50.0UnElyria Memorial HospitalComment on above:Performed By: #### GCM904 ####[facility] (BEAKER)[address] [place], [place] [address]Fwdkefduky (Bld) [Mass/Vol]11.3 g/dL Low13.0-17.0UnElyria Memorial HospitalComment on above:Performed By: #### GDH901 ####[facility] (BEAKER)[address] [place], [place] [address]RDA (RBC) [Entitic mass]30.6 beCxymqk47.0-33.0UnElyria Memorial Hospital Comment on above:Performed By: #### SZO479 ####[facility] (BEAKER)[address] [place], [place] [address]EII (RBC) [Entitic vol]92.4 uSOlpzll90.0-98.0 Access Hospital DaytonComment on above:Performed By: #### KLW547 ####[facility] (BEAKER)[address] [place], [place] [address]XDETZJVVK (10*3/UL) IN BLOOD AUTOMATED GAFGU019 10*3/jKQwmwml181-352GhqdlfpagoElyria Memorial HospitalComment on above:Performed By: #### DOS151 ####[facility] (BEAKER)[address] [place], [place] [address]YHH (Bld) [#/Vol]3.69 10*6/uLLow 4.20-5.70UnElyria Memorial HospitalComment on above:Performed By: #### EQH572 ####[facility] ([place])[address] [place] [address]ODP (Bld) [#/Vol]6.07 10*3/uLNormal4.00-10.60UnElyria Memorial HospitalComment on above:Performed By: #### RTN904 ####[facility] ([place])[address] [place] [address]BRqz 62-46-1057DA Attestation signed by Sarah Tolliver MD at [...] his baseline creatinine. Sarah Tolliver MD, MPH, [facility], [facility], [facility] Interventional Cardiology Pager Email: [email or web address] History Of Present Illness Kel Castillo is a 69 y.o. male presenting initally in clinic with leg pain. He has an extensive PMH of CAD s/p 3V CABG in 2009, CKD 4, PAD, HTN, HLD, COPD. His last cath was in 2019 which showed severe buckland CAD, patent SPRAGUE-LAD and SVG-OM but occluded radial-PDA. Aortogram at that time showed new severely calcific right [facility] lesion. His last TTE in 02/19/25 notes [...] aortogram w/ bilateral angiography Evgeny Arceo MD Drive In Teller, PGY-4 [facility] 04/08/25 9:15 AM [1] Medications [...] by mouth in the morning. 04/08/2025 Morning qdivixbmkvn-cfqlchngj-ynakjtud (Huy (more content not included)...Normal Access Hospital DaytonNURSNOTEon 99-21-4005DSJKCEVXVI educated pt on d/c instructions. This included: [...] wheeled off of unit with all of belongings.NormalAccess Hospital DaytonOrders Onlyon 11-64-5409Ykpoyx [id number] Kel Castillo 1955 M Date Provider Department Center 04/08/2025 [facility] Family History Problem Relation Age of Onset Diabetes Mother Family Status - Relation Status Age at MotherNormalUniversUC Medical CenterCNPNon 23-59-2408FRYZDcvwksqme (AGCARDPOB) CASTILLOSAMIR FISCHER ([id number]) 1955 M Date Time Provider Department 04/05/25 BILL GANT AGCARDPOB During your visit today, we recorded the following information about you: Mariana Wheeler LPN 04/05/2025 4:03 PM Signed Chest x-ray results received from [facility]. Scanned in for review. 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 Problem List As Of Date 04/05/2025 Noted Resolved Dyspnea and respiratory abnormalities [R06.00, *02/09/2022 Recurrent major depression in partial remission*04/12/2022 MCI (mild cognitive impairment) [G31.84] 04/12/2022 Encounter Status:Closed by MARIANA WHEELER on 04/05/25[facility]XR CHEST 2 VWSon 48-17-8681HP CHEST 2 VWSXR CHEST 2 VWS HISTORY: Other emphysema (CMS-HCC) COMPARISON: 02/26/2024 TECHNIQUE: PA and lateral views of the chest. FINDINGS: Unchanged cardiopericardial silhouette. Streaky opacities right lower lung potentially atelectasis or scarring. Volume loss right lung. No dense consolidation. No pneumothorax. No pleural effusion. IMPRESSION: Chronic lung disease without definite acute pulmonary process. Finalized by Roc Valverde MD on 04/05/2025 2:41 [facility] CERVICAL SPINE WO CONTon 06-80-8237CX CERVICAL SPINE WO CONTMR CERVICAL SPINE WO [...] by Kana Swain MD on 04/03/2025 12:02 [facility] NT-PROBNP SERPL-MCNCon 92-17-2146Yhkmtphfgtn peptide B (Bld) [Mass/Vol]4813 pg/mLHighNINF - 125 pg/mLNOMS HealthcareSpecimen Type: BLOOD SPECIMEN Ordering Facility: [facility] Address: [address], [place] [id number] Original Ordering Provider: BILL Morrison 43-98-4608CBFNCpbwkm Visit (AGCARDPOB) SAMIR CASTILLO ([id number]) 1955 M Date Time Provider Department 04/01/25 [...] a new patient visit. He lives in [place] and gets most of his care in [place] at [facility] but just wants a second [...] supplemental oxygen. He has not seen a police service technician recently and has not had any pulmonary [...] family for transportation. 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 He quit smoking 40 [...] 1/2 TABLETS BY MOUTH EVERY DAY omega 2-dyi-sjs-fish oil (FISH OIL) 100-160-1,000 mg cap Take [...] Date: Wt: 10/12/2024 169 (more content not included)...NormalRumford [facility] ECG B/O W INTERP (MED OFFICE)on 48-53-2672Wamofz sinus rhythm nonspecific ST-T changes septal Q wavesWilson HealthNT PRO BNPon 04-01-2025 Natriuretic peptide.B prohormone N-Terminal [Mass/Vol]4813 pg/mLHighNINF - 125 pg/mLCleveland ClinicNT-proBNP SerPl-mCncon 45-53-5599Gimmsronxup peptide.B prohormone N-Terminal [Mass/Vol]4813 pg/mLHigh<125[facility] Comment on above:Order Comment: Specimen Type: BLOOD SPECIMEN Ordering Facility: [facility] Address: [address] [place] [address] [place], [place] [address]Performed By: #### [id number] #### [facility] CLIA [id number] [address] Panel Informationon 04-01-2025 Interpretation and review of laboratory resultsAbNovant Health Clemmons Medical Center36on 40-44-317287Dpkyl with daughter and informed her I would put orders in and [facility] would be contacting her to set this up. I advised her her father would need lab orders about 1 week prior to scheduled procedure. She verbalized understanding. Orders entered and faxed to [facility]36Spoke with his daughter Nini. She says he's having extreme leg pain . You aren't here in [place] again for another 4 weeks. Daughter would like to proceed with LE angiogram if that's ok with you?[place] [address]I received a call from radiology at [facility]. This patient is here now for CTA abdomen/pelvis. Due to elevated s. creatinine (2.07, GFR 32), the test was unable to be performed. Would you like him to try again? How long should he wait to get it rescheduled? Thanks.[facility] HospitalOrders Onlyon 70-99-4404Rpjhks [id number] Kel Castillo 1955 M Date Provider Department Center 03/11/2025 IAN HORNE [facility] Family History Problem Relation Age of Onset Diabetes Mother Family Status - Relation Status Age at MotherNormalUniversCleveland Clinic CREATININEon 03-11-2025 Creatinine [Mass/Vol]2.07 mg/dLHigh0.70 - 1.30 mg/dLNOFL HealthcareGFR/1.73 sq M.predicted CKD-EPI (S/P/Bld) [Vol rate/Area]39Low>=60 mL/min/1.73m 2NOMS HealthcareInterpretation and review of laboratory resultsAbAscension Borgess Hospital EGFR-NON AF XOKBSUIA32Smp>=60 mL/min/1.73m 2NOMS HealthcareCLINISYNCNOMS Relyjiixcl57cg 90-85-536250Uyx telephone note on 02/24/[address] Tolliver. [place] [address]on 03-46-824637Tztbxnwbm HUBER's performed on 02/18/2025: MD Ian Juarez MA If the patient is having leg pain, please order an abdominal CTA with run offs (bilateral lower extremity angiography) Thanks. Spoke with patient's daughter and she states he's having lots of leg pain. Told her Dr. Tolliver would like further testing and she agreed. Order faxed to [facility]. Daughter verbalized understanding.[facility]36 Spoke to daughter advised her of Dr. Levi ECHO findings. Daughter verbalized understanding. Daughter is requesting results of HUBER'S advised daughter as soon as Reviews them we will call her with the results. Daughter states she is very concerned with what she read on Dartfishhart about HUBER test resultsNormalUniJoint Township District Memorial HospitalEGMENTAL BLOOD PRESSUREon 50-50-8819EdpRac[place], [place] [address] Cardiology Report Signed Patient: KEL CASTILLO Jr. MR#: [id number] : 1955 Acct:[id number] Age/Sex: 69 / M ADM Date: 02/18/25 Loc: CARD Attending Dr: Sarah Tolliver M.D. Ordering Physician: Sarah Tolliver M.D. Date of Service: 02/18/25 Procedure(s): CA segmental UE or LE LEENA Accession Number(s): [id number] cc: Noa Watson RESIST COATER DEVELOPER; Sarah Tolliver M.D. [facility] Test Date: 2025-02-18 Pat Name: KEL CASTILLO Department: Room: - Gender: Male Call Person: : 1955 Requested By: SARAH TOLLIVER Order Number: [id number] Reading MD: SARAH TOLLIVER Interpretive Statements Bilateral, moderately reduced ankle-brachial indices. 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 Recommend further imaging with CT or invasive angiography. Electronically Signed On 02-23-2025 12:52:03 EDT by SARAH TOLLIVER Dictated By: Sarah Tolliver M.D. Signed By: 02/23/25 1252 02/23/25 1252 DD/ 0841 TD/TT: Environmental Law Professor:Daniel Ramirez MD - 02/23/2025 [place] [address] Cardiology Report Signed Patient: KEL CASTILLO Jr. MR#: [id number] : 1955 Acct:[id number] Age/Sex: 69 / M ADM Date: 02/18/25 Loc: CARD Attending Dr: Sarah Tolliver M.D. Ordering Physician: Sarah Tolliver M.D. Date of Service: 02/18/25 Procedure(s): CA segmental UE or LE LEENA Accession Number(s): [id number] cc: Noa Watson RESIST COATER DEVELOPER; Sarah Tolliver M.D. [facility] Test Date: 2025-02-18 Pat Name: KEL CASTILLO Department: Room: - Gender: Male Call Person: : 1955 Requested By: SARAH TOLLIVER Order Number: [id number] Reading MD: SARHA TOLLIVER Interpretive Statements Bilateral, moderately reduced ankle-brachial indices. 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 Recommend further imaging with CT or invasive angiography. Electronically Signed On 02-23-2025 12:52:03 EDT by SARAH TOLLIVER Dictated By: Sarah Tolliver M.D. Signed By: 02/23/25 1252 02/23/25 1252 DD/ 0841 TD/TT: Environmental Law Professor: EDWIN [facility] Hospital - CincinnatiSEENTAL BLOOD PRESSUREOrdered By: Radiologist Radiology on 20-48-2876LRJE [address] Work Phone: [phone] 13-27-950091Sswmtvs's daughter called asking about result of echo. It was just scanned into you about 10 minutes ago. She saw the result from [facility] portal Saturday night and was concerned when she saw the word severe in the result. Daughter told me she called the [facility] physician acid conditioning worker Saturday night. I told her it was fine to wait until you reviewed result and I would call her. Thanks.[facility] HospitalTelephoneon [id number] Kel Castillo 1955 M Date Provider Department Center 02/22/2025 RubenIAN OLIVA [facility] Family History Problem Relation Age of Onset Diabetes Mother Family Status - Relation Status Age at MotherNormalUniMiddletown HospitalCA ECHO DOPPLER COMPLETEon 57-82-6262CfiRacine, [place] [address] Cardiology Report Signed Patient: KEL CASTILLO Jr. MR#: [id number] : 1955 Acct:[id number] Age/Sex: 69 / M ADM Date: 02/18/25 Loc: CARD Attending Dr: Sarah Tolliver M.D. Ordering Physician: Sarah Tolliver M.D. Date of Service: 02/18/25 Procedure(s): CA echo doppler complete Accession Number(s): [id number] cc: Noa Watson NP; Sarah Tolliver M.D. Patient Name: KEL CASTILLO MR#: [id number] : 1955 Exam Date: 02/18/2025 Ordering Doctor: [...] Area (VTI): 2.12 cm2, 2.12 cm2 Deceleration Tucker: Pressure Half-Time: Peak Velocity(Antegrade Flow): 1.47 m/s Peak Gradient(Antegrade Flow): 8.67 mm[Hg] Mean Velocity(Antegrade Flow): 0.98 m/s Mean Gradient(Antegrade Flow): 4.49 mm[Hg] Velocity Time Integral: 37.64 cm Tricuspid Valve Peak Velocity (Regurgitant Flow): 2.39 m/s, 3.11 m/s, 3.28 m/s Peak Velocity: Pulmonic Valve Mean Gradient: Mean Velocity: (more content not included)...TBHRadiology, Radiologist, MD - 02/19/2025 [place] [address] Cardiology Report Signed Patient: KEL CASTILLO Jr. MR#: [id number] : 1955 Acct:[id number] Age/Sex: 69 / M ADM Date: 02/18/25 Loc: CARD Attending Dr: Sarah Tolliver M.D. Ordering Physician: Sarah Tolliver M.D. Date of Service: 02/18/25 Procedure(s): CA echo doppler complete Accession Number(s): [id number] cc: Noa Watson RESIST COATER DEVELOPER; Sarah Tolliver M.D. Patient Name: KEL CASTILLO MR#: [id number] : 1955 Exam Date: 02/18/2025 Ordering Doctor: [...] Area (VTI): 2.12 cm2, 2.12 cm2 Deceleration Tucker: Pressure Half-Time: Peak Velocity(Antegrade Flow): 1.47 m/s [...] M.D. Signed By: 02/19/251822 DD/ 21 TD/TT: Environmental Law Professor: [facility] Rehabilitation CenterRadiology Study observation (narrative)[facility] ECHO DOPPLER COMPLETEOrdered By: Radiologist Radiology on 16-78-9709TEVD [address]59 Work Phone: SEGMENTAL BLOOD PRESSUREon 65-55-6150Sswspdlxi Study observation (narrative)[facility] Rehabilitation CenterCBC (NO DIFF)on 02-76-6599Framrzpakak distribution width (RBC) [Ratio]14.9 %Ozgewn52.5-15[facility] Comment on above:Performed By: #### UA #### [facility] ([id number]) [address] [place], [place] [address]Iwyqvruhto (Bld) [Volume fraction]34.1 %Pmu99-32JfxQgfotjCincinnati Shriners HospitalComment on above:Performed By: #### UA #### [facility] ([id number]) [address], [address] [place], [place] [address]Nexniukzvt (Bld) [Mass/Vol]11.5 g/mWPxj22-88DxmNujxkbNorth Texas State Hospital – Wichita Falls CampusComment on above:Performed By: #### UA #### [facility] ([id number]) [address], [address] [place], [place] [address]XFX (RBC) [Entitic mass]30.6 hmIlmhyc50-15YnsYkohpyCincinnati Shriners HospitalComment on above:Performed By: #### UA #### [facility] ([id number]) [address], [address] [place] [address]VQVT (RBC) [Mass/Vol]33.6 g/aDXjsjvc40-23SkhKiqeinNorth Texas State Hospital – Wichita Falls CampusComment on above:Performed By: #### UA #### [facility] ([id number]) [address], [address] [place], [place] [address]IEB (RBC) [Entitic vol]91 dSWsugni51-664RnsSrnqgsCincinnati Shriners HospitalComment on above:Performed By: #### UA #### [facility] ([id number]) [address], [address] [place], [place] [address]Mrndquwk mean volume (Bld) [Entitic vol]7.5 fLNormal7-12 [facility]ers HospitalComment on above:Performed By: #### UA #### [facility] ([id number]) [address], [address] [place], [place] [address]Cxjneiidl (Bld) [#/Vol]122 10*3/zQIwr890-831SpjWkflgaNorth Texas State Hospital – Wichita Falls CampusComment on above:Performed By: #### UA #### [facility] ([id number]) [address], [address] [place], [place] [address]SUL COUNT3.75 X10E12/LLow4.1-5.7[facility] Comment on above:Performed By: #### UA #### [facility] ([id number]) [address], [address] [place], [place] [address]AWM (Bld) [#/Vol]5.5 10*3/uLNormal4-11[facility] Comment on above:Performed By: #### UA #### [facility] ([id number]) [address] [facility] [address], [address] [place], [place] [address]CSALYBWOTgo 12-77-1817Gqotvvaua [Mass/Vol]2.0 mg/dLNormal1.8-2.6 [facility]ers HospitalComment on above:Performed By: #### UA #### [facility] ([id number]) [address] [facility] [facility], [address] [place], [place] [address]SBRMBPDWHLLF / CREATININE URINE RATIOon 21-73-4884Ajudmbb DL <= 20 mg/L (U) [Mass/Vol]0.9 mg/dLNormal0.0-1.9[facility]riners HospitalComment on above:Performed By: #### CBC, 2276-4, 1-8, 2131-9, 2283-8, 57670-0, FEPR, 07839-6, LIVR, 46025-6, RENAL, 3084-1 #### [facility] ([id number]) [address] [facility], [address] [place], [place] [address]REWB/CREAT RATIO6.8 mg/gNormal0.0-30.0[facility] Comment on above:Performed By: #### CBC, 2276-4, 1-8, 2131-9, 4-8, 79445- 6, FEPR, 04293-4, LIVR, 01453-5, RENAL, 3084-1 #### [facility] ([id number]) [address] [facility], [address] [place], [place] [address]JNRRK CREATININE,LRN528.37 mg/dLNormalProNorth Texas State Hospital – Wichita [facility] Campus Comment on above:Performed By: #### CBC, 2276-4, 1-8, 2131-9, 2283-8, 18433- 6, FEPR, 77180-6, LIVR, 08273-0, RENAL, 3084-1 #### [facility] ([id number]) [address], [address] [place], [place] [address]DOBYY PANELon 95-82-6469Ntiujgl [Mass/Vol]4.1 g/dLNormal3.2-5.3 [facility]ers HospitalComment on above:Performed By: #### UA #### [facility] ([id number]) [address], [address] [place] [address]Gobgq gap [Moles/Vol]9 mmol/LNormal5-15[facility]riners HospitalComment on above:Performed By: #### UA #### [facility] ([id number]) [address], [address] [place], [place] [address]Ualxeep [Mass/Vol]9.1 mg/dLNormal8.5-10.5PGerman HospitalComment on above:Performed By: #### UA #### [facility] ([id number]) [address], [address] [place], [place] [address]Oytpfkms [Moles/Vol]110 mmol/BXawt86-009EvdYzfrzmCincinnati Shriners HospitalComment on above:Performed By: #### UA #### [facility] ([id number]) [address], [address] [place] [address]JJ5 [Moles/Vol]26 mmol/QOnaqhs70-32QczMgcmbdGerman Hospital Comment on above:Performed By: #### UA #### [facility] ([id number]) [address], [address] [place] [address]Igcllrpfwi [Mass/Vol]1.87 mg/dLHigh0.60-1.30C[facility] Shriners HospitalComment on above:Result Comment: METHOD TRACEABLE TO IDMS STANDARD Performed By: #### UA #### [facility] ([id number]) [address], [address] [place] [address]MGI/1.73 sq M.predicted among non-blacks MDRD (S/P/Bld) [Vol rate/Area]38 mL/min/{1.73_m2}Low>=60ProNorth Texas State Hospital – Wichita Falls CampusComment on above: Result Comment: Reported eGFR is based on the CKD-EPI 2020 equation that does not use a race coefficient.Performed By: #### UA #### [facility] ([id number]) [address], [address] [place] [address]Jgyhozs [Mass/Vol]93 mg/zEDjtozs38-98JjaJuffweCincinnati Shriners Hospital Comment on above:Performed By: #### UA #### [facility] ([id number]) [address], [address] [place], [place] [address]Gyupvsgio [Mass/Vol]4.0 mg/dLNormal2.4-4.9ProNorth Texas State Hospital – Wichita Falls CampusComment on above:Performed By: #### UA #### [facility] ([id number]) [address], [address] [place], [place] [address]Nozhwtbzx [Moles/Vol]4.3 mmol/LNormal3.5-5.0ProNorth [facility] State Hospital – W[facility] Falls CampusComment on above:Performed By: #### UA #### [facility] ([id number]) [address], [address] [place], [place] [address]Rpjbgt [Moles/Vol]145 mmol/ZObkygl022-023KewMzcqhh [facility]remont HospitalComment on above:Performed By: #### UA #### [facility] ([id number]) [address], [address] [place], [place] [address]Mepu nitrogen [Mass/Vol]30 mg/dLHigh5-27ProNorth [facility] State Hospital – W[facility] Falls CampusComment on above:Performed By: #### UA #### [facility] ([id number]) [address], [address] [place], [place] [address]URZDGMPNLKnr 76-73-9886Lehxypwyw Ql (U)NegativeNormalNegative [facility] CenterComment on above:Performed By: #### UA #### [facility] ([id number]) [address], [address] [place], [place] [address]UCSBP/HGBNegativeNormalNegativeCincinnati Shriners HospitalComment on above:Performed By: #### UA #### [facility] ([id number]) [address], [address] [place], [place] [address]Ckdkm (U)YellowNormalYellow, ColorlessCincinnati Shriners Hospital Comment on above:Performed By: #### UA #### [facility] ([id number]) [address], [address] [place], [place] [address]Fczsemk Ql (U)NegativeNormalNegSelect Medical Specialty Hospital - [place] Comment on above:Performed By: #### UA #### [facility] ([id number]) [address], [address] [place], [place] [address]Pdsqoqq Ql (U)NegativeNormalNegativeCincinnati Shriners Hospital Comment on above:Performed By: #### UA #### [facility] ([id number]) [address], [address] [place], [place] [address]Qvdlsptro esterase Test strip Ql (U)NegativeNormalNegative ProMhale county hospitala [facility]alinga Regional Medical CenterComment on above:Performed By: #### UA #### [facility] ([id number]) [address], [address] [place], [place] [address]Wfmpqlq Ql (U)NegativeNormalNegSelect Medical Specialty Hospital [facility] [place] Comment on above:Performed By: #### UA #### [facility] ([id number]) [address], [address] [place], [place] [address]LX,URINE6.7Ywlrxm3.0-8.5Pro[facility] Medical CenterComment on above:Performed By: #### UA #### [facility] ([id number]) [address], [address] [place], [place] [address]Qgvynhy Ql (U)NegativeNormalNegativeCincinnati Shriners Hospital Comment on above:Performed By: #### UA #### [facility] ([id number]) [address], [address] [place], [place] [address]Zhggjemf gravity (U) [Rel density]1.906Yoqiuh7.003-1.035 [facility] Medical CenterComment on above:Performed By: #### UA #### [facility] ([id number]) [address], [address] [place], [place] [address]TIRASAWJIPmrywYydpftXdosgUyiDzhtus [facility]ont HospitalComment on above:Performed By: #### UA #### [facility] ([id number]) [address], [address] [place], [place] [address]NJKQRQJHEKZS<1.1 eu/dLNormal<1.1 eu/dLCincinnati Shriners Hospital Comment on above:Performed By: #### UA #### [facility] ([id number]) [address], [address] [place], [place] [address]JT SPINE CERVICAL 3 VWS OR LESSon 26-08-5011QR SPINE CERVICAL 3 VWS OR LESSXR SPINE [...] by Oh Wild MD on 01/12/2025 12:57 AMNormalProNorth Texas State Hospital – [facility]ita Falls CampusCOMPLETE BLOOD COUNTon 01-59-8988Zcdhkujbzxg distribution width (RBC) [Ratio]15.0 %Maehxz87.5-15.0Cincinnati Shriners HospitalComment on above:Performed By: #### CBC, 2276-4, 2731-8, 2132-9, 2284-8, 32459-8, FEPR, 05727-6, LIVR, 54957-6, RENAL, 3084-1 #### [facility] ([id number]) [address], [address] [place], [place] [address]Hdbcwbfikj (Bld) [Volume fraction]36.4 %Gqh18-02BttKalhmkNorth Texas State Hospital – Wichita Falls CampusComment on above:Performed By: #### CBC, 6-4, 2730-8, 9, 2283-8, 43417-9, FEPR, 15765-1, LIVR, 35799-7, RENAL, 3084-1 #### [facility] ([id number]) [address] [facility], [address] [place], [place] [address]Ybqrvmdfkf (Bld) [Mass/Vol]12.5 g/dLLow13.0-17.0C[facility] Shriners HospitalComment on above:Performed By: #### CBC, 2275-4, 2730-8, 9, 8, 60986-9, FEPR, 87033-8, LIVR, 48979-8, RENAL, 3084-1 #### [facility] ([id number]) [address], [address] [place], [place] [address]NLU (RBC) [Entitic mass]30.8 bgUffddz78-79AhlMoktwdNorth Texas State Hospital – Wichita Falls CampusComment on above:Performed By: #### CBC, 6-4, 2730-8, 9, 8, 23101-8, FEPR, 82655-6, LIVR, 67073-6, RENAL, 3084-1 #### [facility] ([id number]) [address], [address] [place], [place] [address]YHIX (RBC) [Mass/Vol]34.4 g/xFFdvxnu55-34GqaUqaapoNorth Texas State Hospital – Wichita Falls CampusComment on above:Performed By: #### CBC, 6-4, 2730-8, 9, 2283-8, 52734-6, FEPR, 93131-3, LIVR, 10736-6, RENAL, 3084-1 #### [facility] ([id number]) [address], [address] [place], [place] [address]LJT (RBC) [Entitic vol]89 xGBioyqf22-389NwgRgffse [facility]ont HospitalComment on above:Performed By: #### CBC, 6-4, 1-8, 2131-9, 2283-8, 14816-6, FEPR, 38110-9, LIVR, 93240-8, RENAL, 3084-1 #### [facility] ([id number]) [address] [facility], [address] [place], [place] [address]Qnoqwvpe mean volume (Bld) [Entitic vol]7.4 fLNormal7-12 [facility]riners HospitalComment on above:Performed By: #### CBC, 6-4, 2730- 8, 2131-9, 2283-8, 85439-1, FEPR, 98350-5, LIVR, 77489-2, RENAL, 3084-1 #### [facility] ([id number]) [address] [facility], [address] [place], [place] [address]Cbiasoazw (Bld) [#/Vol]145 10*3/qPHcw551-234LsiNalexjNorth Texas State Hospital – Wichita Falls CampusComment on above:Performed By: #### CBC, 6-4, 2730-8, 2131-9, 2283-8, 10302-6, FEPR, 34194-2, LIVR, 68897-7, RENAL, 3084-1 #### [facility] ([id number]) [address], [address] [place], [place] [address]KTT COUNT4.08 X10E12/LLow4.10-5.70[facility] Comment on above:Performed By: #### CBC, 6-4, 1-8, 2131-9, 228-8, 71575- 6, FEPR, 95972-0, LIVR, 19411-9, RENAL, 3084-1 #### [facility] ([id number]) [address] [place] [address], [address] [place], [place] [address]OPL (Bld) [#/Vol]5.3 10*3/uLNormal4.0-11.0C[facility] Shriners HospitalComment on above:Performed By: #### CBC, 6-4, 2730-8, 9, 2283-8, 43353-2, FEPR, 62066-3, LIVR, 88881-3, RENAL, 3084-1 #### [facility] ([id number]) [address] [place] [address], [address] [place], [place] [address]DKBDCSIQtq 05-30-2470Hdrgerpx [Mass/Vol]67 ng/zTBrvqrr48-808 [facility]ers HospitalComment on above:Performed By: #### CBC, 6-4, 2730- 8, 9, 2283-8, 65440-4, FEPR, 64836-7, LIVR, 23703-2, RENAL, 3084-1 #### [facility] ([id number]) [address] [place] [address], [address] [place], [place] [address]Ljxrug [Mass/Vol]on 92-98-3038HOQMD ACID24.5 ng/mLNormal>5.8 [facility]riners HospitalComment on above:Result Comment: NEW REFERENCE RANGE Performed By: #### CBC, 6-4, 2730-8, 9, 2283-8, 11582-0, FEPR, 66326-8, LIVR, 51176-2, RENAL, 3084-1 #### [facility] ([id number]) [address] [place] [address], [address] [place], [place] [address]KGVF PROFILEon 30-32-2221Pwig [Mass/Vol]75 ug/iBCaeutx95-932 [facility]riners HospitalComment on above:Performed By: #### CBC, 6-4, 2730- 8, 2132-04, 2283-8, 98545-0, FEPR, 46362-6, LIVR, 71430-0, RENAL, 3084-1 #### [facility] ([id number]) [address] [place] [address], [address] [place], [place] [address]XNSR GTKKBLE645 ug/lWBqwhds491-354RrfSqkljiCincinnati Shriners Hospital Comment on above:Performed By: #### CBC, 6-4, 2730-8, 2131-9, 2283-8, 64656- 6, FEPR, 16277-1, LIVR, 34842-9, RENAL, 3084-1 #### [facility] ([id number]) [address] [place] [address], [address] [place], [place] [address]TRIO SWTMABIROB14 % QUHUPXSYEHSza90-40FmdFgdeil [facility] Comment on above:Performed By: #### CBC, 6-4, 2730-8, 2131-9, 2283-8, 31561- 6, FEPR, 37315-9, LIVR, 29086-7, RENAL, 3084-1 #### [facility] ([id number]) [address] [place] [address], [address] [place], [place] [address]UQEAU PANELon 85-93-5097Ehvjqml [Mass/Vol]4.3 g/dLNormal3.2-5.3 [facility] Hospitaledica [facility] Medical CenterComment on above:Performed By: #### UA #### [facility] ([id number]) [address] [place] [address], [address] [place], [place] [address]QCG [Catalytic activity/Vol]48 U/WAwwwfq92-575KciFhsvqdNorth Texas State Hospital – W[facility] Falls CampusComment on above:Performed By: #### UA #### [facility] ([id number]) [address] [place] [address], [address] [place], [place] [address]UUW [Catalytic activity/Vol]28 U/LNormal0-40ProNorth [facility] State Hospital – W[facility] Falls CampusComment on above:Performed By: #### UA #### [facility] ([id number]) [address] [facility], [address] [place], [place] [address]JRH [Catalytic activity/Vol]33 U/LNormal0-41ProNorth [facility] Hospital – [facility] CampusComment on above:Performed By: #### UA #### [facility] ([id number]) [address] [place] [address], [address] [place], [place] [address]Ykdoxxtcq [Mass/Vol]0.6 mg/dLNormal0.3-1.2PGerman HospitalComment on above:Performed By: #### UA #### [facility] ([id number]) [address] [facility], [address] [place], [place] [address]Udodndaay.direct [Mass/Vol]0.2 mg/dLNormal0.0-0.4C[facility]riners HospitalComment on above:Performed By: #### UA #### [facility] ([id number]) [address] [place] [address], [address] [place], [place] [address]Amknfjn [Mass/Vol]6.7 g/dLNormal6.0-8.0ProNorth [facility] State Hospital – W[facility] Falls CampusComment on above:Performed By: #### UA #### [facility] ([id number]) [address] [place] [address], [address] [place], [place] [address]Txedz 1996 panelon 16-23-8526Brbjfvskjhw [Mass/Vol]119 mg/dLLow 150-200ProNorth [facility] Hospital [facility] CampusComment on above:Performed By: #### CBC, 2276- 4, 2731-8, 2132-9, 2284-8, 07727-6, FEPR, 26742-0, LIVR, 83116-1, RENAL, 3084-1 #### [facility] ([id number]) [address] [facility], [address] [place], [place] [address]Mxqryvnuqam in HDL [Mass/Vol]42 mg/dLNormal>39ProNorth [facility] Hospital [facility] CampusComment on above:Result Comment: HDL <40 mg/dL - High Risk HDL > or = 40mg/dL- Desirable HDL >60 mg/dL - Negative Risk Performed By: #### RUY, 2276-4, 2731-8, 2132-9, 2284-8, 02363-0, FEPR, 17673-8, LIVR, 03737-6, RENAL, 3084-1 #### [facility] ([id number]) [address] [facility], [address] [place], [place] [address]Ienmzhfbvuv in LDL [Mass/Vol]52 mg/dLNormal<130ProNorth [facility] Hospital [facility] Falls CampusComment on above:Result Comment: LDL <100 mg/dL - Desirable LDL >160 mg/dL - High Risk Performed By: #### RUY, 2276-4, 2731-8, 2132-9, 4-8, 56325-5, FEPR, 00471-8, LIVR, 35492-9, RENAL, 3084-1 #### [facility] ([id number]) [address] [facility], [address] [place], [place] [address]Nyzwwbxzqcw in VLDL [Mass/Vol]25 mg/dLNormal0-30ProNorth [facility] CampusComment on above:Performed By: #### RUY, 2276-4, 2731-8, 2132-9, 2284-8, 40495-0, FEPR, 73907-2, LIVR, 79128-8, RENAL, 3084-1 #### [facility] ([id number]) [address] [facility], [address] [place], [place] [address]UOWWHFLPCIO:HDL2.7Qmrphf6.0-5.0ProNorth [facility] Hospital – W[facility] Falls CampusComment on above:Performed By: ###Lance REDMOND, 2276-4, 2731-8, 2131-9, 2283-8, 80505-6, FEPR, 53732-3, LIVR, 90120-4, RENAL, 3084-1 #### [facility] ([id number]) [address], [address] [place], [place] [address]Gcmdmmefrzle [Mass/Vol]125 mg/cBXhlxem56-273UoeOgkuya [facility] HospitalComment on above:Performed By: #### CBC, 6-4, 2730-8, 9, 2283-8, 80121-0, FEPR, 38063-5, LIVR, 19528-4, RENAL, 3084-1 #### [facility] ([id number]) [address], [facility] [address] [place], [place] [address]AMOZYZEIOry 17-55-3685Fyyvdpkur [Mass/Vol]2.0 mg/dLNormal1.8-2.6 [facility] Medical CenterComment on above:Performed By: #### UA #### [facility] ([id number]) [address], [address] [place], [place] [address]KPGNWPW CREAT RATIOon 40-55-8571ZLYMLV URINE GSDYLEP314 mg/LHigh <120ProNorth [facility] CampusComment on above:Performed By: #### UA #### [facility] ([id number]) [address], [address] [place], [place] [address]V/PRO/BINDING CUTTER SYNTHETIC CLOTH RATIO CALC0.09Normal<0.2PGerman Hospital Comment on above:Result Comment: Nephrotic Syndrome is associated with ratios >3.5Performed By: #### UA #### [facility] ([id number]) [address], [address] [place], [place] [address]CZGNF CREATININE,WSQ663.09 mg/dLNoalCincinnati Shriners Hospital Comment on above:Performed By: #### UA #### [facility] ([id number]) [address], [address] [place] [address]Xumwyprtqu.intact [Mass/Vol]on 40-96-1386TBL CTQPGV94 pg/mL Kfmieg23-46YuyXdkrsnCincinnati Shriners HospitalComment on above:Performed By: #### CBC, 2276-4, 2731-8, 2132-9, 2284-8, 66862-2, FEPR, 33749-4, LIVR, 85161-7, RENAL, 3084-1 #### [facility] ([id number]) [address], [address] [place] [address]HWQQF PANELon 65-53-1575Tkztu gap [Moles/Vol]13 mmol/LNormal5-15 [facility]riners HospitalComment on above:Performed By: #### UA #### [facility] ([id number]) [address] [address] [place] [address]Mahpcua [Mass/Vol]9.2 mg/dLNormal8.5-10.5PGerman HospitalComment on above:Performed By: #### UA #### [facility] ([id number]) [address], [address] [place] [address]Rlzrkmnf [Moles/Vol]107 mmol/CBicntn69-841ItsIjpoynNorth Texas State Hospital – Wichita Falls CampusComment on above:Performed By: #### UA #### [facility] ([id number]) [address] [address] [place] [address]SC7 [Moles/Vol]21 mmol/OCsn76-32TxfCkimqtGerman Hospital Comment on above:Performed By: #### UA #### [facility] ([id number]) [address] [address] [place] [address]Jvbjehuwhx [Mass/Vol]2.23 mg/dLHigh0.60-1.30[facility] Shriners HospitalComment on above:Result Comment: METHOD TRACEABLE TO IDMS STANDARD Performed By: #### UA #### [facility] ([id number]) [address], [address] [place], [place] [address]FVV/1.73 sq M.predicted among non-blacks MDRD (S/P/Bld) [Vol rate/Area]31 mL/min/{1.73_m2}Low>59ProNorth [facility] State Hospital – W[facility] Falls CampusComment on above: Result Comment: Reported eGFR is based on the CKD-EPI 2020 equation that does not use a race coefficient.Performed By: #### UA #### [facility] ([id number]) [address], [address] [place], [place] [address]Dejjdtz [Mass/Vol]96 mg/iHFdzjxo68-65ZneOtdyziCincinnati Shriners Hospital Comment on above:Performed By: #### UA #### [facility] ([id number]) [address] [address] [place], [place] [address]Osmihtfcp [Mass/Vol]4.7 mg/dLNormal2.4-4.9ProNorth [facility] Hospital – [facility] CampusComment on above:Performed By: #### UA #### [facility] ([id number]) [address] [address] [place], [place] [address]Vgqnuvyxz [Moles/Vol]4.4 mmol/LNormal3.5-5.0ProNorth [facility] Hospital – [facility] Falls CampusComment on above:Performed By: #### UA #### [facility] ([id number]) [address] [address] [place], [place] [address]Bovzvq [Moles/Vol]141 mmol/OHzrhvs566-093SemQmgdpq [facility] HospitalComment on above:Performed By: #### UA #### [facility] ([id number]) [address] [address] [place], [place] [address]Hkyy nitrogen [Mass/Vol]28 mg/dLHigh5-27ProNorth [facility] CampusComment on above:Performed By: #### UA #### [facility] ([id number]) [address] [address] [place], [place] [address]GAZL ACIDon 73-76-4347Pbuyq [Mass/Vol]6.2 mg/dLNormal2.6-7.2 [facility]riners HospitalComment on above:Performed By: #### UA #### [facility] ([id number]) [address], [address] [place], [place] [address]CKMACOYSTPsp 76-31-5706Wjvfgymqk Ql (U)NegativeNormalNEG [facility]riners HospitalComment on above:Performed By: #### UA #### [facility] ([id number]) [address], [address] [place], [place] [address]IVJQV/HGBNegativeNormalNEGCincinnati Shriners HospitalComment on above:Performed By: #### UA #### [facility] ([id number]) [address], [address] [place], [place] [address]Uhbqs (U)YELLOWNormalYELLOWCincinnati Shriners HospitalComment on above:Performed By: #### UA #### [facility] ([id number]) [address], [address] [place], [place] [address]Mtvzmoi Ql (U)NegativeNormalNEGCincinnati Shriners HospitalComment on above:Performed By: #### UA #### [facility] ([id number]) [address], [address] [place], [place] [address]Fiytvbj casts LM Ql (Urine sed)4 /lpfHigh0-2PGerman HospitalComment on above:Performed By: #### UA #### [facility] ([id number]) [address], [address] [place], [place] [address]Jdgycvv Ql (U)NegativeNormalNEGCincinnati Shriners HospitalComment on above:Performed By: #### UA #### [facility] ([id number]) [address], [address] [place], [place] [address]Pdffhhwrq esterase Test strip Ql (U)NegativeNormalNEGProNorth [facility] State Hospital [facility] CampusComment on above:Performed By: #### UA #### [facility] ([id number]) [address] [place] [address], [address] [place], [place] [address]XLNGQHXQYRPLHOkossztcHRUXGlcMgupjz [facility] HospitalComment on above:Performed By: #### UA #### [facility] ([id number]) [address] [place] [address], [address] [place], [place] [address]Tmiebaa Ql (U)NegativeNormalNEGCincinnati Shriners HospitalComment on above:Performed By: #### UA #### [facility] ([id number]) [address] [place] [address], [address] [place], [place] [address]pS (U)6.0 [pH]Normal5.0-8.5PGerman HospitalComment on above:Performed By: #### UA #### [facility] ([id number]) [address] [place] [address], [address] [place], [place] [address]Fafnhtx Ql (U)TraceAbnormalNEGCincinnati Shriners HospitalComment on above:Performed By: #### UA #### [facility] ([id number]) [address] [place] [address], [address] [place], [place] [address]R.B.CELLS0 /hpfNormal0-5PGerman HospitalComment on above:Performed By: #### UA #### [facility] ([id number]) [address], [address] [place], [place] [address]Nwvgmqeb gravity (U) [Rel density]1.207Iyrufm0.003-1.035 [facility] Medical CenterComment on above:Performed By: #### UA #### [facility] ([id number]) [address] [facility], [address] [place], [place] [address]OLSFCSJPNLKQNUHlcfluBVSTLOxpXazotc Fremont HospitalComment on above:Performed By: #### UA #### [facility] ([id number]) [address], [address] [place], [place] [address]Yshkknhbvfbu (U) [Mass/Vol]mg/dLNormal<1.1PGerman HospitalComment on above:Performed By: #### UA #### [facility] ([id number]) [address], [address] [place], [place] [address]R.B.CELLS2 /hpfNormal0-5PGerman HospitalComment on above:Performed By: #### UA #### [facility] ([id number]) [address], [address] [place], [place] [address]LLLMQSE B12on 21-02-1891Tjzfznwxm (Vitamin B12) [Mass/Vol]462 pg/tFNnncwe847-101UtzApzzqgGerman HospitalComment on above:Performed By: #### CBC, 2276-4, 1-8, 9, 2283-8, 93566-1, FEPR, 88359-7, LIVR, 21929-8, RENAL, 3084-1 #### [facility] ([id number]) [address], [address] [place], [place] [address]Wvwolik D+Metabolites [Mass/Vol]on 05-86-5991FSWCWYT D 25 HYD TOT72.1 ng/dOTdopat94-887VudZlbhix [facility]remont HospitalComment on above:Result Comment: Vitamin D status 25 [place] Vitamin D Deficiency <20 ng/mL Insufficiency 20-29 ng/mL Sufficiency 30-100 ng/mL Toxicity >100 ng/mL NOTE: A pediatric reference range has not been established by the vocal performer of this kit. The [place] [employer] recommends a Vitamin D level of = or >20ng/mL in infants and children.Performed By: #### CBC, 2276-4, 2731-8, 2131-9, 2283-8, 73065-4, FEPR, 39267-1, LIVR, 20048-9, RENAL, 3084-1 #### [facility] ([id number]) [address] [place], [place] [address]Hiyema Visiton 43-67-5198Okavoq-up [id number] CastilloKel 1955 M Date Provider Department Center 10/13/2024 271-SARAH TOLLIVER Family History Problem Relation Age of Onset Diabetes Mother Family Status - Relation Status Age at Mother Level of Service:[address] [place] OFFICE/OUTPATIENT ESTABLISHED MOD [facility]-29-7323NXSJFaaoay Visit (NEIND4) SAMIR CASTILLO ([id number]) 1955 M Date Time Provider Department 10/12/24 [...] Eun Trent DO 10/12/2024 2:47 PM Signed [facility] General Neurology Follow up/ Established patient visit Individuals who were included in, or assisted with the encounter were: Samir Castillo Eun Black DO Chief Complaint/Issues: Samir Castillo is a 69 year old male seen in the [facility] for General Neurology for: Memory loss [...] list. Holding a coffee (more content not included)...[facility] CNOVon 10-07-9586QJORGpooay Visit (NPTU10) SAMIR CASTILLO ([id number]) 1955 M Date Time Provider Department 09/08/24 8:00 AM MISTY POLO NPTU10 During your visit today, we recorded the following information about you: Misty Polo, PhD 09/10/2024 4:35 PM Signed [facility] [facility] Department of Neurology Section of Neuropsychology Neuropsychological Evaluation Report CONFIDENTIAL Patient: Samir Castillo Date of : 1955 Referred by: Eun Black MD (Neurology) Education: 10 Handedness: R Language(s): Cypriot Date of Evaluation: 09/08/2024 Mr. Castillo is [...] no Problems with mother's /delivery: no Early TRIPLE AIR VALVE TESTER infection, high fever, significant childhood illness: no SCHOOL HISTORY: Years of education completed: 10; left school early because he did not like it. 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 One day will feel worried and next day will feel okay. Has been this way for a long time. Mental health treatment: He endorsed lo (more content not included)...Normal [facility] ClevelandLipid 1996 panelon 56-15-6660Lsmlxrztatd [Mass/Vol]142 mg/zTHkz404 - 200 mg/dLNOMS HealthcareCholesterol in HDL [Mass/Vol]43 mg/dL39 - PINF mg/dLNOMS HealthcareComment on above: HDL <40 mg/dL - High Risk HDL > or = 40mg/dL- Desirable HDL >60 mg/dL - Negative Risk Cholesterol in HDL/Total Cholesterol [Mass ratio]3.3 {ratio}1.0 - 5.0[facility] HealthcareComment on above:PERFORMED AT [address],[place], [place] [address]Qdgdliyhebv in LDL [Mass/Vol]75 mg/dLNINF - 130 mg/dL [facility] HealthcareComment on above: LDL <100 mg/dL - Desirable LDL >160 mg/dL - High Risk Cholesterol in VLDL [Mass/Vol]24 mg/dL0 - 30 mg/dLJ[facility] HealthcareInterpretation and review of laboratory resultsAbnormalMissouri Rehabilitation CenterTriglyceride [Mass/Vol] 118 mg/dL27 - 150 mg/dLNOMayo Clinic Health System Franciscan HealthcareCholesterol [Mass/Vol]142 mg/cVSow895-052TdzZcnatuNorth Texas State Hospital – Wichita Falls CampusComment on above:Performed By: #### 06873-7 #### [facility] ([id number]) [address] [place] [address], [address] [place], [place] [address]Ijgdqynhmrf in HDL [Mass/Vol]43 mg/dLNormal>39Cincinnati Shriners HospitalComment on above:Result Comment: HDL <40 mg/dL - High Risk HDL > or = 40mg/dL- Desirable HDL >60 mg/dL - Negative Risk Performed By: #### 13933-8 #### [facility] ([id number]) [address] [place] [address], [address] [place], [place] [address]Arsopiwkqem in LDL [Mass/Vol]75 mg/dLNormal<130ProNorth Texas State Hospital – Wichita Falls CampusComment on above:Result Comment: LDL <100 mg/dL - Desirable LDL >160 mg/dL - High Risk Performed By: #### 25997-6 #### [facility] ([id number]) [address], [address] [place], [place] [address]Lbrkadilqbq in VLDL [Mass/Vol]24 mg/dLNormal0-30ProNorth Texas State Hospital – Wichita Falls CampusComment on above:Performed By: #### 84344-4 #### [facility] ([id number]) [address], [address] [place], [place] [address]DNRRFIZBLGY:HDL3.0Bbxczf2.0-5.0ProNorth Texas State Hospital – Wichita Falls CampusComment on above:Performed By: #### 74657-0 #### [facility] ([id number]) [address], [address] [place], [place] [address]Rxjzqkhprgxd [Mass/Vol]118 mg/aLMrhdmn67-372MzzSrdppm Fremont HospitalComment on above:Performed By: #### 89376-1 #### [facility] ([id number]) [address], [address] [place], [place] [address]WM BRAIN WO IVCONon 42-14-6857UA BRAIN WO IVCON* * *Final Report* * [...] NO CT EVIDENCE OF ACUTE INTRACRANIAL PROCESS. Environmental Law Professor: [facility] Transcribe Date/Time: May 12 2024 3:59P Dictated by : FIDEL DAVIDSON MD This examination was interpreted and the report reviewed and electronically signed by: FIDEL DAVIDSON MD on May 12 2024 4:07PM [facility] [id number]_IDCSIACNNLovell General HospitalCT Head WO contraston 05-12-2024 IMPRESSION: NO CT EVIDENCE OF ACUTE INTRACRANIAL PROCESS. Environmental Law Professor: [facility] Transcribe Date/Time: May 12 2024 3:59P Dictated by : FIDEL DAVIDSON MD This examination was interpreted and the report reviewed and electronically signed by: FIDEL DAVIDSON MD on May 12 2024 4:07PM [facility] RADIOLOGY* * *Final Report* * * DATE [...] Localizer images: No additional findings. [facility] RADIOLOGYProvider, [facility] [place] - 05/12/2024 * * *Final Report* * [...] NO CT EVIDENCE OF ACUTE INTRACRANIAL PROCESS. Environmental Law Professor: [facility] Transcribe Date/Time: May 12 2024 3:59P Dictated by : FIDEL DAVIDSON MD This examination was interpreted and the report reviewed and electronically signed by: FIDEL DAVIDSON MD on May 12 2024 4:07PM EST [facility] CenterRadiology Study observation (narrative)[facility] Head WO contrastOrdered By: [facility] Provider on 39-61-7028Jdahfcgon ClinicCNOVon 42-28-6631GXNOYntuxx Visit (NEIND4) SAMIR CASTILLO ([id number]) 1955 M Date Time Provider Department 05/04/24 9:30 AM EUN TRENT NEIND4 During your visit today, we recorded the following information about you: Pulse Blood pressure Weight Height 57/minute 138/63 80.5 kg 1.676 m Eun Trent DO 05/04/2024 10:17 PM Signed [facility] General Neurology Follow up/ Established patient visit Individuals who were included in, or assisted with the encounter were: Samir Castillo Eun Black DO Chief Complaint/Issues: Samir Castillo is a 69 year old male seen in the [facility] for General Neurology for: Memory loss [...] over medications. 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 MOCA December 2021 [...] mouth twice daily. isos (more content not included)...[facility] SH[facility] LEFT W/Oon 74-08-9058[place]fy[place], [place] [address] Magnetic Resonance Report Signed Patient: KEL CASTILLO Jr. MR#: [id number] : 1955 Acct:[id number] Age/Sex: 68 / M ADM Date: 09/05/23 Loc: MRI Attending Dr: Bimal Mcgowan M.D. Ordering Physician: Bimal Mcgowan M.D. Date of Service: 09/05/23 Procedure(s): MR shoulder LT wo con Accession Number(s): [id number] cc: Bimal Mcgowan M.D.; Shaikh Krish Grimes [place] [phone] Patient Name: KEL CASTILLO MRN: [id number] date: 1955 Sex: M Assigned Patient Location: MRI Current Patient Location: MRI Accession/Order Number: [id number] Exam Date: 09/05/2023 14:55 Report Date: 09/05/2023 [...] Rivero M.D. Signed By: 09/05/238 DD/ TD/TT: Environmental Law Professor:TBHRadiology, Radiologist, - 09/05/2023 [place] [address] Magnetic Resonance Report Signed Patient: KEL CASTILLO Jr. MR#: [id number] : 1955 Acct:[id number] Age/Sex: 68 / M ADM Date: 09/05/23 Loc: MRI Attending Dr: Bimal Mcgowan M.D. Ordering Physician: Bimal Mcgowan M.D. Date of Service: 09/05/23 Procedure(s): MR shoulder LT wo con Accession Number(s): [id number] cc: Bimal Mcgowan M.D.; Shaikh Krish Grimes [place] [address] Patient Name: KEL CASTILLO MRN: [id number] date: 1955 Sex: M Assigned Patient Location: MRI Current Patient Location: MRI Accession/Order Number: [id number] Exam Date: 09/05/2023 14:55 Report Date: 09/05/2023 [...] Signed By: 09/05/23 1618 DD/ 14 TD/TT: Environmental Law Professor: [facility] HealthcareRadiology Study observation (narrative)[facility] SHOULDER LEFT W/OOrdered By: Radiologist Radiology on 61-98-2004VYN[employer]59 Work Phone: XR Shoulder - left 2 View[address] 06-54-4052Vft [place] [address] XRay Report Signed Patient: KEL CASTILLO Jr. MR#: [id number] : 1955 Acct:[id number] Age/Sex: 68 / M ADM Date: 08/26/23 Loc: RAD Attending Dr: Bmial Mcgowan M.D. Ordering Physician: Bimal Mcgowan M.D. Date of Service: 08/26/23 Procedure(s): XR shoulder LT min 2V Accession Number(s): [id number] cc: Bimal Mcgowan M.D.; Shaikh Krish Grimes [address] [address] Patient Name: KEL CASTILLO MRN: [facility]:[id number] date: 1955 Sex: M Assigned Patient Location: [facility] Current Patient Location: [facility] Accession/Order Number: [id number] Exam Date: 08/26/2023 11:50 Report Date: 08/26/2023 [...] Signed By: 08/26/23 1517 DD/ 13 TD/TT: Environmental Law Professor:REJIHRadiology, Radiologist, MD - 10/16/2023 The [place] [id number] XRay Report Signed Patient: KEL CASTILLO Jr. MR#: [id number] : 1955 Acct:[id number] Age/Sex: 68 / M ADM Date: 08/26/23 Loc: RAD Attending Dr: Bimal Mcgowan M.D. Ordering Physician: Bimal Mcgowan M.D. Date of Service: 08/26/23 Procedure(s): XR shoulder LT min 2V Accession Number(s): [id number] cc: Bimal Mcgowan M.D.; Shaikh Krish Grimes [place] [phone] Patient Name: KEL CASTILLO MRN: [id number] date: 1955 Sex: M Assigned Patient Location: RAD Current Patient Location: [facility] Accession/Order Number: [id number] Exam Date: 08/26/2023 11:50 Report Date: 08/26/2023 [...] Signed By: 08/26/23 1517 DD/ 13 TD/TT: Environmental Law Professor: [facility]PITALHolden HealthcareRadiology Study observation (narrative)[facility] HealthcareXR Shoulder - left 2 ViewsOrdered By: Radiologist Radiology on 69-61-7850NSIR Healthcare Work Phone: XR Shoulder - left 2 Viewson 19-41-9422BbeRacine, [place] [address] XRay Report Signed Patient: KEL CASTILLO Jr. MR#: [id number] : 1955 Acct:[id number] Age/Sex: 68 / M ADM Date: 07/29/23 Loc: RAD Attending Dr: Bimal Mcgowan M.D. Ordering Physician: Bimal Mcgowan M.D. Date of Service: 07/29/23 Procedure(s): XR shoulder LT min 2V Accession Number(s): [id number] cc: Bimal Mcgowan M.D.; Shaikh Krish Grimes The [address] [address] Patient Name: KEL CASTILLO MRN: [facility]:[id number] date: 1955 Sex: M Assigned Patient Location: RAD Current Patient Location: RAD Accession/Order Number: [id number] Exam Date: 07/29/2023 11:20 Report Date: 07/29/2023 [...] or dislocation. Glenohumeral relationship appears grossly unremarkable. Eloi-za-jyjduwgo degenerative changes about the acromioclavicular joint. Soft tissues are grossly within normal limits. Postoperative sternotomy wires and clips are present. XR/XR shoulder LT min 2V IMPRESSION: Left shoulder study fails to demonstrate definite acute fracture or dislocation. Follow-up as needed. Electronically authenticated by: KEL JOSHUA Date: 07/29/2023 16:01 Dictated By: Kel Joshua M.D. Signed By: 07/29/23 1604 DD/ 1601 TD/TT: Environmental Law Professor:TBHRadiology, Radiologist, MD - 07/29/2023 [place] [address] XRay Report Signed Patient: KEL CASTILLO Jr. MR#: [id number] : 1955 Acct:[id number] Age/Sex: 68 / M ADM Date: 07/29/23 Loc: RAD Attending Dr: Bimal Mcgowan M.D. Ordering Physician: Bimal Mcgowan M.D. Date of Service: 07/29/23 Procedure(s): XR shoulder LT min 2V Accession Number(s): [id number] cc: Bimal Mcgowan M.D.; Shaikh Krish Grimes [place] [address] Patient Name: KEL CASTILLO MRN: [facility]:[id number] date: 1955 Sex: M Assigned Patient Location: [facility] Current Patient Location: RAD Accession/Order Number: [id number] Exam Date: 07/29/2023 11:20 Report Date: 07/29/2023 [...] or dislocation. Glenohumeral relationship appears grossly unremarkable. Supw-we-zxbnitpn degenerative changes about the acromioclavicular joint. Soft tissues are grossly within normal limits. Postoperative sternotomy wires and clips are present. XR/XR shoulder LT min 2V IMPRESSION: Left shoulder study fails to demonstrate definite acute fracture or dislocation. Follow-up as needed. Electronically authenticated by: KEL JOSHUA Date: 07/29/2023 16:01 Dictated By: Kel Joshua M.D. Signed By: 07/29/23 1604 DD/ 1601 TD/TT: Environmental Law Professor: NOMHolden HealthcareRadiology Study observation (narrative)NOMS HealthcareXR Shoulder - left 2 ViewsOrdered By: Radiologist Radiology on 21-40-7599SJEV Healthcare Work Phone: ct abdomen pelvis wo conon 79-84-7418KN abdomen pelvis wo [facility] [place] [address] CT Scan Report Signed Patient: Kel Castillo Jr MR#: [id number] : 1955 Acct:[id number] Age/Sex: 67 / M ADM Date: 04/09/23 Loc: ER Room: Type: [facility] ER Attending Dr: Copies to: Lucy [...] Damien Negrete M.D.04/09/2023 2:28 PM Dictation Location: [place] [address] Transcribed By: [facility] 04/09/23 1428 Dictated By: Damien Negrete DO 04/09/23 1422 Signed By: 04/09/23 1428[facility] DaytonComplete Blood Count Auto Diffon 89-95-8776Stlyzncxr (Bld) [#/Vol]0.1 10*3/uLNormal0.0-0.2FMount Carmel Health SystemComment on above:Result Comment: PERFORMED BY: [place] [address] PATHOLOGIST ADZING AND BORING MACHINE OPERATOR TROY SIGALA M.D.Performed By: #### CBC #### [place] [address] USABasophils/100 WBC (Bld)1.0 %Normal.[facility] - AkronComment on above:Performed By: #### CBC #### [place] [address] USAEosinophils (Bld) [#/Vol]0.2 10*3/uLNormal0.0-0.45 [facility] - AkronComment on above:Performed By: #### CBC #### [place] [address] USAEosinophils/100 WBC (Bld)2.8 %Normal.[facility] - AkronComment on above:Performed By: #### CBC #### [place] [address] USAErythrocyte distribution width (RBC) [Ratio]14.5 %Normal 12.0-14.8[facility] - AkronComment on above:Performed By: #### CBC #### [place] [address] USAHematocrit (Bld) [Volume fraction]39.2 %Jvwudh38.8-50.0 [facility] - AkronComment on above:Performed By: #### CBC #### [place] [address] USAHemoglobin (Bld) [Mass/Vol]13.0 g/wJMebtkc24.0-17.0 [facility] - AkronComment on above:Performed By: #### CBC #### [place] [address] USALymphocytes (Bld) [#/Vol]1.1 10*3/uLNormal1.00-4.8 [facility] - AkronComment on above:Performed By: #### CBC #### [place] [address] USALymphocytes/100 WBC (Bld)14.1 %Normal.[facility] - AkronComment on above:Performed By: #### CBC #### [facility] [address] [place], [place] [address]H (RBC) [Entitic mass]30.4 ouEeiyks96.5-35.2FMount Carmel Health SystemComment on above:Performed By: #### CBC #### [address]V (RBC) [Entitic vol]91.5 sOZybkfl73.5-101[facility] - AkronComment on above:Performed By: #### CBC #### [place] [address] USAMean Corpuscular HGB Conc33.2 g/rMVeoqvz80.5-35.6FMount Carmel Health SystemComment on above:Performed By: #### CBC #### [place] [address] USAMonocytes (Bld) [#/Vol]0.5 10*3/uLNormal0.0-0.8[facility] - AkronComment on above:Performed By: #### CBC #### [place] [address] USAMonocytes/100 WBC (Bld)16.97 %Normal0.00-20.00[facility] - AkronComment on above:Performed By: #### CBC #### [place] [address] USAMonocytes/100 WBC (Bld)6.6 %Normal.[facility] - AkronComment on above:Performed By: #### CBC #### [place] [address] USANeutrophils (Bld) [#/Vol]5.9 10*3/uLNormal1.8-7.7FMount Carmel Health SystemComment on above:Performed By: #### CBC #### [place] [address] USANeutrophils/100 WBC (Bld)75.5 %Normal.[facility] - AkronComment on above:Performed By: #### CBC #### [place] [address] USANRBC%0.0 /100{WBC}Normal0-0.5FMount Carmel Health SystemComment on above:Performed By: #### CBC #### [place] [address] USAPlatelet mean volume (Bld) [Entitic vol]7.5 fLNormal 6.6-10.1FMount Carmel Health SystemComment on above:Performed By: #### CBC #### [place] [address] USAPlatelets (Bld) [#/Vol]180 10*3/eHSekfnd961-319NdpadmahdSelect Medical Specialty Hospital - AkronComment on above:Performed By: #### CBC #### [place] [address] USARBC (Bld) [#/Vol]4.29 10*6/uLNormal3.90-5.60[facility] - AkronComment on above:Performed By: #### CBC #### [place] [address] USAWBC (Bld) [#/Vol]7.8 10*3/uLNormal4.1-10.5FMount Carmel Health SystemComment on above:Performed By: #### CBC #### [place] [address] USAComprehensive Metabolic Panelon 55-22-0610Rfwuqby [Mass/Vol]4.3 g/dLNormal3.5-5.7FMount Carmel Health SystemComment on above:Performed By: #### PTT, LIPASE, PT, CMP #### [place] [address] USAAlbumin/Globulin [Mass ratio]1.2 {ratio}NormalSelect Medical Specialty Hospital - AkronComment on above:Performed By: #### PTT, LIPASE, PT, CMP #### [facility] [address] [place] [address] USAALP [Catalytic activity/Vol]105 U/JQyha29-086QmrgmpecfSelect Medical Specialty Hospital - AkronComment on above:Performed By: #### PTT, LIPASE, PT, CMP #### [facility] [address] [place] [address] USAALT [Catalytic activity/Vol]61 U/LHigh7-52[facility] - AkronComment on above:Performed By: #### PTT, LIPASE, PT, CMP #### [facility] [address] [place] [address] USAAnion gap [Moles/Vol]12.5 mmol/LNormal6.0-15.0[facility] - AkronCommymichigan medical center on above:Performed By: #### PTT, LIPASE, PT, CMP #### [facility] [address] [place] [address] USAAST [Catalytic activity/Vol]62 U/DQmui09-03TlmikcaogSelect Medical Specialty Hospital - AkronComment on above:Performed By: #### PTT, LIPASE, PT, CMP #### [facility] [address] [place] [id number] USABilirubin [Mass/Vol]0.8 mg/dLNormal0.3-1.0[facility] - AkronCommymichigan medical center on above:Performed By: #### PTT, LIPASE, PT, CMP #### [facility] [address] [place] [address] USACalcium [Mass/Vol]9.0 mg/dLNormal8.6-10.3FMount Carmel Health SystemComment on above:Performed By: #### PTT, LIPASE, PT, CMP #### [facility] [address] [place] [id number] USAChloride [Moles/Vol]107 mmol/FQylmve22-513JtikgdxarSelect Medical Specialty Hospital - AkronComment on above:Performed By: #### PTT, LIPASE, PT, CMP #### [facility] [address] [place] [address] USACO2 [Moles/Vol]25.1 mmol/CMsylrc80.0-31.0[facility] - AkronComment on above:Performed By: #### PTT, LIPASE, PT, CMP #### [facility] [address] [place] [address] USACreatinine [Mass/Vol]1.76 mg/dLHigh0.70-1.30[facility] - AkronComment on above:Performed By: #### PTT, LIPASE, PT, CMP #### [facility] [address] [place] [address] USACreatinine Clr Calc Uspzolck35.17NoMetroHealth Parma Medical CenterComment on above:Performed By: #### PTT, LIPASE, PT, CMP #### [facility] [address] [place] [address] USAGFR/1.73 sq M.predicted MDRD (S/P/Bld) [Vol rate/Area] 41.342 mL/min/{1.73_m2}[facility] Hospital DaytonComment on above: Performed By: #### PTT, LIPASE, PT, CMP #### [facility] [address] [place] [address] USAGlobulin (S) [Mass/Vol]3.7 g/dLNoMetroHealth Parma Medical CenterComment on above:Performed By: #### PTT, LIPASE, PT, CMP #### [facility] [address] [place] [address] USAGlucose [Mass/Vol]89 mg/mSKnnmai61-917NnlreejonSelect Medical Specialty Hospital - AkronComment on above:Result Comment: Random Glucose Reference Range is dependent on time and content of last meal. Glucose of more than 200 mg/dL in a nonstressed, ambulatory subject supports the diagnosis of Diabetes Mellitus. ADA recommended reference rangePerformed By: #### PTT, LIPASE, PT, CMP #### [facility] [address] [place] [address] USAPotassium [Moles/Vol]4.6 mmol/LNormal3.5-5.1FMount Carmel Health SystemComment on above:Performed By: #### PTT, LIPASE, PT, CMP #### [facility] [address] [place] [address] USAProtein [Mass/Vol]8.0 g/dLNormal6.4-8.9[facility] - AkronComment on above:Performed By: #### PTT, LIPASE, PT, CMP #### [facility] [address] [place] [address] USASodium [Moles/Vol]140 mmol/XQhdrcn549-055OvaivuxmtSelect Medical Specialty Hospital - AkronComment on above:Performed By: #### PTT, LIPASE, PT, CMP #### [facility] [address] [place] [address] USAUrea nitrogen [Mass/Vol]25 mg/dLNormal7-25[facility] - AkronComment on above:Performed By: #### PTT, LIPASE, PT, CMP #### [facility] [address] [place] [address] USADipstick and Microscopicon 74-34-5079Iylpcmejas (U)Cloudy Critically abnormalCleBarberton Citizens HospitalComment on above:Order Comment: Name Collection Type:: Clean-Voided MidstreamPerformed By: #### ADDONUAPLUS #### [facility] [address] [place] [address] USABacteria,UrineNone SeenNormalNone SeenSelect Medical Specialty Hospital - AkronComment on above:Order Comment: Name Collection Type:: Clean- Voided MidstreamPerformed By: #### ADDONUAPLUS #### [facility] [address] [place] [address] USABilirubin,UrineNegativeNormalNegativeSelect Medical Specialty Hospital - AkronComment on above:Order Comment: Name Collection Type:: Clean- Voided MidstreamPerformed By: #### ADDONUAPLUS #### [facility] [address] [place], [place] [id number] USAColor (U)YellowNormalYellowSelect Medical Specialty Hospital - AkronComment on above:Order Comment: Name Collection Type:: Clean-Voided MidstreamPerformed By: #### ADDONUAPLUS #### [facility] [address] [place] [address] USAGlucose Ql (U)NormalNormalNormalSelect Medical Specialty Hospital - AkronComment on above:Order Comment: Name Collection Type:: Clean-Voided MidstreamPerformed By: #### ADDONUAPLUS #### [place] [address] USAHyaline Casts,UrineNone SeenNormal0-8[facility] - AkronComment on above:Order Comment: Name Collection Type:: Clean- Voided MidstreamResult Comment: PERFORMED BY: [place] [address] PATHOLOGIST ADZING AND BORING MACHINE OPERATOR TROY SIGALA M.D.Performed By: #### ADDONUAPLUS #### [place] [address] USAKetones Ql (U)NegativeNormalNegParkview Health Montpelier HospitalComment on above:Order Comment: Name Collection Type:: Clean- Voided MidstreamPerformed By: #### ADDONUAPLUS #### [place] [address] USALeukocyte esterase Test strip Ql (U)NegativeNormalNegative [facility] - AkronComment on above:Order Comment: Name Collection Type:: Clean-Voided MidstreamPerformed By: #### ADDONUAPLUS #### [place] [address] USANitrite,UrineNegativeNormcoNegParkview Health Montpelier HospitalComment on above:Order Comment: Name Collection Type:: Clean- Voided MidstreamPerformed By: #### ADDONUAPLUS #### [place] [id number] USAOccult Blood,UrineNegativeNormalNegParkview Health Montpelier HospitalComment on above:Order Comment: Name Collection Type:: Clean- Voided MidstreamResult Comment: PERFORMED BY: [place] [address] PATHOLOGIST ADZING AND BORING MACHINE OPERATOR TROY SIGALA M.D.Performed By: #### ADDONUAPLUS #### [facility] [address] [place] [address] USApH (U)5.5 [pH]Normal5.0-9.0[facility] - AkronComment on above:Order Comment: Name Collection Type:: Clean-Voided MidstreamPerformed By: #### ADDONUAPLUS #### [place] [address] USAProtein,UrineNegativeNormalNegativeSelect Medical Specialty Hospital - AkronComment on above:Order Comment: Name Collection Type:: Clean- Voided MidstreamPerformed By: #### ADDONUAPLUS #### [place] [address] USARBC LM.HPF (Urine sed) [#/Area]0 /[HPF]Normal0-[address] [place], [place] [address]Comment on above:Order Comment: Name Collection Type:: Clean-Voided MidstreamPerformed By: #### ADDONUAPLUS #### [place] [address] USASpecificy [place],Urine1.687Yrdkol1.001-1.030[facility] Hospital - AkronComment on above:Order Comment: Name Collection Type:: Clean-Voided MidstreamPerformed By: #### ADDONUAPLUS #### [place] [address] USASquamous Epithelial Cell,UrineNone SeenNormal[address] [place], [place] [address]Comment on above:Order Comment: Name Collection Type:: Clean-Voided MidstreamPerformed By: #### ADDONUAPLUS #### [place] [address] USAUrobilinogen,UrineNormalNormalNormalSelect Medical Specialty Hospital - AkronComment on above:Order Comment: Name Collection Type:: Clean- Voided MidstreamPerformed By: #### ADDONUAPLUS #### [place] [address] USAWBC LM.HPF (Urine sed) [#/Area]0 /[HPF]Normal0-4FMount Carmel Health SystemComment on above:Order Comment: Name Collection Type:: Clean-Voided MidstreamPerformed By: #### ADDONUAPLUS #### [address] [address] USALipaseon [id number] [Catalytic activity/Vol]92.0 U/L High11.0-82.0Select [facility] Hospital - AkronComment on above:Result Comment: PERFORMED BY: [place] [address] PATHOLOGIST ADZING AND BORING MACHINE OPERATOR TROY SIGALA M.D.Performed By: #### PTT, LIPASE, PT, CMP #### [place] [id number] USAPartial Thromboplastin Timeon 10-78-2227vVWK Coag (Bld) [Time]30.9 rUosfqw82.1-36.5FMount Carmel Health SystemComment on above: Result Comment: PERFORMED BY: [place] [address] PATHOLOGIST ADZING AND BORING MACHINE OPERATOR TROY SIGALA M.D.Performed By: #### PTT, LIPASE, PT, CMP #### [place] [id number] USAProthrombin Time INRon 75-68-0052DUR Coag (PPP) [Relative time]1.0 {INR}NormalSelect Medical Specialty Hospital - AkronComment on above:Result Comment: INR Therapeutic Range A) [...] By: #### PTT, LIPASE, PT, CMP #### [place] [id number] USAPT Coag (PPP) [Time]11.9 sNormal9.0-12.9[facility] Hospital - AkronComment on above:Performed By: #### PTT, LIPASE, PT, CMP #### [place] [id number] USACBC AUTO DIFFon [id number] #0.1 103/ulNormal0.0-0.1The [facility] HospitalComment on above:Performed By: #### CBC #### [facility] [address] [place] [address] Dr. Hattie NewsomeBasophils/100 WBC (Bld)0.8 %Normal0.2-2.0[facility] Comment on above:Performed By: #### CBC #### [facility] [address] [place] [address] Dr. Hattie Duarte #0.3 103/ulNormal0.0-0.7The [facility] HospitalComment on above: Performed By: #### CBC #### [facility] [address] [place] [address] Dr. Hattie Dongosinophils/100 WBC (Bld)3.2 %Normal0.9-7.0[facility] Comment on above:Performed By: #### CBC #### [facility] [address] [place] [address] Dr. Hattie Funezthrocyte distribution width (RBC) [Ratio]14.3 %Anztuw82.0-15.0 [facility] HospitalComment on above:Performed By: #### CBC #### [facility] [address] [place] [address] Dr. Hattie NewsomeHematocrit (Bld) [Volume fraction]39.7 %Critically low42.0-54.0 The [facility] HospitalComment on above:Performed By: #### CBC #### [facility] [address] [place] [address] Dr. Hattie NewsomeHemoglobin (Bld) [Mass/Vol]13.0 g/dLCritically low14.0-18.0The [facility] HospitalComment on above:Performed By: #### CBC #### [facility] [address] [place] [address] Dr. Hattie Max #0.06 10e3/ulCritically high0.00-0.03The [facility] Comment on above:Performed By: #### CBC #### [facility] [address] [address] [address] Hattie Max %0.8 %Critically high0.0-0.5The [facility] HospitalComment on above:Performed By: #### CBC #### [facility] [address] [place] [address] Dr. Hattie Priest #1.3 103/ulNormal1.2-3.8The [facility] HospitalComment on above:Performed By: #### CBC #### [facility] [address] [place] [address] Dr. Hattie Daleyhocytes/100 WBC (Bld)16.8 %Critically low20.5-60.0The [facility] HospitalComment on above:Performed By: #### CBC #### [facility] [address] [place] [address] Dr. Hattie BorreroUAL DIFF REQNONormalThe [facility] HospitalComment on above: Performed By: #### CBC #### [facility] [address] [place] [address] Dr. Hattie Jessica (RBC) [Entitic mass]30.5 wkLqilsc80.9-34.0The [facility] HospitalComment on above:Performed By: #### CBC #### [facility] [address] [place] [address] Dr. Hattie Jessica (RBC) [Mass/Vol]32.7 g/cWIffdov15.9-35.2The [facility] HospitalComment on above:Performed By: #### CBC #### [facility] [address] [place] [address] Dr. Hattie Jessica (RBC) [Entitic vol]93.2 xPBzhrqk83.0-94.0The [facility] HospitalComment on above:Performed By: #### CBC #### [facility] [address] [place] [address] Dr. Hattie Jeff #0.5 103/ulNormal0.3-0.8The [facility] HospitalComment on above:Performed By: #### CBC #### [facility] [address] [place] [address] [address] Hattie Learyocytes/100 WBC (Bld)7.0 %Normal1.7-12.0The [facility] Comment on above:Performed By: #### CBC #### [facility] [address] [place] [address] [address] Hattie SalgadoUT #5.5 103/ulNormal1.4-6.5The [facility] HospitalComment on above:Performed By: #### CBC #### [facility] [address] [place] [address] Dr. Hattie Salgadoutrophils/100 WBC (Bld)71.4 %Lvxizf69.0-75.0The [facility] HospitalComment on above:Performed By: #### CBC #### [facility] [address] [place] [address] Dr. Hattie NewsomePlatelet mean volume (Bld) [Entitic vol]9.4 fLCritically low 9.5-13.5The [facility] HospitalComment on above:Performed By: #### CBC #### [facility] [address] [place] [address] Dr. Hattie NewsomePLT169 103/kyKlfyai045-658Olp [facility] HospitalComment on above: Performed By: #### CBC #### [facility] [address] [place] [address] Dr. Hattie NewsomeRBC4.26 106/ulCritically low4.70-6.10The [facility] HospitalComment on above:Performed By: #### CBC #### [facility] [address] [place] [address] Dr. Hattie NewsomeWBC7.7 103/ulNormal4.0-11.0The [facility] HospitalComment on above: Performed By: #### CBC #### [facility] [address] [place] [address] Dr. Hattie NewsomeLIPID PROFILEon 12-36-1240BZEW-HDL RATIO NORMSEE BELOWOhioHealth Grove City Methodist HospitalComment on above:Result Comment: 3.3 - 4.4 LOW RISK 4.4 - 7.1 AVERAGE RISK 7.1 - 11.0 MODERATE RISK >11.0 HIGH RISKPerformed By: #### LIPID #### [facility] [address] [place] [address] Dr. Hattie NewsomeCholesterol [Mass/Vol]131 mg/dLNormal<=200[facility] Comment on above:Performed By: #### LIPID #### [facility] [address] [place] [address] Dr. Hattie NewsomeCholesterol in HDL [Mass/Vol]40 mg/qHQcfwtg64-24MyjPromedica Memorial HospitalComment on above:Performed By: #### LIPID #### [facility] [address] [place] [address] Dr. Hattie NewsomeCholesterol in LDL [Mass/Vol]64.6 mg/dLOhioHealth Grove City Methodist HospitalComment on above:Performed By: #### LIPID #### [facility] [address] [place] [address] Dr. Hattie Dodgeesterthai.total/Cholesterol in HDL [Mass ratio]3.3 {ratio} NormalPromedica Memorial HospitalComment on above:Performed By: #### LIPID #### [facility] [address] [place] [address] Dr. Hattie Hemphill NORMAL> or = 60 mg/dl - LOW CARDIOVASCULAR RISK <40 mg/dl - HIGH CARDIOVASCULAR RISKOhioHealth Grove City Methodist HospitalComment on above:Performed By: #### LIPID #### [facility] [address] [place] [address] Dr. Hattie NewsomeLDL CALC NORMALSEE BELOWOhioHealth Grove City Methodist HospitalComment on above:Result Comment: <100 mg/dl OPTIMAL 100 - 129 mg/dl NEAR OR ABOVE OPTIMAL 130 - 159 mg/dl BORDERLINE HIGH 160 - 189 mg/dl HIGH >190 mg/dl VERY HIGH Performed By: #### LIPID #### [facility] [address] [place] [address] Dr. Hattie NewsomeTriglyceride [Mass/Vol]132 mg/dLNormal<=150[facility] Comment on above:Performed By: #### LIPID #### [facility] [address] [place] [address] Dr. Hattie NewsomeVLDL CALC26.4 mg/dLNoCleveland Clinic South Pointe HospitalComment on above: Performed By: #### LIPID #### [facility] [address] [place] [address] Dr. Hattie NewsomePARATHYROID HORMONE- RELATED PEPTIDEon 16-27-3297QGXlA (PTH- Related Peptide)<2.0NoCleveland Clinic South Pointe HospitalComment on above:Result Comment: This test was developed and its performance characteristics determined by [employer]. It has not been cleared or approved [...] contact the laboratory.Performed By: #### PTHP #### [facility] [address] [place] [address] Dr. Hattie NewsomeCBC AUTO DIFFon [id number] #0.1 103/ulNormal0.0-0.1[facility] HospitalComment on above:Performed By: #### URIC, CMP, MG #### [facility] [address] [place] [address] Dr. Hattie NewsomeBasophils/100 WBC (Bld)0.9 %Normal0.2-2.0[facility] Comment on above:Performed By: #### URIC, CMP, MG #### [facility] [address] [place] [address] Dr. Hattie Duarte #0.2 103/ulNormal0.0-0.7The [facility] HospitalComment on above: Performed By: #### URIC, CMP, MG #### [facility] [address] [place] [address] Dr. Hattie Dongosinophils/100 WBC (Bld)3.4 %Normal0.9-7.0The [facility] Comment on above:Performed By: #### URIC, CMP, MG #### [facility] [address] [place] [address] Dr. Hattie Dongrythrocyte distribution width (RBC) [Ratio]14.5 %Zzswcq58.0-15.0 [facility] HospitalComment on above:Performed By: #### URIC, CMP, MG #### [facility] [address] [place] [address] Dr. Hattie NewsomeHematocrit (Bld) [Volume fraction]40.1 %Critically low42.0-54.0 The [facility] HospitalComment on above:Performed By: #### URIC, CMP, MG #### [facility] [address] [place] [address] Dr. Hattie NewsomeHemoglobin (Bld) [Mass/Vol]13.6 g/dLCritically low14.0-18.0The [facility] HospitalComment on above:Performed By: #### URIC, CMP, MG #### [facility] [address] [place] [address] Dr. Hattie Max #0.04 10e3/ulCritically high0.00-0.03[facility] Comment on above:Performed By: #### URIC, CMP, MG #### [facility] [address] [place] [address] Dr. Hattie Max %0.6 %Critically high0.0-0.5The [facility] HospitalComment on above:Performed By: #### URIC, CMP, MG #### [facility] [address] [place] [address] Dr. Hattie Priest #0.9 103/ulCritically low1.2-3.8The [facility] Comment on above:Performed By: #### URIC, CMP, MG #### [facility] [address] [place] [address] Dr. Hattie Mendiolamphocytes/100 WBC (Bld)13.1 %Critically low20.5-60.0[facility] HospitalComment on above:Performed By: #### URIC, CMP, MG #### [facility] [address] [address] [address] Hattie Chanel DIFF REQNONormalThe [facility] HospitalComment on above: Performed By: #### URIC, CMP, MG #### [facility] [address] [place] [address] Dr. Hattie Jessica (RBC) [Entitic mass]30.9 kzHpecfa81.9-34.0The [facility] HospitalComment on above:Performed By: #### URIC, CMP, MG #### [facility] [address] [place] [address] Dr. Hattie Jessica (RBC) [Mass/Vol]33.9 g/lAIguxch21.9-35.2The [facility] HospitalComment on above:Performed By: #### URIC, CMP, MG #### [facility] [address] [place] [address] Dr. Hattie Jessica (RBC) [Entitic vol]91.1 yQZgcdpw02.0-94.0The [facility] HospitalComment on above:Performed By: #### URIC, CMP, MG #### [facility] [address] [place] [address] Dr. Hattie Jeff #0.3 103/ulNormal0.3-0.8The [facility] HospitalComment on above:Performed By: #### URIC, CMP, MG #### [facility] [address] [place] [address] Dr. Hattie Learyocytes/100 WBC (Bld)5.1 %Normal1.7-12.0The [facility] Comment on above:Performed By: #### URIC, CMP, MG #### [facility] [address] [place] [address] Dr. Hattie Choe #5.0 103/ulNormal1.4-6.5The [facility] HospitalComment on above:Performed By: #### URIC, CMP, MG #### [facility] [address] [place] [address] Dr. Hattie Salgadoutrophils/100 WBC (Bld)76.9 %Critically high43.0-75.0The [facility] HospitalComment on above:Performed By: #### URIC, CMP, MG #### [facility] [address] [place] [address] Dr. Hattie Walker mean volume (Bld) [Entitic vol]9.0 fLCritically low 9.5-13.5The [facility] HospitalComment on above:Performed By: #### URIC, CMP, MG #### [facility] [address] [place] [address] Dr. Hattie NewsomePLT160 103/lkRcouee435-080Cau [facility] HospitalComment on above: Performed By: #### URIC, CMP, MG #### [facility] [address] [place] [address] Dr. Hattie NewsomeRBC4.40 106/ulCritically low4.70-6.10The [facility] on above:Performed By: #### URIC, CMP, MG #### [facility] [address] [place] [address] Dr. Hattie NewsomeWBC6.5 103/ulNormal4.0-11.0The [facility] on above: Performed By: #### URIC, CMP, MG #### [facility] [address] [place] [address] Dr. Hattie NewsomeMAGNESIUMon 78-81-5844Vraprghlg [Mass/Vol]1.8 mg/dLNormal1.8-2.4 The [facility] HospitalCommymichigan medical center on above:Performed By: #### URIC, CMP, MG #### [facility] [address] [place] [address] Dr. Hattie NewsomePROF 14(COMP METB)on 85-06-6597Rqrdmkt [Mass/Vol]3.9 g/dLNormal 3.4-5.0The [facility] HospitalComment on above:Performed By: #### URIC, CMP, MG #### [facility] [address] [place] [address] Dr. Hattie NewsomeAlbumin/Globulin [Mass ratio]1.0 {ratio}NormalThe Cara HospitalComment on above:Performed By: #### URIC, CMP, MG #### [facility] [address] [address] [address] Hattie Govea [Catalytic activity/Vol]136 U/LCritically imjq49-522Lir [facility] HospitalComment on above:Performed By: #### URIC, CMP, MG #### [facility] [address] [place] [address] Dr. Hattie Mejia [Catalytic activity/Vol]122 U/LCritically orlj57-66Zqg [facility] HospitalComment on above:Performed By: #### URIC, CMP, MG #### [facility] [address] [place] [address] Dr. Hattie Lugoon gap [Moles/Vol]12.4 mmol/LNormalThe [facility] Comment on above:Performed By: #### URIC, CMP, MG #### [facility] [address] [place] [address] Dr. Hattie He [Catalytic activity/Vol]72 U/LCritically tedq82-70Ngl [facility] on above:Performed By: #### URIC, CMP, MG #### [facility] [address] [place] [address] Dr. Hattie NewsomeBilirubin [Mass/Vol]0.5 mg/dLNormal0.2-1.0[facility] Comment on above:Performed By: #### URIC, CMP, MG #### [facility] [address] [place] [address] Dr. Hattie NewsomeCalcium [Mass/Vol]9.1 mg/dLNormal8.5-10.1[facility] Comment on above:Performed By: #### URIC, CMP, MG #### [facility] [address] [place] [address] Dr. Hattie NewsomeChloride [Moles/Vol]106 mmol/CZfcdiv77-893ShzPromedica Memorial Hospital Comment on above:Performed By: #### URIC, CMP, MG #### [facility] [address] [place] [address] Dr. Yilan ChangCO2 [Moles/Vol]25.9 mmol/EEkjkdc68.0-32.0The [facility] Comment on above:Performed By: #### URIC, CMP, MG #### [facility] [address] [place] [address] Dr. Hattie NewsomeCreatinine [Mass/Vol]1.54 mg/dLCritically high0.70-1.30The [facility] HospitalComment on above:Performed By: #### URIC, CMP, MG #### [facility] [address] [place] [address] Dr. Kuhn ChangEGFR-AF ZAJRWCTL30 mL/min/1.73x1Jhnxirumwn low>=60The [facility] HospitalComment on above:Performed By: #### URIC, CMP, MG #### [facility] [address] [place] [address] Dr. Hattie DongGFR-NON AF YFQQBOAE17 mL/min/1.78c3Kirfwokwfu low>=60The [facility] HospitalComment on above:Performed By: #### URIC, CMP, MG #### [facility] [address] [place] [address] Dr. Hattie NewsomeGlobulin (S) [Mass/Vol]4.0 g/dLNormalThe [facility] HospitalComment on above:Performed By: #### URIC, CMP, MG #### [facility] [address] [place] [address] Dr. Hattie NewsomeGlucose [Mass/Vol]104 mg/lLAblnri68-834GnmPromedica Memorial Hospital Comment on above:Performed By: #### URIC, CMP, MG #### [facility] [address] [place] [address] Dr. Hattie NewsomePotassium [Moles/Vol]4.3 mmol/LNormal3.5-5.1The [facility] Comment on above:Performed By: #### URIC, CMP, MG #### [facility] [address] [place] [address] Dr. Hattie NewsomeProtein [Mass/Vol]7.9 g/dLNormal6.4-8.2The [facility] Comment on above:Performed By: #### URIC, CMP, MG #### [facility] [address] [address] [address] Hattie Galeanaum [Moles/Vol]140 mmol/HYpdgbc391-680Lms [facility] Comment on above:Performed By: #### URIC, CMP, MG #### [facility] [address] [address] [address] Hattie Murguia nitrogen [Mass/Vol]14.0 mg/dLNormal7.0-18.0The [facility] HospitalComment on above:Performed By: #### URIC, CMP, MG #### [facility] [address] [address] [address] Hattie Murguia nitrogen/Creatinine [Mass ratio]9.1 mg/mgNormalThe [facility] HospitalComment on above:Performed By: #### URIC, CMP, MG #### [facility] [address] [place] [address] Dr. Hattie DONATOon 03-26-7008Kkuzkraac Ql (U)NegativeNormalNEGATIVEPromedica Memorial HospitalComment on above:Performed By: #### UA #### [facility] [address] [place] [address] Dr. Hattie Shah (U)CLEARNormalCLEARThe [facility] HospitalComment on above: Performed By: #### UA #### [facility] [address] [place] [address] Dr. Hattie Valera (U)YELLOWNormalYELLOWPromedica Memorial HospitalComment on above: Performed By: #### UA #### [facility] [address] [place] [address] Dr. Hattie NewsomeGlucose Ql (U)NegativeNormalNEGATIVEPromedica Memorial HospitalComment on above:Performed By: #### UA #### [facility] [address] [place] [address] Dr. Hattie NewsomeHemoglobin Ql (U)NegativeNormalNEGUniversity Hospitals Ely[facility] Medical Center Comment on above:Performed By: #### UA #### [facility] [address] [place] [address] Dr. Hattie Goodwin Ql (U)NegativeNormalNEGATIVEThe [facility] HospitalComment on above:Performed By: #### UA #### [facility] [address] [place] [address] Dr. Hattie NewsomeLEUKOCYTESNegativeNormalNEGATIVEThe [facility] HospitalComment on above:Performed By: #### UA #### [facility] [address] [place] [address] Dr. Hattie Kincaidtrprem Ql (U)NegativeNormalNEGATIVEThe [facility] HospitalComment on above:Performed By: #### UA #### [facility] [address] [place] [address] Dr. Hattie NewsomepH (U)5.5 [pH]Normal5-9The [facility] HospitalComment on above: Performed By: #### UA #### [facility] [address] [place] [address] Dr. Hattie NewsomeSPEC GRAVITY>=1.350Szimpjkz6.005-<=1.025The [facility] Comment on above:Performed By: #### UA #### [facility] [address] [place] [address] Dr. Hattie Prado PROTEINNegativeNormalNEGATIVE/ TRACEThe [facility] Comment on above:Performed By: #### UA #### [facility] [address] [place] [address] Dr. Hattie Phillipbilinogen Qn (U)1.0 {Xavier'U}/dLNormal0.2 - 1.0The [facility] HospitalComment on above:Performed By: #### UA #### [facility] [address] [place] [address] Dr. Hattie NewsomeURIC ACID SERUMon [id number] [Mass/Vol]6.8 mg/dLNormal 3.5-7.2The [facility] HospitalComment on above:Performed By: #### URIC, CMP, MG #### [facility] [address] [place] [address] Dr. Hattie Lauren T PROTEIN CREAT RATIOon 89-30-0990Bhovwlv (U) [Mass/Vol] 27.5 mg/dLCritically high<=12.0[facility] HospitalComment on above:Performed By: #### URTPCR #### [facility] [address] [place] [address] Dr. Hattie Waldrop PROT CREAT RAT0.15NormalPromedica Memorial HospitalComment on above: Performed By: #### URTPCR #### [facility] [address] [place] [address] Dr. Hattie Lauren RFWVK627.29 mg/dICbizrx45.00-300.00[facility] Comment on above:Performed By: #### URTPCR #### [facility] [address] [place] [address] Dr. Hattie NewsomeVITAMIN D 25 OHon 65-90-9083GPG D 25-OH81.5 ng/mLNormalPromedica Memorial HospitalComment on above:Performed By: #### VITAD #### [facility] [address] [place] [address] Dr. Hattie Beaulieu D RANGESSEE BELOWOhioHealth Grove City Methodist HospitalComment on above: Result Comment: <20 ng/mL Vit D deficient 20 - <30 ng/mL Vit D insufficient 30 - 100 ng/mL Vit D sufficient >100 ng/mL Potential ToxicityPerformed By: #### VITAD #### [facility] [address] [place] [address] Dr. aHttie DongCHOCARDIJamie M/2D COMPLETEon 29-68-2151MNWJEBBDUY M/2D COMPLETE Patient: KEL CASTILLO Exam Date: 02/21/2022 : 1955 Gender:M Ordering : DR SARAH TOLLIVER M.D. Admission #: [id number] Family : Order #: [id number] CLICK HERE TO VIEW EXAM ECHOCARDIOGRAM REPORT [...] Tio Yepez M.D. on 02/21/2022 at 16:31[facility] HospitalNo Panel Informationon [id number] ClinicBASIC METABOLIC PANELon 80-55-8599Pwdahkt [Mass/Vol]9.2 mg/dLNormal8.6-10.3The [facility] DaytonComment on above:Order Comment: No: Do not add to previous draw Performed By: #### [id number], [id number] #### [facility] [address] [place] [address], USAChloride [Moles/Vol]108 mmol/SInpg69-196Ruu [facility] DaytonComment on above:Order Comment: No: Do not add to previous drawPerformed By: #### [id number], [id number] #### [facility] [address] [place] [address], [place]2 [Moles/Vol]26 mmol/UQvfckb09-72Zmy [facility] DaytonComment on above:Order Comment: No: Do not add to previous draw Performed By: #### [id number], [id number] #### [facility] [address] [place] [address], USACreatinine [Mass/Vol]1.64 mg/dLHigh0.70-1.30The [facility] Hospital DaytonComment on above:Order Comment: No: Do not add to previous drawPerformed By: #### [id number], [id number] #### [facility] [address] [place] [address], USAGFR/1.73 sq M predicted among blacks MDRD (S/P/Bld) [Vol rate/Area]51 ml/min/1.73sq mAbnormal>60The [facility] Comment on above:Order Comment: No: Do not add to previous drawPerformed By: #### 86481, 01467 #### [facility] [address] [place] [address], USAGFR/1.73 sq M predicted among non-blacks MDRD (S/P/Bld) [Vol rate/Area]42 ml/min/1.73sq mAbnormal>60The [facility] DaytonComment on above:Order Comment: No: Do not add to previous drawPerformed By: #### 04316, 91840 #### [facility] [address] [place] [address], USAGlucose [Mass/Vol]100 mg/mIMvubym97-198Isg [facility] DaytonComment on above:Order Comment: No: Do not add to previous drawPerformed By: #### 43691, 49842 #### [facility] [address] [place] [address], USAPotassium [Moles/Vol]4.5 mmol/LNormal3.5-5.1The [facility] Hospital DaytonComment on above:Order Comment: No: Do not add to previous drawPerformed By: #### 88676, 74289 #### [facility] [address] [facility] [place] [address], USASodium [Moles/Vol]139 mmol/QYzdeuf201-598Yvw [facility] DaytonComment on above:Order Comment: No: Do not add to previous drawPerformed By: #### 52473, 25684 #### [facility] [address] [facility] [place] [address], USAUrea nitrogen [Mass/Vol]15 mg/dLNormal7-25The [facility] DaytonComment on above:Order Comment: No: Do not add to previous drawPerformed By: #### 28520, 82163 #### [facility] [address] [facility] [place] [address], USACBC W/DIFFon [id number] BASOPHILS0.1 10*3/uLNormal 0.0-0.2The [facility] Hospital DaytonComment on above:Order Comment: No: Do not add to previous drawPerformed By: #### 53048, 71536 #### [facility] [address] [facility] [place] [address], USAABS IMM GRANS0.1 10*3/uLNormal0.0-0.2The [facility] Hospital DaytonComment on above:Order Comment: No: Do not add to previous drawPerformed By: #### 38147, 11876 #### [facility] [address] [facility] [place] [address], USAABS NEUTROPHILS5.1 10*3/uLNormal1.6-7.6The [facility] Hospital DaytonComment on above:Order Comment: No: Do not add to previous drawPerformed By: #### 93672, 46404 #### [facility] [address] [facility] [place] [address], USABasophils/100 WBC (Bld)0.8 %Normal0.0-1.0The [facility] Hospital DaytonComment on above:Order Comment: No: Do not add to previous drawPerformed By: #### 19959, 02967 #### [facility] [address] [place] [address], USAEosinophils (Bld) [#/Vol]0.3 10*3/uLNormal0.0-0.5The [facility] Hospital DaytonComment on above:Order Comment: No: Do not add to previous drawPerformed By: #### 77301, 16401 #### [facility] [address] [place] [address], USAEosinophils/100 WBC (Bld)3.9 %Normal0.0-6.0The [facility] Hospital DaytonComment on above:Order Comment: No: Do not add to previous drawPerformed By: #### 88397, 53773 #### [facility] [address] [place] [address], USAErythrocyte distribution width (RBC) [Ratio]14.3 %Normal 11.5-15.0The [facility] Hospital DaytonComment on above:Order Comment: No: Do not add to previous drawPerformed By: #### 41061, 29971 #### [facility] [address] [place] [address], USAHematocrit (Bld) [Volume fraction]39.0 %Tveoud91.0-50.0The [facility] Hospital DaytonComment on above:Order Comment: No: Do not add to previous drawPerformed By: #### 52043, 57449 #### [facility] [address] [place] [address], USAHemoglobin (Bld) [Mass/Vol]12.3 g/dLLow13.0-17.0The [facility] Hospital DaytonComment on above:Order Comment: No: Do not add to previous drawPerformed By: #### 44920, 13645 #### [facility] [address] [place] [address], USAIMMATURE GRANS0.8 %Normal0.0-1.0The [facility] Hospital DaytonComment on above:Order Comment: No: Do not add to previous draw Performed By: #### 84656, 57656 #### [facility] [address] [place] [address], USALymphocytes (Bld) [#/Vol]1.2 10*3/uLNormal1.2-4.0The [facility] Hospital DaytonComment on above:Order Comment: No: Do not add to previous drawPerformed By: #### 87060, 85113 #### [facility] [address] [place] [id number], USALymphocytes/100 WBC (Bld)16.1 %Low20.0-45.0The [facility] Hospital DaytonComment on above:Order Comment: No: Do not add to previous drawPerformed By: #### 33692, 51748 #### [facility] [address] [place] [address], [facility] (RBC) [Entitic mass]29.9 diGuaikp25.0-33.0The [facility] Hospital DaytonComment on above:Order Comment: No: Do not add to previous drawPerformed By: #### 26554, 81599 #### [facility] [address] [place] [address], [facility]UGOHC (RBC) [Mass/Vol]31.5 g/dLLow32.0-35.0The [facility] Hospital DaytonComment on above:Order Comment: No: Do not add to previous drawPerformed By: #### 02093, 00978 #### [facility] [address] [place] [address], [facility] (RBC) [Entitic vol]94.9 cYDxwwmk62.0-98.0The [facility] Hospital DaytonComment on above:Order Comment: No: Do not add to previous drawPerformed By: #### 22952, 58728 #### [facility] [address] [place] [address], USAMonocytes (Bld) [#/Vol]0.5 10*3/uLNormal0.1-1.0The [facility] Hospital DaytonComment on above:Order Comment: No: Do not add to previous drawPerformed By: #### 31658, 00070 #### [facility] [address] [place] [address], USAMONOS6.3 %Normal5.0-12.0The [facility] Hospital DaytonComment on above:Order Comment: No: Do not add to previous drawPerformed By: #### 68811, 04313 #### [facility] [address] [place] [address], USANeutrophils/100 WBC (Bld)72.1 %High40.0-72.0The [facility] Hospital DaytonComment on above:Order Comment: No: Do not add to previous drawPerformed By: #### 60225, 08327 #### [facility] [address] [place] [address], USANucleated RBC/100 WBC (Bld) [Ratio]0 %Normal0-0The [facility] Hospital DaytonComment on above:Order Comment: No: Do not add to previous drawPerformed By: #### 61727, 63100 #### [facility] [address] [facility] [place] [address], USAPLAT [id number] 10*3/hMUmhvba470-149Emb [facility] DaytonComment on above:Order Comment: No: Do not add to previous draw Performed By: #### 62980, 65120 #### [facility] [address] [facility] [place] [address], USARBC (Bld) [#/Vol]4.11 10*6/uLLow4.20-5.70The [facility] Hospital DaytonComment on above:Order Comment: No: Do not add to previous drawPerformed By: #### 03697, 27059 #### [facility] [address] [facility] [place] [address], USAWBC (Bld) [#/Vol]7.13 10*3/uLNormal4.00-10.60The [facility] Hospital DaytonComment on above:Order Comment: No: Do not add to previous drawPerformed By: #### 41004, 32531 #### [facility] [address] [place] [address], USAUS ABDOMEN LIMITEDon [id number] ABDOMEN LIMITEDUnElyria Memorial Hospital Department of Radiology [address] [place] [id number] Patient Name: KEL CASTILLO : 1955 Sex: M Age: Race: White Pt. Location: [id number] Patient Status: I Ordered Date: 10/08/2019 9:30:00 [...] collection. Electronically signed: Brandy Wilson. Transcribed by: [id number], User Resident: BRANDY WILSON Electronically Signed by: BRANDY WILSON @ 10/08/2019 10:13 AM I personally read this/these film(s) with this Madison HealthComment on above:Order Comment: No: Do not add to previous drawBASIC METABOLIC PANELon [id number] [Mass/Vol]8.7 mg/dLNormal8.6-10.3 The [facility] Hospital DaytonComment on above:Order Comment: No: Do not add to previous drawPerformed By: #### 39173, 78274 #### [facility] [address] [place] [address], USAChloride [Moles/Vol]111 mmol/JOozg44-044Hiw [facility] Hospital DaytonComment on above:Order Comment: No: Do not add to previous drawPerformed By: #### 41207, 14218 #### [facility] [address] [place] [address], USACO2 [Moles/Vol]28 mmol/RPmoxqo34-22Ijm [facility] DaytonComment on above:Order Comment: No: Do not add to previous draw Performed By: #### 73704, 38491 #### [facility] [address] [place] [address], USACreatinine [Mass/Vol]1.59 mg/dLHigh0.70-1.30The [facility] Hospital DaytonComment on above:Order Comment: No: Do not add to previous drawPerformed By: #### 40953, 35710 #### [facility] [address] [place] [address], USAGFR/1.73 sq M predicted among blacks MDRD (S/P/Bld) [Vol rate/Area]53 ml/min/1.73sq mAbnormal>60The [facility] Comment on above:Order Comment: No: Do not add to previous drawPerformed By: #### 28903, 87218 #### [facility] [address] [place] [address], USAGFR/1.73 sq M predicted among non-blacks MDRD (S/P/Bld) [Vol rate/Area]44 ml/min/1.73sq mAbnormal>60The [facility] DaytonComment on above:Order Comment: No: Do not add to previous drawPerformed By: #### 30919, 71540 #### [facility] [address] [place] [address], USAGlucose [Mass/Vol]99 mg/vCGhpuzm55-893Fdm [facility] DaytonComment on above:Order Comment: No: Do not add to previous drawPerformed By: #### 15546, 82589 #### [facility] [address] [place] [address], USAPotassium [Moles/Vol]4.2 mmol/LNormal3.5-5.1The [facility] DaytonComment on above:Order Comment: No: Do not add to previous drawPerformed By: #### 23565, 03964 #### [facility] [address] [place] [address], USASodium [Moles/Vol]142 mmol/KMmptlk094-156Qkp [facility] DaytonComment on above:Order Comment: No: Do not add to previous drawPerformed By: #### 88156, 91781 #### [facility] [address] [place] [address], USAUrea nitrogen [Mass/Vol]16 mg/dLNormal7-25The [facility] DaytonComment on above:Order Comment: No: Do not add to previous drawPerformed By: #### 29589, 77230 #### [facility] [address] [place] [address], [facility]ICAL CENTERBCardiovascular Lab Reporton [id number] Lab ReportUnLakeHealth Tri[facility] Patient Name: Jose [facility] Kel MR #: [id number] Department of Physician: Sarah Tolliver Medicine MKristen Division of Service Date: 10/07/2019 Cardiology Birthdate: 1955 Adult Cardiovascular Room #: [id number] [facility] [address] [place], [place] [address] Cardiovascular Laboratory Report FINAL IMPRESSIONS: 1. Severe 3-vessel buckland coronary artery disease. 2. A 2/3 bypass [...] on the anatomic and fluoroscopic landmarks. A 6-Italian 11 cm sheath was inserted. Limited femoral [...] Tolliver M.D. Date Trans: 10/07/2019 02:55 P/mmo [id number] cc: Priyank Hendrickson M.D. [address] [place], [place] [id number] Nayana Bledsoe D. [address] [place] [address] [id number] Health Perrysburg HospitalMAGNESIUM BLOODon [id number] [Mass/Vol]2.1 mg/dLNormal1.9-2.7The [facility] Hospital DaytonComment on above:Order Comment: No: Do not add to previous draw Performed By: #### 36124, 54067 #### [facility] [address] [place] [address], USABASIC METABOLIC PANELon [id number] [Mass/Vol]8.7 mg/dLNormal8.6-10.3The [facility] DaytonComment on above:Order Comment: No: Do not add to previous drawPerformed By: #### 97114, 93870 #### [facility] [address] [place] [address], USAChloride [Moles/Vol]110 mmol/VOhwc22-519Dxc [facility] DaytonComment on above:Order Comment: No: Do not add to previous drawPerformed By: #### 51916, 91638 #### [facility] [address] [place] [address], USACO2 [Moles/Vol]26 mmol/CYunkzx91-18Cag [facility] DaytonComment on above:Order Comment: No: Do not add to previous draw Performed By: #### 35668, 03364 #### [facility] [address] [place] [address], USACreatinine [Mass/Vol]1.92 mg/dLHigh0.70-1.30The [facility] DaytonComment on above:Order Comment: No: Do not add to previous drawPerformed By: #### 27412, 07841 #### [facility] [address] [place] [address], USAGFR/1.73 sq M predicted among blacks MDRD (S/P/Bld) [Vol rate/Area]43 ml/min/1.73sq mAbnormal>60The [facility] Comment on above:Order Comment: No: Do not add to previous drawPerformed By: #### 16451, 53893 #### [facility] [address] [place] [address], USAGFR/1.73 sq M predicted among non-blacks MDRD (S/P/Bld) [Vol rate/Area]35 ml/min/1.73sq mAbnormal>60The [facility] DaytonComment on above:Order Comment: No: Do not add to previous drawPerformed By: #### 53226, 97911 #### [facility] [address] [place] [address], USAGlucose [Mass/Vol]96 mg/zXHokzog67-715Ekq [facility] DaytonComment on above:Order Comment: No: Do not add to previous drawPerformed By: #### 34795, 32552 #### [facility] [address] [place] [address], USAPotassium [Moles/Vol]4.4 mmol/LNormal3.5-5.1The [facility] DaytonComment on above:Order Comment: No: Do not add to previous drawPerformed By: #### 72278, 95500 #### [facility] [address] [place] [address], USASodium [Moles/Vol]140 mmol/AEurzam082-317Cke [facility] DaytonComment on above:Order Comment: No: Do not add to previous drawPerformed By: #### 68831, 42644 #### [facility] [address] [place] [address], USAUrea nitrogen [Mass/Vol]25 mg/dLNormal7-25The [facility] DaytonComment on above:Order Comment: No: Do not add to previous drawPerformed By: #### 39807, 84369 #### [facility] [address] [place] [address], USACalcium [Mass/Vol]8.8 mg/dLNormal8.6-10.3The [facility] Hospital DaytonComment on above:Order Comment: No: Do not add to previous drawPerformed By: #### 28636 #### [facility] [address] [place] [address], USAChloride [Moles/Vol]111 mmol/DBzvz33-922Sgd [facility] DaytonComment on above:Order Comment: No: Do not add to previous drawPerformed By: #### 06136 #### [facility] [address] [place] [address], USACO2 [Moles/Vol]25 mmol/ORwhiku18-21Nkf [facility] DaytonComment on above:Order Comment: No: Do not add to previous draw Performed By: #### 39397 #### [facility] [address] [place] [address], USACreatinine [Mass/Vol]1.94 mg/dLHigh0.70-1.30The [facility] DaytonComment on above:Order Comment: No: Do not add to previous drawPerformed By: #### 38484 #### [facility] [address] [place] [address], USAGFR/1.73 sq M predicted among blacks MDRD (S/P/Bld) [Vol rate/Area]42 ml/min/1.73sq mAbnormal>60The [facility] Comment on above:Order Comment: No: Do not add to previous drawPerformed By: #### 48987 #### [facility] [address] [place] [address], USAGFR/1.73 sq M predicted among non-blacks MDRD (S/P/Bld) [Vol rate/Area]35 ml/min/1.73sq mAbnormal>60The [facility] DaytonComment on above:Order Comment: No: Do not add to previous drawPerformed By: #### 46013 #### [facility] [address] [facility] [place] [address], USAGlucose [Mass/Vol]102 mg/mGDlcf63-951Fnr [facility] DaytonComment on above:Order Comment: No: Do not add to previous drawPerformed By: #### 38877 #### [facility] [address] [facility] [place] [address], USAPotassium [Moles/Vol]4.5 mmol/LNormal3.5-5.1The [facility] DaytonComment on above:Order Comment: No: Do not add to previous drawPerformed By: #### 38810 #### [facility] [address] [facility] [place] [address], USASodium [Moles/Vol]140 mmol/YShkdcr771-103Wfl [facility] DaytonComment on above:Order Comment: No: Do not add to previous drawPerformed By: #### 82164 #### [facility] [address] [facility] [place] [address], USAUrea nitrogen [Mass/Vol]27 mg/dLHigh7-25The [facility] DaytonComment on above:Order Comment: No: Do not add to previous drawPerformed By: #### 44166 #### [facility] [address] [facility]. [place] [id number], [facility] MEDICAL CENTERBCBC W/DIFFon 12-43-9113ZZQ BASOPHILS0.1 10*3/uLNormal 0.0-0.2The [facility] Hospital DaytonComment on above:Order Comment: No: Do not add to previous drawPerformed By: #### 16115 #### [facility] [address] [facility] [place] [address], USAABS IMM GRANS0.1 10*3/uLNormal0.0-0.2The [facility] DaytonComment on above:Order Comment: No: Do not add to previous drawPerformed By: #### 06473 #### [facility] [address] [facility] [place] [address], USAABS NEUTROPHILS4.2 10*3/uLNormal1.6-7.6The [facility] Hospital DaytonComment on above:Order Comment: No: Do not add to previous drawPerformed By: #### 67956 #### [facility] [address] [facility] [place] [address], USABasophils/100 WBC (Bld)0.9 %Normal0.0-1.0The [facility] DaytonComment on above:Order Comment: No: Do not add to previous drawPerformed By: #### 89297 #### [facility] [address] [facility] [place] [address], USAEosinophils (Bld) [#/Vol]0.3 10*3/uLNormal0.0-0.5The [facility] Hospital DaytonComment on above:Order Comment: No: Do not add to previous drawPerformed By: #### 43027 #### [facility] [address] [facility] [place] [address], USAEosinophils/100 WBC (Bld)4.8 %Normal0.0-6.0The [facility] Hospital DaytonComment on above:Order Comment: No: Do not add to previous drawPerformed By: #### 46211 #### [facility] [address] [place] [address], USAErythrocyte distribution width (RBC) [Ratio]14.3 %Normal 11.5-15.0The [facility] Hospital DaytonComment on above:Order Comment: No: Do not add to previous drawPerformed By: #### 42370 #### [facility] [address] [place] [address], USAHematocrit (Bld) [Volume fraction]37.3 %Low39.0-50.0The [facility] Hospital DaytonComment on above:Order Comment: No: Do not add to previous drawPerformed By: #### 56600 #### [facility] [address] [place] [address], USAHemoglobin (Bld) [Mass/Vol]11.7 g/dLLow13.0-17.0The [facility] Hospital DaytonComment on above:Order Comment: No: Do not add to previous drawPerformed By: #### 32199 #### [facility] [address] [place] [address], USAIMMATURE GRANS1.3 %High0.0-1.0The [facility] Hospital DaytonComment on above:Order Comment: No: Do not add to previous draw Performed By: #### 65808 #### [facility] [address] [facility] [place] [address], USALymphocytes (Bld) [#/Vol]1.5 10*3/uLNormal1.2-4.0The [facility] DaytonComment on above:Order Comment: No: Do not add to previous drawPerformed By: #### 18227 #### [facility] [address] [place] [address], USALymphocytes/100 WBC (Bld)21.8 %Cbjuux88.0-45.0The [facility] Hospital DaytonComment on above:Order Comment: No: Do not add to previous drawPerformed By: #### 84497 #### [facility] [address] [place] [address], [facility] (RBC) [Entitic mass]29.5 nxNlcwkv41.0-33.0The [facility] Hospital DaytonComment on above:Order Comment: No: Do not add to previous drawPerformed By: #### 67804 #### [facility] [address] [place] [address], [facility] CENTERBMCHC (RBC) [Mass/Vol]31.4 g/dLLow32.0-35.0The [facility] DaytonComment on above:Order Comment: No: Do not add to previous drawPerformed By: #### 78169 #### [facility] [address] [place] [address], [facility] (RBC) [Entitic vol]94.0 yHTnnlnj22.0-98.0The [facility] Hospital DaytonComment on above:Order Comment: No: Do not add to previous drawPerformed By: #### 74541 #### [facility] [address] [place] [address], USAMonocytes (Bld) [#/Vol]0.6 10*3/uLNormal0.1-1.0The [facility] DaytonComment on above:Order Comment: No: Do not add to previous drawPerformed By: #### 81144 #### [facility] [address] [place] [address], USAMONOS8.2 %Normal5.0-12.0The [facility] Hospital DaytonComment on above:Order Comment: No: Do not add to previous drawPerformed By: #### 03803 #### [facility] [address] [place] [address], USANeutrophils/100 WBC (Bld)63.0 %Yghtyt16.0-72.0The [facility] Hospital DaytonComment on above:Order Comment: No: Do not add to previous drawPerformed By: #### 47821 #### [facility] [address] [place] [address], USANucleated RBC/100 WBC (Bld) [Ratio]0 %Normal0-0The [facility] Hospital DaytonComment on above:Order Comment: No: Do not add to previous drawPerformed By: #### 43212 #### [facility] [address] [place] [address], USAPLAT GSF747 10*3/qGVejgwy908-399Ktu [facility] DaytonComment on above:Order Comment: No: Do not add to previous draw Performed By: #### 34102 #### [facility] [address] [place] [address], USARBC (Bld) [#/Vol]3.97 10*6/uLLow4.20-5.70The [facility] Hospital DaytonComment on above:Order Comment: No: Do not add to previous drawPerformed By: #### 73218 #### [facility] [address] [place] [address], USAWBC (Bld) [#/Vol]6.69 10*3/uLNormal4.00-10.60The [facility] DaytonComment on above:Order Comment: No: Do not add to previous drawPerformed By: #### 22806 #### [facility] [address] [place] [address], USABASIC METABOLIC PANELon 68-51-0554Esjkqpd [Mass/Vol]9.7 mg/dLNormal8.6-10.3The [facility] DaytonComment on above:Order Comment: No: Do not add to previous drawPerformed By: #### 99947, 42727 #### [facility] [address] [place] [address], USAChloride [Moles/Vol]105 mmol/PCfpadg70-551Rni [facility] DaytonComment on above:Order Comment: No: Do not add to previous drawPerformed By: #### 54894, 54478 #### [facility] [address] [place] [address], USACO2 [Moles/Vol]25 mmol/CUectpd42-61Xik [facility] DaytonComment on above:Order Comment: No: Do not add to previous draw Performed By: #### 18331, 45699 #### [facility] [address] [place] [address], USACreatinine [Mass/Vol]2.13 mg/dLHigh0.70-1.30The [facility] DaytonComment on above:Order Comment: No: Do not add to previous drawPerformed By: #### 05521, 70059 #### [facility] [address] [place] [address], USAGFR/1.73 sq M predicted among blacks MDRD (S/P/Bld) [Vol rate/Area]38 ml/min/1.73sq mAbnormal>60The [facility] Comment on above:Order Comment: No: Do not add to previous drawPerformed By: #### 65079, 25407 #### [facility] [address] [place] [address], USAGFR/1.73 sq M predicted among non-blacks MDRD (S/P/Bld) [Vol rate/Area]31 ml/min/1.73sq mAbnormal>60The [facility] DaytonComment on above:Order Comment: No: Do not add to previous drawPerformed By: #### 89049, 78358 #### [facility] [address] [place] [address], USAGlucose [Mass/Vol]114 mg/sSYpmc67-066Jml [facility] DaytonComment on above:Order Comment: No: Do not add to previous drawPerformed By: #### [id number] #### [facility] [address] [place] [address], USAPotassium [Moles/Vol]4.7 mmol/LNormal3.5-5.1The [facility] DaytonComment on above:Order Comment: No: Do not add to previous drawPerformed By: #### [id number], [id number] #### [facility] [address] [place] [address], USASodium [Moles/Vol]140 mmol/ANwdmid724-850Hsq [facility] DaytonComment on above:Order Comment: No: Do not add to previous drawPerformed By: #### [id number], [id number] #### [facility] [address] [place] [address], USAUrea nitrogen [Mass/Vol]32 mg/dLHigh7-25The [facility] Hospital DaytonComment on above:Order Comment: No: Do not add to previous drawPerformed By: #### [id number], [id number] #### [facility] [address] [facility] [place] [address], [facility] CENTERBCBC W/DIFFon [id number] BASOPHILS0.1 10*3/uLNormal 0.0-0.2The [facility] Hospital DaytonComment on above:Performed By: #### [id number] #### [facility] [address] [facility] [place] [place] [address], USAABS IMM GRANS0.1 10*3/uLNormal0.0-0.2The [facility] Hospital DaytonComment on above:Performed By: #### [id number] #### [facility] [address] [facility] [place] [address], USAABS NEUTROPHILS6.2 10*3/uLNormal1.6-7.6The [facility] Hospital DaytonComment on above:Performed By: #### [id number] #### [facility] [address] [facility] [place] [address], USABasophils/100 WBC (Bld)0.7 %Normal0.0-1.0The [facility] Hospital DaytonComment on above:Performed By: #### [id number] #### [facility] [address] [place] [address], USAEosinophils (Bld) [#/Vol]0.3 10*3/uLNormal0.0-0.5The [facility] Hospital DaytonComment on above:Performed By: #### [id number] #### [facility] [address] [facility] [place] [address], USAEosinophils/100 WBC (Bld)4.0 %Normal0.0-6.0The [facility] Hospital DaytonComment on above:Performed By: #### [id number] #### [facility] [address] [facility] [place] [address], USAErythrocyte distribution width (RBC) [Ratio]14.4 %Normal 11.5-15.0The [facility] Hospital DaytonComment on above:Performed By: #### [id number] #### [facility] [address] [facility] [place] [address], USAHematocrit (Bld) [Volume fraction]39.3 %Ohazza63.0-50.0The [facility] Hospital DaytonComment on above:Performed By: #### 84051 #### [facility] [address] [facility] [place] [address], USAHemoglobin (Bld) [Mass/Vol]12.7 g/dLLow13.0-17.0The [facility] Hospital DaytonComment on above:Performed By: #### 17248 #### [facility] [address] [facility] [place] [address], USAIMMATURE GRANS0.8 %Normal0.0-1.0The [facility] Hospital DaytonComment on above:Performed By: #### 84114 #### [facility] [address] [facility] [place] [address], USALymphocytes (Bld) [#/Vol]1.4 10*3/uLNormal1.2-4.0The [facility] Hospital DaytonComment on above:Performed By: #### 25753 #### [facility] [address] [place] [id number], [facility] MEDICAL CENTERBLymphocytes/100 WBC (Bld)16.6 %Low20.0-45.0The [facility] Hospital DaytonComment on above:Performed By: #### [id number] #### [facility] [address] [facility] [place] [address], [facility] HUGOH (RBC) [Entitic mass]30.3 kzXnrixm97.0-33.0The [facility] Hospital DaytonComment on above:Performed By: #### [id number] #### [facility] [address] [facility] [place] [place] [address], [facility]ICAL CENTERBMCHC (RBC) [Mass/Vol]32.3 g/qKBnvdjt89.0-35.0The [facility] Hospital DaytonComment on above:Performed By: #### 96900 #### [facility] [address] [facility] [place] [id number], [facility] MEDICAL CENTERBMCV (RBC) [Entitic vol]93.8 nVRktmqo02.0-98.0The [facility] Hospital DaytonComment on above:Performed By: #### [id number] #### [facility] [address] [facility] [place] [place] [address], USAMonocytes (Bld) [#/Vol]0.4 10*3/uLNormal0.1-1.0The [facility] Hospital DaytonComment on above:Performed By: #### 77537 #### [facility] [address] [facility] [place] [place] [address], USAMONOS4.9 %Low5.0-12.0The [facility] Hospital DaytonComment on above:Performed By: #### 45888 #### [facility] [address] [facility] [place] [address], USANeutrophils/100 WBC (Bld)73.0 %High40.0-72.0The [facility] Hospital DaytonComment on above:Performed By: #### 52887 #### [facility] [address] [place] [address], USANucleated RBC/100 WBC (Bld) [Ratio]0 %Normal0-0The [facility] Hospital DaytonComment on above:Performed By: #### 21042 #### [facility] [address] [place] [address], USAPLAT EIB623 10*3/tQWoruhv488-791Vym Access Hospital DaytonComment on above:Performed By: #### 49755 #### [facility] [address] [place] [address], USARBC (Bld) [#/Vol]4.19 10*6/uLLow4.20-5.70The [facility] Hospital DaytonComment on above:Performed By: #### 55797 #### [facility] [address] [facility] [place] [address], USAWBC (Bld) [#/Vol]8.53 10*3/uLNormal4.00-10.60The [facility] Hospital DaytonComment on above:Performed By: #### 32035 #### [facility] [address] [place] [address], USACREATININE URINE RANDOMon 73-91-8514Cexzrcaihv [Mass/Vol] 62.0 mg/dLNoMercy Health Perrysburg HospitalComment on above:Order Comment: No: Do not add to previous drawResult Comment: There are no established reference values for random urine specimensPerformed By: #### 17957, 34659, 54900 #### [facility] [address] [place] [address], USALIVER BATTERYon 59-57-1947Sgtzehl [Mass/Vol]4.6 g/dLNormal 3.5-5.7The [facility] Hospital DaytonComment on above:Order Comment: Yes: Add to Previous draw if ablePerformed By: #### 62802, 01924 #### [facility] [address] [place] [address], USAALKALINE JCRYTL69 IU/SOpmkse11-826Awv [facility] Hospital DaytonComment on above:Order Comment: Yes: Add to Previous draw if able Performed By: #### [id number], 75118 #### [facility] [address] [place] [address], USAALT [Catalytic activity/Vol]26 U/LNormal7-52The [facility] Hospital DaytonComment on above:Order Comment: Yes: Add to Previous draw if ablePerformed By: #### 25043, 01662 #### [facility] [address] [place] [address], USAAST [Catalytic activity/Vol]25 U/LFyuakb46-27Ygf [facility] DaytonComment on above:Order Comment: Yes: Add to Previous draw if ablePerformed By: #### 24732, 33167 #### [facility] [address] [place] [address], USABilirubin [Mass/Vol]0.5 mg/dLNormal0.3-1.0The [facility] Hospital DaytonComment on above:Order Comment: Yes: Add to Previous draw if ablePerformed By: #### 23392, 67927 #### [facility] [address] [place] [address], USABilirubin.direct [Mass/Vol]0.1 mg/dLNormal0.0-0.2The [facility] Hospital DaytonComment on above:Order Comment: Yes: Add to Previous draw if ablePerformed By: #### 85899, 43627 #### [facility] [address] [place] [address], USAProtein [Mass/Vol]7.6 g/dLNormal6.0-8.3The [facility] Hospital DaytonComment on above:Order Comment: Yes: Add to Previous draw if ablePerformed By: #### 51022, 60988 #### [facility] [address] [place] [address], USASODIUM URINE RANDOMon 90-85-5488Dbcitc (U) [Moles/Vol]111 mmol/LNormalThe Access Hospital DaytonComment on above:Order Comment: No: Do not add to previous drawResult Comment: There are no established reference values for random urine specimensPerformed By: #### 99756, 03340, 04927 #### [facility] [address] [place] [address], USAUA,MICROSCOPIC REQUIREDon 78-64-3800Ymhoxvwzem (U)CLEAR NormalCLEARThe Access Hospital DaytonComment on above:Order Comment: No: Do not add to previous drawPerformed By: #### 97615 #### [facility] [address] [place] [address], USABilirubin [Mass/Vol]NegativeNormalNEGATIVEThe [facility] Hospital DaytonComment on above:Order Comment: No: Do not add to previous drawPerformed By: #### 34857 #### [facility] [address] [place] [address], USABLOODNegativeNormalNEGATIVEThe [facility] Hospital DaytonComment on above:Order Comment: No: Do not add to previous drawPerformed By: #### 30039 #### [facility] [address] [place] [address], USAColor (U)YELLOWNormalYELLOWThe Access Hospital DaytonComment on above:Order Comment: No: Do not add to previous drawPerformed By: #### 14426 #### [facility] [address] [place] [address], USAEPISOCCNormalFEW,OCC,NONE SEENThe Access Hospital DaytonComment on above:Order Comment: No: Do not add to previous draw Performed By: #### 05686 #### [facility] [address] [place] [address], USAGlucose [Mass/Vol]NegativeNormalNEGATIVEThe [facility] Hospital DaytonComment on above:Order Comment: No: Do not add to previous drawPerformed By: #### 00943 #### [facility] [address] [place] [address], USAHYALINE CASTS1 /LPFAbnormalNONE SEENThe [facility] Hospital DaytonComment on above:Order Comment: No: Do not add to previous drawPerformed By: #### 79787 #### [facility] [address] [place] [address], USAKETONENegativeNormalNEGATIVEThe [facility] Hospital DaytonComment on above:Order Comment: No: Do not add to previous draw Performed By: #### 78374 #### [facility] [address] [place] [address], USALEUK ESTERNegativeNormalNEGATIVEThe [facility] Hospital DaytonComment on above:Order Comment: No: Do not add to previous draw Performed By: #### 62954 #### [facility] [address] [place] [address], USANitrite Ql (U)NegativeNormalNEGATIVEThe [facility] Hospital DaytonComment on above:Order Comment: No: Do not add to previous drawPerformed By: #### 66980 #### [facility] [address] [place] [address], USApH (Bld)6.8Bfecfl7.0-8.0The [facility] DaytonComment on above:Order Comment: No: Do not add to previous drawPerformed By: #### 30524 #### [facility] [address] [place] [address], USAProtein [Mass/Vol]NegativeNormalNEGATIVEThe [facility] Hospital DaytonComment on above:Order Comment: No: Do not add to previous drawPerformed By: #### 62750 #### [facility] [address] [place] [address], USARBC (Bld) [#/Vol]0-2AbnormalNONE SEENThe [facility] Hospital DaytonComment on above:Order Comment: No: Do not add to previous drawPerformed By: #### 46793 #### [facility] [address] [place] [address], USASPEC GRAV1.646Qzz4.015-1.020The [facility] Hospital DaytonComment on above:Order Comment: No: Do not add to previous draw Performed By: #### 09214 #### [facility] [address] [facility] [place] [address], USAWBC UA0-2AbnormalNONE SEENThe [facility] Hospital DaytonComment on above:Order Comment: No: Do not add to previous drawPerformed By: #### 30894 #### [facility] [address] [facility] [place] [address], USAUREA NITROGEN URon 40-25-9135Mcjm nitrogen [Mass/Vol]566 mg/dLNormalThe [facility] Hospital DaytonComment on above:Order Comment: No: Do not add to previous drawResult Comment: There are no established reference values for random urine specimensPerformed By: #### 76658, 28966, 57602 #### [facility] [address] [facility] [place] [address], USAUS RENALon 32-49-4314ME RENALUnElyria Memorial Hospital Department of Radiology [address] [place] [address] Patient Name: KEL CASTILLO : 1955 Sex: M Age: Race: White Pt. Location: [id number] Patient Status: I Ordered Date: 10/05/2019 10:45:00 [...] hydronephrosis. Electronically signed: Madison Castellanos. Transcribed by: [email or web address], User Resident: Electronically Signed by: MADISON CASTELLANOS @ 10/05/2019 03:41 PMNSt. Charles HospitalComment on above:Order Comment: Hydronephrosis Vital Signs Date TimeVital SignValuePerforming EtnswsbuwGgzyforo12-83-6655 14:14-0400Body gijowd879.6 cmDainez Gant MD Work Phone: [facility]08-21-2025 14:14-0400Body mass index (BMI) [Ratio]26.63 kg/y1UinsjBill Gant MD Work Phone: [facility]08-21-2025 14:140400Body lezwhr22.84 kgDainez Gant MD Work Phone: [facility]08-21-2025 14:14-0400Diastolic blood mm[Hg]Bill Gant MD Work Phone: [facility]08-21-2025 14:14-0400Heart rate59 /min Bill Gant MD Work Phone: [facility]08-21-2025 14:14-7978CmS7% (BldA) [Mass fraction]99 %Bill Gant MD Work Phone: [facility]08-21-2025 14:14-0400Systolic blood yacsytve412 mm[Hg]Bill Gant MD Work Phone: [facility]07-30-2025 09:53-0400Body yzxwoj894.1 cmMegan Verhoff PA-C Work Phone: [facility] [employer] Thehvj76-24-3102 09:53-0400Body mass index (BMI) [Ratio]27.12 kg/g9Uhqin Verhoff PA-C Work Phone: [facility] [employer] Izcjmv05-30-3616 09:53-0400Body zinrkg24.94 kgMegan Verhoff PA-C Work Phone: [facility] [employer] Sgetxz77-30-5956 09:53-0400Diastolic blood bojlvvjy79 mm[Hg]Darrick Verhoff PA-C Work Phone: [facility]07-30-2025 09:53-0400Heart rate 51 /minMegan Verhoff PA-C Work Phone: [facility] [employer] Heqgfk58-50-4032 09:53-0400 Respiratory rate18 /minMegan Verhoff PA-C Work Phone: [facility] [employer] Rbwoyz82-56-2158 09:53-8841EaZ8% (BldA) [Mass fraction]100 %Darrick Verhoff PA-C Work Phone: [facility]07-30-2025 09:53-0400Systolic blood lfsmgkab352 mm[Hg]Darrick Verhoff PA-C Work Phone: [facility]07-21-2025 13:45-0400Body mass index (BMI) [Ratio]25.33 kg/m2Noa Watson RESIST COATER DEVELOPER Work Phone: [facility] CenterGabtqsjlsq03-52-7133 13:45-0400Body temperature 97.3 [degF]Noa Manzoobi RESIST COATER DEVELOPER Work Phone: [facility] CenterQkedvuazme65-35-7346 13:45-0400Body onuavp40.57 kgLisa Simmonsadriano RESIST COATER DEVELOPER Work Phone: [facility] CenterWvljqwfmoe55-74-1879 13:45-0400Diastolic blood oprgoslf75 mm[Hg]Noa Manzoobi RESIST COATER DEVELOPER Work Phone: [facility] CenterPsgeerejck15-38-0276 13:45-0400Heart rate54 /min Noa Watson RESIST COATER DEVELOPER Work Phone: [facility] CenterNvxhtpwqpa25-67-5744 13:45-0400Respiratory rate18 /minLisa Watson RESIST COATER DEVELOPER Work Phone: [facility] CenterCchniucdhi45-01-3346 13:45-1900KpD1% (BldA) [Mass fraction]97 %Noa Manzoz RESIST COATER DEVELOPER Work Phone: [facility] CenterBkqdrrbxxv26-01-0990 13:45-0400Systolic blood promrcfo050 mm[Hg]Noa Manzoz RESIST COATER DEVELOPER Work Phone: [facility] CenterEwoktftnpk50-02-5646 10:22-0400Body qbaxkd841.6 cmMegan Verhoff PA-C Work Phone: [facility]06-18-2025 10:22-0400Body mass index (BMI) [Ratio]26.79 kg/z6Pqlsh Verhoff PA-C Work Phone: [facility]06-18-2025 10:22-0400Body mmnnfe76.3 kgMegan Verhoff PA-C Work Phone: [facility] [employer] Grobua58-15-7504 10:22-0400Diastolic blood jgtabmiu71 mm[Hg]Darrick Verhoff PA-C Work Phone: [facility] [employer] Dgnbxp03-02-0998 10:22-0400Heart rate 57 /minMegan Verhoff PA-C Work Phone: [facility]06-18-2025 10:22-0400 Respiratory rate20 /minMegan Verhoff PA-C Work Phone: [facility] [employer] Vzkxen46-55-2481 10:22-0400Systolic blood owvvxkvy508 mm[Hg]Darrick Verhoff PA-C Work Phone: [facility]06-10-2025 16:26-0400Body wnijgv518.1 cm[facility]06-10-2025 16:26-0400Body mass index (BMI) [Ratio]27.8 kg/e8WpintycpgSelect Medical Specialty [facility]06-10-2025 16:26-0400Body wabjfs18.74 kgSelect [facility]06-10-2025 16:26-0400Diastolic blood bvfcizxr41 mm[Hg][facility] 01-19-2025 16:26-0400Heart rate64 /[facility] 01-19-2025 16:26-0400Respiratory rate16 /[facility] 01-19-2025 16:26-9761DwS0% (BldA) [Mass fraction]96 %[facility]06-10-2025 16:26-0400Systolic blood nesunagv619 mm[Hg][facility]06-10-2025 13:06-0400Body mass index (BMI) [Ratio]25.21 kg/m2Noa Watson RESIST COATER DEVELOPER Work Phone: [facility] HoldingsGold[facility] HospitalWvcnnnhcuc20-61-4677 13:06-0400Body temperature 98.49 [degF]Noa Watson RESIST COATER DEVELOPER Work Phone: [phone] [place], [place] [address]Sfrfzwmzas68-17-7402 13:06-0400Body .21 kgLisa Rigobertohholz RESIST COATER DEVELOPER Work Phone: [facility] CenterYiwlncnrxf92-73-4127 13:06-0400Diastolic blood farozhec21 mm[Hg]Noa Aichholz RESIST COATER DEVELOPER Work Phone: [facility] CenterTdwpjzkedh93-72-5354 13:06-0400Heart rate66 /min Noa Aichholz RESIST COATER DEVELOPER Work Phone: [facility] CenterHbcymcanwm26-19-9743 13:06-0400Respiratory rate18 /minLisa Aichholz RESIST COATER DEVELOPER Work Phone: [facility] CenterIatizdcoxv08-91-3545 13:06-8490SiV2% (BldA) [Mass fraction]96 %Noa Aichholz RESIST COATER DEVELOPER Work Phone: [facility] CenterYeplgvkdxp67-28-5056 13:06-0400Systolic blood lhhlaxdv807 mm[Hg]Noa Aichholz RESIST COATER DEVELOPER Work Phone: [facility] CenterXppgzfffem56-93-0072 13:03-0400Body mass index (BMI) [Ratio]25.21 kg/m2Lisa Aichholz RESIST COATER DEVELOPER Work Phone: [facility] CenterVruhjfnqhc88-93-2169 13:03-0400Body temperature 98.71 [degF]Noa Rigobertohholz RESIST COATER DEVELOPER Work Phone: [facility] CenterCtsujmbdqo30-81-0092 13:03-0400Body egrldj93.21 kgLisa Aichholz RESIST COATER DEVELOPER Work Phone: [place] [address]Nnhdzeuayx26-53-1556 13:03-0400Diastolic blood idppxmdv84 mm[Hg]Noa Aichholz RESIST COATER DEVELOPER Work Phone: [place] [address]Waorizigoc32-41-9263 13:03-0400Heart rate67 /min Noa Aichholz RESIST COATER DEVELOPER Work Phone: [place] [address]Uxwsguaflq95-71-4360 13:03-0400Respiratory rate18 /minLisa Aichholz RESIST COATER DEVELOPER Work Phone: [facility] CenterHqcuswmamj72-51-8850 13:03-1172MzG9% (BldA) [Mass fraction]96 %Noa Shirley RESIST COATER DEVELOPER Work Phone: [facility] CenterBkuavewmlo89-42-3061 13:03-0400Systolic blood dgmkdyml715 mm[Hg]Noa Simmonsadriano RESIST COATER DEVELOPER Work Phone: [facility] CenterCjcrlxzpdq66-10-4031 15:59-0400Body .1 cmSelect [facility]03-18-2025 15:59-0400Body mass index (BMI) [Ratio]27.8 kg/p2NqybcpgcaSelect Medical Specialty [facility]03-18-2025 15:59-0400Body .8 kgSelect [facility]03-18-2025 15:59-0400Diastolic blood mm[Hg][facility]03-18-2025 15:59-0400 Heart rate56 /[facility]03-18-2025 15:59-0400 Respiratory rate16 /[facility]03-18-2025 15:59-0400 SaO2% (BldA) [Mass fraction]95 %[facility]03-18-2025 15:59-0400Systolic blood abzjlzuj937 mm[Hg][facility] 10-12-2024 11:22-0500Body .1 cmAmanda Mandeep Latasha DO Work Phone: [facility]03-03-2025 11:22-0500Body mass index (BMI) [Ratio]28.29 kg/y9Cnjbaz Mandeep Latasha DO Work Phone: [facility]03-03-2025 11:22-0500Body dgpinj38.1 kgAmanda Mandeep Latasha DO Work Phone: [facility]03-03-2025 11:22-0500Diastolic blood mm[Hg]Eun Mandeep Latasha DO Work Phone: [facility]03-03-2025 11:22-0500Heart rate58 /min Eun Mandeep Latasha DO Work Phone: [facility]03-03-2025 11:22-0500Systolic blood dblxeaxd253 mm[Hg]Eun Black DO Work Phone: [facility]02-27-2025 13:45-0500Body mass index (BMI) [Ratio]25.82 kg/m2Noa Watson RESIST COATER DEVELOPER Work Phone: [facility] CenterMkzizhdhhv44-69-5818 13:45-0500Body temperature 98.1 [degF]Noa Shirley RESIST COATER DEVELOPER Work Phone: [facility] CenterTuppstrtvm07-58-4571 13:45-0500Body tdivco86.02 kgNelly Shirley RESIST COATER DEVELOPER Work Phone: [facility] CenterUtbeqqihhv26-97-6851 13:45-0500Diastolic blood mm[Hg]Noa Shirley RESIST COATER DEVELOPER Work Phone: [facility] CenterKuuxtszdzg88-04-2952 13:45-0500Heart rate51 /min Noa Shirley RESIST COATER DEVELOPER Work Phone: [facility] CenterNrtixzevdj60-01-8472 13:45-0500Respiratory rate18 /minLi Rigobertorandolphadriano RESIST COATER DEVELOPER Work Phone: [facility] CenterQulxfodnyl61-64-5809 13:45-4518ZzU6% (BldA) [Mass fraction]97 %Noa Shirley RESIST COATER DEVELOPER Work Phone: [facility] CenterGldwilvuqs14-18-3022 13:45-0500Systolic blood mm[Hg]Noa Shirley RESIST COATER DEVELOPER Work Phone: [facility] CenterKkjpyrmgps45-35-4834 13:13-0500Body wjwygd771.7 cmBrharmeet Coronado RESIST COATER DEVELOPER Work Phone: [facility] CenterRazqqadoxd96-19-3830 13:13-0500Body mass index (BMI) [Ratio]27.55 kg/h5JcuqhpohJayy Pollocktrick RESIST COATER DEVELOPER Work Phone: [facility] CenterJavipndnvr34-52-4279 13:13-0500Body temperature 96.6 [degF]Jayy Pollocktrick RESIST COATER DEVELOPER Work Phone: [facility] CenterPbmkpolrdk84-13-9756 13:13050Body phnaws40.19 kgJayy Padillapatrick RESIST COATER DEVELOPER Work Phone: [facility] CenterObfzewgsdf67-45-0031 13:13-0500Diastolic blood pggyjpqw28 mm[Hg]Jayy Padillapatrick RESIST COATER DEVELOPER Work Phone: [place] [address]Ntiehrbilv58-75-2954 13:13-0500Heart rate57 /min Jayy Pollocktrick RESIST COATER DEVELOPER Work Phone: [facility] CenterIufzqspuzn36-98-3313 13:130500Respiratory rate16 /minJayy Padillapatrick RESIST COATER DEVELOPER Work Phone: [place] [address]Pydotcdsyy48-80-2074 13:139470PoD9% (BldA) [Mass fraction]94 %Jayy Padillapatrick RESIST COATER DEVELOPER Work Phone: [facility] CenterKqwuwueata15-37-5957 13:13050Systolic blood vnsbijcg787 mm[Hg]Jayy Pollocktrick RESIST COATER DEVELOPER Work Phone: [facility] CenterRuhfflwnsk45-34-4650 09:36-0400Body .6 cmAmanda Mandeep Davilaon DO Work Phone: [facility]09-23-2024 09:36-0400Body mass index (BMI) [Ratio]28.64 kg/n2Liqcgs Mandeep Latasha DO Work Phone: [facility]09-23-2024 09:36-0400Body .5 kgAmanchevy Mandeep Latasha DO Work Phone: [place] [address]-23-2024 09:36-0400Diastolic blood mm[Hg]Eun Mandeep Latasha DO Work Phone: [place] [address]-23-2024 09:36-0400Heart rate57 /min Eun Black DO Work Phone: [facility]09-23-2024 09:36-0400Systolic blood mwaymiqx600 mm[Hg]Eun Black DO Work Phone: [facility]08-20-2024 13:00-0400Body eobwlv576.64 cm[facility]08-20-2024 13:00-0400Body mass index (BMI) [Ratio]29.4 kg/r8JdoofivwdSelect Medical Specialty [facility]08-20-2024 13:00-0400Body punpstdjyne40 [degF][facility]08-20-2024 13:00-0400Body utepnz32.72 kgSelect [facility]08-20-2024 13:00-0400Diastolic blood mm[Hg][facility]08-20-2024 13:00-0400 Heart rate58 /[facility]08-20-2024 13:00-0400 Respiratory rate18 /[facility]08-20-2024 13:00-0400 SaO2% (BldA) [Mass fraction]97 %[facility]08-20-2024 13:00-0400Systolic blood mm[Hg][facility] 09-19-2023 13:53-0500Body .7 Waldemar Grimes MD Work Phone: [facility] CenterBibezwbkwg44-12-2553 13:53-0500Body mass index (BMI) [Ratio]28.43 kg/z3AbssxcShaikh Cornelio LEMON Work Phone: [facility] [id number] 13:53-0500Body temperature 97.5 [degF]Shaikh Cornelio LEMON Work Phone: [facility] CenterKaaftiubrr18-28-0418 13:53-0500Body sjbdou78.82 kgShaikh Cornelio LEMON Work Phone: [facility] [id number] 13:53-0500Diastolic blood coeugbkm71 mm[Hg]Shaikh Cornelio LEMON Work Phone: [id number] 13:53-0500Heart rate59 /min Shaikh Cornelio LEMON Work Phone: noStat [id number] 13:53-5408ZsG2% (BldA) [Mass fraction]95 %Shaikh Cornelio LEMON Work Phone: noStat DoctorsTyrqhplnbj06-89-9170 13:53-0500Systolic blood dgsoyikf530 mm[Hg]Shaikh Cornelio LEMON Work Phone: [phone] 10:00-0400Body lggzpy593.64 cmAalisonobi Toscano Other [employer] Other 06-16-2023 10:00-0400Body mass index (BMI) [Ratio] 31.57 kg/m2Hanna Mando Other [employer] Other 06-16-2023 10:00-0400Body asyltsvgbdv82.2 [degF]Hanna Ortizcatarina Other [employer] Other 06-16-2023 10:00-0400Body iwfdnp36.72 kgHanna Wesholden Other [employer] Other 06-16-2023 10:00-0400Diastolic blood phjxyczp08 mm[Hg] Hanna Wesholden Other [employer] Other 06-16-2023 10:00-0400Respiratory rate20 /minHanna Mando Other [employer] Other 06-16-2023 10:00-2901UjX0% (BldA) [Mass fraction]98 % Hanna Toscano Other [facility] [employer] Other [id number] 10:00-0400Systolic blood mm[Hg] Hanna Toscano Other [place] [employer] Other 195772-89-1327 15:40-0500Body jmkxyp222.6 cmAmanda Mandeep DO Work Phone: [facility]01-04-2023 15:40-0500Body .81 kgAmanda Mandeep DO Work Phone: [facility]01-04-2023 15:40-0500Diastolic blood acgecman25 mm[Hg]Eun Mandeep DO Work Phone: [facility]01-04-2023 15:40-0500Heart rate61 /min Eun Mandeep DO Work Phone: [facility]01-04-2023 15:40-8255JkW7% (BldA) [Mass fraction]100 %Eun Mandeep DO Work Phone: [facility]01-04-2023 15:40-0500Systolic blood mm[Hg]Eun Mandeep DO Work Phone: [facility]11-29-2022 14:40-0500Body vmehyp713.64 Jean Paul Mando Other [facility] [employer] Other 11-29-2022 14:40-0500Body mass index (BMI) [Ratio] 31.95 kg/m2Hanna Wesholden Other [place] [employer] Other 11-29-2022 14:40-0500Body qrcnxo32.81 kgHanna Mando Other [place] [employer] Other 11-29-2022 14:40-0500Diastolic blood mm[Hg] Hanna Toscano Other [employer] Other 11-29-2022 14:40-2706XuN2% (BldA) [Mass fraction]95 % Hanna Toscano Other [employer] Other 11-29-2022 14:40-0500Systolic blood qtbikiff024 mm[Hg] Hanna Toscano Other [employer] Other 10-25-2022 16:30-0400Body tmthef050.64 [facility] Other [employer] Other 10-25-2022 16:30-0400Body mass index (BMI) [Ratio] 32.12 kg/m0Eeubq [facility] Other [employer] Other 10-25-2022 16:30-0400Body xxoxmkieolv07.5 [degF][facility] Other [employer] Other 10-25-2022 16:30-0400Body cjciry27.27 [facility] Other [employer] Other 10-25-2022 16:30-0400Diastolic blood rgbnasxm00 mm[Hg] [facility] Other [employer] Other 10-25-2022 16:30-0400Respiratory rate20 /minSelect Specialty Hospital [facility]ieariz[facility] Other [employer] Other 10-25-2022 16:30-4214LnN8% (BldA) [Mass fraction]96 % Corona Monroe Other [employer] Other 10-25-2022 16:30-0400Systolic blood agbyrfib693 mm[Hg] Corona Monroe Other [employer] Other 08-30-2022 09:44-0400Body szaode015.1 cmAmanda Mandeep DO Work Phone: [facility]08-30-2022 09:44-0400Body .68 kgAmanchevy Mandeep DO Work Phone: [facility]08-30-2022 09:44-0400Diastolic blood luceqzfw45 mm[Hg]Eunsotero Mccrayok DO Work Phone: [facility]08-30-2022 09:44-0400Heart rate57 /min Eunsotero Mccrayok DO Work Phone: [facility]08-30-2022 09:44-0400Systolic blood ovcogejp765 mm[Hg]Eun Kaufman DO Work Phone: [facility]07-19-2022 15:30-0400Body djakif962.64 cmCorona Monroe Other [employer] Other 07-19-2022 15:30-0400Body mass index (BMI) [Ratio] 31.95 kg/l6JaognCorona Monroe Other [employer] Other 07-19-2022 15:30-0400Body giujflkxobq10.9 [degF]Corona Monroe Other [employer] Other 07-19-2022 15:30-0400Body tqerut34.81 kgCorona Casesoila Other [employer] Other 07-19-2022 15:30-0400Diastolic blood utoxdzlk22 mm[Hg] Corona Monroe Other [employer] Other 07-19-2022 15:30-0400Respiratory rate20 /minCorona Monroe Other [employer] Other 07-19-2022 15:30-8958IbP3% (BldA) [Mass fraction]97 % Corona Monroe Other [employer] Other 07-19-2022 15:30-0400Systolic blood lveolsoc766 mm[Hg] Corona Monroe Other [employer] Other 06-20-2022 12:00-0400Body exexkm412.64 cmLuis Fernandotiburcio Suazo Other [employer] Other 06-20-2022 12:00-0400Body mass index (BMI) [Ratio] 32.84 kg/u0EnkydCristo Suazo Other [employer] Other 06-20-2022 12:00-0400Body erbvbc63.31 kgCristo Lambahan Other [employer] Other 06-20-2022 12:00-0400Diastolic blood filyggkl47 mm[Hg] Cristo Suazo Other [employer] Other 06-20-2022 12:00-0400Respiratory rate18 /minCristo Lambahan Other [employer] Other 06-20-2022 12:00-5461WsY7% (BldA) [Mass fraction]98 % Cristo Suazo Other [employer] Other 06-20-2022 12:00-0400Systolic blood krrlkdob232 mm[Hg] Cristo Suazo Other [employer] Other 05-17-2022 17:00-0400Body .64 cmCristo Suazo Other [employer] Other 05-17-2022 17:00-0400Body mass index (BMI) [Ratio] 31.15 kg/w1VfxwtCristo Suazo Other [employer] Other 05-17-2022 17:00-0400Body vrhoot72.54 kgCristo Suazo Other [employer] Other 05-17-2022 17:00-0400Diastolic blood qmqxhodz72 mm[Hg] Cristo Suazo Other [employer] Other 05-17-2022 17:00-0400Respiratory rate18 /minCristo Suazo Other [employer] Other 05-17-2022 17:00-9244ZoQ1% (BldA) [Mass fraction]95 % Cristo Suazo Other [employer] Other 05-17-2022 17:00-0400Systolic blood zzcmnayy680 mm[Hg] Cristo Suazo Other [employer] Other 05-13-2022 08:25-0400Body zogqbo404.1 Justin Bright MD Work Phone: [place] [address]-13-2022 08:25-0400Body viyfis48.68 kgJessie Bright MD Work Phone: c[facility] HospitalGkxvhh58-93-2775 08:25-0400Diastolic blood runeeqfj99 mm[Hg]Jessie Bright MD Work Phone: cSt. [facility] HospitalJwedvt38-86-4027 08:25-0400Heart rate59 /min Jessie Bright MD Work Phone: cSt. [facility] HospitalIzfmzv66-33-4470 08:25-0400Systolic blood dvziwexp245 mm[Hg]Jessie Bright MD Work Phone: cSt. [facility] HospitalFfnmee24-67-1438 15:40-0400Body coombd232.64 cmEricky Triana Other [employer] Other 10-12-2021 15:40-0400Body mass index (BMI) [Ratio] 30.84 kg/v6OasbrReuben Triana Other [employer] Other 10-12-2021 15:40-0400Body lvvrirkopyv41.3 [degF]Reuben Triana Other [employer] Other 10-12-2021 15:40-0400Body jfwnym48.68 kgReuben Triana Other [employer] Other 10-12-2021 15:40-0400Diastolic blood fapgyldz33 mm[Hg] Reuben Triana Other [employer] Other 10-12-2021 15:40-0400Respiratory rate18 /minEricky Triana Other [employer] Other 10-12-2021 15:40-9199XkJ0% (BldA) [Mass fraction]94 % Reuben Triana Other [facility] [employer] Other 058755-30-8093 15:40-0400Systolic blood acakfmwx002 mm[Hg] Reuben Triana Other [facility] [employer] Other Encounters Encounter DateEncounter TypeCare ProviderFacilityStart: 89-06-4482Nyqvtlugs department patient visitBELMarietta Osteopathic Clinictart: 06-15-2025 End: 49-26-1202Xexdhjuzgs and management of inpatientMUNIER NAZZALUniversCleveland Clinic Marymount Hospitaltart: 66-00-2583ixqtenlzgoAWLXUWSThe Christ Hospitaltart: 06-12-2025 End: 99-11-1156Eshnuaody department patient visitNAEL [facility] Hospitaltart: 64-53-1997Xizsxwxrku and management of inpatientKELLILYN RUSniversCleveland Clinic Marymount Hospitaltart: 82-12-6904Ilwqgqsee for other preprocedural examinationMUNIER NASelect Medical Specialty Hospital - Cantontart: 06-07-2025 End: 18-26-8482Ejivkxlye for other preprocedural examinationMUNIER [facility] Centertart: 06-07-2025 End: 11-98-6905Bafhzbzktg and management of inpatientMUNIER NAZZALUniversCleveland Clinic Marymount Hospitaltart: 60-20-4415aeijkkfljkAJLUJCQMercy Health Anderson Hospitaltart: 17-54-3504quxauycpdmAKCPTXAMercy Health Anderson Hospitaltart: 05-26-2025 End: 72-17-8878iulbbvtmneLXRYY ALASelect Medical [facility]Health Rehabilitation Hospitaltart: 14-86-5135wbugheudnnVIKBFKTMercy Health Anderson Hospitaltart: 05-24-2025 End: 95-01-5801jymqnivlxcOZWJLVPSelect Medical [facility]ty [facility] [place] Start: 05-11-2025 End: 61-37-8013qsioqewdyzKJWUMcCullough-Hyde Memorial Hospitaltart: 04-29-2025 End: 29-74-0418itxsblrlfjMZEJQR MOOK ROLONFacility:[facility] Start: 04-21-2025 End: 18-55-8424ebzozmvfslPHBHFSSumma Health Barberton Campustart: 04-15-2025 End: 98-66-9121tqypvtwyyqHHQWTCSumma Health Barberton Campustart: 04-08-2025 End: 35-53-2400vzzujyrgzgKCTCMcCullough-Hyde Memorial Hospitaltart: 04-05-2025 End: 09-10-3786Fnyhqvlfe encounterDainez Gant MD Work Phone: ppg Cardiology [place]ronComment on above:Fur Machine Operator - OtherStart: 04-05-2025 End: 57-90-3751delcdkpkhbEQQBO A CUTLERTriHealth McCullough-Hyde Memorial Hospitaltart: 04-02-2025 End: 71-60-4572Lhnkan-up encounterDainez Gant MD Work Phone: ppg Cardiology [place]ronComment on above:ResultsStart: 04-01-2025 End: 69-68-1894kpotnrnthnADHNG A CUTLERFacility:[place] GeneralStart: 04-01-2025 End: 58-28-4747Ruirwus encounter procedureBill Gant MD Work Phone: ppg Cardiology AkronComment on above:Coronary artery disease involving buckland coronary artery 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 pectoris (Primary Dx); Hx of CABG; Primary hypertension; Mixed hyperlipidemia; CRI (chronic renal insufficiency), stage 4 (severe) (HCC); PAD (peripheral artery disease); Other emphysema (HCC); Non-rheumatic mitral regurgitation; ROMAN (dyspnea on exertion); MCI (mild cognitive impairment)Start: 04-01-2025 End: 73-61-3235vnxidetxahDOAIU A CUTLERFacility:[place] GeneralStart: 04-01-2025 End: 06-00-7627Wdyeqvqwh Result EncounterGeneric External Data ProviderNOMS External Department UnsolicitedStart: 04-01-2025 End: 84-75-9852Zeotsjuro Result EncounterGeneric External Data ProviderNOMS External Department UnsolicitedStart: 04-01-2025 End: 89-61-3927cxtcxubporGKXCXAdventist Health Tulare HospitalStart: 03-11-2025 End: 07-18-8362Iajaxrjkg Result EncounterGeneric External Data ProviderNOMS External Department UnsolicitedStart: 03-11-2025 End: 70-25-7720Zgklibqol Result EncounterGeneric External Data ProviderNOMS External Department UnsolicitedStart: 03-10-2025 End: 49-21-3736Egdzbk outpatient visit 25 minutesDarrick Cannon PA-C Work Phone: [facility] ClinicComment on above:Cervical spondylosis (Primary Dx)Start: 03-10-2025 End: 44-75-2545njxclakaqhTERNZAdventist Health Tulare HospitalStart: 03-01-2025 End: 99-85-1226Nbygbh flowsheetNellysa Anaisz RESIST COATER DEVELOPER Work Phone: noMS CWM FMStart: 03-01-2025 End: 77-28-0193Uifekm flowsheetLisa Aichholz RESIST COATER DEVELOPER Work Phone: noMS CWM FMStart: 03-01-2025 End: 34-27-8669yagxiklmzxIKCS AICHHOLDAVONot AvailableStart: 03-01-2025 End: 11-55-0870Xmalko outpatient visit 25 minutesLisa Shirley RESIST COATER DEVELOPER Work Phone: noms CW FMComment on above:Cervical spondylosis (Primary Dx); Chronic diastolic heart failure (HCC); Primary hypertension ; Coronary artery disease involving buckland coronary artery 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 pectoris ; Chronic kidney disease, stage 4 (severe) (HCC); Pulmonary hypertension (HCC); EDITH (generalized anxiety disorder) ; Other hyperlipidemia ; Neck pain; Recurrent major depression in partial remission ; Gastroesophageal reflux disease without esophagitis; Chronic obstructive pulmonary disease, unspecified COPD type (HCC)Start: 02-19-2025 End: 88-11-4598Oimsuosqi Result EncounterGeneric External Data ProviderNOMS External Department UnsolicitedStart: 02-19-2025 End: 28-32-0092Nnfvqfcpg Result EncounterGeneric External Data ProviderNOMS External Department UnsolicitedStart: 02-19-2025 End: 05-88-9082dzgefoqvtaMIDCRDR Yeimy [facility]ILL[facility]ATERMIRTHAGeorgetown Behavioral Hospital HospitalStart: 02-18-2025 End: 11-76-9516Xrwqbdgmz Result EncounterGeneric External Data ProviderNOMS External Department UnsolicitedStart: 02-18-2025 End: 61-63-4624Vhozkxksg Result EncounterGeneric External Data ProviderNOMS External Department UnsolicitedStart: 01-27-2025 End: 85-51-5339Uptlre outpatient new 45 minutesDarrick Cannon PA-C Work Phone: [facility] ClinicComment on above:Cervical spondylosis (Primary Dx)Start: 01-27-2025 End: 52-18-1974jxqzjfjupwQRJID N VERHOFFGeorgetown Behavioral Hospital HospitalStart: 01-19-2025 End: 63-02-4752Fdlogln encounter procedureFirsthealth Physician Group-[facility] Nephrology Adilson Work Phone: Start: 01-19-2025 End: 29-09-3959Misihm flowsHemant Watson RESIST COATER DEVELOPER Work Phone: noms CWM FMStart: 01-19-2025 End: 88-78-9964Venyjg flowsheetNoa Watson RESIST COATER DEVELOPER Work Phone: noms CWM FMStart: 01-19-2025 End: 65-11-8688rlerdwszfiWOIP AICHHOLZBlanchard Valley Health System Work Phone: Start: 01-19-2025 End: 65-04-9203Wrepgd outpatient visit 25 minutesLisa Watson RESIST COATER DEVELOPER Work Phone: noms CWM FMComment on above:Cervical spondylosis (Primary Dx); Neck pain; Primary hypertension (CMS/HCC); Chronic kidney disease, stage 4 (severe) (CMS/HCC); EDITH (generalized anxiety disorder) (CMS/HCC); H/O: lung cancer; MCI (mild cognitive impairment)Start: 47-08-7675psgxavjtauVOGNMunson Healthcare Manistee Hospitaltart: 98-52-9176wjkagfhpfaAFHQMunson Healthcare Manistee Hospitaltart: 01-11-2025 End: 48-76-9551sejkdpzjlmDJEA Xavi WATSONKettering Health Hamiltonca [facility] [place] Campustart: 01-07-2025 End: 31-96-1490Zmyoiy OnlyNoa Watson RESIST COATER DEVELOPER Work Phone: noms CWM FMComment on above:Neck pain (Primary Dx) Start: 12-24-2024 End: 60-11-1261AmjzauAugj Aichholz RESIST COATER DEVELOPER Work Phone: noms CWM FMComment on above:Primary hypertension (CMS/HCC); Other hyperlipidemia; Neck pain; Recurrent major depression in partial remission (HCC) (CMS/HCC); Coronary artery disease involving buckland coronary artery 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 pectoris (CMS/HCC); Gastroesophageal reflux disease without esophagitis; Chronic obstructive pulmonary disease, unspecified COPD type (CMS/HCC); EDITH (generalized anxiety disorder) (CMS/HCC)Start: 12-07-2024 End: 93-26-5272LctxgbZniu Aichholz RESIST COATER DEVELOPER Work Phone: noms CWM FMComment on above:Other hyperlipidemia; Coronary artery disease involving buckland coronary artery 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 pectoris (CMS/HCC); Primary hypertension (CMS/HCC); Recurrent major depression in partial remission (HCC) (CMS/HCC); EDITH (generalized anxiety disorder) (CMS/HCC)Start: 12-01-2024 End: 46-81-0579FoeuciFopx Aichholz RESIST COATER DEVELOPER Work Phone: noms CWM FMComment on above:EDITH (generalized anxiety disorder) (CMS/HCC) (Primary Dx)Start: 11-19-2024 End: 48-46-9602Uiyxcz flowsheetLisa Simmonsholz RESIST COATER DEVELOPER Work Phone: NOMS CWM FMStart: 11-19-2024 End: 34-02-1263Oaywvc flowsheetLisa Aichholz RESIST COATER DEVELOPER Work Phone: noms CWM FMStart: 11-19-2024 End: 85-53-8631Ivwsda outpatient visit 25 minutesLisa Irisholz RESIST COATER DEVELOPER Work Phone: NOMS CWM FMComment on above:Neck pain (Primary Dx); Primary hypertension (CMS/HCC); Chronic kidney disease, stage 4 (severe) (CMS/HCC); EDITH (generalized anxiety disorder) (CMS/HCC); Functional gait abnormality; MCI (mild cognitive impairment)Start: 11-19-2024 End: 31-82-6026lwbvfwmqtzIUPS JULIANAot AvailableStart: 11-13-2024 End: 26-01-4811EzlqvlBumc Aichholz RESIST COATER DEVELOPER Work Phone: noMS CWM FMComment on above:Primary hypertension (CMS/HCC); Other hyperlipidemia; Recurrent major depression in partial remission (HCC) (CMS/HCC); Coronary artery disease involving buckland coronary artery 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 pectoris (CMS/HCC); Gastroesophageal reflux disease without esophagitis; EDITH (generalized anxiety disorder) (CMS/HCC)Start: 11-12-2024 End: 97-96-7754FpxzztYadn Rigobertohholz RESIST COATER DEVELOPER Work Phone: NOMS CWM FMComment on above:Primary hypertension (CMS/HCC); Other hyperlipidemia; Recurrent major depression in partial remission (HCC) (CMS/HCC); Coronary artery disease involving buckland coronary artery 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 pectoris (CMS/HCC); Gastroesophageal reflux disease without esophagitis; EDITH (generalized anxiety disorder) (CMS/HCC)Start: 11-09-2024 End: 83-45-3855MpvxafUkah Aichholz RESIST COATER DEVELOPER Work Phone: NOMS CWM FMComment on above:Other hyperlipidemia (CMS/HCC); EDITH (generalized anxiety disorder) (CMS/HCC); Recurrent major depression in partial remission (HCC) (CMS/HCC)Start: 10-27-2024 End: 23-80-8361cxhdoegstsRdlbupuvoPremier Health [facility] Work Phone: Start: 10-27-2024 End: 87-71-8386Tiarlvq encounter procedureFirsthealth Physician Group-[facility] Nephrology Adilson Work Phone: Start: 10-20-2024 End: 61-73-0840tjdyalfmtfKENBTwin City Hospitaltart: 10-13-2024 End: 51-74-4855vlkfkwgfdjSCNTAdena Regional Medical Centertart: 10-12-2024 End: 15-63-2850mhjpznzzliBZQESO MOOK ROLONFacility:[facility] Start: 10-12-2024 End: 68-89-3812Wrvaznb encounter procedureEun Black DO Work Phone: NeurologyComment on above:Gait abnormality (Primary Dx); Memory loss; Neck painStart: 10-08-2024 End: 22-26-2915Nyvwxg flowsheetLisa Aichholz RESIST COATER DEVELOPER Work Phone: NOMS CWM FMStart: 10-08-2024 End: 83-89-0103Clvaft flowsheetLisa Aichholz RESIST COATER DEVELOPER Work Phone: noMS CWM FMStart: 10-08-2024 End: 55-71-8544haazofwsvtTTNK AICHHOLZNot AvailableStart: 10-08-2024 End: 72-89-0583Rlqght outpatient visit 25 minutesLisa Anaisz RESIST COATER DEVELOPER Work Phone: noMS CWM FMComment on above:Primary hypertension (CMS/HCC) (Primary Dx); Chronic obstructive pulmonary disease, unspecified (CMS/HCC); Chronic kidney disease, stage 4 (severe) (CMS/HCC); Coronary artery disease involving buckland coronary artery 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 pectoris (CMS/HCC); Gastroesophageal reflux disease without esophagitis; EDITH (generalized anxiety disorder) (CMS/HCC); Recurrent major depressive disorder, in full remission (CMS/HCC); Mixed hyperlipidemia (CMS/HCC); MCI (mild cognitive impairment); Other hyperlipidemia (CMS/HCC); Recurrent major depression in partial remission (HCC) (CMS/HCC); Chronic obstructive pulmonary disease, unspecified COPD type (CMS/HCC)Start: 09-08-2024 End: 07-52-9117mchjceoudzUBKMH HANCOCKFacility:[facility] Centertart: 09-08-2024 End: 48-44-3985Kgozstm encounter Lewis Polo PhD Work Phone: NeuropyschologyComment on above:Major neurocognitive disorder (HCC) (Primary Dx); JITENDRA (obstructive sleep apnea); Chronic kidney disease, unspecified CKD stage; Coronary artery disease, unspecified vessel or lesion type, unspecified whether angina present, unspecified whether buckland or transplanted heart; Complaints of memory disturbanceStart: 06-27-2024 End: 25-19-6346Jwcetl OnlyJayy Pollocktrick RESIST COATER DEVELOPER Work Phone: noms CW FMComment on above:Recurrent major depression in partial remission (HCC) (CMS/HCC)Start: 06-23-2024 End: 82-16-3447Nzqeovny Result EncounterBrittany Coronado RESIST COATER DEVELOPER Work Phone: noms External Department UnsolicitedStart: 06-23-2024 End: 80-77-1916Bobcpljy Result EncounterBrittany Coronado RESIST COATER DEVELOPER Work Phone: noms External Department UnsolicitedStart: 06-23-2024 End: 03-74-8839trfzuvxfhzOUJGELXJHARMEET [facility] Campustart: 06-17-2024 End: 92-16-0488Xnemfw flowsheetBrittany Coronado RESIST COATER DEVELOPER Work Phone: NOIW CWM FMStart: 06-17-2024 End: 70-63-6042Luisqx flowsheetBrittany Coronado RESIST COATER DEVELOPER Work Phone: NOKO CWM FMStart: 06-17-2024 End: 04-22-4861szsmfpfxvqVGEVILQX FITMILLICENTTRICKNot AvailableStart: 06-17-2024 End: 78-01-9701Uoiuxj outpatient visit 15 minutesJayy Coronado RESIST COATER DEVELOPER Work Phone: noms CWM FMComment on above:Primary hypertension (CMS/HCC) (Primary Dx); Other hyperlipidemia (CMS/HCC); Coronary artery disease involving buckland coronary artery 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 pectoris (CMS/HCC); Frequent falls; Functional gait abnormality; CKD (chronic kidney disease) stage 4, GFR 15-29 ml/min (CMS/HCC)Start: 06-10-2024 End: 12-96-4809Qczrqf flowsheetJayy Moyerk RESIST COATER DEVELOPER Work Phone: noms CWM FMStart: 06-10-2024 End: 29-11-3711Nfrcpe flowsheetJayy Coronado RESIST COATER DEVELOPER Work Phone: noms CWM FMStart: 31-54-2670rmlsiokcjvBVPDIJBA FITZPATRICKNot AvailableStart: 84-09-9907iueuvfgqohWXNYWG R MOOK [facility] 05-12-2024 End: 16-71-9000Yomlocxttj hospital visit by physicianCt [facility] RadiologyComment on above:Memory loss [R41.3]Start: 05-04-2024 End: 99-86-0787riuhjyjdofHHUESK MOOK ROLONFacility:[facility] Start: 05-04-2024 End: 55-20-6951Fdltcvg encounter Matt Black DO Work Phone: NeurologyComment on above:Memory loss (Primary Dx); Abnormality of gaitStart: 03-31-2024 End: 23-90-0063ymovaoywraXqlrrqnxhUC [facility] Work Phone: Start: 03-31-2024 End: 34-06-3877Uijbmgm encounter procedureFirsthealth Physician Group-[facility] Nephrology Adilson Work Phone: Start: 03-28-2024 End: 96-33-1936KpikzjEegljp Fawwad MD Work Phone: noms CW FMComment on above:Gastroesophageal reflux disease without esophagitis; Recurrent major depression in partial remission (HCC) ([facility]/HCC)Start: 03-11-2024 End: 86-80-6111ijkastcwtuTFRRFR FAWWADNot AvailableStart: 09-19-2023 End: 58-01-2191Wgxhpd outpatient visit 25 minutesShaikh Cornelio LEMON Work Phone: noms CW IMComment on above:Traumatic complete tear of left rotator cuff, subsequent encounter (Primary Dx); Recurrent major depression in partial remission (HCC) ([facility]); Other hyperlipidemia ([facility]); EDITH (generalized anxiety disorder) ([facility]); CKD (chronic kidney disease) stage 4, GFR 15-29 ml/min ([facility]); Gastroesophageal reflux disease without esophagitis; Coronary artery disease involving buckland coronary artery 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 pectoris ([facility]); Primary hypertension ([facility]); Chronic obstructive pulmonary disease, unspecified COPD type ([facility])Start: 09-05-2023 End: 71-49-4438Mdjskivrn Result EncounterGeneric External Data ProviderNOMS External Department UnsolicitedStart: 09-05-2023 End: 06-11-8628Vbqciubmi Result EncounterGeneric External Data ProviderNOMS External Department UnsolicitedStart: 08-26-2023 End: 95-14-2271Ubctwcmgr Result EncounterGeneric External Data ProviderNOMS External Department UnsolicitedStart: 08-26-2023 End: 45-34-4674Rbpqrjrvv Result EncounterGeneric External Data ProviderNOMS External Department UnsolicitedStart: 07-29-2023 End: 52-04-2945Anazvurms Result EncounterGeneric External Data ProviderNOMS External Department UnsolicitedStart: 07-29-2023 End: 37-31-0422Obntkcjfh Result EncounterGeneric External Data ProviderNOMS External Department UnsolicitedStart: 04-09-2023 End: 83-23-7697Skudyknfh department patient visitNON STAFFFacility:[facility] Hospitaltart: 04-09-2023 End: 09-44-0215sgfmihrazdPqhg Bakusamas Other nort [employer] Other Start: 76-88-9935Lkuocrpyo encounterAzryan Pisano NephrologyStart: 03-13-2023 End: 92-49-1309fwlfugjeevGdjpbaBmnjd: 01-25-2023 End: 56-05-7971hefnfndnnlFzma Bakusamas Other [facility] [employer] Other Start: 40-71-5926Dquxhw outpatient visit 25 minutes Aziz Norris NephrologyStart: 08-15-2022 End: 18-12-8957Ulmppba encounter procedureJanchevy Kaufman DO Work Phone: NeurologyComment on above:MCI (mild cognitive impairment) (Primary Dx)Start: 07-27-2022 End: 75-35-7861jfgelpwpteTPESKR H FAWWADFacility:Y8Fgvgm: 07-10-2022 End: 50-86-5223sjujvpqzzfFotp Bakusamas Other [facility] [employer] Other Start: 84-97-9261Yqlwvo outpatient visit 15 minutes Hanna Pisano Nephrology ClydeStart: 07-07-2022 End: 57-42-2797umkfvtkwjjWLSD MANDOFacility:F1Ibmxs: 07-03-2022 End: 93-36-5841dcnbgvuuhdBlmri ChabanFacility:[facility] Start: 06-26-2022 End: 01-70-4821umnmxpapilNnrzcy Johns Other [employer] [place] [employer] Other Start: 39-74-5877Bjnowtypp encounterGleliseo ChoiSUMMIT [facility]ALTH[facility] Family Medicine [place]Start: 06-05-2022 End: 66-83-0925wqoltbijnrIhjwa Chaban Other noHab Housing Other Start: 53-86-3018Rrbfbj outpatient visit 25 minutes Wallacekaren Ira Pulmonary DiseaseStart: 05-29-2022 End: 22-42-4941etjentlgsiVwhlff [facility] Other noHab Housing Other Start: 87-46-6209Aonntbpfv encounterAnupam [facility] PsychiatryStart: 28-01-9272Kngxjrmhw encounterElsa Prescott Exercise PhysiologistCardiopulmonary & Vascular RehabComment on above:Fur Machine Operator - Other (In response to order placed in EPIC)Start: 04-11-2022 End: 61-21-4846Lbhehsv encounter procedureMD Corona Monroe Work Phone: [facility]-Sleep LabStart: 04-10-2022 End: 90-43-6270Jtbyvwj encounter procedureAmanchevy Kaufman DO Work Phone: NeurologyComment on above:Recurrent major depression in partial remission (HCC) (Primary Dx); MCI (mild cognitive impairment)Start: 03-13-2022 End: 14-32-9458tilupqewttYxpmap Jha Other noHab Housing Other Start: 93-22-8814Cxomijyhz encounterAnupam [facility] PsychiatryStart: 03-05-2022 End: 36-97-1996zpwtekhcsfGvbvcf Jha Other noHab Housing Other Start: 61-84-5196Tpmjlcxba encounterAnupam [facility] PsychiatryStart: 02-28-2022 End: 19-58-5260dpxavwlgojKndrf Chaban Other noHab Housing Other Start: 73-86-9035Hermszjsj encounterCarolynbreanna ChaAbrazo [facility] Referral CoordinatorStart: 02-27-2022 End: 31-78-1724mdclrlzijlSkixk Mabel Other noIceberg [employer] Other Start: 87-19-5550Hgrthj outpatient new 45 minutesCorona CasesoilaSUMMIT HEALTHCARE REGIONAL [facility] Pulmonary DiseaseStart: 97-70-8140Lgudsholl encounterKetiburcio Suazo [facility] [place]Start: 02-21-2022 End: 01-94-5496ntizglchhgDJAADR H FAWWADNorth [employer] Other Start: 02-09-2022 End: 32-15-4323vyhgwkjemjAynj Fct Lab Main 11 Other Phone: pulmonary MedicineComment on above:SpirometryQuestion regarding MRI BRAIN WO IVCONStart: 02-09-2022 End: 20-19-5845Tcciiwe encounter procedurePulm Fct Lab Main 11 Other Phone: ccf [facility] MAINStart: 02-08-2022 End: 76-46-3287Pzamsu Flakito Nur MD Work Phone: RADOL HOSPComment on above:Cognitive impairment, mild, so stated (Primary Dx)Shortness of breath (Primary Dx)Cognitive impairment, mild, so stated [G31.84]Start: 13-48-8271Lmzskhtem encounterAnupalexandro JhaFPG PsychiatryStart: 01-29-2022 End: 61-25-0629bqthfpvvlsHwkyu Carnahan Other noIceberg [employer] Other Start: 31-06-7467Udqdhh outpatient visit 15 minutes Cristo SuazoMercy San Juan Medical CenteryStart: 01-05-2022 End: 64-67-1118pugidyrajnZemty Carnahan Other noHab Housing Other Start: 22-31-0927Nepvnobya encounterKetiburcio LambJerold Phelps Community HospitalyStart: 01-01-2022 End: 69-28-3502arxbaugxoyRjblq Gabriele Other [employer] Other Start: 04-00-1470Ljnecofac encounterKetiburcio [facility]goyStart: 12-26-2021 End: 48-65-7268mqvzlpafyyVamtj Gabriele Other noHab Housing Other Start: 35-06-7643Xnqnha outpatient visit 25 minutes Cristo [facility] DiegoyStart: 12-22-2021 End: 76-94-4385Bajkhfr encounter Lucio Bright MD Work Phone: NeurologyComment on above: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) (Primary Dx); Cognitive impairment, mild, so stated; Depression, unspecified depression typeStart: 12-18-2021 End: 63-08-7595lyylmrssdtLoohjo [employer] Other [employer] Other Start: 39-69-7925Xrkvsvbzv encounterAnupam [facility] PsychiatryStart: 12-06-2021 End: 66-23-6588fmrhimajxqEsntjg [employer] Other [employer] Other Start: 77-19-6948Ebuykccwl encounterAnupam aF PsychiatryStart: 12-04-2021 End: 73-50-3408fgjogtmqiwJbohr [facility] Other noHab Housing Other Start: 60-39-2597Nowzaxygv encounterKetiburcio [facility] DiegoyStart: 09-13-2021 End: 06-27-1724bmnsyteectMsptsm [employer] Other [employer] Other Start: 97-16-4729Apiewyliw encounterAnupam [facility] PsychiatryStart: 08-16-2021 End: 60-18-8511rogewurjdgPbfoc Carnahan Other Nort [employer] Other Start: 11-78-9757Loqynjqid encounterCristo SuazoFPG Family Medicine [place]kyStart: 40-70-6686Xcbjozptr encounterCristo SuazoSUMMIT HEALTHCARE REG[facility] Family Medicine [facility] HospitalyStart: 42-10-8486Hvuoel outpatient visit 25 minutesEssam HermannashiFPG Nephrology Clinic [place] CityStart: 74-76-2277Bzkwkkfnx encounter Susannah PaulinokarFPG Family Medicine [place] CityStart: 04-03-2018 End: 44-47-0640Eywvnsy encounterORVILLE AMBURNFacility:FTPACIFIC ALLIANCE MEDICAL CENTERtart: 03-28-2018 End: 46-72-0965Xncesmk encounterORVILLE AMBURNFacility:[facility] Procedures DateProcedureProcedure DetailPerforming ClinicianStart: 71-43-6995HWM NT-PROBNP SERPL-MCNCGeneric External Data ProviderStart: 28-07-9310Bip routine ecg w/least 12 lds w/i&rDavilee Gant MD Work Phone: Start: 79-98-4642LST CREATININEGeneric External Data ProviderStart: 48-25-8196[place] ECHO DOPPLER COMPLETEGeneric External Data Provider Start: 34-21-2361FSAPMPBXE BLOOD PRESSUREGeneric External Data ProviderStart: 91-72-3958Acrty 1995 panel - Serum or PlasmaBill Gant MD Work Phone: Start: 32-57-2043Stqfx panelBrharmeet Coronado RESIST COATER DEVELOPER Work Phone: Start: 78-52-8858Xacbl 1995 panel - Serum or Plasma Misty Polo PhD Work Phone: Start: 74-44-2792Bv head/brain w/o contrast material Eun Black DO Work Phone: Start: 42-14-3332VT SHOULDER LEFT W/OGeneric External Data ProviderStart: 73-16-7838Emahi shoulder complete minimum 2 viewsGeneric External Data ProviderStart: 94-05-8032Xmlui shoulder complete minimum 2 views Generic External Data ProviderStart: 67-61-5895Ayauolkfy rspse spmtry pre&post- brncdilat Hua Lao MD Work Phone: Start: 25-16-8061FSP 3D POST PROCESSINGDriss Nur MD Work Phone: Start: 16-84-7906Djo brain brain stem w/o contrast materialSjoslyn Bright MD Work Phone: Start: 82-74-5681Bohrn depression screening assessment Jessie Bright MD Work Phone: Start: 65-78-2104KjknvsdyhlsOwauka Fawwad MD Work Phone: History of coronary artery bypass graftingHx of CABG Bill Gant MD Work Phone: History of coronary artery bypass graftingHx of CABG Bill Gant MD Work Phone: Plan of Treatment DateCare ActivityDetailAuthorStart: 26-49-5745Gokeoulll for malignant neoplasm of colonNOMS HealthcareStart: 86-53-2346Xiwyx panelLipid ScreeningTriHealth McCullough-Hyde Memorial Hospitaltart: 50-83-2949Grmvf panelLipid ScreeningTriHealth McCullough-Hyde Memorial Hospitaltart: 02-67-9589EQN Vaccine (1 - 1-dose 75+ series)RSV Vaccine (1 - 1-dose 75+ series) [facility] Hospitaltart: 19-72-2195Nilni BMI ScreeningAdult BMI ScreeningProOhiohealth Riverside Methodist Hospital SystemStart: 89-57-9714Fnobdwq ScreeningTobacco ScreeningProOhiohealth Riverside Methodist Hospital SystemStart: 38-43-4927Auhas BMI ScreeningAdult BMI ScreeningProOhiohealth Riverside Methodist Hospital SystemStart: 89-20-9583Amzlxko ScreeningTobacco ScreeningProOhiohealth Riverside Methodist Hospital SystemStart: 75-17-5053Vvbgsropzt measurementSerum CreatinineUniversity Hospitals Ahuja Medical Center Start: 05-31-2025 End: 17-86-5816Gdpayno encounter vmgybhqcv44/20/2025 1:20 PM EDT Office Visit [facility] [address] [place] [address] Noa Watson NP [address] [place] [address] [facility] FMStart: 05-02-2025 End: 64-77-8493VO Heart Perfusion W stress and W radionuclide IVNM CARDIAC PERF STRESS/PHARM Radiology Routine Coronary artery disease involving buckland coronary artery 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 pectoris Hx of CABG Other emphysema (HCC) ROMAN (dyspnea on exertion) Expected: 05/02/2025 (Approximate), Expires: 05/01/2026[facility] Work Phone: Comment on above:Expected: 05/02/2025 (Approximate), Expires: 05/01/2026Start: 04-16-2025 End: 37-64-0014Gluto metabolic 2000 panel - Serum or PlasmaBASIC METABOLIC PANEL Lab Routine Chronic heart failure with preserved ejection fraction (HCC) Expec dontae: 04/16/2025 (Approximate), Expires: 07/16/2025[facility] Work Phone: Comment on above:Expected: 04/16/2025 (Approximate), Expires: 07/16/2025Start: 04-16-2025 End: 71-21-7779Vmfowpr encounter lmwjemqcj16/05/2025 11:00 AM EDT Office Visit Neurology [address] [place] [address] Xvne Eun Black DO [address] [place], [place] [id number] 6month follow upNeurologyComment on above:6 month follow upStart: 04-15-2025 End: 04-97-1575[facility] DIFFUSION CAPACITY (DLCO)LUNG DIFFUSION CAPACITY (DLCO) PFT Routine Other emphysema (HCC) Expected: 04/15/2025 (Approximate), Expires: 05/01/2026[facility]Comment [facility]:Expected: 04/15/2025 (Approximate), Expires: 05/01/2026Start: 04-15-2025 End: 57-22-3041HZVD VOLUMESLUNG VOLUMES PFT Routine Other emphysema (HCC) Expected: 04/15/2025, Expires: 05/01/2026[facility] ClinicComment on above: Expected: 04/15/2025, Expires: 05/01/2026Start: 04-15-2025 End: 63-10-7015WIDLFFQJTI BASELINE ONLYSPIROMETRY BASELINE ONLY PFT Routine Other emphysema (HCC) Expected: 04/15/2025 (Approximate), Expires: 05/01/2026 [facility] Medical CenterComment on above:Expected: 04/15/2025 (Approximate), Expires: 05/01/2026Start: 04-15-2025 End: 60-19-6278LW Chest PA and LateralXR CHEST 2V FRONTAL/LAT Radiology Routine Other emphysema (HCC) Expected: 04/15/2025 (Approximate),Expires: 05/01/2026 [facility] ClinicComment on above:Expected: 04/15/2025 (Approximate), Expires: 05/01/2026Start: 85-43-5928Qonricypr [facility] HospitalStart: 03-10-2025 End: 62-66-2427GK Cervical spine WO contrastMR cervical spine without contrast Imaging Routine Cervical spondylosis Expected: 03/10/2025, Expires: 03/10/2026 [facility] Work Phone: Comment on above:Expected: 03/10/2025, Expires: 03/10/2026Start: 03-10-2025 End: 57-56-0411Jbkmtix encounter xhjjejtrq81/30/2025 9:45 AM EDT Office Visit [facility] [address] [place] [address] Darrick Cannon, PA-C [address] [place] [address] [facility] ClinicStart: 03-01-2025 End: 37-09-9051Onxvlcz encounter gjnpnuuom14/21/2025 1:40 PM EDT Office Visit [facility] [address] [place] [address] Noa Watson, PARI [address] [place] [address] [facility] FMStart: 02-19-2025 End: 41-50-7406Yojyrwerp to same day surgery oonqgx6402/19/2025 2:58 PM EDT - 02/19/2025 3:[address] [facility] ro[facility] [address] [place] [address] Justo Cherry MD [address] [place], [place] [phone] INJECTION FACET JOINT Bilateral C 5/6,6/7 [61042 (CPT )][facility] ProceduresComment on above:INJECTION FACET JOINT Bilateral C 5/6,6/7 [86777 (CPT )]Start: 02-19-2025 End: 47-66-9869Azv dx/ther agt pvrt facet jt crv/thrc 1 levelINJECTION FACET JOINT Cervical spondylosis 02/19/2025 2:58 PM EDTFREMONT PAINStart: 02-19-2025 Subsequent hospital visit by tooxianhi77/11/2025 2:58 PM EDT Hospital Encounter [facility] [address] [place] [address] Justo Cherry MD [address], [place] [phone] [facility] ProceduresStart: 01-19-2025 End: 79-06-2930Jaabltp encounter vicxzyluv80/10/2025 1:00 PM EDT Office Visit [facility] [address] [place] [address] Noa Watson NP [address] [place] [address] [facility] FMStart: 01-07-2025 End: 64-87-2379HR Cervical spine 2 or 3 ViewsXR cervical spine 2 or 3 views Imaging Routine Neck pain Expected: 01/07/2025 (Approximate), Expires: 01/07/2026[facility] Work Phone: Comment on above:Expected: 01/07/2025 (Approximate), Expires: 01/07/2026Start: 11-19-2024 End: 90-97-0361Ytkmjan encounter procedureNOMS [facility] FMComment on above:Chronic obstructive pulmonary disease, unspecified COPD type (CMS/HCC) (Primary Dx); Coronary artery disease involving buckland coronary artery 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 pectoris (CMS/HCC); Atherosclerosis of arteries of extremities (CMS/HCC); Primary hypertension (CMS/HCC); Gastroesophageal reflux disease without esophagitis; Chronic kidney disease, stage 4 (severe) (CMS/HCC); EDITH (generalized anxiety disorder) (CMS/HCC)Start: 09-16-2024 End: 40-68-6949Fuohfkd encounter ufgncjitm34/05/2025 1:00 PM EST Office Visit [facility] [address] [place] [address] Jayy Coronado NP [address] [place] [address] [facility] FMStart: 31-55-6066Zeovysy Directive Discussion Advance Directive DiscussionTriHealth McCullough-Hyde Memorial Hospitaltart: 01-01-2025Medicare Advantage Annual Wellness VisitMedicare Advantage Annual Wellness VisitUniversity Hospitals Ahuja Medical Center Start: 06-30-2024 End: 56-40-3742dobsuilhnh10/19/2024 11:30 AM EST Evaluation [facility] [address] [place] [address] Babak Aquino, PT [address] [place] [address] [facility] FB PTStart: 06-17-2024 End: 09-34-4520Jxttx 1996 panel - Serum or PlasmaLipid panel Lab Routine Primary hypertension (CMS/HCC) Expected: 06/17/2024 (Approximate), Expires:06/17/2025 [facility] HealthcareComment on above:Expected: 06/17/2024 (Approximate), Expires: 06/17/2025Start: 06-10-2024 End: 12-97-3266Iezsukz encounter procedureNOMS CW FMComment on above:Arrived Start: 41-27-2030Yfxhmyix ScreeningDiabetes ScreeningTriHealth McCullough-Hyde Memorial Hospitaltart: 05-12-2024 End: 59-50-6196Sxrgcta encounter wxuqlalkt19/01/2024 7:45 AM EDT Appointment Radiology [address] [place] [address] ct wo contrast RadiologyComment on above:ct wo contrastStart: 03-40-3643Qiyjh-19 Vaccine ( season)Covid-19 Vaccine ( season)[facility] Hospitaltart: 70-04-0852Kgxxjhnkn vaccinationInfluenza Vaccine (#1)[facility] Hospitaltart: 12-24-2023 End: 18-56-2745Giclfwv encounter akdnjaknc58/14/2024 1:15 PM EDT Office Visit [facility] [address] [place] [address] Shaikh Grimes MD [address] [place] [address] [facility] IMStart: 09-19-2023 End: 32-44-1447ULQ W Auto Differential panel - BloodCBC and differential Lab Routine Recurrent major depression in partial remission (HCC) ([facility]/HCC) CKD (chronic kidney disease) stage 4, GFR 15-29 ml/min (CMS/[facility]) Coronary artery disease involving buckland coronary artery 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 pectoris ([facility]) Primary hypertension ([facility])Expected: 09/19/2023 (Approximate), Expires: 09/19/2024[facility] Work Phone: Comment on above:Expected: 09/19/2023 (Approximate), Expires: 09/19/2024Start: 09-19-2023 End: 42-35-3107Cevrnwzsltzmw metabolic 2000 panel - Serum or PlasmaComprehensive metabolic panel Lab Routine Recurrent major depression in partial remission (HCC) ([facility]) CKD (chronic kidney disease) stage 4, GFR 15-29 ml/min ([facility]) Coronary artery disease involving buckland coronary artery 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 pectoris ([facility]) Primary hypertension ([facility]) Expected: 09/19/2023 (Approximate), Expires: 09/19/2024[facility] HealthcareComment on above:Expected: 09/19/2023 (Approximate), Expires: 09/19/2024Start: 09-19-2023 End: 71-81-5609Pshrlrmsxi [Mass/volume] in UrineCreatinine, urine, random Lab Routine CKD (chronic kidney disease) stage 4, GFR 15-29 ml/min ([facility]) Expected: 09/19/2023 (Approximate), Expires: 09/19/2024[facility] HealthcareComment on above:Expected: 09/19/2023 (Approximate), Expires: 09/19/2024Start: 09-19-2023 End: 18-43-6094Uuvfg 1996 panel - Serum or PlasmaLipid panel Lab Routine Other hyperlipidemia ([facility]) Expected: 09/19/2023 (Approximate), Expires:09/19/2024 [facility] HealthcareComment on above:Expected: 09/19/2023 (Approximate), Expires: 09/19/2024Start: 09-19-2023 End: 95-28-4577Ceivhrz, urine, randomProtein, urine, random Lab Routine CKD (chronic kidney disease) stage 4, GFR 15-29 ml/min ([facility]/HCC)Expected: 09/19/2023 (Approximate), Expires: 09/19/2024[facility] HealthcareComment on above:Expected: 09/19/2023 (Approximate), Expires: 09/19/2024Start: 23-70-8325Rjctgjb Directive DiscussionAdvance Directive DiscussionTriHealth McCullough-Hyde Memorial Hospitaltart: 48-64-5489Rjuentgyu vaccinationInfluenza Vaccine (#1)[facility] HealthcareStart: 86-72-8602Ddyvi depression screening assessmentDEPRESSION SCREENINGTriHealth McCullough-Hyde Memorial Hospitaltart: 27-42-9676ZKWGEFA DIRECTIVE DISCUSSIONADVANCE DIRECTIVE DISCUSSIONTriHealth McCullough-Hyde Memorial Hospitaltart: 09-54-8092Jxrjczyti vaccinationINFLUENZA (#1)[facility] Hospitaltart: 02-09-2022 End: 72-54-9421PQPOKGNVMC WITH DILATOR IF OBSTRUCTEDBarnesville Hospital Work Phone: comment on above:Expected: 02/09/2022, Expires: 03/10/2023Start: 12-22-2021 End: 29-47-7596MQISWCJV TOTAL W/REFLEXSYPHILIS TOTAL W/REFLEX Lab Routine Cognitive impairment, mild, so stated 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) Depression, unspecified depression type Expected: 12/22/2021, Expires: 02/21/2022[facility] Work Phone: comment on above:Expected: 12/22/2021, Expires: 02/21/2022tart: 12-22-2021 End: 56-49-7745Vixlhfpbtcx [Units/volume] in Serum or PlasmaTSH BLD Lab Routine Cognitive impairment, mild, so stated Dementia due to medical condition with beh avioral disturbance (HCC) Depression, unspecified depression type Expected: 12/22/2021, Expires: 02/21/2022[facility] Work Phone: comment on above:Expected: 12/22/2021, Expires: 02/21/2022tart: 12-22-2021 End: 09-50-9594QYJJKLN B12 BLOODVITAMIN B12 BLOOD Lab Routine Cognitive impairment, mild, so stated 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) Depression, unspecified depression type Expected: 12/22/2021, Expires: 2CWilson [facility] Work Phone: comment on above:Expected: 12/22/2021, Expires: 02/21/2022tart: 65-40-0390JNNME-19 VACCINE (4 - Booster for Pfizer series) COVID-19 VACCINE (4 - Booster for Pfizer series)[facility] Hospitaltart: 06-71-0447MULYA-19 VACCINE (4 - Booster for Pfizer series)COVID-19 VACCINE (4 - Booster for Pfizer series)[facility] Hospitaltart: 13-20-7815ZJPHTHS DIRECTIVE DISCUSSIONADVANCE DIRECTIVE DISCUSSIONCleKnox Community Hospitaltart: 70-97-7004Lvtd Risk ScreeningFall Risk ScreeningProOhiohealth Riverside Methodist Hospital SystemStart: 2018 PNEUMOCOCCAL: 65+ (1 - PCV)PNEUMOCOCCAL: 65+ (1 - PCV)[facility] Hospitaltart: 40-68-6826AOMVLFYMX AGE 65 AND OVER WITH 5YR LOOKBACK (#1)PNEUMOVAX AGE 65 AND OVER WITH 5YR LOOKBACK (#1)[facility] Hospitaltart: 85-23-7474PQZ Vaccine (1 - Risk 60-74 years 1-dose series)RSV Vaccine (1 - Risk 60-74 years 1-dose series) [facility] Hospitaltart: 67-97-0159INIQRPRJ CANCER SCREENING DISCUSSIONPROSTATE CANCER SCREENING DISCUSSIONCleKnox Community Hospitaltart: 40-36-1479Pakmjraghrksfu of varicella zoster vaccineZoster (Shingles) Vaccine (1 of 2)[facility] SystemStart: 93-73-7272OWASRVJO VACCINE (1 of 2)SHINGRIX VACCINE (1 of 2) [facility] Hospitaltart: 10-79-0128FVNIOCDHQ (FIT-DNA)COLOGUARD (FIT-DNA)[facility] Hospitaltart: 24-97-1691XcefqugnywgWNMPVBTSIVOKfilujgxl ClinicStart: 1998 COLORECTAL CANCER SCREENINGCOLORECTAL CANCER SCREENINGTriHealth McCullough-Hyde Memorial Hospitaltart: 93-25-6847KV COLONOGRAPHYCT COLONOGRAPHYCleKnox Community Hospitaltart: 1998 DIABETES SCREENDIABETES SCREENCleKnox Community Hospitaltart: 45-45-3406OELID OCCULT BLOODFECAL OCCULT BLOODTriHealth McCullough-Hyde Memorial Hospitaltart: 40-33-2358Hqwlaixqh for malignant neoplasm of colonTriHealth McCullough-Hyde Memorial Hospitaltart: 18-60-1161MQRLPXIPKNGFNBHOSLKQNBLGNN [facility] Hospitaltart: 32-31-7174Omizb panelLipid ScreeningUniversity Hospitals Ahuja Medical Center Start: 53-70-6295MEQKG SCREENLIPID SCREENTriHealth McCullough-Hyde Memorial Hospitaltart: 1972 DTaP,Tdap and Td Vaccines (1 - Tdap)DTaP,Tdap and Td Vaccines (1 - Tdap) [facility]ertart: 26-89-7238Oogho microalbumin profileTriHealth McCullough-Hyde Memorial Hospitaltart: 41-61-8342Nsiem BMI Follow Up PlanAdult BMI Follow Up PlanHaywood Regional Medical Centertart: 44-32-9075Hihrvs PCP Team Chronic Disease VisitAnnual PCP Team Chronic Disease VisitTriHealth McCullough-Hyde Memorial Hospitaltart: 99-76-9622Xrcpncu Screening Anxiety ScreeningTriHealth McCullough-Hyde Memorial Hospitaltart: 68-25-3020Xbawkvyqt B surface antibody levelLDL CholesterolTriHealth McCullough-Hyde Memorial Hospitaltart: 64-78-4849JMDBGPAOJ C SCREENING HEPATITIS C SCREENINGTriHealth McCullough-Hyde Memorial Hospitaltart: 48-42-8332Cfpgqrbsm C screening Hepatitis C ScreeningTriHealth McCullough-Hyde Memorial Hospitaltart: 38-75-0536Dnwhsvvecv Screening Depression ScreeningHaywood Regional Medical Centertart: 1953Medicare Annual Wellness (AWV)Medicare Annual Wellness (AWV)[facility] HealthcareStart: 1955 Screening for malignant neoplasm of colonJORDAN [facility] HealthcareStart: 08-61-3290Mftlrcm CounselingTobacco CounselingFulton County Health CenterCBC W Auto Differential panel - BloodCBC and differential Lab Routine Primary hypertension (CMS/HCC) Ordered: 06/17/2024[facility] Work Phone: Comment on above:Ordered: 06/17/2024omprehensive metabolic 2000 panel - Serum or PlasmaComprehensive metabolic panel Lab Routine Primary hypertension (CMS/HCC) Ordered: 06/17/2024[facility] CenterComment on above:Ordered: 06/17/2024 End: 13-40-3123VF Head WO contrastCT BRAIN WO IVCON Radiology Routine Memory loss 1 Occurrences starting 05/04/2024 until 5C[facility] Work Phone: Comment on above:1 Occurrences starting 05/04/2024 until 06/03/2025 End: 30-16-5305Tfv brain brain stem w/o contrast materialMRI BRAIN WO IVCON Radiology Routine Cognitive impairment, mild, so stated 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) Depression, unspecified depression type 1 Occurrences starting 12/22/2021 until 01/21/2023[facility] Work Phone: comment on above:1 Occurrences starting 12/22/2021 until 01/21/2023Renal function 2000 panel - Serum or PlasmaSelect Medical Specialty Hospital - AkronRenal function 1999 panel - Serum or White HospitalRenal function 1999 panel - Serum or [facility] Immunizations Immunization DateImmunizationNotesCare VnnlhxyjTiadsjvm10-93-1027ISVMX-24 Vaccine Pfizer - Documentation Purposes OnlyCorona Monroe Other [employer] Other 10-625633-71-0874azgngdxts, high dose seasonal, preservative-freeSusannah Nevarez Other [employer] Other [phone], High-dose Seasonal, Quadrivalent, Preservative FreeShaikh Cornelio LEMON Work Phone: [facility] CenterFeabklbnee37-23-0883qexldedmm virus vaccine, unspecified formulationSselene Grimes MD Work Phone: [facility]03-30-2021COVID-19 PfizerSusannah Nevarez Other [employer] Other [id number]-76 Vaccine Pfizer - Documentation Purposes OnlySusannah Nevarez Other [employer] Other [id number], high dose seasonal, preservative-freeSusannah Nevarez Other noIceberg [employer] Other [id number] polysaccharide vaccine, 23 valentSusannah Nevarez Other noIceberg [employer] Other [id number] virus vaccine, unspecified formulationSelect [facility]12-23-2020Influenza, High-dose Seasonal, Quadrivalent, Preservative Kofi Grimes MD Work Phone: [facility] CenterCjedbtbboo51-30-0778djpzwhhgvywt conjugate vaccine, 13 valentSusannah Nevarez Other noHab Housing Other Payers DatePayer CategoryPayerPolicy [id number] (Managed Care) [id number] 2025Medicare [place] [id number] [id number] 2024MedicaidAETNA MEDICARE ADVANTAGE [id number]0-2695JhpvProv[facility] 1.2.840.116325.1.13.693.2.7.9.783656.733144.52879-17-7833Zttc-hga [id number] BLUE ACCESS PPO [id number] 2020-Present [phone] [address] [place] [address] PPO [id number] MedicareMEDICARE MEDICARE A AND B [id number] 2015-Present [phone] [place] [address] [id number] [id number] 2016Medicare 1.2.840.855863.1.13.159.2.7.3.538[id number] 2.16.840.1.178529.3.57[id number] 2.16.840.1.713015.3.57[id number] 2.16.840.1.503581.3.57[id number] 2.16.840.1.084574.3.579.[id number] 2..840.1.310297.3.579.2.291095-99-6243Dfcdfnc5355224 2..840.1.191454.3.579.2.101618-53-9604Xxztojq8724373 2.840.1.099096.3.579.2.096063-47-3005Vnshsbf3455669 2..840.1.694588.3.579.2.373943-43-8229Sqasmrg55535639 2..840.1.440865.3.579.2.865907-93-1377Bqgfcsi3382362 2..840.1.033332.3.579.[id number] 2..840.1.971233.3.579.2.442339-87-3511Rrjtpjf237686824 2..840.1.036418.3.579.2.142163-81-3500Gbneyqz349476143 2.16.840.1.449979.3.579.[id number] 2.16.840.1.481180.3.579.2.120[id number] 2..840.1.362121.3.579.2.[id number] 2.16.840.1.844131.3.579.2.[id number] 2..840.1.745152.3.579.2.983833-45-8387Fljamhj947247480 2..840.1.150834.3.579.2.[id number] 2..840.1.382437.3.579.2.92[id number] 2.840.1.519027.3.579.2.956026-39-5673Polhbnk33674811 2.0.1.222586.3.579.2.428443-47-4026Gpbv Cross Blue [id number] 2..8.957915.[id number] 2..2.089617.8875-01-1900 Private Health [id number]-[id number]-5110-[id number] [id number]-[id number] 2.0.1.988816.3.579.2.439Qjhgusa10010015 2..1.470722.3.579.2.531 Social History DateTypeDetailFacilityStart: 12-22-2021 End: 58-40-2686Vixdvmb smoking status NHISNever smoked tobaccoUniversity Hospitals Ahuja Medical Center Start: 12-22-2021 End: 31-61-0522Azebjug use and exposureUser of smokeless tobaccoUniversity Hospitals Ahuja Medical Center End: 51-67-0227Qotjyrz of tobacco useChews TobaccoTriHealth McCullough-Hyde Memorial Hospitaltart: 49-69-5369Sdt Assigned At BirthNot on fileTriHealth McCullough-Hyde Memorial Hospitaltart: 12-12-2021 End: 47-33-1018Sbpzprcj to SARS-CoV-2 (event)Not sureTriHealth McCullough-Hyde Memorial Hospitaltart: 07-22-2023 End: 60-11-0444Los Assigned At [facility] HealthcareStart: 09-30-2020 End: 90-69-9689Jlrhyfd smoking status NHISEx-smoker (finding)[facility] Hospitaltart: 55-08-4064Evc Assigned At [facility] Hospitaltart: 99-27-4425Ybhidbr use and exposureFormer smokeless tobacco userUniversity Hospitals Ahuja Medical CenterHistory of tobacco useCurrent smokerNOFL HealthcareHistory of tobacco useCigarette SmokerJORDAN VALLEY [facility] HealthcareStart: 07-12-2023 End: 90-60-2795Amuneyi use and exposureSmokeless tobacco non-userNOFL Healthcare Start: 07-12-2023 End: 22-25-2255Tezbaqe intakeLifetime non-drinker (finding)[facility] HealthcareStart: 07-22-2023 End: 25-21-8846Drhkmeo of Social functionNOMS HealthcareWithin the last year, have you been afraid of your partner or ex-partner?NoNOMS HealthcareAre you now , , , , never or living with a partner? MarriedNOMS HealthcareHow often to you have a drink containing alcohol?NeverNOMS HealthcareStart: 12-05-2021 End: 84-13-4592Eay many standard drinks containing alcohol do you [...] before (I/we) got money to buy more.Never trueNOFL HealthcareStart: 07-12-2023 Alcohol Commentcaffeine: 1-2 cups per dayMissouri Rehabilitation CenterStart: 10-02-2019 End: 27-07-1461IffMmvd (finding)[facility]How often do you need to have someone help you when you read instructions, pamphlets, or other written material from your doctor or pharmacy [SILS]SometimesNOMS HealthcareAre you now , , , , never or living with a partner?SeparatedJORDAN VALLEY [facility]ICAL [facility] HealthcareHow hard is it for you to pay for the very basics like food, housing, medical care, and heatingNot very hardNOFL HealthcareDo you feel stress - tense, restless, nervous, or anxious, or unable to sleep at night because yourmind is troubled all the time - these days [OSQ]To some extentMissouri Rehabilitation CenterStart: 04-40-1304Ycjenzxfb beverage intakeEx-drinker (finding)University Hospitals Ahuja Medical CenterNEGATED: Highlighted rowStart: NINFHistory of tobacco usePassive smokerMissouri Rehabilitation Center Medical Equipment Procedure CodeEquipment CodeEquipment Original TextEquipment IdentifierDates Repair, hernia, umbilicalAbdominal hernia surgical mesh, composite-polymer ()[id number] FDAStart: 09-30-2020 Goals DatePatient GoalDesired Activity/StatePersonal health goal Functional Status LomaEmqucrvfrgRwyvczXjjqfdim86-74-7463Wyx often do you have a drink containing alcohol?Never 02/28/2025 4:11 PM EDT Mychart, Generic NeverMissouri Rehabilitation Center 27-89-1930Nuopgnkfxe statusPatient does not drink 02/28/2025 4:11 PM EDT Canvera Digital Technologieshart, Generic Patient does not drinkMissouri Rehabilitation CenterYieywrsxvh85-87-3851Xiqjpiw Health Questionnaire 2 item (PHQ-2) [Reported][facility] Clinical Notes 05-23-2021 to 06-19-2025 Note Date & ZouwGeweVuvijmnq58-51-7883 Note Attestation signed by Italo Lyles MD at 06/20/2025 8:50 PM I saw the patient with the resident. I agree with the above findings. No evidence of cellulitis. No evidence of infection. We are applying peel and place negative for pressure. Will discharge the patient on antibiotics see him in 1 week as follow-up. [facility] Vascular and Wound Surgery DAILY [...] Service Please direct primary wound calls to: [phone] Please direct primary vascular calls to: [phone] This note was created with the assistance of a speech-recognition program. While intending to generate a document that accurately reflects the content of the encounter, no guarantee can be provided that every mistake has been identified and corrected by editing '[facility]11-08-2025 Note [facility] checked [employer] portal for Ready Care vac approval, however, no updates have been made to patients account. [facility] had emailed back and forth with [employer] windows support engineer 06/18/25 regarding Ready Care vac approval as patient is medically ready for hospital discharge. Last email sent to [employer] windows support engineer has gone unanswered. [facility] has re-ordered Ready Care Vac, and re-uploaded necessary documentation to assist in approval. [facility] will continue to check [employer] portal for approval, and provide updates as able. 1230: Primary RN requested update on Ready Vac approval. [facility] attempted to call OR Meebo Rep, Breanne, but did not receive answer. [facility] called [employer] directly to inquire about Ready Care Vac approval. [employer] rep, Guillermo, stated that he sees that everything has been uploaded, and that someone will be working on the case as soon as possible. Guillermo stated that on the weekends when staffing is customer contact specialist, their computerized system does not automatically assign cases for review/approval. Guillermo stated that he will push this case to a ccie for review and approval, and will have the ccie contact [facility] once updates are available. Guillermo also stated that this process can take up to 3 hours. [facility] reiterated that all necessary documentation was submitted both via fax, and via online portal on 06/18/25, and that the patient has been medically ready for hospital discharge since 06/18/25. Guillermo stated that he would do his best to get this taken care of as soon as possible. Update provided to Primary RN. [facility] will continue to follow. 1258: Received call from [employer] Rep Ian regarding Ready Vac approval. Ian has stated that Ready Vac has been approved, and she will order patients home supplies for shipment. [facility] ordered Ready Care Vac from [employer] based on available Ready Care Vac listed on [employer] website. Primary RN notified. [facility]11-07-2025 NotePt selected [facility] for HHC and AVS was sent. Family was notified of discharge today. Awaiting wound vac placement for discharge.[facility]11-06-2025 Note Attestation signed by Italo Lyles MD [...] the wound with Betadine and a dressing. [facility] Vascular and Wound Surgery DAILY [...] Home meds resumed Will return home at [place] Oziel Calixto MD General Surgery Resident, PGY-1 Vascular/Wound Service Please direct primary wound calls to: [phone] Please direct primary vascular calls to: [phone] (more content not included)... [facility]11-05-2025 NoteVancomycin Timed Date/Time Value Ref Range Status [...] for 48 hours and no gram positive growing.[facility]11-05-2025 NoteUnLakeHealth [facility] Vascular and Wound Surgery DAILY [...] Home meds resumed Will return home at [place] Will Keys PA-C Vascular/Wound Service Please direct [...] Will Keys PA-C Consult ordered by: K[facility] 06-16-2025 Note06/16/25 3947 Admission Assessment Questions Verify insurance with patient [...] Status Interested Does the patient have a shoe caser assigned to them through their insurance? No [...] able to send link and activate MyChart? [facility]11-05-2025 NotePharmacy Dosing Service - Vancomycin Progress Note Pharmacy is consulted for the dosing and evaluation of: Drug: Vancomycin Duration: Day 1 of empiric therapy Indication: complicated skin and soft tissue infection Ljdlr-hc-zkbmwk Other Antimicrobial Regimens: cefepime 1g q8h for [...] Total body weight: 79.4 kg (175 lb) Foster body weight: 63.8 kg (140 lb 10.5 [...] or questions Thank you, Khalida Ivan, PharmD, 06/16/25[facility] 06-15-2025 Note06/15/25 8201 Financial Resource Strain How hard is it [...] than 3 How often do you attend mormon or christianity services? Never Do you belong to any clubs or organizations such as mormon groups, unions, fraternal or athletic groups, or [...] In the past 12 months has the ShowMe VIdeoke, gas, oil, or water [employer] threatened to shut off services in your home? 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 No [...] for RW; SW consulted for DME referral. [facility]10-29-2025 NoteUnLakeHealth TriPoint Medical Center Vascular and Wound Surgery DAILY [...] Service Please direct primary wound calls to: [phone] Please direct primary vascular calls to: [phone] This note was created with the assistance of a speech-recognition program. While intending to generate a document that accurately reflects the content of the encounter, no guarantee can be provided that every mistake has been identified and corrected by editing '[facility]10-28-2025 Note [facility] Surgical Intensive Care Unit Progress Note Chief [...] Value Ventricular Rate 54 Atrial Rate 54 [place] Interval 190 QRS DURATION 120 QT Interval 492 QTC CALCULATION(BAZETT) 466 P Oxford 36 R-Oxford -22 T Wave Oxford 95 Impression Sinus bradycardia Intra-ventricular conduction delay Nonspecific ST and T wave abnormality Abnormal ECG When compared with ECG of 08-APR-2025 07:50, no significant changes was noted Confirmed by Saqib Saldana ([id number]) on 05/11/2025 11:35:47 PM Assessment The patient is a 70 y.o. year old (more content not included)...[facility]10-28-2025 NoteThis report has been cancelled.[facility]10-28-2025 NoteUnLakeHealth TriPoint Medical Center Vascular Surgery DAILY PROGRESS NOTE [...] PGY-4 Vascular Surgery Service For non-urgent questions, The Skimm Chat may be used [phone] - [phone], M-F. For urgent concerns, please call [phone], or ask the electron beam welding machine operator to connect you to the on-impersonator character. For after-hours concerns, please page [phone], or ask the electron beam welding machine operator to connect you to the on-impersonator character. This note was created with the assistance of a speech-recognition program. While intending to generate a document that accurately reflects the content of the encounter, no guarantee can be provided that every mistake has been identified and corrected by editingAccess Hospital [facility]10-27-2025 Note Patient: Kel Castillo Procedure Summary Date: 06/07/25 Room / Location: [address] / [facility] Operating Room Anesthesia Start: 1450 Anesthesia Stop: [...] were no known notable events for this encounter.[facility]10-27-2025 NoteAirway Date/Time: 06/07/2025 3:09 PM Reason: elective Airway not difficult General Information and Staff Patient location during procedure: OR Anesthesiologist: Judith Malloy MD Resident/SENIOR NET PROGRAMMER/CAA: Young Carcamo MD Performed: resident/SENIOR NET PROGRAMMER/MATHIEU Patient Condition Indications for airway management: anesthesia [...] approach: 1 Number of other approaches attempted: 0UnElyria [facility] 06-07-2025 NoteArterial Line: Date/Time: 06/07/2025 12:38 PM [...] Staffing Performed: resident/NABILA/MATHIEU Anesthesiologist: Judith Malloy MD Resident/SENIOR NET PROGRAMMER: Young Carcamo MD Performed by: Young Carcamo MD Authorized by: Judith Malloy MDAccess Hospital [facility]10-27-2025 NotePlan same as belowUnElyria Memorial Hospital10-27-2025 Note Relevant Hx: Can walk only 10 steps prior to stopping due to pain Course: Previous stenting of the right SFA, continues to be symptomatic Today's Plan: OR today for right fem-pop bypass with graft, 2g Ancef given for surgical prophylaxisAccess [facility]10-26-2025 NotePatient: Kel Castillo Procedure Information Date/Time: 06/07/25 1100 Procedures: CREATION, BYPASS, ARTERIAL, FEMORAL TO POPLITEAL, USING GRAFT (Right) LOWER EXTREMITY ANGIOGRAM WITH POSSIBLE INTERVENTION (Left) LOWER EXTREMITY INTERVENTION Location: [facility] OR [address] [place] [address] / [facility] Operating Room Surgeons: Italo Lyles MD Relevant Problems Cardio (+) Atherosclerosis of arteries of extremities (+) Hypertensive disorder (+) Migraine GI (+) Gastroesophageal reflux disease without esophagitis /Renal (+) Chronic kidney disease, stage 4 (severe) ([facility]/HCC) Neuro/Psych (+) Migraine Pulmonary (+) Chronic obstructive pulmonary disease, unspecified ([facility]/HCC) Clinical information reviewed: TTE 04/27/2025 LVEF 40-45% Normal RV size and function Biatrial enlargement Left heart catheterization 05/11/2025 FINAL IMPRESSIONS: Severe, three-vessel buckland coronary artery disease There are 2 out [...] products. Plan discussed with attending. Additional Equipment RequestsAccess Hospital [facility]10-15-2025 Note Nephrology Clinic Patient: Kel Castillo; 70 [...] His diet is high in potatoes / vietnamese fries. We discussed low potassium diet in [...] NITRITEU NEGATIVE 10/05/2019 HOME (more content not included)...[facility]10-06-2025 NoteLeft voicemail to schedule nephrology referralAccess [facility]09-18-2025 NoteSpoke to daughter Glenda in reference to cardiac cath per Dr. Tolliver. Daughter verbalized understanding and agreed with plan of care. Labs [facility] to [facility], [facility]Un[facility]09-18-2025 NoteHNO ID: [id number] Author: EUN TRENT DO Service: ? Author Type: Physician Type: Progress Notes Filed: 04/29/2025 16:05 Note Text: [facility] Follow up/ Established patient visit Individuals who were included in, or assisted with the encounter were: Samir Castillo Eun Black DO Chief Complaint/Issues: Samir Castillo is a 70 year old male seen in the [facility] for: Memory loss [...] TABLET BY MOUTH TWIC (more content not included)...[facility]09-18-2025 NoteHNO ID: [id number] Author: CIELO CHILDERS MA Service: ? Author Type: Corking Machine Operator Type: Progress Notes Filed: 04/29/2025 16:05 Note [...] 1 SD worse than population and warrants attentionTrinity Health System [facility]09-10-2025 NoteDIVISION OF VASCULAR SURGERY HPI [...] has had an HUBER study done at [facility] on 02/23/25 where right PT was, 0.55. right DP 0.53, right TBI 0.32, left PT 0.6, left DP 0.63, left TBI 0.51. He had a aortogram done by Dr. 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 Patient is taking [...] Date Cancer (CMS/HCC) Coronary artery disease Hyperlipidemia HypertensionAccess Hospital [facility]09-10-2025 NoteDIVISION OF VASCULAR SURGERY HPI Kel Castillo is a 69 y.o. male who presents today for No chief complaint on file. Patient referred to us for PAD. HE has had a HUBER study done at [facility] on 02/23/25. Patient with a [...] Date Cancer (CMS/HCC) Coronary artery disease Hyperlipidemia HypertensionAccess [facility]08-25-2025 Telephone encounter Note* Telephone Encounter - Mariana Wheeler LPN - 04/05/2025 4:02 PM EDT Chest x-ray results received from [facility]. Scanned in for review. Mariana Wheeler LPN [facility]08-25-2025 Miscellaneous Notes* Telephone Encounter - Mariana Wheeler LPN - 04/05/2025 4:02 PM EDT Chest x-ray results received from [facility]. Scanned in for review. Mariana Wheeler LPN documented in this encounterUniversity Hospitals Ahuja Medical Center08-22-2025 Telephone encounter Note * Telephone Encounter - Brianne Patterson LPN - 04/02/2025 8:21 AM EDT I spoke to Nini and informed them of 's response and recommendations. She voiced understanding and will call back with fax number for lab of choice. Brianne Patterson LPN [facility]08-22-2025 Miscellaneous Notes* Telephone Encounter - [...] that can be done in [place] * Telephone Encounter - Brianne Patterson LPN - 04/02/2025 8:05 AM EDT I spoke to Nini and informed them of 's response to lab results and recommendations. She voiced understanding and wants to go ahead and start both medications. [facility] in [place] on file is pharmacy of choice. Brianne [...] To: Bill Gant MD documented in this encounterUniversity Hospitals Ahuja Medical Center08-22-2025 Note* Addendum Note - Bill Gant MD - 04/02/2025 8:18 AM EDTAddended by: BILL GANT on: 04/02/2025 08:18 AM Modules accepted: Orders [facility]08-22-2025 Telephone encounter Note* Telephone Encounter - Bill Gant MD - 04/02/2025 8:17 AM EDT If the Jardiance is too expensive just have them cancel that particular prescription. I will order a BMP for about 2 weeks that can be done in [place] [facility]08-22-2025 Telephone encounter Note* Telephone Encounter - Brianne Patterson LPN - 04/02/2025 8:05 AM EDT I spoke to Nini and informed them of 's response to lab results and recommendations. She voiced understanding and wants to go ahead and start both medications. [facility] [place] on file is pharmacy of choice. Brianne Patterson LPN [facility]08-22-2025 Telephone encounter Note* Telephone Encounter [...] 5:02 PM EDT To: Bill Gant MD [facility]08-21-2025 Instructions* Patient Instructions* Bill Gant [...] get back with you. Please ask your clinical trials nurse to send results of the peripheral artery imaging that is planned to look at your legs in the next few weeks. documented in this encounterUniversity Hospitals Ahuja Medical Center08-21-2025 History of Present illness Narrative* Bill Gant MD - 04/01/2025 2:20 PM EDT Chief Complaint No chief complaint on file. History of Present Illness: Samir Castillo is a 69-year-old male with a history of CAD, status post-CABG, HTN, HLD, COPD, PAD, stage 4 CKD, and mild cognitive impairment, presenting for a new patient visit. He lives in [place] andgets most of his care in [place] at [facility] but just wants a second [...] supplemental oxygen. He has not seen a police service technician recently and has not had any pulmonaryfunction tests. He denies any history of diabetes, liver disease, or excessive alcohol use. He denies any internal bleeding or significant bruising. He denies any use of NSAIDs such as Advil or Aleve. He has a history of mild cognitive impairment and is no longer driving. He relies on his family fortransportation. 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 He quit smoking 40 [...] 1/2 TABLETS BY MOUTH EVERY DAY omega 5-dke-saf-fish oil (FISH OIL) 100-160-1,000 mg cap Take [...] and Plan: 1. Coronary artery disease involving buckland coronary artery 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 pectoris(I25.10) 2. Hx of [...] renal insufficiency), stage 4 (severe) ([facility]) (N18.4) Stage 4 renal insufficiency; most recent [...] planned peripheral angiogram by Dr. Tolliver at [facility]. - Discussed potential interventions (balloon angioplasty, stenting, surgery) depending on angiogramfindings. - Advised patient and family to ensure results are sent to our office for review. 9. Other emphysema ([facility]) (J43.8) COPD with mild baseline symptoms; no [...] avoid him having to come back to [place] or [place] for all this testing. If they are done locally in the [facility] or in [place] I would then asked that results be sent to our office when available. Thank you Electronically signed by Bill Gant MD on March 31, 2025, 7:13 AM [1] Social History Tobacco Use Smoking status: Never Smokeless tobacco: Former Types: Chew Quit date: 07/14/2022 documented in this encounterUniversity Hospitals Ahuja Medical Center08-21-2025 NoteHNO ID: [id number] Author: BILL GANT MD Service: ? Author Type: Physician Type: Progress Notes Filed: 04/01/2025 15:11 Note Text: Chief Complaint No chief complaint on file. History of Present Illness: Samir Castillo is a 69-year-old male with a history of CAD, status post-CABG, HTN, HLD, COPD, PAD, stage 4 CKD, and mild cognitive impairment, presenting for a new patient visit. He lives in [place] and gets most of his care in [place] at [facility] but just wants a second [...] supplemental oxygen. He has not seen a police service technician recently and has not had any pulmonary [...] family for transportation. He worked at a [employer] before retiring. He quit smoking 40 years [...] 1/2 TABLETS BY MOUTH EVERY DAY omega 3-xso-tdi-fish oil (FISH OIL) 100-160-1,000 mg cap Take [...] no resting tachypnea H (more content not included)...[facility]07-30-2025 History of Present illness Narrative* Darrick Cannon PA-C - 03/10/2025 9:45 AM EDT [facility] [address] [place] [address] Patient: Kel Castillo Jr. Sex: male : 1955 Age: 69 y.o. PCP: NOA WATSON, SALES SERVICE REPRESENTATIVE-DENTAL TECHNICIAN 03/10/2025 Kel Castillo Jr. is here for [...] disease Chronic kidney disease, stage 4 (severe) ([facility]) 09/19/2023 Chronic obstructive pulmonary disease, unspecified ([facility]) 03/11/2024 CKD (chronic kidney disease) stage 3 Closed nondisplaced fracture of greater tuberosity of left humerus with routine healing 09/19/2023 COPD (chronic obstructive pulmonary disease) ([facility]) Coronary artery disease Coronary artery disease involving buckland coronary artery 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 pectoris 09/19/2023 Depression Dyspnea and respiratory abnormalities 09/18/2013 66 pk/yr history of smoking. Quit in 1994, when diagnosed with NSCLC and treated with RULobectomy and XRT. Also has extensive coronary disease, with CABG. Sees cardiology at [place]. Anxiety, HTN, CKD IIIb. PCP started albuterol [...] echocardiogram Hypertension Intermittent claudication 08/25/2012 Lung cancer ([facility]) MCI (mild cognitive impairment) 04/12/2022 Migraine 07/18/2012 [...] 02/19/2025 Performed by Justo Cherry MD at [facility] No Known Allergies History reviewed. No [...] Resource Strain: Low Risk (02/28/2025) Received from [facility] Overall Financial Resource Strain (CARDIA) Difficulty of Paying Living Expenses: Not very hard Food Insecurity: No Food Insecurity (03/10/2025) Hunger Screening Food Insecurity - Worry: Never True Food Insecurity - Inability: Never True Transportation Needs: No Transportation Needs (02/28/2025) Received from [facility] PRAPARE - Transportation Lack of Transportation (Medical): No Lack of Transportation (Non-Medical): No Physical Activity: Inactive (02/28/2025) Received from [facility] Exercise Vital Sign Days of Exercise per Week: 0 days Minutes of Exercise per Session: 0 min Stress: Stress Concern Present (02/28/2025) Received from [facility] [employer] - Occupational Stress Questionnaire Feeling of Stress : To some extent Social Connections: Socially Isolated (02/28/2025) Received from [facility] Social Connection and Isolation Panel [NHANES] Frequency of Communication with Friends and Family: More than three times a week Frequency of Social Gatherings with Friends and Family: Once a week Attends Yarsani Services: Never Active Member of Clubs or Organizations: No Attends Club or Organization Meetings: Never Marital Status: Interpersonal Safety: Not At Risk (02/28/2025) Received from [facility] Humiliation, Afraid, Rape, and Kick questionnaire Fear of Current or Ex-Partner: No Emotionally Abused: No Physically Abused: No Sexually Abused: No Housing Instability: Low Risk (02/28/2025) Received from [facility] Housing Stability Vital Sign Unable to [...] PA-C who performed the above service. Noa Andreson CNA 03/10/25 1033 Noa Anderson CNA 03/10/25 1040 Darrick Cannon PA-C 03/10/25 1049 documented in this [facility]07-[facility] History of Present illness Narrative* Noa Watson [...] (65 Fe) MG tablet 1 tablet, Daily Fjofdiamoab-Focerfrar-Mpgiqx (Trelegy Ellipta) 100-62.5-25 MCG/ACT aerosol powder 1 [...] Medical History: Diagnosis Date Alcoholism ([facility]) ( quit drinking 25 years ago) Anxiety and depression Bronchitis Chicken pox CKD (chronic kidney disease), symptom management only, stage 4 (severe) ([facility]) Claudication of calf muscles COPD (chronic obstructive pulmonary disease) ([facility]) Coronary artery disease Depression with anxiety GERD [...] Addressed This Visit Coronary artery disease involving buckland coronary artery 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 pectoris Established with [facility] Cardiology Current meds: asa, amlodipine, [...] (HCC) Is prescribed trelegy inhaler Relevant Medications Kyzmfakwikb-Tiezsiygf-Lyxrkg (Trelegy Ellipta) 100-62.5-25 MCG/ACT aerosol powder Primary [...] AM EDTAssociated Problem(s): Coronary artery disease involving buckland coronary artery 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 pectoris Established with [facility] Cardiology Current meds: asa, amlodipine, [...] meds: plavix, norvasc, imdur, gaby, b kelsy, documented in this encounterMissouri Rehabilitation [id number] Instructions* Patient Instructions* Noa Watson NP - 03/01/2025 1:40 PM EDT Please call dr amezcua's office to get an appt documented in this encounterMissouri Rehabilitation [id number] History of Present illness Narrative* Darrick Cannon PA-C - 01/27/2025 10:00 AM EDT [facility] [address] [place] [address] Patient: Kel Castillo Jr. Sex: male : 1955 Age: 69 y.o. PCP: NOA WATSON, GERARDO-DENTAL TECHNICIAN 01/27/2025 Kel Castillo Jr. is here for [...] kidney disease COPD (chronic obstructive pulmonary disease) ([facility]) Coronary artery disease Hypertension Neck pain History [...] Resource Strain: Medium Risk (07/22/2023) Received from [facility] Overall Financial Resource Strain (CARDIA) Difficulty of Paying Living Expenses: Somewhat hard Food Insecurity: No Food Insecurity (01/27/2025) Hunger Screening Food Insecurity - Worry: Never True Food Insecurity - Inability: Never True Transportation Needs: No Transportation Needs (07/22/2023) Received from [facility] PRAPARE - Transportation Lack of Transportation (Medical): No Lack of Transportation (Non-Medical): No Physical Activity: Inactive (07/22/2023) Received from [facility] Exercise Vital Sign Days of Exercise per Week: 0 days Minutes of Exercise per Session: 0 min Stress: Stress Concern Present (07/22/2023) Received from [facility] [employer] - Occupational Stress Questionnaire Feeling of Stress : Very much Social Connections: Moderately Isolated (07/22/2023) Received from [facility] Social Connection and Isolation Panel [NHANES] Frequency of Communication with Friends and Family: More than three times a week Frequency of Social Gatherings with Friends and Family: Twice a week Attends Yarsani Services: Never Active Member of Clubs or Organizations: No Attends Club or Organization Meetings: Never Marital Status: Interpersonal Safety: Unknown (10/03/2023) Received from [facility] [place] Safety & Environment Fear of Current or Ex-Partner: Not on file Emotionally Abused: Not on file Physically Abused: Not on file Sexually Abused: Not on file Physically or Sexually Abused: Not on file Housing Instability: Low Risk (07/22/2023) Received from [facility] Housing Stability Vital Sign Unable to [...] Cannon PA-C 01/27/25 1115 documented in this encounterKettering Health HamiltonDreamscape Blue [id number] Instructions* Patient Instructions* Noa Anderson CNA - [...] the nearest emergency room. documented in this encounterFulton [facility]06-10-2025 History of Present illness Narrative* ALVARO DE [...] (ANTARA) 43 mg, Oral, Daily with breakfast Kpubfquwhbb-Bhbdekggo-Dtzxvn (Trelegy Ellipta) 100-62.5-25 MCG/ACT aerosol powder 1 [...] HISTORY Past Medical History: Diagnosis Date Alcoholism ([facility]) ( quit drinking 25 years ago) Anxiety and depression ([facility]) Bronchitis Chicken pox CKD (chronic kidney disease), symptom management only, stage 4 (severe) ([facility]) Claudication of calf muscles ([facility]) COPD (chronic obstructive pulmonary disease) ([facility]) Coronary artery disease ([facility]) Depression with anxiety GERD (gastroesophageal reflux disease) Heart disease High blood pressure ([facility]) High cholesterol ([facility]) History of medical problems Hernia History of migraine headaches History of psychiatric care Kidney disease Lung cancer ([facility]) JITENDRA (obstructive sleep apnea) Peripheral vascular disease ([facility]) Umbilical hernia URTI (infection of the upper [...] H/O: lung cancer EDITH (generalized anxiety disorder) ([facility]) Current meds: wellbutrin, buspar, sertraline and olanzapine [...] mgmt Trial prednisone taper documented in this [facility]06-10-2025 Instructions* Patient Instructions* Noa Watson NP - 01/19/2025 1:00 PM EDT Pain mgmt documented in this [facility]04-10-2025 History of Present illness Narrative* Noa Watson [...] and right eye in two weeks * Noa Watson NP - 11/19/2024 1:00 PM [...] (ANTARA) 43 mg, Oral, Daily with breakfast Cyegszoihbu-Bznsdmwdb-Untgmd (Trelegy Ellipta) 100-62.5-25 MCG/ACT aerosol powder 1 [...] HISTORY Past Medical History: Diagnosis Date Alcoholism ([facility]) ( quit drinking 25 years ago) Anxiety and depression ([facility]) Bronchitis Chicken pox CKD (chronic kidney disease), symptom management only, stage 4 (severe) ([facility]) Claudication of calf muscles ([facility]) COPD (chronic obstructive pulmonary disease) ([facility]) Coronary artery disease ([facility]) Depression with anxiety GERD (gastroesophageal reflux disease) Heart disease High blood pressure ([facility]) High cholesterol ([facility]) History of medical problems Hernia History of migraine headaches History of psychiatric care Kidney disease Lung cancer ([facility]) JITENDRA (obstructive sleep apnea) Peripheral vascular disease ([facility]) Umbilical hernia URTI (infection of the upper [...] Therapy Chronic kidney disease, stage 4 (severe) ([facility]) Continue with Nephrology Check labs yearly and prn EDITH (generalized anxiety disorder) ([facility]) Current meds: wellbutrin, buspar, sertraline Pt's daughter is a [employer] RESIST COATER DEVELOPER, I have given daughter present today options for addressing anxiety: Buspar TID, olanzapine at 2.5mg or quetiapine She will talk with sister and go from there Primary hypertension ([facility]) Please check blood pressure daily and record [...] AM EDTAssociated Problem(s): EDITH (generalized anxiety disorder) ([facility]) Current meds: wellbutrin, buspar, sertraline Pt's daughter is a [employer] RESIST COATER DEVELOPER, I have given daughter present today options for addressing anxiety: Buspar TID, olanzapine at 2.5mg or quetiapine She will talk with sister and go from there * Noa Watson NP - 11/19/2024 7:01 AM EDTAssociated Problem(s): Chronic kidney disease, stage 4 (severe) ([facility]) Continue with Nephrology Check labs yearly and [...] AM EDTAssociated Problem(s): Coronary artery disease involving buckland coronary artery 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 pectoris (CMS/HCC) Established with [facility] Cardiology Current meds: asa, amlodipine, statin, plavix, imdur, gaby, b kelsy, and prn nitro * Noa Watson NP - 11/19/2024 6:59 AM EDTAssociated Problem(s): Chronic obstructive pulmonary disease, unspecified Is prescribed trelegy inhaler documented in this [facility]04-10-2025 Instructions* Patient Instructions* Noa Watson NP - 11/19/2024 1:00 PM EDT Anxiety; we could try increase buspirone to 15mg three times daily Or consider adding olanzapine at 2.5mg at bed time ??low dose of quetiapine like 25mg at bedtime I will order PT and speech therapy at [facility] Neck: try stretching exercises, baclofen 10mg pill at bedtime as needed for muscle spasms documented in this [facility]03-18-2025 Evaluation note* Diagnosis Onset Date Resolution Status [...] through stage 4 chronic kiacuteJune 2024 4:22pm [facility] Work Phone: [phone]) 109-286703-04-2025 [facility] Cardiology Clinic Note Chief Complaint: Patient here [...] occluded right coronary artery. 2. Severe 3-vessel buckland coronary artery disease. 3. Patent left internal [...] Laboratory Report FINAL IMPRESSIONS: 1. Severe 3-vessel buckland coronary artery disease. 2. A 2/3 bypass grafts patent; the radial artery graft to the posterior descending artery is occluded. 3. Severe, heavily calcific lesion of the right common femoral artery; this is a new angiographic finding. Assessment: Coronary a (more content not included)...[facility] 10-12-2024 Instructions* Patient Instructions* Eun Trent, - 10/12/2024 11:31 AM EST Please do physical therapy and speech therapy. Please follow-up with your sleep apnea doctor about a better mask as this can help memory. Follow-up in six months. He and his family may benefit from the following community resources: [facility] Agencies on Aging -- , https://aging.[place].gov/about-us/who-we-are/tdph-hyuwxspv-pb-aging Visit your local Senior Center to participate in stimulating activities and socialize with others -https://www.[employer].org/zjeq45_xuct_wtvxsa_dvuimxd.htm He can use strategies to help optimize [...] for Neurodegenerative Delay (MIND) diet, is recommended. 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 Re-evaluation in approximately 18-24 months (or as needed). documented in this encounterUniversity Hospitals Ahuja Medical Center03-03-2025 NoteHNO ID: [id number] Author: MANDEEP LATASHA, EUN, DO Service: ? Author Type: Physician Type: Progress Notes Filed: 10/12/2024 14:47 Note Text: [facility] General Neurology Follow up/ Established patient visit Individuals who were included in, or assisted with the encounter were: Samir Castillo Eun Black, Chief Complaint/Issues: Samir Castillo is a 69 year old male seen in the [facility] for General Neurology for: Memory loss [...] here for follow-up of (more content not included)...[facility]03-03-2025 History of Present illness Narrative* Eun Trent DO - 10/12/2024 11:28 AM EST Images from the original note were not included. [facility] General Neurology Follow up/ Established patient visit Individuals who were included in, or assisted with the encounter were: Samir Castillo Eun Black DO Chief Complaint/Issues: Samir Castillo is a 69 year old male seen in the [facility] for General Neurology for: Memory loss [...] 1/2 TABLETS BY MOUTH EVERY DAY omega 8-api-lps-fish oil (FISH OIL) 100-160-1,000 mg cap Take [...] which included preparing to see the patient, [id number] patient care, completing clinical documentation, obtaining and/or [...] 70 (Recommend sleep study) documented in this encounterUniversity Hospitals Ahuja Medical Center03-03-2025 NoteHNO ID: [id number] Author: SANTIAGO JAY MA Service: ? Author Type: Corking Machine Operator Type: Progress Notes Filed: 10/12/2024 14:47 Note [...] Sleep Apnea Probability Score: 70 (Recommend sleep study)[facility]02-27-2025 History of Present illness Narrative* [...] no compliance problems. Hypertensive end-organ damage includes CAD/WA. Heart Problem This is a chronic problem. [...] (ANTARA) 43 mg, Oral, Daily with breakfast Bosjfxhdjaq-Vicvfmsku-Qrbutb (Trelegy Ellipta) 100-62.5-25 MCG/ACT aerosol powder 1 [...] HISTORY Past Medical History: Diagnosis Date Alcoholism ([facility]) ( quit drinking 25 years ago) Anxiety and depression ([facility]) Bronchitis Chicken pox CKD (chronic kidney disease), symptom management only, stage 4 (severe) ([facility]/HCC) Claudication of calf muscles ([facility]/HCC) COPD (chronic obstructive pulmonary disease) (CMS/HCC) Coronary artery disease ([facility]/HCC) Depression with anxiety GERD (gastroesophageal reflux disease) Heart disease High blood pressure (CMS/HCC) High cholesterol ([facility]) History of medical problems Hernia History of migraine headaches History of psychiatric care Kidney disease Lung cancer (CMS/HCC) JITENDRA (obstructive sleep apnea) Peripheral vascular disease ([facility]/HCC) Umbilical hernia URTI (infection of the upper [...] and neuropsych testing Coronary artery disease involving buckland coronary artery 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 pectoris ([facility]) - Primary Current meds: plavix, amlodipine, statin, b kelsy, nitroglycerin prn No acute symptoms, cont with [facility] Cardiology Relevant Medications clopidogrel (Plavix) 75 MG tablet isosorbide mononitrate ER (Imdur) 60 MG 24 hr tablet metoprolol tartrate (Lopressor) 50 MG tablet Mixed hyperlipidemia ([facility]) On statin and fenofibrate Check labs yearly and prn dose changes Relevant Medications atorvastatin (Lipitor) 80 MG tablet fenofibrate micronized (Antara) 43 MG capsule Chronic kidney disease, stage 4 (severe) ([facility]) Continue with Nephrology Gastroesophageal reflux disease without esophagitis Recommendations: freq small meals, nothing to eat or drink at least 2 hours prior to bed, limit caffeine, alcohol, as well as spicy foods Meds to limit or avoid if possible: NSAIDS Elevate HOB if possible Current med: pepcid Relevant Medications famotidine (Pepcid) 20 MG tablet EDITH (generalized anxiety disorder) ([facility]) Current meds: wellbutrin XL, buspar, sertraline, and trazodone EDITH 7=4 Had recent neuropsych testing has fu appt in a few weeks Relevant Medications sertraline (Zoloft) 100 MG tablet traZODone (Desyrel) 100 MG tablet Chronic obstructive pulmonary disease, unspecified ([facility]) Current meds: albuterol, trelegy Cannot afford trelegy, but does help breathing #2 samples trelegy: 100/25, XM5N, exp 01/04 Recurrent major depressive disorder, in full remission ([facility]) Current med: wellbutrin, sertralin, and trazodone PHQ 9=9 Primary hypertension ([facility]) Please check blood pressure daily and record [...] Recurrent major depression in partial remission (HCC) ([facility]) Relevant Medications buPROPion XL (Wellbutrin XL) 300 MG 24 hr tablet busPIRone (Buspar) 15 MG tablet sertraline (Zoloft) 100 MG tablet traZODone (Desyrel) 100 MG tablet * Noa Watson NP - 10/08/2024 7:12 AM ESTAssociated Problem(s): Recurrent major depressive disorder, in full remission ([facility]) Current med: wellbutrin, sertralin, and trazodone PHQ 9=9 * Noa Watson NP - 10/08/2024 7:11 AM ESTAssociated Problem(s): Mixed hyperlipidemia ([facility]) On statin and fenofibrate Check labs yearly and prn dose changes * Noa Watson NP - 10/08/2024 7:10 AM ESTAssociated Problem(s): EDITH (generalized anxiety disorder) ([facility]) Current meds: wellbutrin XL, buspar, sertraline, and [...] AM ESTAssociated Problem(s): Coronary artery disease involving buckland coronary artery 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 pectoris (CMS/HCC) Current meds: plavix, amlodipine, statin, b kelsy, nitroglycerin prn No acute symptoms, cont with [facility] Cardiology * Noa Watson NP - 10/08/2024 7:06 AM ESTAssociated Problem(s): Chronic obstructive pulmonary disease, unspecified (CMS/HCC) Current meds: albuterol, trelegy Cannot afford trelegy, but does help breathing #2 samples trelegy: 100/25, XM5N, exp 01/04 documented in this [facility]02-27-2025 Instructions* Patient Instructions* Noa Watson NP - 10/08/2024 1:40 PM EST No med dose changes documented in this [facility]01-28-2025 NoteHNO ID: [id number] Author: MISTY POLO, PhD Service: ? Author Type: Psychologist Type: Progress Notes Filed: 09/10/2024 16:35 Note Text: [facility] Department of Neurology Section of Neuropsychology Neuropsychological Evaluation Report CONFIDENTIAL Patient: Samir Castillo Date of : 1955 Referred by: Eun Black MD (Neurology) Education: 10 Handedness: R Language(s): Cypriot Date of Evaluation: 09/08/2024 Mr. Castillo is [...] no Problems with mother's /delivery: no Early TRIPLE AIR VALVE TESTER infection, high fever, significant childhood illness: no SCHOOL HISTORY: Years of education completed: 10; left school early because he did not like it. 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 Department of Neurology Section of Neuropsychology Neuropsychological Evaluation Report CONFIDENTIAL Patient: Samir Castillo Date of : 1955 Referred by: Eun Black MD (Neurology) Education: 10 Handedness: R Language(s): Cypriot Date of Evaluation: 09/08/2024 Mr. Castillo is [...] no Problems with mother's /delivery: no Early TRIPLE AIR VALVE TESTER infection, high fever, significant childhood illness: no SCHOOL HISTORY: Years of education completed: 10; left school early because he did not like it. 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 [place] non-verbal memory test, new learning was similarly [...] may benefit from the following community resources: [facility] [employer]gen[employer] on Aging -- , https://aging.[place].gov/about-us/who-we-are/vouc-yytxmrvd-ti-aging Visit your local Senior Center to participate in stimulating activities and socialize with others -https://www.care[place].org/ardk76_avmt_kvxewb_lpjsgvn.htm He can use strategies to help optimize [...] for Neurodegenerative Delay (MIND) diet, is recommended. 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 Re-evaluation in approximately 18-24 months (or as needed). These results have not been reviewed with the patient, but he will be provided access to this note via [employer]. It has been a pleasure to participate in his care. Please feel free to contact me if you have any questions regarding this report or my recommendations. Misty Polo, PhD, ABPP-CN Board Certified Clinical Neuropsychologist [facility] [place] The purpose of this evaluation was explained [...] = 2 hours Neuropsychological test administration/scoring by police specialist = 4 hours TESTS ADMINISTERED: Waite Anxiety Inventory, Waite Depression Inventory-2, Mas Judgment of Line Orientation (Form H), [place] Naming Test-2, Brief Visuospatial Memory Test- Revised (Form 2), Clinical Interview, Jessie Chowdhury Executive Function System (Color-Word Interference), Castro Verbal Learning Test-Revised (Form 2), Language Screen, Performance Validity Testing, Gregory Osterrieth Complex Figure Test (Miles System, copy), [place] Making Test (Parts A & B), Verbal Fluency (CFL, Animals/Fruits/Vegetables), Veena Adult Intelligence Scale-IV (Digit Span, Coding, Matrix Reasoning), Veena Memory Scale-IV (Logical Memory), [place] Card Sorting Test - 128 documented in this encounterUniversity Hospitals Ahuja Medical Center11-11-2024 History of Present illness Narrative* [...] kidney disease) stage 4, GFR 15-29 ml/min (CMS/[facility]) Following with Nephrology. Avoid nephrotoxic agents. Continue [...] Addressed This Visit Coronary artery disease involving buckland coronary artery 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 pectoris ([facility]) Relevant Medications nitroglycerin (Nitrostat) 0.4 MG SL tablet Other hyperlipidemia ([facility]) Currently taking Atorvastatin 80mg Denies any myalgias. Continue current regimen. CKD (chronic kidney disease) stage 4, GFR 15-29 ml/min ([facility]) Following with Nephrology. Avoid nephrotoxic agents. Continue to monitor. Primary hypertension ([facility]) - Primary Currently taking amlodipine Imdur Metoprolol [...] referral to Physical Therapy documented in this encounterMissouri Rehabilitation [id number] Instructions* Patient Instructions* Jayy Coronado NP - [...] TO THE EMERGENCY ROOM!!! documented in this encounterMissouri Rehabilitation [id number] History of Present illness Narrative* Claire Vilchis [...] PATIENT PRESENTS WITH AN IMPLANTABLE OR ATTACHED PHOTOGRAPHER: No RADIOLOGY DEPARTMENT: CT; Exam(s) Completed: Brain PERIPHERAL IV DATA: Not applicable SIGNED BY: KORY Bolivar May 12, 2024 8:35 AM documented in this encounterUniversity Hospitals Ahuja Medical Center10-01-2024 NoteHNO ID: [id number] Author: CLAIRE VILCHIS CT Service: ? Author Type: Call Person Type: Progress Notes Filed: 05/12/2024 08:35 Note [...] PATIENT PRESENTS WITH AN IMPLANTABLE OR ATTACHED PHOTOGRAPHER: No RADIOLOGY DEPARTMENT: CT; Exam(s) Completed: Brain PERIPHERAL IV DATA: Not applicable SIGNED BY: KORY Bolivar May 12, 2024 8:35 [facility]09-23-2024 Instructions* Patient Instructions* Eun Trent DO - 05/04/2024 10:[address] scan of brain Physical therapy Follow-up after neuropsych Please do not climb ladders or do other activities for high fall risk. documented in this encounterUniversity Hospitals Ahuja Medical Center09-23-2024 History of Present illness Narrative* Eun Trent DO - 05/04/2024 9:30 AM EDT Images from the original note were not included. [facility] Follow up/ Established patient visit Individuals who were included in, or assisted with the encounter were: Samir Castillo Eun Black DO Chief Complaint/Issues: Samir Castillo is a 69 year old male seen in the [facility] for: Memory loss [...] over medications. 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 MOCA December 2021 [...] 1/2 TABLETS BY MOUTH EVERY DAY omega 3-cok-pjn-fish oil (FISH OIL) 100-160-1,000 mg cap Take [...] which included preparing to see the patient, lvac-jn-nopz patient care, completing clinical documentation, obtaining and/or [...] population and warrants attention documented in this encounterUniversity Hospitals Ahuja Medical Center09-23-2024 NoteHNO ID: [id number] Author: EUN TRENT DO Service: ? Author Type: Physician Type: Progress Notes Filed: 05/04/2024 22:17 Note Text: [facility] Follow up/ Established patient visit Individuals who were included in, or assisted with the encounter were: Samir Castillo Eun Black DO Chief Complaint/Issues: Samir Castillo is a 69 year old male seen in the [facility] for: Memory loss [...] over medications. 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 MOCA December 2021 [...] 50 mg tablet,extended release (more content not included)...[facility]02-08-2024 History of Present illness Narrative* Shaikh Cornelio MD - 09/19/2023 5:35 PM ESTAssociated Problem(s): EDITH (generalized anxiety disorder) ([facility]) Improved now. C/w current regimen. * Shaikh Cornelio MD - 09/19/2023 5:35 PM ESTAssociated Problem(s): Other hyperlipidemia (CMS/HCC) Check Lipid panel. * Shaikh Cornelio MD - 09/19/2023 5:35 PM ESTAssociated Problem(s): Recurrent major depression in partial remission (HCC) ([facility]) Symptoms improved and well controlled since Zoloft [...] kidney disease) stage 4, GFR 15-29 ml/min ([facility]) Has an appointment with Nephrology. Avoid NSAIDS. C/w current regimen. * Shaikh Cornelio MD - 09/19/2023 5:32 PM ESTAssociated Problem(s): Coronary artery disease involving buckland coronary artery 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 pectoris ([facility]) S/p CABG. On ASA, BB, Imdur, plavix, statin Denies CP, SOB, palpitations. Following [facility] cardiology. * Shaikh Cornelio MD [...] in the morning. Take with meals. [DISCONTINUED] Noolnjpxafi-Ooywhoreg-Sdwpvz (Trelegy Ellipta) 100-62.5-25 MCG/ACT aerosol powder Inhale [...] Recurrent major depression in partial remission (HCC) ([facility]) Symptoms improved and well controlled since Zoloft [...] Comprehensive metabolic panel Coronary artery disease involving buckland coronary artery 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 pectoris ([facility]) S/p CABG. On ASA, BB, Imdur, plavix, statin Denies CP, SOB, palpitations. Following [facility] cardiology. Relevant Medications aspirin 81 MG EC tablet isosorbide mononitrate ER (Imdur) 60 MG 24 hr tablet metoprolol tartrate (Lopressor) 50 MG tablet clopidogrel (Plavix) 75 MG tablet Other Relevant Orders CBC and differential Comprehensive metabolic panel Other hyperlipidemia ([facility]) Check Lipid panel. Relevant Medications atorvastatin (Lipitor) 80 MG tablet fenofibrate micronized (Antara) 43 MG capsule Other Relevant Orders Lipid panel CKD (chronic kidney disease) stage 4, GFR 15-29 ml/min ([facility]) Has an appointment with Nephrology. Avoid NSAIDS. C/w current regimen. Relevant Orders CBC and differential Comprehensive metabolic panel Protein, urine, random Creatinine, urine, random Gastroesophageal reflux disease without esophagitis Relevant Medications famotidine (Pepcid) 20 MG tablet EDITH (generalized anxiety disorder) ([facility]) Improved now. C/w current regimen. Relevant Medications sertraline (Zoloft) 100 MG tablet traZODone (Desyrel) 100 MG tablet Traumatic complete tear of left rotator cuff - Primary Noted on MRI - following Orthopedics. Patient has a follow up appointment next week and it appears that he will likely need surgery for it. Other Visit Diagnoses Primary hypertension ([facility]) Relevant Medications amLODIPine (Norvasc) 5 MG tablet isosorbide mononitrate ER (Imdur) 60 MG 24 hr tablet metoprolol tartrate (Lopressor) 50 MG tablet Other Relevant Orders CBC and differential Comprehensive metabolic panel Chronic obstructive pulmonary disease, unspecified COPD type ([facility]) Relevant Medications Xtvymiaaqqi-Rmihibhpw-Uiuxii (Trelegy Ellipta) 100-62.5-25 MCG/ACT aerosol powder No follow-ups on file. documented in this encounterMissouri Rehabilitation [id number] Instructions* Patient Instructions* Eun Kaufman DO - 08/15/2022 4:17 PM EST Please work with your doctor on the sleep apnea and psychiatrist for depression. Follow-up in 6 months. documented in this encounterUniversity Hospitals Ahuja Medical Center01-04-2023 History of Present illness Narrative* Eun Kaufman DO - 08/15/2022 3:47 PM EST Images from the original note were not included. [facility] Follow up/ Established patient visit Individuals who were included in, or assisted with the encounter were: Samir Castillo Eun Kaufman DO Chief Complaint/Issues: Samir Castillo is a 67 year old male seen in the [facility] for: Follow-up Most [...] AND 1/2 TABLETS BY MOUTH EVERY DAY Chljjceaysaoa-Motjffsh-Dqqjzs (MULTIVITAMIN 50 PLUS) tab Take 1 tablet by mouth once daily. omega 4-xjv-emc-fish oil (FISH OIL) 100-160-1,000 mg cap Take [...] which included preparing to see the patient, snwc-zl-zmdq patient care, completing clinical documentation, obtaining and/or reviewing separately obtained history, performing a medically appropriate examination, counseling and educating the pat ient/family/caregiver, and ordering medications, tests, or procedures. Eun Kaufman DO documented in this encounterUniversity Hospitals Ahuja Medical Center11-29-2022 Evaluation note* Encounter Date Diagnosis [...] mmol/L. 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 documented in this encounterUniversity Hospitals Ahuja Medical Center08-30-2022 History of Present illness Narrative* Eun Kaufman DO - 04/10/2022 10:11 AM EDT Images from the original note were not included. [facility] New Patient Evaluation Consulting Provider: Jessie Bright [id number] [facility] [id number] Individuals who were included in, or assisted with the encounter were: Samir Castillo Eun Kaufman DO Chief Complaint/Issues: Samir Castillo is a 66 year old male seen in the [facility] for: Memory HPI: [...] notices problems with both short term and ad terminal makeup operator memory Language: yes, word [...] AND 1/2 TABLETS BY MOUTH EVERY DAY Slhscpldljyaa-Usuanyjr-Hoskcg (MULTIVITAMIN 50 PLUS) tab Take 1 tablet by mouth once daily. omega 7-mod-dlk-fish oil (FISH OIL) 100-160-1,000 mg cap Take [...] which included preparing to see the patient, utqu-lw-deww patient care, completing clinical documentation, obtaining and/or reviewing separately obtained history, performing a medically appropriate examination, and counseling and educating the patient/family/caregiver. Eun Kaufman DO documented in this encounterUniversity Hospitals Ahuja Medical Center08-02-2022 Evaluation note* Encounter Date Diagnosis Assessment Notes Treatment Notes Treatment Clinical Notes Mar, Depression, major, recurrent, mo derate (ICD-10 - F33.1) [facility] Other 07-25-2022 Evaluation note* Encounter Date Diagnosis Assessment Notes Treatment Notes Treatment Clinical Notes Feb, Depression, major, recurrent, mo derate (ICD-10 - F33.1) [facility] Other 07-19-2022 Evaluation note* Encounter Date Diagnosis [...] Feb,leep apnea, unspecified type (ICD-10 - G47.30) [facility] Other 07-01-2022 Miscellaneous Notes* Telephone Encounter - [...] Dr. Roche Message text documented in this encounterUniversity Hospitals Ahuja Medical Center07-01-2022 History of Present illness Narrative* Brayan Trent CRT - 02/09/2022 10:41 AM EDT PULM FUNCTION SMARTBLOCK: Provider: Prince Aby MD Spirometry w/BD: 1 System: MC9 - [id number] documented in this encounterUniversity Hospitals Ahuja Medical Center06-30-2022 History of Present illness Narrative* [...] 08, 2022 4:21 PM documented in this encounterUniversity Hospitals Ahuja Medical Center06-20-2022 Evaluation note* Encounter Date Diagnosis [...] relief. Also reports that he saw his clinical trials nurse recently who does not think that his shortness of breath is related to his heart. He did have an appointment with [facility] but has since decided to see pulmonology in [place]. Given his PFT and CT results I [...] with Dr. Hurtado at their upcoming appointment. [facility] Other 05-27-2022 Evaluation note* Encounter Date Diagnosis Assessment Notes Treatment Notes Treatment Clinical Notes December, Obstructive lung disease (ICD-10 - J44.9) December,ulmonary nodule (ICD-10 - R91.1) [facility] Other 05-23-2022 Evaluation note* Encounter Date Diagnosis Assessment Notes Treatment Notes Treatment Clinical Notes December, Shortness of breath (ICD-10 - R0 6.02) [facility] Other 05-17-2022 Evaluation note* Encounter Date Diagnosis [...] next month or so we will recheck. [facility] Other 05-13-2022 History of Present illness Narrative* Jessie Bright MD - 12/22/2021 8:41 AM EDT Images from the original note were not included. [facility] New Patient Evaluation Consulting Provider: SELF Individuals who were included in, or assisted with the encounter were: Samir Olmedokaren Bright MD Chief Complaint/Issues: Samir Castillo is a 66 year old male seen in the [facility] for: 1. 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 omega 8-owg-dal-fish oil (FISH OIL) 100-160-1,000 mg cap Take [...] which included preparing to see the patient, ecgn-kg-fkik patient care, completing clinical documentation and performing a medically appropriate examination. Jessie Bright MD documented in this encounterUniversity Hospitals Ahuja Medical Center05-09-2022 Evaluation note* Encounter Date Diagnosis Assessment Notes Treatment Notes Treatment Clinical Notes December, Depression, major, recurrent, mo derate (ICD-10 - F33.1) [facility] Other 10-12-2021 Evaluation note* Encounter Date Diagnosis [...] metoprolol. He follow-up with Dr. Rubio, his clinical trials nurse in [place]. He stated that his heart looks fine. [...] at home also runs between 140-150 systolic. Foster systolic blood pressure at home should be [...] Dr. Arellano for lipid profile. 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)- Primary Other persistent mental disorders due to conditions classified elsewhere Cognitive impairment, mild, so stated Mild cognitive impairment, so stated Depression, unspecified depression type documented in this encounter [facility] noteNo InformationNortNew [facility]ec[facility] Other Evaluation noteNoConemaugh [facility] Other Evaluation note* Diagnosis Cognitive impairment, mild, so stated- Primary Mild cognitive impairment, so stated documented in this encounter [facility] note* Diagnosis Shortness of breath- Primary documented in this encounter [facility] [place] [facility]* Diagnosis Cognitive impairment, mild, so stated Mild cognitive impairment, so stated 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) Other persistent mental disorders due to conditions classified elsewhere Depression, unspecified depression type documented in this encounter [facility] [place] [facility]* Diagnosis Shortness of breath documented in this encounter [facility] [place] [facility]* Diagnosis Recurrent major depression in partial remission (HCC)- Primary Major depressive disorder, recurrent episode, in partial or unspecified remission MCI (mild cognitive impairment) Mild cognitive impairment, so stated documented in this encounter [facility] [place] noteNo assessment information availableC[facility] Work Phone: Evaluation note* Diagnosis MCI (mild cognitive impairment)- Primary Mild cognitive impairment, so stated documented in this encounter [facility] [place] noteNort [employer] Other Evaluation note* Diagnosis Traumatic complete tear of left rotator cuff, subsequent encounter- Primary Recurrent major depression in partial remission (HCC) ([facility]/HCC) Major depressive disorder, recurrent episode, in partial or unspecified remission Other hyperlipidemia ([facility]/HCC) EDITH (generalized anxiety disorder) ([facility]) Generalized anxiety disorder CKD (chronic kidney disease) stage 4, GFR 15-29 ml/min ([facility]/HCC) Chronic kidney disease, Stage IV (severe) Gastroesophageal reflux disease without esophagitis Esophageal reflux Coronary artery disease involving buckland coronary artery 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 pectoris ([facility]) Primary hypertension ([facility]) Unspecified essential hypertension Chronic obstructive pulmonary disease, unspecified COPD type ([facility]) documented in this encounter [facility] CenterEvalunem[facility] [place] note* Diagnosis Onset Date Resolution Status Anemia acuteCAD (coronary artery disease) of artery bypass graftacuteChronic kidney disease, stage 0xnvwfxHhfdjlhoenxsjaupbVfpxfyyryumzoyrhfOAF-[id number] [facility] Work Phone: Evaluation note* Diagnosis Dyspnea and respiratory abnormalities- Primary Other dyspnea and respiratory abnormality Centrilobular emphysema (HCC) Other emphysema Class 1 obesity due to excess calories with serious comorbidity and body mass index (BMI) of 32.0 to 32.9 in adult Sleep-disordered breathing Other sleep disturbances Memory loss- Primary Abnormality of gait documented in this encounter [facility] CenterEvalunemours [facility] [place] note* Diagnosis Dyspnea and respiratory abnormalities- Primary Other dyspnea and respiratory abnormality Centrilobular emphysema (HCC) Other emphysema Class 1 obesity due to excess calories with serious comorbidity and body mass index (BMI) of 32.0 to 32.9 in adult Sleep-disordered breathing Other sleep disturbances Memory loss documented in this encounter [facility] [place] [facility]* Diagnosis Traumatic complete tear of left rotator cuff, subsequent encounter- Primary Recurrent major depression in partial remission (HCC) ([facility]) Major depressive disorder, recurrent episode, in partial or unspecified remission Other hyperlipidemia ([facility]/HCC) EDITH (generalized anxiety disorder) ([facility]) Generalized anxiety disorder CKD (chronic kidney disease) stage 4, GFR 15-29 ml/min ([facility]/HCC) Chronic kidney disease, Stage IV (severe) Gastroesophageal reflux disease without esophagitis Esophageal reflux Coronary artery disease involving buckland coronary artery 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 pectoris ([facility]) Primary hypertension ([facility]) Unspecified essential hypertension Chronic obstructive pulmonary disease, unspecified COPD type ([facility]) Chronic obstructive pulmonary disease, unspecified COPD type ([facility])- Primary Coronary artery disease involving buckland coronary artery 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 pectoris ([facility]) CKD (chronic kidney disease) stage 4, GFR 15-29 ml/min ([facility]/HCC) Chronic kidney disease, Stage IV (severe) Gastroesophageal reflux disease without esophagitis Esophageal reflux Recurrent major depressive disorder, in full remission ([facility]) Other hyperlipidemia ([facility]/HCC) EDITH (generalized anxiety disorder) ([facility]) Generalized anxiety disorder Recurrent major depression in partial remission (HCC) ([facility]) Major depressive disorder, recurrent episode, in partial or unspecified remission Primary hypertension ([facility]/HCC) Unspecified essential hypertension Primary hypertension ([facility])- Primary Unspecified essential hypertension Other hyperlipidemia ([facility]/HCC) Coronary artery disease involving buck[place] coronary artery 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 pectoris ([facility]/HCC) Frequent falls Functional gait abnormality CKD (chronic kidney disease) stage 4, GFR 15-29 ml/min ([facility]/HCC) Chronic kidney disease, Stage IV (severe) [facility] Traumatic complete tear of left rotator cuff, subsequent encounter- Primary Recurrent major depression in partial remission (HCC) ([facility]) Major depressive disorder, recurrent episode, in partial or unspecified remission Other hyperlipidemia ([facility]) EDITH (generalized anxiety disorder) ([facility]) Generalized anxiety disorder CKD (chronic kidney disease) stage 4, GFR 15-29 ml/min ([facility]) Chronic kidney disease, Stage IV (severe) Gastroesophageal reflux disease without esophagitis Esophageal reflux Coronary artery disease involving buck[place] coronary artery 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 pectoris ([facility]) Primary hypertension ([facility]) Unspecified essential hypertension Chronic obstructive pulmonary disease, unspecified COPD type ([facility]) Chronic obstructive pulmonary disease, unspecified COPD type ([facility])- Primary Coronary artery disease involving buck[place] coronary artery 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 pectoris ([facility]) CKD (chronic kidney disease) stage 4, GFR 15-29 ml/min ([facility]) Chronic kidney disease, Stage IV (severe) Gastroesophageal reflux disease without esophagitis Esophageal reflux Recurrent major depressive disorder, in full remission ([facility]) Other hyperlipidemia ([facility]) EDITH (generalized anxiety disorder) ([facility]) Generalized anxiety disorder Recurrent major depression in partial remission (HCC) ([place]) Major depressive disorder, recurrent episode, in partial or unspecified remission Primary hypertension ([facility]) Unspecified essential hypertension Primary hypertension ([facility])- Primary Unspecified essential hypertension Other hyperlipidemia ([facility]) Coronary artery disease involving [place] coronary artery 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 pectoris ([facility]) Frequent falls Functional gait abnormality CKD (chronic kidney disease) stage 4, GFR 15-29 ml/min ([facility]) Chronic kidney disease, Stage IV (severe) Recurrent major depression in partial remission (HCC) ([facility]) Major depressive disorder, recurrent episode, in partial or unspecified remission documented in this encounter [facility]* Diagnosis Gastroesophageal reflux disease without esophagitis Esophageal reflux Recurrent major depression in partial remission (HCC) ([facility]) Major depressive disorder, recurrent episode, in partial or unspecified remission documented in this encounter [facility] Healthcare[facility]* Diagnosis Dyspnea and respiratory [...] type, unspecified whether angina present, unspecified whether buck[place] or transplanted heart Complaints of memory disturbance Memory loss [facility] Diagnosis Traumatic complete tear of left rotator cuff, subsequent encounter- Primary Recurrent major depression in partial remission (HCC) ([facility]) Major depressive disorder, recurrent episode, in partial or unspecified remission Other hyperlipidemia ([facility]) EDITH (generalized anxiety disorder) ([facility]) Generalized anxiety disorder CKD (chronic kidney disease) stage 4, GFR 15-29 ml/min ([facility]) Chronic kidney disease, Stage IV (severe) Gastroesophageal reflux disease without esophagitis Esophageal reflux Coronary artery disease involving [place] coronary artery 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 pectoris ([facility]) Primary hypertension ([facility]) Unspecified essential hypertension Chronic obstructive pulmonary disease, unspecified COPD type ([facility]) Chronic obstructive pulmonary disease, unspecified COPD type ([facility])- Primary Coronary artery disease involving [place] coronary artery 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 pectoris ([facility]) CKD (chronic kidney disease) stage 4, GFR 15-29 ml/min ([facility]) Chronic kidney disease, Stage IV (severe) Gastroesophageal reflux disease without esophagitis Esophageal reflux Recurrent major depressive disorder, in full remission ([facility]) Other hyperlipidemia ([facility]) EDITH (generalized anxiety disorder) ([facility] Generalized anxiety disorder Recurrent major depression in partial remission (HCC) ([facility]) Major depressive disorder, recurrent episode, in partial or unspecified remission Primary hypertension ([facility] Unspecified essential hypertension Primary hypertension ([place])- Primary Unspecified essential hypertension Other hyperlipidemia ([facility]) Coronary artery disease involving [place] coronary artery 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 pectoris ([facility]) Frequent falls Functional gait abnormality CKD (chronic kidney disease) stage 4, GFR 15-29 ml/min ([facility]) Chronic kidney disease, Stage IV (severe) Primary hypertension ([facility])- Primary Unspecified essential hypertension Chronic obstructive pulmonary disease, unspecified COPD type ([facility]) Chronic kidney disease, stage 4 (severe) ([facility]) Coronary artery disease involving [place] coronary artery 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 pectoris ([facility]) Gastroesophageal reflux disease without esophagitis Esophageal reflux EDITH (generalized anxiety disorder) ([facility]) Generalized anxiety disorder Recurrent major depressive disorder, in full remission (CMS/HCC) Mixed hyperlipidemia ([facility]/HCC) Mixed hyperlipidemia MCI (mild cognitive impairment) Mild cognitive impairment, so stated Other hyperlipidemia ([facility]) Recurrent major depression in partial remission (HCC) ([facility]) Major depressive disorder, recurrent episode, in partial or unspecified remission documented in this encounter [facility]* Diagnosis Dyspnea and respiratory abnormalities- Primary Other dyspnea and respiratory abnormality Centrilobular emphysema (HCC) Other emphysema Class 1 obesity due to excess calories with serious comorbidity and body mass index (BMI) of 32.0 to 32.9 in adult Sleep-disordered breathing Other sleep disturbances Gait abnormality- Primary Abnormality of gait Memory loss Neck pain Cervicalgia [facility] Diagnosis Onset Date Resolution Status Admit Date Anemia acuteMarch 2024 3:58pmCAD (coronary artery disease) of artery bypass graft acuteMarch 2024 3:58pmChronic kidney disease, stage 3bacuteMar 2024 3:58pmHyperkal[facility]acute[facility]:58pmHyperlipemiaacuteSt[facility] 3:58pmHypertensive chronic kidney disease with stage 1 through stage 4 [facility] 3:58pm [facility] Work Phone: Evaluation note* Diagnosis Traumatic complete tear of left rotator cuff, subsequent encounter- Primary Recurrent major depression in partial remission (HCC) ([facility]) Major depressive disorder, recurrent episode, in partial or unspecified remission Other hyperlipidemia EDITH (generalized anxiety disorder) ([facility]) Generalized anxiety disorder CKD (chronic kidney disease) stage 4, GFR 15-29 ml/min ([facility]) Chronic kidney disease, Stage IV (severe) Gastroesophageal reflux disease without esophagitis Esophageal reflux Coronary artery disease involving [place] coronary artery 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 pectoris ([facility]) Primary hypertension ([facility]) Unspecified essential hypertension Chronic obstructive pulmonary disease, unspecified COPD type ([facility]) Chronic obstructive pulmonary disease, unspecified COPD type ([facility])- Primary Coronary artery disease involving [place] coronary artery 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 pectoris ([facility]) CKD (chronic kidney disease) stage 4, GFR 15-29 ml/min ([facility]) Chronic kidney disease, Stage IV (severe) Gastroesophageal reflux disease without esophagitis Esophageal reflux Recurrent major depressive disorder, in full remission ([facility]) Other hyperlipidemia EDITH (generalized anxiety disorder) ([facility] Generalized anxiety disorder Recurrent major depression in partial remission (HCC) ([facility]) Major depressive disorder, recurrent episode, in partial or unspecified remission Primary hypertension ([facility] Unspecified essential hypertension Primary hypertension ([facility])- Primary Unspecified essential hypertension Other hyperlipidemia Coronary artery disease involving [place] coronary artery 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 pectoris ([facility]) Frequent falls Functional gait abnormality CKD (chronic kidney disease) stage 4, GFR 15-29 ml/min ([facility]) Chronic kidney disease, Stage IV (severe) Primary hypertension ([facility])- Primary Unspecified essential hypertension Chronic obstructive pulmonary disease, unspecified COPD type ([facility]) Chronic kidney disease, stage 4 (severe) ([facility]) Coronary artery disease involving [place] coronary artery 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 pectoris ([facility]) Gastroesophageal reflux disease without esophagitis Esophageal reflux EDITH (generalized anxiety disorder) ([facility]) Generalized anxiety disorder Recurrent major depressive disorder, in full remission ([facility]) Mixed hyperlipidemia ([facility]) Mixed hyperlipidemia MCI (mild cognitive impairment) Mild cognitive impairment, so stated Other hyperlipidemia Recurrent major depression in partial remission (HCC) ([facility]) Major depressive disorder, recurrent episode, in partial or unspecified remission Other hyperlipidemia EDITH (generalized anxiety disorder) ([facility]) Generalized anxiety disorder Recurrent major depression in partial remission (HCC) ([facility]) Major depressive disorder, recurrent episode, in partial or unspecified remission documented in this encounter [facility] HealthcareEvaluation note* Diagnosis Traumatic complete tear of left rotator cuff, subsequent encounter- Primary Recurrent major depression in partial remission (HCC) ([facility]) Major depressive disorder, recurrent episode, in partial or unspecified remission Other hyperlipidemia EDITH (generalized anxiety disorder) ([facility]) Generalized anxiety disorder CKD (chronic kidney disease) stage 4, GFR 15-29 ml/min ([facility]) Chronic kidney disease, Stage IV (severe) Gastroesophageal reflux disease without esophagitis Esophageal reflux Coronary artery disease involving [place] coronary artery 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 pectoris ([facility]) Primary hypertension ([facility]) Unspecified essential hypertension Chronic obstructive pulmonary disease, unspecified COPD type ([facility]) Chronic obstructive pulmonary disease, unspecified COPD type ([facility])- Primary Coronary artery disease involving [place] coronary artery 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 pectoris ([facility]) CKD (chronic kidney disease) stage 4, GFR 15-29 ml/min ([facility]) Chronic kidney disease, Stage IV (severe) Gastroesophageal reflux disease without esophagitis Esophageal reflux Recurrent major depressive disorder, in full remission ([facility]) Other hyperlipidemia EDITH (generalized anxiety disorder) ([facility] Generalized anxiety disorder Recurrent major depression in partial remission (HCC) ([facility]) Major depressive disorder, recurrent episode, in partial or unspecified remission Primary hypertension ([facility] Unspecified essential hypertension Primary hypertension ([facility])- Primary Unspecified essential hypertension Other hyperlipidemia Coronary artery disease involving [place] coronary artery 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 pectoris ([facility]) Frequent falls Functional gait abnormality CKD (chronic kidney disease) stage 4, GFR 15-29 ml/min ([facility]) Chronic kidney disease, Stage IV (severe) Primary hypertension ([facility])- Primary Unspecified essential hypertension Chronic obstructive pulmonary disease, unspecified COPD type ([facility]) Chronic kidney disease, stage 4 (severe) ([facility]) Coronary artery disease involving [place] coronary artery 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 pectoris ([facility] Gastroesophageal reflux disease without esophagitis Esophageal reflux EDITH (generalized anxiety disorder) ([facility]) Generalized anxiety disorder Recurrent major depressive disorder, in full remission ([facility]) Mixed hyperlipidemia ([facility]) Mixed hyperlipidemia MCI (mild cognitive impairment) Mild cognitive impairment, so stated Other hyperlipidemia Recurrent major depression in partial remission (HCC) ([facility]) Major depressive disorder, recurrent episode, in partial or unspecified remission Primary hypertension ([facility]) Unspecified essential hypertension Other hyperlipidemia Recurrent major depression in partial remission (HCC) ([facility]) Major depressive disorder, recurrent episode, in partial or unspecified remission Coronary artery disease involving [place] coronary artery 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 pectoris ([facility]) Gastroesophageal reflux disease without esophagitis Esophageal reflux EDITH (generalized anxiety disorder) ([facility]) Generalized anxiety disorder documented in this encounter [facility]* Diagnosis Traumatic complete tear of left rotator cuff, subsequent encounter- Primary Recurrent major depression in partial remission (HCC) ([facility]) Major depressive disorder, recurrent episode, in partial or unspecified remission Other hyperlipidemia EDITH (generalized anxiety disorder) ([facility]) Generalized anxiety disorder CKD (chronic kidney disease) stage 4, GFR 15-29 ml/min ([facility]) Chronic kidney disease, Stage IV (severe) Gastroesophageal reflux disease without esophagitis Esophageal reflux Coronary artery disease involving [place] coronary artery 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 pectoris ([facility]) Primary hypertension ([facility]) Unspecified essential hypertension Chronic obstructive pulmonary disease, unspecified COPD type ([facility]) Chronic obstructive pulmonary disease, unspecified COPD type ([facility])- Primary Coronary artery disease involving [place] coronary artery 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 pectoris ([facility]) CKD (chronic kidney disease) stage 4, GFR 15-29 ml/min ([facility]) Chronic kidney disease, Stage IV (severe) Gastroesophageal reflux disease without esophagitis Esophageal reflux Recurrent major depressive disorder, in full remission ([facility]) Other hyperlipidemia EDITH (generalized anxiety disorder) ([facility] Generalized anxiety disorder Recurrent major depression in partial remission (HCC) ([facility]) Major depressive disorder, recurrent episode, in partial or unspecified remission Primary hypertension ([facility] Unspecified essential hypertension Primary hypertension ([facility])- Primary Unspecified essential hypertension Other hyperlipidemia Coronary artery disease involving [place] coronary artery 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 pectoris ([facility]) Frequent falls Functional gait abnormality CKD (chronic kidney disease) stage 4, GFR 15-29 ml/min ([facility]) Chronic kidney disease, Stage IV (severe) Primary hypertension ([facility])- Primary Unspecified essential hypertension Chronic obstructive pulmonary disease, unspecified COPD type ([facility]) Chronic kidney disease, stage 4 (severe) ([facility]) Coronary artery disease involving [place] coronary artery 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 pectoris ([facility]) Gastroesophageal reflux disease without esophagitis Esophageal reflux EDITH (generalized anxiety disorder) ([facility]) Generalized anxiety disorder Recurrent major depressive disorder, in full remission ([facility]) Mixed hyperlipidemia ([facility]) Mixed hyperlipidemia MCI (mild cognitive impairment) Mild cognitive impairment, so stated Other hyperlipidemia Recurrent major depression in partial remission (HCC) ([facility]) Major depressive disorder, recurrent episode, in partial or unspecified remission Neck pain- Primary Cervicalgia Primary hypertension ([facility]) Unspecified essential hypertension Chronic kidney disease, stage 4 (severe) ([facility]) EDITH (generalized anxiety disorder) ([facility]) Generalized anxiety disorder Functional gait abnormality MCI (mild cognitive impairment) Mild cognitive impairment, so stated documented in this encounter [facility]* Diagnosis Traumatic complete tear of left rotator cuff, subsequent encounter- Primary Recurrent major depression in partial remission (HCC) ([place]) Major depressive disorder, recurrent episode, in partial or unspecified remission Other hyperlipidemia EDITH (generalized anxiety disorder) ([facility]) Generalized anxiety disorder CKD (chronic kidney disease) stage 4, GFR 15-29 ml/min ([facility]) Chronic kidney disease, Stage IV (severe) Gastroesophageal reflux disease without esophagitis Esophageal reflux Coronary artery disease involving [place] coronary artery 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 pectoris ([place]) Primary hypertension ([place]) Unspecified essential hypertension Chronic obstructive pulmonary disease, unspecified COPD type ([facility]) Chronic obstructive pulmonary disease, unspecified COPD type ([place])- Primary Coronary artery disease involving [place] coronary artery 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 pectoris ([facility]) CKD (chronic kidney disease) stage 4, GFR 15-29 ml/min ([facility]) Chronic kidney disease, Stage IV (severe) Gastroesophageal reflux disease without esophagitis Esophageal reflux Recurrent major depressive disorder, in full remission ([place]) Other hyperlipidemia EDITH (generalized anxiety disorder) ([place]) Generalized anxiety disorder Recurrent major depression in partial remission (HCC) ([place]) Major depressive disorder, recurrent episode, in partial or unspecified remission Primary hypertension ([facility]) Unspecified essential hypertension Primary hypertension ([place])- Primary Unspecified essential hypertension Other hyperlipidemia Coronary artery disease involving [place] coronary artery 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 pectoris ([facility]) Frequent falls Functional gait abnormality CKD (chronic kidney disease) stage 4, GFR 15-29 ml/min ([facility]) Chronic kidney disease, Stage IV (severe) Primary hypertension ([place])- Primary Unspecified essential hypertension Chronic obstructive pulmonary disease, unspecified COPD type ([facility]) Chronic kidney disease, stage 4 (severe) ([place]) Coronary artery disease involving [place] coronary artery 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 pectoris ([place]) Gastroesophageal reflux disease without esophagitis Esophageal reflux EDITH (generalized anxiety disorder) ([place]) Generalized anxiety disorder Recurrent major depressive disorder, in full remission ([facility]) Mixed hyperlipidemia ([facility]) Mixed hyperlipidemia MCI (mild cognitive impairment) Mild cognitive impairment, so stated Other hyperlipidemia Recurrent major depression in partial remission (HCC) ([place]) Major depressive disorder, recurrent episode, in partial or unspecified remission Neck pain- Primary Cervicalgia Primary hypertension ([facility]) Unspecified essential hypertension Chronic kidney disease, stage 4 (severe) ([facility]) EDITH (generalized anxiety disorder) ([facility]) Generalized anxiety disorder Functional gait abnormality MCI (mild cognitive impairment) Mild cognitive impairment, so stated EDITH (generalized anxiety disorder) ([facility])- Primary Generalized anxiety disorder documented in this encounter [facility]* Diagnosis Traumatic complete tear of left rotator cuff, subsequent encounter- Primary Recurrent major depression in partial remission (HCC) ([facility]) Major depressive disorder, recurrent episode, in partial or unspecified remission Other hyperlipidemia EDITH (generalized anxiety disorder) ([facility]) Generalized anxiety disorder CKD (chronic kidney disease) stage 4, GFR 15-29 ml/min ([facility]) Chronic kidney disease, Stage IV (severe) Gastroesophageal reflux disease without esophagitis Esophageal reflux Coronary artery disease involving [place] coronary artery 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 pectoris ([facility]) Primary hypertension ([facility]) Unspecified essential hypertension Chronic obstructive pulmonary disease, unspecified COPD type ([facility]) Chronic obstructive pulmonary disease, unspecified COPD type ([facility])- Primary Coronary artery disease involving [place] coronary artery 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 pectoris ([facility]) CKD (chronic kidney disease) stage 4, GFR 15-29 ml/min ([facility]) Chronic kidney disease, Stage IV (severe) Gastroesophageal reflux disease without esophagitis Esophageal reflux Recurrent major depressive disorder, in full remission ([facility]) Other hyperlipidemia EDITH (generalized anxiety disorder) ([facility] Generalized anxiety disorder Recurrent major depression in partial remission (HCC) ([facility]) Major depressive disorder, recurrent episode, in partial or unspecified remission Primary hypertension ([facility] Unspecified essential hypertension Primary hypertension ([facility])- Primary Unspecified essential hypertension Other hyperlipidemia Coronary artery disease involving [place] coronary artery 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 pectoris ([facility]) Frequent falls Functional gait abnormality CKD (chronic kidney disease) stage 4, GFR 15-29 ml/min ([facility]) Chronic kidney disease, Stage IV (severe) Primary hypertension ([facility])- Primary Unspecified essential hypertension Chronic obstructive pulmonary disease, unspecified COPD type ([facility]) Chronic kidney disease, stage 4 (severe) ([facility]) Coronary artery disease involving [place] coronary artery 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 pectoris ([facility]) Gastroesophageal reflux disease without esophagitis Esophageal reflux EDITH (generalized anxiety disorder) ([facility]) Generalized anxiety disorder Recurrent major depressive disorder, in full remission ([facility]) Mixed hyperlipidemia ([facility]) Mixed hyperlipidemia MCI (mild cognitive impairment) Mild cognitive impairment, so stated Other hyperlipidemia Recurrent major depression in partial remission (HCC) ([facility]) Major depressive disorder, recurrent episode, in partial or unspecified remission Neck pain- Primary Cervicalgia Primary hypertension ([facility]) Unspecified essential hypertension Chronic kidney disease, stage 4 (severe) ([facility]) EDITH (generalized anxiety disorder) ([facility]) Generalized anxiety disorder Functional gait abnormality MCI (mild cognitive impairment) Mild cognitive impairment, so stated Other hyperlipidemia Coronary artery disease involving [place] coronary artery 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 pectoris ([facility]) Primary hypertension ([facility] Unspecified essential hypertension Recurrent major depression in partial remission (HCC) ([facility]) Major depressive disorder, recurrent episode, in partial or unspecified remission EDITH (generalized anxiety disorder) ([facility]) Generalized anxiety disorder documented in this encounter [facility]* Diagnosis Traumatic complete tear of left rotator cuff, subsequent encounter- Primary Recurrent major depression in partial remission (HCC) ([facility]) Major depressive disorder, recurrent episode, in partial or unspecified remission Other hyperlipidemia EDITH (generalized anxiety disorder) ([facility]) Generalized anxiety disorder CKD (chronic kidney disease) stage 4, GFR 15-29 ml/min ([facility]) Chronic kidney disease, Stage IV (severe) Gastroesophageal reflux disease without esophagitis Esophageal reflux Coronary artery disease involving [place] coronary artery 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 pectoris ([facility]) Primary hypertension ([facility]) Unspecified essential hypertension Chronic obstructive pulmonary disease, unspecified COPD type ([facility]) Chronic obstructive pulmonary disease, unspecified COPD type ([facility])- Primary Coronary artery disease involving [place] coronary artery 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 pectoris ([facility]) CKD (chronic kidney disease) stage 4, GFR 15-29 ml/min ([facility]) Chronic kidney disease, Stage IV (severe) Gastroesophageal reflux disease without esophagitis Esophageal reflux Recurrent major depressive disorder, in full remission ([facility]) Other hyperlipidemia EDITH (generalized anxiety disorder) ([facility] Generalized anxiety disorder Recurrent major depression in partial remission (HCC) ([facility]) Major depressive disorder, recurrent episode, in partial or unspecified remission Primary hypertension ([facility] Unspecified essential hypertension Primary hypertension ([facility])- Primary Unspecified essential hypertension Other hyperlipidemia Coronary artery disease involving [place] coronary artery 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 pectoris ([facility]) Frequent falls Functional gait abnormality CKD (chronic kidney disease) stage 4, GFR 15-29 ml/min ([facility]) Chronic kidney disease, Stage IV (severe) Primary hypertension ([facility])- Primary Unspecified essential hypertension Chronic obstructive pulmonary disease, unspecified COPD type ([facility]) Chronic kidney disease, stage 4 (severe) ([facility]) Coronary artery disease involving [place] coronary artery 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 pectoris ([facility] Gastroesophageal reflux disease without esophagitis Esophageal reflux EDITH (generalized anxiety disorder) ([facility]) Generalized anxiety disorder Recurrent major depressive disorder, in full remission ([facility]) Mixed hyperlipidemia ([facility]) Mixed hyperlipidemia MCI (mild cognitive impairment) Mild cognitive impairment, so stated Other hyperlipidemia Recurrent major depression in partial remission (HCC) ([facility]) Major depressive disorder, recurrent episode, in partial or unspecified remission Neck pain- Primary Cervicalgia Primary hypertension ([facility]) Unspecified essential hypertension Chronic kidney disease, stage 4 (severe) ([facility]) EDITH (generalized anxiety disorder) ([facility]) Generalized anxiety disorder Functional gait abnormality MCI (mild cognitive impairment) Mild cognitive impairment, so stated Primary hypertension ([facility]) Unspecified essential hypertension Other hyperlipidemia Neck pain Cervicalgia Recurrent major depression in partial remission (HCC) ([facility]) Major depressive disorder, recurrent episode, in partial or unspecified remission Coronary artery disease involving [place] coronary artery 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 pectoris ([facility]) Gastroesophageal reflux disease without esophagitis Esophageal reflux Chronic obstructive pulmonary disease, unspecified COPD type ([facility]) EDITH (generalized anxiety disorder) ([facility] Generalized anxiety disorder documented in this encounter [facility]* Diagnosis Traumatic complete tear of left rotator cuff, subsequent encounter- Primary Recurrent major depression in partial remission (HCC) ([facility]) Major depressive disorder, recurrent episode, in partial or unspecified remission Other hyperlipidemia EDITH (generalized anxiety disorder) ([facility]) Generalized anxiety disorder CKD (chronic kidney disease) stage 4, GFR 15-29 ml/min ([facility]) Chronic kidney disease, Stage IV (severe) Gastroesophageal reflux disease without esophagitis Esophageal reflux Coronary artery disease involving [place] coronary artery 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 pectoris ([facility]) Primary hypertension ([facility]) Unspecified essential hypertension Chronic obstructive pulmonary disease, unspecified COPD type ([facility]) Chronic obstructive pulmonary disease, unspecified COPD type ([facility])- Primary Coronary artery disease involving [place] coronary artery 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 pectoris ([facility]) CKD (chronic kidney disease) stage 4, GFR 15-29 ml/min ([facility]) Chronic kidney disease, Stage IV (severe) Gastroesophageal reflux disease without esophagitis Esophageal reflux Recurrent major depressive disorder, in full remission ([facility]) Other hyperlipidemia EDITH (generalized anxiety disorder) ([facility] Generalized anxiety disorder Recurrent major depression in partial remission (HCC) ([facility]) Major depressive disorder, recurrent episode, in partial or unspecified remission Primary hypertension ([facility] Unspecified essential hypertension Primary hypertension ([facility])- Primary Unspecified essential hypertension Other hyperlipidemia Coronary artery disease involving [place] coronary artery 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 pectoris ([facility]) Frequent falls Functional gait abnormality CKD (chronic kidney disease) stage 4, GFR 15-29 ml/min ([facility]) Chronic kidney disease, Stage IV (severe) Primary hypertension ([facility])- Primary Unspecified essential hypertension Chronic obstructive pulmonary disease, unspecified COPD type ([facility]) Chronic kidney disease, stage 4 (severe) ([facility]) Coronary artery disease involving [place] coronary artery 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 pectoris ([facility] Gastroesophageal reflux disease without esophagitis Esophageal reflux EDITH (generalized anxiety disorder) ([facility]) Generalized anxiety disorder Recurrent major depressive disorder, in full remission ([facility]) Mixed hyperlipidemia ([facility]) Mixed hyperlipidemia MCI (mild cognitive impairment) Mild cognitive impairment, so stated Other hyperlipidemia Recurrent major depression in partial remission (HCC) ([facility]) Major depressive disorder, recurrent episode, in partial or unspecified remission Neck pain- Primary Cervicalgia Primary hypertension ([facility]) Unspecified essential hypertension Chronic kidney disease, stage 4 (severe) ([facility]) EDITH (generalized anxiety disorder) ([facility]) Generalized anxiety disorder Functional gait abnormality MCI (mild cognitive impairment) Mild cognitive impairment, so stated Neck pain- Primary Cervicalgia documented in this encounter [facility]* Diagnosis Traumatic complete tear of left rotator cuff, subsequent encounter- Primary Recurrent major depression in partial remission (HCC) ([facility]) Major depressive disorder, recurrent episode, in partial or unspecified remission Other hyperlipidemia EDITH (generalized anxiety disorder) ([facility]) Generalized anxiety disorder CKD (chronic kidney disease) stage 4, GFR 15-29 ml/min ([facility]) Chronic kidney disease, Stage IV (severe) Gastroesophageal reflux disease without esophagitis Esophageal reflux Coronary artery disease involving [place] coronary artery 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 pectoris ([facility]) Primary hypertension ([facility]) Unspecified essential hypertension Chronic obstructive pulmonary disease, unspecified COPD type ([facility]) Chronic obstructive pulmonary disease, unspecified COPD type ([facility])- Primary Coronary artery disease involving [place] coronary artery 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 pectoris ([facility]) CKD (chronic kidney disease) stage 4, GFR 15-29 ml/min ([facility]) Chronic kidney disease, Stage IV (severe) Gastroesophageal reflux disease without esophagitis Esophageal reflux Recurrent major depressive disorder, in full remission ([facility] [facility]) Other hyperlipidemia EDITH (generalized anxiety disorder) ([place]) Generalized anxiety disorder Recurrent major depression in partial remission (HCC) ([place]) Major depressive disorder, recurrent episode, in partial or unspecified remission Primary hypertension ([place]) Unspecified essential hypertension Primary hypertension ([place])- Primary Unspecified essential hypertension Other hyperlipidemia Coronary artery disease involving buckland coronary artery 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 pectoris ([facility]) Frequent falls Functional gait abnormality CKD (chronic kidney disease) stage 4, GFR 15-29 ml/min ([facility]) Chronic kidney disease, Stage IV (severe) Primary hypertension ([place])- Primary Unspecified essential hypertension Chronic obstructive pulmonary disease, unspecified COPD type ([facility]) Chronic kidney disease, stage 4 (severe) ([place]) Coronary artery disease involving buckland coronary artery 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 pectoris ([facility]) Gastroesophageal reflux disease without esophagitis Esophageal reflux EDITH (generalized anxiety disorder) ([place]) Generalized anxiety disorder Recurrent major depressive disorder, in full remission ([facility]) Mixed hyperlipidemia ([facility]) Mixed hyperlipidemia MCI (mild cognitive impairment) Mild cognitive impairment, so stated Other hyperlipidemia Recurrent major depression in partial remission (HCC) ([place]) Major depressive disorder, recurrent episode, in partial or unspecified remission Neck pain- Primary Cervicalgia Primary hypertension ([facility]) Unspecified essential hypertension Chronic kidney disease, stage 4 (severe) ([place]) EDITH (generalized anxiety disorder) ([place]) Generalized anxiety disorder Functional gait abnormality MCI (mild cognitive impairment) Mild cognitive impairment, so stated Cervical spondylosis- Primary Cervical spondylosis without myelopathy Neck pain Cervicalgia Primary hypertension ([facility]) Unspecified essential hypertension Chronic kidney disease, stage 4 (severe) ([facility]) EDITH (generalized anxiety disorder) ([facility]) Generalized anxiety disorder H/O: lung cancer Personal history of malignant neoplasm of bronchus and lung MCI (mild cognitive impairment) Mild cognitive impairment, so stated [facility] Diagnosis Cervical spondylosis- Primary Cervical spondylosis without myelopathy Cervical spondylosis- Primary Cervical spondylosis without myelopathy Cervical spondylosis Cervical spondylosis without myelopathy [facility] Diagnosis Traumatic complete tear of left rotator cuff, subsequent encounter- Primary Recurrent major depression in partial remission Major depressive disorder, recurrent episode, in partial or unspecified remission Other hyperlipidemia EDITH (generalized anxiety disorder) Generalized anxiety disorder CKD (chronic kidney disease) stage 4, GFR 15-29 ml/min ([facility]) Chronic kidney disease, Stage IV (severe) Gastroesophageal reflux disease without esophagitis Esophageal reflux Coronary artery disease involving buckland coronary artery 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 pectoris Primary hypertension Unspecified essential hypertension Chronic obstructive pulmonary disease, unspecified COPD type ([facility]) Chronic obstructive pulmonary disease, unspecified COPD type (HCC)- Primary Coronary artery disease involving buckland coronary artery 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 pectoris CKD (chronic kidney disease) stage 4, GFR 15-29 ml/min ([facility]) Chronic kidney disease, Stage IV (severe) Gastroesophageal reflux disease without esophagitis Esophageal reflux Recurrent major depressive disorder, in full remission Other hyperlipidemia EDITH (generalized anxiety disorder) Generalized anxiety disorder Recurrent major depression in partial remission Major depressive disorder, recurrent episode, in partial or unspecified remission Primary hypertension Unspecified essential hypertension Primary hypertension- Primary Unspecified essential hypertension Other hyperlipidemia Coronary artery disease involving buckland coronary artery 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 pectoris Frequent falls Functional gait abnormality CKD (chronic kidney disease) stage 4, GFR 15-29 ml/min ([facility]) Chronic kidney disease, Stage IV (severe) Primary hypertension- Primary Unspecified essential hypertension Chronic obstructive pulmonary disease, unspecified COPD type (HCC) Chronic kidney disease, stage 4 (severe) ([facility]) Coronary artery disease involving buckland coronary artery 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 pectoris Gastroesophageal reflux disease [...] Unspecified essential hypertension Coronary artery disease involving buckland coronary artery 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 pectoris Chronic kidney disease, stage 4 (severe) (HCC) Pulmonary hypertension (HCC) Other chronic pulmonary heart diseases EDITH (generalized anxiety disorder) Generalized anxiety disorder Other hyperlipidemia Neck pain Cervicalgia Recurrent major depression in partial remission Major depressive disorder, recurrent episode, in partial or unspecified remission Gastroesophageal reflux disease without esophagitis Esophageal reflux Chronic obstructive pulmonary disease, unspecified COPD type ([facility]) [facility] Diagnosis Cervical spondylosis- Primary Cervical spondylosis without myelopathy documented in this [facility] Diagnosis Dyspnea and respiratory abnormalities- Primary Other dyspnea and respiratory abnormality Centrilobular emphysema (HCC) Other emphysema Class 1 obesity due to excess calories with serious comorbidity and body mass index (BMI) of 32.0 to 32.9 in adult Sleep-disordered breathing Other sleep disturbances Coronary artery disease involving buckland coronary artery 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 pectoris- Primary Hx of [...] stated [facility] Diagnosis Dyspnea and respiratory abnormalities- Primary Other dyspnea and respiratory abnormality Centrilobular emphysema (HCC) Other emphysema Class 1 obesity due to excess calories with serious comorbidity and body mass index (BMI) of 32.0 to 32.9 in adult Sleep-disordered breathing Other sleep disturbances Chronic heart failure with preserved ejection fraction (HCC)- Primary documented in this encounter [facility] general Narrative - Reported* Type Description Date Medical History hypertension Medical HistoryhypercholesterolemiaMedical Historylung cancerMedical History heart diseaseMedical HistoryA flutterMedical HistoryEsophageal refluxMedical HistoryDEPRESSION AND ANXIETYSurgical HistoryCABGSurgical HistoryherniaSurgical Historylobectomy: lungSurgical HistoryFR/Dr Joshi--hernia repair10/2020 Hospitalization Historysee above [facility] Other History general Narrative - ReportedNort [employer] Other [employer] general 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 lung cancer Diagnosis 1 Pulmonary nodule (R9 1.1) Referral Organization [facility] yeimy Sparks Referring Provider First Name Cristo Referring Provider Last Name Gabriele Referring Provider Specialty Family Medi cine Referred Organization [facility] Referred Provider Gonsalo Hawley Referred Address [address] [place] [phone] Referred Provider Specialty Pulmonary Marium briseno Referral Priority Routine General Notes Mattie Carballo 01:40:04 PM >referral received and sent p2p successful per log [facility] Other Reason for referral (narrative)* Outpatient Procedure (Routine) - Pending ReviewSpecialtyDiagnoses / ProceduresReferred By Contact Referred To [facility]RES[facility]IRATORY INSTITUTE Diagnoses Shortness of breath Procedures SPIROMETRY WITH DILATOR IF OBSTRUCTED BRNCDILAT RSPSE SPMTRY PRE&POST-BRNCDILAT ADMMarisol Abdul MD [address] [place] [address] [address] [place] [address] [place] [address] Referral IDStatusReasonStart DateExpiration DateVisits RequestedVisits [id number] Review Auto-Generated Referral / [facility] for visit NarrativeRef by Dr. Suazo for pulmonology, lung nodule, progressive SOB, hx. lung cancerAm[place] [employer] Other Summary Purpose Family History No Family [...] July 6:23pm Hospital Course Note MR#: [id number] [facility] Pt. Name: Kel Castillo Admitted: 10/05/2019 [...] STEM W/[place] [address] [place] [address] Mr Imaging Referral IDStatusReasonStart DateExpiration DateVisits RequestedVisits [id number] Auto-Generated Referral /[id number] / ProceduresReferred By ContactReferred To ContactMR IMAGING Diagnoses Cognitive impairment, mild, so stated Procedures MRI 3D POST PROCESSING 3D RENDERING W/INTERP&POSTPROC DIFF WORK STATION Alonzo Cabrera MD, [address] [place] [address] Mr Imaging Referral IDStatusReasonStart DateExpiration DateVisits RequestedVisits [id number] Review Auto-Generated Referral 1Referral IDStatusReasonStart DateExpiration DateVisits RequestedVisits [id number] Auto-Generated Referral /[id number] / ProceduresReferred By ContactReferred To ContactPsychology Diagnoses Recurrent major depression in partial remission (HCC) Procedures CONSULT TO PSYCHOLOGY OFFICE/OUTPATIENT [facility] MDM 60-74 MINUTES Eun Kaufman DO [address] [place] [address] Referral IDStatusReasonStart DateExpiration DateVisits RequestedVisits [id number] Review PCP Requested Referral [id number] / ProceduresReferred By ContactReferred To ContactREHAB AND SPORTS THERAPY INS Diagnoses Abnormality of gait Procedures CONSULT TO PHYSICAL THERAPY PHYSICAL THERAPY EVALUATION HIGH COMPLEX 45 MINS Eun Trent DO [address] [place] [address] [facility] [place] [address] Referral IDStatusReasonHessmer DateExpiration DateVisits RequestedVisits [id number] Review Auto-Generated Referral [id number] / ProceduresReferred By ContactReferred To ContactCT IMAGING Diagnoses Memory loss Procedures CT BRAIN WO IVCON CT HEAD/BRAIN W/O CONTRAST MATERIAL Mandeep LatashaEun, [place] [address] Ct [facility] [place] [address] Referral IDStatusReasonStart DateExpiration DateVisits RequestedVisits [id number] Auto-Generated Referral [id number] / ProceduresReferred By ContactReferred To Contact Diagnoses Memory loss Procedures NEUROPSYCHOLOGICAL TESTING CONSULT NEUROBEHAVIORAL STATUS XM PHYS/QHP 1ST HOUR NEUROPSYCHOLOGICAL TST EVAL PHYS/QHP 1ST HOUR NEUROPSYCHOLOGICAL TST EVAL PHYS/QHP EA ADDL HR PSYCL/NRPSYCL TST TECH 2+ TST 1ST 30 MIN PSYCL/NRPSYCL TST TECH 2+ TST EA ADDL 30 MIN Mandeep Latasha Eun, [address] [id number] Referral IDStatusReasonStart DateExpiration DateVisits RequestedVisits [id number] Not Required PCP Requested Referral Referral IDStatusReasonStart DateExpiration DateVisits RequestedVisits [id number] Auto-Generated Referral Chief Complaint and Reason for Visit Chief Complaint g47.30 Chief Complaint RENAL 6 MONTH F/U Reason for Visit Anemia CAD (coronary artery disease) of artery bypass graft Chronic kidney disease, stage 3b Hyperkalemia Hyperlipemia [id number] Chief Complaint Admit Date RENAL 6 MONTH [...] section and content) DATE CREATED AUTHOR 04/05/2018 [facility] DATE CREATED AUTHOR AUTHOR'S ORGANIZ ATION 01/06/2020 [facility] DATE CREATED AUTHOR AUTHOR'S ORGANIZ ATION 12/19/2022 [facility] DATE CREATED AUTHOR AUTHOR'S ORGANIZ ATION 04/22/2023 [facility] DATE CREATED AUTHOR AUTHOR'S ORGANIZ ATION 03/04/2024 [place] DATE CREATED AUTHOR AUTHOR'S ORGANIZ ATION 05/13/2024 [facility] DATE CREATED AUTHOR AUTHOR'S ORGANIZ ATION 03/03/2025 [facility] DATE CREATED AUTHOR AUTHOR'S ORGANIZ ATION 04/07/2025 [facility] DATE CREATED AUTHOR AUTHOR'S ORGANIZ ATION 04/07/2025 [facility] DATE CREATED AUTHOR AUTHOR'S ORGANIZ ATION 04/30/2025 [facility] DATE CREATED AUTHOR AUTHOR'S ORGANIZ ATION 06/21/2025 [facility] Source Comments (unrecognize d section and content) In the event this informatio n is protected by the Federal Confidentiality of Alcohol and Drug Abuse Patient Records regulations: The Federal rules restrict any use of the information to criminally investigate or prosecute any alcohol or drug abuse patient.[facility] CenterIn the event this information is protected by the Federal Confidentiality of Alcohol and Drug Abuse Patient Records regulations: The Federal rules restrict any use of the information to criminally investigate or prosecute any alcohol or drug abuse patient.[facility] CenterIn the event this information is protected by the Federal Confidentiality of Alcohol and Drug Abuse Patient Records regulations: The Federal rules restrict any use of the information to criminally investigate or prosecute any alcohol or drug abuse patient.[facility] CenterIn the event this information is protected by the Federal Confidentiality of Alcohol and Drug Abuse Patient Records regulations: The Federal rules restrict any use of the information to criminally investigate or prosecute any alcohol or drug abuse patient.[facility] CenterIn the event this information is protected by the Federal Confidentiality of Alcohol and Drug Abuse Patient Records regulations: The Federal rules restrict any use of the information to criminally investigate or prosecute any alcohol or drug abuse patient.[facility] CenterIn the event this information is protected by the Federal Confidentiality of Alcohol and Drug Abuse Patient Records regulations: The Federal rules restrict any use of the information to criminally investigate or prosecute any alcohol or drug abuse patient.[facility] CenterIn the event this information is protected by the Federal Confidentiality of Alcohol and Drug Abuse Patient Records regulations: The Federal rules restrict any use of the information to criminally investigate or prosecute any alcohol or drug abuse patient.[facility] CenterIn the event this information is protected by the Federal Confidentiality of Alcohol and Drug Abuse Patient Records regulations: The Federal rules restrict any use of the information to criminally investigate or prosecute any alcohol or drug abuse patient.[facility] CenterIn the event this information is protected by the Federal Confidentiality of Alcohol and Drug Abuse Patient Records regulations: The Federal rules restrict any use of the information to criminally investigate or prosecute any alcohol or drug abuse patient.[facility] CenterIn the event this information is protected by the Federal Confidentiality of Alcohol and Drug Abuse Patient Records regulations: The Federal rules restrict any use of the information to criminally investigate or prosecute any alcohol or drug abuse patient.[facility] CenterIn the event this information is protected by the Federal Confidentiality of Alcohol and Drug Abuse Patient Records regulations: The Federal rules restrict any use of the information to criminally investigate or prosecute any alcohol or drug abuse patient.[facility] CenterIn the event this information is protected by the Federal Confidentiality of Alcohol and Drug Abuse Patient Records regulations: The Federal rules restrict any use of the information to criminally investigate or prosecute any alcohol or drug abuse patient.[facility] CenterIn the event this information is protected by the Federal Confidentiality of Alcohol and Drug Abuse Patient Records regulations: The Federal rules restrict any use of the information to criminally investigate or prosecute any alcohol or drug abuse patient.[facility] CenterIn the event this information is protected by the Federal Confidentiality of Alcohol and Drug Abuse Patient Records regulations: The Federal rules restrict any use of the information to criminally investigate or prosecute any alcohol or drug abuse patient.[facility] CenterIn the event this information is protected by the Federal Confidentiality of Alcohol and Drug Abuse Patient Records regulations: The Federal rules restrict any use of the information to criminally investigate or prosecute any alcohol or drug abuse patient.[facility] CenterIn the event this information is protected by the Federal Confidentiality of Alcohol and Drug Abuse Patient Records regulations: The Federal rules restrict any use of the information to criminally investigate or prosecute any alcohol or drug abuse patient.[facility] Reason for Visit (unrecogniz ed section and content) ReasonCommentsNew PatientMemory lossSpecialtyDiagnoses / ProceduresReferred By ContactReferred To ContactMR IMAGING Diagnoses Cognitive impairment, mild, so stated 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) Depression, unspecified depression type Procedures MRI BRAIN WO IVCON MRI BRAIN BRAIN STEM W/[place] [address] [place] [address] Mr Imaging Referral IDStatusReasonStart DateExpiration DateVisits RequestedVisits [id number] Auto-Generated Referral /[id number]QohwfbsoiIbqqzfgjs / Procedures Referred By ContactReferred To ContactCARLSBAD MEDICAL CENTERIRATORY INSTITUTE Diagnoses Shortness of breath Procedures SPIROMETRY WITH DILATOR IF OBSTRUCTED BRNCDILAT RSPSE SPMTRY PRE&POST-BRNCDILAT Marisol Olivares MD [address] [place] [id number] [facility] [address] [place] [address] Referral IDStatusReasonStart DateExpiration DateVisits RequestedVisits [id number] Auto-Generated Referral /[id number] Patient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)ReasonCommentsCare Coordinator - OtherIn response to order placed in EPICReasonCommentsEstablished PatientReasonComments Follow-upMEDS/SHOULDERReasonCommentsEstablished PatientFollow UpSpecialty Diagnoses / ProceduresReferred By ContactReferred To ContactNeurology / NEUROLOGY Diagnoses Follow-up exam Follow up Procedures OFFICE/OUTPATIENT ESTABLISHED HIGH MDM 40 MIN EST NI PATIENT Self Eun Trent, DO [address] [place] [address] Referral IDStatusReasonStart DateExpiration DateVisits RequestedVisits [id number] Financial Clearance Not Required Patient Cleared - INN Insurance Found [id number] / ProceduresReferred By Contact Referred To ContactCT IMAGING Diagnoses Memory loss Procedures CT BRAIN WO IVCON CT HEAD/BRAIN W/O CONTRAST MATERIAL Eun Trent, DO [address] [place] [address] Ct [facility] [place] [address] Referral IDStatusReasonStrison DateExpiration DateVisits RequestedVisits [id number] Auto-Generated Referral [id number] RefillSpecialtyDiagnoses / Procedures Referred By ContactReferred To Contact Diagnoses Memory loss Procedures NEUROPSYCHOLOGICAL TESTING CONSULT NEUROBEHAVIORAL STATUS XM PHYS/QHP 1ST HOUR NEUROPSYCHOLOGICAL TST EVAL PHYS/QHP 1ST HOUR NEUROPSYCHOLOGICAL TST EVAL PHYS/QHP EA ADDL HR PSYCL/NRPSYCL TST TECH 2+ TST 1ST 30 MIN PSYCL/NRPSYCL TST TECH 2+ TST EA ADDL 30 MIN Eun Trent, DO [address] [place] [address] Referral IDStatusReasonStart DateExpiration DateVisits RequestedVisits [id number] PCP Requested Referral [id number]ayBvndfjEberocrvZqrpmt-reSuhety CommentsNeck PainReasonCommentsHypertensionReasonCommentsNew PatientCADReason Onset EuzeFtlukowfDulzaxa16/22/2025ReasonCommentsCare Coordinator - Other Care Teams (unrecognized sec tion and content) Team MemberRelationshipSpecialtyStart DateEnd Date GenesisMirtha smithThomas [address] [place] [address] [place] Referring TeamPsychiatry12/21/21Team MemberRelationshipSpecialtyStart DateEnd Date [facility] [address] [place] [address] NI Referring TeamPsychiatry12/21/21Team MemberRelationshipSpecialtyStart DateEnd Date [facility] [address] [place] [address] NI Referring TeamPsychiatry12/21/21Team MemberRelationshipSpecialtyStart DateEnd Date GenesisMirtha smithThomas [address] [place] [address] NI Referring TeamPsychiatry12/21/21Team MemberRelationshipSpecialtyStart DateEnd Date [facility] HospitalMirthaThmoas [address] [place] [address] NI Referring TeamPsychiatry12/21/21Team MemberRelationshipSpecialtyStart DateEnd Date [facility] [address] [place] [address] NI Referring TeamPsychiatry12/21/21Team MemberRelationshipSpecialtyStart DateEnd Date [facility] Hospital[facility]Thomas [address] [place] [address] NI Referring TeamPsychiatry12/21/21 Team Status: Inactive Member Role Status Dates Corona Monroe MD Attending Provider Active Casper Cooper Care ProviderActive Team Status: Active Member Role Status Dates Daria Cardoza DO Primary Care Provider Active Team MemberRelationshipSpecialtyStart DateEnd Date Franky Hurtadoam [address] [place] [address] [place] Referring TeamPsychiatry12/21/21Team MemberRelationshipSpecialtyStart DateEnd Date Shaikh [...] Date Thomas Hurtado MD [address] [place] [address] NI Referring TeamPsychiatry12/21/21Team MemberRelationshipSpecialtyStart DateEnd Date Thomas Hurtado MD [address] [place] [address] NI Referring TeamPsychiatry12/21/21Team MemberRelationshipSpecialtyStart DateEnd Date Shaikh Grimes MD [facility] [address] [facility] [place] [address] PCP - [facility]10/11/23 Jose Beckford MD [address] [place] [address] PCP - [facility]06/09/24 Jayy Coronado, PARI [address] [place] [address] Nurse Pract[facility]06/09/24Team MemberRelationshipSpecialtyStart DateEnd Date Shaikh Grimes MD [address] [place] [address] PCP - [facility]10/11/23 Jose Beckford MD [address] [place] [address] PCP - [facility]06/09/24 Jayy Coronado, PARI [address] [place] [address] Nurse Pract[facility]06/09/24Team MemberRelationshipSpecialtyStart DateEnd Date Shaikh Grimes MD [address] [place] [address] [facility] Jose Beckford MD [address] [place] [address] PCP - [facility]06/09/24 Jayy Coronado NP [address] [place] [address] Nurse PractitionerFanhly Izmkpfqd79/29/24 Vannessa Russell MA Family Fgqfushj05/01/2411Team MemberRelationshipSpecialtyStart DateEnd Date Shaikh Grimes MD [address] [place] [address] PCP - Aetna10/11/23 Jose Beckford MD [address] [place] [address] PCP - Generalmily Zkhzrhes68/29/24 Jayy Coronado NP [address] [place] [address] Nurse PractitionerSoutheast [facility]06/09/24Team MemberRelationshipSpecialtyStart DateEnd Date Shaikh Grimes MD [address] [place] [address] PCP - Aet10/11/23 Jose Beckford MD [address] [place] [address] PCP - GeneralFamily Lyeofcfl11/29/24 Jayy Coronado NP [address] [place] [address] Nurse PractitionerFamily Yrdduxzr52/29/24Team MemberRelationshipSpecialtyStart DateEnd Date Shaikh Grimes MD [address] [place] [address] PCP - GeneralInternal Medicine08/12/22 Shaikh Grimes MD [address] [place] [address] PCP - [employer]et[employer]10/11/23Team MemberRelationshipSpecialtyStart DateEnd Date Thomas Hurtado MD [address] [place] [address] [facility] TeamPsychiatry12/21/21Team MemberRelationshipSpecialtyStart DateEnd Date Jose Beckford MD [address] [place] [address] PCP - Generalmily Tekxzhrw41/29/24 Jayy Coronado NP [address] [place] [address] Nurse Practitionermily Pveunqga58/29/24Team MemberRelationshipSpecialtyStart DateEnd Date Jose Beckford MD [address] [place] [address] PCP - Generalmily Gwkbvdmc10/29/24 Jayy Coronado NP [address] [place] [address] Nurse Practitionermily Bwahtkoi85/29/24Team MemberRelationshipSpecialtyStart DateEnd Date Thomas Hurtado MD [address] [place] [address] NI Referring TeamPsychiatry12/21/21 Team Status: Inactive Member Role Status Dates NON STAFF Primary Care Provider Active Start: October 27, 2024 End: October 27ashish Toscano MDAttending ProviderActiveStart: October 27, 2024 End: October 27, 2024Team MemberRelationshipSpecialtyStart DateEnd Date Jose Beckford MD [address] [place] [address] [facility] - [facility] Zkpcqhfb78/29/24 Jayy Coronado NP [address] Nurse PractitionerWaverly Health Centerly Tjhqarsy15/29/24Team MemberRelationshipSpecialtyStart DateEnd Date Jose Beckford MD [address] [place] [address] PCP - GeneralFami Seecyjpk61/29/24 Jayy Coronado NP [address] [place] [address] Nurse PractitionerWaverly Health Centerly Jollflxf35/29/24Team MemberRelationshipSpecialtyStart DateEnd Date Jose Beckford MD [address] [place] [address] PCP - [facility] Mplpmubd58/29/24 Jayy Coronado NP [address] [place] [address] Nurse PractitionerFamily Oealwvto46/29/24Team MemberRelationshipSpecialtyStart DateEnd Date Jose Beckford MD [address] [place] [address] PCP - Generalmi Qnselmwq28/29/24 Jayy Coronado NP [address] [place] [address] Nurse PractitionerSoutheast [facility]06/09/24Team MemberRelationshipSpecialtyStart DateEnd Date Jose Beckford MD [address] [place] [address] PCP - GeneralSoutheast [facility]06/09/24 Jayy Coronado NP [address] [place] [address] Nurse PractitionerSoutheast [facility]06/09/24Team MemberRelationshipSpecialtyStart DateEnd Date Jose Beckford MD [address] [place] [address] PCP - Generalmi Huhiqzzw76/29/24 Jayy Coronado, PARI [address] [place] [address] Nurse PractitionerSoutheast [facility]06/09/24Team MemberRelationshipSpecialtyStart DateEnd Date Jose Beckford MD [address] [place] [address] PCP - Generalmi Aigjzgdy10/29/24 Jayy Coronado NP [address] [place] [address] Nurse Practitionermily Cztdtigl15/29/24Team MemberRelationshipSpecialtyStart DateEnd Date Jose Beckford MD [address] [place] [address] PCP - GeneralFamily Oxllrehj96/29/24 Jayy Coronado NP [address] [place] [address] [facility] Pract[facility]erH[facility] Hospital Zkiddboj67/29/24Team MemberRelationshipSpecialtyStart DateEnd Date Jose Beckford MD [address] [place] [address] PCP - Generalmily Nykagacr13/29/24 Jayy Coronado NP [address] [place] [address] Nurse Pract[facility]erH[facility] Hospital Rvsmyzjk12/29/24Team MemberRelationshipSpecialtyStart DateEnd Date Jose Beckford MD [address] [place] [address] PCP - GeneralFamily Lzmtbqps15/29/24 Jayy Coronado, PARI [address] [place] [address] Nurse PractitionerH[facility] Hospital Chwfjqfg69/29/24Team MemberRelationshipSpecialtyStart DateEnd Date Jose Beckford MD [address] [place] [address] PCP - Generalmily Bwkizfvv18/29/24 Jayy Coronado NP [address] [place] [address] Nurse PractitionerSoutheast [facility] Health [facility]06/09/24 Team Status: Inactive Member Role Status Dates NON STAFF Primary Care Provider Active Start: January 19, 2025 End: January 19Nette Gudinoending ProviderActiveStart: January 19, 2025 End: January 19, 2025Team MemberRelationshipSpecialtyStart DateEnd Date Noa Watson, SALES SERVICE REPRESENTATIVE-DENTAL TECHNICIAN [address] [place] [address] PCP - GeneralChristianacare01/11/25Team MemberRelationshipSpecialtyStart Date End Date Jose Beckford MD [address] [place] [address] PCP - [facility]06/09/24 Jayy Coronado NP [address] [place] [address] Nurse PractitionerSoutheast [facility]06/09/24Team MemberRelationshipSpecialtyStart DateEnd Date Jose Beckford MD [address] [place] [address] PCP - GeneralSoutheast [facility] Health [facility]06/09/24 Jayy Coronado NP [address] [place] [address] Nurse PractitionerSoutheast [facility] Health [facility]06/09/24Team MemberRelationshipSpecialtyStart DateEnd Date Jose Beckford MD [address] [place] [address] PCP - GeneralFamily Lfekedsh14/29/24 Jayy Coronado NP [address] [place] [address] Nurse PractitionerFamily Nxmtygaq50/29/24Team MemberRelationshipSpecialtyStart DateEnd Date Noa Watson, SALES SERVICE REPRESENTATIVE-DENTAL TECHNICIAN PCP - [facility] [place] Practitioner01/11/25Team MemberRelationshipSpecialtyStart Date End Date Jose Beckford MD [address] [place] [address] PCP - Generalmily Jcrsibad03/29/24 Jayy Coronado NP [address] [place] [address] Nurse PractitionerWaverly Health Centerly Funvfrku43/29/24Team MemberRelationshipSpecialtyStart DateEnd Date Noa Watson, DENTAL TECHNICIAN [address] [place] [address] PCP - GeneralFamily Medicine04/01/25 Thomas Hurtado MD [address] [place] [address] NI Referring TeamPsychiatry12/21/21Team MemberRelationshipSpecialtyStart DateEnd Date Noa Watson, DENTAL TECHNICIAN [address] [place] [address] PCP - GeneralFamily Medicine04/01/25 Thomas Hurtado MD [address] [place] [address] NI Referring TeamPsychiatry12/21/21Team MemberRelationshipSpecialtyStart DateEnd Date Noa Watson MÓNICA Clancy [address] [place] [address] PCP - GeneralFamily Medicine04/01/25 Thomas Hurtado MD [address] [place] [address] NI Referring TeamPsychiatry12/21/21Team MemberRelationshipSpecialtyStart DateEnd Date Shaikh Grimes MD PCP - GeneralInternal Medicine08/12/2309 Shaikh Grimes MD [address] [place] [address] PCP - Aet[employer]/ Jose Beckford MD [address] [place] [address] PCP - GeneralFamily Enuvugor12/29/24 Jayy Coronado NP [address] [place] [address] Nurse Practitionermily Etnskgzt99/29/24 Vannessa Russell, MINESH [address] [place] [address] Family Ljklfgrg86/6/2411 Goals (unrecognized section and content) Goals may [...] BE BASED ON THE PRIMARY CLINICAL RECORDS. [employer] [facility]. provides no warranty or guarantee of the accuracy or completeness of information in this document.
--- OUTSIDE RECORDS SUMMARY | 2025-07-12 22:43 | XMS_ITS | Encounter Summary ---
Author Organization [facility] Address [address] [place] [address] Care Team Providers Care Crewman Main Battle Tank Name Role Phone Susan Watson MD Primary Care Provider [phone] Reason for Visit * ReasonOnset DateCommentsHospital Follow-up07/02/2025 Encounter Details DateTypeDepartmentCare Team (Latest Contact Info)Jmugvqlsqkm84/21/2025Telephone [facility] [address] [address] Brianne Morales, JOHANA Hospital Follow-up Social History Tobacco UseTypesPacks/DayYears UsedDateSmoking Tobacco: FormerCigarettes Smokeless Tobacco: CurrentChewAlcohol UseStandard Drinks/WeekCommentsNot Currently0 (1 standard drink = 0.6 oz pure alcohol)PHQ-2AnswerDate Recorded Patient Health Questionnaire-2 Qnwdh53808/14/2024Humiliation, Afraid, Rape, and Kick questionnaireAnswerDate RecordedWithin the [...] times a week06/15/2025How often do you attend orthodox or voodoo services?Never06/15/2025Do you belong to any clubs or organizations such as orthodox groups, unions, fraternal or athletic groups, or school groups?No06/15/2025How often do you attend meetings of the clubs or organizations you belong to?Never06/15/2025re you , , , , never , or living with a partner?Scylzeksn22/04/2025UDIT-C AnswerDate RecordedQ1: How often do you have [...] medical care, and heating?Not hard at all06/29/2025 [facility] [place] [facility] Occupational [facility] - Occupational Stress Questionnaire AnswerDate RecordedDo you feel stress - tense, restless, nervous, or anxious, or unable to sleep at night because yourmind is troubled all the time - these days? Only a abrexc6506/15/2025HC UtilitiesAnswerDate RecordedIn the past 12 months has the Project Manager, gas, oil, or water [employer] threatened to shut off services in your [...] were you homeless or living in a usp (including now)?No06/29/2025Hunger Vital SignAnswerDate Recorded Within the past 12 months, you worried that your food would run out before you got the money to buymore.Never true06/29/2025Within the past 12 months, the food you bought just didn't last and you didn't have money to get more.Never true 06/29/2025Sex and Gender InformationValueDate RecordedSex Assigned at BirthMale 04/08/2025 7:15 AM EDTLegal TboKfve9302/07/2022 10:15 PM EDTGender IdentityMale 04/08/2025 7:15 AM EDTSexual OrientationHeterosexual or Ibhfapuf23/28/2025 7:15 AM EDTdocumented as of this encounter Miscellaneous Notes * Telephone Encounter - Brianne Morales RN - 07/02/2025 11:04 AM EST Images from the original note were not included. Post Discharge Call Good morning, I am Brianne Morales RN a lead nurse from [facility].I am calling you to follow [...] Plan of Treatment DateTypeDepartmentCare Team (Latest Contact Info)Yevdqnefgxd10/08/2025 1:45 PM ESTFollow-Up [facility] Vascular and Endovascular Surgery [address] [place] [place] [address] Nadia Sheppard PA-C [address] [facility], [address] [place] [address] 07/22/2025 9:30 AM ESTFollow-Up [facility] Heart at [facility] [address] [place] [address] Sarah Tolliver MD [address] [facility] [address] [facility] [place] [address] 07/29/2025 2:30 PM ESTFollow-Up [facility] Medical Pavilion Gastroenterology [address] [place] [address] Ebony Estevez CNP [address] [facility] [place], [place] [address] 08/23/2025 7:30 AM ESTHospital Encounter [facility] Main Operating Room [address] [place] [address] Chris Andre MD [address] [facility] [place] [address] 08/23/2025 7:30 AM EST - 08/23/2025 11:[address] [facility] Main Operating Room [address] [place] [address] Chris Andre MD [address] [place] [address] ENDARTERECTOMY, FEMORAL WITH POSSIBLE FEM TO POP GFRNCC8909/21/2025 11:00 AM EST Follow-Up [facility] Nephrology [address] [place] [address] Batsheva Beckwith MD [address] [facility] 2 [facility] [place] [address] NamePriorityAssociated DiagnosesDate/TimeENDARTERECTOMY, FEMORAL Peripheral arterial occlusive disease Encounter for pre-operative examination 08/23/2025 7:30 AM ESTdocumented as of this encounter Goals GoalPatient Goal TypeAssociated ProblemsRecent ProgressPatient-Stated?Author Blood Pressure < 140/90 Blood Fahswyqg749/78(07/06/2025 12:48 PM EST)Cy Child, RNdocumented as of this encounter Visit Diagnoses Not on filedocumented in this encounter Care Teams Team MemberRelationshipSpecialtyStart DateEnd Date Susan Watsno MD [address] [place] [address] PCP - GeneralNurse Practitioner10/13/24documented as of this encounter
--- OUTSIDE RECORDS SUMMARY | 2025-07-12 22:43 | XMS_ITS | Clinical Summary ---
Author Organization [facility] Address [address] [facility] [place] [address] Phone Care Team Providers Care Precinct Police Captain Name Role Phone Unavailable Primary Care Provider Unavailabl e Social History Tobacco UseTypesPacks/DayYears UsedDateSmoking Tobacco: Never AssessedSex and Gender InformationValueDate RecordedSex Assigned at BirthNot on fileLegal Sex Male07/07/2022 9:17 AM ESTGender IdentityNot on fileSexual OrientationNot on file Plan of Treatment Not on file
--- OUTSIDE RECORDS SUMMARY | 2025-07-12 22:43 | XMS_ITS | Encounter Summary ---
Author Organization [facility] Address [address] [place] [address] Care Team Providers Care Hydro Generation Manager Name Role Phone Susan Watson MD Primary Care Provider [phone] Encounter Details DateTypeDepartmentCare Team (Latest Contact Info)Ppjjthlbbyj19/17/2025Travel Social History Tobacco UseTypesPacks/DayYears UsedDateSmoking Tobacco: FormerCigarettes Smokeless Tobacco: CurrentChewAlcohol UseStandard Drinks/WeekCommentsNot Currently0 (1 standard drink = 0.6 oz pure alcohol)PHQ-2AnswerDate Recorded Patient Health Questionnaire-2 Xatez00308/14/2024Humiliation, Afraid, Rape, and Kick questionnaireAnswerDate RecordedWithin the [...] times a week06/15/2025How often do you attend anabaptist or synagogue services?Never06/15/2025Do you belong to any clubs or organizations such as anabaptist groups, unions, fraternal or athletic groups, or school groups?No06/15/2025How often do you attend meetings of the clubs or organizations you belong to?Never06/15/2025re you , , , , never , or living with a partner?Hujcchmei90/04/2025UDIT-C AnswerDate RecordedQ1: How often do you have [...] medical care, and heating?Not hard at all06/29/2025 [facility] [place] [facility] Occupational Health - Occupational Stress Questionnaire AnswerDate RecordedDo you feel stress - tense, restless, nervous, or anxious, or unable to sleep at night because yourmind is troubled all the time - these days? Only a vevccw1106/15/2025HC UtilitiesAnswerDate RecordedIn the past 12 months has the [employer] gas, oil, or water [employer] threatened to shut off services in your [...] were you homeless or living in a mcfp (including now)?No06/29/2025Hunger Vital SignAnswerDate Recorded Within the past 12 months, you worried that your food would run out before you got the money to buymore.Never true06/29/2025Within the past 12 months, the food you bought just didn't last and you didn't have money to get more.Never true 06/29/2025Sex and Gender InformationValueDate RecordedSex Assigned at BirthMale 04/08/2025 7:15 AM EDTLegal SxnEisr5002/07/2022 10:15 PM EDTGender IdentityMale 04/08/2025 7:15 AM EDTSexual OrientationHeterosexual or Ldzhmtut35/28/2025 7:15 AM EDTdocumented as of this encounter Plan of Treatment DateTypeDepartmentCare Team (Latest Contact Info)Deyvityyvsn47/08/2025 1:45 PM ESTFollow-Up [facility] Vascular and Endovascular Surgery [address] [place] [address] Nadia Sheppard PA-C [address] [facility], [address] [place] [address] 07/22/2025 9:30 AM ESTFollow-Up [facility] Heart at [facility] [address] [place] [address] Sarah Tolliver MD [address] [facility] [address] [facility] [address] 07/29/2025 2:30 PM ESTFollow-Up [facility] Medical Pavilion Gastroenterology [address] [place] [address] Ebony Estevez, PARALEGAL LEGAL SECRETARY [address] [place], [place] [address] 08/23/2025 7:30 AM ESTHospital Encounter [facility] Main Operating Room [address] [facility] [address] [address] Chris Andre MD [address] [place] [address] 08/23/2025 7:30 AM EST - 08/23/2025 11:00 AM ESTSurgery [facility] Main Operating Room [address] [place] [address] Chris Andre MD [address] [place] [address] ENDARTERECTOMY, FEMORAL WITH POSSIBLE FEM TO POP IUNTPR9509/21/2025 11:00 AM EST Follow-Up [facility] Nephrology [address] [facility] [place] [address] Batsheva Beckwith MD [address] [facility] [address] [facility] [place] [address] NamePriorityAssociated DiagnosesDate/TimeENDARTERECTOMY, FEMORAL Peripheral arterial occlusive disease Encounter for pre-operative examination 08/23/2025 7:30 AM ESTdocumented as of this encounter Goals GoalPatient Goal TypeAssociated ProblemsRecent ProgressPatient-Stated?Author Blood Pressure < 140/90 Blood Atoeacrg717/78(07/06/2025 12:48 PM EST)Cy Child, JOHANAdocumented as of this encounter Visit Diagnoses Not on filedocumented in this encounter Care Teams Team MemberRelationshipSpecialtyStart DateEnd Date Susan Watson MD [address] [place] [address] PCP - GeneralNurse Practitioner10/13/24documented as of this encounter
--- OUTSIDE RECORDS SUMMARY | 2025-07-12 22:43 | XMS_ITS | Clinical Summary ---
Author Organization [facility] Address [address] [place] [address] Care Team Providers Care Arborer Name Role Phone Susan Watson MD Primary Care Provider [phone] Allergies No known active allergies Medications MedicationSigDispense QuantityRefillsLast FilledStart DateEnd DateStatus albuterol 90 mcg/actuation inhaler INHALE 1 PUFF BY MOUTH EVERY 4 HOURS FRJSAC9812/02/2021ctive aspirin 81 mg EC tablet Take 1 [...] mouth in the morning and at bedtime.Active mvcvsqusikb-zypocabdu-hylrytza (Trelegy Ellipta) 100-62.5-25 mcg blister with device [...] 18 tablet Discontinued Active Problems ProblemNoted DateDiagnosed KizeVnqebl70/18/2025hronic kidney disease, stage 3b 06/29/20255197Liunuuyysy43/18/5697Onwucmzspqya73/18/2025Other nondisplaced fracture of upper end of left humerus, subsequent encounter for fracture with routine jswuufl0206/29/2025Sigmoid /18/2025Ventral lscffq2806/29/2025 Overview (06/29/2025): Problem List clean-up per request of Phys. EHR Cmte Nhsxryrx52/18/2025AD (coronary artery disease) of artery bypass graft06/29/2025 Hypertensive chronic kidney disease with stage 1 through stage 4 chronic kidney disease, or unspecified chronic kidney ljaqwwq4306/29/2025losed fracture of greater tuberosity of left kmvmtgf4406/29/20254126Gvmueoudvsig30/18/2025Rectal /18/2025 Assessment & Plan (06/30/2025 2:16 PM [...] EST): EF 40-45% currently is euvolemic Renal gwgctc7906/29/2025 Assessment & Plan (06/30/2025 2:16 PM EST): [...] on aspirin, Plavix, metoprolol, atorvastatin and fenofibrate Kmbxfcqqii01/04/2025Other specified symptoms and signs involving the circulatory and respiratory gqqbtjq3706/14/2025S/P femoropopliteal bypass fxjhziq5706/14/2025 Assessment & Plan (06/30/2025 2:16 PM EST): - was on dual antiplatelet therapy plus Xarelto - vascular surgery following and recommending to continue plavix at this time Assessment & Plan (06/29/2025 3:05 AM EST): was on dual antiplatelet therapy plus Xarelto Consult vascular surgery for input regarding anticoagulation Encounter for pre-operative nddyglqabot66/28/2025Peripheral arterial occlusive aitglny2806/07/2025Reduced ejection fraction concurrent with and due to acute heart ozpllvg4204/29/20253017Kgjmxsqsbwiu89/12/2025 Assessment & Plan (06/07/2025 2:40 PM EDT): Relevant Hx: Can walk only 10 steps prior to stopping due to pain Course: Previous stenting of the right SFA, continues to be symptomatic Today's Plan: OR today for right fem-pop bypass with graft, 2g Ancef given for surgical prophylaxis Lower extremity pain, bknmscums84/31/2025 Assessment & Plan (06/07/2025 2:40 PM EDT): Plan same as below Chronic diastolic heart lyyweum8803/01/2025Pulmonary /21/2025 Cervical ucnlgnmwszq43/10/2025Neck pain11/19/2024Frequent falls06/17/2024 Functional gait vykhbkieffb38/06/2024hronic obstructive pulmonary disease, vavjlrnhcga36/31/2024 Assessment & Plan (06/30/2025 2:16 PM EST): [...] greater tuberosity of left humerus with routine zljelyy8509/19/2023GAD (generalized anxiety disorder)09/19/2023H/O: lung cancer 09/19/2023Traumatic complete tear of left rotator cuff09/19/2023oronary artery disease involving [place] coronary artery of [place] heart without angina pectoris 09/19/2023 Assessment & [...] (mild cognitive impairment)2Recurrent major depression in partial lrnrnxjne99/01/2022Recurrent major depressive disorder, in full remission 04/12/2022Hypertensive aupuvpbv24/17/2014 Assessment & Plan (06/30/2025 2:16 PM EST): - continue amlodipine, metoprolol - Blood pressure within acceptable range on 06/30 Assessment & Plan (06/29/2025 3:05 AM EST): continue amlodipine, metoprolol Abnormal results of cardiovascular function kgarcag6309/30/2013 Overview (10/13/2024): MILD INFERIOR AND ANTERIOR ISCHEMIA EF 52% Chest pain09/18/2013Dyspnea and respiratory cvhbrutukxzez53/07/2014 Overview (10/13/2024): 66 pk/yr history of smoking. Quit in 1994, when diagnosed with NSCLC and treated with RULobectomy and XRT. Also has extensive coronary disease, with CABG. Sees cardiology at [place]. Anxiety, HTN, CKD IIIb. PCP started albuterol [...] without BD response. Atherosclerosis of arteries of pvywaitlzir86/14/2013Intermittent claudication 08/25/2012Peripheral vascular giisjth8408/25/2012 Assessment & Plan (06/30/2025 2:16 PM EST): - was on dual antiplatelet therapy plus Xarelto - vascular surgery following and recommending to continue plavix at this time Assessment & Plan (06/29/2025 3:05 AM EST): was on dual antiplatelet therapy plus Xarelto Consult vascular surgery for input regarding anticoagulation Gastroesophageal reflux disease without rhffjtusckv67/07/3679Bwvufefg97/07/2012 Mixed tofkennplirkvv31/07/2012 Assessment & Plan (06/30/2025 2:16 PM EST): - continue atorvastatin and fenofibrate Assessment & Plan (06/29/2025 3:05 AM EST): continue atorvastatin and fenofibrate Coronary ikkexqnmuegykzv27/07/2012Primary yypxtcpckbcg83/07/2012 Resolved Problems ProblemNoted DateDiagnosed DateResolved DateEncounter for pre-operative dqfrjhhplyt77 Encounters DateTypeDepartmentCare AiekDivtfpkrhed54/25/2025 1:00 PM ESTFollow-Up [facility] [address] [address] Batsheva Beckwith MD Chronic kidney disease, stage 3b ([facility]/HCC) (Primary Dx); Electrolyte imbalance; Anemia due to stage 3b chronic kidney disease ([facility]/HCC); Essential hypertension; HFrEF (heart failure with reduced ejection fraction) ([facility]); Peripheral arterial occlusive disease; Kidney disease, chronic, stage IV (GFR 15-29 ml/min) ([facility]); Ozrbqymertab51/24/2025 2:35 PM ESTLab [facility] Outpatient Draw Station [address] [place] [phone] Lower GI bleed07/05/2025 2:15 PM ESTFollow-Up [facility] Heart [facility] Center Vascular and Endovascular Surgery [address] [place] [address] Nadia Sheppard PA-C Postoperative wound dehiscence, subsequent encounter (Primary Dx); PAOD (peripheral arterial occlusive disease)07/02/2025Telephone [facility] HVCU [address] [place] [address] Brianne Morales, RN Hospital Follow-up07/02/2025Telephone [facility] Heart at [address] [address] Elza Butt MA 07/01/2025 1:44 PM ESTAnesthesia Event [facility] Invasive Surgery [facility] [address] [place] [address] Melody Cortes MD Kwak, Eun Seo, MD 07/01/20257277Ywrezw02/19/2025 2:08 PM ESTAnesthesia Event [facility] Surgery [facility] [address] [place] [address] Melody Cortes MD Stimes, Nicholas, MD 06/30/20258395Vrdcmp26/17/2025 5:59 PM EST - 07/01/2025 6:53 PM ESTHospital Encounter [facility] HVCU [address] [place] [address] Cleopatra Curiel MD Horani, Omar, MD Chang, Kyu Chul, MD Lower GI bleed (Primary Dx); Diverticular hemorrhage; Metabolic acidosis Discharge Disposition: Home or Self Care ()06/28/20256456Hfcbkt57/17/2025Orders Only [facility] Infectious Disease [address] [facility], [address] [place] [address] Carolyn Romo MA 06/28/2025Results Follow-Up [facility] [address] [facility], [address] [place] [address] Carolyn Romo MA Basic metabolic panel, Magnesium, Phosphorus, CBC06/26/2025 1:20 PM EST - 06/26/2025 8:38 PM ESTEmergency [facility] Emergency [address] [place] [address] Brayan Gutierrez MD Dislocation of finger, initial encounter (Primary Dx); Peripheral arterial disease; Fall, initial encounter Discharge Disposition: Home or Self Care ()06/26/20254009Dbzkww35/14/2025 3:05 PM ESTLab [facility] Outpatient Draw Station [address] [place] [phone] Chronic kidney disease, unspecified CKD stage; Peripheral arterial occlusive disease; Encounter for pre-operative hjputofgxqf87/14/2025 2:00 PM ESTFollow-Up [facility] Heart [facility] Vascular Center Vascular and Endovascular Surgery [address] [place] [address] Nadia Sheppard PA-C Postoperative wound dehiscence, subsequent encounter (Primary Dx); PAOD (peripheral arterial occlusive disease); Dehiscence of operative wound, subsequent urcvopauz48/10/2025Orders Only [facility] Pre-Anesthesia Clinic [address] [place] [phone] Chasity Bryant RN 06/15/2025 6:56 PM EST - 06/19/2025 6:55 PM ESTHospital Encounter [facility] 4CD [address] [place] [address] Damaris Gee PA-C Nazzal, Munier, MD Cellulitis (Primary Dx); Wound infection after surgery Discharge Disposition: Home or Self Care ()06/15/20259402Fmpfgo98/03/2025 2:00 PM ESTFollow-Up [facility] Vascular and Endovascular Surgery [address] [place] [address] Mala Cooper NP Other specified symptoms and signs involving the circulatory and respiratory systems (Primary Dx); Claudication; S/P femoropopliteal bypass waaoqzy4006/12/2025 1:37 AM EDT - 06/12/2025 2:29 AM EDTEmergency [facility] Emergency [address] [place] [address] Karan Fuller MD Encounter for postoperative wound check (Primary Dx) Discharge Disposition: Home or Self Care ()06/12/20257880Xhvpho23/28/2025Orders Only [facility] Vascular and Endovascular Surgery [address] [place] [address] Jessica Fatima MA Peripheral arterial occlusive disease (Primary Dx); Encounter for pre-operative ehkcaxvefet68/28/2025Orders Only [facility] [address] [facility] [address] Carolyn Romo MA 06/07/2025 2:51 PM EDTAnesthesia Event [facility] Main Operating Room [address] [place] [address] Trang Chen MD Meisler, Adam, MD 06/07/2025 11:00 AM EDT - 06/07/2025 2:00 PM EDTSurgery [facility] Main Operating Room [address] [place] [address] Chris Andre MD Right Femoral- Popliteal Bypass with 8mm Propaten Graft above the knee [93176 (CPT??)]06/07/2025 9:26 AM EDT - 06/09/2025 7:30 PM EDTHospital Encounter [facility] 4AB Urology [address] [place] [address] Chris Andre MD Peripheral arterial occlusive disease (Primary Dx); Lower extremity pain, bilateral; Severe claudication; Encounter for pre-operative examination; Lower limb ischemia; Atherosclerosis of arteries of extremities Discharge Disposition: Home or Self Care (01)06/07/20250335Unsxkp32/24/2025Telephone [facility] at [address] [phone] Batsheva Beckwith MD 06/02/2025Results Follow-Up [facility] [address] [address] Carolyn Romo MA Basic metabolic panel05/31/2025 11:55 AM EDTLab [facility] Outpatient Draw Station [address] [place] [address] Wvknzszuqcay60/16/2025Results Follow-Up [facility] [address] [address] Batsheva Beckwith MD Urinalysis with microscopic, Microalbumin, urine, random, Creatinine, urine, random, Additional followed-up results: 2:55 PM EDTLab [facility] Outpatient Draw Station [address] [place] [address] Kidney disease, chronic, stage IV (GFR 15-29 ml/min) (CMS/HCC); Essential hypertension; Lzrehulvaddp81/15/2025 1:00 PM EDTOffice Visit [facility] [address] [address] Batsheva Beckwith MD Kidney disease, chronic, stage IV (GFR 15-29 ml/min) (CMS/HCC) (Primary Dx); Essential hypertension; Hyperkalemia; HFrEF (heart failure with reduced ejection fraction) (CMS/HCC); Peripheral arterial bdwphpt0905/25/2025Telephone [facility] Pre-Anesthesia Clinic [address] [place] [address] [place] [address] Christopher Gongora CNP 05/24/2025 2:35 PM EDTLab [facility] Medical Pavilion Draw Station [address] [place] [address] [place] [address] Lower extremity pain, bilateral; Severe claudication; Encounter for pre-operative vzejsazeolo70/13/2025 1:30 PM EDTPre-Admission Testing [facility] Pre-Anesthesia Clinic [address] [place] [address] [place] [address] 05/24/20251002Mleywb32/06/2025Telephone [facility] Nephrology [address] [facility] [address] [facility] [address] [place] [address] Batsheva Beckwith MD 05/14/2025bstract [facility] AUTHORIZATION DEPARTMENT [address] [place] [address] Chris Andre MD 05/11/2025 10:30 AM EDT - 05/11/2025 11:30 AM EDTSurgery [facility] Heart and Vascular Center Vascular Lab [address] [place] [address] Sarah Tolliver MD Coronary otpvaofwhnc27/30/2025 7:13 AM EDT - 05/11/2025 6:03 PM EDTHospital Encounter [facility] Heart critical access hospital Vascular Center Vascular Lab [address] [place] [address] Sarah Tolliver MD Reduced ejection fraction concurrent with and due to acute heart failure (CMS/HCC) Discharge Disposition: Home or Self Care ()05/11/20251060Zaaghk26/23/2025Travel 04/29/2025Telephone [place] [address] [place] [address] Elza Butt MA 04/29/2025Orders Only [facility] [address] [place] [address] Elza Butt MA Reduced ejection fraction concurrent with and due to acute heart failure (CMS/HCC) (Primary Dx)2025Orders Only [facility] [address] [place] [address] Elza Butt MA Kidney disease, chronic, stage IV (GFR 15-29 ml/min) (CMS/HCC) (Primary Dx) 2025Telephone [facility] [address] [place] [address] Elza Butt MA 04/27/2025Orders Only [facility] [address] [place] [address] Ele Iraheta MD 04/23/2025Orders Only [facility] Vascular and Endovascular Surgery [address] [place] [address] Jessica Fatima MA Severe claudication (Primary Dx); Encounter for pre-operative mhiswwvmjvg18/12/2025Orders Only [facility] Vascular and Endovascular Surgery [address] [place] [address] Jessica Fatima MA Severe claudication (Primary Dx); Lower extremity pain, bilateral; Encounter for pre-operative bspgmjquufv59/10/2025 3:15 PM EDTOffice Visit [facility] Vascular and Endovascular Surgery [address] [place] [address] Chris Andre MD Claudication (Primary Dx)04/21/2025Telephone [facility] [address] [place] [address] Melody Cheung MA 04/20/2025Orders Only [facility] [address] [place] [address] Elza Butt MA 04/19/2025Telephone [facility] [address] [place] [address] Kya Sheppard MA 04/15/2025 - 04/15/2025 11:59 PM EDTHospital Encounter [facility] Radiology External Films [address] [place] [address] Discharge Disposition: Home or Self Care (01)from [...] times a week06/15/2025How often do you attend spiritism or alevism services?Never 06/15/2025Do you belong to any clubs or organizations such as spiritism groups, unions, fraternal or athletic groups, or school groups?No06/15/2025How often do you attend meetings of the clubs or organizations you belong to?Never06/15/2025 Are you , , , , never , or living with a partner?Vrijjvyba91/04/2025UDIT-CAnswerDate RecordedQ1: How often do you have a [...] housing, medical care, and heating?Not hard at all06/29/2025[facility] [place] of Occupational Health - Occupational Stress QuestionnaireAnswerDate RecordedDo you feel stress - tense, restless, nervous, or anxious, or unable to sleep at night because yourmind is troubled all the time - these days?Only a zxmaww8106/15/2025HC UtilitiesAnswer Date RecordedIn the past 12 months has the [employer], gas, oil, or water [employer]6 threatened to shut off services in your [...] or living in a skilled nursing (including now)?No06/29/2025 Hunger Vital SignAnswerDate RecordedWithin the past 12 months, you worried that your food would run out before you got the money to buymore.Never true06/29/2025 Within the past 12 months, the food you bought just didn't last and you didn't have money to get more.Never true06/29/2025Sex and Gender InformationValueDate RecordedSex Assigned at JmpoaTbyg77/28/2025 7:15 AM EDTLegal AadUadh0002/07/2022 10:15 PM EDTGender OafviujvKxwg35/28/2025 7:15 AM EDTSexual Orientation Heterosexual or Tbepwqpi21/28/2025 7:15 AM EDT Last Filed Vital Signs Vital SignReadingTime TakenCommentsBlood Atspbquf680/7807/06/2025 12:48 PM EST Rkpen432307/06/2025 12:48 PM JJCAzuozoadlwt00.9 ??C (96.6 ??F)07/01/2025 4:16 PM ESTRespiratory Sgjo688109/04/2024 2:07 PM ESTOxygen Nzqnppckfa84%07/06/2025 12:48 PM ESTInhaled Oxygen Concentration--Saevrl29 kg (165 lb 4.8 oz)07/06/2025 12:48 PM VWYMhlwhe515.3 cm (5' 9 )07/06/2025 12:48 PM ESTBody Mass Index24.41 07/06/2025 12:48 PM EST Plan of Treatment DateTypeDepartmentCare Team (Latest Contact Info)Hrezjyupuix94/08/2025 1:45 PM ESTFollow-Up [facility] Heart [facility] Vascular Center Vascular and Endovascular Surgery [address] [place] [address] Nadia Sheppard PA-C [address] [place], [address] [address] 07/22/2025 9:30 AM ESTFollow-Up [facility] Heart at [facility] [address] [place] [address] Sarah Tolliver MD [address] [facility] [address] [place] [address] 07/29/2025 2:30 PM ESTFollow-Up [facility] Medical Pavilion Gastroenterology [address] [place] [address] Ebony Estevze, MÓNICA [address] [place], [place] [address] 08/23/2025 7:30 AM ESTHospital Encounter [facility] Main Operating Room [address] [place] [address] Chris Andre MD [address] [place] [address] 08/23/2025 7:30 AM EST - 08/23/2025 11:00 AM ESTSurgery [facility] Main Operating Room [address] [place] [address] [phone] Chris Andre MD [address] [place] [address] ENDARTERECTOMY, FEMORAL WITH POSSIBLE FEM TO POP BYDSLR5509/21/2025 11:00 AM EST Follow-Up [facility] Nephrology [address] [place] [address] Batsheva Beckwith MD [address] [facility] [address] [facility] [place] [address] NamePriorityAssociated DiagnosesDate/TimeENDARTERECTOMY, FEMORAL Peripheral arterial occlusive disease Encounter for pre-operative examination 08/23/2025 7:30 AM ESTHealth MaintenanceDue DateLast DoneCommentsCT Colonography 1953FIT-DNA1953FIT1953Medicare Annual Wellness (AWV)1955 Fdccfernogrev1953dult Wqrhgsg9204/28/1975Zoster Vaccines (1 of 2)2003 COVID-19 Vaccine ( season), 11/08/2020, 10/19/2020epression Cdeigbjgb22/10/20247197QPGD45Fall Risk Ytnqfdxqq00/3960Qimyletmtbe90, 06/30/2025, 1Colorectal Cancer Vhtnaxqfj29/20/2035Pneumococcal Vaccine: 50+ Years Okefoeppp73/23/2020, 08/27/2019Influenza FmkrnsqRrbumvfbq01/08/2025, 05/23/2021, 08/03/2020HIB VaccinesAged OutNo longer eligible based [...] ProblemsRecent ProgressPatient-Stated?Author Blood Pressure < 140/90 Blood Cdnmfrbb014/78(07/06/2025 12:48 PM EST)Cy Child RN Medical Devices ImplantedTypeAreaManufacturerDevice IdentifierShelf Expiration DateModel / Serial / LotGraft,Thin-Wall,8x80cm,70cm - [id number] - [id number] Implanted:Qty: 1 on 06/07/2025 by Chris Andre [facility] Hospital[facility]agenRight: Desirae [id number] / [id number] / N/A Procedures Procedure NamePriorityDate/TimeAssociated PcbqzboxxOczyjiwtJMKYxhqvbk86/24/2025 1:47 PM EST Lower GI bleed BASIC METABOLIC MBGAIYsccgcc10/24/2025 1:47 PM EST Lower GI bleed BASIC METABOLIC HXUIUYZXD19/20/2025 4:17 PM EST DIAGNOSTIC UATKWLAYGMABeckvot38/20/2025 2:36 PM EST BLOOD GAS, VENOUSPending Nwkemozjx29/20/2025 11:28 AM EST POCT GLUCOSE METER UNSOLICITED KSZNATLHndabxp86/20/2025 9:23 AM EST HEMOGLOBIN AND HEMATOCRIT, BLOODPending Ztacrpvig01/20/2025 6:51 AM EST BASIC METABOLIC PANELSTAT Add-on07/01/2025 6:00 AM EST LIGHT GREEN JTGKktytsc84/20/2025 6:00 AM EST EXTRA YZXCVRseqtfb37/20/2025 6:00 AM EST POCT GLUCOSE METER UNSOLICITED JRGXIGQStwohjz64/19/2025 8:10 PM EST POCT GLUCOSE METER UNSOLICITED OLTTLAFTcifmsb88/19/2025 4:08 PM EST POCT GLUCOSE METER UNSOLICITED QTEZXULFvwmzte17/19/2025 3:46 PM EST POCT GLUCOSE METER UNSOLICITED SKJDXMBCjbsosb73/19/2025 3:24 PM EST POCT GLUCOSE METER UNSOLICITED OVEJIBYYdvcldp55/19/2025 3:01 PM EST DIAGNOSTIC CDRGGOSHRRXIostfkh80/19/2025 2:25 PM EST POCT GLUCOSE METER UNSOLICITED GUPOZDXAhqopxa09/19/2025 1:23 PM EST HLCNFBOKZXCEUJ65/18/2025 11:10 PM EST UOSDGVEOBSPGIJ49/18/2025 5:47 PM EST HEMOGLOBIN AND HEMATOCRIT, GJFVOIOGW21/18/2025 9:18 AM EST TRANSFUSE RED BLOOD VXBYIVjuzylu22/18/2025 5:50 AM ESTCBC WITH AUTO DIFFERENTIAL STAT108/29/2024 5:45 AM EST CBC AND SRNCGYGNOQPLFlwsqzc31/18/2025 5:45 AM EST COMPREHENSIVE METABOLIC CYCYHLqbjhij64/18/2025 5:45 AM EST TRANSFUSE RED BLOOD QHPFCMalxebj39/18/2025 3:00 AM ESTPREPARE RBCRoutine 06/29/2025 1:40 AM EST TYPE AND BIWBYZOVZM23/18/2025 12:33 AM EST HEMOGLOBIN AND HEMATOCRIT, AMCYJPKUM65/18/2025 12:33 AM EST CTA ABDOMEN PELVIS W IV CLDYSAUZZSPG41/17/2025 9:14 PM EST POCT OCCULT BLOOD RZUKDIVAN95/17/2025 7:15 PM EST CBC WITH AUTO NIBXBUYCWGPDKNBM17/17/2025 6:39 PM EST COMPREHENSIVE METABOLIC XHGDPWYRZ31/17/2025 6:39 PM EST CBC AND CEOBLXZOVEYBHTMS31/17/2025 6:39 PM EST HIGH SENSITIVITY TROPONIN ISTAT108/26/2024 4:40 PM EST CTA AORTA AND BILATERAL ILIOFEMORAL RUNOFF W IV IJFIEVKZBNZE67/15/2025 4:[address] CERVICAL SPINE WO IV EIPMAVPVXOWR33/15/2025 4:[address] HEAD WO IV XKQYJZVHHRLH79/15/2025 4:39 PM EST XR HAND 3+ VIEWS KVUPSCCS52/15/2025 3:45 PM EST CBC WITH AUTO APHEJEFFRCTFUYWY22/15/2025 2:45 PM EST CK TOTAL AND CKMBSTAT Add-on06/26/2025 2:45 PM EST HULCUFEJ94/15/2025 2:45 PM EST PROTIME-BBBLJIJ1206/26/2025 2:45 PM EST HIGH SENSITIVITY TROPONIN ISTAT108/26/2024 2:45 PM EST COMPREHENSIVE METABOLIC OIRXLRQUC98/15/2025 2:45 PM EST CBC AND LXLXIFMRPBIYCJMM86/15/2025 2:45 PM EST XR CHEST 1 APTXOUUL77/15/2025 2:20 PM EST XR PELVIS 1-2 NOIEZZVTW28/15/2025 2:20 PM EST XR HAND 3+ VIEWS MFAEXRFE08/15/2025 2:03 PM EST PROTIME-ENAJvhlpgd96/14/2025 3:29 PM EST Peripheral arterial occlusive disease Encounter for pre-operative examination AWCZJnlegim55/14/2025 3:29 PM EST Peripheral arterial occlusive disease Encounter for pre-operative examination MKNEpvfouh29/14/2025 3:29 PM EST Chronic kidney disease, unspecified CKD stage ECPIHLVJIMEwhtywu00/14/2025 3:29 PM EST Chronic kidney disease, unspecified CKD stage DBEEQWSHGOszdvnv70/14/2025 3:29 PM EST Chronic kidney disease, unspecified CKD stage BASIC METABOLIC TGDQJJzrhanq31/14/2025 3:29 PM EST Chronic kidney disease, unspecified CKD stage MAGNESIUMPending Aoaotdimk54/08/2025 4:47 AM EST POCT GLUCOSE METER UNSOLICITED WXEVJXQKdyhyhm64/07/2025 10:12 PM EST MAGNESIUMPending Vacaygdgn54/07/2025 5:07 AM EST BASIC METABOLIC PANELPending Rmmzkmysz01/07/2025 5:07 AM EST CBCPending Kcpitonjv67/07/2025 5:07 AM EST VANCOMYCIN TIMEDPending Mqcqxskel64/06/2025 4:31 AM EST MAGNESIUMPending Wtzxftubn19/06/2025 4:31 AM EST BASIC METABOLIC PANELPending Gbqxbisnu08/06/2025 4:31 AM EST CBCPending Qjvczgokn29/06/2025 4:31 AM EST VANCOMYCIN IBPIELrqmz27/05/2025 9:11 PM EST CYGUWXSPWDcrxzkc89/05/2025 5:08 AM EST BASIC METABOLIC HYCDSHugpepn88/05/2025 5:08 AM EST LSFXbgnwhp08/05/2025 5:[address] HEAD WO IV RMEODMAHAMSO85/04/2025 7:57 PM EST CBC WITH AUTO VBRLTMAWFBNCOXLY83/04/2025 7:37 PM EST LACTIC ACID WITH 4 HOUR CTZIONNYEY02/04/2025 7:37 PM EST BASIC METABOLIC PECKIAHQY67/04/2025 7:37 PM EST CBC AND NKXFEOADBMJTNDKM57/04/2025 7:37 PM EST BLOOD OYGOGHFLMEJ34/04/2025 7:37 PM EST BLOOD MWPLGFQSTKE03/04/2025 7:37 PM EST WOUND GUXTGDYGDKG82/04/2025 5:59 PM EST PREPARE MZRBvdvvez82/30/2025 7:53 AM EDT VASC LOWER EXTREMITY ARTERIAL DUPLEX BYPASS GRAFT JRKQUGiroaci73/29/2025 9:51 AM EDT LIGHT GREEN OYIZgwujni45/29/2025 3:56 AM EDT EXTRA ARLGFYzgklpg58/29/2025 3:56 AM EDT CBCPending Rdvevavvh62/29/2025 3:56 AM EDT BHJWrknide86/28/2025 4:11 AM EDT XZZYGEZWSWAezkfyx43/28/2025 4:11 AM EDT QSHMYMSJZSeelgac93/28/2025 4:11 AM EDT BASIC METABOLIC MNVINLhmxmtp07/28/2025 4:11 AM EDT SFQETIWEBBRUJL99/27/2025 8:18 PM EDT MEMQDQPBXGZPI71/27/2025 8:18 PM EDT BASIC METABOLIC FWQWKKQUN55/27/2025 8:18 PM EDT UJXGWJE8506/07/2025 8:18 PM EDT INVASIVE VASCULAR DYYPPGGBNDydhswi86/27/2025 6:16 PM EDT Lower extremity pain, bilateral Severe claudication Encounter for pre-operative examination POCT ACTIVATED CLOTTING TIME UNSOLICITED YWJQVQGKbqqxdf25/27/2025 5:44 PM EDT HISTOLOGY - TISSUE VBJNIakzwoc98/27/2025 5:44 PM EDT Lower extremity pain, bilateral Severe claudication Encounter for pre-operative examination ABG COMPLETE UNSOLICITED EVLSVOVXkugnwt37/27/2025 5:43 PM EDT MN AN ELECTIVE ENDOTRACHEAL AYDCWFCuzpoka14/27/2025 3:09 PM EDT ENDARTERECTOMY, ZJASJQA1806/07/2025 2:51 PM EDT Lower extremity pain, bilateral Severe claudication Encounter for pre-operative examination MN BYPASS W/VEIN FEMORAL-HUKHMIHZB73/27/2025 2:51 PM EDT Lower extremity pain, bilateral Severe claudication Encounter for pre-operative examination ANESTHESIA ARTERIAL LINE UJPEMOZBIBancxfg97/27/2025 12:38 PM EDT POCT GLUCOSE METER UNSOLICITED EBWYGEETaetshu00/27/2025 9:57 AM EDT BASIC METABOLIC HGKFXTlwokob77/20/2025 11:59 AM EDT Hyperkalemia PTH, RNTSCAXpepwth50/15/2025 2:54 PM EDT Kidney disease, chronic, stage IV (GFR 15-29 ml/min) ([facility]/HCC) Essential hypertension Hyperkalemia VITAMIN D 25 DPDSNFKUralzoe35/15/2025 2:54 PM EDT Kidney disease, chronic, stage IV (GFR 15-29 ml/min) (CMS/HCC) Essential hypertension Hyperkalemia DSTAXPEYUOKddjoes13/15/2025 2:54 PM EDT Kidney disease, chronic, stage IV (GFR 15-29 ml/min) ([facility]) Essential hypertension Hyperkalemia XJSKQQJPZWyhxhjr41/15/2025 2:54 PM EDT Kidney disease, chronic, stage IV (GFR 15-29 ml/min) ([facility]) Essential hypertension Hyperkalemia WDSBeajmpt42/15/2025 2:54 PM EDT Kidney disease, chronic, stage IV (GFR 15-29 ml/min) ([facility]) Essential hypertension Hyperkalemia BASIC METABOLIC FVLYLKgiosol98/15/2025 2:54 PM EDT Kidney disease, chronic, stage IV (GFR 15-29 ml/min) ([facility]) Essential hypertension Hyperkalemia CREATININE, URINE, PUQOYMZsdqkwg38/15/2025 2:54 PM EDT Kidney disease, chronic, stage IV (GFR 15-29 ml/min) ([facility]) Essential hypertension Hyperkalemia MICROALBUMIN, URINE, ZZQNCJXgoydql78/15/2025 2:54 PM EDT Kidney disease, chronic, stage IV (GFR 15-29 ml/min) ([facility]) Essential hypertension Hyperkalemia URINALYSIS WITH AHAFCPFLWIWBpxlcmw77/15/2025 2:54 PM EDT Kidney disease, chronic, stage IV (GFR 15-29 ml/min) ([facility]) Essential hypertension Hyperkalemia PREPARE HQCAXVB84/13/2025 4:02 PM EDT TYPE AND CHLDCGCaszboy27/13/2025 2:48 PM EDT Severe claudication Encounter for pre-operative examination GNVPEryvxzq13/13/2025 2:48 PM EDT Lower extremity pain, bilateral Severe claudication Encounter for pre-operative examination PROTIME-DATGioiyqq31/13/2025 2:48 PM EDT Lower extremity pain, bilateral Severe claudication Encounter for pre-operative examination BASIC METABOLIC PXJDLHnmwdhs06/13/2025 2:48 PM EDT Lower extremity pain, bilateral Severe claudication Encounter for pre-operative examination YJDDeggahp49/13/2025 2:48 PM EDT Lower extremity pain, bilateral Severe claudication Encounter for pre-operative examination MRSA/MSSA DNA KPEGNMurlsak60/13/2025 2:48 PM EDT Lower extremity pain, bilateral Severe claudication Encounter for pre-operative examination CORONARY BYPASS GRAFT LECUWCtixlmf88/30/2025 12:47 PM EDT Reduced ejection fraction concurrent with and due to acute heart failure (CMS/HCC) CORONARY JGFLCRXRVCEHzvojgw84/30/2025 12:47 PM EDT Reduced ejection fraction concurrent with and due to acute heart failure (CMS/HCC) ECG 12-USYAJtpkftj88/30/2025 8:08 AM EDT COMPLETE TRANSTHORACIC ECHO (TTE) W/WO IMAGING AGENT, STRAIN, 3D, BUBBLE STUDY Icgkogn3204/27/2025 5:03 PM EDTLEXISCAN STRESS MYOCARDIAL PERFUSION IMAGINGRoutine 04/20/2025 3:22 PM EDTCT TRANSFER OF OUTSIDE FLLUMYqrimik13/04/2025 12:00 AM EDT from Last 3 Months Results * (ABNORMAL) CBC (07/05/2025 1:47 PM EST) Only the most recent of10 resultswithin the time period is included. ComponentValueRef RangeTest MethodAnalysis TimePerformed AtPathologist Signature Auto WBC4.414.00 - 10.60 10*3/uL07/05/2025 2:05 PM [facility] ([facility]) RBC3.46(L)4.20 - 5.70 10*6/uL07/05/2025 2:05 PM [facility] ([facility]) Lkebnugxpt53.1(L)13.0 - 17.0 g/dL07/05/2025 2:05 PM [facility] ([facility])Piikxecsnq69.3(L)39.0 - 50.0 %07/05/2025 2:05 PM [facility] ([facility])MCV93.482.0 - 98.0 fL07/05/2025 2:05 PM [facility] ([facility])MCH 29.227.0 - 33.0 pg07/05/2025 2:05 PM [facility] ([facility])MCHC31.3(L) 32.0 - 35.0 g/dL07/05/2025 2:05 PM [facility] ([facility])RDW15.1(H)11.5 - 15.0 %07/05/2025 2:05 PM [facility] ([facility])Dhgpjngwf699(L)150 - 400 10*3/uL07/05/2025 2:05 PM [facility] ([facility])Specimen (Source) Anatomical Location / LateralityCollection Method / VolumeCollection Time Received TimeBloodVenous blood specimen / UnknownVenipuncture / Unknown 07/05/2025 1:47 PM EST07/05/2025 1:54 PM EST Narrative Authorizing ProviderResult TypeResult StatusKyu Sammy Newsome MDLAB BLOOD ORDERABLESFinal ResultPerforming OrganizationAddressCity/State/ZIP CodePhone Number [facility] ([facility]) [address] [place] [address] * (ABNORMAL) Basic metabolic panel (07/05/2025 1:47 PM EST) Only the most recent of13 resultswithin the time period is included. ComponentValueRef RangeTest MethodAnalysis TimePerformed AtPathologist Signature Ilomie819661 - 145 mmol/L109/04/2024 2:18 PM [facility] ([facility]) Potassium4.83.5 - 5.1 mmol/L109/04/2024 2:18 PM [facility] ([facility]) Wlslhqjk456(H)98 - 107 mmol/L109/04/2024 2:18 PM [facility] ([facility])CO2 2421 - 31 mmol/L109/04/2024 2:18 PM [facility] ([facility])RBH214 - 25 mg/dL07/05/2025 2:18 PM [facility] ([facility])Creatinine1.45(H)0.70 - 1.30 mg/dL07/05/2025 2:18 PM [facility] ([facility])Kzlvafy4708 - 100 mg/dL07/05/2025 2:18 PM [facility] ([facility])Calcium8.68.6 - 10.3 mg/dL 07/05/2025 2:18 PM [facility] ([facility])Anion Gap97 - 20 mmol/L 07/05/2025 2:18 PM [facility] ([facility])eGFR51.2(L)>60.0 mL/min/1.73m*2 07/05/2025 2:18 PM [facility] ([facility])Comment:The [facility]???s estimated glomerular filtration rate (eGFR) will [...] group of individuals. BUN/Creatinine Ratio15. 2:18 PM [facility] ([facility])Specimen (Source)Anatomical Location / LateralityCollection Method / VolumeCollection TimeReceived TimeBloodVenous blood specimen / UnknownVenipuncture / Unknown 07/05/2025 1:47 PM EST07/05/2025 1:53 PM EST Narrative Authorizing ProviderResult TypeResult StatusKyu Sammy Newsome MDLAB BLOOD ORDERABLESFinal ResultPerforming OrganizationAddressCity/State/ZIP CodePhone Number [facility] ([facility]) [address] [place] [address] * Diagnostic Colonoscopy (07/01/2025 2:36 PM EST)Anatomical [...] on 07/01/25 Attending Physician: ??Christie Horton MD Construction Trench Digger: ??Maria Eugenia Dodd MD Procedure Details Informed [...] AtPathologist SignaturepH, Ven7.28(L)7.31 - 7.41108/31/2024 11:42 AM [facility] RESPIRATORY THERAPYpCO2, Vcu7279 - 50 mmHg 07/01/2025 11:42 AM [facility] RESPIRATORY THERAPYpO2, Ven26(L)35 - 45 mmHg 07/01/2025 11:42 AM [facility] RESPIRATORY THERAPYO2 Sat, Ven34.0(LL)65.0 - 75.0 %07/01/2025 11:42 AM [facility] RESPIRATORY THERAPYHCO3, Gmoqst09.2mmol/L 07/01/2025 11:42 AM [facility] RESPIRATORY THERAPYOxyhemoglobin, Jybhmf06.3% 07/01/2025 11:42 AM [facility] RESPIRATORY THERAPYpH Venous Temp Adjusted7.28(L) 7.31 - 7.41108/31/2024 11:42 AM [facility] RESPIRATORY THERAPYpCO2 Venous Temp Djkqydop4785 - 50 mmHg07/01/2025 11:42 AM [facility] RESPIRATORY THERAPYpO2 Venous Temp Uhgbvuve29(L)35 - 45 mmHg07/01/2025 11:42 AM [facility] RESPIRATORY ULPSVNSClrzomsguks33.0??07/01/2025 11:42 AM [facility] RESPIRATORY THERAPY Specimen (Source)Anatomical Location / LateralityCollection Method / Volume Collection TimeReceived TimeBloodVenous blood specimen / UnknownVenipuncture / Jyquoxm0107/01/2025 11:28 AM EST07/01/2025 11:38 AM EST Narrative Authorizing ProviderResult TypeResult StatusFrench CEE BLOOD ORDERABLESFinal ResultPerforming OrganizationAddressCity/State/ZIP CodePhone Number [facility] RESPIRATORY THERAPY [address] [place] [address], [place] * POCT glucose meter (07/01/2025 9:23 AM EST) Only the most recent of9 resultswithin the time period is included. ComponentValueRef RangeTest MethodAnalysis TimePerformed AtPathologist Signature Glucose PXK5048 - 105 mg/dL07/01/2025 9:34 AM [facility] ([facility]) Comment:jdlugolSpecimen (Source)Anatomical Location / LateralityCollection Method / VolumeCollection TimeReceived TimeBloodCapillary blood specimen / Wwicdnr1107/01/2025 9:23 AM EST07/01/2025 9:34 AM EST Narrative [facility] ([facility]) - 07/01/2025 9:34 AM EST Waived Testing in the ED is performed under the ED CLIA certificate #[id number]. Authorizing ProviderResult TypeResult StatusFrench CEE BLOOD ORDERABLESFinal ResultPerforming OrganizationAddressCity/State/ZIP CodePhone Number [facility] ([facility]) [address] [place] [address] * (ABNORMAL) Hemoglobin and hematocrit, blood (07/01/2025 6:51 AM EST) Only the most recent of3 resultswithin the time period is included. ComponentValueRef RangeTest MethodAnalysis TimePerformed AtPathologist Signature Jxwqkbrymn66.3(L)13.0 - 17.0 g/dL07/01/2025 7:16 AM [facility] ([facility])Yjdcwgwuic95.8(L)39.0 - 50.0 %07/01/2025 7:16 AM [facility] ([facility])Specimen (Source)Anatomical Location / LateralityCollection Method / VolumeCollection TimeReceived TimeBloodVenous blood specimen / Unknown Venipuncture / Rtokorx0307/01/2025 6:51 AM EST07/01/2025 6:56 AM EST Narrative Authorizing ProviderResult TypeResult StatusMunier Nazzal MDLAB BLOOD ORDERABLES Final ResultPerforming OrganizationAddressCity/State/ZIP CodePhone Number [facility] ([facility]) [address] [place] [address] * Light Green Top (07/01/2025 6:00 AM EST) Only the most recent of2 resultswithin the time period is included. ComponentValueRef RangeTest MethodAnalysis TimePerformed AtPathologist Signature Extra TubeHold for add-ons.07/01/2025 8:01 AM [facility] ([facility]) Comment:Auto resulted.Specimen (Source)Anatomical Location / Laterality Collection Method / VolumeCollection TimeReceived TimeBloodVenous blood specimen / Yahrbye5707/01/2025 6:00 AM EST07/01/2025 6:57 AM EST Narrative Authorizing ProviderResult TypeResult StatusFrench Newsome FLLAB BLOOD ORDERABLESFinal ResultPerforming OrganizationAddressCity/State/ZIP CodePhone Number [facility] ([facility]) [address] [place] [address] * Diagnostic Colonoscopy (06/30/2025 2:25 PM EST)Anatomical [...] on 06/30/25 Attending Physician: ??Kortney Gandhi MD Construction Trench Digger: ??None Procedure Details Informed consent was obtained [...] included. ComponentValueRef RangeTest MethodAnalysis TimePerformed AtPathologist Signature Tfivrwlvyt33.5(L)13.0 - 17.0 g/dL06/30/2025 12:47 AM [facility] ([facility])Specimen (Source)Anatomical Location / LateralityCollection Method / VolumeCollection TimeReceived TimeBloodVenous blood specimen / Unknown Venipuncture / Rqelafz9406/29/2025 11:10 PM EST06/30/2025 12:13 AM EST Narrative Authorizing ProviderResult TypeResult StatusGerman CEE BLOOD ORDERABLES Final ResultPerforming OrganizationAddressCity/State/ZIP CodePhone Number [facility] ([facility]) [address] [place] [address] * Transfuse RBC (06/29/2025 8:09 AM EST) Only the most recent of2 resultswithin the time period is included. Narrative Authorizing ProviderResult TypeResult StatusIdwilfredo VELAOOD TRANSFUSION ORDERABLESFinal Result * (ABNORMAL) CBC auto differential (06/29/2025 5:45 AM EST) Only the most recent of4 resultswithin the time period is included. ComponentValueRef RangeTest MethodAnalysis TimePerformed AtPathologist Signature Auto WBC4.904.00 - 10.60 10*3/uL06/29/2025 6:07 AM [facility] ([facility]) RBC3.01(L)4.20 - 5.70 10*6/uL06/29/2025 6:07 AM [facility] ([facility]) Hemoglobin8.9(L)13.0 - 17.0 g/dL06/29/2025 6:07 AM [facility] ([facility]) Ckvtwnzmjp06.6(L)39.0 - 50.0 %06/29/2025 6:07 AM [facility] ([facility]) MCV95.082.0 - 98.0 fL06/29/2025 6:07 AM [facility] ([facility])MCH29.627.0 - 33.0 pg06/29/2025 6:07 AM [facility] ([facility])MCHC31.1(L)32.0 - 35.0 g/dL06/29/2025 6:07 AM [facility] ([facility])RDW15.3(H)11.5 - 15.0 % 06/29/2025 6:07 AM [facility] ([facility])Neutrophils %75.1(H)40.0 - 72.0 %06/29/2025 6:07 AM [facility] ([facility])Lymphocytes %12.7(L)20.0 - 45.0 %06/29/2025 6:07 AM [facility] ([facility])Monocytes %7.35.0 - 12.0 % 06/29/2025 6:07 AM [facility] ([facility])Eosinophils %3.30.0 - 6.0 % 06/29/2025 6:07 AM [facility] ([facility])Basophils %0.80.0 - 1.0 % 06/29/2025 6:07 AM [facility] ([facility])Neutrophils Absolute3.681.60 - 7.60 10*3/uL06/29/2025 6:07 AM [facility] ([facility])Lymphocytes Absolute 0.62(L)1.20 - 4.00 10*3/uL06/29/2025 6:07 AM [facility] ([facility]) Monocytes Absolute0.360.10 - 1.00 10*3/uL06/29/2025 6:07 AM [facility] ([facility])Eosinophils Absolute0.160.00 - 0.50 10*3/uL06/29/2025 6:07 AM [facility] ([facility])Basophils Absolute0.040.00 - 0.20 10*3/uL06/29/2025 6:07 AM [facility] ([facility])Uqkaaezju471(L)150 - 400 10*3/uL06/29/2025 6:07 AM [facility] ([facility])nRBC %0.00 %06/29/2025 6:07 AM [facility] ([facility])Immature Granulocytes %0.80.0 - 1.0 %06/29/2025 6:07 AM [facility] ([facility])Immature Granulocytes Absolute0.040.00 - 0.20 10*3/uL06/29/2025 6:07 AM [facility] ([facility])Specimen (Source)Anatomical Location / LateralityCollection Method / VolumeCollection TimeReceived TimeBloodVenous blood specimen / UnknownVenipuncture / Jicblxf4006/29/2025 5:45 AM EST06/29/2025 5:59 AM EST Narrative Authorizing ProviderResult TypeResult StatusIdrees Vivek FLTAMMIE BLOOD ORDERABLESFinal ResultPerforming OrganizationAddressCity/State/ZIP CodePhone Number [facility] ([facility]) [address] [place] [address] * (ABNORMAL) Comprehensive metabolic panel (06/29/2025 5:45 AM EST) Only the most recent of3 resultswithin the time period is included. ComponentValueRef RangeTest MethodAnalysis TimePerformed AtPathologist Signature Imhesc071642 - 145 mmol/L108/29/2024 6:30 AM [facility] ([facility]) Potassium5.13.5 - 5.1 mmol/L108/29/2024 6:30 AM [facility] ([facility]) Aopngsau807(H)98 - 107 mmol/L108/29/2024 6:30 AM [facility] ([facility])CO2 2121 - 31 mmol/L108/29/2024 6:30 AM [facility] ([facility])Anion Acw465 - 20 mmol/L108/29/2024 6:30 AM [facility] ([facility])OGM908 - 25 mg/dL 06/29/2025 6:30 AM [facility] ([facility])Creatinine1.63(H)0.70 - 1.30 mg/dL06/29/2025 6:30 AM [facility] ([facility])BUN/Creatinine Ratio14.1 06/29/2025 6:30 AM [facility] ([facility])Pihthhe6589 - 100 mg/dL 06/29/2025 6:30 AM [facility] ([facility])Calcium8.68.6 - 10.3 mg/dL 06/29/2025 6:30 AM [facility] ([facility])AST49(H)13 - 39 U/L108/29/2024 6:30 AM [facility] ([facility])ALT (SGPT)457 - 52 U/L108/29/2024 6:30 AM [facility] ([facility])Alkaline Krnlrutoikb359(H)34 - 104 U/L108/29/2024 6:30 AM [facility] ([facility])Total Protein5.9(L)6.0 - 8.3 g/dL06/29/2025 6:30 AM [facility] ([facility])Albumin3.53.5 - 5.7 g/dL06/29/2025 6:30 AM [facility] ([facility])Total Bilirubin1.1(H)0.3 - 1.0 mg/dL06/29/2025 6:30 AM [facility] ([facility])eGFR44.5(L)>60.0 mL/min/1.73m* 6:30 AM [facility] ([facility])Comment:The [facility]???s estimated glomerular filtration rate (eGFR) will [...] CEE BLOOD ORDERABLESFinal ResultPerforming OrganizationAddressCity/State/ZIP CodePhone Number [facility] ([place]) [address] [place] [address] * Prepare RBC: 2 Units (06/29/2025 1:40 AM EST) Only the most recent of3 resultswithin the time period is included. ComponentValueRef RangeTest MethodAnalysis TimePerformed AtPathologist Signature PRODUCT [id number] BLOOD BANKUnit [id number] BLOOD BANKUnit [facility] BLOOD BANKUnit [facility] BLOOD BANKCrossmatch InterpretationCOMUNIVERSITY OF NEW [facility]EX[facility]ALS BLOOD BANKDispense [facility] BLOOD BANKBlood Expiration [id number] BLOOD BANKProduct Blood Iztp8480DMDL BLOOD BANKUnit Kkkzwl107VRPNNH BLOOD BANK PRODUCT [id number] BLOOD BANKUnit [id number] BLOOD BANKUnit [facility] BLOOD BANKUnit [facility] BLOOD BANKCrossmatch InterpretationCOMUNIVERSITY OF NEW [facility]EX[facility]OS[facility] BLOOD BANKDispense [facility] BLOOD BANKBlood Expiration [id number] BLOOD BANKProduct Blood [id number] BLOOD BANKSpecimen (Source)Anatomical Location / LateralityCollection Method / VolumeCollection TimeReceived TimeOther 06/29/2025 1:40 AM EST Narrative Authorizing ProviderResult TypeResult StatusIdrees Vivek VELAOOD BANK PRODUCT ORDERABLESFinal ResultPerforming OrganizationAddressCity/State/ZIP Code Phone Number [facility] BLOOD BANK * Type and screen (06/29/2025 12:33 AM EST) Only the most recent of2 resultswithin the time period is included. ComponentValueRef RangeTest MethodAnalysis TimePerformed AtPathologist Signature ABO JhandpkuX41/18/2025 2:08 AM [facility] BLOOD BANKRh PwgnOYM3906/29/2025 2:08 AM [facility] BLOOD BANKAb SnxcJZB5506/29/2025 2:08 AM [facility] BLOOD BANKSpecimen (Source)Anatomical Location / LateralityCollection Method / VolumeCollection TimeReceived TimeBloodVenous blood specimen / UnknownVenipuncture / Unknown 06/29/2025 12:33 AM EST06/29/2025 12:58 AM EST Narrative Authorizing ProviderResult TypeResult StatusNasheed Moisés CEE BLOOD BANK TEST ORDERABLESFinal ResultPerforming OrganizationAddressCity/State/ZIP Code Phone Number [facility] BLOOD BANK * CTA Abdomen Pelvis W [...] disease. Celiac artery: ??Patent. Atherosclerotic disease causing vtdw-fg-jtfitmdr ostial stenosis. Superior mesenteric artery: ??Patent. Atherosclerotic [...] disease. Celiac artery: Patent. Atherosclerotic disease causing rlrb-fn-rzeenfsfjvfgxo stenosis. Superior mesenteric artery: Patent. Atherosclerotic disease [...] Location / LateralityCollection Method / VolumeCollection TimeReceived VjrvWwdkh68/17/2025 7:15 PM EST Narrative Authorizing ProviderResult TypeResult StatusNasheed Moisés MDPOINT OF CARE TEST ENTER/EDIT ORDERABLESFinal Result * High Sensitivity Troponin I (06/26/2025 4:40 PM EST) Only the most recent of2 resultswithin the time period is included. ComponentValueRef RangeTest MethodAnalysis TimePerformed AtPathologist Signature High Sensitivity Troponin I8<20 ng/L108/26/2024 5:13 PM [facility] ([place])Specimen (Source)Anatomical Location / LateralityCollection Method / VolumeCollection TimeReceived TimeBloodVenous blood specimen / Unknown Venipuncture / Ciuewlo1006/26/2025 4:40 PM EST06/26/2025 4:43 PM EST Narrative Authorizing ProviderResult TypeResult StatusBrayan CEE BLOOD ORDERABLESFinal ResultPerforming OrganizationAddressCity/State/ZIP CodePhone Number [facility] ([facility]) [address] [place], [place] [id number] * CTA Aorta And Bilateral Iliofemoral Runoff [...] Misha Ferrara. Authorizing ProviderResult TypeResult StatusAndresarah Gutierrez MD[facility] [place] PROCED[facility] Final Result * CT head [...] Misha Ferrara. Authorizing ProviderResult TypeResult StatusAndresarah Gutierrez [facility] [place] [facility] Final Result * XR hand [...] MethodAnalysis TimePerformed AtPathologist Signature aPTT28.725.0 - 35.0 Spvaszf0906/26/2025 3:15 PM [facility] ([facility]) Comment:Clinical significance of the APTT is questionable in the presence of heparin.Specimen (Source)Anatomical Location / LateralityCollection Method / VolumeCollection TimeReceived TimeBloodVenous blood specimen / Unknown Venipuncture / Mfncrym6206/26/2025 2:45 PM EST06/26/2025 2:53 PM EST Narrative Authorizing ProviderResult TypeResult StatusBrayan CEE BLOOD ORDERABLESFinal ResultPerforming OrganizationAddressCity/State/ZIP CodePhone Number [facility] ([facility]) [address] [place], [place] [id number] * (ABNORMAL) Protime-INR (06/26/2025 2:45 PM EST) Only the most recent of3 resultswithin the time period is included. ComponentValueRef RangeTest MethodAnalysis TimePerformed AtPathologist Signature Pkgaoqh10.412.3 - 14.8 Qzshicm6706/26/2025 3:15 PM [facility] ([facility]) INR1.12(H)0.90 - 1.10108/26/2024 3:15 PM [facility] ([facility])Comment: ACCCP RECOMMENDED INR FOR WARFARIN [...] TimeReceived TimeBloodVenous blood specimen / UnknownVenipuncture / Jswxkwz0806/26/2025 2:45 PM EST06/26/2025 2:53 PM EST Narrative Authorizing ProviderResult TypeResult StatusAndsunshine CEE BLOOD ORDERABLESFinal ResultPerforming OrganizationAddressCity/State/ZIP CodePhone Number [facility] ([facility]) [address] [place] [address] * (ABNORMAL) CK total and CKMB (06/26/2025 2:45 PM EST)ComponentValueRef Range Test MethodAnalysis TimePerformed AtPathologist SignatureTotal CK158.030.0 - 223.0 U/L108/26/2024 4:02 PM [facility] ([facility])CK-MB Index2.2(H)0.0 - 1.9108/26/2024 4:02 PM [facility] ([facility])CK-MB3.50.0 - 5.0 ng/mL 06/26/2025 4:02 PM [facility] ([facility])Specimen (Source)Anatomical Location / LateralityCollection Method / VolumeCollection TimeReceived Time BloodVenous blood specimen / UnknownVenipuncture / Ftyqdis2806/26/2025 2:45 PM EST06/26/2025 2:54 PM EST Narrative Authorizing ProviderResult TypeResult StatusBrayan CEE BLOOD ORDERABLESFinal ResultPerforming OrganizationAddressCity/State/ZIP CodePhone Number [facility] ([facility]) [address] [place] [address] * XR chest 1 view (06/26/2025 2:20 [...] Signature Phosphorus3.02.5 - 5.0 mg/dL06/25/2025 4:43 PM [facility] ([facility]) Specimen (Source)Anatomical Location / LateralityCollection Method / Volume Collection TimeReceived TimeBloodVenous blood specimen / UnknownVenipuncture / Gnwivvy4506/25/2025 3:29 PM EST06/25/2025 3:49 PM EST Narrative Authorizing ProviderResult TypeResult StatusBatsheva CEE BLOOD ORDERABLES Final ResultPerforming OrganizationAddressCity/State/ZIP CodePhone Number [facility] ([facility]) [address] [place] [address] * Magnesium (06/25/2025 3:29 PM EST) Only the most recent of8 resultswithin the time period is included. ComponentValueRef RangeTest MethodAnalysis TimePerformed AtPathologist Signature Magnesium1.91.9 - 2.7 mg/dL06/25/2025 4:43 PM [facility] ([facility]) Specimen (Source)Anatomical Location / LateralityCollection Method / Volume Collection TimeReceived TimeBloodVenous blood specimen / UnknownVenipuncture / Yiauofc3206/25/2025 3:29 PM EST06/25/2025 3:49 PM EST Narrative Authorizing ProviderResult TypeResult StatusBatsheva CEE BLOOD ORDERABLES Final ResultPerforming OrganizationAddressCity/State/ZIP CodePhone Number [facility] ([facility]) [address] [place] [address] * (ABNORMAL) Vancomycin Timed (06/17/2025 4:31 AM EST) Only the most recent of2 resultswithin the time period is included. ComponentValueRef RangeTest MethodAnalysis TimePerformed AtPathologist Signature Vancomycin Timed16.7(L)20.0 - 40.011 5:31 AM [facility] ([facility])Specimen (Source)Anatomical Location / LateralityCollection Method / VolumeCollection TimeReceived TimeBloodVenous blood specimen / Unknown Venipuncture / Xghwaka6606/17/2025 4:31 AM EST06/17/2025 4:56 AM EST Narrative Authorizing ProviderResult TypeResult StatusChris CEE BLOOD ORDERABLES Final ResultPerforming OrganizationAddressCity/State/ZIP CodePhone Number [facility]) [place] [address] * Lactic acid with 4 hour reflex (06/15/2025 7:37 PM EST)ComponentValueRef Range Test MethodAnalysis TimePerformed AtPathologist SignatureLactate0.80.5 - 2.2 mmol/L108/15/2024 8:09 PM [facility])Specimen (Source) Anatomical Location / LateralityCollection Method / VolumeCollection Time Received TimeBloodVenous blood specimen / UnknownVenipuncture / Unknown 06/15/2025 7:37 PM EST06/15/2025 7:44 PM EST Narrative Authorizing ProviderResult TypeResult StatusDamaris STEPHENS-CLAB BLOOD ORDERABLESFinal ResultPerforming OrganizationAddressCity/State/ZIP CodePhone Number [facility]) [address] [place] [address] * Blood culture (06/15/2025 7:37 PM EST) Only the most recent of2 resultswithin the time period is included. ComponentValueRef RangeTest MethodAnalysis TimePerformed AtPathologist Signature Blood CultureNo growth at 5 days JOSE 06/20/2025 8:01 PM [facility] ([facility])Specimen (Source)Anatomical Location / LateralityCollection Method / VolumeCollection TimeReceived TimeBlood Venous blood specimen / UnknownVenipuncture / Waoujhh2006/15/2025 7:37 PM EST 06/15/2025 7:44 PM EST Narrative Authorizing ProviderResult TypeResult StatusBelivory Gerard PA-CLAB MICROBIOLOGY - GENERAL ORDERABLESFinal ResultPerforming OrganizationAddressCity/State/ZIP CodePhone Number [facility] ([facility]) [address] [place] [address] * (ABNORMAL) Wound culture (06/15/2025 5:59 PM EST)ComponentValueRef RangeTest MethodAnalysis TimePerformed AtPathologist SignatureWound CultureLight Growth Enterobacter cloacae complex(A) JOSE 06/17/2025 10:36 AM [facility] ([facility])Comment:Gram Stain ResultNo polymorphonuclear leukocytes seen06/17/2025 10:36 AM [facility] ([facility])Gram Stain ResultModerate Gram negative itsxdwy2106/17/2025 10:36 AM EST [facility] ([facility])Specimen (Source)Anatomical Location / Laterality Collection Method / VolumeCollection TimeReceived TimeSwab (Leg)06/15/2025 5:59 PM EST06/15/2025 7:44 PM EST Narrative [facility] ([facility]) - 06/17/2025 10:36 AM EST [...] - GENERAL ORDERABLESFinal ResultPerforming OrganizationAddressCity/State/ZIP CodePhone Number [facility] ([facility]) [address] [place] [address] * [facility] Lower Extremity Arterial Duplex Bypass Graft Right [...] RangeTest MethodAnalysis TimePerformed AtPathologist SignatureActivated Clotting Time KRB158(H)82 - 152 sec06/10/2025 12:10 AM [facility] ([place])Specimen (Source)Anatomical Location / LateralityCollection Method / VolumeCollection TimeReceived TimeBloodVenous blood specimen / Unknown 06/07/2025 5:44 PM EDT1 12:10 AM EDT Narrative Authorizing ProviderResult TypeResult Barron Andre MDLAB POINT OF CARE TEST DOCKED DEVICE UNSOLICITED RESULTSFinal ResultPerforming OrganizationAddress City/State/ZIP CodePhone Number [facility] ([place]) [address] [place] [address] * Histology - tissue exam (06/07/2025 5:44 PM EDT)ComponentValueRef RangeTest MethodAnalysis TimePerformed AtPathologist SignatureCase ReportSurgical Pathology ?Case: [id number] ? Authorizing Provider: ??Chris Andre MD ?Collected: ? 06/07/2025 1744 ? Ordering Location: ? [facility] Main Operating Room ?? Received: ?06/08/2025 0806 ? Pathologist: ? Pop Salinas MD ? Specimen: ?Groin, Right ??Common femoral artery , Profunda Artery Plaque and others ? 06/11/2025 8:24 AM [facility] ([place])Final DiagnosisA. Right common femoral artery and profunda artery plaque, endarterectomy: - Calcified atherosclerotic plaque with osteoid metaplasia.06/11/2025 8:24 AM [facility] ([place]) at 0824 EDTClinical InformationPost-Op Diagnoses M79.604, M79.605 - Lower extremity pain, bilateral [ICD-10-CM] I73.9 - Severe claudication [ICD-10-CM] Z01.818 - Encounter for pre-operative examination [ICD-10-CM] 06/11/2025 8:24 AM [facility] ([facility])Gross DescriptionA. Groin. Received in formalin labeled You Garcia, Groin, Tissue, Right Common femoral artery, Profunda Artery Plaque and others, 5 wells-white, soft to partially calcified fragments of soft tissue measuring 3.7 x 2.4 x 1.3 cm in aggregate. One of the fragments is tubular, measuring 2.2 cm in length and up to 0.9 cm in diameter with 40-50% luminal narrowing. Vehicle Controls Engineer sections have been submitted in one cassette following decalcification. The remainder of the specimen is contained within its formalin container. Rom Iglesias, PGY-210 8:24 AM [facility] ([facility])Microscopic DescriptionMicroscopic examination performed.06/11/2025 8:24 AM [facility] ([facility])Specimen (Source)Anatomical Location / LateralityCollection Method / VolumeCollection TimeReceived TimeTissue (Groin)06/07/2025 5:44 PM EDT 06/08/2025 8:06 AM EDTComment:Pre-op diagnosis: Lower extremity pain, bilateral [M79.604, M79.605] Severe claudication [I73.9] Encounter for pre-operative examination [Z01.818] Narrative Authorizing ProviderResult TypeResult StatusMunier Jes CEE PATHOLOGY ORDERABLESFinal ResultPerforming OrganizationAddressCity/State/ZIP CodePhone Number [facility] ([facility]) [address] [place] [address] * (ABNORMAL) Arterial Blood Gas Complete (06/07/2025 5:43 PM EDT)ComponentValue Ref RangeTest MethodAnalysis TimePerformed AtPathologist SignaturepH, Arterial 7.417.35 - 7.451 5:43 PM EDTUT RESPIRATORY THERAPYpCO2, Okgwlcto66 35 - 45 mmHg06/07/2025 5:43 PM EDTUT RESPIRATORY THERAPYpO2, Izacgjds54(L)83 - 108 mmHg06/07/2025 5:43 PM EDTUT RESPIRATORY THERAPYHCO3, Skfyptnx30.5 21.0 - 28.0 mmol/L10 5:43 PM [facility] RESPIRATORY THERAPYO2 Sat, Ovknuumc95.594.0 - 100.0 %06/07/2025 5:43 PM [facility] RESPIRATORY THERAPYBase Excess, Arterial-0.9-2.0 - 3.0 mmol/L1 5:43 PM [facility] RESPIRATORY THERAPYCalcium Ionized, Arterial1.49(H)1.13 - 1.32 mmol/L1 5:43 PM [facility] RESPIRATORY THERAPYSodium, Fnkkpssr004976 - 146 mmol/L1 5:43 PM [facility] RESPIRATORY THERAPYPotassium, Arterial4.43.4 - 5.2 mmol/L1 5:43 PM [facility] RESPIRATORY THERAPYChloride, Mxkcenly064(H)98 - 107 mmol/L 06/07/2025 5:43 PM [facility] RESPIRATORY THERAPYGlucose, Kakhuvjz432(H)65 - 95 mg/dL06/07/2025 5:43 PM [facility] RESPIRATORY THERAPYLactate, Arterial1.100.36 - 1.39 mmol/L1 5:43 PM [facility] RESPIRATORY THERAPYHematocrit, Arterial 31(L)37 - 50 %06/07/2025 5:43 PM [facility] RESPIRATORY THERAPYHemoglobin, Pptjaeum10.4g/dL06/07/2025 5:43 PM [facility] RESPIRATORY THERAPYOxyhemoglobin, Maynvnko22.694.0 - 97.0 %06/07/2025 5:43 PM [facility] RESPIRATORY THERAPY Methemoglobin, Arterial0.80.0 - 1.5 %06/07/2025 5:43 PM [facility] RESPIRATORY THERAPYCarboxyhemoglobin, Arterial2.1%06/07/2025 5:43 PM [facility] RESPIRATORY THERAPYDeoxyhemoglobin, Arterial2.4%06/07/2025 5:43 PM [facility] RESPIRATORY IGPVHZLWcmcedfjlpa50.0??06/07/2025 5:43 PM [facility] RESPIRATORY THERAPYPF Ratio06/07/2025 5:43 PM [facility] RESPIRATORY THERAPYComment:C^Incalculable A-dOk79706/07/2025 5:43 PM [facility] RESPIRATORY THERAPYComment:C^Incalculable paO2/yUT46506/07/2025 5:43 PM [facility] RESPIRATORY THERAPYComment:C^Incalculable Specimen (Source)Anatomical Location / LateralityCollection Method / Volume Collection TimeReceived TimeBloodArterial blood specimen / Uvvehau4306/07/2025 5:43 PM EDT1 5:43 PM EDT Narrative Authorizing ProviderResult TypeResult StatusChris CEE BLOOD ORDERABLES Final ResultPerforming OrganizationAddressCity/State/ZIP CodePhone Number [facility] RESPIRATORY THERAPY [address] [place] [address], * [place] AN ELECTIVE ENDOTRACHEAL AIRWAY (06/07/2025 3:09 PM EDT) Narrative Judith Malloy MD - 06/07/2025 3:09 PM EDT Judith Malloy MD 06/07/2025 3:49 PM Airway Date/Time: 06/07/2025 3:09 PM Reason: elective Airway not difficult General Information and Staff Patient location during procedure: [place] Anesthesiologist: Judith Malloy MD Resident/LIFE SCIENCES INSTRUCTOR/CAA: Young Carcamo MD Performed: resident/LIFE SCIENCES INSTRUCTOR/MATHIEU Patient Condition Indications for airway management: anesthesia [...] Skin prep, Sterile drape, VSS. Staffing Performed: resident/LIFE SCIENCES INSTRUCTOR/CAA Anesthesiologist: Judith Malloy MD Resident/LIFE SCIENCES INSTRUCTOR: Young Carcamo MD Performed by: Young Carcamo MD Authorized by: Judith Malloy MD ?? Authorizing ProviderResult TypeResult StatusRavindersarah Malloy MDANESTHESIA ORDERABLESEdited Result - Final * (ABNORMAL) Urinalysis with microscopic (05/26/2025 2:54 PM EDT)ComponentValue Ref RangeTest MethodAnalysis TimePerformed AtPathologist SignatureColor, Urine Light-YellowColorless, Yellow, Light-Wfqofl9505/26/2025 4:25 PM [facility] ([facility])Clarity, FzuffKqvgaQrsyi83/15/2025 4:25 PM [facility] ([facility])Specific Stuart, Urine1.004(L)1.010 - 1.2916105/26/2025 4:25 PM [facility] ([facility])pH, Urine5.55.0 - 8.0 pH05/26/2025 4:25 PM [facility] ([facility])Leukocytes, ZoghcTabbuwteIpjgrbxf83/15/2025 4:25 PM EDT [facility] ([facility])Nitrite, FpmtcUlyawftxBxiglrmr35/15/2025 4:25 PM EDT [facility] ([facility])Protein, UrineNegativeNegative mg/dL05/26/2025 4:25 PM [facility] ([facility])Glucose, UrineNormalNormal mg/dL05/26/2025 4:25 PM [facility] ([facility])Bilirubin, UrineNegativeNegative 05/26/2025 4:25 PM [facility] ([facility])Ketones, UrineNegativeNegative mg/dL05/26/2025 4:25 PM [facility] ([facility])Urobilinogen, Urine NormalNormal mg/dL05/26/2025 4:25 PM [facility] ([facility])Blood, Urine DcgnkkulKhapfisj61/15/2025 4:25 PM [facility] ([facility])RBC, UrineNone SeenNone Seen, 0-2 /HPF05/26/2025 4:25 PM [facility] ([facility])WBC, UrineNone SeenNone Seen, 0-2 /HPF05/26/2025 4:25 PM [facility] ([facility])Squamous Epithelial, UrineOccasionalNone Seen, Occasional, Few /LPF 05/26/2025 4:25 PM [facility] ([facility])Specimen (Source)Anatomical Location / LateralityCollection Method / VolumeCollection TimeReceived Time UrineUrine specimen obtained by clean catch procedure / UnknownNon-blood Collection / Glswdcc7105/26/2025 2:54 PM EDT1 3:48 PM EDT Narrative Authorizing ProviderResult TypeResult StatusZujaimie CEE URINE ORDERABLES Final ResultPerforming OrganizationAddressCity/State/ZIP CodePhone Number [facility] ([facility]) [address] [place] [address] * (ABNORMAL) Microalbumin, urine, random (05/26/2025 2:54 PM EDT)ComponentValue Ref RangeTest MethodAnalysis TimePerformed AtPathologist SignatureMicroalb, Ur <1mg/dL05/26/2025 4:34 PM [facility] ([facility])Microalb/Creat Ratio 05/26/2025 4:34 PM [facility] ([facility])Comment:Unable to calculate Creatinine, Ur24.0(L)26 - 299 mg/dL05/26/2025 4:34 PM [facility] ([facility])Specimen (Source)Anatomical Location / LateralityCollection Method / VolumeCollection TimeReceived TimeUrineUrine specimen obtained by clean catch procedure / UnknownNon-blood Collection / Itznaej1605/26/2025 2:54 PM EDT 05/26/2025 3:48 PM EDT Narrative Authorizing ProviderResult TypeResult StatusBatsheva CEE URINE ORDERABLES Final ResultPerforming OrganizationAddressCity/State/ZIP CodePhone Number [facility] ([facility]) [address] [place] [address] * (ABNORMAL) Creatinine, urine, random (05/26/2025 2:54 PM EDT)ComponentValueRef RangeTest MethodAnalysis TimePerformed AtPathologist SignatureCreatinine, Ur 24.0(L)26 - 299 mg/dL05/26/2025 4:34 PM [facility] ([facility])Specimen (Source)Anatomical Location / LateralityCollection Method / VolumeCollection TimeReceived TimeUrineUrine specimen obtained by clean catch procedure / UnknownNon-blood Collection / Oujrxdo6905/26/2025 2:54 PM EDT1 3:48 PM EDT Narrative Authorizing ProviderResult TypeResult StatusBatsheva CEE URINE ORDERABLES Final ResultPerforming OrganizationAddressCity/State/ZIP CodePhone Number [facility] ([facility]) [address] [place] [address] * Vitamin D 25 hydroxy (05/26/2025 2:54 PM EDT)ComponentValueRef RangeTest MethodAnalysis TimePerformed AtPathologist SignatureVit D, 25-Clfuzhu15.030.0 - 80.0 ng/mL05/26/2025 4:48 PM [facility] ([facility])Comment:>80.0 Toxicity possibleSpecimen (Source)Anatomical Location / LateralityCollection Method / VolumeCollection TimeReceived TimeBloodVenous blood specimen / UnknownVenipuncture / Jauwwhx5905/26/2025 2:54 PM EDT1 3:52 PM EDT Narrative Authorizing ProviderResult TypeResult StatusBatsheva CEE BLOOD ORDERABLES Final ResultPerforming OrganizationAddressCity/State/ZIP CodePhone Number [facility] ([facility]) [address] [place] [address] * PTH, intact (05/26/2025 2:54 PM EDT)ComponentValueRef RangeTest MethodAnalysis TimePerformed AtPathologist XggkwtvzxGCA1512 - 88 pg/mL05/26/2025 7:13 PM EDT [facility] ([facility])Specimen (Source)Anatomical Location / Laterality Collection Method / VolumeCollection TimeReceived TimeBloodVenous blood specimen / UnknownVenipuncture / Xqhuhyn5505/26/2025 2:54 PM EDT1 3:52 PM EDT Narrative Authorizing ProviderResult TypeResult StatusZujaimie CEE BLOOD ORDERABLES Final ResultPerforming OrganizationAddressCity/State/ZIP CodePhone Number [facility]) [address] [place] [address] * MRSA/MSSA DNA Nasal (05/24/2025 2:48 PM EDT)ComponentValueRef RangeTest Method Analysis TimePerformed AtPathologist SignatureMSSA DNANegativeNegative 05/25/2025 1:50 PM [facility])MRSA DNANegativeNegative 05/25/2025 1:50 PM [facility] ([facility])Specimen (Source)Anatomical Location / LateralityCollection Method / VolumeCollection TimeReceived Time SwabNasal structure / UnknownNon-blood Collection / Zztjbdm6205/24/2025 2:48 PM EDT1 3:24 PM EDT Narrative [facility] ([facility]) - 05/25/2025 1:50 PM EDT [...] GENERAL ORDERABLESFinal ResultPerforming OrganizationAddressCity/State/ZIP Code Phone Number [facility] ([facility]) [address] [facility] [place] [address] * CORONARY ANGIOGRAPHY, CORONARY BYPASS GRAFT STUDY (05/11/2025 12:47 PM EDT) Anatomical RegionLateralityModalityOtherSpecimen (Source)Anatomical Location / LateralityCollection Method / VolumeCollection TimeReceived Time Narrative 05/11/2025 1:11 PM EDT Cardiovascular Laboratory Report FINAL IMPRESSIONS: ?? Severe, three-vessel [place] coronary artery disease There are 2 out [...] micropuncture kit was upsized to a 6 Faroese 11 cm sheath. Bilateral selective coronary angiography [...] have been documented. Authorizing ProviderResult TypeResult StatusEhab EltaAdventHealth [facility] CARDIAC CATH PROCEDURESFinal Result * Electrocardiogram, 12-lead (05/11/2025 8:08 AM EDT)ComponentValueRef RangeTest MethodAnalysis TimePerformed AtPathologist SignatureVentricular Bccg29PGPXP MUSEAtrial Sckz44ZUCMY MUSEPR Dsfnzjkm141ehJJ MUSEQRS JXGAYMEL938wqYI MUSEQT Fbjjuyod930pfOL MUSEQTC CALCULATION(BAZETT)466msGE MUSEP Illn17wtusblwPS MUSE Z-Gqyb-33geqzyinAP MUSET Wave Wkjg04yblgxesMB MUSESpecimen (Source)Anatomical Location / LateralityCollection Method / [...] RegionLateralityModalityUltrasound Narrative Authorizing ProviderResult TypeResult StatusHistorical Provider [facility] ECHO PROCEDURESFinal Result * Lex[facility] Stress Myocardial Perfusion Imaging (04/20/2025 3:22 PM EDT) Anatomical RegionLateralityModalityOther Narrative Authorizing ProviderResult TypeResult StatusHistorical Provider [facility] STRESS PROCEDURESFinal Result * CT transfer of [...] (Latest Code Status on File) Date ActivatedDate VjsrpdetrooCgtnubup31/18/2025 4:23 AM07/01/2025 8:53 PM * Full Code Date ActivatedDate FglxasxrdhzRtsohopy49/4/2025 9:45 PM06/19/2025 9:53 PM * Full Code Date ActivatedDate LpskcwvvontVdlgacml82/27/2025 5:10 PM10 9:30 PM * Full Code Date ActivatedDate InactivatedComments05/11/2025 12:48 PM05/11/2025 8:03 PM Care Teams Team MemberRelationshipSpecialtyStart DateEnd Date Susan Watson MD [facility] [place] [address] PCP - GeneralNurse Practitioner10/13/24
--- OUTSIDE RECORDS SUMMARY | 2025-07-12 22:43 | XMS_ITS | Encounter Summary ---
Author Organization [facility] Address [address] [place] [address] Care Team Providers Care Technician Support Engineer Name Role Phone Susan Watson MD Primary Care Provider [phone] Encounter Details DateTypeDepartmentCare Team (Latest Contact Info)Sqnjboskrdx23/17/2025Orders Only [facility] Infectious Disease [address], [address] [place] [address] Carolyn Romo MA Social History Tobacco UseTypesPacks/DayYears UsedDateSmoking Tobacco: FormerCigarettes Smokeless Tobacco: CurrentChewAlcohol UseStandard Drinks/WeekCommentsNot Currently0 (1 standard drink = 0.6 oz pure alcohol)PHQ-2AnswerDate Recorded Patient Health Questionnaire-2 Qesoe30108/14/2024Humiliation, Afraid, Rape, and Kick questionnaireAnswerDate RecordedWithin the [...] times a week06/15/2025How often do you attend rastafarian or christianity services?Never06/15/2025Do you belong to any clubs or organizations such as rastafarian groups, unions, fraternal or athletic groups, or school groups?No06/15/2025How often do you attend meetings of the clubs or organizations you belong to?Never06/15/2025re you , , , , never , or living with a partner?Skufcgonz58/04/2025UDIT-C AnswerDate RecordedQ1: How often do you have [...] medical care, and heating?Not hard at all06/29/2025 [facility] [facility] - Occupational Stress Questionnaire AnswerDate RecordedDo you feel stress - tense, restless, nervous, or anxious, or unable to sleep at night because yourmind is troubled all the time - these days? Only a cbynbu3706/15/2025HC UtilitiesAnswerDate RecordedIn the past 12 months has the [employer], gas, oil, or water [employer] threatened to shut off services in your [...] were you homeless or living in a detention (including now)?No06/29/2025Hunger Vital SignAnswerDate Recorded Within the past 12 months, you worried that your food would run out before you got the money to buymore.Never true06/29/2025Within the past 12 months, the food you bought just didn't last and you didn't have money to get more.Never true 06/29/2025Sex and Gender InformationValueDate RecordedSex Assigned at BirthMale 04/08/2025 7:15 AM EDTLegal GflEeyy9502/07/2022 10:15 PM EDTGender IdentityMale 04/08/2025 7:15 AM EDTSexual OrientationHeterosexual or Snhsqbsb46/28/2025 7:15 AM EDTdocumented as of this encounter Functional Status * Suicidal IdeationQuestionAnswerDate of AssessmentAuthor1. Wish to be (Lifetime)No06/29/2025 11:38 AM Brianne Dacosta RN2. Non-Specific Active Suicidal Thoughts (Lifetime)No06/29/2025 11:38 AM Brianne Dacosta RN documented as of this encounter Plan of Treatment DateTypeDepartmentCare Team (Latest Contact Info)Vnmtegnsrzo91/08/2025 1:45 PM ESTFollow-[facility] [address] [place] [phone] Nadia Sheppard PA-C [address] [facility] [place] [address] 07/22/2025 9:30 AM ESTFollow-[facility] Heart at [facility] [address] [place] [address] Sarah Tolliver MD [address] [facility] [place] [address] 07/29/2025 2:30 PM ESTFollow-Up [facility] [address] [place] [address] [place] [phone] Ebony Estevez, NEEDLE LEADER [address] [place] [address] 08/23/2025 7:30 AM ESTHospital Encounter [facility] Main Operating Room [address] [place] [phone] Chris Andre MD [address] [place] [phone] 08/23/2025 7:30 AM EST - 08/23/2025 11:00 AM ESTSurgery [facility] Main Operating Room [address] [place] [phone] Chris Andre MD [address] [place] [phone] ENDARTERECTOMY, FEMORAL WITH POSSIBLE FEM TO POP AGRLAN3409/21/2025 11:00 AM EST Follow-Up [facility] Nephrology [address] [place] [address] Batsheva Beckwith MD [address] [facility] [address] [facility] [place] [address] NamePriorityAssociated DiagnosesDate/TimeENDARTERECTOMY, FEMORAL Peripheral arterial occlusive disease Encounter for pre-operative examination 08/23/2025 7:30 AM ESTdocumented as of this encounter Goals GoalPatient Goal TypeAssociated ProblemsRecent ProgressPatient-Stated?Author Blood Pressure < 140/90 Blood Hnrblaif289/78(07/06/2025 12:48 PM EST)Cy Child, JOHANAdocumented as of this encounter Visit Diagnoses Not on filedocumented in this encounter Care Teams Team MemberRelationshipSpecialtyStart DateEnd Date Susan Watson MD [address] [place] [address] PCP - GeneralNurse Practitioner10/13/24documented as of this encounter
[2025-07-12 22:49] LABS: Hematocrit 28.4 % (42.0-54.0); Hemoglobin 9.1 g/dL (14.0-18.0); Immature Granulocytes Abs Auto 0.09 10^3/uL (0.00-0.03); Immature Granulocytes Pct Auto 1.0 % (0.0-0.5); Lymphocytes Absolute Auto 0.9 10^3/uL (1.2-3.8); Mean Corpuscular HGB Conc 32.0 g/dL (29.9-35.2); Mean Corpuscular Hemoglobin 29.8 pg (25.9-34.0); Mean Corpuscular Volume 93.1 fL (80.0-94.0); Platelet Count 156 10^3/uL (150-450); Red Blood Count 3.05 10^6/uL (4.70-6.10); White Blood Count 9.1 10^3/uL (4.0-11.0)
[2025-07-12 23:06] LABS: Alanine Aminotransferase 95 U/L (16-63); Albumin Globulin Ratio 0.8; Albumin Level 2.9 g/dL (3.4-5.0); Alkaline Phosphatase 196 U/L (46-116); Anion Gap 11.3; Aspartate Amino Transferase 73 U/L (15-37); Blood Urea Nitrogen 20.0 mg/dL (7.0-18.0); Calcium 9.0 mg/dL (8.5-10.1); Carbon Dioxide 27.9 mmol/L (21.0-32.0); Chloride 107 mmol/L (98-107); Estimated GFR (African America 53 (>=60 mL/min/1.73m^2); Estimated GFR (Non-African Ame 43 (>=60 mL/min/1.73m^2); Globulin 3.6 g/dL; Glucose 96 mg/dL (74-106); Potassium 4.2 mmol/L (3.5-5.1); Sodium 142 mmol/L (136-145); Total Protein 6.5 g/dL (6.4-8.2)
[2025-07-12 23:17] LABS: Lactate/Lactic Acid 0.9 mmol/L (0.4-2.0)
[2025-07-12] MEDS: AZITHROMYCIN 500 MG in 0.9 % SODIUM CHLORIDE 250 ML 250 MG IV (23:39)
[2025-07-13] VITALS (31 sets, daily range): BP systolic 108–136; BP diastolic 61–78; PULSE 61–92; TEMP 36.4–36.8; O2SAT 88–95; BMI 25.6
[2025-07-13] MEDS: FUROSEMIDE 40 MG/4 ML VIAL IVP (00:14)
--- NOTE | 2025-07-13 00:16 | PC.NURSE ---
Pt was incontinent of urine x 2 completely saturating the his clothes and the bed both times. His R hand IV was also accidentally D/C'ed. Pressure dressing applied. He is not confused
--- OUTSIDE RECORDS SUMMARY | 2025-07-13 00:56 | XMS_ITS | CCD ---
Author Organization [facility] Care Team Providers Care [employer] Thread Winder Name Role Phone AMBURN, JOMAR Unavailable Unavailable AMBURN, JOMAR Unavailable Unavailable AMBURN, JOMAR Unavailable Unavailable AMBURN, JOMAR Unavailable Unavailable AMBURN, JOMAR Unavailable Unavailable AMBURN, JOMAR Unavailable Unavailable Genesis, Thomas Unavailable Reuben Triana Unavailable Susannah Nevarez Unavailable Cristo Suazo Unavailable Cristo Suazo Unavailable Genesis, Thomas Unavailable Corona Monroe Unavailable Genesis, Thomas Unavailable MD Corona Monroe Attending Provider [phone] DO Daria Cardoza Primary Care Provider Genesis, [...] Unavailable EUN KAUFMAN Referring Unavailable Cornelio LEMON [facility] Unavailable Jose Beckford MD Primary Care Provider Ivonne HEAD SILVERMAN, Jayy Unavailable Vannessa Russell MA Unavailable Unavailable Cornelio LEMON, [facility] Primary Care Provider Ivonne HEAD SILVERMAN, Jayy Unavailable Shirley LEGAL ENTITY CONTROLLER-MÓNICA, Noa Hurley Primary Care Provider NOA WATSON Attending Unavailable NOA WATSON Attending Unavailable SHAIKH GRIMES Attending Unavailable JAYY CORONADO Attending Unavailabl e NOA WATSON Attending Unavailable NOA WATSON Attending Unavailable JAYY CORONADO Attending Unavailabl e Aichholz LEGAL ENTITY CONTROLLER-TECHNOLOGY SPECIALIST, Noa J Primary Care Provider Noa Watson CNP Primary Care Provider BILL GANT Referring Unavailable NOA WATSON Primary Care Unavailable BILL GANT Attending Unavailable SELF Referring Unavailable NOA WATSON Primary Care Unavailable JAYY CORONADO Referring Unavaila ble [facility]ELIO [facility] Primary Care Unavailable SARAH TOLLIVER Referring Unavailable CORNELIO [facility] Primary Care Unavailable NOA WATSON J [...] Care Unavailable Cornelio LEMON, Primary Care Provider Cornelio LEMON, Unavailable Jose Beckford MD Primary Care Provider Ivonne YAÑEZ, Jayy Unavailable [phone] Vannessa Russell MA [facility] Referring Unavailable WILL KEYS Referring Unavailable [...] Translations: [PENICILLINS]Propensity to adverse reactions to drug (disorder)[phone])NO ACTIVE ALLERGIES; Translations: [NO ACTIVE ALLERGIES]Propensity to adverse reactions (disorder)[facility] Repository Medications Current Medications MedicationDrug Class(es)DatesSig (Normalized)Sig (Original)[id number] 200 actuat albuterol 0.09 mg/actuat metered dose inhaler (20 sources)beta2-Adrenergic AgonistStart: 53-14-1766votl 2 puff(s) by inhalation every four hours as needed for wheezingalbuterol (PROVENTIL HFA;VENTOLIN HFA) 90 mcg/actuation inhaler Indications: Acute bronchitis, unspe cified organism Inhale 2 puffs every 4 (four) hours as needed for wheezing. 18 g 02/26/2024 ActiveStart: 12-02-2021 End: 54-37-6374uaaw 1 puff(s) by mouth every four hours as neededalbuterol HFA (PROVENTIL HFA, VENTOLIN HFA) 90 mcg/actuation inhaler INHALE 1 PUFF BY MOUTH EVERY 4HOURS NEEDED 12/02/2021 ActiveStart: 59-44-5223Ucjdvkbrj Sulfate 90 mcg/actuation HFA aerosol inhaler Active 90 MCG INHALATION Q4H as needed for Sh ortness Of Breath September 13, 2020 1:00amStart: 89-76-5110fptp 1 puff(s) by inhalation every four hours as neededVentolin HFA 108 (90 Base) MCG/ACT 1 puff as needed Inhalation every 4 hrs for 30 day(s) PRN Jul, Not-TakingStart: 62-02-2353tetj 2 puff(s) by inhalation every four hours [...] (20 sources)Dihydropyridine Calcium Channel BlockerStart: 03-11-2024 End: 12-17-9935wsia 1 tablet by mouth onceamLODIPine (Norvasc) 5 MG tablet Indications: Primary hypertension Take 1 tablet (5 mg) by mouth every 12 (twelve) hours 180 tablet 1 03/01/2025 05/30/2025 ActiveStart: 61-11-2189efmj 1 tablet by mouth twice dailyAmlodipine 5 mg tablet Active 5 MG PO Twice daily October 15, 2023 4:56pmStart: 10-22-2019 End: 56-10-6684apru 1 tablet by mouth once dailyAmlodipine 5 [...] Inhibitor, Nonsteroidal Anti-inflammatory Drug Start: 10-22-2019 End: 64-33-7533dwds 1 tablet by mouth in the morningaspirin 81 MG EC tablet Indications: 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 12/24/2024 ActiveStart: 11-19-2024 End: 19-20-9545gzfvmqia (Lioresal) 10 MG tablet Indications: Neck pain Take 1 tablet (10 mg) by mouth as needed atbedtime for muscle spasms for up to 15 days 15 tablet 12/24/2024 Oyadiu25 hr buPROPion hydrochloride 300 mg extended release oral tablet (20 sources)AminoketoneStart: 03-11-2024 End: 70-58-9249cqsi 1 tablet by mouth every twenty-four hours in the morning buPROPion XL (Wellbutrin XL) 300 MG 24 hr tablet Indications: Recurrent major depression in partialremission Take 1 tablet (300 mg) by mouth in the morning. Do not crush, chew, or split. 90 tablet 05/30/2025 ActiveStart: 70-50-8498djau 1 tablet by mouth once daily in the morningStart: 09-19-2023 End: 53-54-2729bzmf 1 tablet by mouth every twenty-four hours in the morning buPROPion XL (Wellbutrin XL) 300 MG 24 hr tablet Indications: Recurrent major depression in partialremission (HCC) (CMS/HCC) Take 1 tablet (300 mg) by mouth in the morning. Do not crush, chew, or split.. 90 tablet 0 09/19/2023 12/18/2023 ActiveStart: 12-04-2021 End: 68-51-8644bhjp 1 tablet by mouth once daily in the morningbuPROPion XL (WELLBUTRIN XL) 150 mg 24 hr tablet TAKE 1 TABLET BY MOUTH EVERY DAY IN THE MORNING 0 12/04/2021 04/10/2022 DiscontinuedStart: 10-22-2019 End: 75-56-6968yszh 1 tablet by mouth once dailyBupropion Hcl 100 mg Tablet Sustained-Release 12 Hr Discontinued 100 MG PO Daily October 22, 2019 12:00am October 15, 2023 4:57pmStart: 10-22-2019 End: 24-19-3798ozwq 1 tablet by mouth once dailyBupropion Hcl [...] mg oral tablet (20 sources)Start: 10-22-2019 End: 35-63-0488crrk 1 tablet by mouth in the morningbusPIRone [...] tablet (20 sources)P2Y12 Platelet InhibitorStart: 10-22-2019 End: 12-49-9698zqsz 1 tablet by mouth once dailyclopidogrel (Plavix) 75 MG tablet Indications: 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 30 tablet 11 04/02/2025 Active famotidine 20 mg oral tablet (20 sources)Histamine-2 Receptor AntagonistStart: 10-22-2019 End: 99-19-4607fvlh 1 tablet by mouth in the morningfamotidine [...] sources)Peroxisome Proliferator Receptor alpha AgonistStart: 10-22-2019 End: 55-51-5547zzpn 1 capsule by mouth twice dailyFenofibrate Micronized 43 mg capsule Take 43 mg by mouth twice daily. 12/15/2021 Activetake 1 capsule by mouth once daily before breakfastfenofibrate micronized (ANTARA) 43 mg capsule Take 1 capsule (43 mg total) by mouth every morning before breakfast. Active Comment on above:Take 43 mg by mouth twice daily.ferrous sulfate 325 mg oral tablet (8 sources)Start: 01-19-2025 End: 44-56-9563qthm 1 tablet by mouth at mealtimeferrous sulfate (FeroSul) 325 (65 Fe) MG tablet Indications: Chronic kidney disease, stage 4 (severe) ([facility]) Take 1 tablet (325 mg) by mouth in the morning. Take with meals. 90 tablet 1 03/01/2025 05/30/2025 ActiveFish Oils (20 sources)take 1 capsule by mouth once dailytake 1 capsule by mouth once daily Fish Oil 1000 MG 1 capsule Orally Once a day [id number] actuat fluticasone propionate 0.115 mg/actuat / salmeterol 0.021 mg/actuat metered dose inhaler (9 sources)Corticosteroid, beta2-Adrenergic Agonisttake 2 puff(s) by inhalation twice daily30 actuat fluticasone furoate 0.1 mg/actuat / umeclidinium 0.0625 mg/actuat / vilanterol 0.025 mg/actuat dry powder inhaler (20 sources)Anticholinergic, Corticosteroid, beta2-Adrenergic AgonistStart: 02-18-2024 End: 23-67-6820qbjd 1 puff(s) by mouth once daily, then take 1 puff(s) by mouth once vzezqMnsbqgqixhb-Vyenaoobr-Xqqekm (Trelegy Ellipta) 100-62.5-25 MCG/ACT aerosol powder Indications: Chronic obstructive pulmonary disease, unspecified COPD type (HCC) Inhale 1 puff Daily Rinse mouth afteruse. Inhale 1 puff Daily 180 each 1 03/01/2025 05/30/2025 ActiveStart: 02-18-2024 End: 51-28-7798swbw 1 puff(s) by inhalation in the morning osfwlatpdtr-tuqhzmapl-wvvtcuxh (TRELEGY ELLIPTA) 100-62.5-25 mcg blister with device Inhale 1 puff in the morning. 02/18/2024 03/24/2025 ActiveStart: 17-35-8277Fzqvhswehbt-Umeclidin-Vilanter (Trelegy Ellipta) 100-62.5-25 mcg blister with device Active 1 INH INHALATION Daily October 15, 2023 1:00amStart: 09-19-2023 End: 50-95-3768pqwg 1 puff(s) by inhalation in the morning Erljccxsvbh-Quzggrmqk-Vxlibu (Trelegy Ellipta) 100-62.5-25 MCG/ACT aerosol powder Indications: Chronic obstructive pulmonary disease, unspecified COPD type (CMS/HCC) Inhale 1 puff in the morning. 90 each 0 09/19/2023 12/18/2023 Active Start: 21-33-7253gacs 1 puff(s) by inhalation once dailyTrelegy Ellipta 100-62.5-25 MCG/INH 1 puff Inhalation Once a day for 30 days Feb, Active End: 88-44-3278Zhktxfsfuhh-Umeclidin-Vilant (Trelegy Ellipta) 100-62.5-25 MCG/ACT aerosol powder Inhale 0 09/19/2023 Discontinued (Reorder)furosemide 20 mg oral tablet (2 sources)Loop DiureticStart: 17-22-7221xicu 1 tablet by mouth once daily in the morningfurosemide (LASIX) 20 mg tablet Take 1 tablet by mouth every morning. 30 tablet 11 04/02/2025 Xitjrt48 hr isosorbide mononitrate 60 mg extended release oral tablet (20 sources)Nitrate VasodilatorStart: 09-19-2023 End: 60-41-2909ngqo 1 tablet by mouth every twenty-four hours in the morning isosorbide mononitrate ER (Imdur) 60 MG 24 hr tablet Indications: Coronary artery disease involvingnative coronary artery 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 angina pectoris (CMS/HCC) , Primary hypertension (CMS/HCC) Take 1 tablet (60 mg) by mouth in the morning. Do not crush or chew.. 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 90 tablet 1 03/01/2025 05/30/2025 ActiveComment on above:isosorbide mononitrate ER 60 mg tablet,extended release 24 hr TAKE 1 TABLET BY MOUTH EVERY MORNINGlisinopril 10 mg oral tablet (20 sources)Angiotensin Converting Enzyme InhibitorStart: 12-24-2024 End: 41-63-6568ndij 1 tablet by mouth once dailylisinopril 10 MG tablet Indications: Primary hypertension Take 1 tablet (10 mg) by mouth Daily 90 tablet 1 03/01/2025 05/30/2025 ActiveComment on above:lisinopril 10 mg tabletmetoprolol tartrate 50 mg oral tablet (20 sources)beta-Adrenergic BlockerStart: 03-11-2024 End: 26-82-1308aqse 1 tablet by mouth in the morningmetoprolol tartrate (Lopressor) 50 MG tablet Indications: Primary hypertension , Coronary artery dis ease 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 Take 1 tablet (50 mg)by mouth in the morning and 1 tablet (50 mg) before bedtime. 180 tablet 1 03/01/2025 05/30/2025 ActiveStart: 09-19-2023 End: 43-32-7697jtro 1 tablet by mouth in the morningmetoprolol tartrate (Lopressor) 50 MG tablet Indications: Coronary artery disease involving anvik c oronary artery 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 angina pectoris (CMS/HCC) , Primary hypertension (CMS/HCC) Take 1 tablet (50 mg) by mouth in the morning and 1 tablet (50 mg) before bedtime. 180 tablet 0 09/19/2023 12/18/2023 ActiveStart: 10-22-2019 End: 66-68-9864nbxq 1 tablet by mouth once dailyMetoprolol Succinate [...] BY MOUTH TWICE DAILYMultivitamin preparation (2 sources)Start: 20-05-4124tcsx 1 tablet by mouth once dailyMultivitamin Active 1 TAB PO Daily September 13, 2020 1:00amMultivitamin Tablet (2 sources)Start: 36-55-4516vrio 1 tablet by mouth once dailyMultivitamin Tablet Active 1 TAB PO Daily September 13, 2020 1:00amNitro Sublingual 0.4 0.4mg (20 sources)Nitro Sublingual 0.4 0.4mg 1 Sublingual Every 5min x3 PRN Active nitroglycerin 0.4 mg sublingual tablet (20 sources)Nitrate VasodilatorStart: 10-15-2023 End: 88-60-5742Kfkxw: 10-22-2019 End: 39-07-0935cngzyrhvsbywd (Nitrostat) 0.4 MG SL tablet Indications: 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 03/01/2025 05/30/2025 Active Start: 12-01-2024 End: 99-23-7739nuyi 1 tablet by mouth at bedtimeOLANZapine (ZyPREXA) 2.5 MG tablet Indications: EDITH (generalized anxiety disorder) (CMS/HCC) Take 1tablet (2.5 mg) by mouth at bedtime 90 tablet 1 12/24/2024 01/19/2025 Discontinued (Ineffective)Start: 09-19-2023 End: 00-52-0945acpz 1 tablet by mouth once dailyStart: 10-22-2019 End: 69-52-9231nupt 1 tablet by mouth once daily at bedtimeOlanzapine 5 mg Tablet Discontinued 5 MG PO Daily at bedtime October 22, 2019 12:00am October 15, 2023 5:01pmComment on above:olanzapine 5 mg tablet TAKE 1 TABLET BY MOUTH EVERY DAY AT BEDTIMEomega 0-tgy-dbp-fish oil (FISH OIL) 100-160-1,000 mg cap (16 sources)omega 4-jva-yzb-fish oil (FISH OIL) 100-160-1,000 mg cap Take by mouth. Activeomega 3-qiq-zhb-fish oil (FISH OIL) 100-160-1,000 mg cap Take by mouth. 0 ActiveComment on above:Take by mouth.[place]-3 Fatty Acids (2 sources)Start: 75-92-0171xcum 1000 mg by mouth once dailyOmega-3 Fatty Acids Active 1000 MG PO Daily September 13, 2020 1:00amOmega-3 Fatty Acids Capsule (2 sources)Start: 18-96-8621owjt 1 capsule by mouth once dailyOmega-3 Fatty Acids Capsule Active 1000 MG PO Daily September 13, 2020 1:00amPaxlovid 10 x 150 MG & 10 x 100MG (1 source)Start: 25-89-8891Sgrppjjh 10 x 150 MG & 10 x 100MG as directed Orally Twice a day for 5 days Feb, Activesertraline 100 mg oral tablet (20 sources)Serotonin Reuptake InhibitorStart: 03-11-2024 End: 07-91-8141xhpv 2 tablets by mouth once dailysertraline (Zoloft) 100 MG tablet Indications: EDITH (generalized anxiety disorder) , Recurrent major depression in partial remission Take 2 tablets (200 mg) by mouth Daily 180 tablet 1 03/01/2025 05/30/2025 ActiveStart: 80-81-7645vovc 1.5 tablets by mouth once dailyStart: 93-85-7812brde 1.5 tablets by mouth once dailyStart: 09-19-2023 End: 79-96-4523hodd 2 tablets by mouth at bedtimesertraline (Zoloft) 100 MG tablet Indications: Major Depressive Disorder Take 2 tablets (200 mg) bymouth at bedtime 180 tablet 0 09/19/2023 12/18/2023 ActiveStart: 10-22-2019 End: 23-87-1185kmnx 1 tablet by mouth once dailySertraline 100 [...] tablet (20 sources)Serotonin Reuptake InhibitorStart: 10-22-2019 End: 16-58-0770doar 1 tablet by mouth once daily at bedtimetraZODone (DESYREL) 100 mg tablet Take 100 mg by mouth daily at bedtime. 08/10/2022 ActiveComment on above:Take 100 mg by mouth daily at bedtime.Trelegy Ellipta 100-62.5-25 MCG/INH (3 sources)Start: 72-70-3776vizx 1 puff(s) by inhalation once dailyTrelegy Ellipta 100-62.5-25 MCG/INH 1 puff Inhalation Once a day for 30 days Feb, ActiveStart: 94-43-2879Dsjti: 57-55-4350oxxc 1 puff(s) by inhalation once dailyTrelegy Ellipta 100-62.5-25 MCG/INH 1 puff Inhalation Once a day for 30 days Feb, Not-Takingzolpidem tartrate 10 mg oral tablet (13 sources)gamma-Aminobutyric Acid-ergic AgonistStart: 78-67-9306whmi 1 tablet by mouth every twenty-four hoursAmbien 10 MG 1 tablet at bedtime Orally Once a day for 30 days g47.0 Jan, Active{10 (nirmatrelvir 150 MG Oral Tablet) / 10 (ritonavir 100 MG Oral Tablet) } Pack [Paxlovid 150 MG /100 MG Dose Pack] (3 sources)Start: 39-34-1878Grlwo: 27-61-5509Chdruxzt 10 x 150 MG & 10 x 100MG as directed Orally Twice a day for 5 days Feb, Active Completed/Discontinued Medications MedicationDrug Class(es)DatesSig (Normalized)Sig (Original)amoxicillin 875 mg / clavulanate 125 mg oral tablet (3 sources)Penicillin-class AntibacterialStart: 04-09-2023 End: 86-46-7381foge 1 tablet by mouth twice dailyAmoxicillin-Pot Clavulanate 875-125 mg tablet Discontinued 1 TAB PO Twice daily April 09, 2023 12:00am October 15, 2023 4:56pmdoxepin hydrochloride 50 mg oral capsule (18 sources)Tricyclic AntidepressantStart: 33-99-7033upzp 1 capsule by mouth every twenty-four hoursDoxepin HCl 100 MG 1 capsule at bedtime Orally Once a day for 30 days Nov, ActiveStart: 06-13-6168nndu 1 capsule by mouth every twenty-four hoursDoxepin HCl 25 MG 1 capsule at bedtime Orally Once a day for 30 day(s) Nov, ActiveStart: 12-04-2021 End: 06-64-5140dqzfyzb capsule 50 mg30 actuat fluticasone furoate 0.1 mg/actuat / vilanterol 0.025 mg/actuat dry powder inhaler (17 sources)Corticosteroid, beta2-Adrenergic AgonistStart: 09-13-2020 End: 37-52-3216Xzxprfnuvim Furoate-Vilanterol (Breo Ellipta) 100-25 mcg/dose blister with device Discontinued 1 INH INHALATION Daily September 13, 2020 1:00am October 15, 2023 5:02pmStart: 08-01-2020 End: 01-78-1720jlox 1 puff(s) by mouth once dailyBREO ELLIPTA 100-25 mcg/dose inhaler INHALE 1 PUFF BY MOUTH EVERY DAY 0 11/05/2021 02/09/2022 Discontinued Start: 16-79-9044Kmulcvm on above:INHALE 1 PUFF BY MOUTH EVERY DAY methylPREDNISolone (9 sources)CorticosteroidStart: 12-22-2021 End: 92-61-6751ljsxhgMSWRBPRdddni (MEDROL, TEAGAN,) 4 mg Dose-Pack Take as instructed 1 Package 0 12/22/2021 08/15/2022 DiscontinuedStart: 12-22-2021 methylPREDNISolone (MEDROL, TEAGAN,) 4 mg Dose-Pack Take as instructed 1 Package 0 12/22/2021 ActiveComment on above:Take as instructed Fqewlgdjwmbfd-Zilsehln-Xtpjuu (MULTIVITAMIN 50 PLUS) tab (9 sources) End: 00-22-6302Ibtgmgraxmzfm-Minerals-Lutein (MULTIVITAMIN 50 PLUS) tab Take 1 tablet by mouth once daily. 0 08/15/2022 Discontinued Cpekwpytxrsbv-Ymsajgys-Lmxomp (MULTIVITAMIN 50 PLUS) tab Take 1 tablet by mouth once daily. 0 ActiveComment on above:Take 1 tablet by mouth once daily. predniSONE 20 mg oral tablet (9 sources)Start: 01-19-2025 End: 26-21-2884svtezvUVZS (Deltasone) 20 MG tablet Indications: Neck pain Twice a day for 3 days, then once a day for 3 days, take with food 9 tablet 01/19/2025 03/01/2025 Discontinued (Therapy completed)Start: 77-31-4996yppyrvLMTC (DELTASONE) 20 mg tablet 60mg x3d, 40mg x3d, 20mg x3d, 10mg x4d 20 tablet 02/26/2024 ActivetraMADol hydrochloride 50 mg oral tablet (4 sources)Opioid AgonistStart: 09-30-2020 End: 34-07-2341cjmy 0.5-1 tablets by mouth every six hours as needed for pain Tramadol (Ultram) 50 mg tablet Discontinued 50 MG PO Q6H as needed for pain 10 03September 30, 2020 1:00am October 15, 2023 5:00pm 1/2 - 1 tab po q 6 hours prn pain Problems Active Problems Problem ClassificationProblemDateDocumented DateEpisodic/ChronicAbdominal hernia (4 sources)Hernia of anterior abdominal wall; Translations: [Ventral hernia without obstruction or gangrene]59-39-8618ZlbmefghUflyiat on above:Problem List clean-up per request of Phys. EHR CmteAbdominal pain (1 source)Unspecified abdominal pain; Translations: [Unspecified abdominal pain] Onset: 57-02-9663IwnmegvdBdqcu and unspecified renal failure (2 sources)Acute kidney failure, unspecified; Translations: [KELLIE (acute kidney injury) N17.9]Onset: 05-23-2021 Resolved: 74-81-2447EngmhlhtOumqopy disorders (20 sources)Generalized anxiety disorder; Translations: [Generalized anxiety disorder]Onset: 621858-63-7350ZbbtezfAorcrha kidney disease (20 sources)Chronic kidney disease stage 3; Translations: [Chronic kidney disease, stage 3 (moderate)]Onset: 710390-21-6548EnjttdlHqwqoay kidney disease (15 sources)Chronic kidney disease; Translations: [Chronic kidney disease, stage 3b]Onset: 05-23-2021 Resolved: 36-78-3474Wdkozqk obstructive pulmonary disease and bronchiectasis (20 sources)Simple chronic bronchitis; Translations: [Simple chronic bronchitis] Onset: 01-05-2022 Resolved: 39-24-5618WzeonfqQceg; stupor; and brain damage (15 sources)Daytime somnolence; Translations: [Somnolence]Onset: 01-29-2022 Resolved: 07-55-5662PtgxqnxiLsbpnnfdnbqk of device; implant or graft (20 sources)Arteriosclerosis of coronary artery bypass graft; Translations: [Atherosclerosis of coronary arterybypass graft(s) without angina pectoris] Onset: 05-23-2021 Resolved: 87-90-8670AiehvdjBciykmifpvgfg of surgical procedures or medical care (2 sources)Infection following a procedure, other surgical site, initial encounter; Translations: [Infection following a procedure, other surgical site, initial encounter]Onset: 72-06-9142SjcxnryvDfiabgtpdt heart failure; nonhypertensive (13 sources)Chronic diastolic heart failure; Translations: [Chronic diastolic (congestive) heart failure]Onset: 738757-17-2985TnipfuvFcnedkin atherosclerosis and other heart disease (20 sources)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; Translations: [Coronary arteriosclerosis]Onset: 07-27-2022 ChronicCoronary atherosclerosis and other heart disease (1 source)Presence of aortocoronary bypass graft; Translations: [Hx of CABG] Onset: 37-95-7511AhgzcevxBhulwzsytx and other anemia (3 sources)Anemia; Translations: [Anemia, unspecified]32-72-6536Bydalrcx Delirium, dementia, and amnestic and other cognitive disorders (3 sources)Dementia associated with another disease; Translations: [Dementia in other diseases classified elsewhere with behavioral disturbance]ChronicDisorders of lipid metabolism (20 sources)Hyperlipidemia; Translations: [Hyperlipidemia, unspecified]Onset: 07-18-2012 Resolved: 89-86-1700OalvqhdSizzvcidydfucj and diverticulitis (3 sources)Diverticulitis of sigmoid colon; Translations: [Diverticulitis of large intestine without perforation or abscess without bleeding]04-17-2023 ChronicEsophageal disorders (20 sources)Gastroesophageal reflux disease without esophagitis; Translations: [Gastro-esophageal reflux disease without esophagitis]Onset: 07-18-2012 67-64-8631SutexhoGaiuuwdey hypertension (20 sources)Essential hypertension; Translations: [Essential (primary) hypertension]Onset: 05-28-2014 Resolved: 71-32-3413MdjmpitGiaph and electrolyte disorders (13 sources)Hyperkalemia; Translations: [Hyperkalemia]Onset: 75-12-2691Ejwsmytl Headache; including migraine (20 sources)Migraine; Translations: [Migraine, unspecified, not intractable, without status migrainosus]Onset: 326998-90-4297JohmctfIwiee valve disorders (3 sources)Nonrheumatic mitral (valve) insufficiency; Translations: [Non- rheumatic mitral regurgitation ]Onset: 992778-74-6298PgwmrfwJnfeygudjheq with complications and secondary hypertension (20 sources)Malignant hypertensive chronic kidney disease; Translations: [Hypertensive chronic kidney disease with stage 1 through stage 4 chronic kidney disease, or unspecified chronic kidney disease]Onset: 05-23-2021 Resolved: 40-14-0596NuvmufoFmldzbq and fatigue (20 sources)Fatigue; Translations: [Chronic fatigue, unspecified]ChronicMalaise and fatigue (2 sources)Asthenia; Translations: [Weakness]76-54-8970IclvjuvmUdhkw aftercare (2 sources)Encounter for other specified surgical aftercare; Translations: [Encounter for other specified surgical aftercare]Onset: 30-19-7511UernxmbfLmnyq circulatory disease (2 sources)Presence of other vascular implants and grafts; Translations: [Presence of other vascular implants and grafts]Onset: 00-50-4217YpphwviMuwqr circulatory disease (2 sources)Disorder of arteries and arterioles, unspecified; Translations: [Disorder of arteries and arterioles, unspecified]Onset: 48-77-9153UqnmkeiUzdph circulatory disease (2 sources)Other specified symptoms and signs involving the circulatory and respiratory systems; Translations:[Other specified symptoms and signs involving the circulatory and respiratory systems]Onset: 39-83-6493UtaiutdaHpbsk circulatory disease (2 sources)Other disorder of circulatory system; Translations: [Other disorder of circulatory system]Onset: 02-91-4655GmkpxmdiAmvyo connective tissue disease (2 sources)Pain in right leg; Translations: [Pain in right leg]Onset: 04-23-2025 EpisodicOther connective tissue disease (2 sources)Pain in left leg; Translations: [Pain in left leg]Onset: 04-23-2025 EpisodicOther hereditary and degenerative nervous system conditions (20 sources)Impaired cognition; Translations: [Mild cognitive impairment, so stated]Onset: 43-90-3521VsfebvtZvzwl hereditary and degenerative nervous system conditions (1 source)Extrapyramidal and movement disorder, unspecified; Translations: [Movement disorder]Onset: 75-51-0284BaeldkcRelno lower respiratory disease (15 sources)Nodule of lung; Translations: [Solitary pulmonary nodule]Episodic Other lower respiratory disease (3 sources)Solitary pulmonary noduleOnset: 01-05-2022 Resolved: 57-82-5162LcynvhjkSaiqd lower respiratory disease (2 sources)Other forms of dyspnea; Translations: [ROMAN (dyspnea on exertion)] Onset: 02-27-2022 Resolved: 68-53-8472FabwjktwNlpvx lower respiratory disease (2 sources)Dyspnea on exertion; Translations: [Other forms of dyspnea]04-01-2025 EpisodicOther nervous system disorders (3 sources)Abnormal gait; Translations: [Unspecified abnormalities of gait and mobility]90-48-6369GyeznwkwFcqwq nervous system disorders (2 sources)Impaired xhybnuuvr38-49-7464EnayglojYovqndxpve and visceral atherosclerosis (20 sources)Atherosclerosis of arteries of the extremities; Translations: [Unspecified atherosclerosis of anvik arteries of extremities, unspecified extremity]Onset: 765885-45-0439GwkqtfiLfyipjpfj heart disease (10 sources)Pulmonary hypertension; Translations: [Pulmonary hypertension, unspecified]Onset: 880025-19-2656OoqhmwwIbwuelzt codes; unclassified (11 sources)Sleep apnea; Translations: [Sleep apnea, unspecified]ChronicResidual codes; unclassified (1 source)Sleep apnea, unspecifiedOnset: 02-27-2022 Resolved: 25-14-7691RsmystqWwmckyyd codes; unclassified (6 sources)Obstructive sleep apnea syndrome; Translations: [Obstructive sleep apnea (adult) (pediatric)]59-19-5528WoqisjoUifvbimk codes; unclassified (1 source)Obstructive sleep apnea (adult) (pediatric)ChronicResidual codes; unclassified (1 source)Obstructive sleep apnea (adult)(pediatric); Translations: [Obstructive sleep apnea (adult) (pediatric)]Onset: 77-77-0162WvhisfqTpqlbjju codes; unclassified (11 sources)History of lung lobectomy; Translations: [Acquired absence of lung [part of]]EpisodicResidual codes; unclassified (2 sources)Acquired absence of lung [part of]Onset: 02-27-2022 Resolved: 69-44-9763McwimptnHjneeqos codes; unclassified (4 sources)Amnesia; Translations: [Other amnesia]84-69-3907SfklzhtnRshhfurz codes; unclassified (1 source)Other amnesia; Translations: [Memory loss]Onset: 81-15-4020Ggavbqos Residual codes; unclassified (1 source)Memory impairment; Translations: [Other amnesia]73-67-4931QcjltqtvPjqq and subcutaneous tissue infections (2 sources)Cellulitis, unspecified; Translations: [Cellulitis, unspecified] Onset: 85-64-3299NetomppaIupgikplafx; intervertebral disc disorders; other back problems (20 sources)Cervical spondylosis; Translations: [Spondylosis without myelopathy or radiculopathy, cervical region]Onset: 875210-13-0563XozegacSmqqzsojofwp (2 sources)Consult; Translations: [Consult]Onset: 04-21-2025 Past or Other Problems Problem ClassificationProblemDateDocumented DateEpisodic/ChronicCancer of bronchus; lung (20 sources)History of malignant neoplasm of thoracic cavity structure; Translations: [Personal history of other malignant neoplasm of bronchus and lung]Onset: 02-27-2022 Resolved: 10-49-1702IydhjpubKxtbuoanmb and other anemia (5 sources)Anemia, unspecified; Translations: [Anemia, unspecified]Onset: 853389-97-0633McgavhioUluqcdsq of upper limb (20 sources)Closed fracture proximal humerus, greater tuberosity; Translations: [Nondisplaced fracture of greater tuberosity of left humerus, subsequent encounter for fracture with routine healing]Onset: 692042-61-5340Tcukbowq Mood disorders (20 sources)Depressive disorder; Translations: [Depression, unspecified depression type]Onset: 12-18-2021 Resolved: 26-68-1002IjjmyxkSharmdycwpm chest pain (2 sources)Chest pain; Translations: [Chest pain, unspecified]Onset: 09-18-2013 73-97-6461GonsuzrqCmrla connective tissue disease (20 sources)Recurrent falls ; Translations: [Repeated falls]Onset: 06-17-2024 70-82-7924EaztbuqkAdfsp connective tissue disease (2 sources)Repeated falls; Translations: [Repeated falls]Onset: 10-13-2024 EpisodicOther lower respiratory disease (7 sources)Shortness of breath; Translations: [SHORTNESS OF BREATH]Onset: 12-26-2021 Resolved: 49-82-8145SlcacedxWawbq lower respiratory disease (16 sources)Dyspnea; Translations: [Shortness of breath]Onset: 09-18-2013 EpisodicOther lower respiratory disease (2 sources)Dyspnea, unspecified; Translations: [Dyspnea, unspecified]Onset: 23-63-5345RbgwmkqiKosxm nervous system disorders (20 sources)Functional gait abnormality; Translations: [Other abnormalities of gait and mobility]Onset: 988309-51-7418XxushqvvNzmwm nervous system disorders (2 sources)Other abnormalities of gait and mobility; Translations: [Other abnormalities of gait and mobility]Onset: 64-73-8202TtsyuoytJejne screening for suspected conditions (not mental disorders or infectious disease) (2 sources)Abnormal results of cardiovascular function studies; Translations: [Abnormal result of cardiovascular function study, unspecified]Onset: 09-30-2013 72-78-0411JdytvudsAgbobjpnbxo; intervertebral disc disorders; other back problems (20 sources)Neck pain; Translations: [Cervicalgia]Onset: EpisodicSprains and strains (20 sources)Strain of muscle(s) and tendon(s) of the rotator cuff of left shoulder, subsequent encounter; Translations: [Other specified aftercare]Onset: 818576-27-3011Pnnkjwgs Results Test NameValueInterpretationReference CjingPtggkvtw18ce 07-84-827687Sji patient is Moderately Stable - Low risk [...] injury: Assess patient frequently for physical needs [place] fall precautions as indicated by assessment Instruct [...] the shift include vss, safety, and comfortNormal [facility] Health SystemMAGNESIUMon 91-21-5924Njxuuibsq [Mass/Vol]1.7 mg/dLLow1.9-2.7UnCity HospitalComment on above:Performed By: #### [id number] ####[facility] ([facility])[address] [place] [address] 30on 14-08-046816Szufv Case Management Update Multidisciplinary rounds have been [...] [facility] able to access [employer] online system to check status of patients ready. Currently system is not showing an approved home vac. [facility] is currently in communication with [facility] patient application support consultant to clarify. [facility] [...] discharge disposition appropriate for patient?: Yes New Consults:NormalUnCity Hospital30The patient is Moderately Stable - Low risk of patient condition declining or worsening The patient's goals for the shift include comfort The clinical goals for the shift include comfortNormalUniversMartins Ferry HospitalBASIC METABOLIC PANELon 48-86-1593Zzzvw gap [Moles/Vol]13 mmol/L Normal7-20UnCity HospitalComment on above:Performed By: #### [id number] #### [facility] ([facility]) [address] [place] [address]Hctlkpz [Mass/Vol]8.6 mg/dLNormal8.6-10.3UnCity HospitalComment on above:Performed By: #### [id number] #### [facility] ([facility]) [address] [place] [address]Esjlrfqm [Moles/Vol]111 mmol/MNjck37-789EypckjxnspCity HospitalComment on above:Performed By: #### [id number] #### [facility] ([facility]) [address] [place] [address]CQ8 [Moles/Vol]21 mmol/ZXitzik99-88WjfzpxrfazCity HospitalComment on above:Performed By: #### [id number] #### [facility] ([facility]) [address] [place], [place] [address]Lvjxipoziq [Mass/Vol]1.57 mg/dLHigh0.70-1.30UnCity HospitalComment on above:Performed By: #### [id number] #### [facility] ([facility]) [address] [place] [address]RMUDTADOYN FILTRATION RATE ML/MIN/1.73 SQ M.CHGVBHLHN50.5 mL/min/1.73m*2Low>60.0UnCity HospitalComment on above:Result Comment: [facility]???s estimated glomerular filtration rate (eGFR) will no [...] affect anyone group of individuals.Performed By: #### [id number] #### [facility] ([facility]) [address] [place], [place] [address]Pixcvup [Mass/Vol]102 mg/nQQvmp00-532QbenubyoseCity HospitalComment on above:Performed By: #### [id number] #### [facility] ([facility]) [address] [place], [place] [address]Pjzrpphjh [Moles/Vol]4.5 mmol/LNormal3.5-5.1UnCity HospitalComment on above:Performed By: #### [id number] #### [facility] ([facility]) [address] [place], [place] [address]Spppdj [Moles/Vol]140 mmol/CCwdpvx592-916PpcysjgkwmCity HospitalComment on above:Performed By: #### [id number] #### [facility] ([facility]) [address] [place], [place] [address]Abrv nitrogen [Mass/Vol]26 mg/dLHigh7-25UnCity HospitalComment on above:Performed By: #### [id number] #### [facility] ([facility]) [address], [place] [address]BTSG NITROGEN/CREATININE (MASS RATIO) IN SER/PLAS16.6Normal [facility] SystemComment on above:Performed By: #### [id number] #### [facility] ([facility]) [address] [place], [place] [address]SQZsw 76-84-1091Koxvjsznoyp distribution width (RBC) [Ratio]15.2 %High11.5-15.0UnCity HospitalComment on above:Performed By: #### [id number] #### [facility] ([facility]) [address] [facility] [place], [place] [address]JIBPCVVBFNI MEAN CORPUSCULAR HEMOGLOBIN CONCENTRATION (G/DL) BY VPQYXLVKE00.9 g/dLLow32.0-35.0UnCity HospitalComment on above:Performed By: #### [id number] #### [facility] ([facility]) [address] [facility] [place], [place] [address]Nggjzdcrft (Bld) [Volume fraction]26.0 %Low39.0-50.0UnCity HospitalComment on above:Performed By: #### [id number] #### [facility] ([facility]) [address] [place] [address]Xpubvbhvjw (Bld) [Mass/Vol]8.3 g/dLLow13.0-17.0UnCity HospitalComment on above:Performed By: #### [id number] #### [facility] ([facility]) [address] [place] [address]ZIK (RBC) [Entitic mass]30.6 drQwhpmu67.0-33.0UnCity HospitalComment on above:Performed By: #### [id number] #### [facility] ([facility]) [address] [place] [address]OEF (RBC) [Entitic vol]95.9 cOSadlng31.0-98.0UnCity HospitalComment on above:Performed By: #### [id number] #### [facility] ([facility]) [address] [place] [address]AYDBVUWDP (10*3/UL) IN BLOOD AUTOMATED [id number] 10*3/uLNormal 150-400UnCity HospitalComment on above:Performed By: #### [id number] #### [facility] ([facility]) [address] [place] [address]YZT (Bld) [#/Vol]2.71 10*6/uLLow4.20-5.70UnCity HospitalComment on above:Performed By: #### [id number] #### [facility] ([facility]) [address] [place] [address]LNB (Bld) [#/Vol]4.32 10*3/uLNormal4.00-10.60UnCity HospitalComment on above:Performed By: #### [id number] #### [facility] ([facility]) [address] [place] [address]UCxc 74-81-2303MZOinzxewqc Admitted 06/15/2025 for Cellulitis Discharge Diagnosis Cellulitis [...] 100-62.5-25 mcg blister with device Generic drug: puowuaozlwm-jjrgttrjq-hcolgzyw Activity May shower day of wound vac [...] consistent with sk (more content not included)...Normal [facility] SystemMAGNESIUMon 70-63-9304Irmzysacp [Mass/Vol]1.9 mg/dLNormal1.9-2.7UnCity HospitalComment on above:Performed By: #### [id number] ####[facility] ([facility])[address] [place], [place] [address]FFFT GLUCOSE METER UNSOLICITED RESULTSon 85-45-3001Tfvnloa [Mass/Vol]128 mg/aMAqji25-857GgukliezttCity HospitalComment on above:Order Comment: Waived Testing in the ED is performed under the ED CLIA certificate #[id number].Result Comment: zaxlugc91Jonvsymxm By: #### [id number] ####[facility] ([facility])[address] [place], [place] [address]lk 06-32-152215Dhjtm Case Management Update Multidisciplinary rounds have been [...] discharge disposition appropriate for patient?: Yes New Consults:NormalAdena Health SystemBASIC METABOLIC PANELon 69-65-1529Ufiwh gap [Moles/Vol]12 mmol/LNormal7-20UnCity HospitalComment on above:Performed By: #### [id number] #### [facility] ([facility]) [address] [place], [place] [address]Ebepgvj [Mass/Vol]8.1 mg/dLLow8.6-10.3UnCity HospitalComment on above:Performed By: #### [id number] #### [facility] ([facility] [address] [place] [address]Fajbzqoq [Moles/Vol]110 mmol/GNihq52-132BiyopiowunCity HospitalComment on above:Performed By: #### [id number] #### [facility] ([facility]) [address] [place] [address]BN9 [Moles/Vol]21 mmol/EVamwar13-28JoqyrugmoiCity HospitalComment on above:Performed By: #### [id number] #### [facility] ([facility]) [address] [place] [address]Lalbwmchtw [Mass/Vol]1.76 mg/dLHigh0.70-1.30UnCity HospitalComment on above:Performed By: #### [id number] #### [facility] ([facility]) [address] [place], [place] [address]KJLXEFBQPD FILTRATION RATE ML/MIN/1.73 SQ M.TIMLCGBRX56.6 mL/min/1.73m*2Low>60.0UnCity HospitalComment on above:Result Comment: [facility]???s estimated glomerular filtration rate (eGFR) will no [...] affect anyone group of individuals.Performed By: #### [id number] #### [facility] ([facility]) [address] [place] [address]Ccyernz [Mass/Vol]153 mg/yBCoph77-810UpenrjmextCity HospitalComment on above:Performed By: #### [id number] #### [facility] ([facility]) [address] [place], [place] [address]Unfewmkcu [Moles/Vol]4.1 mmol/LNormal3.5-5.1UnCity HospitalComment on above:Performed By: #### [id number] #### [facility] ([facility]) [address] [place], [place] [address]Kprcin [Moles/Vol]139 mmol/ZQwblzm368-761DwgodyzbicCity HospitalComment on above:Performed By: #### [id number] #### [facility] ([facility]) [address] [place], [place] [address]Dkte nitrogen [Mass/Vol]26 mg/dLHigh7-25UnCity HospitalComment on above:Performed By: #### [id number] #### [facility] ([facility]) [address] [place], [place] [address]RGKD NITROGEN/CREATININE (MASS RATIO) IN SER/PLAS14.8Normal [facility] SystemComment on above:Performed By: #### [id number] #### [facility] ([facility]) [address] [place], [place] [address]WPMmp 16-36-1327Ahgauhmhgoh distribution width (RBC) [Ratio]15.1 %High11.5-15.0UnCity HospitalComment on above:Performed By: #### [id number] #### [facility] ([facility]) [address] [place], [place] [address]KTGEWJSHOTG MEAN CORPUSCULAR HEMOGLOBIN CONCENTRATION (G/DL) BY POSKZGBGL30.2 g/dLLow32.0-35.0UnCity HospitalComment on above:Performed By: #### [id number] #### [facility] ([facility]) [address] [place], [place] [address]Nvngtaaabx (Bld) [Volume fraction]26.3 %Low39.0-50.0UnCity HospitalComment on above:Performed By: #### [id number] #### [facility] ([facility]) [address] [place], [place] [address]Dquigaluvd (Bld) [Mass/Vol]8.2 g/dLLow13.0-17.0UnCity HospitalComment on above:Performed By: #### [id number] #### [facility] ([facility]) [address] [place] [address]AOU (RBC) [Entitic mass]30.3 rdWqdqox05.0-33.0UnCity HospitalComment on above:Performed By: #### [id number] #### [facility] ([facility]) [address] [place], [place] [address]ZVI (RBC) [Entitic vol]97.0 hGHwdhpj53.0-98.0UnCity HospitalComment on above:Performed By: #### [id number] #### [facility] ([facility]) [address] [place] [address]QWSSUCSKI (10*3/UL) IN BLOOD AUTOMATED [id number] 10*3/uLNormal 150-400UnCity HospitalComment on above:Performed By: #### [id number] #### [facility] ([facility]) [address] [place], [place] [address]AUU (Bld) [#/Vol]2.71 10*6/uLLow4.20-5.70UnCity HospitalComment on above:Performed By: #### [id number] #### [facility] ([facility]) [address] [place], [place] [address]UFA (Bld) [#/Vol]3.91 10*3/uLLow4.00-10.60UnCity HospitalComment on above:Performed By: #### [id number] #### [facility] ([facility]) [address] [place], [place] [address]GEJLVVARWjm 35-34-5272Mexbkoacw [Mass/Vol]2.0 mg/dLNormal1.9-2.7 [facility] SystemComment on above:Performed By: #### [id number] #### [facility] ([facility]) [address] [place], [place] [address]MUXJTERDXU TIMEDon 24-73-5962MNOQOGDXZQ IN SER/PLAS - TIMED16.7 Low20.0-40.0UnCity HospitalComment on above:Performed By: #### [id number] #### [facility] ,30on 27-46-143669Anp patient is Moderately Stable - Low risk [...] continued monitoring and treatment until appropriate for discharge.NormalUnCity Hospital30Daily Case Management Update Multidisciplinary rounds have [...] infection Level of Consultation Consultation and Management 06/15/252033NormalUniversMartins Ferry Hospital30The patient is Moderately Stable - Low risk of patient condition declining or worsening The patient's goals for the shift include rest The clinical goals for the shift include vss comfortNormalUniWVUMedicine Barnesville HospitalBASIC METABOLIC PANELon 39-34-0664Yvvla gap [Moles/Vol]10 mmol/L Normal7-20UnCity HospitalComment on above:Performed By: #### [id number] #### [facility] ([facility]) [address] [place], [place] [address]Cyzafip [Mass/Vol]8.3 mg/dLLow8.6-10.3UnCity HospitalComment on above:Performed By: #### [id number] #### [facility] ([facility]) [address] [place] [address]Vuedzajs [Moles/Vol]109 mmol/ZBcjt46-064GsexavfgjiCity HospitalComment on above:Performed By: #### [id number] #### [facility] ([facility]) [address] [place] [address]OY7 [Moles/Vol]24 mmol/LUtdptf10-43YhoosrccpkCity HospitalComment on above:Performed By: #### [id number] #### [facility] ([facility]) [address] [place] [address]Xzishmxole [Mass/Vol]1.70 mg/dLHigh0.70-1.30UnCity HospitalComment on above:Performed By: #### [id number] #### [facility] ([facility]) [address] [place] [address]KRQEGEPPNU FILTRATION RATE ML/MIN/1.73 SQ M.FCYEGVNPQ41.3 mL/min/1.73m*2Low>60.0UnCity HospitalComment on above:Result Comment: [facility]???s estimated glomerular filtration rate (eGFR) will no [...] affect anyone group of individuals.Performed By: #### [id number] #### [facility] ([facility]) [address] [place] [address]Xkhpgxn [Mass/Vol]92 mg/dJCxqxos44-187KkhpjgcoouCity HospitalComment on above:Performed By: #### [id number] #### [facility] ([facility]) [address] [place], [place] [address]Orgadhfhf [Moles/Vol]4.1 mmol/LNormal3.5-5.1UnCity HospitalComment on above:Performed By: #### [id number] #### [facility] ([facility]) [address] [place], [place] [address]Nqhpkc [Moles/Vol]139 mmol/IZkdvmo125-818YjiifbcmkqCity HospitalComment on above:Performed By: #### [id number] #### [facility] ([facility]) [address] [place], [place] [address]Vvuo nitrogen [Mass/Vol]27 mg/dLHigh7-25UnCity HospitalComment on above:Performed By: #### [id number] #### [facility] ([facility]) [address] [place], [place] [address]GFIZ NITROGEN/CREATININE (MASS RATIO) IN SER/PLAS15.9Normal [facility] SystemComment on above:Performed By: #### [id number] #### [facility] ([facility]) [address] [place] [address]FPYuf 65-42-9536Zdshjbyyadc distribution width (RBC) [Ratio]15.1 %High11.5-15.0UnCity HospitalComment on above:Performed By: #### [id number] #### [facility] ([facility]) [address], [place] [address]SGSJRADOAEU MEAN CORPUSCULAR HEMOGLOBIN CONCENTRATION (G/DL) BY ZNOPMOZGZ22.9 g/dLLow32.0-35.0UnCity HospitalComment on above:Performed By: #### [id number] #### [facility] ([facility]) [address] [facility] [place], [place] [address]Odimrvpdjr (Bld) [Volume fraction]26.5 %Low39.0-50.0UnCity HospitalComment on above:Performed By: #### [id number] #### [facility] ([facility]) [address] [place] [address]Jzsxctfdbq (Bld) [Mass/Vol]8.2 g/dLLow13.0-17.0UnCity HospitalComment on above:Performed By: #### [id number] #### [facility] ([facility]) [address] [place] [address]DJH (RBC) [Entitic mass]30.3 tyGwfkef85.0-33.0UnCity HospitalComment on above:Performed By: #### [id number] #### [facility] ([facility]) [address] [place] [address]DIZ (RBC) [Entitic vol]97.8 tELbyngk50.0-98.0[facility] Health SystemComment on above:Performed By: #### [id number] #### [facility] ([facility]) [address] [place], [place] [address]MSSCAAIVX (10*3/UL) IN BLOOD AUTOMATED [id number] 10*3/uLLow 150-400UnCity HospitalComment on above:Performed By: #### [id number] #### [facility] ([facility]) [address] [place] [address]VKI (Bld) [#/Vol]2.71 10*6/uLLow4.20-5.70UnCity HospitalComment on above:Performed By: #### [id number] #### [facility] ([facility]) [address] [place] [address]OXS (Bld) [#/Vol]3.85 10*3/uLLow4.00-10.60UnCity HospitalComment on above:Performed By: #### [id number] #### [facility] ([facility]) [address] [place] [id number] 13-35-1567Xzxolzbps [Mass/Vol]1.9 mg/dLNormal1.9-2.7 [facility] SystemComment on above:Performed By: #### [id number] ####[facility] ([facility])[address] [place], [place] [address]VOJKLZBWYM TIMED on 66-99-9630VJPIFKRJUW IN SER/PLAS - TIMED8.7Low20.0-40.0UnCity HospitalComment on above:Performed By: #### [id number] ####[facility] ([facility])[address] [place], [place] [address]IYWKS METABOLIC PANELon 06-15-2025 Anion gap [Moles/Vol]9 mmol/LNormal7-20[facility] Comment on above:Performed By: #### [id number] #### [facility] ([facility]) [address] [place], [place] [address]Fnvchwu [Mass/Vol]8.2 mg/dLLow8.6-10.3UnCity HospitalComment on above:Performed By: #### [id number] #### [facility] ([facility]) [address] [place], [place] [address]Xigyvqpq [Moles/Vol]106 mmol/QJzirmi60-613TsagopuljxCity HospitalComment on above:Performed By: #### [id number] #### [facility] ([facility]) [address] [place], [place] [address]LC6 [Moles/Vol]24 mmol/JPghhnh72-81TiupuqzkhnCity HospitalComment on above:Performed By: #### [id number] #### [facility] ([facility]) [address] [place], [place] [address]Lahroeukni [Mass/Vol]1.99 mg/dLHigh0.70-1.30UnCity HospitalComment on above:Performed By: #### [id number] #### [facility] ([facility]) [address] [place], [place] [address]RUFCOQTBYV FILTRATION RATE ML/MIN/1.73 SQ M.VDIPSAZFQ85.0 mL/min/1.73m*2Low>60.0UnCity HospitalComment on above:Result Comment: [facility]???s estimated glomerular filtration rate (eGFR) will no [...] group of individuals.Performed By: #### [id number] #### [facility] ([facility]) [address] [place], [place] [address]Sehzeoy [Mass/Vol]121 mg/kTNnhw70-696BanuggkbppCity HospitalComment on above:Performed By: #### [id number] #### [facility] ([facility]) [address] [place], [place] [address]Bstaexxwu [Moles/Vol]3.9 mmol/LNormal3.5-5.1UnCity HospitalComment on above:Performed By: #### [id number] #### [facility] ([facility]) [address] [place], [place] [address]Riypdy [Moles/Vol]135 mmol/MZsv393-970LskuyemfktCity HospitalComment on above:Performed By: #### [id number] #### [facility] ([facility]) [address] [place], [place] [address]Atyg nitrogen [Mass/Vol]29 mg/dLHigh7-25UnCity HospitalComment on above:Performed By: #### [id number] #### [facility] ([facility]) [address] [place], [place] [address]JVAQ NITROGEN/CREATININE (MASS RATIO) IN SER/PLAS14.6Normal [facility] SystemComment on above:Performed By: #### [id number] #### [facility] ([facility]) [address] [place], [place] [address]APJBG CULTUREon 98-37-1382Fprslyvs identified Cx Nom (Bld)No growth at 5 daysNormalUniWVUMedicine Barnesville HospitalComment on above:Order Comment: Prior to antibiotic administrationPerformed By: #### [id number] ####[facility] ([facility])[address] [place] [address]WQX WITH AUTO DIFFERENTIALon 16-56-6316Zkxcaocbp (Bld) [#/Vol]0.03 10*3/uLNormal0.00-0.20 [facility] SystemComment on above:Performed By: #### [id number] ####[facility] ([facility])[address] [facility], [place] [address]Lmfrofehf/100 WBC (Bld)0.8 %Normal0.0-1.0UnCity HospitalComment on above: Performed By: #### [id number] ####[facility] ([facility])[address] [facility] [place], [place] [address]Ixanzfjnfns (Bld) [#/Vol]0.16 10*3/uLNormal0.00-0.50 [facility] SystemComment on above:Performed By: #### [id number] ####[facility] ([facility])[address] [place], [place] [address]Xcgycfjzlmi/100 WBC (Bld)4.1 %Normal0.0-6.0UnCity HospitalComment on above: Performed By: #### [id number] ####[facility] ([facility])[address] [place], [place] [address]Ugqqawoebin distribution width (RBC) [Ratio]14.9 %Normal 11.5-15.0UnCity HospitalComment on above:Performed By: #### [id number] ####[facility] ([facility])[address] [place] [address] ERYTHROCYTE MEAN CORPUSCULAR HEMOGLOBIN CONCENTRATION (G/DL) BY MWXSUJIIK89.7 g/bABqjjbo27.0-35.0UnCity HospitalComment on above:Performed By: #### [id number] ####[facility] ([facility] [facility] [place], [place] [address]Jyqxvllbfn (Bld) [Volume fraction]26.0 %Low39.0-50.0UnCity HospitalComment on above:Performed By: #### [id number] ####[facility] ([facility])[address] [place], [place] [address]Ngcvvicdbz (Bld) [Mass/Vol]8.5 g/dLLow 13.0-17.0UnCity HospitalComment on above:Performed By: #### [id number] ####[facility] ([facility])[address] [place], [place] [address]Oycuprla granulocytes (Bld) [#/Vol]0.11 10*3/uLNormal0.00-0.20UnCity HospitalComment on above:Performed By: #### [id number] ####[facility] ([facility])[address] [facility] [address]Slmymoez granulocytes/100 WBC (Bld)2.8 %High0.0-1.0UnCity HospitalComment on above:Performed By: #### [id number] ####[facility] ([facility])[address] [place] [address] Lymphocytes (Bld) [#/Vol]0.68 10*3/uLLow1.20-4.00UnCity HospitalComment on above:Performed By: #### [id number] ####[facility] ([facility])[address] [place] [address]Epyrvkdjqko/100 WBC (Bld)17.2 %Low 20.0-45.0UnCity HospitalComment on above:Performed By: #### [id number] ####[facility] ([facility])[address] [place], [place] [address]SZF (RBC) [Entitic mass]30.7 uyBrqpdg45.0-33.0UnCity Hospital Comment on above:Performed By: #### [id number] ####[facility] ([facility])[address] [place] [address]RHL (RBC) [Entitic vol]93.9 yFFosgfv88.0-98.0 [facility] SystemComment on above:Performed By: #### [id number] ####[facility] ([facility])[address] [place] [address]Sjmgksios (Bld) [#/Vol]0.31 10*3/uLNormal0.10-1.00UnCity HospitalComment on above:Performed By: #### [id number] ####[facility] ([facility])[address] [place] [address]Dlxppjiiw/100 WBC (Bld)7.8 %Normal5.0-12.0UnCity HospitalComment on above:Performed By: #### [id number] ####[facility] ([facility])[address] [place] [address]Autkobicgmq (Bld) [#/Vol] 2.66 10*3/uLNormal1.60-7.60UnCity HospitalComment on above: Performed By: #### [id number] ####[facility] ([facility])[address] [place] [address]Ewwyrpxunkv/100 WBC (Bld)67.3 %Qrtesb21.0-72.0UnCity HospitalComment on above:Performed By: #### [id number] ####[facility] ([facility])[address] [place] [address]VTOP (PER 100 WBCS) BY AUTOMATED COUNT0.0 %Hqyltn5YqbunrivohCity HospitalComment on above: Performed By: #### [id number] ####[facility] ([facility])[address] [place] [address]PSDKVBIEP (10*3/UL) IN BLOOD AUTOMATED LOAUT968 10*3/uLLow 150-400UnCity HospitalComment on above:Performed By: #### [id number] ####[facility] ([facility] [place] [address]WNS (Bld) [#/Vol]2.77 10*6/uLLow4.20-5.70UnCity HospitalComment on above:Performed By: #### [id number] ####[facility] ([facility])[address] [place] [address]SBN (Bld) [#/Vol]3.95 10*3/uLLow4.00-10.60UnCity HospitalComment on above:Performed By: #### [id number] ####[facility] ([facility])[address] [place] [address]JY HEAD WO IV CONTRASTon 33-20-2276VX HEAD WO IV CONTRASTCT HEAD WO IV [...] in this report. Electronically signed: Harsh Andrade MD.NormalUnProMedica Flower Hospital CenterEDNURSon 07-80-1548RIIJYTHegnkw surgeon from prior fem-pop. Sent in a picture of wound starting to have puss drainage and redness. Had a fall prior to coming in as well fell onto right side and hit the right shoulder. Denies loc or hitting headNormalUniversity of [facility] EDPROVon 36-11-9299EMYUGRClkpnohunxAdena Health System Marylou LI [facility] [address] EMERGENCY DEPARTMENT ENCOUNTER ED Room: 4172/4172- CHIEF [...] has a past medical history of Cancer (CMS/[facility]), Chronic kidney disease, Coronary artery disease, Dyspnea [...] mouth in the morning and at bedtime. exgzogjkepr-lsavzwlet-odgzuupf (Trelegy Ellipta) 100-62.5-25 mcg blister with device [...] disease, chronic, stage IV (GFR 15-29 ml/min) ([facility]); Essential hypertension; Hyperkalemia traZODone (Desyrel) 100 mg [...] Abdomen is soft. Musculo (more content not included)...NormalKeenan Private Hospital 15-44-8504KI Attestation signed by Italo Lyles MD at 06/20/2025 8:47 PM I discussed the patient with the resident who was admitted the night. There is apparently possible infection or possible dehiscence in the right groin. This will be evaluated in the morning. Patient admitted. Started on IV antibiotics. 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 History and Present Illness Kel [...] file Physical Activity: Inactive (02/28/2025) Received from [facility] Exercise Vital Sign Days of Exercise per Week: 0 days Minutes of Exercise per Session: 0 min Stress: Stress Concern Present (02/28/2025) Received from [facility] of Occupational Health - Occupational Stress Questionnaire Feeling of Stress : To some extent Social Connections: Socially Isolated (02/28/2025) Received from [facility] Social Connection and Isolation Panel Frequency of Communication with Friends and Family: More than three times a week Frequency of Social Gatherings with Friends and Family: Once a week Attends Shinto Services: Never Active Member of Clubs or [...] and atraumatic. Eyes: Extra (more content not included)...NormalUnCity Hospital LACTIC ACID WITH 4 HOUR REFLEXon 79-97-1724JSLCSSU (MMOL/L) IN SER/PLAS0.8 mmol/LNormal0.5-2.2UnCity HospitalComment on above:Performed By: #### [id number] #### [facility] ([facility]) [address] [place], [place] [address]NNTAI CULTUREon 15-91-3750knQOChspu [Susc]ResistantUnCity HospitalComment on above:Order Comment: Cefepime (when cefepime JOSE value is <=2 ug/ml) and meropenem (when cefepime is JOSE >=4 ug/ml and meropenem JOSE value is susceptible) are the preferred therapies for this organism due to moderate-high risk of AmpC beta-lactam production. Fluoroquinolones and trimethoprim-sulfamethoxazole may be considered as alternative intravenous or oral therapy options.Performed By: #### [id number] ####[facility] ([facility])[address] [place], [place] [address]Cqtzopjd [Susc] <=1SusceptibleUnCity HospitalComment on above:Order Comment: Cefepime (when cefepime JOSE value is <=2 ug/ml) and meropenem (when cefepime is JOSE >=4 ug/ml and meropenem JOSE value is susceptible) are the preferred therapies for this organism due to moderate-high risk of AmpC beta-lactam production. Fluoroquinolones and trimethoprim-sulfamethoxazole may be considered as alternative intravenous or oral therapy options.Performed By: #### [id number] ####[facility] ([facility])[address] [place], [place] [address]Cznycjfempvvh [Susc]<=0.25SusceptibleUnCity HospitalComment on above:Order Comment: Cefepime (when cefepime JOSE value is <=2 ug/ml) and meropenem (when cefepime is JOSE >=4 ug/ml and meropenem JOSE value is susceptible) are the preferred therapies for this organism due to moderate-high risk of AmpC beta- lactam production. Fluoroquinolones and trimethoprim-sulfamethoxazole may be considered as alternative intravenous or oral therapy options.Performed By: #### [id number] ####[facility] ([facility])[address] [place] [address] levoFLOXacin [Susc]<=0.5SusceptibleUnlone peak hospital Hampton Medical CenterComment on above:Order Comment: Cefepime (when cefepime JOSE value is <=2 ug/ml) and meropenem (when cefepime is JOSE >=4 ug/ml and meropenem JOSE value is susceptible) are the preferred therapies for this organism due to moderate-high risk of AmpC beta-lactam production. Fluoroquinolones and trimethoprim-sulfame thoxazole may be considered as alternative intravenous or oral therapy options. Performed By: #### [id number] ####[facility] ([facility])[address] [place], [place] [address]Pyvlxclcl [Susc]<=0.5SusceptibleUnCity HospitalComment on above:Order Comment: Cefepime (when cefepime JOSE value is <=2 ug/ml) and meropenem (when cefepime is JOSE >=4 ug/ml and meropenem JOSE value is susceptible) are the preferred therapies for this organism due to moderate-high risk of AmpC beta-lactam production. Fluoroquinolones and trimethoprim-sulfame thoxazole may be considered as alternative intravenous or oral therapy options. Performed By: #### [id number] ####[facility] ([facility])[address] [place], [place] [address]Zexugmw comment (Unsp spec) [Interp]CEFENormalUniWVUMedicine Barnesville HospitalComment on above:Order Comment: Cefepime (when cefepime JOSE value is <=2 ug/ml) and meropenem (when cefepime is JOSE >=4 ug/ml and meropenem JOSE value is susceptible) are the preferred therapies for this organism due to moderate-high risk of AmpC beta-lactam production. Fluoroquinolones and trimethoprim-sulfamethoxazole may be considered as alternative intravenous or oral therapy options.Performed By: #### [id number] ####[facility] ([facility])[address] [place], [place] [address]Kkezsqhbpzvb+Sulfamethoxazole [Susc] <=0.5/9.5SusceptibleAdena Health SystemComment on above:Order Comment: Cefepime (when cefepime JOSE value is <=2 ug/ml) and meropenem (when cefepime is JOSE >=4 ug/ml and meropenem JOSE value is susceptible) are the preferred therapies for this organism due to moderate-high risk of AmpC beta- lactam production. Fluoroquinolones and trimethoprim-sulfamethoxazole may be considered as alternative intravenous or oral therapy options.Performed By: #### [id number] ####[facility] ([facility])[address] [place] [address] Follow-Upon 82-78-0637Wmhseu-[id number] JoseKel 1955 M Date Provider Department Center 06/14/2025 [id number]-LMYOJIRAIS ARRINGTON HVCVASENDO IN HeartVAS Family History Problem Relation Age of Onset Diabetes Mother Family Status - Relation Status Age at Mother Level of Service:[address] [place] POSTOP FOLLOW UP VISIT RELATED TO ORIGINAL PX Reason for Visit and Comments: Post-op Problem [529016]NormalBellevue HospitalPROVon 95-77-2412EUCXUQWohlswg of Present Illness Chief Complaint Patient presents [...] Drug use: Defer Karan Hawkins MD 06/12/25 0231NormalUniversMartins Ferry HospitalCBCon 06-09-2025 Erythrocyte distribution width (RBC) [Ratio]14.3 %Wmkvek02.5-15.0UnCity HospitalComment on above:Performed By: #### [id number] #### [facility] ,ERYTHROCYTE MEAN CORPUSCULAR HEMOGLOBIN CONCENTRATION (G/DL) BY OPVDLFKPI32.0 g/bYLgmpzz02.0-35.0UnCity HospitalComment on above:Performed By: #### [id number] #### [facility] ,Hematocrit (Bld) [Volume fraction]31.6 %Low39.0-50.0UnCity HospitalComment on above:Performed By: #### [id number] #### [facility] ,Hemoglobin (Bld) [Mass/Vol]10.1 g/dLLow13.0-17.0UnCity HospitalComment on above:Performed By: #### [id number] #### [facility] ,MCH (RBC) [Entitic mass]30.4 haAncvbj29.0-33.0UnCity HospitalComment on above:Performed By: #### [id number] #### [facility] ,MCV (RBC) [Entitic vol]95.2 rTJtunec54.0-98.0UnCity HospitalComment on above:Performed By: #### [id number] #### [facility] ,PLATELETS (10*3/UL) IN BLOOD AUTOMATED [id number] 10*3/kMKud466-559LwjlfypujmCity HospitalComment on above:Performed By: #### [id number] #### [facility] ,RBC (Bld) [#/Vol]3.32 10*6/uLLow4.20-5.70UnCity Hospital Comment on above:Performed By: #### [id number] #### [facility] ,WBC (Bld) [#/Vol]8.42 10*3/uLNormal4.00-10.60UnCity HospitalComment on above:Performed By: #### [id number] #### [facility] ,DSon 61-64-1675AUIpkqjnmzu Provider: Italo Lyles MD Discharge Provider: No [...] 100-62.5-25 mcg blister with device Generic drug: mzjxhmizxyl-lclqqznze-datyznhl ASK your doctor about these medications Instructions Last Dose Given Next Dose Due nitroglycerin 0.4 mg SL tablet Commonly known as: Nitrostat Where to Get Your Medications These medications were sent to [facility] - [place], [place] - [address] [place] [address] [place] [address], [facility] [address] acetaminophen 500 mg tablet rivaroxaban 2.5 mg tablet Activity: activity as tolerated Diet: regular diet Time spent on discharge: >[address] Noa Watson MD for the opportunity to be involved in this patient's care.[facility] HospitalURSNOTHonorhealth [facility]25 NURSNOTEPatient Name: Kel Castillo [...] Babak Garcia RN Rapid Response Team Nurse [phone] 06/09/2025 12:12 [facility] CenterNURSNOTEPatient Name: Kel Castillo : 1955 Primary Care [...] nurse, but encouraged to reach out to TOOL SETTER if anything changes over night. Justo Cabrera RN Rapid Response Team Nurse [phone] 06/09/2025 12:47 [facility]30on [id number] patient is Moderately Stable - Low risk [...] - Adult Goal: Maintains hematologic stability Outcome: ProgressingNormalUniWVUMedicine Barnesville Hospital30Problem: Musculoskeletal - Adult Goal: Return mobility to safest level of function Outcome: Progressing Problem: Metabolic/Fluid and Electrolytes - Adult Goal: Electrolytes maintained within normal limits Outcome: Progressing Goal: Hemodynamic stability and optimal renal function maintained Outcome: Progressing Goal: Glucose maintained within prescribed range Outcome: Progressing Problem: Hematologic - Adult Goal: Maintains hematologic stability Outcome: ProgressingNormalUniWVUMedicine Barnesville Hospital30Problem: Activity Intolerance/Impaired Mobility Goal: Mobility/activity is [...] - Adult Goal: Maintains hematologic stability Outcome: ProgressingNormalUniversMartins Ferry Hospital36on Environmental Designer spoke with patient's daughter and daughter verbally understood.Normal [facility] Health SystemBASIC METABOLIC PANELon 55-43-8355Lrypl gap [Moles/Vol]12 mmol/LNormal7-20UnCity HospitalComment on above:Performed By: #### [id number] ####[facility] ([facility])[address] [place], [place] [address]Omtniwt [Mass/Vol]9.2 mg/dLNormal8.6-10.3UnCity HospitalComment on above:Performed By: #### [id number] ####[facility] ([facility])[address] [place], [place] [address]Cqpnmfrr [Moles/Vol]105 mmol/LNormal 98-107UnCity HospitalComment on above:Performed By: #### [id number] ####[facility] ([facility])[address] [place], [place] [address]RT3 [Moles/Vol]24 mmol/SUfzvkl67-11ChgeigjavzCity HospitalComment on above:Performed By: #### [id number] ####[facility] ([facility])[address] [place], [place] [address]Knbcmbuazl [Mass/Vol]1.78 mg/dLHigh0.70-1.30UnCity HospitalComment on above:Performed By: #### [id number] ####[facility] ([facility])[address] [place] [address]BTTRPNITUD FILTRATION RATE ML/MIN/1.73 SQ M.EIMZRLRQY14.0 mL/min/1.73m*2Low>60.0UnCity HospitalComment on above:Result Comment: [facility]???s estimated glomerular filtration rate (eGFR) will no [...] anyone group of individuals.Performed By: #### [id number] ####[facility] ([facility])[address], [place] [address]Bdpfdhv [Mass/Vol]117 mg/oDVats21-477ThmooxovbzCity HospitalComment on above:Performed By: #### [id number] ####[facility] ([facility])[address] [place] [address]Jgbwsmyvz [Moles/Vol]4.8 mmol/LNormal3.5-5.1UnCity HospitalComment on above:Performed By: #### [id number] ####[facility] ([facility])[address] [place] [address]Mogpkh [Moles/Vol]136 mmol/L Qhmehu599-855VnqolnxmvlCity HospitalComment on above:Performed By: #### [id number] ####[facility] ([facility])[address], [place] [address]Xrec nitrogen [Mass/Vol]23 mg/dLNormal7-25UnCity HospitalComment on above:Performed By: #### [id number] ####[facility] ([facility])[address] [place] [address]QEQY NITROGEN/CREATININE (MASS RATIO) IN SER/PLAS12.9Normal [facility] Health SystemComment on above:Performed By: #### [id number] ####[facility] ([facility])[address] [place] [address]JBFvi 06-08-2025 Erythrocyte distribution width (RBC) [Ratio]14.0 %Lglcdf08.5-15.0UnCity HospitalComment on above:Performed By: #### [id number] ####[facility] ([facility])[address] [place] [address]HRBWZNLVKVQ MEAN CORPUSCULAR HEMOGLOBIN CONCENTRATION (G/DL) BY WHVKACVWZ52.7 g/fQTxtaah97.0-35.0 [facility] Health SystemComment on above:Performed By: #### [id number] ####[facility] ([facility])[address] [place], [place] [address]Hqbmhnchlb (Bld) [Volume fraction]27.6 %Low39.0-50.0UnCity HospitalComment on above:Performed By: #### [id number] ####[facility] ([facility])[address] [place], [place] [address]Gdxnvmdaii (Bld) [Mass/Vol]9.3 g/dLLow13.0-17.0UnCity HospitalComment on above:Performed By: #### [id number] ####[facility] ([facility])[address] [place], [place] [address]KKI (RBC) [Entitic mass] 30.3 feCzdzky24.0-33.0UnCity HospitalComment on above: Performed By: #### [id number] ####[facility] ([facility])[address] [place] [address]JLN (RBC) [Entitic vol]89.9 vDWarbuw48.0-98.0UnCity HospitalComment on above:Performed By: #### [id number] ####[facility] ([facility])[address] [address]DDVXXDSNW (10*3/UL) IN BLOOD AUTOMATED NOZIE252 10*3/pVHal345-768ZjnbukpqwfCity Hospital Comment on above:Performed By: #### [id number] ####[facility] ([facility])[address] [address]LKN (Bld) [#/Vol]3.07 10*6/uLLow4.20-5.70UnCity HospitalComment on above:Performed By: #### [id number] ####[facility] ([facility])[address] [address]PTV (Bld) [#/Vol]9.13 10*3/uLNormal4.00-10.60UnCity HospitalComment on above: Performed By: #### [id number] ####[facility] ([facility])[address] [place] [address]EUMEMXESJsk 09-65-0412Nxayjbmjz [Mass/Vol]2.2 mg/dLNormal 1.9-2.7UnCity HospitalComment on above:Performed By: #### [id number] ####[facility] ([facility])[address] [place] [address] PHOSPHORUSon 46-65-8905Hnivaslww [Mass/Vol]4.8 mg/dLNormal2.5-5.0UnCity HospitalComment on above:Performed By: #### [id number] #### [facility] ([facility]) [address] [place] [address]gl 10-38-814287Hwk patient is Moderately Stable - Low risk of patient condition declining or worsening The patient's goals for the shift include: pain management, comfort The clinical goals for the shift include: hemodynamically stable, pain managementNormalUniversity ACMC Healthcare SystemABG COMPLETE UNSOLICITED RESULTSon [id number] [facility] SystemComment on above:Result Comment: C^IncalculablePerformed By: #### [id number] #### [facility] ,Base excess Calc (Bld) [Moles/Vol]-0.9000 mmol/LNormal-2.0-3.0UnCity HospitalComment on above:Performed By: #### [id number] #### [facility] ,CALCIUM IONIZED, ARTERIAL1.49 mmol/LHigh1.13-1.32UnCity HospitalComment on above:Performed By: #### [id number] #### [facility] ,CARBOXYHEMOGLOBIN, ARTERIAL2.1 %NormalUnCity Hospital Comment on above:Performed By: #### [id number] #### [facility] ,Chloride [Moles/Vol]109 mmol/RZlsn10-327KvtcqxmvnvAdena Health System Comment on above:Performed By: #### [id number] #### [facility] ,CO2 (Bld) [Partial pressure]37 mm[Hg]Wranyp92-03FiqgbixcrzCity HospitalComment on above:Performed By: #### [id number] #### [facility]OD [facility] ,DEOXYGENATED HEMOGLOBIN, ARTERIAL2.4 %NormalAdena Health System Comment on above:Performed By: #### [id number] #### [facility] ,Glucose [Mass/Vol]137 mg/oIStgl92-67NvjjltloszAdena Health SystemComment on above:Performed By: #### [id number] #### [facility] B[facility]OD [facility] ,HCO3 (Bld) [Moles/Vol]23.5 mmol/GHwzmic80.0-28.0UnCity HospitalComment on above:Performed By: #### [id number] #### [facility] B[facility]OD [facility] ,Hematocrit (Bld) [Volume fraction]31 %Qbm09-46LwhqdjpymsAdena Health SystemComment on above:Performed By: #### [id number] #### [facility] B[facility]OD [facility] ,Hemoglobin (Bld) [Mass/Vol]10.4 g/dLNormalUniWVUMedicine Barnesville Hospital Comment on above:Performed By: #### [id number] #### [facility]OD [facility] ,LACTATE, ARTERIAL1.10 mmol/LNormal0.36-1.39[facility] Comment on above:Performed By: #### [id number] #### [facility]OD [facility] ,METHEMOGLOBIN, ARTERIAL0.8 %Normal0.0-1.5[facility] Comment on above:Performed By: #### [id number] #### [facility] B[facility]OD [facility] ,Oxygen (Bld) [Partial pressure]76 mm[Hg]Dtg34-159IeylerohovCity HospitalComment on above:Performed By: #### [id number] #### [facility] BLOOD [facility] ,OXYGEN SATURATION (%) IN ARTERIAL BLOOD97.5 %Xjvbuo35.0-100.0Adena Health SystemComment on above:Performed By: #### [id number] #### [facility] B[facility]OD [facility] ,OXYGENATED HEMOGLOBIN IN ARTERIAL BLOOD94.6 %Bllmup51.0-97.0UnCity HospitalComment on above:Performed By: #### [id number] #### [facility] B[facility]OD [facility] ,PAO2/UDP4UiklwxWiplbnoxfb ACMC Healthcare SystemComment on above:Result Comment: C^IncalculablePerformed By: #### [id number] #### [facility] B[facility]OD [facility] ,PF RATIONormalAdena Health SystemComment on above:Result Comment: C^IncalculablePerformed By: #### [id number] #### [facility]OD [facility] ,PH OF ARTERIAL BLOOD7.54Ylqlaa7.35-7.45[facility] Comment on above:Performed By: #### [id number] #### [facility]OD [facility] ,Potassium [Moles/Vol]4.4 mmol/LNormal3.4-5.2[facility] Comment on above:Performed By: #### [id number] #### [facility] ,Sodium [Moles/Vol]137 mmol/KQnngaz574-688IrjvqwjytqCity Hospital Comment on above:Performed By: #### [id number] #### [facility] B[facility]OD [facility] ,PCTDHLAJFBS40.0 ???CNormalAdena Health SystemComment on above: Performed By: #### [id number] #### [facility] B[facility]OD [facility] ,BASIC METABOLIC PANELon 26-27-7074Pmouh gap [Moles/Vol]12 mmol/LNormal7-20 Adena Health SystemComment on above:Performed By: #### [id number] ####[facility] ([facility])[address] [place], [place] [address]Wnbfurf [Mass/Vol]9.3 mg/dLNormal8.6-10.3UnCity HospitalComment on above:Performed By: #### [id number] ####[facility] ([facility])[address] [place], [place] [address]Cbyrokxs [Moles/Vol]107 mmol/JJhqovx57-681YucgagvupeCity HospitalComment on above:Performed By: #### [id number] ####[facility] ([facility])[address] [place], [place] [address]XI2 [Moles/Vol]23 mmol/LNormal 21-31UnCity HospitalComment on above:Performed By: #### [id number] ####[facility] ([facility])[address] [place], [place] [address]Zutzwvljyo [Mass/Vol]1.74 mg/dLHigh0.70-1.30UnCity HospitalComment on above:Performed By: #### [id number] ####[facility] ([facility])[address] [place], [place] [address]GKBTTLFRVT FILTRATION RATE ML/MIN/1.73 SQ M.OWBURSBCU66.1 mL/min/1.73m*2Low>60.0UnCity HospitalComment on above:Result Comment: [facility]???s estimated glomerular filtration rate (eGFR) will no [...] anyone group of individuals.Performed By: #### [id number] ####[facility] ([facility])[address] [place] [address]Nxamfhz [Mass/Vol]127 mg/wLVohy38-415ZbpxipixrdCity HospitalComment on above:Performed By: #### [id number] ####[facility] ([facility])[address] [place], [place] [address]Yltncqrkr [Moles/Vol]4.1 mmol/L Normal3.5-5.1UnCity HospitalComment on above:Performed By: #### [id number] ####[facility] ([facility])[address] [place] [address] Sodium [Moles/Vol]138 mmol/OWrmnam868-708DwmrrumlctCity Hospital Comment on above:Performed By: #### [id number] ####[facility] ([facility])[address] [place], [place] [address]Suky nitrogen [Mass/Vol]23 mg/dLNormal7-25 Adena Health SystemComment on above:Performed By: #### [id number] ####[facility] ([facility])[address] [place], [place] [address]YWAY NITROGEN/CREATININE (MASS RATIO) IN SER/PLAS13.2NormalUnCity HospitalComment on above:Performed By: #### [id number] ####[facility] ([facility])[address] [place], [place] [address]LKPzt 47-54-5028Nzgwkkxrxhl distribution width (RBC) [Ratio]14.0 %Oejygd62.5-15.0UnCity HospitalComment on above:Performed By: #### [id number] #### [facility] ([facility]) [address] [place] [place], [place] [address]FCLSJMKQVKK MEAN CORPUSCULAR HEMOGLOBIN CONCENTRATION (G/DL) BY JCQMJSITY47.2 g/zQQwwsra00.0-35.0UnCity HospitalComment on above:Performed By: #### [id number] #### [facility] ([facility]) [address] [place] [place], [place] [address]Mztyeryxuk (Bld) [Volume fraction]29.2 %Low39.0-50.0UnCity HospitalComment on above:Performed By: #### [id number] #### [facility] ([facility]) [address] [facility] [place], [place] [address]Ezwkdljrsr (Bld) [Mass/Vol]9.7 g/dLLow13.0-17.0UnCity HospitalComment on above:Performed By: #### [id number] #### [facility] ([facility]) [address] [place], [place] [address]IVSQEGRN PLATELET FRACTION %0.7 %Low0.8-6.3UnCity HospitalComment on above:Performed By: #### [id number] #### [facility] ([facility]) [address] [place], [place] [address]TLL (RBC) [Entitic mass]30.4 nrNcqybl14.0-33.0UnCity HospitalComment on above:Performed By: #### [id number] #### [facility] ([facility]) [address] [place], [place] [address]DAE (RBC) [Entitic vol]91.5 eOAepmsy39.0-98.0UnCity HospitalComment on above:Performed By: #### [id number] #### [facility] ([facility]) [address] [place], [place] [address]PNINJITKS (10*3/UL) IN BLOOD AUTOMATED FJEDQ194 10*3/uLLow 150-400UnCity HospitalComment on above:Performed By: #### [id number] #### [facility] ([facility]) [address] [place], [place] [address]XCT (Bld) [#/Vol]3.19 10*6/uLLow4.20-5.70UnCity HospitalComment on above:Performed By: #### [id number] #### [facility] ([facility]) [address] [place], [place] [address]XCB (Bld) [#/Vol]8.07 10*3/uLNormal4.00-10.60UnCity HospitalComment on above:Performed By: #### [id number] #### [facility] ([facility]) [address] [place], [place] [address]GUUZXMRBE - TISSUE EXAMon [phone] AP CASE REPORTNormal Adena Health SystemComment on above:Order Comment: Pre-op diagnosis: Lower extremity pain, bilateral [M79.604, M79.605] Severe claudication [I73.9] Encounter for pre-operative examination [Z01.818]Result Comment: Surgical Pathology Case: [id number] Authorizing Provider: Italo Lyles MD Collected: 06/07/2025 174 Ordering Location: [facility] Main Operating Room Received: 06/08/2025 0806 Pathologist: Pop Salinas MD Specimen: Groin, Right Common femoral artery , Profunda Artery Plaque and others Performed By: #### [id number] #### [facility] ([facility]) [address] [place], [place] [address]GDM AP CLINICAL INFORMATIONNormalUniversMartins Ferry HospitalComment on above:Order Comment: Pre-op diagnosis: Lower extremity pain, bilateral [M79.604, M79.605] Severe claudication [I73.9] Encounter for pre-operative examination [Z01.818]Result Comment: Post-Op Diagnoses M79.604, M79.605 - Lower extremity pain, bilateral [ICD-10-CM] I73.9 - Severe claudication [ICD-10-CM] Z01.818 - Encounter for pre-operative examination [ICD-10-CM]Performed By: #### [id number] #### [facility] ([facility]) [address] [facility] [place], [place] [address]EDF AP GROSS DESCRIPTIONA. Groin.NormalUnCity HospitalComment on above:Order Comment: Pre-op diagnosis: Lower [...] cm in diameter with 40-50% luminal narrowing. [employer] Product Manager sections havebeen submitted in one cassette following decalcification. The remainder of the specimen is contained within its formalin container. Rom Iglesias, PGY-2Performed By: #### [id number] #### [facility] ([facility]ER) [address] [place], [place] [address]ZYN AP MICROSCOPIC DESCRIPTIONMicroscopic examination performed. [facility] HospitalComment on above:Order Comment: Pre-op diagnosis: Lower extremity pain, bilateral [M79.604, M79.605] Severe claudication [I73.9] Encounter for pre-operative examination [Z01.818]Performed By: #### [id number] #### [facility] ([facility] [address] [place], [place] [address]XCX AP REPORT FINAL DIAGNOSIS NARRATIVENormalUniWVUMedicine Barnesville HospitalComment on above:Order Comment: Pre-op diagnosis: Lower extremity pain, bilateral [M79.604, M79.605] Severe claudication [I73.9] Encounter for pre-operative examination [Z01.818]Result Comment: A. Right common femoral artery and profunda artery plaque, endarterectomy: - Calcified atherosclerotic plaque with osteoid metaplasia. at 0824 EDTPerformed By: #### [id number] #### [facility] ([facility]) [address] [place], [place] [address]MYdo 19-53-8305GRLllszgc Of Present Illness Kel Castillo is a [...] has had an HUBER study done at [facility] on 02/23/25 where right PT was, 0.55. right DP 0.53, right TBI 0.32, left PT 0.6, left DP 0.63, left TBI 0.51. He had a aortogram done by Dr. 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 Patient is taking [...] Resource Strain: Low Risk (02/28/2025) Received from [facility] mydeco Overall Financial Resource Strain (CARDIA) Difficulty of Paying Living Expenses: Not very hard Food Insecurity: No Food Insecurity (03/10/2025) [facility] Hunger Screening Within the past 12 months we worried whether our food would run out before we got money to buy more.: Never True Within the past 12 months the food we bought just didn't last and we didn't have money to get more.: Never True Transportation Needs: No Transportation Needs (02/28/2025) Received from [facility] - Transportation Lack of Transportation (Medical): No Lack of Transportation (Non-Medical): No Physical Activity: Inactive (02/28/2025) Received from [facility] Exercise Vital Sign Days of Exercise per Week: 0 days Minutes of Exercise per Session: 0 min Stress: Stress Concern Present (02/28/2025) Received from [facility] of Occupational Health - Occupational Stress Questionnaire Feeling of Stress : To some extent Social Connections: Socially Isolated (02/28/2025) Received from [facility] Social Connection and Isolation Panel [NHANES] Frequency of Communication with Friends and Family: More than three times a week Frequency of Social Gatherings with Friends and Family: Once a week Attends Shinto Services: Never Active Member of Clubs or Organizations: No Attends Club or Organization Meetings: Never Marital Status: Intimate Partner Violence: Not At Risk (02/28/2025) Received from [facility] Humiliation, Afraid, Rape, and Kick questionnaire Fear of Current or Ex-Partner: No Emotionally Abused: No Physically Abused: No Sexually Abused: No Housing Stability: Low Risk (02/28/2025) Received from [facility] Housing Stability Vital Sign Unable to Pay [...] (L) 05/31/2025 BCR 18.3 (more content not included)...NormalUnCity Hospital MAGNESIUMon 93-91-6985Jebbfikrc [Mass/Vol]1.5 mg/dLLow1.9-2.7UnCity HospitalComment on above:Performed By: #### [id number] ####[facility] ([facility])[address] [place], [place] [address]STIYSNBPyd 06-07-2025 NURSNOTEPrior to surgery bilateral posterior tibial and dorsalis pedis pulses assessed with positive pulses detected via doppler @1520 Post surgery bilateral posterior tibial and dorsalis pedis pulses assessed with positive pulses detected via doppler @1815NormalUniversMartins Ferry HospitalOPNOTEon 06-82-3048PHQXRNRnqyo Femoral- Popliteal Bypass with 8mm Propaten Graft above the knee (R), ENDARTERECTOMY, COMMON FEMORAL ARTERY, PROFUNDA , AND (R) Operative Note Date: 06/07/2025 Location: [facility] OR Name: Kel Castillo, : 1955, Diagnosis Pre-op Diagnosis * Lower extremity pain, bilateral [M79.604, M79.605] * Severe claudication [I73.9] * Encounter for pre-operative examination [Z01.818] Post-op Diagnosis * Lower extremity pain, bilateral [M79.604, M79.605] * Severe claudication [I73.9] * Encounter for pre-operative examination [Z01.818] Procedures Right Femoral- Popliteal Bypass with 8mm Propaten Graft above the knee 92364 - FL BYPASS W/VEIN FEMORAL-POPLITEAL ENDARTERECTOMY, COMMON FEMORAL ARTERY, [...] - TISSUE EXAM Italo Lyles MD 06/07/25 3954 Description: Right Common femoral artery , Profunda Artery Plaque and others Implants Type Name Action Serial No. Collagen GRAFT,THIN-WALL,8X80CM,70CM - [id number] - [id number] Implanted [id number] Staff: Head Of Integrated Media: Carlos Rivera RN Relief Head Of Integrated Media: Michelle Snow RN Relief Scrub: Brina Sanchez CST Scrub Person: Mariana Peralta CST; Ana Irizarry Packing Machine Pilot Can Router: Maria Ines Gilmore RN Orientee Head Of Integrated Media: Becca Maldonado RN Indications: Kel Castillo is [...] was identified, vessels loops were placed around PROFESSIONAL NURSING ASSISTANT, SFA and PFA, heparin was administered and PROFESSIONAL NURSING ASSISTANT was clamped higher just below inguinal ligament were the artery was soft and free of plaque. Distal PROFESSIONAL NURSING ASSISTANT was then opened up with 11 blade scalpel in longitudinal fashion and arteriotomy was extended caudally with potz scissors to the level of the bifurcation. Extensive amount of plaque was noted in this area, endarterectomy of PROFESSIONAL NURSING ASSISTANT, profunda and ostium of SFA was performed. [...] hemodynamically stable. Condition: stable Omer Nathan MDNormalUniversity ACMC Healthcare SystemPHOSPHORUS on 68-27-1181Zsjamljtv [Mass/Vol]4.1 mg/dLNormal2.5-5.0UnCity HospitalComment on above:Performed By: #### [id number] #### [facility] ([facility]) [address] [place], [place] [address]FIGZ ACTIVATED CLOTTING TIME UNSOLICITED RESULTSon 06-08-2481WBL ACTIVATED CLOTTING INNW034 alsUwfq06-723PtartdderaCity Hospital Comment on above:Performed By: #### [id number] #### [facility] ([facility]) [address] [place], [place] [address]FRMH GLUCOSE METER UNSOLICITED RESULTSon 87-77-7914Cfzdanr [Mass/Vol]87 mg/sDRpqamw95-501HgslmhdrfaCity HospitalComment on above:Order Comment: Pre-op diagnosis: Lower extremity pain, bilateral [M79.604, M79.605] Severe claudication [I73.9] Encounter for pre-operative examination [Z01.818]Result Comment: acastil5 Performed By: #### [id number] #### [facility] ([facility]) [address] [place], [place] [address] 77-90-729870Kjmzqjuyf, daughter needs to know if patient is cleared for surgery by Dr. WestUnCity HospitalBASIC METABOLIC PANELon 46-20-9845Dtzrx gap [Moles/Vol]12 mmol/LNormal7-20UnCity HospitalComment on above:Performed By: #### [id number] #### [facility] ,Calcium [Mass/Vol]8.9 mg/dLNormal8.6-10.3Un[facility] Comment on above:Performed By: #### [id number] #### [facility]OD [facility] ,Chloride [Moles/Vol]108 mmol/FFwmj54-693KdlwtffgrgCity Hospital Comment on above:Performed By: #### [id number] #### [facility] B[facility]OD [facility] ,CO2 [Moles/Vol]25 mmol/BSpvnzw36-90KmqrabtjyaCity HospitalComment on above:Performed By: #### [id number] #### [facility]OD [facility] ,Creatinine [Mass/Vol]1.97 mg/dLHigh0.70-1.30[facility] Comment on above:Performed By: #### [id number] #### [facility] B[facility]OD [facility] ,GLOMERULAR FILTRATION RATE ML/MIN/1.73 SQ M.UXSTFIKMQ05.4 mL/min/1.73m*2Low >60.0UnCity HospitalComment on above:Result Comment: [facility]???s estimated glomerular filtration rate (eG FR) will [...] anyone group of individuals. Performed By: #### [id number] #### [facility] B[facility]OD [facility] ,Glucose [Mass/Vol]99 mg/nDSndlfu78-638FcmxlvrnrgAdena Health System Comment on above:Performed By: #### [id number] #### [facility]OD [facility] ,Potassium [Moles/Vol]5.1 mmol/LNormal3.5-5.1Un[facility] Comment on above:Performed By: #### [id number] #### [facility]OD [facility] ,Sodium [Moles/Vol]140 mmol/BJgxbkm532-975QexjekniyeCity Hospital Comment on above:Performed By: #### [id number] #### [facility]OD [facility] ,Urea nitrogen [Mass/Vol]36 mg/dLHigh7-25[facility] Comment on above:Performed By: #### [id number] #### [facility] B[facility]OD [facility] ,UREA NITROGEN/CREATININE (MASS RATIO) IN SER/PLAS18.3NormalUniWVUMedicine Barnesville HospitalComment on above:Performed By: #### [id number] #### [facility]OD [facility] ,Labon [id number] JoseKel 1955 M Date Provider Department Felt 05/31/2025 2245-[facility] OPD LAB RESOURCE [facility] OPD [facility] C Family History Problem Relation Age of Onset Diabetes Mother Family Status - Relation Status Age at MotherNoalUniWVUMedicine Barnesville HospitalBASIC METABOLIC PANELon 55-53-8896Hkdtj gap [Moles/Vol]12 mmol/LNormal7-20UnCity HospitalComment on above:Performed By: #### [id number] ####[facility] ([facility])[address] [place], [place] [address]Fjywxgl [Mass/Vol]9.5 mg/dLNormal 8.6-10.3UnCity HospitalComment on above:Performed By: #### [id number] ####[facility] ([facility])[address] [place] [address]Dqvpbtuc [Moles/Vol]100 mmol/CAxypvb19-088RvtvoksbpfCity HospitalComment on above:Performed By: #### [id number] ####[facility] ([facility])[address] [place], [place] [address]ZY4 [Moles/Vol]26 mmol/UKlekqf26-52NmzlenyvjcCity HospitalComment on above:Performed By: #### [id number] ####[facility] ([facility])[address] [place], [place] [address]Wlwhssnzht [Mass/Vol]1.92 mg/dLHigh 0.70-1.30UnCity HospitalComment on above:Performed By: #### [id number] ####[facility] ([facility])[address] [place], [place] [address]XYRULMMHQN FILTRATION RATE ML/MIN/1.73 SQ M.SMCQNYEAB76.6 mL/min/1.73m*2Low>60.0UnCity HospitalComment on above:Result Comment: [facility]???s estimated glomerular filtration rate (eGFR) will no [...] group of individuals. Performed By: #### [id number] ####[facility] ([facility])[address] [place], [place] [address]Zwdefno [Mass/Vol]81 mg/aPUokhax98-920UndlsehvnsCity HospitalComment on above:Performed By: #### [id number] ####[facility] ([facility])[address] [place], [place] [address]Pekscgyed [Moles/Vol]5.7 mmol/LHigh 3.5-5.1UnCity HospitalComment on above:Performed By: #### [id number] ####[facility] ([facility])[address] [place] [address]Anzlyz [Moles/Vol]132 mmol/XBvt967-735TzdouhtpjuCity HospitalComment on above:Performed By: #### [id number] ####[facility] ([facility])[address] [place] [address]Rlmx nitrogen [Mass/Vol]26 mg/dLHigh7-25UnCity HospitalComment on above:Performed By: #### [id number] ####[facility] ([facility])[address] [place] [address]CBZR NITROGEN/CREATININE (MASS RATIO) IN SER/PLAS13.5NormalUniversMartins Ferry HospitalComment on above: Performed By: #### [id number] ####[facility] ([facility])[address] [place] [address]KXGpo 71-24-6295Kgykuuqqegw distribution width (RBC) [Ratio]14.5 % Esbwij69.5-15.0UnCity HospitalComment on above:Performed By: #### [id number] #### [facility] ([facility]) [address] [place] [address]TOUQWBIGEBC MEAN CORPUSCULAR HEMOGLOBIN CONCENTRATION (G/DL) BY NVVLURAZB00.1 g/gDGaqglc61.0-35.0UnCity HospitalComment on above:Performed By: #### [id number] #### [facility] ([facility]) [address] [place] [address]Hskupnpxws (Bld) [Volume fraction]36.6 %Low39.0-50.0UnCity HospitalComment on above:Performed By: #### [id number] #### [facility] ([facility]) [address] [place] [address]Mztgalreth (Bld) [Mass/Vol]12.1 g/dLLow13.0-17.0UnCity HospitalComment on above:Performed By: #### [id number] #### [facility] ([facility]) [address] [place] [address]NPWSBCKS PLATELET FRACTION %0.9 %Normal0.8-6.3UnCity HospitalComment on above:Performed By: #### [id number] #### [facility] ([facility]) [address] [place] [address]BYN (RBC) [Entitic mass]30.6 rzUyhuon56.0-33.0UnCity HospitalComment on above:Performed By: #### [id number] #### [facility] ([facility]) [address] [place] [address]LXW (RBC) [Entitic vol]92.4 hBPwdbus82.0-98.0UnCity HospitalComment on above:Performed By: #### [id number] #### [facility] ([facility]) [address] [place] [place], [place] [address]DSKWXYHTX (10*3/UL) IN BLOOD AUTOMATED UMVSE737 10*3/uLLow 150-400UnCity HospitalComment on above:Performed By: #### [id number] #### [facility] ([facility]) [address] [place] [address]HGR (Bld) [#/Vol]3.96 10*6/uLLow4.20-5.70UnCity HospitalComment on above:Performed By: #### [id number] #### [facility] ([facility]) [address] [place] [address]WSV (Bld) [#/Vol]7.48 10*3/uLNormal4.00-10.60UnCity HospitalComment on above:Performed By: #### [id number] #### [facility] ([facility]) [address] [place] [address]Affvb [id number] Kel Castillo 1955 M Date Provider Department Center 05/26/2025 2245-[facility] OPD LAB RESOURCE [facility] OPD [facility] Family History Problem Relation Age of Onset Diabetes Mother Family Status - Relation Status Age at MotherNormalUniversMartins Ferry HospitalMAGNESIUMon 95-12-0597Kkagdwuhv [Mass/Vol]1.8 mg/dLLow1.9-2.7UnCity HospitalComment on above:Performed By: #### [id number] ####[facility] ([facility])[address] [place], [place] [address]BFOPIXIMOFFI, URINE, RANDOMon [phone] DL <= 20 mg/L (U) [Mass/Vol]mg/dLNormalUniWVUMedicine Barnesville HospitalComment on above: Performed By: #### [id number] #### [facility] ([facility]) [address] [place], [place] [address]Ctthtlajlb (U) [Mass/Vol]24.0 mg/rLMlu51-717BccyuklcsxCity HospitalComment on above:Performed By: #### [id number] #### [facility] ([facility]) [address] [place], [place] [address]MCIXPCBTOCSK/CREATININE (MG/G) IN URINENormalUniWVUMedicine Barnesville HospitalComment on above:Result Comment: Unable to calculate Performed By: #### [id number] #### [facility] ([facility]) [address] [place], [place] [address]Oiblre Visiton [id number]-up [id number] Kel Castillo 1955 M Date Provider Department Center 05/26/2025 207-DEBBIE MIRANDA [facility] NEPH [facility] Family History Problem Relation Age of Onset Diabetes Mother Family Status - Relation Status Age at Mother Level of Service:[address]224 [place] OFFICE/OUTPATIENT NEW HIGH MDM 60 MINUTES Reason for Visit and Comments: Chronic Kidney Disease [176] - New patientNormalUniversity ACMC Healthcare SystemPHOSPHORUSon 05-16-4108Jfyvjaesa [Mass/Vol]3.8 mg/dLNormal2.5-5.0 [facility] SystemComment on above:Performed By: #### [id number] ####[facility] ([facility])[address] [place], [place] [address]NMQ, INTACTon 24-42-6513UHXWDFMUTG INTACT (PG/ML) IN SER/PLAS39 pg/rCRsamwb49-26HvqejfjkfhCity HospitalComment on above:Performed By: #### [id number] #### [facility] BLOOD BANK ,URINALYSIS WITH MICROSCOPICon 35-54-7647ZGJGNJHTP, TOTAL PRESENCE IN URINE NegativeNormalNegativeUnCity HospitalComment on above: Performed By: #### [id number] ####[facility] ([facility])[address] [place], [place] [address]Ikvloap (U)ClearNormalClearUnCity HospitalComment on above:Performed By: #### [id number] ####[facility] ([facility])[address] [place], [place] [address]Bkyri (U)Light-YellowNormalColorless, Yellow, Light-YellowUnCity HospitalComment on above: Performed By: #### [id number] ####[facility] ([facility])[address] [place], [place] [address]JPOPZPI (MG/DL) IN URINENormalNormalNormalUniversMartins Ferry HospitalComment on above:Performed By: #### [id number] ####[facility] ([facility])[address], [place] [address]GTVLTCTAWI PRESENCE IN URINENegativeNormalNegativeUnCity HospitalComment on above: Performed By: #### [id number] ####[facility] ([facility])[address] [place], [place] [address]Rlognbb Ql (U)NegativeNormalNegativeUnCity HospitalComment on above:Performed By: #### [id number] ####[facility] ([facility])[address], [place] [address]WDYWMFYMY ESTERASE PRESENCE IN URINE BY TEST STRIPNegativeNormalNegativeUnCity HospitalComment on above:Performed By: #### [id number] ####[facility] ([facility])[address], [place] [address]UUBBYDZ PRESENCE IN URINENegativeNormalNegativeUnCity HospitalComment on above:Performed By: #### [id number] ####[facility] ([facility])[address] [place], [place] [address]zU (U)5.5 [pH]Normal 5.0-8.0UnCity HospitalComment on above:Performed By: #### [id number] ####[facility] ([facility])[address], [place] [address]Kkbwymb (U) [Mass/Vol]NegativeNormalNegativeUnCity HospitalComment on above:Performed By: #### [id number] ####[facility] ([facility])[address], [place] [address]KAQ (#/HPF) IN URINE SEDIMENTNone SeenNormalNone Seen, 0-2 [facility] SystemComment on above:Performed By: #### [id number] ####[facility] ([facility])[address] [place], [place] [address]Hfcyofgv gravity (U) [Rel density]1.687Goo9.010-1.030UnCity HospitalComment on above:Performed By: #### [id number] ####[facility] ([facility])[address] [place], [place] [address]HVUOIJEJ EPITHELIAL CELLS (#/LPF) IN URINE SEDIMENTOccasional NormalNone Seen, Occasional, FewUnCity HospitalComment on above:Performed By: #### [id number] ####[facility] ([facility])[address] [place], [place] [address]QSOWKPUOIGLD (MG/DL) IN URINENormalNormalNormalUniversMartins Ferry HospitalComment on above:Performed By: #### [id number] ####[facility] ([facility])[address] [place], [place] [address]AEV (LEUKOCYTE) (#/HPF) IN URINE SEDIMENTNone SeenNormalNone Seen, 0-2UnCity HospitalComment on above:Performed By: #### [id number] ####[facility] ([facility])[address] [place], [place] [address]TVMGPWO D 25 HYDROXYon 05-26-2025 CALCIDIOL (25 [place] VITAMIN D3) (NG/ML) IN SER/PLAS39.0 ng/qTZpiwtz24.0-80.0 [facility] Health SystemComment on above:Result Comment: >80.0 Toxicity possiblePerformed By: #### [id number] #### [facility] ([facility]) [address] [place], [place] [address]kg 02-72-052967Ngaajxww daughter Nini called, notified of patient abnormal labs including K 5.5, BUN 30 and creatinine 2.24. Patient has appointment with [facility] nephrology tomorrow (05/26). Instructed to increase hydration and reduce potassium dietary. Also, advised if patient develops chest pain, palpitations, SOB, decreased urine output, or altered mental status; he is to seek medical attention immediately. Nini verbalized understanding of plan. Patient will need to replete labs prior to procedure.NormalUnCity HospitalTelephoneon [id number] Kel Castillo 1955 M Date Provider Department Center 05/25/2025 04179-OFBBYSPENCER GILMAN [facility] PAC IN Medical C Family History Problem Relation Age of Onset Diabetes Mother Family Status - Relation Status Age at MotherNormalUniWVUMedicine [facility] 48-97-2706RKPNYDYWH PARTIAL THROMBOPLASTIN TIME IN PPP BY COAGULATION ASSAY27.5 SecondsNormal 25.0-35.0UnCity HospitalComment on above:Result Comment: Clinical significance of the APTT is questionable in the presence of heparin. Performed By: #### [id number] ####[facility] ([facility])[address] [place], [place] [address]TBPSN METABOLIC PANELon 53-13-9209Qjglp gap [Moles/Vol]12 mmol/LNormal7-20UnCity HospitalComment on above:Performed By: #### [id number] ####[facility] ([facility])[address] [place] [address] Calcium [Mass/Vol]8.8 mg/dLNormal8.6-10.3UnCity Hospital Comment on above:Performed By: #### [id number] ####[facility] ([facility])[address] [place], [place] [address]Pgzgguix [Moles/Vol]105 mmol/BQpjihc22-061 [facility] SystemComment on above:Performed By: #### [id number] ####[facility] ([facility])[address] [place], [place] [address]HM9 [Moles/Vol] 25 mmol/FIxbaxy83-28QymmepimehCity HospitalComment on above: Performed By: #### [id number] ####[facility] ([facility])[address] [place], [place] [address]Kshhlnnjdr [Mass/Vol]2.24 mg/dLHigh0.70-1.30UnCity HospitalComment on above:Performed By: #### [id number] ####[facility] ([facility])[address] [place], [place] [address]HZMQAMASDD FILTRATION RATE ML/MIN/1.73 SQ M.VEJYELQBQ18.4 mL/min/1.73m*2Low>60.0UnCity Hospital Comment on above:Result Comment: [facility]???s estimated glomerular filtration rate (eGFR) will no [...] anyone group of individuals.Performed By: #### [id number] ####[facility] ([facility])[address] [place] [address]Nceufey [Mass/Vol]81 mg/hAWqencd85-911VuxxqqziryCity HospitalComment on above:Performed By: #### [id number] ####[facility] ([facility])[address] [place] [address]Erqcgehvd [Moles/Vol]5.5 mmol/LHigh3.5-5.1UnCity HospitalComment on above:Performed By: #### [id number] ####[facility] ([facility])[address] [place] [address]Sogsdn [Moles/Vol]136 mmol/L Bttzfk787-368VeexltnrqfCity HospitalComment on above:Performed By: #### [id number] ####[facility] ([facility])[address] [place], [place] [address]Dwrw nitrogen [Mass/Vol]30 mg/dLHigh7-25UnCity HospitalComment on above:Performed By: #### [id number] ####[facility] ([facility])[address] [place] [address]IWMX NITROGEN/CREATININE (MASS RATIO) IN SER/PLAS13.4Normal [facility] SystemComment on above:Performed By: #### [id number] ####[facility] ([facility])[address] [place] [address]ZFNcu 05-24-2025 Erythrocyte distribution width (RBC) [Ratio]14.5 %Rrndqe43.5-15.0UnCity HospitalComment on above:Performed By: #### [id number] ####[facility] ([facility])[address] [place] [address]CCMTPCVDXLJ MEAN CORPUSCULAR HEMOGLOBIN CONCENTRATION (G/DL) BY JEXYEJSSH75.5 g/dLLow32.0-35.0 [facility] SystemComment on above:Performed By: #### [id number] ####[facility] ([facility])[address] [place] [address]Qcbhxhpeqk (Bld) [Volume fraction]36.8 %Low39.0-50.0UnCity HospitalComment on above:Performed By: #### [id number] ####[facility] ([facility])[address] [place] [address]Teqvbdxrto (Bld) [Mass/Vol]11.6 g/dLLow13.0-17.0UnCity HospitalComment on above:Performed By: #### [id number] ####[facility] ([facility])[address] [place] [address]CCA (RBC) [Entitic mass] 30.3 spLtkktz70.0-33.0UnCity HospitalComment on above: Performed By: #### [id number] ####[facility] ([facility])[address] [place] [address]DBX (RBC) [Entitic vol]96.1 iWAifvow17.0-98.0UnCity HospitalComment on above:Performed By: #### [id number] ####[facility] ([facility])[address] [place] [address]ZXYUHDBJW (10*3/UL) IN BLOOD AUTOMATED VOZOZ350 10*3/lRYln603-508KncdovonssCity Hospital Comment on above:Performed By: #### [id number] ####[facility] ([facility])[address] [place] [address]MTU (Bld) [#/Vol]3.83 10*6/uLLow4.20-5.70UnCity HospitalComment on above:Performed By: #### [id number] ####[facility] ([facility])[address] [place] [address]LTT (Bld) [#/Vol]5.58 10*3/uLNormal4.00-10.60UnCity HospitalComment on above: Performed By: #### [id number] ####[facility] [address] [place], [place] [address]JMxp 94-70-9890TCEnz-Anesthesia Clinic Service Date: 05/24/25 Chief Complaint: PAC [...] well as calcified plaque of the right PROFESSIONAL NURSING ASSISTANT, infrarenal aorta, bilateral iliacs. Initial plans for an noninvasive abdominal aortography and bilateral lower extremity angiogram was made due to progressive lower extremity pain/symptoms. However, the procedure was subsequently canceled due to patients elevated serum creatinine level of 2.18. Patient's daughter states, patient follows with Service Desk Team Lead Dr. Toscano at [facility]; however does have appointment with [facility] nephrology on 05/1525 for a second [...] Cardiac cath on 05/11/2025 revealed severe three-vessel anvik CAD. There are 2 out of 3 [...] Last Dose Status albuterol 90 mcg/actuation inhaler [id number] Yes INHALE 1 PUFF BY MOUTH EVERY 4 HOURS NEEDED Ele ProviderMD 05/24/2025 Active amLODIPine (Norvasc) 5 mg tablet [id number] Yes Take 1 tablet by mouth two times daily. Historical ProviderMD 05/24/2025 Active aspirin 81 mg EC tablet [id number] Yes Take 1 tablet by mouth in the morning. Historical ProviderMD 05/24/2025 Active atorvastatin (Lipitor) 80 mg tablet [id number] Yes Take 80 mg by mouth at bedtime. Ele ProviderMD 05/24/2025 Active buPROPion XL (Wellbutrin XL) 300 mg 24 hr tablet [id number] Yes Use 1 tablet in the mouth or throat in the morning. Ele ProviderMD 05/24/2025 Active busPIRone (Buspar) 15 mg tablet [id number] Yes Take 1 tablet by mouth in the morning and at bedtime. Ele ProviderMD 05/24/2025 Active clopidogrel (Plavix) 75 mg tablet [id number] Yes Take 75 mg by mouth in the morning. Ele ProviderMD 05/24/2025 Active famotidine (Pepcid) 20 mg tablet [id number] Yes Take 20 mg by mouth twice a day. Ele ProviderMD 05/24/2025 Active fenofibrate micronized (Antara) 43 mg capsule [id number] Yes Take 1 capsule by mouth in the morning and at bedtime. Historical ProviderMD 05/24/2025 Active ferrous sulfate 325 (65 Fe) MG tablet [id number] No Take 325 mg by mouth in the morning. Patient not taking: Reported on 05/24/2025 Historical Provider, Not Taking Active fbrnkkrzlrm-rwipujczp-qxazwwvk (Trelegy Ellipta) 100-62.5-25 mcg blister with device [id number] Yes Inhale 1 puff in the morning. Historical Provider, 05/24/2025 Active lisinopril 10 mg tablet [id number] Yes Take 10 mg by mouth in the morning. Historical Provider, 05/24/2025 Active metoprolol tartrate (Lopressor) 50 mg tablet [id number] Yes Take 50 mg by mouth two times daily. Historical Provider, 05/24/2025 Active nitroglycerin (Nitrostat) 0.4 mg SL tablet [id number] Yes Historica (more content not included)...NormalUnCity HospitalLabon 22-77-7012Vtu [id number] Kel Castillo 1955 M Date Provider Department Center 05/24/2025 2244-[facility] MP LAB RESOURCE MP DRAW Medical Pavi Family History Problem Relation Age of Onset Diabetes Mother Family Status - Relation Status Age at MotherNormalUniversMartins Ferry HospitalMRSA/MSSA DNA NASALon 05-24-2025 MRSA DNANegativeNormalNegativeUnCity HospitalComment on above:Order Comment: Testing methodology is [...] does not preclude nasal colonization.Performed By: #### [id number] ####[facility] ([place])[address] [place], [place] [address]WKRR DNANegativeNormalNegativeUnCity HospitalComment on above:Order Comment: Testing methodology is [...] does not preclude nasal colonization.Performed By: #### [id number] ####[facility] ([place])[address] [place], [place] [address]VMAPXSJ-QWYun 47-65-8748ZOT IN PPP BY COAGULATION ASSAY1.19Jvuemm5.90-1.10 [facility] SystemComment on above:Result Comment: ACCCP RECOMMENDED INR FOR [...] OPTIMAL THERAPEUTIC RANGE. CHEST 1995;108:231S-246S.Performed By: #### [id number] #### [facility] ([place]) [address] [place], [place] [address]JQPTVGAXBHP TIME (PT) IN PPP BY COAGULATION ASSAY13.3 Seconds Fcozmo41.3-14.8UnCity HospitalComment on above:Performed By: #### [id number] #### [facility] ([place]) [address] [place], [place] [address]Jjy-Tmuazgraa Testingon 90-14-2421Vhn-Admission [id number] Kel Castillo 1955 Date Provider Department Felt 05/24/202556274-NSL-FCZATKHHKU CLINI*[facility] PAC IN Medical C Family History Problem Relation Age of Onset Diabetes Mother Family Status - Relation Status Age at MotherNormalUniversity of Baylor Scott & White Medical Center – IrvingTYPE AND SCREENon 37-38-6331YH SCREENNegativeNormalUniversMartins Ferry HospitalComment on above: Performed By: #### [id number] #### [facility] BLOOD BANK ,ABO group Nom (Bld)BNormalAdena Health SystemComment on above: Performed By: #### [id number] #### [facility] BLOOD BANK ,RH TYPE IN BLOODPositiveNormalUniversMartins Ferry HospitalComment on above:Performed By: #### [id number] #### [facility] BLOOD BANK ,Telephoneon [id number] Kel Castillo 1955 M Date Provider Department Center 05/17/2025 DEBBIE RICH [facility] NEPH [facility] Family History Problem Relation Age of Onset Diabetes Mother Family Status - Relation Status Age at MotherNormalUniversity of Baylor Scott & White Medical Center – IrvingAbstracton 01-65-0456Oeqttnwz [id number] Kel Castillo 1955 M Date Provider Department Center 05/14/2025 ITALO ROMERO [facility] AUTH [facility] C Family History Problem Relation Age of Onset Diabetes Mother Family Status - Relation Status Age at MotherNormalUniversity of Baylor Scott & White Medical Center – IrvingANESon 76-34-0305RAAF Attestation signed by Sarah Tolliver MD at 05/11/2025 8:18 AM Sarah Tolliver MD, MPH, FACC, [facility], FS Interventional Cardiology Pager Email: [email or web address] Patient: Kel Castillo Procedure Information Date/Time: 05/11/25 1030 Procedure: Coronary angiography (Left) - call daughter glenda [phone] with instructions Location: [facility] TRACTOR DRIVER TEAMSTER 3 / [facility] VASCULAR [facility] (Cath) Providers: Sarah Tolliver MD [...] attending and fellow. Additional Equipment RequestsNormalUniversity of Baylor Scott & White Medical Center – IrvingHPon 42-71-0983EY Attestation signed by Sarah Tolliver MD at [...] me. Additional Comments: Sarah Tolliver MD, MPH, [facility], [facility], [facility] Interventional Cardiology Pager Email: [email or web address] History Of Present Illness Kel Castillo [...] Resource Strain: Low Risk (02/28/2025) Received from [facility] Overall Financial Resource Strain (CARDIA) Difficulty of Paying Living Expenses: Not very hard Food Insecurity: No Food Insecurity (03/10/2025) [facility] Hunger Screening Within the past 12 months we worried whether our food would run out before we got money to buy more.: Never True Within the past 12 months the food we bought just didn't last and we didn't have money to get more.: Never True Transportation Needs: No Transportation Needs (02/28/2025) Received from [facility] PRAPARE - Transportation Lack of Transportation (Medical): No Lack of Transportation (Non-Medical): No Physical Activity: Inactive (02/28/2025) Received from [facility] Exercise Vital Sign Days of Exercise per Week: 0 days Minutes of Exercise per Session: 0 min Stress: Stress Concern Present (02/28/2025) Received from [facility] [place] of Occupational Health - Occupational Stress Questionnaire Feeling of Stress : To some extent Social Connections: Socially Isolated (02/28/2025) Received from [facility] Social Connection and Isolation Panel [NHANES] Frequency of Communication with Friends and Family: More than three times a week Frequency of Social Gatherings with Friends and Family: Once a week Attends Shinto Services: Never Active Member of Clubs or Organizations: No Attends Club or Organization Meetings: Never Marital Status: Intimate Partner Violence: Not At Risk (02/28/2025) Received from [facility] Humiliation, Afraid, Rape, and Kick questionnaire Fear of Current or Ex-Partner: No Emotionally Abused: No Physically Abused: No Sexually Abused: No Housing Stability: Low Risk (02/28/2025) Received from [facility] Housing Stability Vital Sign Unable to Pay [...] Physical Exam Vitals reviewed. (more content not included)...[facility] HospitalNURSNOTEon 50-56-6861QDSSTRBVMS educated pt on d/c instructions. This included: [...] wheeled off of unit with all of belongings.[facility] HospitalCNOVon 54-07-6780FEBUVkykkn Visit (NEIND4) SAMIR CASTILLO ([id number]) 1955 M Date Time Provider Department 04/29/25 [...] Eun Trent DO 04/29/2025 4:05 PM Signed [facility] General Neurology Follow up/ Established patient visit Individuals who were included in, or assisted with the encounter were: Samir Castillo Eun Black DO Chief Complaint/Issues: Samir Castillo is a 70 year old male seen in the [facility] for General Neurology for: Memory loss [...] Medications Medicati (more content not included)...NormalMercy Health Clermont HospitalvelandOrders Onlyon 64-09-3556Uzcktf [id number] Kel Castillo 1955 Date Provider Department Center 04/29/2025 35687-TESESBCFTVFINN [facility]TERSON [facility] Family History Problem Relation Age of Onset Diabetes Mother Family Status - Relation Status Age at [facility] RexNormalUniWVUMedicine [facility] Hospital36on [id number] asked Jacki in the lab if this could be done with Dr. Tolliver prior to his vascular surgery scheduled for 06/07/2025. He has no openings as of right now. Dr. Tolliver, would you be ok with Dr. Silvestre doing the cath? (Not even sure if that would be ok with the patient and his daughter but I thought I'd start with you.)NormalAdena Health System36Please let the patient and his daughter know [...] she is not happy with [facility] Nephrology and would like a recommendation. I did advise her I would send a referral to [facility] Nephrology and she stated that would [...] father need the heart cath prior. Please advise.[facility] HospitalTelephoneon [id number] JoseKel 1955 M Date Provider Department Center 2025 47902-MXKIMJTWZDFINN PATTERSON SAMI Rasmussen Family History Problem Relation Age of Onset Diabetes Mother Family Status - Relation Status [facility] at [facility] HospitalOr[facility] Onlyon 82-43-4147Cvamvl [id number] Demetri Castilloardo 1955 M Date Provider Department Center 04/27/2025 [id number], HISTORICAL [facility] Family History Problem Relation Age of Onset Diabetes Mother Family Status - Relation Status Age at [facility]36on 62-66-850481Nlozmrmbd stress test result from 04/20/2025: Sarah Tolliver [...] He has an apt today at [facility] with vascular surgery. Order for limited echo faxed to [facility] HospitalOffice Visiton 04-11-7539Qodazj-up [id number] Kel Castillo 1955 M Date Provider Department Center 04/21/2025 Twila-ITALO LYLES HVCVASENDO [facility] Family History Problem Relation Age of Onset Diabetes Mother Family Status - Relation Status Age at Mother Level of Service:[address] [place] OFFICE/OUTPATIENT NEW MODERATE MDM 45 MINUTES Reason for Visit and Comments: Consult [484] - PAD, leg painNormalUniversity of Baylor Scott & White Medical Center – IrvingOrders Onlyon 93-95-2411Wbgefn [id number] Kel Castillo 1955 M Date Provider Department Center 04/20/2025 99573-VSKWTIWTGUFINN PATTERSON CARD [facility] Family History Problem Relation Age of Onset Diabetes Mother Family Status - Relation Status Age at MotherNormalUniversity ACMC [facility] System36on 51-83-055803Rs calling about bmp results, they are in media please adviseNormalUniversity ACMC Healthcare SystemANESon 66-99-7791WCUM Attestation signed by Sarah Tolliver MD at 04/08/2025 9:29 AM Sarah Tolliver MD, MPH, [facility], [facility], [facility] Interventional Cardiology Pager Email: [email or web address] Patient: Kel Castillo Procedure Information Date/Time: 04/08/2530 Procedures: Aortogram - PC APPROVED AO/ RUNOFFS Lower extremity angiogram (Bilateral) Location: [facility] TRACTOR DRIVER TEAMSTER 3 / [facility] VASCULAR LAB (Cath) Providers: Sarah Tolliver MD [...] products. Plan discussed with attending. Additional Equipment RequestsNormalUniversMartins Ferry HospitalBASIC METABOLIC PANELon 18-95-2569Vydnu gap [Moles/Vol]10 mmol/LNormal7-20UnCity HospitalComment on above:Performed By: #### [id number] ####[facility] (AKER)[address] [place], [place] [address]Arooyqc [Mass/Vol]9.3 mg/dLNormal8.6-10.3UnCity HospitalComment on above:Performed By: #### [id number] ####[facility] (BEAKER)[address] [place] [address] Chloride [Moles/Vol]106 mmol/SCteujr52-261GznwjueifuCity Hospital Comment on above:Performed By: #### [id number] ####[facility] (BEAKER)[address] [place], [place] [address]VA1 [Moles/Vol]28 mmol/VCzuwve18-23JeqvzgrsxmCity HospitalComment on above:Performed By: #### [id number] ####[facility] ([facility]ER)[address] [place], [place] [address]Uvfhmnlkhp [Mass/Vol]2.18 mg/dL High0.70-1.30UnCity HospitalComment on above:Performed By: #### [id number] ####[facility] (AKER)[address] [place] [address] GLOMERULAR FILTRATION RATE ML/MIN/1.73 SQ M.MFFLNHIXB26.6 mL/min/1.73m*2Low>60.0 [facility] SystemComment on above:Result Comment: [facility]???s estimated glomerular filtration rate (eG FR) will [...] group of individuals. Performed By: #### [id number] ####[facility] ([facility])[address] [place], [place] [address]Vnxjdhs [Mass/Vol]102 mg/nCJnds36-220WajffwcqlmCity HospitalComment on above:Performed By: #### [id number] ####[facility] ([facility])[address] [place], [place] [address]Xoqgmudsx [Moles/Vol]4.4 mmol/LNormal 3.5-5.1UnCity HospitalComment on above:Performed By: #### [id number] ####[facility] ([facility])[address] [place], [place] [address]Xsvkst [Moles/Vol]140 mmol/ZOpcnhp088-887SdzbnuilqtCity HospitalComment on above:Performed By: #### [id number] ####[facility] ([facility])[address] [place], [place] [address]Dfgx nitrogen [Mass/Vol]34 mg/dLHigh7-25UnCity HospitalComment on above:Performed By: #### [id number] ####[facility] ([facility])[address] [place], [place] [address]GAKQ NITROGEN/CREATININE (MASS RATIO) IN SER/PLAS15.6NormalUniWVUMedicine Barnesville HospitalComment on above: Performed By: #### [id number] ####[facility] ([facility])[address] [place], [place] [address]HLLgk 33-19-1792Iievrxgubps distribution width (RBC) [Ratio]14.6 % Crpysr08.5-15.0UnCity HospitalComment on above:Performed By: #### [id number] ####[facility] (BEAKER)[address] [place] [address] ERYTHROCYTE MEAN CORPUSCULAR HEMOGLOBIN CONCENTRATION (G/DL) BY QQFICTSWI96.1 g/gKIjxomg50.0-35.0UnCity HospitalComment on above:Performed By: #### [id number] ####[facility] (BE[facility])[address] [place], [place] [address]Mrnwxedjtj (Bld) [Volume fraction]34.1 %Low39.0-50.0UnCity HospitalComment on above:Performed By: #### [id number] ####[facility] ([facility])[address] [place], [place] [address]Cundofyzyq (Bld) [Mass/Vol]11.3 g/dL Low13.0-17.0UnCity HospitalComment on above:Performed By: #### [id number] ####[facility] (BE[facility])[address] [place], [place] [address]TJC (RBC) [Entitic mass]30.6 soDfflxn68.0-33.0UnCity Hospital Comment on above:Performed By: #### [id number] ####[facility] (BEAKER)[address] [place], [place] [address]ORE (RBC) [Entitic vol]92.4 sSTxzkyp54.0-98.0 [facility] Health SystemComment on above:Performed By: #### [id number] ####[facility] ([facility])[address] [place], [place] [address]JBLDMJYRT (10*3/UL) IN BLOOD AUTOMATED QRCYB508 10*3/vJNtnguv868-792LzgdkidxdlCity HospitalComment on above:Performed By: #### [id number] ####[facility] ([facility])[address] [place], [place] [address]PJN (Bld) [#/Vol]3.69 10*6/uLLow 4.20-5.70UnCity HospitalComment on above:Performed By: #### USQ555 ####[facility] ([place])[address] [place] [address]PLD (Bld) [#/Vol]6.07 10*3/uLNormal4.00-10.60UnCity HospitalComment on above:Performed By: #### [id number] ####[facility] ([place])[address] [place] [address]JYlm 58-10-6380XT Attestation signed by Sarah Tolliver MD at [...] his baseline creatinine. Sarah Tolliver MD, MPH, [facility], [facility], [facility] Interventional Cardiology Pager Email: [email or web address] History Of Present Illness Kel Castillo is a 69 y.o. male presenting initally in clinic with leg pain. He has an extensive PMH of CAD s/p 3V CABG in 2009, CKD 4, PAD, HTN, HLD, COPD. His last cath was in 2019 which showed severe anvik CAD, patent SPRAGUE-LAD and SVG-OM but occluded radial-PDA. 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 His last TTE in 02/19/25 notes [...] aortogram w/ bilateral angiography Evgeny Arceo MD Direct Chill Casting Operator, PGY-4 [facility] 04/08/25 9:15 AM [1] Medications Prior to [...] by mouth in the morning. 04/08/2025 Morning djbpbxinrdy-hvpajjhir-pkhexwsn (Huy (more content not included)...Normal [facility] Health SystemNURSNOTEon 04-86-7229MGLTIUPRKO educated pt on d/c instructions. This included: [...] wheeled off of unit with all of belongings.NormalAdena Health SystemOrders Onlyon 40-72-6565Eocfpt [id number] Kel Castillo 1955 M Date Provider Department Center 04/08/2025 Est[facility] Heart[facility]AS Family History Problem Relation Age of Onset Diabetes Mother Family Status - Relation Status Age at MotherNormalUniversMartins Ferry HospitalCNPNon 59-76-7483HKZUYdkzorzqc (AGCARDPOB) CASTILLOSAMIR FISCHER ([id number]) 1955 M Date Time Provider Department 04/05/25 BILL GANT AGCARDPOB During your visit today, we recorded the following information about you: Mariana Wheeler LPN 04/05/2025 4:03 PM Signed Chest x-ray results received from [facility]. Scanned in for review. Mariana Wheeler LPN Allergies As of Date: 04/05/2025 (No Known Allergies) Date Reviewed: 04/01/2025 Reviewed by: Neha Orozco MA - Fully Assessed Reason for Visit: [place] - Other [3602] Prescriptions as of 04/05/2025 [...] TABLETS BY MOUTH EVERY DAY - omega 4-mup-dlr-fish oil (FISH OIL) 100-160-1,000 mg cap Take by mouth. Problem List As Of Date 04/05/2025 Noted Resolved Dyspnea and respiratory abnormalities [R06.00, *02/09/2022 Recurrent major depression in partial remission*04/12/2022 MCI (mild cognitive impairment) [G31.84] 04/12/2022 Encounter Status:Closed by MARIANA WHEELER on 04/05/25[facility]XR CHEST 2 VWSon 23-77-1820BK CHEST 2 VWSXR CHEST 2 VWS HISTORY: Other emphysema (CMS-HCC) COMPARISON: 02/26/2024 TECHNIQUE: PA and lateral views of the chest. FINDINGS: Unchanged cardiopericardial silhouette. Streaky opacities right lower lung potentially atelectasis or scarring. Volume loss right lung. No dense consolidation. No pneumothorax. No pleural effusion. IMPRESSION: Chronic lung disease without definite acute pulmonary process. Finalized by Roc Valverde MD on 04/05/2025 2:41 [facility] CERVICAL SPINE WO CONTon 83-57-0252ZL CERVICAL SPINE WO CONTMR CERVICAL SPINE WO [...] by Kana Swain MD on 04/03/2025 12:02 [facility] NT-PROBNP SERPL-MCNCon 53-75-7668Fpphbqlhtkq peptide B (Bld) [Mass/Vol]4813 pg/mLHighNINF - 125 pg/mLNOMS HealthcareSpecimen Type: BLOOD SPECIMEN Ordering Facility: [facility] Address: [address], [place] [id number] Original Ordering Provider: BILL Morrison 93-59-0357NFZTLuzxge Visit (AGCARDPOB) SAMIR CASTILLO ([id number]) 1955 M Date Time Provider Department 04/01/25 [...] a new patient visit. He lives in [place] and gets most of his care in [place] at [facility] but just wants a second opinion on [...] oxygen. He has not seen a senior net web developer recently and has not had any pulmonary [...] family for transportation. 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 He quit smoking 40 [...] 1/2 TABLETS BY MOUTH EVERY DAY omega 1-drt-auz-fish oil (FISH OIL) 100-160-1,000 mg cap Take [...] Date: Wt: 10/12/2024 169 (more content not included)...NormalHoulton Regional Hospital ECG B/O W INTERP (MED OFFICE)on 86-23-9463Fevmws sinus rhythm nonspecific ST-T changes septal Q wavesOhioHealth Arthur G.H. Bing, MD, Cancer CenterNT PRO BNPon 04-01-2025 Natriuretic peptide.B prohormone N-Terminal [Mass/Vol]4813 pg/mLHighNINF - 125 pg/mLCleveland ClinicNT-proBNP SerPl-mCncon 66-58-0205Mczzusgmenu peptide.B prohormone N-Terminal [Mass/Vol]4813 pg/mLHigh<125[facility] Comment on above:Order Comment: Specimen Type: BLOOD SPECIMEN Ordering Facility: [facility] Address: [address] [place] [address] [place], [place] [address]Performed By: #### [id number] #### [facility] CLIA [id number] [address] Panel Informationon 04-01-2025 Interpretation and review of laboratory resultsAbCritical access hospital36on 12-47-992417Vftbf with daughter and informed her I would put orders in and [facility] would be contacting her to set this up. I advised her her father would need lab orders about 1 week prior to scheduled procedure. She verbalized understanding. Orders entered and faxed to [facility]36Spoke with his daughter Nini. She says he's having extreme leg pain . You aren't here in [place] again for another 4 weeks. Daughter would like to proceed with LE angiogram if that's ok with you?[place] [address]I received a call from radiology at [facility]. This patient is here now for CTA abdomen/pelvis. Due to elevated s. creatinine (2.07, GFR 32), the test was unable to be performed. Would you like him to try again? How long should he wait to get it rescheduled? Thanks.[facility] HospitalOrders Onlyon 96-05-8440Melgnv [id number] Kel Castillo 1955 M Date Provider Department Center 03/11/2025 [facility]AN [facility] Family History Problem Relation Age of Onset Diabetes Mother Family Status - Relation Status Age at MotherNormalUniversNewark Hospital CREATININEon 03-11-2025 Creatinine [Mass/Vol]2.07 mg/dLHigh0.70 - 1.30 mg/dLNONM HealthcareGFR/1.73 sq M.predicted CKD-EPI (S/P/Bld) [Vol rate/Area]39Low>=60 mL/min/1.73m 2NOMS HealthcareInterpretation and review of laboratory resultsAbMyMichigan Medical Center EGFR-NON AF VPBOGBUA84Eaw>=60 mL/min/1.73m 2NOMS HealthcareCLINISYNCNOMS Hoeiqkfdxb58ls 17-16-413863Ban telephone note on 02/24/[address] Tolliver. [place] [address]on 96-81-468631Psasmjvho HUBER's performed on 02/18/2025: MD Ian Juarez MA If the patient is having leg pain, please order an abdominal CTA with run offs (bilateral lower extremity angiography) Thanks. Spoke with patient's daughter and she states he's having lots of leg pain. Told her Dr. Tolliver would like further testing and she agreed. Order faxed to [facility]. Daughter verbalized understanding.[facility]36 Spoke to daughter advised her of Dr. Levi ECHO findings. Daughter verbalized understanding. Daughter is requesting results of HUBER'S advised daughter as soon as Reviews them we will call her with the results. Daughter states she is very concerned with what she read on [employer] about HUBER test resultsNormalUniOhio State Health SystemEGMENTAL BLOOD PRESSUREon 59-33-9030ChlSouth [place] [address] Cardiology Report Signed Patient: KEL CASTILLO Jr. MR#: [id number] : 1955 Acct:[id number] Age/Sex: 69 / M ADM Date: 02/18/25 Loc: CARD Attending Dr: Sarah Tolliver M.D. Ordering Physician: Sarah Tolliver M.D. Date of Service: 02/18/25 Procedure(s): CA segmental UE or LE LEENA Accession Number(s): [id number] cc: Noa Watson HEAD SILVERMAN; Sarah Tolliver M.D. [facility] Test Date: 2025-02-18 Pat Name: KEL CASTILLO Department: Room: - Gender: Male Molder Sweep: : 1955 Requested By: SARAH TOLLIVER Order Number: [id number] Reading MD: SARAH TOLLIVER Interpretive Statements Bilateral, moderately reduced ankle-brachial indices. 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 Recommend further imaging with CT or invasive angiography. Electronically Signed On 02-23-2025 12:52:03 EDT by SARAH TOLLIVER Dictated By: Sarah Tolliver M.D. Signed By: 02/23/25 1252 02/23/25 1252 DD/ 0841 TD/TT: Pit Supervisor:Daniel Ramirez MD - 02/23/2025 [place] [address] Cardiology Report Signed Patient: KEL CASTILLO Jr. MR#: [id number] : 1955 Acct:[id number] Age/Sex: 69 / M ADM Date: 02/18/25 Loc: CARD Attending Dr: Sarah Tolliver M.D. Ordering Physician: Sarah Tolliver M.D. Date of Service: 02/18/25 Procedure(s): CA segmental UE or LE LEENA Accession Number(s): [id number] cc: Noa Watson HEAD SILVERMAN; Sarah Tolliver M.D. [facility] Test Date: 2025-02-18 Pat Name: KEL CASTILLO Department: Room: - Gender: Male Molder Sweep: : 1955 Requested By: SARAH TOLLIVER Order Number: [id number] Reading MD: SARAH TOLLIVER Interpretive Statements Bilateral, moderately reduced ankle-brachial indices. 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 Recommend further imaging with CT or invasive angiography. Electronically Signed On 02-23-2025 12:52:03 EDT by SARAH TOLLIVER Dictated By: Sarah Tolliver M.D. Signed By: 02/23/25 1252 02/23/25 1252 DD/ 0841 TD/TT: Pit Supervisor: EDWIN [facility]S Hospital For RehabilitationSEENTAL BLOOD PRESSUREOrdered By: Radiologist Radiology on 94-18-0889MWFS [employer] Work Phone: [phone] 20-26-165618Piopxmy's daughter called asking about result of echo. It was just scanned into you about 10 minutes ago. She saw the result from [facility] portal Saturday night and was concerned when she saw the word severe in the result. Daughter told me she called the [facility] physician automation test developer Saturday night. I told her it was fine to wait until you reviewed result and I would call her. Thanks.[facility] HospitalTelephoneon [id number] Kel Castillo 1955 M Date Provider Department Center 02/22/2025 RubenIAN OLIVA [facility] Family History Problem Relation Age of Onset Diabetes Mother Family Status - Relation Status Age at MotherNormalUniWVUMedicine Barnesville HospitalCA ECHO DOPPLER COMPLETEon 90-42-8704JhgSouth [place] [address] Cardiology Report Signed Patient: KEL CASTILLO Jr. MR#: [id number] : 1955 Acct:[id number] Age/Sex: 69 / M ADM Date: 02/18/25 Loc: CARD Attending Dr: Sarah Tolliver M.D. Ordering Physician: Sarah Tolliver M.D. Date of Service: 02/18/25 Procedure(s): CA echo doppler complete Accession Number(s): [id number] cc: Noa Watson NP; Sarah Tolliver M.D. Patient Name: KEL CASTILLO MR#: [id number] : 1955 Exam Date: 02/18/2025 Ordering Doctor: [...] Area (VTI): 2.12 cm2, 2.12 cm2 Deceleration Huntington: Pressure Half-Time: Peak Velocity(Antegrade Flow): 1.47 m/s Peak Gradient(Antegrade Flow): 8.67 mm[Hg] Mean Velocity(Antegrade Flow): 0.98 m/s Mean Gradient(Antegrade Flow): 4.49 mm[Hg] Velocity Time Integral: 37.64 cm Tricuspid Valve Peak Velocity (Regurgitant Flow): 2.39 m/s, 3.11 m/s, 3.28 m/s Peak Velocity: Pulmonic Valve Mean Gradient: Mean Velocity: (more content not included)...TBHRadiology, Radiologist, MD - 02/19/2025 [place] [address] Cardiology Report Signed Patient: KEL CASTILLO Jr. MR#: [id number] : 1955 Acct:[id number] Age/Sex: 69 / M ADM Date: 02/18/25 Loc: CARD Attending Dr: Sarah Tolliver M.D. Ordering Physician: Sarah Tolliver M.D. Date of Service: 02/18/25 Procedure(s): CA echo doppler complete Accession Number(s): [id number] cc: Noa Watson HEAD SILVERMAN; Sarah Tolliver M.D. Patient Name: KEL CASTILLO MR#: [id number] : 1955 Exam Date: 02/18/2025 Ordering Doctor: [...] Area (VTI): 2.12 cm2, 2.12 cm2 Deceleration Huntington: Pressure Half-Time: Peak Velocity(Antegrade Flow): 1.47 m/s [...] M.D. Signed By: 02/19/251822 DD/ 21 TD/TT: Pit Supervisor: [facility]HealthRadiology Study observation (narrative)[facility] ECHO DOPPLER COMPLETEOrdered By: Radiologist Radiology on 81-19-9474SBKM mydeco Work Phone: SEGMENTAL BLOOD PRESSUREon 71-58-1516Rfuoizdaz Study observation (narrative)CoxHealthCBC (NO DIFF)on 34-64-5556Ukuefalpopp distribution width (RBC) [Ratio]14.9 %Ebiqjj24.5-15[facility] Comment on above:Performed By: #### UA #### [facility] ([id number]) [address], [address] [place], [place] [address]Hjomgweiem (Bld) [Volume fraction]34.1 %Pza72-59SsmSjmkcxHolzer Medical Center – JacksonComment on above:Performed By: #### UA #### [facility] ([id number]) [address], [address] [place], [place] [address]Zeonwwiljf (Bld) [Mass/Vol]11.5 g/kEAiv06-09KupKtplwrHereford Regional Medical CenterComment on above:Performed By: #### UA #### [facility] ([id number]) [address], [address] [place], [place] [address]VZO (RBC) [Entitic mass]30.6 sjYtsrtm30-48NicQkaeniHolzer Medical Center – JacksonComment on above:Performed By: #### UA #### [facility] ([id number]) [address], [address] [place] [address]UOGR (RBC) [Mass/Vol]33.6 g/wYZwqshx95-76BysJauezqHereford Regional Medical CenterComment on above:Performed By: #### UA #### [facility] ([id number]) [address], [address] [place], [place] [address]VAN (RBC) [Entitic vol]91 wWEbgpvi07-112XifLkwwheHolzer Medical Center – JacksonComment on above:Performed By: #### UA #### [facility] ([id number]) [address], [address] [place], [place] [address]Sraabvbi mean volume (Bld) [Entitic vol]7.5 fLNormal7-12 [facility] – JacksonComment on above:Performed By: #### UA #### [facility] ([id number]) [address], [address] [place], [place] [address]Thyjfgulb (Bld) [#/Vol]122 10*3/tQJxa302-837CurPhsomgHereford Regional Medical CenterComment on above:Performed By: #### UA #### [facility] ([id number]) [address], [address] [place], [place] [address]ZYW COUNT3.75 X10E12/LLow4.1-5.7[facility] Comment on above:Performed By: #### UA #### [facility] ([id number]) [address], [address] [place], [place] [address]WUL (Bld) [#/Vol]5.5 10*3/uLNormal4-11[facility] Comment on above:Performed By: #### UA #### [facility] ([id number]) [address] [facility] [place], [place] [address]TMWQTYEKNtg 57-85-9383Crhvmtlbe [Mass/Vol]2.0 mg/dLNormal1.8-2.6 [facility] – JacksonComment on above:Performed By: #### UA #### [facility] ([id number]) [address] [facility], [address] [place], [place] [address]TJAZBQYXNOLA / CREATININE URINE RATIOon 07-37-6300Gusnskd DL <= 20 mg/L (U) [Mass/Vol]0.9 mg/dLNormal0.0-1.9[facility] – JacksonComment on above:Performed By: #### CBC, 2276-4, 1-8, 2131-9, 2283-8, 28134-8, FEPR, 17558-0, LIVR, 77969-2, RENAL, 3084-1 #### [facility] ([id number]) [address] [facility], [address] [place], [place] [address]OSRY/CREAT RATIO6.8 mg/gNormal0.0-30.0[facility] Comment on above:Performed By: #### CBC, 2276-4, 1-8, 2131-9, 4-8, 97953- 6, FEPR, 11225-1, LIVR, 60600-2, RENAL, 3084-1 #### [facility] ([id number]) [address] [facility] [place], [place] [address]OJNDZ CREATININE,DGF141.37 mg/dLNormalProHereford Regional Medical Center Comment on above:Performed By: #### CBC, 2276-4, 1-8, 2131-9, 2283-8, 73531- 6, FEPR, 22692-9, LIVR, 71202-2, RENAL, 3084-1 #### [facility] ([id number]) [address] [address] [place], [place] [address]UCYYU PANELon 73-48-2367Ttlvqww [Mass/Vol]4.1 g/dLNormal3.2-5.3 [facility] – JacksonComment on above:Performed By: #### UA #### [facility] ([id number]) [address], [address] [place] [address]Syxdt gap [Moles/Vol]9 mmol/LNormal5-15[facility] – JacksonComment on above:Performed By: #### UA #### [facility] ([id number]) [address], [address] [place], [place] [address]Aseqdjt [Mass/Vol]9.1 mg/dLNormal8.5-10.5PElyria Memorial HospitalComment on above:Performed By: #### UA #### [facility] ([id number]) [address], [address] [place], [place] [address]Ozdfffqg [Moles/Vol]110 mmol/XUyfj24-778SdyTvkvgqHolzer Medical Center – JacksonComment on above:Performed By: #### UA #### [facility] ([id number]) [address], [address] [place] [address]SQ0 [Moles/Vol]26 mmol/SXmsqyt24-48GkkNxcbmyElyria Memorial Hospital Comment on above:Performed By: #### UA #### [facility] ([id number]) [address], [address] [place] [address]Aiqyljhffo [Mass/Vol]1.87 mg/dLHigh0.60-1.30[facility] – JacksonComment on above:Result Comment: METHOD TRACEABLE TO IDMS STANDARD Performed By: #### UA #### [facility] ([id number]) [address], [address] [place] [address]UIB/1.73 sq M.predicted among non-blacks MDRD (S/P/Bld) [Vol rate/Area]38 mL/min/{1.73_m2}Low>=60ProHereford Regional Medical CenterComment on above: Result Comment: Reported eGFR is based on the CKD-EPI 2020 equation that does not use a race coefficient.Performed By: #### UA #### [facility] ([id number]) [address], [address] [place] [address]Jhirjap [Mass/Vol]93 mg/eCJcthsi93-45NrnDaowpyHolzer Medical Center – Jackson Comment on above:Performed By: #### UA #### [facility] ([id number]) [address], [address] [place], [place] [address]Sgdefxrye [Mass/Vol]4.0 mg/dLNormal2.4-4.9ProHereford Regional Medical CenterComment on above:Performed By: #### UA #### [facility] ([id number]) [address], [address] [place], [place] [address]Dpzixrrap [Moles/Vol]4.3 mmol/LNormal3.5-5.0ProHereford Regional Medical CenterComment on above:Performed By: #### UA #### [facility] ([id number]) [address], [address] [place], [place] [address]Kihcmd [Moles/Vol]145 mmol/NFrfvrx927-513YhhEoxcsr Fremont HospitalComment on above:Performed By: #### UA #### [facility] ([id number]) [address], [address] [place], [place] [address]Ybor nitrogen [Mass/Vol]30 mg/dLHigh5-27ProHereford Regional Medical CenterComment on above:Performed By: #### UA #### [facility] ([id number]) [address], [address] [place], [place] [address]XSKRGWAOJDdn 76-13-0950Cmjkwstja Ql (U)NegativeNormalNegative ProMedica Summit CampusComment on above:Performed By: #### UA #### [facility] ([id number]) [address], [address] [place], [place] [address]BEHMP/HGBNegativeNormalNegativeHolzer Medical Center – JacksonComment on above:Performed By: #### UA #### [facility] ([id number]) [address], [address] [place], [place] [address]Mfvxo (U)YellowNormalYellow, ColorlessHolzer Medical Center – Jackson Comment on above:Performed By: #### UA #### [facility] ([id number]) [address], [address] [place], [place] [address]Fajjaku Ql (U)NegativeNormalNegOhioHealth O'Bleness Hospital Comment on above:Performed By: #### UA #### [facility] ([id number]) [address], [address] [place], [place] [address]Bxpkjzx Ql (U)NegativeNormalNegativeHolzer Medical Center – [facility] Comment on above:Performed By: #### UA #### [facility] ([id number]) [address], [address] [place], [place] [address]Ostfcimiv esterase Test strip Ql (U)NegativeNormalNegative ProMvaughan regional medical centera Summit CampusComment on above:Performed By: #### UA #### [facility] ([id number]) [address], [address] [place], [place] [address]Ntzhqvy Ql (U)NegativeNormalNegOhioHealth O'Bleness Hospital Comment on above:Performed By: #### UA #### [facility] ([id number]) [address], [address] [place], [place] [address]XS,URINE6.9Jdixei4.0-8.5ProMedica Summit CampusComment on above:Performed By: #### UA #### [facility] ([id number]) [address], [address] [place], [place] [address]Erdyfda Ql (U)NegativeNormalNegativeHolzer Medical Center – [facility] Comment on above:Performed By: #### UA #### [facility] ([id number]) [address], [address] [place], [place] [address]Ytlyerxt gravity (U) [Rel density]1.363Qurpuq9.003-1.035 [facility] Summit CampusComment on above:Performed By: #### UA #### [facility] ([id number]) [address], [address] [place], [place] [address]HFWDMLIWIOwhcrDdzsgjLwqdoDwvPinqcw [facility]remont HospitalComment on above:Performed By: #### UA #### [facility] ([id number]) [address], [address] [place], [place] [address]ANXZDWOKSAEP<1.1 eu/dLNormal<1.1 eu/dLHolzer Medical Center – [place] Comment on above:Performed By: #### UA #### [facility] ([id number]) [address], [address] [place], [place] [address]HD SPINE CERVICAL 3 VWS OR LESSon 07-75-1621IY SPINE CERVICAL 3 VWS OR LESSXR SPINE [...] by Oh Wild MD on 01/12/2025 12:57 AMNormalProHereford Regional Medical CenterCOMPLETE BLOOD COUNTon [id number] distribution width (RBC) [Ratio]15.0 %Zbldpm93.5-15.0Hol[facility] – JacksonComment on above:Performed By: #### CBC, 2276-4, 2731-8, 2132-9, 2284-8, 34856-5, FEPR, 48978-2, LIVR, 24229-4, RENAL, 3084-1 #### [facility] ([id number]) [address], [address] [place], [place] [address]Kkxhqoxqhw (Bld) [Volume fraction]36.4 %Uax52-58CnaCwuiqlHereford Regional Medical CenterComment on above:Performed By: #### CBC, 6-4, 2730-8, 9, 2283-8, 36877-0, FEPR, 99118-6, LIVR, 22397-6, RENAL, 3084-1 #### [facility] ([id number]) [address] [facility], [address] [place], [place] [address]Siqrygonwl (Bld) [Mass/Vol]12.5 g/dLLow13.0-17.0[facility] – JacksonComment on above:Performed By: #### CBC, 2275-4, 2730-8, 9, 8, 36244-0, FEPR, 48430-8, LIVR, 17391-7, RENAL, 3084-1 #### [facility] ([id number]) [address], [address] [place], [place] [address]DAI (RBC) [Entitic mass]30.8 svXcueiq72-42ItuIevaagHereford Regional Medical CenterComment on above:Performed By: #### CBC, 6-4, 2730-8, 9, 8, 05435-8, FEPR, 91237-8, LIVR, 15140-4, RENAL, 3084-1 #### [facility] ([id number]) [address], [address] [place], [place] [address]RRAF (RBC) [Mass/Vol]34.4 g/jUIfpbdf82-76VkvZqxeuzHereford Regional Medical CenterComment on above:Performed By: #### CBC, 6-4, 2730-8, 9, 2283-8, 20706-0, FEPR, 89635-6, LIVR, 27789-2, RENAL, 3084-1 #### [facility] ([id number]) [address], [address] [place], [place] [address]LXE (RBC) [Entitic vol]89 gTTwxjjm70-459TlaXdalqz [facility]ont HospitalComment on above:Performed By: #### CBC, 6-4, 1-8, 2131-9, 2283-8, 46665-3, FEPR, 35241-8, LIVR, 34910-4, RENAL, 3084-1 #### [facility] ([id number]) [address] [facility], [address] [place], [place] [address]Fkzvelod mean volume (Bld) [Entitic vol]7.4 fLNormal7-12 [facility] – JacksonComment on above:Performed By: #### CBC, 6-4, 2730- 8, 2131-9, 2283-8, 43586-2, FEPR, 25399-1, LIVR, 54732-3, RENAL, 3084-1 #### [facility] ([id number]) [address] [facility], [address] [place], [place] [address]Ihatazevu (Bld) [#/Vol]145 10*3/gQHhj483-613BejXlqcqiHereford Regional Medical CenterComment on above:Performed By: #### CBC, 6-4, 2730-8, 2131-9, 2283-8, 90982-2, FEPR, 23535-7, LIVR, 70084-8, RENAL, 3084-1 #### [facility] ([id number]) [address], [address] [place], [place] [address]BEX COUNT4.08 X10E12/LLow4.10-5.70[facility] Comment on above:Performed By: #### CBC, 6-4, 1-8, 2131-9, 228-8, 80436- 6, FEPR, 26935-2, LIVR, 63757-3, RENAL, 3084-1 #### [facility] ([id number]) [address] [place] [address], [address] [place], [place] [address]QQV (Bld) [#/Vol]5.3 10*3/uLNormal4.0-11.0[facility] – JacksonComment on above:Performed By: #### CBC, 6-4, 2730-8, 9, 2283-8, 25508-6, FEPR, 83957-6, LIVR, 46208-1, RENAL, 3084-1 #### [facility] ([id number]) [address] [place] [address], [address] [place], [place] [address]OCYTJPVAdo 18-14-8200Hjfzwmid [Mass/Vol]67 ng/dYSowsoq67-139 [facility] – JacksonComment on above:Performed By: #### CBC, 6-4, 2730- 8, 9, 2283-8, 11426-4, FEPR, 87751-2, LIVR, 94928-4, RENAL, 3084-1 #### [facility] ([id number]) [address] [place] [address], [address] [place], [place] [address]Oawsjz [Mass/Vol]on 63-13-7027NYXIC ACID24.5 ng/mLNormal>5.8 [facility] – JacksonComment on above:Result Comment: NEW REFERENCE RANGE Performed By: #### CBC, 6-4, 2730-8, 9, 2283-8, 39553-9, FEPR, 20702-4, LIVR, 50828-9, RENAL, 3084-1 #### [facility] ([id number]) [address] [place] [address], [address] [place], [place] [address]OKVX PROFILEon 82-31-1772Ovke [Mass/Vol]75 ug/hACehweo02-188 [facility] – JacksonComment on above:Performed By: #### CBC, 6-4, 2730- 8, 2132-04, 2283-8, 36661-7, FEPR, 35949-9, LIVR, 12665-8, RENAL, 3084-1 #### [facility] ([id number]) [address] [place] [address], [address] [place], [place] [address]IMOO LITFNTB530 ug/pCMqbahe558-447IrsHqqevzHolzer Medical Center – Jackson Comment on above:Performed By: #### CBC, 6-4, 2730-8, 2131-9, 2283-8, 63510- 6, FEPR, 87412-9, LIVR, 25225-5, RENAL, 3084-1 #### [facility] ([id number]) [address] [place] [address], [address] [place], [place] [address]NPSY KMSHHZFMBH52 % ZORCOBQHNTTbz96-17VevYzvgga [facility] Comment on above:Performed By: #### CBC, 6-4, 2730-8, 2131-9, 2283-8, 73990- 6, FEPR, 34514-3, LIVR, 99668-4, RENAL, 3084-1 #### [facility] ([id number]) [address] [place] [address], [address] [place], [place] [address]WPGGD PANELon 21-14-0757Ukibfyf [Mass/Vol]4.3 g/dLNormal3.2-5.3 [facility] Centeredica Summit CampusComment on above:Performed By: #### UA #### [facility] ([id number]) [address] [place] [address], [address] [place], [place] [address]TAG [Catalytic activity/Vol]48 U/SOialzo22-490UpdVeyomnHereford Regional Medical CenterComment on above:Performed By: #### UA #### [facility] ([id number]) [address] [place] [address], [address] [place], [place] [address]GJQ [Catalytic activity/Vol]28 U/LNormal0-40ProHereford Regional Medical CenterComment on above:Performed By: #### UA #### [facility] ([id number]) [address] [facility], [address] [place], [place] [address]CHY [Catalytic activity/Vol]33 U/LNormal0-41ProHereford Regional Medical CenterComment on above:Performed By: #### UA #### [facility] ([id number]) [address] [place] [address], [address] [place], [place] [address]Ohhgiexha [Mass/Vol]0.6 mg/dLNormal0.3-1.2PElyria Memorial HospitalComment on above:Performed By: #### UA #### [facility] ([id number]) [address] [facility], [address] [place], [place] [address]Oryglkgwz.direct [Mass/Vol]0.2 mg/dLNormal0.0-0.4[facility] – JacksonComment on above:Performed By: #### UA #### [facility] ([id number]) [address] [place] [address], [address] [place], [place] [address]Xwgzslf [Mass/Vol]6.7 g/dLNormal6.0-8.0ProHereford Regional Medical CenterComment on above:Performed By: #### UA #### [facility] ([id number]) [address] [place] [address], [address] [place], [place] [address]Crdoa 1996 panelon 83-91-5203Pjziphlbbel [Mass/Vol]119 mg/dLLow 150-200ProHereford Regional Medical CenterComment on above:Performed By: #### CBC, 2276- 4, 2731-8, 2132-9, 2284-8, 66245-6, FEPR, 62162-7, LIVR, 05148-9, RENAL, 3084-1 #### [facility] ([id number]) [address] [facility], [address] [place], [place] [address]Ijlhzjilhxp in HDL [Mass/Vol]42 mg/dLNormal>39ProHereford Regional Medical CenterComment on above:Result Comment: HDL <40 mg/dL - High Risk HDL > or = 40mg/dL- Desirable HDL >60 mg/dL - Negative Risk Performed By: #### RUY, 2276-4, 2731-8, 2132-9, 2284-8, 21944-3, FEPR, 46216-5, LIVR, 90282-3, RENAL, 3084-1 #### [facility] ([id number]) [address] [facility], [address] [place], [place] [address]Bnyzdryqdog in LDL [Mass/Vol]52 mg/dLNormal<130ProHereford Regional Medical CenterComment on above:Result Comment: LDL <100 mg/dL - Desirable LDL >160 mg/dL - High Risk Performed By: #### RUY, 2276-4, 2731-8, 2132-9, 4-8, 83282-6, FEPR, 58736-0, LIVR, 29121-5, RENAL, 3084-1 #### [facility] ([id number]) [address] [facility], [address] [place], [place] [address]Ltksqmltqyk in VLDL [Mass/Vol]25 mg/dLNormal0-30ProHereford Regional Medical CenterComment on above:Performed By: #### RUY, 2276-4, 2731-8, 2132-9, 2284-8, 58050-4, FEPR, 36817-5, LIVR, 08059-9, RENAL, 3084-1 #### [facility] ([id number]) [address] [facility], [address] [place], [place] [address]FWEIVPVWPBW:HDL2.1Yvhuwu1.0-5.0ProHereford Regional Medical CenterComment on above:Performed By: ###Lance REDMOND, 2276-4, 2731-8, 2131-9, 2283-8, 48776-2, FEPR, 20050-8, LIVR, 78968-1, RENAL, 3084-1 #### [facility] ([id number]) [address], [address] [place], [place] [address]Tttpxrmwxlrj [Mass/Vol]125 mg/hHWdhtts16-571NhkMuffah [facility]remont HospitalComment on above:Performed By: #### CBC, 6-4, 2730-8, 9, 2283-8, 73676-9, FEPR, 10441-7, LIVR, 45599-2, RENAL, 3084-1 #### [facility] ([id number]) [address], [facility] [address] [place], [place] [address]PDZZPNNBAbx 13-30-6048Igbbcwhzb [Mass/Vol]2.0 mg/dLNormal1.8-2.6 [facility] CampusComment on above:Performed By: #### UA #### [facility] ([id number]) [address], [address] [place], [place] [address]YLKDNQP CREAT RATIOon 86-63-9682RQGXHX URINE JGAXGRX923 mg/LHigh <120ProHereford Regional Medical CenterComment on above:Performed By: #### UA #### [facility] ([id number]) [address], [address] [place], [place] [address]U/PRO/GEM EXPERT RATIO CALC0.09Normal<0.2PElyria Memorial Hospital Comment on above:Result Comment: Nephrotic Syndrome is associated with ratios >3.5Performed By: #### UA #### [facility] ([id number]) [address], [address] [place], [place] [address]IDIJV CREATININE,ONI569.09 mg/dLNoalHolzer Medical Center – Jackson Comment on above:Performed By: #### UA #### [facility] ([id number]) [address], [address] [place] [address]Idycjztxrm.intact [Mass/Vol]on 57-74-3341PFB BRJCJA20 pg/mL Ihjoji79-48ZtmWdxsfvHolzer Medical Center – JacksonComment on above:Performed By: #### CBC, 2276-4, 2731-8, 2132-9, 2284-8, 81899-8, FEPR, 11506-6, LIVR, 19450-7, RENAL, 3084-1 #### [facility] ([id number]) [address], [address] [place] [address]RHAJN PANELon 87-12-9935Vzekj gap [Moles/Vol]13 mmol/LNormal5-15 [facility] – JacksonComment on above:Performed By: #### UA #### [facility] ([id number]) [address] [address] [place] [address]Kevirdi [Mass/Vol]9.2 mg/dLNormal8.5-10.5PElyria Memorial HospitalComment on above:Performed By: #### UA #### [facility] ([id number]) [address], [address] [place] [address]Xdmnvdva [Moles/Vol]107 mmol/RUaiqsa92-458DynUynkonHereford Regional Medical CenterComment on above:Performed By: #### UA #### [facility] ([id number]) [address] [address] [place] [address]MC2 [Moles/Vol]21 mmol/EZck46-01VopOpyayiElyria Memorial Hospital Comment on above:Performed By: #### UA #### [facility] ([id number]) [address] [address] [place] [address]Jivobrqtqr [Mass/Vol]2.23 mg/dLHigh0.60-1.30[facility] – JacksonComment on above:Result Comment: METHOD TRACEABLE TO IDMS STANDARD Performed By: #### UA #### [facility] ([id number]) [address], [address] [place], [place] [address]UXF/1.73 sq M.predicted among non-blacks MDRD (S/P/Bld) [Vol rate/Area]31 mL/min/{1.73_m2}Low>59ProHereford Regional Medical CenterComment on above: Result Comment: Reported eGFR is based on the CKD-EPI 2020 equation that does not use a race coefficient.Performed By: #### UA #### [facility] ([id number]) [address], [address] [place], [place] [address]Typaadz [Mass/Vol]96 mg/eEKygvtl10-44QylDrqbawHolzer Medical Center – Jackson Comment on above:Performed By: #### UA #### [facility] ([id number]) [address] [address] [place], [place] [address]Lnowbsjfa [Mass/Vol]4.7 mg/dLNormal2.4-4.9ProHereford Regional Medical CenterComment on above:Performed By: #### UA #### [facility] ([id number]) [address] [address] [place], [place] [address]Vmdxpefvm [Moles/Vol]4.4 mmol/LNormal3.5-5.0ProHereford Regional Medical CenterComment on above:Performed By: #### UA #### [facility] ([id number]) [address] [address] [place], [place] [address]Mtaykj [Moles/Vol]141 mmol/TBdgdjo328-096LwdInjnzp [facility] HospitalComment on above:Performed By: #### UA #### [facility] ([id number]) [address] [address] [place], [place] [address]Ahdh nitrogen [Mass/Vol]28 mg/dLHigh5-27ProHereford Regional Medical CenterComment on above:Performed By: #### UA #### [facility] ([id number]) [address] [address] [place], [place] [address]MIHY ACIDon 45-38-4662Lrtqq [Mass/Vol]6.2 mg/dLNormal2.6-7.2 [facility] – JacksonComment on above:Performed By: #### UA #### [facility] ([id number]) [address], [address] [place], [place] [address]DZMHFPBYOLca 66-74-4528Nmqlmnmnk Ql (U)NegativeNormalNEG [facility] – JacksonComment on above:Performed By: #### UA #### [facility] ([id number]) [address], [address] [place], [place] [address]MFUWC/HGBNegativeNormalNEGHolzer Medical Center – JacksonComment on above:Performed By: #### UA #### [facility] ([id number]) [address], [address] [place], [place] [address]Xchqw (U)YELLOWNormalYELLOWHolzer Medical Center – JacksonComment on above:Performed By: #### UA #### [facility] ([id number]) [address], [address] [place], [place] [address]Gqbrnco Ql (U)NegativeNormalNEGHolzer Medical Center – JacksonComment on above:Performed By: #### UA #### [facility] ([id number]) [address], [address] [place], [place] [address]Xtvazxx casts LM Ql (Urine sed)4 /lpfHigh0-2PElyria Memorial HospitalComment on above:Performed By: #### UA #### [facility] ([id number]) [address], [address] [place], [place] [address]Hvisnti Ql (U)NegativeNormalNEGHolzer Medical Center – JacksonComment on above:Performed By: #### UA #### [facility] ([id number]) [address], [address] [place], [place] [address]Lififmajy esterase Test strip Ql (U)NegativeNormalNEGProHereford Regional Medical CenterComment on above:Performed By: #### UA #### [facility] ([id number]) [address] [place] [address], [address] [place], [place] [address]PAYTYLUCBSOQAIuvrtkurBWDOUbaGzbgrw [facility] HospitalComment on above:Performed By: #### UA #### [facility] ([id number]) [address] [place] [address], [address] [place], [place] [address]Rtdbxpy Ql (U)NegativeNormalNEGHolzer Medical Center – JacksonComment on above:Performed By: #### UA #### [facility] ([id number]) [address] [place] [address], [address] [place], [place] [address]jE (U)6.0 [pH]Normal5.0-8.5PElyria Memorial HospitalComment on above:Performed By: #### UA #### [facility] ([id number]) [address] [place] [address], [address] [place], [place] [address]Tmgffqr Ql (U)TraceAbnormalNEGHolzer Medical Center – JacksonComment on above:Performed By: #### UA #### [facility] ([id number]) [address] [place] [address], [address] [place], [place] [address]L.B.CELLS0 /hpfNormal0-5PElyria Memorial HospitalComment on above:Performed By: #### UA #### [facility] ([id number]) [address] [facility], [address] [place], [place] [address]Poaomyuu gravity (U) [Rel density]1.454Poexmi9.003-1.035 [facility] CampusComment on above:Performed By: #### UA #### [facility] ([id number]) [address] [facility], [address] [place], [place] [address]STQVHYDQIEBKVWIrnvdzXNQHKEvcQeyosf [facility] HospitalComment on above:Performed By: #### UA #### [facility] ([id number]) [address], [address] [place], [place] [address]Xumugynojmxe (U) [Mass/Vol]mg/dLNormal<1.1PElyria Memorial HospitalComment on above:Performed By: #### UA #### [facility] ([id number]) [address], [address] [place], [place] [address]A.B.CELLS2 /hpfNormal0-5PElyria Memorial HospitalComment on above:Performed By: #### UA #### [facility] ([id number]) [address], [address] [place], [place] [address]ZDGKURS B12on 27-06-7134Hscrunvhj (Vitamin B12) [Mass/Vol]462 pg/rQTaibzc258-296MqoOaxaayElyria Memorial HospitalComment on above:Performed By: #### CBC, 2276-4, 1-8, 9, 2283-8, 92355-3, FEPR, 19863-1, LIVR, 72574-7, RENAL, 3084-1 #### [facility] ([id number]) [address], [address] [place], [place] [address]Hmjvnbc D+Metabolites [Mass/Vol]on 03-00-7962RNHUQBF D 25 HYD TOT72.1 ng/tTDudatt68-814TfvRpeqws [facility] HospitalComment on above:Result Comment: Vitamin D status 25 [place] Vitamin D Deficiency <20 ng/mL Insufficiency 20-29 ng/mL Sufficiency 30-100 ng/mL Toxicity >100 ng/mL NOTE: A pediatric reference range has not been established by the coping machine operator of this kit. The [place] [employer] recommends a Vitamin D level of = or >20ng/mL in infants and children.Performed By: #### CBC, 2276-4, 2731-8, 2131-9, 2283-8, 11016-6, FEPR, 26085-1, LIVR, 96532-3, RENAL, 3084-1 #### [facility] ([id number]) [address] [facility], [address] [place], [place] [address]Qozocx Visiton 65-22-8726Fxjroq-up [id number] CastilloKel 1955 M Date Provider Department Center 10/13/2024 271-SARAH TOLLIVER Family History Problem Relation Age of Onset Diabetes Mother Family Status - Relation Status Age at Mother Level of Service:[address] [place] OFFICE/OUTPATIENT ESTABLISHED MOD MDM 30 [facility]CNOVon 62-78-8264JXJDGwjnfs Visit (NEIND4) SAMIR CASTILLO ([id number]) 1955 M Date Time Provider Department 10/12/24 [...] Eun Trent DO 10/12/2024 2:47 PM Signed [facility] General Neurology Follow up/ Established patient visit Individuals who were included in, or assisted with the encounter were: Samir Castillo Eun Black DO Chief Complaint/Issues: Samir Castillo is a 69 year old male seen in the [facility] for General Neurology for: Memory loss [...] list. Holding a coffee (more content not included)...[facility] CNOVon 30-91-5541JPHWNiuchf Visit (NPTU10) SAMIR CASTILLO ([id number]) 1955 M Date Time Provider Department 09/08/24 8:00 AM MISTY POLO NPTU10 During your visit today, we recorded the following information about you: Misty Polo, PhD 09/10/2024 4:[address] [facility] Department of Neurology Section of Neuropsychology Neuropsychological Evaluation Report CONFIDENTIAL Patient: Samir Castillo Date of : 1955 Referred by: Eun Black MD (Neurology) Education: 10 Handedness: R Language(s): Bur[place]ian Date of Evaluation: 09/08/2024 Mr. Castillo is [...] no Problems with mother's /delivery: no Early SUMMER NANNY infection, high fever, significant childhood illness: no SCHOOL HISTORY: Years of education completed: 10; left school early because he did not like it. 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 One day will feel worried and next day will feel okay. Has been this way for a long time. Mental health treatment: He endorsed lo (more content not included)...Normal [facility] ClevelandLipid 1996 panelon 02-93-6242Wqvqitvvihs [Mass/Vol]142 mg/sNLqb957 - 200 mg/dLNOMS HealthcareCholesterol in HDL [Mass/Vol]43 mg/dL39 - PINF mg/dLNOMS HealthcareComment on above: HDL <40 mg/dL - High Risk HDL > or = 40mg/dL- Desirable HDL >60 mg/dL - Negative Risk Cholesterol in HDL/Total Cholesterol [Mass ratio]3.3 {ratio}1.0 - 5.0[facility] HealthcareComment on above:PERFORMED AT [address],[place], [place] [address]Jzwhohjmudq in LDL [Mass/Vol]75 mg/dLNINF - 130 mg/dL [facility] HealthcareComment on above: LDL <100 mg/dL - Desirable LDL >160 mg/dL - High Risk Cholesterol in VLDL [Mass/Vol]24 mg/dL0 - 30 mg/dLCACHE VALLEY HOSPITAL HealthcareInterpretation and review of laboratory resultsAbnormalCoxHealthTriglyceride [Mass/Vol] 118 mg/dL27 - 150 mg/dLNOAspirus Langlade HospitalCholesterol [Mass/Vol]142 mg/dHIkd763-709SkzXefxncHereford Regional Medical CenterComment on above:Performed By: #### 83649-2 #### [facility] ([id number]) [address] [place] [address], [address] [place], [place] [address]Ysinflckvyv in HDL [Mass/Vol]43 mg/dLNormal>39Hol[facility] Center – JacksonComment on above:Result Comment: HDL <40 mg/dL - High Risk HDL > or = 40mg/dL- Desirable HDL >60 mg/dL - Negative Risk Performed By: #### 96289-0 #### [facility] ([id number]) [address] [place] [address], [address] [place], [place] [address]Doqhjckdyav in LDL [Mass/Vol]75 mg/dLNormal<130ProHereford Regional Medical CenterComment on above:Result Comment: LDL <100 mg/dL - Desirable LDL >160 mg/dL - High Risk Performed By: #### 93431-4 #### [facility] ([id number]) [address], [address] [place], [place] [address]Uywljelwgid in VLDL [Mass/Vol]24 mg/dLNormal0-30ProHereford Regional Medical CenterComment on above:Performed By: #### 84423-8 #### [facility] ([id number]) [address], [address] [place], [place] [address]AKPUOOQJHJO:HDL3.9Acqiok2.0-5.0ProHereford Regional Medical CenterComment on above:Performed By: #### 14525-1 #### [facility] ([id number]) [address], [address] [place], [place] [address]Sfxmgzguwgee [Mass/Vol]118 mg/zNAvcqqt24-507SarCnvfqh [facility] HospitalComment on above:Performed By: #### 87868-3 #### [facility] ([id number]) [address], [address] [place], [place] [address]SR BRAIN WO IVCONon 04-09-6013EK BRAIN WO IVCON* * *Final Report* * [...] NO CT EVIDENCE OF ACUTE INTRACRANIAL PROCESS. Pit Supervisor: [facility] Transcribe Date/Time: May 12 2024 3:59P Dictated by : FIDEL DAVIDSON MD This examination was interpreted and the report reviewed and electronically signed by: FIDEL DAVIDSON MD on May 12 2024 4:07PM [facility] [id number]_IDCSIACNNEmerson HospitalCT Head WO contraston 05-12-2024 IMPRESSION: NO CT EVIDENCE OF ACUTE INTRACRANIAL PROCESS. Pit Supervisor: [facility] Transcribe Date/Time: May 12 2024 3:59P Dictated [...] Localizer images: No additional findings. [facility] RADIOLOGYProvider, [facility] [place] - 05/12/2024 * * *Final Report* * [...] NO CT EVIDENCE OF ACUTE INTRACRANIAL PROCESS. Pit Supervisor: [facility] Transcribe Date/Time: May 12 2024 3:59P Dictated by : FIDEL DAVIDSON MD This examination was interpreted and the report reviewed and electronically signed by: FIDEL DAVIDSON MD on May 12 2024 4:07PM EST [facility] CenterRadiology Study observation (narrative)[facility] Head WO contrastOrdered By: [facility] Provider on 17-03-2445Rnfxueant ClinicCNOVon [id number] Visit (NEIND4) SAMIR CASTILLO ([id number]) 1955 M Date Time Provider Department 05/04/24 9:30 AM EUN TRENT NEIND4 During your visit today, we recorded the following information about you: Pulse Blood pressure Weight Height 57/minute 138/63 80.5 kg 1.676 m Eun Trent DO 05/04/2024 10:17 PM Signed [facility] General Neurology Follow up/ Established patient visit Individuals who were included in, or assisted with the encounter were: Samir Castillo Eun Black DO Chief Complaint/Issues: Samir Castillo is a 69 year old male seen in the [facility] for General Neurology for: Memory loss [...] over medications. 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 MOCA December 2021 [...] mouth twice daily. isos (more content not included)...NormalToledo Hospital SHOULDER LEFT W/Oon [id number] [address] Magnetic Resonance Report Signed Patient: KEL CASTILLO Jr. MR#: [id number] : 1955 Acct:[id number] Age/Sex: 68 / M ADM Date: 09/05/23 Loc: MRI Attending Dr: Bimal Mcgowan M.D. Ordering Physician: Bimal Mcgowan M.D. Date of Service: 09/05/23 Procedure(s): MR shoulder LT wo con Accession Number(s): [id number] cc: Bimal Mcgowan M.D.; Shaikh Krish Grimes [place] [id number] Patient Name: KEL CASTILLO MRN: [id number] date: 1955 Sex: M Assigned Patient Location: MRI Current Patient Location: MRI Accession/Order Number: [id number] Exam Date: 09/05/2023 14:55 Report Date: 09/05/2023 [...] Rivero M.D. Signed By: 09/05/238 DD/ TD/TT: Pit Supervisor:TBHRadiology, Radiologist, - 09/05/2023 [place] [address] Magnetic Resonance Report Signed Patient: KEL CASTILLO Jr. MR#: [id number] : 1955 Acct:[id number] Age/Sex: 68 / M ADM Date: 09/05/23 Loc: MRI Attending Dr: Bimal Mcgowan M.D. Ordering Physician: Bimal Mcgowan M.D. Date of Service: 09/05/23 Procedure(s): MR shoulder LT wo con Accession Number(s): [id number] cc: Bimal Mcgowan M.D.; Shaikh Krish Grimes [place] [address] Patient Name: KEL CASTILLO MRN: [id number] date: 1955 Sex: M Assigned Patient Location: MRI Current Patient Location: MRI Accession/Order Number: [id number] Exam Date: 09/05/2023 14:55 Report Date: 09/05/2023 [...] Signed By: 09/05/23 1618 DD/ 14 TD/TT: Pit Supervisor: [facility]WIN HealthcareRadiology Study observation (narrative)[facility] SHOULDER LEFT W/OOrdered By: Radiologist Radiology on [id number] mydeco Work Phone: XR Shoulder - left 2 Viewson [phone] [address] XRay Report Signed Patient: KEL CASTILLO Jr. MR#: [id number] : 1955 Acct:[id number] Age/Sex: 68 / M ADM Date: 08/26/23 Loc: RAD Attending Dr: Bimal Mcgowan M.D. Ordering Physician: Bimal Mcgowan M.D. Date of Service: 08/26/23 Procedure(s): XR shoulder LT min 2V Accession Number(s): [id number] cc: Bimal Mcgowan M.D.; Shaikh Krish Grimes [address] [address] Patient Name: KEL CASTILLO MRN: [facility]:[id number] date: 1955 Sex: M Assigned Patient Location: [facility] Current Patient Location: [facility] Accession/Order Number: [id number] Exam Date: 08/26/2023 11:50 Report Date: 08/26/2023 [...] Signed By: 08/26/23 1517 DD/ 13 TD/TT: Pit Supervisor:REJIHRadiology, Radiologist, MD - 10/16/2023 The [place] [id number] XRay Report Signed Patient: KEL CASTILLO Jr. MR#: [id number] : 1955 Acct:[id number] Age/Sex: 68 / M ADM Date: 08/26/23 Loc: RAD Attending Dr: Bimal Mcgowan M.D. Ordering Physician: Bimal Mcgowan M.D. Date of Service: 08/26/23 Procedure(s): XR shoulder LT min 2V Accession Number(s): [id number] cc: Bimal Mcgowan M.D.; Shaikh Krish Grimes [place] [id number] Patient Name: KEL CASTILLO MRN: [id number] date: 1955 Sex: M Assigned Patient Location: RAD Current Patient Location: [facility] Accession/Order Number: [id number] Exam Date: 08/26/2023 11:50 Report Date: 08/26/2023 [...] Signed By: 08/26/23 1517 DD/ 13 TD/TT: Pit Supervisor: [facility] CHILDRENHolden HealthcareRadiology Study observation (narrative)[facility] HealthcareXR Shoulder - left 2 ViewsOrdered By: Radiologist Radiology on 07-25-5000[facility] Work Phone: XR Shoulder - left 2 Viewson [phone] [address] XRay Report Signed Patient: KEL CASTILLO Jr. MR#: [id number] : 1955 Acct:[id number] Age/Sex: 68 / M ADM Date: 07/29/23 Loc: RAD Attending Dr: Bimal Mcgowan M.D. Ordering Physician: Bimal Mcgowan M.D. Date of Service: 07/29/23 Procedure(s): XR shoulder LT min 2V Accession Number(s): [id number] cc: Bimal Mcgowan M.D.; Shaikh Krish Grimes The [address] [address] Patient Name: KEL CASTILLO MRN: [facility]:[id number] date: 1955 Sex: M Assigned Patient Location: RAD Current Patient Location: RAD Accession/Order Number: [id number] Exam Date: 07/29/2023 11:20 Report Date: 07/29/2023 [...] or dislocation. Glenohumeral relationship appears grossly unremarkable. Ytzo-jg-yzzepias degenerative changes about the acromioclavicular joint. Soft tissues are grossly within normal limits. Postoperative sternotomy wires and clips are present. XR/XR shoulder LT min 2V IMPRESSION: Left shoulder study fails to demonstrate definite acute fracture or dislocation. Follow-up as needed. Electronically authenticated by: KEL JOSHUA Date: 07/29/2023 16:01 Dictated By: Kel Joshua M.D. Signed By: 07/29/23 1604 DD/ 1601 TD/TT: Pit Supervisor:TBHRadiology, Radiologist, MD - 07/29/2023 [place] [address] XRay Report Signed Patient: KEL CASTILLO Jr. MR#: [id number] : 1955 Acct:[id number] Age/Sex: 68 / M ADM Date: 07/29/23 Loc: RAD Attending Dr: Bimal Mcgowan M.D. Ordering Physician: Bimal Mcgowan M.D. Date of Service: 07/29/23 Procedure(s): XR shoulder LT min 2V Accession Number(s): [id number] cc: Bimal Mcgowan M.D.; Shaikh Krish Grimes [place] [address] Patient Name: KEL CASTILLO MRN: [facility]:[id number] date: 1955 Sex: M Assigned Patient Location: [facility] Current Patient Location: RAD Accession/Order Number: [id number] Exam Date: 07/29/2023 11:20 Report Date: 07/29/2023 [...] or dislocation. Glenohumeral relationship appears grossly unremarkable. Czti-cf-ykzvxbkg degenerative changes about the acromioclavicular joint. Soft tissues are grossly within normal limits. Postoperative sternotomy wires and clips are present. XR/XR shoulder LT min 2V IMPRESSION: Left shoulder study fails to demonstrate definite acute fracture or dislocation. Follow-up as needed. Electronically authenticated by: KEL JOSHUA Date: 07/29/2023 16:01 Dictated By: Kel Joshua M.D. Signed By: 07/29/23 1604 DD/ 1601 TD/TT: Pit Supervisor: NOMHolden HealthcareRadiology Study observation (narrative)[facility] HealthcareXR Shoulder - left 2 ViewsOrdered By: Radiologist Radiology on [phone] Work Phone: ct abdomen pelvis wo conon [phone] abdomen pelvis wo [facility] [place] [address] CT Scan Report Signed Patient: Kel Castillo Jr MR#: [id number] : 1955 Acct:[id number] Age/Sex: 67 / M ADM Date: 04/09/23 Loc: ER Room: Type: [facility] ER Attending Dr: Copies to: Lucy [...] Damien Negrete M.D.04/09/2023 2:28 PM Dictation Location: [place] [address] Transcribed By: [facility] 04/09/23 1428 Dictated By: Damien Negrete DO 04/09/23 1422 Signed By: 04/09/23 1428[facility]igh HospitalComplete Blood Count Auto Diffon 69-40-2056Acvaobsyd (Bld) [#/Vol]0.1 10*3/uLNormal0.0-0.2FGreene Memorial HospitalComment on above:Result Comment: PERFORMED BY: [place] [address] PATHOLOGIST EXCHANGE MECHANIC TROY SIGALA M.D.Performed By: #### CBC #### [place] [address] USABasophils/100 WBC (Bld)1.0 %Normal.[facility] HospitalComment on above:Performed By: #### CBC #### [place] [address] USAEosinophils (Bld) [#/Vol]0.2 10*3/uLNormal0.0-0.45 [facility] HospitalComment on above:Performed By: #### CBC #### [place] [address] USAEosinophils/100 WBC (Bld)2.8 %Normal.[facility] HospitalComment on above:Performed By: #### CBC #### [place] [address] USAErythrocyte distribution width (RBC) [Ratio]14.5 %Normal 12.0-14.8[facility] HospitalComment on above:Performed By: #### CBC #### [place] [address] USAHematocrit (Bld) [Volume fraction]39.2 %Wdvkhr52.8-50.0 [facility] HospitalComment on above:Performed By: #### CBC #### [place] [address] USAHemoglobin (Bld) [Mass/Vol]13.0 g/tCQelpji88.0-17.0 [facility] HospitalComment on above:Performed By: #### CBC #### [place] [address] USALymphocytes (Bld) [#/Vol]1.1 10*3/uLNormal1.00-4.8 [facility] HospitalComment on above:Performed By: #### CBC #### [place] [address] USALymphocytes/100 WBC (Bld)14.1 %Normal.[facility] HospitalComment on above:Performed By: #### CBC #### [facility] [address] [place], [place] [address]H (RBC) [Entitic mass]30.4 jlLyofdp69.5-35.2FGreene Memorial HospitalComment on above:Performed By: #### CBC #### [address]V (RBC) [Entitic vol]91.5 bUQsectz20.5-101Ohio [facility] HospitalComment on above:Performed By: #### CBC #### [place] [address] USAMean Corpuscular HGB Conc33.2 g/qSMcojlf99.5-35.6FGreene Memorial HospitalComment on above:Performed By: #### CBC #### [place] [address] USAMonocytes (Bld) [#/Vol]0.5 10*3/uLNormal0.0-0.8[facility] HospitalComment on above:Performed By: #### CBC #### [place] [address] USAMonocytes/100 WBC (Bld)16.97 %Normal0.00-20.00[facility] HospitalComment on above:Performed By: #### CBC #### [place] [address] USAMonocytes/100 WBC (Bld)6.6 %Normal.[facility] HospitalComment on above:Performed By: #### CBC #### [place] [address] USANeutrophils (Bld) [#/Vol]5.9 10*3/uLNormal1.8-7.7FGreene Memorial HospitalComment on above:Performed By: #### CBC #### [place] [address] USANeutrophils/100 WBC (Bld)75.5 %Normal.[facility] HospitalComment on above:Performed By: #### CBC #### [place] [address] USANRBC%0.0 /100{WBC}Normal0-0.5FGreene Memorial HospitalComment on above:Performed By: #### CBC #### [place] [address] USAPlatelet mean volume (Bld) [Entitic vol]7.5 fLNormal 6.6-10.1FGreene Memorial HospitalComment on above:Performed By: #### CBC #### [place] [address] USAPlatelets (Bld) [#/Vol]180 10*3/fBGygagp556-333XsmkuxdqlOhio Valley HospitalComment on above:Performed By: #### CBC #### [place] [address] USARBC (Bld) [#/Vol]4.29 10*6/uLNormal3.90-5.60[facility] HospitalComment on above:Performed By: #### CBC #### [place] [address] USAWBC (Bld) [#/Vol]7.8 10*3/uLNormal4.1-10.5FGreene Memorial HospitalComment on above:Performed By: #### CBC #### [place] [address] USAComprehensive Metabolic Panelon 56-26-4138Hrvzrku [Mass/Vol]4.3 g/dLNormal3.5-5.7FGreene Memorial HospitalComment on above:Performed By: #### PTT, LIPASE, PT, CMP #### [place] [address] USAAlbumin/Globulin [Mass ratio]1.2 {ratio}NormalOhio Valley HospitalComment on above:Performed By: #### PTT, LIPASE, PT, CMP #### [facility] [address] [place] [address] USAALP [Catalytic activity/Vol]105 U/WGwsy98-944AvifxdlfmOhio Valley HospitalComment on above:Performed By: #### PTT, LIPASE, PT, CMP #### [facility] [address] [place] [address] USAALT [Catalytic activity/Vol]61 U/LHigh7-52[facility] HospitalComment on above:Performed By: #### PTT, LIPASE, PT, CMP #### [facility] [address] [place] [address] USAAnion gap [Moles/Vol]12.5 mmol/LNormal6.0-15.0[facility] Valley HospitalComhelen newberry joy hospital on above:Performed By: #### PTT, LIPASE, PT, CMP #### [facility] [address] [place] [address] USAAST [Catalytic activity/Vol]62 U/BPudd27-83VcwopimtcOhio Valley HospitalComment on above:Performed By: #### PTT, LIPASE, PT, CMP #### [facility] [address] [place] [id number] USABilirubin [Mass/Vol]0.8 mg/dLNormal0.3-1.0[facility] HospitalComhelen newberry joy hospital on above:Performed By: #### PTT, LIPASE, PT, CMP #### [facility] [address] [place] [address] USACalcium [Mass/Vol]9.0 mg/dLNormal8.6-10.3FGreene Memorial HospitalComment on above:Performed By: #### PTT, LIPASE, PT, CMP #### [facility] [address] [place] [address] USAChloride [Moles/Vol]107 mmol/ZCcmlou83-887XpththmooOhio Valley HospitalComment on above:Performed By: #### PTT, LIPASE, PT, CMP #### [facility] [address] [place] [address] USACO2 [Moles/Vol]25.1 mmol/XZegqzg21.0-31.0[facility] HospitalComment on above:Performed By: #### PTT, LIPASE, PT, CMP #### [facility] [address] [place] [address] USACreatinine [Mass/Vol]1.76 mg/dLHigh0.70-1.30[facility] HospitalComment on above:Performed By: #### PTT, LIPASE, PT, CMP #### [facility] [address] [place] [address] USACreatinine Clr Calc Bfinpntg15.17NoBucyrus Community HospitalComment on above:Performed By: #### PTT, LIPASE, PT, CMP #### [facility] [address] [place] [address] USAGFR/1.73 sq M.predicted MDRD (S/P/Bld) [Vol rate/Area] 41.342 mL/min/{1.73_m2}[facility]beigh HospitalComment on above: Performed By: #### PTT, LIPASE, PT, CMP #### [facility] [address] [place] [address] USAGlobulin (S) [Mass/Vol]3.7 g/dLNoBucyrus Community HospitalComment on above:Performed By: #### PTT, LIPASE, PT, CMP #### [facility] [address] [place] [address] USAGlucose [Mass/Vol]89 mg/pFAwsgnp10-592RbxoabtoaOhio Valley HospitalComment on above:Result Comment: Random Glucose Reference Range is dependent on time and content of last meal. Glucose of more than 200 mg/dL in a nonstressed, ambulatory subject supports the diagnosis of Diabetes Mellitus. ADA recommended reference rangePerformed By: #### PTT, LIPASE, PT, CMP #### [facility] [address] [place] [address] USAPotassium [Moles/Vol]4.6 mmol/LNormal3.5-5.1FGreene Memorial HospitalComment on above:Performed By: #### PTT, LIPASE, PT, CMP #### [facility] [address] [place] [address] USAProtein [Mass/Vol]8.0 g/dLNormal6.4-8.9[facility] Valley HospitalComment on above:Performed By: #### PTT, LIPASE, PT, CMP #### [facility] [address] [place] [address] USASodium [Moles/Vol]140 mmol/WSwbnvo945-415SeuhvseepOhio Valley HospitalComment on above:Performed By: #### PTT, LIPASE, PT, CMP #### [facility] [address] [place] [address] USAUrea nitrogen [Mass/Vol]25 mg/dLNormal7-25[facility] Valley HospitalComment on above:Performed By: #### PTT, LIPASE, PT, CMP #### [facility] [address] [place] [address] USADipstick and Microscopicon 51-07-5207Joddhdoljr (U)Cloudy Critically abnormalCleMercy Health Perrysburg HospitalComment on above:Order Comment: Name Collection Type:: Clean-Voided MidstreamPerformed By: #### ADDONUAPLUS #### [facility] [address] [place] [address] USABacteria,UrineNone SeenNormalNone SeenOhio Valley HospitalComment on above:Order Comment: Name Collection Type:: Clean- Voided MidstreamPerformed By: #### ADDONUAPLUS #### [facility] [address] [place] [address] USABilirubin,UrineNegativeNormalNegativeOhio Valley HospitalComment on above:Order Comment: Name Collection Type:: Clean- Voided MidstreamPerformed By: #### ADDONUAPLUS #### [facility] [address] [place], [place] [address] USAColor (U)YellowNormalYellowOhio Valley HospitalComment on above:Order Comment: Name Collection Type:: Clean-Voided MidstreamPerformed By: #### ADDONUAPLUS #### [facility] [address] [place] [address] USAGlucose Ql (U)NormalNormalNormalOhio Valley HospitalComment on above:Order Comment: Name Collection Type:: Clean-Voided MidstreamPerformed By: #### ADDONUAPLUS #### [place] [address] USAHyaline Casts,UrineNone SeenNormal0-8[facility] Valley HospitalComment on above:Order Comment: Name Collection Type:: Clean- Voided MidstreamResult Comment: PERFORMED BY: [place] [address] PATHOLOGIST EXCHANGE MECHANIC TROY SIGALA M.D.Performed By: #### ADDONUAPLUS #### [place] [address] USAKetones Ql (U)NegativeNormalNegProMedica Flower HospitalComment on above:Order Comment: Name Collection Type:: Clean- Voided MidstreamPerformed By: #### ADDONUAPLUS #### [place] [address] USALeukocyte esterase Test strip Ql (U)NegativeNormalNegative [facility] HospitalComment on above:Order Comment: Name Collection Type:: Clean-Voided MidstreamPerformed By: #### ADDONUAPLUS #### [place] [address] USANitrite,UrineNegativeNormctNegProMedica Flower HospitalComment on above:Order Comment: Name Collection Type:: Clean- Voided MidstreamPerformed By: #### ADDONUAPLUS #### [place] [id number] USAOccult Blood,UrineNegativeNormalNegProMedica Flower HospitalComment on above:Order Comment: Name Collection Type:: Clean- Voided MidstreamResult Comment: PERFORMED BY: [place] [address] PATHOLOGIST EXCHANGE MECHANIC TROY SIGALA M.D.Performed By: #### ADDONUAPLUS #### [facility] [address] [place] [address] USApH (U)5.5 [pH]Normal5.0-9.0[facility] HospitalComment on above:Order Comment: Name Collection Type:: Clean-Voided MidstreamPerformed By: #### ADDONUAPLUS #### [place] [address] USAProtein,UrineNegativeNormalNegativeOhio Valley HospitalComment on above:Order Comment: Name Collection Type:: Clean- Voided MidstreamPerformed By: #### ADDONUAPLUS #### [place] [address] USARBC LM.HPF (Urine sed) [#/Area]0 /[HPF]Normal0-[address] [place], [place] [address]Comment on above:Order Comment: Name Collection Type:: Clean-Voided MidstreamPerformed By: #### ADDONUAPLUS #### [place] [address] USASpecificy [place],Urine1.614Uqfage6.001-1.030[facility] Valley HospitalComment on above:Order Comment: Name Collection Type:: Clean-Voided MidstreamPerformed By: #### ADDONUAPLUS #### [place] [address] USASquamous Epithelial Cell,UrineNone SeenNormal[address] [place], [place] [address]Comment on above:Order Comment: Name Collection Type:: Clean-Voided MidstreamPerformed By: #### ADDONUAPLUS #### [place] [address] USAUrobilinogen,UrineNormalNormalNormalOhio Valley HospitalComment on above:Order Comment: Name Collection Type:: Clean- Voided MidstreamPerformed By: #### ADDONUAPLUS #### [place] [address] USAWBC LM.HPF (Urine sed) [#/Area]0 /[HPF]Normal0-4FGreene Memorial HospitalComment on above:Order Comment: Name Collection Type:: Clean-Voided MidstreamPerformed By: #### ADDONUAPLUS #### [address] [address] USALipaseon 84-44-4615Mlbwwk [Catalytic activity/Vol]92.0 U/L High11.0-82.0[facility] Valley HospitalComment on above:Result Comment: PERFORMED BY: [place] [address] PATHOLOGIST EXCHANGE MECHANIC TROY SIGALA M.D.Performed By: #### PTT, LIPASE, PT, CMP #### [place] [id number] USAPartial Thromboplastin Timeon 29-73-7324lGRF Coag (Bld) [Time]30.9 qUtvbni66.1-36.5FGreene Memorial HospitalComment on above: Result Comment: PERFORMED BY: [place] [address] PATHOLOGIST EXCHANGE MECHANIC TROY SIGALA M.D.Performed By: #### PTT, LIPASE, PT, CMP #### [place] [id number] USAProthrombin Time INRon 38-59-1233VYU Coag (PPP) [Relative time]1.0 {INR}NormalOhio Valley HospitalComment on above:Result Comment: INR Therapeutic Range A) [...] By: #### PTT, LIPASE, PT, CMP #### [place] [id number] USAPT Coag (PPP) [Time]11.9 sNormal9.0-12.9[facility] Valley HospitalComment on above:Performed By: #### PTT, LIPASE, PT, CMP #### [place] [id number] USACBC AUTO DIFFon 15-15-9378ESKT #0.1 103/ulNormal0.0-0.1The Uk HealthcareComment on above:Performed By: #### CBC #### [facility] [address] [place] [address] Dr. Hattie NewsomeBasophils/100 WBC (Bld)0.8 %Normal0.2-2.0[facility] Comment on above:Performed By: #### CBC #### [facility] [address] [place] [address] Dr. Hattie Duarte #0.3 103/ulNormal0.0-0.7The [facility] HealthcareComment on above: Performed By: #### CBC #### [facility] [address] [place] [address] Dr. Hattie Dongosinophils/100 WBC (Bld)3.2 %Normal0.9-7.0[facility] Comment on above:Performed By: #### CBC #### [facility] [address] [place] [address] Dr. Hattie Funezthrocyte distribution width (RBC) [Ratio]14.3 %Eclsws80.0-15.0 [facility] HospitalComment on above:Performed By: #### CBC #### [facility] [address] [place] [address] Dr. Hattie NewsomeHematocrit (Bld) [Volume fraction]39.7 %Critically low42.0-54.0 The [facility] HealthcareComment on above:Performed By: #### CBC #### [facility] [address] [place] [address] Dr. Hattie NewsomeHemoglobin (Bld) [Mass/Vol]13.0 g/dLCritically low14.0-18.0The [facility] HealthcareComment on above:Performed By: #### CBC #### [facility] [address] [place] [address] Dr. Hattie Max #0.06 10e3/ulCritically high0.00-0.03The [facility] Comment on above:Performed By: #### CBC #### [facility] [address] [place] [address] [address] Hattie Max %0.8 %Critically high0.0-0.5The [facility] HealthcareComment on above:Performed By: #### CBC #### [facility] [address] [place] [address] Dr. Hattie Priest #1.3 103/ulNormal1.2-3.8The [facility] HealthcareComment on above:Performed By: #### CBC #### [facility] [address] [place] [address] Dr. Hattie Daleyhocytes/100 WBC (Bld)16.8 %Critically low20.5-60.0The [facility] HealthcareComment on above:Performed By: #### CBC #### [facility] [address] [place] [address] Dr. Hattie BorreroUAL DIFF REQNONormalThe Uk HealthcareComment on above: Performed By: #### CBC #### [facility] [address] [place] [address] Dr. Hattie Jessica (RBC) [Entitic mass]30.5 xyQgpnck51.9-34.0The [facility] HealthcareComment on above:Performed By: #### CBC #### [facility] [address] [place] [address] Dr. Hattie Jessica (RBC) [Mass/Vol]32.7 g/iUXynwbx95.9-35.2The [facility] HealthcareComment on above:Performed By: #### CBC #### [facility] [address] [place] [address] Dr. Hattie Jessica (RBC) [Entitic vol]93.2 hVSeubfz84.0-94.0The [facility] HealthcareComment on above:Performed By: #### CBC #### [facility] [address] [place] [address] Dr. Hattie Jeff #0.5 103/ulNormal0.3-0.8The [facility] HealthcareComment on above:Performed By: #### CBC #### [facility] [address] [place] [address] [address] Hattie Learyocytes/100 WBC (Bld)7.0 %Normal1.7-12.0The [facility] Comment on above:Performed By: #### CBC #### [facility] [address] [place] [address] [address] Hattie SalgadoUT #5.5 103/ulNormal1.4-6.5The [facility] HealthcareComment on above:Performed By: #### CBC #### [facility] [address] [place] [address] Dr. Hattie Salgadoutrophils/100 WBC (Bld)71.4 %Qbsfyk93.0-75.0The [facility] HealthcareComment on above:Performed By: #### CBC #### [facility] [address] [place] [address] Dr. Hattie NewsomePlatelet mean volume (Bld) [Entitic vol]9.4 fLCritically low 9.5-13.5The [facility] HealthcareComment on above:Performed By: #### CBC #### [facility] [address] [place] [address] Dr. Hattie NewsomePLT169 103/yzOruldu621-130Ufl Uk HealthcareComment on above: Performed By: #### CBC #### [facility] [address] [place] [address] Dr. Hattie NewsomeRBC4.26 106/ulCritically low4.70-6.10The [facility] HealthcareComment on above:Performed By: #### CBC #### [facility] [address] [place] [address] Dr. Hattie NewsomeWBC7.7 103/ulNormal4.0-11.0The [facility] HealthcareComment on above: Performed By: #### CBC #### [facility] [address] [place] [address] Dr. Hattie NewsomeLIPID PROFILEon 16-49-3963HJNF-HDL RATIO NORMSEE BELOWBarney Children's Medical CenterComment on above:Result Comment: 3.3 - 4.4 LOW RISK 4.4 - 7.1 AVERAGE RISK 7.1 - 11.0 MODERATE RISK >11.0 HIGH RISKPerformed By: #### LIPID #### [facility] [address] [place] [address] Dr. Hattie NewsomeCholesterol [Mass/Vol]131 mg/dLNormal<=200[facility] Comment on above:Performed By: #### LIPID #### [facility] [address] [place] [address] Dr. Hattie NewsomeCholesterol in HDL [Mass/Vol]40 mg/fCNbvnoa22-74CkpCorey HospitalComment on above:Performed By: #### LIPID #### [facility] [address] [place] [address] Dr. Hattie NewsomeCholesterol in LDL [Mass/Vol]64.6 mg/dLBarney Children's Medical CenterComment on above:Performed By: #### LIPID #### [facility] [address] [place] [address] Dr. Hattie Dodgeesterthai.total/Cholesterol in HDL [Mass ratio]3.3 {ratio} NormalCorey HospitalComment on above:Performed By: #### LIPID #### [facility] [address] [place] [address] Dr. Hattie Hemphill NORMAL> or = 60 mg/dl - LOW CARDIOVASCULAR RISK <40 mg/dl - HIGH CARDIOVASCULAR RISKBarney Children's Medical CenterComment on above:Performed By: #### LIPID #### [facility] [address] [place] [address] Dr. Hattie NewsomeLDL CALC NORMALSEE BELOWBarney Children's Medical CenterComment on above:Result Comment: <100 mg/dl OPTIMAL 100 - 129 mg/dl NEAR OR ABOVE OPTIMAL 130 - 159 mg/dl BORDERLINE HIGH 160 - 189 mg/dl HIGH >190 mg/dl VERY HIGH Performed By: #### LIPID #### [facility] [address] [place] [address] Dr. Hattie NewsomeTriglyceride [Mass/Vol]132 mg/dLNormal<=150[facility] Comment on above:Performed By: #### LIPID #### [facility] [address] [place] [address] Dr. Hattie NewsomeVLDL CALC26.4 mg/dLNoWestern Reserve HospitalComment on above: Performed By: #### LIPID #### [facility] [address] [place] [address] Dr. Hattie NewsomePARATHYROID HORMONE- RELATED PEPTIDEon 39-42-7854AWKuJ (PTH- Related Peptide)<2.0NoWestern Reserve HospitalComment on above:Result Comment: This test was developed and its performance characteristics determined by [employer]. It has not been cleared or approved [...] contact the laboratory.Performed By: #### PTHP #### [facility] [address] [place] [address] Dr. Hattie NewsomeCBC AUTO DIFFon [id number] #0.1 103/ulNormal0.0-0.1Corey HospitalComment on above:Performed By: #### URIC, CMP, MG #### [facility] [address] [place] [address] Dr. Hattie NewsomeBasophils/100 WBC (Bld)0.9 %Normal0.2-2.0[facility] Comment on above:Performed By: #### URIC, CMP, MG #### [facility] [address] [place] [address] Dr. Hattie Duarte #0.2 103/ulNormal0.0-0.7The [facility] HealthcareComment on above: Performed By: #### URIC, CMP, MG #### [facility] [address] [place] [address] Dr. Hattie Dongosinophils/100 WBC (Bld)3.4 %Normal0.9-7.0[facility] Comment on above:Performed By: #### URIC, CMP, MG #### [facility] [address] [place] [address] Dr. Hattie Dongrythrocyte distribution width (RBC) [Ratio]14.5 %Ngrznm66.0-15.0 [facility] HospitalComment on above:Performed By: #### URIC, CMP, MG #### [facility] [address] [place] [address] Dr. Hattie NewsomeHematocrit (Bld) [Volume fraction]40.1 %Critically low42.0-54.0 The [facility] HealthcareComment on above:Performed By: #### URIC, CMP, MG #### [facility] [address] [place] [address] Dr. Hattie NewsomeHemoglobin (Bld) [Mass/Vol]13.6 g/dLCritically low14.0-18.0The [facility] HealthcareComment on above:Performed By: #### URIC, CMP, MG #### [facility] [address] [place] [address] Dr. Hattie Max #0.04 10e3/ulCritically high0.00-0.03[facility] Comment on above:Performed By: #### URIC, CMP, MG #### [facility] [address] [place] [address] Dr. Hattie Max %0.6 %Critically high0.0-0.5The [facility] HealthcareComment on above:Performed By: #### URIC, CMP, MG #### [facility] [address] [place] [address] Dr. Hattie Priest #0.9 103/ulCritically low1.2-3.8The [facility] Comment on above:Performed By: #### URIC, CMP, MG #### [facility] [address] [place] [address] Dr. Hattie Mendiolamphocytes/100 WBC (Bld)13.1 %Critically low20.5-60.0Corey HospitalComment on above:Performed By: #### URIC, CMP, MG #### [facility] [address] [address] [address] Hattie Chanel DIFF REQNONormalThe Uk HealthcareComment on above: Performed By: #### URIC, CMP, MG #### [facility] [address] [place] [address] Dr. Hattie Jessica (RBC) [Entitic mass]30.9 asFnexhe44.9-34.0The [facility] HealthcareComment on above:Performed By: #### URIC, CMP, MG #### [facility] [address] [place] [address] Dr. Hattie Jessica (RBC) [Mass/Vol]33.9 g/rXHfljhd18.9-35.2The [facility] HealthcareComment on above:Performed By: #### URIC, CMP, MG #### [facility] [address] [place] [address] Dr. Hattie Jessica (RBC) [Entitic vol]91.1 dUYitzxb01.0-94.0The [facility] HealthcareComment on above:Performed By: #### URIC, CMP, MG #### [facility] [address] [place] [address] Dr. Hattie Jeff #0.3 103/ulNormal0.3-0.8The [facility] HealthcareComment on above:Performed By: #### URIC, CMP, MG #### [facility] [address] [place] [address] Dr. Hattie Learyocytes/100 WBC (Bld)5.1 %Normal1.7-12.0[facility] Comment on above:Performed By: #### URIC, CMP, MG #### [facility] [address] [place] [address] Dr. Hattie Choe #5.0 103/ulNormal1.4-6.5The [facility] HealthcareComment on above:Performed By: #### URIC, CMP, MG #### [facility] [address] [place] [address] Dr. Hattie Salgadoutrophils/100 WBC (Bld)76.9 %Critically high43.0-75.0The [facility] HealthcareComment on above:Performed By: #### URIC, CMP, MG #### [facility] [address] [place] [address] Dr. Hattie Walker mean volume (Bld) [Entitic vol]9.0 fLCritically low 9.5-13.5The [facility] HealthcareComment on above:Performed By: #### URIC, CMP, MG #### [facility] [address] [place] [address] Dr. Hattie NewsomePLT160 103/wdRaeaji871-874Hju [facility] HealthcareComment on above: Performed By: #### URIC, CMP, MG #### [facility] [address] [place] [address] Dr. Hattie NewsomeRBC4.40 106/ulCritically low4.70-6.10The [facility] on above:Performed By: #### URIC, CMP, MG #### [facility] [address] [place] [address] Dr. Hattie NewsomeWBC6.5 103/ulNormal4.0-11.0The [facility] on above: Performed By: #### URIC, CMP, MG #### [facility] [address] [place] [address] Dr. Hattie NewsomeMAGNESIUMon 92-25-9354Zwzaqwxad [Mass/Vol]1.8 mg/dLNormal1.8-2.4 The [facility] HealthcareComhelen [facility] on above:Performed By: #### URIC, CMP, MG #### [facility] [address] [place] [address] Dr. Hattie NewsomePROF 14(COMP METB)on 78-78-4065Ofhfdod [Mass/Vol]3.9 g/dLNormal 3.4-5.0The [facility] HealthcareComment on above:Performed By: #### URIC, CMP, MG #### [facility] [address] [place] [address] Dr. Hattie NewsomeAlbumin/Globulin [Mass ratio]1.0 {ratio}NormalThe Cara HospitalComment on above:Performed By: #### URIC, CMP, MG #### [facility] [address] [address] [address] Hattie Govea [Catalytic activity/Vol]136 U/LCritically qfyi32-112Jtu [facility] HealthcareComment on above:Performed By: #### URIC, CMP, MG #### [facility] [address] [place] [address] Dr. Hattie Mejia [Catalytic activity/Vol]122 U/LCritically nqhh79-04Wzv [facility] HealthcareComment on above:Performed By: #### URIC, CMP, MG #### [facility] [address] [place] [address] Dr. Hattie Lugoon gap [Moles/Vol]12.4 mmol/LNormalThe [facility] Comment on above:Performed By: #### URIC, CMP, MG #### [facility] [address] [place] [address] Dr. Hattie He [Catalytic activity/Vol]72 U/LCritically opuk92-92Spf [facility] on above:Performed By: #### URIC, CMP, MG #### [facility] [address] [place] [address] Dr. Hattie NewsomeBilirubin [Mass/Vol]0.5 mg/dLNormal0.2-1.0[facility] Comment on above:Performed By: #### URIC, CMP, MG #### [facility] [address] [place] [address] Dr. Hattie NewsomeCalcium [Mass/Vol]9.1 mg/dLNormal8.5-10.1[facility] Comment on above:Performed By: #### URIC, CMP, MG #### [facility] [address] [place] [address] Dr. Hattie NewsomeChloride [Moles/Vol]106 mmol/VNsylva49-772BsyCorey Hospital Comment on above:Performed By: #### URIC, CMP, MG #### [facility] [address] [place] [address] Dr. Yilan ChangCO2 [Moles/Vol]25.9 mmol/QRdxpji42.0-32.0[facility] Comment on above:Performed By: #### URIC, CMP, MG #### [facility] [address] [place] [address] Dr. Hattie NewsomeCreatinine [Mass/Vol]1.54 mg/dLCritically high0.70-1.30The [facility] HealthcareComment on above:Performed By: #### URIC, CMP, MG #### [facility] [address] [place] [address] Dr. Kuhn ChangEGFR-AF FHNSVVZA76 mL/min/1.16g5Rxhcmqvneg low>=60The [facility] HealthcareComment on above:Performed By: #### URIC, CMP, MG #### [facility] [address] [place] [address] Dr. Hattie DongGFR-NON AF GUGHJCDO53 mL/min/1.30a4Yxnrmigkjs low>=60The [facility] HealthcareComment on above:Performed By: #### URIC, CMP, MG #### [facility] [address] [place] [address] Dr. Hattie NewsomeGlobulin (S) [Mass/Vol]4.0 g/dLNormalThe [facility] HealthcareComment on above:Performed By: #### URIC, CMP, MG #### [facility] [address] [place] [address] Dr. Hattie NewsomeGlucose [Mass/Vol]104 mg/rRPpjbuc65-485JdeCorey Hospital Comment on above:Performed By: #### URIC, CMP, MG #### [facility] [address] [place] [address] Dr. Hattie NewsomePotassium [Moles/Vol]4.3 mmol/LNormal3.5-5.1The [facility] Comment on above:Performed By: #### URIC, CMP, MG #### [facility] [address] [place] [address] Dr. Hattie NewsomeProtein [Mass/Vol]7.9 g/dLNormal6.4-8.2The [facility] Comment on above:Performed By: #### URIC, CMP, MG #### [facility] [address] [address] [address] Hattie Galeanaum [Moles/Vol]140 mmol/FYqxwsb852-343Gzf [facility] Comment on above:Performed By: #### URIC, CMP, MG #### [facility] [address] [address] [address] Hattie Murguia nitrogen [Mass/Vol]14.0 mg/dLNormal7.0-18.0The [facility] HealthcareComment on above:Performed By: #### URIC, CMP, MG #### [facility] [address] [address] [address] Hattie Murguia nitrogen/Creatinine [Mass ratio]9.1 mg/mgNormalThe [facility] HealthcareComment on above:Performed By: #### URIC, CMP, MG #### [facility] [address] [place] [address] Dr. Hattie DONATOon 63-11-0305Dzzvczoxa Ql (U)NegativeNormalNEGATIVECorey HospitalComment on above:Performed By: #### UA #### [facility] [address] [place] [address] Dr. Hattie Shah (U)CLEARNormalCLEARThe [facility] HealthcareComment on above: Performed By: #### UA #### [facility] [address] [place] [address] Dr. Hattie Valera (U)YELLOWNormalYELLOWCorey HospitalComment on above: Performed By: #### UA #### [facility] [address] [place] [address] Dr. Hattie NewsomeGlucose Ql (U)NegativeNormalNEGATIVECorey HospitalComment on above:Performed By: #### UA #### [facility] [address] [place] [address] Dr. Hattie NewsomeHemoglobin Ql (U)NegativeNormalNEGPremier Health [facility] Comment on above:Performed By: #### UA #### [facility] [address] [place] [address] Dr. Hattie Goodwin Ql (U)NegativeNormalNEGATIVEThe [facility] HealthcareComment on above:Performed By: #### UA #### [facility] [address] [place] [address] Dr. Hattie NewsomeLEUKOCYTESNegativeNormalNEGATIVEThe [facility] HealthcareComment on above:Performed By: #### UA #### [facility] [address] [place] [address] Dr. Hattie Kincaidtrprem Ql (U)NegativeNormalNEGATIVEThe [facility] HealthcareComment on above:Performed By: #### UA #### [facility] [address] [place] [address] Dr. Hattie NewsomepH (U)5.5 [pH]Normal5-9The [facility] HealthcareComment on above: Performed By: #### UA #### [facility] [address] [place] [address] Dr. Hattie NewsomeSPEC GRAVITY>=1.064Swyrjitr6.005-<=1.025The [facility] Comment on above:Performed By: #### UA #### [facility] [address] [place] [address] Dr. Hattie Prado PROTEINNegativeNormalNEGATIVE/ TRACEThe [facility] Comment on above:Performed By: #### UA #### [facility] [address] [place] [address] Dr. Hattie Phillipbilinogen Qn (U)1.0 {Xavier'U}/dLNormal0.2 - 1.0The [facility] HealthcareComment on above:Performed By: #### UA #### [facility] [address] [place] [address] Dr. Hattie NewsomeURIC ACID SERUMon 71-93-3103Pxoov [Mass/Vol]6.8 mg/dLNormal 3.5-7.2The [facility] HealthcareComment on above:Performed By: #### URIC, CMP, MG #### [facility] [address] [place] [address] Dr. Hattie Lauren T PROTEIN CREAT RATIOon 41-43-2996Uozpjyg (U) [Mass/Vol] 27.5 mg/dLCritically high<=12.0Core[facility] HospitalComment on above:Performed By: #### URTPCR #### [facility] [address] [place] [address] Dr. Hattie Waldrop PROT CREAT RAT0.15NormalCorey HospitalComment on above: Performed By: #### URTPCR #### [facility] [address] [place] [address] Dr. Hattie Lauren WCQQD207.29 mg/sAIrlikb66.00-300.00[facility] Comment on above:Performed By: #### URTPCR #### [facility] [address] [place] [address] Dr. Hattie NewsomeVITAMIN D 25 OHon 19-95-1061KFV D 25-OH81.5 ng/mLNormalCorey HospitalComment on above:Performed By: #### VITAD #### [facility] [address] [place] [address] Dr. Hattie Beaulieu D RANGESSEE BELOWBarney Children's Medical CenterComment on above: Result Comment: <20 ng/mL Vit D deficient 20 - <30 ng/mL Vit D insufficient 30 - 100 ng/mL Vit D sufficient >100 ng/mL Potential ToxicityPerformed By: #### VITAD #### [facility] [address] [place] [address] Dr. Hattie DongCHOCARDIJamie M/2D COMPLETEon [id number] M/2D COMPLETE Patient: KEL CASTILLO Exam Date: 02/21/2022 : 1955 Gender:M Ordering : DR SARAH TOLLIVER M.D. Admission #: [id number] Family : Order #: [id number] CLICK HERE TO VIEW EXAM ECHOCARDIOGRAM REPORT [...] by: Tio Yepez M.D. on 02/21/2022 at 16:31[facility] CenterNo Panel Informationon 93-49-0586Iahyxncal ClinicBASIC METABOLIC PANELon 97-50-3083Nkxcmut [Mass/Vol]9.2 mg/dLNormal8.6-10.3The [facility] SystemComment on above:Order Comment: No: Do not add to previous draw Performed By: #### 69018, 77576 #### [facility] [address] [place] [address], USAChloride [Moles/Vol]108 mmol/UWwjz79-960Qzj [facility] SystemComment on above:Order Comment: No: Do not add to previous drawPerformed By: #### 52580, 39394 #### [facility] [address] [place] [address], USACO2 [Moles/Vol]26 mmol/HBupsft25-86Awq [facility] SystemComment on above:Order Comment: No: Do not add to previous draw Performed By: #### 08180, 26518 #### [facility] [address] [place] [address], USACreatinine [Mass/Vol]1.64 mg/dLHigh0.70-1.30The [facility] SystemComment on above:Order Comment: No: Do not add to previous drawPerformed By: #### 82337, 25972 #### [facility] [address] [place] [address], USAGFR/1.73 sq M predicted among blacks MDRD (S/P/Bld) [Vol rate/Area]51 ml/min/1.73sq mAbnormal>60The [facility] Comment on above:Order Comment: No: Do not add to previous drawPerformed By: #### 91682, 37594 #### [facility] [address] [place] [address], USAGFR/1.73 sq M predicted among non-blacks MDRD (S/P/Bld) [Vol rate/Area]42 ml/min/1.73sq mAbnormal>60The [facility] SystemComment on above:Order Comment: No: Do not add to previous drawPerformed By: #### 78610, 53723 #### [facility] [address] [place] [address], USAGlucose [Mass/Vol]100 mg/mJKwalvg98-758Axp [facility] SystemComment on above:Order Comment: No: Do not add to previous drawPerformed By: #### 60885, 32110 #### [facility] [address] [place] [address], USAPotassium [Moles/Vol]4.5 mmol/LNormal3.5-5.1The [facility] SystemComment on above:Order Comment: No: Do not add to previous drawPerformed By: #### 76877, 43732 #### [facility] [address] [facility] [place] [address], USASodium [Moles/Vol]139 mmol/AKeityw217-371Pig [facility] SystemComment on above:Order Comment: No: Do not add to previous drawPerformed By: #### 99341, 63340 #### [facility] [address] [facility] [place] [address], USAUrea nitrogen [Mass/Vol]15 mg/dLNormal7-25The [facility] SystemComment on above:Order Comment: No: Do not add to previous drawPerformed By: #### 59704, 96922 #### [facility] [address] [place] [address], USACBC W/DIFFon 85-53-0771GKY BASOPHILS0.1 10*3/uLNormal 0.0-0.2The [facility] SystemComment on above:Order Comment: No: Do not add to previous drawPerformed By: #### 32200, 50812 #### [facility] [address] [facility] [place] [address], USAABS IMM GRANS0.1 10*3/uLNormal0.0-0.2The [facility] SystemComment on above:Order Comment: No: Do not add to previous drawPerformed By: #### 82752, 64527 #### [facility] [address] [address], USAABS NEUTROPHILS5.1 10*3/uLNormal1.6-7.6The [facility] SystemComment on above:Order Comment: No: Do not add to previous drawPerformed By: #### 99630, 71985 #### [facility] [address] [address], USABasophils/100 WBC (Bld)0.8 %Normal0.0-1.0The [facility] SystemComment on above:Order Comment: No: Do not add to previous drawPerformed By: #### 73276, 65725 #### [facility] [address] [place] [address], USAEosinophils (Bld) [#/Vol]0.3 10*3/uLNormal0.0-0.5The [facility] SystemComment on above:Order Comment: No: Do not add to previous drawPerformed By: #### 55361, 17284 #### [facility] [address] [place] [address], USAEosinophils/100 WBC (Bld)3.9 %Normal0.0-6.0The [facility] SystemComment on above:Order Comment: No: Do not add to previous drawPerformed By: #### 76539, 86856 #### [facility] [address] [place] [address], USAErythrocyte distribution width (RBC) [Ratio]14.3 %Normal 11.5-15.0The [facility] SystemComment on above:Order Comment: No: Do not add to previous drawPerformed By: #### 58407, 56377 #### [facility] [address] [place] [address], USAHematocrit (Bld) [Volume fraction]39.0 %Ellnkk62.0-50.0The [facility] SystemComment on above:Order Comment: No: Do not add to previous drawPerformed By: #### 51237, 37348 #### [facility] [address] [place] [address], USAHemoglobin (Bld) [Mass/Vol]12.3 g/dLLow13.0-17.0The [facility] SystemComment on above:Order Comment: No: Do not add to previous drawPerformed By: #### 44986, 00891 #### [facility] [address] [place] [address], USAIMMATURE GRANS0.8 %Normal0.0-1.0The [facility] SystemComment on above:Order Comment: No: Do not add to previous draw Performed By: #### 93998, 03662 #### [facility] [address] [place] [address], USALymphocytes (Bld) [#/Vol]1.2 10*3/uLNormal1.2-4.0The [facility] SystemComment on above:Order Comment: No: Do not add to previous drawPerformed By: #### 67544, 41264 #### [facility] [address] [place] [address], USALymphocytes/100 WBC (Bld)16.1 %Low20.0-45.0The [facility] SystemComment on above:Order Comment: No: Do not add to previous drawPerformed By: #### 76470, 34921 #### [facility] [address] [place] [address], [facility] (RBC) [Entitic mass]29.9 utExpzxc22.0-33.0The [facility] SystemComment on above:Order Comment: No: Do not add to previous drawPerformed By: #### 94900, 59321 #### [facility] [address] [place] [address], [facility] (RBC) [Mass/Vol]31.5 g/dLLow32.0-35.0The [facility] SystemComment on above:Order Comment: No: Do not add to previous drawPerformed By: #### 79435, 76035 #### [facility] [address] [place] [address], [facility] (RBC) [Entitic vol]94.9 sIDvpzsj32.0-98.0The [facility] SystemComment on above:Order Comment: No: Do not add to previous drawPerformed By: #### 36700, 33768 #### [facility] [address] [place] [address], USAMonocytes (Bld) [#/Vol]0.5 10*3/uLNormal0.1-1.0The [facility] SystemComment on above:Order Comment: No: Do not add to previous drawPerformed By: #### 96906, 54891 #### [facility] [address] [place] [address], USAMONOS6.3 %Normal5.0-12.0The [facility] SystemComment on above:Order Comment: No: Do not add to previous drawPerformed By: #### 91450, 45908 #### [facility] [address] [place] [address], USANeutrophils/100 WBC (Bld)72.1 %High40.0-72.0The [facility] SystemComment on above:Order Comment: No: Do not add to previous drawPerformed By: #### 91957, 79635 #### [facility] [address] [place] [address], USANucleated RBC/100 WBC (Bld) [Ratio]0 %Normal0-0The [facility] SystemComment on above:Order Comment: No: Do not add to previous drawPerformed By: #### 20255, 55850 #### [facility] [address] [place] [address], USAPLAT IUB750 10*3/wVPgxmvn717-140Vat [facility] SystemComment on above:Order Comment: No: Do not add to previous draw Performed By: #### 83690, 85465 #### [facility] [address] [facility] [place] [address], USARBC (Bld) [#/Vol]4.11 10*6/uLLow4.20-5.70The [facility] SystemComment on above:Order Comment: No: Do not add to previous drawPerformed By: #### 15890, 55622 #### [facility] [address] [place] [address], USAWBC (Bld) [#/Vol]7.13 10*3/uLNormal4.00-10.60The [facility] SystemComment on above:Order Comment: No: Do not add to previous drawPerformed By: #### 10922, 41442 #### [facility] [address] [place] [address], USAUS ABDOMEN LIMITEDon [id number] ABDOMEN LIMITEDUnCity Hospital Department of Radiology [address] [place] [id number] Patient Name: KEL CASTILLO : 1955 Sex: M Age: Race: White Pt. Location: [id number] Patient Status: I Ordered Date: 10/08/2019 9:30:00 [...] collection. Electronically signed: Brandy Wilson. Transcribed by: [id number], User Resident: BRANDY WILSON Electronically Signed by: BRANDY WILSON @ 10/08/2019 10:13 AM I personally read this/these film(s) with this [facility] HospitalComment on above:Order Comment: No: Do not add to previous drawBASIC METABOLIC PANELon 84-10-9103Kjhnbwu [Mass/Vol]8.7 mg/dLNormal8.6-10.3 The [facility] SystemComment on above:Order Comment: No: Do not add to previous drawPerformed By: #### 16563, 56664 #### [facility] [address] [place] [address], USAChloride [Moles/Vol]111 mmol/ERrkj48-288Pbb [facility] SystemComment on above:Order Comment: No: Do not add to previous drawPerformed By: #### 45446, 24431 #### [facility] [address] [place] [address], USACO2 [Moles/Vol]28 mmol/OKuovwh34-28Beg [facility] SystemComment on above:Order Comment: No: Do not add to previous draw Performed By: #### 74383, 28595 #### [facility] [address] [place] [address], USACreatinine [Mass/Vol]1.59 mg/dLHigh0.70-1.30The [facility] SystemComment on above:Order Comment: No: Do not add to previous drawPerformed By: #### 64933, 74933 #### [facility] [address] [place] [address], USAGFR/1.73 sq M predicted among blacks MDRD (S/P/Bld) [Vol rate/Area]53 ml/min/1.73sq mAbnormal>60The [facility] Comment on above:Order Comment: No: Do not add to previous drawPerformed By: #### 30571, 75415 #### [facility] [address] [place] [address], USAGFR/1.73 sq M predicted among non-blacks MDRD (S/P/Bld) [Vol rate/Area]44 ml/min/1.73sq mAbnormal>60The [facility] SystemComment on above:Order Comment: No: Do not add to previous drawPerformed By: #### 05278, 27254 #### [facility] [address] [place] [address], USAGlucose [Mass/Vol]99 mg/bNFofplp55-849Dwb [facility] SystemComment on above:Order Comment: No: Do not add to previous drawPerformed By: #### 63338, 33210 #### [facility] [address] [place] [address], USAPotassium [Moles/Vol]4.2 mmol/LNormal3.5-5.1The [facility] SystemComment on above:Order Comment: No: Do not add to previous drawPerformed By: #### 20015, 98649 #### [facility] [address] [place] [address], USASodium [Moles/Vol]142 mmol/NAuwyja818-943Zoh [facility] SystemComment on above:Order Comment: No: Do not add to previous drawPerformed By: #### 61222, 95668 #### [facility] [address] [place] [address], USAUrea nitrogen [Mass/Vol]16 mg/dLNormal7-25The [facility] SystemComment on above:Order Comment: No: Do not add to previous drawPerformed By: #### 41546, 83728 #### [facility] [address] [place] [address], [facility]PITALCardiovascular Lab Reporton [id number] Lab ReportUnAvita Health System [facility]: [facility] MR #: [id number] Department of Physician: [facility]rist[place] Division of Service Date: 10/07/2019 Cardiology Birthdate: 1955 Adult Cardiovascular Room #: 5CD [id number] [facility] [address] [place], [place] [address] Cardiovascular Laboratory Report FINAL IMPRESSIONS: 1. Severe 3-vessel [place]vik coronary artery disease. 2. A 2/3 bypass [...] Tolliver M.D. Date Trans: 10/07/2019 02:55 P/mmo DN_JN:[id number] cc: Priyank Hendrickson M.D. [address] [place], [place] [id number] Nayana Bledsoe D. [address] [place] [address]QbsaisRjuCleveland Clinic Lutheran HospitalMAGNESIUM BLOODon [id number] [Mass/Vol]2.1 mg/dLNormal1.9-2.7The [facility] Health SystemComment on above:Order Comment: No: Do not add to previous draw Performed By: #### 43051, 50157 #### [facility] [address] [place] [address], USABASIC METABOLIC PANELon 28-80-6986Sxjmaop [Mass/Vol]8.7 mg/dLNormal8.6-10.3The [facility] Health SystemComment on above:Order Comment: No: Do not add to previous drawPerformed By: #### 09488, 74589 #### [facility] [address] [place] [address], USAChloride [Moles/Vol]110 mmol/GNfvh34-329Lye [facility] SystemComment on above:Order Comment: No: Do not add to previous drawPerformed By: #### 84717, 86276 #### [facility] [address] [place] [address], USACO2 [Moles/Vol]26 mmol/WDykhig38-40Bnw [facility] SystemComment on above:Order Comment: No: Do not add to previous draw Performed By: #### 51215, 26967 #### [facility] [address] [place] [address], USACreatinine [Mass/Vol]1.92 mg/dLHigh0.70-1.30The [facility] Health SystemComment on above:Order Comment: No: Do not add to previous drawPerformed By: #### 72225, 30433 #### [facility] [address] [place] [address], USAGFR/1.73 sq M predicted among blacks MDRD (S/P/Bld) [Vol rate/Area]43 ml/min/1.73sq mAbnormal>60The [facility] Comment on above:Order Comment: No: Do not add to previous drawPerformed By: #### 29999, 58038 #### [facility] [address] [place] [address], USAGFR/1.73 sq M predicted among non-blacks MDRD (S/P/Bld) [Vol rate/Area]35 ml/min/1.73sq mAbnormal>60The [facility] Health SystemComment on above:Order Comment: No: Do not add to previous drawPerformed By: #### 06821, 11130 #### [facility] [address] [place] [address], USAGlucose [Mass/Vol]96 mg/wVYjkgdh55-902Ecj [facility] SystemComment on above:Order Comment: No: Do not add to previous drawPerformed By: #### 04576, 27216 #### [facility] [address] [place] [address], USAPotassium [Moles/Vol]4.4 mmol/LNormal3.5-5.1The [facility] Health SystemComment on above:Order Comment: No: Do not add to previous drawPerformed By: #### 99454, 13778 #### [facility] [address] [place] [address], USASodium [Moles/Vol]140 mmol/XBgdywa475-062Vjw [facility] SystemComment on above:Order Comment: No: Do not add to previous drawPerformed By: #### 19975, 09497 #### [facility] [address] [place] [address], USAUrea nitrogen [Mass/Vol]25 mg/dLNormal7-25The [facility] Health SystemComment on above:Order Comment: No: Do not add to previous drawPerformed By: #### 22775, 77699 #### [facility] [address] [place] [address], USACalcium [Mass/Vol]8.8 mg/dLNormal8.6-10.3The [facility] Health SystemComment on above:Order Comment: No: Do not add to previous drawPerformed By: #### 16759 #### [facility] [address] [place] [address], USAChloride [Moles/Vol]111 mmol/SGjrj40-464Jof [facility] SystemComment on above:Order Comment: No: Do not add to previous drawPerformed By: #### 04810 #### [facility] [address] [place] [address], USACO2 [Moles/Vol]25 mmol/PMtcjhq05-67Bwo [facility] SystemComment on above:Order Comment: No: Do not add to previous draw Performed By: #### 37168 #### [facility] [address] [place] [address], USACreatinine [Mass/Vol]1.94 mg/dLHigh0.70-1.30The [facility] Health SystemComment on above:Order Comment: No: Do not add to previous drawPerformed By: #### 02466 #### [facility] [address] [place] [address], USAGFR/1.73 sq M predicted among blacks MDRD (S/P/Bld) [Vol rate/Area]42 ml/min/1.73sq mAbnormal>60The [facility] Comment on above:Order Comment: No: Do not add to previous drawPerformed By: #### 62874 #### [facility] [address] [place] [address], USAGFR/1.73 sq M predicted among non-blacks MDRD (S/P/Bld) [Vol rate/Area]35 ml/min/1.73sq mAbnormal>60The [facility] SystemComment on above:Order Comment: No: Do not add to previous drawPerformed By: #### 26344 #### [facility] [address] [facility] [place] [address], USAGlucose [Mass/Vol]102 mg/pVRlio20-482Itz [facility] SystemComment on above:Order Comment: No: Do not add to previous drawPerformed By: #### 94483 #### [facility] [address] [place] [address], USAPotassium [Moles/Vol]4.5 mmol/LNormal3.5-5.1The [facility] Health SystemComment on above:Order Comment: No: Do not add to previous drawPerformed By: #### 07426 #### [facility] [address] [place] [address], USASodium [Moles/Vol]140 mmol/TCbsmmi053-807Jkr [facility] SystemComment on above:Order Comment: No: Do not add to previous drawPerformed By: #### 41926 #### [facility] [address] [place] [address], USAUrea nitrogen [Mass/Vol]27 mg/dLHigh7-25The [facility] SystemComment on above:Order Comment: No: Do not add to previous drawPerformed By: #### 95525 #### [facility] [address] [facility]. [place] [id number], [facility] HOSPITALCBC W/DIFFon [id number] BASOPHILS0.1 10*3/uLNormal 0.0-0.2The [facility] Health SystemComment on above:Order Comment: No: Do not add to previous drawPerformed By: #### 48329 #### [facility] [address] [facility] [place] [address], USAABS IMM GRANS0.1 10*3/uLNormal0.0-0.2The [facility] Health SystemComment on above:Order Comment: No: Do not add to previous drawPerformed By: #### 71600 #### [facility] [address] [facility] [place] [address], USAABS NEUTROPHILS4.2 10*3/uLNormal1.6-7.6The [facility] Health SystemComment on above:Order Comment: No: Do not add to previous drawPerformed By: #### 14702 #### [facility] [address] [facility] [place] [address], USABasophils/100 WBC (Bld)0.9 %Normal0.0-1.0The [facility] Health SystemComment on above:Order Comment: No: Do not add to previous drawPerformed By: #### 62535 #### [facility] [address] [facility] [place] [address], USAEosinophils (Bld) [#/Vol]0.3 10*3/uLNormal0.0-0.5The [facility] Health SystemComment on above:Order Comment: No: Do not add to previous drawPerformed By: #### 58860 #### [facility] [address] [facility] [place] [address], USAEosinophils/100 WBC (Bld)4.8 %Normal0.0-6.0The [facility] Health SystemComment on above:Order Comment: No: Do not add to previous drawPerformed By: #### 84380 #### [facility] [address] [place] [address], USAErythrocyte distribution width (RBC) [Ratio]14.3 %Normal 11.5-15.0The [facility] Health SystemComment on above:Order Comment: No: Do not add to previous drawPerformed By: #### 93188 #### [facility] [address] [place] [address], USAHematocrit (Bld) [Volume fraction]37.3 %Low39.0-50.0The [facility] Health SystemComment on above:Order Comment: No: Do not add to previous drawPerformed By: #### 86833 #### [facility] [address] [place] [address], USAHemoglobin (Bld) [Mass/Vol]11.7 g/dLLow13.0-17.0The [facility] Health SystemComment on above:Order Comment: No: Do not add to previous drawPerformed By: #### 02970 #### [facility] [address] [place] [address], USAIMMATURE GRANS1.3 %High0.0-1.0The [facility] Health SystemComment on above:Order Comment: No: Do not add to previous draw Performed By: #### 41725 #### [facility] [address] [place] [address], USALymphocytes (Bld) [#/Vol]1.5 10*3/uLNormal1.2-4.0The [facility] Health SystemComment on above:Order Comment: No: Do not add to previous drawPerformed By: #### 32369 #### [facility] [address] [place] [address], USALymphocytes/100 WBC (Bld)21.8 %Irueif85.0-45.0The [facility] Health SystemComment on above:Order Comment: No: Do not add to previous drawPerformed By: #### 02941 #### [facility] [address] [place] [address], [facility]H (RBC) [Entitic mass]29.5 foLmirlg23.0-33.0The [facility] Health SystemComment on above:Order Comment: No: Do not add to previous drawPerformed By: #### 13633 #### [facility] [address] [place] [address], [facility] HOSPITALMCHC (RBC) [Mass/Vol]31.4 g/dLLow32.0-35.0The [facility] SystemComment on above:Order Comment: No: Do not add to previous drawPerformed By: #### 13864 #### [facility] [address] [place] [address], [facility]V (RBC) [Entitic vol]94.0 qSTfumnb64.0-98.0The [facility] SystemComment on above:Order Comment: No: Do not add to previous drawPerformed By: #### 42845 #### [facility] [address] [place] [address], USAMonocytes (Bld) [#/Vol]0.6 10*3/uLNormal0.1-1.0The [facility] SystemComment on above:Order Comment: No: Do not add to previous drawPerformed By: #### 93744 #### [facility] [address] [place] [address], USAMONOS8.2 %Normal5.0-12.0The [facility] SystemComment on above:Order Comment: No: Do not add to previous drawPerformed By: #### 91509 #### [facility] [address] [place] [address], USANeutrophils/100 WBC (Bld)63.0 %Skatsx61.0-72.0The [facility] Health SystemComment on above:Order Comment: No: Do not add to previous drawPerformed By: #### 23569 #### [facility] [address] [place] [address], USANucleated RBC/100 WBC (Bld) [Ratio]0 %Normal0-0The [facility] Health SystemComment on above:Order Comment: No: Do not add to previous drawPerformed By: #### 01487 #### [facility] [address] [place] [address], USAPLAT [id number] 10*3/eQZpptho615-131Dyp [facility] SystemComment on above:Order Comment: No: Do not add to previous draw Performed By: #### 31176 #### [facility] [address] [place] [address], USARBC (Bld) [#/Vol]3.97 10*6/uLLow4.20-5.70The [facility] Health SystemComment on above:Order Comment: No: Do not add to previous drawPerformed By: #### 33430 #### [facility] [address] [place] [address], USAWBC (Bld) [#/Vol]6.69 10*3/uLNormal4.00-10.60The [facility] SystemComment on above:Order Comment: No: Do not add to previous drawPerformed By: #### 13212 #### [facility] [address] [place] [address], USABASIC METABOLIC PANELon 46-40-2398Ecnbvdj [Mass/Vol]9.7 mg/dLNormal8.6-10.3The [facility] Health SystemComment on above:Order Comment: No: Do not add to previous drawPerformed By: #### 59713, 99531 #### [facility] [address] [place] [address], USAChloride [Moles/Vol]105 mmol/WBzphwy67-800Obo [facility] SystemComment on above:Order Comment: No: Do not add to previous drawPerformed By: #### 40381, 74573 #### [facility] [address] [place] [address], USACO2 [Moles/Vol]25 mmol/YRjwbnj23-55Lnx [facility] SystemComment on above:Order Comment: No: Do not add to previous draw Performed By: #### 25160, 91735 #### [facility] [address] [place] [address], USACreatinine [Mass/Vol]2.13 mg/dLHigh0.70-1.30The [facility] SystemComment on above:Order Comment: No: Do not add to previous drawPerformed By: #### 87345, 05080 #### [facility] [address] [place] [address], USAGFR/1.73 sq M predicted among blacks MDRD (S/P/Bld) [Vol rate/Area]38 ml/min/1.73sq mAbnormal>60The [facility] Comment on above:Order Comment: No: Do not add to previous drawPerformed By: #### 11007, 60182 #### [facility] [address] [place] [address], USAGFR/1.73 sq M predicted among non-blacks MDRD (S/P/Bld) [Vol rate/Area]31 ml/min/1.73sq mAbnormal>60The [facility] SystemComment on above:Order Comment: No: Do not add to previous drawPerformed By: #### 77555, 84289 #### [facility] [address] [place] [address], USAGlucose [Mass/Vol]114 mg/mPVqjt60-000Wbi [facility] SystemComment on above:Order Comment: No: Do not add to previous drawPerformed By: #### 53861, 01429 #### [facility] [address] [place] [address], USAPotassium [Moles/Vol]4.7 mmol/LNormal3.5-5.1The [facility] SystemComment on above:Order Comment: No: Do not add to previous drawPerformed By: #### 53079, 44615 #### [facility] [address] [place] [address], USASodium [Moles/Vol]140 mmol/SYadaau731-904Hor [facility] SystemComment on above:Order Comment: No: Do not add to previous drawPerformed By: #### 73584, 72155 #### [facility] [address] [facility] [place] [address], USAUrea nitrogen [Mass/Vol]32 mg/dLHigh7-25The [facility] SystemComment on above:Order Comment: No: Do not add to previous drawPerformed By: #### 85759, 18208 #### [facility] [address] [facility] [place] [address], [facility] HOSPITALCBC W/DIFFon 79-27-6097CGM BASOPHILS0.1 10*3/uLNormal 0.0-0.2The [facility] Health SystemComment on above:Performed By: #### 96118 #### [facility] [address] [facility] [place] [address], USAABS IMM GRANS0.1 10*3/uLNormal0.0-0.2The [facility] Health SystemComment on above:Performed By: #### 61590 #### [facility] [address] [facility] [place] [address], USAABS NEUTROPHILS6.2 10*3/uLNormal1.6-7.6The [facility] SystemComment on above:Performed By: #### 49870 #### [facility] [address] [facility] [place] [address], USABasophils/100 WBC (Bld)0.7 %Normal0.0-1.0The [facility] Health SystemComment on above:Performed By: #### 82810 #### [facility] [address] [place] [address], USAEosinophils (Bld) [#/Vol]0.3 10*3/uLNormal0.0-0.5The [facility] SystemComment on above:Performed By: #### 49445 #### [facility] [address] [facility] [place] [address], USAEosinophils/100 WBC (Bld)4.0 %Normal0.0-6.0The [facility] Health SystemComment on above:Performed By: #### 07017 #### [facility] [address] [facility] [address], USAErythrocyte distribution width (RBC) [Ratio]14.4 %Normal 11.5-15.0The [facility] Health SystemComment on above:Performed By: #### 26906 #### [facility] [address] [facility] [place] [address], USAHematocrit (Bld) [Volume fraction]39.3 %Nhmmwx76.0-50.0The [facility] Health SystemComment on above:Performed By: #### 90300 #### [facility] [address] [facility] [address], USAHemoglobin (Bld) [Mass/Vol]12.7 g/dLLow13.0-17.0The [facility] Health SystemComment on above:Performed By: #### 61171 #### [facility] [address] [facility] [place] [address], USAIMMATURE GRANS0.8 %Normal0.0-1.0The [facility] Health SystemComment on above:Performed By: #### 61517 #### [facility] [address] [facility] [address], USALymphocytes (Bld) [#/Vol]1.4 10*3/uLNormal1.2-4.0The [facility] SystemComment on above:Performed By: #### 19069 #### [facility] [address] [place] [address], [facility]DI[facility] HOSPITALLymphocytes/100 WBC (Bld)16.6 %Low20.0-45.0The [facility] Health SystemComment on above:Performed By: #### 66097 #### [facility] [address] [facility] [place] [address], [facility]H (RBC) [Entitic mass]30.3 xbWdwris56.0-33.0The [facility] Health SystemComment on above:Performed By: #### 37238 #### [facility] [address] [facility] [place] [address], [facility] HOSPITALMCHC (RBC) [Mass/Vol]32.3 g/iDJlolkh51.0-35.0The [facility] SystemComment on above:Performed By: #### 42646 #### [facility] [address] [facility] [place] [address], [facility] HOSPITALMCV (RBC) [Entitic vol]93.8 hBAhhlgm53.0-98.0The [facility] Health SystemComment on above:Performed By: #### 51267 #### [facility] [address] [facility] [place] [address], USAMonocytes (Bld) [#/Vol]0.4 10*3/uLNormal0.1-1.0The [facility] SystemComment on above:Performed By: #### 01601 #### [facility] [address] [facility] [place] [address], USAMONOS4.9 %Low5.0-12.0The [facility] Health SystemComment on above:Performed By: #### 02068 #### [facility] [address] [facility] [address], USANeutrophils/100 WBC (Bld)73.0 %High40.0-72.0The [facility] Health SystemComment on above:Performed By: #### 04942 #### [facility] [address] [place] [address], USANucleated RBC/100 WBC (Bld) [Ratio]0 %Normal0-0The [facility] Health SystemComment on above:Performed By: #### 11290 #### [facility] [address] [place] [address], USAPLAT CNF165 10*3/yCKiuhfp782-056Vgm [facility] SystemComment on above:Performed By: #### 17792 #### [facility] [address] [place] [address], USARBC (Bld) [#/Vol]4.19 10*6/uLLow4.20-5.70The [facility] SystemComment on above:Performed By: #### 32119 #### [facility] [address] [facility] [place] [address], USAWBC (Bld) [#/Vol]8.53 10*3/uLNormal4.00-10.60The [facility] SystemComment on above:Performed By: #### 76258 #### [facility] [address] [place] [address], USACREATININE URINE RANDOMon 85-44-5564Fssrylkvis [Mass/Vol] 62.0 mg/dLNoCleveland Clinic Lutheran HospitalComment on above:Order Comment: No: Do not add to previous drawResult Comment: There are no established reference values for random urine specimensPerformed By: #### 38668, 07119, 15044 #### [facility] [address] [place] [address], USALIVER BATTERYon 58-30-0423Kicuwrn [Mass/Vol]4.6 g/dLNormal 3.5-5.7The [facility] SystemComment on above:Order Comment: Yes: Add to Previous draw if ablePerformed By: #### 05402, 55204 #### [facility] [address] [place] [address], USAALKALINE DLTCLT71 IU/EHvdshi89-357Dtp [facility] SystemComment on above:Order Comment: Yes: Add to Previous draw if able Performed By: #### 11403, 36594 #### [facility] [address] [place] [address], USAALT [Catalytic activity/Vol]26 U/LNormal7-52The [facility] SystemComment on above:Order Comment: Yes: Add to Previous draw if ablePerformed By: #### 83874, 98677 #### [facility] [address] [place] [address], USAAST [Catalytic activity/Vol]25 U/MBklchc27-52Nig [facility] SystemComment on above:Order Comment: Yes: Add to Previous draw if ablePerformed By: #### 16061, 09433 #### [facility] [address] [place] [address], USABilirubin [Mass/Vol]0.5 mg/dLNormal0.3-1.0The [facility] SystemComment on above:Order Comment: Yes: Add to Previous draw if ablePerformed By: #### 52543, 50419 #### [facility] [address] [place] [address], USABilirubin.direct [Mass/Vol]0.1 mg/dLNormal0.0-0.2The [facility] SystemComment on above:Order Comment: Yes: Add to Previous draw if ablePerformed By: #### 44211, 22247 #### [facility] [address] [place] [address], USAProtein [Mass/Vol]7.6 g/dLNormal6.0-8.3The [facility] SystemComment on above:Order Comment: Yes: Add to Previous draw if ablePerformed By: #### 57474, 36647 #### [facility] [address] [place] [address], USASODIUM URINE RANDOMon 30-73-9227Gndwrm (U) [Moles/Vol]111 mmol/LNormalThe [facility] SystemComment on above:Order Comment: No: Do not add to previous drawResult Comment: There are no established reference values for random urine specimensPerformed By: #### 12975, 46048, 16094 #### [facility] [address] [place] [address], USAUA,MICROSCOPIC REQUIREDon 98-39-2575Wfiijzilfv (U)CLEAR NormalCLEARThe [facility] Health SystemComment on above:Order Comment: No: Do not add to previous drawPerformed By: #### 09556 #### [facility] [address] [place] [address], USABilirubin [Mass/Vol]NegativeNormalNEGATIVEThe [facility] Health SystemComment on above:Order Comment: No: Do not add to previous drawPerformed By: #### 88447 #### [facility] [address] [place] [address], USABLOODNegativeNormalNEGATIVEThe [facility] Health SystemComment on above:Order Comment: No: Do not add to previous drawPerformed By: #### 55749 #### [facility] [address] [place] [address], USAColor (U)YELLOWNormalYELLOWThe [facility] Health SystemComment on above:Order Comment: No: Do not add to previous drawPerformed By: #### 85770 #### [facility] [address] [place] [address], USAEPISOCCNormalFEW,OCC,NONE SEENThe [facility] Health SystemComment on above:Order Comment: No: Do not add to previous draw Performed By: #### 35999 #### [facility] [address] [place] [address], USAGlucose [Mass/Vol]NegativeNormalNEGATIVEThe [facility] Health SystemComment on above:Order Comment: No: Do not add to previous drawPerformed By: #### 30770 #### [facility] [address] [place] [address], USAHYALINE CASTS1 /LPFAbnormalNONE SEENThe [facility] Health SystemComment on above:Order Comment: No: Do not add to previous drawPerformed By: #### 25264 #### [facility] [address] [place] [address], USAKETONENegativeNormalNEGATIVEThe [facility] Health SystemComment on above:Order Comment: No: Do not add to previous draw Performed By: #### 51413 #### [facility] [address] [place] [address], USALEUK ESTERNegativeNormalNEGATIVEThe [facility] Health SystemComment on above:Order Comment: No: Do not add to previous draw Performed By: #### 40816 #### [facility] [address] [place] [address], USANitrite Ql (U)NegativeNormalNEGATIVEThe [facility] Health SystemComment on above:Order Comment: No: Do not add to previous drawPerformed By: #### 12515 #### [facility] [address] [place] [address], USApH (Bld)6.8Bnlpyv5.0-8.0The [facility] Health SystemComment on above:Order Comment: No: Do not add to previous drawPerformed By: #### [id number] #### [facility] [address] [place] [address], USAProtein [Mass/Vol]NegativeNormalNEGATIVEThe Adena Health SystemComment on above:Order Comment: No: Do not add to previous drawPerformed By: #### [id number] #### [facility] [address] [place] [address], USARBC (Bld) [#/Vol]0-2AbnormalNONE SEENThe Adena Health SystemComment on above:Order Comment: No: Do not add to previous drawPerformed By: #### [id number] #### [facility] [address] [place] [address], USASPEC GRAV1.670Mvx6.015-1.020The [facility] Health SystemComment on above:Order Comment: No: Do not add to previous draw Performed By: #### [id number] #### [facility] [address] [place] [address], USAWBC UA0-2AbnormalNONE SEENThe Adena Health SystemComment on above:Order Comment: No: Do not add to previous drawPerformed By: #### [id number] #### [facility] [address] [place] [address], USAUREA NITROGEN URon [id number] nitrogen [Mass/Vol]566 mg/dLNormalThe Adena Health SystemComment on above:Order Comment: No: Do not add to previous drawResult Comment: There are no established reference values for random urine specimensPerformed By: #### [id number], [id number], [id number] #### [facility] [address] [address], USAUS RENALon [id number] RENALUnCity Hospital Department of Radiology [address] [place] [address] Patient Name: KEL CASTILLO : 1955 Sex: M Age: Race: White Pt. Location: [id number] Patient Status: I Ordered Date: 10/05/2019 10:45:00 [...] hydronephrosis. Electronically signed: Madison Castellanos. Transcribed by: [email or web address], User Resident: Electronically Signed by: MADISON CASTELLANOS @ 10/05/2019 03:41 PMNWhite HospitalComment on above:Order Comment: Hydronephrosis Vital Signs Date TimeVital SignValuePerforming AnvvrfytkBwxcwbxq53-38-4883 14:14-0400Body aailki721.6 cmDainez Gant MD Work Phone: [facility]08-21-2025 14:14-0400Body mass index (BMI) [Ratio]26.63 kg/j0JwgpyBill Gant MD Work Phone: [facility]08-21-2025 14:140400Body koehdl47.84 kgDainez Gant MD Work Phone: [facility]08-21-2025 14:14-0400Diastolic blood ajvurqyr20 mm[Hg]Bill Gant MD Work Phone: [facility]08-21-2025 14:14-0400Heart rate59 /min Bill Gant MD Work Phone: [facility]08-21-2025 14:14-1165PmV6% (BldA) [Mass fraction]99 %Bill Gant MD Work Phone: [facility]08-21-2025 14:14-0400Systolic blood zmuzucwu523 mm[Hg]Bill Gant MD Work Phone: [facility]07-30-2025 09:53-0400Body .1 cmMegan Verhoff PA-C Work Phone: [facility] [employer] Vgezvt60-78-1098 09:53-0400Body mass index (BMI) [Ratio]27.12 kg/q4Hviol Verhoff PA-C Work Phone: [facility] [employer] Xqfajm59-56-8647 09:53-0400Body kpumoh32.94 kgMegan Verhoff PA-C Work Phone: [facility] [employer] Huisje21-82-3913 09:53-0400Diastolic blood zygewaty50 mm[Hg]Darrick Verhoff PA-C Work Phone: [facility]07-30-2025 09:53-0400Heart rate 51 /minMegan Verhoff PA-C Work Phone: [facility] [employer] Xebpgo53-76-8810 09:53-0400 Respiratory rate18 /minMegan Verhoff PA-C Work Phone: [facility] [employer] Lvrbgr76-99-3436 09:53-5885HrJ1% (BldA) [Mass fraction]100 %Darrick Verhoff PA-C Work Phone: [facility]07-30-2025 09:53-0400Systolic blood zlavcvbs741 mm[Hg]Darrick Verhoff PA-C Work Phone: [facility]07-21-2025 13:45-0400Body mass index (BMI) [Ratio]25.33 kg/m2Noa Watson [employer]IL[employer] Work Phone: [facility]kguzbcbjn85[facility]-1723 13:45-0400Body temperature 97.3 [degF]Noa Manzoobi [employer]IL[employer]MAN Work Phone: [facility]Tyokbqqsfj15-12-6652 13:45-0400Body ktcppo32.57 kgLisa Simmonsadriano [employer] SIL[employer]MAN Work Phone: [facility]Twdkkkritc51-90-7615 13:45-0400Diastolic blood baazvlgr77 mm[Hg]Noa Manzoobi [employer] SIL[employer]MAN Work Phone: [facility]HealthLplacqzjdr14-81-3762 13:45-0400Heart rate54 /min Noa Watson [employer]IL[employer] Work Phone: [facility]Npgzmtoaps33-59-3214 13:45-0400Respiratory rate18 /minLisa Watson [employer] SILVERMAN Work Phone: [facility]HealthLkwiimuyzb30-36-2334 13:45-0399XtJ0% (BldA) [Mass fraction]97 %Noa Manzoz [employer] SIL[employer]MAN Work Phone: [facility]HealthDpdeejawhn07-97-9367 13:45-0400Systolic blood gwxcreau966 mm[Hg]Noa Manzoz [employer] SIL[employer]MAN Work Phone: [facility]Ydgklguyxb96-00-6668 10:22-0400Body liftzo940.6 cmMegan Verhoff PA-C Work Phone: [facility]06-18-2025 10:22-0400Body mass index (BMI) [Ratio]26.79 kg/n2Iqtmf Verhoff PA-C Work Phone: [facility]06-18-2025 10:22-0400Body epoizu16.3 kgMegan Verhoff PA-C Work Phone: [facility] [employer] Miqizz28-64-6477 10:22-0400Diastolic blood siqdjvqr32 mm[Hg]Darrick Verhoff PA-C Work Phone: [facility] [employer] Ensxhj91-17-8567 10:22-0400Heart rate 57 /minMegan Verhoff PA-C Work Phone: [facility]06-18-2025 10:22-0400 Respiratory rate20 /minMegan Verhoff PA-C Work Phone: [facility] [employer] Owrtfg85-13-4819 10:22-0400Systolic blood exfpafkn414 mm[Hg]Darrick Verhoff PA-C Work Phone: [facility]06-10-2025 16:26-0400Body lhtavv777.1 cm[facility]06[facility] 16:26-0400Body mass index (BMI) [Ratio]27.8 kg/f0NixyctkjzOhio [facility] Hospital06-10-2025 16:26-0400Body tktayt24.74 kg[facility]06-10-2025 16:26-0400Diastolic blood olktjaty43 mm[Hg][facility] 01-19-2025 16:26-0400Heart rate64 /[facility] 01-19-2025 16:26-0400Respiratory rate16 /[facility] 01-19-2025 16:26-9002DmW4% (BldA) [Mass fraction]96 %[facility]06-10-2025 16:26-0400Systolic blood xkllaswz882 mm[Hg][facility]06-10-2025 13:06-0400Body mass index (BMI) [Ratio]25.21 kg/m2Noa Watson [employer] Work Phone: [facility] CenterLgnjpuqbxw53-01-7190 13:06-0400Body temperature 98.49 [degF]Noa Watson [employer] Work Phone: 1(419)547-[address] [place], [place] [address]Udfogctysm45-37-4014 13:06-0400Body puhqet83.21 kgLisa Rigobertohholz [employer] SIL[employer]MAN Work Phone: [facility]Riicisgmhr07-13-2579 13:06-0400Diastolic blood obrjwwqs08 mm[Hg]Noa Aichholz [employer] SIL[employer]MAN Work Phone: [facility]HealthXwrqzzjbkw55-36-3301 13:06-0400Heart rate66 /min Noa Aichholz HEAD SIL[employer]MAN Work Phone: [facility]HealthTtzniucuab99-18-3258 13:06-0400Respiratory rate18 /minLisa Aichholz HEAD SILVERMAN Work Phone: [facility]HealthZrkqeoheeh58-55-2381 13:06-5364WeC0% (BldA) [Mass fraction]96 %Noa Aichholz [employer] SIL[employer]MAN Work Phone: [facility]HealthXyprxjelbz43-12-6857 13:06-0400Systolic blood qnhjveuf620 mm[Hg]Noa Aichholz [employer] SIL[employer]MAN Work Phone: [facility]HealthEiwgqryvvx69-42-5559 13:03-0400Body mass index (BMI) [Ratio]25.21 kg/m2Lisa Aichholz HEAD SIL[employer]MAN Work Phone: [facility]HealthLmbvwfshyu66-45-9212 13:03-0400Body temperature 98.71 [degF]Noa Rigobertohholz HEAD SILVERMAN Work Phone: [facility]HealthUivvrogckx58-34-9727 13:03-0400Body aezetd97.21 kgLisa Aichholz HEAD SIL[employer]MAN Work Phone: [place] [address]Donkihperp11-26-5442 13:03-0400Diastolic blood mfhxsuvd00 mm[Hg]Noa Aichholz [employer]MAN Work Phone: [place] [address]Jhdqqpywks05-16-7153 13:03-0400Heart rate67 /min Noa Aichholz [employer]IL[employer] Work Phone: [place] [address]Uxhgjcvfcu29-91-6505 13:03-0400Respiratory rate18 /minLisa Aichholz HEAD SIL[employer]MAN Work Phone: [facility]HealthEadzzntwnw49-24-6256 13:03-5504FmJ3% (BldA) [Mass fraction]96 %Noa Shirley [employer]IL[employer] Work Phone: [facility]HealthThovmjdhnx39-95-8673 13:03-0400Systolic blood gxiwnynf722 mm[Hg]Noa Simmonsadriano [employer] SIL[employer]MAN Work Phone: [facility]Hoovtdcbzc19-17-2316 15:59-0400Body dbldho898.1 cm[facility]03-18-2025 15:59-0400Body mass index (BMI) [Ratio]27.8 kg/p3LotxvozojOhio Valley Hospital03-18-2025 15:59-0400Body sjoslp91.8 kgOhio [facility]03-18-2025 15:59-0400Diastolic blood casdljgo78 mm[Hg][facility]03-18-2025 15:59-0400 Heart rate56 /[facility]03-18-2025 15:59-0400 Respiratory rate16 /[facility]03-18-2025 15:59-0400 SaO2% (BldA) [Mass fraction]95 %[facility]03-18-2025 15:59-0400Systolic blood emamzmww772 mm[Hg][facility] 10-12-2024 11:22-0500Body .1 cmAmanda Mandeep Latasha DO Work Phone: [facility]03-03-2025 11:22-0500Body mass index (BMI) [Ratio]28.29 kg/o0Mofvze Mandeep Latasha DO Work Phone: [facility]03-03-2025 11:22-0500Body edsyrr42.1 kgAmanda Mandeep Latasha DO Work Phone: [facility]03-03-2025 11:22-0500Diastolic blood zayxvmks72 mm[Hg]Eun Mandeep Latasha DO Work Phone: [facility]03-03-2025 11:22-0500Heart rate58 /min Eun Mandeep Latasha DO Work Phone: [facility]03-03-2025 11:22-0500Systolic blood ibelosau061 mm[Hg]Eun Black DO Work Phone: [facility]02-27-2025 13:45-0500Body mass index (BMI) [Ratio]25.82 kg/m2Noa Watson [employer]IL[employer] Work Phone: [facility]HealthCzwhhtrucx48-43-6177 13:45-0500Body temperature 98.1 [degF]Noa Shirley [employer]IL[employer]MAN Work Phone: [facility]HealthYfzcioxlef54-53-4438 13:45-0500Body tixarn98.02 kgNelly Shirley HEAD SIL[employer]MAN Work Phone: [facility]HealthJrboqnkcsy48-11-3840 13:45-0500Diastolic blood jotgfvcl95 mm[Hg]Noa Shirley [employer]IL[employer]MAN Work Phone: [facility]Ntfiwiiiue09-64-0228 13:45-0500Heart rate51 /min Noa Shirley [employer]IL[employer]MAN Work Phone: [facility]HealthXupgrmyzke17-54-1614 13:45-0500Respiratory rate18 /minLi Rigobertorandolphadriano HEAD SIL[employer]MAN Work Phone: [facility]Bbbbuwipqs26-61-5648 13:45-4520IyJ0% (BldA) [Mass fraction]97 %Noa Shirley [employer] Work Phone: [facility]HealthDqrhsmdvxp14-77-4986 13:45-0500Systolic blood zdlwydrk532 mm[Hg]Noa Shirley [employer]IL[employer]MAN Work Phone: [facility]HealthLhegzaqdpd28-31-9688 13:13-0500Body fhnenb350.7 cmBrharmeet Coronado [employer] SIL[employer]MAN Work Phone: [facility]HealthZezkttjlel92-68-7127 13:13-0500Body mass index (BMI) [Ratio]27.55 kg/q6EgmktdvxJayy Pollocktrick [employer]IL[employer]MAN Work Phone: [facility]HealthNbudlqtigy75-36-9741 13:13-0500Body temperature 96.6 [degF]Jayy Pollocktrick [employer] SIL[employer]MAN Work Phone: [facility]HealthIgjfiurrba11-40-8094 13:13050Body neewmy04.19 kgaJyy Padillapatrick HEAD SIL[employer]MAN Work Phone: [facility]HealthPzahkppgol52-06-4712 13:13-0500Diastolic blood khsodgwt89 mm[Hg]Jayy Padillapatrick [employer]IL[employer]MAN Work Phone: [place] [address]Yrfodmjyhd54-09-7764 13:13-0500Heart rate57 /min Jayy Pollocktrick HEAD SIL[employer]MAN Work Phone: [facility]HealthHzyuukrehr78-57-1483 13:130500Respiratory rate16 /minJayy Padillapatrick HEAD SIL[employer]MAN Work Phone: [place] [address]Jjhybgzxhd30-56-3834 13:137478CrZ1% (BldA) [Mass fraction]94 %Jayy Padillapatrick [employer] SIL[employer]MAN Work Phone: [facility]HealthViwrtwzzqf89-56-2316 13:13050Systolic blood gkmjnfag679 mm[Hg]Jayy Pollocktrick HEAD SIL[employer]MAN Work Phone: [facility]HealthPmvebysskb93-83-2634 09:36-0400Body igcfcm077.6 cmAmanda Mandeep Davilaon DO Work Phone: [facility]09-23-2024 09:36-0400Body mass index (BMI) [Ratio]28.64 kg/g7Nahxvp Mandeep Latasha DO Work Phone: [facility]09-23-2024 09:36-0400Body ajmxju80.5 kgAmanchevy Mandeep Latasha DO Work Phone: [place] [address]-23-2024 09:36-0400Diastolic blood fsuaowvy96 mm[Hg]Eun Mandeep Latasha DO Work Phone: [place] [address]-23-2024 09:36-0400Heart rate57 /min Eun Black DO Work Phone: [facility]09-23-2024 09:36-0400Systolic blood mm[Hg]Eun Black DO Work Phone: [facility]08-20-2024 13:00-0400Body ionfec274.64 cm[facility]08-20-2024 13:00-0400Body mass index (BMI) [Ratio]29.4 kg/v5QzwmfumyaOhio Valley Hospital08-20-2024 13:00-0400Body iolzrcdrxxc87 [degF][facility]08-20-2024 13:00-0400Body .72 kg[facility]08-20-2024 13:00-0400Diastolic blood qkhjhoqs10 mm[Hg][facility]08-20-2024 13:00-0400 Heart rate58 /[facility]08-20-2024 13:00-0400 Respiratory rate18 /[facility]08-20-2024 13:00-0400 SaO2% (BldA) [Mass fraction]97 %[facility]08-20-2024 13:00-0400Systolic blood gozdhuxo048 mm[Hg][facility] 09-19-2023 13:53-0500Body .7 Waldemar Grimes MD Work Phone: [facility]HealthMujwqftmhu53-44-2377 13:53-0500Body mass index (BMI) [Ratio]28.43 kg/q6KavvczShaikh Cornelio LEMON Work Phone: [facility]HealthCjbuljqpei81-08-1120 13:53-0500Body temperature 97.5 [degF]Shaikh Cornelio LEMON Work Phone: [facility]HealthHytcwzydwg11-62-0802 13:53-0500Body .82 kgShaikh Cornelio LEMON Work Phone: [facility]HealthRgypkxkbso69-08-5208 13:53-0500Diastolic blood zoerfjil73 mm[Hg]Shaikh Cornelio LEMON Work Phone: ZingkuOfeisjthpv49-29-9436 13:53-0500Heart rate59 /min Shaikh Cornelio LEMON Work Phone: noBerstVxsrujmffg33-25-5315 13:53-7442YwU8% (BldA) [Mass fraction]95 %Shaikh Cornelio LEMON Work Phone: noBerstHvfbvcylqg15-72-2148 13:53-0500Systolic blood gobwzfrb746 mm[Hg]Shaikh Cornelio LEMON Work Phone: ZingkuEoklegyvmg48-97-0021 10:00-0400Body omxzyv547.64 cmAalisonobi Toscano Other [employer] Other 06-16-2023 10:00-0400Body mass index (BMI) [Ratio] 31.57 kg/m2Hanna Mando Other [employer] Other 06-16-2023 10:00-0400Body beurnvkhjhp91.2 [degF]Hanna Ortizcatarina Other [employer] Other 06-16-2023 10:00-0400Body .72 kgHanna Wesholden Other [employer] Other 06-16-2023 10:00-0400Diastolic blood huskhipi79 mm[Hg] Hanna Wesholden Other [employer] Other 06-16-2023 10:00-0400Respiratory rate20 /minHanna Mando Other [employer] Other 06-16-2023 10:00-4647GfB0% (BldA) [Mass fraction]98 % Hanna Toscano Other [facility] [employer] Other 732508-08-8870 10:00-0400Systolic blood sxzysscb193 mm[Hg] Hanna Toscano Other [place] [employer] Other 398494-05-3695 15:40-0500Body xrxdbo697.6 cmAmanda Mandeep DO Work Phone: [facility]01-04-2023 15:40-0500Body .81 kgAmanda Mandeep DO Work Phone: [facility]01-04-2023 15:40-0500Diastolic blood hwdrnuch89 mm[Hg]Eun Mandeep DO Work Phone: [facility]01-04-2023 15:40-0500Heart rate61 /min Eun Mandeep DO Work Phone: [facility]01-04-2023 15:40-0179WeJ2% (BldA) [Mass fraction]100 %Eun Mandeep DO Work Phone: [facility]01-04-2023 15:40-0500Systolic blood mwpmpvet678 mm[Hg]Eun Mandeep DO Work Phone: [facility]11-29-2022 14:40-0500Body lxwypg544.64 Jean Paul Mando Other [facility] [employer] Other 11-29-2022 14:40-0500Body mass index (BMI) [Ratio] 31.95 kg/m2Hanna Wesholden Other [place] [employer] Other 11-29-2022 14:40-0500Body jvevrv14.81 kgHanna Mando Other [place] [employer] Other 11-29-2022 14:40-0500Diastolic blood mm[Hg] Hanna Toscano Other [employer] Other 11-29-2022 14:40-2168OcN8% (BldA) [Mass fraction]95 % Hanna Toscano Other [employer] Other 11-29-2022 14:40-0500Systolic blood dopffqhh011 mm[Hg] Hanna Toscano Other [employer] Other 10-25-2022 16:30-0400Body .64 [facility] Mabel Other [employer] Other 10-25-2022 16:30-0400Body mass index (BMI) [Ratio] 32.12 kg/k0Jzfrt [facility]car[facility] Other [employer] Other 10-25-2022 16:30-0400Body wzstqewuwwq37.5 [degF][facility] Other [employer] Other 10-25-2022 16:30-0400Body jpjvhu39.27 [facility] Other [employer] Other 10-25-2022 16:30-0400Diastolic blood smdobbep53 mm[Hg] [facility]onde[facility] Other [employer] Other 10-25-2022 16:30-0400Respiratory rate20 /minNov[facility]caronde[facility] Other [employer] Other 10-25-2022 16:30-7358UgD9% (BldA) [Mass fraction]96 % Corona Monroe Other [employer] Other 10-25-2022 16:30-0400Systolic blood gzrpylwx680 mm[Hg] Corona Monroe Other [employer] Other 08-30-2022 09:44-0400Body oyzcsk581.1 cmAmanda Mandeep DO Work Phone: [facility]08-30-2022 09:44-0400Body jgetnl68.68 kgAmanchevy Mandeep DO Work Phone: [facility]08-30-2022 09:44-0400Diastolic blood mojunngr05 mm[Hg]Eunsotero Mccrayok DO Work Phone: [facility]08-30-2022 09:44-0400Heart rate57 /min Eunsotero Mccrayok DO Work Phone: [facility]08-30-2022 09:44-0400Systolic blood mm[Hg]Eun Kaufman DO Work Phone: [facility]07-19-2022 15:30-0400Body eeezre596.64 cmCorona Monroe Other [employer] Other 07-19-2022 15:30-0400Body mass index (BMI) [Ratio] 31.95 kg/u7XzgfvCorona Monroe Other [employer] Other 07-19-2022 15:30-0400Body lfpkovkmvub49.9 [degF]Corona Monroe Other [employer] Other 07-19-2022 15:30-0400Body zelaeh21.81 kgCorona Casesoila Other [employer] Other 07-19-2022 15:30-0400Diastolic blood zjyxadzu00 mm[Hg] Corona Monroe Other [employer] Other 07-19-2022 15:30-0400Respiratory rate20 /minCorona Monroe Other [employer] Other 07-19-2022 15:30-4192DpJ2% (BldA) [Mass fraction]97 % Corona Monroe Other [employer] Other 07-19-2022 15:30-0400Systolic blood tuxbkucg861 mm[Hg] Corona Monroe Other [employer] Other 06-20-2022 12:00-0400Body ykdntx889.64 cmLuis Fernandotiburcio Suazo Other [employer] Other 06-20-2022 12:00-0400Body mass index (BMI) [Ratio] 32.84 kg/j4LwhjdCristo Suazo Other [employer] Other 06-20-2022 12:00-0400Body rqhkyi91.31 kgCristo Lambahan Other [employer] Other 06-20-2022 12:00-0400Diastolic blood dipsmiqm69 mm[Hg] Cristo Suazo Other [employer] Other 06-20-2022 12:00-0400Respiratory rate18 /minCristo Lambahan Other [employer] Other 06-20-2022 12:00-8991TwX3% (BldA) [Mass fraction]98 % Cristo Suazo Other [employer] Other 06-20-2022 12:00-0400Systolic blood mm[Hg] Cristo Suazo Other [employer] Other 05-17-2022 17:00-0400Body ximwki255.64 cmCristo Suazo Other [employer] Other 05-17-2022 17:00-0400Body mass index (BMI) [Ratio] 31.15 kg/m8JgjuyCristo Suazo Other [employer] Other 05-17-2022 17:00-0400Body cncyge36.54 kgCristo Suazo Other [employer] Other 05-17-2022 17:00-0400Diastolic blood alflakzs06 mm[Hg] Cristo Suazo Other [employer] Other 05-17-2022 17:00-0400Respiratory rate18 /minCristo Suazo Other [employer] Other 05-17-2022 17:00-3389GbC2% (BldA) [Mass fraction]95 % Cristo Suazo Other [employer] Other 05-17-2022 17:00-0400Systolic blood qahrqbcz274 mm[Hg] Cristo Suazo Other [employer] Other 05-13-2022 08:25-0400Body pmqifn324.1 Justin Bright MD Work Phone: [place] [address]-13-2022 08:25-0400Body xypvrw41.68 kgJessie Bright MD Work Phone: [facility] HospitalQecujw00-71-0238 08:25-0400Diastolic blood mm[Hg]Jessie Bright MD Work Phone: c[facility] HospitalVsupey15-19-4461 08:25-0400Heart rate59 /min Jessie Bright MD Work Phone: c[facility] HospitalRdurqb53-93-0317 08:25-0400Systolic blood imvprtts917 mm[Hg]Jessie Bright MD Work Phone: c[facility] HospitalVptoik36-24-3718 15:40-0400Body .64 cmEricky Triana Other [employer] Other 10-12-2021 15:40-0400Body mass index (BMI) [Ratio] 30.84 kg/f5JslmwReuben Triana Other [employer] Other 10-12-2021 15:40-0400Body qyzbwcqyxaz23.3 [degF]Reuben Triana Other [employer] Other 10-12-2021 15:40-0400Body .68 kgReuben Triana Other [employer] Other 10-12-2021 15:40-0400Diastolic blood eposfcjv82 mm[Hg] Reuben Triana Other [employer] Other 10-12-2021 15:40-0400Respiratory rate18 /minEricky Triana Other [employer] Other 10-12-2021 15:40-6927GoG7% (BldA) [Mass fraction]94 % Reuben Triana Other [facility] [employer] Other 849450-25-9659 15:40-0400Systolic blood inmouuai002 mm[Hg] Reuben Triana Other [facility] [employer] Other Encounters Encounter DateEncounter TypeCare ProviderFacilityStart: 17-42-4506Otoeokwdp department patient visitBELMcKitrick Hospitaltart: 06-15-2025 End: 34-18-1820Erzvjvzwdv and management of inpatientMUNIER NAZZALUniversSelect Medical TriHealth Rehabilitation Hospitaltart: 97-58-2843owgdkwvvazVLMOGSECorey Hospitaltart: 06-12-2025 End: 99-92-0505Tqsavxwil department patient visitNAEL [facility] Health Systemtart: 52-10-8318Keklrnohqj and management of inpatientKELLILYN RUSniversSelect Medical TriHealth Rehabilitation Hospitaltart: 78-02-7590Chsgxqesa for other preprocedural examinationMUNIER NACinc[facility] Medical Centertart: 06-07-2025 End: 01-96-6602Kdcghitwe for other preprocedural examinationMUNIER [facility] Daytontart: 06-07-2025 End: 83-44-3166Akfypmvyuk and management of inpatientMUNIER NAZZALUniversSelect Medical TriHealth Rehabilitation Hospitaltart: 99-33-6898ebdztpfqagCGQVTJUUniversity Hospitals Geauga Medical Centertart: 66-14-0616yzuyttkancJAMJRRZUniversity Hospitals Geauga Medical Centertart: 05-26-2025 End: 66-75-9578qvkgwcjxksWLIET ALAAultman Orrville Hospitaltart: 41-31-6353qobgaaipegMQOQJQQUniversity Hospitals Geauga Medical Centertart: 05-24-2025 End: 25-76-2993gclitvqyigMTDTBTTSt. [facility] Start: 05-11-2025 End: 49-89-3600qpktyjnbfiYWLUNationwide Children's Hospitaltart: 04-29-2025 End: 13-78-6276amhgvlgdlzHEHALZ MOOK ROLONFacility:[facility] Start: 04-21-2025 End: 58-06-5985zjzuiwcfygNBFYYQWright-Patterson Medical Centertart: 04-15-2025 End: 56-79-1199dvxbevjpnoPQHAFQWright-Patterson Medical Centertart: 04-08-2025 End: 28-52-6596qtwktofettLTHBNationwide Children's Hospitaltart: 04-05-2025 End: 91-40-5727Gtccvtovw encounterDainez Gant MD Work Phone: [facility] AkronComment on above:Drencher - OtherStart: 04-05-2025 End: 07-76-6870zbnffcesvoGKDCJ A CUTLEROhioHealth Doctors Hospitaltart: 04-02-2025 End: 71-12-0198Jkznst-up encounterDainez Gant MD Work Phone: [facility] AkronComment on above:ResultsStart: 04-01-2025 End: 33-34-1377qwjddlplzfDHUNI A CUTLERFacility:[facility] GeneralStart: 04-01-2025 End: 87-74-4610Oromwfd encounter procedureBill Gant MD Work Phone: pp[facility] Cardiology AkronComment on above: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 (Primary Dx); Hx of CABG; Primary hypertension; Mixed hyperlipidemia; CRI (chronic renal insufficiency), stage 4 (severe) (HCC); PAD (peripheral artery disease); Other emphysema (HCC); Non-rheumatic mitral regurgitation; ROMAN (dyspnea on exertion); MCI (mild cognitive impairment)Start: 04-01-2025 End: 50-28-8497wtcaakfgbxIQYCM A CUTLERFacility:[facility] GeneralStart: 04-01-2025 End: 07-19-4372Jihgrakkr Result EncounterGeneric External Data ProviderNOMS External Department UnsolicitedStart: 04-01-2025 End: 82-94-0563Fmogujide Result EncounterGeneric External Data ProviderNOMS External Department UnsolicitedStart: 04-01-2025 End: 48-06-6214aakvvcguhpZFODXMadera Community Hospital HospitalStart: 03-11-2025 End: 83-84-2683Npewqgazj Result EncounterGeneric External Data ProviderNOMS External Department UnsolicitedStart: 03-11-2025 End: 50-95-6551Duletbbmo Result EncounterGeneric External Data ProviderNOMS External Department UnsolicitedStart: 03-10-2025 End: 16-41-6443Ziwqzw outpatient visit 25 minutesDarrick [place] PA-C Work Phone: [facility] ClinicComment on above:Cervical spondylosis (Primary Dx)Start: 03-10-2025 End: 06-69-8629cqtvenfxjwZHZPUMadera Community Hospital HospitalStart: 03-01-2025 End: 75-82-2731Mbpzdk flowsheetNellysa Anaisz [employer] Work Phone: noMS CWM FMStart: 03-01-2025 End: 78-38-8075Ofqpsu flowsheetLisa Aichholz [employer]MAN Work Phone: noMS CWM FMStart: 03-01-2025 End: 85-59-8493rozqmgljkuHYUV AICHHOLDAVONot AvailableStart: 03-01-2025 End: 70-79-2728Sypjdr outpatient visit 25 minutesLisa Shirley [employer]MAN Work Phone: noms CW FMComment on above:Cervical spondylosis (Primary Dx); Chronic diastolic heart failure (HCC); Primary hypertension ; 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 ; Chronic kidney disease, stage 4 (severe) (HCC); Pulmonary hypertension (HCC); EDITH (generalized anxiety disorder) ; Other hyperlipidemia ; Neck pain; Recurrent major depression in partial remission ; Gastroesophageal reflux disease without esophagitis; Chronic obstructive pulmonary disease, unspecified COPD type (HCC)Start: 02-19-2025 End: 66-08-8419Hjncejqmd Result EncounterGeneric External Data ProviderNOMS External Department UnsolicitedStart: 02-19-2025 End: 00-68-8465Dpalhafnl Result EncounterGeneric External Data ProviderNOMS External Department UnsolicitedStart: 02-19-2025 End: 78-97-3341mxyycbenlvHUABRXJ Yeimy [facility] HospitalStart: 02-18-2025 End: 85-83-5749Fynurnayo Result EncounterGeneric External Data ProviderNOMS External Department UnsolicitedStart: 02-18-2025 End: 05-35-0199Xratvjbuh Result EncounterGeneric External Data ProviderNOMS External Department UnsolicitedStart: 01-27-2025 End: 41-21-3511Prkngm outpatient new 45 minutesDarrick Cannon PA-C Work Phone: [facility] ClinicComment on above:Cervical spondylosis (Primary Dx)Start: 01-27-2025 End: 13-30-2629bgleciwopbLMTIH N VERHOFFWooster Community Hospital HospitalStart: 01-19-2025 End: 21-34-0642Jcnwmnw encounter procedureNovant Health [facility] Neph[facility] Adilson Work Phone: Start: 01-19-2025 End: 12-38-6378Rtcmfw flowsHemant Watson HEAD SILVERMAN Work Phone: noms CWM FMStart: 01-19-2025 End: 08-67-5667Qbgpmb flowsheetNoa Watson HEAD SILVERMAN Work Phone: noms CWM FMStart: 01-19-2025 End: 14-02-1266swlwvcrtfgKCVF AICHHOLZKindred Hospital [facility] Work Phone: Start: 01-19-2025 End: 52-44-2541Gbieew outpatient visit 25 minutesLisa Watson HEAD SILVERMAN Work Phone: noms CWM FMComment on above:Cervical spondylosis (Primary Dx); Neck pain; Primary hypertension (CMS/HCC); Chronic kidney disease, stage 4 (severe) (CMS/HCC); EDITH (generalized anxiety disorder) (CMS/HCC); H/O: lung cancer; MCI (mild cognitive impairment)Start: 53-45-5033ajtfrylprtCYSUHealthSource Saginawtart: 51-45-8628miczmifvweBOQPHealthSource Saginawtart: 01-11-2025 End: 40-79-1216efurqhupwnMQKK Xavi WATSONMadison Healthca [facility] Centertart: 01-07-2025 End: 78-46-3443Piqjof OnlyNoa Watson HEAD SILVERMAN Work Phone: noms CWM FMComment on above:Neck pain (Primary Dx) Start: 12-24-2024 End: 37-60-8115EywxbzSely Aichholz HEAD SILVERMAN Work Phone: noms CWM FMComment on above:Primary hypertension (CMS/HCC); Other hyperlipidemia; Neck pain; Recurrent major depression in partial remission (HCC) (CMS/HCC); 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 (CMS/HCC); Gastroesophageal reflux disease without esophagitis; Chronic obstructive pulmonary disease, unspecified COPD type (CMS/HCC); EDITH (generalized anxiety disorder) (CMS/HCC)Start: 12-07-2024 End: 39-47-9894SrswioDann Aichholz HEAD SILVERMAN Work Phone: noms CWM FMComment on above:Other hyperlipidemia; 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 (CMS/HCC); Primary hypertension (CMS/HCC); Recurrent major depression in partial remission (HCC) (CMS/HCC); EDITH (generalized anxiety disorder) (CMS/HCC)Start: 12-01-2024 End: 24-66-7948DkvlemRvni Aichholz HEAD SILVERMAN Work Phone: noms CWM FMComment on above:EDITH (generalized anxiety disorder) (CMS/HCC) (Primary Dx)Start: 11-19-2024 End: 62-77-0927Upqtpx flowsheetLisa Simmonsholz HEAD SILVERMAN Work Phone: NOMS CWM FMStart: 11-19-2024 End: 49-50-4045Uhwxab flowsheetLisa Aichholz HEAD SILVERMAN Work Phone: noms CWM FMStart: 11-19-2024 End: 66-54-6897Qdglad outpatient visit 25 minutesLisa Irisholz HEAD SILVERMAN Work Phone: NOMS CWM FMComment on above:Neck pain (Primary Dx); Primary hypertension (CMS/HCC); Chronic kidney disease, stage 4 (severe) (CMS/HCC); EDITH (generalized anxiety disorder) (CMS/HCC); Functional gait abnormality; MCI (mild cognitive impairment)Start: 11-19-2024 End: 75-94-5099esiosilctrDPXO JULIANAot AvailableStart: 11-13-2024 End: 41-86-4070IgpqujAohy Aichholz HEAD SILVERMAN Work Phone: noMS CWM FMComment on above:Primary hypertension (CMS/HCC); Other hyperlipidemia; Recurrent major 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) (CMS/HCC); 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 (CMS/HCC); Gastroesophageal reflux disease without esophagitis; EDITH (generalized anxiety disorder) (CMS/HCC)Start: 11-12-2024 End: 38-45-1585FogujmEcba Rigobertohholz HEAD SILVERMAN Work Phone: NOMS CWM FMComment on above:Primary hypertension (CMS/HCC); Other hyperlipidemia; Recurrent major depression in partial remission (HCC) (CMS/HCC); 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 (CMS/HCC); Gastroesophageal reflux disease without esophagitis; EDITH (generalized anxiety disorder) (CMS/HCC)Start: 11-09-2024 End: 96-68-3977SjwozdPxyw Aichholz HEAD SILVERMAN Work Phone: NOMS CWM FMComment on above:Other hyperlipidemia (CMS/HCC); EDITH (generalized anxiety disorder) (CMS/HCC); Recurrent major 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) (CMS/HCC)Start: 10-27-2024 End: 87-96-9093myzhfyajglItgsdumilMemorial Health System [facility] Work Phone: Start: 10-27-2024 End: 46-85-7197Pojxmst encounter procedureNovant [facility] Nephrology Adilson Work Phone: Start: 10-20-2024 End: 82-78-0955fmrlvyaxlgCRGAOhioHealth Dublin Methodist Hospitaltart: 10-13-2024 End: 66-85-3099bndjwwvqhlUDJEHocking Valley Community Hospitaltart: 10-12-2024 End: 33-04-5293ubbzvcgqjcIFNYFM MOOK ROLONFacility:[facility] Start: 10-12-2024 End: 37-12-2319Zdmjhqe encounter procedureEun Black DO Work Phone: NeurologyComment on above:Gait abnormality (Primary Dx); Memory loss; Neck painStart: 10-08-2024 End: 89-47-9843Bcewdp flowsheetLisa Aichholz HEAD SILVERMAN Work Phone: NOMS CWM FMStart: 10-08-2024 End: 97-64-2680Xtggih flowsheetLisa Aichholz HEAD SILVERMAN Work Phone: noMS CWM FMStart: 10-08-2024 End: 83-93-9070tdrdpmqxrlSLJQ AICHHOLZNot AvailableStart: 10-08-2024 End: 76-12-8237Gtjcwb outpatient visit 25 minutesLisa Anaisz HEAD SILVERMAN Work Phone: noMS CWM FMComment on above:Primary hypertension (CMS/HCC) (Primary Dx); Chronic obstructive pulmonary disease, unspecified (CMS/HCC); Chronic kidney disease, stage 4 (severe) (CMS/HCC); 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 (CMS/HCC); Gastroesophageal reflux disease without esophagitis; EDITH (generalized anxiety disorder) (CMS/HCC); Recurrent major depressive disorder, in full remission (CMS/HCC); Mixed hyperlipidemia (CMS/HCC); MCI (mild cognitive impairment); Other hyperlipidemia (CMS/HCC); Recurrent major depression in partial remission (HCC) (CMS/HCC); Chronic obstructive pulmonary disease, unspecified COPD type (CMS/HCC)Start: 09-08-2024 End: 68-72-3585enfnsabyepSLCTX HANCOCKFacility:[facility] Centertart: 09-08-2024 End: 09-44-3937Xnzxbha encounter Lewis Polo PhD Work Phone: NeuropyschologyComment on above:Major neurocognitive disorder (HCC) (Primary Dx); JITENDRA (obstructive sleep apnea); Chronic kidney disease, unspecified CKD stage; Coronary artery disease, unspecified vessel or lesion type, unspecified whether angina present, unspecified whether anvik or transplanted heart; Complaints of memory disturbanceStart: 06-27-2024 End: 78-79-2980Tgqicv OnlyJayy Pollocktrick HEAD SILVERMAN Work Phone: noms CW FMComment on above:Recurrent major depression in partial remission (HCC) (CMS/HCC)Start: 06-23-2024 End: 84-41-0680Vllqxsij Result EncounterBrittany Coronado HEAD SILVERMAN Work Phone: noms External Department UnsolicitedStart: 06-23-2024 End: 03-16-5767Fxsvobxs Result EncounterBrittany Coronado HEAD SILVERMAN Work Phone: noms External Department UnsolicitedStart: 06-23-2024 End: 19-13-4148dvjlcqsigiJBTWYHOEHARMEET Hull [facility] Centertart: 06-17-2024 End: 94-76-0307Qoofma flowsheetBrittany Coronado HEAD SILVERMAN Work Phone: NOIG CWM FMStart: 06-17-2024 End: 03-11-6320Ynqgki flowsheetBrittany Coronado HEAD SILVERMAN Work Phone: NOPS CWM FMStart: 06-17-2024 End: 46-30-4672rmtvpnhvzfOACZDIVD FITMILLICENTTRICKNot AvailableStart: 06-17-2024 End: 10-10-8233Hcmyxi outpatient visit 15 minutesJayy Coronado HEAD SILVERMAN Work Phone: noms CWM FMComment on above:Primary hypertension (CMS/HCC) (Primary Dx); Other hyperlipidemia (CMS/HCC); 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: 05-12-2024 End: 00-10-6441Hzvywumjjc hospital visit by physicianCt [facility] RadiologyComment on above:Memory loss [R41.3]Start: 05-04-2024 End: 08-21-6554uhdqndqnprKXRJUU MOOK ROLONFacility:[facility] Start: 05-04-2024 End: 47-61-1387Lqggpwm encounter Matt Black DO Work Phone: NeurologyComment on above:Memory loss (Primary Dx); Abnormality of gaitStart: 03-31-2024 End: 38-95-1981itskoifiwjPyawvwtprUniversity Hospitals Health System Work Phone: Start: 03-31-2024 End: 36-72-1617Meijexi encounter procedureNovant Health [facility] Nephrology Adilson Work Phone: Start: 03-28-2024 End: 86-60-8586TonejyTpazpf Fawwad MD Work Phone: noms CW FMComment on above:Gastroesophageal reflux disease without esophagitis; Recurrent major depression in partial remission (HCC) ([facility]/HCC)Start: 03-11-2024 End: 82-90-9074mnqihdzouwWZASIN FAWWADNot AvailableStart: 09-19-2023 End: 68-76-6258Khysuq outpatient visit 25 minutesShaikh Cornelio LEMON Work Phone: noms CW IMComment on above:Traumatic complete tear of left rotator cuff, subsequent encounter (Primary Dx); Recurrent major depression in partial remission (HCC) ([facility]); Other hyperlipidemia ([facility]); EDITH (generalized anxiety disorder) ([facility]); CKD (chronic kidney disease) stage 4, GFR 15-29 ml/min ([facility]); Gastroesophageal reflux disease without esophagitis; 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 ([facility]); Primary hypertension ([facility]); Chronic obstructive pulmonary disease, unspecified COPD type ([facility])Start: 09-05-2023 End: 45-91-5650Uhhywmzjo Result EncounterGeneric External Data ProviderNOMS External Department UnsolicitedStart: 09-05-2023 End: 77-98-7404Uihthcmfl Result EncounterGeneric External Data ProviderNOMS External Department UnsolicitedStart: 08-26-2023 End: 03-76-1788Gsvxsvczd Result EncounterGeneric External Data ProviderNOMS External Department UnsolicitedStart: 08-26-2023 End: 89-61-4969Sugdaopyp Result EncounterGeneric External Data ProviderNOMS External Department UnsolicitedStart: 07-29-2023 End: 68-37-1986Semcbqebo Result EncounterGeneric External Data ProviderNOMS External Department UnsolicitedStart: 07-29-2023 End: 64-92-0664Ixtqpbygr Result EncounterGeneric External Data ProviderNOMS External Department UnsolicitedStart: 04-09-2023 End: 32-56-1344Tltfywwar department patient visitNON STAFFFacility:[facility] Hospitaltart: 04-09-2023 End: 63-39-4759nwhlzosrunNnse Bakusamas Other nort [employer] Other Start: 56-60-2453Eesqyyppd encounterAzryan Pisano NephrologyStart: 03-13-2023 End: 01-52-5233wzvjjucdroWaoiklLpzne: 01-25-2023 End: 31-65-6520vkewobkdgwKjpn Bakusamas Other [facility] [employer] Other Start: 38-29-2857Twvzzg outpatient visit 25 minutes Aziz Norris NephrologyStart: 08-15-2022 End: 67-25-8457Hjtgjyj encounter procedureJanchevy Kaufman DO Work Phone: NeurologyComment on above:MCI (mild cognitive impairment) (Primary Dx)Start: 07-27-2022 End: 50-43-7024kbtkmdvbfaUNDDFF H FAWWADFacility:E6Fuxrq: 07-10-2022 End: 25-75-5560zmoypoavmrDapb Bakusamas Other [facility] [employer] Other Start: 15-77-7128Jhokqm outpatient visit 15 minutes Hanna Pisano Nephrology ClydeStart: 07-07-2022 End: 47-87-0461xuqnfdugrkEAXY MANDOFacility:K8Jeofk: 07-03-2022 End: 01-35-5077apqtfaeyfdQsirt ChabanFacility:[facility] Start: 06-26-2022 End: 27-51-9339wfmsjtjfemHykxqw Johns Other [facility] [employer] Other Start: 20-33-7708Nanfstbmg encounterGleliseo ChoiSAGE MEMORIAL [facility] Family Medicine [place]kyStart: 06-05-2022 End: 94-01-8125nxlnhoxdzgMuosm Chaban Other [employer] Other Start: 42-28-3619Ttghtv outpatient visit 25 minutes Wallacekaren Ira Pulmonary DiseaseStart: 05-29-2022 End: 04-75-2795yhudzjqdazDsjrce [facility] Other [employer] Other Start: 74-40-7228Brtuyoexq encounterAnupam [facility] PsychiatryStart: 67-06-9660Zffeeagri encounterElsa Prescott Exercise PhysiologistCardiopulmonary & Vascular RehabComment on above:Drencher - Other (In response to order placed in EPIC)Start: 04-11-2022 End: 07-21-6658Sdcqvxm encounter procedureMD Corona Monroe Work Phone: [facility]-Sleep LabStart: 04-10-2022 End: 97-39-8697Qnhwpgv encounter procedureAmanchevy Kaufman DO Work Phone: NeurologyComment on above:Recurrent major depression in partial remission (HCC) (Primary Dx); MCI (mild cognitive impairment)Start: 03-13-2022 End: 90-18-1727iaentcyfvwDatgim Jha Other [employer] Other Start: 90-83-5849Cxblitted encounterAnupam [facility] PsychiatryStart: 03-05-2022 End: 43-78-4013zxgeriigokYywppi Jha Other [employer] Other Start: 02-08-1966Yaaqqdtpf encounterAnupam [facility] PsychiatryStart: 02-28-2022 End: 14-28-7403pxtuhjbrfpPtymg Chaban Other [employer] Other Start: 56-49-9069Zinvunhbt encounterCarolynbreanna ChaMayo Clinic Arizona ([place] Referral CoordinatorStart: 02-27-2022 End: 74-30-7979vulqkogeaoIvwha Mabel Other [employer] Other Start: 01-98-9937Mulmsc outpatient new 45 minutesCorona CasesoilaSAGE MEMORIAL HOSPITAL Pulmonary DiseaseStart: 16-85-7491Tmduxpxna encounterKetiburcio Suazo [facility] [place]kyStart: 02-21-2022 End: 53-43-0056fgpwtkodakDUXWJZ H FAWWADNorth [employer] Other Start: 02-09-2022 End: 70-06-5334rrcyeaxagiWykm Fct Lab Main 11 Other Phone: pulmonary MedicineComment on above:SpirometryQuestion regarding MRI BRAIN WO IVCONStart: 02-09-2022 End: 29-85-5615Lpsmqpy encounter procedurePulm Fct Lab Main 11 Other Phone: ccf [facility] MAINStart: 02-08-2022 End: 24-94-2394Tvbhjg Flakito Nur MD Work Phone: RADQC HOSPComment on above:Cognitive impairment, mild, so stated (Primary Dx)Shortness of breath (Primary Dx)Cognitive impairment, mild, so stated [G31.84]Start: 20-84-2220Vqzzsbgtq encounterAnupalexandro JhaFPG PsychiatryStart: 01-29-2022 End: 44-53-3675zdsvqcgsguVmjpw Carnahan Other [employer] Other Start: 55-57-0022Mpziih outpatient visit 15 minutes Cristo SuazoKentfield Hospital San FranciscoyStart: 01-05-2022 End: 37-54-6290swiuiahyknXgggm Carnahan Other [employer] Other Start: 90-16-7762Pnfjgflys encounterKetiburcio LambDesert Valley HospitalyStart: 01-01-2022 End: 50-49-3125gtqmwbohcqDvcnu Gabriele Other [employer] Other Start: 90-96-7425Pzykhhfwm encounterKetiburcio College HospitalyStart: 12-26-2021 End: 47-46-3133hiadxbzwxoLxflm Gabriele Other [employer] Other Start: 69-95-9280Updzct outpatient visit 25 minutes Cristo College HospitalyStart: 12-22-2021 End: 28-31-2387Riqtcet encounter Lucio Bright MD Work Phone: NeurologyComment on above: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) (Primary Dx); Cognitive impairment, mild, so stated; Depression, unspecified depression typeStart: 12-18-2021 End: 91-21-0653zftogouzxuGgbcfs [employer] Other [employer] Other Start: 83-91-9615Ldlxucqbh encounterAnupam [facility] PsychiatryStart: 12-06-2021 End: 91-00-8602iavaabhabgYndubt [employer] Other [employer] Other Start: 52-65-1092Czfcwzgkv encounterAnupam aF PsychiatryStart: 12-04-2021 End: 60-95-5923khtyiusrtdZobcl [facility] Other [employer] Other Start: 91-17-5300Komhgnryn encounterKetiburcio College HospitalyStart: 09-13-2021 End: 42-87-9359gedxtvbobaUeiman [employer] Other [employer] Other Start: 11-86-3994Kftdyoqxn encounterAnupam [facility] PsychiatryStart: 08-16-2021 End: 02-62-7298vlzdnmrdetGpldl Carnahan Other Nort [employer] Other Start: 95-94-9483Mfuoxlwdy encounterCristo SuazoFPG Family Medicine [place]kyStart: 86-68-0949Gmdmgqjmc encounterCristo SuazoSAGE MEMORIAL HOSPITAL Family Medicine [facility] Cherry HillyStart: 03-81-0233Facdlm outpatient visit 25 minutesEssam HermannashiFPG Nephrology Clinic PayneStart: 67-71-4722Saheovduq encounter Susannah PaulinokarFPG Family Medicine PayneStart: 04-03-2018 End: 41-88-3143Tbjosml encounterORVILLE AMBURNFacility:FTKAISER FOUNDATION HOSPITAL SUNSETtart: 03-28-2018 End: 99-91-6866Pbxzbtt encounterORVILLE AMBURNFacility:[facility] Procedures DateProcedureProcedure DetailPerforming ClinicianStart: 44-40-5355DOF NT-PROBNP SERPL-MCNCGeneric External Data ProviderStart: 27-60-4084Qcs routine ecg w/least 12 lds w/i&rDavilee Gant MD Work Phone: Start: 75-73-0352JGR CREATININEGeneric External Data ProviderStart: 94-09-8450QO ECHO DOPPLER COMPLETEGeneric External Data Provider Start: 73-29-0407UNLVNLWSE BLOOD PRESSUREGeneric External Data ProviderStart: 01-03-4069Curbe 1995 panel - Serum or PlasmaBill Gant MD Work Phone: Start: 69-96-4075Oejnb panelBrharmeet Coronado HEAD SILVERMAN Work Phone: Start: 73-67-1962Jseeo 1995 panel - Serum or Plasma Mitsy Polo PhD Work Phone: Start: 84-31-7818Ig head/brain w/o contrast material Eun Black DO Work Phone: Start: 57-95-6392IN SHOULDER LEFT W/OGeneric External Data ProviderStart: 88-41-0723Mywna shoulder complete minimum 2 viewsGeneric External Data ProviderStart: 44-62-5013Kzanj shoulder complete minimum 2 views Generic External Data ProviderStart: 74-36-5957Pcujaexep rspse spmtry pre&post- brncdilat Hua Lao MD Work Phone: Start: 26-48-2576ZFH 3D POST PROCESSINGDriss Nur MD Work Phone: Start: 00-76-6139Xvg brain brain stem w/o contrast materialSjoslyn Bright MD Work Phone: Start: 52-21-8652Exdfb depression screening assessment Jessie Bright MD Work Phone: Start: 03-61-9921PrqkxtxwdyoVharme Fawwad MD Work Phone: History of coronary artery bypass graftingHx of CABG Bill Gant MD Work Phone: History of coronary artery bypass graftingHx of CABG Bill Gant MD Work Phone: Plan of Treatment DateCare ActivityDetailAuthorStart: 58-54-6005Eoidaffes for malignant neoplasm of colonNOMS HealthcareStart: 73-71-1972Mxhrq panelLipid ScreeningPremier Healthtart: 31-97-9383Ngywg panelLipid ScreeningPremier Healthtart: 51-30-2239ASE Vaccine (1 - 1-dose 75+ series)RSV Vaccine (1 - 1-dose 75+ series) Premier Healthtart: 93-32-2093Jdxyz BMI ScreeningAdult BMI ScreeningProCleveland Clinic [facility] Hospital SystemStart: 48-94-4692Dtitozk ScreeningTobacco ScreeningProCleveland Clinic [facility] Hospital SystemStart: 84-56-7048Atlps BMI ScreeningAdult BMI ScreeningProCleveland Clinic [facility] SystemStart: 66-52-0231Rytdsgh ScreeningTobacco ScreeningProCleveland Clinic [facility] Hospital SystemStart: 13-87-1463Zsgjeqcttf measurementSerum CreatinineUniversity Hospitals [facility]ma [facility] Start: 05-31-2025 End: 80-99-9374Ogpbtya encounter slgveqzxn12/20/2025 1:20 PM EDT Office Visit [facility] [address] [place] [phone] Noa Watson NP [address] [place] [address] [facility] CWM FMStart: 05-02-2025 End: 39-20-8380TX Heart Perfusion W stress and W radionuclide IVNM CARDIAC PERF STRESS/PHARM Radiology Routine 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 Hx of CABG Other emphysema (HCC) ROMAN (dyspnea on exertion) Expected: 05/02/2025 (Approximate), Expires: 05/01/2026[facility] Work Phone: Comment on above:Expected: 05/02/2025 (Approximate), Expires: 05/01/2026Start: 04-16-2025 End: 71-37-3060Uadyt metabolic 2000 panel - Serum or PlasmaBASIC METABOLIC PANEL Lab Routine Chronic heart failure with preserved ejection fraction (HCC) Expec dontae: 04/16/2025 (Approximate), Expires: 07/16/2025[facility] centerand [facility] Work Phone: Comment on above:Expected: 04/16/2025 (Approximate), Expires: 07/16/2025Start: 04-16-2025 End: 75-41-1192Ufyiscl encounter vdtzdidoc25/05/2025 11:00 AM EDT Office Visit Neurology [address] [place] [address] Twuv Eun Black DO [address] [place], [place] [id number] 6month follow upNeurologyComment on above:6 month follow upStart: 04-15-2025 End: 42-34-3944NVSQ DIFFUSION CAPACITY (DLCO)LUNG DIFFUSION CAPACITY (DLCO) PFT Routine Other emphysema (HCC) Expected: 04/15/2025 (Approximate), Expires: 05/01/2026[facility] HospitalComment on above:Expected: 04/15/2025 (Approximate), Expires: 05/01/2026Start: 04-15-2025 End: 80-99-5519JBCQ VOLUMESLUNG VOLUMES PFT Routine Other emphysema (HCC) Expected: 04/15/2025, Expires: 05/01/2026[facility] ClinicComment on above: Expected: 04/15/2025, Expires: 05/01/2026Start: 04-15-2025 End: 63-76-1274ACMENBAYRM BASELINE ONLYSPIROMETRY BASELINE ONLY PFT Routine Other emphysema (HCC) Expected: 04/15/2025 (Approximate), Expires: 05/01/2026 [facility] Medical CenterComment on above:Expected: 04/15/2025 (Approximate), Expires: 05/01/2026Start: 04-15-2025 End: 77-46-9970EN Chest PA and LateralXR CHEST 2V FRONTAL/LAT Radiology Routine Other emphysema (HCC) Expected: 04/15/2025 (Approximate),Expires: 05/01/2026 [facility] ClinicComment on above:Expected: 04/15/2025 (Approximate), Expires: 05/01/2026Start: 59-63-4090Wpmlbyomu [facility] HospitalStart: 03-10-2025 End: 96-01-2809ZD Cervical spine WO contrastMR cervical spine without contrast Imaging Routine Cervical spondylosis Expected: 03/10/2025, Expires: 03/10/2026 [facility] Work Phone: Comment on above:Expected: 03/10/2025, Expires: 03/10/2026Start: 03-10-2025 End: 08-87-5436Kmanpug encounter hrzxpsecu08/30/2025 9:45 AM EDT Office Visit [facility] [address] [place] [phone] Darrick Cannon, PA-C [address] [place] [address] [facility] ClinicStart: 03-01-2025 End: 53-81-2498Jycltyo encounter lsgvctfyj45/21/2025 1:40 PM EDT Office Visit [facility] [address] [place] [address] Noa Watson, PARI [address] [place] [address] [facility] CWM FMStart: 02-19-2025 End: 78-38-0292Ghxzaccwn to same day surgery gopuqa0502/19/2025 2:58 PM EDT - 02/19/2025 3:07 PM EDT Surgery [facility] roced[facility] [address] [place] [phone] Justo Cherry MD [address], [place] [id number] INJECTION FACET JOINT Bilateral C 5/6,6/7 [77018 (CPT )][facility] Pain ProceduresComment on above:INJECTION FACET JOINT Bilateral C 5/6,6/7 [14794 (CPT )]Start: 02-19-2025 End: 70-65-0785Aei dx/ther agt pvrt facet jt crv/thrc 1 levelINJECTION FACET JOINT Cervical spondylosis 02/19/2025 2:58 PM EDTFREMONT PAINStart: 02-19-2025 Subsequent hospital visit by eptixixod86/11/2025 2:58 PM EDT Hospital Encounter [facility] [address] [place] [phone] Justo Cherry MD [address], [place] [phone] [facility] Pain ProceduresStart: 01-19-2025 End: 97-57-4614Acqksvc encounter gjrbheqgb10/10/2025 1:00 PM EDT Office Visit [facility] [address] [place] [phone] Noa Watson NP [address] [place] [phone] [facility] FMStart: 01-07-2025 End: 91-79-7845DH Cervical spine 2 or 3 ViewsXR cervical spine 2 or 3 views Imaging Routine Neck pain Expected: 01/07/2025 (Approximate), Expires: 01/07/2026[facility] Work Phone: Comment on above:Expected: 01/07/2025 (Approximate), Expires: 01/07/2026Start: 11-19-2024 End: 44-97-9207Wkkhhol encounter procedureNOMS [facility] FMComment on above:Chronic obstructive pulmonary disease, unspecified COPD type (CMS/HCC) (Primary Dx); 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 (CMS/HCC); Atherosclerosis of arteries of extremities (CMS/HCC); Primary hypertension (CMS/HCC); Gastroesophageal reflux disease without esophagitis; Chronic kidney disease, stage 4 (severe) (CMS/HCC); EDITH (generalized anxiety disorder) (CMS/HCC)Start: 09-16-2024 End: 02-85-0989Oprpyqa encounter bimccvhdw64/05/2025 1:00 PM EST Office Visit [facility] [address] [place] [phone] Jayy Coronado NP [address] [place] [phone] [facility] FMStart: 89-63-2598Ksohvfr Directive Discussion Advance Directive DiscussionPremier Healthtart: 01-01-2025Medicare Advantage Annual Wellness VisitMedicare Advantage Annual Wellness VisitUniversity [facility]als [facility] Start: 06-30-2024 End: 18-56-6111npaezlrkqe97/19/2024 11:30 AM EST Evaluation [facility] [address] [place] [address] Babak Aquino, PT [address] [place] [address] [facility] FB PTStart: 06-17-2024 End: 81-94-0880Sozzj 1996 panel - Serum or PlasmaLipid panel Lab Routine Primary hypertension (CMS/HCC) Expected: 06/17/2024 (Approximate), Expires:06/17/2025 [facility] HealthcareComment on above:Expected: 06/17/2024 (Approximate), Expires: 06/17/2025Start: 06-10-2024 End: 31-07-0297Wlxqoks encounter procedureNOMS CW FMComment on above:Arrived Start: 25-85-5304Pribpror ScreeningDiabetes ScreeningPremier Healthtart: 05-12-2024 End: 18-35-4420Alwtvso encounter atakfjluj40/01/2024 7:45 AM EDT Appointment Radiology [address] [place] [address] ct wo contrast RadiologyComment on above:ct wo contrastStart: 95-35-8876Fuldi-19 Vaccine ( season)Covid-19 Vaccine ( season)[facility]: 17-27-6220Zcdshwdcp vaccinationInfluenza Vaccine (#1)[facility]: 12-24-2023 End: 47-67-9513Swdsxes encounter ncgkvbyar74/14/2024 1:15 PM EDT Office Visit [facility] [address] [place] [address] Shaikh Grimes MD [address] [place] [phone] [facility] CWM IMStart: 09-19-2023 End: 73-19-6099AZJ W Auto Differential panel - BloodCBC and differential Lab Routine Recurrent major depression in partial remission (HCC) ([facility]/HCC) CKD (chronic kidney disease) stage 4, GFR 15-29 ml/min (CMS/[facility]) 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 ([facility]) Primary hypertension ([facility])Expected: 09/19/2023 (Approximate), Expires: 09/19/2024[facility] Work Phone: Comment on above:Expected: 09/19/2023 (Approximate), Expires: 09/19/2024Start: 09-19-2023 End: 75-21-6677Zaeyplidoiqwg metabolic 2000 panel - Serum or PlasmaComprehensive metabolic panel Lab Routine Recurrent major depression in partial remission (HCC) ([facility]) CKD (chronic kidney disease) stage 4, GFR 15-29 ml/min ([facility]) 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 ([facility]) Primary hypertension ([facility]) Expected: 09/19/2023 (Approximate), Expires: 09/19/2024[facility] HealthcareComment on above:Expected: 09/19/2023 (Approximate), Expires: 09/19/2024Start: 09-19-2023 End: 19-33-5244Hdmsbxhfbc [Mass/volume] in UrineCreatinine, urine, random Lab Routine CKD (chronic kidney disease) stage 4, GFR 15-29 ml/min ([facility]) Expected: 09/19/2023 (Approximate), Expires: 09/19/2024[facility] HealthcareComment on above:Expected: 09/19/2023 (Approximate), Expires: 09/19/2024Start: 09-19-2023 End: 28-77-1171Llrue 1996 panel - Serum or PlasmaLipid panel Lab Routine Other hyperlipidemia ([facility]) Expected: 09/19/2023 (Approximate), Expires:09/19/2024 [facility] HealthcareComment on above:Expected: 09/19/2023 (Approximate), Expires: 09/19/2024Start: 09-19-2023 End: 27-94-7479Qfzowcq, urine, randomProtein, urine, random Lab Routine CKD (chronic kidney disease) stage 4, GFR 15-29 ml/min ([facility]/HCC)Expected: 09/19/2023 (Approximate), Expires: 09/19/2024[facility] HealthcareComment on above:Expected: 09/19/2023 (Approximate), Expires: 09/19/2024Start: 67-26-3746Eqzlolb Directive DiscussionAdvance Directive DiscussionPremier Healthtart: 43-18-3619Vctqldodp vaccinationInfluenza Vaccine (#1)[facility] HealthcareStart: 40-73-6823Nchzi depression screening assessmentDEPRESSION SCREENINGPremier Healthtart: 50-39-4327BVEZCJT DIRECTIVE DISCUSSIONADVANCE DIRECTIVE DISCUSSIONPremier Healthtart: 53-63-1501Gswiceqpp vaccinationINFLUENZA (#1)[facility]: 02-09-2022 End: 91-23-5291BAHQMKMTDV WITH DILATOR IF OBSTRUCTEDCity Hospital Work Phone: comment on above:Expected: 02/09/2022, Expires: 03/10/2023Start: 12-22-2021 End: 35-54-1089MJJSKVDV TOTAL W/REFLEXSYPHILIS TOTAL W/REFLEX Lab Routine Cognitive impairment, mild, so stated 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) Depression, unspecified depression type Expected: 12/22/2021, Expires: 02/21/2022[facility] Work Phone: comment on above:Expected: 12/22/2021, Expires: 02/21/2022tart: 12-22-2021 End: 04-62-9836Owfdixdzbgs [Units/volume] in Serum or PlasmaTSH BLD Lab Routine Cognitive impairment, mild, so stated Dementia due to medical condition with beh avioral disturbance (HCC) Depression, unspecified depression type Expected: 12/22/2021, Expires: 02/21/2022[facility] Work Phone: comment on above:Expected: 12/22/2021, Expires: 02/21/2022tart: 12-22-2021 End: 66-82-3018SGGGAWI B12 BLOODVITAMIN B12 BLOOD Lab Routine Cognitive impairment, mild, so stated 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) Depression, unspecified depression type Expected: 12/22/2021, Expires: 2CRegency [facility] Company Work Phone: comment on above:Expected: 12/22/2021, Expires: 02/21/2022tart: 70-34-5910SXGTV-19 VACCINE (4 - Booster for Pfizer series) COVID-19 VACCINE (4 - Booster for Pfizer series)[facility]: 58-40-6790POVRG-19 VACCINE (4 - Booster for Pfizer series)COVID-19 VACCINE (4 - Booster for Pfizer series)[facility]: 45-95-3476ZUINIWN DIRECTIVE DISCUSSIONADVANCE DIRECTIVE DISCUSSIONCleMercy Health Defiance Hospitaltart: 56-51-2339Gixf Risk ScreeningFall Risk ScreeningProCleveland Clinic [facility] SystemStart: 2018 PNEUMOCOCCAL: 65+ (1 - PCV)PNEUMOCOCCAL: 65+ (1 - PCV)[facility]: 98-81-3042CAGYUNDUI AGE 65 AND OVER WITH 5YR LOOKBACK (#1)PNEUMOVAX AGE 65 AND OVER WITH 5YR LOOKBACK (#1)[facility]: 48-14-2163OCM Vaccine (1 - Risk 60-74 years 1-dose series)RSV Vaccine (1 - Risk 60-74 years 1-dose series) [facility]: 10-43-2343GOPPFXUH CANCER SCREENING DISCUSSIONPROSTATE CANCER SCREENING DISCUSSIONCleMercy Health Defiance Hospitaltart: 06-73-5422Wsjnbvfguwfqib of varicella zoster vaccineZoster (Shingles) Vaccine (1 of 2)[facility] SystemStart: 91-24-4158TPXAEEUT VACCINE (1 of 2)SHINGRIX VACCINE (1 of 2) [facility]: 02-40-4455ZUXEYEHLU (FIT-DNA)COLOGUARD (FIT-DNA)[facility]: 39-55-2197OuwytxozpusZTNZLMBHGTNTvefcehti ClinicStart: 1998 COLORECTAL CANCER SCREENINGCOLORECTAL CANCER SCREENINGPremier Healthtart: 43-90-7919JN COLONOGRAPHYCT COLONOGRAPHYCleMercy Health Defiance Hospitaltart: 1998 DIABETES SCREENDIABETES SCREENCleMercy Health Defiance Hospitaltart: 16-29-3007CSVDB OCCULT BLOODFECAL OCCULT BLOODPremier Healthtart: 00-82-2738Vroeejrfm for malignant neoplasm of colonPremier Healthtart: 65-66-8102LAJEOOSFCJOVEESYNXHMFAGWVL [facility]: 60-12-9214Pahnq panelLipid ScreeningUniversity Hospitals Parma Medical Center Start: 50-11-7720SITXT SCREENLIPID SCREENPremier Healthtart: 1972 DTaP,Tdap and Td Vaccines (1 - Tdap)DTaP,Tdap and Td Vaccines (1 - Tdap) [facility]: 31-81-0014Qzhsw microalbumin profilePremier Healthtart: 59-86-1265Pcrvw BMI Follow Up PlanAdult BMI Follow Up PlanCommunity Healthtart: 41-09-2412Mtjeqz PCP Team Chronic Disease VisitAnnual PCP Team Chronic Disease VisitPremier Healthtart: 75-71-0537Bwwbkvt Screening Anxiety ScreeningPremier Healthtart: 69-35-7827Opsnpfdvq B surface antibody levelLDL CholesterolPremier Healthtart: 81-85-1843OVVFZLXJP C SCREENING HEPATITIS C SCREENINGPremier Healthtart: 00-37-5500Mbxswsbnw C screening Hepatitis C ScreeningPremier Healthtart: 14-25-8206Jmwyrywydw Screening Depression ScreeningCommunity Healthtart: 1953Medicare Annual Wellness (AWV)Medicare Annual Wellness (AWV)[facility] HealthcareStart: 1955 Screening for malignant neoplasm of colonCACHE VALLEY [facility] HealthcareStart: 05-93-2810Etjmjhq CounselingTobacco CounselingRiverview Health InstituteCBC W Auto Differential panel - BloodCBC and differential Lab Routine Primary hypertension (CMS/HCC) Ordered: 06/17/2024[facility] Work Phone: Comment on above:Ordered: 06/17/2024omprehensive metabolic 2000 panel - Serum or PlasmaComprehensive metabolic panel Lab Routine Primary hypertension (CMS/HCC) Ordered: 06/17/2024[facility]HealthComment on above:Ordered: 06/17/2024 End: 45-69-3865PD Head WO contrastCT BRAIN WO IVCON Radiology Routine Memory loss 1 Occurrences starting 05/04/2024 until 5CRegency Hospital Company Work Phone: Comment on above:1 Occurrences starting 05/04/2024 until 06/03/2025 End: 62-32-4080Hbm brain brain stem w/o contrast materialMRI BRAIN WO IVCON Radiology Routine Cognitive impairment, mild, so stated 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) Depression, unspecified depression type 1 Occurrences starting 12/22/2021 until 01/21/2023[facility] Work Phone: comment on above:1 Occurrences starting 12/22/2021 until 01/21/2023Renal function 2000 panel - Serum or PlasmaOhio Valley HospitalRenal function 1999 panel - Serum or [facility] CenterRenal function 1999 panel - Serum or [facility] Immunizations Immunization DateImmunizationNotesCare VkobyjtjTwmfbjuo36-11-3107QGAGP-15 Vaccine Pfizer - Documentation Purposes OnlyCorona Monroe Other [employer] Other 10-143615-47-8216janjwlhlp, high dose seasonal, preservative-freeSusannah Nevarez Other [employer] Other 10-527676-50-6108Kvzdmlykc, High-dose Seasonal, Quadrivalent, Preservative FreeShaikh Cornelio LEMON Work Phone: [facility]HealthKeifgpsajq85-60-5880jrffuouda virus vaccine, unspecified formulationSselene Grimes MD Work Phone: [facility]03-30-2021COVID-19 PfizerSusannah Nevarez Other [employer] Other 03-297376-17-8596GITHR-33 Vaccine Pfizer - Documentation Purposes OnlySusannah Nevarez Other [employer] Other 12522475-78-3423vbzneqimb, high dose seasonal, preservative-freeSusannah Nevarez Other [employer] Other 1010284-57-2749kqnaumxniuck polysaccharide vaccine, 23 valentSusannah Nevarez Other [employer] Other 12-787259-02-3158ehdaaorzj virus vaccine, unspecified formulationOhio Valley Hospital12-23-2020Influenza, High-dose Seasonal, Quadrivalent, Preservative Kofi Grimes MD Work Phone: [facility]HealthNdpyovmiot27-67-4934fflmltrqxzbs conjugate vaccine, 13 valentSusannah Nevarez Other [employer] Other Payers DatePayer CategoryPayerPolicy [id number] (Managed Care) [id number] 2025Medicare [place] [id number] [id number] 2024MedicaidAETNA MEDICARE ADVANTAGE [id number] Medical Specialty [facility] [id number]00.07382-51-0635Zaox-mon [id number]JTQ BLUE ACCESS PPO [id number] 2020-Present [phone] [address] [place] [address] PPO [id number] MedicareMEDICARE MEDICARE A AND B [id number] 2015-Present [phone] [place] [address] [id number] [id number] 2016Medicare [id number] 2.16.840.1.679188.3.57[id number] 2.16.840.1.231212.3.57[id number] 2.16.840.1.551798.3.57[id number] 2.16.840.1.194555.3.57[id number] 2..840.1.490607.3.579.2.930116-43-8126Fxjlyva8613287 2..840.1.065239.3.57[id number] 2.840.1.128935.3.579.2.531159-44-9212Fygckkt2425615 2..840.1.249264.3.579.2.851108-27-5103Hkjitgp87264568 2..840.1.076930.3.579.2.074497-43-4651Nepxhay9844455 2..840.1.821273.3.579.2.[id number] 2..840.1.868944.3.579.[id number] 2..840.1.495532.3.57[id number] 2.16.840.1.064305.3.579.[id number] 2.16.840.1.734956.3.57[id number] 2..840.1.267384.3.57[id number] 2.16.840.1.250489.3.579.2.7[id number] 2..840.1.164866.3.579.2.802930-47-2964Msfrirf486007474 2..840.1.492307.3.579.2.416327-59-9152Gaonupy245412133 2..840.1.921082.3.579.2.686000-84-6511Vqtxiuf585574128 2.840.1.113520.3.579.2.851327-82-4569Tdmwwiu86108844 2.0.1.688164.3.579.2.525074-30-5407Tlsv Cross Blue WjeqtvCBD602Z90921 2..9.251662.[id number] 2..8.013307.0884-01-1900 Private Health [id number] [id number] 2.0.1.441385.3.579.2.067Rdsfzgq37101995 2..1.320823.3.579.2.531 Social History DateTypeDetailFacilityStart: 12-22-2021 End: 74-91-8905Cbvulfz smoking status NHISNever smoked tobaccoUniversity Hospitals Parma Medical Center Start: 12-22-2021 End: 15-16-6780Cphvlau use and exposureUser of smokeless tobaccoUniversity Hospitals Parma Medical Center End: 54-10-8293Ywrcelk of tobacco useChews TobaccoPremier Healthtart: 54-78-5934Oip Assigned At BirthNot on filePremier Healthtart: 12-12-2021 End: 98-81-3218Vonmtclz to SARS-CoV-2 (event)Not surePremier Healthtart: 07-22-2023 End: 60-11-0146Vhf Assigned At [facility] HealthcareStart: 09-30-2020 End: 80-48-5964Trhaosh smoking status NHISEx-smoker (finding)[facility]tart: 35-39-7836Wsw Assigned At [facility] Hospitaltart: 60-29-9107Sxunlym use and exposureFormer smokeless tobacco userUniversity Hospitals Parma Medical CenterHistory of tobacco useCurrent smokerNONM HealthcareHistory of tobacco useCigarette SmokerCACHE VALLEY HOSPITAL HealthcareStart: 07-12-2023 End: 26-15-7422Xzbqhup use and exposureSmokeless tobacco non-userNONM Healthcare Start: 07-12-2023 End: 87-55-2659Sfdugsi intakeLifetime non-drinker (finding)[facility] HealthcareStart: 07-22-2023 End: 38-09-9648Ncxfndu of Social functionNOMS HealthcareWithin the last year, have you been afraid of your partner or ex-partner?NoNOMS HealthcareAre you now , , , , never or living with a partner? MarriedNOMS HealthcareHow often to you have a drink containing alcohol?NeverNOMS HealthcareStart: 12-05-2021 End: 80-60-5641Hqj many standard drinks containing alcohol do you [...] before (I/we) got money to buy more.Never trueNONM HealthcareStart: 07-12-2023 Alcohol Commentcaffeine: 1-2 cups per dayCoxHealthStart: 10-02-2019 End: 91-19-0117TofZdfe (finding)[facility] HospitalHow often do you need to have someone help you when you read instructions, pamphlets, or other written material from your doctor or pharmacy [SILS]SometimesNOMS HealthcareAre you now , , , , never or living with a partner?SeparatedCACHE VALLEY HOSPITAL HealthcareHow hard is it for you to pay for the very basics like food, housing, medical care, and heatingNot very hardNONM HealthcareDo you feel stress - tense, restless, nervous, or anxious, or unable to sleep at night because yourmind is troubled all the time - these days [OSQ]To some extentCoxHealthStart: 73-18-6866Jaujltxku beverage intakeEx-drinker (finding)[facility] Parma Medical CenterNEGATED: Highlighted rowStart: NINFHistory of tobacco usePassive smokerCoxHealth Medical Equipment Procedure CodeEquipment CodeEquipment Original TextEquipment IdentifierDates Repair, hernia, umbilicalAbdominal hernia surgical mesh, composite-polymer ()[id number] FDAStart: 09-30-2020 Goals DatePatient GoalDesired Activity/StatePersonal health goal Functional Status LlbmNkolfrivodCkzptsXgcdrtvt57-71-8486Onu often do you have a drink containing alcohol?Never 02/28/2025 4:11 PM EDT Mychart, Generic NeverCoxHealth 68-84-3960Eyhfpbtejc statusPatient does not drink 02/28/2025 4:11 PM EDT Albert Medical Deviceshart, Generic Patient does not drinkCoxHealthFycgosifnk05-27-5023Wsuhtdk Health Questionnaire 2 item (PHQ-2) [Reported][facility] Clinical Notes 05-23-2021 to 06-19-2025 Note Date & ZsdvTdjpCfmuiymw41-32-5806 Note Attestation signed by Italo Lyles MD at 06/20/2025 8:50 PM I saw the patient with the resident. I agree with the above findings. No evidence of cellulitis. No evidence of infection. We are applying peel and place negative for pressure. Will discharge the patient on antibiotics see him in 1 week as follow-up. [facility] Vascular and Wound Surgery DAILY PROGRESS NOTE [...] Service Please direct primary wound calls to: [phone] Please direct primary vascular calls to: [phone] This note was created with the assistance of a speech-recognition program. While intending to generate a document that accurately reflects the content of the encounter, no guarantee can be provided that every mistake has been identified and corrected by editing '[facility]11-08-2025 Note [facility] checked [employer] portal for Ready Care vac approval, however, no updates have been made to patients account. [facility] had emailed back and forth with [employer] client support consultant 06/18/25 regarding Ready Care vac approval as patient is medically ready for hospital discharge. Last email sent to [employer] client support consultant has gone unanswered. [facility] has re-ordered Ready Care Vac, and re-uploaded necessary documentation to assist in approval. [facility] will continue to check [employer] portal for approval, and provide updates as able. 1230: Primary RN requested update on Ready Vac approval. [facility] attempted to call [place] [employer] Rep, Breanne, but did not receive answer. [facility] called [employer] directly to inquire about Ready Care Vac approval. [employer] rep, Guillermo, stated that he sees that everything has been uploaded, and that someone will be working on the case as soon as possible. Guillermo stated that on the weekends when staffing is conveyor system dispatcher, their computerized system does not automatically assign cases for review/approval. Guillermo stated that he will push this case to a roll trucker for review and approval, and will have the roll trucker contact [facility] once [...] continue to follow. 1258: Received call from [employer] Rep Ian regarding Ready Vac approval. Ian has stated that Ready Vac has been approved, and she will order patients home supplies for shipment. [facility] ordered Ready Care Vac from [employer] based on available Ready Care Vac listed on [employer] website. Primary RN notified. [facility]11-07-2025 NotePt selected [facility] for [facility] and AVS was sent. Family was notified of discharge today. Awaiting wound vac placement for discharge.[facility]11-06-2025 Note Attestation signed by Italo Lyles MD [...] the wound with Betadine and a dressing. [facility] Vascular and Wound Surgery DAILY PROGRESS NOTE [...] Service Please direct primary wound calls to: [phone] Please direct primary vascular calls to: [phone] (more content not included)... [facility]11-05-2025 NoteVancomycin Timed Date/Time Value Ref Range Status [...] for 48 hours and no gram positive growing.[facility]11-05-2025 NoteUnAvita Health [facility] Hospital Vascular [facility]ound Surgery DAILY PROGRESS [...] Will Keys PA-C Consult ordered by: [facility] 06-16-2025 Note06/16/25 4057 Admission Assessment Questions Verify insurance with patient [...] Status Interested Does the patient have a family caseworker assigned to them through their insurance? No [...] able to send link and activate MyChart? [facility]11-05-2025 NotePharmacy Dosing Service - Vancomycin Progress Note Pharmacy is consulted for the dosing and evaluation of: Drug: Vancomycin Duration: Day 1 of empiric therapy Indication: complicated skin and soft tissue infection Sgtnw-ym-tevczk Other Antimicrobial Regimens: cefepime 1g q8h for [...] Total body weight: 79.4 kg (175 lb) [place] body weight: 63.8 kg (140 lb 10.5 [...] or questions Thank you, Khalida Ivan, PharmD, 06/16/25[facility] 06-15-2025 Note06/15/25 5221 Financial Resource Strain How hard is it [...] or living in a group home (including now)? N Transportation Needs In the [...] than 3 How often do you attend cheondoism or presybeterian services? Never Do you belong to any clubs or organizations such as cheondoism groups, unions, fraternal or athletic groups, or [...] In the past 12 months has the [employer]), gas, oil, or water kompany threatened to shut off services in your home? 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 No [...] for RW; SW consulted for DME referral. [facility]10-29-2025 NoteUnAvita Health [facility] Hospital Vascular and Wound Surgery DAILY PROGRESS [...] Service Please direct primary wound calls to: [phone] Please direct primary vascular calls to: [phone] This note was created with the assistance of a speech-recognition program. While intending to generate a document that accurately reflects the content of the encounter, no guarantee can be provided that every mistake has been identified and corrected by editing '[facility]10-28-2025 Note [facility] Surgical Intensive Care Unit Progress Note Chief [...] Value Ventricular Rate 54 Atrial Rate 54 FL Interval 190 QRS DURATION 120 QT Interval 492 QTC CALCULATION(BAZETT) 466 P Epping 36 R-Epping -22 T Wave Epping 95 Impression Sinus bradycardia Intra-ventricular conduction delay Nonspecific ST and T wave abnormality Abnormal ECG When compared with ECG of 08-APR-2025 07:50, no significant changes was noted Confirmed by Saqib Saldana ([id number]) on 05/11/2025 11:35:47 PM Assessment The patient is a 70 y.o. year old (more content not included)...[facility]10-28-2025 NoteThis report has been cancelled.[facility]10-28-2025 NoteUnAvita Health [facility] Hospital Vascular Surgery DAILY PROGRESS NOTE Subjective/Interval History [...] PGY-4 Vascular Surgery Service For non-urgent questions, [employer] Chat may be used [phone], M-F. For urgent concerns, please call [phone], or ask the tool shaper set up operator to connect you to the on-camera person. For after-hours concerns, please page [phone], or ask the tool shaper set up operator to connect you to the on-camera person. This note was created with the assistance of a speech-recognition program. While intending to generate a document that accurately reflects the content of the encounter, no guarantee can be provided that every mistake has been identified and corrected by editingAdena Health System10-27-2025 Note Patient: Kel Castillo Procedure Summary Date: 06/07/25 Room / Location: [address] / [facility] Operating Room Anesthesia Start: 1450 Anesthesia Stop: [...] were no known notable events for this encounter.[facility]10-27-2025 NoteAirway Date/Time: 06/07/2025 3:09 PM Reason: elective Airway not difficult General Information and Staff Patient location during procedure: OR Anesthesiologist: Judith Malloy MD Resident/SOFTWARE TEAM LEADER/CAA: Young Carcamo MD Performed: resident/SOFTWARE TEAM LEADER/MATHIEU Patient Condition Indications for airway management: anesthesia [...] approach: 1 Number of other approaches attempted: 0[facility] NoteArterial Line: Date/Time: 06/07/2025 12:38 [...] Staffing Performed: resident/NABILA/MATHIEU Anesthesiologist: Judith Malloy MD Resident/SOFTWARE TEAM LEADER: Young Carcamo MD Performed by: Young Carcamo MD Authorized by: Judith Malloy MDAdena Health System10-27-2025 NotePlan same as belowUnCity Hospital10-27-2025 Note Relevant Hx: Can walk only 10 steps prior to stopping due to pain Course: Previous stenting of the right SFA, continues to be symptomatic Today's Plan: OR today for right fem-pop bypass with graft, 2g Ancef given for surgical prophylaxisAdena Health System10-26-2025 NotePatient: Kel Castillo Procedure Information Date/Time: 06/07/25 1100 Procedures: CREATION, BYPASS, ARTERIAL, FEMORAL TO POPLITEAL, USING GRAFT (Right) LOWER EXTREMITY ANGIOGRAM WITH POSSIBLE INTERVENTION (Left) LOWER EXTREMITY INTERVENTION Location: [facility] OR [address] [place] [address] / [facility] Operating Room Surgeons: Italo Lyles MD Relevant Problems Cardio (+) Atherosclerosis of arteries of extremities (+) Hypertensive disorder (+) Migraine GI (+) Gastroesophageal reflux disease without esophagitis /Renal (+) Chronic kidney disease, stage 4 (severe) ([facility]/HCC) Neuro/Psych (+) Migraine Pulmonary (+) Chronic obstructive pulmonary disease, unspecified ([facility]/HCC) Clinical information reviewed: TTE 04/27/2025 LVEF 40-45% Normal RV size and function Biatrial enlargement Left heart catheterization 05/11/2025 FINAL IMPRESSIONS: Severe, three-vessel anvik coronary artery disease There are 2 out [...] products. Plan discussed with attending. Additional Equipment RequestsAdena Health System10-15-2025 Note Nephrology Clinic Patient: Kel Castillo; 70 [...] His diet is high in potatoes / serbian fries. We discussed low potassium diet in [...] NITRITEU NEGATIVE 10/05/2019 HOME (more content not included)...[facility]10-06-2025 NoteLeft voicemail to schedule nephrology referralAdena Health System09-18-2025 NoteSpoke to daughter Glenda in reference to cardiac cath per Dr. Tolliver. Daughter verbalized understanding and agreed with plan of care. Labs faxed to [facility], [facility]25 NoteHNO ID: [id number] Author: EUN TRENT DO Service: ? Author Type: Physician Type: Progress Notes Filed: 04/29/2025 16:05 Note Text: [facility] Follow up/ Established patient visit Individuals who were included in, or assisted with the encounter were: Samir Castillo Eun Black DO Chief Complaint/Issues: Samir Castillo is a 70 year old male seen in the [facility] for [facility]rology for: Memory loss [...] TABLET BY MOUTH TWIC (more content not included)...[facility]09-18-2025 NoteHNO ID: [id number] Author: CIELO CHILDERS MA Service: ? Author Type: Assembly Inspector Type: Progress Notes Filed: 04/29/2025 16:05 Note [...] 1 SD worse than population and warrants attentionC[facility] Clinic [facility]09-10-2025 NoteDIVISION OF VASCULAR SURGERY HPI Kel Castillo [...] has had an HUBER study done at [facility] on 02/23/25 where right PT was, 0.55. right DP 0.53, right TBI 0.32, left PT 0.6, left DP 0.63, left TBI 0.51. He had a aortogram done by Dr. 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 Patient is taking [...] Date Cancer (CMS/HCC) Coronary artery disease Hyperlipidemia HypertensionAdena Health System09-10-2025 NoteDIVISION OF VASCULAR SURGERY HPI Kel Castillo is a 69 y.o. male who presents today for No chief complaint on file. Patient referred to us for PAD. HE has had a HUBER study done at [facility] on 02/23/25. Patient with a history [...] Date Cancer (CMS/HCC) Coronary artery disease Hyperlipidemia HypertensionAdena Health System08-25-2025 Telephone encounter Note* Telephone Encounter - Mariana Wheeler LPN - 04/05/2025 4:02 PM EDT Chest x-ray results received from [facility]. Scanned in for review. Mariana Wheeler LPN [facility]08-25-2025 Miscellaneous Notes* Telephone Encounter - Mariana Wheeler LPN - 04/05/2025 4:02 PM EDT Chest x-ray results received from [facility]. Scanned in for review. Mariana Wheeler LPN documented in this encounterUniversity Hospitals Parma [facility]08-22-2025 Telephone encounter Note * Telephone Encounter - Brianne Patterson LPN - 04/02/2025 8:21 AM EDT I spoke to Nini and informed them of 's response and recommendations. She voiced understanding and will call back with fax number for lab of choice. Brianne Patterson LPN [facility]08-22-2025 Miscellaneous Notes* Telephone Encounter - [...] 2 weeks that can be done in [facility] * Telephone Encounter - Brianne Patterson LPN - 04/02/2025 8:05 AM EDT I spoke to Nini and informed them of 's response to lab results and recommendations. She voiced understanding and wants to go ahead and start both medications. [facility] in [place] on file is pharmacy of choice. Brianne [...] Gant MD documented in this encounterUniversity Hospitals Parma Medical Center08-22-2025 Note* Addendum Note - Bill Gant MD - 04/02/2025 8:18 AM EDTAddended by: BILL GANT on: 04/02/2025 08:18 AM Modules accepted: Orders [facility]08-22-2025 Telephone encounter Note* Telephone Encounter - Bill Gant MD - 04/02/2025 8:17 AM EDT If the Jardiance is too expensive just have them cancel that particular prescription. I will order a BMP for about 2 weeks that can be done in [place] [facility]08-22-2025 Telephone encounter Note* Telephone Encounter - Brianne Patterson LPN - 04/02/2025 8:05 AM EDT I spoke to Nini and informed them of 's response to lab results and recommendations. She voiced understanding and wants to go ahead and start both medications. [facility] in [place] on file is pharmacy of choice. Brianne Patterson LPN [facility]08-22-2025 Telephone encounter Note* Telephone Encounter [...] EDT To: Bill Gant MD [facility]08-21-2025 Instructions* Patient Instructions* Bill Gant [...] get back with you. Please ask your complaint clerk to send results of the peripheral artery imaging that is planned to look at your legs in the next few weeks. documented in this encounterUniversity Hospitals Parma Medical Center08-21-2025 History of Present illness Narrative* Bill Gant MD - 04/01/2025 2:20 PM EDT Chief Complaint No chief complaint on file. History of Present Illness: Samir Castillo is a 69-year-old male with a history of CAD, status post-CABG, HTN, HLD, COPD, PAD, stage 4 CKD, and mild cognitive impairment, presenting for a new patient visit. [place] in [place] most of [place] care in [place] at [facility] but just wants a second opinion on [...] oxygen. He has not seen a senior net web developer recently and has not had any pulmonaryfunction tests. He denies any history of diabetes, liver disease, or excessive alcohol use. He denies any internal bleeding or significant bruising. He denies any use of NSAIDs such as Advil or Aleve. He has a history of mild cognitive impairment and is no longer driving. He relies on his family fortransportation. 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 He quit smoking 40 [...] 1/2 TABLETS BY MOUTH EVERY DAY omega 9-sgz-zcv-fish oil (FISH OIL) 100-160-1,000 mg cap Take [...] and Plan: 1. 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(I25.10) 2. Hx of [...] CRI (chronic renal insufficiency), stage 4 (severe) ([facility]) (N18.4) Stage 4 renal insufficiency; most [...] peripheral angiogram by Dr. Tolliver at [facility]. - Discussed potential interventions (balloon angioplasty, stenting, surgery) depending on angiogramfindings. - Advised patient and family to ensure results are sent to our office for review. 9. Other emphysema ([facility]) (J43.8) COPD with mild baseline symptoms; [...] avoid him having to come back to [place] or [place] for all this testing. If they are done locally in the [facility] or in [place] I would then asked that results be sent to our office when available. Thank you Electronically signed by Bill Gant MD on March 31, 2025, 7:13 AM [1] Social History Tobacco Use Smoking status: Never Smokeless tobacco: Former Types: Chew Quit date: 07/14/2022 documented in this encounterUniversity Hospitals Parma [facility] Center08-21-2025 NoteHNO ID: [id number] Author: BILL GANT MD Service: ? Author Type: Physician Type: Progress Notes Filed: 04/01/2025 15:11 Note Text: Chief Complaint No chief complaint on file. History of Present Illness: Samir Castillo is a 69-year-old male with a history of CAD, status post-CABG, HTN, HLD, COPD, PAD, stage 4 CKD, and mild cognitive impairment, presenting for a new patient visit. He lives in [place] and gets most of his care in [place] at [facility] but just wants a second opinion on [...] oxygen. He has not seen a senior net web developer recently and has not had any pulmonary [...] family for transportation. He worked at a [employer] before retiring. He quit smoking 40 years [...] 1/2 TABLETS BY MOUTH EVERY DAY omega 2-ifa-znd-fish oil (FISH OIL) 100-160-1,000 mg cap Take [...] no resting tachypnea H (more content not included)...[facility]07-30-2025 History of Present illness Narrative* Darrick Cannon PA-C - 03/10/2025 9:45 AM EDT [facility] [address] [place] [address] Patient: Kel Castillo Jr. Sex: male : 1955 Age: 69 y.o. PCP: NOA WATSON, LEGAL ENTITY CONTROLLER-TECHNOLOGY SPECIALIST 03/10/2025 Kel Castillo Jr. is here for [...] disease Chronic kidney disease, stage 4 (severe) ([facility]) 09/19/2023 Chronic obstructive pulmonary disease, unspecified ([facility]) 03/11/2024 CKD (chronic kidney disease) stage 3 Closed nondisplaced fracture of greater tuberosity of left humerus with routine healing 09/19/2023 COPD (chronic obstructive pulmonary disease) ([facility]) Coronary artery disease 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 09/19/2023 Depression Dyspnea and respiratory abnormalities 09/18/2013 66 pk/yr history of smoking. Quit in 1994, when diagnosed with NSCLC and treated with RULobectomy and XRT. Also has extensive coronary disease, with CABG. Sees cardiology at [facility]. Anxiety, HTN, CKD IIIb. PCP started albuterol [...] echocardiogram Hypertension Intermittent claudication 08/25/2012 Lung cancer ([facility]) MCI (mild cognitive impairment) 04/12/2022 Migraine 07/18/2012 [...] 02/19/2025 Performed by Justo Cherry MD at [facility] No Known Allergies History reviewed. [...] Resource Strain: Low Risk (02/28/2025) Received from [facility] Overall Financial Resource Strain (CARDIA) Difficulty of Paying Living Expenses: Not very hard Food Insecurity: No Food Insecurity (03/10/2025) Hunger Screening Food Insecurity - Worry: Never True Food Insecurity - Inability: Never True Transportation Needs: No Transportation Needs (02/28/2025) Received from [facility] - Transportation Lack of Transportation (Medical): No Lack of Transportation (Non-Medical): No Physical Activity: Inactive (02/28/2025) Received from [facility] Exercise Vital Sign Days of Exercise per Week: 0 days Minutes of Exercise per Session: 0 min Stress: Stress Concern Present (02/28/2025) Received from [facility] [place] [facility] Occup[facility] - Occupational Stress Questionnaire Feeling of Stress : To some extent Social Connections: Socially Isolated (02/28/2025) Received from [facility] Social Connection and Isolation Panel [NHANES] Frequency of Communication with Friends and Family: More than three times a week Frequency of Social Gatherings with Friends and Family: Once a week Attends Shinto Services: Never Active Member of Clubs or Organizations: No Attends Club or Organization Meetings: Never Marital Status: Interpersonal Safety: Not At Risk (02/28/2025) Received from [facility] Humiliation, Afraid, Rape, and Kick questionnaire Fear of Current or Ex-Partner: No Emotionally Abused: No Physically Abused: No Sexually Abused: No Housing Instability: Low Risk (02/28/2025) Received from [facility] Housing Stability Vital Sign Unable to Pay [...] Cannon PA-C 03/10/25 1049 documented in this encounterRiverview Health Institute07-21-2025 History of Present illness Narrative* Noa Watson [...] (65 Fe) MG tablet 1 tablet, Daily Lkeuijvbtbb-Hawbajpgf-Aketar (Trelegy Ellipta) 100-62.5-25 MCG/ACT aerosol powder 1 [...] HISTORY Past Medical History: Diagnosis Date Alcoholism ([facility]) ( quit drinking 25 years ago) Anxiety and depression Bronchitis Chicken pox CKD (chronic kidney disease), symptom management only, stage 4 (severe) ([facility]) Claudication of calf muscles COPD (chronic obstructive pulmonary disease) ([facility]) Coronary artery disease Depression with anxiety [...] Addressed This Visit 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 Established with [facility] Cardiology Current meds: asa, amlodipine, statin, [...] (HCC) Is prescribed trelegy inhaler Relevant Medications Cdkakqwazll-Rswzncaqm-Foeymh (Trelegy Ellipta) 100-62.5-25 MCG/ACT aerosol powder Primary [...] AM EDTAssociated Problem(s): 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 Established with [facility] Cardiology Current meds: asa, amlodipine, statin, [...] imdur, gaby, b kelsy, documented in this enco[id number] Instructions* Patient Instructions* Noa Watson NP - 03/01/2025 1:40 PM EDT Please call dr amezcua's office to get an appt documented in this en[id number] History of Present illness Narrative* Darrcik Cannon PA-C - 01/27/2025 10:00 AM EDT [facility] [address] [place] [address] Patient: Kel Castillo Jr. Sex: male : 1955 Age: 69 y.o. PCP: NOA WATSON, GERARDO-TECHNOLOGY SPECIALIST 01/27/2025 Kel Castillo Jr. is here for [...] pulmonary disease) ([facility]) Coronary artery disease Hypertension Neck pain History [...] Resource Strain: Medium Risk (07/22/2023) Received from [facility] Overall Financial Resource Strain (CARDIA) Difficulty of Paying Living Expenses: Somewhat hard Food Insecurity: No Food Insecurity (01/27/2025) Hunger Screening Food Insecurity - Worry: Never True Food Insecurity - Inability: Never True Transportation Needs: No Transportation Needs (07/22/2023) Received from [facility] - Transportation Lack of Transportation (Medical): No Lack of Transportation (Non-Medical): No Physical Activity: Inactive (07/22/2023) Received from [facility] Exercise Vital Sign Days of Exercise per Week: 0 days Minutes of Exercise per Session: 0 min Stress: Stress Concern Present (07/22/2023) Received from [facility] [place] [facility] - Occupational Stress Questionnaire Feeling of Stress : Very much Social Connections: Moderately Isolated (07/22/2023) Received from [facility] Social Connection and Isolation Panel [NHANES] Frequency of Communication with Friends and Family: More than three times a week Frequency of Social Gatherings with Friends and Family: Twice a week Attends Shinto Services: Never Active Member of Clubs or Organizations: No Attends Club or Organization Meetings: Never Marital Status: Interpersonal Safety: Unknown (10/03/2023) Received from [facility] [place] [facility] Fear of Current or Ex-Partner: Not on file Emotionally Abused: Not on file Physically Abused: Not on file Sexually Abused: Not on file Physically or Sexually Abused: Not on file Housing Instability: Low Risk (07/22/2023) Received from [facility] Housing Stability Vital Sign Unable to Pay [...] Cannon PA-C 01/27/25 1115 documented in this encounterMadison Healthicanbuy [id number] Instructions* Patient Instructions* Noa Anderson CNA - [...] the nearest emergency room. documented in this encounterRiverview Health Institute06-10-2025 History of Present illness Narrative* ALVARO DE [...] (ANTARA) 43 mg, Oral, Daily with breakfast Ethkgtmihpt-Flakulnsb-Lqciwm (Trelegy Ellipta) 100-62.5-25 MCG/ACT aerosol powder 1 [...] Date Alcoholism ([facility]) ( quit drinking 25 years ago) Anxiety and depression ([facility]) Bronchitis Chicken pox CKD (chronic kidney disease), symptom management only, stage 4 (severe) ([facility]) Claudication of calf muscles ([facility] COPD (chronic obstructive pulmonary disease) ([facility]) Coronary artery disease ([facility]) Depression with anxiety GERD (gastroesophageal reflux disease) Heart disease High blood pressure ([facility]) High cholesterol ([facility]) History of medical problems Hernia History of migraine headaches History of psychiatric care Kidney disease Lung cancer ([facility]) JITENDRA (obstructive sleep apnea) Peripheral vascular disease ([facility]) Umbilical hernia URTI (infection of the [...] H/O: lung cancer EDITH (generalized anxiety disorder) ([facility]) Current meds: wellbutrin, buspar, sertraline and [...] mgmt Trial prednisone taper [facility] Instructions* Patient Instructions* Noa Watson NP - 01/19/2025 1:00 PM EDT Pain mgmt [facility] History of Present illness Narrative* Noa [...] (ANTARA) 43 mg, Oral, Daily with breakfast Zwixecubtdq-Ryebruwkh-Jrvgoy (Trelegy Ellipta) 100-62.5-25 MCG/ACT aerosol powder 1 [...] Date Alcoholism ([facility]) ( quit drinking 25 years ago) Anxiety and depression ([facility]) Bronchitis Chicken pox CKD (chronic kidney disease), symptom management only, stage 4 (severe) ([facility]) Claudication of calf muscles ([facility]) COPD (chronic obstructive pulmonary disease) ([facility]) Coronary artery disease ([facility]) Depression with anxiety GERD (gastroesophageal reflux disease) Heart disease High blood pressure ([facility]) High cholesterol ([facility]) History of medical problems Hernia History of migraine headaches History of psychiatric care Kidney disease Lung cancer ([facility]) JITENDRA (obstructive sleep apnea) Peripheral vascular disease ([facility]) Umbilical hernia URTI (infection of the [...] 4 (severe) ([facility]/HCC) Continue with Nephrology Check labs yearly and prn EDITH (generalized anxiety disorder) ([facility]) Current meds: wellbutrin, buspar, sertraline Pt's daughter is a [employer]ILVERMAN, I have given daughter present today options for addressing anxiety: Buspar TID, olanzapine at 2.5mg or quetiapine She will talk with sister and go from there Primary hypertension ([facility]) Please check blood pressure daily and [...] AM EDTAssociated Problem(s): EDITH (generalized anxiety disorder) ([facility]) Current meds: wellbutrin, buspar, sertraline Pt's daughter is a [employer], I have given daughter present today options for addressing anxiety: Buspar TID, olanzapine at 2.5mg or quetiapine She will talk with sister and go from there * Noa Watson NP - 11/19/2024 7:01 AM EDTAssociated Problem(s): Chronic kidney disease, stage 4 (severe) (CMS/[facility]) Continue with Nephrology Check labs yearly [...] AM EDTAssociated Problem(s): 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 (CMS/HCC) Established with [facility] Cardiology Current meds: asa, amlodipine, statin, plavix, imdur, gaby, b kelsy, and prn nitro * Noa Watson NP - 11/19/2024 6:59 AM EDTAssociated Problem(s): Chronic obstructive pulmonary disease, unspecified Is prescribed trelegy inhaler [facility] Instructions* Patient Instructions* Noa Watson NP - 11/19/2024 1:00 PM EDT Anxiety; we could try increase buspirone to 15mg three times daily Or consider adding olanzapine at 2.5mg at bed time ??low dose of quetiapine like 25mg at bedtime I will order PT and speech therapy at [facility] Neck: try stretching exercises, baclofen 10mg pill at bedtime as needed for muscle spasms [facility] Evaluation note* Diagnosis Onset Date Resolution [...] through stage 4 chronic kiacuteJune 2024 4:22pm [facility] Work Phone: 1(687) 781-780003-04-[address] [facility] Cardiology Clinic Note Chief Complaint: Patient [...] occluded right coronary artery. 2. Severe 3-vessel anvik coronary artery disease. 3. Patent left internal [...] Laboratory Report FINAL IMPRESSIONS: 1. Severe 3-vessel anvik coronary artery disease. 2. A 2/3 bypass grafts patent; the radial artery graft to the posterior descending artery is occluded. 3. Severe, heavily calcific lesion of the right common femoral artery; this is a new angiographic finding. Assessment: Coronary a (more content not included)...[facility] 10-12-2024 Instructions* Patient Instructions* Eun Trent, - 10/12/2024 11:31 AM EST Please do physical therapy and speech therapy. Please follow-up with your sleep apnea doctor about a better mask as this can help memory. Follow-up in six months. He and his family may benefit from the following community resources: [facility] Agencies on Aging -- , https://aging.[place].gov/about-us/who-we-are/ychr-opfjzlnf-wd-aging Visit your local Senior Center to participate in stimulating activities and socialize with others -https://www.careA.C. [place].org/zhcb98_hlbk_nlrhbx_cfgodul.htm He can use strategies to help optimize [...] for Neurodegenerative Delay (MIND) diet, is recommended. 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 Re-evaluation in approximately 18-24 months (or as needed). documented in this encounterUniversity Hospitals Parma Medical Center03-03-2025 NoteHNO ID: [id number] Author: MANDEEP LATASHA, EUN, DO Service: ? Author Type: Physician Type: Progress Notes Filed: 10/12/2024 14:47 Note Text: [facility] General Neurology Follow up/ Established patient visit Individuals who were included in, or assisted with the encounter were: Samir Castillo Eun Black, Chief Complaint/Issues: Samir Castillo is a 69 year old male seen in the [facility] for General Neurology for: Memory loss [...] here for follow-up of (more content not included)...[facility]03-03-2025 History of Present illness Narrative* Eun Trent DO - 10/12/2024 11:28 AM EST Images from the original note were not included. [facility] General Neurology Follow up/ Established patient visit Individuals who were included in, or assisted with the encounter were: Samir Castillo Eun Black DO Chief Complaint/Issues: Samir Castillo is a 69 year old male seen in the [facility] for [facility] Neurology for: Memory loss [...] 1/2 TABLETS BY MOUTH EVERY DAY omega 7-rge-kza-fish oil (FISH OIL) 100-160-1,000 mg cap Take [...] which included preparing to see the patient, juwm-bh-blgz patient care, completing clinical documentation, obtaining and/or [...] sleep study) documented in this encounterUniversity Hospitals Parma Medical Center03-03-2025 NoteHNO ID: [id number] Author: SANTIAGO JAY MA Service: ? Author Type: Assembly Inspector Type: Progress Notes Filed: 10/12/2024 14:47 Note [...] Sleep Apnea Probability Score: 70 (Recommend sleep study)[facility]02-27-2025 History of Present illness Narrative* Noa Watson [...] no compliance problems. Hypertensive end-organ damage includes CAD/DC. Heart Problem This is a chronic problem. [...] (ANTARA) 43 mg, Oral, Daily with breakfast Qbihnxmbkmy-Ghfqwzmhz-Eyhqqh (Trelegy Ellipta) 100-62.5-25 MCG/ACT aerosol powder 1 [...] Date Alcoholism ([facility]) ( quit drinking 25 years ago) Anxiety and depression ([facility]) Bronchitis Chicken pox CKD (chronic kidney disease), symptom management only, stage 4 (severe) ([facility]/HCC) Claudication of calf muscles ([facility]/HCC) COPD (chronic obstructive pulmonary disease) (CMS/HCC) Coronary artery disease ([facility]/HCC) Depression with anxiety GERD (gastroesophageal reflux disease) Heart disease High blood pressure (CMS/HCC) High cholesterol ([facility]/HCC) History of medical problems Hernia History of migraine headaches History of psychiatric care Kidney disease Lung cancer (CMS/HCC) JITENDRA (obstructive sleep apnea) Peripheral vascular disease ([facility]/HCC) Umbilical hernia URTI (infection of the upper [...] and neuropsych testing 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 ([facility]) - Primary Current meds: plavix, amlodipine, statin, b kelsy, nitroglycerin prn No acute symptoms, cont with [facility] Cardiology Relevant Medications clopidogrel (Plavix) 75 MG tablet isosorbide mononitrate ER (Imdur) 60 MG 24 hr tablet metoprolol tartrate (Lopressor) 50 MG tablet Mixed hyperlipidemia ([facility]) On statin and fenofibrate Check labs yearly and prn dose changes Relevant Medications atorvastatin (Lipitor) 80 MG tablet fenofibrate micronized (Antara) 43 MG capsule Chronic kidney disease, stage 4 (severe) ([facility]) Continue with Nephrology Gastroesophageal reflux disease [...] anxiety disorder) ([facility]) Current meds: wellbutrin XL, buspar, sertraline, and trazodone EDITH 7=4 Had recent neuropsych testing has fu appt in a few weeks Relevant Medications sertraline (Zoloft) 100 MG tablet traZODone (Desyrel) 100 MG tablet Chronic obstructive pulmonary disease, unspecified ([facility]) Current meds: albuterol, trelegy Cannot afford trelegy, but does help breathing #2 samples trelegy: 100/25, XM5N, exp 01/04 Recurrent major depressive disorder, in full remission ([facility]) Current med: wellbutrin, sertralin, and trazodone PHQ 9=9 Primary hypertension ([facility]) Please check blood pressure daily and [...] remission (HCC) ([facility]) Relevant Medications buPROPion XL (Wellbutrin XL) 300 MG 24 hr tablet busPIRone (Buspar) 15 MG tablet sertraline (Zoloft) 100 MG tablet traZODone (Desyrel) 100 MG tablet * Noa Watson NP - 10/08/2024 7:12 AM ESTAssociated Problem(s): Recurrent major depressive disorder, in full remission ([facility]) Current med: wellbutrin, sertralin, and trazodone PHQ 9=9 * Noa Watson NP - 10/08/2024 7:11 AM ESTAssociated Problem(s): Mixed hyperlipidemia ([facility]) On statin and fenofibrate Check labs yearly and prn dose changes * Noa Watson NP - 10/08/2024 7:10 AM ESTAssociated Problem(s): EDITH (generalized anxiety disorder) ([facility]) Current meds: wellbutrin XL, buspar, sertraline, [...] AM ESTAssociated Problem(s): 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 (CMS/HCC) Current meds: plavix, amlodipine, statin, b kelsy, nitroglycerin prn No acute symptoms, cont with [facility] Cardiology * Noa Watson NP - 10/08/2024 7:06 AM ESTAssociated Problem(s): Chronic obstructive pulmonary disease, unspecified (CMS/HCC) Current meds: albuterol, trelegy Cannot afford trelegy, but does help breathing #2 samples trelegy: 100/25, XM5N, exp 01/04 [facility] Inst[facility]* Patient Instructions* Noa Watson NP - 10/08/2024 1:40 PM EST No med dose changes [facility]25 NoteHNO ID: [id number] Author: MISTY POLO, PhD Service: ? Author Type: Psychologist Type: Progress Notes Filed: 09/10/2024 16:35 Note Text: [facility] Department of Neurology Section of Neuropsychology Neuropsychological Evaluation Report CONFIDENTIAL Patient: Samir Castillo Date of : 1955 Referred by: Eun Black MD (Neurology) Education: 10 Handedness: R Language(s): Bur[place]ian Date of Evaluation: 09/08/2024 Mr. Castillo is [...] no Problems with mother's /delivery: no Early SUMMER NANNY infection, high fever, significant childhood illness: no SCHOOL HISTORY: Years of education completed: 10; left school early because he did not like it. 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 Department of Neurology Section of Neuropsychology Neuropsychological Evaluation Report CONFIDENTIAL Patient: Samir Castillo Date of : 1955 Referred by: Eun Black MD (Neurology) Education: 10 Handedness: R Language(s): [place]ian Date of Evaluation: 09/08/2024 Mr. Castillo is [...] no Problems with mother's /delivery: no Early SUMMER NANNY infection, high fever, significant childhood illness: no SCHOOL HISTORY: Years of education completed: 10; left school early because he did not like it. 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 [place] non-verbal memory test, new learning was similarly [...] may benefit from the following community resources: [facility] Agencies on Aging -- , https://aging.[place].gov/about-us/who-we-are/vgzj-eniveqrg-lf-aging Visit your local Senior Center to participate in stimulating activities and socialize with others -https://www.careoh[place].org/ggzm04_kewc_lnzoej_gsznjhx.htm He can use strategies to help optimize [...] for Neurodegenerative Delay (MIND) diet, is recommended. https://www.abhay.nih.gov/health/utky-om-jb-know-ab kjx-ijfm-yto-cvknuuziha-jjhikmgygy-udpucnv If he is to continue doing complex tasks such as financial aid officer on his own, his family members are encouraged to routinely review his work and assist as necessary. Re-evaluation in approximately 18-24 months (or as needed). These results have not been reviewed with the patient, but he will be provided access to this note via Gizmo[employer]. It has been a pleasure to participate in his care. Please feel free to contact me if you have any questions regarding this report or my recommendations. Misty Polo, PhD, ABPP-CN Board Certified Clinical Neuropsychologist [facility] [place] The purpose of this evaluation was explained [...] = 2 hours Neuropsychological test administration/scoring by plastic sheeting cutter = 4 hours TESTS ADMINISTERED: Waite Anxiety Inventory, Waite Depression Inventory-2, Mas Judgment of Line Orientation (Form H), Oley Naming Test-2, Brief Visuospatial Memory Test- Revised (Form 2), Clinical Interview, Jessie Chowdhury Executive Function System (Color-Word Interference), Castro Verbal Learning Test-Revised (Form 2), Language Screen, Performance Validity Testing, Gregory Osterrieth Complex Figure Test (Miles System, copy), [place] Making Test (Parts A & B), Verbal Fluency (CFL, Animals/Fruits/Vegetables), Veena Adult Intelligence Scale-IV (Digit Span, Coding, Matrix Reasoning), Veena Memory Scale-IV (Logical Memory), [place] Card Sorting Test - 128 documented in this encounterUniversity Hospitals Parma Medical Center11-11-2024 History of Present illness Narrative* [...] kidney disease) stage 4, GFR 15-29 ml/min (CMS/[facility]) Following with Nephrology. Avoid nephrotoxic agents. 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 Continue current regimen. CKD (chronic kidney disease) stage 4, GFR 15-29 ml/min ([facility]) Following with Nephrology. Avoid nephrotoxic agents. Continue to monitor. Primary hypertension ([facility]) - Primary Currently taking amlodipine Imdur [...] referral to Physical Therapy documented in this [id number] Instructions* Patient Instructions* Jayy Coronado NP - [...] TO THE EMERGENCY ROOM!!! documented in this [id number] History of Present illness Narrative* Claire Vilchis [...] PATIENT PRESENTS WITH AN IMPLANTABLE OR ATTACHED DENTURE TECHNICIAN: No RADIOLOGY DEPARTMENT: CT; Exam(s) Completed: Brain PERIPHERAL IV DATA: Not applicable SIGNED BY: KORY Bolivar May 12, 2024 8:35 AM documented in this encounterUniversity Hospitals Parma Medical Center10-01-2024 NoteHNO ID: [id number] Author: CLAIRE VILCHIS CT Service: ? Author Type: Molder Sweep Type: Progress Notes Filed: 05/12/2024 08:35 Note [...] PATIENT PRESENTS WITH AN IMPLANTABLE OR ATTACHED DENTURE TECHNICIAN: No RADIOLOGY DEPARTMENT: CT; Exam(s) Completed: Brain PERIPHERAL IV DATA: Not applicable SIGNED BY: KORY Bolivar May 12, 2024 8:35 [facility]09-23-2024 Instructions* Patient Instructions* Eun Trent DO - 05/04/2024 10:[address] scan of brain Physical therapy Follow-up after neuropsych Please do not climb ladders or do other activities for high fall risk. documented in this encounterUniversity Hospitals Parma Medical Center09-23-2024 History of Present illness Narrative* Eun Trent DO - 05/04/2024 9:30 AM EDT Images from the original note were not included. [facility] Follow up/ Established patient visit Individuals who were included in, or assisted with the encounter were: Samir Castillo Eun Black DO Chief Complaint/Issues: Samir Castillo is a 69 year old male seen in the [facility] for General Neurology for: Memory loss [...] over medications. 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 MOCA December 2021 [...] 1/2 TABLETS BY MOUTH EVERY DAY omega 5-iou-kbt-fish oil (FISH OIL) 100-160-1,000 mg cap Take [...] which included preparing to see the patient, hojb-xv-upof patient care, completing clinical documentation, obtaining and/or [...] warrants attention documented in this encounterUniversity Hospitals Parma Medical Center09-23-2024 NoteHNO ID: [id number] Author: EUN TRENT DO Service: ? Author Type: Physician Type: Progress Notes Filed: 05/04/2024 22:17 Note Text: [facility] Follow up/ Established patient visit Individuals who were included in, or assisted with the encounter were: Samir Castillo Eun Black DO Chief Complaint/Issues: Samir Castillo is a 69 year old male seen in the [facility] for [facility] Neurology for: Memory loss [...] over medications. 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 MOCA December 2021 [...] 50 mg tablet,extended release (more content not included)...[facility]02-08-2024 History of Present illness Narrative* Shaikh Cornelio MD - 09/19/2023 5:35 PM ESTAssociated Problem(s): EDITH (generalized anxiety disorder) ([facility]) Improved now. C/w current regimen. * Shaikh Cornelio MD - 09/19/2023 5:35 PM ESTAssociated Problem(s): Other hyperlipidemia (CMS/HCC) Check Lipid panel. * Shaikh Cornelio MD - 09/19/2023 5:35 PM ESTAssociated Problem(s): Recurrent major depression in partial remission (HCC) ([facility]) Symptoms improved and well controlled since [...] 15-29 ml/min ([facility]) Has an appointment with Nephrology. Avoid NSAIDS. C/w current regimen. 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 On ASA, BB, Imdur, plavix, statin Denies CP, SOB, palpitations. Following [facility] cardiology. * Shaikh Cornelio MD - [...] in the morning. Take with meals. 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 On ASA, BB, Imdur, plavix, statin Denies CP, SOB, palpitations. Following [facility] cardiology. Relevant Medications aspirin 81 MG EC tablet isosorbide mononitrate ER (Imdur) 60 MG 24 hr tablet metoprolol tartrate (Lopressor) 50 MG tablet clopidogrel (Plavix) 75 MG tablet Other Relevant Orders CBC and differential Comprehensive metabolic panel Other hyperlipidemia ([facility]) Check Lipid panel. Relevant Medications atorvastatin (Lipitor) 80 MG tablet fenofibrate micronized (Antara) 43 MG capsule Other Relevant Orders Lipid panel CKD (chronic kidney disease) stage 4, GFR 15-29 ml/min ([facility]) Has an appointment with Nephrology. Avoid NSAIDS. C/w current regimen. Relevant Orders CBC and differential Comprehensive metabolic panel Protein, urine, random Creatinine, urine, random Gastroesophageal reflux disease without esophagitis Relevant Medications famotidine (Pepcid) 20 MG tablet EDITH (generalized anxiety disorder) ([facility]) Improved now. C/w current regimen. Relevant Medications sertraline (Zoloft) 100 MG tablet traZODone (Desyrel) 100 MG tablet Traumatic complete tear of left rotator cuff - Primary Noted on MRI - following Orthopedics. Patient has a follow up appointment next week and it appears that he will likely need surgery for it. Other Visit Diagnoses Primary hypertension ([facility]) Relevant Medications amLODIPine (Norvasc) 5 MG tablet isosorbide mononitrate ER (Imdur) 60 MG 24 hr tablet metoprolol tartrate (Lopressor) 50 MG tablet Other Relevant Orders CBC and differential Comprehensive metabolic panel Chronic obstructive pulmonary disease, unspecified COPD type ([facility]) Relevant Medications Urjihwheffz-Ijfbvbfkf-Oilsei (Trelegy Ellipta) 100-62.5-25 MCG/ACT aerosol powder No follow-ups on file. documented in this enco[id number] Instructions* Patient Instructions* Eun Kaufman DO - 08/15/2022 4:17 PM EST Please work with your doctor on the sleep apnea and psychiatrist for depression. Follow-up in 6 months. documented in this encounterUniversity Hospitals Parma Medical Center01-04-2023 History of Present illness Narrative* Eun Kaufman DO - 08/15/2022 3:47 PM EST Images from the original note were not included. [facility] Follow up/ Established patient visit Individuals who were included in, or assisted with the encounter were: Samir Castillo Eun Kaufman DO Chief Complaint/Issues: Samir Castillo is a 67 year old male seen in the [facility] for: Follow-up Most [...] AND 1/2 TABLETS BY MOUTH EVERY DAY Whrgxpzamyjlt-Wrzxjvoz-Bbvnjx (MULTIVITAMIN 50 PLUS) tab Take 1 tablet by mouth once daily. omega 9-ioy-nda-fish oil (FISH OIL) 100-160-1,000 mg cap Take [...] which included preparing to see the patient, nksk-uy-gevu patient care, completing clinical documentation, obtaining and/or reviewing separately obtained history, performing a medically appropriate examination, counseling and educating the pat ient/family/caregiver, and ordering medications, tests, or procedures. Eun Kaufman DO documented in this encounterUniversity Hospitals Parma Medical Center11-29-2022 Evaluation note* Encounter Date Diagnosis [...] mmol/L. 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 documented in this encounterUniversity Hospitals Parma Medical Center08-30-2022 History of Present illness Narrative* Eun Kaufman DO - 04/10/2022 10:11 AM EDT Images from the original note were not included. [facility] New Patient Evaluation Consulting Provider: Jessie Bright [id number] [facility] [id number] Individuals who were included in, or assisted with the encounter were: Samir Castillo Eun Kaufman DO Chief Complaint/Issues: Samir Castillo is a 66 year old male seen in the [facility] for: Memory HPI: [...] notices problems with both short term and rat exterminator memory Language: yes, word finding problems. Knows [...] AND 1/2 TABLETS BY MOUTH EVERY DAY Mjjyzpiyqaybs-Spmoijci-Umkvwi (MULTIVITAMIN 50 PLUS) tab Take 1 tablet by mouth once daily. omega 9-app-ioe-fish oil (FISH OIL) 100-160-1,000 mg cap Take [...] which included preparing to see the patient, zngo-ve-vmve patient care, completing clinical documentation, obtaining and/or reviewing separately obtained history, performing a medically appropriate examination, and counseling and educating the patient/family/caregiver. Eun Kaufman DO documented in this encounterUniversity Hospitals Parma Medical Center08-02-2022 Evaluation note* Encounter Date Diagnosis Assessment Notes Treatment Notes Treatment Clinical Notes Mar, Depression, major, recurrent, mo derate (ICD-10 - F33.1) [facility] Other 07-25-2022 Evaluation note* Encounter Date Diagnosis Assessment Notes Treatment Notes Treatment Clinical Notes Feb, Depression, major, recurrent, mo derate (ICD-10 - F33.1) [facility] Other 07-19-2022 Evaluation note* Encounter Date Diagnosis [...] Feb,leep apnea, unspecified type (ICD-10 - G47.30) [facility] Other 07-01-2022 Miscellaneous Notes* Telephone Encounter - [...] Message text documented in this encounterUniversity Hospitals Parma Medical Center07-01-2022 History of Present illness Narrative* Brayan Trent CRT - 02/09/2022 10:41 AM EDT PULM FUNCTION SMARTBLOCK: Provider: Prince Aby MD Spirometry w/BD: 1 System: MC9 - [id number] documented in this encounterUniversity Hospitals Parma Medical Center06-30-2022 History of Present illness Narrative* [...] 4:21 PM documented in this encounterUniversity Hospitals Parma Medical Center06-20-2022 Evaluation note* Encounter Date Diagnosis [...] relief. Also reports that he saw his complaint clerk recently who does not think that his shortness of breath is related to his heart. He did have an appointment with [facility] but has since decided to see pulmonology in [place]. Given his PFT and CT results I [...] with Dr. Hurtado at their upcoming appointment. [facility] Other 05-27-2022 Evaluation note* Encounter Date Diagnosis Assessment Notes Treatment Notes Treatment Clinical Notes December, Obstructive lung disease (ICD-10 - J44.9) December,ulmonary nodule (ICD-10 - R91.1) [facility] Other 05-23-2022 Evaluation note* Encounter Date Diagnosis Assessment Notes Treatment Notes Treatment Clinical Notes December, Shortness of breath (ICD-10 - R0 6.02) [facility] Other 05-17-2022 Evaluation note* Encounter Date Diagnosis [...] next month or so we will recheck. [facility] Other 05-13-2022 History of Present illness Narrative* Jessie Bright MD - 12/22/2021 8:41 AM EDT Images from the original note were not included. [facility] New Patient Evaluation Consulting Provider: SELF Individuals who were included in, or assisted with the encounter were: Samir Olmedokaren Bright MD Chief Complaint/Issues: Samir Castillo is a 66 year old male seen in the [facility] for: 1. Memory [...] notices problems with both short term and rat exterminator memory Language: yes, word finding problems. Knows [...] AND 1/2 TABLETS BY MOUTH EVERY DAY Lgtelgkwylxnd-Zwqdilaf-Lfmmvr (MULTIVITAMIN 50 PLUS) tab Take 1 tablet by mouth once daily. omega 3-jty-wfm-fish oil (FISH OIL) 100-160-1,000 mg cap Take [...] which included preparing to see the patient, [id number] patient care, completing clinical documentation and performing a medically appropriate examination. Jessie Bright MD [facility] Evaluation [facility]* Encounter Date Diagnosis Assessment Notes Treatment Notes Treatment Clinical Notes December, Depression, major, recurrent, mo derate (ICD-10 - F33.1) [facility] Other 10-12-2021 Evaluation note* Encounter Date Diagnosis [...] metoprolol. He follow-up with Dr. Rubio, his complaint clerk in [place]. He stated that his heart looks fine. [...] at home also runs between 140-150 systolic. [place] systolic blood pressure at home should be [...] Dr. Arellano for lipid profile. 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)- Primary Other persistent mental disorders due to conditions classified elsewhere Cognitive impairment, mild, so stated Mild cognitive impairment, so stated Depression, unspecified depression type documented in this encounter [facility] noteNo InformationNortExcela [facility] Other [facility]No[facility] Other Evaluation note* Diagnosis Cognitive impairment, mild, so stated- Primary Mild cognitive impairment, so stated documented in this encounter [facility] note* Diagnosis Shortness of breath- Primary [facility]* Diagnosis Cognitive impairment, mild, so stated Mild cognitive impairment, so stated 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) Other persistent mental disorders due to conditions classified elsewhere Depression, unspecified depression type [facility]* Diagnosis Shortness of breath [facility]* Diagnosis Recurrent major depression in partial remission (HCC)- Primary Major depressive disorder, recurrent episode, in partial or unspecified remission MCI (mild cognitive impairment) Mild cognitive impairment, so stated [facility] noteNo assessment information availableKettering Health [facility] Work Phone: Evaluation note* Diagnosis MCI (mild cognitive impairment)- Primary Mild cognitive impairment, so stated [facility] noteNort [employer] Other Evaluation note* Diagnosis Traumatic complete tear of left rotator cuff, subsequent encounter- Primary Recurrent major depression in partial remission (HCC) ([facility]CC) Major depressive disorder, recurrent episode, in partial or unspecified remission Other hyperlipidemia ([facility]/HCC) EDITH (generalized anxiety disorder) ([facility]) Generalized anxiety disorder CKD (chronic kidney disease) stage 4, GFR 15-29 ml/min ([facility]/HCC) Chronic kidney disease, Stage IV (severe) Gastroesophageal reflux disease without esophagitis Esophageal reflux 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 ([facility]) Primary hypertension ([facility]) Unspecified essential hypertension Chronic obstructive pulmonary disease, unspecified COPD type ([facility]) [facility]* Diagnosis Onset Date Resolution Status Anemia acuteCAD (coronary artery disease) of artery bypass graftacuteChronic kidney disease, stage [id number] [facility] Work Phone: Evaluation note* Diagnosis Dyspnea and respiratory abnormalities- Primary Other dyspnea and respiratory abnormality Centrilobular emphysema (HCC) Other emphysema Class 1 obesity due to excess calories with serious comorbidity and body mass index (BMI) of 32.0 to 32.9 in adult Sleep-disordered breathing Other sleep disturbances Memory loss- Primary Abnormality of gait [facility]* Diagnosis Dyspnea and respiratory abnormalities- Primary Other dyspnea and respiratory abnormality Centrilobular emphysema (HCC) Other emphysema Class 1 obesity due to excess calories with serious comorbidity and body mass index (BMI) of 32.0 to 32.9 in adult Sleep-disordered breathing Other sleep disturbances Memory loss [facility]* Diagnosis Traumatic complete tear of left rotator cuff, subsequent encounter- Primary Recurrent major depression in partial remission (HCC) ([facility]) Major depressive disorder, recurrent episode, in partial or unspecified remission Other hyperlipidemia ([facility]/HCC) EDITH (generalized anxiety disorder) ([facility]) Generalized anxiety disorder CKD (chronic kidney disease) stage 4, GFR 15-29 ml/min ([facility]/HCC) Chronic kidney disease, Stage IV (severe) Gastroesophageal reflux disease without esophagitis Esophageal reflux 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 ([facility]) Primary hypertension ([facility]) Unspecified essential hypertension Chronic obstructive pulmonary disease, unspecified COPD type ([facility]) Chronic obstructive pulmonary disease, unspecified COPD type ([facility])- Primary 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 ([facility]) CKD (chronic kidney disease) stage 4, GFR 15-29 ml/min ([facility]/HCC) Chronic kidney disease, Stage IV (severe) Gastroesophageal reflux disease without esophagitis Esophageal reflux Recurrent major depressive disorder, in full remission ([facility]) Other hyperlipidemia ([facility]/HCC) EDITH (generalized anxiety disorder) ([facility] Generalized anxiety disorder Recurrent major depression in partial remission (HCC) ([facility]) Major depressive disorder, recurrent episode, in partial or unspecified remission Primary hypertension ([facility]/HCC) Unspecified essential hypertension Primary hypertension ([facility])- Primary Unspecified essential hypertension Other hyperlipidemia ([facility]/HCC) 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 ([facility]/HCC) Frequent falls Functional gait abnormality CKD (chronic kidney disease) stage 4, GFR 15-29 ml/min ([facility]/HCC) Chronic kidney disease, Stage IV (severe) [facility]* Diagnosis Traumatic complete tear of left rotator cuff, subsequent encounter- Primary Recurrent major depression in partial remission (HCC) ([facility]) Major depressive disorder, recurrent episode, in partial or unspecified remission Other hyperlipidemia ([facility]) EDITH (generalized anxiety disorder) ([facility]) Generalized anxiety disorder CKD (chronic kidney disease) stage 4, GFR 15-29 ml/min ([facility]) Chronic kidney disease, Stage IV (severe) Gastroesophageal reflux disease without esophagitis Esophageal reflux 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 ([facility]) Primary hypertension ([facility]) Unspecified essential hypertension Chronic obstructive pulmonary disease, unspecified COPD type ([facility]) Chronic obstructive pulmonary disease, unspecified COPD type ([facility])- Primary 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 ([facility]) CKD (chronic kidney disease) stage 4, GFR 15-29 ml/min ([facility]) Chronic kidney disease, Stage IV (severe) Gastroesophageal reflux disease without esophagitis Esophageal reflux Recurrent major depressive disorder, in full remission ([facility]) Other hyperlipidemia ([facility]) EDITH (generalized anxiety disorder) ([facility]) Generalized anxiety disorder Recurrent major depression in partial remission (HCC) ([facility]) Major depressive disorder, recurrent episode, in partial or unspecified remission Primary hypertension ([facility]) Unspecified essential hypertension Primary hypertension ([facility])- Primary Unspecified essential hypertension Other hyperlipidemia ([facility]) 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 ([facility]) Frequent falls Functional gait abnormality CKD (chronic kidney disease) stage 4, GFR 15-29 ml/min ([facility]) Chronic kidney disease, Stage IV (severe) Recurrent major depression in partial remission (HCC) ([facility]) Major depressive disorder, recurrent episode, in partial or unspecified remission documented in this encounter [facility] Healthcare[facility] note* Diagnosis Gastroesophageal reflux disease without esophagitis Esophageal reflux Recurrent major depression in partial remission (HCC) ([facility]) Major depressive disorder, recurrent episode, in partial or unspecified remission documented in this encounter [facility] HealthcareEvaluation note* Diagnosis Dyspnea and respiratory abnormalities- [...] type, unspecified whether angina present, unspecified whether anvik or transplanted heart Complaints of memory disturbance Memory loss documented [facility]* Diagnosis Traumatic complete tear of left rotator cuff, subsequent encounter- Primary Recurrent major depression in partial remission (HCC) ([facility]) Major depressive disorder, recurrent episode, in partial or unspecified remission Other hyperlipidemia ([facility]) EDITH (generalized anxiety disorder) ([facility]) Generalized anxiety disorder CKD (chronic kidney disease) stage 4, GFR 15-29 ml/min ([facility]) Chronic kidney disease, Stage IV (severe) Gastroesophageal reflux disease without esophagitis Esophageal reflux 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 ([facility]) Primary hypertension ([facility]) Unspecified essential hypertension Chronic obstructive pulmonary disease, unspecified COPD type ([facility]) Chronic obstructive pulmonary disease, unspecified COPD type ([facility])- Primary 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 ([facility]) CKD (chronic kidney disease) stage 4, GFR 15-29 ml/min ([facility]) Chronic kidney disease, Stage IV (severe) Gastroesophageal reflux disease without esophagitis Esophageal reflux Recurrent major depressive disorder, in full remission ([facility]) Other hyperlipidemia ([facility]) EDITH (generalized anxiety disorder) ([facility] Generalized anxiety disorder Recurrent major depression in partial remission (HCC) ([facility]) Major depressive disorder, recurrent episode, in partial or unspecified remission Primary hypertension ([facility]) Unspecified essential hypertension Primary hypertension ([facility] Primary Unspecified essential hypertension Other hyperlipidemia ([facility]) 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 ([facility]) Frequent falls Functional gait abnormality CKD (chronic kidney disease) stage 4, GFR 15-29 ml/min ([facility]) Chronic kidney disease, Stage IV (severe) Primary hypertension ([facility])- Primary Unspecified essential hypertension Chronic obstructive pulmonary disease, unspecified COPD type ([facility]) Chronic kidney disease, stage 4 (severe) ([facility]) 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 ([facility]) Gastroesophageal reflux disease without esophagitis Esophageal reflux EDITH (generalized anxiety disorder) ([facility]) Generalized anxiety disorder Recurrent major depressive disorder, in full remission (CMS/HCC) Mixed hyperlipidemia ([facility]/HCC) Mixed hyperlipidemia MCI (mild cognitive impairment) Mild cognitive impairment, so stated Other hyperlipidemia ([facility]) Recurrent major depression in partial remission (HCC) ([facility]) Major depressive disorder, recurrent episode, in partial or unspecified remission documented in this encounter [facility] HealthcareEvaluation note* Diagnosis Dyspnea and respiratory abnormalities- Primary Other dyspnea and respiratory abnormality Centrilobular emphysema (HCC) Other emphysema Class 1 obesity due to excess calories with serious comorbidity and body mass index (BMI) of 32.0 to 32.9 in adult Sleep-disordered breathing Other sleep disturbances Gait abnormality- Primary Abnormality of gait Memory loss Neck pain Cervicalgia documented in this encounter [facility]* Diagnosis Onset Date Resolution Status Admit Date Anemia acuteMarch 2024 3:58pmCAD (coronary artery disease) of artery bypass graft acuteMarch 2024 3:58pmChronic kidney disease, stage 3bacuteMar 2024 3:58pmHyperkalemiaacute[facility] 3:58pmHyperlipemiaacute[facility] 20[facility] 3:58pmHypertensive chronic kidney disease with stage 1 through stage 4 [facility] 2024 3:58pm [facility] Work Phone: Evaluation note* Diagnosis Traumatic complete tear of left rotator cuff, subsequent encounter- Primary Recurrent major depression in partial remission (HCC) ([facility]) Major depressive disorder, recurrent episode, in partial or unspecified remission Other hyperlipidemia EDITH (generalized anxiety disorder) ([facility]) Generalized anxiety disorder CKD (chronic kidney disease) stage 4, GFR 15-29 ml/min ([facility]) Chronic kidney disease, Stage IV (severe) Gastroesophageal reflux disease without esophagitis Esophageal reflux 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 ([facility]) Primary hypertension ([facility]) Unspecified essential hypertension Chronic obstructive pulmonary disease, unspecified COPD type ([facility]) Chronic obstructive pulmonary disease, unspecified COPD type ([facility])- Primary 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 ([facility]) CKD (chronic kidney disease) stage 4, GFR 15-29 ml/min ([facility]) Chronic kidney disease, Stage IV (severe) Gastroesophageal reflux disease without esophagitis Esophageal reflux Recurrent major depressive disorder, in full remission ([facility]) Other hyperlipidemia EDITH (generalized anxiety disorder) ([facility] Generalized anxiety disorder Recurrent major depression in partial remission (HCC) ([facility]) Major depressive disorder, recurrent episode, in partial or unspecified remission Primary hypertension ([facility] Unspecified essential hypertension Primary hypertension ([facility])- Primary Unspecified essential hypertension Other hyperlipidemia 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 ([facility]) Frequent falls Functional gait abnormality CKD (chronic kidney disease) stage 4, GFR 15-29 ml/min ([facility]) Chronic kidney disease, Stage IV (severe) Primary hypertension ([facility])- Primary Unspecified essential hypertension Chronic obstructive pulmonary disease, unspecified COPD type ([facility]) Chronic kidney disease, stage 4 (severe) ([facility]) 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 ([facility]) Gastroesophageal reflux disease without esophagitis Esophageal reflux EDITH (generalized anxiety disorder) ([facility]) Generalized anxiety disorder Recurrent major depressive disorder, in full remission ([facility]) Mixed hyperlipidemia ([facility]) Mixed hyperlipidemia MCI (mild cognitive impairment) Mild cognitive impairment, so stated Other hyperlipidemia Recurrent major depression in partial remission (HCC) ([facility]) Major depressive disorder, recurrent episode, in partial or unspecified remission Other hyperlipidemia EDITH (generalized anxiety disorder) ([facility]) Generalized anxiety disorder Recurrent major depression in partial remission (HCC) ([facility]) Major depressive disorder, recurrent episode, in partial or unspecified remission documented in this encounter [facility] HealthcareEvaluation note* Diagnosis Traumatic complete tear of left rotator cuff, subsequent encounter- Primary Recurrent major depression in partial remission (HCC) ([facility]) Major depressive disorder, recurrent episode, in partial or unspecified remission Other hyperlipidemia EDITH (generalized anxiety disorder) ([facility]) Generalized anxiety disorder CKD (chronic kidney disease) stage 4, GFR 15-29 ml/min ([facility]) Chronic kidney disease, Stage IV (severe) Gastroesophageal reflux disease without esophagitis Esophageal reflux 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 ([facility]) Primary hypertension ([facility]) Unspecified essential hypertension Chronic obstructive pulmonary disease, unspecified COPD type ([facility]) Chronic obstructive pulmonary disease, unspecified COPD type ([facility])- Primary 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 ([facility]) CKD (chronic kidney disease) stage 4, GFR 15-29 ml/min ([facility]) Chronic kidney disease, Stage IV (severe) Gastroesophageal reflux disease without esophagitis Esophageal reflux Recurrent major depressive disorder, in full remission ([facility]) Other hyperlipidemia EDITH (generalized anxiety disorder) ([facility] Generalized anxiety disorder Recurrent major depression in partial remission (HCC) ([facility]) Major depressive disorder, recurrent episode, in partial or unspecified remission Primary hypertension ([facility] Unspecified essential hypertension Primary hypertension ([facility])- Primary Unspecified essential hypertension Other hyperlipidemia 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 ([facility]) Frequent falls Functional gait abnormality CKD (chronic kidney disease) stage 4, GFR 15-29 ml/min ([facility]) Chronic kidney disease, Stage IV (severe) Primary hypertension ([facility])- Primary Unspecified essential hypertension Chronic obstructive pulmonary disease, unspecified COPD type ([facility]) Chronic kidney disease, stage 4 (severe) ([facility] 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 ([facility]) Gastroesophageal reflux disease without esophagitis Esophageal reflux EDITH (generalized anxiety disorder) ([facility]) Generalized anxiety disorder Recurrent major depressive disorder, in full remission ([facility]) Mixed hyperlipidemia ([facility]) Mixed hyperlipidemia MCI (mild cognitive impairment) Mild cognitive impairment, so stated Other hyperlipidemia Recurrent major depression in partial remission (HCC) ([facility]) Major depressive disorder, recurrent episode, in partial or unspecified remission Primary hypertension ([facility]) Unspecified essential hypertension Other hyperlipidemia Recurrent major depression in partial remission (HCC) ([facility]) Major depressive disorder, recurrent episode, in partial or unspecified remission 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 ([facility]) Gastroesophageal reflux disease without esophagitis Esophageal reflux EDITH (generalized anxiety disorder) ([facility]) Generalized anxiety disorder documented in this encounter [facility]* Diagnosis Traumatic complete tear of left rotator cuff, subsequent encounter- Primary Recurrent major depression in partial remission (HCC) ([facility]) Major depressive disorder, recurrent episode, in partial or unspecified remission Other hyperlipidemia EDITH (generalized anxiety disorder) ([facility]) Generalized anxiety disorder CKD (chronic kidney disease) stage 4, GFR 15-29 ml/min ([facility]) Chronic kidney disease, Stage IV (severe) Gastroesophageal reflux disease without esophagitis Esophageal reflux 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 ([facility]) Primary hypertension ([facility]) Unspecified essential hypertension Chronic obstructive pulmonary disease, unspecified COPD type ([facility]) Chronic obstructive pulmonary disease, unspecified COPD type ([facility])- Primary 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 ([facility]) CKD (chronic kidney disease) stage 4, GFR 15-29 ml/min ([facility]) Chronic kidney disease, Stage IV (severe) Gastroesophageal reflux disease without esophagitis Esophageal reflux Recurrent major depressive disorder, in full remission ([facility]) Other hyperlipidemia EDITH (generalized anxiety disorder) ([facility] Generalized anxiety disorder Recurrent major depression in partial remission (HCC) ([facility]) Major depressive disorder, recurrent episode, in partial or unspecified remission Primary hypertension ([facility] Unspecified essential hypertension Primary hypertension ([facility])- Primary Unspecified essential hypertension Other hyperlipidemia 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 ([facility]) Frequent falls Functional gait abnormality CKD (chronic kidney disease) stage 4, GFR 15-29 ml/min ([facility]) Chronic kidney disease, Stage IV (severe) Primary hypertension ([facility])- Primary Unspecified essential hypertension Chronic obstructive pulmonary disease, unspecified COPD type ([facility]) Chronic kidney disease, stage 4 (severe) ([facility]) 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 ([facility]) Gastroesophageal reflux disease without esophagitis Esophageal reflux EDITH (generalized anxiety disorder) ([facility]) Generalized anxiety disorder Recurrent major depressive disorder, in full remission ([facility]) Mixed hyperlipidemia ([facility]) Mixed hyperlipidemia MCI (mild cognitive impairment) Mild cognitive impairment, so stated Other hyperlipidemia Recurrent major depression in partial remission (HCC) ([facility]) Major depressive disorder, recurrent episode, in partial or unspecified remission Neck pain- Primary Cervicalgia Primary hypertension ([facility]) Unspecified essential hypertension Chronic kidney disease, stage 4 (severe) ([facility]) EDITH (generalized anxiety disorder) ([facility]) Generalized anxiety disorder Functional gait abnormality MCI (mild cognitive impairment) Mild cognitive impairment, so stated documented in this encounter [facility]* Diagnosis Traumatic complete tear of left rotator cuff, subsequent encounter- Primary Recurrent major depression in partial remission (HCC) ([facility] Major depressive disorder, recurrent episode, in partial or unspecified remission Other hyperlipidemia EDITH (generalized anxiety disorder) ([facility]) Generalized anxiety disorder CKD (chronic kidney disease) stage 4, GFR 15-29 ml/min ([facility]) Chronic kidney disease, Stage IV (severe) Gastroesophageal reflux disease without esophagitis Esophageal reflux 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 ([facility] Primary hypertension ([facility]) Unspecified essential hypertension Chronic obstructive pulmonary disease, unspecified COPD type ([facility]) Chronic obstructive pulmonary disease, unspecified COPD type ([facility] Primary 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 ([facility]) CKD (chronic kidney disease) stage 4, GFR 15-29 ml/min ([facility]) Chronic kidney disease, Stage IV (severe) Gastroesophageal reflux disease without esophagitis Esophageal reflux Recurrent major depressive disorder, in full remission ([facility]) Other hyperlipidemia EDITH (generalized anxiety disorder) ([facility]) Generalized anxiety disorder Recurrent major depression in partial remission (HCC) ([facility]) Major depressive disorder, recurrent episode, in partial or unspecified remission Primary hypertension ([facility] Unspecified essential hypertension Primary hypertension ([facility] Primary Unspecified essential hypertension Other hyperlipidemia 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 ([facility]) Frequent falls Functional gait abnormality CKD (chronic kidney disease) stage 4, GFR 15-29 ml/min ([facility]) Chronic kidney disease, Stage IV (severe) Primary hypertension ([facility] Primary Unspecified essential hypertension Chronic obstructive pulmonary disease, unspecified COPD type ([facility]) Chronic kidney disease, stage 4 (severe) ([facility]) 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 ([facility]) Gastroesophageal reflux disease without esophagitis Esophageal reflux EDITH (generalized anxiety disorder) ([facility]) Generalized anxiety disorder Recurrent major depressive disorder, in full remission ([facility]) Mixed hyperlipidemia ([facility]) Mixed hyperlipidemia MCI (mild cognitive impairment) Mild cognitive impairment, so stated Other hyperlipidemia Recurrent major depression in partial remission (HCC) ([facility]) Major depressive disorder, recurrent episode, in partial or unspecified remission Neck pain- Primary Cervicalgia Primary hypertension ([facility]) Unspecified essential hypertension Chronic kidney disease, stage 4 (severe) ([facility]) EDITH (generalized anxiety disorder) ([facility]) Generalized anxiety disorder Functional gait abnormality MCI (mild cognitive impairment) Mild cognitive impairment, so stated EDITH (generalized anxiety disorder) ([facility])- Primary Generalized anxiety disorder documented in this encounter [facility]* Diagnosis Traumatic complete tear of left rotator cuff, subsequent encounter- Primary Recurrent major depression in partial remission (HCC) ([facility]) Major depressive disorder, recurrent episode, in partial or unspecified remission Other hyperlipidemia EDITH (generalized anxiety disorder) ([facility]) Generalized anxiety disorder CKD (chronic kidney disease) stage 4, GFR 15-29 ml/min ([facility]) Chronic kidney disease, Stage IV (severe) Gastroesophageal reflux disease without esophagitis Esophageal reflux 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 ([facility]) Primary hypertension ([facility]) Unspecified essential hypertension Chronic obstructive pulmonary disease, unspecified COPD type ([facility]) Chronic obstructive pulmonary disease, unspecified COPD type ([facility])- Primary 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 ([facility]) CKD (chronic kidney disease) stage 4, GFR 15-29 ml/min ([facility]) Chronic kidney disease, Stage IV (severe) Gastroesophageal reflux disease without esophagitis Esophageal reflux Recurrent major depressive disorder, in full remission ([facility]) Other hyperlipidemia EDITH (generalized anxiety disorder) ([facility] Generalized anxiety disorder Recurrent major depression in partial remission (HCC) ([facility]) Major depressive disorder, recurrent episode, in partial or unspecified remission Primary hypertension ([facility] Unspecified essential hypertension Primary hypertension ([facility])- Primary Unspecified essential hypertension Other hyperlipidemia 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 ([facility]) Frequent falls Functional gait abnormality CKD (chronic kidney disease) stage 4, GFR 15-29 ml/min ([facility]) Chronic kidney disease, Stage IV (severe) Primary hypertension ([facility])- Primary Unspecified essential hypertension Chronic obstructive pulmonary disease, unspecified COPD type ([facility]) Chronic kidney disease, stage 4 (severe) ([facility]) 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 ([facility]) Gastroesophageal reflux disease without esophagitis Esophageal reflux EDITH (generalized anxiety disorder) ([facility]) Generalized anxiety disorder Recurrent major depressive disorder, in full remission ([facility]) Mixed hyperlipidemia ([facility]) Mixed hyperlipidemia MCI (mild cognitive impairment) Mild cognitive impairment, so stated Other hyperlipidemia Recurrent major depression in partial remission (HCC) ([facility]) Major depressive disorder, recurrent episode, in partial or unspecified remission Neck pain- Primary Cervicalgia Primary hypertension ([facility]) Unspecified essential hypertension Chronic kidney disease, stage 4 (severe) ([facility]) EDITH (generalized anxiety disorder) ([facility]) Generalized anxiety disorder Functional gait abnormality MCI (mild cognitive impairment) Mild cognitive impairment, so stated Other hyperlipidemia 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 ([facility] Primary hypertension ([facility] Unspecified essential hypertension Recurrent major depression in partial remission (HCC) ([facility]) Major depressive disorder, recurrent episode, in partial or unspecified remission EDITH (generalized anxiety disorder) ([facility]) Generalized anxiety disorder documented in this encounter [facility]* Diagnosis Traumatic complete tear of left rotator cuff, subsequent encounter- Primary Recurrent major depression in partial remission (HCC) ([facility]) Major depressive disorder, recurrent episode, in partial or unspecified remission Other hyperlipidemia EDITH (generalized anxiety disorder) ([facility]) Generalized anxiety disorder CKD (chronic kidney disease) stage 4, GFR 15-29 ml/min ([facility]) Chronic kidney disease, Stage IV (severe) Gastroesophageal reflux disease without esophagitis Esophageal reflux 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 ([facility]) Primary hypertension ([facility]) Unspecified essential hypertension Chronic obstructive pulmonary disease, unspecified COPD type ([facility]) Chronic obstructive pulmonary disease, unspecified COPD type ([facility])- Primary 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 ([facility]) CKD (chronic kidney disease) stage 4, GFR 15-29 ml/min ([facility]) Chronic kidney disease, Stage IV (severe) Gastroesophageal reflux disease without esophagitis Esophageal reflux Recurrent major depressive disorder, in full remission ([facility]) Other hyperlipidemia EDITH (generalized anxiety disorder) ([facility] Generalized anxiety disorder Recurrent major depression in partial remission (HCC) ([facility]) Major depressive disorder, recurrent episode, in partial or unspecified remission Primary hypertension ([facility] Unspecified essential hypertension Primary hypertension ([facility])- Primary Unspecified essential hypertension Other hyperlipidemia 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 ([facility]) Frequent falls Functional gait abnormality CKD (chronic kidney disease) stage 4, GFR 15-29 ml/min ([facility]) Chronic kidney disease, Stage IV (severe) Primary hypertension ([facility])- Primary Unspecified essential hypertension Chronic obstructive pulmonary disease, unspecified COPD type ([facility]) Chronic kidney disease, stage 4 (severe) ([facility]) 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 ([facility]) Gastroesophageal reflux disease without esophagitis Esophageal reflux EDITH (generalized anxiety disorder) ([facility]) Generalized anxiety disorder Recurrent major depressive disorder, in full remission ([facility]) Mixed hyperlipidemia ([facility]) Mixed hyperlipidemia MCI (mild cognitive impairment) Mild cognitive impairment, so stated Other hyperlipidemia Recurrent major depression in partial remission (HCC) ([facility]) Major depressive disorder, recurrent episode, in partial or unspecified remission Neck pain- Primary Cervicalgia Primary hypertension ([facility]) Unspecified essential hypertension Chronic kidney disease, stage 4 (severe) ([facility]) EDITH (generalized anxiety disorder) ([facility]) Generalized anxiety disorder Functional gait abnormality MCI (mild cognitive impairment) Mild cognitive impairment, so stated Primary hypertension ([facility] Unspecified essential hypertension Other hyperlipidemia Neck pain Cervicalgia Recurrent major depression in partial remission (HCC) ([facility]) Major depressive disorder, recurrent episode, in partial or unspecified remission 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 ([facility]) Gastroesophageal reflux disease without esophagitis Esophageal reflux Chronic obstructive pulmonary disease, unspecified COPD type ([facility]) EDITH (generalized anxiety disorder) ([facility] Generalized anxiety disorder documented in this encounter [facility] HealthcareEvaluation note* Diagnosis Traumatic complete tear of left rotator cuff, subsequent encounter- Primary Recurrent major depression in partial remission (HCC) ([facility]) Major depressive disorder, recurrent episode, in partial or unspecified remission Other hyperlipidemia EDITH (generalized anxiety disorder) ([facility]) Generalized anxiety disorder CKD (chronic kidney disease) stage 4, GFR 15-29 ml/min ([facility]) Chronic kidney disease, Stage IV (severe) Gastroesophageal reflux disease without esophagitis Esophageal reflux 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 ([facility]) Primary hypertension ([facility]) Unspecified essential hypertension Chronic obstructive pulmonary disease, unspecified COPD type ([facility]) Chronic obstructive pulmonary disease, unspecified COPD type ([facility] Primary 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 [facility] [facility] CKD (chronic kidney disease) stage 4, GFR 15-29 ml/min ([facility]) Chronic kidney disease, Stage IV (severe) Gastroesophageal reflux disease without esophagitis Esophageal reflux Recurrent major depressive disorder, in full remission ([facility]) Other hyperlipidemia EDITH (generalized anxiety disorder) ([facility]) Generalized anxiety disorder Recurrent major depression in partial remission (HCC) ([facility]) Major depressive disorder, recurrent episode, in partial or unspecified remission Primary hypertension ([facility]) Unspecified essential hypertension Primary hypertension ([facility])- Primary Unspecified essential hypertension Other hyperlipidemia 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 ([facility]) Frequent falls Functional gait abnormality CKD (chronic kidney disease) stage 4, GFR 15-29 ml/min ([facility]) Chronic kidney disease, Stage IV (severe) Primary hypertension ([facility])- Primary Unspecified essential hypertension Chronic obstructive pulmonary disease, unspecified COPD type ([facility]) Chronic kidney disease, stage 4 (severe) ([facility]) 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 ([facility]) Gastroesophageal reflux disease without esophagitis Esophageal reflux EDITH (generalized anxiety disorder) ([facility]) Generalized anxiety disorder Recurrent major depressive disorder, in full remission ([facility]) Mixed hyperlipidemia ([facility]) Mixed hyperlipidemia MCI (mild cognitive impairment) Mild cognitive impairment, so stated Other hyperlipidemia Recurrent major depression in partial remission (HCC) ([facility]) Major depressive disorder, recurrent episode, in partial or unspecified remission Neck pain- Primary Cervicalgia Primary hypertension ([facility]) Unspecified essential hypertension Chronic kidney disease, stage 4 (severe) ([facility]) EDITH (generalized anxiety disorder) ([facility]) Generalized anxiety disorder Functional gait abnormality MCI (mild cognitive impairment) Mild cognitive impairment, so stated Neck pain- Primary Cervicalgia [facility] Diagnosis Traumatic complete tear of left rotator cuff, subsequent encounter- Primary Recurrent major depression in partial remission (HCC) ([facility]) Major depressive disorder, recurrent episode, in partial or unspecified remission Other hyperlipidemia EDITH (generalized anxiety disorder) ([facility]) Generalized anxiety disorder CKD (chronic kidney disease) stage 4, GFR 15-29 ml/min ([facility]) Chronic kidney disease, Stage IV (severe) Gastroesophageal reflux disease without esophagitis Esophageal reflux 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 ([facility]) Primary hypertension ([facility]) Unspecified essential hypertension Chronic obstructive pulmonary disease, unspecified COPD type ([facility]) Chronic obstructive pulmonary disease, unspecified COPD type ([facility])- Primary 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 ([facility]) CKD (chronic kidney disease) stage 4, GFR 15-29 ml/min ([facility]) Chronic kidney disease, Stage IV (severe) Gastroesophageal reflux disease without esophagitis Esophageal reflux Recurrent major depressive disorder, in full remission ([facility]) Other hyperlipidemia EDITH (generalized anxiety disorder) ([facility] Generalized anxiety disorder Recurrent major depression in partial remission (HCC) ([facility]) Major depressive disorder, recurrent episode, in partial or unspecified remission Primary hypertension ([facility]) Unspecified essential hypertension Primary hypertension ([facility] Primary Unspecified essential hypertension Other hyperlipidemia 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 ([facility]) Frequent falls Functional gait abnormality CKD (chronic kidney disease) stage 4, GFR 15-29 ml/min ([facility]) Chronic kidney disease, Stage IV (severe) Primary hypertension ([facility])- Primary Unspecified essential hypertension Chronic obstructive pulmonary disease, unspecified COPD type ([facility]) Chronic kidney disease, stage 4 (severe) ([facility]) 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 ([facility]) Gastroesophageal reflux disease without esophagitis Esophageal reflux EDITH (generalized anxiety disorder) ([facility]) Generalized anxiety disorder Recurrent major depressive disorder, in full remission ([facility]) Mixed hyperlipidemia ([facility]) Mixed hyperlipidemia MCI (mild cognitive impairment) Mild cognitive impairment, so stated Other hyperlipidemia Recurrent major depression in partial remission (HCC) ([facility]) Major depressive disorder, recurrent episode, in partial or unspecified remission Neck pain- Primary Cervicalgia Primary hypertension ([facility]) Unspecified essential hypertension Chronic kidney disease, stage 4 (severe) ([facility]) EDITH (generalized anxiety disorder) ([facility]) Generalized anxiety disorder Functional gait abnormality MCI (mild cognitive impairment) Mild cognitive impairment, so stated Cervical spondylosis- Primary Cervical spondylosis without myelopathy Neck pain Cervicalgia Primary hypertension ([facility]) Unspecified essential hypertension Chronic kidney disease, stage 4 (severe) ([facility]) EDITH (generalized anxiety disorder) ([facility]) Generalized anxiety disorder H/O: lung cancer Personal history of malignant neoplasm of bronchus and lung MCI (mild cognitive impairment) Mild cognitive impairment, so stated [facility] Diagnosis Cervical spondylosis- Primary Cervical spondylosis without myelopathy Cervical spondylosis- Primary Cervical spondylosis without myelopathy Cervical spondylosis Cervical spondylosis without myelopathy documented in this encounter [facility]* Diagnosis Traumatic complete tear of left rotator cuff, subsequent encounter- Primary Recurrent major depression in partial remission Major depressive disorder, recurrent episode, in partial or unspecified remission Other hyperlipidemia EDITH (generalized anxiety disorder) Generalized anxiety disorder CKD (chronic kidney disease) stage 4, GFR 15-29 ml/min ([facility]) Chronic kidney disease, Stage IV (severe) Gastroesophageal reflux disease without esophagitis Esophageal reflux 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 Primary hypertension Unspecified essential hypertension Chronic obstructive pulmonary disease, unspecified COPD type ([facility]) Chronic obstructive pulmonary disease, unspecified COPD type (HCC)- Primary 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 CKD (chronic kidney disease) stage 4, GFR 15-29 ml/min ([facility]) Chronic kidney disease, Stage IV (severe) Gastroesophageal reflux disease without esophagitis Esophageal reflux Recurrent major depressive disorder, in full remission Other hyperlipidemia EDITH (generalized anxiety disorder) Generalized anxiety disorder Recurrent major depression in partial remission Major depressive disorder, recurrent episode, in partial or unspecified remission Primary hypertension Unspecified essential hypertension Primary hypertension- Primary Unspecified essential hypertension Other hyperlipidemia 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 Frequent falls Functional gait abnormality CKD (chronic kidney disease) stage 4, GFR 15-29 ml/min ([facility]) Chronic kidney disease, Stage IV (severe) Primary hypertension- Primary Unspecified essential hypertension Chronic obstructive pulmonary disease, unspecified COPD type (HCC) Chronic kidney disease, stage 4 (severe) ([facility]) 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 Gastroesophageal reflux disease [...] Unspecified essential hypertension 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 Chronic kidney disease, stage 4 (severe) (HCC) Pulmonary hypertension (HCC) Other chronic pulmonary heart diseases EDITH (generalized anxiety disorder) Generalized anxiety disorder Other hyperlipidemia Neck pain Cervicalgia Recurrent major depression in partial remission Major depressive disorder, recurrent episode, in partial or unspecified remission Gastroesophageal reflux disease without esophagitis Esophageal reflux Chronic obstructive pulmonary disease, unspecified COPD type ([facility]) [facility] Diagnosis Cervical spondylosis- Primary Cervical spondylosis without myelopathy documented in this encounter [facility]* Diagnosis Dyspnea and respiratory abnormalities- Primary Other dyspnea and respiratory abnormality Centrilobular emphysema (HCC) Other emphysema Class 1 obesity due to excess calories with serious comorbidity and body mass index (BMI) of 32.0 to 32.9 in adult Sleep-disordered breathing Other sleep disturbances 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- Primary Hx of [...] stated [facility] Diagnosis Dyspnea and respiratory abnormalities- Primary Other dyspnea and respiratory abnormality Centrilobular emphysema (HCC) Other emphysema Class 1 obesity due to excess calories with serious comorbidity and body mass index (BMI) of 32.0 to 32.9 in adult Sleep-disordered breathing Other sleep disturbances Chronic heart failure with preserved ejection fraction (HCC)- Primary documented in this encounter [facility] general Narrative - Reported* Type Description Date Medical History hypertension Medical HistoryhypercholesterolemiaMedical Historylung cancerMedical History heart diseaseMedical HistoryA flutterMedical HistoryEsophageal refluxMedical HistoryDEPRESSION AND ANXIETYSurgical HistoryCABGSurgical HistoryherniaSurgical Historylobectomy: lungSurgical HistoryFR/Dr Joshi--hernia repair10/2020 Hospitalization Historysee above [employer] Other History general Narrative - ReportedNort [employer] Other HisBeintoo general Narrative - [facility]ortedNosaint [facility] [employer] Other InstructionsNot on filedocumented in this encounter [facility] SystemReason for referral (narrative)* Reason * Waiting for appt pulmonology, lung nodule, progressive SOB, hx. lung cancer Diagnosis 1 Pulmonary nodule (R9 1.1) Referral Organization [facility]y [facility] Referring Provider First Name Cristo Referring Provider Last Name Gabriele Referring Provider Specialty Family Medi cine Referred Organization [facility] Referred Provider Gonsalo Hawley Referred Address [address] [place] [phone] Referred Provider Specialty Pulmonary Marium briseno Referral Priority Routine General Notes Mattie Carballo 01:40:04 PM >referral received and sent p2p successful per log [employer] Other Reason for referral (narrative)* Outpatient Procedure (Routine) - Pending ReviewSpecialtyDiagnoses / ProceduresReferred By Contact Referred To ContactRESPIRATORY INSTITUTE Diagnoses Shortness of breath Procedures SPIROMETRY WITH DILATOR IF OBSTRUCTED BRNCDILAT RSPSE SPMTRY PRE&POST-BRNCDILAT ADMMarisol Abdul MD [address] [place] [address] [address] [place] [address] [place] [address] Referral IDStatusReasonStart DateExpiration DateVisits RequestedVisits [id number] Review Auto-Generated Referral / [place] for visit NarrativeRef by Dr. Suazo for pulmonology, lung nodule, progressive SOB, hx. lung cancerHarrison [employer] Other Summary Purpose Family History No Family [...] July 6:23pm Hospital Course Note MR#: [id number] [facility] Pt. Name: Kel Castillo Admitted: 10/05/2019 [...] STEM W/[place] [address] [place] [address] Mr Imaging Referral IDStatusReasonStart DateExpiration DateVisits RequestedVisits [id number] Auto-Generated Referral /[id number] / ProceduresReferred By ContactReferred To ContactMR IMAGING Diagnoses Cognitive impairment, mild, so stated Procedures MRI 3D POST PROCESSING 3D RENDERING W/INTERP&POSTPROC DIFF WORK STATION Alonzo Cabrera MD, [address] [place] [address] Mr Imaging Referral IDStatusReasonStart DateExpiration DateVisits RequestedVisits [id number] Review Auto-Generated Referral 1Referral IDStatusReasonStart DateExpiration DateVisits RequestedVisits [id number] Auto-Generated Referral /[id number] / ProceduresReferred By ContactReferred To ContactPsychology Diagnoses Recurrent major depression in partial remission (HCC) Procedures CONSULT TO PSYCHOLOGY OFFICE/OUTPATIENT [facility] MDM 60-74 MINUTES Eun Kaufman DO [address] [place] [address] Referral IDStatusReasonStart DateExpiration DateVisits RequestedVisits [id number] Review PCP Requested Referral [id number] / ProceduresReferred By ContactReferred To ContactREHAB AND SPORTS THERAPY INS Diagnoses Abnormality of gait Procedures CONSULT TO PHYSICAL THERAPY PHYSICAL THERAPY EVALUATION HIGH COMPLEX 45 MINS Eun Trent DO [address] [place] [address] [place] [address] Referral IDStatusReasonBranford DateExpiration DateVisits RequestedVisits [id number] Review Auto-Generated Referral [id number] / ProceduresReferred By ContactReferred To ContactCT IMAGING Diagnoses Memory loss Procedures CT BRAIN WO IVCON CT HEAD/BRAIN W/O CONTRAST MATERIAL Mandeep LatashaEun, [place] [address] [facility] [place] [address] Referral IDStatusReasonStart DateExpiration DateVisits RequestedVisits [id number] Auto-Generated Referral [id number] / ProceduresReferred By ContactReferred To Contact Diagnoses Memory loss Procedures NEUROPSYCHOLOGICAL TESTING CONSULT NEUROBEHAVIORAL STATUS XM PHYS/QHP 1ST HOUR NEUROPSYCHOLOGICAL TST EVAL PHYS/QHP 1ST HOUR NEUROPSYCHOLOGICAL TST EVAL PHYS/QHP EA ADDL HR PSYCL/NRPSYCL TST TECH 2+ TST 1ST 30 MIN PSYCL/NRPSYCL TST TECH 2+ TST EA ADDL 30 MIN Mandeep Latasha Eun, [address] [place] [id number] Referral IDStatusReasonStart DateExpiration DateVisits RequestedVisits [id number] Not Required PCP Requested Referral Referral IDStatusReasonStart DateExpiration DateVisits RequestedVisits [id number] Auto-Generated Referral Chief Complaint and Reason for Visit Chief Complaint g47.30 Chief Complaint RENAL 6 MONTH F/U Reason for Visit Anemia CAD (coronary artery disease) of artery bypass graft Chronic kidney disease, stage 3b Hyperkalemia Hyperlipemia [id number] Chief Complaint Admit Date RENAL 6 MONTH [...] section and content) DATE CREATED AUTHOR 04/05/2018 [facility] DATE CREATED AUTHOR AUTHOR'S ORGANIZ ATION 01/06/[address] [facility] DATE CREATED AUTHOR AUTHOR'S ORGANIZ ATION 12/19/2022 [facility] DATE CREATED AUTHOR AUTHOR'S ORGANIZ ATION 04/22/2023 [facility] DATE CREATED AUTHOR AUTHOR'S ORGANIZ ATION 03/04/2024 [place] DATE CREATED AUTHOR AUTHOR'S ORGANIZ ATION 05/13/2024 [facility] DATE CREATED AUTHOR AUTHOR'S ORGANIZ ATION 03/03/2025 [facility] DATE CREATED AUTHOR AUTHOR'S ORGANIZ ATION 04/07/2025 [facility] DATE CREATED AUTHOR AUTHOR'S ORGANIZ ATION 04/07/2025 [facility] DATE CREATED AUTHOR AUTHOR'S ORGANIZ ATION 04/30/2025 [facility] DATE CREATED AUTHOR AUTHOR'S ORGANIZ ATION 06/21/2025 [facility] Source Comments (unrecognize d section and content) In the event this informatio n is protected by the Federal Confidentiality of Alcohol and Drug Abuse Patient Records regulations: The Federal rules restrict any use of the information to criminally investigate or prosecute any alcohol or drug abuse patient.[facility] CenterIn the event this information is protected by the Federal Confidentiality of Alcohol and Drug Abuse Patient Records regulations: The Federal rules restrict any use of the information to criminally investigate or prosecute any alcohol or drug abuse patient.[facility] CenterIn the event this information is protected by the Federal Confidentiality of Alcohol and Drug Abuse Patient Records regulations: The Federal rules restrict any use of the information to criminally investigate or prosecute any alcohol or drug abuse patient.[facility] CenterIn the event this information is protected by the Federal Confidentiality of Alcohol and Drug Abuse Patient Records regulations: The Federal rules restrict any use of the information to criminally investigate or prosecute any alcohol or drug abuse patient.[facility] CenterIn the event this information is protected by the Federal Confidentiality of Alcohol and Drug Abuse Patient Records regulations: The Federal rules restrict any use of the information to criminally investigate or prosecute any alcohol or drug abuse patient.[facility] CenterIn the event this information is protected by the Federal Confidentiality of Alcohol and Drug Abuse Patient Records regulations: The Federal rules restrict any use of the information to criminally investigate or prosecute any alcohol or drug abuse patient.[facility] CenterIn the event this information is protected by the Federal Confidentiality of Alcohol and Drug Abuse Patient Records regulations: The Federal rules restrict any use of the information to criminally investigate or prosecute any alcohol or drug abuse patient.[facility] CenterIn the event this information is protected by the Federal Confidentiality of Alcohol and Drug Abuse Patient Records regulations: The Federal rules restrict any use of the information to criminally investigate or prosecute any alcohol or drug abuse patient.[facility] CenterIn the event this information is protected by the Federal Confidentiality of Alcohol and Drug Abuse Patient Records regulations: The Federal rules restrict any use of the information to criminally investigate or prosecute any alcohol or drug abuse patient.[facility] CenterIn the event this information is protected by the Federal Confidentiality of Alcohol and Drug Abuse Patient Records regulations: The Federal rules restrict any use of the information to criminally investigate or prosecute any alcohol or drug abuse patient.[facility] CenterIn the event this information is protected by the Federal Confidentiality of Alcohol and Drug Abuse Patient Records regulations: The Federal rules restrict any use of the information to criminally investigate or prosecute any alcohol or drug abuse patient.[facility] CenterIn the event this information is protected by the Federal Confidentiality of Alcohol and Drug Abuse Patient Records regulations: The Federal rules restrict any use of the information to criminally investigate or prosecute any alcohol or drug abuse patient.[facility] CenterIn the event this information is protected by the Federal Confidentiality of Alcohol and Drug Abuse Patient Records regulations: The Federal rules restrict any use of the information to criminally investigate or prosecute any alcohol or drug abuse patient.[facility] CenterIn the event this information is protected by the Federal Confidentiality of Alcohol and Drug Abuse Patient Records regulations: The Federal rules restrict any use of the information to criminally investigate or prosecute any alcohol or drug abuse patient.[facility] CenterIn the event this information is protected by the Federal Confidentiality of Alcohol and Drug Abuse Patient Records regulations: The Federal rules restrict any use of the information to criminally investigate or prosecute any alcohol or drug abuse patient.[facility] CenterIn the event this information is protected by the Federal Confidentiality of Alcohol and Drug Abuse Patient Records regulations: The Federal rules restrict any use of the information to criminally investigate or prosecute any alcohol or drug abuse patient.[facility] Reason for Visit (unrecogniz ed section and content) ReasonCommentsNew PatientMemory lossSpecialtyDiagnoses / ProceduresReferred By ContactReferred To ContactMR IMAGING Diagnoses Cognitive impairment, mild, so stated 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) Depression, unspecified depression type Procedures MRI BRAIN WO IVCON MRI BRAIN BRAIN STEM W/[place] [address] [place] [address] Mr Imaging Referral IDStatusReasonStart DateExpiration DateVisits RequestedVisits [id number] Auto-Generated Referral /[id number]SrhcfzlgfDsozsinxt / Procedures Referred By ContactReferred To ContactTOHATCHI HEALTH CARE CENTERIRATORY INSTITUTE Diagnoses Shortness of breath Procedures SPIROMETRY WITH DILATOR IF OBSTRUCTED BRNCDILAT RSPSE SPMTRY PRE&POST-BRNCDILAT Marisol Olivares MD [address] [place] [id number] [facility] [address] [place] [address] Referral IDStatusReasonStart DateExpiration DateVisits RequestedVisits [id number] Auto-Generated Referral [id number] Patient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)ReasonCommentsCare Coordinator - OtherIn response to order placed in EPICReasonCommentsEstablished PatientReasonComments Follow-upMEDS/SHOULDERReasonCommentsEstablished PatientFollow UpSpecialty Diagnoses / ProceduresReferred By ContactReferred To ContactNeurology / NEUROLOGY Diagnoses Follow-up exam Follow up Procedures OFFICE/OUTPATIENT ESTABLISHED HIGH MDM 40 MIN EST NI PATIENT Self Eun Trent, DO [address] [place] [address] Referral IDStatusReasonStart DateExpiration DateVisits RequestedVisits [id number] Financial Clearance Not Required Patient Cleared - INN Insurance Found [id number] / ProceduresReferred By Contact Referred To ContactCT IMAGING Diagnoses Memory loss Procedures CT BRAIN WO IVCON CT HEAD/BRAIN W/O CONTRAST MATERIAL Eun Trent, DO [address] [place] [address] Ct Imaging [place] [address] Referral IDStatusReasonStpeytona DateExpiration DateVisits RequestedVisits [id number] Auto-Generated Referral [id number] RefillSpecialtyDiagnoses / Procedures Referred By ContactReferred To Contact Diagnoses Memory loss Procedures NEUROPSYCHOLOGICAL TESTING CONSULT NEUROBEHAVIORAL STATUS XM PHYS/QHP 1ST HOUR NEUROPSYCHOLOGICAL TST EVAL PHYS/QHP 1ST HOUR NEUROPSYCHOLOGICAL TST EVAL PHYS/QHP EA ADDL HR PSYCL/NRPSYCL TST TECH 2+ TST 1ST 30 MIN PSYCL/NRPSYCL TST TECH 2+ TST EA ADDL 30 MIN Eun Trent, DO [address] [place] [address] Referral IDStatusReasonStart DateExpiration DateVisits RequestedVisits [id number] PCP Requested Referral [id number]dfFxetpiGjbcanunDjysqy-kvUzwlcy CommentsNeck PainReasonCommentsHypertensionReasonCommentsNew PatientCADReason Onset CoiiTvslobunMtvvvji15/22/2025ReasonCommentsCare Coordinator - Other Care Teams (unrecognized sec tion and content) Team MemberRelationshipSpecialtyStart DateEnd Date [facility] smithThomas [address] [place] [address] [place] Referring TeamPsychiatry12/21/21Team MemberRelationshipSpecialtyStart DateEnd Date [facility] [address] [place] [address] [place] Referring TeamPsychiatry12/21/21Team MemberRelationshipSpecialtyStart DateEnd Date [facility] [address] [place] [address] NI Referring TeamPsychiatry12/21/21Team MemberRelationshipSpecialtyStart DateEnd Date GenesisMirtha smithThomas [address] [place] [address] NI Referring TeamPsychiatry12/21/21Team MemberRelationshipSpecialtyStart DateEnd Date [facility] [address] [place] [address] NI Referring TeamPsychiatry12/21/21Team MemberRelationshipSpecialtyStart DateEnd Date [facility] [address] [place] [address] NI Referring TeamPsychiatry12/21/21Team MemberRelationshipSpecialtyStart DateEnd Date [facility] [address] [place] [address] NI Referring TeamPsychiatry12/21/21 Team Status: Inactive Member Role Status Dates Corona Monroe MD Attending Provider Active Casper Cooper Care ProviderActive Team Status: Active Member Role Status Dates Daria Cardoza DO Primary Care Provider Active Team MemberRelationshipSpecialtyStart DateEnd Date Franky Hurtadoam [address] [place] [address] [place] Referring TeamPsychiatry12/21/21Team MemberRelationshipSpecialtyStart DateEnd Date Shaikh [...] Date Thomas Hurtado MD [address] [place] [address] NI Referring TeamPsychiatry12/21/21Team MemberRelationshipSpecialtyStart DateEnd Date Thomas Hurtado MD [address] [place] [address] NI Referring TeamPsychiatry12/21/21Team MemberRelationshipSpecialtyStart DateEnd Date Shaikh Grimes MD [facility] [place] [address] PCP - Aet10/11/23 Jose Beckford MD [address] [place] [address] PCP - [facility]06/09/24 Jayy Coronado, PARI [address] [place] [address] Nurse Pract[facility]er[facility]06/09/24Team MemberRelationshipSpecialtyStart DateEnd Date Shaikh Grimes MD [address] [place] [address] PCP - [facility]10/11/23 Jose Beckford MD [address] [place] [address] PCP - [facility]06/09/24 Jayy Coronado, PARI [address] [place] [address] Nurse Pract[facility]06/09/24Team MemberRelationshipSpecialtyStart DateEnd Date Shaikh Grimes MD [address] [place] [address] [facility] - [facility]10/11/23 Jose Beckford MD [address] [place] [address] PCP - [facility]06/09/24 Jayy Coronado NP [address] [place] [address] Nurse PractitionerFaidly Kxapkvnm36/29/24 Vannessa Russell MA Family Dosikjke24/01/2411Team MemberRelationshipSpecialtyStart DateEnd Date Shaikh Grimes MD [address] [place] [address] PCP - [employer]10/11/23 Jose Beckford MD [address] [place] [address] PCP - Generalmily Icmzoync78/29/24 Jayy Coronado NP [address] [place] [address] Nurse Pract[facility]06/09/24Team MemberRelationshipSpecialtyStart DateEnd Date Shaikh Grimes MD [address] [place] [address] PCP - [facility]10/11/23 Jose Beckford MD [address] [place] [address] PCP - GeneralFamily Oippqgrq12/29/24 Jayy Coronado NP [address] [place] [address] Nurse PractitionerFamily Vkmorsac91/29/24Team MemberRelationshipSpecialtyStart DateEnd Date Shaikh Grimes MD [address] [place] [address] PCP - GeneralInternal Medicine08/12/22 Shaikh Grimes MD [address] [place] [address] PCP - [employer]10/11/23Team MemberRelationshipSpecialtyStart DateEnd Date Thomas Hurtado MD [address] [place] [address] [facility] TeamPsychiatry12/21/21Team MemberRelationshipSpecialtyStart DateEnd Date Jose Beckford MD [address] [place] [address] PCP - Generalmily Wxksgipu34/29/24 Jayy Coronado NP [address] [place] [address] Nurse Practitionermily Ucoxtegm58/29/24Team MemberRelationshipSpecialtyStart DateEnd Date Jose Beckford MD [address] [place] [address] PCP - Generalmily Hebxthdn53/29/24 Jayy Coronado NP [address] [place] [address] Nurse Practitionermily Mhbzwxaq57/29/24Team MemberRelationshipSpecialtyStart DateEnd Date Thomas Hurtado MD [address] [place] [address] [place] Referring TeamPsychiatry12/21/21 Team Status: Inactive Member Role Status Dates NON STAFF Primary Care Provider Active Start: October 27, 2024 End: October 27ashish Toscano MDAttending ProviderActiveStart: October 27, 2024 End: October 27, 2024Team MemberRelationshipSpecialtyStart DateEnd Date Jose Beckford MD [address] [place] [address] [facility] - [facility] Xhezhmsb41/29/24 Jayy Coronado NP [address] Nurse PractitionerDallas County Hospitally Ijxgxjlk40/29/24Team MemberRelationshipSpecialtyStart DateEnd Date Jose Beckford MD [address] [place] [address] PCP - GeneralFami Whlobtcv27/29/24 Jayy Coronado NP [address] [place] [address] Nurse PractitionerDallas County Hospitally Ikntswhm59/29/24Team MemberRelationshipSpecialtyStart DateEnd Date Jose Beckford MD [address] [place] [address] PCP - [facility] Brbmihee10/29/24 Jayy Coronado NP [address] [place] [address] Nurse PractitionerFamily Gxtjnpgx97/29/24Team MemberRelationshipSpecialtyStart DateEnd Date Jose Beckford MD [address] [place] [address] PCP - Generalmi Khyjylpa25/29/24 Jayy Coronado NP [address] [place] [address] [facility] Practitioner[facility]06/09/24Team MemberRelationshipSpecialtyStart DateEnd Date Jose Beckford MD [address] [place] [address] PCP - [facility]Well[facility]06/09/24 Jayy Coronado NP [address] [place] [address] Nurse Practitioner[facility]06/09/24Team MemberRelationshipSpecialtyStart DateEnd Date Jose Beckford MD [address] [place] [address] PCP - Generalmi Vcefnxhc06/29/24 Jayy Coronado, PARI [address] [place] [address] Nurse Practitioner[facility]06/09/24Team MemberRelationshipSpecialtyStart DateEnd Date Jose Beckford MD [address] [place] [address] PCP - Generalmi Jocvlbba26/29/24 Jayy Coronado NP [address] [place] [address] Nurse Practitionermily Qynlzxaq33/29/24Team MemberRelationshipSpecialtyStart DateEnd Date Jose Beckford MD [address] [place] [address] PCP - GeneralFamily Sbseoxad23/29/24 Jayy Coronado NP [address] [place] [address] Nurse PractitionerMass[facility] Jatzxsti37/29/24Team MemberRelationshipSpecialtyStart DateEnd Date oJse Beckford MD [address] [place] [address] PCP - Generalmily Bmbruhrb71/29/24 Jayy Coronado NP [address] [place] [address] Nurse PractitionerMass[facility] Oohwetmj00/29/24Team MemberRelationshipSpecialtyStart DateEnd Date Jose Beckford MD [address] [place] [address] PCP - GeneralFamily Qfvwsrko43/29/24 Jayy Coronado, PARI [address] [place] [address] Nurse Practitioner[facility] Fasndmrn79/29/24Team MemberRelationshipSpecialtyStart DateEnd Date Jose Beckford MD [address] [place] [address] PCP - Generalmily Aithxieu37/29/24 Jayy Coronado NP [address] [place] [address] Nurse Practitioner[facility]06/09/24 Team Status: Inactive Member Role Status Dates NON STAFF Primary Care Provider Active Start: January 19, 2025 End: January 19Nette Gudinoending ProviderActiveStart: January 19, 2025 End: January 19, 2025Team MemberRelationshipSpecialtyStart DateEnd Date Noa Watson, LEGAL ENTITY CONTROLLER-TECHNOLOGY SPECIALIST [address] [place] [address] P[facility] - [facility]01/11/25Team MemberRelationshipSpecialtyStart Date End Date Jose Beckford MD [address] [place] [address] PCP - [facility]06/09/24 Jayy Coronado NP [address] [place] [address] Nurse Pract[facility]06/09/24Team MemberRelationshipSpecialtyStart DateEnd Date Jose Beckford MD [address] [place] [address] PCP - GeneralWell[facility]06/09/24 Jayy Coronado NP [address] [place] [address] Nurse Practitioner[facility]06/09/24Team MemberRelationshipSpecialtyStart DateEnd Date Jose Beckford MD [address] [place] [address] PCP - GeneralFamily Rkjbynma23/29/24 Jayy Coronado NP [address] [place] [address] Nurse PractitionerFamily Gtmkahpq89/29/24Team MemberRelationshipSpecialtyStart DateEnd Date Noa Watson, LEGAL ENTITY CONTROLLER-TECHNOLOGY SPECIALIST PCP - [facility] Practitioner01/11/25Team MemberRelationshipSpecialtyStart Date End Date Jose eBckford MD [address] [place] [address] PCP - Generalmily Epfdpjig88/29/24 Jayy Coronado NP [address] [place] [address] Nurse PractitionerDallas County Hospitally Jhtkbuqs02/29/24Team MemberRelationshipSpecialtyStart DateEnd Date Noa Watson, TECHNOLOGY SPECIALIST [address] [place] [address] PCP - GeneralFamily Medicine04/01/25 Thomas Hurtado MD [address] [place] [address] [place] Referring TeamPsychiatry12/21/21Team MemberRelationshipSpecialtyStart DateEnd Date Noa Watson, TECHNOLOGY SPECIALIST [address] [place] [address] PCP - GeneralFamily Medicine04/01/25 Thomas Hurtado MD [address] [place] [address] NI Referring TeamPsychiatry12/21/21Team MemberRelationshipSpecialtyStart DateEnd Date Noa Watson MÓNICA Clancy [address] [place] [address] PCP - GeneralFamily Medicine04/01/25 Thomas Hurtado MD [address] [place] [address] NI Referring TeamPsychiatry12/21/21Team MemberRelationshipSpecialtyStart DateEnd Date Shaikh Grimes MD PCP - GeneralInternal Medicine08/12/2309 Shaikh Grimes MD [address] [place] [address] PCP - [employer]/ Jose Beckford MD [address] [place] [address] PCP - GeneralFamily Ynmucgks99/29/24 Jayy Coronado NP [address] [place] [address] Nurse Practitionermily Acesbutf66/29/24 Vannessa Russell, MINESH [address] [place] [address] Family Gyhesmsu77/6/2411 Goals (unrecognized section and content) Goals may [...] BE BASED ON THE PRIMARY CLINICAL RECORDS. [facility]. provides no warranty or guarantee of the accuracy or completeness of information in this document.
[2025-07-13 02:03] LABS: Glucose Urine UA NEGATIVE (NEGATIVE)
[2025-07-13 02:16] LABS: Cast Seen? NONE SEEN #/LPF (NONE SEEN); Crystals Seen? None Seen #/HPF (None Seen); Urine Culture Indicated NO
[2025-07-13] MEDS: ASPIRIN 81 MG TABLET.DR PO ×2 (02:27→08:45)
[2025-07-13 05:34] LABS: Hematocrit 30.1 % (42.0-54.0); Hemoglobin 9.6 g/dL (14.0-18.0); Immature Granulocytes Abs Auto 0.08 10^3/uL (0.00-0.03); Immature Granulocytes Pct Auto 0.9 % (0.0-0.5); Lymphocytes Absolute Auto 0.7 10^3/uL (1.2-3.8); Mean Corpuscular HGB Conc 31.9 g/dL (29.9-35.2); Mean Corpuscular Hemoglobin 29.4 pg (25.9-34.0); Mean Corpuscular Volume 92.0 fL (80.0-94.0); Platelet Count 163 10^3/uL (150-450); Red Blood Count 3.27 10^6/uL (4.70-6.10); White Blood Count 8.5 10^3/uL (4.0-11.0)
[2025-07-13 05:56] LABS: Alanine Aminotransferase 93 U/L (16-63); Albumin Globulin Ratio 0.8; Albumin Level 3.1 g/dL (3.4-5.0); Alkaline Phosphatase 197 U/L (46-116); Anion Gap 12.2; Aspartate Amino Transferase 67 U/L (15-37); Blood Urea Nitrogen 20.0 mg/dL (7.0-18.0); Calcium 9.3 mg/dL (8.5-10.1); Carbon Dioxide 28.8 mmol/L (21.0-32.0); Chloride 103 mmol/L (98-107); Cholesterol 129 mg/dL (<=200); Estimated GFR (African America 47 (>=60 mL/min/1.73m^2); Estimated GFR (Non-African Ame 39 (>=60 mL/min/1.73m^2); Globulin 3.8 g/dL; Glucose 100 mg/dL (74-106); HDL Cholesterol 45 mg/dL (40-60); Potassium 4.0 mmol/L (3.5-5.1); Sodium 140 mmol/L (136-145); Total Protein 6.9 g/dL (6.4-8.2); Triglycerides 119 mg/dL (<=150); VLDL CHOLESTEROL 23.8 mg/dL
--- NOTE | 2025-07-13 08:00 | ECG_ITS ---
The [facility] Test Date: 2025-07-13 Pat Name: KEL CASTILLO Department: Room: [facility] Gender: Male Hot Top Liner: : 1955 Requested By: 2802 Order Number: [id number] Reading MD: VIDHI ALCANTARA Measurements Intervals [place] Rate: 69 P: 36 NE: 160 QRS: -20 QRSD: 115 T: 80 QT: 430 QTc: 461 Interpretive Statements SINUS RHYTHM INCOMPLETE RIGHT BUNDLE BRANCH BLOCK [90+ ms QRS DURATION, TERMINAL R IN V1/V2, 40+ ms S IN I/aVL/V4/V5/V6] POSSIBLE LEFT VENTRICULAR HYPERTROPHY [VOLTAGE CRITERIA PLUS LAE OR QRS WIDENING] NONSPECIFIC ST & T-WAVE ABNORMALITY Compared to ECG 07/12/2025 22:18:26 Incomplete right bundle-branch block now present T-wave abnormality now present Intraventricular conduction delay no longer present ST (T wave) deviation no longer present Possible ischemia no longer present Electronically Signed On 07-13-2025 6:57:50 EST by VIDHI ALCANTARA
--- NOTE | 2025-07-13 09:40 | CM.NOTE ---
Rounds made with Dr. Tobar, discussed diagnosis and plan of care with pt. Pt inpatient status, no discharge today. Spoke with Ambar from pharmacy for medication reconciliation.
--- NOTE | 2025-07-13 11:38 | CT_ITS ---
The [address] [address] Patient Name: KEL CASTILLO MRN: [id number] date: 1955 Sex: M Assigned Patient Location: Current Patient Location: Accession/Order Number: [id number] Exam Date: 07/13/2025 11:34 Report Date: 07/13/2025 15:57 At the request of: KHURRAM ALDRIDGE MD Procedure: CT chest wo con CT chest wo con 07/13/2025 11:38 AM SIGN AND SYMPTOMS: Hemoptysis, Hx lung CA s/p lobectomy. ? Pneimonia TECHNIQUE: Multidetector CT axial slices of the chest were obtained without IV contrast. Multiplanar reformats were performed and viewed on a separate workstation and reviewed to further define anatomy and possible pathology. CT was performed with one or more of the following dose reduction techniques: Automated exposure control, adjustment of the mA and/or kV according to patient size, or use of iterative reconstruction technique. COMPARISON: 07/12/2025. FINDINGS: Lower neck: Thyroid gland within normal limits, no supraclavicle adenopathy. Vessels: Atherosclerotic changes are noted in the thoracic aorta, coronary arteries, and origins of the great vessels. Mediastinum and Pamela: Postsurgical and posttreatment changes are noted in the right hilum. There is a prominent lymph node along the right side of the mediastinum measuring up to 1.1 cm in short axis. Heart: Normal size. No pericardial effusion. Airways: Within normal limits Lungs: Patchy areas of groundglass attenuation are noted in the left upper and lower lobes may be infectious or inflammatory. Fibrotic changes are noted with groundglass attenuation in the right lower lobe with focal consolidation emanating from the right hilar region at the superior aspect of the right lower lobe. There is evidence of previous lobectomy on the right. Pleura: There is a small to moderate right-sided pleural effusion. Chest Wall: Within normal limits. Upper Abdomen: Atherosclerotic changes are noted in the abdominal aorta. Bones: Degenerative changes are noted in the thoracic spine. There is evidence of prior sternotomy. There is evidence of previous right-sided thoracotomy with a defect in the right third rib. CT/CT chest wo con IMPRESSION: Fibrotic changes are noted with groundglass attenuation in the right lower lobe with focal consolidation emanating from the right hilar region at the superior aspect of the right lower lobe. This may be treatment related. An underlying infectious process is not excluded. No previous CT studies are available for comparison. Additional subtle areas of groundglass attenuation is noted on the left. There is evidence of previous lobectomy on the right. There is a prominent lymph node along the right side of the mediastinum measuring up to 1.1 cm in short axis. This is nonspecific and may be reactive or metastatic in nature. There is a small to moderate right-sided pleural effusion. Impression dictated by: Obdulio Mar M.D. 07/13/2025 3:57 PM Dictation Location: [place] [address] Electronically authenticated by: [id number] Y Date: 07/13/2025 15:57
--- NOTE | 2025-07-13 13:50 | PM.HP ---
HPI H&P: HPI History of Present Illness Chief complaint: PNEUMONIA, CHF Narrative: Mr. Garcia is a 70-year-old gentleman with the known history of coronary artery disease, previous coronary artery bypass graft. Patient also is known to have history of lung cancer for which she had right upper lobectomy 20 years ago. He used to smoke but not any longer. Patient came in with shortness of breath, cough productive to bloody sputum. No chest pain. No abdominal pain. No nausea or vomiting. Patient felt weak. Opioid HPI Opioid Management Most Recent Pain and Opioid Data: Last Pain Scale 8 07/10/23, 15:44 Last Pain Assessment Today, 13:09 Last ORT Total Score 1 Today, 01:50 Last ORT Risk Category Low Risk Today, 01:50 Review of Systems ROS Status of ROS 10 or more systems reviewed and unremarkable except as noted in history and below [facility] Medical History PVD (peripheral vascular disease) ?I73.9 - Peripheral vascular disease, unspecified (ICD-10) HTN (hypertension) ?I10 - Essential (primary) hypertension (ICD-10) Surgical History (Updated 07/13/25 @ 02:11 by Radha Garces RN) History of lobectomy of lung ?Z90.2 - Acquired absence of lung [part of] (ICD-10) Status post femoral-popliteal bypass surgery ?Z95.828 - Presence of other vascular implants and grafts (ICD-10) Family History (Updated 07/13/25 @ 02:11 by Radha Garces RN) Sister Family history of colon cancer Family history of diabetes mellitus Brother Family history of heart disease Family history of myocardial infarction Mother Family history of diabetes mellitus Family history of hypertension Social History Highest level of school completed/degree received: GED or equivalent Little interest or pleasure in doing things: more than half the days Feeling down, depressed, or hopeless: nearly every day Meds Home Medications and Allergies Home Medications ?Medication ?Instructions ?Recorded ?Confirmed ?Type aspirin 81 mg tablet,delayed 81 mg PO QDAY 07/12/25 07/13/25 History release bupropion HCl 300 mg 24 hr tablet, 300 mg PO QDAY 07/12/25 07/13/25 History extended release buspirone 15 mg tablet 15 mg PO BID 07/12/25 07/13/25 History clopidogrel 75 mg tablet 75 mg PO QDAY 07/12/25 07/13/25 History famotidine 20 mg tablet 20 mg PO BID 07/12/25 07/13/25 History fenofibrate micronized 43 mg 43 mg PO QDAY 07/12/25 07/13/25 History capsule isosorbide mononitrate 60 mg 60 mg PO QDAY 07/12/25 07/13/25 History tablet,extended release 24 hr metoprolol tartrate 50 mg tablet 50 mg PO BID 07/12/25 07/13/25 History olanzapine 5 mg tablet 5 mg PO QPM 07/12/25 07/13/25 History rivaroxaban 2.5 mg tablet (Xarelto) 2.5 mg PO BID 07/12/25 07/13/25 History sertraline 100 mg tablet 100 mg PO QDAY 07/12/25 07/13/25 History sodium zirconium cyclosilicate 10 10 g PO . DIRECTED 07/12/25 07/13/25 History gram oral powder packet (Lokelma) trazodone 100 mg tablet 100 mg PO QAM 07/12/25 07/13/25 History ferrous sulfate 325 mg (65 mg 325 mg PO QDAY 07/13/25 07/13/25 History iron) tablet (FeroSul) furosemide 20 mg tablet 20 mg PO QAM 07/13/25 07/13/25 History Allergies Allergy/AdvReac Type Severity Reaction Status Date / Time No Known Drug Allergies Allergy Verified 07/10/23 15:24 Exam Narrative Exam Narrative: [pt is awake and alert. oriented to place, time and person HEENT: [place] conjunctiva and NL buccal mucosa Neck: Supple, no tenderness Endocrine: No Thyromegaly. Vascular: No JVD or carotid bruit. Lymphatic: No cervical lymphadenopathy. Chest: Rhonchi involving the right middle and lower lobe. Heart RRR, no extra sound or murmur. Abd: Soft, no tenderness, no rebound and no rigidity. Increase abd girth therefore clinically I could not exclude the possibility of intra abd mass or organomegaly. LE: No cyanosis or clubbing, no varices or edema. Neuro: A A O. Nl speech, comprehension and attention. Nl and symetrical motor and tone examination through out. []] Constitutional Vital Signs, click to edit/add: Last Vital Signs Temp 98.1 F 07/13/25 08:08 Pulse 72 07/13/25 12:05 Resp 18 07/13/25 11:56 BP 136/66 07/13/25 11:56 Pulse Ox 91 L 07/13/25 11:56 O2 Del Method Room Air 07/13/25 11:56 Results Labs Labs: Short CBC 07/12/25 07/13/25 Range/Units 22:30 05:25 WBC 9.1 8.5 (4.0-11.0) 10^3/uL Hgb 9.1 L 9.6 L (14.0-18.0) g/dL Hct 28.4 L 30.1 L (42.0-54.0) % Plt Count 156 163 (150-450) 10^3/uL BMP 07/12/25 07/13/25 22:30 05:25 Sodium 142 140 Potassium 4.2 4.0 Chloride 107 103 Carbon Dioxide 27.9 28.8 BUN 20.0 H 20.0 H Creatinine 1.58 H 1.74 H Glucose 96 100 Calcium 9.0 9.3 Liver Function 07/12/25 07/13/25 Range/Units 22:30 05:25 Total Bilirubin 0.9 0.9 (0.2-1.0) mg/dL AST 73 H 67 H (15-37) U/L ALT 95 H 93 H (16-63) U/L Alkaline Phosphatase 196 H 197 H (46-116) U/L Albumin 2.9 L 3.1 L (3.4-5.0) g/dL Urine 07/13/25 Range/Units 01:56 Urine Color Lt. yellow (YELLOW) Urine Clarity Clear (CLEAR) Urine pH 6.5 (5.0-9.0) Ur Specific [place] <=1.005 A (1.005-1.025) Urine Protein Negative (NEG/TRACE) mg/dL Urine Glucose (UA) Negative (NEGATIVE) mg/dL Assessment and Plan Assessment and Plan (1) Pneumonia: Plan Pneumonia, quite extensive involving the right middle and lower lung. Surprisingly, his white count is normal and the patient is afebrile I requested to check influenza A and B, SARS COVID and RSV. Requested lower respiratory culture. I started patient on Zosyn and doxycycline suspecting that could be an element of obstruction given his previous lobectomy. For sure I would recommend repeat imaging of the chest in 2 months to ensure complete resolution otherwise patient may need to have additional workup and/or investigation rule out underlying malignancy given his history of lung cancer. CKD stage III near baseline Continue to keep patient in euvolemic state. Elevated BNP, underlying history of CAD and previous coronary artery bypass graft No active chest pain. Troponin is negative. No clinical suspicion of acute coronary syndrome or acute plaque rupture Patient may have progressive recurrent CAD that may need to have further investigation. Elevated BNP but no overwhelming evidence of fluid overload. No JVD. No lower extremities edema. Continue cardiovascular medications. Continue to keep him in a euvolemic state. Elevated LFTs Unknown etiology. No tenderness in the right upper quadrant. Normal bilirubin. Patient has had chronic elevation of liver transaminases dated back all the way to 2022. Not sure if this was investigated in the past over the last 2 years. Broad differential diagnosis including but not limited to viral, autoimmune, infiltrative and/or neoplastic liver disease. This may need to be investigated further. Could be investigated further in the outpatient setting by PCP and/or in collaboration with the GI. Anemia, no evidence of acute blood loss. Patient will likely require to have anemia workup to be done in the outpatient setting to be handled by PCP in collaboration with other needed outpatient providers. This may include but not limited to EGD, colonoscopy, referral to see hematology and other needed age-appropriate cancer screening. Chronic, subacute medical conditions not listed above, abnormal labs and imaging, incidental findings seen on labs and or imaging. These would need to be addressed. Could be addressed later on or in the outpatient setting by PCP collaboration with other needed outpatient providers when time and condition are appropriate. Urinary Catheter Management Urinary Catheter Management 2-way Urethral: Cath placed during this visit: yes Urethral indwelling: No Insertion date: 07/13/25 Insertion time: 00:15
--- NOTE | 2025-07-13 13:57 | SWNOTE1 ---
INDIGO met with pt and daughter in room. Pt lives at home by himself. He voiced his daughter is very helpful. She checks on him and assists with anything he needs. Pt does have a walker and cane at home if needed. Pt does not drive, but again his daughter is very helpful. Pt's daughter did let SW know that [facility] does come in, just a nurse and today was supposed to be her last visit. SW to send them updates. Pt and daughter deny any any needs at discharge at this time. SW was consulted for Advanced Directives and mental health. INDIGO asked pt if he has completed Health Care Power of Senior Quality Engineer? The daughter stated the home health nurse was more talking about DNR and his wishes. She stated they have completed power of broadband technician. INDIGO advised that SW will let CM know and the physician can address code status in the morning. INDIGO asked pt about his overall mental health? SW asked if he been feeling depressed at all? Pt voiced he does here and there, but overall he feels alright at this time. Pt's daughter stated he does take medication for anxiety and it is more his anxiety. Pt in agreement. He voiced he is really feeling it right now from laying in bed all day. Daughter was not sure if there was anything else they could do. SW to let the pt's nurse know. INDIGO did ask pt if he had any thoughts or harming himself or anyone else? He stated no absolutely not. At this time no other concerns or needs. INDIGO faxed updates to [facility]. Updates included face sheet, ED note, H&P, and labs. INDIGO let CM know about code status discussion request.
[2025-07-13 14:19] LABS: SARS-CoV-2 Ag NEGATIVE (NEGATIVE)
--- NOTE | 2025-07-13 14:26 | SWNOTE1 ---
Pt is current with [facility], nurse only, and had one visit left and they were supposed to come today.
[2025-07-13] MEDS: PIPERACILLIN SODIUM/TAZOBACTAM 3.375 GM in 0.9 % SODIUM CHLORIDE 50 ML IV ×2 (14:31→23:49)
[2025-07-13] MEDS: 0.9 % SODIUM CHLORIDE 250 ML 10 ML IV (14:32)
[2025-07-13] MEDS: ISOSORBIDE MONONITRATE 60 MG TAB.ER.24H PO (14:32)
[2025-07-13] MEDS: CLOPIDOGREL BISULFATE 75 MG TABLET PO (14:32)
[2025-07-13] MEDS: BUSPIRONE HCL 15 MG TABLET PO ×2 (14:32→21:57)
[2025-07-13] MEDS: SERTRALINE HCL 100 MG TABLET PO (14:32)
[2025-07-13] MEDS: DEXAMETHASONE SOD PHOS 10 MG/ML VIAL IV (14:32)
[2025-07-13] MEDS: FAMOTIDINE 20 MG TABLET PO ×2 (14:32→21:57)
[2025-07-13] MEDS: BUPROPION HCL 150 MG XL TABLET 24H 300 MG PO (14:38)
--- NOTE | 2025-07-13 14:41 | CM.NOTE ---
Important Message From Medicare discussed with pt and daughter, daughter verbalizes understanding and signs paper. Original given to pt and copy placed in pt's chart.
[2025-07-13] MEDS: ACETAMINOPHEN 325 MG TABLET 650 MG PO (16:11)
[2025-07-13] MEDS: PROMETHAZINE HCL 12.5 MG in 0.9 % SODIUM CHLORIDE 50 ML 204 MG IV (16:43)
[2025-07-13] MEDS: DOXYCYCLINE HYCLATE 100 MG in 0.9 % SODIUM CHLORIDE 100 ML IV (20:47)
[2025-07-13] MEDS: METOPROLOL TARTRATE 50 MG TABLET PO (21:56)
[2025-07-13] MEDS: TRAZODONE HCL 50 MG TABLET PO (21:56)
[2025-07-14] VITALS (21 sets, daily range): BP systolic 107–135; BP diastolic 64–72; PULSE 54–66; TEMP 36.4–36.6; O2SAT 91–98
[2025-07-14 05:36] LABS: Hematocrit 28.5 % (42.0-54.0); Hemoglobin 9.1 g/dL (14.0-18.0); Mean Corpuscular HGB Conc 31.9 g/dL (29.9-35.2); Mean Corpuscular Hemoglobin 29.3 pg (25.9-34.0); Mean Corpuscular Volume 91.6 fL (80.0-94.0); Platelet Count 178 10^3/uL (150-450); Red Blood Count 3.11 10^6/uL (4.70-6.10); White Blood Count 7.5 10^3/uL (4.0-11.0)
[2025-07-14 05:58] LABS: Alanine Aminotransferase 72 U/L (16-63); Albumin Globulin Ratio 0.7; Albumin Level 2.7 g/dL (3.4-5.0); Alkaline Phosphatase 191 U/L (46-116); Anion Gap 11.5; Aspartate Amino Transferase 50 U/L (15-37); Blood Urea Nitrogen 28.0 mg/dL (7.0-18.0); Calcium 9.3 mg/dL (8.5-10.1); Carbon Dioxide 28.6 mmol/L (21.0-32.0); Chloride 106 mmol/L (98-107); Estimated GFR (African America 43 (>=60 mL/min/1.73m^2); Estimated GFR (Non-African Ame 35 (>=60 mL/min/1.73m^2); Globulin 3.9 g/dL; Glucose 124 mg/dL (74-106); Potassium 4.1 mmol/L (3.5-5.1); Sodium 142 mmol/L (136-145); Total Protein 6.6 g/dL (6.4-8.2)
[2025-07-14] MEDS: PIPERACILLIN SODIUM/TAZOBACTAM 3.375 GM in 0.9 % SODIUM CHLORIDE 50 ML IV ×3 (06:26→23:25)
[2025-07-14] MEDS: ASPIRIN 81 MG TABLET.DR PO (08:35)
[2025-07-14] MEDS: FAMOTIDINE 20 MG TABLET PO ×2 (08:35→21:19)
[2025-07-14] MEDS: CLOPIDOGREL BISULFATE 75 MG TABLET PO (08:35)
[2025-07-14] MEDS: BUPROPION HCL 150 MG XL TABLET 24H 300 MG PO (08:35)
[2025-07-14] MEDS: BUSPIRONE HCL 15 MG TABLET PO ×2 (08:35→21:19)
[2025-07-14] MEDS: METOPROLOL TARTRATE 50 MG TABLET PO ×2 (08:35→21:19)
[2025-07-14] MEDS: SERTRALINE HCL 100 MG TABLET PO (08:35)
[2025-07-14] MEDS: ISOSORBIDE MONONITRATE 60 MG TAB.ER.24H PO (08:36)
[2025-07-14] MEDS: FUROSEMIDE 20 MG TABLET PO (08:36)
--- NOTE | 2025-07-14 08:40 | CM.NOTE ---
Rounds made with Dr. Tobar, discussed plan of care with pt. Pt will have VQ scan today. PT and OT will evaluate pt for discharge planning. No discharge today.
--- NOTE | 2025-07-14 09:24 | P.PN_ITS ---
Progress Note: Subjective Subjective Interval history: Patient is feeling much better. Less cough and congestion. No further hemoptysis. Exam Narrative Exam Narrative: [pt is awake and alert. oriented to place, time and person HEENT: [place] conjunctiva and NL buccal mucosa Neck: Supple, no tenderness Endocrine: No Thyromegaly. Vascular: No JVD or carotid bruit. Lymphatic: No cervical lymphadenopathy. Chest: Rhonchi involving the right middle and lower lobe. Heart RRR, no extra sound or murmur. Abd: Soft, no tenderness, no rebound and no rigidity. Increase abd girth therefore clinically I could not exclude the possibility of intra abd mass or organomegaly. LE: No cyanosis or clubbing, no varices or edema. I examined the right groin. Patient has scar from his recent leg bypass completed a month ago. No fluctuation. No hematoma just fibrotic tissue, probable lymph node or small mass. Neuro: A A O. Nl speech, comprehension and attention. Nl and symetrical motor and tone examination through out. []] Constitutional Vital Signs, click to edit/add: Last Vital Signs Temp 97.9 F 07/14/25 07:49 Pulse 62 07/14/25 07:54 Resp 18 07/14/25 03:51 BP 135/72 07/14/25 07:49 Pulse Ox 94 L 07/14/25 07:49 O2 Del Method Nasal Cannula 07/14/25 07:49 O2 Flow Rate 2 07/14/25 07:49 Progress Note: Objective Labs Labs: Short CBC 07/14/25 Range/Units 05:06 WBC 7.5 (4.0-11.0) 10^3/uL Hgb 9.1 L (14.0-18.0) g/dL Hct 28.5 L (42.0-54.0) % Plt Count 178 (150-450) 10^3/uL BMP 07/14/25 05:06 Sodium 142 Potassium 4.1 Chloride 106 Carbon Dioxide 28.6 BUN 28.0 H Creatinine 1.89 H Glucose 124 H Calcium 9.3 Liver Function 07/14/25 Range/Units 05:06 Total Bilirubin 0.8 (0.2-1.0) mg/dL Direct Bilirubin 0.4 H (0.0-0.2) mg/dL AST 50 H (15-37) U/L ALT 72 H (16-63) U/L Alkaline Phosphatase 191 H (46-116) U/L Albumin 2.7 L (3.4-5.0) g/dL Progress Note: A&P Assessment and Plan (1) Pneumonia: Plan Pneumonia, quite extensive changes involving the right middle and lower lung. Could be mixed lung scarring from previous lung radiation, superimposed pneumonia. Could not exclude the possibility of underlying malignancy. Surprisingly, his white count is normal and the patient is afebrile I requested to check influenza A and B, SARS COVID and RSV. All negative Requested lower respiratory culture. Pending I started patient on Zosyn and doxycycline suspecting that could be an element of obstruction given his previous lobectomy. For sure I would recommend repeat imaging of the chest in 2 months to ensure complete resolution otherwise patient may need to have additional workup and/or investigation rule out underlying malignancy given his history of lung cancer. His D-dimer slightly positive. My suspicion of PE is low but not 0. I requested venous study which came back negative for DVT. Unfortunately I would recommend against CT of the chest due to his CKD. Requested V scan to be done this morning. VQ scan may be suboptimal due to his previous lobectomy and abnormality seen on CT chest. Right groin fibrotic tissue versus mass versus lymph node clinically and seen on ultrasound This will need follow-up. I would recommend surveillance and if the patient continues to have fibrotic tissue or mass or lymph node then I would recommend biopsy. To be done electively in the outpatient setting. CKD stage III near baseline Continue to keep patient in euvolemic state. Elevated BNP, underlying history of CAD and previous coronary artery bypass graft No active chest pain. Troponin is negative. No clinical suspicion of acute coronary syndrome or acute plaque rupture Patient may have progressive recurrent CAD that may need to have further investigation. Elevated BNP but no overwhelming evidence of fluid overload. No JVD. No lower extremities edema. Continue cardiovascular medications. Continue to keep him in a euvolemic state. Peripheral vascular disease. Recent right leg bypass. No clinical evidence of acute or arterial compromise. Continue Plavix and Xarelto 2.5 mg twice daily. Elevated LFTs Unknown etiology. No tenderness in the right upper quadrant. Normal bilirubin. Patient has had chronic elevation of liver transaminases dated back all the way to 2022. Not sure if this was investigated in the past over the last 2 years. Broad differential diagnosis including but not limited to viral, autoimmune, infiltrative and/or neoplastic liver disease. This also could be related to medication side effect. This may need to be investigated further. Could be investigated further in the outpatient setting by PCP and/or in collaboration with the GI. Anemia, no evidence of acute blood loss. Patient will likely require to have anemia workup to be done in the outpatient setting to be handled by PCP in collaboration with other needed outpatient providers. This may include but not limited to EGD, colonoscopy, referral to see hematology and other needed age-appropriate cancer screening. Chronic, subacute medical conditions not listed above, abnormal labs and imaging, incidental findings seen on labs and or imaging. These would need to be addressed. Could be addressed later on or in the outpatient setting by PCP collaboration with other needed outpatient providers when time and condition are appropriate. Urinary Catheter Management Urinary Catheter Management 2-way Urethral: Cath placed during this visit: yes Urethral indwelling: No Insertion date: 07/13/25 Insertion time: 00:15
[2025-07-14] MEDS: DEXAMETHASONE SOD PHOS 4 MG/ML VIAL IV ×2 (10:36→21:20)
[2025-07-14] MEDS: DOXYCYCLINE HYCLATE 100 MG in 0.9 % SODIUM CHLORIDE 100 ML IV ×2 (11:01→21:14)
--- NOTE | 2025-07-14 12:48 | SWNOTE1 ---
INDIGO faxed physician note and PT note to [facility]. INDIGO let [facility] know that we are adding PT to pt's home health order at discharge.
--- NOTE | 2025-07-14 13:00 | NM_ITS ---
[place] [id number] Patient Name: KEL CASTILLO MRN: [id number] date: 1955 Sex: M Assigned Patient Location: MS Current Patient Location: MS Accession/Order Number: [id number] Exam Date: 07/14/2025 12:45 Report Date: 07/14/2025 14:09 At the request of: KHURRAM ALDRIDGE MD Procedure: NM pul vent and perfuse VENTILATION/PERFUSION LUNG SCAN CLINICAL HISTORY: Dyspnea r/p PE COMPARISON: None Following the inhalation of 25.2 mCi of Tc 99m labeled DTPA, ventilatory views of the lungs were obtained in multiple projections. Following the intravenous injection of 7.5 mCi Technetium 99m labeled MAA, perfusion images of the lungs were obtained in multiple projections. Homogeneous distribution on the ventilation/perfusion imaging There are no mismatched defects. NM/NM pul vent and perfuse IMPRESSION: NORMAL STUDY. Impression dictated by: German Benoit Jr., DBrenOBren 07/14/2025 2:09 PM Dictation Location: [place] [address] Electronically authenticated by: [id number] Y Date: 07/14/2025 14:09
--- NOTE | 2025-07-14 13:29 | XR_ITS ---
The [address] [address] Patient Name: KEL CASTILLO MRN: [id number] date: 1955 Sex: M Assigned Patient Location: MS Current Patient Location: LAB Accession/Order Number: [id number] Exam Date: 07/14/2025 13:32 Report Date: 07/14/2025 16:55 At the request of: KHURRAM ALDRIDGE MD Procedure: XR chest 2V PA AND LATERAL CHEST: CLINICAL HISTORY: SOB, with NM study COMPARISON: 07/13/2025 FINDINGS: Sternotomy wires. Enlarged cardiomediastinal silhouette. Right basilar opacity likely effusion. There are coarsened interstitial markings identified both lungs greatest the right. Right apical opacity with adjacent postsurgical clips possibly related to prior surgery. Left lung is grossly clear. XR/XR chest 2V IMPRESSION: Postsurgical and presumed postradiation changes right lung. Right basilar effusion. Coarsened interstitial markings greatest the right noted possibly posttreatment related versus interstitial edema or interstitial pneumonia. Impression dictated by: Gt Cabrera M.D. 07/14/2025 4:55 PM Dictation Location: [place] [address] Electronically authenticated by: [id number] Y Date: 07/14/2025 16:55
[2025-07-14] MEDS: TRAZODONE HCL 50 MG TABLET PO (21:19)
[2025-07-15] VITALS (23 sets, daily range): BP systolic 108–136; BP diastolic 52–75; PULSE 56–67; TEMP 36.4–36.8; O2SAT 93–96
[2025-07-15] MEDS: DOXYCYCLINE HYCLATE 100 MG in 0.9 % SODIUM CHLORIDE 100 ML IV (07:45)
[2025-07-15] MEDS: CLOPIDOGREL BISULFATE 75 MG TABLET PO (08:41)
[2025-07-15] MEDS: BUPROPION HCL 150 MG XL TABLET 24H 300 MG PO (08:41)
[2025-07-15] MEDS: BUSPIRONE HCL 15 MG TABLET PO ×2 (08:41→21:47)
[2025-07-15] MEDS: SERTRALINE HCL 100 MG TABLET PO (08:41)
[2025-07-15] MEDS: FAMOTIDINE 20 MG TABLET PO ×2 (08:41→21:47)
[2025-07-15] MEDS: FUROSEMIDE 20 MG TABLET PO ×2 (08:41→21:47)
[2025-07-15] MEDS: 0.9 % SODIUM CHLORIDE 250 ML 10 ML IV (08:41)
[2025-07-15] MEDS: ASPIRIN 81 MG TABLET.DR PO (08:41)
[2025-07-15] MEDS: ISOSORBIDE MONONITRATE 60 MG TAB.ER.24H PO (08:41)
[2025-07-15] MEDS: PIPERACILLIN SODIUM/TAZOBACTAM 3.375 GM in 0.9 % SODIUM CHLORIDE 50 ML IV ×2 (08:42→17:26)
--- NOTE | 2025-07-15 08:57 | ECG_ITS ---
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1955 Requested By: [id number] Order Number: [id number] Reading MD: VIDHI ALCANTARA Measurements Intervals [place] Rate: 58 P: 43 CT: 154 QRS: 5 QRSD: 128 T: 180 QT: 458 QTc: 451 Interpretive Statements SINUS BRADYCARDIA POSSIBLE RIGHT VENTRICULAR CONDUCTION DELAY [RSR (QR) IN V1/V2] SEPTAL MYOCARDIAL INFARCTION [40+ ms Q WAVE IN V1/V2], PROBABLY OLD Compared to ECG 07/13/2025 05:29:11 Myocardial infarct finding now present Sinus rhythm no longer present Incomplete right bundle-branch block no longer present T-wave abnormality no longer present Electronically Signed On 07-15-2025 11:21:08 EST by VIDHI ALCANTARA
--- NOTE | 2025-07-15 09:10 | CM.NOTE ---
Rounds made with Dr. Tobar, discussed plan of care with pt and daughter. CM updated Dr. Tobar regarding beta kelsy being held d/t low HR. Order for EKG per Dr. Tobar, entered per CM. Updated RN
--- NOTE | 2025-07-15 10:53 | PM.PN ---
Progress Note: Subjective Subjective Interval history: Patient is feeling much better. Less cough and congestion. No further hemoptysis. Exam Narrative Exam Narrative: [pt is awake and alert. oriented to place, time and person HEENT: [place] conjunctiva and NL buccal mucosa Neck: Supple, no tenderness Endocrine: No Thyromegaly. Vascular: No JVD or carotid bruit. Lymphatic: No cervical lymphadenopathy. Chest: Noticeable resolution of the rhonchi involving the right middle and lower lobe. Heart RRR, no extra sound or murmur. Abd: Soft, no tenderness, no rebound and no rigidity. Increase abd girth therefore clinically I could not exclude the possibility of intra abd mass or organomegaly. LE: No cyanosis or clubbing, no varices or edema. I examined the right groin. Patient has scar from his recent leg bypass completed a month ago. No fluctuation. No hematoma just fibrotic tissue, probable lymph node or small mass. Neuro: A A O. Nl speech, comprehension and attention. Nl and symetrical motor and tone examination through out. []] Constitutional Vital Signs, click to edit/add: Last Vital Signs Temp 97.7 F 07/15/25 08:39 Pulse 62 07/15/25 09:54 Resp 18 07/15/25 08:39 BP 136/64 07/15/25 08:39 Pulse Ox 93 L 07/15/25 08:39 O2 Del Method Room Air 07/15/25 08:39 O2 Flow Rate 1 07/15/25 00:00 Progress Note: A&P Assessment and Plan (1) Pneumonia: Plan Pneumonia, quite extensive changes involving the right middle and lower lung. Could be mixed lung scarring from previous lung radiation, superimposed pneumonia. Could not exclude the possibility of underlying malignancy recurrence. Surprisingly, his white count is normal and the patient is afebrile I requested to check influenza A and B, SARS COVID and RSV. All negative Requested lower respiratory culture. Pending I started patient on Zosyn and doxycycline suspecting that could be an element of obstruction given his previous lobectomy. For sure I would recommend repeat imaging of the chest in 2 months or PET scan to ensure complete resolution otherwise patient may need to have additional workup and/or investigation rule out underlying malignancy given his history of lung cancer. His D-dimer slightly positive. My suspicion of PE is low but not 0. I requested venous study which came back negative for DVT. Unfortunately I would recommend against CT of the chest due to his CKD. Requested V scan to be done this morning. VQ scan came back negative for any perfusion defect. Right groin fibrotic tissue versus mass versus lymph node clinically and seen on ultrasound This will need follow-up. I would recommend surveillance and if the patient continues to have fibrotic tissue or mass or lymph node then I would recommend biopsy. To be done electively in the outpatient setting. CKD stage III near baseline Continue to keep patient in euvolemic state. Elevated BNP, underlying history of CAD and previous coronary artery bypass graft No active chest pain. Troponin is negative. No clinical suspicion of acute coronary syndrome or acute plaque rupture Patient may have progressive recurrent CAD that may need to have further investigation. Elevated BNP but no overwhelming evidence of fluid overload. No JVD. No lower extremities edema. Echocardiogram was completed in February 2025. Normal EF. Positive for diastolic dysfunction and dilated left atrium. Moderate degree of pulmonary hypertension. Moderate mitral regurgitation. Continue cardiovascular medications. Continue to keep him in a euvolemic state. Peripheral vascular disease. Recent right leg bypass. No clinical evidence of acute or arterial compromise. Continue Plavix and Xarelto 2.5 mg twice daily. Elevated LFTs Unknown etiology. No tenderness in the right upper quadrant. Normal bilirubin. Patient has had chronic elevation of liver transaminases dated back all the way to 2022. Not sure if this was investigated in the past over the last 2 years. Broad differential diagnosis including but not limited to viral, autoimmune, infiltrative and/or neoplastic liver disease. This also could be related to medication side effect. (Viral hepatitis panel is negative ) this may need to be investigated further. Could be investigated further in the outpatient setting by PCP and/or in collaboration with the GI. Anemia, no evidence of acute blood loss. Patient will likely require to have anemia workup to be done in the outpatient setting to be handled by PCP in collaboration with other needed outpatient providers. This may include but not limited to EGD, colonoscopy, referral to see hematology and other needed age-appropriate cancer screening. Microscopic hematuria. 10-20 RBC. Only 0-2 WBC. Could be related to the fact that patient is on Plavix and Xarelto. I could not exclude the possibility of other causes such as urological malignancy. Patient may need to have urological investigation which may include but not limited to additional urological imaging, cystoscopy and others. This could be handled electively by PCP in collaboration with urology. Chronic, subacute medical conditions not listed above, abnormal labs and imaging, incidental findings seen on labs and or imaging. These would need to be addressed. Could be addressed later on or in the outpatient setting by PCP collaboration with other needed outpatient providers when time and condition are appropriate. I discussed his case with his daughter at the bedside. We discussed the aforementioned assessment and plan and my recommendation for patient to proceed with additional outpatient diagnostic and therapeutic intervention as listed. Patient and his daughter are very professional people. They are very respectful towards staff and myself. Very good people Urinary Catheter Management Urinary Catheter Management 2-way Urethral: Cath placed during this visit: yes Urethral indwelling: No Insertion date: 07/13/25 Insertion time: 00:15
[2025-07-15] MEDS: DEXAMETHASONE SOD PHOS 10 MG/ML VIAL IV (11:42)
[2025-07-15] MEDS: DOXYCYCLINE MONOHYDRATE 100 MG CAPSULE PO (21:47)
[2025-07-15] MEDS: TRAZODONE HCL 50 MG TABLET PO (21:47)
[2025-07-15] MEDS: METOPROLOL TARTRATE 50 MG TABLET 25 MG PO (21:51)
[2025-07-16] VITALS (10 sets, daily range): BP systolic 117–134; BP diastolic 60–73; PULSE 55–70; TEMP 36.4–36.6; O2SAT 60–96
[2025-07-16] MEDS: PIPERACILLIN SODIUM/TAZOBACTAM 3.375 GM in 0.9 % SODIUM CHLORIDE 50 ML IV ×2 (00:24→08:50)
--- NOTE | 2025-07-16 08:10 | CM.NOTE ---
Rounds made with Dr. Tobar, pt will discharge to home today. Pt will discharge with [facility]. 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 Dr. Tobar discussed with pt about need for repeat CT scan in 2 months. Pt verbalizes understanding.
[2025-07-16] MEDS: DOXYCYCLINE MONOHYDRATE 100 MG CAPSULE PO (08:49)
[2025-07-16] MEDS: SERTRALINE HCL 100 MG TABLET PO (08:49)
[2025-07-16] MEDS: BUPROPION HCL 150 MG XL TABLET 24H 300 MG PO (08:49)
[2025-07-16] MEDS: ISOSORBIDE MONONITRATE 60 MG TAB.ER.24H PO (08:50)
[2025-07-16] MEDS: BUSPIRONE HCL 15 MG TABLET PO (08:50)
[2025-07-16] MEDS: ASPIRIN 81 MG TABLET.DR PO (08:50)
[2025-07-16] MEDS: METOPROLOL TARTRATE 50 MG TABLET 25 MG PO (08:50)
[2025-07-16] MEDS: FAMOTIDINE 20 MG TABLET PO (08:50)
[2025-07-16] MEDS: CLOPIDOGREL BISULFATE 75 MG TABLET PO (08:50)
[2025-07-16] MEDS: FUROSEMIDE 20 MG TABLET PO (08:50)
--- NOTE | 2025-07-16 09:00 | CM.NOTE ---
2nd Important Message from Medicare discussed with pt, pt denies questions or concerns.
--- NOTE | 2025-07-16 09:14 | P.DS_ITS ---
DS: Providers Provider Date of admission: 07/13/25 00:46 Primary care physician: Susan Watson NP Consults: 07/13/25 Consult to Instructional Technologist Routine Reason for consult:: Mental Health Advanced Directives 07/14/25 Occupational Therapy Eval and Treat Routine Reason for consultation: weakness Physical Therapy Eval and Treat Routine Reason for consultation: weakness DS: Diagnosis Discharge Diagnosis (1) Pneumonia: Plan As listed above, below and others that are not listed DS: Summary Hospital Course Hospital Course: Mr. Garcia is a 70-year-old gentleman who came in with shortness of breath and was found to have the following: Pneumonia, quite extensive radiological changes involving the right middle and lower lung. Could be mixed lung scarring from previous lung radiation, superimposed pneumonia. Could not exclude the possibility of underlying malignancy recurrence. CAT scan also showed a pleural effusion as well as lymphadenopathy. Surprisingly, his white count is normal and the patient is afebrile I requested to check influenza A and B, SARS COVID and RSV. All negative Requested lower respiratory culture. Pending I started patient on Zosyn and doxycycline suspecting that could be an element of obstruction given his previous lobectomy. For sure I would recommend repeat imaging of the chest in 2 months or PET scan to ensure complete resolution otherwise patient may need to have additional workup and/or investigation rule out underlying malignancy given his history of lung cancer. His D-dimer slightly positive. My suspicion of PE is low but not 0. I requested venous study which came back negative for DVT. Unfortunately I would recommend against CT of the chest due to his CKD. Requested V scan to be done this morning. VQ scan came back negative for any perfusion defect. Patient is feeling much better. Resolution of his acute respiratory symptoms. Saturation is 94% on room air We will arrange for patient to follow-up with pulmonary team regarding his complicated pulmonary issues in the setting of abnormal radiological finding, pleural effusion and lymphadenopathy. Once again the patient would likely require to have a PET scan and/or repeat CAT scan in 2 months. Pattern Maker will decide if the patient would need thoracentesis for diagnostic purpose and/or referral to see oncology Right groin fibrotic tissue versus mass versus lymph node clinically and seen on ultrasound On my exam, the patient has firmness in the right groin just underneath the recent right groin vascular incision. Could be scar tissue versus underlying mass or lymph node. No fluctuation. No evidence of hematoma. This will need follow-up. I would recommend surveillance and if the patient continues to have fibrotic tissue or mass or lymph node then I would recommend biopsy. To be done electively in the outpatient setting. CKD stage III near baseline Continue to keep patient in euvolemic state. Patient would need to follow-up with nephrology. We will arrange that for him. Elevated BNP, underlying history of CAD and previous coronary artery bypass graft No active chest pain. Troponin is negative. No clinical suspicion of acute coronary syndrome or acute plaque rupture Patient may have progressive recurrent CAD that may need to have further investigation. Elevated BNP but no overwhelming evidence of fluid overload. No JVD. No lower extremities edema. Echocardiogram was completed in February 2025. Normal EF. Positive for diastolic dysfunction and dilated left atrium. Moderate degree of pulmonary hypertension. Moderate mitral regurgitation. Continue cardiovascular medications. Continue to keep him in a euvolemic state. Patient is to follow-up with his superintendent logging electively to be arranged by his PCP. Borderline bradycardia. Heart rate is dipping down to the mid 50s His metoprolol dose had been cut down from 50 mg twice a day down to 25 mg twice a day. Peripheral vascular disease. Recent right leg bypass. No clinical evidence of acute or arterial compromise. Continue Plavix and Xarelto 2.5 mg twice daily. Elevated LFTs Unknown etiology. No tenderness in the right upper quadrant. Normal bilirubin. Patient has had chronic elevation of liver transaminases dated back all the way to 2022. Not sure if this was investigated in the past over the last 2 years. Broad differential diagnosis including but not limited to viral, autoimmune, infiltrative and/or neoplastic liver disease. This also could be related to medication side effect. (Viral hepatitis panel is negative ) this may need to be investigated further. Could be investigated further in the outpatient setting by PCP and/or in collaboration with the GI. Anemia, no evidence of acute blood loss. Patient will likely require to have anemia workup to be done in the outpatient setting to be handled by PCP in collaboration with other needed outpatient providers. This may include but not limited to EGD, colonoscopy, referral to see hematology and other needed age-appropriate cancer screening. Microscopic hematuria. 10-20 RBC. Only 0-2 WBC. Could be related to the fact that patient is on Plavix and Xarelto. I could not exclude the possibility of other causes such as urological malignancy. Patient may need to have urological investigation which may include but not limited to additional urological imaging, cystoscopy and others. This could be handled electively by PCP in collaboration with urology. For now, I would recommend that the PCP order repeat UA in 2 to 3 weeks and if patient continues to have microscopic immaturity I would recommend referral to see urology. Chronic, subacute medical conditions not listed above, abnormal labs and imaging, incidental findings seen on labs and or imaging. These would need to be addressed. Could be addressed later on or in the outpatient setting by PCP collaboration with other needed outpatient providers when time and condition are appropriate. I discussed his case with his daughter at the bedside on 06/15.. We discussed the aforementioned assessment and plan and my recommendation for patient to proceed with extensive additional outpatient diagnostic and therapeutic intervention as listed. Patient and his daughter are very professional people. They are very respectful towards staff and myself. Very good people Patient has multiple complex medical issues as listed above and others that are not listed. All appear to be stable. I do not have any clear or strong clinical justification to extend inpatient hospitalization. Patient however will require close and frequent monitoring as well as additional work-up, investigation and therapeutic intervention that could take place from this point on post discharge. That is to prevent relapse, decompensation, rehospitalization and other medical implications. Discharge medications as listed are not final or set in stone. Primary care doctor and other out patient providers will need to titrate and adjust medications as soon as the first post discharge visit based on clinical progression, vitals signs, volume status and other related organs function. I instructed patient to ask her primary care doctor to obtain [facility] [place] record entirely to address abnormalities seen on labs and imaging that I have and have not addressed during this hospitalization, follow-up on pending blood work, imaging and pathology is if available and to follow-up on needed medical care in the outpatient setting. Time Spent with Patient Time attestation: Total time spent providing and/or coordinating discharge services: Exam Narrative Exam Narrative: [pt is awake and alert. oriented to place, time and person no distress. Patient is on room air. No cough or tachypnea. HEENT: [place] conjunctiva and NL buccal mucosa Neck: Supple, no tenderness Endocrine: No Thyromegaly. Vascular: No JVD or carotid bruit. Lymphatic: No cervical lymphadenopathy. Chest: Noticeable resolution of the rhonchi involving the right middle and lower lobe. Heart RRR, no extra sound or murmur. Abd: Soft, no tenderness, no rebound and no rigidity. Increase abd girth therefore clinically I could not exclude the possibility of intra abd mass or organomegaly. LE: No cyanosis or clubbing, no varices or edema. I examined the right groin. Patient has scar from his recent leg bypass completed a month ago. No fluctuation. No hematoma just fibrotic tissue, probable lymph node or small mass. Neuro: A A O. Nl speech, comprehension and attention. Nl and symetrical motor and tone examination through out. []] Constitutional Vital Signs, click to edit/add: Last Vital Signs Temp 97.9 F 07/16/25 08:48 Pulse 63 07/16/25 08:48 Resp 18 07/16/25 08:48 BP 134/73 07/16/25 08:48 Pulse Ox 94 L 07/16/25 09:10 O2 Del Method Room Air 07/16/25 09:10 O2 Flow Rate 1 07/15/25 00:00 DS: Data Data Completed and Pending Labs on day of discharge: Preliminary micro results at discharge 07/13/25 14:35 Lower Respiratory Culture - Preliminary Sputum - Expectorated Sputum 07/12/25 23:10 Blood Culture Result 2 - Preliminary Blood - Left Forearm NO GROWTH AT 36-48 HOURS. FINAL TO FOLLOW. 07/12/25 23:00 Blood Culture Result 1 - Preliminary Blood - Right Hand NO GROWTH AT 36-48 HOURS. FINAL TO FOLLOW. Discharge Plan Discharge Disposition: Home Health Service Discharge Medications: New doxycycline monohydrate 100 mg Capsule 100 mg PO BID Qty: 6 0RF prednisone 10 mg tablet 10 mg PO BID Qty: 10 0RF amoxicillin-pot clavulanate 500-125 mg tablet 1 tab PO BID Qty: 18 0RF Continued sertraline 100 mg tablet 100 mg PO QDAY olanzapine 5 mg tablet 5 mg PO QPM isosorbide mononitrate 60 mg tablet extended release 24 hr 60 mg PO QDAY rivaroxaban [Xarelto] 2.5 mg tablet 2.5 mg PO BID clopidogrel 75 mg tablet 75 mg PO QDAY aspirin 81 mg tablet,delayed release (DR/EC) 81 mg PO QDAY buspirone 15 mg tablet 15 mg PO BID bupropion HCl 300 mg tablet extended release 24 hr 300 mg PO QDAY fenofibrate micronized 43 mg capsule 43 mg PO QDAY ferrous sulfate [FeroSul] 325 mg (65 mg iron) tablet 325 mg PO QDAY furosemide 20 mg tablet 20 mg PO QAM Changed famotidine 20 mg tablet 20 mg PO DAILY Qty: 0 0RF trazodone 100 mg tablet 100 mg PO HS Qty: 0 0RF metoprolol tartrate 50 mg tablet 25 mg PO BID Qty: 0 0RF Discontinued Lokelma 10 gram powder in packet 10 g PO . DIRECTED Rx Instructions: CURRENTLY NOT TAKING Print Language: Irish Activity Restrictions/Additional Instructions: I may not have addressed or treated all of your medical illnesses or the abnormal blood work or imaging studies during this hospitalization. Please ask your primary care provider to obtain [facility] records entirely to follow up on all of the abnormal physical, laboratory, and imaging findings that I have not addressed. You have abnormal right lung as we can see on the CAT scan. You have fluid buildup around the lung and you have swelling of the lymph node. I would recommend you to follow-up with the lung specialist Dr. Crowe I would recommend that you have repeat CAT scan of the chest or PET scan in [address] Crowe will decide if you need to follow-up with cancer specialist oncology Dr. Crowe will decide if you need fluid taken out of your pleural space around your lung to analyze it I would recommend that you follow-up with the kidney specialist as listed below to address your kidney dysfunction. I would recommend that your primary care doctor order repeat urine test ( UA ) to make sure that there is no microscopic blood in it. If you continue to have microscopic blood in the urine I would recommend that the PCP refer you to see urology You have swelling in the right groin. I would recommend that your primary care doctor reexamine the right groin and 2 to 4 weeks and proceed with additional needed investigation and/or biopsy as deemed to be appropriate I would recommend that your primary care doctor continues to monitor your liver enzyme and referral to see a liver specialist or GI. Please return back to the emergency room or seek medical attention if your symptoms worsen or return. Discharging you from [facility] does not mean that your medical care ends here and now. You still need additional monitoring, work up, investigation, and treatment plan to be handled from this point on by out patient providers including your primary care provider and specialists. For any medication question, please contact your retail pharmacist or your primary care provider. Thank you. X Ray Consultant/Type Casting Machine Operator Instructions: Discharge with [facility]. Phone number is [phone] Forms: Portal Instructions Follow Up Appointments: PARI Watson 07/26 @ 4pm [phone] Dr. Crowe (Pulmonology) - office will be calling the patient to schedule an appt. [id number] [facility] [phone]
--- NOTE | 2025-07-16 10:27 | PC.NURSE ---
patient passed home O2 walk test
--- NOTE | 2025-07-16 10:38 | CM.NOTE ---
CRF completed for services and signed by Dr. Tobar. Walk test completed and pt will not require oxygen at discharge. F/U appointments complete and discussed with daughter. Daughter requesting medical records, AJIT called Rehana Mcfarland and left message.
--- NOTE | 2025-07-16 10:47 | CM.NOTE ---
CM sent new pt referral from Dr. Tobar along with H&P, progress notes, Discharge summary and radiology reports. [facility] claim agent will contact pt for appointment.
--- NOTE | 2025-07-19 12:37 | CM.DCFOLLOWU ---
Person spoke with: Patients daughter How are you feeling? Better How is your pain? No pain Did you understand your discharge instructions? Yes Do you have any questions about your discharge instructions? No Were you given any prescriptions at discharge? Yes Were you able to get your prescriptions filled? Yes Do you understand how to take your medications as ordered? Yes Do you have any questions about your follow up appointment and do you plan to keep your follow up appointment? No questions. Yes I plan on keeping all the appts. Is there anything else that you would like to discuss? No Questions/Comments/Concerns/Other:
== END 2025-07-16 11:14 | disposition home health service (06) | DRG 194 ==
LOC: ER 07-13 00:04 → MS 07-13 00:51
PROVIDERS: Admitting Provider Internal Medicine; Emergency Provider Internal Medicine; PCP Nurse Practitioner; Visit Provider Internal Medicine
DX: J18.9 Pneumonia, unspecified organism (principal); I13.0 Hypertensive heart and chronic kidney disease with heart failure and stage 1 through stage 4 chronic kidney disease, or unspecified chronic kidney disease; R04.2 Hemoptysis; I50.9 Heart failure, unspecified; N18.30 Chronic kidney disease, stage 3 unspecified; I27.20 Pulmonary hypertension, unspecified; I25.10 Atherosclerotic heart disease of native coronary artery without angina pectoris; Z95.1 Presence of aortocoronary bypass graft; R79.89 Other specified abnormal findings of blood chemistry; D64.9 Anemia, unspecified; Z85.118 Personal history of other malignant neoplasm of bronchus and lung; Z90.2 Acquired absence of lung [part of]; R93.89 Abnormal findings on diagnostic imaging of other specified body structures; I73.9 Peripheral vascular disease, unspecified; Z79.02 Long term (current) use of antithrombotics/antiplatelets; Z79.01 Long term (current) use of anticoagulants; Z95.828 Presence of other vascular implants and grafts; I34.0 Nonrheumatic mitral (valve) insufficiency; R59.1 Generalized enlarged lymph nodes; R00.1 Bradycardia, unspecified; R31.29 Other microscopic hematuria; R91.8 Other nonspecific abnormal finding of lung field; K57.30 Diverticulosis of large intestine without perforation or abscess without bleeding; Z86.0100 Personal history of colon polyps, unspecified
CPT/HCPCS: 36415; 51702; 71046; 71250; 78582; 80048; 80053; 80061; 80074; 80076; 81001; 82728; 83540; 83605; 83880; 84100; 84484; 85025; 85027; 85378; 87040; 87070; 87205; 87420; 87804; 87811; 93005; 93970; 94761; 96365; 96368; 96375; 97162; 97530; 99285; A9540; A9567; J0456; J0696; J1100; J1938; J2543; J2550

== ENCOUNTER 2025-07-22 10:33 | Outpatient (OUT) | payer MEDICARE, SELFPAY ==
--- OUTSIDE RECORDS SUMMARY | 2025-07-22 10:43 | XMS_ITS | CCD ---
Author Organization [facility] Care Team Providers Care Shirring Machine Operator Automatic Name Role Phone AMBURN, JOMAR Unavailable Unavailable AMBURN, JOMAR Unavailable Unavailable AMBURN, JOMAR Unavailable Unavailable AMBURN, JOMAR Unavailable Unavailable AMBURN, JOMAR Unavailable Unavailable AMBURN, JOMAR Unavailable Unavailable Genesis, Thomas Unavailable Reuben Triana Unavailable Susannah Nevarez Unavailable Cristo Suazo Unavailable Cristo Suazo Unavailable Genesis, Thomas Unavailable Corona Monroe Unavailable Genesis, Thomas Unavailable MD Corona Monroe Attending Provider [phone] DO Daria Cardoza Primary Care Provider [phone] Genesis, Thomas Unavailable Nadira Choi Unavailable Hanna [...] Cornelio LEMON, Awad Primary Care Provider Genesis ELMON, Thomas Unavailable EUN KAUFMAN Referring Unavailable Cornelio LEMON [facility] Unavailable Jose Beckford MD Primary Care Provider Ivonne OPERATIONS FORESTER, Jayy Unavailable Vannessa Russell MA Unavailable Unavailable Cornelio LEMON, [facility] Primary Care Provider [phone] Ivonne OPERATIONS FORESTER, Jayy Unavailable Shirley CUFF MATCHER-FLIGHT OPERATIONS ENGINEER, Noa Hurley Primary Care Provider NOA WATSON Attending Unavailable NOA WATSON Attending Unavailable SHAIKH GRIMES Attending Unavailable JAYY CORONADO Attending Unavailabl e NOA WATSON Attending Unavailable NOA WATSON Attending Unavailable JAYY CORONADO Attending Unavailabl e Aichholz CUFF MATCHER-FLIGHT OPERATIONS ENGINEER, Noa J Primary Care Provider Noa Watson CNP Primary Care Provider BILL GANT Referring Unavailable NOA WATSON Primary Care Unavailable BILL GANT Attending Unavailable SELF Referring Unavailable NOA WATSON Primary Care Unavailable JAYY CORONADO Referring Unavaila ble CORNELIO [facility] Primary Care Unavailable SARAH TOLLIVER Referring Unavailable CORNELIO [facility] Primary Care Unavailable NOA WATSON J Referring [...] Care Unavailable Cornelio LEMON, Primary Care Provider [phone] Cornelio LEMON, Unavailable Jose Beckford MD Primary Care Provider Ivonne YAÑEZ, Jayy Unavailable [phone] Vannessa Russell MA Un[facility] Referring Unavailable WILL KEYS Referring Unavailable [...] Translations: [PENICILLINS]Propensity to adverse reactions to drug (disorder)[phone] ([facility] source)NO ACTIVE ALLERGIES; Translations: [NO ACTIVE ALLERGIES]Propensity to adverse reactions (disorder)[facility] Repository Medications Current Medications MedicationDrug Class(es)DatesSig (Normalized)Sig (Original)[id number] 200 actuat albuterol 0.09 mg/actuat metered dose inhaler (20 sources)beta2-Adrenergic AgonistStart: 24-30-9804ajcu 2 puff(s) by inhalation every four hours as needed for wheezingalbuterol (PROVENTIL HFA;VENTOLIN HFA) 90 mcg/actuation inhaler Indications: Acute bronchitis, unspe cified organism Inhale 2 puffs every 4 (four) hours as needed for wheezing. 18 g 02/26/2024 ActiveStart: 12-02-2021 End: 51-04-3104sbxk 1 puff(s) by mouth every four hours as neededalbuterol HFA (PROVENTIL HFA, VENTOLIN HFA) 90 mcg/actuation inhaler INHALE 1 PUFF BY MOUTH EVERY 4HOURS NEEDED 12/02/2021 ActiveStart: 50-82-0912Ppsrqzdgp Sulfate 90 mcg/actuation HFA aerosol inhaler Active 90 MCG INHALATION Q4H as needed for Sh ortness Of Breath September 13, 2020 1:00amStart: 95-32-7741bwae 1 puff(s) by inhalation every four hours as neededVentolin HFA 108 (90 Base) MCG/ACT 1 puff as needed Inhalation every 4 hrs for 30 day(s) PRN Jul, Not-TakingStart: 68-45-4154gajq 2 puff(s) by inhalation every four hours [...] (20 sources)Dihydropyridine Calcium Channel BlockerStart: 03-11-2024 End: 87-68-6668dnau 1 tablet by mouth onceamLODIPine (Norvasc) 5 MG tablet Indications: Primary hypertension Take 1 tablet (5 mg) by mouth every 12 (twelve) hours 180 tablet 1 03/01/2025 05/30/2025 ActiveStart: 23-84-9533lewl 1 tablet by mouth twice dailyAmlodipine 5 mg tablet Active 5 MG PO Twice daily October 15, 2023 4:56pmStart: 10-22-2019 End: 28-34-0204hfzf 1 tablet by mouth once dailyAmlodipine 5 [...] Inhibitor, Nonsteroidal Anti-inflammatory Drug Start: 10-22-2019 End: 52-94-2420urgx 1 tablet by mouth in the morningaspirin 81 MG EC tablet Indications: 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 Take 1 tablet [...] tablet (20 sources)HMG-CoA Reductase InhibitorStart: 10-22-2019 End: 21-90-0300mqhn 1 tablet by mouth at bedtimeatorvastatin (Lipitor) 80 MG tablet Indications: Other hyperlipidemia Take 1 tablet (80 mg) by mouth at bedtime 90 tablet 1 03/01/2025 05/30/2025 ActiveComment on above:atorvastatin 80 mg tablet TAKE 1 TABLET BY MOUTH EVERY DAYbaclofen 10 mg oral tablet (20 sources)gamma-Aminobutyric Acid-ergic AgonistStart: 83-50-9382iwnu 1 tablet by mouth once daily as neededbaclofen (LIORESAL) 10 mg tablet Take 1 tablet (10 mg total) by mouth daily as needed. 12/24/2024 ActiveStart: 11-19-2024 End: 47-17-4692jvzftgwt (Lioresal) 10 MG tablet Indications: Neck pain Take 1 tablet (10 mg) by mouth as needed atbedtime for muscle spasms for up to 15 days 15 tablet 12/24/2024 Ggjidb07 hr buPROPion hydrochloride 300 mg extended release oral tablet (20 sources)AminoketoneStart: 03-11-2024 End: 64-16-9402xzxc 1 tablet by mouth every twenty-four hours in the morning buPROPion XL (Wellbutrin XL) 300 MG 24 hr tablet Indications: Recurrent major depression in partialremission Take 1 tablet (300 mg) by mouth in the morning. Do not crush, chew, or split. 90 tablet 05/30/2025 ActiveStart: 64-13-4716damu 1 tablet by mouth once daily in the morningStart: 09-19-2023 End: 24-71-3747jmqg 1 tablet by mouth every twenty-four hours in the morning buPROPion XL (Wellbutrin XL) 300 MG 24 hr tablet Indications: Recurrent major depression in partialremission (HCC) (CMS/HCC) Take 1 tablet (300 mg) by mouth in the morning. Do not crush, chew, or split.. 90 tablet 0 09/19/2023 12/18/2023 ActiveStart: 12-04-2021 End: 33-44-2860eant 1 tablet by mouth once daily in the morningbuPROPion XL (WELLBUTRIN XL) 150 mg 24 hr tablet TAKE 1 TABLET BY MOUTH EVERY DAY IN THE MORNING 0 12/04/2021 04/10/2022 DiscontinuedStart: 10-22-2019 End: 47-79-9203lcwi 1 tablet by mouth once dailyBupropion Hcl 100 mg Tablet Sustained-Release 12 Hr Discontinued 100 MG PO Daily October 22, 2019 12:00am October 15, 2023 4:57pmStart: 10-22-2019 End: 04-14-2152bcmz 1 tablet by mouth once dailyBupropion Hcl [...] mg oral tablet (20 sources)Start: 10-22-2019 End: 68-61-0843puaq 1 tablet by mouth in the morningbusPIRone [...] tablet (20 sources)P2Y12 Platelet InhibitorStart: 10-22-2019 End: 56-64-7330nubs 1 tablet by mouth once dailyclopidogrel (Plavix) 75 MG tablet Indications: 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 Take 1 tablet (75 mg) by mouth Daily 90 tablet 1 03/01/2025 05/30/2025 ActiveComment on above:clopidogrel 75 mg tablet TAKE 1 TABLET BY MOUTH AT BEDTIMEempagliflozin 10 mg oral tablet (2 sources)Sodium-Glucose Cotransporter 2 InhibitorStart: 33-96-1402bkyt 1 tablet by mouth once daily at breakfastempagliflozin (JARDIANCE) 10 mg tablet Take 1 tablet by mouth daily with breakfast. 30 tablet 11 04/02/2025 Active famotidine 20 mg oral tablet (20 sources)Histamine-2 Receptor AntagonistStart: 10-22-2019 End: 37-03-8460iimj 1 tablet by mouth in the morningfamotidine [...] sources)Peroxisome Proliferator Receptor alpha AgonistStart: 10-22-2019 End: 95-44-5065gmdq 1 capsule by mouth twice dailyFenofibrate Micronized 43 mg capsule Take 43 mg by mouth twice daily. 12/15/2021 Activetake 1 capsule by mouth once daily before breakfastfenofibrate micronized (ANTARA) 43 mg capsule Take 1 capsule (43 mg total) by mouth every morning before breakfast. Active Comment on above:Take 43 mg by mouth twice daily.ferrous sulfate 325 mg oral tablet (8 sources)Start: 01-19-2025 End: 81-96-6147sklp 1 tablet by mouth at mealtimeferrous sulfate (FeroSul) 325 (65 Fe) MG tablet Indications: Chronic kidney disease, stage 4 (severe) ([facility]) Take 1 tablet (325 mg) by mouth in the morning. Take with meals. 90 tablet 1 03/01/2025 05/30/2025 ActiveFish Oils (20 sources)take 1 capsule by mouth once dailytake 1 capsule by mouth once daily Fish Oil 1000 MG 1 capsule Orally Once a day Gsudmq938 actuat fluticasone propionate 0.115 mg/actuat / salmeterol 0.021 mg/actuat metered dose inhaler (9 sources)Corticosteroid, beta2-Adrenergic Agonisttake 2 puff(s) by inhalation twice daily30 actuat fluticasone furoate 0.1 mg/actuat / umeclidinium 0.0625 mg/actuat / vilanterol 0.025 mg/actuat dry powder inhaler (20 sources)Anticholinergic, Corticosteroid, beta2-Adrenergic AgonistStart: 02-18-2024 End: 42-53-1280lueg 1 puff(s) by mouth once daily, then take 1 puff(s) by mouth once stzmfChvccuyxcyv-Gveqzfagm-Hjciwm (Trelegy Ellipta) 100-62.5-25 MCG/ACT aerosol powder Indications: Chronic obstructive pulmonary disease, unspecified COPD type (HCC) Inhale 1 puff Daily Rinse mouth afteruse. Inhale 1 puff Daily 180 each 1 03/01/2025 05/30/2025 ActiveStart: 02-18-2024 End: 11-98-1037nchi 1 puff(s) by inhalation in the morning jpidsfgifdx-wsvfpjmjy-rprnavmt (TRELEGY ELLIPTA) 100-62.5-25 mcg blister with device Inhale 1 puff in the morning. 02/18/2024 03/24/2025 ActiveStart: 98-71-0832Hdejpwnhbvg-Umeclidin-Vilanter (Trelegy Ellipta) 100-62.5-25 mcg blister with device Active 1 INH INHALATION Daily October 15, 2023 1:00amStart: 09-19-2023 End: 42-64-2732syoq 1 puff(s) by inhalation in the morning Wyrxvtxvybx-Ykpscxqzx-Vgllnr (Trelegy Ellipta) 100-62.5-25 MCG/ACT aerosol powder Indications: Chronic obstructive pulmonary disease, unspecified COPD type (CMS/HCC) Inhale 1 puff in the morning. 90 each 0 09/19/2023 12/18/2023 Active Start: 44-71-8288rykz 1 puff(s) by inhalation once dailyTrelegy Ellipta 100-62.5-25 MCG/INH 1 puff Inhalation Once a day for 30 days Feb, Active End: 96-28-2733Eqjyjdkvhrv-Umeclidin-Vilant (Trelegy Ellipta) 100-62.5-25 MCG/ACT aerosol powder Inhale 0 09/19/2023 Discontinued (Reorder)furosemide 20 mg oral tablet (2 sources)Loop DiureticStart: 90-99-4345ozww 1 tablet by mouth once daily in the morningfurosemide (LASIX) 20 mg tablet Take 1 tablet by mouth every morning. 30 tablet 11 04/02/2025 Xfjpok08 hr isosorbide mononitrate 60 mg extended release oral tablet (20 sources)Nitrate VasodilatorStart: 09-19-2023 End: 72-84-5473syvi 1 tablet by mouth every twenty-four hours in the morning isosorbide mononitrate ER (Imdur) 60 MG 24 hr tablet Indications: Coronary artery disease involvingnative coronary artery of chickaloon heart without angina pectoris (CMS/HCC) , Primary hypertension (CMS/HCC) Take 1 tablet (60 mg) by mouth in the morning. Do not crush or chew.. 90 tablet 0 09/19/2023 12/18/2023 ActiveStart: 10-22-2019 End: 66-41-6003cdjt 1 tablet by mouth once dailyisosorbide mononitrate ER (Imdur) 60 MG 24 hr tablet Indications: Primary hypertension , 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 Take 1 tablet(60 mg) by mouth Daily Do not crush or chew. 90 tablet 1 03/01/2025 05/30/2025 ActiveComment on above:isosorbide mononitrate ER 60 mg tablet,extended release 24 hr TAKE 1 TABLET BY MOUTH EVERY MORNINGlisinopril 10 mg oral tablet (20 sources)Angiotensin Converting Enzyme InhibitorStart: 12-24-2024 End: 69-36-6799sqdt 1 tablet by mouth once dailylisinopril 10 MG tablet Indications: Primary hypertension Take 1 tablet (10 mg) by mouth Daily 90 tablet 1 03/01/2025 05/30/2025 ActiveComment on above:lisinopril 10 mg tabletmetoprolol tartrate 50 mg oral tablet (20 sources)beta-Adrenergic BlockerStart: 03-11-2024 End: 44-32-9981rwbn 1 tablet by mouth in the morningmetoprolol tartrate (Lopressor) 50 MG tablet Indications: Primary hypertension , Coronary artery dis ease involving chickal[place] coronary artery of chickal[place] heart without angina pectoris Take 1 tablet (50 mg)by mouth in the morning and 1 tablet (50 mg) before bedtime. 180 tablet 1 03/01/2025 05/30/2025 ActiveStart: 09-19-2023 End: 79-78-5762yteo 1 tablet by mouth in the morningmetoprolol tartrate (Lopressor) 50 MG tablet Indications: Coronary artery disease involving chickaloon c oronary artery of chickaloon heart without angina pectoris (CMS/HCC) , Primary hypertension (CMS/HCC) Take 1 tablet (50 mg) by mouth in the morning and 1 tablet (50 mg) before bedtime. 180 tablet 0 09/19/2023 12/18/2023 ActiveStart: 10-22-2019 End: 64-10-2820izdt 1 tablet by mouth once dailyMetoprolol Succinate [...] BY MOUTH TWICE DAILYMultivitamin preparation (2 sources)Start: 83-16-1499jycy 1 tablet by mouth once dailyMultivitamin Active 1 TAB PO Daily September 13, 2020 1:00amMultivitamin Tablet (2 sources)Start: 25-42-4037drjp 1 tablet by mouth once dailyMultivitamin Tablet Active 1 TAB PO Daily September 13, 2020 1:00amNitro Sublingual 0.4 0.4mg (20 sources)Nitro Sublingual 0.4 0.4mg 1 Sublingual Every 5min x3 PRN Active nitroglycerin 0.4 mg sublingual tablet (20 sources)Nitrate VasodilatorStart: 10-15-2023 End: 68-34-0458Vhrjg: 10-22-2019 End: 25-45-1494asudwowvtczkd (Nitrostat) 0.4 MG SL tablet Indications: 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 Place 1 tablet (0.4 mg) under the tongue every5 (five) minutes if needed for chest pain 30 tablet 06/17/2024 Activenitroglycerin sublingual (NITROQUICK) 0.4 mg SL tablet nitroglycerin 0.4 mg sublingual tablet Active Comment on above:nitroglycerin 0.4 mg sublingual tabletOLANZapine 5 mg oral tablet (20 sources)Atypical AntipsychoticStart: 01-19-2025 End: 16-91-4828mmmh 1 tablet by mouth once daily at bedtimeOLANZapine (ZYPREXA) 5 mg tablet Take 5 mg by mouth daily at bedtime. 03/01/2025 05/30/2025 Active Start: 12-01-2024 End: 05-59-2826sbuk 1 tablet by mouth at bedtimeOLANZapine (ZyPREXA) 2.5 MG tablet Indications: EDITH (generalized anxiety disorder) (CMS/HCC) Take 1tablet (2.5 mg) by mouth at bedtime 90 tablet 1 12/24/2024 01/19/2025 Discontinued (Ineffective)Start: 09-19-2023 End: 55-66-5254dwwq 1 tablet by mouth once dailyStart: 10-22-2019 End: 29-30-1668gigv 1 tablet by mouth once daily at bedtimeOlanzapine 5 mg Tablet Discontinued 5 MG PO Daily at bedtime October 22, 2019 12:00am October 15, 2023 5:01pmComment on above:olanzapine 5 mg tablet TAKE 1 TABLET BY MOUTH EVERY DAY AT BEDTIMEomega 3-kkj-zdi-fish oil (FISH OIL) 100-160-1,000 mg cap (16 sources)omega 1-yra-gcm-fish oil (FISH OIL) 100-160-1,000 mg cap Take by mouth. Activeomega 0-pxj-kzz-fish oil (FISH OIL) 100-160-1,000 mg cap Take by mouth. 0 ActiveComment on above:Take by mouth.[place]-3 Fatty Acids (2 sources)Start: 93-70-3127atrv 1000 mg by mouth once dailyOmega-3 Fatty Acids Active 1000 MG PO Daily September 13, 2020 1:00amOmega-3 Fatty Acids Capsule (2 sources)Start: 81-56-1931mbte 1 capsule by mouth once dailyOmega-3 Fatty Acids Capsule Active 1000 MG PO Daily September 13, 2020 1:00amPaxlovid 10 x 150 MG & 10 x 100MG (1 source)Start: 26-10-6396Nwnhhsaj 10 x 150 MG & 10 x 100MG as directed Orally Twice a day for 5 days Feb, Activesertraline 100 mg oral tablet (20 sources)Serotonin Reuptake InhibitorStart: 03-11-2024 End: 08-84-8254bjla 2 tablets by mouth once dailysertraline (Zoloft) 100 MG tablet Indications: EDITH (generalized anxiety disorder) , Recurrent major depression in partial remission Take 2 tablets (200 mg) by mouth Daily 180 tablet 1 03/01/2025 05/30/2025 ActiveStart: 17-35-7580hquu 1.5 tablets by mouth once dailyStart: 11-71-4382qwgi 1.5 tablets by mouth once dailyStart: 09-19-2023 End: 68-46-3126jtrt 2 tablets by mouth at bedtimesertraline (Zoloft) 100 MG tablet Indications: Major Depressive Disorder Take 2 tablets (200 mg) bymouth at bedtime 180 tablet 0 09/19/2023 12/18/2023 ActiveStart: 10-22-2019 End: 58-38-6614hycr 1 tablet by mouth once dailySertraline 100 [...] tablet (20 sources)Serotonin Reuptake InhibitorStart: 10-22-2019 End: 87-74-2692yklo 1 tablet by mouth once daily at bedtimetraZODone (DESYREL) 100 mg tablet Take 100 mg by mouth daily at bedtime. 08/10/2022 ActiveComment on above:Take 100 mg by mouth daily at bedtime.Trelegy Ellipta 100-62.5-25 MCG/INH (3 sources)Start: 28-10-0595rvip 1 puff(s) by inhalation once dailyTrelegy Ellipta 100-62.5-25 MCG/INH 1 puff Inhalation Once a day for 30 days Feb, ActiveStart: 00-04-6933Kbuqy: 03-16-2983jyte 1 puff(s) by inhalation once dailyTrelegy Ellipta 100-62.5-25 MCG/INH 1 puff Inhalation Once a day for 30 days Feb, Not-Takingzolpidem tartrate 10 mg oral tablet (13 sources)gamma-Aminobutyric Acid-ergic AgonistStart: 38-20-2149usku 1 tablet by mouth every twenty-four hoursAmbien 10 MG 1 tablet at bedtime Orally Once a day for 30 days g47.0 Jan, Active{10 (nirmatrelvir 150 MG Oral Tablet) / 10 (ritonavir 100 MG Oral Tablet) } Pack [Paxlovid 150 MG /100 MG Dose Pack] (3 sources)Start: 38-78-8929Cqmpu: 12-14-1083Rrozdadj 10 x 150 MG & 10 x 100MG as directed Orally Twice a day for 5 days Feb, Active Completed/Discontinued Medications MedicationDrug Class(es)DatesSig (Normalized)Sig (Original)amoxicillin 875 mg / clavulanate 125 mg oral tablet (3 sources)Penicillin-class AntibacterialStart: 04-09-2023 End: 71-51-2999osyb 1 tablet by mouth twice dailyAmoxicillin-Pot Clavulanate 875-125 mg tablet Discontinued 1 TAB PO Twice daily April 09, 2023 12:00am October 15, 2023 4:56pmdoxepin hydrochloride 50 mg oral capsule (18 sources)Tricyclic AntidepressantStart: 89-47-6791hcsp 1 capsule by mouth every twenty-four hoursDoxepin HCl 100 MG 1 capsule at bedtime Orally Once a day for 30 days Nov, ActiveStart: 33-37-3384wkwl 1 capsule by mouth every twenty-four hoursDoxepin HCl 25 MG 1 capsule at bedtime Orally Once a day for 30 day(s) Nov, ActiveStart: 12-04-2021 End: 90-64-5121ttghnhx capsule 50 mg30 actuat fluticasone furoate 0.1 mg/actuat / vilanterol 0.025 mg/actuat dry powder inhaler (17 sources)Corticosteroid, beta2-Adrenergic AgonistStart: 09-13-2020 End: 70-54-9853Bhjqibqpfza Furoate-Vilanterol (Breo Ellipta) 100-25 mcg/dose blister with device Discontinued 1 INH INHALATION Daily September 13, 2020 1:00am October 15, 2023 5:02pmStart: 08-01-2020 End: 91-40-7232nomo 1 puff(s) by mouth once dailyBREO ELLIPTA 100-25 mcg/dose inhaler INHALE 1 PUFF BY MOUTH EVERY DAY 0 11/05/2021 02/09/2022 Discontinued Start: 02-65-7662Vsgwabg on above:INHALE 1 PUFF BY MOUTH EVERY DAY methylPREDNISolone (9 sources)CorticosteroidStart: 12-22-2021 End: 13-07-0598xqrkjlOPVKYONvkznx (MEDROL, TEAGAN,) 4 mg Dose-Pack Take as instructed 1 Package 0 12/22/2021 08/15/2022 DiscontinuedStart: 12-22-2021 methylPREDNISolone (MEDROL, TEAGAN,) 4 mg Dose-Pack Take as instructed 1 Package 0 12/22/2021 ActiveComment on above:Take as instructed Wjfgqxchlzhmw-Tvxfbybn-Gpegsf (MULTIVITAMIN 50 PLUS) tab (9 sources) End: 31-27-5759Wvrecuqsopsqd-Minerals-Lutein (MULTIVITAMIN 50 PLUS) tab Take 1 tablet by mouth once daily. 0 08/15/2022 Discontinued Hdsuxaraylxip-Csjqfxti-Qelael (MULTIVITAMIN 50 PLUS) tab Take 1 tablet by mouth once daily. 0 ActiveComment on above:Take 1 tablet by mouth once daily. predniSONE 20 mg oral tablet (9 sources)Start: 01-19-2025 End: 62-97-5052qzjvwcQRSX (Deltasone) 20 MG tablet Indications: Neck pain Twice a day for 3 days, then once a day for 3 days, take with food 9 tablet 01/19/2025 03/01/2025 Discontinued (Therapy completed)Start: 44-79-4868puyevnDAJC (DELTASONE) 20 mg tablet 60mg x3d, 40mg x3d, 20mg x3d, 10mg x4d 20 tablet 02/26/2024 ActivetraMADol hydrochloride 50 mg oral tablet (4 sources)Opioid AgonistStart: 09-30-2020 End: 54-17-0051ekrj 0.5-1 tablets by mouth every six hours as needed for pain Tramadol (Ultram) 50 mg tablet Discontinued 50 MG PO Q6H as needed for pain 10 03September 30, 2020 1:00am October 15, 2023 5:00pm 1/2 - 1 tab po q 6 hours prn pain Problems Active Problems Problem ClassificationProblemDateDocumented DateEpisodic/ChronicAbdominal hernia (4 sources)Hernia of anterior abdominal wall; Translations: [Ventral hernia without obstruction or gangrene]13-22-1489EvderrddTaqfmcv on above:Problem List clean-up per request of Phys. EHR CmteAbdominal pain (1 source)Unspecified abdominal pain; Translations: [Unspecified abdominal pain] Onset: 06-63-8765QsffomliQejbc and unspecified renal failure (2 sources)Acute kidney failure, unspecified; Translations: [KELLIE (acute kidney injury) N17.9]Onset: 05-23-2021 Resolved: 86-92-4101FzdoaxmoIahbomo disorders (20 sources)Generalized anxiety disorder; Translations: [Generalized anxiety disorder]Onset: 169376-08-9589WkvccgwRbkxtcs kidney disease (20 sources)Chronic kidney disease stage 3; Translations: [Chronic kidney disease, stage 3 (moderate)]Onset: 636748-21-8839HijplxfRgfylsg kidney disease (15 sources)Chronic kidney disease; Translations: [Chronic kidney disease, stage 3b]Onset: 05-23-2021 Resolved: 46-05-0845Ylyyfhv obstructive pulmonary disease and bronchiectasis (20 sources)Simple chronic bronchitis; Translations: [Simple chronic bronchitis] Onset: 01-05-2022 Resolved: 86-14-3134RyflhhoAcpp; stupor; and brain damage (15 sources)Daytime somnolence; Translations: [Somnolence]Onset: 01-29-2022 Resolved: 79-61-4642ZhktfmcxKmvdpjwvzzxl of device; implant or graft (20 sources)Arteriosclerosis of coronary artery bypass graft; Translations: [Atherosclerosis of coronary arterybypass graft(s) without angina pectoris] Onset: 05-23-2021 Resolved: 87-61-6133DmrahtqOilwrvtmwkdle of surgical procedures or medical care (2 sources)Infection following a procedure, other surgical site, initial encounter; Translations: [Infection following a procedure, other surgical site, initial encounter]Onset: 70-29-5780EsgehypxJdsijyrcor heart failure; nonhypertensive (13 sources)Chronic diastolic heart failure; Translations: [Chronic diastolic (congestive) heart failure]Onset: [id number] atherosclerosis and other heart disease (20 sources)Atherosclerotic heart disease of [place] coronary artery without angina pectoris; Translations: [Coronary arteriosclerosis]Onset: 07-27-2022 ChronicCoronary atherosclerosis and other heart disease (1 source)Presence of aortocoronary bypass graft; Translations: [Hx of CABG] Onset: 91-44-3109LrjxmeezEvoqevfdnb and other anemia (3 sources)Anemia; Translations: [Anemia, unspecified]78-84-4959Tokqrsqv Delirium, dementia, and amnestic and other cognitive disorders (3 sources)Dementia associated with another disease; Translations: [Dementia in other diseases classified elsewhere with behavioral disturbance]ChronicDisorders of lipid metabolism (20 sources)Hyperlipidemia; Translations: [Hyperlipidemia, unspecified]Onset: 07-18-2012 Resolved: 54-79-5206PbdwgpkAnvrotheqpituj and diverticulitis (3 sources)Diverticulitis of sigmoid colon; Translations: [Diverticulitis of large intestine without perforation or abscess without bleeding]04-17-2023 ChronicEsophageal disorders (20 sources)Gastroesophageal reflux disease without esophagitis; Translations: [Gastro-esophageal reflux disease without esophagitis]Onset: 07-18-2012 34-01-4124BbmdntnFbgqfvmnl hypertension (20 sources)Essential hypertension; Translations: [Essential (primary) hypertension]Onset: 05-28-2014 Resolved: 12-11-2961KkfqopoIfzqy and electrolyte disorders (13 sources)Hyperkalemia; Translations: [Hyperkalemia]Onset: 10-55-7572Pzuhusbs Headache; including migraine (20 sources)Migraine; Translations: [Migraine, unspecified, not intractable, without status migrainosus]Onset: [id number] valve disorders (3 sources)Nonrheumatic mitral (valve) insufficiency; Translations: [Non- rheumatic mitral regurgitation ]Onset: 991341-19-6723IcahxgqUyirwrygyhlr with complications and secondary hypertension (20 sources)Malignant hypertensive chronic kidney disease; Translations: [Hypertensive chronic kidney disease with stage 1 through stage 4 chronic kidney disease, or unspecified chronic kidney disease]Onset: 05-23-2021 Resolved: 94-90-2195BckmwpqWxgneew and fatigue (20 sources)Fatigue; Translations: [Chronic fatigue, unspecified]ChronicMalaise and fatigue (2 sources)Asthenia; Translations: [Weakness]43-20-7225UvjxobypDibwd aftercare (2 sources)Encounter for other specified surgical aftercare; Translations: [Encounter for other specified surgical aftercare]Onset: 24-25-7791UxlfqhzgVawbx circulatory disease (2 sources)Presence of other vascular implants and grafts; Translations: [Presence of other vascular implants and grafts]Onset: 81-27-0614TjqlchtMdcte circulatory disease (2 sources)Disorder of arteries and arterioles, unspecified; Translations: [Disorder of arteries and arterioles, unspecified]Onset: 89-88-5394PjhzvgyFugjk circulatory disease (2 sources)Other specified symptoms and signs involving the circulatory and respiratory systems; Translations:[Other specified symptoms and signs involving the circulatory and respiratory systems]Onset: 20-82-4614FwfabrctYcgge circulatory disease (2 sources)Other disorder of circulatory system; Translations: [Other disorder of circulatory system]Onset: 40-06-6649SnyhjsziUhgpy connective tissue disease (2 sources)Pain in right leg; Translations: [Pain in right leg]Onset: 04-23-2025 EpisodicOther connective tissue disease (2 sources)Pain in left leg; Translations: [Pain in left leg]Onset: 04-23-2025 EpisodicOther hereditary and degenerative nervous system conditions (20 sources)Impaired cognition; Translations: [Mild cognitive impairment, so stated]Onset: 32-77-7886PkvedmeYjaph hereditary and degenerative nervous system conditions (1 source)Extrapyramidal and movement disorder, unspecified; Translations: [Movement disorder]Onset: 34-45-3188SyffcrxIbcnb lower respiratory disease (15 sources)Nodule of lung; Translations: [Solitary pulmonary nodule]Episodic Other lower respiratory disease (3 sources)Solitary pulmonary noduleOnset: 01-05-2022 Resolved: 82-68-4891HfzzuzwbRvoad lower respiratory disease (2 sources)Other forms of dyspnea; Translations: [ROMAN (dyspnea on exertion)] Onset: 02-27-2022 Resolved: 07-69-1697LmpdfafoTgrrv lower respiratory disease (2 sources)Dyspnea on exertion; Translations: [Other forms of dyspnea]04-01-2025 EpisodicOther nervous system disorders (3 sources)Abnormal gait; Translations: [Unspecified abnormalities of gait and mobility]88-18-2991NsglpxvyUyhzk nervous system disorders (2 sources)Impaired qrzodkkhg74-37-3908IdwtikakSpogvfvery and visceral atherosclerosis (20 sources)Atherosclerosis of arteries of the extremities; Translations: [Unspecified atherosclerosis of chickaloon arteries of extremities, unspecified extremity]Onset: 901339-16-6615SanrfrrLrpwrgsmb heart disease (10 sources)Pulmonary hypertension; Translations: [Pulmonary hypertension, unspecified]Onset: 751989-69-0375PlloglwBuugsuss codes; unclassified (11 sources)Sleep apnea; Translations: [Sleep apnea, unspecified]ChronicResidual codes; unclassified (1 source)Sleep apnea, unspecifiedOnset: 02-27-2022 Resolved: 24-18-3063OmhbkhdZuzktzrp codes; unclassified (6 sources)Obstructive sleep apnea syndrome; Translations: [Obstructive sleep apnea (adult) (pediatric)]78-39-8389NjrepxzMlgzdcnw codes; unclassified (1 source)Obstructive sleep apnea (adult) (pediatric)ChronicResidual codes; unclassified (1 source)Obstructive sleep apnea (adult)(pediatric); Translations: [Obstructive sleep apnea (adult) (pediatric)]Onset: 93-35-9179BkkdijrLzefnagb codes; unclassified (11 sources)History of lung lobectomy; Translations: [Acquired absence of lung [part of]]EpisodicResidual codes; unclassified (2 sources)Acquired absence of lung [part of]Onset: 02-27-2022 Resolved: 45-01-5220YmshuwyjTooclnpw codes; unclassified (4 sources)Amnesia; Translations: [Other amnesia]40-81-3701IbgguzkqHhdzrfqw codes; unclassified (1 source)Other amnesia; Translations: [Memory loss]Onset: 64-41-4264Mmtmaitp Residual codes; unclassified (1 source)Memory impairment; Translations: [Other amnesia]72-68-2664SggwesxtDybf and subcutaneous tissue infections (2 sources)Cellulitis, unspecified; Translations: [Cellulitis, unspecified] Onset: 83-91-7158CnjcmacwNajoqizezpr; intervertebral disc disorders; other back problems (20 sources)Cervical spondylosis; Translations: [Spondylosis without myelopathy or radiculopathy, cervical region]Onset: 299415-28-6353EnxfunzCbygmpnrtnbs (2 sources)Consult; Translations: [Consult]Onset: 04-21-2025 Past or Other Problems Problem ClassificationProblemDateDocumented DateEpisodic/ChronicCancer of bronchus; lung (20 sources)History of malignant neoplasm of thoracic cavity structure; Translations: [Personal history of other malignant neoplasm of bronchus and lung]Onset: 02-27-2022 Resolved: 49-45-2037ExtosspzRzlxiihvce and other anemia (5 sources)Anemia, unspecified; Translations: [Anemia, unspecified]Onset: 423259-73-1609LjjitfruMcdekzvr of upper limb (20 sources)Closed fracture proximal humerus, greater tuberosity; Translations: [Nondisplaced fracture of greater tuberosity of left humerus, subsequent encounter for fracture with routine healing]Onset: 258937-78-3599Jbrcqsji Mood disorders (20 sources)Depressive disorder; Translations: [Depression, unspecified depression type]Onset: 12-18-2021 Resolved: 45-07-4992RrlwxkmVeeekwkwuiv chest pain (2 sources)Chest pain; Translations: [Chest pain, unspecified]Onset: 09-18-2013 07-03-9935HgqhwzseSumuh connective tissue disease (20 sources)Recurrent falls ; Translations: [Repeated falls]Onset: 06-17-2024 96-62-9550HvdhmhpvItgau connective tissue disease (2 sources)Repeated falls; Translations: [Repeated falls]Onset: 10-13-2024 EpisodicOther lower respiratory disease (7 sources)Shortness of breath; Translations: [SHORTNESS OF BREATH]Onset: 12-26-2021 Resolved: 81-14-3572CnpzjrqyRsknc lower respiratory disease (16 sources)Dyspnea; Translations: [Shortness of breath]Onset: 09-18-2013 EpisodicOther lower respiratory disease (2 sources)Dyspnea, unspecified; Translations: [Dyspnea, unspecified]Onset: 78-51-5641KxbzmlcvCctkn nervous system disorders (20 sources)Functional gait abnormality; Translations: [Other abnormalities of gait and mobility]Onset: 840682-36-2156JlgdnyzfQcwiu nervous system disorders (2 sources)Other abnormalities of gait and mobility; Translations: [Other abnormalities of gait and mobility]Onset: 50-14-4824XhqkrhkpPcvvm screening for suspected conditions (not mental disorders or infectious disease) (2 sources)Abnormal results of cardiovascular function studies; Translations: [Abnormal result of cardiovascular function study, unspecified]Onset: 09-30-2013 89-31-2458MiamljcxGdjfvymntwh; intervertebral disc disorders; other back problems (20 sources)Neck pain; Translations: [Cervicalgia]Onset: EpisodicSprains and strains (20 sources)Strain of muscle(s) and tendon(s) of the rotator cuff of left shoulder, subsequent encounter; Translations: [Other specified aftercare]Onset: 483567-79-7211Dmmvutmj Results Test NameValueInterpretationReference SshtwHqwdpxfq52sn 38-32-818855Twr patient is Moderately Stable - Low risk [...] injury: Assess patient frequently for physical needs [place] fall precautions as indicated by assessment Instruct [...] the shift include vss, safety, and comfortNormal [facility] HospitalMAGNESIUMon 17-74-5046Mspjxpurd [Mass/Vol]1.7 mg/dLLow1.9-2.7UnTrinity Health System Twin City Medical CenterComment on above:Performed By: #### [id number] ####[facility] ([facility]AK[facility])[address] [place] [address] 30on 72-94-852760Rjhej Case Management Update Multidisciplinary rounds have been completed. Barriers to Discharge: Patient is medically ready for hospital discharge at this time. AVS has been completed, and primary RN has been notified of patients discharge readiness. Vascular Surgery has ordered a home wound vac for patient. [facility] has hand faxed necessary documentation for home wound vac approval, and will await confirmation. [facility] will continue to follow and provide any updates on discharge. 1749: [facility] able to access [employer] online system to check status of patients ready. Currently system is not showing an approved home vac. [facility] is currently in communication with [facility]/[place] patient patient support partner to clarify. [facility] will provide updates as able. Diet: Dietary Orders (From admission, onward) Start Ordered 06/15/252142 Regular Diet Diet effective now Question: Room Service? Answer: Yes 06/15/252144 Physician Expected Discharge Date: 06/18/2025 Discharge Delays: PT Six Click Score: OT Six Click Score: PT Recommendations: OT Recommendations: Does patient understand post acute plan of care? Yes Is expected discharge disposition appropriate for patient?: Yes New Consults:NormalUnTrinity Health System Twin City Medical Center30The patient is Moderately Stable - Low risk of patient condition declining or worsening The patient's goals for the shift include comfort The clinical goals for the shift include comfortNormalUniversUniversity Hospitals Health SystemBASIC METABOLIC PANELon 64-87-6275Uowzp gap [Moles/Vol]13 mmol/L Normal7-20UnTrinity Health System Twin City Medical CenterComment on above:Performed By: #### [id number] #### [facility] ([facility]) [address] [place] [address]Jrqlslg [Mass/Vol]8.6 mg/dLNormal8.6-10.3UnTrinity Health System Twin City Medical CenterComment on above:Performed By: #### [id number] #### [facility] ([facility]) [address] [place] [address]Nsfafizv [Moles/Vol]111 mmol/UQdqd27-592DwoztookqyTrinity Health System Twin City Medical CenterComment on above:Performed By: #### [id number] #### [facility] ([facility]) [address] [place] [address]DG5 [Moles/Vol]21 mmol/JRyqeae14-42BxxpszzpzeTrinity Health System Twin City Medical CenterComment on above:Performed By: #### [id number] #### [facility] ([facility]) [address] [place], [place] [address]Bnyqnnffxd [Mass/Vol]1.57 mg/dLHigh0.70-1.30UnTrinity Health System Twin City Medical CenterComment on above:Performed By: #### [id number] #### [facility] ([facility]) [address] [place] [address]TESGQINKBA FILTRATION RATE ML/MIN/1.73 SQ M.ZWPYSSBNZ99.5 mL/min/1.73m*2Low>60.0UnTrinity Health System Twin City Medical CenterComment on above:Result Comment: [facility]???s estimated glomerular filtration rate (eGFR) will [...] affect anyone group of individuals.Performed By: #### [id number] #### [facility] ([facility]) [address] [place], [place] [address]Ctbmspv [Mass/Vol]102 mg/bNEbrb15-677QvgqrnpunxTrinity Health System Twin City Medical CenterComment on above:Performed By: #### [id number] #### [facility] ([facility]) [address] [place] [place], [place] [address]Xspkblpci [Moles/Vol]4.5 mmol/LNormal3.5-5.1UnTrinity Health System Twin City Medical CenterComment on above:Performed By: #### [id number] #### [facility] ([facility]) [address] [place], [place] [address]Zqewmr [Moles/Vol]140 mmol/VAguoif136-210FrbghtkksyTrinity Health System Twin City Medical CenterComment on above:Performed By: #### [id number] #### [facility] ([facility]) [address] [place], [place] [address]Arxi nitrogen [Mass/Vol]26 mg/dLHigh7-25UnTrinity Health System Twin City Medical CenterComment on above:Performed By: #### [id number] #### [facility] ([facility]) [address], [place] [address]IJQN NITROGEN/CREATININE (MASS RATIO) IN SER/PLAS16.6Normal [facility] HospitalComment on above:Performed By: #### [id number] #### [facility] ([facility]) [address] [place], [place] [address]WYUqu 95-96-3333Tmmlvncqiro distribution width (RBC) [Ratio]15.2 %High11.5-15.0UnTrinity Health System Twin City Medical CenterComment on above:Performed By: #### [id number] #### [facility] ([facility]) [address] [place], [place] [address]LQMBMTUYPOW MEAN CORPUSCULAR HEMOGLOBIN CONCENTRATION (G/DL) BY TXZQABNNR02.9 g/dLLow32.0-35.0UnTrinity Health System Twin City Medical CenterComment on above:Performed By: #### [id number] #### [facility] ([facility]) [address] [place], [place] [address]Vzajurfexn (Bld) [Volume fraction]26.0 %Low39.0-50.0UnTrinity Health System Twin City Medical CenterComment on above:Performed By: #### [id number] #### [facility] ([facility]) [address] [place] [address]Awqfalpbcw (Bld) [Mass/Vol]8.3 g/dLLow13.0-17.0UnTrinity Health System Twin City Medical CenterComment on above:Performed By: #### [id number] #### [facility] ([facility]) [address] [place] [address]HBV (RBC) [Entitic mass]30.6 jxOnhykg19.0-33.0UnTrinity Health System Twin City Medical CenterComment on above:Performed By: #### [id number] #### [facility] ([facility]) [address] [place] [address]GYE (RBC) [Entitic vol]95.9 cHXjsesd97.0-98.0UnTrinity Health System Twin City Medical CenterComment on above:Performed By: #### [id number] #### [facility] ([facility]) [address] [place] [address]TTYFKTLLD (10*3/UL) IN BLOOD AUTOMATED NQHHE359 10*3/uLNormal 150-400UnTrinity Health System Twin City Medical CenterComment on above:Performed By: #### [id number] #### [facility] ([facility]) [address] [place] [address]MDJ (Bld) [#/Vol]2.71 10*6/uLLow4.20-5.70UnTrinity Health System Twin City Medical CenterComment on above:Performed By: #### [id number] #### [facility] ([facility]) [address] [place] [address]OLH (Bld) [#/Vol]4.32 10*3/uLNormal4.00-10.60UnTrinity Health System Twin City Medical CenterComment on above:Performed By: #### [id number] #### [facility] ([facility]) [address] [place] [address]YHsl 55-96-1174WASobbchmas Admitted 06/15/2025 for Cellulitis Discharge Diagnosis Cellulitis [...] 100-62.5-25 mcg blister with device Generic drug: srkgjellesf-bagcfmpov-svevoaid Activity May shower day of wound vac [...] consistent with sk (more content not included)...Normal [facility] HospitalMAGNESIUMon 37-72-0107Hybhmriim [Mass/Vol]1.9 mg/dLNormal1.9-2.7UnTrinity Health System Twin City Medical CenterComment on above:Performed By: #### [id number] ####[facility] ([facility])[address] [place], [place] [address]MJTK GLUCOSE METER UNSOLICITED RESULTSon 96-43-9633Xszeedx [Mass/Vol]128 mg/zEHkcn86-147VgvqwpoxglTrinity Health System Twin City Medical CenterComment on above:Order Comment: Waived Testing in the ED is performed under the ED CLIA certificate #[id number].Result Comment: kqxlspv99Lspzqpofe By: #### [id number] ####[facility] ([facility])[address] [place], [place] [address]yq 22-19-779095Vxagc Case Management Update Multidisciplinary rounds have been [...] discharge disposition appropriate for patient?: Yes New Consults:NormalMemorial Health System [facility] General HospitalBASIC METABOLIC PANELon 52-04-8892Ccftz gap [Moles/Vol]12 mmol/LNormal7-20UnTrinity Health System Twin City Medical CenterComment on above:Performed By: #### [id number] #### [facility] ([facility]) [address] [place], [place] [address]Dkfilew [Mass/Vol]8.1 mg/dLLow8.6-10.3UnTrinity Health System Twin City Medical CenterComment on above:Performed By: #### [id number] #### [facility] [address] [place] [address]Mslcnnnp [Moles/Vol]110 mmol/VWiar44-198CkuotamwjwTrinity Health System Twin City Medical CenterComment on above:Performed By: #### [id number] #### [facility] ([facility]) [address] [place] [address]VY0 [Moles/Vol]21 mmol/IRlkegc29-58FuusvbygemTrinity Health System Twin City Medical CenterComment on above:Performed By: #### [id number] #### [facility] ([facility]) [address] [place] [address]Xrpxqrsmev [Mass/Vol]1.76 mg/dLHigh0.70-1.30UnTrinity Health System Twin City Medical CenterComment on above:Performed By: #### [id number] #### [facility] ([facility]) [address] [place], [place] [address]UGFBGYRXNU FILTRATION RATE ML/MIN/1.73 SQ M.ULJXKWYVH89.6 mL/min/1.73m*2Low>60.0UnTrinity Health System Twin City Medical CenterComment on above:Result Comment: [facility]???s estimated glomerular filtration rate (eGFR) will [...] affect anyone group of individuals.Performed By: #### [id number] #### [facility] ([facility]) [address] [place] [address]Fvephgf [Mass/Vol]153 mg/uXIrfq71-045MzvggraujeTrinity Health System Twin City Medical CenterComment on above:Performed By: #### [id number] #### [facility] ([facility]) [address] [place], [place] [address]Owbqhgfvm [Moles/Vol]4.1 mmol/LNormal3.5-5.1UnTrinity Health System Twin City Medical CenterComment on above:Performed By: #### [id number] #### [facility] ([facility]) [address] [place], [place] [address]Svlite [Moles/Vol]139 mmol/TBlirqb950-391XcjfqdalegTrinity Health System Twin City Medical CenterComment on above:Performed By: #### [id number] #### [facility] ([facility]) [address] [facility] [place], [place] [address]Ejey nitrogen [Mass/Vol]26 mg/dLHigh7-25UnTrinity Health System Twin City Medical CenterComment on above:Performed By: #### [id number] #### [facility] ([facility]) [address] [place], [place] [address]IBOB NITROGEN/CREATININE (MASS RATIO) IN SER/PLAS14.8Normal [facility] HospitalComment on above:Performed By: #### [id number] #### [facility] ([facility]) [address] [place], [place] [address]VWMdf 26-46-4690Nzcztzjihnb distribution width (RBC) [Ratio]15.1 %High11.5-15.0UnTrinity Health System Twin City Medical CenterComment on above:Performed By: #### [id number] #### [facility] ([facility]) [address] [place], [place] [address]GAWEESIPCEZ MEAN CORPUSCULAR HEMOGLOBIN CONCENTRATION (G/DL) BY ZPICLDFIB13.2 g/dLLow32.0-35.0UnTrinity Health System Twin City Medical CenterComment on above:Performed By: #### [id number] #### [facility] ([facility]) [address] [place], [place] [address]Bkcjeupuqz (Bld) [Volume fraction]26.3 %Low39.0-50.0UnTrinity Health System Twin City Medical CenterComment on above:Performed By: #### [id number] #### [facility] ([facility]) [address] [place], [place] [address]Bzluwerxzr (Bld) [Mass/Vol]8.2 g/dLLow13.0-17.0UnTrinity Health System Twin City Medical CenterComment on above:Performed By: #### [id number] #### [facility] ([facility]) [address] [place] [address]KYZ (RBC) [Entitic mass]30.3 iuRfrcgl64.0-33.0UnTrinity Health System Twin City Medical CenterComment on above:Performed By: #### [id number] #### [facility] ([facility]) [address] [place], [place] [address]KRH (RBC) [Entitic vol]97.0 zJYsymiq38.0-98.0UnTrinity Health System Twin City Medical CenterComment on above:Performed By: #### [id number] #### [facility] ([facility]) [address] [place] [address]JECMRFRBD (10*3/UL) IN BLOOD AUTOMATED BGQDE977 10*3/uLNormal 150-400UnTrinity Health System Twin City Medical CenterComment on above:Performed By: #### [id number] #### [facility] ([facility]) [address] [place], [place] [address]NLF (Bld) [#/Vol]2.71 10*6/uLLow4.20-5.70UnTrinity Health System Twin City Medical CenterComment on above:Performed By: #### [id number] #### [facility] ([facility]) [address] [place] [address]PQN (Bld) [#/Vol]3.91 10*3/uLLow4.00-10.60UnTrinity Health System Twin City Medical CenterComment on above:Performed By: #### [id number] #### [facility] ([facility]) [address] [place], [place] [address]VMKNOQAHKwb 25-98-4437Vyhutzfop [Mass/Vol]2.0 mg/dLNormal1.9-2.7 [facility] HospitalComment on above:Performed By: #### [id number] #### [facility] ([facility]) [address] [place], [place] [address]VZQKDVSVZB TIMEDon 83-96-4408DMMTWYATQL IN SER/PLAS - TIMED16.7 Low20.0-40.0UnTrinity Health System Twin City Medical CenterComment on above:Performed By: #### [id number] #### [facility] ,30on 50-08-405334Wwp patient is Moderately Stable - Low risk [...] continued monitoring and treatment until appropriate for discharge.NormalUnTrinity Health System [facility] Center30Daily Case Management Update Multidisciplinary rounds [...] infection Level of Consultation Consultation and Management 06/15/252033NormalUniversUniversity Hospitals Health System30The patient is Moderately Stable - Low risk of patient condition declining or worsening The patient's goals for the shift include rest The clinical goals for the shift include vss comfortNormalUniSamaritan North Health CenterBASIC METABOLIC PANELon 77-43-6734Kehie gap [Moles/Vol]10 mmol/L Normal7-20UnTrinity Health System Twin City Medical CenterComment on above:Performed By: #### [id number] #### [facility] ([facility]) [address] [place], [place] [address]Mtzipwq [Mass/Vol]8.3 mg/dLLow8.6-10.3UnTrinity Health System Twin City Medical CenterComment on above:Performed By: #### [id number] #### [facility] ([facility]) [address] [place] [address]Gcupenle [Moles/Vol]109 mmol/ELalf17-670YauvnsiuudTrinity Health System Twin City Medical CenterComment on above:Performed By: #### [id number] #### [facility] ([facility]) [address] [place] [address]WW7 [Moles/Vol]24 mmol/WBrqgjt57-90BtvxehsmdyTrinity Health System Twin City Medical CenterComment on above:Performed By: #### [id number] #### [facility] ([facility]) [address] [place] [address]Ekrftcgvsr [Mass/Vol]1.70 mg/dLHigh0.70-1.30UnTrinity Health System Twin City Medical CenterComment on above:Performed By: #### [id number] #### [facility] ([facility]) [address] [place] [address]JJXNNYMLUT FILTRATION RATE ML/MIN/1.73 SQ M.FKPEZFHHU04.3 mL/min/1.73m*2Low>60.0UnTrinity Health System Twin City Medical CenterComment on above:Result Comment: [facility]???s estimated glomerular filtration rate (eGFR) will [...] affect anyone group of individuals.Performed By: #### [id number] #### [facility] ([facility]) [address] [place] [address]Stqhdwe [Mass/Vol]92 mg/xELsbvxv79-983CuemwewkahTrinity Health System Twin City Medical CenterComment on above:Performed By: #### [id number] #### [facility] ([facility]) [address] [place], [place] [address]Imtirwjpp [Moles/Vol]4.1 mmol/LNormal3.5-5.1UnTrinity Health System [facility] Medical CenterComment on above:Performed By: #### [id number] #### [facility] ([facility]) [address] [place], [place] [address]Lyidlz [Moles/Vol]139 mmol/UKdaatu007-845CtzpaseovqTrinity Health System Twin City Medical CenterComment on above:Performed By: #### [id number] #### [facility] ([facility]) [address] [place], [place] [address]Zvon nitrogen [Mass/Vol]27 mg/dLHigh7-25UnTrinity Health System Twin City Medical CenterComment on above:Performed By: #### [id number] #### [facility] ([facility]) [address] [place], [place] [address]QBBK NITROGEN/CREATININE (MASS RATIO) IN SER/PLAS15.9Normal [facility] HospitalComment on above:Performed By: #### [id number] #### [facility] ([facility]) [address] [place], [place] [address]BYZzp 75-94-6390Fthzbezxssd distribution width (RBC) [Ratio]15.1 %High11.5-15.0UnTrinity Health System Twin City Medical CenterComment on above:Performed By: #### [id number] #### [facility] ([facility]) [address], [place] [address]BAIDYYQWHCA MEAN CORPUSCULAR HEMOGLOBIN CONCENTRATION (G/DL) BY ZXMBTJOKL05.9 g/dLLow32.0-35.0UnTrinity Health System Twin City Medical CenterComment on above:Performed By: #### [id number] #### [facility] ([facility]) [address] [facility] [place], [place] [address]Repagvkvaa (Bld) [Volume fraction]26.5 %Low39.0-50.0UnTrinity Health System Twin City Medical CenterComment on above:Performed By: #### [id number] #### [facility] ([facility]) [address] [place] [address]Oedideuaja (Bld) [Mass/Vol]8.2 g/dLLow13.0-17.0UnTrinity Health System Twin City Medical CenterComment on above:Performed By: #### [id number] #### [facility] ([facility]) [address] [place] [address]XMO (RBC) [Entitic mass]30.3 euLtejsp02.0-33.0UnTrinity Health System Twin City Medical CenterComment on above:Performed By: #### [id number] #### [facility] ([facility]) [address] [place] [address]TLS (RBC) [Entitic vol]97.8 sRWomyoy97.0-98.0[facility] HospitalComment on above:Performed By: #### [id number] #### [facility] ([facility]) [address] [place], [place] [address]DHRYXMSOX (10*3/UL) IN BLOOD AUTOMATED [id number] 10*3/uLLow 150-400UnTrinity Health System Twin City Medical CenterComment on above:Performed By: #### [id number] #### [facility] ([facility]) [address] [place] [address]UGX (Bld) [#/Vol]2.71 10*6/uLLow4.20-5.70UnTrinity Health System Twin City Medical CenterComment on above:Performed By: #### [id number] #### [facility] ([facility]) [address] [place] [address]TOY (Bld) [#/Vol]3.85 10*3/uLLow4.00-10.60UnTrinity Health System Twin City Medical CenterComment on above:Performed By: #### [id number] #### [facility] ([facility]) [address] [place] [address]XJJNZEDNKeg 84-98-3212Tmzputjob [Mass/Vol]1.9 mg/dLNormal1.9-2.7 [facility] HospitalComment on above:Performed By: #### [id number] ####[facility] ([facility])[address] [place], [place] [address]MENRSYQIUS TIMED on 22-53-4929ZTGLWXXNZH IN SER/PLAS - TIMED8.7Low20.0-40.0UnTrinity Health System Twin City Medical CenterComment on above:Performed By: #### [id number] ####[facility] ([facility])[address] [place], [place] [address]VRCHB METABOLIC PANELon 06-15-2025 Anion gap [Moles/Vol]9 mmol/LNormal7-20UnTrinity Health System [facility] Center Comment on above:Performed By: #### [id number] #### [facility] ([facility]) [address] [place], [place] [address]Wdrsuio [Mass/Vol]8.2 mg/dLLow8.6-10.3UnTrinity Health System Twin City Medical CenterComment on above:Performed By: #### [id number] #### [facility] ([facility]) [address] [place], [place] [address]Pcrikkqq [Moles/Vol]106 mmol/JIshoob05-156GeenefjmgbTrinity Health System Twin City Medical CenterComment on above:Performed By: #### [id number] #### [facility] ([facility]) [address] [place], [place] [address]OD5 [Moles/Vol]24 mmol/MLwxpsf00-41AbxmbxbtofTrinity Health System Twin City Medical CenterComment on above:Performed By: #### [id number] #### [facility] ([facility]) [address] [place], [place] [address]Uhnvqusjel [Mass/Vol]1.99 mg/dLHigh0.70-1.30UnTrinity Health System Twin City Medical CenterComment on above:Performed By: #### [id number] #### [facility] ([facility]) [address] [place], [place] [address]GHMZFOJZXZ FILTRATION RATE ML/MIN/1.73 SQ M.DWZMVHVON17.0 mL/min/1.73m*2Low>60.0UnTrinity Health System Twin City Medical CenterComment on above:Result Comment: The [facility]???s estimated glomerular filtration rate (eGFR) will [...] of individuals.Performed By: #### [id number] #### [facility] ([facility]) [address] [place], [place] [address]Nmdveys [Mass/Vol]121 mg/qOGwlz95-601LkheviupctTrinity Health System Twin City Medical CenterComment on above:Performed By: #### [id number] #### [facility] ([facility]) [address] [place], [place] [address]Pwbevphsm [Moles/Vol]3.9 mmol/LNormal3.5-5.1UnTrinity Health System Twin City Medical CenterComment on above:Performed By: #### [id number] #### [facility] ([facility]) [address] [place], [place] [address]Sunook [Moles/Vol]135 mmol/BFud832-967YfxslldjlkTrinity Health System Twin City Medical CenterComment on above:Performed By: #### [id number] #### [facility] ([facility]) [address] [place], [place] [address]Dtiz nitrogen [Mass/Vol]29 mg/dLHigh7-25UnTrinity Health System Twin City Medical CenterComment on above:Performed By: #### [id number] #### [facility] ([facility]) [address] [place], [place] [address]CPCW NITROGEN/CREATININE (MASS RATIO) IN SER/PLAS14.6Normal [facility] HospitalComment on above:Performed By: #### [id number] #### [facility] ([facility]) [address] [place], [place] [address]FNVXQ CULTUREon 18-98-0141Obdpjkij identified Cx Nom (Bld)No growth at 5 daysNormalUniSamaritan North Health CenterComment on above:Order Comment: Prior to antibiotic administrationPerformed By: #### [id number] ####[facility] ([facility])[address] [place] [address]TSG WITH AUTO DIFFERENTIALon 10-01-9675Phkpypwdo (Bld) [#/Vol]0.03 10*3/uLNormal0.00-0.20 [facility] HospitalComment on above:Performed By: #### [id number] ####[facility] ([facility])[address], [place] [address]Plwouksby/100 WBC (Bld)0.8 %Normal0.0-1.0UnTrinity Health System Twin City Medical CenterComment on above: Performed By: #### [id number] ####[facility] ([facility])[address] RE[facility] H[place]PITALJam[place], [place] [address]Bmpqzpkizox (Bld) [#/Vol]0.16 10*3/uLNormal0.00-0.50 [facility] HospitalComment on above:Performed By: #### [id number] ####[facility] ([facility])[address] [place], [place] [address]Ppzreioewkh/100 WBC (Bld)4.1 %Normal0.0-6.0UnTrinity Health System Twin City Medical CenterComment on above: Performed By: #### [id number] ####[facility] ([facility])[address] [place], [place] [address]Lqoujwctzzu distribution width (RBC) [Ratio]14.9 %Normal 11.5-15.0UnTrinity Health System Twin City Medical CenterComment on above:Performed By: #### [id number] ####[facility] ([facility])[address] [place] [address] ERYTHROCYTE MEAN CORPUSCULAR HEMOGLOBIN CONCENTRATION (G/DL) BY NIRUMUCPH12.7 g/nESpzdxw07.0-35.0UnTrinity Health System Twin City Medical CenterComment on above:Performed By: #### [id number] ####[facility]IZL[address]CA[facility] RE[facility] [place], [place] [address]Cwakosqeyp (Bld) [Volume fraction]26.0 %Low39.0-50.0UnTrinity Health System Twin City Medical CenterComment on above:Performed By: #### [id number] ####[facility] ([facility])[address] [place], [place] [address]Xamghbkhwi (Bld) [Mass/Vol]8.5 g/dLLow 13.0-17.0UnTrinity Health System Twin City Medical CenterComment on above:Performed By: #### [id number] ####[facility] ([facility])[address]L[address] [place], [place] [address]Uvbnfcid granulocytes (Bld) [#/Vol]0.11 10*3/uLNormal0.00-0.20UnTrinity Health System Twin City Medical CenterComment on above:Performed By: #### [id number] ####[facility] ([facility])[address] [facility] [place] [address]Kvrjmcvu granulocytes/100 WBC (Bld)2.8 %High0.0-1.0UnTrinity Health System Twin City Medical CenterComment on above:Performed By: #### [id number] ####[facility] ([facility])[address] [address] Lymphocytes (Bld) [#/Vol]0.68 10*3/uLLow1.20-4.00UnTrinity Health System Twin City Medical CenterComment on above:Performed By: #### [id number] ####[facility] ([facility])[address] [facility] [place] [place] [address]Mfmvxcxsajw/100 WBC (Bld)17.2 %Low 20.0-45.0UnTrinity Health System Twin City Medical CenterComment on above:Performed By: #### [id number] ####[facility] ([facility])[address] [place], [place] [address]GQV (RBC) [Entitic mass]30.7 ghNewhfv82.0-33.0UnTrinity Health [facility] Center Comment on above:Performed By: #### [id number] ####[facility] ([facility])[address] [place] [address]FUM (RBC) [Entitic vol]93.9 bAZaqzor55.0-98.0 [facility] HospitalComment on above:Performed By: #### [id number] ####[facility] ([facility])[address] [place] [address]Daexourbq (Bld) [#/Vol]0.31 10*3/uLNormal0.10-1.00UnTrinity Health System Twin City Medical CenterComment on above:Performed By: #### [id number] ####[facility] ([facility])[address] [place] [address]Yepjpxayd/100 WBC (Bld)7.8 %Normal5.0-12.0UnTrinity Health System Twin City Medical CenterComment on above:Performed By: #### [id number] ####[facility] ([facility])[address] [place] [address]Fxxuanaozsd (Bld) [#/Vol] 2.66 10*3/uLNormal1.60-7.60UnTrinity Health System Twin City Medical CenterComment on above: Performed By: #### [id number] ####[facility] ([facility])[address] [place] [address]Raqrbdenbmb/100 WBC (Bld)67.3 %Glablz20.0-72.0UnTrinity Health System Twin City Medical CenterComment on above:Performed By: #### [id number] ####[facility] ([facility])[address] [place] [address]BIZU (PER 100 WBCS) BY AUTOMATED COUNT0.0 %Csdlrm2LtuckhvzqwTrinity Health System Twin City Medical CenterComment on above: Performed By: #### [id number] ####[facility] ([facility])[address] [place] [address]ODHSUPDXV (10*3/UL) IN BLOOD AUTOMATED DJVUO958 10*3/uLLow 150-400UnTrinity Health System Twin City Medical CenterComment on above:Performed By: #### [id number] ####[facility] ([facility])[address] [place] [address]MZB (Bld) [#/Vol]2.77 10*6/uLLow4.20-5.70UnTrinity Health System Twin City Medical CenterComment on above:Performed By: #### [id number] ####[facility] ([facility])[address] [place] [address]EGI (Bld) [#/Vol]3.95 10*3/uLLow4.00-10.60UnTrinity Health System Twin City Medical CenterComment on above:Performed By: #### [id number] ####[facility] ([facility])[address] [place] [address]LO HEAD WO IV CONTRASTon 14-66-0871KK HEAD WO IV CONTRASTCT HEAD WO IV [...] in this report. Electronically signed: Harsh Andrade MD.NormalUnSt. Rita's Hospital CenterEDNURSon 27-86-0540KWSFMTUilbid surgeon from prior fem-pop. Sent in a picture of wound starting to have puss drainage and redness. Had a fall prior to coming in as well fell onto right side and hit the right shoulder. Denies loc or hitting headNormalUniversity of [facility] EDPROVon 57-21-4680PJREKCRgsaznoqyvMemorial Health System [facility] Marylou LI [facility] [address] EMERGENCY DEPARTMENT ENCOUNTER ED Room: 4172/4172- CHIEF [...] has a past medical history of Cancer (CMS/[facility]), Chronic kidney disease, Coronary artery disease, Dyspnea [...] mouth in the morning and at bedtime. dhbgyrntnwq-jwrtigjgf-kaucokwi (Trelegy Ellipta) 100-62.5-25 mcg blister with device [...] disease, chronic, stage IV (GFR 15-29 ml/min) ([facility]); Essential hypertension; Hyperkalemia traZODone (Desyrel) 100 mg [...] Abdomen is soft. Musculo (more content not included)...NormalHolmes County [facility] [id number] Attestation signed by Italo Lyles MD at 06/20/2025 8:47 PM I discussed the patient with the resident who was admitted the night. There is apparently possible infection or possible dehiscence in the right groin. This will be evaluated in the morning. Patient admitted. Started on IV antibiotics. [facility] Vascular/Endovascular Surgery Medicare Biller Complaint cellulitis History and Present Illness Kel [...] file Physical Activity: Inactive (02/28/2025) Received from [facility] Exercise Vital Sign Days of Exercise per Week: 0 days Minutes of Exercise per Session: 0 min Stress: Stress Concern Present (02/28/2025) Received from [facility] of Occupational Health - Occupational Stress Questionnaire Feeling of Stress : To some extent Social Connections: Socially Isolated (02/28/2025) Received from [facility] Social Connection and Isolation Panel Frequency [...] and atraumatic. Eyes: Extra (more content not included)...NormalUnTrinity Health System Twin City Medical Center LACTIC ACID WITH 4 HOUR REFLEXon 16-61-3477PHCIADV (MMOL/L) IN SER/PLAS0.8 mmol/LNormal0.5-2.2UnTrinity Health System Twin City Medical CenterComment on above:Performed By: #### [id number] #### [facility] ([facility]) [address] [place], [place] [address]MVGTZ CULTUREon 66-36-4695clCEFxqee [Susc]ResistantUnTrinity Health System Twin City Medical CenterComment on above:Order Comment: Cefepime (when cefepime JOSE value is <=2 ug/ml) and meropenem (when cefepime is JOSE >=4 ug/ml and meropenem JOSE value is susceptible) are the preferred therapies for this organism due to moderate-high risk of AmpC beta-lactam production. Fluoroquinolones and trimethoprim-sulfamethoxazole may be considered as alternative intravenous or oral therapy options.Performed By: #### [id number] ####[facility] ([facility])[address] [place], [place] [address]Hwdjwhty [Susc] <=1SusceptibleUnTrinity Health System Twin City Medical CenterComment on above:Order Comment: Cefepime (when cefepime JOSE value is <=2 ug/ml) and meropenem (when cefepime is JOSE >=4 ug/ml and meropenem JOSE value is susceptible) are the preferred therapies for this organism due to moderate-high risk of AmpC beta-lactam production. Fluoroquinolones and trimethoprim-sulfamethoxazole may be considered as alternative intravenous or oral therapy options.Performed By: #### [id number] ####[facility] ([facility])[address] [place], [place] [address]Ucrkdpknccspb [Susc]<=0.25SusceptibleUnTrinity Health System Twin City Medical CenterComment on above:Order Comment: Cefepime (when cefepime JOSE value is <=2 ug/ml) and meropenem (when cefepime is JOSE >=4 ug/ml and meropenem JOSE value is susceptible) are the preferred therapies for this organism due to moderate-high risk of AmpC beta- lactam production. Fluoroquinolones and trimethoprim-sulfamethoxazole may be considered as alternative intravenous or oral therapy options.Performed By: #### [id number] ####[facility] ([facility])[address] [place] [address] levoFLOXacin [Susc]<=0.5SusceptibleUnutah valley hospital Hampton Medical CenterComment on above:Order Comment: Cefepime (when cefepime JOSE value is <=2 ug/ml) and meropenem (when cefepime is JOSE >=4 ug/ml and meropenem JOSE value is susceptible) are the preferred therapies for this organism due to moderate-high risk of AmpC beta-lactam production. Fluoroquinolones and trimethoprim-sulfame thoxazole may be considered as alternative intravenous or oral therapy options. Performed By: #### [id number] ####[facility] ([facility])[address] [place], [place] [address]Wyadwormv [Susc]<=0.5SusceptibleUnTrinity Health System Twin City Medical CenterComment on above:Order Comment: Cefepime (when cefepime JOSE value is <=2 ug/ml) and meropenem (when cefepime is JOSE >=4 ug/ml and meropenem JOSE value is susceptible) are the preferred therapies for this organism due to moderate-high risk of AmpC beta-lactam production. Fluoroquinolones and trimethoprim-sulfame thoxazole may be considered as alternative intravenous or oral therapy options. Performed By: #### [id number] ####[facility] ([facility])[address] [place], [place] [address]Fxnzvlv comment (Unsp spec) [Interp]CEFENormalUniSamaritan North Health CenterComment on above:Order Comment: Cefepime (when cefepime JOSE value is <=2 ug/ml) and meropenem (when cefepime is JOSE >=4 ug/ml and meropenem JOSE value is susceptible) are the preferred therapies for this organism due to moderate-high risk of AmpC beta-lactam production. Fluoroquinolones and trimethoprim-sulfamethoxazole may be considered as alternative intravenous or oral therapy options.Performed By: #### [id number] ####[facility] ([facility])[address] [place], [place] [address]Bcypjemrnwnv+Sulfamethoxazole [Susc] <=0.5/9.5SusceptibleMemorial Health System Selby General HospitalComment on above:Order Comment: Cefepime (when cefepime JOSE value is <=2 ug/ml) and meropenem (when cefepime is JOSE >=4 ug/ml and meropenem JOSE value is susceptible) are the preferred therapies for this organism due to moderate-high risk of AmpC beta- lactam production. Fluoroquinolones and trimethoprim-sulfamethoxazole may be considered as alternative intravenous or oral therapy options.Performed By: #### [id number] ####[facility] ([facility])[address] [place] [address] Follow-Upon 73-57-0097Crgvbw-[id number] JoseKel 1955 M Date Provider Department Center 06/14/2025 [id number]-NBBYMIRAIS ARRINGTON HVCVASENDO [place] HeartVAS Family History Problem Relation Age of Onset Diabetes Mother Family Status - Relation Status Age at Mother Level of Service:67757 [place] POSTOP FOLLOW UP VISIT RELATED TO ORIGINAL PX Reason for Visit and Comments: Post-op Problem [202758]NormalAvita Health System Ontario HospitalPROVon 89-66-2609LIFUHBEguezwt of Present Illness Chief Complaint Patient presents [...] Drug use: Defer Karan Hawkins MD 06/12/25 0231NormalUniversUniversity Hospitals Health SystemCBCon 06-09-2025 Erythrocyte distribution width (RBC) [Ratio]14.3 %Qunywk43.5-15.0UnTrinity Health System Twin City Medical CenterComment on above:Performed By: #### [id number] #### [facility] ,ERYTHROCYTE MEAN CORPUSCULAR HEMOGLOBIN CONCENTRATION (G/DL) BY ABLGALHYX25.0 g/mCRvhuxo31.0-35.0UnTrinity Health System Twin City Medical CenterComment on above:Performed By: #### [id number] #### [facility] ,Hematocrit (Bld) [Volume fraction]31.6 %Low39.0-50.0UnTrinity Health System Twin City Medical CenterComment on above:Performed By: #### [id number] #### [facility] ,Hemoglobin (Bld) [Mass/Vol]10.1 g/dLLow13.0-17.0UnTrinity Health System Twin City Medical CenterComment on above:Performed By: #### [id number] #### [facility] ,MCH (RBC) [Entitic mass]30.4 bpRsbwbq05.0-33.0UnTrinity Health System Twin City Medical CenterComment on above:Performed By: #### [id number] #### [facility] ,MCV (RBC) [Entitic vol]95.2 aKEibsak38.0-98.0UnTrinity Health System Twin City Medical CenterComment on above:Performed By: #### [id number] #### [facility] ,PLATELETS (10*3/UL) IN BLOOD AUTOMATED [id number] 10*3/cLPno208-255QilcgrnvikTrinity Health System Twin City Medical CenterComment on above:Performed By: #### [id number] #### [facility] ,RBC (Bld) [#/Vol]3.32 10*6/uLLow4.20-5.70UnTrinity Health System [facility] Center Comment on above:Performed By: #### [id number] #### [facility] ,WBC (Bld) [#/Vol]8.42 10*3/uLNormal4.00-10.60UnTrinity Health System Twin City Medical CenterComment on above:Performed By: #### [id number] #### [facility] ,DSon 46-62-1617YVHuodiwdfq Provider: Italo Lyles MD Discharge Provider: No [...] 100-62.5-25 mcg blister with device Generic drug: bsvotfvzzni-mrucdghub-yflcxmve ASK your doctor about these medications Instructions Last Dose Given Next Dose Due nitroglycerin 0.4 mg SL tablet Commonly known as: Nitrostat Where to Get Your Medications These medications were sent to [facility] - [place], [place] - [address] [place] [address], [facility] [address] acetaminophen 500 mg tablet rivaroxaban 2.5 mg tablet Activity: activity as tolerated Diet: regular diet Time spent on discharge: >[address] Noa Watson MD for the opportunity to be involved in this patient's care.[facility] HospitalURSNOTDign[facility] 06-09-2025 NURSNOTEPatient Name: Kel Castillo : [...] Babak Garcia RN Rapid Response Team Nurse [phone] 06/09/2025 12:12 [facility] HospitalNURSNOTEPatient Name: Kel Castillo : 1955 Primary [...] nurse, but encouraged to reach out to ELECTROMAGNET CRANE OPERATOR if anything changes over night. Justo Cabrera RN Rapid Response Team Nurse [phone] 06/09/2025 12:47 [facility]30on [id number] patient is Moderately Stable - Low risk [...] - Adult Goal: Maintains hematologic stability Outcome: ProgressingNormalUniSamaritan North Health Center30Problem: Musculoskeletal - Adult Goal: Return mobility to safest level of function Outcome: Progressing Problem: Metabolic/Fluid and Electrolytes - Adult Goal: Electrolytes maintained within normal limits Outcome: Progressing Goal: Hemodynamic stability and optimal renal function maintained Outcome: Progressing Goal: Glucose maintained within prescribed range Outcome: Progressing Problem: Hematologic - Adult Goal: Maintains hematologic stability Outcome: ProgressingNormalUniSamaritan North Health Center30Problem: Activity Intolerance/Impaired Mobility Goal: Mobility/activity is [...] - Adult Goal: Maintains hematologic stability Outcome: ProgressingNormalUniversUniversity Hospitals Health System36on Wildlife Protector spoke with patient's daughter and daughter verbally understood.Normal [facility] HospitalBASIC METABOLIC PANELon 58-83-2856Xnnpo gap [Moles/Vol]12 mmol/LNormal7-20UnTrinity Health System Twin City Medical CenterComment on above:Performed By: #### [id number] ####[facility] ([facility])[address] [place], [place] [address]Rtqqbna [Mass/Vol]9.2 mg/dLNormal8.6-10.3UnTrinity Health System Twin City Medical CenterComment on above:Performed By: #### [id number] ####[facility] ([facility])[address], [place] [address]Twkfshkh [Moles/Vol]105 mmol/LNormal 98-107UnTrinity Health System Twin City Medical CenterComment on above:Performed By: #### [id number] ####[facility] ([facility])[address] [place], [place] [address]WD7 [Moles/Vol]24 mmol/AYdslbc32-57OflqfrawamTrinity Health System Twin City Medical CenterComment on above:Performed By: #### [id number] ####[facility] ([facility])[address] [place], [place] [address]Pfdmcezexw [Mass/Vol]1.78 mg/dLHigh0.70-1.30UnTrinity Health System Twin City Medical CenterComment on above:Performed By: #### [id number] ####[facility] ([facility])[address] [place] [address]ZKUYMPABFH FILTRATION RATE ML/MIN/1.73 SQ M.MRNXUWUUN39.0 mL/min/1.73m*2Low>60.0UnTrinity Health System Twin City Medical CenterComment on above:Result Comment: The [facility]???s estimated glomerular filtration rate (eGFR) will [...] group of individuals.Performed By: #### [id number] ####[facility] ([facility])[address] [place], [place] [address]Cgmhzeg [Mass/Vol]117 mg/nQVavv10-786PinrqnzxcuTrinity Health System Twin City Medical CenterComment on above:Performed By: #### [id number] ####[facility] ([facility])[address] [place] [address]Wvjmspsft [Moles/Vol]4.8 mmol/LNormal3.5-5.1UnTrinity Health System Twin City Medical CenterComment on above:Performed By: #### [id number] ####[facility] ([facility])[address] [place] [address]Pzophy [Moles/Vol]136 mmol/L Azeydb605-712TgcescbrlxTrinity Health System Twin City Medical CenterComment on above:Performed By: #### [id number] ####[facility] ([facility])[address] [place], [place] [address]Hhzc nitrogen [Mass/Vol]23 mg/dLNormal7-25UnTrinity Health System Twin City Medical CenterComment on above:Performed By: #### [id number] ####[facility] ([facility])[address] [place] [address]DFID NITROGEN/CREATININE (MASS RATIO) IN SER/PLAS12.9Normal [facility] HospitalComment on above:Performed By: #### [id number] ####[facility] ([facility])[address] [place] [address]PGOyd 06-08-2025 Erythrocyte distribution width (RBC) [Ratio]14.0 %Onbxog77.5-15.0UnTrinity Health System Twin City Medical CenterComment on above:Performed By: #### [id number] ####[facility] ([facility])[address] [place] [address]UUOSHUSOAPH MEAN CORPUSCULAR HEMOGLOBIN CONCENTRATION (G/DL) BY CXFMDWPCY51.7 g/fEMyyqkc97.0-35.0 [facility] HospitalComment on above:Performed By: #### [id number] ####[facility] ([facility])[address] [place], [place] [address]Biatxxcdbl (Bld) [Volume fraction]27.6 %Low39.0-50.0UnTrinity Health System Twin City Medical CenterComment on above:Performed By: #### [id number] ####[facility] ([facility])[address] [place], [place] [address]Waskqjvpjo (Bld) [Mass/Vol]9.3 g/dLLow13.0-17.0UnTrinity Health System Twin City Medical CenterComment on above:Performed By: #### [id number] ####[facility] ([facility])[address] [place], [place] [address]VGF (RBC) [Entitic mass] 30.3 qePslvrf83.0-33.0UnTrinity Health System Twin City Medical CenterComment on above: Performed By: #### [id number] ####[facility] ([facility])[address] [place] [address]WKG (RBC) [Entitic vol]89.9 zZVgwmlg23.0-98.0UnTrinity Health System Twin City Medical CenterComment on above:Performed By: #### [id number] ####[facility] ([facility])[address] [place] [address]ESCFOKNTB (10*3/UL) IN BLOOD AUTOMATED MCRNA551 10*3/jJNgk743-772PkvifrvzssTrinity Health System [facility] Center Comment on above:Performed By: #### [id number] ####[facility] ([facility])[address] [place] [address]MFD (Bld) [#/Vol]3.07 10*6/uLLow4.20-5.70UnTrinity Health System Twin City Medical CenterComment on above:Performed By: #### [id number] ####[facility] ([facility])[address] [place] [address]LDG (Bld) [#/Vol]9.13 10*3/uLNormal4.00-10.60UnTrinity Health System Twin City Medical CenterComment on above: Performed By: #### [id number] ####[facility] ([facility])[address] [place] [address]MPBGVNMWYgu 21-59-3160Yytrkjtjs [Mass/Vol]2.2 mg/dLNormal 1.9-2.7UnTrinity Health System Twin City Medical CenterComment on above:Performed By: #### [id number] ####[facility] ([facility])[address] [place] [address] PHOSPHORUSon 69-48-7490Hahlbxppi [Mass/Vol]4.8 mg/dLNormal2.5-5.0UnTrinity Health System Twin City Medical CenterComment on above:Performed By: #### [id number] #### [facility] ([facility]) [address] [place] [address]75rd 87-13-281888Xcr patient is Moderately Stable - Low risk of patient condition declining or worsening The patient's goals for the shift include: pain management, comfort The clinical goals for the shift include: hemodynamically stable, pain managementNormalUniversity Clermont County HospitalABG COMPLETE UNSOLICITED RESULTSon 62-20-0183L-AXA7HirknrStxyczuigp [facility]ont County HospitalComment on above:Result Comment: C^IncalculablePerformed By: #### [id number] #### [facility] ,Base excess Calc (Bld) [Moles/Vol]-0.9000 mmol/LNormal-2.0-3.0UnTrinity Health System Twin City Medical CenterComment on above:Performed By: #### [id number] #### [facility] ,CALCIUM IONIZED, ARTERIAL1.49 mmol/LHigh1.13-1.32UnTrinity Health System Twin City Medical CenterComment on above:Performed By: #### [id number] #### [facility] ,CARBOXYHEMOGLOBIN, ARTERIAL2.1 %NormalUnTrinity Health System [facility] City Medical Center Comment on above:Performed By: #### [id number] #### [facility] ,Chloride [Moles/Vol]109 mmol/EBqca76-747YtgtucavcgMemorial Health System [facility] Comment on above:Performed By: #### [id number] #### [facility] ,CO2 (Bld) [Partial pressure]37 mm[Hg]Ukhwxh17-22IfommmbtyeTrinity Health System Twin City Medical CenterComment on above:Performed By: #### [id number] #### [facility] ,DEOXYGENATED HEMOGLOBIN, ARTERIAL2.4 %NormalMemorial Health System [facility] Comment on above:Performed By: #### [id number] #### [facility] ,Glucose [Mass/Vol]137 mg/rDRrrr40-26HzdcpqkzvmMemorial Health System Selby General HospitalComment on above:Performed By: #### [id number] #### [facility] ,HCO3 (Bld) [Moles/Vol]23.5 mmol/AJdtdxp57.0-28.0UnTrinity Health System Twin City Medical CenterComment on above:Performed By: #### [id number] #### [facility] ,Hematocrit (Bld) [Volume fraction]31 %Gpi60-61QbszsriseeMemorial Health System Selby General HospitalComment on above:Performed By: #### [id number] #### [facility] ,Hemoglobin (Bld) [Mass/Vol]10.4 g/dLNormalUniSamaritan North Health Center Comment on above:Performed By: #### [id number] #### [facility] ,LACTATE, ARTERIAL1.10 mmol/LNormal0.36-1.39[facility] Comment on above:Performed By: #### [id number] #### [facility] ,METHEMOGLOBIN, ARTERIAL0.8 %Normal0.0-1.5UnTrinity Health System [facility] Center Comment on above:Performed By: #### [id number] #### [facility] ,Oxygen (Bld) [Partial pressure]76 mm[Hg]Gax44-338XnzkmojnblTrinity Health System Twin City Medical CenterComment on above:Performed By: #### [id number] #### [facility] ,OXYGEN SATURATION (%) IN ARTERIAL BLOOD97.5 %Opikio51.0-100.0[facility] HospitalComment on above:Performed By: #### [id number] #### [facility] ,OXYGENATED HEMOGLOBIN IN ARTERIAL BLOOD94.6 %Xsjaeh49.0-97.0UnTrinity Health System Twin City Medical CenterComment on above:Performed By: #### [id number] #### [facility] ,PAO2/QWD8CkjbinLoqheqzfxj [facility] County HospitalComment on above:Result Comment: C^IncalculablePerformed By: #### [id number] #### [facility] ,PF RATIONormalMemorial Health System Selby General HospitalComment on above:Result Comment: C^IncalculablePerformed By: #### [id number] #### [facility] ,PH OF ARTERIAL BLOOD7.38Wlpdhg4.35-7.45UnTrinity Health System [facility] Center Comment on above:Performed By: #### [id number] #### [facility] ,Potassium [Moles/Vol]4.4 mmol/LNormal3.4-5.2[facility] Comment on above:Performed By: #### [id number] #### [facility] ,Sodium [Moles/Vol]137 mmol/SImgpao788-497MceaizamdaTrinity Health System [facility] Center Comment on above:Performed By: #### [id number] #### [facility] ,FSNQPNSLFAT28.0 ???CNormalMemorial Health System Selby General HospitalComment on above: Performed By: #### [id number] #### [facility] ,BASIC METABOLIC PANELon 69-68-4508Eblcu gap [Moles/Vol]12 mmol/LNormal7-20 [facility] HospitalComment on above:Performed By: #### [id number] ####[facility] ([facility])[address] [place], [place] [address]Wzfrxwb [Mass/Vol]9.3 mg/dLNormal8.6-10.3UnTrinity Health System Twin City Medical CenterComment on above:Performed By: #### [id number] ####[facility] ([facility])[address] [place], [place] [address]Olksgzdu [Moles/Vol]107 mmol/UWvrsrg02-713RuvlwmthdwTrinity Health System Twin City Medical CenterComment on above:Performed By: #### [id number] ####[facility] ([facility])[address] [place], [place] [address]VG5 [Moles/Vol]23 mmol/LNormal 21-31UnTrinity Health System Twin City Medical CenterComment on above:Performed By: #### [id number] ####[facility] ([facility])[address] [place], [place] [address]Abdnzbeutq [Mass/Vol]1.74 mg/dLHigh0.70-1.30UnTrinity Health System Twin City Medical CenterComment on above:Performed By: #### [id number] ####[facility] ([facility])[address] [place], [place] [address]ZMSWOFEZRK FILTRATION RATE ML/MIN/1.73 SQ M.PXLYLAMQS16.1 mL/min/1.73m*2Low>60.0UnTrinity Health System Twin City Medical CenterComment on above:Result Comment: The [facility]???s estimated glomerular filtration rate (eGFR) will [...] group of individuals.Performed By: #### [id number] ####[facility] ([facility])[address] [place] [address]Ojxhzau [Mass/Vol]127 mg/wIEeec53-675QepnlzpaheTrinity Health System Twin City Medical CenterComment on above:Performed By: #### [id number] ####[facility] ([facility])[address] [place], [place] [address]Yludxhddb [Moles/Vol]4.1 mmol/L Normal3.5-5.1UnTrinity Health System Twin City Medical CenterComment on above:Performed By: #### [id number] ####[facility] ([facility])[address] [place] [address] Sodium [Moles/Vol]138 mmol/SPbpnai995-086ZjoeaubhkyTrinity Health System [facility] Center Comment on above:Performed By: #### [id number] ####[facility] ([facility])[address] [place], [place] [address]Qpyv nitrogen [Mass/Vol]23 mg/dLNormal7-25 [facility] HospitalComment on above:Performed By: #### [id number] ####[facility] ([facility])[address] [place], [place] [address]HHNK NITROGEN/CREATININE (MASS RATIO) IN SER/PLAS13.2NormalUnTrinity Health System Twin City Medical CenterComment on above:Performed By: #### [id number] ####[facility] ([facility])[address] [place], [place] [address]WKEdo 21-50-9683Xdemloipdak distribution width (RBC) [Ratio]14.0 %Sztfef54.5-15.0UnTrinity Health System Twin City Medical CenterComment on above:Performed By: #### [id number] #### [facility] ([facility]) [address] [place] [place], [place] [address]UUMMUUCHKHG MEAN CORPUSCULAR HEMOGLOBIN CONCENTRATION (G/DL) BY HWRVRSVXS19.2 g/tFKxodhh09.0-35.0UnTrinity Health System Twin City Medical CenterComment on above:Performed By: #### [id number] #### [facility] ([facility]) [address] [place] [place], [place] [address]Ipslquevac (Bld) [Volume fraction]29.2 %Low39.0-50.0UnTrinity Health System Twin City Medical CenterComment on above:Performed By: #### [id number] #### [facility] ([facility]) [address] [facility] [place] [place], [place] [address]Vsouwqlalg (Bld) [Mass/Vol]9.7 g/dLLow13.0-17.0UnTrinity Health System Twin City Medical CenterComment on above:Performed By: #### [id number] #### [facility] ([facility]) [address] [place], [place] [address]JQUSNGBB PLATELET FRACTION %0.7 %Low0.8-6.3UnTrinity Health System Twin City Medical CenterComment on above:Performed By: #### [id number] #### [facility] ([facility]) [address] [place], [place] [address]SKC (RBC) [Entitic mass]30.4 ntYysiws47.0-33.0UnTrinity Health System Twin City Medical CenterComment on above:Performed By: #### [id number] #### [facility] ([facility]) [address] [place], [place] [address]KFI (RBC) [Entitic vol]91.5 xZTisqhx71.0-98.0UnTrinity Health System Twin City Medical CenterComment on above:Performed By: #### [id number] #### [facility] ([facility]) [address] [place], [place] [address]OCBSBHIOC (10*3/UL) IN BLOOD AUTOMATED [id number] 10*3/uLLow 150-400UnTrinity Health System Twin City Medical CenterComment on above:Performed By: #### [id number] #### [facility] ([facility]) [address] [place] [place], [place] [address]QXD (Bld) [#/Vol]3.19 10*6/uLLow4.20-5.70UnTrinity Health System Twin City Medical CenterComment on above:Performed By: #### [id number] #### [facility] ([facility]) [address] [place], [place] [address]LPG (Bld) [#/Vol]8.07 10*3/uLNormal4.00-10.60UnTrinity Health System Twin City Medical CenterComment on above:Performed By: #### [id number] #### [facility] ([facility]) [address] [place], [place] [address]YPQXELZUF - TISSUE EXAMon [id number] AP CASE REPORTNormal [facility] HospitalComment on above:Order Comment: Pre-op diagnosis: Lower extremity pain, bilateral [M79.604, M79.605] Severe claudication [I73.9] Encounter for pre-operative examination [Z01.818]Result Comment: Surgical Pathology Case: [id number] Authorizing Provider: Italo Lyles MD Collected: 06/07/2025 174 Ordering Location: [facility] Main Operating Room Received: 06/08/2025 0806 Pathologist: Pop Salinas MD Specimen: Groin, Right Common femoral artery , Profunda Artery Plaque and others Performed By: #### [id number] #### [facility] ([facility]) [address] [place], [place] [address]ZWK AP CLINICAL INFORMATIONNormalUniversUniversity Hospitals Health SystemComment on above:Order Comment: Pre-op diagnosis: Lower extremity pain, bilateral [M79.604, M79.605] Severe claudication [I73.9] Encounter for pre-operative examination [Z01.818]Result Comment: Post-Op Diagnoses M79.604, M79.605 - Lower extremity pain, bilateral [ICD-10-CM] I73.9 - Severe claudication [ICD-10-CM] Z01.818 - Encounter for pre-operative examination [ICD-10-CM]Performed By: #### [id number] #### [facility] ([facility]) [address] [facility] [place], [place] [address]DVJ AP GROSS DESCRIPTIONA. Groin.NormalUnTrinity Health System Twin City Medical CenterComment on above:Order Comment: Pre-op diagnosis: [...] cm in diameter with 40-50% luminal narrowing. Food Clerk sections havebeen submitted in one cassette following decalcification. The remainder of the specimen is contained within its formalin container. Rom Iglesias, PGY-2Performed By: #### [id number] #### [facility] (BEAKER) [address] [place], [place] [address]XZL AP MICROSCOPIC DESCRIPTIONMicroscopic examination performed. [facility]itus Medical CenterComment on above:Order Comment: Pre-op diagnosis: Lower extremity pain, bilateral [M79.604, M79.605] Severe claudication [I73.9] Encounter for pre-operative examination [Z01.818]Performed By: #### [id number] #### [facility] [address] [place], [place] [address]PRD AP REPORT FINAL DIAGNOSIS NARRATIVENormalUniSamaritan North Health CenterComment on above:Order Comment: Pre-op diagnosis: Lower extremity pain, bilateral [M79.604, M79.605] Severe claudication [I73.9] Encounter for pre-operative examination [Z01.818]Result Comment: A. Right common femoral artery and profunda artery plaque, endarterectomy: - Calcified atherosclerotic plaque with osteoid metaplasia. at 0824 EDTPerformed By: #### [id number] #### [facility] (BEAKER) [address] [place], [place] [address]JKku 29-54-1780SHAagyjlp Of Present Illness Kel Castillo is a [...] has had an HUBER study done at [facility] on 02/23/25 where right PT was, 0.55. right DP 0.53, right TBI 0.32, left PT 0.6, left DP 0.63, left TBI 0.51. He had a aortogram done by Dr. 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 Patient is taking [...] [facility] [employer] Overall Financial Resource Strain (CARDIA) Difficulty of Paying Living Expenses: Not very hard Food Insecurity: No Food Insecurity (03/10/2025) [facility] Hunger Screening Within the past 12 months we worried whether our food would run out before we got money to buy more.: Never True Within the past 12 months the food we bought just didn't last and we didn't have money to get more.: Never True Transportation Needs: No Transportation Needs (02/28/2025) Received from [facility] PRAPARE - Transportation Lack of Transportation (Medical): No Lack of Transportation (Non-Medical): No Physical Activity: Inactive (02/28/2025) Received from [facility] Exercise Vital Sign Days of Exercise per Week: 0 days Minutes of Exercise per Session: 0 min Stress: Stress Concern Present (02/28/2025) Received from [facility] of Occupational Health - Occupational Stress Questionnaire Feeling of Stress : To some extent Social Connections: Socially Isolated (02/28/2025) Received from [facility] Social Connection and Isolation Panel [NHANES] Frequency of Communication with Friends and Family: More than three times a week Frequency of Social Gatherings with Friends and Family: Once a week Attends Muslim Services: Never Active Member of Clubs or Organizations: No Attends Club or Organization Meetings: Never Marital Status: Intimate Partner Violence: Not At Risk (02/28/2025) Received from [facility] Humiliation, Afraid, Rape, and Kick questionnaire Fear of Current or Ex-Partner: No Emotionally Abused: No Physically Abused: No Sexually Abused: No Housing Stability: Low Risk (02/28/2025) Received from [facility] Housing Stability Vital Sign Unable to [...] (L) 05/31/2025 BCR 18.3 (more content not included)...NormalUnTrinity Health System [facility] MAGNESIUMon 23-40-1797Haqgaiwjt [Mass/Vol]1.5 mg/dLLow1.9-2.7UnTrinity Health System Twin City Medical CenterComment on above:Performed By: #### [id number] ####[facility] (BEAKER)[address] [place], [place] [address]STDVEIOYyn 06-07-2025 NURSNOTEPrior to surgery bilateral posterior tibial and dorsalis pedis pulses assessed with positive pulses detected via doppler @1520 Post surgery bilateral posterior tibial and dorsalis pedis pulses assessed with positive pulses detected via doppler @1815NormalUniversUniversity Hospitals Health SystemOPNOTEon 99-87-5773KXXWRZFqwgi Femoral- Popliteal Bypass with 8mm Propaten Graft above the knee (R), ENDARTERECTOMY, COMMON FEMORAL ARTERY, PROFUNDA , AND (R) Operative Note Date: 06/07/2025 Location: [facility] OR Name: Kel Castillo, : 1955, Diagnosis Pre-op Diagnosis * Lower extremity pain, bilateral [M79.604, M79.605] * Severe claudication [I73.9] * Encounter for pre-operative examination [Z01.818] Post-op Diagnosis * Lower extremity pain, bilateral [M79.604, M79.605] * Severe claudication [I73.9] * Encounter for pre-operative examination [Z01.818] Procedures Right Femoral- Popliteal Bypass with 8mm Propaten Graft above the knee [address] - [place] BYPASS W/VEIN FEMORAL-POPLITEAL ENDARTERECTOMY, COMMON FEMORAL ARTERY, [...] - TISSUE EXAM Italo Lyles MD 06/07/25 4166 Description: Right Common femoral artery , Profunda Artery Plaque and others Implants Type Name Action Serial No. Collagen GRAFT,THIN-WALL,8X80CM,70CM - [id number] - [id number] Implanted [id number] Staff: Lead Operator: Carlos Rivera RN Relief Lead Operator: Michelle Snow RN Relief Scrub: Brina Sanchez CST Scrub Person: Mariana Peralta CST; Ana Irizarry Asp Net Developer: Maria Ines Gimlore RN Orientee Lead Operator: Becca Maldonado RN Indications: Kel Castillo is [...] was identified, vessels loops were placed around LINSEED OIL TEMPERER, SFA and PFA, heparin was administered and LINSEED OIL TEMPERER was clamped higher just below inguinal ligament were the artery was soft and free of plaque. Distal LINSEED OIL TEMPERER was then opened up with 11 blade scalpel in longitudinal fashion and arteriotomy was extended caudally with potz scissors to the level of the bifurcation. Extensive amount of plaque was noted in this area, endarterectomy of LINSEED OIL TEMPERER, profunda and ostium of SFA was performed. [...] hemodynamically stable. Condition: stable Omer Nathan MDNormalUniversity Clermont County HospitalPHOSPHORUS on 02-73-6633Chupcnovm [Mass/Vol]4.1 mg/dLNormal2.5-5.0UnTrinity Health System Twin City Medical CenterComment on above:Performed By: #### [id number] #### [facility] ([facility]) [address] [place], [place] [address]EMRM ACTIVATED CLOTTING TIME UNSOLICITED RESULTSon 58-24-6556KSY ACTIVATED CLOTTING HNAU665 eavVxvz14-445YxnqhdwylsTrinity Health System Twin City Medical Center Comment on above:Performed By: #### [id number] #### [facility] (BEAKER) [address] [place], [place] [address]TWEG GLUCOSE METER UNSOLICITED RESULTSon 39-96-4095Dziwtit [Mass/Vol]87 mg/nMOdrdqp27-350AgcitdcyinTrinity Health System Twin City Medical CenterComment on above:Order Comment: Pre-op diagnosis: Lower extremity pain, bilateral [M79.604, M79.605] Severe claudication [I73.9] Encounter for pre-operative examination [Z01.818]Result Comment: acastil5 Performed By: #### [id number] #### [facility] ([facility]AKER) [address] [place], [place] [address]xo 22-38-934469Digvpuugw, daughter needs to know if patient is cleared for surgery by Dr. WestUnTrinity Health System Twin City Medical CenterBASIC METABOLIC PANELon 46-39-4603Rscin gap [Moles/Vol]12 mmol/LNormal7-20UnTrinity Health System Twin City Medical CenterComment on above:Performed By: #### [id number] #### [facility]OD [facility] ,Calcium [Mass/Vol]8.9 mg/dLNormal8.6-10.3UnTrinity Health System [facility] Center Comment on above:Performed By: #### [id number] #### [facility] ,Chloride [Moles/Vol]108 mmol/WQhnw37-892JbucunylqmTrinity Health System [facility] Center Comment on above:Performed By: #### [id number] #### [facility] ,CO2 [Moles/Vol]25 mmol/UWkjcsf35-91XeuwvgqevrTrinity Health System Twin City Medical CenterComment on above:Performed By: #### [id number] #### [facility] ,Creatinine [Mass/Vol]1.97 mg/dLHigh0.70-1.30UnTrinity Health System [facility] Center Comment on above:Performed By: #### [id number] #### [facility] ,GLOMERULAR FILTRATION RATE ML/MIN/1.73 SQ M.QGSBBOSAU44.4 mL/min/1.73m*2Low >60.0UnTrinity Health System Twin City Medical CenterComment on above:Result Comment: The [facility]???s estimated glomerular filtration rate (eG FR) will [...] anyone group of individuals. Performed By: #### [id number] #### [facility] ,Glucose [Mass/Vol]99 mg/yGAukuoc44-098JebniiuxcjMemorial Health System [facility] Comment on above:Performed By: #### [id number] #### [facility] ,Potassium [Moles/Vol]5.1 mmol/LNormal3.5-5.1UnTrinity Health [facility] Comment on above:Performed By: #### [id number] #### [facility] ,Sodium [Moles/Vol]140 mmol/UBzbgpn189-303WatfxddjspTrinity Health System [facility] Center Comment on above:Performed By: #### [id number] #### [facility] ,Urea nitrogen [Mass/Vol]36 mg/dLHigh7-25[facility] Comment on above:Performed By: #### [id number] #### [facility]OD [facility] ,UREA NITROGEN/CREATININE (MASS RATIO) IN SER/PLAS18.3NormalUniSamaritan North Health CenterComment on above:Performed By: #### [id number] #### [facility] ,Labon [id number] JoseKel 1955 M Date Provider Department [place] 05/31/2025 2245-[facility] OPD LAB RESOURCE [facility] C Family History Problem Relation Age of Onset Diabetes Mother Family Status - Relation Status Age at MotherNoalUniSamaritan North Health CenterBASIC METABOLIC PANELon 03-55-1065Gsgag gap [Moles/Vol]12 mmol/LNormal7-20UnTrinity Health System Twin City Medical CenterComment on above:Performed By: #### [id number] ####[facility] (BEAKER)[address] [place], [place] [address]Fcloshx [Mass/Vol]9.5 mg/dLNormal 8.6-10.3UnTrinity Health System Twin City Medical CenterComment on above:Performed By: #### [id number] ####[facility] ([facility])[address] [place] [address]Cvmmzrxa [Moles/Vol]100 mmol/LXnsxgm49-317XmjejlktmbTrinity Health System Twin City Medical CenterComment on above:Performed By: #### [id number] ####[facility] ([facility])[address] [place], [place] [address]LW1 [Moles/Vol]26 mmol/MMbkxvo01-57XgmkxbbfplTrinity Health System Twin City Medical CenterComment on above:Performed By: #### [id number] ####[facility] ([facility])[address] [place], [place] [address]Vbyqjwxxyc [Mass/Vol]1.92 mg/dLHigh 0.70-1.30UnTrinity Health System Twin City Medical CenterComment on above:Performed By: #### [id number] ####[facility] ([facility])[address] [place], [place] [address]ENYYDZORDJ FILTRATION RATE ML/MIN/1.73 SQ M.AMOOGFOBQ03.6 mL/min/1.73m*2Low>60.0UnTrinity Health System Twin City Medical CenterComment on above:Result Comment: The [facility]???s estimated glomerular filtration rate (eGFR) will [...] of individuals. Performed By: #### [id number] ####[facility] ([facility])[address] [place], [place] [address]Ydiadrp [Mass/Vol]81 mg/xXJxuarr45-829YzizsxirlkTrinity Health System Twin City Medical CenterComment on above:Performed By: #### [id number] ####[facility] ([facility])[address] [place], [place] [address]Lbiuabroe [Moles/Vol]5.7 mmol/LHigh 3.5-5.1UnTrinity Health System Twin City Medical CenterComment on above:Performed By: #### [id number] ####[facility] ([facility])[address] [place] [address]Acchbr [Moles/Vol]132 mmol/SKaj149-268MnzajojdwiTrinity Health System Twin City Medical CenterComment on above:Performed By: #### [id number] ####[facility] ([facility])[address] [place] [address]Ugii nitrogen [Mass/Vol]26 mg/dLHigh7-25UnTrinity Health System Twin City Medical CenterComment on above:Performed By: #### [id number] ####[facility] ([facility])[address] [place] [address]MGSB NITROGEN/CREATININE (MASS RATIO) IN SER/PLAS13.5NormalUniversUniversity Hospitals Health SystemComment on above: Performed By: #### [id number] ####[facility] ([facility])[address] [place] [address]KPTub 07-33-7802Ahdezevzhpe distribution width (RBC) [Ratio]14.5 % Mwcubq96.5-15.0UnTrinity Health System Twin City Medical CenterComment on above:Performed By: #### [id number] #### [facility] ([facility]) [address] [place] [address]NOCZIIUMOCB MEAN CORPUSCULAR HEMOGLOBIN CONCENTRATION (G/DL) BY MYQWGZUQT84.1 g/iFGkwqgp30.0-35.0UnTrinity Health System Twin City Medical CenterComment on above:Performed By: #### [id number] #### [facility] ([facility]) [address] [place] [address]Sdcbmigopb (Bld) [Volume fraction]36.6 %Low39.0-50.0UnTrinity Health System Twin City Medical CenterComment on above:Performed By: #### [id number] #### [facility] ([facility]) [address] [place] [address]Jxdcemdakv (Bld) [Mass/Vol]12.1 g/dLLow13.0-17.0UnTrinity Health System Twin City Medical CenterComment on above:Performed By: #### [id number] #### [facility] ([facility]) [address] [place] [address]VDVHYGQD PLATELET FRACTION %0.9 %Normal0.8-6.3UnTrinity Health System Twin City Medical CenterComment on above:Performed By: #### [id number] #### [facility] ([facility]) [address] [place] [address]OYN (RBC) [Entitic mass]30.6 zeKgwqvl75.0-33.0UnTrinity Health System Twin City Medical CenterComment on above:Performed By: #### [id number] #### [facility] ([facility]) [address] [place] [address]JOH (RBC) [Entitic vol]92.4 pHJygytp76.0-98.0UnTrinity Health System Twin City Medical CenterComment on above:Performed By: #### [id number] #### [facility] ([facility]) [address] [place], [place] [address]XNODBZZDM (10*3/UL) IN BLOOD AUTOMATED [id number] 10*3/uLLow 150-400UnTrinity Health System Twin City Medical CenterComment on above:Performed By: #### [id number] #### [facility] ([facility]) [address] [place] [address]MTI (Bld) [#/Vol]3.96 10*6/uLLow4.20-5.70UnTrinity Health System Twin City Medical CenterComment on above:Performed By: #### [id number] #### [facility] ([facility]) [address] [place] [address]DVW (Bld) [#/Vol]7.48 10*3/uLNormal4.00-10.60UnTrinity Health System Twin City Medical CenterComment on above:Performed By: #### [id number] #### [facility] ([facility]) [address] [place] [address]Nqruu [id number] Kel Castillo 1955 M Date Provider Department Center 05/26/2025 2245-[facility] LAB RESOURCE [facility] OPD [facility] Family History Problem Relation Age of Onset Diabetes Mother Family Status - Relation Status Age at MotherNormalUniversUniversity Hospitals Health SystemMAGNESIUMon 62-91-5379Crbpcrekn [Mass/Vol]1.8 mg/dLLow1.9-2.7UnTrinity Health System Twin City Medical CenterComment on above:Performed By: #### [id number] ####[facility] ([facility])[address] [place], [place] [address]SANVHZSERRQI, URINE, RANDOMon 98-24-7246Ljbpkbv DL <= 20 mg/L (U) [Mass/Vol]mg/dLNormalUniSamaritan North Health CenterComment on above: Performed By: #### [id number] #### [facility] ([facility]) [address] [place], [place] [address]Wqexeygrpt (U) [Mass/Vol]24.0 mg/iUAen42-259EmyttzdebyTrinity Health System Twin City Medical CenterComment on above:Performed By: #### [id number] #### [facility] ([facility]) [address] [place], [place] [address]WVORJOTMCIGQ/CREATININE (MG/G) IN URINENormalUniSamaritan North Health CenterComment on above:Result Comment: Unable to calculate Performed By: #### [id number] #### [facility] ([facility]) [address] [facility] [place], [place] [address]Yjgbbq Visiton 99-40-9289Ogybby-up [id number] Kel Castillo 1955 M Date Provider Department Center 05/26/2025 207-DEBBIE MIRANDA [facility] NEPH [facility] Family History Problem Relation Age of Onset Diabetes Mother Family Status - Relation Status Age at Mother Level of Service:25130 IA OFFICE/OUTPATIENT NEW HIGH MDM 60 MINUTES Reason for Visit and Comments: Chronic Kidney Disease [176] - New patientNormalUniversity Clermont County HospitalPHOSPHORUSon 69-84-7403Lqhiesfed [Mass/Vol]3.8 mg/dLNormal2.5-5.0 [facility] HospitalComment on above:Performed By: #### [id number] ####[facility] ([facility])[address] [place], [place] [address]JOL, INTACTon 95-55-8038BVCWTXSDUV INTACT (PG/ML) IN SER/PLAS39 pg/hHPbodrt23-65QbqpskmvviTrinity Health System Twin City Medical CenterComment on above:Performed By: #### [id number] #### [facility] ,URINALYSIS WITH MICROSCOPICon 21-99-3090BQPICEFAD, TOTAL PRESENCE IN URINE NegativeNormalNegativeUnTrinity Health System Twin City Medical CenterComment on above: Performed By: #### [id number] ####[facility] ([facility])[address] [place], [place] [address]Kzftgxa (U)ClearNormalClearUnTrinity Health System Twin City Medical CenterComment on above:Performed By: #### [id number] ####[facility] ([facility])[address] [place], [place] [address]Vxhgq (U)Light-YellowNormalColorless, Yellow, Light-YellowUnTrinity Health System Twin City Medical CenterComment on above: Performed By: #### [id number] ####[facility] ([facility])[address] [place], [place] [address]SSZJVFU (MG/DL) IN URINENormalNormalNormalUniversUniversity Hospitals Health SystemComment on above:Performed By: #### [id number] ####[facility] ([facility])[address] [place], [place] [address]CVQGAKMDYF PRESENCE IN URINENegativeNormalNegativeUnTrinity Health System Twin City Medical CenterComment on above: Performed By: #### [id number] ####[facility] ([facility])[address] [place], [place] [address]Nyuxfwp Ql (U)NegativeNormalNegativeUnTrinity Health System Twin City Medical CenterComment on above:Performed By: #### [id number] ####[facility] ([facility])[address] [place], [place] [address]NFMTUHDCG ESTERASE PRESENCE IN URINE BY TEST STRIPNegativeNormalNegativeUnTrinity Health System Twin City Medical CenterComment on above:Performed By: #### [id number] ####[facility] ([facility])[address] [place], [place] [address]GXCSBJA PRESENCE IN URINENegativeNormalNegativeUnTrinity Health System Twin City Medical CenterComment on above:Performed By: #### [id number] ####[facility] ([facility])[address] [place], [place] [address]aG (U)5.5 [pH]Normal 5.0-8.0UnTrinity Health System Twin City Medical CenterComment on above:Performed By: #### [id number] ####[facility] ([facility])[address] [place], [place] [address]Ijdoeqp (U) [Mass/Vol]NegativeNormalNegativeUnTrinity Health System Twin City Medical CenterComment on above:Performed By: #### [id number] ####[facility] ([facility])[address] [place], [place] [address]EPN (#/HPF) IN URINE SEDIMENTNone SeenNormalNone Seen, 0-2 [facility] HospitalComment on above:Performed By: #### [id number] ####[facility] ([facility])[address] [place], [place] [address]Brrxbwwl gravity (U) [Rel density]1.791Hkb7.010-1.030UnTrinity Health System Twin City Medical CenterComment on above:Performed By: #### [id number] ####[facility] ([facility])[address] [place], [place] [address]OQZJVBMI EPITHELIAL CELLS (#/LPF) IN URINE SEDIMENTOccasional NormalNone Seen, Occasional, FewUnTrinity Health System Twin City Medical CenterComment on above:Performed By: #### [id number] ####[facility] ([facility])[address] [place], [place] [address]NMLJJTDDVTCP (MG/DL) IN URINENormalNormalNormalUniversUniversity Hospitals Health SystemComment on above:Performed By: #### [id number] ####[facility] ([facility])[address] [place], [place] [address]FKY (LEUKOCYTE) (#/HPF) IN URINE SEDIMENTNone SeenNormalNone Seen, 0-2UnTrinity Health System Twin City Medical CenterComment on above:Performed By: #### [id number] ####[facility] ([facility])[address] [place], [place] [address]DQKCVEQ D 25 HYDROXYon 05-26-2025 CALCIDIOL (25 [place] VITAMIN D3) (NG/ML) IN SER/PLAS39.0 ng/hCHeicub64.0-80.0 [facility] HospitalComment on above:Result Comment: >80.0 Toxicity possiblePerformed By: #### [id number] #### [facility] ([facility]) [address] [facility] [place], [place] [address]vj 50-78-231001Rctkmyns daughter Nini called, notified of patient abnormal labs including K 5.5, BUN 30 and creatinine 2.24. Patient has appointment with [facility] nephrology tomorrow (05/26). Instructed to increase hydration and reduce potassium dietary. Also, advised if patient develops chest pain, palpitations, SOB, decreased urine output, or altered mental status; he is to seek medical attention immediately. Nini verbalized understanding of plan. Patient will need to replete labs prior to procedure.NormalUnTrinity Health System Twin City Medical CenterTelephoneon [id number] Kel Castillo 1955 M Date Provider Department Center 05/25/2025 25[address]-FVCORSPENCER GILMAN [facility] [place] Medical C Family History Problem Relation Age of Onset Diabetes Mother Family Status - Relation Status Age at MotherNormalUniMercy Health Tiffin Hospital 97-12-9158RSIAAFUIT PARTIAL THROMBOPLASTIN TIME IN PPP BY COAGULATION ASSAY27.5 SecondsNormal 25.0-35.0UnTrinity Health System Twin City Medical CenterComment on above:Result Comment: Clinical significance of the APTT is questionable in the presence of heparin. Performed By: #### [id number] ####[facility] (BEAKER)[address] [place], [place] [address]YYOEW METABOLIC PANELon 94-47-9828Getab gap [Moles/Vol]12 mmol/LNormal7-20UnTrinity Health System [facility] City Medical CenterComment on above:Performed By: #### [id number] ####[facility] ([facility])[address] [place] [address] Calcium [Mass/Vol]8.8 mg/dLNormal8.6-10.3UnTr[facility] Health [facility] Comment on above:Performed By: #### [id number] ####[facility] ([facility])[address] [place], [place] [address]Qkpkyehq [Moles/Vol]105 mmol/YQfgmjb21-123 [facility] HospitalComment on above:Performed By: #### [id number] ####[facility] ([facility])[address] [place], [place] [address]YW2 [Moles/Vol] 25 mmol/REldmzn00-01XvzombcbbyTrinity Health System Twin City Medical CenterComment on above: Performed By: #### [id number] ####[facility] ([facility])[address] [place], [place] [address]Crnpkanxdg [Mass/Vol]2.24 mg/dLHigh0.70-1.30UnTrinity Health System [facility] City Medical CenterComment on above:Performed By: #### [id number] ####[facility] ([facility])[address] [place], [place] [address]GUVDFRYTTT FILTRATION RATE ML/MIN/1.73 SQ M.ZREGTGETA81.4 mL/min/1.73m*2Low>60.0UnTrinity Health System [facility] Comment on above:Result Comment: [facility]???s estimated glomerular filtration rate (eGFR) will [...] group of individuals.Performed By: #### [id number] ####[facility] ([facility])[address] [place] [address]Gvzdzku [Mass/Vol]81 mg/fFEevyrt88-462VqrhslrxcuTrinity Health System Twin City Medical CenterComment on above:Performed By: #### [id number] ####[facility] ([facility])[address] [place] [address]Tbmsaddzk [Moles/Vol]5.5 mmol/LHigh3.5-5.1UnTrinity Health System [facility] Medical CenterComment on above:Performed By: #### [id number] ####[facility] ([facility])[address] [place] [address]Boyfjk [Moles/Vol]136 mmol/L Jbixyk479-311CxkhffbazsTrinity Health System Twin City Medical CenterComment on above:Performed By: #### [id number] ####[facility] ([facility])[address] [place], [place] [address]Iptg nitrogen [Mass/Vol]30 mg/dLHigh7-25UnTrinity Health System [facility] Medical CenterComment on above:Performed By: #### [id number] ####[facility] ([facility])[address] [place] [address]WNGS NITROGEN/CREATININE (MASS RATIO) IN SER/PLAS13.4Normal [facility] HospitalComment on above:Performed By: #### [id number] ####[facility] ([facility])[address] [place] [address]BGRxq 05-24-2025 Erythrocyte distribution width (RBC) [Ratio]14.5 %Rjbzew27.5-15.0UnTrinity Health System Twin City Medical CenterComment on above:Performed By: #### [id number] ####[facility] ([facility])[address] [place] [address]GMPFABAOLML MEAN CORPUSCULAR HEMOGLOBIN CONCENTRATION (G/DL) BY NMHIQNNWN03.5 g/dLLow32.0-35.0 [facility] HospitalComment on above:Performed By: #### [id number] ####[facility] ([facility])[address] [place] [address]Prjmbamqmp (Bld) [Volume fraction]36.8 %Low39.0-50.0UnTrinity Health System Twin City Medical CenterComment on above:Performed By: #### [id number] ####[facility] ([facility])[address] [place] [address]Gafsbetgcg (Bld) [Mass/Vol]11.6 g/dLLow13.0-17.0UnTrinity Health System [facility] City Medical CenterComment on above:Performed By: #### [id number] ####[facility] ([facility])[address] [place] [address]HZH (RBC) [Entitic mass] 30.3 boJghthc04.0-33.0UnTrinity Health System Twin City Medical CenterComment on above: Performed By: #### [id number] ####[facility] ([facility])[address] [place] [address]FKH (RBC) [Entitic vol]96.1 zTNfoqzc75.0-98.0UnTrinity Health System [facility] City Medical CenterComment on above:Performed By: #### [id number] ####[facility] ([facility])[address] [place] [address]IPZBUGLHL (10*3/UL) IN BLOOD AUTOMATED [id number] 10*3/cMJlu277-761WhhglyliciTrinity Health System [facility] Center Comment on above:Performed By: #### [id number] ####[facility] ([facility])[address] [place] [address]BHZ (Bld) [#/Vol]3.83 10*6/uLLow4.20-5.70UnTrinity Health System Twin City Medical CenterComment on above:Performed By: #### [id number] ####[facility] ([facility])[address] [place] [address]FET (Bld) [#/Vol]5.58 10*3/uLNormal4.00-10.60UnTrinity Health System Twin City Medical CenterComment on above: Performed By: #### [id number] ####[facility] ADAN)[address] [place], [place] [address]WAig 50-27-0592RGQkx-Anesthesia Clinic Service Date: 05/24/25 Chief Complaint: PAC [...] well as calcified plaque of the right LINSEED OIL TEMPERER, infrarenal aorta, bilateral iliacs. Initial plans for an noninvasive abdominal aortography and bilateral lower extremity angiogram was made due to progressive lower extremity pain/symptoms. However, the procedure was subsequently canceled due to patients elevated serum creatinine level of 2.18. Patient's daughter states, patient follows with Network Architect Dr. Toscano at [facility]; however does have appointment with [facility] nephrology on 05/1525 for a second opinion. [...] Cardiac cath on 05/11/2025 revealed severe three-vessel chickaloon CAD. There are 2 out of 3 [...] Last Dose Status albuterol 90 mcg/actuation inhaler [id number] Yes INHALE 1 PUFF BY MOUTH EVERY 4 HOURS NEEDED Ele ProviderMD 05/24/2025 Active amLODIPine (Norvasc) 5 mg tablet [id number] Yes Take 1 tablet by mouth two times daily. Historical ProviderMD 05/24/2025 Active aspirin 81 mg EC tablet [id number] Yes Take 1 tablet by mouth in the morning. Historical ProviderMD 05/24/2025 Active atorvastatin (Lipitor) 80 mg tablet [id number] Yes Take 80 mg by mouth at bedtime. Ele ProviderMD 05/24/2025 Active buPROPion XL (Wellbutrin XL) 300 mg 24 hr tablet [id number] Yes Use 1 tablet in the mouth or throat in the morning. Ele ProviderMD 05/24/2025 Active busPIRone (Buspar) 15 mg tablet [id number] Yes Take 1 tablet by mouth in the morning and at bedtime. Ele ProviderMD 05/24/2025 Active clopidogrel (Plavix) 75 mg tablet [id number] Yes Take 75 mg by mouth in the morning. Ele ProviderMD 05/24/2025 Active famotidine (Pepcid) 20 mg tablet [id number] Yes Take 20 mg by mouth twice a day. Ele ProviderMD 05/24/2025 Active fenofibrate micronized (Antara) 43 mg capsule [id number] Yes Take 1 capsule by mouth in the morning and at bedtime. Historical ProviderMD 05/24/2025 Active ferrous sulfate 325 (65 Fe) MG tablet [id number] No Take 325 mg by mouth in the morning. Patient not taking: Reported on 05/24/2025 Historical Provider, Not Taking Active mligkiqtzpy-kitjtsjif-drgqyxdw (Trelegy Ellipta) 100-62.5-25 mcg blister with device [id number] Yes Inhale 1 puff in the morning. Historical Provider, 05/24/2025 Active lisinopril 10 mg tablet [id number] Yes Take 10 mg by mouth in the morning. Historical Provider, 05/24/2025 Active metoprolol tartrate (Lopressor) 50 mg tablet [id number] Yes Take 50 mg by mouth two times daily. Historical Provider, 05/24/2025 Active nitroglycerin (Nitrostat) 0.4 mg SL tablet [id number] Yes Historica (more content not included)...NormalUnTrinity Health System Twin City Medical CenterLabon 57-00-2330Jqf [id number] Kel Castillo 1955 M Date Provider Department Center 05/24/2025 2244-[facility] MP LAB RESOURCE MP DRAW Medical Pavi Family History Problem Relation Age of Onset Diabetes Mother Family Status - Relation Status Age at MotherNormalUniversUniversity Hospitals Health SystemMRSA/MSSA DNA NASALon 05-24-2025 MRSA DNANegativeNormalNegativeUnTrinity Health System Twin City Medical CenterComment on above:Order Comment: Testing methodology [...] does not preclude nasal colonization.Performed By: #### [id number] ####[facility] ([place])[address] [place], [place] [address]UGWM DNANegativeNormalNegativeUnTrinity Health System Twin City Medical CenterComment on above:Order Comment: Testing methodology [...] does not preclude nasal colonization.Performed By: #### [id number] ####[facility] ([place])[address] [place], [place] [address]KLVMGDD-MHIzw 90-61-7090KOX IN PPP BY COAGULATION ASSAY1.01Csujuj5.90-1.10 [facility] General HospitalComment on above:Result Comment: ACCCP RECOMMENDED INR FOR [...] OPTIMAL THERAPEUTIC RANGE. CHEST 1995;108:231S-246S.Performed By: #### [id number] #### [facility] ([place]) [address] [place], [place] [address]NWLCFFMXCIY TIME (PT) IN PPP BY COAGULATION ASSAY13.3 Seconds Shgeku72.3-14.8UnTrinity Health System Twin City Medical CenterComment on above:Performed By: #### [id number] #### [facility] ([place]) [address] [place], [place] [address]Gza-Dgrdraoia Testingon 11-54-0565Eqh-Admission [id number] Kel Castillo 1955 Date Provider Department [place] 05/24/202540793-FGV-WPARZUVQKD CLINI*[facility] [place] Medical C Family History Problem Relation Age of Onset Diabetes Mother Family Status - Relation Status Age at MotherNormalUniversity of Texas Children'S Hospital The WoodlandsTYPE AND SCREENon 89-40-9908ZJ SCREENNegativeNormalUniversUniversity Hospitals Health SystemComment on above: Performed By: #### [id number] #### [facility] BLOOD BANK ,ABO group Nom (Bld)BNormalMemorial Health System Selby General HospitalComment on above: Performed By: #### [id number] #### [facility] BLOOD BANK ,RH TYPE IN BLOODPositiveNormalUniversUniversity Hospitals Health SystemComment on above:Performed By: #### [id number] #### [facility] BLOOD BANK ,Telephoneon [id number] Kel Castillo 1955 M Date Provider Department Center 05/17/2025 DEBBIE RICH [facility] NEPH [facility] Family History Problem Relation Age of Onset Diabetes Mother Family Status - Relation Status Age at MotherNormalUniversity of Texas Children'S Hospital The WoodlandsAbstracton 60-53-7716Ywwhsdwn [id number] Kel Castillo 1955 M Date Provider Department Center 05/14/2025 ITALO ROMERO [facility] AUTH [facility] C Family History Problem Relation Age of Onset Diabetes Mother Family Status - Relation Status Age at MotherNormalUniversity of Texas Children'S Hospital The WoodlandsANESon 31-01-0785KLOA Attestation signed by Sarah Tolliver MD at 05/11/2025 8:18 AM Sarah Tolliver MD, MPH, FACC, [facility] Interventional Cardiology Pager Email: [email or web address] Patient: Kel Castillo Procedure Information Date/Time: 05/11/25 1030 Procedure: Coronary angiography (Left) - call daughter glenda [phone] with instructions Location: [facility] DISPUTE COORDINATOR 3 / [facility] VASCULAR LAB (Cath) Providers: Sarah [...] attending and fellow. Additional Equipment RequestsNormalUniversity of Texas Children'S Hospital The WoodlandsHPon 06-96-2314JE Attestation signed by Sarah Tolliver MD at [...] Additional Comments: Sarah Tolliver MD, MPH, [facility], [facility], [facility] Interventional Cardiology Pager Email: [email or web address] History Of Present Illness Kel Castillo [...] Resource Strain: Low Risk (02/28/2025) Received from [facility] Overall Financial Resource Strain (CARDIA) Difficulty of Paying Living Expenses: Not very hard Food Insecurity: No Food Insecurity (03/10/2025) [facility] Hunger Screening Within the past 12 months we worried whether our food would run out before we got money to buy more.: Never True Within the past 12 months the food we bought just didn't last and we didn't have money to get more.: Never True Transportation Needs: No Transportation Needs (02/28/2025) Received from [facility] PRAPARE - Transportation Lack of Transportation (Medical): No Lack of Transportation (Non-Medical): No Physical Activity: Inactive (02/28/2025) Received from [facility] Exercise Vital Sign Days of Exercise per Week: 0 days Minutes of Exercise per Session: 0 min Stress: Stress Concern Present (02/28/2025) Received from [facility] [place] of Occupational Health - Occupational Stress Questionnaire Feeling of Stress : To some extent Social Connections: Socially Isolated (02/28/2025) Received from [facility] Social Connection and Isolation Panel [NHANES] Frequency of Communication with Friends and Family: More than three times a week Frequency of Social Gatherings with Friends and Family: Once a week Attends Muslim Services: Never Active Member of Clubs or Organizations: No Attends Club or Organization Meetings: Never Marital Status: Intimate Partner Violence: Not At Risk (02/28/2025) Received from [facility] Humiliation, Afraid, Rape, and Kick questionnaire Fear of Current or Ex-Partner: No Emotionally Abused: No Physically Abused: No Sexually Abused: No Housing Stability: Low Risk (02/28/2025) Received from [facility] Housing Stability Vital Sign Unable to [...] Physical Exam Vitals reviewed. (more content not included)...[facility] Medical CenterNURSNOTEon 71-11-7772XEYQNITECL educated pt on d/c instructions. This included: [...] wheeled off of unit with all of belongings.[facility]itus Medical CenterCNOVon 44-39-2478LCONUafoio Visit (NEIND4) SAIMR CASTILLO ([id number]) 1955 M Date Time Provider Department 04/29/25 [...] Eun Trent DO 04/29/2025 4:05 PM Signed [facility] General Neurology Follow up/ Established patient visit Individuals who were included in, or assisted with the encounter were: Samir Castillo Eun Black DO Chief Complaint/Issues: Samir Castillo is a 70 year old male seen in the [facility] for General Neurology for: Memory loss [...] Current Outpatient Medications Medicati (more content not included)...NormalAshtabula County Medical CentervelandOrders Onlyon 94-63-0832Xaravl [id number] Kel Castillo 1955 Date Provider Department Center 04/29/2025 [id number] PATTERSON [facility] Family History Problem Relation Age of Onset Diabetes Mother Family Status - Relation Status Age at [facility] HospitalNormalUniSamaritan North Health Center36on 03-96-953350L asked Jacki in the lab if this could be done with Dr. Tolliver prior to his vascular surgery scheduled for 06/07/2025. He has no openings as of right now. Dr. Tolliver, would you be ok with Dr. Silvestre doing the cath? (Not even sure if that would be ok with the patient and his daughter but I thought I'd start with you.)NormalMemorial Health System Selby General Hospital36Please let the patient and his daughter know [...] daughter states she is not happy with [facility] and would like a recommendation. I did advise her I would send a referral to [facility] Nephrology and she stated that would be [...] father need the heart cath prior. Please advise.[facility]itus Medical CenterTelephoneon [id number] JoseKel 1955 M Date Provider Department Center 2025 [id number] PATTERSON SAMI Rasmussen Family History Problem Relation Age of Onset Diabetes Mother Family Status - Relation Status Age at [facility] CenterOrders Onlyon 76-15-5228Nfqerh [id number] Demetri Castilloardo 1955 M Date Provider Department Center 04/27/2025 [id number], HISTORICAL SAMI [facility] Family History Problem Relation Age of Onset Diabetes Mother Family Status - Relation Status Age at [facility]36on 69-67-084369Ymmtbcmlf stress test result from 04/20/2025: Sarah Tolliver [...] Tolliver. He has an apt today at [facility] with vascular surgery. Order for limited echo faxed to [facility] Medical CenterOffice Visiton 76-71-8557Uozgvx-up [id number] Kel Castillo 1955 M Date Provider Department Center 04/21/2025 Twila-ITALO LYLES HVCVASENDO [place] [facility] Family History Problem Relation Age of Onset Diabetes Mother Family Status - Relation Status Age at Mother Level of Service:95345 IA OFFICE/OUTPATIENT NEW MODERATE MDM 45 MINUTES Reason for Visit and Comments: Consult [484] - PAD, leg painNormalUniversity of Texas Children'S Hospital The WoodlandsOrders Onlyon 81-44-7272Jubxiy [id number] Kel Castillo 1955 M Date Provider Department Center 04/20/2025 [id number]-ZNNMNCQZDIFINN PATTERSON CARD [facility] Family History Problem Relation Age of Onset Diabetes Mother Family Status - Relation Status Age at MotherNormalUniversity [facility]36on 77-44-987158Vv calling about bmp results, they are in media please adviseNormalUniversity Clermont County HospitalANESon 89-77-1938JWSW Attestation signed by Sarah Tolliver MD at 04/08/2025 9:29 AM Sarah Tolliver MD, MPH, [facility], [facility], [facility] Interventional Cardiology Pager Email: [email or web address] Patient: Kel Castillo Procedure Information Date/Time: 04/08/2530 Procedures: Aortogram - PC APPROVED AO/ RUNOFFS Lower extremity angiogram (Bilateral) Location: [facility] DISPUTE COORDINATOR 3 / [facility] VASCULAR LAB (Cath) Providers: Sarah [...] products. Plan discussed with attending. Additional Equipment RequestsNormalUniversUniversity Hospitals Health SystemBASIC METABOLIC PANELon 86-72-8440Tejmw gap [Moles/Vol]10 mmol/LNormal7-20UnTrinity Health System Twin City Medical CenterComment on above:Performed By: #### [id number] ####[facility] (AKER)[address] [place], [place] [address]Uievtwj [Mass/Vol]9.3 mg/dLNormal8.6-10.3UnTrinity Health System Twin City Medical CenterComment on above:Performed By: #### [id number] ####[facility] (BEAKER)[address] [place] [address] Chloride [Moles/Vol]106 mmol/JAjkopa43-609PyfkrlojxiTrinity Health System [facility] City Medical Center Comment on above:Performed By: #### [id number] ####[facility] (BEAK[place])[address] [place], [place] [address]HF6 [Moles/Vol]28 mmol/LRkfylm24-48LicjporjezTrinity Health System Twin City Medical CenterComment on above:Performed By: #### [id number] ####[facility] (AKER)[address] [place], [place] [address]Xsdefthvkc [Mass/Vol]2.18 mg/dL High0.70-1.30UnTrinity Health System Twin City Medical CenterComment on above:Performed By: #### [id number] ####[facility] (AKER)[address] [place] [address] GLOMERULAR FILTRATION RATE ML/MIN/1.73 SQ M.UQOOBILHE49.6 mL/min/1.73m*2Low>60.0 [facility] General HospitalComment on above:Result Comment: The [facility]???s estimated glomerular filtration rate (eG FR) will [...] of individuals. Performed By: #### [id number] ####[facility] ([facility])[address] [place], [place] [address]Znnmkdh [Mass/Vol]102 mg/uVJwwt61-768EwbesgpnacTrinity Health System Twin City Medical CenterComment on above:Performed By: #### [id number] ####[facility] ([facility])[address] [place], [place] [address]Wbiecebpi [Moles/Vol]4.4 mmol/LNormal 3.5-5.1UnTrinity Health System Twin City Medical CenterComment on above:Performed By: #### [id number] ####[facility] ([facility])[address] [place], [place] [address]Rorxkd [Moles/Vol]140 mmol/MKlrtie130-758QpyzvbyubhTrinity Health System Twin City Medical CenterComment on above:Performed By: #### [id number] ####[facility] ([facility])[address] [place], [place] [address]Ihax nitrogen [Mass/Vol]34 mg/dLHigh7-25UnTrinity Health System Twin City Medical CenterComment on above:Performed By: #### [id number] ####[facility] ([facility])[address] [place], [place] [address]QBKV NITROGEN/CREATININE (MASS RATIO) IN SER/PLAS15.6NormalUniSamaritan North Health CenterComment on above: Performed By: #### [id number] ####[facility] ([facility])[address] [place], [place] [address]RICgi 53-44-0925Qhmyiwmjhom distribution width (RBC) [Ratio]14.6 % Bdpkcw45.5-15.0UnTrinity Health System Twin City Medical CenterComment on above:Performed By: #### [id number] ####[facility] (BEAKER)[address] [place] [address] ERYTHROCYTE MEAN CORPUSCULAR HEMOGLOBIN CONCENTRATION (G/DL) BY BCCNTMRNK23.1 g/eAPviohg62.0-35.0UnTrinity Health System Twin City Medical CenterComment on above:Performed By: #### [id number] ####[facility] (BEAKER)[address] [place], [place] [address]Dsawstnsbv (Bld) [Volume fraction]34.1 %Low39.0-50.0UnTrinity Health System Twin City Medical CenterComment on above:Performed By: #### [id number] ####[facility] (BEAKER)[address] [place], [place] [address]Jxwdqcnbqz (Bld) [Mass/Vol]11.3 g/dL Low13.0-17.0UnTrinity Health System Twin City Medical CenterComment on above:Performed By: #### [id number] ####[facility] (BEAKER)[address] [place], [place] [address]YTR (RBC) [Entitic mass]30.6 maQtells07.0-33.0UnTrinity Health System Twin City Medical Center Comment on above:Performed By: #### [id number] ####[facility] (BEAKER)[address] [place], [place] [address]WCC (RBC) [Entitic vol]92.4 nQMqxwfb51.0-98.0 [facility] HospitalComment on above:Performed By: #### [id number] ####[facility] (BEAKER)[address] [place], [place] [address]OVVOUNREP (10*3/UL) IN BLOOD AUTOMATED KMZDS048 10*3/sQAzgubq484-684RgftvnuyvaTrinity Health System Twin City Medical CenterComment on above:Performed By: #### [id number] ####[facility] (BEAKER)[address] [place], [place] [address]ZAM (Bld) [#/Vol]3.69 10*6/uLLow 4.20-5.70UnTrinity Health System Twin City Medical CenterComment on above:Performed By: #### [id number] ####[facility] ([place])[address] [place] [address]JNX (Bld) [#/Vol]6.07 10*3/uLNormal4.00-10.60UnTrinity Health System Twin City Medical CenterComment on above:Performed By: #### [id number] ####[facility] ([place])[address] [place] [address]OPjl 19-69-7201DS Attestation signed by Sarah Tolliver MD at [...] his baseline creatinine. Sarah Tol[facility] MD, MPH, [facility] Interventional Cardiology Pager Email: [email or web address] History Of Present Illness Kel Castillo is a 69 y.o. male presenting initally in clinic with leg pain. He has an extensive PMH of CAD s/p 3V CABG in 2009, CKD 4, PAD, HTN, HLD, COPD. His last cath was in 2019 which showed severe chickaloon CAD, patent SPRAGUE-LAD and SVG-OM but occluded radial-PDA. Aortogram at that time showed new severely calcific right LINSEED OIL TEMPERER lesion. His last TTE in 02/19/25 notes [...] aortogram w/ bilateral angiography Evgeny Arceo MD Creative Writing Professor, PGY-4 [facility] 04/08/25 9:15 AM [1] Medications Prior [...] by mouth in the morning. 04/08/2025 Morning fmuajbyfadg-knhqxcwrq-rjsnotxg (Huy (more content not included)...Normal [facility] HospitalNURSNOTEon 60-92-0496MVRTHXHVVF educated pt on d/c instructions. This included: [...] wheeled off of unit with all of belongings.NormalMemorial Health System Selby General HospitalOrders Onlyon 12-11-5462Tbouxr [id number] Kel Castillo 1955 M Date Provider Department Center 04/08/2025 Estrellita7-VALERIEREGINA [facility] VASC LAB [place] HeartVAS Family History Problem Relation Age of Onset Diabetes Mother Family Status - Relation Status Age at MotherNormalUniversUniversity Hospitals Health SystemCNPNon 41-62-2040YAMQChcaxlgnb (AGCARDPOB) CASTILLOSAMIR FISCHER ([id number]) 1955 M Date Time Provider Department 04/05/25 BILL GANT AGCARDPOB During your visit today, we recorded the following information about you: Mariana Wheeler LPN 04/05/2025 4:03 PM Signed Chest x-ray results received from [facility]. Scanned in for review. Mariana Wheeler LPN Allergies As of Date: 04/05/2025 (No Known Allergies) Date Reviewed: 04/01/2025 Reviewed by: Neha Orozco MA - Fully Assessed Reason for Visit: Phys Assistant - Other [3602] Prescriptions as of 04/05/2025 [...] TABLETS BY MOUTH EVERY DAY - omega 2-mtw-khr-fish oil (FISH OIL) 100-160-1,000 mg cap Take by mouth. Problem List As Of Date 04/05/2025 Noted Resolved Dyspnea and respiratory abnormalities [R06.00, *02/09/2022 Recurrent major depression in partial remission*04/12/2022 MCI (mild cognitive impairment) [G31.84] 04/12/2022 Encounter Status:Closed by MARIANA WHEELER on 04/05/25[facility]XR [facility]ST 2 VWSon 76-12-3757VZ CHEST 2 VWSXR CHEST 2 VWS HISTORY: Other emphysema (CMS-HCC) COMPARISON: 02/26/2024 TECHNIQUE: PA and lateral views of the chest. FINDINGS: Unchanged cardiopericardial silhouette. Streaky opacities right lower lung potentially atelectasis or scarring. Volume loss right lung. No dense consolidation. No pneumothorax. No pleural effusion. IMPRESSION: Chronic lung disease without definite acute pulmonary process. Finalized by Roc Valverde MD on 04/05/2025 2:41 [facility] CERVICAL SPINE WO CONTon 91-43-1262GF CERVICAL SPINE WO CONTMR CERVICAL SPINE WO [...] by Kana Swain MD on 04/03/2025 12:02 [facility] NT-PROBNP SERPL-MCNCon 30-66-2607Brhwlqpopqr peptide B (Bld) [Mass/Vol]4813 pg/mLHighNINF - 125 pg/mLNOMS HealthcareSpecimen Type: BLOOD SPECIMEN Ordering Facility: [facility] Address: [address], [place] [id number] Original Ordering Provider: BILL Morrison 55-57-9072TQMKQrzbbo Visit (AGCARDPOB) SAMIR CASTILLO ([id number]) 1955 M Date Time Provider Department 04/01/25 [...] a new patient visit. He lives in [place] and gets most of his care in [place] at [facility] but just wants a second opinion [...] supplemental oxygen. He has not seen a brancher recently and has not had any pulmonary [...] family for transportation. 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 He quit smoking 40 [...] 1/2 TABLETS BY MOUTH EVERY DAY omega 4-ehs-vim-fish oil (FISH OIL) 100-160-1,000 mg cap Take [...] Date: Wt: 10/12/2024 169 (more content not included)...NormalNorthern Light A.R[facility] Hospital ECG B/O W INTERP (MED OFFICE)on 36-49-3154Ruyosq sinus rhythm nonspecific ST-T changes septal Q wavesMansfield HospitalNT PRO BNPon 04-01-2025 Natriuretic peptide.B prohormone N-Terminal [Mass/Vol]4813 pg/mLHighNINF - 125 pg/mLCleveland ClinicNT-proBNP SerPl-mCncon 36-83-9379Lnercahimiy peptide.B prohormone N-Terminal [Mass/Vol]4813 pg/mLHigh<125[facility] Comment on above:Order Comment: Specimen Type: BLOOD SPECIMEN Ordering Facility: [facility] Address: [address] [place] [address] [place], [place] [address]Performed By: #### [id number] #### [facility] CLIA [id number] [address] Panel Informationon 04-01-2025 Interpretation and review of laboratory resultsAbBlowing Rock Hospital36on 37-46-746652Lntar with daughter and informed her I would put orders in and [facility] would be contacting her to set this up. I advised her her father would need lab orders about 1 week prior to scheduled procedure. She verbalized understanding. Orders entered and faxed to [facility]36Spoke with his daughter Nini. She says he's having extreme leg pain . You aren't here in [place] again for another 4 weeks. Daughter would like to proceed with LE angiogram if that's ok with you?[place] [address]I received a call from radiology at [facility]. This patient is here now for CTA abdomen/pelvis. Due to elevated s. creatinine (2.07, GFR 32), the test was unable to be performed. Would you like him to try again? How long should he wait to get it rescheduled? Thanks.[facility]itus Medical CenterOrders Onlyon 04-54-9315Hfrzwi [id number] Kel Castillo 1955 M Date Provider Department Center 03/11/2025 IAN HORNE [facility] Family History Problem Relation Age of Onset Diabetes Mother Family Status - Relation Status Age at MotherNormalUniversFirelands Regional Medical [facility] CREATININEon 03-11-2025 Creatinine [Mass/Vol]2.07 mg/dLHigh0.70 - 1.30 mg/dLNOPR HealthcareGFR/1.73 sq M.predicted CKD-EPI (S/P/Bld) [Vol rate/Area]39Low>=60 mL/min/1.73m 2NOMS HealthcareInterpretation and review of laboratory resultsAbScheurer Hospital EGFR-NON AF HGSZRWZL16Gkw>=60 mL/min/1.73m 2NOMS HealthcareCLINISYNCNOMS Tizhzxjivs84nl 94-20-188611Qqv telephone note on 02/24/[address] Tolliver. [place] [address]on 06-84-709043Xmjpyyqov HUBER's performed on 02/18/2025: MD Ian Juarez MA If the patient is having leg pain, please order an abdominal CTA with run offs (bilateral lower extremity angiography) Thanks. Spoke with patient's daughter and she states he's having lots of leg pain. Told her Dr. Tolliver would like further testing and she agreed. Order faxed to [facility]. Daughter verbalized understanding.[facility]36 Spoke to daughter advised her of Dr. Levi ECHO findings. Daughter verbalized understanding. Daughter is requesting results of HUBER'S advised daughter as soon as Reviews them we will call her with the results. Daughter states she is very concerned with what she read on KP Corphart about HUBER test resultsNormalUniUC Medical CenterEGMENTAL BLOOD PRESSUREon 96-61-1257DdjSm[place] [address] Cardiology Report Signed Patient: KEL CASTILLO Jr. MR#: [id number] : 1955 Acct:[id number] Age/Sex: 69 / M ADM Date: 02/18/25 Loc: CARD Attending Dr: Sarah Tolliver M.D. Ordering Physician: Sarah Tolliver M.D. Date of Service: 02/18/25 Procedure(s): CA segmental UE or LE LEENA Accession Number(s): [id number] cc: Noa Watson OPERATIONS FORESTER; Sarah Tolliver M.D. 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 Recommend further imaging with CT or invasive angiography. Electronically Signed On 02-23-2025 12:52:03 EDT by SARAH TOLLIVER Dictated By: Sarah Tolliver M.D. Signed By: 02/23/25 1252 02/23/25 1252 DD/ 0841 TD/TT: Leave Manager:Daniel Ramirez MD - 02/23/2025 [place] [address] Cardiology Report Signed Patient: KEL CASTILLO Jr. MR#: [id number] : 1955 Acct:[id number] Age/Sex: 69 / M ADM Date: 02/18/25 Loc: CARD Attending Dr: Sarah Tolliver M.D. Ordering Physician: Sarah Tolliver M.D. Date of Service: 02/18/25 Procedure(s): CA segmental UE or LE LEENA Accession Number(s): [id number] cc: Noa Watson OPERATIONS FORESTER; Sarah Tolliver M.D. [facility] Test Date: 2025-02-18 Pat Name: KEL CASTILLO Department: Room: - Gender: Male Tieing Machine Operator: : 1955 Requested By: SARAH TOLLIVER Order Number: [id number] Reading MD: SARAH TOLLIVER Interpretive Statements Bilateral, moderately reduced ankle-brachial indices. 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 Recommend further imaging with CT or invasive angiography. Electronically Signed On 02-23-2025 12:52:03 EDT by SARAH TOLLIVER Dictated By: Sarah Tolliver M.D. Signed By: 02/23/25 1252 02/23/25 1252 DD/ 0841 TD/TT: Leave Manager: EDWIN [facility] Medical CenterSEENTAL BLOOD PRESSUREOrdered By: Radiologist Radiology on 42-50-4873C[facility] [employer] Work Phone: [phone] [phone]'s daughter called asking about result of echo. It was just scanned into you about 10 minutes ago. She saw the result from [facility] portal Saturday night and was concerned when she saw the word severe in the result. Daughter told me she called the [facility] physician occupational therapy aides teacher Saturday night. I told her it was fine to wait until you reviewed result and I would call her. Thanks.[facility] Medical CenterTelephoneon [id number] Kel Castillo 1955 M Date Provider Department Center 02/22/2025 RubenIAN OLIVA [facility] Family History Problem Relation Age of Onset Diabetes Mother Family Status - Relation Status Age at MotherNormalUniSamaritan North Health CenterCA ECHO DOPPLER COMPLETEon 12-84-2179[place]Sm[place] [address] Cardiology Report Signed Patient: KEL CASTILLO Jr. MR#: [id number] : 1955 Acct:[id number] Age/Sex: 69 / M ADM Date: 02/18/25 Loc: CARD Attending Dr: Sarah Tolliver M.D. Ordering Physician: Sarah Tolliver M.D. Date of Service: 02/18/25 Procedure(s): CA echo doppler complete Accession Number(s): [id number] cc: Noa Watson NP; Sarah Tolliver M.D. Patient Name: KEL CASTILLO MR#: [id number] : 1955 Exam Date: 02/18/2025 Ordering Doctor: [...] Area (VTI): 2.12 cm2, 2.12 cm2 Deceleration Waldo: Pressure Half-Time: Peak Velocity(Antegrade Flow): 1.47 m/s Peak Gradient(Antegrade Flow): 8.67 mm[Hg] Mean Velocity(Antegrade Flow): 0.98 m/s Mean Gradient(Antegrade Flow): 4.49 mm[Hg] Velocity Time Integral: 37.64 cm Tricuspid Valve Peak Velocity (Regurgitant Flow): 2.39 m/s, 3.11 m/s, 3.28 m/s Peak Velocity: Pulmonic Valve Mean Gradient: Mean Velocity: (more content not included)...TBHRadiology, Radiologist, MD - 02/19/2025 [place] [address] Cardiology Report Signed Patient: KEL CASTILLO Jr. MR#: [id number] : 1955 Acct:[id number] Age/Sex: 69 / M ADM Date: 02/18/25 Loc: CARD Attending Dr: Sarah Tolliver M.D. Ordering Physician: Sarah Tolliver M.D. Date of Service: 02/18/25 Procedure(s): CA echo doppler complete Accession Number(s): [id number] cc: Noa Watson OPERATIONS FORESTER; Sarah Tolliver M.D. Patient Name: KEL CASTILLO MR#: [id number] : 1955 Exam Date: 02/18/2025 Ordering Doctor: [...] Area (VTI): 2.12 cm2, 2.12 cm2 Deceleration Waldo: Pressure Half-Time: Peak Velocity(Antegrade Flow): 1.47 m/s [...] M.D. Signed By: 02/19/251822 DD/ 21 TD/TT: Leave Manager: [facility]l Cancer CenterRadiology Study observation (narrative)[facility] ECHO DOPPLER COMPLETEOrdered By: Radiologist Radiology on 59-29-4901[facility] [employer] Work Phone: SEGMENTAL BLOOD PRESSUREon 17-78-8030Muibmltjt Study observation (narrative)[facility]l Cancer CenterCBC (NO DIFF)on 85-05-0389Tdqbznaxdrf distribution width (RBC) [Ratio]14.9 %Dgaayr00.5-15[facility] Comment on above:Performed By: #### UA #### [facility] ([id number]) [address], [address] [place], [place] [address]Zmatvtgztr (Bld) [Volume fraction]34.1 %Pru25-38BbxDxihfjParkview Health Bryan HospitalComment on above:Performed By: #### UA #### [facility] ([id number]) [address], [address] [place], [place] [address]Dnuvzhlaia (Bld) [Mass/Vol]11.5 g/bJQdu46-80AltNvrtriMethodist Southlake HospitalComment on above:Performed By: #### UA #### [facility] ([id number]) [address], [address] [place], [place] [address]FDN (RBC) [Entitic mass]30.6 khErgnhb17-03ZdkKvijinParkview Health Bryan HospitalComment on above:Performed By: #### UA #### [facility] ([id number]) [address], [address] [place] [address]KGMB (RBC) [Mass/Vol]33.6 g/qCIzcryr67-44OovRlshauMethodist Southlake HospitalComment on above:Performed By: #### UA #### [facility] ([id number]) [address], [address] [place], [place] [address]WYK (RBC) [Entitic vol]91 bVNmfxdn81-133CkqWekmtaParkview Health Bryan HospitalComment on above:Performed By: #### UA #### [facility] ([id number]) [address], [address] [place], [place] [address]Kcjqlhrp mean volume (Bld) [Entitic vol]7.5 fLNormal7-12 [facility] HospitalComment on above:Performed By: #### UA #### [facility] ([id number]) [address], [address] [place], [place] [address]Cqrpqxago (Bld) [#/Vol]122 10*3/bTJna877-370JbrNlcotoMethodist Southlake HospitalComment on above:Performed By: #### UA #### [facility] ([id number]) [address], [address] [place], [place] [address]GUN COUNT3.75 X10E12/LLow4.1-5.7[facility] Comment on above:Performed By: #### UA #### [facility] ([id number]) [address], [address] [place], [place] [address]LYD (Bld) [#/Vol]5.5 10*3/uLNormal4-11[facility] Comment on above:Performed By: #### UA #### [facility] ([id number]) [address] [facility], [address] [place], [place] [address]BHRRWSKXCor 53-58-3470Udcaokkpv [Mass/Vol]2.0 mg/dLNormal1.8-2.6 [facility] HospitalComment on above:Performed By: #### UA #### [facility] ([id number]) [address] [facility], [address] [place], [place] [address]PJUSNJRAKCKE / CREATININE URINE RATIOon 44-90-3851Bczxkiw DL <= 20 mg/L (U) [Mass/Vol]0.9 mg/dLNormal0.0-1.9[facility] HospitalComment on above:Performed By: #### CBC, 2276-4, 1-8, 2131-9, 2283-8, 39011-9, FEPR, 72559-3, LIVR, 56008-4, RENAL, 3084-1 #### [facility] ([id number]) [address] [facility], [address] [place], [place] [address]LGFX/CREAT RATIO6.8 mg/gNormal0.0-30.0[facility] Comment on above:Performed By: #### CBC, 2276-4, 1-8, 2131-9, 4-8, 30440- 6, FEPR, 76911-2, LIVR, 00553-9, RENAL, 3084-1 #### [facility] ([id number]) [address], [address] [place], [place] [address]FWIUP CREATININE,ADA733.37 mg/dLNormalProMethodist Southlake Hospital Comment on above:Performed By: #### CBC, 2276-4, 1-8, 2131-9, 2283-8, 79059- 6, FEPR, 72606-0, LIVR, 23106-0, RENAL, 3084-1 #### [facility] ([id number]) [address], [address] [place], [place] [address]OCDBG PANELon 14-11-2990Cgduhuc [Mass/Vol]4.1 g/dLNormal3.2-5.3 [facility] HospitalComment on above:Performed By: #### UA #### [facility] ([id number]) [address], [address] [place] [address]Vbmjr gap [Moles/Vol]9 mmol/LNormal5-15[facility] HospitalComment on above:Performed By: #### UA #### [facility] ([id number]) [address], [address] [place], [place] [address]Bvyyxsf [Mass/Vol]9.1 mg/dLNormal8.5-10.5PMartin Memorial HospitalComment on above:Performed By: #### UA #### [facility] ([id number]) [address], [address] [place], [place] [address]Noibmcun [Moles/Vol]110 mmol/RAabt21-144SbvOxqftvParkview Health Bryan HospitalComment on above:Performed By: #### UA #### [facility] ([id number]) [address], [address] [place] [address]QE0 [Moles/Vol]26 mmol/YNvffpq22-87ZbwBcdkinMartin Memorial Hospital Comment on above:Performed By: #### UA #### [facility] ([id number]) [address], [address] [place] [address]Kcfehxggyw [Mass/Vol]1.87 mg/dLHigh0.60-1.30[facility] HospitalComment on above:Result Comment: METHOD TRACEABLE TO IDMS STANDARD Performed By: #### UA #### [facility] ([id number]) [address], [address] [place] [address]XLV/1.73 sq M.predicted among non-blacks MDRD (S/P/Bld) [Vol rate/Area]38 mL/min/{1.73_m2}Low>=60ProMethodist Southlake HospitalComment on above: Result Comment: Reported eGFR is based on the CKD-EPI 2020 equation that does not use a race coefficient.Performed By: #### UA #### [facility] ([id number]) [address], [address] [place] [address]Souzlrh [Mass/Vol]93 mg/mCZbypmv56-02AjpKblxjuParkview Health [facility] Hospital Comment on above:Performed By: #### UA #### [facility] ([id number]) [address], [address] [place], [place] [address]Nlxzgmxeu [Mass/Vol]4.0 mg/dLNormal2.4-4.9ProMethodist Southlake HospitalComment on above:Performed By: #### UA #### [facility] ([id number]) [address], [address] [place], [place] [address]Ckjqcutmw [Moles/Vol]4.3 mmol/LNormal3.5-5.0ProMethodist Southlake HospitalComment on above:Performed By: #### UA #### [facility] ([id number]) [address], [address] [place], [place] [address]Nprsft [Moles/Vol]145 mmol/TOibjkh811-794TarFfdsft [facility] HospitalComment on above:Performed By: #### UA #### [facility] ([id number]) [address], [address] [place], [place] [address]Pnpk nitrogen [Mass/Vol]30 mg/dLHigh5-27ProMethodist Southlake HospitalComment on above:Performed By: #### UA #### [facility] ([id number]) [address], [address] [place], [place] [address]BUFSOLFPSYek 47-45-3992Nnjurggxx Ql (U)NegativeNormalNegative [facility] Gardner SanitariumComment on above:Performed By: #### UA #### [facility] ([id number]) [address], [address] [place], [place] [address]WGRHD/HGBNegativeNormalNegativeParkview Health Bryan HospitalComment on above:Performed By: #### UA #### [facility] ([id number]) [address], [address] [place], [place] [address]Sunjj (U)YellowNormalYellow, ColorlessParkview Health [facility] Hospital Comment on above:Performed By: #### UA #### [facility] ([id number]) [address], [address] [place], [place] [address]Oamsuuz Ql (U)NegativeNormalNegTuscarawas Hospital Comment on above:Performed By: #### UA #### [facility] ([id number]) [address], [address] [place], [place] [address]Bhpawbn Ql (U)NegativeNormalNegativeParkview Health [facility] Hospital Comment on above:Performed By: #### UA #### [facility] ([id number]) [address], [address] [place], [place] [address]Scyjxlgjv esterase Test strip Ql (U)NegativeNormalNegative ProMjohn a. andrew memorial hospitala Gardner SanitariumComment on above:Performed By: #### UA #### [facility] ([id number]) [address], [address] [place], [place] [address]Rkklgaa Ql (U)NegativeNormalNegTuscarawas Hospital Comment on above:Performed By: #### UA #### [facility] ([id number]) [address], [address] [place], [place] [address]SP,URINE6.4Pviehz3.0-8.5ProMedica Gardner SanitariumComment on above:Performed By: #### UA #### [facility] ([id number]) [address], [address] [place], [place] [address]Dqcaxrk Ql (U)NegativeNormalNegativeParkview Health [facility] Hospital Comment on above:Performed By: #### UA #### [facility] ([id number]) [address], [address] [place], [place] [address]Lmpsukxk gravity (U) [Rel density]1.801Nnmbbh6.003-1.035 [facility] SanitariumComment on above:Performed By: #### UA #### [facility] ([id number]) [address], [address] [place], [place] [address]NJQFQHTQDVmbteExunlqPjtgxQsiEjxtjt [facility] HospitalComment on above:Performed By: #### UA #### [facility] ([id number]) [address], [address] [place], [place] [address]ICGMNEBZVYTA<1.1 eu/dLNormal<1.1 eu/dLParkview Health Bryan Hospital Comment on above:Performed By: #### UA #### [facility] ([id number]) [address], [address] [place], [place] [address]SC SPINE CERVICAL 3 VWS OR LESSon 32-27-1432RW SPINE CERVICAL 3 VWS OR LESSXR SPINE [...] by Oh Wild MD on 01/12/2025 12:57 AMNormalProMethodist Southlake HospitalCOMPLETE BLOOD COUNTon 48-62-3121Wauyblrxpgl distribution width (RBC) [Ratio]15.0 %Dftzey38.5-15.0[facility] HospitalComment on above:Performed By: #### CBC, 2276-4, 2731-8, 2132-9, 2284-8, 45069-7, FEPR, 05122-8, LIVR, 05402-5, RENAL, 3084-1 #### [facility] ([id number]) [address], [address] [place], [place] [address]Bkfehliyxy (Bld) [Volume fraction]36.4 %Ftc93-48CwdKtyahzMethodist Southlake HospitalComment on above:Performed By: #### CBC, 6-4, 2730-8, 9, 2283-8, 18256-3, FEPR, 49495-8, LIVR, 30007-6, RENAL, 3084-1 #### [facility] ([id number]) [address] [facility], [address] [place], [place] [address]Sqlcupzday (Bld) [Mass/Vol]12.5 g/dLLow13.0-17.0[facility] HospitalComment on above:Performed By: #### CBC, 2275-4, 2730-8, 9, 8, 24949-3, FEPR, 81048-4, LIVR, 54813-8, RENAL, 3084-1 #### [facility] ([id number]) [address], [address] [place], [place] [address]VMH (RBC) [Entitic mass]30.8 ehYnydao00-39TcvZlddyxMethodist Southlake HospitalComment on above:Performed By: #### CBC, 6-4, 2730-8, 9, 8, 36812-0, FEPR, 58835-6, LIVR, 33467-6, RENAL, 3084-1 #### [facility] ([id number]) [address], [address] [place], [place] [address]AJKR (RBC) [Mass/Vol]34.4 g/eIRszgne67-20XfoCyvpogMethodist Southlake HospitalComment on above:Performed By: #### CBC, 6-4, 2730-8, 9, 2283-8, 64071-6, FEPR, 60540-8, LIVR, 50059-4, RENAL, 3084-1 #### [facility] ([id number]) [address], [address] [place], [place] [address]WDJ (RBC) [Entitic vol]89 iZVorkqf91-884YzvXjipkt [facility] HospitalComment on above:Performed By: #### CBC, 6-4, 1-8, 2131-9, 2283-8, 88447-3, FEPR, 32451-0, LIVR, 28915-1, RENAL, 3084-1 #### [facility] ([id number]) [address] [facility] [place], [place] [address]Zkrrizfa mean volume (Bld) [Entitic vol]7.4 fLNormal7-12 [facility] HospitalComment on above:Performed By: #### CBC, 6-4, 2730- 8, 2131-9, 2283-8, 90467-8, FEPR, 06887-9, LIVR, 00313-4, RENAL, 3084-1 #### [facility] ([id number]) [address], [address] [place], [place] [address]Mmszwhdux (Bld) [#/Vol]145 10*3/nFYbc066-982QiqEhuygeMethodist Southlake HospitalComment on above:Performed By: #### CBC, 6-4, 2730-8, 2131-9, 2283-8, 55598-2, FEPR, 40552-3, LIVR, 87495-1, RENAL, 3084-1 #### [facility] ([id number]) [address], [address] [place], [place] [address]UIQ COUNT4.08 X10E12/LLow4.10-5.70[facility] Comment on above:Performed By: #### CBC, 6-4, 1-8, 2131-9, 228-8, 35085- 6, FEPR, 09487-1, LIVR, 01479-5, RENAL, 3084-1 #### [facility] ([id number]) [address] [place] [address], [address] [place], [place] [address]RRP (Bld) [#/Vol]5.3 10*3/uLNormal4.0-11.0[facility] HospitalComment on above:Performed By: #### CBC, 6-4, 2730-8, 9, 2283-8, 15232-5, FEPR, 63375-9, LIVR, 22208-3, RENAL, 3084-1 #### [facility] ([id number]) [address] [place] [address], [address] [place], [place] [address]PKZSHABMmk 38-40-1694Fgdardgc [Mass/Vol]67 ng/iOHbrdci43-871 [facility] HospitalComment on above:Performed By: #### CBC, 6-4, 2730- 8, 9, 2283-8, 34725-0, FEPR, 79205-9, LIVR, 28357-0, RENAL, 3084-1 #### [facility] ([id number]) [address] [place] [address], [address] [place], [place] [address]Xuxzvv [Mass/Vol]on 13-20-5437ITSMN ACID24.5 ng/mLNormal>5.8 [facility] HospitalComment on above:Result Comment: NEW REFERENCE RANGE Performed By: #### CBC, 6-4, 2730-8, 9, 2283-8, 42378-0, FEPR, 27579-0, LIVR, 51843-1, RENAL, 3084-1 #### [facility] ([id number]) [address] [place] [address], [address] [place], [place] [address]GBEW PROFILEon 34-21-7570Nrdb [Mass/Vol]75 ug/rZFwtaek04-210 [facility] HospitalComment on above:Performed By: #### CBC, 6-4, 2730- 8, 2132-04, 2283-8, 77750-1, FEPR, 31865-9, LIVR, 14936-7, RENAL, 3084-1 #### [facility] ([id number]) [address] [place] [address], [address] [place], [place] [address]DTWJ CVDBZSI681 ug/cISzlezs520-206ImqRhjmwxParkview Health [facility] Hospital Comment on above:Performed By: #### CBC, 6-4, 2730-8, 2131-9, 2283-8, 87950- 6, FEPR, 00568-9, LIVR, 00672-2, RENAL, 3084-1 #### [facility] ([id number]) [address] [place] [address], [address] [place], [place] [address]IRUS YGOTTXPKVX28 % PJZCWOXVPLLdb15-56UavOcllba [facility] Comment on above:Performed By: #### CBC, 6-4, 2730-8, 2131-9, 2283-8, 20245- 6, FEPR, 23100-4, LIVR, 98232-8, RENAL, 3084-1 #### [facility] ([id number]) [address] [place] [address], [address] [place], [place] [address]GYNPK PANELon 38-57-6708Wqtlpul [Mass/Vol]4.3 g/dLNormal3.2-5.3 [facility] Hospitaledica Gardner SanitariumComment on above:Performed By: #### UA #### [facility] ([id number]) [address] [place] [address], [address] [place], [place] [address]OYF [Catalytic activity/Vol]48 U/WIjlamk99-329RboCoazqxMethodist Southlake HospitalComment on above:Performed By: #### UA #### [facility] ([id number]) [address] [place] [address], [address] [place], [place] [address] [Catalytic activity/Vol]28 U/LNormal0-40ProMethodist Southlake HospitalComment on above:Performed By: #### UA #### [facility] ([id number]) [address] [facility], [address] [place], [place] [address]MWT [Catalytic activity/Vol]33 U/LNormal0-41ProMethodist Southlake HospitalComment on above:Performed By: #### UA #### [facility] ([id number]) [address] [place] [address], [address] [place], [place] [address]Umxalnttt [Mass/Vol]0.6 mg/dLNormal0.3-1.2PMartin Memorial HospitalComment on above:Performed By: #### UA #### [facility] ([id number]) [address] [facility], [address] [place], [place] [address]Ilxqcdbxh.direct [Mass/Vol]0.2 mg/dLNormal0.0-0.4[facility] HospitalComment on above:Performed By: #### UA #### [facility] ([id number]) [address] [place] [address], [address] [place], [place] [address]Nyxyyhi [Mass/Vol]6.7 g/dLNormal6.0-8.0ProMethodist Southlake HospitalComment on above:Performed By: #### UA #### [facility] ([id number]) [address] [place] [address], [address] [place], [place] [address]Eoizx 1996 panelon 24-83-1972Merowwammtu [Mass/Vol]119 mg/dLLow 150-200ProMethodist Southlake HospitalComment on above:Performed By: #### CBC, 2276- 4, 2731-8, 2132-9, 2284-8, 59763-2, FEPR, 38529-8, LIVR, 58726-3, RENAL, 3084-1 #### [facility] ([id number]) [address] [facility], [address] [place], [place] [address]Owxzaksizeu in HDL [Mass/Vol]42 mg/dLNormal>39ProMethodist Southlake HospitalComment on above:Result Comment: HDL <40 mg/dL - High Risk HDL > or = 40mg/dL- Desirable HDL >60 mg/dL - Negative Risk Performed By: #### RUY, 2276-4, 2731-8, 2132-9, 2284-8, 25171-6, FEPR, 91605-0, LIVR, 79161-8, RENAL, 3084-1 #### [facility] ([id number]) [address], [address] [place], [place] [address]Ivmynzwdpkb in LDL [Mass/Vol]52 mg/dLNormal<130ProMethodist Southlake HospitalComment on above:Result Comment: LDL <100 mg/dL - Desirable LDL >160 mg/dL - High Risk Performed By: #### RUY, 2276-4, 2731-8, 2132-9, 4-8, 24197-4, FEPR, 06050-1, LIVR, 93234-2, RENAL, 3084-1 #### [facility] ([id number]) [address] [place], [place] [address]Ohvqxsnzmzo in VLDL [Mass/Vol]25 mg/dLNormal0-30ProMethodist Southlake HospitalComment on above:Performed By: #### RUY, 2276-4, 2731-8, 2132-9, 2284-8, 93557-2, FEPR, 14437-0, LIVR, 40933-1, RENAL, 3084-1 #### [facility] ([id number]) [address], [address] [place], [place] [address]CHALGCNBYFL:HDL2.9Zzqhpc5.0-5.0ProMethodist Southlake HospitalComment on above:Performed By: ###Lance REDMOND, 2276-4, 2731-8, 2131-9, 2283-8, 26770-3, FEPR, 13692-5, LIVR, 62525-7, RENAL, 3084-1 #### [facility] ([id number]) [address] [place], [place] [address]Fbfmfqpadcwd [Mass/Vol]125 mg/bHSnxjfw18-983PhnTkeoda [facility] HospitalComment on above:Performed By: #### CBC, 6-4, 2730-8, 9, 2283-8, 56647-8, FEPR, 89569-8, LIVR, 10726-5, RENAL, 3084-1 #### [facility] ([id number]) [address] [facility] [address] [place], [place] [address]SOYEBQZYUcr 15-65-3319Bwlgzzlng [Mass/Vol]2.0 mg/dLNormal1.8-2.6 [facility] SanitariumComment on above:Performed By: #### UA #### [facility] ([id number]) [address] [place], [place] [address]LWVTXSO CREAT RATIOon 43-85-1615HUVPZP URINE WFMBNLI292 mg/LHigh <120ProMethodist Southlake HospitalComment on above:Performed By: #### UA #### [facility] ([id number]) [address], [address] [place], [place] [address]H/PRO/OPERATIONS MANAGER RATIO CALC0.09Normal<0.2PMartin [facility] Hospital Comment on above:Result Comment: Nephrotic Syndrome is associated with ratios >3.5Performed By: #### UA #### [facility] ([id number]) [address], [address] [place], [place] [address] CREATININE,EZP636.09 mg/dLNoalParkview Health Bryan Hospital Comment on above:Performed By: #### UA #### [facility] ([id number]) [address], [address] [place] [address]Yhyzpnngby.intact [Mass/Vol]on 02-34-9014FKH ZQMNJH70 pg/mL Jxyzuk50-24XydSskfhnParkview Health Bryan HospitalComment on above:Performed By: #### CBC, 2276-4, 2731-8, 2132-9, 2284-8, 80967-2, FEPR, 41009-5, LIVR, 34680-7, RENAL, 3084-1 #### [facility] ([id number]) [address], [address] [place] [address]MUSLI PANELon 20-40-9920Xhxfd gap [Moles/Vol]13 mmol/LNormal5-15 [facility] HospitalComment on above:Performed By: #### UA #### [facility] ([id number]) [address] [address] [place] [address]Gbbnxuy [Mass/Vol]9.2 mg/dLNormal8.5-10.5PMartin Memorial HospitalComment on above:Performed By: #### UA #### [facility] ([id number]) [address], [address] [place] [address]Dosymhhw [Moles/Vol]107 mmol/PRbnfyv21-673AjlHdbpelMethodist Southlake HospitalComment on above:Performed By: #### UA #### [facility] ([id number]) [address] [address] [place] [address]NJ2 [Moles/Vol]21 mmol/OHii25-05SaiXcvnxdMartin Memorial Hospital Comment on above:Performed By: #### UA #### [facility] ([id number]) [address] [address] [place] [address]Wbyxyfgffn [Mass/Vol]2.23 mg/dLHigh0.60-1.30[facility] HospitalComment on above:Result Comment: METHOD TRACEABLE TO IDMS STANDARD Performed By: #### UA #### [facility] ([id number]) [address], [address] [place], [place] [address]FFN/1.73 sq M.predicted among non-blacks MDRD (S/P/Bld) [Vol rate/Area]31 mL/min/{1.73_m2}Low>59ProMethodist Southlake HospitalComment on above: Result Comment: Reported eGFR is based on the CKD-EPI 2020 equation that does not use a race coefficient.Performed By: #### UA #### [facility] ([id number]) [address], [address] [place], [place] [address]Bgpwnee [Mass/Vol]96 mg/dVMwjqfa05-96XeyXjdelpParkview Health Bryan Hospital Comment on above:Performed By: #### UA #### [facility] ([id number]) [address] [address] [place], [place] [address]Lurlyuspu [Mass/Vol]4.7 mg/dLNormal2.4-4.9ProMethodist Southlake HospitalComment on above:Performed By: #### UA #### [facility] ([id number]) [address] [address] [place], [place] [address]Hbyegexwe [Moles/Vol]4.4 mmol/LNormal3.5-5.0ProMethodist Southlake HospitalComment on above:Performed By: #### UA #### [facility] ([id number]) [address] [address] [place], [place] [address]Hshlnx [Moles/Vol]141 mmol/QNjntfr080-976YutPokrks Fremont HospitalComment on above:Performed By: #### UA #### [facility] ([id number]) [address] [address] [place], [place] [address]Fvnu nitrogen [Mass/Vol]28 mg/dLHigh5-27ProMethodist Southlake HospitalComment on above:Performed By: #### UA #### [facility] ([id number]) [address] [address] [place], [place] [address]AXXT ACIDon 00-59-5494Xodua [Mass/Vol]6.2 mg/dLNormal2.6-7.2 [facility] HospitalComment on above:Performed By: #### UA #### [facility] ([id number]) [address] [place] 14474BWQAHJWPKTbd 68-37-4228Ldwjsrpca Ql (U)NegativeNormalNEG Parkview Health Bryan HospitalComment on above:Performed By: #### UA #### [facility] ([id number]) [address], [address] [place], [place] [address]TXDNJ/HGBNegativeNormalNEGParkview Health Bryan HospitalComment on above:Performed By: #### UA #### [facility] ([id number]) [address], [address] [place], [place] [address]Byfkf (U)YELLOWNormalYELLOWParkview Health Bryan HospitalComment on above:Performed By: #### UA #### [facility] ([id number]) [address], [address] [place], [place] [address]Hdcuevt Ql (U)NegativeNormalNEGParkview Health Bryan HospitalComment on above:Performed By: #### UA #### [facility] ([id number]) [address], [address] [place], [place] [address]Ywjjujc casts LM Ql (Urine sed)4 /lpfHigh0-2PMartin Memorial HospitalComment on above:Performed By: #### UA #### [facility] ([id number]) [address], [address] [place], [place] [address]Zvtfztj Ql (U)NegativeNormalNEGParkview Health Bryan HospitalComment on above:Performed By: #### UA #### [facility] ([id number]) [address], [address] [place], [place] [address]Cyajvfnio esterase Test strip Ql (U)NegativeNormalNEGProMethodist Southlake HospitalComment on above:Performed By: #### UA #### [facility] ([id number]) [address] [place] [address], [address] [place], [place] [address]ZQDPXUHWTXARLJydtiexdOPNGLoaDelxde Fremont HospitalComment on above:Performed By: #### UA #### [facility] ([id number]) [address] [place] [address], [address] [place], [place] [address]Isxnhow Ql (U)NegativeNormalNEGParkview Health Bryan HospitalComment on above:Performed By: #### UA #### [facility] ([id number]) [address] [place] [address], [address] [place], [place] [address]hJ (U)6.0 [pH]Normal5.0-8.5PMartin Memorial HospitalComment on above:Performed By: #### UA #### [facility] ([id number]) [address] [place] [address], [address] [place], [place] [address]Udadhly Ql (U)TraceAbnormalNEGParkview Health Bryan HospitalComment on above:Performed By: #### UA #### [facility] ([id number]) [address] [place] [address], [address] [place], [place] [address]A.B.CELLS0 /hpfNormal0-5PMartin Memorial HospitalComment on above:Performed By: #### UA #### [facility] ([id number]) [address], [address] [place], [place] [address]Ryoqmjzr gravity (U) [Rel density]1.848Otmxaj3.003-1.035 [facility] Gardner SanitariumComment on above:Performed By: #### UA #### [facility] ([id number]) [address] [place], [place] [address]ZMXBSTRKMIILPFSibcktBGJYJErbKcokts Fremont HospitalComment on above:Performed By: #### UA #### [facility] ([id number]) [address], [address] [place], [place] [address]Anicvdzvjvbp (U) [Mass/Vol]mg/dLNormal<1.1PMartin Memorial HospitalComment on above:Performed By: #### UA #### [facility] ([id number]) [address], [address] [place], [place] [address]J.B.CELLS2 /hpfNormal0-5PMartin Memorial HospitalComment on above:Performed By: #### UA #### [facility] ([id number]) [address], [address] [place], [place] [address]JCGAXLE B12on 92-97-9195Pzffuclhc (Vitamin B12) [Mass/Vol]462 pg/eHUtglzl799-347TkoRbiryxMartin Memorial HospitalComment on above:Performed By: #### CBC, 2276-4, 1-8, 9, 2283-8, 52679-8, FEPR, 13022-1, LIVR, 08687-8, RENAL, 3084-1 #### [facility] ([id number]) [address], [address] [place], [place] [address]Ncowfqx D+Metabolites [Mass/Vol]on 77-34-2759RLNVTPM D 25 HYD TOT72.1 ng/dOXtcrnt28-207OacBkwkce Fremont HospitalComment on above:Result Comment: Vitamin D status 25 [place] Vitamin D Deficiency <20 ng/mL Insufficiency 20-29 ng/mL Sufficiency 30-100 ng/mL Toxicity >100 ng/mL NOTE: A pediatric reference range has not been established by the director of medical staff services of this kit. The [place] [employer] recommends a Vitamin D level of = or >20ng/mL in infants and children.Performed By: #### CBC, 2276-4, 2731-8, 2131-9, 2283-8, 15324-9, FEPR, 09715-4, LIVR, 52677-9, RENAL, 3084-1 #### [facility] ([id number]) [address] [place], [place] [address]Zvfzhs Visiton 07-65-4272Adzxzs-up [id number] CastilloKel 1955 M Date Provider Department Center 10/13/2024 271-SARAH TOLLIVER Family History Problem Relation Age of Onset Diabetes Mother Family Status - Relation Status Age at Mother Level of Service:[address] [place] OFFICE/OUTPATIENT ESTABLISHED MOD MDM 30 [facility] HospitalCNOVon 92-09-4250TPFJKgauio Visit (NEIND4) SAMIR CASTILLO ([id number]) 1955 M Date Time Provider Department 10/12/24 [...] Eun Trent DO 10/12/2024 2:47 PM Signed [facility] General Neurology Follow up/ Established patient visit Individuals who were included in, or assisted with the encounter were: Samir Castillo Eun Black DO Chief Complaint/Issues: Samir Castillo is a 69 year old male seen in the [facility] for General Neurology for: Memory loss [...] list. Holding a coffee (more content not included)...NormalOhiohealth [facility] CNOVon 05-25-5988JRFZGraeiv Visit (NPTU10) SAMIR CASTILLO ([id number]) 1955 M Date Time Provider Department 09/08/24 8:00 AM MISTY POLO NPTU10 During your visit today, we recorded the following information about you: Misty Polo, PhD 09/10/2024 4:35 PM Signed [facility] Department of Neurology Section of Neuropsychology Neuropsychological Evaluation Report CONFIDENTIAL Patient: Samir Castillo Date of : 1955 Referred by: Eun Black MD (Neurology) Education: 10 Handedness: R Language(s): Syriac Date of Evaluation: 09/08/2024 Mr. Castillo is [...] Problems with mother's /delivery: no Early SALES SUPPORT ENGINEER infection, high fever, significant childhood illness: no SCHOOL HISTORY: Years of education completed: 10; left school early because he did not like it. 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 One day will feel worried and next day will feel okay. Has been this way for a long time. Mental health treatment: He endorsed lo (more content not included)...Normal [facility] ClevelandLipid 1996 panelon 60-19-3153Biqhqnbgqca [Mass/Vol]142 mg/tCBod289 - 200 mg/dLNOMS HealthcareCholesterol in HDL [Mass/Vol]43 mg/dL39 - PINF mg/dLNOMS HealthcareComment on above: HDL <40 mg/dL - High Risk HDL > or = 40mg/dL- Desirable HDL >60 mg/dL - Negative Risk Cholesterol in HDL/Total Cholesterol [Mass ratio]3.3 {ratio}1.0 - 5.0[facility] HealthcareComment on above:PERFORMED AT [address],[place], [place] [address]Zhzbxauoqil in LDL [Mass/Vol]75 mg/dLNINF - 130 mg/dL [facility] HealthcareComment on above: LDL <100 mg/dL - Desirable LDL >160 mg/dL - High Risk Cholesterol in VLDL [Mass/Vol]24 mg/dL0 - 30 mg/dLJORDAN [facility]LEY [facility] HealthcareInterpretation and review of laboratory resultsAbnormalEllis Fischel Cancer CenterTriglyceride [Mass/Vol] 118 mg/dL27 - 150 mg/dLNOAscension Eagle River Memorial HospitalCholesterol [Mass/Vol]142 mg/uHNle580-643LvvGxattyMethodist Southlake HospitalComment on above:Performed By: #### 14373-5 #### [facility] ([id number]) [address] [place] [address], [address] [place], [place] [address]Cmsibddnrov in HDL [Mass/Vol]43 mg/dLNormal>39Parkview Health Bryan HospitalComment on above:Result Comment: HDL <40 mg/dL - High Risk HDL > or = 40mg/dL- Desirable HDL >60 mg/dL - Negative Risk Performed By: #### 12926-1 #### [facility] ([id number]) [address] [place] [address], [address] [place], [place] [address]Ufoltwjrwiq in LDL [Mass/Vol]75 mg/dLNormal<130ProMethodist Southlake HospitalComment on above:Result Comment: LDL <100 mg/dL - Desirable LDL >160 mg/dL - High Risk Performed By: #### 84625-0 #### [facility] ([id number]) [address], [address] [place], [place] [address]Xunxemnbedq in VLDL [Mass/Vol]24 mg/dLNormal0-30ProMethodist Southlake HospitalComment on above:Performed By: #### 64352-9 #### [facility] ([id number]) [address], [address] [place], [place] [address]ONZESGQNLEH:HDL3.5Neewsa1.0-5.0ProMethodist Southlake HospitalComment on above:Performed By: #### 69630-5 #### [facility] ([id number]) [address], [address] [place], [place] [address]Bqcjrhgkbpjy [Mass/Vol]118 mg/vFFnwlej32-512OmwPbywji Fremont HospitalComment on above:Performed By: #### 38166-8 #### [facility] ([id number]) [address], [address] [place], [place] [address]SO BRAIN WO IVCONon 02-71-9349ID BRAIN WO IVCON* * *Final Report* * [...] NO CT EVIDENCE OF ACUTE INTRACRANIAL PROCESS. Leave Manager: [facility] Transcribe Date/Time: May 12 2024 3:59P Dictated by : FIDEL DAVIDSON MD This examination was interpreted and the report reviewed and electronically signed by: FIDEL DAVIDSON MD on May 12 2024 4:07PM [facility] [id number]_IDCSIACNNTruesdale HospitalCT Head WO contraston 05-12-2024 IMPRESSION: NO CT EVIDENCE OF ACUTE INTRACRANIAL PROCESS. Leave Manager: [facility] Transcribe Date/Time: May 12 2024 3:59P Dictated by : FIDEL DAVIDSON MD This examination was interpreted and the report reviewed and electronically signed by: FIDEL DAVIDSON MD on May 12 2024 4:07PM [facility]* * *Final Report* * * [...] Localizer images: No additional findings. [facility] RADIOLOGYProvider, [facility] [place] - 05/12/2024 * * *Final Report* * [...] NO CT EVIDENCE OF ACUTE INTRACRANIAL PROCESS. Leave Manager: [facility] Transcribe Date/Time: May 12 2024 3:59P Dictated by : FIDEL DAVIDSON MD This examination was interpreted and the report reviewed and electronically signed by: FIDEL DAVIDSON MD on May 12 2024 4:07PM EST [facility] HospitalRadiology Study observation (narrative)[facility] Head WO contrastOrdered By: [facility] Provider on 48-31-9068Objnkpyzi ClinicCNOVon 73-48-5376WBNNZrzucd Visit (NEIND4) SAMIR CASTILLO ([id number]) 1955 M Date Time Provider Department 05/04/24 9:30 AM EUN TRENT NEIND4 During your visit today, we recorded the following information about you: Pulse Blood pressure Weight Height 57/minute 138/63 80.5 kg 1.676 m Eun Trent DO 05/04/2024 10:17 PM Signed [facility] General Neurology Follow up/ Established patient visit Individuals who were included in, or assisted with the encounter were: Samir Castillo Eun Black DO Chief Complaint/Issues: Samir Castillo is a 69 year old male seen in the [facility] for General Neurology for: Memory loss [...] over medications. No adjustment in 3 Has OPERATIONS FORESTER s He denies hallucinations. MOCA December 2021 [...] mouth twice daily. isos (more content not included)...NormalOhio [facility] SHOULD[facility] LEFT W/Oon 58-08-1590[place] [address] Magnetic Resonance Report Signed Patient: KEL CASTILLO Jr. MR#: [id number] : 1955 Acct:[id number] Age/Sex: 68 / M ADM Date: 09/05/23 Loc: MRI Attending Dr: Bimal Mcgowan M.D. Ordering Physician: Bimal Mcgowan M.D. Date of Service: 09/05/23 Procedure(s): MR shoulder LT wo con Accession Number(s): [id number] cc: Bimal cMgowan M.D.; Shaikh Krish Grimes [place] [id number] Patient Name: KEL CASTILLO MRN: [facility]:[id number] date: 1955 Sex: M Assigned Patient Location: MRI Current Patient Location: MRI Accession/Order Number: [id number] Exam Date: 09/05/2023 14:55 Report Date: 09/05/2023 [...] Rivero M.D. Signed By: 09/05/238 DD/ TD/TT: Leave Manager:TBHRadiology, Radiologist, - 09/05/2023 [place] [address] Magnetic Resonance Report Signed Patient: KEL CASTILLO Jr. MR#: [id number] : 1955 Acct:[id number] Age/Sex: 68 / M ADM Date: 09/05/23 Loc: MRI Attending Dr: Bimal Mcgowan M.D. Ordering Physician: Bimal Mcgowan M.D. Date of Service: 09/05/23 Procedure(s): MR shoulder LT wo con Accession Number(s): [id number] cc: Bimal Mcgowan M.D.; Shaikh Krish Grimes [place] [address] Patient Name: KEL CASTILLO MRN: [id number] date: 1955 Sex: M Assigned Patient Location: MRI Current Patient Location: MRI Accession/Order Number: [id number] Exam Date: 09/05/2023 14:55 Report Date: 09/05/2023 [...] Signed By: 09/05/23 1618 DD/ 14 TD/TT: Leave Manager: [facility]WIN HealthcareRadiology Study observation (narrative)[facility] SHOULDER LEFT W/OOrdered By: Radiologist Radiology on 58-84-8818[facility] Work Phone: XR Shoulder - left 2 [address] 12-25-8687Nuq [place] [address] XRay Report Signed Patient: KEL CASTILLO Jr. MR#: [id number] : 1955 Acct:[id number] Age/Sex: 68 / M ADM Date: 08/26/23 Loc: RAD Attending Dr: Bimal Mcgowan M.D. Ordering Physician: Bimal Mcgowan M.D. Date of Service: 08/26/23 Procedure(s): XR shoulder LT min 2V Accession Number(s): [id number] cc: Bimal Mcgowan M.D.; Shaikh Krish Grimes [address] [address] Patient Name: KEL CASTILLO MRN: [facility]:[id number] date: 1955 Sex: M Assigned Patient Location: [facility] Current Patient Location: [facility] Accession/Order Number: [id number] Exam Date: 08/26/2023 11:50 Report Date: 08/26/2023 [...] Signed By: 08/26/23 1517 DD/ 13 TD/TT: Leave Manager:REJIHRadiology, Radiologist, MD - 10/16/2023 The [place] [id number] XRay Report Signed Patient: KEL CASTILLO Jr. MR#: [id number] : 1955 Acct:[id number] Age/Sex: 68 / M ADM Date: 08/26/23 Loc: RAD Attending Dr: Bimal Mcgowan M.D. Ordering Physician: Bimal Mcgowan M.D. Date of Service: 08/26/23 Procedure(s): XR shoulder LT min 2V Accession Number(s): [id number] cc: Bimal Mcgowan M.D.; Shaikh Krish Grimes [place] [id number] Patient Name: KEL CASTILLO MRN: [id number] date: 1955 Sex: M Assigned Patient Location: RAD Current Patient Location: [facility] Accession/Order Number: [id number] Exam Date: 08/26/2023 11:50 Report Date: 08/26/2023 [...] Signed By: 08/26/23 1517 DD/ 13 TD/TT: Leave Manager: [facility] HOSPITALHolden HealthcareRadiology Study observation (narrative)[facility] HealthcareXR Shoulder - left 2 ViewsOrdered By: Radiologist Radiology on 77-06-0022GGNW Healthcare Work Phone: XR Shoulder - left 2 [address] 78-11-2609DzmSm[place], [place] [address] XRay Report Signed Patient: KEL CASTILLO Jr. MR#: [id number] : 1955 Acct:[id number] Age/Sex: 68 / M ADM Date: 07/29/23 Loc: RAD Attending Dr: Bimal Mcgowan M.D. Ordering Physician: Bimal Mcgowan M.D. Date of Service: 07/29/23 Procedure(s): XR shoulder LT min 2V Accession Number(s): [id number] cc: Bimal Mcgowan M.D.; Shaikh Krish Grimes The [address] [address] Patient Name: KEL CASTILLO MRN: [facility]:[id number] date: 1955 Sex: M Assigned Patient Location: RAD Current Patient Location: RAD Accession/Order Number: [id number] Exam Date: 07/29/2023 11:20 Report Date: 07/29/2023 [...] or dislocation. Glenohumeral relationship appears grossly unremarkable. Bqdv-ow-smdcndzu degenerative changes about the acromioclavicular joint. Soft tissues are grossly within normal limits. Postoperative sternotomy wires and clips are present. XR/XR shoulder LT min 2V IMPRESSION: Left shoulder study fails to demonstrate definite acute fracture or dislocation. Follow-up as needed. Electronically authenticated by: KEL JOSHUA Date: 07/29/2023 16:01 Dictated By: Kel Joshua M.D. Signed By: 07/29/23 1604 DD/ 1601 TD/TT: Leave Manager:TBHRadiology, Radiologist, MD - 07/29/2023 [place] [address] XRay Report Signed Patient: KEL CASTILLO Jr. MR#: [id number] : 1955 Acct:[id number] Age/Sex: 68 / M ADM Date: 07/29/23 Loc: RAD Attending Dr: Bimal Mcgowan M.D. Ordering Physician: Bimal Mcgowan M.D. Date of Service: 07/29/23 Procedure(s): XR shoulder LT min 2V Accession Number(s): [id number] cc: Bimal Mcgowan M.D.; Shaikh Krish Grimes [place] [address] Patient Name: KEL CASTILLO MRN: [facility]:[id number] date: 1955 Sex: M Assigned Patient Location: [facility] Current Patient Location: RAD Accession/Order Number: [id number] Exam Date: 07/29/2023 11:20 Report Date: 07/29/2023 [...] or dislocation. Glenohumeral relationship appears grossly unremarkable. Pezy-wo-vwaomdbs degenerative changes about the acromioclavicular joint. Soft tissues are grossly within normal limits. Postoperative sternotomy wires and clips are present. XR/XR shoulder LT min 2V IMPRESSION: Left shoulder study fails to demonstrate definite acute fracture or dislocation. Follow-up as needed. Electronically authenticated by: KEL JOSHUA Date: 07/29/2023 16:01 Dictated By: Kel Joshua M.D. Signed By: 07/29/23 1604 DD/ 1601 TD/TT: Leave Manager: NOMHolden HealthcareRadiology Study observation (narrative)NOMS HealthcareXR Shoulder - left 2 ViewsOrdered By: Radiologist Radiology on 77-04-7547SMXL [facility] Work Phone: ct abdomen pelvis wo conon 43-11-8639FV abdomen pelvis wo [facility] [place] [address] CT Scan Report Signed Patient: Kel Castillo Jr MR#: [id number] : 1955 Acct:[id number] Age/Sex: 67 / M ADM Date: 04/09/23 Loc: ER Room: Type: [facility] ER Attending Dr: Copies to: Lucy [...] Damien Negrete M.D.04/09/2023 2:28 PM Dictation Location: [place] [address] Transcribed By: [facility] 04/09/23 1428 Dictated By: Damien Negrete DO 04/09/23 1422 Signed By: 04/09/23 1428Van [facility] County HospitalComplete Blood Count Auto Diffon 12-66-5726Hufdutgyg (Bld) [#/Vol]0.1 10*3/uLNormal0.0-0.2FMercy Health St. Vincent Medical CenterComment on above:Result Comment: PERFORMED BY: [place] [address] PATHOLOGIST GRAPHIC PRE PRESS TRADES WORKER TROY SIGALA M.D.Performed By: #### CBC #### [place] [address] USABasophils/100 WBC (Bld)1.0 %Normal.Cleveland ClinicComment on above:Performed By: #### CBC #### [place] [address] USAEosinophils (Bld) [#/Vol]0.2 10*3/uLNormal0.0-0.45 [facility] ClinicComment on above:Performed By: #### CBC #### [place] [address] USAEosinophils/100 WBC (Bld)2.8 %Normal.C[facility] ClinicComment on above:Performed By: #### CBC #### [place] [address] USAErythrocyte distribution width (RBC) [Ratio]14.5 %Normal 12.0-14.8C[facility] ClinicComment on above:Performed By: #### CBC #### [place] [address] USAHematocrit (Bld) [Volume fraction]39.2 %Wtzxqb61.8-50.0 [facility] ClinicComment on above:Performed By: #### CBC #### [place] [address] USAHemoglobin (Bld) [Mass/Vol]13.0 g/tEQyfphl05.0-17.0 [facility] ClinicComment on above:Performed By: #### CBC #### [place] [address] USALymphocytes (Bld) [#/Vol]1.1 10*3/uLNormal1.00-4.8 [facility] ClinicComment on above:Performed By: #### CBC #### [place] [address] USALymphocytes/100 WBC (Bld)14.1 %Normal.C[facility] ClinicComment on above:Performed By: #### CBC #### [facility] [address] [place], [place] [address]H (RBC) [Entitic mass]30.4 vjBywaej59.5-35.2FMercy Health St. Vincent Medical CenterComment on above:Performed By: #### CBC #### [address]V (RBC) [Entitic vol]91.5 iQPctplm12.5-101C[facility] ClinicComment on above:Performed By: #### CBC #### [place] [address] USAMean Corpuscular HGB Conc33.2 g/wXDagxye16.5-35.6FMercy Health St. Vincent Medical CenterComment on above:Performed By: #### CBC #### [place] [address] USAMonocytes (Bld) [#/Vol]0.5 10*3/uLNormal0.0-0.8C[facility] ClinicComment on above:Performed By: #### CBC #### [place] [address] USAMonocytes/100 WBC (Bld)16.97 %Normal0.00-20.00C[facility] ClinicComment on above:Performed By: #### CBC #### [place] [address] USAMonocytes/100 WBC (Bld)6.6 %Normal.C[facility] ClinicComment on above:Performed By: #### CBC #### [place] [address] USANeutrophils (Bld) [#/Vol]5.9 10*3/uLNormal1.8-7.7FMercy Health St. Vincent Medical CenterComment on above:Performed By: #### CBC #### [place] [address] USANeutrophils/100 WBC (Bld)75.5 %Normal.C[facility] ClinicComment on above:Performed By: #### CBC #### [place] [address] USANRBC%0.0 /100{WBC}Normal0-0.5FMercy Health St. Vincent Medical CenterComment on above:Performed By: #### CBC #### [place] [address] USAPlatelet mean volume (Bld) [Entitic vol]7.5 fLNormal 6.6-10.1FMercy Health St. Vincent Medical CenterComment on above:Performed By: #### CBC #### [place] [address] USAPlatelets (Bld) [#/Vol]180 10*3/jFFcrhwg658-315QfvuagwevCleveland ClinicComment on above:Performed By: #### CBC #### [place] [address] USARBC (Bld) [#/Vol]4.29 10*6/uLNormal3.90-5.60C[facility] ClinicComment on above:Performed By: #### CBC #### [place] [address] USAWBC (Bld) [#/Vol]7.8 10*3/uLNormal4.1-10.5FMercy Health St. Vincent Medical CenterComment on above:Performed By: #### CBC #### [place] [address] USAComprehensive Metabolic Panelon 79-63-3003Cqyqovb [Mass/Vol]4.3 g/dLNormal3.5-5.7FMercy Health St. Vincent Medical CenterComment on above:Performed By: #### PTT, LIPASE, PT, CMP #### [place] [address] USAAlbumin/Globulin [Mass ratio]1.2 {ratio}NormalCleveland ClinicComment on above:Performed By: #### PTT, LIPASE, PT, CMP #### [facility] [address] [place] [address] USAALP [Catalytic activity/Vol]105 U/OSqhr01-285YrmkvqrwhCleveland ClinicComment on above:Performed By: #### PTT, LIPASE, PT, CMP #### [facility] [address] [place] [address] USAALT [Catalytic activity/Vol]61 U/LHigh7-52C[facility] ClinicComment on above:Performed By: #### PTT, LIPASE, PT, CMP #### [facility] [address] [place] [address] USAAnion gap [Moles/Vol]12.5 mmol/LNormal6.0-15.0Cleveland ClinicCommymichigan medical center [place] on above:Performed By: #### PTT, LIPASE, PT, CMP #### [facility] [address] [place] [address] USAAST [Catalytic activity/Vol]62 U/OFrre11-23GetkmzsgvCleveland ClinicComment on above:Performed By: #### PTT, LIPASE, PT, CMP #### [facility] [address] [place] [id number] USABilirubin [Mass/Vol]0.8 mg/dLNormal0.3-1.0Cleveland ClinicCommymichigan medical center [place]pena on above:Performed By: #### PTT, LIPASE, PT, CMP #### [facility] [address] [place] [address] USACalcium [Mass/Vol]9.0 mg/dLNormal8.6-10.3FMercy Health St. Vincent Medical CenterComment on above:Performed By: #### PTT, LIPASE, PT, CMP #### [facility] [address] [place] [address] USAChloride [Moles/Vol]107 mmol/JRqhnus05-055QbzesltoaCleveland ClinicComment on above:Performed By: #### PTT, LIPASE, PT, CMP #### [facility] [address] [place] [address] USACO2 [Moles/Vol]25.1 mmol/MIbfude77.0-31.0Cleveland ClinicComment on above:Performed By: #### PTT, LIPASE, PT, CMP #### [facility] [address] [place] [address] USACreatinine [Mass/Vol]1.76 mg/dLHigh0.70-1.30C[facility] ClinicComment on above:Performed By: #### PTT, LIPASE, PT, CMP #### [facility] [address] [place] [address] USACreatinine Clr Calc Akqtkjkx84.17NoFirelands Regional Medical CenterComment on above:Performed By: #### PTT, LIPASE, PT, CMP #### [facility] [address] [place] [address] USAGFR/1.73 sq M.predicted MDRD (S/P/Bld) [Vol rate/Area] 41.342 mL/min/{1.73_m2}[facility]ert County HospitalComment on above: Performed By: #### PTT, LIPASE, PT, CMP #### [facility] [address] [place] [address] USAGlobulin (S) [Mass/Vol]3.7 g/dLNoFirelands Regional Medical CenterComment on above:Performed By: #### PTT, LIPASE, PT, CMP #### [facility] [address] [place] [address] USAGlucose [Mass/Vol]89 mg/pHKexsxw49-311DqofftwzcCleveland ClinicComment on above:Result Comment: Random Glucose Reference Range is dependent on time and content of last meal. Glucose of more than 200 mg/dL in a nonstressed, ambulatory subject supports the diagnosis of Diabetes Mellitus. ADA recommended reference rangePerformed By: #### PTT, LIPASE, PT, CMP #### [facility] [address] [place] [address] USAPotassium [Moles/Vol]4.6 mmol/LNormal3.5-5.1FMercy Health St. Vincent Medical CenterComment on above:Performed By: #### PTT, LIPASE, PT, CMP #### [facility] [address] [place] [address] USAProtein [Mass/Vol]8.0 g/dLNormal6.4-8.9Cleveland ClinicComment on above:Performed By: #### PTT, LIPASE, PT, CMP #### [facility] [address] [place] [address] USASodium [Moles/Vol]140 mmol/JPitgwa747-860KwphsnfrgCleveland ClinicComment on above:Performed By: #### PTT, LIPASE, PT, CMP #### [facility] [address] [place] [address] USAUrea nitrogen [Mass/Vol]25 mg/dLNormal7-25Cleveland ClinicComment on above:Performed By: #### PTT, LIPASE, PT, CMP #### [facility] [address] [place] [address] USADipstick and Microscopicon [id number] (U)Cloudy Critically abnormalCleSalem Regional Medical CenterComment on above:Order Comment: Name Collection Type:: Clean-Voided MidstreamPerformed By: #### ADDONUAPLUS #### [facility] [address] [place] [address] USABacteria,UrineNone SeenNormalNone SeenCleveland ClinicComment on above:Order Comment: Name Collection Type:: Clean- Voided MidstreamPerformed By: #### ADDONUAPLUS #### [facility] [address] [place] [address] USABilirubin,UrineNegativeNormalNegativeCleveland ClinicComment on above:Order Comment: Name Collection Type:: Clean- Voided MidstreamPerformed By: #### ADDONUAPLUS #### [facility] [address] [place], [place] [id number] USAColor (U)YellowNormalYellowCleveland ClinicComment on above:Order Comment: Name Collection Type:: Clean-Voided MidstreamPerformed By: #### ADDONUAPLUS #### [facility] [address] [place] [address] USAGlucose Ql (U)NormalNormalNormalCleveland ClinicComment on above:Order Comment: Name Collection Type:: Clean-Voided MidstreamPerformed By: #### ADDONUAPLUS #### [place] [address] USAHyaline Casts,UrineNone SeenNormal0-8Cleveland ClinicComment on above:Order Comment: Name Collection Type:: Clean- Voided MidstreamResult Comment: PERFORMED BY: [place] [address] PATHOLOGIST GRAPHIC PRE PRESS TRADES WORKER TROY SIGALA M.D.Performed By: #### ADDONUAPLUS #### [place] [address] USAKetones Ql (U)NegativeNormalNegTrinity Health System Twin City Medical CenterComment on above:Order Comment: Name Collection Type:: Clean- Voided MidstreamPerformed By: #### ADDONUAPLUS #### [place] [address] USALeukocyte esterase Test strip Ql (U)NegativeNormalNegative Cleveland ClinicComment on above:Order Comment: Name Collection Type:: Clean-Voided MidstreamPerformed By: #### ADDONUAPLUS #### [place] [address] USANitrite,UrineNegativeNormidNegTrinity Health System Twin City Medical CenterComment on above:Order Comment: Name Collection Type:: Clean- Voided MidstreamPerformed By: #### ADDONUAPLUS #### [place] [id number] USAOccult Blood,UrineNegativeNormalNegTrinity Health System Twin City Medical CenterComment on above:Order Comment: Name Collection Type:: Clean- Voided MidstreamResult Comment: PERFORMED BY: [place] [address] PATHOLOGIST GRAPHIC PRE PRESS TRADES WORKER TROY SIGALA M.D.Performed By: #### ADDONUAPLUS #### [facility] [address] [place] [address] USApH (U)5.5 [pH]Normal5.0-9.0Cleveland ClinicComment on above:Order Comment: Name Collection Type:: Clean-Voided MidstreamPerformed By: #### ADDONUAPLUS #### [place] [address] USAProtein,UrineNegativeNormalNegativeCleveland ClinicComment on above:Order Comment: Name Collection Type:: Clean- Voided MidstreamPerformed By: #### ADDONUAPLUS #### [place] [address] USARBC LM.HPF (Urine sed) [#/Area]0 /[HPF]Normal0-[address] [place], [place] [address]Comment on above:Order Comment: Name Collection Type:: Clean-Voided MidstreamPerformed By: #### ADDONUAPLUS #### [place] [address] USASpecificy Charleston,Urine1.059Msbatr4.001-1.030Cleveland ClinicComment on above:Order Comment: Name Collection Type:: Clean-Voided MidstreamPerformed By: #### ADDONUAPLUS #### [place] [address] USASquamous Epithelial Cell,UrineNone SeenNormal[address] [place], [place] [address]Comment on above:Order Comment: Name Collection Type:: Clean-Voided MidstreamPerformed By: #### ADDONUAPLUS #### [place] [address] USAUrobilinogen,UrineNormalNormalNormalCleveland ClinicComment on above:Order Comment: Name Collection Type:: Clean- Voided MidstreamPerformed By: #### ADDONUAPLUS #### [place] [address] USAWBC LM.HPF (Urine sed) [#/Area]0 /[HPF]Normal0-4FMercy Health St. Vincent Medical CenterComment on above:Order Comment: Name Collection Type:: Clean-Voided MidstreamPerformed By: #### ADDONUAPLUS #### [address] [address] USALipaseon [id number] [Catalytic activity/Vol]92.0 U/L High11.0-82.0Cleveland ClinicComment on above:Result Comment: PERFORMED BY: [place] [address] PATHOLOGIST GRAPHIC PRE PRESS TRADES WORKER TROY SIGALA M.D.Performed By: #### PTT, LIPASE, PT, CMP #### [place] [id number] USAPartial Thromboplastin Timeon [id number] Coag (Bld) [Time]30.9 cMvnmyw66.1-36.5FMercy Health St. Vincent Medical CenterComment on above: Result Comment: PERFORMED BY: [place] [address] PATHOLOGIST GRAPHIC PRE PRESS TRADES WORKER TROY SIGALA M.D.Performed By: #### PTT, LIPASE, PT, CMP #### [place] [id number] USAProthrombin Time INRon [id number] Coag (PPP) [Relative time]1.0 {INR}NormalCleveland ClinicComment on above:Result Comment: INR Therapeutic Range A) [...] By: #### PTT, LIPASE, PT, CMP #### [place] [id number] USAPT Coag (PPP) [Time]11.9 sNormal9.0-12.9Cleveland ClinicComment on above:Performed By: #### PTT, LIPASE, PT, CMP #### [place] [id number] USACBC AUTO DIFFon [id number] #0.1 103/ulNormal0.0-0.1The [facility] Community HospitalComment on above:Performed By: #### CBC #### [facility] [address] [place] [address] Dr. Hattie NewsomeBasophils/100 WBC (Bld)0.8 %Normal0.2-2.0[facility] Comment on above:Performed By: #### CBC #### [facility] [address] [place] [address] Dr. Hattie Duarte #0.3 103/ulNormal0.0-0.7The [facility] Community HospitalComment on above: Performed By: #### CBC #### [facility] [address] [place] [address] Dr. Hattie Dongosinophils/100 WBC (Bld)3.2 %Normal0.9-7.0[facility] Comment on above:Performed By: #### CBC #### [facility] [address] [place] [address] Dr. Hattie Funezthrocyte distribution width (RBC) [Ratio]14.3 %Eqpzqd61.0-15.0 [facility] HospitalComment on above:Performed By: #### CBC #### [facility] [address] [place] [address] Dr. Hattie NewsomeHematocrit (Bld) [Volume fraction]39.7 %Critically low42.0-54.0 The [facility] HospitalComment on above:Performed By: #### CBC #### [facility] [address] [place] [address] Dr. Hattie NewsomeHemoglobin (Bld) [Mass/Vol]13.0 g/dLCritically low14.0-18.0The [facility] HospitalComment on above:Performed By: #### CBC #### [facility] [address] [place] [address] Dr. Hattie Max #0.06 10e3/ulCritically high0.00-0.03The [facility] Comment on above:Performed By: #### CBC #### [facility] [address] [place] [address] [address] Hattie Max %0.8 %Critically high0.0-0.5The [facility] HospitalComment on above:Performed By: #### CBC #### [facility] [address] [place] [address] Dr. Hattie Priest #1.3 103/ulNormal1.2-3.8The [facility] HospitalComment on above:Performed By: #### CBC #### [facility] [address] [place] [address] Dr. Hattie Daleyhocytes/100 WBC (Bld)16.8 %Critically low20.5-60.0The [facility] HospitalComment on above:Performed By: #### CBC #### [facility] [address] [place] [address] Dr. Hattie BorreroUAL DIFF REQNONormalThe [facility] HospitalComment on above: Performed By: #### CBC #### [facility] [address] [place] [address] Dr. Hattie Jessica (RBC) [Entitic mass]30.5 utIqwfji83.9-34.0The [facility] HospitalComment on above:Performed By: #### CBC #### [facility] [address] [place] [address] Dr. Hattie Jessica (RBC) [Mass/Vol]32.7 g/zZWmenwp60.9-35.2The [facility] HospitalComment on above:Performed By: #### CBC #### [facility] [address] [place] [address] Dr. Hattie Jessica (RBC) [Entitic vol]93.2 aQCppnsl39.0-94.0The [facility] HospitalComment on above:Performed By: #### CBC #### [facility] [address] [place] [address] Dr. Hattie Jeff #0.5 103/ulNormal0.3-0.8The [facility] HospitalComment on above:Performed By: #### CBC #### [facility] [address] [place] [address] [address] Hattie Learyocytes/100 WBC (Bld)7.0 %Normal1.7-12.0The [facility] Comment on above:Performed By: #### CBC #### [facility] [address] [place] [address] [address] Hattie SalgadoUT #5.5 103/ulNormal1.4-6.5The [facility] HospitalComment on above:Performed By: #### CBC #### [facility] [address] [place] [address] Dr. Hattie Salgadoutrophils/100 WBC (Bld)71.4 %Iikvdp25.0-75.0The [facility] HospitalComment on above:Performed By: #### CBC #### [facility] [address] [place] [address] Dr. Hattie NewsomePlatelet mean volume (Bld) [Entitic vol]9.4 fLCritically low 9.5-13.5The [facility] HospitalComment on above:Performed By: #### CBC #### [facility] [address] [place] [address] Dr. Hattie NewsomePLT169 103/jfAcjmoz518-478Yru [facility] HospitalComment on above: Performed By: #### CBC #### [facility] [address] [place] [address] Dr. Hattie NewsomeRBC4.26 106/ulCritically low4.70-6.10The [facility] HospitalComment on above:Performed By: #### CBC #### [facility] [address] [place] [address] Dr. Hattie NewsomeWBC7.7 103/ulNormal4.0-11.0The [facility] HospitalComment on above: Performed By: #### CBC #### [facility] [address] [place] [address] Dr. Hattie NewsomeLIPID PROFILEon [id number]-HDL RATIO NORMSEE BELOWChildren's Hospital for RehabilitationComment on above:Result Comment: 3.3 - 4.4 LOW RISK 4.4 - 7.1 AVERAGE RISK 7.1 - 11.0 MODERATE RISK >11.0 HIGH RISKPerformed By: #### LIPID #### [facility] [address] [place] [address] Dr. Hattie NewsomeCholesterol [Mass/Vol]131 mg/dLNormal<=200[facility] Comment on above:Performed By: #### LIPID #### [facility] [address] [place] [address] Dr. Hattie NewsomeCholesterol in HDL [Mass/Vol]40 mg/eOIurotx76-30TcqMarietta Memorial HospitalComment on above:Performed By: #### LIPID #### [facility] [address] [place] [address] Dr. Hattie NewsomeCholesterol in LDL [Mass/Vol]64.6 mg/dLChildren's Hospital for RehabilitationComment on above:Performed By: #### LIPID #### [facility] [address] [place] [address] Dr. Hattie Dodgeesterthai.total/Cholesterol in HDL [Mass ratio]3.3 {ratio} NormalMarietta Memorial HospitalComment on above:Performed By: #### LIPID #### [facility] [address] [place] [address] Dr. Hattie Hemphill NORMAL> or = 60 mg/dl - LOW CARDIOVASCULAR RISK <40 mg/dl - HIGH CARDIOVASCULAR RISKChildren's Hospital for RehabilitationComment on above:Performed By: #### LIPID #### [facility] [address] [place] [address] Dr. Hattie NewsomeLDL CALC NORMALSEE BELOWChildren's Hospital for RehabilitationComment on above:Result Comment: <100 mg/dl OPTIMAL 100 - 129 mg/dl NEAR OR ABOVE OPTIMAL 130 - 159 mg/dl BORDERLINE HIGH 160 - 189 mg/dl HIGH >190 mg/dl VERY HIGH Performed By: #### LIPID #### [facility] [address] [place] [address] Dr. Hattie NewsomeTriglyceride [Mass/Vol]132 mg/dLNormal<=150[facility] Comment on above:Performed By: #### LIPID #### [facility] [address] [place] [address] Dr. Hattie NewsomeVLDL CALC26.4 mg/dLNoAvita Health SystemComment on above: Performed By: #### LIPID #### [facility] [address] [place] [address] Dr. Hattie NewsomePARATHYROID HORMONE- RELATED PEPTIDEon [id number] (PTH- Related Peptide)<2.0NoAvita Health SystemComment on above:Result Comment: This test was developed and its performance characteristics determined by [employer]. It has not been cleared or approved [...] contact the laboratory.Performed By: #### PTHP #### [facility] [address] [place] [address] Dr. Hattie NewsomeCBC AUTO DIFFon [id number] #0.1 103/ulNormal0.0-0.1[facility] HospitalComment on above:Performed By: #### URIC, CMP, MG #### [facility] [address] [place] [address] Dr. Hattie NewsomeBasophils/100 WBC (Bld)0.9 %Normal0.2-2.0[facility] Comment on above:Performed By: #### URIC, CMP, MG #### [facility] [address] [place] [address] Dr. Hattie Duarte #0.2 103/ulNormal0.0-0.7The [facility] HospitalComment on above: Performed By: #### URIC, CMP, MG #### [facility] [address] [place] [address] Dr. Hattie Dongosinophils/100 WBC (Bld)3.4 %Normal0.9-7.0The [facility] Comment on above:Performed By: #### URIC, CMP, MG #### [facility] [address] [place] [address] Dr. Hattie Dongrythrocyte distribution width (RBC) [Ratio]14.5 %Dxijxt33.0-15.0 [facility] HospitalComment on above:Performed By: #### URIC, CMP, MG #### [facility] [address] [place] [address] Dr. Hattie NewsomeHematocrit (Bld) [Volume fraction]40.1 %Critically low42.0-54.0 The [facility] HospitalComment on above:Performed By: #### URIC, CMP, MG #### [facility] [address] [place] [address] Dr. Hattie NewsomeHemoglobin (Bld) [Mass/Vol]13.6 g/dLCritically low14.0-18.0The [facility] HospitalComment on above:Performed By: #### URIC, CMP, MG #### [facility] [address] [place] [address] Dr. Hattie Max #0.04 10e3/ulCritically high0.00-0.03[facility] Comment on above:Performed By: #### URIC, CMP, MG #### [facility] [address] [place] [address] Dr. Hattie Max %0.6 %Critically high0.0-0.5The [facility] HospitalComment on above:Performed By: #### URIC, CMP, MG #### [facility] [address] [place] [address] Dr. Hattie Priest #0.9 103/ulCritically low1.2-3.8The [facility] Comment on above:Performed By: #### URIC, CMP, MG #### [facility] [address] [place] [address] Dr. Hattie Mendiolamphocytes/100 WBC (Bld)13.1 %Critically low20.5-60.0[facility] HospitalComment on above:Performed By: #### URIC, CMP, MG #### [facility] [address] [place] [address] [address] Hattie Chanel DIFF REQNONormalThe [facility] HospitalComment on above: Performed By: #### URIC, CMP, MG #### [facility] [address] [place] [address] Dr. Hattie Jessica (RBC) [Entitic mass]30.9 laLiknyh08.9-34.0The [facility] HospitalComment on above:Performed By: #### URIC, CMP, MG #### [facility] [address] [place] [address] Dr. Hattie Jessica (RBC) [Mass/Vol]33.9 g/sCKtztgz22.9-35.2The [facility] HospitalComment on above:Performed By: #### URIC, CMP, MG #### [facility] [address] [place] [address] Dr. Hattie Jessica (RBC) [Entitic vol]91.1 wCLwcecg42.0-94.0The [facility] HospitalComment on above:Performed By: #### URIC, CMP, MG #### [facility] [address] [place] [address] Dr. Hattie Jeff #0.3 103/ulNormal0.3-0.8The [facility] HospitalComment on above:Performed By: #### URIC, CMP, MG #### [facility] [address] [place] [address] Dr. Hattie Learyocytes/100 WBC (Bld)5.1 %Normal1.7-12.0The [facility] Comment on above:Performed By: #### URIC, CMP, MG #### [facility] [address] [place] [address] Dr. Hattie Choe #5.0 103/ulNormal1.4-6.5The [facility] HospitalComment on above:Performed By: #### URIC, CMP, MG #### [facility] [address] [place] [address] Dr. Hattie Salgadoutrophils/100 WBC (Bld)76.9 %Critically high43.0-75.0The [facility] HospitalComment on above:Performed By: #### URIC, CMP, MG #### [facility] [address] [place] [address] Dr. Hattie Walker mean volume (Bld) [Entitic vol]9.0 fLCritically low 9.5-13.5The [facility] HospitalComment on above:Performed By: #### URIC, CMP, MG #### [facility] [address] [place] [address] Dr. Hattie NewsomePLT160 103/kbZjtvtf376-337Kzw [facility] HospitalComment on above: Performed By: #### URIC, CMP, MG #### [facility] [address] [place] [address] Dr. Hattie NewsomeRBC4.40 106/ulCritically low4.70-6.10The [facility] on above:Performed By: #### URIC, CMP, MG #### [facility] [address] [place] [address] Dr. Hattie NewsomeWBC6.5 103/ulNormal4.0-11.0The [facility] on above: Performed By: #### URIC, CMP, MG #### [facility] [address] [place] [address] Dr. Hattie NewsomeMAGNESIUMon 41-62-1861Pacpmsetf [Mass/Vol]1.8 mg/dLNormal1.8-2.4 The [facility] HospitalCommymichigan medical center alpena on above:Performed By: #### URIC, CMP, MG #### [facility] [address] [place] [address] Dr. Hattie NewsomePROF 14(COMP METB)on [id number] [Mass/Vol]3.9 g/dLNormal 3.4-5.0The [facility] HospitalComment on above:Performed By: #### URIC, CMP, MG #### [facility] [address] [place] [address] Dr. Hattie NewsomeAlbumin/Globulin [Mass ratio]1.0 {ratio}NormalThe Altoona HospitalComment on above:Performed By: #### URIC, CMP, MG #### [facility] [address] [place] [address] [address] Hattie Govea [Catalytic activity/Vol]136 U/LCritically odqk75-833Zsm [facility] HospitalComment on above:Performed By: #### URIC, CMP, MG #### [facility] [address] [place] [address] Dr. Hattie Mejia [Catalytic activity/Vol]122 U/LCritically sfpl82-29Gku [facility] HospitalComment on above:Performed By: #### URIC, CMP, MG #### [facility] [address] [place] [address] Dr. Hattie Lugoon gap [Moles/Vol]12.4 mmol/LNormalThe [facility] Comment on above:Performed By: #### URIC, CMP, MG #### [facility] [address] [place] [address] Dr. Hattie He [Catalytic activity/Vol]72 U/LCritically vfdr65-28Nqc [facility] on above:Performed By: #### URIC, CMP, MG #### [facility] [address] [place] [address] Dr. Hattie NewsomeBilirubin [Mass/Vol]0.5 mg/dLNormal0.2-1.0[facility] Comment on above:Performed By: #### URIC, CMP, MG #### [facility] [address] [place] [address] Dr. Hattie NewsomeCalcium [Mass/Vol]9.1 mg/dLNormal8.5-10.1[facility] Comment on above:Performed By: #### URIC, CMP, MG #### [facility] [address] [place] [address] Dr. Hattie NewsomeChloride [Moles/Vol]106 mmol/UKrostb12-018BpgMarietta Memorial Hospital Comment on above:Performed By: #### URIC, CMP, MG #### [facility] [address] [place] [address] Dr. Yilan ChangCO2 [Moles/Vol]25.9 mmol/PTuxgdz23.0-32.0The [facility] Comment on above:Performed By: #### URIC, CMP, MG #### [facility] [address] [place] [address] Dr. Hattie NewsomeCreatinine [Mass/Vol]1.54 mg/dLCritically high0.70-1.30The [facility] HospitalComment on above:Performed By: #### URIC, CMP, MG #### [facility] [address] [place] [address] Dr. Kuhn ChangEGFR-AF ETVITBRO54 mL/min/1.54a0Zgeasrzizg low>=60The [facility] HospitalComment on above:Performed By: #### URIC, CMP, MG #### [facility] [address] [place] [address] Dr. Hattie DongGFR-NON AF VOXPMSZM27 mL/min/1.44b7Azgfcnytms low>=60The [facility] HospitalComment on above:Performed By: #### URIC, CMP, MG #### [facility] [address] [place] [address] Dr. Hattie NewsomeGlobulin (S) [Mass/Vol]4.0 g/dLNormalThe [facility] HospitalComment on above:Performed By: #### URIC, CMP, MG #### [facility] [address] [place] [address] Dr. Hattie NewsomeGlucose [Mass/Vol]104 mg/lNPsxmwc42-306MoaMarietta Memorial Hospital Comment on above:Performed By: #### URIC, CMP, MG #### [facility] [address] [place] [address] Dr. Hattie NewsomePotassium [Moles/Vol]4.3 mmol/LNormal3.5-5.1The [facility] Comment on above:Performed By: #### URIC, CMP, MG #### [facility] [address] [place] [address] Dr. Hattie NewsomeProtein [Mass/Vol]7.9 g/dLNormal6.4-8.2The [facility] Comment on above:Performed By: #### URIC, CMP, MG #### [facility] [address] [address] [address] Hattie Galeanaum [Moles/Vol]140 mmol/LCwyozw692-590Jej [facility] Comment on above:Performed By: #### URIC, CMP, MG #### [facility] [address] [address] [address] Hattie Murguia nitrogen [Mass/Vol]14.0 mg/dLNormal7.0-18.0The [facility] HospitalComment on above:Performed By: #### URIC, CMP, MG #### [facility] [address] [address] [address] Hattie Murguia nitrogen/Creatinine [Mass ratio]9.1 mg/mgNormalThe [facility] HospitalComment on above:Performed By: #### URIC, CMP, MG #### [facility] [address] [place] [address] Dr. Hattie DONATOon 17-24-8971Dsguomtpw Ql (U)NegativeNormalNEGATIVEMarietta Memorial HospitalComment on above:Performed By: #### UA #### [facility] [address] [place] [address] Dr. Hattie Shah (U)CLEARNormalCLEARThe [facility] HospitalComment on above: Performed By: #### UA #### [facility] [address] [place] [address] Dr. Hattie Valera (U)YELLOWNormalYELLOWMarietta Memorial HospitalComment on above: Performed By: #### UA #### [facility] [address] [place] [address] Dr. Hattie NewsomeGlucose Ql (U)NegativeNormalNEGATIVEMarietta Memorial HospitalComment on above:Performed By: #### UA #### [facility] [address] [place] [address] Dr. Hattie NewsomeHemoglobin Ql (U)NegativeNormalNEGOur Lady of Mercy Hospital Comment on above:Performed By: #### UA #### [facility] [address] [place] [address] Dr. Hattie Goodwin Ql (U)NegativeNormalNEGATIVEThe [facility] HospitalComment on above:Performed By: #### UA #### [facility] [address] [place] [address] Dr. Hattie NewsomeLEUKOCYTESNegativeNormalNEGATIVEThe [facility] HospitalComment on above:Performed By: #### UA #### [facility] [address] [place] [address] Dr. Hattie Kincaidtrprem Ql (U)NegativeNormalNEGATIVEThe [facility] HospitalComment on above:Performed By: #### UA #### [facility] [address] [place] [address] Dr. Hattie NewsomepH (U)5.5 [pH]Normal5-9The [facility] HospitalComment on above: Performed By: #### UA #### [facility] Laboratory [address] [place] [address] Dr. Hattie NewsomeSPEC GRAVITY>=1.623Jgzjdcnb3.005-<=1.025[facility] Comment on above:Performed By: #### UA #### [facility] [address] [place] [address] Dr. Hattie Prado PROTEINNegativeNormalNEGATIVE/ TRACEThe [facility] Comment on above:Performed By: #### UA #### [facility] [address] [place] [address] Dr. Hattie Phillipbilinogen Qn (U)1.0 {Xavier'U}/dLNormal0.2 - 1.0The [facility] HospitalComment on above:Performed By: #### UA #### [facility] [address] [place] [address] Dr. Hattie NewsomeURIC ACID SERUMon 75-53-9924Ugqnn [Mass/Vol]6.8 mg/dLNormal 3.5-7.2The [facility] HospitalComment on above:Performed By: #### URIC, CMP, MG #### [facility] [address] [place] [address] Dr. Hattie Lauren T PROTEIN CREAT RATIOon 70-29-4008Unnmnvp (U) [Mass/Vol] 27.5 mg/dLCritically high<=12.0[facility] HospitalComment on above:Performed By: #### URTPCR #### [facility] [address] [place] [address] Dr. Hattie Waldrop PROT CREAT RAT0.15NormalMarietta Memorial HospitalComment on above: Performed By: #### URTPCR #### [facility] [address] [place] [address] Dr. Hattie Lauren JIAWS176.29 mg/zUWwvmdf65.00-300.00[facility] Comment on above:Performed By: #### URTPCR #### [facility] [address] [place] [address] Dr. Hattie NewsomeVITAMIN D 25 OHon [id number] D 25-OH81.5 ng/mLNormalMarietta Memorial HospitalComment on above:Performed By: #### VITAD #### [facility] [address] [place] [address] Dr. Hattie Beaulieu D RANGESSEE BELOWChildren's Hospital for RehabilitationComment on above: Result Comment: <20 ng/mL Vit D deficient 20 - <30 ng/mL Vit D insufficient 30 - 100 ng/mL Vit D sufficient >100 ng/mL Potential ToxicityPerformed By: #### VITAD #### [facility] [address] [place] [address] Dr. Hattie DongCHOCARDIJamie M/2D COMPLETEon 05-55-1948TYARXBTVPZ M/2D COMPLETE Patient: KEL CASTILLO Exam Date: 02/21/2022 : 1955 Gender:M Ordering : DR SARAH TOLLIVER M.D. Admission #: [id number] Family : Order #: [id number] CLICK HERE TO VIEW EXAM ECHOCARDIOGRAM REPORT [...] by: Tio Yepez M.D. on 02/21/2022 at 16:31[facility] for RehabilitationNo Panel Informationon 11-09-9686Mfdlocaxx ClinicBASIC METABOLIC PANELon 67-11-8165Spdxnkz [Mass/Vol]9.2 mg/dLNormal8.6-10.3The [facility] HospitalComment on above:Order Comment: No: Do not add to previous draw Performed By: #### 64215, 88799 #### [facility] [address] [place] [address], USAChloride [Moles/Vol]108 mmol/WZtxw63-212Udn [facility] HospitalComment on above:Order Comment: No: Do not add to previous drawPerformed By: #### 36278, 96332 #### [facility] [address] [place] [address], USACO2 [Moles/Vol]26 mmol/TGbgjpf99-93Tdk [facility] HospitalComment on above:Order Comment: No: Do not add to previous draw Performed By: #### 79484, 68696 #### [facility] [address] [place] [address], USACreatinine [Mass/Vol]1.64 mg/dLHigh0.70-1.30The [facility] HospitalComment on above:Order Comment: No: Do not add to previous drawPerformed By: #### 16446, 57831 #### [facility] [address] [place] [address], USAGFR/1.73 sq M predicted among blacks MDRD (S/P/Bld) [Vol rate/Area]51 ml/min/1.73sq mAbnormal>60The [facility] Comment on above:Order Comment: No: Do not add to previous drawPerformed By: #### 27532, 36081 #### [facility] [address] [place] [address], USAGFR/1.73 sq M predicted among non-blacks MDRD (S/P/Bld) [Vol rate/Area]42 ml/min/1.73sq mAbnormal>60The [facility] HospitalComment on above:Order Comment: No: Do not add to previous drawPerformed By: #### 44444, 71844 #### [facility] [address] [place] [address], USAGlucose [Mass/Vol]100 mg/xUPfkwkj06-741Dnn [facility] HospitalComment on above:Order Comment: No: Do not add to previous drawPerformed By: #### 32119, 60275 #### [facility] [address] [place] [address], USAPotassium [Moles/Vol]4.5 mmol/LNormal3.5-5.1The [facility] HospitalComment on above:Order Comment: No: Do not add to previous drawPerformed By: #### 23213, 19393 #### [facility] [address] [facility] [place] [address], USASodium [Moles/Vol]139 mmol/RWfjqne950-657Wud [facility] HospitalComment on above:Order Comment: No: Do not add to previous drawPerformed By: #### 05855, 04047 #### [facility] [address] [facility] [place] [address], USAUrea nitrogen [Mass/Vol]15 mg/dLNormal7-25The [facility] HospitalComment on above:Order Comment: No: Do not add to previous drawPerformed By: #### 29628, 41539 #### [facility] [address] [facility] [place] [address], USACBC W/DIFFon 76-38-9523XDB BASOPHILS0.1 10*3/uLNormal 0.0-0.2The [facility] HospitalComment on above:Order Comment: No: Do not add to previous drawPerformed By: #### 74979, 86428 #### [facility] [address] [place] [address], USAABS IMM GRANS0.1 10*3/uLNormal0.0-0.2The [facility] HospitalComment on above:Order Comment: No: Do not add to previous drawPerformed By: #### 86119, 80070 #### [facility] [address] [facility] [place] [address], USAABS NEUTROPHILS5.1 10*3/uLNormal1.6-7.6The [facility] HospitalComment on above:Order Comment: No: Do not add to previous drawPerformed By: #### 46576, 47956 #### [facility] [address] [place] [address], USABasophils/100 WBC (Bld)0.8 %Normal0.0-1.0The [facility] HospitalComment on above:Order Comment: No: Do not add to previous drawPerformed By: #### 02442, 20347 #### [facility] [address] [place] [address], USAEosinophils (Bld) [#/Vol]0.3 10*3/uLNormal0.0-0.5The [facility] HospitalComment on above:Order Comment: No: Do not add to previous drawPerformed By: #### 71790, 03246 #### [facility] [address] [place] [address], USAEosinophils/100 WBC (Bld)3.9 %Normal0.0-6.0The [facility] HospitalComment on above:Order Comment: No: Do not add to previous drawPerformed By: #### 09350, 67101 #### [facility] [address] [place] [address], USAErythrocyte distribution width (RBC) [Ratio]14.3 %Normal 11.5-15.0The [facility] HospitalComment on above:Order Comment: No: Do not add to previous drawPerformed By: #### 62710, 29435 #### [facility] [address] [place] [address], USAHematocrit (Bld) [Volume fraction]39.0 %Ysvqab89.0-50.0The [facility] HospitalComment on above:Order Comment: No: Do not add to previous drawPerformed By: #### 57846, 73379 #### [facility] [address] [place] [address], USAHemoglobin (Bld) [Mass/Vol]12.3 g/dLLow13.0-17.0The [facility] HospitalComment on above:Order Comment: No: Do not add to previous drawPerformed By: #### 61333, 01688 #### [facility] [address] [place] [address], USAIMMATURE GRANS0.8 %Normal0.0-1.0The [facility] HospitalComment on above:Order Comment: No: Do not add to previous draw Performed By: #### 40759, 39842 #### [facility] [address] [place] [address], USALymphocytes (Bld) [#/Vol]1.2 10*3/uLNormal1.2-4.0The [facility] HospitalComment on above:Order Comment: No: Do not add to previous drawPerformed By: #### 95066, 20743 #### [facility] [address] [place] [id number], USALymphocytes/100 WBC (Bld)16.1 %Low20.0-45.0The [facility] HospitalComment on above:Order Comment: No: Do not add to previous drawPerformed By: #### 14456, 66131 #### [facility] [address] [place] [address], [facility] (RBC) [Entitic mass]29.9 qiWaplur68.0-33.0The [facility] HospitalComment on above:Order Comment: No: Do not add to previous drawPerformed By: #### 12586, 48882 #### [facility] [address] [place] [address], [facility] (RBC) [Mass/Vol]31.5 g/dLLow32.0-35.0The [facility] HospitalComment on above:Order Comment: No: Do not add to previous drawPerformed By: #### 06787, 55190 #### [facility] [address] [place] [address], [facility] (RBC) [Entitic vol]94.9 oNKspgqw67.0-98.0The [facility] HospitalComment on above:Order Comment: No: Do not add to previous drawPerformed By: #### 76396, 87703 #### [facility] [address] [place] [address], USAMonocytes (Bld) [#/Vol]0.5 10*3/uLNormal0.1-1.0The [facility] HospitalComment on above:Order Comment: No: Do not add to previous drawPerformed By: #### 29830, 40226 #### [facility] [address] [place] [address], USAMONOS6.3 %Normal5.0-12.0The [facility] HospitalComment on above:Order Comment: No: Do not add to previous drawPerformed By: #### 97595, 82400 #### [facility] [address] [place] [address], USANeutrophils/100 WBC (Bld)72.1 %High40.0-72.0The [facility] HospitalComment on above:Order Comment: No: Do not add to previous drawPerformed By: #### 31181, 69743 #### [facility] [address] [place] [address], USANucleated RBC/100 WBC (Bld) [Ratio]0 %Normal0-0The [facility] HospitalComment on above:Order Comment: No: Do not add to previous drawPerformed By: #### 43901, 53457 #### [facility] [address] [address], USAPLAT NSY371 10*3/lYWqjhaq376-055Qyg [facility] HospitalComment on above:Order Comment: No: Do not add to previous draw Performed By: #### 95982, 57555 #### [facility] [address] [place] [address], USARBC (Bld) [#/Vol]4.11 10*6/uLLow4.20-5.70The [facility] HospitalComment on above:Order Comment: No: Do not add to previous drawPerformed By: #### 42784, 59403 #### [facility] [address] [address], USAWBC (Bld) [#/Vol]7.13 10*3/uLNormal4.00-10.60The [facility] HospitalComment on above:Order Comment: No: Do not add to previous drawPerformed By: #### 50756, 32692 #### [facility] [address] [place] [address], USAUS ABDOMEN LIMITEDon [id number] ABDOMEN LIMITEDUnTrinity Health System [facility] Department of Radiology [address] [place] [id number] Patient Name: KEL CASTILLO : 1955 Sex: M Age: Race: White Pt. Location: [id number] Patient Status: I Ordered Date: 10/08/2019 9:30:00 [...] collection. Electronically signed: Brandy Wilson. Transcribed by: [email or web address], User Resident: BRANDY WILSON Electronically Signed by: BRANDY WILSON @ 10/08/2019 10:13 AM I personally read this/these film(s) with this [facility] HospitalComment on above:Order Comment: No: Do not add to previous drawBASIC METABOLIC PANELon [id number] [Mass/Vol]8.7 mg/dLNormal8.6-10.3 The [facility] HospitalComment on above:Order Comment: No: Do not add to previous drawPerformed By: #### 24899, 85163 #### [facility] [address] [place] [address], USAChloride [Moles/Vol]111 mmol/NTvrb75-493Tzx [facility] HospitalComment on above:Order Comment: No: Do not add to previous drawPerformed By: #### 27857, 09482 #### [facility] [address] [place] [address], USACO2 [Moles/Vol]28 mmol/WXhxalv58-30Jur [facility] HospitalComment on above:Order Comment: No: Do not add to previous draw Performed By: #### 68437, 60468 #### [facility] [address] [place] [address], USACreatinine [Mass/Vol]1.59 mg/dLHigh0.70-1.30The [facility] HospitalComment on above:Order Comment: No: Do not add to previous drawPerformed By: #### 38139, 88434 #### [facility] [address] [place] [address], USAGFR/1.73 sq M predicted among blacks MDRD (S/P/Bld) [Vol rate/Area]53 ml/min/1.73sq mAbnormal>60The [facility] Comment on above:Order Comment: No: Do not add to previous drawPerformed By: #### 98535, 70334 #### [facility] [address] [place] [address], USAGFR/1.73 sq M predicted among non-blacks MDRD (S/P/Bld) [Vol rate/Area]44 ml/min/1.73sq mAbnormal>60The [facility] HospitalComment on above:Order Comment: No: Do not add to previous drawPerformed By: #### 48145, 69541 #### [facility] [address] [place] [address], USAGlucose [Mass/Vol]99 mg/tNIxccce12-421Fqv [facility] HospitalComment on above:Order Comment: No: Do not add to previous drawPerformed By: #### 30987, 47349 #### [facility] [address] [place] [address], USAPotassium [Moles/Vol]4.2 mmol/LNormal3.5-5.1The [facility] HospitalComment on above:Order Comment: No: Do not add to previous drawPerformed By: #### 92324, 17632 #### [facility] [address] [place] [address], USASodium [Moles/Vol]142 mmol/BYqlypw067-126Bvf [facility] HospitalComment on above:Order Comment: No: Do not add to previous drawPerformed By: #### 87251, 73202 #### [facility] [address] [place] [address], USAUrea nitrogen [Mass/Vol]16 mg/dLNormal7-25The [facility] HospitalComment on above:Order Comment: No: Do not add to previous drawPerformed By: #### 79420, 05699 #### [facility] [address] [place] [address], [facility] COUNTY HOSPITALCardiovascular Lab Reporton [id number] Lab ReportUnBlanchard Valley Health System Patient Name: Jose [facility] Kel MR #: [id number] Department of Physician: Sarah Tolliver Medicine MKristen Division of Service Date: 10/07/2019 Cardiology Birthdate: 1955 Adult Cardiovascular Room #: [id number] [facility] [address] [place], [place] [address] Cardiovascular Laboratory Report FINAL IMPRESSIONS: 1. Severe 3-vessel chickaloon coronary artery disease. 2. A 2/3 bypass [...] on the anatomic and fluoroscopic landmarks. A 6-Tamazight 11 cm sheath was inserted. Limited femoral [...] Tolliver M.D. Date Trans: 10/07/2019 02:55 P/mmo DN_JN:[id number] cc: Priyank Hendrickson M.D. [address] [place], [place] [id number] Nayana Bledsoe D. [address] [place] [address]GyxzttRzgMercy Health Tiffin HospitalMAGNESIUM BLOODon 87-91-6388Lvyoclrdr [Mass/Vol]2.1 mg/dLNormal1.9-2.7The [facility] HospitalComment on above:Order Comment: No: Do not add to previous draw Performed By: #### 56555, 14540 #### [facility] [address] [place] [address], USABASIC METABOLIC PANELon 44-33-9104Waamdul [Mass/Vol]8.7 mg/dLNormal8.6-10.3The [facility] HospitalComment on above:Order Comment: No: Do not add to previous drawPerformed By: #### 96598, 47747 #### [facility] [address] [place] [address], USAChloride [Moles/Vol]110 mmol/JYprk84-967Bgf [facility] HospitalComment on above:Order Comment: No: Do not add to previous drawPerformed By: #### 02286, 81486 #### [facility] [address] [place] [address], USACO2 [Moles/Vol]26 mmol/CMqydvp06-87Lnr [facility] HospitalComment on above:Order Comment: No: Do not add to previous draw Performed By: #### 21601, 03366 #### [facility] [address] [place] [address], USACreatinine [Mass/Vol]1.92 mg/dLHigh0.70-1.30The [facility] HospitalComment on above:Order Comment: No: Do not add to previous drawPerformed By: #### 84356, 36771 #### [facility] [address] [place] [address], USAGFR/1.73 sq M predicted among blacks MDRD (S/P/Bld) [Vol rate/Area]43 ml/min/1.73sq mAbnormal>60The [facility] Comment on above:Order Comment: No: Do not add to previous drawPerformed By: #### 18559, 06421 #### [facility] [address] [place] [address], USAGFR/1.73 sq M predicted among non-blacks MDRD (S/P/Bld) [Vol rate/Area]35 ml/min/1.73sq mAbnormal>60The [facility] HospitalComment on above:Order Comment: No: Do not add to previous drawPerformed By: #### 15575, 77784 #### [facility] [address] [place] [address], USAGlucose [Mass/Vol]96 mg/aLNzkvfv10-104Dsc [facility] HospitalComment on above:Order Comment: No: Do not add to previous drawPerformed By: #### 46135, 48175 #### [facility] [address] [place] [address], USAPotassium [Moles/Vol]4.4 mmol/LNormal3.5-5.1The [facility] HospitalComment on above:Order Comment: No: Do not add to previous drawPerformed By: #### 12724, 46548 #### [facility] [address] [place] [address], USASodium [Moles/Vol]140 mmol/ZZihqpj392-954Vje [facility] HospitalComment on above:Order Comment: No: Do not add to previous drawPerformed By: #### 47413, 79522 #### [facility] [address] [place] [address], USAUrea nitrogen [Mass/Vol]25 mg/dLNormal7-25The [facility] HospitalComment on above:Order Comment: No: Do not add to previous drawPerformed By: #### 15001, 55504 #### [facility] [address] [place] [address], USACalcium [Mass/Vol]8.8 mg/dLNormal8.6-10.3The [facility] HospitalComment on above:Order Comment: No: Do not add to previous drawPerformed By: #### 00287 #### [facility] [address] [place] [address], USAChloride [Moles/Vol]111 mmol/AZsyh64-005Xge [facility] HospitalComment on above:Order Comment: No: Do not add to previous drawPerformed By: #### 63061 #### [facility] [address] [place] [address], USACO2 [Moles/Vol]25 mmol/HYxhlnz28-72Fyf [facility] HospitalComment on above:Order Comment: No: Do not add to previous draw Performed By: #### 64917 #### [facility] [address] [place] [address], USACreatinine [Mass/Vol]1.94 mg/dLHigh0.70-1.30The [facility] HospitalComment on above:Order Comment: No: Do not add to previous drawPerformed By: #### 11731 #### [facility] [address] [place] [address], USAGFR/1.73 sq M predicted among blacks MDRD (S/P/Bld) [Vol rate/Area]42 ml/min/1.73sq mAbnormal>60The [facility] Comment on above:Order Comment: No: Do not add to previous drawPerformed By: #### 91207 #### [facility] [address] [place] [address], USAGFR/1.73 sq M predicted among non-blacks MDRD (S/P/Bld) [Vol rate/Area]35 ml/min/1.73sq mAbnormal>60The [facility] HospitalComment on above:Order Comment: No: Do not add to previous drawPerformed By: #### 72391 #### [facility] [address] [facility] [place] [address], USAGlucose [Mass/Vol]102 mg/mSNxkm40-072Owo [facility] HospitalComment on above:Order Comment: No: Do not add to previous drawPerformed By: #### 16031 #### [facility] [address] [facility] [place] [address], USAPotassium [Moles/Vol]4.5 mmol/LNormal3.5-5.1The [facility] HospitalComment on above:Order Comment: No: Do not add to previous drawPerformed By: #### 45337 #### [facility] [address] [facility] [place] [address], USASodium [Moles/Vol]140 mmol/AFsngoi759-460Hiv [facility] HospitalComment on above:Order Comment: No: Do not add to previous drawPerformed By: #### 26611 #### [facility] [address] [facility] [place] [address], USAUrea nitrogen [Mass/Vol]27 mg/dLHigh7-25The [facility] HospitalComment on above:Order Comment: No: Do not add to previous drawPerformed By: #### 55928 #### [facility] [address] [facility]. [place] [id number], [facility] HOSPITALCBC W/DIFFon [id number] BASOPHILS0.1 10*3/uLNormal 0.0-0.2The [facility] HospitalComment on above:Order Comment: No: Do not add to previous drawPerformed By: #### 81945 #### [facility] [address] [place] [address], USAABS IMM GRANS0.1 10*3/uLNormal0.0-0.2The [facility] HospitalComment on above:Order Comment: No: Do not add to previous drawPerformed By: #### 29646 #### [facility] [address] [place] [address], USAABS NEUTROPHILS4.2 10*3/uLNormal1.6-7.6The [facility] HospitalComment on above:Order Comment: No: Do not add to previous drawPerformed By: #### 12097 #### [facility] [address] [place] [address], USABasophils/100 WBC (Bld)0.9 %Normal0.0-1.0The [facility] HospitalComment on above:Order Comment: No: Do not add to previous drawPerformed By: #### 86094 #### [facility] [address] [place] [address], USAEosinophils (Bld) [#/Vol]0.3 10*3/uLNormal0.0-0.5The [facility] HospitalComment on above:Order Comment: No: Do not add to previous drawPerformed By: #### 33763 #### [facility] [address] [place] [address], USAEosinophils/100 WBC (Bld)4.8 %Normal0.0-6.0The [facility] HospitalComment on above:Order Comment: No: Do not add to previous drawPerformed By: #### 82186 #### [facility] [address] [place] [address], USAErythrocyte distribution width (RBC) [Ratio]14.3 %Normal 11.5-15.0The [facility] HospitalComment on above:Order Comment: No: Do not add to previous drawPerformed By: #### 51685 #### [facility] [address] [place] [address], USAHematocrit (Bld) [Volume fraction]37.3 %Low39.0-50.0The [facility] HospitalComment on above:Order Comment: No: Do not add to previous drawPerformed By: #### 14835 #### [facility] [address] [place] [address], USAHemoglobin (Bld) [Mass/Vol]11.7 g/dLLow13.0-17.0The [facility] HospitalComment on above:Order Comment: No: Do not add to previous drawPerformed By: #### 00470 #### [facility] [address] [place] [address], USAIMMATURE GRANS1.3 %High0.0-1.0The [facility] HospitalComment on above:Order Comment: No: Do not add to previous draw Performed By: #### 75765 #### [facility] [address] [place] [address], USALymphocytes (Bld) [#/Vol]1.5 10*3/uLNormal1.2-4.0The [facility] HospitalComment on above:Order Comment: No: Do not add to previous drawPerformed By: #### [id number] #### [facility] [address] [place] [address], USALymphocytes/100 WBC (Bld)21.8 %Vlueia21.0-45.0The [facility] HospitalComment on above:Order Comment: No: Do not add to previous drawPerformed By: #### [id number] #### [facility] [address] [place] [address], [facility] (RBC) [Entitic mass]29.5 bcLksczk74.0-33.0The [facility] HospitalComment on above:Order Comment: No: Do not add to previous drawPerformed By: #### [id number] #### [facility] [address] [place] [address], [facility]PITALMCHC (RBC) [Mass/Vol]31.4 g/dLLow32.0-35.0The [facility] HospitalComment on above:Order Comment: No: Do not add to previous drawPerformed By: #### 97631 #### [facility] [address] [place] [address], [facility]V (RBC) [Entitic vol]94.0 dAXrlqsh44.0-98.0The [facility] HospitalComment on above:Order Comment: No: Do not add to previous drawPerformed By: #### [id number] #### [facility] [address] [place] [address], USAMonocytes (Bld) [#/Vol]0.6 10*3/uLNormal0.1-1.0The [facility] HospitalComment on above:Order Comment: No: Do not add to previous drawPerformed By: #### [id number] #### [facility] [address] [place] [address], USAMONOS8.2 %Normal5.0-12.0The [facility] HospitalComment on above:Order Comment: No: Do not add to previous drawPerformed By: #### [id number] #### [facility] [address] [place] [address], USANeutrophils/100 WBC (Bld)63.0 %Nrybha76.0-72.0The [facility] HospitalComment on above:Order Comment: No: Do not add to previous drawPerformed By: #### [id number] #### [facility] [address] [place] [address], USANucleated RBC/100 WBC (Bld) [Ratio]0 %Normal0-0The [facility] HospitalComment on above:Order Comment: No: Do not add to previous drawPerformed By: #### [id number] #### [facility] [address] [place] [address], USAPLAT GYN585 10*3/pHFnxcfn064-462Bmf [facility] HospitalComment on above:Order Comment: No: Do not add to previous draw Performed By: #### 68899 #### [facility] [address] [place] [address], USARBC (Bld) [#/Vol]3.97 10*6/uLLow4.20-5.70The [facility] HospitalComment on above:Order Comment: No: Do not add to previous drawPerformed By: #### 05151 #### [facility] [address] [place] [address], USAWBC (Bld) [#/Vol]6.69 10*3/uLNormal4.00-10.60The [facility] HospitalComment on above:Order Comment: No: Do not add to previous drawPerformed By: #### 06093 #### [facility] [address] [place] [address], USABASIC METABOLIC PANELon 11-83-6009Vclshjy [Mass/Vol]9.7 mg/dLNormal8.6-10.3The [facility] HospitalComment on above:Order Comment: No: Do not add to previous drawPerformed By: #### 28974, 15569 #### [facility] [address] [place] [address], USAChloride [Moles/Vol]105 mmol/OUczcrh64-371Mlx [facility] HospitalComment on above:Order Comment: No: Do not add to previous drawPerformed By: #### 79213, 83384 #### [facility] [address] [place] [address], USACO2 [Moles/Vol]25 mmol/NBlapbc01-13Nhp [facility] HospitalComment on above:Order Comment: No: Do not add to previous draw Performed By: #### 98763, 92597 #### [facility] [address] [place] [address], USACreatinine [Mass/Vol]2.13 mg/dLHigh0.70-1.30The [facility] HospitalComment on above:Order Comment: No: Do not add to previous drawPerformed By: #### 31639, 92851 #### [facility] [address] [place] [address], USAGFR/1.73 sq M predicted among blacks MDRD (S/P/Bld) [Vol rate/Area]38 ml/min/1.73sq mAbnormal>60The [facility] Comment on above:Order Comment: No: Do not add to previous drawPerformed By: #### 84777, 21607 #### [facility] [address] [place] [address], USAGFR/1.73 sq M predicted among non-blacks MDRD (S/P/Bld) [Vol rate/Area]31 ml/min/1.73sq mAbnormal>60The [facility] HospitalComment on above:Order Comment: No: Do not add to previous drawPerformed By: #### 49974, 52540 #### [facility] [address] [place] [address], USAGlucose [Mass/Vol]114 mg/wFLqup07-871Yna [facility] HospitalComment on above:Order Comment: No: Do not add to previous drawPerformed By: #### 64722, 03684 #### [facility] [address] [place] [address], USAPotassium [Moles/Vol]4.7 mmol/LNormal3.5-5.1The [facility] HospitalComment on above:Order Comment: No: Do not add to previous drawPerformed By: #### 79908, 87540 #### [facility] [address] [place] [address], USASodium [Moles/Vol]140 mmol/LAvzeox549-756Iio [facility] HospitalComment on above:Order Comment: No: Do not add to previous drawPerformed By: #### 90944, 21746 #### [facility] [address] [facility] [place] [address], USAUrea nitrogen [Mass/Vol]32 mg/dLHigh7-25The [facility] HospitalComment on above:Order Comment: No: Do not add to previous drawPerformed By: #### 40066, 37685 #### [facility] [address] [facility] [place] [address], [facility] HOSPITALCBC W/DIFFon 64-90-3324SUU BASOPHILS0.1 10*3/uLNormal 0.0-0.2The [facility] HospitalComment on above:Performed By: #### 54898 #### [facility] [address] [facility] [place] [address], USAABS IMM GRANS0.1 10*3/uLNormal0.0-0.2The [facility] HospitalComment on above:Performed By: #### 00693 #### [facility] [address] [place] [address], USAABS NEUTROPHILS6.2 10*3/uLNormal1.6-7.6The [facility] HospitalComment on above:Performed By: #### 86129 #### [facility] [address] [address], USABasophils/100 WBC (Bld)0.7 %Normal0.0-1.0The [facility] HospitalComment on above:Performed By: #### 08822 #### [facility] [address] [place] [address], USAEosinophils (Bld) [#/Vol]0.3 10*3/uLNormal0.0-0.5The [facility] HospitalComment on above:Performed By: #### 36277 #### [facility] [address] [facility] [place] [address], USAEosinophils/100 WBC (Bld)4.0 %Normal0.0-6.0The [facility] HospitalComment on above:Performed By: #### 85981 #### [facility] [address] [place] [address], USAErythrocyte distribution width (RBC) [Ratio]14.4 %Normal 11.5-15.0The [facility] HospitalComment on above:Performed By: #### 51997 #### [facility] [address] [place] [address], USAHematocrit (Bld) [Volume fraction]39.3 %Shlpma83.0-50.0The [facility] HospitalComment on above:Performed By: #### 12267 #### [facility] [address] [place] [address], USAHemoglobin (Bld) [Mass/Vol]12.7 g/dLLow13.0-17.0The [facility] HospitalComment on above:Performed By: #### 76894 #### [facility] [address] [place] [address], USAIMMATURE GRANS0.8 %Normal0.0-1.0The [facility] HospitalComment on above:Performed By: #### 42986 #### [facility] [address] [place] [address], USALymphocytes (Bld) [#/Vol]1.4 10*3/uLNormal1.2-4.0The [facility] HospitalComment on above:Performed By: #### 38590 #### [facility] [address] [place] [address], [facility]AL[facility] COUNTY HOSPITALLymphocytes/100 WBC (Bld)16.6 %Low20.0-45.0The [facility] HospitalComment on above:Performed By: #### 78531 #### [facility] [address] [facility] [place] [address], [facility]H (RBC) [Entitic mass]30.3 pkHnrqyd33.0-33.0The [facility] HospitalComment on above:Performed By: #### 99304 #### [facility] [address] [place] [address], [facility] HOSPITALMCHC (RBC) [Mass/Vol]32.3 g/hTZpgvaq87.0-35.0The [facility] HospitalComment on above:Performed By: #### 25330 #### [facility] [address] [place] [id number], [facility] COUNTY HOSPITALMCV (RBC) [Entitic vol]93.8 bJKwfacs27.0-98.0The [facility] HospitalComment on above:Performed By: #### 12142 #### [facility] [address] [place] [address], USAMonocytes (Bld) [#/Vol]0.4 10*3/uLNormal0.1-1.0The [facility] HospitalComment on above:Performed By: #### 85528 #### [facility] [address] [place] [address], USAMONOS4.9 %Low5.0-12.0The [facility] HospitalComment on above:Performed By: #### [id number] #### [facility] [address] [place] [address], USANeutrophils/100 WBC (Bld)73.0 %High40.0-72.0The [facility] HospitalComment on above:Performed By: #### 54773 #### [facility] [address] [place] [address], USANucleated RBC/100 WBC (Bld) [Ratio]0 %Normal0-0The [facility] HospitalComment on above:Performed By: #### 59157 #### [facility] [address] [place] [address], USAPLAT QFF028 10*3/nTAxipqf307-679Nhj [facility] HospitalComment on above:Performed By: #### 51318 #### [facility] [address] [place] [address], USARBC (Bld) [#/Vol]4.19 10*6/uLLow4.20-5.70The [facility] HospitalComment on above:Performed By: #### 86550 #### [facility] [address] [facility] [place] [address], USAWBC (Bld) [#/Vol]8.53 10*3/uLNormal4.00-10.60The [facility] HospitalComment on above:Performed By: #### 97826 #### [facility] [address] [place] [address], USACREATININE URINE RANDOMon 84-42-8570Ispjlzckdj [Mass/Vol] 62.0 mg/dLNoMercy Health Tiffin HospitalComment on above:Order Comment: No: Do not add to previous drawResult Comment: There are no established reference values for random urine specimensPerformed By: #### 55350, 35830, 66130 #### [facility] [address] [place] [address], USALIVER BATTERYon 48-55-7829Mzwvhda [Mass/Vol]4.6 g/dLNormal 3.5-5.7The [facility] HospitalComment on above:Order Comment: Yes: Add to Previous draw if ablePerformed By: #### 09045, 10568 #### [facility] [address] [place] [address], USAALKALINE YRWRJA09 IU/TZdfchy09-439Rzr [facility] HospitalComment on above:Order Comment: Yes: Add to Previous draw if able Performed By: #### 54099, 33800 #### [facility] [address] [place] [address], USAALT [Catalytic activity/Vol]26 U/LNormal7-52The [facility] HospitalComment on above:Order Comment: Yes: Add to Previous draw if ablePerformed By: #### 90284, 69019 #### [facility] [address] [place] [address], USAAST [Catalytic activity/Vol]25 U/QYlsxwd73-27Lcx [facility] HospitalComment on above:Order Comment: Yes: Add to Previous draw if ablePerformed By: #### 42798, 32443 #### [facility] [address] [place] [address], USABilirubin [Mass/Vol]0.5 mg/dLNormal0.3-1.0The [facility] HospitalComment on above:Order Comment: Yes: Add to Previous draw if ablePerformed By: #### 83863, 22716 #### [facility] [address] [place] [address], USABilirubin.direct [Mass/Vol]0.1 mg/dLNormal0.0-0.2The [facility] HospitalComment on above:Order Comment: Yes: Add to Previous draw if ablePerformed By: #### 24254, 98155 #### [facility] [address] [place] [address], USAProtein [Mass/Vol]7.6 g/dLNormal6.0-8.3The [facility] HospitalComment on above:Order Comment: Yes: Add to Previous draw if ablePerformed By: #### 29406, 67619 #### [facility] [address] [place] [address], USASODIUM URINE RANDOMon 81-26-3891Jrymxp (U) [Moles/Vol]111 mmol/LNormalThe [facility] HospitalComment on above:Order Comment: No: Do not add to previous drawResult Comment: There are no established reference values for random urine specimensPerformed By: #### 14427, 17085, 38152 #### [facility] [address] [place] [address], USAUA,MICROSCOPIC REQUIREDon 63-43-2527Aetfmxmhvc (U)CLEAR NormalCLEARThe [facility] HospitalComment on above:Order Comment: No: Do not add to previous drawPerformed By: #### 50894 #### [facility] [address] [place] [address], USABilirubin [Mass/Vol]NegativeNormalNEGATIVEThe [facility] HospitalComment on above:Order Comment: No: Do not add to previous drawPerformed By: #### 71972 #### [facility] [address] [place] [address], USABLOODNegativeNormalNEGATIVEThe [facility] HospitalComment on above:Order Comment: No: Do not add to previous drawPerformed By: #### 09163 #### [facility] [address] [place] [address], USAColor (U)YELLOWNormalYELLOWThe [facility] HospitalComment on above:Order Comment: No: Do not add to previous drawPerformed By: #### 30542 #### [facility] [address] [place] [address], USAEPISOCCNormalFEW,OCC,NONE SEENThe [facility] HospitalComment on above:Order Comment: No: Do not add to previous draw Performed By: #### 85178 #### [facility] [address] [place] [address], USAGlucose [Mass/Vol]NegativeNormalNEGATIVEThe [facility] HospitalComment on above:Order Comment: No: Do not add to previous drawPerformed By: #### 74119 #### [facility] [address] [place] [address], USAHYALINE CASTS1 /LPFAbnormalNONE SEENThe [facility] HospitalComment on above:Order Comment: No: Do not add to previous drawPerformed By: #### 42498 #### [facility] [address] [place] [address], USAKETONENegativeNormalNEGATIVEThe [facility] HospitalComment on above:Order Comment: No: Do not add to previous draw Performed By: #### 23886 #### [facility] [address] [place] [address], USALEUK ESTERNegativeNormalNEGATIVEThe [facility] HospitalComment on above:Order Comment: No: Do not add to previous draw Performed By: #### 86191 #### [facility] [address] [place] [address], USANitrite Ql (U)NegativeNormalNEGATIVEThe [facility] HospitalComment on above:Order Comment: No: Do not add to previous drawPerformed By: #### 59405 #### [facility] [address] [place] [address], USApH (Bld)6.2Gjvpbw8.0-8.0The [facility] HospitalComment on above:Order Comment: No: Do not add to previous drawPerformed By: #### 94246 #### [facility] [address] [place] [address], USAProtein [Mass/Vol]NegativeNormalNEGATIVEThe [facility] HospitalComment on above:Order Comment: No: Do not add to previous drawPerformed By: #### 14352 #### [facility] [address] [place] [address], USARBC (Bld) [#/Vol]0-2AbnormalNONE SEENThe [facility] HospitalComment on above:Order Comment: No: Do not add to previous drawPerformed By: #### 82357 #### [facility] [address] [place] [address], USASPEC GRAV1.641Quu5.015-1.020The [facility] HospitalComment on above:Order Comment: No: Do not add to previous draw Performed By: #### 97418 #### [facility] [address] [address], USAWBC UA0-2AbnormalNONE SEENThe [facility] HospitalComment on above:Order Comment: No: Do not add to previous drawPerformed By: #### 68510 #### [facility] [address] [facility] [place] [address], USAUREA NITROGEN URon 86-78-5035Wwnj nitrogen [Mass/Vol]566 mg/dLNormalThe [facility] HospitalComment on above:Order Comment: No: Do not add to previous drawResult Comment: There are no established reference values for random urine specimensPerformed By: #### 76029, 33193, 81378 #### [facility] [address] [facility] [place] [address], USAUS RENALon 21-90-2393KK RENALUnTrinity Health System [facility] Department of Radiology [address] [place] [address] Patient Name: KEL CASTILLO : 1955 Sex: M Age: Race: White Pt. Location: [id number] Patient Status: I Ordered Date: 10/05/2019 10:45:00 [...] hydronephrosis. Electronically signed: Madison Castellanos. Transcribed by: [email or web address], User Resident: Electronically Signed by: MADISON CASTELLANOS @ 10/05/2019 03:41 PMNOhioHealth Pickerington Methodist HospitalComment on above:Order Comment: Hydronephrosis Vital Signs Date TimeVital SignValuePerforming HapmpbdeyFyennkmt68-14-0339 14:14-0400Body xrnnni240.6 cmDainez Gant MD Work Phone: [facility]08-21-2025 14:14-0400Body mass index (BMI) [Ratio]26.63 kg/i5NwkuvBill Gant MD Work Phone: [facility]08-21-2025 14:140400Body nyexat17.84 kgDainez Gant MD Work Phone: [facility]08-21-2025 14:14-0400Diastolic blood fnajavun41 mm[Hg]Bill Gant MD Work Phone: [facility]08-21-2025 14:14-0400Heart rate59 /min Bill Gant MD Work Phone: [facility]08-21-2025 14:14-3992JbF3% (BldA) [Mass fraction]99 %Bill Gant MD Work Phone: [facility]08-21-2025 14:14-0400Systolic blood mm[Hg]Bill Gant MD Work Phone: [facility]07-30-2025 09:53-0400Body brweyz586.1 cmMegan Verhoff PA-C Work Phone: [facility] [employer] Xkafgl07-86-8209 09:53-0400Body mass index (BMI) [Ratio]27.12 kg/e9Okaub Verhoff PA-C Work Phone: [facility] [employer] Thozaz74-89-1916 09:53-0400Body dujgpr41.94 kgMegan Verhoff PA-C Work Phone: [facility] [employer] Maljny36-38-7861 09:53-0400Diastolic blood fynxasro17 mm[Hg]Darrick Verhoff PA-C Work Phone: [facility]07-30-2025 09:53-0400Heart rate 51 /minMegan Verhoff PA-C Work Phone: [facility] [employer] Ecocnr45-54-3295 09:53-0400 Respiratory rate18 /minMegan Verhoff PA-C Work Phone: [facility] [employer] Jvewhk81-97-7522 09:53-6447ItM3% (BldA) [Mass fraction]100 %Darrick Verhoff PA-C Work Phone: [facility]07-30-2025 09:53-0400Systolic blood dsrupkky274 mm[Hg]Darrick Verhoff PA-C Work Phone: [facility]07-21-2025 13:45-0400Body mass index (BMI) [Ratio]25.33 kg/m2Noa Watson [employer]PERATIONS FORESTER Work Phone: [facility] CenterKywldrfpev08-42-5924 13:45-0400Body temperature 97.3 [degF]Noa Manzoobi [employer]PERATIONS FORESTER Work Phone: [facility] CenterVvpkndccra13-03-1348 13:45-0400Body bvgagz38.57 kgLisa Simmonsadriano OPERATIONS FORESTER Work Phone: [facility] CenterVxruhbkxkh46-50-2694 13:45-0400Diastolic blood enkovdjr88 mm[Hg]Noa Manzoobi OPERATIONS FORESTER Work Phone: [facility] CenterMbfdxvokqv94-70-8065 13:45-0400Heart rate54 /min Noa Watson OPERATIONS FORESTER Work Phone: [facility] CenterQrsuhfamlq81-85-7821 13:45-0400Respiratory rate18 /minLisa Watson OPERATIONS FORESTER Work Phone: [facility] CenterVsyyaxgkii78-81-2513 13:45-0120MbM0% (BldA) [Mass fraction]97 %Noa Manzoz [employer]PERATIONS FORESTER Work Phone: [facility] CenterEnvxzbrziy07-43-1754 13:45-0400Systolic blood cfuxjial172 mm[Hg]Noa Manzoz [employer]PERATIONS FORESTER Work Phone: [facility] CenterNatcxwvryl20-43-8008 10:22-0400Body yaxcfv741.6 cmMegan Verhoff PA-C Work Phone: [facility]06-18-2025 10:22-0400Body mass index (BMI) [Ratio]26.79 kg/n3Whwpz Verhoff PA-C Work Phone: [facility]06-18-2025 10:22-0400Body zuzjsp05.3 kgMegan Verhoff PA-C Work Phone: [facility] [employer] Ajbdmb88-37-8429 10:22-0400Diastolic blood zksxnyjm98 mm[Hg]Darrick Verhoff PA-C Work Phone: [facility] [employer] Tlxqbi65-46-8196 10:22-0400Heart rate 57 /minMegan Verhoff PA-C Work Phone: [facility]06-18-2025 10:22-0400 Respiratory rate20 /minMegan Verhoff PA-C Work Phone: [facility] [employer] Rmnaid53-22-5612 10:22-0400Systolic blood elvyaczq329 mm[Hg]Darrick Verhoff PA-C Work Phone: [facility]06-10-2025 16:26-0400Body cfunem271.1 [facility]06-[facility]20[facility] 16:26-0400Body mass index (BMI) [Ratio]27.8 kg/d2FlgcymfnrCleveland Clinic06-10-2025 16:26-0400Body higlzc51.74 kgC[facility]06-10-2025 16:26-0400Diastolic blood tyvszmvj47 mm[Hg][facility] 01-19-2025 16:26-0400Heart rate64 /[facility] 01-19-2025 16:26-0400Respiratory rate16 /[facility] 01-19-2025 16:26-6900VuE7% (BldA) [Mass fraction]96 %[facility]06-10-2025 16:26-0400Systolic blood weranfca923 mm[Hg][facility]06-10-2025 13:06-0400Body mass index (BMI) [Ratio]25.21 kg/m2Noa Watson OPERATIONS FORESTER Work Phone: [employer] [facility] ParkKindred HospitalYnqlglyuwa05-39-6636 13:06-0400Body temperature 98.49 [degF]Noa Watson [employer]PERATIONS [employer]ESTER Work Phone: [phone] [place], [place] [address]Pgzdfmmchg45-75-2742 13:06-0400Body .21 kgLisa Rigobertohholz OPERATIONS FORESTER Work Phone: [facility] CenterHeghshejzi87-42-9608 13:06-0400Diastolic blood qucfygpk74 mm[Hg]Noa Aichholz [employer]PERATIONS FORESTER Work Phone: [facility] CenterRdtbxvymka20-81-9144 13:06-0400Heart rate66 /min Noa Aichholz [employer]PERATIONS FORESTER Work Phone: [facility] CenterXarqiokitr46-15-7736 13:06-0400Respiratory rate18 /minLisa Aichholz OPERATIONS FORESTER Work Phone: [facility] CenterLyjxwbbdaa80-29-8669 13:06-7809CqG4% (BldA) [Mass fraction]96 %Noa Aichholz [employer]PERATIONS FORESTER Work Phone: [facility] CenterDtmhzxfchg45-50-3177 13:06-0400Systolic blood mm[Hg]Noa Aichholz [employer]PERATIONS FORESTER Work Phone: [facility] [id number] 13:03-0400Body mass index (BMI) [Ratio]25.21 kg/m2Lisa Aichholz [employer]PERATIONS FORESTER Work Phone: [facility] [id number] 13:03-0400Body temperature 98.71 [degF]Noa Rigobertohholz [employer]PERATIONS FORESTER Work Phone: [facility] [id number] 13:03-0400Body .21 kgLisa Aichholz [employer]PERATIONS FORESTER Work Phone: [place] [id number] 13:03-0400Diastolic blood tdqstobg71 mm[Hg]Noa Aichholz [employer]ESTER Work Phone: [place] [id number] 13:03-0400Heart rate67 /min Noa Aichholz [employer] Work Phone: [place] [id number] 13:03-0400Respiratory rate18 /minLisa Aichholz [employer]PERATIONS FORESTER Work Phone: [facility] CenterZthggxgzne01-18-4952 13:03-0767OcD5% (BldA) [Mass fraction]96 %Noa Shirley [employer]ESTER Work Phone: [facility] CenterRuswojmnov97-70-7087 13:03-0400Systolic blood qxedchik783 mm[Hg]Noa Simmonsadriano OPERATIONS FORESTER Work Phone: [facility] CenterWiyophhuha77-04-8668 15:59-0400Body .1 cm[facility]03-[facility] 15:59-0400Body mass index (BMI) [Ratio]27.8 kg/h9BxlcfmharCleveland Clinic03-18-2025 15:59-0400Body vvulsj58.8 kgC[facility]03-18-2025 15:59-0400Diastolic blood gohqryhz96 mm[Hg][facility]03-18-2025 15:59-0400 Heart rate56 /[facility]03-18-2025 15:59-0400 Respiratory rate16 /[facility]03-18-2025 15:59-0400 SaO2% (BldA) [Mass fraction]95 %[facility]03-18-2025 15:59-0400Systolic blood balgfpvv509 mm[Hg][facility] 10-12-2024 11:22-0500Body ovtxvm243.1 cmAmanda Mandeep Latasha DO Work Phone: [facility]03-03-2025 11:22-0500Body mass index (BMI) [Ratio]28.29 kg/c4Dmfrjk Mandeep Latasha DO Work Phone: [facility]03-03-2025 11:22-0500Body .1 kgAmanda Mandeep Latasha DO Work Phone: [facility]03-03-2025 11:22-0500Diastolic blood qqmadetz10 mm[Hg]Eun Mandeep Latasha DO Work Phone: [facility]03-03-2025 11:22-0500Heart rate58 /min Eun Mandeep Latasha DO Work Phone: [facility]03-03-2025 11:22-0500Systolic blood dycjwyiz666 mm[Hg]Eun Black DO Work Phone: [facility]02-27-2025 13:45-0500Body mass index (BMI) [Ratio]25.82 kg/m2Noa Watson OPERATIONS FORESTER Work Phone: [facility] CenterRordwodjko46-04-3650 13:45-0500Body temperature 98.1 [degF]Noa Shirley OPERATIONS FORESTER Work Phone: [facility] CenterLbpoyxnvkj69-39-8459 13:45-0500Body aeadpe70.02 kgNelly Shirley OPERATIONS FORESTER Work Phone: [facility] CenterCgldygoqwp52-50-0523 13:45-0500Diastolic blood mm[Hg]Noa Shirley OPERATIONS FORESTER Work Phone: [facility] CenterAgcwfvmnek56-97-9348 13:45-0500Heart rate51 /min Noa Shirley OPERATIONS FORESTER Work Phone: [facility] CenterSxzjqdcxdh39-91-9934 13:45-0500Respiratory rate18 /minLi Rigobertorandolphadriano OPERATIONS FORESTER Work Phone: [facility] CenterTwwcsdsvae37-68-8395 13:45-6744RyV5% (BldA) [Mass fraction]97 %Noa Shirley OPERATIONS FORESTER Work Phone: [facility] CenterRieisgxiif16-28-0326 13:45-0500Systolic blood uolbuwsc960 mm[Hg]Noa Shirley OPERATIONS FORESTER Work Phone: [facility] CenterCwzwkpxykm02-26-4061 13:13-0500Body oguvcn841.7 cmBrharmeet Coronado OPERATIONS FORESTER Work Phone: [facility] CenterSziyjxngub36-43-5937 13:13-0500Body mass index (BMI) [Ratio]27.55 kg/j2ThhezlevJayy Pollocktrick OPERATIONS FORESTER Work Phone: [facility] CenterVgxxocjedp21-84-4447 13:13-0500Body temperature 96.6 [degF]Jayy Pollocktrick OPERATIONS FORESTER Work Phone: [facility] CenterNinxsxwvmv09-73-4302 13:13050Body iiggxo90.19 kgJayy Padillapatrick OPERATIONS FORESTER Work Phone: [facility] CenterEwijekegoy38-82-9152 13:13-0500Diastolic blood jttnatcv59 mm[Hg]Jayy Padillapatrick OPERATIONS FORESTER Work Phone: [place] [address]Hyroaqlbmo22-93-6681 13:13-0500Heart rate57 /min Jayy Pollocktrick OPERATIONS FORESTER Work Phone: [facility] CenterMmwzkhmyru02-86-7931 13:130500Respiratory rate16 /minJayy Padillapatrick OPERATIONS FORESTER Work Phone: [place] [address]Zznkgsxfhi13-53-2255 13:134816FvP4% (BldA) [Mass fraction]94 %Jayy Padillapatrick OPERATIONS FORESTER Work Phone: [facility] CenterAubcdhjwpy80-07-2179 13:13050Systolic blood mm[Hg]Jayy Pollocktrick OPERATIONS FORESTER Work Phone: [facility] CenterIaonowwsfg41-21-1535 09:36-0400Body .6 cmAmanda Mandeep Davilaon DO Work Phone: [facility]09-23-2024 09:36-0400Body mass index (BMI) [Ratio]28.64 kg/s9Fuffhj Mandeep Latasha DO Work Phone: [facility]09-23-2024 09:36-0400Body zpslup18.5 kgAmanchevy Mandeep Latasha DO Work Phone: [place] [address]-23-2024 09:36-0400Diastolic blood hclssefb77 mm[Hg]Eun Mandeep Latasha DO Work Phone: [place] [address]-23-2024 09:36-0400Heart rate57 /min Eun Black DO Work Phone: [facility]09-23-2024 09:36-0400Systolic blood oywwkntj393 mm[Hg]Eun Black DO Work Phone: [facility]08-20-2024 13:00-0400Body ywfjnk746.64 cm[facility]08-20-2024 13:00-0400Body mass index (BMI) [Ratio]29.4 kg/q0TbfcjqjulCleveland Clinic08-20-2024 13:00-0400Body mejeljbkjzd17 [degF][facility]08-20-2024 13:00-0400Body hhaqpw35.72 kgC[facility]08-20-2024 13:00-0400Diastolic blood eshvqsha79 mm[Hg][facility]08-20-2024 13:00-0400 Heart rate58 /[facility]08-20-2024 13:00-0400 Respiratory rate18 /[facility]08-20-2024 13:00-0400 SaO2% (BldA) [Mass fraction]97 %[facility]08-20-2024 13:00-0400Systolic blood idyiszgq604 mm[Hg][facility] 09-19-2023 13:53-0500Body ksjdza328.7 Waldemar Grimes MD Work Phone: [facility] CenterEngkrropnx22-54-6236 13:53-0500Body mass index (BMI) [Ratio]28.43 kg/g3PudrcbShaikh Cornelio LEMON Work Phone: [facility] CenterZhegzywcjm54-21-1416 13:53-0500Body temperature 97.5 [degF]Shaikh Cornelio LEMON Work Phone: [facility] CenterGvtsegfdep46-87-9999 13:53-0500Body quaadi20.82 kgShaikh Cornelio LEMON Work Phone: [facility] CenterSlsazvmrve76-96-7953 13:53-0500Diastolic blood dldhjhuw96 mm[Hg]Shaikh Cornelio LEMON Work Phone: [employer] SystemsYzfgdbcpob99-92-9203 13:53-0500Heart rate59 /min Shaikh Cornelio LEMON Work Phone: noAlethDhinbljlpq70-94-6554 13:53-2163LbL5% (BldA) [Mass fraction]95 %Shaikh Cornelio LEMON Work Phone: noAlethDgwkshgwwa01-53-8763 13:53-0500Systolic blood gtjgmbfy398 mm[Hg]Shaikh Cornelio LEMON Work Phone: [employer] SystemsGbjmsumwys66-40-6583 10:00-0400Body ydmtak570.64 cmAalisonobi Toscano Other [employer] Other 06-16-2023 10:00-0400Body mass index (BMI) [Ratio] 31.57 kg/m2Hanna Mando Other [employer] Other 06-16-2023 10:00-0400Body mdkdfhtinpp23.2 [degF]Hanna Ortizcatarina Other [employer] Other 06-16-2023 10:00-0400Body mrocns41.72 kgHanna Wesholden Other [employer] Other 06-16-2023 10:00-0400Diastolic blood loamvyuw93 mm[Hg] Hanna Wesholden Other [employer] Other 06-16-2023 10:00-0400Respiratory rate20 /minHanna Mando Other [employer] Other 06-16-2023 10:00-4478UlU2% (BldA) [Mass fraction]98 % Hanna Tosc[facility] Other [facility] [place] Other 134405-55-7777 10:00-0400Systolic blood mm[Hg] Hanna Toscano Other [place] Other 213941-17-5741 15:40-0500Body .6 cmAmanda Mandeep DO Work Phone: [facility]01-04-2023 15:40-0500Body xosilx62.81 kgAmanda Mandeep DO Work Phone: [facility]01-04-2023 15:40-0500Diastolic blood jbuljvho83 mm[Hg]Eun Mandeep DO Work Phone: [facility]01-04-2023 15:40-0500Heart rate61 /min Eun Mandeep DO Work Phone: [facility]01-04-2023 15:40-7048ZrA4% (BldA) [Mass fraction]100 %Eun Mandeep DO Work Phone: [facility]01-04-2023 15:40-0500Systolic blood tvrenjdl617 mm[Hg]Eun Mandeep DO Work Phone: [facility]11-29-2022 14:40-0500Body .64 Jean Paul Mando Other [facility] [place] Other 11-29-2022 14:40-0500Body mass index (BMI) [Ratio] 31.95 kg/m2Hanna Wesholden Other [place] Other 11-29-2022 14:40-0500Body iijmfv77.81 kgHanna Mando Other [place] Other 11-29-2022 14:40-0500Diastolic blood wiarvzyr95 mm[Hg] Hanna Toscano Other [employer] Other 11-29-2022 14:40-5200SwJ2% (BldA) [Mass fraction]95 % Hanna Toscano Other [employer] Other 11-29-2022 14:40-0500Systolic blood oqnrrxvg539 mm[Hg] Hanna Toscano Other [employer] Other 10-25-2022 16:30-0400Body .64 [facility] Mabel Other [employer] Other 10-25-2022 16:30-0400Body mass index (BMI) [Ratio] 32.12 kg/k5Ouunc [facility]un[facility] Other [employer] Other 10-25-2022 16:30-0400Body cwvkqpuuijs49.5 [degF][facility] Centerka[facility] Other [employer] Other 10-25-2022 16:30-0400Body acccll05.27 [facility]Nov[facility] Other [employer] Other 10-25-2022 16:30-0400Diastolic blood vgkwlwbe65 mm[Hg] [facility] Other [employer] Other 10-25-2022 16:30-0400Respiratory rate20 /minCar[facility]ont [facility]un[facility] Other [employer] Other 10-25-2022 16:30-8153UuR1% (BldA) [Mass fraction]96 % Corona Monroe Other [employer] Other 10-25-2022 16:30-0400Systolic blood lcxmxbpe621 mm[Hg] Corona Monroe Other [employer] Other 08-30-2022 09:44-0400Body zoitgd303.1 cmAmanda Mandeep DO Work Phone: [facility]08-30-2022 09:44-0400Body .68 kgAmanchevy Mandeep DO Work Phone: [facility]08-30-2022 09:44-0400Diastolic blood ptmpsuue95 mm[Hg]Eunsotero Mccrayok DO Work Phone: [facility]08-30-2022 09:44-0400Heart rate57 /min Eunsotero Mccrayok DO Work Phone: [facility]08-30-2022 09:44-0400Systolic blood ovgyooue673 mm[Hg]Eun Kaufman DO Work Phone: [facility]07-19-2022 15:30-0400Body oaagvj756.64 cmCorona Monroe Other [employer] Other 07-19-2022 15:30-0400Body mass index (BMI) [Ratio] 31.95 kg/m1JofiuCorona Monroe Other [employer] Other 07-19-2022 15:30-0400Body deeboftydmh33.9 [degF]Corona Monroe Other [employer] Other 07-19-2022 15:30-0400Body tnitdb65.81 kgCorona Casesoila Other [employer] Other 07-19-2022 15:30-0400Diastolic blood mm[Hg] Corona Monroe Other [employer] Other 07-19-2022 15:30-0400Respiratory rate20 /minCorona Monroe Other [employer] Other 07-19-2022 15:30-9363NaQ3% (BldA) [Mass fraction]97 % Corona Monroe Other [employer] Other 07-19-2022 15:30-0400Systolic blood pydmwpqf269 mm[Hg] Corona Monroe Other [employer] Other 06-20-2022 12:00-0400Body uthalj043.64 cmLuis Fernandotiburcio Suazo Other [employer] Other 06-20-2022 12:00-0400Body mass index (BMI) [Ratio] 32.84 kg/r2HlnfcCristo Suazo Other [employer] Other 06-20-2022 12:00-0400Body ygzvxm30.31 kgCristo Lambahan Other [employer] Other 06-20-2022 12:00-0400Diastolic blood fknndgok88 mm[Hg] Cristo Suazo Other [employer] Other 06-20-2022 12:00-0400Respiratory rate18 /minCristo Lambahan Other [employer] Other 06-20-2022 12:00-8190VoS7% (BldA) [Mass fraction]98 % Cristo Suazo Other [employer] Other 06-20-2022 12:00-0400Systolic blood qmdvsveo441 mm[Hg] Cristo uSazo Other [employer] Other 05-17-2022 17:00-0400Body rueshc422.64 cmCirsto Suazo Other [employer] Other 05-17-2022 17:00-0400Body mass index (BMI) [Ratio] 31.15 kg/o2OxpavCristo Suazo Other [employer] Other 05-17-2022 17:00-0400Body .54 kgCristo Suazo Other [employer] Other 05-17-2022 17:00-0400Diastolic blood kgotiuii81 mm[Hg] Cristo Suazo Other [employer] Other 05-17-2022 17:00-0400Respiratory rate18 /minCristo Suazo Other [employer] Other 05-17-2022 17:00-2035HoK2% (BldA) [Mass fraction]95 % Cristo Suazo Other [employer] Other 05-17-2022 17:00-0400Systolic blood glwzvybt653 mm[Hg] Cristo Suazo Other [employer] Other 05-13-2022 08:25-0400Body owheii160.1 Justin Bright MD Work Phone: [place] [address]-13-2022 08:25-0400Body bifrot22.68 kgJessie Bright MD Work Phone: c[facility] HospitalPwldrq85-21-2601 08:25-0400Diastolic blood mlakdqih30 mm[Hg]Jessie Bright MD Work Phone: c[facility] HospitalDberlp67-07-0166 08:25-0400Heart rate59 /min Jessie Bright MD Work Phone: c[facility] HospitalPumkfq52-40-6390 08:25-0400Systolic blood uivfpnez003 mm[Hg]Jessie Bright MD Work Phone: c[facility] HospitalSbzulj07-41-5553 15:40-0400Body ocqwcw794.64 cmEricky Triana Other [employer] Other 10-12-2021 15:40-0400Body mass index (BMI) [Ratio] 30.84 kg/l6SoyiqReuben Triana Other [employer] Other 10-12-2021 15:40-0400Body vumapukkbea34.3 [degF]Reuben Triana Other [employer] Other 10-12-2021 15:40-0400Body yfhmlt26.68 kgReuben Triana Other [employer] Other 10-12-2021 15:40-0400Diastolic blood mm[Hg] Reuben Triana Other [employer] Other 10-12-2021 15:40-0400Respiratory rate18 /minEricky Triana Other [employer] Other 10-12-2021 15:40-9487LzH9% (BldA) [Mass fraction]94 % Reuben Triana Other [facility] [place] Other 884203-30-3462 15:40-0400Systolic blood kcuauops380 mm[Hg] Reuben Triana Other [facility] [place] Other Encounters Encounter DateEncounter TypeCare ProviderFacilityStart: 93-38-2457Qvhchslpk department patient visitBELCentervilletart: 06-15-2025 End: 76-24-7607Myffihupbe and management of inpatientMUNIER NAZZALUniversMercy Health St. Rita's Medical Centertart: 80-00-0454pglgvdkmczVLJOVYLSelect Medical Specialty Hospital - Cantontart: 06-12-2025 End: 71-44-3908Ifukilyqs department patient visitNAEL [facility] Hospitaltart: 81-40-6101Pgipkusujz and management of inpatientKELLILYN RUSniversMercy Health St. Rita's Medical Centertart: 45-88-1190Npsjhvwen for other preprocedural examinationMUNIER NAMercy Health Fairfield Hospitaltart: 06-07-2025 End: 80-50-8201Vbvufvsoy for other preprocedural examinationMUNIER [facility] Hospitaltart: 06-07-2025 End: 86-19-8022Hszemtvugb and management of inpatientMUNIER NAZZALUniversMercy Health St. Rita's Medical Centertart: 16-87-2722ahdpvzbxdyODHNNVLAshtabula General Hospitaltart: 96-78-1424mgkqkvmfifMYUQXRXAshtabula General Hospitaltart: 05-26-2025 End: 58-54-0611ikntvjxrskFWYTP ALAUK Healthcaretart: 60-77-6572lposjzmkgpTINANUUAshtabula General Hospitaltart: 05-24-2025 End: 46-97-4432eqqtpsbwadWUKFYBNRegency Hospital Company Start: 05-11-2025 End: 48-92-6192xwrzvzrqjlLRZAClinton Memorial Hospitaltart: 04-29-2025 End: 11-28-5236flcokaiyieHDHGAP MOOK ROLONFacility:[facility] Start: 04-21-2025 End: 09-42-9557lxgxvipijvQEPIFCSouthern Ohio Medical Centertart: 04-15-2025 End: 00-14-9820glnaawuupwNXSXQLSouthern Ohio Medical Centertart: 04-08-2025 End: 36-30-7019nuevmfliyoFFCHClinton Memorial Hospitaltart: 04-05-2025 End: 41-15-5927Guzzdxtqt encounterDainez Gant MD Work Phone: ppg Cardiology [place]ronComment on above:Phys Assistant - OtherStart: 04-05-2025 End: 91-12-7758lzhmxcbxaqJROCF A CUTLEROhioHealth Hardin Memorial Hospitaltart: 04-02-2025 End: 88-91-9792Bfzjxf-up encounterDainez Gant MD Work Phone: pp[facility] Cardiology [place]ronComment on above:ResultsStart: 04-01-2025 End: 75-98-1811zpjhigyaqlWWWVC A CUTLERFacility:[place] GeneralStart: 04-01-2025 End: 26-07-4895Lowavzq encounter procedureBill Gant MD Work Phone: ppg Cardiology AkronComment on above: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 (Primary Dx); Hx of CABG; Primary hypertension; Mixed hyperlipidemia; CRI (chronic renal insufficiency), stage 4 (severe) (HCC); PAD (peripheral artery disease); Other emphysema (HCC); Non-rheumatic mitral regurgitation; ROMAN (dyspnea on exertion); MCI (mild cognitive impairment)Start: 04-01-2025 End: 59-87-3354qxorfzcbvhDHBPO A CUTLERFacility:[facility] GeneralStart: 04-01-2025 End: 85-72-6976Aaalwgqel Result EncounterGeneric External Data ProviderNOMS External Department UnsolicitedStart: 04-01-2025 End: 09-60-7259Aswvcjqde Result EncounterGeneric External Data ProviderNOMS External Department UnsolicitedStart: 04-01-2025 End: 56-45-8562rlaotwjyzsCANYTScripps Mercy Hospital HospitalStart: 03-11-2025 End: 48-74-8639Ioatfvmtg Result EncounterGeneric External Data ProviderNOMS External Department UnsolicitedStart: 03-11-2025 End: 24-89-6075Zoccxirvd Result EncounterGeneric External Data ProviderNOMS External Department UnsolicitedStart: 03-10-2025 End: 86-62-4402Iajnao outpatient visit 25 minutesDarrick Cannon PA-C Work Phone: [facility] Pain Management ClinicComment on above:Cervical spondylosis (Primary Dx)Start: 03-10-2025 End: 59-92-7179cxfdipldyeELVFCScripps Mercy Hospital HospitalStart: 03-01-2025 End: 76-60-1754Atcyix flowsheetNellysa Anaisz OPERATIONS FORESTER Work Phone: noMS CWM FMStart: 03-01-2025 End: 63-81-7718Wthmrp flowsheetLisa Aichholz OPERATIONS FORESTER Work Phone: noMS CWM FMStart: 03-01-2025 End: 99-45-3813ushklfwymiMNHI AICHHOLDAVONot AvailableStart: 03-01-2025 End: 39-22-8635Luepgo outpatient visit 25 minutesLisa Shirley OPERATIONS FORESTER Work Phone: noms CW FMComment on above:Cervical spondylosis (Primary Dx); Chronic diastolic heart failure (HCC); Primary hypertension ; 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 ; Chronic kidney disease, stage 4 (severe) (HCC); Pulmonary hypertension (HCC); EDITH (generalized anxiety disorder) ; Other hyperlipidemia ; Neck pain; Recurrent major depression in partial remission ; Gastroesophageal reflux disease without esophagitis; Chronic obstructive pulmonary disease, unspecified COPD type (HCC)Start: 02-19-2025 End: 10-72-5093Yvasfcyis Result EncounterGeneric External Data ProviderNOMS External Department UnsolicitedStart: 02-19-2025 End: 82-98-5708Tivjonxss Result EncounterGeneric External Data ProviderNOMS External Department UnsolicitedStart: 02-19-2025 End: 64-46-4055umoxstwweaPIVAWHP Yeimy [facility] ALTUSMIRTHAClinton Memorial Hospital HospitalStart: 02-18-2025 End: 87-35-6294Dzcufvmql Result EncounterGeneric External Data ProviderNOMS External Department UnsolicitedStart: 02-18-2025 End: 75-60-8508Lcisjlqlf Result EncounterGeneric External Data ProviderNOMS External Department UnsolicitedStart: 01-27-2025 End: 74-71-1184Kehypt outpatient new 45 minutesDarrick Cannon PA-C Work Phone: [facility] - Pain Management ClinicComment on above:Cervical spondylosis (Primary Dx)Start: 01-27-2025 End: 43-32-8355jmoihjdffvKBYZZ N VERHOFFClinton Memorial Hospital HospitalStart: 01-19-2025 End: 70-35-4511Wgtldfe encounter procedureReplaced By [facility] Nephrology Adilson Work Phone: Start: 01-19-2025 End: 13-95-1786Ajrokw flowsHemant Watson OPERATIONS FORESTER Work Phone: noms CWM FMStart: 01-19-2025 End: 86-22-0317Yyjlnv flowsheetNoa Watson OPERATIONS FORESTER Work Phone: noms CWM FMStart: 01-19-2025 End: 41-24-3636thhmgvfboyTBEN AICHHOLZMercy Health – The [facility] Hospital Work Phone: Start: 01-19-2025 End: 44-25-5481Iqinjb outpatient visit 25 minutesLisa Watson OPERATIONS FORESTER Work Phone: noms CWM FMComment on above:Cervical spondylosis (Primary Dx); Neck pain; Primary hypertension (CMS/HCC); Chronic kidney disease, stage 4 (severe) (CMS/HCC); EDITH (generalized anxiety disorder) (CMS/HCC); H/O: lung cancer; MCI (mild cognitive impairment)Start: 65-90-3549ncgqtcgnbmXNYRSelect Specialty Hospitaltart: 54-09-2662ubvrnugglzHXHESelect Specialty Hospitaltart: 01-11-2025 End: 76-06-7513fhehctjymrUUCR Xavi WATSONLakeHealth TriPoint Medical Centerca Adventist Health Tularetart: 01-07-2025 End: 25-34-5761Dqhujk OnlyNoa Watson OPERATIONS FORESTER Work Phone: noms CWM FMComment on above:Neck pain (Primary Dx) Start: 12-24-2024 End: 96-14-3610WlwesgYfos Aichholz OPERATIONS FORESTER Work Phone: noms CWM FMComment on above:Primary hypertension (CMS/HCC); Other hyperlipidemia; Neck pain; Recurrent major depression in partial remission (HCC) (CMS/HCC); 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 (CMS/HCC); Gastroesophageal reflux disease without esophagitis; Chronic obstructive pulmonary disease, unspecified COPD type (CMS/HCC); EDITH (generalized anxiety disorder) (CMS/HCC)Start: 12-07-2024 End: 42-83-3511IrjhyyUrtx Aichholz OPERATIONS FORESTER Work Phone: noms CWM FMComment on above:Other hyperlipidemia; 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 (CMS/HCC); Primary hypertension (CMS/HCC); Recurrent major depression in partial remission (HCC) (CMS/HCC); EDITH (generalized anxiety disorder) (CMS/HCC)Start: 12-01-2024 End: 61-99-3661VqkkwoSatf Aichholz OPERATIONS FORESTER Work Phone: noms CWM FMComment on above:EDITH (generalized anxiety disorder) (CMS/HCC) (Primary Dx)Start: 11-19-2024 End: 20-76-0834Qdwzrg flowsheetLisa Simmonsholz OPERATIONS FORESTER Work Phone: NOMS CWM FMStart: 11-19-2024 End: 17-45-3556Dgwkji flowsheetLisa Aichholz OPERATIONS FORESTER Work Phone: noms CWM FMStart: 11-19-2024 End: 63-96-7379Jpgajx outpatient visit 25 minutesLisa Irisholz OPERATIONS FORESTER Work Phone: NOMS CWM FMComment on above:Neck pain (Primary Dx); Primary hypertension (CMS/HCC); Chronic kidney disease, stage 4 (severe) (CMS/HCC); EDITH (generalized anxiety disorder) (CMS/HCC); Functional gait abnormality; MCI (mild cognitive impairment)Start: 11-19-2024 End: 42-67-0509nwiillbtgjVSJE JULIANAot AvailableStart: 11-13-2024 End: 92-33-9899NcgcsuNqyl Aichholz OPERATIONS FORESTER Work Phone: noMS CWM FMComment on above:Primary hypertension (CMS/HCC); Other hyperlipidemia; Recurrent major depression in partial remission (HCC) (CMS/HCC); 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 (CMS/HCC); Gastroesophageal reflux disease without esophagitis; EDITH (generalized anxiety disorder) (CMS/HCC)Start: 11-12-2024 End: 13-30-6968ZzgqfbJkdy Rigobertohholz OPERATIONS FORESTER Work Phone: NOMS CWM FMComment on above:Primary hypertension (CMS/HCC); Other hyperlipidemia; Recurrent major depression in partial remission (HCC) (CMS/HCC); 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 (CMS/HCC); Gastroesophageal reflux disease without esophagitis; EDITH (generalized anxiety disorder) (CMS/HCC)Start: 11-09-2024 End: 42-67-9537JhehcuFvtz Aichholz OPERATIONS FORESTER Work Phone: NOMS CWM FMComment on above:Other hyperlipidemia (CMS/HCC); EDITH (generalized anxiety disorder) (CMS/HCC); Recurrent major depression in partial remission (HCC) (CMS/HCC)Start: 10-27-2024 End: 54-25-6912olwxxizqiyNkrjbespfEast [facility] Hospital Work Phone: Start: 10-27-2024 End: 52-12-3083Uqdcfhl encounter procedureReplaced By [facility] Nephrology Adilson Work Phone: Start: 10-20-2024 End: 70-85-5187xkhncnhvwzOFSWMercy Health Lorain Hospitaltart: 10-13-2024 End: 13-27-5013sommaeneusWEDVWhite Hospitaltart: 10-12-2024 End: 95-55-1413ktkcpyhaubRLLBPQ MOOK ROLONFacility:[facility] Start: 10-12-2024 End: 87-04-8434Lledirf encounter procedureEun Black DO Work Phone: NeurologyComment on above:Gait abnormality (Primary Dx); Memory loss; Neck painStart: 10-08-2024 End: 06-00-5520Fexxwz flowsheetLisa Aichholz OPERATIONS FORESTER Work Phone: NOMS CWM FMStart: 10-08-2024 End: 55-59-6898Kwmtgz flowsheetLisa Aichholz OPERATIONS FORESTER Work Phone: noMS CWM FMStart: 10-08-2024 End: 01-92-8186lionljzehsCYSK AICHHOLZNot AvailableStart: 10-08-2024 End: 21-23-8287Vvepem outpatient visit 25 minutesLisa Anaisz OPERATIONS FORESTER Work Phone: noMS CWM FMComment on above:Primary hypertension (CMS/HCC) (Primary Dx); Chronic obstructive pulmonary disease, unspecified (CMS/HCC); Chronic kidney disease, stage 4 (severe) (CMS/HCC); 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 (CMS/HCC); Gastroesophageal reflux disease without esophagitis; EDITH (generalized anxiety disorder) (CMS/HCC); Recurrent major depressive disorder, in full remission (CMS/HCC); Mixed hyperlipidemia (CMS/HCC); MCI (mild cognitive impairment); Other hyperlipidemia (CMS/HCC); Recurrent major depression in partial remission (HCC) (CMS/HCC); Chronic obstructive pulmonary disease, unspecified COPD type (CMS/HCC)Start: 09-08-2024 End: [id number] HANCOCKFacility:[facility] Hospitaltart: 09-08-2024 End: 22-61-7555Mpjkxvy encounter Lewis Polo PhD Work Phone: NeuropyschologyComment on above:Major neurocognitive disorder (HCC) (Primary Dx); JITENDRA (obstructive sleep apnea); Chronic kidney disease, unspecified CKD stage; Coronary artery disease, unspecified vessel or lesion type, unspecified whether angina present, unspecified whether chickaloon or transplanted heart; Complaints of memory disturbanceStart: 06-27-2024 End: 48-81-2548Mijfaf OnlyJayy Pollocktrick OPERATIONS FORESTER Work Phone: noms CW FMComment on above:Recurrent major depression in partial remission (HCC) (CMS/HCC)Start: 06-23-2024 End: 50-17-0748Dzcflyza Result EncounterBrittany Coronado OPERATIONS FORESTER Work Phone: noms External Department UnsolicitedStart: 06-23-2024 End: 23-01-3500Jcrjszbf Result EncounterBrittany Coronado OPERATIONS FORESTER Work Phone: noms External Department UnsolicitedStart: 06-23-2024 End: 42-29-2886vxtorycisiMXXNAMISHARMEET [facility] Tularetart: 06-17-2024 End: 38-63-3003Yuryba flowsheetBrittany Coronado OPERATIONS FORESTER Work Phone: NORZ CWM FMStart: 06-17-2024 End: 97-31-1245Mdnslo flowsheetBrittany Coronado OPERATIONS FORESTER Work Phone: NOQY CWM FMStart: 06-17-2024 End: 67-14-2415ghnswcumgrVUFIGUQT FITMILLICENTTRICKNot AvailableStart: 06-17-2024 End: 07-97-9014Isveaq outpatient visit 15 minutesJayy Coronado OPERATIONS FORESTER Work Phone: noms CWM FMComment on above:Primary hypertension (CMS/HCC) (Primary Dx); Other hyperlipidemia (CMS/HCC); 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 (CMS/HCC); Frequent falls; Functional gait abnormality; CKD (chronic kidney disease) stage 4, GFR 15-29 ml/min (CMS/HCC)Start: 06-10-2024 End: 25-71-1646Yhhqat flowsheetJayy Moyerk OPERATIONS FORESTER Work Phone: noms CWM FMStart: 06-10-2024 End: 50-28-4966Gmcrah flowsheetJayy Coronado OPERATIONS FORESTER Work Phone: noms CWM FMStart: 65-16-2827qtujbkehgtVLZQGEEX FITZPATRICKNot AvailableStart: 96-16-6209nuaoomkznsPGRLFX R MOOK [facility] 05-12-2024 End: 81-68-8496Qstpcygtpf hospital visit by physicianCt [facility] RadiologyComment on above:Memory loss [R41.3]Start: 05-04-2024 End: 98-83-5652eaoihgxpzdGCGWUS MOOK ROLONFacility:[facility] Start: 05-04-2024 End: 75-74-0682Comsynl encounter Matt Black DO Work Phone: NeurologyComment on above:Memory loss (Primary Dx); Abnormality of gaitStart: 03-31-2024 End: 48-98-8372ufjcbmyfdkAuhcsbtcwAshtabula County Medical Center Work Phone: Start: 03-31-2024 End: 93-99-0109Qrhqjfb encounter procedureReplaced By [facility] Nephrology Adilson Work Phone: Start: 03-28-2024 End: 40-96-3285SaxsmiRzhgsn Fawwad MD Work Phone: noms CW FMComment on above:Gastroesophageal reflux disease without esophagitis; Recurrent major depression in partial remission (HCC) ([facility]/HCC)Start: 03-11-2024 End: 45-07-3985wqjjsbxlefQZQHSY FAWWADNot AvailableStart: 09-19-2023 End: 62-28-7294Slsero outpatient visit 25 minutesShaikh Cornelio LEMON Work Phone: noms CW IMComment on above:Traumatic complete tear of left rotator cuff, subsequent encounter (Primary Dx); Recurrent major depression in partial remission (HCC) ([facility]); Other hyperlipidemia ([facility]); EDITH (generalized anxiety disorder) ([facility]); CKD (chronic kidney disease) stage 4, GFR 15-29 ml/min ([facility]); Gastroesophageal reflux disease without esophagitis; 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 ([facility]); Primary hypertension ([facility]); Chronic obstructive pulmonary disease, unspecified COPD type ([facility])Start: 09-05-2023 End: 30-09-3290Fmmnhbhgn Result EncounterGeneric External Data ProviderNOMS External Department UnsolicitedStart: 09-05-2023 End: 02-15-2675Tgooivnkc Result EncounterGeneric External Data ProviderNOMS External Department UnsolicitedStart: 08-26-2023 End: 84-25-7616Jowgacsar Result EncounterGeneric External Data ProviderNOMS External Department UnsolicitedStart: 08-26-2023 End: 29-02-2689Snmcwizra Result EncounterGeneric External Data ProviderNOMS External Department UnsolicitedStart: 07-29-2023 End: 76-58-4743Vbovganjl Result EncounterGeneric External Data ProviderNOMS External Department UnsolicitedStart: 07-29-2023 End: 15-14-1850Gjijwrzbr Result EncounterGeneric External Data ProviderNOMS External Department UnsolicitedStart: 04-09-2023 End: 61-89-6810Lnfmomkkd department patient visitNON STAFFFacility:[facility] Hospitaltart: 04-09-2023 End: 59-93-5608zshqjvypulJsuq Bakusamas Other [place] Other Start: 67-89-2941Ycojtdeyt encounterAzryan Pisano NephrologyStart: 03-13-2023 End: 88-08-9488ibkcpvtqvkSmvlibBfmqh: 01-25-2023 End: 43-71-1907bigifxymgmJlyz Bakusamas [facility] [place] Other Start: 42-81-0728Swvvci outpatient visit 25 minutes Aziz Norris NephrologyStart: 08-15-2022 End: 34-00-0211Siauvik encounter procedureJanchevy Kaufman DO Work Phone: NeurologyComment on above:MCI (mild cognitive impairment) (Primary Dx)Start: 07-27-2022 End: 53-93-7186ljogmjeqrvUUGVHA H FAWWADFacility:H1Ojssq: 07-10-2022 End: 16-32-4669wfrplzgiddAexi Bakusamas Other [facility] [place] Other Start: 30-79-7771Kyabjs outpatient visit 15 minutes Hanna Pisano Nephrology ClydeStart: 07-07-2022 End: 60-12-6242cnsewicwwmUGYY MANDOFacility:O4Mvyxm: 07-03-2022 End: 57-85-9143ajmoowbzmjQzcfg ChabanFacility:[facility] Start: 06-26-2022 End: 72-11-2952tifyeadprwYoxyev Johns Other [facility] [place] Other Start: 23-27-0899Hssxbootg encounterGleliseo ChoiFLAGSTAFF MEDICAL [facility]ENTER Family Medicine [place]Start: 06-05-2022 End: 96-47-5792umyerykvhsSdhhl Chaban Other [employer] Other Start: 28-84-5809Aajakt outpatient visit 25 minutes Wallacekaren Ira Pulmonary DiseaseStart: 05-29-2022 End: 31-66-6639dasbtjcstsHkjcqp [facility] Other [employer] Other Start: 34-61-3865Upmpawzra encounterAnupam [facility] PsychiatryStart: 61-36-6355Sfqlrmhiz encounterElsa Prescott Exercise PhysiologistCardiopulmonary & Vascular RehabComment on above:Phys Assistant - Other (In response to order placed in EPIC)Start: 04-11-2022 End: 03-88-6199Zqsrdhw encounter procedureMD Corona Monroe Work Phone: [facility]-Sleep LabStart: 04-10-2022 End: 68-47-5371Ipufsig encounter procedureAmanchevy Kaufman DO Work Phone: NeurologyComment on above:Recurrent major depression in partial remission (HCC) (Primary Dx); MCI (mild cognitive impairment)Start: 03-13-2022 End: 70-26-4668cabqgfplqrYfwsma Jha Other [employer] Other Start: 26-17-2377Gcuwmlyxk encounterAnupam [facility] PsychiatryStart: 03-05-2022 End: 60-27-0065tpjtdjgnsjGsseny Jha Other [employer] Other Start: 28-20-0259Clxwabbyb encounterAnupam [facility] PsychiatryStart: 02-28-2022 End: 52-58-6917eixgkkamecSlxyx Chaban Other [employer] Other Start: 97-22-3662Zkcrtezyj encounterCarolynbreanna ChaAbrazo [facility] Referral CoordinatorStart: 02-27-2022 End: 01-69-9487vswnbohfooDyyjw Mabel Other [facility]Openc[facility] [place] Other Start: 25-73-3658Pdamqf outpatient new 45 minutesCorona CasesoilaFLAGSTAFF MEDICAL [facility]ENTER Pulmonary DiseaseStart: 50-04-1796Vrvhfkkcc encounterKetiburcio Suazo [facility] [place]Start: 02-21-2022 End: 81-28-0870vwtxgvhmvaIJUNBG H FAWWADNorth [place] Other Start: 02-09-2022 End: 92-31-7814fedzvbfdrpCopp Fct Lab Main 11 Other Phone: pulmonary MedicineComment on above:SpirometryQuestion regarding MRI BRAIN WO IVCONStart: 02-09-2022 End: 54-82-1218Kbelabj encounter procedurePulm Fct Lab Main 11 Other Phone: ccf [facility] MAINStart: 02-08-2022 End: 51-70-2590Jwfwdc Flakito Nur MD Work Phone: RADDA HOSPComment on above:Cognitive impairment, mild, so stated (Primary Dx)Shortness of breath (Primary Dx)Cognitive impairment, mild, so stated [G31.84]Start: 15-04-2994Zixbtvyjr encounterAnupalexandro JhaFPG PsychiatryStart: 01-29-2022 End: 82-82-8982srkpoblvllCbyjv Carnahan Other noOpenc[facility] [place] Other Start: 80-12-1698Uqxcap outpatient visit 15 minutes Cristo SuazoPromise Hospital of East Los AngelesyStart: 01-05-2022 End: 53-78-3873arnjkijzlhTmsln Carnahan Other [employer] Other Start: 06-11-2497Vazdmxhuj encounterKetiburcio LambEisenhower Medical CenteryStart: 01-01-2022 End: 71-24-2578yieqhlqwpkStluj Gabriele Other [employer] Other Start: 42-67-7442Ffhkdbpgw encounterKetiburcio [facility] CenteryStart: 12-26-2021 End: 30-43-5903pcdjesmpnxOcekd Gabriele Other [employer] Other Start: 67-23-9969Bmewdu outpatient visit 25 minutes Cristo [facility] CenteryStart: 12-22-2021 End: 95-70-6492Sgtvpde encounter Lucio Bright MD Work Phone: NeurologyComment on above: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) (Primary Dx); Cognitive impairment, mild, so stated; Depression, unspecified depression typeStart: 12-18-2021 End: 72-44-4851dvxjbjiozgSpuuyc [employer] Other [employer] Other Start: 64-92-5098Vkjqqryyi encounterAnupam [facility] PsychiatryStart: 12-06-2021 End: 99-95-8007rpzodrguqlSluwcr [employer] Other [employer] Other Start: 08-78-9049Fazapmwdx encounterAnupam aF PsychiatryStart: 12-04-2021 End: 09-70-4815yszituxajaXljlh [facility] Other [employer] Other Start: 74-37-7060Nikdbkxdb encounterKetiburcio [facility] CenteryStart: 09-13-2021 End: 84-38-5259hupzsxpwsyQzucec [employer] Other [employer] Other Start: 01-13-5323Oxokbxnxb encounterAnupam [facility] PsychiatryStart: 08-16-2021 End: 96-96-4624prhbfnrwvwIkxjq Carnahan Other [place] Other Start: 68-21-1493Hqeqgbqfv encounterCristo SuazoFPG Family Medicine [place]kyStart: 42-09-9100Bqictbggs encounterCristo SuazoFLAGSTAFF [facility] Family Medicine [facility] CenteryStart: 81-75-7899Tjehua outpatient visit 25 minutesEssam HermannashiFPG Nephrology Clinic PhiladelphiaStart: 61-68-0400Kywhhahod encounter Susannah PaulinokarFPG Family Medicine PhiladelphiaStart: 04-03-2018 End: 63-95-5901Qbgoila encounterORVILLE AMBURNFacility:FTLONG BEACH COMMUNITY HOSPITALtart: 03-28-2018 End: 00-64-9402Jadzmjn encounterORVILLE AMBURNFacility:[facility] Procedures DateProcedureProcedure DetailPerforming ClinicianStart: 07-89-9856CNC NT-PROBNP SERPL-MCNCGeneric External Data ProviderStart: 91-74-6561Ejm routine ecg w/least 12 lds w/i&rDavilee Gant MD Work Phone: Start: 77-23-3411BEG CREATININEGeneric External Data ProviderStart: 17-37-0376YK ECHO DOPPLER COMPLETEGeneric External Data Provider Start: 14-81-7090PIBHBEFIE BLOOD PRESSUREGeneric External Data ProviderStart: 26-50-2022Feozs 1995 panel - Serum or PlasmaBill Gant MD Work Phone: Start: 64-48-1249Slmky panelBrharmeet Coronado OPERATIONS FORESTER Work Phone: Start: 92-92-9605Udzph 1995 panel - Serum or Plasma Misty Polo PhD Work Phone: Start: 96-55-7848Wf head/brain w/o contrast material Eun Black DO Work Phone: Start: 50-07-4554PY SHOULDER LEFT W/OGeneric External Data ProviderStart: 05-06-7706Npczx shoulder complete minimum 2 viewsGeneric External Data ProviderStart: 25-06-6891Nngrj shoulder complete minimum 2 views Generic External Data ProviderStart: 98-65-0168Gvnzkubwm rspse spmtry pre&post- brncdilat Hua Lao MD Work Phone: Start: 45-30-4643OQJ 3D POST PROCESSINGDriss Nur MD Work Phone: Start: 99-97-5220Aww brain brain stem w/o contrast materialSjoslyn Bright MD Work Phone: Start: 83-53-2339Sdojv depression screening assessment Jessie Bright MD Work Phone: Start: 29-31-6600EuktivuspxqRbsnnr Fawwad MD Work Phone: History of coronary artery bypass graftingHx of CABG Bill Gant MD Work Phone: History of coronary artery bypass graftingHx of CABG Bill Gant MD Work Phone: Plan of Treatment DateCare ActivityDetailAuthorStart: 60-08-8563Xomydfeen for malignant neoplasm of colonNOMS HealthcareStart: 71-11-4844Szsxp panelLipid ScreeningSelect Medical OhioHealth Rehabilitation Hospital - Dublintart: 98-59-7447Hiqjd panelLipid ScreeningSelect Medical [facility] Hospital - Dublintart: 26-90-5296LOU Vaccine (1 - 1-dose 75+ series)RSV Vaccine (1 - 1-dose 75+ series) [facility]ublintart: 07-60-5689Dmldc BMI ScreeningAdult BMI ScreeningProHolzer Medical Center [facility] SystemStart: 83-15-0392Bnwqopt ScreeningTobacco ScreeningProHolzer Medical Center – [facility] SystemStart: 04-57-7253Rzqco BMI ScreeningAdult BMI ScreeningProHolzer Medical Center – [facility] SystemStart: 01-55-0424Bxzpwpp ScreeningTobacco ScreeningProHolzer Medical Center – Jackson SystemStart: 07-64-3526Iaqilsmdas measurementSerum CreatinineMagruder Memorial Hospital Start: 05-31-2025 End: 32-99-3807Aetxvzt encounter wbqufowlv68/20/2025 1:20 PM EDT Office Visit [facility] CWM FM [address] [place] [address] Noa Watson NP [address] [place] [address] NOMS CWM FMStart: 05-02-2025 End: 29-24-5504TF Heart Perfusion W stress and W radionuclide IVNM CARDIAC PERF STRESS/PHARM Radiology Routine 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 Hx of CABG Other emphysema (HCC) ROMAN (dyspnea on exertion) Expected: 05/02/2025 (Approximate), Expires: 05/01/2026[facility] Work Phone: Comment on above:Expected: 05/02/2025 (Approximate), Expires: 05/01/2026Start: 04-16-2025 End: 02-54-8216Xuwhx metabolic 2000 panel - Serum or PlasmaBASIC METABOLIC PANEL Lab Routine Chronic heart failure with preserved ejection fraction (HCC) Expec dontae: 04/16/2025 (Approximate), Expires: 07/16/2025[facility] Work Phone: Comment on above:Expected: 04/16/2025 (Approximate), Expires: 07/16/2025Start: 04-16-2025 End: 24-95-3451Tusydwi encounter zcrhsyeef70/05/2025 11:00 AM EDT Office Visit Neurology [address] [place] [address] Ncmd Eun Black DO [address] [place], [place] [id number] 6month follow upNeurologyComment on above:6 month follow upStart: 04-15-2025 End: 37-18-1535ZQEN DIFFUSION CAPACITY (DLCO)LUNG DIFFUSION CAPACITY (DLCO) PFT Routine Other emphysema (HCC) Expected: 04/15/2025 (Approximate), Expires: 05/01/2026[facility] HospitalComment on above:Expected: 04/15/2025 (Approximate), Expires: 05/01/2026Start: 04-15-2025 End: 33-53-2432KIRF VOLUMESLUNG VOLUMES PFT Routine Other emphysema (HCC) Expected: 04/15/2025, Expires: 05/01/2026[facility] ClinicComment on above: Expected: 04/15/2025, Expires: 05/01/2026Start: 04-15-2025 End: 03-22-4543TKHJWQJVXO BASELINE ONLYSPIROMETRY BASELINE ONLY PFT Routine Other emphysema (HCC) Expected: 04/15/2025 (Approximate), Expires: 05/01/2026 [facility] HospitalComment on above:Expected: 04/15/2025 (Approximate), Expires: 05/01/2026Start: 04-15-2025 End: 65-14-2943YH Chest PA and LateralXR CHEST 2V FRONTAL/LAT Radiology Routine Other emphysema (HCC) Expected: 04/15/2025 (Approximate),Expires: 05/01/2026 [facility] ClinicComment on above:Expected: 04/15/2025 (Approximate), Expires: 05/01/2026Start: 38-97-3719Dxovcbbnu [facility] CenterStart: 03-10-2025 End: 43-05-7777XH Cervical spine WO contrastMR cervical spine without contrast Imaging Routine Cervical spondylosis Expected: 03/10/2025, Expires: 03/10/2026 [facility] Work Phone: Comment on above:Expected: 03/10/2025, Expires: 03/10/2026Start: 03-10-2025 End: 03-85-5086Mfnyltd encounter awmpoatux62/30/2025 9:45 AM EDT Office Visit [facility] [address] [place] [address] Darrick Cannon, PA-C [address] [place] [address] [facility] ClinicStart: 03-01-2025 End: 52-54-4574Qwoiupl encounter bghgxkooz27/21/2025 1:40 PM EDT Office Visit [facility] [address] [place] [address] Noa Watson, PARI [address] [place] [address] NOMS CWM FMStart: 02-19-2025 End: 25-08-1794Gxbzsdtgv to same day surgery oxqwtd1502/19/2025 2:58 PM EDT - 02/19/2025 3:07 PM EDT Surgery [facility] Pain P rocedures [address] [place] [address] Justo Cherry MD [address], [place] [phone] INJECTION FACET JOINT Bilateral C 5/6,6/7 [41053 (CPT )][facility] - Pain ProceduresComment on above:INJECTION FACET JOINT Bilateral C 5/6,6/7 [57227 (CPT )]Start: 02-19-2025 End: 83-20-8288Twy dx/ther agt pvrt facet jt crv/thrc 1 levelINJECTION FACET JOINT Cervical spondylosis 02/19/2025 2:58 PM EDTFREMONT PAINStart: 02-19-2025 Subsequent hospital visit by qmnrokulu26/11/2025 2:58 PM EDT Hospital Encounter [facility] [address] [place] [phone] Justo Cherry MD [address], [place] [address] [facility] Pain ProceduresStart: 01-19-2025 End: 22-48-1527Bpnihfl encounter pgtfcsmiq12/10/2025 1:00 PM EDT Office Visit [facility] [address] [place] [address] Noa Watson NP [address] [place] [address] [facility] FMStart: 01-07-2025 End: 04-86-8136IT Cervical spine 2 or 3 ViewsXR cervical spine 2 or 3 views Imaging Routine Neck pain Expected: 01/07/2025 (Approximate), Expires: 01/07/2026[facility] Work Phone: Comment on above:Expected: 01/07/2025 (Approximate), Expires: 01/07/2026Start: 11-19-2024 End: 89-91-1290Vhqxmiu encounter procedureNOMS [facility] FMComment on above:Chronic obstructive pulmonary disease, unspecified COPD type (CMS/HCC) (Primary Dx); 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 (CMS/HCC); Atherosclerosis of arteries of extremities (CMS/HCC); Primary hypertension (CMS/HCC); Gastroesophageal reflux disease without esophagitis; Chronic kidney disease, stage 4 (severe) (CMS/HCC); EDITH (generalized anxiety disorder) (CMS/HCC)Start: 09-16-2024 End: 81-27-5139Yoendcl encounter jpqleldpz41/05/2025 1:00 PM EST Office Visit [facility] [address] [place] [address] Jayy Coronado NP [address] [place] [address] [facility] FMStart: 27-92-7379Cajmqrr Directive Discussion Advance Directive DiscussionSelect Medical OhioHealth Rehabilitation Hospital - Dublintart: 01-01-2025Medicare Advantage Annual Wellness VisitMedicare Advantage Annual Wellness VisitMagruder Memorial Hospital Start: 06-30-2024 End: 41-41-9177vgkbvwruil69/19/2024 11:30 AM EST Evaluation [facility] FB PT [address] [place] [address] Babak Aquino, PT [address] [place] [address] NOMS FB PTStart: 06-17-2024 End: 72-95-7469Dvarg 1996 panel - Serum or PlasmaLipid panel Lab Routine Primary hypertension (CMS/HCC) Expected: 06/17/2024 (Approximate), Expires:06/17/2025 NOMS HealthcareComment on above:Expected: 06/17/2024 (Approximate), Expires: 06/17/2025Start: 06-10-2024 End: 39-60-2823Xzicpjk encounter procedureNOMS CW FMComment on above:Arrived Start: 11-02-1880Sjnppwgz ScreeningDiabetes ScreeningSelect Medical [facility] Rehabilitation Hospital - Dublintart: 05-12-2024 End: 98-54-7237Qdxqacu encounter lmqhpofrs69/01/2024 7:45 AM EDT Appointment Radiology [address] [place] [address] ct wo contrast RadiologyComment on above:ct wo contrastStart: 20-78-7999Mcxdo-19 Vaccine ( season)Covid-19 Vaccine ( season)[facility]art: 64-77-4017Wvupmokwv vaccinationInfluenza Vaccine (#1)[facility]art: 12-24-2023 End: 96-70-5567Wuuhmlh encounter ssbyxcakt28/14/2024 1:15 PM EDT Office Visit [facility] [address] [place] [address] Shaikh Grimes MD [address] [place] [address] [facility] CWM IMStart: 09-19-2023 End: 08-01-8055YYY W Auto Differential panel - BloodCBC and differential Lab Routine Recurrent major depression in partial remission (HCC) ([facility]/HCC) CKD (chronic kidney disease) stage 4, GFR 15-29 ml/min (CMS/[facility]) 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 ([facility]) Primary hypertension ([facility])Expected: 09/19/2023 (Approximate), Expires: 09/19/2024[facility] Work Phone: Comment on above:Expected: 09/19/2023 (Approximate), Expires: 09/19/2024Start: 09-19-2023 End: 55-87-1642Fjnuorkrpmfsx metabolic 2000 panel - Serum or PlasmaComprehensive metabolic panel Lab Routine Recurrent major depression in partial remission (HCC) ([facility]) CKD (chronic kidney disease) stage 4, GFR 15-29 ml/min ([facility]) 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 ([facility]) Primary hypertension ([facility]) Expected: 09/19/2023 (Approximate), Expires: 09/19/2024[facility] HealthcareComment on above:Expected: 09/19/2023 (Approximate), Expires: 09/19/2024Start: 09-19-2023 End: 22-92-4303Xywqbpmfhq [Mass/volume] in UrineCreatinine, urine, random Lab Routine CKD (chronic kidney disease) stage 4, GFR 15-29 ml/min ([facility]) Expected: 09/19/2023 (Approximate), Expires: 09/19/2024[facility] HealthcareComment on above:Expected: 09/19/2023 (Approximate), Expires: 09/19/2024Start: 09-19-2023 End: 88-53-8226Qnvey 1996 panel - Serum or PlasmaLipid panel Lab Routine Other hyperlipidemia ([facility]) Expected: 09/19/2023 (Approximate), Expires:09/19/2024 [facility] HealthcareComment on above:Expected: 09/19/2023 (Approximate), Expires: 09/19/2024Start: 09-19-2023 End: 03-83-1027Ifmcygc, urine, randomProtein, urine, random Lab Routine CKD (chronic kidney disease) stage 4, GFR 15-29 ml/min ([facility]/HCC)Expected: 09/19/2023 (Approximate), Expires: 09/19/2024[facility] HealthcareComment on above:Expected: 09/19/2023 (Approximate), Expires: 09/19/2024Start: 12-23-2462Zbstird Directive DiscussionAdvance Directive DiscussionSelect Medical [facility] Hospital - Dublintart: 66-38-7868Uxadezbik vaccinationInfluenza Vaccine (#1)[facility] HealthcareStart: 16-70-1530Trmpm depression screening assessmentDEPRESSION SCREENINGSelect Medical [facility]ublintart: 92-36-1708KHISIVP DIRECTIVE DISCUSSIONADVANCE DIRECTIVE DISCUSSIONSelect Medical [facility] - Dublintart: 23-41-7718Cojutqunh vaccinationINFLUENZA (#1)[facility]art: 02-09-2022 End: 15-05-2608NFWMPADUCL WITH DILATOR IF OBSTRUCTEDZanesville City Hospital Work Phone: comment on above:Expected: 02/09/2022, Expires: 03/10/2023Start: 12-22-2021 End: 22-60-5410NMCFVRKH TOTAL W/REFLEXSYPHILIS TOTAL W/REFLEX Lab Routine Cognitive impairment, mild, so stated 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) Depression, unspecified depression type Expected: 12/22/2021, Expires: 02/21/2022[facility] Work Phone: comment on above:Expected: 12/22/2021, Expires: 02/21/2022tart: 12-22-2021 End: 98-54-2995Sxtlwnvgjep [Units/volume] in Serum or PlasmaTSH BLD Lab Routine Cognitive impairment, mild, so stated Dementia due to medical condition with beh avioral disturbance (HCC) Depression, unspecified depression type Expected: 12/22/2021, Expires: 02/21/2022[facility] Work Phone: comment on above:Expected: 12/22/2021, Expires: 02/21/2022tart: 12-22-2021 End: 22-94-0974ZJAMSOT B12 BLOODVITAMIN B12 BLOOD Lab Routine Cognitive impairment, mild, so stated 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) Depression, unspecified depression type Expected: 12/22/2021, Expires: 2C[facility] Work Phone: comment on above:Expected: 12/22/2021, Expires: 02/21/2022tart: 22-89-1812HINTW-19 VACCINE (4 - Booster for Pfizer series) COVID-19 VACCINE (4 - Booster for Pfizer series)[facility]: 92-60-6513BKGEO-19 VACCINE (4 - Booster for Pfizer series)COVID-19 VACCINE (4 - Booster for Pfizer series)[facility]: 69-32-4821ZVJTRNW DIRECTIVE DISCUSSIONADVANCE DIRECTIVE DISCUSSIONCleBucyrus Community Hospitaltart: 45-14-0780Niav Risk ScreeningFall Risk ScreeningProHolzer Medical Center – Jackson SystemStart: 2018 PNEUMOCOCCAL: 65+ (1 - PCV)PNEUMOCOCCAL: 65+ (1 - PCV)[facility]: 57-84-0326KRLRGYBTB AGE 65 AND OVER WITH 5YR LOOKBACK (#1)PNEUMOVAX AGE 65 AND OVER WITH 5YR LOOKBACK (#1)[facility]: 26-06-2843RGL Vaccine (1 - Risk 60-74 years 1-dose series)RSV Vaccine (1 - Risk 60-74 years 1-dose series) [facility]: 77-49-0222KNSLODTH CANCER SCREENING DISCUSSIONPROSTATE CANCER SCREENING DISCUSSIONCleBucyrus Community Hospitaltart: 96-81-6878Nxyotwmumjgnwz of varicella zoster vaccineZoster (Shingles) Vaccine (1 of 2)[facility] SystemStart: 49-24-6913UMEGRESE VACCINE (1 of 2)SHINGRIX VACCINE (1 of 2) [facility]: 48-29-8403HANKVTTSQ (FIT-DNA)COLOGUARD (FIT-DNA)[facility]: 16-04-9912UsukoccdkacQAKXWUYETPRPwfemvvmq ClinicStart: 1998 COLORECTAL CANCER SCREENINGCOLORECTAL CANCER SCREENINGSelect Medical [facility]intart: 39-59-6999KQ COLONOGRAPHYCT COLONOGRAPHYCleBucyrus Community Hospitaltart: 1998 DIABETES SCREENDIABETES SCREENCleBucyrus Community Hospitaltart: 03-91-1533WWGZV OCCULT BLOODFECAL OCCULT BLOODSelect [facility]art: 00-15-9569Bqdacgoag for malignant neoplasm of colonSelect Medical [facility] - [facility]ublintart: 18-45-9479ASDKMRVOBUROTXEPEOZGFYYPZA [facility]: 42-34-2350Iswxu panelLipid ScreeningMagruder Memorial Hospital Start: 13-87-1991IGCOM SCREENLIPID SCREENSelect [facility]ublintart: 1972 DTaP,Tdap and Td Vaccines (1 - Tdap)DTaP,Tdap and Td Vaccines (1 - Tdap) [facility] Alexander Campustart: 90-91-2583Qlljq microalbumin profileSelect Medical [facility] - [facility]ublintart: 09-99-8204Okjmz BMI Follow Up PlanAdult BMI Follow Up PlanFrye Regional Medical Center Alexander Campustart: 05-02-0877Errqgk PCP Team Chronic Disease VisitAnnual PCP Team Chronic Disease VisitSelect Medical [facility] - Dublintart: 26-86-2997Drdzuhz Screening Anxiety ScreeningSelect Medical [facility] - Dublintart: 55-50-1129Sqihcyzne B surface antibody levelLDL CholesterolSelect Medical [facility] - Dublintart: 26-75-4118DBGDYLCEY C SCREENING HEPATITIS C SCREENINGSelect Medical [facility] - [facility]ublintart: 35-08-6078Frirqykyk C screening Hepatitis C ScreeningSelect Medical [facility] - [facility]ublintart: 96-48-9799Pyxsnjvynz Screening Depression ScreeningFrye Regional Medical Center Alexander Campustart: 1953Medicare Annual Wellness (AWV)Medicare Annual Wellness (AWV)[facility] HealthcareStart: 1955 Screening for malignant neoplasm of colonJORDAN VALLEY [facility] HealthcareStart: 37-62-8235Xfkndtg CounselingTobacco CounselingAultman HospitalCBC W Auto Differential panel - BloodCBC and differential Lab Routine Primary hypertension (CMS/HCC) Ordered: 06/17/2024[facility] Work Phone: Comment on above:Ordered: 06/17/2024omprehensive metabolic 2000 panel - Serum or PlasmaComprehensive metabolic panel Lab Routine Primary hypertension (CMS/HCC) Ordered: 06/17/2024[facility] Cancer CenterComment on above:Ordered: 06/17/2024 End: 60-07-2655SW Head WO contrastCT BRAIN WO IVCON Radiology Routine Memory loss 1 Occurrences starting 05/04/2024 until 5COhio[facility] Work Phone: Comment on above:1 Occurrences starting 05/04/2024 until 06/03/2025 End: 20-86-8012Cnz brain brain stem w/o contrast materialMRI BRAIN WO IVCON Radiology Routine Cognitive impairment, mild, so stated 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) Depression, unspecified depression type 1 Occurrences starting 12/22/2021 until 01/21/2023[facility] Work Phone: comment on above:1 Occurrences starting 12/22/2021 until 01/21/2023Renal function 2000 panel - Serum or PlasmaCleveland ClinicRenal function 1999 panel - Serum or [facility] HospitalRenal function 1999 panel - Serum or [facility] Immunizations Immunization DateImmunizationNotesCare FeyxmsqiWvqfkvjo33-60-9054IYDRQ-88 Vaccine Pfizer - Documentation Purposes OnlyCorona Monroe Other [employer] Other 10-485392-42-3795dmohzjgro, high dose seasonal, preservative-freeSusannah Nevarez Other [employer] Other 10-576217-70-1223Qgwqywtaw, High-dose Seasonal, Quadrivalent, Preservative FreeShaikh Cornelio LEMON Work Phone: [facility] Cancer CenterCmxoxubeno37-64-0774uzdenwkws virus vaccine, unspecified formulationSselene Grimes MD Work Phone: [facility]03-30-2021COVID-19 PfizerSusannah Nevarez Other [employer] Other 03-963247-06-3788GYEWA-10 Vaccine Pfizer - Documentation Purposes OnlySusannah Nevarez Other [employer] Other 12343272-41-7290ialpesuvb, high dose seasonal, preservative-freeSusannah Nevarez Other noOpencare W[place] Other 1801149-44-2405tjqjuryvnejn polysaccharide vaccine, 23 valentSusannah Nevarez Other noOpencare [place] Other 12-009085-87-6542rhuxrkckh virus vaccine, unspecified formulationCleveland Clinic12-23-2020Influenza, High-dose Seasonal, Quadrivalent, Preservative Kofi Grimes MD Work Phone: [facility] Cancer CenterXgpghehnbi07-20-8720mtwphgdrnymd conjugate vaccine, 13 valentSusannah Nevarez Other noPeople[employer] Other Payers DatePayer CategoryPayerPolicy [id number] (Managed Care) [id number] 2025Medicare [place] [id number] [id number] 2024MedicaidAETNA MEDICARE ADVANTAGE [id number] [id number]94.92586-47-9444Vhpu-uwx [id number] BLUE ACCESS PPO [id number] 2020-Present [phone] [address] [place] [address] PPO [id number] MedicareMEDICARE MEDICARE A AND B [id number] 2015-Present [phone] [place] [address] [id number] 2016Medicare [id number] 2.16.840.1.213154.3.57[id number] 2.16.840.1.706369.3.57[id number] 2.16.840.1.163388.3.57[id number] 2.16.840.1.874289.3.579.[id number] 2..840.1.915833.3.579.2.593843-06-2114Vwegcsb5256235 2..840.1.183022.3.579.2.173622-01-1172Uiqpdka6721181 2.840.1.599761.3.579.2.631304-40-3429Eqdppku0941062 2..840.1.108619.3.579.2.193407-57-3232Axopjhl53657077 2..840.1.542595.3.579.2.060618-39-0867Kptgbml2884041 2..840.1.102800.3.579.2.621326-49-2256Uczrtpg999445031 2..840.1.893855.3.579.2.379991-51-3173Dkpoyze064561789 2..840.1.567100.3.579.2.097761-05-2056Glhltfv623537786 2.16.840.1.018129.3.579.[id number] 2.16.840.1.174760.3.579.2.958049-14-6366Wegndhe969337734 2..840.1.765091.3.579.2.027885-82-4456Ythjtmy910542603 2.16.840.1.856448.3.579.2.380388-85-7293Qlczlce194040638 2..840.1.417945.3.579.2.012282-06-6930Ggduexl743387733 2..840.1.340788.3.579.2.891426-74-4827Fxqadbj012436271 2..840.1.571601.3.579.2.172346-34-6154Gigqigl492452441 2.840.1.412911.3.579.2.854926-78-1544Ytgpqfq48523241 2.0.1.503965.3.579.2.906305-33-9864Jvwh Cross Blue [id number] 2..8.971938.[id number] 2..4.802588.8077-01-1900 Private Health [id number]-[id number]-[id number] [id number] 9i9ui405-w2m9-1292-15ot-[id number] 2.0.1.799773.3.579.2.405Hznsrfc32035104 2..1.644936.3.579.2.531 Social History DateTypeDetailFacilityStart: 12-22-2021 End: 23-54-0046Psqzbmc smoking status NHISNever smoked tobaccoMagruder Memorial Hospital Start: 12-22-2021 End: 36-50-1780Aplfndt use and exposureUser of smokeless tobaccoMagruder Memorial Hospital End: 07-93-0854Jgkcquv of tobacco useChews TobaccoSelect Medical [facility] - [facility]ublintart: 43-20-7185Wbb Assigned At BirthNot on fileSelect Medical [facility] - Dublintart: 12-12-2021 End: 34-05-0285Brtsythz to SARS-CoV-2 (event)Not sureSelect Medical [facility] - Dublintart: 07-22-2023 End: 07-85-7651Ics [facility]igned At [facility] HealthcareStart: 09-30-2020 End: 81-54-0680Zhrpfvj smoking status NHISEx-smoker (finding)[facility]tart: 42-60-5566Cxj [facility]igned At [facility] Hospitaltart: 06-13-3430Vwscjbm use and exposureFormer smokeless tobacco userMagruder Memorial HospitalHistory of tobacco useCurrent smokerNOPR HealthcareHistory of tobacco useCigarette SmokerJORDAN [facility]LEY [facility] HealthcareStart: 07-12-2023 End: 63-05-8270Vkcpjgw use and exposureSmokeless tobacco non-userNOPR Healthcare Start: 07-12-2023 End: 95-15-3759Vdmqwvt intakeLifetime non-drinker (finding)[facility] HealthcareStart: 07-22-2023 End: 72-28-7088Dekdftj of Social functionNOMS HealthcareWithin the last year, have you been afraid of your partner or ex-partner?NoNOMS HealthcareAre you now , , , , never or living with a partner? MarriedNOMS HealthcareHow often to you have a drink containing alcohol?NeverNOMS HealthcareStart: 12-05-2021 End: 82-16-0327Oun many standard drinks containing alcohol do you [...] before (I/we) got money to buy more.Never trueNOPR HealthcareStart: 07-12-2023 Alcohol Commentcaffeine: 1-2 cups per dayEllis Fischel Cancer CenterStart: 10-02-2019 End: 62-22-5886YtlHopm (finding)[facility] ClinicHow often do you need to have someone help you when you read instructions, pamphlets, or other written material from your doctor or pharmacy [SILS]SometimesNOMS HealthcareAre you now , , , , never or living with a partner?SeparatedJORDAN VALLEY [facility]ICAL [facility] HealthcareHow hard is it for you to pay for the very basics like food, housing, medical care, and heatingNot very hardNOPR HealthcareDo you feel stress - tense, restless, nervous, or anxious, or unable to sleep at night because yourmind is troubled all the time - these days [OSQ]To some extentEllis Fischel Cancer CenterStart: 66-80-8665Wvwxkpbxa beverage intakeEx-drinker (finding)[facility] Memorial HospitalNEGATED: Highlighted rowStart: NINFHistory of tobacco usePassive smokerEllis Fischel Cancer Center Medical Equipment Procedure CodeEquipment CodeEquipment Original TextEquipment IdentifierDates Repair, hernia, umbilicalAbdominal hernia surgical mesh, composite-polymer ()[id number] FDAStart: 09-30-2020 Goals DatePatient GoalDesired Activity/StatePersonal health goal Functional Status HdlxIcmlvwinapJhycbvOgzdlbty33-73-6901Rjy often do you have a drink containing alcohol?Never 02/28/2025 4:11 PM EDT Mychart, Generic NeverEllis Fischel Cancer Center 23-96-9709Uwmyrozgjg statusPatient does not drink 02/28/2025 4:11 PM EDT Verimatrixhart, Generic Patient does not drinkEllis Fischel Cancer CenterCmfdsetmnj19-37-9765Xuntgdo Health Questionnaire 2 item (PHQ-2) [Reported][facility] Clinical Notes 05-23-2021 to 06-19-2025 Note Date & WtduHhevQzchmqal96-05-9159 Note Attestation signed by Italo Lyles MD at 06/20/2025 8:50 PM I saw the patient with the resident. I agree with the above findings. No evidence of cellulitis. No evidence of infection. We are applying peel and place negative for pressure. Will discharge the patient on antibiotics see him in 1 week as follow-up. [facility] Vascular and Wound Surgery DAILY PROGRESS [...] Service Please direct primary wound calls to: [phone] Please direct primary vascular calls to: [phone] This note was created with the assistance of a speech-recognition program. While intending to generate a document that accurately reflects the content of the encounter, no guarantee can be provided that every mistake has been identified and corrected by editing '[facility]11-08-2025 Note [facility] checked [employer] portal for Ready Care vac approval, however, no updates have been made to patients account. [facility] had emailed back and forth with [employer] support coordinator 06/18/25 regarding Ready Care vac approval as patient is medically ready for hospital discharge. Last email sent to [email or web address] support coordinator has gone unanswered. [facility] has re-ordered Ready Care Vac, and re-uploaded necessary documentation to assist in approval. [facility] will continue to check [employer] portal for approval, and provide updates as able. 1230: Primary RN requested update on Ready Vac approval. [facility] attempted to call [place] [email or web address] Rep, Breanne, but did not receive answer. [facility] called [employer] directly to inquire about Ready Care Vac approval. [employer] rep, Guillermo, stated that he sees that everything has been uploaded, and that someone will be working on the case as soon as possible. Guillermo stated that on the weekends when staffing is clinical trial manager, their computerized system does not automatically assign cases for review/approval. Guillermo stated that he will push this case to a dining service worker for review and approval, and will have the dining service worker contact [facility] once updates are available. Guillermo also stated that this process can take up to 3 hours. [facility] reiterated that all necessary documentation was submitted both via fax, and via online portal on 06/18/25, and that the patient has been medically ready for hospital discharge since 06/18/25. Guillermo stated that he would do his best to get this taken care of as soon as possible. Update provided to Primary RN. [facility] will continue to follow. 1258: Received call from [employer] Rep Ian regarding Ready Vac approval. Ian has stated that Ready Vac has been approved, and she will order patients home supplies for shipment. [facility] ordered Ready Care Vac from [employer] based on available Ready Care Vac listed on [employer] website. Primary RN notified. [facility]11-07-2025 NotePt selected [facility] for [facility] and [facility] was sent. Family was notified of discharge today. Awaiting wound vac placement for discharge.[facility]11-06-2025 Note Attestation signed by Italo Lyles MD [...] the wound with Betadine and a dressing. [facility] Vascular and Wound Surgery DAILY PROGRESS [...] Home meds resumed [place] Oziel Calixto MD General Surgery Resident, PGY-1 Vascular/Wound Service Please direct primary wound calls to: [phone] Please direct primary vascular calls to: [phone] (more content not included)... [facility]11-05-2025 NoteVancomycin Timed Date/Time Value Ref Range Status [...] for 48 hours and no gram positive growing.[facility]11-05-2025 NoteUnBlanchard Valley Health System Vascular and Wound Surgery DAILY PROGRESS NOTE [...] Home meds resumed [place] home [place] Will Keys PA-C Vascular/Wound Service Please direct [...] PA-C Consult ordered by: KAT [facility] 06-16-2025 Note06/16/25 6977 Admission Assessment Questions Verify insurance with patient [...] Status Interested Does the patient have a director of casework assigned to them through their insurance? No [...] able to send link and activate MyChart? [facility]11-05-2025 NotePharmacy Dosing Service - Vancomycin Progress Note Pharmacy is consulted for the dosing and evaluation of: Drug: Vancomycin Duration: Day 1 of empiric therapy Indication: complicated skin and soft tissue infection Fnxpi-rv-odjgvz Other Antimicrobial Regimens: cefepime 1g q8h for [...] Total body weight: 79.4 kg (175 lb) [place] body weight: 63.8 kg (140 lb 10.5 [...] or questions Thank you, Khalida Ivan, PharmD, 06/16/25[facility] 06-15-2025 Note06/15/25 5501 Financial Resource Strain How hard is it [...] were you homeless or living in a residential (including now)? N Transportation Needs In the [...] than 3 How often do you attend yazidi or restoration services? Never Do you belong to any clubs or organizations such as yazidi groups, unions, fraternal or athletic groups, or [...] In the past 12 months has the [employer], gas, oil, or water [employer] threatened to shut off services in your home? 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 No [...] for RW; SW consulted for DME referral. [facility]10-29-2025 NoteUnBlanchard Valley Health System Vascular and Wound Surgery DAILY PROGRESS NOTE [...] Service Please direct primary wound calls to: [phone] Please direct primary vascular calls to: [phone] This note was created with the assistance of a speech-recognition program. While intending to generate a document that accurately reflects the content of the encounter, no guarantee can be provided that every mistake has been identified and corrected by editing '[facility]10-28-2025 Note [facility] Surgical Intensive Care Unit Progress Note [...] Value Ventricular Rate 54 Atrial Rate 54 IA Interval 190 QRS DURATION 120 QT Interval 492 QTC CALCULATION(BAZETT) 466 P [place] 36 R-[place] -22 T Wave [place] 95 Impression Sinus bradycardia Intra-ventricular conduction delay Nonspecific ST and T wave abnormality Abnormal ECG When compared with ECG of 08-APR-2025 07:50, no significant changes was noted Confirmed by Saqib Saldana ([id number]) on 05/11/2025 11:35:47 PM Assessment The patient is a 70 y.o. year old (more content not included)...[facility]10-28-2025 NoteThis report has been cancelled.[facility]10-28-2025 NoteUnBlanchard Valley Health System Vascular Surgery DAILY PROGRESS NOTE Subjective/Interval History [...] PGY-4 Vascular Surgery Service For non-urgent questions, [facility] Chat may be used [phone], M-F. For urgent concerns, please call [phone], or ask the dehydrogenation operator to connect you to the on-news camera person. For after-hours concerns, please page [phone], or ask the dehydrogenation operator to connect you to the on-news camera person. This note was created with the assistance of a speech-recognition program. While intending to generate a document that accurately reflects the content of the encounter, no guarantee can be provided that every mistake has been identified and corrected by editingMemorial Health System [facility]10-27-2025 Note Patient: Kel Castillo Procedure Summary Date: 06/07/25 Room / Location: [address] / [facility] Operating Room Anesthesia Start: 1450 Anesthesia Stop: [...] were no known notable events for this encounter.[facility]10-27-2025 NoteAirway Date/Time: 06/07/2025 3:09 PM Reason: elective Airway not difficult General Information and Staff Patient location during procedure: OR Anesthesiologist: Judith Malloy MD Resident/OFFICE COORDINATOR RECEPTIONIST/CAA: Young Carcamo MD Performed: resident/OFFICE COORDINATOR RECEPTIONIST/MATHIEU Patient Condition Indications for airway management: anesthesia [...] approach: 1 Number of other approaches attempted: [facility]UnTr[facility] 06-07-2025 NoteArterial Line: Date/Time: 06/07/2025 [...] Staffing Performed: resident/NABILA/MATHIEU Anesthesiologist: Judith Malloy MD Resident/OFFICE COORDINATOR RECEPTIONIST: Young Carcamo MD Performed by: Young Carcamo MD Authorized by: Judith Malloy MDMemorial Health System [facility]10-27-2025 NotePlan same as belowUnTrinity Health System [facility]10-27-2025 Note Relevant Hx: Can walk only 10 steps prior to stopping due to pain Course: Previous stenting of the right SFA, continues to be symptomatic Today's Plan: OR today for right fem-pop bypass with graft, 2g Ancef given for surgical prophylaxisMemorial Health System [facility]10-26-2025 NotePatient: Kel Castillo Procedure Information Date/Time: 06/07/25 1100 Procedures: CREATION, BYPASS, ARTERIAL, FEMORAL TO POPLITEAL, USING GRAFT (Right) LOWER EXTREMITY ANGIOGRAM WITH POSSIBLE INTERVENTION (Left) LOWER EXTREMITY INTERVENTION Location: [facility] OR [address] [place] [address] / [facility] Operating Room Surgeons: Italo Lyles MD Relevant Problems Cardio (+) Atherosclerosis of arteries of extremities (+) Hypertensive disorder (+) Migraine GI (+) Gastroesophageal reflux disease without esophagitis /Renal (+) Chronic kidney disease, stage 4 (severe) ([facility]/HCC) Neuro/Psych (+) Migraine Pulmonary (+) Chronic obstructive pulmonary disease, unspecified ([facility]/HCC) Clinical information reviewed: TTE 04/27/2025 LVEF 40-45% Normal RV size and function Biatrial enlargement Left heart catheterization 05/11/2025 FINAL IMPRESSIONS: Severe, three-vessel chickaloon coronary artery disease There are 2 out [...] products. Plan discussed with attending. Additional Equipment RequestsMemorial Health System [facility]10-15-2025 Note Nephrology Clinic Patient: Kel Castillo; 70 [...] His diet is high in potatoes / central african fries. We discussed low potassium diet in [...] NITRITEU NEGATIVE 10/05/2019 HOME (more content not included)...[facility]10-06-2025 NoteLeft voicemail to schedule nephrology referralMemorial Health [facility]09-18-2025 NoteSpoke to daughter Glenda in reference to cardiac cath per Dr. Tolliver. Daughter verbalized understanding and agreed with plan of care. Labs fax[facility] to [facility], [facility] NoteHNO ID: [id number] Author: EUN TRENT DO Service: ? Author Type: Physician Type: Progress Notes Filed: 04/29/2025 16:05 Note Text: [facility]rology Follow up/ Established patient visit Individuals who were included in, or assisted with the encounter were: Samir Castillo Eun Black DO Chief Complaint/Issues: Samir Castillo is a 70 year old male seen in the [facility] for General Neurology for: Memory loss [...] TABLET BY MOUTH TWIC (more content not included)...[facility]09-18-2025 NoteHNO ID: [id number] Author: CIELO CHILDERS MA Service: ? Author Type: Assistant Store Leader Type: Progress Notes Filed: 04/29/2025 16:05 Note [...] 1 SD worse than population and warrants attentionOhiohealth [facility]ering[facility]09-10-2025 NoteDIVISION OF VASCULAR SURGERY HPI Kel [...] has had an HUBER study done at [facility] on 02/23/25 where right PT was, 0.55. right DP 0.53, right TBI 0.32, left PT 0.6, left DP 0.63, left TBI 0.51. He had a aortogram done by Dr. 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 Patient is taking [...] Date Cancer (CMS/HCC) Coronary artery disease Hyperlipidemia HypertensionMemorial Health [facility]09-10-2025 NoteDIVISION OF VASCULAR SURGERY HPI Kel Castillo is a 69 y.o. male who presents today for No chief complaint on file. Patient referred to us for PAD. HE has had a HUBER study done at [facility] on 02/23/25. Patient with a history [...] Date Cancer (CMS/HCC) Coronary artery disease Hyperlipidemia HypertensionMemorial Health System [facility]08-25-2025 Telephone encounter Note* Telephone Encounter - Mariana Wheeler LPN - 04/05/2025 4:02 PM EDT Chest x-ray results received from [facility]. Scanned in for review. Mariana Wheeelr LPN [facility]08-25-2025 Miscellaneous Notes* Telephone Encounter - Mariana Wheeler LPN - 04/05/2025 4:02 PM EDT Chest x-ray results received from [facility]. Scanned in for review. Mariana Wheeler LPN documented in this encounterMagruder Memorial Hospital08-22-2025 Telephone encounter Note * Telephone Encounter - Brianne Patterson LPN - 04/02/2025 8:21 AM EDT I spoke to Nini and informed them of 's response and recommendations. She voiced understanding and will call back with fax number for lab of choice. Brianne Patterson LPN [facility]08-22-2025 Miscellaneous Notes* Telephone Encounter - Brianne Patterson [...] 2 weeks that can be done in [facility] * Telephone Encounter - Brianne Patterson LPN - 04/02/2025 8:05 AM EDT I spoke to Nini and informed them of 's response to lab results and recommendations. She voiced understanding and wants to go ahead and start both medications. [facility] in [place] on file is pharmacy of choice. Brianne [...] To: Bill Gant MD documented in this encounterMagruder Memorial Hospital08-22-2025 Note* Addendum Note - Bill Gant MD - 04/02/2025 8:18 AM EDTAddended by: BILL GANT on: 04/02/2025 08:18 AM Modules accepted: Orders [facility]08-22-2025 Telephone encounter Note* Telephone Encounter - Bill Gant MD - 04/02/2025 8:17 AM EDT If the Jardiance is too expensive just have them cancel that particular prescription. I will order a BMP for about 2 weeks that can be done in [place] dac [facility]08-22-2025 Telephone encounter Note* Telephone Encounter - Brianne Patterson LPN - 04/02/2025 8:05 AM EDT I spoke to Nini and informed them of 's response to lab results and recommendations. She voiced understanding and wants to go ahead and start both medications. [facility] in [place] on file is pharmacy of choice. Brianne Patterson LPN [facility]08-22-2025 Telephone encounter Note* Telephone Encounter - Brianne [...] 5:02 PM EDT To: Bill Gant MD [facility]08-21-2025 Instructions* Patient Instructions* Bill Gant MD - [...] get back with you. Please ask your lockstitch topstitcher to send results of the peripheral artery imaging that is planned to look at your legs in the next few weeks. documented in this encounterMagruder Memorial Hospital08-21-2025 History of Present illness Narrative* Bill Gant MD - 04/01/2025 2:20 PM EDT Chief Complaint No chief complaint on file. History of Present Illness: Samir Castillo is a 69-year-old male with a history of CAD, status post-CABG, HTN, HLD, COPD, PAD, stage 4 CKD, and mild cognitive impairment, presenting for a new patient visit. [place] lives in [place] most of his care in [place] at [facility] but just wants a second opinion [...] supplemental oxygen. He has not seen a brancher recently and has not had any pulmonaryfunction tests. He denies any history of diabetes, liver disease, or excessive alcohol use. He denies any internal bleeding or significant bruising. He denies any use of NSAIDs such as Advil or Aleve. He has a history of mild cognitive impairment and is no longer driving. He relies on his family fortransportation. 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 He quit smoking 40 [...] 1/2 TABLETS BY MOUTH EVERY DAY omega 9-kcn-ekq-fish oil (FISH OIL) 100-160-1,000 mg cap Take [...] and Plan: 1. 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(I25.10) 2. Hx of [...] CRI (chronic renal insufficiency), stage 4 (severe) ([facility]) (N18.4) Stage 4 renal insufficiency; [...] planned peripheral [facility]liver at [facility]. - Discussed potential interventions (balloon angioplasty, stenting, surgery) depending on angiogramfindings. - Advised patient and family to ensure results are sent to our office for review. 9. Other emphysema ([facility]) (J43.8) COPD with mild baseline [...] avoid him having to come back to [place] or [place] for all this testing. If they are done locally in the [facility] or in [place] I would then asked that results be sent to our office when available. Thank you Electronically signed by Bill Gant MD on March 31, 2025, 7:13 AM [1] Social History Tobacco Use Smoking status: Never Smokeless tobacco: Former Types: Chew Quit date: 07/14/2022 documented in this encounterMagruder Memorial Hospital08-21-2025 NoteHNO ID: [id number] Author: BILL GANT MD Service: ? Author Type: Physician Type: Progress Notes Filed: 04/01/2025 15:11 Note Text: Chief Complaint No chief complaint on file. History of Present Illness: Samir Castillo is a 69-year-old male with a history of CAD, status post-CABG, HTN, HLD, COPD, PAD, stage 4 CKD, and mild cognitive impairment, presenting for a new patient visit. He lives in [place] and gets most of his care in [place] at [facility] but just wants a second opinion [...] supplemental oxygen. He has not seen a brancher recently and has not had any pulmonary [...] family for transportation. He worked at a [employer] before retiring. He quit smoking 40 years [...] 1/2 TABLETS BY MOUTH EVERY DAY omega 3-xdb-dta-fish oil (FISH OIL) 100-160-1,000 mg cap Take [...] no resting tachypnea H (more content not included)...[facility]07-30-2025 History of Present illness Narrative* Darrick Cannon PA-C - 03/10/2025 9:45 AM EDT [facility] [address] [place] [address] Patient: Kel Castillo Jr. Sex: male : 1955 Age: 69 y.o. PCP: NOA WATSON, CUFF MATCHER-FLIGHT OPERATIONS ENGINEER 03/10/2025 Kel Castillo Jr. is here for [...] disease Chronic kidney disease, stage 4 (severe) ([facility]) 09/19/2023 Chronic obstructive pulmonary disease, unspecified ([facility]) 03/11/2024 CKD (chronic kidney disease) stage 3 Closed nondisplaced fracture of greater tuberosity of left humerus with routine healing 09/19/2023 COPD (chronic obstructive pulmonary disease) ([facility]) Coronary artery disease 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 09/19/2023 Depression Dyspnea and respiratory abnormalities 09/18/2013 66 pk/yr history of smoking. Quit in 1994, when diagnosed with NSCLC and treated with RULobectomy and XRT. Also has extensive coronary disease, with CABG. Sees cardiology at [place]. Anxiety, HTN, CKD IIIb. PCP started albuterol [...] echocardiogram Hypertension Intermittent claudication 08/25/2012 Lung cancer ([facility]) MCI (mild cognitive impairment) 04/12/2022 Migraine 07/18/2012 [...] 02/19/2025 Performed by Justo Cherry MD at [facility] No Known Allergies History reviewed. No [...] Resource Strain: Low Risk (02/28/2025) Received from [facility] Overall Financial Resource Strain (CARDIA) Difficulty of Paying Living Expenses: Not very hard Food Insecurity: No Food Insecurity (03/10/2025) Hunger Screening Food Insecurity - Worry: Never True Food Insecurity - Inability: Never True Transportation Needs: No Transportation Needs (02/28/2025) Received from [facility] PRAPARE - Transportation Lack of Transportation (Medical): No Lack of Transportation (Non-Medical): No Physical Activity: Inactive (02/28/2025) Received from [facility] Exercise Vital Sign Days of Exercise per Week: 0 days Minutes of Exercise per Session: 0 min Stress: Stress Concern Present (02/28/2025) Received from [facility] [place] [employer] - Occupational Stress Questionnaire Feeling of Stress : To some extent Social Connections: Socially Isolated (02/28/2025) Received from [facility] Social Connection and Isolation Panel [NHANES] Frequency of Communication with Friends and Family: More than three times a week Frequency of Social Gatherings with Friends and Family: Once a week Attends Muslim Services: Never Active Member of Clubs or Organizations: No Attends Club or Organization Meetings: Never Marital Status: Interpersonal Safety: Not At Risk (02/28/2025) Received from [facility] Humiliation, Afraid, Rape, and Kick questionnaire Fear of Current or Ex-Partner: No Emotionally Abused: No Physically Abused: No Sexually Abused: No Housing Instability: Low Risk (02/28/2025) Received from [facility] Housing Stability Vital Sign Unable to [...] Cannon PA-C 03/10/25 1049 documented in this encounterAultman Hospital07-21-2025 History of Present illness Narrative* Noa [...] (65 Fe) MG tablet 1 tablet, Daily Broiwddtlhu-Gprgspzox-Apghdl (Trelegy Ellipta) 100-62.5-25 MCG/ACT aerosol powder 1 [...] HISTORY Past Medical History: Diagnosis Date Alcoholism ([facility]) ( quit drinking 25 years ago) Anxiety and depression Bronchitis Chicken pox CKD (chronic kidney disease), symptom management only, stage 4 (severe) ([facility]) Claudication of calf muscles COPD (chronic obstructive pulmonary disease) ([facility]) Coronary artery disease Depression with [...] Addressed This Visit 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 Established with [facility] Cardiology Current meds: asa, amlodipine, statin, plavix, [...] (HCC) Is prescribed trelegy inhaler Relevant Medications Yutxpbzdktz-Elmnefndb-Jqgkmb (Trelegy Ellipta) 100-62.5-25 MCG/ACT aerosol powder Primary [...] AM EDTAssociated Problem(s): 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 Established with [facility] Cardiology Current meds: asa, amlodipine, statin, plavix, [...] imdur, gaby, b kelsy, documented in this encounterEllis Fischel Cancer [id number] Instructions* Patient Instructions* Noa Watson NP - 03/01/2025 1:40 PM EDT Please call dr amezcua's office to get an appt documented in this encounterEllis Fischel Cancer [id number] History of Present illness Narrative* Darrick Cannon PA-C - 01/27/2025 10:00 AM EDT [facility] [address] [place] [address] Patient: Kel Castillo Jr. Sex: male : 1955 Age: 69 y.o. PCP: NOA WATSON, GERARDO-FLIGHT OPERATIONS ENGINEER 01/27/2025 Kel Castillo Jr. is here for [...] kidney disease COPD (chronic obstructive pulmonary disease) ([facility]) Coronary artery disease Hypertension Neck [...] Resource Strain: Medium Risk (07/22/2023) Received from [facility] Overall Financial Resource Strain (CARDIA) Difficulty of Paying Living Expenses: Somewhat hard Food Insecurity: No Food Insecurity (01/27/2025) Hunger Screening Food Insecurity - Worry: Never True Food Insecurity - Inability: Never True Transportation Needs: No Transportation Needs (07/22/2023) Received from [facility] PRAPARE - Transportation Lack of Transportation (Medical): No Lack of Transportation (Non-Medical): No Physical Activity: Inactive (07/22/2023) Received from [facility] Exercise Vital Sign Days of Exercise per Week: 0 days Minutes of Exercise per Session: 0 min Stress: Stress Concern Present (07/22/2023) Received from [facility] [place] [employer] - Occupational Stress Questionnaire Feeling of Stress : Very much Social Connections: Moderately Isolated (07/22/2023) Received from [facility] Social Connection and Isolation Panel [NHANES] Frequency of Communication with Friends and Family: More than three times a week Frequency of Social Gatherings with Friends and Family: Twice a week Attends Muslim Services: Never Active Member of Clubs or Organizations: No Attends Club or Organization Meetings: Never Marital Status: Interpersonal Safety: Unknown (10/03/2023) Received from [facility] [place] [facility] Fear of Current or Ex-Partner: Not on file Emotionally Abused: Not on file Physically Abused: Not on file Sexually Abused: Not on file Physically or Sexually Abused: Not on file Housing Instability: Low Risk (07/22/2023) Received from [facility] Housing Stability Vital Sign Unable to [...] CANNON PA-C who performed the above service. oNa Anderson CNA 01/27/25 1109 Darrick Cannon PA-C 01/27/25 1115 documented in this encounterLakeHealth TriPoint Medical CenterO&P Pro [id number] Instructions* Patient Instructions* Noa Anderson CNA - [...] the nearest emergency room. documented in this encounterAultman Hospital06-10-2025 History of Present illness Narrative* ALVARO [...] (ANTARA) 43 mg, Oral, Daily with breakfast Kuwwxlyphhm-Cpcmwiqdh-Rjhcrh (Trelegy Ellipta) 100-62.5-25 MCG/ACT aerosol powder 1 [...] HISTORY Past Medical History: Diagnosis Date Alcoholism ([facility]) ( quit drinking 25 years ago) Anxiety and depression ([facility]) Bronchitis Chicken pox CKD (chronic kidney disease), symptom management only, stage 4 (severe) ([facility]) Claudication of calf muscles ([facility]) COPD (chronic obstructive pulmonary disease) ([facility]) Coronary artery disease ([facility]) Depression with anxiety GERD (gastroesophageal reflux disease) Heart disease High blood pressure ([facility]) High cholesterol ([facility]) History of medical problems Hernia History of migraine headaches History of psychiatric care Kidney disease Lung cancer ([facility]) JITENDRA (obstructive sleep apnea) Peripheral vascular disease ([facility]) Umbilical hernia URTI (infection of [...] H/O: lung cancer EDITH (generalized anxiety disorder) ([facility]) Current meds: wellbutrin, buspar, sertraline [...] mgmt Trial prednisone taper documented in this [facility]06-10-2025 Instructions* Patient Instructions* Noa Watson NP - 01/19/2025 1:00 PM EDT Pain mgmt documented in this [facility]04-10-2025 History of Present illness Narrative* Noa Watson [...] (ANTARA) 43 mg, Oral, Daily with breakfast Enqmgrohgmj-Uslezihqu-Daarlh (Trelegy Ellipta) 100-62.5-25 MCG/ACT aerosol powder 1 [...] HISTORY Past Medical History: Diagnosis Date Alcoholism ([facility]) ( quit drinking 25 years ago) Anxiety and depression ([facility]) Bronchitis Chicken pox CKD (chronic kidney disease), symptom management only, stage 4 (severe) ([facility]) Claudication of calf muscles ([facility]) COPD (chronic obstructive pulmonary disease) ([facility]) Coronary artery disease ([facility]) Depression with anxiety GERD (gastroesophageal reflux disease) Heart disease High blood pressure ([facility]) High cholesterol ([facility]) History of medical problems Hernia History of migraine headaches History of psychiatric care Kidney disease Lung cancer ([facility]) JITENDRA (obstructive sleep apnea) Peripheral vascular disease ([facility]) Umbilical hernia URTI (infection of [...] Therapy Chronic kidney disease, stage 4 (severe) ([facility]) Continue with Nephrology Check labs yearly and prn EDITH (generalized anxiety disorder) ([facility]) Current meds: wellbutrin, buspar, sertraline Pt's daughter is a [employer] OPERATIONS FORESTER, I have given daughter present today options for addressing anxiety: Buspar TID, olanzapine at 2.5mg or quetiapine She will talk with sister and go from there Primary hypertension ([facility]) Please check blood pressure daily [...] AM EDTAssociated Problem(s): EDITH (generalized anxiety disorder) ([facility]) Current meds: wellbutrin, buspar, sertraline Pt's daughter is a [employer] OPERATIONS FORESTER, I have given daughter present today options for addressing anxiety: Buspar TID, olanzapine at 2.5mg or quetiapine She will talk with sister and go from there * Noa Watson NP - 11/19/2024 7:01 AM EDTAssociated Problem(s): Chronic kidney disease, stage 4 (severe) ([facility]) Continue with Nephrology Check labs [...] AM EDTAssociated Problem(s): 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 (CMS/HCC) Established with [facility] Cardiology Current meds: asa, amlodipine, statin, plavix, imdur, gaby, b kelsy, and prn nitro * Noa Watson NP - 11/19/2024 6:59 AM EDTAssociated Problem(s): Chronic obstructive pulmonary disease, unspecified Is prescribed trelegy inhaler documented in this [facility]04-10-2025 Instructions* Patient Instructions* Noa Watson NP - 11/19/2024 1:00 PM EDT Anxiety; we could try increase buspirone to 15mg three times daily Or consider adding olanzapine at 2.5mg at bed time ??low dose of quetiapine like 25mg at bedtime I will order PT and speech therapy at [facility] Neck: try stretching exercises, baclofen 10mg pill at bedtime as needed for muscle spasms documented in this [facility]03-18-2025 Evaluation note* Diagnosis Onset Date Resolution Status [...] through stage 4 chronic kiacuteJune 2024 4:22pm [facility] Work Phone: [phone] [facility] Clinic Note Chief Complaint: [...] occluded right coronary artery. 2. Severe 3-vessel chickaloon coronary artery disease. 3. Patent left internal [...] Laboratory Report FINAL IMPRESSIONS: 1. Severe 3-vessel chickaloon coronary artery disease. 2. A 2/3 bypass grafts patent; the radial artery graft to the posterior descending artery is occluded. 3. Severe, heavily calcific lesion of the right common femoral artery; this is a new angiographic finding. Assessment: Coronary a (more content not included)...[facility] 10-12-2024 Instructions* Patient Instructions* Eun Trent, - 10/12/2024 11:31 AM EST Please do physical therapy and speech therapy. Please follow-up with your sleep apnea doctor about a better mask as this can help memory. Follow-up in six months. He and his family may benefit from the following community resources: [facility] Agencies on Aging -- , https://aging.[place].gov/about-us/who-we-are/wtlg-rugamwbr-as-aging Visit your local Senior Center to participate in stimulating activities and socialize with others -https://www.careSpredfast.org/tttm18_kdtv_hzvgzd_ugipzeh.htm He can use strategies to help optimize [...] the high antioxidant foods, omega-3 fatty acids, quna (including cinnamon, turmeric, and grace), and more generally, the Mediterranean-DASH Intervention for Neurodegenerative Delay (MIND) diet, is recommended. https://www.abhay.nih.gov/health/wmmv-sd-ob-know-ab hsc-otsg-stl-fuhskotncu-wpjvqviirz-mrpduvh If he is to continue doing complex tasks such as financial adviser on his own, his family members are encouraged to routinely review his work and assist as necessary. Re-evaluation in approximately 18-24 months (or as needed). documented in this encounterMagruder [facility] Hospital03-03-2025 NoteHNO ID: [id number] Author: MANDEEP LATASHA, EUN, DO Service: ? Author Type: Physician Type: Progress Notes Filed: 10/12/2024 14:47 Note Text: [facility] General Neurology Follow up/ Established patient visit Individuals who were included in, or assisted with the encounter were: Samir Castillo Eun Black, Chief Complaint/Issues: Samir Castillo is a 69 year old male seen in the [facility] for General Neurology for: Memory loss [...] here for follow-up of (more content not included)...[facility]03-03-2025 History of Present illness Narrative* Eun Trent DO - 10/12/2024 11:28 AM EST Images from the original note were not included. [facility] General Neurology Follow up/ Established patient visit Individuals who were included in, or assisted with the encounter were: Samir Castillo Eun Black DO Chief Complaint/Issues: Samir Castillo is a 69 year old male seen in the [facility] for General Neurology for: Memory loss [...] 1/2 TABLETS BY MOUTH EVERY DAY omega 2-kyu-lre-fish oil (FISH OIL) 100-160-1,000 mg cap Take [...] which included preparing to see the patient, icjx-wo-mdxl patient care, completing clinical documentation, obtaining and/or [...] 68 (Recommend sleep study) documented in this encounterMagruder Memorial Hospital03-03-2025 NoteHNO ID: [id number] Author: SANTIAGO JAY MA Service: ? Author Type: Assistant Store Leader Type: Progress Notes Filed: 10/12/2024 14:47 Note [...] Sleep Apnea Probability Score: 70 (Recommend sleep study)[facility]02-27[facility] History of Present illness Narrative* Noa [...] no compliance problems. Hypertensive end-organ damage includes CAD/TN. Heart Problem This is a chronic problem. [...] (ANTARA) 43 mg, Oral, Daily with breakfast Btzxlreqbdv-Mlplxqhzh-Gkbwbx (Trelegy Ellipta) 100-62.5-25 MCG/ACT aerosol powder 1 [...] HISTORY Past Medical History: Diagnosis Date Alcoholism ([facility]) ( quit drinking 25 years ago) Anxiety and depression ([facility]) Bronchitis Chicken pox CKD (chronic kidney disease), symptom management only, stage 4 (severe) ([facility]/HCC) Claudication of calf muscles ([facility]/HCC) COPD (chronic obstructive pulmonary disease) (CMS/HCC) Coronary artery disease ([facility]/HCC) Depression with anxiety GERD (gastroesophageal reflux disease) Heart disease High blood pressure (CMS/HCC) High cholesterol ([facility]/HCC) History of medical problems Hernia History of migraine headaches History of psychiatric care Kidney disease Lung cancer (CMS/HCC) JITENDRA (obstructive sleep apnea) Peripheral vascular disease ([facility]/HCC) Umbilical hernia URTI (infection of the upper [...] and neuropsych testing 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 ([facility]) - Primary Current meds: plavix, amlodipine, statin, b kelsy, nitroglycerin prn No acute symptoms, cont with [facility] Cardiology Relevant Medications clopidogrel (Plavix) 75 MG tablet isosorbide mononitrate ER (Imdur) 60 MG 24 hr tablet metoprolol tartrate (Lopressor) 50 MG tablet Mixed hyperlipidemia ([facility]) On statin and fenofibrate Check labs yearly and prn dose changes Relevant Medications atorvastatin (Lipitor) 80 MG tablet fenofibrate micronized (Antara) 43 MG capsule Chronic kidney disease, stage 4 (severe) ([facility]) Continue with Nephrology Gastroesophageal reflux disease without esophagitis Recommendations: freq small meals, nothing to eat or drink at least 2 hours prior to bed, limit caffeine, alcohol, as well as spicy foods Meds to limit or avoid if possible: NSAIDS Elevate HOB if possible Current med: pepcid Relevant Medications famotidine (Pepcid) 20 MG tablet EDITH (generalized anxiety disorder) ([facility]) Current meds: wellbutrin XL, buspar, sertraline, and trazodone EDITH 7=4 Had recent neuropsych testing has fu appt in a few weeks Relevant Medications sertraline (Zoloft) 100 MG tablet traZODone (Desyrel) 100 MG tablet Chronic obstructive pulmonary disease, unspecified ([facility]) Current meds: albuterol, trelegy Cannot afford trelegy, but does help breathing #2 samples trelegy: 100/25, XM5N, exp 01/04 Recurrent major depressive disorder, in full remission ([facility]) Current med: wellbutrin, sertralin, and trazodone PHQ 9=9 Primary hypertension ([facility]) Please check blood pressure daily [...] Recurrent major depression in partial remission (HCC) ([facility]) Relevant Medications buPROPion XL (Wellbutrin XL) 300 MG 24 hr tablet busPIRone (Buspar) 15 MG tablet sertraline (Zoloft) 100 MG tablet traZODone (Desyrel) 100 MG tablet * Noa Watson NP - 10/08/2024 7:12 AM ESTAssociated Problem(s): Recurrent major depressive disorder, in full remission ([facility]) Current med: wellbutrin, sertralin, and trazodone PHQ 9=9 * Noa Watson NP - 10/08/2024 7:11 AM ESTAssociated Problem(s): Mixed hyperlipidemia ([facility]) On statin and fenofibrate Check labs yearly and prn dose changes * Noa Watson NP - 10/08/2024 7:10 AM ESTAssociated Problem(s): EDITH (generalized anxiety disorder) ([facility]) Current meds: wellbutrin XL, buspar, [...] AM ESTAssociated Problem(s): 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 (CMS/HCC) Current meds: plavix, amlodipine, statin, b kelsy, nitroglycerin prn No acute symptoms, cont with [facility] Cardiology * Noa Watson NP - 10/08/2024 7:06 AM ESTAssociated Problem(s): Chronic obstructive pulmonary disease, unspecified (CMS/HCC) Current meds: albuterol, trelegy Cannot afford trelegy, but does help breathing #2 samples trelegy: 100/25, XM5N, exp 01/04 documented in this [facility]02-27-2025 Instructions* Patient Instructions* Noa Watson NP - 10/08/2024 1:40 PM EST No med dose changes documented in this [facility]01-28-2025 NoteHNO ID: [id number] Author: MISTY PLOO, PhD Service: ? Author Type: Psychologist Type: Progress Notes Filed: 09/10/2024 16:35 Note Text: [facility] Department of Neurology Section of Neuropsychology Neuropsychological Evaluation Report CONFIDENTIAL Patient: Samir Castillo Date of : 1955 Referred by: Eun Black MD (Neurology) Education: 10 Handedness: R Language(s): Syriac Date of Evaluation: 09/08/2024 Mr. Castillo is [...] Problems with mother's /delivery: no Early SALES SUPPORT ENGINEER infection, high fever, significant childhood illness: no SCHOOL HISTORY: Years of education completed: 10; left school early because he did not like it. 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 Castillo is [...] Problems with mother's /delivery: no Early SALES SUPPORT ENGINEER infection, high fever, significant childhood illness: no SCHOOL HISTORY: Years of education completed: 10; left school early because he did not like it. 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 https://www.abhay.nih.gov/health/wgke-dq-fl-know-ab esp-tzto-iql-pyhtxgyuou-cnxcfmphfr-phmlkcj If he is to continue doing complex tasks such as financial adviser on his own, his family members are encouraged to routinely review his work and assist as necessary. Re-evaluation in approximately 18-24 months (or as needed). These results have not been reviewed with the patient, but he will be provided access to this note via gokit. It has been a pleasure to participate in his care. Please feel free to contact me if you have any questions regarding this report or my recommendations. Misty Polo, PhD, ABPP-CN Board Certified Clinical Neuropsychologist [facility] [place] The purpose of this evaluation was explained [...] = 2 hours Neuropsychological test administration/scoring by irs agent = 4 hours TESTS ADMINISTERED: Waite Anxiety Inventory, Waite Depression Inventory-2, Mas Judgment of Line Orientation (Form H), [place] Naming Test-2, Brief Visuospatial Memory Test- Revised (Form 2), Clinical Interview, Jessie Chowdhury Executive Function System (Color-Word Interference), Castro Verbal Learning Test-Revised (Form 2), Language Screen, Performance Validity Testing, Gregory Osterrieth Complex Figure Test (Miles System, copy), [place] Making Test (Parts A & B), Verbal Fluency (CFL, Animals/Fruits/Vegetables), Veena Adult Intelligence Scale-IV (Digit Span, Coding, Matrix Reasoning), Veena Memory Scale-IV (Logical Memory), [place] Card Sorting Test - 128 documented in this encounterMagruder Memorial Hospital11-11-2024 History of Present illness Narrative* Jayy [...] kidney disease) stage 4, GFR 15-29 ml/min ([facility]) Following with Nephrology. Avoid nephrotoxic [...] Addressed This Visit 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 ([facility]) Relevant Medications nitroglycerin (Nitrostat) 0.4 MG SL tablet Other hyperlipidemia ([facility]) Currently taking Atorvastatin 80mg Denies any myalgias. Continue current regimen. CKD (chronic kidney disease) stage 4, GFR 15-29 ml/min ([facility]) Following with Nephrology. Avoid nephrotoxic agents. Continue to monitor. Primary hypertension ([facility]) - Primary Currently taking amlodipine [...] referral to Physical Therapy documented in this encounterEllis Fischel Cancer [id number] Instructions* Patient Instructions* Jayy Coronado NP - [...] TO THE EMERGENCY ROOM!!! documented in this encounterEllis Fischel Cancer [id number] History of Present illness Narrative* Claire Vilchis [...] PATIENT PRESENTS WITH AN IMPLANTABLE OR ATTACHED CRACKER OFF: No RADIOLOGY DEPARTMENT: CT; Exam(s) Completed: Brain PERIPHERAL IV DATA: Not applicable SIGNED BY: KORY Bolivar May 12, 2024 8:35 AM documented in this encounterMagruder Memorial Hospital10-01-2024 NoteHNO ID: [id number] Author: CLAIRE VILCHIS CT Service: ? Author Type: Tieing Machine Operator Type: Progress Notes Filed: 05/12/2024 08:35 Note [...] PATIENT PRESENTS WITH AN IMPLANTABLE OR ATTACHED CRACKER OFF: No RADIOLOGY DEPARTMENT: CT; Exam(s) Completed: Brain PERIPHERAL IV DATA: Not applicable SIGNED BY: KORY Bolivar May 12, 2024 8:35 [facility]09-23-2024 Instructions* Patient Instructions* Eun Trent DO - 05/04/2024 10:[address] scan of brain Physical therapy Follow-up after neuropsych Please do not climb ladders or do other activities for high fall risk. documented in this encounterMagruder Memorial Hospital09-23-2024 History of Present illness Narrative* Eun Trent DO - 05/04/2024 9:30 AM EDT Images from the original note were not included. [facility] Follow up/ Established patient visit Individuals who were included in, or assisted with the encounter were: Samir Castillo Eun Black DO Chief Complaint/Issues: Samir Castillo is a 69 year old male seen in the [facility] for: Memory loss [...] over medications. No adjustment in 3 Has OPERATIONS FORESTER s He denies hallucinations. MOCA December 2021 [...] 1/2 TABLETS BY MOUTH EVERY DAY omega 1-wvh-gjh-fish oil (FISH OIL) 100-160-1,000 mg cap Take [...] which included preparing to see the patient, qwmi-cz-fejd patient care, completing clinical documentation, obtaining and/or [...] population and warrants attention documented in this encounterMagruder Memorial Hospital09-23-2024 NoteHNO ID: [id number] Author: EUN TRENT DO Service: ? Author Type: Physician Type: Progress Notes Filed: 05/04/2024 22:17 Note Text: [facility] Follow up/ Established patient visit Individuals who were included in, or assisted with the encounter were: Samir Castillo Eun Black DO Chief Complaint/Issues: Samir Castillo is a 69 year old male seen in the [facility] for: Memory loss [...] over medications. No adjustment in 3 Has OPERATIONS FORESTER s He denies hallucinations. MOCA December 2021 [...] 50 mg tablet,extended release (more content not included)...[facility]02-08-[facility] History of Present illness Narrative* Shaikh Cornelio MD - 09/19/2023 5:35 PM ESTAssociated Problem(s): EDITH (generalized anxiety disorder) ([facility]) Improved now. C/w current regimen. * Shaikh Cornelio MD - 09/19/2023 5:35 PM ESTAssociated Problem(s): Other hyperlipidemia (CMS/HCC) Check Lipid panel. * Shaikh Cornelio MD - 09/19/2023 5:35 PM ESTAssociated Problem(s): Recurrent major depression in partial remission (HCC) ([facility]) Symptoms improved and well controlled [...] kidney disease) stage 4, GFR 15-29 ml/min ([facility]) Has an appointment with Nephrology. Avoid NSAIDS. C/w current regimen. * Shaikh Cornelio MD - 09/19/2023 5:32 PM ESTAssociated Problem(s): 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 ([facility]) S/p CABG. On ASA, BB, Imdur, plavix, statin Denies CP, SOB, palpitations. Following [facility] cardiology. * Shaikh Cornelio MD - 09/19/2023 [...] in the morning. Take with meals. [DISCONTINUED] Vbjpezjeras-Vpuvqbcwi-Ghcego (Trelegy Ellipta) 100-62.5-25 MCG/ACT aerosol powder Inhale [...] Recurrent major depression in partial remission (HCC) ([facility]) Symptoms improved and well controlled [...] Comprehensive metabolic panel 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 ([facility]) S/p CABG. On ASA, BB, Imdur, plavix, statin Denies CP, SOB, palpitations. Following [facility] cardiology. Relevant Medications aspirin 81 MG EC tablet isosorbide mononitrate ER (Imdur) 60 MG 24 hr tablet metoprolol tartrate (Lopressor) 50 MG tablet clopidogrel (Plavix) 75 MG tablet Other Relevant Orders CBC and differential Comprehensive metabolic panel Other hyperlipidemia ([facility]) Check Lipid panel. Relevant Medications atorvastatin (Lipitor) 80 MG tablet fenofibrate micronized (Antara) 43 MG capsule Other Relevant Orders Lipid panel CKD (chronic kidney disease) stage 4, GFR 15-29 ml/min ([facility]) Has an appointment with Nephrology. Avoid NSAIDS. C/w current regimen. Relevant Orders CBC and differential Comprehensive metabolic panel Protein, urine, random Creatinine, urine, random Gastroesophageal reflux disease without esophagitis Relevant Medications famotidine (Pepcid) 20 MG tablet EDITH (generalized anxiety disorder) ([facility]) Improved now. C/w current regimen. Relevant Medications sertraline (Zoloft) 100 MG tablet traZODone (Desyrel) 100 MG tablet Traumatic complete tear of left rotator cuff - Primary Noted on MRI - following Orthopedics. Patient has a follow up appointment next week and it appears that he will likely need surgery for it. Other Visit Diagnoses Primary hypertension ([facility]) Relevant Medications amLODIPine (Norvasc) 5 MG tablet isosorbide mononitrate ER (Imdur) 60 MG 24 hr tablet metoprolol tartrate (Lopressor) 50 MG tablet Other Relevant Orders CBC and differential Comprehensive metabolic panel Chronic obstructive pulmonary disease, unspecified COPD type ([facility]) Relevant Medications Nixnfxplcyn-Orgpjrjvn-Xeofvn (Trelegy Ellipta) 100-62.5-25 MCG/ACT aerosol powder No follow-ups on file. documented in this encounterEllis Fischel Cancer [id number] Instructions* Patient Instructions* Eun Kaufman DO - 08/15/2022 4:17 PM EST Please work with your doctor on the sleep apnea and psychiatrist for depression. Follow-up in 6 months. documented in this encounterMagruder Memorial Hospital01-04-2023 History of Present illness Narrative* Eun Kaufman DO - 08/15/2022 3:47 PM EST Images from the original note were not included. [facility] Follow up/ Established patient visit Individuals who were included in, or assisted with the encounter were: Samir Castillo Eun Kaufman DO Chief Complaint/Issues: Samir Castillo is a 67 year old male seen in the [facility] for: Follow-up Most [...] AND 1/2 TABLETS BY MOUTH EVERY DAY Ybuioenecrani-Ezwafism-Fxukjk (MULTIVITAMIN 50 PLUS) tab Take 1 tablet by mouth once daily. omega 1-rkd-hui-fish oil (FISH OIL) 100-160-1,000 mg cap Take [...] which included preparing to see the patient, debq-yq-sfdy patient care, completing clinical documentation, obtaining and/or reviewing separately obtained history, performing a medically appropriate examination, counseling and educating the pat ient/family/caregiver, and ordering medications, tests, or procedures. Eun Kaufman DO documented in this encounterMagruder Memorial Hospital11-29-2022 Evaluation note* Encounter Date Diagnosis Assessment [...] mmol/L. 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 documented in this encounterMagruder Memorial Hospital08-30-2022 History of Present illness Narrative* Eun Kaufman DO - 04/10/2022 10:11 AM EDT Images from the original note were not included. [facility] New Patient Evaluation Consulting Provider: Jessie Bright [id number] [facility] [id number] Individuals who were included in, or assisted with the encounter were: Samir Castillo Eun Kaufman DO Chief Complaint/Issues: Samir Castillo is a 66 year old male seen in the [facility] for: Memory HPI: [...] notices problems with both short term and emt intermediate memory Language: yes, word finding problems. Knows [...] AND 1/2 TABLETS BY MOUTH EVERY DAY Hhibrepcnefef-Knuovgjn-Hokzls (MULTIVITAMIN 50 PLUS) tab Take 1 tablet by mouth once daily. omega 8-zix-qgr-fish oil (FISH OIL) 100-160-1,000 mg cap Take [...] which included preparing to see the patient, nfnt-dn-wahi patient care, completing clinical documentation, obtaining and/or reviewing separately obtained history, performing a medically appropriate examination, and counseling and educating the patient/family/caregiver. Eun Kaufman DO documented in this encounterMagruder Memorial Hospital08-02-2022 Evaluation note* Encounter Date Diagnosis Assessment Notes Treatment Notes Treatment Clinical Notes Mar, Depression, major, recurrent, mo derate (ICD-10 - F33.1) [facility] Other 07-25-2022 Evaluation note* Encounter Date Diagnosis Assessment Notes Treatment Notes Treatment Clinical Notes Feb, Depression, major, recurrent, mo derate (ICD-10 - F33.1) [facility] Other 07-19-2022 Evaluation note* Encounter Date Diagnosis [...] Feb,leep apnea, unspecified type (ICD-10 - G47.30) [facility] Other 07-01-2022 Miscellaneous Notes* Telephone Encounter - [...] Dr. Roche Message text documented in this encounterMagruder Memorial Hospital07-01-2022 History of Present illness Narrative* Brayan Trent CRT - 02/09/2022 10:41 AM EDT PULM FUNCTION SMARTBLOCK: Provider: Prince Aby MD Spirometry w/BD: 1 System: MC9 - [id number] documented in this encounterMagruder Memorial Hospital06-30-2022 History of Present illness Narrative* RT Ed(R) - 02/08/2022 4:00 PM EDT Radiology Service Progress Note PATIENT NAME: Samir Casitllo DATE OF SERVICE: February 08, 2022 TIME: [...] 08, 2022 4:21 PM documented in this encounterMagruder Memorial Hospital06-20-2022 Evaluation note* Encounter Date Diagnosis [...] relief. Also reports that he saw his lockstitch topstitcher recently who does not think that his shortness of breath is related to his heart. He did have an appointment with [facility] but has since decided to see pulmonology in [place]. Given his PFT and CT results I [...] with Dr. Hurtado at their upcoming appointment. [facility] Other 05-27-2022 Evaluation note* Encounter Date Diagnosis Assessment Notes Treatment Notes Treatment Clinical Notes December, Obstructive lung disease (ICD-10 - J44.9) December,ulmonary nodule (ICD-10 - R91.1) [facility] Other 05-23-2022 Evaluation note* Encounter Date Diagnosis Assessment Notes Treatment Notes Treatment Clinical Notes December, Shortness of breath (ICD-10 - R0 6.02) [facility] Other 05-17-2022 Evaluation note* Encounter Date Diagnosis [...] next month or so we will recheck. [facility] Other 05-13-2022 History of Present illness Narrative* Jessie Bright MD - 12/22/2021 8:41 AM EDT Images from the original note were not included. [facility] New Patient Evaluation Consulting Provider: SELF Individuals who were included in, or assisted with the encounter were: Samir Olmedokaren Bright MD Chief Complaint/Issues: Samir Castillo is a 66 year old male seen in the [facility] for: 1. Memory [...] notices problems with both short term and emt intermediate memory Language: yes, word finding problems. Knows [...] AND 1/2 TABLETS BY MOUTH EVERY DAY Mouqkjoeddvmk-Aojbvuxn-Kexbiu (MULTIVITAMIN 50 PLUS) tab Take 1 tablet by mouth once daily. omega 6-dou-tux-fish oil (FISH OIL) 100-160-1,000 mg cap Take [...] which included preparing to see the patient, ighg-lc-uudw patient care, completing clinical documentation and performing a medically appropriate examination. Jessie Bright MD documented in this encounterMagruder Memorial Hospital05-09-2022 Evaluation note* Encounter Date Diagnosis Assessment Notes Treatment Notes Treatment Clinical Notes December, Depression, major, recurrent, mo derate (ICD-10 - F33.1) [facility] Other 10-12-2021 Evaluation note* Encounter Date Diagnosis [...] metoprolol. He follow-up with Dr. Rubio, his lockstitch topstitcher in [place]. He stated that his heart looks fine. [...] at home also runs between 140-150 systolic. [place] systolic blood pressure at home should be [...] his PCP Dr. Arellano for lipid profile. 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)- Primary Other persistent mental disorders due to conditions classified elsewhere Cognitive impairment, mild, so stated Mild cognitive impairment, so stated Depression, unspecified depression type documented in this encounter [facility] noteNo InformationNortLifecare [facility] Other [facility] Other Evaluation note* Diagnosis Cognitive impairment, mild, so stated- Primary Mild cognitive impairment, so stated documented in this encounter [facility] note* Diagnosis Shortness of breath- Primary [facility] Diagnosis Cognitive impairment, mild, so stated Mild cognitive impairment, so stated 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) Other persistent mental disorders due to conditions classified elsewhere Depression, unspecified depression type documented [facility] this [facility]* Diagnosis Shortness of breath [facility]* Diagnosis Recurrent major depression in partial remission (HCC)- Primary Major depressive disorder, recurrent episode, in partial or unspecified remission MCI (mild cognitive impairment) Mild cognitive impairment, so stated [facility] noteNo assessment information availableLouis [facility] Work Phone: Evaluation note* Diagnosis MCI (mild cognitive impairment)- Primary Mild cognitive impairment, so stated [facility] noteNort [place] Other Evaluation note* Diagnosis Traumatic complete tear of left rotator cuff, subsequent encounter- Primary Recurrent major depression in partial remission (HCC) ([facility]/HCC) Major depressive disorder, recurrent episode, in partial or unspecified remission Other hyperlipidemia ([facility]/HCC) EDITH (generalized anxiety disorder) ([facility]) Generalized anxiety disorder CKD (chronic kidney disease) stage 4, GFR 15-29 ml/min ([facility]/HCC) Chronic kidney disease, Stage IV (severe) Gastroesophageal reflux disease without esophagitis Esophageal reflux 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 ([facility]) Primary hypertension ([facility]) Unspecified essential hypertension Chronic obstructive pulmonary disease, unspecified COPD type ([facility]) [facility]* Diagnosis Onset Date Resolution Status Anemia acuteCAD (coronary artery disease) of artery bypass graftacuteChronic kidney disease, stage [id number] [facility] Work Phone: Evaluation note* Diagnosis Dyspnea and respiratory abnormalities- Primary Other dyspnea and respiratory abnormality Centrilobular emphysema (HCC) Other emphysema Class 1 obesity due to excess calories with serious comorbidity and body mass index (BMI) of 32.0 to 32.9 in adult Sleep-disordered breathing Other sleep disturbances Memory loss- Primary Abnormality of gait [facility]* Diagnosis Dyspnea and respiratory abnormalities- Primary Other dyspnea and respiratory abnormality Centrilobular emphysema (HCC) Other emphysema Class 1 obesity due to excess calories with serious comorbidity and body mass index (BMI) of 32.0 to 32.9 in adult Sleep-disordered breathing Other sleep disturbances Memory loss [facility]* Diagnosis Traumatic complete tear of left rotator cuff, subsequent encounter- Primary Recurrent major depression in partial remission (HCC) ([facility]) Major depressive disorder, recurrent episode, in partial or unspecified remission Other hyperlipidemia ([facility]/HCC) EDITH (generalized anxiety disorder) ([facility]) Generalized anxiety disorder CKD (chronic kidney disease) stage 4, GFR 15-29 ml/min ([facility]/HCC) Chronic kidney disease, Stage IV (severe) Gastroesophageal reflux disease without esophagitis Esophageal reflux 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 ([facility]) Primary hypertension ([facility]) Unspecified essential hypertension Chronic obstructive pulmonary disease, unspecified COPD type ([facility]) Chronic obstructive pulmonary disease, unspecified COPD type ([facility])- Primary 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 ([facility]) CKD (chronic kidney disease) stage 4, GFR 15-29 ml/min ([facility]/HCC) Chronic kidney disease, Stage IV (severe) Gastroesophageal reflux disease without esophagitis Esophageal reflux Recurrent major depressive disorder, in full remission ([facility]) Other hyperlipidemia ([facility]/HCC) EDITH (generalized anxiety disorder) ([facility]) Generalized anxiety disorder Recurrent major depression in partial remission (HCC) ([facility]) Major depressive disorder, recurrent episode, in partial or unspecified remission Primary hypertension ([facility]/HCC) Unspecified essential hypertension Primary hypertension ([facility])- Primary Unspecified essential hypertension Other hyperlipidemia ([facility]/HCC) 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 ([facility]/HCC) Frequent falls Functional gait abnormality CKD (chronic kidney disease) stage 4, GFR 15-29 ml/min ([facility]/HCC) Chronic kidney disease, Stage IV (severe) [facility]* Diagnosis Traumatic complete tear of left rotator cuff, subsequent encounter- Primary Recurrent major depression in partial remission (HCC) ([facility]) Major depressive disorder, recurrent episode, in partial or unspecified remission Other hyperlipidemia ([facility]) EDITH (generalized anxiety disorder) ([facility]) Generalized anxiety disorder CKD (chronic kidney disease) stage 4, GFR 15-29 ml/min ([facility]) Chronic kidney disease, Stage IV (severe) Gastroesophageal reflux disease without esophagitis Esophageal reflux 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 ([facility]) Primary hypertension ([facility]) Unspecified essential hypertension Chronic obstructive pulmonary disease, unspecified COPD type ([facility]) Chronic obstructive pulmonary disease, unspecified COPD type ([facility])- Primary 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 ([facility]) CKD (chronic kidney disease) stage 4, GFR 15-29 ml/min ([facility]) Chronic kidney disease, Stage IV (severe) Gastroesophageal reflux disease without esophagitis Esophageal reflux Recurrent major depressive disorder, in full remission ([facility]) Other hyperlipidemia ([facility]) EDITH (generalized anxiety disorder) ([facility]) Generalized anxiety disorder Recurrent major depression in partial remission (HCC) [place] Major depressive disorder, recurrent episode, in partial or unspecified remission Primary hypertension ([facility]) Unspecified essential hypertension Primary hypertension ([facility])- Primary Unspecified essential hypertension Other hyperlipidemia ([facility]) 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 ([facility]) Frequent falls Functional gait abnormality CKD (chronic kidney disease) stage 4, GFR 15-29 ml/min ([facility]) Chronic kidney disease, Stage IV (severe) Recurrent major depression in partial remission (HCC) ([facility]) Major depressive disorder, recurrent episode, in partial or unspecified remission documented in this encounter [facility] HealthcareEvaluation note* Diagnosis Gastroesophageal reflux disease without esophagitis Esophageal reflux Recurrent major depression in partial remission (HCC) ([facility]) Major depressive disorder, recurrent episode, in partial or unspecified remission documented in this encounter [facility] HealthcareEvaluation note* Diagnosis Dyspnea and [...] type, unspecified whether angina present, unspecified whether chickaloon or transplanted heart Complaints of memory disturbance Memory loss [facility] Diagnosis Traumatic complete tear of left rotator cuff, subsequent encounter- Primary Recurrent major depression in partial remission (HCC) ([facility]) Major depressive disorder, recurrent episode, in partial or unspecified remission Other hyperlipidemia ([facility]) EDTIH (generalized anxiety disorder) ([facility]) Generalized anxiety disorder CKD (chronic kidney disease) stage 4, GFR 15-29 ml/min ([facility]) Chronic kidney disease, Stage IV (severe) Gastroesophageal reflux disease without esophagitis Esophageal reflux 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 ([facility]) Primary hypertension ([facility]) Unspecified essential hypertension Chronic obstructive pulmonary disease, unspecified COPD type ([facility]) Chronic obstructive pulmonary disease, unspecified COPD type ([facility])- Primary 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 ([facility]) CKD (chronic kidney disease) stage 4, GFR 15-29 ml/min ([facility]) Chronic kidney disease, Stage IV (severe) Gastroesophageal reflux disease without esophagitis Esophageal reflux Recurrent major depressive disorder, in full remission ([facility]) Other hyperlipidemia ([facility]) EDITH (generalized anxiety disorder) ([facility]) Generalized anxiety disorder Recurrent major depression in partial remission (HCC) ([facility]) Major depressive disorder, recurrent episode, in partial or unspecified remission Primary hypertension ([facility]) Unspecified essential hypertension Primary hypertension [place] Primary Unspecified essential hypertension Other hyperlipidemia ([facility]) 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 ([facility]) Frequent falls Functional gait abnormality CKD (chronic kidney disease) stage 4, GFR 15-29 ml/min ([facility]) Chronic kidney disease, Stage IV (severe) Primary hypertension ([facility])- Primary Unspecified essential hypertension Chronic obstructive pulmonary disease, unspecified COPD type ([facility]) Chronic kidney disease, stage 4 (severe) ([facility]) 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 ([facility]) Gastroesophageal reflux disease without esophagitis Esophageal reflux EDITH (generalized anxiety disorder) ([facility]) Generalized anxiety disorder Recurrent major depressive disorder, in full remission (CMS/HCC) Mixed hyperlipidemia ([facility]/HCC) Mixed hyperlipidemia MCI (mild cognitive impairment) Mild cognitive impairment, so stated Other hyperlipidemia ([facility]) Recurrent major depression in partial remission (HCC) ([facility]) Major depressive disorder, recurrent episode, [...] Neck pain Cervicalgia [facility] Diagnosis Onset Date Resolution Status Admit Date Anemia acuteMarch 2024 3:58pmCAD (coronary artery disease) of artery bypass graft acuteMarch 2024 3:58pmChronic kidney disease, stage 3bacuteMar 2024 3:58pmHyperkal[facility]acute[facility] 3:58pmHyperlipemiaacuteA[facility]ch 2024 3:58pmHypertensive chronic kidney disease with stage 1 through stage 4 chronic [facility]Tr[facility] 2024 3:58pm [facility] Work Phone: Evaluation note* Diagnosis Traumatic complete tear of left rotator cuff, subsequent encounter- Primary Recurrent major depression in partial remission (HCC) ([facility]) Major depressive disorder, recurrent episode, in partial or unspecified remission Other hyperlipidemia EDITH (generalized anxiety disorder) ([facility]) Generalized anxiety disorder CKD (chronic kidney disease) stage 4, GFR 15-29 ml/min ([facility]) Chronic kidney disease, Stage IV (severe) Gastroesophageal reflux disease without esophagitis Esophageal reflux 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 ([facility]) Primary hypertension ([facility]) Unspecified essential hypertension Chronic obstructive pulmonary disease, unspecified COPD type ([facility]) Chronic obstructive pulmonary disease, unspecified COPD type ([facility])- Primary 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 ([facility]) CKD (chronic kidney disease) stage 4, GFR 15-29 ml/min ([facility]) Chronic kidney disease, Stage IV (severe) Gastroesophageal reflux disease without esophagitis Esophageal reflux Recurrent major depressive disorder, in full remission ([facility]) Other hyperlipidemia EDITH (generalized anxiety disorder) ([facility]) Generalized anxiety disorder Recurrent major depression in partial remission (HCC) ([facility]) Major depressive disorder, recurrent episode, in partial or unspecified remission Primary hypertension ([facility]) Unspecified essential hypertension Primary hypertension ([facility])- Primary Unspecified essential hypertension Other hyperlipidemia 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 ([facility]) Frequent falls Functional gait abnormality CKD (chronic kidney disease) stage 4, GFR 15-29 ml/min ([facility]) Chronic kidney disease, Stage IV (severe) Primary hypertension ([facility])- Primary Unspecified essential hypertension Chronic obstructive pulmonary disease, unspecified COPD type ([facility]) Chronic kidney disease, stage 4 (severe) ([facility]) 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 ([facility]) Gastroesophageal reflux disease without esophagitis Esophageal reflux EDITH (generalized anxiety disorder) ([facility]) Generalized anxiety disorder Recurrent major depressive disorder, in full remission ([facility]) Mixed hyperlipidemia ([facility]) Mixed hyperlipidemia MCI (mild cognitive impairment) Mild cognitive impairment, so stated Other hyperlipidemia Recurrent major depression in partial remission (HCC) ([facility]) Major depressive disorder, recurrent episode, in partial or unspecified remission Other hyperlipidemia EDITH (generalized anxiety disorder) ([facility]) Generalized anxiety disorder Recurrent major depression in partial remission (HCC) ([facility]) Major depressive disorder, recurrent episode, in partial or unspecified remission documented in this encounter [facility] HealthcareEvaluation note* Diagnosis Traumatic complete tear of left rotator cuff, subsequent encounter- Primary Recurrent major depression in partial remission (HCC) ([facility]) Major depressive disorder, recurrent episode, in partial or unspecified remission Other hyperlipidemia EDITH (generalized anxiety disorder) ([facility]) Generalized anxiety disorder CKD (chronic kidney disease) stage 4, GFR 15-29 ml/min ([facility]) Chronic kidney disease, Stage IV (severe) Gastroesophageal reflux disease without esophagitis Esophageal reflux 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 ([facility]) Primary hypertension ([facility]) Unspecified essential hypertension Chronic obstructive pulmonary disease, unspecified COPD type ([facility]) Chronic obstructive pulmonary disease, unspecified COPD type ([facility])- Primary 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 ([facility]) CKD (chronic kidney disease) stage 4, GFR 15-29 ml/min ([facility]) Chronic kidney disease, Stage IV (severe) Gastroesophageal reflux disease without esophagitis Esophageal reflux Recurrent major depressive disorder, in full remission ([facility]) Other hyperlipidemia EDITH (generalized anxiety disorder) ([facility]) Generalized anxiety disorder Recurrent major depression in partial remission (HCC) ([facility]) Major depressive disorder, recurrent episode, in partial or unspecified remission Primary hypertension ([facility]) Unspecified essential hypertension Primary hypertension ([facility])- Primary Unspecified essential hypertension Other hyperlipidemia 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 ([facility]) Frequent falls Functional gait abnormality CKD (chronic kidney disease) stage 4, GFR 15-29 ml/min ([facility]) Chronic kidney disease, Stage IV (severe) Primary hypertension ([facility])- Primary Unspecified essential hypertension Chronic obstructive pulmonary disease, unspecified COPD type ([facility]) Chronic kidney disease, stage 4 (severe) ([facility]) 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 ([facility]) Gastroesophageal reflux disease without esophagitis Esophageal reflux EDITH (generalized anxiety disorder) ([facility]) Generalized anxiety disorder Recurrent major depressive disorder, in full remission ([facility]) Mixed hyperlipidemia ([facility]) Mixed hyperlipidemia MCI (mild cognitive impairment) Mild cognitive impairment, so stated Other hyperlipidemia Recurrent major depression in partial remission (HCC) ([facility]) Major depressive disorder, recurrent episode, in partial or unspecified remission Primary hypertension ([facility]) Unspecified essential hypertension Other hyperlipidemia Recurrent major depression in partial remission (HCC) ([facility]) Major depressive disorder, recurrent episode, in partial or unspecified remission 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 ([facility]) Gastroesophageal reflux disease without esophagitis Esophageal reflux EDITH (generalized anxiety disorder) ([facility]) Generalized anxiety disorder documented in this encounter [facility]* Diagnosis Traumatic complete tear of left rotator cuff, subsequent encounter- Primary Recurrent major depression in partial remission (HCC) ([facility]) Major depressive disorder, recurrent episode, in partial or unspecified remission Other hyperlipidemia EDITH (generalized anxiety disorder) ([facility]) Generalized anxiety disorder CKD (chronic kidney disease) stage 4, GFR 15-29 ml/min ([facility]) Chronic kidney disease, Stage IV (severe) Gastroesophageal reflux disease without esophagitis Esophageal reflux 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 ([facility]) Primary hypertension ([facility]) Unspecified essential hypertension Chronic obstructive pulmonary disease, unspecified COPD type ([facility]) Chronic obstructive pulmonary disease, unspecified COPD type ([facility])- Primary 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 ([facility]) CKD (chronic kidney disease) stage 4, GFR 15-29 ml/min ([facility]) Chronic kidney disease, Stage IV (severe) Gastroesophageal reflux disease without esophagitis Esophageal reflux Recurrent major depressive disorder, in full remission ([facility]) Other hyperlipidemia EDITH (generalized anxiety disorder) ([facility]) Generalized anxiety disorder Recurrent major depression in partial remission (HCC) ([facility]) Major depressive disorder, recurrent episode, in partial or unspecified remission Primary hypertension ([facility]) Unspecified essential hypertension Primary hypertension ([facility])- Primary Unspecified essential hypertension Other hyperlipidemia 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 ([facility]) Frequent falls Functional gait abnormality CKD (chronic kidney disease) stage 4, GFR 15-29 ml/min ([facility]) Chronic kidney disease, Stage IV (severe) Primary hypertension ([facility])- Primary Unspecified essential hypertension Chronic obstructive pulmonary disease, unspecified COPD type ([facility]) Chronic kidney disease, stage 4 (severe) ([facility]) 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 ([facility]) Gastroesophageal reflux disease without esophagitis Esophageal reflux EDITH (generalized anxiety disorder) ([facility]) Generalized anxiety disorder Recurrent major depressive disorder, in full remission ([facility]) Mixed hyperlipidemia ([facility]) Mixed hyperlipidemia MCI (mild cognitive impairment) Mild cognitive impairment, so stated Other hyperlipidemia Recurrent major depression in partial remission (HCC) ([facility]) Major depressive disorder, recurrent episode, in partial or unspecified remission Neck pain- Primary Cervicalgia Primary hypertension ([facility]) Unspecified essential hypertension Chronic kidney disease, stage 4 (severe) ([facility]) EDITH (generalized anxiety disorder) ([facility]) Generalized anxiety disorder Functional gait abnormality MCI (mild cognitive impairment) Mild cognitive impairment, so stated documented in this encounter [facility]* Diagnosis Traumatic complete tear of left rotator cuff, subsequent encounter- Primary Recurrent major [place] in partial [place]) [place] Major depressive disorder, recurrent episode, in partial or unspecified remission Other hyperlipidemia EDITH (generalized anxiety disorder) ([facility]) Generalized anxiety disorder CKD (chronic kidney disease) stage 4, GFR 15-29 ml/min ([facility]) Chronic kidney disease, Stage IV (severe) Gastroesophageal reflux disease without esophagitis Esophageal reflux 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 [place] [place] Unspecified essential hypertension Chronic obstructive pulmonary disease, unspecified COPD type ([facility]) Chronic obstructive pulmonary disease, unspecified COPD type [place] Primary 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 ([facility]) CKD (chronic kidney disease) stage 4, GFR 15-29 ml/min ([facility]) Chronic kidney disease, Stage IV (severe) Gastroesophageal reflux disease without esophagitis Esophageal reflux Recurrent major depressive disorder, in full remission [place] [place] Other hyperlipidemia EDITH (generalized anxiety disorder) [place] [place] Generalized anxiety disorder Recurrent major depression in partial remission (HCC) [place] [place] Major depressive disorder, recurrent episode, in partial or unspecified remission Primary hypertension ([facility]) Unspecified essential hypertension Primary hypertension [place] [place] Primary Unspecified essential hypertension Other hyperlipidemia 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 ([facility]) Frequent falls Functional gait abnormality CKD (chronic kidney disease) stage 4, GFR 15-29 ml/min ([facility]) Chronic kidney disease, Stage IV (severe) Primary hypertension [place] [place] Primary Unspecified essential hypertension Chronic obstructive pulmonary disease, unspecified COPD type ([facility]) Chronic kidney disease, stage 4 (severe) [place] [place] 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 [place] [place] Gastroesophageal reflux disease without esophagitis Esophageal reflux EDITH (generalized anxiety disorder) [place] Generalized anxiety disorder Recurrent major depressive disorder, in full remission ([facility]) Mixed hyperlipidemia ([facility]) Mixed hyperlipidemia MCI (mild cognitive impairment) Mild cognitive impairment, so stated Other hyperlipidemia Recurrent major depression in partial remission (HCC) [place] [place] Major depressive disorder, recurrent episode, in partial or unspecified remission Neck pain- Primary Cervicalgia Primary hypertension ([facility]) Unspecified essential hypertension Chronic kidney disease, stage 4 (severe) ([facility]) EDITH (generalized anxiety disorder) ([facility]) Generalized anxiety disorder Functional gait abnormality MCI (mild cognitive impairment) Mild cognitive impairment, so stated EDITH (generalized anxiety disorder) ([facility])- Primary Generalized anxiety disorder documented in this encounter [facility]* Diagnosis Traumatic complete tear of left rotator cuff, subsequent encounter- Primary Recurrent major depression in partial remission (HCC) ([facility]) Major depressive disorder, recurrent episode, in partial or unspecified remission Other hyperlipidemia EDITH (generalized anxiety disorder) ([facility]) Generalized anxiety disorder CKD (chronic kidney disease) stage 4, GFR 15-29 ml/min ([facility]) Chronic kidney disease, Stage IV (severe) Gastroesophageal reflux disease without esophagitis Esophageal reflux 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 ([facility]) Primary hypertension ([facility]) Unspecified essential hypertension Chronic obstructive pulmonary disease, unspecified COPD type ([facility]) Chronic obstructive pulmonary disease, unspecified COPD type ([facility])- Primary 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 ([facility]) CKD (chronic kidney disease) stage 4, GFR 15-29 ml/min ([facility]) Chronic kidney disease, Stage IV (severe) Gastroesophageal reflux disease without esophagitis Esophageal reflux Recurrent major depressive disorder, in full remission ([facility]) Other hyperlipidemia EDITH (generalized anxiety disorder) ([facility]) Generalized anxiety disorder Recurrent major depression in partial remission (HCC) ([facility]) Major depressive disorder, recurrent episode, in partial or unspecified remission Primary hypertension ([facility]) Unspecified essential hypertension Primary hypertension ([facility])- Primary Unspecified essential hypertension Other hyperlipidemia 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 ([facility]) Frequent falls Functional gait abnormality CKD (chronic kidney disease) stage 4, GFR 15-29 ml/min ([facility]) Chronic kidney disease, Stage IV (severe) Primary hypertension ([facility])- Primary Unspecified essential hypertension Chronic obstructive pulmonary disease, unspecified COPD type ([facility]) Chronic kidney disease, stage 4 (severe) ([facility]) 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 ([facility]) Gastroesophageal reflux disease without esophagitis Esophageal reflux EDITH (generalized anxiety disorder) ([facility]) Generalized anxiety disorder Recurrent major depressive disorder, in full remission ([facility]) Mixed hyperlipidemia ([facility]) Mixed hyperlipidemia MCI (mild cognitive impairment) Mild cognitive impairment, so stated Other hyperlipidemia Recurrent major depression in partial remission (HCC) ([facility]) Major depressive disorder, recurrent episode, in partial or unspecified remission Neck pain- Primary Cervicalgia Primary hypertension ([facility]) Unspecified essential hypertension Chronic kidney disease, stage 4 (severe) ([facility]) EDITH (generalized anxiety disorder) ([facility]) Generalized anxiety disorder Functional gait abnormality MCI (mild cognitive impairment) Mild cognitive impairment, so stated Other hyperlipidemia 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 ([facility]) Primary hypertension ([facility]) Unspecified essential hypertension Recurrent major depression in partial remission (HCC) ([facility]) Major depressive disorder, recurrent episode, in partial or unspecified remission EDITH (generalized anxiety disorder) ([facility]) Generalized anxiety disorder documented in this encounter [facility]* Diagnosis Traumatic complete tear of left rotator cuff, subsequent encounter- Primary Recurrent major depression in partial remission (HCC) ([facility]) Major depressive disorder, recurrent episode, in partial or unspecified remission Other hyperlipidemia EDITH (generalized anxiety disorder) ([facility]) Generalized anxiety disorder CKD (chronic kidney disease) stage 4, GFR 15-29 ml/min ([facility]) Chronic kidney disease, Stage IV (severe) Gastroesophageal reflux disease without esophagitis Esophageal reflux 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 ([facility]) Primary hypertension ([facility]) Unspecified essential hypertension Chronic obstructive pulmonary disease, unspecified COPD type ([facility]) Chronic obstructive pulmonary disease, unspecified COPD type ([facility])- Primary 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 ([facility]) CKD (chronic kidney disease) stage 4, GFR 15-29 ml/min ([facility]) Chronic kidney disease, Stage IV (severe) Gastroesophageal reflux disease without esophagitis Esophageal reflux Recurrent major depressive disorder, in full remission ([facility]) Other hyperlipidemia EDITH (generalized anxiety disorder) ([facility]) Generalized anxiety disorder Recurrent major depression in partial remission (HCC) ([facility]) Major depressive disorder, recurrent episode, in partial or unspecified remission Primary hypertension ([facility]) Unspecified essential hypertension Primary hypertension ([facility])- Primary Unspecified essential hypertension Other hyperlipidemia 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 ([facility]) Frequent falls Functional gait abnormality CKD (chronic kidney disease) stage 4, GFR 15-29 ml/min ([facility]) Chronic kidney disease, Stage IV (severe) Primary hypertension ([facility])- Primary Unspecified essential hypertension Chronic obstructive pulmonary disease, unspecified COPD type ([facility]) Chronic kidney disease, stage 4 (severe) ([facility]) 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 ([facility]) Gastroesophageal reflux disease without esophagitis Esophageal reflux EDITH (generalized anxiety disorder) ([facility]) Generalized anxiety disorder Recurrent major depressive disorder, in full remission ([facility]) Mixed hyperlipidemia ([facility]) Mixed hyperlipidemia MCI (mild cognitive impairment) Mild cognitive impairment, so stated Other hyperlipidemia Recurrent major depression in partial remission (HCC) ([facility]) Major depressive disorder, recurrent episode, in partial or unspecified remission Neck pain- Primary Cervicalgia Primary hypertension ([facility]) Unspecified essential hypertension Chronic kidney disease, stage 4 (severe) ([facility]) EDITH (generalized anxiety disorder) ([facility]) Generalized anxiety disorder Functional gait abnormality MCI (mild cognitive impairment) Mild cognitive impairment, so stated Primary hypertension ([facility]) Unspecified essential hypertension Other hyperlipidemia Neck pain Cervicalgia Recurrent major depression in partial remission (HCC) ([facility]) Major depressive disorder, recurrent episode, in partial or unspecified remission 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 ([facility]) Gastroesophageal reflux disease without esophagitis Esophageal reflux Chronic obstructive pulmonary disease, unspecified COPD type ([facility]) EDITH (generalized anxiety disorder) ([facility]) Generalized anxiety disorder documented in this encounter [facility] HealthcareEvaluation note* Diagnosis Traumatic complete tear of left rotator cuff, subsequent encounter- Primary Recurrent major depression in partial remission (HCC) ([facility]) Major depressive disorder, recurrent episode, in partial or unspecified remission Other hyperlipidemia EDITH (generalized anxiety disorder) ([facility]) Generalized anxiety disorder CKD (chronic kidney disease) stage 4, GFR 15-29 ml/min ([facility]) Chronic kidney disease, Stage IV (severe) Gastroesophageal reflux disease without esophagitis Esophageal reflux 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 ([facility]) Primary hypertension ([facility]) Unspecified essential hypertension Chronic obstructive pulmonary disease, unspecified COPD type ([facility]) Chronic obstructive pulmonary disease, unspecified COPD type ([facility])- Primary 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 ([facility]) CKD (chronic kidney disease) stage 4, GFR 15-29 ml/min ([facility]) Chronic kidney disease, Stage IV (severe) Gastroesophageal reflux disease without esophagitis Esophageal reflux Recurrent major depressive disorder, in full remission ([facility]) Other hyperlipidemia EDITH (generalized anxiety disorder) ([facility]) Generalized anxiety disorder Recurrent major depression in partial remission (HCC) ([facility]) Major depressive disorder, recurrent episode, in partial or unspecified remission Primary hypertension ([facility]) Unspecified essential hypertension Primary hypertension ([facility])- Primary Unspecified essential hypertension Other hyperlipidemia 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 ([facility]) Frequent falls Functional gait abnormality CKD (chronic kidney disease) stage 4, GFR 15-29 ml/min ([facility]) Chronic kidney disease, Stage IV (severe) Primary hypertension ([facility])- Primary Unspecified essential hypertension Chronic obstructive pulmonary disease, unspecified COPD type ([facility]) Chronic kidney disease, stage 4 (severe) ([facility]) 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 ([facility]) Gastroesophageal reflux disease without esophagitis Esophageal reflux EDITH (generalized anxiety disorder) ([facility]) Generalized anxiety disorder Recurrent major depressive disorder, in full remission ([facility]) Mixed hyperlipidemia ([facility]) Mixed hyperlipidemia MCI (mild cognitive impairment) Mild cognitive impairment, so stated Other hyperlipidemia Recurrent major depression in partial remission (HCC) ([facility]) Major depressive disorder, recurrent episode, in partial or unspecified remission Neck pain- Primary Cervicalgia Primary hypertension ([facility]) Unspecified essential hypertension Chronic kidney disease, stage 4 (severe) ([facility]) EDITH (generalized anxiety disorder) ([facility]) Generalized anxiety disorder Functional gait abnormality MCI (mild cognitive impairment) Mild cognitive impairment, so stated Neck pain- Primary Cervicalgia documented in this encounter [facility]* Diagnosis Traumatic complete tear of left rotator cuff, subsequent encounter- Primary Recurrent major depression in partial remission (HCC) ([facility]) Major depressive disorder, recurrent episode, in partial or unspecified remission Other hyperlipidemia EDITH (generalized anxiety disorder) ([facility]) Generalized anxiety disorder CKD (chronic kidney disease) stage 4, GFR 15-29 ml/min ([facility]) Chronic kidney disease, Stage IV (severe) Gastroesophageal reflux disease without esophagitis Esophageal reflux 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 ([facility]) Primary hypertension ([facility]) Unspecified essential hypertension Chronic obstructive pulmonary disease, unspecified COPD type ([facility]) Chronic obstructive pulmonary disease, unspecified COPD type ([facility])- Primary 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 ([facility]) CKD (chronic kidney disease) stage 4, GFR 15-29 ml/min ([facility]) Chronic kidney disease, Stage IV (severe) Gastroesophageal reflux disease without esophagitis Esophageal reflux Recurrent major depressive disorder, in full remission ([facility]) Other hyperlipidemia EDITH (generalized anxiety disorder) [place] Generalized anxiety disorder Recurrent major depression in partial remission (HCC) [place] Major depressive disorder, recurrent episode, in partial or unspecified remission Primary hypertension [place] Unspecified essential hypertension Primary hypertension [place] Primary Unspecified essential hypertension Other hyperlipidemia 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 ([facility]) Frequent falls Functional gait abnormality CKD (chronic kidney disease) stage 4, GFR 15-29 ml/min ([facility]) Chronic kidney disease, Stage IV (severe) Primary hypertension [place] Primary Unspecified essential hypertension Chronic obstructive pulmonary disease, unspecified COPD type ([facility]) Chronic kidney disease, stage 4 (severe) [place] 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 ([facility]) Gastroesophageal reflux disease without esophagitis Esophageal reflux EDITH (generalized anxiety disorder) [place] Generalized anxiety disorder Recurrent major depressive disorder, in full remission ([facility]) Mixed hyperlipidemia ([facility]) Mixed hyperlipidemia MCI (mild cognitive impairment) Mild cognitive impairment, so stated Other hyperlipidemia Recurrent major depression in partial remission (HCC) [place] Major depressive disorder, recurrent episode, in partial or unspecified remission Neck pain- Primary Cervicalgia Primary hypertension ([facility]) Unspecified essential hypertension Chronic kidney disease, stage 4 (severe) ([facility] EDITH (generalized anxiety disorder) [place] Generalized anxiety disorder Functional gait abnormality MCI (mild cognitive impairment) Mild cognitive impairment, so stated Cervical spondylosis- Primary Cervical spondylosis without myelopathy Neck pain Cervicalgia Primary hypertension ([facility]) Unspecified essential hypertension Chronic kidney disease, stage 4 (severe) ([facility]) EDITH (generalized anxiety disorder) ([facility]) Generalized anxiety disorder H/O: lung cancer Personal history of malignant neoplasm of bronchus and lung MCI (mild cognitive impairment) Mild cognitive impairment, so stated [facility] Diagnosis Cervical spondylosis- Primary Cervical spondylosis without myelopathy Cervical spondylosis- Primary Cervical spondylosis without myelopathy Cervical spondylosis Cervical spondylosis without myelopathy [facility] Diagnosis Traumatic complete tear of left rotator cuff, subsequent encounter- Primary Recurrent major depression in partial remission Major depressive disorder, recurrent episode, in partial or unspecified remission Other hyperlipidemia EDITH (generalized anxiety disorder) Generalized anxiety disorder CKD (chronic kidney disease) stage 4, GFR 15-29 ml/min ([facility]) Chronic kidney disease, Stage IV (severe) Gastroesophageal reflux disease without esophagitis Esophageal reflux 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 Primary hypertension Unspecified essential hypertension Chronic obstructive pulmonary disease, unspecified COPD type ([facility]) Chronic obstructive pulmonary disease, unspecified COPD type (HCC)- Primary 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 CKD (chronic kidney disease) stage 4, GFR 15-29 ml/min ([facility]) Chronic kidney disease, Stage IV [...] hypertension Other hyperlipidemia 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 Frequent falls Functional gait abnormality CKD (chronic kidney disease) stage 4, GFR 15-29 ml/min ([facility]) Chronic kidney disease, Stage IV (severe) Primary hypertension- Primary Unspecified essential hypertension Chronic obstructive pulmonary disease, unspecified COPD type (HCC) Chronic kidney disease, stage 4 (severe) ([facility]) 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 Gastroesophageal reflux disease [...] Unspecified essential hypertension 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 Chronic kidney disease, stage 4 (severe) (HCC) Pulmonary hypertension (HCC) Other chronic pulmonary heart diseases EDITH (generalized anxiety disorder) Generalized anxiety disorder Other hyperlipidemia Neck pain Cervicalgia Recurrent major depression in partial remission Major depressive disorder, recurrent episode, in partial or unspecified remission Gastroesophageal reflux disease without esophagitis Esophageal reflux Chronic obstructive pulmonary disease, unspecified COPD type ([facility]) [facility] Diagnosis Cervical spondylosis- Primary Cervical spondylosis without myelopathy documented [facility]* Diagnosis Dyspnea and respiratory abnormalities- Primary Other dyspnea and respiratory abnormality Centrilobular emphysema (HCC) Other emphysema Class 1 obesity due to excess calories with serious comorbidity and body mass index (BMI) of 32.0 to 32.9 in adult Sleep-disordered breathing Other sleep disturbances 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- Primary Hx of [...] impairment, so stated [facility] Diagnosis Dyspnea and respiratory abnormalities- Primary Other dyspnea and respiratory abnormality Centrilobular emphysema (HCC) Other emphysema Class 1 obesity due to excess calories with serious comorbidity and body mass index (BMI) of 32.0 to 32.9 in adult Sleep-disordered breathing Other sleep disturbances Chronic heart failure with preserved ejection fraction (HCC)- Primary documented in this encounter [facility] general Narrative - Reported* Type Description Date Medical History hypertension Medical HistoryhypercholesterolemiaMedical Historylung cancerMedical History heart diseaseMedical HistoryA flutterMedical HistoryEsophageal refluxMedical HistoryDEPRESSION AND ANXIETYSurgical HistoryCABGSurgical HistoryherniaSurgical Historylobectomy: lungSurgical HistoryFR/Dr Joshi--hernia repair10/2020 Hospitalization Historysee above [employer] Other History general Narrative - ReportedNort [place] Other [employer] general Narrative - [facility]ortedNowashington [facility] [place] Other InstructionsNot on filedocumented in this encounter [facility] SystemReason for referral (narrative)* Reason * Waiting for appt pulmonology, lung nodule, progressive SOB, hx. lung cancer Diagnosis 1 Pulmonary nodule (R9 1.1) Referral Organization [facility] yeimy Sparks Referring Provider First Name Cristo Referring Provider Last Name Gabriele Referring Provider Specialty Family Medi cine Referred Organization [facility] Referred Provider Gonsalo Hawley Referred Address [address] [place] [phone] Referred Provider Specialty Pulmonary Marium briseno Referral Priority Routine General Notes Mattie Carballo 01:40:04 PM >referral received and sent p2p successful per log [employer] Other Reason for referral (narrative)* Outpatient Procedure (Routine) - Pending ReviewSpecialtyDiagnoses / ProceduresReferred By Contact Referred To ContactRESPIRATORY INSTITUTE Diagnoses Shortness of breath Procedures SPIROMETRY WITH DILATOR IF OBSTRUCTED BRNCDILAT RSPSE SPMTRY PRE&POST-BRNCDILAT ADMMarisol Abdul MD [address] [place] [address] [facility] [place] [address] [place] [address] Referral IDStatusReasonStart DateExpiration DateVisits RequestedVisits [id number] Review Auto-Generated Referral / [facility] for visit NarrativeRef by Dr. Suazo for pulmonology, lung nodule, progressive SOB, hx. lung cancerWaterford [place] Other Summary Purpose Family History No Family [...] Hospital Course Note MR#: [id number] [facility] Pt. Name: Kel Castillo Admitted: [...] STEM W/[place] [address] [place] [address] Mr Imaging Referral IDStatusReasonStart DateExpiration DateVisits RequestedVisits [id number] Auto-Generated Referral /[id number] / ProceduresReferred By ContactReferred To ContactMR IMAGING Diagnoses Cognitive impairment, mild, so stated Procedures MRI 3D POST PROCESSING 3D RENDERING W/INTERP&POSTPROC DIFF WORK STATION Alonzo Cabrera MD, [address] [place] [address] Mr Imaging Referral IDStatusReasonStart DateExpiration DateVisits RequestedVisits [id number] Review Auto-Generated Referral 1Referral IDStatusReasonStart DateExpiration DateVisits RequestedVisits [id number] Auto-Generated Referral /[id number] / ProceduresReferred By ContactReferred To ContactPsychology Diagnoses Recurrent major depression in partial remission (HCC) Procedures CONSULT TO PSYCHOLOGY OFFICE/OUTPATIENT NEW [facility] MDM 60-74 MINUTES Eun Kaufman DO [address] [place] [address] Referral IDStatusReasonStart DateExpiration DateVisits RequestedVisits [id number] Review PCP Requested Referral [id number] / ProceduresReferred By ContactReferred To ContactREHAB AND SPORTS THERAPY INS Diagnoses Abnormality of gait Procedures CONSULT TO PHYSICAL THERAPY PHYSICAL THERAPY EVALUATION HIGH COMPLEX 45 MINS Eun Trent DO [address] [place] [address] [facility] [place] [address] Referral IDStatusReasonBethle[place] DateExpiration DateVisits RequestedVisits [id number] Review Auto-Generated Referral [id number] / ProceduresReferred By ContactReferred To ContactCT IMAGING Diagnoses Memory loss Procedures CT BRAIN WO IVCON CT HEAD/BRAIN W/O CONTRAST MATERIAL Mandeep LatashaEun, [place] [address] Ct Imaging [place] [address] Referral IDStatusReasonStart DateExpiration DateVisits RequestedVisits [id number] Auto-Generated Referral [id number] / ProceduresReferred By ContactReferred To Contact Diagnoses Memory loss Procedures NEUROPSYCHOLOGICAL TESTING CONSULT NEUROBEHAVIORAL STATUS XM PHYS/QHP 1ST HOUR NEUROPSYCHOLOGICAL TST EVAL PHYS/QHP 1ST HOUR NEUROPSYCHOLOGICAL TST EVAL PHYS/QHP EA ADDL HR PSYCL/NRPSYCL TST TECH 2+ TST 1ST 30 MIN PSYCL/NRPSYCL TST TECH 2+ TST EA ADDL 30 MIN Mandeep Latasha Eun, [address] [place] [id number] Referral IDStatusReasonStart DateExpiration DateVisits RequestedVisits [id number] Not Required PCP Requested Referral Referral IDStatusReasonStart DateExpiration DateVisits RequestedVisits [id number] Auto-Generated Referral Chief Complaint and Reason for Visit Chief Complaint g47.30 Chief Complaint RENAL 6 MONTH F/U Reason for Visit Anemia CAD (coronary artery disease) of artery bypass graft Chronic kidney disease, stage 3b Hyperkalemia Hyperlipemia [id number] Chief Complaint Admit Date RENAL 6 MONTH [...] section and content) DATE CREATED AUTHOR 04/05/2018 [facility] DATE CREATED AUTHOR AUTHOR'S ORGANIZ ATION 01/06/2020 [facility] DATE CREATED AUTHOR AUTHOR'S ORGANIZ ATION 12/19/2022 [facility] DATE CREATED AUTHOR AUTHOR'S ORGANIZ ATION 04/22/2023 [facility] DATE CREATED AUTHOR AUTHOR'S ORGANIZ ATION 03/04/2024 [facility] DATE CREATED AUTHOR AUTHOR'S ORGANIZ ATION 05/13/2024 [facility] DATE CREATED AUTHOR AUTHOR'S ORGANIZ ATION 03/03/2025 [facility] DATE CREATED AUTHOR AUTHOR'S ORGANIZ ATION 04/07/2025 [facility] DATE CREATED AUTHOR AUTHOR'S ORGANIZ ATION 04/07/2025 [facility] DATE CREATED AUTHOR AUTHOR'S ORGANIZ ATION 04/30/2025 [facility] DATE CREATED AUTHOR AUTHOR'S ORGANIZ ATION 06/21/2025 [facility] Source Comments (unrecognize d section and content) In the event this informatio n is protected by the Federal Confidentiality of Alcohol and Drug Abuse Patient Records regulations: The Federal rules restrict any use of the information to criminally investigate or prosecute any alcohol or drug abuse patient.[facility] the event this information is protected by the Federal Confidentiality of Alcohol and Drug Abuse Patient Records regulations: The Federal rules restrict any use of the information to criminally investigate or prosecute any alcohol or drug abuse patient.[facility] HospitalIn the event this information is protected by the Federal Confidentiality of Alcohol and Drug Abuse Patient Records regulations: The Federal rules restrict any use of the information to criminally investigate or prosecute any alcohol or drug abuse patient.[facility] HospitalIn the event this information is protected by the Federal Confidentiality of Alcohol and Drug Abuse Patient Records regulations: The Federal rules restrict any use of the information to criminally investigate or prosecute any alcohol or drug abuse patient.[facility] HospitalIn the event this information is protected by the Federal Confidentiality of Alcohol and Drug Abuse Patient Records regulations: The Federal rules restrict any use of the information to criminally investigate or prosecute any alcohol or drug abuse patient.[facility] HospitalIn the event this information is protected by the Federal Confidentiality of Alcohol and Drug Abuse Patient Records regulations: The Federal rules restrict any use of the information to criminally investigate or prosecute any alcohol or drug abuse patient.[facility] HospitalIn the event this information is protected by the Federal Confidentiality of Alcohol and Drug Abuse Patient Records regulations: The Federal rules restrict any use of the information to criminally investigate or prosecute any alcohol or drug abuse patient.[facility] HospitalIn the event this information is protected by the Federal Confidentiality of Alcohol and Drug Abuse Patient Records regulations: The Federal rules restrict any use of the information to criminally investigate or prosecute any alcohol or drug abuse patient.[facility] HospitalIn the event this information is protected by the Federal Confidentiality of Alcohol and Drug Abuse Patient Records regulations: The Federal rules restrict any use of the information to criminally investigate or prosecute any alcohol or drug abuse patient.[facility] HospitalIn the event this information is protected by the Federal Confidentiality of Alcohol and Drug Abuse Patient Records regulations: The Federal rules restrict any use of the information to criminally investigate or prosecute any alcohol or drug abuse patient.[facility] HospitalIn the event this information is protected by the Federal Confidentiality of Alcohol and Drug Abuse Patient Records regulations: The Federal rules restrict any use of the information to criminally investigate or prosecute any alcohol or drug abuse patient.[facility] HospitalIn the event this information is protected by the Federal Confidentiality of Alcohol and Drug Abuse Patient Records regulations: The Federal rules restrict any use of the information to criminally investigate or prosecute any alcohol or drug abuse patient.[facility] HospitalIn the event this information is protected by the Federal Confidentiality of Alcohol and Drug Abuse Patient Records regulations: The Federal rules restrict any use of the information to criminally investigate or prosecute any alcohol or drug abuse patient.[facility] HospitalIn the event this information is protected by the Federal Confidentiality of Alcohol and Drug Abuse Patient Records regulations: The Federal rules restrict any use of the information to criminally investigate or prosecute any alcohol or drug abuse patient.[facility] HospitalIn the event this information is protected by the Federal Confidentiality of Alcohol and Drug Abuse Patient Records regulations: The Federal rules restrict any use of the information to criminally investigate or prosecute any alcohol or drug abuse patient.[facility] HospitalIn the event this information is protected by the Federal Confidentiality of Alcohol and Drug Abuse Patient Records regulations: The Federal rules restrict any use of the information to criminally investigate or prosecute any alcohol or drug abuse patient.[facility] Reason for Visit (unrecogniz ed section and content) ReasonCommentsNew PatientMemory lossSpecialtyDiagnoses / ProceduresReferred By ContactReferred To ContactMR IMAGING Diagnoses Cognitive impairment, mild, so stated 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) Depression, unspecified depression type Procedures MRI BRAIN WO IVCON MRI BRAIN BRAIN STEM W/[place] [address] [place] [address] Mr Imaging Referral IDStatusReasonStart DateExpiration DateVisits RequestedVisits [id number] Auto-Generated Referral /[id number]SbucdzeipYowdsfnlx / Procedures Referred By ContactReferred To ContactLINCOLN COUNTY MEDICAL CENTERIRATORY INSTITUTE Diagnoses Shortness of breath Procedures SPIROMETRY WITH DILATOR IF OBSTRUCTED BRNCDILAT RSPSE SPMTRY PRE&POST-BRNCDILAT Marisol Olivares MD [address] [place] [id number] [facility] [place] [address] [place] [address] Referral IDStatusReasonStart DateExpiration DateVisits RequestedVisits [id number] Auto-Generated Referral /[id number] Patient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)ReasonCommentsCare Coordinator - OtherIn response to order placed in EPICReasonCommentsEstablished PatientReasonComments Follow-upMEDS/SHOULDERReasonCommentsEstablished PatientFollow UpSpecialty Diagnoses / ProceduresReferred By ContactReferred To ContactNeurology / NEUROLOGY Diagnoses Follow-up exam Follow up Procedures OFFICE/OUTPATIENT ESTABLISHED HIGH MDM 40 MIN EST NI PATIENT Self Eun Trent, DO [address] [place] [address] Referral IDStatusReasonStart DateExpiration DateVisits RequestedVisits [id number] Financial Clearance Not Required Patient Cleared - INN Insurance Found [id number] / ProceduresReferred By Contact Referred To ContactCT IMAGING Diagnoses Memory loss Procedures CT BRAIN WO IVCON CT HEAD/BRAIN W/O CONTRAST MATERIAL Eun Trent, DO [address] [place] [address] Ct [facility] [place] [address] Referral IDStatusReasonSttacoma DateExpiration DateVisits RequestedVisits [id number] Auto-Generated Referral [id number] RefillSpecialtyDiagnoses / Procedures Referred By ContactReferred To Contact Diagnoses Memory loss Procedures NEUROPSYCHOLOGICAL TESTING CONSULT NEUROBEHAVIORAL STATUS XM PHYS/QHP 1ST HOUR NEUROPSYCHOLOGICAL TST EVAL PHYS/QHP 1ST HOUR NEUROPSYCHOLOGICAL TST EVAL PHYS/QHP EA ADDL HR PSYCL/NRPSYCL TST TECH 2+ TST 1ST 30 MIN PSYCL/NRPSYCL TST TECH 2+ TST EA ADDL 30 MIN Eun Trent, DO [address] [place] [address] Referral IDStatusReasonStart DateExpiration DateVisits RequestedVisits [id number] PCP Requested Referral [id number]zjOtmhwgWasyvxqeYikpwj-lrUkgucs CommentsNeck PainReasonCommentsHypertensionReasonCommentsNew PatientCADReason Onset AuyuNkkepobiValzrsr79/22/2025ReasonCommentsCare Coordinator - Other Care Teams (unrecognized sec tion and content) Team MemberRelationshipSpecialtyStart DateEnd Date GenesisMirtha smithThomas [address] [place] [address] NI Referring TeamPsychiatry12/21/21Team MemberRelationshipSpecialtyStart DateEnd Date [facility] CenterM[facility]Thomas [address] [place] [address] NI Referring TeamPsychiatry12/21/21Team MemberRelationshipSpecialtyStart DateEnd Date [facility] CenterMirthaThomas [address] [place] [address] NI Referring TeamPsychiatry12/21/21Team MemberRelationshipSpecialtyStart DateEnd Date GenesisMirtha smithThomas [address] [place] [address] NI Referring TeamPsychiatry12/21/21Team MemberRelationshipSpecialtyStart DateEnd Date [facility] CenterMirthaThomas [address] [place] [address] NI Referring TeamPsychiatry12/21/21Team MemberRelationshipSpecialtyStart DateEnd Date [facility] CenterMirthaThomas [address] [place] [address] NI Referring TeamPsychiatry12/21/21Team MemberRelationshipSpecialtyStart DateEnd Date [facility] CenterMirthaThomas [address] [place] [address] NI Referring TeamPsychiatry12/21/21 Team Status: Inactive Member Role Status Dates Corona Monroe MD Attending Provider Active Casper Cooper Care ProviderActive Team Status: Active Member Role Status Dates Daria Cardoza DO Primary Care Provider Active Team MemberRelationshipSpecialtyStart DateEnd Date Franky Hurtadoam [address] [place] [address] NI Referring TeamPsychiatry12/21/21Team MemberRelationshipSpecialtyStart DateEnd Date Shaikh [...] Date Thomas Hurtado MD [address] [place] [address] NI Referring TeamPsychiatry12/21/21Team MemberRelationshipSpecialtyStart DateEnd Date Thomas Hurtado MD [address] [place] [address] NI Referring TeamPsychiatry12/21/21Team MemberRelationshipSpecialtyStart DateEnd Date Shaikh Grimes MD [facility] [place] [address] PCP - Aet10/11/23 Jose Beckford MD [address] [place] [address] PCP - [facility]06/09/24 Jayy Coronado, PARI [address] [place] [address] [facility]06/09/24Team MemberRelationshipSpecialtyStart DateEnd Date Shaikh Grimes MD [address] [place] [address] PCP - [facility]10/11/23 Jose Beckford MD [address] [place] [address] PCP - [facility]06/09/24 Jayy Coronado, PARI [address] [place] [address] [facility] Pract[facility]06/09/24Team MemberRelationshipSpecialtyStart DateEnd Date Shaikh Grimes MD [address] [place] [address] [facility]10/[facility] Jose Beckford MD [address] [place] [address] PCP - [facility]06/09/24 Jayy Coronado NP [address] [place] [address] Nurse PractitionerFamsly Atezepoa55/29/24 Vannessa Russell MA Family Zrgeavxe57/01/2411Team MemberRelationshipSpecialtyStart DateEnd Date Shaikh Grimes MD [address] [place] [address] PCP - [employer]10/11/23 Jose Beckford MD [address] [place] [address] PCP - Generalmily Gqigeguy48/29/24 Jayy Coronado NP [address] [place] [address] [facility]06/09/24Team MemberRelationshipSpecialtyStart DateEnd Date Shaikh Grimes MD [address] [place] [address] PCP - [employer]10/11/23 Jose Beckford MD [address] [place] [address] PCP - GeneralFamily Hsngckea14/29/24 Jayy Coronado NP [address] [place] [address] Nurse PractitionerFamily Jeqkyzom01/29/24Team MemberRelationshipSpecialtyStart DateEnd Date Shaikh Grimes MD [address] [place] [address] PCP - GeneralInternal Medicine08/12/22 Shaikh Grimes MD [address] [place] [address] PCP - [employer]10/11/23Team MemberRelationshipSpecialtyStart DateEnd Date Thomas Hurtado MD [address] [place] [address] [facility] TeamPsychiatry12/21/21Team MemberRelationshipSpecialtyStart DateEnd Date Jose Beckford MD [address] [place] [address] PCP - Generalmily Invuljhf39/29/24 Jayy Coronado NP [address] [place] [address] Nurse Practitionermily Wijaorkt72/29/24Team MemberRelationshipSpecialtyStart DateEnd Date Jose Beckford MD [address] [place] [address] PCP - Generalmily Qlghvene48/29/24 Jayy Coronado NP [address] [place] [address] Nurse Practitionermily Phhxwgze54/29/24Team MemberRelationshipSpecialtyStart DateEnd Date Thomas Hurtado MD [address] [place] [address] [place] Referring TeamPsychiatry12/21/21 Team Status: Inactive Member Role Status Dates NON STAFF Primary Care Provider Active Start: October 27, 2024 End: October 27ashish Toscano MDAttending ProviderActiveStart: October 27, 2024 End: October 27, 2024Team MemberRelationshipSpecialtyStart DateEnd Date Jose Beckford MD [address] [place] [address] [facility] - [facility] Fnmbvxja96/29/24 Jayy Coronado NP [address] Nurse PractitionerCass County Health Systemly Erzncftg20/29/24Team MemberRelationshipSpecialtyStart DateEnd Date Jose Beckford MD [address] [place] [address] PCP - GeneralFami Wmcoebyz92/29/24 Jayy Coronado NP [address] [place] [address] Nurse PractitionerCass County Health Systemly Rkjvlsjt96/29/24Team MemberRelationshipSpecialtyStart DateEnd Date Jose Beckford MD [address] [place] [address] PCP - GeneralSaint [facility] Gducxdjp25/29/24 Jayy Coronado NP [address] [place] [address] Nurse PractitionerFamily Yzcjthgh63/29/24Team MemberRelationshipSpecialtyStart DateEnd Date Jose Beckford MD [address] [place] [address] PCP - Generalmi Nkooxpah33/29/24 Jayy Coronado NP [address] [place] [address] [facility]06/09/24Team MemberRelationshipSpecialtyStart DateEnd Date Jose Beckford MD [address] [place] [address] PCP - [facility]06/09/24 Jayy Coronado NP [address] [place] [address] Nurse PractitionerStephen[facility]06/09/24Team MemberRelationshipSpecialtyStart DateEnd Date Jose Beckford MD [address] [place] [address] PCP - Generalmi Ttlgefyt50/29/24 Jayy Coronado, PARI [address] [place] [address] Nurse Pract[facility]er[facility]06/09/24Team MemberRelationshipSpecialtyStart DateEnd Date Jose Beckford MD [address] [place] [address] PCP - Generalmi Rxxxxlll51/29/24 Jayy Coronado NP [address] [place] [address] Nurse Practitionermily Ershewyz61/29/24Team MemberRelationshipSpecialtyStart DateEnd Date Jose Beckford MD [address] [place] [address] PCP - GeneralFamily Ibzfcvzv35/29/24 Jayy Coronado NP [address] [place] [address] Nurse PractitionerSaint [facility] Vofbpxfx49/29/24Team MemberRelationshipSpecialtyStart DateEnd Date Jose Beckford MD [address] [place] [address] PCP - Generalmily Wxybjuns77/29/24 Jayy Coronado NP [address] [place] [address] Nurse PractitionerSaint [facility] Oujcpqic57/29/24Team MemberRelationshipSpecialtyStart DateEnd Date Jose Beckford MD [address] [place] [address] PCP - GeneralFamily Domcbnbh54/29/24 Jayy Coronado, PARI [address] [place] [address] Nurse PractitionerSaint [facility] Fdtqxrtu47/29/24Team MemberRelationshipSpecialtyStart DateEnd Date Jose Beckford MD [address] [place] [address] PCP - Generalmily Blibgwln91/29/24 Jayy Coronado NP [address] [place] [address] Nurse Pract[facility]er[facility]06/09/24 Team Status: Inactive Member Role Status Dates NON STAFF Primary Care Provider Active Start: January 19, 2025 End: January 19Nette Gudinoending ProviderActiveStart: January 19, 2025 End: January 19, 2025Team MemberRelationshipSpecialtyStart DateEnd Date Noa Watson, CUFF MATCHER-FLIGHT OPERATIONS ENGINEER [address] [place] [address] PCP - [facility] [place]01/11/25Team MemberRelationshipSpecialtyStart Date End Date Jose Beckford MD [address] [place] [address] PCP - [facility]06/09/24 Jayy Coronado NP [address] [place] [address] Nurse Practitioner[facility]06/09/24Team MemberRelationshipSpecialtyStart DateEnd Date Jose Beckford MD [address] [place] [address] PCP - GeneralStephen[facility]06/09/24 Jayy Coronado NP [address] [place] [address] Nurse PractitionerStephen[facility]06/09/24Team MemberRelationshipSpecialtyStart DateEnd Date Jose Beckford MD [address] [place] [address] PCP - GeneralFamily Edcechig57/29/24 Jayy Coronado NP [address] [place] [address] Nurse PractitionerFamily Kjoppszh13/29/24Team MemberRelationshipSpecialtyStart DateEnd Date Noa Watson, CUFF MATCHER-FLIGHT OPERATIONS ENGINEER PCP - [facility] [place] Practitioner01/11/25Team MemberRelationshipSpecialtyStart Date End Date Jose Beckford MD [address] [place] [address] PCP - Generalmily Yetzjmuv82/29/24 Jayy Coronado NP [address] [place] [address] Nurse PractitionerCass County Health Systemly Ppeczvgm30/29/24Team MemberRelationshipSpecialtyStart DateEnd Date Noa Watson, FLIGHT OPERATIONS ENGINEER [address] [place] [address] PCP - GeneralFamily Medicine04/01/25 Thomas Hurtado MD [address] [place] [address] [place] Referring TeamPsychiatry12/21/21Team MemberRelationshipSpecialtyStart DateEnd Date Noa Watson, FLIGHT OPERATIONS ENGINEER [address] [place] [address] PCP - GeneralFamily Medicine04/01/25 Thomas Hurtado MD [address] [place] [address] NI Referring TeamPsychiatry12/21/21Team MemberRelationshipSpecialtyStart DateEnd Date Noa Watson MÓNICA Clancy [address] [place] [address] PCP - GeneralFamily Medicine04/01/25 Thomas Hurtado MD [address] [place] [address] NI Referring TeamPsychiatry12/21/21Team MemberRelationshipSpecialtyStart DateEnd Date Shaikh Grimes MD PCP - GeneralInternal Medicine08/12/2309 Shaikh Grimes MD [address] [place] [address] PCP - [employer]/ Jose Beckford MD [address] [place] [address] PCP - GeneralFamily Kwcfjddf40/29/24 Jayy Coronado NP [address] [place] [address] Nurse Practitionermily Auuwlixx06/29/24 Vannessa Russell, MINESH [address] [place] [address] Family Klizfind11/6/2411 Goals (unrecognized section and content) Goals may [...] BE BASED ON THE PRIMARY CLINICAL RECORDS. [address] [facility]. provides no warranty or guarantee of the accuracy or completeness of information in this document.
== END 2025-07-22 10:34 | disposition home or self-care (01) ==
LOC: US 10:37
PROVIDERS: PCP Nurse Practitioner; Visit Provider Internal Medicine Interventional Cardiology
DX: G89.18 Other acute postprocedural pain (principal); I97.638 Postprocedural hematoma of a circulatory system organ or structure following other circulatory system procedure
CPT/HCPCS: 93926

== ENCOUNTER 2025-07-30 15:40 | Outpatient (OUT) | payer MEDICARE, SELFPAY ==
--- OUTSIDE RECORDS SUMMARY | 2025-07-22 | XMS_ITS | Encounter Summary ---
Author Organization [facility] Address [address] [place] [address] Care Team Providers Care Supervisor Inspection Department Name Role Phone Susan Watson MD Primary Care Provider [phone] Encounter Details DateTypeDepartmentCare Team (Latest Contact Info)Mimnveurjuf06/11/2025 - 07/22/2025 12:04 AM ESTHospital Encounter [facility] Radiology External Films [address] [place] [address] Discharge Disposition: Home or Self Care () Social History Tobacco UseTypesPacks/DayYears UsedDateSmoking Tobacco: FormerCigarettes2.525 1968 - 1993Smokeless Tobacco: CurrentChewAlcohol UseStandard Drinks/WeekComments Not Currently0 (1 standard drink = 0.6 oz pure alcohol)PHQ-2AnswerDate Recorded Patient Health Questionnaire-2 Lbrut45208/14/2024Humiliation, Afraid, Rape, and Kick questionnaireAnswerDate RecordedWithin the [...] times a week06/15/2025How often do you attend jehovah's witness or adventism services?Never06/15/2025Do you belong to any clubs or organizations such as jehovah's witness groups, unions, fraternal or athletic groups, or school groups?No06/15/2025How often do you attend meetings of the clubs or organizations you belong to?Never06/15/2025re you , , , , never , or living with a partner?Vxyofzcpt85/04/2025UDIT-C AnswerDate RecordedQ1: How often do you have [...] medical care, and heating?Not hard at all06/29/2025 [facility] [place] of Occupational Health - Occupational Stress Questionnaire AnswerDate RecordedDo you feel stress - tense, restless, nervous, or anxious, or unable to sleep at night because yourmind is troubled all the time - these days? Only a dogicc7706/15/2025HC UtilitiesAnswerDate RecordedIn the past 12 months has the [employer], gas, oil, or water [employer] threatened to shut off services in your [...] Assigned at BirthMale 04/08/2025 7:15 AM EDTLegal VaqQkbr1702/07/2022 10:15 PM EDTGender IdentityMale 04/08/2025 7:15 AM EDTSexual OrientationHeterosexual or Hrnnpypt66/28/2025 7:15 AM EDTdocumented as of this encounter Medications at Time of Discharge MedicationSigDispense QuantityRefillsLast FilledStart DateEnd Date albuterol 90 mcg/actuation inhaler INHALE 1 PUFF BY MOUTH EVERY 4 HOURS VZMETU4812/02/2021 aspirin 81 mg EC tablet Take 1 [...] mouth in the morning and at bedtime. lxjidpzkote-wcpdhokws-rhngxxov (Trelegy Ellipta) 100-62.5-25 mcg blister with device [...] times daily for 197 doses. 90 tablet 502/12/2025 sertraline (Zoloft) 100 mg tablet Take 2 tablets by mouth in the morning. sodium zirconium cyclosilicate (Lokelma) 10 gram packet Indications:Essential hypertension,Kidney disease, chronic, stage IV (GFR 15-29 ml/min) (CMS/HCC),HyperkalemiaTake 10 g by mouth 3 (three) times a week. 120 g 07/07/2025 traZODone (Desyrel) 100 mg tablet Take 1 tablet by mouth at bedtime. acetaminophen (Tylenol Extra Strength) 500 mg tablet Indications:Lower extremity pain, bilateralTake 2 tablets (1,000 mg) by mouth every 6 (six) hours if needed for moderate pain (4-7 pain score). 30 tablet 5110/09/2024 isosorbide mononitrate ER (Imdur) 60 mg 24 hr tablet Take 60 mg by mouth in the morning.10/22/2019 OLANZapine (ZyPREXA) 2.5 mg tablet 12/25/2024documented as of this encounter Plan of Treatment DateTypeDepartmentCare Team (Latest Contact Info)Mdhdobilcxk87/12/2026 1:30 PM ESTHospital Encounter [facility] Main Operating Room [address] [place] [address] Chris Andre MD [address] [facility] [place] [address] 08/23/2025 1:30 PM EST - 08/23/2025 5:00 PM ESTSurgery [facility] Main Operating Room [address] [facility] [place] [address] Chris Andre MD [address] [place] [address] ENDARTERECTOMY, FEMORAL WITH POSSIBLE FEM TO POP WBJPBU4809/21/2025 11:00 AM EST Follow-Up [facility] [address] [facility] [place] [address] Batsheva Beckwith MD [address] [facility] [place] [address] 10/21/2025 1:00 PM EDTAppointment [facility] CT Imaging [address] [place] [address] NamePriorityAssociated DiagnosesDate/TimeENDARTERECTOMY, FEMORAL Peripheral arterial occlusive disease Encounter for pre-operative examination 08/23/2025 1:30 PM ESTdocumented as of this encounter Goals GoalPatient Goal TypeAssociated ProblemsRecent ProgressPatient-Stated?Author Blood Pressure < 140/90 Blood Xyxzhgxj336/68(07/22/2025 2:32 PM EST)Cy Child, RNdocumented as of this encounter Procedures Procedure NamePriorityDate/TimeAssociated DiagnosisCommentsCT TRANSFER OF OUTSIDE YMMSGMzkpwzp15/11/2025 12:00 AM EST documented in this encounter [...] DateEnd Date Susan Watson MD [address] [place] [place] [address] PCP - GeneralNurse Practitioner10/13/24documented as of this encounter
--- OUTSIDE RECORDS SUMMARY | 2025-07-22 00:05 | XMS_ITS | Encounter Summary ---
Author Organization [facility] Address [address] [place] [address] Care Team Providers Care Full Fashioned Garment Knitter Name Role Phone Susan Watson MD Primary Care Provider [phone] Encounter Details DateTypeDepartmentCare Team (Latest Contact Info)Fjpfmlfaskf71/11/2025 12:05 AM EST - 07/22/2025 11:59 PM ESTHospital Encounter [facility] Radiology External Films [address] [place] [phone] Discharge Disposition: Home or Self Care () Social History Tobacco UseTypesPacks/DayYears UsedDateSmoking Tobacco: FormerCigarettes2.525 1968 - 1993Smokeless Tobacco: CurrentChewAlcohol UseStandard Drinks/WeekComments Not Currently0 (1 standard drink = 0.6 oz pure alcohol)PHQ-2AnswerDate Recorded Patient Health Questionnaire-2 Wboin29408/14/2024Humiliation, Afraid, Rape, and Kick questionnaireAnswerDate RecordedWithin the [...] times a week06/15/2025How often do you attend mosque or sabianism services?Never06/15/2025Do you belong to any clubs or organizations such as mosque groups, unions, fraternal or athletic groups, or school groups?No06/15/2025How often do you attend meetings of the clubs or organizations you belong to?Never06/15/2025re you , , , , never , or living with a partner?Sfwxqqbmk93/04/2025UDIT-C AnswerDate RecordedQ1: How often do you have [...] medical care, and heating?Not hard at all06/29/2025 [facility] of Occupational Health - Occupational Stress Questionnaire AnswerDate RecordedDo you feel stress - tense, restless, nervous, or anxious, or unable to sleep at night because yourmind is troubled all the time - these days? Only a ehwjok5306/15/2025HC UtilitiesAnswerDate RecordedIn the past 12 months has [...] homeless or living in a custodial (including now)?No06/29/2025Hunger Vital SignAnswerDate Recorded Within the past 12 months, you worried that your food would run out before you got the money to buymore.Never true06/29/2025Within the past 12 months, the food you bought just didn't last and you didn't have money to get more.Never true 06/29/2025Sex and Gender InformationValueDate RecordedSex Assigned at BirthMale 04/08/2025 7:15 AM EDTLegal LizJfqt9902/07/2022 10:15 PM EDTGender IdentityMale 04/08/2025 7:15 AM EDTSexual OrientationHeterosexual or Jrsbntxo06/28/2025 7:15 AM EDTdocumented as of this encounter Medications at Time of Discharge MedicationSigDispense QuantityRefillsLast FilledStart DateEnd Date albuterol 90 mcg/actuation inhaler INHALE 1 PUFF BY MOUTH EVERY 4 HOURS FCSTND1112/02/2021 aspirin 81 mg EC tablet Take 1 [...] mouth in the morning and at bedtime. pwpoxwywitx-gmueajrfu-uigqhcbe (Trelegy Ellipta) 100-62.5-25 mcg blister with device [...] moderate pain (4-7 pain score). 30 tablet amoxicillin-pot clavulanate (Augmentin) 875-125 mg tablet Indications:HemoptysisTake 1 tablet by mouth two times daily for 10 days. 20 tablet furosemide (Lasix) 20 mg tablet Take 20 mg by mouth in the morning and at bedtime. isosorbide mononitrate ER (Imdur) 60 mg 24 hr tablet Take 60 mg by mouth in the morning.10/22/2019 OLANZapine (ZyPREXA) 2.5 mg tablet 12/25/2024documented as of this encounter Plan of Treatment DateTypeDepartmentCare Team (Latest Contact Info)Ijccljksrqe29/12/2026 1:30 PM ESTHospital Encounter [facility] Main Operating Room [address] [place] [phone] Chris Andre MD [address] [place] [address] 08/23/2025 1:30 PM EST - 08/23/2025 5:00 PM ESTSurgery [facility] Main Operating Room [address] [place] [phone] Chris Andre MD [address] [facility] [place] [address] ENDARTERECTOMY, FEMORAL WITH POSSIBLE FEM TO POP VJVKIH5509/21/2025 11:00 AM EST Follow-Up [facility] Neph[facility] [address] [place] [address] Batsheva Beckwith MD [address] [facility] [address] 10/21/2025 1:00 PM EDTAppointment [facility] CT Imaging [address] [place] [address] NamePriorityAssociated DiagnosesDate/TimeENDARTERECTOMY, FEMORAL Peripheral arterial occlusive disease Encounter for pre-operative examination 08/23/2025 1:30 PM ESTdocumented as of this encounter Goals GoalPatient Goal TypeAssociated ProblemsRecent ProgressPatient-Stated?Author Blood Pressure < 140/90 Blood Utixpjqx925/68(07/22/2025 2:32 PM EST)Cy Child, RNdocumented as of this encounter Procedures Procedure NamePriorityDate/TimeAssociated DiagnosisCommentsXR TRANSFER OF OUTSIDE RJDXMYqvvqhp25/11/2025 12:05 AM EST documented in this encounter [...] Date Susan Watson MD [address] [place] [address] PCP - GeneralNurse Practitioner10/13/24documented as of this encounter
--- OUTSIDE RECORDS SUMMARY | 2025-07-22 09:30 | XMS_ITS | Encounter Summary ---
Author Organization [facility] Address [address] [place] [address] Care Team Providers Care Custom Decorating Consultant Name Role Phone Susan Watson MD Primary Care Provider [phone] Reason for Referral * Imaging (Routine) - AuthorizedSpecialtyDiagnoses / ProceduresReferred By ContactReferred To ContactCardiology Diagnoses Post-operative pain Procedures Vascular US lower extremity pseudoaneurysm evaluation duplex right Sarah Tolliver MD [address] [place] [address] Phone: tel: fax: Referral IDStatusReasonStart DateExpiration DateVisits RequestedVisits [id number] Perform Procedure Encounter Details DateTypeDepartmentCare Team (Latest Contact Info)Lfxeccrlycd04/11/2025 9:30 AM ESTFollow-Up [facility] at [place] [address] [place] [address] Sarah Tolliver MD [address] [place] [address] Dyspnea, unspecified type (Primary Dx); Chronic obstructive pulmonary disease, unspecified COPD type (CMS/HCC); PAD (peripheral artery disease); Chronic kidney disease, stage 4 (severe) (CMS/HCC); Reduced ejection fraction concurrent with and due to acute heart failure (CMS/HCC); Post-operative pain Social History Tobacco UseTypesPacks/DayYears UsedDateSmoking Tobacco: FormerCigarettes2.525 1968 - 1993Smokeless Tobacco: CurrentChewAlcohol UseStandard Drinks/WeekComments Not Currently0 (1 standard drink = 0.6 oz pure alcohol)PHQ-2AnswerDate Recorded Patient Health Questionnaire-2 Ezdyo12508/14/2024Humiliation, Afraid, Rape, and Kick questionnaireAnswerDate RecordedWithin the [...] week06/15/2025How often do you attend gnosticist or denominational services?Never06/15/2025Do you belong to any clubs or organizations such as gnosticist groups, unions, fraternal or athletic groups, or school groups?No06/15/2025How often do you attend meetings of the clubs or organizations you belong to?Never06/15/2025re you , , , , never , or living with a partner?Xcjsigvlz90/04/2025UDIT-C AnswerDate RecordedQ1: How often do you have [...] heating?Not hard at all06/29/2025 [facility] [place] of Occupational Health - Occupational Stress Questionnaire AnswerDate RecordedDo you feel stress - tense, restless, nervous, or anxious, or unable to sleep at night because yourmind is troubled all the time - these days? Only a ifpqet3406/15/2025HC UtilitiesAnswerDate RecordedIn the past 12 months has [...] Assigned at BirthMale 04/08/2025 7:15 AM EDTLegal EpyRhty9902/07/2022 10:15 PM EDTGender IdentityMale 04/08/2025 7:15 AM EDTSexual OrientationHeterosexual or Fumkvamb15/28/2025 7:15 AM EDTdocumented as of this encounter Last Filed Vital Signs Vital SignReadingTime TakenCommentsBlood Tvojzcvt460/6007/22/2025 9:56 AM EST Twpzm796707/22/2025 9:56 AM ESTTemperature--Respiratory Rate--Oxygen Wvwqlpokch69% 07/22/2025 9:56 AM ESTInhaled Oxygen Concentration--Ntpnam96.9 kg (154 lb) 07/22/2025 9:56 AM DJFQnvugg137.3 cm (5' 9 )07/22/2025 9:56 AM ESTBody Mass Index22.7407/22/2025 9:56 AM ESTdocumented in this encounter Progress Notes * Sarah Tolliver MD - 07/22/2025 9:30 AM EST Images from the original note were not included. [facility] Cardiology Clinic Note Chief Complaint: Patient here for follow up angiogram. He is scheduled for surgery with Dr. Andre next month. Was admitted to [facility] recently for hemoptysis. Denies chest pain but feeling well. HPI: You Garcia is a 70 y.o. male with a history of coronary artery disease, prior coronary artery bypass graft surgery, peripheral arterial disease, COPD, dyslipidemia, movement disorder who has not been seen for 2-1/2 years For the most part, he has been doing well; he denies chest pain, his shortness of breath is stable,he denies palpitations. He does have occasional lightheadedness. [...] disease Gastroesophageal reflux disease Recurrent major depression Update 07/22/2025: The patient was recently admitted to the hospital for appear to be pulmonary etiologies. He was found to have hemoptysis and an abnormality on his chest CT. No angina, no orthopnea, no paroxysmal external dyspnea, no significant lower extremity edema Pertinently, he has been losing weight over the past several weeks. Cardiology ROS: Review of Systems HENT: Positive for nosebleeds. Cardiovascular: Positive for dyspnea on exertion. Respiratory: Positive for hemoptysis and shortness of breath. Hematologic/Lymphatic: Bruises/bleeds easily. Neurological: Positive for light-headedness and loss of balance. All other systems reviewed and are negative. Past Medical History He has a past medical history of Anxiety, Atherosclerosis of arteries of extremities, Cancer (CMS/HCC), Chronic kidney disease, stage 4 (severe) (CMS/HCC), Coronary artery disease, Depression, Dyspnea on exertion, Emphysema lung (CMS/HCC), Frequent falls, GERD (gastroesophageal reflux disease), Hype rlipidemia, Hypertension, Intermittent claudication, MCI (mild cognitive impairment), Migraine, Mitral regurgitation, PAD (peripheral artery disease), Peripheral arterial occlusive disease, Pulmonaryhyperinflation, and Sleep apnea. Surgical History He has a past surgical history that includes Cardiac catheterization; Coronary artery bypass graft;Colonoscopy; Cataract extraction; Lung biopsy; Lung removal, partial; and Femoral bypass (Right). Social History He reports that he has quit smoking. His smoking use included cigarettes. His smokeless tobacco useincludes chew. He reports that he does not currently use alcohol. He reports that he does not use drugs. Family History Family History Problem Relation Name Age of Onset Diabetes Mother Elizabeth Allergies Patient has no known allergies. Medications Current Outpatient Medications: acetaminophen (Tylenol Extra Strength) 500 mg tablet, Take 2 tablets (1,000 mg) by mouth every 6 (six) hours if needed for moderate pain (4-7 pain score)., Disp: 30 tablet, Rfl: 0 albuterol 90 mcg/actuation inhaler, INHALE 1 PUFF BY MOUTH EVERY 4 HOURS NEEDED, Disp: , Rfl: aspirin 81 mg EC [...] morning and at bedtime., Disp: , Rfl: aiwovettdpc-ksghjonmn-kzvwxiar (Trelegy Ellipta) 100-62.5-25 mcg blister with device, [...] times a week., Disp: 120 g, Rfl: 0 traZODone (Desyrel) 100 mg tablet, Take 1 tablet by mouth at bedtime., Disp: , Rfl: Last Recorded Vitals BP 104/60 (BP Location: Left arm, Patient Position: Sitting) Pulse 66 Ht 1.753 m (5' 9 ) Wt 69.9 kg (154 lb) SpO2 98% BMI 22.74 kg/m?? Physical Examination: GENERAL: alert and oriented x3, [...] are 2+ bilaterally. No rash/skin discoloration present. GROIN: Postoperative changes; some firmness, no tenderness,No bleeding, no oozing, no obvious signsof infection NEURO: strength/sensation equal and symmetric in bilateral [...] occluded right coronary artery. 2. Severe 3-vessel shosh[place]paiute coronary artery disease. 3. Patent left internal [...] Laboratory Report FINAL IMPRESSIONS: 1. Severe 3-vessel shoshone[place]pai[place] coronary artery disease. 2. A 2/3 bypass grafts patent; the radial artery graft to the posterior descending artery is occluded. 3. Severe, heavily calcific lesion of the right common femoral artery; this is a new angiographic finding. Conclusion Cardiovascular Laboratory Report 05/11/2025 FINAL IMPRESSIONS: Severe, three-vessel shoshone-paiute coronary artery disease There are 2 out of 3 bypass graft patent; the saphenous vein graft to the posterior descending branch is known to be occluded Mildly reduced global left ventricular systolic function by noninvasive imaging RECOMMENDATIONS: The patient is at acceptable moderate risk [...] heart failure with midrange ejection fraction should includea beta-kelsy, RAAS inhibitor/Entresto, and SGLT2 inhibitor and spironolactone; his chronic kidneydisease is prohibitive-we will stop hydralazine/nitrate combination and lieu of a RAAS inhibitor Follow-up with Dr. Tolliver in the next 2-3 months PROCEDURES: Ultrasound-guided access to the left common femoral artery, limited femoral angiography, bilateral selective coronary angiography, radial artery graft angiography, angiography of the leftinternal mammary artery graft, angiography of the left subclavian artery Op Note by Chris Andre MD at 06/07/2025 2:51 PM Author: Chris Andre MD Service: General Surgery Author Type: Physician Filed: 06/08/2025 8:53 PM Date of Service: 06/07/2025 2:51 PM Status: Signed Junior Account Executive: Chris Andre MD (Physician) Related Notes: Original Note by Omer Nathan MD (Resident) filed at 06/08/2025 7:51 AM Right Femoral- Popliteal Bypass with 8mm Propaten Graft above the knee (R), ENDARTERECTOMY, COMMON FEMORAL ARTERY, PROFUNDA , AND (R) Operative Note Date: 06/07/2025 Location: [facility] OR Name: You Garcia, : 1955, Diagnosis Pre-op Diagnosis * Lower extremity pain, bilateral [M79.604, M79.605] * Severe claudication [I73.9] * Encounter for pre-operative examination [Z01.818] Post-op Diagnosis * Lower extremity pain, bilateral [M79.604, M79.605] * Severe claudication [I73.9] * Encounter for pre-operative examination [Z01.818] Procedures Right Femoral- Popliteal Bypass with 8mm Propaten Graft above the knee [address]8796 - NC BYPASS W/VEIN FEMORAL-POPLITEAL ENDARTERECTOMY, COMMON FEMORAL ARTERY, PROFUNDA , AND Assessment: Hemoptysis Groin firmness s/p recent surgery Coronary artery disease, history of coronary artery bypass graft surgery Dyspnea on exertion Peripheral arterial disease; heavily calcified right common femoral artery s/p Right Femoral- Popliteal Bypass with 8mm Propaten Graft above the knee (R), ENDARTERECTOMY, COMMON FEMORAL ARTERY, PROFUNDA Dyslipidemia COPD Chronic kidney disease Primary hypertension Generalized anxiety disorder Gastroesophageal reflux disease Recurrent major depression Major neurocognitive disorder i.e. dementia Balance disorder Lower extremity weakness Plan: Will obtain a groin ultrasound to rule out any significant fluid collections or postoperative complications He is to follow-up with his primary care physician and pulmonology regarding his pulmonary disorders Continue optimal medical therapy for coronary artery disease including aspirin, high intensity statin therapy, a beta-kelsy and an angiotensin-converting enzyme inhibitor. He is also on Imdur. Follow-up with vascular surgery for revascularization as planned RTC in 3-4 months or sooner should problems arise Sarah Tolliver MD, MPH, [facility], [facility], [facility] Interventional Cardiology Pager Email: [email or web address] documented in this encounter Plan of Treatment DateTypeDepartmentCare Team (Latest Contact Info)Wrufxsfxhei71/12/2026 1:30 PM ESTHospital Encounter [facility] Main Operating Room [address] [place] [address] Chris Andre MD [address] [place] [address] 08/23/2025 1:30 PM EST - 08/23/2025 5:00 PM ESTSurgery [facility] Main Operating Room [address] [place] [address] Chris Andre MD [address] [place] [address] ENDARTERECTOMY, FEMORAL WITH POSSIBLE FEM TO POP OFNCYR8409/21/2025 11:00 AM EST Follow-Up [facility] Nephrology [address] [place] [address] Batsheva Beckwith MD [address] [facility] [address] [facility] [place] [address] 10/21/2025 1:00 PM EDTAppointment [facility] CT Imaging [address] [place] [address] NameTypePriorityAssociated DiagnosesOrder ScheduleVascular US lower extremity pseudoaneurysm evaluation duplex rightVascular UltrasoundRoutine Post-operative pain Expected: 07/22/2025 (Approximate), Expires: 07/22/2027NamePriorityAssociated DiagnosesDate/TimeENDARTERECTOMY, FEMORAL Peripheral arterial occlusive disease Encounter for pre-operative examination 08/23/2025 1:30 PM ESTdocumented as of this encounter Goals GoalPatient Goal TypeAssociated ProblemsRecent ProgressPatient-Stated?Author Blood Pressure < 140/90 Blood Uqjxocbd229/68(07/22/2025 2:32 PM EST)Cy Child, JOHANAdocumented as of this encounter Visit Diagnoses Diagnosis Encounter for pre-operative examination- Primary Peripheral arterial occlusive disease Unspecified peripheral vascular disease Dyspnea, unspecified type- Primary Chronic obstructive pulmonary disease, unspecified COPD type (CMS/HCC) PAD (peripheral artery disease) Unspecified peripheral vascular disease Chronic kidney disease, stage 4 (severe) (CMS/HCC) Reduced ejection fraction concurrent with and due to acute heart failure (CMS/HCC) Post-operative pain Other acute postoperative pain Peripheral arterial occlusive disease Unspecified peripheral vascular disease Encounter for pre-operative examination documented in this encounter Care Teams Team MemberRelationshipSpecialtyStart DateEnd Date Susan Watson MD [address] [place] [address] PCP - GeneralNurse Practitioner10/13/24documented as of this encounter
--- OUTSIDE RECORDS SUMMARY | 2025-07-22 14:30 | XMS_ITS | Encounter Summary ---
Author Organization [facility] Address [address] [place] [address] Care Team Providers Care Java User Interface Developer Name Role Phone Susan Watson MD Primary Care Provider [phone] Reason for Referral * Imaging (Routine) - Pending ReviewSpecialtyDiagnoses / ProceduresReferred By ContactReferred To ContactRadiology Diagnoses Hemoptysis Procedures CT chest wo IV contrast Robert Brock MD [address] [place] [address] [place] [address] Phone: tel: fax: Referral IDStatusReasonStart DateExpiration DateVisits RequestedVisits [id number] Reason for Visit * ReasonCommentsCoughing Up Blood Encounter Details DateTypeDepartmentCare Team (Latest Contact Info)Kpkclgilser99/11/2025 2:30 PM ESTConsult [facility] Pulmonary [address] [place] [address] [place] [phone] Robert Brock MD [address] [place] [address] [place] [address] Hemoptysis (Primary Dx); Bleeding from the nose; S/P femoropopliteal bypass surgery; Coronary artery disease involving coronary bypass graft of [place] heart without angina pectoris; H/O: lung cancer Social History Tobacco UseTypesPacks/DayYears UsedDateSmoking Tobacco: FormerCigarettes2.525 1968 - 1993Smokeless Tobacco: CurrentChewAlcohol UseStandard Drinks/WeekComments Not Currently0 (1 standard drink = 0.6 oz pure alcohol)PHQ-2AnswerDate Recorded Patient Health Questionnaire-2 Ejtsb62608/14/2024Humiliation, Afraid, Rape, and Kick questionnaireAnswerDate RecordedWithin the [...] week06/15/2025How often do you attend orthodoxy or advent services?Never06/15/2025Do you belong to any clubs or organizations such as orthodoxy groups, unions, fraternal or athletic groups, or school groups?No06/15/2025How often do you attend meetings of the clubs or organizations you belong to?Never06/15/2025re you , , , , never , or living with a partner?Bhbnpyasd90/04/2025UDIT-C AnswerDate RecordedQ1: How often do you have [...] medical care, and heating?Not hard at all06/29/2025 [employer] [place] [employer] - Occupational Stress Questionnaire AnswerDate RecordedDo you feel stress - tense, restless, nervous, or anxious, or unable to sleep at night because yourmind is troubled all the time - these days? Only a wayzzw6106/15/2025HC UtilitiesAnswerDate RecordedIn the past 12 months has [...] Assigned at BirthMale 04/08/2025 7:15 AM EDTLegal AxwLjtr0602/07/2022 10:15 PM EDTGender IdentityMale 04/08/2025 7:15 AM EDTSexual OrientationHeterosexual or Fgtiznnt33/28/2025 7:15 AM EDTdocumented as of this encounter Last Filed Vital Signs Vital SignReadingTime TakenCommentsBlood Rusjfvcu484/6807/22/2025 2:32 PM EST Fsmnp700907/22/2025 2:26 PM ESTTemperature--Respiratory Rate--Oxygen Uwcofvhrnm63% 07/22/2025 2:26 PM ESTroom air at restInhaled Oxygen Concentration--Lnluun94.3 kg (155 lb)07/22/2025 2:26 PM GQZGudbnx359.1 cm (5' 5 )07/22/2025 2:26 PM EST Body Mass Index25.7912 2:26 PM ESTdocumented in this encounter Progress Notes * David Reid MD - 07/22/2025 2:30 PM EST Images from the original note were not included. Pulmonary Clinic Visit Note Patient: You Garcia Age: 70 y.o. : 1955 Account No.: [id number] Chief complaint: New patient-hemoptysis HPI The patient [...] the morning and at bedtime. Historical Provider, takwhlilnou-amrqiakxc-zblpesvc (Trelegy Ellipta) 100-62.5-25 mcg blister with device [...] PHART 7.41 06/07/2025 PHVEN 7.28 (L) 07/01/2025 RQU5XOL 37 06/07/2025 QFD4APG 43 07/01/2025 PO2ART 76 (L) 06/07/2025 PO2VEN 26 (L) 07/01/2025 TEV0THK 23.5 06/07/2025 NUU7YCE 20.2 07/01/2025 Radiology: No Chest X-ray results [...] artery disease involving coronary bypass graft of [place] heart without angina pectoris H/O: lung cancer [...] worse in the meantime David Reid MD [facility] Pulmonary/Critical Care Fellow [1] Past Medical History: [...] noted assessment and plan. Robert Brock MD [facility] Physicians Pulmonary and Critical Care Medicine documented in this encounter Plan of Treatment DateTypeDepartmentCare Team (Latest Contact Info)Xdzbnesbeti69/12/2026 1:30 PM ESTHospital Encounter [facility] Main Operating Room [address] [place] [place] [address] Chris Andre MD [address] [facility] [place] [address] 08/23/2025 1:30 PM EST - 08/23/2025 5:00 PM ESTSurgery [facility] Main Operating Room [address] [place] [address] Chris Andre MD [address] [facility] [place] [address] ENDARTERECTOMY, FEMORAL WITH POSSIBLE FEM TO POP LYAQAU5009/21/2025 11:00 AM EST Follow-Up [facility] Nephrology [address] [place] [address] Batsheva Beckwith MD [address] [facility] [address] [facility] [place] [address] 10/21/2025 1:00 PM EDTAppointment [facility] CT Imaging [address] [place] [address] NameTypePriorityAssociated DiagnosesOrder ScheduleCT chest wo IV contrastImaging Routine Hemoptysis Expected: 10/20/2025, Expires: 07/22/2026NamePriorityAssociated Diagnoses Date/TimeENDARTERECTOMY, FEMORAL Peripheral arterial occlusive disease Encounter for pre-operative examination 08/23/2025 1:30 PM ESTdocumented as of this encounter Goals GoalPatient Goal TypeAssociated ProblemsRecent ProgressPatient-Stated?Author Blood Pressure < 140/90 Blood Fnmphrdn242/68(07/22/2025 2:32 PM EST)Cy Child, JOHANAdocumented as of this encounter Visit Diagnoses Diagnosis Encounter for pre-operative examination- Primary Peripheral arterial occlusive disease Unspecified peripheral vascular disease Hemoptysis- Primary Bleeding from the nose Epistaxis S/P femoropopliteal bypass surgery Coronary artery disease involving coronary bypass graft of [place] heart without angina pectoris H/O: lung cancer Personal history of malignant neoplasm of bronchus and lung Peripheral arterial occlusive disease Unspecified peripheral vascular disease Encounter for pre-operative examination documented in this encounter Care Teams Team MemberRelationshipSpecialtyStart DateEnd Date Susan Watson MD [address] [place] [address] PCP - GeneralNurse Practitioner10/13/24documented as of this encounter
--- OUTSIDE RECORDS SUMMARY | 2025-07-26 11:59 | XMS_ITS | Continuity of Care Document ---
Author Organization [facility] Address [address] [place] [address] Phone Care Team Providers Care Security Strategist Name Role Phone Susan Watson ACADEMIC COUNSELOR-C Primary Care Provider [phone] Provider, Outside Attending Provider Unavailable Susan Watson NP-C Attending Provider Niko Tobar MD Attending Provider Care Teams Patient Care Team Team Status: Active Member Role/Relationship Status Dates Susan Watson NP-C Primary Care Provider Active Visit Care Team Team Status: Active Member Role/Relationship Status Dates Susan Watson ACADEMIC COUNSELOR-C Primary Care Provider Active Start: May 04, 2025 Outside ProviderAttending ProviderActiveStart: May 04, 2025 Visit Care Team Team Status: Inactive Member Role/Relationship Status Dates Susan Watson ACADEMIC COUNSELOR-C Primary Care Provider Active Start: July 12, 2025 End: July 12, 2025Susan Watson ACADEMIC COUNSELOR-CAttending ProviderActiveStart: July 12, 2025 End: July 12, 2025 Visit Care Team Team Status: Active Member Role/Relationship Status Dates Susan Watson ACADEMIC COUNSELOR-C Primary Care Provider Active Start: July 13, 2025 Niko Tobar MDAttzaki ProviderActiveStart: July 13, 2025 Visit Care Team Team Status: Active Member Role/Relationship Status Dates Susan Watsno ACADEMIC COUNSELOR-C Primary Care Provider Active Start: July 14, 2025 Natty An ProviderActiveStart: July 14, 2025 Patient Care Team Team Status: Inactive Member Role/Relationship Status Dates ROGE Morales Primary Care Provider Active Start: July 26, 2025 End: July 26, 2025Alvin Morales ProviderActiveStart: July 26, 2025 End: July 26, 2025 Chief Complaint and Reason for Visit Chief Complaint Admit Date GO OVER MEDS July 12, 2025 1 1:36am TBH f/u pnemonia July 26, 2025 4:03pm Reason for Visit Admit Date Anemia July 12, 2025 1 1:36am CAD (coronary artery disease) of artery bypass graft July 12, 2025 11:36am Chronic kidney disease, stage 4 (severe) July 12, 2025 11:36am COPD (chronic obstructive pulmonary dise ase) July 12, 2025 11:36am Dyspnea July 12, 2025 1 1:36am EDITH (generalized anxiety disorder) Dece mary 2024 11:36am GERD without esophagitis July 12 11:36am GI bleeding July 12, 2025 1 1:36am Hypertensive chronic kidney disease with stage 1 through stage 4 chronic ki July 12, 2025 11:36am MCI (mild cognitive impairment) July 12, 2025 11:36am PVD (peripheral vascular disease) Dece er 2024 11:36am Anemia July 26, 2025 4:03pm Chronic kidney disease, stage 4 (severe) July 26, 2025 4:03pm COPD (chronic obstructive pulmonary dise ase) July 26, 2025 4:03pm Dyspnea July 26, 2025 4:03pm GI bleeding July 26, 2025 4:03pm History of lung cancer July 26 4:03pm Hypertensive chronic kidney disease with stage 1 through stage 4 chronic ki July 26, 2025 4:03pm Microscopic hematuria July 26 4:03pm PVD (peripheral vascular disease) [facility] er 2024 4:03pm Allergies, Adverse Reactions, Alerts Allergen Type Severity [...] List clean-up per request of Phys. EHR CmteHyperlipemiaMarch 2023 2:35pmUnknownActive Mixed hyperlipidemiaOctober 2024 4:36pmUnknownActiveMicroscopic hematuria July 26, 2025 8:20amUnknownActiveChronic diastolic heart failureOctober 2024 4:32pmUnknownActiveCAD (coronary artery disease) of artery bypass graftMarch 2023 2:30pmUnknownActiveFunctional gait abnormalityOctober 2024 4:35pmUnknownActiveCervical spondylosisOctober 2024 4:32pmUnknown ActiveMCI (mild cognitive impairment)May 25, 2025 4:35pmUnknownActivePVD (peripheral vascular disease)October 22, 2019 2:05pmUnknownActiveProblem List clean-up per request of Phys. EHR CmteGERD without esophagitisOctober 2024 4:35pmUnknownActiveCOPD (chronic obstructive pulmonary disease)May 25, 2025 4:33pmUnknownActiveNeck painOctober 2024 4:36pmUnknownActiveTraumatic complete tear of left rotator cuffOctober 2024 4:37pmUnknownActive HyperkalemiaMarch 2023 2:30pmUnknownActiveInactive/Resolved Problems Problem Diagnosis/Recorded Date Onset [...] 43 MG PO Daily June 23, 2025 12:57pmNovember 2024 12:58pmMixed hyperlipidemia Mixed hyperlipidemia hyperlipidemiaFenofibrate Micronized 43 mg bawinizStdvgr13RTDMShtmg200Swtflkik 12th, 2025 12:57pmMixed hyperlipidemia Mixed hyperlipidemia hyperlipidemiaUnknownMultivitamin YegbgmQcdjyh5QKYCHYfrzeXidgcwhx 2020 12:00amUnknownAlbuterol Sulfate 90 mcg/actuation HFA aerosol vnlkodoFggpko46YXL NRSBQNYGFGX6I as needed for Shortness Of BreathFebruary 2020 12:00amUnknown Buspirone 15 mg usuzbvFktdzl99JNGGVvloe dailyFebruary 2020 12:00amanxiety UnknownOmega-3 Fatty Acids XdjfvisTcwcvy4809WXDMTqntkKzjgrexc 2020 12:00am UnknownFluticasone Furoate-Vilanterol (Breo Ellipta) 100-25 mcg/dose blister with frdkcpDuafnqgsekrq1FXXHCOOFYSPIJYepygHjmzhrxr 2020 12:00amMarch 2023 4:02pmshortness of breathTramadol (Ultram) 50 mg spzmeyIsixyetfevdh27RSQW Q6H as needed for ydga8285Qeirihow 2020 12:00amMarch 2023 4:00pm Ventral hernia Ventral hernia without obstruction or gangrene1/2 - 1 tab po q 6 hours prn pain Atorvastatin 80 mg KskbqqIsogpk39WWDGNpwaaChujm 2019 11:00pmhyperlipidemia UnknownMetoprolol Succinate 50 mg Tablet Extended Release 24 MdMpftusjlfauz49FU PODailyMselect [facility] 2019 11:00pm[facility] 20[facility] 3:59pmSertraline 100 mg Tablet Ntjlmowppruc782ZWRKQhzccEhtmo 2019 11:00pm[facility] 2023 4:02pmdepression Olanzapine 5 mg OlkezeYdzziyizytib7FHFBBmjeb at bedtimeDel[facility] 2019 11:00pm October 15, 2023 4:01pmdepressionClopidogrel 75 mg TchgnjXkpeymftcyyd31RHOKZihsk October 21, 2019 11:00pmAugust 2023 12:03pmanticoagulationAmlodipine 5 mg ThkefnXfxtzlaghwnf1GXTKDlmbtMehtw 2019 11:00pm[facility] 2023 4:03pmhtn Aspirin 81 mg Tablet,Delayed Release (Dr/Ec)Rehqvt09KYZUDkrdpGijxn 2019 11:00pmMI preventionUnknownBupropion Hcl 100 mg Tablet Sustained-Release 12 Hr Whpanpnpadqb175HMLWVbqvbRldwe 2019 11:pm[facility] 2023 3:57pmdepression Isosorbide Mononitrate 60 mg Tablet Extended Release 24 FyDviwbl48HYEGPqotmKbsqh 2019 11:00pmUnknownFamotidine 20 mg VncafuZcvmomhzxifs57XOVOGaskl at bedtime as needed for Gastric RefluxMarch 2019 11:00pmFebruary 2020 3:47pmTrazodone 100 mg VeggniTsymuijvlzjw793HLHLJrabo at bedtimeMarch 2019 11:00pmMarch 2023 10:36amNitroglycerin 0.4 mg Tablet, SublingualActive0.4 MGSUBLINGUALevery 5 to 15 minutes as needed for Chest PainMarch 2019 11:00pmUnknownBuspirone 15 mg RwifhuHwyitixhumuv06NFTWIqdrk dailyMar 2019 11:00pmFebruary 2020 3:49pmdepressionBupropion Hcl 200 mg Tablet Sustained-Release 12 ZjGmbkxfpqaacy883ODHHKcwaqOokeg 2019 11:00pmMarch 2023 3:57pmdepressionFenofibrate Micronized 43 mg HoyoawqDqpipewkanbv85KVDE Twice dailyMar 2019 11:00pmNovember 2024 12:57pmhyperlipidemia Amlodipine 5 mg obuvgrJqtxlrkzsxvc3OKMDPmsyw dailyDel[facility] Hospital 2023 3:56pmDecember 2024 12:07pmhtnAmoxicillin-Pot Clavulanate 875-125 mg tabletDiscontinued1 TABPOTwice gvqjt961Uaasym 2022 11:00pmMarch 2023 3:56pmFamotidine 20 mg znhrpyCselvp93RVAALnyac as neededDelaware County Hospital 2023 12:00amFreeTextSig: TAKE 1 TABLET BY MOUTH EVERY DAY AT BEDTIME NEEDED; Note: Source Status: Unknown; Re fills: 1; Qty: 90 delayed release tablet; Provider: Mabel Estradaupropion Hcl 300 mg tablet extended release 24 kcKjornr008BIVGQoahhWvotz 2023 12:00amFreeTextSi tablet in the morning Orally Once a day; Note: Source Status: Unknown; Refills: 0; Provider: Genesis MccauleynNitroglycerin 0.4 mg tablet, gpnpjphsbcTagbkqsrqlvx7ANHQNBGCRGQKEUDNN 5 MINUTESDelaware County Hospital 2023 12:00amMarch 2023 4:14pmFreeTextSi Sublingual Every 5min x3; Note: Source Status: UnknownPRN; Provider: Guy MelissaSertraline 100 mg tablet Rwyfhvqqcouh264XBSFHtnwrOxnnp 2023 12:00amOctober 2024 6:51am FreeTextSi.5 tablet Orally Once a day; Note: Source Status: Unknown; Refills: 0; Provider: Genesis WilkinsamOlanzapine 7.5 mg tabletDiscontinued7.5MGPODaily October 15, 2023 12:00amMarch 2024 3:01pmFreeTextSi tablet Orally Once a day; Note: Source Status: Unknown; Refills: 0; Provider: Genesis Guzman Upatepwtpep-Pdsiodltz-Ptksmjwu (Trelegy Ellipta) 100-62.5-25 mcg blister with tunhbtNokklb8LRUCGKDFLTAFINcenvUlbwz 2023 12:00amUnknownMetoprolol Succinate 50 mg tablet extended release 24 nnGqpitvrxzqug25KZVIFcmpoVqmlv 2023 12:00amOctober 2024 6:47amSertraline 100 mg sahnwlEiuuqy548IIFTIwkro May 28, 2025 6:48amUnknownClopidogrel 75 mg vrkvzjCnzxdd30DKJCUubcyAskwtde 2024 11:00pmUnknownMetoprolol Tartrate 50 mg stnbwrIsivll15PCLGEyfsf daily May 27, 2025 11:00pmUnknownTrazodone 100 mg gsjuotItqxnx631KQADTjyvr at [facility]timeVal[facility] 2023 11:00pmUnknownFerrous Sulfate 325 mg (65 mg iron) astkulTkeukh974GZJRpogpc789Zmoh 2024 11:00pmUnknownOlanzapine 5 mg tablet Sgeyvu8GIQDYgumiQyep 2024 11:00pmUnknown Immunizations Immunization Event Date Not Given Reason Dose Number Frit Mixer Lot Number Reason(s) Given Vaccine Information Statement (VIS) Detail Administration Location COVID-19 [place] (Connect[employer]) October 19 COVID-19 [place] (Pfizer)November 08OVID-19 mRNA, Comirnaty (Pfizer)August 06, 2021influenza, unspecified formulationDecember 2019 influenza, unspecified formulationOctober neumococcal Conjugate Vaccine, 13 valentJanuary 2019Pneumococcal Polysacc. Vaccine, 23 valent August 03, 2020 Medical Equipment Device Date Implanted Device Details Abdominal hernia surgical me sh, composite-polymer September 30, 2020 ERMA: [id number] Issuing Agency: [facility] Device Id: [id number] Expiration Date: 2022-01-06 Lot Number: [id number] Relevant Diagnostic Tests and/or Laboratory Data Laboratory Results Test Collection Date/Time Result Date/Time Result Interpretation Reference Range Result Comment Performing Site Basophils # (Auto) May 04, 2025 2:27pm May 04, 2025 2:27pm 0.0 10 3/uL 0.0-0.1Anion GapSeptember 2024 2:27pmSeptember 2024 2:27pm11.5 Activated Partial Thromboplast TimeSeptember 2024 2:27pmSeptember 2024 2:27pm26.7 sec22.3-36.2Prothromb Time International RatioSeptember 2024 2:27pmSeptember 2024 2:27pm1.08DESIRED INR:2.0-3.0 CONDITIONS NOT LISTED BELOW2.5-3.5 FOR PROSTHETIC HEART VALVE REPLACEMENT2.5-3.5 RECURRENT THROMBOSISFerritinDecember 2024 1:14pmDecember 2024 1:38ik023.0 ng/mL 26.0-388.0B-Type Natriuretic PeptideDecember 2024 1:14pmDecember 2024 1:34cx02853.0 pg/mLAbove upper panic limits<=900.0RESULTS CALLED TO Ashish ALEXANDER LevelDecember 2024 1:14pmDecember 2024 1:14pm53.0 ug/dLBelow low zlinkp36.0-175.0Lactic Acid LevelDe2024 10:30pm July 12, 2025 10:30pm0.9 mmol/L0.4-2.0Anion GapJuly 12, 2025 10:30pm July 12, 2025 10:30pm11.3Basophils # (Auto)July 12, 2025 10:30pm July 12, 2025 10:30pm0.0 10 3/uL0.0-0.1Urine Culture ReflexedDece2024 1:56amNOHepatitis A IgM AntibodyDe2024 5:25amDecemb2024 5:25amNegativeNegativeA negative anti-HAV IgM result suggests no recent orcurrent HAV infection.Cholesterol/HDL RatioJuly 13, 2025 5:25amDece2024 5:25am2.93.3 - 4.4 LOW RISK4.4 - 7.1 AVERAGE RISK7.1 - 11.0 MODERATE RISK>11.0 HIGH RISKPhosphorus LevelJuly 13, 2025 5:25amDece2024 5:25am3.8 mg/dL2.6-4.7Anion GapJuly 13, 2025 5:25amDece2024 5:25am12.2Basophils # (Auto)July 13, 2025 5:25amDece2024 5:25am 0.0 10 3/uL0.0-0.1RSV RNA Qual (PCR)(MISC)July 13, 2025 1:59pmDece2024 1:59pmNot DetectedNOT XQBSTCBKFWV-SwZ-5 Ag (CV2AG)July 13, 2025 1:59pm July 13, 2025 1:59pmNEGATIVENEGATIVEThis test has not been FDA cleared or approved, but has beenauthorized by the FDA under an Emergency Use Authorization(EUA) for use by authorized laboratories certified underCLIA that meet the requirements to perform moderate or highcomplexity testing. This test has been authorized only forthe detection of proteins from SARS-CoV-2, not for any otherviruses or pathogens. The emergency use of this test isauthorized for the duration of the declaration thatcircumstances exist justifying the authoriz ation ofemergency use of in vitro diagnostic tests for detectionand/or diagnosis of Covid-19 under section 564(b)(1) of theAct, 21 U.S.C. 360bbb-3(b)(1), unless the declaration isterminated or authorization is revoked sooner.Bedside Influenza Type A AntigenDe2024 1:59pmDecemb2024 1:59pm NegativeNegative for Flu A protein antigen. Infection due to Flu Acannot be ruled out. Flu A antigen in thesample may bebelow the detection limit of the test.D-Dimer Quantitative (PE/DVT)July 13, 2025 4:29pmDece2024 4:29pm1.12 mg/L FEUAbove upper panic limits<=0.59RESULTS CALLED TO Gerri Gaspar RNIncreases in D-Dimer concentration observed withthromboembolic eventscan be variable due to localization,size, and age of the thrombus. Therefore, a thromboemboliceventcannot be diagnosed with certainty on the basis of thereference range. D-Dimers may also be elevated for a varietyof disorders including advanced age, , coronarydisease, cancer, liver disease, infection, inflammation,hematoma, DIC, trauma, post-surgery, diabetes, thrombolyticor anticoagulant therapy, stress, and generalizedhospitalization. HematocritDece2024 5:06amDece2024 5:06am28.5 %Below low wchmil24.0-54.0Anion GapDece2024 5:06amDece2024 5:06am11.5 Albumin/Globulin RatioJuly 14, 2025 5:06amDece2024 5:06am0.7 Basophils (%) (Auto)May 04, 2025 2:27pmSeptember 2024 2:27pm0.5 % 0.2-2.0BUN/Creatinine RatioSept2024 2:27pmSept2024 2:27pm17.4Prothrombin TimeSeptember 2024 2:27pmSeptember 2024 2:27pm 11.4 sec9.0-11.6Albumin/Globulin RatioJuly 12, 2025 10:30pmDecember 2024 10:30pm0.8Basophils (%) (Auto)July 12, 2025 10:30pmDecemb2024 10:30pm0.3 %0.2-2.0Urine Other Cast2024 1:56amNONE SEEN #/LPFNONE SEENHepatitis B Surface AntigenJuly 13, 2025 5:25amDecemb2024 5:25amNegativeNegativeCholesterol LevelJuly 13, 2025 5:25amDece2024 5:31nu224 mg/dL<=200Albumin/Globulin RatioJuly 13, 2025 5:25amDece2024 5:25am0.8Basophils (%) (Auto)July 13, 2025 5:25amDecemb2024 5:25am0.2 %0.2-2.0Bedside Influenza Type B AntigenDe2024 1:59pm July 13, 2025 1:59pmNegativeNegative for Flu B protein antigen. Infection due to Flu Bcannot be ruled out. Flu B antigen in thesample may bebelow the detection limit of the test.HemoglobinDece2024 5:06amDece2024 5:06am9.1 g/dLBelow low sdnotd73.0-18.0BUN/Creatinine RatioJuly 14, 2025 5:06amDece2024 5:06am14.8AlbuminJuly 14, 2025 5:06amDece2024 5:06am2.7 g/dLBelow low normal3.4-5.0Eosinophils # (Auto)May 04, 2025 2:27pmSeptember 2024 2:27pm0.2 10 3/uL0.0-0.7Blood Urea NitrogenSeptember 2024 2:27pmSeptember 2024 2:27pm41.0 mg/dLAbove high normal7.0-18.0AlbuminDecemb2024 10:30pmDecember 2024 10:30pm 2.9 g/dLBelow low normal3.4-5.0Eosinophils # (Auto)July 12, 2025 10:30pm July 12, 2025 10:30pm0.3 10 3/uL0.0-0.7Urine Other Crystalsce2024 1:56amNone Seen #/HPFNone SeenHepatitis B Core IgM AntibodyJuly 13, 2025 5:25amDecember 2024 5:25amNegativeNegativeHDL Cholesterolce2024 5:25amDecemb2024 5:25am45 mg/dL40-60> or =60 mg/dl - LOW CARDIOVASCULAR RISK<40 mg/dl - HIGH CARDIOVASCULAR RISKAlbuminJuly 13, 2025 5:25amDecember 2024 5:25am3.1 g/dLBelow low normal3.4-5.0Eosinophils # (Auto)July 13, 2025 5:25amDecember 2024 5:25am0.2 10 3/uL0.0-0.7Mean Corpuscular Hemoglobince2024 5:06amDece2024 5:06am29.3 pg 25.9-34.0Blood Urea NitrogenJuly 14, 2025 5:06amDecemb2024 5:06am 28.0 mg/dLAbove high normal7.0-18.0Alkaline PhosphataseJuly 14, 2025 5:06am July 14, 2025 5:25kq679 U/LAbove high -152Tfkgklvyfuj (%) (Auto) May 04, 2025 2:27pmSeptember 2024 2:27pm3.4 %0.9-7.0Calcium Level May 04, 2025 2:27pmSeptember 2024 2:27pm9.0 mg/dL8.5-10.1Alkaline PhosphataseJuly 12, 2025 10:30pmDecember 2024 10:64ax339 U/LAbove high aohfvm22-889Qniufamnsmw (%) (Auto)July 12, 2025 10:30pmDecember 2024 10:30pm2.8 %0.9-7.0Urine BacteriaJuly 13, 2025 1:56amNONE SEEN #/HPFNONE SEENHepatitis C AntibodyJuly 13, 2025 5:25amDecember 2024 5:25amNon ReactiveNon ReactiveLDL Cholesterol, CalculatedJuly 13, 2025 5:25amDecemb2024 5:25am60.2 mg/dL<100 mg/dl WEGBDSY620-463 mg/dl NEAR OR ABOVE EKVARDM770-100 mg/dl BORDERLINE UPCV001-947 mg/dl HIGH>190 mg/dl VERY HIGH Alkaline PhosphataseJuly 13, 2025 5:25amDecemb2024 5:52ig932 U/L Above high jampfy97-715Akummhocxoz (%) (Auto)July 13, 2025 5:25amDecemb2024 5:25am1.8 %0.9-7.0Mean Corpuscular Hemoglobin ConcentJuly 14, 2025 5:06amDece2024 5:06am31.9 g/dL29.9-35.2Calcium LevelDe2024 5:06amDecember 2024 5:06am9.3 mg/dL8.5-10.1Alanine Aminotransferase (ALT/SGPT)July 14, 2025 5:06amDecemb2024 5:06am72 U/LAbove high qwnmde07-68YsiqhypfffPpmjktdwa 2024 2:27pmSeptember 2024 2:27pm33.7 %Below low ixwnwx54.0-54.0Chloride LevelSeptember 2024 2:27pmSeptember 2024 2:48ht540 mmol/H29-037Plgilra Aminotransferase (ALT/SGPT)July 12, 2025 10:30pmDecember 2024 10:30pm95 U/LAbove high lcleth54-86 HematocritDecemb2024 10:30pmDecember 2024 10:30pm28.4 %Below low bcfifm72.0-54.0Urine BilirubinDece2024 1:56amNEGATIVENEGATIVEHepatitis B Interpretation.July 13, 2025 5:25amDecember 2024 5:25amComment.Not infected with HCV unless early or acute infection issuspected (which may be delayed in an immunocompromisedindividual), or other evidence exists to indicate HCVinfection.Performed at: [address] [id number] Director: Price Kendall PhD, Phone: [phone] LevelDece2024 5:25amDecemb2024 5:40bm609 mg/dL<=150Alanine Aminotransferase (ALT/SGPT)July 13, 2025 5:25amDecember 2024 5:25am93 U/LAbove high tffgdu95-95HnrhhncnmnMmzlehjg 2nd, 2025 5:25amDecemb2024 5:25am30.1 %Below low ejvway39.0-54.0Mean Corpuscular Volumece2024 5:06amDecemb2024 5:06am91.6 fL80.0-94.0Chloride LevelDece2024 5:06amDecember 2024 5:74gp419 mmol/N97-444Yozoqecjn Amino Transf (AST/SGOT) July 14, 2025 5:06amDecemb2024 5:06am50 U/LAbove high sqixww55-52 HemoglobinSeptember 2024 2:27pmSeptember 2024 2:27pm11.0 g/dLBelow low hdfxyb41.0-18.0Carbon Dioxide LevelSeptember 2024 2:27pmSeptember 2024 2:27pm23.5 mmol/L21.0-32.0Aspartate Amino Transf (AST/SGOT)July 12, 2025 10:30pmDecember 2024 10:30pm73 U/LAbove high orzwii87-97 HemoglobinDecember 2024 10:30pmDecember 2024 10:30pm9.1 g/dLBelow low jmpqsi86.0-18.0Urine Occult BloodDecember 2024 1:56amLARGEAbnormal (applies to non-numeric results)NEGATIVEVLDL CholesterolDece2024 5:25amDecember 2024 5:25am23.8 mg/dLAspartate Amino Transf (AST/SGOT)July 13, 2025 5:25amDecember 2024 5:25am67 U/LAbove high dtuhaj80-25NdeigzolfeLzukrois 2nd, 2025 5:25amDecember 2024 5:25am9.6 g/dLBelow low xnhleb67.0-18.0Mean Platelet Volumece2024 5:06amDecemb2024 5:06am9.1 fLBelow low normal9.5-13.5Carbon Dioxide LevelDece2024 5:06amDecember 2024 5:06am28.6 mmol/L21.0-32.0Direct BilirubinDece2024 5:06amDecember 2024 5:06am0.4 mg/dLAbove high normal0.0-0.2Immature Granulocyte # (Auto) May 04, 2025 2:27pmSeptember 2024 2:27pm0.02 10 3/uL0.00-0.03 CreatinineSeptember 2024 2:27pmSeptember 2024 2:27pm2.35 mg/dLAbove high normal0.70-1.30BUN/Creatinine RatioDece2024 10:30pmDecember 2024 10:30pm12.7Immature Granulocyte # (Auto)July 12, 2025 10:30pmDecember 2024 10:30pm0.09 10 3/uLAbove high normal0.00-0.03Urine AppearanceJuly 13, 2025 1:56amCLEARCLEARBUN/Creatinine RatioJuly 13, 2025 5:25amDecember 2024 5:25am11.5Immature Granulocyte # (Auto)July 13, 2025 5:25am July 13, 2025 5:25am0.08 10 3/uLAbove high normal0.00-0.03Platelet Count July 14, 2025 5:06amce2024 5:99sc623 10 3/sA076-682Fhiwjuhiel July 14, 2025 5:06amDecemb2024 5:06am1.89 mg/dLAbove high normal 0.70-1.30GlobulinJuly 14, 2025 5:06amDecemb2024 5:06am3.9 g/dL Immature Granulocyte % (Auto)May 04, 2025 2:27pmSept2024 2:27pm0.3 %0.0-0.5Estimated GFR ()May 04, 2025 2:27pm May 04, 2025 2:31qa28Dlftr low normal>=60 mL/min/1.73m 2Blood Urea NitrogenJuly 12, 2025 10:30pmDecemb2024 10:30pm20.0 mg/dLAbove high normal7.0-18.0Immature Granulocyte % (Auto)July 12, 2025 10:30pmDecember 2024 10:30pm1.0 %Above high normal0.0-0.5Urine ColorJuly 13, 2025 1:56amLT. YELLOWYELLOWBlood Urea Nitrogence2024 5:25amDecember 2024 5:25am20.0 mg/dLAbove high normal7.0-18.0Immature Granulocyte % (Auto) July 13, 2025 5:25amDecember 2024 5:25am0.9 %Above high normal0.0-0.5 Red Blood Countce2024 5:06amDecember 2024 5:06am3.11 10 6/uL Below low normal4.70-6.10Estimated GFR ()July 14, 2025 5:06amDecember 2024 5:93ht56Zypis low normal>=60 mL/min/1.73m 2Total Bilirubince2024 5:06amDecember 2024 5:06am0.8 mg/dL0.2-1.0 Lymphocytes # (Auto)May 04, 2025 2:27pmSeptember 2024 2:27pm1.0 10 3/uLBelow low normal1.2-3.8Estimated GFR (Non- AmericanSept2024 2:27pmSeptember 2024 2:58cg49Cyfsm low normal>=60 mL/min/1.73m 2 Calcium LevelDece2024 10:30pmDecember 2024 10:30pm9.0 mg/dL 8.5-10.1Lymphocytes # (Auto)July 12, 2025 10:30pmDecember 2024 10:30pm 0.9 10 3/uLBelow low normal1.2-3.8Urine Glucose (UA)July 13, 2025 1:56am NEGATIVE mg/dLNEGATIVECalcium LevelDece2024 5:25amDecember 2024 5:25am9.3 mg/dL8.5-10.1Lymphocytes # (Auto)July 13, 2025 5:25amDecember 2024 5:25am0.7 10 3/uLBelow low normal1.2-3.8Red Cell Distribution Width July 14, 2025 5:06amDecemb2024 5:06am15.4 %Above high normal 11.0-15.0Estimated GFR (Non- AmericanDecemb2024 5:06amDecember 2024 5:03sf24Hmwtg low normal>=60 mL/min/1.73m 2Total ProteinDece2024 5:06amDecember 2024 5:06am6.6 g/dL6.4-8.2Lymphocytes (%) (Auto) May 04, 2025 2:27pmSeptember 2024 2:27pm16.1 %Below low normal 20.5-60.0Glucose LevelSeptember 2024 2:27pmSeptember 2024 2:27pm81 mg/gH95-430Oiwvvzap LevelDece2024 10:30pmDecember 2024 10:98bg933 mmol/U21-435Cmewxyaftib (%) (Auto)July 12, 2025 10:30pmDecember 2024 10:30pm9.9 %Below low dlplae09.5-60.0Urine KetonesDece2024 1:56am NEGATIVE mg/dLNEGATIVEChloride LevelDece2024 5:25amDecember 2024 5:78wj642 mmol/V55-881Gawfuhlqqxb (%) (Auto)July 13, 2025 5:25amDecember 2024 5:25am8.7 %Below low .5-60.0Corrected White Blood Count July 14, 2025 5:06amDecemb2024 5:06am7.5 10 3/uL4.0-11.0Glucose LevelDecemb2024 5:06amDecemb2024 5:31fw706 mg/dLAbove high iuzpao84-749Rlia Corpuscular HemoglobinSeptember 2024 2:27pmSeptember 2024 2:27pm31.1 pg25.9-34.0Potassium LevelSeptember 2024 2:27pm Kendal 2024 2:27pm5.0 mmol/L3.5-5.1Carbon Dioxide LevelDecemb5 10:30pmDecember 2024 10:30pm27.9 mmol/L21.0-32.0Mean Corpuscular HemoglobinDecember 2024 10:30pmDecember 2024 10:30pm29.8 pg25.9-34.0 Urine Leukocyte Esteraseceer 2024 1:56amNEGATIVENEGATIVECarbon Dioxide LevelDecember 2024 5:25amDecember 2024 5:25am28.8 mmol/L21.0-32.0Mean Corpuscular HemoglobinDecember 2024 5:25amDecember 2024 5:25am29.4 pg 25.9-34.0Potassium LevelDecember 2024 5:06amDecember 2024 5:06am4.1 mmol/L3.5-5.1Mean Corpuscular Hemoglobin ConcentSeptember 2024 2:27pm May 04, 2025 2:27pm32.6 g/dL29.9-35.2Sodium LevelSeptember 2024 2:27pmSeptember 2024 2:74xo101 mmol/J510-921TdavgxpnkpCmetfyuu 2024 10:30pmDecember 2024 10:30pm1.58 mg/dLAbove high normal0.70-1.30Mean Corpuscular Hemoglobin Concentcember 2024 10:30pmDecember 2024 10:30pm32.0 g/dL29.9-35.2Urine MucusDecember 2024 1:56amNONE SEENNONE SEEN CreatinineDecember 2024 5:25amDecember 2024 5:25am1.74 mg/dLAbove high normal0.70-1.30Mean Corpuscular Hemoglobin ConcentDecember 2024 5:25am July 13, 2025 5:25am31.9 g/dL29.9-35.2Sodium LevelDecember 2024 5:06am July 14, 2025 5:74vd855 mmol/U417-766Tkkx Corpuscular VolumeSeptember 2024 2:27pmSeptember 2024 2:27pm95.2 fLAbove high dvjoet59.0-94.0Estimated GFR ()July 12, 2025 10:30pmDecember 2024 10:30pm53 Below low normal>=60 mL/min/1.73m 2Mean Corpuscular VolumeDece2024 10:30pmDecember 2024 10:30pm93.1 fL80.0-94.0Urine Nitritece2024 1:56amNEGATIVENEGATIVEEstimated GFR ()July 13, 2025 5:25am July 13, 2025 5:48yv51Sqwye low normal>=60 mL/min/1.73m 2Mean Corpuscular Volumece2024 5:25amDecemb2024 5:25am92.0 fL80.0-94.0 Monocytes # (Auto)May 04, 2025 2:27pmSeptember 2024 2:27pm0.5 10 3/uL0.3-0.8Estimated GFR (Non- American2024 10:30pmDecember 2024 10:23qz27Ntrsl low normal>=60 mL/min/1.73m 2Monocytes # (Auto)July 12, 2025 10:30pmDecember 2024 10:30pm0.8 10 3/uL0.3-0.8Urine pHDece2024 1:56am6.55.0-9.0Estimated GFR (Non- American2024 5:25amDecemb2024 5:68fz12Lxkbl low normal>=60 mL/min/1.73m 2Monocytes # (Auto)July 13, 2025 5:25amDecemb2024 5:25am0.7 10 3/uL0.3-0.8 Monocytes (%) (Auto)May 04, 2025 2:27pmSeptember 2024 2:27pm8.1 % 1.7-12.0GlobulinDecemb2024 10:30pmDecember 2024 10:30pm3.6 g/dL Monocytes (%) (Auto)July 12, 2025 10:30pmDecember 2024 10:30pm9.0 % 1.7-12.0Urine Proteincemb2024 1:56amNEGATIVE mg/dLNEG/TRACEGlobulin July 13, 2025 5:25amDecember 2024 5:25am3.8 g/dLMonocytes (%) (Auto) July 13, 2025 5:25amDecember 2024 5:25am8.0 %1.7-12.0Mean Platelet VolumeSeptember 2024 2:27pmSeptember 2024 2:27pm9.2 fLBelow low normal9.5-13.5Glucose Levelce2024 10:30pmDecember 2024 10:30pm 96 mg/oJ76-655Pqql Platelet VolumeDecemb2024 10:30pmDecember 2024 10:30pm9.1 fLBelow low normal9.5-13.5Urine RBCce2024 1:85qm10-79 #/HPFAbnormal (applies to non-numeric results)0-2Glucose LevelDece2024 5:25amDecember 2024 5:47bn697 mg/rI81-460Xvug Platelet Volumece2024 5:25amDecember 2024 5:25am9.1 fLBelow low normal9.5-13.5Neutrophils # (Auto)May 04, 2025 2:27pmSeptember 2024 2:27pm4.3 10 3/uL1.4-6.5 Potassium Levelce2024 10:30pmDecember 2024 10:30pm4.2 mmol/L 3.5-5.1Neutrophils # (Auto)July 12, 2025 10:30pmDecember 2024 10:30pm 7.0 10 3/uLAbove high normal1.4-6.5Urine Specific GravityJuly 13, 2025 1:56am<=1.005Abnormal (applies to non-numeric results)1.005-1.025Potassium Level July 13, 2025 5:25amDecember 2024 5:25am4.0 mmol/L3.5-5.1Neutrophils # (Auto)July 13, 2025 5:25amDecember 2024 5:25am6.8 10 3/uLAbove high normal1.4-6.5Neutrophils (%) (Auto)May 04, 2025 2:27pmSeptember 2024 2:27pm71.6 %43.0-75.0Sodium LevelJuly 12, 2025 10:30pmDecember 2024 10:30ow576 mmol/C955-805Xaahwabndtt (%) (Auto)July 12, 2025 10:30pm July 12, 2025 10:30pm77.0 %Above high .0-75.0Urine Squamous Epithelial CellsJuly 13, 2025 1:56amNONE SEEN #/LPFNONE/RARESodium Level July 13, 2025 5:25amDecember 2024 5:73qn814 mmol/S341-974Dwyryynsgtd (%) (Auto)July 13, 2025 5:25amDecember 2024 5:25am80.4 %Above high .0-75.0Platelet CountSeptember 2024 2:27pmSeptember 2024 2:74st969 10 3/uLBelow low tyqqjf082-598Fjvle BilirubinJuly 12, 2025 10:30pmDecember 2024 10:30pm0.9 mg/dL0.2-1.0Platelet CountJuly 12, 2025 10:30pmDe2024 10:75pq704 10 3/wB027-906Kqpct Urobilinogen July 13, 2025 1:56am0.2 EU/dL0.2-1.0Total BilirubinDe2024 5:25amDecemb2024 5:25am0.9 mg/dL0.2-1.0Platelet Countce2024 5:25amDecemb2024 5:06fz390 10 3/dQ786-302Vzl Blood CountSeptember 2024 2:27pmSept2024 2:27pm3.54 10 6/uLBelow low normal4.70-6.10Total ProteinJuly 12, 2025 10:30pmDecemb2024 10:30pm6.5 g/dL6.4-8.2Red Blood CountJuly 12, 2025 10:30pmDece2024 10:30pm3.05 10 6/uLBelow low normal4.70-6.10Urine WBCce2024 1:32ju5-4 #/HPFAbnormal (applies to non-numeric results)NONE SEENTotal ProteinJuly 13, 2025 5:25amDece2024 5:25am6.9 g/dL6.4-8.2Red Blood Countce2024 5:25amDece2024 5:25am3.27 10 6/uLBelow low normal4.70-6.10Red Cell Distribution Width May 04, 2025 2:27pmSept2024 2:27pm14.6 %11.0-15.0Red Cell Distribution WidthJuly 12, 2025 10:30pmDecemb2024 10:30pm15.8 % Above high .0-15.0Red Cell Distribution Widthce2024 5:25am July 13, 2025 5:25am15.8 %Above high sypjph61.0-15.0Corrected White Blood CountSeptember 2024 2:27pmSeptember 2024 2:27pm6.0 10 3/uL4.0-11.0 Corrected White Blood Countcember 2024 10:30pmDecember 2024 10:30pm 9.1 10 3/uL4.0-11.0Corrected White Blood CountDece2024 5:25amDecember 2024 5:25am8.5 10 3/uL4.0-11.0 Vital Signs Vital Reading Result Reference Range Collection Date/Time Height 65 [in_i] July 12, 2025 11:25wzGdwxzk99.59 kgDecember 2024 11:39amBody Qonnoqrblns98.3 [degF]97.6-99.0Decemb2024 11:39amHeart Rate75 /zig31-482 July 12, 2025 11:39amRespiratory rate16 /wwo49-35MbttfkrfJuly 12, 2025 11:39am Oxygen saturation by Pulse ljfezrmj69 %95-100July 12, 2025 11:39amBP Zvwtaavi241 mm[Hg]100-140Decemb2024 11:39amBP Hlhvpczss14 mm[Hg]60-100 July 12, 2025 11:39amBMI (Body Mass Index)27.0 kg/n7Dqevazkw2024 11:92viZxindn89 [in_i]July 26, 2025 4:48maFhxpwz21.83 kgcember 2024 4:12pmBody Fmdenzuixxb09.1 [degF]97.6-99.0December 2024 4:12pmHeart Rate68 /zfa20-635Xrojydxb 15th, 2025 4:12pmRespiratory rate20 /aaj57-75Xentdetd 2024 4:12pmOxygen saturation by Pulse netsttln44 %95-100December 2024 4:12pmBP Qfuuwzpl033 mm[Hg]100-140December 2024 4:12pmBP Ywyadflia66 mm[Hg]60-100December 2024 4:12pmBMI (Body Mass Index)26.3 kg/i3Jimhraha 2024 4:12pm Advance Directives Advance Directive Response Recorded Date/ Time Advance Directives No July 5:23pm Insurance Providers Guarantor You Garcia Jr Address [address] [address]Cmywrlj Info.Home Phone: Coverage Status Update:2024 Payer Group Member ID Coverage Type Subscriber Relationship to Subscriber Effective Date Expiration Date MMO Id: [id number] A Bernal Id: [id number] [address] [address] Home Phone: Anthem BC/BS Id: [id number] A Bernal Id: [id number] [address] [address] Home Phone: Medicare [id number] Garcia Jr Id: [id number] [address] [address] Home Phone: Email: .[facility] [id number] Bernal , Jr Id: [id number] [address] [address] Home Phone: Email: .[facility]PointSelfMPark[facility] PFFS [id number] Garcia Jr Id: [id number] [address] [address] Home Phone: Email: .MilePointSel Encounters Encounter Location(s) Arrival/Admit Date Discharge/Departure Date Discharge/Departure Disposition Provider(s) Non-patient / Non-visit -[facility] Lizzie Go May 04, 2025 3:27pm Outside ProviderDeparted Physician/Provider Office Visit-[facility] ClydeD2024 11:36amDecember 2024 12:21pmDischarged to home care or self care (routine discharge)Susan Watson NP-CNon-patient / Non-visit- [facility] Professional CoDecember 2024 1:56amOfelia An- patient / Tsx-nwjzu-Pfxy[facility] [place] Professional CoDecembnicanor 2024 5:06amSHEYLA Aneparted Physician/Provider Office Visit-[facility] [place] July 26, 2025 4:03pmDece2024 4:58pmDischarged to home care or self care (routine discharge)ROGE Morales Recent Diagnosis Onset Date Admit Date Anemia Unknown July 12 11:36am CAD (coronary artery disease ) of artery bypass graft Unknown July 12, 2025 11:36am Chronic kidney disease, stage 4 (severe) Unknown July 12, 2025 11:36am COPD (chronic obstructive pulmonary disease) Unk nown July 12, 2025 11:36am Dyspnea Unknown July 12 11:36am EDITH (generalized anxiety disorder) Unknown July 12, 2025 11:36am GERD without esophagitis Unknown Decemb r 2024 11:36am GI bleeding Unknown July 12 11:36am Hypertensive chronic kidney disease with stage 1 through stage 4 chronic ki Unknown July 12, 2025 11:36a m MCI (mild cognitive impairment) Unknown July 12, 2025 11:36am PVD (peripheral vascular disease) Unknown July 12, 2025 11:36am Anemia Unknown July 26, 2 025 4:03pm Chronic kidney disease, stage 4 (severe) Unknown July 26, 2025 4:03pm COPD (chronic obstructive pulmonary disease) Unk nown July 26, 2025 4:03pm Dyspnea Unknown July 26, 2 025 4:03pm GI bleeding Unknown July 26, 025 4:03pm History of lung cancer Unknown July 26, 2025 4:03pm Hypertensive chronic kidney disease with stage 1 through stage 4 chronic ki Unknown July 26, 2025 4:03p m Microscopic hematuria Unknown July 122024 4:03pm PVD (peripheral vascular disease) Unknown July 26, 2025 4:03pm Assessments Diagnosis Onset Date Resolution Status Admit Date Anemia acuteJuly 12, 2025 11:36amCAD (coronary artery disease) of artery bypass graftacuteJuly 12, 2025 11:36amChronic kidney disease, stage 4 (severe) acuteJuly 12, 2025 11:36amCOPD (chronic obstructive pulmonary disease)acute July 12, 2025 11:36amDyspneaacutece2024 11:36amGAD (generalized anxiety disorder)acuteJuly 12, 2025 11:36amGERD without esophagitisacute July 12, 2025 11:36amGI bleedingacuteJuly 12, 2025 11:36amHypertensive chronic kidney disease with stage 1 through stage 4 chronic kiacuteJuly 12, 2025 11:36amMCI (mild cognitive impairment)acuteJuly 12, 2025 11:36am PVD (peripheral vascular disease)acuteJuly 12, 2025 11:36amAnemiaacute July 26, 2025 4:03pmChronic kidney disease, stage 4 (severe)acuteJuly 26, 2025 4:03pmCOPD (chronic obstructive pulmonary disease)acuteJuly 26, 2025 4:03pmDyspneaacuteDece2024 4:03pmGI bleedingacuteJuly 26, 2025 4:03pmHistory of lung canceracuteJuly 26, 2025 4:03pmHypertensive chronic kidney disease with stage 1 through stage 4 chronic kiacutece2024 4:03pmMicroscopic hematuriaacuteJuly 26, 2025 4:03pmPVD (peripheral vascular disease)acuteJuly 26, 2025 4:03pm Plan of Treatment Author [facility] Watson [facility]July 12, 2025 2:06pmrecommend diet low in fat, and processed foods sees cardiology: current meds: asa, statin, plavix, imdur, b kelsy follows with nephrology regularly reviewed their notes [...] HOB if possible current meds: prn famotidine no significant changes in sxs, and cont meds Please check blood pressure daily and record DASH diet Limit caffeine Take medication as directed Contact office if chest pain, pressures, dizziness, shortness of breath, swelling in the legs Recommend slow position changes if you develop dizziness with position changes current meds: amlodipine, b kelsy, imdur may be related to his recent anemia will recheck blood count, add BNP, and check CXR no acute distress noted reviewed notes from [facility] admission will recheck CBC no current reports of active bright blood in stools reviewed notes, is scheduled in August for repair LLE 07/05/25 10.1 will recheck today Author Susan Watson [facility] 2024 8:21amPlease check blood pressure daily and record DASH diet Limit caffeine Take medication as directed Contact office if chest pain, pressures, dizziness, shortness of breath, swelling in the legs Recommend slow position changes if you develop dizziness with position changes current meds: amlodipine, b kelsy, imdur may be related to his recent anemia will recheck blood count, add BNP, and check CXR no acute distress noted reviewed notes from [facility] admit no current reports of active bright blood in stools reviewed notes, is scheduled in August for repair LLE follows with nephrology regularly reviewed their notes lab: per their protocol current meds: trelegy, and prn albuterol recommend keeping UTD on immunizations: flu, covid, pneuomonia, RSV hx of lung cancer recetn CT scan showed pleural effusion as well as lymphadenopathy recommend fu scan in 2 months noted during hospital stay will recheck in a few weeks with culture Future Tests Future scheduled test information is unavailable Pending Tests Test Name Ordered Date Scheduled Date XR chest 2V* July 12, 2025 12:18pm Future Visits Future appointment information is unavailable Future Procedures Procedure Name Ordered Date Scheduled Date Ferritin July 12, 2025 12:19pm Dipstick and MicroscopicDeceer 2024 8:21amBasic Metabolic PanelDeceer 2024 8:21amUrine CultureDeceer 2024 8:21am Future Medications Future medication information is unavailable Patient Instructions Patient instructions are unavailable
--- OUTSIDE RECORDS SUMMARY | 2025-07-30 15:46 | XMS_ITS | Encounter Summary ---
Author Organization [facility] Address [address] [place] [address] Care Team Providers Care Apprentice Embalmer Name Role Phone Susan Watson MD Primary Care Provider Encounter Details DateTypeDepartmentCare Team (Latest Contact Info)Lcloyldngrw09/09/2025bstract [facility] [address] [place] [address] Mala Cooper NP [address] [place] [address] [place] [address] Social History Tobacco UseTypesPacks/DayYears UsedDateSmoking Tobacco: FormerCigarettes Smokeless Tobacco: CurrentChewAlcohol UseStandard Drinks/WeekCommentsNot Currently0 (1 standard drink = 0.6 oz pure alcohol)PHQ-2AnswerDate Recorded Patient Health Questionnaire-2 Jhrxf76208/14/2024Humiliation, Afraid, Rape, and Kick questionnaireAnswerDate RecordedWithin the [...] week06/15/2025How often do you attend restorationist or buddhism services?Never06/15/2025Do you belong to any clubs or organizations such as restorationist groups, unions, fraternal or athletic groups, or school groups?No06/15/2025How often do you attend meetings of the clubs or organizations you belong to?Never06/15/2025re you , , , , never , or living with a partner?Gpezmxohw11/04/2025UDIT-C AnswerDate RecordedQ1: How often do you have [...] medical care, and heating?Not hard at all06/29/2025 [facility] [place] of Occupational Health - Occupational Stress Questionnaire AnswerDate RecordedDo you feel stress - tense, restless, nervous, or anxious, or unable to sleep at night because yourmind is troubled all the time - these days? Only a ntnded0806/15/2025HC UtilitiesAnswerDate RecordedIn the past 12 months has the [employer], gas, oil, or water [employer] threatened to shut off services in your [...] Assigned at BirthMale 04/08/2025 7:15 AM EDTLegal JarWuse4902/07/2022 10:15 PM EDTGender IdentityMale 04/08/2025 7:15 AM EDTSexual OrientationHeterosexual or Mjphiwmo54/28/2025 7:15 AM EDTdocumented as of this encounter Plan of Treatment DateTypeDepartmentCare Team (Latest Contact Info)Trokvmmbfdh26/12/2026 1:30 PM ESTHospital Encounter [facility] Main Operating Room [address] [place] [address] Chris Andre MD [address] [place] [address] 08/23/2025 1:30 PM EST - 08/23/2025 5:00 PM ESTSurgery [facility] Main Operating Room [address] [place] [address] Chris Andre MD [address] [place] [phone] ENDARTERECTOMY, FEMORAL WITH POSSIBLE FEM TO POP INJTIC1409/21/2025 11:00 AM EST Follow-Up [facility] Nephrology [address] [facility] [place] [address] Batsheva Beckwith MD [address] [facility] [address] [facility] [place] [address] 10/21/2025 1:00 PM EDTAppointment [facility] CT Imaging [address] [place] [address] NamePriorityAssociated DiagnosesDate/TimeENDARTERECTOMY, FEMORAL Peripheral arterial occlusive disease Encounter for pre-operative examination 08/23/2025 1:30 PM ESTdocumented as of this encounter Goals GoalPatient Goal TypeAssociated ProblemsRecent ProgressPatient-Stated?Author Blood Pressure < 140/90 Blood Qxcnkiiu062/68(07/22/2025 2:32 PM EST)Cy Child, JOHANAdocumented as of this encounter Visit Diagnoses Not on filedocumented in this encounter Care Teams Team MemberRelationshipSpecialtyStart DateEnd Date Susan Watson MD [address] [place] [address] PCP - GeneralNurse Practitioner10/13/24documented as of this encounter
--- OUTSIDE RECORDS SUMMARY | 2025-07-30 15:46 | XMS_ITS | Encounter Summary ---
Author Organization [facility] Address [address] [place] [address] Care Team Providers Care Information Services Consultant Name Role Phone Susan Watson MD Primary Care Provider [phone] Encounter Details DateTypeDepartmentCare Team (Latest Contact Info)Nrzwsugtody76/15/2025Orders Only [facility] [address] [place] [address] David Reid MD [address] [place] [address] [place] [address] Social History Tobacco UseTypesPacks/DayYears UsedDateSmoking Tobacco: FormerCigarettes2.525 1968 - 1993Smokeless Tobacco: CurrentChewAlcohol UseStandard Drinks/WeekComments Not Currently0 (1 standard drink = 0.6 oz pure alcohol)PHQ-2AnswerDate Recorded Patient Health Questionnaire-2 Bbtlk98708/14/2024Humiliation, Afraid, Rape, and Kick questionnaireAnswerDate RecordedWithin the last year, have you been afraid of your partner or ex-partner?No06/29/2025Emotionally AbusedNot on file 06/29/2025Physically AbusedNot on file06/29/2025Sexually AbusedNot on file 06/29/2025Social Connection and Isolation PanelAnswerDate RecordedIn a typical week, how many times do you talk on the phone with family, friends, or neighbors?More than three times a week11/04/2025How often do you get together with friends or relatives?More than three times a week06/15/2025How often do you attend yazidi or sikh services?Never06/15/2025Do you belong to any clubs or organizations such as yazidi groups, unions, fraternal or athletic groups, or school groups?No06/15/2025How often do you attend meetings of the clubs or organizations you belong to?Never06/15/2025re you , , , , never , or living with a partner?Wuxiebpas87/04/2025UDIT-C AnswerDate RecordedQ1: How often do you have [...] medical care, and heating?Not hard at all06/29/2025 [facility] [place] of Occupational Health - Occupational Stress Questionnaire AnswerDate RecordedDo you feel stress - tense, restless, nervous, or anxious, or unable to sleep at night because yourmind is troubled all the time - these days? Only a pxqgul5206/15/2025HC UtilitiesAnswerDate RecordedIn the past 12 months has the [employer], gas, oil, or water [employer] threatened to shut off services in your [...] Assigned at BirthMale 04/08/2025 7:15 AM EDTLegal FsrVwog4202/07/2022 10:15 PM EDTGender IdentityMale 04/08/2025 7:15 AM EDTSexual OrientationHeterosexual or Byiatdlt30/28/2025 7:15 AM EDTdocumented as of this encounter Plan of Treatment DateTypeDepartmentCare Team (Latest Contact Info)Hefycpvebyk36/12/2026 1:30 PM ESTHospital Encounter [facility] Main Operating Room [address] [place] [address] Chris Andre MD [address] [place] [address] 08/23/2025 1:30 PM EST - 08/23/2025 5:00 PM ESTSurgery [facility] Main Operating Room [address] [place] [address] Chris Andre MD [address] [place] [phone] 199- ENDARTERECTOMY, FEMORAL WITH POSSIBLE FEM TO POP QVLCKC2109/21/2025 11:00 AM EST Follow-Up [facility] Nephrology [address] [facility] [place] [address] Batsheva Beckwith MD [address] [facility] [address] [facility] [place] [address] 10/21/2025 1:00 PM EDTAppointment [facility] CT Imaging [address] [place] [address] NamePriorityAssociated DiagnosesDate/TimeENDARTERECTOMY, FEMORAL Peripheral arterial occlusive disease Encounter for pre-operative examination 08/23/2025 1:30 PM ESTdocumented as of this encounter Goals GoalPatient Goal TypeAssociated ProblemsRecent ProgressPatient-Stated?Author Blood Pressure < 140/90 Blood Whwelqgn470/68(07/22/2025 2:32 PM EST)Cy Child, RNdocumented as of this encounter Visit Diagnoses Not on filedocumented in this encounter Care Teams Team MemberRelationshipSpecialtyStart DateEnd Date Susan Watson MD [address] [place] [address] PCP - GeneralNurse Practitioner10/13/24documented as of this encounter
--- OUTSIDE RECORDS SUMMARY | 2025-07-30 15:46 | XMS_ITS | Encounter Summary ---
Author Organization [facility] Address [address] [place] [address] Care Team Providers Care Product Engineering Manager Name Role Phone Susan Watson MD Primary Care Provider [phone] Encounter Details DateTypeDepartmentCare Team (Latest Contact Info)Linwejtsfra57/18/2025Telephone [address] [place] [phone] Adrianne Reynolds MA Social History Tobacco UseTypesPacks/DayYears UsedDateSmoking Tobacco: FormerCigarettes2.525 1968 - 1993Smokeless Tobacco: CurrentChewAlcohol UseStandard Drinks/WeekComments Not Currently0 (1 standard drink = 0.6 oz pure alcohol)PHQ-2AnswerDate Recorded Patient Health Questionnaire-2 Kxmmm72608/14/2024Humiliation, Afraid, Rape, and Kick questionnaireAnswerDate RecordedWithin the [...] times a week06/15/2025How often do you attend tenriism or christian services?Never06/15/2025Do you belong to any clubs or organizations such as tenriism groups, unions, fraternal or athletic groups, or school groups?No06/15/2025How often do you attend meetings of the clubs or organizations you belong to?Never06/15/2025re you , , , , never , or living with a partner?Txifetwao75/04/2025UDIT-C AnswerDate RecordedQ1: How often do you have [...] medical care, and heating?Not hard at all06/29/2025 [facility] of Occupational Health - Occupational Stress Questionnaire AnswerDate RecordedDo you feel stress - tense, restless, nervous, or anxious, or unable to sleep at night because yourmind is troubled all the time - these days? Only a hcuabd8006/15/2025HC UtilitiesAnswerDate RecordedIn the past 12 months has the [employer], gas, oil, or water [employer] threatened to shut off services in your [...] were you homeless or living in a long term (including now)?No06/29/2025Hunger Vital SignAnswerDate Recorded Within the past 12 months, you worried that your food would run out before you got the money to buymore.Never true06/29/2025Within the past 12 months, the food you bought just didn't last and you didn't have money to get more.Never true 06/29/2025Sex and Gender InformationValueDate RecordedSex Assigned at BirthMale 04/08/2025 7:15 AM EDTLegal JzbMxkc0302/07/2022 10:15 PM EDTGender IdentityMale 04/08/2025 7:15 AM EDTSexual OrientationHeterosexual or Gjybdfhp26/28/2025 7:15 AM EDTdocumented as of this encounter Miscellaneous Notes * Telephone Encounter - Adrianne Reynolds MA - 07/29/2025 11:26 AM EST Ambar seay daughter is calling with update pt last seen 07/22 and he continues to have nose bleeds with clots. She would like to proceed with scheduling bronchoscopy for pt as discussed in last visit. Please review and call to coordinate appt dates/time [phone]. Thank you This phone message was created by the Ambulatory [facility] staff. If you need director of academic support follow up regarding this patient, please make your appropriate clinic staff member aware. Thank you. documented in this encounter Plan of Treatment DateTypeDepartmentCare Team (Latest Contact Info)Aolnmsiqfkj68/12/2026 1:30 PM ESTHospital Encounter [facility] Main Operating Room [address] [place] [phone] Chris Andre MD [address] [facility] [place] [phone] 08/23/2025 1:30 PM EST - 08/23/2025 5:00 PM ESTSurgery [facility] Main Operating Room [address] [place] [address] Chris Andre MD [address] [facility] [place] [address] ENDARTERECTOMY, FEMORAL WITH POSSIBLE FEM TO POP DMHJCO4109/21/2025 11:00 AM EST Follow-Up [facility] Nephrology [address] [facility] [place] [address] Batsheva Beckwith MD [address] [facility] 2 [facility] [place] [address] 10/21/2025 1:00 PM EDTAppointment [facility] CT Imaging [address] [facility] [place] [address] NamePriorityAssociated DiagnosesDate/TimeENDARTERECTOMY, FEMORAL Peripheral arterial occlusive disease Encounter for pre-operative examination 08/23/2025 1:30 PM ESTdocumented as of this encounter Goals GoalPatient Goal TypeAssociated ProblemsRecent ProgressPatient-Stated?Author Blood Pressure < 140/90 Blood Yovoaazf677/68(07/22/2025 2:32 PM EST)Cy Child, RNdocumented as of this encounter Visit Diagnoses Not on filedocumented in this encounter Care Teams Team MemberRelationshipSpecialtyStart DateEnd Date Susan Watson MD [address] [place] [address] PCP - GeneralNurse Practitioner10/13/24documented as of this encounter
--- OUTSIDE RECORDS SUMMARY | 2025-07-30 15:46 | XMS_ITS | Encounter Summary ---
Author Organization [facility] Address [address] [place] [address] Care Team Providers Care Insecticide Expert Name Role Phone Susan Watson MD Primary Care Provider [phone] Encounter Details DateTypeDepartmentCare Team (Latest Contact Info)Rphzxwhzzue52/15/2025Telephone [facility] [address] [place] [address] Melody Cheung MA Social History Tobacco UseTypesPacks/DayYears UsedDateSmoking Tobacco: FormerCigarettes2.525 1968 - 1993Smokeless Tobacco: CurrentChewAlcohol UseStandard Drinks/WeekComments Not Currently0 (1 standard drink = 0.6 oz pure alcohol)PHQ-2AnswerDate Recorded Patient Health Questionnaire-2 Qdnng18508/14/2024Humiliation, Afraid, Rape, and Kick questionnaireAnswerDate RecordedWithin the [...] times a week06/15/2025How often do you attend confucianism or protestant services?Never06/15/2025Do you belong to any clubs or organizations such as confucianism groups, unions, fraternal or athletic groups, or school groups?No06/15/2025How often do you attend meetings of the clubs or organizations you belong to?Never06/15/2025re you , , , , never , or living with a partner?Vplfhybkz19/04/2025UDIT-C AnswerDate RecordedQ1: How often do you have [...] medical care, and heating?Not hard at all06/29/2025 [facility] Occupational Health - Occupational Stress Questionnaire AnswerDate RecordedDo you feel stress - tense, restless, nervous, or anxious, or unable to sleep at night because yourmind is troubled all the time - these days? Only a ztifrm2906/15/2025HC UtilitiesAnswerDate RecordedIn the past 12 months has the [employer], gas, oil, or water [employer] threatened to shut off services in your [...] Assigned at BirthMale 04/08/2025 7:15 AM EDTLegal MmsSopp9502/07/2022 10:15 PM EDTGender IdentityMale 04/08/2025 7:15 AM EDTSexual OrientationHeterosexual or Jdngcrrl11/28/2025 7:15 AM EDTdocumented as of this encounter Miscellaneous Notes * Telephone Encounter - Melody Cheung MA - 07/26/2025 8:42 AM EST I called and spoke with Ambar, patient's daughter, on Saturday07/23/2025 around 5:15pm and made heraware that her father's US was ok and showed no pseudoaneurysm. Dr. Tolliver informed as well. Patient's daughter verbalized understanding. documented in this encounter Plan of Treatment DateTypeDepartmentCare Team (Latest Contact Info)Fkzncrehbxz95/12/2026 1:30 PM ESTHospital Encounter [facility] Main Operating Room [address] [place] [address] Chris Andre MD [address] [place] [address] 08/23/2025 1:30 PM EST - 08/23/2025 5:[address] [facility] Main Operating Room [address] [place] [phone] Chris Andre MD [address] [place] [address] ENDARTERECTOMY, FEMORAL WITH POSSIBLE FEM TO POP QAIYMJ8709/21/2025 11:00 AM EST Follow-Up [facility] Nephrology [address] [place] [address] Batsheva Beckwith MD [address] [facility] [address] [facility] [place] [address] 10/21/2025 1:[address] [facility] CT Imaging [address] [place] [address] NamePriorityAssociated DiagnosesDate/TimeENDARTERECTOMY, FEMORAL Peripheral arterial occlusive disease Encounter for pre-operative examination 08/23/2025 1:30 PM ESTdocumented as of this encounter Goals GoalPatient Goal TypeAssociated ProblemsRecent ProgressPatient-Stated?Author Blood Pressure < 140/90 Blood Yhssonkj545/68(07/22/2025 2:32 PM EST)Cy Child, JOHANAdocumented as of this encounter Visit Diagnoses Not on filedocumented in this encounter Care Teams Team MemberRelationshipSpecialtyStart DateEnd Date Susan Watson MD [address] [place] [address] PCP - GeneralNurse Practitioner10/13/24documented as of this encounter
--- OUTSIDE RECORDS SUMMARY | 2025-07-30 15:46 | XMS_ITS | Encounter Summary ---
Author Organization [facility] Address [address] [place] [address] Care Team Providers Care Manager Ambulatory Name Role Phone Susan Watson MD Primary Care Provider [phone] Reason for Referral * Imaging (Routine) - Pending ReviewSpecialtyDiagnoses / ProceduresReferred By ContactReferred To ContactCardiology Diagnoses Postoperative surgical complication involving circulatory system associated with cardiac catheterization, unspecified complication Procedures Lower extremity pseudoaneurysm duplex right Sarah Tolliver MD [address] [facility] [address] [facility] [place] [address] Phone: tel: fax: Referral IDStatusReasonStart DateExpiration DateVisits RequestedVisits [id number] Review Perform Procedure Encounter Details DateTypeDepartmentCare Team (Latest Contact Info)Pkfumgufvfg95/11/2025Orders Only [facility] [address] [place] [address] Melody Cheung MA Postoperative surgical complication involving circulatory system associated with cardiac catheterization, unspecified complication (Primary Dx) Social History Tobacco UseTypesPacks/DayYears UsedDateSmoking Tobacco: FormerCigarettes2.525 1968 - 1993Smokeless Tobacco: CurrentChewAlcohol UseStandard Drinks/WeekComments Not Currently0 (1 standard drink = 0.6 oz pure alcohol)PHQ-2AnswerDate Recorded Patient Health Questionnaire-2 Udnta82208/14/2024Humiliation, Afraid, Rape, and Kick questionnaireAnswerDate RecordedWithin the [...] times a week06/15/2025How often do you attend yarsani or religion services?Never06/15/2025Do you belong to any clubs or organizations such as yarsani groups, unions, fraternal or athletic groups, or school groups?No06/15/2025How often do you attend meetings of the clubs or organizations you belong to?Never06/15/2025re you , , , , never , or living with a partner?Pazglndlr65/04/2025UDIT-C AnswerDate RecordedQ1: How often do you have [...] medical care, and heating?Not hard at all06/29/2025 [employer] [place] of Occupational Health - Occupational Stress Questionnaire AnswerDate RecordedDo you feel stress - tense, restless, nervous, or anxious, or unable to sleep at night because yourmind is troubled all the time - these days? Only a lhqfmq6506/15/2025HC UtilitiesAnswerDate RecordedIn the past 12 months has the [employer], oil, or water [employer] threatened to shut off services in your [...] homeless or living in a residential (including now)?No06/29/2025Hunger Vital SignAnswerDate Recorded Within the past 12 months, you worried that your food would run out before you got the money to buymore.Never true06/29/2025Within the past 12 months, the food you bought just didn't last and you didn't have money to get more.Never true 06/29/2025Sex and Gender InformationValueDate RecordedSex Assigned at BirthMale 04/08/2025 7:15 AM EDTLegal HjeZtix6002/07/2022 10:15 PM EDTGender IdentityMale 04/08/2025 7:15 AM EDTSexual OrientationHeterosexual or Shgoxdkh53/28/2025 7:15 AM EDTdocumented as of this encounter Plan of Treatment DateTypeDepartmentCare Team (Latest Contact Info)Oadrsuwebqb51/12/2026 1:30 PM ESTHospital Encounter [facility] Main Operating Room [address] [place] [address] Chris Andre MD [address] [place] [address] 08/23/2025 1:30 PM EST - 08/23/2025 5:00 PM ESTSurgery [facility] Main Operating Room [address] [place] [address] Chris Andre MD [address] [address] ENDARTERECTOMY, FEMORAL WITH POSSIBLE FEM TO POP VLDILN7209/21/2025 11:00 AM EST Follow-Up [facility] Nephrology [address] [facility] [place] [address] Batsheva Beckwith MD [address] [facility] [address] 2 [facility] [place] [address] 10/21/2025 1:00 PM EDTAppointment [facility] CT Imaging [address] [place] [address] NameTypePriorityAssociated DiagnosesOrder ScheduleLower extremity pseudoaneurysm duplex rightVascular UltrasoundRoutine Postoperative surgical complication involving circulatory system associated with cardiac catheterization, unspecified complication Expected: 07/22/2025 (Approximate), Expires: 07/22/2027NamePriorityAssociated DiagnosesDate/TimeENDARTERECTOMY, FEMORAL Peripheral arterial occlusive disease Encounter for pre-operative examination 08/23/2025 1:30 PM ESTdocumented as of this encounter Goals GoalPatient Goal TypeAssociated ProblemsRecent ProgressPatient-Stated?Author Blood Pressure < 140/90 Blood Meadkbkr303/68(07/22/2025 2:32 PM EST)Cy Child, JOHANAdocumented as of this encounter Visit Diagnoses Diagnosis Encounter for pre-operative examination- Primary Peripheral arterial occlusive disease Unspecified peripheral vascular disease Postoperative surgical complication involving circulatory system associated with cardiac catheterization, unspecified complication- Primary Peripheral arterial occlusive disease Unspecified peripheral vascular disease Encounter for pre-operative examination documented in this encounter Care Teams Team MemberRelationshipSpecialtyStart DateEnd Date Susan Watson MD [address] [place] [address] PCP - GeneralNurse Practitioner10/13/24documented as of this encounter
--- OUTSIDE RECORDS SUMMARY | 2025-07-30 15:46 | XMS_ITS | Clinical Summary ---
Author Organization [employer] Address [id number] [address] [place] [address] Care Team Providers Care Clinical Unit Educator Name Role Phone Susan Watson APRN-GATE SERVICES SUPERVISOR Primary Care Provider Allergies No known active [...] chest pain.4Active Active Problems ProblemNoted DateDiagnosed DateCervical ypllcyreiux00/10/2025Neck pain11/19/2024 Frequent falls06/17/2024Functional gait gydniaolfbf21/06/2024hronic obstructive pulmonary disease, vdalowmwlir41/31/2024Chronic kidney disease, stage 4 (severe) 4Closed nondisplaced fracture of greater tuberosity of left humerus with routine zdnxjrg4109/19/2023oronary artery disease involving kotlik coronary artery of kotlik heart without angina appymitl33/08/2024GAD (generalized anxiety disorder)09/19/2023Traumatic complete tear of left rotator cuff09/19/2023MCI (mild cognitive impairment)2Recurrent major depression in partial yblzxwzzq60/01/2022Recurrent major depressive disorder, in full remission 2Primary jgfhrekolkqj07/17/2014bnormal results of cardiovascular function qipuabf1409/30/2013 Overview (01/27/2025): MILD INFERIOR AND ANTERIOR ISCHEMIA EF 52% Chest pain09/18/2013Dyspnea and respiratory yvzucfholmyco24/07/2014 Overview (01/27/2025): 66 pk/yr history of smoking. Quit in 1994, when diagnosed with NSCLC and treated with RULobectomy and XRT. Also has extensive coronary disease, with CABG. Sees cardiology at [place]. Anxiety, HTN, CKD IIIb. PCP started albuterol [...] without BD response. Atherosclerosis of arteries of mtlatdogqgo13/14/2013Intermittent claudication 08/25/2012Gastroesophageal reflux disease without iragykvdahn91/07/2012Migraine 07/18/2012Mixed ifsnzxzybpgsyl27/07/2012WeaknessDepression Social History Tobacco UseTypesPacks/DayYears UsedDateSmoking Tobacco: FormerCigarettes Smokeless Tobacco: CurrentChew Tobacco Cessation:Ready to Q uit: Not Asked; Counseling Given: Not Answered Alcohol UseStandard Drinks/WeekCommentsNever0 (1 standard drink = 0.6 oz pure alcohol)ChildcareAnswerDate IhumbtclPkrcdiyhkRzqlmha69/21/2020EmploymentAnswer Date VztgjsocJtjlwkufmvTqezblx56/21/2020Hunger ScreeningAnswerDate Recorded Within the past 12 months we worried whether our food would run out before we got money to buy more.Never True03/10/2025Within the past 12 months the food we bought just didn't last and we didn't have money to get more.Never True 03/10/2025Purpose - LifeAnswerDate RecordedPurpose and direction in lifeUnknown 09/22/2020ex and Gender InformationValueDate RecordedSex Assigned at BirthNot on fileLegal AvdOazb7810/02/2019 11:04 AM ESTGender IdentityNot on fileSexual OrientationNot on file Last Filed Vital Signs Vital SignReadingTime TakenCommentsBlood Iwfwoppg502/54003/10/2025 9:53 AM EDT Fsynh313803/10/2025 9:53 AM JTUFnzpockqeyu56.2 ??C (97.2 ??F)02/19/2025 1:56 PM EDTRespiratory Rmll908103/10/2025 9:53 AM EDTOxygen Kksjyqglgi455%03/10/2025 9:53 AM EDTInhaled Oxygen Concentration--Upufvd41.9 kg (163 lb)03/10/2025 9:53 AM EDT Zxnjly595.1 cm (5' 5 )03/10/2025 9:53 AM EDTBody Mass Index27.12003/10/2025 9:53 AM EDT Plan of Treatment Health MaintenanceDue DateLast DoneCommentsTobacco Wjztkkakni1953 Depression Lapxpoeol10/17/1965Adult BMI Follow Up Plan1971DTaP,Tdap and Td Vaccines (1 - Tdap)1972Zoster (Shingles) Vaccine (1 of 2)1972RSV ( or age 60+ yrs) (1 - Risk 50-74 years 1-dose series)2003Fall Risk Risytqcmg91/17/2018COVID-19 Vaccine ( - season)2025 08/06/2021, 11/08/2020, 10/19/2020Influenza Spzbfmv73/07/2021, 08/03/2020Statin Use: Annohrvjrwadof53dult BMI Screening Tobacco Pkmvpcgfv65bdominal Aortic Aneurysm (AAA) JobjcrVmchrqjni50/24/2020 Medical Devices Not on file Insurance Care Teams Team MemberRelationshipSpecialtyStart DateEnd Date Susan Watson, GERARDO-GATE SERVICES SUPERVISOR PCP - GeneralNurse Practitioner01/11/25
--- OUTSIDE RECORDS SUMMARY | 2025-07-30 15:46 | XMS_ITS | Encounter Summary ---
Author Organization [facility] Address [address] [place] [address] Care Team Providers Care Cork Molder Name Role Phone Susan Watson MD Primary Care Provider [phone] Encounter Details DateTypeDepartmentCare Team (Latest Contact Info)Fafejdvuufq81/05/2025Telephone [facility] [address] [place] [address] Sarah Tolliver MD [address] [facility] [address] [facility] [place] [address] Social History Tobacco UseTypesPacks/DayYears UsedDateSmoking Tobacco: FormerCigarettes Smokeless Tobacco: CurrentChewAlcohol UseStandard Drinks/WeekCommentsNot Currently0 (1 standard drink = 0.6 oz pure alcohol)PHQ-2AnswerDate Recorded Patient Health Questionnaire-2 Rjyje35508/14/2024Humiliation, Afraid, Rape, and Kick questionnaireAnswerDate RecordedWithin the [...] week06/15/2025How often do you attend mandaeism or baptism services?Never06/15/2025Do you belong to any clubs or organizations such as mandaeism groups, unions, fraternal or athletic groups, or school groups?No06/15/2025How often do you attend meetings of the clubs or organizations you belong to?Never06/15/2025re you , , , , never , or living with a partner?Msqjodftx33/04/2025UDIT-C AnswerDate RecordedQ1: How often do you have [...] medical care, and heating?Not hard at all06/29/2025 [place] of Occupational Health - Occupational Stress Questionnaire AnswerDate RecordedDo you feel stress - tense, restless, nervous, or anxious, or unable to sleep at night because yourmind is troubled all the time - these days? Only a dvuzit0906/15/2025HC UtilitiesAnswerDate RecordedIn the past 12 months has the [employer], gas, oil, or water company threatened to [...] Assigned at BirthMale 04/08/2025 7:15 AM EDTLegal DxyNjxx3702/07/2022 10:15 PM EDTGender IdentityMale 04/08/2025 7:15 AM EDTSexual OrientationHeterosexual or Yznnmqdc65/28/2025 7:15 AM EDTdocumented as of this encounter Miscellaneous Notes * Telephone Encounter - Irene Seals - 07/16/2025 4:06 PM EST Called and spoke with pt daughter regarding message response per Dr. Tolliver. pt daughter acknowledged and confirmed and will also follow up with Dr. Tolliver at pt next upcoming appt. * Telephone Encounter - Irene Seals - 07/16/2025 3:38 PM EST Pt daughter called asking Dr. Tolliver if he was able to review all completed testing done at [facility] from pt recent admission. pt daughter states that the patient is still coughing up blood and wondering if discharge was a good idea. If not what would Dr. Tolliver prefer to do? Please advise. documented in this encounter Plan of Treatment DateTypeDepartmentCare Team (Latest Contact Info)Kytxgzxnbdn61/12/2026 1:30 PM ESTHospital Encounter [facility] Main Operating Room [address] [place] [address] Chris Andre MD [address] [place] [address] 08/23/2025 1:30 PM EST - 08/23/2025 5:00 PM ESTSurgery [facility] Main Operating Room [address] [place] [address] Chris Andre MD [address] [place] [address] ENDARTERECTOMY, FEMORAL WITH POSSIBLE FEM TO POP XIBVYA8809/21/2025 11:00 AM EST Follow-Up [facility] Nephrology [address] [place] [address] Batsheva Beckwith MD [address] [facility] 2 [facility] [place] [address] 10/21/2025 1:00 PM EDTAppointment [facility] CT Imaging [address] [place] [address] NamePriorityAssociated DiagnosesDate/TimeENDARTERECTOMY, FEMORAL Peripheral arterial occlusive disease Encounter for pre-operative examination 08/23/2025 1:30 PM ESTdocumented as of this encounter Goals GoalPatient Goal TypeAssociated ProblemsRecent ProgressPatient-Stated?Author Blood Pressure < 140/90 Blood Odgfheqm977/68(07/22/2025 2:32 PM EST)Cy Child, JOHANAdocumented as of this encounter Visit Diagnoses Not on filedocumented in this encounter Care Teams Team MemberRelationshipSpecialtyStart DateEnd Date Susan Watson MD [address] [place] [address] PCP - GeneralNurse Practitioner10/13/24documented as of this encounter
--- OUTSIDE RECORDS SUMMARY | 2025-07-30 15:46 | XMS_ITS | Encounter Summary ---
Author Organization [facility] Address [address] [place] [address] Care Team Providers Care Raise Driller Name Role Phone Susan Watson MD Primary Care Provider [phone] Reason for Visit * ReasonOnset DateCommentsRequest for Return Call07/16/2025 Encounter Details DateTypeDepartmentCare Team (Latest Contact Info)Zagvnsukcxc99/05/2025Telephone [facility] [address] [place] [address] Peace Gong MA Request for Return Call Social History Tobacco UseTypesPacks/DayYears UsedDateSmoking Tobacco: FormerCigarettes Smokeless Tobacco: CurrentChewAlcohol UseStandard Drinks/WeekCommentsNot Currently0 (1 standard drink = 0.6 oz pure alcohol)PHQ-2AnswerDate Recorded Patient Health Questionnaire-2 Slywn39808/14/2024Humiliation, Afraid, Rape, and Kick questionnaireAnswerDate RecordedWithin the [...] times a week06/15/2025How often do you attend jewish or jainism services?Never06/15/2025Do you belong to any clubs or organizations such as jewish groups, unions, fraternal or athletic groups, or school groups?No06/15/2025How often do you attend meetings of the clubs or organizations you belong to?Never06/15/2025re you , , , , never , or living with a partner?Biaqaqeok47/04/2025UDIT-C AnswerDate RecordedQ1: How often do you have [...] medical care, and heating?Not hard at all06/29/2025 [facility] of Occupational Health - Occupational Stress Questionnaire AnswerDate RecordedDo you feel stress - tense, restless, nervous, or anxious, or unable to sleep at night because yourmind is troubled all the time - these days? Only a mmqzsp1906/15/2025HC UtilitiesAnswerDate RecordedIn the past 12 months has the [employer], gas, oil, or water [employer] threatened to shut off services in your [...] Assigned at BirthMale 04/08/2025 7:15 AM EDTLegal FjyCrhw2302/07/2022 10:15 PM EDTGender IdentityMale 04/08/2025 7:15 AM EDTSexual OrientationHeterosexual or Jfpftwjr56/28/2025 7:15 AM EDTdocumented as of this encounter Miscellaneous Notes * Telephone Encounter - Peace Gong MA - 07/16/2025 3:21 PM EST Nini (pt's daughter) called to speak w/Dr. Tolliver's diet assistant; pt's daughter is requesting a return call. Please advise documented in this encounter Plan of Treatment DateTypeDepartmentCare Team (Latest Contact Info)Muovsuuvmcw83/12/2026 1:30 PM ESTHospital Encounter [facility] Main Operating Room [address] [place] [address] Chris Andre MD [address] [place] [address] 08/23/2025 1:30 PM EST - 08/23/2025 5:00 PM ESTSurgery [facility] Main Operating Room [address] [place] [address] Chris Andre MD [address] [place] [address] ENDARTERECTOMY, FEMORAL WITH POSSIBLE FEM TO POP GEXIBN0609/21/2025 11:00 AM EST Follow-Up [facility] Nephrology [address] [facility] [place] [address] Batsheva Beckwith MD [address] [facility] [place] [address] 10/21/2025 1:00 PM EDTAppointment [facility] CT Imaging [address] [place] [address] NamePriorityAssociated DiagnosesDate/TimeENDARTERECTOMY, FEMORAL Peripheral arterial occlusive disease Encounter for pre-operative examination 08/23/2025 1:30 PM ESTdocumented as of this encounter Goals GoalPatient Goal TypeAssociated ProblemsRecent ProgressPatient-Stated?Author Blood Pressure < 140/90 Blood Zkatsevx695/68(07/22/2025 2:32 PM EST)Cy Child, JOHANAdocumented as of this encounter Visit Diagnoses Not on filedocumented in this encounter Care Teams Team MemberRelationshipSpecialtyStart DateEnd Date Susan Watson MD [address] [place] [address] PCP - GeneralNurse Practitioner10/13/24documented as of this encounter
--- OUTSIDE RECORDS SUMMARY | 2025-07-30 15:46 | XMS_ITS | Clinical Summary ---
Author Organization [facility] Address [address] [place] [id number] Care Team Providers Care Superintendent Pier Name Role Phone Thomas Hurtado MD Unavailable Susan Watson CNP Primary Care Provider [phone] Allergies No known active allergies Medications * This document contains information received from the source organization and may not represent a complete record from that organization. MedicationSigDispense QuantityRefillsLast FilledStart DateEnd DateStatus albuterol HFA (PROVENTIL HFA, VENTOLIN HFA) 90 mcg/actuation inhaler INHALE 1 PUFF BY MOUTH EVERY 4 HOURS VPGWLF3012/02/2021ctive amLODIPine (NORVASC) 5 mg tablet amlodipine 5 [...] 1/2 TABLETS BY MOUTH EVERY DAYActive omega 4-koa-exa-fish oil (FISH OIL) 100-160-1,000 mg cap Take [...] remission 04/12/2022MCI (mild cognitive impairment)2Dyspnea and respiratory /01/2022 Overview (02/09/2022): 66 pk/yr history of smoking. Quit in 1994, when diagnosed with NSCLC and treated with RULobectomy and XRT. Also has extensive coronary disease, with CABG. Sees cardiology at [place]. Anxiety, HTN, CKD IIIb. PCP started albuterol [...] present. ?? Pulmonary rehabilitation. ?? Referral to laborer livestock here, at his request. ?? Echocardiogram. ?? Stop advair and breo today and start spiriva. His COPD classification would indicate a LAMA onlyfor most patients. Social History Tobacco UseTypesPacks/DayYears UsedDateSmoking Tobacco: NeverSmokeless Tobacco: FormerChewQuit: 07/14/2022 Tobacco Cessation:Counseling Given: Not Answered Alcohol UseStandard Drinks/WeekCommentsNot Currently0 (1 standard drink = 0.6 oz pure alcohol)PHQ-2AnswerDate RecordedPHQ-2 eindl272/04/2025Area Deprivation IndexAnswerDate RecordedNational Score (1-100), lower number is lower risk87 05/16/2023State Score (1-10), lower number is lower aqde8763Data from: https://www.neighborhoodatlas.medicine.[facility].edu/. Last address used for [address]/16/2023Sex and Gender InformationValueDate Recorded Sex Assigned at BirthNot on fileLegal GlnHctd5312/05/2021 11:57 AM EDTGender IdentityNot on fileSexual OrientationNot on file Last Filed Vital Signs Vital SignReadingTime TakenCommentsBlood Viuhline874/6209 11:06 AM EDT Wxcjq2448 11:06 AM LIGJtqmhhhauhn46.4 ??C (97.5 ??F)02/09/2022 11:04 AM EDTRespiratory Uyvw5344 11:04 AM EDTOxygen Zlqxvjbnse01%04/01/2025 2:14 PM EDTInhaled Oxygen Concentration--Uykglh18.6 kg (160 lb)04/29/2025 11:06 AM EDTper nkepjrpPrlbiz394.6 cm (5' 6 )04/01/2025 2:14 PM EDTBody Mass Index25.82 04/01/2025 2:14 PM EDT Plan of Treatment Health MaintenanceDue DateLast DoneCommentsAnnual PCP Team Chronic Disease Visit 1971Anxiety Druwsankj32/17/1971Hepatitis C Dwzgxkhoo22/17/1971LDL Bghohrnhwlj29/17/1971DTaP,Tdap,Td Vaccine (1 - Tdap)1972CT Colonography 1998Cologuard (FIT-DNA)04/28/19982860Xyyudkfcmmx55/17/1998Colorectal Cancer Ffqkfxvwd29/17/1998Fecal Occult Blood04/28/19980536Setfthvgvajgm31/17/1998RSV Vaccine (1 - Risk 50-74 years 1-dose series)2003Shingrix Vaccine (1 of 2) 2003Advance Directive Uxahdernry94/01/2025Medicare Advantage Annual Wellness Visit5Covid-19 Vaccine ( season)2025 08/06/2021, 11/08/2020, 10/19/2020Influenza Vaccine (#1), 08/03/2020Serum Yuubbhvtzk50/28/46692104/08/2025, 01/12/2025, 10/20/2024, Additional history existsDiabetes Xddnbqjbk88/28/48759604/08/2025, 05/19/2021, 10/02/2019Lipid Swuywcvtr62, 4Pneumococcal Vaccine: 50+Qofwwldrx84/23/2020, 08/27/2019 Goals GoalPatient Goal TypeAssociated ProblemsRecent ProgressPatient-Stated?Author Blood Pressure < 130/80 Blood Awnlyekc083/62(04/29/2025 11:06 AM EDT)Michael Garcia MD Insurance Care Teams Team MemberRelationshipSpecialtyStart DateEnd Date Susan Watson CNP [address] [place] [address] PCP - GeneralFamily Medicine04/01/25 Thomas Hurtado MD [address] [place] [address] MICHAEL Referring TeamPsychiatry12/21/21
--- OUTSIDE RECORDS SUMMARY | 2025-07-30 15:47 | XMS_ITS | Clinical Summary ---
Author Organization [facility] Address [address] [place] [address] Care Team Providers Care Boiler Assistant Operator Name Role Phone Susan Watson MD Primary Care Provider [phone] Allergies No known active allergies Medications MedicationSigDispense QuantityRefillsLast FilledStart DateEnd DateStatus albuterol 90 mcg/actuation inhaler INHALE 1 PUFF BY MOUTH EVERY 4 HOURS HHAMXL4912/02/2021ctive aspirin 81 mg EC tablet Take 1 [...] mouth in the morning and at bedtime.Active bbcqlfqturt-iabsblwpf-xvxglfmw (Trelegy Ellipta) 100-62.5-25 mcg blister with device [...] times daily for 197 doses. 90 tablet 502/6Active acetaminophen (Tylenol Extra Strength) 500 mg tablet [...] (three) times a week. 120 g 5Active Additional Information Patient taking differently:10 g oralAs needed, Reported on 07/22/2025 furosemide (Lasix) 20 mg tablet Take 20 mg by mouth in the morning and at bedtime.Active isosorbide mononitrate ER (Imdur) 60 mg 24 hr tablet Take 60 mg by mouth in the morning.10/22/2019Active amoxicillin-pot clavulanate (Augmentin) 875-125 mg tablet Indications:HemoptysisTake 1 tablet by mouth two times daily for 10 days. 20 tablet /5Active OLANZapine (ZyPREXA) 2.5 mg tablet 5Active amLODIPine (Norvasc) 5 mg tablet Take 1 tablet by mouth two times daily.07/06/2025Discontinued atorvastatin (Lipitor) 80 mg tablet Take 80 mg by mouth at bedtime.Discontinued(Stop Taking at Discharge) sodium zirconium cyclosilicate (Lokelma) 10 gram packet Indications:Kidney disease, chronic, stage IV (GFR 15-29 ml/min) (CMS/HCC), Essential hypertension,HyperkalemiaTake 10 g by mouth 3 (three) times a week. 120 g 310/15/444603/Discontinued(Reorder) sulfamethoxazole-trimethoprim (Bactrim DS) 800-160 mg tablet Indications:Wound infection after surgeryTake 1 tablet by mouth every 12 (twelve) hours for 7 days. 14 tablet Discontinued(Stop Taking at Discharge) famotidine (Pepcid) 20 mg [...] daily for 5 days. 18 tablet Discontinued amoxicillin-pot clavulanate (Augmentin) 875-125 mg tablet Indications:HemoptysisTake 1 tablet by mouth two times daily for 7 days. 14 tablet /06/2025Discontinued Active Problems ProblemNoted DateDiagnosed DateMicroscopic hhujtsymu67/18/2025GI bleeding 07/19/20259939Uzsnkb34/18/2025hronic kidney disease, stage 3b06/29/2025Depression 06/29/20259021Vbwbqrlfswsw77/18/2025Other nondisplaced fracture of upper end of left humerus, subsequent encounter for fracture with routine avuqzbf8006/29/2025Sigmoid dpgvoorjodfhny65/18/2025Ventral xeprqe7306/29/2025 Overview (06/29/2025): Problem List clean-up per request of Phys. EHR Cmte Swpziyap37/18/2025AD (coronary artery disease) of artery bypass graft06/29/2025 Hypertensive chronic kidney disease with stage 1 through stage 4 chronic kidney disease, or unspecified chronic kidney fnmvxzs5206/29/2025losed fracture of greater tuberosity of left kqbvdxh2506/29/20259064Luuvupjaeada54/18/2025Rectal ropvupat84/18/2025 Assessment & Plan (06/30/2025 2:16 PM EST): - Likely is having an active diverticular bleed - Currently is hemodynamically stable - Received 2 units of packed RBCs and monitor hemoglobin closely - GI following, undergoing colonoscopy today - Holding Xarelto, will await results of colonoscopy Assessment & [...] EST): EF 40-45% currently is euvolemic Renal uborkv4606/29/2025 Assessment & Plan (06/30/2025 2:16 PM EST): [...] on aspirin, Plavix, metoprolol, atorvastatin and fenofibrate Uvilonhwqh61/04/2025Other specified symptoms and signs involving the circulatory and respiratory koettjm9906/14/2025S/P femoropopliteal bypass whtiiot7906/14/2025 Assessment & Plan (06/30/2025 2:16 PM EST): - was on dual antiplatelet therapy plus Xarelto - vascular surgery following and recommending to continue plavix at this time Assessment & Plan (06/29/2025 3:05 AM EST): was on dual antiplatelet therapy plus Xarelto Consult vascular surgery for input regarding anticoagulation Encounter for pre-operative jrzehgsmacs91/28/2025Peripheral arterial occlusive waheedh2506/07/2025Reduced ejection fraction concurrent with and due to acute heart vfcaptj4004/29/20256539Iehwptjzfsnt75/12/2025 Assessment & Plan (06/07/2025 2:40 PM EDT): Relevant Hx: Can walk only 10 steps prior to stopping due to pain Course: Previous stenting of the right SFA, continues to be symptomatic Today's Plan: OR today for right fem-pop bypass with graft, 2g Ancef given for surgical prophylaxis Lower extremity pain, ulowadpwi39/31/2025 Assessment & Plan (06/07/2025 2:40 PM EDT): Plan same as below Chronic diastolic heart avtlkah7003/01/2025Pulmonary itqedhfhkyja73/21/2025 Cervical ldvrdksiqpe34/10/2025Neck pain11/19/2024Frequent falls06/17/2024 Functional gait bfbbglklofi36/06/2024hronic obstructive pulmonary disease, miiqorhohoq85/31/2024 Assessment & Plan (06/30/2025 2:16 PM EST): [...] greater tuberosity of left humerus with routine flxvvcs6909/19/2023GAD (generalized anxiety disorder)09/19/2023H/O: lung cancer 09/19/2023Traumatic complete tear of left rotator cuff09/19/2023oronary artery disease involving mcgrath coronary artery of mcgrath heart without angina pectoris 09/19/2023 Assessment & [...] (mild cognitive impairment)2Recurrent major depression in partial vhbtmijjt89/01/2022Recurrent major depressive disorder, in full remission 04/12/2022Hypertensive uynfkuue29/17/2014 Assessment & Plan (06/30/2025 2:16 PM EST): - continue amlodipine, metoprolol - Blood pressure within acceptable range on 06/30 Assessment & Plan (06/29/2025 3:05 AM EST): continue amlodipine, metoprolol Abnormal results of cardiovascular function jxsmcyh2709/30/2013 Overview (10/13/2024): MILD INFERIOR AND ANTERIOR ISCHEMIA EF 52% Chest pain09/18/2013Dyspnea and respiratory /07/2014 Overview (10/13/2024): 66 pk/yr history of smoking. Quit in 1994, when diagnosed with NSCLC and treated with RULobectomy and XRT. Also has extensive coronary disease, with CABG. Sees cardiology at [place]. Anxiety, HTN, CKD IIIb. PCP started albuterol [...] sputum. No allergies. Used to work in [employer], but minimal exposure. No other exposures. Lungs are clear on exam. No edema. CT in December 2021 at OSH (no images available) - report says 5 mm nodule in RLL. Radiation changes. PFT's from OSH, report says mild obstruction with no BD response. Our spirometry suggests mild obstruction without BD response. Atherosclerosis of arteries of jrbntoxydve41/14/2013Intermittent claudication 08/25/2012Peripheral vascular ciidpdm0008/25/2012 Assessment & Plan (06/30/2025 2:16 PM EST): - was on dual antiplatelet therapy plus Xarelto - vascular surgery following and recommending to continue plavix at this time Assessment & Plan (06/29/2025 3:05 AM EST): was on dual antiplatelet therapy plus Xarelto Consult vascular surgery for input regarding anticoagulation Gastroesophageal reflux disease without yskollvogob52/07/9563Flytlzqw73/07/2012 Mixed qmtgnclorkjzgb27/07/2012 Assessment & Plan (06/30/2025 2:16 PM EST): - continue atorvastatin and fenofibrate Assessment & Plan (06/29/2025 3:05 AM EST): continue atorvastatin and fenofibrate Coronary sdxotgprjzedbmn62/07/2012Primary ogczthbbtlkt65/07/2012 Resolved Problems ProblemNoted DateDiagnosed DateResolved DateEncounter for pre-operative rubhwwhpdqj08 Encounters DateTypeDepartmentCare TqmmJzdovorefpl84/18/2025Telephone [address] [place] [address] Adrianne Reynolds MA 07/26/2025Orders Only [facility] [address] [place] [phone] David Reid MD 07/26/2025Telephone [place] [address] [place] [phone] Melody Cheung MA 07/22/2025 2:30 PM ESTConsult [address] [place] [address] Robert Brock MD Hemoptysis (Primary Dx); Bleeding from the nose; S/P femoropopliteal bypass surgery; Coronary artery disease involving coronary bypass graft of mcgrath heart without angina pectoris; H/O: lung fyspgm0407/22/2025 9:30 AM ESTFollow-Up [facility] [address] [place] [facility] [place] [address] Sarah Tolliver MD Dyspnea, unspecified type (Primary Dx); Chronic obstructive pulmonary disease, unspecified COPD type (CMS/HCC); PAD (peripheral artery disease); Chronic kidney disease, stage 4 (severe) (CMS/HCC); Reduced ejection fraction concurrent with and due to acute heart failure (CMS/HCC); Post-operative pain07/22/2025 12:05 AM EST - 07/22/2025 11:59 PM ESTHospital Encounter [facility] Radiology External Films [address] [place] [phone] Discharge Disposition: Home or Self Care ()07/22/2025 - 07/22/2025 12:04 AM ESTHospital Encounter [facility] Radiology External Films [address] [place] [phone] Discharge Disposition: Home or Self Care ()07/22/2025Orders Only [facility] Heart at [facility] [address] [place] [phone] Melody Cheung MA Postoperative surgical complication involving circulatory system associated with cardiac catheterization, unspecified complication (Primary Dx)07/20/2025bstract [facility] WOUND CARE CLINIC [address] [place] [address] Mala Cooper NP 07/16/2025Telephone [facility] Vascular [facility] [address] [place] [address] Sarah Tolliver MD 07/16/2025Telephone [facility] V[facility] [address] [place] [address] Peace Gong MA Request for Return Call07/06/2025 1:00 PM ESTFollow-Up [facility] Ne[facility] [address] [place] [phone] Batsheva Beckwith MD Chronic kidney disease, stage 3b (CMS/HCC) (Primary Dx); Electrolyte imbalance; Anemia due to stage 3b chronic kidney disease (CMS/HCC); Essential hypertension; HFrEF (heart failure with reduced ejection fraction) (CMS/HCC); Peripheral arterial occlusive disease; Kidney disease, chronic, stage IV (GFR 15-29 ml/min) (CMS/HCC); Jogctadfzpjf10/24/2025 2:35 PM ESTLab [facility] Outpatient Draw Station [address] [place] [address] Lower GI bleed07/05/2025 2:15 PM ESTFollow-Up [facility] [place] [facility] [address] [place] [phone] Nadia Sheppard PA-C Postoperative wound dehiscence, subsequent encounter (Primary Dx); PAOD (peripheral arterial occlusive disease)07/02/2025Telephone [facility] [address] [place] [phone] Brianne Morales, JOHANA Hospital Follow-up07/02/2025Telephone [facility] [address] [facility] [place] [phone] Elza Butt MA 07/01/2025 1:44 PM ESTAnesthesia Event [facility] [address] [place] [address] Melody Cortes MD Kwak, Bebe Canales MD 07/01/20254791Uhrtnp51/19/2025 2:08 PM ESTAnesthesia Event [facility] Invasive [facility] [address] [place] [address] Melody Cortes MD Stimes, Nicholas, MD 06/30/20251043Ixtpcj90/17/2025 5:59 PM EST - 07/01/2025 6:53 PM ESTHospital Encounter [facility] [address] [place] [phone] Cleopatra Curiel MD Horani, Omar, MD Chang, Kyu Chul, MD Lower GI bleed (Primary Dx); Diverticular hemorrhage; Metabolic acidosis Discharge Disposition: Home or Self Care (01)06/28/20251895Dpqfhq10/17/2025Orders Only [facility] Infectious Disease [address] [facility], [address] [place] [phone] Carolyn Romo MA 06/28/2025Results Follow-Up [facility] Infectious Disease [address] [facility], [address] [place] [address] Carolyn Romo MA Basic metabolic panel, Magnesium, Phosphorus, CBC06/26/2025 1:20 PM EST - 06/26/2025 8:38 PM ESTEmergency [facility] Emergency [address] [place] [address] Brayan Gutierrez MD Dislocation of finger, initial encounter (Primary Dx); Peripheral arterial disease; Fall, initial encounter Discharge Disposition: Home or Self Care ()06/26/20259979Fisdwj31/14/2025 3:05 PM ESTLab [facility] Outpatient Draw Station [address] [place] [address] Chronic kidney disease, unspecified CKD stage; Peripheral arterial occlusive disease; Encounter for pre-operative ewvnfgkmuao07/14/2025 2:00 PM ESTFollow-Up [facility] Vascular and Endovascular Surgery [address] [place] [address] Nadia Sheppard PA-C Postoperative wound dehiscence, subsequent encounter (Primary Dx); PAOD (peripheral arterial occlusive disease); Dehiscence of operative wound, subsequent lybxhkbca02/10/2025Orders Only [facility] Pre-Anesthesia Clinic [address] [facility] [place] [phone] Chasity Bryant RN 06/15/2025 6:56 PM EST - 06/19/2025 6:55 PM ESTHospital Encounter [facility] 4CD [address] [place] [address] Damaris Gee PA-C Nazzal, Munier, MD Cellulitis (Primary Dx); Wound infection after surgery Discharge Disposition: Home or Self Care ()06/15/20257615Avbvfx54/03/2025 2:00 PM ESTFollow-Up [facility] Heart [facility] Vascular and Endovascular Surgery [address] [place] [address] Mala Cooper NP Other specified symptoms and signs involving the circulatory and respiratory systems (Primary Dx); Claudication; S/P femoropopliteal bypass ebmzihl6406/12/2025 1:37 AM EDT - 06/12/2025 2:29 AM EDTEmergency [facility] Emergency [address] [place] [address] Karan Fuller MD Encounter for postoperative wound check (Primary Dx) Discharge Disposition: Home or Self Care ()06/12/20258071Wwnijz83/28/2025Orders Only [facility] Heart and Vascular [place] [facility] [address] [place] [address] Jessica Fatima MA Peripheral arterial occlusive disease (Primary Dx); Encounter for pre-operative /28/2025Orders Only [facility] [address] [facility] [place] [address] Carolyn Romo MA 06/07/2025 2:51 PM EDTAnesthesia Event [facility] Main Operating Room [address] [place] [address] Trang Chen MD Meisler, Adam, MD 06/07/2025 11:00 AM EDT - 06/07/2025 2:00 PM EDTSurgery [facility] Main Operating Room [address] [place] [address] Chris Andre MD Right Femoral- Popliteal Bypass with 8mm Propaten Graft above the knee [83825 (CPT??)]06/07/2025 9:26 AM EDT - 06/09/2025 7:30 PM EDTHospital Encounter [facility] 4AB Urology [address] [place] [address] Chris Andre MD Peripheral arterial occlusive disease (Primary Dx); Lower extremity pain, bilateral; Severe claudication; Encounter for pre-operative examination; Lower limb ischemia; Atherosclerosis of arteries of extremities Discharge Disposition: Home or Self Care ()06/07/20258245Qjuixn72/24/2025Telephone [facility] [address] [facility] [place] [address] Batsheva Beckwith MD 06/02/2025Results Follow-Up [facility] [address] [place] [address] Carolyn Romo MA Basic metabolic panel05/31/2025 11:55 AM EDTLab [facility] Outpatient Draw Station [address] [facility] [place] [address] Huaxagyfedpx07/16/2025Results Follow-Up [facility] [address] [place] [address] Batsheva Beckwith MD Urinalysis with microscopic, Microalbumin, urine, random, Creatinine, urine, random, Additional followed-up results: 2:55 PM EDTLab [facility] Outpatient Draw Station [address] [place] [phone] Kidney disease, chronic, stage IV (GFR 15-29 ml/min) (CMS/HCC); Essential hypertension; Kpprisrtmxvi57/15/2025 1:00 PM EDTOffice Visit [facility] [address] [place] [address] Batsheva Beckwith MD Kidney disease, chronic, stage IV (GFR 15-29 ml/min) (CMS/HCC) (Primary Dx); Essential hypertension; Hyperkalemia; HFrEF (heart failure with reduced ejection fraction) (CMS/HCC); Peripheral arterial jargirk9605/25/2025Telephone [facility] Pre-Anesthesia Clinic [address] [place] [address] [place] [phone] Christopher Gongora, MÓNICA 05/24/2025 2:35 PM EDTLab [facility] Medical Pavilion Draw Station [address] [place] [address] [place] [phone] Lower extremity pain, bilateral; Severe claudication; Encounter for pre-operative eotyplnhcmn50/13/2025 1:30 PM EDTPre-Admission Testing [facility] Pre-Anesthesia Clinic [address] [place] [address] [place] [address] 05/24/20251925Fxdjtg07/06/2025Telephone [facility] [address] [facility] [place] [address] Batsheva Beckwith MD 05/14/2025bstract [facility] AUTHORIZATION DEPARTMENT [address] [place] [address] Chris Andre MD 05/11/2025 10:30 AM EDT - 05/11/2025 11:30 AM EDTSurgery [facility] Heart [facility] [place] [facility] [address] [place] [address] Sarah Tolliver MD Coronary fjeyhfpmwge97/30/2025 7:13 AM EDT - 05/11/2025 6:03 PM EDTHospital Encounter [facility] Heart [facility] Vascular [place] [facility] [address] [place] [address] Sarah Tolliver MD Reduced ejection fraction concurrent with and due to acute heart failure (CMS/HCC) Discharge Disposition: Home or Self Care (01)05/11/20250506Hxcuoy81/23/2025Travel from Last 3 Months Immunizations ImmunizationAdministration DatesNext DueInfluenza, High Dose Seasonal, Preservative Free06/19/2025Influenza, High-dose Seasonal, Quadrivalent, Preservative Free05/23/2021,08/03/2020Pneumococcal Conjugate PCV 13008/27/2019 Pneumococcal Polysaccharide NHJ693410/04/2019 Family History Medical HistoryRelationNameCommentsDiabetesMotherMarionRelationNameStatus CommentsMotherMarion Social History Tobacco UseTypesPacks/DayYears UsedDateSmoking Tobacco: FormerCigarettes2.525 1968 - 1993Smokeless Tobacco: CurrentChewAlcohol UseStandard Drinks/WeekComments Not Currently0 (1 standard drink = 0.6 oz pure alcohol)PHQ-2AnswerDate Recorded Patient Health Questionnaire-2 Pgpsn74508/14/2024Humiliation, Afraid, Rape, and Kick questionnaireAnswerDate RecordedWithin the [...] week06/15/2025How often do you attend rastafari or jew services?Never06/15/2025Do you belong to any clubs or organizations such as rastafari groups, unions, fraternal or athletic groups, or school groups?No06/15/2025How often do you attend meetings of the clubs or organizations you belong to?Never06/15/2025re you , , , , never , or living with a partner?Xywtobyjh53/04/2025UDIT-C AnswerDate RecordedQ1: How often do you have [...] medical care, and heating?Not hard at all06/29/2025 [employer] [place] [employer] - Occupational Stress Questionnaire AnswerDate RecordedDo you feel stress - tense, restless, nervous, or anxious, or unable to sleep at night because yourmind is troubled all the time - these days? Only a uzogue8006/15/2025HC UtilitiesAnswerDate RecordedIn the past 12 months has [...] were you homeless or living in a fpc (including now)?No06/29/2025Hunger Vital SignAnswerDate Recorded Within the past 12 months, you worried that your food would run out before you got the money to buymore.Never true06/29/2025Within the past 12 months, the food you bought just didn't last and you didn't have money to get more.Never true 06/29/2025Sex and Gender InformationValueDate RecordedSex Assigned at BirthMale 04/08/2025 7:15 AM EDTLegal WxsYlni8902/07/2022 10:15 PM EDTGender IdentityMale 04/08/2025 7:15 AM EDTSexual OrientationHeterosexual or Aofwergk74/28/2025 7:15 AM EDT Last Filed Vital Signs Vital SignReadingTime TakenCommentsBlood Fposbguy574/6807/22/2025 2:32 PM EST Vjjey957107/22/2025 2:26 PM ZSBXwpxkdhdpca83.9 ??C (96.6 ??F)07/01/2025 4:16 PM ESTRespiratory Yfop657909/04/2024 2:07 PM ESTOxygen Tsfkkcllwj81%07/22/2025 2:26 PM ESTroom air at restInhaled Oxygen Concentration--Qqwycr12.3 kg (155 lb) 07/22/2025 2:26 PM BHLZrkyeu844.1 cm (5' 5 )07/22/2025 2:26 PM ESTBody Mass Index25.7907/22/2025 2:26 PM EST Plan of Treatment DateTypeDepartmentCare Team (Latest Contact Info)Zsxuyluwpdx14/12/2026 1:30 PM ESTHospital Encounter [facility] Main Operating Room [address] [place] [phone] Chris Andre MD [address] [place] [address] 08/23/2025 1:30 PM EST - 08/23/2025 5:00 PM ESTSurgery [facility] Main Operating Room [address] [place] [phone] Chris Andre MD [address] [place] [address] ENDARTERECTOMY, FEMORAL WITH POSSIBLE FEM TO POP YYXGQB3209/21/2025 11:00 AM EST Follow-Up [facility] Nephrology [address] [place] [address] Batsheva Beckwith MD [address] [facility] [address] [facility] [place] [address] 10/21/2025 1:00 PM EDTAppointment [facility] CT Imaging [address] [place] [address] NamePriorityAssociated DiagnosesDate/TimeENDARTERECTOMY, FEMORAL Peripheral arterial occlusive disease Encounter for pre-operative examination 08/23/2025 1:30 PM ESTHealth MaintenanceDue DateLast DoneCommentsCT Colonography 1953FIT-DNA1953FIT1953Medicare Annual Wellness (AWV)1955 Owvcrcrwrtrkv1953dult Ctjscaj8204/28/1975Zoster Vaccines (1 of 2)2003 COVID-19 Vaccine ( - 2024- season), 11/08/2020, 10/19/2020epression Auqprwzib92/10/20248727AMKK84Fall Risk Moaozuhkp42/20/62102108/31/20242286Quopqkrzkfs88/20/89238808/31/2024, 06/30/2025, 06/21/2021olorectal Cancer Ifitgxsjo72/20/2035Pneumococcal Vaccine: 50+ Years Phgdfeeax27/23/2020, 08/27/2019Influenza GtpezxbTmvuppteg07/08/2025, 05/23/2021, 08/03/2020HIB VaccinesAged OutNo longer eligible based [...] ProblemsRecent ProgressPatient-Stated?Author Blood Pressure < 140/90 Blood Eyjrourr418/68(07/22/2025 2:32 PM EST)Cy Child RN Medical Devices ImplantedTypeAreaManufacturerDevice IdentifierShelf Expiration DateModel / Serial / LotGraft,Thin-Wall,8x80cm,70cm - [id number] - [id number] Implanted:Qty: 1 on 06/07/2025 by [facility]: Desirae [id number] / [id number] / N/A Procedures Procedure NamePriorityDate/TimeAssociated DiagnosisCommentsXR TRANSFER OF OUTSIDE VBZXIKpbcbdq76/11/2025 12:[address] TRANSFER OF OUTSIDE BYGSHOculvgb93/11/2025 12:00 AM EST GRSMgqjbci39/24/2025 1:47 PM EST Lower GI bleed BASIC METABOLIC RMJXZFcjggpb24/24/2025 1:47 PM EST Lower GI bleed BASIC METABOLIC NRIUQICCO00/20/2025 4:17 PM EST DIAGNOSTIC KVMRBZKIBUOCpvfuca23/20/2025 2:36 PM EST BLOOD GAS, VENOUSPending Nihfstpph35/20/2025 11:28 AM EST POCT GLUCOSE METER UNSOLICITED QMVEGGZSctuxje09/20/2025 9:23 AM EST HEMOGLOBIN AND HEMATOCRIT, BLOODPending Jcdsmfrig34/20/2025 6:51 AM EST BASIC METABOLIC PANELSTAT Add-on07/01/2025 6:00 AM EST LIGHT GREEN ROFAufambq29/20/2025 6:00 AM EST EXTRA TJOCJDomxatt75/20/2025 6:00 AM EST POCT GLUCOSE METER UNSOLICITED BOTOPLAWvttptf38/19/2025 8:10 PM EST POCT GLUCOSE METER UNSOLICITED CHXCECTXboxoal18/19/2025 4:08 PM EST POCT GLUCOSE METER UNSOLICITED EMLIVSUCurdzwk61/19/2025 3:46 PM EST POCT GLUCOSE METER UNSOLICITED RSZUJRLVxpjtrz67/19/2025 3:24 PM EST POCT GLUCOSE METER UNSOLICITED EUWOLPZQsiipbe96/19/2025 3:01 PM EST DIAGNOSTIC DOPMJIXXAMJOtryhsy33/19/2025 2:25 PM EST POCT GLUCOSE METER UNSOLICITED SXYKJPPPanhbvc76/19/2025 1:23 PM EST OUUTPDMECRBCVJ19/18/2025 11:10 PM EST WOAIBJHKEMEHNW55/18/2025 5:47 PM EST HEMOGLOBIN AND HEMATOCRIT, EHRAHGYJW26/18/2025 9:18 AM EST TRANSFUSE RED BLOOD AHMPUFfefdsy79/18/2025 5:50 AM ESTCBC WITH AUTO DIFFERENTIAL STAT108/29/2024 5:45 AM EST CBC AND ZDJNXYNXJXGWNtuoaul18/18/2025 5:45 AM EST COMPREHENSIVE METABOLIC ZAQCESiwbpjh99/18/2025 5:45 AM EST TRANSFUSE RED BLOOD RWKWHEghpxdy47/18/2025 3:00 AM ESTPREPARE RBCRoutine 06/29/2025 1:40 AM EST TYPE AND EDXEROVBYS59/18/2025 12:33 AM EST HEMOGLOBIN AND HEMATOCRIT, SRNEMJVBN53/18/2025 12:33 AM EST CTA ABDOMEN PELVIS W IV JZUPTLQLUKRM17/17/2025 9:14 PM EST POCT OCCULT BLOOD PATYLSMHZ04/17/2025 7:15 PM EST CBC WITH AUTO LNDCYPQIJTXLXCST92/17/2025 6:39 PM EST COMPREHENSIVE METABOLIC SHPEVYXVC99/17/2025 6:39 PM EST CBC AND QRMRDGTPXYNRLJKC84/17/2025 6:39 PM EST HIGH SENSITIVITY TROPONIN ISTAT108/26/2024 4:40 PM EST CTA AORTA AND BILATERAL ILIOFEMORAL RUNOFF W IV MWJNMTBJITZH83/15/2025 4:[address] CERVICAL SPINE WO IV BGVKPWUGNWFL82/15/2025 4:[address] HEAD WO IV LULEJLPOWTFB57/15/2025 4:39 PM EST XR HAND 3+ VIEWS UUXXPIUR97/15/2025 3:45 PM EST CBC WITH AUTO WCFLUCDXLZYAWEHM65/15/2025 2:45 PM EST CK TOTAL AND CKMBSTAT Add-on06/26/2025 2:45 PM EST PBNVJXOB78/15/2025 2:45 PM EST PROTIME-UQWIJTJ7706/26/2025 2:45 PM EST HIGH SENSITIVITY TROPONIN ISTA06/26/2025 2:45 PM EST COMPREHENSIVE METABOLIC KAXVWTEAY11/15/2025 2:45 PM EST CBC AND RPHRHDXUKVJLDFGX27/15/2025 2:45 PM EST XR CHEST 1 TABZSKIG78/15/2025 2:20 PM EST XR PELVIS 1-2 AYNHLUGMN01/15/2025 2:20 PM EST XR HAND 3+ VIEWS WECLHLQY27/15/2025 2:03 PM EST PROTIME-QJWMfnvfgw44/14/2025 3:29 PM EST Peripheral arterial occlusive disease Encounter for pre-operative examination AMLIYrdqhvy49/14/2025 3:29 PM EST Peripheral arterial occlusive disease Encounter for pre-operative examination OQIHwgwgvo25/14/2025 3:29 PM EST Chronic kidney disease, unspecified CKD stage SPOMHIAVPIJcxmfpz29/14/2025 3:29 PM EST Chronic kidney disease, unspecified CKD stage QNMJTHNLXClowlqp82/14/2025 3:29 PM EST Chronic kidney disease, unspecified CKD stage BASIC METABOLIC PSJTVOxsjzcd38/14/2025 3:29 PM EST Chronic kidney disease, unspecified CKD stage MAGNESIUMPending Iwfcwocyb16/08/2025 4:47 AM EST POCT GLUCOSE METER UNSOLICITED PWDUTLYUssotjr88/07/2025 10:12 PM EST MAGNESIUMPending Mmlnuojik92/07/2025 5:07 AM EST BASIC METABOLIC PANELPending Etwdwyevj64/07/2025 5:07 AM EST CBCPending Ianorprja10/07/2025 5:07 AM EST VANCOMYCIN TIMEDPending Bhrkmcvtz95/06/2025 4:31 AM EST MAGNESIUMPending Fjijrxsfp79/06/2025 4:31 AM EST BASIC METABOLIC PANELPending Cwlkrtovb06/06/2025 4:31 AM EST CBCPending Ktmflwvsp11/06/2025 4:31 AM EST VANCOMYCIN CRBJKHpxql90/05/2025 9:11 PM EST IXKEURBSNNcouctw31/05/2025 5:08 AM EST BASIC METABOLIC MWKZEXbdadjf10/05/2025 5:08 AM EST MWMQumpnjk57/05/2025 5:[address] HEAD WO IV EZGHCSVPMTEH84/04/2025 7:57 PM EST CBC WITH AUTO LQMDTYLFLKONCQIL42/04/2025 7:37 PM EST LACTIC ACID WITH 4 HOUR ZISTZHOPCN93/04/2025 7:37 PM EST BASIC METABOLIC FUFNWUKEP41/04/2025 7:37 PM EST CBC AND NPQTUKJVFDHHEYAF10/04/2025 7:37 PM EST BLOOD DEUTHSVZVAE53/04/2025 7:37 PM EST BLOOD JTCKJNUQGZD75/04/2025 7:37 PM EST WOUND QFQWARFNDVV30/04/2025 5:59 PM EST PREPARE MDSIwftkij41/30/2025 7:53 AM EDT VASC LOWER EXTREMITY ARTERIAL DUPLEX BYPASS GRAFT DLZZZCrwhhvq33/29/2025 9:51 AM EDT LIGHT GREEN HLUXatcvmc77/29/2025 3:56 AM EDT EXTRA LALRHMhwkttq96/29/2025 3:56 AM EDT CBCPending Lhclwxdbf76/29/2025 3:56 AM EDT RZFNjnykyz89/28/2025 4:11 AM EDT CSDTMRGWRDDlnlryw13/28/2025 4:11 AM EDT ZDEWYEVPFMsgchgm11/28/2025 4:11 AM EDT BASIC METABOLIC HKOMWIfxenci07/28/2025 4:11 AM EDT HNDPHJOXPCQNCU42/27/2025 8:18 PM EDT EKJQHEMWGEYFI83/27/2025 8:18 PM EDT BASIC METABOLIC HVKZNASDY19/27/2025 8:18 PM EDT NVIIXUA0406/07/2025 8:18 PM EDT INVASIVE VASCULAR VPQCJILNLGqxlodh69/27/2025 6:16 PM EDT Lower extremity pain, bilateral Severe claudication Encounter for pre-operative examination POCT ACTIVATED CLOTTING TIME UNSOLICITED RKYSXGDCqjykhg73/27/2025 5:44 PM EDT HISTOLOGY - TISSUE QLTEYudmdlh47/27/2025 5:44 PM EDT Lower extremity pain, bilateral Severe claudication Encounter for pre-operative examination ABG COMPLETE UNSOLICITED SNFITBRYefxqor80/27/2025 5:43 PM EDT ND AN ELECTIVE ENDOTRACHEAL RIHJPLCymuxkd40/27/2025 3:09 PM EDT ENDARTERECTOMY, OCVDULK5106/07/2025 2:51 PM EDT Lower extremity pain, bilateral Severe claudication Encounter for pre-operative examination ND BYPASS W/VEIN FEMORAL-FFVYVCZVN31/27/2025 2:51 PM EDT Lower extremity pain, bilateral Severe claudication Encounter for pre-operative examination ANESTHESIA ARTERIAL LINE KHULNKYVDHmhuvoc36/27/2025 12:38 PM EDT POCT GLUCOSE METER UNSOLICITED MSCXFNOBmkxvgm34/27/2025 9:57 AM EDT BASIC METABOLIC EQVQIMzsmajk35/20/2025 11:59 AM EDT Hyperkalemia PTH, EQPSUDVtwxaov49/15/2025 2:54 PM EDT Kidney disease, chronic, stage IV (GFR 15-29 ml/min) ([facility]/HCC) Essential hypertension Hyperkalemia VITAMIN D 25 CWNXDMTZjvhsbf05/15/2025 2:54 PM EDT Kidney disease, chronic, stage IV (GFR 15-29 ml/min) (CMS/HCC) Essential hypertension Hyperkalemia YOJSEUMIMXXfajpiq26/15/2025 2:54 PM EDT Kidney disease, chronic, stage IV (GFR 15-29 ml/min) ([facility]/HCC) Essential hypertension Hyperkalemia GGVENNYEIBoaxiwm41/15/2025 2:54 PM EDT Kidney disease, chronic, stage IV (GFR 15-29 ml/min) ([facility]/HCC) Essential hypertension Hyperkalemia WUWXyfzxgg37/15/2025 2:54 PM EDT Kidney disease, chronic, stage IV (GFR 15-29 ml/min) ([facility]) Essential hypertension Hyperkalemia BASIC METABOLIC TVWVSElyncwf10/15/2025 2:54 PM EDT Kidney disease, chronic, stage IV (GFR 15-29 ml/min) ([facility]) Essential hypertension Hyperkalemia CREATININE, URINE, FUZSGFQtvqskp26/15/2025 2:54 PM EDT Kidney disease, chronic, stage IV (GFR 15-29 ml/min) ([facility]) Essential hypertension Hyperkalemia MICROALBUMIN, URINE, BUZSMKMstqcac58/15/2025 2:54 PM EDT Kidney disease, chronic, stage IV (GFR 15-29 ml/min) ([facility]) Essential hypertension Hyperkalemia URINALYSIS WITH FELOEKRUYHBSqamrmv75/15/2025 2:54 PM EDT Kidney disease, chronic, stage IV (GFR 15-29 ml/min) ([facility]) Essential hypertension Hyperkalemia PREPARE ILEWAPG19/13/2025 4:02 PM EDT TYPE AND HVCYTBXyqtrnj40/13/2025 2:48 PM EDT Severe claudication Encounter for pre-operative examination DAQHNvnffth64/13/2025 2:48 PM EDT Lower extremity pain, bilateral Severe claudication Encounter for pre-operative examination PROTIME-NUFIlxaklo16/ 2:48 PM EDT Lower extremity pain, bilateral Severe claudication Encounter for pre-operative examination BASIC METABOLIC DXQHQAppmqdm65/13/2025 2:48 PM EDT Lower extremity pain, bilateral Severe claudication Encounter for pre-operative examination COGBqdwxzk27/13/2025 2:48 PM EDT Lower extremity pain, bilateral Severe claudication Encounter for pre-operative examination MRSA/MSSA DNA XLLZMLujvgrj87/13/2025 2:48 PM EDT Lower extremity pain, bilateral Severe claudication Encounter for pre-operative examination CORONARY BYPASS GRAFT FWTHZXtkwchf83/30/2025 12:47 PM EDT Reduced ejection fraction concurrent with and due to acute heart failure (CMS/HCC) CORONARY NFLHQQBVLUCAcuivbs21/30/2025 12:47 PM EDT Reduced ejection fraction concurrent with and due to acute heart failure (CMS/HCC) ECG 12-COKDSvmmfta99/30/2025 8:08 AM EDT from Last 3 Months Results * XR transfer of outside films (07/22/2025 12:05 AM EST)Specimen (Source) Anatomical Location / LateralityCollection Method / VolumeCollection Time Received Time Narrative IMAGING - 07/22/2025 2:56 PM EST This order has been auto-finalized and does not contain a result. Authorizing ProviderResult TypeResult StatusZaid Vinod MDIMG XR PROCEDURESFinal ResultPerforming OrganizationAddressCity/State/ZIP CodePhone Number IMAGING * CT transfer of outside films (07/22/2025 12:00 AM EST)Specimen (Source) Anatomical Location / LateralityCollection Method / VolumeCollection Time Received Time Narrative IMAGING - 07/22/2025 2:55 PM EST This order has been auto-finalized and does not contain a result. Authorizing ProviderResult TypeResult StatusZaid Vniod MDIMG CT PROCEDURESFinal ResultPerforming OrganizationAddressCity/State/ZIP CodePhone Number IMAGING * (ABNORMAL) CBC (07/05/2025 1:47 PM EST) Only the most recent of10 resultswithin the time period is included. ComponentValueRef RangeTest MethodAnalysis TimePerformed AtPathologist Signature Auto WBC4.414.00 - 10.60 10*3/uL07/05/2025 2:05 PM [facility] ([facility]) RBC3.46(L)4.20 - 5.70 10*6/uL07/05/2025 2:05 PM [facility] ([facility]) Fogcivcget48.1(L)13.0 - 17.0 g/dL07/05/2025 2:05 PM [facility] ([facility])Qngczpanrd95.3(L)39.0 - 50.0 %07/05/2025 2:05 PM [facility] ([facility])MCV93.482.0 - 98.0 fL07/05/2025 2:05 PM [facility] ([facility])MCH 29.227.0 - 33.0 pg07/05/2025 2:05 PM [facility] ([facility])MCHC31.3(L) 32.0 - 35.0 g/dL07/05/2025 2:05 PM [facility] ([facility])RDW15.1(H)11.5 - 15.0 %07/05/2025 2:05 PM [facility] ([facility])Jesxuiykm129(L)150 - 400 10*3/uL07/05/2025 2:05 PM [facility] ([facility])Specimen (Source) Anatomical Location / LateralityCollection Method / VolumeCollection Time Received TimeBloodVenous blood specimen / UnknownVenipuncture / Unknown 07/05/2025 1:47 PM EST07/05/2025 1:54 PM EST Narrative Authorizing ProviderResult TypeResult StatusKyu Sammy Newsome MDLAB BLOOD ORDERABLESFinal ResultPerforming OrganizationAddressCity/State/ZIP CodePhone Number [facility] ([facility]) [address] [place] [address] * (ABNORMAL) Basic metabolic panel (07/05/2025 1:47 PM EST) Only the most recent of13 resultswithin the time period is included. ComponentValueRef RangeTest MethodAnalysis TimePerformed AtPathologist Signature Csyjbg180875 - 145 mmol/L109/04/2024 2:18 PM [facility] ([facility]) Potassium4.83.5 - 5.1 mmol/L109/04/2024 2:18 PM [facility] ([facility]) Npodeyfj853(H)98 - 107 mmol/L109/04/2024 2:18 PM [facility] ([facility])CO2 2421 - 31 mmol/L109/04/2024 2:18 PM [facility] ([facility])SAZ305 - 25 mg/dL07/05/2025 2:18 PM [facility] ([facility])Creatinine1.45(H)0.70 - 1.30 mg/dL07/05/2025 2:18 PM [facility] ([facility])Owhfbin8857 - 100 mg/dL07/05/2025 2:18 PM [facility] ([facility])Calcium8.68.6 - 10.3 mg/dL 07/05/2025 2:18 PM [facility] ([facility])Anion Gap97 - 20 mmol/L 07/05/2025 2:18 PM [facility] ([facility])eGFR51.2(L)>60.0 mL/min/1.73m*2 07/05/2025 2:18 PM [facility] ([facility])Comment:[facility]???s estimated glomerular filtration rate (eGFR) will [...] affect any one group of individuals. BUN/Creatinine Ratio15.211/ 2:18 PM [facility] ([facility])Specimen (Source)Anatomical Location / LateralityCollection Method / VolumeCollection TimeReceived TimeBloodVenous blood specimen / UnknownVenipuncture / Unknown 07/05/2025 1:47 PM EST07/05/2025 1:53 PM EST Narrative Authorizing ProviderResult TypeResult StatusKyu Sammy Newsome MD[facility] BLOOD ORDERABLESFinal ResultPerforming OrganizationAddressCity/State/ZIP CodePhone Number [facility] ([place]) [address] [place] [address] * Diagnostic Colonoscopy (07/01/2025 2:36 PM EST)Anatomical [...] on 07/01/25 Attending Physician: ??Christie Horton MD Motorcycle Technician: ??Maria Eugenia Dodd MD Procedure Details Informed [...] AtPathologist SignaturepH, Ven7.28(L)7.31 - 7.41108/31/2024 11:[address] [facility] RESPIRATORY THERAPYpCO2, Gxo1641 - 50 mmHg 07/01/2025 11:[address] [facility] RESPIRATORY THERAPYpO2, Ven26(L)35 - 45 mmHg 07/01/2025 11:[address] [facility] RESPIRATORY THERAPYO2 Sat, Ven34.0(LL)65.0 - 75.0 %07/01/2025 11:[address] [facility] RESPIRATORY THERAPYHCO3, Flemas13.2mmol/L 07/01/2025 11:[address] [facility] RESPIRATORY THERAPYOxyhemoglobin, Skkams21.3% 07/01/2025 11:[address] [facility] RESPIRATORY THERAPYpH Venous Temp Adjusted7.28(L) 7.31 - 7.4111/ 11:[address] [facility] RESPIRATORY THERAPYpCO2 Venous Temp Cmedymhw2149 - 50 mmHg07/01/2025 11:[address] [facility] RESPIRATORY THERAPYpO2 Venous Temp Axyaoqxb65(L)35 - 45 mmHg07/01/2025 11:[address] [facility] RESPIRATORY BRUYETKAngdhpfovhs81.0??07/01/2025 11:[address] [facility] RESPIRATORY THERAPY Specimen (Source)Anatomical Location / LateralityCollection Method / Volume Collection TimeReceived TimeBloodVenous blood specimen / UnknownVenipuncture / Ytfyxcs4107/01/2025 11:28 AM EST07/01/2025 11:38 AM EST Narrative Authorizing ProviderResult TypeResult StatusFrench CEE BLOOD ORDERABLESFinal ResultPerforming OrganizationAddressCity/State/ZIP CodePhone Number [facility] RESPIRATORY THERAPY [address] [place] [address], * POCT glucose meter (07/01/2025 9:23 AM EST) Only the most recent of9 resultswithin the time period is included. ComponentValueRef RangeTest MethodAnalysis TimePerformed AtPathologist Signature Glucose YSD5573 - 105 mg/dL07/01/2025 9:34 AM [facility] ([facility]) Comment:jdlugolSpecimen (Source)Anatomical Location / LateralityCollection Method / VolumeCollection TimeReceived TimeBloodCapillary blood specimen / Jqtpciq3007/01/2025 9:23 AM EST07/01/2025 9:34 AM EST Narrative [facility]) - 07/01/2025 9:34 AM EST Waived Testing in the ED is performed under the ED CLIA certificate #[id number]. Authorizing ProviderResult TypeResult StatusFrench CEE BLOOD ORDERABLESFinal ResultPerforming OrganizationAddressCity/State/ZIP CodePhone Number [facility]) [address] [place] [address] * (ABNORMAL) Hemoglobin and hematocrit, blood (07/01/2025 6:51 AM EST) Only the most recent of3 resultswithin the time period is included. ComponentValueRef RangeTest MethodAnalysis TimePerformed AtPathologist Signature Fecihsuqam35.3(L)13.0 - 17.0 g/dL07/01/2025 7:16 AM [facility] ([facility])Elglhtsxhi59.8(L)39.0 - 50.0 %07/01/2025 7:16 AM [facility] ([facility])Specimen (Source)Anatomical Location / LateralityCollection Method / VolumeCollection TimeReceived TimeBloodVenous blood specimen / Unknown Venipuncture / Fzoqxwc2107/01/2025 6:51 AM EST07/01/2025 6:56 AM EST Narrative Authorizing ProviderResult TypeResult StatusChris Andre MDSAINT JOHN [facility] BLOOD ORDERABLES Final ResultPerforming OrganizationAddressCity/State/ZIP CodePhone Number [facility]) [address] [place] [phone] * Light Green Top (07/01/2025 6:00 AM EST) Only the most recent of2 resultswithin the time period is included. ComponentValueRef RangeTest MethodAnalysis TimePerformed AtPathologist Signature Extra TubeHold for add-ons.07/01/2025 8:01 AM [facility] ([facility]) Comment:Auto resulted.Specimen (Source)Anatomical Location / Laterality Collection Method / VolumeCollection TimeReceived TimeBloodVenous blood specimen / Ahodguu9807/01/2025 6:00 AM EST07/01/2025 6:57 AM EST Narrative Authorizing ProviderResult TypeResult StatusFrench Newsome MDSA[facility] BLOOD ORDERABLESFinal ResultPerforming OrganizationAddressCity/State/ZIP CodePhone Number [facility]) [address] [place] [address] * Diagnostic Colonoscopy (06/30/2025 2:25 PM EST)Anatomical [...] on 06/30/25 Attending Physician: ??Kortney Gandhi MD Motorcycle Technician: ??None Procedure Details Informed consent was obtained [...] included. ComponentValueRef RangeTest MethodAnalysis TimePerformed AtPathologist Signature Krlwlyrsgk27.5(L)13.0 - 17.0 g/dL06/30/2025 12:47 AM [facility] ([employer])Specimen (Source)Anatomical Location / LateralityCollection Method / VolumeCollection TimeReceived TimeBloodVenous blood specimen / Unknown Venipuncture / Jfaeaud9506/29/2025 11:10 PM EST06/30/2025 12:13 AM EST Narrative Authorizing ProviderResult TypeResult Kuldip CEE BLOOD ORDERABLES Final ResultPerforming OrganizationAddressCity/State/ZIP CodePhone Number [facility] ([facility]) [address] [place] [address] * Transfuse RBC (06/29/2025 8:09 AM EST) Only the most recent of2 resultswithin the time period is included. Narrative Authorizing ProviderResult TypeResult StatusIdrees Vivek WOODARD TRANSFUSION ORDERABLESFinal Result * (ABNORMAL) CBC auto differential (06/29/2025 5:45 AM EST) Only the most recent of4 resultswithin the time period is included. ComponentValueRef RangeTest MethodAnalysis TimePerformed AtPathologist Signature Auto WBC4.904.00 - 10.60 10*3/uL06/29/2025 6:07 AM [facility] ([facility]) RBC3.01(L)4.20 - 5.70 10*6/uL06/29/2025 6:07 AM [facility] ([employer]) Hemoglobin8.9(L)13.0 - 17.0 g/dL06/29/2025 6:07 AM [facility] ([employer]) Nuiebvlmfv26.6(L)39.0 - 50.0 %06/29/2025 6:07 AM [facility] ([employer]) MCV95.082.0 - 98.0 fL06/29/2025 6:07 AM [facility] ([employer])MCH29.627.0 - 33.0 pg06/29/2025 6:07 AM [facility] ([employer])MCHC31.1(L)32.0 - 35.0 g/dL06/29/2025 6:07 AM [facility] ([employer])RDW15.3(H)11.5 - 15.0 % 06/29/2025 6:07 AM [facility] ([facility])Neutrophils %75.1(H)40.0 - 72.0 %06/29/2025 6:07 AM [facility] ([facility])Lymphocytes %12.7(L)20.0 - 45.0 %06/29/2025 6:07 AM [facility] ([facility])Monocytes %7.35.0 - 12.0 % 06/29/2025 6:07 AM [facility] ([facility])Eosinophils %3.30.0 - 6.0 % 06/29/2025 6:07 AM [facility] ([facility])Basophils %0.80.0 - 1.0 % 06/29/2025 6:07 AM [facility] ([facility])Neutrophils Absolute3.681.60 - 7.60 10*3/uL06/29/2025 6:07 AM [facility] ([facility])Lymphocytes Absolute 0.62(L)1.20 - 4.00 10*3/uL06/29/2025 6:07 AM [facility] ([facility]) Monocytes Absolute0.360.10 - 1.00 10*3/06/29/2025 6:07 AM [facility] ([facility])Eosinophils Absolute0.160.00 - 0.50 10*3/06/29/2025 6:07 AM [facility] ([facility])Basophils Absolute0.040.00 - 0.20 10*3/06/29/2025 6:07 AM [facility] ([facility])Uowuwpaxb394(L)150 - 400 10*3/06/29/2025 6:07 AM [facility] ([facility])nRBC %0.00 %06/29/2025 6:07 AM [facility] ([facility])Immature Granulocytes %0.80.0 - 1.0 %06/29/2025 6:07 AM [facility] ([facility])Immature Granulocytes Absolute0.040.00 - 0.20 10*3/06/29/2025 6:07 AM [facility] ([facility])Specimen (Source)Anatomical Location / LateralityCollection Method / VolumeCollection TimeReceived TimeBloodVenous blood specimen / UnknownVenipuncture / Edehbly3206/29/2025 5:45 AM EST06/29/2025 5:59 AM EST Narrative Authorizing ProviderResult TypeResult StatusIdrees Vivek CEE BLOOD ORDERABLESFinal ResultPerforming OrganizationAddressCity/State/ZIP CodePhone Number [facility] ([facility]) [address] [place] [address] * (ABNORMAL) Comprehensive metabolic panel (06/29/2025 5:45 AM EST) Only the most recent of3 resultswithin the time period is included. ComponentValueRef RangeTest MethodAnalysis TimePerformed AtPathologist Signature Xcgqbo699926 - 145 mmol/L108/29/2024 6:30 AM [facility] ([facility]) Potassium5.13.5 - 5.1 mmol/L108/29/2024 6:30 AM [facility] ([facility]) Rsjdcqls496(H)98 - 107 mmol/L108/29/2024 6:30 AM [facility] ([facility])CO2 2121 - 31 mmol/L108/29/2024 6:30 AM [facility] ([facility])Anion Uhh948 - 20 mmol/L108/29/2024 6:30 AM [facility] ([facility])SAZ448 - 25 mg/dL 06/29/2025 6:30 AM [facility] ([facility])Creatinine1.63(H)0.70 - 1.30 mg/dL06/29/2025 6:30 AM [facility] ([facility])BUN/Creatinine Ratio14.1 06/29/2025 6:30 AM [facility] ([facility])Baxgygy7380 - 100 mg/dL 06/29/2025 6:30 AM [facility] ([facility])Calcium8.68.6 - 10.3 mg/dL 06/29/2025 6:30 AM [facility] ([facility])AST49(H)13 - 39 U/L108/29/2024 6:30 AM [facility] ([facility])ALT (SGPT)457 - 52 U/L108/29/2024 6:30 AM [facility] ([facility])Alkaline Lersokfxeyk497(H)34 - 104 U/L108/29/2024 6:30 AM [facility] ([facility])Total Protein5.9(L)6.0 - 8.3 g/dL06/29/2025 6:30 AM [facility] ([facility])Albumin3.53.5 - 5.7 g/dL06/29/2025 6:30 AM [facility] ([facility])Total Bilirubin1.1(H)0.3 - 1.0 mg/dL06/29/2025 6:30 AM [facility] ([facility])eGFR44.5(L)>60.0 mL/min/1.73m* 6:30 AM [facility] ([facility])Comment:[facility]???s estimated glomerular filtration rate (eGFR) will [...] CEE BLOOD ORDERABLESFinal ResultPerforming OrganizationAddressCity/State/ZIP CodePhone Number [facility] ([facility]) [address] [place] [address] * Prepare RBC: 2 Units (06/29/2025 1:40 AM EST) Only the most recent of3 resultswithin the time period is included. ComponentValueRef RangeTest MethodAnalysis TimePerformed AtPathologist Signature PRODUCT [id number] BLOOD BANKUnit [id number] BLOOD BANKUnit [facility] BLOOD BANKUnit [facility] BLOOD BANKCrossmatch InterpretationCOMADVANCED CARE [facility] BLOOD BANKDispense StatusTRLOVELACE RE[facility]ABILITATION [facility] BLOOD BANKBlood Expiration [id number] BLOOD BANKProduct Blood [id number] BLOOD BANKUnit [id number] BLOOD BANK PRODUCT [id number] BLOOD BANKUnit [id number] BLOOD BANKUnit [facility] BLOOD BANKUnit [facility] BLOOD BANKCrossmatch InterpretationCOMPUTMC BLOOD BANKDispense StatusTRLOVELACE [facility] BLOOD BANKBlood Expiration [id number] BLOOD BANKProduct Blood [id number] BLOOD BANKSpecimen (Source)Anatomical Location / LateralityCollection Method / VolumeCollection TimeReceived TimeOther 06/29/2025 1:40 AM EST Narrative Authorizing ProviderResult TypeResult StatusIdrees Vivek [facility] PRODUCT ORDERABLESFinal ResultPerforming OrganizationAddressCity/State/ZIP Code Phone Number [facility] BLOOD BANK * Type and screen (06/29/2025 12:33 AM EST) Only the most recent of2 resultswithin the time period is included. ComponentValueRef RangeTest MethodAnalysis TimePerformed AtPathologist Signature ABO HexbzyvjW82/18/2025 2:[address] [facility] BLOOD BANKRh HqilTGS2306/29/2025 2:[address] [facility] BLOOD BANKAb RptlKJF5306/29/2025 2:[address] [facility] BLOOD BANKSpecimen (Source)Anatomical Location / LateralityCollection Method / VolumeCollection TimeReceived TimeBloodVenous blood specimen / UnknownVenipuncture / Unknown 06/29/2025 12:33 AM EST06/29/2025 12:58 AM EST Narrative Authorizing ProviderResult TypeResult StatusNasheed Moisés [facility] BLOOD BANK TEST ORDERABLESFinal ResultPerforming OrganizationAddressCity/State/ZIP Code Phone Number [facility] BLOOD BANK * CTA Abdomen Pelvis W [...] disease. 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 Superior mesenteric artery: ??Patent. Atherosclerotic [...] disease. Celiac artery: Patent. Atherosclerotic disease causing ijzw-js-drxuaezlmgttda stenosis. Superior mesenteric artery: Patent. Atherosclerotic disease [...] signed: Bryson Grant. Authorizing ProviderResult TypeResult StatusNasheed [facility] MDIMG CT PROCEDURES Final Result * (ABNORMAL) POCT occult blood stool manually resulted (06/28/2025 7:15 PM EST) ComponentValueRef RangeTest MethodAnalysis TimePerformed AtPathologist SignatureFecal Occult BloodPositiveQC Pass/FailPassedQC LOT #[id number] Expiration Date04/07Specimen (Source)Anatomical Location / LateralityCollection Method / VolumeCollection TimeReceived JyewBisxq69/17/2025 7:15 PM EST Narrative Authorizing ProviderResult TypeResult StatusNased [facility] HospitalOINT [facility] CARE TEST ENTER/EDIT ORDERABLESFinal Result * High Sensitivity Troponin I (06/26/2025 4:40 PM EST) Only the most recent of2 resultswithin the time period is included. ComponentValueRef RangeTest MethodAnalysis TimePerformed AtPathologist Signature High Sensitivity Troponin I8<20 ng/L108/26/2024 5:13 PM ESTLOVELACE [facility] LAB ([facility])Specimen (Source)Anatomical Location / LateralityCollection Method / VolumeCollection TimeReceived TimeBloodVenous blood specimen / Unknown Venipuncture / Eosorjo1206/26/2025 4:40 PM EST06/26/2025 4:43 PM EST Narrative Authorizing ProviderResult TypeResult StatusAndresarah CEE BLOOD ORDERABLESFinal ResultPerforming OrganizationAddressCity/State/ZIP CodePhone Number [facility] HOSPITAL LAB ADAN) Marylou Devine [place], [place] [id number] * CTA Aorta And Bilateral Iliofemoral Runoff [...] nonemergent basis. Approved by:Manohar Ríos08/26/2024 6:13 PM. Misha Galindo,have reviewed the image(s) and agree with the findings inthis report. Electronically signed: Misha Ferrara. Authorizing ProviderResult TypeResult StatusAndrea Brenda [facility] CT PROCEDURES Final Result * CT cervical spine wo IV contrast (06/26/2025 4:39 PM EST)Anatomical Region LateralityModalitySpine, C-spineComputed TomographySpecimen (Source)Anatomical Location / LateralityCollection Method / VolumeCollection TimeReceived Time 06/26/2025 5:12 PM EST Impressions 06/26/2025 5:28 PM EST No evidence of acute fracture or traumatic malalignment involving the cervical spine. Approved by:Manohar Ríos08/26/2024 5:21 PM. Misha Glaindo,have reviewed the image(s) and agree with the [...] Electronically signed: Misha Ferrara. Authorizing ProviderResult TypeResult StatusAndsunshine MONREAL CT PROCEDURES Final Result * CT head [...] Misha Ferrara. Authorizing ProviderResult TypeResult StatusAndresarah Gutierrez [facility] CT PROCEDURES Final Result * XR hand [...] MethodAnalysis TimePerformed AtPathologist Signature aPTT28.725.0 - 35.0 Wkedavf4906/26/2025 3:15 PM [facility] ([place]) Comment:Clinical significance of the APTT is questionable in the presence of heparin.Specimen (Source)Anatomical Location / LateralityCollection Method / VolumeCollection TimeReceived TimeBloodVenous blood specimen / Unknown Venipuncture / Gjhqnbq8306/26/2025 2:45 PM EST06/26/2025 2:53 PM EST Narrative Authorizing ProviderResult TypeResult StatusBrayan CEE BLOOD ORDERABLESFinal ResultPerforming OrganizationAddressCity/State/ZIP CodePhone Number [facility] ([place]) [address] [place] [address] * (ABNORMAL) Protime-INR (06/26/2025 2:45 PM EST) Only the most recent of3 resultswithin the time period is included. ComponentValueRef RangeTest MethodAnalysis TimePerformed AtPathologist Signature Wqaeghs87.412.3 - 14.8 Ygkrfgd1906/26/2025 3:15 PM [facility] ([place]) INR1.12(H)0.90 - 1.10108/26/2024 3:15 PM [facility] ([place])Comment: [facility] RECOMMENDED INR FOR WARFARIN THERAPY CONDITION ?INR [...] TimeReceived TimeBloodVenous blood specimen / UnknownVenipuncture / Gjxrrab3806/26/2025 2:45 PM EST06/26/2025 2:53 PM EST Narrative Authorizing ProviderResult TypeResult StatusAndsunshine CEE BLOOD ORDERABLESFinal ResultPerforming OrganizationAddressCity/State/ZIP CodePhone Number [facility] ([facility]) [address] [place] [address] * (ABNORMAL) CK total and CKMB (06/26/2025 2:45 PM EST)ComponentValueRef Range Test MethodAnalysis TimePerformed AtPathologist SignatureTotal CK158.030.0 - 223.0 U/L108/26/2024 4:02 PM [facility] ([facility])CK-MB Index2.2(H)0.0 - 1.9108/26/2024 4:02 PM [facility] ([facility])CK-MB3.50.0 - 5.0 ng/mL 06/26/2025 4:02 PM [facility] ([facility])Specimen (Source)Anatomical Location / LateralityCollection Method / VolumeCollection TimeReceived Time BloodVenous blood specimen / UnknownVenipuncture / Ydfriep9406/26/2025 2:45 PM EST06/26/2025 2:54 PM EST Narrative Authorizing ProviderResult TypeResult StatusAndsunshine CEE BLOOD ORDERABLESFinal ResultPerforming OrganizationAddressCity/State/ZIP CodePhone Number [facility]) [address] [place] [address] * XR chest 1 view (06/26/2025 2:20 [...] Jose Avila. Authorizing ProviderResult TypeResult StatusBrayan Gutierrez MDG XR PROCEDURES Final Result * XR pelvis [...] Electronically signed: Jose Avila. Authorizing ProviderResult TypeResult Chrystal MONREAL XR PROCEDURES Final Result * Phosphorus (06/25/2025 3:29 PM EST) Only the most recent of4 resultswithin the time period is included. ComponentValueRef RangeTest MethodAnalysis TimePerformed AtPathologist Signature Phosphorus3.02.5 - 5.0 mg/dL06/25/2025 4:43 PM ESTLINCOL[facility] ([place]) Specimen (Source)Anatomical Location / LateralityCollection Method / Volume Collection TimeReceived TimeBloodVenous blood specimen / UnknownVenipuncture / Nmhjmgo7906/25/2025 3:29 PM EST06/25/2025 3:49 PM EST Narrative Authorizing ProviderResult TypeResult Jack CEE BLOOD ORDERABLES Final ResultPerforming OrganizationAddressCity/State/ZIP CodePhone Number [facility] ([facility]) [address] [place] [address] * Magnesium (06/25/2025 3:29 PM EST) Only the most recent of8 resultswithin the time period is included. ComponentValueRef RangeTest MethodAnalysis TimePerformed AtPathologist Signature Magnesium1.91.9 - 2.7 mg/dL06/25/2025 4:43 PM [facility] ([facility]) Specimen (Source)Anatomical Location / LateralityCollection Method / Volume Collection TimeReceived TimeBloodVenous blood specimen / UnknownVenipuncture / Ipqgywf5306/25/2025 3:29 PM EST06/25/2025 3:49 PM EST Narrative Authorizing ProviderResult TypeResult StatusZujaimie Tang [facility] BLOOD ORDERABLES Final ResultPerforming OrganizationAddressCity/State/ZIP CodePhone Number [facility]) [address] [place] [address] * (ABNORMAL) Vancomycin Timed (06/17/2025 4:31 AM EST) Only the most recent of2 resultswithin the time period is included. ComponentValueRef RangeTest MethodAnalysis TimePerformed AtPathologist Signature Vancomycin Timed16.7(L)20.0 - 40.011 5:31 AM [facility])Specimen (Source)Anatomical Location / LateralityCollection Method / VolumeCollection TimeReceived TimeBloodVenous blood specimen / Unknown Venipuncture / Pynarof6306/17/2025 4:31 AM EST06/17/2025 4:56 AM EST Narrative Authorizing ProviderResult TypeResult StatusChris Andre [facility] BLOOD ORDERABLES Final ResultPerforming OrganizationAddressCity/State/ZIP CodePhone Number [facility]) [address] [place] [address] * Lactic acid with 4 hour reflex (06/15/2025 7:37 PM EST)ComponentValueRef Range Test MethodAnalysis TimePerformed AtPathologist SignatureLactate0.80.5 - 2.2 mmol/L108/15/2024 8:09 PM [facility])Specimen (Source) Anatomical Location / LateralityCollection Method / VolumeCollection Time Received TimeBloodVenous blood specimen / UnknownVenipuncture / Unknown 06/15/2025 7:37 PM EST11/11/2024 7:44 PM EST Narrative Authorizing ProviderResult TypeResult StatusDamaris Gee PA-CLAB BLOOD ORDERABLESFinal ResultPerforming OrganizationAddressCity/State/ZIP CodePhone Number [facility] ([facility]) [address] [place] [id number] * Blood culture (06/15/2025 7:37 PM EST) Only the most recent of2 resultswithin the time period is included. ComponentValueRef RangeTest MethodAnalysis TimePerformed AtPathologist Signature Blood CultureNo growth at 5 days JOSE 06/20/2025 8:01 PM [facility] ([facility])Specimen (Source)Anatomical Location / LateralityCollection Method / VolumeCollection TimeReceived TimeBlood Venous blood specimen / UnknownVenipuncture / Gigxkge1606/15/2025 7:37 PM EST 06/15/2025 7:44 PM EST Narrative Authorizing ProviderResult TypeResult StatusDamaris Gee PA-CLAB MICROBIOLOGY - GENERAL ORDERABLESFinal ResultPerforming OrganizationAddressCity/State/ZIP CodePhone Number [facility] ([facility]) [address] [place] [address] * (ABNORMAL) Wound culture (06/15/2025 5:59 PM EST)ComponentValueRef RangeTest MethodAnalysis TimePerformed AtPathologist SignatureWound CultureLight Growth Enterobacter cloacae complex(A) JOSE 06/17/2025 10:36 AM [facility] ([facility])Comment:Gram Stain ResultNo polymorphonuclear leukocytes seen06/17/2025 10:36 AM [facility] ([facility])Gram Stain ResultModerate Gram negative hoydhvt4406/17/2025 10:36 AM EST [facility] ([facility])Specimen (Source)Anatomical Location / Laterality Collection Method / VolumeCollection TimeReceived TimeSwab (Leg)06/15/2025 5:59 PM EST06/15/2025 7:44 PM EST Narrative [facility] ([facility]) - 06/17/2025 10:36 AM EST With [...] or oral therapy options. Authorizing ProviderResult TypeResult StatusBelivory CIFUENTES MICROBIOLOGY - GENERAL ORDERABLESFinal ResultPerforming OrganizationAddressCity/State/ZIP CodePhone Number [facility] ([facility]) [address] [place] [address] * [facility] Lower Extremity Arterial Duplex Bypass [...] with no significant stenosis Authorizing ProviderResult TypeResult StatusMary DAVIS CV VASCULAR PROCEDURESFinal Result * Invasive vascular procedure (06/07/2025 6:16 PM EDT)Anatomical Region LateralityModalityOtherSpecimen (Source)Anatomical Location / Laterality Collection Method / VolumeCollection TimeReceived Time Narrative 06/07/2025 7:49 PM EDT This order was resulted via OpNote or Post Procedure Note. If those notes are not displayed in this report, please refer to the Notes tab. Authorizing ProviderResult TypeResult StatusMunier Nazzkaren MDCV INVASIVE VASCULAR PROCEDURESFinal Result * (ABNORMAL) POCT activated clotting time (06/07/2025 5:44 PM EDT)ComponentValue Ref RangeTest MethodAnalysis TimePerformed AtPathologist SignatureActivated Clotting Time JRK327(H)82 - 152 sec06/10/2025 12:10 AM [facility] ([place])Specimen (Source)Anatomical Location / LateralityCollection Method / VolumeCollection TimeReceived TimeBloodVenous blood specimen / Unknown 06/07/2025 5:44 PM EDT1 12:10 AM EDT Narrative Authorizing ProviderResult TypeResult StatusChris CEE POINT OF CARE TEST DOCKED DEVICE UNSOLICITED RESULTSFinal ResultPerforming OrganizationAddress City/State/ZIP CodePhone Number [facility] ([place]) [address] [place] [address] * Histology - tissue exam (06/07/2025 5:44 PM EDT)ComponentValueRef RangeTest MethodAnalysis TimePerformed AtPathologist SignatureCase ReportSurgical Pathology ?Case: [id number] ? Authorizing Provider: ??Chris Andre MD ?Collected: ? 06/07/2025 1744 ? Ordering Location: ? [facility] Main Operating Room ?? Received: ?06/08/2025 0806 ? Pathologist: ? Pop Salinas MD ? Specimen: ?Groin, Right ??Common femoral artery , Profunda Artery Plaque and others ? 06/11/2025 8:24 AM [facility] ([facility])Final DiagnosisA. Right common femoral artery and profunda artery plaque, endarterectomy: - Calcified atherosclerotic plaque with osteoid metaplasia.06/11/2025 8:24 AM [facility] ([facility]) at 0824 EDTClinical InformationPost-Op Diagnoses M79.604, M79.605 - Lower extremity pain, bilateral [ICD-10-CM] I73.9 - Severe claudication [ICD-10-CM] Z01.818 - Encounter for pre-operative examination [ICD-10-CM] 06/11/2025 8:24 AM [facility] ([facility])Gross DescriptionA. Groin. Received in formalin labeled You Garcia, Groin, Tissue, Right Common femoral artery, Profunda Artery Plaque and others, 5 wells-white, soft to partially calcified fragments of soft tissue measuring 3.7 x 2.4 x 1.3 cm in aggregate. One of the fragments is tubular, measuring 2.2 cm in length and up to 0.9 cm in diameter with 40-50% luminal narrowing. Concession Cashier sections have been submitted in one cassette following decalcification. The remainder of the specimen is contained within its formalin container. Rom Iglesias, PGY-210 8:24 AM [facility] ([facility])Microscopic DescriptionMicroscopic examination performed.06/11/2025 8:24 AM [facility] ([facility])Specimen (Source)Anatomical Location / LateralityCollection Method / VolumeCollection TimeReceived TimeTissue (Groin)06/07/2025 5:44 PM EDT 06/08/2025 8:06 AM EDTComment:Pre-op diagnosis: Lower extremity pain, bilateral [M79.604, M79.605] Severe claudication [I73.9] Encounter for pre-operative examination [Z01.818] Narrative Authorizing ProviderResult TypeResult StatusMunier Jes CEE PATHOLOGY ORDERABLESFinal ResultPerforming OrganizationAddressCity/State/ZIP CodePhone Number [facility] ([facility]) [address] [place] [address] * (ABNORMAL) Arterial Blood Gas Complete (06/07/2025 5:43 PM EDT)ComponentValue Ref RangeTest MethodAnalysis TimePerformed AtPathologist SignaturepH, Arterial 7.417.35 - 7.451 5:43 PM [facility] RESPIR[facility]ORY THERAPYpCO2, Pinxujfx91 35 - 45 mmHg06/07/2025 5:43 PM [facility] RESPIR[facility]ORY THERAPYpO2, Vtybhezi85(L)83 - 108 mmHg06/07/2025 5:43 PM [facility] RESPIRATORY THERAPYHCO3, Bziqgofk78.5 21.0 - 28.0 mmol/L1 5:43 PM [facility] RESP[facility] THERAPYO2 Sat, Zprbnmgu20.594.0 - 100.0 %06/07/2025 5:43 PM [facility] RESPIRATORY THERAPYBase Excess, Arterial-0.9-2.0 - 3.0 mmol/L1 5:43 PM [facility] RESPIRATORY THERAPYCalcium Ionized, Arterial1.49(H)1.13 - 1.32 mmol/L1 5:43 PM [facility] RESPIR[facility]ORY THERAPYSodium, Hgkbilss084549 - 146 mmol/L1 5:43 PM [facility] RESPIR[facility]ORY THERAPYPotassium, Arterial4.43.4 - 5.2 mmol/L1 5:43 PM [facility] RESPIR[facility]ORY THERAPYChloride, Eihtgunq327(H)98 - 107 mmol/L 06/07/2025 5:43 PM [facility] RESPIRATORY THERAPYGlucose, Kkvidihh623(H)65 - 95 mg/dL06/07/2025 5:43 PM [facility] RESPIRATORY THERAPYLactate, Arterial1.100.36 - 1.39 mmol/L1 5:43 PM [facility] RESPIRATORY THERAPYHematocrit, Arterial 31(L)37 - 50 %06/07/2025 5:43 PM [facility] RESPIRATORY THERAPYHemoglobin, Ytsuvtgu51.4g/dL06/07/2025 5:43 PM [facility] RESPIRATORY THERAPYOxyhemoglobin, Axrfsrwz80.694.0 - 97.0 %06/07/2025 5:43 PM [facility] RESPIRATORY THERAPY Methemoglobin, Arterial0.80.0 - 1.5 %06/07/2025 5:43 PM [facility] RESPIRATORY THERAPYCarboxyhemoglobin, Arterial2.1%06/07/2025 5:43 PM [facility] RESPIRATORY THERAPYDeoxyhemoglobin, Arterial2.4%06/07/2025 5:43 PM [facility] RESPIRATORY QBVHIBCMlclhxjgacl34.0??06/07/2025 5:43 PM [facility] RESPIRATORY THERAPYPF Ratio06/07/2025 5:43 PM [facility] RESPIRATORY THERAPYComment:C^Incalculable A-yDs13806/07/2025 5:43 PM [facility] RESPIRATORY THERAPYComment:C^Incalculable paO2/hXA56806/07/2025 5:43 PM [facility] RESPIRATORY THERAPYComment:C^Incalculable Specimen (Source)Anatomical Location / LateralityCollection Method / Volume Collection TimeReceived TimeBloodArterial blood specimen / Ecziwdp8506/07/2025 5:43 PM EDT1 5:43 PM EDT Narrative Authorizing ProviderResult TypeResult StatusMunier Jes CEE BLOOD ORDERABLES Final ResultPerforming OrganizationAddressCity/State/ZIP CodePhone Number [facility] RESPIRATORY THERAPY [address] [place] [address], * ND AN ELECTIVE ENDOTRACHEAL AIRWAY (06/07/2025 3:09 PM EDT) Narrative Judith Malloy MD - 06/07/2025 3:09 PM EDT Judith Malloy MD 06/07/2025 3:49 PM Airway Date/Time: 06/07/2025 3:09 PM Reason: elective Airway not difficult General Information and Staff Patient location during procedure: OR Anesthesiologist: Judith Malloy MD Resident/SENIOR ANDROID SOFTWARE ENGINEER/CAA: Young Carcamo MD Performed: resident/SENIOR ANDROID SOFTWARE ENGINEER/MATHIEU Patient Condition Indications for airway management: anesthesia [...] attempted: 0 Authorizing ProviderResult TypeResult StatusJudith Malloy [facility] ORDERABLESFinal Result * ANESTHESIA ARTERIAL LINE PLACEMENT (06/07/2025 12:38 PM EDT) Judith Martin MD - 06/07/2025 12:38 PM EDT Judith [...] Skin prep, Sterile drape, VSS. Staffing Performed: resident/SENIOR ANDROID SOFTWARE ENGINEER/CAA Anesthesiologist: Judith Malloy MD Resident/SENIOR ANDROID SOFTWARE ENGINEER: Young Carcamo MD Performed by: Young Carcamo MD Authorized by: Judith Malloy MD ?? Authorizing ProviderResult TypeResult Yamil Malloy MDAPEACEHEALTH ORDERABLESEdited Result - Final * (ABNORMAL) Urinalysis with microscopic (05/26/2025 2:54 PM EDT)ComponentValue Ref RangeTest MethodAnalysis TimePerformed AtPathologist SignatureColor, Urine Light-YellowColorless, Yellow, Light-Roibnt2405/26/2025 4:25 PM [facility] ([facility])Clarity, BweblCwtxiZyiax01/15/2025 4:25 PM [facility] ([facility])Specific [place], Urine1.004(L)1.010 - 1.8679505/26/2025 4:25 PM [facility] ([facility])pH, Urine5.55.0 - 8.0 pH05/26/2025 4:25 PM [facility] ([facility])Leukocytes, RndrzLmfjfeyvTccumeyr92/15/2025 4:25 PM EDT [facility] ([facility])Nitrite, FajxyYoywvwdjOhfnlmbi52/15/2025 4:25 PM EDT [facility] ([facility])Protein, UrineNegativeNegative mg/dL05/26/2025 4:25 PM [facility] ([facility])Glucose, UrineNormalNormal mg/dL05/26/2025 4:25 PM [facility] ([facility])Bilirubin, UrineNegativeNegative 05/26/2025 4:25 PM [facility] ([facility])Ketones, UrineNegativeNegative mg/dL05/26/2025 4:25 PM [facility] ([facility])Urobilinogen, Urine NormalNormal mg/dL05/26/2025 4:25 PM [facility] ([facility])Blood, Urine BkatsrnsRsusjviv26/15/2025 4:25 PM [facility] ([facility])RBC, UrineNone SeenNone Seen, 0-2 /HPF05/26/2025 4:25 PM [facility] ([facility])WBC, UrineNone SeenNone Seen, 0-2 /HPF05/26/2025 4:25 PM [facility] ([facility])Squamous Epithelial, UrineOccasionalNone Seen, Occasional, Few /LPF 05/26/2025 4:25 PM [facility] ([facility])Specimen (Source)Anatomical Location / LateralityCollection Method / VolumeCollection TimeReceived Time UrineUrine specimen obtained by clean catch procedure / UnknownNon-blood Collection / Jafuriz0005/26/2025 2:54 PM EDT1 3:48 PM EDT Narrative Authorizing ProviderResult TypeResult StatusZubia Tang CEE URINE ORDERABLES Final ResultPerforming OrganizationAddressCity/State/ZIP CodePhone Number [facility] ([facility]) [address] [place] [address] * (ABNORMAL) Microalbumin, urine, random (05/26/2025 2:54 PM EDT)ComponentValue Ref RangeTest MethodAnalysis TimePerformed AtPathologist SignatureMicroalb, Ur <1mg/dL05/26/2025 4:34 PM [facility] ([facility])Microalb/Creat Ratio 05/26/2025 4:34 PM [facility] ([facility])Comment:Unable to calculate Creatinine, Ur24.0(L)26 - 299 mg/dL05/26/2025 4:34 PM [facility] ([facility])Specimen (Source)Anatomical Location / LateralityCollection Method / VolumeCollection TimeReceived TimeUrineUrine specimen obtained by clean catch procedure / UnknownNon-blood Collection / Vfhmkyv3005/26/2025 2:54 PM EDT 05/26/2025 3:48 PM EDT Narrative Authorizing ProviderResult TypeResult StatusBatsheva CEE URINE ORDERABLES Final ResultPerforming OrganizationAddressCity/State/ZIP CodePhone Number [facility]) [address] [place] [address] * (ABNORMAL) Creatinine, urine, random (05/26/2025 2:54 PM EDT)ComponentValueRef RangeTest MethodAnalysis TimePerformed AtPathologist SignatureCreatinine, Ur 24.0(L)26 - 299 mg/dL05/26/2025 4:34 PM [facility])Specimen (Source)Anatomical Location / LateralityCollection Method / VolumeCollection TimeReceived TimeUrineUrine specimen obtained by clean catch procedure / UnknownNon-blood Collection / Becluav6305/26/2025 2:54 PM EDT1 3:48 PM EDT Narrative Authorizing ProviderResult TypeResult StatusBatsheva CEE URINE ORDERABLES Final ResultPerforming OrganizationAddressty/State/ZIP CodePhone Number [facility]) [address] [place] [address] * Vitamin D 25 hydroxy (05/26/2025 2:54 PM EDT)ComponentValueRef RangeTest MethodAnalysis TimePerformed AtPathologist SignatureVit D, 25-Vpnhqgb83.030.0 - 80.0 ng/mL05/26/2025 4:48 PM [facility] ([facility])Comment:>80.0 Toxicity possibleSpecimen (Source)Anatomical Location / LateralityCollection Method / VolumeCollection TimeReceived TimeBloodVenous blood specimen / UnknownVenipuncture / Gsvljfy7105/26/2025 2:54 PM EDT1 3:52 PM EDT Narrative Authorizing ProviderResult TypeResult StatusZujaimie Tang CEE BLOOD ORDERABLES Final ResultPerforming OrganizationAddressCity/State/ZIP CodePhone Number [facility] ([facility]) [address] [place] [address] * PTH, intact (05/26/2025 2:54 PM EDT)ComponentValueRef RangeTest MethodAnalysis TimePerformed AtPathologist TaluvvcztRGT1820 - 88 pg/mL05/26/2025 7:13 PM EDT [facility] ([facility])Specimen (Source)Anatomical Location / Laterality Collection Method / VolumeCollection TimeReceived TimeBloodVenous blood specimen / UnknownVenipuncture / Vduxmiw9005/26/2025 2:54 PM EDT1 3:52 PM EDT Narrative Authorizing ProviderResult TypeResult StatusZujaimie Tang CEE BLOOD ORDERABLES Final ResultPerforming OrganizationAddressCity/State/ZIP CodePhone Number [facility] ([facility]) [address] [place] [phone] * MRSA/MSSA DNA Nasal (05/24/2025 2:48 PM EDT)ComponentValueRef RangeTest Method Analysis TimePerformed AtPathologist SignatureMSSA DNANegativeNegative 05/25/2025 1:50 PM [facility])MRSA DNANegativeNegative 05/25/2025 1:50 PM [facility])Specimen (Source)Anatomical Location / LateralityCollection Method / VolumeCollection TimeReceived Time SwabNasal structure / UnknownNon-blood Collection / Oebuyyw1905/24/2025 2:48 PM EDT1 3:24 PM EDT Narrative [facility]) - 05/25/2025 1:50 PM [...] not preclude nasal colonization. Authorizing ProviderResult TypeResult StatusMunier Jes CEE MICROBIOLOGY - GENERAL ORDERABLESFinal ResultPerforming OrganizationAddressCity/State/ZIP Code Phone Number [facility] ([place]) [address] [place] [address] * CORONARY ANGIOGRAPHY, CORONARY BYPASS GRAFT STUDY (05/11/2025 12:47 PM EDT) Anatomical RegionLateralityModalityOtherSpecimen (Source)Anatomical Location / LateralityCollection Method / VolumeCollection TimeReceived Time Narrative 05/11/2025 1:11 PM EDT Cardiovascular Laboratory Report FINAL IMPRESSIONS: ?? Severe, three-vessel mcgrath coronary artery disease There are 2 out [...] micropuncture kit was upsized to a 6 Belarusian 11 cm sheath. Bilateral selective coronary angiography [...] have been documented. Authorizing ProviderResult TypeResult StatusEhab Tolliver [facility] CARDIAC CATH PROCEDURESFinal Result * Electrocardiogram, 12-lead (05/11/2025 8:08 AM EDT)ComponentValueRef RangeTest MethodAnalysis TimePerformed AtPathologist SignatureVentricular Wxin89LJBCQ MUSEAtrial Ezqi62VPFOJ MUSEPR Usivgmwu112adXU MUSEQRS HWJWKJIA305hmGP MUSEQT Pfihqesa366lwFM MUSEQTC CALCULATION(BAZETT)466msGE MUSEP Ugir31emcpztkIP MUSE G-Unqx-73nbascfkLT MUSET Wave Plqr23wcqjqnxNC MUSESpecimen (Source)Anatomical Location / LateralityCollection Method / [...] on 05/11/2025 11:35:47 PM Authorizing ProviderResult TypeResult Statusab Tolliver MDECG ORDERABLESFinal ResultPerforming OrganizationAddressCity/State/ZIP CodePhone Number GE MUSE from Last 3 Months Insurance Advance Directives * Full Code (Latest Code Status on File) Date ActivatedDate AidkejxzpqrHsnruspx18/18/2025 4:23 AM07/01/2025 8:53 PM * Full Code Date ActivatedDate FqfyyxktbfzXgnvkelq50/4/2025 9:45 PM06/19/2025 9:53 PM * Full Code Date ActivatedDate VsjqgbijtjqUhczewll76/27/2025 5:10 PM10 9:30 PM * Full Code Date ActivatedDate InactivatedComments05/11/2025 12:48 PM05/11/2025 8:03 PM Care Teams Team MemberRelationshipSpecialtyStart DateEnd Date Susan Watson MD [facility] [place] [address] PCP - GeneralNurse Practitioner10/13/24
--- OUTSIDE RECORDS SUMMARY | 2025-07-30 15:47 | XMS_ITS | Clinical Summary ---
Author Organization [facility] Healthcare Address [address] [place] [address] Care Team Providers Care Weatherstrip Machine Operator Name Role Phone Jose Beckford MD Primary Care Provider [phone] Cherelle Coronado NP Unavailable [phone] Allergies No known active allergies Medications MedicationSigDispense QuantityRefillsLast FilledStart DateEnd DateStatus albuterol HFA 90 mcg/act inhaler Inhale 2 puffs every 4 (four) hours if needed for wheezingActive nitroglycerin (Nitrostat) 0.4 MG SL tablet Indications:Coronary artery disease involving barrow coronary artery of barrow heart without angina pectorisPlace 1 tablet (0.4 [...] morning. Take with meals. 90 capsule tive Awcwpqaqkky-Ydhpubvoy-Syykgp (Trelegy Ellipta) 100-62.5-25 MCG/ACT aerosol powder Indications:Chronic obstructive pulmonary disease, unspecified COPD type (HCC) Inhale 1 puff Daily Rinse mouth after use. Inhale 1 puff Daily 180 each tive isosorbide mononitrate ER (Imdur) 60 MG 24 hr tablet Indications:Primary hypertension,Coronary artery disease involving barrow coronary artery of barrow heart without angina pectorisTake 1 tablet (60 mg) by mouth Daily Do not crush or chew. 90 tablet 5Active lisinopril 10 MG tablet Indications:Primary hypertensionTake 1 tablet (10 mg) by mouth Daily 90 tablet tive metoprolol tartrate (Lopressor) 50 MG tablet Indications:Primary hypertension,Coronary artery disease involving barrow coronary artery of barrow heart without angina pectorisTake 1 tablet (50 [...] tablet 5Active traZODone (Desyrel) 100 MG tablet Indications:EDTIH (generalized anxiety disorder),Recurrent major depression in partial remissionTake 1 tablet (100 mg) by mouth at bedtime 90 tablet 5Active Active Problems ProblemNoted DateDiagnosed DateChronic diastolic heart wwxjvsm7903/01/2025 Assessment & Plan (03/01/2025 7:08 AM EDT): Noted on ECHO: 02/18/2525 grade 3 Current meds: plavix, norvasc, imdur, raulito, b kelsy, Pulmonary yujntdedesko66/21/2025 Assessment & Plan (03/01/2025 7:09 AM EDT): Noted on ECHO from 02/18/25 pressure 46 Cervical zmmdlpocojm26/10/2025 Assessment & Plan (03/01/2025 7:10 AM EDT): Referred to Dr Chrery pain mgmt Xr 02/08/25 DDD mod, C5-C6 [...] Seems more muscle relatated Frequent falls06/17/2024Functional gait dehlcbbuikz69/06/2024 Assessment & Plan (06/22/2024 11:34 AM EST): [...] send referral today. Chronic obstructive pulmonary disease, pbdxtbvisxp88/31/2024 Assessment & Plan (03/01/2025 3:16 PM EDT): [...] recent exacerbations. Uses albuterol as needed. Primary /31/2024 Assessment & Plan (03/01/2025 7:08 AM EDT): [...] greater tuberosity of left humerus with routine racwzrl4909/19/2023oronary artery disease involving barrow coronary artery of barrow heart without angina enaolapm94/08/2024 Assessment & Plan (03/01/2025 7:08 AM EDT): Established with [facility] Cardiology Current meds: asa, amlodipine, statin, plavix, imdur, raulito, b kelsy, and prn nitro Assessment & Plan (11/19/2024 7:00 AM EDT): Established with [facility] Cardiology Current meds: asa, amlodipine, statin, plavix, imdur, raulito, b kelsy, and prn nitro Assessment & Plan (10/08/2024 5:49 PM EST): Current meds: plavix, amlodipine, statin, b kelsy, nitroglycerin prn No acute symptoms, cont with [facility] Cardiology Assessment & Plan (03/11/2024 2:27 PM EDT): S/p CABG. On ASA, BB, Imdur, plavix, statin Denies CP, SOB, palpitations. Following [facility] cardiology. Assessment & Plan (09/19/2023 5:32 PM EST): S/p CABG. On ASA, BB, Imdur, plavix, statin Denies CP, SOB, palpitations. Following [facility] cardiology. Mixed wgfgoqhihauhsy56/08/2024 Assessment & Plan (10/08/2024 7:11 AM EST): [...] Avoid NSAIDS. C/w current regimen. H/O: lung mpergl5809/19/2023Gastroesophageal reflux disease without esophagitis 09/19/2023 Assessment & [...] buspar, sertraline Pt's daughter is a pysch [employer], I have given daughter present today options [...] and neuropsych testing Atherosclerosis of arteries of zsxoaftyokj43/14/2013 Assessment & Plan (11/19/2024 7:00 AM EDT): Asa, plavix, statin Intermittent bmpbvvduvhuw39/14/4327Qewuegqx39/07/2012 Resolved Problems ProblemNoted DateDiagnosed DateResolved DateRecurrent major depression in partial suacxejnd18/4Recurrent major depressive disorder, in full vrdqehgan39 Assessment & Plan (10/08/2024 5:51 PM EST): [...] Seasonal, Quadrivalent, Preservative Free05/23/2021,08/03/2020Pfizer Purple Cap SARS-CoV-2 Ejnjgshikpw58/26/2021,11/08/2020,1Pneumococcal Conjugate PCV 13 08/27/2019Pneumococcal Polysaccharide CHPD136610/04/2019 Family History Medical HistoryRelationNameCommentsDiabetesMotherHeart diseaseMotherHypertension MotherDiabetesSisterRelationNameStatusCommentsFatherDeceasedMotherDeceasedSister x2 Social History Tobacco UseTypesPacks/DayYears UsedDateSmoking Tobacco: FormerCigarettesPassive Smoke Exposure: NeverSmokeless Tobacco: Never Tobacco Cessation:Counseling Given: Not Answered Alcohol UseStandard Drinks/WeekCommentsNever0 (1 standard drink = 0.6 oz pure alcohol)caffeine: 1-2 cups per qmsP1271 Health LiteracyAnswerDate RecordedHow often do you need [...] relatives?Once a week02/28/2025How often do you attend shinto or taoism services?Never02/28/2025Do you belong to any clubs or organizations such as shinto groups, unions, [employer] or athletic groups, or school groups?No 02/28/2025How often do you attend meetings of the clubs or organizations you belong to?Never02/28/2025re you , , , , never , or living with a partner?Luiyrzvuf22/20/2025UDIT-CAnswerDate Recorded Q1: How often do you have [...] heating?Not very hard02/28/2025PHQ-2AnswerDate RecordedPatient Health Questionnaire-2 Score0 03/11/2024[facility] [place] [facility] - Occupational Stress QuestionnaireAnswerDate RecordedDo you feel stress - tense, restless, nervous, or anxious, or unable to sleep at night because yourmind is troubled all the time - these days?To some huxhrn5702/28/2025Exercise Vital SignAnswerDate Recorded On average, how many [...] steady place to sleep or slept in [facility] (including now)?No07/22/2023Housing Stability Vital SignAnswerDate RecordedIn the last 12 months, was there a time when you were not able to pay the mortgage or rent on time?No02/28/2025In the past 12 months, how many times have you moved where you were living? At any time in the past 12 months, were you homeless or living in a jail (including now)?02/28/2025Sex and Gender InformationValueDate RecordedSex Assigned at BirthNot on fileLegal RsgZbjc1510/24/2022 10:05 PM EDTGender Identity Not on fileSexual OrientationNot on file Last Filed Vital Signs Vital SignReadingTime TakenCommentsBlood Kslyumtc831/6407 1:45 PM EDT Wehpw285003/01/2025 1:45 PM LRXHmvqlsashvw68.3 ??C (97.3 ??F)03/01/2025 1:45 PM EDTRespiratory Byda758603/01/2025 1:45 PM EDTOxygen Vdkcbpcgeo74%03/01/2025 1:45 PM EDTInhaled Oxygen Concentration--Czdwor77.6 kg (166 lb 9.6 oz)03/01/2025 1:45 PM WPYXfpolr193.7 cm (5' 8 )06/17/2024 1:13 PM ESTBody Mass Index25.33108/17/2023 1:13 PM EST Plan of Treatment Not on file Insurance Care Teams Team MemberRelationshipSpecialtyStart DateEnd Date Jose Beckford MD PCP - GeneralFamily Sovvtwbt62/29/24 Cherelle Coronado NP Nurse PractitionerFamily Nrsdbpnr47/29/24
--- OUTSIDE RECORDS SUMMARY | 2025-07-30 15:47 | XMS_ITS | Clinical Summary ---
Author Organization [facility] Address [address] [facility] [place] [address] Phone Care Team Providers Care Decontaminator Name Role Phone Unavailable Primary Care Provider Unavailabl e Social History Tobacco UseTypesPacks/DayYears UsedDateSmoking Tobacco: Never AssessedSex and Gender InformationValueDate RecordedSex Assigned at BirthNot on fileLegal Sex Male07/07/2022 9:17 AM ESTGender IdentityNot on fileSexual OrientationNot on file Plan of Treatment Not on file
--- OUTSIDE RECORDS SUMMARY | 2025-07-30 15:47 | XMS_ITS | Encounter Summary ---
Author Organization [facility] Address [address] [place] [address] Care Team Providers Care Treadle Cut Off Saw Operator Name Role Phone Susan Watson MD Primary Care Provider [phone] Encounter Details DateTypeDepartmentCare Team (Latest Contact Info)Eaojmbkylku22/16/2025Results Follow-Up [facility] Nephrology [address] [place] [phone] Batsheva Beckwith MD [address] [facility] [address] [facility] [place] [address] Urinalysis with microscopic, Microalbumin, urine, random, Creatinine, urine, random, Additional followed-up results: 6 Social History Tobacco UseTypesPacks/DayYears UsedDateSmoking Tobacco: FormerCigarettes Smokeless Tobacco: NeverAlcohol UseStandard Drinks/WeekCommentsNot Currently0 (1 standard drink = 0.6 oz pure alcohol)PHQ-2AnswerDate RecordedPatient Health Questionnaire-2 Ztzop65008/14/2024Humiliation, Afraid, Rape, and Kick questionnaireAnswerDate RecordedWithin the last year, have you been afraid of your partner or ex-partner?No06/29/2025Emotionally AbusedNot on file06/29/2025 Physically AbusedNot on file06/29/2025Sexually AbusedNot on file06/29/2025Social Connection and Isolation PanelAnswerDate RecordedIn a typical week, how many times do you talk on the phone with family, friends, or neighbors?More than three times a week06/15/2025How often do you get together with friends or relatives?More than three times a week06/15/2025How often do you attend taoism or protestant services?Never06/15/2025Do you belong to any clubs or organizations such as taoism groups, unions, fraternal or athletic groups, or school groups?No 06/15/2025How often do you attend meetings of the clubs or organizations you belong to?Never06/15/2025re you , , , , never , or living with a partner?Mwltghpbt67/04/2025UDIT-CAnswerDate Recorded Q1: How often do you have a drink containing alcohol?Never06/15/2025Q2: How many drinks containing alcohol do you have on a typical day when you are drinking? Patient does not drink06/15/2025Q3: How often do you have six or more drinks on one occasion?Never06/15/2025Overall Financial Resource Strain (CARDIA)AnswerDate RecordedHow hard is it for you to pay for the very basics like food, housing, medical care, and heating?Not hard at all06/29/2025[facility] [place] [facility] Occupational Health - Occupational Stress QuestionnaireAnswerDate RecordedDo you feel stress - tense, restless, nervous, or anxious, or unable to sleep at night because yourmind is troubled all the time - these days?Only a nmrqaf9706/15/2025 [facility] UtilitiesAnswerDate RecordedIn the past 12 months has the [place], gas, oil, or water [employer] threatened to shut off services in your home?No06/29/2025 TransportationAnswerDate RecordedIn the past 12 months, has lack of transportation kept you from medical appointments or from getting medications?No 06/29/2025In the past 12 months, has lack of transportation kept you from meetings, work, or from getting things needed for daily living?No06/29/2025 Housing Stability Vital SignAnswerDate RecordedIn the last 12 months, was there a time when you were not able to pay the mortgage or rent on time?No06/29/2025In the past 12 months, how many times have you moved where you were living?0 06/29/2025t any time in the past 12 months, were you homeless or living in a residential (including now)?No06/29/2025Hunger Vital SignAnswerDate RecordedWithin the past 12 months, you worried that your food would run out before you got the money to buymore.Never true06/29/2025Within the past 12 months, the food you bought just didn't last and you didn't have money to get more.Never true 06/29/2025Sex and Gender InformationValueDate RecordedSex Assigned at BirthMale 04/08/2025 7:15 AM EDTLegal QfbVsie5102/07/2022 10:15 PM EDTGender IdentityMale 04/08/2025 7:15 AM EDTSexual OrientationHeterosexual or Blhpkuzj2025 7:15 AM EDTdocumented as of this encounter Functional Status * AUDIT-C ScoreAnswerDate of VcyqzdklosVdnism344/04/2025 10:41 PM Sari Rogers * Alcohol UseQuestionAnswerDate of AssessmentAuthorQ1: How often do you have a drink containing alcohol?Never06/15/2025 10:41 PM Sari RogersQ2: How many drinks containing alcohol do you have on a typical day when you are drinking?Patient does not drink06/15/2025 10:41 PM Sari RogersQ3: How often do you have six or more drinks on one occasion?Never06/15/2025 10:41 PM Sari Rogers * QuestionAnswerDate of AssessmentAuthorTrouble falling or staying asleep, or sleeping too muchNot at all06/14/2025 2:37 PM Bambi Levin MAFeeling tired or having little energyNearly every day06/14/2025 2:37 PM Bambi Levin MA Poor appetite or overeatingNot at all06/14/2025 2:37 PM Bambi Levin MA Feeling bad about yourself - or that you are a failure or have let yourself or your family downNearly every day06/14/2025 2:37 PM Bambi Levin MATrouble concentrating on things, such as reading the newspaper or watching television Not at all06/14/2025 2:37 PM Bambi Levin, MAMoving or speaking so slowly that other people could have noticed? Or the opposite - being so fidgety or restless that you have been moving around a lot more than usual.Not at all 06/14/2025 2:37 PM Bambi Levin MA * QuestionAnswerDate of AssessmentAuthorLittle interest or pleasure in doing thingsNearly every day06/14/2025 2:37 PM Bambi Levin MAFeeling down, depressed, or hopelessNearly every day06/14/2025 2:37 PM Bambi Levin MA Patient Health Questionnaire-2 Vqwfv19808/14/2024 2:37 PM Bambi Levin MA * Calculated C-SSRS Risk Score (Lifetime/Recent)AnswerDate of AssessmentAuthorNo Risk Rauhkpbtw80/05/2025 12:12 AM Cy Cordon RN * Suicidal IdeationQuestionAnswerDate of AssessmentAuthor1. Wish to be (Lifetime)No06/29/2025 11:38 AM Brianne Dacosta RN2. Non-Specific Active Suicidal Thoughts (Lifetime)No06/29/2025 11:38 AM Brianne Dacosta RN * Suicidal BehaviorQuestionAnswerDate of AssessmentAuthorActual Attempt (Lifetime)No06/16/2025 12:12 AM Cy Cordon RNHas subject engaged in non-suicidal self-injurious behavior? (Lifetime)No06/16/2025 12:12 AM Cy Nur RNInterrupted Attempts (Lifetime)No06/16/2025 12:12 AM Cy Nur, RNAborted or Self-Interrupted Attempt (Lifetime)No 06/08/2025 4:43 AM Kaylee Robertson, RNPreparatory Acts or Behavior (Lifetime) No06/16/2025 12:12 AM Cy Cordon RN documented as of this encounter Plan of Treatment DateTypeDepartmentCare Team (Latest Contact Info)Ilfetcdnxxx71/12/2026 1:30 PM ESTHospital Encounter [facility] Main Operating Room [address] [place] [phone] Chris Adnre MD [address] [place] [phone] 08/23/2025 1:30 PM EST - 08/23/2025 5:00 PM ESTSurgery [facility] Main Operating Room [address] [place] [phone] Chris Andre MD [address] [place] [phone] ENDARTERECTOMY, FEMORAL WITH POSSIBLE FEM TO POP GCZPJO0209/21/2025 11:00 AM EST Follow-Up [facility] Nephrology [address] [place] [address] Batsheva Beckwith MD [address] [facility] [address] [facility] [place] [address] 10/21/2025 1:00 PM EDTAppointment [facility] CT Imaging [address] [place] [phone] NamePriorityAssociated DiagnosesDate/TimeENDARTERECTOMY, FEMORAL Peripheral arterial occlusive disease Encounter for pre-operative examination 08/23/2025 1:30 PM ESTdocumented as of this encounter Goals GoalPatient Goal TypeAssociated ProblemsRecent ProgressPatient-Stated?Author Blood Pressure < 140/90 Blood Dtsetayw672/68(07/22/2025 2:32 PM EST)Cy Child RNdocumented as of this encounter Results * (ABNORMAL) Basic metabolic panel (05/31/2025 11:59 AM EDT)ComponentValueRef RangeTest MethodAnalysis TimePerformed AtPathologist KxhkpxzpsRegjmb678919 - 145 mmol/L10/ 12:43 PM [facility])Potassium5.13.5 - 5.1 mmol/L1 12:43 PM [facility])Dykuaqxa004(H)98 - 107 mmol/L1 12:43 PM [facility])CB42592 - 31 mmol/L 05/31/2025 12:43 PM [facility])BUN36(H)7 - 25 mg/dL 05/31/2025 12:43 PM [facility])Creatinine1.97(H)0.70 - 1.30 mg/dL05/31/2025 12:43 PM [facility])Rsnwzem1531 - 100 mg/dL 05/31/2025 12:43 PM [facility])Calcium8.98.6 - 10.3 mg/dL 05/31/2025 12:43 PM [facility]Anion Xir257 - 20 mmol/L 05/31/2025 12:43 PM [facility])eGFR35.4(L)>60.0 mL/min/1.73m* 12:43 PM [facility]Comment:[facility]???s estimated glomerular filtration rate (eGFR) [...] disproportionately affect any one group of individuals.BUN/Creatinine Ratio18.310 12:43 PM [facility])Specimen (Source)Anatomical Location / LateralityCollection Method / VolumeCollection TimeReceived TimeBloodVenous blood specimen / Unknown Venipuncture / Yrtiqrf7905/31/2025 11:59 AM EDT1 12:13 PM EDT Narrative Authorizing ProviderResult TypeResult StatusZubia Tang CEE BLOOD ORDERABLES Final ResultPerforming OrganizationAddressCity/State/ZIP CodePhone Number [facility] [address] [place] [address] documented in this encounter Visit Diagnoses Diagnosis Hyperkalemia- Primary Hyperpotassemia Encounter for pre-operative examination- Primary Peripheral arterial occlusive disease Unspecified peripheral vascular disease Peripheral arterial occlusive disease Unspecified peripheral vascular disease Encounter for pre-operative examination documented in this encounter Care Teams Team MemberRelationshipSpecialtyStart DateEnd Date Susan Watson MD [facility] [place] [address] PCP - GeneralNurse Practitioner10/13/24documented as of this encounter
--- OUTSIDE RECORDS SUMMARY | 2025-07-30 15:47 | XMS_ITS | Patient Health Record ---
Author Organization [facility] Address [address] [place] [address] Support Name Relationship Address Phone LISETH GOLDSTEIN Emergency Contact [address] [place], [place] [address] KEL CASTILLO Guarantor Unknown [phone] Allergies No Known Allergies Reason For Referral No Information Social History Tobacco Use: Social History Observation Description Date Details (start date - stop date) Never Smoker NA - NA Smoking History Question Answer Notes Smoking Status NonSmoker Problems Problem Type SNOMED Code ICD Code Onset Dates Problem Status W/U Status Risk Notes Problem Other nondisplaced fracture of upper end of left humerus, subsequent encounter for fracture with routine healing (S42.295D)ActiveconfirmedProblemClosed fracture proximal humerus, greater tuberosity (091140605)Closed nondisplaced fracture of greater tuberosity of left humerus, initial encounter (S42.255A) ActiveconfirmedProblemTraumatic rupture of rotator cuff (disorder) (668060319) Traumatic complete tear of left rotator cuff, initial encounter (S46.012A)Active confirmedProblemClosed fracture of greater tuberosity of proximal left humerus (disorder) (58682189811194053)Closed nondisplaced fracture of greater tuberosity of left humerus with routine healing (S42.255D)Activeconfirmed Plan Of Treatment Pending Test Test Name Order Date MRI : Shoulder W/O Contrast Left - 66597 08/26/2023 Insurance Providers Payer Name Payer Address Payer Phone Subscriber Number Group Number Insured Name Patient Relationship to Insured Coverage Start Date Coverage End Date [facility] [address] [place] [address] [id number] Ayleen CASTILLO - patient is the insuredAs[facility] [place] [id number], BLANCAChristiano - patient is the insured Medical (General) History Medical History History ICD Code Asthma/COPD Lung DiseaseLung cancerHeart problems:High Blood PressureDepressionMental Illness:AnxietyKidney troubleSleep apneaCPAP Machine: YesSurgical History Surgery Date(Month/Year) lung-right lower lobe 1996 Triple bypass 2006
[2025-07-30 16:10] LABS: Hematocrit 30.8 % (42.0-54.0); Hemoglobin 9.5 g/dL (14.0-18.0); Immature Granulocytes Abs Auto 0.11 10^3/uL (0.00-0.03); Immature Granulocytes Pct Auto 1.3 % (0.0-0.5); Lymphocytes Absolute Auto 1.2 10^3/uL (1.2-3.8); Mean Corpuscular HGB Conc 30.8 g/dL (29.9-35.2); Mean Corpuscular Hemoglobin 29.2 pg (25.9-34.0); Mean Corpuscular Volume 94.8 fL (80.0-94.0); Platelet Count 151 10^3/uL (150-450); Red Blood Count 3.25 10^6/uL (4.70-6.10); White Blood Count 8.8 10^3/uL (4.0-11.0)
[2025-07-30 16:24] LABS: INR 1.06; Partial Thromboplastin Time 28.2 sec (22.3-36.2); Prothrombin Time 11.1 sec (9.0-11.6)
[2025-07-30 17:11] LABS: Glucose Urine UA NEGATIVE (NEGATIVE)
[2025-07-30 17:12] LABS: Anion Gap 3.2; Blood Urea Nitrogen 44.0 mg/dL (7.0-18.0); Calcium 8.9 mg/dL (8.5-10.1); Carbon Dioxide 30.8 mmol/L (21.0-32.0); Chloride 106 mmol/L (98-107); Estimated GFR (African America 29 (>=60 mL/min/1.73m^2); Estimated GFR (Non-African Ame 24 (>=60 mL/min/1.73m^2); Glucose 86 mg/dL (74-106); Potassium 5.0 mmol/L (3.5-5.1); Sodium 135 mmol/L (136-145)
[2025-07-30 17:26] LABS: Cast Seen? NONE SEEN #/LPF (NONE SEEN); Crystals Seen? None Seen #/HPF (None Seen)
== END 2025-07-30 15:41 | disposition home or self-care (01) ==
PROVIDERS: PCP Nurse Practitioner; Visit Provider Nurse Practitioner
DX: R04.0 Epistaxis (principal); N18.32 Chronic kidney disease, stage 3b; R31.29 Other microscopic hematuria; N18.4 Chronic kidney disease, stage 4 (severe); I12.9 Hypertensive chronic kidney disease with stage 1 through stage 4 chronic kidney disease, or unspecified chronic kidney disease
CPT/HCPCS: 36415; 80048; 81001; 85025; 85610; 85730

== ENCOUNTER 2025-08-04 12:00 | Outpatient (OUT) | payer MEDICARE, SELFPAY ==
--- OUTSIDE RECORDS SUMMARY | 2025-07-22 | XMS_ITS | Encounter Summary ---
Author Organization [facility] Address [address] [place] [address] Care Team Providers Care Manager Marketing Communication Name Role Phone Susan Watson MD Primary Care Provider [phone] Encounter Details DateTypeDepartmentCare Team (Latest Contact Info)Ljkkxifvwkh06/11/2025 - 07/22/2025 12:04 AM ESTHospital Encounter [facility] Radiology External Films [address] [place] [address] Discharge Disposition: Home or Self Care () Social History Tobacco UseTypesPacks/DayYears UsedDateSmoking Tobacco: FormerCigarettes2.525 1968 - 1993Smokeless Tobacco: CurrentChewAlcohol UseStandard Drinks/WeekComments Not Currently0 (1 standard drink = 0.6 oz pure alcohol)PHQ-2AnswerDate Recorded Patient Health Questionnaire-2 Cqgsv73808/14/2024Humiliation, Afraid, Rape, and Kick questionnaireAnswerDate RecordedWithin the [...] times a week06/15/2025How often do you attend taoist or evangelical services?Never06/15/2025Do you belong to any clubs or organizations such as taoist groups, unions, fraternal or athletic groups, or school groups?No06/15/2025How often do you attend meetings of the clubs or organizations you belong to?Never06/15/2025re you , , , , never , or living with a partner?Scuvmoqsy18/04/2025UDIT-C AnswerDate RecordedQ1: How often do you have [...] medical care, and heating?Not hard at all06/29/2025 [facility] of Occupational Health - Occupational Stress Questionnaire AnswerDate RecordedDo you feel stress - tense, restless, nervous, or anxious, or unable to sleep at night because yourmind is troubled all the time - these days? Only a tvspug9206/15/2025HC UtilitiesAnswerDate RecordedIn the past 12 months has the [employer], gas, oil, or water [employer] threatened to shut off services in your [...] Assigned at BirthMale 04/08/2025 7:15 AM EDTLegal KqtMhyu7502/07/2022 10:15 PM EDTGender IdentityMale 04/08/2025 7:15 AM EDTSexual OrientationHeterosexual or Wuivmdwb57/28/2025 7:15 AM EDTdocumented as of this encounter Medications at Time of Discharge MedicationSigDispense QuantityRefillsLast FilledStart DateEnd Date acetaminophen (Tylenol Extra Strength) 500 mg tablet Indications:Lower extremity pain, bilateralTake 2 tablets (1,000 mg) by mouth every 6 (six) hours if needed for moderate pain (4-7 pain score). 30 tablet albuterol 90 mcg/actuation inhaler INHALE 1 PUFF BY MOUTH EVERY 4 HOURS WCOIAH7212/02/2021 aspirin 81 mg EC tablet Take 1 [...] mouth in the morning and at bedtime. ynbtipsjfep-jnlmghsoj-gegtrfeh (Trelegy Ellipta) 100-62.5-25 mcg blister with device [...] chronic, stage IV (GFR 15-29 ml/min) ([facility]/HCC),HyperkalemiaTake 10 g by mouth 3 (three) times a week. 120 g 07/07/2025 traZODone (Desyrel) 100 mg tablet Take 1 tablet by mouth at bedtime.documented as of this encounter Plan of Treatment DateTypeDepartmentCare Team (Latest Contact Info)Lprovtgagop03/12/2026 1:30 PM ESTHospital Encounter [facility] Main Operating Room [address] [place] [phone] Chris Andre MD [address] [facility] [place] [address] 08/23/2025 1:30 PM EST - 08/23/2025 5:00 PM ESTSurgery [facility] Main Operating Room [address] [facility] [place] [address] Chris Andre MD [address] [place] [address] ENDARTERECTOMY, FEMORAL WITH POSSIBLE FEM TO POP HGWMCO9709/21/2025 11:00 AM EST Follow-Up [facility] [address] [facility] [place] [address] Batsheva Beckwith MD [address] [facility] [place] [address] 10/21/2025 1:[address]TApp[address]ment [facility] CT Imaging [address] [place] [address] NamePriorityAssociated DiagnosesDate/TimeENDARTERECTOMY, FEMORAL Peripheral arterial occlusive disease Encounter for pre-operative examination 08/23/2025 1:30 PM ESTdocumented as of this encounter Goals GoalPatient Goal TypeAssociated ProblemsRecent ProgressPatient-Stated?Author Blood Pressure < 140/90 Blood Lkgiylsn354/68(07/22/2025 2:32 PM EST)Cy Child, RNdocumented as of this encounter Procedures Procedure NamePriorityDate/TimeAssociated DiagnosisCommentsCT TRANSFER OF OUTSIDE AOIETAwcdmna74/11/2025 12:00 AM EST documented in this encounter [...] Watson MD [address] [place] [address] PCP - GeneralNurse Practitioner10/13/24documented as of this encounter
--- OUTSIDE RECORDS SUMMARY | 2025-07-22 00:05 | XMS_ITS | Encounter Summary ---
Author Organization [facility] Address [address] [place] [address] Care Team Providers Care Final Assembler Name Role Phone Susan Watson MD Primary Care Provider [phone] Encounter Details DateTypeDepartmentCare Team (Latest Contact Info)Omgalidmxrq87/11/2025 12:05 AM EST - 07/22/2025 11:59 PM ESTHospital Encounter [facility] Radiology External Films [address] [place] [address] Discharge Disposition: Home or Self Care () Social History Tobacco UseTypesPacks/DayYears UsedDateSmoking Tobacco: FormerCigarettes2.525 1968 - 1993Smokeless Tobacco: CurrentChewAlcohol UseStandard Drinks/WeekComments Not Currently0 (1 standard drink = 0.6 oz pure alcohol)PHQ-2AnswerDate Recorded Patient Health Questionnaire-2 Brdoe32108/14/2024Humiliation, Afraid, Rape, and Kick questionnaireAnswerDate RecordedWithin the [...] times a week06/15/2025How often do you attend catholic or lutheran services?Never06/15/2025Do you belong to any clubs or organizations such as catholic groups, unions, fraternal or athletic groups, or school groups?No06/15/2025How often do you attend meetings of the clubs or organizations you belong to?Never06/15/2025re you , , , , never , or living with a partner?Dqdjbadtm84/04/2025UDIT-C AnswerDate RecordedQ1: How often do you have [...] medical care, and heating?Not hard at all06/29/2025 [facility] [place] of Occupational Health - Occupational Stress Questionnaire AnswerDate RecordedDo you feel stress - tense, restless, nervous, or anxious, or unable to sleep at night because yourmind is troubled all the time - these days? Only a hmqoqi5606/15/2025HC UtilitiesAnswerDate RecordedIn the past 12 months has [...] were you homeless or living in a care home (including now)?No06/29/2025Hunger Vital SignAnswerDate Recorded Within the past 12 months, you worried that your food would run out before you got the money to buymore.Never true06/29/2025Within the past 12 months, the food you bought just didn't last and you didn't have money to get more.Never true 06/29/2025Sex and Gender InformationValueDate RecordedSex Assigned at BirthMale 04/08/2025 7:15 AM EDTLegal VwdRhxc4102/07/2022 10:15 PM EDTGender IdentityMale 04/08/2025 7:15 AM EDTSexual OrientationHeterosexual or Difwfvkv00/28/2025 7:15 AM EDTdocumented as of this encounter Medications at Time of Discharge MedicationSigDispense QuantityRefillsLast FilledStart DateEnd Date acetaminophen (Tylenol Extra Strength) 500 mg tablet Indications:Lower extremity pain, bilateralTake 2 tablets (1,000 mg) by mouth every 6 (six) hours if needed for moderate pain (4-7 pain score). 30 tablet albuterol 90 mcg/actuation inhaler INHALE 1 PUFF BY MOUTH EVERY 4 HOURS QBQGLB5212/02/2021 aspirin 81 mg EC tablet Take 1 [...] 75 mg by mouth in the morning. fenofibrate micronized (Antara) 43 mg capsule Take 1 capsule by mouth in the morning and at bedtime. vzpmdxgfpfl-fzbojivby-nlvtmior (Trelegy Ellipta) 100-62.5-25 mcg blister with device Inhale 1 puff in the morning.02/18/2024 furosemide (Lasix) 20 mg tablet Take 20 mg by mouth in the morning and at bedtime. isosorbide mononitrate ER (Imdur) 60 mg 24 [...] times daily for 197 doses. 90 tablet 5009/16/2025 sertraline (Zoloft) 100 mg tablet Take 2 tablets by mouth in the morning. sodium zirconium cyclosilicate (Lokelma) 10 gram packet Indications:Essential hypertension,Kidney disease, chronic, stage IV (GFR 15-29 ml/min) ([facility]),HyperkalemiaTake 10 g by mouth 3 (three) times a week. 120 g 07/07/2025 traZODone (Desyrel) 100 mg tablet Take 1 tablet by mouth at bedtime. amoxicillin-pot clavulanate (Augmentin) 875-125 mg tablet Indications:HemoptysisTake 1 tablet by mouth two times daily for 10 days. 20 tablet documented as of this encounter Plan of Treatment DateTypeDepartmentCare Team (Latest Contact Info)Jaoryalskjf02/12/2026 1:30 PM ESTHospital Encounter [facility] Main Operating Room [address] [place] [address] Chris Andre MD [address] [facility] [place] [address] 08/23/2025 1:30 PM EST - 08/23/2025 5:00 PM ESTSurgery [facility] Main Operating Room [address] [place] [phone] Chris Andre MD [address] [facility] [place] [address] ENDARTERECTOMY, FEMORAL WITH POSSIBLE FEM TO POP IYBZMQ0609/21/2025 11:00 AM EST Follow-Up [facility] Nephrology [address] [facility] [place] [address] Batsheva Beckwith MD [address] [facility] [place] [address] 10/21/2025 1:00 PM EDTAppointment [facility] CT Imaging [address] [place] [address] NamePriorityAssociated DiagnosesDate/TimeENDARTERECTOMY, FEMORAL Peripheral arterial occlusive disease Encounter for pre-operative examination 08/23/2025 1:30 PM ESTdocumented as of this encounter Goals GoalPatient Goal TypeAssociated ProblemsRecent ProgressPatient-Stated?Author Blood Pressure < 140/90 Blood Sszgcxtv548/68(07/22/2025 2:32 PM EST)Cy Child, RNdocumented as of this encounter Procedures Procedure NamePriorityDate/TimeAssociated DiagnosisCommentsXR TRANSFER OF OUTSIDE FZOKPVpotcga31/11/2025 12:05 AM EST documented in this encounter Results * XR transfer of outside films (07/22/2025 12:05 AM EST)Specimen (Source) Anatomical Location / LateralityCollection Method / VolumeCollection Time Received Time Narrative IMAGING - 07/22/2025 2:56 PM EST This order has been auto-finalized and does not contain a result. Authorizing ProviderResult TypeResult StatusZaid Vinod LEMONIMDavid XR PROCEDURESFinal ResultPerforming OrganizationAddressCity/State/ZIP CodePhone Number IMAGING documented in this encounter Visit Diagnoses Not on filedocumented in this encounter Care Teams Team MemberRelationshipSpecialtyStart DateEnd Date Susan Watson MD [address] [place] [address] PCP - GeneralNurse Practitioner10/13/24documented as of this encounter
--- OUTSIDE RECORDS SUMMARY | 2025-07-22 09:30 | XMS_ITS | Encounter Summary ---
Author Organization [facility] Address [address] [place] [address] Care Team Providers Care Solid Waste Management Engineer Name Role Phone Susan Watson MD Primary Care Provider Reason for Referral * Imaging (Routine) - AuthorizedSpecialtyDiagnoses / ProceduresReferred By ContactReferred To ContactCardiology Diagnoses Post-operative pain Procedures Vascular US lower extremity pseudoaneurysm evaluation duplex right Sarah Tolliver MD [address] [place] [address] Phone: tel: fax: Referral IDStatusReasonStart DateExpiration DateVisits RequestedVisits [id number] Perform Procedure Encounter Details DateTypeDepartmentCare Team (Latest Contact Info)Hkgwbzwntwa18/11/2025 9:30 AM ESTFollow-Up [facility] [place] [address] [place] [address] Sarah Tolliver MD [address] [place] [address] Dyspnea, unspecified type (Primary Dx); [...] oz pure alcohol)PHQ-2AnswerDate Recorded Patient Health Questionnaire-2 Zmvtd61708/14/2024Humiliation, Afraid, Rape, and Kick questionnaireAnswerDate RecordedWithin the [...] week06/15/2025How often do you attend spiritism or samaritan services?Never06/15/2025Do you belong to any clubs or organizations such as spiritism groups, unions, fraternal or athletic groups, or school groups?No06/15/2025How often do you attend meetings of the clubs or organizations you belong to?Never06/15/2025re you , , , , never , or living with a partner?Kyjxyoidj10/04/2025UDIT-C AnswerDate RecordedQ1: How often do you have [...] medical care, and heating?Not hard at all06/29/2025 [facility] [place] of Occupational Health - Occupational Stress Questionnaire AnswerDate RecordedDo you feel stress - tense, restless, nervous, or anxious, or unable to sleep at night because yourmind is troubled all the time - these days? Only a rlaylc5606/15/2025HC UtilitiesAnswerDate RecordedIn the past 12 months has [...] Assigned at BirthMale 04/08/2025 7:15 AM EDTLegal ZksUnff1002/07/2022 10:15 PM EDTGender IdentityMale 04/08/2025 7:15 AM EDTSexual OrientationHeterosexual or Gbnzghox35/28/2025 7:15 AM EDTdocumented as of this encounter Last Filed Vital Signs Vital SignReadingTime TakenCommentsBlood Phmipujb717/6007/22/2025 9:56 AM EST Njbim473607/22/2025 9:56 AM ESTTemperature--Respiratory Rate--Oxygen Kerdvxbxxm02% 07/22/2025 9:56 AM ESTInhaled Oxygen Concentration--Tjejmt25.9 kg (154 lb) 07/22/2025 9:56 AM DLYRhdevz787.3 cm (5' 9 )07/22/2025 9:56 AM ESTBody Mass Index22.7407/22/2025 9:56 AM ESTdocumented in this encounter Progress Notes * Sarah Tolliver MD - 07/22/2025 9:30 AM EST Images from the original note were not included. [facility] Cardiology Clinic Note Chief Complaint: Patient here for follow up angiogram. He is scheduled for surgery with Dr. Andre next month. Was admitted to [facility] recently for hemoptysis. Denies chest pain but [...] morning and at bedtime., Disp: , Rfl: peqxvyytidy-fnlodnaqo-aqahgqdn (Trelegy Ellipta) 100-62.5-25 mcg blister with device, [...] occluded right coronary artery. 2. Severe 3-vessel [place] coronary artery disease. 3. Patent left internal [...] Laboratory Report FINAL IMPRESSIONS: 1. Severe 3-vessel [place] coronary artery disease. 2. A 2/3 bypass grafts patent; the radial artery graft to the posterior descending artery is occluded. 3. Severe, heavily calcific lesion of the right common femoral artery; this is a new angiographic finding. Conclusion Cardiovascular Laboratory Report 05/11/2025 FINAL IMPRESSIONS: Severe, three-vessel [place] coronary artery disease There are 2 out [...] of Service: 06/07/2025 2:51 PM Status: Signed Fire Apparatus Engineer: Chris Andre MD (Physician) Related Notes: Original Note by Omer Nathan MD (Resident) filed at 06/08/2025 7:51 AM Right Femoral- Popliteal Bypass with 8mm Propaten Graft above the knee (R), ENDARTERECTOMY, COMMON FEMORAL ARTERY, PROFUNDA , AND (R) Operative Note Date: 06/07/2025 Location: [facility] OR Name: You Garcia, : 1955, Diagnosis Pre-op Diagnosis * Lower extremity pain, bilateral [M79.604, M79.605] * Severe claudication [I73.9] * Encounter for pre-operative examination [Z01.818] Post-op Diagnosis * Lower extremity pain, bilateral [M79.604, M79.605] * Severe claudication [I73.9] * Encounter for pre-operative examination [Z01.818] Procedures Right Femoral- Popliteal Bypass with 8mm Propaten Graft above the knee 62931 - AL BYPASS W/VEIN FEMORAL-POPLITEAL ENDARTERECTOMY, COMMON FEMORAL ARTERY, [...] should problems arise Sarah Tolliver MD, MPH, [facility], [facility], [facility] Interventional Cardiology Pager Email: [email or web address] documented in this encounter Plan of Treatment DateTypeDepartmentCare Team (Latest Contact Info)Twlqiegnwfl94/12/2026 1:30 PM ESTHospital Encounter [facility] Main Operating Room [address] [place] [address] Chris Andre MD [address] [place] [address] 08/23/2025 1:30 PM EST - 08/23/2025 5:00 PM ESTSurgery [facility] Main Operating Room [address] [place] [address] Chris Andre MD [address] [place] [address] ENDARTERECTOMY, FEMORAL WITH POSSIBLE FEM TO POP TASARD1309/21/2025 11:00 AM EST Follow-Up [facility] Nephrology [address] [place] [address] Batsheva Beckwith MD [address] [facility] [address] 2 [facility] [place] [address] 10/21/2025 1:00 PM EDTAppointment [facility] CT Imaging [address] [place] [phone] NameTypePriorityAssociated DiagnosesOrder ScheduleVascular US lower extremity pseudoaneurysm evaluation duplex rightVascular UltrasoundRoutine Post-operative pain Expected: 07/22/2025 (Approximate), Expires: 07/22/2027NamePriorityAssociated DiagnosesDate/TimeENDARTERECTOMY, FEMORAL Peripheral arterial occlusive disease Encounter for pre-operative examination 08/23/2025 1:30 PM ESTdocumented as of this encounter Goals GoalPatient Goal TypeAssociated ProblemsRecent ProgressPatient-Stated?Author Blood Pressure < 140/90 Blood Oqmotnkv733/68(07/22/2025 2:32 PM EST)Cy Child, JOHANAdocumented as of [...] DateEnd Date Susan Watson MD [address] [place] [address] PCP - GeneralNurse Practitioner10/13/24documented as of this encounter
--- OUTSIDE RECORDS SUMMARY | 2025-07-22 14:30 | XMS_ITS | Encounter Summary ---
Author Organization [facility] Address [address] [place] [address] Care Team Providers Care Soap Mixer Name Role Phone Susan Watson MD Primary Care Provider [phone] Reason for Referral * Imaging (Routine) - Pending ReviewSpecialtyDiagnoses / ProceduresReferred By ContactReferred To ContactRadiology Diagnoses Hemoptysis Procedures CT chest wo IV contrast Robert Brock MD [address] [place] [address] [place] [address] Phone: tel: fax: Referral IDStatusReasonStart DateExpiration DateVisits RequestedVisits [id number] Reason for Visit * ReasonCommentsCoughing Up Blood Encounter Details DateTypeDepartmentCare Team (Latest Contact Info)Laeqgbozgve60/11/2025 2:30 PM ESTConsult [facility] [address] [place] [address] [place] [address] Robert Brock MD [address] [place] [address] [place] [address] Hemoptysis (Primary Dx); Bleeding from the nose; S/P femoropopliteal bypass surgery; Coronary artery disease involving coronary bypass graft of upper [place] heart without angina pectoris; H/O: lung cancer Social History Tobacco UseTypesPacks/DayYears UsedDateSmoking Tobacco: FormerCigarettes2.525 1968 - 1993Smokeless Tobacco: CurrentChewAlcohol UseStandard Drinks/WeekComments Not Currently0 (1 standard drink = 0.6 oz pure alcohol)PHQ-2AnswerDate Recorded Patient Health Questionnaire-2 Yvjyh94208/14/2024Humiliation, Afraid, Rape, and Kick questionnaireAnswerDate RecordedWithin the [...] times a week06/15/2025How often do you attend orthodoxy or church services?Never06/15/2025Do you belong to any clubs or organizations such as orthodoxy groups, unions, fraternal or athletic groups, or school groups?No06/15/2025How often do you attend meetings of the clubs or organizations you belong to?Never06/15/2025re you , , , , never , or living with a partner?Kmjkzckku94/04/2025UDIT-C AnswerDate RecordedQ1: How often do you have [...] medical care, and heating?Not hard at all06/29/2025 [place] [employer] - Occupational Stress Questionnaire AnswerDate RecordedDo you feel stress - tense, restless, nervous, or anxious, or unable to sleep at night because yourmind is troubled all the time - these days? Only a khnlga9906/15/2025HC UtilitiesAnswerDate RecordedIn the past 12 months has [...] Assigned at BirthMale 04/08/2025 7:15 AM EDTLegal JiaOhas1802/07/2022 10:15 PM EDTGender IdentityMale 04/08/2025 7:15 AM EDTSexual OrientationHeterosexual or Yzpsbzbt82/28/2025 7:15 AM EDTdocumented as of this encounter Last Filed Vital Signs Vital SignReadingTime TakenCommentsBlood Ixmbtlhv751/6807/22/2025 2:32 PM EST Uvrbd236107/22/2025 2:26 PM ESTTemperature--Respiratory Rate--Oxygen Flkronlaja72% 07/22/2025 2:26 PM ESTroom air at restInhaled Oxygen Concentration--Wrksml81.3 kg (155 lb)07/22/2025 2:26 PM DJWTobpvc603.1 cm (5' 5 )07/22/2025 2:26 PM EST Body Mass Index25.7912 2:26 PM ESTdocumented in this encounter Progress Notes * David Reid MD - 07/22/2025 2:30 PM EST Images from the original note were not included. Pulmonary Clinic Visit Note Patient: You Garcia Age: 70 y.o. : 1955 Account No.: [id number] Chief complaint: New patient-hemoptysis HPI The patient is a 70-year-old male who presents to the clinic as a new patient to establish care forhemoptysis. He has a medical history significant for CAD, status post CABG 10 years back, COPD, hyperlipidemia,peripheral arterial disease, history of lung cancer with lobectomy done about 30 years back for poorly differentiated adenocarcinoma No pulmonary function testing on file. He had a recent cardiac catheterization done in 2024 for abnormal stress test and reduced ejection fraction or he was found to have severe triple-vessel disease with 2 out of 3 bypass graft patent. The patient had several studies done recently in July 2025 for evaluation of DVT and PE. His right lower extremity duplex ultrasound was negative for DVT. He had a V/Q scan which was normal. The CT scan of the chest completed in July 2025 showed ground glass attenuation more noted on the left, evidence of lobectomy in the right lung right-sided pleural effusion, fibrotic changes and ground glass attenuation in the right lower lobe was focal consolidation emanating from the right hilar lesion at the superior aspect of the right lower lobe, right side of the mediastinum measuring up to 1.1 cm in short axis. The patient stated that his symptoms started after having episodes of GI bleed requiring hospitalization. This started with bleeding from his nose about 2 weeks ago started having hemoptysis with bright red blood. He stated that he had a combination of clot and bright red blood. He stated that bleeding from his nose and the coughing has been getting better however his last episodes were today. Hewas recently treated with doxycycline over he stated that he continues to have cough was productivesputum greenish whenever he is not having the hemoptysis. Medical History[1] Surgical History[2] Allergies: Patient has no known allergies. Prior to Admission medications Medication Sig Start Date End Date Taking? Authorizing Provider acetaminophen (Tylenol Extra Strength) 500 mg tablet Take 2 tablets (1,000 mg) by mouth every 6 (six) hours if needed for moderate pain (4-7 pain score). 06/09/25 08/08/25 Lisa Levy MD albuterol 90 mcg/actuation inhaler INHALE 1 PUFF BY MOUTH EVERY 4 HOURS NEEDED 12/02/21 Historical Provider, aspirin 81 mg EC tablet Take 1 tablet by mouth in the morning. Historical Provider, atorvastatin (Lipitor) 80 mg tablet Take 80 mg by mouth at bedtime. Historical Provider, buPROPion XL (Wellbutrin XL) 300 [...] mg by mouth twice a day. 10/08/24 07/22/25 Historical Provider, fenofibrate micronized (Antara) 43 mg capsule Take 1 capsule by mouth in the morning and at bedtime. Historical Provider, nhlbshcfnmq-joxnkclaa-stmolwxe (Trelegy Ellipta) 100-62.5-25 mcg blister with device Inhale 1 puff in the morning. 02/18/24 Historical ProviderMD furosemide (Lasix) 20 mg tablet Take 20 mg by mouth in the morning and at bedtime. Historical Provider, isosorbide mononitrate ER (Imdur) 60 mg 24 hr tablet Take 60 mg by mouth in the morning. 10/22/19 Historical Provider, metoprolol tartrate (Lopressor) 50 mg [...] by mouth 3 (three) times a week. Patient taking differently: Take 10 g by mouth if needed. 07/07/25 Batsheva Beckwith MD traZODone (Desyrel) 100 mg tablet Take 1 tablet by mouth at bedtime. Historical Provider, Social history: reports that he quit smoking about 31 years ago. His smoking use included cigarettes. He started smoking about 56 years ago. He has a 62.5 pack-year smoking history. His smokeless tobacco use includes chew. He reports that he does not currently use alcohol. He reports that he does not use drugs. Family History[3] Review of Systems: 12 Systems were reviewed. Review of systems was negative except otherwise specified in the HPI Physical examination: Vitals: BP 148/68 (BP Location: Left arm, Patient Position: Sitting, BP Cuff Size: Adult) Pulse 66 Ht 1.651 m (5' 5 ) Wt 70.3 kg (155 lb) SpO2 97% Comment: room air at rest BMI 25.79 kg/m?? GENERAL: Alert and oriented x 3. No acute distress. HEENT: EOMI, no scleral icterus. Moist mucous membranes. LUNGS: Clear to auscultation bilaterally. No wheezes, rales, or rhonchi CARDIOVASCULAR: Regular rate and rhythm. Normal S1 and S2. No murmur, rubs, or gallops. ABDOMEN: Soft, non-tender, non-distended. Normal bowel sounds. No palpable masses. EXTREMITIES: No cyanosis, no edema, no calf tenderness NEUROLOGIC: Normal gait. No extremity weakness. No slurred speech PSYCHIATRIC: Cooperative. Appropriate mood and affect. Labs Results: Lab Results Component Value Date HGB 10.1 (L) 07/05/2025 HGB 11.3 (L) 07/01/2025 HGB 10.5 (L) 06/29/2025 HCT 32.3 (L) 07/05/2025 HCT 35.8 (L) 07/01/2025 HCT 33.8 (L) 06/29/2025 WBC 4.41 07/05/2025 WBC 4.90 06/29/2025 WBC 5.72 06/28/2025 BUN 22 07/05/2025 BUN 25 07/01/2025 BUN 26 (H) 07/01/2025 CREATININE 1.45 (H) 07/05/2025 CREATININE 1.62 (H) 07/01/2025 CREATININE 1.60 (H) 07/01/2025 NA 141 07/05/2025 NA 135 (L) 07/01/2025 NA 136 07/01/2025 K 4.8 07/05/2025 K 4.6 07/01/2025 K 4.6 07/01/2025 CO2 24 07/05/2025 CO2 16 (L) 07/01/2025 CO2 16 (L) 07/01/2025 PHART 7.41 06/07/2025 PHVEN 7.28 (L) 07/01/2025 XAP9HIC 37 06/07/2025 TSY4OPE 43 07/01/2025 PO2ART 76 (L) 06/07/2025 PO2VEN 26 (L) 07/01/2025 NQT3CXT 23.5 06/07/2025 RJF1PRY 20.2 07/01/2025 Radiology: No Chest X-ray results found for the past 24 hours CTA Abdomen Pelvis W IV Contrast Result Date: 06/28/2025 * Possible bleeding diverticula within the sigmoid colon with evidence of evolving intraluminal blood products on the arterial and delayed phases. * Groundglass opacities of the right lung base couldbe infectious/inflammatory or atelectasis. Correlate clinically. * Multiple indeterminate right renal lesions. Further characterization with renal mass protocol MRI recommended. * Similar- appearing fluid collection overlying the proximal portion of the bypass graft in the right groin measuring approximately 3.4 x 2.8 cm Approved by:Michael Lee06/28/2025 10:03 PM. I, Bryson Grant,have reviewed the image(s) and agree with the findings in this report. Electronically signed: Bryson Grant. CTA Aorta And Bilateral Iliofemoral Runoff W IV Contrast Result Date: 06/26/2025 * Patent inflow bilaterally. * Patent SFA bypass graft extending from the right common femoral artery to the right popliteal artery with fluid collections at both the proximal and distal ends as detailed above. Small focus of gas within the proximal collection, correlate for recent instrumentation.Infection cannot be excluded. * Scattered moderate to [...] nonemergent basis. Approved by:Manohar Ríos08/26/2024 6:13 PM. IMisha,have reviewed the image(s) and agree with the findings in this report. Electronically signed: Misha Ferrara. CT cervical spine wo IV contrast Result Date: 06/26/2025 No evidence of acute fracture or traumatic malalignment involving the cervical spine. Approved by:Manohar Ríos08/26/2024 5:21 PM. IMisha,have reviewed the image(s) and agree with the findings in this report. Electronically signed: Misha Ferrara. CT head wo IV contrast Result Date: 06/26/2025 Impression: * Unremarkable unenhanced CT brain * Electronically signed: Misha Ferrara. CT head wo IV contrast Result Date: 06/15/2025 * No acute intracranial findings by CT. Approved by:Eliud Kline06/15/2025 8:13 PM. I, Harsh Andrade MD,have reviewed the image(s) and agree with the findings in this report. Electronically signed: Harsh Andrade MD. Assessment and Plan: Diagnoses and all orders for this visit: Hemoptysis, unknown source, likely secondary to postnasal drip but pulmonary pathology not ruled out Bleeding from the nose Right mediastinal lymphadenopathy measuring 1.[address] scan done in July 2025 S/P femoropopliteal bypass surgery, on Xarelto, Aspirin and Plavix Coronary artery disease involving coronary bypass graft of upper matt[place]oni heart without angina pectoris H/O: lung cancer with partial lobectomy over 30 years ago Plan: - The patient reported that he feels a lot better compared to 2 weeks ago - No imaging is available to see for his most recent CT scan done in July however report is available. Will repeat CT scan of the chest to follow up on the right mediastinal LAD in 3 months. - Antibiotics for recent pneumonia. Starting Augmentin twice daily for 10 days - Follow up in a couple weeks on hemoptysis status - RTC in 2 weeks. Instructed to present to the ED if hemoptysis gets worse in the meantime David Reid MD [facility] Pulmonary/Critical Care Fellow [1] Past Medical History: Diagnosis Date Anxiety Atherosclerosis of arteries of extremities Cancer (CMS/HCC) LUNG Chronic kidney disease, stage 4 (severe) (CMS/HCC) Coronary artery disease Depression Dyspnea on exertion Emphysema lung (CMS/HCC) Frequent falls GERD (gastroesophageal reflux disease) Hyperlipidemia Hypertension Intermittent claudication MCI (mild cognitive impairment) Migraine Mitral regurgitation PAD (peripheral artery disease) Peripheral arterial occlusive disease Pulmonary hyperinflation Sleep apnea [2] Past Surgical History: Procedure Laterality Date CARDIAC CATHETERIZATION CATARACT EXTRACTION COLONOSCOPY CORONARY ARTERY BYPASS GRAFT FEMORAL BYPASS Right LUNG BIOPSY LUNG REMOVAL, PARTIAL [3] Family History Problem Relation Name Age of Onset Diabetes Mother Elizabeth Cosigned by Robert Brock MD at 07/26/2025 10:41 AM EST Associated attestation - Robert Brock MD - 07/26/2025 10:41 AM EST I reviewed the salient portions of the patient history. I have seen and examined the patient duringrounds with the resident/fellow Dr. Reid on 07/22. I repeated the tafoya components of the exam. Agree with the noted assessment and plan. Robert Brock MD [facility] Pulmonary and Critical Care Medicine documented in this encounter Plan of Treatment DateTypeDepartmentCare Team (Latest Contact Info)Jgfbaqmztrx65/12/2026 1:30 PM ESTHospital Encounter [facility] Main Operating Room [address] [place] [address] Chris Andre MD [address] [facility] [place] [address] 08/23/2025 1:30 PM EST - 08/23/2025 5:00 PM ESTSurgery [facility] Main Operating Room [address] [place] [address] Chris Andre MD [address] [facility] [place] [address] ENDARTERECTOMY, FEMORAL WITH POSSIBLE FEM TO POP IMRTVV1709/21/2025 11:00 AM EST Follow-Up [facility] Nephrology [address] [place] [address] Batsheva Beckwith MD [address] [facility] [address] [facility] [place] [address] 10/21/2025 1:00 PM EDTAppointment [facility] CT Imaging [address] [place] [address] NameTypePriorityAssociated DiagnosesOrder ScheduleCT chest wo IV contrastImaging Routine Hemoptysis Expected: 10/20/2025, Expires: 07/22/2026NamePriorityAssociated Diagnoses Date/TimeENDARTERECTOMY, FEMORAL Peripheral arterial occlusive disease Encounter for pre-operative examination 08/23/2025 1:30 PM ESTdocumented as of this encounter Goals GoalPatient Goal TypeAssociated ProblemsRecent ProgressPatient-Stated?Author Blood Pressure < 140/90 Blood Fgrwhrzo735/68(07/22/2025 2:32 PM EST)Cy Child, JOHANAdocumented as of this encounter Visit Diagnoses Diagnosis Encounter for pre-operative examination- Primary Peripheral arterial occlusive disease Unspecified peripheral vascular disease Hemoptysis- Primary Bleeding from the nose Epistaxis S/P femoropopliteal bypass surgery Coronary artery disease involving coronary bypass graft of upper mattaponi heart without angina pectoris H/O: lung cancer Personal history of malignant neoplasm of bronchus and lung Peripheral arterial occlusive disease Unspecified peripheral vascular disease Encounter for pre-operative examination documented in this encounter Care Teams Team MemberRelationshipSpecialtyStart DateEnd Date Susan Watson MD [address] [place] [address] PCP - GeneralNurse Practitioner10/13/24documented as of this encounter
--- OUTSIDE RECORDS SUMMARY | 2025-08-04 12:05 | XMS_ITS | Encounter Summary ---
Author Organization [facility] Address [address] [place] [address] Care Team Providers Care Hood Fitter Name Role Phone Susan Watson MD Primary Care Provider [phone] Encounter Details DateTypeDepartmentCare Team (Latest Contact Info)Maobtvfaior13/22/2025Results Follow-Up [facility] [address] [address] Carolyn Romo MA Basic metabolic panel Social History Tobacco UseTypesPacks/DayYears UsedDateSmoking Tobacco: FormerCigarettes Smokeless Tobacco: NeverAlcohol UseStandard Drinks/WeekCommentsNot Currently0 (1 standard drink = 0.6 oz pure alcohol)PHQ-2AnswerDate RecordedPatient Health Questionnaire-2 Zscea31408/14/2024Humiliation, Afraid, Rape, and Kick questionnaireAnswerDate RecordedWithin the [...] times a week06/15/2025How often do you attend sabianist or lutheran services?Never06/15/2025Do you belong to any clubs or organizations such as sabianist groups, unions, fraternal or athletic groups, or school groups?No 06/15/2025How often do you attend meetings of the clubs or organizations you belong to?Never06/15/2025re you , , , , never , or living with a partner?Onvchjcnm84/04/2025UDIT-CAnswerDate Recorded Q1: How often do you have [...] housing, medical care, and heating?Not hard at all06/29/2025[facility] of Occupational Health - Occupational Stress QuestionnaireAnswerDate RecordedDo you feel stress - tense, restless, nervous, or anxious, or unable to sleep at night because yourmind is troubled all the time - these days?Only a yqgxho3506/15/2025 [facility] UtilitiesAnswerDate RecordedIn the past 12 months has the [employer], gas, oil, or water [employer] threatened to shut off services in your [...] homeless or living in a intermediate (including now)?No06/29/2025Hunger Vital SignAnswerDate RecordedWithin the past 12 months, you worried that your food would run out before you got the money to buymore.Never true06/29/2025Within the past 12 months, the food you bought just didn't last and you didn't have money to get more.Never true 06/29/2025Sex and Gender InformationValueDate RecordedSex Assigned at BirthBelle[facility] Women[facility] Hospitale 04/08/2025 7:15 AM EDTLegal IidMyni0602/07/2022 10:15 PM EDTGender IdentityMale 04/08/2025 7:15 AM EDTSexual OrientationHeterosexual or Xmcpftrc17/28/2025 7:15 AM EDTdocumented as of this encounter Functional Status * AUDIT-C ScoreAnswerDate of InjjaareysSqmucj206/04/2025 10:41 PM Sari Rogers * Alcohol UseQuestionAnswerDate [...] family downNearly every day06/14/2025 2:37 PM Bambi Lvein MATrouble concentrating on things, such as reading the newspaper or watching television Not at all06/14/2025 2:37 PM Bambi Levin MAMoving or speaking so slowly that other [...] PM Bambi Levin MA Patient Health Questionnaire-2 Xxayz62208/14/2024 2:37 PM Bambi Levin MA * Calculated C-SSRS Risk Score (Lifetime/Recent)AnswerDate of AssessmentAuthorNo Risk Mfkwiovqv31/05/2025 12:12 AM Cy Cordon RN * Suicidal IdeationQuestionAnswerDate of AssessmentAuthor1. Wish to be (Lifetime)No06/29/2025 11:38 AM Brianne Dacosta RN2. Non-Specific Active Suicidal Thoughts (Lifetime)No06/29/2025 11:38 AM Brianne Dacosta RN * Suicidal BehaviorQuestionAnswerDate of AssessmentAuthorActual Attempt (Lifetime)No06/16/2025 12:12 AM Cy Cordon RNHas subject engaged in non-suicidal self-injurious behavior? (Lifetime)No06/16/2025 12:12 AM Cy Nur RNInterrupted Attempts (Lifetime)No06/16/2025 12:12 AM Cy Nur RNAborted or Self-Interrupted Attempt (Lifetime)No 06/08/2025 4:43 AM Kaylee Robertson RNPreparatory Acts or Behavior (Lifetime) No06/16/2025 12:12 AM yC Cordon RN documented as of this encounter Plan of Treatment DateTypeDepartmentCare Team (Latest Contact Info)Jyapkrlymwv78/12/2026 1:30 PM ESTHospital Encounter [facility] Main Operating Room [address] [place] [address] Chris Andre MD [address] [place] [phone] 08/23/2025 1:30 PM EST - 08/23/2025 5:00 PM ESTSurgery [facility] Main Operating Room [address] [place] [address] Chris Andre MD [address] [place] [phone] ENDARTERECTOMY, FEMORAL WITH POSSIBLE FEM TO POP MGGTOK7909/21/2025 11:00 AM EST Follow-Up [facility] Nephrology [address] [facility] [place] [address] Batsheva Beckwith MD [address] [facility] [address] [facility] [place] [address] 10/21/2025 1:00 PM EDTAppointment [facility] CT Imaging [address] [place] [phone] NamePriorityAssociated DiagnosesDate/TimeENDARTERECTOMY, FEMORAL Peripheral arterial occlusive disease Encounter for pre-operative examination 08/23/2025 1:30 PM ESTdocumented as of this encounter Goals GoalPatient Goal TypeAssociated ProblemsRecent ProgressPatient-Stated?Author Blood Pressure < 140/90 Blood Ishktkzx364/68(07/22/2025 2:32 PM EST)Cy Child, RNdocumented as of this encounter Visit Diagnoses Not on filedocumented in this encounter Care Teams Team MemberRelationshipSpecialtyStart DateEnd Date Susan Watson MD [address] [place] [address] PCP - GeneralNurse Practitioner10/13/24documented as of this encounter
--- OUTSIDE RECORDS SUMMARY | 2025-08-04 12:05 | XMS_ITS | Encounter Summary ---
Author Organization [facility] Address [address] [place] [address] Care Team Providers Care Buffing Wheel Raker Name Role Phone Susan Watson MD Primary Care Provider [phone] Encounter Details DateTypeDepartmentCare Team (Latest Contact Info)Heapnmiuufc86/09/2025bstract [facility] [address] [place] [address] Mala Cooper NP [address] [place] [address] [place] [address] Social History Tobacco UseTypesPacks/DayYears UsedDateSmoking Tobacco: FormerCigarettes Smokeless Tobacco: CurrentChewAlcohol UseStandard Drinks/WeekCommentsNot Currently0 (1 standard drink = 0.6 oz pure alcohol)PHQ-2AnswerDate Recorded Patient Health Questionnaire-2 Klnyh24208/14/2024Humiliation, Afraid, Rape, and Kick questionnaireAnswerDate RecordedWithin the [...] often do you attend jehovah's witness or quaker services?Never06/15/2025Do you belong to any clubs or organizations such as jehovah's witness groups, unions, fraternal or athletic groups, or school groups?No06/15/2025How often do you attend meetings of the clubs or organizations you belong to?Never06/15/2025re you , , , , never , or living with a partner?Shbgxpzjq54/04/2025UDIT-C AnswerDate RecordedQ1: How often do you have [...] medical care, and heating?Not hard at all06/29/2025 [facility] [place] of Occupational Health - Occupational Stress Questionnaire AnswerDate RecordedDo you feel stress - tense, restless, nervous, or anxious, or unable to sleep at night because yourmind is troubled all the time - these days? Only a vbctrh0406/15/2025HC UtilitiesAnswerDate RecordedIn the past 12 months has the [employer], gas, oil, or water [employer] threatened to shut off services in your [...] Assigned at BirthMale 04/08/2025 7:15 AM EDTLegal GqtOhys1002/07/2022 10:15 PM EDTGender IdentityMale 04/08/2025 7:15 AM EDTSexual OrientationHeterosexual or Dznqaywf07/28/2025 7:15 AM EDTdocumented as of this encounter Plan of Treatment DateTypeDepartmentCare Team (Latest Contact Info)Gmjynqnqsqi56/12/2026 1:30 PM ESTHospital Encounter [facility] Main Operating Room [address] [place] [address] Chris Andre MD [address] [place] [address] 08/23/2025 1:30 PM EST - 08/23/2025 5:00 PM ESTSurgery [facility] Main Operating Room [address] [place] [address] Chris Andre MD [address] [address] ENDARTERECTOMY, FEMORAL WITH POSSIBLE FEM TO POP IPVVTB6709/21/2025 11:00 AM EST Follow-Up [facility] Nephrology [address] [facility] [place] [address] Batsheva Beckwith MD [address] [facility] 2 [facility] [place] [address] 10/21/2025 1:00 PM EDTAppointment [facility] CT Imaging [address] [place] [address] NamePriorityAssociated DiagnosesDate/TimeENDARTERECTOMY, FEMORAL Peripheral arterial occlusive disease Encounter for pre-operative examination 08/23/2025 1:30 PM ESTdocumented as of this encounter Goals GoalPatient Goal TypeAssociated ProblemsRecent ProgressPatient-Stated?Author Blood Pressure < 140/90 Blood Wwszmpwc971/68(07/22/2025 2:32 PM EST)Cy Child, JOHANAdocumented as of this encounter Visit Diagnoses Not on filedocumented in this encounter Care Teams Team MemberRelationshipSpecialtyStart DateEnd Date Susan Watson MD [address] [place] [address] PCP - GeneralNurse Practitioner10/13/24documented as of this encounter
--- OUTSIDE RECORDS SUMMARY | 2025-08-04 12:05 | XMS_ITS | Encounter Summary ---
Author Organization [facility] Address [address] [place] [address] Care Team Providers Care Supply Chain Analyst Name Role Phone Susan Watson MD Primary Care Provider [phone] Reason for Referral * Imaging (Routine) - Pending ReviewSpecialtyDiagnoses / ProceduresReferred By ContactReferred To ContactCardiology Diagnoses Postoperative surgical complication involving circulatory system associated with cardiac catheterization, unspecified complication Procedures Lower extremity pseudoaneurysm duplex right Sarah Tolliver MD [address] [facility] [address] [facility] [place] [address] Phone: tel: fax: Referral IDStatusReasonStart DateExpiration DateVisits RequestedVisits [id number] Review Perform Procedure Encounter Details DateTypeDepartmentCare Team (Latest Contact Info)Ypbaogbusxo52/11/2025Orders Only [facility] [address] [place] [address] Melody Cheung MA Postoperative surgical complication involving circulatory system associated with cardiac catheterization, unspecified complication (Primary Dx) Social History Tobacco UseTypesPacks/DayYears UsedDateSmoking Tobacco: FormerCigarettes2.525 1968 - 1993Smokeless Tobacco: CurrentChewAlcohol UseStandard Drinks/WeekComments Not Currently0 (1 standard drink = 0.6 oz pure alcohol)PHQ-2AnswerDate Recorded Patient Health Questionnaire-2 Xcazo78308/14/2024Humiliation, Afraid, Rape, and Kick questionnaireAnswerDate RecordedWithin the [...] times a week06/15/2025How often do you attend scientologist or religion services?Never06/15/2025Do you belong to any clubs or organizations such as scientologist groups, unions, fraternal or athletic groups, or school groups?No06/15/2025How often do you attend meetings of the clubs or organizations you belong to?Never06/15/2025re you , , , , never , or living with a partner?Pqparitbo41/04/2025UDIT-C AnswerDate RecordedQ1: How often do you have [...] medical care, and heating?Not hard at all06/29/2025 [place] of Occupational Health - Occupational Stress Questionnaire AnswerDate RecordedDo you feel stress - tense, restless, nervous, or anxious, or unable to sleep at night because yourmind is troubled all the time - these days? Only a efulrn6206/15/2025HC UtilitiesAnswerDate RecordedIn the past 12 months has the sambaash, oil, or water boosk threatened to shut off services in your [...] Assigned at BirthMale 04/08/2025 7:15 AM EDTLegal JgwAqhi3202/07/2022 10:15 PM EDTGender IdentityMale 04/08/2025 7:15 AM EDTSexual OrientationHeterosexual or Vdghikfu52/28/2025 7:15 AM EDTdocumented as of this encounter Plan of Treatment DateTypeDepartmentCare Team (Latest Contact Info)Jzixtjxrtlj90/12/2026 1:30 PM ESTHospital Encounter [facility] Main Operating Room [address] [place] [address] Chris Andre MD [address] [place] [address] 08/23/2025 1:30 PM EST - 08/23/2025 5:[address] [facility] Main Operating Room [address] [place] [address] Chris Andre MD [address] [place] [address] ENDARTERECTOMY, FEMORAL WITH POSSIBLE FEM TO POP YHUACM2809/21/2025 11:00 AM EST Follow-Up [facility] Nephrology [address] [facility] [place] [address] Batsheva Beckwith MD [address] [facility] [address] [facility] [place] [address] 10/21/2025 1:[address] [facility] CT Imaging [address] [place] [address] NameTypePriorityAssociated DiagnosesOrder ScheduleLower extremity pseudoaneurysm duplex rightVascular UltrasoundRoutine Postoperative surgical complication involving circulatory system associated with cardiac catheterization, unspecified complication Expected: 07/22/2025 (Approximate), Expires: 07/22/2027NamePriorityAssociated DiagnosesDate/TimeENDARTERECTOMY, FEMORAL Peripheral arterial occlusive disease Encounter for pre-operative examination 08/23/2025 1:30 PM ESTdocumented as of this encounter Goals GoalPatient Goal TypeAssociated ProblemsRecent ProgressPatient-Stated?Author Blood Pressure < 140/90 Blood Yiqnbpvh526/68(07/22/2025 2:32 PM EST)Cy Child, JOHANAdocumented as of [...] Susan Watson MD [address] [place] [address] PCP - GeneralNurse Practitioner10/13/24documented as of this encounter
--- OUTSIDE RECORDS SUMMARY | 2025-08-04 12:05 | XMS_ITS | Clinical Summary ---
Author Organization [facility] Address [address] [place] [address] Care Team Providers Care Bull Chain Operator Name Role Phone Thomas Hurtado MD Unavailable Susan Watson CNP Primary Care Provider [phone] Allergies No known active allergies Medications * This document contains information received from the source organization and may not represent a complete record from that organization. MedicationSigDispense QuantityRefillsLast FilledStart DateEnd DateStatus albuterol HFA (PROVENTIL HFA, VENTOLIN HFA) 90 mcg/actuation inhaler INHALE 1 PUFF BY MOUTH EVERY 4 HOURS SXSZBZ5012/02/2021ctive amLODIPine (NORVASC) 5 mg tablet amlodipine 5 [...] 1/2 TABLETS BY MOUTH EVERY DAYActive omega 0-xwr-fqx-fish oil (FISH OIL) 100-160-1,000 mg cap Take [...] remission 04/12/2022MCI (mild cognitive impairment)2Dyspnea and respiratory lrezmbfzaophx63/01/2022 Overview (02/09/2022): 66 pk/yr history of smoking. Quit in 1994, when diagnosed with NSCLC and treated with RULobectomy and XRT. Also has extensive coronary disease, with CABG. Sees cardiology at [place]. Anxiety, HTN, CKD IIIb. PCP started albuterol [...] present. ?? Pulmonary rehabilitation. ?? Referral to registration manager here, at his request. ?? Echocardiogram. ?? [...] 05/16/2023State Score (1-10), lower number is lower wchk7573Data from: https://www.neighborhoodatlas.medicine.[facility].edu/. Last address used for revdgqzrleb[address]05/16/2023Sex and Gender InformationValueDate Recorded Sex Assigned at BirthNot on fileLegal FbnShmc8612/05/2021 11:57 AM EDTGender IdentityNot on fileSexual OrientationNot on file Last Filed Vital Signs Vital SignReadingTime TakenCommentsBlood Leeygeqb430/6209 11:06 AM EDT Jbeqr1859 11:06 AM KTRBzvglrvajgg02.4 ??C (97.5 ??F)02/09/2022 11:04 AM EDTRespiratory Dkda1127 11:04 AM EDTOxygen Hyrhiaaget04%04/01/2025 2:14 PM EDTInhaled Oxygen Concentration--Cirzzg67.6 kg (160 lb)04/29/2025 11:06 AM EDTper lfjslrnVtqdhv746.6 cm (5' 6 )04/01/2025 2:14 PM EDTBody Mass Index25.82 04/01/2025 2:14 PM EDT Plan of Treatment Health MaintenanceDue DateLast DoneCommentsAnnual PCP Team Chronic Disease Visit 1971Anxiety Bbkuhoodm86/17/1971Hepatitis C Nujasglez82/17/1971LDL Kjdbqbqwwem75/17/1971DTaP,Tdap,Td Vaccine (1 - Tdap)1972CT Colonography 1998Cologuard (FIT-DNA)04/28/19985744Ihdkxymxpsw72/17/1998Colorectal Cancer Dxnawxgud80/17/1998Fecal Occult Blood04/28/19986197Zwctrwvjcacnl79/17/1998RSV Vaccine (1 - Risk 50-74 years 1-dose series)2003Shingrix Vaccine (1 of 2) 2003Advance Directive Ejudcqjgfw27/01/2025Medicare Advantage Annual Wellness Visit5Covid-19 Vaccine ( season)2025 08/06/2021, 11/08/2020, 10/19/2020Influenza Vaccine (#1), 08/03/2020Serum Gacetvqyfn03/28/66618804/08/2025, 01/12/2025, 10/20/2024, Additional history existsDiabetes Jkrwmyemu57/28/14647704/08/2025, 05/19/2021, 10/02/2019Lipid Mvturdapi47, 4Pneumococcal Vaccine: 50+Amctlozuf95/23/2020, 08/27/2019 Goals GoalPatient Goal TypeAssociated ProblemsRecent ProgressPatient-Stated?Author Blood Pressure < 130/80 Blood Vwknlmkz695/62(04/29/2025 11:06 AM EDT)Michael Garcia MD Insurance Care Teams Team MemberRelationshipSpecialtyStart DateEnd Date Susan Watson CNP [address] [place] [address] PCP - GeneralFamily Medicine04/01/25 Thomas Hurtado MD [address] [place] [address] MICHAEL Referring TeamPsychiatry12/21/21
--- OUTSIDE RECORDS SUMMARY | 2025-08-04 12:05 | XMS_ITS | Encounter Summary ---
Author Organization [facility] Address [address] [place] [address] Care Team Providers Care Cod Clerk Name Role Phone Susan Watson MD Primary Care Provider [phone] Encounter Details DateTypeDepartmentCare Team (Latest Contact Info)Qgkonwfpdqm00/15/2025Telephone [facility] [address] [place] [address] Melody Cheung MA Social History Tobacco UseTypesPacks/DayYears UsedDateSmoking Tobacco: FormerCigarettes2.525 1968 - 1993Smokeless Tobacco: CurrentChewAlcohol UseStandard Drinks/WeekComments Not Currently0 (1 standard drink = 0.6 oz pure alcohol)PHQ-2AnswerDate Recorded Patient Health Questionnaire-2 Qjscy06408/14/2024Humiliation, Afraid, Rape, and Kick questionnaireAnswerDate RecordedWithin the [...] week06/15/2025How often do you attend orthodox or taoism services?Never06/15/2025Do you belong to any clubs or organizations such as orthodox groups, unions, fraternal or athletic groups, or school groups?No06/15/2025How often do you attend meetings of the clubs or organizations you belong to?Never06/15/2025re you , , , , never , or living with a partner?Qndotwsmo42/04/2025UDIT-C AnswerDate RecordedQ1: How often do you have [...] care, and heating?Not hard at all06/29/2025 [facility] [place] of Occupational Health - Occupational Stress Questionnaire AnswerDate RecordedDo you feel stress - tense, restless, nervous, or anxious, or unable to sleep at night because yourmind is troubled all the time - these days? Only a zzrnud0206/15/2025HC UtilitiesAnswerDate RecordedIn the past 12 months has the [employer], gas, oil, or water [employer] threatened to shut off services in your [...] Assigned at BirthMale 04/08/2025 7:15 AM EDTLegal CocHrbw4402/07/2022 10:15 PM EDTGender IdentityMale 04/08/2025 7:15 AM EDTSexual OrientationHeterosexual or Cdndccye74/28/2025 7:15 AM EDTdocumented as of this encounter [...] Plan of Treatment DateTypeDepartmentCare Team (Latest Contact Info)Yaaecovduzr53/12/2026 1:30 PM ESTHospital Encounter [facility] Main Operating Room [address] [place] [address] Chris Andre MD [address] [place] [address] 08/23/2025 1:30 PM EST - 08/23/2025 5:00 PM ESTSurgery [facility] Main Operating Room [address] [place] [address] Chris Andre MD [address] [place] [address] ENDARTERECTOMY, FEMORAL WITH POSSIBLE FEM TO POP SWYGUP8209/21/2025 11:00 AM EST Follow-Up [facility] Nephrology [address] [place] [address] Batsheva Beckwith MD [address] [facility] [address] [facility] [place] [address] 10/21/2025 1:00 PM EDTAppointment [facility] CT Imaging [address] [place] [address] NamePriorityAssociated DiagnosesDate/TimeENDARTERECTOMY, FEMORAL Peripheral arterial occlusive disease Encounter for pre-operative examination 08/23/2025 1:30 PM ESTdocumented as of this encounter Goals GoalPatient Goal TypeAssociated ProblemsRecent ProgressPatient-Stated?Author Blood Pressure < 140/90 Blood Hwcmmhoq549/68(07/22/2025 2:32 PM EST)Cy Child, JOHANAdocumented as of this encounter Visit Diagnoses Not on filedocumented in this encounter Care Teams Team MemberRelationshipSpecialtyStart DateEnd Date Susan Watson MD [address] [place] [address] PCP - GeneralNurse Practitioner10/13/24documented as of this encounter
--- OUTSIDE RECORDS SUMMARY | 2025-08-04 12:05 | XMS_ITS | Encounter Summary ---
Author Organization [facility] Address [address] [place] [address] Care Team Providers Care Soldering Machine Setter Name Role Phone Susan Watosn MD Primary Care Provider [phone] Encounter Details DateTypeDepartmentCare Team (Latest Contact Info)Ieyxfoldglq84/16/2025Results Follow-Up [facility] [place] [facility] [address] [place] [phone] Batsheva Beckwith MD [address] [facility] [address] [facility] [place] [address] Urinalysis with microscopic, Microalbumin, urine, random, Creatinine, urine, random, Additional followed-up results: 6 Social History Tobacco UseTypesPacks/DayYears UsedDateSmoking Tobacco: FormerCigarettes Smokeless Tobacco: NeverAlcohol UseStandard Drinks/WeekCommentsNot Currently0 (1 standard drink = 0.6 oz pure alcohol)PHQ-2AnswerDate RecordedPatient Health Questionnaire-2 Vkcgt49008/14/2024Humiliation, Afraid, Rape, and Kick questionnaireAnswerDate RecordedWithin the [...] week06/15/2025How often do you attend restorationist or muslim services?Never06/15/2025Do you belong to any clubs or organizations such as restorationist groups, unions, fraternal or athletic groups, or school groups?No 06/15/2025How often do you attend meetings of the clubs or organizations you belong to?Never06/15/2025re you , , , , never , or living with a partner?Tyruyaofl36/04/2025UDIT-CAnswerDate Recorded Q1: How often do you have [...] housing, medical care, and heating?Not hard at all06/29/2025[facility] [place] of Occupational Health - Occupational Stress QuestionnaireAnswerDate RecordedDo you feel stress - tense, restless, nervous, or anxious, or unable to sleep at night because yourmind is troubled all the time - these days?Only a zbqhoz0506/15/2025 [facility] UtilitiesAnswerDate RecordedIn the past 12 months has the [place], gas, oil, or water [employer] threatened to shut off services in your [...] health care facility (including now)?No06/29/2025Hunger Vital SignAnswerDate RecordedWithin the past 12 months, you worried that your food would run out before you got the money to buymore.Never true06/29/2025Within the past 12 months, the food you bought just didn't last and you didn't have money to get more.Never true 06/29/2025Sex and Gender InformationValueDate RecordedSex Assigned at BirthMale 04/08/2025 7:15 AM EDTLegal AajQica0702/07/2022 10:15 PM EDTGender IdentityMale 04/08/2025 7:15 AM EDTSexual OrientationHeterosexual or Jmddpmhu73/28/2025 7:15 AM EDTdocumented as of this encounter Functional Status * AUDIT-C ScoreAnswerDate of GoptvhclcsRwaftq571/04/2025 10:41 PM Sari Rogers * Alcohol UseQuestionAnswerDate [...] PM Bambi Levin MA Patient Health Questionnaire-2 Bkptv86008/14/2024 2:37 PM Bambi Levin MA * Calculated C-SSRS Risk Score (Lifetime/Recent)AnswerDate of AssessmentAuthorNo Risk Lkufdcrjp50/05/2025 12:12 AM Cy Cordon RN * Suicidal [...] Self-Interrupted Attempt (Lifetime)No 06/08/2025 4:43 AM Kaylee Roebrtson, RNPreparatory Acts or Behavior (Lifetime) No06/16/2025 12:12 AM Cy Cordon RN documented as of this encounter Plan of Treatment DateTypeDepartmentCare Team (Latest Contact Info)Phwegxggddt44/12/2026 1:30 PM ESTHospital Encounter [facility] Main Operating Room [address] [place] [phone] Chris Andre MD [address] [place] [phone] 08/23/2025 1:30 PM EST - 08/23/2025 5:00 PM ESTSurgery [facility] Main Operating Room [address] [place] [phone] Chris Andre MD [address] [place] [phone] ENDARTERECTOMY, FEMORAL WITH POSSIBLE FEM TO POP ROPIBV4709/21/2025 11:00 AM EST Follow-Up [facility] [place] [facility] [address] [place] [address] Batsheva Beckwith MD [address] [facility] [address] [facility] [place] [address] 10/21/2025 1:00 PM EDTAppointment [facility] CT Imaging [address] [place] [phone] NamePriorityAssociated DiagnosesDate/TimeENDARTERECTOMY, FEMORAL Peripheral arterial occlusive disease Encounter for pre-operative examination 08/23/2025 1:30 PM ESTdocumented as of this encounter Goals GoalPatient Goal TypeAssociated ProblemsRecent ProgressPatient-Stated?Author Blood Pressure < 140/90 Blood Yexqlont506/68(07/22/2025 2:32 PM EST)Cy Child RNdocumented as of this encounter Results * (ABNORMAL) Basic metabolic panel (05/31/2025 11:59 AM EDT)ComponentValueRef RangeTest MethodAnalysis TimePerformed AtPathologist TtxvagmqlFtaxuz167467 - 145 mmol/L10/ 12:43 PM [facility] ([facility])Potassium5.13.5 - 5.1 mmol/L1 12:43 PM [facility] ([facility])Krdwaybe670(H)98 - 107 mmol/L1 12:43 PM [facility] ([facility])MB91059 - 31 mmol/L 05/31/2025 12:43 PM [facility] ([facility])BUN36(H)7 - 25 mg/dL 05/31/2025 12:43 PM [facility] ([facility])Creatinine1.97(H)0.70 - 1.30 mg/dL05/31/2025 12:43 PM [facility] ([facility])Simkzjv2589 - 100 mg/dL 05/31/2025 12:43 PM [facility] ([facility])Calcium8.98.6 - 10.3 mg/dL 05/31/2025 12:43 PM [facility] ([facility])Anion Ged151 - 20 mmol/L 05/31/2025 12:43 PM [facility] ([facility])eGFR35.4(L)>60.0 mL/min/1.73m* 12:43 PM [facility] ([facility])Comment:[facility]???s estimated glomerular filtration rate (eGFR) [...] one group of individuals.BUN/Creatinine Ratio18.310 12:43 PM [facility] ([facility])Specimen (Source)Anatomical Location / LateralityCollection Method / VolumeCollection TimeReceived TimeBloodVenous blood specimen / Unknown Venipuncture / Gtpwmwa4305/31/2025 11:59 AM EDT1 12:13 PM EDT Narrative Authorizing ProviderResult TypeResult StatusZubia Tang CEE BLOOD ORDERABLES Final ResultPerforming OrganizationAddressCity/State/ZIP CodePhone Number [facility] ([facility] [address] [place] [address] documented in this encounter Visit Diagnoses Diagnosis Hyperkalemia- Primary Hyperpotassemia Encounter for pre-operative examination- Primary Peripheral arterial occlusive disease Unspecified peripheral vascular disease Peripheral arterial occlusive disease Unspecified peripheral vascular disease Encounter for pre-operative examination documented in this encounter Care Teams Team MemberRelationshipSpecialtyStart DateEnd Date Susan Watson MD [employer] [place] [address] PCP - GeneralNurse Practitioner10/13/24documented as of this encounter
--- OUTSIDE RECORDS SUMMARY | 2025-08-04 12:05 | XMS_ITS | Encounter Summary ---
Author Organization [facility] Address [address] [place] [address] Care Team Providers Care Reinsurance Claim Analyst Name Role Phone Susan Watson MD Primary Care Provider [phone] Encounter Details DateTypeDepartmentCare Team (Latest Contact Info)Lsmxpfzbfda95/18/2025Telephone [address] [place] [phone] Adrianne Reynolds MA Social History Tobacco UseTypesPacks/DayYears UsedDateSmoking Tobacco: FormerCigarettes2.525 1968 - 1993Smokeless Tobacco: CurrentChewAlcohol UseStandard Drinks/WeekComments Not Currently0 (1 standard drink = 0.6 oz pure alcohol)PHQ-2AnswerDate Recorded Patient Health Questionnaire-2 Sqhxl63508/14/2024Humiliation, Afraid, Rape, and Kick questionnaireAnswerDate RecordedWithin the [...] times a week06/15/2025How often do you attend temple or methodist services?Never06/15/2025Do you belong to any clubs or organizations such as temple groups, unions, fraternal or athletic groups, or school groups?No06/15/2025How often do you attend meetings of the clubs or organizations you belong to?Never06/15/2025re you , , , , never , or living with a partner?Wgaorcyok83/04/2025UDIT-C AnswerDate RecordedQ1: How often do you have [...] medical care, and heating?Not hard at all06/29/2025 [facility] [place] of Occupational Health - Occupational Stress Questionnaire AnswerDate RecordedDo you feel stress - tense, restless, nervous, or anxious, or unable to sleep at night because yourmind is troubled all the time - these days? Only a pctjwc6506/15/2025HC UtilitiesAnswerDate RecordedIn the past 12 months has the [employer], gas, oil, or water [employer] threatened to shut off services in your [...] Assigned at BirthMale 04/08/2025 7:15 AM EDTLegal SaeNwbf4802/07/2022 10:15 PM EDTGender IdentityMale 04/08/2025 7:15 AM EDTSexual OrientationHeterosexual or Lldkkfhu97/28/2025 7:15 AM EDTdocumented as of this encounter [...] review and call to coordinate appt dates/time [phone]. Thank you This phone message was created by the Ambulatory float staff. If you need desktop support manager follow up regarding this patient, please make your appropriate clinic staff member aware. Thank you. documented in this encounter Plan of Treatment DateTypeDepartmentCare Team (Latest Contact Info)Momvvcjcaom56/12/2026 1:30 PM ESTHospital Encounter [facility] Main Operating Room [address] [place] [phone] Chris Andre MD [address] [facility] [place] [phone] 08/23/2025 1:30 PM EST - 08/23/2025 5:[address] [facility] Main Operating Room [address] [place] [phone] Chris Andre MD [address] [facility] [place] [address] ENDARTERECTOMY, FEMORAL WITH POSSIBLE FEM TO POP LULWKJ8709/21/2025 11:00 AM EST Follow-Up [facility] [address] [facility] [place] [address] Batsheva Beckwith MD [address] [facility] 2 [facility] [place] [address] 10/21/2025 1:[address] [facility] CT Imaging [address] [facility] [facility] [place] [phone] NamePriorityAssociated DiagnosesDate/TimeENDARTERECTOMY, FEMORAL Peripheral arterial occlusive disease Encounter for pre-operative examination 08/23/2025 1:30 PM ESTdocumented as of this encounter Goals GoalPatient Goal TypeAssociated ProblemsRecent ProgressPatient-Stated?Author Blood Pressure < 140/90 Blood Xlscduqm636/68(07/22/2025 2:32 PM EST)Cy Child, RNdocumented as of this encounter Visit Diagnoses Not on filedocumented in this encounter Care Teams Team MemberRelationshipSpecialtyStart DateEnd Date Susan Watson MD [address] [place] [address] PCP - GeneralNurse Practitioner10/13/24documented as of this encounter
--- OUTSIDE RECORDS SUMMARY | 2025-08-04 12:05 | XMS_ITS | Encounter Summary ---
Author Organization [facility] Address [address] [place] [address] Care Team Providers Care Delicatessen Manager Name Role Phone Susan Watson MD Primary Care Provider [phone] Encounter Details DateTypeDepartmentCare Team (Latest Contact Info)Ikaaysmiuvm38/15/2025Orders Only [facility] at [facility] [address] [place] [phone] David Reid MD [address] [place] [address] [place] [address] Social History Tobacco UseTypesPacks/DayYears UsedDateSmoking Tobacco: FormerCigarettes2.525 1968 - 1993Smokeless Tobacco: CurrentChewAlcohol UseStandard Drinks/WeekComments Not Currently0 (1 standard drink = 0.6 oz pure alcohol)PHQ-2AnswerDate Recorded Patient Health Questionnaire-2 Cgqog56308/14/2024Humiliation, Afraid, Rape, and Kick questionnaireAnswerDate RecordedWithin the [...] week06/15/2025How often do you attend tenriism or mu-ism services?Never06/15/2025Do you belong to any clubs or organizations such as tenriism groups, unions, fraternal or athletic groups, or school groups?No06/15/2025How often do you attend meetings of the clubs or organizations you belong to?Never06/15/2025re you , , , , never , or living with a partner?Zblikutky57/04/2025UDIT-C AnswerDate RecordedQ1: How often do you have [...] medical care, and heating?Not hard at all06/29/2025 [place] of Occupational Health - Occupational Stress Questionnaire AnswerDate RecordedDo you feel stress - tense, restless, nervous, or anxious, or unable to sleep at night because yourmind is troubled all the time - these days? Only a mzoqbu1406/15/2025HC UtilitiesAnswerDate RecordedIn the past 12 months has the [employer], gas, oil, or water [employer] threatened to shut off services in your [...] Assigned at BirthMale 04/08/2025 7:15 AM EDTLegal PtyHahv5802/07/2022 10:15 PM EDTGender IdentityMale 04/08/2025 7:15 AM EDTSexual OrientationHeterosexual or Kiqzqzom61/28/2025 7:15 AM EDTdocumented as of this encounter Plan of Treatment DateTypeDepartmentCare Team (Latest Contact Info)Fffumfamftr23/12/2026 1:30 PM ESTHospital Encounter [facility] Main Operating Room [address] [place] [address] Chris Andre MD [address] [place] [address] 08/23/2025 1:30 PM EST - 08/23/2025 5:00 PM ESTSurgery [facility] Main Operating Room [address] [place] [address] Chris Andre MD [address] [place] [phone] 362- ENDARTERECTOMY, FEMORAL WITH POSSIBLE FEM TO POP RGRFLW2609/21/2025 11:00 AM EST Follow-Up [facility] at [facility] Nephrology [address] [place] [phone] Batsheva Beckwith MD [address] [facility] 2 [facility] [place] [address] 10/21/2025 1:00 PM EDTAppointment [facility] CT Imaging [address] [place] [address] NamePriorityAssociated DiagnosesDate/TimeENDARTERECTOMY, FEMORAL Peripheral arterial occlusive disease Encounter for pre-operative examination 08/23/2025 1:30 PM ESTdocumented as of this encounter Goals GoalPatient Goal TypeAssociated ProblemsRecent ProgressPatient-Stated?Author Blood Pressure < 140/90 Blood Nixbuhcp237/68(07/22/2025 2:32 PM EST)Cy Child, RNdocumented as of this encounter Visit Diagnoses Not on filedocumented in this encounter Care Teams Team MemberRelationshipSpecialtyStart DateEnd Date Susan Watson MD [address] [facility] [place] [address] PCP - GeneralNurse Practitioner10/13/24documented as of this encounter
--- OUTSIDE RECORDS SUMMARY | 2025-08-04 12:06 | XMS_ITS | Clinical Summary ---
Author Organization [facility] Address [address] [place] [address] Care Team Providers Care Family Caseworker Name Role Phone Susan Watson MD Primary Care Provider Allergies No known active allergies Medications MedicationSigDispense QuantityRefillsLast FilledStart DateEnd DateStatus albuterol 90 mcg/actuation inhaler INHALE 1 PUFF BY MOUTH EVERY 4 HOURS DJRTAG2612/02/2021ctive aspirin 81 mg EC tablet Take 1 [...] mouth in the morning and at bedtime.Active dqedvxjqrxv-qvokgaqtb-fvzzmqmu (Trelegy Ellipta) 100-62.5-25 mcg blister with device [...] 60 mg by mouth in the morning.10/22/2019Active OLANZapine (ZyPREXA) 2.5 mg tablet 5Active amLODIPine (Norvasc) 5 mg tablet Take 1 tablet by mouth two times daily.07/06/2025Discontinued sodium zirconium cyclosilicate (Lokelma) 10 gram packet Indications:Kidney disease, chronic, stage IV (GFR 15-29 ml/min) (CMS/HCC), Essential hypertension,HyperkalemiaTake 10 g by mouth 3 (three) times a week. 120 g Discontinued(Reorder) sodium bicarbonate 650 mg tablet Indications:Metabolic acidosisTake 2 tablets (1,300 mg) by mouth two times daily for 2 days, THEN 1 tablet (650 mg) two times daily for 5 days. 18 tablet /Discontinued amoxicillin-pot clavulanate (Augmentin) 875-125 mg tablet Indications:HemoptysisTake 1 tablet by mouth two times daily for 7 days. 14 tablet 512/06/2025Discontinued amoxicillin-pot clavulanate (Augmentin) 875-125 mg tablet Indications:HemoptysisTake 1 tablet by mouth two times daily for 10 days. 20 tablet /Expired Active Problems ProblemNoted DateDiagnosed DateMicroscopic mmeldybcp27/18/2025GI bleeding 07/19/20254640Ecaxjh11/18/2025hronic kidney disease, stage 3b06/29/2025Depression 06/29/20259331Uxpvdlnubycu94/18/2025Other nondisplaced fracture of upper end of left humerus, subsequent encounter for fracture with routine adnsclu5006/29/2025Sigmoid mkzmufkhtkqzeh01/18/2025Ventral jumqoq5606/29/2025 Overview (06/29/2025): Problem List clean-up per request of Phys. EHR Cmte Ktifrfoy66/18/2025AD (coronary artery disease) of artery bypass graft06/29/2025 Hypertensive chronic kidney disease with stage 1 through stage 4 chronic kidney disease, or unspecified chronic kidney ukhwygc4206/29/2025losed fracture of greater tuberosity of left byudqdf7106/29/20257758Bycbswxeibyp76/18/2025Rectal ldewabpm76/18/2025 Assessment & Plan (06/30/2025 2:16 PM EST): [...] EST): EF 40-45% currently is euvolemic Renal fvxtkj2306/29/2025 Assessment & Plan (06/30/2025 2:16 PM EST): [...] on aspirin, Plavix, metoprolol, atorvastatin and fenofibrate Huvshhkfls29/04/2025Other specified symptoms and signs involving the circulatory and respiratory zjugcho0006/14/2025S/P femoropopliteal bypass dhewfww7006/14/2025 Assessment & Plan (06/30/2025 2:16 PM EST): - was on dual antiplatelet therapy plus Xarelto - vascular surgery following and recommending to continue plavix at this time Assessment & Plan (06/29/2025 3:05 AM EST): was on dual antiplatelet therapy plus Xarelto Consult vascular surgery for input regarding anticoagulation Encounter for pre-operative bjyesnuxzcj17/28/2025Peripheral arterial occlusive blicnfj9606/07/2025Reduced ejection fraction concurrent with and due to acute heart seuxnov0604/29/20250771Igckdcmiupwy25/12/2025 Assessment & Plan (06/07/2025 2:40 PM EDT): Relevant Hx: Can walk only 10 steps prior to stopping due to pain Course: Previous stenting of the right SFA, continues to be symptomatic Today's Plan: OR today for right fem-pop bypass with graft, 2g Ancef given for surgical prophylaxis Lower extremity pain, cvqctlulv94/31/2025 Assessment & Plan (06/07/2025 2:40 PM EDT): Plan same as below Chronic diastolic heart asylywz8703/01/2025Pulmonary mauvyrwqdbhs05/21/2025 Cervical bhbdmfvpyuu87/10/2025Neck pain11/19/2024Frequent falls06/17/2024 Functional gait vkaseyjohbo07/06/2024hronic obstructive pulmonary disease, aoypcnxqkqp31/31/2024 Assessment & Plan (06/30/2025 2:16 PM EST): [...] greater tuberosity of left humerus with routine snjolei0309/19/2023GAD (generalized anxiety disorder)09/19/2023H/O: lung cancer 09/19/2023Traumatic complete tear of left rotator cuff09/19/2023oronary artery disease involving [place] coronary artery of [place] heart without angina pectoris 09/19/2023 Assessment & [...] (mild cognitive impairment)2Recurrent major depression in partial dfomphlti76/01/2022Recurrent major depressive disorder, in full remission 04/12/2022Hypertensive toyjtmfs16/17/2014 Assessment & Plan (06/30/2025 2:16 PM EST): - continue amlodipine, metoprolol - Blood pressure within acceptable range on 06/30 Assessment & Plan (06/29/2025 3:05 AM EST): continue amlodipine, metoprolol Abnormal results of cardiovascular function tytsyyz1709/30/2013 Overview (10/13/2024): MILD INFERIOR AND ANTERIOR ISCHEMIA EF 52% Chest pain09/18/2013Dyspnea and respiratory jvhfeuqruhvue06/07/2014 Overview (10/13/2024): 66 pk/yr history of smoking. Quit in 1994, when diagnosed with NSCLC and treated with RULobectomy and XRT. Also has extensive coronary disease, with CABG. Sees cardiology at [facility]. Anxiety, HTN, CKD IIIb. PCP started albuterol [...] without BD response. Atherosclerosis of arteries of slrxolqezxs28/14/2013Intermittent claudication 08/25/2012Peripheral vascular elvjqzo4808/25/2012 Assessment & Plan (06/30/2025 2:16 PM EST): - was on dual antiplatelet therapy plus Xarelto - vascular surgery following and recommending to continue plavix at this time Assessment & Plan (06/29/2025 3:05 AM EST): was on dual antiplatelet therapy plus Xarelto Consult vascular surgery for input regarding anticoagulation Gastroesophageal reflux disease without oafzgdxoyeh37/07/8055Sjmbixzy47/07/2012 Mixed wqhyomsbabmwnx57/07/2012 Assessment & Plan (06/30/2025 2:16 PM EST): - continue atorvastatin and fenofibrate Assessment & Plan (06/29/2025 3:05 AM EST): continue atorvastatin and fenofibrate Coronary panmuqbtlgmfutc40/07/2012Primary hukbuhymcgog53/07/2012 Resolved Problems ProblemNoted DateDiagnosed DateResolved DateEncounter for pre-operative czhingczphw14/12/293360/ Encounters DateTypeDepartmentCare IfzwDmlmmcatbln13/18/2025Telephone [facility] Pulmonary [address] [place] [address] [place] [phone] Adrianne Reynolds MA 07/26/2025Orders Only [facility] Pulmonary [address] [facility] [place] [address] David Reid MD 07/26/2025Telephone [facility] [address] [facility] [place] [phone] Melody Cheung MA 07/22/2025 2:30 PM ESTConsult [facility] Pulmonary [address] [place] [address] Robert Brock MD Hemoptysis (Primary Dx); Bleeding from the nose; S/P femoropopliteal bypass surgery; Coronary artery disease involving coronary bypass graft of [place] heart without angina pectoris; H/O: lung fanzps1807/22/2025 9:30 AM ESTFollow-Up [facility] [address] [facility] [place] [address] Sarah Tolliver MD Dyspnea, unspecified type (Primary Dx); Chronic obstructive pulmonary disease, unspecified COPD type (CMS/HCC); PAD (peripheral artery disease); Chronic kidney disease, stage 4 (severe) (CMS/HCC); Reduced ejection fraction concurrent with and due to acute heart failure (CMS/HCC); Post-operative pain07/22/2025 12:05 AM EST - 07/22/2025 11:59 PM ESTHospital Encounter [facility] Radiology External Films [address] [place] [phone] Discharge Disposition: Home or Self Care ()07/22/2025 - 07/22/2025 12:04 AM ESTHospital Encounter [facility] Radiology External Films [address] [place] [address] Discharge Disposition: Home or Self Care ()07/22/2025Orders Only [facility] [address] [facility] [place] [address] Melody Cheung MA Postoperative surgical complication involving circulatory system associated with cardiac catheterization, unspecified complication (Primary Dx)07/20/2025bstract [facility] WOUND CARE CLINIC [address] [place] [address] Mala Cooper NP 07/16/2025Telephone [facility] Cardiology Clinic [address] [place] [address] Sarah Tolliver MD 07/16/2025Telephone [facility] Heart and Vascular [place] [facility] [address] [place] [address] Peace Gong MA Request for Return Call07/06/2025 1:00 PM ESTFollow-Up [facility] [address] [place] [phone] Batsheva Beckwith MD Chronic kidney disease, stage 3b (CMS/HCC) (Primary Dx); Electrolyte imbalance; Anemia due to stage 3b chronic kidney disease ([facility]/HCC); Essential hypertension; HFrEF (heart failure with reduced ejection fraction) ([facility]/HCC); Peripheral arterial occlusive disease; Kidney disease, chronic, stage IV (GFR 15-29 ml/min) ([facility]/HCC); Pfbebaozzgvy22/24/2025 2:35 PM ESTLab [facility] Outpatient Draw Station [address] [place] [address] Lower GI bleed07/05/2025 2:15 PM ESTFollow-Up [facility] Heart [facility] Vascular [place] Vascular and Endovascular Surgery [address] [place] [address] Nadia Sheppard PA-C Postoperative wound dehiscence, subsequent encounter (Primary Dx); PAOD (peripheral arterial occlusive disease)07/02/2025Telephone [facility] HVCU [address] [place] [address] Brianne Morales, JOHANA Hospital Follow-up07/02/2025Telephone [facility] Heart at [facility] [address] [place] [address] Elza Butt MA 07/01/2025 1:44 PM ESTAnesthesia [facility] In[facility] Center Endoscopy [address] [place] [address] Melody Cortes MD Kwak, Eun Seo, MD 07/01/20252728Mmaxwk28/19/2025 2:08 PM ESTAnesthesia Event [facility] Invasive Surgery Center Endoscopy [address] [place] [address] Melody Cortes MD Stimes, Nicholas, MD 06/30/20259031Ffceha49/17/2025 5:59 PM EST - 07/01/2025 6:53 PM ESTHospital Encounter [facility] HVCU [address] [place] [phone] Cleopatra Curiel MD Horani, Omar, MD Chang, Kyu Chul, MD Lower GI bleed (Primary Dx); Diverticular hemorrhage; Metabolic acidosis Discharge Disposition: Home or Self Care ()06/28/20254096Evwgaz13/17/2025Orders Only [facility] Infectious [facility] [address] [facility], [address] [place] [address] Carolyn Romo MA 06/28/2025Results Follow-Up [facility] at [facility] [address] [facility], [address] [place] [address] Carolyn Romo MA Basic metabolic panel, Magnesium, Phosphorus, CBC06/26/2025 1:20 PM EST - 06/26/2025 8:38 PM ESTEmergency [facility] Emergency [address] [place] [address] Brayan Gutierrez MD Dislocation of finger, initial encounter (Primary Dx); Peripheral arterial disease; Fall, initial encounter Discharge Disposition: Home or Self Care ()06/26/20252083Hhrpok28/14/2025 3:05 PM ESTLab [facility] Outpatient Draw Station [address] [place] [address] Chronic kidney disease, unspecified CKD stage; Peripheral arterial occlusive disease; Encounter for pre-operative ilvlwefbcbi93/14/2025 2:00 PM ESTFollow-Up [facility] Vascular and Endovascular Surgery [address] [place] [address] Nadia Sheppard PA-C Postoperative wound dehiscence, subsequent encounter (Primary Dx); PAOD (peripheral arterial occlusive disease); Dehiscence of operative wound, subsequent /10/2025Orders Only [facility] Pre-Anesthesia Clinic [address] [place] [address] Chasity Bryant, JOHANA 06/15/2025 6:56 PM EST - 06/19/2025 6:55 PM ESTHospital Encounter [facility] 4CD [address] [place] [phone] Damaris Gee PA-C Nazzal, Munier, MD Cellulitis (Primary Dx); Wound infection after surgery Discharge Disposition: Home or Self Care ()06/15/20253948Ldaqmx68/03/2025 2:00 PM ESTFollow-Up [facility] Vascular and Endovascular Surgery [address] [place] [phone] Mala Cooper NP Other specified symptoms and signs involving the circulatory and respiratory systems (Primary Dx); Claudication; S/P femoropopliteal bypass jqjzciy6006/12/2025 1:37 AM EDT - 06/12/2025 2:29 AM EDTEmergency [facility] Emergency [address] [place] [phone] Karan Fuller MD Encounter for postoperative wound check (Primary Dx) Discharge Disposition: Home or Self Care ()06/12/20250345Kccuwo87/28/2025Orders Only [facility] Vascular and Endovascular Surgery [address] [place] [address] Jessica Fatima MA Peripheral arterial occlusive disease (Primary Dx); Encounter for pre-operative bvknvxhlunm86/28/2025Orders Only [facility] Neph[address] [place] [phone] Carolyn Romo MA 06/07/2025 2:51 PM EDTAnesthesia Event [facility] Main Operating Room [address] [place] [address] Trang Chen MD Meisler, Adam, MD 06/07/2025 11:00 AM EDT - 06/07/2025 2:00 PM EDTSurgery [facility] Main Operating Room [address] [place] [phone] Chris Andre MD Right Femoral- Popliteal Bypass with 8mm Propaten Graft above the knee [90966 (CPT??)]06/07/2025 9:26 AM EDT - 06/09/2025 7:30 PM EDTHospital Encounter [facility] 4AB Urology [address] [place] [phone] Chris Andre MD Peripheral arterial occlusive disease (Primary Dx); Lower extremity pain, bilateral; Severe claudication; Encounter for pre-operative examination; Lower limb ischemia; Atherosclerosis of arteries of extremities Discharge Disposition: Home or Self Care (01)06/07/20258800Lnbldv71/24/2025Telephone [facility] at [address] [phone] Batsheva Beckwith MD 06/02/2025Results Follow-Up [facility] [address] [phone] Carolyn Romo MA Basic metabolic panel05/31/2025 11:55 AM EDTLab [facility] Outpatient Draw Station [address] [place] [address] Xobcmgpsfbzz78/16/2025Results Follow-Up [facility] at [address] [phone] Batsheva Beckwith MD Urinalysis with microscopic, Microalbumin, urine, random, Creatinine, urine, random, Additional followed-up results: 2:55 PM EDTLab [facility] Outpatient Draw Station [address] [place] [phone] Kidney disease, chronic, stage IV (GFR 15-29 ml/min) (CMS/HCC); Essential hypertension; Hrkarlwrxoia19/15/2025 1:00 PM EDTOffice Visit [facility] [address] [facility] [place] [address] Batsheva Beckwith MD Kidney disease, chronic, stage IV (GFR 15-29 ml/min) ([facility]/HCC) (Primary Dx); Essential hypertension; Hyperkalemia; HFrEF (heart failure with reduced ejection fraction) ([facility]); Peripheral arterial bnbcwlb8705/25/2025Telephone [facility] Pre-Anesthesia Clinic [address] [place] [address] [place] [phone] Christopher Gongora, MÓNICA 05/24/2025 2:35 PM EDTLab [facility] Medical Pavilion Draw Station [address] [place] [address] [place] [phone] Lower extremity pain, bilateral; Severe claudication; Encounter for pre-operative pwexafhgqbx34/13/2025 1:30 PM EDTPre-Admission Testing [facility] Pre-Anesthesia Clinic [address] [place] [address] [place] [phone] 05/24/20250089Xjdbya14/06/2025Telephone [facility] [address] [facility] [place] [address] Batsheva Beckwith MD 05/14/2025bstract [facility] AUTHORIZATION DEPARTMENT [address] [place] [phone] Chris Andre MD 05/11/2025 10:30 AM EDT - 05/11/2025 11:30 AM EDTSurgery [facility] Heart and Vascular Center Vascular Lab [address] [place] [phone] Sarah Tolliver MD Coronary ojrmwhylymn62/30/2025 7:13 AM EDT - 05/11/2025 6:03 PM EDTHospital Encounter [facility] Heart and Vascular Center Vascular Lab [address] [place] [address] Sarah Tolliver MD Reduced ejection fraction concurrent with and due to acute heart failure (CMS/HCC) Discharge Disposition: Home or Self Care ()05/11/2025Travelfrom Last 3 Months Immunizations ImmunizationAdministration DatesNext DueInfluenza, High Dose Seasonal, Preservative Free06/19/2025Influenza, High-dose Seasonal, Quadrivalent, Preservative Free05/23/2021,08/03/2020Pneumococcal Conjugate PCV 13008/27/2019 Pneumococcal Polysaccharide XWL721210/04/2019 Family History Medical HistoryRelationNameCommentsDiabetesMotherMarionRelationNameStatus CommentsMotherMarion Social History Tobacco UseTypesPacks/DayYears UsedDateSmoking Tobacco: FormerCigarettes2.525 1968 - 1993Smokeless Tobacco: CurrentChewAlcohol UseStandard Drinks/WeekComments Not Currently0 (1 standard drink = 0.6 oz pure alcohol)PHQ-2AnswerDate Recorded Patient Health Questionnaire-2 Lopmg90208/14/2024Humiliation, Afraid, Rape, and Kick questionnaireAnswerDate RecordedWithin the [...] times a week06/15/2025How often do you attend advent or baptist services?Never06/15/2025Do you belong to any clubs or organizations such as advent groups, unions, fraternal or athletic groups, or school groups?No06/15/2025How often do you attend meetings of the clubs or organizations you belong to?Never06/15/2025re you , , , , never , or living with a partner?Nthmsrzkv45/04/2025UDIT-C AnswerDate RecordedQ1: How often do you have [...] medical care, and heating?Not hard at all06/29/2025 [facility] [place] of Occupational Health - Occupational Stress Questionnaire AnswerDate RecordedDo you feel stress - tense, restless, nervous, or anxious, or unable to sleep at night because yourmind is troubled all the time - these days? Only a qlxzyg0906/15/2025HC UtilitiesAnswerDate RecordedIn the past 12 months has the [employer], gas, oil, or water [employer] threatened to shut off services in your [...] Assigned at BirthMale 04/08/2025 7:15 AM EDTLegal MemJiac9002/07/2022 10:15 PM EDTGender IdentityMale 04/08/2025 7:15 AM EDTSexual OrientationHeterosexual or Wjwjdsgp21/28/2025 7:15 AM EDT Last Filed Vital Signs Vital SignReadingTime TakenCommentsBlood Ptyecxxo999/6807/22/2025 2:32 PM EST Gxpep644307/22/2025 2:26 PM DYGJejqhxblmlp13.9 ??C (96.6 ??F)07/01/2025 4:16 PM ESTRespiratory Kdub117809/04/2024 2:07 PM ESTOxygen Nrwzhmhdja65%07/22/2025 2:26 PM ESTroom air at restInhaled Oxygen Concentration--Tivadu00.3 kg (155 lb) 07/22/2025 2:26 PM BCYFjwexc000.1 cm (5' 5 )07/22/2025 2:26 PM ESTBody Mass Index25.7907/22/2025 2:26 PM EST Plan of Treatment DateTypeDepartmentCare Team (Latest Contact Info)Rjgazusvfom64/12/2026 1:30 PM ESTHospital Encounter [facility] Main Operating Room [address] [place] [address] Chris nAdre MD [address] [place] [address] 08/23/2025 1:30 PM EST - 08/23/2025 5:00 PM ESTSurgery [facility] Main Operating Room [address] [place] [address] Chris Andre MD [address] [place] [address] ENDARTERECTOMY, FEMORAL WITH POSSIBLE FEM TO POP CKRTGS1909/21/2025 11:00 AM EST Follow-Up [facility] Nephrology [address] [facility] [place] [address] Batsheva Beckwith MD [address] [facility] [address] [facility] [place] [phone] 10/21/2025 1:00 PM EDTAppointment [facility] CT Imaging [address] [place] [address] NamePriorityAssociated DiagnosesDate/TimeENDARTERECTOMY, FEMORAL Peripheral arterial occlusive disease Encounter for pre-operative examination 08/23/2025 1:30 PM ESTHealth MaintenanceDue DateLast DoneCommentsCT Colonography 1953FIT-DNA1953FIT1953Medicare Annual Wellness (AWV)1955 Uzvuquyfeitla1953dult Yitukjj8304/28/1975Zoster Vaccines (1 of 2)2003 COVID-19 Vaccine ( season), 11/08/2020, 10/19/2020epression Pfuprtwne42/10/20240373QUEB89Fall Risk Vqjtyccwy41/3846Kojrvtexjah99/20/203511/, 06/30/2025, 1Colorectal Cancer Dijurcsud84/20/2035Pneumococcal Vaccine: 50+ Years Sednvhacp60/23/2020, 08/27/2019Influenza XwldongWpszaanlv27/08/2025, 05/23/2021, 08/03/2020HIB VaccinesAged OutNo longer eligible based [...] ProblemsRecent ProgressPatient-Stated?Author Blood Pressure < 140/90 Blood Xzhpcgso019/68(07/22/2025 2:32 PM EST)Cy Child RN Medical Devices ImplantedTypeAreaManufacturerDevice IdentifierShelf Expiration DateModel / Serial / LotGraft,Thin-Wall,8x80cm,70cm - [id number] - [id number] Implanted:Qty: 1 on 06/07/2025 by [facility]: Desirae [id number] / [id number] / N/A Procedures Procedure NamePriorityDate/TimeAssociated DiagnosisCommentsXR TRANSFER OF OUTSIDE ETJXBEvzipps15/11/2025 12:[address] TRANSFER OF OUTSIDE DINXYDrvpdho71/11/2025 12:00 AM EST MKOGmxgkfm42/24/2025 1:47 PM EST Lower GI bleed BASIC METABOLIC JFPWMVynxpqu45/24/2025 1:47 PM EST Lower GI bleed BASIC METABOLIC VUEQLPVTC87/20/2025 4:17 PM EST DIAGNOSTIC ZEBCZWXTYWWGgxpeqg61/20/2025 2:36 PM EST BLOOD GAS, VENOUSPending Mfhcfnpog79/20/2025 11:28 AM EST POCT GLUCOSE METER UNSOLICITED WJPNVFFPlnbnki26/20/2025 9:23 AM EST HEMOGLOBIN AND HEMATOCRIT, BLOODPending Olkdvzgtk49/20/2025 6:51 AM EST BASIC METABOLIC PANELSTAT Add-on07/01/2025 6:00 AM EST LIGHT GREEN GCCIpnntsg41/20/2025 6:00 AM EST EXTRA FUJNNGoidcuk83/20/2025 6:00 AM EST POCT GLUCOSE METER UNSOLICITED EEIFBSSQjrrnzr21/19/2025 8:10 PM EST POCT GLUCOSE METER UNSOLICITED ZBMDYZOHiwuuba14/19/2025 4:08 PM EST POCT GLUCOSE METER UNSOLICITED YQARLRFXvgaiol25/19/2025 3:46 PM EST POCT GLUCOSE METER UNSOLICITED TIIKYLMUczsrxe86/19/2025 3:24 PM EST POCT GLUCOSE METER UNSOLICITED PNCUIDFTheaoqe76/19/2025 3:01 PM EST DIAGNOSTIC ZAXQMCEPARMNkaqhiq34/19/2025 2:25 PM EST POCT GLUCOSE METER UNSOLICITED WDCWQZRDbmewfm05/19/2025 1:23 PM EST UDGWLOBXHMFLTH00/18/2025 11:10 PM EST VYQBJSJLTQIHOD72/18/2025 5:47 PM EST HEMOGLOBIN AND HEMATOCRIT, CCSKYAEKP03/18/2025 9:18 AM EST TRANSFUSE RED BLOOD FPYNCIzdoria33/18/2025 5:50 AM ESTCBC WITH AUTO DIFFERENTIAL STAT108/29/2024 5:45 AM EST CBC AND JBJAZVEUTHOJVnbljkq76/18/2025 5:45 AM EST COMPREHENSIVE METABOLIC UCTBLOgnmvcq32/18/2025 5:45 AM EST TRANSFUSE RED BLOOD DYATPZihefzz27/18/2025 3:00 AM ESTPREPARE RBCRoutine 06/29/2025 1:40 AM EST TYPE AND HVAXQKIKBP06/18/2025 12:33 AM EST HEMOGLOBIN AND HEMATOCRIT, POXTHNWPV03/18/2025 12:33 AM EST CTA ABDOMEN PELVIS W IV KJTPZXJCMPRC01/17/2025 9:14 PM EST POCT OCCULT BLOOD WUTPRKJFZ75/17/2025 7:15 PM EST CBC WITH AUTO QAPLRGDULGEMROSL12/17/2025 6:39 PM EST COMPREHENSIVE METABOLIC BALJHSNEX66/17/2025 6:39 PM EST CBC AND MLOZMYBTAPJPZXDL02/17/2025 6:39 PM EST HIGH SENSITIVITY TROPONIN ISTAT108/26/2024 4:40 PM EST CTA AORTA AND BILATERAL ILIOFEMORAL RUNOFF W IV RVLPTSYKQMFT97/15/2025 4:[address] CERVICAL SPINE WO IV RGPRDLIRIZZN62/15/2025 4:[address] HEAD WO IV LNROATOIVPHR98/15/2025 4:39 PM EST XR HAND 3+ VIEWS PYHBQUAP61/15/2025 3:45 PM EST CBC WITH AUTO DPPXGTLQGCRFTIAZ19/15/2025 2:45 PM EST CK TOTAL AND CKMBSTAT Add-on06/26/2025 2:45 PM EST RCTPKMWK76/15/2025 2:45 PM EST PROTIME-PNQGYLB5606/26/2025 2:45 PM EST HIGH SENSITIVITY TROPONIN ISTAT11/ 2:45 PM EST COMPREHENSIVE METABOLIC PHFLJKZUX56/15/2025 2:45 PM EST CBC AND ZKQADELSZBNQCCDS42/15/2025 2:45 PM EST XR CHEST 1 HIEGCCOW47/15/2025 2:20 PM EST XR PELVIS 1-2 OXRHFNKWP69/15/2025 2:20 PM EST XR HAND 3+ VIEWS BUGRZLJR67/15/2025 2:03 PM EST PROTIME-MSGUbvhkmz09/14/2025 3:29 PM EST Peripheral arterial occlusive disease Encounter for pre-operative examination COKGRvvorkm45/14/2025 3:29 PM EST Peripheral arterial occlusive disease Encounter for pre-operative examination LXOSmdpphe28/14/2025 3:29 PM EST Chronic kidney disease, unspecified CKD stage SUBTVEKKMGIsnfzqg01/14/2025 3:29 PM EST Chronic kidney disease, unspecified CKD stage CWNEDBJEIZpivado79/14/2025 3:29 PM EST Chronic kidney disease, unspecified CKD stage BASIC METABOLIC TTFDULlbdhzw87/14/2025 3:29 PM EST Chronic kidney disease, unspecified CKD stage MAGNESIUMPending Tsrmekyhr30/08/2025 4:47 AM EST POCT GLUCOSE METER UNSOLICITED XVCHYUYJdmwekq32/07/2025 10:12 PM EST MAGNESIUMPending Jwkptvkvk48/07/2025 5:07 AM EST BASIC METABOLIC PANELPending Pshxedqib28/07/2025 5:07 AM EST CBCPending Siztthghp60/07/2025 5:07 AM EST VANCOMYCIN TIMEDPending Eylgzmvpz82/06/2025 4:31 AM EST MAGNESIUMPending Itqvwvmwo57/06/2025 4:31 AM EST BASIC METABOLIC PANELPending Etdtvaprk59/06/2025 4:31 AM EST CBCPending Qbisycaff44/06/2025 4:31 AM EST VANCOMYCIN WCORFNzdna11/05/2025 9:11 PM EST XMOMBWDJZVanhopn60/05/2025 5:08 AM EST BASIC METABOLIC FGRGKSjvirep86/05/2025 5:08 AM EST JBKAqwpuev79/05/2025 5:[address] HEAD WO IV PLFRKAMENCVB48/04/2025 7:57 PM EST CBC WITH AUTO EKYPCTEOQPAOAPYB84/04/2025 7:37 PM EST LACTIC ACID WITH 4 HOUR EWTELHKQYZ38/04/2025 7:37 PM EST BASIC METABOLIC FGOYGHLKK49/04/2025 7:37 PM EST CBC AND HHOGCRWFXSGJBKJX67/04/2025 7:37 PM EST BLOOD HRLBDOJFCVJ58/04/2025 7:37 PM EST BLOOD YTGERCBJUNQ64/04/2025 7:37 PM EST WOUND MZYZZRFFQBO69/04/2025 5:59 PM EST PREPARE IIZNrwbbzk27/30/2025 7:53 AM EDT VASC US LOWER EXTREMITY ARTERIAL DUPLEX BYPASS GRAFT VBBQVVjxqpnc60/29/2025 9:51 AM EDT LIGHT GREEN TRYXshdzhs33/29/2025 3:56 AM EDT EXTRA QOVNYImbmtjl17/29/2025 3:56 AM EDT CBCPending Towayvhnh51/29/2025 3:56 AM EDT YXJRqucqab98/28/2025 4:11 AM EDT YKVWAULOGVCyvbtfr26/28/2025 4:11 AM EDT VMIGZTQQHIffebye77/28/2025 4:11 AM EDT BASIC METABOLIC CCQDPBthjzrc90/28/2025 4:11 AM EDT ITXZIVOKOVDNXI71/27/2025 8:18 PM EDT PFIGPUBIAIBUT23/27/2025 8:18 PM EDT BASIC METABOLIC EEDTHXINU84/27/2025 8:18 PM EDT OOHOPVT6006/07/2025 8:18 PM EDT INVASIVE VASCULAR DADORETJBFkjnjyw50/27/2025 6:16 PM EDT Lower extremity pain, bilateral Severe claudication Encounter for pre-operative examination POCT ACTIVATED CLOTTING TIME UNSOLICITED EQJAYLJMjkcoyq16/27/2025 5:44 PM EDT HISTOLOGY - TISSUE TWOMGqdwudt89/27/2025 5:44 PM EDT Lower extremity pain, bilateral Severe claudication Encounter for pre-operative examination ABG COMPLETE UNSOLICITED IWMPCGPNixweao18/27/2025 5:43 PM EDT KS AN ELECTIVE ENDOTRACHEAL ODCDTICvvxiwg27/27/2025 3:09 PM EDT ENDARTERECTOMY, EHSCLLT2206/07/2025 2:51 PM EDT Lower extremity pain, bilateral Severe claudication Encounter for pre-operative examination KS BYPASS W/VEIN FEMORAL-RZEIVHSKE02/27/2025 2:51 PM EDT Lower extremity pain, bilateral Severe claudication Encounter for pre-operative examination ANESTHESIA ARTERIAL LINE LABWSQVFWJywmsgu46/27/2025 12:38 PM EDT POCT GLUCOSE METER UNSOLICITED VWMGSQNNmxntqw40/27/2025 9:57 AM EDT BASIC METABOLIC HZZXRUvieess99/20/2025 11:59 AM EDT Hyperkalemia PTH, FUHNSHBohdmta26/15/2025 2:54 PM EDT Kidney disease, chronic, stage IV (GFR 15-29 ml/min) ([facility]) Essential hypertension Hyperkalemia VITAMIN D 25 XGVILJZSgbaxbh75/15/2025 2:54 PM EDT Kidney disease, chronic, stage IV (GFR 15-29 ml/min) ([facility]) Essential hypertension Hyperkalemia ODQSCLSFZODjiwtyw97/15/2025 2:54 PM EDT Kidney disease, chronic, stage IV (GFR 15-29 ml/min) ([facility]) Essential hypertension Hyperkalemia EZYKRQYWEZhrbusg68/15/2025 2:54 PM EDT Kidney disease, chronic, stage IV (GFR 15-29 ml/min) ([facility]) Essential hypertension Hyperkalemia HNSUgdngvj88/15/2025 2:54 PM EDT Kidney disease, chronic, stage IV (GFR 15-29 ml/min) ([facility]) Essential hypertension Hyperkalemia BASIC METABOLIC OYEVCLsujjmx73/15/2025 2:54 PM EDT Kidney disease, chronic, stage IV (GFR 15-29 ml/min) ([facility]) Essential hypertension Hyperkalemia CREATININE, URINE, DTRNNKVdoxdfw96/15/2025 2:54 PM EDT Kidney disease, chronic, stage IV (GFR 15-29 ml/min) ([facility]) Essential hypertension Hyperkalemia MICROALBUMIN, URINE, MSKLTWHxzmrzf90/15/2025 2:54 PM EDT Kidney disease, chronic, stage IV (GFR 15-29 ml/min) ([facility]) Essential hypertension Hyperkalemia URINALYSIS WITH QUHSOISSSSOSidsosw46/15/2025 2:54 PM EDT Kidney disease, chronic, stage IV (GFR 15-29 ml/min) ([facility]) Essential hypertension Hyperkalemia PREPARE ZJJWBJC06/13/2025 4:02 PM EDT TYPE AND VRWTAYUzfduca95/13/2025 2:48 PM EDT Severe claudication Encounter for pre-operative examination QUIENjpzqdu96/13/2025 2:48 PM EDT Lower extremity pain, bilateral Severe claudication Encounter for pre-operative examination PROTIME-FTNQcvuttj25/13/2025 2:48 PM EDT Lower extremity pain, bilateral Severe claudication Encounter for pre-operative examination BASIC METABOLIC OOPYPWqpclon09/13/2025 2:48 PM EDT Lower extremity pain, bilateral Severe claudication Encounter for pre-operative examination SGDCruirqi34/13/2025 2:48 PM EDT Lower extremity pain, bilateral Severe claudication Encounter for pre-operative examination MRSA/MSSA DNA RZJFXGdqxoec23/13/2025 2:48 PM EDT Lower extremity pain, bilateral Severe claudication Encounter for pre-operative examination CORONARY BYPASS GRAFT ZDEDBKcltugh69/30/2025 12:47 PM EDT Reduced ejection fraction concurrent with and due to acute heart failure (CMS/HCC) CORONARY UXMQLQWWHGSHxfxcpx54/30/2025 12:47 PM EDT Reduced ejection fraction concurrent with and due to acute heart failure (CMS/HCC) ECG 12-RBPIJxnbjlw44/30/2025 8:08 AM EDT from Last 3 Months [...] result. Authorizing ProviderResult TypeResult StatusZaid Vinod MDIMG CT PROCEDURESFinal ResultPerforming OrganizationAddressCity/State/ZIP CodePhone Number IMAGING * (ABNORMAL) CBC (07/05/2025 1:47 PM EST) Only the most recent of10 resultswithin the time period is included. ComponentValueRef RangeTest MethodAnalysis TimePerformed AtPathologist Signature Auto WBC4.414.00 - 10.60 10*3/uL07/05/2025 2:05 PM [facility] ([facility] RBC3.46(L)4.20 - 5.70 10*6/uL07/05/2025 2:05 PM [facility] ([facility] Rhuohpytdj07.1(L)13.0 - 17.0 g/dL07/05/2025 2:05 PM [facility] ([facility]Hiohixknpp50.3(L)39.0 - 50.0 %07/05/2025 2:05 PM [facility] ([facility]MCV93.482.0 - 98.0 fL07/05/2025 2:05 PM [facility] ([facility] MCH29.227.0 - 33.0 pg07/05/2025 2:05 PM [facility] ([facility]MCHC31.3(L) 32.0 - 35.0 g/dL07/05/2025 2:05 PM [facility] ([facility]RDW15.1(H)11.5 - 15.0 %07/05/2025 2:05 PM [facility] ([facility]Vpwtlqdbb855(L)150 - 400 10*3/uL07/05/2025 2:05 PM [facility] ([facility]Specimen (Source) Anatomical Location / LateralityCollection Method / VolumeCollection Time Received TimeBloodVenous blood specimen / UnknownVenipuncture / Unknown 07/05/2025 1:47 PM EST07/05/2025 1:54 PM EST Narrative Authorizing ProviderResult TypeResult StatusKyu Sammy Newsome MDLAB BLOOD ORDERABLESFinal ResultPerforming OrganizationAddressCity/State/ZIP CodePhone Number [facility] ([facility] [address] [place] [address] * (ABNORMAL) Basic metabolic panel (07/05/2025 1:47 PM EST) Only the most recent of13 resultswithin the time period is included. ComponentValueRef RangeTest MethodAnalysis TimePerformed AtPathologist Signature Lskjbi098962 - 145 mmol/L109/04/2024 2:18 PM [facility] ([facility] Potassium4.83.5 - 5.1 mmol/L109/04/2024 2:18 PM [facility] ([facility] Qtynmeqt030(H)98 - 107 mmol/L109/04/2024 2:18 PM [facility] ([facility]CO2 2421 - 31 mmol/L109/04/2024 2:18 PM [facility] ([facility]RGT704 - 25 mg/dL07/05/2025 2:18 PM [facility] ([facility]Creatinine1.45(H)0.70 - 1.30 mg/dL07/05/2025 2:18 PM [facility] ([facility]Thdhanx3757 - 100 mg/dL07/05/2025 2:18 PM [facility] ([facility]Calcium8.68.6 - 10.3 mg/dL 07/05/2025 2:18 PM [facility] ([facility]Anion Gap97 - 20 mmol/L 07/05/2025 2:18 PM [facility] ([facility]eGFR51.2(L)>60.0 mL/min/1.73m*2 07/05/2025 2:18 PM [facility] ([facility]Comment:[facility]???s estimated glomerular filtration rate (eGFR) will no [...] group of individuals. BUN/Creatinine Ratio15. 2:18 PM [facility] ([facility]Specimen (Source)Anatomical Location / LateralityCollection Method / VolumeCollection TimeReceived TimeBloodVenous blood specimen / UnknownVenipuncture / Unknown 07/05/2025 1:47 PM EST07/05/2025 1:53 PM EST Narrative Authorizing ProviderResult TypeResult StatusFrench Newsome [facility] BLOOD ORDERABLESFinal ResultPerforming OrganizationAddressCity/State/ZIP CodePhone Number [facility] ([facility] [address] [place] [address] * Diagnostic Colonoscopy (07/01/2025 2:36 PM EST)Anatomical [...] on 07/01/25 Attending Physician: ??Christie Horton MD [employer]: ??Maria Eugenia Dodd MD Procedure Details Informed [...] for the entire procedure. Authorizing ProviderResult TypeResult StatusChristie Horton MDENDOSCOPY PROCEDURE ORDERABLESFinal Result * (ABNORMAL) Blood Gas, Venous (07/01/2025 11:28 AM EST)ComponentValueRef Range Test MethodAnalysis TimePerformed AtPathologist SignaturepH, Ven7.28(L)7.31 - 7.41108/31/2024 11:42 AM [facility] RESPIRATORY THERAPYpCO2, Giu3627 - 50 mmHg 07/01/2025 11:42 AM [facility] RESPIRATORY THERAPYpO2, Ven26(L)35 - 45 mmHg 07/01/2025 11:42 AM [facility] RESPIR[facility]ORY THERAPYO2 Sat, Ven34.0(LL)65.0 - 75.0 %07/01/2025 11:42 AM [facility] RESPIRATORY THERAPYHCO3, Bkdutd08.2mmol/L 07/01/2025 11:42 AM [facility] RESPIRATORY THERAPYOxyhemoglobin, Ptduqs70.3% 07/01/2025 11:42 AM [facility] RESPIRATORY THERAPYpH Venous Temp Adjusted7.28(L) 7.31 - 7.41108/31/2024 11:42 AM [facility] RESPIRATORY THERAPYpCO2 Venous Temp Bjbkssvb2126 - 50 mmHg07/01/2025 11:42 AM [facility] RESPIRATORY THERAPYpO2 Venous Temp Skcygxop68(L)35 - 45 mmHg07/01/2025 11:42 AM [facility] RESPIRATORY NIBLUWCDcnmpazcyav46.0??07/01/2025 11:42 AM [facility] RESPIRATORY THERAPY Specimen (Source)Anatomical Location / LateralityCollection Method / Volume Collection TimeReceived TimeBloodVenous blood specimen / UnknownVenipuncture / Axppgvj5807/01/2025 11:28 AM EST07/01/2025 11:38 AM EST Narrative Authorizing ProviderResult TypeResult StatusFrenhc CEE BLOOD ORDERABLESFinal ResultPerforming OrganizationAddressCity/State/ZIP CodePhone Number [facility] RESPIRATORY THERAPY [address] [place] [address], * POCT glucose meter (07/01/2025 9:23 AM EST) Only the most recent of9 resultswithin the time period is included. ComponentValueRef RangeTest MethodAnalysis TimePerformed AtPathologist Signature Glucose XKR3996 - 105 mg/dL07/01/2025 9:34 AM [facility] ([facility] Comment:jdlugolSpecimen (Source)Anatomical Location / LateralityCollection Method / VolumeCollection TimeReceived TimeBloodCapillary blood specimen / Aeyiqcs1107/01/2025 9:23 AM EST07/01/2025 9:34 AM EST Narrative [facility]) - 07/01/2025 9:34 AM EST Waived Testing in the ED is performed under the ED CLIA certificate #[id number]. Authorizing ProviderResult TypeResult StatusFrench CEE BLOOD ORDERABLESFinal ResultPerforming OrganizationAddressCity/State/ZIP CodePhone Number [facility] ([facility] [address] [place] [address] * (ABNORMAL) Hemoglobin and hematocrit, blood (07/01/2025 6:51 AM EST) Only the most recent of3 resultswithin the time period is included. ComponentValueRef RangeTest MethodAnalysis TimePerformed AtPathologist Signature Jeysfsjmwy46.3(L)13.0 - 17.0 g/dL07/01/2025 7:16 AM [facility])Fhqmjjmtgd22.8(L)39.0 - 50.0 %07/01/2025 7:16 AM [facility])Specimen (Source)Anatomical Location / LateralityCollection Method / VolumeCollection TimeReceived TimeBloodVenous blood specimen / Unknown Venipuncture / Lnrlevi2207/01/2025 6:51 AM EST07/01/2025 6:56 AM EST Narrative Authorizing ProviderResult TypeResult StatusChris CEE BLOOD ORDERABLES Final ResultPerforming OrganizationAddressCity/State/ZIP CodePhone Number [facility]) [address] [place] [address] * Light Green Top (07/01/2025 6:00 AM EST) Only the most recent of2 resultswithin the time period is included. ComponentValueRef RangeTest MethodAnalysis TimePerformed AtPathologist Signature Extra TubeHold for add-ons.07/01/2025 8:01 AM [facility] ([place]) Comment:Auto resulted.Specimen (Source)Anatomical Location / Laterality Collection Method / VolumeCollection TimeReceived TimeBloodVenous blood specimen / Piqdcyh9507/01/2025 6:00 AM EST07/01/2025 6:57 AM EST Narrative Authorizing ProviderResult TypeResult StatusKydiana Newsome MD[facility] BLOOD ORDERABLESFinal ResultPerforming OrganizationAddressCity/State/ZIP CodePhone Number [facility] ([place]) [address] [place] [address] * Diagnostic Colonoscopy (06/30/2025 2:25 PM EST)Anatomical [...] on 06/30/25 Attending Physician: ??Kortney Gandhi MD [employer]: ??None Procedure Details Informed consent was obtained [...] included. ComponentValueRef RangeTest MethodAnalysis TimePerformed AtPathologist Signature Doqztujokm57.5(L)13.0 - 17.0 g/dL06/30/2025 12:47 AM [facility] ([facility]Specimen (Source)Anatomical Location / LateralityCollection Method / VolumeCollection TimeReceived TimeBloodVenous blood specimen / Unknown Venipuncture / Brgyrkl7806/29/2025 11:10 PM EST06/30/2025 12:13 AM EST Narrative Authorizing ProviderResult TypeResult StatusGerman CEE BLOOD ORDERABLES Final ResultPerforming OrganizationAddressCity/State/ZIP CodePhone Number [facility] ([place]) [address] [place] [address] * Transfuse RBC (06/29/2025 8:09 AM EST) Only the most recent of2 resultswithin the time period is included. Narrative Authorizing ProviderResult TypeResult StatusObi VELAOOD TRANSFUSION ORDERABLESFinal Result * (ABNORMAL) CBC auto differential (06/29/2025 5:45 AM EST) Only the most recent of4 resultswithin the time period is included. ComponentValueRef RangeTest MethodAnalysis TimePerformed AtPathologist Signature Auto WBC4.904.00 - 10.60 10*3/uL06/29/2025 6:07 AM [facility] ([facility] RBC3.01(L)4.20 - 5.70 10*6/uL06/29/2025 6:07 AM [facility] ([facility] Hemoglobin8.9(L)13.0 - 17.0 g/dL06/29/2025 6:07 AM [facility] ([facility] Nycocpgvte68.6(L)39.0 - 50.0 %06/29/2025 6:07 AM [facility] ([facility] MCV95.082.0 - 98.0 fL06/29/2025 6:07 AM [facility] ([facility]MCH29.627.0 - 33.0 pg06/29/2025 6:07 AM [facility] ([facility]MCHC31.1(L)32.0 - 35.0 g/dL06/29/2025 6:07 AM [facility] ([facility]RDW15.3(H)11.5 - 15.0 % 06/29/2025 6:07 AM [facility] ([facility]Neutrophils %75.1(H)40.0 - 72.0 %06/29/2025 6:07 AM [facility] ([facility]Lymphocytes %12.7(L)20.0 - 45.0 %06/29/2025 6:07 AM [facility] ([facility]Monocytes %7.35.0 - 12.0 % 06/29/2025 6:07 AM [facility] ([facility]Eosinophils %3.30.0 - 6.0 % 06/29/2025 6:07 AM [facility] ([facility]Basophils %0.80.0 - 1.0 % 06/29/2025 6:07 AM [facility] ([facility]Neutrophils Absolute3.681.60 - 7.60 10*3/uL06/29/2025 6:07 AM [facility] ([facility]Lymphocytes Absolute 0.62(L)1.20 - 4.00 10*3/uL06/29/2025 6:07 AM [facility] ([facility] Monocytes Absolute0.360.10 - 1.00 10*3/uL06/29/2025 6:07 AM [facility] ([facility]Eosinophils Absolute0.160.00 - 0.50 10*3/uL06/29/2025 6:07 AM [facility] ([facility]Basophils Absolute0.040.00 - 0.20 10*3/uL06/29/2025 6:07 AM [facility] ([facility]Bcvejhusb971(L)150 - 400 10*3/uL06/29/2025 6:07 AM [facility] ([facility]nRBC %0.00 %06/29/2025 6:07 AM [facility] ([facility]Immature Granulocytes %0.80.0 - 1.0 %06/29/2025 6:07 AM [facility] ([facility]Immature Granulocytes Absolute0.040.00 - 0.20 10*3/uL06/29/2025 6:07 AM [facility] ([facility]Specimen (Source)Anatomical Location / LateralityCollection Method / VolumeCollection TimeReceived TimeBloodVenous blood specimen / UnknownVenipuncture / Umbepud2706/29/2025 5:45 AM EST06/29/2025 5:59 AM EST Narrative Authorizing ProviderResult TypeResult StatusIdrees Vivek CEE BLOOD ORDERABLESFinal ResultPerforming OrganizationAddressCity/State/ZIP CodePhone Number [facility] ([facility] [address] [place] [address] * (ABNORMAL) Comprehensive metabolic panel (06/29/2025 5:45 AM EST) Only the most recent of3 resultswithin the time period is included. ComponentValueRef RangeTest MethodAnalysis TimePerformed AtPathologist Signature Stgsif458333 - 145 mmol/L108/29/2024 6:30 AM [facility] ([facility] Potassium5.13.5 - 5.1 mmol/L108/29/2024 6:30 AM [facility] ([facility] Fytsanbn957(H)98 - 107 mmol/L108/29/2024 6:30 AM [facility] ([facility]CO2 2121 - 31 mmol/L108/29/2024 6:30 AM [facility] ([facility]Anion Wax703 - 20 mmol/L108/29/2024 6:30 AM [facility] ([facility]DAV386 - 25 mg/dL 06/29/2025 6:30 AM [facility] ([facility]Creatinine1.63(H)0.70 - 1.30 mg/dL06/29/2025 6:30 AM [facility] ([facility]BUN/Creatinine Ratio14.1 06/29/2025 6:30 AM [facility] ([facility]Iqlbvnv1215 - 100 mg/dL 06/29/2025 6:30 AM [facility] ([facility]Calcium8.68.6 - 10.3 mg/dL 06/29/2025 6:30 AM [facility] ([facility]AST49(H)13 - 39 U/L108/29/2024 6:30 AM [facility] ([facility]ALT (SGPT)457 - 52 U/L108/29/2024 6:30 AM [facility] ([facility]Alkaline Mqiopszodir428(H)34 - 104 U/L108/29/2024 6:30 AM [facility] ([facility]Total Protein5.9(L)6.0 - 8.3 g/dL06/29/2025 6:30 AM [facility] ([facility]Albumin3.53.5 - 5.7 g/dL06/29/2025 6:30 AM [facility] ([facility]Total Bilirubin1.1(H)0.3 - 1.0 mg/dL06/29/2025 6:30 AM [facility] ([facility]eGFR44.5(L)>60.0 mL/min/1.73m* 6:30 AM [facility] ([facility]Comment:[facility]???s estimated glomerular filtration rate (eGFR) will no [...] CEE BLOOD ORDERABLESFinal ResultPerforming OrganizationAddressCity/State/ZIP CodePhone Number [facility] ([facility]) [address] [place] [address] * Prepare RBC: 2 Units (06/29/2025 1:40 AM EST) Only the most recent of3 resultswithin the time period is included. ComponentValueRef RangeTest MethodAnalysis TimePerformed AtPathologist Signature PRODUCT [id number] BLOOD BANKUnit [id number] BLOOD BANKUnit [facility] BLOOD BANKUnit [facility] BLOOD BANKCrossmatch InterpretationPARKLAND HEALTH CENTER BLOOD BANKDispense StatusKAYENTA [facility] BLOOD BANKBlood Expiration [id number] BLOOD BANKProduct Blood [id number] BLOOD BANKUnit [id number] BLOOD BANK PRODUCT [id number] BLOOD BANKUnit [id number] BLOOD BANKUnit [facility] BLOOD BANKUnit [facility] BLOOD BANKCrossmatch InterpretationPARKLAND HEALTH CENTER BLOOD BANKDispense StatusKAYENTA [facility] BLOOD BANKBlood Expiration [id number] BLOOD BANKProduct Blood [id number] BLOOD BANKSpecimen (Source)Anatomical Location / LateralityCollection Method / VolumeCollection TimeReceived TimeOther 06/29/2025 1:40 AM EST Narrative Authorizing ProviderResult TypeResult StatusIdrees Vivek VELAOOD BANK PRODUCT ORDERABLESFinal ResultPerforming OrganizationAddressCity/State/ZIP Code Phone Number [facility] * Type and screen (06/29/2025 12:33 AM EST) Only the most recent of2 resultswithin the time period is included. ComponentValueRef RangeTest MethodAnalysis TimePerformed AtPathologist Signature ABO KdajaxhhU38/18/2025 2:08 AM [facility] BLOOD BANKRh XfnhQIC1506/29/2025 2:08 AM [facility] BLO[facility] BANKAb RkqxTSB8506/29/2025 2:08 AM [facility] BLOOD BANKSpecimen (Source)Anatomical Location / LateralityCollection Method / VolumeCollection TimeReceived TimeBloodVenous blood specimen / UnknownVenipuncture / Unknown 06/29/2025 12:33 AM EST06/29/2025 12:58 AM EST Narrative Authorizing ProviderResult TypeResult StatusNasheed Moisés [facility] BLOOD BANK TEST ORDERABLESFinal ResultPerforming OrganizationAddressCity/State/ZIP Code Phone Number [facility] * CTA Abdomen Pelvis [...] disease. Celiac artery: ??Patent. Atherosclerotic disease causing qhdq-mz-mrcxycnd ostial stenosis. Superior mesenteric artery: ??Patent. Atherosclerotic [...] disease. Celiac artery: Patent. Atherosclerotic disease causing zrkr-eu-vsfxwfehfukttb stenosis. Superior mesenteric artery: Patent. Atherosclerotic disease [...] Location / LateralityCollection Method / VolumeCollection TimeReceived CrjhTehdr04/17/2025 7:15 PM EST Narrative Authorizing ProviderResult TypeResult StatusNasheed Moisés MDPOINT OF CARE TEST ENTER/EDIT ORDERABLESFinal Result * High Sensitivity Troponin I (06/26/2025 4:40 PM EST) Only the most recent of2 resultswithin the time period is included. ComponentValueRef RangeTest MethodAnalysis TimePerformed AtPathologist Signature High Sensitivity Troponin I8<20 ng/L108/26/2024 5:13 PM [facility] ([place])Specimen (Source)Anatomical Location / LateralityCollection Method / VolumeCollection TimeReceived TimeBloodVenous blood specimen / Unknown Venipuncture / Ysbdhpt1406/26/2025 4:40 PM EST06/26/2025 4:43 PM EST Narrative Authorizing ProviderResult TypeResult StatusBrayan Gutierrez MDLAB BLOOD ORDERABLESFinal ResultPerforming OrganizationAddressCity/State/ZIP CodePhone Number [facility] ([facility]) [address] [place] [address] * CTA Aorta And Bilateral Iliofemoral Runoff [...] findings in this report. Electronically signed: Misha eFrrara. Narrative 06/26/2025 7:25 PM EST History: Leg [...] Misha Ferrara. Authorizing ProviderResult TypeResult StatusAndresarah Gutierrez MDIMG CT PROCEDURES Final Result * CT cervical spine wo IV contrast (06/26/2025 4:39 PM EST)Anatomical Region LateralityModalitySpine, C-spineComputed TomographySpecimen (Source)Anatomical Location / LateralityCollection Method / VolumeCollection TimeReceived Time 06/26/2025 5:12 PM EST Impressions 06/26/2025 5:28 PM EST No evidence of acute fracture or traumatic malalignment involving the cervical spine. Approved by:Manohar Ríos08/26/2024 5:21 PM. I, [...] signed: Misha Ferrara. Authorizing ProviderResult TypeResult StatusAndsunshine Gutierrez [facility]ED[facility] Final Result * CT head [...] Misha Ferrara. Authorizing ProviderResult TypeResult StatusAndresarah Gutierrez [facility] PROCED[facility] Final Result * XR hand [...] MethodAnalysis TimePerformed AtPathologist Signature aPTT28.725.0 - 35.0 Gjiitid2306/26/2025 3:15 PM [facility] ([facility] Comment:Clinical significance of the APTT is questionable in the presence of heparin.Specimen (Source)Anatomical Location / LateralityCollection Method / VolumeCollection TimeReceived TimeBloodVenous blood specimen / Unknown Venipuncture / Gqzepea5106/26/2025 2:45 PM EST06/26/2025 2:53 PM EST Narrative Authorizing ProviderResult TypeResult StatusBrayan CEE BLOOD ORDERABLESFinal ResultPerforming OrganizationAddressCity/State/ZIP CodePhone Number [facility] ([facility] [address] [place] [address] * (ABNORMAL) Protime-INR (06/26/2025 2:45 PM EST) Only the most recent of3 resultswithin the time period is included. ComponentValueRef RangeTest MethodAnalysis TimePerformed AtPathologist Signature Icaznxd42.412.3 - 14.8 Zpfzbnm6506/26/2025 3:15 PM [facility] ([facility] INR1.12(H)0.90 - 1.10108/26/2024 3:15 PM [facility] ([facility]Comment: ACCCP RECOMMENDED INR FOR WARFARIN THERAPY CONDITION [...] TimeReceived TimeBloodVenous blood specimen / UnknownVenipuncture / Ykknxbf2706/26/2025 2:45 PM EST06/26/2025 2:53 PM EST Narrative Authorizing ProviderResult TypeResult StatusAndresarah CEE BLOOD ORDERABLESFinal ResultPerforming OrganizationAddressCity/State/ZIP CodePhone Number [facility] ([facility] [address] [place] [address] * (ABNORMAL) CK total and CKMB (06/26/2025 2:45 PM EST)ComponentValueRef Range Test MethodAnalysis TimePerformed AtPathologist SignatureTotal CK158.030.0 - 223.0 U/L108/26/2024 4:02 PM [facility] ([facility]CK-MB Index2.2(H)0.0 - 1.9108/26/2024 4:02 PM [facility])CK-MB3.50.0 - 5.0 ng/mL 06/26/2025 4:02 PM [facility] ([place])Specimen (Source)Anatomical Location / LateralityCollection Method / VolumeCollection TimeReceived Time BloodVenous blood specimen / UnknownVenipuncture / Exvobak4506/26/2025 2:45 PM EST06/26/2025 2:54 PM EST Narrative Authorizing ProviderResult TypeResult StatusBrayan CEE BLOOD ORDERABLESFinal ResultPerforming OrganizationAddressCity/State/ZIP CodePhone Number [facility] ([facility]) [address] [place] [address] * XR chest 1 view (06/26/2025 2:20 [...] signed: Jose Avila. Authorizing ProviderResult TypeResult Chrystal PEREZG XR PROCEDURES Final Result * XR [...] Signature Phosphorus3.02.5 - 5.0 mg/dL06/25/2025 4:43 PM [facility]) Specimen (Source)Anatomical Location / LateralityCollection Method / Volume Collection TimeReceived TimeBloodVenous blood specimen / UnknownVenipuncture / Mdxyrwb2406/25/2025 3:29 PM EST06/25/2025 3:49 PM EST Narrative Authorizing ProviderResult TypeResult StatusBatsheva CEE BLOOD ORDERABLES Final ResultPerforming OrganizationAddressCity/State/ZIP CodePhone Number [facility]) [address] [place] [address] * Magnesium (06/25/2025 3:29 PM EST) Only the most recent of8 resultswithin the time period is included. ComponentValueRef RangeTest MethodAnalysis TimePerformed AtPathologist Signature Magnesium1.91.9 - 2.7 mg/dL06/25/2025 4:43 PM [facility]) Specimen (Source)Anatomical Location / LateralityCollection Method / Volume Collection TimeReceived TimeBloodVenous blood specimen / UnknownVenipuncture / Ykkzhux3406/25/2025 3:29 PM EST06/25/2025 3:49 PM EST Narrative Authorizing ProviderResult TypeResult StatusBatsheva CEE BLOOD ORDERABLES Final ResultPerforming OrganizationAddressCity/State/ZIP CodePhone Number [facility]) [address] [place] [address] * (ABNORMAL) Vancomycin Timed (06/17/2025 4:31 AM EST) Only the most recent of2 resultswithin the time period is included. ComponentValueRef RangeTest MethodAnalysis TimePerformed AtPathologist Signature Vancomycin Timed16.7(L)20.0 - 40.011 5:31 AM [facility] ([facility]Specimen (Source)Anatomical Location / LateralityCollection Method / VolumeCollection TimeReceived TimeBloodVenous blood specimen / Unknown Venipuncture / Nxtwwkx5206/17/2025 4:31 AM EST06/17/2025 4:56 AM EST Narrative Authorizing ProviderResult TypeResult StatusChris Andre [facility] BLOOD ORDERABLES Final ResultPerforming OrganizationAddressCity/State/ZIP CodePhone Number [facility]) [address] [place] [phone] * Lactic acid with 4 hour reflex (06/15/2025 7:37 PM EST)ComponentValueRef Range Test MethodAnalysis TimePerformed AtPathologist SignatureLactate0.80.5 - 2.2 mmol/L108/15/2024 8:09 PM [facility])Specimen (Source) Anatomical Location / LateralityCollection Method / VolumeCollection Time Received TimeBloodVenous blood specimen / UnknownVenipuncture / Unknown 06/15/2025 7:37 PM EST06/15/2025 7:44 PM EST Narrative Authorizing ProviderResult TypeResult StatusDamaris Gee PA-CLAB BLOOD ORDERABLESFinal ResultPerforming OrganizationAddressCity/State/ZIP CodePhone Number [facility]) [address] [place] [phone] * Blood culture (06/15/2025 7:37 PM EST) Only the most recent of2 resultswithin the time period is included. ComponentValueRef RangeTest MethodAnalysis TimePerformed AtPathologist Signature Blood CultureNo growth at 5 days JOSE 06/20/2025 8:01 PM [facility])Specimen (Source)Anatomical Location / LateralityCollection Method / VolumeCollection TimeReceived TimeBlood Venous blood specimen / UnknownVenipuncture / Rzzqgim0406/15/2025 7:37 PM EST 06/15/2025 7:44 PM EST Narrative Authorizing ProviderResult TypeResult StatusDamaris CIFUENTES MICROBIOLOGY - GENERAL ORDERABLESFinal ResultPerforming OrganizationAddressCity/State/ZIP CodePhone Number [facility] ([facility]) [address] [place] [address] * (ABNORMAL) Wound culture (06/15/2025 5:59 PM EST)ComponentValueRef RangeTest MethodAnalysis TimePerformed AtPathologist SignatureWound CultureLight Growth Enterobacter cloacae complex(A) JOSE 06/17/2025 10:36 AM [facility] ([facility]Comment:Gram Stain ResultNo polymorphonuclear leukocytes seen06/17/2025 10:36 AM [facility] ([facility]Gram Stain ResultModerate Gram negative qzhvjkp1406/17/2025 10:36 AM EST [facility] ([facility]Specimen (Source)Anatomical Location / Laterality Collection Method / VolumeCollection TimeReceived TimeSwab (Leg)06/15/2025 5:59 PM EST06/15/2025 7:44 PM EST Narrative [facility] ([place]) - 06/17/2025 10:36 AM EST With light [...] - GENERAL ORDERABLESFinal ResultPerforming OrganizationAddressCity/State/ZIP CodePhone Number [facility] ([place]) [address] [place] [address] * [facility] Lower Extremity Arterial Duplex Bypass Graft [...] RangeTest MethodAnalysis TimePerformed AtPathologist SignatureActivated Clotting Time VJX550(H)82 - 152 sec06/10/2025 12:10 AM [facility]TT[facility] ([place])Specimen (Source)Anatomical Location / LateralityCollection Method / VolumeCollection TimeReceived TimeBloodVenous blood specimen / Unknown 06/07/2025 5:44 PM EDT1 12:10 AM EDT Narrative Authorizing ProviderResult TypeResult Barron CEE POINT OF CARE TEST DOCKED DEVICE UNSOLICITED RESULTSFinal ResultPerforming OrganizationAddress City/State/ZIP CodePhone Number [facility] ([place]) [address] [place] [address] * Histology - tissue exam (06/07/2025 5:44 PM EDT)ComponentValueRef RangeTest MethodAnalysis TimePerformed AtPathologist SignatureCase ReportSurgical Pathology ?Case: [id number] ? Authorizing Provider: ??Chris Andre MD ?Collected: ? 06/07/2025 1744 ? Ordering Location: ? [facility] Main Operating Room ?? Received: ?06/08/2025 0806 ? Pathologist: ? Pop Salinas MD ? Specimen: ?Groin, Right ??Common femoral artery , Profunda Artery Plaque and others ? 06/11/2025 8:24 AM [facility])Final DiagnosisA. Right common femoral artery and profunda artery plaque, endarterectomy: - Calcified atherosclerotic plaque with osteoid metaplasia.06/11/2025 8:24 AM [facility]) at 0824 EDTClinical InformationPost-Op Diagnoses M79.604, M79.605 - Lower extremity pain, bilateral [ICD-10-CM] I73.9 - Severe claudication [ICD-10-CM] Z01.818 - Encounter for pre-operative examination [ICD-10-CM] 06/11/2025 8:24 AM [facility] ([facility]Gross DescriptionA. Groin. Received in formalin labeled You Garcia, Groin, Tissue, Right Common femoral artery, Profunda Artery Plaque and others, 5 wells-white, soft to partially calcified fragments of soft tissue measuring 3.7 x 2.4 x 1.3 cm in aggregate. One of the fragments is tubular, measuring 2.2 cm in length and up to 0.9 cm in diameter with 40-50% luminal narrowing. Registered Client Associate sections have been submitted in one cassette following decalcification. The remainder of the specimen is contained within its formalin container. Rom Iglesias, PGY-210/ 8:[address] [facility] ([facility]Microscopic DescriptionMicroscopic examination performed.06/11/2025 8:24 AM [facility] ([facility]Specimen (Source)Anatomical Location / LateralityCollection Method / VolumeCollection TimeReceived TimeTissue (Groin)06/07/2025 5:44 PM EDT 06/08/2025 8:06 AM EDTComment:Pre-op diagnosis: Lower extremity pain, bilateral [M79.604, M79.605] Severe claudication [I73.9] Encounter for pre-operative examination [Z01.818] Narrative Authorizing ProviderResult TypeResult StatusMunier Jes CEE PATHOLOGY ORDERABLESFinal ResultPerforming OrganizationAddressCity/State/ZIP CodePhone Number [facility] ([facility] [address] [place] [address] * (ABNORMAL) Arterial Blood Gas Complete (06/07/2025 5:43 PM EDT)ComponentValue Ref RangeTest MethodAnalysis TimePerformed AtPathologist SignaturepH, Arterial 7.417.35 - 7.451 5:43 PM EDTACOMA[facility] RESPIRATORY THERAPYpCO2, Edsudjja41 35 - 45 mmHg06/07/2025 5:43 PM EDTACOMA-[facility]CIT[facility] RESPIRATORY THERAPYpO2, Lxsesmkd51(L)83 - 108 mmHg06/07/2025 5:43 PM EDTACOMA-[facility]CIT[facility] RESPIRATORY THERAPYHCO3, Npjsoama09.5 21.0 - 28.0 mmol/L1 5:43 PM EDTACOMA-[facility]CIT[facility] RESP[facility]ORY THERAPYO2 Sat, Sywgiuxj27.594.0 - 100.0 %06/07/2025 5:43 PM EDTACOMA-[facility]CIT[facility] RESPIRATORY THERAPYBase Excess, Arterial-0.9-2.0 - 3.0 mmol/L1 5:43 PM [facility] RESPIRATORY THERAPYCalcium Ionized, Arterial1.49(H)1.13 - 1.32 mmol/L1 5:43 PM [facility] RESPIRATORY THERAPYSodium, Yoezzgya990293 - 146 mmol/L1 5:43 PM [facility] RESPIRATORY THERAPYPotassium, Arterial4.43.4 - 5.2 mmol/L1 5:43 PM [facility] RESPIRATORY THERAPYChloride, Plpywcbw119(H)98 - 107 mmol/L 06/07/2025 5:43 PM [facility] RESPIRATORY THERAPYGlucose, Fbrriwwd280(H)65 - 95 mg/dL06/07/2025 5:43 PM [facility] RESPIRATORY THERAPYLactate, Arterial1.100.36 - 1.39 mmol/L1 5:43 PM [facility] RESPIRATORY THERAPYHematocrit, Arterial 31(L)37 - 50 %06/07/2025 5:43 PM [facility] RESPIRATORY THERAPYHemoglobin, Ysvwzzfa51.4g/dL06/07/2025 5:43 PM [facility] RESPIRATORY THERAPYOxyhemoglobin, Lshleuxa78.694.0 - 97.0 %06/07/2025 5:43 PM [facility] RESPIRATORY THERAPY Methemoglobin, Arterial0.80.0 - 1.5 %06/07/2025 5:43 PM [facility] RESPIRATORY THERAPYCarboxyhemoglobin, Arterial2.1%06/07/2025 5:43 PM [facility] RESPIRATORY THERAPYDeoxyhemoglobin, Arterial2.4%06/07/2025 5:43 PM [facility] RESPIRATORY NVNOXLLTavddochoxy46.0??06/07/2025 5:43 PM [facility] RESPIRATORY THERAPYPF Ratio06/07/2025 5:43 PM [facility] RESPIRATORY THERAPYComment:C^Incalculable A-zLn82806/07/2025 5:43 PM [facility] RESPIRATORY THERAPYComment:C^Incalculable paO2/tHT67106/07/2025 5:43 PM [facility] RESPIRATORY THERAPYComment:C^Incalculable Specimen (Source)Anatomical Location / LateralityCollection Method / Volume Collection TimeReceived TimeBloodArterial blood specimen / Tlmzyoe2606/07/2025 5:43 PM EDT1 5:43 PM EDT Narrative Authorizing ProviderResult TypeResult StatusChris CEE BLOOD ORDERABLES Final ResultPerforming OrganizationAddressCity/State/ZIP CodePhone Number [facility] RESPIRATORY THERAPY [address] [place] [address], * [place] AN ELECTIVE ENDOTRACHEAL AIRWAY (06/07/2025 3:09 PM EDT) Narrative Judith Malloy MD - 06/07/2025 3:09 PM EDT Judith Malloy MD 06/07/2025 3:49 PM Airway Date/Time: 06/07/2025 3:09 PM Reason: elective Airway not difficult General Information and Staff Patient location during procedure: OR Anesthesiologist: Judith Malloy MD Resident/RETAIL AREA MANAGER/CAA: Young Carcamo MD Performed: resident/RETAIL AREA MANAGER/CAA Patient Condition Indications for airway management: anesthesia [...] approaches attempted: 0 Authorizing ProviderResult TypeResult StatusJudith CARDOZATHESISarah ORDERABLESFinal Result * ANESTHESIA ARTERIAL LINE PLACEMENT [...] Skin prep, Sterile drape, VSS. Staffing Performed: resident/RETAIL AREA MANAGER/CAA Anesthesiologist: Judith Malloy MD Resident/RETAIL AREA MANAGER: Young Carcamo MD Performed by: Young Carcamo MD Authorized by: Judith Malloy MD ?? Authorizing ProviderResult TypeResult StatusRavindersarah Malloy MDANESTHESIA ORDERABLESEdited Result - Final * (ABNORMAL) Urinalysis with microscopic (05/26/2025 2:54 PM EDT)ComponentValue Ref RangeTest MethodAnalysis TimePerformed AtPathologist SignatureColor, Urine Light-YellowColorless, Yellow, Light-Gawzfa8705/26/2025 4:[address] [facility] ([facility]Clarity, VhiwlEvjomHtgwj29/15/2025 4:[address] [facility] ([facility]Specific [place], Urine1.004(L)1.010 - 1.3718505/26/2025 4:[address] [facility] ([facility]pH, Urine5.55.0 - 8.0 pH05/26/2025 4:[address] [facility] ([facility]Leukocytes, GhjmdDrkwwncoYydmyzpo39/15/2025 4:25 PM EDT [facility] ([facility]Nitrite, MzqfvBaljbjqdBuqsteyq78/15/2025 4:25 PM EDT [facility] ([facility]Protein, UrineNegativeNegative mg/dL05/26/2025 4:[address] [facility] ([facility]Glucose, UrineNormalNormal mg/dL05/26/2025 4:[address] [facility] ([facility]Bilirubin, UrineNegativeNegative 05/26/2025 4:[address] [facility] ([facility]Ketones, UrineNegativeNegative mg/dL05/26/2025 4:[address] [facility] ([facility]Urobilinogen, Urine NormalNormal mg/dL05/26/2025 4:[address] [facility] ([facility]Blood, Urine KvyxozsoQkrzddjk56/15/2025 4:[address] [facility] ([facility]RBC, UrineNone SeenNone Seen, 0-2 /HPF05/26/2025 4:[address] [facility] ([facility]WBC, UrineNone SeenNone Seen, 0-2 /HPF05/26/2025 4:[address] [facility] ([facility]Squamous Epithelial, UrineOccasionalNone Seen, Occasional, Few /LPF 05/26/2025 4:[address] [facility] ([facility]Specimen (Source)Anatomical Location / LateralityCollection Method / VolumeCollection TimeReceived Time UrineUrine specimen obtained by clean catch procedure / UnknownNon-blood Collection / Bwdohrs8705/26/2025 2:54 PM EDT1 3:48 PM EDT Narrative Authorizing ProviderResult TypeResult StatusBatsheva CEE URINE ORDERABLES Final ResultPerforming OrganizationAddressCity/State/ZIP CodePhone Number [facility] ([facility] [address] [place] [address] * (ABNORMAL) Microalbumin, urine, random (05/26/2025 2:54 PM EDT)ComponentValue Ref RangeTest MethodAnalysis TimePerformed AtPathologist SignatureMicroalb, Ur <1mg/dL05/26/2025 4:[address] [facility] ([facility]Microalb/Creat Ratio 05/26/2025 4:[address] [facility] ([facility]Comment:Unable to calculate Creatinine, Ur24.0(L)26 - 299 mg/dL05/26/2025 4:[address] [facility] ([facility]Specimen (Source)Anatomical Location / LateralityCollection Method / VolumeCollection TimeReceived TimeUrineUrine specimen obtained by clean catch procedure / UnknownNon-blood Collection / Nvmenio2205/26/2025 2:54 PM EDT 05/26/2025 3:48 PM EDT Narrative Authorizing ProviderResult TypeResult StatusBatsheva CEE URINE ORDERABLES Final ResultPerforming OrganizationAddressCity/State/ZIP CodePhone Number [facility]) [address] [place] [address] * (ABNORMAL) Creatinine, urine, random (05/26/2025 2:54 PM EDT)ComponentValueRef RangeTest MethodAnalysis TimePerformed AtPathologist SignatureCreatinine, Ur 24.0(L)26 - 299 mg/dL05/26/2025 4:34 PM [facility]TT[facility] ([facility]Specimen (Source)Anatomical Location / LateralityCollection Method / VolumeCollection TimeReceived TimeUrineUrine specimen obtained by clean catch procedure / UnknownNon-blood Collection / Ahfeodl6205/26/2025 2:54 PM EDT1 3:48 PM EDT Narrative Authorizing ProviderResult TypeResult StatusBatsheva CEE URINE ORDERABLES Final ResultPerforming OrganizationAddressCity/State/ZIP CodePhone Number [facility]) [address] [place] [address] * Vitamin D 25 hydroxy (05/26/2025 2:54 PM EDT)ComponentValueRef RangeTest MethodAnalysis TimePerformed AtPathologist SignatureVit D, 25-Yjtilom56.030.0 - 80.0 ng/mL05/26/2025 4:[address] [facility] ([facility]Comment:>80.0 Toxicity possibleSpecimen (Source)Anatomical Location / LateralityCollection Method / VolumeCollection TimeReceived TimeBloodVenous blood specimen / UnknownVenipuncture / Zuzaysc9505/26/2025 2:54 PM EDT1 3:52 PM EDT Narrative Authorizing ProviderResult TypeResult StatusBatsheva CEE BLOOD ORDERABLES Final ResultPerforming OrganizationAddressCity/State/ZIP CodePhone Number [facility]) [address] [facility] [place] [phone] * PTH, intact (05/26/2025 2:54 PM EDT)ComponentValueRef RangeTest MethodAnalysis TimePerformed AtPathologist NcgsbvuqeBDA6472 - 88 pg/mL05/26/2025 7:13 PM EDT [facility] ([facility]Specimen (Source)Anatomical Location / Laterality Collection Method / VolumeCollection TimeReceived TimeBloodVenous blood specimen / UnknownVenipuncture / Mfuonle6905/26/2025 2:54 PM EDT1 3:52 PM EDT Narrative Authorizing ProviderResult TypeResult StatusZubia Tang CEE BLOOD ORDERABLES Final ResultPerforming OrganizationAddressCity/State/ZIP CodePhone Number [facility] ([facility] [address] [place] [address] * MRSA/MSSA DNA Nasal (05/24/2025 2:48 PM EDT)ComponentValueRef RangeTest Method Analysis TimePerformed AtPathologist SignatureMSSA DNANegativeNegative 05/25/2025 1:50 [facility]MRSA DNANegativeNegative 05/25/2025 1:[address] [facility] ([facility]Specimen (Source)Anatomical Location / LateralityCollection Method / VolumeCollection TimeReceived Time SwabNasal structure / UnknownNon-blood Collection / Arweevw0905/24/2025 2:48 PM EDT1 3:24 PM EDT Narrative [facility] ([facility] - 05/25/2025 1:50 PM EDT Testing methodology [...] GENERAL ORDERABLESFinal ResultPerforming OrganizationAddressCity/State/ZIP Code Phone Number [facility] ([facility] [address] [place], [place] [id number] * CORONARY ANGIOGRAPHY, CORONARY BYPASS GRAFT STUDY (05/11/2025 12:47 PM EDT) Anatomical RegionLateralityModalityOtherSpecimen (Source)Anatomical Location / LateralityCollection Method / VolumeCollection TimeReceived Time Narrative 05/11/2025 1:11 PM EDT Cardiovascular Laboratory Report FINAL IMPRESSIONS: ?? Severe, three-vessel [place] coronary artery disease There are 2 out [...] micropuncture kit was upsized to a 6 [place] 11 cm sheath. Bilateral selective coronary angiography [...] have been documented. Authorizing ProviderResult TypeResult StatusEhab [facility] CARDI[facility] CATH PROCEDURESFinal Result * Electrocardiogram, 12-lead (05/11/2025 8:08 AM EDT)ComponentValueRef RangeTest MethodAnalysis TimePerformed AtPathologist SignatureVentricular Yufq26MALWU MUSEAtrial Yvap07PLDCF MUSEPR Ccdislnp759pzWA MUSEQRS XBKGFMQQ290wyMO MUSEQT Qhymfeic447zzGG MUSEQTC CALCULATION(BAZETT)466msGE MUSEP Buoo29unqxvvgVX MUSE J-Krip-76hlqrllzLR MUSET Wave Npox22rxdavneMJ MUSESpecimen (Source)Anatomical Location / LateralityCollection Method / [...] 11:35:47 PM Authorizing ProviderResult TypeResult StatusEhab Sharee LEMONECG ORDERABLESFinal ResultPerforming OrganizationAddressCity/State/ZIP CodePhone Number GE BRYNN from Last 3 Months Insurance Advance Directives * Full Code (Latest Code Status on File) Date ActivatedDate KiccfxeppfxRcxzscot69/18/2025 4:23 AM07/01/2025 8:53 PM * Full Code Date ActivatedDate TzqesnvpwiiGhnqwqpb39/4/2025 9:45 PM06/19/2025 9:53 PM * Full Code Date ActivatedDate NbeejqwezxcAgxjtnxe65/27/2025 5:10 PM10 9:30 PM * Full Code Date ActivatedDate InactivatedComments05/11/2025 12:48 PM05/11/2025 8:03 PM Care Teams Team MemberRelationshipSpecialtyStart DateEnd Date Susan Watson MD [address] [facility] [place] [address] PCP - GeneralNurse Practitioner10/13/24
--- OUTSIDE RECORDS SUMMARY | 2025-08-04 12:06 | XMS_ITS | Clinical Summary ---
Author Organization [facility] Healthcare Address [address] [place] [address] Care Team Providers Care Bus Cleaner Name Role Phone Jose Beckford MD Primary Care Provider [phone] Cherelle Coronado NP Unavailable [phone] Allergies No known active allergies Medications MedicationSigDispense QuantityRefillsLast FilledStart DateEnd DateStatus albuterol HFA 90 mcg/act inhaler Inhale 2 puffs every 4 (four) hours if needed for wheezingActive nitroglycerin (Nitrostat) 0.4 MG SL tablet Indications:Coronary artery disease involving red devil coronary artery of red devil heart without angina pectorisPlace 1 tablet (0.4 [...] morning. Take with meals. 90 capsule tive Vyiqeavlsca-Rjhnfgeiw-Yfeljd (Trelegy Ellipta) 100-62.5-25 MCG/ACT aerosol powder Indications:Chronic obstructive pulmonary disease, unspecified COPD type (HCC) Inhale 1 puff Daily Rinse mouth after use. Inhale 1 puff Daily 180 each tive isosorbide mononitrate ER (Imdur) 60 MG 24 hr tablet Indications:Primary hypertension,Coronary artery disease involving red devil coronary artery of red devil heart without angina pectorisTake 1 tablet (60 mg) by mouth Daily Do not crush or chew. 90 tablet 5Active lisinopril 10 MG tablet Indications:Primary hypertensionTake 1 tablet (10 mg) by mouth Daily 90 tablet tive metoprolol tartrate (Lopressor) 50 MG tablet Indications:Primary hypertension,Coronary artery disease involving red devil coronary artery of red devil heart without angina pectorisTake 1 tablet (50 [...] Active Problems ProblemNoted DateDiagnosed DateChronic diastolic heart tcnlker0403/01/2025 Assessment & Plan (03/01/2025 7:08 AM EDT): Noted on ECHO: 02/18/2525 grade 3 Current meds: plavix, norvasc, imdur, raulito, b kelsy, Pulmonary rmvrskztrvoy46/21/2025 Assessment & Plan (03/01/2025 7:09 AM EDT): Noted on ECHO from 02/18/25 pressure 46 Cervical dkeesrnfgjr74/10/2025 Assessment & Plan (03/01/2025 7:10 AM EDT): [...] Seems more muscle relatated Frequent falls06/17/2024Functional gait kytemyonsbl70/06/2024 Assessment & Plan (06/22/2024 11:34 AM EST): [...] send referral today. Chronic obstructive pulmonary disease, nlfyadvhclh84/31/2024 Assessment & Plan (03/01/2025 3:16 PM EDT): [...] recent exacerbations. Uses albuterol as needed. Primary mcqyiraknlya15/31/2024 Assessment & Plan (03/01/2025 7:08 AM EDT): [...] greater tuberosity of left humerus with routine hkahoaa3409/19/2023oronary artery disease involving red devil coronary artery of red devil heart without angina crvvngri26/08/2024 Assessment & Plan (03/01/2025 7:08 AM EDT): Established with [facility] Cardiology Current meds: asa, amlodipine, statin, plavix, imdur, raulito, b kelsy, and prn nitro Assessment & Plan (11/19/2024 7:00 AM EDT): Established with [facility] Cardiology Current meds: asa, amlodipine, statin, plavix, imdur, raulito, b kelsy, and prn nitro Assessment & Plan (10/08/2024 5:49 PM EST): Current meds: plavix, amlodipine, statin, b kelsy, nitroglycerin prn No acute symptoms, cont with [facility] Cardiology Assessment & Plan (03/11/2024 2:27 PM EDT): S/p CABG. On ASA, BB, Imdur, plavix, statin Denies CP, SOB, palpitations. Following [facility] cardiology. Assessment & Plan (09/19/2023 5:32 PM EST): S/p CABG. On ASA, BB, Imdur, plavix, statin Denies CP, SOB, palpitations. Following [facility] cardiology. Mixed qaosatgeqlxyfe47/08/2024 Assessment & Plan (10/08/2024 7:11 AM EST): [...] Avoid NSAIDS. C/w current regimen. 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 pysch TELLER MANAGER, I have given daughter present today [...] and neuropsych testing Atherosclerosis of arteries of ncsvdxajbae43/14/2013 Assessment & Plan (11/19/2024 7:00 AM EDT): Asa, plavix, statin Intermittent vijkoulwvcms27/14/7188Tzsdgdbz35/07/2012 Resolved Problems ProblemNoted DateDiagnosed DateResolved DateRecurrent major depression in partial mhootkuzk23/4Recurrent major depressive disorder, in full ztotqadur13 Assessment & Plan (10/08/2024 5:51 PM EST): [...] Seasonal, Quadrivalent, Preservative Free05/23/2021,08/03/2020Pfizer Purple Cap SARS-CoV-2 Yeczpjrluem45/26/2021,11/08/2020,1Pneumococcal Conjugate PCV 13 08/27/2019Pneumococcal Polysaccharide WERU806510/04/2019 Family History Medical HistoryRelationNameCommentsDiabetesMotherHeart diseaseMotherHypertension MotherDiabetesSisterRelationNameStatusCommentsFatherDeceasedMotherDeceasedSister x2 Social History Tobacco UseTypesPacks/DayYears UsedDateSmoking Tobacco: FormerCigarettesPassive Smoke Exposure: NeverSmokeless Tobacco: Never Tobacco Cessation:Counseling Given: Not Answered Alcohol UseStandard Drinks/WeekCommentsNever0 (1 standard drink = 0.6 oz pure alcohol)caffeine: 1-2 cups per giiB9084 Health LiteracyAnswerDate RecordedHow often do you need [...] relatives?Once a week02/28/2025How often do you attend spiritism or holiness services?Never02/28/2025Do you belong to any clubs or organizations such as spiritism groups, unions, [employer] or athletic groups, or school groups?No 02/28/2025How often do you attend meetings of the clubs or organizations you belong to?Never02/28/2025re you , , , , never , or living with a partner?Chwehyncu40/20/2025UDIT-CAnswerDate Recorded Q1: How often do you have [...] heating?Not very hard02/28/2025PHQ-2AnswerDate RecordedPatient Health Questionnaire-2 Score0 03/11/2024[facility] [place] [facility] - Occupational Stress QuestionnaireAnswerDate RecordedDo you feel stress - tense, restless, nervous, or anxious, or unable to sleep at night because yourmind is troubled all the time - these days?To some ecsvom2902/28/2025Exercise Vital SignAnswerDate Recorded On average, how many [...] steady place to sleep or slept in formerly [facility] (including now)?No07/22/2023Housing Stability Vital SignAnswerDate RecordedIn the last 12 months, was there a time when you were not able to pay the mortgage or rent on time?No02/28/2025In the past 12 months, how many times have you moved where you were living? At any time in the past 12 months, were you homeless or living in a chcf (including now)?02/28/2025Sex and Gender InformationValueDate RecordedSex Assigned at BirthNot on fileLegal FacEojd6310/24/2022 10:05 PM EDTGender Identity Not on fileSexual OrientationNot on file Last Filed Vital Signs Vital SignReadingTime TakenCommentsBlood Rvmkatwo368/6407 1:45 PM EDT Tnava732203/01/2025 1:45 PM RQOJelfoypvvlx76.3 ??C (97.3 ??F)03/01/2025 1:45 PM EDTRespiratory Cszj704203/01/2025 1:45 PM EDTOxygen Nmpwousxlg13%03/01/2025 1:45 PM EDTInhaled Oxygen Concentration--Cyygeo87.6 kg (166 lb 9.6 oz)03/01/2025 1:45 PM ZSJTishve321.7 cm (5' 8 )06/17/2024 1:13 PM ESTBody Mass Index25.33108/17/2023 1:13 PM EST Plan of Treatment Not on file Insurance Care Teams Team MemberRelationshipSpecialtyStart DateEnd Date Jose Beckford MD PCP - GeneralFamily Qtgyjwkx78/29/24 Cherelle Coronado NP Nurse PractitionerFamily Psqwzqjp86/29/24
--- OUTSIDE RECORDS SUMMARY | 2025-08-04 12:06 | XMS_ITS | Patient Health Record ---
Author Organization [facility] Address [address] [place] [address] Support Name Relationship Address Phone LISETH GOLDSTEIN Emergency Contact [address], [place] [id number] KEL CASTILLO Guarantor Unknown [phone] Allergies No Known Allergies Reason For Referral No Information Social History Tobacco Use: Social History Observation Description Date Details (start date - stop date) Never Smoker NA - NA Smoking History Question Answer Notes Smoking Status NonSmoker Problems Problem Type SNOMED Code ICD Code Onset Dates Problem Status W/U Status Risk Notes Problem Closed fracture prox imal humerus, greater tuberosity (671904684) Closed nondisplaced fracture of greater tuberosity of left humerus, initial encounter (S42.255A) ActiveconfirmedProblemClosed fracture of greater tuberosity of proximal left humerus (disorder) (38458313267504732)Closed nondisplaced fracture of greater tuberosity of left humerus with routine healing (S42.255D)ActiveconfirmedProblem Other nondisplaced fracture of upper end of left humerus, subsequent encounter for fracture with routine healing (S42.295D)ActiveconfirmedProblemTraumatic rupture of rotator cuff (disorder) (784789472)Traumatic complete tear of left rotator cuff, initial encounter (S46.012A)Activeconfirmed Plan Of Treatment Pending Test Test Name Order Date MRI : Shoulder W/O Contrast Left - 87638 08/26/2023 Insurance Providers Payer Name Payer Address Payer Phone Subscriber Number Group Number Insured Name Patient Relationship to Insured Coverage Start Date Coverage End Date [facility] [address] [place] [address] [id number] Ye CASTILLOf - patient is the insuredAcmc Healthcare [place] [id number], RICARDAmy - patient is the insured Medical (General) History Medical History History ICD Code Asthma/COPD Lung DiseaseLung cancerHeart problems:High Blood PressureDepressionMental Illness:AnxietyKidney troubleSleep apneaCPAP Machine: YesSurgical History Surgery Date(Month/Year) lung-right lower lobe 1996 Triple bypass 2006
--- OUTSIDE RECORDS SUMMARY | 2025-08-04 12:06 | XMS_ITS | Clinical Summary ---
Author Organization [facility] Address [address] [place] [address] Phone Care Team Providers Care Nailing Machine Operator Automatic Name Role Phone Unavailable Primary Care Provider Unavailabl e Social History Tobacco UseTypesPacks/DayYears UsedDateSmoking Tobacco: Never AssessedSex and Gender InformationValueDate RecordedSex Assigned at BirthNot on fileLegal Sex Male07/07/2022 9:17 AM ESTGender IdentityNot on fileSexual OrientationNot on file Plan of Treatment Not on file
[2025-08-04 12:33] LABS: Anion Gap 8.3; Blood Urea Nitrogen 44.0 mg/dL (7.0-18.0); Calcium 9.0 mg/dL (8.5-10.1); Carbon Dioxide 32.4 mmol/L (21.0-32.0); Chloride 104 mmol/L (98-107); Estimated GFR (African America 26 (>=60 mL/min/1.73m^2); Estimated GFR (Non-African Ame 21 (>=60 mL/min/1.73m^2); Glucose 98 mg/dL (74-106); Potassium 4.7 mmol/L (3.5-5.1); Sodium 140 mmol/L (136-145)
== END 2025-08-04 12:01 | disposition home or self-care (01) ==
LOC: LAB 12:02
PROVIDERS: PCP Nurse Practitioner; Visit Provider Nurse Practitioner
DX: N18.32 Chronic kidney disease, stage 3b (principal)
CPT/HCPCS: 36415; 80048

== ENCOUNTER 2025-08-04 20:24 | Inpatient (IN) | payer MEDICARE, SELFPAY ==
--- OUTSIDE RECORDS SUMMARY | 2025-07-22 | XMS_ITS | Encounter Summary ---
Author Organization [facility] Address [address] [address] Care Team Providers Care Assembly Line Supervisor Name Role Phone Susan Watson MD Primary Care Provider [phone] Encounter Details DateTypeDepartmentCare Team (Latest Contact Info)Sgrhpbpwbgz57/11/2025 - 07/22/2025 12:04 AM ESTHospital Encounter [facility] Radiology External Films [address] [place] [phone] Discharge Disposition: Home or Self Care () Social History Tobacco UseTypesPacks/DayYears UsedDateSmoking Tobacco: FormerCigarettes2.525 1968 - 1993Smokeless Tobacco: CurrentChewAlcohol UseStandard Drinks/WeekComments Not Currently0 (1 standard drink = 0.6 oz pure alcohol)PHQ-2AnswerDate Recorded Patient Health Questionnaire-2 Lamba42608/14/2024Humiliation, Afraid, Rape, and Kick questionnaireAnswerDate RecordedWithin the [...] week06/15/2025How often do you attend hoahaoism or uatsdin services?Never06/15/2025Do you belong to any clubs or organizations such as hoahaoism groups, unions, fraternal or athletic groups, or school groups?No06/15/2025How often do you attend meetings of the clubs or organizations you belong to?Never06/15/2025re you , , , , never , or living with a partner?Edlrxpcct71/04/2025UDIT-C AnswerDate RecordedQ1: How often do you have [...] medical care, and heating?Not hard at all06/29/2025 [facility] of Occupational Health - Occupational Stress Questionnaire AnswerDate RecordedDo you feel stress - tense, restless, nervous, or anxious, or unable to sleep at night because yourmind is troubled all the time - these days? Only a oqemjd3606/15/2025HC UtilitiesAnswerDate RecordedIn the past 12 months has the [employer], gas, oil, or water [employer] threatened to shut off services in your [...] Assigned at BirthMale 04/08/2025 7:15 AM EDTLegal VafVapw3402/07/2022 10:15 PM EDTGender IdentityMale 04/08/2025 7:15 AM EDTSexual OrientationHeterosexual or Yzfsbmhm61/28/2025 7:15 AM EDTdocumented as of this encounter Medications at Time of Discharge MedicationSigDispense QuantityRefillsLast FilledStart DateEnd Date acetaminophen (Tylenol Extra Strength) 500 mg tablet Indications:Lower extremity pain, bilateralTake 2 tablets (1,000 mg) by mouth every 6 (six) hours if needed for moderate pain (4-7 pain score). 30 tablet albuterol 90 mcg/actuation inhaler INHALE 1 PUFF BY MOUTH EVERY 4 HOURS ALBFVJ9812/02/2021 aspirin 81 mg EC tablet Take 1 [...] mouth in the morning and at bedtime. azweuewvygl-kupevdudl-nbjkmbis (Trelegy Ellipta) 100-62.5-25 mcg blister with device Inhale 1 puff in the morning.02/18/2024 isosorbide mononitrate ER (Imdur) 60 mg 24 hr tablet Take 60 mg by mouth in the morning.10/22/2019 metoprolol tartrate (Lopressor) 50 mg tablet Take 50 mg by mouth two times daily. nitroglycerin (Nitrostat) 0.4 mg SL tablet 06/17/2024 OLANZapine (ZyPREXA) 2.5 mg tablet 12/25/2024 OLANZapine (ZyPREXA) 5 mg tablet Take 5 [...] disease, chronic, stage IV (GFR 15-29 ml/min) ([facility]/HCC),HyperkalemiaTake 10 g by mouth 3 (three) times a week. 120 g 07/07/2025 traZODone (Desyrel) 100 mg tablet Take 1 tablet by mouth at bedtime.documented as of this encounter Plan of Treatment DateTypeDepartmentCare Team (Latest Contact Info)Cjbaychdppt09/12/2026 1:30 PM ESTHospital Encounter [facility] Main Operating Room [address] [place] [address] Chris Andre MD [address] [facility] [place] [address] 08/23/2025 1:30 PM EST - 08/23/2025 5:00 PM ESTSurgery [facility] Main Operating Room [address] [facility] [place] [address] Chris Andre MD [address] [place] [address] ENDARTERECTOMY, FEMORAL WITH POSSIBLE FEM TO POP XGIHJZ5009/21/2025 11:00 AM EST Follow-Up [facility] [address] [facility] [place] [address] Batsheva Beckwith MD [address] [facility] [place] [address] 10/21/2025 1:00 PM EDTAppointment [facility] CT Imaging [address] [place] [address] NamePriorityAssociated DiagnosesDate/TimeENDARTERECTOMY, FEMORAL Peripheral arterial occlusive disease Encounter for pre-operative examination 08/23/2025 1:30 PM ESTdocumented as of this encounter Goals GoalPatient Goal TypeAssociated ProblemsRecent ProgressPatient-Stated?Author Blood Pressure < 140/90 Blood Rnhdjwms869/68(07/22/2025 2:32 PM EST)Cy Child, RNdocumented as of this encounter Procedures Procedure NamePriorityDate/TimeAssociated DiagnosisCommentsCT TRANSFER OF OUTSIDE KTNJQUalbyfz88/11/2025 12:00 AM EST documented in this encounter Results * CT transfer of outside films (07/22/2025 12:00 AM EST)Specimen (Source) Anatomical Location / LateralityCollection Method / VolumeCollection Time Received Time Narrative IMAGING - 07/22/2025 2:55 PM EST This order has been auto-finalized and does not contain a result. Authorizing ProviderResult TypeResult StatusZaid Vinod LEMONIMG CT PROCEDURESFinal ResultPerforming OrganizationAddressCity/State/ZIP CodePhone Number IMAGING documented in this encounter Visit Diagnoses Not on filedocumented in this encounter Care Teams Team MemberRelationshipSpecialtyStart DateEnd Date Susan Watson MD [address] [place] [address] PCP - GeneralNurse Practitioner10/13/24documented as of this encounter
--- OUTSIDE RECORDS SUMMARY | 2025-07-22 00:05 | XMS_ITS | Encounter Summary ---
Author Organization [facility] Address [address] [place] [address] Care Team Providers Care Electrical Assembly Supervisor Name Role Phone Susan Watson MD Primary Care Provider [phone] Encounter Details DateTypeDepartmentCare Team (Latest Contact Info)Yzbwbvtdgav34/11/2025 12:05 AM EST - 07/22/2025 11:59 PM ESTHospital Encounter [facility] Radiology External Films [address] [place] [phone] Discharge Disposition: Home or Self Care () Social History Tobacco UseTypesPacks/DayYears UsedDateSmoking Tobacco: FormerCigarettes2.525 1968 - 1993Smokeless Tobacco: CurrentChewAlcohol UseStandard Drinks/WeekComments Not Currently0 (1 standard drink = 0.6 oz pure alcohol)PHQ-2AnswerDate Recorded Patient Health Questionnaire-2 Psgab23808/14/2024Humiliation, Afraid, Rape, and Kick questionnaireAnswerDate RecordedWithin the [...] times a week06/15/2025How often do you attend congregation or rastafarian services?Never06/15/2025Do you belong to any clubs or organizations such as congregation groups, unions, fraternal or athletic groups, or school groups?No06/15/2025How often do you attend meetings of the clubs or organizations you belong to?Never06/15/2025re you , , , , never , or living with a partner?Vqbkfsxvd53/04/2025UDIT-C AnswerDate RecordedQ1: How often do you have [...] medical care, and heating?Not hard at all06/29/2025 [facility] of Occupational Health - Occupational Stress Questionnaire AnswerDate RecordedDo you feel stress - tense, restless, nervous, or anxious, or unable to sleep at night because yourmind is troubled all the time - these days? Only a nprtzy0306/15/2025HC UtilitiesAnswerDate RecordedIn the past 12 months has [...] Assigned at BirthMale 04/08/2025 7:15 AM EDTLegal GxcQyov4402/07/2022 10:15 PM EDTGender IdentityMale 04/08/2025 7:15 AM EDTSexual OrientationHeterosexual or Wvxzljkf98/28/2025 7:15 AM EDTdocumented as of this encounter Medications at Time of Discharge MedicationSigDispense QuantityRefillsLast FilledStart DateEnd Date acetaminophen (Tylenol Extra Strength) 500 mg tablet Indications:Lower extremity pain, bilateralTake 2 tablets (1,000 mg) by mouth every 6 (six) hours if needed for moderate pain (4-7 pain score). 30 tablet albuterol 90 mcg/actuation inhaler INHALE 1 PUFF BY MOUTH EVERY 4 HOURS EZXDCV3512/02/2021 aspirin 81 mg EC tablet Take 1 [...] mouth in the morning and at bedtime. vvyyrggrkgs-vvsywejqo-npndziul (Trelegy Ellipta) 100-62.5-25 mcg blister with device [...] disease, chronic, stage IV (GFR 15-29 ml/min) ([facility]),HyperkalemiaTake 10 g by mouth 3 (three) times a week. 120 g 07/07/2025 traZODone (Desyrel) 100 mg tablet Take 1 tablet by mouth at bedtime. amoxicillin-pot clavulanate (Augmentin) 875-125 mg tablet Indications:HemoptysisTake 1 tablet by mouth two times daily for 10 days. 20 tablet documented as of this encounter Plan of Treatment DateTypeDepartmentCare Team (Latest Contact Info)Vmhrpdgillj43/12/2026 1:30 PM ESTHospital Encounter [facility] Main Operating Room [address] [place] [address] Chris Andre MD [address] [place] [address] 08/23/2025 1:30 PM EST - 08/23/2025 5:00 PM ESTSurgery [facility] Main Operating Room [address] [place] [phone] Chris Andre MD [address] [place] [address] ENDARTERECTOMY, FEMORAL WITH POSSIBLE FEM TO POP IZTFPM5509/21/2025 11:00 AM EST Follow-Up [facility] Nephrology [address] [place] [address] Batsheva Beckwith MD [address] [facility] [place] [address] 10/21/2025 1:00 PM EDTAppointment [facility] CT Imaging [address] [place] [address] NamePriorityAssociated DiagnosesDate/TimeENDARTERECTOMY, FEMORAL Peripheral arterial occlusive disease Encounter for pre-operative examination 08/23/2025 1:30 PM ESTdocumented as of this encounter Goals GoalPatient Goal TypeAssociated ProblemsRecent ProgressPatient-Stated?Author Blood Pressure < 140/90 Blood Dlnyxgop451/68(07/22/2025 2:32 PM EST)Cy Child, RNdocumented as of this encounter Procedures Procedure NamePriorityDate/TimeAssociated DiagnosisCommentsXR TRANSFER OF OUTSIDE DHWBLFgtblzx01/11/2025 12:05 AM EST documented in this encounter [...] Date Susan Watson MD [address] [place] [address] PCP - GeneralNurse Practitioner10/13/24documented as of this encounter
--- OUTSIDE RECORDS SUMMARY | 2025-07-22 09:30 | XMS_ITS | Encounter Summary ---
Author Organization [facility] Address [address] [place] [address] Care Team Providers Care Watch Engine Operator Name Role Phone Susan Watson MD Primary Care Provider Reason for Referral * Imaging (Routine) - AuthorizedSpecialtyDiagnoses / ProceduresReferred By ContactReferred To ContactCardiology Diagnoses Post-operative pain Procedures Vascular US lower extremity pseudoaneurysm evaluation duplex right Sarah Tolliver MD [address] [place] [address] Phone: tel: fax: Referral IDStatusReasonStart DateExpiration DateVisits RequestedVisits [id number] Perform Procedure Encounter Details DateTypeDepartmentCare Team (Latest Contact Info)Lxpqcsrpeso39/11/2025 9:30 AM ESTFollow-Up [facility] [place] [address] [place] [address] Sarah Tolliver MD [address] [place] [address] Dyspnea, unspecified type (Primary Dx); [...] oz pure alcohol)PHQ-2AnswerDate Recorded Patient Health Questionnaire-2 Ckrah40208/14/2024Humiliation, Afraid, Rape, and Kick questionnaireAnswerDate RecordedWithin the [...] times a week06/15/2025How often do you attend islam or jewish services?Never06/15/2025Do you belong to any clubs or organizations such as islam groups, unions, fraternal or athletic groups, or school groups?No06/15/2025How often do you attend meetings of the clubs or organizations you belong to?Never06/15/2025re you , , , , never , or living with a partner?Tsbdnpyss95/04/2025UDIT-C AnswerDate RecordedQ1: How often do you have [...] medical care, and heating?Not hard at all06/29/2025 [facility] [place] of Occupational Health - Occupational Stress Questionnaire AnswerDate RecordedDo you feel stress - tense, restless, nervous, or anxious, or unable to sleep at night because yourmind is troubled all the time - these days? Only a ybcwlh1606/15/2025HC UtilitiesAnswerDate RecordedIn the past 12 months has [...] Assigned at BirthMale 04/08/2025 7:15 AM EDTLegal DzaTrkr7302/07/2022 10:15 PM EDTGender IdentityMale 04/08/2025 7:15 AM EDTSexual OrientationHeterosexual or Tnivrpdc46/28/2025 7:15 AM EDTdocumented as of this encounter Last Filed Vital Signs Vital SignReadingTime TakenCommentsBlood Rdzxixgn554/6007/22/2025 9:56 AM EST Ilzrd950907/22/2025 9:56 AM ESTTemperature--Respiratory Rate--Oxygen Jayarkwchh85% 07/22/2025 9:56 AM ESTInhaled Oxygen Concentration--Oegdcv05.9 kg (154 lb) 07/22/2025 9:56 AM PFNFetvgg525.3 cm (5' 9 )07/22/2025 9:56 AM ESTBody Mass Index22.7407/22/2025 9:56 AM ESTdocumented in this encounter Progress Notes * Sarah Tolliver MD - 07/22/2025 9:30 AM EST Images from the original note were not included. [facility] Cardiology Clinic Note Chief Complaint: Patient here for follow up angiogram. He is scheduled for surgery with Dr. Andre next month. Was admitted to [facility] recently for hemoptysis. Denies chest pain [...] morning and at bedtime., Disp: , Rfl: hyfvqhfczqw-flltoassg-iwcriftv (Trelegy Ellipta) 100-62.5-25 mcg blister with device, [...] occluded right coronary artery. 2. Severe 3-vessel [place] coronary artery disease. 3. Patent left internal [...] Laboratory Report FINAL IMPRESSIONS: 1. Severe 3-vessel [place] coronary artery disease. 2. A 2/3 bypass grafts patent; the radial artery graft to the posterior descending artery is occluded. 3. Severe, heavily calcific lesion of the right common femoral artery; this is a new angiographic finding. Conclusion Cardiovascular Laboratory Report 05/11/2025 FINAL IMPRESSIONS: Severe, three-vessel [place] coronary artery disease There are 2 out [...] of Service: 06/07/2025 2:51 PM Status: Signed Street Commissioner: Chris Andre MD (Physician) Related Notes: Original Note by Omer Nathan MD (Resident) filed at 06/08/2025 7:51 AM Right Femoral- Popliteal Bypass with 8mm Propaten Graft above the knee (R), ENDARTERECTOMY, COMMON FEMORAL ARTERY, PROFUNDA , AND (R) Operative Note Date: 06/07/2025 Location: [facility] OR Name: You Garcia, : 1955, Diagnosis Pre-op Diagnosis * Lower extremity pain, bilateral [M79.604, M79.605] * Severe claudication [I73.9] * Encounter for pre-operative examination [Z01.818] Post-op Diagnosis * Lower extremity pain, bilateral [M79.604, M79.605] * Severe claudication [I73.9] * Encounter for pre-operative examination [Z01.818] Procedures Right Femoral- Popliteal Bypass with 8mm Propaten Graft above the knee [address] - AL BYPASS W/VEIN FEMORAL-POPLITEAL ENDARTERECTOMY, COMMON [...] should problems arise Sarah Tolliver MD, MPH, [facility], [facility], [facility] Interventional Cardiology Pager Email: [email or web address] documented in this encounter Plan of Treatment DateTypeDepartmentCare Team (Latest Contact Info)Wlytbimqwxz30/12/2026 1:30 PM ESTHospital Encounter [facility] Main Operating Room [address] [place] [address] Chris Andre MD [address] [place] [address] 08/23/2025 1:30 PM EST - 08/23/2025 5:00 PM ESTSurgery [facility] Main Operating Room [address] [place] [address] Chris Andre MD [address] [place] [address] ENDARTERECTOMY, FEMORAL WITH POSSIBLE FEM TO POP SKRBGH7709/21/2025 11:00 AM EST Follow-Up [facility] Nephrology [address] [place] [address] Batsheva Beckwith MD [address] [facility] [address] [facility] [place] [address] 10/21/2025 1:00 PM EDTAppointment [facility] CT Imaging [address] [place] [address] NameTypePriorityAssociated DiagnosesOrder ScheduleVascular US lower extremity pseudoaneurysm evaluation duplex rightVascular UltrasoundRoutine Post-operative pain Expected: 07/22/2025 (Approximate), Expires: 07/22/2027NamePriorityAssociated DiagnosesDate/TimeENDARTERECTOMY, FEMORAL Peripheral arterial occlusive disease Encounter for pre-operative examination 08/23/2025 1:30 PM ESTdocumented as of this encounter Goals GoalPatient Goal TypeAssociated ProblemsRecent ProgressPatient-Stated?Author Blood Pressure < 140/90 Blood Wmdtuaqg541/68(07/22/2025 2:32 PM EST)Cy Child, JOHANAdocumented as of [...] DateEnd Date Susan Watson MD [address] [place] [place] [address] PCP - GeneralNurse Practitioner10/13/24documented as of this encounter
--- OUTSIDE RECORDS SUMMARY | 2025-07-22 14:30 | XMS_ITS | Encounter Summary ---
Author Organization [facility] Address [address] [place] [address] Care Team Providers Care Technical Support Professional Name Role Phone Susan Watson MD Primary Care Provider [phone] Reason for Referral * Imaging (Routine) - Pending ReviewSpecialtyDiagnoses / ProceduresReferred By ContactReferred To ContactRadiology Diagnoses Hemoptysis Procedures CT chest wo IV contrast Robert Brock MD [address] [place] [address] [place] [address] Phone: tel: fax: Referral IDStatusReasonStart DateExpiration DateVisits RequestedVisits [id number] Reason for Visit * ReasonCommentsCoughing Up Blood Encounter Details DateTypeDepartmentCare Team (Latest Contact Info)Zwtejtxampj55/11/2025 2:30 PM ESTConsult [facility] [[email or web address] Pul[facility] [address] [place] [address] [place] [phone] Robert Brock MD [address] [place] [address] [place] [address] Hemoptysis (Primary Dx); Bleeding from the nose; S/P femoropopliteal bypass surgery; Coronary artery disease involving coronary bypass graft of [place] heart without angina pectoris; H/O: lung cancer Social History Tobacco UseTypesPacks/DayYears UsedDateSmoking Tobacco: FormerCigarettes2.525 1968 - 1993Smokeless Tobacco: CurrentChewAlcohol UseStandard Drinks/WeekComments Not Currently0 (1 standard drink = 0.6 oz pure alcohol)PHQ-2AnswerDate Recorded Patient Health Questionnaire-2 Skqhh02808/14/2024Humiliation, Afraid, Rape, and Kick questionnaireAnswerDate RecordedWithin the [...] times a week06/15/2025How often do you attend shinto or holiness services?Never06/15/2025Do you belong to any clubs or organizations such as shinto groups, unions, fraternal or athletic groups, or school groups?No06/15/2025How often do you attend meetings of the clubs or organizations you belong to?Never06/15/2025re you , , , , never , or living with a partner?Qbttlciiy74/04/2025UDIT-C AnswerDate RecordedQ1: How often do you have [...] medical care, and heating?Not hard at all06/29/2025 [employer] [place] [employer] - Occupational Stress Questionnaire AnswerDate RecordedDo you feel stress - tense, restless, nervous, or anxious, or unable to sleep at night because yourmind is troubled all the time - these days? Only a xffeht8006/15/2025HC UtilitiesAnswerDate RecordedIn the past 12 months has [...] Assigned at BirthMale 04/08/2025 7:15 AM EDTLegal ShkFsdu9002/07/2022 10:15 PM EDTGender IdentityMale 04/08/2025 7:15 AM EDTSexual OrientationHeterosexual or Ialgtoey90/28/2025 7:15 AM EDTdocumented as of this encounter Last Filed Vital Signs Vital SignReadingTime TakenCommentsBlood Mcimhuix429/6807/22/2025 2:32 PM EST Zyzym195807/22/2025 2:26 PM ESTTemperature--Respiratory Rate--Oxygen Rtzmojvvof16% 07/22/2025 2:26 PM ESTroom air at restInhaled Oxygen Concentration--Kmlmha62.3 kg (155 lb)07/22/2025 2:26 PM NCLFhvgdk368.1 cm (5' 5 )07/22/2025 2:26 PM EST Body Mass Index25.7912 2:26 PM ESTdocumented in this encounter Progress Notes * David Reid MD - 07/22/2025 2:30 PM EST Images from the original note were not included. Pulmonary Clinic Visit Note Patient: You Garcia Age: 70 y.o. : 1955 Account No.: [id number] Chief complaint: New patient-hemoptysis HPI The patient [...] the morning and at bedtime. Historical Provider, lzjwbygpzse-ngsjhzssv-oomtfxgy (Trelegy Ellipta) 100-62.5-25 mcg blister with device [...] PHART 7.41 06/07/2025 PHVEN 7.28 (L) 07/01/2025 WBM5HQU 37 06/07/2025 BAV9QNE 43 07/01/2025 PO2ART 76 (L) 06/07/2025 PO2VEN 26 (L) 07/01/2025 WFO6ONF 23.5 06/07/2025 LUV4IBN 20.2 07/01/2025 Radiology: No Chest X-ray results [...] artery disease involving coronary bypass graft of [place] heart without angina pectoris H/O: lung cancer [...] worse in the meantime David Reid MD [facility] Pulmonary/Critical Care Fellow [1] Past Medical History: [...] noted assessment and plan. Robert Brock MD [facility] Physicians Pulmonary and Critical Care Medicine documented in this encounter Plan of Treatment DateTypeDepartmentCare Team (Latest Contact Info)Clewhfzasum75/12/2026 1:30 PM ESTHospital Encounter [facility] [[email or web address]] Main Operating Room [address] [place] [place] [address] Chris Andre MD [address] [facility] [place] [address] 08/23/2025 1:30 PM EST - 08/23/2025 5:00 PM ESTSurgery [facility] [[email or web address]] Main Operating Room [address] [place] [address] Chris Andre MD [address] [facility] [place] [address] ENDARTERECTOMY, FEMORAL WITH POSSIBLE FEM TO POP FZJWFI0909/21/2025 11:00 AM EST Follow-Up [facility] Nephrology [address] [place] [address] Batsheva Beckwith MD [address] [facility] [address] [facility] [place] [address] 10/21/2025 1:00 PM EDTAppointment [facility] [[email or web address]] CT Imaging [address] [place] [address] NameTypePriorityAssociated DiagnosesOrder ScheduleCT chest wo IV contrastImaging Routine Hemoptysis Expected: 10/20/2025, Expires: 07/22/2026NamePriorityAssociated Diagnoses Date/TimeENDARTERECTOMY, FEMORAL Peripheral arterial occlusive disease Encounter for pre-operative examination 08/23/2025 1:30 PM ESTdocumented as of this encounter Goals GoalPatient Goal TypeAssociated ProblemsRecent ProgressPatient-Stated?Author Blood Pressure < 140/90 Blood Tsnnukjr601/68(07/22/2025 2:32 PM EST)Cy Child, JOHANAdocumented as of this encounter Visit Diagnoses Diagnosis Encounter for pre-operative examination- Primary Peripheral arterial occlusive disease Unspecified peripheral vascular disease Hemoptysis- Primary Bleeding from the nose Epistaxis S/P femoropopliteal bypass surgery Coronary artery disease involving coronary bypass graft of [place] heart without angina pectoris H/O: lung cancer Personal history of malignant neoplasm of bronchus and lung Peripheral arterial occlusive disease Unspecified peripheral vascular disease Encounter for pre-operative examination documented in this encounter Care Teams Team MemberRelationshipSpecialtyStart DateEnd Date Susan Watson MD [address] [place] [address] PCP - GeneralNurse Practitioner10/13/24documented as of this encounter
[2025-08-04 20:31] VITALS: BP 118/54; PULSE 60; TEMP 36.8; O2SAT 99
[2025-08-04 20:48] VITALS: PULSE 60
[2025-08-04 20:51] VITALS: BP 110/58; PULSE 72; O2SAT 99
[2025-08-04 21:00] VITALS: BP 114/54; PULSE 71; O2SAT 98
--- NOTE | 2025-08-04 21:11 | ED.RECABL1 ---
HPI - Recheck/Abnormal Lab/Rx General Chief Complaint: Recheck/Abnormal Lab/Rx Stated Complaint: ABNORMAL LAB Time Seen by Provider: 08/04/25 21:06 Source: patient Mode of arrival: walk-in History of Present Illness HPI narrative: past history of CHF and CKD. states his PCP ordered labs and there was decrease in his renal function and he was advised to come to the ER. States he feels well. no chest pain or dyspnea. no nausea. Maybe a little woozy Related Data Home Medications ?Medication ?Instructions ?Recorded ?Confirmed aspirin 81 mg tablet,delayed 81 mg PO QDAY 07/12/25 08/04/25 release bupropion HCl 300 mg 24 hr tablet, 300 mg PO QDAY 07/12/25 08/04/25 extended release buspirone 15 mg tablet 15 mg PO BID 07/12/25 08/04/25 clopidogrel 75 mg tablet 75 mg PO QDAY 07/12/25 08/04/25 fenofibrate micronized 43 mg 43 mg PO QDAY 07/12/25 08/04/25 capsule isosorbide mononitrate 60 mg 60 mg PO QDAY 07/12/25 08/04/25 tablet,extended release 24 hr olanzapine 5 mg tablet 5 mg PO QPM 07/12/25 08/05/25 rivaroxaban 2.5 mg tablet (Xarelto) 2.5 mg PO BID 07/12/25 08/05/25 sertraline 100 mg tablet 100 mg PO QDAY 07/12/25 08/05/25 ferrous sulfate 325 mg (65 mg 325 mg PO QDAY 07/13/25 08/04/25 iron) tablet (FeroSul) famotidine 20 mg tablet 20 mg PO Q12H 08/05/25 08/05/25 Previous Rx's ?Medication ?Instructions ?Recorded furosemide 20 mg tablet 20 mg PO BID #60 tabs 07/16/25 metoprolol tartrate 50 mg tablet 25 mg (1/2 x 50 mg) PO BID #0 tabs 07/16/25 trazodone 100 mg tablet 100 mg PO HS #0 tabs 07/16/25 Allergies Allergy/AdvReac Type Severity Reaction Status Date / Time No Known Drug Allergies Allergy Verified 08/04/25 20:37 Review of Systems ROS Status of ROS 10 or more systems reviewed and unremarkable except as noted in history and below [facility] Medical History (Updated 08/05/25 @ 05:10 by Khalida Elizondo) Anxiety ?F41.9 - Anxiety disorder, unspecified (ICD-10) Chronic kidney disease ?N18.9 - Chronic kidney disease, unspecified (ICD-10) CHF (congestive heart failure) ?I50.9 - Heart failure, unspecified (ICD-10) History of lung cancer ?Z85.118 - Personal history of other malignant neoplasm of bronchus and lung (ICD-10) PVD (peripheral vascular disease) ?I73.9 - Peripheral vascular disease, unspecified (ICD-10) HTN (hypertension) ?I10 - Essential (primary) hypertension (ICD-10) Surgical History (Updated 07/13/25 @ 02:11 by Radha Garces RN) History of lobectomy of lung ?Z90.2 - Acquired absence of lung [part of] (ICD-10) Status post femoral-popliteal bypass surgery ?Z95.828 - Presence of other vascular implants and grafts (ICD-10) Family History (Updated 08/05/25 @ 03:50 by Khalida Elizondo) Sister Family history of colon cancer Family history of diabetes mellitus Brother Family history of heart disease Family history of myocardial infarction Mother Family history of diabetes mellitus Family history of hypertension Social History (Updated 08/05/25 @ 03:51 by Khalida Elizondo) Within the past year, how often did you have a drink containing alcohol: never Score interpretation: A score less than 4 is consistent with normal alcohol consumption. Smoking status: Former smoker Non-prescribed substance use: denies use Previous occupational history: retired Highest level of school completed/degree received: GED or equivalent Are you now , , , , never or living with a partner: In a typical week, how many times do you talk on the telephone with family, friends, or neighbors: 3 or more times per week How often do you get together with friends or relatives: 3 or more times per week Little interest or pleasure in doing things: not at all Feeling down, depressed, or hopeless: not at all Feel stressed/tense/nervous/anxious/difficulty sleeping: not at all Do you think of yourself as: straight/heterosexual Gender Identity: male Exam Constitutional Vital Signs, click to edit/add: Last Vital Signs Temp 98.6 F 08/05/25 18:30 Pulse 82 08/05/25 18:30 Resp 18 08/05/25 18:30 BP 126/67 08/05/25 18:30 Pulse Ox 92 L 08/05/25 18:30 O2 Del Method Room Air 08/05/25 18:30 Common normals: no apparent distress, average body habitus, oriented x3, no limitations, healthy appearing, alert and well nourished [facility] Common normals: normocephalic and head/scalp atraumatic Eye Common normals: EOMs intact bilaterally and conjunctivae normal Respiratory Common normals: normal respiratory effort, no retractions, no use of accessory muscles and clear to auscultation bilaterally Cardio Common normals: regular rate, regular rhythm, S1 normal heart sound and S2 normal heart sound GI Common normals: Normal to inspection, nondistended, normoactive bowel sounds present and soft to palpation Extremity Common normals: normal to inspection and full ROM Neuro Common normals: oriented x3, CN's II-XII intact bilaterally, moves all extremities and no focal motor deficits Psych Appearance: grossly normal Course Vital Signs Vital signs: Vital Signs Temperature 98.2 F 08/04/25 20:31 Pulse Rate 60 08/04/25 20:31 Respiratory Rate 18 08/04/25 20:31 Blood Pressure 118/54 08/04/25 20:31 Pulse Oximetry 99 08/04/25 20:31 Oxygen Delivery Method Room Air 08/04/25 20:31 Temperature 98.6 F 08/05/25 18:30 Pulse Rate 82 08/05/25 18:30 Respiratory Rate 18 08/05/25 18:30 Blood Pressure 126/67 08/05/25 18:30 Pulse Oximetry 92 L 08/05/25 18:30 Oxygen Delivery Method Room Air 08/05/25 18:30 MDM - Recheck/Abnormal Lab/Rx MDM Narrative Medical decision making narrative: patient sent to ER by family physician due to abnormal labs demonstrating acute on chronic renal failure. Patient denying any discomfort. UA with 5-10 WBC. bladder scan with 200cc of urine. CT without evidence of obstruction. Labs reviewed with hospitalist and patient accepted for admission Lab Data Labs: Lab Results 08/04/25 08/04/25 Range/Units 21:35 23:45 WBC 6.3 (4.0-11.0) 10^3/uL RBC 2.56 L (4.70-6.10) 10^6/uL Hgb 7.6 L (14.0-18.0) g/dL Hct 24.2 L (42.0-54.0) % MCV 94.5 H (80.0-94.0) fL MCH 29.7 (25.9-34.0) pg MCHC 31.4 (29.9-35.2) g/dL RDW 16.2 H (11.0-15.0) % Plt Count 120 L (150-450) 10^3/uL MPV 9.4 L (9.5-13.5) fL Neut % (Auto) 72.8 (43.0-75.0) % Lymph % (Auto) 15.4 L (20.5-60.0) % [place] % (Auto) 6.8 (1.7-12.0) % Eos % (Auto) 3.2 (0.9-7.0) % Baso % (Auto) 0.5 (0.2-2.0) % Neut # (Auto) 4.6 (1.4-6.5) 10^3/uL Lymph # (Auto) 1.0 L (1.2-3.8) 10^3/uL [place] # (Auto) 0.4 (0.3-0.8) 10^3/uL Eos # (Auto) 0.2 (0.0-0.7) 10^3/uL Baso # (Auto) 0.0 (0.0-0.1) 10^3/uL Abs Immat Gran (auto) 0.08 H (0.00-0.03) 10^3/uL Imm/Tot Granulo (auto) 1.3 H (0.0-0.5) % Sodium 141 (136-145) mmol/L Potassium 4.7 (3.5-5.1) mmol/L Chloride 105 (98-107) mmol/L Carbon Dioxide 27.5 (21.0-32.0) mmol/L Anion Gap 13.2 BUN 45.0 H (7.0-18.0) mg/dL Creatinine 3.84 H (0.70-1.30) mg/dL Est GFR ( Amer) 19 L (>=60 mL/min/1.73m^2) Est GFR (Non-Af Amer) 16 L (>=60 mL/min/1.73m^2) BUN/Creatinine Ratio 11.7 Glucose 87 (74-106) mg/dL Calcium 8.6 (8.5-10.1) mg/dL Troponin I High Sens 16.6 (4.0-76.1) pg/mL NT-Pro-B Natriuret Pep 1672.0 H* (<=900.0) pg/mL Urine Color Lt. yellow (YELLOW) Urine Clarity Sl cloudy (CLEAR) Urine pH 5.5 (5.0-9.0) Ur Specific [place] <=1.005 A (1.005-1.025) Urine Protein Negative (NEG/TRACE) mg/dL Urine Glucose (UA) Negative (NEGATIVE) mg/dL Urine Ketones Negative (NEGATIVE) mg/dL Urine Occult Blood Negative (NEGATIVE) Urine Nitrite Negative (NEGATIVE) Urine Bilirubin Negative (NEGATIVE) Urine Urobilinogen 0.2 (0.2-1.0) EU/dL Ur Leukocyte Esterase Trace A (NEGATIVE) Urine RBC None seen (0-2) #/HPF Urine WBC 5-10 A (NONE SEEN) #/HPF Ur Squamous Epith Cells None seen (NONE/RARE) #/LPF Urine Crystals None seen (None Seen) #/HPF Urine Bacteria Trace A (NONE SEEN) #/HPF Urine Casts None seen (NONE SEEN) #/LPF Urine Mucus None seen (NONE SEEN) Ur Culture Indicated? No Ur Random Creatinine 18.21 L (20.00-300.00) mg/dL Ur Random Sodium 65 (30-90) mmol/L Discharge Plan Discharge Chief Complaint: Recheck/Abnormal Lab/Rx Clinical Impression: Acute renal failure (ARF) Patient Disposition: Admitted As Inpatient Time of Disposition Decision: 03:30 Condition: Fair Discharge Date/Time: 08/05/25 03:50
--- NOTE | 2025-08-04 21:17 | XR_ITS ---
[place] [id number] Patient Name: KEL CASTILLO MRN: [id number] date: 1955 Sex: M Assigned Patient Location: ER Current Patient Location: ED.MAIN Accession/Order Number: [id number] Exam Date: 08/04/2025 09:45 Report Date: 08/04/2025 22:08 At the request of: RENEE CALDERA MD Procedure: XR chest 2V Plain film chest Single view HISTORY: Generalized weakness COMPARISON: 07/14/2025 FINDINGS: SUPPORT DEVICES: None POSTSURGICAL CHANGES: None HEART: Within normal limits PULMONARY ANKUR: Within normal limits MEDIASTINUM: Unremarkable LUNGS AND PLEURA: Stable right postsurgical change. Similar mild left interstitial changes. BONY STRUCTURES: Intact ADDITIONAL FINDINGS None XR/XR chest 2V IMPRESSION: No acute process. Stable right postsurgical change. Similar mild interstitial changes in the left. Impression dictated by: Damien Negrete M.D. 08/04/2025 10:08 PM Dictation Location: [place] [address] Electronically authenticated by: [id number] Y Date: 08/04/2025 22:08
--- OUTSIDE RECORDS SUMMARY | 2025-08-04 21:49 | XMS_ITS | Clinical Summary ---
Author Organization [employer] tem Address [id number] [address] [place] [address] Care Team Providers Care Bank Worker Name Role Phone Susan Watson APRN-[employer] CAPTAIN Primary Care Provider Allergies No known active [...] chest pain.4Active Active Problems ProblemNoted DateDiagnosed DateCervical wunpdznbnfq55/10/2025Neck pain11/19/2024 Frequent falls06/17/2024Functional gait ldjaqurlbgj50/06/2024hronic obstructive pulmonary disease, leibcpuuuwa68/31/2024Chronic kidney disease, stage 4 (severe) 4Closed nondisplaced fracture of greater tuberosity of left humerus with routine ndkodzi7909/19/2023oronary artery disease involving [place] coronary artery of [place] heart without angina /08/2024GAD (generalized anxiety disorder)09/19/2023Traumatic complete tear of left rotator cuff09/19/2023MCI (mild cognitive impairment)2Recurrent major depression in partial jexosicon61/01/2022Recurrent major depressive disorder, in full remission 2Primary tbsrcborqlfe32/17/2014bnormal results of cardiovascular function rcpbakc3009/30/2013 Overview (01/27/2025): MILD INFERIOR AND ANTERIOR ISCHEMIA EF 52% Chest pain09/18/2013Dyspnea and respiratory fexopbcurvayc47/07/2014 Overview (01/27/2025): 66 pk/yr history of smoking. Quit in 1994, when diagnosed with NSCLC and treated with RULobectomy and XRT. Also has extensive coronary disease, with CABG. Sees cardiology at [facility]. Anxiety, HTN, CKD IIIb. PCP started albuterol [...] without BD response. Atherosclerosis of arteries of elemzyroasn56/14/2013Intermittent claudication 08/25/2012Gastroesophageal reflux disease without qlyyiunhykz58/07/2012Migraine 07/18/2012Mixed gbavdidutihayw77/07/2012WeaknessDepression Social History Tobacco UseTypesPacks/DayYears UsedDateSmoking Tobacco: FormerCigarettes Smokeless Tobacco: CurrentChew Tobacco Cessation:Ready to Q uit: Not Asked; Counseling Given: Not Answered Alcohol UseStandard Drinks/WeekCommentsNever0 (1 standard drink = 0.6 oz pure alcohol)ChildcareAnswerDate DmtimygkRdwolzgikBxvxiuh84/21/2020EmploymentAnswer Date WwbcstjhAccqeeznvfVrwzcyt66/21/2020Hunger ScreeningAnswerDate Recorded Within the past 12 months we worried whether our food would run out before we got money to buy more.Never True03/10/2025Within the past 12 months the food we bought just didn't last and we didn't have money to get more.Never True 03/10/2025Purpose - LifeAnswerDate RecordedPurpose and direction in lifeUnknown 09/22/2020ex and Gender InformationValueDate RecordedSex Assigned at BirthNot on fileLegal NfcPque9010/02/2019 11:04 AM ESTGender IdentityNot on fileSexual OrientationNot on file Last Filed Vital Signs Vital SignReadingTime TakenCommentsBlood Jtauaski701/54003/10/2025 9:53 AM EDT Yzjpv442803/10/2025 9:53 AM ZAWLeabfzcwcbx80.2 ??C (97.2 ??F)02/19/2025 1:56 PM EDTRespiratory Wqxa307903/10/2025 9:53 AM EDTOxygen Vxbnrzkitf678%03/10/2025 9:53 AM EDTInhaled Oxygen Concentration--Wuwcjq47.9 kg (163 lb)03/10/2025 9:53 AM EDT Pghfyh091.1 cm (5' 5 )03/10/2025 9:53 AM EDTBody Mass Index27.12003/10/2025 9:53 AM EDT Plan of Treatment Health MaintenanceDue DateLast DoneCommentsTobacco Fvlwuzbpoi1955 Depression Nidnixxzp28/17/1965Adult BMI Follow Up Plan1971DTaP,Tdap and Td Vaccines (1 - Tdap)1972Zoster (Shingles) Vaccine (1 of 2)1972RSV ( or age 60+ yrs) (1 - Risk 50-74 years 1-dose series)2003Fall Risk Nxmrjhqii83/17/2018COVID-19 Vaccine ( - season)2025 08/06/2021, 11/08/2020, 10/19/2020Influenza Himlsbv29/07/2021, 08/03/2020Statin Use: Ilujiiczasmkub08dult BMI Screening Tobacco Lazyloapq66bdominal Aortic Aneurysm (AAA) OepbupVwrnqvbmu69/24/2020 Medical Devices Not on file Insurance Care Teams Team MemberRelationshipSpecialtyStart DateEnd Date Susan Watson, GERARDO-[employer] CAPTAIN PCP - GeneralNurse Practitioner01/11/25
--- OUTSIDE RECORDS SUMMARY | 2025-08-04 21:49 | XMS_ITS | Clinical Summary ---
Author Organization [facility] Address [address] [place] [id number] Care Team Providers Care Technical Clerk Name Role Phone Thomas Hurtado MD Unavailable Susan Watson CNP Primary Care Provider [phone] Allergies No known active allergies Medications * This document contains information received from the source organization and may not represent a complete record from that organization. MedicationSigDispense QuantityRefillsLast FilledStart DateEnd DateStatus albuterol HFA (PROVENTIL HFA, VENTOLIN HFA) 90 mcg/actuation inhaler INHALE 1 PUFF BY MOUTH EVERY 4 HOURS KABIAW4512/02/2021ctive amLODIPine (NORVASC) 5 mg tablet amlodipine 5 [...] 1/2 TABLETS BY MOUTH EVERY DAYActive omega 8-vbf-lgo-fish oil (FISH OIL) 100-160-1,000 mg cap Take [...] remission 04/12/2022MCI (mild cognitive impairment)2Dyspnea and respiratory tgizqvjewqqct27/01/2022 Overview (02/09/2022): 66 pk/yr history of smoking. Quit in 1994, when diagnosed with NSCLC and treated with RULobectomy and XRT. Also has extensive coronary disease, with CABG. Sees cardiology at [facility]. Anxiety, HTN, CKD IIIb. PCP started albuterol [...] present. ?? Pulmonary rehabilitation. ?? Referral to state's attorney here, at his request. ?? Echocardiogram. ?? Stop advair and breo today and start spiriva. His COPD classification would indicate a LAMA onlyfor most patients. Social History Tobacco UseTypesPacks/DayYears UsedDateSmoking Tobacco: NeverSmokeless Tobacco: FormerChewQuit: 07/14/2022 Tobacco Cessation:Counseling Given: Not Answered Alcohol UseStandard Drinks/WeekCommentsNot Currently0 (1 standard drink = 0.6 oz pure alcohol)PHQ-2AnswerDate RecordedPHQ-2 zxses314/04/2025Area Deprivation IndexAnswerDate RecordedNational Score (1-100), lower number is lower risk87 05/16/2023State Score (1-10), lower number is lower axdd0073Data from: https://www.neighborhoodatlas.medicine.[facility].edu/. Last address used for lnkhonvoeag[address]05/16/2023Sex and Gender InformationValueDate Recorded Sex Assigned at BirthNot on fileLegal GagDwzs2512/05/2021 11:57 AM EDTGender IdentityNot on fileSexual OrientationNot on file Last Filed Vital Signs Vital SignReadingTime TakenCommentsBlood Gufwpjhw080/6209 11:06 AM EDT Qwozo3564 11:06 AM EUYJkbofndlazc11.4 ??C (97.5 ??F)02/09/2022 11:04 AM EDTRespiratory Cxyq4140 11:04 AM EDTOxygen Iwjwqoyiss42%04/01/2025 2:14 PM EDTInhaled Oxygen Concentration--Zyyweq77.6 kg (160 lb)04/29/2025 11:06 AM EDTper twnfjefEghaki844.6 cm (5' 6 )04/01/2025 2:14 PM EDTBody Mass Index25.82 04/01/2025 2:14 PM EDT Plan of Treatment Health MaintenanceDue DateLast DoneCommentsAnnual PCP Team Chronic Disease Visit 1971Anxiety Rffquhfri28/17/1971Hepatitis C Aiwwxaztz84/17/1971LDL Avjhxdidnpg91/17/1971DTaP,Tdap,Td Vaccine (1 - Tdap)1972CT Colonography 1998Cologuard (FIT-DNA)04/28/19982304Wzothvfpjje06/17/1998Colorectal Cancer Pjxsxrxnc36/17/1998Fecal Occult Blood04/28/19982081Ntcyxpypuskcd97/17/1998RSV Vaccine (1 - Risk 50-74 years 1-dose series)2003Shingrix Vaccine (1 of 2) 2003Advance Directive Udrvywhkhk35/01/2025Medicare Advantage Annual Wellness Visit5Covid-19 Vaccine ( season)2025 08/06/2021, 11/08/2020, 10/19/2020Influenza Vaccine (#1), 08/03/2020Serum Tsscywmxfw60/28/68267604/08/2025, 01/12/2025, 10/20/2024, Additional history existsDiabetes Mfkcyjmnz60/28/58774604/08/2025, 05/19/2021, 10/02/2019Lipid Ocqysdmrl60, 4Pneumococcal Vaccine: 50+Lthodsanc34/23/2020, 08/27/2019 Goals GoalPatient Goal TypeAssociated ProblemsRecent ProgressPatient-Stated?Author Blood Pressure < 130/80 Blood Kyugeclo637/62(04/29/2025 11:06 AM EDT)Michael Garcia MD Insurance Care Teams Team MemberRelationshipSpecialtyStart DateEnd Date Susan Watson CNP [address] [place] [address] PCP - GeneralFamily Medicine04/01/25 Thomas Hurtado MD [address] [place] [address] MICHAEL Referring TeamPsychiatry12/21/21
--- OUTSIDE RECORDS SUMMARY | 2025-08-04 21:49 | XMS_ITS | Encounter Summary ---
Author Organization [facility] Address [address] [place] [address] Care Team Providers Care Lime Burner Name Role Phone Susan Watson MD Primary Care Provider [phone] Encounter Details DateTypeDepartmentCare Team (Latest Contact Info)Fpbxhisntvs57/18/2025Telephone [address] [place] [phone] Adrianne Reynolds MA Social History Tobacco UseTypesPacks/DayYears UsedDateSmoking Tobacco: FormerCigarettes2.525 1968 - 1993Smokeless Tobacco: CurrentChewAlcohol UseStandard Drinks/WeekComments Not Currently0 (1 standard drink = 0.6 oz pure alcohol)PHQ-2AnswerDate Recorded Patient Health Questionnaire-2 Ngbei61408/14/2024Humiliation, Afraid, Rape, and Kick questionnaireAnswerDate RecordedWithin the [...] week06/15/2025How often do you attend yazidi or yarsani services?Never06/15/2025Do you belong to any clubs or organizations such as yazidi groups, unions, fraternal or athletic groups, or school groups?No06/15/2025How often do you attend meetings of the clubs or organizations you belong to?Never06/15/2025re you , , , , never , or living with a partner?Exvbzamfc34/04/2025UDIT-C AnswerDate RecordedQ1: How often do you have [...] medical care, and heating?Not hard at all06/29/2025 [facility] of Occupational Health - Occupational Stress Questionnaire AnswerDate RecordedDo you feel stress - tense, restless, nervous, or anxious, or unable to sleep at night because yourmind is troubled all the time - these days? Only a rldvum4306/15/2025HC UtilitiesAnswerDate RecordedIn the past 12 months has the [employer], gas, oil, or water [employer] threatened to shut off services in your [...] Assigned at BirthMale 04/08/2025 7:15 AM EDTLegal LicGrrs3902/07/2022 10:15 PM EDTGender IdentityMale 04/08/2025 7:15 AM EDTSexual OrientationHeterosexual or Tcjivpar36/28/2025 7:15 AM EDTdocumented as of this encounter [...] review and call to coordinate appt dates/time [phone]. Thank you This phone message was created by the Ambulatory float staff. If you need customer support professional follow up regarding this patient, please make your appropriate clinic staff member aware. Thank you. documented in this encounter Plan of Treatment DateTypeDepartmentCare Team (Latest Contact Info)Twlrwjszmgj02/12/2026 1:30 PM ESTHospital Encounter [facility] Main Operating Room [address] [place] [phone] Chris Andre MD [address] [facility] [facility] [place] [phone] 08/23/2025 1:30 PM EST - 08/23/2025 5:00 PM ESTSurgery [facility] Main Operating Room [address] [place] [address] Chris Andre MD [address] [facility] [facility] [place] [address] ENDARTERECTOMY, FEMORAL WITH POSSIBLE FEM TO POP PEQRKX1409/21/2025 11:00 AM EST Follow-Up [facility] Nephrology [address] [facility] [place] [address] Batsheva Beckwith MD [address] [facility] 2 [facility] [place] [address] 10/21/2025 1:00 PM EDTAppointment [facility] CT Imaging [address] [facility] [facility] [place] [phone] NamePriorityAssociated DiagnosesDate/TimeENDARTERECTOMY, FEMORAL Peripheral arterial occlusive disease Encounter for pre-operative examination 08/23/2025 1:30 PM ESTdocumented as of this encounter Goals GoalPatient Goal TypeAssociated ProblemsRecent ProgressPatient-Stated?Author Blood Pressure < 140/90 Blood Vougjqsy480/68(07/22/2025 2:32 PM EST)Cy Child, RNdocumented as of this encounter Visit Diagnoses Not on filedocumented in this encounter Care Teams Team MemberRelationshipSpecialtyStart DateEnd Date Susan Watson MD [address] [place] [address] PCP - GeneralNurse Practitioner10/13/24documented as of this encounter
--- OUTSIDE RECORDS SUMMARY | 2025-08-04 21:49 | XMS_ITS | Encounter Summary ---
Author Organization [facility] Address [address] [place] [address] Care Team Providers Care Perishable Fruit Inspector Name Role Phone Susan Watson MD Primary Care Provider [phone] Encounter Details DateTypeDepartmentCare Team (Latest Contact Info)Newpcrzealk28/15/2025Telephone [facility] [address] [place] [address] Melody Cheung MA Social History Tobacco UseTypesPacks/DayYears UsedDateSmoking Tobacco: FormerCigarettes2.525 1968 - 1993Smokeless Tobacco: CurrentChewAlcohol UseStandard Drinks/WeekComments Not Currently0 (1 standard drink = 0.6 oz pure alcohol)PHQ-2AnswerDate Recorded Patient Health Questionnaire-2 Geokd40308/14/2024Humiliation, Afraid, Rape, and Kick questionnaireAnswerDate RecordedWithin the [...] times a week06/15/2025How often do you attend zoroastrian or advent services?Never06/15/2025Do you belong to any clubs or organizations such as zoroastrian groups, unions, fraternal or athletic groups, or school groups?No06/15/2025How often do you attend meetings of the clubs or organizations you belong to?Never06/15/2025re you , , , , never , or living with a partner?Mrzsuivmz96/04/2025UDIT-C AnswerDate RecordedQ1: How often do you have [...] hard at all06/29/2025 [facility] [place] of Occupational Health - Occupational Stress Questionnaire AnswerDate RecordedDo you feel stress - tense, restless, nervous, or anxious, or unable to sleep at night because yourmind is troubled all the time - these days? Only a zwuspj3006/15/2025HC UtilitiesAnswerDate RecordedIn the past 12 months has the [employer], gas, oil, or water [employer] threatened to shut off services in your [...] homeless or living in a alf (including now)?No06/29/2025Hunger Vital SignAnswerDate Recorded Within the past 12 months, you worried that your food would run out before you got the money to buymore.Never true06/29/2025Within the past 12 months, the food you bought just didn't last and you didn't have money to get more.Never true 06/29/2025Sex and Gender InformationValueDate RecordedSex Assigned at BirthMale 04/08/2025 7:15 AM EDTLegal JzkBqqj6102/07/2022 10:15 PM EDTGender IdentityMale 04/08/2025 7:15 AM EDTSexual OrientationHeterosexual or Fjvhjrcc10/28/2025 7:15 AM EDTdocumented as of this encounter [...] Plan of Treatment DateTypeDepartmentCare Team (Latest Contact Info)Nedkkgfgkfl93/12/2026 1:30 PM ESTHospital Encounter [facility] Main Operating Room [address] [place] [phone] Chris Andre MD [address] [place] [place] [address] 08/23/2025 1:30 PM EST - 08/23/2025 5:00 PM ESTSurgery [facility] Main Operating Room [address] [place] [phone] Chris Andre MD [address] [place] [address] ENDARTERECTOMY, FEMORAL WITH POSSIBLE FEM TO POP NXHUJR0909/21/2025 11:00 AM EST Follow-Up [facility] Nephrology [address] [place] [address] Batsheva Beckwith MD [address] [facility] [address] 2 [facility] [place] [address] 10/21/2025 1:00 PM EDTAppointment [facility] CT Imaging [address] [place] [phone] NamePriorityAssociated DiagnosesDate/TimeENDARTERECTOMY, FEMORAL Peripheral arterial occlusive disease Encounter for pre-operative examination 08/23/2025 1:30 PM ESTdocumented as of this encounter Goals GoalPatient Goal TypeAssociated ProblemsRecent ProgressPatient-Stated?Author Blood Pressure < 140/90 Blood Ydozmtrh616/68(07/22/2025 2:32 PM EST)Cy Child, JOHANAdocumented as of this encounter Visit Diagnoses Not on filedocumented in this encounter Care Teams Team MemberRelationshipSpecialtyStart DateEnd Date Susan Watson MD [address] [place] [address] PCP - GeneralNurse Practitioner10/13/24documented as of this encounter
--- OUTSIDE RECORDS SUMMARY | 2025-08-04 21:49 | XMS_ITS | Encounter Summary ---
Author Organization [facility] Address [address] [place] [address] Care Team Providers Care Communications Tech Name Role Phone Susan Watson MD Primary Care Provider [phone] Encounter Details DateTypeDepartmentCare Team (Latest Contact Info)Zbxqmqqrejx66/15/2025Orders Only [facility] [address] [place] [phone] David Reid MD [address] [place] [address] [place] [address] Social History Tobacco UseTypesPacks/DayYears UsedDateSmoking Tobacco: FormerCigarettes2.525 1968 - 1993Smokeless Tobacco: CurrentChewAlcohol UseStandard Drinks/WeekComments Not Currently0 (1 standard drink = 0.6 oz pure alcohol)PHQ-2AnswerDate Recorded Patient Health Questionnaire-2 Hzosv63008/14/2024Humiliation, Afraid, Rape, and Kick questionnaireAnswerDate RecordedWithin the [...] week06/15/2025How often do you attend orthodox or muslim services?Never06/15/2025Do you belong to any clubs or organizations such as orthodox groups, unions, fraternal or athletic groups, or school groups?No06/15/2025How often do you attend meetings of the clubs or organizations you belong to?Never06/15/2025re you , , , , never , or living with a partner?Tzpvljkkv74/04/2025UDIT-C AnswerDate RecordedQ1: How often do you have [...] medical care, and heating?Not hard at all06/29/2025 [facility] [place] of Occupational Health - Occupational Stress Questionnaire AnswerDate RecordedDo you feel stress - tense, restless, nervous, or anxious, or unable to sleep at night because yourmind is troubled all the time - these days? Only a xlvdsk7206/15/2025HC UtilitiesAnswerDate RecordedIn the past 12 months has the [employer], gas, oil, or water [employer] threatened to shut off services in your [...] Assigned at BirthMale 04/08/2025 7:15 AM EDTLegal WrbZqos1902/07/2022 10:15 PM EDTGender IdentityMale 04/08/2025 7:15 AM EDTSexual OrientationHeterosexual or Kasnivcr65/28/2025 7:15 AM EDTdocumented as of this encounter Plan of Treatment DateTypeDepartmentCare Team (Latest Contact Info)Fxqaepffhyl20/12/2026 1:30 PM ESTHospital Encounter [facility] Main Operating Room [address] [place] [address] Chris Andre MD [address] [place] [place] [address] 08/23/2025 1:30 PM EST - 08/23/2025 5:00 PM ESTSurgery [facility] Main Operating Room [address] [place] [address] Chris Andre MD [address] [place] [phone] 684- ENDARTERECTOMY, FEMORAL WITH POSSIBLE FEM TO POP DFNNKZ0309/21/2025 11:00 AM EST Follow-Up [facility] Nephrology [address] [facility] [place] [phone] Batsheva Beckwith MD [address] [facility] 2 [facility] [place] [address] 10/21/2025 1:00 PM EDTAppointment [facility] CT Imaging [address] [place] [address] NamePriorityAssociated DiagnosesDate/TimeENDARTERECTOMY, FEMORAL Peripheral arterial occlusive disease Encounter for pre-operative examination 08/23/2025 1:30 PM ESTdocumented as of this encounter Goals GoalPatient Goal TypeAssociated ProblemsRecent ProgressPatient-Stated?Author Blood Pressure < 140/90 Blood Yiboohyn657/68(07/22/2025 2:32 PM EST)Cy Child, RNdocumented as of this encounter Visit Diagnoses Not on filedocumented in this encounter Care Teams Team MemberRelationshipSpecialtyStart DateEnd Date Susan Watson MD [address] [facility] [place] [address] PCP - GeneralNurse Practitioner10/13/24documented as of this encounter
--- OUTSIDE RECORDS SUMMARY | 2025-08-04 21:50 | XMS_ITS | Clinical Summary ---
Author Organization [facility] Address [address] [place] [address] Care Team Providers Care Superintendent Construction Name Role Phone Jose Beckford MD Primary Care Provider [phone] Cherelle Coronado NP Unavailable [phone] Allergies No known active allergies Medications MedicationSigDispense QuantityRefillsLast FilledStart DateEnd DateStatus albuterol HFA 90 mcg/act inhaler Inhale 2 puffs every 4 (four) hours if needed for wheezingActive nitroglycerin (Nitrostat) 0.4 MG SL tablet Indications:Coronary artery disease involving tejon coronary artery of tejon heart without angina pectorisPlace 1 tablet (0.4 [...] morning. Take with meals. 90 capsule tive Ejpydtcqvfp-Uxgxiusfw-Nwazli (Trelegy Ellipta) 100-62.5-25 MCG/ACT aerosol powder Indications:Chronic obstructive pulmonary disease, unspecified COPD type (HCC) Inhale 1 puff Daily Rinse mouth after use. Inhale 1 puff Daily 180 each tive isosorbide mononitrate ER (Imdur) 60 MG 24 hr tablet Indications:Primary hypertension,Coronary artery disease involving tejon coronary artery of tejon heart without angina pectorisTake 1 tablet (60 mg) by mouth Daily Do not crush or chew. 90 tablet 5Active lisinopril 10 MG tablet Indications:Primary hypertensionTake 1 tablet (10 mg) by mouth Daily 90 tablet tive metoprolol tartrate (Lopressor) 50 MG tablet Indications:Primary hypertension,Coronary artery disease involving tejon coronary artery of tejon heart without angina pectorisTake 1 tablet (50 [...] Active Problems ProblemNoted DateDiagnosed DateChronic diastolic heart qedwcvr9103/01/2025 Assessment & Plan (03/01/2025 7:08 AM EDT): Noted on ECHO: 02/18/2525 grade 3 Current meds: plavix, norvasc, imdur, raulito, b kelsy, Pulmonary wusttueqrhjl21/21/2025 Assessment & Plan (03/01/2025 7:09 AM EDT): Noted on ECHO from 02/18/25 pressure 46 Cervical vdceqkepluk51/10/2025 Assessment & Plan (03/01/2025 7:10 AM EDT): [...] Seems more muscle relatated Frequent falls06/17/2024Functional gait ihaktmrmxut30/06/2024 Assessment & Plan (06/22/2024 11:34 AM EST): [...] send referral today. Chronic obstructive pulmonary disease, rywlirlyevb22/31/2024 Assessment & Plan (03/01/2025 3:16 PM EDT): [...] recent exacerbations. Uses albuterol as needed. Primary ejsvxwzpgxlk66/31/2024 Assessment & Plan (03/01/2025 7:08 AM EDT): [...] greater tuberosity of left humerus with routine lzfrzxo7709/19/2023oronary artery disease involving tejon coronary artery of tejon heart without angina neenljxw14/08/2024 Assessment & Plan (03/01/2025 7:08 AM EDT): Established with [facility] Cardiology Current meds: asa, amlodipine, statin, plavix, imdur, raulito, b kelsy, and prn nitro Assessment & Plan (11/19/2024 7:00 AM EDT): Established with [facility] Cardiology Current meds: asa, amlodipine, statin, plavix, imdur, raulito, b kelsy, and prn nitro Assessment & Plan (10/08/2024 5:49 PM EST): Current meds: plavix, amlodipine, statin, b kelsy, nitroglycerin prn No acute symptoms, cont with [facility] Cardiology Assessment & Plan (03/11/2024 2:27 PM EDT): S/p CABG. On ASA, BB, Imdur, plavix, statin Denies CP, SOB, palpitations. Following [facility] cardiology. Assessment & Plan (09/19/2023 5:32 PM EST): S/p CABG. On ASA, BB, Imdur, plavix, statin Denies CP, SOB, palpitations. Following [facility] cardiology. Mixed bzxuermgnpvbaj94/08/2024 Assessment & Plan (10/08/2024 7:11 AM EST): [...] Avoid NSAIDS. C/w current regimen. H/O: lung xtorxe3709/19/2023Gastroesophageal reflux disease without esophagitis 09/19/2023 Assessment & [...] buspar, sertraline Pt's daughter is a pysch FOOD SANITARIAN, I have given daughter present today options [...] and neuropsych testing Atherosclerosis of arteries of ugwgxulbsah12/14/2013 Assessment & Plan (11/19/2024 7:00 AM EDT): Asa, plavix, statin Intermittent jquumffjnfji54/14/4866Bayykduf59/07/2012 Resolved Problems ProblemNoted DateDiagnosed DateResolved DateRecurrent major depression in partial nejhypaxi62/4Recurrent major depressive disorder, in full tezrbijfy80 Assessment & Plan (10/08/2024 5:51 PM EST): [...] Seasonal, Quadrivalent, Preservative Free05/23/2021,08/03/2020Pfizer Purple Cap SARS-CoV-2 Fnbdevkixik07/26/2021,11/08/2020,1Pneumococcal Conjugate PCV 13 08/27/2019Pneumococcal Polysaccharide EWLA866310/04/2019 Family History Medical HistoryRelationNameCommentsDiabetesMotherHeart diseaseMotherHypertension MotherDiabetesSisterRelationNameStatusCommentsFatherDeceasedMotherDeceasedSister x2 Social History Tobacco UseTypesPacks/DayYears UsedDateSmoking Tobacco: FormerCigarettesPassive Smoke Exposure: NeverSmokeless Tobacco: Never Tobacco Cessation:Counseling Given: Not Answered Alcohol UseStandard Drinks/WeekCommentsNever0 (1 standard drink = 0.6 oz pure alcohol)caffeine: 1-2 cups per vefM2000 Health LiteracyAnswerDate RecordedHow often do you need [...] relatives?Once a week02/28/2025How often do you attend gnosticism or restorationist services?Never02/28/2025Do you belong to any clubs or organizations such as gnosticism groups, unions, fraXplenty or athletic groups, or school groups?No 02/28/2025How often do you attend meetings of the clubs or organizations you belong to?Never02/28/2025re you , , , , never , or living with a partner?Ogeycyamg03/20/2025UDIT-CAnswerDate Recorded Q1: How often do you have [...] heating?Not very hard02/28/2025PHQ-2AnswerDate RecordedPatient Health Questionnaire-2 Score0 03/11/2024[facility] [place] of Occupational Health - Occupational Stress QuestionnaireAnswerDate RecordedDo you feel stress - tense, restless, nervous, or anxious, or unable to sleep at night because yourmind is troubled all the time - these days?To some volpdb9502/28/2025Exercise Vital SignAnswerDate Recorded On average, how many [...] steady place to sleep or slept in [facility] (including now)?No07/22/2023Housing Stability Vital SignAnswerDate RecordedIn the last 12 months, was there a time when you were not able to pay the mortgage or rent on time?No02/28/2025In the past 12 months, how many times have you moved where you were living? At any time in the past 12 months, were you homeless or living in a group home (including now)?02/28/2025Sex and Gender InformationValueDate RecordedSex Assigned at BirthNot on fileLegal RghQsuj3610/24/2022 10:05 PM EDTGender Identity Not on fileSexual OrientationNot on file Last Filed Vital Signs Vital SignReadingTime TakenCommentsBlood Ayvsledz212/6407 1:45 PM EDT Nrgkm565903/01/2025 1:45 PM SQJUkpogkrsuyv12.3 ??C (97.3 ??F)03/01/2025 1:45 PM EDTRespiratory Pdtb291903/01/2025 1:45 PM EDTOxygen Aoqatgajks53%03/01/2025 1:45 PM EDTInhaled Oxygen Concentration--Yhkszz35.6 kg (166 lb 9.6 oz)03/01/2025 1:45 PM OKYPjcfrl155.7 cm (5' 8 )06/17/2024 1:13 PM ESTBody Mass Index25.33108/17/2023 1:13 PM EST Plan of Treatment Not on file Insurance Care Teams Team MemberRelationshipSpecialtyStart DateEnd Date Jose Beckford MD PCP - GeneralFamily Unueprtj25/29/24 Cherelle Coronado NP Nurse PractitionerFamily Excoyvhl07/29/24
--- OUTSIDE RECORDS SUMMARY | 2025-08-04 21:50 | XMS_ITS | Encounter Summary ---
Author Organization [facility] Address [address] [place] [address] Care Team Providers Care Store Team Member Name Role Phone Susan Watson MD Primary Care Provider [phone] Encounter Details DateTypeDepartmentCare Team (Latest Contact Info)Gnjmttnirbp39/09/2025bstract [facility] [[email or web address] [address] [place] [address] Mala Cooper NP [address] [place] [address] Social History Tobacco UseTypesPacks/DayYears UsedDateSmoking Tobacco: FormerCigarettes Smokeless Tobacco: CurrentChewAlcohol UseStandard Drinks/WeekCommentsNot Currently0 (1 standard drink = 0.6 oz pure alcohol)PHQ-2AnswerDate Recorded Patient Health Questionnaire-2 Sydps48108/14/2024Humiliation, Afraid, Rape, and Kick questionnaireAnswerDate RecordedWithin the [...] times a week06/15/2025How often do you attend zoroastrianism or congregational services?Never06/15/2025Do you belong to any clubs or organizations such as zoroastrianism groups, unions, fraternal or athletic groups, or school groups?No06/15/2025How often do you attend meetings of the clubs or organizations you belong to?Never06/15/2025re you , , , , never , or living with a partner?Fgmipbjym93/04/2025UDIT-C AnswerDate RecordedQ1: How often do you have [...] medical care, and heating?Not hard at all06/29/2025 [facility] [place] of Occupational Health - Occupational Stress Questionnaire AnswerDate RecordedDo you feel stress - tense, restless, nervous, or anxious, or unable to sleep at night because yourmind is troubled all the time - these days? Only a pdorrl6106/15/2025HC UtilitiesAnswerDate RecordedIn the past 12 months has the [employer], gas, oil, or water [employer] threatened to shut off services in your [...] Assigned at BirthMale 04/08/2025 7:15 AM EDTLegal NekPiez5502/07/2022 10:15 PM EDTGender IdentityMale 04/08/2025 7:15 AM EDTSexual OrientationHeterosexual or Ealrycbq08/28/2025 7:15 AM EDTdocumented as of this encounter Plan of Treatment DateTypeDepartmentCare Team (Latest Contact Info)Jwflrjmoqrz31/12/2026 1:30 PM ESTHospital Encounter [facility] [[email or web address]] Main Operating Room [address] [place] [address] Chris Andre MD [address] [place] [address] 08/23/2025 1:30 PM EST - 08/23/2025 5:00 PM ESTSurgery [facility] [[email or web address] Main Operating Room [address] [place] [address] Chris Andre MD [address] [place] [place] [phone] ENDARTERECTOMY, FEMORAL WITH POSSIBLE FEM TO POP VLSMLM3309/21/2025 11:00 AM EST Follow-Up [facility] [address] [place] [address] Batsheva Beckwith MD [address] [facility] [place] [address] 10/21/2025 1:00 PM EDTAppointment [facility] [[email or web address] CT Imaging [address] [place] [place] [address] NamePriorityAssociated DiagnosesDate/TimeENDARTERECTOMY, FEMORAL Peripheral arterial occlusive disease Encounter for pre-operative examination 08/23/2025 1:30 PM ESTdocumented as of this encounter Goals GoalPatient Goal TypeAssociated ProblemsRecent ProgressPatient-Stated?Author Blood Pressure < 140/90 Blood Aucisfdj472/68(07/22/2025 2:32 PM EST)Cy Child, JOHANAdocumented as of this encounter Visit Diagnoses Not on filedocumented in this encounter Care Teams Team MemberRelationshipSpecialtyStart DateEnd Date Susan Watson MD [address] [place] [address] PCP - GeneralNurse Practitioner10/13/24documented as of this encounter
--- OUTSIDE RECORDS SUMMARY | 2025-08-04 21:50 | XMS_ITS | Encounter Summary ---
Author Organization [facility] Address [address] [place] [address] Care Team Providers Care Oil Inspector Name Role Phone Susan Watson MD Primary Care Provider [phone] Encounter Details DateTypeDepartmentCare Team (Latest Contact Info)Agpjdtisvjp52/16/2025Results Follow-Up [facility] at [facility] Nephrology [address] [place] [address] Batsheva Beckwith MD [address] [facility] [address] 2 [facility] [place] [address] Urinalysis with microscopic, Microalbumin, urine, random, Creatinine, urine, random, Additional followed-up results: 6 Social History Tobacco UseTypesPacks/DayYears UsedDateSmoking Tobacco: FormerCigarettes Smokeless Tobacco: NeverAlcohol UseStandard Drinks/WeekCommentsNot Currently0 (1 standard drink = 0.6 oz pure alcohol)PHQ-2AnswerDate RecordedPatient Health Questionnaire-2 Lwpxk84908/14/2024Humiliation, Afraid, Rape, and Kick questionnaireAnswerDate RecordedWithin the [...] week06/15/2025How often do you attend taoism or mosque services?Never06/15/2025Do you belong to any clubs or organizations such as taoism groups, unions, fraternal or athletic groups, or school groups?No 06/15/2025How often do you attend meetings of the clubs or organizations you belong to?Never06/15/2025re you , , , , never , or living with a partner?Ulgbfpsoe88/04/2025UDIT-CAnswerDate Recorded Q1: How often do you have [...] housing, medical care, and heating?Not hard at all06/29/2025[facility] [place] of Occupational Health - Occupational Stress QuestionnaireAnswerDate RecordedDo you feel stress - tense, restless, nervous, or anxious, or unable to sleep at night because yourmind is troubled all the time - these days?Only a wzfbjr3906/15/2025 [facility] UtilitiesAnswerDate RecordedIn the past 12 months has the [employer], gas, oil, or water [employer] threatened to shut off services in your [...] in a prison (including now)?No06/29/2025Hunger Vital SignAnswerDate RecordedWithin the past 12 months, you worried that your food would run out before you got the money to buymore.Never true06/29/2025Within the past 12 months, the food you bought just didn't last and you didn't have money to get more.Never true 06/29/2025Sex and Gender InformationValueDate RecordedSex Assigned at BirthMale 04/08/2025 7:15 AM EDTLegal FfyItea7702/07/2022 10:15 PM EDTGender IdentityMale 04/08/2025 7:15 AM EDTSexual OrientationHeterosexual or Qrkhbqce95/28/2025 7:15 AM EDTdocumented as of this encounter Functional Status * AUDIT-C ScoreAnswerDate of DqpemhsiirAvenbb713/04/2025 10:41 PM Sari Rogers * Alcohol UseQuestionAnswerDate of AssessmentAuthorQ1: How often do you have a drink containing alcohol?Never06/15/2025 10:41 PM Sari RogersQ2: How many drinks containing alcohol do you have on a typical day when you are drinking?Patient does not drink06/15/2025 10:41 PM Sari RogersQ3: How often do you have six or more drinks on one occasion?Never06/15/2025 10:41 PM Sair Rogers * QuestionAnswerDate of AssessmentAuthorTrouble falling or [...] PM Bambi Levin MA Patient Health Questionnaire-2 Rfltl46208/14/2024 2:37 PM Bambi Levin MA * Calculated C-SSRS Risk Score (Lifetime/Recent)AnswerDate of AssessmentAuthorNo Risk Qqapfuejc01/05/2025 12:12 AM Cy Cordon RN * Suicidal [...] Plan of Treatment DateTypeDepartmentCare Team (Latest Contact Info)Bfnarwbcrol15/12/2026 1:30 PM ESTHospital Encounter [facility] Main Operating Room [address] [place] [phone] Chris Andre MD [address] [place] [phone] 08/23/2025 1:30 PM EST - 08/23/2025 5:00 PM ESTSurgery [facility] Main Operating Room [address] [place] [phone] Chris Andre MD [address] [place] [phone] ENDARTERECTOMY, FEMORAL WITH POSSIBLE FEM TO POP DZVSPT9709/21/2025 11:00 AM EST Follow-Up [facility] Nephrology [address] [place] [address] Batsheva Beckwith MD [address] [facility] 2 [facility] [place] [address] 10/21/2025 1:00 PM EDTAppointment [facility] CT Imaging [address] [place] [address] NamePriorityAssociated DiagnosesDate/TimeENDARTERECTOMY, FEMORAL Peripheral arterial occlusive disease Encounter for pre-operative examination 08/23/2025 1:30 PM ESTdocumented as of this encounter Goals GoalPatient Goal TypeAssociated ProblemsRecent ProgressPatient-Stated?Author Blood Pressure < 140/90 Blood Hjpkltny866/68(07/22/2025 2:32 PM EST)Cy Child RNdocumented as of this encounter Results * (ABNORMAL) Basic metabolic panel (05/31/2025 11:59 AM EDT)ComponentValueRef RangeTest MethodAnalysis TimePerformed AtPathologist ZejlpcsepZjsave715125 - 145 mmol/L10/ 12:43 PM [facility] ([facility])Potassium5.13.5 - 5.1 mmol/L1 12:43 PM [facility] ([facility])Qampogoy237(H)98 - 107 mmol/L1 12:43 PM [facility] ([facility])KF48212 - 31 mmol/L 05/31/2025 12:43 PM [facility] ([facility])BUN36(H)7 - 25 mg/dL 05/31/2025 12:43 PM [facility] ([facility])Creatinine1.97(H)0.70 - 1.30 mg/dL05/31/2025 12:43 PM [facility] ([facility])Gcnzdeb4901 - 100 mg/dL 05/31/2025 12:43 PM [facility] ([facility])Calcium8.98.6 - 10.3 mg/dL 05/31/2025 12:43 PM [facility] ([facility])Anion Wsd894 - 20 mmol/L 05/31/2025 12:43 PM [facility] ([facility])eGFR35.4(L)>60.0 mL/min/1.73m* 12:43 PM [facility] ([facility])Comment:[facility]???s estimated glomerular filtration rate (eGFR) will no [...] one group of individuals.BUN/Creatinine Ratio18.310 12:43 PM [facility] ([facility])Specimen (Source)Anatomical Location / LateralityCollection Method / VolumeCollection TimeReceived TimeBloodVenous blood specimen / Unknown Venipuncture / Brgmzhz4305/31/2025 11:59 AM EDT1 12:13 PM EDT Narrative Authorizing ProviderResult TypeResult StatusZubia Tang CEE BLOOD ORDERABLES Final ResultPerforming OrganizationAddressCity/State/ZIP CodePhone Number [facility] ([facility]) [address] [place] [address] documented in this encounter Visit Diagnoses Diagnosis Hyperkalemia- Primary Hyperpotassemia Encounter for pre-operative examination- Primary Peripheral arterial occlusive disease Unspecified peripheral vascular disease Peripheral arterial occlusive disease Unspecified peripheral vascular disease Encounter for pre-operative examination documented in this encounter Care Teams Team MemberRelationshipSpecialtyStart DateEnd Date Susan Watson MD [facility] [place] [address] PCP - GeneralNurse Practitioner10/13/24documented as of this encounter
--- OUTSIDE RECORDS SUMMARY | 2025-08-04 21:50 | XMS_ITS | Encounter Summary ---
Author Organization [facility] Address [address] [place] [address] Care Team Providers Care Instructional Systems Design Consultant Name Role Phone Susan Watson MD Primary Care Provider Encounter Details DateTypeDepartmentCare Team (Latest Contact Info)Vssouswrdsa92/22/2025Results Follow-Up [facility] [address]ph[address] [address] Carolyn Romo MA Basic metabolic panel Social History Tobacco UseTypesPacks/DayYears UsedDateSmoking Tobacco: FormerCigarettes Smokeless Tobacco: NeverAlcohol UseStandard Drinks/WeekCommentsNot Currently0 (1 standard drink = 0.6 oz pure alcohol)PHQ-2AnswerDate RecordedPatient Health Questionnaire-2 Xmkjb51808/14/2024Humiliation, Afraid, Rape, and Kick questionnaireAnswerDate RecordedWithin the [...] week06/15/2025How often do you attend druze or nondenominational services?Never06/15/2025Do you belong to any clubs or organizations such as druze groups, unions, fraternal or athletic groups, or school groups?No 06/15/2025How often do you attend meetings of the clubs or organizations you belong to?Never06/15/2025re you , , , , never , or living with a partner?Lvfdpiwdl71/04/2025UDIT-CAnswerDate Recorded Q1: How often do you have [...] housing, medical care, and heating?Not hard at all06/29/2025[facility] [place] of Occupational Health - Occupational Stress QuestionnaireAnswerDate RecordedDo you feel stress - tense, restless, nervous, or anxious, or unable to sleep at night because yourmind is troubled all the time - these days?Only a aclyuf2106/15/2025 [facility] UtilitiesAnswerDate RecordedIn the past 12 months has the [employer]), gas, oil, or water [employer] threatened to shut off services in your [...] in a fpc (including now)?No06/29/2025Hunger Vital SignAnswerDate RecordedWithin the past 12 months, you worried that your food would run out before you got the money to buymore.Never true06/29/2025Within the past 12 months, the food you bought just didn't last and you didn't have money to get more.Never true 06/29/2025Sex and Gender InformationValueDate RecordedSex Assigned at [facility] 04/08/2025 7:15 AM EDTLegal ZxmSlws0702/07/2022 10:15 PM EDTGender IdentityMale 04/08/2025 7:15 AM EDTSexual OrientationHeterosexual or Dddnbpai40/28/2025 7:15 AM EDTdocumented as of this encounter Functional Status * AUDIT-C ScoreAnswerDate of TevcekacobHouywb470/04/2025 10:41 PM Sari Rogers * Alcohol UseQuestionAnswerDate [...] PM Bambi Levin MA Patient Health Questionnaire-2 Ryxmq14608/14/2024 2:37 PM Bambi Levin MA * Calculated C-SSRS Risk Score (Lifetime/Recent)AnswerDate of AssessmentAuthorNo Risk Vqpffecqh90/05/2025 12:12 AM Cy Cordon RN * Suicidal [...] Plan of Treatment DateTypeDepartmentCare Team (Latest Contact Info)Szuwahgeaqn80/12/2026 1:30 PM ESTHospital Encounter [facility] Main Operating Room [address] [place] [address] Chris Andre MD [address] [place] [phone] 08/23/2025 1:30 PM EST - 08/23/2025 5:00 PM ESTSurgery [facility] Main Operating Room [address] [place] [address] Chris Andre MD [address] [place] [phone] ENDARTERECTOMY, FEMORAL WITH POSSIBLE FEM TO POP ZYEORL7409/21/2025 11:00 AM EST Follow-Up [facility] Nephrology [address] [facility] [place] [address] Batsheva Beckwith MD [address] [facility] 2 [facility] [place] [address] 10/21/2025 1:00 PM EDTAppointment [facility] CT Imaging [address] [place] [phone] NamePriorityAssociated DiagnosesDate/TimeENDARTERECTOMY, FEMORAL Peripheral arterial occlusive disease Encounter for pre-operative examination 08/23/2025 1:30 PM ESTdocumented as of this encounter Goals GoalPatient Goal TypeAssociated ProblemsRecent ProgressPatient-Stated?Author Blood Pressure < 140/90 Blood Xgevymns158/68(07/22/2025 2:32 PM EST)Cy Child, RNdocumented as of this encounter Visit Diagnoses Not on filedocumented in this encounter Care Teams Team MemberRelationshipSpecialtyStart DateEnd Date Susan Watson MD [address] [place] [address] PCP - GeneralNurse Practitioner10/13/24documented as of this encounter
--- OUTSIDE RECORDS SUMMARY | 2025-08-04 21:50 | XMS_ITS | Clinical Summary ---
Author Organization [facility] Address [address] [place] [address] Phone Care Team Providers Care Account Services Manager Name Role Phone Unavailable Primary Care Provider Unavailabl e Social History Tobacco UseTypesPacks/DayYears UsedDateSmoking Tobacco: Never AssessedSex and Gender InformationValueDate RecordedSex Assigned at BirthNot on fileLegal Sex Male07/07/2022 9:17 AM ESTGender IdentityNot on fileSexual OrientationNot on file Plan of Treatment Not on file
--- OUTSIDE RECORDS SUMMARY | 2025-08-04 21:50 | XMS_ITS | Encounter Summary ---
Author Organization [facility] Address [address] [place] [address] Care Team Providers Care Side Panel Padder Name Role Phone Susan Watson MD Primary Care Provider [phone] Reason for Referral * Imaging (Routine) - Pending ReviewSpecialtyDiagnoses / ProceduresReferred By ContactReferred To ContactCardiology Diagnoses Postoperative surgical complication involving circulatory system associated with cardiac catheterization, unspecified complication Procedures Lower extremity pseudoaneurysm duplex right Sarah Tolliver MD [address] [facility] [address] [facility] [place] [address] Phone: tel: fax: Referral IDStatusReasonStart DateExpiration DateVisits RequestedVisits [id number] Review Perform Procedure Encounter Details DateTypeDepartmentCare Team (Latest Contact Info)Cwvelkbpawi23/11/2025Orders Only [facility] at [facility] [address] [place] [address] Melody Cheung MA Postoperative surgical complication involving circulatory system associated with cardiac catheterization, unspecified complication (Primary Dx) Social History Tobacco UseTypesPacks/DayYears UsedDateSmoking Tobacco: FormerCigarettes2.525 1968 - 1993Smokeless Tobacco: CurrentChewAlcohol UseStandard Drinks/WeekComments Not Currently0 (1 standard drink = 0.6 oz pure alcohol)PHQ-2AnswerDate Recorded Patient Health Questionnaire-2 Mkdev55108/14/2024Humiliation, Afraid, Rape, and Kick questionnaireAnswerDate RecordedWithin the [...] week06/15/2025How often do you attend mandaen or episcopalian services?Never06/15/2025Do you belong to any clubs or organizations such as mandaen groups, unions, fraternal or athletic groups, or school groups?No06/15/2025How often do you attend meetings of the clubs or organizations you belong to?Never06/15/2025re you , , , , never , or living with a partner?Maigicbcm19/04/2025UDIT-C AnswerDate RecordedQ1: How often do you have [...] medical care, and heating?Not hard at all06/29/2025 [place] of Occupational Health - Occupational Stress Questionnaire AnswerDate RecordedDo you feel stress - tense, restless, nervous, or anxious, or unable to sleep at night because yourmind is troubled all the time - these days? Only a vmhfef9806/15/2025HC UtilitiesAnswerDate RecordedIn the past 12 months has the [employer], oil, or water [employer] threatened to shut off services in your [...] were you homeless or living in a fdc (including now)?No06/29/2025Hunger Vital SignAnswerDate Recorded Within the past 12 months, you worried that your food would run out before you got the money to buymore.Never true06/29/2025Within the past 12 months, the food you bought just didn't last and you didn't have money to get more.Never true 06/29/2025Sex and Gender InformationValueDate RecordedSex Assigned at BirthMale 04/08/2025 7:15 AM EDTLegal XnqMdbb6702/07/2022 10:15 PM EDTGender IdentityMale 04/08/2025 7:15 AM EDTSexual OrientationHeterosexual or Grzivpbc29/28/2025 7:15 AM EDTdocumented as of this encounter Plan of Treatment DateTypeDepartmentCare Team (Latest Contact Info)Yzvqiqgbcba21/12/2026 1:30 PM ESTHospital Encounter [facility] Main Operating Room [address] [place] [address] Chris Andre MD [address] [place] [address] 08/23/2025 1:30 PM EST - 08/23/2025 5:00 PM ESTSurgery [facility] Main Operating Room [address] [place] [address] Chris Andre MD [address] [place] [address] ENDARTERECTOMY, FEMORAL WITH POSSIBLE FEM TO POP ABPHNX8909/21/2025 11:00 AM EST Follow-Up [facility] Nephrology [address] [facility] [place] [address] Batsheva Beckwith MD [address] [facility] [address] [facility] [place] [address] 10/21/2025 1:00 PM EDTAppointment [facility] CT Imaging [address] [place] [address] NameTypePriorityAssociated DiagnosesOrder ScheduleLower extremity pseudoaneurysm duplex rightVascular UltrasoundRoutine Postoperative surgical complication involving circulatory system associated with cardiac catheterization, unspecified complication Expected: 07/22/2025 (Approximate), Expires: 07/22/2027NamePriorityAssociated DiagnosesDate/TimeENDARTERECTOMY, FEMORAL Peripheral arterial occlusive disease Encounter for pre-operative examination 08/23/2025 1:30 PM ESTdocumented as of this encounter Goals GoalPatient Goal TypeAssociated ProblemsRecent ProgressPatient-Stated?Author Blood Pressure < 140/90 Blood Zgrmjzsh150/68(07/22/2025 2:32 PM EST)Cy Child, JOHANAdocumented as of [...] Susan Watson MD [address] [place] [address] PCP - GeneralNurse Practitioner10/13/24documented as of this encounter
--- OUTSIDE RECORDS SUMMARY | 2025-08-04 21:50 | XMS_ITS | Clinical Summary ---
Author Organization [facility] Address [address] [place] [address] Care Team Providers Care Cargoman Name Role Phone Susan Watson MD Primary Care Provider Allergies No known active allergies Medications MedicationSigDispense QuantityRefillsLast FilledStart DateEnd DateStatus albuterol 90 mcg/actuation inhaler INHALE 1 PUFF BY MOUTH EVERY 4 HOURS LGWWOT4312/02/2021ctive aspirin 81 mg EC tablet Take 1 [...] mouth in the morning and at bedtime.Active oxmrfrjxpfn-hiqrxoucs-xpwjsioo (Trelegy Ellipta) 100-62.5-25 mcg blister with device [...] tablet /Expired Active Problems ProblemNoted DateDiagnosed DateMicroscopic znejpqvqa49/18/2025GI bleeding 07/19/20251433Erheyj08/18/2025hronic kidney disease, stage 3b06/29/2025Depression 06/29/20250760Mlqpvfrqiqwx33/18/2025Other nondisplaced fracture of upper end of left humerus, subsequent encounter for fracture with routine ereutuz9406/29/2025Sigmoid pvwjlmrczjenda06/18/2025Ventral elyclg7406/29/2025 Overview (06/29/2025): Problem List clean-up per request of Phys. EHR Cmte Qhmwwtcq61/18/2025AD (coronary artery disease) of artery bypass graft06/29/2025 Hypertensive chronic kidney disease with stage 1 through stage 4 chronic kidney disease, or unspecified chronic kidney yozcrfv3106/29/2025losed fracture of greater tuberosity of left gkcywjw9906/29/20257418Uhotjsotovuk39/18/2025Rectal nakwvwlp50/18/2025 Assessment & Plan (06/30/2025 2:16 PM EST): [...] EST): EF 40-45% currently is euvolemic Renal llvlqb4306/29/2025 Assessment & Plan (06/30/2025 2:16 PM EST): [...] on aspirin, Plavix, metoprolol, atorvastatin and fenofibrate Psyzabypvr55/04/2025Other specified symptoms and signs involving the circulatory and respiratory bibxuwm3406/14/2025S/P femoropopliteal bypass qlirdjd7506/14/2025 Assessment & Plan (06/30/2025 2:16 PM EST): - was on dual antiplatelet therapy plus Xarelto - vascular surgery following and recommending to continue plavix at this time Assessment & Plan (06/29/2025 3:05 AM EST): was on dual antiplatelet therapy plus Xarelto Consult vascular surgery for input regarding anticoagulation Encounter for pre-operative wgoirhcqrkh55/28/2025Peripheral arterial occlusive wqpjlki5206/07/2025Reduced ejection fraction concurrent with and due to acute heart ytyetcy8904/29/20251320Vamlihgqagph13/12/2025 Assessment & Plan (06/07/2025 2:40 PM EDT): Relevant Hx: Can walk only 10 steps prior to stopping due to pain Course: Previous stenting of the right SFA, continues to be symptomatic Today's Plan: OR today for right fem-pop bypass with graft, 2g Ancef given for surgical prophylaxis Lower extremity pain, pcgayfbvx99/31/2025 Assessment & Plan (06/07/2025 2:40 PM EDT): Plan same as below Chronic diastolic heart spuhrgk3703/01/2025Pulmonary ntruijlpithp53/21/2025 Cervical khetoevsisj46/10/2025Neck pain11/19/2024Frequent falls06/17/2024 Functional gait hiqpltyjgjz55/06/2024hronic obstructive pulmonary disease, izmamccuari24/31/2024 Assessment & Plan (06/30/2025 2:16 PM EST): [...] greater tuberosity of left humerus with routine zvwyeep3809/19/2023GAD (generalized anxiety disorder)09/19/2023H/O: lung cancer 09/19/2023Traumatic complete tear of left rotator cuff09/19/2023oronary artery disease involving [place] coronary artery of [place] heart without angina pectoris 09/19/2023 Assessment & [...] (mild cognitive impairment)2Recurrent major depression in partial ckewancyy51/01/2022Recurrent major depressive disorder, in full remission 04/12/2022Hypertensive ohmluufx37/17/2014 Assessment & Plan (06/30/2025 2:16 PM EST): - continue amlodipine, metoprolol - Blood pressure within acceptable range on 06/30 Assessment & Plan (06/29/2025 3:05 AM EST): continue amlodipine, metoprolol Abnormal results of cardiovascular function igezovg3209/30/2013 Overview (10/13/2024): MILD INFERIOR AND ANTERIOR ISCHEMIA EF 52% Chest pain09/18/2013Dyspnea and respiratory jjydlrmzvyvau36/07/2014 Overview (10/13/2024): 66 pk/yr history of smoking. Quit in 1994, when diagnosed with NSCLC and treated with RULobectomy and XRT. Also has extensive coronary disease, with CABG. Sees cardiology at [place]. Anxiety, HTN, CKD IIIb. PCP started albuterol [...] without BD response. Atherosclerosis of arteries of pwtobgeduyv09/14/2013Intermittent claudication 08/25/2012Peripheral vascular rksvpgm2708/25/2012 Assessment & Plan (06/30/2025 2:16 PM EST): - was on dual antiplatelet therapy plus Xarelto - vascular surgery following and recommending to continue plavix at this time Assessment & Plan (06/29/2025 3:05 AM EST): was on dual antiplatelet therapy plus Xarelto Consult vascular surgery for input regarding anticoagulation Gastroesophageal reflux disease without wsyelckfmef61/07/0362Czskybqm47/07/2012 Mixed zxqsqcfutgpbrg48/07/2012 Assessment & Plan (06/30/2025 2:16 PM EST): - continue atorvastatin and fenofibrate Assessment & Plan (06/29/2025 3:05 AM EST): continue atorvastatin and fenofibrate Coronary ajshrnqfocjinko52/07/2012Primary ajaayullevvh18/07/2012 Resolved Problems ProblemNoted DateDiagnosed DateResolved DateEncounter for pre-operative xqjktdpjivd10/12/890981/ Encounters DateTypeDepartmentCare HznjIylkqsmipfy81/18/2025Telephone [facility] Pulmonary [address] [place] [address] [place] [phone] Adrianne Reynolds MA 07/26/2025Orders Only [facility] Pulmonary [address] [facility] [place] [address] David Reid MD 07/26/2025Telephone [facility] [address] [facility]], [place] [phone] Melody Cheung MA 07/22/2025 2:30 PM ESTConsult [facility] Pulmonary [address] [place] [address] Robert Brock MD Hemoptysis (Primary Dx); Bleeding from the nose; S/P femoropopliteal bypass surgery; Coronary artery disease involving coronary bypass graft of [place] heart without angina pectoris; H/O: lung kawpcu4507/22/2025 9:[address]-Up [facility] [address] [facility]], [place] [address] Sarah Tolliver MD Dyspnea, unspecified type (Primary Dx); Chronic obstructive pulmonary disease, unspecified COPD type (CMS/HCC); PAD (peripheral artery disease); Chronic kidney disease, stage 4 (severe) (CMS/HCC); Reduced ejection fraction concurrent with and due to acute heart failure (CMS/HCC); Post-operative pain07/22/2025 12:05 AM EST - 07/22/2025 11:59 PM ESTHospital Encounter [facility] Radiology External Films [address] [place] [phone] Discharge Disposition: Home or Self Care ()07/22/2025 - 07/22/2025 12:04 AM ESTHospital Encounter [facility] Radiology External Films [address] [place] [address] Discharge Disposition: Home or Self Care ()07/22/2025Orders Only [facility] [address] [facility]], [place] [address] Melody Cheung MA Postoperative surgical complication involving circulatory system associated with cardiac catheterization, unspecified complication (Primary Dx)07/20/2025bstract [facility] WOUND CARE CLINIC [address] [place] [address] Mala Cooper NP 07/16/2025Telephone [facility] Cardiology Clinic [address] [facility] [facility] [place] [address] Sarah Tolliver MD 07/16/2025Telephone [facility] [place] [facility] [address] [place] [address] Peace Gong MA Request for Return Call07/06/2025 1:00 PM ESTFollow-Up [facility] [address] [place] [phone] Batsheva Beckwith MD Chronic kidney disease, stage 3b (CMS/HCC) (Primary Dx); Electrolyte imbalance; Anemia due to stage 3b chronic kidney disease ([facility]/HCC); Essential hypertension; HFrEF (heart failure with reduced ejection fraction) ([facility]/HCC); Peripheral arterial occlusive disease; Kidney disease, chronic, stage IV (GFR 15-29 ml/min) ([facility]/HCC); Lxkcyseierew77/24/2025 2:35 PM ESTLab [facility] Outpatient Draw Station [address] [place] [address] Lower GI bleed07/05/2025 2:15 PM ESTFollow-Up [facility] Heart [facility] Vascular [place] V[facility] and Endovascular Surgery [address] [place] [address] Nadia Sheppard PA-C Postoperative wound dehiscence, subsequent encounter (Primary Dx); PAOD (peripheral arterial occlusive disease)07/02/2025Telephone [facility] H[facility]U [address] [place] [address] Brianne Morales, JOHANA Hospital Follow-up07/02/2025Telephone [facility] Heart at [facility] [address] [place] [address] Elza Butt MA 07/01/2025 1:44 PM ESTAnesthesia [facility] Center Endoscopy [address] [place] [address] Melody Cortes MD Kwak, Eun Seo, MD 07/01/20252417Aenohi19/19/2025 2:08 PM ESTAnesthesia Event [facility] Invasive Surgery Center Endoscopy [address] [place] [address] Melody Cortes MD Stimes, Nicholas, MD 06/30/20250695Tmivmz91/17/2025 5:59 PM EST - 07/01/2025 6:53 PM ESTHospital Encounter [facility] H[facility] [address] [place] [address] Cleopatra Curiel MD Horani, Omar, MD Chang, Kyu Chul, MD Lower GI bleed (Primary Dx); Diverticular hemorrhage; Metabolic acidosis Discharge Disposition: Home or Self Care ()06/28/20251936Qqydrn84/17/2025Orders Only [facility] at [facility] Infectious [facility] [address] [facility], [address] [place] [address] Carolyn Romo MA 06/28/2025Results Follow-Up [facility] at [facility] [address] [facility], [address] [place] [address] Carolyn Romo MA Basic metabolic panel, Magnesium, Phosphorus, CBC06/26/2025 1:20 PM EST - 06/26/2025 8:38 PM ESTEmergency [facility] Emergency [address] [place] [address] Brayan Gutierrez MD Dislocation of finger, initial encounter (Primary Dx); Peripheral arterial disease; Fall, initial encounter Discharge Disposition: Home or Self Care ()06/26/20251356Ndphca46/14/2025 3:05 PM ESTLab [facility] Outpatient Draw Station [address] [place] [address] Chronic kidney disease, unspecified CKD stage; Peripheral arterial occlusive disease; Encounter for pre-operative nitspxgrzox74/14/2025 2:00 PM ESTFollow-Up [facility] Vascular and Endovascular Surgery [address] [place] [address] Nadia Sheppard PA-C Postoperative wound dehiscence, subsequent encounter (Primary Dx); PAOD (peripheral arterial occlusive disease); Dehiscence of operative wound, subsequent uxzqgjhdl19/10/2025Orders Only [facility] Pre-Anesthesia Clinic [address] [place] [phone] Chasity Bryant, JOHANA 06/15/2025 6:56 PM EST - 06/19/2025 6:55 PM ESTHospital Encounter [facility] 4CD [address] [place] [address] Damaris Gee PA-C Nazzal, Munier, MD Cellulitis (Primary Dx); Wound infection after surgery Discharge Disposition: Home or Self Care ()06/15/20250976Hnjhwu22/03/2025 2:00 PM ESTFollow-Up [facility] Vascular and Endovascular Surgery [address] [place] [address] Mala Cooper NP Other specified symptoms and signs involving the circulatory and respiratory systems (Primary Dx); Claudication; S/P femoropopliteal bypass yuuowaz9606/12/2025 1:37 AM EDT - 06/12/2025 2:29 AM EDTEmergency [facility] Emergency [address] [place] [phone] Karan Fuller MD Encounter for postoperative wound check (Primary Dx) Discharge Disposition: Home or Self Care ()06/12/20259499Nfkzba14/28/2025Orders Only [facility] Vascular and Endovascular Surgery [address] [place] [address] Jessica Fatima MA Peripheral arterial occlusive disease (Primary Dx); Encounter for pre-operative gqzvwsixxsn96/28/2025Orders Only [facility] at [facility] [address]ph[address] [place] [address] Carolyn Romo MA 06/07/2025 2:51 PM EDTAnesthesia Event [facility] Main Operating Room [address] [place] [phone] Trang Chen MD Meisler, Adam, MD 06/07/2025 11:00 AM EDT - 06/07/2025 2:00 PM EDTSurgery [facility] Main Operating Room [address] [place] [address] Chris Andre MD Right Femoral- Popliteal Bypass with 8mm Propaten Graft above the knee [12956 (CPT??)]06/07/2025 9:26 AM EDT - 06/09/2025 7:30 PM EDTHospital Encounter [facility] 4AB Urology [address] [place] [phone] Chris Andre MD Peripheral arterial occlusive disease (Primary Dx); Lower extremity pain, bilateral; Severe claudication; Encounter for pre-operative examination; Lower limb ischemia; Atherosclerosis of arteries of extremities Discharge Disposition: Home or Self Care (01)06/07/20250932Ygdpij74/24/2025Telephone [facility] at [address] [phone] Batsheva Beckwith MD 06/02/2025Results Follow-Up [facility] [address] [address] Carolyn Romo MA Basic metabolic panel05/31/2025 11:55 AM EDTLab [facility] Outpatient Draw Station [address] [place] [address] Ejhlcemhpcnb32/16/2025Results Follow-Up [facility] at [address] [phone] Batsheva Beckwith MD Urinalysis with microscopic, Microalbumin, urine, random, Creatinine, urine, random, Additional followed-up results: 2:55 PM EDTLab [facility] Outpatient Draw Station [address] [place] [phone] Kidney disease, chronic, stage IV (GFR 15-29 ml/min) (CMS/HCC); Essential hypertension; Qkzbcjffzwaj54/15/2025 1:00 PM EDTOffice Visit [facility] [address] [facility] [place] [address] Batsheva Beckwith MD Kidney disease, chronic, stage IV (GFR 15-29 ml/min) ([facility]/HCC) (Primary Dx); Essential hypertension; Hyperkalemia; HFrEF (heart failure with reduced ejection fraction) ([facility]); Peripheral arterial uithvoi1605/25/2025Telephone [facility] Pre-Anesthesia Clinic [address] [place] [address] [place] [phone] Christopher Gongora, MÓNICA 05/24/2025 2:35 PM EDTLab [facility] Medical Pavilion Draw Station [address] [place] [address] [place] [phone] Lower extremity pain, bilateral; Severe claudication; Encounter for pre-operative xnjmftfakty41/13/2025 1:30 PM EDTPre-Admission Testing [facility] Pre-Anesthesia Clinic [address] [place] [address] [place] [phone] 05/24/20251057Lqlsla97/06/2025Telephone [facility] [address] [facility] [place] [address] Batsheva Beckwith MD 05/14/2025bstract [facility] AUTHORIZATION DEPARTMENT [address] [place] [phone] Chris Andre MD 05/11/2025 10:30 AM EDT - 05/11/2025 11:30 AM EDTSurgery [facility] Heart and Vascular Center Vascular Lab [address] [place] [address] Sarah Tolliver MD Coronary gxqmwvlehkv89/30/2025 7:13 AM EDT - 05/11/2025 6:03 PM EDTHospital Encounter [facility] Heart and Vascular Center Vascular Lab [address] [place] [address] Sarah Tolliver MD Reduced ejection fraction concurrent with and due to acute heart failure (CMS/HCC) Discharge Disposition: Home or Self Care ()05/11/2025Travelfrom Last 3 Months Immunizations ImmunizationAdministration DatesNext DueInfluenza, High Dose Seasonal, Preservative Free06/19/2025Influenza, High-dose Seasonal, Quadrivalent, Preservative Free05/23/2021,08/03/2020Pneumococcal Conjugate PCV 13008/27/2019 Pneumococcal Polysaccharide VJY089210/04/2019 Family History Medical HistoryRelationNameCommentsDiabetesMotherMarionRelationNameStatus CommentsMotherMarion Social History Tobacco UseTypesPacks/DayYears UsedDateSmoking Tobacco: FormerCigarettes2.525 1968 - 1993Smokeless Tobacco: CurrentChewAlcohol UseStandard Drinks/WeekComments Not Currently0 (1 standard drink = 0.6 oz pure alcohol)PHQ-2AnswerDate Recorded Patient Health Questionnaire-2 Qnzxs84408/14/2024Humiliation, Afraid, Rape, and Kick questionnaireAnswerDate RecordedWithin the [...] times a week06/15/2025How often do you attend restoration or restorationism services?Never06/15/2025Do you belong to any clubs or organizations such as restoration groups, unions, fraternal or athletic groups, or school groups?No06/15/2025How often do you attend meetings of the clubs or organizations you belong to?Never06/15/2025re you , , , , never , or living with a partner?Wgmjxnrdc46/04/2025UDIT-C AnswerDate RecordedQ1: How often do you have [...] heating?Not hard at all06/29/2025 [facility] [place] of Occupational Health - Occupational Stress Questionnaire AnswerDate RecordedDo you feel stress - tense, restless, nervous, or anxious, or unable to sleep at night because yourmind is troubled all the time - these days? Only a bvkckz4906/15/2025HC UtilitiesAnswerDate RecordedIn the past 12 months has the [employer], gas, oil, or water [employer] threatened to shut off services in [...] Assigned at BirthMale 04/08/2025 7:15 AM EDTLegal WweZnzy1402/07/2022 10:15 PM EDTGender IdentityMale 04/08/2025 7:15 AM EDTSexual OrientationHeterosexual or Sjriwiws73/28/2025 7:15 AM EDT Last Filed Vital Signs Vital SignReadingTime TakenCommentsBlood Fvwnycfl649/6807/22/2025 2:32 PM EST Oxeec423607/22/2025 2:26 PM SQTYbmqyihvcky11.9 ??C (96.6 ??F)07/01/2025 4:16 PM ESTRespiratory Udzq995409/04/2024 2:07 PM ESTOxygen Ufdpkyoruk89%07/22/2025 2:26 PM ESTroom air at restInhaled Oxygen Concentration--Lpixte48.3 kg (155 lb) 07/22/2025 2:26 PM WQAMyeraq253.1 cm (5' 5 )07/22/2025 2:26 PM ESTBody Mass Index25.7907/22/2025 2:26 PM EST Plan of Treatment DateTypeDepartmentCare Team (Latest Contact Info)Cimyesoksyy89/12/2026 1:30 PM ESTHospital Encounter [facility] Main Operating Room [address] [place] [address] Chris Andre MD [address] [place] [address] 08/23/2025 1:30 PM EST - 08/23/2025 5:00 PM ESTSurgery [facility] Main Operating Room [address] [place] [address] Chris Andre MD [address] [place] [address] ENDARTERECTOMY, FEMORAL WITH POSSIBLE FEM TO POP LUGJKY7809/21/2025 11:00 AM EST Follow-Up [facility] at [facility] Nephrology [address] [facility] [place] [address] Batsheva Beckwith MD [address] [facility] [address] [facility] [place] [phone] 10/21/2025 1:00 PM EDTAppointment [facility] CT Imaging [address] [place] [address] NamePriorityAssociated DiagnosesDate/TimeENDARTERECTOMY, FEMORAL Peripheral arterial occlusive disease Encounter for pre-operative examination 08/23/2025 1:30 PM ESTHealth MaintenanceDue DateLast DoneCommentsCT Colonography 1953FIT-DNA1953FIT1953Medicare Annual Wellness (AWV)1955 Hvcucavssgwxp1953dult Anlqyfq5404/28/1975Zoster Vaccines (1 of 2)2003 COVID-19 Vaccine ( season), 11/08/2020, 10/19/2020epression Hgrhstojd78/10/20243645XAEQ92Fall Risk Roulaowvr74/3987Xalincjelrk99/20/203511/, 06/30/2025, 1Colorectal Cancer Nghvcowyc28/20/2035Pneumococcal Vaccine: 50+ Years Fvjujserg30/23/2020, 08/27/2019Influenza FvrfrgeXwhcftpfu60/08/2025, 05/23/2021, 08/03/2020HIB VaccinesAged OutNo longer eligible based [...] ProblemsRecent ProgressPatient-Stated?Author Blood Pressure < 140/90 Blood Shuoyxtg617/68(07/22/2025 2:32 PM EST)Cy Child RN Medical Devices ImplantedTypeAreaManufacturerDevice IdentifierShelf Expiration DateModel / Serial / LotGraft,Thin-Wall,8x80cm,70cm - [id number] - [id number] Implanted:Qty: 1 on 06/07/2025 by Chris Andre [facility]agen[facility]: Desirae [id number] / [id number] / N/A Procedures Procedure NamePriorityDate/TimeAssociated DiagnosisCommentsXR TRANSFER OF OUTSIDE UVFSZHzaubuz42/11/2025 12:[address] TRANSFER OF OUTSIDE ACQKFBmbtrbz19/11/2025 12:00 AM EST REIIyzebjh25/24/2025 1:47 PM EST Lower GI bleed BASIC METABOLIC CMSNWBazpruj73/24/2025 1:47 PM EST Lower GI bleed BASIC METABOLIC CDQDWTQXY77/20/2025 4:17 PM EST DIAGNOSTIC GHMLHNRLSDQSrypouy30/20/2025 2:36 PM EST BLOOD GAS, VENOUSPending Bcbaguqka89/20/2025 11:28 AM EST POCT GLUCOSE METER UNSOLICITED JBXREYKJijamoh04/20/2025 9:23 AM EST HEMOGLOBIN AND HEMATOCRIT, BLOODPending Wwtuimzpn96/20/2025 6:51 AM EST BASIC METABOLIC PANELSTAT Add-on07/01/2025 6:00 AM EST LIGHT GREEN KNNVenrojt41/20/2025 6:00 AM EST EXTRA FKANCNieimut96/20/2025 6:00 AM EST POCT GLUCOSE METER UNSOLICITED OICQRXNRrztsso07/19/2025 8:10 PM EST POCT GLUCOSE METER UNSOLICITED CFSEMBTXbohldo38/19/2025 4:08 PM EST POCT GLUCOSE METER UNSOLICITED ZYTZGQCWwpcxrf53/19/2025 3:46 PM EST POCT GLUCOSE METER UNSOLICITED YALWNQZOepvlkz56/19/2025 3:24 PM EST POCT GLUCOSE METER UNSOLICITED NRMGDSAQxoetdb77/19/2025 3:01 PM EST DIAGNOSTIC QQNJSRNXYEAXemptuk47/19/2025 2:25 PM EST POCT GLUCOSE METER UNSOLICITED GHULGLCAysyffp10/19/2025 1:23 PM EST FNBKQJMAEVDGOP29/18/2025 11:10 PM EST ZOSKMGWZNLECCY03/18/2025 5:47 PM EST HEMOGLOBIN AND HEMATOCRIT, UGUHEDQAG36/18/2025 9:18 AM EST TRANSFUSE RED BLOOD CPNVTDysizhc95/18/2025 5:50 AM ESTCBC WITH AUTO DIFFERENTIAL STAT108/29/2024 5:45 AM EST CBC AND VNWIEUHWGBBGCpmylak19/18/2025 5:45 AM EST COMPREHENSIVE METABOLIC BRVPUYldsqjw46/18/2025 5:45 AM EST TRANSFUSE RED BLOOD LVQAHLyqbzky77/18/2025 3:00 AM ESTPREPARE RBCRoutine 06/29/2025 1:40 AM EST TYPE AND UMAXOZFJAD84/18/2025 12:33 AM EST HEMOGLOBIN AND HEMATOCRIT, OCRALOLIL29/18/2025 12:33 AM EST CTA ABDOMEN PELVIS W IV EALMVXXITKUH89/17/2025 9:14 PM EST POCT OCCULT BLOOD YKGVLHITE91/17/2025 7:15 PM EST CBC WITH AUTO OEAAPFJLMJHUBIWE17/17/2025 6:39 PM EST COMPREHENSIVE METABOLIC UGVQUTFRR07/17/2025 6:39 PM EST CBC AND EDUPMBEVJNZMIVTI67/17/2025 6:39 PM EST HIGH SENSITIVITY TROPONIN ISTAT108/26/2024 4:40 PM EST CTA AORTA AND BILATERAL ILIOFEMORAL RUNOFF W IV PLLIGVEKGCND13/15/2025 4:[address] CERVICAL SPINE WO IV HVWICYPAUOES94/15/2025 4:[address] HEAD WO IV QQRHJLGSGQLZ59/15/2025 4:39 PM EST XR HAND 3+ VIEWS MHBHHVJK16/15/2025 3:45 PM EST CBC WITH AUTO YGCOVJUHSLEVREUU20/15/2025 2:45 PM EST CK TOTAL AND CKMBSTAT Add-on06/26/2025 2:45 PM EST NTZQQHIG80/15/2025 2:45 PM EST PROTIME-SDHRCRG4906/26/2025 2:45 PM EST HIGH SENSITIVITY TROPONIN ISTAT11/ 2:45 PM EST COMPREHENSIVE METABOLIC RDEERGOQA87/15/2025 2:45 PM EST CBC AND FIPDHDMZXNOZMRUG05/15/2025 2:45 PM EST XR CHEST 1 ZOPDUMQZ89/15/2025 2:20 PM EST XR PELVIS 1-2 KUUYDSNPU98/15/2025 2:20 PM EST XR HAND 3+ VIEWS EYAAHXSE48/15/2025 2:03 PM EST PROTIME-LYJNlmlocj17/14/2025 3:29 PM EST Peripheral arterial occlusive disease Encounter for pre-operative examination VMOMGwhwfun14/14/2025 3:29 PM EST Peripheral arterial occlusive disease Encounter for pre-operative examination AYBFvaqcbp74/14/2025 3:29 PM EST Chronic kidney disease, unspecified CKD stage GVIHSOXMUOApyfvvm05/14/2025 3:29 PM EST Chronic kidney disease, unspecified CKD stage EZMHTMNDGBozsyub66/14/2025 3:29 PM EST Chronic kidney disease, unspecified CKD stage BASIC METABOLIC NJJIVLqixhvf19/14/2025 3:29 PM EST Chronic kidney disease, unspecified CKD stage MAGNESIUMPending Ctawcaxxp35/08/2025 4:47 AM EST POCT GLUCOSE METER UNSOLICITED UNFYVGUSellnvi26/07/2025 10:12 PM EST MAGNESIUMPending Oxdohetde26/07/2025 5:07 AM EST BASIC METABOLIC PANELPending Ropjbekbk18/07/2025 5:07 AM EST CBCPending Cwiqmlnlj14/07/2025 5:07 AM EST VANCOMYCIN TIMEDPending Cmmtekxbd84/06/2025 4:31 AM EST MAGNESIUMPending Xrwofwugk67/06/2025 4:31 AM EST BASIC METABOLIC PANELPending Wqezblols65/06/2025 4:31 AM EST CBCPending Pkvraigoz61/06/2025 4:31 AM EST VANCOMYCIN QYVXMEpwdw81/05/2025 9:11 PM EST XPOYBCBXNKytqpep52/05/2025 5:08 AM EST BASIC METABOLIC NOXJFJfxjzzm11/05/2025 5:08 AM EST LPELzqmbed91/05/2025 5:[address] HEAD WO IV TGZSWOAIANDI16/04/2025 7:57 PM EST CBC WITH AUTO OPUHQPKJLMEYXRYR45/04/2025 7:37 PM EST LACTIC ACID WITH 4 HOUR NIPQHPPASP94/04/2025 7:37 PM EST BASIC METABOLIC GOXDKLPTA04/04/2025 7:37 PM EST CBC AND HFMTSZQTJSXZSOZK03/04/2025 7:37 PM EST BLOOD QDMULXAULOF49/04/2025 7:37 PM EST BLOOD TSHCYTRYNTV17/04/2025 7:37 PM EST WOUND DBIXFKPBCOJ03/04/2025 5:59 PM EST PREPARE HMXAyuvprl16/30/2025 7:53 AM EDT VASC US LOWER EXTREMITY ARTERIAL DUPLEX BYPASS GRAFT LLKZKEgyummz73/29/2025 9:51 AM EDT LIGHT GREEN UWQKxpakes26/29/2025 3:56 AM EDT EXTRA JBQJKRstczgb93/29/2025 3:56 AM EDT CBCPending Xegafmekm05/29/2025 3:56 AM EDT BIJLvlduwb44/28/2025 4:11 AM EDT KXWUWOVWHUNacybzb57/28/2025 4:11 AM EDT LWYWQWQADOjbullm39/28/2025 4:11 AM EDT BASIC METABOLIC ZGYIHWdbxwdb79/28/2025 4:11 AM EDT LSNOLCUJKCQJXD33/27/2025 8:18 PM EDT NDUAZYUNXXXVW13/27/2025 8:18 PM EDT BASIC METABOLIC MCRUQQYXJ74/27/2025 8:18 PM EDT BIMVSNG4806/07/2025 8:18 PM EDT INVASIVE VASCULAR EFTOYHLLYFdawntb90/27/2025 6:16 PM EDT Lower extremity pain, bilateral Severe claudication Encounter for pre-operative examination POCT ACTIVATED CLOTTING TIME UNSOLICITED TJTYRCOUixoxjo49/27/2025 5:44 PM EDT HISTOLOGY - TISSUE PIAQEofwjcw56/27/2025 5:44 PM EDT Lower extremity pain, bilateral Severe claudication Encounter for pre-operative examination ABG COMPLETE UNSOLICITED QUSBDTUWkmvrfy65/27/2025 5:43 PM EDT CO AN ELECTIVE ENDOTRACHEAL KODTESUlcicoj94/27/2025 3:09 PM EDT ENDARTERECTOMY, FPUQJQH5106/07/2025 2:51 PM EDT Lower extremity pain, bilateral Severe claudication Encounter for pre-operative examination CO BYPASS W/VEIN FEMORAL-FFXSPRMNX38/27/2025 2:51 PM EDT Lower extremity pain, bilateral Severe claudication Encounter for pre-operative examination ANESTHESIA ARTERIAL LINE OMOKWTRALVkgbtmw91/27/2025 12:38 PM EDT POCT GLUCOSE METER UNSOLICITED VIBXURPTcwcryt52/27/2025 9:57 AM EDT BASIC METABOLIC QJRESQxkuoin25/20/2025 11:59 AM EDT Hyperkalemia PTH, MUYNREIaykdyb19/15/2025 2:54 PM EDT Kidney disease, chronic, stage IV (GFR 15-29 ml/min) ([facility]) Essential hypertension Hyperkalemia VITAMIN D 25 FQTQGNBQpcmutd35/15/2025 2:54 PM EDT Kidney disease, chronic, stage IV (GFR 15-29 ml/min) ([facility]) Essential hypertension Hyperkalemia CCLJAGWAOCJkjagvg22/15/2025 2:54 PM EDT Kidney disease, chronic, stage IV (GFR 15-29 ml/min) ([facility]) Essential hypertension Hyperkalemia BGEZREWWRYlwlogs08/15/2025 2:54 PM EDT Kidney disease, chronic, stage IV (GFR 15-29 ml/min) ([facility]) Essential hypertension Hyperkalemia HVNOlazowa98/15/2025 2:54 PM EDT Kidney disease, chronic, stage IV (GFR 15-29 ml/min) ([facility]) Essential hypertension Hyperkalemia BASIC METABOLIC EIABWXrrjnhs56/15/2025 2:54 PM EDT Kidney disease, chronic, stage IV (GFR 15-29 ml/min) ([facility]) Essential hypertension Hyperkalemia CREATININE, URINE, KKXJWHZyaecdx42/15/2025 2:54 PM EDT Kidney disease, chronic, stage IV (GFR 15-29 ml/min) ([facility]) Essential hypertension Hyperkalemia MICROALBUMIN, URINE, RNBDORHyrneoy80/15/2025 2:54 PM EDT Kidney disease, chronic, stage IV (GFR 15-29 ml/min) ([facility]) Essential hypertension Hyperkalemia URINALYSIS WITH KIOJAEJKAKJXhehrdn34/15/2025 2:54 PM EDT Kidney disease, chronic, stage IV (GFR 15-29 ml/min) ([facility]) Essential hypertension Hyperkalemia PREPARE IKTWSTM42/13/2025 4:02 PM EDT TYPE AND FEAPDKPkdgpkn46/13/2025 2:48 PM EDT Severe claudication Encounter for pre-operative examination XZLMZbkmqhu16/13/2025 2:48 PM EDT Lower extremity pain, bilateral Severe claudication Encounter for pre-operative examination PROTIME-CJHIkjbhrf84/13/2025 2:48 PM EDT Lower extremity pain, bilateral Severe claudication Encounter for pre-operative examination BASIC METABOLIC WCKSHBonxbww72/13/2025 2:48 PM EDT Lower extremity pain, bilateral Severe claudication Encounter for pre-operative examination HEYGskaaca68/13/2025 2:48 PM EDT Lower extremity pain, bilateral Severe claudication Encounter for pre-operative examination MRSA/MSSA DNA JNATZRqhkicz17/13/2025 2:48 PM EDT Lower extremity pain, bilateral Severe claudication Encounter for pre-operative examination CORONARY BYPASS GRAFT QVQUVXntkyqx96/30/2025 12:47 PM EDT Reduced ejection fraction concurrent with and due to acute heart failure (CMS/HCC) CORONARY DAKAAUNAGZIQqfrktv21/30/2025 12:47 PM EDT Reduced ejection fraction concurrent with and due to acute heart failure (CMS/HCC) ECG 12-OVJDIloyjal31/30/2025 8:08 AM EDT from Last 3 Months [...] Auto WBC4.414.00 - 10.60 10*3/uL07/05/2025 2:05 PM [facility] ([facility]) RBC3.46(L)4.20 - 5.70 10*6/uL07/05/2025 2:05 PM [facility] ([facility]) Btvynoogia69.1(L)13.0 - 17.0 g/dL07/05/2025 2:05 PM [facility] ([facility])Uovcmgmffc46.3(L)39.0 - 50.0 %07/05/2025 2:05 PM [facility] ([facility])MCV93.482.0 - 98.0 fL07/05/2025 2:05 PM [facility] ([facility]) MCH29.227.0 - 33.0 pg07/05/2025 2:05 PM [facility] ([facility])MCHC31.3(L) 32.0 - 35.0 g/dL07/05/2025 2:05 PM [facility] ([facility])RDW15.1(H)11.5 - 15.0 %07/05/2025 2:05 PM [facility] ([facility])Hpapdvnnt129(L)150 - 400 10*3/uL07/05/2025 2:05 PM [facility] ([facility])Specimen (Source) Anatomical Location / LateralityCollection Method / VolumeCollection Time Received TimeBloodVenous blood specimen / UnknownVenipuncture / Unknown 07/05/2025 1:47 PM EST07/05/2025 1:54 PM EST Narrative Authorizing ProviderResult TypeResult StatusKyu Sammy Newsome MDLAB BLOOD ORDERABLESFinal ResultPerforming OrganizationAddressCity/State/ZIP CodePhone Number [facility] ([facility]) [address] [place] [address] * (ABNORMAL) Basic metabolic panel (07/05/2025 1:47 PM EST) Only the most recent of13 resultswithin the time period is included. ComponentValueRef RangeTest MethodAnalysis TimePerformed AtPathologist Signature Siweec317195 - 145 mmol/L109/04/2024 2:18 PM [facility] ([facility]) Potassium4.83.5 - 5.1 mmol/L109/04/2024 2:18 PM [facility] ([facility]) Hsdbqhmu045(H)98 - 107 mmol/L109/04/2024 2:18 PM [facility] ([facility])CO2 2421 - 31 mmol/L109/04/2024 2:18 PM [facility] ([facility])XYN819 - 25 mg/dL07/05/2025 2:18 PM [facility] ([facility])Creatinine1.45(H)0.70 - 1.30 mg/dL07/05/2025 2:18 PM [facility] ([facility])Zbsisja6964 - 100 mg/dL07/05/2025 2:18 PM [facility] ([facility])Calcium8.68.6 - 10.3 mg/dL 07/05/2025 2:18 PM [facility] ([facility])Anion Gap97 - 20 mmol/L 07/05/2025 2:18 PM [facility] ([facility])eGFR51.2(L)>60.0 mL/min/1.73m*2 07/05/2025 2:18 PM [facility] ([facility])Comment:[facility]???s estimated glomerular filtration rate (eGFR) [...] group of individuals. BUN/Creatinine Ratio15. 2:18 PM [facility] ([facility])Specimen (Source)Anatomical Location / LateralityCollection Method / VolumeCollection TimeReceived TimeBloodVenous blood specimen / UnknownVenipuncture / Unknown 07/05/2025 1:47 PM EST07/05/2025 1:53 PM EST Narrative Authorizing ProviderResult TypeResult StatusFrench Newsome [facility] BLOOD ORDERABLESFinal ResultPerforming OrganizationAddressCity/State/ZIP CodePhone Number [facility] ([facility]) [address] [place] [address] * Diagnostic Colonoscopy (07/01/2025 2:36 PM EST)Anatomical [...] on 07/01/25 Attending Physician: ??Christie Horton MD Power Screwdriver Operator: ??Maria Eugenia Dodd MD Procedure Details Informed [...] AtPathologist SignaturepH, Ven7.28(L)7.31 - 7.41108/31/2024 11:42 AM [facility] RESPIRATORY THERAPYpCO2, Fkp2008 - 50 mmHg 07/01/2025 11:42 AM [facility] RESPIRATORY THERAPYpO2, Ven26(L)35 - 45 mmHg 07/01/2025 11:42 AM [facility] RESPIRATORY THERAPYO2 Sat, Ven34.0(LL)65.0 - 75.0 %07/01/2025 11:42 AM [facility] RESPIRATORY THERAPYHCO3, Zjswbd04.2mmol/L 07/01/2025 11:42 AM [facility] RESPIRATORY THERAPYOxyhemoglobin, Iurmtm74.3% 07/01/2025 11:42 AM [facility] RESPIRATORY THERAPYpH Venous Temp Adjusted7.28(L) 7.31 - 7.41108/31/2024 11:42 AM [facility] RESPIRATORY THERAPYpCO2 Venous Temp Qbsqdsbj7033 - 50 mmHg07/01/2025 11:42 AM [facility] RESPIRATORY THERAPYpO2 Venous Temp Mjsroctv55(L)35 - 45 mmHg07/01/2025 11:42 AM [facility] RESPIRATORY BTMPIEJAbiqtxerdev39.0??07/01/2025 11:42 AM [facility] RESPIRATORY THERAPY Specimen (Source)Anatomical Location / LateralityCollection Method / Volume Collection TimeReceived TimeBloodVenous blood specimen / UnknownVenipuncture / Iwrnymr8707/01/2025 11:28 AM EST07/01/2025 11:38 AM EST Narrative Authorizing ProviderResult TypeResult StatusFrench CEE BLOOD ORDERABLESFinal ResultPerforming OrganizationAddressCity/State/ZIP CodePhone Number [facility] RESPIR[facility] THERAPY [address] [place] [address], * POCT glucose meter (07/01/2025 9:23 AM EST) Only the most recent of9 resultswithin the time period is included. ComponentValueRef RangeTest MethodAnalysis TimePerformed AtPathologist Signature Glucose CAH8282 - 105 mg/dL07/01/2025 9:34 AM [facility] ([facility]) Comment:jdlugolSpecimen (Source)Anatomical Location / LateralityCollection Method / VolumeCollection TimeReceived TimeBloodCapillary blood specimen / Rygfkdj3207/01/2025 9:23 AM EST07/01/2025 9:34 AM EST Narrative [facility]) - 07/01/2025 9:34 AM EST Waived Testing in the ED is performed under the ED CLIA certificate #[id number]. Authorizing ProviderResult TypeResult StatusFrench CEE BLOOD ORDERABLESFinal ResultPerforming OrganizationAddressCity/State/ZIP CodePhone Number [facility] ([facility]) [address] [place] [address] * (ABNORMAL) Hemoglobin and hematocrit, blood (07/01/2025 6:51 AM EST) Only the most recent of3 resultswithin the time period is included. ComponentValueRef RangeTest MethodAnalysis TimePerformed AtPathologist Signature Dpgsxyyqsl22.3(L)13.0 - 17.0 g/dL07/01/2025 7:16 AM [facility])Hlisuavgtq91.8(L)39.0 - 50.0 %07/01/2025 7:16 AM [facility])Specimen (Source)Anatomical Location / LateralityCollection Method / VolumeCollection TimeReceived TimeBloodVenous blood specimen / Unknown Venipuncture / Mlkcszw5007/01/2025 6:51 AM EST07/01/2025 6:56 AM EST Narrative Authorizing ProviderResult TypeResult StatusChris CEE BLOOD ORDERABLES Final ResultPerforming OrganizationAddressCity/State/ZIP CodePhone Number [facility]) [address] [place] [address] * Light Green Top (07/01/2025 6:00 AM EST) Only the most recent of2 resultswithin the time period is included. ComponentValueRef RangeTest MethodAnalysis TimePerformed AtPathologist Signature Extra TubeHold for add-ons.07/01/2025 8:01 AM [facility] ([place]) Comment:Auto resulted.Specimen (Source)Anatomical Location / Laterality Collection Method / VolumeCollection TimeReceived TimeBloodVenous blood specimen / Kvebuxx6907/01/2025 6:00 AM EST07/01/2025 6:57 AM EST Narrative Authorizing ProviderResult TypeResult StatusKydiana Newsome MDKE[facility] BLOOD ORDERABLESFinal ResultPerforming OrganizationAddressCity/State/ZIP CodePhone Number [facility] ([place]) [address] [place] [address] * Diagnostic Colonoscopy (06/30/2025 2:25 PM EST)Anatomical [...] on 06/30/25 Attending Physician: ??Kortney Gandhi MD Power Screwdriver Operator: ??None Procedure Details Informed consent was obtained [...] included. ComponentValueRef RangeTest MethodAnalysis TimePerformed AtPathologist Signature Uhtbvjoyxl87.5(L)13.0 - 17.0 g/dL06/30/2025 12:47 AM [facility] ([facility])Specimen (Source)Anatomical Location / LateralityCollection Method / VolumeCollection TimeReceived TimeBloodVenous blood specimen / Unknown Venipuncture / Afknncz8106/29/2025 11:10 PM EST06/30/2025 12:13 AM EST Narrative Authorizing ProviderResult TypeResult StatusGerman CEE BLOOD ORDERABLES Final ResultPerforming OrganizationAddressCity/State/ZIP CodePhone Number [facility] ([place]) [address] [place] [address] * Transfuse RBC (06/29/2025 8:09 AM EST) Only the most recent of2 resultswithin the time period is included. Narrative Authorizing ProviderResult TypeResult StatusObi VELAOOD TRANSFUSION ORDERABLESFinal Result * (ABNORMAL) CBC auto differential (06/29/2025 5:45 AM EST) Only the most recent of4 resultswithin the time period is included. ComponentValueRef RangeTest MethodAnalysis TimePerformed AtPathologist Signature Auto WBC4.904.00 - 10.60 10*3/uL06/29/2025 6:07 AM [facility] ([facility]) RBC3.01(L)4.20 - 5.70 10*6/uL06/29/2025 6:07 AM [facility] ([facility]) Hemoglobin8.9(L)13.0 - 17.0 g/dL06/29/2025 6:07 AM [facility] ([facility]) Cxtqmkddgn49.6(L)39.0 - 50.0 %06/29/2025 6:07 AM [facility] ([facility]) MCV95.082.0 - 98.0 fL06/29/2025 6:07 AM [facility] ([facility])MCH29.627.0 - 33.0 pg06/29/2025 6:07 AM [facility] ([facility])MCHC31.1(L)32.0 - 35.0 g/dL06/29/2025 6:07 AM [facility] ([facility])RDW15.3(H)11.5 - 15.0 % 06/29/2025 6:07 AM [facility] ([facility])Neutrophils %75.1(H)40.0 - 72.0 %06/29/2025 6:07 AM [facility] ([facility])Lymphocytes %12.7(L)20.0 - 45.0 %06/29/2025 6:07 AM [facility] ([facility])Monocytes %7.35.0 - 12.0 % 06/29/2025 6:07 AM [facility] ([facility])Eosinophils %3.30.0 - 6.0 % 06/29/2025 6:07 AM [facility] ([facility])Basophils %0.80.0 - 1.0 % 06/29/2025 6:07 AM [facility] ([facility])Neutrophils Absolute3.681.60 - 7.60 10*3/uL06/29/2025 6:07 AM [facility] ([facility])Lymphocytes Absolute 0.62(L)1.20 - 4.00 10*3/uL06/29/2025 6:07 AM [facility] ([facility]) Monocytes Absolute0.360.10 - 1.00 10*3/uL06/29/2025 6:07 AM [facility] ([facility])Eosinophils Absolute0.160.00 - 0.50 10*3/uL06/29/2025 6:07 AM [facility] ([facility])Basophils Absolute0.040.00 - 0.20 10*3/uL06/29/2025 6:07 AM [facility] ([facility])Fjbynuoar403(L)150 - 400 10*3/uL06/29/2025 6:07 AM [facility] ([facility])nRBC %0.00 %06/29/2025 6:07 AM [facility] ([facility])Immature Granulocytes %0.80.0 - 1.0 %06/29/2025 6:07 AM [facility] ([facility])Immature Granulocytes Absolute0.040.00 - 0.20 10*3/uL06/29/2025 6:07 AM [facility] ([facility])Specimen (Source)Anatomical Location / LateralityCollection Method / VolumeCollection TimeReceived TimeBloodVenous blood specimen / UnknownVenipuncture / Tkjcfku3506/29/2025 5:45 AM EST06/29/2025 5:59 AM EST Narrative Authorizing ProviderResult TypeResult StatusIdrees Vivek CEE BLOOD ORDERABLESFinal ResultPerforming OrganizationAddressCity/State/ZIP CodePhone Number [facility] ([facility]) [address] [place] [address] * (ABNORMAL) Comprehensive metabolic panel (06/29/2025 5:45 AM EST) Only the most recent of3 resultswithin the time period is included. ComponentValueRef RangeTest MethodAnalysis TimePerformed AtPathologist Signature Ussnue947026 - 145 mmol/L108/29/2024 6:30 AM [facility] ([facility]) Potassium5.13.5 - 5.1 mmol/L108/29/2024 6:30 AM [facility] ([facility]) Fhkyzoaw088(H)98 - 107 mmol/L108/29/2024 6:30 AM [facility] ([facility])CO2 2121 - 31 mmol/L108/29/2024 6:30 AM [facility] ([facility])Anion Eqi005 - 20 mmol/L108/29/2024 6:30 AM [facility] ([facility])FKM125 - 25 mg/dL 06/29/2025 6:30 AM [facility] ([facility])Creatinine1.63(H)0.70 - 1.30 mg/dL06/29/2025 6:30 AM [facility] ([facility])BUN/Creatinine Ratio14.1 06/29/2025 6:30 AM [facility] ([facility])Ykivvxj0779 - 100 mg/dL 06/29/2025 6:30 AM [facility] ([facility])Calcium8.68.6 - 10.3 mg/dL 06/29/2025 6:30 AM [facility] ([facility])AST49(H)13 - 39 U/L108/29/2024 6:30 AM [facility] ([facility])ALT (SGPT)457 - 52 U/L108/29/2024 6:30 AM [facility] ([facility])Alkaline Dalobhohmno200(H)34 - 104 U/L108/29/2024 6:30 AM [facility] ([facility])Total Protein5.9(L)6.0 - 8.3 g/dL06/29/2025 6:30 AM [facility] ([facility])Albumin3.53.5 - 5.7 g/dL06/29/2025 6:30 AM [facility] ([facility])Total Bilirubin1.1(H)0.3 - 1.0 mg/dL06/29/2025 6:30 AM [facility] ([facility])eGFR44.5(L)>60.0 mL/min/1.73m* 6:30 AM [facility] ([facility])Comment:[facility]???s estimated glomerular filtration rate (eGFR) [...] BLOOD ORDERABLESFinal ResultPerforming OrganizationAddressCity/State/ZIP CodePhone Number [facility] ([facility]) [address] [place] [address] * Prepare RBC: 2 Units (06/29/2025 1:40 AM EST) Only the most recent of3 resultswithin the time period is included. ComponentValueRef RangeTest MethodAnalysis TimePerformed AtPathologist Signature PRODUCT [id number] BLOOD BANKUnit [id number] BLOOD BANKUnit [facility] BLOOD BANKUnit [facility] BLOOD BANKCrossmatch InterpretationST. LOUIS CHILDR[facility] BLOOD BANKDispense StatusGUADALUPE COUNTY [facility]OSPITAL BLOOD BANKBlood Expiration [id number] BLOOD BANKProduct Blood Ygql5152VZQD BLOOD BANKUnit Nmtjxt916QNCTCP BLOOD BANK PRODUCT [id number] BLOOD BANKUnit [id number]-KCVEN BLOOD BANKUnit [facility] BLOOD BANKUnit [facility] BLOOD BANKCrossmatch InterpretationST. LOUIS [facility] BLOOD BANKDispense StatusGUADALUPE COUNTY HOSPITAL BLOOD BANKBlood Expiration [id number] BLOOD BANKProduct Blood Lvnt1827BCDB BLOOD BANKSpecimen (Source)Anatomical Location / LateralityCollection Method / VolumeCollection TimeReceived TimeOther 06/29/2025 1:40 AM EST Narrative Authorizing ProviderResult TypeResult StatusIdrees Vivek VELAOOD BANK PRODUCT ORDERABLESFinal ResultPerforming OrganizationAddressCity/State/ZIP Code Phone Number [facility] * Type and screen (06/29/2025 12:33 AM EST) Only the most recent of2 resultswithin the time period is included. ComponentValueRef RangeTest MethodAnalysis TimePerformed AtPathologist Signature ABO HqooewcgS20/18/2025 2:08 AM [facility] BLOOD BANKRh NwgcCVW6306/29/2025 2:08 AM [facility] BLOOD BANKAb AtgtUKZ6306/29/2025 2:08 AM [facility] BLOOD BANKSpecimen (Source)Anatomical Location / LateralityCollection Method / VolumeCollection TimeReceived TimeBloodVenous blood specimen / UnknownVenipuncture / Unknown 06/29/2025 12:33 AM EST06/29/2025 12:58 AM EST Narrative Authorizing ProviderResult TypeResult StatusNasheed Moisés [facility] BLOOD BANK TEST ORDERABLESFinal ResultPerforming OrganizationAddressCity/State/ZIP Code Phone Number [facility] BLOOD [facility]ANK * CTA Abdomen Pelvis [...] disease. Celiac artery: ??Patent. Atherosclerotic disease causing algc-hb-pamcjykd ostial stenosis. Superior mesenteric artery: ??Patent. Atherosclerotic [...] disease. Celiac artery: Patent. Atherosclerotic disease causing xgoh-gz-havabesjyhpnvj stenosis. Superior mesenteric artery: Patent. Atherosclerotic disease [...] Location / LateralityCollection Method / VolumeCollection TimeReceived XhoiTqtci91/17/2025 7:15 PM EST Narrative Authorizing ProviderResult TypeResult StatusNasheed Moisés MDPOINT OF CARE TEST ENTER/EDIT ORDERABLESFinal Result * High Sensitivity Troponin I (06/26/2025 4:40 PM EST) Only the most recent of2 resultswithin the time period is included. ComponentValueRef RangeTest MethodAnalysis TimePerformed AtPathologist Signature High Sensitivity Troponin I8<20 ng/L108/26/2024 5:13 PM ESTLOVELACE [facility] ([place])Specimen (Source)Anatomical Location / LateralityCollection Method / VolumeCollection TimeReceived TimeBloodVenous blood specimen / Unknown Venipuncture / Vfawwph3206/26/2025 4:40 PM EST06/26/2025 4:43 PM EST Narrative Authorizing ProviderResult TypeResult StatusBrayan Gutierrez MDLAB BLOOD ORDERABLESFinal ResultPerforming OrganizationAddressCity/State/ZIP CodePhone Number [facility] ([facility]) [address] [place] [address] * CTA Aorta And Bilateral Iliofemoral Runoff [...] Misha Ferrara. Authorizing ProviderResult TypeResult StatusAndsunshine Gutierrez [facility]IN[facility] [place] [facility] Final Result * CT head [...] Misha Ferrara. Authorizing ProviderResult TypeResult StatusAndresarah Gutierrez MDIN[facility] [place] [facility] Final Result * XR hand [...] MethodAnalysis TimePerformed AtPathologist Signature aPTT28.725.0 - 35.0 Sbwzgcj8806/26/2025 3:15 PM [facility] ([facility]) Comment:Clinical significance of the APTT is questionable in the presence of heparin.Specimen (Source)Anatomical Location / LateralityCollection Method / VolumeCollection TimeReceived TimeBloodVenous blood specimen / Unknown Venipuncture / Ugnopzi9906/26/2025 2:45 PM EST06/26/2025 2:53 PM EST Narrative Authorizing ProviderResult TypeResult StatusBrayan CEE BLOOD ORDERABLESFinal ResultPerforming OrganizationAddressCity/State/ZIP CodePhone Number [facility] ([facility]) [address] [place] [address] * (ABNORMAL) Protime-INR (06/26/2025 2:45 PM EST) Only the most recent of3 resultswithin the time period is included. ComponentValueRef RangeTest MethodAnalysis TimePerformed AtPathologist Signature Renjaim74.412.3 - 14.8 Gqelwah8306/26/2025 3:15 PM [facility] ([facility]) INR1.12(H)0.90 - 1.10108/26/2024 3:15 PM [facility] ([facility])Comment: ACCCP RECOMMENDED INR FOR WARFARIN THERAPY CONDITION [...] TimeReceived TimeBloodVenous blood specimen / UnknownVenipuncture / Pwuqqqg7206/26/2025 2:45 PM EST06/26/2025 2:53 PM EST Narrative Authorizing ProviderResult TypeResult StatusAndresarah CEE BLOOD ORDERABLESFinal ResultPerforming OrganizationAddressCity/State/ZIP CodePhone Number [facility] ([facility]) [address] [place] [address] * (ABNORMAL) CK total and CKMB (06/26/2025 2:45 PM EST)ComponentValueRef Range Test MethodAnalysis TimePerformed AtPathologist SignatureTotal CK158.030.0 - 223.0 U/L108/26/2024 4:02 PM [facility] ([facility])CK-MB Index2.2(H)0.0 - 1.9108/26/2024 4:02 PM [facility])CK-MB3.50.0 - 5.0 ng/mL 06/26/2025 4:02 PM EST[facility] ([place])Specimen (Source)Anatomical Location / LateralityCollection Method / VolumeCollection TimeReceived Time BloodVenous blood specimen / UnknownVenipuncture / Dxxscsu4406/26/2025 2:45 PM EST06/26/2025 2:54 PM EST Narrative Authorizing ProviderResult TypeResult StatusBrayan CEE BLOOD ORDERABLESFinal ResultPerforming OrganizationAddressCity/State/ZIP CodePhone Number [facility] ([facility]) [address] [place] [address] * XR chest 1 view (06/26/2025 2:20 [...] Signature Phosphorus3.02.5 - 5.0 mg/dL06/25/2025 4:43 PM [facility]) Specimen (Source)Anatomical Location / LateralityCollection Method / Volume Collection TimeReceived TimeBloodVenous blood specimen / UnknownVenipuncture / Gqwiddg2406/25/2025 3:29 PM EST06/25/2025 3:49 PM EST Narrative Authorizing ProviderResult TypeResult StatusBatsheva CEE BLOOD ORDERABLES Final ResultPerforming OrganizationAddressCity/State/ZIP CodePhone Number [facility]) [address] [place] [address] * Magnesium (06/25/2025 3:29 PM EST) Only the most recent of8 resultswithin the time period is included. ComponentValueRef RangeTest MethodAnalysis TimePerformed AtPathologist Signature Magnesium1.91.9 - 2.7 mg/dL06/25/2025 4:43 PM [facility]) Specimen (Source)Anatomical Location / LateralityCollection Method / Volume Collection TimeReceived TimeBloodVenous blood specimen / UnknownVenipuncture / Dvkefqe2606/25/2025 3:29 PM EST06/25/2025 3:49 PM EST Narrative Authorizing ProviderResult TypeResult StatusBatsheva CEE BLOOD ORDERABLES Final ResultPerforming OrganizationAddressCity/State/ZIP CodePhone Number [facility]) [address] [place] [address] * (ABNORMAL) Vancomycin Timed (06/17/2025 4:31 AM EST) Only the most recent of2 resultswithin the time period is included. ComponentValueRef RangeTest MethodAnalysis TimePerformed AtPathologist Signature Vancomycin Timed16.7(L)20.0 - 40.011 5:31 AM [facility] ([facility])Specimen (Source)Anatomical Location / LateralityCollection Method / VolumeCollection TimeReceived TimeBloodVenous blood specimen / Unknown Venipuncture / Hxxzjvp4606/17/2025 4:31 AM EST06/17/2025 4:56 AM EST Narrative Authorizing ProviderResult TypeResult StatusChris Andre [facility] BLOOD ORDERABLES Final ResultPerforming OrganizationAddressCity/State/ZIP CodePhone Number [facility]) [address] [place] [address] * Lactic acid with 4 hour reflex (06/15/2025 7:37 PM EST)ComponentValueRef Range Test MethodAnalysis TimePerformed AtPathologist SignatureLactate0.80.5 - 2.2 mmol/L108/15/2024 8:09 PM [facility])Specimen (Source) Anatomical Location / LateralityCollection Method / VolumeCollection Time Received TimeBloodVenous blood specimen / UnknownVenipuncture / Unknown 06/15/2025 7:37 PM EST06/15/2025 7:44 PM EST Narrative Authorizing ProviderResult TypeResult StatusDamaris Gee PA-CLAB BLOOD ORDERABLESFinal ResultPerforming OrganizationAddressCity/State/ZIP CodePhone Number [facility]) [address] [place] [address] * Blood culture (06/15/2025 7:37 PM EST) Only the most recent of2 resultswithin the time period is included. ComponentValueRef RangeTest MethodAnalysis TimePerformed AtPathologist Signature Blood CultureNo growth at 5 days JOSE 06/20/2025 8:01 PM [facility])Specimen (Source)Anatomical Location / LateralityCollection Method / VolumeCollection TimeReceived TimeBlood Venous blood specimen / UnknownVenipuncture / Mxoipxs9306/15/2025 7:37 PM EST 06/15/2025 7:44 PM EST Narrative Authorizing ProviderResult TypeResult StatusDamaris CIFUENTES MICROBIOLOGY - GENERAL ORDERABLESFinal ResultPerforming OrganizationAddressCity/State/ZIP CodePhone Number [facility] ([facility]) [address] [place] [address] * (ABNORMAL) Wound culture (06/15/2025 5:59 PM EST)ComponentValueRef RangeTest MethodAnalysis TimePerformed AtPathologist SignatureWound CultureLight Growth Enterobacter cloacae complex(A) JOSE 06/17/2025 10:36 AM [facility] ([facility])Comment:Gram Stain ResultNo polymorphonuclear leukocytes seen06/17/2025 10:36 AM [facility] ([facility])Gram Stain ResultModerate Gram negative ltaarxh5706/17/2025 10:36 AM EST [facility] ([facility])Specimen (Source)Anatomical Location / Laterality Collection Method / VolumeCollection TimeReceived TimeSwab (Leg)06/15/2025 5:59 PM EST06/15/2025 7:44 PM EST Narrative [facility] ([place]) - 06/17/2025 10:36 AM EST [...] GENERAL ORDERABLESFinal ResultPerforming OrganizationAddressCity/State/ZIP CodePhone Number [facility] ([place]) [address] [place] [address] * [facility] Lower Extremity Arterial Duplex Bypass Graft [...] RangeTest MethodAnalysis TimePerformed AtPathologist SignatureActivated Clotting Time MVF808(H)82 - 152 sec06/10/2025 12:10 AM [facility] ([place])Specimen (Source)Anatomical Location / LateralityCollection Method / VolumeCollection TimeReceived TimeBloodVenous blood specimen / Unknown 06/07/2025 5:44 PM EDT1 12:10 AM EDT Narrative Authorizing ProviderResult TypeResult Barron CEE POINT OF CARE TEST DOCKED DEVICE UNSOLICITED RESULTSFinal ResultPerforming OrganizationAddress City/State/ZIP CodePhone Number [facility] ([place]) [address] [place] [address] * Histology - tissue exam (06/07/2025 5:44 PM EDT)ComponentValueRef RangeTest MethodAnalysis TimePerformed AtPathologist SignatureCase ReportSurgical Pathology ?Case: [id number] ? Authorizing Provider: ??Chris Andre MD ?Collected: ? 06/07/2025 1744 ? Ordering Location: ? [facility] Main Operating Room ?? Received: ?06/08/2025 0806 ? Pathologist: ? Pop Salinas MD ? Specimen: ?Groin, Right ??Common femoral artery , Profunda Artery Plaque and others ? 06/11/2025 8:24 AM [facility])Final DiagnosisA. Right common femoral artery and profunda artery plaque, endarterectomy: - Calcified atherosclerotic plaque with osteoid metaplasia.06/11/2025 8:24 AM [facility]) at 0824 EDTClinical InformationPost-Op Diagnoses M79.604, M79.605 - Lower extremity pain, bilateral [ICD-10-CM] I73.9 - Severe claudication [ICD-10-CM] Z01.818 - Encounter for pre-operative examination [ICD-10-CM] 06/11/2025 8:24 AM [facility] ([facility])Gross DescriptionA. Groin. Received in formalin labeled You Garcia, Groin, Tissue, Right Common femoral artery, Profunda Artery Plaque and others, 5 wells-white, soft to partially calcified fragments of soft tissue measuring 3.7 x 2.4 x 1.3 cm in aggregate. One of the fragments is tubular, measuring 2.2 cm in length and up to 0.9 cm in diameter with 40-50% luminal narrowing. Cupola Melter sections have been submitted in one cassette following decalcification. The remainder of the specimen is contained within its formalin container. Rom Iglesias, PGY-210/ 8:24 AM [facility] ([facility])Microscopic DescriptionMicroscopic examination performed.06/11/2025 8:24 AM [facility] ([facility])Specimen (Source)Anatomical Location / LateralityCollection Method / VolumeCollection TimeReceived TimeTissue (Groin)06/07/2025 5:44 PM EDT 06/08/2025 8:06 AM EDTComment:Pre-op diagnosis: Lower extremity pain, bilateral [M79.604, M79.605] Severe claudication [I73.9] Encounter for pre-operative examination [Z01.818] Narrative Authorizing ProviderResult TypeResult StatusMunier Jes CEE PATHOLOGY ORDERABLESFinal ResultPerforming OrganizationAddressCity/State/ZIP CodePhone Number [facility] ([facility]) [address] [place] [address] * (ABNORMAL) Arterial Blood Gas Complete (06/07/2025 5:43 PM EDT)ComponentValue Ref RangeTest MethodAnalysis TimePerformed AtPathologist SignaturepH, Arterial 7.417.35 - 7.451 5:43 PM [facility] RESPIRATORY THERAPYpCO2, Opqddaie33 35 - 45 mmHg06/07/2025 5:43 PM [facility] RESPIRATORY THERAPYpO2, Fqhbnouo62(L)83 - 108 mmHg06/07/2025 5:43 PM [facility] RESPIRATORY THERAPYHCO3, Xnontcfx48.5 21.0 - 28.0 mmol/L1 5:43 PM [facility] RESPIR[facility]ORY THERAPYO2 Sat, Rccfoogb26.594.0 - 100.0 %06/07/2025 5:43 PM [facility] RESPIRATORY THERAPYBase Excess, Arterial-0.9-2.0 - 3.0 mmol/L1 5:43 PM [facility] RESPIRATORY THERAPYCalcium Ionized, Arterial1.49(H)1.13 - 1.32 mmol/L1 5:43 PM [facility] RESPIRATORY THERAPYSodium, Uzbhkofw217859 - 146 mmol/L1 5:43 PM [facility] RESPIRATORY THERAPYPotassium, Arterial4.43.4 - 5.2 mmol/L1 5:43 PM [facility] RESPIRATORY THERAPYChloride, Cncineql963(H)98 - 107 mmol/L 06/07/2025 5:43 PM [facility] RESPIRATORY THERAPYGlucose, Rgmbkdbk450(H)65 - 95 mg/dL06/07/2025 5:43 PM [facility] RESPIRATORY THERAPYLactate, Arterial1.100.36 - 1.39 mmol/L1 5:43 PM [facility] RESPIRATORY THERAPYHematocrit, Arterial 31(L)37 - 50 %06/07/2025 5:43 PM [facility] RESPIRATORY THERAPYHemoglobin, Bsymgupw42.4g/dL06/07/2025 5:43 PM [facility] RESPIRATORY THERAPYOxyhemoglobin, Rzvzcahx17.694.0 - 97.0 %06/07/2025 5:43 PM [facility] RESPIRATORY THERAPY Methemoglobin, Arterial0.80.0 - 1.5 %06/07/2025 5:43 PM [facility] RESPIRATORY THERAPYCarboxyhemoglobin, Arterial2.1%06/07/2025 5:43 PM [facility] RESPIRATORY THERAPYDeoxyhemoglobin, Arterial2.4%06/07/2025 5:43 PM [facility] RESPIRATORY CFYUAVBXwnttqmtmjg41.0??06/07/2025 5:43 PM [facility] RESPIRATORY THERAPYPF Ratio06/07/2025 5:43 PM [facility] RESPIRATORY THERAPYComment:C^Incalculable A-gVd25106/07/2025 5:43 PM [facility] RESPIRATORY THERAPYComment:C^Incalculable paO2/wTO28406/07/2025 5:43 PM [facility] RESPIRATORY THERAPYComment:C^Incalculable Specimen (Source)Anatomical Location / LateralityCollection Method / Volume Collection TimeReceived TimeBloodArterial blood specimen / Vqktvpi9006/07/2025 5:43 PM EDT1 5:43 PM EDT Narrative Authorizing ProviderResult TypeResult StatusChris CEE BLOOD ORDERABLES Final ResultPerforming OrganizationAddressCity/State/ZIP CodePhone Number [facility] RESPIRATORY THERAPY [address] [place] [address], * CO AN ELECTIVE ENDOTRACHEAL AIRWAY (06/07/2025 3:09 PM EDT) Narrative Judith Malloy MD - 06/07/2025 3:09 PM EDT Judith Malloy MD 06/07/2025 3:49 PM Airway Date/Time: 06/07/2025 3:09 PM Reason: elective Airway not difficult General Information and Staff Patient location during procedure: OR Anesthesiologist: Judith Malloy MD Resident/ELECTRICAL CALIBRATOR/CAA: Young Carcamo MD Performed: resident/ELECTRICAL CALIBRATOR/CAA Patient Condition Indications for airway management: anesthesia [...] Skin prep, Sterile drape, VSS. Staffing Performed: resident/ELECTRICAL CALIBRATOR/CAA Anesthesiologist: Judith Malloy MD Resident/ELECTRICAL CALIBRATOR: Young Carcamo MD Performed by: Young Carcamo MD Authorized by: Judith Malloy MD ?? Authorizing ProviderResult TypeResult StatusRavindersarah Malloy MDANESTHESIA ORDERABLESEdited Result - Final * (ABNORMAL) Urinalysis with microscopic (05/26/2025 2:54 PM EDT)ComponentValue Ref RangeTest MethodAnalysis TimePerformed AtPathologist SignatureColor, Urine Light-YellowColorless, Yellow, Light-Asjefl0005/26/2025 4:25 PM [facility] ([facility])Clarity, ImyzyYzmraXpaym84/15/2025 4:25 PM [facility] ([facility])Specific [place], Urine1.004(L)1.010 - 1.3675605/26/2025 4:25 PM [facility] ([facility])pH, Urine5.55.0 - 8.0 pH05/26/2025 4:25 PM [facility] ([facility])Leukocytes, UiycoQmbzypbqIvgzdqys47/15/2025 4:25 PM EDT [facility] ([facility])Nitrite, YyefdFaibbwwiOaqbtszt92/15/2025 4:25 PM EDT [facility] ([facility])Protein, UrineNegativeNegative mg/dL05/26/2025 4:25 PM [facility] ([facility])Glucose, UrineNormalNormal mg/dL05/26/2025 4:25 PM [facility] ([facility])Bilirubin, UrineNegativeNegative 05/26/2025 4:25 PM [facility] ([facility])Ketones, UrineNegativeNegative mg/dL05/26/2025 4:25 PM [facility] ([facility])Urobilinogen, Urine NormalNormal mg/dL05/26/2025 4:25 PM [facility] ([facility])Blood, Urine YnjqrtyuZqnndxlx06/15/2025 4:25 PM [facility] ([facility])RBC, UrineNone SeenNone Seen, 0-2 /HPF05/26/2025 4:25 PM [facility] ([facility])WBC, UrineNone SeenNone Seen, 0-2 /HPF05/26/2025 4:25 PM [facility] ([facility])Squamous Epithelial, UrineOccasionalNone Seen, Occasional, Few /LPF 05/26/2025 4:25 PM [facility] ([facility])Specimen (Source)Anatomical Location / LateralityCollection Method / VolumeCollection TimeReceived Time UrineUrine specimen obtained by clean catch procedure / UnknownNon-blood Collection / Ghmlffh9705/26/2025 2:54 PM EDT1 3:48 PM EDT Narrative Authorizing ProviderResult TypeResult StatusBatsheva CEE URINE ORDERABLES Final ResultPerforming OrganizationAddressCity/State/ZIP CodePhone Number [facility] ([facility]) [address] [place] [address] * (ABNORMAL) Microalbumin, urine, random (05/26/2025 2:54 PM EDT)ComponentValue Ref RangeTest MethodAnalysis TimePerformed AtPathologist SignatureMicroalb, Ur <1mg/dL05/26/2025 4:34 PM [facility] ([facility])Microalb/Creat Ratio 05/26/2025 4:34 PM [facility] ([facility])Comment:Unable to calculate Creatinine, Ur24.0(L)26 - 299 mg/dL05/26/2025 4:34 PM [facility] ([facility])Specimen (Source)Anatomical Location / LateralityCollection Method / VolumeCollection TimeReceived TimeUrineUrine specimen obtained by clean catch procedure / UnknownNon-blood Collection / Ecpklhf1105/26/2025 2:54 PM EDT 05/26/2025 3:48 PM EDT Narrative Authorizing ProviderResult TypeResult StatusBatsheva CEE URINE ORDERABLES Final ResultPerforming OrganizationAddressCity/State/ZIP CodePhone Number [facility]) [address] [place] [address] * (ABNORMAL) Creatinine, urine, random (05/26/2025 2:54 PM EDT)ComponentValueRef RangeTest MethodAnalysis TimePerformed AtPathologist SignatureCreatinine, Ur 24.0(L)26 - 299 mg/dL05/26/2025 4:34 PM [facility]TN[facility] ([facility])Specimen (Source)Anatomical Location / LateralityCollection Method / VolumeCollection TimeReceived TimeUrineUrine specimen obtained by clean catch procedure / UnknownNon-blood Collection / Cygfryq4005/26/2025 2:54 PM EDT1 3:48 PM EDT Narrative Authorizing ProviderResult TypeResult StatusBatsheva CEE URINE ORDERABLES Final ResultPerforming OrganizationAddressCity/State/ZIP CodePhone Number [facility]) [address] [place] [address] * Vitamin D 25 hydroxy (05/26/2025 2:54 PM EDT)ComponentValueRef RangeTest MethodAnalysis TimePerformed AtPathologist SignatureVit D, 25-Hbhdbcb73.030.0 - 80.0 ng/mL05/26/2025 4:48 PM [facility] ([facility])Comment:>80.0 Toxicity possibleSpecimen (Source)Anatomical Location / LateralityCollection Method / VolumeCollection TimeReceived TimeBloodVenous blood specimen / UnknownVenipuncture / Jrfrcad0405/26/2025 2:54 PM EDT1 3:52 PM EDT Narrative Authorizing ProviderResult TypeResult StatusBatsheva CEE BLOOD ORDERABLES Final ResultPerforming OrganizationAddressCity/State/ZIP CodePhone Number [facility]) [address] [facility] [place] [phone] * PTH, intact (05/26/2025 2:54 PM EDT)ComponentValueRef RangeTest MethodAnalysis TimePerformed AtPathologist SxkzbxusaVNZ1598 - 88 pg/mL05/26/2025 7:13 PM EDT [facility] ([facility])Specimen (Source)Anatomical Location / Laterality Collection Method / VolumeCollection TimeReceived TimeBloodVenous blood specimen / UnknownVenipuncture / Dfbuyom4905/26/2025 2:54 PM EDT1 3:52 PM EDT Narrative Authorizing ProviderResult TypeResult StatusZubia Tang CEE BLOOD ORDERABLES Final ResultPerforming OrganizationAddressCity/State/ZIP CodePhone Number [facility] ([facility]) [address] [place] [address] * MRSA/MSSA DNA Nasal (05/24/2025 2:48 PM EDT)ComponentValueRef RangeTest Method Analysis TimePerformed AtPathologist SignatureMSSA DNANegativeNegative 05/25/2025 1:50 PM [facility])MRSA DNANegativeNegative 05/25/2025 1:50 PM [facility] ([facility])Specimen (Source)Anatomical Location / LateralityCollection Method / VolumeCollection TimeReceived Time SwabNasal structure / UnknownNon-blood Collection / Ugiqmhh3605/24/2025 2:48 PM EDT1 3:24 PM EDT Narrative [facility] ([facility]) - 05/25/2025 1:50 PM EDT Testing methodology [...] GENERAL ORDERABLESFinal ResultPerforming OrganizationAddressCity/State/ZIP Code Phone Number [facility] ([facility]) [address] [place], [place] [phone] * CORONARY ANGIOGRAPHY, CORONARY BYPASS GRAFT STUDY (05/11/2025 12:47 PM EDT) Anatomical RegionLateralityModalityOtherSpecimen (Source)Anatomical Location / LateralityCollection Method / VolumeCollection TimeReceived Time Narrative 05/11/2025 1:11 PM EDT Cardiovascular Laboratory Report FINAL IMPRESSIONS: ?? Severe, three-vessel [place] coronary artery disease There are 2 out [...] micropuncture kit was upsized to a 6 [place] 11 cm sheath. Bilateral selective coronary angiography [...] have been documented. Authorizing ProviderResult TypeResult StatusEhab [facility] CARDI[facility] CATH PROCEDURESFinal Result * Electrocardiogram, 12-lead (05/11/2025 8:08 AM EDT)ComponentValueRef RangeTest MethodAnalysis TimePerformed AtPathologist SignatureVentricular Kksa07UQJEQ MUSEAtrial Dxnm21HGMBW MUSEPR Jtvxzmdo622fqPI MUSEQRS MYRJRTOO743voAM MUSEQT Uptzywea773dhHG MUSEQTC CALCULATION(BAZETT)466msGE MUSEP Odwr94kzbokzfGD MUSE M-Etpb-45hplmwahGD MUSET Wave Bbui93bxhylmnNT MUSESpecimen (Source)Anatomical Location / LateralityCollection Method / [...] (Latest Code Status on File) Date ActivatedDate ZflianrhaspXfsptrwi15/18/2025 4:23 AM07/01/2025 8:53 PM * Full Code Date ActivatedDate ZtomirqhswzPxnygswc88/4/2025 9:45 PM06/19/2025 9:53 PM * Full Code Date ActivatedDate KugefbxahnhFugdzvig48/27/2025 5:10 PM10 9:30 PM * Full Code Date ActivatedDate InactivatedComments05/11/2025 12:48 PM05/11/2025 8:03 PM Care Teams Team MemberRelationshipSpecialtyStart DateEnd Date Susan Watson MD [address] [facility] [place] [address] PCP - GeneralNurse Practitioner10/13/24
[2025-08-04 21:52] LABS: Hematocrit 24.2 % (42.0-54.0); Hemoglobin 7.6 g/dL (14.0-18.0); Immature Granulocytes Abs Auto 0.08 10^3/uL (0.00-0.03); Immature Granulocytes Pct Auto 1.3 % (0.0-0.5); Lymphocytes Absolute Auto 1.0 10^3/uL (1.2-3.8); Mean Corpuscular HGB Conc 31.4 g/dL (29.9-35.2); Mean Corpuscular Hemoglobin 29.7 pg (25.9-34.0); Mean Corpuscular Volume 94.5 fL (80.0-94.0); Platelet Count 120 10^3/uL (150-450); Red Blood Count 2.56 10^6/uL (4.70-6.10); White Blood Count 6.3 10^3/uL (4.0-11.0)
--- NOTE | 2025-08-04 22:44 | ECG_ITS ---
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 Measurements Intervals [place] Rate: 59 P: 45 TN: 156 QRS: 13 QRSD: 110 T: 189 QT: 446 QTc: 446 Interpretive Statements SINUS BRADYCARDIA Inferolateral ST and T wave abnormalities, consider subendocardial ischemia 9150 abnormal ECG Compared to ECG 07/15/2025 09:26:53 ST (T wave) deviation still present Myocardial infarct finding no longer present Electronically Signed On 08-05-2025 7:54:52 EST by LEVI RAIN M.D.
[2025-08-04 23:00] LABS: Anion Gap 13.2; Blood Urea Nitrogen 45.0 mg/dL (7.0-18.0); Calcium 8.6 mg/dL (8.5-10.1); Carbon Dioxide 27.5 mmol/L (21.0-32.0); Chloride 105 mmol/L (98-107); Estimated GFR (African America 19 (>=60 mL/min/1.73m^2); Estimated GFR (Non-African Ame 16 (>=60 mL/min/1.73m^2); Glucose 87 mg/dL (74-106); Potassium 4.7 mmol/L (3.5-5.1); Sodium 141 mmol/L (136-145)
[2025-08-04 23:01] LABS: NT Pro B Type Natriuretic Pept 1672.0 pg/mL (<=900.0)
[2025-08-04 23:40] VITALS: BP 130/65; PULSE 60; O2SAT 95
[2025-08-05] VITALS (23 sets, daily range): BP systolic 106–142; BP diastolic 54–74; PULSE 59–82; TEMP 36.6–37; O2SAT 90–98; BMI 25.3
[2025-08-05] LABS: Glucose Urine UA NEGATIVE (NEGATIVE)
[2025-08-05 00:14] LABS: Cast Seen? NONE SEEN #/LPF (NONE SEEN); Crystals Seen? None Seen #/HPF (None Seen); Urine Culture Indicated NO
[2025-08-05] MEDS: 0.9 % SODIUM CHLORIDE 1,000 ML 250 ML IV ×2 (04:27→09:03)
--- NOTE | 2025-08-05 08:00 | ECG_ITS ---
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 Measurements Intervals [place] Rate: 58 P: 59 [place]: 187 QRS: 17 QRSD: 125 T: 75 QT: 479 QTc: 472 Interpretive Statements SINUS BRADYCARDIA MODERATE INTRAVENTRICULAR CONDUCTION DELAY [110+ ms QRS DURATION] NONSPECIFIC ST & T-WAVE ABNORMALITY PROLONGED QT INTERVAL Abnormal ECG Compared to ECG 08/04/2025 20:49:42 Intraventricular conduction delay now present Prolonged QT interval now present ST & T-wave abnormality still present Electronically Signed On 08-05-2025 7:59:02 EST by LEVI RAIN M.D.
[2025-08-05] MEDS: ISOSORBIDE MONONITRATE 60 MG TAB.ER.24H PO (08:40)
[2025-08-05] MEDS: BUSPIRONE HCL 15 MG TABLET PO ×2 (08:40→21:31)
[2025-08-05] MEDS: ASPIRIN 81 MG TABLET.DR PO (08:40)
[2025-08-05] MEDS: CLOPIDOGREL BISULFATE 75 MG TABLET PO (08:40)
[2025-08-05] MEDS: BUPROPION HCL 150 MG XL TABLET 24H 300 MG PO (08:40)
[2025-08-05] MEDS: METOPROLOL TARTRATE 50 MG TABLET 12.5 MG PO ×2 (08:41→21:31)
--- NOTE | 2025-08-05 09:45 | PM.HP ---
HPI H&P: HPI History of Present Illness Chief complaint: ACUTE RENAL FAILURE Narrative: Mr. Garcia is a 70-year-old gentleman who is known to me from recent admission. Outpatient blood work completed by primary care doctor showed progression of kidney failure therefore he was instructed to come to the emergency room for an admission. Patient feels well otherwise. No chest pain or palpitation. No fever or chills. No dizziness. Patient has been taking Lasix 20 mg daily since last admission. He denies any fever or chills. No change in mental status, weakness or numbness Opioid HPI Opioid Management Most Recent Pain and Opioid Data: Last Pain Scale 0 07/15/25, 09:41 Last Pain Intensity 0 07/15/25, : Last Pain Assessment Today, :11 Last ORT Total Score 0 Today, 04:07 Last ORT Risk Category Low Risk Today, 04:07 Review of Systems ROS Status of ROS 10 or more systems reviewed and unremarkable except as noted in history and below PFS PFS Medical History (Updated 08/05/25 @ 05:10 by Khalida Elizondo) Anxiety ?F41.9 - Anxiety disorder, unspecified (ICD-10) Chronic kidney disease ?N18.9 - Chronic kidney disease, unspecified (ICD-10) CHF (congestive heart failure) ?I50.9 - Heart failure, unspecified (ICD-10) History of lung cancer ?Z85.118 - Personal history of other malignant neoplasm of bronchus and lung (ICD-10) PVD (peripheral vascular disease) ?I73.9 - Peripheral vascular disease, unspecified (ICD-10) HTN (hypertension) ?I10 - Essential (primary) hypertension (ICD-10) Surgical History (Updated 07/13/25 @ 02:11 by Radha Garces, JOHANA) History of lobectomy of lung ?Z90.2 - Acquired absence of lung [part of] (ICD-10) Status post femoral-popliteal bypass surgery ?Z95.828 - Presence of other vascular implants and grafts (ICD-10) Family History (Updated 08/05/25 @ 03:50 by Khalida Elizondo) Sister Family history of colon cancer Family history of diabetes mellitus Brother Family history of heart disease Family history of myocardial infarction Mother Family history of diabetes mellitus Family history of hypertension Social History (Updated 08/05/25 @ 03:51 by Khalida Elizondo) Within the past year, how often did you have a drink containing alcohol: never Score interpretation: A score less than 4 is consistent with normal alcohol consumption. Smoking status: Former smoker Non-prescribed substance use: denies use Previous occupational history: retired Highest level of school completed/degree received: GED or equivalent Are you now , , , , never or living with a partner: In a typical week, how many times do you talk on the telephone with family, friends, or neighbors: 3 or more times per week How often do you get together with friends or relatives: 3 or more times per week Little interest or pleasure in doing things: not at all Feeling down, depressed, or hopeless: not at all Feel stressed/tense/nervous/anxious/difficulty sleeping: not at all Do you think of yourself as: straight/heterosexual Gender Identity: male Meds Home Medications and Allergies Home Medications ?Medication ?Instructions ?Recorded ?Confirmed ?Type aspirin 81 mg tablet,delayed 81 mg PO QDAY 07/12/25 08/04/25 History release bupropion HCl 300 mg 24 hr tablet, 300 mg PO QDAY 07/12/25 08/04/25 History extended release buspirone 15 mg tablet 15 mg PO BID 07/12/25 08/04/25 History clopidogrel 75 mg tablet 75 mg PO QDAY 07/12/25 08/04/25 History fenofibrate micronized 43 mg 43 mg PO QDAY 07/12/25 08/04/25 History capsule isosorbide mononitrate 60 mg 60 mg PO QDAY 07/12/25 08/04/25 History tablet,extended release 24 hr olanzapine 5 mg tablet 5 mg PO QPM 07/12/25 08/05/25 History rivaroxaban 2.5 mg tablet (Xarelto) 2.5 mg PO BID 07/12/25 08/05/25 History sertraline 100 mg tablet 100 mg PO QDAY 07/12/25 08/05/25 History ferrous sulfate 325 mg (65 mg 325 mg PO QDAY 07/13/25 08/04/25 History iron) tablet (FeroSul) furosemide 20 mg tablet 20 mg PO BID #60 tabs 07/16/25 08/04/25 Rx metoprolol tartrate 50 mg tablet 25 mg (1/2 x 50 mg) PO BID #0 tabs 07/16/25 08/04/25 Rx trazodone 100 mg tablet 100 mg PO HS #0 tabs 07/16/25 08/05/25 Rx famotidine 20 mg tablet 20 mg PO Q12H 08/05/25 08/05/25 History Allergies Allergy/AdvReac Type Severity Reaction Status Date / Time No Known Drug Allergies Allergy Verified 08/04/25 20:37 Exam Narrative Exam Narrative: [pt is awake and alert. oriented to place, time and person HEENT: [place] conjunctiva and NL buccal mucosa Neck: Supple, no tenderness Endocrine: No Thyromegaly. Vascular: No JVD or carotid bruit. Lymphatic: No cervical lymphadenopathy. Chest: Diminished breath sounds and crackles at the right mid and lower lung. Heart RRR, no extra sound or murmur. Abd: Soft, no tenderness, no rebound and no rigidity. Increase abd girth therefore clinically I could not exclude the possibility of intra abd mass or organomegaly. LE: No cyanosis or clubbing, no varices or edema. Neuro: A A O. Nl speech, comprehension and attention. Nl and symetrical motor and tone examination through out. []] Constitutional Vital Signs, click to edit/add: Last Vital Signs Temp 97.8 F 08/05/25 08:16 Pulse 64 08/05/25 08:16 Resp 18 08/05/25 08:16 BP 115/54 08/05/25 08:16 Pulse Ox 91 L 08/05/25 08:16 O2 Del Method Room Air 08/05/25 08:16 Results Labs Labs: Short CBC 08/04/25 Range/Units 21:35 WBC 6.3 (4.0-11.0) 10^3/uL Hgb 7.6 L (14.0-18.0) g/dL Hct 24.2 L (42.0-54.0) % Plt Count 120 L (150-450) 10^3/uL BMP 08/04/25 21:35 Sodium 141 Potassium 4.7 Chloride 105 Carbon Dioxide 27.5 BUN 45.0 H Creatinine 3.84 H Glucose 87 Calcium 8.6 Urine 08/04/25 Range/Units 23:45 Urine Color Lt. yellow (YELLOW) Urine Clarity Sl cloudy (CLEAR) Urine pH 5.5 (5.0-9.0) Ur Specific [place] <=1.005 A (1.005-1.025) Urine Protein Negative (NEG/TRACE) mg/dL Urine Glucose (UA) Negative (NEGATIVE) mg/dL Assessment and Plan Assessment and Plan (1) Acute renal failure (ARF): Plan Acute on chronic kidney failure His baseline creatinine is 1.9. Baseline creatinine clearance is 35. Now his creatinine is up to 3.84 and creatinine clearance down to 20. I requested CT abdomen rule out obstruction. That came back negative for obstructive uropathy. I requested UA and that came back negative for protein or RBC to suggest active sediment for nephritis or nephrotic syndrome. No fever or rash to suggest interstitial nephritis. Clinically there is no evidence of fluid overload. No edema. No JVD. I suspect that his progressive kidney failure is secondary to hemodynamic shift and hypovolemia. Patient was discharged last admission on Lasix 20 mg twice a day I had accepted to admit patient to the medical floor I started him on IV fluid infusion. Monitor kidney function. Anemia, progressive drop of his hemoglobin. Patient denies any hematemesis or melena Patient is on dual antiplatelets therapy as well as Xarelto 2.5 mg twice a day for peripheral vascular disease I held his antiplatelets and Xarelto for now Requested to check stool Hemoccult. Requested to check iron, TIBC, iron sat, ferritin, B12 and folate. Requested reticulocyte count, LDH and haptoglobin as well as LFTs to rule out hemolysis. I started patient on PPI intravenously Repeat H&H every 8 hours and probable need of transfusion. If he continues to drop H&H and/or stool Hemoccult positive he may need to have endoscopy Abnormal chest imaging with the lymphadenopathy. History of lung cancer. I could not exclude the possibility of recurrence. After I discharged him last admission, the patient was seen by his construction contractor Dr. Brock in [place] According to patient's daughter, discussion took place regarding the need for bronchoscopy, biopsy versus watchful approach. The decision was made not to proceed with any intervention but repeat CAT scan in October. Patient does not have any respiratory symptoms. No cough or shortness of breath. The prep for the needed diagnostic and therapeutic intervention added to his abnormality seen on recent chest imaging to be addressed by his construction contractor. Probable mild UTI Requested urine culture. I started patient on ceftriaxone Peripheral vascular disease Recent vascular intervention completed in [place]. No clinical evidence of acute arterial compromise Coronary artery disease. Previous history of coronary artery bypass graft No active chest pain or angina. Continue beta-kelsy. Continue isosorbide. Hold antiplatelets due to hemoglobin drop. Chronic, subacute medical conditions not listed above, abnormal labs and imaging, incidental findings seen on labs and or imaging. These would need to be addressed. Could be addressed later on or in the outpatient setting by PCP collaboration with other needed outpatient providers when time and condition are appropriate. I had discussed this case with his daughter at the bedside. I provided her information about his disease, prognosis, expectation and trajectory. Answered all of her questions.
[2025-08-05] MEDS: SERTRALINE HCL 100 MG TABLET PO (10:10)
[2025-08-05] MEDS: PANTOPRAZOLE SODIUM 40 MG VIAL IV ×2 (10:10→21:31)
[2025-08-05 14:17] LABS: Hemoglobin 7.1 g/dL (14.0-18.0); Mean Corpuscular HGB Conc 30.7 g/dL (29.9-35.2); Mean Corpuscular Hemoglobin 29.6 pg (25.9-34.0); Mean Corpuscular Volume 96.3 fL (80.0-94.0); Platelet Count 106 10^3/uL (150-450); Red Blood Count 2.40 10^6/uL (4.70-6.10); White Blood Count 4.7 10^3/uL (4.0-11.0)
[2025-08-05 14:20] LABS: Reticulocyte Pct Auto 4.82 % (0.60-3.10)
[2025-08-05 14:22] LABS: Hematocrit 23.1 % (42.0-54.0)
[2025-08-05 14:37] LABS: Alanine Aminotransferase 64 U/L (16-63); Albumin Globulin Ratio 0.9; Albumin Level 2.6 g/dL (3.4-5.0); Alkaline Phosphatase 129 U/L (46-116); Anion Gap 10.2; Aspartate Amino Transferase 65 U/L (15-37); Blood Urea Nitrogen 36.0 mg/dL (7.0-18.0); Calcium 8.3 mg/dL (8.5-10.1); Carbon Dioxide 28.1 mmol/L (21.0-32.0); Chloride 111 mmol/L (98-107); Estimated GFR (African America 26 (>=60 mL/min/1.73m^2); Estimated GFR (Non-African Ame 21 (>=60 mL/min/1.73m^2); Globulin 3.0 g/dL; Glucose 121 mg/dL (74-106); Potassium 4.3 mmol/L (3.5-5.1); Sodium 145 mmol/L (136-145); Total Protein 5.6 g/dL (6.4-8.2)
[2025-08-05 15:05] LABS: Iron 30.0 ug/dL (65.0-175.0); Percent Iron Saturation 9.2 %; Total Iron Binding Capacity 325.0 ug/dL (250.0-450.0)
[2025-08-05 15:24] LABS: Ferritin 142.0 ng/mL (26.0-388.0); Folate 17.80 ng/mL (8.60-58.90)
[2025-08-05] MEDS: IRON SUCROSE COMPLEX 200 MG in 0.9 % SODIUM CHLORIDE 100 ML 220 MG IV (15:56)
[2025-08-05] MEDS: 0.9 % SODIUM CHLORIDE 250 ML 10 ML IV (15:58)
[2025-08-05 21:05] LABS: Hematocrit 25.8 % (42.0-54.0); Hemoglobin 8.2 g/dL (14.0-18.0)
[2025-08-06] VITALS (20 sets, daily range): BP systolic 101–131; BP diastolic 51–74; PULSE 60–79; TEMP 36.4–36.8; O2SAT 90–96
[2025-08-06 05:50] LABS: Hematocrit 27.4 % (42.0-54.0); Hemoglobin 8.7 g/dL (14.0-18.0); Mean Corpuscular HGB Conc 31.8 g/dL (29.9-35.2); Mean Corpuscular Hemoglobin 30.0 pg (25.9-34.0); Mean Corpuscular Volume 94.5 fL (80.0-94.0); Platelet Count 115 10^3/uL (150-450); Red Blood Count 2.90 10^6/uL (4.70-6.10); White Blood Count 6.6 10^3/uL (4.0-11.0)
[2025-08-06 06:14] LABS: Alanine Aminotransferase 68 U/L (16-63); Albumin Globulin Ratio 0.8; Albumin Level 2.8 g/dL (3.4-5.0); Alkaline Phosphatase 143 U/L (46-116); Anion Gap 11.9; Aspartate Amino Transferase 65 U/L (15-37); Blood Urea Nitrogen 27.0 mg/dL (7.0-18.0); Calcium 8.5 mg/dL (8.5-10.1); Carbon Dioxide 28.4 mmol/L (21.0-32.0); Chloride 110 mmol/L (98-107); Estimated GFR (African America 32 (>=60 mL/min/1.73m^2); Estimated GFR (Non-African Ame 26 (>=60 mL/min/1.73m^2); Globulin 3.4 g/dL; Glucose 96 mg/dL (74-106); Potassium 4.3 mmol/L (3.5-5.1); Sodium 146 mmol/L (136-145); Total Protein 6.2 g/dL (6.4-8.2)
--- NOTE | 2025-08-06 08:35 | CM.NOTE ---
Rounds made with Dr. Tobar, discussed with pt diagnosis and plan of care. Pt inpatient status, no discharge today. Pt up ad etienne in room, denies needs for PT. Dr. Tobar discussed with RN need for occult stool, pt also verbalizes understanding.
[2025-08-06] MEDS: SERTRALINE HCL 100 MG TABLET PO (08:55)
[2025-08-06] MEDS: METOPROLOL TARTRATE 50 MG TABLET 12.5 MG PO ×2 (08:55→21:01)
[2025-08-06] MEDS: BUPROPION HCL 150 MG XL TABLET 24H 300 MG PO (08:55)
[2025-08-06] MEDS: BUSPIRONE HCL 15 MG TABLET PO ×2 (08:55→21:01)
[2025-08-06] MEDS: ISOSORBIDE MONONITRATE 60 MG TAB.ER.24H PO (08:56)
[2025-08-06] MEDS: PANTOPRAZOLE SODIUM 40 MG VIAL IV ×2 (08:56→21:01)
--- NOTE | 2025-08-06 10:03 | CM.NOTE ---
Important Message From Medicare discussed with pt, pt verbalizes understanding and signs paper. Original given to pt and copy placed on pt's chart.
--- NOTE | 2025-08-06 10:05 | PM.PN ---
Progress Note: Subjective Subjective Interval history: Patient is feeling great. No chest pain or palpitation. No abdominal pain, nausea or vomiting. Exam Narrative Exam Narrative: [pt is awake and alert. oriented to place, time and person HEENT: [place] conjunctiva and NL buccal mucosa Neck: Supple, no tenderness Endocrine: No Thyromegaly. Vascular: No JVD or carotid bruit. Lymphatic: No cervical lymphadenopathy. Chest: Diminished breath sounds and crackles at the right mid and lower lung. Heart RRR, no extra sound or murmur. Abd: Soft, no tenderness, no rebound and no rigidity. Increase abd girth therefore clinically I could not exclude the possibility of intra abd mass or organomegaly. LE: No cyanosis or clubbing, no varices or edema. Neuro: A A O. Nl speech, comprehension and attention. Nl and symetrical motor and tone examination through out. []] Constitutional Vital Signs, click to edit/add: Last Vital Signs Temp 97.6 F 08/06/25 07:29 Pulse 64 08/06/25 09:57 Resp 16 08/06/25 04:00 BP 131/74 08/06/25 07:29 Pulse Ox 95 08/06/25 07:29 O2 Del Method Room Air 08/06/25 07:29 Progress Note: Objective Labs Labs: Short CBC 08/05/25 08/05/25 08/06/25 Range/Units 13:55 20:56 05:35 WBC 4.7 6.6 (4.0-11.0) 10^3/uL Hgb 7.1 L 8.2 L 8.7 L (14.0-18.0) g/dL Hct 23.1 L* 25.8 L 27.4 L (42.0-54.0) % Plt Count 106 L 115 L (150-450) 10^3/uL BMP 08/05/25 08/06/25 13:55 05:35 Sodium 145 146 H Potassium 4.3 4.3 Chloride 111 H 110 H Carbon Dioxide 28.1 28.4 BUN 36.0 H 27.0 H Creatinine 2.93 H 2.44 H Glucose 121 H 96 Calcium 8.3 L 8.5 Liver Function 08/05/25 08/06/25 Range/Units 13:55 05:35 Total Bilirubin 0.2 0.3 (0.2-1.0) mg/dL AST 65 H 65 H (15-37) U/L ALT 64 H 68 H (16-63) U/L Alkaline Phosphatase 129 H 143 H (46-116) U/L Albumin 2.6 L 2.8 L (3.4-5.0) g/dL Progress Note: A&P Assessment and Plan (1) Acute renal failure (ARF): Plan Acute on chronic kidney failure His baseline creatinine is 1.9. Baseline creatinine clearance is 35. Now his creatinine is up to 3.84 and creatinine clearance down to 20. I requested CT abdomen rule out obstruction. That came back negative for obstructive uropathy. I requested UA and that came back negative for protein or RBC to suggest active sediment for nephritis or nephrotic syndrome. No fever or rash to suggest interstitial nephritis. Clinically there is no evidence of fluid overload. No edema. No JVD. I suspect that his progressive kidney failure is secondary to hemodynamic shift and hypovolemia. Patient was discharged last admission on Lasix 20 mg twice a day I had accepted to admit patient to the medical floor I started him on IV fluid infusion. Kidney function continues to improve slowly. Approaching baseline. Anemia, progressive drop of his hemoglobin. Patient denies any hematemesis or melena Patient is on dual antiplatelets therapy as well as Xarelto 2.5 mg twice a day for peripheral vascular disease I held his antiplatelets and Xarelto for now Requested to check stool Hemoccult. That is still pending. Patient had bowel movement yesterday. He reported the color is dark brown. No black. No melena. No blood. Unfortunately patient does not save it for nurse to send the sample for Hemoccult. Requested to check iron, TIBC, iron sat, ferritin, B12 and folate. Thus far came back positive for mixed etiology anemia. Likely iron deficiency with anemia secondary to CKD. Requested reticulocyte count, LDH and haptoglobin as well as LFTs to rule out hemolysis. Reticulocyte count is elevated however his LDH is normal. Bilirubin is normal making possibility of hemolysis unlikely. Haptoglobin is pending. I started patient on PPI intravenously I started the patient on iron infusion as well as Procrit Repeat H&H every 8 hours and probable need of transfusion. I transfused patient 1 unit of RBC per If he continues to drop H&H and/or stool Hemoccult positive he may need to have endoscopy Hemoglobin is stable posttransfusion. Resume Xarelto. Keep Plavix and aspirin on hold for another 24 to 48 hours Abnormal chest imaging with the lymphadenopathy. History of lung cancer. I could not exclude the possibility of recurrence. After I discharged him last admission, the patient was seen by his harvesting supervisor Dr. Brock in [place] According to patient's daughter, discussion took place regarding the need for bronchoscopy, biopsy versus watchful approach. The decision was made not to proceed with any intervention but repeat CAT scan in October. Patient does not have any respiratory symptoms. No cough or shortness of breath. The prep for the needed diagnostic and therapeutic intervention added to his abnormality seen on recent chest imaging to be addressed by his harvesting supervisor. Probable mild UTI Requested urine culture. I started patient on ceftriaxone Peripheral vascular disease Recent vascular intervention completed in [place]. No clinical evidence of acute arterial compromise Coronary artery disease. Previous history of coronary artery bypass graft No active chest pain or angina. Continue beta-kelsy. Continue isosorbide. Hold antiplatelets due to hemoglobin drop. Chronic, subacute medical conditions not listed above, abnormal labs and imaging, incidental findings seen on labs and or imaging. These would need to be addressed. Could be addressed later on or in the outpatient setting by PCP collaboration with other needed outpatient providers when time and condition are appropriate.
[2025-08-06] MEDS: SODIUM CHLORIDE 0.45 % 1,000 ML 80 ML IV (10:24)
[2025-08-06] MEDS: RIVAROXABAN 2.5 MG TABLET PO ×2 (10:24→21:01)
[2025-08-06] MEDS: IRON SUCROSE COMPLEX 200 MG in 0.9 % SODIUM CHLORIDE 100 ML 110 MG IV (16:00)
[2025-08-06] MEDS: EPOETIN ALFA 4,000 UNIT/ML VIAL 4000 UNIT SUBQ (17:00)
[2025-08-07] VITALS (15 sets, daily range): BP systolic 103–134; BP diastolic 56–64; PULSE 62–81; TEMP 36.8–37.1; O2SAT 92–94
[2025-08-07 04:07] LABS: Vitamin B12 688 pg/mL (232-1245)
[2025-08-07 06:41] LABS: Hematocrit 27.0 % (42.0-54.0); Hemoglobin 8.4 g/dL (14.0-18.0); Mean Corpuscular HGB Conc 31.1 g/dL (29.9-35.2); Mean Corpuscular Hemoglobin 29.7 pg (25.9-34.0); Mean Corpuscular Volume 95.4 fL (80.0-94.0); Platelet Count 115 10^3/uL (150-450); Red Blood Count 2.83 10^6/uL (4.70-6.10); White Blood Count 5.6 10^3/uL (4.0-11.0)
[2025-08-07 06:51] LABS: Anion Gap 15.4; Blood Urea Nitrogen 19.0 mg/dL (7.0-18.0); Calcium 8.4 mg/dL (8.5-10.1); Carbon Dioxide 24.1 mmol/L (21.0-32.0); Chloride 109 mmol/L (98-107); Estimated GFR (African America 40 (>=60 mL/min/1.73m^2); Estimated GFR (Non-African Ame 33 (>=60 mL/min/1.73m^2); Glucose 95 mg/dL (74-106); Potassium 4.5 mmol/L (3.5-5.1); Sodium 144 mmol/L (136-145)
[2025-08-07] MEDS: 0.9 % SODIUM CHLORIDE 250 ML 10 ML IV (08:39)
[2025-08-07] MEDS: SERTRALINE HCL 100 MG TABLET PO (08:40)
[2025-08-07] MEDS: ISOSORBIDE MONONITRATE 60 MG TAB.ER.24H PO (08:40)
[2025-08-07] MEDS: BUSPIRONE HCL 15 MG TABLET PO (08:40)
[2025-08-07] MEDS: BUPROPION HCL 150 MG XL TABLET 24H 300 MG PO (08:40)
[2025-08-07] MEDS: PANTOPRAZOLE SODIUM 40 MG VIAL IV (08:40)
[2025-08-07] MEDS: METOPROLOL TARTRATE 25 MG TABLET 12.5 MG PO (09:17)
--- NOTE | 2025-08-07 12:44 | PM.DS1 ---
DS: Providers Provider Date of admission: 08/05/25 03:50 Primary care physician: Susan Watson NP DS: Diagnosis Discharge Diagnosis (1) Acute renal failure (ARF): (2) GI bleed: Plan As listed above, below and others that are not listed DS: Summary Hospital Course Hospital Course: Mr. Garcia is a 70-year-old gentleman who came in for an evaluation and treatment of KELLIE that was detected on an outpatient blood work. Acute on chronic kidney failure His baseline creatinine is 1.9. Baseline creatinine clearance is 35. Now his creatinine is up to 3.84 and creatinine clearance down to 20. I requested CT abdomen rule out obstruction. That came back negative for obstructive uropathy. I requested UA and that came back negative for protein or RBC to suggest active sediment for nephritis or nephrotic syndrome. No fever or rash to suggest interstitial nephritis. Clinically there is no evidence of fluid overload. No edema. No JVD. I suspect that his progressive kidney failure is secondary to hemodynamic shift and hypovolemia. Patient was discharged last admission on Lasix 20 mg twice a day I had accepted to admit patient to the medical floor I started him on IV fluid infusion. KELLIE had resolved and the kidney function is back to baseline which is creatinine around 2.0. Anemia, progressive drop of his hemoglobin. His baseline hemoglobin a month ago was at 10, in April was 11. When he came in hemoglobin is at 7.6 which later dropped to 7.1 Patient denies any hematemesis or bloody stool but reported that his stool is dark in color Patient is on dual antiplatelets therapy as well as Xarelto 2.5 mg twice a day for peripheral vascular disease I held his antiplatelets and Xarelto for now Requested to check stool Hemoccult. This came back positive. Requested to check iron, TIBC, iron sat, ferritin, B12 and folate. Thus far came back positive for mixed etiology anemia. Likely iron deficiency with anemia secondary to CKD. Requested reticulocyte count, LDH and haptoglobin as well as LFTs to rule out hemolysis. Reticulocyte count is elevated however his LDH is normal. Haptoglobin is normal. Bilirubin is normal making possibility of hemolysis unlikely. I started patient on PPI intravenously I started the patient on iron infusion as well as Procrit Repeat H&H every 8 hours and probable need of transfusion. Hemoglobin is gradually drifting down. I transfused patient 1 unit of RBC per I discussed this case with him and his daughter at the bedside. Patient had colonoscopy at [facility] a month ago which showed diverticulosis, hemorrhoids and a large colon polyp which was not removed due to risk of a bleed. Patient did not have EGD. At this time, I believe that the patient is gradually and slowly oozing of blood somewhere in the GI system. I believe that the would need EGD specifically given the fact that he is on dual antiplatelet therapy as well as Xarelto for his peripheral vascular disease. I called and discussed his case with hospitalist KAT at [facility]. He accepted patient to be transferred there for EGD, consideration to repeat colonoscopy, monitor his hemoglobin. I strongly recommend the resumption of antiplatelets and Xarelto as soon as deemed to be safe by GI team at [facility] based on endoscopic findings. Abnormal chest imaging with the lymphadenopathy. History of lung cancer. I could not exclude the possibility of recurrence. After I discharged him last admission, the patient was seen by his consumer studies professor Dr. Brock in [place] According to patient's daughter, discussion took place regarding the need for bronchoscopy, biopsy versus watchful approach. The decision was made not to proceed with any intervention but repeat CAT scan in October. Patient does not have any respiratory symptoms. No cough or shortness of breath. Defer further needed diagnostic and therapeutic intervention added to his abnormality seen on recent chest imaging to be addressed by his consumer studies professor. Probable mild UTI Requested urine culture. I started patient on ceftriaxone Urine culture came back negative. Discontinue ceftriaxone. Peripheral vascular disease Recent vascular intervention completed in [place]. No clinical evidence of acute arterial compromise I recommend resumption of Xarelto and dual antiplatelet therapy as soon as GI at [facility] determines to be safe. Coronary artery disease. Previous history of coronary artery bypass graft No active chest pain or angina. Continue beta-kelsy. Continue isosorbide. Hold antiplatelets due to hemoglobin drop. Chronic, subacute medical conditions not listed above, abnormal labs and imaging, incidental findings seen on labs and or imaging. These would need to be addressed. Could be addressed later on or in the outpatient setting by PCP collaboration with other needed outpatient providers when time and condition are appropriate. I discussed this case with his daughter at the bedside at length. Time Spent with Patient Time attestation: Total time spent providing and/or coordinating discharge services: Exam Constitutional Vital Signs, click to edit/add: Last Vital Signs Temp 98.7 F 08/07/25 11:38 Pulse 70 08/07/25 12:00 Resp 18 08/07/25 11:38 BP 103/56 08/07/25 11:38 Pulse Ox 94 L 08/07/25 11:38 O2 Del Method Room Air 08/07/25 11:38 DS: Data Data Completed and Pending Labs on day of discharge: Labs from last 24 hours 08/07/25 08/07/25 08/05/25 06:03 05:22 13:55 WBC 5.6 RBC 2.83 L Hgb 8.4 L Hct 27.0 L MCV 95.4 H MCH 29.7 MCHC 31.1 RDW 17.0 H Plt Count 115 L MPV 9.3 L Haptoglobin 115 Sodium 144 Potassium 4.5 Chloride 109 H Carbon Dioxide 24.1 Anion Gap 15.4 BUN 19.0 H Creatinine 2.00 H Est GFR ( Amer) 40 L Est GFR (Non-Af Amer) 33 L BUN/Creatinine Ratio 9.5 Glucose 95 Calcium 8.4 L Vitamin B12 688 Stool Occult Blood Positive A Preliminary micro results at discharge 08/04/25 23:45 Urine Culture - Preliminary Urine,Clean Catch Pending - Specimen sent to [facility] Discharge Plan Discharge Disposition: Xfer Acute Care Hospital Condition: Fair
[2025-08-07] MEDS: ALPRAZOLAM 0.5 MG TABLET PO (14:41)
--- NOTE | 2025-08-07 15:47 | PC.NURSE ---
Pt was picked up bu [facility]. Report was called to Isela at [facility] at [phone].
== END 2025-08-07 15:40 | disposition short-term general hospital (02) | DRG 682 ==
LOC: ER 08-05 03:59 → MS 08-05 04:06
PROVIDERS: Admitting Provider Internal Medicine; Emergency Provider Internal Medicine; PCP Nurse Practitioner; Visit Provider Internal Medicine
DX: N17.9 Acute kidney failure, unspecified (principal); K57.91 Diverticulosis of intestine, part unspecified, without perforation or abscess with bleeding; I13.0 Hypertensive heart and chronic kidney disease with heart failure and stage 1 through stage 4 chronic kidney disease, or unspecified chronic kidney disease; N39.0 Urinary tract infection, site not specified; E86.1 Hypovolemia; N18.32 Chronic kidney disease, stage 3b; I50.9 Heart failure, unspecified; I73.9 Peripheral vascular disease, unspecified; I25.10 Atherosclerotic heart disease of native coronary artery without angina pectoris; D63.1 Anemia in chronic kidney disease; K64.9 Unspecified hemorrhoids; D50.8 Other iron deficiency anemias; F41.9 Anxiety disorder, unspecified; Z87.891 Personal history of nicotine dependence; Z85.118 Personal history of other malignant neoplasm of bronchus and lung; Z95.1 Presence of aortocoronary bypass graft
CPT/HCPCS: 36415; 36430; 71046; 74176; 80048; 80053; 81001; 82570; 82607; 82728; 82746; 83010; 83540; 83550; 83615; 83880; 84300; 84484; 85014; 85018; 85025; 85027; 85045; 86850; 86900; 86901; 86923; 87086; 93005; 99285; G0328; J0696; J0885; J1756; P9016